=== PATIENT | female | born 1965 | race Caucasian/White ===

== ENCOUNTER 2017-02-09 16:25 | Inpatient (IN) | payer OTHER ==
[2017-02-09 16:36] VITALS: BMI 41.5
--- NOTE | 2017-02-09 17:09 | PDOC ---
History of Present Illness - General History Source: Patient Exam Limitations: No Limitations - History of Present Illness Initial Comments: 02/09/17 17:41 The patient is a 51 year old female, with significant past medical history of DM , chronic lower extremity cellulitis, and gastritis, who presents to the emergency room with 2 days of left lateral thigh redness, warmth and pain, subjective fever, and chills. She explains that she got a sunburn on her legs 2 days ago. She has been putting noxzema on the burn and it started blistering. She noticed that the red area on the lateral portion of her thigh has increased over the past 2 days and has become increasingly painful. She states the pain is throbbing and exacerbated when walking. She also reports that her blood glucose has been abnormally high over the past 2 days around 340-380. She states that she is compliant with her medications and hasn't even been eating much. The patient notes that she is allergic to many antibiotics and not sure which one she can take. Denies chest pain, SOB. Denies nausea, vomiting, diarrhea. Allergies: Penicillin PCP: Dr. Maxwell Vascular: Dr. Wesley Rizzo Infectious Disease: Dr. De Leon 02/09/17 17:55 Patient underwent Doppler studies of bilateral lower extremities on 01/15/17 that were negative. <Chel Bacon - Last Filed: 02/09/17 18:47> <Nadja Zamudio - Last Filed: 02/09/17 19:14> - General Chief Complaint: Pain Stated Complaint: LEG INJURY Time Seen by Provider: 02/09/17 17:08 Past History <Chel Bacon - Last Filed: 02/09/17 18:47> - Past Medical History Anemia: No Asthma: No Cancer: No Cardiac Disorders: No CVA: No COPD: No CHF: No Dementia: No Diabetes: Yes GI Disorders: No Disorders: No HTN: No Hypercholesterolemia: No Liver Disease: No Seizures: No Thyroid Disease: No - Psycho/Social/Smoking Cessation Hx Anxiety: No Suicidal Ideation: No Smoking History: Never smoked Have you smoked in the past 12 months: No Number of Cigarettes Smoked Daily: 0 Information on smoking cessation initiated: No Hx Alcohol Use: No Drug/Substance Use Hx: No Substance Use Type: None Hx Substance Use Treatment: No <Nadja Zamudio - Last Filed: 02/09/17 19:14> - Past Medical History Allergies/Adverse Reactions: Allergies Allergy/AdvReac Type Severity Reaction Status Date / Time nut - unspecified Allergy Verified 02/09/17 16:36 Penicillins Allergy Verified 02/09/17 16:36 Home Medications: Ambulatory Orders Insulin Sliding Scale [Novolog Vial Sliding Scale -] See Protocol SQ ACHS #7 pen 09/19/15 Albuterol Sulfate Inhaler - [Ventolin HFA Inhaler -] 1 - 2 inh PO Q4H #1 inhaler 10/09/15 Bismuth Tribromoph/Petrolatum [Xeroform 5"X9" Gauze Strip] 1 each TP DAILY #10 bandage 10/09/15 Insulin Detemir [Levemir Flextouch] 5 unit SQ HS #0 10/09/15 Nystatin Oral Suspension - [Nystatin Oral Susp 924409 Units/5 ML -] 500,000 units PO Q6HPO 4 Days 10/09/15 Oxycodone HCl [Roxicodone -] 5 mg PO Q6H PRN #10 tablet MDD 4 10/09/15 Pantoprazole Sodium [Protonix -] 40 mg PO BID #60 tablet.ec 10/09/15 Triamcinolone 0.1% Cream [Aristocort 0.1% Cream -] 1 applic TP BID #1 tube 10/08 Clindamycin [Cleocin -] 300 mg PO BID 10/20/15 Review of Systems - Review of Systems Able to Perform ROS?: Yes Comments:: 02/09/17 17:45 GENERAL/CONSTITUTIONAL: +fever, +chills. No weakness. HEAD, EYES, EARS, NOSE AND THROAT: No change in vision. No ear pain or discharge. No sore throat. GASTROINTESTINAL: No nausea, vomiting, diarrhea or constipation. GENITOURINARY: No dysuria, frequency, or change in urination. CARDIOVASCULAR: No chest pain or shortness of breath. RESPIRATORY: No cough, wheezing, or hemoptysis. MUSCULOSKELETAL: No joint or muscle swelling or pain. No neck or back pain. SKIN: +sunburn on the thighs bilaterally with a portion on the lateral left thigh more painful and increasingly warm and red NEUROLOGIC: No headache, vertigo, loss of consciousness, or change in strength/ sensation. ENDOCRINE: No increased thirst. No abnormal weight change. HEMATOLOGIC/LYMPHATIC: No anemia, easy bleeding, or history of blood clots. ALLERGIC/IMMUNOLOGIC: No hives or skin allergy. <Chel Bacon - Last Filed: 02/09/17 18:47> *Physical Exam - Vital Signs Last Vital Signs Temp Pulse Resp BP Pulse Ox 103 F H 111 H 18 167/90 96 02/09/17 16:32 02/09/17 16:32 02/09/17 16:32 02/09/17 16:32 02/09/17 16:32 - Physical Exam Comments: 02/09/17 17:46 Constitutional: Awake, alert, oriented. Obese No acute distress. Head: Normocephalic. Atraumatic Eyes: PERRL. EOMI. Conjunctivae are not pale. Cardiovascular: Tachycardic. Regular rhythm. S1, S2 regular. Distal pulses are 2+ and symmetric. Pulmonary/Chest: Tachypneic. Conversational dyspnea. Worsening dyspnea with exertion. Lung sounds are diminished bilaterally. No wheezing, rales or rhonchi. Abdominal: Soft, obese, non distended. There is no tenderness. No rebound, guarding or rigidity. No organomegaly. No palpable masses. Good bowel sounds. Back: No CVA tenderness. Musculoskeletal: +There wound dressings below the knee bilaterally with foul odor and serous drainage. +On the medial aspect of the left thigh she has a second degree sunburn with blistering and surrounding erythema. On the lateral aspect of the left thigh there is some first degree sunburn with surrounding cellulitis that extends from the knee to hip and is tender with soft tissue swelling. No crepitus. No fluctuance, No drainage. Radial/pedal pulses are intact and 2+ bilaterally Neurological: Alert and oriented to person, place, and time. Cranial nerves II -XII are grossly intact. Normal speech. Strength is grossly symmetric. No sensory deficits. Psychiatric: Good eye contact. Normal interaction, affect and behavior. <Alejandra Baconica - Last Filed: 02/09/17 18:47> - Vital Signs Last Vital Signs Temp Pulse Resp BP Pulse Ox 103 F H 111 H 18 167/90 96 02/09/17 16:32 02/09/17 16:32 02/09/17 16:32 02/09/17 16:32 02/09/17 16:32 <Nadja Zamudio - Last Filed: 02/09/17 19:14> ED Treatment Course - LABORATORY CBC & Chemistry Diagram: 02/09/17 18:15 02/09/17 18:15 <Chel Bacon - Last Filed: 02/09/17 18:47> - LABORATORY CBC & Chemistry Diagram: 02/09/17 18:15 02/09/17 18:15 <Nadja Zamudio - Last Filed: 02/09/17 19:14> Medical Decision Making - Medical Decision Making 02/09/17 18:37 Dr. Maxwell was paged via paging service at 6:33pm for admission. Awaiting call back Dr. Maxwell called back at 6:38pm. Dr. Rizzo was paged via paging service at 6:35pm. Awaiting call back. Dr. Rizzo called back at 6:40pm 02/09/17 18:47 Dr. De Leon was paged via paging service at 6:47pm. Awaiting call back. <Chel Bacon - Last Filed: 02/09/17 18:47> - Medical Decision Making 02/09/17 18:01 a/p: 51yo female with L thigh pain, hx of cellulitis -sunburns now with worsening redness, pain, cellulitis to thigh -also with concern for uncontrolled dm with elevated glucose of 340 at home -labs -vbg -cultures -cxr -acetone -ivf hydration -will discuss with Dr. Maxwell and with Dr. Rizzo. 02/09/17 18:[address] Maxwell who accepts pt to service. Case discussed with dr. rizzo who will see pt in consult -call placed to dr. steel for abx recommendations 02/09/17 19:13 pt pending call back from ID and labs. Pt with elevated WBC. Pt will need admission. Pt pending plan from ID and will be signed out to the oncoming ED physician. <Nadja Zamudio - Last Filed: 02/09/17 19:14> *DC/Admit/Observation/Transfer - Attestations Scribe Attestion: 02/09/17 18:06 Documentation prepared by ISABELLA Abrams, acting as medical assistant internal medicine for Nadja Zamudio DO. <Chel Bacon - Last Filed: 02/09/17 18:47> - Attestations Physician Attestion: 02/09/17 19:14 I, Dr. Nadja Zamudio DO, attest that this document has been prepared under my direction and personally reviewed by me in its entirety. I further attest, that it accurately reflects all work, treatment, procedures and medical decision -making performed by me. <Nadja Zamudio - Last Filed: 02/09/17 19:14> Diagnosis at time of Disposition: Cellulitis, Metabolic acidosis Diagnosis at time of Disposition: (Ruled Out): Cellulitis and abscess of left lower extremity - Referrals Referrals: Onur Maxwell MD [Primary Care Provider] -
[2017-02-09] MEDS ORDERED: SODIUM CHLORIDE 0.9% 1000 ML INFUS.BAG IV ONE (17:32)
[2017-02-09] MEDS ORDERED: morphine CARPU-JECT 4 MG/1 ML DISP.SYRIN IVPUSH ONE (17:32)
[2017-02-09] MEDS ORDERED: ACETAMINOPHEN 325 MG TABLET (FP) PO ONE (17:32)
[2017-02-09 18:28] LABS: MCH 27.4 pg (25.7-33.7); MCHC 32.1 g/dl (32.0-36.0); MEAN CELL VOLUME 85.4 fl (80-96); MEAN PLT VOLUME 9.2 fl (7.5-11.1); PLATELET COUNT 356 K/MM3 (134-434); RDW 15.5 % (11.6-15.6)
[2017-02-09 18:32] LABS: WHITE BLOOD COUNT 29.6 K/mm3 (4.0-10.0)
[2017-02-09] MEDS ORDERED: morphine CARPU-JECT 4 MG/1 ML DISP.SYRIN ONE (18:35)
[2017-02-09 18:37] LABS: VENOUS PH 7.29 (7.32-7.42)
[2017-02-09] MEDS ORDERED: ACETAMINOPHEN 325 MG TABLET (FP) ONE (18:57)
[2017-02-09 19:24] LABS: ALBUMIN 2.7 g/dl (3.4-5.0); ALK PHOS 163 U/L (45-117); ANION GAP 11 (8-16); BILIRUBIN,TOTAL 0.5 mg/dL (0.2-1.0); CO2 20 mmol/L (21-32); CREATININE 1.5 mg/dL (0.55-1.02); GLUCOSE,RANDOM 220 mg/dL (74-106); MAGNESIUM 2.4 mg/dL (1.8-2.4); SGOT/AST 12 U/L (15-37); SGPT/ALT 29 U/L (12-78); TOT PROT 7.2 g/dl (6.4-8.2)
[2017-02-09 19:30] LABS: PLATELET ESTIMATE ADEQUATE (NORMAL); TOTAL CELLS COUNTED 100
[2017-02-09] MEDS ORDERED: ALBUTEROL SO4 2.5/IPRATROPIUM 0.5 INH SOL 3 ML VIAL.NEB. NEB PRN (19:38)
[2017-02-09] MEDS ORDERED: CLINDAMYCIN 600MG PREMIX IVPB 50 ML IVPB ONE ×2 (20:18→20:34)
[2017-02-09] MEDS ORDERED: MEROPENEM 1,000 MG in DEXTROSE 5%-WATER - 100 ML IVPB ONE (20:19)
--- NOTE | 2017-02-09 20:23 | PDOC ---
*Physical Exam - Vital Signs Last Vital Signs Temp Pulse Resp BP Pulse Ox 103 F H 111 H 18 167/90 96 02/09/17 16:32 02/09/17 16:32 02/09/17 16:32 02/09/17 16:32 02/09/17 16:32 <Jer Bruno - Last Filed: 02/09/17 20:26> - Vital Signs Last Vital Signs Temp Pulse Resp BP Pulse Ox 103 F H 111 H 18 167/90 96 02/09/17 16:32 02/09/17 16:32 02/09/17 16:32 02/09/17 16:32 02/09/17 16:32 <Alex De Leon I - Last Filed: 02/09/17 20:59> Heart Score/ECG Review #1 ECG reviewed & interpreted by me at: 20:15 02/09/17 20:27 Vent. rate: 105 bpm ND interval: 164 ms QRS duration: 84 ms QT/QTc: 310/409 ms P-R-T axes: 76 14 15 Poor data quality, interpretation may be adversly affected. Sinus tachycardia Cannot rule out Anterior infarct, age undetermined Abnormal ECG <Jer Bruno - Last Filed: 02/09/17 20:26> ED Treatment Course - LABORATORY CBC & Chemistry Diagram: 02/09/17 18:15 02/09/17 18:15 - ADDITIONAL ORDERS Additional order review: Laboratory Results 02/09/17 02/09/17 02/09/17 18:55 18:18 18:15 VBG pH 7.29 L POC VBG pCO2 42.8 D POC VBG pO2 22.9 L D Mixed VBG HCO3 20.0 Sodium Potassium Chloride Carbon Dioxide Anion Gap BUN Creatinine Creat Clearance w eGFR POC Glucometer [phone] Random Glucose Lactic Acid 2.5 H* Calcium Magnesium Total Bilirubin AST ALT Alkaline Phosphatase Total Protein Albumin Acetone, Qual 02/09/17 02/09/17 18:15 18:15 VBG pH POC VBG pCO2 POC VBG pO2 Mixed VBG HCO3 Sodium 139 Potassium 3.9 Chloride 108 H Carbon Dioxide 20 L Anion Gap 11 BUN 29 H D Creatinine 1.5 H D Creat Clearance w eGFR 36.32 POC Glucometer Random Glucose 220 H D Lactic Acid Calcium 9.0 Magnesium 2.4 D Total Bilirubin 0.5 AST 12 L ALT 29 D Alkaline Phosphatase 163 H D Total Protein 7.2 D Albumin 2.7 L Acetone, Qual Negative L 02/09/17 02/09/17 18:55 18:15 RBC 3.60 MCV 85.4 MCHC 32.1 RDW 15.5 D MPV 9.2 Neutrophils % No Result Required. Lymphocytes % No Result Required. POC Glucometer [phone] - RADIOLOGY Comments: CT to rule out necrotizing fasciitis. - Medications Given in the ED: ED Medications Discontinued Medications Generic Name Dose Route Start Last Admin Trade Name Freq PRN Reason Stop Dose Admin Acetaminophen 975 mg 02/09/17 17:32 02/09/17 18:59 Tylenol - PO 02/09/17 17:33 975 mg ONCE ONE Administration Morphine Sulfate 4 mg 02/09/17 17:32 02/09/17 18:39 Morphine Injection - IVPUSH 02/09/17 17:33 4 mg ONCE ONE Administration Sodium Chloride 1,000 ml 02/09/17 17:32 02/09/17 18:39 Normal Saline - IV 02/09/17 17:33 1,000 ml ONCE ONE Administration - Consult/PCP Time Called: 20:10 Case discussed with consulting physician: Lynda De Leon Consult Reason/Comments: Suggested administration of meropenem, vancomycin, and clindamycin. <Jer Bruno - Last Filed: 02/09/17 20:26> - LABORATORY CBC & Chemistry Diagram: 02/09/17 18:15 02/09/17 18:15 - ADDITIONAL ORDERS Additional order review: Laboratory Results 02/09/17 02/09/17 02/09/17 18:55 18:18 18:15 VBG pH 7.29 L POC VBG pCO2 42.8 D POC VBG pO2 22.9 L D Mixed VBG HCO3 20.0 Sodium Potassium Chloride Carbon Dioxide Anion Gap BUN Creatinine Creat Clearance w eGFR POC Glucometer [phone] Random Glucose Lactic Acid 2.5 H* Calcium Magnesium Total Bilirubin AST ALT Alkaline Phosphatase Total Protein Albumin Acetone, Qual 02/09/17 02/09/17 18:15 18:15 VBG pH POC VBG pCO2 POC VBG pO2 Mixed VBG HCO3 Sodium 139 Potassium 3.9 Chloride 108 H Carbon Dioxide 20 L Anion Gap 11 BUN 29 H D Creatinine 1.5 H D Creat Clearance w eGFR 36.32 POC Glucometer Random Glucose 220 H D Lactic Acid Calcium 9.0 Magnesium 2.4 D Total Bilirubin 0.5 AST 12 L ALT 29 D Alkaline Phosphatase 163 H D Total Protein 7.2 D Albumin 2.7 L Acetone, Qual Negative L 02/09/17 02/09/17 18:55 18:15 RBC 3.60 MCV 85.4 MCHC 32.1 RDW 15.5 D MPV 9.2 Neutrophils % No Result Required. Lymphocytes % No Result Required. POC Glucometer [phone] - Medications Given in the ED: ED Medications Discontinued Medications Generic Name Dose Route Start Last Admin Trade Name Freq PRN Reason Stop Dose Admin Acetaminophen 975 mg 02/09/17 17:32 02/09/17 18:59 Tylenol - PO 02/09/17 17:33 975 mg ONCE ONE Administration Morphine Sulfate 4 mg 02/09/17 17:32 02/09/17 18:39 Morphine Injection - IVPUSH 02/09/17 17:33 4 mg ONCE ONE Administration Sodium Chloride 1,000 ml 02/09/17 17:32 02/09/17 18:39 Normal Saline - IV 02/09/17 17:33 1,000 ml ONCE ONE Administration <Alex De Leon I - Last Filed: 02/09/17 20:59> Progress Note - Progress Note Progress Note: Care of this patient transferred to ne at 7pm. Pt is an insulin dependant diabetic with chronic venous stasis and frequent infections. Pt has a leg cellulites, mkd elevated wbc of 29,000. with big left shift. Pt will get CT to r/o nec. fasc. and start on antibiotics post ID consult. <Alex De Leon I - Last Filed: 02/09/17 20:59> *DC/Admit/Observation/Transfer <Jer Bruno - Last Filed: 02/09/17 20:26> - Discharge Dispostion Admit: Yes <Alex De Leon I - Last Filed: 02/09/17 20:59> Diagnosis at time of Disposition: Cellulitis, Metabolic acidosis - Referrals Referrals: Onur Maxwell MD [Primary Care Provider] - - Patient Instructions - Post Discharge Activity
[2017-02-09] MEDS ORDERED: INSULIN DETEMIR 100 UNITS/ML MDV SQ SCH (22:00)
[2017-02-09] MEDS ORDERED: VANCOMYCIN 1 GRAM (PRE-DOCKED) 1,000 MG/250 ML BAG IVPB ONE (22:30)
[2017-02-09] MEDS: VANCOMYCIN 1 GRAM (PRE-DOCKED) 1,000 MG/250 ML BAG IVPB ONE ×3 (22:45→23:08)
[2017-02-09] MEDS: INSULIN SLIDING SCALE (NOVOLOG) 1 VIAL SQ SCH (22:48)
[2017-02-09] MEDS: INSULIN DETEMIR 100 UNITS/ML MDV SQ SCH (22:48)
[2017-02-09] MEDS: HEPARIN NA (PORCINE) 5,000 UNITS/ML 1ML VIAL SQ SCH (22:49)
[2017-02-09] MEDS: BACITRACIN 15 GM TUBE TOPICAL OINTMENT TP SCH (22:50)
[2017-02-09] MEDS: ACETAMINOPHEN 325 MG TABLET (FP) PO PRN (23:50)
[2017-02-10] MEDS: INSULIN SLIDING SCALE (NOVOLOG) 1 VIAL SQ SCH ×4 (07:05→21:40)
[2017-02-10 07:16] LABS: MCH 27.3 pg (25.7-33.7); MCHC 31.3 g/dl (32.0-36.0); MEAN CELL VOLUME 87.2 fl (80-96); MEAN PLT VOLUME 9.2 fl (7.5-11.1); PLATELET COUNT 404 K/MM3 (134-434); RDW 15.5 % (11.6-15.6)
[2017-02-10 07:25] LABS: WHITE BLOOD COUNT 38.4 K/mm3 (4.0-10.0)
[2017-02-10 07:45] LABS: ALBUMIN 2.4 g/dl (3.4-5.0); ANION GAP 15 (8-16); CALCIUM 8.6 mg/dL (8.5-10.1); CO2 17 mmol/L (21-32); GLUCOSE,RANDOM 275 mg/dL (74-106); SGOT/AST 11 U/L (15-37); SGPT/ALT 24 U/L (12-78)
[2017-02-10 07:47] LABS: ALK PHOS 148 U/L (45-117); BILIRUBIN,TOTAL 1.2 mg/dL (0.2-1.0); CREATININE 2.6 mg/dL (0.55-1.02); TOT PROT 6.1 g/dl (6.4-8.2)
[2017-02-10 08:59] LABS: PLATELET ESTIMATE ADEQUATE (NORMAL); TOTAL CELLS COUNTED 10
[2017-02-10] MEDS: PANTOPRAZOLE 40 MG TABLET (FP) PO SCH (10:29)
[2017-02-10] MEDS: ACETAMINOPHEN 325 MG TABLET (FP) PO PRN ×2 (10:29→21:55)
[2017-02-10] MEDS: HEPARIN NA (PORCINE) 5,000 UNITS/ML 1ML VIAL SQ SCH ×2 (10:29→21:32)
[2017-02-10] MEDS: BACITRACIN 15 GM TUBE TOPICAL OINTMENT TP SCH ×2 (10:30→21:34)
[2017-02-10] MEDS ORDERED: PT OWN MED DRAWER 7, Y5N ONE ×2 (10:50→14:05)
[2017-02-10] MEDS: NYSTATIN POWDER 100,000 UNITS/GM - 15 GM TOPICAL POWDER TP SCH (10:55)
--- NOTE | 2017-02-10 11:20 | HP ---
Admitting History and Physical - Primary Care Physician PCP: Onur Maxwell - Admission Chief Complaint: ACUTE ON CHRONIC CELLULITIS TO LEGS WITH SKIN ULCERS History of Present Illness: The patient is a 51 year old female, with significant past medical history of DM , chronic lower extremity cellulitis, and gastritis, who presents to the emergency room with 2 days of left lateral thigh redness, warmth and pain, subjective fever, and chills. She explains that she got a sunburn on her legs 2 days ago. She has been putting noxzema on the burn and it started blistering. She noticed that the red area on the lateral portion of her thigh has increased over the past 2 days and has become increasingly painful. She states the pain is throbbing and exacerbated when walking. She also reports that her blood glucose has been abnormally high over the past 2 days around 340-380. She states that she is compliant with her medications and hasn't even been eating much. The patient notes that she is allergic to many antibiotics and not sure which one she can take. History Source: Patient, Medical Record Limitations to Obtaining History: Poor Historian - Past Medical History Pulmonary: Yes: Asthma Gastrointestinal: Yes: Other (gallstones) Heme/Onc: Yes: Other Psych: Yes: Bipolar Endocrine: Yes: Diabetes Mellitus Dermatology: Yes: Cellulitis - Smoking History Smoking history: Never smoked Have you smoked in the past 12 months: No Aproximately how many cigarettes per day: 0 - Alcohol/Substance Use Hx Alcohol Use: No History of Substance Use: reports: Prescription (narcotics) Home Medications - Allergies Allergies/Adverse Reactions: Allergies Allergy/AdvReac Type Severity Reaction Status Date / Time nut - unspecified Allergy Verified 02/09/17 16:36 Penicillins Allergy Verified 02/09/17 16:36 - Home Medications Home Medications: Ambulatory Orders Insulin Sliding Scale [Novolog Vial Sliding Scale -] See Protocol SQ ACHS #7 pen 09/19/15 Albuterol Sulfate Inhaler - [Ventolin HFA Inhaler -] 1 - 2 inh PO Q4H #1 inhaler 10/09/15 Insulin Detemir [Levemir Flextouch] 5 unit SQ HS #0 10/09/15 Oxycodone HCl [Roxicodone -] 5 mg PO Q6H PRN #10 tablet MDD 4 10/09/15 Pantoprazole Sodium [Protonix -] 40 mg PO BID #60 tablet.ec 10/09/15 Clindamycin [Cleocin -] 300 mg PO BID 10/20/15 Gabapentin 0 mg PO DAILY 02/09/17 Multivitamin [Poly-Vitamin] 1 each PO DAILY 02/09/17 Family Disease History - Family Disease History Family Disease History: Other: Brother (stomach cancer), Sister (breast cancer) Review of Systems - Review of Systems Constitutional: reports: Fever, Lethargy, Weakness Eyes: reports: No Symptoms HENT: reports: No Symptoms Neck: reports: No Symptoms Cardiovascular: reports: No Symptoms Respiratory: reports: Wheezing Genitourinary: reports: No Symptoms Musculoskeletal: reports: Extremity Pain, Joint Swelling, Muscle Weakness Integumentary: reports: Blister, Erythema, Rash, Wound Neurological: reports: Other Endocrine: reports: No Symptoms Hematology/Lymphatic: reports: No Symptoms Psychiatric: reports: Altered Sleep Pattern, Other Physical Examination Vital Signs: Vital Signs Temperature 100 F H 02/10/17 07:56 Pulse Rate 92 H 02/10/17 07:56 Respiratory Rate 22 02/10/17 07:56 Blood Pressure 98/56 02/10/17 07:56 O2 Sat by Pulse Oximetry (%) 96 02/09/17 22:40 Constitutional: Yes: Moderate Distress Eyes: Yes: WNL HENT: Yes: WNL Neck: Yes: WNL Cardiovascular: Yes: WNL Respiratory: Yes: SOB, Wheezes Gastrointestinal: Yes: WNL Renal/: Yes: WNL Musculoskeletal: Yes: Muscle Weakness Extremities: Yes: Erythema Edema: Yes Edema: LLE: 3+, RLE: 3+ Peripheral Pulses WNL: Yes Integumentary: Yes: Erythema, Pressure Ulcer, Rash, Venous Stasis Changes, Other Wound/Incision: Yes: Dressing Dry and Intact, Draining Neurological: Yes: Pre-Existing Deficit ...Motor Strength: LLE, RLE Psychiatric: Yes: Other Labs: CBC, BMP 02/10/17 06:30 02/10/17 06:30 Problem List - Problems (1) Cellulitis Code(s): L03.90 - CELLULITIS, UNSPECIFIED Qualifiers: Site of cellulitis of extremity: lower extremity Laterality: right (2) Allergic reaction Code(s): T78.40XA - ALLERGY, UNSPECIFIED, INITIAL ENCOUNTER (3) DM2 (diabetes mellitus, type 2) Code(s): E11.9 - TYPE 2 DIABETES MELLITUS WITHOUT COMPLICATIONS Qualifiers: Diabetes mellitus complication detail: with other circulatory complications (4) Sleep apnea Code(s): G47.30 - SLEEP APNEA, UNSPECIFIED Qualifiers: Sleep apnea type: idiopathic sleep related nonobstructive alveolar hypoventilation Qualified Code(s): G47.34 - Idiopathic sleep related nonobstructive alveolar hypoventilation (5) Asthma Code(s): J45.909 - UNSPECIFIED ASTHMA, UNCOMPLICATED Qualifiers: Asthma severity: mild intermittent (6) Obesity Code(s): E66.9 - OBESITY, UNSPECIFIED Qualifiers: Obesity type: due to excess calories Body mass index: BMI 50.0-59.9 Assessment/Plan WOUNDS EXAMINED B/L LEGS WITH MULTIPLES ULCERS ERYTHEMA, SKIN EXCORIATIONS, WEEPING EDEMA. D/W DR JAIN, PATIENT WILL NEED IV ABX WOUND CARE ID CONSULT ASTHMA START NEBS SLEEP STUDY OUTPATIENT PULM F/U COMPLIANCE TO DIET AND MEDICATIONS
--- NOTE | 2017-02-10 11:22 | CONSULT ---
Consult - Past Medical History Gastrointestinal: Yes: Other (gallstones) Psych: Yes: Bipolar Endocrine: Yes: Diabetes Mellitus Dermatology: Yes: Cellulitis - Alcohol/Substance Use Hx Alcohol Use: No History of Substance Use: reports: Prescription (narcotics) - Smoking History Smoking history: Never smoked Have you smoked in the past 12 months: No Aproximately how many cigarettes per day: 0 Home Medications - Allergies Allergies/Adverse Reactions: Allergies Allergy/AdvReac Type Severity Reaction Status Date / Time nut - unspecified Allergy Verified 02/09/17 16:36 Penicillins Allergy Verified 02/09/17 16:36 - Home Medications Home Medications: Ambulatory Orders Insulin Sliding Scale [Novolog Vial Sliding Scale -] See Protocol SQ ACHS #7 pen 09/19/15 Albuterol Sulfate Inhaler - [Ventolin HFA Inhaler -] 1 - 2 inh PO Q4H #1 inhaler 10/09/15 Insulin Detemir [Levemir Flextouch] 5 unit SQ HS #0 10/09/15 Oxycodone HCl [Roxicodone -] 5 mg PO Q6H PRN #10 tablet MDD 4 10/09/15 Pantoprazole Sodium [Protonix -] 40 mg PO BID #60 tablet.ec 10/09/15 Clindamycin [Cleocin -] 300 mg PO BID 10/20/15 Gabapentin 0 mg PO DAILY 02/09/17 Multivitamin [Poly-Vitamin] 1 each PO DAILY 02/09/17 Family Disease History - Family Disease History Family Disease History: Other: Brother (stomach cancer), Sister (breast cancer) Physical Exam Vital Signs: Vital Signs Temperature 100 F H 02/10/17 07:56 Pulse Rate 92 H 02/10/17 07:56 Respiratory Rate 22 02/10/17 07:56 Blood Pressure 98/56 02/10/17 07:56 O2 Sat by Pulse Oximetry (%) 96 02/09/17 22:40 Labs: CBC, BMP 02/10/17 06:30 02/10/17 06:30 Assessment/Plan Vascular Surgery The patient is a 51 year old female, with significant past medical history of DM , chronic lower extremity cellulitis, and gastritis, who presents to the emergency room with 2 days of left lateral thigh redness, warmth and pain, subjective fever, and chills. She explains that she got a sunburn on her legs 2 days ago. She has been putting noxzema on the burn and it started blistering. She noticed that the red area on the lateral portion of her thigh has increased over the past 2 days and has become increasingly painful. She states the pain is throbbing and exacerbated when walking. She also reports that her blood glucose has been abnormally high over the past 2 days around 340-380. She states that she is compliant with her medications and hasn't even been eating much. The patient notes that she is allergic to many antibiotics and not sure which one she can take. Denies chest pain, SOB. Denies nausea, vomiting, diarrhea. Allergies: Penicillin PCP: Dr. Maxwell Vascular: Dr. Wesley Calderon Infectious Disease: Dr. De Leon 02/09/17 17:55 Patient underwent Doppler studies of bilateral lower extremities on 01/15/17 that were negative. PE Head - NC/AT Lung - CTA Heart - RRR abd - soft,nt,nd ext - bilateral lower ext venous stasis ulcers with weeping. Left thigh erythema, tender to touch Palpable pulses. A/P Bilateral lower ext lymphedema with venous stasis ulcers with weeping. Now with cellulitis of left thigh , tender to touch. Dressings changed. Xeroform/ABD pads, MARIS for compression. ID on case for celllulitis Leg elevation. Pt will need to come to wound care clinic for weekly changes. Will follow Wesley Calderon DO
--- NOTE | 2017-02-10 11:51 | CON.ID ---
Consult Consult Specialty:: INFECTIOUS DISEASE - History of Present Illness Chief Complaint: LLE pain History of Present Illness: Asked to evaluate this 51 y.o. female with history of IDDM, LE chronic cellulitis, gastritis, asthma,and obesity who is coming in with LLE severe,pain , warmth, erythema, and fever/chills. States condition has worsened in the last 2 days and her glucose has been elevated, >300. She was noted to have fever ( 100.3F) and elevated wbc. She also states that she believe that Lt upper thigh erythema is due to a sunburn and she has been applying noxema to it. 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: No: Alzheimer's, CVA, Dementia, Migraine, Multiple Sclerosis, Peripheral Neuropathy, Parkinson's, Seizure, Syncope, TIA, Vertigo, Other Cardio/Vascular: No: AFIB, Aneurysm, Aortic Insufficiency, Aortic Stenosis, CAD , CHF, Deep Vein Thrombosis, HTN, Hyperlipdemia, LA, Mitral Insufficiency, Mitral Stenosis, Murmur, Pulmonary Hypertension, Other Pulmonary: Yes: Asthma Gastrointestinal: Yes: Other (gallstones) Hepatobiliary: No: Cirrhosis, Cholelithiasis, Cholecystitis, Choledocholithiasis , Hepatitis A, Hepatitis B, Hepatitis C, Other Reproductive: No: Ectopic , Endometriosis, Fibroids, PID, Polycystic Ovary Syndrome, Postmenopausal, Other Heme/Onc: No: Anemia, B12 Deficiency, Bleeding Disorder, Cancer, Current Chemotherapy, Current Radiation Therapy, Hemochromatosis, Hypercoaguable State, Myeloproliferative Synd, Sickle Cell Disease, Sickle Cell Trait, Thrombocytopenia, Other Infectious Disease: Yes: Other (LE cellulitis) Psych: Yes: Bipolar Musculoskeletal: No: Bursitis, Chronic low back pain, Hemiparesis, Hemiplegia, Osteoarthritis, Paraplegia, Other Rheumatology: No: Fibromyalgia, Gout, Lupus, Rheumatoid Arthritis, Sarcoidosis, Vasculitis, Other Endocrine: Yes: Diabetes Mellitus Dermatology: Yes: Cellulitis (b/l LE with ulcerations) - Past Surgical History Past Surgical History: No: None, AAA Repair, AICD, Amputation, Appendectomy, Arthrosocopy, AV Fistula/Graft, Bariatric Surgery, Breast Biopsy, Bypass, CABG, Carotid Endarterectomy, Cataract Removal, Cholecystectomy, Colectomy, Colonoscopy, Colostomy, Craniotomy, , Cystectomy, Hernia Repair, Hysterectomy, Ileal Conduit, Ileosotomy, Joint Replacement, Kidney Transplant, Laminectomy, Liver Transplant, Mastectomy, Nephrectomy, Oopherectomy, Orchiectomy, Permanent Pacemaker, Prostatectomy, Splenectomy, Stent, Thoracotomy , TURP, Tonsillectomy, Tubal Ligation, Upper Endoscopy, Valve Replacement, Vasectomy, Vein Stripping/Ligation - Alcohol/Substance Use Hx Alcohol Use: No History of Substance Use: reports: Prescription (narcotics) - Smoking History Smoking history: Never smoked Have you smoked in the past 12 months: No Aproximately how many cigarettes per day: 0 Home Medications - Allergies Allergies/Adverse Reactions: Allergies Allergy/AdvReac Type Severity Reaction Status Date / Time nut - unspecified Allergy Verified 02/09/17 16:36 Penicillins Allergy Verified 02/09/17 16:36 - Home Medications Home Medications: Ambulatory Orders Insulin Sliding Scale [Novolog Vial Sliding Scale -] See Protocol SQ ACHS #7 pen 09/19/15 Albuterol Sulfate Inhaler - [Ventolin HFA Inhaler -] 1 - 2 inh PO Q4H #1 inhaler 10/09/15 Insulin Detemir [Levemir Flextouch] 5 unit SQ HS #0 10/09/15 Oxycodone HCl [Roxicodone -] 5 mg PO Q6H PRN #10 tablet MDD 4 10/09/15 Pantoprazole Sodium [Protonix -] 40 mg PO BID #60 tablet.ec 10/09/15 Clindamycin [Cleocin -] 300 mg PO BID 10/20/15 Gabapentin 0 mg PO DAILY 02/09/17 Multivitamin [Poly-Vitamin] 1 each PO DAILY 02/09/17 Family Disease History - Family Disease History Family Disease History: Other: Brother (stomach cancer), Sister (breast cancer) Review of Systems - Review of Systems Constitutional: reports: Chills, Fever Eyes: reports: No Symptoms HENT: reports: No Symptoms Neck: reports: No Symptoms Cardiovascular: reports: No Symptoms Respiratory: reports: No Symptoms Gastrointestinal: reports: No Symptoms Genitourinary: reports: No Symptoms Breasts: reports: No Symptoms Reported Musculoskeletal: reports: No Symptoms Integumentary: reports: Blister, Erythema Neurological: reports: No Symptoms Physical Exam Vital Signs: Vital Signs Temperature 100 F H 02/10/17 07:56 Pulse Rate 92 H 02/10/17 07:56 Respiratory Rate 22 02/10/17 07:56 Blood Pressure 98/56 02/10/17 07:56 O2 Sat by Pulse Oximetry (%) 96 02/09/17 22:40 Constitutional: Yes: No Distress Neck: Yes: Supple Cardiovascular: Yes: Regular Rate and Rhythm Respiratory: Yes: Regular Gastrointestinal: Yes: Normal Bowel Sounds, Soft Renal/: Yes: WNL Musculoskeletal: Yes: WNL Extremities: Yes: Erythema Integumentary: Yes: Erythema, Venous Stasis Changes (B/L LE erythema, LLE ulcerations with green, malodorous discharge. LLE erythema/pain extending to Lt lateral upper thigh) Wound/Incision: Yes: Draining (LLE ulcers weeping) Neurological: Yes: Alert ...Motor Strength: WNL Psychiatric: Yes: Alert Labs: CBC, BMP 02/10/17 06:30 02/10/17 06:30 Problem List - Problems (1) Asthma Code(s): J45.909 - UNSPECIFIED ASTHMA, UNCOMPLICATED Qualifiers: Asthma severity: mild intermittent (2) Cellulitis Code(s): L03.90 - CELLULITIS, UNSPECIFIED Qualifiers: Site of cellulitis of extremity: lower extremity Laterality: right (3) Obesity Code(s): E66.9 - OBESITY, UNSPECIFIED Qualifiers: Obesity type: due to excess calories Body mass index: BMI 50.0-59.9 (4) Acute renal failure Code(s): N17.9 - ACUTE KIDNEY FAILURE, UNSPECIFIED (5) Chronic cellulitis Code(s): L03.90 - CELLULITIS, UNSPECIFIED (6) DM2 (diabetes mellitus, type 2) Code(s): E11.9 - TYPE 2 DIABETES MELLITUS WITHOUT COMPLICATIONS Qualifiers: Diabetes mellitus complication detail: with other circulatory complications (7) Leukocytosis Code(s): D72.829 - ELEVATED WHITE BLOOD CELL COUNT, UNSPECIFIED (8) Sepsis Code(s): A41.9 - SEPSIS, UNSPECIFIED ORGANISM Qualifiers: Sepsis type: sepsis due to unspecified organism Qualified Code(s): A41.9 - Sepsis, unspecified organism (9) Fever Code(s): R50.9 - FEVER, UNSPECIFIED Assessment/Plan B/L LE cellulitis, L>R LLE infected ulcers Febrile Elevated wbc Sepsis - recommend Vancomycin/Meropenem/Clindamycin - monitor closely for signs of allergic reaction to Meropenem (has tolerated before) - suggest LLE Xray - monitor wbc, renal function - wound care, leg elevation
[2017-02-10] MEDS: oxyCODONE HCL 5 MG TABLET PO PRN (13:45)
[2017-02-10] MEDS: SILVER SULFADIAZINE 1% TOP CREAM 50 GM JAR TP SCH (13:55)
[2017-02-10] MEDS: BUDESONIDE/FORMETEROL FUMARATE 80/4.5 mcg INHALER IH SCH ×2 (13:55→21:32)
[2017-02-10] MEDS ORDERED: SODIUM CHLORIDE 0.45% 1,000 ML IV SCH (15:45)
--- NOTE | 2017-02-10 17:51 | CON.NEP ---
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: Alzheimer's, CVA, Dementia, Migraine, Multiple Sclerosis, Peripheral Neuropathy, Parkinson's, Seizure, Syncope, TIA, Vertigo, Other Cardio/Vascular: No: AFIB, Aneurysm, Aortic Insufficiency, Aortic Stenosis, CAD , CHF, Deep Vein Thrombosis, HTN, Hyperlipdemia, PA, Mitral Insufficiency, Mitral Stenosis, Murmur, Pulmonary Hypertension, Other Pulmonary: Yes: Asthma Gastrointestinal: Yes: Other (gallstones) Hepatobiliary: No: Cirrhosis, Cholelithiasis, Cholecystitis, Choledocholithiasis , Hepatitis A, Hepatitis B, Hepatitis C, Other Infectious Disease: Yes: Other (LE cellulitis) Psych: Yes: Bipolar Musculoskeletal: No: Bursitis, Chronic low back pain, Hemiparesis, Hemiplegia, Osteoarthritis, Paraplegia, Other Rheumatology: No: Fibromyalgia, Gout, Lupus, Rheumatoid Arthritis, Sarcoidosis, Vasculitis, Other Endocrine: Yes: Diabetes Mellitus Dermatology: Yes: Cellulitis (b/l LE with ulcerations) - Past Surgical History Past Surgical History: No: None, AAA Repair, AICD, Amputation, Appendectomy, Arthrosocopy, AV Fistula/Graft, Bariatric Surgery, Breast Biopsy, Bypass, CABG, Carotid Endarterectomy, Cataract Removal, Cholecystectomy, Colectomy, Colonoscopy, Colostomy, Craniotomy, , Cystectomy, Hernia Repair, Hysterectomy, Ileal Conduit, Ileosotomy, Joint Replacement, Kidney Transplant, Laminectomy, Liver Transplant, Mastectomy, Nephrectomy, Oopherectomy, Orchiectomy, Permanent Pacemaker, Prostatectomy, Splenectomy, Stent, Thoracotomy , TURP, Tonsillectomy, Tubal Ligation, Upper Endoscopy, Valve Replacement, Vasectomy, Vein Stripping/Ligation - Alcohol/Substance Use Hx Alcohol Use: No History of Substance Use: reports: Prescription (narcotics) - Smoking History Smoking history: Never smoked Have you smoked in the past 12 months: No Aproximately how many cigarettes per day: 0 Home Medications - Allergies Allergies/Adverse Reactions: Allergies Allergy/AdvReac Type Severity Reaction Status Date / Time nut - unspecified Allergy Verified 02/09/17 16:36 Penicillins Allergy Verified 02/09/17 16:36 - Home Medications Home Medications: Ambulatory Orders Insulin Sliding Scale [Novolog Vial Sliding Scale -] See Protocol SQ ACHS #7 pen 09/19/15 Albuterol Sulfate Inhaler - [Ventolin HFA Inhaler -] 1 - 2 inh PO Q4H #1 inhaler 10/09/15 Insulin Detemir [Levemir Flextouch] 5 unit SQ HS #0 10/09/15 Oxycodone HCl [Roxicodone -] 5 mg PO Q6H PRN #10 tablet MDD 4 10/09/15 Pantoprazole Sodium [Protonix -] 40 mg PO BID #60 tablet.ec 10/09/15 Clindamycin [Cleocin -] 300 mg PO BID 10/20/15 Gabapentin 0 mg PO DAILY 02/09/17 Multivitamin [Poly-Vitamin] 1 each PO DAILY 02/09/17 Family Disease History - Family Disease History Family History: Unable to Obtain Family Disease History: Other: Brother (stomach cancer), Sister (breast cancer) Review of Systems - Review of Systems Constitutional: reports: No Symptoms Eyes: denies: No Symptoms, Blind Spots, Blurred Vision, Double Vision, Eye Pain , Floaters, Photophobia, Recent Change in Vision, Other HENT: denies: No Symptoms, Difficult Swallowing, Ear Discharge, Ear Pain, Epistaxis, Gingival Bleeding, Hearing Loss, Mouth Swelling, Nasal Congestion, Ocular Prosthesis, Throat Pain, Toothache, Ringing in Ears, Other Neck: denies: No Symptoms, Decreased ROM, Lumps, Pain on Movement, Stiffness, Swollen Glands, Tenderness, Other Respiratory: denies: No Symptoms, Cough, Exercise Intolerance, Hemoptysis, Orthopnea, PND, Snoring, SOB, SOB on Exertion, Wheezing, Other Genitourinary: denies: No Symptoms, Burning, Discharge, Dysuria, Flank Pain, Frequency, Hematuria, Incontinence, Lesions, Menses, Pain, Testicular Mass, Testicular Pain, Testicular Swelling, Urgency, Vaginal Bleeding, Other Breasts: denies: No Symptoms Reported, See HPI, Breast Implants, Discharge from Nipple, Lumps, Pain, Skin Changes, Other Musculoskeletal: reports: Extremity Pain Integumentary: reports: Erythema, Lesions, Rash Neurological: denies: No Symptoms, Change in LOC, Change in Speech, Confusion, Dizziness, Headache, Incoordination, Numbness, Parasthesia, Pre-Existing Deficit , Seizure, Syncope, Tremors, Unsteady Gait, Weakness, Other Endocrine: denies: No Symptoms, Excessive Sweating, Flushing, Increased Hunger, Increased Thirst, Intolerance to Cold, Intolerance to Heat, Unexplained Weight Gain, Unexplained Weight Loss, Other Hematology/Lymphatic: denies: No Symptoms, Easily Bruised, Excessive Bleeding, Swollen Glands, Other Psychiatric: denies: No Symptoms, Altered Sleep Pattern, Anxiety, Depression, Hallucinations, Panic, Paranoia, Suicidal, Other Nephrology Consult - Height Height: 5 ft 5 in - Weight Weight: 250 lb - BMI Body Mass Index (BMI): 41.5 - Lab Results CBC,BMP: CBC, BMP 02/10/17 06:30 02/10/17 06:30 Anion Gap: Anion Gap Anion Gap 15 (8-16) 02/10/17 06:30 - Physical Examination Vital Signs: Vital Signs Temperature 99.3 F 02/10/17 17:09 Pulse Rate 97 H 02/10/17 17:09 Respiratory Rate 20 02/10/17 17:09 Blood Pressure 98/41 02/10/17 17:09 O2 Sat by Pulse Oximetry (%) 97 02/10/17 09:00 Constitutional: Yes: Obese Eyes: Yes: WNL, Conjunctiva Clear, EOM Intact HENT: Yes: WNL, Atraumatic, Normocephalic Neck: Yes: WNL, Supple, Trachea Midline Cardiovascular: Yes: WNL, Regular Rate and Rhythm Respiratory: Yes: WNL, Regular, CTA Bilaterally Gastrointestinal: Yes: WNL, Normal Bowel Sounds Renal/: Yes: WNL Musculoskeletal: Yes: Muscle Pain, Muscle Weakness Extremities: Yes: Erythema Edema: Yes Edema: LLE: 3+, RLE: 3+ Peripheral Pulses WNL: Yes Integumentary: Yes: Erythema, Rash, Venous Stasis Changes Neurological: Yes: Alert, Oriented Psychiatric: Yes: WNL Assessment/Plan cellulitis sepsis baldo on chronic kidney disease lymphedema Plan- add ivf 1/2 ns ( she had normal lv function and lvef last year)
[2017-02-10] MEDS: CLINDAMYCIN 900 MG PREMIX IVPB 50 ML IVPB SCH (18:26)
[2017-02-10] MEDS: MEROPENEM 1 GM in DEXTROSE 5%-WATER 100 ML IVPB SCH (21:32)
[2017-02-10] MEDS: INSULIN DETEMIR 100 UNITS/ML MDV SQ SCH (21:38)
[2017-02-10] MEDS ORDERED: INSULIN (NOVOLOG) ASPART 100 UNITS/ML 10ML VIAL ONE (21:38)
[2017-02-11] MEDS: CLINDAMYCIN 900 MG PREMIX IVPB 50 ML IVPB SCH ×3 (01:30→17:19)
[2017-02-11] MEDS: INSULIN SLIDING SCALE (NOVOLOG) 1 VIAL SQ SCH ×4 (06:40→21:52)
[2017-02-11 07:27] LABS: MCH 27.3 pg (25.7-33.7); MCHC 32.2 g/dl (32.0-36.0); MEAN CELL VOLUME 84.9 fl (80-96); MEAN PLT VOLUME 9.5 fl (7.5-11.1); PLATELET COUNT 342 K/MM3 (134-434); RDW 15.6 % (11.6-15.6); WHITE BLOOD COUNT 29.7 K/mm3 (4.0-10.0)
[2017-02-11 07:55] LABS: ALBUMIN 1.9 g/dl (3.4-5.0); ALK PHOS 131 U/L (45-117); ANION GAP 15 (8-16); BILIRUBIN,TOTAL 0.7 mg/dL (0.2-1.0); CO2 17 mmol/L (21-32); CREATININE 3.1 mg/dL (0.55-1.02); GLUCOSE,RANDOM 233 mg/dL (74-106); SGOT/AST 13 U/L (15-37); SGPT/ALT 22 U/L (12-78); TOT PROT 5.3 g/dl (6.4-8.2)
[2017-02-11] MEDS ORDERED: VANCOMYCIN 1,000 MG in DEXTROSE 5%-WATER - 250 ML IVPB SCH (10:00)
[2017-02-11] MEDS: HEPARIN NA (PORCINE) 5,000 UNITS/ML 1ML VIAL SQ SCH ×2 (10:11→21:15)
[2017-02-11] MEDS ORDERED: VANCOMYCIN 1 GRAM (PRE-DOCKED) 250 ML IVPB SCH (10:11)
[2017-02-11] MEDS: PANTOPRAZOLE 40 MG TABLET (FP) PO SCH (10:12)
[2017-02-11] MEDS: BACITRACIN 15 GM TUBE TOPICAL OINTMENT TP SCH ×2 (10:12→21:15)
[2017-02-11] MEDS: SILVER SULFADIAZINE 1% TOP CREAM 50 GM JAR TP SCH (10:17)
[2017-02-11] MEDS: NYSTATIN POWDER 100,000 UNITS/GM - 15 GM TOPICAL POWDER TP SCH (10:17)
[2017-02-11] MEDS ORDERED: PT OWN MED DRAWER 7, Y5N ONE (10:17)
[2017-02-11] MEDS: BUDESONIDE/FORMETEROL FUMARATE 80/4.5 mcg INHALER IH SCH ×2 (10:18→21:52)
[2017-02-11] MEDS: MEROPENEM 1 GM in DEXTROSE 5%-WATER 100 ML IVPB SCH ×2 (11:38→21:14)
[2017-02-11] MEDS: oxyCODONE HCL 5 MG TABLET PO PRN ×2 (11:40→21:15)
[2017-02-11] MEDS ORDERED: INSULIN (NOVOLOG) ASPART 100 UNITS/ML 10ML VIAL ONE (12:36)
--- NOTE | 2017-02-11 13:45 | HOSP ---
Physical Examination Vital Signs: Vital Signs Temperature 99.7 F H 02/11/17 07:16 Pulse Rate 85 02/11/17 07:16 Respiratory Rate 20 02/11/17 07:16 Blood Pressure 104/56 02/11/17 07:16 O2 Sat by Pulse Oximetry (%) 97 02/10/17 21:00 Labs: CBC, BMP 02/11/17 06:00 02/11/17 06:00 Hospitalist Encounter Assessment: I was paged by the nurse to evaluate , due to chest pain and congestion. is a 51 year old female, with significant past medical history of DM , chronic lower extremity cellulitis, and gastritis, on Meropenem, vanco, clindamycin, basitracin. Deven Maxwell Primary care physician was contacted by the nurse . EKG and trop was ordered. EKG shows normal sinus rhythm with no St,T wave changes.. will follow trop markers results. Patient reports no chest pain to me. she reports difficulty swallowing and feeling congestion in her chest, she also complains of productive cough of white phlegm. She denies any chills, N/V/D/C. she dens any palpitation, shortness of breath. 02/09/2017 venous sonogram: R/O DVT , CXR :no acute pathology Physical exam: Vital Signs Period Temp Pulse Resp BP Sys/Callahan Pulse Ox Last 24 Hr 99.3 F-101.7 F 85-97 20-22 95-119/41-64 97 General : patient is sitting in her bed in mild distress. head: NC/AT Lung: CTA bilaterally Heart : distant heart sounds . Abdmoen: Obese , non distended non tender. Legs : B/L LE cellulitis, L>R, LLE infected ulcers, erthyma, weeping edema. Will follow the trop markers to r/o CT . if symptoms did not improve will consider CTA to R/o PE. Visit type - Emergency Visit Emergency Visit: No - New Patient This patient is new to me today: Yes Date on this admission: 02/11/17 - Critical Care Critical Care patient: No
--- NOTE | 2017-02-11 14:03 | PN ---
Progress Note, Physician History of Present Illness: Pt seen and examined at bedside. She is awake and alert. She complains of discomfort from her left leg. - Current Medication List Current Medications: Active Medications Acetaminophen (Tylenol -) 650 mg PO Q6H PRN PRN Reason: FEVER OR PAIN Last Admin: 02/10/17 21:55 Dose: 650 mg Albuterol/Ipratropium (Duoneb -) 1 amp NEB Q6H PRN PRN Reason: SHORTNESS OF BREATH Bacitracin (Bacitracin -) 1 applic TP BID [facility] Last Admin: 02/11/17 10:12 Dose: 1 applic Budesonide/Formoterol Fumarate (Symbicort 80/4.5mcg -) 2 puff IH BID LANCE Last Admin: 02/11/17 10:18 Dose: 2 puff Heparin Sodium (Porcine) (Heparin -) 5,000 unit SQ BID LANCE Last Admin: 02/11/17 10:11 Dose: 5,000 unit Clindamycin Phosphate (Cleocin 900 Mg Premix Ivpb -) 50 mls @ 100 mls/hr IVPB Q8H-IV LANCE Last Admin: 02/11/17 10:11 Dose: 100 mls/hr Meropenem 1 gm/ Dextrose 100 mls @ 200 mls/hr IVPB BID LANCE PRN Reason: Protocol Last Admin: 02/11/17 11:38 Dose: 200 mls/hr Sodium Chloride (1/2 Normal Saline) 1,000 mls @ 75 mls/hr IV ASDIR LANCE Last Admin: 02/10/17 18:26 Dose: 75 mls/hr Vancomycin HCl (Vancomycin (Pre-Docked)) 250 mls @ 166.667 mls/hr IVPB DAILY@ 1200 LANCE PRN Reason: Protocol Last Admin: 02/11/17 12:58 Dose: 166.667 mls/hr Insulin Aspart (Novolog Vial Sliding Scale -) 1 vial SQ ACHS LANCE PRN Reason: Protocol Last Admin: 02/11/17 12:45 Dose: 4 unit Insulin Detemir (Levemir Vial) 10 units SQ HS ALNCE Last Admin: 02/10/17 21:38 Dose: 10 unit Nystatin (Nystop Powder -) 1 applic TP DAILY [facility] Last Admin: 02/11/17 10:17 Dose: 1 applic Oxycodone HCl (Roxicodone -) 10 mg PO Q6H PRN PRN Reason: PAIN Last Admin: 02/11/17 11:40 Dose: 10 mg Pantoprazole Sodium (Protonix -) 40 mg PO DAILY LANCE Last Admin: 02/11/17 10:12 Dose: 40 mg Silver Sulfadiazine (Silvadene -) 1 applic TP DAILY LANCE Last Admin: 02/11/17 10:17 Dose: 1 applic - Objective Vital Signs: Vital Signs Temperature 99.7 F H 02/11/17 07:16 Pulse Rate 85 02/11/17 07:16 Respiratory Rate 20 02/11/17 07:16 Blood Pressure 104/56 02/11/17 07:16 O2 Sat by Pulse Oximetry (%) 97 02/10/17 21:00 Constitutional: Yes: Calm Eyes: Yes: Conjunctiva Clear HENT: Yes: Atraumatic Cardiovascular: Yes: S1, S2 Respiratory: Yes: Rhonchi Gastrointestinal: Yes: Soft, Abdomen, Obese Genitourinary: Yes: WNL Musculoskeletal: Yes: WNL Edema: Yes Edema: LLE: 1+, RLE: 1+ Integumentary: Yes: Erythema Neurological: Yes: Oriented Psychiatric: Yes: Oriented Labs: CBC, BMP 02/11/17 06:00 02/11/17 06:00 - ....Imaging Chest X-ray: Report Reviewed Problem List - Problems (1) Cellulitis Code(s): L03.90 - CELLULITIS, UNSPECIFIED Qualifiers: Site of cellulitis of extremity: lower extremity Laterality: right (2) Fever Code(s): R50.9 - FEVER, UNSPECIFIED (3) Obesity Code(s): E66.9 - OBESITY, UNSPECIFIED Qualifiers: Obesity type: due to excess calories Body mass index: BMI 50.0-59.9 (4) Sepsis Code(s): A41.9 - SEPSIS, UNSPECIFIED ORGANISM Qualifiers: Sepsis type: sepsis due to unspecified organism Qualified Code(s): A41.9 - Sepsis, unspecified organism (5) NOVA (acute kidney injury) Code(s): N17.9 - ACUTE KIDNEY FAILURE, UNSPECIFIED Assessment/Plan Current Medications Generic Name Dose Route Start Last Admin Trade Name Freq PRN Reason Stop Dose Admin Acetaminophen 650 mg 02/09/17 19:38 02/10/17 21:55 Tylenol - PO 650 mg Q6H PRN Administration FEVER OR PAIN Albuterol/Ipratropium 1 amp 02/09/17 19:38 Duoneb - NEB Q6H PRN SHORTNESS OF BREATH Bacitracin 1 applic 02/09/17 22:00 02/11/17 10:12 Bacitracin - TP 1 applic BID LANCE Administration Budesonide/Formoterol Fumarate 2 puff 02/10/17 11:45 02/11/17 10:18 Symbicort 80/4.5mcg - IH 2 puff BID LANCE Administration Heparin Sodium (Porcine) 5,000 unit 02/09/17 22:00 02/11/17 10:11 Heparin - SQ 5,000 unit BID LANCE Administration Clindamycin Phosphate 50 mls @ 100 mls/hr 02/10/17 18:00 02/11/17 10:11 Cleocin 900 Mg Premix Ivpb - IVPB 100 mls/hr Q8H-IV LANCE Administration Meropenem 1 gm/ Dextrose 100 mls @ 200 mls/hr 02/10/17 22:00 02/11/17 11:38 IVPB 200 mls/hr BID LANCE Administration Protocol Sodium Chloride 1,000 mls @ 75 mls/hr 02/10/17 15:45 02/10/17 18:26 1/2 Normal Saline IV 75 mls/hr ASDIR LANCE Administration Vancomycin HCl 250 mls @ 166.667 mls/hr 02/11/17 10:11 02/11/17 12:58 Vancomycin (Pre-Docked) IVPB 166.667 mls/hr DAILY@1200 LANCE Administration Protocol Insulin Aspart 1 vial 02/09/17 22:00 02/11/17 12:45 Novolog Vial Sliding Scale - SQ 4 unit ACHS LANCE Administration Protocol Insulin Detemir 10 units 02/09/17 22:00 02/10/17 21:38 Levemir Vial SQ 10 unit HS LANCE Administration Nystatin 1 applic 02/10/17 10:00 02/11/17 10:17 Nystop Powder - TP 1 applic DAILY LANCE Administration Oxycodone HCl 10 mg 02/09/17 19:38 02/11/17 11:40 Roxicodone - PO 10 mg Q6H PRN Administration PAIN Pantoprazole Sodium 40 mg 02/10/17 10:00 02/11/17 10:12 Protonix - PO 40 mg DAILY LANCE Administration Silver Sulfadiazine 1 applic 02/10/17 12:00 02/11/17 10:17 Silvadene - TP 1 applic DAILY LANCE Administration Impression 1. NOVA with worsening creatinine 2. sepsis 3. cellulitis 4. DM Plan - get ultrasound kidneys and bladder - get UA with lytes and creatinine - repeat cxr as she had congestion on her initial cxr - check vanco level - will follow Dr Epstein
[2017-02-11 14:04] LABS: CPK 370 IU/L (26-192); TROPONIN I < 0.02 ng/ml (0.00-0.05)
--- NOTE | 2017-02-11 14:31 | CONSULT ---
Consult Consult Specialty:: PULMONARY/CCM Referred by:: Dr. Epstein Reason for Consultation:: sepsis - History of Present Illness Chief Complaint: leg swelling History of Present Illness: 51yo female with h/o DM, asthma, morbid obesity, lymphedema who was admitted with worsening leg pain, erythema. Reports subjective fevers with rigors. Temp was 103 on admission, currently tachypneic but denies shortness of breath. Has been hyperglycemic with elevated lactate and worsening renal failure. Pt poor historian due to clinical condition. - History Source History Provided By: Patient, Medical Record Limitations to Obtaining History: Clinical Condition - Past Medical History Pulmonary: Yes: Asthma Gastrointestinal: Yes: Other (gallstones) Infectious Disease: Yes: Other (LE cellulitis) Psych: Yes: Bipolar Endocrine: Yes: Diabetes Mellitus Dermatology: Yes: Cellulitis (b/l LE with ulcerations) - Alcohol/Substance Use Hx Alcohol Use: No History of Substance Use: reports: Prescription (narcotics) - Smoking History Smoking history: Never smoked Have you smoked in the past 12 months: No Aproximately how many cigarettes per day: 0 Home Medications - Allergies Allergies/Adverse Reactions: Allergies Allergy/AdvReac Type Severity Reaction Status Date / Time nut - unspecified Allergy Verified 02/09/17 16:36 Penicillins Allergy Verified 02/09/17 16:36 - Home Medications Home Medications: Ambulatory Orders Insulin Sliding Scale [Novolog Vial Sliding Scale -] See Protocol SQ ACHS #7 pen 09/19/15 Albuterol Sulfate Inhaler - [Ventolin HFA Inhaler -] 1 - 2 inh PO Q4H #1 inhaler 10/09/15 Insulin Detemir [Levemir Flextouch] 5 unit SQ HS #0 10/09/15 Oxycodone HCl [Roxicodone -] 5 mg PO Q6H PRN #10 tablet MDD 4 10/09/15 Pantoprazole Sodium [Protonix -] 40 mg PO BID #60 tablet.ec 10/09/15 Clindamycin [Cleocin -] 300 mg PO BID 10/20/15 Gabapentin 0 mg PO DAILY 02/09/17 Multivitamin [Poly-Vitamin] 1 each PO DAILY 02/09/17 Family Disease History - Family Disease History Family Disease History: Other: Brother (stomach cancer), Sister (breast cancer) Review of Systems - Review of Systems Constitutional: reports: Chills, Fever, Weakness Eyes: denies: Recent Change in Vision HENT: denies: Nasal Congestion, Throat Pain Neck: denies: Stiffness, Tenderness Cardiovascular: reports: Edema, Shortness of Breath. denies: Chest Pain, Palpitations Respiratory: denies: Cough, Hemoptysis Gastrointestinal: denies: Abdominal Pain, Nausea, Vomiting Genitourinary: denies: Dysuria, Hematuria Integumentary: reports: Erythema Neurological: denies: Dizziness, Headache Physical Exam Vital Signs: Vital Signs Temperature 99.7 F H 02/11/17 07:16 Pulse Rate 85 02/11/17 07:16 Respiratory Rate 20 02/11/17 07:16 Blood Pressure 104/56 02/11/17 07:16 O2 Sat by Pulse Oximetry (%) 97 02/10/17 21:00 Constitutional: Yes: Moderate Distress Eyes: Yes: Conjunctiva Clear, EOM Intact HENT: Yes: Atraumatic, Normocephalic Neck: Yes: Supple, Trachea Midline Cardiovascular: Yes: Regular Rate and Rhythm Respiratory: Yes: Diminished (distant breath sounds) Gastrointestinal: Yes: Normal Bowel Sounds, Soft, Abdomen, Obese. No: Tenderness Extremities: Yes: Erythema Edema: Yes Neurological: Yes: Alert, Oriented Labs: CBC, BMP 02/11/17 06:00 02/11/17 06:00 Imaging - Results Chest X-ray: Report Reviewed, Image Reviewed Problem List - Problems (1) Cellulitis Code(s): L03.90 - CELLULITIS, UNSPECIFIED Qualifiers: Site of cellulitis of extremity: lower extremity Laterality: right (2) Severe sepsis Code(s): A41.9 - SEPSIS, UNSPECIFIED ORGANISM R65.20 - SEVERE SEPSIS WITHOUT SEPTIC SHOCK (3) NOVA (acute kidney injury) Code(s): N17.9 - ACUTE KIDNEY FAILURE, UNSPECIFIED (4) Lactic acidosis Code(s): E87.2 - ACIDOSIS (5) Morbid obesity Code(s): E66.01 - MORBID (SEVERE) OBESITY DUE TO EXCESS CALORIES (6) DM2 (diabetes mellitus, type 2) Code(s): E11.9 - TYPE 2 DIABETES MELLITUS WITHOUT COMPLICATIONS Qualifiers: Diabetes mellitus complication detail: with other circulatory complications Assessment/Plan Cellulitis Severe Sepsis Acute Kidney Injury Lactic Acidosis Morbid Obesity Uncontrolled Diabetes - IV antibiotics - f/u cultures - IVF - urine lytes, creatinine - bladder/renal ultrasound - monitor urine output, creatinine - trend lactate - check ABG - O2 to keep SpO2 >90% - may need BiPAP to assist in work of breathing - glucose control - transfer to ICU for closer monitoring of worsening sepsis Thank you for this consult Jarrod Kang MD
--- NOTE | 2017-02-11 14:51 | PN ---
Progress Note, Physician History of Present Illness: events noted patient more septic awake and alert in icu - Current Medication List Current Medications: Active Medications Acetaminophen (Tylenol -) 650 mg PO Q6H PRN PRN Reason: FEVER OR PAIN Last Admin: 02/10/17 21:55 Dose: 650 mg Albuterol/Ipratropium (Duoneb -) 1 amp NEB Q6H PRN PRN Reason: SHORTNESS OF BREATH Bacitracin (Bacitracin -) 1 applic TP BID [facility] Last Admin: 02/11/17 10:12 Dose: 1 applic Budesonide/Formoterol Fumarate (Symbicort 80/4.5mcg -) 2 puff IH BID LANCE Last Admin: 02/11/17 10:18 Dose: 2 puff Heparin Sodium (Porcine) (Heparin -) 5,000 unit SQ BID LANCE Last Admin: 02/11/17 10:11 Dose: 5,000 unit Clindamycin Phosphate (Cleocin 900 Mg Premix Ivpb -) 50 mls @ 100 mls/hr IVPB Q8H-IV LANCE Last Admin: 02/11/17 10:11 Dose: 100 mls/hr Meropenem 1 gm/ Dextrose 100 mls @ 200 mls/hr IVPB BID LANCE PRN Reason: Protocol Last Admin: 02/11/17 11:38 Dose: 200 mls/hr Sodium Chloride (1/2 Normal Saline) 1,000 mls @ 75 mls/hr IV ASDIR LANCE Last Admin: 02/10/17 18:26 Dose: 75 mls/hr Vancomycin HCl (Vancomycin (Pre-Docked)) 250 mls @ 166.667 mls/hr IVPB DAILY@ 1200 LANCE PRN Reason: Protocol Last Admin: 02/11/17 12:58 Dose: 166.667 mls/hr Insulin Aspart (Novolog Vial Sliding Scale -) 1 vial SQ ACHS LANCE PRN Reason: Protocol Last Admin: 02/11/17 12:45 Dose: 4 unit Insulin Detemir (Levemir Vial) 10 units SQ HS LANCE Last Admin: 02/10/17 21:38 Dose: 10 unit Nystatin (Nystop Powder -) 1 applic TP DAILY [facility] Last Admin: 02/11/17 10:17 Dose: 1 applic Oxycodone HCl (Roxicodone -) 10 mg PO Q6H PRN PRN Reason: PAIN Last Admin: 02/11/17 11:40 Dose: 10 mg Pantoprazole Sodium (Protonix -) 40 mg PO DAILY LANCE Last Admin: 02/11/17 10:12 Dose: 40 mg Silver Sulfadiazine (Silvadene -) 1 applic TP DAILY [facility] Last Admin: 02/11/17 10:17 Dose: 1 applic - Objective Vital Signs: Vital Signs Temperature 99.7 F H 02/11/17 07:16 Pulse Rate 85 02/11/17 07:16 Respiratory Rate 20 02/11/17 07:16 Blood Pressure 104/56 02/11/17 07:16 O2 Sat by Pulse Oximetry (%) 97 02/10/17 21:00 Constitutional: Yes: Calm, Mild Distress, Obese (morbid) Eyes: Yes: Conjunctiva Clear Cardiovascular: Yes: Regular Rate and Rhythm Respiratory: Yes: Regular, CTA Bilaterally Gastrointestinal: Yes: Normal Bowel Sounds, Soft Musculoskeletal: Yes: Other Extremities: Yes: Other Integumentary: Yes: Other (cellulitis with blebs present on both legs dresing present now) Wound/Incision: Yes: Dressing Dry and Intact Neurological: Yes: Alert Labs: CBC, BMP 02/11/17 06:00 02/11/17 06:00 - ....Imaging Cat Scan: Report Reviewed, Image Reviewed Assessment/Plan Problem List - Problems (1) Asthma Code(s): J45.909 - UNSPECIFIED ASTHMA, UNCOMPLICATED Qualifiers: Asthma severity: mild intermittent (2) Cellulitis Code(s): L03.90 - CELLULITIS, UNSPECIFIED Qualifiers: Site of cellulitis of extremity: lower extremity Laterality: right (3) Obesity Code(s): E66.9 - OBESITY, UNSPECIFIED Qualifiers: Obesity type: due to excess calories Body mass index: BMI 50.0-59.9 (4) Acute renal failure Code(s): N17.9 - ACUTE KIDNEY FAILURE, UNSPECIFIED (5) Chronic cellulitis Code(s): L03.90 - CELLULITIS, UNSPECIFIED (6) DM2 (diabetes mellitus, type 2) Code(s): E11.9 - TYPE 2 DIABETES MELLITUS WITHOUT COMPLICATIONS Qualifiers: Diabetes mellitus complication detail: with other circulatory complications (7) Leukocytosis Code(s): D72.829 - ELEVATED WHITE BLOOD CELL COUNT, UNSPECIFIED (8) Sepsis Code(s): A41.9 - SEPSIS, UNSPECIFIED ORGANISM Qualifiers: Sepsis type: sepsis due to unspecified organism Qualified Code(s): A41.9 - Sepsis, unspecified organism (9) Fever Code(s): R50.9 - FEVER, UNSPECIFIED plan close watch on the patient continue current abx adjust accordingly meds watch for fevers wbc improving very close watch cc time 40 min
[2017-02-11] MEDS ORDERED: guaiFENesin/CODEINE 5 ML UNIT-DOSE CUPS PO PRN (15:29)
--- NOTE | 2017-02-11 16:09 | PN ---
Progress Note, Physician Chief Complaint: AWAKE ALERT FEELING WEAK EVENTS REVIEWED CHEST PAIN - Current Medication List Current Medications: Active Medications Acetaminophen (Tylenol -) 650 mg PO Q6H PRN PRN Reason: FEVER OR PAIN Last Admin: 02/10/17 21:55 Dose: 650 mg Albuterol/Ipratropium (Duoneb -) 1 amp NEB Q6H PRN PRN Reason: SHORTNESS OF BREATH Bacitracin (Bacitracin -) 1 applic TP BID [facility] Last Admin: 02/11/17 10:12 Dose: 1 applic Budesonide/Formoterol Fumarate (Symbicort 80/4.5mcg -) 2 puff IH BID LANCE Last Admin: 02/11/17 10:18 Dose: 2 puff Guaifenesin/Codeine Phosphate (Robitussin Ac -) 5 ml PO BID PRN PRN Reason: COUGHING Heparin Sodium (Porcine) (Heparin -) 5,000 unit SQ BID LANCE Last Admin: 02/11/17 10:11 Dose: 5,000 unit Clindamycin Phosphate (Cleocin 900 Mg Premix Ivpb -) 50 mls @ 100 mls/hr IVPB Q8H-IV LANCE Last Admin: 02/11/17 10:11 Dose: 100 mls/hr Meropenem 1 gm/ Dextrose 100 mls @ 200 mls/hr IVPB BID LANCE PRN Reason: Protocol Last Admin: 02/11/17 11:38 Dose: 200 mls/hr Sodium Chloride (1/2 Normal Saline) 1,000 mls @ 75 mls/hr IV ASDIR [facility] Last Admin: 02/10/17 18:26 Dose: 75 mls/hr Vancomycin HCl (Vancomycin (Pre-Docked)) 250 mls @ 166.667 mls/hr IVPB DAILY@ 1200 LANCE PRN Reason: Protocol Last Admin: 02/11/17 12:58 Dose: 166.667 mls/hr Insulin Aspart (Novolog Vial Sliding Scale -) 1 vial SQ ACHS LANCE PRN Reason: Protocol Last Admin: 02/11/17 12:45 Dose: 4 unit Insulin Detemir (Levemir Vial) 10 units SQ HS LANCE Last Admin: 02/10/17 21:38 Dose: 10 unit Nystatin (Nystop Powder -) 1 applic TP DAILY [facility] Last Admin: 02/11/17 10:17 Dose: 1 applic Oxycodone HCl (Roxicodone -) 10 mg PO Q6H PRN PRN Reason: PAIN Last Admin: 02/11/17 11:40 Dose: 10 mg Pantoprazole Sodium (Protonix -) 40 mg PO DAILY [facility] Last Admin: 02/11/17 10:12 Dose: 40 mg Silver Sulfadiazine (Silvadene -) 1 applic TP DAILY [facility] Last Admin: 02/11/17 10:17 Dose: 1 applic - Objective Vital Signs: Vital Signs Temperature 99.9 F H 02/11/17 15:34 Pulse Rate 94 H 02/11/17 15:34 Respiratory Rate 20 02/11/17 15:34 Blood Pressure 95/52 02/11/17 15:34 O2 Sat by Pulse Oximetry (%) 97 02/10/17 21:00 Constitutional: Yes: Mild Distress Eyes: Yes: WNL HENT: Yes: WNL Neck: Yes: WNL Cardiovascular: Yes: WNL Respiratory: Yes: SOB, Wheezes Gastrointestinal: Yes: WNL Genitourinary: Yes: WNL Musculoskeletal: Yes: Muscle Weakness Extremities: Yes: Deformity, Erythema Edema: Yes Peripheral Pulses WNL: Yes Integumentary: Yes: Erythema, Pressure Ulcer, Rash, Skin Tear, Venous Stasis Changes Wound/Incision: Yes: Dressing Dry and Intact, Unapproximated Neurological: Yes: Pre-Existing Deficit ...Motor Strength: LLE, RLE Psychiatric: Yes: Other Labs: CBC, BMP 02/11/17 06:00 02/11/17 06:00 Problem List - Problems (1) Cellulitis Code(s): L03.90 - CELLULITIS, UNSPECIFIED Qualifiers: Site of cellulitis of extremity: lower extremity Laterality: right (2) Allergic reaction Code(s): T78.40XA - ALLERGY, UNSPECIFIED, INITIAL ENCOUNTER (3) DM2 (diabetes mellitus, type 2) Code(s): E11.9 - TYPE 2 DIABETES MELLITUS WITHOUT COMPLICATIONS Qualifiers: Diabetes mellitus complication detail: with other circulatory complications (4) Sleep apnea Code(s): G47.30 - SLEEP APNEA, UNSPECIFIED Qualifiers: Sleep apnea type: idiopathic sleep related nonobstructive alveolar hypoventilation Qualified Code(s): G47.34 - Idiopathic sleep related nonobstructive alveolar hypoventilation (5) Asthma Code(s): J45.909 - UNSPECIFIED ASTHMA, UNCOMPLICATED Qualifiers: Asthma severity: mild intermittent (6) Obesity Code(s): E66.9 - OBESITY, UNSPECIFIED Qualifiers: Obesity type: due to excess calories Body mass index: BMI 50.0-59.9 (7) NOVA (acute kidney injury) Code(s): N17.9 - ACUTE KIDNEY FAILURE, UNSPECIFIED (8) Sepsis affecting skin Code(s): A41.9 - SEPSIS, UNSPECIFIED ORGANISM Assessment/Plan ACUTE RENAL FAILURE IVF ICU ADMISSION IV ABX ADJUST MEDS TO GFR RENAL EVAL CARDIOLOGY EKG NO ACUTE CHANGES PAIN CONTROL WOUND CARE ID F/U
--- NOTE | 2017-02-11 16:34 | EKG ---
Test Reason : Blood Pressure : / mmHG Vent. Rate : 092 BPM Atrial Rate : 092 BPM P-R Int : 152 ms QRS Dur : 084 ms QT Int : 312 ms P-R-T Axes : 010 026 023 degrees QTc Int : 385 ms NORMAL SINUS RHYTHM LOW VOLTAGE QRS NONSPECIFIC T WAVE ABNORMALITY ABNORMAL ECG WHEN COMPARED WITH ECG OF 09-FEB-2017 19:50, NO SIGNIFICANT CHANGE WAS FOUND Confirmed by SATISH ROMERO MD ([id number]) on 02/11/2017 4:34:07 PM Referred By: DARON DHILLON DR Confirmed By:SATISH ROMERO MD
--- NOTE | 2017-02-11 16:36 | EKG ---
Test Reason : Blood Pressure : / mmHG Vent. Rate : 105 BPM Atrial Rate : 105 BPM P-R Int : 164 ms QRS Dur : 084 ms QT Int : 310 ms P-R-T Axes : 076 014 015 degrees QTc Int : 409 ms SINUS TACHYCARDIA BASELINE ARTIFACT ABNORMAL ECG WHEN COMPARED WITH ECG OF 03-OCT-2015 16:17, NO SIGNIFICANT CHANGE WAS FOUND Confirmed by SATISH ROMERO MD ([id number]) on 02/11/2017 4:36:13 PM Referred By: Confirmed By:SATISH ROMERO MD
[2017-02-11] MEDS ORDERED: ALBUTEROL SO4 2.5/IPRATROPIUM 0.5 INH SOL 3 ML VIAL.NEB. NEB PRN (16:42)
[2017-02-11] MEDS: SODIUM CHLORIDE 0.45% 1,000 ML IV SCH (16:56)
[2017-02-11 17:12] LABS: URINE APPEARANCE SLCLOUDY; URINE BILIRUBIN NEGATIVE (NEGATIVE); URINE BLOOD 1+ (NEGATIVE); URINE COLOR YELLOW; URINE GLUCOSE (UA) NEGATIVE (NEGATIVE); URINE KETONE NEGATIVE (NEGATIVE); URINE LEUK ESTERASE TRACE (NEGATIVE); URINE NITRITE NEGATIVE (NEGATIVE); URINE UROBILINOGEN NEGATIVE mg/dL (0.2-1.0)
[2017-02-11 17:15] LABS: URINE PROTEIN 1+ (NEGATIVE)
[2017-02-11 17:18] LABS: URINE MUCUS RARE; URINE RBC 2 /hpf (0-3); URINE WBC 16 /hpf (3-5)
[2017-02-11] MEDS ORDERED: ACETAMINOPHEN 1000 MG/100 ML VIAL (NON FORMULARY) IVPB PRN (20:44)
[2017-02-11] MEDS: ACETAMINOPHEN 325 MG TABLET (FP) PO PRN (21:15)
[2017-02-11 21:25] LABS: URINE APPEARANCE SLCLOUDY; URINE BILIRUBIN NEGATIVE (NEGATIVE); URINE BLOOD 1+ (NEGATIVE); URINE COLOR YELLOW; URINE GLUCOSE (UA) NEGATIVE (NEGATIVE); URINE KETONE NEGATIVE (NEGATIVE); URINE LEUK ESTERASE NEGATIVE (NEGATIVE); URINE NITRITE NEGATIVE (NEGATIVE); URINE UROBILINOGEN NEGATIVE mg/dL (0.2-1.0)
[2017-02-11 21:28] LABS: URINE PROTEIN 1+ (NEGATIVE)
[2017-02-11 21:29] LABS: URINE RBC 5 /hpf (0-3); URINE WBC 7 /hpf (3-5)
[2017-02-11] MEDS: INSULIN DETEMIR 100 UNITS/ML MDV SQ SCH (21:49)
[2017-02-12] MEDS: CLINDAMYCIN 900 MG PREMIX IVPB 50 ML IVPB SCH ×3 (01:42→17:13)
[2017-02-12] MEDS: ACETAMINOPHEN 325 MG TABLET (FP) PO PRN (06:08)
[2017-02-12] MEDS: oxyCODONE HCL 5 MG TABLET PO PRN ×2 (06:08→15:37)
[2017-02-12 06:30] LABS: MCH 27.9 pg (25.7-33.7); MCHC 32.5 g/dl (32.0-36.0); MEAN CELL VOLUME 85.7 fl (80-96); MEAN PLT VOLUME 9.7 fl (7.5-11.1); PLATELET COUNT 380 K/MM3 (134-434); RDW 15.7 % (11.6-15.6); WHITE BLOOD COUNT 22.7 K/mm3 (4.0-10.0)
[2017-02-12] MEDS: INSULIN SLIDING SCALE (NOVOLOG) 1 VIAL SQ SCH ×4 (06:33→21:45)
[2017-02-12 06:44] LABS: INR 1.54 (0.82-1.09); PROTHROMBIN TIME (PATIENT) 17.1 SEC (9.98-11.88)
[2017-02-12 06:47] LABS: ACTIVATED PTT 31.4 SECONDS (26.9-34.4)
[2017-02-12 06:51] LABS: ALBUMIN 1.9 g/dl (3.4-5.0); GLUCOSE,RANDOM 194 mg/dL (74-106); PHOSPHOROUS 5.2 mg/dL (2.5-4.9); SGOT/AST 32 U/L (15-37)
[2017-02-12 06:53] LABS: ALK PHOS 134 U/L (45-117); ANION GAP 14 (8-16); BILIRUBIN,TOTAL 0.5 mg/dL (0.2-1.0); CALCIUM 8.1 mg/dL (8.5-10.1); CO2 20 mmol/L (21-32); CREATININE 2.1 mg/dL (0.55-1.02); MAGNESIUM 2.4 mg/dL (1.8-2.4); SGPT/ALT 32 U/L (12-78); TOT PROT 5.6 g/dl (6.4-8.2)
[2017-02-12 07:39] LABS: ARTERIAL BLD GAS O2 SATURATION 95.9 % (90-98.9); ARTERIAL BLOOD GAS BASE EXCESS -7.4 meq/l (-2-2); ARTERIAL BLOOD GAS HCO3 16.5 meq/L (22-26); ARTERIAL BLOOD GAS PO2 77.7 mmHg (80-100); ARTERIAL BLOOD GAS pH 7.38 (7.35-7.45)
[2017-02-12 07:40] LABS: ALLENS TEST POSITIVE; ART PUNCT SITE RIGHT RADIAL; LPM/O2% 21%; PT. ON O2? NO; TYPE OF O2 ROOM AIR
[2017-02-12] MEDS ORDERED: PT OWN MED DRAWER 7, Y5N ONE ×3 (07:47→21:50)
--- NOTE | 2017-02-12 08:09 | PN ---
Physical Exam: SUBJECTIVE: Patient seen and examined. Rapid afib this morning OBJECTIVE: Vital Signs Period Temp Pulse Resp BP Sys/Callahan Pulse Ox Last 24 Hr 98.5 F-103.1 F 75-125 19-32 91-117/46-73 92-97 Constitutional: Yes: Moderate Distress Eyes: Yes: Conjunctiva Clear, EOM Intact HENT: Yes: Atraumatic, Normocephalic Neck: Yes: Supple, Trachea Midline Cardiovascular: Yes: irregularly irregular Respiratory: Yes: Diminished (distant breath sounds) Gastrointestinal: Yes: Normal Bowel Sounds, Soft, Abdomen, Obese. No: Tenderness Extremities: Yes: Erythema, boils Edema: Yes Neurological: Yes: Alert, Oriented irritable Laboratory Results - last 24 hr 02/11/17 02/11/17 02/11/17 10:59 13:20 17:01 WBC RBC Hgb Hct MCV MCH MCHC RDW Plt Count MPV Neutrophils % Lymphocytes % PT with INR INR PTT (Actin FS) Puncture Site ABG pH ABG pCO2 at Pt Temp ABG pO2 at Pt Temp ABG HCO3 ABG O2 Sat (Measured) ABG O2 Content ABG Base Excess Kwesi Test O2 Delivery Device Oxygen Flow Rate Sodium Potassium Chloride Carbon Dioxide Anion Gap BUN Creatinine Creat Clearance w eGFR POC Glucometer 297 Random Glucose Lactic Acid Calcium Phosphorus Magnesium Total Bilirubin AST ALT Alkaline Phosphatase Creatine Kinase 370 H Creatine Kinase Index 1.2 CK-MB (CK-2) 4.538 H Troponin I < 0.02 Total Protein Albumin Urine Color Urine Appearance Urine pH Ur Specific [place] Urine Protein Urine Glucose (UA) Urine Ketones Urine Blood Urine Nitrite Urine Bilirubin Urine Urobilinogen Urine RBC Urine WBC Ur Epithelial Cells Urine Mucus Ur Random Sodium 9 Ur Random Potassium 27.5 Ur Random Chloride 11 Ur Random Urea Nitrogn Urine Creatinine 02/11/17 02/11/17 02/11/17 17:01 17:01 17:01 WBC RBC Hgb Hct MCV MCH MCHC RDW Plt Count MPV Neutrophils % Lymphocytes % PT with INR INR PTT (Actin FS) Puncture Site ABG pH ABG pCO2 at Pt Temp ABG pO2 at Pt Temp ABG HCO3 ABG O2 Sat (Measured) ABG O2 Content ABG Base Excess Kwesi Test O2 Delivery Device Oxygen Flow Rate Sodium Potassium Chloride Carbon Dioxide Anion Gap BUN Creatinine Creat Clearance w eGFR POC Glucometer Random Glucose Lactic Acid Calcium Phosphorus Magnesium Total Bilirubin AST ALT Alkaline Phosphatase Creatine Kinase Creatine Kinase Index CK-MB (CK-2) Troponin I Total Protein Albumin Urine Color Yellow Urine Appearance Slcloudy Urine pH 6.0 Ur Specific [place] 1.015 Urine Protein 1+ H Urine Glucose (UA) Negative Urine Ketones Negative Urine Blood 1+ H Urine Nitrite Negative Urine Bilirubin Negative Urine Urobilinogen Negative Urine RBC 2 Urine WBC 16 Ur Epithelial Cells Rare Urine Mucus Rare Ur Random Sodium Ur Random Potassium Ur Random Chloride Ur Random Urea Nitrogn 733 Urine Creatinine 112.0 02/11/17 02/12/17 02/12/17 21:00 05:00 05:00 WBC RBC Hgb Hct MCV MCH MCHC RDW Plt Count MPV Neutrophils % Lymphocytes % PT with INR 17.10 H INR 1.54 H PTT (Actin FS) 31.4 Puncture Site ABG pH ABG pCO2 at Pt Temp ABG pO2 at Pt Temp ABG HCO3 ABG O2 Sat (Measured) ABG O2 Content ABG Base Excess Kwesi Test O2 Delivery Device Oxygen Flow Rate Sodium 137 Potassium 4.0 Chloride 103 Carbon Dioxide 20 L Anion Gap 14 BUN 54 H Creatinine 2.1 H D Creat Clearance w eGFR 24.64 POC Glucometer Random Glucose 194 H Lactic Acid Calcium 8.1 L Phosphorus 5.2 H Magnesium 2.4 Total Bilirubin 0.5 D AST 32 D ALT 32 D Alkaline Phosphatase 134 H Creatine Kinase Creatine Kinase Index CK-MB (CK-2) Troponin I Total Protein 5.6 L Albumin 1.9 L Urine Color Yellow Urine Appearance Slcloudy Urine pH 6.0 Ur Specific [place] 1.015 Urine Protein 1+ H Urine Glucose (UA) Negative Urine Ketones Negative Urine Blood 1+ H Urine Nitrite Negative Urine Bilirubin Negative Urine Urobilinogen Negative Urine RBC 5 Urine WBC 7 Ur Epithelial Cells Rare Urine Mucus Ur Random Sodium Ur Random Potassium Ur Random Chloride Ur Random Urea Nitrogn Urine Creatinine 02/12/17 02/12/17 02/12/17 05:00 05:00 07:20 WBC 22.7 H RBC 3.11 L Hgb 8.7 L Hct 26.7 L MCV 85.7 MCH 27.9 MCHC 32.5 RDW 15.7 H Plt Count 380 MPV 9.7 Neutrophils % No Result Required. Lymphocytes % No Result Required. PT with INR INR PTT (Actin FS) Puncture Site Right radial ABG pH 7.38 ABG pCO2 at Pt Temp 28.9 L D ABG pO2 at Pt Temp 77.7 L D ABG HCO3 16.5 L ABG O2 Sat (Measured) 95.9 ABG O2 Content 10.6 L ABG Base Excess -7.4 L Kwesi Test Positive O2 Delivery Device Room air Oxygen Flow Rate 21% Sodium Potassium Chloride Carbon Dioxide Anion Gap BUN Creatinine Creat Clearance w eGFR POC Glucometer Random Glucose Lactic Acid 1.5 Calcium Phosphorus Magnesium Total Bilirubin AST ALT Alkaline Phosphatase Creatine Kinase Creatine Kinase Index CK-MB (CK-2) Troponin I Total Protein Albumin Urine Color Urine Appearance Urine pH Ur Specific [place] Urine Protein Urine Glucose (UA) Urine Ketones Urine Blood Urine Nitrite Urine Bilirubin Urine Urobilinogen Urine RBC Urine WBC Ur Epithelial Cells Urine Mucus Ur Random Sodium Ur Random Potassium Ur Random Chloride Ur Random Urea Nitrogn Urine Creatinine Active Medications Generic Name Dose Route Start Last Admin Trade Name Freq PRN Reason Stop Dose Admin Acetaminophen 650 mg 02/11/17 16:42 02/12/17 06:08 Tylenol - PO 650 mg Q6H PRN Administration FEVER OR PAIN Acetaminophen 1,000 mg 02/11/17 20:44 02/12/17 06:30 Ofirmev Injection - IVPB 02/12/17 14:45 1,000 mg Q6H PRN Administration FEVER OR PAIN Albuterol/Ipratropium 1 amp 02/11/17 16:42 Duoneb - NEB Q6H PRN SHORTNESS OF BREATH Bacitracin 1 applic 02/11/17 22:00 02/11/17 21:15 Bacitracin - TP 1 applic BID LANCE Administration Budesonide/Formoterol Fumarate 2 puff 02/11/17 22:00 02/11/17 21:52 Symbicort 80/4.5mcg - IH 2 puff BID LANCE Administration Guaifenesin/Codeine Phosphate 5 ml 02/11/17 15:29 Robitussin Ac - PO BID PRN COUGHING Heparin Sodium (Porcine) 5,000 unit 02/11/17 22:00 02/11/17 21:15 Heparin - SQ 5,000 unit BID LANCE Administration Clindamycin Phosphate 50 mls @ 100 mls/hr 02/11/17 18:00 02/12/17 01:42 Cleocin 900 Mg Premix Ivpb - IVPB 100 mls/hr Q8H-IV LANCE Administration Meropenem 1 gm/ Dextrose 100 mls @ 200 mls/hr 02/11/17 22:00 02/11/17 21:14 IVPB 200 mls/hr BID LANCE Administration Protocol Sodium Chloride 1,000 mls @ 75 mls/hr 02/11/17 16:42 02/11/17 16:56 1/2 Normal Saline IV 75 mls/hr ASDIR L[facility] Administration Vancomycin HCl 250 mls @ 166.667 mls/hr 02/12/17 12:00 Vancomycin (Pre-Docked) IVPB DAILY@1200 LANCE Protocol Insulin Aspart 1 vial 02/11/17 22:00 02/12/17 06:33 Novolog Vial Sliding Scale - SQ 2 units ACHS LANCE Administration Protocol Insulin Detemir 10 units 02/11/17 22:00 02/11/17 21:49 Levemir Vial SQ 10 units HS LANCE Administration Nystatin 1 applic 02/12/17 10:00 Nystop Powder - TP DAILY [facility] Oxycodone HCl 10 mg 02/11/17 16:42 02/12/17 06:08 Roxicodone - PO 10 mg Q6H PRN Administration PAIN Pantoprazole Sodium 40 mg 02/12/17 10:00 Protonix - PO DAILY [facility] Silver Sulfadiazine 1 applic 02/12/17 10:00 Silvadene - TP DAILY [facility] ASSESSMENT/PLAN: 51yo female with h/o DM, asthma, morbid obesity, lymphedema who was admitted with worsening leg pain, erythema. Reports subjective fevers with rigors. Temp was 103 on admission, currently tachypneic but denies shortness of breath. Has been hyperglycemic with elevated lactate and worsening renal failure. Pt poor historian due to clinical condition. Severe sepsis - IV clindamycin, meropenem and vanco - 1/2 NS fluids - Follow up on cultures Cellulitis - PLaced Wound care consult with Dr. Calderon New onset Atrial fibrillation - f/u Echocardiography - on heparin protocol - IV cardizem NOVA - Monitor urine output, creatinine DM2 - Glucose control Will need to consider CTA to rule out PE in the context of tachycardia and tachypnea O2 to keep SpO2 >90% Visit type - Emergency Visit Emergency Visit: No - New Patient This patient is new to me today: Yes Date on this admission: 02/12/17 - Critical Care Critical Care patient: Yes Total Critical Care Time (in minutes): 30 Critical Care Statement: The care of this patient involved high complexity decision making to prevent further life threatening deterioration of the patient 's condition and/or to evaluate & treat vital organ system(s) failure or risk of failure.
[2017-02-12 09:09] LABS: TOTAL CELLS COUNTED 100
[2017-02-12] MEDS: PANTOPRAZOLE 40 MG TABLET (FP) PO SCH (09:14)
[2017-02-12] MEDS: BUDESONIDE/FORMETEROL FUMARATE 80/4.5 mcg INHALER IH SCH ×2 (09:15→21:47)
[2017-02-12] MEDS: MEROPENEM 1 GM in DEXTROSE 5%-WATER 100 ML IVPB SCH ×2 (09:16→21:50)
[2017-02-12] MEDS: HEPARIN NA (PORCINE) 5,000 UNITS/ML 1ML VIAL SQ SCH (09:16)
[2017-02-12] MEDS: NYSTATIN POWDER 100,000 UNITS/GM - 15 GM TOPICAL POWDER TP SCH (09:17)
[2017-02-12] MEDS: SILVER SULFADIAZINE 1% TOP CREAM 50 GM JAR TP SCH (09:20)
[2017-02-12] MEDS ORDERED: dilTIAZem HCL 50 MG/10 ML - 10 ML VIAL IVPUSH ONE (09:35)
[2017-02-12] MEDS: BACITRACIN 15 GM TUBE TOPICAL OINTMENT TP SCH ×2 (10:57→21:48)
[2017-02-12] MEDS: VANCOMYCIN 1 GRAM (PRE-DOCKED) 250 ML IVPB SCH (12:40)
--- NOTE | 2017-02-12 12:49 | PN ---
Progress Note, Physician History of Present Illness: Pt seen and examined at bedside. She is awake and alert. She has been moved to the ICU for closer monitoring. - Current Medication List Current Medications: Active Medications Acetaminophen (Tylenol -) 650 mg PO Q6H PRN PRN Reason: FEVER OR PAIN Last Admin: 02/12/17 06:08 Dose: 650 mg Acetaminophen (Ofirmev Injection -) 1,000 mg IVPB Q6H PRN PRN Reason: FEVER OR PAIN Stop: 02/12/17 14:45 Last Admin: 02/12/17 06:30 Dose: 1,000 mg Albuterol/Ipratropium (Duoneb -) 1 amp NEB Q6H PRN PRN Reason: SHORTNESS OF BREATH Bacitracin (Bacitracin -) 1 applic TP BID [facility] Last Admin: 02/12/17 10:57 Dose: 1 applic Budesonide/Formoterol Fumarate (Symbicort 80/4.5mcg -) 2 puff IH BID [facility] Last Admin: 02/12/17 09:15 Dose: 2 puff Guaifenesin/Codeine Phosphate (Robitussin Ac -) 5 ml PO BID PRN PRN Reason: COUGHING Heparin Sodium (Porcine) (Heparin -) 5,000 unit SQ BID LANCE Last Admin: 02/12/17 09:16 Dose: 5,000 unit Clindamycin Phosphate (Cleocin 900 Mg Premix Ivpb -) 50 mls @ 100 mls/hr IVPB Q8H-IV LANCE Last Admin: 02/12/17 09:15 Dose: 100 mls/hr Meropenem 1 gm/ Dextrose 100 mls @ 200 mls/hr IVPB BID LANCE PRN Reason: Protocol Last Admin: 02/12/17 09:16 Dose: 200 mls/hr Sodium Chloride (1/2 Normal Saline) 1,000 mls @ 75 mls/hr IV ASDIR [facility] Last Admin: 02/11/17 16:56 Dose: 75 mls/hr Vancomycin HCl (Vancomycin (Pre-Docked)) 250 mls @ 166.667 mls/hr IVPB DAILY@ 1200 LANCE PRN Reason: Protocol Last Admin: 02/12/17 12:40 Dose: 166.667 mls/hr Insulin Aspart (Novolog Vial Sliding Scale -) 1 vial SQ ACHS LANCE PRN Reason: Protocol Last Admin: 02/12/17 11:06 Dose: Not Given Insulin Detemir (Levemir Vial) 10 units SQ HS [facility] Last Admin: 02/11/17 21:49 Dose: 10 units Nystatin (Nystop Powder -) 1 applic TP DAILY [facility] Last Admin: 02/12/17 09:17 Dose: 1 applic Oxycodone HCl (Roxicodone -) 10 mg PO Q6H PRN PRN Reason: PAIN Last Admin: 02/12/17 06:08 Dose: 10 mg Pantoprazole Sodium (Protonix -) 40 mg PO DAILY [facility] Last Admin: 02/12/17 09:14 Dose: 40 mg Silver Sulfadiazine (Silvadene -) 1 applic TP DAILY [facility] Last Admin: 02/12/17 09:20 Dose: 1 applic - Objective Vital Signs: Vital Signs Temperature 98.7 F 02/12/17 10:00 Pulse Rate 121 H 02/12/17 12:00 Respiratory Rate 21 02/12/17 12:00 Blood Pressure 99/69 02/12/17 12:00 O2 Sat by Pulse Oximetry (%) 92 L 02/12/17 09:00 Constitutional: Yes: Calm Eyes: Yes: Conjunctiva Clear HENT: Yes: Atraumatic Neck: Yes: Supple Cardiovascular: Yes: Pulse Irregular, S1, S2 Respiratory: Yes: CTA Bilaterally Gastrointestinal: Yes: Soft, Abdomen, Obese Genitourinary: Yes: Johnson Present Musculoskeletal: Yes: WNL Edema: Yes Edema: LLE: 1+, RLE: 1+ Integumentary: Yes: Erythema, Venous Stasis Changes Wound/Incision: Yes: Draining, Reddened Neurological: Yes: Oriented Psychiatric: Yes: Oriented Labs: CBC, BMP 02/12/17 05:00 02/12/17 05:00 INR, PTT INR 1.54 (0.82-1.09) H 02/12/17 05:00 - ....Imaging Chest X-ray: Report Reviewed Ultrasound: Report Reviewed Problem List - Problems (1) Cellulitis Code(s): L03.90 - CELLULITIS, UNSPECIFIED Qualifiers: Site of cellulitis of extremity: lower extremity Laterality: right (2) Fever Code(s): R50.9 - FEVER, UNSPECIFIED (3) Obesity Code(s): E66.9 - OBESITY, UNSPECIFIED Qualifiers: Obesity type: due to excess calories Body mass index: BMI 50.0-59.9 (4) Sepsis Code(s): A41.9 - SEPSIS, UNSPECIFIED ORGANISM Qualifiers: Sepsis type: sepsis due to unspecified organism Qualified Code(s): A41.9 - Sepsis, unspecified organism (5) NOAV (acute kidney injury) Code(s): N17.9 - ACUTE KIDNEY FAILURE, UNSPECIFIED Assessment/Plan Current Medications Generic Name Dose Route Start Last Admin Trade Name Freq PRN Reason Stop Dose Admin Acetaminophen 650 mg 02/11/17 16:42 02/12/17 06:08 Tylenol - PO 650 mg Q6H PRN Administration FEVER OR PAIN Acetaminophen 1,000 mg 02/11/17 20:44 02/12/17 06:30 Ofirmev Injection - IVPB 02/12/17 14:45 1,000 mg Q6H PRN Administration FEVER OR PAIN Albuterol/Ipratropium 1 amp 02/11/17 16:42 Duoneb - NEB Q6H PRN SHORTNESS OF BREATH Bacitracin 1 applic 02/11/17 22:00 02/12/17 10:57 Bacitracin - TP 1 applic BID LANCE Administration Budesonide/Formoterol Fumarate 2 puff 02/11/17 22:00 02/12/17 09:15 Symbicort 80/4.5mcg - IH 2 puff BID LANCE Administration Guaifenesin/Codeine Phosphate 5 ml 02/11/17 15:29 Robitussin Ac - PO BID PRN COUGHING Heparin Sodium (Porcine) 5,000 unit 02/11/17 22:00 02/12/17 09:16 Heparin - SQ 5,000 unit BID LANCE Administration Clindamycin Phosphate 50 mls @ 100 mls/hr 02/11/17 18:00 02/12/17 09:15 Cleocin 900 Mg Premix Ivpb - IVPB 100 mls/hr Q8H-IV LANCE Administration Meropenem 1 gm/ Dextrose 100 mls @ 200 mls/hr 02/11/17 22:00 02/12/17 09:16 IVPB 200 mls/hr BID LANCE Administration Protocol Sodium Chloride 1,000 mls @ 75 mls/hr 02/11/17 16:42 02/11/17 16:56 1/2 Normal Saline IV 75 mls/hr ASDIR LANCE Administration Vancomycin HCl 250 mls @ 166.667 mls/hr 02/12/17 12:00 02/12/17 12:40 Vancomycin (Pre-Docked) IVPB 166.667 mls/hr DAILY@1200 LANCE Administration Protocol Insulin Aspart 1 vial 02/11/17 22:00 02/12/17 11:06 Novolog Vial Sliding Scale - SQ Not Given ACHS LANCE Protocol Insulin Detemir 10 units 02/11/17 22:00 02/11/17 21:49 Levemir Vial SQ 10 units HS LANCE Administration Nystatin 1 applic 02/12/17 10:00 02/12/17 09:17 Nystop Powder - TP 1 applic DAILY LANCE Administration Oxycodone HCl 10 mg 02/11/17 16:42 02/12/17 06:08 Roxicodone - PO 10 mg Q6H PRN Administration PAIN Pantoprazole Sodium 40 mg 02/12/17 10:00 02/12/17 09:14 Protonix - PO 40 mg DAILY LANCE Administration Silver Sulfadiazine 1 applic 02/12/17 10:00 02/12/17 09:20 Silvadene - TP 1 applic DAILY LANCE Administration Impression 1. NOVA with worsening creatinine 2. sepsis 3. cellulitis 4. DM 5. 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
[2017-02-12] MEDS ORDERED: HEPARIN NA (PORCINE) 5,000 UNITS/ML 1ML VIAL IVPUSH PRN (13:00)
--- NOTE | 2017-02-12 13:36 | CON.CARD ---
Consult Consult Specialty:: cardiology Referred by:: Alissa Reason for Consultation:: Atrial fibrillation - History of Present Illness Chief Complaint: Leg pains History of Present Illness: The patient is a 51 morbidly obese female, we have a history of diabetes, hypertension, asthma, lymphedema, chronic kidney disease, now admitted with fever, cellulitis, and acute on chronic renal failure. The patient is in atrial fibrillation. Denies chest pains, shortness of breath, palpitations. - History Source History Provided By: Patient, Medical Record Limitations to Obtaining History: Poor Historian - Past Medical History TRAFFIC ENGINEER: No: Alzheimer's, CVA, Dementia, Migraine, Multiple Sclerosis, Peripheral Neuropathy, Parkinson's, Seizure, Syncope, TIA, Vertigo, Other Cardio/Vascular: Yes: AFIB. No: Aneurysm, Aortic Insufficiency, Aortic Stenosis , CAD, CHF, Deep Vein Thrombosis, HTN, Hyperlipdemia, TN, Mitral Insufficiency, Mitral Stenosis, Murmur, Pulmonary Hypertension, Other Pulmonary: Yes: Asthma Gastrointestinal: Yes: Other (gallstones) Hepatobiliary: No: Cirrhosis, Cholelithiasis, Cholecystitis, Choledocholithiasis , Hepatitis A, Hepatitis B, Hepatitis C, Other Infectious Disease: Yes: Other (LE cellulitis) Psych: Yes: Bipolar Musculoskeletal: No: Bursitis, Chronic low back pain, Hemiparesis, Hemiplegia, Osteoarthritis, Paraplegia, Other Rheumatology: No: Fibromyalgia, Gout, Lupus, Rheumatoid Arthritis, Sarcoidosis, Vasculitis, Other Endocrine: Yes: Diabetes Mellitus Dermatology: Yes: Cellulitis (b/l LE with ulcerations) - Past Surgical History Past Surgical History: No: None, AAA Repair, AICD, Amputation, Appendectomy, Arthrosocopy, AV Fistula/Graft, Bariatric Surgery, Breast Biopsy, Bypass, CABG, Carotid Endarterectomy, Cataract Removal, Cholecystectomy, Colectomy, Colonoscopy, Colostomy, Craniotomy, , Cystectomy, Hernia Repair, Hysterectomy, Ileal Conduit, Ileosotomy, Joint Replacement, Kidney Transplant, Laminectomy, Liver Transplant, Mastectomy, Nephrectomy, Oopherectomy, Orchiectomy, Permanent Pacemaker, Prostatectomy, Splenectomy, Stent, Thoracotomy , TURP, Tonsillectomy, Tubal Ligation, Upper Endoscopy, Valve Replacement, Vasectomy, Vein Stripping/Ligation - Alcohol/Substance Use Hx Alcohol Use: No History of Substance Use: reports: Prescription (narcotics) - Smoking History Smoking history: Never smoked Have you smoked in the past 12 months: No Aproximately how many cigarettes per day: 0 Home Medications - Allergies Allergies/Adverse Reactions: Allergies Allergy/AdvReac Type Severity Reaction Status Date / Time nut - unspecified Allergy Verified 02/09/17 16:36 Penicillins Allergy Verified 02/09/17 16:36 - Home Medications Home Medications: Ambulatory Orders Insulin Sliding Scale [Novolog Vial Sliding Scale -] See Protocol SQ ACHS #7 pen 09/19/15 Albuterol Sulfate Inhaler - [Ventolin HFA Inhaler -] 1 - 2 inh PO Q4H #1 inhaler 10/09/15 Insulin Detemir [Levemir Flextouch] 5 unit SQ HS #0 10/09/15 Oxycodone HCl [Roxicodone -] 5 mg PO Q6H PRN #10 tablet MDD 4 10/09/15 Pantoprazole Sodium [Protonix -] 40 mg PO BID #60 tablet.ec 10/09/15 Clindamycin [Cleocin -] 300 mg PO BID 10/20/15 Gabapentin 0 mg PO DAILY 02/09/17 Multivitamin [Poly-Vitamin] 1 each PO DAILY 02/09/17 Family Disease History - Family Disease History Family Disease History: Other: Brother (stomach cancer), Sister (breast cancer) Review of Systems - Review of Systems Constitutional: reports: Fever Eyes: reports: No Symptoms HENT: reports: No Symptoms Neck: reports: No Symptoms Cardiovascular: reports: No Symptoms Respiratory: reports: No Symptoms Gastrointestinal: reports: No Symptoms Genitourinary: reports: No Symptoms Breasts: reports: No Symptoms Reported Musculoskeletal: reports: Back Pain Integumentary: reports: Lesions, Wound Neurological: reports: No Symptoms Endocrine: reports: No Symptoms Hematology/Lymphatic: reports: No Symptoms Psychiatric: reports: No Symptoms Vital Signs: Vital Signs Temperature 98.7 F 02/12/17 10:00 Pulse Rate 121 H 02/12/17 12:00 Respiratory Rate 21 02/12/17 12:00 Blood Pressure 99/69 02/12/17 12:00 O2 Sat by Pulse Oximetry (%) 92 L 02/12/17 09:00 Constitutional: Yes: Obese Eyes: Yes: WNL HENT: Yes: WNL Neck: Yes: WNL Respiratory: Yes: WNL Gastrointestinal: Yes: Normal Bowel Sounds, Soft, Abdomen, Obese Renal/: Yes: WNL Cardiovascular: Yes: Pulse Irregular JVD: No Carotid Bruit: No PMI: Non-Displaced Heart Sounds: Yes: S1, S2 Murmur: Yes: Systolic Murmur, Grade 2 Musculoskeletal: Yes: Muscle Pain Extremities: Yes: Other (Wound draped) Peripheral Pulses WNL: No Peripheral Pulses: 1+ Left Femoral, 1+ Right Femoral, 1+ Left Popliteal, 1+ Right Popliteal, 1+ Left Doralis Pedis, 1+ Right Dorsalis Pedis, 2+ Left Carotid , 2+ Right Carotid Integumentary: Yes: WNL Neurological: Yes: WNL ...Motor Strength: WNL Psychiatric: Yes: WNL - Other Data Labs, Other Data: CBC, BMP 02/12/17 05:00 02/12/17 05:00 INR, PTT INR 1.54 (0.82-1.09) H 02/12/17 05:00 Troponin, BNP 02/11/17 13:20 Troponin I < 0.02 Troponin, BNP 02/11/17 13:20 Troponin I < 0.02 Assessment/Plan 51-year-old female who is morbidly obese, presenting with cellulitis and fever, noted to be in atrial fibrillation. Ventricular rates are well controlled. The patient is septic. The blood pressure is borderline/low. Please arrange for an echocardiogram. Start anticoagulation for atrial fibrillation, unless contraindicated in this setting. If ventricular rates become rapid, and blood pressure remains low, consider a digoxin load. The patient is stable from the cardiac standpoint. We'll continue to follow.
[2017-02-12] MEDS: HEPARIN - 25,000 UNIT in SODIUM CHLORIDE 495 ML IV SCH (13:41)
--- NOTE | 2017-02-12 13:54 | PN ---
Teaching Attending Note Name of Resident: Mariano Orozco ATTENDING PHYSICIAN STATEMENT I saw and evaluated the patient. I reviewed the resident's note and discussed the case with the resident. I agree with the resident's findings and plan as documented. SUBJECTIVE: Patient seen and examined in the ICU. Awake and alert. Developed new onset Afib and was started on IV Cardizem. Denies CP but reports having some palpitations. Intake & Output 02/09/17 02/10/17 02/11/17 02/12/17 23:59 23:59 23:59 23:59 Intake Total 750 1850 1660 950 Output Total 250 700 Balance 750 1850 1410 250 Weight 250 lb 250 lb 245 lb 5 oz Last Vital Signs Temp Pulse Resp BP Pulse Ox 98.7 F 121 H 21 99/69 92 L 02/12/17 10:00 02/12/17 12:00 02/12/17 12:00 02/12/17 12:00 02/12/17 09:00 Active Medications Acetaminophen (Tylenol -) 650 mg PO Q6H PRN PRN Reason: FEVER OR PAIN Last Admin: 02/12/17 06:08 Dose: 650 mg Acetaminophen (Ofirmev Injection -) 1,000 mg IVPB Q6H PRN PRN Reason: FEVER OR PAIN Stop: 02/12/17 14:45 Last Admin: 02/12/17 06:30 Dose: 1,000 mg Albuterol/Ipratropium (Duoneb -) 1 amp NEB Q6H PRN PRN Reason: SHORTNESS OF BREATH Bacitracin (Bacitracin -) 1 applic TP BID [facility] Last Admin: 02/12/17 10:57 Dose: 1 applic Budesonide/Formoterol Fumarate (Symbicort 80/4.5mcg -) 2 puff IH BID [facility] Last Admin: 02/12/17 09:15 Dose: 2 puff Guaifenesin/Codeine Phosphate (Robitussin Ac -) 5 ml PO BID PRN PRN Reason: COUGHING Heparin Sodium (Porcine) (Heparin -) 1,000 unit IVPUSH PRN PRN PRN Reason: Heparin Heparin Sodium (Porcine) (Heparin -) 5,000 unit IVPUSH PRN PRN PRN Reason: Heparin Clindamycin Phosphate (Cleocin 900 Mg Premix Ivpb -) 50 mls @ 100 mls/hr IVPB Q8H-IV LANCE Last Admin: 02/12/17 09:15 Dose: 100 mls/hr Meropenem 1 gm/ Dextrose 100 mls @ 200 mls/hr IVPB BID LANCE PRN Reason: Protocol Last Admin: 02/12/17 09:16 Dose: 200 mls/hr Sodium Chloride (1/2 Normal Saline) 1,000 mls @ 75 mls/hr IV ASDIR LANCE Last Admin: 02/11/17 16:56 Dose: 75 mls/hr Vancomycin HCl (Vancomycin (Pre-Docked)) 250 mls @ 166.667 mls/hr IVPB DAILY@ 1200 LANCE PRN Reason: Protocol Last Admin: 02/12/17 12:40 Dose: 166.667 mls/hr Heparin Sodium (Porcine) 25, (000 unit/ Sodium Chloride) 500 mls @ 20 mls/hr IV TITR LANCE; 1,000 UNIT/HR PRN Reason: Protocol Last Admin: 02/12/17 13:41 Dose: 20 mls/hr Insulin Aspart (Novolog Vial Sliding Scale -) 1 vial SQ ACHS LANCE PRN Reason: Protocol Last Admin: 02/12/17 11:06 Dose: Not Given Insulin Detemir (Levemir Vial) 10 units SQ HS [facility] Last Admin: 02/11/17 21:49 Dose: 10 units Nystatin (Nystop Powder -) 1 applic TP DAILY [facility] Last Admin: 02/12/17 09:17 Dose: 1 applic Oxycodone HCl (Roxicodone -) 10 mg PO Q6H PRN PRN Reason: PAIN Last Admin: 02/12/17 06:08 Dose: 10 mg Pantoprazole Sodium (Protonix -) 40 mg PO DAILY [facility] Last Admin: 02/12/17 09:14 Dose: 40 mg Silver Sulfadiazine (Silvadene -) 1 applic TP DAILY [facility] Last Admin: 02/12/17 09:20 Dose: 1 applic Constitutional: Yes: Awake and alert, Mildly tachypneic at rest Eyes: Yes: Conjunctiva Clear, EOM Intact HENT: Yes: Atraumatic, Normocephalic Neck: Yes: Supple, Trachea Midline Cardiovascular: Yes: Regular Rate and Rhythm Respiratory: Yes: Diminished at the bases Gastrointestinal: Yes: Normal Bowel Sounds, Soft, Abdomen, Obese. No: Tenderness Extremities: Yes: Erythema, open blisters Edema: Yes Neurological: Yes: Alert, Oriented Labs: Laboratory Results - last 24 hr 02/11/17 02/11/17 02/11/17 13:20 16:52 17:01 WBC RBC Hgb Hct MCV MCH MCHC RDW Plt Count MPV Total Counted Neutrophils % Neutrophils % (Manual) Lymphocytes % Lymphocytes % (Manual) Monocytes % (Manual) Eosinophils % (Manual) PT with INR INR PTT (Actin FS) Puncture Site ABG pH ABG pCO2 at Pt Temp ABG pO2 at Pt Temp ABG HCO3 ABG O2 Sat (Measured) ABG O2 Content ABG Base Excess Kwesi Test O2 Delivery Device Oxygen Flow Rate Sodium Potassium Chloride Carbon Dioxide Anion Gap BUN Creatinine Creat Clearance w eGFR POC Glucometer 145.69664 Random Glucose Lactic Acid Calcium Phosphorus Magnesium Total Bilirubin AST ALT Alkaline Phosphatase Creatine Kinase 370 H Creatine Kinase Index 1.2 CK-MB (CK-2) 4.538 H Troponin I < 0.02 Total Protein Albumin Urine Color Urine Appearance Urine pH Ur Specific [place] Urine Protein Urine Glucose (UA) Urine Ketones Urine Blood Urine Nitrite Urine Bilirubin Urine Urobilinogen Urine RBC Urine WBC Ur Epithelial Cells Urine Mucus Ur Random Sodium 9 Ur Random Potassium 27.5 Ur Random Chloride 11 Ur Random Urea Nitrogn Urine Creatinine 02/11/17 02/11/17 02/11/17 17:01 17:01 17:01 WBC RBC Hgb Hct MCV MCH MCHC RDW Plt Count MPV Total Counted Neutrophils % Neutrophils % (Manual) Lymphocytes % Lymphocytes % (Manual) Monocytes % (Manual) Eosinophils % (Manual) PT with INR INR PTT (Actin FS) Puncture Site ABG pH ABG pCO2 at Pt Temp ABG pO2 at Pt Temp ABG HCO3 ABG O2 Sat (Measured) ABG O2 Content ABG Base Excess Kwesi Test O2 Delivery Device Oxygen Flow Rate Sodium Potassium Chloride Carbon Dioxide Anion Gap BUN Creatinine Creat Clearance w eGFR POC Glucometer Random Glucose Lactic Acid Calcium Phosphorus Magnesium Total Bilirubin AST ALT Alkaline Phosphatase Creatine Kinase Creatine Kinase Index CK-MB (CK-2) Troponin I Total Protein Albumin Urine Color Yellow Urine Appearance Slcloudy Urine pH 6.0 Ur Specific [place] 1.015 Urine Protein 1+ H Urine Glucose (UA) Negative Urine Ketones Negative Urine Blood 1+ H Urine Nitrite Negative Urine Bilirubin Negative Urine Urobilinogen Negative Urine RBC 2 Urine WBC 16 Ur Epithelial Cells Rare Urine Mucus Rare Ur Random Sodium Ur Random Potassium Ur Random Chloride Ur Random Urea Nitrogn 733 Urine Creatinine 112.0 02/11/17 02/12/17 02/12/17 21:00 05:00 05:00 WBC RBC Hgb Hct MCV MCH MCHC RDW Plt Count MPV Total Counted Neutrophils % Neutrophils % (Manual) Lymphocytes % Lymphocytes % (Manual) Monocytes % (Manual) Eosinophils % (Manual) PT with INR 17.10 H INR 1.54 H PTT (Actin FS) 31.4 Puncture Site ABG pH ABG pCO2 at Pt Temp ABG pO2 at Pt Temp ABG HCO3 ABG O2 Sat (Measured) ABG O2 Content ABG Base Excess Kwesi Test O2 Delivery Device Oxygen Flow Rate Sodium 137 Potassium 4.0 Chloride 103 Carbon Dioxide 20 L Anion Gap 14 BUN 54 H Creatinine 2.1 H D Creat Clearance w eGFR 24.64 POC Glucometer Random Glucose 194 H Lactic Acid Calcium 8.1 L Phosphorus 5.2 H Magnesium 2.4 Total Bilirubin 0.5 D AST 32 D ALT 32 D Alkaline Phosphatase 134 H Creatine Kinase Creatine Kinase Index CK-MB (CK-2) Troponin I Total Protein 5.6 L Albumin 1.9 L Urine Color Yellow Urine Appearance Slcloudy Urine pH 6.0 Ur Specific [place] 1.015 Urine Protein 1+ H Urine Glucose (UA) Negative Urine Ketones Negative Urine Blood 1+ H Urine Nitrite Negative Urine Bilirubin Negative Urine Urobilinogen Negative Urine RBC 5 Urine WBC 7 Ur Epithelial Cells Rare Urine Mucus Ur Random Sodium Ur Random Potassium Ur Random Chloride Ur Random Urea Nitrogn Urine Creatinine 02/12/17 02/12/17 02/12/17 05:00 05:00 05:54 WBC 22.7 H RBC 3.11 L Hgb 8.7 L Hct 26.7 L MCV 85.7 MCH 27.9 MCHC 32.5 RDW 15.7 H Plt Count 380 MPV 9.7 Total Counted 100 Neutrophils % No Result Required. Neutrophils % (Manual) 95 H* D Lymphocytes % No Result Required. Lymphocytes % (Manual) 2 L Monocytes % (Manual) 1 L Eosinophils % (Manual) 2 D PT with INR INR PTT (Actin FS) Puncture Site ABG pH ABG pCO2 at Pt Temp ABG pO2 at Pt Temp ABG HCO3 ABG O2 Sat (Measured) ABG O2 Content ABG Base Excess Kwesi Test O2 Delivery Device Oxygen Flow Rate Sodium Potassium Chloride Carbon Dioxide Anion Gap BUN Creatinine Creat Clearance w eGFR POC Glucometer 215.62888 Random Glucose Lactic Acid 1.5 Calcium Phosphorus Magnesium Total Bilirubin AST ALT Alkaline Phosphatase Creatine Kinase Creatine Kinase Index CK-MB (CK-2) Troponin I Total Protein Albumin Urine Color Urine Appearance Urine pH Ur Specific [place] Urine Protein Urine Glucose (UA) Urine Ketones Urine Blood Urine Nitrite Urine Bilirubin Urine Urobilinogen Urine RBC Urine WBC Ur Epithelial Cells Urine Mucus Ur Random Sodium Ur Random Potassium Ur Random Chloride Ur Random Urea Nitrogn Urine Creatinine 02/12/17 02/12/17 07:20 11:05 WBC RBC Hgb Hct MCV MCH MCHC RDW Plt Count MPV Total Counted Neutrophils % Neutrophils % (Manual) Lymphocytes % Lymphocytes % (Manual) Monocytes % (Manual) Eosinophils % (Manual) PT with INR INR PTT (Actin FS) Puncture Site Right radial ABG pH 7.38 ABG pCO2 at Pt Temp 28.9 L D ABG pO2 at Pt Temp 77.7 L D ABG HCO3 16.5 L ABG O2 Sat (Measured) 95.9 ABG O2 Content 10.6 L ABG Base Excess -7.4 L Kwesi Test Positive O2 Delivery Device Room air Oxygen Flow Rate 21% Sodium Potassium Chloride Carbon Dioxide Anion Gap BUN Creatinine Creat Clearance w eGFR POC Glucometer 158.57718 Random Glucose Lactic Acid Calcium Phosphorus Magnesium Total Bilirubin AST ALT Alkaline Phosphatase Creatine Kinase Creatine Kinase Index CK-MB (CK-2) Troponin I Total Protein Albumin Urine Color Urine Appearance Urine pH Ur Specific [place] Urine Protein Urine Glucose (UA) Urine Ketones Urine Blood Urine Nitrite Urine Bilirubin Urine Urobilinogen Urine RBC Urine WBC Ur Epithelial Cells Urine Mucus Ur Random Sodium Ur Random Potassium Ur Random Chloride Ur Random Urea Nitrogn Urine Creatinine Problem List - Problems (1) Cellulitis Code(s): L03.90 - CELLULITIS, UNSPECIFIED Qualifiers: Site of cellulitis of extremity: lower extremity Laterality: right (2) Severe sepsis Code(s): A41.9 - SEPSIS, UNSPECIFIED ORGANISM R65.20 - SEVERE SEPSIS WITHOUT SEPTIC SHOCK (3) NOVA (acute kidney injury) Code(s): N17.9 - ACUTE KIDNEY FAILURE, UNSPECIFIED (4) Lactic acidosis Code(s): E87.2 - ACIDOSIS (5) Morbid obesity Code(s): E66.01 - MORBID (SEVERE) OBESITY DUE TO EXCESS CALORIES (6) DM2 (diabetes mellitus, type 2) Code(s): E11.9 - TYPE 2 DIABETES MELLITUS WITHOUT COMPLICATIONS Qualifiers: Diabetes mellitus complication detail: with other circulatory complications Assessment/Plan Cellulitis Severe Sepsis Acute Kidney Injury Lactic Acidosis Morbid Obesity Uncontrolled Diabetes (?) OSAS (?) Acute PE IV Cardizem IV Heparin Will need to consider CTA ECHO Follow cultures IVF Monitor urine output, creatinine O2 to keep SpO2 >90% Glucose control Dr Andre Critical care time spent in reviewing chart, evaluating patient and formulating plan - 35 minutes.
--- NOTE | 2017-02-12 15:23 | PN ---
Progress Note, Physician History of Present Illness: events noted patient slightly lethargic though answering questions says very tired went into afib started on cardizem - Current Medication List Current Medications: Active Medications Acetaminophen (Tylenol -) 650 mg PO Q6H PRN PRN Reason: FEVER OR PAIN Last Admin: 02/12/17 06:08 Dose: 650 mg Albuterol/Ipratropium (Duoneb -) 1 amp NEB Q6H PRN PRN Reason: SHORTNESS OF BREATH Bacitracin (Bacitracin -) 1 applic TP BID LANCE Last Admin: 02/12/17 10:57 Dose: 1 applic Budesonide/Formoterol Fumarate (Symbicort 80/4.5mcg -) 2 puff IH BID LANCE Last Admin: 02/12/17 09:15 Dose: 2 puff Guaifenesin/Codeine Phosphate (Robitussin Ac -) 5 ml PO BID PRN PRN Reason: COUGHING Heparin Sodium (Porcine) (Heparin -) 1,000 unit IVPUSH PRN PRN PRN Reason: Heparin Heparin Sodium (Porcine) (Heparin -) 5,000 unit IVPUSH PRN PRN PRN Reason: Heparin Clindamycin Phosphate (Cleocin 900 Mg Premix Ivpb -) 50 mls @ 100 mls/hr IVPB Q8H-IV LANCE Last Admin: 02/12/17 09:15 Dose: 100 mls/hr Meropenem 1 gm/ Dextrose 100 mls @ 200 mls/hr IVPB BID LANCE PRN Reason: Protocol Last Admin: 02/12/17 09:16 Dose: 200 mls/hr Sodium Chloride (1/2 Normal Saline) 1,000 mls @ 75 mls/hr IV ASDIR LANCE Last Admin: 02/11/17 16:56 Dose: 75 mls/hr Vancomycin HCl (Vancomycin (Pre-Docked)) 250 mls @ 166.667 mls/hr IVPB DAILY@ 1200 LANCE PRN Reason: Protocol Last Admin: 02/12/17 12:40 Dose: 166.667 mls/hr Heparin Sodium (Porcine) 25, (000 unit/ Sodium Chloride) 500 mls @ 20 mls/hr IV TITR LANCE; 1,000 UNIT/HR PRN Reason: Protocol Last Admin: 02/12/17 13:41 Dose: 20 mls/hr Insulin Aspart (Novolog Vial Sliding Scale -) 1 vial SQ ACHS LANCE PRN Reason: Protocol Last Admin: 02/12/17 11:06 Dose: Not Given Insulin Detemir (Levemir Vial) 10 units SQ HS [facility] Last Admin: 02/11/17 21:49 Dose: 10 units Nystatin (Nystop Powder -) 1 applic TP DAILY [facility] Last Admin: 02/12/17 09:17 Dose: 1 applic Oxycodone HCl (Roxicodone -) 10 mg PO Q6H PRN PRN Reason: PAIN Last Admin: 02/12/17 06:08 Dose: 10 mg Pantoprazole Sodium (Protonix -) 40 mg PO DAILY [facility] Last Admin: 02/12/17 09:14 Dose: 40 mg Silver Sulfadiazine (Silvadene -) 1 applic TP DAILY [facility] Last Admin: 02/12/17 09:20 Dose: 1 applic - Objective Vital Signs: Vital Signs Temperature 98.2 F 02/12/17 14:00 Pulse Rate 103 H 02/12/17 14:00 Respiratory Rate 26 H 02/12/17 14:00 Blood Pressure 99/59 02/12/17 14:00 O2 Sat by Pulse Oximetry (%) 92 L 02/12/17 09:00 Constitutional: Yes: Obese, Other Eyes: Yes: Conjunctiva Clear Cardiovascular: Yes: Pulse Irregular, S1, S2 Respiratory: Yes: Regular, On Nasal O2 Gastrointestinal: Yes: Normal Bowel Sounds, Soft Musculoskeletal: Yes: Other Extremities: Yes: Other Integumentary: Yes: Erythema, Other (blebs on the legs) Wound/Incision: Yes: Dressing Dry and Intact Neurological: Yes: Alert, Lethargy Psychiatric: Yes: Alert Labs: CBC, BMP 02/12/17 05:00 02/12/17 05:00 INR, PTT INR 1.54 (0.82-1.09) H 02/12/17 05:00 Assessment/Plan Problem List - Problems (1) Asthma Code(s): J45.909 - UNSPECIFIED ASTHMA, UNCOMPLICATED Qualifiers: Asthma severity: mild intermittent (2) Cellulitis Code(s): L03.90 - CELLULITIS, UNSPECIFIED Qualifiers: Site of cellulitis of extremity: lower extremity Laterality: right (3) Obesity Code(s): E66.9 - OBESITY, UNSPECIFIED Qualifiers: Obesity type: due to excess calories Body mass index: BMI 50.0-59.9 (4) Acute renal failure Code(s): N17.9 - ACUTE KIDNEY FAILURE, UNSPECIFIED (5) Chronic cellulitis Code(s): L03.90 - CELLULITIS, UNSPECIFIED (6) DM2 (diabetes mellitus, type 2) Code(s): E11.9 - TYPE 2 DIABETES MELLITUS WITHOUT COMPLICATIONS Qualifiers: Diabetes mellitus complication detail: with other circulatory complications (7) Leukocytosis Code(s): D72.829 - ELEVATED WHITE BLOOD CELL COUNT, UNSPECIFIED (8) Sepsis Code(s): A41.9 - SEPSIS, UNSPECIFIED ORGANISM Qualifiers: Sepsis type: sepsis due to unspecified organism Qualified Code(s): A41.9 - Sepsis, unspecified organism (9) Fever Code(s): R50.9 - FEVER, UNSPECIFIED patient still not out of rest[place] patient still with toxic looking patient leg still erythematous and has blebs present last spike to 101 plan close watch on the patient continue current abx adjust accordingly meds watch for fevers wbc improving very close watch if patient spikes please repeat blood cx cc time 40 min
[2017-02-12] MEDS ORDERED: ACETAMINOPHEN 1000 MG/100 ML VIAL (NON FORMULARY) IVPB ONE (15:31)
[2017-02-12] MEDS ORDERED: INSULIN (NOVOLOG) ASPART 100 UNITS/ML 10ML VIAL ONE ×2 (15:49→15:51)
--- NOTE | 2017-02-12 15:58 | PN ---
Progress Note, Physician Chief Complaint: AWAKE ALERT FEELING BETTER - Current Medication List Current Medications: Active Medications Acetaminophen (Tylenol -) 650 mg PO Q6H PRN PRN Reason: FEVER OR PAIN Last Admin: 02/12/17 06:08 Dose: 650 mg Albuterol/Ipratropium (Duoneb -) 1 amp NEB Q6H PRN PRN Reason: SHORTNESS OF BREATH Bacitracin (Bacitracin -) 1 applic TP BID LANCE Last Admin: 02/12/17 10:57 Dose: 1 applic Budesonide/Formoterol Fumarate (Symbicort 80/4.5mcg -) 2 puff IH BID LANCE Last Admin: 02/12/17 09:15 Dose: 2 puff Guaifenesin/Codeine Phosphate (Robitussin Ac -) 5 ml PO BID PRN PRN Reason: COUGHING Heparin Sodium (Porcine) (Heparin -) 1,000 unit IVPUSH PRN PRN PRN Reason: Heparin Heparin Sodium (Porcine) (Heparin -) 5,000 unit IVPUSH PRN PRN PRN Reason: Heparin Clindamycin Phosphate (Cleocin 900 Mg Premix Ivpb -) 50 mls @ 100 mls/hr IVPB Q8H-IV [facility] Last Admin: 02/12/17 09:15 Dose: 100 mls/hr Meropenem 1 gm/ Dextrose 100 mls @ 200 mls/hr IVPB BID LANCE PRN Reason: Protocol Last Admin: 02/12/17 09:16 Dose: 200 mls/hr Sodium Chloride (1/2 Normal Saline) 1,000 mls @ 75 mls/hr IV ASDIR LANCE Last Admin: 02/11/17 16:56 Dose: 75 mls/hr Vancomycin HCl (Vancomycin (Pre-Docked)) 250 mls @ 166.667 mls/hr IVPB DAILY@ 1200 LANCE PRN Reason: Protocol Last Admin: 02/12/17 12:40 Dose: 166.667 mls/hr Heparin Sodium (Porcine) 25, (000 unit/ Sodium Chloride) 500 mls @ 20 mls/hr IV TITR LANCE; 1,000 UNIT/HR PRN Reason: Protocol Last Admin: 02/12/17 13:41 Dose: 20 mls/hr Insulin Aspart (Novolog Vial Sliding Scale -) 1 vial SQ ACHS [facility] PRN Reason: Protocol Last Admin: 02/12/17 15:45 Dose: 6 units Insulin Detemir (Levemir Vial) 10 units SQ HS [facility] Last Admin: 02/11/17 21:49 Dose: 10 units Nystatin (Nystop Powder -) 1 applic TP DAILY [facility] Last Admin: 02/12/17 09:17 Dose: 1 applic Oxycodone HCl (Roxicodone -) 10 mg PO Q6H PRN PRN Reason: PAIN Last Admin: 02/12/17 15:37 Dose: 10 mg Pantoprazole Sodium (Protonix -) 40 mg PO DAILY [facility] Last Admin: 02/12/17 09:14 Dose: 40 mg Silver Sulfadiazine (Silvadene -) 1 applic TP DAILY [facility] Last Admin: 02/12/17 09:20 Dose: 1 applic - Objective Vital Signs: Vital Signs Temperature 98.2 F 02/12/17 14:00 Pulse Rate 103 H 02/12/17 14:00 Respiratory Rate 26 H 02/12/17 14:00 Blood Pressure 99/59 02/12/17 14:00 O2 Sat by Pulse Oximetry (%) 92 L 02/12/17 09:00 Constitutional: Yes: Mild Distress Eyes: Yes: WNL HENT: Yes: WNL Neck: Yes: WNL Cardiovascular: Yes: WNL Respiratory: Yes: WNL Gastrointestinal: Yes: WNL Genitourinary: Yes: WNL Musculoskeletal: Yes: Muscle Weakness Extremities: Yes: Deformity Edema: Yes Peripheral Pulses WNL: Yes Integumentary: Yes: Erythema, Pressure Ulcer, Rash, Skin Tear, Venous Stasis Changes Wound/Incision: Yes: Draining, Reddened, Excoriated, Unapproximated Neurological: Yes: Other ...Motor Strength: LLE, RLE Psychiatric: Yes: Other Labs: CBC, BMP 02/12/17 05:00 02/12/17 05:00 INR, PTT INR 1.54 (0.82-1.09) H 02/12/17 05:00 Problem List - Problems (1) Cellulitis Code(s): L03.90 - CELLULITIS, UNSPECIFIED Qualifiers: Site of cellulitis of extremity: lower extremity Laterality: right (2) Allergic reaction Code(s): T78.40XA - ALLERGY, UNSPECIFIED, INITIAL ENCOUNTER (3) DM2 (diabetes mellitus, type 2) Code(s): E11.9 - TYPE 2 DIABETES MELLITUS WITHOUT COMPLICATIONS Qualifiers: Diabetes mellitus complication detail: with other circulatory complications (4) Sleep apnea Code(s): G47.30 - SLEEP APNEA, UNSPECIFIED Qualifiers: Sleep apnea type: idiopathic sleep related nonobstructive alveolar hypoventilation Qualified Code(s): G47.34 - Idiopathic sleep related nonobstructive alveolar hypoventilation (5) Asthma Code(s): J45.909 - UNSPECIFIED ASTHMA, UNCOMPLICATED Qualifiers: Asthma severity: mild intermittent (6) Obesity Code(s): E66.9 - OBESITY, UNSPECIFIED Qualifiers: Obesity type: due to excess calories Body mass index: BMI 50.0-59.9 (7) NOVA (acute kidney injury) Code(s): N17.9 - ACUTE KIDNEY FAILURE, UNSPECIFIED (8) Sepsis affecting skin Code(s): A41.9 - SEPSIS, UNSPECIFIED ORGANISM Assessment/Plan I SPOKE TO THE PATIENT AND HER BROTHER BEDSIDE I EXPLAINED SHE NEEDS TO BE COMPLIANT WITH HER MEDICATIONS AND DIET/LIFESTYLE. SHE WILL NEED CLOSE MONITORING, IV ABX WOUND CARE AND WILL TRANSFER FROM HERE TO [facility] FOR REHAB / CONDITIONING/ WOUND CARE... RENAL EVAL APPRECIATED IMPROVING CREATININE
[2017-02-12] MEDS: SODIUM CHLORIDE 0.45% 1,000 ML IV SCH (17:14)
[2017-02-12] MEDS ORDERED: IBUPROFEN 800 MG/8 ML IJ IVPB ONE (19:42)
[2017-02-12 19:43] LABS: MCH 27.7 pg (25.7-33.7); MCHC 32.5 g/dl (32.0-36.0); MEAN CELL VOLUME 85.1 fl (80-96); MEAN PLT VOLUME 9.8 fl (7.5-11.1); PLATELET COUNT 395 K/MM3 (134-434); WHITE BLOOD COUNT 17.1 K/mm3 (4.0-10.0)
--- NOTE | 2017-02-12 20:53 | EKG ---
Test Reason : Blood Pressure : / mmHG Vent. Rate : 103 BPM Atrial Rate : 115 BPM P-R Int : 000 ms QRS Dur : 082 ms QT Int : 336 ms P-R-T Axes : 000 033 019 degrees QTc Int : 440 ms ATRIAL FIBRILLATION WITH RAPID VENTRICULAR RESPONSE ABNORMAL ECG WHEN COMPARED WITH ECG OF 11-FEB-2017 13:20, ATRIAL FIBRILLATION HAS REPLACED SINUS RHYTHM QT HAS LENGTHENED REPEAT EKG IF CLINICALLY INDICATED Confirmed by REGAN WISDOM MD ([id number] on 02/12/2017 8:52:32 PM Referred By: Kena PADILLA Confirmed By:REGAN WISDOM MD
[2017-02-12] MEDS ORDERED: HEMOQUE TEST 1 EACH EACH ONE (21:36)
[2017-02-12] MEDS: INSULIN DETEMIR 100 UNITS/ML MDV SQ SCH (21:45)
[2017-02-12] MEDS: HEPARIN NA (PORCINE) 5,000 UNITS/ML 1ML VIAL IVPUSH PRN (23:00)
[2017-02-13] MEDS: CLINDAMYCIN 900 MG PREMIX IVPB 50 ML IVPB SCH ×3 (01:52→18:10)
[2017-02-13] MEDS: ACETAMINOPHEN 325 MG TABLET (FP) PO PRN ×3 (03:26→23:01)
[2017-02-13] MEDS: oxyCODONE HCL 5 MG TABLET PO PRN ×4 (03:27→22:36)
[2017-02-13] MEDS ORDERED: LACTATED RINGERS SOLUTION 1,000 ML IV STA (04:16)
[2017-02-13] MEDS ORDERED: HEMOQUE TEST 1 EACH EACH ONE (06:24)
[2017-02-13] MEDS: INSULIN SLIDING SCALE (NOVOLOG) 1 VIAL SQ SCH ×4 (06:34→22:35)
[2017-02-13] MEDS ORDERED: SODIUM CHLORIDE 1,000 ML IV STA (06:45)
[2017-02-13 06:58] LABS: MCH 28.3 pg (25.7-33.7); MCHC 33.3 g/dl (32.0-36.0); MEAN CELL VOLUME 84.9 fl (80-96); MEAN PLT VOLUME 9.5 fl (7.5-11.1); PLATELET COUNT 359 K/MM3 (134-434); RDW 15.4 % (11.6-15.6)
[2017-02-13] MEDS ORDERED: PT OWN MED DRAWER 7, Y5N ONE ×3 (08:56→22:17)
[2017-02-13 08:58] LABS: ANION GAP 13 (8-16); CALCIUM 7.6 mg/dL (8.5-10.1); CO2 20 mmol/L (21-32); CREATININE 1.6 mg/dL (0.55-1.02); GLUCOSE,RANDOM 231 mg/dL (74-106); MAGNESIUM 2.2 mg/dL (1.8-2.4); PHOSPHOROUS 4.1 mg/dL (2.5-4.9)
[2017-02-13] MEDS: BUDESONIDE/FORMETEROL FUMARATE 80/4.5 mcg INHALER IH SCH ×2 (09:25→22:36)
[2017-02-13] MEDS: SILVER SULFADIAZINE 1% TOP CREAM 50 GM JAR TP SCH (09:26)
[2017-02-13] MEDS: MEROPENEM 1 GM in DEXTROSE 5%-WATER 100 ML IVPB SCH ×2 (10:00→22:34)
[2017-02-13] MEDS: VANCOMYCIN 1 GRAM (PRE-DOCKED) 250 ML IVPB SCH (11:57)
[2017-02-13] MEDS: NYSTATIN POWDER 100,000 UNITS/GM - 15 GM TOPICAL POWDER TP SCH (11:58)
[2017-02-13] MEDS: PANTOPRAZOLE 40 MG TABLET (FP) PO SCH (11:59)
[2017-02-13] MEDS: BACITRACIN 15 GM TUBE TOPICAL OINTMENT TP SCH ×2 (12:00→22:33)
[2017-02-13] MEDS: HEPARIN NA (PORCINE) 5,000 UNITS/ML 1ML VIAL IVPUSH PRN (12:04)
[2017-02-13] MEDS ORDERED: INSULIN (NOVOLOG) ASPART 100 UNITS/ML 10ML VIAL ONE (12:30)
--- NOTE | 2017-02-13 13:34 | PN ---
Progress Note, Physician Chief Complaint: AWAKE ALERT MILD DISTRESS - Current Medication List Current Medications: Active Medications Acetaminophen (Tylenol -) 650 mg PO Q6H PRN PRN Reason: FEVER OR PAIN Last Admin: 02/13/17 09:23 Dose: 650 mg Albuterol/Ipratropium (Duoneb -) 1 amp NEB Q6H PRN PRN Reason: SHORTNESS OF BREATH Bacitracin (Bacitracin -) 1 applic TP BID [facility] Last Admin: 02/13/17 12:00 Dose: 1 applic Budesonide/Formoterol Fumarate (Symbicort 80/4.5mcg -) 2 puff IH BID [facility] Last Admin: 02/13/17 09:25 Dose: 2 puff Diltiazem HCl (Cardizem -) 30 mg PO QID [facility] Guaifenesin/Codeine Phosphate (Robitussin Ac -) 5 ml PO BID PRN PRN Reason: COUGHING Heparin Sodium (Porcine) (Heparin -) 1,000 unit IVPUSH PRN PRN PRN Reason: Heparin Heparin Sodium (Porcine) (Heparin -) 5,000 unit IVPUSH PRN PRN PRN Reason: Heparin Last Admin: 02/13/17 12:04 Dose: 5,000 unit Clindamycin Phosphate (Cleocin 900 Mg Premix Ivpb -) 50 mls @ 100 mls/hr IVPB Q8H-IV [facility] Last Admin: 02/13/17 09:12 Dose: 100 mls/hr Meropenem 1 gm/ Dextrose 100 mls @ 200 mls/hr IVPB BID LANCE PRN Reason: Protocol Last Admin: 02/13/17 10:00 Dose: 200 mls/hr Sodium Chloride (1/2 Normal Saline) 1,000 mls @ 75 mls/hr IV ASDIR [facility] Last Admin: 02/12/17 17:14 Dose: 75 mls/hr Vancomycin HCl (Vancomycin (Pre-Docked)) 250 mls @ 166.667 mls/hr IVPB DAILY@ 1200 LANCE PRN Reason: Protocol Last Admin: 02/13/17 11:57 Dose: 166.667 mls/hr Heparin Sodium (Porcine) 25, (000 unit/ Sodium Chloride) 500 mls @ 20 mls/hr IV TITR LANCE; 1,000 UNIT/HR PRN Reason: Protocol Last Titration: 02/13/17 12:05 Dose: 1,300 unit/hr Insulin Aspart (Novolog Vial Sliding Scale -) 1 vial SQ ACHS [facility] PRN Reason: Protocol Last Admin: 02/13/17 11:59 Dose: 4 units Insulin Detemir (Levemir Vial) 15 units SQ HS [facility] Nystatin (Nystop Powder -) 1 applic TP DAILY [facility] Last Admin: 02/13/17 11:58 Dose: 1 applic Oxycodone HCl (Roxicodone -) 10 mg PO Q6H PRN PRN Reason: PAIN Last Admin: 02/13/17 09:10 Dose: 10 mg Pantoprazole Sodium (Protonix -) 40 mg PO DAILY [facility] Last Admin: 02/13/17 11:59 Dose: 40 mg Silver Sulfadiazine (Silvadene -) 1 applic TP DAILY [facility] Last Admin: 02/13/17 09:26 Dose: 1 applic - Objective Vital Signs: Vital Signs Temperature 102.6 F H 02/13/17 10:00 Pulse Rate 87 02/13/17 12:00 Respiratory Rate 02/13/17 12:00 Blood Pressure 136/85 02/13/17 12:00 O2 Sat by Pulse Oximetry (%) 92 L 02/13/17 09:00 Constitutional: Yes: Mild Distress Eyes: Yes: WNL HENT: Yes: WNL Neck: Yes: WNL Cardiovascular: Yes: WNL Respiratory: Yes: WNL Gastrointestinal: Yes: WNL Genitourinary: Yes: WNL Extremities: Yes: Erythema Edema: Yes Peripheral Pulses WNL: Yes Integumentary: Yes: Pressure Ulcer, Skin Tear Wound/Incision: Yes: Dressing Dry and Intact, Excoriated, Unapproximated Neurological: Yes: Pre-Existing Deficit ...Motor Strength: LLE, RLE Psychiatric: Yes: Other Labs: CBC, BMP 02/13/17 05:15 02/13/17 05:30 INR, PTT INR 1.54 (0.82-1.09) H 02/12/17 05:00 Problem List - Problems (1) Cellulitis Code(s): L03.90 - CELLULITIS, UNSPECIFIED Qualifiers: Site of cellulitis of extremity: lower extremity Laterality: right (2) Allergic reaction Code(s): T78.40XA - ALLERGY, UNSPECIFIED, INITIAL ENCOUNTER (3) DM2 (diabetes mellitus, type 2) Code(s): E11.9 - TYPE 2 DIABETES MELLITUS WITHOUT COMPLICATIONS Qualifiers: Diabetes mellitus complication detail: with other circulatory complications (4) Sleep apnea Code(s): G47.30 - SLEEP APNEA, UNSPECIFIED Qualifiers: Sleep apnea type: idiopathic sleep related nonobstructive alveolar hypoventilation Qualified Code(s): G47.34 - Idiopathic sleep related nonobstructive alveolar hypoventilation (5) Asthma Code(s): J45.909 - UNSPECIFIED ASTHMA, UNCOMPLICATED Qualifiers: Asthma severity: mild intermittent (6) Obesity Code(s): E66.9 - OBESITY, UNSPECIFIED Qualifiers: Obesity type: due to excess calories Body mass index: BMI 50.0-59.9 (7) NOVA (acute kidney injury) Code(s): N17.9 - ACUTE KIDNEY FAILURE, UNSPECIFIED (8) Sepsis affecting skin Code(s): A41.9 - SEPSIS, UNSPECIFIED ORGANISM Assessment/Plan IV ABX WOUND CARE BP IMPROVED CONTINUE ICU MONITORING TODAY TRANSFER TOMORROW TO MED/SURG DIETARY CONSULT STRESSED COMPLIANCE TO DIET/MEDICATIONS SNF FOR WOUND CARE AND PHYSICAL THERAPY
--- NOTE | 2017-02-13 13:47 | PN ---
Physical Exam: SUBJECTIVE: Patient seen and examined sitting comfortably comes in bed. denies chest pain, sob, diziness, headache. has couple of spikes of fever overnight. has low tsh. so we will check t3 and t4 her Hb dropped, will get stool for occult and monitor haemoglobin. patinet has high blood sugar, will increase levemir to 15 wbc decreased from 17 to 13 cr 1.6, improving. OBJECTIVE: Vital Signs Period Temp Pulse Resp BP Sys/Callahan Pulse Ox Last 24 Hr 98.2 F-104 F 87-113 17-34 95-136/44-85 92-92 GENERAL: The patient is awake, alert, HEAD: Normal with no signs of trauma. EYES: PERRL, ENT: Ears normal, nares patent, moist mucous membranes. LUNGS: Breath sounds equal, clear to auscultation bilaterally, decrease breath sound at bases HEART: s1s2 normal, irregular ABDOMEN: Soft, nontender, nondistended, normoactive bowel sounds, EXTREMITIES: dressing present on lower limb, wrinkles on dorsal aspect of foot. Laboratory Results - last 24 hr 02/11/17 02/12/17 02/12/17 21:48 05:00 15:44 WBC RBC Hgb Hct MCV MCH MCHC RDW Plt Count MPV PTT (Actin FS) Sodium Potassium Chloride Carbon Dioxide Anion Gap BUN Creatinine POC Glucometer [phone] Random Glucose Calcium Phosphorus Magnesium TSH 0.14 L 02/12/17 02/12/17 02/12/17 19:28 21:41 21:42 WBC 17.1 H RBC 3.38 L Hgb 9.3 L Hct 28.7 L MCV 85.1 MCH 27.7 MCHC 32.5 RDW 16.0 H Plt Count 395 MPV 9.8 PTT (Actin FS) 32.0 Sodium Potassium Chloride Carbon Dioxide Anion Gap BUN Creatinine POC Glucometer [phone] Random Glucose Calcium Phosphorus Magnesium TSH 02/13/17 02/13/17 02/13/17 05:15 05:15 05:30 WBC 13.0 H RBC 2.77 L Hgb 7.8 L D Hct 23.5 L D MCV 84.9 MCH 28.3 MCHC 33.3 RDW 15.4 Plt Count 359 MPV 9.5 PTT (Actin FS) 32.0 Sodium 140 Potassium 4.0 Chloride 107 Carbon Dioxide 20 L Anion Gap 13 BUN 47 H Creatinine 1.6 H D POC Glucometer Random Glucose 231 H Calcium 7.6 L Phosphorus 4.1 D Magnesium 2.2 TSH Active Medications Generic Name Dose Route Start Last Admin Trade Name Freq PRN Reason Stop Dose Admin Acetaminophen 650 mg 02/11/17 16:42 02/13/17 09:23 Tylenol - PO 650 mg Q6H PRN Administration FEVER OR PAIN Albuterol/Ipratropium 1 amp 02/11/17 16:42 Duoneb - NEB Q6H PRN SHORTNESS OF BREATH Bacitracin 1 applic 02/11/17 22:00 02/13/17 12:00 Bacitracin - TP 1 applic BID LANCE Administration Budesonide/Formoterol Fumarate 2 puff 02/11/17 22:00 02/13/17 09:25 Symbicort 80/4.5mcg - IH 2 puff BID LANCE Administration Diltiazem HCl 30 mg 02/13/17 14:00 Cardizem - PO QID LANCE Guaifenesin/Codeine Phosphate 5 ml 02/11/17 15:29 Robitussin Ac - PO BID PRN COUGHING Heparin Sodium (Porcine) 1,000 unit 02/12/17 13:00 Heparin - IVPUSH PRN PRN Heparin Heparin Sodium (Porcine) 5,000 unit 02/12/17 13:00 02/13/17 12:04 Heparin - IVPUSH 5,000 unit PRN PRN Administration Heparin Clindamycin Phosphate 50 mls @ 100 mls/hr 02/11/17 18:00 02/13/17 09:12 Cleocin 900 Mg Premix Ivpb - IVPB 100 mls/hr Q8H-IV LANCE Administration Meropenem 1 gm/ Dextrose 100 mls @ 200 mls/hr 02/11/17 22:00 02/13/17 10:00 IVPB 200 mls/hr BID [facility] Administration Protocol Sodium Chloride 1,000 mls @ 75 mls/hr 02/11/17 16:42 02/12/17 17:14 1/2 Normal Saline IV 75 mls/hr ASDIR LANCE Administration Vancomycin HCl 250 mls @ 166.667 mls/hr 02/12/17 12:00 02/13/17 11:57 Vancomycin (Pre-Docked) IVPB 166.667 mls/hr DAILY@1200 L[facility] Administration Protocol Heparin Sodium (Porcine) 25, 500 mls @ 20 mls/hr 02/12/17 13:30 02/13/17 12:05 000 unit/ Sodium Chloride IV 1,300 unit/hr TITR LANCE Titration Protocol 1,000 UNIT/HR Insulin Aspart 1 vial 02/11/17 22:00 02/13/17 11:59 Novolog Vial Sliding Scale - SQ 4 units ACHS [facility] Administration Protocol Insulin Detemir 15 units 02/13/17 22:00 Levemir Vial SQ HS [facility] Nystatin 1 applic 02/12/17 10:00 02/13/17 11:58 Nystop Powder - TP 1 applic DAILY [facility] Administration Oxycodone HCl 10 mg 02/11/17 16:42 02/13/17 09:10 Roxicodone - PO 10 mg Q6H PRN Administration PAIN Pantoprazole Sodium 40 mg 02/12/17 10:00 02/13/17 11:59 Protonix - PO 40 mg DAILY [facility] Administration Silver Sulfadiazine 1 applic 02/12/17 10:00 02/13/17 09:26 Silvadene - TP 1 applic DAILY [facility] Administration Microbiology 02/10/17 11:45 Leg - Left Lower Gram Stain - Final 02/10/17 11:45 Leg - Left Lower Wound Culture - Final Pseudomonas Aeruginosa Mr S Aureus Enterococcus Faecalis 02/11/17 21:00 Urine - Urine Johnson Urine Culture - Final NO GROWTH OBTAINED 02/11/17 21:30 Blood - Peripheral Venous Blood Culture - Preliminary NO GROWTH OBTAINED AFTER 24 HOURS, INCUBATION TO CONTINUE FOR 4 DAYS. 02/11/17 21:30 Blood - Peripheral Venous Blood Culture - Preliminary NO GROWTH OBTAINED AFTER 24 HOURS, INCUBATION TO CONTINUE FOR 4 DAYS. 02/09/17 18:18 Blood - Peripheral Venous Blood Culture - Preliminary NO GROWTH OBTAINED AFTER 72 HOURS, INCUBATION TO CONTINUE FOR 2 DAYS. 02/09/17 18:18 Blood - Peripheral Venous Blood Culture - Preliminary NO GROWTH OBTAINED AFTER 72 HOURS, INCUBATION TO CONTINUE FOR 2 DAYS. ASSESSMENT/PLAN: Cellulitis Severe Sepsis Acute Kidney Injury Lactic Acidosis Atrial Fibrillation with RVR Morbid Obesity Uncontrolled Diabetes - continue antibiotics - IVF - monitor urine output, - monitor creatinine - O2 to keep SpO2 >90% - glucose control, diabetic diet - rate control with po cardiazem 30 q6h - continue anticoagulation heparin drip - monitor haemoglobin - get t3 and t4 - levemir increased to 15. - get stool for occult blood. - can monitor on telemetry Visit type - Emergency Visit Emergency Visit: Yes ED Registration Date: 02/09/17 Care time: The patient presented to the Emergency Department on the above date and was hospitalized for further evaluation of their emergent condition. - New Patient This patient is new to me today: Yes Date on this admission: 02/13/17 - Critical Care Critical Care patient: Yes Total Critical Care Time (in minutes): 45 Critical Care Statement: The care of this patient involved high complexity decision making to prevent further life threatening deterioration of the patient 's condition and/or to evaluate & treat vital organ system(s) failure or risk of failure.
--- NOTE | 2017-02-13 14:27 | PN ---
Progress Note, Physician History of Present Illness: Pt seen and examined at bedside. She is awake and alert. She complains of cough. - Current Medication List Current Medications: Active Medications Acetaminophen (Tylenol -) 650 mg PO Q6H PRN PRN Reason: FEVER OR PAIN Last Admin: 02/13/17 09:23 Dose: 650 mg Albuterol/Ipratropium (Duoneb -) 1 amp NEB Q6H PRN PRN Reason: SHORTNESS OF BREATH Bacitracin (Bacitracin -) 1 applic TP BID [facility]ANCE Last Admin: 02/13/17 12:00 Dose: 1 applic Budesonide/Formoterol Fumarate (Symbicort 80/4.5mcg -) 2 puff IH BID LANCE Last Admin: 02/13/17 09:25 Dose: 2 puff Diltiazem HCl (Cardizem -) 30 mg PO QID L[facility] Guaifenesin/Codeine Phosphate (Robitussin Ac -) 5 ml PO BID PRN PRN Reason: COUGHING Heparin Sodium (Porcine) (Heparin -) 1,000 unit IVPUSH PRN PRN PRN Reason: Heparin Heparin Sodium (Porcine) (Heparin -) 5,000 unit IVPUSH PRN PRN PRN Reason: Heparin Last Admin: 02/13/17 12:04 Dose: 5,000 unit Clindamycin Phosphate (Cleocin 900 Mg Premix Ivpb -) 50 mls @ 100 mls/hr IVPB Q8H-IV [facility] Last Admin: 02/13/17 09:12 Dose: 100 mls/hr Meropenem 1 gm/ Dextrose 100 mls @ 200 mls/hr IVPB BID L[facility] PRN Reason: Protocol Last Admin: 02/13/17 10:00 Dose: 200 mls/hr Sodium Chloride (1/2 Normal Saline) 1,000 mls @ 75 mls/hr IV ASDIR [facility] Last Admin: 02/12/17 17:14 Dose: 75 mls/hr Vancomycin HCl (Vancomycin (Pre-Docked)) 250 mls @ 166.667 mls/hr IVPB DAILY@ 1200 LANCE PRN Reason: Protocol Last Admin: 02/13/17 11:57 Dose: 166.667 mls/hr Heparin Sodium (Porcine) 25, (000 unit/ Sodium Chloride) 500 mls @ 20 mls/hr IV TITR LANCE; 1,000 UNIT/HR PRN Reason: Protocol Last Titration: 02/13/17 12:05 Dose: 1,300 unit/hr Insulin Aspart (Novolog Vial Sliding Scale -) 1 vial SQ ACHS LANCE PRN Reason: Protocol Last Admin: 02/13/17 11:59 Dose: 4 units Insulin Detemir (Levemir Vial) 15 units SQ HS [facility] Nystatin (Nystop Powder -) 1 applic TP DAILY [facility] Last Admin: 02/13/17 11:58 Dose: 1 applic Oxycodone HCl (Roxicodone -) 10 mg PO Q6H PRN PRN Reason: PAIN Last Admin: 02/13/17 09:10 Dose: 10 mg Pantoprazole Sodium (Protonix -) 40 mg PO DAILY [facility] Last Admin: 02/13/17 11:59 Dose: 40 mg Silver Sulfadiazine (Silvadene -) 1 applic TP DAILY [facility] Last Admin: 02/13/17 09:26 Dose: 1 applic - Objective Vital Signs: Vital Signs Temperature 102.6 F H 02/13/17 10:00 Pulse Rate 87 02/13/17 12:00 Respiratory Rate 02/13/17 12:00 Blood Pressure 136/85 02/13/17 12:00 O2 Sat by Pulse Oximetry (%) 92 L 02/13/17 09:00 Constitutional: Yes: Calm Eyes: Yes: Conjunctiva Clear HENT: Yes: Atraumatic Cardiovascular: Yes: S1, S2 Respiratory: Yes: Wheezes Gastrointestinal: Yes: Soft, Abdomen, Obese Genitourinary: Yes: WNL Musculoskeletal: Yes: WNL Edema: Yes Edema: LLE: 1+, RLE: 1+ Integumentary: Yes: Erythema Neurological: Yes: Oriented Psychiatric: Yes: Oriented Labs: CBC, BMP 02/13/17 05:15 02/13/17 05:30 INR, PTT INR 1.54 (0.82-1.09) H 02/12/17 05:00 Problem List - Problems (1) Cellulitis Code(s): L03.90 - CELLULITIS, UNSPECIFIED Qualifiers: Site of cellulitis of extremity: lower extremity Laterality: right (2) Fever Code(s): R50.9 - FEVER, UNSPECIFIED (3) Obesity Code(s): E66.9 - OBESITY, UNSPECIFIED Qualifiers: Obesity type: due to excess calories Body mass index: BMI 50.0-59.9 (4) Sepsis Code(s): A41.9 - SEPSIS, UNSPECIFIED ORGANISM Qualifiers: Sepsis type: sepsis due to unspecified organism Qualified Code(s): A41.9 - Sepsis, unspecified organism (5) NOVA (acute kidney injury) Code(s): N17.9 - ACUTE KIDNEY FAILURE, UNSPECIFIED Assessment/Plan Current Medications Generic Name Dose Route Start Last Admin Trade Name Freq PRN Reason Stop Dose Admin Acetaminophen 650 mg 02/11/17 16:42 02/13/17 09:23 Tylenol - PO 650 mg Q6H PRN Administration FEVER OR PAIN Albuterol/Ipratropium 1 amp 02/11/17 16:42 Duoneb - NEB Q6H PRN SHORTNESS OF BREATH Bacitracin 1 applic 02/11/17 22:00 02/13/17 12:00 Bacitracin - TP 1 applic BID LANCE Administration Budesonide/Formoterol Fumarate 2 puff 02/11/17 22:00 02/13/17 09:25 Symbicort 80/4.5mcg - IH 2 puff BID LANCE Administration Diltiazem HCl 30 mg 02/13/17 14:00 Cardizem - PO QID LANCE Guaifenesin/Codeine Phosphate 5 ml 02/11/17 15:29 Robitussin Ac - PO BID PRN COUGHING Heparin Sodium (Porcine) 1,000 unit 02/12/17 13:00 Heparin - IVPUSH PRN PRN Heparin Heparin Sodium (Porcine) 5,000 unit 02/12/17 13:00 02/13/17 12:04 Heparin - IVPUSH 5,000 unit PRN PRN Administration Heparin Clindamycin Phosphate 50 mls @ 100 mls/hr 02/11/17 18:00 02/13/17 09:12 Cleocin 900 Mg Premix Ivpb - IVPB 100 mls/hr Q8H-IV LANCE Administration Meropenem 1 gm/ Dextrose 100 mls @ 200 mls/hr 02/11/17 22:00 02/13/17 10:00 IVPB 200 mls/hr BID LANCE Administration Protocol Sodium Chloride 1,000 mls @ 75 mls/hr 02/11/17 16:42 02/12/17 17:14 1/2 Normal Saline IV 75 mls/hr ASDIR LANCE Administration Vancomycin HCl 250 mls @ 166.667 mls/hr 02/12/17 12:00 02/13/17 11:57 Vancomycin (Pre-Docked) IVPB 166.667 mls/hr DAILY@1200 LANCE Administration Protocol Heparin Sodium (Porcine) 25, 500 mls @ 20 mls/hr 02/12/17 13:30 02/13/17 12:05 000 unit/ Sodium Chloride IV 1,300 unit/hr TITR LANCE Titration Protocol 1,000 UNIT/HR Insulin Aspart 1 vial 02/11/17 22:00 02/13/17 11:59 Novolog Vial Sliding Scale - SQ 4 units ACHS LANCE Administration Protocol Insulin Detemir 15 units 02/13/17 22:00 Levemir Vial SQ HS LANCE Nystatin 1 applic 02/12/17 10:00 02/13/17 11:58 Nystop Powder - TP 1 applic DAILY LANCE Administration Oxycodone HCl 10 mg 02/11/17 16:42 02/13/17 14:20 Roxicodone - PO 10 mg Q6H PRN Administration PAIN Pantoprazole Sodium 40 mg 02/12/17 10:00 02/13/17 11:59 Protonix - PO 40 mg DAILY LANCE Administration Silver Sulfadiazine 1 applic 02/12/17 10:00 02/13/17 09:26 Silvadene - TP 1 applic DAILY LANCE Administration Impression 1. NOVA with worsening creatinine 2. sepsis 3. cellulitis 4. DM 5. a-fib Plan - renal function is improving - wbc is improving - can start to decrease rate of fluids - monitor renal function - get cxr in am - monitor vanco levels - discussed with ICU team - con monitor and storage bin tender - will follow Dr Epstein
[2017-02-13] MEDS ORDERED: SODIUM CHLORIDE 0.45% 1,000 ML IV SCH (14:28)
--- NOTE | 2017-02-13 14:46 | PN ---
Teaching Attending Note Name of Resident: Solis Garcia ATTENDING PHYSICIAN STATEMENT I saw and evaluated the patient. I reviewed the resident's note and discussed the case with the resident. I agree with the resident's findings and plan as documented. SUBJECTIVE: Pt seen and examined in the ICU. Remains febrile, tachycardic in rapid atrial fibrillation. Denies shortness of breath. OBJECTIVE: Last Vital Signs Temp Pulse Resp BP Pulse Ox 102.6 F H 87 17 136/85 92 L 02/13/17 10:00 02/13/17 12:00 02/13/17 12:00 02/13/17 12:00 02/13/17 09:00 Intake & Output 02/10/17 02/11/17 02/12/17 02/13/17 23:59 23:59 23:59 23:59 Intake Total 1850 1660 3220 2300 Output Total 250 1700 1700 Balance 1850 1410 1520 600 Weight 250 lb 245 lb 5 oz 244 lb 11.41 oz Gen: less tachypneic Heart: tachycardic, irregular Lung: decreased breath sounds at the bases Abd: soft, nontender, obese Ext: + edema, less erythema CBC, BMP 02/13/17 05:15 02/13/17 05:30 Active Medications Acetaminophen (Tylenol -) 650 mg PO Q6H PRN PRN Reason: FEVER OR PAIN Last Admin: 02/13/17 09:23 Dose: 650 mg Albuterol/Ipratropium (Duoneb -) 1 amp NEB Q6H PRN PRN Reason: SHORTNESS OF BREATH Bacitracin (Bacitracin -) 1 applic TP BID [facility] Last Admin: 02/13/17 12:00 Dose: 1 applic Budesonide/Formoterol Fumarate (Symbicort 80/4.5mcg -) 2 puff IH BID [facility] Last Admin: 02/13/17 09:25 Dose: 2 puff Diltiazem HCl (Cardizem -) 30 mg PO QID [facility] Guaifenesin/Codeine Phosphate (Robitussin Ac -) 5 ml PO BID PRN PRN Reason: COUGHING Heparin Sodium (Porcine) (Heparin -) 1,000 unit IVPUSH PRN PRN PRN Reason: Heparin Heparin Sodium (Porcine) (Heparin -) 5,000 unit IVPUSH PRN PRN PRN Reason: Heparin Last Admin: 02/13/17 12:04 Dose: 5,000 unit Clindamycin Phosphate (Cleocin 900 Mg Premix Ivpb -) 50 mls @ 100 mls/hr IVPB Q8H-IV [facility] Last Admin: 02/13/17 09:12 Dose: 100 mls/hr Meropenem 1 gm/ Dextrose 100 mls @ 200 mls/hr IVPB BID LANCE PRN Reason: Protocol Last Admin: 02/13/17 10:00 Dose: 200 mls/hr Vancomycin HCl (Vancomycin (Pre-Docked)) 250 mls @ 166.667 mls/hr IVPB DAILY@ 1200 LANCE PRN Reason: Protocol Last Admin: 02/13/17 11:57 Dose: 166.667 mls/hr Heparin Sodium (Porcine) 25, (000 unit/ Sodium Chloride) 500 mls @ 20 mls/hr IV TITR LANCE; 1,000 UNIT/HR PRN Reason: Protocol Last Titration: 02/13/17 12:05 Dose: 1,300 unit/hr Sodium Chloride (1/2 Normal Saline) 1,000 mls @ 50 mls/hr IV ASDIR LANCE Insulin Aspart (Novolog Vial Sliding Scale -) 1 vial SQ ACHS LANCE PRN Reason: Protocol Last Admin: 02/13/17 11:59 Dose: 4 units Insulin Detemir (Levemir Vial) 15 units SQ HS LANCE Nystatin (Nystop Powder -) 1 applic TP DAILY [facility] Last Admin: 02/13/17 11:58 Dose: 1 applic Oxycodone HCl (Roxicodone -) 10 mg PO Q6H PRN PRN Reason: PAIN Last Admin: 02/13/17 14:20 Dose: 10 mg Pantoprazole Sodium (Protonix -) 40 mg PO DAILY LANCE Last Admin: 02/13/17 11:59 Dose: 40 mg Silver Sulfadiazine (Silvadene -) 1 applic TP DAILY [facility] Last Admin: 02/13/17 09:26 Dose: 1 applic ASSESSMENT AND PLAN: Cellulitis Severe Sepsis Acute Kidney Injury Lactic Acidosis Atrial Fibrillation with RVR Morbid Obesity Uncontrolled Diabetes - continue antibiotics - IVF - monitor urine output, creatinine - O2 to keep SpO2 >90% - glucose control - rate control - continue anticoagulation - can monitor on telemetry critical care time spent in reviewing chart, evaluating patient and formulating plan 35 min Problem List - Problems (1) Cellulitis Code(s): L03.90 - CELLULITIS, UNSPECIFIED Qualifiers: Qualified Code(s): L03.115 - Cellulitis of right lower limb (2) Severe sepsis Code(s): A41.9 - SEPSIS, UNSPECIFIED ORGANISM R65.20 - SEVERE SEPSIS WITHOUT SEPTIC SHOCK (3) NOVA (acute kidney injury) Code(s): N17.9 - ACUTE KIDNEY FAILURE, UNSPECIFIED (4) Lactic acidosis Code(s): E87.2 - ACIDOSIS (5) Morbid obesity Code(s): E66.01 - MORBID (SEVERE) OBESITY DUE TO EXCESS CALORIES (6) DM2 (diabetes mellitus, type 2) Code(s): E11.9 - TYPE 2 DIABETES MELLITUS WITHOUT COMPLICATIONS
[2017-02-13] MEDS: HEPARIN - 25,000 UNIT in SODIUM CHLORIDE 495 ML IV SCH (15:31)
[2017-02-13] MEDS: dilTIAZem HCL 30 MG TABLET (FP) PO SCH ×3 (15:33→22:34)
[2017-02-13 17:36] LABS: MCH 28.4 pg (25.7-33.7); MCHC 33.3 g/dl (32.0-36.0); MEAN CELL VOLUME 85.1 fl (80-96); MEAN PLT VOLUME 9.7 fl (7.5-11.1); PLATELET COUNT 377 K/MM3 (134-434); RDW 15.5 % (11.6-15.6); WHITE BLOOD COUNT 13.4 K/mm3 (4.0-10.0)
--- NOTE | 2017-02-13 17:45 | PN ---
Progress Note, Physician History of Present Illness: events noted spiked to 104 last night still spiking patient blood pressure is low now spiked to 103 patient is septic looking - Current Medication List Current Medications: Active Medications Acetaminophen (Tylenol -) 650 mg PO Q6H PRN PRN Reason: FEVER OR PAIN Last Admin: 02/13/17 09:23 Dose: 650 mg Albuterol/Ipratropium (Duoneb -) 1 amp NEB Q6H PRN PRN Reason: SHORTNESS OF BREATH Bacitracin (Bacitracin -) 1 applic TP BID [facility] Last Admin: 02/13/17 12:00 Dose: 1 applic Budesonide/Formoterol Fumarate (Symbicort 80/4.5mcg -) 2 puff IH BID [facility] Last Admin: 02/13/17 09:25 Dose: 2 puff Diltiazem HCl (Cardizem -) 30 mg PO QID LANCE Last Admin: 02/13/17 15:33 Dose: Not Given Guaifenesin/Codeine Phosphate (Robitussin Ac -) 5 ml PO BID PRN PRN Reason: COUGHING Heparin Sodium (Porcine) (Heparin -) 1,000 unit IVPUSH PRN PRN PRN Reason: Heparin Heparin Sodium (Porcine) (Heparin -) 5,000 unit IVPUSH PRN PRN PRN Reason: Heparin Last Admin: 02/13/17 12:04 Dose: 5,000 unit Clindamycin Phosphate (Cleocin 900 Mg Premix Ivpb -) 50 mls @ 100 mls/hr IVPB Q8H-IV [facility] Last Admin: 02/13/17 09:12 Dose: 100 mls/hr Meropenem 1 gm/ Dextrose 100 mls @ 200 mls/hr IVPB BID LANCE PRN Reason: Protocol Last Admin: 02/13/17 10:00 Dose: 200 mls/hr Vancomycin HCl (Vancomycin (Pre-Docked)) 250 mls @ 166.667 mls/hr IVPB DAILY@ 1200 LANCE PRN Reason: Protocol Last Admin: 02/13/17 11:57 Dose: 166.667 mls/hr Heparin Sodium (Porcine) 25, (000 unit/ Sodium Chloride) 500 mls @ 20 mls/hr IV TITR LANCE; 1,000 UNIT/HR PRN Reason: Protocol Last Admin: 02/13/17 15:31 Dose: 26 mls/hr Sodium Chloride (1/2 Normal Saline) 1,000 mls @ 50 mls/hr IV ASDIR [facility] Last Admin: 02/13/17 15:38 Dose: 50 mls/hr Insulin Aspart (Novolog Vial Sliding Scale -) 1 vial SQ ACHS LANCE PRN Reason: Protocol Last Admin: 02/13/17 11:59 Dose: 4 units Insulin Detemir (Levemir Vial) 15 units SQ HS [facility] Nystatin (Nystop Powder -) 1 applic TP DAILY [facility] Last Admin: 02/13/17 11:58 Dose: 1 applic Oxycodone HCl (Roxicodone -) 10 mg PO Q6H PRN PRN Reason: PAIN Last Admin: 02/13/17 14:20 Dose: 10 mg Pantoprazole Sodium (Protonix -) 40 mg PO DAILY [facility] Last Admin: 02/13/17 11:59 Dose: 40 mg Silver Sulfadiazine (Silvadene -) 1 applic TP DAILY [facility] Last Admin: 02/13/17 09:26 Dose: 1 applic - Objective Vital Signs: Vital Signs Temperature 100.5 F H 02/13/17 14:00 Pulse Rate 108 H 02/13/17 14:00 Respiratory Rate 02/13/17 14:00 Blood Pressure 83/60 02/13/17 14:00 O2 Sat by Pulse Oximetry (%) 92 L 02/13/17 09:00 Constitutional: Yes: Obese, Other Eyes: Yes: Conjunctiva Clear Cardiovascular: Yes: Regular Rate and Rhythm Respiratory: Yes: Regular, Rhonchi Gastrointestinal: Yes: Normal Bowel Sounds, Soft Musculoskeletal: Yes: Other Extremities: Yes: Other Integumentary: Yes: Erythema, Other (cellulitis marginally better) Wound/Incision: Yes: Dressing Dry and Intact, Reddened, Other Neurological: Yes: Alert, Oriented Psychiatric: Yes: Alert, Oriented Labs: CBC, BMP 02/13/17 05:30 INR, PTT INR 1.54 (0.82-1.09) H 02/12/17 05:00 Assessment/Plan Problem List - Problems (1) Asthma Code(s): J45.909 - UNSPECIFIED ASTHMA, UNCOMPLICATED Qualifiers: Asthma severity: mild intermittent (2) Cellulitis Code(s): L03.90 - CELLULITIS, UNSPECIFIED Qualifiers: Site of cellulitis of extremity: lower extremity Laterality: right (3) Obesity Code(s): E66.9 - OBESITY, UNSPECIFIED Qualifiers: Obesity type: due to excess calories Body mass index: BMI 50.0-59.9 (4) Acute renal failure Code(s): N17.9 - ACUTE KIDNEY FAILURE, UNSPECIFIED (5) Chronic cellulitis Code(s): L03.90 - CELLULITIS, UNSPECIFIED (6) DM2 (diabetes mellitus, type 2) Code(s): E11.9 - TYPE 2 DIABETES MELLITUS WITHOUT COMPLICATIONS Qualifiers: Diabetes mellitus complication detail: with other circulatory complications (7) Leukocytosis Code(s): D72.829 - ELEVATED WHITE BLOOD CELL COUNT, UNSPECIFIED (8) Sepsis Code(s): A41.9 - SEPSIS, UNSPECIFIED ORGANISM Qualifiers: Sepsis type: sepsis due to unspecified organism Qualified Code(s): A41.9 - Sepsis, unspecified organism (9) Fever Code(s): R50.9 - FEVER, UNSPECIFIED patient still not out of restrepo patient still with toxic looking patient leg still erythematous and has blebs present last spike to 101 inspite of abx patient spiking fevers and patient showing all signs being septic with low blood pressure patient s metal status has also fluctuated patient is still very critical wbc had come down to 13 now increasing to 13.4 patient i think is still critical patient is on 3 abx and inspite of that she is spiking patient still critical still the leg is pretty celluitic plan continue abx repeat lactic acid we should get mri or ct scan of the legs again to see if there any abscess or any other changes very close monitoring rest as per icu cc time 45 min
[2017-02-13] MEDS ORDERED: SODIUM CHLORIDE 500 ML IV STA (18:12)
[2017-02-13] MEDS: SODIUM CHLORIDE 1,000 ML IV SCH (18:48)
[2017-02-13] MEDS ORDERED: morphine CARPU-JECT 2 MG/1 ML DISP.SYRIN ONE (22:07)
[2017-02-13] MEDS ORDERED: morphine CARPU-JECT 2 MG/1 ML DISP.SYRIN IVPUSH ONE (22:33)
[2017-02-13] MEDS: INSULIN DETEMIR 100 UNITS/ML MDV SQ SCH (22:34)
[2017-02-14] MEDS: CLINDAMYCIN 900 MG PREMIX IVPB 50 ML IVPB SCH ×3 (02:00→17:46)
[2017-02-14 06:22] LABS: MCH 28.1 pg (25.7-33.7); MCHC 32.9 g/dl (32.0-36.0); MEAN CELL VOLUME 85.4 fl (80-96); MEAN PLT VOLUME 9.7 fl (7.5-11.1); PLATELET COUNT 392 K/MM3 (134-434); RDW 15.5 % (11.6-15.6); WHITE BLOOD COUNT 13.1 K/mm3 (4.0-10.0)
[2017-02-14 06:44] LABS: ALBUMIN 1.7 g/dl (3.4-5.0); ANION GAP 8 (8-16); CALCIUM 7.8 mg/dL (8.5-10.1); CO2 21 mmol/L (21-32); CREATININE 1.2 mg/dL (0.55-1.02); GLUCOSE,RANDOM 199 mg/dL (74-106); MAGNESIUM 2.1 mg/dL (1.8-2.4); PHOSPHOROUS 3.8 mg/dL (2.5-4.9); SGOT/AST 18 U/L (15-37); SGPT/ALT 31 U/L (12-78)
[2017-02-14 06:46] LABS: ALK PHOS 127 U/L (45-117); BILIRUBIN,TOTAL 0.4 mg/dL (0.2-1.0); TOT PROT 5.3 g/dl (6.4-8.2)
[2017-02-14] MEDS: INSULIN SLIDING SCALE (NOVOLOG) 1 VIAL SQ SCH ×4 (07:00→22:48)
[2017-02-14] MEDS ORDERED: PT OWN MED DRAWER 7, Y5N ONE ×2 (07:36→21:24)
--- NOTE | 2017-02-14 08:22 | PN ---
<Mariano Orozco - Last Filed: 02/14/17 08:25> Physical Exam: SUBJECTIVE: Patient seen and examined OBJECTIVE: Vital Signs Period Temp Pulse Resp BP Sys/Callahan Pulse Ox Last 24 Hr 99.6 F-102.6 F 87-111 17-25 83-136/53-85 92-96 Constitutional: Yes: Obese, Other Eyes: Yes: Conjunctiva Clear Cardiovascular: Yes: Regular Rate and Rhythm Respiratory: Yes: Regular, Rhonchi Gastrointestinal: Yes: Normal Bowel Sounds, Soft Musculoskeletal: Yes: Other Extremities: Yes: Other Integumentary: Yes: Erythema, Other (cellulitis marginally better) Wound/Incision: Yes: Dressing Dry and Intact, Reddened, Other Neurological: Yes: Alert, Oriented Psychiatric: Yes: Alert, Oriented Laboratory Results - last 24 hr 02/13/17 02/13/17 02/13/17 05:30 17:00 17:00 WBC 13.4 H RBC 3.23 L Hgb 9.2 L D Hct 27.5 L D MCV 85.1 MCH 28.4 MCHC 33.3 RDW 15.5 Plt Count 377 MPV 9.7 PTT (Actin FS) 34.0 Sodium 140 Potassium 4.0 Chloride 107 Carbon Dioxide 20 L Anion Gap 13 BUN 47 H Creatinine 1.6 H D Creat Clearance w eGFR POC Glucometer Random Glucose 231 H Lactic Acid Calcium 7.6 L Phosphorus 4.1 D Magnesium 2.2 Total Bilirubin AST ALT Alkaline Phosphatase Total Protein Albumin Free T4 02/13/17 02/13/17 02/13/17 18:30 22:27 22:53 WBC RBC Hgb Hct MCV MCH MCHC RDW Plt Count MPV PTT (Actin FS) 41.3 H Sodium Potassium Chloride Carbon Dioxide Anion Gap BUN Creatinine Creat Clearance w eGFR POC Glucometer [phone] Random Glucose Lactic Acid 1.5 Calcium Phosphorus Magnesium Total Bilirubin AST ALT Alkaline Phosphatase Total Protein Albumin Free T4 02/14/17 02/14/17 05:10 05:10 WBC 13.1 H RBC 3.18 L Hgb 8.9 L Hct 27.2 L MCV 85.4 MCH 28.1 MCHC 32.9 RDW 15.5 Plt Count 392 MPV 9.7 PTT (Actin FS) Sodium 139 Potassium 3.7 Chloride 110 H Carbon Dioxide 21 Anion Gap 8 BUN 40 H Creatinine 1.2 H D Creat Clearance w eGFR 46.99 POC Glucometer Random Glucose 199 H Lactic Acid Calcium 7.8 L Phosphorus 3.8 Magnesium 2.1 Total Bilirubin 0.4 AST 18 D ALT 31 Alkaline Phosphatase 127 H Total Protein 5.3 L Albumin 1.7 L Free T4 1.10 Active Medications Generic Name Dose Route Start Last Admin Trade Name Freq PRN Reason Stop Dose Admin Acetaminophen 650 mg 02/11/17 16:42 02/13/17 23:01 Tylenol - PO 650 mg Q6H PRN Administration FEVER OR PAIN Albuterol/Ipratropium 1 amp 02/11/17 16:42 Duoneb - NEB Q6H PRN SHORTNESS OF BREATH Bacitracin 1 applic 02/11/17 22:00 02/13/17 22:33 Bacitracin - TP 1 applic BID LANCE Administration Budesonide/Formoterol Fumarate 2 puff 02/11/17 22:00 02/13/17 22:36 Symbicort 80/4.5mcg - IH 2 puff BID LANCE Administration Diltiazem HCl 30 mg 02/13/17 14:00 02/13/17 22:34 Cardizem - PO Not Given QID LANCE Guaifenesin/Codeine Phosphate 5 ml 02/11/17 15:29 Robitussin Ac - PO BID PRN COUGHING Heparin Sodium (Porcine) 1,000 unit 02/12/17 13:00 Heparin - IVPUSH PRN PRN Heparin Heparin Sodium (Porcine) 5,000 unit 02/12/17 13:00 02/13/17 12:04 Heparin - IVPUSH 5,000 unit PRN PRN Administration Heparin Clindamycin Phosphate 50 mls @ 100 mls/hr 02/11/17 18:00 02/14/17 02:00 Cleocin 900 Mg Premix Ivpb - IVPB 100 mls/hr Q8H-IV LANCE Administration Meropenem 1 gm/ Dextrose 100 mls @ 200 mls/hr 02/11/17 22:00 02/13/17 22:34 IVPB 200 mls/hr BID LANCE Administration Protocol Vancomycin HCl 250 mls @ 166.667 mls/hr 02/12/17 12:00 02/13/17 11:57 Vancomycin (Pre-Docked) IVPB 166.667 mls/hr DAILY@1200 LANCE Administration Protocol Heparin Sodium (Porcine) 25, 500 mls @ 20 mls/hr 02/12/17 13:30 02/13/17 19:00 000 unit/ Sodium Chloride IV 1,450 unit/hr TITR LANCE Titration Protocol 1,000 UNIT/HR Sodium Chloride 1,000 mls @ 100 mls/hr 02/13/17 18:30 02/13/17 18:48 Normal Saline - IV 100 mls/hr ASDIR LANCE Administration Insulin Aspart 1 vial 02/11/17 22:00 02/13/17 22:35 Novolog Vial Sliding Scale - SQ Not Given ACHS LANCE Protocol Insulin Detemir 15 units 02/13/17 22:00 02/13/17 22:34 Levemir Vial SQ 15 units HS LANCE Administration Nystatin 1 applic 02/12/17 10:00 02/13/17 11:58 Nystop Powder - TP 1 applic DAILY LANCE Administration Oxycodone HCl 10 mg 02/11/17 16:42 02/13/17 22:36 Roxicodone - PO 10 mg Q6H PRN Administration PAIN Pantoprazole Sodium 40 mg 02/12/17 10:00 02/13/17 11:59 Protonix - PO 40 mg DAILY LANCE Administration Silver Sulfadiazine 1 applic 02/12/17 10:00 02/13/17 09:26 Silvadene - TP 1 applic DAILY LANCE Administration ASSESSMENT/PLAN: ASSESSMENT AND PLAN: Cellulitis Severe Sepsis Acute Kidney Injury Lactic Acidosis Atrial Fibrillation with RVR Morbid Obesity Uncontrolled Diabetes - continue antibiotics - IVF - monitor urine output, creatinine - O2 to keep SpO2 >90% - glucose control - rate control - continue anticoagulation - can monitor on telemetry <Hazel Perez - Last Filed: 02/14/17 15:32> Physical Exam: SUBJECTIVE: Patient seen and examined OBJECTIVE: Vital Signs Period Temp Pulse Resp BP Sys/Callahan Pulse Ox Last 24 Hr 98.4 F-99.8 F 88-110 20-33 95-132/48-79 96-96 GENERAL: The patient is awake, alert, and fully oriented, in no acute distress. HEAD: Normal with no signs of trauma. EYES: PERRL, extraocular movements intact, sclera anicteric, conjunctiva clear. No ptosis. ENT: Ears normal, nares patent, oropharynx clear without exudates, moist mucous membranes. NECK: Trachea midline, full range of motion, supple. LUNGS: Breath sounds equal, clear to auscultation bilaterally, no wheezes, no crackles, no accessory muscle use. HEART: Regular rate and rhythm, S1, S2 without murmur, rub or gallop. ABDOMEN: Soft, nontender, nondistended, normoactive bowel sounds, no guarding, no rebound, no hepatosplenomegaly, no masses. EXTREMITIES: 2+ pulses, warm, well-perfused, no edema. NEUROLOGICAL: Cranial nerves II through XII grossly intact. Normal speech, gait not observed. PSYCH: Normal mood, normal affect. SKIN: Warm, dry, normal turgor, no rashes or lesions noted Laboratory Results - last 24 hr 02/13/17 02/13/17 02/13/17 17:00 17:00 18:30 WBC 13.4 H RBC 3.23 L Hgb 9.2 L D Hct 27.5 L D MCV 85.1 MCH 28.4 MCHC 33.3 RDW 15.5 Plt Count 377 MPV 9.7 PTT (Actin FS) 34.0 Sodium Potassium Chloride Carbon Dioxide Anion Gap BUN Creatinine Creat Clearance w eGFR POC Glucometer Random Glucose Lactic Acid 1.5 Calcium Phosphorus Magnesium Total Bilirubin AST ALT Alkaline Phosphatase Total Protein Albumin Free T4 02/13/17 02/13/17 02/14/17 22:27 22:53 05:10 WBC RBC Hgb Hct MCV MCH MCHC RDW Plt Count MPV PTT (Actin FS) 41.3 H Sodium 139 Potassium 3.7 Chloride 110 H Carbon Dioxide 21 Anion Gap 8 BUN 40 H Creatinine 1.2 H D Creat Clearance w eGFR 46.99 POC Glucometer [phone] Random Glucose 199 H Lactic Acid Calcium 7.8 L Phosphorus 3.8 Magnesium 2.1 Total Bilirubin 0.4 AST 18 D ALT 31 Alkaline Phosphatase 127 H Total Protein 5.3 L Albumin 1.7 L Free T4 1.10 02/14/17 02/14/17 05:10 09:46 WBC 13.1 H RBC 3.18 L Hgb 8.9 L Hct 27.2 L MCV 85.4 MCH 28.1 MCHC 32.9 RDW 15.5 Plt Count 392 MPV 9.7 PTT (Actin FS) 37.8 H Sodium Potassium Chloride Carbon Dioxide Anion Gap BUN Creatinine Creat Clearance w eGFR POC Glucometer Random Glucose Lactic Acid Calcium Phosphorus Magnesium Total Bilirubin AST ALT Alkaline Phosphatase Total Protein Albumin Free T4 Active Medications Generic Name Dose Route Start Last Admin Trade Name Freq PRN Reason Stop Dose Admin Acetaminophen 650 mg 02/11/17 16:42 02/14/17 14:54 Tylenol - PO 650 mg Q6H PRN Administration FEVER OR PAIN Albuterol/Ipratropium 1 amp 02/11/17 16:42 Duoneb - NEB Q6H PRN SHORTNESS OF BREATH Apixaban 5 mg 02/14/17 14:29 Eliquis - PO BID LANCE Bacitracin 1 applic 02/11/17 22:00 02/14/17 09:13 Bacitracin - TP 1 applic BID LANCE Administration Budesonide/Formoterol Fumarate 2 puff 02/11/17 22:00 02/14/17 09:15 Symbicort 80/4.5mcg - IH 2 puff BID LANCE Administration Diltiazem HCl 30 mg 02/13/17 14:00 02/14/17 14:53 Cardizem - PO 30 mg QID LANCE Administration Guaifenesin/Codeine Phosphate 5 ml 02/11/17 15:29 Robitussin Ac - PO BID PRN COUGHING Clindamycin Phosphate 50 mls @ 100 mls/hr 02/11/17 18:00 02/14/17 09:14 Cleocin 900 Mg Premix Ivpb - IVPB 100 mls/hr Q8H-IV LANCE Administration Meropenem 1 gm/ Dextrose 100 mls @ 200 mls/hr 02/11/17 22:00 02/14/17 09:14 IVPB 200 mls/hr BID LANCE Administration Protocol Vancomycin HCl 250 mls @ 166.667 mls/hr 02/12/17 12:00 02/14/17 12:49 Vancomycin (Pre-Docked) IVPB 166.667 mls/hr DAILY@1200 LANCE Administration Protocol Sodium Chloride 1,000 mls @ 100 mls/hr 02/13/17 18:30 02/13/17 18:48 Normal Saline - IV 100 mls/hr ASDIR LANCE Administration Insulin Aspart 1 vial 02/11/17 22:00 02/14/17 12:48 Novolog Vial Sliding Scale - SQ 8 units ACHS LANCE Administration Protocol Insulin Detemir 15 units 02/13/17 22:00 02/13/17 22:34 Levemir Vial SQ 15 units HS LANCE Administration Nystatin 1 applic 02/12/17 10:00 02/14/17 09:14 Nystop Powder - TP 1 applic DAILY LANCE Administration Oxycodone HCl 10 mg 02/11/17 16:42 02/14/17 14:52 Roxicodone - PO 10 mg Q6H PRN Administration PAIN Pantoprazole Sodium 40 mg 02/12/17 10:00 02/14/17 09:15 Protonix - PO 40 mg DAILY LANCE Administration Silver Sulfadiazine 1 applic 02/12/17 10:00 02/14/17 09:15 Silvadene - TP 1 applic DAILY LANCE Administration ASSESSMENT/PLAN: 51-year-old female who is morbidly obese, presenting with cellulitis and fever, noted to be in atrial fibrillation. Left Leg cellulitis/sepsis - continue vanco/clindamycin/meroponem - IVF NS 100cc/h - monitor urine output, creatinine - O2 to keep SpO2 >90% New onset Afib - rate control with Cardizem - stopped heparin started Eliquis - can monitor on telemetry if temp/bp stable DM2 - glucose control Visit type - Emergency Visit Emergency Visit: No - New Patient This patient is new to me today: No - Critical Care Critical Care patient: Yes Total Critical Care Time (in minutes): 30 Critical Care Statement: The care of this patient involved high complexity decision making to prevent further life threatening deterioration of the patient 's condition and/or to evaluate & treat vital organ system(s) failure or risk of failure.
[2017-02-14] MEDS: oxyCODONE HCL 5 MG TABLET PO PRN ×3 (08:36→19:43)
[2017-02-14] MEDS: ACETAMINOPHEN 325 MG TABLET (FP) PO PRN ×3 (08:38→19:43)
[2017-02-14] MEDS: dilTIAZem HCL 30 MG TABLET (FP) PO SCH ×4 (09:12→22:47)
[2017-02-14] MEDS: BACITRACIN 15 GM TUBE TOPICAL OINTMENT TP SCH ×2 (09:13→22:46)
[2017-02-14] MEDS: NYSTATIN POWDER 100,000 UNITS/GM - 15 GM TOPICAL POWDER TP SCH (09:14)
[2017-02-14] MEDS: MEROPENEM 1 GM in DEXTROSE 5%-WATER 100 ML IVPB SCH ×2 (09:14→22:47)
[2017-02-14] MEDS: BUDESONIDE/FORMETEROL FUMARATE 80/4.5 mcg INHALER IH SCH ×2 (09:15→22:48)
[2017-02-14] MEDS: SILVER SULFADIAZINE 1% TOP CREAM 50 GM JAR TP SCH (09:15)
[2017-02-14] MEDS: PANTOPRAZOLE 40 MG TABLET (FP) PO SCH (09:15)
--- NOTE | 2017-02-14 09:58 | PN ---
Progress Note, Physician - Current Medication List Current Medications: Active Medications Acetaminophen (Tylenol -) 650 mg PO Q6H PRN PRN Reason: FEVER OR PAIN Last Admin: 02/14/17 08:38 Dose: 650 mg Albuterol/Ipratropium (Duoneb -) 1 amp NEB Q6H PRN PRN Reason: SHORTNESS OF BREATH Bacitracin (Bacitracin -) 1 applic TP BID LANCE Last Admin: 02/14/17 09:13 Dose: 1 applic Budesonide/Formoterol Fumarate (Symbicort 80/4.5mcg -) 2 puff IH BID LANCE Last Admin: 02/14/17 09:15 Dose: 2 puff Diltiazem HCl (Cardizem -) 30 mg PO QID LANCE Last Admin: 02/14/17 09:12 Dose: 30 mg Guaifenesin/Codeine Phosphate (Robitussin Ac -) 5 ml PO BID PRN PRN Reason: COUGHING Heparin Sodium (Porcine) (Heparin -) 1,000 unit IVPUSH PRN PRN PRN Reason: Heparin Heparin Sodium (Porcine) (Heparin -) 5,000 unit IVPUSH PRN PRN PRN Reason: Heparin Last Admin: 02/13/17 12:04 Dose: 5,000 unit Clindamycin Phosphate (Cleocin 900 Mg Premix Ivpb -) 50 mls @ 100 mls/hr IVPB Q8H-IV LANCE Last Admin: 02/14/17 09:14 Dose: 100 mls/hr Meropenem 1 gm/ Dextrose 100 mls @ 200 mls/hr IVPB BID LANCE PRN Reason: Protocol Last Admin: 02/14/17 09:14 Dose: 200 mls/hr Vancomycin HCl (Vancomycin (Pre-Docked)) 250 mls @ 166.667 mls/hr IVPB DAILY@ 1200 LANCE PRN Reason: Protocol Last Admin: 02/13/17 11:57 Dose: 166.667 mls/hr Heparin Sodium (Porcine) 25, (000 unit/ Sodium Chloride) 500 mls @ 20 mls/hr IV TITR LANCE; 1,000 UNIT/HR PRN Reason: Protocol Last Titration: 02/13/17 19:00 Dose: 1,450 unit/hr Sodium Chloride (Normal Saline -) 1,000 mls @ 100 mls/hr IV ASDIR LANCE Last Admin: 02/13/17 18:48 Dose: 100 mls/hr Insulin Aspart (Novolog Vial Sliding Scale -) 1 vial SQ ACHS LANCE PRN Reason: Protocol Last Admin: 02/13/17 22:35 Dose: Not Given Insulin Detemir (Levemir Vial) 15 units SQ HS LANCE Last Admin: 02/13/17 22:34 Dose: 15 units Nystatin (Nystop Powder -) 1 applic TP DAILY LANCE Last Admin: 02/14/17 09:14 Dose: 1 applic Oxycodone HCl (Roxicodone -) 10 mg PO Q6H PRN PRN Reason: PAIN Last Admin: 02/14/17 08:36 Dose: 10 mg Pantoprazole Sodium (Protonix -) 40 mg PO DAILY LANCE Last Admin: 02/14/17 09:15 Dose: 40 mg Silver Sulfadiazine (Silvadene -) 1 applic TP DAILY LANCE Last Admin: 02/14/17 09:15 Dose: 1 applic - Objective Vital Signs: Vital Signs Temperature 99.8 F H 02/14/17 02:00 Pulse Rate 104 H 02/14/17 08:00 Respiratory Rate 02/14/17 08:00 Blood Pressure 102/48 02/14/17 08:00 O2 Sat by Pulse Oximetry (%) 96 02/13/17 21:00 Labs: CBC, BMP 02/14/17 05:10 02/14/17 05:10 INR, PTT INR 1.54 (0.82-1.09) H 02/12/17 05:00 Problem List - Problems (1) Cellulitis Code(s): L03.90 - CELLULITIS, UNSPECIFIED Qualifiers: Site of cellulitis of extremity: lower extremity Laterality: right (2) Allergic reaction Code(s): T78.40XA - ALLERGY, UNSPECIFIED, INITIAL ENCOUNTER (3) DM2 (diabetes mellitus, type 2) Code(s): E11.9 - TYPE 2 DIABETES MELLITUS WITHOUT COMPLICATIONS Qualifiers: Diabetes mellitus complication detail: with other circulatory complications (4) Sleep apnea Code(s): G47.30 - SLEEP APNEA, UNSPECIFIED Qualifiers: Sleep apnea type: idiopathic sleep related nonobstructive alveolar hypoventilation Qualified Code(s): G47.34 - Idiopathic sleep related nonobstructive alveolar hypoventilation (5) Asthma Code(s): J45.909 - UNSPECIFIED ASTHMA, UNCOMPLICATED Qualifiers: Asthma severity: mild intermittent (6) Obesity Code(s): E66.9 - OBESITY, UNSPECIFIED Qualifiers: Obesity type: due to excess calories Body mass index: BMI 50.0-59.9 (7) NOVA (acute kidney injury) Code(s): N17.9 - ACUTE KIDNEY FAILURE, UNSPECIFIED (8) Sepsis affecting skin Code(s): A41.9 - SEPSIS, UNSPECIFIED ORGANISM
[2017-02-14] MEDS: HEPARIN - 25,000 UNIT in SODIUM CHLORIDE 495 ML IV SCH (10:49)
[2017-02-14] MEDS: VANCOMYCIN 1 GRAM (PRE-DOCKED) 250 ML IVPB SCH (12:49)
--- NOTE | 2017-02-14 13:06 | PN ---
Progress Note, Physician History of Present Illness: The patient is supine in no apparent distress. Denies chest pains, shortness of breath, palpitations. - Current Medication List Current Medications: Active Medications Acetaminophen (Tylenol -) 650 mg PO Q6H PRN PRN Reason: FEVER OR PAIN Last Admin: 02/14/17 08:38 Dose: 650 mg Albuterol/Ipratropium (Duoneb -) 1 amp NEB Q6H PRN PRN Reason: SHORTNESS OF BREATH Bacitracin (Bacitracin -) 1 applic TP BID [facility] Last Admin: 02/14/17 09:13 Dose: 1 applic Budesonide/Formoterol Fumarate (Symbicort 80/4.5mcg -) 2 puff IH BID LANCE Last Admin: 02/14/17 09:15 Dose: 2 puff Diltiazem HCl (Cardizem -) 30 mg PO QID LANCE Last Admin: 02/14/17 09:12 Dose: 30 mg Guaifenesin/Codeine Phosphate (Robitussin Ac -) 5 ml PO BID PRN PRN Reason: COUGHING Heparin Sodium (Porcine) (Heparin -) 1,000 unit IVPUSH PRN PRN PRN Reason: Heparin Heparin Sodium (Porcine) (Heparin -) 5,000 unit IVPUSH PRN PRN PRN Reason: Heparin Last Admin: 02/13/17 12:04 Dose: 5,000 unit Clindamycin Phosphate (Cleocin 900 Mg Premix Ivpb -) 50 mls @ 100 mls/hr IVPB Q8H-IV LANCE Last Admin: 02/14/17 09:14 Dose: 100 mls/hr Meropenem 1 gm/ Dextrose 100 mls @ 200 mls/hr IVPB BID LANCE PRN Reason: Protocol Last Admin: 02/14/17 09:14 Dose: 200 mls/hr Vancomycin HCl (Vancomycin (Pre-Docked)) 250 mls @ 166.667 mls/hr IVPB DAILY@ 1200 LANCE PRN Reason: Protocol Last Admin: 02/14/17 12:49 Dose: 166.667 mls/hr Heparin Sodium (Porcine) 25, (000 unit/ Sodium Chloride) 500 mls @ 20 mls/hr IV TITR LANCE; 1,000 UNIT/HR PRN Reason: Protocol Last Admin: 02/14/17 10:49 Dose: 29 mls/hr Sodium Chloride (Normal Saline -) 1,000 mls @ 100 mls/hr IV ASDIR [facility] Last Admin: 02/13/17 18:48 Dose: 100 mls/hr Insulin Aspart (Novolog Vial Sliding Scale -) 1 vial SQ ACHS LANCE PRN Reason: Protocol Last Admin: 02/14/17 12:48 Dose: 8 units Insulin Detemir (Levemir Vial) 15 units SQ HS [facility] Last Admin: 02/13/17 22:34 Dose: 15 units Nystatin (Nystop Powder -) 1 applic TP DAILY [facility] Last Admin: 02/14/17 09:14 Dose: 1 applic Oxycodone HCl (Roxicodone -) 10 mg PO Q6H PRN PRN Reason: PAIN Last Admin: 02/14/17 08:36 Dose: 10 mg Pantoprazole Sodium (Protonix -) 40 mg PO DAILY [facility] Last Admin: 02/14/17 09:15 Dose: 40 mg Silver Sulfadiazine (Silvadene -) 1 applic TP DAILY [facility] Last Admin: 02/14/17 09:15 Dose: 1 applic - Objective Vital Signs: Vital Signs Temperature 99.2 F 02/14/17 10:00 Pulse Rate 88 02/14/17 12:00 Respiratory Rate 33 H 02/14/17 12:00 Blood Pressure 99/53 02/14/17 12:00 O2 Sat by Pulse Oximetry (%) 96 02/14/17 09:00 Constitutional: Yes: No Distress, Calm, Obese Eyes: Yes: WNL HENT: Yes: WNL Neck: Yes: WNL, Supple, Trachea Midline Cardiovascular: Yes: Pulse Irregular, S1, S2 Respiratory: Yes: WNL, Regular, CTA Bilaterally Gastrointestinal: Yes: WNL, Normal Bowel Sounds, Soft, Abdomen, Obese ...Rectal Exam: Yes: Deferred Musculoskeletal: Yes: WNL Edema: Yes Edema: LLE: 1+, RLE: 1+ Peripheral Pulses WNL: Yes Integumentary: Yes: WNL Neurological: Yes: WNL Labs: CBC, BMP 02/14/17 05:10 02/14/17 05:10 INR, PTT INR 1.54 (0.82-1.09) H 02/12/17 05:00 Assessment/Plan The patient is quite stable from the cardiac standpoint. Ventricular rates are reasonably well controlled in atrial fibrillation. The patient is on heparin. Would start the relative 20 mg daily. Continue the other medications as currently. There is no need for further cardiac workup at this point. Please do not hesitate to call us PRN
--- NOTE | 2017-02-14 13:07 | PN ---
Teaching Attending Note Name of Resident: Mariano Orozco ATTENDING PHYSICIAN STATEMENT I saw and evaluated the patient. I reviewed the resident's note and discussed the case with the resident. I agree with the resident's findings and plan as documented. SUBJECTIVE: Patient seen and examined in the ICU. Fever curve is improving, but still with intermittent low grade temperature. Denies CP or SOB. AFib. OBJECTIVE: Intake & Output 02/11/17 02/12/17 02/13/17 02/14/17 23:59 23:59 23:59 23:59 Intake Total 1660 3220 4760 864 Output Total 250 1700 3000 Balance 1410 1520 1760 864 Weight 245 lb 5 oz 244 lb 11.41 oz Last Vital Signs Temp Pulse Resp BP Pulse Ox 99.2 F 88 33 H 99/53 96 02/14/17 10:00 02/14/17 12:00 02/14/17 12:00 02/14/17 12:00 02/14/17 09:00 Active Medications Acetaminophen (Tylenol -) 650 mg PO Q6H PRN PRN Reason: FEVER OR PAIN Last Admin: 02/14/17 08:38 Dose: 650 mg Albuterol/Ipratropium (Duoneb -) 1 amp NEB Q6H PRN PRN Reason: SHORTNESS OF BREATH Apixaban (Eliquis -) 5 mg PO BID LANCE Bacitracin (Bacitracin -) 1 applic TP BID ON LICENSE OF [facility] Last Admin: 02/14/17 09:13 Dose: 1 applic Budesonide/Formoterol Fumarate (Symbicort 80/4.5mcg -) 2 puff IH BID ON LICENSE OF [facility] Last Admin: 02/14/17 09:15 Dose: 2 puff Diltiazem HCl (Cardizem -) 30 mg PO QID LANCE Last Admin: 02/14/17 09:12 Dose: 30 mg Guaifenesin/Codeine Phosphate (Robitussin Ac -) 5 ml PO BID PRN PRN Reason: COUGHING Clindamycin Phosphate (Cleocin 900 Mg Premix Ivpb -) 50 mls @ 100 mls/hr IVPB Q8H-IV LANCE Last Admin: 02/14/17 09:14 Dose: 100 mls/hr Meropenem 1 gm/ Dextrose 100 mls @ 200 mls/hr IVPB BID LANCE PRN Reason: Protocol Last Admin: 02/14/17 09:14 Dose: 200 mls/hr Vancomycin HCl (Vancomycin (Pre-Docked)) 250 mls @ 166.667 mls/hr IVPB DAILY@ 1200 LANCE PRN Reason: Protocol Last Admin: 02/14/17 12:49 Dose: 166.667 mls/hr Sodium Chloride (Normal Saline -) 1,000 mls @ 100 mls/hr IV ASDIR ON LICENSE OF [facility] Last Admin: 02/13/17 18:48 Dose: 100 mls/hr Insulin Aspart (Novolog Vial Sliding Scale -) 1 vial SQ ACHS LANCE PRN Reason: Protocol Last Admin: 02/14/17 12:48 Dose: 8 units Insulin Detemir (Levemir Vial) 15 units SQ HS [facility] Last Admin: 02/13/17 22:34 Dose: 15 units Nystatin (Nystop Powder -) 1 applic TP DAILY [facility] Last Admin: 02/14/17 09:14 Dose: 1 applic Oxycodone HCl (Roxicodone -) 10 mg PO Q6H PRN PRN Reason: PAIN Last Admin: 02/14/17 08:36 Dose: 10 mg Pantoprazole Sodium (Protonix -) 40 mg PO DAILY ON [facility] OF [facility] Last Admin: 02/14/17 09:15 Dose: 40 mg Silver Sulfadiazine (Silvadene -) 1 applic TP DAILY ON [facility] OF [facility] Last Admin: 02/14/17 09:15 Dose: 1 applic Gen: less tachypneic Heart: tachycardic, irregular Lung: decreased breath sounds at the bases Abd: soft, nontender, obese Ext: + edema, less erythema Laboratory Results - last 24 hr 02/13/17 02/13/17 02/13/17 17:00 17:00 18:30 WBC 13.4 H RBC 3.23 L Hgb 9.2 L D Hct 27.5 L D MCV 85.1 MCH 28.4 MCHC 33.3 RDW 15.5 Plt Count 377 MPV 9.7 PTT (Actin FS) 34.0 Sodium Potassium Chloride Carbon Dioxide Anion Gap BUN Creatinine Creat Clearance w eGFR POC Glucometer Random Glucose Lactic Acid 1.5 Calcium Phosphorus Magnesium Total Bilirubin AST ALT Alkaline Phosphatase Total Protein Albumin Free T4 02/13/17 02/13/17 02/14/17 22:27 22:53 05:10 WBC RBC Hgb Hct MCV MCH MCHC RDW Plt Count MPV PTT (Actin FS) 41.3 H Sodium 139 Potassium 3.7 Chloride 110 H Carbon Dioxide 21 Anion Gap 8 BUN 40 H Creatinine 1.2 H D Creat Clearance w eGFR 46.99 POC Glucometer 133.28263 Random Glucose 199 H Lactic Acid Calcium 7.8 L Phosphorus 3.8 Magnesium 2.1 Total Bilirubin 0.4 AST 18 D ALT 31 Alkaline Phosphatase 127 H Total Protein 5.3 L Albumin 1.7 L Free T4 1.10 02/14/17 02/14/17 05:10 09:46 WBC 13.1 H RBC 3.18 L Hgb 8.9 L Hct 27.2 L MCV 85.4 MCH 28.1 MCHC 32.9 RDW 15.5 Plt Count 392 MPV 9.7 PTT (Actin FS) 37.8 H Sodium Potassium Chloride Carbon Dioxide Anion Gap BUN Creatinine Creat Clearance w eGFR POC Glucometer Random Glucose Lactic Acid Calcium Phosphorus Magnesium Total Bilirubin AST ALT Alkaline Phosphatase Total Protein Albumin Free T4 Problem List - Problems (1) Cellulitis Code(s): L03.90 - CELLULITIS, UNSPECIFIED Qualifiers: Qualified Code(s): L03.115 - Cellulitis of right lower limb (2) Severe sepsis Code(s): A41.9 - SEPSIS, UNSPECIFIED ORGANISM R65.20 - SEVERE SEPSIS WITHOUT SEPTIC SHOCK (3) NOVA (acute kidney injury) Code(s): N17.9 - ACUTE KIDNEY FAILURE, UNSPECIFIED (4) Lactic acidosis Code(s): E87.2 - ACIDOSIS (5) Morbid obesity Code(s): E66.01 - MORBID (SEVERE) OBESITY DUE TO EXCESS CALORIES (6) DM2 (diabetes mellitus, type 2) Code(s): E11.9 - TYPE 2 DIABETES MELLITUS WITHOUT COMPLICATIONS ASSESSMENT AND PLAN: Cellulitis Severe Sepsis Acute Kidney Injury Lactic Acidosis Atrial Fibrillation with RVR Morbid Obesity Uncontrolled Diabetes - continue antibiotics - IVF - monitor urine output, creatinine - O2 to keep SpO2 >90% - glucose control - rate control - continue anticoagulation - can monitor on telemetry Dr Andre critical care time spent in reviewing chart, evaluating patient and formulating plan 35 min
--- NOTE | 2017-02-14 14:10 | PN ---
Progress Note, Physician Chief Complaint: AWAKE, ALERT MILD DISTRESS - Current Medication List Current Medications: Active Medications Acetaminophen (Tylenol -) 650 mg PO Q6H PRN PRN Reason: FEVER OR PAIN Last Admin: 02/14/17 08:38 Dose: 650 mg Albuterol/Ipratropium (Duoneb -) 1 amp NEB Q6H PRN PRN Reason: SHORTNESS OF BREATH Apixaban (Eliquis -) 5 mg PO BID [facility] Bacitracin (Bacitracin -) 1 applic TP BID [facility] Last Admin: 02/14/17 09:13 Dose: 1 applic Budesonide/Formoterol Fumarate (Symbicort 80/4.5mcg -) 2 puff IH BID [facility] Last Admin: 02/14/17 09:15 Dose: 2 puff Diltiazem HCl (Cardizem -) 30 mg PO QID [facility] Last Admin: 02/14/17 09:12 Dose: 30 mg Guaifenesin/Codeine Phosphate (Robitussin Ac -) 5 ml PO BID PRN PRN Reason: COUGHING Clindamycin Phosphate (Cleocin 900 Mg Premix Ivpb -) 50 mls @ 100 mls/hr IVPB Q8H-IV [facility] Last Admin: 02/14/17 09:14 Dose: 100 mls/hr Meropenem 1 gm/ Dextrose 100 mls @ 200 mls/hr IVPB BID [facility] PRN Reason: Protocol Last Admin: 02/14/17 09:14 Dose: 200 mls/hr Vancomycin HCl (Vancomycin (Pre-Docked)) 250 mls @ 166.667 mls/hr IVPB DAILY@ 1200 [facility] PRN Reason: Protocol Last Admin: 02/14/17 12:49 Dose: 166.667 mls/hr Sodium Chloride (Normal Saline -) 1,000 mls @ 100 mls/hr IV ASDIR [facility] Last Admin: 02/13/17 18:48 Dose: 100 mls/hr Insulin Aspart (Novolog Vial Sliding Scale -) 1 vial SQ ACHS [facility] PRN Reason: Protocol Last Admin: 02/14/17 12:48 Dose: 8 units Insulin Detemir (Levemir Vial) 15 units SQ HS [facility] Last Admin: 02/13/17 22:34 Dose: 15 units Nystatin (Nystop Powder -) 1 applic TP DAILY [facility] Last Admin: 02/14/17 09:14 Dose: 1 applic Oxycodone HCl (Roxicodone -) 10 mg PO Q6H PRN PRN Reason: PAIN Last Admin: 02/14/17 08:36 Dose: 10 mg Pantoprazole Sodium (Protonix -) 40 mg PO DAILY [facility] Last Admin: 02/14/17 09:15 Dose: 40 mg Silver Sulfadiazine (Silvadene -) 1 applic TP DAILY [facility] Last Admin: 02/14/17 09:15 Dose: 1 applic - Objective Vital Signs: Vital Signs Temperature 99.2 F 02/14/17 10:00 Pulse Rate 88 02/14/17 12:00 Respiratory Rate 33 H 02/14/17 12:00 Blood Pressure 99/53 02/14/17 12:00 O2 Sat by Pulse Oximetry (%) 96 02/14/17 09:00 Constitutional: Yes: Mild Distress Eyes: Yes: WNL HENT: Yes: WNL Neck: Yes: WNL Cardiovascular: Yes: WNL Respiratory: Yes: WNL Gastrointestinal: Yes: WNL Genitourinary: Yes: WNL Musculoskeletal: Yes: WNL Extremities: Yes: WNL Edema: Yes Peripheral Pulses WNL: Yes Integumentary: Yes: Pressure Ulcer, Skin Tear, Venous Stasis Changes Wound/Incision: Yes: Draining, Reddened, Excoriated, Unapproximated Neurological: Yes: WNL ...Motor Strength: WNL Psychiatric: Yes: WNL Labs: CBC, BMP 02/14/17 05:10 02/14/17 05:10 INR, PTT INR 1.54 (0.82-1.09) H 02/12/17 05:00 Problem List - Problems (1) Cellulitis Code(s): L03.90 - CELLULITIS, UNSPECIFIED Qualifiers: Site of cellulitis of extremity: lower extremity Laterality: right (2) Allergic reaction Code(s): T78.40XA - ALLERGY, UNSPECIFIED, INITIAL ENCOUNTER (3) DM2 (diabetes mellitus, type 2) Code(s): E11.9 - TYPE 2 DIABETES MELLITUS WITHOUT COMPLICATIONS Qualifiers: Diabetes mellitus complication detail: with other circulatory complications (4) Sleep apnea Code(s): G47.30 - SLEEP APNEA, UNSPECIFIED Qualifiers: Sleep apnea type: idiopathic sleep related nonobstructive alveolar hypoventilation Qualified Code(s): G47.34 - Idiopathic sleep related nonobstructive alveolar hypoventilation (5) Asthma Code(s): J45.909 - UNSPECIFIED ASTHMA, UNCOMPLICATED Qualifiers: Asthma severity: mild intermittent (6) Obesity Code(s): E66.9 - OBESITY, UNSPECIFIED Qualifiers: Obesity type: due to excess calories Body mass index: BMI 50.0-59.9 (7) NOVA (acute kidney injury) Code(s): N17.9 - ACUTE KIDNEY FAILURE, UNSPECIFIED (8) Sepsis affecting skin Code(s): A41.9 - SEPSIS, UNSPECIFIED ORGANISM Assessment/Plan BP STILL RUNNING LOW IV ABX PER ID LABS REVIEWED RENAL FUNCTION IMPROVING OOB TO CHAIR WITH ASSIST
[2017-02-14] MEDS ORDERED: APIXABAN 5 MG TABLET PO SCH ×2 (14:29→22:00)
--- NOTE | 2017-02-14 15:46 | PN ---
Progress Note, Physician History of Present Illness: low grade fevers yesterday today better patient looks better - Current Medication List Current Medications: Active Medications Acetaminophen (Tylenol -) 650 mg PO Q6H PRN PRN Reason: FEVER OR PAIN Last Admin: 02/14/17 14:54 Dose: 650 mg Albuterol/Ipratropium (Duoneb -) 1 amp NEB Q6H PRN PRN Reason: SHORTNESS OF BREATH Apixaban (Eliquis -) 5 mg PO BID [facility] Bacitracin (Bacitracin -) 1 applic TP BID [facility] Last Admin: 02/14/17 09:13 Dose: 1 applic Budesonide/Formoterol Fumarate (Symbicort 80/4.5mcg -) 2 puff IH BID [facility] Last Admin: 02/14/17 09:15 Dose: 2 puff Diltiazem HCl (Cardizem -) 30 mg PO QID [facility] Last Admin: 02/14/17 14:53 Dose: 30 mg Guaifenesin/Codeine Phosphate (Robitussin Ac -) 5 ml PO BID PRN PRN Reason: COUGHING Clindamycin Phosphate (Cleocin 900 Mg Premix Ivpb -) 50 mls @ 100 mls/hr IVPB Q8H-IV [facility] Last Admin: 02/14/17 09:14 Dose: 100 mls/hr Meropenem 1 gm/ Dextrose 100 mls @ 200 mls/hr IVPB BID [facility] PRN Reason: Protocol Last Admin: 02/14/17 09:14 Dose: 200 mls/hr Vancomycin HCl (Vancomycin (Pre-Docked)) 250 mls @ 166.667 mls/hr IVPB DAILY@ 1200 [facility] PRN Reason: Protocol Last Admin: 02/14/17 12:49 Dose: 166.667 mls/hr Sodium Chloride (Normal Saline -) 1,000 mls @ 100 mls/hr IV ASDIR [facility] Last Admin: 02/13/17 18:48 Dose: 100 mls/hr Insulin Aspart (Novolog Vial Sliding Scale -) 1 vial SQ ACHS [facility] PRN Reason: Protocol Last Admin: 02/14/17 12:48 Dose: 8 units Insulin Detemir (Levemir Vial) 15 units SQ HS [facility] Last Admin: 02/13/17 22:34 Dose: 15 units Nystatin (Nystop Powder -) 1 applic TP DAILY [facility] Last Admin: 02/14/17 09:14 Dose: 1 applic Oxycodone HCl (Roxicodone -) 10 mg PO Q6H PRN PRN Reason: PAIN Last Admin: 02/14/17 14:52 Dose: 10 mg Pantoprazole Sodium (Protonix -) 40 mg PO DAILY [facility] Last Admin: 02/14/17 09:15 Dose: 40 mg Silver Sulfadiazine (Silvadene -) 1 applic TP DAILY [facility] Last Admin: 02/14/17 09:15 Dose: 1 applic - Objective Vital Signs: Vital Signs Temperature 98.4 F 02/14/17 14:00 Pulse Rate 105 H 02/14/17 14:00 Respiratory Rate 28 H 02/14/17 14:00 Blood Pressure 132/73 02/14/17 14:00 O2 Sat by Pulse Oximetry (%) 96 02/14/17 09:00 Constitutional: Yes: No Distress, Calm, Obese Cardiovascular: Yes: Regular Rate and Rhythm Respiratory: Yes: Regular, CTA Bilaterally Gastrointestinal: Yes: Normal Bowel Sounds, Soft Musculoskeletal: Yes: WNL Extremities: Yes: Erythema (improving), Other Wound/Incision: Yes: Dressing Dry and Intact Neurological: Yes: Alert, Oriented Labs: CBC, BMP 02/14/17 05:10 02/14/17 05:10 INR, PTT INR 1.54 (0.82-1.09) H 02/12/17 05:00 Assessment/Plan Problem List - Problems (1) Asthma Code(s): J45.909 - UNSPECIFIED ASTHMA, UNCOMPLICATED Qualifiers: Asthma severity: mild intermittent (2) Cellulitis Code(s): L03.90 - CELLULITIS, UNSPECIFIED Qualifiers: Site of cellulitis of extremity: lower extremity Laterality: right (3) Obesity Code(s): E66.9 - OBESITY, UNSPECIFIED Qualifiers: Obesity type: due to excess calories Body mass index: BMI 50.0-59.9 (4) Acute renal failure Code(s): N17.9 - ACUTE KIDNEY FAILURE, UNSPECIFIED (5) Chronic cellulitis Code(s): L03.90 - CELLULITIS, UNSPECIFIED (6) DM2 (diabetes mellitus, type 2) Code(s): E11.9 - TYPE 2 DIABETES MELLITUS WITHOUT COMPLICATIONS Qualifiers: Diabetes mellitus complication detail: with other circulatory complications (7) Leukocytosis Code(s): D72.829 - ELEVATED WHITE BLOOD CELL COUNT, UNSPECIFIED (8) Sepsis Code(s): A41.9 - SEPSIS, UNSPECIFIED ORGANISM Qualifiers: Sepsis type: sepsis due to unspecified organism Qualified Code(s): A41.9 - Sepsis, unspecified organism (9) Fever Code(s): R50.9 - FEVER, UNSPECIFIED patient still not out of restrepo patient still with toxic looking patient leg still erythematous and has blebs present last spike to 101 plan continue abx renal function improving await for imaging studies monitor bp continue wound care rest as per icu cc time 45 min
[2017-02-14] MEDS: APIXABAN 5 MG TABLET PO SCH ×2 (16:42→22:47)
--- NOTE | 2017-02-14 17:49 | PN ---
Progress Note, Physician History of Present Illness: Pt seen and examined at bedside. She is awake and alert. She still has leg pain. - Current Medication List Current Medications: Active Medications Acetaminophen (Tylenol -) 650 mg PO Q6H PRN PRN Reason: FEVER OR PAIN Last Admin: 02/14/17 14:54 Dose: 650 mg Albuterol/Ipratropium (Duoneb -) 1 amp NEB Q6H PRN PRN Reason: SHORTNESS OF BREATH Apixaban (Eliquis -) 5 mg PO BID [facility] Last Admin: 02/14/17 16:42 Dose: 5 mg Bacitracin (Bacitracin -) 1 applic TP BID [facility] Last Admin: 02/14/17 09:13 Dose: 1 applic Budesonide/Formoterol Fumarate (Symbicort 80/4.5mcg -) 2 puff IH BID [facility] Last Admin: 02/14/17 09:15 Dose: 2 puff Diltiazem HCl (Cardizem -) 30 mg PO QID [facility] Last Admin: 02/14/17 14:53 Dose: 30 mg Guaifenesin/Codeine Phosphate (Robitussin Ac -) 5 ml PO BID PRN PRN Reason: COUGHING Clindamycin Phosphate (Cleocin 900 Mg Premix Ivpb -) 50 mls @ 100 mls/hr IVPB Q8H-IV [facility] Last Admin: 02/14/17 09:14 Dose: 100 mls/hr Meropenem 1 gm/ Dextrose 100 mls @ 200 mls/hr IVPB BID [facility] PRN Reason: Protocol Last Admin: 02/14/17 09:14 Dose: 200 mls/hr Vancomycin HCl (Vancomycin (Pre-Docked)) 250 mls @ 166.667 mls/hr IVPB DAILY@ 1200 [facility] PRN Reason: Protocol Last Admin: 02/14/17 12:49 Dose: 166.667 mls/hr Sodium Chloride (Normal Saline -) 1,000 mls @ 100 mls/hr IV ASDIR [facility] Last Admin: 02/13/17 18:48 Dose: 100 mls/hr Insulin Aspart (Novolog Vial Sliding Scale -) 1 vial SQ ACHS [facility] PRN Reason: Protocol Last Admin: 02/14/17 12:48 Dose: 8 units Insulin Detemir (Levemir Vial) 15 units SQ HS [facility] Last Admin: 02/13/17 22:34 Dose: 15 units Nystatin (Nystop Powder -) 1 applic TP DAILY [facility] Last Admin: 02/14/17 09:14 Dose: 1 applic Oxycodone HCl (Roxicodone -) 10 mg PO Q6H PRN PRN Reason: PAIN Pantoprazole Sodium (Protonix -) 40 mg PO DAILY [facility] Last Admin: 02/14/17 09:15 Dose: 40 mg Silver Sulfadiazine (Silvadene -) 1 applic TP DAILY [facility] Last Admin: 02/14/17 09:15 Dose: 1 applic - Objective Vital Signs: Vital Signs Temperature 98.4 F 02/14/17 14:00 Pulse Rate 105 H 02/14/17 14:00 Respiratory Rate 28 H 02/14/17 14:00 Blood Pressure 132/73 02/14/17 14:00 O2 Sat by Pulse Oximetry (%) 96 02/14/17 09:00 Constitutional: Yes: Calm Eyes: Yes: Conjunctiva Clear HENT: Yes: Atraumatic Neck: Yes: Supple Cardiovascular: Yes: S1, S2 Respiratory: Yes: On Nasal O2 Gastrointestinal: Yes: Soft, Abdomen, Obese Genitourinary: Yes: WNL Extremities: Yes: Other (cellulits of leg) Edema: Yes Edema: LLE: 1+, RLE: 1+ Neurological: Yes: Oriented Psychiatric: Yes: Oriented Labs: CBC, BMP 02/14/17 05:10 02/14/17 05:10 INR, PTT INR 1.54 (0.82-1.09) H 02/12/17 05:00 - ....Imaging Chest X-ray: Report Reviewed Problem List - Problems (1) Cellulitis Code(s): L03.90 - CELLULITIS, UNSPECIFIED Qualifiers: Site of cellulitis of extremity: lower extremity Laterality: right (2) Fever Code(s): R50.9 - FEVER, UNSPECIFIED (3) Obesity Code(s): E66.9 - OBESITY, UNSPECIFIED Qualifiers: Obesity type: due to excess calories Body mass index: BMI 50.0-59.9 (4) Sepsis Code(s): A41.9 - SEPSIS, UNSPECIFIED ORGANISM Qualifiers: Sepsis type: sepsis due to unspecified organism Qualified Code(s): A41.9 - Sepsis, unspecified organism (5) NOVA (acute kidney injury) Code(s): N17.9 - ACUTE KIDNEY FAILURE, UNSPECIFIED Assessment/Plan Current Medications Generic Name Dose Route Start Last Admin Trade Name Freq PRN Reason Stop Dose Admin Acetaminophen 650 mg 02/11/17 16:42 02/14/17 14:54 Tylenol - PO 650 mg Q6H PRN Administration FEVER OR PAIN Albuterol/Ipratropium 1 amp 02/11/17 16:42 Duoneb - NEB Q6H PRN SHORTNESS OF BREATH Apixaban 5 mg 02/14/17 16:15 02/14/17 16:42 Eliquis - PO 5 mg BID [facility] Administration Bacitracin 1 applic 02/11/17 22:00 02/14/17 09:13 Bacitracin - TP 1 applic BID [facility] Administration Budesonide/Formoterol Fumarate 2 puff 02/11/17 22:00 02/14/17 09:15 Symbicort 80/4.5mcg - IH 2 puff BID [facility] Administration Diltiazem HCl 30 mg 02/13/17 14:00 02/14/17 17:47 Cardizem - PO 30 mg QID [facility] Administration Guaifenesin/Codeine Phosphate 5 ml 02/11/17 15:29 Robitussin Ac - PO BID PRN COUGHING Clindamycin Phosphate 50 mls @ 100 mls/hr 02/11/17 18:00 02/14/17 17:46 Cleocin 900 Mg Premix Ivpb - IVPB 100 mls/hr Q8H-IV [facility] Administration Meropenem 1 gm/ Dextrose 100 mls @ 200 mls/hr 02/11/17 22:00 02/14/17 09:14 IVPB 200 mls/hr BID [facility] Administration Protocol Vancomycin HCl 250 mls @ 166.667 mls/hr 02/12/17 12:00 02/14/17 12:49 Vancomycin (Pre-Docked) IVPB 166.667 mls/hr DAILY@1200 [facility] Administration Protocol Sodium Chloride 1,000 mls @ 100 mls/hr 02/13/17 18:30 02/13/17 18:48 Normal Saline - IV 100 mls/hr ASDIR [facility] Administration Insulin Aspart 1 vial 02/11/17 22:00 02/14/17 17:46 Novolog Vial Sliding Scale - SQ 2 units ACHS [facility] Administration Protocol Insulin Detemir 15 units 02/13/17 22:00 02/13/17 22:34 Levemir Vial SQ 15 units HS [facility] Administration Nystatin 1 applic 02/12/17 10:00 02/14/17 09:14 Nystop Powder - TP 1 applic DAILY [facility] Administration Oxycodone HCl 10 mg 02/14/17 17:06 Roxicodone - PO Q6H PRN PAIN Pantoprazole Sodium 40 mg 02/12/17 10:00 02/14/17 09:15 Protonix - PO 40 mg DAILY [facility] Administration Silver Sulfadiazine 1 applic 02/12/17 10:00 02/14/17 09:15 Silvadene - TP 1 applic DAILY [facility] Administration Impression 1. NOVA with worsening creatinine 2. sepsis 3. cellulitis 4. DM 5. a-fib Plan - renal function continues to improve - consider decreasing the rate of fluids - repeat labs in am - wound care - abx per ID - monitor vanco levels - con cardiac technologist - will follow Dr Epstein
[2017-02-14] MEDS: SODIUM CHLORIDE 1,000 ML IV SCH (19:42)
[2017-02-14] MEDS: INSULIN DETEMIR 100 UNITS/ML MDV SQ SCH (22:49)
[2017-02-15] MEDS: SODIUM CHLORIDE 1,000 ML IV SCH (02:53)
[2017-02-15] MEDS: CLINDAMYCIN 900 MG PREMIX IVPB 50 ML IVPB SCH ×2 (03:04→10:31)
[2017-02-15 06:06] LABS: APTT 30.3 sec (22.9-30.2); APTT 1:1 NP MIX 60 MIN INCB 27.3 sec (22.9-30.2); APTT NP CONTROL 28.8 sec (22.9-30.2)
[2017-02-15] MEDS: INSULIN SLIDING SCALE (NOVOLOG) 1 VIAL SQ SCH ×4 (06:37→22:01)
[2017-02-15] MEDS ORDERED: PT OWN MED DRAWER 7, Y5N ONE ×4 (06:42→21:55)
[2017-02-15 07:14] LABS: MCH 27.6 pg (25.7-33.7); MCHC 32.5 g/dl (32.0-36.0); MEAN CELL VOLUME 84.8 fl (80-96); MEAN PLT VOLUME 9.5 fl (7.5-11.1); PLATELET COUNT 437 K/MM3 (134-434); RDW 15.8 % (11.6-15.6); WHITE BLOOD COUNT 13.3 K/mm3 (4.0-10.0)
[2017-02-15 07:31] LABS: ANION GAP 11 (8-16); CALCIUM 8.1 mg/dL (8.5-10.1); CO2 20 mmol/L (21-32); GLUCOSE,RANDOM 167 mg/dL (74-106); MAGNESIUM 2.2 mg/dL (1.8-2.4)
[2017-02-15 07:33] LABS: CREATININE 1.1 mg/dL (0.55-1.02); PHOSPHOROUS 3.5 mg/dL (2.5-4.9)
[2017-02-15 09:52] LABS: PLATELET ESTIMATE ADEQUATE (NORMAL); TOTAL CELLS COUNTED 100
[2017-02-15] MEDS: BUDESONIDE/FORMETEROL FUMARATE 80/4.5 mcg INHALER IH SCH ×2 (10:30→22:02)
[2017-02-15] MEDS: SILVER SULFADIAZINE 1% TOP CREAM 50 GM JAR TP SCH (10:30)
[2017-02-15] MEDS: PANTOPRAZOLE 40 MG TABLET (FP) PO SCH (10:31)
[2017-02-15] MEDS: MEROPENEM 1 GM in DEXTROSE 5%-WATER 100 ML IVPB SCH ×2 (10:31→22:02)
[2017-02-15] MEDS: BACITRACIN 15 GM TUBE TOPICAL OINTMENT TP SCH ×2 (10:31→22:01)
[2017-02-15] MEDS: dilTIAZem HCL 30 MG TABLET (FP) PO SCH ×4 (10:31→22:01)
[2017-02-15] MEDS: APIXABAN 5 MG TABLET PO SCH ×2 (10:31→22:01)
[2017-02-15] MEDS: NYSTATIN POWDER 100,000 UNITS/GM - 15 GM TOPICAL POWDER TP SCH (11:00)
--- NOTE | 2017-02-15 12:45 | PN ---
Progress Note, Physician History of Present Illness: has now been afebrile for more than 24 hrs wbc still on the higher side patient starting to look much better - Current Medication List Current Medications: Active Medications Acetaminophen (Tylenol -) 650 mg PO Q6H PRN PRN Reason: FEVER OR PAIN Last Admin: 02/14/17 19:43 Dose: 650 mg Albuterol/Ipratropium (Duoneb -) 1 amp NEB Q6H PRN PRN Reason: SHORTNESS OF BREATH Apixaban (Eliquis -) 5 mg PO BID [facility] Last Admin: 02/15/17 10:31 Dose: 5 mg Bacitracin (Bacitracin -) 1 applic TP BID [facility] Last Admin: 02/15/17 10:31 Dose: 1 applic Budesonide/Formoterol Fumarate (Symbicort 80/4.5mcg -) 2 puff IH BID [facility] Last Admin: 02/15/17 10:30 Dose: 2 puff Diltiazem HCl (Cardizem -) 30 mg PO QID [facility] Last Admin: 02/15/17 10:31 Dose: 30 mg Guaifenesin/Codeine Phosphate (Robitussin Ac -) 5 ml PO BID PRN PRN Reason: COUGHING Clindamycin Phosphate (Cleocin 900 Mg Premix Ivpb -) 50 mls @ 100 mls/hr IVPB Q8H-IV [facility] Last Admin: 02/15/17 10:31 Dose: 100 mls/hr Meropenem 1 gm/ Dextrose 100 mls @ 200 mls/hr IVPB BID [facility] PRN Reason: Protocol Last Admin: 02/15/17 10:31 Dose: 200 mls/hr Vancomycin HCl (Vancomycin (Pre-Docked)) 250 mls @ 166.667 mls/hr IVPB DAILY@ 1200 [facility] PRN Reason: Protocol Last Admin: 02/14/17 12:49 Dose: 166.667 mls/hr Sodium Chloride (Normal Saline -) 1,000 mls @ 100 mls/hr IV ASDIR [facility] Last Admin: 02/15/17 02:53 Dose: 100 mls/hr Insulin Aspart (Novolog Vial Sliding Scale -) 1 vial SQ ACHS [facility] PRN Reason: Protocol Last Admin: 02/15/17 11:49 Dose: Not Given Insulin Detemir (Levemir Vial) 15 units SQ HS [facility] Last Admin: 02/14/17 22:49 Dose: 15 units Nystatin (Nystop Powder -) 1 applic TP DAILY [facility] Last Admin: 02/14/17 09:14 Dose: 1 applic Oxycodone HCl (Roxicodone -) 10 mg PO Q6H PRN PRN Reason: PAIN Last Admin: 02/14/17 19:43 Dose: 10 mg Pantoprazole Sodium (Protonix -) 40 mg PO DAILY [facility] Last Admin: 02/15/17 10:31 Dose: 40 mg Silver Sulfadiazine (Silvadene -) 1 applic TP DAILY [facility] Last Admin: 02/15/17 10:30 Dose: 1 applic - Objective Vital Signs: Vital Signs Temperature 98.4 F 02/15/17 08:00 Pulse Rate 110 H 02/15/17 08:00 Respiratory Rate 20 02/15/17 08:00 Blood Pressure 135/62 02/15/17 08:00 O2 Sat by Pulse Oximetry (%) 96 02/14/17 21:00 Constitutional: Yes: No Distress, Calm Cardiovascular: Yes: Regular Rate and Rhythm Respiratory: Yes: Regular, CTA Bilaterally Gastrointestinal: Yes: Normal Bowel Sounds, Soft Musculoskeletal: Yes: Other Extremities: Yes: Other Wound/Incision: Yes: Dressing Dry and Intact Neurological: Yes: Alert, Oriented Psychiatric: Yes: Alert, Oriented Labs: CBC, BMP 02/15/17 06:15 02/15/17 06:15 INR, PTT INR 1.54 (0.82-1.09) H 02/12/17 05:00 - ....Imaging Cat Scan: Report Reviewed, Image Reviewed Assessment/Plan Problem List - Problems (1) Asthma Code(s): J45.909 - UNSPECIFIED ASTHMA, UNCOMPLICATED Qualifiers: Asthma severity: mild intermittent (2) Cellulitis Code(s): L03.90 - CELLULITIS, UNSPECIFIED Qualifiers: Site of cellulitis of extremity: lower extremity Laterality: right (3) Obesity Code(s): E66.9 - OBESITY, UNSPECIFIED Qualifiers: Obesity type: due to excess calories Body mass index: BMI 50.0-59.9 (4) Acute renal failure Code(s): N17.9 - ACUTE KIDNEY FAILURE, UNSPECIFIED (5) Chronic cellulitis Code(s): L03.90 - CELLULITIS, UNSPECIFIED (6) DM2 (diabetes mellitus, type 2) Code(s): E11.9 - TYPE 2 DIABETES MELLITUS WITHOUT COMPLICATIONS Qualifiers: Diabetes mellitus complication detail: with other circulatory complications (7) Leukocytosis Code(s): D72.829 - ELEVATED WHITE BLOOD CELL COUNT, UNSPECIFIED (8) Sepsis Code(s): A41.9 - SEPSIS, UNSPECIFIED ORGANISM Qualifiers: Sepsis type: sepsis due to unspecified organism Qualified Code(s): A41.9 - Sepsis, unspecified organism (9) Fever Code(s): R50.9 - FEVER, UNSPECIFIED patient still not out of restrepo patient still with toxic looking patient leg still erythematous and has blebs present last spike to 101 patient starting to look better ct scan reviewed plan will stop clinda continue vanco will chack vanco level elevation of leg rest continue current mgmt
--- NOTE | 2017-02-15 14:20 | PN ---
Progress Note, Physician Chief Complaint: AWAKE ALERT MILD DISTRESS +APPETITE +BM - Current Medication List Current Medications: Active Medications Acetaminophen (Tylenol -) 650 mg PO Q6H PRN PRN Reason: FEVER OR PAIN Last Admin: 02/14/17 19:43 Dose: 650 mg Albuterol/Ipratropium (Duoneb -) 1 amp NEB Q6H PRN PRN Reason: SHORTNESS OF BREATH Apixaban (Eliquis -) 5 mg PO BID [facility] Last Admin: 02/15/17 10:31 Dose: 5 mg Bacitracin (Bacitracin -) 1 applic TP BID [facility] Last Admin: 02/15/17 10:31 Dose: 1 applic Budesonide/Formoterol Fumarate (Symbicort 80/4.5mcg -) 2 puff IH BID [facility] Last Admin: 02/15/17 10:30 Dose: 2 puff Diltiazem HCl (Cardizem -) 30 mg PO QID [facility] Last Admin: 02/15/17 10:31 Dose: 30 mg Guaifenesin/Codeine Phosphate (Robitussin Ac -) 5 ml PO BID PRN PRN Reason: COUGHING Meropenem 1 gm/ Dextrose 100 mls @ 200 mls/hr IVPB BID [facility] PRN Reason: Protocol Last Admin: 02/15/17 10:31 Dose: 200 mls/hr Sodium Chloride (Normal Saline -) 1,000 mls @ 100 mls/hr IV ASDIR [facility] Last Admin: 02/15/17 02:53 Dose: 100 mls/hr Vancomycin HCl 1,250 mg/ (Dextrose) 250 mls @ 125 mls/hr IVPB DAILY@1400 [facility] PRN Reason: Protocol Insulin Aspart (Novolog Vial Sliding Scale -) 1 vial SQ ACHS [facility] PRN Reason: Protocol Last Admin: 02/15/17 11:49 Dose: Not Given Insulin Detemir (Levemir Vial) 15 units SQ HS [facility] Last Admin: 02/14/17 22:49 Dose: 15 units Nystatin (Nystop Powder -) 1 applic TP DAILY [facility] Last Admin: 02/14/17 09:14 Dose: 1 applic Oxycodone HCl (Roxicodone -) 10 mg PO Q6H PRN PRN Reason: PAIN Last Admin: 02/14/17 19:43 Dose: 10 mg Pantoprazole Sodium (Protonix -) 40 mg PO DAILY [facility] Last Admin: 02/15/17 10:31 Dose: 40 mg Silver Sulfadiazine (Silvadene -) 1 applic TP DAILY [facility] Last Admin: 02/15/17 10:30 Dose: 1 applic - Objective Vital Signs: Vital Signs Temperature 98.4 F 02/15/17 08:00 Pulse Rate 110 H 02/15/17 08:00 Respiratory Rate 20 02/15/17 08:00 Blood Pressure 135/62 02/15/17 08:00 O2 Sat by Pulse Oximetry (%) 95 02/15/17 09:00 Constitutional: Yes: Mild Distress Eyes: Yes: WNL HENT: Yes: WNL Neck: Yes: WNL Cardiovascular: Yes: WNL Respiratory: Yes: WNL Gastrointestinal: Yes: WNL Genitourinary: Yes: WNL Musculoskeletal: Yes: Muscle Weakness Extremities: Yes: Deformity Edema: Yes Peripheral Pulses WNL: Yes Integumentary: Yes: Pressure Ulcer Wound/Incision: Yes: Dressing Dry and Intact ...Motor Strength: LLE, RLE Psychiatric: Yes: Other Labs: CBC, BMP 02/15/17 06:15 02/15/17 06:15 INR, PTT INR 1.54 (0.82-1.09) H 02/12/17 05:00 Problem List - Problems (1) Cellulitis Code(s): L03.90 - CELLULITIS, UNSPECIFIED Qualifiers: Site of cellulitis of extremity: lower extremity Laterality: right (2) Allergic reaction Code(s): T78.40XA - ALLERGY, UNSPECIFIED, INITIAL ENCOUNTER (3) DM2 (diabetes mellitus, type 2) Code(s): E11.9 - TYPE 2 DIABETES MELLITUS WITHOUT COMPLICATIONS Qualifiers: Diabetes mellitus complication detail: with other circulatory complications (4) Sleep apnea Code(s): G47.30 - SLEEP APNEA, UNSPECIFIED Qualifiers: Sleep apnea type: idiopathic sleep related nonobstructive alveolar hypoventilation Qualified Code(s): G47.34 - Idiopathic sleep related nonobstructive alveolar hypoventilation (5) Asthma Code(s): J45.909 - UNSPECIFIED ASTHMA, UNCOMPLICATED Qualifiers: Asthma severity: mild intermittent (6) Obesity Code(s): E66.9 - OBESITY, UNSPECIFIED Qualifiers: Obesity type: due to excess calories Body mass index: BMI 50.0-59.9 (7) NOVA (acute kidney injury) Code(s): N17.9 - ACUTE KIDNEY FAILURE, UNSPECIFIED (8) Sepsis affecting skin Code(s): A41.9 - SEPSIS, UNSPECIFIED ORGANISM Assessment/Plan IV ABX PER ID LABS REVIEWED RENAL FUNCTION IMPROVING OOB TO CHAIR WITH ASSIST WOUND CARE DRESSING CHANGE
[2017-02-15] MEDS: VANCOMYCIN 1 GRAM (PRE-DOCKED) 250 ML IVPB SCH (14:44)
[2017-02-15] MEDS: VANCOMYCIN 1,250 MG in DEXTROSE 5%-WATER - 250 ML IVPB SCH (14:44)
--- NOTE | 2017-02-15 18:05 | PN ---
Progress Note, Physician History of Present Illness: Pt seen and examined at bedside. She is now in the medical soriano. She denies shortness of breath. - Current Medication List Current Medications: Active Medications Acetaminophen (Tylenol -) 650 mg PO Q6H PRN PRN Reason: FEVER OR PAIN Last Admin: 02/14/17 19:43 Dose: 650 mg Albuterol/Ipratropium (Duoneb -) 1 amp NEB Q6H PRN PRN Reason: SHORTNESS OF BREATH Apixaban (Eliquis -) 5 mg PO BID [facility] Last Admin: 02/15/17 10:31 Dose: 5 mg Bacitracin (Bacitracin -) 1 applic TP BID [facility] Last Admin: 02/15/17 10:31 Dose: 1 applic Budesonide/Formoterol Fumarate (Symbicort 80/4.5mcg -) 2 puff IH BID [facility] Last Admin: 02/15/17 10:30 Dose: 2 puff Diltiazem HCl (Cardizem -) 30 mg PO QID [facility] Last Admin: 02/15/17 17:05 Dose: 30 mg Guaifenesin/Codeine Phosphate (Robitussin Ac -) 5 ml PO BID PRN PRN Reason: COUGHING Meropenem 1 gm/ Dextrose 100 mls @ 200 mls/hr IVPB BID [facility] PRN Reason: Protocol Last Admin: 02/15/17 10:31 Dose: 200 mls/hr Sodium Chloride (Normal Saline -) 1,000 mls @ 100 mls/hr IV ASDIR [facility] Last Admin: 02/15/17 02:53 Dose: 100 mls/hr Vancomycin HCl 1,250 mg/ (Dextrose) 250 mls @ 125 mls/hr IVPB DAILY@1400 [facility] PRN Reason: Protocol Last Admin: 02/15/17 14:44 Dose: 125 mls/hr Insulin Aspart (Novolog Vial Sliding Scale -) 1 vial SQ ACHS [facility] PRN Reason: Protocol Last Admin: 02/15/17 17:08 Dose: Not Given Insulin Detemir (Levemir Vial) 15 units SQ HS [facility] Last Admin: 02/14/17 22:49 Dose: 15 units Nystatin (Nystop Powder -) 1 applic TP DAILY [facility] Last Admin: 02/15/17 11:00 Dose: 1 applic Oxycodone HCl (Roxicodone -) 10 mg PO Q6H PRN PRN Reason: PAIN Last Admin: 02/14/17 19:43 Dose: 10 mg Pantoprazole Sodium (Protonix -) 40 mg PO DAILY [facility] Last Admin: 02/15/17 10:31 Dose: 40 mg Silver Sulfadiazine (Silvadene -) 1 applic TP DAILY [facility] Last Admin: 02/15/17 10:30 Dose: 1 applic - Objective Vital Signs: Vital Signs Temperature 98.2 F 02/15/17 14:43 Pulse Rate 120 H 02/15/17 14:43 Respiratory Rate 20 02/15/17 14:43 Blood Pressure 96/53 02/15/17 14:43 O2 Sat by Pulse Oximetry (%) 95 02/15/17 09:00 Constitutional: Yes: Calm Eyes: Yes: Conjunctiva Clear HENT: Yes: Atraumatic Neck: Yes: Supple Cardiovascular: Yes: S1, S2 Respiratory: Yes: CTA Bilaterally Gastrointestinal: Yes: Soft, Abdomen, Obese Genitourinary: Yes: WNL Musculoskeletal: Yes: WNL Edema: Yes Edema: LLE: 1+, RLE: 1+ Wound/Incision: Yes: Draining Labs: CBC, BMP 02/15/17 06:15 02/15/17 06:15 INR, PTT INR 1.54 (0.82-1.09) H 02/12/17 05:00 Problem List - Problems (1) Cellulitis Code(s): L03.90 - CELLULITIS, UNSPECIFIED Qualifiers: Site of cellulitis of extremity: lower extremity Laterality: right (2) Fever Code(s): R50.9 - FEVER, UNSPECIFIED (3) Obesity Code(s): E66.9 - OBESITY, UNSPECIFIED Qualifiers: Obesity type: due to excess calories Body mass index: BMI 50.0-59.9 (4) Sepsis Code(s): A41.9 - SEPSIS, UNSPECIFIED ORGANISM Qualifiers: Sepsis type: sepsis due to unspecified organism Qualified Code(s): A41.9 - Sepsis, unspecified organism (5) NOVA (acute kidney injury) Code(s): N17.9 - ACUTE KIDNEY FAILURE, UNSPECIFIED Assessment/Plan Current Medications Generic Name Dose Route Start Last Admin Trade Name Freq PRN Reason Stop Dose Admin Acetaminophen 650 mg 02/11/17 16:42 02/14/17 19:43 Tylenol - PO 650 mg Q6H PRN Administration FEVER OR PAIN Albuterol/Ipratropium 1 amp 02/11/17 16:42 Duoneb - NEB Q6H PRN SHORTNESS OF BREATH Apixaban 5 mg 02/14/17 16:15 02/15/17 10:31 Eliquis - PO 5 mg BID [facility] Administration Bacitracin 1 applic 02/11/17 22:00 02/15/17 10:31 Bacitracin - TP 1 applic BID [facility] Administration Budesonide/Formoterol Fumarate 2 puff 02/11/17 22:00 02/15/17 10:30 Symbicort 80/4.5mcg - IH 2 puff BID [facility] Administration Diltiazem HCl 30 mg 02/13/17 14:00 02/15/17 17:05 Cardizem - PO 30 mg QID [facility] Administration Guaifenesin/Codeine Phosphate 5 ml 02/11/17 15:29 Robitussin Ac - PO BID PRN COUGHING Meropenem 1 gm/ Dextrose 100 mls @ 200 mls/hr 02/11/17 22:00 02/15/17 10:31 IVPB 200 mls/hr BID [facility] Administration Protocol Sodium Chloride 1,000 mls @ 100 mls/hr 02/13/17 18:30 02/15/17 02:53 Normal Saline - IV 100 mls/hr ASDIR [facility] Administration Vancomycin HCl 1,250 mg/ 250 mls @ 125 mls/hr 02/15/17 14:00 02/15/17 14:44 Dextrose IVPB 125 mls/hr DAILY@1400 [facility] Administration Protocol Insulin Aspart 1 vial 02/11/17 22:00 02/15/17 17:08 Novolog Vial Sliding Scale - SQ Not Given ACHS [facility] Protocol Insulin Detemir 15 units 02/13/17 22:00 02/14/17 22:49 Levemir Vial SQ 15 units HS [facility] Administration Nystatin 1 applic 02/12/17 10:00 02/15/17 11:00 Nystop Powder - TP 1 applic DAILY [facility] Administration Oxycodone HCl 10 mg 02/14/17 17:06 02/14/17 19:43 Roxicodone - PO 10 mg Q6H PRN Administration PAIN Pantoprazole Sodium 40 mg 02/12/17 10:00 02/15/17 10:31 Protonix - PO 40 mg DAILY [facility] Administration Silver Sulfadiazine 1 applic 02/12/17 10:00 02/15/17 10:30 Silvadene - TP 1 applic DAILY [facility] Administration Impression 1. NOVA with worsening creatinine 2. sepsis 3. cellulitis 4. DM 5. a-fib Plan - monitor renal function off of fluids - repeat labs in am - wound care - abx per ID - monitor vanco levels - NOVA likely from sepsis and prerenal disease - will follow Dr Epstein
[2017-02-15] MEDS: oxyCODONE HCL 5 MG TABLET PO PRN (19:37)
[2017-02-15] MEDS: ACETAMINOPHEN 325 MG TABLET (FP) PO PRN (19:37)
[2017-02-15] MEDS: INSULIN DETEMIR 100 UNITS/ML MDV SQ SCH (22:01)
[2017-02-16] MEDS: INSULIN SLIDING SCALE (NOVOLOG) 1 VIAL SQ SCH ×4 (06:23→21:44)
[2017-02-16] MEDS: ACETAMINOPHEN 325 MG TABLET (FP) PO PRN ×2 (08:35→15:01)
[2017-02-16] MEDS: oxyCODONE HCL 5 MG TABLET PO PRN ×2 (08:36→15:00)
--- NOTE | 2017-02-16 09:19 | PN ---
Progress Note, Physician History of Present Illness: C/O PAIN OF LE - Current Medication List Current Medications: Active Medications Acetaminophen (Tylenol -) 650 mg PO Q6H PRN PRN Reason: FEVER OR PAIN Last Admin: 02/16/17 08:35 Dose: 650 mg Albuterol/Ipratropium (Duoneb -) 1 amp NEB Q6H PRN PRN Reason: SHORTNESS OF BREATH Apixaban (Eliquis -) 5 mg PO BID [facility] Last Admin: 02/15/17 22:01 Dose: 5 mg Bacitracin (Bacitracin -) 1 applic TP BID [facility] Last Admin: 02/15/17 22:01 Dose: 1 applic Budesonide/Formoterol Fumarate (Symbicort 80/4.5mcg -) 2 puff IH BID [facility] Last Admin: 02/15/17 22:02 Dose: 2 puff Diltiazem HCl (Cardizem -) 30 mg PO QID [facility] Last Admin: 02/15/17 22:01 Dose: Not Given Guaifenesin/Codeine Phosphate (Robitussin Ac -) 5 ml PO BID PRN PRN Reason: COUGHING Meropenem 1 gm/ Dextrose 100 mls @ 200 mls/hr IVPB BID [facility] PRN Reason: Protocol Last Admin: 02/15/17 22:02 Dose: 200 mls/hr Vancomycin HCl 1,250 mg/ (Dextrose) 250 mls @ 125 mls/hr IVPB DAILY@1400 [facility] PRN Reason: Protocol Last Admin: 02/15/17 14:44 Dose: 125 mls/hr Insulin Aspart (Novolog Vial Sliding Scale -) 1 vial SQ ACHS [facility] PRN Reason: Protocol Last Admin: 02/16/17 06:23 Dose: Not Given Insulin Detemir (Levemir Vial) 15 units SQ HS [facility] Last Admin: 02/15/17 22:01 Dose: 15 units Nystatin (Nystop Powder -) 1 applic TP DAILY [facility] Last Admin: 02/15/17 11:00 Dose: 1 applic Oxycodone HCl (Roxicodone -) 10 mg PO Q6H PRN PRN Reason: PAIN Last Admin: 02/16/17 08:36 Dose: 10 mg Pantoprazole Sodium (Protonix -) 40 mg PO DAILY [facility] Last Admin: 02/15/17 10:31 Dose: 40 mg Silver Sulfadiazine (Silvadene -) 1 applic TP DAILY [facility] Last Admin: 02/15/17 10:30 Dose: 1 applic - Objective Vital Signs: Vital Signs Temperature 98.2 F 02/16/17 08:00 Pulse Rate 110 H 02/16/17 08:00 Respiratory Rate 18 02/16/17 08:00 Blood Pressure 113/60 02/16/17 08:00 O2 Sat by Pulse Oximetry (%) 95 02/15/17 21:00 Cardiovascular: Yes: S1, S2 Respiratory: Yes: Diminished, Rhonchi Gastrointestinal: Yes: Normal Bowel Sounds, Soft Extremities: Yes: Erythema, Other (BLISTER) Edema: Yes Wound/Incision: Yes: Dressing Removed, Draining Labs: CBC, BMP 02/15/17 06:15 02/15/17 06:15 INR, PTT INR 1.54 (0.82-1.09) H 02/12/17 05:00 Problem List - Problems (1) Cellulitis Assessment/Plan: IV ABX WOUND CARE PLASTIC CONSULT Code(s): L03.90 - CELLULITIS, UNSPECIFIED Qualifiers: Site of cellulitis of extremity: lower extremity Laterality: right (2) Morbid obesity Code(s): E66.01 - MORBID (SEVERE) OBESITY DUE TO EXCESS CALORIES (3) NOVA (acute kidney injury) Assessment/Plan: IMPROVING MONITOR Code(s): N17.9 - ACUTE KIDNEY FAILURE, UNSPECIFIED (4) DM2 (diabetes mellitus, type 2) Assessment/Plan: BGM Code(s): E11.9 - TYPE 2 DIABETES MELLITUS WITHOUT COMPLICATIONS Qualifiers: Diabetes mellitus complication detail: with other circulatory complications (5) Afib Assessment/Plan: ON ELIQUIS Code(s): I48.91 - UNSPECIFIED ATRIAL FIBRILLATION
[2017-02-16] MEDS ORDERED: PT OWN MED DRAWER 7, Y5N ONE (11:08)
[2017-02-16] MEDS: dilTIAZem HCL 30 MG TABLET (FP) PO SCH ×4 (11:10→21:44)
[2017-02-16] MEDS: PANTOPRAZOLE 40 MG TABLET (FP) PO SCH (11:11)
[2017-02-16] MEDS: MEROPENEM 1 GM in DEXTROSE 5%-WATER 100 ML IVPB SCH ×2 (11:11→21:45)
[2017-02-16] MEDS: APIXABAN 5 MG TABLET PO SCH ×2 (11:11→21:44)
[2017-02-16] MEDS: NYSTATIN POWDER 100,000 UNITS/GM - 15 GM TOPICAL POWDER TP SCH (11:12)
[2017-02-16] MEDS: BACITRACIN 15 GM TUBE TOPICAL OINTMENT TP SCH ×2 (11:12→21:44)
[2017-02-16] MEDS: SILVER SULFADIAZINE 1% TOP CREAM 50 GM JAR TP SCH (11:13)
[2017-02-16] MEDS: BUDESONIDE/FORMETEROL FUMARATE 80/4.5 mcg INHALER IH SCH ×2 (11:13→21:45)
[2017-02-16] MEDS ORDERED: INSULIN (NOVOLOG) ASPART 100 UNITS/ML 10ML VIAL ONE (11:19)
--- NOTE | 2017-02-16 12:37 | PN ---
Progress Note, Physician History of Present Illness: patient improving cellulitits much better patient looking much better - Current Medication List Current Medications: Active Medications Acetaminophen (Tylenol -) 650 mg PO Q6H PRN PRN Reason: FEVER OR PAIN Last Admin: 02/16/17 08:35 Dose: 650 mg Albuterol/Ipratropium (Duoneb -) 1 amp NEB Q6H PRN PRN Reason: SHORTNESS OF BREATH Apixaban (Eliquis -) 5 mg PO BID [facility] Last Admin: 02/16/17 11:11 Dose: 5 mg Bacitracin (Bacitracin -) 1 applic TP BID [facility] Last Admin: 02/16/17 11:12 Dose: 1 applic Budesonide/Formoterol Fumarate (Symbicort 80/4.5mcg -) 2 puff IH BID [facility] Last Admin: 02/16/17 11:13 Dose: 2 puff Diltiazem HCl (Cardizem -) 30 mg PO QID [facility] Last Admin: 02/16/17 11:10 Dose: 30 mg Guaifenesin/Codeine Phosphate (Robitussin Ac -) 5 ml PO BID PRN PRN Reason: COUGHING Meropenem 1 gm/ Dextrose 100 mls @ 200 mls/hr IVPB BID [facility] PRN Reason: Protocol Last Admin: 02/16/17 11:11 Dose: 200 mls/hr Vancomycin HCl 1,250 mg/ (Dextrose) 250 mls @ 125 mls/hr IVPB DAILY@1400 [facility] PRN Reason: Protocol Last Admin: 02/15/17 14:44 Dose: 125 mls/hr Insulin Aspart (Novolog Vial Sliding Scale -) 1 vial SQ ACHS [facility] PRN Reason: Protocol Last Admin: 02/16/17 11:23 Dose: 4 units Insulin Detemir (Levemir Vial) 15 units SQ HS [facility] Last Admin: 02/15/17 22:01 Dose: 15 units Nystatin (Nystop Powder -) 1 applic TP DAILY [facility] Last Admin: 02/16/17 11:12 Dose: 1 applic Oxycodone HCl (Roxicodone -) 10 mg PO Q6H PRN PRN Reason: PAIN Last Admin: 02/16/17 08:36 Dose: 10 mg Pantoprazole Sodium (Protonix -) 40 mg PO DAILY [facility] Last Admin: 02/16/17 11:11 Dose: 40 mg Silver Sulfadiazine (Silvadene -) 1 applic TP DAILY [facility] Last Admin: 02/16/17 11:13 Dose: 1 applic - Objective Vital Signs: Vital Signs Temperature 98.2 F 02/16/17 08:00 Pulse Rate 110 H 02/16/17 08:00 Respiratory Rate 18 02/16/17 08:00 Blood Pressure 113/60 02/16/17 08:00 O2 Sat by Pulse Oximetry (%) 98 02/16/17 09:00 Constitutional: Yes: No Distress, Calm, Obese Cardiovascular: Yes: Regular Rate and Rhythm Respiratory: Yes: Regular, CTA Bilaterally Gastrointestinal: Yes: Normal Bowel Sounds, Soft Musculoskeletal: Yes: Other Extremities: Yes: Other Wound/Incision: Yes: Dressing Dry and Intact Neurological: Yes: Alert, Oriented Psychiatric: Yes: Alert, Oriented Labs: CBC, BMP 02/15/17 06:15 02/15/17 06:15 INR, PTT INR 1.54 (0.82-1.09) H 02/12/17 05:00 Assessment/Plan Problem List - Problems (1) Asthma Code(s): J45.909 - UNSPECIFIED ASTHMA, UNCOMPLICATED Qualifiers: Asthma severity: mild intermittent (2) Cellulitis Code(s): L03.90 - CELLULITIS, UNSPECIFIED Qualifiers: Site of cellulitis of extremity: lower extremity Laterality: right (3) Obesity Code(s): E66.9 - OBESITY, UNSPECIFIED Qualifiers: Obesity type: due to excess calories Body mass index: BMI 50.0-59.9 (4) Acute renal failure Code(s): N17.9 - ACUTE KIDNEY FAILURE, UNSPECIFIED (5) Chronic cellulitis Code(s): L03.90 - CELLULITIS, UNSPECIFIED (6) DM2 (diabetes mellitus, type 2) Code(s): E11.9 - TYPE 2 DIABETES MELLITUS WITHOUT COMPLICATIONS Qualifiers: Diabetes mellitus complication detail: with other circulatory complications (7) Leukocytosis Code(s): D72.829 - ELEVATED WHITE BLOOD CELL COUNT, UNSPECIFIED (8) Sepsis Code(s): A41.9 - SEPSIS, UNSPECIFIED ORGANISM Qualifiers: Sepsis type: sepsis due to unspecified organism Qualified Code(s): A41.9 - Sepsis, unspecified organism (9) Fever Code(s): R50.9 - FEVER, UNSPECIFIED patient still not out of restrepo patient still with toxic looking patient leg still erythematous and has blebs present last spike to 101 patient starting to look better ct scan reviewed plan continue abx wound care elevation of legs once better will ask to do physio
--- NOTE | 2017-02-16 13:27 | PN ---
Progress Note (short form) - Note Progress Note: RENAL Pt is awake and alert her main complaint is pain on her left thigh has refused iv since she was making a lot of urine Last Vital Signs Temp Pulse Resp BP Pulse Ox 98.2 F 110 H 18 113/60 98 02/16/17 08:00 02/16/17 08:00 02/16/17 08:00 02/16/17 08:00 02/16/17 09:00 obese lying flat comfortably lungs clear cvs s1s2 rr abd soft, nontender ext +edema, bilaterally, has some dressings, lymphedema neuro a+ox3 CBC, BMP 02/15/17 06:15 02/15/17 06:15 Current Medications Generic Name Dose Route Start Last Admin Trade Name Freq PRN Reason Stop Dose Admin Acetaminophen 650 mg 02/11/17 16:42 02/16/17 08:35 Tylenol - PO 650 mg Q6H PRN Administration FEVER OR PAIN Albuterol/Ipratropium 1 amp 02/11/17 16:42 Duoneb - NEB Q6H PRN SHORTNESS OF BREATH Apixaban 5 mg 02/14/17 16:15 02/16/17 11:11 Eliquis - PO 5 mg BID [facility] Administration Bacitracin 1 applic 02/11/17 22:00 02/16/17 11:12 Bacitracin - TP 1 applic BID [facility] Administration Budesonide/Formoterol Fumarate 2 puff 02/11/17 22:00 02/16/17 11:13 Symbicort 80/4.5mcg - IH 2 puff BID [facility] Administration Diltiazem HCl 30 mg 02/13/17 14:00 02/16/17 11:10 Cardizem - PO 30 mg QID [facility] Administration Guaifenesin/Codeine Phosphate 5 ml 02/11/17 15:29 Robitussin Ac - PO BID PRN COUGHING Meropenem 1 gm/ Dextrose 100 mls @ 200 mls/hr 02/11/17 22:00 02/16/17 11:11 IVPB 200 mls/hr BID [facility] Administration Protocol Vancomycin HCl 1,250 mg/ 250 mls @ 125 mls/hr 02/15/17 14:00 02/15/17 14:44 Dextrose IVPB 125 mls/hr DAILY@1400 [facility] Administration Protocol Insulin Aspart 1 vial 02/11/17 22:00 02/16/17 11:23 Novolog Vial Sliding Scale - SQ 4 units ACHS [facility] Administration Protocol Insulin Detemir 15 units 02/13/17 22:00 02/15/17 22:01 Levemir Vial SQ 15 units HS [facility] Administration Nystatin 1 applic 02/12/17 10:00 02/16/17 11:12 Nystop Powder - TP 1 applic DAILY [facility] Administration Oxycodone HCl 10 mg 02/14/17 17:06 02/16/17 08:36 Roxicodone - PO 10 mg Q6H PRN Administration PAIN Pantoprazole Sodium 40 mg 02/12/17 10:00 02/16/17 11:11 Protonix - PO 40 mg DAILY [facility] Administration Silver Sulfadiazine 1 applic 02/12/17 10:00 02/16/17 11:13 Silvadene - TP 1 applic DAILY [facility] Administration Impression 1. NOVA with improving creatinine 2. sepsis 3. cellulitis 4. DM 5. a-fib 6 significant edema 7. ?sunburn that became infected Plan continue antibiotics follow levels keep off fluids and repeat her labs [facility]
[2017-02-16] MEDS: VANCOMYCIN 1,250 MG in DEXTROSE 5%-WATER - 250 ML IVPB SCH (14:56)
[2017-02-16] MEDS: INSULIN DETEMIR 100 UNITS/ML MDV SQ SCH (21:46)
[2017-02-17] MEDS: ACETAMINOPHEN 325 MG TABLET (FP) PO PRN ×2 (01:45→17:07)
[2017-02-17] MEDS: INSULIN SLIDING SCALE (NOVOLOG) 1 VIAL SQ SCH ×4 (06:13→21:33)
[2017-02-17] MEDS: MEROPENEM 1 GM in DEXTROSE 5%-WATER 100 ML IVPB SCH ×2 (09:45→21:33)
[2017-02-17] MEDS: PANTOPRAZOLE 40 MG TABLET (FP) PO SCH (09:45)
[2017-02-17] MEDS: dilTIAZem HCL 30 MG TABLET (FP) PO SCH ×4 (09:45→21:32)
[2017-02-17] MEDS: APIXABAN 5 MG TABLET PO SCH ×2 (09:45→21:32)
[2017-02-17] MEDS: SILVER SULFADIAZINE 1% TOP CREAM 50 GM JAR TP SCH (09:48)
[2017-02-17] MEDS: BUDESONIDE/FORMETEROL FUMARATE 80/4.5 mcg INHALER IH SCH ×2 (09:48→21:39)
[2017-02-17] MEDS: NYSTATIN POWDER 100,000 UNITS/GM - 15 GM TOPICAL POWDER TP SCH (09:48)
[2017-02-17] MEDS: BACITRACIN 15 GM TUBE TOPICAL OINTMENT TP SCH ×2 (09:49→21:32)
--- NOTE | 2017-02-17 10:25 | PN ---
Progress Note (short form) - Note Progress Note: RENAL Pt is awake and alert had a fever last night but may have been due to high ambient temp Last Vital Signs Temp Pulse Resp BP Pulse Ox 98.3 F 97 H 20 142/99 98 02/17/17 06:12 02/17/17 06:12 02/17/17 06:12 02/17/17 06:12 02/17/17 08:41 obese lying flat comfortably lungs clear cvs s1s2 rr abd soft, nontender ext +edema, bilaterally, has some dressings, lymphedema neuro a+ox3 CBC, BMP 02/15/17 06:15 02/15/17 06:15 Current Medications Generic Name Dose Route Start Last Admin Trade Name Freq PRN Reason Stop Dose Admin Acetaminophen 650 mg 02/11/17 16:42 02/17/17 01:45 Tylenol - PO 650 mg Q6H PRN Administration FEVER OR PAIN Apixaban 5 mg 02/14/17 16:15 02/17/17 09:45 Eliquis - PO 5 mg BID [facility] Administration Bacitracin 1 applic 02/11/17 22:00 02/17/17 09:49 Bacitracin - TP 1 applic BID [facility] Administration Budesonide/Formoterol Fumarate 2 puff 02/11/17 22:00 02/17/17 09:48 Symbicort 80/4.5mcg - IH 2 puff BID [facility] Administration Diltiazem HCl 30 mg 02/13/17 14:00 02/17/17 09:45 Cardizem - PO 30 mg QID [facility] Administration Guaifenesin/Codeine Phosphate 5 ml 02/11/17 15:29 Robitussin Ac - PO BID PRN COUGHING Meropenem 1 gm/ Dextrose 100 mls @ 200 mls/hr 02/11/17 22:00 02/17/17 09:45 IVPB 200 mls/hr BID [facility] Administration Protocol Vancomycin HCl 1,250 mg/ 250 mls @ 125 mls/hr 02/15/17 14:00 02/16/17 14:56 Dextrose IVPB 125 mls/hr DAILY@1400 [facility] Administration Protocol Insulin Aspart 1 vial 02/11/17 22:00 02/17/17 06:13 Novolog Vial Sliding Scale - SQ Not Given ACHS [facility] Protocol Insulin Detemir 15 units 02/13/17 22:00 02/16/17 21:46 Levemir Vial SQ 15 units HS [facility] Administration Nystatin 1 applic 02/12/17 10:00 02/17/17 09:48 Nystop Powder - TP 1 applic DAILY [facility] Administration Oxycodone HCl 10 mg 02/14/17 17:06 02/16/17 15:00 Roxicodone - PO 10 mg Q6H PRN Administration PAIN Pantoprazole Sodium 40 mg 02/12/17 10:00 02/17/17 09:45 Protonix - PO 40 mg DAILY [facility] Administration Silver Sulfadiazine 1 applic 02/12/17 10:00 02/17/17 09:48 Silvadene - TP 1 applic DAILY [facility] Administration Impression 1. NOVA with improving creatinine 2. sepsis 3. cellulitis 4. DM 5. a-fib 6 significant edema 7. ?sunburn that became infected Plan continue antibiotics follow levels keep off fluids and repeat her labs [facility]
[2017-02-17 10:54] LABS: MCH 27.7 pg (25.7-33.7); MCHC 32.3 g/dl (32.0-36.0); MEAN CELL VOLUME 85.7 fl (80-96); MEAN PLT VOLUME 9.1 fl (7.5-11.1); PLATELET COUNT 637 K/MM3 (134-434); WHITE BLOOD COUNT 15.1 K/mm3 (4.0-10.0)
[2017-02-17 11:20] LABS: ALBUMIN 2.3 g/dl (3.4-5.0); ANION GAP 8 (8-16); BILIRUBIN,TOTAL 0.4 mg/dL (0.2-1.0); CALCIUM 8.7 mg/dL (8.5-10.1); CO2 24 mmol/L (21-32); GLUCOSE,RANDOM 238 mg/dL (74-106); SGOT/AST 19 U/L (15-37); SGPT/ALT 34 U/L (12-78); TOT PROT 6.7 g/dl (6.4-8.2)
[2017-02-17 11:21] LABS: ALK PHOS 119 U/L (45-117)
[2017-02-17 11:23] LABS: BASOPHIL %. 1 % (0-2.0); METAMYELOCYTE 1 % (0-2); PLATELET ESTIMATE INCREASED (NORMAL); TOTAL CELLS COUNTED 100
--- NOTE | 2017-02-17 11:56 | PN ---
Progress Note, Physician History of Present Illness: C/O PAIN OF LE - Current Medication List Current Medications: Active Medications Acetaminophen (Tylenol -) 650 mg PO Q6H PRN PRN Reason: FEVER OR PAIN Last Admin: 02/17/17 01:45 Dose: 650 mg Apixaban (Eliquis -) 5 mg PO BID [facility] Last Admin: 02/17/17 09:45 Dose: 5 mg Bacitracin (Bacitracin -) 1 applic TP BID [facility] Last Admin: 02/17/17 09:49 Dose: 1 applic Budesonide/Formoterol Fumarate (Symbicort 80/4.5mcg -) 2 puff IH BID [facility] Last Admin: 02/17/17 09:48 Dose: 2 puff Diltiazem HCl (Cardizem -) 30 mg PO QID [facility] Last Admin: 02/17/17 09:45 Dose: 30 mg Guaifenesin/Codeine Phosphate (Robitussin Ac -) 5 ml PO BID PRN PRN Reason: COUGHING Meropenem 1 gm/ Dextrose 100 mls @ 200 mls/hr IVPB BID [facility] PRN Reason: Protocol Last Admin: 02/17/17 09:45 Dose: 200 mls/hr Vancomycin HCl 1,250 mg/ (Dextrose) 250 mls @ 125 mls/hr IVPB DAILY@1400 [facility] PRN Reason: Protocol Last Admin: 02/16/17 14:56 Dose: 125 mls/hr Insulin Aspart (Novolog Vial Sliding Scale -) 1 vial SQ ACHS [facility] PRN Reason: Protocol Last Admin: 02/17/17 06:13 Dose: Not Given Insulin Detemir (Levemir Vial) 15 units SQ HS [facility] Last Admin: 02/16/17 21:46 Dose: 15 units Nystatin (Nystop Powder -) 1 applic TP DAILY [facility] Last Admin: 02/17/17 09:48 Dose: 1 applic Oxycodone HCl (Roxicodone -) 10 mg PO Q6H PRN PRN Reason: PAIN Last Admin: 02/16/17 15:00 Dose: 10 mg Pantoprazole Sodium (Protonix -) 40 mg PO DAILY [facility] Last Admin: 02/17/17 09:45 Dose: 40 mg Silver Sulfadiazine (Silvadene -) 1 applic TP DAILY [facility] Last Admin: 02/17/17 09:48 Dose: 1 applic - Objective Vital Signs: Vital Signs Temperature 98.3 F 02/17/17 06:12 Pulse Rate 97 H 02/17/17 06:12 Respiratory Rate 20 02/17/17 06:12 Blood Pressure 142/99 02/17/17 06:12 O2 Sat by Pulse Oximetry (%) 98 02/17/17 08:41 Edema: Yes Wound/Incision: Yes: Draining, Bleeding, Excoriated Labs: CBC, BMP 02/17/17 10:49 02/17/17 10:49 INR, PTT INR 1.54 (0.82-1.09) H 02/12/17 05:00 Problem List - Problems (1) Cellulitis Assessment/Plan: IV ABX WOUND CARE PLASTIC CONSULT Code(s): L03.90 - CELLULITIS, UNSPECIFIED Qualifiers: Site of cellulitis of extremity: lower extremity Laterality: right (2) Morbid obesity Code(s): E66.01 - MORBID (SEVERE) OBESITY DUE TO EXCESS CALORIES (3) NOVA (acute kidney injury) Assessment/Plan: IMPROVING MONITOR Code(s): N17.9 - ACUTE KIDNEY FAILURE, UNSPECIFIED (4) DM2 (diabetes mellitus, type 2) Assessment/Plan: BGM Code(s): E11.9 - TYPE 2 DIABETES MELLITUS WITHOUT COMPLICATIONS Qualifiers: Diabetes mellitus complication detail: with other circulatory complications (5) Afib Assessment/Plan: ON ELIQUIS Code(s): I48.91 - UNSPECIFIED ATRIAL FIBRILLATION
[2017-02-17] MEDS ORDERED: INSULIN (NOVOLOG) ASPART 100 UNITS/ML 10ML VIAL ONE ×2 (11:59→21:06)
--- NOTE | 2017-02-17 12:37 | PN ---
Progress Note, Physician History of Present Illness: improving left has improved rt still bad wbc has gone up - Current Medication List Current Medications: Active Medications Acetaminophen (Tylenol -) 650 mg PO Q6H PRN PRN Reason: FEVER OR PAIN Last Admin: 02/17/17 01:45 Dose: 650 mg Apixaban (Eliquis -) 5 mg PO BID [facility] Last Admin: 02/17/17 09:45 Dose: 5 mg Bacitracin (Bacitracin -) 1 applic TP BID [facility] Last Admin: 02/17/17 09:49 Dose: 1 applic Budesonide/Formoterol Fumarate (Symbicort 80/4.5mcg -) 2 puff IH BID [facility] Last Admin: 02/17/17 09:48 Dose: 2 puff Diltiazem HCl (Cardizem -) 30 mg PO QID [facility] Last Admin: 02/17/17 09:45 Dose: 30 mg Guaifenesin/Codeine Phosphate (Robitussin Ac -) 5 ml PO BID PRN PRN Reason: COUGHING Meropenem 1 gm/ Dextrose 100 mls @ 200 mls/hr IVPB BID [facility] PRN Reason: Protocol Last Admin: 02/17/17 09:45 Dose: 200 mls/hr Vancomycin HCl 1,250 mg/ (Dextrose) 250 mls @ 125 mls/hr IVPB DAILY@1400 [facility] PRN Reason: Protocol Last Admin: 02/16/17 14:56 Dose: 125 mls/hr Insulin Aspart (Novolog Vial Sliding Scale -) 1 vial SQ ACHS [facility] PRN Reason: Protocol Last Admin: 02/17/17 12:00 Dose: 2 units Insulin Detemir (Levemir Vial) 15 units SQ HS [facility] Last Admin: 02/16/17 21:46 Dose: 15 units Nystatin (Nystop Powder -) 1 applic TP DAILY [facility] Last Admin: 02/17/17 09:48 Dose: 1 applic Oxycodone HCl (Roxicodone -) 10 mg PO Q6H PRN PRN Reason: PAIN Last Admin: 02/16/17 15:00 Dose: 10 mg Pantoprazole Sodium (Protonix -) 40 mg PO DAILY [facility] Last Admin: 02/17/17 09:45 Dose: 40 mg Silver Sulfadiazine (Silvadene -) 1 applic TP DAILY [facility] Last Admin: 02/17/17 09:48 Dose: 1 applic - Objective Vital Signs: Vital Signs Temperature 98.3 F 02/17/17 06:12 Pulse Rate 97 H 02/17/17 06:12 Respiratory Rate 20 02/17/17 06:12 Blood Pressure 142/99 02/17/17 06:12 O2 Sat by Pulse Oximetry (%) 98 02/17/17 08:41 Constitutional: Yes: No Distress, Calm Cardiovascular: Yes: Regular Rate and Rhythm Respiratory: Yes: Regular, CTA Bilaterally Gastrointestinal: Yes: Normal Bowel Sounds, Soft Musculoskeletal: Yes: Other Extremities: Yes: Other Wound/Incision: Yes: Dressing Dry and Intact Neurological: Yes: Alert, Oriented Psychiatric: Yes: Alert, Oriented Labs: CBC, BMP 02/17/17 10:49 02/17/17 10:49 INR, PTT INR 1.54 (0.82-1.09) H 02/12/17 05:00 Assessment/Plan Problem List - Problems (1) Asthma Code(s): J45.909 - UNSPECIFIED ASTHMA, UNCOMPLICATED Qualifiers: Asthma severity: mild intermittent (2) Cellulitis Code(s): L03.90 - CELLULITIS, UNSPECIFIED Qualifiers: Site of cellulitis of extremity: lower extremity Laterality: right (3) Obesity Code(s): E66.9 - OBESITY, UNSPECIFIED Qualifiers: Obesity type: due to excess calories Body mass index: BMI 50.0-59.9 (4) Acute renal failure Code(s): N17.9 - ACUTE KIDNEY FAILURE, UNSPECIFIED (5) Chronic cellulitis Code(s): L03.90 - CELLULITIS, UNSPECIFIED (6) DM2 (diabetes mellitus, type 2) Code(s): E11.9 - TYPE 2 DIABETES MELLITUS WITHOUT COMPLICATIONS Qualifiers: Diabetes mellitus complication detail: with other circulatory complications (7) Leukocytosis Code(s): D72.829 - ELEVATED WHITE BLOOD CELL COUNT, UNSPECIFIED (8) Sepsis Code(s): A41.9 - SEPSIS, UNSPECIFIED ORGANISM Qualifiers: Sepsis type: sepsis due to unspecified organism Qualified Code(s): A41.9 - Sepsis, unspecified organism (9) Fever Code(s): R50.9 - FEVER, UNSPECIFIED patient still not out of rest[place] patient still with toxic looking patient leg still erythematous and has blebs present last spike to 101 patient starting to look better ct scan reviewed plan continue abx wound care elevation of legs once better will ask to do physio
[2017-02-17] MEDS: VANCOMYCIN 1,250 MG in DEXTROSE 5%-WATER - 250 ML IVPB SCH (14:27)
[2017-02-17] MEDS ORDERED: PT OWN MED DRAWER 7, Y5N ONE ×2 (16:53→21:05)
[2017-02-17] MEDS: oxyCODONE HCL 5 MG TABLET PO PRN (17:08)
[2017-02-17] MEDS: INSULIN DETEMIR 100 UNITS/ML MDV SQ SCH (21:33)
[2017-02-18] MEDS ORDERED: PT OWN MED DRAWER 7, Y5N ONE ×3 (00:14→21:53)
[2017-02-18] MEDS: ACETAMINOPHEN 325 MG TABLET (FP) PO PRN ×2 (04:53→18:04)
[2017-02-18] MEDS: INSULIN SLIDING SCALE (NOVOLOG) 1 VIAL SQ SCH ×4 (06:27→22:05)
[2017-02-18 08:35] LABS: EOSINOPHIL 4.8 % (0-4.5); MCH 27.4 pg (25.7-33.7); MCHC 32.2 g/dl (32.0-36.0); MEAN CELL VOLUME 85.1 fl (80-96); MEAN PLT VOLUME 9.2 fl (7.5-11.1); NEUTROPHILS 81.5 % (42.8-82.8); PLATELET COUNT 530 K/MM3 (134-434); RDW 15.9 % (11.6-15.6); WHITE BLOOD COUNT 13.8 K/mm3 (4.0-10.0)
[2017-02-18 09:06] LABS: ANION GAP 8 (8-16); CALCIUM 8.4 mg/dL (8.5-10.1); CO2 23 mmol/L (21-32); CREATININE 0.8 mg/dL (0.55-1.02); GLUCOSE,RANDOM 197 mg/dL (74-106)
[2017-02-18] MEDS ORDERED: INSULIN (NOVOLOG) ASPART 100 UNITS/ML 10ML VIAL ONE ×2 (10:46→16:39)
[2017-02-18] MEDS: APIXABAN 5 MG TABLET PO SCH ×2 (10:55→22:04)
[2017-02-18] MEDS: dilTIAZem HCL 30 MG TABLET (FP) PO SCH ×4 (10:55→22:04)
[2017-02-18] MEDS: PANTOPRAZOLE 40 MG TABLET (FP) PO SCH (10:55)
[2017-02-18] MEDS: BUDESONIDE/FORMETEROL FUMARATE 80/4.5 mcg INHALER IH SCH ×2 (10:55→22:03)
[2017-02-18] MEDS: NYSTATIN POWDER 100,000 UNITS/GM - 15 GM TOPICAL POWDER TP SCH (10:56)
[2017-02-18] MEDS: BACITRACIN 15 GM TUBE TOPICAL OINTMENT TP SCH ×2 (10:57→22:05)
[2017-02-18] MEDS: SILVER SULFADIAZINE 1% TOP CREAM 50 GM JAR TP SCH (10:58)
[2017-02-18] MEDS: MEROPENEM 1 GM in DEXTROSE 5%-WATER 100 ML IVPB SCH ×2 (11:16→22:04)
--- NOTE | 2017-02-18 11:36 | PN ---
Progress Note (short form) - Note Progress Note: No acute events overnight. No CP or SOB. Still with some LE discomfort. OBJECTIVE: Intake & Output 02/15/17 02/16/17 02/17/17 02/18/17 23:59 23:59 23:59 23:59 Intake Total 6509 007 4093 Output Total 600 Balance 1550 850 598 Weight 309 lb 4.8 oz 248 lb 2 oz 304 lb 9 oz 300 lb 3.2 oz Last Vital Signs Temp Pulse Resp BP Pulse Ox 99.2 F 108 H 18 102/58 98 02/18/17 05:50 02/18/17 05:50 02/18/17 05:50 02/18/17 05:50 02/17/17 21:00 Active Medications Acetaminophen (Tylenol -) 650 mg PO Q6H PRN PRN Reason: FEVER OR PAIN Last Admin: 02/18/17 04:53 Dose: 650 mg Apixaban (Eliquis -) 5 mg PO BID [facility] Last Admin: 02/18/17 10:55 Dose: 5 mg Bacitracin (Bacitracin -) 1 applic TP BID [facility] Last Admin: 02/18/17 10:57 Dose: 1 applic Budesonide/Formoterol Fumarate (Symbicort 80/4.5mcg -) 2 puff IH BID [facility] Last Admin: 02/18/17 10:55 Dose: 2 puff Diltiazem HCl (Cardizem -) 30 mg PO QID [facility] Last Admin: 02/18/17 10:55 Dose: 30 mg Meropenem 1 gm/ Dextrose 100 mls @ 200 mls/hr IVPB BID [facility] PRN Reason: Protocol Last Admin: 02/18/17 11:16 Dose: 200 mls/hr Vancomycin HCl 1,250 mg/ (Dextrose) 250 mls @ 125 mls/hr IVPB DAILY@1400 [facility] PRN Reason: Protocol Last Admin: 02/17/17 14:27 Dose: 125 mls/hr Insulin Aspart (Novolog Vial Sliding Scale -) 1 vial SQ ACHS [facility] PRN Reason: Protocol Last Admin: 02/18/17 11:15 Dose: 2 units Insulin Detemir (Levemir Vial) 15 units SQ HS [facility] Last Admin: 02/17/17 21:33 Dose: 15 units Nystatin (Nystop Powder -) 1 applic TP DAILY [facility] Last Admin: 02/18/17 10:56 Dose: 1 applic Pantoprazole Sodium (Protonix -) 40 mg PO DAILY [facility] Last Admin: 02/18/17 10:55 Dose: 40 mg Silver Sulfadiazine (Silvadene -) 1 applic TP DAILY [facility] Last Admin: 02/18/17 10:58 Dose: 1 applic Gen: NAD Heart: Irregular Lung: decreased breath sounds at the bases Abd: soft, nontender, obese Ext: + edema, less erythema Laboratory Results - last 24 hr 02/17/17 02/17/17 02/17/17 11:56 17:02 21:27 WBC RBC Hgb Hct MCV MCH MCHC RDW Plt Count MPV Neutrophils % Lymphocytes % Monocytes % Eosinophils % Basophils % Sodium Potassium Chloride Carbon Dioxide Anion Gap BUN Creatinine POC Glucometer 237 206 206 Random Glucose Calcium 02/18/17 02/18/17 02/18/17 06:24 07:30 07:30 WBC 13.8 H RBC 3.59 L Hgb 9.8 L D Hct 30.5 L MCV 85.1 MCH 27.4 MCHC 32.2 RDW 15.9 H Plt Count 530 H MPV 9.2 Neutrophils % 81.5 Lymphocytes % 8.0 D Monocytes % 4.7 Eosinophils % 4.8 H Basophils % 1.0 Sodium 140 Potassium 4.6 Chloride 109 H Carbon Dioxide 23 Anion Gap 8 BUN 17 D Creatinine 0.8 POC Glucometer 171 Random Glucose 197 H Calcium 8.4 L Problem List - Problems (1) Cellulitis Code(s): L03.90 - CELLULITIS, UNSPECIFIED Qualifiers: Qualified Code(s): L03.115 - Cellulitis of right lower limb (2) Severe sepsis Code(s): A41.9 - SEPSIS, UNSPECIFIED ORGANISM R65.20 - SEVERE SEPSIS WITHOUT SEPTIC SHOCK (3) NOVA (acute kidney injury) Code(s): N17.9 - ACUTE KIDNEY FAILURE, UNSPECIFIED (4) Lactic acidosis Code(s): E87.2 - ACIDOSIS (5) Morbid obesity Code(s): E66.01 - MORBID (SEVERE) OBESITY DUE TO EXCESS CALORIES (6) DM2 (diabetes mellitus, type 2) Code(s): E11.9 - TYPE 2 DIABETES MELLITUS WITHOUT COMPLICATIONS ASSESSMENT AND PLAN: Cellulitis Severe Sepsis Acute Kidney Injury Lactic Acidosis Atrial Fibrillation with RVR Morbid Obesity Uncontrolled Diabetes - ABX per ID - monitor urine output, creatinine - O2 to keep SpO2 >90% - glucose control - rate control - AC Dr Andre
--- NOTE | 2017-02-18 13:01 | PN ---
Progress Note, Physician History of Present Illness: improving patients rt leg today looks much better left leg still not that good patient was able to bear weight - Current Medication List Current Medications: Active Medications Acetaminophen (Tylenol -) 650 mg PO Q6H PRN PRN Reason: FEVER OR PAIN Last Admin: 02/18/17 04:53 Dose: 650 mg Apixaban (Eliquis -) 5 mg PO BID [facility] Last Admin: 02/18/17 10:55 Dose: 5 mg Bacitracin (Bacitracin -) 1 applic TP BID [facility] Last Admin: 02/18/17 10:57 Dose: 1 applic Budesonide/Formoterol Fumarate (Symbicort 80/4.5mcg -) 2 puff IH BID [facility] Last Admin: 02/18/17 10:55 Dose: 2 puff Diltiazem HCl (Cardizem -) 30 mg PO QID [facility] Last Admin: 02/18/17 10:55 Dose: 30 mg Meropenem 1 gm/ Dextrose 100 mls @ 200 mls/hr IVPB BID [facility] PRN Reason: Protocol Last Admin: 02/18/17 11:16 Dose: 200 mls/hr Vancomycin HCl 1,250 mg/ (Dextrose) 250 mls @ 125 mls/hr IVPB DAILY@1400 [facility] PRN Reason: Protocol Last Admin: 02/17/17 14:27 Dose: 125 mls/hr Insulin Aspart (Novolog Vial Sliding Scale -) 1 vial SQ ACHS [facility] PRN Reason: Protocol Last Admin: 02/18/17 11:15 Dose: 2 units Insulin Detemir (Levemir Vial) 15 units SQ HS [facility] Last Admin: 02/17/17 21:33 Dose: 15 units Nystatin (Nystop Powder -) 1 applic TP DAILY [facility] Last Admin: 02/18/17 10:56 Dose: 1 applic Pantoprazole Sodium (Protonix -) 40 mg PO DAILY [facility] Last Admin: 02/18/17 10:55 Dose: 40 mg Silver Sulfadiazine (Silvadene -) 1 applic TP DAILY [facility] Last Admin: 02/18/17 10:58 Dose: 1 applic - Objective Vital Signs: Vital Signs Temperature 99.2 F 02/18/17 05:50 Pulse Rate 108 H 02/18/17 05:50 Respiratory Rate 18 02/18/17 05:50 Blood Pressure 102/58 02/18/17 05:50 O2 Sat by Pulse Oximetry (%) 98 02/17/17 21:00 Constitutional: Yes: No Distress, Calm, Obese Cardiovascular: Yes: Regular Rate and Rhythm Respiratory: Yes: Regular, CTA Bilaterally Gastrointestinal: Yes: Normal Bowel Sounds, Soft Musculoskeletal: Yes: Other Extremities: Yes: Other (left side still with blebs and erythema) Neurological: Yes: Alert, Oriented Psychiatric: Yes: Alert, Oriented Labs: CBC, BMP 02/18/17 07:30 02/18/17 07:30 INR, PTT INR 1.54 (0.82-1.09) H 02/12/17 05:00 Assessment/Plan Problem List - Problems (1) Asthma Code(s): J45.909 - UNSPECIFIED ASTHMA, UNCOMPLICATED Qualifiers: Asthma severity: mild intermittent (2) Cellulitis Code(s): L03.90 - CELLULITIS, UNSPECIFIED Qualifiers: Site of cellulitis of extremity: lower extremity Laterality: right (3) Obesity Code(s): E66.9 - OBESITY, UNSPECIFIED Qualifiers: Obesity type: due to excess calories Body mass index: BMI 50.0-59.9 (4) Acute renal failure Code(s): N17.9 - ACUTE KIDNEY FAILURE, UNSPECIFIED (5) Chronic cellulitis Code(s): L03.90 - CELLULITIS, UNSPECIFIED (6) DM2 (diabetes mellitus, type 2) Code(s): E11.9 - TYPE 2 DIABETES MELLITUS WITHOUT COMPLICATIONS Qualifiers: Diabetes mellitus complication detail: with other circulatory complications (7) Leukocytosis Code(s): D72.829 - ELEVATED WHITE BLOOD CELL COUNT, UNSPECIFIED (8) Sepsis Code(s): A41.9 - SEPSIS, UNSPECIFIED ORGANISM Qualifiers: Sepsis type: sepsis due to unspecified organism Qualified Code(s): A41.9 - Sepsis, unspecified organism (9) Fever Code(s): R50.9 - FEVER, UNSPECIFIED plan continue abx wound care elevation of legs physio
--- NOTE | 2017-02-18 14:20 | PN ---
Progress Note, Physician History of Present Illness: Pt seen and examined at bedside. She is awake and alert. She says she feels better. - Current Medication List Current Medications: Active Medications Acetaminophen (Tylenol -) 650 mg PO Q6H PRN PRN Reason: FEVER OR PAIN Last Admin: 02/18/17 04:53 Dose: 650 mg Apixaban (Eliquis -) 5 mg PO BID [facility] Last Admin: 02/18/17 10:55 Dose: 5 mg Bacitracin (Bacitracin -) 1 applic TP BID [facility] Last Admin: 02/18/17 10:57 Dose: 1 applic Budesonide/Formoterol Fumarate (Symbicort 80/4.5mcg -) 2 puff IH BID [facility] Last Admin: 02/18/17 10:55 Dose: 2 puff Diltiazem HCl (Cardizem -) 30 mg PO QID [facility] Last Admin: 02/18/17 14:04 Dose: 30 mg Meropenem 1 gm/ Dextrose 100 mls @ 200 mls/hr IVPB BID [facility] PRN Reason: Protocol Last Admin: 02/18/17 11:16 Dose: 200 mls/hr Vancomycin HCl 1,250 mg/ (Dextrose) 250 mls @ 125 mls/hr IVPB DAILY@1400 [facility] PRN Reason: Protocol Last Admin: 02/17/17 14:27 Dose: 125 mls/hr Insulin Aspart (Novolog Vial Sliding Scale -) 1 vial SQ ACHS [facility] PRN Reason: Protocol Last Admin: 02/18/17 11:15 Dose: 2 units Insulin Detemir (Levemir Vial) 15 units SQ HS [facility] Last Admin: 02/17/17 21:33 Dose: 15 units Nystatin (Nystop Powder -) 1 applic TP DAILY [facility] Last Admin: 02/18/17 10:56 Dose: 1 applic Pantoprazole Sodium (Protonix -) 40 mg PO DAILY [facility] Last Admin: 02/18/17 10:55 Dose: 40 mg Silver Sulfadiazine (Silvadene -) 1 applic TP DAILY [facility] Last Admin: 02/18/17 10:58 Dose: 1 applic - Objective Vital Signs: Vital Signs Temperature 99.2 F 02/18/17 05:50 Pulse Rate 108 H 02/18/17 05:50 Respiratory Rate 18 02/18/17 05:50 Blood Pressure 102/58 02/18/17 05:50 O2 Sat by Pulse Oximetry (%) 98 02/17/17 21:00 Constitutional: Yes: Calm Eyes: Yes: Conjunctiva Clear HENT: Yes: Atraumatic Neck: Yes: Supple Cardiovascular: Yes: S1, S2 Respiratory: Yes: CTA Bilaterally Gastrointestinal: Yes: Soft, Abdomen, Obese Genitourinary: Yes: WNL Edema: Yes Edema: LLE: 1+, RLE: 1+ Integumentary: Yes: Erythema Wound/Incision: Yes: Draining Neurological: Yes: Oriented Psychiatric: Yes: Oriented Labs: CBC, BMP 02/18/17 07:30 02/18/17 07:30 INR, PTT INR 1.54 (0.82-1.09) H 02/12/17 05:00 Problem List - Problems (1) Cellulitis Code(s): L03.90 - CELLULITIS, UNSPECIFIED Qualifiers: Site of cellulitis of extremity: lower extremity Laterality: right (2) Fever Code(s): R50.9 - FEVER, UNSPECIFIED (3) Obesity Code(s): E66.9 - OBESITY, UNSPECIFIED Qualifiers: Obesity type: due to excess calories Body mass index: BMI 50.0-59.9 (4) Sepsis Code(s): A41.9 - SEPSIS, UNSPECIFIED ORGANISM Qualifiers: Sepsis type: sepsis due to unspecified organism Qualified Code(s): A41.9 - Sepsis, unspecified organism (5) NOVA (acute kidney injury) Code(s): N17.9 - ACUTE KIDNEY FAILURE, UNSPECIFIED Assessment/Plan Current Medications Generic Name Dose Route Start Last Admin Trade Name Freq PRN Reason Stop Dose Admin Acetaminophen 650 mg 02/11/17 16:42 02/18/17 04:53 Tylenol - PO 650 mg Q6H PRN Administration FEVER OR PAIN Apixaban 5 mg 02/14/17 16:15 02/18/17 10:55 Eliquis - PO 5 mg BID [facility] Administration Bacitracin 1 applic 02/11/17 22:00 02/18/17 10:57 Bacitracin - TP 1 applic BID [facility] Administration Budesonide/Formoterol Fumarate 2 puff 02/11/17 22:00 02/18/17 10:55 Symbicort 80/4.5mcg - IH 2 puff BID [facility] Administration Diltiazem HCl 30 mg 02/13/17 14:00 02/18/17 14:04 Cardizem - PO 30 mg QID [facility] Administration Meropenem 1 gm/ Dextrose 100 mls @ 200 mls/hr 02/11/17 22:00 02/18/17 11:16 IVPB 200 mls/hr BID [facility] Administration Protocol Vancomycin HCl 1,250 mg/ 250 mls @ 125 mls/hr 02/15/17 14:00 02/17/17 14:27 Dextrose IVPB 125 mls/hr DAILY@1400 [facility] Administration Protocol Insulin Aspart 1 vial 02/11/17 22:00 02/18/17 11:15 Novolog Vial Sliding Scale - SQ 2 units ACHS [facility] Administration Protocol Insulin Detemir 15 units 02/13/17 22:00 02/17/17 21:33 Levemir Vial SQ 15 units HS [facility] Administration Nystatin 1 applic 02/12/17 10:00 02/18/17 10:56 Nystop Powder - TP 1 applic DAILY [facility] Administration Pantoprazole Sodium 40 mg 02/12/17 10:00 02/18/17 10:55 Protonix - PO 40 mg DAILY [facility] Administration Silver Sulfadiazine 1 applic 02/12/17 10:00 02/18/17 10:58 Silvadene - TP 1 applic DAILY [facility] Administration Impression 1. NOVA with worsening creatinine 2. sepsis 3. cellulitis 4. DM 5. a-fib Plan - renal function is stable - will need outpt follow up - repeat UA - NOVA likely from sepsis and prerenal disease - will follow Dr Epstein
--- NOTE | 2017-02-18 16:11 | PN ---
Progress Note, Physician Chief Complaint: AWAKE ALERT FEELING BETTER STILL HAS LEG EDEMA WITH DRAINAGE - Current Medication List Current Medications: Active Medications Acetaminophen (Tylenol -) 650 mg PO Q6H PRN PRN Reason: FEVER OR PAIN Last Admin: 02/18/17 04:53 Dose: 650 mg Apixaban (Eliquis -) 5 mg PO BID [facility] Last Admin: 02/18/17 10:55 Dose: 5 mg Bacitracin (Bacitracin -) 1 applic TP BID [facility] Last Admin: 02/18/17 10:57 Dose: 1 applic Budesonide/Formoterol Fumarate (Symbicort 80/4.5mcg -) 2 puff IH BID [facility] Last Admin: 02/18/17 10:55 Dose: 2 puff Diltiazem HCl (Cardizem -) 30 mg PO QID [facility] Last Admin: 02/18/17 14:04 Dose: 30 mg Meropenem 1 gm/ Dextrose 100 mls @ 200 mls/hr IVPB BID [facility] PRN Reason: Protocol Last Admin: 02/18/17 11:16 Dose: 200 mls/hr Vancomycin HCl 1,250 mg/ (Dextrose) 250 mls @ 125 mls/hr IVPB DAILY@1400 [facility] PRN Reason: Protocol Last Admin: 02/17/17 14:27 Dose: 125 mls/hr Insulin Aspart (Novolog Vial Sliding Scale -) 1 vial SQ ACHS [facility] PRN Reason: Protocol Last Admin: 02/18/17 11:15 Dose: 2 units Insulin Detemir (Levemir Vial) 15 units SQ HS [facility] Last Admin: 02/17/17 21:33 Dose: 15 units Nystatin (Nystop Powder -) 1 applic TP DAILY [facility] Last Admin: 02/18/17 10:56 Dose: 1 applic Pantoprazole Sodium (Protonix -) 40 mg PO DAILY [facility] Last Admin: 02/18/17 10:55 Dose: 40 mg Silver Sulfadiazine (Silvadene -) 1 applic TP DAILY [facility] Last Admin: 02/18/17 10:58 Dose: 1 applic - Objective Vital Signs: Vital Signs Temperature 99.8 F H 02/18/17 16:03 Pulse Rate 84 02/18/17 16:03 Respiratory Rate 18 02/18/17 16:03 Blood Pressure 120/63 02/18/17 16:03 O2 Sat by Pulse Oximetry (%) 98 02/18/17 08:00 Constitutional: Yes: Mild Distress Eyes: Yes: WNL HENT: Yes: WNL Neck: Yes: WNL Cardiovascular: Yes: WNL Respiratory: Yes: WNL Gastrointestinal: Yes: WNL Genitourinary: Yes: WNL Musculoskeletal: Yes: Muscle Weakness Extremities: Yes: Deformity, Erythema Edema: Yes Edema: LLE: 2+, RLE: 2+ Peripheral Pulses WNL: Yes Integumentary: Yes: Pressure Ulcer, Rash, Venous Stasis Changes Wound/Incision: Yes: Dressing Dry and Intact, Draining, Excoriated, Unapproximated Neurological: Yes: Pre-Existing Deficit, Unsteady Gait, Weakness ...Motor Strength: LLE, RLE Psychiatric: Yes: Other Labs: CBC, BMP 02/18/17 07:30 02/18/17 07:30 INR, PTT INR 1.54 (0.82-1.09) H 02/12/17 05:00 Problem List - Problems (1) Cellulitis Code(s): L03.90 - CELLULITIS, UNSPECIFIED Qualifiers: Site of cellulitis of extremity: lower extremity Laterality: right (2) Allergic reaction Code(s): T78.40XA - ALLERGY, UNSPECIFIED, INITIAL ENCOUNTER (3) DM2 (diabetes mellitus, type 2) Code(s): E11.9 - TYPE 2 DIABETES MELLITUS WITHOUT COMPLICATIONS Qualifiers: Diabetes mellitus complication detail: with other circulatory complications (4) Sleep apnea Code(s): G47.30 - SLEEP APNEA, UNSPECIFIED Qualifiers: Sleep apnea type: idiopathic sleep related nonobstructive alveolar hypoventilation Qualified Code(s): G47.34 - Idiopathic sleep related nonobstructive alveolar hypoventilation (5) Asthma Code(s): J45.909 - UNSPECIFIED ASTHMA, UNCOMPLICATED Qualifiers: Asthma severity: mild intermittent (6) Obesity Code(s): E66.9 - OBESITY, UNSPECIFIED Qualifiers: Obesity type: due to excess calories Body mass index: BMI 50.0-59.9 (7) NOVA (acute kidney injury) Code(s): N17.9 - ACUTE KIDNEY FAILURE, UNSPECIFIED (8) Sepsis affecting skin Code(s): A41.9 - SEPSIS, UNSPECIFIED ORGANISM Assessment/Plan PLASTIC SURGERY EVAL OF LEGS WOUND CARE IV ABX PT EVAL SNF DIETARY EVAL FOR DIABETES COMPLIANCE
[2017-02-18] MEDS: VANCOMYCIN 1,250 MG in DEXTROSE 5%-WATER - 250 ML IVPB SCH (16:18)
[2017-02-18] MEDS: INSULIN DETEMIR 100 UNITS/ML MDV SQ SCH (22:04)
[2017-02-19] MEDS: INSULIN SLIDING SCALE (NOVOLOG) 1 VIAL SQ SCH ×4 (06:22→21:44)
[2017-02-19] MEDS ORDERED: HEPARIN NA (PORCINE) 5,000 UNITS/ML 1ML VIAL IVPUSH PRN ×2 (07:26)
[2017-02-19] MEDS ORDERED: ACETAMINOPHEN 325 MG TABLET (FP) PO PRN (07:26)
[2017-02-19 09:31] LABS: MCH 27.2 pg (25.7-33.7); MCHC 31.8 g/dl (32.0-36.0); MEAN CELL VOLUME 85.6 fl (80-96); MEAN PLT VOLUME 8.6 fl (7.5-11.1); PLATELET COUNT 597 K/MM3 (134-434); RDW 15.3 % (11.6-15.6); WHITE BLOOD COUNT 13.4 K/mm3 (4.0-10.0)
[2017-02-19] MEDS: dilTIAZem HCL 30 MG TABLET (FP) PO SCH ×4 (10:25→21:43)
[2017-02-19] MEDS: APIXABAN 5 MG TABLET PO SCH ×2 (10:25→21:43)
[2017-02-19] MEDS: PANTOPRAZOLE 40 MG TABLET (FP) PO SCH (10:25)
[2017-02-19] MEDS: BUDESONIDE/FORMETEROL FUMARATE 80/4.5 mcg INHALER IH SCH ×2 (10:27→21:46)
[2017-02-19] MEDS ORDERED: INSULIN (NOVOLOG) ASPART 100 UNITS/ML 10ML VIAL ONE (11:57)
[2017-02-19] MEDS: VANCOMYCIN 1,250 MG in DEXTROSE 5%-WATER - 250 ML IVPB SCH (15:00)
[2017-02-19] MEDS: SILVER SULFADIAZINE 1% TOP CREAM 50 GM JAR TP SCH (15:22)
[2017-02-19] MEDS: NYSTATIN POWDER 100,000 UNITS/GM - 15 GM TOPICAL POWDER TP SCH (15:23)
[2017-02-19] MEDS: BACITRACIN 15 GM TUBE TOPICAL OINTMENT TP SCH ×2 (15:23→21:46)
--- NOTE | 2017-02-19 16:12 | PN ---
Progress Note (short form) - Note Progress Note: No acute events overnight. No CP or SOB. Still with some LE discomfort. OBJECTIVE: Intake & Output 02/16/17 02/17/17 02/18/17 02/19/17 23:59 23:59 23:59 23:59 Intake Total 850 1198 350 400 Output Total 600 Balance 850 598 350 400 Weight 248 lb 2 oz 304 lb 9 oz 300 lb 3.2 oz Last Vital Signs Temp Pulse Resp BP Pulse Ox 98.8 F 97 H 20 142/70 98 02/19/17 13:51 02/19/17 13:51 02/19/17 13:51 02/19/17 13:51 02/18/17 21:00 Active Medications Acetaminophen (Tylenol -) 650 mg PO Q6H PRN PRN Reason: FEVER OR PAIN Apixaban (Eliquis -) 5 mg PO BID [facility] Last Admin: 02/19/17 10:25 Dose: 5 mg Bacitracin (Bacitracin -) 1 applic TP BID [facility] Last Admin: 02/19/17 15:23 Dose: 1 applic Budesonide/Formoterol Fumarate (Symbicort 80/4.5mcg -) 2 puff IH BID [facility] Last Admin: 02/19/17 10:27 Dose: 2 puff Diltiazem HCl (Cardizem -) 30 mg PO QID [facility] Last Admin: 02/19/17 15:00 Dose: 30 mg Vancomycin HCl 1,250 mg/ (Dextrose) 250 mls @ 125 mls/hr IVPB DAILY@1400 [facility] PRN Reason: Protocol Last Admin: 02/19/17 15:00 Dose: 125 mls/hr Insulin Aspart (Novolog Vial Sliding Scale -) 1 vial SQ ACHS [facility] PRN Reason: Protocol Last Admin: 02/19/17 12:00 Dose: Not Given Insulin Detemir (Levemir Vial) 15 units SQ HS [facility] Nystatin (Nystop Powder -) 1 applic TP DAILY [facility] Last Admin: 02/19/17 15:23 Dose: 1 applic Pantoprazole Sodium (Protonix -) 40 mg PO DAILY [facility] Last Admin: 02/19/17 10:25 Dose: 40 mg Silver Sulfadiazine (Silvadene -) 1 applic TP DAILY [facility] Last Admin: 02/19/17 15:22 Dose: 1 applic Gen: NAD Heart: Irregular Lung: decreased breath sounds at the bases Abd: soft, nontender, obese Ext: + edema, less erythema Laboratory Results - last 24 hr 02/18/17 02/18/17 02/19/17 17:42 21:56 06:20 WBC RBC Hgb Hct MCV MCH MCHC RDW Plt Count MPV PTT (Actin FS) POC Glucometer 157 186 164 02/19/17 02/19/17 02/19/17 09:11 09:11 11:59 WBC 13.4 H RBC 3.77 Hgb 10.2 L Hct 32.2 L MCV 85.6 MCH 27.2 MCHC 31.8 L RDW 15.3 Plt Count 597 H MPV 8.6 PTT (Actin FS) 35.2 H POC Glucometer 184 Problem List - Problems (1) Cellulitis Code(s): L03.90 - CELLULITIS, UNSPECIFIED Qualifiers: Qualified Code(s): L03.115 - Cellulitis of right lower limb (2) Severe sepsis Code(s): A41.9 - SEPSIS, UNSPECIFIED ORGANISM R65.20 - SEVERE SEPSIS WITHOUT SEPTIC SHOCK (3) NOVA (acute kidney injury) Code(s): N17.9 - ACUTE KIDNEY FAILURE, UNSPECIFIED (4) Lactic acidosis Code(s): E87.2 - ACIDOSIS (5) Morbid obesity Code(s): E66.01 - MORBID (SEVERE) OBESITY DUE TO EXCESS CALORIES (6) DM2 (diabetes mellitus, type 2) Code(s): E11.9 - TYPE 2 DIABETES MELLITUS WITHOUT COMPLICATIONS ASSESSMENT AND PLAN: Cellulitis Severe Sepsis Acute Kidney Injury Lactic Acidosis Atrial Fibrillation with RVR Morbid Obesity Uncontrolled Diabetes - ABX per ID - monitor urine output, creatinine - O2 to keep SpO2 >90% - glucose control - rate control - AC Dr Andre
--- NOTE | 2017-02-19 17:00 | PN ---
Progress Note, Physician History of Present Illness: much better no new issues - Current Medication List Current Medications: Active Medications Acetaminophen (Tylenol -) 650 mg PO Q6H PRN PRN Reason: FEVER OR PAIN Apixaban (Eliquis -) 5 mg PO BID [facility] Last Admin: 02/19/17 10:25 Dose: 5 mg Bacitracin (Bacitracin -) 1 applic TP BID [facility] Last Admin: 02/19/17 15:23 Dose: 1 applic Budesonide/Formoterol Fumarate (Symbicort 80/4.5mcg -) 2 puff IH BID [facility] Last Admin: 02/19/17 10:27 Dose: 2 puff Diltiazem HCl (Cardizem -) 30 mg PO QID [facility] Last Admin: 02/19/17 15:00 Dose: 30 mg Vancomycin HCl 1,250 mg/ (Dextrose) 250 mls @ 125 mls/hr IVPB DAILY@1400 [facility] PRN Reason: Protocol Last Admin: 02/19/17 15:00 Dose: 125 mls/hr Insulin Aspart (Novolog Vial Sliding Scale -) 1 vial SQ ACHS [facility] PRN Reason: Protocol Last Admin: 02/19/17 12:00 Dose: Not Given Insulin Detemir (Levemir Vial) 15 units SQ HS [facility] Nystatin (Nystop Powder -) 1 applic TP DAILY [facility] Last Admin: 02/19/17 15:23 Dose: 1 applic Pantoprazole Sodium (Protonix -) 40 mg PO DAILY [facility] Last Admin: 02/19/17 10:25 Dose: 40 mg Silver Sulfadiazine (Silvadene -) 1 applic TP DAILY [facility] Last Admin: 02/19/17 15:22 Dose: 1 applic - Objective Vital Signs: Vital Signs Temperature 98.8 F 02/19/17 13:51 Pulse Rate 97 H 02/19/17 13:51 Respiratory Rate 20 02/19/17 13:51 Blood Pressure 142/70 02/19/17 13:51 O2 Sat by Pulse Oximetry (%) 98 02/18/17 21:00 Constitutional: Yes: No Distress, Calm, Obese Cardiovascular: Yes: Regular Rate and Rhythm Respiratory: Yes: Regular, CTA Bilaterally Musculoskeletal: Yes: WNL Extremities: Yes: Other Integumentary: Yes: Other Wound/Incision: Yes: Dressing Dry and Intact Neurological: Yes: Alert, Oriented Psychiatric: Yes: Alert, Oriented Labs: CBC, BMP 02/19/17 09:11 02/18/17 07:30 INR, PTT INR 1.54 (0.82-1.09) H 02/12/17 05:00 Assessment/Plan Problem List - Problems (1) Asthma Code(s): J45.909 - UNSPECIFIED ASTHMA, UNCOMPLICATED Qualifiers: Asthma severity: mild intermittent (2) Cellulitis Code(s): L03.90 - CELLULITIS, UNSPECIFIED Qualifiers: Site of cellulitis of extremity: lower extremity Laterality: right (3) Obesity Code(s): E66.9 - OBESITY, UNSPECIFIED Qualifiers: Obesity type: due to excess calories Body mass index: BMI 50.0-59.9 (4) Acute renal failure Code(s): N17.9 - ACUTE KIDNEY FAILURE, UNSPECIFIED (5) Chronic cellulitis Code(s): L03.90 - CELLULITIS, UNSPECIFIED (6) DM2 (diabetes mellitus, type 2) Code(s): E11.9 - TYPE 2 DIABETES MELLITUS WITHOUT COMPLICATIONS Qualifiers: Diabetes mellitus complication detail: with other circulatory complications (7) Leukocytosis Code(s): D72.829 - ELEVATED WHITE BLOOD CELL COUNT, UNSPECIFIED (8) Sepsis Code(s): A41.9 - SEPSIS, UNSPECIFIED ORGANISM Qualifiers: Sepsis type: sepsis due to unspecified organism Qualified Code(s): A41.9 - Sepsis, unspecified organism (9) Fever Code(s): R50.9 - FEVER, UNSPECIFIED plan continue abx wound care elevation of legs physio will check vanco trough tomorrow
--- NOTE | 2017-02-19 21:13 | PN ---
Progress Note, Physician Chief Complaint: AWAKE ALERT C/O LEG PAIN LEFT > RIGHT - Current Medication List Current Medications: Active Medications Acetaminophen (Tylenol -) 650 mg PO Q6H PRN PRN Reason: FEVER OR PAIN Apixaban (Eliquis -) 5 mg PO BID [facility] Last Admin: 02/19/17 10:25 Dose: 5 mg Bacitracin (Bacitracin -) 1 applic TP BID [facility] Last Admin: 02/19/17 15:23 Dose: 1 applic Budesonide/Formoterol Fumarate (Symbicort 80/4.5mcg -) 2 puff IH BID [facility] Last Admin: 02/19/17 10:27 Dose: 2 puff Diltiazem HCl (Cardizem -) 30 mg PO QID [facility] Last Admin: 02/19/17 18:45 Dose: 30 mg Vancomycin HCl 1,250 mg/ (Dextrose) 250 mls @ 125 mls/hr IVPB DAILY@1400 [facility] PRN Reason: Protocol Last Admin: 02/19/17 15:00 Dose: 125 mls/hr Insulin Aspart (Novolog Vial Sliding Scale -) 1 vial SQ ACHS [facility] PRN Reason: Protocol Last Admin: 02/19/17 17:14 Dose: Not Given Insulin Detemir (Levemir Vial) 15 units SQ HS [facility] Nystatin (Nystop Powder -) 1 applic TP DAILY [facility] Last Admin: 02/19/17 15:23 Dose: 1 applic Pantoprazole Sodium (Protonix -) 40 mg PO DAILY [facility] Last Admin: 02/19/17 10:25 Dose: 40 mg Silver Sulfadiazine (Silvadene -) 1 applic TP DAILY [facility] Last Admin: 02/19/17 15:22 Dose: 1 applic - Objective Vital Signs: Vital Signs Temperature 98.8 F 02/19/17 13:51 Pulse Rate 97 H 02/19/17 13:51 Respiratory Rate 20 02/19/17 13:51 Blood Pressure 142/70 02/19/17 13:51 O2 Sat by Pulse Oximetry (%) 98 02/18/17 21:00 Constitutional: Yes: Mild Distress Eyes: Yes: WNL HENT: Yes: WNL Neck: Yes: WNL Cardiovascular: Yes: WNL Respiratory: Yes: WNL Gastrointestinal: Yes: WNL Genitourinary: Yes: WNL Musculoskeletal: Yes: Back Pain, Joint Swelling, Muscle Weakness Extremities: Yes: Erythema Edema: Yes Edema: LLE: 2+, RLE: 2+ Peripheral Pulses WNL: Yes Integumentary: Yes: Erythema, Pressure Ulcer, Rash, Venous Stasis Changes Wound/Incision: Yes: Dressing Dry and Intact Neurological: Yes: Pre-Existing Deficit, Unsteady Gait ...Motor Strength: LLE, RLE Psychiatric: Yes: Other Labs: CBC, BMP 02/19/17 09:11 02/18/17 07:30 INR, PTT INR 1.54 (0.82-1.09) H 02/12/17 05:00 Problem List - Problems (1) Cellulitis Code(s): L03.90 - CELLULITIS, UNSPECIFIED Qualifiers: Site of cellulitis of extremity: lower extremity Laterality: right (2) Allergic reaction Code(s): T78.40XA - ALLERGY, UNSPECIFIED, INITIAL ENCOUNTER (3) DM2 (diabetes mellitus, type 2) Code(s): E11.9 - TYPE 2 DIABETES MELLITUS WITHOUT COMPLICATIONS Qualifiers: Diabetes mellitus complication detail: with other circulatory complications (4) Sleep apnea Code(s): G47.30 - SLEEP APNEA, UNSPECIFIED Qualifiers: Sleep apnea type: idiopathic sleep related nonobstructive alveolar hypoventilation Qualified Code(s): G47.34 - Idiopathic sleep related nonobstructive alveolar hypoventilation (5) Asthma Code(s): J45.909 - UNSPECIFIED ASTHMA, UNCOMPLICATED Qualifiers: Asthma severity: mild intermittent (6) Obesity Code(s): E66.9 - OBESITY, UNSPECIFIED Qualifiers: Obesity type: due to excess calories Body mass index: BMI 50.0-59.9 (7) NOVA (acute kidney injury) Code(s): N17.9 - ACUTE KIDNEY FAILURE, UNSPECIFIED (8) Sepsis affecting skin Code(s): A41.9 - SEPSIS, UNSPECIFIED ORGANISM Assessment/Plan PLASTIC SURGERY EVAL OF LEGS WOUND CARE IV ABX PT EVAL SNF DIETARY EVAL FOR DIABETES COMPLIANCE
[2017-02-19] MEDS: INSULIN DETEMIR 100 UNITS/ML MDV SQ SCH (21:43)
[2017-02-20] MEDS: INSULIN SLIDING SCALE (NOVOLOG) 1 VIAL SQ SCH ×4 (06:09→22:02)
[2017-02-20 08:10] LABS: MCHC 31.5 g/dl (32.0-36.0); MEAN CELL VOLUME 85.8 fl (80-96); MEAN PLT VOLUME 8.8 fl (7.5-11.1); PLATELET COUNT 478 K/MM3 (134-434); RDW 15.8 % (11.6-15.6); WHITE BLOOD COUNT 12.2 K/mm3 (4.0-10.0)
--- NOTE | 2017-02-20 09:32 | DS ---
Physical Examination Vital Signs: Vital Signs Temperature 98.3 F 02/20/17 06:00 Pulse Rate 104 H 02/20/17 06:00 Respiratory Rate 24 02/20/17 06:00 Blood Pressure 97/62 02/20/17 06:00 O2 Sat by Pulse Oximetry (%) 98 02/18/17 21:00 Constitutional: Yes: Mild Distress Eyes: Yes: WNL HENT: Yes: WNL Neck: Yes: WNL Cardiovascular: Yes: WNL Respiratory: Yes: WNL Gastrointestinal: Yes: WNL Renal/: Yes: WNL Musculoskeletal: Yes: Joint Swelling, Muscle Pain, Muscle Weakness Extremities: Yes: Deformity, Erythema Edema: Yes Peripheral Pulses WNL: Yes Integumentary: Yes: Erythema, Pressure Ulcer, Skin Tear, Venous Stasis Changes Wound/Incision: Yes: Dressing Dry and Intact, Draining Neurological: Yes: Pre-Existing Deficit ...Motor Strength: LLE, RLE Psychiatric: Yes: Other Labs: CBC, BMP 02/20/17 07:30 02/18/17 07:30 Discharge Summary Reason For Visit: CELLULITIS METABOLIC ACIDOSIS Current Active Problems NOVA (acute kidney injury) (Acute) Afib (Acute) Asthma (Acute) Cellulitis (Acute) Fever (Acute) Lactic acidosis (Acute) Metabolic acidosis (Acute) Morbid obesity (Acute) Obesity (Acute) Sepsis (Acute) Sepsis affecting skin (Acute) Severe sepsis (Acute) Sleep apnea (Acute) Procedures: Principal: picc line Other Procedures: labs dopplers Hospital Course: admitted for acute sepsis, arf, severe leg wounds with ulcers, treated with iv abx will need 14-21 days depending on id for snf placement with picc line and wound care. Condition: Fair - Instructions Diet, Activity, Other Instructions: low fat diabetic diet vas surgery dr rizzo wound care Referrals: Onur Maxwell MD [Primary Care Provider] - Disposition: ASSISTED FACILITY - Home Medications Comprehensive Discharge Medication List: Ambulatory Orders Insulin Sliding Scale [Novolog Vial Sliding Scale -] See Protocol SQ ACHS #7 pen 09/19/15 Albuterol Sulfate Inhaler - [Ventolin HFA Inhaler -] 1 - 2 inh PO Q4H #1 inhaler 10/09/15 Insulin Detemir [Levemir Flextouch] 5 unit SQ HS #0 10/09/15 Oxycodone HCl [Roxicodone -] 5 mg PO Q6H PRN #10 tablet MDD 4 10/09/15 Pantoprazole Sodium [Protonix -] 40 mg PO BID #60 tablet.ec 10/09/15 Clindamycin [Cleocin -] 300 mg PO BID 10/20/15 Gabapentin 0 mg PO DAILY 02/09/17 Multivitamin [Poly-Vitamin] 1 each PO DAILY 02/09/17
[2017-02-20] MEDS: dilTIAZem HCL 30 MG TABLET (FP) PO SCH ×4 (10:56→22:05)
[2017-02-20] MEDS: PANTOPRAZOLE 40 MG TABLET (FP) PO SCH (10:56)
[2017-02-20] MEDS: BUDESONIDE/FORMETEROL FUMARATE 80/4.5 mcg INHALER IH SCH ×2 (10:58→22:11)
[2017-02-20] MEDS: SILVER SULFADIAZINE 1% TOP CREAM 50 GM JAR TP SCH (10:59)
[2017-02-20] MEDS: BACITRACIN 15 GM TUBE TOPICAL OINTMENT TP SCH ×2 (10:59→22:02)
[2017-02-20] MEDS: NYSTATIN POWDER 100,000 UNITS/GM - 15 GM TOPICAL POWDER TP SCH (10:59)
[2017-02-20] MEDS ORDERED: INSULIN (NOVOLOG) ASPART 100 UNITS/ML 10ML VIAL ONE (11:06)
--- NOTE | 2017-02-20 14:43 | PN ---
Progress Note, Physician History of Present Illness: much better no new issues patient getting picc line - Current Medication List Current Medications: Active Medications Acetaminophen (Tylenol -) 650 mg PO Q6H PRN PRN Reason: FEVER OR PAIN Last Admin: 02/19/17 21:42 Dose: 650 mg Apixaban (Eliquis -) 5 mg PO BID [facility] Last Admin: 02/19/17 21:43 Dose: 5 mg Bacitracin (Bacitracin -) 1 applic TP BID [facility] Last Admin: 02/20/17 10:59 Dose: 1 applic Budesonide/Formoterol Fumarate (Symbicort 80/4.5mcg -) 2 puff IH BID [facility] Last Admin: 02/20/17 10:58 Dose: 2 puff Diltiazem HCl (Cardizem -) 30 mg PO QID [facility] Last Admin: 02/20/17 10:56 Dose: 30 mg IV Flush (Picc Line Flush) 8 ml IVPUSH PRN PRN PRN Reason: Protocol Vancomycin HCl 1,250 mg/ (Dextrose) 250 mls @ 125 mls/hr IVPB DAILY@1400 [facility] PRN Reason: Protocol Last Admin: 02/19/17 15:00 Dose: 125 mls/hr Insulin Aspart (Novolog Vial Sliding Scale -) 1 vial SQ ACHS [facility] PRN Reason: Protocol Last Admin: 02/20/17 11:44 Dose: Not Given Insulin Detemir (Levemir Vial) 15 units SQ HS [facility] Last Admin: 02/19/17 21:43 Dose: 15 units Nystatin (Nystop Powder -) 1 applic TP DAILY [facility] Last Admin: 02/20/17 10:59 Dose: 1 applic Pantoprazole Sodium (Protonix -) 40 mg PO DAILY [facility] Last Admin: 02/20/17 10:56 Dose: 40 mg Silver Sulfadiazine (Silvadene -) 1 applic TP DAILY [facility] Last Admin: 02/20/17 10:59 Dose: 1 applic - Objective Vital Signs: Vital Signs Temperature 98.9 F 02/20/17 13:31 Pulse Rate 116 H 02/20/17 13:31 Respiratory Rate 18 02/20/17 13:31 Blood Pressure 116/77 02/20/17 13:31 O2 Sat by Pulse Oximetry (%) 97 02/20/17 09:00 Constitutional: Yes: No Distress, Calm, Obese Cardiovascular: Yes: Regular Rate and Rhythm Respiratory: Yes: Regular, CTA Bilaterally Gastrointestinal: Yes: Normal Bowel Sounds, Soft Musculoskeletal: Yes: Other Extremities: Yes: Other Wound/Incision: Yes: Dressing Dry and Intact, Other Neurological: Yes: Alert, Oriented Psychiatric: Yes: Alert, Oriented Labs: CBC, BMP 02/20/17 07:30 02/18/17 07:30 INR, PTT INR 1.54 (0.82-1.09) H 02/12/17 05:00 Assessment/Plan Problem List - Problems (1) Asthma Code(s): J45.909 - UNSPECIFIED ASTHMA, UNCOMPLICATED Qualifiers: Asthma severity: mild intermittent (2) Cellulitis Code(s): L03.90 - CELLULITIS, UNSPECIFIED Qualifiers: Site of cellulitis of extremity: lower extremity Laterality: right (3) Obesity Code(s): E66.9 - OBESITY, UNSPECIFIED Qualifiers: Obesity type: due to excess calories Body mass index: BMI 50.0-59.9 (4) Acute renal failure Code(s): N17.9 - ACUTE KIDNEY FAILURE, UNSPECIFIED (5) Chronic cellulitis Code(s): L03.90 - CELLULITIS, UNSPECIFIED (6) DM2 (diabetes mellitus, type 2) Code(s): E11.9 - TYPE 2 DIABETES MELLITUS WITHOUT COMPLICATIONS Qualifiers: Diabetes mellitus complication detail: with other circulatory complications (7) Leukocytosis Code(s): D72.829 - ELEVATED WHITE BLOOD CELL COUNT, UNSPECIFIED (8) Sepsis Code(s): A41.9 - SEPSIS, UNSPECIFIED ORGANISM Qualifiers: Sepsis type: sepsis due to unspecified organism Qualified Code(s): A41.9 - Sepsis, unspecified organism (9) Fever Code(s): R50.9 - FEVER, UNSPECIFIED plan continue abx patient to get vanco for 10 more days check trough rest as per primary
[2017-02-20] MEDS ORDERED: PT OWN MED DRAWER 7, Y5N ONE (15:58)
[2017-02-20] MEDS: VANCOMYCIN 1,250 MG in DEXTROSE 5%-WATER - 250 ML IVPB SCH (16:04)
[2017-02-20] MEDS: APIXABAN 5 MG TABLET PO SCH ×2 (16:07→22:05)
[2017-02-20] MEDS: PICC LINE 8 ML FLUSH PROTOCOL IVPUSH PRN (18:00)
[2017-02-20] MEDS: INSULIN DETEMIR 100 UNITS/ML MDV SQ SCH (22:06)
[2017-02-21] MEDS: INSULIN SLIDING SCALE (NOVOLOG) 1 VIAL SQ SCH ×3 (06:12→16:46)
[2017-02-21 08:48] LABS: MCH 26.8 pg (25.7-33.7); MCHC 31.5 g/dl (32.0-36.0); MEAN CELL VOLUME 84.9 fl (80-96); MEAN PLT VOLUME 9.1 fl (7.5-11.1); PLATELET COUNT 492 K/MM3 (134-434); RDW 15.9 % (11.6-15.6); WHITE BLOOD COUNT 12.6 K/mm3 (4.0-10.0)
[2017-02-21 09:20] LABS: ALBUMIN 2.3 g/dl (3.4-5.0); ANION GAP 11 (8-16); BILIRUBIN,TOTAL 0.4 mg/dL (0.2-1.0); CALCIUM 8.4 mg/dL (8.5-10.1); CO2 22 mmol/L (21-32); CREATININE 0.8 mg/dL (0.55-1.02); GLUCOSE,RANDOM 138 mg/dL (74-106); SGOT/AST 15 U/L (15-37); SGPT/ALT 25 U/L (12-78); TOT PROT 6.6 g/dl (6.4-8.2)
[2017-02-21 09:23] LABS: ALK PHOS 94 U/L (45-117); CPK 47 IU/L (26-192); TROPONIN I < 0.02 ng/ml (0.00-0.05)
[2017-02-21] MEDS ORDERED: PT OWN MED DRAWER 7, Y5N ONE ×2 (10:27→16:29)
[2017-02-21] MEDS: SILVER SULFADIAZINE 1% TOP CREAM 50 GM JAR TP SCH (10:41)
[2017-02-21] MEDS: NYSTATIN POWDER 100,000 UNITS/GM - 15 GM TOPICAL POWDER TP SCH (10:41)
[2017-02-21] MEDS: dilTIAZem HCL 30 MG TABLET (FP) PO SCH ×3 (10:42→18:11)
[2017-02-21] MEDS: PANTOPRAZOLE 40 MG TABLET (FP) PO SCH (10:42)
[2017-02-21] MEDS: APIXABAN 5 MG TABLET PO SCH (10:42)
[2017-02-21] MEDS: BACITRACIN 15 GM TUBE TOPICAL OINTMENT TP SCH (10:43)
[2017-02-21] MEDS: BUDESONIDE/FORMETEROL FUMARATE 80/4.5 mcg INHALER IH SCH (10:43)
--- NOTE | 2017-02-21 10:48 | PN ---
Progress Note (short form) - Note Progress Note: No acute events overnight. No CP or SOB. Intake & Output 02/18/17 02/19/17 02/20/17 02/21/17 23:59 23:59 23:59 23:59 Intake Total 350 650 750 Balance 350 650 750 Weight 300 lb 3.2 oz 296 lb 4.8 oz 294 lb Last Vital Signs Temp Pulse Resp BP Pulse Ox 98.8 F 118 H 20 97/70 96 02/21/17 08:00 02/21/17 08:00 02/21/17 08:00 02/21/17 08:00 02/20/17 21:00 Active Medications Acetaminophen (Tylenol -) 650 mg PO Q6H PRN PRN Reason: FEVER OR PAIN Last Admin: 02/19/17 21:42 Dose: 650 mg Apixaban (Eliquis -) 5 mg PO BID [facility] Last Admin: 02/21/17 10:42 Dose: 5 mg Bacitracin (Bacitracin -) 1 applic TP BID [facility] Last Admin: 02/21/17 10:43 Dose: 1 applic Budesonide/Formoterol Fumarate (Symbicort 80/4.5mcg -) 2 puff IH BID [facility] Last Admin: 02/21/17 10:43 Dose: 2 puff Diltiazem HCl (Cardizem -) 30 mg PO QID [facility] Last Admin: 02/21/17 10:42 Dose: 30 mg IV Flush (Picc Line Flush) 8 ml IVPUSH PRN PRN PRN Reason: Protocol Last Admin: 02/20/17 18:00 Dose: 8 ml Vancomycin HCl 1,250 mg/ (Dextrose) 250 mls @ 125 mls/hr IVPB DAILY@1400 [facility] PRN Reason: Protocol Last Admin: 02/20/17 16:04 Dose: 125 mls/hr Insulin Aspart (Novolog Vial Sliding Scale -) 1 vial SQ ACHS [facility] PRN Reason: Protocol Last Admin: 02/21/17 06:12 Dose: Not Given Insulin Detemir (Levemir Vial) 15 units SQ HS [facility] Last Admin: 02/20/17 22:06 Dose: 15 units Nystatin (Nystop Powder -) 1 applic TP DAILY [facility] Last Admin: 02/21/17 10:41 Dose: 1 applic Pantoprazole Sodium (Protonix -) 40 mg PO DAILY [facility] Last Admin: 02/21/17 10:42 Dose: 40 mg Silver Sulfadiazine (Silvadene -) 1 applic TP DAILY [facility] Last Admin: 02/21/17 10:41 Dose: 1 applic Gen: NAD Heart: Irregular Lung: decreased breath sounds at the bases Abd: soft, nontender, obese Ext: + edema, less erythema Laboratory Results - last 24 hr 02/20/17 02/20/17 02/20/17 11:43 16:53 22:01 WBC RBC Hgb Hct MCV MCH MCHC RDW Plt Count MPV PTT (Actin FS) Sodium Potassium Chloride Carbon Dioxide Anion Gap BUN Creatinine Creat Clearance w eGFR POC Glucometer 163 206 169 Random Glucose Lactic Acid Calcium Total Bilirubin AST ALT Alkaline Phosphatase Creatine Kinase Troponin I Total Protein Albumin 02/21/17 02/21/17 02/21/17 05:50 06:45 07:40 WBC RBC Hgb Hct MCV MCH MCHC RDW Plt Count MPV PTT (Actin FS) 34.0 Sodium Potassium Chloride Carbon Dioxide Anion Gap BUN Creatinine Creat Clearance w eGFR POC Glucometer 128 Random Glucose Lactic Acid 1.9 Calcium Total Bilirubin AST ALT Alkaline Phosphatase Creatine Kinase Troponin I Total Protein Albumin 02/21/17 02/21/17 07:40 07:40 WBC 12.6 H RBC 3.64 Hgb 9.7 L Hct 30.9 L MCV 84.9 MCH 26.8 MCHC 31.5 L RDW 15.9 H Plt Count 492 H MPV 9.1 PTT (Actin FS) Sodium 139 Potassium 4.3 Chloride 106 Carbon Dioxide 22 Anion Gap 11 BUN 14 Creatinine 0.8 Creat Clearance w eGFR > 60 POC Glucometer Random Glucose 138 H D Lactic Acid Calcium 8.4 L Total Bilirubin 0.4 AST 15 D ALT 25 D Alkaline Phosphatase 94 D Creatine Kinase 47 Troponin I < 0.02 Total Protein 6.6 Albumin 2.3 L Problem List - Problems (1) Cellulitis Code(s): L03.90 - CELLULITIS, UNSPECIFIED Qualifiers: Qualified Code(s): L03.115 - Cellulitis of right lower limb (2) Severe sepsis Code(s): A41.9 - SEPSIS, UNSPECIFIED ORGANISM R65.20 - SEVERE SEPSIS WITHOUT SEPTIC SHOCK (3) NOVA (acute kidney injury) Code(s): N17.9 - ACUTE KIDNEY FAILURE, UNSPECIFIED (4) Lactic acidosis Code(s): E87.2 - ACIDOSIS (5) Morbid obesity Code(s): E66.01 - MORBID (SEVERE) OBESITY DUE TO EXCESS CALORIES (6) DM2 (diabetes mellitus, type 2) Code(s): E11.9 - TYPE 2 DIABETES MELLITUS WITHOUT COMPLICATIONS ASSESSMENT AND PLAN: Cellulitis Severe Sepsis Acute Kidney Injury Lactic Acidosis Atrial Fibrillation with RVR Morbid Obesity Uncontrolled Diabetes - ABX per ID - monitor urine output, creatinine - O2 to keep SpO2 >90% - glucose control - rate control - AC - On D/C, Symbicort dose should be increased to the 160/4.[address] Andre
--- NOTE | 2017-02-21 10:50 | PN ---
Progress Note (short form) - Note Progress Note: FEVER DOCUMENTED ON ABX PICCLINE IN PLACE AFIB CHRONIC ON CARDIZEM AND ELIQUIS CONTINUE WITH DISCHARGE DENIES CHEST PAIN OR SOB Problem List - Problems (1) Cellulitis Code(s): L03.90 - CELLULITIS, UNSPECIFIED Qualifiers: Qualified Code(s): L03.115 - Cellulitis of right lower limb (2) Allergic reaction Code(s): T78.40XA - ALLERGY, UNSPECIFIED, INITIAL ENCOUNTER (3) DM2 (diabetes mellitus, type 2) Code(s): E11.9 - TYPE 2 DIABETES MELLITUS WITHOUT COMPLICATIONS (4) Sleep apnea Code(s): G47.30 - SLEEP APNEA, UNSPECIFIED Qualifiers: Qualified Code(s): G47.34 - Idiopathic sleep related nonobstructive alveolar hypoventilation (5) Asthma Code(s): J45.909 - UNSPECIFIED ASTHMA, UNCOMPLICATED (6) Obesity Code(s): E66.9 - OBESITY, UNSPECIFIED (7) NOVA (acute kidney injury) Code(s): N17.9 - ACUTE KIDNEY FAILURE, UNSPECIFIED (8) Sepsis affecting skin Code(s): A41.9 - SEPSIS, UNSPECIFIED ORGANISM
--- NOTE | 2017-02-21 12:52 | EKG ---
Test Reason : Blood Pressure : / mmHG Vent. Rate : 093 BPM Atrial Rate : 326 BPM P-R Int : 000 ms QRS Dur : 078 ms QT Int : 354 ms P-R-T Axes : 000 025 024 degrees QTc Int : 440 ms ATRIAL FIBRILLATION LOW VOLTAGE QRS ABNORMAL ECG WHEN COMPARED WITH ECG OF 12-FEB-2017 08:56, NO SIGNIFICANT CHANGE WAS FOUND Confirmed by LYDIA GUY MD ([id number]) on 02/21/2017 12:52:29 PM Referred By: DARON DHILLON DR Confirmed By:LYDIA GUY MD
[2017-02-21] MEDS: VANCOMYCIN 1,250 MG in DEXTROSE 5%-WATER - 250 ML IVPB SCH (13:31)
[2017-02-21 14:56] VITALS: BP 109/52; PULSE 95; TEMP 98.3
[2017-02-21] MEDS: PICC LINE 8 ML FLUSH PROTOCOL IVPUSH PRN (15:00)
--- NOTE | 2017-02-21 15:53 | PN ---
Progress Note, Physician History of Present Illness: stable picc line placed spiked a fever currently afebrile - Current Medication List Current Medications: Active Medications Acetaminophen (Tylenol -) 650 mg PO Q6H PRN PRN Reason: FEVER OR PAIN Last Admin: 02/19/17 21:42 Dose: 650 mg Apixaban (Eliquis -) 5 mg PO BID [facility] Last Admin: 02/21/17 10:42 Dose: 5 mg Bacitracin (Bacitracin -) 1 applic TP BID [facility] Last Admin: 02/21/17 10:43 Dose: 1 applic Budesonide/Formoterol Fumarate (Symbicort 80/4.5mcg -) 2 puff IH BID [facility] Last Admin: 02/21/17 10:43 Dose: 2 puff Diltiazem HCl (Cardizem -) 30 mg PO QID [facility] Last Admin: 02/21/17 14:25 Dose: 30 mg IV Flush (Picc Line Flush) 8 ml IVPUSH PRN PRN PRN Reason: Protocol Last Admin: 02/21/17 15:00 Dose: 8 ml Vancomycin HCl 1,250 mg/ (Dextrose) 250 mls @ 125 mls/hr IVPB DAILY@1400 [facility] PRN Reason: Protocol Last Admin: 02/21/17 13:31 Dose: 125 mls/hr Insulin Aspart (Novolog Vial Sliding Scale -) 1 vial SQ ACHS [facility] PRN Reason: Protocol Last Admin: 02/21/17 11:44 Dose: Not Given Insulin Detemir (Levemir Vial) 15 units SQ HS [facility] Last Admin: 02/20/17 22:06 Dose: 15 units Nystatin (Nystop Powder -) 1 applic TP DAILY [facility] Last Admin: 02/21/17 10:41 Dose: 1 applic Pantoprazole Sodium (Protonix -) 40 mg PO DAILY [facility] Last Admin: 02/21/17 10:42 Dose: 40 mg Silver Sulfadiazine (Silvadene -) 1 applic TP DAILY [facility] Last Admin: 02/21/17 10:41 Dose: 1 applic - Objective Vital Signs: Vital Signs Temperature 98.3 F 02/21/17 14:55 Pulse Rate 95 H 02/21/17 14:55 Respiratory Rate 20 02/21/17 14:55 Blood Pressure 109/52 02/21/17 14:55 O2 Sat by Pulse Oximetry (%) 95 02/21/17 09:00 Constitutional: Yes: No Distress, Calm, Obese Cardiovascular: Yes: Regular Rate and Rhythm Respiratory: Yes: Regular, CTA Bilaterally Gastrointestinal: Yes: Normal Bowel Sounds, Soft Musculoskeletal: Yes: WNL Extremities: Yes: Other Neurological: Yes: Alert, Oriented Psychiatric: Yes: Alert, Oriented Labs: CBC, BMP 02/21/17 07:40 02/21/17 07:40 INR, PTT INR 1.54 (0.82-1.09) H 02/12/17 05:00 Assessment/Plan Problem List - Problems (1) Asthma Code(s): J45.909 - UNSPECIFIED ASTHMA, UNCOMPLICATED Qualifiers: Asthma severity: mild intermittent (2) Cellulitis Code(s): L03.90 - CELLULITIS, UNSPECIFIED Qualifiers: Site of cellulitis of extremity: lower extremity Laterality: right (3) Obesity Code(s): E66.9 - OBESITY, UNSPECIFIED Qualifiers: Obesity type: due to excess calories Body mass index: BMI 50.0-59.9 (4) Acute renal failure Code(s): N17.9 - ACUTE KIDNEY FAILURE, UNSPECIFIED (5) Chronic cellulitis Code(s): L03.90 - CELLULITIS, UNSPECIFIED (6) DM2 (diabetes mellitus, type 2) Code(s): E11.9 - TYPE 2 DIABETES MELLITUS WITHOUT COMPLICATIONS Qualifiers: Diabetes mellitus complication detail: with other circulatory complications (7) Leukocytosis Code(s): D72.829 - ELEVATED WHITE BLOOD CELL COUNT, UNSPECIFIED (8) Sepsis Code(s): A41.9 - SEPSIS, UNSPECIFIED ORGANISM Qualifiers: Sepsis type: sepsis due to unspecified organism Qualified Code(s): A41.9 - Sepsis, unspecified organism (9) Fever Code(s): R50.9 - FEVER, UNSPECIFIED plan continue abx patient to get vanco for 10 more days check trough rest as per primary watch for any further fevers
== END 2017-02-21 19:17 | DRG 720 ==
LOC: JER 16:25 → JERBED 20:59 → J8W 22:10 → JICU 02-11 16:25 → J6S 02-14 22:26
PROVIDERS: ADMIT Family Medicine; ATTEND Family Medicine
PROC: 06H033Z Insertion of Infusion Device into Inferior Vena Cava, Percutaneous Approach (ICD-10-PCS; principal; 2017-02-20)
DX: A41.9 Sepsis, unspecified organism (principal); L03.116 Cellulitis of left lower limb; L55.1 Sunburn of second degree; E87.2 Acidosis; R65.20 Severe sepsis without septic shock; E66.01 Morbid (severe) obesity due to excess calories; E11.22 Type 2 diabetes mellitus with diabetic chronic kidney disease; N17.9 Acute kidney failure, unspecified; Z68.42 Body mass index [BMI] 45.0-49.9, adult; I48.91 Unspecified atrial fibrillation; E11.65 Type 2 diabetes mellitus with hyperglycemia; G47.33 Obstructive sleep apnea (adult) (pediatric); Z22.322 Carrier or suspected carrier of Methicillin resistant Staphylococcus aureus; Z79.01 Long term (current) use of anticoagulants; F31.9 Bipolar disorder, unspecified; Z79.4 Long term (current) use of insulin; Z88.0 Allergy status to penicillin; I87.8 Other specified disorders of veins; N18.9 Chronic kidney disease, unspecified; I89.0 Lymphedema, not elsewhere classified; I83.018 Varicose veins of right lower extremity with ulcer other part of lower leg; I83.028 Varicose veins of left lower extremity with ulcer other part of lower leg; Z51.89 Encounter for other specified aftercare
CPT/HCPCS: 36415; 36569; 36600; 71010-TC; 73700-TC-RT; 76775-TC; 76856-TC; 77001-TC; 80048; 80053; 81003; 81015; 82009; 82436; 82553; 82570; 82803; 83036; 83605; 83735; 84100; 84133; 84300; 84439; 84443; 84480; 84484; 84540; 85025; 85027; 85610; 85651; 85730; 87040; 87070; 87086; 87186; 87205; 93005; 93010; 93306-TC; 97116-GP; 97162-GP; 99284-25; C1751; G0480; J1644

== ENCOUNTER → 2017-02-26 | Day surgery (SDC) | payer OTHER | LOC: JRADIR 16:04 | PROVIDERS: ATTEND Family Medicine ==

== ENCOUNTER 2017-06-18 13:01 | Inpatient (IN) | payer OTHER ==
[2017-06-18] MEDS ORDERED: morphine CARPU-JECT 4 MG/1 ML DISP.SYRIN IVPUSH ONE (13:44)
--- NOTE | 2017-06-18 13:44 | PDOC ---
History of Present Illness - General Chief Complaint: Weakness Stated Complaint: WEAKNESS Time Seen by Provider: 06/18/17 13:05 History Source: Patient - History of Present Illness Occurred: reports: other Severity: Yes: severe Lower Extremity Pain Location: bilateral: leg Past History - Past Medical History Allergies/Adverse Reactions: Allergies Allergy/AdvReac Type Severity Reaction Status Date / Time nut - unspecified Allergy Verified 06/18/17 13:56 Penicillins Allergy Verified 06/18/17 13:56 Home Medications: Ambulatory Orders Insulin Sliding Scale [Novolog Vial Sliding Scale -] See Protocol SQ ACHS #7 pen 09/19/15 Albuterol Sulfate Inhaler - [Ventolin HFA Inhaler -] 1 - 2 inh PO Q4H #1 inhaler 10/09/15 Insulin Detemir [Levemir Flextouch] 5 unit SQ HS #0 10/09/15 Oxycodone HCl [Roxicodone -] 5 mg PO Q6H PRN #10 tablet MDD 4 10/09/15 Pantoprazole Sodium [Protonix -] 40 mg PO BID #60 tablet.ec 10/09/15 Clindamycin [Cleocin -] 300 mg PO BID 10/20/15 Gabapentin 0 mg PO DAILY 02/09/17 Multivitamin [Poly-Vitamin] 1 each PO DAILY 02/09/17 Acetaminophen [Tylenol .Regular Strength -] 650 mg PO Q6H PRN #0 tablet Apixaban [Eliquis -] 5 mg PO BID tablet 02/20/17 Bacitracin - [Bacitracin Topical Ointment -] 1 applic TP BID tube 02/20/17 Budesonide/Formeterol Fumarate [SYMBICORT 80/4.5mcg -] 2 puff IH BID inhaler Diltiazem [Cardizem -] 30 mg PO QID tablet 02/20/17 Heparin - 5,000 unit IVPUSH PRN PRN #0 vial 02/20/17 Insulin (Levemir) [Levemir Vial] 15 units SQ HS ml 02/20/17 Insulin Sliding Scale [Novolog Vial Sliding Scale -] 1 vial SQ ACHS units 02/20 Nystatin Powder [Nystop Powder -] 1 applic TP DAILY applic 02/20/17 Picc Line Flush [Picc Line Flush -] 8 ml IVPUSH PRN PRN #0 ml 02/20/17 Silver Sulfadiazine 1% Top Cr [Silvadene -] 1 applic TP DAILY jar 02/20/17 Vancomycin 1,250 mg IVPB DAILY@1400 10 Days vial 02/20/17 Anemia: No Asthma: No COPD: No Diabetes: Yes GI Disorders: (Yes; gastritis) - Suicide/Smoking/Psychosocial Hx Smoking History: Never smoked Have you smoked in the past 12 months: No Number of Cigarettes Smoked Daily: 0 Hx Alcohol Use: No Drug/Substance Use Hx: No Substance Use Type: None Hx Substance Use Treatment: No Review of Systems - Review of Systems Constitutional: No: Chills, Fever Respiratory: No: Shortness of Breath Cardiac (ROS): No: Palpitations *Physical Exam - Physical Exam General Appearance: Yes: Appropriately Dressed, Severe Distress HEENT: positive: Normal Voice Neck: positive: Supple Respiratory/Chest: positive: Lungs Clear, Normal Breath Sounds. negative: Respiratory Distress Cardiovascular: positive: Regular Rate, S1, S2 Extremity: positive: Other (chronic venous stasis ulcers with deep ulcers over left heel and lateral aspect of left leg, no overt signs of cellulitis, skin colder to her right lower extremity compared to left lower extremity with pedal pulses intact) Integumentary: positive: Dry, Warm Neurologic: positive: Fully Oriented, Alert, Normal Mood/Affect ED Treatment Course - LABORATORY CBC & Chemistry Diagram: 06/18/17 14:30 06/18/17 14:30 - RADIOLOGY Radiology Studies Ordered: Category Date Time Status ANKLE & FOOT-LEFT* [RAD] Stat Radiology 06/18/17 13:41 Ordered ANKLE & FOOT-RIGHT* [RAD] Stat Radiology 06/18/17 13:41 Ordered CHEST X-RAY PORTABLE* [RAD] Stat Radiology 06/18/17 13:40 Ordered DUPLEX ART. LOWER COMPL US [US] Stat Ultrasound 06/18/17 13:42 Ordered DUPLEX VASCUL US-2LEGS [US] Stat Ultrasound 06/18/17 13:43 Ordered Medical Decision Making - Medical Decision Making 06/18/17 13:43 52-year-old morbidly obese female, history of diabetes, afin on eliquis and cardizem, gastritis, chronic lower ext venous stasis and ulcers, cellulitis, follows up with Dr. Calderon of vascular but lost to wound care since last month per pt, here with severe pain to bilateral lower extremity that started today per patient. States she has not been able to bear weight for 3 days. Denies fever or chills. See exam Chronic venous stasis with ulcers bilaterally, here with worsening pain and unable to bear weight Appears in significant pain but stable otherwise with bilateral lower extremity venous stasis ulcers with weeping, pedal pulses intact, no obvious cellulitis -pain control -labs -XR -US -admit 06/18/17 14:51 06/18/17 14:54 Wbc 26. Antibiotics in progress. Case discussed with who states patient is no longer his. States patient should be admitted to service *DC/Admit/Observation/Transfer Diagnosis at time of Disposition: Venous stasis, Unable to ambulate Ulcers of both lower extremities Qualifiers: Non-pressure ulcer stage: unspecified non-pressure ulcer stage Qualified Code(s ): L97.919 - Non-pressure chronic ulcer of unspecified part of right lower leg with unspecified severity; L97.929 - Non-pressure chronic ulcer of unspecified part of left lower leg with unspecified severity; L97.929 - Non-pressure chronic ulcer of unspecified part of left lower leg with unspecified severity; L97.929 - Non-pressure chronic ulcer of unspecified part of left lower leg with unspecified severity; L97.929 - Non-pressure chronic ulcer of unspecified part of left lower leg with unspecified severity - Discharge Dispostion Condition at time of disposition: Fair Admit: Yes - Referrals - Patient Instructions - Post Discharge Activity
[2017-06-18] MEDS ORDERED: HYDROmorphone HCL CARPU-JECT 2 MG/1 ML DISP.SYRIN IVPB ONE (14:02)
[2017-06-18] MEDS ORDERED: HYDROmorphone HCL CARPU-JECT 2 MG/1 ML DISP.SYRIN ONE (14:03)
[2017-06-18] MEDS ORDERED: VANCOMYCIN 1,000 MG in DEXTROSE 5%-WATER - 250 ML IVPB ONE (14:26)
[2017-06-18] MEDS ORDERED: AZTREONAM 2 GM in DEXTROSE 5%-WATER - 100 ML IV ONE (14:38)
[2017-06-18 14:44] LABS: HEMOGLOBIN 12.7 GM/dL (10.7-15.3); MCH 26.9 pg (25.7-33.7); MCHC 31.6 g/dl (32.0-36.0); MEAN CELL VOLUME 84.9 fl (80-96); MEAN PLT VOLUME 8.7 fl (7.5-11.1); PLATELET COUNT 597 K/MM3 (134-434); RBC 4.71 M/mm3 (3.60-5.2); RDW 14.5 % (11.6-15.6); WHITE BLOOD COUNT 26.7 K/mm3 (4.0-10.0)
[2017-06-18] MEDS ORDERED: VANCOMYCIN 1 GRAM (PRE-DOCKED) 1,000 MG/250 ML BAG IVPB ONE (15:10)
[2017-06-18 15:25] LABS: ALBUMIN 3.2 g/dl (3.4-5.0); ANION GAP 18 (8-16); BILIRUBIN,TOTAL 0.3 mg/dL (0.2-1.0); CALCIUM 9.9 mg/dL (8.5-10.1); CHLORIDE 95 mmol/L (98-107); CO2 9 mmol/L (21-32); CREATININE 5.6 mg/dL (0.55-1.02); GLUCOSE,RANDOM 236 mg/dL (74-106); SGOT/AST 7 U/L (15-37); SGPT/ALT 29 U/L (12-78); TOT PROT 8.7 g/dl (6.4-8.2)
[2017-06-18 15:26] LABS: ALK PHOS 170 U/L (45-117)
[2017-06-18 16:03] LABS: BLOOD UREA NITROGEN 134 mg/dL (7-18); POTASSIUM 8.5 mmol/L (3.5-5.1); SODIUM 121 mmol/L (136-145)
[2017-06-18] MEDS ORDERED: CALCIUM GLUCONATE 10% - 1,000 MG/10 ML VIAL IVPB ONE (16:10)
[2017-06-18] MEDS ORDERED: SODIUM BICARBONATE 8.4% 50 MEQ/50 ML DISP.SYRIN IVPUSH ONE (16:10)
[2017-06-18] MEDS ORDERED: ALBUTEROL SO4 0.5 % INH SOLN 2.5 MG/0.5 ML VIAL.NEB. NEB ONE ×2 (16:11→16:13)
[2017-06-18] MEDS ORDERED: INSULIN REGULAR HUMAN 100 UNITS/ML *VIAL IVPUSH ONE ×2 (16:11→16:33)
[2017-06-18] MEDS ORDERED: DEXTROSE 50%-WATER - 25 GM/50 ML VIAL IVPUSH ONE ×2 (16:12→16:33)
[2017-06-18] MEDS ORDERED: SODIUM POLYSTYRENE SULFONATE 15 GM/60 ML BOTTLE PO ONE (16:12)
[2017-06-18] MEDS ORDERED: DEXTROSE 50%-WATER 25 GM/50 ML DISP.SYRIN ONE ×2 (16:24→16:36)
[2017-06-18] MEDS ORDERED: CALCIUM GLUCONATE 10% - 1,000 MG/10 ML VIAL ONE (16:24)
[2017-06-18] MEDS ORDERED: SODIUM POLYSTYRENE SULFONATE 15 GM/60 ML BOTTLE ONE (16:24)
[2017-06-18] MEDS ORDERED: SODIUM BICARBONATE 8.4% - 50 ML ONE (16:24)
--- NOTE | 2017-06-18 16:25 | CONSULT ---
Consult Consult Specialty:: Nephrology Reason for Consultation:: NOVA - History of Present Illness Chief Complaint: weakness and fatigue History of Present Illness: Pt is a 52 year old female with pmhx of CKD, obesity, DM, a-fib, chronic lower extremity ulcers, cellulitis, and gastritis who presents with weakness and fatigue. She also complains of lower extremity pain. She has not gone to wound care for about one week. She denies fevers or chills. She is accompanies by her brother. She was found to have elevated potassium and was found to be in renal failure. She denies shortness of breath. She denies palpitations. - Past Medical History Cardio/Vascular: Yes: AFIB Pulmonary: Yes: Asthma Gastrointestinal: Yes: Other (gallstones) Renal/: Yes: Renal Inusuff Infectious Disease: Yes: Other (LE cellulitis) Psych: Yes: Bipolar Endocrine: Yes: Diabetes Mellitus Dermatology: Yes: Cellulitis (b/l LE with ulcerations) - Alcohol/Substance Use Hx Alcohol Use: No History of Substance Use: reports: Prescription (narcotics) - Smoking History Smoking history: Never smoked Have you smoked in the past 12 months: No Aproximately how many cigarettes per day: 0 Home Medications - Allergies Allergies/Adverse Reactions: Allergies Allergy/AdvReac Type Severity Reaction Status Date / Time nut - unspecified Allergy Verified 06/18/17 13:56 Penicillins Allergy Verified 06/18/17 13:56 - Home Medications Home Medications: Ambulatory Orders Insulin Sliding Scale [Novolog Vial Sliding Scale -] See Protocol SQ ACHS #7 pen 09/19/15 Albuterol Sulfate Inhaler - [Ventolin HFA Inhaler -] 1 - 2 inh PO Q4H #1 inhaler 10/09/15 Insulin Detemir [Levemir Flextouch] 5 unit SQ HS #0 10/09/15 Oxycodone HCl [Roxicodone -] 5 mg PO Q6H PRN #10 tablet MDD 4 10/09/15 Pantoprazole Sodium [Protonix -] 40 mg PO BID #60 tablet.ec 10/09/15 Clindamycin [Cleocin -] 300 mg PO BID 10/20/15 Gabapentin 0 mg PO DAILY 02/09/17 Multivitamin [Poly-Vitamin] 1 each PO DAILY 02/09/17 Acetaminophen [Tylenol .Regular Strength -] 650 mg PO Q6H PRN #0 tablet Apixaban [Eliquis -] 5 mg PO BID tablet 02/20/17 Bacitracin - [Bacitracin Topical Ointment -] 1 applic TP BID tube 02/20/17 Budesonide/Formeterol Fumarate [SYMBICORT 80/4.5mcg -] 2 puff IH BID inhaler Diltiazem [Cardizem -] 30 mg PO QID tablet 02/20/17 Heparin - 5,000 unit IVPUSH PRN PRN #0 vial 02/20/17 Insulin (Levemir) [Levemir Vial] 15 units SQ HS ml 02/20/17 Insulin Sliding Scale [Novolog Vial Sliding Scale -] 1 vial SQ ACHS units 02/20 Nystatin Powder [Nystop Powder -] 1 applic TP DAILY applic 02/20/17 Picc Line Flush [Picc Line Flush -] 8 ml IVPUSH PRN PRN #0 ml 02/20/17 Silver Sulfadiazine 1% Top Cr [Silvadene -] 1 applic TP DAILY jar 02/20/17 Vancomycin 1,250 mg IVPB DAILY@1400 10 Days vial 02/20/17 Family Disease History - Family Disease History Family Disease History: Other: Brother (stomach cancer), Sister (breast cancer) Review of Systems - Review of Systems Constitutional: reports: Malaise. denies: Chills Eyes: reports: No Symptoms HENT: reports: No Symptoms Neck: reports: No Symptoms Cardiovascular: reports: Edema Respiratory: reports: No Symptoms Genitourinary: denies: Dysuria Musculoskeletal: reports: No Symptoms Integumentary: reports: Erythema Hematology/Lymphatic: reports: No Symptoms Psychiatric: reports: No Symptoms Physical Exam Vital Signs: Vital Signs Temperature 97.3 F L 06/18/17 13:01 Pulse Rate 90 06/18/17 13:01 Respiratory Rate 18 06/18/17 13:01 Blood Pressure 106/90 06/18/17 13:01 O2 Sat by Pulse Oximetry (%) 100 06/18/17 13:01 Constitutional: Yes: Calm Eyes: Yes: Conjunctiva Clear HENT: Yes: Atraumatic Neck: Yes: Supple Cardiovascular: Yes: S2 Respiratory: Yes: CTA Bilaterally Gastrointestinal: Yes: Soft, Abdomen, Obese Renal/: Yes: Incontinence Musculoskeletal: Yes: Muscle Weakness Edema: Yes Edema: LLE: 2+, RLE: 2+ Wound/Incision: Yes: Open to air, Draining, Reddened Neurological: Yes: Oriented Psychiatric: Yes: Oriented Labs: CBC, BMP 06/18/17 14:30 06/18/17 14:30 Laboratory Tests 02/10/17 02/10/17 02/11/17 06:30 07:00 06:00 WBC Hgb Plt Count Sodium Potassium Chloride Carbon Dioxide Anion Gap BUN 56 H D Creatinine 2.6 H D 3.1 H Random Glucose Lactic Acid 3.3 H* 06/18/17 06/18/17 14:30 14:30 WBC 26.7 H D Hgb 12.7 D Plt Count 597 H D Sodium 121 L* Potassium 8.5 H* Chloride 95 L Carbon Dioxide 9 L Anion Gap 18 H BUN 134 H* Creatinine 5.6 H Random Glucose 236 H Lactic Acid Imaging - Results Ultrasound: Report Reviewed Problem List - Problems (1) Hyperkalemia Code(s): E87.5 - HYPERKALEMIA (2) Ulcers of both lower extremities Code(s): L97.919 - NON-PRS CHRONIC ULC UNSP PRT OF R LOW LEG W UNSP SEVERITY; L97.929 - NON-PRS CHRONIC ULC UNSP PRT OF L LOW LEG W UNSP SEVERITY Qualifiers: Non-pressure ulcer stage: unspecified non-pressure ulcer stage Qualified Code(s): L97.919 - Non-pressure chronic ulcer of unspecified part of right lower leg with unspecified severity; L97.929 - Non-pressure chronic ulcer of unspecified part of left lower leg with unspecified severity; L97.929 - Non- pressure chronic ulcer of unspecified part of left lower leg with unspecified severity; L97.929 - Non-pressure chronic ulcer of unspecified part of left lower leg with unspecified severity; L97.929 - Non-pressure chronic ulcer of unspecified part of left lower leg with unspecified severity (3) Unable to ambulate Code(s): R26.2 - DIFFICULTY IN WALKING, NOT ELSEWHERE CLASSIFIED (4) NOVA (acute kidney injury) Code(s): N17.9 - ACUTE KIDNEY FAILURE, UNSPECIFIED (5) Acute renal failure Code(s): N17.9 - ACUTE KIDNEY FAILURE, UNSPECIFIED (6) Afib Code(s): I48.91 - UNSPECIFIED ATRIAL FIBRILLATION Assessment/Plan Current Medications Generic Name Dose Route Start Last Admin Trade Name Frepato PRN Reason Stop Dose Admin Apixaban 5 mg 06/18/17 22:00 Eliquis - PO BID LANCE Chlorhexidine Gluconate 1 applic 06/18/17 22:00 Hibiclens For Decolonization - TP HS LANCE Diltiazem HCl 30 mg 06/18/17 18:00 Cardizem - PO QID LANCE Gabapentin 300 mg 06/19/17 10:00 Neurontin - PO DAILY LANCE Insulin Aspart 1 vial 06/18/17 16:30 Novolog Vial Sliding Scale - SQ ACHS [facility] Protocol Mupirocin 1 applic 06/18/17 22:00 Bactroban Ointment (For Decolonization) - NS 06/23/17 21:59 BID LANCE Pantoprazole Sodium 40 mg 06/18/17 22:00 Protonix - PO BID [facility] Impression 1. NOVA 2. hyperkalemia with ECG changes 3. obesity 4. DM 5. a-fib 6. HTN 7. chronic lower extremity ulcers 8. gastritis Plan - give insulin, d50, kayexylate, saline, bicarb, albuterol nebs, calcium gluconate - called vascular for access - admit to ICU - will arrange for urgent HD - discussed dialysis with pt and her brother at length - would hydrate pt - place cuevas catheter - check ua and electrolytes - will need to be dialyzed at bedside in ICU with monitor - discussed with ER team Dr Epstein
[2017-06-18] MEDS ORDERED: INSULIN REGULAR HUMAN 100 UNITS/ML *VIAL ONE (16:26)
--- NOTE | 2017-06-18 16:28 | HP ---
CHIEF COMPLAINT: bilateral leg wounds, weakness, altered mental status, poor PO intake, falls PCP: HISTORY OF PRESENT ILLNESS: Patient is a 52 year old morbidly obese female with a significant past medical history of diabetes mellitus, atrial fibrillation on Eliquis 5mg BID at home and cardizem, gastritis, chronic lower extremity venous status ulcers with bilateral cellulitis. Patient follows Dr. Calderon in the wound clinic for her bilateral cellulitis wounds however, she has not followed up with Dr. Calderon for the last few months. Patient seen in the ICU after admission and noted to have altered mental status, and severe electrolyte imbalance. On admission, her creatinine was 5.6, WBC 26, sodium 121, potassium 8.5. Dr. Epstein was consulted for emergent dialysis. A dialysis cathether was placed by Dr. Calderon. Patient's brother was in the room and provided some of the history, however, he is a poor historian. Brother reports that patient has fallen multiple times at home and was incontinent. He reports that she did her own wound care but he cannot recall her current medications or aware if she is complaint with her home meds. He reported that patient was on Clindamycin for her wounds. Brother reports AMS and lethargy for last 3 days at home. Will order head CT for AMS. Bilateral vascular study negative for DVT Patient has AMS likely due to sepsis and unable to take her oral anticoagulant, she is NSR on monitoring analyst. Will place on a heparin drip since she has AMS and unable to take her eliquis 5mg BID at this time. Will consult cardiology. ER course was notable for: (1) wbc 26.7 with chills noted (2) na 121, K. 8.5, bun 134, creat 5.6, gluc 236: given insulin, d50, kayexelate , saline, and calcium gluconate (3) renal consult stat for 8.5K, dialysis today as per renal (4) bp 86/50 in ICU, on venti mask (5) severe bilateral leg wounds with multiple diabetic ulcers, with reddened skin, foul odor on both bilateral lower extremities and yellow slough. The dressing are (6) trialysis catheter put in by Dr Calderon for emergent dialysis Recent Travel: n/a PAST MEDICAL HISTORY: diabetes mellitus, atrial fibrillation on Eliquis 5mg BID at home and cardizem, gastritis, chronic lower extremity venous status ulcers with bilateral cellulitis. PAST SURGICAL HISTORY: Social History: Smoking: n/a Alcohol: n/a Drugs: n/a Family History: Allergies nut - unspecified Allergy (Verified 06/18/17 13:56) Penicillins Allergy (Verified 06/18/17 13:56) HOME MEDICATIONS: Home Medications Medication Instructions Recorded Insulin Sliding Scale [Novolog See Protocol SQ ACHS #7 pen 09/19/15 Vial Sliding Scale -] Albuterol Sulfate Inhaler - 1 - 2 inh PO Q4H #1 inhaler 10/09/15 [Ventolin HFA Inhaler -] Insulin Detemir [Levemir Flextouch] 5 unit SQ HS #0 10/09/15 Oxycodone HCl [Roxicodone -] 5 mg PO Q6H PRN #10 tablet MDD 4 10/09/15 Pantoprazole Sodium [Protonix -] 40 mg PO BID #60 tablet.ec 10/09/15 Clindamycin [Cleocin -] 300 mg PO BID 10/20/15 Gabapentin 0 mg PO DAILY 02/09/17 Multivitamin [Poly-Vitamin] 1 each PO DAILY 02/09/17 Acetaminophen [Tylenol .Regular 650 mg PO Q6H PRN #0 tablet 02/20/17 Strength -] Apixaban [Eliquis -] 5 mg PO BID tablet 02/20/17 Bacitracin - [Bacitracin Topical 1 applic TP BID tube 02/20/17 Ointment -] Budesonide/Formeterol Fumarate 2 puff IH BID inhaler 02/20/17 [SYMBICORT 80/4.5mcg -] Diltiazem [Cardizem -] 30 mg PO QID tablet 02/20/17 Heparin - 5,000 unit IVPUSH PRN PRN #0 vial 02/20/17 Insulin (Levemir) [Levemir Vial] 15 units SQ HS ml 02/20/17 Insulin Sliding Scale [Novolog 1 vial SQ ACHS units 02/20/17 Vial Sliding Scale -] Nystatin Powder [Nystop Powder -] 1 applic TP DAILY applic 02/20/17 Picc Line Flush [Picc Line Flush -] 8 ml IVPUSH PRN PRN #0 ml 02/20/17 Silver Sulfadiazine 1% Top Cr 1 applic TP DAILY jar 02/20/17 [Silvadene -] Vancomycin 1,250 mg IVPB DAILY@1400 10 Days 02/20/17 vial REVIEW OF SYSTEMS CONSTITUTIONAL: Absent: fever, diaphoresis, loss of appetite, weight change HEENT: Absent: rhinorrhea, nasal congestion, throat pain, throat swelling, difficulty swallowing, mouth swelling, ear pain, eye pain, visual changes CARDIOVASCULAR: Absent: chest pain, syncope, palpitations, lightheadedness, peripheral edema RESPIRATORY: Absent: orthopnea, wheezing, stridor, hemoptysis GASTROINTESTINAL: Absent: abdominal pain, abdominal distension, nausea, vomiting, diarrhea, constipation, melena, hematochezia GENITOURINARY: Absent: dysuria, frequency, urgency, hesitancy, hematuria, flank pain, genital pain MUSCULOSKELETAL: Absent: myalgia, arthralgia, joint swelling, back pain, neck pain SKIN: Absent: rash, itching, pallor HEMATOLOGIC/IMMUNOLOGIC: Absent: easy bleeding, easy bruising, lymphadenopathy, frequent infections ENDOCRINE: Absent: unexplained weight gain, unexplained weight loss, heat intolerance, cold intolerance NEUROLOGIC: Absent: headache, focal weakness or paresthesias, dizziness, unsteady gait, seizure, mental status changes, bladder or bowel incontinence PHYSICAL EXAMINATION Vital Signs - 24 hr 06/18/17 13:01 Temperature 97.3 F L Pulse Rate 90 Respiratory 18 Rate Blood Pressure 106/90 O2 Sat by Pulse 100 Oximetry (%) GENERAL: lethargic, ams, CT scan ordered HEAD: Normal with no signs of trauma. EARS, NOSE, THROAT: Ears normal, nares patent, oropharynx clear without exudates. Moist mucous membranes. NECK: Normal range of motion, supple without lymphadenopathy, JVD, or masses. LUNGS: scattered rhonchi bilaterally, on a venti mask HEART: Regular rate and rhythm, hx of afib ABDOMEN: obese abdomen LOWER EXTREMITIES: 2+ pulses, warm, well-perfused. No calf tenderness. No peripheral edema. NEUROLOGICAL: Cranial nerves II-XII intact. Normal speech. Normal gait. PSYCHIATRIC: Cooperative. Good eye contact. Appropriate mood and affect. SKIN: Warm, dry, normal turgor, no rashes or lesions noted, normal capillary refill. Laboratory Results - last 24 hr 06/18/17 06/18/17 06/18/17 14:30 14:30 14:30 WBC 26.7 H D RBC 4.71 D Hgb 12.7 D Hct 40.0 D MCV 84.9 MCH 26.9 MCHC 31.6 L RDW 14.5 Plt Count 597 H D MPV 8.7 Neutrophils % No Result Required. Lymphocytes % No Result Required. ESR Sodium 121 L* Potassium 8.5 H* Chloride 95 L Carbon Dioxide 9 L Anion Gap 18 H BUN 134 H* Creatinine 5.6 H Creat Clearance w eGFR 7.91 Random Glucose 236 H Calcium 9.9 Total Bilirubin 0.3 D AST 7 L ALT 29 Alkaline Phosphatase 170 H C-Reactive Protein 8.0 H Total Protein 8.7 H Albumin 3.2 L 06/18/17 14:30 WBC RBC Hgb Hct MCV MCH MCHC RDW Plt Count MPV Neutrophils % Lymphocytes % ESR 82 H Sodium Potassium Chloride Carbon Dioxide Anion Gap BUN Creatinine Creat Clearance w eGFR Random Glucose Calcium Total Bilirubin AST ALT Alkaline Phosphatase C-Reactive Protein Total Protein Albumin ASSESSMENT/PLAN: Patient is a 52 year old morbidly obese female with a significant past medical history of diabetes mellitus, atrial fibrillation on Eliquis 5mg BID at home and cardizem, gastritis, chronic lower extremity venous status ulcers with bilateral cellulitis. Patient follows Dr. Calderon in the wound clinic for her bilateral cellulitis wounds however, she has not followed up with Dr. Calderon for the last few months. Patient seen in the ICU after admission and noted to have altered mental status, and severe electrolyte imbalance. On admission, her creatinine was 5.6, WBC 26, sodium 121, potassium 8.5. Dr. Epstein was consulted for emergent dialysis. A dialysis cathether was placed by Dr. Calderon. Patient's brother was in the room and provided some of the history, however, he is a poor historian. Brother reports that patient has fallen multiple times at home and was incontinent. He reports that she did her own wound care but he cannot recall her current medications or aware if she is complaint with her home meds. Will order head CT for AMS. Bilateral vascular study negative for DVT Patient has AMS likely due to sepsis and unable to take her oral anticoagulant, she is NSR on monitoring analyst. Will place on a heparin drip since she has AMS and unable to take her eliquis 5mg BID at this time. Will consult cardiology. ID: Severe Sepsis secondary to bilateral lower extremity wounds Given Aztronem 2gram in ED, Vanco 1 gram in ED Antibiotics renally dosed as per ID Lactic acid pending Renal and ID following Neuro: Metabolic encephalopaty secondary to sepsis and electrolyte imbalance CT scan stat Monitor mental status, correct electrolytes na 121, K. 8.5, bun 134, creat 5.6, gluc 236: given insulin, d50, kayexelate, saline, and calcium gluconate Monitor vitals, labs in the setting of sepsis Monitor electrolytes after dialysis Endocrine Diabetes melliltus Novolog sliding scale [id number] in a.m. Cardiology: A.fib, likely prox. afib NSR on monitoring analyst On Eliquis 5mg BID, unable to take PO meds due to AMS Heparin drip initiated Cardiology consult Renal: Renal Disease with severe electrolyte imbalance Creatinine 5.6, K. 8.5, sodium 121 Emergent dialysis today via dialysis catheter Repeat BMP after dialysis F.E.N. Fluids: IVF 100 now to maintain BP Electrolytes: monitor as per renal Nutrition: NPO for AMS Prophylaxis DVT: on heparin drip GI: Protonix iv push Disposition: full code. Visit type - Emergency Visit Emergency Visit: Yes ED Registration Date: 06/18/17 Care time: The patient presented to the Emergency Department on the above date and was hospitalized for further evaluation of their emergent condition. - New Patient This patient is new to me today: Yes Date on this admission: 06/18/17 - Critical Care Critical Care patient: Yes Total Critical Care Time (in minutes): 60 Critical Care Statement: The care of this patient involved high complexity decision making to prevent further life threatening deterioration of the patient 's condition and/or to evaluate & treat vital organ system(s) failure or risk of failure.
[2017-06-18] MEDS ORDERED: ALBUTEROL SO4 0.083% IH SOL 2.5 MG/3 ML VIAL.NEB. NEB ONE (16:30)
[2017-06-18] MEDS ORDERED: SODIUM CHLORIDE 1,000 ML IV STA (17:07)
--- NOTE | 2017-06-18 17:46 | PN ---
Progress Note (short form) - Note Progress Note: Vascular Surgery Pt seen and examined. Trialysis cath placed in left femoral vein. Guidewire removed. All ports flushed. Can use for HD Wesley Calderon DO
[2017-06-18] MEDS ORDERED: dilTIAZem HCL 30 MG TABLET (FP) PO SCH (18:00)
--- NOTE | 2017-06-18 18:06 | CONSULT ---
Consultation: REQUESTING PROVIDER: CONSULT REQUEST: We have been asked to medically evaluate this patient for altered mental status secondary to NOVA for stat dialysis . HISTORY OF PRESENT ILLNESS: Patient is non responsive in ICU and history was obtained from the charts and brother by the bedside. 52-year-old morbidly obese female, PMHx DM, afib on eliquis and cardizem, gastritis, chronic lower ext venous stasis and ulcers, with cellulitis lost to follow up in wound clinic (Dr. Calderon)for 4 months. Per brother, patient had been dressing the wounds by herself at home, and had been on clindamycin at home. Prior to the past week, pt had been ambulating with a walker, but has now been unable to ambulate and fell while bending over more than 3 days ago (refused to be BIBA) and since then has been sleeping upright (in a chair), brother could not say if SOB or not, but altered mental status with increased somnolence for at least 3 days. ED Course: Pt was found to have hyperkalemia with NOVA and EKG changes in ED, received insulin, d50, kayexylate, saline, bicarb, albuterol nebs, calcium gluconate. CXR: Showed right lung infiltrates. Peripheral venous cultures drawn in ED and received aztreonam and vancomycin. Patient also received morphine in the ED ICU: Patient had a trialysis catheter put in by Dr Calderon in the ICU for emergent dialysis, and Dr Epstein is on board . REVIEW OF SYSTEMS: Could not be done because patient was non responsive. PHYSICAL EXAMINATION Vital Signs - 24 hr Vital Signs Temp 97.3 F L 06/18/17 13:01 Pulse 90 06/18/17 13:01 Resp 18 06/18/17 13:01 BP 106/90 06/18/17 13:01 Pulse Ox 100 06/18/17 13:01 Intake & Output 06/17/17 06/18/17 06/18/17 23:59 11:59 23:59 Weight 99.79 kg Other: Height 1.65 m Body Mass Index (BMI) 36.6 GENERAL: Obese, lethargic, not communicating, on ventimask-5L sating 100%. HEAD: Normal with no signs of trauma. EYES: No spontaneous eye opening, bilaterally miosed pupils EARS, NOSE, THROAT: Ears normal, nares patent, oropharynx clear without exudates. Moist mucous membranes. NECK: Normal range of motion, supple without lymphadenopathy, JVD, or masses. LUNGS: reduced breath sounds on L with coarse creps R, HEART: Regular rate and rhythm, normal S1 and S2 ABDOMEN: Obese. MUSCULOSKELETAL: L heel ulcer clean regular base 4x7cm, Bilateral multiple size ulcers both shins and calves, dirty, foul smelling, greenish (previously covered in filthy dressing) UPPER EXTREMITIES: No edema. LOWER EXTREMITIES: Bilateral tinea pedis. Bilateral multiple multi-sized ulcers both shins and calves, NEUROLOGICAL: Miosed pupils bilaterally, non responsive to verbal or painful stimulus PSYCHIATRIC: Unable to assess. Lines: Johnson, Nasal cannular, trialysis catheter Laboratory Results - last 24 hr 06/18/17 06/18/17 06/18/17 14:30 14:30 14:30 WBC 26.7 H D RBC 4.71 D Hgb 12.7 D Hct 40.0 D MCV 84.9 MCH 26.9 MCHC 31.6 L RDW 14.5 Plt Count 597 H D MPV 8.7 Neutrophils % No Result Required. Lymphocytes % No Result Required. ESR Sodium 121 L* Potassium 8.5 H* Chloride 95 L Carbon Dioxide 9 L Anion Gap 18 H BUN 134 H* Creatinine 5.6 H Creat Clearance w eGFR 7.91 Random Glucose 236 H Calcium 9.9 Total Bilirubin 0.3 D AST 7 L ALT 29 Alkaline Phosphatase 170 H C-Reactive Protein 8.0 H Total Protein 8.7 H Albumin 3.2 L 06/18/17 14:30 WBC RBC Hgb Hct MCV MCH MCHC RDW Plt Count MPV Neutrophils % Lymphocytes % ESR 82 H Sodium Potassium Chloride Carbon Dioxide Anion Gap BUN Creatinine Creat Clearance w eGFR Random Glucose Calcium Total Bilirubin AST ALT Alkaline Phosphatase C-Reactive Protein Total Protein Albumin Active Medications Generic Name Dose Route Start Last Admin Trade Name Freq PRN Reason Stop Dose Admin Apixaban 5 mg 06/18/17 22:00 Eliquis - PO BID [facility] Chlorhexidine Gluconate 1 applic 06/18/17 22:00 Hibiclens For Decolonization - TP HS LANCE Diltiazem HCl 30 mg 06/18/17 18:00 Cardizem - PO QID LANCE Gabapentin 300 mg 06/19/17 10:00 Neurontin - PO DAILY LANCE Sodium Chloride 1,000 mls @ 1,000 mls/hr 06/18/17 17:07 Normal Saline - IV 06/18/17 18:06 ASDIR STA Insulin Aspart 1 vial 06/18/17 16:30 Novolog Vial Sliding Scale - SQ ACHS [facility] Protocol Mupirocin 1 applic 06/18/17 22:00 Bactroban Ointment (For Decolonization) - NS 06/23/17 21:59 BID [facility] Pantoprazole Sodium 40 mg 06/18/17 22:00 Protonix - PO BID [facility] ASSESSMENT/PLAN: 52-year-old morbidly obese female, PMHx DM, afib on eliquis and cardizem, gastritis, chronic lower ext venous stasis and ulcers, with cellulitis presented with AMS, hx of falls on eliquis and found to have NOVA, now for emergent dialysis Neuro: Acute Metabolic encephalopathy secondary to sepsis and electrolyte imbalance CT scan head w/o contrast stat na 121, K. 8.5, bun 134, creat 5.6, gluc 236: given insulin, d50, kayexelate , saline, and calcium gluconate Emergent dialysis Repeat electrolytes Respiratory: R lung infiltrate R/O aspiration PNA Acute hypoxic respiratory failure On venturimask-50% Titrate oxygen as needed ABGs Got Aztronem 2gram and Vanco 1 gram in ED ID: Severe Sepsis secondary to bilateral lower extremity wounds R/O aspiration PNA Got Aztronem 2gram and Vanco 1 gram in ED Antibiotics renally dosed as per ID Iv Normal saline 500ml bolus stat Lactic acid pending Blood cultures pending UA, Urine cx CXR- R lung infiltrates ID- Dr De Leon [facility]- with hyperglycemia Novolog sliding scale Cardiology: A.fib, likely paroxysmal afib Now NSR on equipment monitor phototypesetting Hx of home Eliquis 5mg BID, unsure of compliance, Although unable to take PO meds due to AMS, hx of falls at home CT head stat may benefit from anticoagulation- pending coags Monitor pressures- may need pressors to maintain MAP> 65 Cardiology consult Renal: NOVA R/O CKD with severe hyperkalemia Creatinine 5.6, K. 8.5, sodium 121 Emergent dialysis today via dialysis catheter iv Normal saline- received boluses in ED Iv Normal saline 500ml bolus stat Repeat BMP after dialysis F.E.N. Fluids: Iv Normal saline 500ml bolus stat Electrolytes: Follow - per renal Nutrition: NPO for AMS Prophylaxis DVT: May benefit from AC if no evidence of ICH GI: Protonix iv push Disposition: full code Monitor in ICU . We will continue to follow the patient. Thank you for this consultative opportunity. Visit type - Emergency Visit Emergency Visit: Yes ED Registration Date: 06/18/17 Care time: The patient presented to the Emergency Department on the above date and was hospitalized for further evaluation of their emergent condition. - New Patient This patient is new to me today: Yes Date on this admission: 06/18/17 - Critical Care Critical Care patient: Yes Total Critical Care Time (in minutes): 50 Critical Care Statement: The care of this patient involved high complexity decision making to prevent further life threatening deterioration of the patient 's condition and/or to evaluate & treat vital organ system(s) failure or risk of failure.
[2017-06-18] MEDS ORDERED: HEPARIN NA (PORCINE) 5,000 UNITS/ML 1ML VIAL IVPUSH PRN ×2 (18:42)
[2017-06-18] MEDS ORDERED: HEPARIN - 25,000 UNIT in SODIUM CHLORIDE 495 ML IV SCH (18:45)
[2017-06-18] MEDS ORDERED: HEPARIN SOD,PORK IN 0.45% NACL 25,000 UNITS/500 ML INFUS.BAG IVPB SCH (19:00)
[2017-06-18 19:04] VITALS: BMI 38.2
[2017-06-18] MEDS: INSULIN SLIDING SCALE (NOVOLOG) 1 VIAL SQ SCH ×2 (19:42→22:49)
--- NOTE | 2017-06-18 20:19 | CONSULT ---
Consult Consult Specialty:: Pulm/CCM Reason for Consultation:: AMS; Sepsis; Metabolic disarray - History of Present Illness History of Present Illness: 52yow PMHx of morbid obesity , DM, afib on eliquis and cardizem, gastritis, chronic lower ext venous stasis ulcers, with cellulitis who was brought in by brother with altered mental status. As per report pt was lost to follow up in wound clinic (Dr. Calderon)for 4 months. Her brother also reported progressive weakness and recent falls over past week. In the ED she was somnolent, T97.3F, HR 90, RR 18, BP 106/90, 100% O2 sat. On exam BLE with malodorus ulcers with cellulitis. Labs notable for K 8.4, WBC 26.7 , BUN/Creat 134/5.6, Na 121,HCO3 9, H/H 12.7/40. Medically treated hyperK with insulin, D50, kayexalate, saline, bicarb, albuterol nebs and calcium gluconate. Started aztreonam and vancomycin empirically and morphine for pain. Nephrology was consulted. A Rt fem trialysis cath was inserted. CXR notable for right lung infiltrates. She was transferred to ICU for emergent dialysis and further management. - History Source History Provided By: Family Member, Medical Record Limitations to Obtaining History: Unresponsive - Past Medical History Cardio/Vascular: Yes: AFIB Pulmonary: Yes: Asthma Gastrointestinal: Yes: Other (gallstones) Renal/: Yes: Renal Inusuff Infectious Disease: Yes: Other (LE cellulitis) Psych: Yes: Bipolar Endocrine: Yes: Diabetes Mellitus Dermatology: Yes: Cellulitis (b/l LE with ulcerations) - Alcohol/Substance Use Hx Alcohol Use: No History of Substance Use: reports: Prescription (narcotics) - Smoking History Smoking history: Never smoked Have you smoked in the past 12 months: No Aproximately how many cigarettes per day: 0 Home Medications - Allergies Allergies/Adverse Reactions: Allergies Allergy/AdvReac Type Severity Reaction Status Date / Time nut - unspecified Allergy Verified 06/18/17 13:56 Penicillins Allergy Verified 06/18/17 13:56 - Home Medications Home Medications: Ambulatory Orders Insulin Sliding Scale [Novolog Vial Sliding Scale -] See Protocol SQ ACHS #7 pen 09/19/15 Albuterol Sulfate Inhaler - [Ventolin HFA Inhaler -] 1 - 2 inh PO Q4H #1 inhaler 10/09/15 Insulin Detemir [Levemir Flextouch] 5 unit SQ HS #0 10/09/15 Oxycodone HCl [Roxicodone -] 5 mg PO Q6H PRN #10 tablet MDD 4 10/09/15 Pantoprazole Sodium [Protonix -] 40 mg PO BID #60 tablet.ec 10/09/15 Clindamycin [Cleocin -] 300 mg PO BID 10/20/15 Gabapentin 0 mg PO DAILY 02/09/17 Multivitamin [Poly-Vitamin] 1 each PO DAILY 02/09/17 Acetaminophen [Tylenol .Regular Strength -] 650 mg PO Q6H PRN #0 tablet Apixaban [Eliquis -] 5 mg PO BID tablet 02/20/17 Bacitracin - [Bacitracin Topical Ointment -] 1 applic TP BID tube 02/20/17 Budesonide/Formeterol Fumarate [SYMBICORT 80/4.5mcg -] 2 puff IH BID inhaler Diltiazem [Cardizem -] 30 mg PO QID tablet 02/20/17 Heparin - 5,000 unit IVPUSH PRN PRN #0 vial 02/20/17 Insulin (Levemir) [Levemir Vial] 15 units SQ HS ml 02/20/17 Insulin Sliding Scale [Novolog Vial Sliding Scale -] 1 vial SQ ACHS units 02/20 Nystatin Powder [Nystop Powder -] 1 applic TP DAILY applic 02/20/17 Picc Line Flush [Picc Line Flush -] 8 ml IVPUSH PRN PRN #0 ml 02/20/17 Silver Sulfadiazine 1% Top Cr [Silvadene -] 1 applic TP DAILY jar 02/20/17 Vancomycin 1,250 mg IVPB DAILY@1400 10 Days vial 02/20/17 Family Disease History - Family Disease History Family Disease History: Other: Brother (stomach cancer), Sister (breast cancer) Review of Systems Unable to obtain ROS, reason: Pt unresponsive Physical Exam Vital Signs: Vital Signs Temperature 98.5 F 06/18/17 19:38 Pulse Rate 80 06/18/17 19:38 Respiratory Rate 18 06/18/17 19:38 Blood Pressure 89/51 06/18/17 19:38 O2 Sat by Pulse Oximetry (%) 100 06/18/17 18:08 Constitutional: Yes: No Distress, Obese Eyes: Yes: WNL, PERRL HENT: Yes: Atraumatic Neck: Yes: Trachea Midline Cardiovascular: Yes: Pulse Irregular, S1, S2 Respiratory: Yes: CTA Bilaterally, On Venti-Mask Gastrointestinal: Yes: Soft, Abdomen, Obese, Hypoactive Bowel Sounds Extremities: Yes: Erythema, Other (BLE malodorous wounds with purulent drainage , red raw tissue and erythema) Edema: LLE: 1+, RLE: 1+ Wound/Incision: Yes: Open to air, Draining Neurological: Yes: Unresponsive Labs: CBC, BMP 06/18/17 14:30 06/18/17 14:30 CBC,CMP WBC 26.7 K/mm3 (4.0-10.0) H D 06/18/17 14:30 RBC 4.71 M/mm3 (3.60-5.2) D 06/18/17 14:30 Hgb 12.7 GM/dL (10.7-15.3) D 06/18/17 14:30 Hct 40.0 % (32.4-45.2) D 06/18/17 14:30 MCV 84.9 fl (80-96) 06/18/17 14:30 MCH 26.9 pg (25.7-33.7) 06/18/17 14:30 MCHC 31.6 g/dl (32.0-36.0) L 06/18/17 14:30 RDW 14.5 % (11.6-15.6) 06/18/17 14:30 Plt Count 597 K/MM3 (134-434) H D 06/18/17 14:30 MPV 8.7 fl (7.5-11.1) 06/18/17 14:30 Neutrophils % No Result Required. 06/18/17 14:30 Neutrophils % (Manual) 92.0 % (42.8-82.8) H* 06/18/17 14:30 Lymphocytes % No Result Required. 06/18/17 14:30 Lymphocytes % (Manual) 6.0 % (8-40) L D 06/18/17 14:30 Monocytes % (Manual) 2 % (3.8-10.2) L 06/18/17 14:30 Platelet Estimate Significant increase 06/18/17 14:30 Platelet Comment Mod plt clumping 06/18/17 14:30 ESR 82 mm/hr (0-30) H 06/18/17 14:30 Sodium 121 mmol/L (136-145) L* 06/18/17 14:30 Potassium 8.5 mmol/L (3.5-5.1) H* 06/18/17 14:30 Chloride 95 mmol/L (98-107) L 06/18/17 14:30 Carbon Dioxide 9 mmol/L (21-32) L 06/18/17 14:30 Anion Gap 18 (8-16) H 06/18/17 14:30 BUN 134 mg/dL (7-18) H* 06/18/17 14:30 Creatinine 5.6 mg/dL (0.55-1.02) H 06/18/17 14:30 Creat Clearance w eGFR 7.91 (>60) 06/18/17 14:30 Random Glucose 236 mg/dL (74-106) H 06/18/17 14:30 Calcium 9.9 mg/dL (8.5-10.1) 06/18/17 14:30 Total Bilirubin 0.3 mg/dL (0.2-1.0) D 06/18/17 14:30 AST 7 U/L (15-37) L 06/18/17 14:30 ALT 29 U/L (12-78) 06/18/17 14:30 Alkaline Phosphatase 170 U/L (45-117) H 06/18/17 14:30 C-Reactive Protein 8.0 MG/DL (0.00-0.3) H 06/18/17 14:30 Total Protein 8.7 g/dl (6.4-8.2) H 06/18/17 14:30 Albumin 3.2 g/dl (3.4-5.0) L 06/18/17 14:30 Current Medications Chlorhexidine Gluconate (Hibiclens For Decolonization -) 1 applic TP HS LANCE Heparin Sodium (Porcine) (Heparin -) 5,000 unit IVPUSH PRN PRN PRN Reason: Heparin HEPARIN SOD,PORK IN 0.45% NACL (Heparin-1/2ns 25,000 Units/500) 25,000 units in 500 mls @ 20 mls/hr IVPB TITR LANCE; 1,000 UNITS/HR PRN Reason: Protocol Sodium Chloride (Normal Saline -) 500 mls @ 500 mls/hr IV ASDIR STA Stop: 06/18/17 21:35 Insulin Aspart (Novolog Vial Sliding Scale -) 1 vial SQ ACHS LANCE PRN Reason: Protocol Last Admin: 06/18/17 19:42 Dose: 10 units Mupirocin (Bactroban Ointment (For Decolonization) -) 1 applic NS BID LANCE Stop: 06/23/17 21:59 Pantoprazole Sodium (Protonix -) 40 mg PO BID LANCE Initial Vital Signs Temp Pulse Resp BP Pulse Ox 97.3 F L 90 18 106/90 100 06/18/17 13:01 06/18/17 13:01 06/18/17 13:01 06/18/17 13:01 06/18/17 13:01 Imaging - Results X-ray: Report Reviewed Problem List - Problems (1) Altered mental status Code(s): R41.82 - ALTERED MENTAL STATUS, UNSPECIFIED (2) Hyperkalemia Code(s): E87.5 - HYPERKALEMIA (3) Ulcers of both lower extremities Code(s): L97.919 - NON-PRS CHRONIC ULC UNSP PRT OF R LOW LEG W UNSP SEVERITY; L97.929 - NON-PRS CHRONIC ULC UNSP PRT OF L LOW LEG W UNSP SEVERITY Qualifiers: Non-pressure ulcer stage: unspecified non-pressure ulcer stage Qualified Code(s): L97.919 - Non-pressure chronic ulcer of unspecified part of right lower leg with unspecified severity; L97.929 - Non-pressure chronic ulcer of unspecified part of left lower leg with unspecified severity; L97.929 - Non- pressure chronic ulcer of unspecified part of left lower leg with unspecified severity; L97.929 - Non-pressure chronic ulcer of unspecified part of left lower leg with unspecified severity; L97.929 - Non-pressure chronic ulcer of unspecified part of left lower leg with unspecified severity (4) Unable to ambulate Code(s): R26.2 - DIFFICULTY IN WALKING, NOT ELSEWHERE CLASSIFIED (5) Venous stasis Code(s): I87.8 - OTHER SPECIFIED DISORDERS OF VEINS (6) NOVA (acute kidney injury) Code(s): N17.9 - ACUTE KIDNEY FAILURE, UNSPECIFIED (7) Acute renal failure Code(s): N17.9 - ACUTE KIDNEY FAILURE, UNSPECIFIED (8) Cellulitis Code(s): L03.90 - CELLULITIS, UNSPECIFIED Qualifiers: Site of cellulitis of extremity: lower extremity Laterality: right (9) DM2 (diabetes mellitus, type 2) Code(s): E11.9 - TYPE 2 DIABETES MELLITUS WITHOUT COMPLICATIONS Qualifiers: Diabetes mellitus complication detail: with other circulatory complications (10) Dehydration Code(s): E86.0 - DEHYDRATION (11) Morbid obesity Code(s): E66.01 - MORBID (SEVERE) OBESITY DUE TO EXCESS CALORIES Assessment/Plan 52yow PMHx of morbid obesity , DM, afib on eliquis and cardizem, gastritis, chronic lower ext venous stasis ulcers, with cellulitis who was brought in by brother with altered mental status m/l 2/2 to sepsis and severe metabolic disarray 2/2 BLE cellulitis. Wound/ID: BLE cellulitis and open ulcers -Wound and vascular consult for wound care -ID consult -f/u burger and wound cultures -Continue empirc coverage with Aztreonam and vancomycin Neuro: AMS 2/2 sepsis and metabolic encephalopathy -Frequent neuro checks -CT head when stable -iHD for severe uremia -Correct hyponatremia 0.5meq/h with 1/2 NS -Aspiration precautions -Low threshold for intubation for airway protection Resp: Hx Asthma, sleep apnea; Rt lung infiltrate on cxr -CPAP for sleep apnea -ABG -Low threshold for intubation -CXR -Albuterol and atrovent nebs CV: Hypotensive 2/2 sepsis; Hx A-fib unclear if compliant with anticoagulation; Severe Hyperkalemia -Fluid bolus as needed -Low dose Sage for MAP>60 -ECG -Trend lactate -TTE -Trend Troponin Renal:NOVA in setting of sepsis; metabolic disarray -Dr Epstein consulted apprec recs -Hyperkalemia-Emergent iHD- no fluid removed; hyponatremia protocol -Monitor BMP and UOP -Correct Na 0.5-1 meq/hr -Urine electrolyte studies -Renal US Heme: Hx of A-fib on Eliquis-unclear if compliant with med; ?Hx DVT -BLE doppler -Check coags -If CT head w/o lesion consider heparin drip for A-fib Endo: Hx DMII -Fingersticks -Insulin drip as per ICU protocol Proph: DVT and GI prophylaxis Radha Domingo, JOHNP CC time 45mins
[2017-06-18] MEDS ORDERED: SODIUM CHLORIDE 500 ML IV STA (20:36)
[2017-06-18] MEDS ORDERED: PHENYLEPHRINE HCL 10 MG/1 ML SINGLE DOSE VIAL ONE (20:54)
[2017-06-18 21:10] LABS: PLATELET ESTIMATE SIGNIFICANT INCREASE
[2017-06-18 21:30] LABS: MAGNESIUM 4.1 mg/dL (1.8-2.4)
[2017-06-18] MEDS: PHENYLEPHRINE HCL 20,000 MCG in SODIUM CHLORIDE 248 ML IVPB SCH (21:30)
[2017-06-18 21:35] LABS: ARTERIAL BLOOD GAS PCO2 23.6 mmHg (35-45); ARTERIAL BLOOD GAS pH 7.37 (7.35-7.45)
[2017-06-18 21:35] LABS: PHOSPHOROUS 8.3 mg/dL (2.5-4.9)
[2017-06-18 21:36] LABS: ALLENS TEST POSITIVE
[2017-06-18 21:38] LABS: ARTERIAL BLD GAS O2 SATURATION 99.9 % (90-98.9)
[2017-06-18] MEDS ORDERED: MUPIROCIN 2% TOPICAL OINTMENT FOR DECOLONIZATION NS SCH (22:00)
[2017-06-18] MEDS ORDERED: APIXABAN 5 MG TABLET PO SCH (22:00)
[2017-06-18] MEDS ORDERED: CHLORHEXIDINE GLUCONATE 4% CLEANSER FOR DECOLONIZATION TP SCH (22:00)
[2017-06-18] MEDS ORDERED: PANTOPRAZOLE 40 MG TABLET (FP) PO SCH (22:00)
[2017-06-18 22:02] LABS: CALCIUM 9.3 mg/dL (8.5-10.1); CO2 9 mmol/L (21-32); CREATININE 5.4 mg/dL (0.55-1.02)
[2017-06-18] MEDS: CHLORHEXIDINE GLUCONATE 4% CLEANSER FOR DECOLONIZATION TP SCH (22:18)
[2017-06-18] MEDS ORDERED: ALBUTEROL SO4 2.5/IPRATROPIUM 0.5 INH SOL 3 ML VIAL.NEB. NEB PRN (22:25)
[2017-06-18 22:41] LABS: GLUCOSE,RANDOM 306 mg/dL (74-106)
[2017-06-18 22:42] LABS: BLOOD UREA NITROGEN 162 mg/dL (7-18)
[2017-06-18] MEDS: MUPIROCIN 2% TOPICAL OINTMENT FOR DECOLONIZATION NS SCH (22:50)
[2017-06-18] MEDS ORDERED: AZTREONAM 2 GRAM SYRINGE 2 GM/10 ML DISP.SYRIN IVPUSH ONE (23:00)
[2017-06-18 23:02] LABS: INR 1.16 (0.82-1.09); PROTHROMBIN TIME (PATIENT) 13.1 SEC (9.98-11.88)
[2017-06-19 00:27] LABS: ANION GAP 12 (8-16); BLOOD UREA NITROGEN 86 mg/dL (7-18); CALCIUM 8.4 mg/dL (8.5-10.1); CHLORIDE 95 mmol/L (98-107); CO2 25 mmol/L (21-32); CREATININE 2.9 mg/dL (0.55-1.02); GLUCOSE,RANDOM 156 mg/dL (74-106); POTASSIUM 3.7 mmol/L (3.5-5.1); SODIUM 132 mmol/L (136-145)
[2017-06-19 00:38] LABS: URINE APPEARANCE CLEAR; URINE BILIRUBIN NEGATIVE (NEGATIVE); URINE BLOOD NEGATIVE (NEGATIVE); URINE COLOR YELLOW; URINE GLUCOSE (UA) NEGATIVE (NEGATIVE); URINE KETONE NEGATIVE (NEGATIVE); URINE LEUK ESTERASE NEGATIVE (NEGATIVE); URINE NITRITE NEGATIVE (NEGATIVE); URINE UROBILINOGEN NEGATIVE mg/dL (0.2-1.0)
[2017-06-19 00:44] LABS: URINE PROTEIN 1+ (NEGATIVE)
[2017-06-19 00:53] LABS: EPI CELLS RARE /HPF (FEW); GRANULAR CASTS 1 /lpf; URINE BACTERIA RARE /hpf (NONE SEEN); URINE HYALINE CAST 7 /lpf; URINE MUCUS RARE
[2017-06-19 01:14] LABS: ANION GAP 19 (8-16); CHLORIDE 101 mmol/L (98-107); SODIUM 129 mmol/L (136-145)
[2017-06-19 01:24] LABS: POTASSIUM 6.7 mmol/L (3.5-5.1)
[2017-06-19] MEDS ORDERED: PHENYLEPHRINE HCL 10 MG/1 ML SINGLE DOSE VIAL ONE ×6 (01:28→15:35)
[2017-06-19] MEDS: DEXTROSE 5%-WATER - 1,000 ML IV SCH (02:00)
[2017-06-19] MEDS ORDERED: HEMOQUE TEST 1 EACH EACH ONE (02:54)
[2017-06-19] MEDS: INSULIN SLIDING SCALE (NOVOLOG) 1 VIAL SQ SCH (06:13)
--- NOTE | 2017-06-19 08:01 | EKG ---
Test Reason : Blood Pressure : / mmHG Vent. Rate : 000 BPM Atrial Rate : 050 BPM P-R Int : 000 ms QRS Dur : 112 ms QT Int : 214 ms P-R-T Axes : 000 021 -04 degrees QTc Int : 000 ms ATRIAL FIBRILLATION LOW VOLTAGE QRS CANNOT RULE OUT INFERIOR INFARCT , AGE UNDETERMINED ABNORMAL ECG Confirmed by JACQUI GOMEZ, VENKAT ([id number]) on 06/19/2017 8:01:20 AM Referred By: Confirmed By:VENKAT OSMAN MD
[2017-06-19 09:38] LABS: HEMATOCRIT 32.3 % (32.4-45.2); HEMOGLOBIN 10.4 GM/dL (10.7-15.3); MCH 26.4 pg (25.7-33.7); MCHC 32.2 g/dl (32.0-36.0); MEAN CELL VOLUME 81.8 fl (80-96); MEAN PLT VOLUME 8.1 fl (7.5-11.1); PLATELET COUNT 444 K/MM3 (134-434); RBC 3.95 M/mm3 (3.60-5.2); RDW 14.1 % (11.6-15.6)
--- NOTE | 2017-06-19 09:41 | PN ---
Physical Exam: SUBJECTIVE: Patient seen and examined OBJECTIVE: Vital Signs Period Temp Pulse Resp BP Sys/Callahan Pulse Ox Last 24 Hr 97.3 F-100.7 F 72-91 14-20 75-113/40-100 100-100 GENERAL: The patient is awake, alert, and fully oriented, in no acute distress. HEAD: Normal with no signs of trauma. EYES: PERRL, extraocular movements intact, sclera anicteric, conjunctiva clear. No ptosis. ENT: Ears normal, nares patent, oropharynx clear without exudates, moist mucous membranes. NECK: Trachea midline, full range of motion, supple. LUNGS: Breath sounds equal, clear to auscultation bilaterally, no wheezes, no crackles, no accessory muscle use. HEART: Regular rate and rhythm, S1, S2 without murmur, rub or gallop. ABDOMEN: Soft, nontender, nondistended, normoactive bowel sounds, no guarding, no rebound, no hepatosplenomegaly, no masses. EXTREMITIES: 2+ pulses, warm, well-perfused, no edema. NEUROLOGICAL: Cranial nerves II through XII grossly intact. Normal speech, gait not observed. PSYCH: Normal mood, normal affect. SKIN: Warm, dry, normal turgor, no rashes or lesions noted Laboratory Results - last 24 hr 06/18/17 06/18/17 06/18/17 14:30 14:30 14:30 WBC 26.7 H D RBC 4.71 D Hgb 12.7 D Hct 40.0 D MCV 84.9 MCH 26.9 MCHC 31.6 L RDW 14.5 Plt Count 597 H D MPV 8.7 Neutrophils % No Result Required. Neutrophils % (Manual) 92.0 H* Lymphocytes % No Result Required. Lymphocytes % (Manual) 6.0 L D Monocytes % (Manual) 2 L Platelet Estimate Significant increase Platelet Comment Mod plt clumping ESR PT with INR INR PTT (Actin FS) Anticoagulation Therapy Puncture Site ABG pH ABG pCO2 at Pt Temp ABG pO2 at Pt Temp ABG HCO3 ABG O2 Sat (Measured) ABG O2 Content ABG Base Excess Kwesi Test O2 Delivery Device Oxygen Flow Rate Vent Mode Vent Rate Mechanical Rate Pressure Support Vent Sodium 121 L* Potassium 8.5 H* Chloride 95 L Carbon Dioxide 9 L Anion Gap 18 H BUN 134 H* Creatinine 5.6 H Creat Clearance w eGFR 7.91 Random Glucose 236 H Hemoglobin A1c % Lactic Acid Calcium 9.9 Phosphorus Magnesium Total Bilirubin 0.3 D AST 7 L ALT 29 Alkaline Phosphatase 170 H Troponin I C-Reactive Protein 8.0 H Total Protein 8.7 H Albumin 3.2 L Urine Color Urine Appearance Urine pH Ur Specific [place] Urine Protein Urine Glucose (UA) Urine Ketones Urine Blood Urine Nitrite Urine Bilirubin Urine Urobilinogen Ur Leukocyte Esterase Urine WBC (Auto) Urine RBC (Auto) Ur Epithelial Cells Urine Bacteria Hyaline Casts Granular Casts Urine Mucus Urine Osmolality 06/18/17 06/18/17 06/18/17 14:30 20:30 20:30 WBC RBC Hgb Hct MCV MCH MCHC RDW Plt Count MPV Neutrophils % Neutrophils % (Manual) Lymphocytes % Lymphocytes % (Manual) Monocytes % (Manual) Platelet Estimate Platelet Comment ESR 82 H PT with INR INR PTT (Actin FS) Anticoagulation Therapy Puncture Site ABG pH ABG pCO2 at Pt Temp ABG pO2 at Pt Temp ABG HCO3 ABG O2 Sat (Measured) ABG O2 Content ABG Base Excess Kwesi Test O2 Delivery Device Oxygen Flow Rate Vent Mode Vent Rate Mechanical Rate Pressure Support Vent Sodium Potassium Chloride Carbon Dioxide Anion Gap BUN Creatinine Creat Clearance w eGFR Random Glucose Hemoglobin A1c % Lactic Acid 2.1 H Calcium Phosphorus 8.3 H Magnesium 4.1 H Total Bilirubin AST ALT Alkaline Phosphatase Troponin I C-Reactive Protein Total Protein Albumin Urine Color Urine Appearance Urine pH Ur Specific [place] Urine Protein Urine Glucose (UA) Urine Ketones Urine Blood Urine Nitrite Urine Bilirubin Urine Urobilinogen Ur Leukocyte Esterase Urine WBC (Auto) Urine RBC (Auto) Ur Epithelial Cells Urine Bacteria Hyaline Casts Granular Casts Urine Mucus Urine Osmolality 06/18/17 06/18/17 06/18/17 20:30 20:30 20:30 WBC RBC Hgb Hct MCV MCH MCHC RDW Plt Count MPV Neutrophils % Neutrophils % (Manual) Lymphocytes % Lymphocytes % (Manual) Monocytes % (Manual) Platelet Estimate Platelet Comment ESR PT with INR INR PTT (Actin FS) 19.9 L D Anticoagulation Therapy Puncture Site ABG pH ABG pCO2 at Pt Temp ABG pO2 at Pt Temp ABG HCO3 ABG O2 Sat (Measured) ABG O2 Content ABG Base Excess Kwesi Test O2 Delivery Device Oxygen Flow Rate Vent Mode Vent Rate Mechanical Rate Pressure Support Vent Sodium 129 L Potassium 6.7 H* Chloride 101 Carbon Dioxide 9 L Anion Gap 19 H BUN 162 H* D Creatinine 5.4 H Creat Clearance w eGFR Random Glucose 306 H* Hemoglobin A1c % Lactic Acid Calcium 9.3 Phosphorus Magnesium Total Bilirubin AST ALT Alkaline Phosphatase Troponin I < 0.02 C-Reactive Protein Total Protein Albumin Urine Color Urine Appearance Urine pH Ur Specific [place] Urine Protein Urine Glucose (UA) Urine Ketones Urine Blood Urine Nitrite Urine Bilirubin Urine Urobilinogen Ur Leukocyte Esterase Urine WBC (Auto) Urine RBC (Auto) Ur Epithelial Cells Urine Bacteria Hyaline Casts Granular Casts Urine Mucus Urine Osmolality 06/18/17 06/18/17 06/18/17 20:30 21:25 23:40 WBC RBC Hgb Hct MCV MCH MCHC RDW Plt Count MPV Neutrophils % Neutrophils % (Manual) Lymphocytes % Lymphocytes % (Manual) Monocytes % (Manual) Platelet Estimate Platelet Comment ESR PT with INR 13.10 H INR 1.16 H PTT (Actin FS) Anticoagulation Therapy No Result Required. Puncture Site Right radial ABG pH 7.37 ABG pCO2 at Pt Temp 23.6 L ABG pO2 at Pt Temp 154.0 H* ABG HCO3 13.5 L* ABG O2 Sat (Measured) 99.9 H* ABG O2 Content 15.8 ABG Base Excess -10.0 L Kwesi Test Positive O2 Delivery Device Venti mask Oxygen Flow Rate 50% Vent Mode No Result Required. Vent Rate No Result Required. Mechanical Rate No Result Required. Pressure Support Vent No Result Required. Sodium 132 L Potassium 3.7 Chloride 95 L Carbon Dioxide 25 Anion Gap 12 BUN 86 H D Creatinine 2.9 H Creat Clearance w eGFR Random Glucose 156 H Hemoglobin A1c % Lactic Acid Calcium 8.4 L Phosphorus Magnesium Total Bilirubin AST ALT Alkaline Phosphatase Troponin I C-Reactive Protein Total Protein Albumin Urine Color Urine Appearance Urine pH Ur Specific [place] Urine Protein Urine Glucose (UA) Urine Ketones Urine Blood Urine Nitrite Urine Bilirubin Urine Urobilinogen Ur Leukocyte Esterase Urine WBC (Auto) Urine RBC (Auto) Ur Epithelial Cells Urine Bacteria Hyaline Casts Granular Casts Urine Mucus Urine Osmolality 06/18/17 06/18/17 06/19/17 23:45 23:45 06:35 WBC RBC Hgb Hct MCV MCH MCHC RDW Plt Count MPV Neutrophils % Neutrophils % (Manual) Lymphocytes % Lymphocytes % (Manual) Monocytes % (Manual) Platelet Estimate Platelet Comment ESR PT with INR INR PTT (Actin FS) Anticoagulation Therapy Puncture Site ABG pH ABG pCO2 at Pt Temp ABG pO2 at Pt Temp ABG HCO3 ABG O2 Sat (Measured) ABG O2 Content ABG Base Excess Kwesi Test O2 Delivery Device Oxygen Flow Rate Vent Mode Vent Rate Mechanical Rate Pressure Support Vent Sodium Potassium Chloride Carbon Dioxide Anion Gap BUN Creatinine Creat Clearance w eGFR Random Glucose Hemoglobin A1c % 10.6 H Lactic Acid Calcium Phosphorus Magnesium Total Bilirubin AST ALT Alkaline Phosphatase Troponin I C-Reactive Protein Total Protein Albumin Urine Color Yellow Urine Appearance Clear Urine pH 5.0 Ur Specific [place] 1.020 Urine Protein 1+ H Urine Glucose (UA) Negative Urine Ketones Negative Urine Blood Negative Urine Nitrite Negative Urine Bilirubin Negative Urine Urobilinogen Negative Ur Leukocyte Esterase Negative Urine WBC (Auto) 1 Urine RBC (Auto) <1 Ur Epithelial Cells Rare Urine Bacteria Rare Hyaline Casts 7 Granular Casts 1 Urine Mucus Rare Urine Osmolality 390 Active Medications Generic Name Dose Route Start Last Admin Trade Name Freq PRN Reason Stop Dose Admin Acetaminophen 1,000 mg 06/19/17 10:00 Ofirmev Injection - IVPB 06/19/17 10:01 ONCE ONE Albuterol/Ipratropium 1 amp 06/18/17 22:25 Duoneb - NEB Q4H PRN SHORTNESS OF BREATH Chlorhexidine Gluconate 1 applic 06/18/17 22:00 06/18/17 22:18 Hibiclens For Decolonization - TP 1 applic HS LANCE Administration Heparin Sodium (Porcine) 5,000 unit 06/18/17 18:42 Heparin - IVPUSH PRN PRN Heparin HEPARIN SOD,PORK IN 0.45% NACL 25,000 units in 500 mls @ 20 mls/hr 06/18/17 19 :00 06/19/17 01:16 Heparin-1/2ns 25,000 Units/500 IVPB Not Given TITR LANCE Protocol 1,000 UNITS/HR Phenylephrine HCl 20,000 mcg/ 250 mls @ 37.5 mls/hr 06/18/17 21:45 06/18/17 21:30 Sodium Chloride IVPB 50 mcg/min ASDIR LANCE 37.5 mls/hr Protocol Administration 50 MCG/MIN Dextrose 1,000 mls @ 42 mls/hr 06/19/17 02:00 06/19/17 02:00 D5w - IV 42 mls/hr ASDIR LANCE Administration Insulin Aspart 1 vial 06/18/17 16:30 06/19/17 06:13 Novolog Vial Sliding Scale - SQ 4 units ACHS LANCE Administration Protocol Mupirocin 1 applic 06/18/17 22:00 06/18/17 22:50 Bactroban Ointment (For Decolonization) - NS 06/23/17 21:59 1 applic BID LANCE Administration Pantoprazole Sodium 40 mg 06/18/17 22:00 06/18/17 22:51 Protonix - PO Not Given BID [facility] ASSESSMENT/PLAN:
[2017-06-19 09:47] LABS: WHITE BLOOD COUNT 30.2 K/mm3 (4.0-10.0)
[2017-06-19] MEDS: MUPIROCIN 2% TOPICAL OINTMENT FOR DECOLONIZATION NS SCH (09:48)
--- NOTE | 2017-06-19 09:51 | PN ---
Progress Note, Physician - Current Medication List Current Medications: Active Medications Acetaminophen (Ofirmev Injection -) 1,000 mg IVPB ONCE ONE Stop: 06/19/17 10:01 Last Admin: 06/19/17 09:46 Dose: 1,000 mg Albuterol/Ipratropium (Duoneb -) 1 amp NEB Q4H PRN PRN Reason: SHORTNESS OF BREATH Chlorhexidine Gluconate (Hibiclens For Decolonization -) 1 applic TP HS LANCE Last Admin: 06/18/17 22:18 Dose: 1 applic Phenylephrine HCl 20,000 mcg/ (Sodium Chloride) 250 mls @ 37.5 mls/hr IVPB ASDIR LANCE; 50 MCG/MIN PRN Reason: Protocol Last Admin: 06/18/17 21:30 Dose: 50 mcg/min, 37.5 mls/hr Dextrose (D5w -) 1,000 mls @ 42 mls/hr IV ASDIR LANCE Last Admin: 06/19/17 02:00 Dose: 42 mls/hr Insulin Aspart (Novolog Vial Sliding Scale -) 1 vial SQ ACHS LANCE PRN Reason: Protocol Last Admin: 06/19/17 06:13 Dose: 4 units Mupirocin (Bactroban Ointment (For Decolonization) -) 1 applic NS BID LANCE Stop: 06/23/17 21:59 Last Admin: 06/19/17 09:48 Dose: 1 applic - Objective Vital Signs: Vital Signs Temperature 100.7 F H 06/19/17 05:55 Pulse Rate 72 06/19/17 08:00 Respiratory Rate 20 06/19/17 08:00 Blood Pressure 93/49 06/19/17 08:00 O2 Sat by Pulse Oximetry (%) 100 06/19/17 06:28 Labs: CBC, BMP 06/19/17 09:20 INR, PTT INR 1.16 (0.82-1.09) H 06/18/17 20:30 Problem List - Problems (1) Sepsis Assessment/Plan: Severe Sepsis secondary to bilateral lower extremity wounds Given Aztronem 2gram in ED, Vanco 1 gram in ED Antibiotics renally dosed as per ID Lactic acid 2.1 TODAYS PENDING Renal and ID following Code(s): A41.9 - SEPSIS, UNSPECIFIED ORGANISM Qualifiers: Sepsis type: sepsis due to unspecified organism Qualified Code(s): A41.9 - Sepsis, unspecified organism (2) Altered mental status Assessment/Plan: Metabolic encephalopaty secondary to sepsis and electrolyte imbalance CT scan Code(s): R41.82 - ALTERED MENTAL STATUS, UNSPECIFIED (3) Ulcers of both lower extremities Code(s): L97.919 - NON-PRS CHRONIC ULC UNSP PRT OF R LOW LEG W UNSP SEVERITY; L97.929 - NON-PRS CHRONIC ULC UNSP PRT OF L LOW LEG W UNSP SEVERITY Qualifiers: Non-pressure ulcer stage: unspecified non-pressure ulcer stage Qualified Code(s): L97.919 - Non-pressure chronic ulcer of unspecified part of right lower leg with unspecified severity; L97.929 - Non-pressure chronic ulcer of unspecified part of left lower leg with unspecified severity; L97.929 - Non- pressure chronic ulcer of unspecified part of left lower leg with unspecified severity; L97.929 - Non-pressure chronic ulcer of unspecified part of left lower leg with unspecified severity; L97.929 - Non-pressure chronic ulcer of unspecified part of left lower leg with unspecified severity (4) Afib Code(s): I48.91 - UNSPECIFIED ATRIAL FIBRILLATION (5) DM2 (diabetes mellitus, type 2) Assessment/Plan: [facility] Code(s): E11.9 - TYPE 2 DIABETES MELLITUS WITHOUT COMPLICATIONS Qualifiers: Diabetes mellitus complication detail: with other circulatory complications (6) Renal failure (ARF), acute on chronic Assessment/Plan: Monitor mental status, correct electrolytes ON ADMISION na 121, K. 8.5, bun 134, creat 5.6, gluc 236: given insulin, d50, kayexelate, saline, and calcium gluconate Monitor vitals, labs in the setting of sepsis Monitor electrolytes after dialysis CMP IMPROVED Sodium 132 mmol/L (136-145) L 06/18/17 23:40 Potassium 3.7 mmol/L (3.5-5.1) 06/18/17 23:40 Chloride 95 mmol/L (98-107) L 06/18/17 23:40 Carbon Dioxide 25 mmol/L (21-32) 06/18/17 23:40 Anion Gap 12 (8-16) 06/18/17 23:40 BUN 86 mg/dL (7-18) H D 06/18/17 23:40 Creatinine 2.9 mg/dL (0.55-1.02) H 06/18/17 23:40 Creat Clearance w eGFR 7.91 (>60) 06/18/17 14:30 Random Glucose 156 mg/dL (74-106) H 06/18/17 23:40 Hemoglobin A1c % 10.6 % (4.8-6.0) H 06/19/17 06:35 Lactic Acid 2.1 mmol/L (0.0-2.0) H 06/18/17 20:30 Calcium 8.4 mg/dL (8.5-10.1) L 06/18/17 23:40 Phosphorus 8.3 mg/dL (2.5-4.9) H 06/18/17 20:30 Magnesium 4.1 mg/dL (1.8-2.4) H 06/18/17 20:30 Total Bilirubin 0.3 mg/dL (0.2-1.0) D 06/18/17 14:30 AST 7 U/L (15-37) L 06/18/17 14:30 ALT 29 U/L (12-78) 06/18/17 14:30 Alkaline Phosphatase 170 U/L (45-117) H 06/18/17 14:30 Troponin I < 0.02 ng/ml (0.00-0.05) 06/18/17 20:30 C-Reactive Protein 8.0 MG/DL (0.00-0.3) H 06/18/17 14:30 Total Protein 8.7 g/dl (6.4-8.2) H 06/18/17 14:30 Albumin 3.2 g/dl (3.4-5.0) L 06/18/17 14:30 Code(s): N17.9 - ACUTE KIDNEY FAILURE, UNSPECIFIED; N18.9 - CHRONIC KIDNEY DISEASE, UNSPECIFIED
[2017-06-19] MEDS ORDERED: ACETAMINOPHEN 1000 MG/100 ML VIAL (NON FORMULARY) IVPB ONE (10:00)
[2017-06-19] MEDS ORDERED: HEPARIN SOD,PORK IN 0.45% NACL 25,000 UNITS/500 ML INFUS.BAG IVPB SCH (10:00)
[2017-06-19] MEDS ORDERED: GABAPENTIN 300 MG CAPSULE (FP) PO SCH (10:00)
[2017-06-19] MEDS ORDERED: HEPARIN NA (PORCINE) 5,000 UNITS/ML 1ML VIAL IVPUSH PRN ×2 (10:00)
--- NOTE | 2017-06-19 10:24 | EKG ---
Test Reason : Blood Pressure : / mmHG Vent. Rate : 085 BPM Atrial Rate : 085 BPM P-R Int : 196 ms QRS Dur : 070 ms QT Int : 342 ms P-R-T Axes : 023 016 029 degrees QTc Int : 406 ms POOR DATA QUALITY, INTERPRETATION MAY BE ADVERSELY AFFECTED NORMAL SINUS RHYTHM LOW VOLTAGE QRS BORDERLINE ECG WHEN COMPARED WITH ECG OF 18-JUN-2017 13:54, SINUS RHYTHM HAS REPLACED ATRIAL FIBRILLATION [place] [address] B[place] QUESTIONABLE CHANGE IN QRS DURATION MINIMAL CRITERIA FOR INFERIOR INFARCT ARE NO LONGER PRESENT Confirmed by VENKAT OSMAN MD ([id number]) on 06/19/2017 10:24:10 AM Referred By: Confirmed By:VENKAT OSMAN MD
[2017-06-19 10:28] LABS: ALBUMIN 2.3 g/dl (3.4-5.0); ALK PHOS 130 U/L (45-117); ANION GAP 17 (8-16); BILIRUBIN,TOTAL 0.3 mg/dL (0.2-1.0); BLOOD UREA NITROGEN 103 mg/dL (7-18); CALCIUM 8.1 mg/dL (8.5-10.1); CHLORIDE 95 mmol/L (98-107); CO2 18 mmol/L (21-32); CREATININE 3.3 mg/dL (0.55-1.02); GLUCOSE,RANDOM 205 mg/dL (74-106); MAGNESIUM 2.7 mg/dL (1.8-2.4); PHOSPHOROUS 5.6 mg/dL (2.5-4.9); POTASSIUM 4.9 mmol/L (3.5-5.1); SGOT/AST 9 U/L (15-37); SGPT/ALT 19 U/L (12-78); SODIUM 130 mmol/L (136-145); TOT PROT 6.4 g/dl (6.4-8.2)
[2017-06-19] MEDS ORDERED: morphine CARPU-JECT 4 MG/1 ML DISP.SYRIN IVPUSH ONE (10:33)
--- NOTE | 2017-06-19 11:44 | EKG ---
Test Reason : Blood Pressure : / mmHG Vent. Rate : 085 BPM Atrial Rate : 085 BPM P-R Int : 192 ms QRS Dur : 074 ms QT Int : 356 ms P-R-T Axes : 021 018 030 degrees QTc Int : 423 ms NORMAL SINUS RHYTHM LOW VOLTAGE QRS BORDERLINE ECG WHEN COMPARED WITH ECG OF 19-JUN-2017 00:11, NO SIGNIFICANT CHANGE WAS FOUND Confirmed by VENKAT OSMAN MD ([id number]) on 06/19/2017 11:44:03 AM Referred By: Confirmed By:VENKAT OSMAN MD
[2017-06-19 12:10] LABS: ARTERIAL BLD GAS O2 SATURATION 99.5 % (90-98.9); ARTERIAL BLOOD GAS BASE EXCESS -4.8 meq/l (-2-2); ARTERIAL BLOOD GAS PCO2 27.8 mmHg (35-45); ARTERIAL BLOOD GAS pH 7.44 (7.35-7.45)
[2017-06-19 12:17] LABS: ALLENS TEST POSITIVE
--- NOTE | 2017-06-19 12:23 | PN ---
Progress Note, Physician History of Present Illness: more aroused today, c/o chills. says she was unable to follow-up with wound clinic due to transportation issues. c/o of b/l leg pain, worse on the left leg radiates to her thigh. denies chest pain, headache, changes in vision, fever, abdominal pain, palpitations. - Current Medication List Current Medications: Active Medications Albuterol/Ipratropium (Duoneb -) 1 amp NEB Q4H PRN PRN Reason: SHORTNESS OF BREATH Chlorhexidine Gluconate (Hibiclens For Decolonization -) 1 applic TP HS LANCE Last Admin: 06/18/17 22:18 Dose: 1 applic Heparin Sodium (Porcine) (Heparin -) 1,000 unit IVPUSH PRN PRN PRN Reason: Heparin Heparin Sodium (Porcine) (Heparin -) 5,000 unit IVPUSH PRN PRN PRN Reason: Heparin Phenylephrine HCl 20,000 mcg/ (Sodium Chloride) 250 mls @ 37.5 mls/hr IVPB ASDIR LANCE; 50 MCG/MIN PRN Reason: Protocol Last Admin: 06/18/17 21:30 Dose: 50 mcg/min, 37.5 mls/hr Dextrose (D5w -) 1,000 mls @ 42 mls/hr IV ASDIR LANCE Last Admin: 06/19/17 02:00 Dose: 42 mls/hr HEPARIN SOD,PORK IN 0.45% NACL (Heparin-1/2ns 25,000 Units/500) 25,000 units in 500 mls @ 20 mls/hr IVPB TITR LANCE; 1,000 UNITS/HR PRN Reason: Protocol Insulin Aspart (Novolog Vial Sliding Scale -) 1 vial SQ ACHS LANCE PRN Reason: Protocol Last Admin: 06/19/17 06:13 Dose: 4 units Mupirocin (Bactroban Ointment (For Decolonization) -) 1 applic NS BID LANCE Stop: 06/23/17 21:59 Last Admin: 06/19/17 09:48 Dose: 1 applic - Objective Vital Signs: Vital Signs Temperature 99.8 F H 06/19/17 09:51 Pulse Rate 76 06/19/17 11:54 Respiratory Rate 22 06/19/17 11:54 Blood Pressure 98/46 06/19/17 11:54 O2 Sat by Pulse Oximetry (%) 95 01/24/18 11:31 Constitutional: Yes: Calm Eyes: Yes: Conjunctiva Clear, EOM Intact HENT: Yes: Atraumatic, Normocephalic Neck: Yes: Supple, Trachea Midline Cardiovascular: Yes: Regular Rate and Rhythm, Other (distant heart sounds) Respiratory: Yes: On BiPap Gastrointestinal: Yes: Soft, Other (obese) Edema: Yes Peripheral Pulses WNL: Yes Integumentary: Yes: Erythema (b/l lower legs), Rash (b/l lower legs with multiple malodorous purulent ulcers), Venous Stasis Changes Neurological: Yes: Other (oriented to person, easily arousable, lethargic) Labs: CBC, BMP 06/19/17 09:20 06/19/17 06:35 INR, PTT INR 1.16 (0.82-1.09) H 06/18/17 20:30 Assessment/Plan 52 yr old woman with uncontrolled DM, mutiple mucopurelant lower extremity ulcers, dm neuropathy, NOVA, afib on eliquis presents with lethargy, metabolic derangement requiring HD, septic shock requiring pressors likely secondary to cellulitis. #ID Sepsis secondary to cellulitis consult Dr. De Leon - Merrem IV daily - received one dose of aztreonam and vanc in ED - vascular to debride in OR tomorrow, keep NPO tonight, hold heparin at 6AM #CV Septic Shock, with lactic acidosis - phenylephrine titr to maintain MAP >65 - 1/2 NS bolus if needed, avoid LR/NS given hyponatremia - trend lactic acid - hold anti-htn home meds: cardizemm 30mg po QID Afib - heparin drip, monitor Ptt #Pulm - maintain on Bipap prn for increased work of breathing, maintain SpO2 >90% #Renal consult: dr. ramirez Acute renal failure requiring dialysis, hyponatremia/hyperkalemia - hyponatremia improved post-dialysis 06/18, repeat dialysis today - faith for UOP monitoring #Endo consult Dr. Tejeda - uncontrolled DM with anion gap - insulin drip @ .3ccc/kg/hr, BGM q3hr - D5 @42cc/hr Hold home meds: levemir 15units sq HS, NISS #Neuro CT head to r/o hemorrhage as cause of #PPx - on heparin drip for afib, hold prior to OR debridement #Diet: NPO while on bipap, NPO prior to OR #Dispo Continue ICU level of care
[2017-06-19 12:27] LABS: ACANTHOCYTES 0; ANISOCYTOSIS 0; HELMET CELLS 0; HOWELL-JOLLY BODIES 0; MACROCYTOSIS 0; OVALOCYTE 0; PLATELET ESTIMATE INCREASED; ROULEAU 0; SICKELED CELLS 0; TARGET CELLS 0; TEAR DROP CELLS 0; TOXIC GRANULATION 0
--- NOTE | 2017-06-19 12:58 | PN ---
Progress Note, Physician History of Present Illness: Pt seen and examined at bedside. She tolerated HD last night. She remains hypotensive and is on pressors. She is awake and says she feels better than she did yesterday in the ER. - Current Medication List Current Medications: Active Medications Albuterol/Ipratropium (Duoneb -) 1 amp NEB Q4H PRN PRN Reason: SHORTNESS OF BREATH Chlorhexidine Gluconate (Hibiclens For Decolonization -) 1 applic TP HS LANCE Last Admin: 06/18/17 22:18 Dose: 1 applic Heparin Sodium (Porcine) (Heparin -) 1,000 unit IVPUSH PRN PRN PRN Reason: Heparin Heparin Sodium (Porcine) (Heparin -) 5,000 unit IVPUSH PRN PRN PRN Reason: Heparin Phenylephrine HCl 20,000 mcg/ (Sodium Chloride) 250 mls @ 37.5 mls/hr IVPB ASDIR LANCE; 50 MCG/MIN PRN Reason: Protocol Last Admin: 06/18/17 21:30 Dose: 50 mcg/min, 37.5 mls/hr Dextrose (D5w -) 1,000 mls @ 42 mls/hr IV ASDIR LANCE Last Admin: 06/19/17 02:00 Dose: 42 mls/hr HEPARIN SOD,PORK IN 0.45% NACL (Heparin-1/2ns 25,000 Units/500) 25,000 units in 500 mls @ 20 mls/hr IVPB TITR LANCE; 1,000 UNITS/HR PRN Reason: Protocol Insulin Aspart (Novolog Vial Sliding Scale -) 1 vial SQ ACHS LANCE PRN Reason: Protocol Last Admin: 06/19/17 06:13 Dose: 4 units Mupirocin (Bactroban Ointment (For Decolonization) -) 1 applic NS BID LANCE Stop: 06/23/17 21:59 Last Admin: 06/19/17 09:48 Dose: 1 applic - Objective Vital Signs: Vital Signs Temperature 99.8 F H 06/19/17 09:51 Pulse Rate 76 06/19/17 11:54 Respiratory Rate 22 06/19/17 11:54 Blood Pressure 98/46 06/19/17 11:54 O2 Sat by Pulse Oximetry (%) 95 06/19/17 11:31 Constitutional: Yes: Mild Distress Cardiovascular: Yes: S1, S2 Respiratory: Yes: Diminished, On Venti-Mask Gastrointestinal: Yes: Soft, Abdomen, Obese Genitourinary: Yes: Johnson Present Musculoskeletal: Yes: Muscle Weakness Edema: Yes (pt has bilateral ulcers) Edema: LLE: 1+, RLE: 1+ Integumentary: Yes: Erythema Wound/Incision: Yes: Open to air Neurological: Yes: Other (awake) Labs: CBC, BMP 06/19/17 09:20 06/19/17 06:35 INR, PTT INR 1.16 (0.82-1.09) H 06/18/17 20:30 - ....Imaging Chest X-ray: Report Reviewed Ultrasound: Report Reviewed Problem List - Problems (1) Hyperkalemia Code(s): E87.5 - HYPERKALEMIA (2) Ulcers of both lower extremities Code(s): L97.919 - NON-PRS CHRONIC ULC UNSP PRT OF R LOW LEG W UNSP SEVERITY; L97.929 - NON-PRS CHRONIC ULC UNSP PRT OF L LOW LEG W UNSP SEVERITY Qualifiers: Non-pressure ulcer stage: unspecified non-pressure ulcer stage Qualified Code(s): L97.919 - Non-pressure chronic ulcer of unspecified part of right lower leg with unspecified severity; L97.929 - Non-pressure chronic ulcer of unspecified part of left lower leg with unspecified severity; L97.929 - Non- pressure chronic ulcer of unspecified part of left lower leg with unspecified severity; L97.929 - Non-pressure chronic ulcer of unspecified part of left lower leg with unspecified severity; L97.929 - Non-pressure chronic ulcer of unspecified part of left lower leg with unspecified severity (3) Unable to ambulate Code(s): R26.2 - DIFFICULTY IN WALKING, NOT ELSEWHERE CLASSIFIED (4) NOVA (acute kidney injury) Code(s): N17.9 - ACUTE KIDNEY FAILURE, UNSPECIFIED (5) Acute renal failure Code(s): N17.9 - ACUTE KIDNEY FAILURE, UNSPECIFIED (6) Afib Code(s): I48.91 - UNSPECIFIED ATRIAL FIBRILLATION Assessment/Plan Current Medications Generic Name Dose Route Start Last Admin Trade Name Freq PRN Reason Stop Dose Admin Albuterol/Ipratropium 1 amp 06/18/17 22:25 Duoneb - NEB Q4H PRN SHORTNESS OF BREATH Chlorhexidine Gluconate 1 applic 06/18/17 22:00 06/18/17 22:18 Hibiclens For Decolonization - TP 1 applic HS LANCE Administration Heparin Sodium (Porcine) 1,000 unit 06/19/17 10:00 Heparin - IVPUSH PRN PRN Heparin Heparin Sodium (Porcine) 5,000 unit 06/19/17 10:00 Heparin - IVPUSH PRN PRN Heparin Phenylephrine HCl 20,000 mcg/ 250 mls @ 37.5 mls/hr 06/18/17 21:45 06/18/17 21:30 Sodium Chloride IVPB 50 mcg/min ASDIR LANCE 37.5 mls/hr Protocol Administration 50 MCG/MIN Dextrose 1,000 mls @ 42 mls/hr 06/19/17 02:00 06/19/17 02:00 D5w - IV 42 mls/hr ASDIR LANCE Administration HEPARIN SOD,PORK IN 0.45% NACL 25,000 units in 500 mls @ 20 mls/hr 06/19/17 10 :00 Heparin-1/2ns 25,000 Units/500 IVPB TITR LANCE Protocol 1,000 UNITS/HR Insulin Aspart 1 vial 06/18/17 16:30 06/19/17 06:13 Novolog Vial Sliding Scale - SQ 4 units ACHS LANCE Administration Protocol Mupirocin 1 applic 06/18/17 22:00 06/19/17 09:48 Bactroban Ointment (For Decolonization) - NS 06/23/17 21:59 1 applic BID LANCE Administration Impression 1. NOVA 2. hyperkalemia with ECG changes 3. obesity 4. DM 5. a-fib 6. HTN 7. chronic lower extremity ulcers 8. gastritis 9. sepsis 10. hyponatremia Plan - potassium is improved - will dialyze again today - cont with d5w as to decrease the rate of sodium correction - cont pressors to a map of 65 - follow cultures - cont wound care - vascular surgery/wound care follow up - cont abx - keep in ICU - will dialyze again today - monitor urine output - will not take fluids off, pt need volume, use hypotonic fluids - monitor sodium closely - discussed with ICU team Dr Epstein
--- NOTE | 2017-06-19 14:12 | CON.CARD ---
Consult Consult Specialty:: cardiology Referred by:: Mely Reason for Consultation:: Shortness of breath and leg edema - History of Present Illness Chief Complaint: Lower extremity edema with infected ulcers. Acute renal failure History of Present Illness: The patient is a 52-year-old morbidly obese female, noncompliant to medications , history of diabetes, hypertension, hyperlipidemia, atrial fibrillation on Eliquis, chronic kidney disease, chronic venous stasis and cellulitis of both lower extremities, now admitted with infected lower extremity ulcers, shortness of breath and fluid overload. The patient is on a CPAP. She looks fairly comfortable. Began dialysis. - History Source History Provided By: Family Member, Medical Record Limitations to Obtaining History: Other (shortness of breath) - Past Medical History Cardio/Vascular: Yes: AFIB Pulmonary: Yes: Asthma Gastrointestinal: Yes: Other (gallstones) Renal/: Yes: Renal Inusuff Infectious Disease: Yes: Other (LE cellulitis) Psych: Yes: Bipolar Endocrine: Yes: Diabetes Mellitus Dermatology: Yes: Cellulitis (b/l LE with ulcerations) - Alcohol/Substance Use Hx Alcohol Use: No History of Substance Use: reports: Prescription (narcotics) - Smoking History Smoking history: Never smoked Have you smoked in the past 12 months: No Aproximately how many cigarettes per day: 0 Home Medications - Allergies Allergies/Adverse Reactions: Allergies Allergy/AdvReac Type Severity Reaction Status Date / Time nut - unspecified Allergy Verified 06/18/17 13:56 Penicillins Allergy Verified 06/18/17 13:56 - Home Medications Home Medications: Ambulatory Orders Insulin Sliding Scale [Novolog Vial Sliding Scale -] See Protocol SQ ACHS #7 pen 09/19/15 Albuterol Sulfate Inhaler - [Ventolin HFA Inhaler -] 1 - 2 inh PO Q4H #1 inhaler 10/09/15 Insulin Detemir [Levemir Flextouch] 5 unit SQ HS #0 10/09/15 Oxycodone HCl [Roxicodone -] 5 mg PO Q6H PRN #10 tablet MDD 4 10/09/15 Pantoprazole Sodium [Protonix -] 40 mg PO BID #60 tablet.ec 10/09/15 Clindamycin [Cleocin -] 300 mg PO BID 10/20/15 Gabapentin 0 mg PO DAILY 02/09/17 Multivitamin [Poly-Vitamin] 1 each PO DAILY 02/09/17 Acetaminophen [Tylenol .Regular Strength -] 650 mg PO Q6H PRN #0 tablet Apixaban [Eliquis -] 5 mg PO BID tablet 02/20/17 Bacitracin - [Bacitracin Topical Ointment -] 1 applic TP BID tube 02/20/17 Budesonide/Formeterol Fumarate [SYMBICORT 80/4.5mcg -] 2 puff IH BID inhaler Diltiazem [Cardizem -] 30 mg PO QID tablet 02/20/17 Heparin - 5,000 unit IVPUSH PRN PRN #0 vial 02/20/17 Insulin (Levemir) [Levemir Vial] 15 units SQ HS ml 02/20/17 Insulin Sliding Scale [Novolog Vial Sliding Scale -] 1 vial SQ ACHS units 02/20 Nystatin Powder [Nystop Powder -] 1 applic TP DAILY applic 02/20/17 Picc Line Flush [Picc Line Flush -] 8 ml IVPUSH PRN PRN #0 ml 02/20/17 Silver Sulfadiazine 1% Top Cr [Silvadene -] 1 applic TP DAILY jar 02/20/17 Vancomycin 1,250 mg IVPB DAILY@1400 10 Days vial 02/20/17 Family Disease History - Family Disease History Family Disease History: Other: Brother (stomach cancer), Sister (breast cancer) Review of Systems - Review of Systems Constitutional: reports: Lethargy, Malaise, Weakness Eyes: reports: No Symptoms HENT: reports: No Symptoms Neck: reports: No Symptoms Cardiovascular: reports: Edema, Shortness of Breath Respiratory: reports: SOB Gastrointestinal: reports: No Symptoms Genitourinary: reports: No Symptoms Breasts: reports: No Symptoms Reported Musculoskeletal: reports: No Symptoms Integumentary: reports: No Symptoms Neurological: reports: No Symptoms Endocrine: reports: No Symptoms Hematology/Lymphatic: reports: No Symptoms Psychiatric: reports: No Symptoms Vital Signs: Vital Signs Temperature 99.8 F H 06/19/17 09:51 Pulse Rate 76 06/19/17 11:54 Respiratory Rate 22 06/19/17 11:54 Blood Pressure 98/46 06/19/17 11:54 O2 Sat by Pulse Oximetry (%) 95 06/19/17 11:31 Constitutional: Yes: No Distress, Calm, Obese Eyes: Yes: WNL, Conjunctiva Clear HENT: Yes: WNL, Atraumatic, Normocephalic Neck: Yes: WNL, Supple, Trachea Midline Respiratory: Yes: On BiPap, Rhonchi Gastrointestinal: Yes: WNL, Normal Bowel Sounds, Soft Cardiovascular: Yes: WNL, Regular Rate and Rhythm JVD: No Carotid Bruit: No PMI: Non-Displaced Heart Sounds: Yes: S1, S2 Murmur: Yes: Systolic Murmur, Grade 2 Musculoskeletal: Yes: Muscle Weakness Extremities: Yes: Erythema, Other (Infected wounds) Edema: Yes Edema: LLE: 2+, RLE: 2+ Peripheral Pulses WNL: No Peripheral Pulses: 1+ Left Carotid, 1+ Right Carotid, 1+ Left Femoral, 1+ Right Femoral, 1+ Left Popliteal, 1+ Right Popliteal, 1+ Left Doralis Pedis, 1+ Right Dorsalis Pedis Integumentary: Yes: WNL Neurological: Yes: WNL, Alert, Oriented Psychiatric: Yes: WNL, Alert, Oriented - Other Data Labs, Other Data: CBC, BMP 06/19/17 09:20 06/19/17 06:35 INR, PTT INR 1.16 (0.82-1.09) H 06/18/17 20:30 Troponin, BNP 06/18/17 06/19/17 20:30 10:20 Troponin I < 0.02 < 0.02 Troponin, BNP 06/18/17 06/19/17 20:30 10:20 Troponin I < 0.02 < 0.02 Assessment/Plan 52-year-old morbidly obese female presenting with recurrent lower extremity edema with infected wounds. Massively fluid overloaded. Began dialysis. The patient improved clinically after the first dialysis session. There is no evidence of ischemia nor acute coronary syndrome. No chest pains. The patient is in sinus rhythm. Continue CPAP as currently. Continue fluid removal with dialysis. Continue anticoagulation for paroxysmal atrial fibrillation. There is no need for further cardiac workup at this point. Please do not hesitate to call us PRN. The patient is stable from the cardiac standpoint.
[2017-06-19] MEDS ORDERED: INSULIN REGULAR 100 UNITS in SODIUM CHLORIDE 99 ML IVPB SCH ×3 (14:30→14:50)
--- NOTE | 2017-06-19 15:01 | PN ---
Teaching Attending Note Name of Resident: Erlinda Dhaliwal ATTENDING PHYSICIAN STATEMENT I saw and evaluated the patient. I reviewed the resident's note and discussed the case with the resident. I agree with the resident's findings and plan as documented. SUBJECTIVE: Pt seen and examined in the ICU. Remains on BiPAP, lethargic at times but easily arousable. On phenylephrine gtt. OBJECTIVE: Last Vital Signs Temp Pulse Resp BP Pulse Ox 99.6 F 78 22 140/57 95 06/19/17 14:34 06/19/17 14:34 06/19/17 14:34 06/19/17 14:34 06/19/17 11:31 Intake & Output 06/16/17 06/17/17 06/18/17 06/19/17 23:59 23:59 23:59 23:59 Intake Total 1544 Output Total 50 200 Balance -50 1344 Weight 104.326 kg 54.068 kg Gen: mildly tachypneic on BiPAP Heart: RRR Lung: decreased breath sounds at the bases Abd: soft, nontender Ext: + edema, chronic changes, multiple ulcers LLE lateral purulent, RLE medial purulent CBC, BMP 06/19/17 09:20 06/19/17 06:35 Active Medications Albuterol/Ipratropium (Duoneb -) 1 amp NEB Q4H PRN PRN Reason: SHORTNESS OF BREATH Chlorhexidine Gluconate (Hibiclens For Decolonization -) 1 applic TP HS LANCE Last Admin: 06/18/17 22:18 Dose: 1 applic Heparin Sodium (Porcine) (Heparin -) 1,000 unit IVPUSH PRN PRN PRN Reason: Heparin Heparin Sodium (Porcine) (Heparin -) 5,000 unit IVPUSH PRN PRN PRN Reason: Heparin Phenylephrine HCl 20,000 mcg/ (Sodium Chloride) 250 mls @ 37.5 mls/hr IVPB ASDIR LANCE; 50 MCG/MIN PRN Reason: Protocol Last Admin: 06/18/17 21:30 Dose: 50 mcg/min, 37.5 mls/hr Dextrose (D5w -) 1,000 mls @ 42 mls/hr IV ASDIR LANCE Last Admin: 06/19/17 02:00 Dose: 42 mls/hr HEPARIN SOD,PORK IN 0.45% NACL (Heparin-1/2ns 25,000 Units/500) 25,000 units in 500 mls @ 20 mls/hr IVPB TITR LANCE; 1,000 UNITS/HR PRN Reason: Protocol Insulin Human Regular 100 (units/ Sodium Chloride) 100 mls @ 5.4 mls/hr IVPB TITR LANCE; 0.1 UNITS/KG/HR PRN Reason: Protocol Mupirocin (Bactroban Ointment (For Decolonization) -) 1 applic NS BID LANCE Stop: 06/23/17 21:59 Last Admin: 06/19/17 09:48 Dose: 1 applic ASSESSMENT AND PLAN: Cellulitis/r/o Leg Abscesses Septic Shock Acute on Chronic Renal Failure Lactic Acidosis Atrial Fibrillation Uncontrolled DM Hyponatremia - IV antibiotics - f/u cultures, send wound cultures - surgery evaluation for debridement - O2 to keep SpO2 >90% - BiPAP as needed to assist in work of breathing - IVF - monitor urine output, creatinine - titrate pressors to maintain MAP >65 - CT head to r/o bleed - aspiration precautions - NPO - DVT prophylaxis - continue ICU monitoring critical care time spent in reviewing chart, evaluating patient and formulating plan 35 min
[2017-06-19] MEDS ORDERED: ERTAPENEM SODIUM 0.5 GM in SODIUM CHLORIDE 50 ML IVPB ONE (15:37)
--- NOTE | 2017-06-19 15:40 | CON.ID ---
Consult Consult Specialty:: infectious diseases Reason for Consultation:: sepsis infected wounds - History of Present Illness Chief Complaint: ams not feeling well History of Present Illness: Pt is a 52 year old female with pmhx of CKD, obesity, DM, a-fib, chronic lower extremity ulcers, cellulitis, and gastritis who presents with weakness and fatigue. This patient is well known to me and had been treated previously for sever bilateral infected non healing ulcers patient has not been in wound care for some time and now comes in with sepsis and renal failure and plan is to dialyse her She denies fevers or chills. She is accompanies by her brother. She was found to have elevated potassium and was found to be in renal failure. She denies shortness of breath. She denies palpitations. - History Source History Provided By: Patient, Medical Record Limitations to Obtaining History: Poor Historian - Past Medical History Cardio/Vascular: Yes: AFIB Pulmonary: Yes: Asthma Gastrointestinal: Yes: Other (gallstones) Renal/: Yes: Renal Inusuff Infectious Disease: Yes: Other (LE cellulitis) Psych: Yes: Bipolar Endocrine: Yes: Diabetes Mellitus Dermatology: Yes: Cellulitis (b/l LE with ulcerations) - Alcohol/Substance Use Hx Alcohol Use: No History of Substance Use: reports: Prescription (narcotics) - Smoking History Smoking history: Never smoked Have you smoked in the past 12 months: No Aproximately how many cigarettes per day: 0 Home Medications - Allergies Allergies/Adverse Reactions: Allergies Allergy/AdvReac Type Severity Reaction Status Date / Time nut - unspecified Allergy Verified 06/18/17 13:56 Penicillins Allergy Verified 06/18/17 13:56 - Home Medications Home Medications: Ambulatory Orders Insulin Sliding Scale [Novolog Vial Sliding Scale -] See Protocol SQ ACHS #7 pen 09/19/15 Albuterol Sulfate Inhaler - [Ventolin HFA Inhaler -] 1 - 2 inh PO Q4H #1 inhaler 10/09/15 Insulin Detemir [Levemir Flextouch] 5 unit SQ HS #0 10/09/15 Oxycodone HCl [Roxicodone -] 5 mg PO Q6H PRN #10 tablet MDD 4 10/09/15 Pantoprazole Sodium [Protonix -] 40 mg PO BID #60 tablet.ec 10/09/15 Clindamycin [Cleocin -] 300 mg PO BID 10/20/15 Gabapentin 0 mg PO DAILY 02/09/17 Multivitamin [Poly-Vitamin] 1 each PO DAILY 02/09/17 Acetaminophen [Tylenol .Regular Strength -] 650 mg PO Q6H PRN #0 tablet Apixaban [Eliquis -] 5 mg PO BID tablet 02/20/17 Bacitracin - [Bacitracin Topical Ointment -] 1 applic TP BID tube 02/20/17 Budesonide/Formeterol Fumarate [SYMBICORT 80/4.5mcg -] 2 puff IH BID inhaler Diltiazem [Cardizem -] 30 mg PO QID tablet 02/20/17 Heparin - 5,000 unit IVPUSH PRN PRN #0 vial 02/20/17 Insulin (Levemir) [Levemir Vial] 15 units SQ HS ml 02/20/17 Insulin Sliding Scale [Novolog Vial Sliding Scale -] 1 vial SQ ACHS units 02/20 Nystatin Powder [Nystop Powder -] 1 applic TP DAILY applic 02/20/17 Picc Line Flush [Picc Line Flush -] 8 ml IVPUSH PRN PRN #0 ml 02/20/17 Silver Sulfadiazine 1% Top Cr [Silvadene -] 1 applic TP DAILY jar 02/20/17 Vancomycin 1,250 mg IVPB DAILY@1400 10 Days vial 02/20/17 Family Disease History - Family Disease History Family Disease History: Other: Brother (stomach cancer), Sister (breast cancer) Review of Systems - Review of Systems Constitutional: reports: Malaise, Weakness Eyes: reports: No Symptoms HENT: reports: No Symptoms Neck: reports: No Symptoms Cardiovascular: reports: No Symptoms Respiratory: reports: No Symptoms Gastrointestinal: reports: No Symptoms Genitourinary: reports: No Symptoms Musculoskeletal: reports: Muscle Pain, Other Integumentary: reports: Erythema, Wound Neurological: reports: Change in LOC Endocrine: reports: No Symptoms Hematology/Lymphatic: reports: No Symptoms Psychiatric: reports: No Symptoms Physical Exam Vital Signs: Vital Signs Temperature 99.6 F 06/19/17 14:34 Pulse Rate 78 06/19/17 14:34 Respiratory Rate 22 06/19/17 14:34 Blood Pressure 140/57 06/19/17 14:34 O2 Sat by Pulse Oximetry (%) 99 06/19/17 14:55 Constitutional: Yes: Moderate Distress, Obese Eyes: Yes: Conjunctiva Clear Neck: Yes: Supple Cardiovascular: Yes: Pulse Irregular Respiratory: Yes: On BiPap, Poor Air Entry Gastrointestinal: Yes: Normal Bowel Sounds, Soft Extremities: Yes: Erythema, Other (dressing removed multiple non healing ulcers on both legs left worse than the right with post wound containing abscess) Edema: LLE: 2+, RLE: 2+ Integumentary: Yes: Erythema, Other Wound/Incision: Yes: Dressing Removed (wounds looked at), Other Neurological: Yes: Alert, Oriented Psychiatric: Yes: Alert, Oriented Labs: CBC, BMP 06/19/17 09:20 06/19/17 06:35 Imaging - Results Chest X-ray: Report Reviewed, Image Reviewed X-ray: Report Reviewed, Image Reviewed Ultrasound: Report Reviewed, Image Reviewed Assessment/Plan patient examined we removed the dressing and took cx from the wound patient has an abscess pocket on left post part of the leg whose cx are also send i know the cx from previous and i suspect she might have the same now Problem List - Problems (1) Hyperkalemia Code(s): E87.5 - HYPERKALEMIA (2) Ulcers of both lower extremities Code(s): L97.919 - NON-PRS CHRONIC ULC UNSP PRT OF R LOW LEG W UNSP SEVERITY; L97.929 - NON-PRS CHRONIC ULC UNSP PRT OF L LOW LEG W UNSP SEVERITY Qualifiers: Non-pressure ulcer stage: unspecified non-pressure ulcer stage Qualified Code(s): L97.919 - Non-pressure chronic ulcer of unspecified part of right lower leg with unspecified severity; L97.929 - Non-pressure chronic ulcer of unspecified part of left lower leg with unspecified severity; L97.929 - Non- pressure chronic ulcer of unspecified part of left lower leg with unspecified severity; L97.929 - Non-pressure chronic ulcer of unspecified part of left lower leg with unspecified severity; L97.929 - Non-pressure chronic ulcer of unspecified part of left lower leg with unspecified severity (3) Unable to ambulate Code(s): R26.2 - DIFFICULTY IN WALKING, NOT ELSEWHERE CLASSIFIED (4) NOVA (acute kidney injury) Code(s): N17.9 - ACUTE KIDNEY FAILURE, UNSPECIFIED (5) Acute renal failure Code(s): N17.9 - ACUTE KIDNEY FAILURE, UNSPECIFIED (6) Afib Code(s): I48.91 - UNSPECIFIED ATRIAL FIBRILLATION sepsis leukocytosis electrolyte abn plan will start patient on abx nephro on case continue to monitor will need debridement await for all cx reports resp support rest as per icu monitor wbc closely cc 45 min
[2017-06-19] MEDS ORDERED: MEROPENEM 500 MG VIAL (RESTRICTED TO ID) IVPB SCH (16:00)
[2017-06-19 16:24] LABS: BASO % 0.3 % (0-2.0); EOS % 0.7 % (0-4.5); HEMATOCRIT 30.4 % (32.4-45.2); HEMOGLOBIN 10.3 GM/dL (10.7-15.3); LYMPH % 5.3 % (8-40); MCH 27.5 pg (25.7-33.7); MCHC 33.7 g/dl (32.0-36.0); MEAN CELL VOLUME 81.4 fl (80-96); MEAN PLT VOLUME 8.5 fl (7.5-11.1); MONO % 4.7 % (3.8-10.2); PLATELET COUNT 427 K/MM3 (134-434); RBC 3.74 M/mm3 (3.60-5.2); RDW 13.9 % (11.6-15.6); WHITE BLOOD COUNT 28.1 K/mm3 (4.0-10.0)
--- NOTE | 2017-06-19 16:26 | PN ---
Progress Note (short form) - Note Progress Note: Pt seen this am. s/p Left femoral shiley with HD yesterday. Vital Signs Period Temp Pulse Resp BP Sys/Callahan Pulse Ox Last 24 Hr 98.3 F-100.7 F 69-91 14-22 75-140/40-100 95-100 GEN: arrousable and responds to pain LE: b/l lower ext with numberous superficial ulcers on b/l lower ext from above the ankle to below the knee. Left side worse than right and a lateral area with necrotic tissue. Left heel with large ulcer, no calcaneous exposed, grantulation tissue at base. clean. CBC, BMP 06/19/17 06:35 Microbiology 06/18/17 15:00 Blood - Peripheral Venous Blood Culture - Preliminary NO GROWTH OBTAINED AFTER 24 HOURS, INCUBATION TO CONTINUE FOR 4 DAYS. 06/18/17 15:00 Blood - Peripheral Venous Blood Culture - Preliminary NO GROWTH OBTAINED AFTER 24 HOURS, INCUBATION TO CONTINUE FOR 4 DAYS. Laboratory Tests 06/19/17 06:35 Sodium 130 L Potassium 4.9 Chloride 95 L Carbon Dioxide 18 L Anion Gap 17 H BUN 103 H Creatinine 3.3 H Creat Clearance w eGFR 14.57 A/p: 52 yo female with ARF on HD, b/l lower ext wounds D/w Dr. Calderon, will plan for debridment in the am repeat dialysis as needed prior to the OR
[2017-06-19] MEDS ORDERED: ONDANSETRON 4 MG/2 ML VIAL IVPB PRN (16:35)
[2017-06-19] MEDS ORDERED: ONDANSETRON 4 MG/2 ML VIAL ONE (16:36)
[2017-06-19] MEDS ORDERED: INSULIN REGULAR HUMAN 100 UNITS/ML *VIAL ONE ×2 (17:01→17:12)
[2017-06-19] MEDS: MEROPENEM 500 MG PUSH 500 MG/10 ML DISP.SYRIN IVPUSH SCH (17:55)
--- NOTE | 2017-06-19 22:02 | CON.NEURO ---
Consult Consult Specialty:: GENIE GOMEZ-NEUROLOGY - History of Present Illness History of Present Illness: Patient is a 52 year old morbidly obese female with a significant past medical history of diabetes mellitus, atrial fibrillation on Eliquis 5mg BID at home and cardizem, gastritis, chronic lower extremity venous status ulcers with bilateral cellulitis. Patient follows Dr. Calderon in the wound clinic for her bilateral cellulitis wounds however, she has not followed up with Dr. Calderon for the last few months. Patient seen in the ICU after admission and noted to have altered mental status, and severe electrolyte imbalance. On admission, her creatinine was 5.6, WBC 26, sodium 121, potassium 8.5. Dr. Epstein was consulted for emergent dialysis. A dialysis cathether was placed by Dr. Calderon. Patient's brother was in the room and provided some of the history, however, he is a poor historian. Brother reports that patient has fallen multiple times at home and was incontinent. He reports that she did her own wound care but he cannot recall her current medications or aware if she is complaint with her home meds. He reported that patient was on Clindamycin for her wounds. Brother reports AMS and lethargy for last 3 days at home. Will order head CT for AMS. 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 Will place on a heparin drip since she has AMS and unable to take her eliquis 5mg BID at this time. Will consult cardiology. ER course was notable for: (1) wbc 26.7 with chills noted (2) na 121, K. 8.5, bun 134, creat 5.6, gluc 236: given insulin, d50, kayexelate , saline, and calcium gluconate (3) renal consult stat for 8.5K, dialysis today as per renal (4) bp 86/50 in ICU, on venti mask (5) severe bilateral leg wounds with multiple diabetic ulcers, with reddened skin, foul odor on both bilateral lower extremities and yellow slough. The dressing are (6) trialysis catheter put in by Dr Calderon for emergent dialy -CT head not done as yet as she was not stable enough to go down. She only reports she feels better"I am not confused" Denies headache/numbness/tingling, tells me she has difficulty moving legs due to ulcers. - Past Medical History Cardio/Vascular: Yes: AFIB Pulmonary: Yes: Asthma Gastrointestinal: Yes: Other (gallstones) Renal/: Yes: Renal Inusuff Infectious Disease: Yes: Other (LE cellulitis) Psych: Yes: Bipolar Endocrine: Yes: Diabetes Mellitus Dermatology: Yes: Cellulitis (b/l LE with ulcerations) - Alcohol/Substance Use Hx Alcohol Use: No History of Substance Use: reports: Prescription (narcotics) - Smoking History Smoking history: Never smoked Have you smoked in the past 12 months: No Aproximately how many cigarettes per day: 0 Home Medications - Allergies Allergies/Adverse Reactions: Allergies Allergy/AdvReac Type Severity Reaction Status Date / Time nut - unspecified Allergy Verified 06/18/17 13:56 Penicillins Allergy Verified 06/18/17 13:56 - Home Medications Home Medications: Ambulatory Orders Insulin Sliding Scale [Novolog Vial Sliding Scale -] See Protocol SQ ACHS #7 pen 09/19/15 Albuterol Sulfate Inhaler - [Ventolin HFA Inhaler -] 1 - 2 inh PO Q4H #1 inhaler 10/09/15 Insulin Detemir [Levemir Flextouch] 5 unit SQ HS #0 10/09/15 Oxycodone HCl [Roxicodone -] 5 mg PO Q6H PRN #10 tablet MDD 4 10/09/15 Pantoprazole Sodium [Protonix -] 40 mg PO BID #60 tablet.ec 10/09/15 Clindamycin [Cleocin -] 300 mg PO BID 10/20/15 Gabapentin 0 mg PO DAILY 02/09/17 Multivitamin [Poly-Vitamin] 1 each PO DAILY 02/09/17 Acetaminophen [Tylenol .Regular Strength -] 650 mg PO Q6H PRN #0 tablet Apixaban [Eliquis -] 5 mg PO BID tablet 02/20/17 Bacitracin - [Bacitracin Topical Ointment -] 1 applic TP BID tube 02/20/17 Budesonide/Formeterol Fumarate [SYMBICORT 80/4.5mcg -] 2 puff IH BID inhaler Diltiazem [Cardizem -] 30 mg PO QID tablet 02/20/17 Heparin - 5,000 unit IVPUSH PRN PRN #0 vial 02/20/17 Insulin (Levemir) [Levemir Vial] 15 units SQ HS ml 02/20/17 Insulin Sliding Scale [Novolog Vial Sliding Scale -] 1 vial SQ ACHS units 02/20 Nystatin Powder [Nystop Powder -] 1 applic TP DAILY applic 02/20/17 Picc Line Flush [Picc Line Flush -] 8 ml IVPUSH PRN PRN #0 ml 02/20/17 Silver Sulfadiazine 1% Top Cr [Silvadene -] 1 applic TP DAILY jar 02/20/17 Vancomycin 1,250 mg IVPB DAILY@1400 10 Days vial 02/20/17 Family Disease History - Family Disease History Family Disease History: Other: Brother (stomach cancer), Sister (breast cancer) Physical Exam-Neuro Vital Signs: Vital Signs Temperature 97.4 F L 06/19/17 18:10 Pulse Rate 100 H 06/19/17 21:00 Respiratory Rate 18 06/19/17 21:00 Blood Pressure 94/54 06/19/17 21:00 O2 Sat by Pulse Oximetry (%) 98 06/19/17 21:30 Labs: CBC, BMP 06/19/17 15:45 INR, PTT INR 1.16 (0.82-1.09) H 06/18/17 20:30 - Neuro Exam Level Of Consciousness: Yes: Alert (Pt. is easily arousable to voice commands, follows 1 step commands, squeezes hands attempts to move legs.), Oriented to Person, Oriented to Place Eyes: Yes: PERRL Speech: Garbled (hypophonoc) Gag: Present DTR's: 0 Left Achilles, 0 Right Achilles, 1+ Left Bicep, 1+ Right Bicep, 1+ Left Tricep, 1+ Right Tricep, 1+ Left Brachioradialis, 1+ Right Brachioradialis Response to light touch: Normal (withdraws all 4 ext. to pain, unable to test rest of sensation) Coordination: Normal: Finger to Nose (Unable to test coordination) Motor Strength: 2/5: Left Arm, Right Arm, Left Leg, Right Leg (Strength exam is limited due to pt. not being able to exert effort.) Gait: Deferred Assessment/Plan Pt. with improving metabolic/septic encephalopathy. Her exam does not reveal focality. She has improved mental status araiza since dialysis, there appears to be no evidence for a cerebrovascular event as suspected earlier in her hospital course. No indication for imaging brain as she is improving. Please do not hesitate to call for further assistance as needed. Thank you, Wendy Blevins MD [phone]
--- NOTE | 2017-06-19 22:19 | CONSULT ---
Consult Consult Specialty:: endocrine Referred by:: dr.iyad franklin Reason for Consultation:: diabetes mellitus/hyperglycemia - History of Present Illness Chief Complaint: diabetic foot infecition History of Present Illness: 52 year old morbidly obese female with a significant past medical history of diabetes mellitus, atrial fibrillation on Eliquis 5mg BID at home and cardizem, gastritis, chronic lower extremity venous status ulcers with bilateral cellulitis. Patient follows Dr. Calderon in the wound clinic for her bilateral cellulitis wounds however, she has not followed up with Dr. Calderon for the last few months.has taken insulin by pen noting her sugars have been higher no low sugars recently. she feeling has difficulty walking and is severely limited in adl. - History Source History Provided By: Patient - Past Medical History Cardio/Vascular: Yes: AFIB Pulmonary: Yes: Asthma Gastrointestinal: Yes: Other (gallstones) Renal/: Yes: Renal Inusuff Infectious Disease: Yes: Other (LE cellulitis) Psych: Yes: Bipolar Endocrine: Yes: Diabetes Mellitus Dermatology: Yes: Cellulitis (b/l LE with ulcerations) - Alcohol/Substance Use Hx Alcohol Use: No History of Substance Use: reports: Prescription (narcotics) - Smoking History Smoking history: Never smoked Have you smoked in the past 12 months: No Aproximately how many cigarettes per day: 0 Home Medications - Allergies Allergies/Adverse Reactions: Allergies Allergy/AdvReac Type Severity Reaction Status Date / Time nut - unspecified Allergy Verified 06/18/17 13:56 Penicillins Allergy Verified 06/18/17 13:56 - Home Medications Home Medications: Ambulatory Orders Insulin Sliding Scale [Novolog Vial Sliding Scale -] See Protocol SQ ACHS #7 pen 09/19/15 Albuterol Sulfate Inhaler - [Ventolin HFA Inhaler -] 1 - 2 inh PO Q4H #1 inhaler 10/09/15 Insulin Detemir [Levemir Flextouch] 5 unit SQ HS #0 10/09/15 Oxycodone HCl [Roxicodone -] 5 mg PO Q6H PRN #10 tablet MDD 4 10/09/15 Pantoprazole Sodium [Protonix -] 40 mg PO BID #60 tablet.ec 10/09/15 Clindamycin [Cleocin -] 300 mg PO BID 10/20/15 Gabapentin 0 mg PO DAILY 02/09/17 Multivitamin [Poly-Vitamin] 1 each PO DAILY 02/09/17 Acetaminophen [Tylenol .Regular Strength -] 650 mg PO Q6H PRN #0 tablet Apixaban [Eliquis -] 5 mg PO BID tablet 02/20/17 Bacitracin - [Bacitracin Topical Ointment -] 1 applic TP BID tube 02/20/17 Budesonide/Formeterol Fumarate [SYMBICORT 80/4.5mcg -] 2 puff IH BID inhaler Diltiazem [Cardizem -] 30 mg PO QID tablet 02/20/17 Heparin - 5,000 unit IVPUSH PRN PRN #0 vial 02/20/17 Insulin (Levemir) [Levemir Vial] 15 units SQ HS ml 02/20/17 Insulin Sliding Scale [Novolog Vial Sliding Scale -] 1 vial SQ ACHS units 02/20 Nystatin Powder [Nystop Powder -] 1 applic TP DAILY applic 02/20/17 Picc Line Flush [Picc Line Flush -] 8 ml IVPUSH PRN PRN #0 ml 02/20/17 Silver Sulfadiazine 1% Top Cr [Silvadene -] 1 applic TP DAILY jar 02/20/17 Vancomycin 1,250 mg IVPB DAILY@1400 10 Days vial 02/20/17 Family Disease History - Family Disease History Family Disease History: Other: Brother (stomach cancer), Sister (breast cancer) Review of Systems - Review of Systems Constitutional: reports: Lethargy, Weakness Neck: reports: Pain on Movement Cardiovascular: reports: Palpitations, Shortness of Breath Respiratory: reports: Exercise Intolerance, Orthopnea, SOB on Exertion Gastrointestinal: reports: Constipation Genitourinary: reports: No Symptoms Breasts: reports: No Symptoms Reported Musculoskeletal: reports: Extremity Pain, Joint Pain, Joint Swelling, Muscle Pain, Muscle Cramps, Muscle Weakness Integumentary: reports: Blister, Lesions Endocrine: reports: Unexplained Weight Gain Physical Exam Vital Signs: Vital Signs Temperature 97.4 F L 06/19/17 18:10 Pulse Rate 100 H 06/19/17 21:00 Respiratory Rate 18 06/19/17 21:00 Blood Pressure 94/54 06/19/17 21:00 O2 Sat by Pulse Oximetry (%) 98 06/19/17 21:30 Constitutional: Yes: Anxious Eyes: Yes: EOM Intact HENT: Yes: Normocephalic Neck: Yes: Trachea Midline Cardiovascular: Yes: Tachycardia, Murmur Respiratory: Yes: On BiPap, Rales, Rhonchi, SOB, Tachypnea Gastrointestinal: Yes: Abdomen, Obese ...Rectal Exam: Yes: Deferred Renal/: Yes: WNL Musculoskeletal: Yes: Joint Stiffness, Joint Swelling, Muscle Pain, Muscle Weakness Extremities: Yes: Cool Edema: LLE: 2+, RLE: 2+ Peripheral Pulses WNL: No Wound/Incision: Yes: Well Approximated, Draining, Excoriated Neurological: Yes: Alert, Oriented Labs: CBC, BMP 06/19/17 15:45 Assessment/Plan Current Active Problems Altered mental status (Acute) Hyperkalemia (Acute) Renal failure (ARF), acute on chronic (Acute) Ulcers of both lower extremities (Acute) Unable to ambulate (Acute) Venous stasis (Acute) iddm hyperglycemia dka ag 17 Laboratory Results - last 24 hr 06/18/17 06/18/17 06/18/17 20:30 20:30 20:30 WBC RBC Hgb Hct MCV MCH MCHC RDW Plt Count MPV Neutrophils % Neutrophils % (Manual) Band Neutrophils % Lymphocytes % Lymphocytes % (Manual) Monocytes % Monocytes % (Manual) Eosinophils % Eosinophils % (Manual) Basophils % Basophils % (Manual) Myelocytes % (Man) Promyelocytes % (Man) Metamyelocytes Hypochromia Toxic Granulation Dohle Bodies Platelet Estimate Polychromasia Poikilocytosis Basophilic Stippling Anisocytosis Microcytosis Macrocytosis Spherocytes Sickle Cells Target Cells Tear Drop Cells Ovalocytes Stomatocytes Helmet Cells [place] Bodies [place] Rings [place] Cells Acanthocytes (Spur) Rouleaux Fragmented RBCs Schistocytes PT with INR 13.10 H INR 1.16 H PTT (Actin FS) Puncture Site ABG pH ABG pCO2 at Pt Temp ABG pO2 at Pt Temp ABG HCO3 ABG O2 Sat (Measured) ABG O2 Content ABG Base Excess Kwesi Test O2 Delivery Device Oxygen Flow Rate Vent Mode Vent Rate Mechanical Rate PEEP Pressure Support Vent Sodium 129 L Potassium 6.7 H* Chloride 101 Carbon Dioxide 9 L Anion Gap 19 H BUN 162 H* D Creatinine 5.4 H Creat Clearance w eGFR Random Glucose 306 H* Hemoglobin A1c % Lactic Acid 2.1 H Calcium 9.3 Phosphorus Magnesium Total Bilirubin AST ALT Alkaline Phosphatase Creatine Kinase Troponin I Total Protein Albumin Urine Color Urine Appearance Urine pH Ur Specific [place] Urine Protein Urine Glucose (UA) Urine Ketones Urine Blood Urine Nitrite Urine Bilirubin Urine Urobilinogen Ur Leukocyte Esterase Urine WBC (Auto) Urine RBC (Auto) Ur Epithelial Cells Urine Bacteria Hyaline Casts Granular Casts Urine Mucus Urine Osmolality Random Vancomycin 06/18/17 06/18/17 06/18/17 23:40 23:45 23:45 WBC RBC Hgb Hct MCV MCH MCHC RDW Plt Count MPV Neutrophils % Neutrophils % (Manual) Band Neutrophils % Lymphocytes % Lymphocytes % (Manual) Monocytes % Monocytes % (Manual) Eosinophils % Eosinophils % (Manual) Basophils % Basophils % (Manual) Myelocytes % (Man) Promyelocytes % (Man) Metamyelocytes Hypochromia Toxic Granulation Dohle Bodies Platelet Estimate Polychromasia Poikilocytosis Basophilic Stippling Anisocytosis Microcytosis Macrocytosis Spherocytes Sickle Cells Target Cells Tear Drop Cells Ovalocytes Stomatocytes Helmet Cells [place] Bodies [place] Rings Ambreen Cells Acanthocytes (Spur) Rouleaux Fragmented RBCs Schistocytes PT with INR INR PTT (Actin FS) Puncture Site ABG pH ABG pCO2 at Pt Temp ABG pO2 at Pt Temp ABG HCO3 ABG O2 Sat (Measured) ABG O2 Content ABG Base Excess Kwesi Test O2 Delivery Device Oxygen Flow Rate Vent Mode Vent Rate Mechanical Rate PEEP Pressure Support Vent Sodium 132 L Potassium 3.7 Chloride 95 L Carbon Dioxide 25 Anion Gap 12 BUN 86 H D Creatinine 2.9 H Creat Clearance w eGFR Random Glucose 156 H Hemoglobin A1c % Lactic Acid Calcium 8.4 L Phosphorus Magnesium Total Bilirubin AST ALT Alkaline Phosphatase Creatine Kinase Troponin I Total Protein Albumin Urine Color Yellow Urine Appearance Clear Urine pH 5.0 Ur Specific [place] 1.020 Urine Protein 1+ H Urine Glucose (UA) Negative Urine Ketones Negative Urine Blood Negative Urine Nitrite Negative Urine Bilirubin Negative Urine Urobilinogen Negative Ur Leukocyte Esterase Negative Urine WBC (Auto) 1 Urine RBC (Auto) <1 Ur Epithelial Cells Rare Urine Bacteria Rare Hyaline Casts 7 Granular Casts 1 Urine Mucus Rare Urine Osmolality 390 Random Vancomycin 06/19/17 06/19/17 06/19/17 06:35 06:35 09:20 WBC 30.2 H* RBC 3.95 Hgb 10.4 L D Hct 32.3 L D MCV 81.8 MCH 26.4 MCHC 32.2 RDW 14.1 Plt Count 444 H D MPV 8.1 Neutrophils % No Result Required. Neutrophils % (Manual) 84.8 H Band Neutrophils % 0.0 Lymphocytes % No Result Required. Lymphocytes % (Manual) 5.1 L Monocytes % Monocytes % (Manual) 8 D Eosinophils % Eosinophils % (Manual) 1.0 D Basophils % Basophils % (Manual) 0.0 Myelocytes % (Man) 0 Promyelocytes % (Man) 0 Metamyelocytes 1 Hypochromia 0 Toxic Granulation 0 Dohle Bodies 0 Platelet Estimate Increased Polychromasia 0 Poikilocytosis 0 Basophilic Stippling 0 Anisocytosis 0 Microcytosis 0 Macrocytosis 0 Spherocytes 0 Sickle Cells 0 Target Cells 0 Tear Drop Cells 0 Ovalocytes 0 Stomatocytes 0 Helmet Cells 0 [place] Bodies 0 [place] Rings 0 Ambreen Cells 0 Acanthocytes (Spur) 0 Rouleaux 0 Fragmented RBCs 0 Schistocytes 0 PT with INR INR PTT (Actin FS) Puncture Site ABG pH ABG pCO2 at Pt Temp ABG pO2 at Pt Temp ABG HCO3 ABG O2 Sat (Measured) ABG O2 Content ABG Base Excess Kw[place] Test O2 Delivery Device Oxygen Flow Rate Vent Mode Vent Rate Mechanical Rate PEEP Pressure Support Vent Sodium 130 L Potassium 4.9 Chloride 95 L Carbon Dioxide 18 L Anion Gap 17 H BUN 103 H Creatinine 3.3 H Creat Clearance w eGFR 14.57 Random Glucose 205 H Hemoglobin A1c % 10.6 H Lactic Acid Calcium 8.1 L Phosphorus 5.6 H Magnesium 2.7 H Total Bilirubin 0.3 AST 9 L ALT 19 Alkaline Phosphatase 130 H Creatine Kinase Troponin I Total Protein 6.4 Albumin 2.3 L Urine Color Urine Appearance Urine pH Ur Specific [place] Urine Protein Urine Glucose (UA) Urine Ketones Urine Blood Urine Nitrite Urine Bilirubin Urine Urobilinogen Ur Leukocyte Esterase Urine WBC (Auto) Urine RBC (Auto) Ur Epithelial Cells Urine Bacteria Hyaline Casts Granular Casts Urine Mucus Urine Osmolality Random Vancomycin 06/19/17 06/19/17 06/19/17 09:20 09:20 10:20 WBC RBC Hgb Hct MCV MCH MCHC RDW Plt Count MPV Neutrophils % Neutrophils % (Manual) Band Neutrophils % Lymphocytes % Lymphocytes % (Manual) Monocytes % Monocytes % (Manual) Eosinophils % Eosinophils % (Manual) Basophils % Basophils % (Manual) Myelocytes % (Man) Promyelocytes % (Man) Metamyelocytes Hypochromia Toxic Granulation Dohle Bodies Platelet Estimate Polychromasia Poikilocytosis Basophilic Stippling Anisocytosis Microcytosis Macrocytosis Spherocytes Sickle Cells Target Cells Tear Drop Cells Ovalocytes Stomatocytes Helmet Cells [place] Bodies [place] Rings [place] Cells Acanthocytes (Spur) Rouleaux Fragmented RBCs Schistocytes PT with INR INR PTT (Actin FS) 27.9 D Puncture Site ABG pH ABG pCO2 at Pt Temp ABG pO2 at Pt Temp ABG HCO3 ABG O2 Sat (Measured) ABG O2 Content ABG Base Excess Kwesi Test O2 Delivery Device Oxygen Flow Rate Vent Mode Vent Rate Mechanical Rate PEEP Pressure Support Vent Sodium Potassium Chloride Carbon Dioxide Anion Gap BUN Creatinine Creat Clearance w eGFR Random Glucose Hemoglobin A1c % Lactic Acid 2.8 H* Calcium Phosphorus Magnesium Total Bilirubin AST ALT Alkaline Phosphatase Creatine Kinase 131 Troponin I < 0.02 Total Protein Albumin Urine Color Urine Appearance Urine pH Ur Specific [place] Urine Protein Urine Glucose (UA) Urine Ketones Urine Blood Urine Nitrite Urine Bilirubin Urine Urobilinogen Ur Leukocyte Esterase Urine WBC (Auto) Urine RBC (Auto) Ur Epithelial Cells Urine Bacteria Hyaline Casts Granular Casts Urine Mucus Urine Osmolality Random Vancomycin 06/19/17 06/19/17 06/19/17 11:45 15:45 15:45 WBC 28.1 H RBC 3.74 Hgb 10.3 L Hct 30.4 L MCV 81.4 MCH 27.5 MCHC 33.7 RDW 13.9 Plt Count 427 MPV 8.5 Neutrophils % 89.0 H Neutrophils % (Manual) Band Neutrophils % Lymphocytes % 5.3 L D Lymphocytes % (Manual) Monocytes % 4.7 Monocytes % (Manual) Eosinophils % 0.7 D Eosinophils % (Manual) Basophils % 0.3 Basophils % (Manual) Myelocytes % (Man) Promyelocytes % (Man) Metamyelocytes Hypochromia Toxic Granulation Dohle Bodies Platelet Estimate Polychromasia Poikilocytosis Basophilic Stippling Anisocytosis Microcytosis Macrocytosis Spherocytes Sickle Cells Target Cells Tear Drop Cells Ovalocytes Stomatocytes Helmet Cells [place] Bodies [place] Rings Ambreen Cells Acanthocytes (Spur) Rouleaux Fragmented RBCs Schistocytes PT with INR INR PTT (Actin FS) Puncture Site Left radial ABG pH 7.44 ABG pCO2 at Pt Temp 27.8 L ABG pO2 at Pt Temp 149.0 H ABG HCO3 18.4 L ABG O2 Sat (Measured) 99.5 H ABG O2 Content 11.2 L ABG Base Excess -4.8 L Kwesi Test Positive O2 Delivery Device Other Oxygen Flow Rate 40 lpm Vent Mode Cpap +8 Vent Rate 0 Mechanical Rate Bipab PEEP 0.0 Pressure Support Vent 0 Sodium Potassium Chloride Carbon Dioxide Anion Gap BUN Creatinine Creat Clearance w eGFR Random Glucose Hemoglobin A1c % Lactic Acid 2.2 H* Calcium Phosphorus Magnesium Total Bilirubin AST ALT Alkaline Phosphatase Creatine Kinase Troponin I Total Protein Albumin Urine Color Urine Appearance Urine pH Ur Specific [place] Urine Protein Urine Glucose (UA) Urine Ketones Urine Blood Urine Nitrite Urine Bilirubin Urine Urobilinogen Ur Leukocyte Esterase Urine WBC (Auto) Urine RBC (Auto) Ur Epithelial Cells Urine Bacteria Hyaline Casts Granular Casts Urine Mucus Urine Osmolality Random Vancomycin 06/19/17 15:45 WBC RBC Hgb Hct MCV MCH MCHC RDW Plt Count MPV Neutrophils % Neutrophils % (Manual) Band Neutrophils % Lymphocytes % Lymphocytes % (Manual) Monocytes % Monocytes % (Manual) Eosinophils % Eosinophils % (Manual) Basophils % Basophils % (Manual) Myelocytes % (Man) Promyelocytes % (Man) Metamyelocytes Hypochromia Toxic Granulation Dohle Bodies Platelet Estimate Polychromasia Poikilocytosis Basophilic Stippling Anisocytosis Microcytosis Macrocytosis Spherocytes Sickle Cells Target Cells Tear Drop Cells Ovalocytes Stomatocytes Helmet Cells [place] Bodies [place] Rings [place] Cells Acanthocytes (Spur) Rouleaux Fragmented RBCs Schistocytes PT with INR INR PTT (Actin FS) Puncture Site ABG pH ABG pCO2 at Pt Temp ABG pO2 at Pt Temp ABG HCO3 ABG O2 Sat (Measured) ABG O2 Content ABG Base Excess Kwesi Test O2 Delivery Device Oxygen Flow Rate Vent Mode Vent Rate Mechanical Rate PEEP Pressure Support Vent Sodium Potassium Chloride Carbon Dioxide Anion Gap BUN Creatinine Creat Clearance w eGFR Random Glucose Hemoglobin A1c % Lactic Acid Calcium Phosphorus Magnesium Total Bilirubin AST ALT Alkaline Phosphatase Creatine Kinase Troponin I Total Protein Albumin Urine Color Urine Appearance Urine pH Ur Specific [place] Urine Protein Urine Glucose (UA) Urine Ketones Urine Blood Urine Nitrite Urine Bilirubin Urine Urobilinogen Ur Leukocyte Esterase Urine WBC (Auto) Urine RBC (Auto) Ur Epithelial Cells Urine Bacteria Hyaline Casts Granular Casts Urine Mucus Urine Osmolality Random Vancomycin 1.231 plan iv insulin drip for improved control glycemia and morbid condition bgm q1-2 hrs concur with id and iv abx cultures pending for wounds recheck cmp[ follow progress clinically ivfluids correction of volemia
[2017-06-19 22:37] LABS: ALK PHOS 116 U/L (45-117); ANION GAP 12 (8-16); BILIRUBIN,TOTAL 0.8 mg/dL (0.2-1.0); BLOOD UREA NITROGEN 59 mg/dL (7-18); CALCIUM 7.3 mg/dL (8.5-10.1); CHLORIDE 92 mmol/L (98-107); CO2 27 mmol/L (21-32); CREATININE 1.8 mg/dL (0.55-1.02); GLUCOSE,RANDOM 143 mg/dL (74-106); POTASSIUM 3.5 mmol/L (3.5-5.1); SGOT/AST 13 U/L (15-37); SGPT/ALT 18 U/L (12-78); SODIUM 131 mmol/L (136-145); TOT PROT 5.7 g/dl (6.4-8.2)
[2017-06-20] MEDS: PHENYLEPHRINE HCL 20,000 MCG in SODIUM CHLORIDE 248 ML IVPB SCH ×2 (01:36→07:46)
[2017-06-20] MEDS: MUPIROCIN 2% TOPICAL OINTMENT FOR DECOLONIZATION NS SCH ×3 (01:38→23:23)
[2017-06-20] MEDS: MEROPENEM 500 MG PUSH 500 MG/10 ML DISP.SYRIN IVPUSH SCH ×3 (01:40→23:24)
[2017-06-20] MEDS: CHLORHEXIDINE GLUCONATE 4% CLEANSER FOR DECOLONIZATION TP SCH ×2 (01:40→23:24)
[2017-06-20] MEDS: DEXTROSE 5%-WATER - 1,000 ML IV SCH (01:41)
[2017-06-20] MEDS ORDERED: PHENYLEPHRINE HCL 10 MG/1 ML SINGLE DOSE VIAL ONE ×2 (05:48→09:20)
[2017-06-20 07:17] LABS: ALBUMIN 1.9 g/dl (3.4-5.0); ANION GAP 12 (8-16); BLOOD UREA NITROGEN 55 mg/dL (7-18); CHLORIDE 93 mmol/L (98-107); CO2 27 mmol/L (21-32); GLUCOSE,RANDOM 133 mg/dL (74-106); MAGNESIUM 2.4 mg/dL (1.8-2.4); PHOSPHOROUS 3.7 mg/dL (2.5-4.9); POTASSIUM 3.7 mmol/L (3.5-5.1); SGOT/AST 11 U/L (15-37); SODIUM 132 mmol/L (136-145)
[2017-06-20 07:19] LABS: ALK PHOS 118 U/L (45-117); BILIRUBIN,TOTAL 0.4 mg/dL (0.2-1.0); CREATININE 1.5 mg/dL (0.55-1.02); SGPT/ALT 17 U/L (12-78); TOT PROT 5.6 g/dl (6.4-8.2)
[2017-06-20] MEDS: INSULIN SLIDING SCALE (NOVOLOG) 1 VIAL SQ SCH ×3 (07:43→18:28)
[2017-06-20 08:10] LABS: BASO % 0.2 % (0-2.0); EOS % 0.4 % (0-4.5); HEMATOCRIT 31.1 % (32.4-45.2); HEMOGLOBIN 10.2 GM/dL (10.7-15.3); LYMPH % 6.1 % (8-40); MEAN CELL VOLUME 81.8 fl (80-96); MEAN PLT VOLUME 8.5 fl (7.5-11.1); MONO % 5.7 % (3.8-10.2); NEUT % 87.6 % (42.8-82.8); PLATELET COUNT 336 K/MM3 (134-434); RBC 3.79 M/mm3 (3.60-5.2); RDW 14.4 % (11.6-15.6)
--- NOTE | 2017-06-20 08:57 | EKG ---
Test Reason : Blood Pressure : / mmHG Vent. Rate : 068 BPM Atrial Rate : 068 BPM P-R Int : 200 ms QRS Dur : 070 ms QT Int : 376 ms P-R-T Axes : 028 017 014 degrees QTc Int : 399 ms NORMAL SINUS RHYTHM LOW VOLTAGE QRS BORDERLINE ECG WHEN COMPARED WITH ECG OF 19-JUN-2017 00:12, NO SIGNIFICANT CHANGE WAS FOUND Confirmed by VENKAT OSMAN MD ([id number]) on 06/19/2017 2:48:38 PM Referred By: GRECIA BOUDREAUX Confirmed By:VENKAT OSMAN MD
[2017-06-20] MEDS ORDERED: PT OWN MED DRAWER 7, Y5N ONE ×2 (09:20→23:18)
--- NOTE | 2017-06-20 10:41 | PN ---
Progress Note, Physician Chief Complaint: awake alert shiley placed for hD norepineprine for HD support - hypotensive - Current Medication List Current Medications: Active Medications Albuterol/Ipratropium (Duoneb -) 1 amp NEB Q4H PRN PRN Reason: SHORTNESS OF BREATH Chlorhexidine Gluconate (Hibiclens For Decolonization -) 1 applic TP HS LANCE Last Admin: 06/20/17 01:40 Dose: 1 applic Heparin Sodium (Porcine) (Heparin -) 1,000 unit IVPUSH PRN PRN PRN Reason: Heparin Heparin Sodium (Porcine) (Heparin -) 5,000 unit IVPUSH PRN PRN PRN Reason: Heparin Phenylephrine HCl 20,000 mcg/ (Sodium Chloride) 250 mls @ 37.5 mls/hr IVPB ASDIR LANCE; 50 MCG/MIN PRN Reason: Protocol Last Titration: 06/20/17 09:35 Dose: 150 mcg/min, 112.5 mls/hr Dextrose (D5w -) 1,000 mls @ 42 mls/hr IV ASDIR LANCE Last Admin: 06/20/17 01:41 Dose: 42 mls/hr HEPARIN SOD,PORK IN 0.45% NACL (Heparin-1/2ns 25,000 Units/500) 25,000 units in 500 mls @ 20 mls/hr IVPB TITR LANCE; 1,000 UNITS/HR PRN Reason: Protocol Last Admin: 06/19/17 10:00 Dose: Not Given Meropenem (Merrem (Restricted To Id) -) 500 mg in 10 mls @ 120 mls/hr IVPUSH BID [facility] Last Admin: 06/20/17 01:40 Dose: 120 mls/hr Insulin Aspart (Novolog Vial Sliding Scale -) 1 vial SQ ACHS LANCE PRN Reason: Protocol Last Admin: 06/20/17 07:43 Dose: Not Given Mupirocin (Bactroban Ointment (For Decolonization) -) 1 applic NS BID [facility] Stop: 06/23/17 21:59 Last Admin: 06/20/17 01:38 Dose: 1 applic Ondansetron HCl (Zofran Injection) 4 mg IVPB Q6H PRN PRN Reason: NAUSEA - Objective Vital Signs: Vital Signs Temperature 99.3 F 06/20/17 09:58 Pulse Rate 94 H 06/20/17 09:58 Respiratory Rate 22 06/20/17 09:58 Blood Pressure 75/30 06/20/17 09:58 O2 Sat by Pulse Oximetry (%) 100 06/20/17 09:14 Constitutional: Yes: Calm Cardiovascular: Yes: Regular Rate and Rhythm, S1, S2 Respiratory: Yes: CTA Bilaterally Gastrointestinal: Yes: Normal Bowel Sounds, Soft Wound/Incision: Yes: Dressing Removed (left heel ulcer seen and multiple ulcers on the legs) Neurological: Yes: Alert, Oriented Labs: CBC, BMP 06/20/17 06:12 06/20/17 06:12 INR, PTT INR 1.16 (0.82-1.09) H 06/18/17 20:30 Problem List - Problems (1) Leukocytosis Assessment/Plan: ID on board on iv abx culture sent Code(s): D72.829 - ELEVATED WHITE BLOOD CELL COUNT, UNSPECIFIED (2) Ulcers of both lower extremities Assessment/Plan: seen by vascular possible debridement is hypotensive on norepinephrine drip Code(s): L97.919 - NON-PRS CHRONIC ULC UNSP PRT OF R LOW LEG W UNSP SEVERITY; L97.929 - NON-PRS CHRONIC ULC UNSP PRT OF L LOW LEG W UNSP SEVERITY Qualifiers: Non-pressure ulcer stage: unspecified non-pressure ulcer stage Qualified Code(s): L97.919 - Non-pressure chronic ulcer of unspecified part of right lower leg with unspecified severity; L97.929 - Non-pressure chronic ulcer of unspecified part of left lower leg with unspecified severity; L97.929 - Non- pressure chronic ulcer of unspecified part of left lower leg with unspecified severity; L97.929 - Non-pressure chronic ulcer of unspecified part of left lower leg with unspecified severity; L97.929 - Non-pressure chronic ulcer of unspecified part of left lower leg with unspecified severity (3) Hyperkalemia Assessment/Plan: improved Code(s): E87.5 - HYPERKALEMIA (4) NOVA (acute kidney injury) Assessment/Plan: HD per renal Code(s): N17.9 - ACUTE KIDNEY FAILURE, UNSPECIFIED
[2017-06-20] MEDS ORDERED: NOREPINEPHRINE BITARTRATE 4,000 MCG in SODIUM CHLORIDE 496 ML IV SCH (12:15)
[2017-06-20] MEDS ORDERED: SODIUM CHLORIDE 1,000 ML IV SCH (12:15)
[2017-06-20] MEDS: NOREPINEPHRINE BITARTRATE 8,000 MCG in SODIUM CHLORIDE 492 ML IV SCH (12:25)
--- NOTE | 2017-06-20 12:32 | PN ---
Teaching Attending Note Name of Resident: Eder Mullins ATTENDING PHYSICIAN STATEMENT I saw and evaluated the patient. I reviewed the resident's note and discussed the case with the resident. I agree with the resident's findings and plan as documented. SUBJECTIVE: Patient seen and examined in the ICU. Awake and alert. Remains on 150mcq Phenylephrine for hemodynamic support. Denies CP or SOB. Legs are uncomfortable/pain. OBJECTIVE: Intake & Output 06/17/17 06/18/17 06/19/17 06/20/17 23:59 23:59 23:59 23:59 Intake Total 1544 1170 Output Total 50 1400 1400 Balance -50 144 -230 Weight 230 lb 119 lb 3.2 oz 257 lb 9 oz Last Vital Signs Temp Pulse Resp BP Pulse Ox 99.3 F 94 H 22 75/30 99 06/20/17 09:58 06/20/17 09:58 06/20/17 09:58 06/20/17 09:58 06/20/17 11:29 Active Medications Albuterol/Ipratropium (Duoneb -) 1 amp NEB Q4H PRN PRN Reason: SHORTNESS OF BREATH Chlorhexidine Gluconate (Hibiclens For Decolonization -) 1 applic TP HS LANCE Last Admin: 06/20/17 01:40 Dose: 1 applic Heparin Sodium (Porcine) (Heparin -) 1,000 unit IVPUSH PRN PRN PRN Reason: Heparin Heparin Sodium (Porcine) (Heparin -) 5,000 unit IVPUSH PRN PRN PRN Reason: Heparin HEPARIN SOD,PORK IN 0.45% NACL (Heparin-1/2ns 25,000 Units/500) 25,000 units in 500 mls @ 20 mls/hr IVPB TITR LANCE; 1,000 UNITS/HR PRN Reason: Protocol Last Admin: 06/19/17 10:00 Dose: Not Given Meropenem (Merrem (Restricted To Id) -) 500 mg in 10 mls @ 120 mls/hr IVPUSH BID LANCE Last Admin: 06/20/17 10:52 Dose: 120 mls/hr Norepinephrine Bitartrate 4, (000 mcg/ Sodium Chloride) 500 mls @ 37.5 mls/hr IV TITR LANCE; 5 MCG/MIN PRN Reason: Protocol Sodium Chloride (Normal Saline -) 1,000 mls @ 100 mls/hr IV ASDIR LANCE Insulin Aspart (Novolog Vial Sliding Scale -) 1 vial SQ ACHS LANCE PRN Reason: Protocol Last Admin: 06/20/17 11:11 Dose: 4 units Mupirocin (Bactroban Ointment (For Decolonization) -) 1 applic NS BID LANCE Stop: 06/23/17 21:59 Last Admin: 06/20/17 10:51 Dose: 1 applic Ondansetron HCl (Zofran Injection) 4 mg IVPB Q6H PRN PRN Reason: NAUSEA Last Admin: 06/20/17 11:06 Dose: 4 mg Gen: Awake alert, NAD Heart: RRR Lung: decreased breath sounds at the bases Abd: soft, nontender Ext: + edema, chronic changes, multiple ulcers LLE lateral purulent, RLE medial purulent Laboratory Results - last 24 hr 06/18/17 06/19/17 06/19/17 20:30 09:20 10:20 WBC RBC Hgb Hct MCV MCH MCHC RDW Plt Count MPV Neutrophils % Neutrophils % (Manual) 84.8 H Band Neutrophils % 0.0 Lymphocytes % Lymphocytes % (Manual) 5.1 L Monocytes % Monocytes % (Manual) 8 D Eosinophils % Eosinophils % (Manual) 1.0 D Basophils % Basophils % (Manual) 0.0 Myelocytes % (Man) 0 Promyelocytes % (Man) 0 Metamyelocytes 1 Hypochromia 0 Toxic Granulation 0 Dohle Bodies 0 Platelet Estimate Increased Polychromasia 0 Poikilocytosis 0 Basophilic Stippling 0 Anisocytosis 0 Microcytosis 0 Macrocytosis 0 Spherocytes 0 Sickle Cells 0 Target Cells 0 Tear Drop Cells 0 Ovalocytes 0 Stomatocytes 0 Helmet Cells 0 [place] Bodies 0 Marshall Rings 0 Ambreen Cells 0 Acanthocytes (Spur) 0 Rouleaux 0 Fragmented RBCs 0 Schistocytes 0 PTT (Actin FS) Sodium Potassium Chloride Carbon Dioxide Anion Gap BUN Creatinine Creat Clearance w eGFR POC Glucometer Random Glucose Lactic Acid Calcium Phosphorus Magnesium Total Bilirubin AST ALT Alkaline Phosphatase Creatine Kinase 131 Troponin I < 0.02 Total Protein Albumin Random Vancomycin Hepatitis C Antibody 0.1 06/19/17 06/19/17 06/19/17 15:45 15:45 15:45 WBC 28.1 H RBC 3.74 Hgb 10.3 L Hct 30.4 L MCV 81.4 MCH 27.5 MCHC 33.7 RDW 13.9 Plt Count 427 MPV 8.5 Neutrophils % 89.0 H Neutrophils % (Manual) Band Neutrophils % Lymphocytes % 5.3 L D Lymphocytes % (Manual) Monocytes % 4.7 Monocytes % (Manual) Eosinophils % 0.7 D Eosinophils % (Manual) Basophils % 0.3 Basophils % (Manual) Myelocytes % (Man) Promyelocytes % (Man) Metamyelocytes Hypochromia Toxic Granulation Dohle Bodies Platelet Estimate Polychromasia Poikilocytosis Basophilic Stippling Anisocytosis Microcytosis Macrocytosis Spherocytes Sickle Cells Target Cells Tear Drop Cells Ovalocytes Stomatocytes Helmet Cells Gaming-[place] Bodies [place] Rings [place] Cells Acanthocytes (Spur) Rouleaux Fragmented RBCs Schistocytes PTT (Actin FS) Sodium Potassium Chloride Carbon Dioxide Anion Gap BUN Creatinine Creat Clearance w eGFR POC Glucometer Random Glucose Lactic Acid 2.2 H* Calcium Phosphorus Magnesium Total Bilirubin AST ALT Alkaline Phosphatase Creatine Kinase Troponin I Total Protein Albumin Random Vancomycin 1.231 Hepatitis C Antibody 06/19/17 06/19/17 06/20/17 21:00 21:20 06:12 WBC RBC Hgb Hct MCV MCH MCHC RDW Plt Count MPV Neutrophils % Neutrophils % (Manual) Band Neutrophils % Lymphocytes % Lymphocytes % (Manual) Monocytes % Monocytes % (Manual) Eosinophils % Eosinophils % (Manual) Basophils % Basophils % (Manual) Myelocytes % (Man) Promyelocytes % (Man) Metamyelocytes Hypochromia Toxic Granulation Dohle Bodies Platelet Estimate Polychromasia Poikilocytosis Basophilic Stippling Anisocytosis Microcytosis Macrocytosis Spherocytes Sickle Cells Target Cells Tear Drop Cells Ovalocytes Stomatocytes Helmet Cells Gaming-[place] Bodies [place] Rings [place] Cells Acanthocytes (Spur) Rouleaux Fragmented RBCs Schistocytes PTT (Actin FS) 26.5 L Sodium 131 L Potassium 3.5 Chloride 92 L Carbon Dioxide 27 Anion Gap 12 BUN 59 H D Creatinine 1.8 H Creat Clearance w eGFR 29.32 POC Glucometer Random Glucose 143 H Lactic Acid 1.7 Calcium 7.3 L Phosphorus Magnesium Total Bilirubin 0.8 D AST 13 L ALT 18 Alkaline Phosphatase 116 Creatine Kinase Troponin I Total Protein 5.7 L Albumin 2.0 L Random Vancomycin Hepatitis C Antibody 06/20/17 06/20/17 06/20/17 06:12 06:12 06:27 WBC 27.0 H RBC 3.79 Hgb 10.2 L Hct 31.1 L MCV 81.8 MCH 27.0 MCHC 33.0 RDW 14.4 Plt Count 336 D MPV 8.5 Neutrophils % 87.6 H Neutrophils % (Manual) Band Neutrophils % Lymphocytes % 6.1 L Lymphocytes % (Manual) Monocytes % 5.7 Monocytes % (Manual) Eosinophils % 0.4 Eosinophils % (Manual) Basophils % 0.2 Basophils % (Manual) Myelocytes % (Man) Promyelocytes % (Man) Metamyelocytes Hypochromia Toxic Granulation Dohle Bodies Platelet Estimate Polychromasia Poikilocytosis Basophilic Stippling Anisocytosis Microcytosis Macrocytosis Spherocytes Sickle Cells Target Cells Tear Drop Cells Ovalocytes Stomatocytes Helmet Cells Gaming-[place] Bodies [place] Rings [place] Cells Acanthocytes (Spur) Rouleaux Fragmented RBCs Schistocytes PTT (Actin FS) Sodium 132 L Potassium 3.7 Chloride 93 L Carbon Dioxide 27 Anion Gap 12 BUN 55 H Creatinine 1.5 H Creat Clearance w eGFR 36.19 POC Glucometer [id number] Random Glucose 133 H Lactic Acid Calcium 8.0 L Phosphorus 3.7 Magnesium 2.4 Total Bilirubin 0.4 D AST 11 L ALT 17 Alkaline Phosphatase 118 H Creatine Kinase Troponin I Total Protein 5.6 L Albumin 1.9 L Random Vancomycin Hepatitis C Antibody ASSESSMENT AND PLAN: Cellulitis/r/o Leg Abscesses Septic Shock Acute on Chronic Renal Failure Lactic Acidosis Atrial Fibrillation Uncontrolled DM Hyponatremia - IV antibiotics - f/u culturess - surgery evaluation for debridement - O2 to keep SpO2 >90% - NIPPV - IVF - monitor urine output, creatinine - Change pressors to NE and titrate to maintain MAP >65 - Aspiration precautions - NPO - DVT prophylaxis - continue ICU monitoring Dr Andre Critical care time spent in reviewing chart, evaluating patient and formulating plan 35 min
[2017-06-20] MEDS ORDERED: NOREPINEPHRINE BITARTRATE 4 MG/4 ML ML IV ONE ×2 (12:45→18:17)
[2017-06-20] MEDS ORDERED: NOREPINEPHRINE BITARTRATE 8,000 MCG in SODIUM CHLORIDE 492 ML IV SCH (12:45)
[2017-06-20] MEDS ORDERED: ONDANSETRON 4 MG/2 ML VIAL IVPUSH PRN ×2 (13:27→15:01)
[2017-06-20] MEDS ORDERED: LACTATED RINGERS SOLUTION 1,000 ML IV SCH ×2 (13:30→15:01)
--- NOTE | 2017-06-20 13:30 | PN ---
Physical Exam: SUBJECTIVE: Patient seen and examined The patient is a 52 year old female with a history of DM, afib, gastritis, cellulitis who was admitted for AMS secondary to nova with electrolyte derangement for urgent dialysis with associated hypotension. The patient is complaining of lower extremity pain due to her lower extremity wounds. She reports that her breathing is improved. Otherwise no acute events overnight. OBJECTIVE: Vital Signs Period Temp Pulse Resp BP Sys/Callahan Pulse Ox Last 24 Hr 97.4 F-100.4 F 76-120 18-22 66-140/5-84 97-100 GENERAL: The patient is awake, alert, and fully oriented, in no acute distress. HEAD: Normal with no signs of trauma. EYES: sclera anicteric, conjunctiva clear. No ptosis. ENT: oropharynx clear without exudates, moist mucous membranes. NECK: Trachea midline, full range of motion, supple. LUNGS: Breath sounds equal, clear to auscultation bilaterally, no wheezes, no crackles, no accessory muscle use. HEART: Regular rate and rhythm, S1, S2 without murmur, rub or gallop. ABDOMEN: Soft, nontender, nondistended, normoactive bowel sounds, no guarding, no rebound, no hepatosplenomegaly, no masses. EXTREMITIES: 2+ pulses, warm, well-perfused, 2+ edema. Lower extremity erythema and warmth with bilateral lower extremity wounds draining purulent fluid. NEUROLOGICAL: Normal speech, gait not observed. PSYCH: Normal mood, normal affect. SKIN: Warm, dry, normal turgor, no rashes or lesions noted Laboratory Results - last 24 hr 06/18/17 06/19/17 06/19/17 20:30 09:20 15:45 WBC 28.1 H RBC 3.74 Hgb 10.3 L Hct 30.4 L MCV 81.4 MCH 27.5 MCHC 33.7 RDW 13.9 Plt Count 427 MPV 8.5 Neutrophils % 89.0 H Neutrophils % (Manual) 84.8 H Band Neutrophils % 0.0 Lymphocytes % 5.3 L D Lymphocytes % (Manual) 5.1 L Monocytes % 4.7 Monocytes % (Manual) 8 D Eosinophils % 0.7 D Eosinophils % (Manual) 1.0 D Basophils % 0.3 Basophils % (Manual) 0.0 Myelocytes % (Man) 0 Promyelocytes % (Man) 0 Metamyelocytes 1 Hypochromia 0 Toxic Granulation 0 Dohle Bodies 0 Platelet Estimate Increased Polychromasia 0 Poikilocytosis 0 Basophilic Stippling 0 Anisocytosis 0 Microcytosis 0 Macrocytosis 0 Spherocytes 0 Sickle Cells 0 Target Cells 0 Tear Drop Cells 0 Ovalocytes 0 Stomatocytes 0 Helmet Cells 0 [place] Bodies 0 [place] Rings 0 Pierce Cells 0 Acanthocytes (Spur) 0 Rouleaux 0 Fragmented RBCs 0 Schistocytes 0 PTT (Actin FS) Sodium Potassium Chloride Carbon Dioxide Anion Gap BUN Creatinine Creat Clearance w eGFR POC Glucometer Random Glucose Lactic Acid Calcium Phosphorus Magnesium Total Bilirubin AST ALT Alkaline Phosphatase Total Protein Albumin Random Vancomycin Hepatitis C Antibody 0.1 06/19/17 06/19/17 06/19/17 15:45 15:45 21:00 WBC RBC Hgb Hct MCV MCH MCHC RDW Plt Count MPV Neutrophils % Neutrophils % (Manual) Band Neutrophils % Lymphocytes % Lymphocytes % (Manual) Monocytes % Monocytes % (Manual) Eosinophils % Eosinophils % (Manual) Basophils % Basophils % (Manual) Myelocytes % (Man) Promyelocytes % (Man) Metamyelocytes Hypochromia Toxic Granulation Dohle Bodies Platelet Estimate Polychromasia Poikilocytosis Basophilic Stippling Anisocytosis Microcytosis Macrocytosis Spherocytes Sickle Cells Target Cells Tear Drop Cells Ovalocytes Stomatocytes Helmet Cells [place] Bodies [place] Rings Pierce Cells Acanthocytes (Spur) Rouleaux Fragmented RBCs Schistocytes PTT (Actin FS) Sodium 131 L Potassium 3.5 Chloride 92 L Carbon Dioxide 27 Anion Gap 12 BUN 59 H D Creatinine 1.8 H Creat Clearance w eGFR 29.32 POC Glucometer Random Glucose 143 H Lactic Acid 2.2 H* Calcium 7.3 L Phosphorus Magnesium Total Bilirubin 0.8 D AST 13 L ALT 18 Alkaline Phosphatase 116 Total Protein 5.7 L Albumin 2.0 L Random Vancomycin 1.231 Hepatitis C Antibody 06/19/17 06/20/17 06/20/17 21:20 06:12 06:12 WBC 27.0 H RBC 3.79 Hgb 10.2 L Hct 31.1 L MCV 81.8 MCH 27.0 MCHC 33.0 RDW 14.4 Plt Count 336 D MPV 8.5 Neutrophils % 87.6 H Neutrophils % (Manual) Band Neutrophils % Lymphocytes % 6.1 L Lymphocytes % (Manual) Monocytes % 5.7 Monocytes % (Manual) Eosinophils % 0.4 Eosinophils % (Manual) Basophils % 0.2 Basophils % (Manual) Myelocytes % (Man) Promyelocytes % (Man) Metamyelocytes Hypochromia Toxic Granulation Dohle Bodies Platelet Estimate Polychromasia Poikilocytosis Basophilic Stippling Anisocytosis Microcytosis Macrocytosis Spherocytes Sickle Cells Target Cells Tear Drop Cells Ovalocytes Stomatocytes Helmet Cells [place] Bodies [place] Rings Pierce Cells Acanthocytes (Spur) Rouleaux Fragmented RBCs Schistocytes PTT (Actin FS) 26.5 L Sodium Potassium Chloride Carbon Dioxide Anion Gap BUN Creatinine Creat Clearance w eGFR POC Glucometer Random Glucose Lactic Acid 1.7 Calcium Phosphorus Magnesium Total Bilirubin AST ALT Alkaline Phosphatase Total Protein Albumin Random Vancomycin Hepatitis C Antibody 06/20/17 06/20/17 06:12 06:27 WBC RBC Hgb Hct MCV MCH MCHC RDW Plt Count MPV Neutrophils % Neutrophils % (Manual) Band Neutrophils % Lymphocytes % Lymphocytes % (Manual) Monocytes % Monocytes % (Manual) Eosinophils % Eosinophils % (Manual) Basophils % Basophils % (Manual) Myelocytes % (Man) Promyelocytes % (Man) Metamyelocytes Hypochromia Toxic Granulation Dohle Bodies Platelet Estimate Polychromasia Poikilocytosis Basophilic Stippling Anisocytosis Microcytosis Macrocytosis Spherocytes Sickle Cells Target Cells Tear Drop Cells Ovalocytes Stomatocytes Helmet Cells [place] Bodies [place] Rings Pierce Cells Acanthocytes (Spur) Rouleaux Fragmented RBCs Schistocytes PTT (Actin FS) Sodium 132 L Potassium 3.7 Chloride 93 L Carbon Dioxide 27 Anion Gap 12 BUN 55 H Creatinine 1.5 H Creat Clearance w eGFR 36.19 POC Glucometer [id number] Random Glucose 133 H Lactic Acid Calcium 8.0 L Phosphorus 3.7 Magnesium 2.4 Total Bilirubin 0.4 D AST 11 L ALT 17 Alkaline Phosphatase 118 H Total Protein 5.6 L Albumin 1.9 L Random Vancomycin Hepatitis C Antibody Active Medications Generic Name Dose Route Start Last Admin Trade Name Freq PRN Reason Stop Dose Admin Albuterol/Ipratropium 1 amp 06/18/17 22:25 Duoneb - NEB Q4H PRN SHORTNESS OF BREATH Chlorhexidine Gluconate 1 applic 06/18/17 22:00 06/20/17 01:40 Hibiclens For Decolonization - TP 1 applic HS LANCE Administration Heparin Sodium (Porcine) 1,000 unit 06/19/17 10:00 Heparin - IVPUSH PRN PRN Heparin Heparin Sodium (Porcine) 5,000 unit 06/19/17 10:00 Heparin - IVPUSH PRN PRN Heparin HEPARIN SOD,PORK IN 0.45% NACL 25,000 units in 500 mls @ 20 mls/hr 06/19/17 10 :00 06/19/17 10:00 Heparin-1/2ns 25,000 Units/500 IVPB Not Given TITR LANCE Protocol 1,000 UNITS/HR Meropenem 500 mg in 10 mls @ 120 mls/hr 06/19/17 16:00 06/20/17 10:52 Merrem (Restricted To Id) - IVPUSH 120 mls/hr BID LANCE Administration Sodium Chloride 1,000 mls @ 100 mls/hr 06/20/17 12:15 06/20/17 12:52 Normal Saline - IV 100 mls/hr ASDIR LANCE Administration Norepinephrine Bitartrate 8, 500 mls @ 18.75 mls/hr 06/20/17 12:45 06/20/17 13:06 000 mcg/ Sodium Chloride IV 10 mcg/min TITR LANCE 37.5 mls/hr Protocol Titration 5 MCG/MIN Insulin Aspart 1 vial 06/20/17 07:00 06/20/17 11:11 Novolog Vial Sliding Scale - SQ 4 units ACHS LANCE Administration Protocol Mupirocin 1 applic 06/18/17 22:00 06/20/17 10:51 Bactroban Ointment (For Decolonization) - NS 06/23/17 21:59 1 applic BID LANCE Administration Ondansetron HCl 4 mg 06/19/17 16:35 06/20/17 11:06 Zofran Injection IVPB 4 mg Q6H PRN Administration NAUSEA ASSESSMENT/PLAN: The patient is a 52 year old female with a history of DM, afib, gastritis, cellulitis who was admitted for AMS secondary to nova with electrolyte derangement for urgent dialysis with associated hypotension. NEURO Patient is alert and oriented x3 No issues currently. -Will continue to monitor. CV #Septic Shock, with lactic acidosis and hypotension Patient currently requiring pressors for to maintain MAP >65. The patient is likely septic from her lower extremity wounds. - Will switch the patient to levophed and titrate as needed to maintain MAP >65 - Will continue to trend lactic acid - Will hold anti-htn home meds: cardizemm 30mg po QID RESP #Respiratory distress (Improved) The patient is currently off bipap and is resting comfortable. -Will continue to monitor. GI No Issues currently. Heme No issues currently. -Will continue to monitor h/h Renal #NOVA The patient's hyponatremia and hyperkalemia is no improved post dialysis with an improved EKG from admission. - Will switch the patient to NS maintenance fluids per Nephrology recs. - Will continue cuevas for UOP monitoring ID #[email or web address] Likely secondary to the patient's cellulitis and lower extremity wounds. ID has been consulted - Continue Meropenem IV daily - Patient to have debridement of the lower extremity wounds today. MSK No issues currently FEN/GI -Replete electrolytes PRN, will monitor PPX -Heparin drip on hold for OR debridement currently. DISPO: Continue ICU level of care. Visit type - Emergency Visit Emergency Visit: No - New Patient This patient is new to me today: Yes Date on this admission: 06/20/17 - Critical Care Critical Care patient: Yes Total Critical Care Time (in minutes): 35 Critical Care Statement: The care of this patient involved high complexity decision making to prevent further life threatening deterioration of the patient 's condition and/or to evaluate & treat vital organ system(s) failure or risk of failure.
[2017-06-20] MEDS ORDERED: MIDAZOLAM HCL 2 MG/2 ML SINGLE DOSE VIAL ONE (13:43)
[2017-06-20] MEDS ORDERED: PROPOFOL 20 ML ONE (13:53)
[2017-06-20] MEDS ORDERED: LIDOCAINE HCL/PF 2% SDV 5ML VIAL ONE (13:53)
--- NOTE | 2017-06-20 14:43 | OP ---
Operative Note - Note: Operative Date: 06/20/17 Pre-Operative Diagnosis: necrotic calf ulcers bilateral lower ext Operation: Excisional debridement bilateral calf ulcers skin, subcutaneous tissue, muscle. Findings: necrotic tissue Some pus found. Cx taken Post-Operative Diagnosis: Same as Pre-op Surgeon: Wesley Calderon Anesthesia: General Estimated Blood Loss (mls): 75 Operative Report Dictated: Yes
--- NOTE | 2017-06-20 14:57 | EKG ---
Test Reason : Blood Pressure : / mmHG Vent. Rate : 102 BPM Atrial Rate : 159 BPM P-R Int : 000 ms QRS Dur : 072 ms QT Int : 328 ms P-R-T Axes : 000 015 026 degrees QTc Int : 427 ms ATRIAL FIBRILLATION WITH RAPID VENTRICULAR RESPONSE LOW VOLTAGE QRS ABNORMAL ECG WHEN COMPARED WITH ECG OF 19-JUN-2017 13:56, ATRIAL FIBRILLATION HAS REPLACED SINUS RHYTHM VENT. RATE HAS INCREASED BY 34 BPM Confirmed by BROOKS GOMEZ, LYDIA ([id number]) on 06/20/2017 2:56:36 PM Referred By: Confirmed By:LYDIA GUY MD
[2017-06-20] MEDS ORDERED: ONDANSETRON 4 MG/2 ML VIAL IVPB PRN (15:01)
[2017-06-20] MEDS ORDERED: ALBUTEROL SO4 2.5/IPRATROPIUM 0.5 INH SOL 3 ML VIAL.NEB. NEB PRN (15:01)
--- NOTE | 2017-06-20 15:40 | PN ---
Progress Note, Physician History of Present Illness: Pt seen and examined at bedside. She is more awake and alert. Her mental status is markedly improved. - Current Medication List Current Medications: Active Medications Albuterol/Ipratropium (Duoneb -) 1 amp NEB Q4H PRN PRN Reason: SHORTNESS OF BREATH Chlorhexidine Gluconate (Hibiclens For Decolonization -) 1 applic TP HS LANCE Fentanyl (Sublimaze Injection -) 25 mcg IVPUSH [id number] PRN PRN Reason: PAIN-PACU ORDER X 4 DOSES ONLY Lactated Ringer's (Lactated Ringers Solution) 1,000 mls @ 75 mls/hr IV ASDIR LANCE Meropenem (Merrem (Restricted To Id) -) 500 mg in 10 mls @ 120 mls/hr IVPUSH BID LANCE Norepinephrine Bitartrate 8, (000 mcg/ Sodium Chloride) 500 mls @ 18.75 mls/hr IV TITR LANCE; 5 MCG/MIN PRN Reason: Protocol Sodium Chloride (Normal Saline -) 1,000 mls @ 100 mls/hr IV ASDIR LANCE Insulin Aspart (Novolog Vial Sliding Scale -) 1 vial SQ ACHS LANCE PRN Reason: Protocol Mupirocin (Bactroban Ointment (For Decolonization) -) 1 applic NS BID LANCE Stop: 06/23/17 21:59 Ondansetron HCl (Zofran Injection) 4 mg IVPB Q6H PRN PRN Reason: NAUSEA Ondansetron HCl (Zofran Injection) 4 mg IVPUSH Q6H PRN PRN Reason: NAUSEA AND/OR VOMITING - Objective Vital Signs: Vital Signs Temperature 99.3 F 06/20/17 10:00 Pulse Rate 90 06/20/17 13:06 Respiratory Rate 22 06/20/17 13:03 Blood Pressure 125/55 06/20/17 13:06 O2 Sat by Pulse Oximetry (%) 99 06/20/17 11:29 Constitutional: Yes: Calm Eyes: Yes: Conjunctiva Clear HENT: Yes: Atraumatic Neck: Yes: Supple Cardiovascular: Yes: S1, S2 Respiratory: Yes: CTA Bilaterally Gastrointestinal: Yes: Soft, Abdomen, Obese Genitourinary: Yes: Johnson Present Musculoskeletal: Yes: Muscle Weakness Edema: Yes Edema: LLE: 1+, RLE: 1+ Neurological: Yes: Oriented Psychiatric: Yes: Oriented Labs: CBC, BMP 06/20/17 06:12 06/20/17 06:12 INR, PTT INR 1.16 (0.82-1.09) H 06/18/17 20:30 - ....Imaging Chest X-ray: Report Reviewed Problem List - Problems (1) Hyperkalemia Code(s): E87.5 - HYPERKALEMIA (2) Ulcers of both lower extremities Code(s): L97.919 - NON-PRS CHRONIC ULC UNSP PRT OF R LOW LEG W UNSP SEVERITY; L97.929 - NON-PRS CHRONIC ULC UNSP PRT OF L LOW LEG W UNSP SEVERITY Qualifiers: Non-pressure ulcer stage: unspecified non-pressure ulcer stage Qualified Code(s): L97.919 - Non-pressure chronic ulcer of unspecified part of right lower leg with unspecified severity; L97.929 - Non-pressure chronic ulcer of unspecified part of left lower leg with unspecified severity; L97.929 - Non- pressure chronic ulcer of unspecified part of left lower leg with unspecified severity; L97.929 - Non-pressure chronic ulcer of unspecified part of left lower leg with unspecified severity; L97.929 - Non-pressure chronic ulcer of unspecified part of left lower leg with unspecified severity (3) Unable to ambulate Code(s): R26.2 - DIFFICULTY IN WALKING, NOT ELSEWHERE CLASSIFIED (4) NOVA (acute kidney injury) Code(s): N17.9 - ACUTE KIDNEY FAILURE, UNSPECIFIED (5) Acute renal failure Code(s): N17.9 - ACUTE KIDNEY FAILURE, UNSPECIFIED (6) Afib Code(s): I48.91 - UNSPECIFIED ATRIAL FIBRILLATION Assessment/Plan Current Medications Generic Name Dose Route Start Last Admin Trade Name Freq PRN Reason Stop Dose Admin Albuterol/Ipratropium 1 amp 06/20/17 15:01 Duoneb - NEB Q4H PRN SHORTNESS OF BREATH Chlorhexidine Gluconate 1 applic 06/20/17 22:00 Hibiclens For Decolonization - TP HS LANCE Fentanyl 25 mcg 06/20/17 15:01 Sublimaze Injection - IVPUSH [id number] PRN PAIN-PACU ORDER X 4 DOSES ONLY Lactated Ringer's 1,000 mls @ 75 mls/hr 06/20/17 15:01 Lactated Ringers Solution IV ASDIR [facility] Meropenem 500 mg in 10 mls @ 120 mls/hr 06/20/17 22:00 Merrem (Restricted To Id) - IVPUSH BID LANCE Norepinephrine Bitartrate 8, 500 mls @ 18.75 mls/hr 06/20/17 15:01 000 mcg/ Sodium Chloride IV TITR LANCE Protocol 5 MCG/MIN Sodium Chloride 1,000 mls @ 100 mls/hr 06/20/17 15:01 Normal Saline - IV ASDIR [facility] Insulin Aspart 1 vial 06/20/17 16:30 Novolog Vial Sliding Scale - SQ ACHS [facility] Protocol Mupirocin 1 applic 06/20/17 22:00 Bactroban Ointment (For Decolonization) - NS 06/23/17 21:59 BID LANCE Ondansetron HCl 4 mg 06/20/17 15:01 Zofran Injection IVPB Q6H PRN NAUSEA Ondansetron HCl 4 mg 06/20/17 15:01 Zofran Injection IVPUSH Q6H PRN NAUSEA AND/OR VOMITING Impression 1. NOVA 2. hyperkalemia with ECG changes 3. obesity 4. DM 5. a-fib 6. HTN 7. chronic lower extremity ulcers 8. gastritis 9. sepsis 10. hyponatremia Plan - cont with fluids and monitor urine output - repeat labs in am - will assess for HD - will removed HD catheter tomorrow - monitow wbc - monitor bp and maintain a MAP of 65 - sodium is stabilizing - vascular follow of for wound care - discussed with ICU team - neuro input appreciated Dr Epstein
[2017-06-20] MEDS ORDERED: HEPARIN NA (PORCINE) 5,000 UNITS/ML 1ML VIAL IVPUSH ONE ×2 (18:15)
[2017-06-20] MEDS ORDERED: HEPARIN NA (PORCINE) 5,000 UNITS/ML 1ML VIAL IVPUSH PRN ×5 (18:15→20:00)
[2017-06-20] MEDS: SODIUM CHLORIDE 1,000 ML IV SCH (18:25)
[2017-06-20] MEDS ORDERED: HEPARIN SOD,PORK IN 0.45% NACL 25,000 UNITS/500 ML INFUS.BAG IVPB SCH (18:30)
[2017-06-20] MEDS ORDERED: HEPARIN INFUSION - 500 ML IV SCH (20:00)
[2017-06-20] MEDS ORDERED: ACETAMINOPHEN 1000 MG/100 ML VIAL (NON FORMULARY) IVPB ONE (21:03)
[2017-06-20] MEDS ORDERED: HEPARIN NA (PORCINE) 5,000 UNITS/ML 1ML VIAL SQ SCH (22:00)
[2017-06-20 22:04] LABS: HEMATOCRIT 30.7 % (32.4-45.2); LYMPH % 2.9 % (8-40); MCH 26.9 pg (25.7-33.7); MCHC 32.6 g/dl (32.0-36.0); MEAN CELL VOLUME 82.6 fl (80-96); MEAN PLT VOLUME 8.1 fl (7.5-11.1); NEUT % 94.1 % (42.8-82.8); PLATELET COUNT 333 K/MM3 (134-434); RBC 3.72 M/mm3 (3.60-5.2); RDW 13.9 % (11.6-15.6); WHITE BLOOD COUNT 27.9 K/mm3 (4.0-10.0)
[2017-06-20] MEDS: HEPARIN SOD,PORK IN 0.45% NACL 25,000 UNITS/500 ML INFUS.BAG IVPB SCH (23:22)
[2017-06-21 00:11] LABS: HBSAG SCREEN Negative (Negative); HEP B CORE AB, TOT Negative (Negative)
[2017-06-21] MEDS: MEROPENEM 500 MG PUSH 500 MG/10 ML DISP.SYRIN IVPUSH SCH ×3 (00:13→21:34)
[2017-06-21] MEDS: INSULIN SLIDING SCALE (NOVOLOG) 1 VIAL SQ SCH ×5 (00:13→22:07)
[2017-06-21 06:12] LABS: HEMATOCRIT 30.9 % (32.4-45.2); HEMOGLOBIN 10.1 GM/dL (10.7-15.3); MCH 27.1 pg (25.7-33.7); MCHC 32.6 g/dl (32.0-36.0); MEAN CELL VOLUME 83.2 fl (80-96); MEAN PLT VOLUME 8.5 fl (7.5-11.1); PLATELET COUNT 358 K/MM3 (134-434); RBC 3.71 M/mm3 (3.60-5.2); RDW 13.9 % (11.6-15.6)
--- NOTE | 2017-06-21 08:47 | PN ---
Physical Exam: SUBJECTIVE: Patient seen and examined The patient is a 52 year old female with a history of DM, afib, gastritis, cellulitis who was admitted for AMS secondary to nova with electrolyte derangement for urgent dialysis with associated hypotension. The patient is complaining of pain to her lower extremities. Otherwise no acute events overnight. OBJECTIVE: Vital Signs Period Temp Pulse Resp BP Sys/Callahan Pulse Ox Last 24 Hr 98.6 F-99.5 F 80-106 15-23 66-133/5-84 91-100 GENERAL: The patient is awake, alert, and fully oriented, in no acute distress. HEAD: Normal with no signs of trauma. EYES: sclera anicteric, conjunctiva clear. No ptosis. ENT: oropharynx clear without exudates, moist mucous membranes. NECK: Trachea midline, full range of motion, supple. LUNGS: Breath sounds equal, clear to auscultation bilaterally, no wheezes, no crackles, no accessory muscle use. HEART: Regular rate and rhythm, S1, S2 without murmur, rub or gallop. ABDOMEN: Soft, nontender, nondistended, normoactive bowel sounds, no guarding, no rebound, no hepatosplenomegaly, no masses. EXTREMITIES: 2+ pulses, warm, well-perfused, 2+ edema. Lower extremity erythema and warmth with bilateral lower extremity wounds with dry dressings. NEUROLOGICAL: Normal speech, gait not observed. PSYCH: Normal mood, normal affect. SKIN: Warm, dry, normal turgor, no rashes or lesions noted Laboratory Results - last 24 hr 06/18/17 06/20/17 06/20/17 20:30 06:27 21:30 WBC 27.9 H RBC 3.72 Hgb 10.0 L Hct 30.7 L MCV 82.6 MCH 26.9 MCHC 32.6 RDW 13.9 Plt Count 333 MPV 8.1 Neutrophils % 94.1 H Lymphocytes % 2.9 L D Monocytes % 3.0 L Eosinophils % 0.0 D Basophils % 0.0 PTT (Actin FS) POC Glucometer 173.57001 Hepatitis A Ab Total Negative Hep Bs Antigen Negative Hep Bs Antibody Non reactive Hep B Core Total Ab Negative 06/20/17 06/21/17 06/21/17 21:30 05:35 05:35 WBC 27.0 H RBC 3.71 Hgb 10.1 L Hct 30.9 L MCV 83.2 MCH 27.1 MCHC 32.6 RDW 13.9 Plt Count 358 MPV 8.5 Neutrophils % No Result Required. Lymphocytes % No Result Required. Monocytes % Eosinophils % Basophils % PTT (Actin FS) 25.9 L 31.9 POC Glucometer Hepatitis A Ab Total Hep Bs Antigen Hep Bs Antibody Hep B Core Total Ab 06/21/17 06:01 WBC RBC Hgb Hct MCV MCH MCHC RDW Plt Count MPV Neutrophils % Lymphocytes % Monocytes % Eosinophils % Basophils % PTT (Actin FS) POC Glucometer [id number] Hepatitis A Ab Total Hep Bs Antigen Hep Bs Antibody Hep B Core Total Ab Active Medications Generic Name Dose Route Start Last Admin Trade Name Freq PRN Reason Stop Dose Admin Albuterol/Ipratropium 1 amp 06/20/17 15:01 Duoneb - NEB Q4H PRN SHORTNESS OF BREATH Chlorhexidine Gluconate 1 applic 06/20/17 22:00 06/20/17 23:24 Hibiclens For Decolonization - TP 1 applic HS LANCE Administration Fentanyl 25 mcg 06/20/17 15:01 Sublimaze Injection - IVPUSH [id number] PRN PAIN-PACU ORDER X 4 DOSES ONLY Heparin Sodium (Porcine) 1,000 unit 06/20/17 20:00 Heparin - IVPUSH PRN PRN Heparin Heparin Sodium (Porcine) 5,000 unit 06/20/17 20:00 Heparin - IVPUSH PRN PRN Heparin Meropenem 500 mg in 10 mls @ 120 mls/hr 06/20/17 22:00 06/21/17 00:13 Merrem (Restricted To Id) - IVPUSH 120 mls/hr BID LANCE Administration Norepinephrine Bitartrate 8, 500 mls @ 18.75 mls/hr 06/20/17 15:01 06/20/17 12:25 000 mcg/ Sodium Chloride IV 10 mcg/min TITR LANCE 37.5 mls/hr Protocol Administration 5 MCG/MIN Sodium Chloride 1,000 mls @ 100 mls/hr 06/20/17 15:01 06/20/17 18:25 Normal Saline - IV 100 mls/hr ASDIR LANCE Administration HEPARIN SOD,PORK IN 0.45% NACL 25,000 units in 500 mls @ 20 mls/hr 06/20/17 20 :00 06/20/17 23:22 Heparin-1/2ns 25,000 Units/500 IVPB 1,000 units/hr TITR LANCE 20 mls/hr Protocol Administration 1,000 UNITS/HR Insulin Aspart 1 vial 06/20/17 16:30 06/21/17 07:06 Novolog Vial Sliding Scale - SQ 2 units ACHS LANCE Administration Protocol Mupirocin 1 applic 06/20/17 22:00 06/20/17 23:23 Bactroban Ointment (For Decolonization) - NS 06/23/17 21:59 1 applic BID LANCE Administration Ondansetron HCl 4 mg 06/20/17 15:01 Zofran Injection IVPB Q6H PRN NAUSEA Ondansetron HCl 4 mg 06/20/17 15:01 Zofran Injection IVPUSH Q6H PRN NAUSEA AND/OR VOMITING ASSESSMENT/PLAN: The patient is a 52 year old female with a history of DM, afib, gastritis, cellulitis who was admitted for AMS secondary to nova with electrolyte derangement for urgent dialysis with associated hypotension. NEURO Patient is alert and oriented x3 No issues currently. -Will continue to monitor. CV #Septic Shock, with lactic acidosis and hypotension Patient currently requiring pressors for to maintain MAP >65. The patient is likely septic from her lower extremity wounds. - Will continue the patient to levophed and titrate as needed to maintain MAP > 65 with the attempt to wean off. - Will continue to trend lactic acid - Will hold anti-htn home meds: cardizemm 30mg po QID RESP #Respiratory distress (Improved) The patient is currently off bipap and is resting comfortable. -Will continue to monitor. GI No Issues currently. Heme No issues currently. -Will continue to monitor h/h Renal #NOVA The patient's hyponatremia and hyperkalemia is no improved post dialysis with an improved EKG from admission. - Will switch the patient to NS maintenance fluids per Nephrology recs. - Will continue cuevas for UOP monitoring ID #Sepsis Likely secondary to the patient's cellulitis and lower extremity wounds. ID has been consulted - Continue Meropenem IV daily - Patient had debridement of the lower extremity wounds yesterday. MSK No issues currently FEN/GI -Replete electrolytes PRN, will monitor PPX -Heparin DISPO: Continue ICU level of care. Visit type - Emergency Visit Emergency Visit: No - New Patient This patient is new to me today: No - Critical Care Critical Care patient: Yes Total Critical Care Time (in minutes): 35 Critical Care Statement: The care of this patient involved high complexity decision making to prevent further life threatening deterioration of the patient 's condition and/or to evaluate & treat vital organ system(s) failure or risk of failure.
[2017-06-21 09:06] LABS: ALBUMIN 1.9 g/dl (3.4-5.0); ALK PHOS 118 U/L (45-117); ANION GAP 12 (8-16); BILIRUBIN,TOTAL 0.3 mg/dL (0.2-1.0); BLOOD UREA NITROGEN 50 mg/dL (7-18); CALCIUM 8.8 mg/dL (8.5-10.1); CHLORIDE 99 mmol/L (98-107); CO2 23 mmol/L (21-32); CREATININE 1.4 mg/dL (0.55-1.02); GLUCOSE,RANDOM 152 mg/dL (74-106); MAGNESIUM 2.4 mg/dL (1.8-2.4); PHOSPHOROUS 3.9 mg/dL (2.5-4.9); POTASSIUM 3.9 mmol/L (3.5-5.1); SGOT/AST 10 U/L (15-37); SGPT/ALT 16 U/L (12-78); SODIUM 134 mmol/L (136-145); TOT PROT 5.8 g/dl (6.4-8.2)
[2017-06-21] MEDS ORDERED: PT OWN MED DRAWER 7, Y5N ONE ×3 (09:16→21:44)
--- NOTE | 2017-06-21 10:00 | PN ---
Progress Note, Physician - Current Medication List Current Medications: Active Medications Albuterol/Ipratropium (Duoneb -) 1 amp NEB Q4H PRN PRN Reason: SHORTNESS OF BREATH Chlorhexidine Gluconate (Hibiclens For Decolonization -) 1 applic TP HS LANCE Last Admin: 06/20/17 23:24 Dose: 1 applic Fentanyl (Sublimaze Injection -) 25 mcg IVPUSH [id number] PRN PRN Reason: PAIN-PACU ORDER X 4 DOSES ONLY Heparin Sodium (Porcine) (Heparin -) 1,000 unit IVPUSH PRN PRN PRN Reason: Heparin Heparin Sodium (Porcine) (Heparin -) 5,000 unit IVPUSH PRN PRN PRN Reason: Heparin Meropenem (Merrem (Restricted To Id) -) 500 mg in 10 mls @ 120 mls/hr IVPUSH BID [facility] Last Admin: 06/21/17 00:13 Dose: 120 mls/hr Norepinephrine Bitartrate 8, (000 mcg/ Sodium Chloride) 500 mls @ 18.75 mls/hr IV TITR LANCE; 5 MCG/MIN PRN Reason: Protocol Last Admin: 06/20/17 12:25 Dose: 10 mcg/min, 37.5 mls/hr Sodium Chloride (Normal Saline -) 1,000 mls @ 100 mls/hr IV ASDIR LANCE Last Admin: 06/20/17 18:25 Dose: 100 mls/hr HEPARIN SOD,PORK IN 0.45% NACL (Heparin-1/2ns 25,000 Units/500) 25,000 units in 500 mls @ 20 mls/hr IVPB TITR LANCE; 1,000 UNITS/HR PRN Reason: Protocol Last Admin: 06/20/17 23:22 Dose: 1,000 units/hr, 20 mls/hr Insulin Aspart (Novolog Vial Sliding Scale -) 1 vial SQ ACHS LANCE PRN Reason: Protocol Last Admin: 06/21/17 07:06 Dose: 2 units Mupirocin (Bactroban Ointment (For Decolonization) -) 1 applic NS BID [facility] Stop: 06/23/17 21:59 Last Admin: 06/20/17 23:23 Dose: 1 applic Ondansetron HCl (Zofran Injection) 4 mg IVPB Q6H PRN PRN Reason: NAUSEA Ondansetron HCl (Zofran Injection) 4 mg IVPUSH Q6H PRN PRN Reason: NAUSEA AND/OR VOMITING - Objective Vital Signs: Vital Signs Temperature 98.6 F 06/21/17 02:00 Pulse Rate 87 06/21/17 08:28 Respiratory Rate 18 06/21/17 06:00 Blood Pressure 116/83 06/21/17 06:00 O2 Sat by Pulse Oximetry (%) 94 L 06/21/17 08:28 Labs: CBC, BMP 06/21/17 05:35 06/21/17 05:35 INR, PTT INR 1.16 (0.82-1.09) H 06/18/17 20:30 Problem List - Problems (1) Sepsis Assessment/Plan: Severe Sepsis secondary to bilateral lower extremity wounds Given Aztronem 2gram in ED, Vanco 1 gram in ED Antibiotics renally dosed as per ID Renal and ID following Code(s): A41.9 - SEPSIS, UNSPECIFIED ORGANISM Qualifiers: Sepsis type: sepsis due to unspecified organism Qualified Code(s): A41.9 - Sepsis, unspecified organism (2) Altered mental status Assessment/Plan: Improved Metabolic encephalopaty secondary to sepsis and electrolyte imbalance CT scan Code(s): R41.82 - ALTERED MENTAL STATUS, UNSPECIFIED (3) Ulcers of both lower extremities Assessment/Plan: per surgery Code(s): L97.919 - NON-PRS CHRONIC ULC UNSP PRT OF R LOW LEG W UNSP SEVERITY; L97.929 - NON-PRS CHRONIC ULC UNSP PRT OF L LOW LEG W UNSP SEVERITY Qualifiers: Non-pressure ulcer stage: unspecified non-pressure ulcer stage Qualified Code(s): L97.919 - Non-pressure chronic ulcer of unspecified part of right lower leg with unspecified severity; L97.929 - Non-pressure chronic ulcer of unspecified part of left lower leg with unspecified severity; L97.929 - Non- pressure chronic ulcer of unspecified part of left lower leg with unspecified severity; L97.929 - Non-pressure chronic ulcer of unspecified part of left lower leg with unspecified severity; L97.929 - Non-pressure chronic ulcer of unspecified part of left lower leg with unspecified severity (4) Afib Assessment/Plan: on heparin Code(s): I48.91 - UNSPECIFIED ATRIAL FIBRILLATION (5) DM2 (diabetes mellitus, type 2) Assessment/Plan: [facility] Code(s): E11.9 - TYPE 2 DIABETES MELLITUS WITHOUT COMPLICATIONS Qualifiers: Diabetes mellitus complication detail: with other circulatory complications (6) Renal failure (ARF), acute on chronic Assessment/Plan: Monitor mental status, correct electrolytes ON ADMISION na 121, K. 8.5, bun 134, creat 5.6, gluc 236: given insulin, d50, kayexelate, saline, and calcium gluconate Monitor vitals, labs in the setting of sepsis Monitor electrolytes after dialysis hd per renal Code(s): N17.9 - ACUTE KIDNEY FAILURE, UNSPECIFIED; N18.9 - CHRONIC KIDNEY DISEASE, UNSPECIFIED
[2017-06-21] MEDS: MUPIROCIN 2% TOPICAL OINTMENT FOR DECOLONIZATION NS SCH ×2 (10:02→21:35)
[2017-06-21] MEDS: HEPARIN NA (PORCINE) 5,000 UNITS/ML 1ML VIAL IVPUSH PRN (10:04)
[2017-06-21] MEDS: SODIUM CHLORIDE 1,000 ML IV SCH ×2 (10:15→17:06)
--- NOTE | 2017-06-21 10:58 | PN ---
Progress Note (short form) - Note Progress Note: Anesthesiology post-op POD#1 s/p I+D. Pt. stable in ICU. Levophed being weaned. No apparent anesthesia- related issues. Continue management as per ICU team.
[2017-06-21] MEDS ORDERED: MORPHINE SULFATE 10 MG/1 ML *VIAL IVPUSH PRN (11:57)
--- NOTE | 2017-06-21 12:35 | PN ---
Teaching Attending Note Name of Resident: Eder Mullins ATTENDING PHYSICIAN STATEMENT I saw and evaluated the patient. I reviewed the resident's note and discussed the case with the resident. I agree with the resident's findings and plan as documented. SUBJECTIVE: Patient seen and examined in the ICU. Awake and alert. Remains on NE for hemodynamic support. Denies CP or SOB. Legs are uncomfortable/pain. POD # 1 from an Excisional debridement bilateral calf ulcers skin, subcutaneous tissue, muscle. OBJECTIVE: Intake & Output 06/18/17 06/19/17 06/20/17 06/21/17 23:59 23:59 23:59 23:59 Intake Total 1544 3954 920 Output Total 50 1400 3100 200 Balance -50 144 854 720 Weight 230 lb 119 lb 3.2 oz 257 lb 9 oz 261 lb 8 oz Last Vital Signs Temp Pulse Resp BP Pulse Ox 98.6 F 101 H 18 116/83 98 06/21/17 02:00 06/21/17 11:35 06/21/17 06:00 06/21/17 06:00 06/21/17 11:35 Active Medications Albuterol/Ipratropium (Duoneb -) 1 amp NEB Q4H PRN PRN Reason: SHORTNESS OF BREATH Budesonide/Formoterol Fumarate (Symbicort 80/4.5mcg -) 2 puff IH BID LANCE Chlorhexidine Gluconate (Hibiclens For Decolonization -) 1 applic TP HS LANCE Last Admin: 06/20/17 23:24 Dose: 1 applic Fentanyl (Sublimaze Injection -) 25 mcg IVPUSH [id number] PRN PRN Reason: PAIN-PACU ORDER X 4 DOSES ONLY Heparin Sodium (Porcine) (Heparin -) 1,000 unit IVPUSH PRN PRN PRN Reason: Heparin Heparin Sodium (Porcine) (Heparin -) 5,000 unit IVPUSH PRN PRN PRN Reason: Heparin Last Admin: 06/21/17 10:04 Dose: 5,000 unit Meropenem (Merrem (Restricted To Id) -) 500 mg in 10 mls @ 120 mls/hr IVPUSH BID LANCE Last Admin: 06/21/17 10:02 Dose: 120 mls/hr Norepinephrine Bitartrate 8, (000 mcg/ Sodium Chloride) 500 mls @ 18.75 mls/hr IV TITR LANCE; 5 MCG/MIN PRN Reason: Protocol Last Titration: 06/21/17 07:00 Dose: 6.66 mcg/min, 25 mls/hr Sodium Chloride (Normal Saline -) 1,000 mls @ 100 mls/hr IV ASDIR LANCE Last Admin: 06/21/17 10:15 Dose: 100 mls/hr HEPARIN SOD,PORK IN 0.45% NACL (Heparin-1/2ns 25,000 Units/500) 25,000 units in 500 mls @ 20 mls/hr IVPB TITR LANCE; 1,000 UNITS/HR PRN Reason: Protocol Last Titration: 06/21/17 10:04 Dose: 1,150 units/hr, 23 mls/hr Insulin Aspart (Novolog Vial Sliding Scale -) 1 vial SQ ACHS LANCE PRN Reason: Protocol Last Admin: 06/21/17 10:12 Dose: 4 units Morphine Sulfate (Morphine Injection -) 4 mg IVPUSH Q6H PRN PRN Reason: PAIN LEVEL 4 - 6 Mupirocin (Bactroban Ointment (For Decolonization) -) 1 applic NS BID [facility] Stop: 06/23/17 21:59 Last Admin: 06/21/17 10:02 Dose: 1 applic Ondansetron HCl (Zofran Injection) 4 mg IVPB Q6H PRN PRN Reason: NAUSEA Ondansetron HCl (Zofran Injection) 4 mg IVPUSH Q6H PRN PRN Reason: NAUSEA AND/OR VOMITING Tramadol HCl (Ultram -) 50 mg PO Q6H PRN PRN Reason: PAIN LEVEL 6-10 Gen: Awake alert, NAD Heart: RRR Lung: decreased breath sounds at the bases Abd: soft, nontender Ext: + edema, chronic changes, multiple ulcers LLE lateral purulent, RLE medial purulent Laboratory Results - last 24 hr 06/18/17 06/20/17 06/20/17 20:30 21:30 21:30 WBC 27.9 H RBC 3.72 Hgb 10.0 L Hct 30.7 L MCV 82.6 MCH 26.9 MCHC 32.6 RDW 13.9 Plt Count 333 MPV 8.1 Neutrophils % 94.1 H Lymphocytes % 2.9 L D Monocytes % 3.0 L Eosinophils % 0.0 D Basophils % 0.0 PTT (Actin FS) 25.9 L Sodium Potassium Chloride Carbon Dioxide Anion Gap BUN Creatinine Creat Clearance w eGFR POC Glucometer Random Glucose Calcium Phosphorus Magnesium Total Bilirubin AST ALT Alkaline Phosphatase Total Protein Albumin Hepatitis A Ab Total Negative Hep Bs Antigen Negative Hep Bs Antibody Non reactive Hep B Core Total Ab Negative 06/21/17 06/21/17 06/21/17 05:35 05:35 05:35 WBC 27.0 H RBC 3.71 Hgb 10.1 L Hct 30.9 L MCV 83.2 MCH 27.1 MCHC 32.6 RDW 13.9 Plt Count 358 MPV 8.5 Neutrophils % No Result Required. Lymphocytes % No Result Required. Monocytes % Eosinophils % Basophils % PTT (Actin FS) 31.9 Sodium 134 L Potassium 3.9 Chloride 99 Carbon Dioxide 23 Anion Gap 12 BUN 50 H Creatinine 1.4 H Creat Clearance w eGFR 39.19 POC Glucometer Random Glucose 152 H Calcium 8.8 Phosphorus 3.9 Magnesium 2.4 Total Bilirubin 0.3 D AST 10 L ALT 16 Alkaline Phosphatase 118 H Total Protein 5.8 L Albumin 1.9 L Hepatitis A Ab Total Hep Bs Antigen Hep Bs Antibody Hep B Core Total Ab 06/21/17 06/21/17 06:01 10:11 WBC RBC Hgb Hct MCV MCH MCHC RDW Plt Count MPV Neutrophils % Lymphocytes % Monocytes % Eosinophils % Basophils % PTT (Actin FS) Sodium Potassium Chloride Carbon Dioxide Anion Gap BUN Creatinine Creat Clearance w eGFR POC Glucometer 183.03774 215.00765 Random Glucose Calcium Phosphorus Magnesium Total Bilirubin AST ALT Alkaline Phosphatase Total Protein Albumin Hepatitis A Ab Total Hep Bs Antigen Hep Bs Antibody Hep B Core Total Ab ASSESSMENT AND PLAN: POD #1 Excisional debridement bilateral calf ulcers skin, subcutaneous tissue, muscle. Cellulitis R/O Leg Abscesses Septic Shock Acute on Chronic Renal Failure Lactic Acidosis Atrial Fibrillation Uncontrolled DM Hyponatremia - IV antibiotics - f/u cultures - Local wound care per surgery - O2 to keep SpO2 >90% - NIPPV as needed - IVF - monitor urine output, creatinine - Pressors to maintain MAP >65 - Aspiration precautions - PO as tolerated - DVT prophylaxis - continue ICU monitoring Dr Andre Critical care time spent in reviewing chart, evaluating patient and formulating plan 35 min
[2017-06-21 14:12] LABS: PLATELET ESTIMATE NORMAL
[2017-06-21] MEDS: BUDESONIDE/FORMETEROL FUMARATE 80/4.5 mcg INHALER IH SCH ×2 (14:34→21:34)
--- NOTE | 2017-06-21 15:42 | PN ---
Progress Note, Physician History of Present Illness: patient stable still with pain plan to debride the wound clinically remaining stable - Current Medication List Current Medications: Active Medications Albuterol/Ipratropium (Duoneb -) 1 amp NEB Q4H PRN PRN Reason: SHORTNESS OF BREATH Budesonide/Formoterol Fumarate (Symbicort 80/4.5mcg -) 2 puff IH BID [facility] Last Admin: 06/21/17 14:34 Dose: Not Given Chlorhexidine Gluconate (Hibiclens For Decolonization -) 1 applic TP HS [facility] Last Admin: 06/20/17 23:24 Dose: 1 applic Fentanyl (Sublimaze Injection -) 25 mcg IVPUSH [id number] PRN PRN Reason: PAIN-PACU ORDER X 4 DOSES ONLY Heparin Sodium (Porcine) (Heparin -) 1,000 unit IVPUSH PRN PRN PRN Reason: Heparin Heparin Sodium (Porcine) (Heparin -) 5,000 unit IVPUSH PRN PRN PRN Reason: Heparin Last Admin: 06/21/17 10:04 Dose: 5,000 unit Meropenem (Merrem (Restricted To Id) -) 500 mg in 10 mls @ 120 mls/hr IVPUSH BID [facility] Last Admin: 06/21/17 10:02 Dose: 120 mls/hr Norepinephrine Bitartrate 8, (000 mcg/ Sodium Chloride) 500 mls @ 18.75 mls/hr IV TITR LANCE; 5 MCG/MIN PRN Reason: Protocol Last Titration: 06/21/17 13:45 Dose: 8 mcg/min, 30 mls/hr Sodium Chloride (Normal Saline -) 1,000 mls @ 100 mls/hr IV ASDIR [facility] Last Admin: 06/21/17 10:15 Dose: 100 mls/hr HEPARIN SOD,PORK IN 0.45% NACL (Heparin-1/2ns 25,000 Units/500) 25,000 units in 500 mls @ 20 mls/hr IVPB TITR LANCE; 1,000 UNITS/HR PRN Reason: Protocol Last Titration: 06/21/17 10:04 Dose: 1,150 units/hr, 23 mls/hr Insulin Aspart (Novolog Vial Sliding Scale -) 1 vial SQ ACHS LANCE PRN Reason: Protocol Last Admin: 06/21/17 10:12 Dose: 4 units Morphine Sulfate (Morphine Injection -) 4 mg IVPUSH Q6H PRN PRN Reason: PAIN LEVEL 4 - 6 Mupirocin (Bactroban Ointment (For Decolonization) -) 1 applic NS BID LANCE Stop: 06/23/17 21:59 Last Admin: 06/21/17 10:02 Dose: 1 applic Ondansetron HCl (Zofran Injection) 4 mg IVPB Q6H PRN PRN Reason: NAUSEA Ondansetron HCl (Zofran Injection) 4 mg IVPUSH Q6H PRN PRN Reason: NAUSEA AND/OR VOMITING Tramadol HCl (Ultram -) 50 mg PO Q6H PRN PRN Reason: PAIN LEVEL 6-10 - Objective Vital Signs: Vital Signs Temperature 99.0 F 06/21/17 14:00 Pulse Rate 96 H 06/21/17 14:00 Respiratory Rate 25 H 06/21/17 14:00 Blood Pressure 126/77 06/21/17 14:00 O2 Sat by Pulse Oximetry (%) 95 06/21/17 14:31 Constitutional: Yes: Mild Distress, Obese Cardiovascular: Yes: Regular Rate and Rhythm Respiratory: Yes: Regular, Poor Air Entry (bases) Gastrointestinal: Yes: Normal Bowel Sounds, Soft Musculoskeletal: Yes: Other Extremities: Yes: Other Wound/Incision: Yes: Dressing Dry and Intact Neurological: Yes: Alert, Oriented Psychiatric: Yes: Alert, Oriented Labs: CBC, BMP 06/21/17 05:35 06/21/17 05:35 INR, PTT INR 1.16 (0.82-1.09) H 06/18/17 20:30 Assessment/Plan patient examined we removed the dressing and took cx from the wound patient has an abscess pocket on left post part of the leg whose cx are also send i know the cx from previous and i suspect she might have the same now Problem List - Problems (1) Hyperkalemia Code(s): E87.5 - HYPERKALEMIA (2) Ulcers of both lower extremities Code(s): L97.919 - NON-PRS CHRONIC ULC UNSP PRT OF R LOW LEG W UNSP SEVERITY; L97.929 - NON-PRS CHRONIC ULC UNSP PRT OF L LOW LEG W UNSP SEVERITY Qualifiers: Non-pressure ulcer stage: unspecified non-pressure ulcer stage Qualified Code(s): L97.919 - Non-pressure chronic ulcer of unspecified part of right lower leg with unspecified severity; L97.929 - Non-pressure chronic ulcer of unspecified part of left lower leg with unspecified severity; L97.929 - Non- pressure chronic ulcer of unspecified part of left lower leg with unspecified severity; L97.929 - Non-pressure chronic ulcer of unspecified part of left lower leg with unspecified severity; L97.929 - Non-pressure chronic ulcer of unspecified part of left lower leg with unspecified severity (3) Unable to ambulate Code(s): R26.2 - DIFFICULTY IN WALKING, NOT ELSEWHERE CLASSIFIED (4) NOVA (acute kidney injury) Code(s): N17.9 - ACUTE KIDNEY FAILURE, UNSPECIFIED (5) Acute renal failure Code(s): N17.9 - ACUTE KIDNEY FAILURE, UNSPECIFIED (6) Afib Code(s): I48.91 - UNSPECIFIED ATRIAL FIBRILLATION sepsis leukocytosis electrolyte abn plan continue abx await for or to debride continue resp support wiht bipap await for cx reports rest continue current mgmt cc 40 min
--- NOTE | 2017-06-21 15:49 | PN ---
Progress Note, Physician History of Present Illness: patient post debridement feels better breathing well no new issues - Current Medication List Current Medications: Active Medications Albuterol/Ipratropium (Duoneb -) 1 amp NEB Q4H PRN PRN Reason: SHORTNESS OF BREATH Budesonide/Formoterol Fumarate (Symbicort 80/4.5mcg -) 2 puff IH BID [facility] Last Admin: 06/21/17 14:34 Dose: Not Given Chlorhexidine Gluconate (Hibiclens For Decolonization -) 1 applic TP HS [facility] Last Admin: 06/20/17 23:24 Dose: 1 applic Fentanyl (Sublimaze Injection -) 25 mcg IVPUSH [id number] PRN PRN Reason: PAIN-PACU ORDER X 4 DOSES ONLY Heparin Sodium (Porcine) (Heparin -) 1,000 unit IVPUSH PRN PRN PRN Reason: Heparin Heparin Sodium (Porcine) (Heparin -) 5,000 unit IVPUSH PRN PRN PRN Reason: Heparin Last Admin: 06/21/17 10:04 Dose: 5,000 unit Meropenem (Merrem (Restricted To Id) -) 500 mg in 10 mls @ 120 mls/hr IVPUSH BID [facility] Last Admin: 06/21/17 10:02 Dose: 120 mls/hr Norepinephrine Bitartrate 8, (000 mcg/ Sodium Chloride) 500 mls @ 18.75 mls/hr IV TITR LANCE; 5 MCG/MIN PRN Reason: Protocol Last Titration: 06/21/17 13:45 Dose: 8 mcg/min, 30 mls/hr Sodium Chloride (Normal Saline -) 1,000 mls @ 100 mls/hr IV ASDIR [facility] Last Admin: 06/21/17 10:15 Dose: 100 mls/hr HEPARIN SOD,PORK IN 0.45% NACL (Heparin-1/2ns 25,000 Units/500) 25,000 units in 500 mls @ 20 mls/hr IVPB TITR LANCE; 1,000 UNITS/HR PRN Reason: Protocol Last Titration: 06/21/17 10:04 Dose: 1,150 units/hr, 23 mls/hr Vancomycin HCl 750 mg/ (Dextrose) 250 mls @ 250 mls/hr IVPB DAILY LANCE PRN Reason: Protocol Insulin Aspart (Novolog Vial Sliding Scale -) 1 vial SQ ACHS LANCE PRN Reason: Protocol Last Admin: 06/21/17 10:12 Dose: 4 units Morphine Sulfate (Morphine Injection -) 4 mg IVPUSH Q6H PRN PRN Reason: PAIN LEVEL 4 - 6 Mupirocin (Bactroban Ointment (For Decolonization) -) 1 applic NS BID [facility] Stop: 06/23/17 21:59 Last Admin: 06/21/17 10:02 Dose: 1 applic Ondansetron HCl (Zofran Injection) 4 mg IVPB Q6H PRN PRN Reason: NAUSEA Ondansetron HCl (Zofran Injection) 4 mg IVPUSH Q6H PRN PRN Reason: NAUSEA AND/OR VOMITING Tramadol HCl (Ultram -) 50 mg PO Q6H PRN PRN Reason: PAIN LEVEL 6-10 - Objective Vital Signs: Vital Signs Temperature 99.0 F 06/21/17 14:00 Pulse Rate 96 H 06/21/17 14:00 Respiratory Rate 25 H 06/21/17 14:00 Blood Pressure 126/77 06/21/17 14:00 O2 Sat by Pulse Oximetry (%) 95 06/21/17 14:31 Constitutional: Yes: No Distress, Calm, Obese Cardiovascular: Yes: Regular Rate and Rhythm Respiratory: Yes: Regular, CTA Bilaterally Gastrointestinal: Yes: Normal Bowel Sounds, Soft Musculoskeletal: Yes: Other Extremities: Yes: Other Wound/Incision: Yes: Dressing Dry and Intact Neurological: Yes: Alert, Oriented Psychiatric: Yes: Alert, Oriented Labs: CBC, BMP 06/21/17 05:35 06/21/17 05:35 INR, PTT INR 1.16 (0.82-1.09) H 06/18/17 20:30 Assessment/Plan patient examined we removed the dressing and took cx from the wound patient has an abscess pocket on left post part of the leg whose cx are also send i know the cx from previous and i suspect she might have the same now Problem List - Problems (1) Hyperkalemia Code(s): E87.5 - HYPERKALEMIA (2) Ulcers of both lower extremities Code(s): L97.919 - NON-PRS CHRONIC ULC UNSP PRT OF R LOW LEG W UNSP SEVERITY; L97.929 - NON-PRS CHRONIC ULC UNSP PRT OF L LOW LEG W UNSP SEVERITY Qualifiers: Non-pressure ulcer stage: unspecified non-pressure ulcer stage Qualified Code(s): L97.919 - Non-pressure chronic ulcer of unspecified part of right lower leg with unspecified severity; L97.929 - Non-pressure chronic ulcer of unspecified part of left lower leg with unspecified severity; L97.929 - Non- pressure chronic ulcer of unspecified part of left lower leg with unspecified severity; L97.929 - Non-pressure chronic ulcer of unspecified part of left lower leg with unspecified severity; L97.929 - Non-pressure chronic ulcer of unspecified part of left lower leg with unspecified severity (3) Unable to ambulate Code(s): R26.2 - DIFFICULTY IN WALKING, NOT ELSEWHERE CLASSIFIED (4) NOVA (acute kidney injury) Code(s): N17.9 - ACUTE KIDNEY FAILURE, UNSPECIFIED (5) Acute renal failure Code(s): N17.9 - ACUTE KIDNEY FAILURE, UNSPECIFIED (6) Afib Code(s): I48.91 - UNSPECIFIED ATRIAL FIBRILLATION sepsis leukocytosis electrolyte abn culture report noted plan' continue current mgmt await for sensitivities and identification of the bacteria will add vanco to the regimen wound care rest as per icu and primary team cc time 40 min
--- NOTE | 2017-06-21 15:55 | PN ---
Progress Note, Physician History of Present Illness: Pt seen and examined at bedside. She is awake and alert. She denies shortness of breath. - Current Medication List Current Medications: Active Medications Albuterol/Ipratropium (Duoneb -) 1 amp NEB Q4H PRN PRN Reason: SHORTNESS OF BREATH Budesonide/Formoterol Fumarate (Symbicort 80/4.5mcg -) 2 puff IH BID [facility] Last Admin: 06/21/17 14:34 Dose: Not Given Chlorhexidine Gluconate (Hibiclens For Decolonization -) 1 applic TP HS [facility] Last Admin: 06/20/17 23:24 Dose: 1 applic Fentanyl (Sublimaze Injection -) 25 mcg IVPUSH [id number] PRN PRN Reason: PAIN-PACU ORDER X 4 DOSES ONLY Heparin Sodium (Porcine) (Heparin -) 1,000 unit IVPUSH PRN PRN PRN Reason: Heparin Heparin Sodium (Porcine) (Heparin -) 5,000 unit IVPUSH PRN PRN PRN Reason: Heparin Last Admin: 06/21/17 10:04 Dose: 5,000 unit Meropenem (Merrem (Restricted To Id) -) 500 mg in 10 mls @ 120 mls/hr IVPUSH BID [facility] Last Admin: 06/21/17 10:02 Dose: 120 mls/hr Norepinephrine Bitartrate 8, (000 mcg/ Sodium Chloride) 500 mls @ 18.75 mls/hr IV TITR LANCE; 5 MCG/MIN PRN Reason: Protocol Last Titration: 06/21/17 13:45 Dose: 8 mcg/min, 30 mls/hr Sodium Chloride (Normal Saline -) 1,000 mls @ 100 mls/hr IV ASDIR [facility] Last Admin: 06/21/17 10:15 Dose: 100 mls/hr HEPARIN SOD,PORK IN 0.45% NACL (Heparin-1/2ns 25,000 Units/500) 25,000 units in 500 mls @ 20 mls/hr IVPB TITR LANCE; 1,000 UNITS/HR PRN Reason: Protocol Last Titration: 06/21/17 10:04 Dose: 1,150 units/hr, 23 mls/hr Vancomycin HCl 750 mg/ (Dextrose) 250 mls @ 250 mls/hr IVPB Q24H LANCE PRN Reason: Protocol Insulin Aspart (Novolog Vial Sliding Scale -) 1 vial SQ ACHS LANCE PRN Reason: Protocol Last Admin: 06/21/17 10:12 Dose: 4 units Morphine Sulfate (Morphine Injection -) 4 mg IVPUSH Q6H PRN PRN Reason: PAIN LEVEL 4 - 6 Mupirocin (Bactroban Ointment (For Decolonization) -) 1 applic NS BID [facility] Stop: 06/23/17 21:59 Last Admin: 06/21/17 10:02 Dose: 1 applic Ondansetron HCl (Zofran Injection) 4 mg IVPB Q6H PRN PRN Reason: NAUSEA Ondansetron HCl (Zofran Injection) 4 mg IVPUSH Q6H PRN PRN Reason: NAUSEA AND/OR VOMITING Tramadol HCl (Ultram -) 50 mg PO Q6H PRN PRN Reason: PAIN LEVEL 6-10 - Objective Vital Signs: Vital Signs Temperature 99.0 F 06/21/17 14:00 Pulse Rate 96 H 06/21/17 14:00 Respiratory Rate 25 H 06/21/17 14:00 Blood Pressure 126/77 06/21/17 14:00 O2 Sat by Pulse Oximetry (%) 95 06/21/17 14:31 Constitutional: Yes: Calm Eyes: Yes: Conjunctiva Clear HENT: Yes: Atraumatic Neck: Yes: Supple Cardiovascular: Yes: S1, S2 Respiratory: Yes: CTA Bilaterally Gastrointestinal: Yes: Soft, Abdomen, Obese Genitourinary: Yes: Johnson Present Musculoskeletal: Yes: Muscle Weakness Edema: Yes Edema: LLE: 1+, RLE: 1+ Wound/Incision: Yes: Dressing Dry and Intact Neurological: Yes: Oriented Psychiatric: Yes: Oriented Labs: CBC, BMP 06/21/17 05:35 06/21/17 05:35 INR, PTT INR 1.16 (0.82-1.09) H 06/18/17 20:30 Problem List - Problems (1) Hyperkalemia Code(s): E87.5 - HYPERKALEMIA (2) Ulcers of both lower extremities Code(s): L97.919 - NON-PRS CHRONIC ULC UNSP PRT OF R LOW LEG W UNSP SEVERITY; L97.929 - NON-PRS CHRONIC ULC UNSP PRT OF L LOW LEG W UNSP SEVERITY Qualifiers: Non-pressure ulcer stage: unspecified non-pressure ulcer stage Qualified Code(s): L97.919 - Non-pressure chronic ulcer of unspecified part of right lower leg with unspecified severity; L97.929 - Non-pressure chronic ulcer of unspecified part of left lower leg with unspecified severity; L97.929 - Non- pressure chronic ulcer of unspecified part of left lower leg with unspecified severity; L97.929 - Non-pressure chronic ulcer of unspecified part of left lower leg with unspecified severity; L97.929 - Non-pressure chronic ulcer of unspecified part of left lower leg with unspecified severity (3) Unable to ambulate Code(s): R26.2 - DIFFICULTY IN WALKING, NOT ELSEWHERE CLASSIFIED (4) NOVA (acute kidney injury) Code(s): N17.9 - ACUTE KIDNEY FAILURE, UNSPECIFIED (5) Acute renal failure Code(s): N17.9 - ACUTE KIDNEY FAILURE, UNSPECIFIED (6) Afib Code(s): I48.91 - UNSPECIFIED ATRIAL FIBRILLATION Assessment/Plan Current Medications Generic Name Dose Route Start Last Admin Trade Name Freq PRN Reason Stop Dose Admin Albuterol/Ipratropium 1 amp 06/20/17 15:01 Duoneb - NEB Q4H PRN SHORTNESS OF BREATH Budesonide/Formoterol Fumarate 2 puff 06/21/17 11:00 06/21/17 14:34 Symbicort 80/4.5mcg - IH Not Given BID [facility] Chlorhexidine Gluconate 1 applic 06/20/17 22:00 06/20/17 23:24 Hibiclens For Decolonization - TP 1 applic HS [facility] Administration Fentanyl 25 mcg 06/20/17 15:01 Sublimaze Injection - IVPUSH [id number] PRN PAIN-PACU ORDER X 4 DOSES ONLY Heparin Sodium (Porcine) 1,000 unit 06/20/17 20:00 Heparin - IVPUSH PRN PRN Heparin Heparin Sodium (Porcine) 5,000 unit 06/20/17 20:00 06/21/17 10:04 Heparin - IVPUSH 5,000 unit PRN PRN Administration Heparin Meropenem 500 mg in 10 mls @ 120 mls/hr 06/20/17 22:00 06/21/17 10:02 Merrem (Restricted To Id) - IVPUSH 120 mls/hr BID [facility] Administration Norepinephrine Bitartrate 8, 500 mls @ 18.75 mls/hr 06/20/17 15:01 06/21/17 13:45 000 mcg/ Sodium Chloride IV 8 mcg/min TITR LANCE 30 mls/hr Protocol Titration 5 MCG/MIN Sodium Chloride 1,000 mls @ 100 mls/hr 06/20/17 15:01 06/21/17 10:15 Normal Saline - IV 100 mls/hr ASDIR [facility] Administration HEPARIN SOD,PORK IN 0.45% NACL 25,000 units in 500 mls @ 20 mls/hr 06/20/17 20 :00 06/21/17 10:04 Heparin-1/2ns 25,000 Units/500 IVPB 1,150 units/hr TITR LANCE 23 mls/hr Protocol Titration 1,000 UNITS/HR Vancomycin HCl 750 mg/ 250 mls @ 250 mls/hr 06/21/17 16:00 Dextrose IVPB Q24H LANCE Protocol Insulin Aspart 1 vial 06/20/17 16:30 06/21/17 10:12 Novolog Vial Sliding Scale - SQ 4 units ACHS LANCE Administration Protocol Morphine Sulfate 4 mg 06/21/17 11:57 Morphine Injection - IVPUSH Q6H PRN PAIN LEVEL 4 - 6 Mupirocin 1 applic 06/20/17 22:00 06/21/17 10:02 Bactroban Ointment (For Decolonization) - NS 06/23/17 21:59 1 applic BID [facility] Administration Ondansetron HCl 4 mg 06/20/17 15:01 Zofran Injection IVPB Q6H PRN NAUSEA Ondansetron HCl 4 mg 06/20/17 15:01 Zofran Injection IVPUSH Q6H PRN NAUSEA AND/OR VOMITING Tramadol HCl 50 mg 06/21/17 10:01 Ultram - PO Q6H PRN PAIN LEVEL 6-10 Impression 1. NOVA 2. hyperkalemia with ECG changes 3. obesity 4. DM 5. a-fib 6. HTN 7. chronic lower extremity ulcers 8. gastritis 9. sepsis 10. hyponatremia Plan - remove HD catheter - can keep on fluids, can switch to NS - repeat labs in am - NOVA is resolving, will not need more HD - cont abx - monitor wbc - avoid nsaids, pt was taking nsaids heavily before admission - monitor lytes - taper off pressors to map of 65 - pts blood pressure is improving - discussed with ICU team - check vanco level Dr Epstein
[2017-06-21] MEDS: NOREPINEPHRINE BITARTRATE 8,000 MCG in SODIUM CHLORIDE 492 ML IV SCH (17:06)
[2017-06-21] MEDS ORDERED: VASOPRESSIN 20 UNITS/ML VIAL IV ONE (17:11)
[2017-06-21] MEDS: VANCOMYCIN 750 MG in DEXTROSE 5%-WATER - 250 ML IVPB SCH (17:16)
[2017-06-21] MEDS: traMADol HCL 50 MG TABLET PO PRN (17:17)
[2017-06-21] MEDS: HEPARIN SOD,PORK IN 0.45% NACL 25,000 UNITS/500 ML INFUS.BAG IVPB SCH (20:00)
[2017-06-21] MEDS: CHLORHEXIDINE GLUCONATE 4% CLEANSER FOR DECOLONIZATION TP SCH (21:35)
[2017-06-21] MEDS ORDERED: SODIUM CHLORIDE 0.9% 1000 ML INFUS.BAG IV ONE (22:08)
[2017-06-21] MEDS ORDERED: AMIODARONE HCL 150 MG/3 ML VIAL IVPUSH ONE (22:41)
[2017-06-21] MEDS ORDERED: AMIODARONE HCL 150 MG/3 ML VIAL ONE (22:46)
[2017-06-22] MEDS ORDERED: VASOPRESSIN 20 UNITS/ML VIAL IV ONE ×2 (01:09→15:09)
--- NOTE | 2017-06-22 01:14 | PROC ---
Procedure Note Procedure: Rt IJ TLC placement Rt IJ TLC was placed for monitoring and med infusion. Prepped with chlorhexadine. Under sterile field, 20G TLC placed by seldinger technique in rt IJ to 16cm. Pt tolerated procedure well. CXR shows line in place and no pneumothorax. . Lt Fem trialysis cath d/c'd. Heparin for A-fib restarted.
[2017-06-22] MEDS ORDERED: NOREPINEPHRINE BITARTRATE 4 MG/4 ML ML IV ONE ×2 (01:53→19:27)
[2017-06-22] MEDS: traMADol HCL 50 MG TABLET PO PRN ×2 (02:11→16:37)
[2017-06-22] MEDS: VASOPRESSIN 50 UNITS in SODIUM CHLORIDE 97.5 ML IVPB SCH ×2 (02:12→16:30)
[2017-06-22] MEDS: HEPARIN NA (PORCINE) 5,000 UNITS/ML 1ML VIAL IVPUSH PRN ×2 (02:17→09:11)
[2017-06-22 06:28] LABS: EOS % 1.3 % (0-4.5); HEMATOCRIT 27.9 % (32.4-45.2); HEMOGLOBIN 9.1 GM/dL (10.7-15.3); LYMPH % 1.4 % (8-40); MCH 27.4 pg (25.7-33.7); MCHC 32.6 g/dl (32.0-36.0); MEAN PLT VOLUME 8.5 fl (7.5-11.1); MONO % 2.1 % (3.8-10.2); NEUT % 95.2 % (42.8-82.8); PLATELET COUNT 319 K/MM3 (134-434); RBC 3.32 M/mm3 (3.60-5.2); RDW 14.1 % (11.6-15.6); WHITE BLOOD COUNT 27.8 K/mm3 (4.0-10.0)
[2017-06-22] MEDS: INSULIN SLIDING SCALE (NOVOLOG) 1 VIAL SQ SCH ×4 (06:30→21:53)
[2017-06-22 06:52] LABS: ALBUMIN 1.5 g/dl (3.4-5.0); ANION GAP 11 (8-16); BILIRUBIN,TOTAL 0.3 mg/dL (0.2-1.0); BLOOD UREA NITROGEN 36 mg/dL (7-18); CALCIUM 7.4 mg/dL (8.5-10.1); CHLORIDE 102 mmol/L (98-107); CO2 21 mmol/L (21-32); CREATININE 1.2 mg/dL (0.55-1.02); GLUCOSE,RANDOM 207 mg/dL (74-106); MAGNESIUM 1.5 mg/dL (1.8-2.4); PHOSPHOROUS 2.5 mg/dL (2.5-4.9); POTASSIUM 3.9 mmol/L (3.5-5.1); SGOT/AST 9 U/L (15-37); SGPT/ALT 18 U/L (12-78); SODIUM 134 mmol/L (136-145); TOT PROT 4.8 g/dl (6.4-8.2)
[2017-06-22 07:00] LABS: ALK PHOS 96 U/L (45-117)
[2017-06-22] MEDS: HEPARIN SOD,PORK IN 0.45% NACL 25,000 UNITS/500 ML INFUS.BAG IVPB SCH ×3 (09:05→20:00)
[2017-06-22] MEDS ORDERED: PT OWN MED DRAWER 7, Y5N ONE ×2 (09:09→16:27)
[2017-06-22] MEDS: MEROPENEM 500 MG PUSH 500 MG/10 ML DISP.SYRIN IVPUSH SCH ×2 (09:12→21:46)
[2017-06-22] MEDS: MUPIROCIN 2% TOPICAL OINTMENT FOR DECOLONIZATION NS SCH ×2 (09:16→21:46)
[2017-06-22] MEDS: BUDESONIDE/FORMETEROL FUMARATE 80/4.5 mcg INHALER IH SCH ×2 (09:24→23:20)
--- NOTE | 2017-06-22 10:18 | PN ---
Progress Note (short form) - Note Progress Note: PULM/CCM Pt Seen & examined in the ICU. Pt is CA+OX3, denies any SOB, remains on low dose pressors, c/o dry eyes, & requesting a mechanical soft diet, legs are wrapped, notice toes w/ gangrene. Active Medications Albuterol/Ipratropium (Duoneb -) 1 amp NEB Q4H PRN PRN Reason: SHORTNESS OF BREATH Budesonide/Formoterol Fumarate (Symbicort 80/4.5mcg -) 2 puff IH BID [facility] Last Admin: 06/22/17 09:24 Dose: 2 puff Chlorhexidine Gluconate (Hibiclens For Decolonization -) 1 applic TP HS [facility] Last Admin: 06/21/17 21:35 Dose: 1 applic Fentanyl (Sublimaze Injection -) 25 mcg IVPUSH [id number] PRN PRN Reason: PAIN-PACU ORDER X 4 DOSES ONLY Heparin Sodium (Porcine) (Heparin -) 1,000 unit IVPUSH PRN PRN PRN Reason: Heparin Last Admin: 06/22/17 16:30 Dose: 1,000 unit Heparin Sodium (Porcine) (Heparin -) 5,000 unit IVPUSH PRN PRN PRN Reason: Heparin Last Admin: 06/22/17 09:11 Dose: 5,000 unit Meropenem (Merrem (Restricted To Id) -) 500 mg in 10 mls @ 120 mls/hr IVPUSH BID [facility] Last Admin: 06/22/17 09:12 Dose: 120 mls/hr Norepinephrine Bitartrate 8, (000 mcg/ Sodium Chloride) 500 mls @ 18.75 mls/hr IV TITR LANCE; 5 MCG/MIN PRN Reason: Protocol Last Admin: 06/22/17 16:38 Dose: Not Given Sodium Chloride (Normal Saline -) 1,000 mls @ 100 mls/hr IV ASDIR [facility] Last Admin: 06/21/17 17:06 Dose: Not Given HEPARIN SOD,PORK IN 0.45% NACL (Heparin-1/2ns 25,000 Units/500) 25,000 units in 500 mls @ 20 mls/hr IVPB TITR LANCE; 1,000 UNITS/HR PRN Reason: Protocol Last Admin: 06/22/17 16:30 Dose: 1,550 units/hr, 31 mls/hr Vancomycin HCl 750 mg/ (Dextrose) 250 mls @ 250 mls/hr IVPB Q24H LANCE PRN Reason: Protocol Last Admin: 06/22/17 16:29 Dose: 250 mls/hr Vasopressin 50 units/ Sodium (Chloride) 100 mls @ 4.8 mls/hr IVPB ASDIR [facility]; 2.4 UNITS/HR PRN Reason: Protocol Last Admin: 06/22/17 16:30 Dose: 4 units/hr, 8 mls/hr Insulin Aspart (Novolog Vial Sliding Scale -) 1 vial SQ ACHS LANCE PRN Reason: Protocol Last Admin: 06/22/17 17:30 Dose: 6 units Insulin Detemir (Levemir Vial) 20 units SQ AM LANCE Insulin Detemir (Levemir Vial) 10 units SQ HS LANCE Morphine Sulfate (Morphine Injection -) 4 mg IVPUSH Q6H PRN PRN Reason: PAIN LEVEL 4 - 6 Mupirocin (Bactroban Ointment (For Decolonization) -) 1 applic NS BID [facility] Stop: 06/23/17 21:59 Last Admin: 06/22/17 09:16 Dose: 1 applic Ondansetron HCl (Zofran Injection) 4 mg IVPB Q6H PRN PRN Reason: NAUSEA Ondansetron HCl (Zofran Injection) 4 mg IVPUSH Q6H PRN PRN Reason: NAUSEA AND/OR VOMITING Tramadol HCl (Ultram -) 50 mg PO Q6H PRN PRN Reason: PAIN LEVEL 6-10 Last Admin: 06/22/17 16:37 Dose: 50 mg V/S Period Temp Pulse Resp BP Sys/Callahan Pulse Ox Last 24 Hr 99.7 F-100.2 F 76-133 12- 75-120/42-78 94-98 Intake & Output 06/19/17 06/20/17 06/21/17 06/22/17 23:59 23:59 23:59 23:59 Intake Total 1544 3954 3075 3399 Output Total 1400 3100 1000 300 Balance 904 153 0405 3099 Weight 54.068 kg 116.828 kg 118.614 kg 121.608 kg GEN: Morbidly obese middle aged woman in bed, NAD HEENT: PERRL, an-icteric, MMM PULM: CTAB CV: nml S1 S2, RR, unable to appreciate any G/M/R ABD: Obese, + BS, S/S N/T N/D X4Q CBC, BMP 06/22/17 06:10 06/22/17 06:10 MICRO 06/19/17 14:50 Leg - Left Lower Gram Stain - Final 06/19/17 14:50 Leg - Left Lower Wound Culture - Final Klebsiella Oxytoca Enterococcus Faecalis 06/18/17 15:00 Blood - Peripheral Venous Blood Culture - Preliminary NO GROWTH OBTAINED AFTER 96 HOURS, INCUBATION TO CONTINUE FOR 1 DAYS. 06/18/17 15:00 Blood - Peripheral Venous Blood Culture - Preliminary NO GROWTH OBTAINED AFTER 96 HOURS, INCUBATION TO CONTINUE FOR 1 DAYS. 06/19/17 15:10 Abscess Gram Stain - Final 06/19/17 01:14 Urine - Urine Johnson Urine Culture - Final NO GROWTH OBTAINED RECENT STUDIES TO NOTE: CXR 06/22: Since 125 20/10 at 0718 hours, a new right jugular line is been inserted and the tip is at the junction of the SVC and right atrium. There is a slightly widened mediastinum with congestive changes. There is no sign of a pneumothorax. Follow-up recommended. Impression: New right line and no pneumothorax. ASSESS: This is a 52 y/o morbidly obese woman, IDDM, A-Fib on Eliquis, & gastritis, admitted on 06/18 for sepsis 2/2 worsening chronic lower ext venous stasis ulcers & cellulitis. PLAN: -Supp Fio2 prsn for an SpO2 > 92% -Nebs -Symbicort -CPT -IS -Wean Pressors as tolerated -Cont Vanc -F/u Vanc Levels -Cont Nita -Elevate LEs -LE care a/p Sx -FSs -Cont novolog SS -levemir 20U q AM -levemir 10U HS -ENDO -Stict I's & O's -Monitor UOP -Trend BUN/Cr -Replete e-lytes prn -Renal Dose all -HD a/p RENAL -Cont Heparin gtt (A-Fib) -BR -Decolonize skin -PPI DGL, ACNP-BC [facility] ICU PULM / CCM [id number] Critical Care Total Critical Care Time (in minutes): 40 Critical Care Statement: The care of this patient involved high complexity decision making to prevent further life threatening deterioration of the patient 's condition and/or to evaluate & treat vital organ system(s) failure or risk of failure.
--- NOTE | 2017-06-22 11:09 | PN ---
Progress Note (short form) - Note Progress Note: RENAL Pt awake and alert comfortable has a cuevas and is making urine Last Vital Signs Temp Pulse Resp BP Pulse Ox 99.7 F H 89 22 105/71 98 06/22/17 10:22 06/22/17 10:22 06/22/17 10:22 06/22/17 10:22 06/22/17 09:12 lungs clear cvs s1s2 rr abd soft ext +edema neuro a+ox3 can have a conversation CBC, BMP 06/22/17 06:10 06/22/17 06:10 Current Medications Generic Name Dose Route Start Last Admin Trade Name Freq PRN Reason Stop Dose Admin Albuterol/Ipratropium 1 amp 06/20/17 15:01 Duoneb - NEB Q4H PRN SHORTNESS OF BREATH Budesonide/Formoterol Fumarate 2 puff 06/21/17 11:00 06/22/17 09:24 Symbicort 80/4.5mcg - IH 2 puff BID [facility] Administration Chlorhexidine Gluconate 1 applic 06/20/17 22:00 06/21/17 21:35 Hibiclens For Decolonization - TP 1 applic HS [facility] Administration Fentanyl 25 mcg 06/20/17 15:01 Sublimaze Injection - IVPUSH [id number] PRN PAIN-PACU ORDER X 4 DOSES ONLY Heparin Sodium (Porcine) 1,000 unit 06/20/17 20:00 Heparin - IVPUSH PRN PRN Heparin Heparin Sodium (Porcine) 5,000 unit 06/20/17 20:00 06/22/17 09:11 Heparin - IVPUSH 5,000 unit PRN PRN Administration Heparin Meropenem 500 mg in 10 mls @ 120 mls/hr 06/20/17 22:00 06/22/17 09:12 Merrem (Restricted To Id) - IVPUSH 120 mls/hr BID LANCE Administration Norepinephrine Bitartrate 8, 500 mls @ 18.75 mls/hr 06/20/17 15:01 06/22/17 08:30 000 mcg/ Sodium Chloride IV 4 mcg/min TITR LANCE 15 mls/hr Protocol Titration 5 MCG/MIN Sodium Chloride 1,000 mls @ 100 mls/hr 06/20/17 15:01 06/21/17 17:06 Normal Saline - IV Not Given ASDIR [facility]ANCE HEPARIN SOD,PORK IN 0.45% NACL 25,000 units in 500 mls @ 20 mls/hr 06/20/17 20 :00 06/22/17 09:01 Heparin-1/2ns 25,000 Units/500 IVPB 1,450 units/hr TITR LANCE 29 mls/hr Protocol Titration 1,000 UNITS/HR Vancomycin HCl 750 mg/ 250 mls @ 250 mls/hr 06/21/17 16:00 06/21/17 17:16 Dextrose IVPB 250 mls/hr Q24H LANCE Administration Protocol Vasopressin 50 units/ Sodium 100 mls @ 4.8 mls/hr 06/22/17 01:15 06/22/17 06: 00 Chloride IVPB 4 units/hr ASDIR LANCE 8 mls/hr Protocol Titration 2.4 UNITS/HR Insulin Aspart 1 vial 06/20/17 16:30 06/22/17 06:30 Novolog Vial Sliding Scale - SQ 4 units ACHS LANCE Administration Protocol Morphine Sulfate 4 mg 06/21/17 11:57 Morphine Injection - IVPUSH Q6H PRN PAIN LEVEL 4 - 6 Mupirocin 1 applic 06/20/17 22:00 06/22/17 09:16 Bactroban Ointment (For Decolonization) - NS 06/23/17 21:59 1 applic BID LANCE Administration Ondansetron HCl 4 mg 06/20/17 15:01 Zofran Injection IVPB Q6H PRN NAUSEA Ondansetron HCl 4 mg 06/20/17 15:01 Zofran Injection IVPUSH Q6H PRN NAUSEA AND/OR VOMITING Tramadol HCl 50 mg 06/21/17 10:01 06/22/17 02:11 Ultram - PO 50 mg Q6H PRN Administration PAIN LEVEL 6-10 IMPRESSION 1. NOVA 2. hyperkalemia with ECG changes 3. obesity 4. DM 5. a-fib 6. HTN 7. chronic lower extremity ulcers 8. gastritis 9. sepsis 10. hyponatremia Plan -if continues to eat dc fluids altogeteher - repeat labs in am - no hd necessary - cont abx - monitor wbc - avoid nsaids, pt was taking nsaids heavily before admission - monitor lytes - taper off pressors to map of 65 MV
--- NOTE | 2017-06-22 11:55 | PN ---
Progress Note, Physician History of Present Illness: doing much better complaining of dry eyes - Current Medication List Current Medications: Active Medications Albuterol/Ipratropium (Duoneb -) 1 amp NEB Q4H PRN PRN Reason: SHORTNESS OF BREATH Budesonide/Formoterol Fumarate (Symbicort 80/4.5mcg -) 2 puff IH BID [facility] Last Admin: 06/22/17 09:24 Dose: 2 puff Chlorhexidine Gluconate (Hibiclens For Decolonization -) 1 applic TP HS [facility] Last Admin: 06/21/17 21:35 Dose: 1 applic Fentanyl (Sublimaze Injection -) 25 mcg IVPUSH [id number] PRN PRN Reason: PAIN-PACU ORDER X 4 DOSES ONLY Heparin Sodium (Porcine) (Heparin -) 1,000 unit IVPUSH PRN PRN PRN Reason: Heparin Heparin Sodium (Porcine) (Heparin -) 5,000 unit IVPUSH PRN PRN PRN Reason: Heparin Last Admin: 06/22/17 09:11 Dose: 5,000 unit Meropenem (Merrem (Restricted To Id) -) 500 mg in 10 mls @ 120 mls/hr IVPUSH BID [facility] Last Admin: 06/22/17 09:12 Dose: 120 mls/hr Norepinephrine Bitartrate 8, (000 mcg/ Sodium Chloride) 500 mls @ 18.75 mls/hr IV TITR [facility]; 5 MCG/MIN PRN Reason: Protocol Last Titration: 06/22/17 08:30 Dose: 4 mcg/min, 15 mls/hr Sodium Chloride (Normal Saline -) 1,000 mls @ 100 mls/hr IV ASDIR [facility] Last Admin: 06/21/17 17:06 Dose: Not Given HEPARIN SOD,PORK IN 0.45% NACL (Heparin-1/2ns 25,000 Units/500) 25,000 units in 500 mls @ 20 mls/hr IVPB TITR [facility]; 1,000 UNITS/HR PRN Reason: Protocol Last Admin: 06/22/17 11:45 Dose: 1,600 units/hr, 32 mls/hr Vancomycin HCl 750 mg/ (Dextrose) 250 mls @ 250 mls/hr IVPB Q24H [facility] PRN Reason: Protocol Last Admin: 06/21/17 17:16 Dose: 250 mls/hr Vasopressin 50 units/ Sodium (Chloride) 100 mls @ 4.8 mls/hr IVPB ASDIR [facility]; 2.4 UNITS/HR PRN Reason: Protocol Last Titration: 06/22/17 06:00 Dose: 4 units/hr, 8 mls/hr Insulin Aspart (Novolog Vial Sliding Scale -) 1 vial SQ ACHS [facility] PRN Reason: Protocol Last Admin: 06/22/17 06:30 Dose: 4 units Morphine Sulfate (Morphine Injection -) 4 mg IVPUSH Q6H PRN PRN Reason: PAIN LEVEL 4 - 6 Mupirocin (Bactroban Ointment (For Decolonization) -) 1 applic NS BID [facility] Stop: 06/23/17 21:59 Last Admin: 06/22/17 09:16 Dose: 1 applic Ondansetron HCl (Zofran Injection) 4 mg IVPB Q6H PRN PRN Reason: NAUSEA Ondansetron HCl (Zofran Injection) 4 mg IVPUSH Q6H PRN PRN Reason: NAUSEA AND/OR VOMITING Tramadol HCl (Ultram -) 50 mg PO Q6H PRN PRN Reason: PAIN LEVEL 6-10 Last Admin: 06/22/17 02:11 Dose: 50 mg - Objective Vital Signs: Vital Signs Temperature 99.7 F H 06/22/17 10:00 Pulse Rate 92 H 06/22/17 11:25 Respiratory Rate 2 L 06/22/17 11:25 Blood Pressure 116/72 06/22/17 11:25 O2 Sat by Pulse Oximetry (%) 98 06/22/17 09:12 Constitutional: Yes: Calm, Mild Distress, Obese Eyes: Yes: Conjunctiva Clear Neck: Yes: Supple Cardiovascular: Yes: Regular Rate and Rhythm Respiratory: Yes: Regular, Poor Air Entry (bases) Gastrointestinal: Yes: Normal Bowel Sounds, Soft Musculoskeletal: Yes: WNL Extremities: Yes: Other Wound/Incision: Yes: Dressing Dry and Intact Neurological: Yes: Alert, Oriented Psychiatric: Yes: Alert Labs: CBC, BMP 06/22/17 06:10 06/22/17 06:10 INR, PTT INR 1.16 (0.82-1.09) H 06/18/17 20:30 Assessment/Plan Problem List - Problems (1) Hyperkalemia Code(s): E87.5 - HYPERKALEMIA (2) Ulcers of both lower extremities Code(s): L97.919 - NON-PRS CHRONIC ULC UNSP PRT OF R LOW LEG W UNSP SEVERITY; L97.929 - NON-PRS CHRONIC ULC UNSP PRT OF L LOW LEG W UNSP SEVERITY Qualifiers: Non-pressure ulcer stage: unspecified non-pressure ulcer stage Qualified Code(s): L97.919 - Non-pressure chronic ulcer of unspecified part of right lower leg with unspecified severity; L97.929 - Non-pressure chronic ulcer of unspecified part of left lower leg with unspecified severity; L97.929 - Non- pressure chronic ulcer of unspecified part of left lower leg with unspecified severity; L97.929 - Non-pressure chronic ulcer of unspecified part of left lower leg with unspecified severity; L97.929 - Non-pressure chronic ulcer of unspecified part of left lower leg with unspecified severity (3) Unable to ambulate Code(s): R26.2 - DIFFICULTY IN WALKING, NOT ELSEWHERE CLASSIFIED (4) NOVA (acute kidney injury) Code(s): N17.9 - ACUTE KIDNEY FAILURE, UNSPECIFIED (5) Acute renal failure Code(s): N17.9 - ACUTE KIDNEY FAILURE, UNSPECIFIED (6) Afib Code(s): I48.91 - UNSPECIFIED ATRIAL FIBRILLATION sepsis leukocytosis electrolyte abn culture report noted plan' continue current mgmt will check vanco levels continue dressing cx result noted elevation of the leg cc time 40 min
--- NOTE | 2017-06-22 12:10 | EKG ---
Test Reason : Blood Pressure : / mmHG Vent. Rate : 121 BPM Atrial Rate : 136 BPM P-R Int : 000 ms QRS Dur : 070 ms QT Int : 302 ms P-R-T Axes : 000 021 -31 degrees QTc Int : 428 ms ATRIAL FIBRILLATION WITH RAPID VENTRICULAR RESPONSE ABNORMAL ECG WHEN COMPARED WITH ECG OF 20-JUN-2017 10:11, NONSPECIFIC T WAVE ABNORMALITY NOW EVIDENT IN ANTERIOR LEADS Confirmed by MD JACK, SOHAIL ([id number]) on 06/22/2017 12:10:12 PM Referred By: Confirmed By:SOHAIL SANTIAGO MD
--- NOTE | 2017-06-22 12:45 | PN ---
Progress Note, Physician - Current Medication List Current Medications: Active Medications Albuterol/Ipratropium (Duoneb -) 1 amp NEB Q4H PRN PRN Reason: SHORTNESS OF BREATH Budesonide/Formoterol Fumarate (Symbicort 80/4.5mcg -) 2 puff IH BID [facility] Last Admin: 06/22/17 09:24 Dose: 2 puff Chlorhexidine Gluconate (Hibiclens For Decolonization -) 1 applic TP HS [facility] Last Admin: 06/21/17 21:35 Dose: 1 applic Fentanyl (Sublimaze Injection -) 25 mcg IVPUSH [id number] PRN PRN Reason: PAIN-PACU ORDER X 4 DOSES ONLY Heparin Sodium (Porcine) (Heparin -) 1,000 unit IVPUSH PRN PRN PRN Reason: Heparin Heparin Sodium (Porcine) (Heparin -) 5,000 unit IVPUSH PRN PRN PRN Reason: Heparin Last Admin: 06/22/17 09:11 Dose: 5,000 unit Meropenem (Merrem (Restricted To Id) -) 500 mg in 10 mls @ 120 mls/hr IVPUSH BID [facility] Last Admin: 06/22/17 09:12 Dose: 120 mls/hr Norepinephrine Bitartrate 8, (000 mcg/ Sodium Chloride) 500 mls @ 18.75 mls/hr IV TITR [facility]; 5 MCG/MIN PRN Reason: Protocol Last Titration: 06/22/17 08:30 Dose: 4 mcg/min, 15 mls/hr Sodium Chloride (Normal Saline -) 1,000 mls @ 100 mls/hr IV ASDIR [facility] Last Admin: 06/21/17 17:06 Dose: Not Given HEPARIN SOD,PORK IN 0.45% NACL (Heparin-1/2ns 25,000 Units/500) 25,000 units in 500 mls @ 20 mls/hr IVPB TITR [facility]; 1,000 UNITS/HR PRN Reason: Protocol Last Admin: 06/22/17 11:45 Dose: 1,600 units/hr, 32 mls/hr Vancomycin HCl 750 mg/ (Dextrose) 250 mls @ 250 mls/hr IVPB Q24H [facility] PRN Reason: Protocol Last Admin: 06/21/17 17:16 Dose: 250 mls/hr Vasopressin 50 units/ Sodium (Chloride) 100 mls @ 4.8 mls/hr IVPB ASDIR [facility]; 2.4 UNITS/HR PRN Reason: Protocol Last Titration: 06/22/17 06:00 Dose: 4 units/hr, 8 mls/hr Insulin Aspart (Novolog Vial Sliding Scale -) 1 vial SQ ACHS [facility] PRN Reason: Protocol Last Admin: 06/22/17 06:30 Dose: 4 units Morphine Sulfate (Morphine Injection -) 4 mg IVPUSH Q6H PRN PRN Reason: PAIN LEVEL 4 - 6 Mupirocin (Bactroban Ointment (For Decolonization) -) 1 applic NS BID [facility] Stop: 06/23/17 21:59 Last Admin: 06/22/17 09:16 Dose: 1 applic Ondansetron HCl (Zofran Injection) 4 mg IVPB Q6H PRN PRN Reason: NAUSEA Ondansetron HCl (Zofran Injection) 4 mg IVPUSH Q6H PRN PRN Reason: NAUSEA AND/OR VOMITING Tramadol HCl (Ultram -) 50 mg PO Q6H PRN PRN Reason: PAIN LEVEL 6-10 Last Admin: 06/22/17 02:11 Dose: 50 mg - Objective Vital Signs: Vital Signs Temperature 99.7 F H 06/22/17 10:00 Pulse Rate 92 H 06/22/17 12:00 Respiratory Rate 2 L 06/22/17 12:00 Blood Pressure 116/72 06/22/17 12:00 O2 Sat by Pulse Oximetry (%) 98 06/22/17 09:12 Cardiovascular: Yes: S1, S2 Respiratory: Yes: Regular, CTA Bilaterally Gastrointestinal: Yes: Normal Bowel Sounds, Soft Labs: CBC, BMP 06/22/17 06:10 06/22/17 06:10 INR, PTT INR 1.16 (0.82-1.09) H 06/18/17 20:30 Problem List - Problems (1) Sepsis Assessment/Plan: Severe Sepsis secondary to bilateral lower extremity wounds Given Aztronem 2gram in ED, Vanco 1 gram in ED Antibiotics renally dosed as per ID Renal and ID following Code(s): A41.9 - SEPSIS, UNSPECIFIED ORGANISM Qualifiers: Sepsis type: sepsis due to unspecified organism Qualified Code(s): A41.9 - Sepsis, unspecified organism (2) Altered mental status Assessment/Plan: Improved Metabolic encephalopaty secondary to sepsis and electrolyte imbalance CT scan Code(s): R41.82 - ALTERED MENTAL STATUS, UNSPECIFIED (3) Ulcers of both lower extremities Assessment/Plan: per surgery Code(s): L97.919 - NON-PRS CHRONIC ULC UNSP PRT OF R LOW LEG W UNSP SEVERITY; L97.929 - NON-PRS CHRONIC ULC UNSP PRT OF L LOW LEG W UNSP SEVERITY Qualifiers: Non-pressure ulcer stage: unspecified non-pressure ulcer stage Qualified Code(s): L97.919 - Non-pressure chronic ulcer of unspecified part of right lower leg with unspecified severity; L97.929 - Non-pressure chronic ulcer of unspecified part of left lower leg with unspecified severity; L97.929 - Non- pressure chronic ulcer of unspecified part of left lower leg with unspecified severity; L97.929 - Non-pressure chronic ulcer of unspecified part of left lower leg with unspecified severity; L97.929 - Non-pressure chronic ulcer of unspecified part of left lower leg with unspecified severity (4) Afib Assessment/Plan: on heparin Code(s): I48.91 - UNSPECIFIED ATRIAL FIBRILLATION (5) DM2 (diabetes mellitus, type 2) Assessment/Plan: [facility] Code(s): E11.9 - TYPE 2 DIABETES MELLITUS WITHOUT COMPLICATIONS Qualifiers: Diabetes mellitus complication detail: with other circulatory complications (6) Renal failure (ARF), acute on chronic Assessment/Plan: Monitor mental status, correct electrolytes ON ADMISION na 121, K. 8.5, bun 134, creat 5.6, gluc 236: given insulin, d50, kayexelate, saline, and calcium gluconate IMPROVED Laboratory Tests 06/22/17 06:10 Sodium 134 L Potassium 3.9 BUN 36 H Creatinine 1.2 H Monitor vitals, labs in the setting of sepsis Monitor electrolytes after dialysis hd per renal Code(s): N17.9 - ACUTE KIDNEY FAILURE, UNSPECIFIED; N18.9 - CHRONIC KIDNEY DISEASE, UNSPECIFIED
[2017-06-22] MEDS: VANCOMYCIN 750 MG in DEXTROSE 5%-WATER - 250 ML IVPB SCH (16:29)
[2017-06-22] MEDS: NOREPINEPHRINE BITARTRATE 8,000 MCG in SODIUM CHLORIDE 492 ML IV SCH (16:38)
--- NOTE | 2017-06-22 18:56 | PN ---
Progress Note, Physician Chief Complaint: improving breathing better,sugars elevated History of Present Illness: dm,htn,diabetic leg infection,sepsis,wound infection - Current Medication List Current Medications: Active Medications Albuterol/Ipratropium (Duoneb -) 1 amp NEB Q4H PRN PRN Reason: SHORTNESS OF BREATH Budesonide/Formoterol Fumarate (Symbicort 80/4.5mcg -) 2 puff IH BID [facility] Last Admin: 06/22/17 09:24 Dose: 2 puff Chlorhexidine Gluconate (Hibiclens For Decolonization -) 1 applic TP HS [facility] Last Admin: 06/21/17 21:35 Dose: 1 applic Fentanyl (Sublimaze Injection -) 25 mcg IVPUSH [id number] PRN PRN Reason: PAIN-PACU ORDER X 4 DOSES ONLY Heparin Sodium (Porcine) (Heparin -) 1,000 unit IVPUSH PRN PRN PRN Reason: Heparin Last Admin: 06/22/17 16:30 Dose: 1,000 unit Heparin Sodium (Porcine) (Heparin -) 5,000 unit IVPUSH PRN PRN PRN Reason: Heparin Last Admin: 06/22/17 09:11 Dose: 5,000 unit Meropenem (Merrem (Restricted To Id) -) 500 mg in 10 mls @ 120 mls/hr IVPUSH BID [facility] Last Admin: 06/22/17 09:12 Dose: 120 mls/hr Norepinephrine Bitartrate 8, (000 mcg/ Sodium Chloride) 500 mls @ 18.75 mls/hr IV TITR [facility]; 5 MCG/MIN PRN Reason: Protocol Last Admin: 06/22/17 16:38 Dose: Not Given Sodium Chloride (Normal Saline -) 1,000 mls @ 100 mls/hr IV ASDIR [facility] Last Admin: 06/21/17 17:06 Dose: Not Given HEPARIN SOD,PORK IN 0.45% NACL (Heparin-1/2ns 25,000 Units/500) 25,000 units in 500 mls @ 20 mls/hr IVPB TITR [facility]; 1,000 UNITS/HR PRN Reason: Protocol Last Admin: 06/22/17 16:30 Dose: 1,550 units/hr, 31 mls/hr Vancomycin HCl 750 mg/ (Dextrose) 250 mls @ 250 mls/hr IVPB Q24H [facility] PRN Reason: Protocol Last Admin: 06/22/17 16:29 Dose: 250 mls/hr Vasopressin 50 units/ Sodium (Chloride) 100 mls @ 4.8 mls/hr IVPB ASDIR [facility]; 2.4 UNITS/HR PRN Reason: Protocol Last Admin: 06/22/17 16:30 Dose: 4 units/hr, 8 mls/hr Insulin Aspart (Novolog Vial Sliding Scale -) 1 vial SQ ACHS [facility] PRN Reason: Protocol Last Admin: 06/22/17 17:30 Dose: 6 units Morphine Sulfate (Morphine Injection -) 4 mg IVPUSH Q6H PRN PRN Reason: PAIN LEVEL 4 - 6 Mupirocin (Bactroban Ointment (For Decolonization) -) 1 applic NS BID [facility] Stop: 06/23/17 21:59 Last Admin: 06/22/17 09:16 Dose: 1 applic Ondansetron HCl (Zofran Injection) 4 mg IVPB Q6H PRN PRN Reason: NAUSEA Ondansetron HCl (Zofran Injection) 4 mg IVPUSH Q6H PRN PRN Reason: NAUSEA AND/OR VOMITING Tramadol HCl (Ultram -) 50 mg PO Q6H PRN PRN Reason: PAIN LEVEL 6-10 Last Admin: 06/22/17 16:37 Dose: 50 mg - Objective Vital Signs: Vital Signs Temperature 99.9 F H 06/22/17 14:00 Pulse Rate 76 06/22/17 16:30 Respiratory Rate 22 06/22/17 16:00 Blood Pressure 109/55 06/22/17 16:30 O2 Sat by Pulse Oximetry (%) 98 06/22/17 09:12 Constitutional: Yes: Well Nourished Eyes: Yes: EOM Intact HENT: Yes: Normocephalic Neck: Yes: Trachea Midline Cardiovascular: Yes: Regular Rate and Rhythm Respiratory: Yes: CTA Bilaterally Gastrointestinal: Yes: Normal Bowel Sounds ...Rectal Exam: Yes: Deferred Genitourinary: Yes: WNL Breast(s): Yes: WNL Edema: No Peripheral Pulses WNL: Yes Integumentary: Yes: Venous Stasis Changes Wound/Incision: Yes: Draining Neurological: Yes: Alert, Oriented Labs: CBC, BMP 06/22/17 06:10 06/22/17 06:10 INR, PTT INR 1.16 (0.82-1.09) H 06/18/17 20:30 Assessment/Plan Current Active Problems Altered mental status (Acute) Hyperkalemia (Acute) Renal failure (ARF), acute on chronic (Acute) Ulcers of both lower extremities (Acute) Unable to ambulate (Acute) Venous stasis (Acute) Laboratory Results - last 24 hr 06/21/17 06/22/17 06/22/17 20:45 06:10 06:10 WBC 27.8 H RBC 3.32 L Hgb 9.1 L Hct 27.9 L MCV 84.0 MCH 27.4 MCHC 32.6 RDW 14.1 Plt Count 319 MPV 8.5 Neutrophils % 95.2 H Lymphocytes % 1.4 L D Monocytes % 2.1 L Eosinophils % 1.3 D Basophils % 0.0 PTT (Actin FS) 29.5 34.2 Sodium Potassium Chloride Carbon Dioxide Anion Gap BUN Creatinine Creat Clearance w eGFR Random Glucose Calcium Phosphorus Magnesium Total Bilirubin AST ALT Alkaline Phosphatase Total Protein Albumin TSH 06/22/17 06/22/17 06:10 15:25 WBC RBC Hgb Hct MCV MCH MCHC RDW Plt Count MPV Neutrophils % Lymphocytes % Monocytes % Eosinophils % Basophils % PTT (Actin FS) 47.4 H D Sodium 134 L Potassium 3.9 Chloride 102 Carbon Dioxide 21 Anion Gap 11 BUN 36 H Creatinine 1.2 H Creat Clearance w eGFR 46.82 Random Glucose 207 H Calcium 7.4 L Phosphorus 2.5 Magnesium 1.5 L Total Bilirubin 0.3 AST 9 L ALT 18 Alkaline Phosphatase 96 Total Protein 4.8 L Albumin 1.5 L TSH 0.56 Laboratory Tests 06/18/17 06/18/17 06/18/17 14:30 20:30 23:40 POC Glucometer Random Glucose 236 H 306 H* 156 H 06/19/17 06/20/17 06/20/17 06:35 11:10 18:28 POC Glucometer 250.50107 276.93038 Random Glucose 205 H 06/20/17 06/21/17 06/21/17 23:06 06:01 10:11 POC Glucometer 323.10948 183.94469 215.66300 Random Glucose plan:\ novolog sliding scale levemir 20 units am levemir 10 units hs
[2017-06-22] MEDS: ARTIFICIAL TEARS (POLYVINYL ALCOHOL 1.4%) OPTH DROPS OU SCH (21:45)
[2017-06-22] MEDS: CHLORHEXIDINE GLUCONATE 4% CLEANSER FOR DECOLONIZATION TP SCH (21:46)
[2017-06-22] MEDS: INSULIN DETEMIR 100 UNITS/ML MDV SQ SCH (21:53)
[2017-06-23] MEDS ORDERED: VASOPRESSIN 20 UNITS/ML VIAL IV ONE ×2 (01:06→19:25)
[2017-06-23] MEDS: VASOPRESSIN 50 UNITS in SODIUM CHLORIDE 97.5 ML IVPB SCH (01:15)
[2017-06-23] MEDS: ARTIFICIAL TEARS (POLYVINYL ALCOHOL 1.4%) OPTH DROPS OU SCH ×3 (05:07→21:48)
[2017-06-23] MEDS: SODIUM CHLORIDE 1,000 ML IV SCH ×2 (05:07→21:47)
[2017-06-23] MEDS ORDERED: PT OWN MED DRAWER 7, Y5N ONE ×4 (06:01→21:23)
[2017-06-23] MEDS: INSULIN SLIDING SCALE (NOVOLOG) 1 VIAL SQ SCH ×4 (06:04→21:52)
[2017-06-23 06:38] LABS: BASO % 0.4 % (0-2.0); EOS % 4.3 % (0-4.5); HEMOGLOBIN 7.7 GM/dL (10.7-15.3); LYMPH % 4.1 % (8-40); MCH 27.1 pg (25.7-33.7); MCHC 32.1 g/dl (32.0-36.0); MEAN CELL VOLUME 84.3 fl (80-96); MONO % 3.8 % (3.8-10.2); NEUT % 87.4 % (42.8-82.8); PLATELET COUNT 216 K/MM3 (134-434); RBC 2.84 M/mm3 (3.60-5.2); RDW 13.9 % (11.6-15.6); WHITE BLOOD COUNT 11.3 K/mm3 (4.0-10.0)
[2017-06-23] MEDS ORDERED: INSULIN DETEMIR 100 UNITS/ML MDV SQ SCH (07:00)
[2017-06-23 07:11] LABS: CHLORIDE 105 mmol/L (98-107); POTASSIUM 3.5 mmol/L (3.5-5.1); SODIUM 138 mmol/L (136-145)
[2017-06-23 07:18] LABS: ALBUMIN 1.5 g/dl (3.4-5.0); ALK PHOS 73 U/L (45-117); ANION GAP 10 (8-16); BILIRUBIN,TOTAL 0.2 mg/dL (0.2-1.0); BLOOD UREA NITROGEN 28 mg/dL (7-18); CALCIUM 7.7 mg/dL (8.5-10.1); CO2 23 mmol/L (21-32); CREATININE 0.8 mg/dL (0.55-1.02); GLUCOSE,RANDOM 164 mg/dL (74-106); SGOT/AST 12 U/L (15-37); SGPT/ALT 20 U/L (12-78); TOT PROT 4.6 g/dl (6.4-8.2)
[2017-06-23] MEDS: MUPIROCIN 2% TOPICAL OINTMENT FOR DECOLONIZATION NS SCH (10:00)
--- NOTE | 2017-06-23 10:08 | PN ---
Progress Note, Physician History of Present Illness: more comfortable today - Current Medication List Current Medications: Active Medications Albuterol/Ipratropium (Duoneb -) 1 amp NEB Q4H PRN PRN Reason: SHORTNESS OF BREATH Artificial Tears (Artificial Tears) 1 drop OU TID [facility] Last Admin: 06/23/17 05:07 Dose: 1 drop Budesonide/Formoterol Fumarate (Symbicort 80/4.5mcg -) 2 puff IH BID [facility] Last Admin: 06/22/17 23:20 Dose: 2 puff Chlorhexidine Gluconate (Hibiclens For Decolonization -) 1 applic TP HS [facility] Last Admin: 06/22/17 21:46 Dose: 1 applic Fentanyl (Sublimaze Injection -) 25 mcg IVPUSH [id number] PRN PRN Reason: PAIN-PACU ORDER X 4 DOSES ONLY Heparin Sodium (Porcine) (Heparin -) 1,000 unit IVPUSH PRN PRN PRN Reason: Heparin Last Admin: 06/22/17 16:30 Dose: 1,000 unit Heparin Sodium (Porcine) (Heparin -) 5,000 unit IVPUSH PRN PRN PRN Reason: Heparin Last Admin: 06/22/17 09:11 Dose: 5,000 unit Meropenem (Merrem (Restricted To Id) -) 500 mg in 10 mls @ 120 mls/hr IVPUSH BID [facility] Last Admin: 06/22/17 21:46 Dose: 120 mls/hr Norepinephrine Bitartrate 8, (000 mcg/ Sodium Chloride) 500 mls @ 18.75 mls/hr IV TITR LANCE; 5 MCG/MIN PRN Reason: Protocol Last Titration: 06/23/17 06:00 Dose: 7 mcg/min, 26.25 mls/hr Sodium Chloride (Normal Saline -) 1,000 mls @ 100 mls/hr IV ASDIR [facility] Last Admin: 06/23/17 05:07 Dose: 100 mls/hr HEPARIN SOD,PORK IN 0.45% NACL (Heparin-1/2ns 25,000 Units/500) 25,000 units in 500 mls @ 20 mls/hr IVPB TITR [facility]; 1,000 UNITS/HR PRN Reason: Protocol Last Admin: 06/22/17 20:00 Dose: 1,550 units/hr, 31 mls/hr Vancomycin HCl 750 mg/ (Dextrose) 250 mls @ 250 mls/hr IVPB Q24H [facility] PRN Reason: Protocol Last Admin: 06/22/17 16:29 Dose: 250 mls/hr Vasopressin 50 units/ Sodium (Chloride) 100 mls @ 4.8 mls/hr IVPB ASDIR [facility]; 2.4 UNITS/HR PRN Reason: Protocol Last Titration: 06/23/17 07:03 Dose: 4 units/hr, 8 mls/hr Insulin Aspart (Novolog Vial Sliding Scale -) 1 vial SQ ACHS [facility] PRN Reason: Protocol Last Admin: 06/23/17 06:04 Dose: 2 units Insulin Detemir (Levemir Vial) 20 units SQ AM [facility] Last Admin: 06/23/17 06:04 Dose: 20 units Insulin Detemir (Levemir Vial) 10 units SQ HS [facility] Last Admin: 06/22/17 21:53 Dose: 10 units Morphine Sulfate (Morphine Injection -) 4 mg IVPUSH Q6H PRN PRN Reason: PAIN LEVEL 4 - 6 Mupirocin (Bactroban Ointment (For Decolonization) -) 1 applic NS BID [facility] Stop: 06/23/17 21:59 Last Admin: 06/22/17 21:46 Dose: 1 applic Ondansetron HCl (Zofran Injection) 4 mg IVPB Q6H PRN PRN Reason: NAUSEA Ondansetron HCl (Zofran Injection) 4 mg IVPUSH Q6H PRN PRN Reason: NAUSEA AND/OR VOMITING Tramadol HCl (Ultram -) 50 mg PO Q6H PRN PRN Reason: PAIN LEVEL 6-10 Last Admin: 06/22/17 16:37 Dose: 50 mg - Objective Vital Signs: Vital Signs Temperature 98.9 F 06/23/17 06:00 Pulse Rate 94 H 06/23/17 08:00 Respiratory Rate 22 06/23/17 08:00 Blood Pressure 99/63 06/23/17 08:00 O2 Sat by Pulse Oximetry (%) 98 06/22/17 21:00 Cardiovascular: Yes: S1, S2 Respiratory: Yes: Regular, CTA Bilaterally Gastrointestinal: Yes: Normal Bowel Sounds, Soft Labs: CBC, BMP 06/23/17 06:15 06/23/17 06:15 INR, PTT INR 1.16 (0.82-1.09) H 06/18/17 20:30 Problem List - Problems (1) Sepsis Code(s): A41.9 - SEPSIS, UNSPECIFIED ORGANISM Qualifiers: Sepsis type: sepsis due to unspecified organism Qualified Code(s): A41.9 - Sepsis, unspecified organism (2) Altered mental status Code(s): R41.82 - ALTERED MENTAL STATUS, UNSPECIFIED (3) Ulcers of both lower extremities Code(s): L97.919 - NON-PRS CHRONIC ULC UNSP PRT OF R LOW LEG W UNSP SEVERITY; L97.929 - NON-PRS CHRONIC ULC UNSP PRT OF L LOW LEG W UNSP SEVERITY Qualifiers: Non-pressure ulcer stage: unspecified non-pressure ulcer stage Qualified Code(s): L97.919 - Non-pressure chronic ulcer of unspecified part of right lower leg with unspecified severity; L97.929 - Non-pressure chronic ulcer of unspecified part of left lower leg with unspecified severity; L97.929 - Non- pressure chronic ulcer of unspecified part of left lower leg with unspecified severity; L97.929 - Non-pressure chronic ulcer of unspecified part of left lower leg with unspecified severity; L97.929 - Non-pressure chronic ulcer of unspecified part of left lower leg with unspecified severity (4) Afib Code(s): I48.91 - UNSPECIFIED ATRIAL FIBRILLATION (5) DM2 (diabetes mellitus, type 2) Code(s): E11.9 - TYPE 2 DIABETES MELLITUS WITHOUT COMPLICATIONS Qualifiers: Diabetes mellitus complication detail: with other circulatory complications (6) Renal failure (ARF), acute on chronic Code(s): N17.9 - ACUTE KIDNEY FAILURE, UNSPECIFIED; N18.9 - CHRONIC KIDNEY DISEASE, UNSPECIFIED Assessment/Plan - Problems (1) Leukocytosis Assessment/Plan: ID on board on iv abx culture sent Code(s): D72.829 - ELEVATED WHITE BLOOD CELL COUNT, UNSPECIFIED (2) Ulcers of both lower extremities Assessment/Plan: seen by vascular possible debridement iv abx wound care per surgery Code(s): L97.919 - NON-PRS CHRONIC ULC UNSP PRT OF R LOW LEG W UNSP SEVERITY; L97.929 - NON-PRS CHRONIC ULC UNSP PRT OF L LOW LEG W UNSP SEVERITY Qualifiers: Non-pressure ulcer stage: unspecified non-pressure ulcer stage Qualified Code(s): L97.919 - Non-pressure chronic ulcer of unspecified part of right lower leg with unspecified severity; L97.929 - Non-pressure chronic ulcer of unspecified part of left lower leg with unspecified severity; L97.929 - Non- pressure chronic ulcer of unspecified part of left lower leg with unspecified severity; L97.929 - Non-pressure chronic ulcer of unspecified part of left lower leg with unspecified severity; L97.929 - Non-pressure chronic ulcer of unspecified part of left lower leg with unspecified severity (3) Hyperkalemia Assessment/Plan: improved Code(s): E87.5 - HYPERKALEMIA (4) NOVA (acute kidney injury) Assessment/Plan: HD per renal Code(s): N17.9 - ACUTE KIDNEY FAILURE, UNSPECIFIED (4) Anemia Assessment/Plan: --repeat cbc --prbc --hold heparin
[2017-06-23 11:06] LABS: HEMATOCRIT 24.5 % (32.4-45.2); HEMOGLOBIN 7.8 GM/dL (10.7-15.3); MCH 26.9 pg (25.7-33.7); MCHC 31.8 g/dl (32.0-36.0); MEAN CELL VOLUME 84.7 fl (80-96); MEAN PLT VOLUME 8.7 fl (7.5-11.1); PLATELET COUNT 184 K/MM3 (134-434); RBC 2.89 M/mm3 (3.60-5.2); WHITE BLOOD COUNT 11.3 K/mm3 (4.0-10.0)
[2017-06-23] MEDS: BUDESONIDE/FORMETEROL FUMARATE 80/4.5 mcg INHALER IH SCH ×2 (11:23→21:57)
[2017-06-23] MEDS: MEROPENEM 500 MG PUSH 500 MG/10 ML DISP.SYRIN IVPUSH SCH ×2 (11:24→21:48)
--- NOTE | 2017-06-23 11:41 | EKG ---
Test Reason : Blood Pressure : / mmHG Vent. Rate : 081 BPM Atrial Rate : 133 BPM P-R Int : 000 ms QRS Dur : 076 ms QT Int : 348 ms P-R-T Axes : 000 017 002 degrees QTc Int : 404 ms ATRIAL FIBRILLATION LOW VOLTAGE QRS ABNORMAL ECG Confirmed by MD JACK, SOHAIL ([id number]) on 06/23/2017 11:40:47 AM Referred By: Lyle HERNANDEZ Confirmed By:SOHAIL SANTIAGO MD
--- NOTE | 2017-06-23 12:00 | PN ---
Progress Note (short form) - Note Progress Note: RENAL Pt awake and alert comfortable has a cuevas and is making urine still on vasopressin Last Vital Signs Temp Pulse Resp BP Pulse Ox 98.6 F 92 H 22 100/64 98 06/23/17 10:00 06/23/17 10:00 06/23/17 10:00 06/23/17 10:00 06/22/17 21:00 lungs clear cvs s1s2 rr abd soft ext +edema, bilateral dressings neuro a+ox3 can have a conversation CBC, BMP 06/23/17 10:45 06/23/17 06:15 Current Medications Generic Name Dose Route Start Last Admin Trade Name Freq PRN Reason Stop Dose Admin Albuterol/Ipratropium 1 amp 06/20/17 15:01 Duoneb - NEB Q4H PRN SHORTNESS OF BREATH Artificial Tears 1 drop 06/22/17 22:00 06/23/17 05:07 Artificial Tears OU 1 drop TID LANCE Administration Budesonide/Formoterol Fumarate 2 puff 06/21/17 11:00 06/23/17 11:23 Symbicort 80/4.5mcg - IH 2 puff BID LANCE Administration Chlorhexidine Gluconate 1 applic 06/20/17 22:00 06/22/17 21:46 Hibiclens For Decolonization - TP 1 applic HS LANCE Administration Fentanyl 25 mcg 06/20/17 15:01 Sublimaze Injection - IVPUSH [id number] PRN PAIN-PACU ORDER X 4 DOSES ONLY Meropenem 500 mg in 10 mls @ 120 mls/hr 06/20/17 22:00 06/23/17 11:24 Merrem (Restricted To Id) - IVPUSH 120 mls/hr BID LANCE Administration Norepinephrine Bitartrate 8, 500 mls @ 18.75 mls/hr 06/20/17 15:01 06/23/17 06:00 000 mcg/ Sodium Chloride IV 7 mcg/min TITR LANCE 26.25 mls/hr Protocol Titration 5 MCG/MIN Sodium Chloride 1,000 mls @ 100 mls/hr 06/20/17 15:01 06/23/17 05:07 Normal Saline - IV 100 mls/hr ASDIR LANCE Administration Vancomycin HCl 750 mg/ 250 mls @ 250 mls/hr 06/21/17 16:00 06/22/17 16:29 Dextrose IVPB 250 mls/hr Q24H LANCE Administration Protocol Vasopressin 50 units/ Sodium 100 mls @ 4.8 mls/hr 06/22/17 01:15 06/23/17 07: 03 Chloride IVPB 4 units/hr ASDIR LANCE 8 mls/hr Protocol Titration 2.4 UNITS/HR Insulin Aspart 1 vial 06/20/17 16:30 06/23/17 06:04 Novolog Vial Sliding Scale - SQ 2 units ACHS LANCE Administration Protocol Insulin Detemir 20 units 06/23/17 07:00 06/23/17 06:04 Levemir Vial SQ 20 units AM LANCE Administration Insulin Detemir 10 units 06/22/17 22:00 06/22/17 21:53 Levemir Vial SQ 10 units HS LANCE Administration Morphine Sulfate 4 mg 06/21/17 11:57 Morphine Injection - IVPUSH Q6H PRN PAIN LEVEL 4 - 6 Mupirocin 1 applic 06/20/17 22:00 06/22/17 21:46 Bactroban Ointment (For Decolonization) - NS 06/23/17 21:59 1 applic BID LANCE Administration Ondansetron HCl 4 mg 06/20/17 15:01 Zofran Injection IVPB Q6H PRN NAUSEA Ondansetron HCl 4 mg 06/20/17 15:01 Zofran Injection IVPUSH Q6H PRN NAUSEA AND/OR VOMITING Tramadol HCl 50 mg 06/21/17 10:01 06/22/17 16:37 Ultram - PO 50 mg Q6H PRN Administration PAIN LEVEL 6-10 IMPRESSION 1. NOVA much better 2. hyperkalemia with ECG changes resolved 3. obesity 4. DM 5. a-fib 6. HTN 7. chronic lower extremity ulcers 8. gastritis 9. sepsis 10. hyponatremia resolved 11. severe hypoalbuminemia Plan - start midodrine and see if this allows withdrawal of pressors - repeat labs in am - no hd necessary - cont abx - monitor wbc - avoid nsaids, pt was taking nsaids heavily before admission - monitor lytes - taper off pressors to map of 65 MV
--- NOTE | 2017-06-23 15:48 | PN ---
Progress Note, Physician History of Present Illness: feeling better breathing better still requiring pressors - Current Medication List Current Medications: Active Medications Albuterol/Ipratropium (Duoneb -) 1 amp NEB Q4H PRN PRN Reason: SHORTNESS OF BREATH Artificial Tears (Artificial Tears) 1 drop OU TID [facility] Last Admin: 06/23/17 05:07 Dose: 1 drop Budesonide/Formoterol Fumarate (Symbicort 80/4.5mcg -) 2 puff IH BID [facility] Last Admin: 06/23/17 11:23 Dose: 2 puff Chlorhexidine Gluconate (Hibiclens For Decolonization -) 1 applic TP HS [facility] Last Admin: 06/22/17 21:46 Dose: 1 applic Fentanyl (Sublimaze Injection -) 25 mcg IVPUSH [id number] PRN PRN Reason: PAIN-PACU ORDER X 4 DOSES ONLY Meropenem (Merrem (Restricted To Id) -) 500 mg in 10 mls @ 120 mls/hr IVPUSH BID [facility] Last Admin: 06/23/17 11:24 Dose: 120 mls/hr Norepinephrine Bitartrate 8, (000 mcg/ Sodium Chloride) 500 mls @ 18.75 mls/hr IV TITR LANCE; 5 MCG/MIN PRN Reason: Protocol Last Titration: 06/23/17 06:00 Dose: 7 mcg/min, 26.25 mls/hr Sodium Chloride (Normal Saline -) 1,000 mls @ 100 mls/hr IV ASDIR [facility] Last Admin: 06/23/17 05:07 Dose: 100 mls/hr Vancomycin HCl 750 mg/ (Dextrose) 250 mls @ 250 mls/hr IVPB Q24H LANCE PRN Reason: Protocol Last Admin: 06/22/17 16:29 Dose: 250 mls/hr Vasopressin 50 units/ Sodium (Chloride) 100 mls @ 4.8 mls/hr IVPB ASDIR LANCE; 2.4 UNITS/HR PRN Reason: Protocol Last Titration: 06/23/17 07:03 Dose: 4 units/hr, 8 mls/hr Insulin Aspart (Novolog Vial Sliding Scale -) 1 vial SQ ACHS [facility] PRN Reason: Protocol Last Admin: 06/23/17 06:04 Dose: 2 units Insulin Detemir (Levemir Vial) 20 units SQ AM [facility] Last Admin: 06/23/17 06:04 Dose: 20 units Insulin Detemir (Levemir Vial) 10 units SQ HS [facility]ANCE Last Admin: 06/22/17 21:53 Dose: 10 units Morphine Sulfate (Morphine Injection -) 4 mg IVPUSH Q6H PRN PRN Reason: PAIN LEVEL 4 - 6 Mupirocin (Bactroban Ointment (For Decolonization) -) 1 applic NS BID LANCE Stop: 06/23/17 21:59 Last Admin: 06/22/17 21:46 Dose: 1 applic Ondansetron HCl (Zofran Injection) 4 mg IVPB Q6H PRN PRN Reason: NAUSEA Ondansetron HCl (Zofran Injection) 4 mg IVPUSH Q6H PRN PRN Reason: NAUSEA AND/OR VOMITING Tramadol HCl (Ultram -) 50 mg PO Q6H PRN PRN Reason: PAIN LEVEL 6-10 Last Admin: 06/22/17 16:37 Dose: 50 mg - Objective Vital Signs: Vital Signs Temperature 98.6 F 06/23/17 14:00 Pulse Rate 90 06/23/17 14:00 Respiratory Rate 22 06/23/17 14:00 Blood Pressure 102/62 06/23/17 14:00 O2 Sat by Pulse Oximetry (%) 98 06/22/17 21:00 Constitutional: Yes: No Distress, Calm, Obese Cardiovascular: Yes: S1, S2 Respiratory: Yes: Regular, Poor Air Entry Gastrointestinal: Yes: Normal Bowel Sounds, Soft Musculoskeletal: Yes: Other Extremities: Yes: Other Wound/Incision: Yes: Dressing Dry and Intact Neurological: Yes: Alert, Oriented Psychiatric: Yes: Alert, Oriented Labs: CBC, BMP 06/23/17 10:45 06/23/17 06:15 INR, PTT INR 1.16 (0.82-1.09) H 06/18/17 20:30 Assessment/Plan Problem List - Problems (1) Hyperkalemia Code(s): E87.5 - HYPERKALEMIA (2) Ulcers of both lower extremities Code(s): L97.919 - NON-PRS CHRONIC ULC UNSP PRT OF R LOW LEG W UNSP SEVERITY; L97.929 - NON-PRS CHRONIC ULC UNSP PRT OF L LOW LEG W UNSP SEVERITY Qualifiers: Non-pressure ulcer stage: unspecified non-pressure ulcer stage Qualified Code(s): L97.919 - Non-pressure chronic ulcer of unspecified part of right lower leg with unspecified severity; L97.929 - Non-pressure chronic ulcer of unspecified part of left lower leg with unspecified severity; L97.929 - Non- pressure chronic ulcer of unspecified part of left lower leg with unspecified severity; L97.929 - Non-pressure chronic ulcer of unspecified part of left lower leg with unspecified severity; L97.929 - Non-pressure chronic ulcer of unspecified part of left lower leg with unspecified severity (3) Unable to ambulate Code(s): R26.2 - DIFFICULTY IN WALKING, NOT ELSEWHERE CLASSIFIED (4) NOVA (acute kidney injury) Code(s): N17.9 - ACUTE KIDNEY FAILURE, UNSPECIFIED (5) Acute renal failure Code(s): N17.9 - ACUTE KIDNEY FAILURE, UNSPECIFIED (6) Afib Code(s): I48.91 - UNSPECIFIED ATRIAL FIBRILLATION sepsis leukocytosis electrolyte abn plan' continue abx wound care cx reports await for sensitivities will see ow wound behaves rest as per icu cc time 40 min
[2017-06-23] MEDS: VANCOMYCIN 750 MG in DEXTROSE 5%-WATER - 250 ML IVPB SCH (17:18)
[2017-06-23] MEDS: NOREPINEPHRINE BITARTRATE 8,000 MCG in SODIUM CHLORIDE 492 ML IV SCH (17:19)
--- NOTE | 2017-06-23 17:36 | PN ---
Progress Note (short form) - Note Progress Note: PULM/CCM Pt Seen & examined in the ICU. Pt is CA+OX3, denies any SOB, remains on low dose pressors, making urine, legs are wrapped, notice toes w/ gangrene. Active Medications Albuterol/Ipratropium (Duoneb -) 1 amp NEB Q4H PRN PRN Reason: SHORTNESS OF BREATH Artificial Tears (Artificial Tears) 1 drop OU TID [facility] Last Admin: 06/23/17 15:00 Dose: 1 drop Budesonide/Formoterol Fumarate (Symbicort 80/4.5mcg -) 2 puff IH BID [facility] Last Admin: 06/23/17 11:23 Dose: 2 puff Chlorhexidine Gluconate (Hibiclens For Decolonization -) 1 applic TP HS [facility] Last Admin: 06/22/17 21:46 Dose: 1 applic Fentanyl (Sublimaze Injection -) 25 mcg IVPUSH [id number] PRN PRN Reason: PAIN-PACU ORDER X 4 DOSES ONLY Meropenem (Merrem (Restricted To Id) -) 500 mg in 10 mls @ 120 mls/hr IVPUSH BID [facility] Last Admin: 06/23/17 11:24 Dose: 120 mls/hr Norepinephrine Bitartrate 8, (000 mcg/ Sodium Chloride) 500 mls @ 18.75 mls/hr IV TITR LANCE; 5 MCG/MIN PRN Reason: Protocol Last Admin: 06/23/17 17:19 Dose: Not Given Sodium Chloride (Normal Saline -) 1,000 mls @ 100 mls/hr IV ASDIR [facility] Last Admin: 06/23/17 05:07 Dose: 100 mls/hr Vancomycin HCl 750 mg/ (Dextrose) 250 mls @ 250 mls/hr IVPB Q24H LANCE PRN Reason: Protocol Last Admin: 06/23/17 17:18 Dose: 250 mls/hr Vasopressin 50 units/ Sodium (Chloride) 100 mls @ 4.8 mls/hr IVPB ASDIR LANCE; 2.4 UNITS/HR PRN Reason: Protocol Last Titration: 06/23/17 07:03 Dose: 4 units/hr, 8 mls/hr Insulin Aspart (Novolog Vial Sliding Scale -) 1 vial SQ ACHS [facility] PRN Reason: Protocol Last Admin: 06/23/17 17:17 Dose: 2 units Insulin Detemir (Levemir Vial) 20 units SQ AM [facility] Last Admin: 06/23/17 06:04 Dose: 20 units Insulin Detemir (Levemir Vial) 10 units SQ HS [facility] Last Admin: 06/22/17 21:53 Dose: 10 units Morphine Sulfate (Morphine Injection -) 4 mg IVPUSH Q6H PRN PRN Reason: PAIN LEVEL 4 - 6 Mupirocin (Bactroban Ointment (For Decolonization) -) 1 applic NS BID [facility] Stop: 06/23/17 21:59 Last Admin: 06/23/17 10:00 Dose: 1 applic Ondansetron HCl (Zofran Injection) 4 mg IVPB Q6H PRN PRN Reason: NAUSEA Ondansetron HCl (Zofran Injection) 4 mg IVPUSH Q6H PRN PRN Reason: NAUSEA AND/OR VOMITING Tramadol HCl (Ultram -) 50 mg PO Q6H PRN PRN Reason: PAIN LEVEL 6-10 Last Admin: 06/22/17 16:37 Dose: 50 mg Vital Signs Period Temp Pulse Resp BP Sys/Callahan Pulse Ox Last 24 Hr 98.6 F-99.9 F 85-99 12-22 79-113/39-68 98-98 Intake & Output 06/20/17 06/21/17 06/22/17 06/23/17 23:59 23:59 23:59 23:59 Intake Total 3954 3075 3399 2415.6 Output Total 3100 1000 1200 600 Balance 854 2075 2199 1815.6 Weight 116.828 kg 118.614 kg 121.608 kg 122.379 kg GEN: Morbidly obese middle aged woman in bed, NAD HEENT: PERRL, an-icteric, MMM PULM: CTAB CV: nml S1 S2, RR, unable to appreciate any G/M/R ABD: Obese, + BS, S/S N/T N/D X4Q CBC, BMP 06/23/17 10:45 06/23/17 06:15 Microbiology 06/18/17 15:00 Blood - Peripheral Venous Blood Culture - Final NO GROWTH AFTER 5 DAYS INCUBATION 06/18/17 15:00 Blood - Peripheral Venous Blood Culture - Final NO GROWTH AFTER 5 DAYS INCUBATION 06/19/17 15:10 Abscess Gram Stain - Final 06/19/17 15:10 Abscess Wound Culture - Final Klebsiella Oxytoca 06/22/17 01:00 Blood - Central Line Blood Culture - Preliminary NO GROWTH OBTAINED AFTER 24 HOURS, INCUBATION TO CONTINUE FOR 4 DAYS. 06/22/17 00:30 Blood - Central Line Blood Culture - Preliminary NO GROWTH OBTAINED AFTER 24 HOURS, INCUBATION TO CONTINUE FOR 4 DAYS. 06/19/17 14:50 Leg - Left Lower Gram Stain - Final 06/19/17 14:50 Leg - Left Lower Wound Culture - Final Klebsiella Oxytoca Enterococcus Faecalis 06/19/17 01:14 Urine - Urine Johnson Urine Culture - Final NO GROWTH OBTAINED RECENT STUDIES TO NOTE: CXR 06/22: Since 125 20/10 at 0718 hours, a new right jugular line is been inserted and the tip is at the junction of the SVC and right atrium. There is a slightly widened mediastinum with congestive changes. There is no sign of a pneumothorax. Follow-up recommended. Impression: New right line and no pneumothorax. ASSESS: This is a 52 y/o morbidly obese woman, IDDM, A-Fib on Eliquis, & gastritis, admitted on 06/18 for sepsis 2/2 worsening chronic lower ext venous stasis ulcers & cellulitis. PLAN: -Supp Fio2 prsn for an SpO2 > 92% -Nebs -Symbicort -CPT -IS -Start midodrine and wean Pressors as tolerated -Cont Vanc -F/u Vanc Levels -Cont Nita -Elevate LEs -LE care a/p Sx -FSs -Cont novolog SS -levemir 20U q AM -levemir 10U HS -ENDO -Stict I's & O's -Monitor UOP -Trend BUN/Cr -Replete e-lytes prn -Renal Dose all -Absolutely NO MORE NSAIDS (pt was taking nsaids heavily before admission) -HD a/p RENAL -Cont Heparin gtt (A-Fib) -BR -Decolonize skin -PPI DGL, ACNP-[facility] ICU PULM / [facility] [id number] Critical Care Total Critical Care Time (in minutes): 39 Critical Care Statement: The care of this patient involved high complexity decision making to prevent further life threatening deterioration of the patient 's condition and/or to evaluate & treat vital organ system(s) failure or risk of failure.
[2017-06-23] MEDS ORDERED: NOREPINEPHRINE BITARTRATE 4 MG/4 ML ML IV ONE (20:23)
[2017-06-23] MEDS: CHLORHEXIDINE GLUCONATE 4% CLEANSER FOR DECOLONIZATION TP SCH (21:48)
[2017-06-23] MEDS: INSULIN DETEMIR 100 UNITS/ML MDV SQ SCH (21:50)
[2017-06-24] MEDS ORDERED: VASOPRESSIN 20 UNITS/ML VIAL IV ONE (02:10)
[2017-06-24] MEDS: VASOPRESSIN 50 UNITS in SODIUM CHLORIDE 97.5 ML IVPB SCH (02:32)
[2017-06-24 06:06] LABS: HEMATOCRIT 26.9 % (32.4-45.2); HEMOGLOBIN 8.6 GM/dL (10.7-15.3); MEAN CELL VOLUME 84.3 fl (80-96); MEAN PLT VOLUME 8.9 fl (7.5-11.1); PLATELET COUNT 245 K/MM3 (134-434); RBC 3.19 M/mm3 (3.60-5.2); WHITE BLOOD COUNT 19.8 K/mm3 (4.0-10.0)
[2017-06-24] MEDS ORDERED: INSULIN DETEMIR 100 UNITS/ML MDV SQ ONE (06:52)
[2017-06-24] MEDS: INSULIN DETEMIR 100 UNITS/ML MDV SQ SCH ×2 (06:56→21:14)
[2017-06-24] MEDS: INSULIN SLIDING SCALE (NOVOLOG) 1 VIAL SQ SCH ×4 (06:58→21:35)
[2017-06-24] MEDS: ARTIFICIAL TEARS (POLYVINYL ALCOHOL 1.4%) OPTH DROPS OU SCH ×3 (06:59→21:20)
[2017-06-24] MEDS ORDERED: INSULIN (NOVOLOG) ASPART 100 UNITS/ML 10ML VIAL ONE (07:25)
[2017-06-24 08:13] LABS: ALBUMIN 1.8 g/dl (3.4-5.0); ANION GAP 12 (8-16); BILIRUBIN,TOTAL 0.2 mg/dL (0.2-1.0); BLOOD UREA NITROGEN 25 mg/dL (7-18); CALCIUM 8.2 mg/dL (8.5-10.1); CHLORIDE 108 mmol/L (98-107); CO2 21 mmol/L (21-32); CREATININE 0.9 mg/dL (0.55-1.02); GLUCOSE,RANDOM 177 mg/dL (74-106); POTASSIUM 3.5 mmol/L (3.5-5.1); SGOT/AST 10 U/L (15-37); SGPT/ALT 25 U/L (12-78); SODIUM 141 mmol/L (136-145); TOT PROT 5.2 g/dl (6.4-8.2)
[2017-06-24 08:14] LABS: ALK PHOS 95 U/L (45-117)
--- NOTE | 2017-06-24 08:59 | PN ---
Physical Exam: SUBJECTIVE: Patient seen and examined The patient is a 52 year old female with a history of DM, afib, gastritis, cellulitis who was admitted for AMS secondary to nova with electrolyte derangement for urgent dialysis with associated hypotension. The patient reports some continued discomfort in her lower extremities. She was placed on midorine and vasopressin over the weekend for continue pressor support. H/H drop was noted yesterday with the patient's heparin drip being placed on hold. Otherwise no acute events overnight. OBJECTIVE: Vital Signs Period Temp Pulse Resp BP Sys/Callahan Pulse Ox Last 24 Hr 98.6 F-99.5 F 62-92 20-29 70-135/50-95 96-98 GENERAL: The patient is awake, alert, and fully oriented, in no acute distress. HEAD: Normal with no signs of trauma. EYES: sclera anicteric, conjunctiva clear. No ptosis. ENT: oropharynx clear without exudates, moist mucous membranes. NECK: Trachea midline, full range of motion, supple. LUNGS: Breath sounds equal, clear to auscultation bilaterally, no wheezes, no crackles, no accessory muscle use. HEART: Regular rate and rhythm, S1, S2 without murmur, rub or gallop. ABDOMEN: Soft, nontender, nondistended, normoactive bowel sounds, no guarding, no rebound, no hepatosplenomegaly, no masses. EXTREMITIES: 2+ pulses, warm, well-perfused, 2+ edema. Lower extremity erythema and warmth with bilateral lower extremity wounds with dry dressings. NEUROLOGICAL: Normal speech, gait not observed. PSYCH: Normal mood, normal affect. SKIN: Warm, dry, normal turgor, no rashes or lesions noted Laboratory Results - last 24 hr 06/21/17 06/21/17 06/22/17 17:09 22:05 05:37 WBC RBC Hgb Hct MCV MCH MCHC RDW Plt Count MPV PTT (Actin FS) Sodium Potassium Chloride Carbon Dioxide Anion Gap BUN Creatinine Creat Clearance w eGFR POC Glucometer 221.14930 170.61990 [phone] Random Glucose Calcium Total Bilirubin AST ALT Alkaline Phosphatase Creatine Kinase Troponin I Total Protein Albumin Blood Type Antibody Screen 06/22/17 06/22/17 06/22/17 12:06 17:32 21:50 WBC RBC Hgb Hct MCV MCH MCHC RDW Plt Count MPV PTT (Actin FS) Sodium Potassium Chloride Carbon Dioxide Anion Gap BUN Creatinine Creat Clearance w eGFR POC Glucometer 286.46259 290.84139 239.28400 Random Glucose Calcium Total Bilirubin AST ALT Alkaline Phosphatase Creatine Kinase Troponin I Total Protein Albumin Blood Type Antibody Screen 06/23/17 06/23/17 06/23/17 10:45 10:45 20:00 WBC 11.3 H RBC 2.89 L Hgb 7.8 L Hct 24.5 L MCV 84.7 MCH 26.9 MCHC 31.8 L RDW 14.0 Plt Count 184 MPV 8.7 PTT (Actin FS) Sodium Potassium Chloride Carbon Dioxide Anion Gap BUN Creatinine Creat Clearance w eGFR POC Glucometer Random Glucose Calcium Total Bilirubin AST ALT Alkaline Phosphatase Creatine Kinase 15 L Troponin I < 0.02 Total Protein Albumin Blood Type A POSITIVE Antibody Screen Negative 06/24/17 06/24/17 06/24/17 05:35 05:35 05:35 WBC 19.8 H D RBC 3.19 L Hgb 8.6 L D Hct 26.9 L MCV 84.3 MCH 27.0 MCHC 32.0 RDW 14.0 Plt Count 245 D MPV 8.9 PTT (Actin FS) 21.4 L D Sodium 141 Potassium 3.5 Chloride 108 H Carbon Dioxide 21 Anion Gap 12 BUN 25 H Creatinine 0.9 Creat Clearance w eGFR > 60 POC Glucometer Random Glucose 177 H Calcium 8.2 L Total Bilirubin 0.2 AST 10 L ALT 25 Alkaline Phosphatase 95 Creatine Kinase Troponin I Total Protein 5.2 L Albumin 1.8 L Blood Type Antibody Screen Active Medications Generic Name Dose Route Start Last Admin Trade Name Freq PRN Reason Stop Dose Admin Albuterol/Ipratropium 1 amp 06/20/17 15:01 Duoneb - NEB Q4H PRN SHORTNESS OF BREATH Artificial Tears 1 drop 06/22/17 22:00 06/24/17 06:59 Artificial Tears OU 1 drop TID LANCE Administration Budesonide/Formoterol Fumarate 2 puff 06/21/17 11:00 06/23/17 21:57 Symbicort 80/4.5mcg - IH 2 puff BID LANCE Administration Chlorhexidine Gluconate 1 applic 06/20/17 22:00 06/23/17 21:48 Hibiclens For Decolonization - TP 1 applic HS LANCE Administration Fentanyl 25 mcg 06/20/17 15:01 Sublimaze Injection - IVPUSH [id number] PRN PAIN-PACU ORDER X 4 DOSES ONLY Meropenem 500 mg in 10 mls @ 120 mls/hr 06/20/17 22:00 06/23/17 21:48 Merrem (Restricted To Id) - IVPUSH 120 mls/hr BID LANCE Administration Norepinephrine Bitartrate 8, 500 mls @ 18.75 mls/hr 06/20/17 15:01 06/23/17 17:19 000 mcg/ Sodium Chloride IV Not Given TITR LANCE Protocol 5 MCG/MIN Vancomycin HCl 750 mg/ 250 mls @ 250 mls/hr 06/21/17 16:00 06/23/17 17:18 Dextrose IVPB 250 mls/hr Q24H LANCE Administration Protocol Vasopressin 50 units/ Sodium 100 mls @ 4.8 mls/hr 06/22/17 01:15 06/24/17 02: 32 Chloride IVPB 6 units/hr ASDIR LANCE 12 mls/hr Protocol Administration 2.4 UNITS/HR Insulin Aspart 1 vial 06/20/17 16:30 06/24/17 06:58 Novolog Vial Sliding Scale - SQ 2 units ACHS LANCE Administration Protocol Insulin Detemir 10 units 06/22/17 22:00 06/23/17 21:50 Levemir Vial SQ 10 units HS LANCE Administration Insulin Detemir 30 units 06/24/17 07:00 06/24/17 06:56 Levemir Vial SQ 30 units AM LANCE Administration Midodrine 5 mg 06/24/17 10:00 Proamatine - PO TID-MID LANCE Morphine Sulfate 4 mg 06/21/17 11:57 Morphine Injection - IVPUSH Q6H PRN PAIN LEVEL 4 - 6 Ondansetron HCl 4 mg 06/20/17 15:01 Zofran Injection IVPB Q6H PRN NAUSEA Ondansetron HCl 4 mg 06/20/17 15:01 Zofran Injection IVPUSH Q6H PRN NAUSEA AND/OR VOMITING Tramadol HCl 50 mg 06/21/17 10:01 06/22/17 16:37 Ultram - PO 50 mg Q6H PRN Administration PAIN LEVEL 6-10 ASSESSMENT/PLAN: The patient is a 52 year old female with a history of DM, afib, gastritis, cellulitis who was admitted for AMS secondary to nova with electrolyte derangement for urgent dialysis with associated hypotension. NEURO Patient is alert and oriented x3 No issues currently. -Will continue to monitor. CV #Septic Shock, with lactic acidosis and hypotension Patient currently requiring pressors for to maintain MAP >65. The patient is likely septic from her lower extremity wounds. - Patient was started on midorine over the weekend and vasopressin with improvements in her bp. - Will continue the patient on levophed and vasopressin and titrate as needed to maintain MAP >65 with the attempt to wean off. - Will hold anti-htn home meds: cardizemm 30mg po QID RESP #Respiratory distress (Improved) The patient is currently off bipap and is resting comfortable. -Will continue to monitor. GI No Issues currently. Heme Acute drop in H/H 1 day ago. -h/h improving today. -We are comfortable restarting the patient on Eliquis for anticoagulation. -Will continue to monitor h/h Renal #NOVA The patient's hyponatremia and hyperkalemia is no improved post dialysis with an improved EKG from admission. - Will switch the patient to NS maintenance fluids per Nephrology recs. - Will continue cuevas for UOP monitoring ID #[id number] Likely secondary to the patient's cellulitis and lower extremity wounds. ID has been consulted - Continue Vancomycin IV daily - Patient had debridement of the lower extremity wounds. MSK No issues currently FEN/GI -Replete electrolytes PRN, will monitor PPX -Eliquis DISPO: Continue ICU level of care. Visit type - Emergency Visit Emergency Visit: No - New Patient This patient is new to me today: No - Critical Care Critical Care patient: Yes Total Critical Care Time (in minutes): 35 Critical Care Statement: The care of this patient involved high complexity decision making to prevent further life threatening deterioration of the patient 's condition and/or to evaluate & treat vital organ system(s) failure or risk of failure.
[2017-06-24] MEDS: BUDESONIDE/FORMETEROL FUMARATE 80/4.5 mcg INHALER IH SCH ×2 (10:14→21:20)
[2017-06-24] MEDS: MEROPENEM 500 MG PUSH 500 MG/10 ML DISP.SYRIN IVPUSH SCH ×2 (10:15→21:13)
[2017-06-24] MEDS: MIDODRINE HCL 5 MG TABLET PO SCH ×2 (10:15→14:48)
--- NOTE | 2017-06-24 12:34 | PN ---
Progress Note, Physician Chief Complaint: awake alert oriented - Current Medication List Current Medications: Active Medications Albuterol/Ipratropium (Duoneb -) 1 amp NEB Q4H PRN PRN Reason: SHORTNESS OF BREATH Apixaban (Eliquis -) 5 mg PO BID [facility] Artificial Tears (Artificial Tears) 1 drop OU TID [facility] Last Admin: 06/24/17 06:59 Dose: 1 drop Budesonide/Formoterol Fumarate (Symbicort 80/4.5mcg -) 2 puff IH BID [facility] Last Admin: 06/24/17 10:14 Dose: 2 puff Chlorhexidine Gluconate (Hibiclens For Decolonization -) 1 applic TP HS [facility] Last Admin: 06/23/17 21:48 Dose: 1 applic Fentanyl (Sublimaze Injection -) 25 mcg IVPUSH [id number] PRN PRN Reason: PAIN-PACU ORDER X 4 DOSES ONLY Meropenem (Merrem (Restricted To Id) -) 500 mg in 10 mls @ 120 mls/hr IVPUSH BID [facility] Last Admin: 06/24/17 10:15 Dose: 120 mls/hr Norepinephrine Bitartrate 8, (000 mcg/ Sodium Chloride) 500 mls @ 18.75 mls/hr IV TITR [facility]; 5 MCG/MIN PRN Reason: Protocol Last Titration: 06/24/17 10:22 Dose: 2 mcg/min, 7.5 mls/hr Vancomycin HCl 750 mg/ (Dextrose) 250 mls @ 250 mls/hr IVPB Q24H [facility] PRN Reason: Protocol Last Admin: 06/23/17 17:18 Dose: 250 mls/hr Vasopressin 50 units/ Sodium (Chloride) 100 mls @ 4.8 mls/hr IVPB ASDIR [facility]; 2.4 UNITS/HR PRN Reason: Protocol Last Titration: 06/24/17 10:00 Dose: 4 units/hr, 8 mls/hr Insulin Aspart (Novolog Vial Sliding Scale -) 1 vial SQ ACHS [facility] PRN Reason: Protocol Last Admin: 06/24/17 12:00 Dose: 4 units Insulin Detemir (Levemir Vial) 10 units SQ HS [facility] Last Admin: 06/23/17 21:50 Dose: 10 units Insulin Detemir (Levemir Vial) 30 units SQ AM [facility] Last Admin: 06/24/17 06:56 Dose: 30 units Midodrine (Proamatine -) 5 mg PO TID-MID [facility] Last Admin: 06/24/17 10:15 Dose: 5 mg Morphine Sulfate (Morphine Injection -) 4 mg IVPUSH Q6H PRN PRN Reason: PAIN LEVEL 4 - 6 Ondansetron HCl (Zofran Injection) 4 mg IVPB Q6H PRN PRN Reason: NAUSEA Ondansetron HCl (Zofran Injection) 4 mg IVPUSH Q6H PRN PRN Reason: NAUSEA AND/OR VOMITING - Objective Vital Signs: Vital Signs Temperature 98.4 F 06/24/17 10:00 Pulse Rate 72 06/24/17 12:00 Respiratory Rate 18 06/24/17 12:00 Blood Pressure 142/92 06/24/17 12:00 O2 Sat by Pulse Oximetry (%) 98 06/24/17 09:00 Constitutional: Yes: Calm Cardiovascular: Yes: Regular Rate and Rhythm, S1, S2 Respiratory: Yes: CTA Bilaterally Gastrointestinal: Yes: Soft, Abdomen, Obese Edema: Yes Wound/Incision: Yes: Dressing Dry and Intact Labs: CBC, BMP 06/24/17 05:35 06/24/17 05:35 INR, PTT INR 1.16 (0.82-1.09) H 06/18/17 20:30 Problem List - Problems (1) Leukocytosis Assessment/Plan: ID on board on iv abx-meropenem culture sent Microbiology 06/22/17 01:00 Blood - Central Line Blood Culture - Preliminary NO GROWTH OBTAINED AFTER 48 HOURS, INCUBATION TO CONTINUE FOR 3 DAYS. 06/22/17 00:30 Blood - Central Line Blood Culture - Preliminary NO GROWTH OBTAINED AFTER 48 HOURS, INCUBATION TO CONTINUE FOR 3 DAYS. Code(s): D72.829 - ELEVATED WHITE BLOOD CELL COUNT, UNSPECIFIED (2) Ulcers of both lower extremities Assessment/Plan: seen by vascular s/p debridemenmt Code(s): L97.919 - NON-PRS CHRONIC ULC UNSP PRT OF R LOW LEG W UNSP SEVERITY; L97.929 - NON-PRS CHRONIC ULC UNSP PRT OF L LOW LEG W UNSP SEVERITY Qualifiers: Non-pressure ulcer stage: unspecified non-pressure ulcer stage Qualified Code(s): L97.919 - Non-pressure chronic ulcer of unspecified part of right lower leg with unspecified severity; L97.929 - Non-pressure chronic ulcer of unspecified part of left lower leg with unspecified severity; L97.929 - Non- pressure chronic ulcer of unspecified part of left lower leg with unspecified severity; L97.929 - Non-pressure chronic ulcer of unspecified part of left lower leg with unspecified severity; L97.929 - Non-pressure chronic ulcer of unspecified part of left lower leg with unspecified severity (3) Hyperkalemia Assessment/Plan: improved-resolved Code(s): E87.5 - HYPERKALEMIA (4) NOVA (acute kidney injury) Assessment/Plan: resolved making urine no more HD need bun/cr much improved and now normal Code(s): N17.9 - ACUTE KIDNEY FAILURE, UNSPECIFIED (5) Afib Assessment/Plan: on eliquis bid Code(s): I48.91 - UNSPECIFIED ATRIAL FIBRILLATION (6) DM2 (diabetes mellitus, type 2) Assessment/Plan: on insulin dose adjusted by endocrine Code(s): E11.9 - TYPE 2 DIABETES MELLITUS WITHOUT COMPLICATIONS Qualifiers: Diabetes mellitus complication detail: with other circulatory complications Assessment/Plan started on midodrine -still on pressors
--- NOTE | 2017-06-24 12:46 | PN ---
Progress Note, Physician History of Present Illness: Pt seen and examined at bedside. She is awake and alert. She says that she feels better. She denies shortness of breath. She is tolerating diet and has appetite. - Current Medication List Current Medications: Active Medications Albuterol/Ipratropium (Duoneb -) 1 amp NEB Q4H PRN PRN Reason: SHORTNESS OF BREATH Apixaban (Eliquis -) 5 mg PO BID [facility] Artificial Tears (Artificial Tears) 1 drop OU TID [facility] Last Admin: 06/24/17 06:59 Dose: 1 drop Budesonide/Formoterol Fumarate (Symbicort 80/4.5mcg -) 2 puff IH BID [facility] Last Admin: 06/24/17 10:14 Dose: 2 puff Chlorhexidine Gluconate (Hibiclens For Decolonization -) 1 applic TP HS [facility] Last Admin: 06/23/17 21:48 Dose: 1 applic Fentanyl (Sublimaze Injection -) 25 mcg IVPUSH [id number] PRN PRN Reason: PAIN-PACU ORDER X 4 DOSES ONLY Meropenem (Merrem (Restricted To Id) -) 500 mg in 10 mls @ 120 mls/hr IVPUSH BID [facility] Last Admin: 06/24/17 10:15 Dose: 120 mls/hr Norepinephrine Bitartrate 8, (000 mcg/ Sodium Chloride) 500 mls @ 18.75 mls/hr IV TITR [facility]; 5 MCG/MIN PRN Reason: Protocol Last Titration: 06/24/17 10:22 Dose: 2 mcg/min, 7.5 mls/hr Vancomycin HCl 750 mg/ (Dextrose) 250 mls @ 250 mls/hr IVPB Q24H [facility] PRN Reason: Protocol Last Admin: 06/23/17 17:18 Dose: 250 mls/hr Vasopressin 50 units/ Sodium (Chloride) 100 mls @ 4.8 mls/hr IVPB ASDIR [facility]; 2.4 UNITS/HR PRN Reason: Protocol Last Titration: 06/24/17 10:00 Dose: 4 units/hr, 8 mls/hr Insulin Aspart (Novolog Vial Sliding Scale -) 1 vial SQ ACHS [facility] PRN Reason: Protocol Last Admin: 06/24/17 12:00 Dose: 4 units Insulin Detemir (Levemir Vial) 10 units SQ HS [facility] Last Admin: 06/23/17 21:50 Dose: 10 units Insulin Detemir (Levemir Vial) 30 units SQ AM [facility] Last Admin: 06/24/17 06:56 Dose: 30 units Midodrine (Proamatine -) 5 mg PO TID-MID [facility] Last Admin: 06/24/17 10:15 Dose: 5 mg Morphine Sulfate (Morphine Injection -) 4 mg IVPUSH Q6H PRN PRN Reason: PAIN LEVEL 4 - 6 Ondansetron HCl (Zofran Injection) 4 mg IVPB Q6H PRN PRN Reason: NAUSEA Ondansetron HCl (Zofran Injection) 4 mg IVPUSH Q6H PRN PRN Reason: NAUSEA AND/OR VOMITING - Objective Vital Signs: Vital Signs Temperature 98.4 F 06/24/17 10:00 Pulse Rate 72 06/24/17 12:00 Respiratory Rate 18 06/24/17 12:00 Blood Pressure 142/92 06/24/17 12:00 O2 Sat by Pulse Oximetry (%) 98 06/24/17 09:00 Constitutional: Yes: Calm Eyes: Yes: Conjunctiva Clear HENT: Yes: Atraumatic Neck: Yes: Supple Cardiovascular: Yes: S1, S2 Respiratory: Yes: CTA Bilaterally Gastrointestinal: Yes: Soft, Abdomen, Obese Genitourinary: Yes: Johnson Present Musculoskeletal: Yes: WNL Edema: Yes Edema: LLE: 1+, RLE: 1+ Wound/Incision: Yes: Open to air Neurological: Yes: Oriented Psychiatric: Yes: Oriented Labs: CBC, BMP 06/24/17 05:35 06/24/17 05:35 INR, PTT INR 1.16 (0.82-1.09) H 06/18/17 20:30 - ....Imaging Chest X-ray: Report Reviewed Problem List - Problems (1) Hyperkalemia Code(s): E87.5 - HYPERKALEMIA (2) Ulcers of both lower extremities Code(s): L97.919 - NON-PRS CHRONIC ULC UNSP PRT OF R LOW LEG W UNSP SEVERITY; L97.929 - NON-PRS CHRONIC ULC UNSP PRT OF L LOW LEG W UNSP SEVERITY Qualifiers: Non-pressure ulcer stage: unspecified non-pressure ulcer stage Qualified Code(s): L97.919 - Non-pressure chronic ulcer of unspecified part of right lower leg with unspecified severity; L97.929 - Non-pressure chronic ulcer of unspecified part of left lower leg with unspecified severity; L97.929 - Non- pressure chronic ulcer of unspecified part of left lower leg with unspecified severity; L97.929 - Non-pressure chronic ulcer of unspecified part of left lower leg with unspecified severity; L97.929 - Non-pressure chronic ulcer of unspecified part of left lower leg with unspecified severity (3) Unable to ambulate Code(s): R26.2 - DIFFICULTY IN WALKING, NOT ELSEWHERE CLASSIFIED (4) NOVA (acute kidney injury) Code(s): N17.9 - ACUTE KIDNEY FAILURE, UNSPECIFIED (5) Acute renal failure Code(s): N17.9 - ACUTE KIDNEY FAILURE, UNSPECIFIED (6) Afib Code(s): I48.91 - UNSPECIFIED ATRIAL FIBRILLATION Assessment/Plan Current Medications Generic Name Dose Route Start Last Admin Trade Name Freq PRN Reason Stop Dose Admin Albuterol/Ipratropium 1 amp 06/20/17 15:01 Duoneb - NEB Q4H PRN SHORTNESS OF BREATH Apixaban 5 mg 06/24/17 22:00 Eliquis - PO BID [facility] Artificial Tears 1 drop 06/22/17 22:00 06/24/17 06:59 Artificial Tears OU 1 drop TID [facility] Administration Budesonide/Formoterol Fumarate 2 puff 06/21/17 11:00 06/24/17 10:14 Symbicort 80/4.5mcg - IH 2 puff BID [facility] Administration Chlorhexidine Gluconate 1 applic 06/20/17 22:00 06/23/17 21:48 Hibiclens For Decolonization - TP 1 applic HS [facility] Administration Fentanyl 25 mcg 06/20/17 15:01 Sublimaze Injection - IVPUSH [id number] PRN PAIN-PACU ORDER X 4 DOSES ONLY Meropenem 500 mg in 10 mls @ 120 mls/hr 06/20/17 22:00 06/24/17 10:15 Merrem (Restricted To Id) - IVPUSH 120 mls/hr BID [facility] Administration Norepinephrine Bitartrate 8, 500 mls @ 18.75 mls/hr 06/20/17 15:01 06/24/17 10:22 000 mcg/ Sodium Chloride IV 2 mcg/min TITR [facility] 7.5 mls/hr Protocol Titration 5 MCG/MIN Vancomycin HCl 750 mg/ 250 mls @ 250 mls/hr 06/21/17 16:00 06/23/17 17:18 Dextrose IVPB 250 mls/hr Q24H [facility] Administration Protocol Vasopressin 50 units/ Sodium 100 mls @ 4.8 mls/hr 06/22/17 01:15 06/24/17 10: 00 Chloride IVPB 4 units/hr ASDIR [facility] 8 mls/hr Protocol Titration 2.4 UNITS/HR Insulin Aspart 1 vial 06/20/17 16:30 06/24/17 12:00 Novolog Vial Sliding Scale - SQ 4 units ACHS [facility] Administration Protocol Insulin Detemir 10 units 06/22/17 22:00 06/23/17 21:50 Levemir Vial SQ 10 units HS [facility] Administration Insulin Detemir 30 units 06/24/17 07:00 06/24/17 06:56 Levemir Vial SQ 30 units AM [facility] Administration Midodrine 5 mg 06/24/17 10:00 06/24/17 10:15 Proamatine - PO 5 mg TID-MID [facility] Administration Morphine Sulfate 4 mg 06/21/17 11:57 Morphine Injection - IVPUSH Q6H PRN PAIN LEVEL 4 - 6 Ondansetron HCl 4 mg 06/20/17 15:01 Zofran Injection IVPB Q6H PRN NAUSEA Ondansetron HCl 4 mg 06/20/17 15:01 Zofran Injection IVPUSH Q6H PRN NAUSEA AND/OR VOMITING Impression 1. NOVA 2. hyperkalemia with ECG changes 3. obesity 4. DM 5. a-fib 6. HTN 7. chronic lower extremity ulcers 8. gastritis 9. sepsis 10. hyponatremia Plan - renal function is stable - will repeat ua and workup proteinuria once more stable - monitor blood pressure - midodrine trial - cxr reviewed, may need diuretics - will follow - avoid nsaids, pt was taking nsaids heavily before admission Dr Epstein
--- NOTE | 2017-06-24 12:56 | PN ---
Teaching Attending Note Name of Resident: Eder Mullins ATTENDING PHYSICIAN STATEMENT I saw and evaluated the patient. I reviewed the resident's note and discussed the case with the resident. I agree with the resident's findings and plan as documented. SUBJECTIVE: Pt seen and examined in the ICU. Remains on levophed, vasopressin gtts. Good urine output. Denies shortness of breath or chest pain. OBJECTIVE: Last Vital Signs Temp Pulse Resp BP Pulse Ox 98.4 F 72 18 142/92 98 06/24/17 10:00 06/24/17 12:00 06/24/17 12:00 06/24/17 12:00 06/24/17 09:00 Intake & Output 06/21/17 06/22/17 06/23/17 06/24/17 23:59 23:59 23:59 23:59 Intake Total 3075 3399 3187.6 1184 Output Total 1000 1200 1400 300 Balance 2075 2199 1787.6 884 Weight 118.614 kg 121.608 kg 122.379 kg Gen: tachypneic at rest Heart: RRR Lung: scattered rhonchi Abd: soft, nontender Ext: dressings dry CBC, BMP 06/24/17 05:35 06/24/17 05:35 Active Medications Albuterol/Ipratropium (Duoneb -) 1 amp NEB Q4H PRN PRN Reason: SHORTNESS OF BREATH Apixaban (Eliquis -) 5 mg PO BID [facility] Artificial Tears (Artificial Tears) 1 drop OU TID [facility] Last Admin: 06/24/17 06:59 Dose: 1 drop Budesonide/Formoterol Fumarate (Symbicort 80/4.5mcg -) 2 puff IH BID [facility] Last Admin: 06/24/17 10:14 Dose: 2 puff Chlorhexidine Gluconate (Hibiclens For Decolonization -) 1 applic TP HS [facility] Last Admin: 06/23/17 21:48 Dose: 1 applic Fentanyl (Sublimaze Injection -) 25 mcg IVPUSH [id number] PRN PRN Reason: PAIN-PACU ORDER X 4 DOSES ONLY Meropenem (Merrem (Restricted To Id) -) 500 mg in 10 mls @ 120 mls/hr IVPUSH BID [facility] Last Admin: 06/24/17 10:15 Dose: 120 mls/hr Norepinephrine Bitartrate 8, (000 mcg/ Sodium Chloride) 500 mls @ 18.75 mls/hr IV TITR [facility]; 5 MCG/MIN PRN Reason: Protocol Last Titration: 06/24/17 10:22 Dose: 2 mcg/min, 7.5 mls/hr Vancomycin HCl 750 mg/ (Dextrose) 250 mls @ 250 mls/hr IVPB Q24H [facility] PRN Reason: Protocol Last Admin: 06/23/17 17:18 Dose: 250 mls/hr Vasopressin 50 units/ Sodium (Chloride) 100 mls @ 4.8 mls/hr IVPB ASDIR [facility]; 2.4 UNITS/HR PRN Reason: Protocol Last Titration: 06/24/17 10:00 Dose: 4 units/hr, 8 mls/hr Insulin Aspart (Novolog Vial Sliding Scale -) 1 vial SQ ACHS [facility] PRN Reason: Protocol Last Admin: 06/24/17 12:00 Dose: 4 units Insulin Detemir (Levemir Vial) 10 units SQ HS [facility] Last Admin: 06/23/17 21:50 Dose: 10 units Insulin Detemir (Levemir Vial) 30 units SQ AM [facility] Last Admin: 06/24/17 06:56 Dose: 30 units Midodrine (Proamatine -) 5 mg PO TID-MID [facility] Last Admin: 06/24/17 10:15 Dose: 5 mg Morphine Sulfate (Morphine Injection -) 4 mg IVPUSH Q6H PRN PRN Reason: PAIN LEVEL 4 - 6 Ondansetron HCl (Zofran Injection) 4 mg IVPB Q6H PRN PRN Reason: NAUSEA Ondansetron HCl (Zofran Injection) 4 mg IVPUSH Q6H PRN PRN Reason: NAUSEA AND/OR VOMITING ASSESSMENT AND PLAN: Cellulitis/r/o Leg Abscesses s/p Debridement Septic Shock Acute on Chronic Renal Failure Lactic Acidosis Atrial Fibrillation Uncontrolled DM - continue antibiotics - wound care - O2 to keep SpO2 >90% - BiPAP as needed to assist in work of breathing - IVF - monitor urine output, creatinine - titrate pressors to maintain MAP >65 - glucose control - rate control - continue anticoagulation - aspiration precautions - PO as tolerated - DVT prophylaxis - continue ICU monitoring critical care time spent in reviewing chart, evaluating patient and formulating plan 35 min
--- NOTE | 2017-06-24 13:06 | PN ---
Progress Note, Physician History of Present Illness: stable no complaints being weaned of pressors does not like the food - Current Medication List Current Medications: Active Medications Albuterol/Ipratropium (Duoneb -) 1 amp NEB Q4H PRN PRN Reason: SHORTNESS OF BREATH Apixaban (Eliquis -) 5 mg PO BID [facility] Artificial Tears (Artificial Tears) 1 drop OU TID [facility] Last Admin: 06/24/17 06:59 Dose: 1 drop Budesonide/Formoterol Fumarate (Symbicort 80/4.5mcg -) 2 puff IH BID [facility] Last Admin: 06/24/17 10:14 Dose: 2 puff Chlorhexidine Gluconate (Hibiclens For Decolonization -) 1 applic TP HS [facility] Last Admin: 06/23/17 21:48 Dose: 1 applic Fentanyl (Sublimaze Injection -) 25 mcg IVPUSH [id number] PRN PRN Reason: PAIN-PACU ORDER X 4 DOSES ONLY Meropenem (Merrem (Restricted To Id) -) 500 mg in 10 mls @ 120 mls/hr IVPUSH BID [facility] Last Admin: 06/24/17 10:15 Dose: 120 mls/hr Norepinephrine Bitartrate 8, (000 mcg/ Sodium Chloride) 500 mls @ 18.75 mls/hr IV TITR [facility]; 5 MCG/MIN PRN Reason: Protocol Last Titration: 06/24/17 10:22 Dose: 2 mcg/min, 7.5 mls/hr Vancomycin HCl 750 mg/ (Dextrose) 250 mls @ 250 mls/hr IVPB Q24H [facility] PRN Reason: Protocol Last Admin: 06/23/17 17:18 Dose: 250 mls/hr Vasopressin 50 units/ Sodium (Chloride) 100 mls @ 4.8 mls/hr IVPB ASDIR [facility]; 2.4 UNITS/HR PRN Reason: Protocol Last Titration: 06/24/17 10:00 Dose: 4 units/hr, 8 mls/hr Insulin Aspart (Novolog Vial Sliding Scale -) 1 vial SQ ACHS [facility] PRN Reason: Protocol Last Admin: 06/24/17 12:00 Dose: 4 units Insulin Detemir (Levemir Vial) 10 units SQ HS [facility] Last Admin: 06/23/17 21:50 Dose: 10 units Insulin Detemir (Levemir Vial) 30 units SQ AM [facility] Last Admin: 06/24/17 06:56 Dose: 30 units Midodrine (Proamatine -) 5 mg PO TID-MID [facility] Last Admin: 06/24/17 10:15 Dose: 5 mg Morphine Sulfate (Morphine Injection -) 4 mg IVPUSH Q6H PRN PRN Reason: PAIN LEVEL 4 - 6 Ondansetron HCl (Zofran Injection) 4 mg IVPB Q6H PRN PRN Reason: NAUSEA Ondansetron HCl (Zofran Injection) 4 mg IVPUSH Q6H PRN PRN Reason: NAUSEA AND/OR VOMITING - Objective Vital Signs: Vital Signs Temperature 98.4 F 06/24/17 10:00 Pulse Rate 72 06/24/17 12:00 Respiratory Rate 18 06/24/17 12:00 Blood Pressure 142/92 06/24/17 12:00 O2 Sat by Pulse Oximetry (%) 98 06/24/17 09:00 Constitutional: Yes: No Distress, Calm Neck: Yes: Supple Cardiovascular: Yes: S1, S2 Respiratory: Yes: Regular, Poor Air Entry Gastrointestinal: Yes: Normal Bowel Sounds, Soft Musculoskeletal: Yes: Other Extremities: Yes: Other Wound/Incision: Yes: Dressing Dry and Intact Neurological: Yes: Alert, Oriented Labs: CBC, BMP 06/24/17 05:35 06/24/17 05:35 INR, PTT INR 1.16 (0.82-1.09) H 06/18/17 20:30 Assessment/Plan Problem List - Problems (1) Hyperkalemia Code(s): E87.5 - HYPERKALEMIA (2) Ulcers of both lower extremities Code(s): L97.919 - NON-PRS CHRONIC ULC UNSP PRT OF R LOW LEG W UNSP SEVERITY; L97.929 - NON-PRS CHRONIC ULC UNSP PRT OF L LOW LEG W UNSP SEVERITY Qualifiers: Non-pressure ulcer stage: unspecified non-pressure ulcer stage Qualified Code(s): L97.919 - Non-pressure chronic ulcer of unspecified part of right lower leg with unspecified severity; L97.929 - Non-pressure chronic ulcer of unspecified part of left lower leg with unspecified severity; L97.929 - Non- pressure chronic ulcer of unspecified part of left lower leg with unspecified severity; L97.929 - Non-pressure chronic ulcer of unspecified part of left lower leg with unspecified severity; L97.929 - Non-pressure chronic ulcer of unspecified part of left lower leg with unspecified severity (3) Unable to ambulate Code(s): R26.2 - DIFFICULTY IN WALKING, NOT ELSEWHERE CLASSIFIED (4) NOVA (acute kidney injury) Code(s): N17.9 - ACUTE KIDNEY FAILURE, UNSPECIFIED (5) Acute renal failure Code(s): N17.9 - ACUTE KIDNEY FAILURE, UNSPECIFIED (6) Afib Code(s): I48.91 - UNSPECIFIED ATRIAL FIBRILLATION sepsis leukocytosis electrolyte abn plan' continue current mgmt will check vanco levels continue dressing cx result noted await for sensitivities elevation of the leg cc time 40 min
[2017-06-24 13:55] LABS: MAGNESIUM 1.6 mg/dL (1.8-2.4); PHOSPHOROUS 2.9 mg/dL (2.5-4.9)
[2017-06-24] MEDS ORDERED: MAGNESIUM SULF 50% (8.12 MEQ/2 ML-1 GM VIAL) IVPB ONE (14:34)
[2017-06-24] MEDS ORDERED: MAGNESIUM OXIDE 400 MG TABLET (FP) PO ONE (14:35)
--- NOTE | 2017-06-24 15:55 | EKG ---
Test Reason : Blood Pressure : / mmHG Vent. Rate : 093 BPM Atrial Rate : 091 BPM P-R Int : 000 ms QRS Dur : 072 ms QT Int : 336 ms P-R-T Axes : 000 031 005 degrees QTc Int : 417 ms ATRIAL FIBRILLATION NONSPECIFIC T WAVE ABNORMALITY WHEN COMPARED WITH ECG OF 22-JUN-2017 14:18, NO SIGNIFICANT CHANGE WAS FOUND Confirmed by MD VENEGAS MARJORY ([id number]) on 06/24/2017 3:55:12 PM Referred By: Confirmed By:BLACK VENEGAS MD
[2017-06-24] MEDS ORDERED: PT OWN MED DRAWER 7, Y5N ONE ×2 (16:25→21:24)
[2017-06-24] MEDS: VANCOMYCIN 750 MG in DEXTROSE 5%-WATER - 250 ML IVPB SCH (16:26)
[2017-06-24] MEDS: NOREPINEPHRINE BITARTRATE 8,000 MCG in SODIUM CHLORIDE 492 ML IV SCH (16:39)
[2017-06-24] MEDS ORDERED: MAG HYDROX/AL HYDROX/SIMETH 355 ML ORAL.SUSP PO ONE (20:23)
[2017-06-24] MEDS: CHLORHEXIDINE GLUCONATE 4% CLEANSER FOR DECOLONIZATION TP SCH (21:15)
[2017-06-24] MEDS: APIXABAN 5 MG TABLET PO SCH (22:25)
[2017-06-25 06:22] LABS: HEMATOCRIT 24.3 % (32.4-45.2); HEMOGLOBIN 7.9 GM/dL (10.7-15.3); MCH 27.1 pg (25.7-33.7); MCHC 32.3 g/dl (32.0-36.0); MEAN CELL VOLUME 84.1 fl (80-96); MEAN PLT VOLUME 9.4 fl (7.5-11.1); PLATELET COUNT 210 K/MM3 (134-434); RBC 2.89 M/mm3 (3.60-5.2); RDW 13.9 % (11.6-15.6); WHITE BLOOD COUNT 12.7 K/mm3 (4.0-10.0)
[2017-06-25] MEDS: VASOPRESSIN 50 UNITS in SODIUM CHLORIDE 97.5 ML IVPB SCH (06:41)
[2017-06-25] MEDS: INSULIN DETEMIR 100 UNITS/ML MDV SQ SCH (06:42)
[2017-06-25] MEDS: INSULIN SLIDING SCALE (NOVOLOG) 1 VIAL SQ SCH ×4 (06:42→22:00)
[2017-06-25] MEDS: ARTIFICIAL TEARS (POLYVINYL ALCOHOL 1.4%) OPTH DROPS OU SCH ×3 (06:43→22:00)
[2017-06-25 06:53] LABS: CHLORIDE 110 mmol/L (98-107); SODIUM 143 mmol/L (136-145)
[2017-06-25 07:00] LABS: ALBUMIN 1.6 g/dl (3.4-5.0); ALK PHOS 78 U/L (45-117); ANION GAP 9 (8-16); BILIRUBIN,TOTAL 0.3 mg/dL (0.2-1.0); BLOOD UREA NITROGEN 19 mg/dL (7-18); CALCIUM 7.8 mg/dL (8.5-10.1); CO2 24 mmol/L (21-32); CREATININE 0.8 mg/dL (0.55-1.02); GLUCOSE,RANDOM 72 mg/dL (74-106); MAGNESIUM 1.7 mg/dL (1.8-2.4); PHOSPHOROUS 2.2 mg/dL (2.5-4.9); SGOT/AST 8 U/L (15-37); SGPT/ALT 20 U/L (12-78); TOT PROT 4.5 g/dl (6.4-8.2)
[2017-06-25 07:10] LABS: POTASSIUM 2.9 mmol/L (3.5-5.1)
[2017-06-25] MEDS ORDERED: POTASSIUM CHLORIDE TABS 20 MEQ TABLET.ER (FP) PO ONE (07:21)
[2017-06-25] MEDS ORDERED: POTASSIUM CHLORIDE 20 MEQ PREMIX IVPB 100 ML IVPB ONE (07:35)
[2017-06-25] MEDS: KCL 20 MEQ PREMIX BAG 100 ML IVPB SCH ×2 (08:07→09:13)
[2017-06-25] MEDS ORDERED: MAGNESIUM SULF 50% (8.12 MEQ/2 ML-1 GM VIAL) IVPB ONE (08:30)
[2017-06-25] MEDS ORDERED: NAPH,MB-DB/K PH,MBDB POWDER PACKET PO ONE (08:30)
--- NOTE | 2017-06-25 09:01 | PN ---
Physical Exam: SUBJECTIVE: Patient seen and examined The patient is a 52 year old female with a history of DM, afib, gastritis, cellulitis who was admitted for AMS secondary to nova with electrolyte derangement for urgent dialysis with associated hypotension. Patient was noted to be hypokalemic this morning and repleated. The patient was taken off pressors yesterday evening and has been stable since that time. Otherwise no acute events. OBJECTIVE: Vital Signs Period Temp Pulse Resp BP Sys/Callahan Pulse Ox Last 24 Hr 98.4 F-99 F 70-104 18-28 98-146/55-95 98-98 GENERAL: The patient is awake, alert, and fully oriented, in no acute distress. HEAD: Normal with no signs of trauma. EYES: sclera anicteric, conjunctiva clear. No ptosis. ENT: oropharynx clear without exudates, moist mucous membranes. NECK: Trachea midline, full range of motion, supple. LUNGS: Breath sounds equal, clear to auscultation bilaterally, no wheezes, no crackles, no accessory muscle use. HEART: Regular rate and rhythm, S1, S2 without murmur, rub or gallop. ABDOMEN: Soft, nontender, nondistended, normoactive bowel sounds, no guarding, no rebound, no hepatosplenomegaly, no masses. EXTREMITIES: 2+ pulses, warm, well-perfused, 2+ edema. Lower extremity erythema and warmth with bilateral lower extremity wounds with dry dressings. NEUROLOGICAL: Normal speech, gait not observed. PSYCH: Normal mood, normal affect. SKIN: Warm, dry, normal turgor, no rashes or lesions noted Laboratory Results - last 24 hr 06/24/17 06/24/17 06/24/17 05:35 16:22 21:22 WBC RBC Hgb Hct MCV MCH MCHC RDW Plt Count MPV PTT (Actin FS) Sodium 141 Potassium 3.5 Chloride 108 H Carbon Dioxide 21 Anion Gap 12 BUN 25 H Creatinine 0.9 Creat Clearance w eGFR > 60 POC Glucometer 110.68576 111.14728 Random Glucose 177 H Calcium 8.2 L Phosphorus 2.9 Magnesium 1.6 L Total Bilirubin 0.2 AST 10 L ALT 25 Alkaline Phosphatase 95 Total Protein 5.2 L Albumin 1.8 L 06/25/17 06/25/17 06/25/17 05:49 05:50 05:50 WBC 12.7 H D RBC 2.89 L Hgb 7.9 L Hct 24.3 L MCV 84.1 MCH 27.1 MCHC 32.3 RDW 13.9 Plt Count 210 MPV 9.4 PTT (Actin FS) 31.6 D Sodium Potassium Chloride Carbon Dioxide Anion Gap BUN Creatinine Creat Clearance w eGFR POC Glucometer 94.22881 Random Glucose Calcium Phosphorus Magnesium Total Bilirubin AST ALT Alkaline Phosphatase Total Protein Albumin 06/25/17 05:50 WBC RBC Hgb Hct MCV MCH MCHC RDW Plt Count MPV PTT (Actin FS) Sodium 143 Potassium 2.9 L* Chloride 110 H Carbon Dioxide 24 Anion Gap 9 BUN 19 H Creatinine 0.8 Creat Clearance w eGFR > 60 POC Glucometer Random Glucose 72 L Calcium 7.8 L Phosphorus 2.2 L Magnesium 1.7 L Total Bilirubin 0.3 D AST 8 L ALT 20 Alkaline Phosphatase 78 Total Protein 4.5 L Albumin 1.6 L Active Medications Generic Name Dose Route Start Last Admin Trade Name Freq PRN Reason Stop Dose Admin Albuterol/Ipratropium 1 amp 06/20/17 15:01 Duoneb - NEB Q4H PRN SHORTNESS OF BREATH Apixaban 5 mg 06/24/17 22:00 06/24/17 22:25 Eliquis - PO 5 mg BID [facility] Administration Artificial Tears 1 drop 06/22/17 22:00 06/25/17 06:43 Artificial Tears OU 1 drop TID [facility] Administration Budesonide/Formoterol Fumarate 2 puff 06/21/17 11:00 06/24/17 21:20 Symbicort 80/4.5mcg - IH 2 puff BID [facility] Administration Chlorhexidine Gluconate 1 applic 06/20/17 22:00 06/24/17 21:15 Hibiclens For Decolonization - TP 1 applic HS [facility] Administration Fentanyl 25 mcg 06/20/17 15:01 Sublimaze Injection - IVPUSH [id number] PRN PAIN-PACU ORDER X 4 DOSES ONLY Meropenem 500 mg in 10 mls @ 120 mls/hr 06/20/17 22:00 06/24/17 21:13 Merrem (Restricted To Id) - IVPUSH 120 mls/hr BID [facility] Administration Norepinephrine Bitartrate 8, 500 mls @ 18.75 mls/hr 06/20/17 15:01 06/24/17 16:39 000 mcg/ Sodium Chloride IV Not Given TITR [facility] Protocol 5 MCG/MIN Vancomycin HCl 750 mg/ 250 mls @ 250 mls/hr 06/21/17 16:00 06/24/17 16:26 Dextrose IVPB 250 mls/hr Q24H [facility] Administration Protocol Vasopressin 50 units/ Sodium 100 mls @ 4.8 mls/hr 06/22/17 01:15 06/25/17 06: 41 Chloride IVPB Not Given ASDIR [facility] Protocol 2.4 UNITS/HR Potassium Chloride 100 mls @ 50 mls/hr 06/25/17 08:00 06/25/17 08:07 Potassium Chloride 20 Meq Premix Ivpb - IVPB 06/25/17 11:59 50 mls/hr Q2H [facility] Administration Insulin Aspart 1 vial 06/20/17 16:30 06/25/17 06:42 Novolog Vial Sliding Scale - SQ Not Given ACHS [facility] Protocol Insulin Detemir 10 units 06/22/17 22:00 06/24/17 21:14 Levemir Vial SQ 10 units HS [facility] Administration Insulin Detemir 30 units 06/24/17 07:00 06/25/17 06:42 Levemir Vial SQ Not Given AM [facility] Midodrine 5 mg 06/24/17 10:00 06/24/17 14:48 Proamatine - PO 5 mg TID-MID [facility] Administration Morphine Sulfate 4 mg 06/21/17 11:57 Morphine Injection - IVPUSH Q6H PRN PAIN LEVEL 4 - 6 Ondansetron HCl 4 mg 06/20/17 15:01 Zofran Injection IVPB Q6H PRN NAUSEA Ondansetron HCl 4 mg 06/20/17 15:01 Zofran Injection IVPUSH Q6H PRN NAUSEA AND/OR VOMITING ASSESSMENT/PLAN: The patient is a 52 year old female with a history of DM, afib, gastritis, cellulitis who was admitted for AMS secondary to nova with electrolyte derangement for urgent dialysis with associated hypotension. NEURO Patient is alert and oriented x3 No issues currently. -Will continue to monitor. CV #Septic Shock, with lactic acidosis and hypotension - Continue midodrine - Patient now off pressors and stable. - Will hold anti-htn home meds: cardizemm 30mg po QID RESP #Respiratory distress (Improved) The patient is currently off bipap and is resting comfortable. -Will continue to monitor. GI No Issues currently. Heme Acute drop in H/H 1 day ago. -h/h improving today. -We are comfortable restarting the patient on Eliquis for anticoagulation. -Will continue to monitor h/h Renal #NOVA The patient's hyponatremia and hyperkalemia is no improved post dialysis with an improved EKG from admission. - Will switch the patient to NS maintenance fluids per Nephrology recs. - Will continue cuevas for UOP monitoring ID #[email or web address] Likely secondary to the patient's cellulitis and lower extremity wounds. ID has been consulted - Continue Vancomycin IV daily - Patient had debridement of the lower extremity wounds. MSK No issues currently FEN/GI -Replete electrolytes PRN, will monitor PPX -Eliquis DISPO: Stable for floor monitoring tomorrow. Visit type - Emergency Visit Emergency Visit: No - New Patient This patient is new to me today: No - Critical Care Critical Care patient: Yes Total Critical Care Time (in minutes): 35 Critical Care Statement: The care of this patient involved high complexity decision making to prevent further life threatening deterioration of the patient 's condition and/or to evaluate & treat vital organ system(s) failure or risk of failure.
[2017-06-25] MEDS ORDERED: PT OWN MED DRAWER 7, Y5N ONE ×4 (09:05→22:01)
[2017-06-25] MEDS: MEROPENEM 500 MG PUSH 500 MG/10 ML DISP.SYRIN IVPUSH SCH ×2 (09:12→22:12)
[2017-06-25] MEDS: APIXABAN 5 MG TABLET PO SCH ×2 (09:14→22:12)
[2017-06-25] MEDS: MIDODRINE HCL 5 MG TABLET PO SCH ×3 (09:41→18:19)
[2017-06-25] MEDS: BUDESONIDE/FORMETEROL FUMARATE 80/4.5 mcg INHALER IH SCH ×2 (10:00→22:12)
--- NOTE | 2017-06-25 10:39 | PN ---
Progress Note, Physician Chief Complaint: off pressors since morning BGM low 94 patient will not me touch her feet or dressing - Current Medication List Current Medications: Active Medications Albuterol/Ipratropium (Duoneb -) 1 amp NEB Q4H PRN PRN Reason: SHORTNESS OF BREATH Apixaban (Eliquis -) 5 mg PO BID [facility] Last Admin: 06/25/17 09:14 Dose: 5 mg Artificial Tears (Artificial Tears) 1 drop OU TID [facility] Last Admin: 06/25/17 06:43 Dose: 1 drop Budesonide/Formoterol Fumarate (Symbicort 80/4.5mcg -) 2 puff IH BID [facility] Last Admin: 06/24/17 21:20 Dose: 2 puff Chlorhexidine Gluconate (Hibiclens For Decolonization -) 1 applic TP HS [facility] Last Admin: 06/24/17 21:15 Dose: 1 applic Fentanyl (Sublimaze Injection -) 25 mcg IVPUSH [id number] PRN PRN Reason: PAIN-PACU ORDER X 4 DOSES ONLY Meropenem (Merrem (Restricted To Id) -) 500 mg in 10 mls @ 120 mls/hr IVPUSH BID [facility] Last Admin: 06/25/17 09:12 Dose: 120 mls/hr Norepinephrine Bitartrate 8, (000 mcg/ Sodium Chloride) 500 mls @ 18.75 mls/hr IV TITR LANCE; 5 MCG/MIN PRN Reason: Protocol Last Admin: 06/24/17 16:39 Dose: Not Given Vancomycin HCl 750 mg/ (Dextrose) 250 mls @ 250 mls/hr IVPB Q24H [facility] PRN Reason: Protocol Last Admin: 06/24/17 16:26 Dose: 250 mls/hr Vasopressin 50 units/ Sodium (Chloride) 100 mls @ 4.8 mls/hr IVPB ASDIR [facility]; 2.4 UNITS/HR PRN Reason: Protocol Last Admin: 06/25/17 06:41 Dose: Not Given Potassium Chloride (Potassium Chloride 20 Meq Premix Ivpb -) 100 mls @ 50 mls/ hr IVPB Q2H [facility] Stop: 06/25/17 11:59 Last Admin: 06/25/17 09:13 Dose: 50 mls/hr Insulin Aspart (Novolog Vial Sliding Scale -) 1 vial SQ ACHS [facility] PRN Reason: Protocol Last Admin: 06/25/17 06:42 Dose: Not Given Insulin Detemir (Levemir Vial) 10 units SQ HS [facility] Last Admin: 06/24/17 21:14 Dose: 10 units Insulin Detemir (Levemir Vial) 30 units SQ AM [facility] Last Admin: 06/25/17 06:42 Dose: Not Given Midodrine (Proamatine -) 5 mg PO TID-MID [facility] Last Admin: 06/25/17 09:41 Dose: 5 mg Morphine Sulfate (Morphine Injection -) 4 mg IVPUSH Q6H PRN PRN Reason: PAIN LEVEL 4 - 6 Ondansetron HCl (Zofran Injection) 4 mg IVPB Q6H PRN PRN Reason: NAUSEA Ondansetron HCl (Zofran Injection) 4 mg IVPUSH Q6H PRN PRN Reason: NAUSEA AND/OR VOMITING - Objective Vital Signs: Vital Signs Temperature 98.8 F 06/25/17 10:00 Pulse Rate 98 H 06/25/17 10:00 Respiratory Rate 20 06/25/17 10:00 Blood Pressure 88/53 06/25/17 10:00 O2 Sat by Pulse Oximetry (%) 98 06/24/17 21:00 Constitutional: Yes: Calm Cardiovascular: Yes: Regular Rate and Rhythm, S1, S2 Respiratory: Yes: CTA Bilaterally Gastrointestinal: Yes: Soft, Abdomen, Obese Wound/Incision: Yes: Dressing Dry and Intact (both legs) Neurological: Yes: Alert, Oriented Labs: CBC, BMP 06/25/17 05:50 06/25/17 05:50 INR, PTT INR 1.16 (0.82-1.09) H 06/18/17 20:30 Problem List - Problems (1) Electrolyte abnormality Assessment/Plan: K and Mag repleted will recheck in evening again Code(s): E87.8 - OTH DISORDERS OF ELECTROLYTE AND FLUID BALANCE, NEC (2) Leukocytosis Assessment/Plan: ID on board on iv abx-meropenem culture sent Microbiology 06/22/17 01:00 Blood - Central Line Blood Culture - Preliminary NO GROWTH OBTAINED AFTER 48 HOURS, INCUBATION TO CONTINUE FOR 3 DAYS. 06/22/17 00:30 Blood - Central Line Blood Culture - Preliminary NO GROWTH OBTAINED AFTER 48 HOURS, INCUBATION TO CONTINUE FOR 3 DAYS. wbc trending down Code(s): D72.829 - ELEVATED WHITE BLOOD CELL COUNT, UNSPECIFIED (3) Ulcers of both lower extremities Assessment/Plan: seen by vascular s/p debridement wound care per vascular Code(s): L97.919 - NON-PRS CHRONIC ULC UNSP PRT OF R LOW LEG W UNSP SEVERITY; L97.929 - NON-PRS CHRONIC ULC UNSP PRT OF L LOW LEG W UNSP SEVERITY Qualifiers: Non-pressure ulcer stage: unspecified non-pressure ulcer stage Qualified Code(s): L97.919 - Non-pressure chronic ulcer of unspecified part of right lower leg with unspecified severity; L97.929 - Non-pressure chronic ulcer of unspecified part of left lower leg with unspecified severity; L97.929 - Non- pressure chronic ulcer of unspecified part of left lower leg with unspecified severity; L97.929 - Non-pressure chronic ulcer of unspecified part of left lower leg with unspecified severity; L97.929 - Non-pressure chronic ulcer of unspecified part of left lower leg with unspecified severity (4) Hyperkalemia Assessment/Plan: improved-resolved Code(s): E87.5 - HYPERKALEMIA (5) NOVA (acute kidney injury) Assessment/Plan: resolved making urine no more HD need bun/cr much improved and now normal Code(s): N17.9 - ACUTE KIDNEY FAILURE, UNSPECIFIED (6) Afib Assessment/Plan: on eliquis bid Code(s): I48.91 - UNSPECIFIED ATRIAL FIBRILLATION (7) DM2 (diabetes mellitus, type 2) Assessment/Plan: dc night time levemir given the low bgm in AM decrease AM levemir to 20 units Code(s): E11.9 - TYPE 2 DIABETES MELLITUS WITHOUT COMPLICATIONS Qualifiers: Diabetes mellitus complication detail: with other circulatory complications
--- NOTE | 2017-06-25 12:49 | PN ---
Teaching Attending Note Name of Resident: Eder Mullins ATTENDING PHYSICIAN STATEMENT I saw and evaluated the patient. I reviewed the resident's note and discussed the case with the resident. I agree with the resident's findings and plan as documented. SUBJECTIVE: Pt seen and examined in the ICU. Still with leg pain. Off pressors. No fevers or chills. OBJECTIVE: Last Vital Signs Temp Pulse Resp BP Pulse Ox 98.8 F 96 H 20 103/58 98 06/25/17 10:00 06/25/17 11:51 06/25/17 11:51 06/25/17 11:51 06/25/17 09:00 Intake & Output 06/22/17 06/23/17 06/24/17 06/25/17 23:59 23:59 23:59 23:59 Intake Total 3399 3187.6 2384 60 Output Total 1200 1400 1200 800 Balance 2199 1787.6 1184 -740 Weight 121.608 kg 122.379 kg 127.777 kg Gen: less tachypneic Heart: RRR Lung: distant breath sounds Abd: soft, nontender Ext: dressings with drainage CBC, BMP 06/25/17 05:50 06/25/17 05:50 Active Medications Albuterol/Ipratropium (Duoneb -) 1 amp NEB Q4H PRN PRN Reason: SHORTNESS OF BREATH Apixaban (Eliquis -) 5 mg PO BID [facility] Last Admin: 06/25/17 09:14 Dose: 5 mg Artificial Tears (Artificial Tears) 1 drop OU TID [facility] Last Admin: 06/25/17 06:43 Dose: 1 drop Budesonide/Formoterol Fumarate (Symbicort 80/4.5mcg -) 2 puff IH BID [facility] Last Admin: 06/24/17 21:20 Dose: 2 puff Chlorhexidine Gluconate (Hibiclens For Decolonization -) 1 applic TP HS [facility] Last Admin: 06/24/17 21:15 Dose: 1 applic Collagenase (Santyl -) 1 applic TP DAILY [facility] Fentanyl (Sublimaze Injection -) 25 mcg IVPUSH [id number] PRN PRN Reason: PAIN-PACU ORDER X 4 DOSES ONLY Meropenem (Merrem (Restricted To Id) -) 500 mg in 10 mls @ 120 mls/hr IVPUSH BID [facility] Last Admin: 06/25/17 09:12 Dose: 120 mls/hr Norepinephrine Bitartrate 8, (000 mcg/ Sodium Chloride) 500 mls @ 18.75 mls/hr IV TITR LANCE; 5 MCG/MIN PRN Reason: Protocol Last Admin: 06/24/17 16:39 Dose: Not Given Vancomycin HCl 750 mg/ (Dextrose) 250 mls @ 250 mls/hr IVPB Q24H [facility] PRN Reason: Protocol Last Admin: 06/24/17 16:26 Dose: 250 mls/hr Vasopressin 50 units/ Sodium (Chloride) 100 mls @ 4.8 mls/hr IVPB ASDIR [facility]; 2.4 UNITS/HR PRN Reason: Protocol Last Admin: 06/25/17 06:41 Dose: Not Given Insulin Aspart (Novolog Vial Sliding Scale -) 1 vial SQ ACHS [facility] PRN Reason: Protocol Last Admin: 06/25/17 06:42 Dose: Not Given Insulin Detemir (Levemir Vial) 20 units SQ AM [facility] Midodrine (Proamatine -) 5 mg PO TID-MID [facility] Last Admin: 06/25/17 09:41 Dose: 5 mg Morphine Sulfate (Morphine Injection -) 4 mg IVPUSH Q6H PRN PRN Reason: PAIN LEVEL 4 - 6 Ondansetron HCl (Zofran Injection) 4 mg IVPB Q6H PRN PRN Reason: NAUSEA Ondansetron HCl (Zofran Injection) 4 mg IVPUSH Q6H PRN PRN Reason: NAUSEA AND/OR VOMITING ASSESSMENT AND PLAN: Cellulitis/r/o Leg Abscesses s/p Debridement Septic Shock Acute on Chronic Renal Failure Lactic Acidosis Atrial Fibrillation Uncontrolled DM - continue antibiotics - wound care - O2 to keep SpO2 >90% - BiPAP as needed to assist in work of breathing - monitor urine output, creatinine - replete and monitor lytes - off pressors, maintain MAP >65 - glucose control - rate control - continue anticoagulation - aspiration precautions - PO as tolerated - DVT prophylaxis - continue ICU monitoring for now critical care time spent in reviewing chart, evaluating patient and formulating plan 35 min
--- NOTE | 2017-06-25 13:46 | PN ---
Progress Note, Physician History of Present Illness: patient stable c/o food - Current Medication List Current Medications: Active Medications Albuterol/Ipratropium (Duoneb -) 1 amp NEB Q4H PRN PRN Reason: SHORTNESS OF BREATH Apixaban (Eliquis -) 5 mg PO BID [facility] Last Admin: 06/25/17 09:14 Dose: 5 mg Artificial Tears (Artificial Tears) 1 drop OU TID [facility] Last Admin: 06/25/17 06:43 Dose: 1 drop Budesonide/Formoterol Fumarate (Symbicort 80/4.5mcg -) 2 puff IH BID [facility] Last Admin: 06/24/17 21:20 Dose: 2 puff Chlorhexidine Gluconate (Hibiclens For Decolonization -) 1 applic TP HS [facility] Last Admin: 06/24/17 21:15 Dose: 1 applic Collagenase (Santyl -) 1 applic TP DAILY [facility] Fentanyl (Sublimaze Injection -) 25 mcg IVPUSH [id number] PRN PRN Reason: PAIN-PACU ORDER X 4 DOSES ONLY Meropenem (Merrem (Restricted To Id) -) 500 mg in 10 mls @ 120 mls/hr IVPUSH BID [facility] Last Admin: 06/25/17 09:12 Dose: 120 mls/hr Norepinephrine Bitartrate 8, (000 mcg/ Sodium Chloride) 500 mls @ 18.75 mls/hr IV TITR LANCE; 5 MCG/MIN PRN Reason: Protocol Last Admin: 06/24/17 16:39 Dose: Not Given Vancomycin HCl 750 mg/ (Dextrose) 250 mls @ 250 mls/hr IVPB Q24H [facility] PRN Reason: Protocol Last Admin: 06/24/17 16:26 Dose: 250 mls/hr Vasopressin 50 units/ Sodium (Chloride) 100 mls @ 4.8 mls/hr IVPB ASDIR [facility]; 2.4 UNITS/HR PRN Reason: Protocol Last Admin: 06/25/17 06:41 Dose: Not Given Insulin Aspart (Novolog Vial Sliding Scale -) 1 vial SQ ACHS [facility] PRN Reason: Protocol Last Admin: 06/25/17 06:42 Dose: Not Given Insulin Detemir (Levemir Vial) 20 units SQ AM [facility] Midodrine (Proamatine -) 5 mg PO TID-MID [facility] Last Admin: 06/25/17 09:41 Dose: 5 mg Morphine Sulfate (Morphine Injection -) 4 mg IVPUSH Q6H PRN PRN Reason: PAIN LEVEL 4 - 6 Ondansetron HCl (Zofran Injection) 4 mg IVPB Q6H PRN PRN Reason: NAUSEA Ondansetron HCl (Zofran Injection) 4 mg IVPUSH Q6H PRN PRN Reason: NAUSEA AND/OR VOMITING - Objective Vital Signs: Vital Signs Temperature 98.8 F 06/25/17 10:00 Pulse Rate 96 H 06/25/17 11:51 Respiratory Rate 20 06/25/17 11:51 Blood Pressure 103/58 06/25/17 11:51 O2 Sat by Pulse Oximetry (%) 98 06/25/17 09:00 Constitutional: Yes: No Distress, Calm, Obese Eyes: Yes: Conjunctiva Clear Cardiovascular: Yes: S1, S2 Respiratory: Yes: Regular, Poor Air Entry (bases) Gastrointestinal: Yes: Normal Bowel Sounds, Soft Musculoskeletal: Yes: Other Extremities: Yes: Other Wound/Incision: Yes: Dressing Dry and Intact Neurological: Yes: Alert, Oriented Labs: CBC, BMP 06/25/17 05:50 INR, PTT INR 1.16 (0.82-1.09) H 06/18/17 20:30 - ....Imaging Chest X-ray: Report Reviewed, Image Reviewed Assessment/Plan Problem List - Problems (1) Hyperkalemia Code(s): E87.5 - HYPERKALEMIA (2) Ulcers of both lower extremities Code(s): L97.919 - NON-PRS CHRONIC ULC UNSP PRT OF R LOW LEG W UNSP SEVERITY; L97.929 - NON-PRS CHRONIC ULC UNSP PRT OF L LOW LEG W UNSP SEVERITY Qualifiers: Non-pressure ulcer stage: unspecified non-pressure ulcer stage Qualified Code(s): L97.919 - Non-pressure chronic ulcer of unspecified part of right lower leg with unspecified severity; L97.929 - Non-pressure chronic ulcer of unspecified part of left lower leg with unspecified severity; L97.929 - Non- pressure chronic ulcer of unspecified part of left lower leg with unspecified severity; L97.929 - Non-pressure chronic ulcer of unspecified part of left lower leg with unspecified severity; L97.929 - Non-pressure chronic ulcer of unspecified part of left lower leg with unspecified severity (3) Unable to ambulate Code(s): R26.2 - DIFFICULTY IN WALKING, NOT ELSEWHERE CLASSIFIED (4) NOVA (acute kidney injury) Code(s): N17.9 - ACUTE KIDNEY FAILURE, UNSPECIFIED (5) Acute renal failure Code(s): N17.9 - ACUTE KIDNEY FAILURE, UNSPECIFIED (6) Afib Code(s): I48.91 - UNSPECIFIED ATRIAL FIBRILLATION sepsis leukocytosis electrolyte abn plan' continue current mgmt check vanco level toorro continue abx wound care rest as per icu cc time 40 min
[2017-06-25 13:48] LABS: ANION GAP 8 (8-16); BLOOD UREA NITROGEN 19 mg/dL (7-18); CALCIUM 7.9 mg/dL (8.5-10.1); CHLORIDE 110 mmol/L (98-107); CO2 24 mmol/L (21-32); CREATININE 0.7 mg/dL (0.55-1.02); GLUCOSE,RANDOM 81 mg/dL (74-106); POTASSIUM 3.6 mmol/L (3.5-5.1); SODIUM 142 mmol/L (136-145)
[2017-06-25] MEDS: NOREPINEPHRINE BITARTRATE 8,000 MCG in SODIUM CHLORIDE 492 ML IV SCH (14:28)
[2017-06-25] MEDS: COLLAGENASE CLOSTRIDIUM HIST. 30 GRAMS TUBE TP SCH (14:29)
--- NOTE | 2017-06-25 14:46 | PN ---
Progress Note, Physician History of Present Illness: Pt seen and examined at bedside. She is awake and alert. She denies shortness of breath. - Current Medication List Current Medications: Active Medications Albuterol/Ipratropium (Duoneb -) 1 amp NEB Q4H PRN PRN Reason: SHORTNESS OF BREATH Apixaban (Eliquis -) 5 mg PO BID [facility] Last Admin: 06/25/17 09:14 Dose: 5 mg Artificial Tears (Artificial Tears) 1 drop OU TID [facility] Last Admin: 06/25/17 06:43 Dose: 1 drop Budesonide/Formoterol Fumarate (Symbicort 80/4.5mcg -) 2 puff IH BID [facility] Last Admin: 06/24/17 21:20 Dose: 2 puff Chlorhexidine Gluconate (Hibiclens For Decolonization -) 1 applic TP HS [facility] Last Admin: 06/24/17 21:15 Dose: 1 applic Collagenase (Santyl -) 1 applic TP DAILY [facility] Last Admin: 06/25/17 14:29 Dose: 1 applic Fentanyl (Sublimaze Injection -) 25 mcg IVPUSH [id number] PRN PRN Reason: PAIN-PACU ORDER X 4 DOSES ONLY Meropenem (Merrem (Restricted To Id) -) 500 mg in 10 mls @ 120 mls/hr IVPUSH BID [facility] Last Admin: 06/25/17 09:12 Dose: 120 mls/hr Vancomycin HCl 750 mg/ (Dextrose) 250 mls @ 250 mls/hr IVPB Q24H [facility] PRN Reason: Protocol Last Admin: 06/24/17 16:26 Dose: 250 mls/hr Insulin Aspart (Novolog Vial Sliding Scale -) 1 vial SQ ACHS [facility] PRN Reason: Protocol Last Admin: 06/25/17 12:00 Dose: Not Given Insulin Detemir (Levemir Vial) 20 units SQ AM [facility] Midodrine (Proamatine -) 5 mg PO TID-MID [facility] Last Admin: 06/25/17 09:41 Dose: 5 mg Morphine Sulfate (Morphine Injection -) 4 mg IVPUSH Q6H PRN PRN Reason: PAIN LEVEL 4 - 6 Ondansetron HCl (Zofran Injection) 4 mg IVPB Q6H PRN PRN Reason: NAUSEA Ondansetron HCl (Zofran Injection) 4 mg IVPUSH Q6H PRN PRN Reason: NAUSEA AND/OR VOMITING - Objective Vital Signs: Vital Signs Temperature 98.6 F 06/25/17 13:55 Pulse Rate 94 H 06/25/17 13:55 Respiratory Rate 20 06/25/17 13:55 Blood Pressure 105/62 06/25/17 13:55 O2 Sat by Pulse Oximetry (%) 98 06/25/17 09:00 Constitutional: Yes: Calm Eyes: Yes: Conjunctiva Clear HENT: Yes: Atraumatic Cardiovascular: Yes: S1, S2 Respiratory: Yes: CTA Bilaterally Gastrointestinal: Yes: Soft, Abdomen, Obese Genitourinary: Yes: Cuevas Present Musculoskeletal: Yes: Muscle Weakness Edema: Yes Edema: LLE: 1+, RLE: 1+ Neurological: Yes: Oriented Psychiatric: Yes: Oriented Labs: CBC, BMP 06/25/17 05:50 06/25/17 13:00 INR, PTT INR 1.16 (0.82-1.09) H 06/18/17 20:30 - ....Imaging Chest X-ray: Report Reviewed Problem List - Problems (1) Hyperkalemia Code(s): E87.5 - HYPERKALEMIA (2) Ulcers of both lower extremities Code(s): L97.919 - NON-PRS CHRONIC ULC UNSP PRT OF R LOW LEG W UNSP SEVERITY; L97.929 - NON-PRS CHRONIC ULC UNSP PRT OF L LOW LEG W UNSP SEVERITY Qualifiers: Non-pressure ulcer stage: unspecified non-pressure ulcer stage Qualified Code(s): L97.919 - Non-pressure chronic ulcer of unspecified part of right lower leg with unspecified severity; L97.929 - Non-pressure chronic ulcer of unspecified part of left lower leg with unspecified severity; L97.929 - Non- pressure chronic ulcer of unspecified part of left lower leg with unspecified severity; L97.929 - Non-pressure chronic ulcer of unspecified part of left lower leg with unspecified severity; L97.929 - Non-pressure chronic ulcer of unspecified part of left lower leg with unspecified severity (3) Unable to ambulate Code(s): R26.2 - DIFFICULTY IN WALKING, NOT ELSEWHERE CLASSIFIED (4) NOVA (acute kidney injury) Code(s): N17.9 - ACUTE KIDNEY FAILURE, UNSPECIFIED (5) Acute renal failure Code(s): N17.9 - ACUTE KIDNEY FAILURE, UNSPECIFIED (6) Afib Code(s): I48.91 - UNSPECIFIED ATRIAL FIBRILLATION Assessment/Plan Current Medications Generic Name Dose Route Start Last Admin Trade Name Freq PRN Reason Stop Dose Admin Albuterol/Ipratropium 1 amp 06/20/17 15:01 Duoneb - NEB Q4H PRN SHORTNESS OF BREATH Apixaban 5 mg 06/24/17 22:00 06/25/17 09:14 Eliquis - PO 5 mg BID [facility] Administration Artificial Tears 1 drop 06/22/17 22:00 06/25/17 06:43 Artificial Tears OU 1 drop TID [facility] Administration Budesonide/Formoterol Fumarate 2 puff 06/21/17 11:00 06/24/17 21:20 Symbicort 80/4.5mcg - IH 2 puff BID [facility] Administration Chlorhexidine Gluconate 1 applic 06/20/17 22:00 06/24/17 21:15 Hibiclens For Decolonization - TP 1 applic HS [facility] Administration Collagenase 1 applic 06/26/17 10:00 06/25/17 14:29 Santyl - TP 1 applic DAILY [facility] Administration Fentanyl 25 mcg 06/20/17 15:01 Sublimaze Injection - IVPUSH [id number] PRN PAIN-PACU ORDER X 4 DOSES ONLY Meropenem 500 mg in 10 mls @ 120 mls/hr 06/20/17 22:00 06/25/17 09:12 Merrem (Restricted To Id) - IVPUSH 120 mls/hr BID [facility] Administration Vancomycin HCl 750 mg/ 250 mls @ 250 mls/hr 06/21/17 16:00 06/24/17 16:26 Dextrose IVPB 250 mls/hr Q24H [facility] Administration Protocol Insulin Aspart 1 vial 06/20/17 16:30 06/25/17 12:00 Novolog Vial Sliding Scale - SQ Not Given ACHS [facility] Protocol Insulin Detemir 20 units 06/25/17 10:40 Levemir Vial SQ AM [facility] Midodrine 5 mg 06/24/17 10:00 06/25/17 09:41 Proamatine - PO 5 mg TID-MID [facility] Administration Morphine Sulfate 4 mg 06/21/17 11:57 Morphine Injection - IVPUSH Q6H PRN PAIN LEVEL 4 - 6 Ondansetron HCl 4 mg 06/20/17 15:01 Zofran Injection IVPB Q6H PRN NAUSEA Ondansetron HCl 4 mg 06/20/17 15:01 Zofran Injection IVPUSH Q6H PRN NAUSEA AND/OR VOMITING Impression 1. NOVA 2. hyperkalemia resolved 3. obesity 4. DM 5. a-fib 6. HTN 7. chronic lower extremity ulcers 8. gastritis 9. sepsis 10. hyponatremia 11. hypokalemia Plan - monitor renal function - d/c cuevas - d/c fluids - replace potassium - monitor blood pressure - midodrine trial - will follow - avoid nsaids Dr Epstein
[2017-06-25] MEDS: VANCOMYCIN 750 MG in DEXTROSE 5%-WATER - 250 ML IVPB SCH (16:44)
[2017-06-25] MEDS ORDERED: dilTIAZem HCL 50 MG/10 ML - 10 ML VIAL ONE (19:24)
[2017-06-25] MEDS ORDERED: dilTIAZem HCL 30 MG TABLET (FP) PO ONE (19:25)
[2017-06-25] MEDS ORDERED: dilTIAZem HCL 50 MG/10 ML - 10 ML VIAL IVPUSH ONE (19:30)
[2017-06-25] MEDS: CHLORHEXIDINE GLUCONATE 4% CLEANSER FOR DECOLONIZATION TP SCH (22:12)
[2017-06-25] MEDS: PANTOPRAZOLE 40 MG TABLET (FP) PO SCH (22:12)
[2017-06-26] MEDS ORDERED: ACETAMINOPHEN 325 MG TABLET (FP) ONE (02:21)
[2017-06-26] MEDS ORDERED: HEMOQUE CONTROL SOLUTION ONE (04:28)
[2017-06-26] MEDS ORDERED: HEMOQUE TEST 1 EACH EACH ONE (04:30)
[2017-06-26 05:44] LABS: EOS % 4.9 % (0-4.5); HEMATOCRIT 25.5 % (32.4-45.2); HEMOGLOBIN 8.2 GM/dL (10.7-15.3); LYMPH % 6.6 % (8-40); MCH 27.1 pg (25.7-33.7); MEAN CELL VOLUME 84.7 fl (80-96); MEAN PLT VOLUME 9.6 fl (7.5-11.1); MONO % 6.9 % (3.8-10.2); NEUT % 80.6 % (42.8-82.8); PLATELET COUNT 242 K/MM3 (134-434); RBC 3.02 M/mm3 (3.60-5.2); RDW 14.3 % (11.6-15.6); WHITE BLOOD COUNT 10.5 K/mm3 (4.0-10.0)
[2017-06-26] MEDS ORDERED: ACETAMINOPHEN 1000 MG/100 ML VIAL (NON FORMULARY) IVPB PRN (05:59)
[2017-06-26 06:04] LABS: ALBUMIN 1.5 g/dl (3.4-5.0); ALK PHOS 74 U/L (45-117); ANION GAP 8 (8-16); BILIRUBIN,TOTAL 0.2 mg/dL (0.2-1.0); BLOOD UREA NITROGEN 18 mg/dL (7-18); CALCIUM 7.7 mg/dL (8.5-10.1); CHLORIDE 110 mmol/L (98-107); CO2 24 mmol/L (21-32); CREATININE 0.8 mg/dL (0.55-1.02); GLUCOSE,RANDOM 120 mg/dL (74-106); MAGNESIUM 1.8 mg/dL (1.8-2.4); PHOSPHOROUS 2.4 mg/dL (2.5-4.9); POTASSIUM 3.4 mmol/L (3.5-5.1); SGOT/AST 10 U/L (15-37); SGPT/ALT 18 U/L (12-78); SODIUM 142 mmol/L (136-145); TOT PROT 4.5 g/dl (6.4-8.2)
[2017-06-26] MEDS: INSULIN SLIDING SCALE (NOVOLOG) 1 VIAL SQ SCH ×4 (06:20→21:27)
[2017-06-26] MEDS: ARTIFICIAL TEARS (POLYVINYL ALCOHOL 1.4%) OPTH DROPS OU SCH ×3 (06:21→21:21)
[2017-06-26] MEDS ORDERED: ACETAMINOPHEN 325 MG TABLET (FP) PO PRN (07:08)
[2017-06-26] MEDS: INSULIN DETEMIR 100 UNITS/ML MDV SQ SCH (07:30)
[2017-06-26] MEDS ORDERED: PT OWN MED DRAWER 7, Y5N ONE ×3 (09:07→21:26)
[2017-06-26] MEDS: PANTOPRAZOLE 40 MG TABLET (FP) PO SCH (09:09)
[2017-06-26] MEDS: APIXABAN 5 MG TABLET PO SCH ×2 (09:09→21:26)
[2017-06-26] MEDS: MIDODRINE HCL 5 MG TABLET PO SCH ×3 (09:10→17:55)
--- NOTE | 2017-06-26 09:55 | PN ---
Progress Note, Physician - Current Medication List Current Medications: Active Medications Acetaminophen (Tylenol -) 650 mg PO Q6H PRN PRN Reason: PAIN LEVEL 1-5 Last Admin: 06/26/17 07:34 Dose: 650 mg Albuterol/Ipratropium (Duoneb -) 1 amp NEB Q4H PRN PRN Reason: SHORTNESS OF BREATH Apixaban (Eliquis -) 5 mg PO BID [facility] Last Admin: 06/26/17 09:09 Dose: 5 mg Artificial Tears (Artificial Tears) 1 drop OU TID [facility] Last Admin: 06/26/17 06:21 Dose: 1 drop Budesonide/Formoterol Fumarate (Symbicort 80/4.5mcg -) 2 puff IH BID [facility] Last Admin: 06/25/17 22:12 Dose: 2 puff Chlorhexidine Gluconate (Hibiclens For Decolonization -) 1 applic TP HS [facility] Last Admin: 06/25/17 22:12 Dose: 1 applic Collagenase (Santyl -) 1 applic TP DAILY [facility] Last Admin: 06/25/17 14:29 Dose: 1 applic Vancomycin HCl 750 mg/ (Dextrose) 250 mls @ 250 mls/hr IVPB Q24H [facility] PRN Reason: Protocol Last Admin: 06/25/17 16:44 Dose: 250 mls/hr Ertapenem 1 gm/ Sodium (Chloride) 100 mls @ 200 mls/hr IVPB DAILY [facility] PRN Reason: Protocol Insulin Aspart (Novolog Vial Sliding Scale -) 1 vial SQ ACHS [facility] PRN Reason: Protocol Last Admin: 06/26/17 06:20 Dose: Not Given Insulin Detemir (Levemir Vial) 20 units SQ AM [facility] Last Admin: 06/26/17 07:30 Dose: 20 units Midodrine (Proamatine -) 5 mg PO TID-MID [facility] Last Admin: 06/26/17 09:10 Dose: 5 mg Ondansetron HCl (Zofran Injection) 4 mg IVPB Q6H PRN PRN Reason: NAUSEA Ondansetron HCl (Zofran Injection) 4 mg IVPUSH Q6H PRN PRN Reason: NAUSEA AND/OR VOMITING Pantoprazole Sodium (Protonix -) 40 mg PO DAILY [facility] Last Admin: 06/26/17 09:09 Dose: 40 mg Potassium Chloride (K-Dur -) 20 meq PO ONCE ONE Stop: 06/26/17 09:42 - Objective Vital Signs: Vital Signs Temperature 98.8 F 06/26/17 06:00 Pulse Rate 92 H 06/26/17 08:00 Respiratory Rate 21 06/26/17 08:56 Blood Pressure 100/62 06/26/17 08:00 O2 Sat by Pulse Oximetry (%) 98 06/26/17 08:56 Cardiovascular: Yes: S1, S2 Respiratory: Yes: Regular, CTA Bilaterally, On Nasal O2 Gastrointestinal: Yes: Normal Bowel Sounds, Soft Wound/Incision: Yes: Dressing Dry and Intact Labs: CBC, BMP 06/26/17 05:15 06/26/17 05:15 INR, PTT INR 1.16 (0.82-1.09) H 06/18/17 20:30 Problem List - Problems (1) Sepsis Code(s): A41.9 - SEPSIS, UNSPECIFIED ORGANISM Qualifiers: Sepsis type: sepsis due to unspecified organism Qualified Code(s): A41.9 - Sepsis, unspecified organism (2) Altered mental status Code(s): R41.82 - ALTERED MENTAL STATUS, UNSPECIFIED (3) Ulcers of both lower extremities Code(s): L97.919 - NON-PRS CHRONIC ULC UNSP PRT OF R LOW LEG W UNSP SEVERITY; L97.929 - NON-PRS CHRONIC ULC UNSP PRT OF L LOW LEG W UNSP SEVERITY Qualifiers: Non-pressure ulcer stage: unspecified non-pressure ulcer stage Qualified Code(s): L97.919 - Non-pressure chronic ulcer of unspecified part of right lower leg with unspecified severity; L97.929 - Non-pressure chronic ulcer of unspecified part of left lower leg with unspecified severity; L97.929 - Non- pressure chronic ulcer of unspecified part of left lower leg with unspecified severity; L97.929 - Non-pressure chronic ulcer of unspecified part of left lower leg with unspecified severity; L97.929 - Non-pressure chronic ulcer of unspecified part of left lower leg with unspecified severity (4) Afib Code(s): I48.91 - UNSPECIFIED ATRIAL FIBRILLATION (5) DM2 (diabetes mellitus, type 2) Code(s): E11.9 - TYPE 2 DIABETES MELLITUS WITHOUT COMPLICATIONS Qualifiers: Diabetes mellitus complication detail: with other circulatory complications (6) Renal failure (ARF), acute on chronic Code(s): N17.9 - ACUTE KIDNEY FAILURE, UNSPECIFIED; N18.9 - CHRONIC KIDNEY DISEASE, UNSPECIFIED Assessment/Plan - Problems (1) Electrolyte abnormality Assessment/Plan: K and Mag repleted will recheck Code(s): E87.8 - OTH DISORDERS OF ELECTROLYTE AND FLUID BALANCE, NEC (2) Leukocytosis Assessment/Plan: ID on board on iv abx-meropenem culture sent Microbiology 06/22/17 01:00 Blood - Central Line Blood Culture - Preliminary NO GROWTH OBTAINED AFTER 48 HOURS, INCUBATION TO CONTINUE FOR 3 DAYS. 06/22/17 00:30 Blood - Central Line Blood Culture - Preliminary NO GROWTH OBTAINED AFTER 48 HOURS, INCUBATION TO CONTINUE FOR 3 DAYS. wbc trending down Code(s): D72.829 - ELEVATED WHITE BLOOD CELL COUNT, UNSPECIFIED (3) Ulcers of both lower extremities Assessment/Plan: seen by vascular s/p debridement wound care per vascular Code(s): L97.919 - NON-PRS CHRONIC ULC UNSP PRT OF R LOW LEG W UNSP SEVERITY; L97.929 - NON-PRS CHRONIC ULC UNSP PRT OF L LOW LEG W UNSP SEVERITY Qualifiers: Non-pressure ulcer stage: unspecified non-pressure ulcer stage Qualified Code(s): L97.919 - Non-pressure chronic ulcer of unspecified part of right lower leg with unspecified severity; L97.929 - Non-pressure chronic ulcer of unspecified part of left lower leg with unspecified severity; L97.929 - Non- pressure chronic ulcer of unspecified part of left lower leg with unspecified severity; L97.929 - Non-pressure chronic ulcer of unspecified part of left lower leg with unspecified severity; L97.929 - Non-pressure chronic ulcer of unspecified part of left lower leg with unspecified severity (4) Hyperkalemia Assessment/Plan: improved-resolved Code(s): E87.5 - HYPERKALEMIA (5) NOVA (acute kidney injury) Assessment/Plan: resolved making urine no more HD need bun/cr much improved and now normal Code(s): N17.9 - ACUTE KIDNEY FAILURE, UNSPECIFIED (6) Afib Assessment/Plan: on eliquis bid Code(s): I48.91 - UNSPECIFIED ATRIAL FIBRILLATION (7) DM2 (diabetes mellitus, type 2) Assessment/Plan: dc night time levemir given the low bgm in AM decrease AM levemir to 20 units Code(s): E11.9 - TYPE 2 DIABETES MELLITUS WITHOUT COMPLICATIONS Qualifiers: Diabetes mellitus complication detail: with other circulatory complications
[2017-06-26] MEDS: BUDESONIDE/FORMETEROL FUMARATE 80/4.5 mcg INHALER IH SCH ×2 (11:00→21:21)
[2017-06-26] MEDS: COLLAGENASE CLOSTRIDIUM HIST. 30 GRAMS TUBE TP SCH (11:08)
[2017-06-26] MEDS: ERTAPENEM SODIUM 1 GM in SODIUM CHLORIDE 100 ML IVPB SCH (11:08)
[2017-06-26] MEDS: traMADol HCL 50 MG TABLET PO PRN ×2 (11:31→17:00)
--- NOTE | 2017-06-26 11:42 | PN ---
Teaching Attending Note Name of Resident: Hazel Perez ATTENDING PHYSICIAN STATEMENT I saw and evaluated the patient. I reviewed the resident's note and discussed the case with the resident. I agree with the resident's findings and plan as documented. SUBJECTIVE: Pt seen and examined in the ICU. Denies fevers, chills. No shortness of breath or chest pain. Off pressors, blood pressure borderline. Still with leg pain. OBJECTIVE: Last Vital Signs Temp Pulse Resp BP Pulse Ox 98.9 F 90 22 90/66 98 06/26/17 09:56 06/26/17 09:56 06/26/17 09:56 06/26/17 09:56 06/26/17 08:56 Intake & Output 06/23/17 06/24/17 06/25/17 06/26/17 23:59 23:59 23:59 23:59 Intake Total 3187.6 2384 1290 Output Total 1400 1200 1250 400 Balance 1787.6 1184 40 -400 Weight 122.379 kg 127.777 kg 128.2 kg Gen: mildly tachypneic at rest Heart: RRR Lung: decreased breath sounds at the bases Abd: soft, nontender Ext: dressings with drainage CBC, BMP 06/26/17 05:15 06/26/17 05:15 Active Medications Acetaminophen (Tylenol -) 650 mg PO Q6H PRN PRN Reason: PAIN LEVEL 1-5 Last Admin: 06/26/17 07:34 Dose: 650 mg Apixaban (Eliquis -) 5 mg PO BID [facility] Last Admin: 06/26/17 09:09 Dose: 5 mg Artificial Tears (Artificial Tears) 1 drop OU TID [facility] Last Admin: 06/26/17 06:21 Dose: 1 drop Budesonide/Formoterol Fumarate (Symbicort 80/4.5mcg -) 2 puff IH BID [facility] Last Admin: 06/26/17 11:00 Dose: 2 puff Chlorhexidine Gluconate (Hibiclens For Decolonization -) 1 applic TP HS [facility] Last Admin: 06/25/17 22:12 Dose: 1 applic Collagenase (Santyl -) 1 applic TP DAILY [facility] Last Admin: 06/26/17 11:08 Dose: 1 applic Vancomycin HCl 750 mg/ (Dextrose) 250 mls @ 250 mls/hr IVPB Q24H [facility] PRN Reason: Protocol Last Admin: 06/25/17 16:44 Dose: 250 mls/hr Ertapenem 1 gm/ Sodium (Chloride) 100 mls @ 200 mls/hr IVPB DAILY [facility] PRN Reason: Protocol Last Admin: 06/26/17 11:08 Dose: 200 mls/hr Insulin Aspart (Novolog Vial Sliding Scale -) 1 vial SQ ACHS [facility] PRN Reason: Protocol Last Admin: 06/26/17 11:37 Dose: 4 units Insulin Detemir (Levemir Vial) 20 units SQ AM [facility] Last Admin: 06/26/17 07:30 Dose: 20 units Midodrine (Proamatine -) 5 mg PO TID-MID [facility] Last Admin: 06/26/17 09:10 Dose: 5 mg Ondansetron HCl (Zofran Injection) 4 mg IVPB Q6H PRN PRN Reason: NAUSEA Ondansetron HCl (Zofran Injection) 4 mg IVPUSH Q6H PRN PRN Reason: NAUSEA AND/OR VOMITING Pantoprazole Sodium (Protonix -) 40 mg PO DAILY [facility] Last Admin: 06/26/17 09:09 Dose: 40 mg Potassium Chloride (K-Dur -) 20 meq PO ONCE ONE Stop: 06/26/17 11:46 Last Admin: 06/26/17 11:32 Dose: 20 meq Tramadol HCl (Ultram -) 50 mg PO Q6H PRN PRN Reason: PAIN LEVEL 4 - 6 Last Admin: 06/26/17 11:31 Dose: 50 mg ASSESSMENT AND PLAN: Cellulitis/r/o Leg Abscesses s/p Debridement Septic Shock Acute on Chronic Renal Failure Lactic Acidosis resolved Atrial Fibrillation Uncontrolled DM - continue antibiotics - wound care - O2 to keep SpO2 >90% - BiPAP as needed to assist in work of breathing - monitor urine output, creatinine - replete and monitor lytes - off pressors, on midodrine, maintain MAP >65 - glucose control - rate control - continue anticoagulation - aspiration precautions - PO as tolerated - DVT prophylaxis - continue ICU monitoring for now critical care time spent in reviewing chart, evaluating patient and formulating plan 35 min
[2017-06-26] MEDS ORDERED: POTASSIUM CHLORIDE TABS 20 MEQ TABLET.ER (FP) PO ONE (11:45)
--- NOTE | 2017-06-26 13:18 | PN ---
Physical Exam: SUBJECTIVE: Patient seen and examined. She is complaining of pain in the legs. No other complaints. Overnight she had A.Fib recorded on monitor and was given Cardizem pushes. OBJECTIVE: Vital Signs Period Temp Pulse Resp BP Sys/Callahan Pulse Ox Last 24 Hr 98.2 F-98.9 F 90-149 20-27 88-107/42-72 98-98 GENERAL: The patient is awake, alert, and fully oriented, in no acute distress. HEAD: Normal with no signs of trauma. EYES: extraocular movements intact, sclera anicteric, conjunctiva clear ENT: oropharynx clear without exudates, moist mucous membranes NECK: full range of motion, supple. LUNGS: clear to auscultation bilaterally, no wheezes, no crackles, no accessory muscle use HEART: Regular rate and rhythm, S1, S2 without murmur, rub or gallop. ABDOMEN: Soft, nontender, nondistended, normoactive bowel sounds, no guarding, no rebound, no hepatosplenomegaly, no masses. EXTREMITIES: 2+ pulses, warm, no edema. NEUROLOGICAL: Normal speech, no facial asymmetry, gait not observed. PSYCH: Normal mood, normal affect. SKIN: Warm, dry, normal turgor, dressings applied in LE. Laboratory Results - last 24 hr 06/25/17 06/25/17 06/26/17 13:00 17:00 05:15 WBC 10.5 H RBC 3.02 L Hgb 8.2 L Hct 25.5 L MCV 84.7 MCH 27.1 MCHC 32.0 RDW 14.3 Plt Count 242 MPV 9.6 Neutrophils % 80.6 Lymphocytes % 6.6 L D Monocytes % 6.9 D Eosinophils % 4.9 H Basophils % 1.0 Sodium 142 Potassium 3.6 Chloride 110 H Carbon Dioxide 24 Anion Gap 8 BUN 19 H Creatinine 0.7 Creat Clearance w eGFR Random Glucose 81 Calcium 7.9 L Phosphorus Magnesium Total Bilirubin AST ALT Alkaline Phosphatase Total Protein Albumin Stool Occult Blood Negative 06/26/17 05:15 WBC RBC Hgb Hct MCV MCH MCHC RDW Plt Count MPV Neutrophils % Lymphocytes % Monocytes % Eosinophils % Basophils % Sodium 142 Potassium 3.4 L Chloride 110 H Carbon Dioxide 24 Anion Gap 8 BUN 18 Creatinine 0.8 Creat Clearance w eGFR > 60 Random Glucose 120 H Calcium 7.7 L Phosphorus 2.4 L Magnesium 1.8 Total Bilirubin 0.2 D AST 10 L ALT 18 Alkaline Phosphatase 74 Total Protein 4.5 L Albumin 1.5 L Stool Occult Blood Active Medications Generic Name Dose Route Start Last Admin Trade Name Freq PRN Reason Stop Dose Admin Acetaminophen 650 mg 06/26/17 07:08 06/26/17 07:34 Tylenol - PO 650 mg Q6H PRN Administration PAIN LEVEL 1-5 Apixaban 5 mg 06/24/17 22:00 06/26/17 09:09 Eliquis - PO 5 mg BID [facility] Administration Artificial Tears 1 drop 06/22/17 22:00 06/26/17 06:21 Artificial Tears OU 1 drop TID [facility] Administration Budesonide/Formoterol Fumarate 2 puff 06/21/17 11:00 06/26/17 11:00 Symbicort 80/4.5mcg - IH 2 puff BID [facility] Administration Chlorhexidine Gluconate 1 applic 06/20/17 22:00 06/25/17 22:12 Hibiclens For Decolonization - TP 1 applic HS [facility] Administration Collagenase 1 applic 06/26/17 10:00 06/26/17 11:08 Santyl - TP 1 applic DAILY [facility] Administration Vancomycin HCl 750 mg/ 250 mls @ 250 mls/hr 06/21/17 16:00 06/25/17 16:44 Dextrose IVPB 250 mls/hr Q24H [facility] Administration Protocol Ertapenem 1 gm/ Sodium 100 mls @ 200 mls/hr 06/26/17 10:00 06/26/17 11:08 Chloride IVPB 200 mls/hr DAILY [facility] Administration Protocol Insulin Aspart 1 vial 06/20/17 16:30 06/26/17 11:37 Novolog Vial Sliding Scale - SQ 4 units ACHS [facility] Administration Protocol Insulin Detemir 20 units 06/25/17 10:40 06/26/17 07:30 Levemir Vial SQ 20 units AM [facility] Administration Midodrine 5 mg 06/24/17 10:00 06/26/17 09:10 Proamatine - PO 5 mg TID-MID [facility] Administration Ondansetron HCl 4 mg 06/20/17 15:01 Zofran Injection IVPB Q6H PRN NAUSEA Ondansetron HCl 4 mg 06/20/17 15:01 Zofran Injection IVPUSH Q6H PRN NAUSEA AND/OR VOMITING Pantoprazole Sodium 40 mg 06/25/17 19:30 06/26/17 09:09 Protonix - PO 40 mg DAILY [facility] Administration Tramadol HCl 50 mg 06/26/17 10:30 06/26/17 11:31 Ultram - PO 50 mg Q6H PRN Administration PAIN LEVEL 4 - 6 ASSESSMENT/PLAN: The patient is a 52 year old female with a history of DM, afib, gastritis, cellulitis who was admitted for septic shock, acute kidney failure on CKD requiring emergent dialysis, s/p LE wound debridement. NEURO Patient is alert and oriented x3 -continue to monitor CV Septic Shock, with lactic acidosis and hypotension Continue midodrine now off pressors and stable, hypotensive today hold anti BP home meds RESP Respiratory distress currently off bipap, duonebs DC continue to monitor GI No Issues currently diabetic/low sodium, added glucerna today Heme H/H stable, will monitor on Eliquis for anticoagulation Renal NOVA; BUN/Cr 18/0.8, improved, no need for dialysis no fluids, cuevas removed, will continue following Dr Epstein's recommendations hypokalemia 3.4 repleated today ID Sepsis-secondary to the patient's cellulitis and lower extremity wounds, s/p debridement, f/u wound care no fever, pain is well controlled with Tramadol continue Vancomycin daily and Meropenem blood cultures negative FEN no fluids/low K/low Na/diabetic diet PPX -Eliquis DISPO: Stable for floor monitoring tomorrow. Problem List - Problems (1) Altered mental status Code(s): R41.82 - ALTERED MENTAL STATUS, UNSPECIFIED (2) Electrolyte abnormality Code(s): E87.8 - OTH DISORDERS OF ELECTROLYTE AND FLUID BALANCE, NEC (3) Hyperkalemia Code(s): E87.5 - HYPERKALEMIA (4) Renal failure (ARF), acute on chronic Code(s): N17.9 - ACUTE KIDNEY FAILURE, UNSPECIFIED; N18.9 - CHRONIC KIDNEY DISEASE, UNSPECIFIED (5) Ulcers of both lower extremities Code(s): L97.919 - NON-PRS CHRONIC ULC UNSP PRT OF R LOW LEG W UNSP SEVERITY; L97.929 - NON-PRS CHRONIC ULC UNSP PRT OF L LOW LEG W UNSP SEVERITY Qualifiers: Non-pressure ulcer stage: unspecified non-pressure ulcer stage Qualified Code(s): L97.919 - Non-pressure chronic ulcer of unspecified part of right lower leg with unspecified severity; L97.929 - Non-pressure chronic ulcer of unspecified part of left lower leg with unspecified severity; L97.929 - Non- pressure chronic ulcer of unspecified part of left lower leg with unspecified severity; L97.929 - Non-pressure chronic ulcer of unspecified part of left lower leg with unspecified severity; L97.929 - Non-pressure chronic ulcer of unspecified part of left lower leg with unspecified severity (6) Unable to ambulate Code(s): R26.2 - DIFFICULTY IN WALKING, NOT ELSEWHERE CLASSIFIED (7) NOVA (acute kidney injury) Code(s): N17.9 - ACUTE KIDNEY FAILURE, UNSPECIFIED (8) Afib Code(s): I48.91 - UNSPECIFIED ATRIAL FIBRILLATION (9) Cellulitis Code(s): L03.90 - CELLULITIS, UNSPECIFIED Qualifiers: Site of cellulitis of extremity: lower extremity Laterality: right (10) DM2 (diabetes mellitus, type 2) Code(s): E11.9 - TYPE 2 DIABETES MELLITUS WITHOUT COMPLICATIONS Qualifiers: Diabetes mellitus complication detail: with other circulatory complications (11) Electrolyte abnormality Code(s): E87.8 - OTH DISORDERS OF ELECTROLYTE AND FLUID BALANCE, NEC (12) Fever Code(s): R50.9 - FEVER, UNSPECIFIED (13) Hyperglycemia Code(s): R73.9 - HYPERGLYCEMIA, UNSPECIFIED (14) Leukocytosis Code(s): D72.829 - ELEVATED WHITE BLOOD CELL COUNT, UNSPECIFIED Visit type - Emergency Visit Emergency Visit: Yes ED Registration Date: 06/18/17 Care time: The patient presented to the Emergency Department on the above date and was hospitalized for further evaluation of their emergent condition. - New Patient This patient is new to me today: No - Critical Care Critical Care patient: Yes Total Critical Care Time (in minutes): 40 Critical Care Statement: The care of this patient involved high complexity decision making to prevent further life threatening deterioration of the patient 's condition and/or to evaluate & treat vital organ system(s) failure or risk of failure.
--- NOTE | 2017-06-26 13:22 | PN ---
Progress Note, Physician History of Present Illness: Pt seen and examined at bedside. She remains hypotensive. - Current Medication List Current Medications: Active Medications Acetaminophen (Tylenol -) 650 mg PO Q6H PRN PRN Reason: PAIN LEVEL 1-5 Last Admin: 06/26/17 07:34 Dose: 650 mg Apixaban (Eliquis -) 5 mg PO BID [facility] Last Admin: 06/26/17 09:09 Dose: 5 mg Artificial Tears (Artificial Tears) 1 drop OU TID [facility] Last Admin: 06/26/17 06:21 Dose: 1 drop Budesonide/Formoterol Fumarate (Symbicort 80/4.5mcg -) 2 puff IH BID [facility] Last Admin: 06/26/17 11:00 Dose: 2 puff Chlorhexidine Gluconate (Hibiclens For Decolonization -) 1 applic TP HS [facility] Last Admin: 06/25/17 22:12 Dose: 1 applic Collagenase (Santyl -) 1 applic TP DAILY [facility] Last Admin: 06/26/17 11:08 Dose: 1 applic Vancomycin HCl 750 mg/ (Dextrose) 250 mls @ 250 mls/hr IVPB Q24H [facility] PRN Reason: Protocol Last Admin: 06/25/17 16:44 Dose: 250 mls/hr Ertapenem 1 gm/ Sodium (Chloride) 100 mls @ 200 mls/hr IVPB DAILY [facility] PRN Reason: Protocol Last Admin: 06/26/17 11:08 Dose: 200 mls/hr Insulin Aspart (Novolog Vial Sliding Scale -) 1 vial SQ ACHS [facility] PRN Reason: Protocol Last Admin: 06/26/17 11:37 Dose: 4 units Insulin Detemir (Levemir Vial) 20 units SQ AM [facility] Last Admin: 06/26/17 07:30 Dose: 20 units Midodrine (Proamatine -) 5 mg PO TID-MID [facility] Last Admin: 06/26/17 09:10 Dose: 5 mg Ondansetron HCl (Zofran Injection) 4 mg IVPB Q6H PRN PRN Reason: NAUSEA Ondansetron HCl (Zofran Injection) 4 mg IVPUSH Q6H PRN PRN Reason: NAUSEA AND/OR VOMITING Pantoprazole Sodium (Protonix -) 40 mg PO DAILY [facility] Last Admin: 06/26/17 09:09 Dose: 40 mg Tramadol HCl (Ultram -) 50 mg PO Q6H PRN PRN Reason: PAIN LEVEL 4 - 6 Last Admin: 06/26/17 11:31 Dose: 50 mg - Objective Vital Signs: Vital Signs Temperature 98.9 F 06/26/17 09:56 Pulse Rate 98 H 06/26/17 12:00 Respiratory Rate 26 H 06/26/17 12:00 Blood Pressure 101/56 06/26/17 12:00 O2 Sat by Pulse Oximetry (%) 98 06/26/17 08:56 Constitutional: Yes: Calm Eyes: Yes: Conjunctiva Clear HENT: Yes: Atraumatic Neck: Yes: Supple Cardiovascular: Yes: S1, S2 Respiratory: Yes: CTA Bilaterally Gastrointestinal: Yes: Soft, Abdomen, Obese Genitourinary: Yes: Incontinence Musculoskeletal: Yes: Muscle Weakness Edema: Yes Edema: LLE: 1+, RLE: 1+ Neurological: Yes: Oriented Psychiatric: Yes: Oriented Labs: CBC, BMP 06/26/17 05:15 06/26/17 05:15 INR, PTT INR 1.16 (0.82-1.09) H 06/18/17 20:30 Problem List - Problems (1) Hyperkalemia Code(s): E87.5 - HYPERKALEMIA (2) Ulcers of both lower extremities Code(s): L97.919 - NON-PRS CHRONIC ULC UNSP PRT OF R LOW LEG W UNSP SEVERITY; L97.929 - NON-PRS CHRONIC ULC UNSP PRT OF L LOW LEG W UNSP SEVERITY Qualifiers: Non-pressure ulcer stage: unspecified non-pressure ulcer stage Qualified Code(s): L97.919 - Non-pressure chronic ulcer of unspecified part of right lower leg with unspecified severity; L97.929 - Non-pressure chronic ulcer of unspecified part of left lower leg with unspecified severity; L97.929 - Non- pressure chronic ulcer of unspecified part of left lower leg with unspecified severity; L97.929 - Non-pressure chronic ulcer of unspecified part of left lower leg with unspecified severity; L97.929 - Non-pressure chronic ulcer of unspecified part of left lower leg with unspecified severity (3) Unable to ambulate Code(s): R26.2 - DIFFICULTY IN WALKING, NOT ELSEWHERE CLASSIFIED (4) NOVA (acute kidney injury) Code(s): N17.9 - ACUTE KIDNEY FAILURE, UNSPECIFIED (5) Acute renal failure Code(s): N17.9 - ACUTE KIDNEY FAILURE, UNSPECIFIED (6) Afib Code(s): I48.91 - UNSPECIFIED ATRIAL FIBRILLATION Assessment/Plan Current Medications Generic Name Dose Route Start Last Admin Trade Name Freq PRN Reason Stop Dose Admin Acetaminophen 650 mg 06/26/17 07:08 06/26/17 07:34 Tylenol - PO 650 mg Q6H PRN Administration PAIN LEVEL 1-5 Apixaban 5 mg 06/24/17 22:00 06/26/17 09:09 Eliquis - PO 5 mg BID [facility] Administration Artificial Tears 1 drop 06/22/17 22:00 06/26/17 06:21 Artificial Tears OU 1 drop TID [facility] Administration Budesonide/Formoterol Fumarate 2 puff 06/21/17 11:00 06/26/17 11:00 Symbicort 80/4.5mcg - IH 2 puff BID [facility] Administration Chlorhexidine Gluconate 1 applic 06/20/17 22:00 06/25/17 22:12 Hibiclens For Decolonization - TP 1 applic HS [facility] Administration Collagenase 1 applic 06/26/17 10:00 06/26/17 11:08 Santyl - TP 1 applic DAILY [facility] Administration Vancomycin HCl 750 mg/ 250 mls @ 250 mls/hr 06/21/17 16:00 06/25/17 16:44 Dextrose IVPB 250 mls/hr Q24H [facility] Administration Protocol Ertapenem 1 gm/ Sodium 100 mls @ 200 mls/hr 06/26/17 10:00 06/26/17 11:08 Chloride IVPB 200 mls/hr DAILY [facility] Administration Protocol Insulin Aspart 1 vial 06/20/17 16:30 06/26/17 11:37 Novolog Vial Sliding Scale - SQ 4 units ACHS [facility] Administration Protocol Insulin Detemir 20 units 06/25/17 10:40 06/26/17 07:30 Levemir Vial SQ 20 units AM [facility] Administration Midodrine 5 mg 06/24/17 10:00 06/26/17 09:10 Proamatine - PO 5 mg TID-MID [facility] Administration Ondansetron HCl 4 mg 06/20/17 15:01 Zofran Injection IVPB Q6H PRN NAUSEA Ondansetron HCl 4 mg 06/20/17 15:01 Zofran Injection IVPUSH Q6H PRN NAUSEA AND/OR VOMITING Pantoprazole Sodium 40 mg 06/25/17 19:30 06/26/17 09:09 Protonix - PO 40 mg DAILY [facility] Administration Tramadol HCl 50 mg 06/26/17 10:30 06/26/17 11:31 Ultram - PO 50 mg Q6H PRN Administration PAIN LEVEL 4 - 6 Impression 1. NOVA 2. hyperkalemia resolved 3. obesity 4. DM 5. a-fib 6. HTN 7. chronic lower extremity ulcers 8. gastritis 9. sepsis 10. hyponatremia 11. hypokalemia Plan - bp remains low - cont midodrine - check cortisol level - replace potassium - monitor blood pressure - will follow - avoid nsaids Dr Epstein
--- NOTE | 2017-06-26 16:19 | PN ---
Progress Note, Physician History of Present Illness: pain main complaint dressing changed bp still labile rest no issues - Current Medication List Current Medications: Active Medications Acetaminophen (Tylenol -) 650 mg PO Q6H PRN PRN Reason: PAIN LEVEL 1-5 Last Admin: 06/26/17 07:34 Dose: 650 mg Apixaban (Eliquis -) 5 mg PO BID [facility] Last Admin: 06/26/17 09:09 Dose: 5 mg Artificial Tears (Artificial Tears) 1 drop OU TID [facility] Last Admin: 06/26/17 06:21 Dose: 1 drop Budesonide/Formoterol Fumarate (Symbicort 80/4.5mcg -) 2 puff IH BID [facility] Last Admin: 06/26/17 11:00 Dose: 2 puff Chlorhexidine Gluconate (Hibiclens For Decolonization -) 1 applic TP HS [facility] Last Admin: 06/25/17 22:12 Dose: 1 applic Collagenase (Santyl -) 1 applic TP DAILY [facility] Last Admin: 06/26/17 11:08 Dose: 1 applic Vancomycin HCl 750 mg/ (Dextrose) 250 mls @ 250 mls/hr IVPB Q24H [facility] PRN Reason: Protocol Last Admin: 06/25/17 16:44 Dose: 250 mls/hr Ertapenem 1 gm/ Sodium (Chloride) 100 mls @ 200 mls/hr IVPB DAILY [facility] PRN Reason: Protocol Last Admin: 06/26/17 11:08 Dose: 200 mls/hr Insulin Aspart (Novolog Vial Sliding Scale -) 1 vial SQ ACHS [facility] PRN Reason: Protocol Last Admin: 06/26/17 11:37 Dose: 4 units Insulin Detemir (Levemir Vial) 20 units SQ AM [facility] Last Admin: 06/26/17 07:30 Dose: 20 units Midodrine (Proamatine -) 5 mg PO TID-MID [facility] Last Admin: 06/26/17 13:38 Dose: 5 mg Ondansetron HCl (Zofran Injection) 4 mg IVPB Q6H PRN PRN Reason: NAUSEA Ondansetron HCl (Zofran Injection) 4 mg IVPUSH Q6H PRN PRN Reason: NAUSEA AND/OR VOMITING Pantoprazole Sodium (Protonix -) 40 mg PO DAILY [facility] Last Admin: 06/26/17 09:09 Dose: 40 mg Tramadol HCl (Ultram -) 50 mg PO Q6H PRN PRN Reason: PAIN LEVEL 4 - 6 Last Admin: 06/26/17 11:31 Dose: 50 mg - Objective Vital Signs: Vital Signs Temperature 98.9 F 06/26/17 09:56 Pulse Rate 96 H 06/26/17 14:00 Respiratory Rate 24 06/26/17 14:00 Blood Pressure 92/59 06/26/17 14:00 O2 Sat by Pulse Oximetry (%) 98 06/26/17 08:56 Constitutional: Yes: Calm, Mild Distress, Obese Cardiovascular: Yes: S1, S2 Respiratory: Yes: Regular, CTA Bilaterally Gastrointestinal: Yes: Normal Bowel Sounds, Soft Musculoskeletal: Yes: Other Extremities: Yes: Other Wound/Incision: Yes: Dressing Dry and Intact Neurological: Yes: Alert, Oriented Psychiatric: Yes: Alert, Oriented Labs: CBC, BMP 06/26/17 05:15 06/26/17 05:15 INR, PTT INR 1.16 (0.82-1.09) H 06/18/17 20:30 Assessment/Plan Problem List - Problems (1) Hyperkalemia Code(s): E87.5 - HYPERKALEMIA (2) Ulcers of both lower extremities Code(s): L97.919 - NON-PRS CHRONIC ULC UNSP PRT OF R LOW LEG W UNSP SEVERITY; L97.929 - NON-PRS CHRONIC ULC UNSP PRT OF L LOW LEG W UNSP SEVERITY Qualifiers: Non-pressure ulcer stage: unspecified non-pressure ulcer stage Qualified Code(s): L97.919 - Non-pressure chronic ulcer of unspecified part of right lower leg with unspecified severity; L97.929 - Non-pressure chronic ulcer of unspecified part of left lower leg with unspecified severity; L97.929 - Non- pressure chronic ulcer of unspecified part of left lower leg with unspecified severity; L97.929 - Non-pressure chronic ulcer of unspecified part of left lower leg with unspecified severity; L97.929 - Non-pressure chronic ulcer of unspecified part of left lower leg with unspecified severity (3) Unable to ambulate Code(s): R26.2 - DIFFICULTY IN WALKING, NOT ELSEWHERE CLASSIFIED (4) NOVA (acute kidney injury) Code(s): N17.9 - ACUTE KIDNEY FAILURE, UNSPECIFIED (5) Acute renal failure Code(s): N17.9 - ACUTE KIDNEY FAILURE, UNSPECIFIED (6) Afib Code(s): I48.91 - UNSPECIFIED ATRIAL FIBRILLATION sepsis leukocytosis electrolyte abn plan' continue abx wound care cx reports await for plan pain mgmt rest as per icu cc time 40 min
[2017-06-26] MEDS: VANCOMYCIN 750 MG in DEXTROSE 5%-WATER - 250 ML IVPB SCH (16:30)
--- NOTE | 2017-06-26 20:41 | CONS ---
DATE OF CONSULTATION: 06/26/2017 REFERRING PHYSICIAN: Sharmin Mclaughlin MD HISTORY OF PRESENT ILLNESS: The patient is a 52-year-old woman with past medical history of chronic ulcerations of the lower extremities, atrial fibrillation, and diabetes, who was admitted on June 18, 2017, after being found on the floor at home. Patient states she has been struggling with her mobility due to ulcerations in the lower extremities, and was sitting in a chair and fell. She lost consciousness and was brought into the hospital after she was found by her brother. She underwent multiple imaging studies including duplex of the lower extremities, which showed minimal atherosclerotic disease but no occlusion in the lower extremities. She also underwent venous studies which showed no evidence of deep vein thrombosis. Patient diagnosed with sepsis as well as acute renal failure. Her BUN on admission was 134 with a creatinine of 5.6. She had multiple electrolyte abnormalities. Sodium 121, potassium 8.5 on admission, chloride 95, and CO2 9. She had elevated WBCs on admission at 26.7, hemoglobin 12.7, platelet count 597. Her kidney function has gradually improved, and as of today, BUN improved to 18, creatinine 0.8, sodium normalized to 142, her potassium is slightly low at 3.4, chloride 110. Her CBC, WBCs also have improved and are currently 10.5, hemoglobin 8.2, and platelet count 242. Patient continues to complain of pain in the left more than right lower extremity. She is now seen in rehabilitation evaluation. REVIEW OF PAST MEDICAL AND SURGICAL HISTORY: Cellulitis of the lower extremities, chronic ulcers or wounds, atrial fibrillation, on Eliquis, history of gastritis, obesity, diabetes. SOCIAL HISTORY: Per the patient, lives with her brother in multi-family home. She lives on the 1st level, 4 steps to enter. Most recently she had been ambulating short distances with a walker due to the wounds in her lower extremities. CURRENT FUNCTION: At bedrest. REVIEW OF SYSTEMS: No current dizziness, lightheadedness. No chest pain, shortness of breath. No fever or chills. No bowel or bladder change. She has pain in the distal left more than right lower extremity but no complaints of numbness or tingling. No upper extremity numbness, tingling, or pain. EXAMINATION: General: Obese woman seen lying in bed. She is awake, alert, cooperative. HEENT: She is normocephalic and atraumatic. Extraocular muscles appear intact. Neck: Supple. Extremities: Not really able to examine her lower extremities. She has Dave bandages on, and she can move her feet but declines any formal examination due to pain. Neuromuscular: She is awake, alert, oriented x3. Cranial nerves are grossly intact. Good range of motion and strength in the upper extremities. She has weakness in both lower extremities. She cannot elevate her lower extremities off the bed. Hip girdle 2/5. Dorsiflexion on the right is at least 3/5; on the left, 1 to 2, limited by pain. Knee extension 2+/5. Normal sensation to light touch, but again, she declines extensive examination due to pain. OVERALL IMPRESSION: 1. Deficit in mobility, activities of daily living. 2. Ulcerations of the lower extremities, history of cellulitis and chronic wounds, with sepsis. 3. Acute renal failure. 4. Multiple electrolyte abnormalities with currently hypokalemia. 5. Atrial fibrillation, on Eliquis. 6. Anemia. 7. Morbid obesity. 8. Diabetes. 9. Possible diabetic polyneuropathy. PLAN, SUGGESTION: 1. Bedside physical therapy mainly for strengthening of the lower extremities, as well as her upper extremities. Patient will probably decline getting out of bed but could sit up in bed if the pain is managed. 2. On Eliquis. No further DVT prophylaxis needed. 3. Pain management. Consider formal consultation. 4. Wound care. 5. Monitor bowels. 6. May require short-term rehab in a prison facility. Thank you for this referral. HELGA ADAMS M.D. [facility]/[id number]
[2017-06-26] MEDS: CHLORHEXIDINE GLUCONATE 4% CLEANSER FOR DECOLONIZATION TP SCH (21:20)
[2017-06-27] MEDS: ARTIFICIAL TEARS (POLYVINYL ALCOHOL 1.4%) OPTH DROPS OU SCH ×3 (05:59→22:01)
[2017-06-27] MEDS: INSULIN DETEMIR 100 UNITS/ML MDV SQ SCH (05:59)
[2017-06-27] MEDS: INSULIN SLIDING SCALE (NOVOLOG) 1 VIAL SQ SCH ×4 (06:00→22:01)
[2017-06-27 06:18] LABS: HEMATOCRIT 27.7 % (32.4-45.2); HEMOGLOBIN 8.7 GM/dL (10.7-15.3); LYMPH % 8.1 % (8-40); MCH 26.7 pg (25.7-33.7); MCHC 31.4 g/dl (32.0-36.0); MEAN CELL VOLUME 85.1 fl (80-96); MEAN PLT VOLUME 9.7 fl (7.5-11.1); MONO % 6.9 % (3.8-10.2); PLATELET COUNT 324 K/MM3 (134-434); RBC 3.26 M/mm3 (3.60-5.2); RDW 14.5 % (11.6-15.6); WHITE BLOOD COUNT 11.6 K/mm3 (4.0-10.0)
[2017-06-27 06:44] LABS: ALBUMIN 1.6 g/dl (3.4-5.0); ANION GAP 8 (8-16); BLOOD UREA NITROGEN 16 mg/dL (7-18); CALCIUM 7.7 mg/dL (8.5-10.1); CHLORIDE 108 mmol/L (98-107); CO2 25 mmol/L (21-32); GLUCOSE,RANDOM 95 mg/dL (74-106); POTASSIUM 3.9 mmol/L (3.5-5.1); SGPT/ALT 17 U/L (12-78); SODIUM 141 mmol/L (136-145)
[2017-06-27 06:47] LABS: ALK PHOS 79 U/L (45-117); BILIRUBIN,TOTAL 0.4 mg/dL (0.2-1.0); CREATININE 0.7 mg/dL (0.55-1.02); SGOT/AST 7 U/L (15-37); TOT PROT 4.7 g/dl (6.4-8.2)
--- NOTE | 2017-06-27 07:32 | OP ---
DATE OF OPERATION: 06/20/2017 PREOPERATIVE DIAGNOSIS: Necrotic calf ulcers, bilateral lower extremities. POSTOPERATIVE DIAGNOSIS: Necrotic calf ulcers, bilateral lower extremities. PROCEDURE: Excisional debridement, bilateral calf ulcers, skin, subcutaneous tissue, muscle. FINDINGS: Necrotic tissue, pus found and cultures taken. SURGEON: Wesley Jain DO ANESTHESIA: General. ESTIMATED BLOOD LOSS: 75 mL. The patient is a 52-year-old female that comes in in sepsis with high fevers that caused her to go into acute renal failure and needed dialysis access placement bedside in the ICU. After examining her bilateral lower extremities, she had pus draining from her calves and she has wounds on her bilateral calves that have not been seen by her wound care doctor in weeks to months. Patient has been changing her own dressings at home with minimal dressing supplies. She now is probably septic from the area and needs debridement. Patient's family was consented for the procedure, understanding all risks, benefits and alternatives. Then taken to the operating room into the operative suite on the operating table in the supine manner and bilateral lower extremities were prepped and draped with Betadine in a sterile surgical manner. We then went ahead and started on the right calf first and all the necrotic tissue was removed using a No. 15 blade going down through the skin and subcutaneous tissue and muscle. We were able to take a curet and take all the necrotic tissue off the edges. As well, Bovie electrocautery was used to control all hemostasis. We then went ahead and found an area of pus and that was cultured and sent off. We then went ahead and placed 4 x 4 dressings. We then went over to the left calf and in the same manner we were able to use a curet and the skin, subcutaneous tissue were excised using a curet and using a 15 blade we were able to get all the rest of the necrotic tissue off of the muscle as well. The wound was then well irrigated. We then went ahead and placed Xeroform, 4 x 4's, ABD pads, Kerlix and Dave bandages. The patient tolerated the procedure with no complications. Patient transferred back to ICU in a safe manner. The patient did well. WESLEY JAIN DO NP/[id number]
--- NOTE | 2017-06-27 08:30 | PN ---
Progress Note, Physician History of Present Illness: more comfortable today - Current Medication List Current Medications: Active Medications Acetaminophen (Tylenol -) 650 mg PO Q6H PRN PRN Reason: PAIN LEVEL 1-5 Last Admin: 06/26/17 07:34 Dose: 650 mg Apixaban (Eliquis -) 5 mg PO BID [facility] Last Admin: 06/26/17 21:26 Dose: 5 mg Artificial Tears (Artificial Tears) 1 drop OU TID [facility] Last Admin: 06/27/17 05:59 Dose: 1 drop Budesonide/Formoterol Fumarate (Symbicort 80/4.5mcg -) 2 puff IH BID [facility] Last Admin: 06/26/17 21:21 Dose: 2 puff Chlorhexidine Gluconate (Hibiclens For Decolonization -) 1 applic TP HS [facility] Last Admin: 06/26/17 21:20 Dose: 1 applic Collagenase (Santyl -) 1 applic TP DAILY [facility] Last Admin: 06/26/17 11:08 Dose: 1 applic Vancomycin HCl 750 mg/ (Dextrose) 250 mls @ 250 mls/hr IVPB Q24H [facility] PRN Reason: Protocol Last Admin: 06/26/17 16:30 Dose: 250 mls/hr Ertapenem 1 gm/ Sodium (Chloride) 100 mls @ 200 mls/hr IVPB DAILY [facility] PRN Reason: Protocol Last Admin: 06/26/17 11:08 Dose: 200 mls/hr Insulin Aspart (Novolog Vial Sliding Scale -) 1 vial SQ ACHS [facility] PRN Reason: Protocol Last Admin: 06/27/17 06:00 Dose: Not Given Insulin Detemir (Levemir Vial) 20 units SQ AM [facility] Last Admin: 06/27/17 05:59 Dose: 20 units Midodrine (Proamatine -) 5 mg PO TID-MID [facility] Last Admin: 06/26/17 17:55 Dose: 5 mg Ondansetron HCl (Zofran Injection) 4 mg IVPB Q6H PRN PRN Reason: NAUSEA Ondansetron HCl (Zofran Injection) 4 mg IVPUSH Q6H PRN PRN Reason: NAUSEA AND/OR VOMITING Pantoprazole Sodium (Protonix -) 40 mg PO DAILY [facility] Last Admin: 06/26/17 09:09 Dose: 40 mg Tramadol HCl (Ultram -) 50 mg PO Q6H PRN PRN Reason: PAIN LEVEL 4 - 6 Last Admin: 06/26/17 17:00 Dose: 50 mg - Objective Vital Signs: Vital Signs Temperature 98 F 06/27/17 06:00 Pulse Rate 110 H 06/27/17 06:00 Respiratory Rate 26 H 06/27/17 06:00 Blood Pressure 89/55 06/27/17 06:00 O2 Sat by Pulse Oximetry (%) 98 06/26/17 20:02 Cardiovascular: Yes: S1, S2 Respiratory: Yes: Regular, CTA Bilaterally Gastrointestinal: Yes: Normal Bowel Sounds, Soft. No: Tenderness Labs: CBC, BMP 06/27/17 05:35 06/27/17 05:35 INR, PTT INR 1.16 (0.82-1.09) H 06/18/17 20:30 Problem List - Problems (1) Sepsis Code(s): A41.9 - SEPSIS, UNSPECIFIED ORGANISM Qualifiers: Sepsis type: sepsis due to unspecified organism Qualified Code(s): A41.9 - Sepsis, unspecified organism (2) Altered mental status Code(s): R41.82 - ALTERED MENTAL STATUS, UNSPECIFIED (3) Ulcers of both lower extremities Code(s): L97.919 - NON-PRS CHRONIC ULC UNSP PRT OF R LOW LEG W UNSP SEVERITY; L97.929 - NON-PRS CHRONIC ULC UNSP PRT OF L LOW LEG W UNSP SEVERITY Qualifiers: Non-pressure ulcer stage: unspecified non-pressure ulcer stage Qualified Code(s): L97.919 - Non-pressure chronic ulcer of unspecified part of right lower leg with unspecified severity; L97.929 - Non-pressure chronic ulcer of unspecified part of left lower leg with unspecified severity; L97.929 - Non- pressure chronic ulcer of unspecified part of left lower leg with unspecified severity; L97.929 - Non-pressure chronic ulcer of unspecified part of left lower leg with unspecified severity; L97.929 - Non-pressure chronic ulcer of unspecified part of left lower leg with unspecified severity (4) Afib Code(s): I48.91 - UNSPECIFIED ATRIAL FIBRILLATION (5) DM2 (diabetes mellitus, type 2) Code(s): E11.9 - TYPE 2 DIABETES MELLITUS WITHOUT COMPLICATIONS Qualifiers: Diabetes mellitus complication detail: with other circulatory complications (6) Renal failure (ARF), acute on chronic Code(s): N17.9 - ACUTE KIDNEY FAILURE, UNSPECIFIED; N18.9 - CHRONIC KIDNEY DISEASE, UNSPECIFIED Assessment/Plan - Problems (1) Electrolyte abnormality Assessment/Plan: K and Mag repleted will recheck Code(s): E87.8 - OTH DISORDERS OF ELECTROLYTE AND FLUID BALANCE, NEC (2) Leukocytosis Assessment/Plan: ID on board on iv abx-meropenem culture sent Microbiology 06/22/17 01:00 Blood - Central Line Blood Culture - Preliminary NO GROWTH OBTAINED AFTER 48 HOURS, INCUBATION TO CONTINUE FOR 3 DAYS. 06/22/17 00:30 Blood - Central Line Blood Culture - Preliminary NO GROWTH OBTAINED AFTER 48 HOURS, INCUBATION TO CONTINUE FOR 3 DAYS. wbc trending down Code(s): D72.829 - ELEVATED WHITE BLOOD CELL COUNT, UNSPECIFIED (3) Ulcers of both lower extremities Assessment/Plan: seen by vascular s/p debridement wound care per vascular Code(s): L97.919 - NON-PRS CHRONIC ULC UNSP PRT OF R LOW LEG W UNSP SEVERITY; L97.929 - NON-PRS CHRONIC ULC UNSP PRT OF L LOW LEG W UNSP SEVERITY Qualifiers: Non-pressure ulcer stage: unspecified non-pressure ulcer stage Qualified Code(s): L97.919 - Non-pressure chronic ulcer of unspecified part of right lower leg with unspecified severity; L97.929 - Non-pressure chronic ulcer of unspecified part of left lower leg with unspecified severity; L97.929 - Non- pressure chronic ulcer of unspecified part of left lower leg with unspecified severity; L97.929 - Non-pressure chronic ulcer of unspecified part of left lower leg with unspecified severity; L97.929 - Non-pressure chronic ulcer of unspecified part of left lower leg with unspecified severity (4) Hyperkalemia Assessment/Plan: improved-resolved Code(s): E87.5 - HYPERKALEMIA (5) NOVA (acute kidney injury) Assessment/Plan: resolved making urine no more HD need bun/cr much improved and now normal Code(s): N17.9 - ACUTE KIDNEY FAILURE, UNSPECIFIED (6) Afib Assessment/Plan: on eliquis bid Code(s): I48.91 - UNSPECIFIED ATRIAL FIBRILLATION (7) DM2 (diabetes mellitus, type 2) Assessment/Plan: dc night time levemir given the low bgm in AM decrease AM levemir to 20 units Code(s): E11.9 - TYPE 2 DIABETES MELLITUS WITHOUT COMPLICATIONS Qualifiers: Diabetes mellitus complication detail: with other circulatory complications
--- NOTE | 2017-06-27 08:33 | PN ---
Physical Exam: SUBJECTIVE: Patient seen and examined The patient is a 52 year old female with a history of DM, afib, gastritis, cellulitis who was admitted for AMS secondary to nova with electrolyte derangement for urgent dialysis with associated hypotension. Patient complains of pain with dressing changes that is now improved. She has continued to have somewhat lower blood pressures overnight, but continues to be off pressors. Otherwise no acute events overnight. OBJECTIVE: Vital Signs Period Temp Pulse Resp BP Sys/Callahan Pulse Ox Last 24 Hr 98 F-98.9 F 88-110 21-26 89-118/45-82 98-98 GENERAL: The patient is awake, alert, and fully oriented, in no acute distress. HEAD: Normal with no signs of trauma. EYES: sclera anicteric, conjunctiva clear. No ptosis. ENT: oropharynx clear without exudates, moist mucous membranes. NECK: Trachea midline, full range of motion, supple. LUNGS: Breath sounds equal, clear to auscultation bilaterally, no wheezes, no crackles, no accessory muscle use. HEART: Regular rate and rhythm, S1, S2 without murmur, rub or gallop. ABDOMEN: Soft, nontender, nondistended, normoactive bowel sounds, no guarding, no rebound, no hepatosplenomegaly, no masses. EXTREMITIES: 2+ pulses, warm, well-perfused, 2+ edema. Lower extremity erythema and warmth with bilateral lower extremity wounds with dry dressings. NEUROLOGICAL: Normal speech, gait not observed. PSYCH: Normal mood, normal affect. SKIN: Warm, dry, normal turgor, no rashes or lesions noted Laboratory Results - last 24 hr 06/27/17 06/27/17 06/27/17 05:35 05:35 05:35 WBC 11.6 H RBC 3.26 L Hgb 8.7 L Hct 27.7 L MCV 85.1 MCH 26.7 MCHC 31.4 L RDW 14.5 Plt Count 324 D MPV 9.7 Neutrophils % 79.0 Lymphocytes % 8.1 D Monocytes % 6.9 Eosinophils % 5.0 H Basophils % 1.0 Sodium 141 Potassium 3.9 Chloride 108 H Carbon Dioxide 25 Anion Gap 8 BUN 16 Creatinine 0.7 Creat Clearance w eGFR > 60 Random Glucose 95 Calcium 7.7 L Total Bilirubin 0.4 D AST 7 L ALT 17 Alkaline Phosphatase 79 Total Protein 4.7 L Albumin 1.6 L Random Vancomycin 12.150 Active Medications Generic Name Dose Route Start Last Admin Trade Name Freq PRN Reason Stop Dose Admin Acetaminophen 650 mg 06/26/17 07:08 06/26/17 07:34 Tylenol - PO 650 mg Q6H PRN Administration PAIN LEVEL 1-5 Apixaban 5 mg 06/24/17 22:00 06/26/17 21:26 Eliquis - PO 5 mg BID [facility] Administration Artificial Tears 1 drop 06/22/17 22:00 06/27/17 05:59 Artificial Tears OU 1 drop TID [facility] Administration Budesonide/Formoterol Fumarate 2 puff 06/21/17 11:00 06/26/17 21:21 Symbicort 80/4.5mcg - IH 2 puff BID [facility] Administration Chlorhexidine Gluconate 1 applic 06/20/17 22:00 06/26/17 21:20 Hibiclens For Decolonization - TP 1 applic HS [facility] Administration Collagenase 1 applic 06/26/17 10:00 06/26/17 11:08 Santyl - TP 1 applic DAILY [facility] Administration Vancomycin HCl 750 mg/ 250 mls @ 250 mls/hr 06/21/17 16:00 06/26/17 16:30 Dextrose IVPB 250 mls/hr Q24H [facility] Administration Protocol Ertapenem 1 gm/ Sodium 100 mls @ 200 mls/hr 06/26/17 10:00 06/26/17 11:08 Chloride IVPB 200 mls/hr DAILY [facility] Administration Protocol Insulin Aspart 1 vial 06/20/17 16:30 06/27/17 06:00 Novolog Vial Sliding Scale - SQ Not Given ACHS [facility] Protocol Insulin Detemir 20 units 06/25/17 10:40 06/27/17 05:59 Levemir Vial SQ 20 units AM [facility] Administration Midodrine 5 mg 06/24/17 10:00 06/26/17 17:55 Proamatine - PO 5 mg TID-MID [facility] Administration Ondansetron HCl 4 mg 06/20/17 15:01 Zofran Injection IVPB Q6H PRN NAUSEA Ondansetron HCl 4 mg 06/20/17 15:01 Zofran Injection IVPUSH Q6H PRN NAUSEA AND/OR VOMITING Pantoprazole Sodium 40 mg 06/25/17 19:30 06/26/17 09:09 Protonix - PO 40 mg DAILY [facility] Administration Tramadol HCl 50 mg 06/26/17 10:30 06/26/17 17:00 Ultram - PO 50 mg Q6H PRN Administration PAIN LEVEL 4 - 6 ASSESSMENT/PLAN: The patient is a 52 year old female with a history of DM, afib, gastritis, cellulitis who was admitted for AMS secondary to nova with electrolyte derangement for urgent dialysis with associated hypotension. NEURO Patient is alert and oriented x3 No issues currently. -Will continue to monitor. CV #Septic Shock, with lactic acidosis and hypotension - Continue midodrine - Patient now off pressors and stable. - Will check a cortizol level as the patient remains somewhat hypotensive although stable. - Will hold anti-htn home meds: cardizemm 30mg po QID RESP #Respiratory distress (Improved) The patient is currently off bipap and is resting comfortable. -Will continue to monitor. GI No Issues currently. Heme #Anemia -h/h improving today. -We are comfortable restarting the patient on Eliquis for anticoagulation. -Will continue to monitor h/h Renal #NOVA The patient's hyponatremia and hyperkalemia is no improved post dialysis with an improved EKG from admission. - Will switch the patient to NS maintenance fluids per Nephrology recs. - Will continue cuevas for UOP monitoring ID #[email or web address] Likely secondary to the patient's cellulitis and lower extremity wounds. ID has been consulted - Continue Vancomycin and Ertapenem IV daily - Patient had debridement of the lower extremity wounds. MSK No issues currently FEN/GI -Replete electrolytes PRN, will monitor PPX -Eliquis DISPO: Continued ICU monitoring. Visit type - Emergency Visit Emergency Visit: No - New Patient This patient is new to me today: No - Critical Care Critical Care patient: Yes Total Critical Care Time (in minutes): 35 Critical Care Statement: The care of this patient involved high complexity decision making to prevent further life threatening deterioration of the patient 's condition and/or to evaluate & treat vital organ system(s) failure or risk of failure.
[2017-06-27] MEDS ORDERED: PT OWN MED DRAWER 7, Y5N ONE ×3 (09:30→22:03)
[2017-06-27] MEDS: ERTAPENEM SODIUM 1 GM in SODIUM CHLORIDE 100 ML IVPB SCH (09:45)
[2017-06-27] MEDS: PANTOPRAZOLE 40 MG TABLET (FP) PO SCH (09:46)
[2017-06-27] MEDS: APIXABAN 5 MG TABLET PO SCH ×2 (09:46→22:58)
[2017-06-27] MEDS: MIDODRINE HCL 5 MG TABLET PO SCH ×3 (09:46→17:38)
[2017-06-27] MEDS: COLLAGENASE CLOSTRIDIUM HIST. 30 GRAMS TUBE TP SCH (09:47)
[2017-06-27] MEDS: BUDESONIDE/FORMETEROL FUMARATE 80/4.5 mcg INHALER IH SCH ×2 (09:48→22:01)
[2017-06-27] MEDS: traMADol HCL 50 MG TABLET PO PRN (10:09)
--- NOTE | 2017-06-27 12:27 | PN ---
Teaching Attending Note Name of Resident: Eder Mullins ATTENDING PHYSICIAN STATEMENT I saw and evaluated the patient. I reviewed the resident's note and discussed the case with the resident. I agree with the resident's findings and plan as documented. SUBJECTIVE: Pt seen and examined in the ICU. Off pressors but blood pressures remain borderline. No fevers or chills. OBJECTIVE: Last Vital Signs Temp Pulse Resp BP Pulse Ox 98.6 F 110 H 26 H 101/58 99 06/27/17 09:41 06/27/17 09:41 06/27/17 09:41 06/27/17 09:41 06/27/17 09:00 Intake & Output 06/24/17 06/25/17 06/26/17 06/27/17 23:59 23:59 23:59 23:59 Intake Total 2384 1290 670 100 Output Total 1200 1250 400 Balance 1184 40 270 100 Weight 127.777 kg 128.2 kg 129.1 kg Gen: less tachypneic Heart: tachycardic, regular Lung: decreased breath sounds at the bases Abd: soft, nontender Ext: dressings with drainage CBC, BMP 06/27/17 05:35 06/27/17 05:35 Active Medications Acetaminophen (Tylenol -) 650 mg PO Q6H PRN PRN Reason: PAIN LEVEL 1-5 Last Admin: 06/26/17 07:34 Dose: 650 mg Apixaban (Eliquis -) 5 mg PO BID [facility] Last Admin: 06/27/17 09:46 Dose: 5 mg Artificial Tears (Artificial Tears) 1 drop OU TID [facility] Last Admin: 06/27/17 05:59 Dose: 1 drop Budesonide/Formoterol Fumarate (Symbicort 80/4.5mcg -) 2 puff IH BID [facility] Last Admin: 06/27/17 09:48 Dose: 2 puff Chlorhexidine Gluconate (Hibiclens For Decolonization -) 1 applic TP HS [facility] Last Admin: 06/26/17 21:20 Dose: 1 applic Collagenase (Santyl -) 1 applic TP DAILY [facility] Last Admin: 06/27/17 09:47 Dose: 1 applic Diltiazem HCl (Cardizem -) 30 mg PO QID [facility] Vancomycin HCl 750 mg/ (Dextrose) 250 mls @ 250 mls/hr IVPB Q24H [facility] PRN Reason: Protocol Last Admin: 06/26/17 16:30 Dose: 250 mls/hr Ertapenem 1 gm/ Sodium (Chloride) 100 mls @ 200 mls/hr IVPB DAILY [facility] PRN Reason: Protocol Last Admin: 06/27/17 09:45 Dose: 200 mls/hr Insulin Aspart (Novolog Vial Sliding Scale -) 1 vial SQ ACHS [facility] PRN Reason: Protocol Last Admin: 06/27/17 12:06 Dose: Not Given Insulin Detemir (Levemir Vial) 20 units SQ AM [facility] Last Admin: 06/27/17 05:59 Dose: 20 units Midodrine (Proamatine -) 10 mg PO TID-MID [facility] Ondansetron HCl (Zofran Injection) 4 mg IVPB Q6H PRN PRN Reason: NAUSEA Ondansetron HCl (Zofran Injection) 4 mg IVPUSH Q6H PRN PRN Reason: NAUSEA AND/OR VOMITING Pantoprazole Sodium (Protonix -) 40 mg PO DAILY [facility] Last Admin: 06/27/17 09:46 Dose: 40 mg Tramadol HCl (Ultram -) 50 mg PO Q6H PRN PRN Reason: PAIN LEVEL 4 - 6 Last Admin: 06/27/17 10:09 Dose: 50 mg ASSESSMENT AND PLAN: Cellulitis/r/o Leg Abscesses s/p Debridement Septic Shock Acute on Chronic Renal Failure Lactic Acidosis resolved Atrial Fibrillation Uncontrolled DM - continue antibiotics - wound care - O2 to keep SpO2 >90% - BiPAP as needed to assist in work of breathing - monitor urine output, creatinine - replete and monitor lytes - off pressors, maintain MAP >65 - titrate up midodrine - glucose control - rate control - continue anticoagulation - aspiration precautions - PO as tolerated - DVT prophylaxis - continue ICU monitoring for now critical care time spent in reviewing chart, evaluating patient and formulating plan 35 min
[2017-06-27] MEDS: dilTIAZem HCL 30 MG TABLET (FP) PO SCH ×3 (13:16→22:07)
--- NOTE | 2017-06-27 13:40 | PN ---
Progress Note, Physician History of Present Illness: Pt seen and examined at bedside. No new events. - Current Medication List Current Medications: Active Medications Acetaminophen (Tylenol -) 650 mg PO Q6H PRN PRN Reason: PAIN LEVEL 1-5 Last Admin: 06/26/17 07:34 Dose: 650 mg Apixaban (Eliquis -) 5 mg PO BID [facility] Last Admin: 06/27/17 09:46 Dose: 5 mg Artificial Tears (Artificial Tears) 1 drop OU TID [facility] Last Admin: 06/27/17 13:18 Dose: 1 drop Budesonide/Formoterol Fumarate (Symbicort 80/4.5mcg -) 2 puff IH BID [facility] Last Admin: 06/27/17 09:48 Dose: 2 puff Chlorhexidine Gluconate (Hibiclens For Decolonization -) 1 applic TP HS [facility] Last Admin: 06/26/17 21:20 Dose: 1 applic Collagenase (Santyl -) 1 applic TP DAILY [facility] Last Admin: 06/27/17 09:47 Dose: 1 applic Diltiazem HCl (Cardizem -) 30 mg PO QID [facility] Last Admin: 06/27/17 13:16 Dose: 30 mg Vancomycin HCl 750 mg/ (Dextrose) 250 mls @ 250 mls/hr IVPB Q24H [facility] PRN Reason: Protocol Last Admin: 06/26/17 16:30 Dose: 250 mls/hr Ertapenem 1 gm/ Sodium (Chloride) 100 mls @ 200 mls/hr IVPB DAILY [facility] PRN Reason: Protocol Last Admin: 06/27/17 09:45 Dose: 200 mls/hr Insulin Aspart (Novolog Vial Sliding Scale -) 1 vial SQ ACHS [facility] PRN Reason: Protocol Last Admin: 06/27/17 12:06 Dose: Not Given Insulin Detemir (Levemir Vial) 20 units SQ AM [facility] Last Admin: 06/27/17 05:59 Dose: 20 units Midodrine (Proamatine -) 10 mg PO TID-MID [facility] Last Admin: 06/27/17 13:18 Dose: 10 mg Ondansetron HCl (Zofran Injection) 4 mg IVPB Q6H PRN PRN Reason: NAUSEA Ondansetron HCl (Zofran Injection) 4 mg IVPUSH Q6H PRN PRN Reason: NAUSEA AND/OR VOMITING Pantoprazole Sodium (Protonix -) 40 mg PO DAILY [facility] Last Admin: 06/27/17 09:46 Dose: 40 mg Tramadol HCl (Ultram -) 50 mg PO Q6H PRN PRN Reason: PAIN LEVEL 4 - 6 Last Admin: 06/27/17 10:09 Dose: 50 mg - Objective Vital Signs: Vital Signs Temperature 98.6 F 06/27/17 10:00 Pulse Rate 112 H 06/27/17 12:00 Respiratory Rate 25 H 06/27/17 12:00 Blood Pressure 97/61 06/27/17 12:00 O2 Sat by Pulse Oximetry (%) 99 06/27/17 09:00 Constitutional: Yes: Calm Eyes: Yes: Conjunctiva Clear HENT: Yes: Atraumatic Neck: Yes: Supple Cardiovascular: Yes: S1, S2 Respiratory: Yes: CTA Bilaterally Gastrointestinal: Yes: Soft, Abdomen, Obese Genitourinary: Yes: Incontinence Edema: Yes Edema: LLE: 1+, RLE: 1+ Neurological: Yes: Oriented Psychiatric: Yes: Oriented Labs: CBC, BMP 06/27/17 05:35 06/27/17 05:35 INR, PTT INR 1.16 (0.82-1.09) H 06/18/17 20:30 Problem List - Problems (1) Hyperkalemia Code(s): E87.5 - HYPERKALEMIA (2) Ulcers of both lower extremities Code(s): L97.919 - NON-PRS CHRONIC ULC UNSP PRT OF R LOW LEG W UNSP SEVERITY; L97.929 - NON-PRS CHRONIC ULC UNSP PRT OF L LOW LEG W UNSP SEVERITY Qualifiers: Non-pressure ulcer stage: unspecified non-pressure ulcer stage Qualified Code(s): L97.919 - Non-pressure chronic ulcer of unspecified part of right lower leg with unspecified severity; L97.929 - Non-pressure chronic ulcer of unspecified part of left lower leg with unspecified severity; L97.929 - Non- pressure chronic ulcer of unspecified part of left lower leg with unspecified severity; L97.929 - Non-pressure chronic ulcer of unspecified part of left lower leg with unspecified severity; L97.929 - Non-pressure chronic ulcer of unspecified part of left lower leg with unspecified severity (3) Unable to ambulate Code(s): R26.2 - DIFFICULTY IN WALKING, NOT ELSEWHERE CLASSIFIED (4) NOVA (acute kidney injury) Code(s): N17.9 - ACUTE KIDNEY FAILURE, UNSPECIFIED (5) Acute renal failure Code(s): N17.9 - ACUTE KIDNEY FAILURE, UNSPECIFIED (6) Afib Code(s): I48.91 - UNSPECIFIED ATRIAL FIBRILLATION Assessment/Plan Current Medications Generic Name Dose Route Start Last Admin Trade Name Freq PRN Reason Stop Dose Admin Acetaminophen 650 mg 06/26/17 07:08 06/26/17 07:34 Tylenol - PO 650 mg Q6H PRN Administration PAIN LEVEL 1-5 Apixaban 5 mg 06/24/17 22:00 06/27/17 09:46 Eliquis - PO 5 mg BID [facility] Administration Artificial Tears 1 drop 06/22/17 22:00 06/27/17 13:18 Artificial Tears OU 1 drop TID [facility] Administration Budesonide/Formoterol Fumarate 2 puff 06/21/17 11:00 06/27/17 09:48 Symbicort 80/4.5mcg - IH 2 puff BID [facility] Administration Chlorhexidine Gluconate 1 applic 06/20/17 22:00 06/26/17 21:20 Hibiclens For Decolonization - TP 1 applic HS [facility] Administration Collagenase 1 applic 06/26/17 10:00 06/27/17 09:47 Santyl - TP 1 applic DAILY [facility] Administration Diltiazem HCl 30 mg 06/27/17 14:00 06/27/17 13:16 Cardizem - PO 30 mg QID [facility] Administration Vancomycin HCl 750 mg/ 250 mls @ 250 mls/hr 06/21/17 16:00 06/26/17 16:30 Dextrose IVPB 250 mls/hr Q24H [facility] Administration Protocol Ertapenem 1 gm/ Sodium 100 mls @ 200 mls/hr 06/26/17 10:00 06/27/17 09:45 Chloride IVPB 200 mls/hr DAILY [facility] Administration Protocol Insulin Aspart 1 vial 06/20/17 16:30 06/27/17 12:06 Novolog Vial Sliding Scale - SQ Not Given ACHS [facility] Protocol Insulin Detemir 20 units 06/25/17 10:40 06/27/17 05:59 Levemir Vial SQ 20 units AM [facility] Administration Midodrine 10 mg 06/27/17 11:32 06/27/17 13:18 Proamatine - PO 10 mg TID-MID [facility] Administration Ondansetron HCl 4 mg 06/20/17 15:01 Zofran Injection IVPB Q6H PRN NAUSEA Ondansetron HCl 4 mg 06/20/17 15:01 Zofran Injection IVPUSH Q6H PRN NAUSEA AND/OR VOMITING Pantoprazole Sodium 40 mg 06/25/17 19:30 06/27/17 09:46 Protonix - PO 40 mg DAILY [facility] Administration Tramadol HCl 50 mg 06/26/17 10:30 06/27/17 10:09 Ultram - PO 50 mg Q6H PRN Administration PAIN LEVEL 4 - 6 Impression 1. NOVA 2. hyperkalemia resolved 3. obesity 4. DM 5. a-fib 6. HTN 7. chronic lower extremity ulcers 8. gastritis 9. sepsis 10. hyponatremia 11. hypokalemia 12. hypotension Plan - cont with midodrine - follow cortisol level - renal function is stable - discussed with ICU team - avoid nsaids Dr Epstein
--- NOTE | 2017-06-27 16:56 | PN ---
Progress Note, Physician History of Present Illness: stable no new issues wound dressing done wound looks good - Current Medication List Current Medications: Active Medications Acetaminophen (Tylenol -) 650 mg PO Q6H PRN PRN Reason: PAIN LEVEL 1-5 Last Admin: 06/26/17 07:34 Dose: 650 mg Apixaban (Eliquis -) 5 mg PO BID [facility] Last Admin: 06/27/17 09:46 Dose: 5 mg Artificial Tears (Artificial Tears) 1 drop OU TID [facility] Last Admin: 06/27/17 13:18 Dose: 1 drop Budesonide/Formoterol Fumarate (Symbicort 80/4.5mcg -) 2 puff IH BID [facility] Last Admin: 06/27/17 09:48 Dose: 2 puff Chlorhexidine Gluconate (Hibiclens For Decolonization -) 1 applic TP HS [facility] Last Admin: 06/26/17 21:20 Dose: 1 applic Collagenase (Santyl -) 1 applic TP DAILY [facility] Last Admin: 06/27/17 09:47 Dose: 1 applic Diltiazem HCl (Cardizem -) 30 mg PO QID [facility] Last Admin: 06/27/17 13:16 Dose: 30 mg Vancomycin HCl 750 mg/ (Dextrose) 250 mls @ 250 mls/hr IVPB Q24H [facility] PRN Reason: Protocol Last Admin: 06/26/17 16:30 Dose: 250 mls/hr Ertapenem 1 gm/ Sodium (Chloride) 100 mls @ 200 mls/hr IVPB DAILY [facility] PRN Reason: Protocol Last Admin: 06/27/17 09:45 Dose: 200 mls/hr Insulin Aspart (Novolog Vial Sliding Scale -) 1 vial SQ ACHS [facility] PRN Reason: Protocol Last Admin: 06/27/17 12:06 Dose: Not Given Insulin Detemir (Levemir Vial) 20 units SQ AM [facility] Last Admin: 06/27/17 05:59 Dose: 20 units Midodrine (Proamatine -) 10 mg PO TID-MID [facility] Last Admin: 06/27/17 13:18 Dose: 10 mg Ondansetron HCl (Zofran Injection) 4 mg IVPB Q6H PRN PRN Reason: NAUSEA Ondansetron HCl (Zofran Injection) 4 mg IVPUSH Q6H PRN PRN Reason: NAUSEA AND/OR VOMITING Pantoprazole Sodium (Protonix -) 40 mg PO DAILY [facility] Last Admin: 06/27/17 09:46 Dose: 40 mg Tramadol HCl (Ultram -) 50 mg PO Q6H PRN PRN Reason: PAIN LEVEL 4 - 6 Last Admin: 06/27/17 10:09 Dose: 50 mg - Objective Vital Signs: Vital Signs Temperature 98.4 F 06/27/17 14:00 Pulse Rate 76 06/27/17 16:00 Respiratory Rate 26 H 06/27/17 16:00 Blood Pressure 95/50 06/27/17 16:00 O2 Sat by Pulse Oximetry (%) 99 06/27/17 09:00 Constitutional: Yes: No Distress, Calm, Obese Cardiovascular: Yes: S1, S2 Respiratory: Yes: Regular, CTA Bilaterally Gastrointestinal: Yes: Normal Bowel Sounds, Soft Musculoskeletal: Yes: WNL Extremities: Yes: Other Wound/Incision: Yes: Dressing Dry and Intact Neurological: Yes: Alert, Oriented Psychiatric: Yes: Alert, Oriented Labs: CBC, BMP 06/27/17 05:35 06/27/17 05:35 INR, PTT INR 1.16 (0.82-1.09) H 06/18/17 20:30 Assessment/Plan Problem List - Problems (1) Hyperkalemia Code(s): E87.5 - HYPERKALEMIA (2) Ulcers of both lower extremities Code(s): L97.919 - NON-PRS CHRONIC ULC UNSP PRT OF R LOW LEG W UNSP SEVERITY; L97.929 - NON-PRS CHRONIC ULC UNSP PRT OF L LOW LEG W UNSP SEVERITY Qualifiers: Non-pressure ulcer stage: unspecified non-pressure ulcer stage Qualified Code(s): L97.919 - Non-pressure chronic ulcer of unspecified part of right lower leg with unspecified severity; L97.929 - Non-pressure chronic ulcer of unspecified part of left lower leg with unspecified severity; L97.929 - Non- pressure chronic ulcer of unspecified part of left lower leg with unspecified severity; L97.929 - Non-pressure chronic ulcer of unspecified part of left lower leg with unspecified severity; L97.929 - Non-pressure chronic ulcer of unspecified part of left lower leg with unspecified severity (3) Unable to ambulate Code(s): R26.2 - DIFFICULTY IN WALKING, NOT ELSEWHERE CLASSIFIED (4) NOVA (acute kidney injury) Code(s): N17.9 - ACUTE KIDNEY FAILURE, UNSPECIFIED (5) Acute renal failure Code(s): N17.9 - ACUTE KIDNEY FAILURE, UNSPECIFIED (6) Afib Code(s): I48.91 - UNSPECIFIED ATRIAL FIBRILLATION sepsis leukocytosis electrolyte abn vanco trough noted plan' continue abx wound care cx reports await for plan pain mgmt rest as per icu cc time 40 min
[2017-06-27] MEDS: VANCOMYCIN 750 MG in DEXTROSE 5%-WATER - 250 ML IVPB SCH (17:33)
[2017-06-27] MEDS: CHLORHEXIDINE GLUCONATE 4% CLEANSER FOR DECOLONIZATION TP SCH (22:01)
[2017-06-28] MEDS: INSULIN DETEMIR 100 UNITS/ML MDV SQ SCH (06:17)
[2017-06-28] MEDS: ARTIFICIAL TEARS (POLYVINYL ALCOHOL 1.4%) OPTH DROPS OU SCH ×3 (06:18→21:22)
[2017-06-28] MEDS: INSULIN SLIDING SCALE (NOVOLOG) 1 VIAL SQ SCH ×4 (06:18→21:16)
[2017-06-28] MEDS ORDERED: INSULIN DETEMIR 100 UNITS/ML MDV SQ ONE (06:31)
[2017-06-28 06:47] LABS: BASO % 1.1 % (0-2.0); EOS % 4.7 % (0-4.5); HEMATOCRIT 26.3 % (32.4-45.2); HEMOGLOBIN 8.3 GM/dL (10.7-15.3); LYMPH % 9.8 % (8-40); MCH 26.9 pg (25.7-33.7); MCHC 31.6 g/dl (32.0-36.0); MEAN CELL VOLUME 85.1 fl (80-96); MEAN PLT VOLUME 9.6 fl (7.5-11.1); MONO % 6.9 % (3.8-10.2); NEUT % 77.5 % (42.8-82.8); PLATELET COUNT 330 K/MM3 (134-434); RDW 14.4 % (11.6-15.6); WHITE BLOOD COUNT 11.4 K/mm3 (4.0-10.0)
[2017-06-28 07:23] LABS: ALBUMIN 1.5 g/dl (3.4-5.0); ANION GAP 8 (8-16); BLOOD UREA NITROGEN 14 mg/dL (7-18); CALCIUM 7.3 mg/dL (8.5-10.1); CHLORIDE 109 mmol/L (98-107); CO2 24 mmol/L (21-32); GLUCOSE,RANDOM 96 mg/dL (74-106); MAGNESIUM 1.5 mg/dL (1.8-2.4); POTASSIUM 3.7 mmol/L (3.5-5.1); SODIUM 141 mmol/L (136-145)
[2017-06-28 07:27] LABS: ALK PHOS 77 U/L (45-117); BILIRUBIN,TOTAL 0.5 mg/dL (0.2-1.0); CREATININE 0.7 mg/dL (0.55-1.02); PHOSPHOROUS 2.4 mg/dL (2.5-4.9); SGOT/AST 9 U/L (15-37); SGPT/ALT 15 U/L (12-78); TOT PROT 4.5 g/dl (6.4-8.2)
[2017-06-28] MEDS ORDERED: MAGNESIUM SULF 50% (8.12 MEQ/2 ML-1 GM VIAL) IVPB ONE (07:49)
--- NOTE | 2017-06-28 08:46 | PN ---
Physical Exam: SUBJECTIVE: Patient seen and examined The patient is a 52 year old female with a history of DM, afib, gastritis, cellulitis who was admitted for AMS secondary to nova with electrolyte derangement for urgent dialysis with associated hypotension. Patient has remained stable overnight. Otherwise no acute events. OBJECTIVE: Vital Signs Period Temp Pulse Resp BP Sys/Callahan Pulse Ox Last 24 Hr 97.9 F-99.1 F 76-112 24-28 94-107/46-74 99-99 GENERAL: The patient is awake, alert, and fully oriented, in no acute distress. HEAD: Normal with no signs of trauma. EYES: sclera anicteric, conjunctiva clear. No ptosis. ENT: oropharynx clear without exudates, moist mucous membranes. NECK: Trachea midline, full range of motion, supple. LUNGS: Breath sounds equal, clear to auscultation bilaterally, no wheezes, no crackles, no accessory muscle use. HEART: Regular rate and rhythm, S1, S2 without murmur, rub or gallop. ABDOMEN: Soft, nontender, nondistended, normoactive bowel sounds, no guarding, no rebound, no hepatosplenomegaly, no masses. EXTREMITIES: 2+ pulses, warm, well-perfused, 2+ edema. Bilateral lower extremity wounds with dry dressings. NEUROLOGICAL: Normal speech, gait not observed. PSYCH: Normal mood, normal affect. SKIN: Warm, dry, normal turgor, no rashes or lesions noted Laboratory Results - last 24 hr 06/23/17 06/23/17 06/23/17 05:35 12:46 17:07 WBC RBC Hgb Hct MCV MCH MCHC RDW Plt Count MPV Neutrophils % Lymphocytes % Monocytes % Eosinophils % Basophils % Sodium Potassium Chloride Carbon Dioxide Anion Gap BUN Creatinine Creat Clearance w eGFR POC Glucometer 190.28136 175.89506 [phone] Random Glucose Calcium Phosphorus Magnesium Total Bilirubin AST ALT Alkaline Phosphatase Total Protein Albumin Cortisol AM Sample 06/23/17 06/24/17 06/24/17 21:40 06:40 11:52 WBC RBC Hgb Hct MCV MCH MCHC RDW Plt Count MPV Neutrophils % Lymphocytes % Monocytes % Eosinophils % Basophils % Sodium Potassium Chloride Carbon Dioxide Anion Gap BUN Creatinine Creat Clearance w eGFR POC Glucometer 180.24036 188.94939 221.19593 Random Glucose Calcium Phosphorus Magnesium Total Bilirubin AST ALT Alkaline Phosphatase Total Protein Albumin Cortisol AM Sample 06/25/17 06/25/17 06/25/17 11:39 17:16 22:50 WBC RBC Hgb Hct MCV MCH MCHC RDW Plt Count MPV Neutrophils % Lymphocytes % Monocytes % Eosinophils % Basophils % Sodium Potassium Chloride Carbon Dioxide Anion Gap BUN Creatinine Creat Clearance w eGFR POC Glucometer 144.74615 129.72326 138.64697 Random Glucose Calcium Phosphorus Magnesium Total Bilirubin AST ALT Alkaline Phosphatase Total Protein Albumin Cortisol AM Sample 06/26/17 06/26/17 06/26/17 05:28 11:36 16:43 WBC RBC Hgb Hct MCV MCH MCHC RDW Plt Count MPV Neutrophils % Lymphocytes % Monocytes % Eosinophils % Basophils % Sodium Potassium Chloride Carbon Dioxide Anion Gap BUN Creatinine Creat Clearance w eGFR POC Glucometer 148.84255 202.42295 [phone] Random Glucose Calcium Phosphorus Magnesium Total Bilirubin AST ALT Alkaline Phosphatase Total Protein Albumin Cortisol AM Sample 06/26/17 06/27/17 06/27/17 21:24 05:35 11:32 WBC RBC Hgb Hct MCV MCH MCHC RDW Plt Count MPV Neutrophils % Lymphocytes % Monocytes % Eosinophils % Basophils % Sodium Potassium Chloride Carbon Dioxide Anion Gap BUN Creatinine Creat Clearance w eGFR POC Glucometer 135.00862 130.88027 Random Glucose Calcium Phosphorus Magnesium Total Bilirubin AST ALT Alkaline Phosphatase Total Protein Albumin Cortisol AM Sample 15.8 06/27/17 06/27/17 06/28/17 17:36 22:00 06:30 WBC 11.4 H RBC 3.10 L Hgb 8.3 L Hct 26.3 L MCV 85.1 MCH 26.9 MCHC 31.6 L RDW 14.4 Plt Count 330 MPV 9.6 Neutrophils % 77.5 Lymphocytes % 9.8 D Monocytes % 6.9 Eosinophils % 4.7 H Basophils % 1.1 Sodium Potassium Chloride Carbon Dioxide Anion Gap BUN Creatinine Creat Clearance w eGFR POC Glucometer 97.73599 138.96912 Random Glucose Calcium Phosphorus Magnesium Total Bilirubin AST ALT Alkaline Phosphatase Total Protein Albumin Cortisol AM Sample 06/28/17 06:30 WBC RBC Hgb Hct MCV MCH MCHC RDW Plt Count MPV Neutrophils % Lymphocytes % Monocytes % Eosinophils % Basophils % Sodium 141 Potassium 3.7 Chloride 109 H Carbon Dioxide 24 Anion Gap 8 BUN 14 Creatinine 0.7 Creat Clearance w eGFR > 60 POC Glucometer Random Glucose 96 Calcium 7.3 L Phosphorus 2.4 L Magnesium 1.5 L Total Bilirubin 0.5 D AST 9 L ALT 15 Alkaline Phosphatase 77 Total Protein 4.5 L Albumin 1.5 L Cortisol AM Sample Active Medications Generic Name Dose Route Start Last Admin Trade Name Joeq PRN Reason Stop Dose Admin Acetaminophen 650 mg 06/26/17 07:08 06/26/17 07:34 Tylenol - PO 650 mg Q6H PRN Administration PAIN LEVEL 1-5 Apixaban 5 mg 06/24/17 22:00 06/27/17 22:58 Eliquis - PO 5 mg BID [facility] Administration Artificial Tears 1 drop 06/22/17 22:00 06/28/17 06:18 Artificial Tears OU 1 drop TID [facility] Administration Budesonide/Formoterol Fumarate 2 puff 06/21/17 11:00 06/27/17 22:01 Symbicort 80/4.5mcg - IH 2 puff BID [facility] Administration Chlorhexidine Gluconate 1 applic 06/20/17 22:00 06/27/17 22:01 Hibiclens For Decolonization - TP 1 applic HS [facility] Administration Collagenase 1 applic 06/26/17 10:00 06/27/17 09:47 Santyl - TP 1 applic DAILY [facility] Administration Diltiazem HCl 30 mg 06/27/17 14:00 06/27/17 22:07 Cardizem - PO 30 mg QID [facility] Administration Vancomycin HCl 750 mg/ 250 mls @ 250 mls/hr 06/21/17 16:00 06/27/17 17:33 Dextrose IVPB 250 mls/hr Q24H [facility] Administration Protocol Ertapenem 1 gm/ Sodium 100 mls @ 200 mls/hr 06/26/17 10:00 06/27/17 09:45 Chloride IVPB 200 mls/hr DAILY [facility] Administration Protocol Magnesium Sulfate/Dextrose 1 gm in 100 mls @ 100 mls/hr 06/28/17 09:00 Magnesium 1gm/D5w - IVPB 06/28/17 09:59 ONCE ONE Insulin Aspart 1 vial 06/20/17 16:30 06/28/17 06:18 Novolog Vial Sliding Scale - SQ Not Given ACHS [facility] Protocol Insulin Detemir 20 units 06/25/17 10:40 06/28/17 06:17 Levemir Vial SQ 20 units AM [facility] Administration Magnesium Oxide 800 mg 06/28/17 10:00 Mag-Ox - PO 06/28/17 10:01 ONCE ONE Midodrine 10 mg 06/27/17 11:32 06/27/17 17:38 Proamatine - PO 10 mg TID-MID [facility] Administration Ondansetron HCl 4 mg 06/20/17 15:01 Zofran Injection IVPB Q6H PRN NAUSEA Ondansetron HCl 4 mg 06/20/17 15:01 Zofran Injection IVPUSH Q6H PRN NAUSEA AND/OR VOMITING Pantoprazole Sodium 40 mg 06/25/17 19:30 06/27/17 09:46 Protonix - PO 40 mg DAILY [facility] Administration Potassium Phos/Sodium Phos 1 packet 06/28/17 09:00 Phos-Nak Packet - PO 06/28/17 09:01 ONCE ONE Tramadol HCl 50 mg 06/26/17 10:30 06/27/17 10:09 Ultram - PO 50 mg Q6H PRN Administration PAIN LEVEL 4 - 6 ASSESSMENT/PLAN: The patient is a 52 year old female with a history of DM, afib, gastritis, cellulitis who was admitted for AMS secondary to nova with electrolyte derangement for urgent dialysis with associated hypotension. NEURO Patient is alert and oriented x3 No issues currently. -Will continue to monitor. CV #Septic Shock, with lactic acidosis and hypotension - Continue midodrine - Patient now off pressors and stable. - Will check a cortizol level as the patient remains somewhat hypotensive although stable. - Restarted cardizemm 30mg po QID RESP #Respiratory distress (Improved) The patient is currently off bipap and is resting comfortable. -Will continue to monitor. GI No Issues currently. Heme #Anemia -h/h improved. -We are comfortable restarting the patient on Eliquis for anticoagulation. -Will continue to monitor h/h Renal #NOVA The patient's hyponatremia and hyperkalemia is no improved post dialysis with an improved EKG from admission. - Will switch the patient to NS maintenance fluids per Nephrology recs. - Will continue cuevas for UOP monitoring ID #Sepsis Likely secondary to the patient's cellulitis and lower extremity wounds. ID has been consulted - Continue Vancomycin and Ertapenem IV daily - Patient had debridement of the lower extremity wounds. - Wound care per surgical team. MSK No issues currently FEN/GI -Replete electrolytes PRN, will monitor PPX -Eliquis DISPO: Stable for transfer to floor monitoring. Visit type - Emergency Visit Emergency Visit: No - New Patient This patient is new to me today: No - Critical Care Critical Care patient: Yes Total Critical Care Time (in minutes): 35 Critical Care Statement: The care of this patient involved high complexity decision making to prevent further life threatening deterioration of the patient 's condition and/or to evaluate & treat vital organ system(s) failure or risk of failure.
[2017-06-28] MEDS ORDERED: NAPH,MB-DB/K PH,MBDB POWDER PACKET PO ONE (09:00)
[2017-06-28] MEDS ORDERED: MAGNESIUM 1GM/D5W - 1 GM/100 ML IVPB IVPB ONE (09:00)
[2017-06-28] MEDS: traMADol HCL 50 MG TABLET PO PRN ×2 (09:10→15:46)
[2017-06-28] MEDS ORDERED: PT OWN MED DRAWER 7, Y5N ONE ×2 (09:23→21:18)
[2017-06-28] MEDS: BUDESONIDE/FORMETEROL FUMARATE 80/4.5 mcg INHALER IH SCH ×2 (09:30→21:16)
[2017-06-28] MEDS: dilTIAZem HCL 30 MG TABLET (FP) PO SCH ×4 (09:30→21:22)
[2017-06-28] MEDS: PANTOPRAZOLE 40 MG TABLET (FP) PO SCH (09:30)
[2017-06-28] MEDS: APIXABAN 5 MG TABLET PO SCH ×2 (09:31→21:21)
[2017-06-28] MEDS: MIDODRINE HCL 5 MG TABLET PO SCH ×3 (09:33→18:37)
[2017-06-28] MEDS ORDERED: MAGNESIUM OXIDE 400 MG TABLET (FP) PO ONE (10:00)
[2017-06-28] MEDS: ERTAPENEM SODIUM 1 GM in SODIUM CHLORIDE 100 ML IVPB SCH (10:05)
[2017-06-28] MEDS: COLLAGENASE CLOSTRIDIUM HIST. 30 GRAMS TUBE TP SCH (10:06)
[2017-06-28] MEDS ORDERED: HEMOQUE TEST 1 EACH EACH ONE ×2 (11:32→20:31)
--- NOTE | 2017-06-28 13:00 | PN ---
Teaching Attending Note Name of Resident: Eder Mullins ATTENDING PHYSICIAN STATEMENT I saw and evaluated the patient. I reviewed the resident's note and discussed the case with the resident. I agree with the resident's findings and plan as documented. SUBJECTIVE: Patient seen and examined in the ICU. Remains off pressors. Awake and alert. Reports pain in her LE. No CP or SOB. OBJECTIVE: Intake & Output 06/25/17 06/26/17 06/27/17 06/28/17 23:59 23:59 23:59 23:59 Intake Total 1290 670 810 350 Output Total 1250 400 Balance 40 270 810 350 Weight 281 lb 11.2 oz 282 lb 10.122 oz 284 lb 9.868 oz 281 lb 3 oz Last Vital Signs Temp Pulse Resp BP Pulse Ox 98.4 F 105 H 22 88/66 99 06/28/17 10:00 06/28/17 12:00 06/28/17 12:00 06/28/17 12:00 06/28/17 09:00 Active Medications Acetaminophen (Tylenol -) 650 mg PO Q6H PRN PRN Reason: PAIN LEVEL 1-5 Last Admin: 06/26/17 07:34 Dose: 650 mg Apixaban (Eliquis -) 5 mg PO BID [facility] Last Admin: 06/28/17 09:31 Dose: 5 mg Artificial Tears (Artificial Tears) 1 drop OU TID [facility] Last Admin: 06/28/17 06:18 Dose: 1 drop Budesonide/Formoterol Fumarate (Symbicort 80/4.5mcg -) 2 puff IH BID [facility] Last Admin: 06/28/17 09:30 Dose: 2 puff Chlorhexidine Gluconate (Hibiclens For Decolonization -) 1 applic TP HS [facility] Last Admin: 06/27/17 22:01 Dose: 1 applic Collagenase (Santyl -) 1 applic TP DAILY [facility] Last Admin: 06/28/17 10:06 Dose: 1 applic Diltiazem HCl (Cardizem -) 30 mg PO QID [facility] Last Admin: 06/28/17 09:30 Dose: 30 mg Vancomycin HCl 750 mg/ (Dextrose) 250 mls @ 250 mls/hr IVPB Q24H [facility] PRN Reason: Protocol Last Admin: 06/27/17 17:33 Dose: 250 mls/hr Ertapenem 1 gm/ Sodium (Chloride) 100 mls @ 200 mls/hr IVPB DAILY [facility] PRN Reason: Protocol Last Admin: 06/28/17 10:05 Dose: 200 mls/hr Insulin Aspart (Novolog Vial Sliding Scale -) 1 vial SQ ACHS [facility] PRN Reason: Protocol Last Admin: 06/28/17 12:00 Dose: Not Given Insulin Detemir (Levemir Vial) 20 units SQ AM [facility] Last Admin: 06/28/17 06:17 Dose: 20 units Midodrine (Proamatine -) 10 mg PO TID-MID [facility] Last Admin: 06/28/17 09:33 Dose: 10 mg Ondansetron HCl (Zofran Injection) 4 mg IVPB Q6H PRN PRN Reason: NAUSEA Ondansetron HCl (Zofran Injection) 4 mg IVPUSH Q6H PRN PRN Reason: NAUSEA AND/OR VOMITING Pantoprazole Sodium (Protonix -) 40 mg PO DAILY [facility] Last Admin: 06/28/17 09:30 Dose: 40 mg Tramadol HCl (Ultram -) 50 mg PO Q6H PRN PRN Reason: PAIN LEVEL 4 - 6 Last Admin: 06/28/17 09:10 Dose: 50 mg Gen: Awake and alert, less tachypneic Heart: tachycardic, regular Lung: decreased breath sounds at the bases Abd: soft, nontender Ext: dressings with drainage Laboratory Results - last 24 hr 06/23/17 06/23/17 06/23/17 05:35 12:46 17:07 WBC RBC Hgb Hct MCV MCH MCHC RDW Plt Count MPV Neutrophils % Lymphocytes % Monocytes % Eosinophils % Basophils % Sodium Potassium Chloride Carbon Dioxide Anion Gap BUN Creatinine Creat Clearance w eGFR POC Glucometer 190.42740 175.01682 161.68715 Random Glucose Calcium Phosphorus Magnesium Total Bilirubin AST ALT Alkaline Phosphatase Total Protein Albumin Cortisol AM Sample 06/23/17 06/24/17 06/24/17 21:40 06:40 11:52 WBC RBC Hgb Hct MCV MCH MCHC RDW Plt Count MPV Neutrophils % Lymphocytes % Monocytes % Eosinophils % Basophils % Sodium Potassium Chloride Carbon Dioxide Anion Gap BUN Creatinine Creat Clearance w eGFR POC Glucometer 180.89239 188.83142 221.82500 Random Glucose Calcium Phosphorus Magnesium Total Bilirubin AST ALT Alkaline Phosphatase Total Protein Albumin Cortisol AM Sample 06/25/17 06/25/17 06/25/17 11:39 17:16 22:50 WBC RBC Hgb Hct MCV MCH MCHC RDW Plt Count MPV Neutrophils % Lymphocytes % Monocytes % Eosinophils % Basophils % Sodium Potassium Chloride Carbon Dioxide Anion Gap BUN Creatinine Creat Clearance w eGFR POC Glucometer 144.88061 129.52978 138.76393 Random Glucose Calcium Phosphorus Magnesium Total Bilirubin AST ALT Alkaline Phosphatase Total Protein Albumin Cortisol AM Sample 06/26/17 06/26/17 06/26/17 05:28 11:36 16:43 WBC RBC Hgb Hct MCV MCH MCHC RDW Plt Count MPV Neutrophils % Lymphocytes % Monocytes % Eosinophils % Basophils % Sodium Potassium Chloride Carbon Dioxide Anion Gap BUN Creatinine Creat Clearance w eGFR POC Glucometer 148.02569 202.89654 154.88591 Random Glucose Calcium Phosphorus Magnesium Total Bilirubin AST ALT Alkaline Phosphatase Total Protein Albumin Cortisol AM Sample 06/26/17 06/27/17 06/27/17 21:24 05:35 11:32 WBC RBC Hgb Hct MCV MCH MCHC RDW Plt Count MPV Neutrophils % Lymphocytes % Monocytes % Eosinophils % Basophils % Sodium Potassium Chloride Carbon Dioxide Anion Gap BUN Creatinine Creat Clearance w eGFR POC Glucometer 135.66329 130.83472 Random Glucose Calcium Phosphorus Magnesium Total Bilirubin AST ALT Alkaline Phosphatase Total Protein Albumin Cortisol AM Sample 15.8 06/27/17 06/27/17 06/28/17 17:36 22:00 06:30 WBC 11.4 H RBC 3.10 L Hgb 8.3 L Hct 26.3 L MCV 85.1 MCH 26.9 MCHC 31.6 L RDW 14.4 Plt Count 330 MPV 9.6 Neutrophils % 77.5 Lymphocytes % 9.8 D Monocytes % 6.9 Eosinophils % 4.7 H Basophils % 1.1 Sodium Potassium Chloride Carbon Dioxide Anion Gap BUN Creatinine Creat Clearance w eGFR POC Glucometer 97.60868 138.90852 Random Glucose Calcium Phosphorus Magnesium Total Bilirubin AST ALT Alkaline Phosphatase Total Protein Albumin Cortisol AM Sample 06/28/17 06:30 WBC RBC Hgb Hct MCV MCH MCHC RDW Plt Count MPV Neutrophils % Lymphocytes % Monocytes % Eosinophils % Basophils % Sodium 141 Potassium 3.7 Chloride 109 H Carbon Dioxide 24 Anion Gap 8 BUN 14 Creatinine 0.7 Creat Clearance w eGFR > 60 POC Glucometer Random Glucose 96 Calcium 7.3 L Phosphorus 2.4 L Magnesium 1.5 L Total Bilirubin 0.5 D AST 9 L ALT 15 Alkaline Phosphatase 77 Total Protein 4.5 L Albumin 1.5 L Cortisol AM Sample ASSESSMENT AND PLAN: Cellulitis / Abscess s/p Debridement Septic Shock Acute on Chronic Renal Failure Lactic Acidosis resolved Atrial Fibrillation Uncontrolled DM - continue antibiotics per ID - wound care - O2 to keep SpO2 >90% - NIPPV as needed to assist in work of breathing - monitor urine output, creatinine - replete and monitor lytes - glucose control - rate control - AC - Aspiration precautions - PO as tolerated - DVT prophylaxis - Floor Dr Andre Critical care time spent in reviewing chart, evaluating patient and formulating plan 36 min
--- NOTE | 2017-06-28 13:57 | PN ---
Progress Note, Physician Chief Complaint: AWAKE ALERT C/O PAIN WHEN DRESSING CHANGES OCCUR - Current Medication List Current Medications: Active Medications Acetaminophen (Tylenol -) 650 mg PO Q6H PRN PRN Reason: PAIN LEVEL 1-5 Last Admin: 06/26/17 07:34 Dose: 650 mg Apixaban (Eliquis -) 5 mg PO BID [facility] Last Admin: 06/28/17 09:31 Dose: 5 mg Artificial Tears (Artificial Tears) 1 drop OU TID [facility] Last Admin: 06/28/17 06:18 Dose: 1 drop Budesonide/Formoterol Fumarate (Symbicort 80/4.5mcg -) 2 puff IH BID [facility] Last Admin: 06/28/17 09:30 Dose: 2 puff Chlorhexidine Gluconate (Hibiclens For Decolonization -) 1 applic TP HS [facility] Last Admin: 06/27/17 22:01 Dose: 1 applic Collagenase (Santyl -) 1 applic TP DAILY [facility] Last Admin: 06/28/17 10:06 Dose: 1 applic Diltiazem HCl (Cardizem -) 30 mg PO QID [facility] Last Admin: 06/28/17 09:30 Dose: 30 mg Vancomycin HCl 750 mg/ (Dextrose) 250 mls @ 250 mls/hr IVPB Q24H [facility] PRN Reason: Protocol Last Admin: 06/27/17 17:33 Dose: 250 mls/hr Ertapenem 1 gm/ Sodium (Chloride) 100 mls @ 200 mls/hr IVPB DAILY [facility] PRN Reason: Protocol Last Admin: 06/28/17 10:05 Dose: 200 mls/hr Insulin Aspart (Novolog Vial Sliding Scale -) 1 vial SQ ACHS [facility] PRN Reason: Protocol Last Admin: 06/28/17 12:00 Dose: Not Given Insulin Detemir (Levemir Vial) 20 units SQ AM [facility] Last Admin: 06/28/17 06:17 Dose: 20 units Midodrine (Proamatine -) 10 mg PO TID-MID [facility] Last Admin: 06/28/17 09:33 Dose: 10 mg Ondansetron HCl (Zofran Injection) 4 mg IVPB Q6H PRN PRN Reason: NAUSEA Ondansetron HCl (Zofran Injection) 4 mg IVPUSH Q6H PRN PRN Reason: NAUSEA AND/OR VOMITING Pantoprazole Sodium (Protonix -) 40 mg PO DAILY [facility] Last Admin: 06/28/17 09:30 Dose: 40 mg Tramadol HCl (Ultram -) 50 mg PO Q6H PRN PRN Reason: PAIN LEVEL 4 - 6 Last Admin: 06/28/17 09:10 Dose: 50 mg - Objective Vital Signs: Vital Signs Temperature 98.4 F 06/28/17 10:00 Pulse Rate 105 H 06/28/17 12:00 Respiratory Rate 22 06/28/17 12:00 Blood Pressure 88/66 06/28/17 12:00 O2 Sat by Pulse Oximetry (%) 99 06/28/17 09:00 Constitutional: Yes: Mild Distress Eyes: Yes: WNL HENT: Yes: WNL Neck: Yes: WNL Cardiovascular: Yes: WNL Respiratory: Yes: WNL Gastrointestinal: Yes: WNL Musculoskeletal: Yes: Muscle Weakness Extremities: Yes: Deformity, Other Edema: Yes Peripheral Pulses WNL: Yes Integumentary: Yes: Pressure Ulcer, Venous Stasis Changes Wound/Incision: Yes: Dressing Dry and Intact Neurological: Yes: Pre-Existing Deficit, Other ...Motor Strength: LLE, RLE Psychiatric: Yes: Other Labs: CBC, BMP 06/28/17 06:30 06/28/17 06:30 INR, PTT INR 1.16 (0.82-1.09) H 06/18/17 20:30 Problem List - Problems (1) Renal failure (ARF), acute on chronic Code(s): N17.9 - ACUTE KIDNEY FAILURE, UNSPECIFIED; N18.9 - CHRONIC KIDNEY DISEASE, UNSPECIFIED (2) Ulcers of both lower extremities Code(s): L97.919 - NON-PRS CHRONIC ULC UNSP PRT OF R LOW LEG W UNSP SEVERITY; L97.929 - NON-PRS CHRONIC ULC UNSP PRT OF L LOW LEG W UNSP SEVERITY Qualifiers: Non-pressure ulcer stage: unspecified non-pressure ulcer stage Qualified Code(s): L97.919 - Non-pressure chronic ulcer of unspecified part of right lower leg with unspecified severity; L97.929 - Non-pressure chronic ulcer of unspecified part of left lower leg with unspecified severity; L97.929 - Non- pressure chronic ulcer of unspecified part of left lower leg with unspecified severity; L97.929 - Non-pressure chronic ulcer of unspecified part of left lower leg with unspecified severity; L97.929 - Non-pressure chronic ulcer of unspecified part of left lower leg with unspecified severity Assessment/Plan IV ABX PAIN CONTROL DRESSING CHANGE ID AND VASC SX FOLOW UP SN[facility]
--- NOTE | 2017-06-28 15:36 | PN ---
Progress Note, Physician History of Present Illness: main issue pain while changing the dressing otherwise comfortable bp still labile - Current Medication List Current Medications: Active Medications Acetaminophen (Tylenol -) 650 mg PO Q6H PRN PRN Reason: PAIN LEVEL 1-5 Last Admin: 06/26/17 07:34 Dose: 650 mg Amino Acids (Prosource No Carb Liquid Pkt) 30 ml PO BID@0800,1730 [facility] Apixaban (Eliquis -) 5 mg PO BID [facility] Last Admin: 06/28/17 09:31 Dose: 5 mg Artificial Tears (Artificial Tears) 1 drop OU TID [facility] Last Admin: 06/28/17 06:18 Dose: 1 drop Ascorbic Acid (Vitamin C -) 500 mg PO DAILY [facility] Budesonide/Formoterol Fumarate (Symbicort 80/4.5mcg -) 2 puff IH BID [facility] Last Admin: 06/28/17 09:30 Dose: 2 puff Chlorhexidine Gluconate (Hibiclens For Decolonization -) 1 applic TP HS [facility] Last Admin: 06/27/17 22:01 Dose: 1 applic Collagenase (Santyl -) 1 applic TP DAILY [facility] Last Admin: 06/28/17 10:06 Dose: 1 applic Diltiazem HCl (Cardizem -) 30 mg PO QID [facility] Last Admin: 06/28/17 09:30 Dose: 30 mg Vancomycin HCl 750 mg/ (Dextrose) 250 mls @ 250 mls/hr IVPB Q24H [facility] PRN Reason: Protocol Last Admin: 06/27/17 17:33 Dose: 250 mls/hr Ertapenem 1 gm/ Sodium (Chloride) 100 mls @ 200 mls/hr IVPB DAILY [facility] PRN Reason: Protocol Last Admin: 06/28/17 10:05 Dose: 200 mls/hr Insulin Aspart (Novolog Vial Sliding Scale -) 1 vial SQ ACHS [facility] PRN Reason: Protocol Last Admin: 06/28/17 12:00 Dose: Not Given Insulin Detemir (Levemir Vial) 20 units SQ AM [facility] Last Admin: 06/28/17 06:17 Dose: 20 units Lactobacillus Acidophilus (Bacid -) 1 tab PO DAILY [facility] Midodrine (Proamatine -) 10 mg PO TID-MID [facility] Last Admin: 06/28/17 09:33 Dose: 10 mg Ondansetron HCl (Zofran Injection) 4 mg IVPB Q6H PRN PRN Reason: NAUSEA Ondansetron HCl (Zofran Injection) 4 mg IVPUSH Q6H PRN PRN Reason: NAUSEA AND/OR VOMITING Pantoprazole Sodium (Protonix -) 40 mg PO DAILY [facility] Last Admin: 06/28/17 09:30 Dose: 40 mg Tramadol HCl (Ultram -) 50 mg PO Q6H PRN PRN Reason: PAIN LEVEL 4 - 6 Last Admin: 06/28/17 09:10 Dose: 50 mg - Objective Vital Signs: Vital Signs Temperature 98.4 F 06/28/17 10:00 Pulse Rate 90 06/28/17 14:00 Respiratory Rate 21 06/28/17 14:00 Blood Pressure 97/56 06/28/17 14:00 O2 Sat by Pulse Oximetry (%) 99 06/28/17 09:00 Constitutional: Yes: No Distress, Calm Neck: Yes: Supple, Trachea Midline Cardiovascular: Yes: S1, S2 Respiratory: Yes: Regular, CTA Bilaterally Gastrointestinal: Yes: Normal Bowel Sounds, Soft Musculoskeletal: Yes: WNL Extremities: Yes: Other Neurological: Yes: Alert, Oriented Psychiatric: Yes: Alert, Oriented Labs: CBC, BMP 06/28/17 06:30 06/28/17 06:30 INR, PTT INR 1.16 (0.82-1.09) H 06/18/17 20:30 Assessment/Plan Problem List - Problems (1) Hyperkalemia Code(s): E87.5 - HYPERKALEMIA (2) Ulcers of both lower extremities Code(s): L97.919 - NON-PRS CHRONIC ULC UNSP PRT OF R LOW LEG W UNSP SEVERITY; L97.929 - NON-PRS CHRONIC ULC UNSP PRT OF L LOW LEG W UNSP SEVERITY Qualifiers: Non-pressure ulcer stage: unspecified non-pressure ulcer stage Qualified Code(s): L97.919 - Non-pressure chronic ulcer of unspecified part of right lower leg with unspecified severity; L97.929 - Non-pressure chronic ulcer of unspecified part of left lower leg with unspecified severity; L97.929 - Non- pressure chronic ulcer of unspecified part of left lower leg with unspecified severity; L97.929 - Non-pressure chronic ulcer of unspecified part of left lower leg with unspecified severity; L97.929 - Non-pressure chronic ulcer of unspecified part of left lower leg with unspecified severity (3) Unable to ambulate Code(s): R26.2 - DIFFICULTY IN WALKING, NOT ELSEWHERE CLASSIFIED (4) NOVA (acute kidney injury) Code(s): N17.9 - ACUTE KIDNEY FAILURE, UNSPECIFIED (5) Acute renal failure Code(s): N17.9 - ACUTE KIDNEY FAILURE, UNSPECIFIED (6) Afib Code(s): I48.91 - UNSPECIFIED ATRIAL FIBRILLATION sepsis leukocytosis electrolyte abn vanco trough noted plan' continue abx wound care follow vanco levels rest as per icu cc time 40 min
[2017-06-28] MEDS: VANCOMYCIN 750 MG in DEXTROSE 5%-WATER - 250 ML IVPB SCH (17:00)
--- NOTE | 2017-06-28 17:00 | PN ---
Progress Note, Physician History of Present Illness: Pt seen and examined at bedside. She is awake and alert. - Current Medication List Current Medications: Active Medications Acetaminophen (Tylenol -) 650 mg PO Q6H PRN PRN Reason: PAIN LEVEL 1-5 Last Admin: 06/26/17 07:34 Dose: 650 mg Amino Acids (Prosource No Carb Liquid Pkt) 30 ml PO BID@0800,1730 [facility] Apixaban (Eliquis -) 5 mg PO BID [facility] Last Admin: 06/28/17 09:31 Dose: 5 mg Artificial Tears (Artificial Tears) 1 drop OU TID [facility] Last Admin: 06/28/17 06:18 Dose: 1 drop Ascorbic Acid (Vitamin C -) 500 mg PO DAILY [facility] Budesonide/Formoterol Fumarate (Symbicort 80/4.5mcg -) 2 puff IH BID [facility] Last Admin: 06/28/17 09:30 Dose: 2 puff Chlorhexidine Gluconate (Hibiclens For Decolonization -) 1 applic TP HS [facility] Last Admin: 06/27/17 22:01 Dose: 1 applic Collagenase (Santyl -) 1 applic TP DAILY [facility] Last Admin: 06/28/17 10:06 Dose: 1 applic Diltiazem HCl (Cardizem -) 30 mg PO QID [facility] Last Admin: 06/28/17 14:00 Dose: 30 mg Vancomycin HCl 750 mg/ (Dextrose) 250 mls @ 250 mls/hr IVPB Q24H [facility] PRN Reason: Protocol Last Admin: 06/27/17 17:33 Dose: 250 mls/hr Ertapenem 1 gm/ Sodium (Chloride) 100 mls @ 200 mls/hr IVPB DAILY [facility] PRN Reason: Protocol Last Admin: 06/28/17 10:05 Dose: 200 mls/hr Insulin Aspart (Novolog Vial Sliding Scale -) 1 vial SQ ACHS [facility] PRN Reason: Protocol Last Admin: 06/28/17 12:00 Dose: Not Given Insulin Detemir (Levemir Vial) 20 units SQ AM [facility] Last Admin: 06/28/17 06:17 Dose: 20 units Lactobacillus Acidophilus (Bacid -) 1 tab PO DAILY [facility] Midodrine (Proamatine -) 10 mg PO TID-MID [facility] Last Admin: 06/28/17 09:33 Dose: 10 mg Ondansetron HCl (Zofran Injection) 4 mg IVPB Q6H PRN PRN Reason: NAUSEA Ondansetron HCl (Zofran Injection) 4 mg IVPUSH Q6H PRN PRN Reason: NAUSEA AND/OR VOMITING Pantoprazole Sodium (Protonix -) 40 mg PO DAILY [facility] Last Admin: 06/28/17 09:30 Dose: 40 mg Tramadol HCl (Ultram -) 50 mg PO Q6H PRN PRN Reason: PAIN LEVEL 4 - 6 Last Admin: 06/28/17 15:46 Dose: 50 mg - Objective Vital Signs: Vital Signs Temperature 98.4 F 06/28/17 10:00 Pulse Rate 90 06/28/17 14:00 Respiratory Rate 21 06/28/17 14:00 Blood Pressure 97/56 06/28/17 14:00 O2 Sat by Pulse Oximetry (%) 99 06/28/17 09:00 Constitutional: Yes: Calm Eyes: Yes: Conjunctiva Clear HENT: Yes: Atraumatic Cardiovascular: Yes: S1, S2 Respiratory: Yes: CTA Bilaterally Gastrointestinal: Yes: Soft, Abdomen, Obese Genitourinary: Yes: Incontinence Musculoskeletal: Yes: Muscle Weakness Edema: Yes Integumentary: Yes: Erythema, Other (bilateral lower ext ulcers) Neurological: Yes: Oriented Psychiatric: Yes: Oriented Labs: CBC, BMP 06/28/17 06:30 06/28/17 06:30 INR, PTT INR 1.16 (0.82-1.09) H 06/18/17 20:30 Problem List - Problems (1) Hyperkalemia Code(s): E87.5 - HYPERKALEMIA (2) Ulcers of both lower extremities Code(s): L97.919 - NON-PRS CHRONIC ULC UNSP PRT OF R LOW LEG W UNSP SEVERITY; L97.929 - NON-PRS CHRONIC ULC UNSP PRT OF L LOW LEG W UNSP SEVERITY Qualifiers: Non-pressure ulcer stage: unspecified non-pressure ulcer stage Qualified Code(s): L97.919 - Non-pressure chronic ulcer of unspecified part of right lower leg with unspecified severity; L97.929 - Non-pressure chronic ulcer of unspecified part of left lower leg with unspecified severity; L97.929 - Non- pressure chronic ulcer of unspecified part of left lower leg with unspecified severity; L97.929 - Non-pressure chronic ulcer of unspecified part of left lower leg with unspecified severity; L97.929 - Non-pressure chronic ulcer of unspecified part of left lower leg with unspecified severity (3) Unable to ambulate Code(s): R26.2 - DIFFICULTY IN WALKING, NOT ELSEWHERE CLASSIFIED (4) NOVA (acute kidney injury) Code(s): N17.9 - ACUTE KIDNEY FAILURE, UNSPECIFIED (5) Acute renal failure Code(s): N17.9 - ACUTE KIDNEY FAILURE, UNSPECIFIED (6) Afib Code(s): I48.91 - UNSPECIFIED ATRIAL FIBRILLATION Assessment/Plan Current Medications Generic Name Dose Route Start Last Admin Trade Name Freq PRN Reason Stop Dose Admin Acetaminophen 650 mg 06/26/17 07:08 06/26/17 07:34 Tylenol - PO 650 mg Q6H PRN Administration PAIN LEVEL 1-5 Amino Acids 30 ml 06/28/17 17:30 Prosource No Carb Liquid Pkt PO BID@0800,1730 [facility] Apixaban 5 mg 06/24/17 22:00 06/28/17 09:31 Eliquis - PO 5 mg BID [facility] Administration Artificial Tears 1 drop 06/22/17 22:00 06/28/17 06:18 Artificial Tears OU 1 drop TID [facility] Administration Ascorbic Acid 500 mg 06/29/17 10:00 Vitamin C - PO DAILY [facility] Budesonide/Formoterol Fumarate 2 puff 06/21/17 11:00 06/28/17 09:30 Symbicort 80/4.5mcg - IH 2 puff BID [facility] Administration Chlorhexidine Gluconate 1 applic 06/20/17 22:00 06/27/17 22:01 Hibiclens For Decolonization - TP 1 applic HS [facility] Administration Collagenase 1 applic 06/26/17 10:00 06/28/17 10:06 Santyl - TP 1 applic DAILY [facility] Administration Diltiazem HCl 30 mg 06/27/17 14:00 06/28/17 14:00 Cardizem - PO 30 mg QID [facility] Administration Vancomycin HCl 750 mg/ 250 mls @ 250 mls/hr 06/21/17 16:00 06/27/17 17:33 Dextrose IVPB 250 mls/hr Q24H [facility] Administration Protocol Ertapenem 1 gm/ Sodium 100 mls @ 200 mls/hr 06/26/17 10:00 06/28/17 10:05 Chloride IVPB 200 mls/hr DAILY [facility] Administration Protocol Insulin Aspart 1 vial 06/20/17 16:30 06/28/17 12:00 Novolog Vial Sliding Scale - SQ Not Given ACHS [facility] Protocol Insulin Detemir 20 units 06/25/17 10:40 06/28/17 06:17 Levemir Vial SQ 20 units AM [facility] Administration Lactobacillus Acidophilus 1 tab 06/29/17 10:00 Bacid - PO DAILY [facility] Midodrine 10 mg 06/27/17 11:32 06/28/17 09:33 Proamatine - PO 10 mg TID-MID [facility] Administration Ondansetron HCl 4 mg 06/20/17 15:01 Zofran Injection IVPB Q6H PRN NAUSEA Ondansetron HCl 4 mg 06/20/17 15:01 Zofran Injection IVPUSH Q6H PRN NAUSEA AND/OR VOMITING Pantoprazole Sodium 40 mg 06/25/17 19:30 06/28/17 09:30 Protonix - PO 40 mg DAILY [facility] Administration Tramadol HCl 50 mg 06/26/17 10:30 06/28/17 15:46 Ultram - PO 50 mg Q6H PRN Administration PAIN LEVEL 4 - 6 Laboratory Tests 06/27/17 05:35 Cortisol AM Sample 15.8 Impression 1. NOVA 2. hyperkalemia resolved 3. obesity 4. DM 5. a-fib 6. HTN 7. chronic lower extremity ulcers 8. gastritis 9. sepsis 10. hyponatremia 11. hypokalemia 12. hypotension Plan - monitor bp - cont midodrine - replace lytes - discussed with ICU team - avoid nsaids Dr Epstein
[2017-06-28] MEDS: AMINO ACIDS/PROTEIN HYDROLYS 30 ML LIQUID.PKT PO SCH (18:05)
[2017-06-29 06:13] LABS: BASO % 1.4 % (0-2.0); EOS % 4.3 % (0-4.5); HEMATOCRIT 28.4 % (32.4-45.2); HEMOGLOBIN 9.1 GM/dL (10.7-15.3); LYMPH % 8.5 % (8-40); MCH 27.2 pg (25.7-33.7); MEAN CELL VOLUME 85.1 fl (80-96); MEAN PLT VOLUME 9.2 fl (7.5-11.1); MONO % 6.3 % (3.8-10.2); NEUT % 79.5 % (42.8-82.8); PLATELET COUNT 382 K/MM3 (134-434); RBC 3.34 M/mm3 (3.60-5.2); RDW 14.7 % (11.6-15.6); WHITE BLOOD COUNT 12.4 K/mm3 (4.0-10.0)
[2017-06-29] MEDS: INSULIN SLIDING SCALE (NOVOLOG) 1 VIAL SQ SCH ×3 (06:30→22:18)
[2017-06-29] MEDS: ARTIFICIAL TEARS (POLYVINYL ALCOHOL 1.4%) OPTH DROPS OU SCH ×3 (06:30→22:18)
[2017-06-29] MEDS: INSULIN DETEMIR 100 UNITS/ML MDV SQ SCH (06:31)
[2017-06-29 06:51] LABS: ALBUMIN 1.7 g/dl (3.4-5.0); ANION GAP 7 (8-16); BLOOD UREA NITROGEN 17 mg/dL (7-18); CALCIUM 7.5 mg/dL (8.5-10.1); CHLORIDE 110 mmol/L (98-107); CO2 25 mmol/L (21-32); CREATININE 0.7 mg/dL (0.55-1.02); GLUCOSE,RANDOM 113 mg/dL (74-106); MAGNESIUM 1.8 mg/dL (1.8-2.4); POTASSIUM 4.1 mmol/L (3.5-5.1); SGOT/AST 8 U/L (15-37); SGPT/ALT 15 U/L (12-78); SODIUM 142 mmol/L (136-145)
[2017-06-29 06:53] LABS: ALK PHOS 82 U/L (45-117); BILIRUBIN,TOTAL 0.3 mg/dL (0.2-1.0)
[2017-06-29] MEDS ORDERED: PT OWN MED DRAWER 7, Y5N ONE ×2 (09:40→21:41)
[2017-06-29] MEDS: COLLAGENASE CLOSTRIDIUM HIST. 30 GRAMS TUBE TP SCH (10:00)
[2017-06-29] MEDS: AMINO ACIDS/PROTEIN HYDROLYS 30 ML LIQUID.PKT PO SCH ×2 (10:19→19:34)
[2017-06-29] MEDS: dilTIAZem HCL 30 MG TABLET (FP) PO SCH ×4 (10:22→22:17)
[2017-06-29] MEDS: LACTOBACILLUS ACIDOPHILUS 1 EACH TAB (FP) PO SCH (10:22)
[2017-06-29] MEDS: PANTOPRAZOLE 40 MG TABLET (FP) PO SCH (10:22)
[2017-06-29] MEDS: MIDODRINE HCL 5 MG TABLET PO SCH ×3 (10:22→19:35)
[2017-06-29] MEDS: APIXABAN 5 MG TABLET PO SCH ×2 (10:23→22:17)
[2017-06-29] MEDS: ASCORBIC ACID 500 MG TABLET (FP) PO SCH (10:23)
[2017-06-29] MEDS: BUDESONIDE/FORMETEROL FUMARATE 80/4.5 mcg INHALER IH SCH ×3 (10:23→22:51)
--- NOTE | 2017-06-29 10:29 | PN ---
Progress Note (short form) - Note Progress Note: PULMONARY/CCM Pt seen and examined in the ICU. Blood pressure borderline low this AM. Denies shortness of breath or chest pain. No fevers or chills. Last Vital Signs Temp Pulse Resp BP Pulse Ox 98.6 F 87 21 95/56 99 06/29/17 06:00 06/29/17 08:00 06/29/17 08:00 06/29/17 08:00 06/28/17 20:11 Intake & Output 06/26/17 06/27/17 06/28/17 06/29/17 23:59 23:59 23:59 23:59 Intake Total 473 661 4761 Output Total 400 Balance 019 922 2153 Weight 128.2 kg 129.1 kg 127.545 kg 127.051 kg Gen: NAD at rest Heart: RRR Lung: decreased breath sounds at the bases Abd: soft, nontender Ext: dressings with drainage CBC, BMP 06/29/17 05:50 06/29/17 05:50 Active Medications Acetaminophen (Tylenol -) 650 mg PO Q6H PRN PRN Reason: PAIN LEVEL 1-5 Last Admin: 06/26/17 07:34 Dose: 650 mg Amino Acids (Prosource No Carb Liquid Pkt) 30 ml PO BID@0800,1730 [facility] Last Admin: 06/29/17 10:19 Dose: 30 ml Apixaban (Eliquis -) 5 mg PO BID [facility] Last Admin: 06/29/17 10:23 Dose: 5 mg Artificial Tears (Artificial Tears) 1 drop OU TID [facility] Last Admin: 06/29/17 06:30 Dose: 1 drop Ascorbic Acid (Vitamin C -) 500 mg PO DAILY [facility] Last Admin: 06/29/17 10:23 Dose: 500 mg Budesonide/Formoterol Fumarate (Symbicort 80/4.5mcg -) 2 puff IH BID [facility] Last Admin: 06/29/17 10:23 Dose: 2 puff Collagenase (Santyl -) 1 applic TP DAILY [facility] Last Admin: 06/28/17 10:06 Dose: 1 applic Diltiazem HCl (Cardizem -) 30 mg PO QID [facility] Last Admin: 06/29/17 10:22 Dose: 30 mg Vancomycin HCl 750 mg/ (Dextrose) 250 mls @ 250 mls/hr IVPB Q24H [facility] PRN Reason: Protocol Last Admin: 06/28/17 17:00 Dose: 250 mls/hr Ertapenem 1 gm/ Sodium (Chloride) 100 mls @ 200 mls/hr IVPB DAILY [facility] PRN Reason: Protocol Last Admin: 06/28/17 10:05 Dose: 200 mls/hr Insulin Aspart (Novolog Vial Sliding Scale -) 1 vial SQ ACHS [facility] PRN Reason: Protocol Last Admin: 06/29/17 06:30 Dose: 2 units Insulin Detemir (Levemir Vial) 20 units SQ AM [facility] Last Admin: 06/29/17 06:31 Dose: 20 units Lactobacillus Acidophilus (Bacid -) 1 tab PO DAILY [facility] Last Admin: 06/29/17 10:22 Dose: 1 tab Midodrine (Proamatine -) 10 mg PO TID-MID [facility] Last Admin: 06/29/17 10:22 Dose: 10 mg Ondansetron HCl (Zofran Injection) 4 mg IVPB Q6H PRN PRN Reason: NAUSEA Ondansetron HCl (Zofran Injection) 4 mg IVPUSH Q6H PRN PRN Reason: NAUSEA AND/OR VOMITING Pantoprazole Sodium (Protonix -) 40 mg PO DAILY [facility] Last Admin: 06/29/17 10:22 Dose: 40 mg Tramadol HCl (Ultram -) 50 mg PO Q6H PRN PRN Reason: PAIN LEVEL 4 - 6 Last Admin: 06/28/17 15:46 Dose: 50 mg A/P Cellulitis/r/o Leg Abscesses s/p Debridement Septic Shock resolving Acute on Chronic Renal Failure improving Lactic Acidosis resolved Atrial Fibrillation Uncontrolled DM - continue antibiotics - wound care - O2 to keep SpO2 >90% - BiPAP as needed to assist in work of breathing - monitor urine output, creatinine - replete and monitor lytes - off pressors, maintain MAP >65 - continue midodrine - glucose control - rate control - continue anticoagulation - aspiration precautions - PO as tolerated - DVT prophylaxis - continue ICU monitoring for now critical care time spent in reviewing chart, evaluating patient and formulating plan 35 min
[2017-06-29] MEDS: ERTAPENEM SODIUM 1 GM in SODIUM CHLORIDE 100 ML IVPB SCH (11:30)
[2017-06-29] MEDS ORDERED: HEMOQUE TEST 1 EACH EACH ONE (12:40)
--- NOTE | 2017-06-29 14:20 | PN ---
Progress Note, Physician History of Present Illness: Pt seen and examined. Charts/results reviewed. Pt c/o pain in LE especially during leg dressing changes. Otherwise no fever/chills, tolerating antibiotics. Denies abd pain/diarrhea. - Current Medication List Current Medications: Active Medications Acetaminophen (Tylenol -) 650 mg PO Q6H PRN PRN Reason: PAIN LEVEL 1-5 Last Admin: 06/26/17 07:34 Dose: 650 mg Amino Acids (Prosource No Carb Liquid Pkt) 30 ml PO BID@0800,1730 [facility] Last Admin: 06/29/17 10:19 Dose: 30 ml Apixaban (Eliquis -) 5 mg PO BID [facility] Last Admin: 06/29/17 10:23 Dose: 5 mg Artificial Tears (Artificial Tears) 1 drop OU TID [facility] Last Admin: 06/29/17 06:30 Dose: 1 drop Ascorbic Acid (Vitamin C -) 500 mg PO DAILY [facility] Last Admin: 06/29/17 10:23 Dose: 500 mg Budesonide/Formoterol Fumarate (Symbicort 80/4.5mcg -) 2 puff IH BID [facility] Last Admin: 06/29/17 10:23 Dose: 2 puff Collagenase (Santyl -) 1 applic TP DAILY [facility] Last Admin: 06/28/17 10:06 Dose: 1 applic Diltiazem HCl (Cardizem -) 30 mg PO QID [facility] Last Admin: 06/29/17 10:22 Dose: 30 mg Vancomycin HCl 750 mg/ (Dextrose) 250 mls @ 250 mls/hr IVPB Q24H [facility] PRN Reason: Protocol Last Admin: 06/28/17 17:00 Dose: 250 mls/hr Ertapenem 1 gm/ Sodium (Chloride) 100 mls @ 200 mls/hr IVPB DAILY [facility] PRN Reason: Protocol Last Admin: 06/28/17 10:05 Dose: 200 mls/hr Insulin Aspart (Novolog Vial Sliding Scale -) 1 vial SQ ACHS [facility] PRN Reason: Protocol Last Admin: 06/29/17 06:30 Dose: 2 units Insulin Detemir (Levemir Vial) 20 units SQ AM [facility] Last Admin: 06/29/17 06:31 Dose: 20 units Lactobacillus Acidophilus (Bacid -) 1 tab PO DAILY [facility] Last Admin: 06/29/17 10:22 Dose: 1 tab Midodrine (Proamatine -) 10 mg PO TID-MID [facility] Last Admin: 06/29/17 10:22 Dose: 10 mg Ondansetron HCl (Zofran Injection) 4 mg IVPB Q6H PRN PRN Reason: NAUSEA Ondansetron HCl (Zofran Injection) 4 mg IVPUSH Q6H PRN PRN Reason: NAUSEA AND/OR VOMITING Pantoprazole Sodium (Protonix -) 40 mg PO DAILY [facility] Last Admin: 06/29/17 10:22 Dose: 40 mg - Objective Vital Signs: Vital Signs Temperature 98.1 F 06/29/17 10:00 Pulse Rate 98 H 06/29/17 10:00 Respiratory Rate 22 06/29/17 10:00 Blood Pressure 89/49 06/29/17 10:00 O2 Sat by Pulse Oximetry (%) 99 06/29/17 09:00 Constitutional: Yes: No Distress Cardiovascular: Yes: Regular Rate and Rhythm Respiratory: Yes: CTA Bilaterally Gastrointestinal: Yes: Normal Bowel Sounds, Soft Genitourinary: Yes: WNL Integumentary: Yes: Other (b/L LE ulcers with dressings intact, +tenderness, decreased swelling) Neurological: Yes: Alert, Oriented Labs: CBC, BMP 06/29/17 05:50 06/29/17 05:50 INR, PTT INR 1.16 (0.82-1.09) H 06/18/17 20:30 Problem List - Problems (1) Unable to ambulate Code(s): R26.2 - DIFFICULTY IN WALKING, NOT ELSEWHERE CLASSIFIED (2) Venous stasis Code(s): I87.8 - OTHER SPECIFIED DISORDERS OF VEINS (3) NOVA (acute kidney injury) Code(s): N17.9 - ACUTE KIDNEY FAILURE, UNSPECIFIED (4) Cellulitis Code(s): L03.90 - CELLULITIS, UNSPECIFIED Qualifiers: Site of cellulitis of extremity: lower extremity Laterality: right (5) DM2 (diabetes mellitus, type 2) Code(s): E11.9 - TYPE 2 DIABETES MELLITUS WITHOUT COMPLICATIONS Qualifiers: Diabetes mellitus complication detail: with other circulatory complications (6) Sepsis Code(s): A41.9 - SEPSIS, UNSPECIFIED ORGANISM Qualifiers: Sepsis type: sepsis due to unspecified organism Qualified Code(s): A41.9 - Sepsis, unspecified organism Assessment/Plan - LE cellulitis b/l - resolved NOVA s/p sepsis -- continue current antibiotics -- repeat cbc, monitor vancomycin levels - wound care/ pain control cc time 40 min
[2017-06-29] MEDS: traMADol HCL 50 MG TABLET PO PRN (14:43)
--- NOTE | 2017-06-29 15:09 | PN ---
Progress Note, Physician Chief Complaint: AWAKE ALERT C/O PAIN WHEN DRESSING CHANGES OCCUR - Current Medication List Current Medications: Active Medications Acetaminophen (Tylenol -) 650 mg PO Q6H PRN PRN Reason: PAIN LEVEL 1-5 Last Admin: 06/26/17 07:34 Dose: 650 mg Amino Acids (Prosource No Carb Liquid Pkt) 30 ml PO BID@0800,1730 [facility] Last Admin: 06/29/17 10:19 Dose: 30 ml Apixaban (Eliquis -) 5 mg PO BID [facility] Last Admin: 06/29/17 10:23 Dose: 5 mg Artificial Tears (Artificial Tears) 1 drop OU TID [facility] Last Admin: 06/29/17 14:46 Dose: 1 drop Ascorbic Acid (Vitamin C -) 500 mg PO DAILY [facility] Last Admin: 06/29/17 10:23 Dose: 500 mg Budesonide/Formoterol Fumarate (Symbicort 80/4.5mcg -) 2 puff IH BID [facility] Last Admin: 06/29/17 10:23 Dose: 2 puff Collagenase (Santyl -) 1 applic TP DAILY [facility] Last Admin: 06/28/17 10:06 Dose: 1 applic Diltiazem HCl (Cardizem -) 30 mg PO QID [facility] Last Admin: 06/29/17 14:48 Dose: 30 mg Vancomycin HCl 750 mg/ (Dextrose) 250 mls @ 250 mls/hr IVPB Q24H [facility] PRN Reason: Protocol Last Admin: 06/28/17 17:00 Dose: 250 mls/hr Ertapenem 1 gm/ Sodium (Chloride) 100 mls @ 200 mls/hr IVPB DAILY [facility] PRN Reason: Protocol Last Admin: 06/28/17 10:05 Dose: 200 mls/hr Insulin Aspart (Novolog Vial Sliding Scale -) 1 vial SQ ACHS [facility] PRN Reason: Protocol Last Admin: 06/29/17 12:00 Dose: Not Given Insulin Detemir (Levemir Vial) 20 units SQ AM [facility] Last Admin: 06/29/17 06:31 Dose: 20 units Lactobacillus Acidophilus (Bacid -) 1 tab PO DAILY [facility] Last Admin: 06/29/17 10:22 Dose: 1 tab Midodrine (Proamatine -) 10 mg PO TID-MID [facility] Last Admin: 06/29/17 14:45 Dose: 10 mg Ondansetron HCl (Zofran Injection) 4 mg IVPB Q6H PRN PRN Reason: NAUSEA Ondansetron HCl (Zofran Injection) 4 mg IVPUSH Q6H PRN PRN Reason: NAUSEA AND/OR VOMITING Pantoprazole Sodium (Protonix -) 40 mg PO DAILY [facility] Last Admin: 06/29/17 10:22 Dose: 40 mg Tramadol HCl (Ultram -) 50 mg PO Q6H PRN PRN Reason: PAIN LEVEL 4 - 6 Last Admin: 06/29/17 14:43 Dose: 50 mg - Objective Vital Signs: Vital Signs Temperature 99.4 F 06/29/17 14:00 Pulse Rate 85 06/29/17 14:00 Respiratory Rate 26 H 06/29/17 14:00 Blood Pressure 89/61 06/29/17 14:00 O2 Sat by Pulse Oximetry (%) 99 06/29/17 09:00 Constitutional: Yes: Mild Distress Eyes: Yes: WNL HENT: Yes: WNL Neck: Yes: WNL Cardiovascular: Yes: WNL Respiratory: Yes: WNL Gastrointestinal: Yes: WNL Genitourinary: Yes: WNL Musculoskeletal: Yes: Back Pain, Muscle Weakness Extremities: Yes: Other Edema: Yes Peripheral Pulses WNL: Yes Integumentary: Yes: Pressure Ulcer, Venous Stasis Changes Wound/Incision: Yes: Dressing Dry and Intact, Unapproximated Neurological: Yes: Pre-Existing Deficit, Unsteady Gait, Weakness ...Motor Strength: LLE, RLE Psychiatric: Yes: Other Labs: CBC, BMP 06/29/17 05:50 06/29/17 05:50 INR, PTT INR 1.16 (0.82-1.09) H 06/18/17 20:30 Problem List - Problems (1) Renal failure (ARF), acute on chronic Code(s): N17.9 - ACUTE KIDNEY FAILURE, UNSPECIFIED; N18.9 - CHRONIC KIDNEY DISEASE, UNSPECIFIED (2) Ulcers of both lower extremities Code(s): L97.919 - NON-PRS CHRONIC ULC UNSP PRT OF R LOW LEG W UNSP SEVERITY; L97.929 - NON-PRS CHRONIC ULC UNSP PRT OF L LOW LEG W UNSP SEVERITY Qualifiers: Non-pressure ulcer stage: unspecified non-pressure ulcer stage Qualified Code(s): L97.919 - Non-pressure chronic ulcer of unspecified part of right lower leg with unspecified severity; L97.929 - Non-pressure chronic ulcer of unspecified part of left lower leg with unspecified severity; L97.929 - Non- pressure chronic ulcer of unspecified part of left lower leg with unspecified severity; L97.929 - Non-pressure chronic ulcer of unspecified part of left lower leg with unspecified severity; L97.929 - Non-pressure chronic ulcer of unspecified part of left lower leg with unspecified severity Assessment/Plan IV ABX PAIN CONTROL DRESSING CHANGE ID AND VASC SX FOLOW UP SNF DVT PROPHYLAXIS ON ELIQUIS
--- NOTE | 2017-06-29 16:39 | PN ---
Progress Note, Physician History of Present Illness: Pt seen and examined at bedside. She complains of generalized aches. - Current Medication List Current Medications: Active Medications Acetaminophen (Tylenol -) 650 mg PO Q6H PRN PRN Reason: PAIN LEVEL 1-5 Last Admin: 06/26/17 07:34 Dose: 650 mg Amino Acids (Prosource No Carb Liquid Pkt) 30 ml PO BID@0800,1730 [facility] Last Admin: 06/29/17 10:19 Dose: 30 ml Apixaban (Eliquis -) 5 mg PO BID [facility] Last Admin: 06/29/17 10:23 Dose: 5 mg Artificial Tears (Artificial Tears) 1 drop OU TID [facility] Last Admin: 06/29/17 14:46 Dose: 1 drop Ascorbic Acid (Vitamin C -) 500 mg PO DAILY [facility] Last Admin: 06/29/17 10:23 Dose: 500 mg Budesonide/Formoterol Fumarate (Symbicort 80/4.5mcg -) 2 puff IH BID [facility] Last Admin: 06/29/17 10:23 Dose: 2 puff Collagenase (Santyl -) 1 applic TP DAILY [facility] Last Admin: 06/28/17 10:06 Dose: 1 applic Diltiazem HCl (Cardizem -) 30 mg PO QID [facility] Last Admin: 06/29/17 14:48 Dose: 30 mg Vancomycin HCl 750 mg/ (Dextrose) 250 mls @ 250 mls/hr IVPB Q24H [facility] PRN Reason: Protocol Last Admin: 06/28/17 17:00 Dose: 250 mls/hr Ertapenem 1 gm/ Sodium (Chloride) 100 mls @ 200 mls/hr IVPB DAILY [facility] PRN Reason: Protocol Last Admin: 06/28/17 10:05 Dose: 200 mls/hr Insulin Aspart (Novolog Vial Sliding Scale -) 1 vial SQ ACHS [facility] PRN Reason: Protocol Last Admin: 06/29/17 12:00 Dose: Not Given Insulin Detemir (Levemir Vial) 20 units SQ AM [facility] Last Admin: 06/29/17 06:31 Dose: 20 units Lactobacillus Acidophilus (Bacid -) 1 tab PO DAILY [facility] Last Admin: 06/29/17 10:22 Dose: 1 tab Midodrine (Proamatine -) 10 mg PO TID-MID [facility] Last Admin: 06/29/17 14:45 Dose: 10 mg Ondansetron HCl (Zofran Injection) 4 mg IVPB Q6H PRN PRN Reason: NAUSEA Ondansetron HCl (Zofran Injection) 4 mg IVPUSH Q6H PRN PRN Reason: NAUSEA AND/OR VOMITING Pantoprazole Sodium (Protonix -) 40 mg PO DAILY [facility] Last Admin: 06/29/17 10:22 Dose: 40 mg Tramadol HCl (Ultram -) 50 mg PO Q6H PRN PRN Reason: PAIN LEVEL 4 - 6 Last Admin: 06/29/17 14:43 Dose: 50 mg - Objective Vital Signs: Vital Signs Temperature 99.4 F 06/29/17 14:00 Pulse Rate 85 06/29/17 14:00 Respiratory Rate 26 H 06/29/17 14:00 Blood Pressure 89/61 06/29/17 14:00 O2 Sat by Pulse Oximetry (%) 99 06/29/17 09:00 Constitutional: Yes: Calm Eyes: Yes: Conjunctiva Clear Neck: Yes: Supple Cardiovascular: Yes: S1, S2 Gastrointestinal: Yes: Soft, Abdomen, Obese Genitourinary: Yes: Incontinence Edema: Yes Edema: LLE: 1+, RLE: 1+ Wound/Incision: Yes: Open to air, Draining Neurological: Yes: Oriented Psychiatric: Yes: Oriented Labs: CBC, BMP 06/29/17 05:50 06/29/17 05:50 INR, PTT INR 1.16 (0.82-1.09) H 06/18/17 20:30 Problem List - Problems (1) Hyperkalemia Code(s): E87.5 - HYPERKALEMIA (2) Ulcers of both lower extremities Code(s): L97.919 - NON-PRS CHRONIC ULC UNSP PRT OF R LOW LEG W UNSP SEVERITY; L97.929 - NON-PRS CHRONIC ULC UNSP PRT OF L LOW LEG W UNSP SEVERITY Qualifiers: Non-pressure ulcer stage: unspecified non-pressure ulcer stage Qualified Code(s): L97.919 - Non-pressure chronic ulcer of unspecified part of right lower leg with unspecified severity; L97.929 - Non-pressure chronic ulcer of unspecified part of left lower leg with unspecified severity; L97.929 - Non- pressure chronic ulcer of unspecified part of left lower leg with unspecified severity; L97.929 - Non-pressure chronic ulcer of unspecified part of left lower leg with unspecified severity; L97.929 - Non-pressure chronic ulcer of unspecified part of left lower leg with unspecified severity (3) Unable to ambulate Code(s): R26.2 - DIFFICULTY IN WALKING, NOT ELSEWHERE CLASSIFIED (4) NOVA (acute kidney injury) Code(s): N17.9 - ACUTE KIDNEY FAILURE, UNSPECIFIED (5) Acute renal failure Code(s): N17.9 - ACUTE KIDNEY FAILURE, UNSPECIFIED (6) Afib Code(s): I48.91 - UNSPECIFIED ATRIAL FIBRILLATION Assessment/Plan Current Medications Generic Name Dose Route Start Last Admin Trade Name Freq PRN Reason Stop Dose Admin Acetaminophen 650 mg 06/26/17 07:08 06/26/17 07:34 Tylenol - PO 650 mg Q6H PRN Administration PAIN LEVEL 1-5 Amino Acids 30 ml 06/28/17 17:30 06/29/17 10:19 Prosource No Carb Liquid Pkt PO 30 ml BID@0800,1730 [facility] Administration Apixaban 5 mg 06/24/17 22:00 06/29/17 10:23 Eliquis - PO 5 mg BID [facility] Administration Artificial Tears 1 drop 06/22/17 22:00 06/29/17 14:46 Artificial Tears OU 1 drop TID [facility] Administration Ascorbic Acid 500 mg 06/29/17 10:00 06/29/17 10:23 Vitamin C - PO 500 mg DAILY [facility] Administration Budesonide/Formoterol Fumarate 2 puff 06/21/17 11:00 06/29/17 10:23 Symbicort 80/4.5mcg - IH 2 puff BID [facility] Administration Collagenase 1 applic 06/26/17 10:00 06/28/17 10:06 Santyl - TP 1 applic DAILY [facility] Administration Diltiazem HCl 30 mg 06/27/17 14:00 06/29/17 14:48 Cardizem - PO 30 mg QID [facility] Administration Vancomycin HCl 750 mg/ 250 mls @ 250 mls/hr 06/21/17 16:00 06/28/17 17:00 Dextrose IVPB 250 mls/hr Q24H [facility] Administration Protocol Ertapenem 1 gm/ Sodium 100 mls @ 200 mls/hr 06/26/17 10:00 06/28/17 10:05 Chloride IVPB 200 mls/hr DAILY [facility] Administration Protocol Insulin Aspart 1 vial 06/20/17 16:30 06/29/17 12:00 Novolog Vial Sliding Scale - SQ Not Given ACHS [facility] Protocol Insulin Detemir 20 units 06/25/17 10:40 06/29/17 06:31 Levemir Vial SQ 20 units AM [facility] Administration Lactobacillus Acidophilus 1 tab 06/29/17 10:00 06/29/17 10:22 Bacid - PO 1 tab DAILY [facility] Administration Midodrine 10 mg 06/27/17 11:32 06/29/17 14:45 Proamatine - PO 10 mg TID-MID [facility] Administration Ondansetron HCl 4 mg 06/20/17 15:01 Zofran Injection IVPB Q6H PRN NAUSEA Ondansetron HCl 4 mg 06/20/17 15:01 Zofran Injection IVPUSH Q6H PRN NAUSEA AND/OR VOMITING Pantoprazole Sodium 40 mg 06/25/17 19:30 06/29/17 10:22 Protonix - PO 40 mg DAILY [facility] Administration Tramadol HCl 50 mg 06/29/17 14:22 06/29/17 14:43 Ultram - PO 50 mg Q6H PRN Administration PAIN LEVEL 4 - 6 Impression 1. NOVA 2. hyperkalemia resolved 3. obesity 4. DM 5. a-fib 6. HTN 7. chronic lower extremity ulcers 8. gastritis 9. sepsis 10. hyponatremia 11. hypokalemia 12. hypotension Plan - cont current meds - monitor bp - cont abx - wound care - avoid nsaids - will follow PRN Dr Epstein
[2017-06-29] MEDS: VANCOMYCIN 750 MG in DEXTROSE 5%-WATER - 250 ML IVPB SCH (19:23)
[2017-06-30 06:19] LABS: BASO % 2.4 % (0-2.0); EOS % 4.4 % (0-4.5); HEMATOCRIT 26.4 % (32.4-45.2); HEMOGLOBIN 8.5 GM/dL (10.7-15.3); LYMPH % 14.4 % (8-40); MCH 27.3 pg (25.7-33.7); MCHC 32.1 g/dl (32.0-36.0); MEAN CELL VOLUME 85.3 fl (80-96); MONO % 8.1 % (3.8-10.2); NEUT % 70.7 % (42.8-82.8); PLATELET COUNT 414 K/MM3 (134-434); RBC 3.09 M/mm3 (3.60-5.2); RDW 14.2 % (11.6-15.6); WHITE BLOOD COUNT 10.9 K/mm3 (4.0-10.0)
[2017-06-30 07:48] LABS: CHLORIDE 112 mmol/L (98-107); SODIUM 145 mmol/L (136-145)
[2017-06-30 08:05] LABS: ALBUMIN 1.5 g/dl (3.4-5.0); ALK PHOS 77 U/L (45-117); ANION GAP 12 (8-16); BILIRUBIN,TOTAL 0.2 mg/dL (0.2-1.0); BLOOD UREA NITROGEN 19 mg/dL (7-18); CALCIUM 8.2 mg/dL (8.5-10.1); CO2 21 mmol/L (21-32); CREATININE 0.8 mg/dL (0.55-1.02); GLUCOSE,RANDOM 106 mg/dL (74-106); MAGNESIUM 1.8 mg/dL (1.8-2.4); PHOSPHOROUS 3.5 mg/dL (2.5-4.9); SGOT/AST 10 U/L (15-37); SGPT/ALT 14 U/L (12-78); TOT PROT 4.9 g/dl (6.4-8.2)
[2017-06-30] MEDS: INSULIN DETEMIR 100 UNITS/ML MDV SQ SCH (08:21)
[2017-06-30] MEDS: AMINO ACIDS/PROTEIN HYDROLYS 30 ML LIQUID.PKT PO SCH ×2 (08:22→17:21)
[2017-06-30] MEDS: ARTIFICIAL TEARS (POLYVINYL ALCOHOL 1.4%) OPTH DROPS OU SCH ×3 (08:23→22:16)
[2017-06-30] MEDS: INSULIN SLIDING SCALE (NOVOLOG) 1 VIAL SQ SCH ×5 (08:49→23:41)
[2017-06-30] MEDS: dilTIAZem HCL 30 MG TABLET (FP) PO SCH ×4 (09:02→22:15)
[2017-06-30] MEDS: LACTOBACILLUS ACIDOPHILUS 1 EACH TAB (FP) PO SCH (09:02)
[2017-06-30] MEDS: APIXABAN 5 MG TABLET PO SCH ×2 (09:03→22:15)
[2017-06-30] MEDS: MIDODRINE HCL 5 MG TABLET PO SCH ×3 (09:03→17:21)
[2017-06-30] MEDS: ASCORBIC ACID 500 MG TABLET (FP) PO SCH (09:05)
[2017-06-30] MEDS: BUDESONIDE/FORMETEROL FUMARATE 80/4.5 mcg INHALER IH SCH ×2 (09:08→22:15)
[2017-06-30] MEDS: COLLAGENASE CLOSTRIDIUM HIST. 30 GRAMS TUBE TP SCH (09:09)
[2017-06-30] MEDS: traMADol HCL 50 MG TABLET PO PRN ×3 (09:12→20:36)
[2017-06-30] MEDS: PANTOPRAZOLE 40 MG TABLET (FP) PO SCH (09:14)
[2017-06-30] MEDS ORDERED: PT OWN MED DRAWER 7, Y5N ONE ×3 (09:37→22:13)
--- NOTE | 2017-06-30 10:22 | PN ---
Progress Note (short form) - Note Progress Note: PULMONARY/CCM Pt seen and examined in the ICU. Denies shortness of breath or chest pain. No fevers or chills. + leg pain. Last Vital Signs Temp Pulse Resp BP Pulse Ox 98.6 F 89 22 95/63 99 06/30/17 06:00 06/30/17 08:00 06/30/17 06:00 06/30/17 08:00 06/29/17 21:00 Intake & Output 06/27/17 06/28/17 06/29/17 06/30/17 23:59 23:59 23:59 23:59 Intake Total 810 1480 100 50 Output Total 600 Balance 810 1480 -500 50 Weight 129.1 kg 127.545 kg 127.051 kg 125.191 kg Gen: NAD at rest Heart: RRR Lung: decreased breath sounds at the bases Abd: soft, nontender Ext: dressings with drainage CBC, BMP 06/30/17 05:58 06/30/17 05:58 Active Medications Acetaminophen (Tylenol -) 650 mg PO Q6H PRN PRN Reason: PAIN LEVEL 1-5 Last Admin: 06/26/17 07:34 Dose: 650 mg Amino Acids (Prosource No Carb Liquid Pkt) 30 ml PO BID@0800,1730 [facility] Last Admin: 06/30/17 08:22 Dose: 30 ml Apixaban (Eliquis -) 5 mg PO BID [facility] Last Admin: 06/30/17 09:03 Dose: 5 mg Artificial Tears (Artificial Tears) 1 drop OU TID [facility] Last Admin: 06/30/17 08:23 Dose: 1 drop Ascorbic Acid (Vitamin C -) 500 mg PO DAILY [facility] Last Admin: 06/30/17 09:05 Dose: 500 mg Budesonide/Formoterol Fumarate (Symbicort 80/4.5mcg -) 2 puff IH BID [facility] Last Admin: 06/30/17 09:08 Dose: 2 puff Collagenase (Santyl -) 1 applic TP DAILY [facility] Last Admin: 06/30/17 09:09 Dose: 1 applic Diltiazem HCl (Cardizem -) 30 mg PO QID [facility] Last Admin: 06/30/17 09:02 Dose: 30 mg Vancomycin HCl 750 mg/ (Dextrose) 250 mls @ 250 mls/hr IVPB Q24H [facility] PRN Reason: Protocol Last Admin: 06/29/17 19:23 Dose: 250 mls/hr Ertapenem 1 gm/ Sodium (Chloride) 100 mls @ 200 mls/hr IVPB DAILY [facility] PRN Reason: Protocol Last Admin: 06/29/17 11:30 Dose: 200 mls/hr Insulin Aspart (Novolog Vial Sliding Scale -) 1 vial SQ ACHS [facility] PRN Reason: Protocol Last Admin: 06/30/17 08:49 Dose: Not Given Insulin Detemir (Levemir Vial) 20 units SQ AM [facility] Last Admin: 06/30/17 08:21 Dose: 20 units Lactobacillus Acidophilus (Bacid -) 1 tab PO DAILY [facility] Last Admin: 06/30/17 09:02 Dose: 1 tab Midodrine (Proamatine -) 10 mg PO TID-MID [facility] Last Admin: 06/30/17 09:03 Dose: 10 mg Ondansetron HCl (Zofran Injection) 4 mg IVPB Q6H PRN PRN Reason: NAUSEA Ondansetron HCl (Zofran Injection) 4 mg IVPUSH Q6H PRN PRN Reason: NAUSEA AND/OR VOMITING Pantoprazole Sodium (Protonix -) 40 mg PO DAILY [facility] Last Admin: 06/30/17 09:14 Dose: 40 mg Tramadol HCl (Ultram -) 50 mg PO Q6H PRN PRN Reason: PAIN LEVEL 4 - 6 Last Admin: 06/30/17 09:12 Dose: 50 mg A/P Cellulitis/r/o Leg Abscesses s/p Debridement Septic Shock resolving Acute on Chronic Renal Failure improving Lactic Acidosis resolved Atrial Fibrillation Uncontrolled DM - continue antibiotics - wound care - O2 to keep SpO2 >90% - BiPAP as needed to assist in work of breathing - monitor urine output, creatinine - replete and monitor lytes - off pressors, maintain MAP >65 - continue midodrine - glucose control - rate control - continue anticoagulation - aspiration precautions - PO as tolerated - DVT prophylaxis - can monitor on floor critical care time spent in reviewing chart, evaluating patient and formulating plan 35 min
[2017-06-30] MEDS: ERTAPENEM SODIUM 1 GM in SODIUM CHLORIDE 100 ML IVPB SCH (11:45)
--- NOTE | 2017-06-30 11:46 | PN ---
Progress Note, Physician History of Present Illness: Pt seen and examined. Denies any specific complaints other than b/l LE pain. - Current Medication List Current Medications: Active Medications Acetaminophen (Tylenol -) 650 mg PO Q6H PRN PRN Reason: PAIN LEVEL 1-5 Last Admin: 06/26/17 07:34 Dose: 650 mg Amino Acids (Prosource No Carb Liquid Pkt) 30 ml PO BID@0800,1730 [facility] Last Admin: 06/30/17 08:22 Dose: 30 ml Apixaban (Eliquis -) 5 mg PO BID [facility] Last Admin: 06/30/17 09:03 Dose: 5 mg Artificial Tears (Artificial Tears) 1 drop OU TID [facility] Last Admin: 06/30/17 08:23 Dose: 1 drop Ascorbic Acid (Vitamin C -) 500 mg PO DAILY [facility] Last Admin: 06/30/17 09:05 Dose: 500 mg Budesonide/Formoterol Fumarate (Symbicort 80/4.5mcg -) 2 puff IH BID [facility] Last Admin: 06/30/17 09:08 Dose: 2 puff Collagenase (Santyl -) 1 applic TP DAILY [facility] Last Admin: 06/30/17 09:09 Dose: 1 applic Diltiazem HCl (Cardizem -) 30 mg PO QID [facility] Last Admin: 06/30/17 09:02 Dose: 30 mg Vancomycin HCl 750 mg/ (Dextrose) 250 mls @ 250 mls/hr IVPB Q24H [facility] PRN Reason: Protocol Last Admin: 06/29/17 19:23 Dose: 250 mls/hr Ertapenem 1 gm/ Sodium (Chloride) 100 mls @ 200 mls/hr IVPB DAILY [facility] PRN Reason: Protocol Last Admin: 06/29/17 11:30 Dose: 200 mls/hr Insulin Aspart (Novolog Vial Sliding Scale -) 1 vial SQ ACHS [facility] PRN Reason: Protocol Last Admin: 06/30/17 08:49 Dose: Not Given Insulin Detemir (Levemir Vial) 20 units SQ AM [facility] Last Admin: 06/30/17 08:21 Dose: 20 units Lactobacillus Acidophilus (Bacid -) 1 tab PO DAILY [facility] Last Admin: 06/30/17 09:02 Dose: 1 tab Midodrine (Proamatine -) 10 mg PO TID-MID [facility] Last Admin: 06/30/17 09:03 Dose: 10 mg Ondansetron HCl (Zofran Injection) 4 mg IVPB Q6H PRN PRN Reason: NAUSEA Ondansetron HCl (Zofran Injection) 4 mg IVPUSH Q6H PRN PRN Reason: NAUSEA AND/OR VOMITING Pantoprazole Sodium (Protonix -) 40 mg PO DAILY [facility] Last Admin: 06/30/17 09:14 Dose: 40 mg Tramadol HCl (Ultram -) 50 mg PO Q6H PRN PRN Reason: PAIN LEVEL 4 - 6 Last Admin: 06/30/17 09:12 Dose: 50 mg - Objective Vital Signs: Vital Signs Temperature 98.6 F 06/30/17 06:00 Pulse Rate 89 06/30/17 08:00 Respiratory Rate 22 06/30/17 06:00 Blood Pressure 95/63 06/30/17 08:00 O2 Sat by Pulse Oximetry (%) 99 06/29/17 21:00 Constitutional: Yes: No Distress Cardiovascular: Yes: Tachycardia Respiratory: Yes: Regular Gastrointestinal: Yes: Normal Bowel Sounds, Soft Integumentary: Yes: Other (b/l LE with less edema/warmth/erythema) Labs: CBC, BMP 06/30/17 05:58 06/30/17 05:58 INR, PTT INR 1.16 (0.82-1.09) H 06/18/17 20:30 Problem List - Problems (1) Unable to ambulate Code(s): R26.2 - DIFFICULTY IN WALKING, NOT ELSEWHERE CLASSIFIED (2) Venous stasis Code(s): I87.8 - OTHER SPECIFIED DISORDERS OF VEINS (3) NOVA (acute kidney injury) Code(s): N17.9 - ACUTE KIDNEY FAILURE, UNSPECIFIED (4) Cellulitis Code(s): L03.90 - CELLULITIS, UNSPECIFIED Qualifiers: Site of cellulitis of extremity: lower extremity Laterality: right (5) DM2 (diabetes mellitus, type 2) Code(s): E11.9 - TYPE 2 DIABETES MELLITUS WITHOUT COMPLICATIONS Qualifiers: Diabetes mellitus complication detail: with other circulatory complications (6) Sepsis Code(s): A41.9 - SEPSIS, UNSPECIFIED ORGANISM Qualifiers: Sepsis type: sepsis due to unspecified organism Qualified Code(s): A41.9 - Sepsis, unspecified organism Assessment/Plan - bilateral/LE cellulitis/abscess - resolved NOVA s/p sepsis -- continue antibiotics -- repeat cbc, monitor renal function - continue wound care/ pain control cc time 35 min
--- NOTE | 2017-06-30 15:15 | PN ---
Progress Note, Physician Chief Complaint: AWAKE ALERT C/O PAIN WHEN DRESSING CHANGES OCCUR - Current Medication List Current Medications: Active Medications Acetaminophen (Tylenol -) 650 mg PO Q6H PRN PRN Reason: PAIN LEVEL 1-5 Last Admin: 06/26/17 07:34 Dose: 650 mg Amino Acids (Prosource No Carb Liquid Pkt) 30 ml PO BID@0800,1730 [facility] Last Admin: 06/30/17 08:22 Dose: 30 ml Apixaban (Eliquis -) 5 mg PO BID [facility] Last Admin: 06/30/17 09:03 Dose: 5 mg Artificial Tears (Artificial Tears) 1 drop OU TID [facility] Last Admin: 06/30/17 14:24 Dose: 1 drop Ascorbic Acid (Vitamin C -) 500 mg PO DAILY [facility] Last Admin: 06/30/17 09:05 Dose: 500 mg Budesonide/Formoterol Fumarate (Symbicort 80/4.5mcg -) 2 puff IH BID [facility] Last Admin: 06/30/17 09:08 Dose: 2 puff Collagenase (Santyl -) 1 applic TP DAILY [facility] Last Admin: 06/30/17 09:09 Dose: 1 applic Diltiazem HCl (Cardizem -) 30 mg PO QID [facility] Last Admin: 06/30/17 14:24 Dose: 30 mg Vancomycin HCl 750 mg/ (Dextrose) 250 mls @ 250 mls/hr IVPB Q24H [facility] PRN Reason: Protocol Last Admin: 06/29/17 19:23 Dose: 250 mls/hr Ertapenem 1 gm/ Sodium (Chloride) 100 mls @ 200 mls/hr IVPB DAILY [facility] PRN Reason: Protocol Last Admin: 06/30/17 11:45 Dose: 200 mls/hr Insulin Aspart (Novolog Vial Sliding Scale -) 1 vial SQ ACHS [facility] PRN Reason: Protocol Last Admin: 06/30/17 14:20 Dose: 2 units Insulin Detemir (Levemir Vial) 20 units SQ AM [facility] Last Admin: 06/30/17 08:21 Dose: 20 units Lactobacillus Acidophilus (Bacid -) 1 tab PO DAILY [facility] Last Admin: 06/30/17 09:02 Dose: 1 tab Midodrine (Proamatine -) 10 mg PO TID-MID [facility] Last Admin: 06/30/17 14:20 Dose: 10 mg Ondansetron HCl (Zofran Injection) 4 mg IVPB Q6H PRN PRN Reason: NAUSEA Ondansetron HCl (Zofran Injection) 4 mg IVPUSH Q6H PRN PRN Reason: NAUSEA AND/OR VOMITING Pantoprazole Sodium (Protonix -) 40 mg PO DAILY [facility] Last Admin: 06/30/17 09:14 Dose: 40 mg Tramadol HCl (Ultram -) 50 mg PO Q6H PRN PRN Reason: PAIN LEVEL 4 - 6 Last Admin: 06/30/17 14:24 Dose: 50 mg - Objective Vital Signs: Vital Signs Temperature 98.4 F 06/30/17 12:00 Pulse Rate 100 H 06/30/17 14:00 Respiratory Rate 22 06/30/17 14:00 Blood Pressure 99/71 06/30/17 14:00 O2 Sat by Pulse Oximetry (%) 99 06/30/17 09:00 Constitutional: Yes: Mild Distress Eyes: Yes: WNL HENT: Yes: WNL Neck: Yes: WNL Cardiovascular: Yes: WNL Respiratory: Yes: WNL Gastrointestinal: Yes: WNL Genitourinary: Yes: WNL Musculoskeletal: Yes: Muscle Weakness Extremities: Yes: WNL Edema: No Peripheral Pulses WNL: Yes Integumentary: Yes: WNL Wound/Incision: Yes: Clean/Dry Neurological: Yes: Weakness, Other ...Motor Strength: LLE, RLE Psychiatric: Yes: Other Labs: CBC, BMP 06/30/17 05:58 06/30/17 05:58 INR, PTT INR 1.16 (0.82-1.09) H 06/18/17 20:30 Problem List - Problems (1) Renal failure (ARF), acute on chronic Code(s): N17.9 - ACUTE KIDNEY FAILURE, UNSPECIFIED; N18.9 - CHRONIC KIDNEY DISEASE, UNSPECIFIED (2) Ulcers of both lower extremities Code(s): L97.919 - NON-PRS CHRONIC ULC UNSP PRT OF R LOW LEG W UNSP SEVERITY; L97.929 - NON-PRS CHRONIC ULC UNSP PRT OF L LOW LEG W UNSP SEVERITY Qualifiers: Non-pressure ulcer stage: unspecified non-pressure ulcer stage Qualified Code(s): L97.919 - Non-pressure chronic ulcer of unspecified part of right lower leg with unspecified severity; L97.929 - Non-pressure chronic ulcer of unspecified part of left lower leg with unspecified severity; L97.929 - Non- pressure chronic ulcer of unspecified part of left lower leg with unspecified severity; L97.929 - Non-pressure chronic ulcer of unspecified part of left lower leg with unspecified severity; L97.929 - Non-pressure chronic ulcer of unspecified part of left lower leg with unspecified severity Assessment/Plan IV ABX PAIN CONTROL DRESSING CHANGE ID AND VASC SX FOLOW UP SNF DVT PROPHYLAXIS ON ELIQUIS
[2017-06-30] MEDS: VANCOMYCIN 750 MG in DEXTROSE 5%-WATER - 250 ML IVPB SCH (17:21)
--- NOTE | 2017-06-30 17:51 | PN ---
Progress Note, Physician History of Present Illness: Pt seen and examined at bedside. She is awake and alert. - Current Medication List Current Medications: Active Medications Acetaminophen (Tylenol -) 650 mg PO Q6H PRN PRN Reason: PAIN LEVEL 1-5 Last Admin: 06/26/17 07:34 Dose: 650 mg Amino Acids (Prosource No Carb Liquid Pkt) 30 ml PO BID@0800,1730 [facility] Last Admin: 06/30/17 17:21 Dose: 30 ml Apixaban (Eliquis -) 5 mg PO BID [facility] Last Admin: 06/30/17 09:03 Dose: 5 mg Artificial Tears (Artificial Tears) 1 drop OU TID [facility] Last Admin: 06/30/17 14:24 Dose: 1 drop Ascorbic Acid (Vitamin C -) 500 mg PO DAILY [facility] Last Admin: 06/30/17 09:05 Dose: 500 mg Budesonide/Formoterol Fumarate (Symbicort 80/4.5mcg -) 2 puff IH BID [facility] Last Admin: 06/30/17 09:08 Dose: 2 puff Collagenase (Santyl -) 1 applic TP DAILY [facility] Last Admin: 06/30/17 09:09 Dose: 1 applic Diltiazem HCl (Cardizem -) 30 mg PO QID [facility] Last Admin: 06/30/17 17:21 Dose: 30 mg Vancomycin HCl 750 mg/ (Dextrose) 250 mls @ 250 mls/hr IVPB Q24H [facility] PRN Reason: Protocol Last Admin: 06/30/17 17:21 Dose: 250 mls/hr Ertapenem 1 gm/ Sodium (Chloride) 100 mls @ 200 mls/hr IVPB DAILY [facility] PRN Reason: Protocol Last Admin: 06/30/17 11:45 Dose: 200 mls/hr Insulin Aspart (Novolog Vial Sliding Scale -) 1 vial SQ ACHS [facility] PRN Reason: Protocol Last Admin: 06/30/17 14:20 Dose: 2 units Insulin Detemir (Levemir Vial) 20 units SQ AM [facility] Last Admin: 06/30/17 08:21 Dose: 20 units Lactobacillus Acidophilus (Bacid -) 1 tab PO DAILY [facility] Last Admin: 06/30/17 09:02 Dose: 1 tab Midodrine (Proamatine -) 10 mg PO TID-MID [facility] Last Admin: 06/30/17 17:21 Dose: 10 mg Ondansetron HCl (Zofran Injection) 4 mg IVPB Q6H PRN PRN Reason: NAUSEA Ondansetron HCl (Zofran Injection) 4 mg IVPUSH Q6H PRN PRN Reason: NAUSEA AND/OR VOMITING Pantoprazole Sodium (Protonix -) 40 mg PO DAILY [facility] Last Admin: 06/30/17 09:14 Dose: 40 mg Tramadol HCl (Ultram -) 50 mg PO Q6H PRN PRN Reason: PAIN LEVEL 4 - 6 Last Admin: 06/30/17 14:24 Dose: 50 mg - Objective Vital Signs: Vital Signs Temperature 98.4 F 06/30/17 12:00 Pulse Rate 100 H 06/30/17 14:00 Respiratory Rate 22 06/30/17 14:00 Blood Pressure 99/71 06/30/17 14:00 O2 Sat by Pulse Oximetry (%) 99 06/30/17 09:00 Constitutional: Yes: Calm Eyes: Yes: Conjunctiva Clear HENT: Yes: Atraumatic Neck: Yes: Supple Cardiovascular: Yes: S1, S2 Respiratory: Yes: CTA Bilaterally Gastrointestinal: Yes: Soft, Abdomen, Obese Genitourinary: Yes: WNL Edema: Yes Edema: LLE: 1+, RLE: 1+ Wound/Incision: Yes: Open to air, Dressing Dry and Intact Neurological: Yes: Oriented Labs: CBC, BMP 06/30/17 05:58 06/30/17 05:58 INR, PTT INR 1.16 (0.82-1.09) H 06/18/17 20:30 Problem List - Problems (1) Hyperkalemia Code(s): E87.5 - HYPERKALEMIA (2) Ulcers of both lower extremities Code(s): L97.919 - NON-PRS CHRONIC ULC UNSP PRT OF R LOW LEG W UNSP SEVERITY; L97.929 - NON-PRS CHRONIC ULC UNSP PRT OF L LOW LEG W UNSP SEVERITY Qualifiers: Non-pressure ulcer stage: unspecified non-pressure ulcer stage Qualified Code(s): L97.919 - Non-pressure chronic ulcer of unspecified part of right lower leg with unspecified severity; L97.929 - Non-pressure chronic ulcer of unspecified part of left lower leg with unspecified severity; L97.929 - Non- pressure chronic ulcer of unspecified part of left lower leg with unspecified severity; L97.929 - Non-pressure chronic ulcer of unspecified part of left lower leg with unspecified severity; L97.929 - Non-pressure chronic ulcer of unspecified part of left lower leg with unspecified severity (3) Unable to ambulate Code(s): R26.2 - DIFFICULTY IN WALKING, NOT ELSEWHERE CLASSIFIED (4) NOVA (acute kidney injury) Code(s): N17.9 - ACUTE KIDNEY FAILURE, UNSPECIFIED (5) Acute renal failure Code(s): N17.9 - ACUTE KIDNEY FAILURE, UNSPECIFIED (6) Afib Code(s): I48.91 - UNSPECIFIED ATRIAL FIBRILLATION Assessment/Plan Current Medications Generic Name Dose Route Start Last Admin Trade Name Freq PRN Reason Stop Dose Admin Acetaminophen 650 mg 06/26/17 07:08 06/26/17 07:34 Tylenol - PO 650 mg Q6H PRN Administration PAIN LEVEL 1-5 Amino Acids 30 ml 06/28/17 17:30 06/30/17 17:21 Prosource No Carb Liquid Pkt PO 30 ml BID@0800,1730 [facility] Administration Apixaban 5 mg 06/24/17 22:00 06/30/17 09:03 Eliquis - PO 5 mg BID [facility] Administration Artificial Tears 1 drop 06/22/17 22:00 06/30/17 14:24 Artificial Tears OU 1 drop TID [facility] Administration Ascorbic Acid 500 mg 06/29/17 10:00 06/30/17 09:05 Vitamin C - PO 500 mg DAILY [facility] Administration Budesonide/Formoterol Fumarate 2 puff 06/21/17 11:00 06/30/17 09:08 Symbicort 80/4.5mcg - IH 2 puff BID [facility] Administration Collagenase 1 applic 06/26/17 10:00 06/30/17 09:09 Santyl - TP 1 applic DAILY [facility] Administration Diltiazem HCl 30 mg 06/27/17 14:00 06/30/17 17:21 Cardizem - PO 30 mg QID [facility] Administration Vancomycin HCl 750 mg/ 250 mls @ 250 mls/hr 06/21/17 16:00 06/30/17 17:21 Dextrose IVPB 250 mls/hr Q24H [facility] Administration Protocol Ertapenem 1 gm/ Sodium 100 mls @ 200 mls/hr 06/26/17 10:00 06/30/17 11:45 Chloride IVPB 200 mls/hr DAILY [facility] Administration Protocol Insulin Aspart 1 vial 06/20/17 16:30 06/30/17 17:49 Novolog Vial Sliding Scale - SQ Not Given ACHS [facility] Protocol Insulin Detemir 20 units 06/25/17 10:40 06/30/17 08:21 Levemir Vial SQ 20 units AM [facility] Administration Lactobacillus Acidophilus 1 tab 06/29/17 10:00 06/30/17 09:02 Bacid - PO 1 tab DAILY [facility] Administration Midodrine 10 mg 06/27/17 11:32 06/30/17 17:21 Proamatine - PO 10 mg TID-MID [facility] Administration Ondansetron HCl 4 mg 06/20/17 15:01 Zofran Injection IVPB Q6H PRN NAUSEA Ondansetron HCl 4 mg 06/20/17 15:01 Zofran Injection IVPUSH Q6H PRN NAUSEA AND/OR VOMITING Pantoprazole Sodium 40 mg 06/25/17 19:30 06/30/17 09:14 Protonix - PO 40 mg DAILY [facility] Administration Tramadol HCl 50 mg 06/29/17 14:22 06/30/17 14:24 Ultram - PO 50 mg Q6H PRN Administration PAIN LEVEL 4 - 6 Impression 1. NOVA 2. hyperkalemia resolved 3. obesity 4. DM 5. a-fib 6. HTN 7. chronic lower extremity ulcers 8. gastritis 9. sepsis 10. hyponatremia 11. hypokalemia 12. hypotension Plan - cont midodrine - monitor bp - wound care - avoid nsaids - will follow PRN - blood pressure is starting to improve, hopefully can start to come off of the midodrine soon Dr Epstein
[2017-07-01 06:15] LABS: BASO % 1.1 % (0-2.0); EOS % 4.5 % (0-4.5); HEMATOCRIT 26.5 % (32.4-45.2); HEMOGLOBIN 8.5 GM/dL (10.7-15.3); LYMPH % 10.9 % (8-40); MCH 27.4 pg (25.7-33.7); MCHC 32.2 g/dl (32.0-36.0); MEAN CELL VOLUME 85.1 fl (80-96); MEAN PLT VOLUME 9.2 fl (7.5-11.1); MONO % 6.1 % (3.8-10.2); NEUT % 77.4 % (42.8-82.8); PLATELET COUNT 447 K/MM3 (134-434); RBC 3.11 M/mm3 (3.60-5.2); RDW 14.8 % (11.6-15.6); WHITE BLOOD COUNT 9.5 K/mm3 (4.0-10.0)
[2017-07-01] MEDS: INSULIN DETEMIR 100 UNITS/ML MDV SQ SCH (06:33)
[2017-07-01] MEDS: ARTIFICIAL TEARS (POLYVINYL ALCOHOL 1.4%) OPTH DROPS OU SCH ×4 (06:34→21:36)
[2017-07-01] MEDS: INSULIN SLIDING SCALE (NOVOLOG) 1 VIAL SQ SCH ×5 (06:34→21:37)
[2017-07-01 06:48] LABS: ALBUMIN 1.6 g/dl (3.4-5.0); ANION GAP 10 (8-16); BLOOD UREA NITROGEN 21 mg/dL (7-18); CALCIUM 7.9 mg/dL (8.5-10.1); CHLORIDE 110 mmol/L (98-107); CO2 23 mmol/L (21-32); CREATININE 0.8 mg/dL (0.55-1.02); GLUCOSE,RANDOM 117 mg/dL (74-106); MAGNESIUM 1.7 mg/dL (1.8-2.4); PHOSPHOROUS 3.6 mg/dL (2.5-4.9); POTASSIUM 4.1 mmol/L (3.5-5.1); SGOT/AST 7 U/L (15-37); SGPT/ALT 12 U/L (12-78); SODIUM 143 mmol/L (136-145)
[2017-07-01 06:50] LABS: ALK PHOS 83 U/L (45-117); BILIRUBIN,TOTAL 0.4 mg/dL (0.2-1.0); TOT PROT 5.1 g/dl (6.4-8.2)
[2017-07-01] MEDS: traMADol HCL 50 MG TABLET PO PRN ×3 (07:18→21:29)
[2017-07-01] MEDS ORDERED: MAGNESIUM SULF 50% (8.12 MEQ/2 ML-1 GM VIAL) IVPB ONE (07:54)
[2017-07-01] MEDS ORDERED: MAGNESIUM OXIDE 400 MG TABLET (FP) PO ONE (08:30)
--- NOTE | 2017-07-01 08:55 | PN ---
Physical Exam: SUBJECTIVE: Patient seen and examined The patient is a 52 year old female with a history of DM, afib, gastritis, cellulitis who was admitted for AMS secondary to nova with electrolyte derangement for urgent dialysis with associated hypotension. The patient has been stable overnight. Only complaining of pain in her lower extremities secondary to the wound infection. Otherwise no acute events overnight. OBJECTIVE: Vital Signs Period Temp Pulse Resp BP Sys/Callahan Pulse Ox Last 24 Hr 98.4 F-99.4 F 73-100 21-25 81-105/51-71 99-99 GENERAL: The patient is awake, alert, and fully oriented, in no acute distress. HEAD: Normal with no signs of trauma. EYES: sclera anicteric, conjunctiva clear. No ptosis. ENT: oropharynx clear without exudates, moist mucous membranes. NECK: Trachea midline, full range of motion, supple. LUNGS: Breath sounds equal, clear to auscultation bilaterally, no wheezes, no crackles, no accessory muscle use. HEART: Regular rate and rhythm, S1, S2 without murmur, rub or gallop. ABDOMEN: Soft, nontender, nondistended, normoactive bowel sounds, no guarding, no rebound, no hepatosplenomegaly, no masses. EXTREMITIES: 2+ pulses, warm, well-perfused, 2+ edema. Bilateral lower extremity wounds with dry dressings. NEUROLOGICAL: Normal speech, gait not observed. PSYCH: Normal mood, normal affect. SKIN: Warm, dry, normal turgor, no rashes or lesions noted Laboratory Results - last 24 hr 06/28/17 06/28/17 06/29/17 17:00 21:14 05:41 WBC RBC Hgb Hct MCV MCH MCHC RDW Plt Count MPV Neutrophils % Lymphocytes % Monocytes % Eosinophils % Basophils % Sodium Potassium Chloride Carbon Dioxide Anion Gap BUN Creatinine Creat Clearance w eGFR POC Glucometer 157.53027 148.38905 152.73557 Random Glucose Calcium Phosphorus Magnesium Total Bilirubin AST ALT Alkaline Phosphatase Total Protein Albumin 06/29/17 06/29/17 06/29/17 12:46 19:34 22:02 WBC RBC Hgb Hct MCV MCH MCHC RDW Plt Count MPV Neutrophils % Lymphocytes % Monocytes % Eosinophils % Basophils % Sodium Potassium Chloride Carbon Dioxide Anion Gap BUN Creatinine Creat Clearance w eGFR POC Glucometer 157.48623 130.19936 168.71712 Random Glucose Calcium Phosphorus Magnesium Total Bilirubin AST ALT Alkaline Phosphatase Total Protein Albumin 06/30/17 07/01/17 07/01/17 17:32 05:45 05:45 WBC 9.5 RBC 3.11 L Hgb 8.5 L Hct 26.5 L MCV 85.1 MCH 27.4 MCHC 32.2 RDW 14.8 Plt Count 447 H MPV 9.2 Neutrophils % 77.4 Lymphocytes % 10.9 D Monocytes % 6.1 Eosinophils % 4.5 Basophils % 1.1 Sodium 143 Potassium 4.1 Chloride 110 H Carbon Dioxide 23 Anion Gap 10 BUN 21 H Creatinine 0.8 Creat Clearance w eGFR > 60 POC Glucometer [phone] Random Glucose 117 H Calcium 7.9 L Phosphorus 3.6 Magnesium 1.7 L Total Bilirubin 0.4 D AST 7 L ALT 12 Alkaline Phosphatase 83 Total Protein 5.1 L Albumin 1.6 L Active Medications Generic Name Dose Route Start Last Admin Trade Name Freq PRN Reason Stop Dose Admin Acetaminophen 650 mg 06/26/17 07:08 06/26/17 07:34 Tylenol - PO 650 mg Q6H PRN Administration PAIN LEVEL 1-5 Amino Acids 30 ml 06/28/17 17:30 06/30/17 17:21 Prosource No Carb Liquid Pkt PO 30 ml BID@0800,1730 [facility] Administration Apixaban 5 mg 06/24/17 22:00 06/30/17 22:15 Eliquis - PO 5 mg BID [facility] Administration Artificial Tears 1 drop 06/22/17 22:00 07/01/17 06:34 Artificial Tears OU 1 drop TID [facility] Administration Ascorbic Acid 500 mg 06/29/17 10:00 06/30/17 09:05 Vitamin C - PO 500 mg DAILY [facility] Administration Budesonide/Formoterol Fumarate 2 puff 06/21/17 11:00 06/30/17 22:15 Symbicort 80/4.5mcg - IH 2 puff BID [facility] Administration Collagenase 1 applic 06/26/17 10:00 06/30/17 09:09 Santyl - TP 1 applic DAILY [facility] Administration Diltiazem HCl 30 mg 06/27/17 14:00 06/30/17 22:15 Cardizem - PO 30 mg QID [facility] Administration Vancomycin HCl 750 mg/ 250 mls @ 250 mls/hr 06/21/17 16:00 06/30/17 17:21 Dextrose IVPB 250 mls/hr Q24H [facility] Administration Protocol Ertapenem 1 gm/ Sodium 100 mls @ 200 mls/hr 06/26/17 10:00 06/30/17 11:45 Chloride IVPB 200 mls/hr DAILY [facility] Administration Protocol Magnesium Sulfate/Dextrose 1 gm in 100 mls @ 100 mls/hr 07/01/17 09:00 Magnesium 1gm/D5w - IVPB 07/01/17 09:59 ONCE ONE Insulin Aspart 1 vial 06/20/17 16:30 07/01/17 06:34 Novolog Vial Sliding Scale - SQ 2 units ACHS [facility] Administration Protocol Insulin Detemir 20 units 06/25/17 10:40 07/01/17 06:33 Levemir Vial SQ 20 units AM [facility] Administration Lactobacillus Acidophilus 1 tab 06/29/17 10:00 06/30/17 09:02 Bacid - PO 1 tab DAILY [facility] Administration Midodrine 10 mg 06/27/17 11:32 06/30/17 17:21 Proamatine - PO 10 mg TID-MID [facility] Administration Ondansetron HCl 4 mg 06/20/17 15:01 Zofran Injection IVPB Q6H PRN NAUSEA Ondansetron HCl 4 mg 06/20/17 15:01 Zofran Injection IVPUSH Q6H PRN NAUSEA AND/OR VOMITING Pantoprazole Sodium 40 mg 06/25/17 19:30 06/30/17 09:14 Protonix - PO 40 mg DAILY [facility] Administration Tramadol HCl 50 mg 06/29/17 14:22 07/01/17 07:18 Ultram - PO 50 mg Q6H PRN Administration PAIN LEVEL 4 - 6 ASSESSMENT/PLAN: The patient is a 52 year old female with a history of DM, afib, gastritis, cellulitis who was admitted for AMS secondary to nova with electrolyte derangement for urgent dialysis with associated hypotension. NEURO Patient is alert and oriented x3 No issues currently. -Will continue to monitor. CV #Septic Shock, with lactic acidosis and hypotension - Continue midodrine - Patient now off pressors and stable. - Decrease cardizemm 30mg po BID - Will start metoprolol 25mg BID RESP #Respiratory distress (Improved) The patient is currently off bipap and is resting comfortable. -Will continue to monitor. GI No Issues currently. Heme #Anemia -h/h improved. -We are comfortable restarting the patient on Eliquis for anticoagulation. -Will continue to monitor h/h Renal #NOVA The patient's hyponatremia and hyperkalemia is no improved post dialysis with an improved EKG from admission. - Will switch the patient to NS maintenance fluids per Nephrology recs. - Will continue cuevas for UOP monitoring ID #Sepsis Likely secondary to the patient's cellulitis and lower extremity wounds. ID has been consulted - Continue Vancomycin and Ertapenem IV daily - Patient had debridement of the lower extremity wounds. - Wound care per surgical team. MSK No issues currently FEN/GI -Replete electrolytes PRN, will monitor PPX -Eliquis DISPO: Stable for transfer to floor monitoring. Visit type - Emergency Visit Emergency Visit: No - New Patient This patient is new to me today: No - Critical Care Critical Care patient: No
[2017-07-01] MEDS: AMINO ACIDS/PROTEIN HYDROLYS 30 ML LIQUID.PKT PO SCH ×2 (08:58→16:55)
[2017-07-01] MEDS ORDERED: MAGNESIUM 1GM/D5W - 1 GM/100 ML IVPB IVPB ONE (09:00)
[2017-07-01] MEDS: PANTOPRAZOLE 40 MG TABLET (FP) PO SCH (09:56)
[2017-07-01] MEDS: ASCORBIC ACID 500 MG TABLET (FP) PO SCH (09:56)
[2017-07-01] MEDS: LACTOBACILLUS ACIDOPHILUS 1 EACH TAB (FP) PO SCH (09:56)
[2017-07-01] MEDS: BUDESONIDE/FORMETEROL FUMARATE 80/4.5 mcg INHALER IH SCH ×3 (09:57→21:38)
[2017-07-01] MEDS ORDERED: INSULIN DETEMIR 100 UNITS/ML MDV SQ SCH (10:12)
--- NOTE | 2017-07-01 10:12 | PN ---
Progress Note, Physician Chief Complaint: seen and examined in ICU low 80's awake alert complaining of pain in leg wounds - Current Medication List Current Medications: Active Medications Acetaminophen (Tylenol -) 650 mg PO Q6H PRN PRN Reason: PAIN LEVEL 1-5 Last Admin: 06/26/17 07:34 Dose: 650 mg Amino Acids (Prosource No Carb Liquid Pkt) 30 ml PO BID@0800,1730 [facility] Last Admin: 07/01/17 08:58 Dose: 30 ml Apixaban (Eliquis -) 5 mg PO BID [facility] Last Admin: 06/30/17 22:15 Dose: 5 mg Artificial Tears (Artificial Tears) 1 drop OU TID [facility] Last Admin: 07/01/17 06:34 Dose: 1 drop Ascorbic Acid (Vitamin C -) 500 mg PO DAILY [facility] Last Admin: 07/01/17 09:56 Dose: 500 mg Budesonide/Formoterol Fumarate (Symbicort 80/4.5mcg -) 2 puff IH BID [facility] Last Admin: 07/01/17 09:57 Dose: 2 puff Collagenase (Santyl -) 1 applic TP DAILY [facility] Last Admin: 06/30/17 09:09 Dose: 1 applic Vancomycin HCl 750 mg/ (Dextrose) 250 mls @ 250 mls/hr IVPB Q24H [facility] PRN Reason: Protocol Last Admin: 06/30/17 17:21 Dose: 250 mls/hr Ertapenem 1 gm/ Sodium (Chloride) 100 mls @ 200 mls/hr IVPB DAILY [facility] PRN Reason: Protocol Last Admin: 06/30/17 11:45 Dose: 200 mls/hr Insulin Aspart (Novolog Vial Sliding Scale -) 1 vial SQ ACHS [facility] PRN Reason: Protocol Last Admin: 07/01/17 06:34 Dose: 2 units Insulin Detemir (Levemir Vial) 20 units SQ AM [facility] Last Admin: 07/01/17 06:33 Dose: 20 units Lactobacillus Acidophilus (Bacid -) 1 tab PO DAILY [facility] Last Admin: 07/01/17 09:56 Dose: 1 tab Midodrine (Proamatine -) 10 mg PO TID-MID [facility] Last Admin: 06/30/17 17:21 Dose: 10 mg Ondansetron HCl (Zofran Injection) 4 mg IVPB Q6H PRN PRN Reason: NAUSEA Ondansetron HCl (Zofran Injection) 4 mg IVPUSH Q6H PRN PRN Reason: NAUSEA AND/OR VOMITING Pantoprazole Sodium (Protonix -) 40 mg PO DAILY [facility] Last Admin: 07/01/17 09:56 Dose: 40 mg Tramadol HCl (Ultram -) 50 mg PO Q6H PRN PRN Reason: PAIN LEVEL 4 - 6 Last Admin: 07/01/17 07:18 Dose: 50 mg - Objective Vital Signs: Vital Signs Temperature 98.5 F 07/01/17 09:32 Pulse Rate 88 07/01/17 09:32 Respiratory Rate 22 07/01/17 09:32 Blood Pressure 87/67 07/01/17 08:00 O2 Sat by Pulse Oximetry (%) 99 07/01/17 09:00 Constitutional: Yes: Calm Cardiovascular: Yes: Regular Rate and Rhythm, S1, S2 Respiratory: Yes: CTA Bilaterally Gastrointestinal: Yes: Normal Bowel Sounds, Soft Wound/Incision: Yes: Other (wounds open exposed) Labs: CBC, BMP 07/01/17 05:45 07/01/17 05:45 INR, PTT INR 1.16 (0.82-1.09) H 06/18/17 20:30 Problem List - Problems (1) Electrolyte abnormality Assessment/Plan: will replete Mg Code(s): E87.8 - OTH DISORDERS OF ELECTROLYTE AND FLUID BALANCE, NEC (2) Leukocytosis Assessment/Plan: ID on board on iv abx-meropenem culture sent Microbiology 06/22/17 01:00 Blood - Central Line Blood Culture - Preliminary NO GROWTH OBTAINED AFTER 48 HOURS, INCUBATION TO CONTINUE FOR 3 DAYS. 06/22/17 00:30 Blood - Central Line Blood Culture - Preliminary NO GROWTH OBTAINED AFTER 48 HOURS, INCUBATION TO CONTINUE FOR 3 DAYS. wbc trending down now normal Code(s): D72.829 - ELEVATED WHITE BLOOD CELL COUNT, UNSPECIFIED (3) Ulcers of both lower extremities Assessment/Plan: seen by vascular s/p debridement wound care per vascular Code(s): L97.919 - NON-PRS CHRONIC ULC UNSP PRT OF R LOW LEG W UNSP SEVERITY; L97.929 - NON-PRS CHRONIC ULC UNSP PRT OF L LOW LEG W UNSP SEVERITY Qualifiers: Non-pressure ulcer stage: unspecified non-pressure ulcer stage Qualified Code(s): L97.919 - Non-pressure chronic ulcer of unspecified part of right lower leg with unspecified severity; L97.929 - Non-pressure chronic ulcer of unspecified part of left lower leg with unspecified severity; L97.929 - Non- pressure chronic ulcer of unspecified part of left lower leg with unspecified severity; L97.929 - Non-pressure chronic ulcer of unspecified part of left lower leg with unspecified severity; L97.929 - Non-pressure chronic ulcer of unspecified part of left lower leg with unspecified severity (4) Hyperkalemia Assessment/Plan: improved-resolved Code(s): E87.5 - HYPERKALEMIA (5) NOVA (acute kidney injury) Assessment/Plan: resolved making urine no more HD need bun/cr much improved and now normal Code(s): N17.9 - ACUTE KIDNEY FAILURE, UNSPECIFIED (6) Afib Assessment/Plan: on eliquis bid Code(s): I48.91 - UNSPECIFIED ATRIAL FIBRILLATION (7) DM2 (diabetes mellitus, type 2) Assessment/Plan: dc night time levemir given the low bgm in AM decrease AM levemir to 20 units Code(s): E11.9 - TYPE 2 DIABETES MELLITUS WITHOUT COMPLICATIONS Qualifiers: Diabetes mellitus complication detail: with other circulatory complications
[2017-07-01] MEDS ORDERED: PT OWN MED DRAWER 7, Y5N ONE ×3 (10:20→20:02)
[2017-07-01] MEDS: APIXABAN 5 MG TABLET PO SCH ×3 (10:36→21:37)
[2017-07-01] MEDS: MIDODRINE HCL 5 MG TABLET PO SCH ×3 (10:36→17:04)
[2017-07-01] MEDS: COLLAGENASE CLOSTRIDIUM HIST. 30 GRAMS TUBE TP SCH (10:37)
[2017-07-01] MEDS: ERTAPENEM SODIUM 1 GM in SODIUM CHLORIDE 100 ML IVPB SCH (10:39)
[2017-07-01] MEDS ORDERED: METOPROLOL TARTRATE 25 MG TABLET (FP) PO SCH (12:15)
--- NOTE | 2017-07-01 13:14 | PN ---
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 main issue blood pressure still on the lower side - Current Medication List Current Medications: Active Medications Acetaminophen (Tylenol -) 650 mg PO Q6H PRN PRN Reason: PAIN LEVEL 1-5 Last Admin: 06/26/17 07:34 Dose: 650 mg Amino Acids (Prosource No Carb Liquid Pkt) 30 ml PO BID@0800,1730 [facility] Last Admin: 07/01/17 08:58 Dose: 30 ml Apixaban (Eliquis -) 5 mg PO BID [facility] Last Admin: 07/01/17 10:36 Dose: 5 mg Artificial Tears (Artificial Tears) 1 drop OU TID [facility] Last Admin: 07/01/17 06:34 Dose: 1 drop Ascorbic Acid (Vitamin C -) 500 mg PO DAILY [facility] Last Admin: 07/01/17 09:56 Dose: 500 mg Budesonide/Formoterol Fumarate (Symbicort 80/4.5mcg -) 2 puff IH BID [facility] Last Admin: 07/01/17 09:57 Dose: 2 puff Collagenase (Santyl -) 1 applic TP DAILY [facility] Last Admin: 07/01/17 10:37 Dose: Not Given Vancomycin HCl 750 mg/ (Dextrose) 250 mls @ 250 mls/hr IVPB Q24H [facility] PRN Reason: Protocol Last Admin: 06/30/17 17:21 Dose: 250 mls/hr Ertapenem 1 gm/ Sodium (Chloride) 100 mls @ 200 mls/hr IVPB DAILY [facility] PRN Reason: Protocol Last Admin: 07/01/17 10:39 Dose: 200 mls/hr Insulin Aspart (Novolog Vial Sliding Scale -) 1 vial SQ ACHS [facility] PRN Reason: Protocol Last Admin: 07/01/17 11:12 Dose: 2 units Insulin Detemir (Levemir Vial) 15 units SQ AM [facility] Lactobacillus Acidophilus (Bacid -) 1 tab PO DAILY [facility] Last Admin: 07/01/17 09:56 Dose: 1 tab Metoprolol Tartrate (Lopressor -) 25 mg PO BID [facility] Midodrine (Proamatine -) 10 mg PO TID-MID [facility] Last Admin: 07/01/17 10:36 Dose: 10 mg Ondansetron HCl (Zofran Injection) 4 mg IVPB Q6H PRN PRN Reason: NAUSEA Ondansetron HCl (Zofran Injection) 4 mg IVPUSH Q6H PRN PRN Reason: NAUSEA AND/OR VOMITING Pantoprazole Sodium (Protonix -) 40 mg PO DAILY [facility] Last Admin: 07/01/17 09:56 Dose: 40 mg Tramadol HCl (Ultram -) 50 mg PO Q6H PRN PRN Reason: PAIN LEVEL 4 - 6 Last Admin: 07/01/17 11:13 Dose: 50 mg - Objective Vital Signs: Vital Signs Temperature 98.5 F 07/01/17 10:00 Pulse Rate 86 07/01/17 12:00 Respiratory Rate 22 07/01/17 12:00 Blood Pressure 97/66 07/01/17 12:00 O2 Sat by Pulse Oximetry (%) 99 07/01/17 09:00 Constitutional: Yes: No Distress, Calm Cardiovascular: Yes: Pulse Irregular, S1, S2 Respiratory: Yes: Regular, Poor Air Entry Gastrointestinal: Yes: Normal Bowel Sounds, Soft Musculoskeletal: Yes: Other Extremities: Yes: Other Neurological: Yes: Alert, Oriented Psychiatric: Yes: Alert, Oriented Labs: CBC, BMP 07/01/17 05:45 07/01/17 05:45 INR, PTT INR 1.16 (0.82-1.09) H 06/18/17 20:30 Assessment/Plan Problem List - Problems (1) Hyperkalemia Code(s): E87.5 - HYPERKALEMIA (2) Ulcers of both lower extremities Code(s): L97.919 - NON-PRS CHRONIC ULC UNSP PRT OF R LOW LEG W UNSP SEVERITY; L97.929 - NON-PRS CHRONIC ULC UNSP PRT OF L LOW LEG W UNSP SEVERITY Qualifiers: Non-pressure ulcer stage: unspecified non-pressure ulcer stage Qualified Code(s): L97.919 - Non-pressure chronic ulcer of unspecified part of right lower leg with unspecified severity; L97.929 - Non-pressure chronic ulcer of unspecified part of left lower leg with unspecified severity; L97.929 - Non- pressure chronic ulcer of unspecified part of left lower leg with unspecified severity; L97.929 - Non-pressure chronic ulcer of unspecified part of left lower leg with unspecified severity; L97.929 - Non-pressure chronic ulcer of unspecified part of left lower leg with unspecified severity (3) Unable to ambulate Code(s): R26.2 - DIFFICULTY IN WALKING, NOT ELSEWHERE CLASSIFIED (4) NOVA (acute kidney injury) Code(s): N17.9 - ACUTE KIDNEY FAILURE, UNSPECIFIED (5) Acute renal failure Code(s): N17.9 - ACUTE KIDNEY FAILURE, UNSPECIFIED (6) Afib Code(s): I48.91 - UNSPECIFIED ATRIAL FIBRILLATION sepsis leukocytosis electrolyte abn vanco trough noted plan' continue abx wound care vanco levels ordered monitor bp rest as per icu cc time 40 min
--- NOTE | 2017-07-01 13:52 | PN ---
Teaching Attending Note Name of Resident: Eder Mullins ATTENDING PHYSICIAN STATEMENT I saw and evaluated the patient. I reviewed the resident's note and discussed the case with the resident. I agree with the resident's findings and plan as documented. SUBJECTIVE: Patient seen and examined in the ICU. Denies shortness of breath or chest pain. Does report persistent LE pain. No pressors. Intake & Output 06/28/17 06/29/17 06/30/17 07/01/17 23:59 23:59 23:59 23:59 Intake Total 1480 100 850 300 Output Total 600 750 400 Balance 1480 -500 100 -100 Weight 281 lb 3 oz 280 lb 1.6 oz 276 lb 277 lb 5.464 oz Last Vital Signs Temp Pulse Resp BP Pulse Ox 98.5 F 86 22 97/66 99 07/01/17 10:00 07/01/17 12:00 07/01/17 12:00 07/01/17 12:00 07/01/17 09:00 Active Medications Acetaminophen (Tylenol -) 650 mg PO Q6H PRN PRN Reason: PAIN LEVEL 1-5 Last Admin: 06/26/17 07:34 Dose: 650 mg Amino Acids (Prosource No Carb Liquid Pkt) 30 ml PO BID@0800,1730 [facility] Last Admin: 07/01/17 08:58 Dose: 30 ml Apixaban (Eliquis -) 5 mg PO BID [facility] Last Admin: 07/01/17 10:36 Dose: 5 mg Artificial Tears (Artificial Tears) 1 drop OU TID [facility] Last Admin: 07/01/17 06:34 Dose: 1 drop Ascorbic Acid (Vitamin C -) 500 mg PO DAILY [facility] Last Admin: 07/01/17 09:56 Dose: 500 mg Budesonide/Formoterol Fumarate (Symbicort 80/4.5mcg -) 2 puff IH BID [facility] Last Admin: 07/01/17 09:57 Dose: 2 puff Collagenase (Santyl -) 1 applic TP DAILY [facility] Last Admin: 07/01/17 10:37 Dose: Not Given Diltiazem HCl (Cardizem -) 30 mg PO BID [facility] Docusate Sodium (Colace -) 100 mg PO DAILY [facility] Vancomycin HCl 750 mg/ (Dextrose) 250 mls @ 250 mls/hr IVPB Q24H [facility] PRN Reason: Protocol Last Admin: 06/30/17 17:21 Dose: 250 mls/hr Ertapenem 1 gm/ Sodium (Chloride) 100 mls @ 200 mls/hr IVPB DAILY [facility] PRN Reason: Protocol Last Admin: 07/01/17 10:39 Dose: 200 mls/hr Insulin Aspart (Novolog Vial Sliding Scale -) 1 vial SQ ACHS [facility] PRN Reason: Protocol Last Admin: 07/01/17 11:12 Dose: 2 units Insulin Detemir (Levemir Vial) 15 units SQ AM [facility] Lactobacillus Acidophilus (Bacid -) 1 tab PO DAILY [facility] Last Admin: 07/01/17 09:56 Dose: 1 tab Metoprolol Tartrate (Lopressor -) 25 mg PO BID [facility] Midodrine (Proamatine -) 10 mg PO TID-MID [facility] Last Admin: 07/01/17 10:36 Dose: 10 mg Ondansetron HCl (Zofran Injection) 4 mg IVPB Q6H PRN PRN Reason: NAUSEA Ondansetron HCl (Zofran Injection) 4 mg IVPUSH Q6H PRN PRN Reason: NAUSEA AND/OR VOMITING Oxycodone HCl (Roxicodone -) 5 mg PO Q6H PRN PRN Reason: PAIN LEVEL 7 - 10 Pantoprazole Sodium (Protonix -) 40 mg PO DAILY [facility] Last Admin: 07/01/17 09:56 Dose: 40 mg Tramadol HCl (Ultram -) 50 mg PO Q6H PRN PRN Reason: PAIN LEVEL 4 - 6 Last Admin: 07/01/17 11:13 Dose: 50 mg Gen: NAD at rest Heart: RRR Lung: decreased breath sounds at the bases Abd: soft, nontender Ext: dressings with drainage Laboratory Results - last 24 hr 06/28/17 06/28/17 06/29/17 17:00 21:14 05:41 WBC RBC Hgb Hct MCV MCH MCHC RDW Plt Count MPV Neutrophils % Lymphocytes % Monocytes % Eosinophils % Basophils % Sodium Potassium Chloride Carbon Dioxide Anion Gap BUN Creatinine Creat Clearance w eGFR POC Glucometer 157.93831 148.76874 152.38519 Random Glucose Calcium Phosphorus Magnesium Total Bilirubin AST ALT Alkaline Phosphatase Total Protein Albumin 06/29/17 06/29/17 06/29/17 12:46 19:34 22:02 WBC RBC Hgb Hct MCV MCH MCHC RDW Plt Count MPV Neutrophils % Lymphocytes % Monocytes % Eosinophils % Basophils % Sodium Potassium Chloride Carbon Dioxide Anion Gap BUN Creatinine Creat Clearance w eGFR POC Glucometer 157.66639 130.49113 168.70397 Random Glucose Calcium Phosphorus Magnesium Total Bilirubin AST ALT Alkaline Phosphatase Total Protein Albumin 06/30/17 07/01/17 07/01/17 17:32 05:45 05:45 WBC 9.5 RBC 3.11 L Hgb 8.5 L Hct 26.5 L MCV 85.1 MCH 27.4 MCHC 32.2 RDW 14.8 Plt Count 447 H MPV 9.2 Neutrophils % 77.4 Lymphocytes % 10.9 D Monocytes % 6.1 Eosinophils % 4.5 Basophils % 1.1 Sodium 143 Potassium 4.1 Chloride 110 H Carbon Dioxide 23 Anion Gap 10 BUN 21 H Creatinine 0.8 Creat Clearance w eGFR > 60 POC Glucometer [phone] Random Glucose 117 H Calcium 7.9 L Phosphorus 3.6 Magnesium 1.7 L Total Bilirubin 0.4 D AST 7 L ALT 12 Alkaline Phosphatase 83 Total Protein 5.1 L Albumin 1.6 L IMP: Cellulitis / Abscesses S/P Debridement Septic Shock resolving Acute on Chronic Renal Failure improving Lactic Acidosis resolved Atrial Fibrillation Uncontrolled DM - ABX per ID - local wound care - O2 to keep SpO2 >90% - Monitor urine output, creatinine - Replete and monitor lytes - Monitor off pressors - Midodrine - Glucose control - rate control - continue anticoagulation - Aspiration precautions - PO as tolerated - DVT prophylaxis - Cardiac Telemetry monitoring Dr Andre Critical care time spent in reviewing chart, evaluating patient and formulating plan 36 min
--- NOTE | 2017-07-01 15:48 | PN ---
Progress Note, Physician History of Present Illness: Pt seen and examined at bedside. She is awake and alert. She denies shortness of breath. - Current Medication List Current Medications: Active Medications Acetaminophen (Tylenol -) 650 mg PO Q6H PRN PRN Reason: PAIN LEVEL 1-5 Last Admin: 06/26/17 07:34 Dose: 650 mg Amino Acids (Prosource No Carb Liquid Pkt) 30 ml PO BID@0800,1730 [facility] Last Admin: 07/01/17 08:58 Dose: 30 ml Apixaban (Eliquis -) 5 mg PO BID [facility] Last Admin: 07/01/17 10:36 Dose: 5 mg Artificial Tears (Artificial Tears) 1 drop OU TID [facility] Last Admin: 07/01/17 06:34 Dose: 1 drop Ascorbic Acid (Vitamin C -) 500 mg PO DAILY [facility] Last Admin: 07/01/17 09:56 Dose: 500 mg Budesonide/Formoterol Fumarate (Symbicort 80/4.5mcg -) 2 puff IH BID [facility] Last Admin: 07/01/17 09:57 Dose: 2 puff Collagenase (Santyl -) 1 applic TP DAILY [facility] Last Admin: 07/01/17 10:37 Dose: Not Given Diltiazem HCl (Cardizem -) 30 mg PO BID [facility] Docusate Sodium (Colace -) 100 mg PO DAILY [facility] Vancomycin HCl 750 mg/ (Dextrose) 250 mls @ 250 mls/hr IVPB Q24H [facility] PRN Reason: Protocol Last Admin: 06/30/17 17:21 Dose: 250 mls/hr Ertapenem 1 gm/ Sodium (Chloride) 100 mls @ 200 mls/hr IVPB DAILY [facility] PRN Reason: Protocol Last Admin: 07/01/17 10:39 Dose: 200 mls/hr Insulin Aspart (Novolog Vial Sliding Scale -) 1 vial SQ ACHS [facility] PRN Reason: Protocol Last Admin: 07/01/17 11:12 Dose: 2 units Insulin Detemir (Levemir Vial) 15 units SQ AM [facility] Lactobacillus Acidophilus (Bacid -) 1 tab PO DAILY [facility] Last Admin: 07/01/17 09:56 Dose: 1 tab Metoprolol Tartrate (Lopressor -) 25 mg PO DAILY [facility] Midodrine (Proamatine -) 10 mg PO TID-MID [facility] Last Admin: 07/01/17 14:07 Dose: 10 mg Ondansetron HCl (Zofran Injection) 4 mg IVPB Q6H PRN PRN Reason: NAUSEA Ondansetron HCl (Zofran Injection) 4 mg IVPUSH Q6H PRN PRN Reason: NAUSEA AND/OR VOMITING Oxycodone HCl (Roxicodone -) 5 mg PO Q6H PRN PRN Reason: PAIN LEVEL 7 - 10 Pantoprazole Sodium (Protonix -) 40 mg PO DAILY [facility] Last Admin: 07/01/17 09:56 Dose: 40 mg Tramadol HCl (Ultram -) 50 mg PO Q6H PRN PRN Reason: PAIN LEVEL 4 - 6 Last Admin: 07/01/17 11:13 Dose: 50 mg - Objective Vital Signs: Vital Signs Temperature 98.6 F 07/01/17 14:00 Pulse Rate 84 07/01/17 14:00 Respiratory Rate 22 07/01/17 14:00 Blood Pressure 91/55 07/01/17 14:00 O2 Sat by Pulse Oximetry (%) 99 07/01/17 09:00 Constitutional: Yes: Calm Eyes: Yes: Conjunctiva Clear HENT: Yes: Atraumatic Neck: Yes: Supple Cardiovascular: Yes: S1, S2 Respiratory: Yes: CTA Bilaterally Gastrointestinal: Yes: Soft, Abdomen, Obese Genitourinary: Yes: WNL Musculoskeletal: Yes: Muscle Weakness Edema: LLE: Trace, RLE: Trace Neurological: Yes: Oriented Psychiatric: Yes: Oriented Labs: CBC, BMP 07/01/17 05:45 07/01/17 05:45 INR, PTT INR 1.16 (0.82-1.09) H 06/18/17 20:30 Problem List - Problems (1) Hyperkalemia Code(s): E87.5 - HYPERKALEMIA (2) Ulcers of both lower extremities Code(s): L97.919 - NON-PRS CHRONIC ULC UNSP PRT OF R LOW LEG W UNSP SEVERITY; L97.929 - NON-PRS CHRONIC ULC UNSP PRT OF L LOW LEG W UNSP SEVERITY Qualifiers: Non-pressure ulcer stage: unspecified non-pressure ulcer stage Qualified Code(s): L97.919 - Non-pressure chronic ulcer of unspecified part of right lower leg with unspecified severity; L97.929 - Non-pressure chronic ulcer of unspecified part of left lower leg with unspecified severity; L97.929 - Non- pressure chronic ulcer of unspecified part of left lower leg with unspecified severity; L97.929 - Non-pressure chronic ulcer of unspecified part of left lower leg with unspecified severity; L97.929 - Non-pressure chronic ulcer of unspecified part of left lower leg with unspecified severity (3) Unable to ambulate Code(s): R26.2 - DIFFICULTY IN WALKING, NOT ELSEWHERE CLASSIFIED (4) NOVA (acute kidney injury) Code(s): N17.9 - ACUTE KIDNEY FAILURE, UNSPECIFIED (5) Acute renal failure Code(s): N17.9 - ACUTE KIDNEY FAILURE, UNSPECIFIED (6) Afib Code(s): I48.91 - UNSPECIFIED ATRIAL FIBRILLATION Assessment/Plan Current Medications Generic Name Dose Route Start Last Admin Trade Name Freq PRN Reason Stop Dose Admin Acetaminophen 650 mg 06/26/17 07:08 06/26/17 07:34 Tylenol - PO 650 mg Q6H PRN Administration PAIN LEVEL 1-5 Amino Acids 30 ml 06/28/17 17:30 07/01/17 08:58 Prosource No Carb Liquid Pkt PO 30 ml BID@0800,1730 [facility] Administration Apixaban 5 mg 06/24/17 22:00 07/01/17 10:36 Eliquis - PO 5 mg BID [facility] Administration Artificial Tears 1 drop 06/22/17 22:00 07/01/17 06:34 Artificial Tears OU 1 drop TID [facility] Administration Ascorbic Acid 500 mg 06/29/17 10:00 07/01/17 09:56 Vitamin C - PO 500 mg DAILY [facility] Administration Budesonide/Formoterol Fumarate 2 puff 06/21/17 11:00 07/01/17 09:57 Symbicort 80/4.5mcg - IH 2 puff BID [facility] Administration Collagenase 1 applic 06/26/17 10:00 07/01/17 10:37 Santyl - TP Not Given DAILY [facility] Diltiazem HCl 30 mg 07/01/17 22:00 Cardizem - PO BID [facility] Docusate Sodium 100 mg 07/02/17 10:00 Colace - PO DAILY [facility] Vancomycin HCl 750 mg/ 250 mls @ 250 mls/hr 06/21/17 16:00 06/30/17 17:21 Dextrose IVPB 250 mls/hr Q24H [facility] Administration Protocol Ertapenem 1 gm/ Sodium 100 mls @ 200 mls/hr 06/26/17 10:00 07/01/17 10:39 Chloride IVPB 200 mls/hr DAILY [facility] Administration Protocol Insulin Aspart 1 vial 06/20/17 16:30 07/01/17 11:12 Novolog Vial Sliding Scale - SQ 2 units ACHS [facility] Administration Protocol Insulin Detemir 15 units 07/01/17 10:12 Levemir Vial SQ AM [facility] Lactobacillus Acidophilus 1 tab 06/29/17 10:00 07/01/17 09:56 Bacid - PO 1 tab DAILY [facility] Administration Metoprolol Tartrate 25 mg 07/02/17 10:00 Lopressor - PO DAILY [facility] Midodrine 10 mg 06/27/17 11:32 07/01/17 14:07 Proamatine - PO 10 mg TID-MID [facility] Administration Ondansetron HCl 4 mg 06/20/17 15:01 Zofran Injection IVPB Q6H PRN NAUSEA Ondansetron HCl 4 mg 06/20/17 15:01 Zofran Injection IVPUSH Q6H PRN NAUSEA AND/OR VOMITING Oxycodone HCl 5 mg 07/01/17 13:25 Roxicodone - PO Q6H PRN PAIN LEVEL 7 - 10 Pantoprazole Sodium 40 mg 06/25/17 19:30 07/01/17 09:56 Protonix - PO 40 mg DAILY [facility] Administration Tramadol HCl 50 mg 06/29/17 14:22 07/01/17 11:13 Ultram - PO 50 mg Q6H PRN Administration PAIN LEVEL 4 - 6 Impression 1. NOVA 2. hyperkalemia resolved 3. obesity 4. DM 5. a-fib 6. HTN 7. chronic lower extremity ulcers 8. gastritis 9. sepsis 10. hyponatremia 11. hypokalemia 12. hypotension Plan - blood pressure not changed - cont with midodrine - renal function is stable - vascular follow up - monitor bp - wound care - avoid nsaids - will follow Dr Epstein
[2017-07-01] MEDS: VANCOMYCIN 750 MG in DEXTROSE 5%-WATER - 250 ML IVPB SCH (16:55)
[2017-07-01] MEDS: oxyCODONE HCL 5 MG TABLET PO PRN (18:24)
[2017-07-01] MEDS ORDERED: ACETAMINOPHEN 325 MG TABLET (FP) PO PRN (21:15)
[2017-07-01] MEDS ORDERED: ONDANSETRON 4 MG/2 ML VIAL IVPB PRN (21:15)
[2017-07-01] MEDS ORDERED: ONDANSETRON 4 MG/2 ML VIAL IVPUSH PRN (21:15)
[2017-07-01] MEDS: dilTIAZem HCL 30 MG TABLET (FP) PO SCH (21:28)
[2017-07-02] MEDS: ARTIFICIAL TEARS (POLYVINYL ALCOHOL 1.4%) OPTH DROPS OU SCH ×3 (06:22→21:35)
[2017-07-02] MEDS: INSULIN SLIDING SCALE (NOVOLOG) 1 VIAL SQ SCH ×4 (06:22→21:33)
[2017-07-02] MEDS: INSULIN DETEMIR 100 UNITS/ML MDV SQ SCH (06:23)
[2017-07-02 07:42] LABS: BASO % 3.7 % (0-2.0); EOS % 6.3 % (0-4.5); HEMATOCRIT 27.9 % (32.4-45.2); HEMOGLOBIN 8.7 GM/dL (10.7-15.3); LYMPH % 9.6 % (8-40); MCH 27.1 pg (25.7-33.7); MCHC 31.1 g/dl (32.0-36.0); MEAN CELL VOLUME 87.1 fl (80-96); MEAN PLT VOLUME 9.3 fl (7.5-11.1); MONO % 8.4 % (3.8-10.2); PLATELET COUNT 437 K/MM3 (134-434); WHITE BLOOD COUNT 9.2 K/mm3 (4.0-10.0)
[2017-07-02 08:11] LABS: ALBUMIN 1.5 g/dl (3.4-5.0); ANION GAP 7 (8-16); BLOOD UREA NITROGEN 21 mg/dL (7-18); CALCIUM 8.2 mg/dL (8.5-10.1); CHLORIDE 110 mmol/L (98-107); CO2 25 mmol/L (21-32); CREATININE 0.8 mg/dL (0.55-1.02); GLUCOSE,RANDOM 97 mg/dL (74-106); MAGNESIUM 1.9 mg/dL (1.8-2.4); PHOSPHOROUS 3.9 mg/dL (2.5-4.9); POTASSIUM 4.2 mmol/L (3.5-5.1); SGOT/AST 13 U/L (15-37); SGPT/ALT 12 U/L (12-78); SODIUM 142 mmol/L (136-145)
[2017-07-02 08:13] LABS: ALK PHOS 86 U/L (45-117); BILIRUBIN,TOTAL 0.4 mg/dL (0.2-1.0); TOT PROT 5.3 g/dl (6.4-8.2)
--- NOTE | 2017-07-02 08:47 | PN ---
Progress Note, Physician History of Present Illness: more comfortable today - Current Medication List Current Medications: Active Medications Acetaminophen (Tylenol -) 650 mg PO Q6H PRN PRN Reason: PAIN LEVEL 1-5 Amino Acids (Prosource No Carb Liquid Pkt) 30 ml PO BID@0800,1730 [facility] Apixaban (Eliquis -) 5 mg PO BID [facility] Last Admin: 07/01/17 21:37 Dose: 5 mg Artificial Tears (Artificial Tears) 1 drop OU TID [facility] Last Admin: 07/02/17 06:22 Dose: 1 drop Ascorbic Acid (Vitamin C -) 500 mg PO DAILY [facility] Budesonide/Formoterol Fumarate (Symbicort 80/4.5mcg -) 2 puff IH BID [facility] Last Admin: 07/01/17 21:38 Dose: 2 puff Collagenase (Santyl -) 1 applic TP DAILY [facility] Diltiazem HCl (Cardizem -) 30 mg PO BID [facility] Last Admin: 07/01/17 21:28 Dose: 30 mg Docusate Sodium (Colace -) 100 mg PO DAILY [facility] Ertapenem 1 gm/ Sodium (Chloride) 100 mls @ 200 mls/hr IVPB DAILY [facility] PRN Reason: Protocol Vancomycin HCl 750 mg/ (Dextrose) 250 mls @ 250 mls/hr IVPB Q24H [facility] PRN Reason: Protocol Insulin Aspart (Novolog Vial Sliding Scale -) 1 vial SQ ACHS [facility] PRN Reason: Protocol Last Admin: 07/02/17 06:22 Dose: Not Given Insulin Detemir (Levemir Vial) 15 units SQ AM [facility] Last Admin: 07/02/17 06:23 Dose: Not Given Lactobacillus Acidophilus (Bacid -) 1 tab PO DAILY [facility] Metoprolol Tartrate (Lopressor -) 25 mg PO DAILY [facility] Midodrine (Proamatine -) 10 mg PO TID-MID [facility] Ondansetron HCl (Zofran Injection) 4 mg IVPB Q6H PRN PRN Reason: NAUSEA Oxycodone HCl (Roxicodone -) 5 mg PO Q6H PRN PRN Reason: PAIN LEVEL 7 - 10 Last Admin: 07/01/17 18:24 Dose: 5 mg Pantoprazole Sodium (Protonix -) 40 mg PO DAILY [facility] Tramadol HCl (Ultram -) 50 mg PO Q6H PRN PRN Reason: PAIN LEVEL 4 - 6 - Objective Vital Signs: Vital Signs Temperature 98.2 F 07/02/17 06:00 Pulse Rate 67 07/02/17 06:00 Respiratory Rate 20 07/02/17 06:00 Blood Pressure 92/55 07/02/17 06:00 O2 Sat by Pulse Oximetry (%) 98 07/01/17 21:00 Cardiovascular: Yes: Regular Rate and Rhythm Respiratory: Yes: Regular, CTA Bilaterally Gastrointestinal: Yes: Normal Bowel Sounds, Soft Edema: Yes Wound/Incision: Yes: Dressing Dry and Intact Labs: CBC, BMP 07/02/17 06:05 07/02/17 07:00 INR, PTT INR 1.16 (0.82-1.09) H 06/18/17 20:30 Problem List - Problems (1) Sepsis Code(s): A41.9 - SEPSIS, UNSPECIFIED ORGANISM Qualifiers: Sepsis type: sepsis due to unspecified organism Qualified Code(s): A41.9 - Sepsis, unspecified organism (2) Altered mental status Code(s): R41.82 - ALTERED MENTAL STATUS, UNSPECIFIED (3) Ulcers of both lower extremities Code(s): L97.919 - NON-PRS CHRONIC ULC UNSP PRT OF R LOW LEG W UNSP SEVERITY; L97.929 - NON-PRS CHRONIC ULC UNSP PRT OF L LOW LEG W UNSP SEVERITY Qualifiers: Non-pressure ulcer stage: unspecified non-pressure ulcer stage Qualified Code(s): L97.919 - Non-pressure chronic ulcer of unspecified part of right lower leg with unspecified severity; L97.929 - Non-pressure chronic ulcer of unspecified part of left lower leg with unspecified severity; L97.929 - Non- pressure chronic ulcer of unspecified part of left lower leg with unspecified severity; L97.929 - Non-pressure chronic ulcer of unspecified part of left lower leg with unspecified severity; L97.929 - Non-pressure chronic ulcer of unspecified part of left lower leg with unspecified severity (4) Afib Code(s): I48.91 - UNSPECIFIED ATRIAL FIBRILLATION (5) DM2 (diabetes mellitus, type 2) Code(s): E11.9 - TYPE 2 DIABETES MELLITUS WITHOUT COMPLICATIONS Qualifiers: Diabetes mellitus complication detail: with other circulatory complications (6) Renal failure (ARF), acute on chronic Code(s): N17.9 - ACUTE KIDNEY FAILURE, UNSPECIFIED; N18.9 - CHRONIC KIDNEY DISEASE, UNSPECIFIED Assessment/Plan - Problems (1) Electrolyte abnormality Assessment/Plan: K and Mag repleted will recheck Code(s): E87.8 - OTH DISORDERS OF ELECTROLYTE AND FLUID BALANCE, NEC (2) Leukocytosis Assessment/Plan: ID on board on iv abx-meropenem culture sent Microbiology 06/22/17 01:00 Blood - Central Line Blood Culture - Preliminary NO GROWTH OBTAINED AFTER 48 HOURS, INCUBATION TO CONTINUE FOR 3 DAYS. 06/22/17 00:30 Blood - Central Line Blood Culture - Preliminary NO GROWTH OBTAINED AFTER 48 HOURS, INCUBATION TO CONTINUE FOR 3 DAYS. wbc trending down Code(s): D72.829 - ELEVATED WHITE BLOOD CELL COUNT, UNSPECIFIED (3) Ulcers of both lower extremities Assessment/Plan: seen by vascular s/p debridement wound care per vascular ABX PER ID Code(s): L97.919 - NON-PRS CHRONIC ULC UNSP PRT OF R LOW LEG W UNSP SEVERITY; L97.929 - NON-PRS CHRONIC ULC UNSP PRT OF L LOW LEG W UNSP SEVERITY Qualifiers: Non-pressure ulcer stage: unspecified non-pressure ulcer stage Qualified Code(s): L97.919 - Non-pressure chronic ulcer of unspecified part of right lower leg with unspecified severity; L97.929 - Non-pressure chronic ulcer of unspecified part of left lower leg with unspecified severity; L97.929 - Non- pressure chronic ulcer of unspecified part of left lower leg with unspecified severity; L97.929 - Non-pressure chronic ulcer of unspecified part of left lower leg with unspecified severity; L97.929 - Non-pressure chronic ulcer of unspecified part of left lower leg with unspecified severity (4) Hyperkalemia Assessment/Plan: improved-resolved Code(s): E87.5 - HYPERKALEMIA (5) NOVA (acute kidney injury) Assessment/Plan: resolved making urine no more HD need bun/cr much improved and now normal Code(s): N17.9 - ACUTE KIDNEY FAILURE, UNSPECIFIED (6) Afib Assessment/Plan: on eliquis bid Code(s): I48.91 - UNSPECIFIED ATRIAL FIBRILLATION (7) DM2 (diabetes mellitus, type 2) Assessment/Plan: dc night time levemir given the low bgm in AM decrease AM levemir to 20 units Code(s): E11.9 - TYPE 2 DIABETES MELLITUS WITHOUT COMPLICATIONS Qualifiers: Diabetes mellitus complication detail: with other circulatory complications
[2017-07-02] MEDS ORDERED: PT OWN MED DRAWER 7, Y5N ONE (09:08)
[2017-07-02] MEDS: APIXABAN 5 MG TABLET PO SCH ×2 (09:20→21:38)
[2017-07-02] MEDS: ASCORBIC ACID 500 MG TABLET (FP) PO SCH (09:20)
[2017-07-02] MEDS: AMINO ACIDS/PROTEIN HYDROLYS 30 ML LIQUID.PKT PO SCH ×2 (09:20→17:10)
[2017-07-02] MEDS: DOCUSATE SODIUM 100 MG CAPSULE (FP) PO SCH (09:20)
[2017-07-02] MEDS: PANTOPRAZOLE 40 MG TABLET (FP) PO SCH (09:21)
[2017-07-02] MEDS: LACTOBACILLUS ACIDOPHILUS 1 EACH TAB (FP) PO SCH (09:21)
[2017-07-02] MEDS: MIDODRINE HCL 5 MG TABLET PO SCH ×3 (09:22→19:00)
[2017-07-02] MEDS ORDERED: METOPROLOL TARTRATE 25 MG TABLET (FP) PO SCH (10:00)
[2017-07-02] MEDS: oxyCODONE HCL 5 MG TABLET PO PRN ×2 (10:57→20:06)
[2017-07-02] MEDS: ERTAPENEM SODIUM 1 GM in SODIUM CHLORIDE 100 ML IVPB SCH (10:57)
[2017-07-02] MEDS: dilTIAZem HCL 30 MG TABLET (FP) PO SCH ×2 (10:58→21:34)
[2017-07-02] MEDS: BUDESONIDE/FORMETEROL FUMARATE 80/4.5 mcg INHALER IH SCH ×2 (10:58→21:35)
--- NOTE | 2017-07-02 12:31 | PN ---
Progress Note (short form) - Note Progress Note: PULMONARY Denies shortness of breath or chest pain. No fevers or chills. + leg pain improving. Last Vital Signs Temp Pulse Resp BP Pulse Ox 98.2 F 95 H 20 102/56 98 07/02/17 09:25 18 09:25 07/02/17 09:25 07/02/17 11:02 07/01/17 21:00 Gen: NAD at rest Heart: RRR Lung: decreased breath sounds at the bases Abd: soft, nontender Ext: dressings clean CBC, BMP 07/02/17 06:05 07/02/17 07:00 Active Medications Acetaminophen (Tylenol -) 650 mg PO Q6H PRN PRN Reason: PAIN LEVEL 1-5 Amino Acids (Prosource No Carb Liquid Pkt) 30 ml PO BID@0800,1730 [facility] Last Admin: 07/02/17 09:20 Dose: 30 ml Apixaban (Eliquis -) 5 mg PO BID [facility] Last Admin: 07/02/17 09:20 Dose: 5 mg Artificial Tears (Artificial Tears) 1 drop OU TID [facility] Last Admin: 07/02/17 06:22 Dose: 1 drop Ascorbic Acid (Vitamin C -) 500 mg PO DAILY [facility] Last Admin: 07/02/17 09:20 Dose: 500 mg Budesonide/Formoterol Fumarate (Symbicort 80/4.5mcg -) 2 puff IH BID [facility] Last Admin: 07/02/17 10:58 Dose: 2 puff Collagenase (Santyl -) 1 applic TP DAILY [facility] Diltiazem HCl (Cardizem -) 30 mg PO BID [facility] Last Admin: 07/02/17 10:58 Dose: 30 mg Docusate Sodium (Colace -) 100 mg PO DAILY [facility] Last Admin: 07/02/17 09:20 Dose: 100 mg Ertapenem 1 gm/ Sodium (Chloride) 100 mls @ 200 mls/hr IVPB DAILY [facility] PRN Reason: Protocol Last Admin: 07/02/17 10:57 Dose: 200 mls/hr Vancomycin HCl 750 mg/ (Dextrose) 250 mls @ 250 mls/hr IVPB Q24H [facility] PRN Reason: Protocol Insulin Aspart (Novolog Vial Sliding Scale -) 1 vial SQ ACHS [facility] PRN Reason: Protocol Last Admin: 07/02/17 11:01 Dose: Not Given Insulin Detemir (Levemir Vial) 15 units SQ AM [facility] Last Admin: 07/02/17 06:23 Dose: Not Given Lactobacillus Acidophilus (Bacid -) 1 tab PO DAILY [facility] Last Admin: 07/02/17 09:21 Dose: 1 tab Metoprolol Tartrate (Lopressor -) 25 mg PO DAILY [facility] Last Admin: 07/02/17 10:58 Dose: 25 mg Midodrine (Proamatine -) 10 mg PO TID-MID [facility] Last Admin: 07/02/17 09:22 Dose: 10 mg Ondansetron HCl (Zofran Injection) 4 mg IVPB Q6H PRN PRN Reason: NAUSEA Oxycodone HCl (Roxicodone -) 5 mg PO Q6H PRN PRN Reason: PAIN LEVEL 7 - 10 Last Admin: 07/02/17 10:57 Dose: 5 mg Pantoprazole Sodium (Protonix -) 40 mg PO DAILY [facility] Last Admin: 07/02/17 09:21 Dose: 40 mg Tramadol HCl (Ultram -) 50 mg PO Q6H PRN PRN Reason: PAIN LEVEL 4 - 6 A/P Cellulitis/r/o Leg Abscesses s/p Debridement Septic Shock resolving Acute on Chronic Renal Failure improving Lactic Acidosis resolved Atrial Fibrillation Uncontrolled DM - continue antibiotics per ID - wound care - O2 to keep SpO2 >90% - monitor urine output, creatinine - continue midodrine - glucose control - rate control - continue anticoagulation - aspiration precautions - PO as tolerated - DVT prophylaxis
--- NOTE | 2017-07-02 15:19 | PN ---
Progress Note, Physician History of Present Illness: Pt seen and examined at bedside. She is now in the medical soriano. - Current Medication List Current Medications: Active Medications Acetaminophen (Tylenol -) 650 mg PO Q6H PRN PRN Reason: PAIN LEVEL 1-5 Amino Acids (Prosource No Carb Liquid Pkt) 30 ml PO BID@0800,1730 [facility] Last Admin: 07/02/17 09:20 Dose: 30 ml Apixaban (Eliquis -) 5 mg PO BID [facility] Last Admin: 07/02/17 09:20 Dose: 5 mg Artificial Tears (Artificial Tears) 1 drop OU TID [facility] Last Admin: 07/02/17 06:22 Dose: 1 drop Ascorbic Acid (Vitamin C -) 500 mg PO DAILY [facility] Last Admin: 07/02/17 09:20 Dose: 500 mg Budesonide/Formoterol Fumarate (Symbicort 80/4.5mcg -) 2 puff IH BID [facility] Last Admin: 07/02/17 10:58 Dose: 2 puff Collagenase (Santyl -) 1 applic TP DAILY [facility] Diltiazem HCl (Cardizem -) 30 mg PO BID [facility] Last Admin: 07/02/17 10:58 Dose: 30 mg Docusate Sodium (Colace -) 100 mg PO DAILY [facility] Last Admin: 07/02/17 09:20 Dose: 100 mg Ertapenem 1 gm/ Sodium (Chloride) 100 mls @ 200 mls/hr IVPB DAILY [facility] PRN Reason: Protocol Last Admin: 07/02/17 10:57 Dose: 200 mls/hr Vancomycin HCl 750 mg/ (Dextrose) 250 mls @ 250 mls/hr IVPB Q24H [facility] PRN Reason: Protocol Insulin Aspart (Novolog Vial Sliding Scale -) 1 vial SQ ACHS [facility] PRN Reason: Protocol Last Admin: 07/02/17 11:01 Dose: Not Given Insulin Detemir (Levemir Vial) 15 units SQ AM [facility] Last Admin: 07/02/17 06:23 Dose: Not Given Lactobacillus Acidophilus (Bacid -) 1 tab PO DAILY [facility] Last Admin: 07/02/17 09:21 Dose: 1 tab Metoprolol Tartrate (Lopressor -) 25 mg PO DAILY [facility] Last Admin: 07/02/17 10:58 Dose: 25 mg Midodrine (Proamatine -) 10 mg PO TID-MID [facility] Last Admin: 02/06/18 09:22 Dose: 10 mg Ondansetron HCl (Zofran Injection) 4 mg IVPB Q6H PRN PRN Reason: NAUSEA Oxycodone HCl (Roxicodone -) 5 mg PO Q6H PRN PRN Reason: PAIN LEVEL 7 - 10 Last Admin: 07/02/17 10:57 Dose: 5 mg Pantoprazole Sodium (Protonix -) 40 mg PO DAILY [facility] Last Admin: 07/02/17 09:21 Dose: 40 mg Tramadol HCl (Ultram -) 50 mg PO Q6H PRN PRN Reason: PAIN LEVEL 4 - 6 - Objective Vital Signs: Vital Signs Temperature 98.2 F 07/02/17 09:25 Pulse Rate 95 H 07/02/17 09:25 Respiratory Rate 20 07/02/17 10:00 Blood Pressure 102/56 07/02/17 11:02 O2 Sat by Pulse Oximetry (%) 96 07/02/17 10:00 Constitutional: Yes: Calm Eyes: Yes: Conjunctiva Clear HENT: Yes: Atraumatic Neck: Yes: Supple Cardiovascular: Yes: S1, S2 Respiratory: Yes: CTA Bilaterally Gastrointestinal: Yes: Soft, Abdomen, Obese Genitourinary: Yes: Incontinence Edema: Yes Edema: LLE: Trace, RLE: Trace Neurological: Yes: Oriented Psychiatric: Yes: Oriented Labs: CBC, BMP 07/02/17 06:05 07/02/17 07:00 INR, PTT INR 1.16 (0.82-1.09) H 06/18/17 20:30 Problem List - Problems (1) Hyperkalemia Code(s): E87.5 - HYPERKALEMIA (2) Ulcers of both lower extremities Code(s): L97.919 - NON-PRS CHRONIC ULC UNSP PRT OF R LOW LEG W UNSP SEVERITY; L97.929 - NON-PRS CHRONIC ULC UNSP PRT OF L LOW LEG W UNSP SEVERITY Qualifiers: Qualified Code(s): L97.919 - Non-pressure chronic ulcer of unspecified part of right lower leg with unspecified severity; L97.929 - Non-pressure chronic ulcer of unspecified part of left lower leg with unspecified severity; L97.929 - Non-pressure chronic ulcer of unspecified part of left lower leg with unspecified severity; L97.929 - Non-pressure chronic ulcer of unspecified part of left lower leg with unspecified severity; L97.929 - Non-pressure chronic ulcer of unspecified part of left lower leg with unspecified severity (3) Unable to ambulate Code(s): R26.2 - DIFFICULTY IN WALKING, NOT ELSEWHERE CLASSIFIED (4) NOVA (acute kidney injury) Code(s): N17.9 - ACUTE KIDNEY FAILURE, UNSPECIFIED (5) Acute renal failure Code(s): N17.9 - ACUTE KIDNEY FAILURE, UNSPECIFIED (6) Afib Code(s): I48.91 - UNSPECIFIED ATRIAL FIBRILLATION Assessment/Plan Current Medications Generic Name Dose Route Start Last Admin Trade Name Freq PRN Reason Stop Dose Admin Acetaminophen 650 mg 07/01/17 21:15 Tylenol - PO Q6H PRN PAIN LEVEL 1-5 Amino Acids 30 ml 07/02/17 08:00 07/02/17 09:20 [employer] No Carb Liquid Pkt PO 30 ml BID@0800,1730 [facility] Administration Apixaban 5 mg 07/01/17 22:00 07/02/17 09:20 Eliquis - PO 5 mg BID [facility] Administration Artificial Tears 1 drop 07/01/17 22:00 07/02/17 06:22 Artificial Tears OU 1 drop TID [facility] Administration Ascorbic Acid 500 mg 07/02/17 10:00 07/02/17 09:20 Vitamin C - PO 500 mg DAILY [facility] Administration Budesonide/Formoterol Fumarate 2 puff 07/01/17 22:00 07/02/17 10:58 Symbicort 80/4.5mcg - IH 2 puff BID [facility] Administration Collagenase 1 applic 07/02/17 10:00 Santyl - TP DAILY [facility] Diltiazem HCl 30 mg 07/01/17 22:00 07/02/17 10:58 Cardizem - PO 30 mg BID [facility] Administration Docusate Sodium 100 mg 07/02/17 10:00 07/02/17 09:20 Colace - PO 100 mg DAILY [facility] Administration Ertapenem 1 gm/ Sodium 100 mls @ 200 mls/hr 07/02/17 10:00 07/02/17 10:57 Chloride IVPB 200 mls/hr DAILY [facility] Administration Protocol Vancomycin HCl 750 mg/ 250 mls @ 250 mls/hr 07/02/17 16:00 Dextrose IVPB Q24H [facility] Protocol Insulin Aspart 1 vial 07/01/17 22:00 07/02/17 11:01 Novolog Vial Sliding Scale - SQ Not Given ACHS [facility] Protocol Insulin Detemir 15 units 07/02/17 07:00 07/02/17 06:23 Levemir Vial SQ Not Given AM [facility] Lactobacillus Acidophilus 1 tab 07/02/17 10:00 07/02/17 09:21 Bacid - PO 1 tab DAILY [facility] Administration Metoprolol Tartrate 25 mg 07/02/17 10:00 07/02/17 10:58 Lopressor - PO 25 mg DAILY [facility] Administration Midodrine 10 mg 07/02/17 10:00 07/02/17 09:22 Proamatine - PO 10 mg TID-MID [facility] Administration Ondansetron HCl 4 mg 07/01/17 21:15 Zofran Injection IVPB Q6H PRN NAUSEA Oxycodone HCl 5 mg 07/01/17 13:25 07/02/17 10:57 Roxicodone - PO 5 mg Q6H PRN Administration PAIN LEVEL 7 - 10 Pantoprazole Sodium 40 mg 07/02/17 10:00 07/02/17 09:21 Protonix - PO 40 mg DAILY [facility] Administration Tramadol HCl 50 mg 07/01/17 21:15 Ultram - PO Q6H PRN PAIN LEVEL 4 - 6 Impression 1. NOVA 2. hyperkalemia resolved 3. obesity 4. DM 5. a-fib 6. HTN 7. chronic lower extremity ulcers 8. gastritis 9. sepsis 10. hyponatremia 11. hypokalemia 12. hypotension Plan - bp is improving - will try to start titrating down midodrine tomorrow - cardio follow up - wound care - avoid nsaids - will follow Dr Epstein
--- NOTE | 2017-07-02 15:21 | PN ---
Progress Note, Physician Chief Complaint: Cardiology consult follow up. Telemetry with Afib HR 80s. History of Present Illness: Admitted with sepsis, cellulitis and abcess with acute renal failure and atrial fibrillation. Renal function has normalized. The patient denies dizziness. BP relatively low but no orthostatic BP decline. - Current Medication List Current Medications: Active Medications Acetaminophen (Tylenol -) 650 mg PO Q6H PRN PRN Reason: PAIN LEVEL 1-5 Amino Acids (Prosource No Carb Liquid Pkt) 30 ml PO BID@0800,1730 [facility] Last Admin: 07/02/17 09:20 Dose: 30 ml Apixaban (Eliquis -) 5 mg PO BID [facility] Last Admin: 07/02/17 09:20 Dose: 5 mg Artificial Tears (Artificial Tears) 1 drop OU TID [facility] Last Admin: 07/02/17 06:22 Dose: 1 drop Ascorbic Acid (Vitamin C -) 500 mg PO DAILY [facility] Last Admin: 07/02/17 09:20 Dose: 500 mg Budesonide/Formoterol Fumarate (Symbicort 80/4.5mcg -) 2 puff IH BID [facility] Last Admin: 07/02/17 10:58 Dose: 2 puff Collagenase (Santyl -) 1 applic TP DAILY [facility] Diltiazem HCl (Cardizem -) 30 mg PO BID [facility] Last Admin: 07/02/17 10:58 Dose: 30 mg Docusate Sodium (Colace -) 100 mg PO DAILY [facility] Last Admin: 07/02/17 09:20 Dose: 100 mg Ertapenem 1 gm/ Sodium (Chloride) 100 mls @ 200 mls/hr IVPB DAILY [facility] PRN Reason: Protocol Last Admin: 07/02/17 10:57 Dose: 200 mls/hr Vancomycin HCl 750 mg/ (Dextrose) 250 mls @ 250 mls/hr IVPB Q24H [facility] PRN Reason: Protocol Insulin Aspart (Novolog Vial Sliding Scale -) 1 vial SQ ACHS [facility] PRN Reason: Protocol Last Admin: 07/02/17 11:01 Dose: Not Given Insulin Detemir (Levemir Vial) 15 units SQ AM [facility] Last Admin: 07/02/17 06:23 Dose: Not Given Lactobacillus Acidophilus (Bacid -) 1 tab PO DAILY [facility] Last Admin: 07/02/17 09:21 Dose: 1 tab Metoprolol Tartrate (Lopressor -) 25 mg PO DAILY [facility] Last Admin: 07/02/17 10:58 Dose: 25 mg Midodrine (Proamatine -) 10 mg PO TID-MID [facility] Last Admin: 07/02/17 09:22 Dose: 10 mg Ondansetron HCl (Zofran Injection) 4 mg IVPB Q6H PRN PRN Reason: NAUSEA Oxycodone HCl (Roxicodone -) 5 mg PO Q6H PRN PRN Reason: PAIN LEVEL 7 - 10 Last Admin: 07/02/17 10:57 Dose: 5 mg Pantoprazole Sodium (Protonix -) 40 mg PO DAILY [facility] Last Admin: 07/02/17 09:21 Dose: 40 mg Tramadol HCl (Ultram -) 50 mg PO Q6H PRN PRN Reason: PAIN LEVEL 4 - 6 - Objective Vital Signs: Vital Signs Temperature 98.2 F 07/02/17 09:25 Pulse Rate 95 H 07/02/17 09:25 Respiratory Rate 20 07/02/17 10:00 Blood Pressure 102/56 07/02/17 11:02 O2 Sat by Pulse Oximetry (%) 96 07/02/17 10:00 Constitutional: Yes: Well Nourished, No Distress, Calm Eyes: Yes: Conjunctiva Clear, EOM Intact HENT: Yes: Atraumatic, Normocephalic Neck: Yes: Supple, Trachea Midline Cardiovascular: Yes: Pulse Irregular, S1, S2. No: JVD Respiratory: Yes: Regular, CTA Bilaterally Gastrointestinal: Yes: Normal Bowel Sounds, Soft Edema: Yes Edema: LLE: 1+, RLE: 1+ Labs: CBC, BMP 07/02/17 06:05 07/02/17 07:00 INR, PTT INR 1.16 (0.82-1.09) H 06/18/17 20:30 Problem List - Problems (1) Afib Code(s): I48.91 - UNSPECIFIED ATRIAL FIBRILLATION Assessment/Plan Persistent Afib with controlled ventricular response. BP at times relatively low and has been on Midodrine. Rec DC metoprolol Add Digoxin 0.125mg qd Can consider lowering midodrine dose to BID.
[2017-07-02] MEDS: VANCOMYCIN 750 MG in DEXTROSE 5%-WATER - 250 ML IVPB SCH (17:09)
[2017-07-02] MEDS: traMADol HCL 50 MG TABLET PO PRN (17:09)
[2017-07-02] MEDS: COLLAGENASE CLOSTRIDIUM HIST. 30 GRAMS TUBE TP SCH (19:00)
[2017-07-03] MEDS: COLLAGENASE CLOSTRIDIUM HIST. 30 GRAMS TUBE TP SCH ×2 (05:52→11:03)
[2017-07-03] MEDS: ARTIFICIAL TEARS (POLYVINYL ALCOHOL 1.4%) OPTH DROPS OU SCH ×4 (06:23→21:53)
[2017-07-03] MEDS: INSULIN SLIDING SCALE (NOVOLOG) 1 VIAL SQ SCH ×4 (06:23→21:54)
[2017-07-03] MEDS: INSULIN DETEMIR 100 UNITS/ML MDV SQ SCH (06:29)
--- NOTE | 2017-07-03 08:47 | PN ---
Progress Note, Physician - Current Medication List Current Medications: Active Medications Acetaminophen (Tylenol -) 650 mg PO Q6H PRN PRN Reason: PAIN LEVEL 1-5 Amino Acids (Prosource No Carb Liquid Pkt) 30 ml PO BID@0800,1730 [facility] Last Admin: 07/02/17 17:10 Dose: 30 ml Apixaban (Eliquis -) 5 mg PO BID [facility] Last Admin: 07/02/17 21:38 Dose: Not Given Artificial Tears (Artificial Tears) 1 drop OU TID [facility] Last Admin: 07/03/17 06:27 Dose: 1 drop Ascorbic Acid (Vitamin C -) 500 mg PO DAILY [facility] Last Admin: 07/02/17 09:20 Dose: 500 mg Budesonide/Formoterol Fumarate (Symbicort 80/4.5mcg -) 2 puff IH BID [facility] Last Admin: 07/02/17 21:35 Dose: 2 puff Collagenase (Santyl -) 1 applic TP DAILY [facility] Last Admin: 07/02/17 19:00 Dose: 1 applic Digoxin (Lanoxin -) 0.125 mg PO DAILY [facility] Digoxin (Lanoxin -) 0.25 mg PO ONCE ONE Stop: 07/03/17 08:46 Diltiazem HCl (Cardizem -) 30 mg PO BID [facility] Last Admin: 07/02/17 21:34 Dose: 30 mg Docusate Sodium (Colace -) 100 mg PO DAILY [facility] Last Admin: 07/02/17 09:20 Dose: 100 mg Ertapenem 1 gm/ Sodium (Chloride) 100 mls @ 200 mls/hr IVPB DAILY [facility] PRN Reason: Protocol Last Admin: 07/02/17 10:57 Dose: 200 mls/hr Vancomycin HCl 750 mg/ (Dextrose) 250 mls @ 250 mls/hr IVPB Q24H [facility] PRN Reason: Protocol Last Admin: 07/02/17 17:09 Dose: 250 mls/hr Insulin Aspart (Novolog Vial Sliding Scale -) 1 vial SQ ACHS [facility] PRN Reason: Protocol Last Admin: 07/03/17 06:23 Dose: Not Given Insulin Detemir (Levemir Vial) 15 units SQ AM [facility] Last Admin: 07/03/17 06:29 Dose: 15 unit Lactobacillus Acidophilus (Bacid -) 1 tab PO DAILY [facility] Last Admin: 02/06/18 09:21 Dose: 1 tab Midodrine (Proamatine -) 10 mg PO TID-MID [facility] Last Admin: 07/02/17 19:00 Dose: Not Given Ondansetron HCl (Zofran Injection) 4 mg IVPB Q6H PRN PRN Reason: NAUSEA Oxycodone HCl (Roxicodone -) 5 mg PO Q6H PRN PRN Reason: PAIN LEVEL 7 - 10 Last Admin: 07/02/17 20:06 Dose: 5 mg Pantoprazole Sodium (Protonix -) 40 mg PO DAILY [facility] Last Admin: 07/02/17 09:21 Dose: 40 mg Tramadol HCl (Ultram -) 50 mg PO Q6H PRN PRN Reason: PAIN LEVEL 4 - 6 Last Admin: 07/02/17 17:09 Dose: 50 mg - Objective Vital Signs: Vital Signs Temperature 98.1 F 07/03/17 05:00 Pulse Rate 89 07/03/17 05:00 Respiratory Rate 18 07/03/17 05:00 Blood Pressure 117/60 07/03/17 05:00 O2 Sat by Pulse Oximetry (%) 93 L 07/02/17 21:00 Cardiovascular: Yes: Tachycardia, Pulse Irregular, S1, S2 Respiratory: Yes: Regular, CTA Bilaterally Gastrointestinal: Yes: Normal Bowel Sounds, Soft Labs: CBC, BMP 07/02/17 06:05 07/02/17 07:00 INR, PTT INR 1.16 (0.82-1.09) H 06/18/17 20:30 Problem List - Problems (1) Sepsis Code(s): A41.9 - SEPSIS, UNSPECIFIED ORGANISM Qualifiers: Sepsis type: sepsis due to unspecified organism Qualified Code(s): A41.9 - Sepsis, unspecified organism (2) Altered mental status Code(s): R41.82 - ALTERED MENTAL STATUS, UNSPECIFIED (3) Ulcers of both lower extremities Code(s): L97.919 - NON-PRS CHRONIC ULC UNSP PRT OF R LOW LEG W UNSP SEVERITY; L97.929 - NON-PRS CHRONIC ULC UNSP PRT OF L LOW LEG W UNSP SEVERITY Qualifiers: Non-pressure ulcer stage: unspecified non-pressure ulcer stage Qualified Code(s): L97.919 - Non-pressure chronic ulcer of unspecified part of right lower leg with unspecified severity; L97.929 - Non-pressure chronic ulcer of unspecified part of left lower leg with unspecified severity; L97.929 - Non- pressure chronic ulcer of unspecified part of left lower leg with unspecified severity; L97.929 - Non-pressure chronic ulcer of unspecified part of left lower leg with unspecified severity; L97.929 - Non-pressure chronic ulcer of unspecified part of left lower leg with unspecified severity (4) Afib Code(s): I48.91 - UNSPECIFIED ATRIAL FIBRILLATION (5) DM2 (diabetes mellitus, type 2) Code(s): E11.9 - TYPE 2 DIABETES MELLITUS WITHOUT COMPLICATIONS Qualifiers: Diabetes mellitus complication detail: with other circulatory complications (6) Renal failure (ARF), acute on chronic Code(s): N17.9 - ACUTE KIDNEY FAILURE, UNSPECIFIED; N18.9 - CHRONIC KIDNEY DISEASE, UNSPECIFIED Assessment/Plan - Problems (1) Electrolyte abnormality Assessment/Plan: K and Mag repleted will recheck Code(s): E87.8 - OTH DISORDERS OF ELECTROLYTE AND FLUID BALANCE, NEC (2) Leukocytosis Assessment/Plan: ID on board on iv abx-meropenem culture sent Microbiology 06/22/17 01:00 Blood - Central Line Blood Culture - Preliminary NO GROWTH OBTAINED AFTER 48 HOURS, INCUBATION TO CONTINUE FOR 3 DAYS. 06/22/17 00:30 Blood - Central Line Blood Culture - Preliminary NO GROWTH OBTAINED AFTER 48 HOURS, INCUBATION TO CONTINUE FOR 3 DAYS. wbc trending down Code(s): D72.829 - ELEVATED WHITE BLOOD CELL COUNT, UNSPECIFIED (3) Ulcers of both lower extremities Assessment/Plan: seen by vascular s/p debridement wound care per vascular ABX PER ID Code(s): L97.919 - NON-PRS CHRONIC ULC UNSP PRT OF R LOW LEG W UNSP SEVERITY; L97.929 - NON-PRS CHRONIC ULC UNSP PRT OF L LOW LEG W UNSP SEVERITY Qualifiers: Non-pressure ulcer stage: unspecified non-pressure ulcer stage Qualified Code(s): L97.919 - Non-pressure chronic ulcer of unspecified part of right lower leg with unspecified severity; L97.929 - Non-pressure chronic ulcer of unspecified part of left lower leg with unspecified severity; L97.929 - Non- pressure chronic ulcer of unspecified part of left lower leg with unspecified severity; L97.929 - Non-pressure chronic ulcer of unspecified part of left lower leg with unspecified severity; L97.929 - Non-pressure chronic ulcer of unspecified part of left lower leg with unspecified severity (4) Hyperkalemia Assessment/Plan: improved-resolved Code(s): E87.5 - HYPERKALEMIA (5) NOVA (acute kidney injury) Assessment/Plan: resolved making urine no more HD need bun/cr much improved and now normal Code(s): N17.9 - ACUTE KIDNEY FAILURE, UNSPECIFIED (6) Afib Assessment/Plan: on eliquis bid rate high--per cardio dc metoprolol and add dig Code(s): I48.91 - UNSPECIFIED ATRIAL FIBRILLATION (7) DM2 (diabetes mellitus, type 2) Assessment/Plan: dc night time levemir given the low bgm in AM decrease AM levemir to 20 units Code(s): E11.9 - TYPE 2 DIABETES MELLITUS WITHOUT COMPLICATIONS Qualifiers: Diabetes mellitus complication detail: with other circulatory complications
[2017-07-03] MEDS: AMINO ACIDS/PROTEIN HYDROLYS 30 ML LIQUID.PKT PO SCH ×2 (09:00→17:47)
[2017-07-03] MEDS ORDERED: PT OWN MED DRAWER 7, Y5N ONE ×2 (09:19→14:53)
[2017-07-03] MEDS ORDERED: DIGOXIN 0.25 MG TABLET (FP) PO ONE (10:00)
[2017-07-03] MEDS: ERTAPENEM SODIUM 1 GM in SODIUM CHLORIDE 100 ML IVPB SCH (10:08)
[2017-07-03] MEDS: ASCORBIC ACID 500 MG TABLET (FP) PO SCH (10:09)
[2017-07-03] MEDS: APIXABAN 5 MG TABLET PO SCH ×2 (10:09→21:53)
[2017-07-03] MEDS: DOCUSATE SODIUM 100 MG CAPSULE (FP) PO SCH (10:09)
[2017-07-03] MEDS: PANTOPRAZOLE 40 MG TABLET (FP) PO SCH (10:09)
[2017-07-03] MEDS: LACTOBACILLUS ACIDOPHILUS 1 EACH TAB (FP) PO SCH (10:09)
[2017-07-03] MEDS: MIDODRINE HCL 5 MG TABLET PO SCH ×2 (10:12→15:35)
[2017-07-03] MEDS ORDERED: INSULIN (NOVOLOG) ASPART 100 UNITS/ML 10ML VIAL ONE (10:51)
[2017-07-03] MEDS: BUDESONIDE/FORMETEROL FUMARATE 80/4.5 mcg INHALER IH SCH ×2 (11:00→21:54)
[2017-07-03] MEDS: traMADol HCL 50 MG TABLET PO PRN ×2 (11:01→21:55)
[2017-07-03] MEDS: dilTIAZem HCL 30 MG TABLET (FP) PO SCH ×2 (11:03→21:53)
--- NOTE | 2017-07-03 12:52 | PN ---
Progress Note, Physician History of Present Illness: Pt seen and examined at bedside. She is awake and alert. She denies shortness of breath. - Current Medication List Current Medications: Active Medications Acetaminophen (Tylenol -) 650 mg PO Q6H PRN PRN Reason: PAIN LEVEL 1-5 Amino Acids (Prosource No Carb Liquid Pkt) 30 ml PO BID@0800,1730 [facility] Last Admin: 07/03/17 09:00 Dose: 30 ml Apixaban (Eliquis -) 5 mg PO BID [facility] Last Admin: 07/03/17 10:09 Dose: 5 mg Artificial Tears (Artificial Tears) 1 drop OU TID [facility] Last Admin: 07/03/17 06:27 Dose: 1 drop Ascorbic Acid (Vitamin C -) 500 mg PO DAILY [facility] Last Admin: 07/03/17 10:09 Dose: 500 mg Budesonide/Formoterol Fumarate (Symbicort 80/4.5mcg -) 2 puff IH BID [facility] Last Admin: 07/03/17 11:00 Dose: 2 puff Collagenase (Santyl -) 1 applic TP DAILY [facility] Last Admin: 07/03/17 11:03 Dose: Not Given Digoxin (Lanoxin -) 0.125 mg PO DAILY [facility] Diltiazem HCl (Cardizem -) 30 mg PO BID [facility] Last Admin: 07/03/17 11:03 Dose: 30 mg Docusate Sodium (Colace -) 100 mg PO DAILY [facility] Last Admin: 07/03/17 10:09 Dose: 100 mg Ertapenem 1 gm/ Sodium (Chloride) 100 mls @ 200 mls/hr IVPB DAILY [facility] PRN Reason: Protocol Last Admin: 07/03/17 10:08 Dose: 200 mls/hr Vancomycin HCl 750 mg/ (Dextrose) 250 mls @ 250 mls/hr IVPB Q24H [facility] PRN Reason: Protocol Last Admin: 07/02/17 17:09 Dose: 250 mls/hr Insulin Aspart (Novolog Vial Sliding Scale -) 1 vial SQ ACHS [facility] PRN Reason: Protocol Last Admin: 07/03/17 11:07 Dose: 2 units Insulin Detemir (Levemir Vial) 15 units SQ AM [facility] Last Admin: 07/03/17 06:29 Dose: 15 unit Lactobacillus Acidophilus (Bacid -) 1 tab PO DAILY [facility] Last Admin: 07/03/17 10:09 Dose: 1 tab Midodrine (Proamatine -) 10 mg PO TID-MID [facility] Last Admin: 07/03/17 10:12 Dose: 10 mg Ondansetron HCl (Zofran Injection) 4 mg IVPB Q6H PRN PRN Reason: NAUSEA Oxycodone HCl (Roxicodone -) 5 mg PO Q6H PRN PRN Reason: PAIN LEVEL 7 - 10 Last Admin: 07/02/17 20:06 Dose: 5 mg Pantoprazole Sodium (Protonix -) 40 mg PO DAILY [facility] Last Admin: 07/03/17 10:09 Dose: 40 mg Tramadol HCl (Ultram -) 50 mg PO Q6H PRN PRN Reason: PAIN LEVEL 4 - 6 Last Admin: 07/03/17 11:01 Dose: 50 mg - Objective Vital Signs: Vital Signs Temperature 98.3 F 07/03/17 09:00 Pulse Rate 105 H 07/03/17 10:09 Respiratory Rate 22 07/03/17 09:00 Blood Pressure 95/52 07/03/17 09:00 O2 Sat by Pulse Oximetry (%) 95 07/03/17 09:00 Constitutional: Yes: Calm Eyes: Yes: Conjunctiva Clear HENT: Yes: Atraumatic Neck: Yes: Supple Cardiovascular: Yes: S1, S2 Respiratory: Yes: CTA Bilaterally Gastrointestinal: Yes: Normal Bowel Sounds, Soft, Abdomen, Obese Genitourinary: Yes: WNL Musculoskeletal: Yes: Other (lower ext wounds) Edema: Yes Edema: LLE: Trace, RLE: Trace Neurological: Yes: Oriented Psychiatric: Yes: Oriented Labs: CBC, BMP 07/02/17 06:05 07/02/17 07:00 INR, PTT INR 1.16 (0.82-1.09) H 06/18/17 20:30 Problem List - Problems (1) Hyperkalemia Code(s): E87.5 - HYPERKALEMIA (2) Ulcers of both lower extremities Code(s): L97.919 - NON-PRS CHRONIC ULC UNSP PRT OF R LOW LEG W UNSP SEVERITY; L97.929 - NON-PRS CHRONIC ULC UNSP PRT OF L LOW LEG W UNSP SEVERITY Qualifiers: Non-pressure ulcer stage: unspecified non-pressure ulcer stage Qualified Code(s): L97.919 - Non-pressure chronic ulcer of unspecified part of right lower leg with unspecified severity; L97.929 - Non-pressure chronic ulcer of unspecified part of left lower leg with unspecified severity; L97.929 - Non- pressure chronic ulcer of unspecified part of left lower leg with unspecified severity; L97.929 - Non-pressure chronic ulcer of unspecified part of left lower leg with unspecified severity; L97.929 - Non-pressure chronic ulcer of unspecified part of left lower leg with unspecified severity (3) Unable to ambulate Code(s): R26.2 - DIFFICULTY IN WALKING, NOT ELSEWHERE CLASSIFIED (4) NOVA (acute kidney injury) Code(s): N17.9 - ACUTE KIDNEY FAILURE, UNSPECIFIED (5) Acute renal failure Code(s): N17.9 - ACUTE KIDNEY FAILURE, UNSPECIFIED (6) Afib Code(s): I48.91 - UNSPECIFIED ATRIAL FIBRILLATION Assessment/Plan Current Medications Generic Name Dose Route Start Last Admin Trade Name Freq PRN Reason Stop Dose Admin Acetaminophen 650 mg 07/01/17 21:15 Tylenol - PO Q6H PRN PAIN LEVEL 1-5 Amino Acids 30 ml 07/02/17 08:00 07/03/17 09:00 Prosource No Carb Liquid Pkt PO 30 ml BID@0800,1730 [facility] Administration Apixaban 5 mg 07/01/17 22:00 07/03/17 10:09 Eliquis - PO 5 mg BID [facility] Administration Artificial Tears 1 drop 07/01/17 22:00 07/03/17 06:27 Artificial Tears OU 1 drop TID [facility] Administration Ascorbic Acid 500 mg 07/02/17 10:00 07/03/17 10:09 Vitamin C - PO 500 mg DAILY [facility] Administration Budesonide/Formoterol Fumarate 2 puff 07/01/17 22:00 07/03/17 11:00 Symbicort 80/4.5mcg - IH 2 puff BID [facility] Administration Collagenase 1 applic 07/02/17 10:00 07/03/17 11:03 Santyl - TP Not Given DAILY [facility] Digoxin 0.125 mg 07/04/17 10:00 Lanoxin - PO DAILY [facility] Diltiazem HCl 30 mg 07/01/17 22:00 02/07/18 11:03 Cardizem - PO 30 mg BID [facility] Administration Docusate Sodium 100 mg 07/02/17 10:00 07/03/17 10:09 Colace - PO 100 mg DAILY [facility] Administration Ertapenem 1 gm/ Sodium 100 mls @ 200 mls/hr 07/02/17 10:00 07/03/17 10:08 Chloride IVPB 200 mls/hr DAILY [facility] Administration Protocol Vancomycin HCl 750 mg/ 250 mls @ 250 mls/hr 07/02/17 16:00 07/02/17 17:09 Dextrose IVPB 250 mls/hr Q24H [facility] Administration Protocol Insulin Aspart 1 vial 07/01/17 22:00 07/03/17 11:07 Novolog Vial Sliding Scale - SQ 2 units ACHS [facility] Administration Protocol Insulin Detemir 15 units 07/02/17 07:00 07/03/17 06:29 Levemir Vial SQ 15 unit AM [facility] Administration Lactobacillus Acidophilus 1 tab 07/02/17 10:00 07/03/17 10:09 Bacid - PO 1 tab DAILY [facility] Administration Midodrine 10 mg 07/02/17 10:00 07/03/17 10:12 Proamatine - PO 10 mg TID-MID [facility] Administration Ondansetron HCl 4 mg 07/01/17 21:15 Zofran Injection IVPB Q6H PRN NAUSEA Oxycodone HCl 5 mg 07/01/17 13:25 07/02/17 20:06 Roxicodone - PO 5 mg Q6H PRN Administration PAIN LEVEL 7 - 10 Pantoprazole Sodium 40 mg 07/02/17 10:00 07/03/17 10:09 Protonix - PO 40 mg DAILY [facility] Administration Tramadol HCl 50 mg 07/01/17 21:15 07/03/17 11:01 Ultram - PO 50 mg Q6H PRN Administration PAIN LEVEL 4 - 6 Impression 1. NOVA 2. hyperkalemia resolved 3. obesity 4. DM 5. a-fib 6. HTN 7. chronic lower extremity ulcers 8. gastritis 9. sepsis 10. hyponatremia 11. hypokalemia 12. hypotension Plan - bp is improving, will decrease midodrine dose - spoke to cardiology for follow up - renal function is stable - cont abx - ID follow up - wound care - avoid nsaids - will follow Dr Epstein
[2017-07-03] MEDS: VANCOMYCIN 750 MG in DEXTROSE 5%-WATER - 250 ML IVPB SCH (15:01)
--- NOTE | 2017-07-03 15:53 | PN ---
Progress Note, Physician Chief Complaint: Patient is lying comfortably. She has no palpitation, chest pain or SOB at rest. Tele shows persistent atrial fibrillation with average heart rat of 90-100 bpm. History of Present Illness: 52 year-old obese woman admitted with sepsis, cellulitis and abcess with acute renal failure and atrial fibrillation. Renal function has normalized. BP relatively low but no orthostatic BP decline. She still has dizziness/ lightheadedness when sitting. - Current Medication List Current Medications: Active Medications Acetaminophen (Tylenol -) 650 mg PO Q6H PRN PRN Reason: PAIN LEVEL 1-5 Amino Acids (Prosource No Carb Liquid Pkt) 30 ml PO BID@0800,1730 [facility] Last Admin: 07/03/17 09:00 Dose: 30 ml Apixaban (Eliquis -) 5 mg PO BID [facility] Last Admin: 07/03/17 10:09 Dose: 5 mg Artificial Tears (Artificial Tears) 1 drop OU TID [facility] Last Admin: 07/03/17 14:57 Dose: 1 drop Ascorbic Acid (Vitamin C -) 500 mg PO DAILY [facility] Last Admin: 07/03/17 10:09 Dose: 500 mg Budesonide/Formoterol Fumarate (Symbicort 80/4.5mcg -) 2 puff IH BID [facility] Last Admin: 07/03/17 11:00 Dose: 2 puff Collagenase (Santyl -) 1 applic TP DAILY [facility] Last Admin: 07/03/17 11:03 Dose: Not Given Digoxin (Lanoxin -) 0.125 mg PO DAILY [facility] Diltiazem HCl (Cardizem -) 30 mg PO BID [facility] Last Admin: 07/03/17 11:03 Dose: 30 mg Docusate Sodium (Colace -) 100 mg PO DAILY [facility] Last Admin: 07/03/17 10:09 Dose: 100 mg Ertapenem 1 gm/ Sodium (Chloride) 100 mls @ 200 mls/hr IVPB DAILY [facility] PRN Reason: Protocol Last Admin: 07/03/17 10:08 Dose: 200 mls/hr Vancomycin HCl 750 mg/ (Dextrose) 250 mls @ 250 mls/hr IVPB Q24H [facility] PRN Reason: Protocol Last Admin: 07/03/17 15:01 Dose: 250 mls/hr Insulin Aspart (Novolog Vial Sliding Scale -) 1 vial SQ ACHS [facility] PRN Reason: Protocol Last Admin: 07/03/17 11:07 Dose: 2 units Insulin Detemir (Levemir Vial) 15 units SQ AM [facility] Last Admin: 07/03/17 06:29 Dose: 15 unit Lactobacillus Acidophilus (Bacid -) 1 tab PO DAILY [facility] Last Admin: 07/03/17 10:09 Dose: 1 tab Midodrine (Proamatine -) 7.5 mg PO TID-MID [facility] Last Admin: 07/03/17 15:35 Dose: 7.5 mg Ondansetron HCl (Zofran Injection) 4 mg IVPB Q6H PRN PRN Reason: NAUSEA Oxycodone HCl (Roxicodone -) 5 mg PO Q6H PRN PRN Reason: PAIN LEVEL 7 - 10 Last Admin: 07/02/17 20:06 Dose: 5 mg Pantoprazole Sodium (Protonix -) 40 mg PO DAILY [facility] Last Admin: 07/03/17 10:09 Dose: 40 mg Tramadol HCl (Ultram -) 50 mg PO Q6H PRN PRN Reason: PAIN LEVEL 4 - 6 Last Admin: 07/03/17 11:01 Dose: 50 mg - Objective Vital Signs: Vital Signs Temperature 97.7 F 07/03/17 14:00 Pulse Rate 103 H 07/03/17 14:00 Respiratory Rate 22 07/03/17 09:00 Blood Pressure 105/81 07/03/17 14:00 O2 Sat by Pulse Oximetry (%) 95 07/03/17 09:00 Constitutional: Yes: Well Nourished, No Distress, Obese Eyes: Yes: Conjunctiva Clear, EOM Intact HENT: Yes: Atraumatic, Normocephalic Neck: Yes: Supple, Trachea Midline Cardiovascular: Yes: Pulse Irregular Respiratory: Yes: Regular, CTA Bilaterally Gastrointestinal: Yes: Normal Bowel Sounds, Soft, Abdomen, Obese ...Rectal Exam: Yes: Deferred Edema: Yes (Dressing intact. ) Labs: CBC, BMP 07/02/17 06:05 07/02/17 07:00 INR, PTT INR 1.16 (0.82-1.09) H 06/18/17 20:30 Assessment/Plan 52 year-old obese woman admitted with sepsis, cellulitis and abcess with acute renal failure and atrial fibrillation. Renal function has normalized. BP relatively low but no orthostatic BP decline. She still has dizziness/ lightheadedness when sitting. Persistent Afib with mild ventricular response. BP at times relatively low and has been on Midodrine. Metoprolol was discontinued. Increase Digoxin to 0.25mg daily for 4-5 days and check digoxin level at that time. Continue dilt at this time. Continue Eliquis for stroke prevention. May lower midodrine dose to 5 mg BID. We will follow with you.
--- NOTE | 2017-07-03 16:00 | PN ---
Progress Note, Physician History of Present Illness: doing well wound continues to heal - Current Medication List Current Medications: Active Medications Acetaminophen (Tylenol -) 650 mg PO Q6H PRN PRN Reason: PAIN LEVEL 1-5 Amino Acids (Prosource No Carb Liquid Pkt) 30 ml PO BID@0800,1730 [facility] Last Admin: 07/03/17 09:00 Dose: 30 ml Apixaban (Eliquis -) 5 mg PO BID [facility] Last Admin: 07/03/17 10:09 Dose: 5 mg Artificial Tears (Artificial Tears) 1 drop OU TID [facility] Last Admin: 07/03/17 14:57 Dose: 1 drop Ascorbic Acid (Vitamin C -) 500 mg PO DAILY [facility] Last Admin: 07/03/17 10:09 Dose: 500 mg Budesonide/Formoterol Fumarate (Symbicort 80/4.5mcg -) 2 puff IH BID [facility] Last Admin: 07/03/17 11:00 Dose: 2 puff Collagenase (Santyl -) 1 applic TP DAILY [facility] Last Admin: 07/03/17 11:03 Dose: Not Given Digoxin (Lanoxin -) 0.125 mg PO DAILY [facility] Diltiazem HCl (Cardizem -) 30 mg PO BID [facility] Last Admin: 07/03/17 11:03 Dose: 30 mg Docusate Sodium (Colace -) 100 mg PO DAILY [facility] Last Admin: 07/03/17 10:09 Dose: 100 mg Ertapenem 1 gm/ Sodium (Chloride) 100 mls @ 200 mls/hr IVPB DAILY [facility] PRN Reason: Protocol Last Admin: 07/03/17 10:08 Dose: 200 mls/hr Vancomycin HCl 750 mg/ (Dextrose) 250 mls @ 250 mls/hr IVPB Q24H [facility] PRN Reason: Protocol Last Admin: 07/03/17 15:01 Dose: 250 mls/hr Insulin Aspart (Novolog Vial Sliding Scale -) 1 vial SQ ACHS [facility] PRN Reason: Protocol Last Admin: 07/03/17 11:07 Dose: 2 units Insulin Detemir (Levemir Vial) 15 units SQ AM [facility] Last Admin: 07/03/17 06:29 Dose: 15 unit Lactobacillus Acidophilus (Bacid -) 1 tab PO DAILY [facility] Last Admin: 07/03/17 10:09 Dose: 1 tab Midodrine (Proamatine -) 7.5 mg PO TID-MID [facility] Last Admin: 07/03/17 15:35 Dose: 7.5 mg Ondansetron HCl (Zofran Injection) 4 mg IVPB Q6H PRN PRN Reason: NAUSEA Oxycodone HCl (Roxicodone -) 5 mg PO Q6H PRN PRN Reason: PAIN LEVEL 7 - 10 Last Admin: 07/02/17 20:06 Dose: 5 mg Pantoprazole Sodium (Protonix -) 40 mg PO DAILY [facility] Last Admin: 07/03/17 10:09 Dose: 40 mg Tramadol HCl (Ultram -) 50 mg PO Q6H PRN PRN Reason: PAIN LEVEL 4 - 6 Last Admin: 07/03/17 11:01 Dose: 50 mg - Objective Vital Signs: Vital Signs Temperature 97.7 F 07/03/17 14:00 Pulse Rate 103 H 07/03/17 14:00 Respiratory Rate 22 07/03/17 09:00 Blood Pressure 105/81 07/03/17 14:00 O2 Sat by Pulse Oximetry (%) 95 07/03/17 09:00 Constitutional: Yes: No Distress, Calm, Obese Cardiovascular: Yes: Pulse Irregular Respiratory: Yes: Regular, CTA Bilaterally Gastrointestinal: Yes: Normal Bowel Sounds, Soft Musculoskeletal: Yes: WNL Extremities: Yes: Other Wound/Incision: Yes: Dressing Dry and Intact Neurological: Yes: Alert, Oriented Psychiatric: Yes: Alert Labs: CBC, BMP 07/02/17 06:05 07/02/17 07:00 INR, PTT INR 1.16 (0.82-1.09) H 06/18/17 20:30 Assessment/Plan Problem List - Problems (1) Hyperkalemia Code(s): E87.5 - HYPERKALEMIA (2) Ulcers of both lower extremities Code(s): L97.919 - NON-PRS CHRONIC ULC UNSP PRT OF R LOW LEG W UNSP SEVERITY; L97.929 - NON-PRS CHRONIC ULC UNSP PRT OF L LOW LEG W UNSP SEVERITY Qualifiers: Non-pressure ulcer stage: unspecified non-pressure ulcer stage Qualified Code(s): L97.919 - Non-pressure chronic ulcer of unspecified part of right lower leg with unspecified severity; L97.929 - Non-pressure chronic ulcer of unspecified part of left lower leg with unspecified severity; L97.929 - Non- pressure chronic ulcer of unspecified part of left lower leg with unspecified severity; L97.929 - Non-pressure chronic ulcer of unspecified part of left lower leg with unspecified severity; L97.929 - Non-pressure chronic ulcer of unspecified part of left lower leg with unspecified severity (3) Unable to ambulate Code(s): R26.2 - DIFFICULTY IN WALKING, NOT ELSEWHERE CLASSIFIED (4) NOVA (acute kidney injury) Code(s): N17.9 - ACUTE KIDNEY FAILURE, UNSPECIFIED (5) Acute renal failure Code(s): N17.9 - ACUTE KIDNEY FAILURE, UNSPECIFIED (6) Afib Code(s): I48.91 - UNSPECIFIED ATRIAL FIBRILLATION sepsis leukocytosis electrolyte abn vanco trough noted plan' will check wounds tomorrow patient will complete abx course tomorrow wound care rest as per primary team
[2017-07-03] MEDS: oxyCODONE HCL 5 MG TABLET PO PRN (17:47)
[2017-07-04] MEDS: traMADol HCL 50 MG TABLET PO PRN (06:23)
[2017-07-04] MEDS: ARTIFICIAL TEARS (POLYVINYL ALCOHOL 1.4%) OPTH DROPS OU SCH ×2 (06:23→15:00)
[2017-07-04] MEDS: INSULIN DETEMIR 100 UNITS/ML MDV SQ SCH (06:24)
[2017-07-04] MEDS: INSULIN SLIDING SCALE (NOVOLOG) 1 VIAL SQ SCH ×3 (06:26→16:36)
[2017-07-04] MEDS ORDERED: PT OWN MED DRAWER 7, Y5N ONE (08:03)
[2017-07-04 08:48] LABS: CHLORIDE 108 mmol/L (98-107); POTASSIUM 4.1 mmol/L (3.5-5.1); SODIUM 141 mmol/L (136-145)
--- NOTE | 2017-07-04 08:53 | DS ---
Physical Examination Vital Signs: Vital Signs Temperature 98.4 F 07/04/17 05:10 Pulse Rate 97 H 07/04/17 05:10 Respiratory Rate 20 07/04/17 05:10 Blood Pressure 101/53 07/04/17 05:10 O2 Sat by Pulse Oximetry (%) 95 07/03/17 21:00 Cardiovascular: Yes: Pulse Irregular, S1, S2 Respiratory: Yes: Regular, CTA Bilaterally Gastrointestinal: Yes: Normal Bowel Sounds, Soft Edema: Yes Wound/Incision: Yes: Dressing Dry and Intact Labs: CBC, BMP 07/02/17 06:05 07/04/17 05:23 Discharge Summary Reason For Visit: VENOUS STASIS OF BOTH LOWER EXTREMITIES Current Active Problems Altered mental status (Acute) Electrolyte abnormality (Acute) Hyperkalemia (Acute) Renal failure (ARF), acute on chronic (Acute) Ulcers of both lower extremities (Acute) Unable to ambulate (Acute) Venous stasis (Acute) Hospital Course: 52yow PMHx of morbid obesity , DM, afib on eliquis and cardizem, gastritis, chronic lower ext venous stasis ulcers, with cellulitis who was brought in by brother with altered mental status. As per report pt was lost to follow up in wound clinic (Dr. Calderon)for 4 months. Her brother also reported progressive weakness and recent falls over past week. In the ED she was somnolent, T97.3F, HR 90, RR 18, BP 106/90, 100% O2 sat. On exam BLE with malodorus ulcers with cellulitis. Labs notable for K 8.4, WBC 26.7 , BUN/Creat 134/5.6, Na 121,HCO3 9, H/H 12.7/40. Medically treated hyperK with insulin, D50, kayexalate, saline, bicarb, albuterol nebs and calcium gluconate. Started aztreonam and vancomycin empirically and morphine for pain. Nephrology was consulted. A Rt fem trialysis cath was inserted. CXR notable for right lung infiltrates. She was transferred to ICU for emergent dialysis and further management. - History Source History Provided By: Family Member, Medical Record Limitations to Obtaining History: Unresponsive - Past Medical History Cardio/Vascular: Yes: AFIB Pulmonary: Yes: Asthma Gastrointestinal: Yes: Other (gallstones) Renal/: Yes: Renal Inusuff Infectious Disease: Yes: Other (LE cellulitis) Psych: Yes: Bipolar Endocrine: Yes: Diabetes Mellitus Dermatology: Yes: Cellulitis (b/l LE with ulcerations) - Problems (1) Electrolyte abnormality Assessment/Plan: K and Mag repleted will recheck Code(s): E87.8 - OTH DISORDERS OF ELECTROLYTE AND FLUID BALANCE, NEC (2) Leukocytosis Assessment/Plan: ID on board on iv abx-meropenem culture sent Microbiology 06/22/17 01:00 Blood - Central Line Blood Culture - Preliminary NO GROWTH OBTAINED AFTER 48 HOURS, INCUBATION TO CONTINUE FOR 3 DAYS. 06/22/17 00:30 Blood - Central Line Blood Culture - Preliminary NO GROWTH OBTAINED AFTER 48 HOURS, INCUBATION TO CONTINUE FOR 3 DAYS. wbc trending down Code(s): D72.829 - ELEVATED WHITE BLOOD CELL COUNT, UNSPECIFIED (3) Ulcers of both lower extremities Assessment/Plan: seen by vascular s/p debridement wound care per vascular ABX PER ID Code(s): L97.919 - NON-PRS CHRONIC ULC UNSP PRT OF R LOW LEG W UNSP SEVERITY; L97.929 - NON-PRS CHRONIC ULC UNSP PRT OF L LOW LEG W UNSP SEVERITY Qualifiers: Non-pressure ulcer stage: unspecified non-pressure ulcer stage Qualified Code(s): L97.919 - Non-pressure chronic ulcer of unspecified part of right lower leg with unspecified severity; L97.929 - Non-pressure chronic ulcer of unspecified part of left lower leg with unspecified severity; L97.929 - Non- pressure chronic ulcer of unspecified part of left lower leg with unspecified severity; L97.929 - Non-pressure chronic ulcer of unspecified part of left lower leg with unspecified severity; L97.929 - Non-pressure chronic ulcer of unspecified part of left lower leg with unspecified severity (4) Hyperkalemia Assessment/Plan: improved-resolved Code(s): E87.5 - HYPERKALEMIA (5) NOVA (acute kidney injury) Assessment/Plan: resolved making urine no more HD need bun/cr much improved and now normal Code(s): N17.9 - ACUTE KIDNEY FAILURE, UNSPECIFIED (6) Afib Assessment/Plan: on eliquis bid rate high--per cardio dc metoprolol and add dig Code(s): I48.91 - UNSPECIFIED ATRIAL FIBRILLATION (7) DM2 (diabetes mellitus, type 2) Assessment/Plan: dc night time levemir given the low bgm in AM decrease AM levemir to 20 units Code(s): E11.9 - TYPE 2 DIABETES MELLITUS WITHOUT COMPLICATIONS Qualifiers: Diabetes mellitus complication detail: with other circulatory complications Condition: Fair - Instructions Referrals: Onur Maxwell MD [Primary Care Provider] - - Home Medications Comprehensive Discharge Medication List: Ambulatory Orders Budesonide/Formeterol Fumarate [SYMBICORT 80/4.5mcg -] 2 puff IH BID inhaler Insulin Sliding Scale [Novolog Vial Sliding Scale -] 1 vial SQ ACHS units 02/20 Acetaminophen [Tylenol .Regular Strength -] 650 mg PO Q6H PRN tablet 07/04/17 Amino Acids/Protein Hydrolys [Prosource No Carb Liquid Pkt] 30 ml PO BID@0800, 1730 packet 07/04/17 Apixaban [Eliquis -] 5 mg PO BID tablet 07/04/17 Ascorbic Acid [Vitamin C -] 500 mg PO DAILY tablet 07/04/17 Collagenase Clostridium Hist. [Santyl -] 1 applic TP DAILY tube 07/04/17 Digoxin [Lanoxin -] 0.125 mg PO DAILY tablet 07/04/17 Diltiazem [Cardizem -] 30 mg PO BID tablet 07/04/17 Docusate Sodium [Colace -] 100 mg PO DAILY capsule 07/04/17 Ertapenem Sodium [Invanz -] 1 gm IVPB DAILY vial 07/04/17 Insulin (Levemir) [Levemir Vial] 15 units SQ AM ml 07/04/17 Insulin Sliding Scale [Novolog Vial Sliding Scale -] 1 vial SQ ACHS units 07/04 Lactobacillus Acidophilus [Bacid -] 1 tab PO DAILY tab 07/04/17 Metoprolol Tartrate [Lopressor -] 25 mg PO DAILY tablet 07/04/17 Midodrine HCl [Proamatine -] 7.5 mg PO TID-MID tablet 07/04/17 Pantoprazole Sodium [Protonix -] 40 mg PO DAILY tablet.ec 07/04/17 Polyvinyl Alcohol [Artificial Tears] 1 drop OU TID drops 07/04/17 Vancomycin 750 mg IVPB Q24H vial 07/04/17 oxyCODONE HCL [Roxicodone -] 5 mg PO Q6H PRN tablet MDD 4 07/04/17
[2017-07-04 09:06] LABS: ANION GAP 8 (8-16); BLOOD UREA NITROGEN 21 mg/dL (7-18); CALCIUM 7.8 mg/dL (8.5-10.1); CO2 25 mmol/L (21-32); CREATININE 0.8 mg/dL (0.55-1.02); GLUCOSE,RANDOM 91 mg/dL (74-106)
[2017-07-04] MEDS: ASCORBIC ACID 500 MG TABLET (FP) PO SCH (09:22)
[2017-07-04] MEDS: AMINO ACIDS/PROTEIN HYDROLYS 30 ML LIQUID.PKT PO SCH ×2 (09:22→18:12)
[2017-07-04] MEDS: LACTOBACILLUS ACIDOPHILUS 1 EACH TAB (FP) PO SCH (09:22)
[2017-07-04] MEDS: dilTIAZem HCL 30 MG TABLET (FP) PO SCH (09:22)
[2017-07-04] MEDS: APIXABAN 5 MG TABLET PO SCH (09:23)
[2017-07-04] MEDS: PANTOPRAZOLE 40 MG TABLET (FP) PO SCH (09:23)
[2017-07-04] MEDS: DOCUSATE SODIUM 100 MG CAPSULE (FP) PO SCH (09:23)
[2017-07-04] MEDS: MIDODRINE HCL 5 MG TABLET PO SCH ×2 (09:23→15:00)
[2017-07-04] MEDS: BUDESONIDE/FORMETEROL FUMARATE 80/4.5 mcg INHALER IH SCH (09:24)
[2017-07-04] MEDS ORDERED: DIGOXIN 0.125 MG TABLET (FP) PO SCH (10:00)
[2017-07-04] MEDS: ERTAPENEM SODIUM 1 GM in SODIUM CHLORIDE 100 ML IVPB SCH (11:51)
[2017-07-04] MEDS: COLLAGENASE CLOSTRIDIUM HIST. 30 GRAMS TUBE TP SCH (12:58)
--- NOTE | 2017-07-04 13:03 | PN ---
Progress Note, Physician - Current Medication List Current Medications: Active Medications Acetaminophen (Tylenol -) 650 mg PO Q6H PRN PRN Reason: PAIN LEVEL 1-5 Amino Acids (Prosource No Carb Liquid Pkt) 30 ml PO BID@0800,1730 [facility] Last Admin: 07/04/17 09:22 Dose: 30 ml Apixaban (Eliquis -) 5 mg PO BID [facility] Last Admin: 07/04/17 09:23 Dose: 5 mg Artificial Tears (Artificial Tears) 1 drop OU TID [facility] Last Admin: 07/04/17 06:23 Dose: 1 drop Ascorbic Acid (Vitamin C -) 500 mg PO DAILY [facility] Last Admin: 07/04/17 09:22 Dose: 500 mg Budesonide/Formoterol Fumarate (Symbicort 80/4.5mcg -) 2 puff IH BID [facility] Last Admin: 07/04/17 09:24 Dose: 2 puff Collagenase (Santyl -) 1 applic TP DAILY [facility] Last Admin: 07/04/17 12:58 Dose: Not Given Digoxin (Lanoxin -) 0.125 mg PO DAILY [facility] Last Admin: 07/04/17 09:22 Dose: 0.125 mg Diltiazem HCl (Cardizem -) 30 mg PO BID [facility] Last Admin: 07/04/17 09:22 Dose: 30 mg Docusate Sodium (Colace -) 100 mg PO DAILY [facility] Last Admin: 07/04/17 09:23 Dose: 100 mg Ertapenem 1 gm/ Sodium (Chloride) 100 mls @ 200 mls/hr IVPB DAILY [facility] PRN Reason: Protocol Last Admin: 07/04/17 11:51 Dose: 200 mls/hr Vancomycin HCl 750 mg/ (Dextrose) 250 mls @ 250 mls/hr IVPB Q24H [facility] PRN Reason: Protocol Last Admin: 07/03/17 15:01 Dose: 250 mls/hr Insulin Aspart (Novolog Vial Sliding Scale -) 1 vial SQ ACHS [facility] PRN Reason: Protocol Last Admin: 07/04/17 11:53 Dose: Not Given Insulin Detemir (Levemir Vial) 15 units SQ AM [facility] Last Admin: 07/04/17 06:24 Dose: 15 unit Lactobacillus Acidophilus (Bacid -) 1 tab PO DAILY [facility] Last Admin: 07/04/17 09:22 Dose: 1 tab Midodrine (Proamatine -) 7.5 mg PO TID-MID [facility] Last Admin: 07/04/17 09:23 Dose: 7.5 mg Ondansetron HCl (Zofran Injection) 4 mg IVPB Q6H PRN PRN Reason: NAUSEA Oxycodone HCl (Roxicodone -) 5 mg PO Q6H PRN PRN Reason: PAIN LEVEL 7 - 10 Last Admin: 07/03/17 17:47 Dose: 5 mg Pantoprazole Sodium (Protonix -) 40 mg PO DAILY [facility] Last Admin: 07/04/17 09:23 Dose: 40 mg Tramadol HCl (Ultram -) 50 mg PO Q6H PRN PRN Reason: PAIN LEVEL 4 - 6 Last Admin: 07/04/17 06:23 Dose: 50 mg - Objective Vital Signs: Vital Signs Temperature 98.4 F 07/04/17 05:10 Pulse Rate 95 H 07/04/17 09:22 Respiratory Rate 20 07/04/17 05:10 Blood Pressure 101/53 07/04/17 05:10 O2 Sat by Pulse Oximetry (%) 97 07/04/17 09:00 Labs: CBC, BMP 07/02/17 06:05 07/04/17 05:23 INR, PTT INR 1.16 (0.82-1.09) H 06/18/17 20:30
--- NOTE | 2017-07-04 13:17 | PN ---
Progress Note, Physician History of Present Illness: doing well according to wound changes wounds and legs are looking good patient has received abx legs are doing well - Current Medication List Current Medications: Active Medications Acetaminophen (Tylenol -) 650 mg PO Q6H PRN PRN Reason: PAIN LEVEL 1-5 Amino Acids (Prosource No Carb Liquid Pkt) 30 ml PO BID@0800,1730 [facility] Last Admin: 07/04/17 09:22 Dose: 30 ml Apixaban (Eliquis -) 5 mg PO BID [facility] Last Admin: 07/04/17 09:23 Dose: 5 mg Artificial Tears (Artificial Tears) 1 drop OU TID [facility] Last Admin: 07/04/17 06:23 Dose: 1 drop Ascorbic Acid (Vitamin C -) 500 mg PO DAILY [facility] Last Admin: 07/04/17 09:22 Dose: 500 mg Budesonide/Formoterol Fumarate (Symbicort 80/4.5mcg -) 2 puff IH BID [facility] Last Admin: 07/04/17 09:24 Dose: 2 puff Collagenase (Santyl -) 1 applic TP DAILY [facility] Last Admin: 07/04/17 12:58 Dose: Not Given Digoxin (Lanoxin -) 0.125 mg PO DAILY [facility] Last Admin: 07/04/17 09:22 Dose: 0.125 mg Diltiazem HCl (Cardizem -) 30 mg PO BID [facility] Last Admin: 07/04/17 09:22 Dose: 30 mg Docusate Sodium (Colace -) 100 mg PO DAILY [facility] Last Admin: 07/04/17 09:23 Dose: 100 mg Ertapenem 1 gm/ Sodium (Chloride) 100 mls @ 200 mls/hr IVPB DAILY [facility] PRN Reason: Protocol Last Admin: 07/04/17 11:51 Dose: 200 mls/hr Vancomycin HCl 750 mg/ (Dextrose) 250 mls @ 250 mls/hr IVPB Q24H [facility] PRN Reason: Protocol Last Admin: 07/03/17 15:01 Dose: 250 mls/hr Insulin Aspart (Novolog Vial Sliding Scale -) 1 vial SQ ACHS [facility] PRN Reason: Protocol Last Admin: 07/04/17 11:53 Dose: Not Given Insulin Detemir (Levemir Vial) 15 units SQ AM [facility] Last Admin: 07/04/17 06:24 Dose: 15 unit Lactobacillus Acidophilus (Bacid -) 1 tab PO DAILY [facility] Last Admin: 07/04/17 09:22 Dose: 1 tab Midodrine (Proamatine -) 7.5 mg PO TID-MID [facility] Last Admin: 07/04/17 09:23 Dose: 7.5 mg Ondansetron HCl (Zofran Injection) 4 mg IVPB Q6H PRN PRN Reason: NAUSEA Oxycodone HCl (Roxicodone -) 5 mg PO Q6H PRN PRN Reason: PAIN LEVEL 7 - 10 Last Admin: 07/03/17 17:47 Dose: 5 mg Pantoprazole Sodium (Protonix -) 40 mg PO DAILY [facility] Last Admin: 07/04/17 09:23 Dose: 40 mg Tramadol HCl (Ultram -) 50 mg PO Q6H PRN PRN Reason: PAIN LEVEL 4 - 6 Last Admin: 07/04/17 06:23 Dose: 50 mg - Objective Vital Signs: Vital Signs Temperature 98.4 F 07/04/17 05:10 Pulse Rate 95 H 07/04/17 09:22 Respiratory Rate 20 07/04/17 05:10 Blood Pressure 101/53 07/04/17 05:10 O2 Sat by Pulse Oximetry (%) 97 07/04/17 09:00 Constitutional: Yes: No Distress, Calm, Obese Cardiovascular: Yes: S1, S2 Respiratory: Yes: Regular, CTA Bilaterally Musculoskeletal: Yes: WNL Extremities: Yes: Other Wound/Incision: Yes: Dressing Dry and Intact Neurological: Yes: Alert, Oriented Psychiatric: Yes: Alert, Oriented Labs: CBC, BMP 07/02/17 06:05 07/04/17 05:23 INR, PTT INR 1.16 (0.82-1.09) H 06/18/17 20:30 Assessment/Plan Problem List - Problems (1) Hyperkalemia Code(s): E87.5 - HYPERKALEMIA (2) Ulcers of both lower extremities Code(s): L97.919 - NON-PRS CHRONIC ULC UNSP PRT OF R LOW LEG W UNSP SEVERITY; L97.929 - NON-PRS CHRONIC ULC UNSP PRT OF L LOW LEG W UNSP SEVERITY Qualifiers: Non-pressure ulcer stage: unspecified non-pressure ulcer stage Qualified Code(s): L97.919 - Non-pressure chronic ulcer of unspecified part of right lower leg with unspecified severity; L97.929 - Non-pressure chronic ulcer of unspecified part of left lower leg with unspecified severity; L97.929 - Non- pressure chronic ulcer of unspecified part of left lower leg with unspecified severity; L97.929 - Non-pressure chronic ulcer of unspecified part of left lower leg with unspecified severity; L97.929 - Non-pressure chronic ulcer of unspecified part of left lower leg with unspecified severity (3) Unable to ambulate Code(s): R26.2 - DIFFICULTY IN WALKING, NOT ELSEWHERE CLASSIFIED (4) NOVA (acute kidney injury) Code(s): N17.9 - ACUTE KIDNEY FAILURE, UNSPECIFIED (5) Acute renal failure Code(s): N17.9 - ACUTE KIDNEY FAILURE, UNSPECIFIED (6) Afib Code(s): I48.91 - UNSPECIFIED ATRIAL FIBRILLATION sepsis leukocytosis electrolyte abn vanco trough noted plan' will stop all abx now patient will need wound care sugar control rest as per primary
--- NOTE | 2017-07-04 16:38 | PN ---
Progress Note, Physician History of Present Illness: Pt seen and examined at bedside. She is awake and alert. She denies shortness of breath. - Current Medication List Current Medications: Active Medications Acetaminophen (Tylenol -) 650 mg PO Q6H PRN PRN Reason: PAIN LEVEL 1-5 Amino Acids (Prosource No Carb Liquid Pkt) 30 ml PO BID@0800,1730 [facility] Last Admin: 07/04/17 09:22 Dose: 30 ml Apixaban (Eliquis -) 5 mg PO BID [facility] Last Admin: 07/04/17 09:23 Dose: 5 mg Artificial Tears (Artificial Tears) 1 drop OU TID [facility] Last Admin: 07/04/17 06:23 Dose: 1 drop Ascorbic Acid (Vitamin C -) 500 mg PO DAILY [facility] Last Admin: 07/04/17 09:22 Dose: 500 mg Budesonide/Formoterol Fumarate (Symbicort 80/4.5mcg -) 2 puff IH BID [facility] Last Admin: 07/04/17 09:24 Dose: 2 puff Collagenase (Santyl -) 1 applic TP DAILY [facility] Last Admin: 07/04/17 12:58 Dose: Not Given Digoxin (Lanoxin -) 0.125 mg PO DAILY [facility] Last Admin: 07/04/17 09:22 Dose: 0.125 mg Diltiazem HCl (Cardizem -) 30 mg PO BID [facility] Last Admin: 07/04/17 09:22 Dose: 30 mg Docusate Sodium (Colace -) 100 mg PO DAILY [facility] Last Admin: 07/04/17 09:23 Dose: 100 mg Insulin Aspart (Novolog Vial Sliding Scale -) 1 vial SQ ACHS [facility] PRN Reason: Protocol Last Admin: 07/04/17 11:53 Dose: Not Given Insulin Detemir (Levemir Vial) 15 units SQ AM [facility] Last Admin: 07/04/17 06:24 Dose: 15 unit Lactobacillus Acidophilus (Bacid -) 1 tab PO DAILY [facility] Last Admin: 07/04/17 09:22 Dose: 1 tab Midodrine (Proamatine -) 7.5 mg PO TID-MID [facility] Last Admin: 07/04/17 09:23 Dose: 7.5 mg Ondansetron HCl (Zofran Injection) 4 mg IVPB Q6H PRN PRN Reason: NAUSEA Pantoprazole Sodium (Protonix -) 40 mg PO DAILY [facility] Last Admin: 07/04/17 09:23 Dose: 40 mg Tramadol HCl (Ultram -) 50 mg PO Q6H PRN PRN Reason: PAIN LEVEL 4 - 6 Last Admin: 07/04/17 06:23 Dose: 50 mg - Objective Vital Signs: Vital Signs Temperature 98.4 F 07/04/17 05:10 Pulse Rate 95 H 07/04/17 09:22 Respiratory Rate 20 07/04/17 05:10 Blood Pressure 101/53 07/04/17 05:10 O2 Sat by Pulse Oximetry (%) 97 07/04/17 09:00 Constitutional: Yes: Calm Eyes: Yes: Conjunctiva Clear HENT: Yes: Atraumatic Cardiovascular: Yes: S1, S2 Respiratory: Yes: CTA Bilaterally Gastrointestinal: Yes: Soft, Abdomen, Obese Genitourinary: Yes: Incontinence Musculoskeletal: Yes: Muscle Weakness Edema: LLE: Trace, RLE: Trace Neurological: Yes: Oriented Psychiatric: Yes: Oriented Labs: CBC, BMP 07/02/17 06:05 07/04/17 05:23 INR, PTT INR 1.16 (0.82-1.09) H 06/18/17 20:30 Problem List - Problems (1) Hyperkalemia Code(s): E87.5 - HYPERKALEMIA (2) Ulcers of both lower extremities Code(s): L97.919 - NON-PRS CHRONIC ULC UNSP PRT OF R LOW LEG W UNSP SEVERITY; L97.929 - NON-PRS CHRONIC ULC UNSP PRT OF L LOW LEG W UNSP SEVERITY Qualifiers: Non-pressure ulcer stage: unspecified non-pressure ulcer stage Qualified Code(s): L97.919 - Non-pressure chronic ulcer of unspecified part of right lower leg with unspecified severity; L97.929 - Non-pressure chronic ulcer of unspecified part of left lower leg with unspecified severity; L97.929 - Non- pressure chronic ulcer of unspecified part of left lower leg with unspecified severity; L97.929 - Non-pressure chronic ulcer of unspecified part of left lower leg with unspecified severity; L97.929 - Non-pressure chronic ulcer of unspecified part of left lower leg with unspecified severity (3) Unable to ambulate Code(s): R26.2 - DIFFICULTY IN WALKING, NOT ELSEWHERE CLASSIFIED (4) NOVA (acute kidney injury) Code(s): N17.9 - ACUTE KIDNEY FAILURE, UNSPECIFIED (5) Acute renal failure Code(s): N17.9 - ACUTE KIDNEY FAILURE, UNSPECIFIED (6) Afib Code(s): I48.91 - UNSPECIFIED ATRIAL FIBRILLATION Assessment/Plan Current Medications Generic Name Dose Route Start Last Admin Trade Name Freq PRN Reason Stop Dose Admin Acetaminophen 650 mg 07/01/17 21:15 Tylenol - PO Q6H PRN PAIN LEVEL 1-5 Amino Acids 30 ml 07/02/17 08:00 07/04/17 09:22 Prosource No Carb Liquid Pkt PO 30 ml BID@0800,1730 [facility] Administration Apixaban 5 mg 07/01/17 22:00 07/04/17 09:23 Eliquis - PO 5 mg BID [facility] Administration Artificial Tears 1 drop 07/01/17 22:00 07/04/17 06:23 Artificial Tears OU 1 drop TID [facility] Administration Ascorbic Acid 500 mg 07/02/17 10:00 07/04/17 09:22 Vitamin C - PO 500 mg DAILY [facility] Administration Budesonide/Formoterol Fumarate 2 puff 07/01/17 22:00 07/04/17 09:24 Symbicort 80/4.5mcg - IH 2 puff BID [facility] Administration Collagenase 1 applic 07/02/17 10:00 07/04/17 12:58 Santyl - TP Not Given DAILY [facility] Digoxin 0.125 mg 07/04/17 10:00 07/04/17 09:22 Lanoxin - PO 0.125 mg DAILY [facility] Administration Diltiazem HCl 30 mg 07/01/17 22:00 07/04/17 09:22 Cardizem - PO 30 mg BID [facility] Administration Docusate Sodium 100 mg 07/02/17 10:00 07/04/17 09:23 Colace - PO 100 mg DAILY [facility] Administration Insulin Aspart 1 vial 07/01/17 22:00 07/04/17 11:53 Novolog Vial Sliding Scale - SQ Not Given ACHS [facility] Protocol Insulin Detemir 15 units 07/02/17 07:00 07/04/17 06:24 Levemir Vial SQ 15 unit AM [facility] Administration Lactobacillus Acidophilus 1 tab 07/02/17 10:00 07/04/17 09:22 Bacid - PO 1 tab DAILY [facility] Administration Midodrine 7.5 mg 07/03/17 15:15 07/04/17 09:23 Proamatine - PO 7.5 mg TID-MID [facility] Administration Ondansetron HCl 4 mg 07/01/17 21:15 Zofran Injection IVPB Q6H PRN NAUSEA Pantoprazole Sodium 40 mg 07/02/17 10:00 07/04/17 09:23 Protonix - PO 40 mg DAILY [facility] Administration Tramadol HCl 50 mg 07/01/17 21:15 07/04/17 06:23 Ultram - PO 50 mg Q6H PRN Administration PAIN LEVEL 4 - 6 Impression 1. NOVA 2. hyperkalemia resolved 3. obesity 4. DM 5. a-fib 6. HTN 7. chronic lower extremity ulcers 8. gastritis 9. sepsis 10. hyponatremia 11. hypokalemia 12. hypotension Plan - continue to monitor blood pressure - cardio input appreciated - will decrease midodrine dose - renal function is stable - cont abx - ID follow up - wound care - will follow Dr Epstein
--- NOTE | 2017-07-04 16:55 | PN ---
Progress Note, Physician Chief Complaint: Patient appears comfortable at the time exam. She has no palpitation, chest pain or SOB at rest. Tele shows persistent atrial fibrillation with controlled VR. History of Present Illness: 52 year-old obese woman admitted with sepsis, cellulitis and abcess with acute renal failure and atrial fibrillation. Renal function has normalized. BP relatively low but no orthostatic BP decline. She still has dizziness/ lightheadedness when sitting. - Current Medication List Current Medications: Active Medications Acetaminophen (Tylenol -) 650 mg PO Q6H PRN PRN Reason: PAIN LEVEL 1-5 Amino Acids (Prosource No Carb Liquid Pkt) 30 ml PO BID@0800,1730 [facility] Last Admin: 07/04/17 09:22 Dose: 30 ml Apixaban (Eliquis -) 5 mg PO BID [facility] Last Admin: 07/04/17 09:23 Dose: 5 mg Artificial Tears (Artificial Tears) 1 drop OU TID [facility] Last Admin: 07/04/17 06:23 Dose: 1 drop Ascorbic Acid (Vitamin C -) 500 mg PO DAILY [facility] Last Admin: 07/04/17 09:22 Dose: 500 mg Budesonide/Formoterol Fumarate (Symbicort 80/4.5mcg -) 2 puff IH BID [facility] Last Admin: 07/04/17 09:24 Dose: 2 puff Collagenase (Santyl -) 1 applic TP DAILY [facility] Last Admin: 07/04/17 12:58 Dose: Not Given Digoxin (Lanoxin -) 0.125 mg PO DAILY [facility] Last Admin: 07/04/17 09:22 Dose: 0.125 mg Diltiazem HCl (Cardizem -) 30 mg PO BID [facility] Last Admin: 07/04/17 09:22 Dose: 30 mg Docusate Sodium (Colace -) 100 mg PO DAILY [facility] Last Admin: 07/04/17 09:23 Dose: 100 mg Insulin Aspart (Novolog Vial Sliding Scale -) 1 vial SQ ACHS [facility] PRN Reason: Protocol Last Admin: 07/04/17 16:36 Dose: Not Given Insulin Detemir (Levemir Vial) 15 units SQ AM [facility] Last Admin: 07/04/17 06:24 Dose: 15 unit Lactobacillus Acidophilus (Bacid -) 1 tab PO DAILY [facility] Last Admin: 07/04/17 09:22 Dose: 1 tab Midodrine (Proamatine -) 5 mg PO BID-MID [facility] Ondansetron HCl (Zofran Injection) 4 mg IVPB Q6H PRN PRN Reason: NAUSEA Pantoprazole Sodium (Protonix -) 40 mg PO DAILY [facility] Last Admin: 07/04/17 09:23 Dose: 40 mg Tramadol HCl (Ultram -) 50 mg PO Q6H PRN PRN Reason: PAIN LEVEL 4 - 6 Last Admin: 07/04/17 06:23 Dose: 50 mg - Objective Vital Signs: Vital Signs Temperature 98.4 F 07/04/17 05:10 Pulse Rate 95 H 07/04/17 09:22 Respiratory Rate 20 07/04/17 05:10 Blood Pressure 101/53 07/04/17 05:10 O2 Sat by Pulse Oximetry (%) 97 07/04/17 09:00 Constitutional: Yes: Well Nourished, No Distress, Obese Eyes: Yes: Conjunctiva Clear, EOM Intact HENT: Yes: Atraumatic, Normocephalic Neck: Yes: Supple, Trachea Midline Cardiovascular: Yes: Pulse Irregular Respiratory: Yes: Regular, CTA Bilaterally Gastrointestinal: Yes: Normal Bowel Sounds, Soft, Abdomen, Obese ...Rectal Exam: Yes: Deferred Extremities: Yes: Other (Dressing intact.) Edema: Yes Edema: LLE: 1+, RLE: 1+ Labs: CBC, BMP 07/02/17 06:05 07/04/17 05:23 INR, PTT INR 1.16 (0.82-1.09) H 06/18/17 20:30 Assessment/Plan 52 year-old obese woman admitted with sepsis, cellulitis and abcess with acute renal failure and atrial fibrillation. Renal function has normalized. BP relatively low but no orthostatic BP decline. She still has dizziness/ lightheadedness when sitting. Persistent Afib with mild ventricular response. BP at times relatively low and has been on Midodrine. Metoprolol was discontinued. May increase Digoxin to 0.25mg daily for 4-5 days and decrease back to 0.125 mg daily. Check digoxin level at that time. Continue dilt at this time. Continue Eliquis for stroke prevention. Continue midodrine dose to 5 mg BID. Agree to d/c tele. Please call us for reconsult as needed.
[2017-07-04] MEDS ORDERED: MIDODRINE HCL 5 MG TABLET PO SCH (18:00)
[2017-07-04 20:29] VITALS: BP 98/68; PULSE 101; TEMP 98
== END 2017-07-04 21:15 | DRG 710 ==
LOC: JER 13:01 → JERBED 15:26 → JICU 16:55 → J4W 07-01 20:44 → J7W 07-04 14:34
PROVIDERS: ADMIT Internal Medicine; ATTEND Family Medicine
PROC: 5A09357 Assistance with Respiratory Ventilation, Less than 24 Consecutive Hours, Continuous Positive Airway Pressure (ICD-10-PCS; 2017-06-19)
PROC: 0JBP0ZZ Excision of Left Lower Leg Subcutaneous Tissue and Fascia, Open Approach (ICD-10-PCS; 2017-06-20)
PROC: 0KBS0ZZ Excision of Right Lower Leg Muscle, Open Approach (ICD-10-PCS; 2017-06-20)
PROC: 0JBN0ZX Excision of Right Lower Leg Subcutaneous Tissue and Fascia, Open Approach, Diagnostic (ICD-10-PCS; 2017-06-20)
PROC: 5A09357 Assistance with Respiratory Ventilation, Less than 24 Consecutive Hours, Continuous Positive Airway Pressure (ICD-10-PCS; 2017-06-20)
PROC: 0KBT0ZZ Excision of Left Lower Leg Muscle, Open Approach (ICD-10-PCS; principal; 2017-06-20 13:30)
PROC: 05HM33Z Insertion of Infusion Device into Right Internal Jugular Vein, Percutaneous Approach (ICD-10-PCS; 2017-06-22)
DX: A41.9 Sepsis, unspecified organism (principal); J96.01 Acute respiratory failure with hypoxia; J69.0 Pneumonitis due to inhalation of food and vomit; R65.21 Severe sepsis with septic shock; G93.41 Metabolic encephalopathy; E87.2 Acidosis; I95.9 Hypotension, unspecified; E66.01 Morbid (severe) obesity due to excess calories; Z68.41 Body mass index [BMI] 40.0-44.9, adult; L97.429 Non-pressure chronic ulcer of left heel and midfoot with unspecified severity; L97.829 Non-pressure chronic ulcer of other part of left lower leg with unspecified severity; E87.5 Hyperkalemia; R23.2 Flushing; I87.2 Venous insufficiency (chronic) (peripheral); N18.9 Chronic kidney disease, unspecified; L97.819 Non-pressure chronic ulcer of other part of right lower leg with unspecified severity; L03.116 Cellulitis of left lower limb; L03.115 Cellulitis of right lower limb; E11.22 Type 2 diabetes mellitus with diabetic chronic kidney disease; F31.9 Bipolar disorder, unspecified; J45.909 Unspecified asthma, uncomplicated; Z80.3 Family history of malignant neoplasm of breast; Z80.0 Family history of malignant neoplasm of digestive organs; G47.30 Sleep apnea, unspecified; N17.9 Acute kidney failure, unspecified; E11.65 Type 2 diabetes mellitus with hyperglycemia; I48.0 Paroxysmal atrial fibrillation; E11.622 Type 2 diabetes mellitus with other skin ulcer; E87.8 Other disorders of electrolyte and fluid balance, not elsewhere classified; Z79.4 Long term (current) use of insulin
CPT/HCPCS: 36415; 36600; 71045-TC; 73610-TC-LT-FY; 73610-TC-RT-FY; 73630-TC-LT; 73630-TC-RT-FY; 76775-TC; 76856-TC; 80048; 80053; 81003; 81015; 82272; 82533; 82550; 82803; 82962; 83036; 83605; 83735; 83935; 84100; 84443; 84484; 85025; 85027; 85610; 85651; 85730; 86140; 86704; 86706; 86708; 86803; 86850; 86900; 86901; 87040; 87070; 87086; 87186; 87205; 87340; 93005; 93010; 93925-TC; 93970-TC; 94660; 97161-GP; 99284-25; G0480; J1644

== ENCOUNTER 2018-07-15 08:13 | Inpatient (IN) | payer OTHER ==
[2018-07-15] MEDS ORDERED: FAMOTIDINE 20 MG/50 ML IVPB 20 MG/50 ML MG IVPB ONE ×2 (08:33→09:04)
[2018-07-15] MEDS ORDERED: SODIUM CHLORIDE 1,000 ML IV STA (08:33)
[2018-07-15] MEDS ORDERED: morphine CARPU-JECT 4 MG/1 ML DISP.SYRIN IVPUSH ONE ×3 (08:33→15:46)
[2018-07-15] MEDS ORDERED: ONDANSETRON 4 MG/2 ML VIAL IVPUSH ONE (08:33)
--- NOTE | 2018-07-15 08:55 | PDOC ---
Attending Attestation - Resident Resident Name: LowellAris saldivar - ED Attending Attestation I have performed the following: I have examined & evaluated the patient, The case was reviewed & discussed with the resident, I agree w/resident's findings & plan, Exceptions are as noted - HPI HPI: 53 yo F history HTN, DM, afib (eliquis and cardizem) presents iwth 2 day history of abd pain, worse on R abdomen. She states her symptoms started after eating sausage and peppers 3 days ago, however, her brother at bedside ate the same thing and did not get sick. - Physicial Exam PE: GENERAL: Awake, alert, and fully oriented. Tearful, uncomfortable. Morbidly obese. HEAD: No signs of trauma EYES: PERRLA, EOMI, sclera anicteric, conjunctiva clear ENT: Auricles normal inspection, hearing grossly normal, nares patent, oropharynx clear without exudates. Dry mucosa NECK: Normal ROM, supple, no lymphadenopathy, JVD, or masses LUNGS: Breath sounds equal, clear to auscultation bilaterally. No wheezes, and no crackles HEART: Regular rate and rhythm, normal S1 and S2, no murmurs, rubs or gallops ABDOMEN: Soft, diffusely tender, normoactive bowel sounds. +Guarding, no rebound. No masses EXTREMITIES: 4+ pitting edema to BLE with stasis changes and weeping wounds with clear yellow fluid. Normal range of motion. No clubbing or cyanosis. No cords or tenderness NEUROLOGICAL: Cranial nerves II through XII grossly intact. Normal speech. Motor and sensation intact SKIN: Warm, Dry, normal turgor, no rashes or lesions noted. - Medical Decision Making Pt with R-sided abd pain x3 days, nausea and vomiting. Noted to have leukocytosis on labs. US negative for acute taniya, will obtain CT a/p. Will ultimately admit even if the CT is negative in light of the leukocytosis.
[2018-07-15] MEDS ORDERED: ONDANSETRON 4 MG/2 ML VIAL ONE (09:04)
[2018-07-15] MEDS ORDERED: morphine SULFATE 4 MG/ML VIAL ONE ×3 (09:04→15:49)
[2018-07-15 09:08] LABS: BASO % 0.3 % (0-2.0); EOS % 0.1 % (0-4.5); HEMATOCRIT 38.5 % (32.4-45.2); HEMOGLOBIN 13.1 GM/dL (10.7-15.3); LYMPH % 4.9 % (8-40); MCH 29.1 pg (25.7-33.7); MCHC 33.9 g/dl (32.0-36.0); MEAN CELL VOLUME 85.8 fl (80-96); MEAN PLT VOLUME 10.2 fl (7.5-11.1); MONO % 3.8 % (3.8-10.2); NEUT % 90.9 % (42.8-82.8); PLATELET COUNT 277 K/MM3 (134-434); RBC 4.49 M/mm3 (3.60-5.2); RDW 16.2 % (11.6-15.6); WHITE BLOOD COUNT 21.1 K/mm3 (4.0-10.0)
[2018-07-15] MEDS ORDERED: dilTIAZem HCL 50 MG/10 ML - 10 ML VIAL IVPUSH ONE ×2 (09:12→15:31)
--- NOTE | 2018-07-15 09:12 | PDOC ---
History of Present Illness - General Chief Complaint: Pain, Acute Stated Complaint: FOOD POISON Time Seen by Provider: 07/15/18 08:26 History Source: Patient Exam Limitations: No Limitations - History of Present Illness Initial Comments: 07/15/18 10:04 Patient is a 53F with history of HTN, DM, afib (on eliquis and cardizem) here today complaining of 2 days of abdominal pain, located worse on the right side of her abdomen. Endorses associated nausea and multiple episodes of vomiting. Patient attributes her symptoms to sausage that she ate because the pain started right after eating it. Her brother had the same sausage and was not affected. Denies dysuria, diarrhea, constipation. Denies chest pain and shortness of breath. Past History - Past Medical History Allergies/Adverse Reactions: Allergies Allergy/AdvReac Type Severity Reaction Status Date / Time nut - unspecified Allergy Verified 07/15/18 08:18 Penicillins Allergy Verified 07/15/18 08:18 walnut Allergy Verified 07/15/18 08:18 Home Medications: Ambulatory Orders Budesonide/Formeterol Fumarate [SYMBICORT 80/4.5mcg -] 2 puff IH BID inhaler Insulin Sliding Scale [Novolog Vial Sliding Scale -] 1 vial SQ ACHS units 02/20 Acetaminophen [Tylenol .Regular Strength -] 650 mg PO Q6H PRN tablet 07/04/17 Amino Acids/Protein Hydrolys [Prosource No Carb Liquid Pkt] 30 ml PO BID@0800, 1730 packet 07/04/17 Apixaban [Eliquis -] 5 mg PO BID tablet 07/04/17 Ascorbic Acid [Vitamin C -] 500 mg PO DAILY tablet 07/04/17 Collagenase Clostridium Hist. [Santyl -] 1 applic TP DAILY tube 07/04/17 Digoxin [Lanoxin -] 0.125 mg PO DAILY tablet 07/04/17 Diltiazem [Cardizem -] 30 mg PO BID tablet 07/04/17 Docusate Sodium [Colace -] 100 mg PO DAILY capsule 07/04/17 Ertapenem Sodium [Invanz -] 1 gm IVPB DAILY vial 07/04/17 Insulin (Levemir) [Levemir Vial] 15 units SQ AM ml 07/04/17 Insulin Sliding Scale [Novolog Vial Sliding Scale -] 1 vial SQ ACHS units 07/04 Lactobacillus Acidophilus [Bacid -] 1 tab PO DAILY tab 07/04/17 Metoprolol Tartrate [Lopressor -] 25 mg PO DAILY tablet 07/04/17 Midodrine HCl [Proamatine -] 7.5 mg PO TID-MID tablet 07/04/17 Pantoprazole Sodium [Protonix -] 40 mg PO DAILY tablet.ec 07/04/17 Polyvinyl Alcohol [Artificial Tears] 1 drop OU TID drops 07/04/17 Vancomycin 750 mg IVPB Q24H vial 07/04/17 oxyCODONE HCL [Roxicodone -] 5 mg PO Q6H PRN tablet MDD 4 07/04/17 Anemia: No Asthma: No Cardiac Disorders: Yes (AF, PVD) COPD: No DVT: No Diabetes: Yes (on insulin) GI Disorders: (Yes; gastritis) Other medical history: cardiac - Suicide/Smoking/Psychosocial Hx Smoking History: Unknown if ever smoked Have you smoked in the past 12 months: No Number of Cigarettes Smoked Daily: 0 Hx Alcohol Use: No Drug/Substance Use Hx: No Substance Use Type: None Hx Substance Use Treatment: No Review of Systems - Review of Systems Comments:: 07/15/18 10:16 GENERAL/CONSTITUTIONAL: No fever or chills. No weakness. HEAD, EYES, EARS, NOSE AND THROAT: No change in vision. No ear pain or discharge. No sore throat. CARDIOVASCULAR: No chest pain or shortness of breath RESPIRATORY: No cough, wheezing, or hemoptysis. GASTROINTESTINAL: No nausea, +vomiting, no diarrhea or constipation. GENITOURINARY: No dysuria, frequency, or change in urination. MUSCULOSKELETAL: No joint or muscle swelling or pain. No neck or back pain. SKIN: No rash NEUROLOGIC: No headache, vertigo, loss of consciousness, or change in strength/ sensation. ALLERGIC/IMMUNOLOGIC: No hives or skin allergy. *Physical Exam - Vital Signs Last Vital Signs Temp Pulse Resp BP Pulse Ox 98 F 103 H 16 132/82 100 07/15/18 08:21 07/15/18 08:21 07/15/18 08:21 07/15/18 08:21 07/15/18 08:21 - Physical Exam Comments: 07/15/18 10:17 GENERAL: Awake, alert, and fully oriented, HEAD: No signs of trauma, normocephalic, atraumatic EYES: PERRLA, EOMI, sclera anicteric, conjunctiva clear ENT: Auricles normal inspection, hearing grossly normal, nares patent, oropharynx clear without exudates. Moist mucosa NECK: Normal ROM, supple, no lymphadenopathy, JVD, or masses LUNGS: No distress, speaks full sentences, clear to auscultation bilaterally HEART: Regular rate and rhythm, normal S1 and S2, no murmurs, rubs or gallops, peripheral pulses normal and equal bilaterally. ABDOMEN: Diffusely tender, worse in RUQ. +voluntary guarding, no rebound. No masses EXTREMITIES: Edematous lower extremities with weeping from chronic wounds. No clubbing or cyanosis. NEUROLOGICAL: Cranial nerves II through XII grossly intact. Normal speech, no focal sensorimotor deficits SKIN: Warm, Dry, normal turgor, no rashes or lesions noted. Moderate Sedation - Procedure Monitoring Vital Signs: Procedure Monitoring Vital Signs Temperature 98 F 07/15/18 08:21 Pulse Rate 103 H 07/15/18 08:21 Respiratory Rate 16 07/15/18 08:21 Blood Pressure 132/82 07/15/18 08:21 O2 Sat by Pulse Oximetry (%) 100 07/15/18 08:21 ED Treatment Course - LABORATORY CBC & Chemistry Diagram: 07/15/18 08:50 07/15/18 08:33 - RADIOLOGY Radiology Studies Ordered: Category Date Time Status ABDOMEN & PELVIS CT WITH CONTR [CT] Stat CT Scan 07/15/18 08:34 Ordered Medical Decision Making - Medical Decision Making 07/15/18 10:17 Patient is 53F with history of htn, dm, afib here today with RUQ abdominal pain. Vitals notable for tachycardia. DDx includes, but is not limited to: cholecystitis, biliary colic, appendicitis. Given morphine 4mgx2, fluids. Will evaluate with abdominal labs, us. EKG shows afib with RVR, rate of 128. No st elevations/depressions. Normal axis. Normal intervals. No significant t wave abnormalities. HR resolved on own with pain medication administration. Last HR in 80s. 07/15/18 10:19 Trop neg, WBC 20, Cr 1.4. Pending US. 07/15/18 14:28 D/w Dr Dean, will pre-op. Dr De Leon consulted for abx coverage given patient's report of multiple drug allergies and patient's reported prior contact with Dr Haley Maxwell consulted for admission, states his SPRAY TECHNICIAN will see patient. *DC/Admit/Observation/Transfer Diagnosis at time of Disposition: Appendicitis - Discharge Dispostion Disposition: HOME Condition at time of disposition: Good Decision to Admit order: Yes - Referrals Referrals: Onur Maxwell MD [Primary Care Provider] - - Patient Instructions - Post Discharge Activity
[2018-07-15 09:33] LABS: ALBUMIN 2.9 g/dl (3.4-5.0); ALK PHOS 187 U/L (45-117); ANION GAP 8 MMOL/L (8-16); BILIRUBIN,TOTAL 0.4 mg/dL (0.2-1); BLOOD UREA NITROGEN 36 mg/dL (7-18); CALCIUM 8.9 mg/dL (8.5-10.1); CHLORIDE 106 mmol/L (98-107); CO2 20 mmol/L (21-32); CREATININE 1.4 mg/dL (0.55-1.3); GLUCOSE,RANDOM 299 mg/dL (74-106); LIPASE 102 U/L (73-393); POTASSIUM 4.8 mmol/L (3.5-5.1); SGOT/AST 16 U/L (15-37); SGPT/ALT 39 U/L (13-61); SODIUM 133 mmol/L (136-145); TOT PROT 7.4 g/dl (6.4-8.2)
--- NOTE | 2018-07-15 11:04 | EKG ---
Test Reason : Blood Pressure : / mmHG Vent. Rate : 128 BPM Atrial Rate : 300 BPM P-R Int : 000 ms QRS Dur : 080 ms QT Int : 298 ms P-R-T Axes : 000 007 005 degrees QTc Int : 435 ms ATRIAL FIBRILLATION WITH RAPID VENTRICULAR RESPONSE LOW VOLTAGE QRS ABNORMAL ECG WHEN COMPARED WITH ECG OF 23-JUN-2017 19:34, NO SIGNIFICANT CHANGE WAS FOUND Confirmed by MD TRENT, KAITLYN ([id number]) on 07/15/2018 11:03:54 AM Referred By: Confirmed By:KAITLYN NEWMAN MD
[2018-07-15 15:31] LABS: URINE APPEARANCE SLCLOUDY; URINE BILIRUBIN NEGATIVE (<2.0 mg/dL); URINE COLOR YELLOW; URINE GLUCOSE (UA) NEGATIVE (NEGATIVE); URINE KETONE NEGATIVE (NEGATIVE); URINE LEUK ESTERASE NEGATIVE (NEGATIVE); URINE NITRITE NEGATIVE (NEGATIVE); URINE PROTEIN 1+ (NEGATIVE); URINE UROBILINOGEN NEGATIVE mg/dL (0.2-1.0)
[2018-07-15 15:33] LABS: EPI CELLS RARE /HPF (FEW); URINE BACTERIA RARE /hpf (NONE SEEN); URINE MUCUS RARE
[2018-07-15] MEDS ORDERED: dilTIAZem HCL 50 MG/10 ML - 10 ML VIAL ONE (15:33)
[2018-07-15 15:50] LABS: INR 1.27 (0.83-1.09)
[2018-07-15] MEDS ORDERED: ONDANSETRON 4 MG/2 ML VIAL IVPUSH PRN (17:12)
--- NOTE | 2018-07-15 17:21 | CONSULT ---
Consult Consult Specialty:: General Surgery Reason for Consultation:: Acute appendicitis - History of Present Illness Chief Complaint: Abdominal pain History of Present Illness: 53yo female wiht PMH HTN, DM, afib (on eliquis last was 07/13 and cardizem) here today complaining of 2 days of abdominal pain, located worse on the right side of her abdomen. Endorses associated nausea and multiple episodes of vomiting. Patient attributes her symptoms to sausage that she ate because the pain started right after eating it. Her brother had the same sausage and was not affected. Denies dysuria, diarrhea, constipation. Denies chest pain and shortness of breath. Ct scan showed inflamed appendix. We were asked to assess. - History Source History Provided By: Patient, Medical Record Limitations to Obtaining History: No Limitations - Past Medical History Cardio/Vascular: Yes: AFIB Pulmonary: Yes: Asthma Gastrointestinal: Yes: Other (gallstones) Renal/: Yes: Renal Inusuff Infectious Disease: Yes: Other (LE cellulitis) Psych: Yes: Bipolar Endocrine: Yes: Diabetes Mellitus Dermatology: Yes: Cellulitis (b/l LE with ulcerations) Additional Medical History: obesity - Alcohol/Substance Use Hx Alcohol Use: No History of Substance Use: reports: Prescription (narcotics) - Smoking History Smoking history: Unknown if ever smoked Have you smoked in the past 12 months: No Aproximately how many cigarettes per day: 0 Home Medications - Allergies Allergies/Adverse Reactions: Allergies Allergy/AdvReac Type Severity Reaction Status Date / Time nut - unspecified Allergy Verified 07/15/18 08:18 Penicillins Allergy Verified 07/15/18 08:18 walnut Allergy Verified 07/15/18 08:18 - Home Medications Home Medications: Ambulatory Orders Budesonide/Formeterol Fumarate [SYMBICORT 80/4.5mcg -] 2 puff IH BID inhaler Insulin Sliding Scale [Novolog Vial Sliding Scale -] 1 vial SQ ACHS units 02/20 Apixaban [Eliquis -] 5 mg PO BID tablet 07/04/17 Pantoprazole Sodium [Protonix -] 40 mg PO DAILY tablet.ec 07/04/17 Enalapril Maleate 2.5 mg PO DAILY 07/15/18 Furosemide 40 mg PO ASDIR 07/15/18 Gabapentin 300 mg PO DAILY 07/15/18 Meloxicam 15 mg PO DAILY 07/15/18 Naproxen Sodium 550 mg PO DAILY 07/15/18 Potassium Chloride 10 meq PO DAILY 07/15/18 Tramadol HCl 50 mg PO PRN 07/15/18 Family Disease History - Family Disease History Family Disease History: Other: Brother (stomach cancer), Sister (breast cancer) Review of Systems - Review of Systems Constitutional: reports: Fever, Loss of Appetite. denies: Chills, Unintentional Wgt. Loss Eyes: denies: Blind Spots, Recent Change in Vision HENT: denies: Difficult Swallowing, Ear Discharge Neck: denies: Decreased ROM, Pain on Movement Cardiovascular: denies: Chest Pain, Palpitations Respiratory: denies: Cough, SOB Gastrointestinal: reports: Abdominal Pain. denies: Constipation, Diarrhea Genitourinary: denies: Discharge, Dysuria Breasts: reports: No Symptoms Reported. denies: Discharge from Nipple, Lumps, Pain Musculoskeletal: denies: Decreased ROM, Joint Swelling, Muscle Weakness Integumentary: denies: Incision, Lesions, Lump Neurological: denies: Seizure, Syncope Endocrine: denies: Unexplained Weight Gain, Unexplained Weight Loss Hematology/Lymphatic: denies: Easily Bruised, Excessive Bleeding Psychiatric: denies: Anxiety, Depression Physical Exam Vital Signs: Vital Signs Temperature 99.9 F H 07/15/18 15:46 Pulse Rate 93 H 07/15/18 15:46 Respiratory Rate 20 07/15/18 15:46 Blood Pressure 138/77 07/15/18 15:46 O2 Sat by Pulse Oximetry (%) 97 07/15/18 15:46 Constitutional: Yes: No Distress, Calm, Obese, Poor Hygeine Eyes: Yes: Conjunctiva Clear, EOM Intact HENT: Yes: Atraumatic, Normocephalic Neck: Yes: Supple, Trachea Midline Cardiovascular: Yes: Regular Rate and Rhythm, S1, S2 Respiratory: Yes: Regular, CTA Bilaterally Gastrointestinal: Yes: Normal Bowel Sounds, Soft, Abdomen, Obese, Hernia ( umbilical), Tenderness, Tenderness, Rebound. No: Hepatomegaly, Tenderness, Epigastrium ...Rectal Exam: Yes: Deferred Renal/: No: CVA Tenderness - Left, CVA Tenderness - Right Breast(s): No: Breast Implants, Gynecomastia Musculoskeletal: No: Muscle Pain, Muscle Weakness Extremities: Yes: Delayed Capillary Refill. No: Cool, Cyanosis Edema: Yes Edema: LUE: 3+, RUE: 3+, LLE: 3+, RLE: 3+ Peripheral Pulses WNL: Yes Integumentary: Yes: Venous Stasis Changes. No: Jaundice, Petechiae, Onychomycosis Neurological: Yes: Alert, Oriented Psychiatric: Yes: Alert, Oriented Labs: CBC, BMP 07/15/18 08:50 07/15/18 08:33 Imaging - Results Chest X-ray: Report Reviewed, Image Reviewed Cat Scan: Report Reviewed, Image Reviewed (dilated appendix with periappendiceal standing) EKG: Report Reviewed, Image Reviewed Problem List - Problems (1) Appendicitis Assessment/Plan: 53 yo with MMP presents with 2 days RLQ pain, tender on exam, WBC 21K, CT confirms periappendiceal standing, 2 days off eloquis, Afib not rate controlled. Will plan for appenectomy NPO and IVF hydration IV antibitics ID consult Cardiology evaluation for rate control, HR 128-132 on home cardizem continue to hold eloquis, for surgery 07/16 Incentive spirometry Discussed with patient risks, benefits and alternatives of laparoscopic possible open appendectomy, including but not limited to bleeding, infection, injury to adjacent structures, leak or injury, intraabdominal abscess, incisional hernia, need for further procedures, ; alternatives include antibiotics, delayed or no surgery - risks of this include failure of nonoperative therapy, perforation, sepsis, recurrence, . Patient desires to proceed with operation - will take to OR for above. Informed consent signed for same. Thank you for the opportunity to participate in the care of this patient. Code(s): K37 - UNSPECIFIED APPENDICITIS Qualifiers: Appendicitis type: acute appendicitis Acute appendicitis type: with localized peritonitis Appendicitis gangrene presence: without gangrene Appendicitis perforation presence: without perforation Appendicitis abscess presence: without abscess Qualified Code(s): K35.30 - Acute appendicitis with localized peritonitis, without perforation or gangrene (2) NOVA (acute kidney injury) Code(s): N17.9 - ACUTE KIDNEY FAILURE, UNSPECIFIED (3) Afib Code(s): I48.91 - UNSPECIFIED ATRIAL FIBRILLATION Qualifiers: Atrial fibrillation type: paroxysmal Qualified Code(s): I48.0 - Paroxysmal atrial fibrillation (4) Chronic cellulitis Code(s): L03.90 - CELLULITIS, UNSPECIFIED (5) DM2 (diabetes mellitus, type 2) Code(s): E11.9 - TYPE 2 DIABETES MELLITUS WITHOUT COMPLICATIONS Qualifiers: Diabetes mellitus dry curer insulin use: with half-way use Diabetes mellitus complication detail: with other circulatory complications (6) Obesity Code(s): E66.9 - OBESITY, UNSPECIFIED Qualifiers: Obesity type: due to excess calories Obesity classification: adult class 3 (BMI >= 40) Serious obesity comorbidity presence: with serious comorbidity Body mass index: BMI 40.0-44.9 Qualified Code(s): E66.01 - Morbid (severe) obesity due to excess calories; Z68.41 - Body mass index (BMI) 40.0-44.9, adult
[2018-07-15 17:44] VITALS: BMI 50.4
[2018-07-15] MEDS: LACTATED RINGERS SOLUTION 1,000 ML IV SCH (17:46)
--- NOTE | 2018-07-15 19:48 | HP ---
Admitting History and Physical - Primary Care Physician PCP: Onur Maxwell - Admission Chief Complaint: Abdominal pain with vomiting History of Present Illness: Patient is a 53 y/o female with past medical history of A-fib on Eliquis, HTN, DM. Patient presented to [facility] ER with complaints of abdominal pain with vomiting x 2 days. Patient states pain started Saturday morning around 3am. Pain is described as sharp and constant accompanied with vomiting. She states abdominal pain was also accompanied with dizziness. Patient was unable to hold food or liquids down. Abdomen/Pelvic CT scan show mildly dilated tubular structure which appears to be arising to the cecum in the RLQ which may represent a prominent appendix, some periappendiceal graying of the fat. Labs show elevated WBC 21.1 and neutrophils 90.9. History Source: Patient Limitations to Obtaining History: No Limitations - Past Medical History Cardiovascular: Yes: AFIB, HTN Pulmonary: Yes: Asthma Gastrointestinal: Yes: Other (gallstones) Renal/: Yes: Renal Inusuff Heme/Onc: No: Anemia, B12 Deficiency, Bleeding Disorder, Cancer, Current Chemotherapy, Current Radiation Therapy, Hemochromatosis, Hypercoaguable State, Myeloproliferative Synd, Sickle Cell Disease, Sickle Cell Trait, Thrombocytopenia, Other Infectious Disease: Yes: Other (LE cellulitis) Psych: Yes: Bipolar Endocrine: Yes: Diabetes Mellitus Dermatology: Yes: Cellulitis (b/l LE with ulcerations) - Smoking History Smoking history: Former smoker Have you smoked in the past 12 months: No Aproximately how many cigarettes per day: 0 - Alcohol/Substance Use Hx Alcohol Use: No History of Substance Use: reports: Prescription (narcotics) - Social History Usual Living Arrangement: Yes: Other (brother) ADL: Independent Home Medications - Allergies Allergies/Adverse Reactions: Allergies Allergy/AdvReac Type Severity Reaction Status Date / Time nut - unspecified Allergy Verified 07/15/18 08:18 Penicillins Allergy Verified 07/15/18 08:18 walnut Allergy Verified 07/15/18 08:18 - Home Medications Home Medications: Ambulatory Orders Budesonide/Formeterol Fumarate [SYMBICORT 80/4.5mcg -] 2 puff IH BID inhaler Insulin Sliding Scale [Novolog Vial Sliding Scale -] 1 vial SQ ACHS units 02/20 Apixaban [Eliquis -] 5 mg PO BID tablet 07/04/17 Pantoprazole Sodium [Protonix -] 40 mg PO DAILY tablet.ec 07/04/17 Enalapril Maleate 2.5 mg PO DAILY 07/15/18 Furosemide 40 mg PO ASDIR 07/15/18 Gabapentin 300 mg PO DAILY 07/15/18 Meloxicam 15 mg PO DAILY 07/15/18 Naproxen Sodium 550 mg PO DAILY 07/15/18 Potassium Chloride 10 meq PO DAILY 07/15/18 Tramadol HCl 50 mg PO PRN 07/15/18 Family Disease History - Family Disease History Family Disease History: Other: Brother (stomach cancer), Sister (breast cancer) Review of Systems - Review of Systems Constitutional: reports: Weakness Eyes: reports: No Symptoms HENT: reports: No Symptoms Neck: reports: No Symptoms Cardiovascular: reports: No Symptoms Respiratory: reports: SOB Gastrointestinal: reports: Abdominal Pain, Nausea Genitourinary: reports: No Symptoms Breasts: reports: No Symptoms Reported Musculoskeletal: reports: No Symptoms Integumentary: reports: Wound (B/L lower extremity) Neurological: reports: No Symptoms Endocrine: reports: No Symptoms Hematology/Lymphatic: reports: No Symptoms Psychiatric: reports: No Symptoms Physical Examination Vital Signs: Vital Signs Temperature 99.9 F H 07/15/18 15:46 Pulse Rate 93 H 07/15/18 15:46 Respiratory Rate 20 07/15/18 15:46 Blood Pressure 138/77 07/15/18 15:46 O2 Sat by Pulse Oximetry (%) 97 07/15/18 15:46 Constitutional: Yes: Mild Distress, Obese Eyes: Yes: Conjunctiva Clear HENT: Yes: Normocephalic Cardiovascular: Yes: Tachycardia Respiratory: Yes: Regular, CTA Bilaterally Gastrointestinal: Yes: Normal Bowel Sounds, Abdomen, Obese, Tenderness (RUQ, RLQ , epigastric) Extremities: Yes: WNL Edema: Yes (B/L lower extremity) Wound/Incision: Yes: Dressing Dry and Intact Neurological: Yes: Alert, Oriented Psychiatric: Yes: Alert, Oriented Labs: CBC, BMP 07/15/18 08:50 07/15/18 08:33 Laboratory Results - last 24 hr 07/15/18 07/15/18 07/15/18 08:33 08:50 15:00 WBC 21.1 H RBC 4.49 Hgb 13.1 Hct 38.5 D MCV 85.8 MCH 29.1 MCHC 33.9 RDW 16.2 H Plt Count 277 D MPV 10.2 Absolute Neuts (auto) 19.2 H Total Counted 100 Neutrophils % 90.9 H Neutrophils % (Manual) 92.0 H* Band Neutrophils % 0.0 Lymphocytes % 4.9 L D Lymphocytes % (Manual) 5.0 L Monocytes % 3.8 Monocytes % (Manual) 3 L Eosinophils % 0.1 D Basophils % 0.3 Nucleated RBC % 0 Polychromasia 1+ PT with INR 15.00 H INR 1.27 H Sodium 133 L Potassium 4.8 Chloride 106 Carbon Dioxide 20 L Anion Gap 8 BUN 36 H Creatinine 1.4 H Creat Clearance w eGFR 39.04 POC Glucometer Random Glucose 299 H Calcium 8.9 Total Bilirubin 0.4 AST 16 ALT 39 Alkaline Phosphatase 187 H Creatine Kinase 36 Troponin I < 0.02 Total Protein 7.4 Albumin 2.9 L Lipase 102 Urine Color Urine Appearance Urine pH Ur Specific [place] Urine Protein Urine Glucose (UA) Urine Ketones Urine Blood Urine Nitrite Urine Bilirubin Urine Urobilinogen Ur Leukocyte Esterase Urine WBC (Auto) Urine RBC (Auto) Ur Epithelial Cells Urine Bacteria Urine Mucus Blood Type Antibody Screen 07/15/18 07/15/18 07/15/18 15:00 15:10 17:23 WBC RBC Hgb Hct MCV MCH MCHC RDW Plt Count MPV Absolute Neuts (auto) Total Counted Neutrophils % Neutrophils % (Manual) Band Neutrophils % Lymphocytes % Lymphocytes % (Manual) Monocytes % Monocytes % (Manual) Eosinophils % Basophils % Nucleated RBC % Polychromasia PT with INR INR Sodium Potassium Chloride Carbon Dioxide Anion Gap BUN Creatinine Creat Clearance w eGFR POC Glucometer 236 Random Glucose Calcium Total Bilirubin AST ALT Alkaline Phosphatase Creatine Kinase Troponin I Total Protein Albumin Lipase Urine Color Yellow Urine Appearance Slcloudy Urine pH 5.0 Ur Specific [place] 1.024 Urine Protein 1+ H Urine Glucose (UA) Negative Urine Ketones Negative Urine Blood Negative Urine Nitrite Negative Urine Bilirubin Negative Urine Urobilinogen Negative Ur Leukocyte Esterase Negative Urine WBC (Auto) 1 Urine RBC (Auto) 2 Ur Epithelial Cells Rare Urine Bacteria Rare Urine Mucus Rare Blood Type A POSITIVE Antibody Screen Negative Imaging - Results Cat Scan: Report Reviewed Problem List - Problems (1) HTN (hypertension) Assessment/Plan: -continue enalapril PO -low Na diet when resume diet Code(s): I10 - ESSENTIAL (PRIMARY) HYPERTENSION (2) Appendicitis Assessment/Plan: -surgery on board -NPO -LR at 125cc/hr -patient scheduled for OR on 07/16/18 -flagyl IVPB and levaquin IVPB x 1 dose Code(s): K37 - UNSPECIFIED APPENDICITIS Qualifiers: Appendicitis type: acute appendicitis Acute appendicitis type: with localized peritonitis Appendicitis gangrene presence: without gangrene Appendicitis perforation presence: without perforation Appendicitis abscess presence: without abscess Qualified Code(s): K35.30 - Acute appendicitis with localized peritonitis, without perforation or gangrene (3) NOVA (acute kidney injury) Assessment/Plan: -current BUN/Cr 36/1.4 -will monitor renal function -if continue elevation will consult renal Code(s): N17.9 - ACUTE KIDNEY FAILURE, UNSPECIFIED (4) Abdominal pain Assessment/Plan: -surgery on board -pain management -NPO Code(s): R10.9 - UNSPECIFIED ABDOMINAL PAIN (5) Afib Assessment/Plan: -hold Eliquis for surgery on 07/16, will resume after surgery -metoprolol succinate 25mg PO x 1 dose for rate control -heparin sq TID Code(s): I48.91 - UNSPECIFIED ATRIAL FIBRILLATION Qualifiers: Atrial fibrillation type: paroxysmal Qualified Code(s): I48.0 - Paroxysmal atrial fibrillation (6) DM2 (diabetes mellitus, type 2) Assessment/Plan: -HgA1c ordered -will resume lantus and novlog when NPO status removed -BGM ACHS Code(s): E11.9 - TYPE 2 DIABETES MELLITUS WITHOUT COMPLICATIONS Qualifiers: Diabetes mellitus watermelon inspector insulin use: with watermelon inspector use Diabetes mellitus complication detail: with other circulatory complications (7) Leukocytosis Assessment/Plan: -flagyl and levaquin x 1 dose -ID consult -will monitor WBC Code(s): D72.829 - ELEVATED WHITE BLOOD CELL COUNT, UNSPECIFIED (8) Ulcers of both lower extremities Assessment/Plan: -vascular consult -daily dressing changes Code(s): L97.919 - NON-PRS CHRONIC ULC UNSP PRT OF R LOW LEG W UNSP SEVERITY; L97.929 - NON-PRS CHRONIC ULC UNSP PRT OF L LOW LEG W UNSP SEVERITY Qualifiers: Non-pressure ulcer stage: unspecified non-pressure ulcer stage Qualified Code(s): L97.919 - Non-pressure chronic ulcer of unspecified part of right lower leg with unspecified severity; L97.929 - Non-pressure chronic ulcer of unspecified part of left lower leg with unspecified severity; L97.929 - Non- pressure chronic ulcer of unspecified part of left lower leg with unspecified severity; L97.929 - Non-pressure chronic ulcer of unspecified part of left lower leg with unspecified severity; L97.929 - Non-pressure chronic ulcer of unspecified part of left lower leg with unspecified severity Assessment/Plan dvt ppx see problem list
[2018-07-15] MEDS: metoPROLOL SUCCINATE 25 MG TAB.SR.24H (FP) PO ONE ×2 (20:30→20:45)
[2018-07-15] MEDS ORDERED: PT OWN MED DRAWER 7, Y5N ONE (21:54)
[2018-07-15] MEDS: HEPARIN NA (PORCINE) 5,000 UNITS/ML 1ML VIAL SQ SCH (22:16)
[2018-07-15] MEDS: MORPHINE SULFATE 2 MG/ML VIAL IVPUSH PRN (22:59)
[2018-07-16] MEDS: MORPHINE SULFATE 2 MG/ML VIAL IVPUSH PRN ×2 (03:15→11:49)
[2018-07-16] MEDS: HEPARIN NA (PORCINE) 5,000 UNITS/ML 1ML VIAL SQ SCH ×3 (05:55→22:33)
[2018-07-16 06:56] LABS: HEMATOCRIT 33.9 % (32.4-45.2); HEMOGLOBIN 11.4 GM/dL (10.7-15.3); MCHC 33.7 g/dl (32.0-36.0); MEAN PLT VOLUME 9.7 fl (7.5-11.1); PLATELET COUNT 230 K/MM3 (134-434); RBC 3.94 M/mm3 (3.60-5.2); RDW 15.7 % (11.6-15.6); WHITE BLOOD COUNT 15.2 K/mm3 (4.0-10.0)
[2018-07-16 07:28] LABS: ALBUMIN 2.3 g/dl (3.4-5.0); ALK PHOS 153 U/L (45-117); ANION GAP 7 MMOL/L (8-16); BILIRUBIN,TOTAL 0.7 mg/dL (0.2-1); BLOOD UREA NITROGEN 27 mg/dL (7-18); CALCIUM 8.4 mg/dL (8.5-10.1); CHLORIDE 109 mmol/L (98-107); CO2 20 mmol/L (21-32); CREATININE 1.1 mg/dL (0.55-1.3); GLUCOSE,RANDOM 208 mg/dL (74-106); POTASSIUM 4.6 mmol/L (3.5-5.1); SGOT/AST 10 U/L (15-37); SGPT/ALT 26 U/L (13-61); SODIUM 137 mmol/L (136-145); TOT PROT 6.2 g/dl (6.4-8.2)
--- NOTE | 2018-07-16 08:13 | CON.ID ---
Consult Consult Specialty:: infectious diseases Reason for Consultation:: appendicitis,b/l leg infection - History of Present Illness Chief Complaint: abd pain History of Present Illness: 53yo female wiht PMH HTN, DM, afib (on eliquis last was 07/13 and cardizem) admitted be cause of abd pain which has been going on for couple of days patient well known to me from previous admission for which she was treated for the leg wounds and still continues to have infection. according to the staff patients legs still ahve multiple open areas and still with foul smell now with dressing on them . Denies dysuria, diarrhea, constipation. Denies chest pain and shortness of breath. Ct scan showed inflamed appendix. We were asked to assess. patient was seen by surgery and is being taken to the operating room for appendectomy - History Source History Provided By: Patient Limitations to Obtaining History: No Limitations - Past Medical History Cardio/Vascular: Yes: AFIB, HTN Pulmonary: Yes: Asthma Gastrointestinal: Yes: Other (gallstones) Renal/: Yes: Renal Inusuff Infectious Disease: Yes: Other (LE cellulitis) Psych: Yes: Bipolar Endocrine: Yes: Diabetes Mellitus Dermatology: Yes: Cellulitis (b/l LE with ulcerations) Additional Medical History: obesity - Alcohol/Substance Use Hx Alcohol Use: No History of Substance Use: reports: Prescription (narcotics) - Smoking History Smoking history: Former smoker Have you smoked in the past 12 months: No Aproximately how many cigarettes per day: 0 - Social History ADL: Independent Home Medications - Allergies Allergies/Adverse Reactions: Allergies Allergy/AdvReac Type Severity Reaction Status Date / Time nut - unspecified Allergy Verified 07/15/18 08:18 Penicillins Allergy Verified 07/15/18 08:18 walnut Allergy Verified 07/15/18 08:18 - Home Medications Home Medications: Ambulatory Orders Budesonide/Formeterol Fumarate [SYMBICORT 80/4.5mcg -] 2 puff IH BID inhaler Insulin Sliding Scale [Novolog Vial Sliding Scale -] 1 vial SQ ACHS units 02/20 Apixaban [Eliquis -] 5 mg PO BID tablet 07/04/17 Pantoprazole Sodium [Protonix -] 40 mg PO DAILY tablet.ec 07/04/17 Enalapril Maleate 2.5 mg PO DAILY 07/15/18 Furosemide 40 mg PO ASDIR 07/15/18 Gabapentin 300 mg PO DAILY 07/15/18 Meloxicam 15 mg PO DAILY 07/15/18 Naproxen Sodium 550 mg PO DAILY 07/15/18 Potassium Chloride 10 meq PO DAILY 07/15/18 Tramadol HCl 50 mg PO PRN 07/15/18 Family Disease History - Family Disease History Family Disease History: Other: Brother (stomach cancer), Sister (breast cancer) Physical Exam Vital Signs: Vital Signs Temperature 99.3 F 07/16/18 06:19 Pulse Rate 106 H 07/16/18 06:19 Respiratory Rate 20 07/16/18 06:19 Blood Pressure 122/84 07/16/18 06:19 O2 Sat by Pulse Oximetry (%) 97 07/15/18 21:00 Constitutional: Yes: Well Nourished, Obese Eyes: Yes: Conjunctiva Clear HENT: Yes: Atraumatic, Normocephalic Neck: Yes: Supple, Trachea Midline Cardiovascular: Yes: Regular Rate and Rhythm Respiratory: Yes: Regular, CTA Bilaterally Gastrointestinal: Yes: Soft, Hypoactive Bowel Sounds Musculoskeletal: Yes: WNL Extremities: Yes: Other Wound/Incision: Yes: Dressing Dry and Intact Neurological: Yes: Alert, Oriented Psychiatric: Yes: Alert, Oriented Labs: CBC, BMP 07/16/18 05:40 07/16/18 05:40 Imaging - Results Cat Scan: Report Reviewed, Image Reviewed Assessment/Plan Problem List - Problems (1) Appendicitis Code(s): K37 - UNSPECIFIED APPENDICITIS Qualifiers: Appendicitis type: acute appendicitis Acute appendicitis type: with localized peritonitis Appendicitis gangrene presence: without gangrene Appendicitis perforation presence: without perforation Appendicitis abscess presence: without abscess Qualified Code(s): K35.30 - Acute appendicitis with localized peritonitis, without perforation or gangrene (2) NOVA (acute kidney injury) Code(s): N17.9 - ACUTE KIDNEY FAILURE, UNSPECIFIED (3) Afib Code(s): I48.91 - UNSPECIFIED ATRIAL FIBRILLATION Qualifiers: Atrial fibrillation type: paroxysmal Qualified Code(s): I48.0 - Paroxysmal atrial fibrillation (4) Chronic cellulitis Code(s): L03.90 - CELLULITIS, UNSPECIFIED (5) DM2 (diabetes mellitus, type 2) Code(s): E11.9 - TYPE 2 DIABETES MELLITUS WITHOUT COMPLICATIONS Qualifiers: Diabetes mellitus long line teamster insulin use: with long line teamster use Diabetes mellitus complication detail: with other circulatory complications (6) Obesity Code(s): E66.9 - OBESITY, UNSPECIFIED Qualifiers: Obesity type: due to excess calories Obesity classification: adult class 3 (BMI >= 40) Serious obesity comorbidity presence: with serious comorbidity Body mass index: BMI 40.0-44.9 Qualified Code(s): E66.01 - Morbid (severe) obesity due to excess calories; Z68.41 - Body mass index (BMI) 40.0-44.9, adult 7 b/l wound infection of both legs
--- NOTE | 2018-07-16 08:33 | CONSULT ---
- Consultation REQUESTING PROVIDER: Dr. Culp covering for Dr. Calderon CONSULT REQUEST: We have been asked to surgically evaluate this patient for chronic bilateral lower extremity wounds. PCP: Onur Maxwell HPI: Called to eval 53yo female w/ PMHx as noted below. Comes to [facility] ED 2/ to ABD pain x5 days. She had a CT which showed acute appy. Dr. Dean Consulted and plans on taking her to OR today for Lap Appy. During physical exam, ER attending notes chronic LE wounds that appear to be infected/foul smelling. Patient states she is followed by Dr. Calderon in [facility]. Patient administered Flagyl and Levoflxacin in ED. Currently on Meropenem per ID/Bobde. Denies n/v/f/c, CP, palpitations, SOB, [place] or cough. Denies hematuria or dysuria PMHx: Afib, HTN, Asthma, Cholelithiasis, Renal Inusuff, Chronic LE cellulitis, Bipolar, DM, Morbid Obesity, Lymphedema PSHx: Denies. Home Meds: Budesonide/Formeterol Fumarate [SYMBICORT 80/4.5mcg -] 2 puff IH BID inhaler Insulin Sliding Scale [Novolog Vial Sliding Scale -] 1 vial SQ ACHS units 02/20 Apixaban [Eliquis -] 5 mg PO BID tablet 07/04/17 Pantoprazole Sodium [Protonix -] 40 mg PO DAILY tablet.ec 07/04/17 Enalapril Maleate 2.5 mg PO DAILY 07/15/18 Furosemide 40 mg PO ASDIR 07/15/18 Gabapentin 300 mg PO DAILY 07/15/18 Meloxicam 15 mg PO DAILY 07/15/18 Naproxen Sodium 550 mg PO DAILY 07/15/18 Potassium Chloride 10 meq PO DAILY 07/15/18 Tramadol HCl 50 mg PO PRN 07/15/18 Allergies: Walnuts, PCNs ROS: CONSTITUTIONAL: Absent: diaphoresis, generalized weakness, malaise, weight change CARDIOVASCULAR: Absent: syncope, lightheadedness, peripheral edema RESPIRATORY: Absent: wheezing, stridor, hemoptysis GASTROINTESTINAL: ACUTE APPY GENITOURINARY: Absent: frequency, urgency, hesitancy, flank pain, genital pain MUSCULOSKELETAL: Absent: myalgia, arthralgia, joint swelling, back pain, neck pain SKIN: SEE HPI HEMATOLOGIC/IMMUNOLOGIC: Absent: easy bleeding, easy bruising, lymphadenopathy NEUROLOGIC: Absent: headache, focal weakness, paresthesias, dizziness, unsteady gait, seizure, mental status changes, PSYCHIATRIC: Absent: anxiety, suicidal or homicidal ideation, hallucinations. PE: GENERAL: Awake, alert, and fully oriented, in no acute distress. HEAD: Normal with no signs of trauma. EYES: PERRL, sclera anicteric, conjunctiva clear. NECK: Normal ROM, supple, no JVD, or masses. LUNGS: CTA bilat HEART: Afib ABDOMEN: Morbidly obese habitus. + McBurney's point tenderness. MUSCULOSKELETAL: No CVAT bilat UE: 2+ pulses, warm, well-perfused. No cyanosis. Cap refill <2 seconds. No peripheral edema. LE: Venous stasis skin changes from below knee to maleolus. Malodorous. Multiple open lesions stage 1 to anterior & posterior surfaces of tibia/calf. + 2 edema (weeping). Feet warm bilat. Palpable DP. Left hallux dry lesion. Right foot 3rd toe dry lesion. NEURO: Normal speech, gait not observed. PSYCH: Cooperative. Good eye contact. Appropriate mood and affect. Last Vital Signs Temp Pulse Resp BP Pulse Ox 99.3 F 106 H 20 122/84 97 07/16/18 06:19 07/16/18 06:19 07/16/18 06:19 07/16/18 06:19 07/15/18 21:00 CBC, BMP 07/16/18 05:40 07/16/18 05:40 INR, PTT INR 1.27 (0.83-1.09) H 07/15/18 15:00 URINE Urine Color Yellow 07/15/18 15:10 Urine Appearance Slcloudy 07/15/18 15:10 Urine pH 5.0 (5.0-8.0) 07/15/18 15:10 Ur Specific [place] 1.024 (1.010-1.035) 07/15/18 15:10 Urine Protein 1+ (NEGATIVE) H 07/15/18 15:10 Urine Glucose (UA) Negative (NEGATIVE) 07/15/18 15:10 Urine Ketones Negative (NEGATIVE) 07/15/18 15:10 Urine Blood Negative (NEGATIVE) 07/15/18 15:10 Urine Nitrite Negative (NEGATIVE) 07/15/18 15:10 Urine Bilirubin Negative (<2.0 mg/dL) 07/15/18 15:10 Ur Leukocyte Esterase Negative (NEGATIVE) 07/15/18 15:10 Ur Epithelial Cells Rare /HPF (FEW) 07/15/18 15:10 Urine Bacteria Rare /hpf (NONE SEEN) 07/15/18 15:10 Urine Mucus Rare 07/15/18 15:10 Problem List - Problems (1) Chronic cellulitis Assessment/Plan: 53yo female admitted with acute appendicitis. Going to OR today. [facility] to [facility] Dressings changed on rounds: 1. Xeroform 2. 4x4 3. Kerlix 4. Light MARIS compression 5. Elevation Tight glycemic control Tylenol for fever > 100.3F IV ABX as per ID/Bobde Daily wound care orders placed No surgical intervention planned. Above plan discussed with Dr. Culp who is covering for Dr. Calderon in his absence and agrees On behalf of Drs. Culp and Kvng, thank you for the opportunity to participate in your patient's care. Code(s): L03.90 - CELLULITIS, UNSPECIFIED (2) Appendicitis Assessment/Plan: Going to OR today for Lap Appy with Drs. Dean and Daniella Cont NPO IVF Pain Management PRN Code(s): K37 - UNSPECIFIED APPENDICITIS Qualifiers: Appendicitis type: acute appendicitis Acute appendicitis type: with localized peritonitis Appendicitis gangrene presence: without gangrene Appendicitis perforation presence: without perforation Appendicitis abscess presence: without abscess Qualified Code(s): K35.30 - Acute appendicitis with localized peritonitis, without perforation or gangrene (3) Morbid obesity Code(s): E66.01 - MORBID (SEVERE) OBESITY DUE TO EXCESS CALORIES (4) Venous stasis Code(s): I87.8 - OTHER SPECIFIED DISORDERS OF VEINS Visit type - Case Type Case Type: ED Admission - Emergency Emergency Visit: Yes ED Registration Date: 07/15/18 Care time: The patient presented to the Emergency Department on the above date and was hospitalized for further evaluation of their emergent condition. - New patient This patient is new to me today: Yes Date on this admission: 07/16/18
--- NOTE | 2018-07-16 08:37 | PN ---
Progress Note, Physician - Current Medication List Current Medications: Active Medications Heparin Sodium (Porcine) (Heparin -) 5,000 unit SQ TID LANCE Last Admin: 07/16/18 05:55 Dose: Not Given Lactated Ringer's (Lactated Ringers Solution) 1,000 mls @ 125 mls/hr IV ASDIR LANCE Last Admin: 07/15/18 17:46 Dose: 125 mls/hr Metronidazole (Flagyl 500mg Premixed Ivpb -) 500 mg in 100 mls @ 100 mls/hr IVPB Q8H-IV LANCE Last Admin: 07/16/18 01:56 Dose: 100 mls/hr Meropenem 1 gm/ Dextrose 100 mls @ 200 mls/hr IVPB Q8H-IV LANCE Morphine Sulfate (Morphine Sulfate) 4 mg IVPUSH Q4H PRN PRN Reason: PAIN LEVEL 7 - 10 Last Admin: 07/16/18 03:15 Dose: 4 mg Ondansetron HCl (Zofran Injection) 4 mg IVPUSH Q8H PRN PRN Reason: NAUSEA - Objective Vital Signs: Vital Signs Temperature 99.3 F 07/16/18 06:19 Pulse Rate 106 H 07/16/18 06:19 Respiratory Rate 20 07/16/18 06:19 Blood Pressure 122/84 07/16/18 06:19 O2 Sat by Pulse Oximetry (%) 97 07/15/18 21:00 Labs: CBC, BMP 07/16/18 05:40 07/16/18 05:40 INR, PTT INR 1.27 (0.83-1.09) H 07/15/18 15:00
[2018-07-16] MEDS ORDERED: PT OWN MED DRAWER 7, Y5N ONE ×2 (09:59→17:36)
[2018-07-16] MEDS: MEROPENEM 1 GM in DEXTROSE 5%-WATER 100 ML IVPB SCH (11:15)
--- NOTE | 2018-07-16 12:26 | CON.GI ---
Consult Consult Specialty:: Gastroenterology Referred by:: Tez Penn NP Reason for Consultation:: Abdominal pain - History of Present Illness Chief Complaint: Nausea, vomiting and RLQ pain History of Present Illness: 53 diabetic female developed nausea and vomiting after eating take out food 3 days ago. She later developed severe RLQ pain that prompted her to come to the ER. CT reveals a swollen appendix and she is awaiting surgery. The pain is reminiscent of a gallstone that she was told she passed several years ago. No h/ o abdominal surgery , She takes a PPI for acid reflux. She has never had an EGD or a colonoscopy. - History Source History Provided By: Patient Limitations to Obtaining History: No Limitations - Past Medical History Cardio/Vascular: Yes: AFIB, HTN Pulmonary: Yes: Asthma Gastrointestinal: Yes: GERD, Other (gallstone that passed) Hepatobiliary: Yes: Cholelithiasis (passed without surgery), Other (fatty liver) Renal/: Yes: Renal Inusuff Infectious Disease: Yes: Other (LE cellulitis) Psych: Yes: Bipolar Endocrine: Yes: Diabetes Mellitus Dermatology: Yes: Cellulitis (b/l LE with ulcerations) Additional Medical History: Morbid obesity - Past Surgical History Additional Surgical History: lower extremity ulcer debridements - Alcohol/Substance Use Hx Alcohol Use: Yes (only on hoildays) History of Substance Use: reports: Prescription (narcotics) - Smoking History Smoking history: Former smoker Have you smoked in the past 12 months: No Aproximately how many cigarettes per day: 0 If you are a former smoker, when did you quit?: quit age 13 - Social History Usual Living Arrangement: Alone ADL: Independent 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 Place of : [facility] History of Recent Travel: No Home Medications - Allergies Allergies/Adverse Reactions: Allergies Allergy/AdvReac Type Severity Reaction Status Date / Time nut - unspecified Allergy Verified 07/15/18 08:18 Penicillins Allergy Verified 07/15/18 08:18 walnut Allergy Verified 07/15/18 08:18 - Home Medications Home Medications: Ambulatory Orders Budesonide/Formeterol Fumarate [SYMBICORT 80/4.5mcg -] 2 puff IH BID inhaler Insulin Sliding Scale [Novolog Vial Sliding Scale -] 1 vial SQ ACHS units 02/20 Apixaban [Eliquis -] 5 mg PO BID tablet 07/04/17 Pantoprazole Sodium [Protonix -] 40 mg PO DAILY tablet.ec 07/04/17 Enalapril Maleate 2.5 mg PO DAILY 07/15/18 Furosemide 40 mg PO ASDIR 07/15/18 Gabapentin 300 mg PO DAILY 07/15/18 Meloxicam 15 mg PO DAILY 07/15/18 Naproxen Sodium 550 mg PO DAILY 07/15/18 Potassium Chloride 10 meq PO DAILY 07/15/18 Tramadol HCl 50 mg PO PRN 07/15/18 Family Disease History - Family Disease History Family Disease History: Other: Father ( age 50 CVA), Mother ( 82 ), Brother (stomach cancer), Sister (breast cancer) Review of Systems - Review of Systems Constitutional: reports: No Symptoms Eyes: reports: No Symptoms HENT: reports: No Symptoms Neck: reports: No Symptoms Cardiovascular: reports: No Symptoms Respiratory: reports: Exercise Intolerance, SOB on Exertion Gastrointestinal: reports: Abdominal Pain, Nausea, Vomiting Genitourinary: reports: No Symptoms Musculoskeletal: reports: Joint Pain Integumentary: reports: Wound (lower extremity ulcers) Physical Exam-GI Vital Signs: Vital Signs Temperature 98.4 F 07/16/18 09:25 Pulse Rate 110 H 07/16/18 09:25 Respiratory Rate 20 07/16/18 09:25 Blood Pressure 113/76 07/16/18 09:25 O2 Sat by Pulse Oximetry (%) 97 07/15/18 21:00 CBC,CMP WBC 15.2 K/mm3 (4.0-10.0) H 07/16/18 05:40 RBC 3.94 M/mm3 (3.60-5.2) 07/16/18 05:40 Hgb 11.4 GM/dL (10.7-15.3) 07/16/18 05:40 Hct 33.9 % (32.4-45.2) 07/16/18 05:40 MCV 86.0 fl (80-96) 07/16/18 05:40 MCH 29.0 pg (25.7-33.7) 07/16/18 05:40 MCHC 33.7 g/dl (32.0-36.0) 07/16/18 05:40 RDW 15.7 % (11.6-15.6) H 07/16/18 05:40 Plt Count 230 K/MM3 (134-434) 07/16/18 05:40 MPV 9.7 fl (7.5-11.1) 07/16/18 05:40 Absolute Neuts (auto) 19.2 K/mm3 (1.5-8.0) H 07/15/18 08:50 Total Counted 100 07/15/18 08:50 Neutrophils % 90.9 % (42.8-82.8) H 07/15/18 08:50 Neutrophils % (Manual) 92.0 % (42.8-82.8) H* 07/15/18 08:50 Band Neutrophils % 0.0 % 07/15/18 08:50 Lymphocytes % 4.9 % (8-40) L D 07/15/18 08:50 Lymphocytes % (Manual) 5.0 % (8-40) L 07/15/18 08:50 Monocytes % 3.8 % (3.8-10.2) 07/15/18 08:50 Monocytes % (Manual) 3 % (3.8-10.2) L 07/15/18 08:50 Eosinophils % 0.1 % (0-4.5) D 07/15/18 08:50 Basophils % 0.3 % (0-2.0) 07/15/18 08:50 Nucleated RBC % 0 % (0-0) 07/15/18 08:50 Polychromasia 1+ 07/15/18 08:50 Sodium 137 mmol/L (136-145) 07/16/18 05:40 Potassium 4.6 mmol/L (3.5-5.1) 07/16/18 05:40 Chloride 109 mmol/L (98-107) H 07/16/18 05:40 Carbon Dioxide 20 mmol/L (21-32) L 07/16/18 05:40 Anion Gap 7 MMOL/L (8-16) L 07/16/18 05:40 BUN 27 mg/dL (7-18) H 07/16/18 05:40 Creatinine 1.1 mg/dL (0.55-1.3) 07/16/18 05:40 Creat Clearance w eGFR 51.57 (>60) 07/16/18 05:40 POC Glucometer 224 UNITS (80-120) 07/16/18 11:23 Random Glucose 208 mg/dL (74-106) H 07/16/18 05:40 Hemoglobin A1c % 11.0 % (4.2-6.3) H 07/16/18 05:40 Calcium 8.4 mg/dL (8.5-10.1) L 07/16/18 05:40 Total Bilirubin 0.7 mg/dL (0.2-1) 07/16/18 05:40 AST 10 U/L (15-37) L 07/16/18 05:40 ALT 26 U/L (13-61) 07/16/18 05:40 Alkaline Phosphatase 153 U/L (45-117) H 07/16/18 05:40 Creatine Kinase 36 U/L (26-192) 07/15/18 08:33 Troponin I < 0.02 ng/ml (0.00-0.05) 07/15/18 08:33 Total Protein 6.2 g/dl (6.4-8.2) L 07/16/18 05:40 Albumin 2.3 g/dl (3.4-5.0) L 07/16/18 05:40 Lipase 102 U/L (73-393) 07/15/18 08:33 Current Medications Generic Name Dose Route Start Last Admin Trade Name Freq PRN Reason Stop Dose Admin Heparin Sodium (Porcine) 5,000 unit 07/15/18 22:00 07/16/18 05:55 Heparin - SQ Not Given TID LANCE Lactated Ringer's 1,000 mls @ 125 mls/hr 07/15/18 17:15 07/15/18 17:46 Lactated Ringers Solution IV 125 mls/hr ASDIR LANCE Administration Metronidazole 500 mg in 100 mls @ 100 mls/hr 07/15/18 18:00 07/16/18 10:13 Flagyl 500mg Premixed Ivpb - IVPB 100 mls/hr Q8H-IV LANCE Administration Meropenem 1 gm/ Dextrose 100 mls @ 200 mls/hr 07/16/18 10:00 07/16/18 11:15 IVPB 200 mls/hr Q8H-IV LANCE Administration Morphine Sulfate 4 mg 07/15/18 17:12 07/16/18 11:49 Morphine Sulfate IVPUSH 4 mg Q4H PRN Administration PAIN LEVEL 7 - 10 Ondansetron HCl 4 mg 07/15/18 17:12 Zofran Injection IVPUSH Q8H PRN NAUSEA Constitutional: Yes: Anxious Eyes: Yes: Conjunctiva Clear HENT: Yes: Atraumatic Neck: Yes: Trachea Midline Cardiovascular: Yes: Regular Rate and Rhythm Respiratory: Yes: CTA Bilaterally Gastrointestinal Inspection: Yes: Distention ...Auscultate: Yes: Hypoactive Bowel Sounds ...Palpate: Yes: Soft, Tenderness (RLQ) ...Percussion: Yes: Tympanitic ...Rectal Exam: Yes: Deferred (declined as in pain) Extremities: Yes: Erythema (bilateral lower extremities with ulcerations) Edema: Yes Edema: LLE: 1+, RLE: 1+ Neurological: Yes: Alert, Oriented Labs: CBC, BMP 07/16/18 05:40 07/16/18 05:40 INR, PTT INR 1.27 (0.83-1.09) H 07/15/18 15:00 Imaging - Results Cat Scan: Report Reviewed (Mu Delgado Name: [facility] DEPARTMENT OF RADIOLOGY Phys: Aris Funk RESIDENT : 1965 Age: 53 Sex: F [facility] Acct: [id number] Loc: [address] Exam Date: 07/15/18 Status: [place]U [place]A [place] [id number] Unit Number: [id number] EXAM#: TYPE/EXAM: RESULT: [id number] CT/ABDOMEN PELVIS CT W/O CONTR Clinical history: Right upper quadrant pain. Comparison: Ultrasound earlier today. CT abdomen and pelvis . Contiguous transaxial images were obtained from the diaphragmatic domes and pubic symphysis without the administration of oral and IV contrast. Sagittal and coronal reconstructions were performed. There are severe limitations related to body habitus. Lung bases: Increased pleural reaction posterior right lung base. Suggest follow-up. Bone: Osteopenia, scoliosis and degenerative changes. Liver: There is hepatomegaly with a fatty liver. Gallbladder: Negative. Biliary tree: Negative. Spleen: Negative. Small accessory spleens. Pancreas: Negative. Adrenals: Hypodense left adrenal mass measuring 16 x 18 mm and 18 Hounsfield units most likely adenoma. Kidneys: Negative. Pelvis: Negative. Bowel: There is a mildly dilated tubular structure which appears to be arising from the cecum in the right lower quadrant which may represent a prominent appendix. There appears to be some periappendiceal graying of the fat. This needs to be correlated clinically and with surgical consultation. The appendix was normal and filled with contrast on the prior study. Other: Small hiatal hernia. Umbilical hernia with fat. Impression: Severely limited exam due to body habitus with reduced resolution. Question of a prominent appendix with periappendiceal inflammation. It is difficult to evaluate adequately due to the limitations of the study. Clinical correlation and surgical consultation is suggested. There is a fatty liver, adrenal adenoma and increased pleural reactions posterior right lung base. Clinical correlation advised. Reported By: Danie Lawrence MD 07/15/18 141 Ar[address] Fukn Technologist: Tyron Chino Transcribed Date/Time: 07/15/181413 Data Entry Technician: Danie Lawrence Printed Date/Time: By: Signed by: Danie Lawrence Signed on: 15-Jul-2018 14:15) Problem List - Problems (1) Appendicitis Assessment/Plan: I concur with the diagnosis of appendicitis and support proceeding with surgery. Antibiotics already started and has been seen by Dr Dean Code(s): K37 - UNSPECIFIED APPENDICITIS Qualifiers: Appendicitis type: acute appendicitis Acute appendicitis type: with localized peritonitis Appendicitis gangrene presence: without gangrene Appendicitis perforation presence: without perforation Appendicitis abscess presence: without abscess Qualified Code(s): K35.30 - Acute appendicitis with localized peritonitis, without perforation or gangrene (2) Abdominal pain Code(s): R10.9 - UNSPECIFIED ABDOMINAL PAIN (3) Afib Code(s): I48.91 - UNSPECIFIED ATRIAL FIBRILLATION Qualifiers: Atrial fibrillation type: paroxysmal Qualified Code(s): I48.0 - Paroxysmal atrial fibrillation (4) Asthma Code(s): J45.909 - UNSPECIFIED ASTHMA, UNCOMPLICATED Qualifiers: Asthma severity: mild intermittent (5) Chronic cellulitis Code(s): L03.90 - CELLULITIS, UNSPECIFIED (6) DM2 (diabetes mellitus, type 2) Code(s): E11.9 - TYPE 2 DIABETES MELLITUS WITHOUT COMPLICATIONS Qualifiers: Diabetes mellitus fpc insulin use: with terminal press operator use Diabetes mellitus complication detail: with other circulatory complications (7) Morbid obesity Code(s): E66.01 - MORBID (SEVERE) OBESITY DUE TO EXCESS CALORIES (8) Renal failure (ARF), acute on chronic Code(s): N17.9 - ACUTE KIDNEY FAILURE, UNSPECIFIED; N18.9 - CHRONIC KIDNEY DISEASE, UNSPECIFIED (9) Fatty (change of) liver, not elsewhere classified Code(s): K76.0 - FATTY (CHANGE OF) LIVER, NOT ELSEWHERE CLASSIFIED (10) Family history of GI tract cancer Assessment/Plan: Although she denied any FH of GI cancer to me I told her that she is due for colon cancer screening either by colonoscopy or at least by Cologuard. She tells me that she already saw Dr Rivera for this. I gave her my business card and told her she should discuss how to proceed with her PMD , Dr Maxwell after discharge. Code(s): Z80.0 - FAMILY HISTORY OF MALIGNANT NEOPLASM OF DIGESTIVE ORGANS Assessment/Plan Impression: N/V and RLQ due to appendicitiis supported by CT imaging and WBC 21K Possible FH of GI cancer and due for colon cancer screening Fatty liver associated with morbid obesity GERD Plan: Agree with proceeding with surgery Fibrosure Cologuard or colonoscopy as outpatient which she will discuss with Dr Maxwell Resume PPI after surgery
--- NOTE | 2018-07-16 15:02 | CON.CARD ---
Consult Consult Specialty:: Cardiology Referred by:: Onur Maxwell Reason for Consultation:: Afib - History of Present Illness Chief Complaint: Abdominal pain History of Present Illness: 53 year old female with a pmhx of afib on apixaban, dm, htn, and chronic venous insufficiency presenting with abdominal pain and vomiting found to have wbc 21 and concern for appendicitis and started on Abx and planned for surgery. No chest pain or sob. No palpitations. - History Source History Provided By: Patient, Medical Record - Past Medical History Cardio/Vascular: Yes: AFIB, HTN Pulmonary: Yes: Asthma Gastrointestinal: Yes: GERD, Other (gallstone that passed) Hepatobiliary: Yes: Cholelithiasis (passed without surgery), Other (fatty liver) Renal/: Yes: Renal Inusuff Infectious Disease: Yes: Other (LE cellulitis) Psych: Yes: Bipolar Endocrine: Yes: Diabetes Mellitus Dermatology: Yes: Cellulitis (b/l LE with ulcerations) Additional Medical History: Morbid obesity - Past Surgical History Additional Surgical History: lower extremity ulcer debridements - Alcohol/Substance Use Hx Alcohol Use: Yes (only on hoildays) History of Substance Use: reports: Prescription (narcotics) - Smoking History Smoking history: Former smoker Have you smoked in the past 12 months: No Aproximately how many cigarettes per day: 0 If you are a former smoker, when did you quit?: quit age 13 - Social History Usual Living Arrangement: Alone ADL: Independent 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 History of Recent Travel: No Home Medications - Allergies Allergies/Adverse Reactions: Allergies Allergy/AdvReac Type Severity Reaction Status Date / Time nut - unspecified Allergy Verified 07/15/18 08:18 Penicillins Allergy Verified 07/15/18 08:18 walnut Allergy Verified 07/15/18 08:18 - Home Medications Home Medications: Ambulatory Orders Budesonide/Formeterol Fumarate [SYMBICORT 80/4.5mcg -] 2 puff IH BID inhaler Insulin Sliding Scale [Novolog Vial Sliding Scale -] 1 vial SQ ACHS units 02/20 Apixaban [Eliquis -] 5 mg PO BID tablet 07/04/17 Pantoprazole Sodium [Protonix -] 40 mg PO DAILY tablet.ec 07/04/17 Enalapril Maleate 2.5 mg PO DAILY 07/15/18 Furosemide 40 mg PO ASDIR 07/15/18 Gabapentin 300 mg PO DAILY 07/15/18 Meloxicam 15 mg PO DAILY 07/15/18 Naproxen Sodium 550 mg PO DAILY 07/15/18 Potassium Chloride 10 meq PO DAILY 07/15/18 Tramadol HCl 50 mg PO PRN 07/15/18 Family Disease History - Family Disease History Family Disease History: Other: Father ( age 50 CVA), Mother ( 82 ), Brother (stomach cancer), Sister (breast cancer) Vital Signs: Vital Signs Temperature 98.2 F 07/16/18 14:13 Pulse Rate 84 07/16/18 14:13 Respiratory Rate 18 07/16/18 14:13 Blood Pressure 125/78 07/16/18 14:13 O2 Sat by Pulse Oximetry (%) 97 07/15/18 21:00 Constitutional: Yes: Mild Distress Neck: Yes: Supple Respiratory: Yes: CTA Bilaterally Gastrointestinal: Yes: Tenderness Cardiovascular: Yes: Pulse Irregular JVD: No Carotid Bruit: No PMI: Non-Displaced Heart Sounds: Yes: S1, S2 Murmur: No: Systolic Murmur Edema: LLE: 1+, RLE: 1+ - Other Data Labs, Other Data: CBC, BMP 07/16/18 05:40 07/16/18 05:40 INR, PTT INR 1.27 (0.83-1.09) H 07/15/18 15:00 Imaging - Results EKG: Image Reviewed Problem List - Problems (1) Appendicitis Code(s): K37 - UNSPECIFIED APPENDICITIS Qualifiers: Appendicitis type: acute appendicitis Acute appendicitis type: with localized peritonitis Appendicitis gangrene presence: without gangrene Appendicitis perforation presence: without perforation Appendicitis abscess presence: without abscess Qualified Code(s): K35.30 - Acute appendicitis with localized peritonitis, without perforation or gangrene (2) Afib Code(s): I48.91 - UNSPECIFIED ATRIAL FIBRILLATION Qualifiers: Atrial fibrillation type: paroxysmal Qualified Code(s): I48.0 - Paroxysmal atrial fibrillation Assessment/Plan 53 year old female with a pmhx of afib on apixaban, dm, htn, and chronic venous insufficiency presenting with abdominal pain and vomiting found to have wbc 21 and concern for appendicitis and started on Abx and planned for surgery. No chest pain or sob. No palpitations. Mild NOVA on admission 1) Afib Planned for surgery today. NPO. No cardiac complaints Continue metoprolol 12.5mg q12 if patient tolerates. In past had some issues with bp and did not tolerate so would monitor bp. Also HR likely to improve with treatment of appendicitis/infection. Pain control -On apixaban but on hold for surgery and restart when ok with surgical team.
[2018-07-16] MEDS: LACTATED RINGERS SOLUTION 1,000 ML IV SCH ×2 (15:32→21:50)
--- NOTE | 2018-07-16 18:51 | OP ---
Operative Note - Note: Operative Date: 07/16/18 Pre-Operative Diagnosis: acute appendicitis Operation: laparoscopic appendectomy Findings: supperative peel on surface of the colon and appendix. Post-Operative Diagnosis: Other (acute suppaerative appendicitis) Surgeon: Hoang Dean Anesthesiologist/[employer] ENGINEER: Fabian Winn Anesthesia: General, Local Specimens Removed: appendix Estimated Blood Loss (mls): 5 Drains, Volume Out (mls): 100 (UOP (intraoperative cuevas)) Fluid Volume Replaced (mls): 1,000 Operative Report Dictated: Yes
[2018-07-16] MEDS ORDERED: MIDAZOLAM HCL 2 MG/2 ML SINGLE DOSE VIAL ONE (18:54)
[2018-07-16] MEDS ORDERED: DEXAMETHASONE SOD PHOSPHATE 4 MG/1 ML VIAL ONE (18:54)
[2018-07-16] MEDS ORDERED: LIDOCAINE HCL/PF 2% SDV 5ML VIAL ONE (18:55)
[2018-07-16] MEDS ORDERED: PROPOFOL 20 ML ONE (18:55)
[2018-07-16] MEDS ORDERED: ROCURONIUM BROMIDE 50 MG/5 ML VIAL ONE (18:56)
[2018-07-16] MEDS ORDERED: ESMOLOL HCL 100,000 MCG/10 ML VIAL ONE (19:07)
[2018-07-16] MEDS ORDERED: ACETAMINOPHEN INJECTION 100 ML IVPB ONE ×2 (19:20)
[2018-07-16] MEDS ORDERED: MEROPENEM 1 GM VIAL (RESTRICTED TO ID) IVPB ONE (19:25)
[2018-07-16] MEDS ORDERED: METOPROLOL TARTRATE 5 MG/5 ML VIAL ONE (19:37)
[2018-07-16] MEDS ORDERED: NEOSTIGMINE METHYLSULFATE 0.5 MG/ML - 10 ML MDV ONE (20:04)
[2018-07-16] MEDS ORDERED: GLYCOPYRROLATE 0.2 MG/1 ML VIAL ONE (20:04)
[2018-07-16] MEDS ORDERED: BUPIVACAINE HCL/PF (5 MG/ML) 30 ML VIAL IJ ONE (20:08)
[2018-07-16] MEDS ORDERED: ALBUTEROL SO4 0.083% IH SOL 2.5 MG/3 ML VIAL.NEB. NEB ONE (20:25)
[2018-07-16] MEDS ORDERED: ALBUTEROL SO4 0.5 % INH SOLN 2.5 MG/0.5 ML VIAL.NEB. NEB ONE ×2 (20:32→21:00)
[2018-07-16] MEDS ORDERED: ONDANSETRON 4 MG/2 ML VIAL IVPUSH PRN (20:42)
[2018-07-17] MEDS ORDERED: PT OWN MED DRAWER 7, Y5N ONE ×3 (00:42→17:37)
[2018-07-17] MEDS: MEROPENEM 1 GM in DEXTROSE 5%-WATER 100 ML IVPB SCH ×4 (01:16→17:42)
[2018-07-17] MEDS: morphine SULFATE 4 MG/ML VIAL IVPUSH PRN ×4 (02:12→20:33)
[2018-07-17] MEDS: HEPARIN NA (PORCINE) 5,000 UNITS/ML 1ML VIAL SQ SCH (06:06)
[2018-07-17] MEDS: LACTATED RINGERS SOLUTION 1,000 ML IV SCH ×3 (06:12→16:35)
[2018-07-17 08:48] LABS: BASO % 0.3 % (0-2.0); EOS % 0.3 % (0-4.5); HEMATOCRIT 35.2 % (32.4-45.2); HEMOGLOBIN 11.8 GM/dL (10.7-15.3); MCH 29.3 pg (25.7-33.7); MCHC 33.6 g/dl (32.0-36.0); MEAN CELL VOLUME 86.9 fl (80-96); MEAN PLT VOLUME 10.4 fl (7.5-11.1); NEUT % 96.4 % (42.8-82.8); PLATELET COUNT 221 K/MM3 (134-434); RBC 4.04 M/mm3 (3.60-5.2); RDW 15.9 % (11.6-15.6); WHITE BLOOD COUNT 16.3 K/mm3 (4.0-10.0)
[2018-07-17] MEDS: APIXABAN 5 MG TABLET PO SCH ×3 (09:45→21:22)
--- NOTE | 2018-07-17 09:56 | PN ---
Progress Note, Physician Chief Complaint: Appendicitis S/p lap appendectomy History of Present Illness: Previous notes and events reviewed awake and alert tachycardic with HR 120s POD #1 s/p lap appendectomy - Current Medication List Current Medications: Active Medications Apixaban (Eliquis -) 5 mg PO BID [facility]END[facility] TO [facility] Last Admin: 07/17/18 09:45 Dose: 5 mg Metronidazole (Flagyl 500mg Premixed Ivpb -) 500 mg in 100 mls @ 100 mls/hr IVPB Q8H-IV [facility] Last Admin: 07/17/18 09:45 Dose: 100 mls/hr Lactated Ringer's (Lactated Ringers Solution) 1,000 mls @ 125 mls/hr IV ASDIR [facility] Last Admin: 07/17/18 06:12 Dose: 125 mls/hr Meropenem 1 gm/ Dextrose 100 mls @ 200 mls/hr IVPB Q8H-IV [facility] Last Admin: 07/17/18 01:16 Dose: 200 mls/hr Morphine Sulfate (Morphine Sulfate) 4 mg IVPUSH Q4H PRN PRN Reason: PAIN LEVEL 7 - 10 Last Admin: 07/17/18 02:12 Dose: 4 mg Ondansetron HCl (Zofran Injection) 4 mg IVPUSH Q8H PRN PRN Reason: NAUSEA - Objective Vital Signs: Vital Signs Temperature 99.4 F 07/17/18 06:57 Pulse Rate 124 H 07/17/18 06:57 Respiratory Rate 20 07/17/18 06:57 Blood Pressure 90/55 L 07/17/18 06:57 O2 Sat by Pulse Oximetry (%) 98 07/16/18 22:20 Constitutional: Yes: Mild Distress, Obese Eyes: Yes: Conjunctiva Clear HENT: Yes: Normocephalic Cardiovascular: Yes: Tachycardia, Pulse Irregular Respiratory: Yes: Regular, CTA Bilaterally Gastrointestinal: Yes: Abdomen, Obese, Hypoactive Bowel Sounds, Tenderness (RLQ and RUQ) Musculoskeletal: Yes: Muscle Weakness Extremities: Yes: WNL Edema: Yes (b/l lower extremity) Wound/Incision: Yes: Clean/Dry, Open to air Neurological: Yes: Alert, Oriented Psychiatric: Yes: Alert, Oriented Labs: CBC, BMP 07/17/18 05:30 07/16/18 05:40 INR, PTT INR 1.27 (0.83-1.09) H 07/15/18 15:00 <Marlene Gonzales - Last Filed: 07/17/18 09:51> - Current Medication List Current Medications: Active Medications Apixaban (Eliquis -) 5 mg PO BID [facility]END[facility] Last Admin: 07/17/18 20:34 Dose: 5 mg Metronidazole (Flagyl 500mg Premixed Ivpb -) 500 mg in 100 mls @ 100 mls/hr IVPB Q8H-IV [facility] Last Admin: 07/17/18 18:53 Dose: 100 mls/hr Lactated Ringer's (Lactated Ringers Solution) 1,000 mls @ 125 mls/hr IV ASDIR [facility] Last Admin: 07/17/18 16:35 Dose: 125 mls/hr Meropenem 1 gm/ Dextrose 100 mls @ 200 mls/hr IVPB Q8H-IV [facility] Last Admin: 07/17/18 17:42 Dose: 200 mls/hr Insulin Aspart (Novolog Vial Sliding Scale -) 1 vial SQ [facility]; Protocol Last Admin: 07/17/18 17:41 Dose: 6 units Metoprolol Succinate (Toprol Xl -) 12.5 mg PO NOW ONE Stop: 07/18/18 14:59 Metoprolol Succinate (Toprol Xl -) 12.5 mg PO DAILY [facility] Morphine Sulfate (Morphine Sulfate) 4 mg IVPUSH Q4H PRN PRN Reason: PAIN LEVEL 7 - 10 Last Admin: 07/17/18 20:33 Dose: 4 mg Ondansetron HCl (Zofran Injection) 4 mg IVPUSH Q8H PRN PRN Reason: NAUSEA - Objective Vital Signs: Vital Signs Temperature 98.4 F 07/17/18 14:31 Pulse Rate 136 H 07/17/18 14:31 Respiratory Rate 18 07/17/18 14:31 Blood Pressure 108/60 07/17/18 14:31 O2 Sat by Pulse Oximetry (%) 92 L 07/17/18 09:00 Labs: CBC, BMP 07/17/18 05:30 07/16/18 05:40 INR, PTT INR 1.27 (0.83-1.09) H 07/15/18 15:00 <Onur Maxwell - Last Filed: 07/17/18 20:57> Problem List - Problems (1) HTN (hypertension) Assessment/Plan: -continue enalapril PO -low Na diet when resume diet Code(s): I10 - ESSENTIAL (PRIMARY) HYPERTENSION (2) Appendicitis Assessment/Plan: -surgery on board -POD #1 s/p lap appendectomy -continue with flagyl IVPB -pain management Code(s): K37 - UNSPECIFIED APPENDICITIS Qualifiers: Appendicitis type: acute appendicitis Acute appendicitis type: with localized peritonitis Appendicitis gangrene presence: without gangrene Appendicitis perforation presence: without perforation Appendicitis abscess presence: without abscess Qualified Code(s): K35.30 - Acute appendicitis with localized peritonitis, without perforation or gangrene (3) NOVA (acute kidney injury) Assessment/Plan: -current BUN/Cr 22/06.1 -will monitor renal function -if continue elevation will consult renal Code(s): N17.9 - ACUTE KIDNEY FAILURE, UNSPECIFIED (4) Abdominal pain Assessment/Plan: -surgery and GI on board -pain management Code(s): R10.9 - UNSPECIFIED ABDOMINAL PAIN (5) Afib Assessment/Plan: -restarted on Eliquis 5mg BIF -cardiology on board Code(s): I48.91 - UNSPECIFIED ATRIAL FIBRILLATION Qualifiers: Atrial fibrillation type: paroxysmal Qualified Code(s): I48.0 - Paroxysmal atrial fibrillation (6) DM2 (diabetes mellitus, type 2) Assessment/Plan: -HgA1c 11.0% -BGM ACHS, ISS -endo consult -diabetic diet Code(s): E11.9 - TYPE 2 DIABETES MELLITUS WITHOUT COMPLICATIONS Qualifiers: Diabetes mellitus bed bug exterminator insulin use: with bed bug exterminator use Diabetes mellitus complication detail: with other circulatory complications (7) Leukocytosis Assessment/Plan: -flagyl IVPB -ID on board -WBC 16.3, will continue to monitor Code(s): D72.829 - ELEVATED WHITE BLOOD CELL COUNT, UNSPECIFIED (8) Ulcers of both lower extremities Assessment/Plan: -vascular consult -daily dressing changes Code(s): L97.919 - NON-PRS CHRONIC ULC UNSP PRT OF R LOW LEG W UNSP SEVERITY; L97.929 - NON-PRS CHRONIC ULC UNSP PRT OF L LOW LEG W UNSP SEVERITY Qualifiers: Non-pressure ulcer stage: unspecified non-pressure ulcer stage Qualified Code(s): L97.919 - Non-pressure chronic ulcer of unspecified part of right lower leg with unspecified severity; L97.929 - Non-pressure chronic ulcer of unspecified part of left lower leg with unspecified severity; L97.929 - Non- pressure chronic ulcer of unspecified part of left lower leg with unspecified severity; L97.929 - Non-pressure chronic ulcer of unspecified part of left lower leg with unspecified severity; L97.929 - Non-pressure chronic ulcer of unspecified part of left lower leg with unspecified severity <Marlene Gonzales - Last Filed: 07/17/18 09:51> Assessment/Plan dvt ppx see problem list <Marlene Gonzales - Last Filed: 07/17/18 09:51>
--- NOTE | 2018-07-17 10:18 | PN ---
Progress Note, Physician History of Present Illness: stable pain better - Current Medication List Current Medications: Active Medications Apixaban (Eliquis -) 5 mg PO BID [facility] Last Admin: 07/17/18 09:45 Dose: 5 mg Metronidazole (Flagyl 500mg Premixed Ivpb -) 500 mg in 100 mls @ 100 mls/hr IVPB Q8H-IV [facility] Last Admin: 07/17/18 09:45 Dose: 100 mls/hr Lactated Ringer's (Lactated Ringers Solution) 1,000 mls @ 125 mls/hr IV ASDIR [facility] Last Admin: 07/17/18 06:12 Dose: 125 mls/hr Meropenem 1 gm/ Dextrose 100 mls @ 200 mls/hr IVPB Q8H-IV [facility] Last Admin: 07/17/18 01:16 Dose: 200 mls/hr Insulin Aspart (Novolog Vial Sliding Scale -) 1 vial SQ [facility]; Protocol Morphine Sulfate (Morphine Sulfate) 4 mg IVPUSH Q4H PRN PRN Reason: PAIN LEVEL 7 - 10 Last Admin: 07/17/18 02:12 Dose: 4 mg Ondansetron HCl (Zofran Injection) 4 mg IVPUSH Q8H PRN PRN Reason: NAUSEA - Objective Vital Signs: Vital Signs Temperature 99.4 F 07/17/18 06:57 Pulse Rate 124 H 07/17/18 06:57 Respiratory Rate 20 07/17/18 06:57 Blood Pressure 90/55 L 07/17/18 06:57 O2 Sat by Pulse Oximetry (%) 98 07/16/18 22:20 Constitutional: Yes: No Distress, Calm, Obese Cardiovascular: Yes: Regular Rate and Rhythm Respiratory: Yes: Regular, CTA Bilaterally Gastrointestinal: Yes: Normal Bowel Sounds, Soft Musculoskeletal: Yes: WNL Extremities: Yes: Other Wound/Incision: Yes: Dressing Dry and Intact Neurological: Yes: Alert, Oriented Psychiatric: Yes: Alert, Oriented Labs: CBC, BMP 07/17/18 05:30 07/16/18 05:40 INR, PTT INR 1.27 (0.83-1.09) H 07/15/18 15:00 Assessment/Plan Problem List - Problems (1) Appendicitis Code(s): K37 - UNSPECIFIED APPENDICITIS Qualifiers: Appendicitis type: acute appendicitis Acute appendicitis type: with localized peritonitis Appendicitis gangrene presence: without gangrene Appendicitis perforation presence: without perforation Appendicitis abscess presence: without abscess Qualified Code(s): K35.30 - Acute appendicitis with localized peritonitis, without perforation or gangrene (2) NOVA (acute kidney injury) Code(s): N17.9 - ACUTE KIDNEY FAILURE, UNSPECIFIED (3) Afib Code(s): I48.91 - UNSPECIFIED ATRIAL FIBRILLATION Qualifiers: Atrial fibrillation type: paroxysmal Qualified Code(s): I48.0 - Paroxysmal atrial fibrillation (4) Chronic cellulitis Code(s): L03.90 - CELLULITIS, UNSPECIFIED (5) DM2 (diabetes mellitus, type 2) Code(s): E11.9 - TYPE 2 DIABETES MELLITUS WITHOUT COMPLICATIONS Qualifiers: Diabetes mellitus penitentiary insulin use: with penitentiary use Diabetes mellitus complication detail: with other circulatory complications (6) Obesity Code(s): E66.9 - OBESITY, UNSPECIFIED Qualifiers: Obesity type: due to excess calories Obesity classification: adult class 3 (BMI >= 40) Serious obesity comorbidity presence: with serious comorbidity Body mass index: BMI 40.0-44.9 Qualified Code(s): E66.01 - Morbid (severe) obesity due to excess calories; Z68.41 - Body mass index (BMI) 40.0-44.9, adult 7 b/l wound infection of both legs plan continue abx rest as per surgery await for all cx rest as per the team
--- NOTE | 2018-07-17 11:13 | PN ---
Progress Note (short form) - Note Progress Note: Anesthesia postop note 53 y/o F s/p GA for Laparoscopic appendectomy POD#1, aaox3, vss, some abdominal discomfort. No anesthesia complications.
[2018-07-17] MEDS ORDERED: INSULIN (NOVOLOG) ASPART 100 UNITS/ML 10ML VIAL ONE ×2 (12:17→20:29)
[2018-07-17] MEDS: INSULIN SLIDING SCALE (NOVOLOG) 1 VIAL SQ SCH ×3 (12:28→21:22)
--- NOTE | 2018-07-17 13:13 | PN ---
Progress Note, Physician Chief Complaint: abdominal pain History of Present Illness: 53yo female wiht PMH HTN, DM, afib (on eliquis last was 07/13 and cardizem) here today complaining of 2 days of abdominal pain, located worse on the right side of her abdomen. Endorses associated nausea and multiple episodes of vomiting. stable postoperatively. she has been febrile and is non-compliant with diabetic diet (a pint of deniz daaz ice cream was at the bedside) - Current Medication List Current Medications: Active Medications Apixaban (Eliquis -) 5 mg PO BID [facility] Last Admin: 07/17/18 09:45 Dose: 5 mg Metronidazole (Flagyl 500mg Premixed Ivpb -) 500 mg in 100 mls @ 100 mls/hr IVPB Q8H-IV [facility] Last Admin: 07/17/18 09:45 Dose: 100 mls/hr Lactated Ringer's (Lactated Ringers Solution) 1,000 mls @ 125 mls/hr IV ASDIR [facility] Last Admin: 07/17/18 06:12 Dose: 125 mls/hr Meropenem 1 gm/ Dextrose 100 mls @ 200 mls/hr IVPB Q8H-IV [facility] Last Admin: 07/17/18 10:57 Dose: 200 mls/hr Insulin Aspart (Novolog Vial Sliding Scale -) 1 vial SQ [facility]; Protocol Last Admin: 07/17/18 12:28 Dose: 2 units Morphine Sulfate (Morphine Sulfate) 4 mg IVPUSH Q4H PRN PRN Reason: PAIN LEVEL 7 - 10 Last Admin: 07/17/18 11:00 Dose: 4 mg Ondansetron HCl (Zofran Injection) 4 mg IVPUSH Q8H PRN PRN Reason: NAUSEA - Objective Vital Signs: Vital Signs Temperature 99.6 F 07/17/18 10:00 Pulse Rate 119 H 07/17/18 10:00 Respiratory Rate 18 07/17/18 10:00 Blood Pressure 104/48 L 07/17/18 10:00 O2 Sat by Pulse Oximetry (%) 98 07/16/18 22:20 Vital Signs Period Temp Pulse Resp BP Sys/Callahan Pulse Ox Last 24 Hr 97 F-100.7 F 100-136 2-27 13-130/48-88 92-98 Constitutional: Yes: Well Nourished, No Distress, Calm, Obese Eyes: Yes: Conjunctiva Clear, EOM Intact HENT: Yes: Atraumatic, Normocephalic Neck: Yes: Supple, Trachea Midline Cardiovascular: Yes: Tachycardia, S1, S2 Respiratory: Yes: Regular, CTA Bilaterally Gastrointestinal: Yes: Normal Bowel Sounds, Soft, Abdomen, Obese, Tenderness ( incsional). No: Tenderness, Epigastrium, Tenderness, Rebound ...Rectal Exam: Yes: Deferred Genitourinary: No: CVA Tenderness - Left, CVA Tenderness - Right Breast(s): No: Discharge from Nipple, Nipple Inversion Musculoskeletal: No: Muscle Pain, Muscle Weakness Extremities: No: Cool, Cyanosis Edema: No Peripheral Pulses WNL: Yes Peripheral Pulses: Left Radial: 2+, Right Radial: 2+, Left Doralis Pedis: 2+, Right Dorsalis Pedis: 2+, Left Femoral: 2+, Right Femoral: 2+ Integumentary: Yes: Venous Stasis Changes. No: Erythema, Rash, Skin Tear Wound/Incision: Yes: Clean/Dry, Well Approximated, Dressing Dry and Intact Neurological: Yes: Alert, Oriented Psychiatric: Yes: Alert, Oriented Labs: CBC, BMP 07/17/18 05:30 / 05:40 INR, PTT INR 1.27 (0.83-1.09) H 07/15/18 15:00 Problem List - Problems (1) Appendicitis Assessment/Plan: 53 yo with MMP presents with 2 days RLQ pain, tender on exam, WBC 21K, CT confirms periappendiceal standing, 2 days off eloquis, Afib not rate controlled. POD#1 s/p laparoscopic appendectomy for likely a supperative appendicitis. Febrile and tachycardia. She has higher than average potential for intraabdominal abscess. appreciate vascular input for LE wounds. Resume diet as tolerated continue IV antibiotics per ID trend labs OOB and ambulate encourage IS Will follow Code(s): K37 - UNSPECIFIED APPENDICITIS Qualifiers: Appendicitis type: acute appendicitis Acute appendicitis type: with localized peritonitis Appendicitis gangrene presence: without gangrene Appendicitis perforation presence: without perforation Appendicitis abscess presence: without abscess Qualified Code(s): K35.30 - Acute appendicitis with localized peritonitis, without perforation or gangrene (2) NOVA (acute kidney injury) Code(s): N17.9 - ACUTE KIDNEY FAILURE, UNSPECIFIED (3) Afib Code(s): I48.91 - UNSPECIFIED ATRIAL FIBRILLATION Qualifiers: Atrial fibrillation type: paroxysmal Qualified Code(s): I48.0 - Paroxysmal atrial fibrillation (4) Chronic cellulitis Code(s): L03.90 - CELLULITIS, UNSPECIFIED (5) DM2 (diabetes mellitus, type 2) Code(s): E11.9 - TYPE 2 DIABETES MELLITUS WITHOUT COMPLICATIONS Qualifiers: Diabetes mellitus medical terminologist insulin use: with medical terminologist use Diabetes mellitus complication detail: with other circulatory complications (6) Obesity Code(s): E66.9 - OBESITY, UNSPECIFIED Qualifiers: Obesity type: due to excess calories Obesity classification: adult class 3 (BMI >= 40) Serious obesity comorbidity presence: with serious comorbidity Body mass index: BMI 40.0-44.9 Qualified Code(s): E66.01 - Morbid (severe) obesity due to excess calories; Z68.41 - Body mass index (BMI) 40.0-44.9, adult
[2018-07-17 13:39] LABS: ANISOCYTOSIS 2+; MACROCYTOSIS 0; OVALOCYTE 1+; PLATELET ESTIMATE NORMAL
--- NOTE | 2018-07-17 14:08 | PN ---
Progress Note, Physician Chief Complaint: Mild abdominal pain History of Present Illness: 53 year old female with a pmhx of afib on apixaban, dm, htn, and chronic venous insufficiency presenting with abdominal pain and vomiting found to have wbc 21 and concern for appendicitis and started on Abx and planned for surgery. No chest pain or sob. No palpitations. - Current Medication List Current Medications: Active Medications Apixaban (Eliquis -) 5 mg PO BID [facility] Last Admin: 07/17/18 09:45 Dose: 5 mg Metronidazole (Flagyl 500mg Premixed Ivpb -) 500 mg in 100 mls @ 100 mls/hr IVPB Q8H-IV [facility] Last Admin: 07/17/18 09:45 Dose: 100 mls/hr Lactated Ringer's (Lactated Ringers Solution) 1,000 mls @ 125 mls/hr IV ASDIR [facility] Last Admin: 07/17/18 06:12 Dose: 125 mls/hr Meropenem 1 gm/ Dextrose 100 mls @ 200 mls/hr IVPB Q8H-IV [facility] Last Admin: 07/17/18 10:57 Dose: 200 mls/hr Insulin Aspart (Novolog Vial Sliding Scale -) 1 vial SQ [facility]; Protocol Last Admin: 07/17/18 12:28 Dose: 2 units Morphine Sulfate (Morphine Sulfate) 4 mg IVPUSH Q4H PRN PRN Reason: PAIN LEVEL 7 - 10 Last Admin: 07/17/18 11:00 Dose: 4 mg Ondansetron HCl (Zofran Injection) 4 mg IVPUSH Q8H PRN PRN Reason: NAUSEA - Objective Vital Signs: Vital Signs Temperature 99.6 F 07/17/18 10:00 Pulse Rate 119 H 07/17/18 10:00 Respiratory Rate 18 07/17/18 10:00 Blood Pressure 104/48 L 07/17/18 10:00 O2 Sat by Pulse Oximetry (%) 98 07/16/18 22:20 Constitutional: Yes: No Distress Neck: Yes: Supple Cardiovascular: Yes: Pulse Irregular, S1, S2 Respiratory: Yes: CTA Bilaterally Gastrointestinal: Yes: Soft Edema: LLE: Trace, RLE: Trace Labs: CBC, BMP 07/17/18 05:30 07/16/18 05:40 INR, PTT INR 1.27 (0.83-1.09) H 07/15/18 15:00 Problem List - Problems (1) Appendicitis Code(s): K37 - UNSPECIFIED APPENDICITIS Qualifiers: Appendicitis type: acute appendicitis Acute appendicitis type: with localized peritonitis Appendicitis gangrene presence: without gangrene Appendicitis perforation presence: without perforation Appendicitis abscess presence: without abscess Qualified Code(s): K35.30 - Acute appendicitis with localized peritonitis, without perforation or gangrene (2) Afib Code(s): I48.91 - UNSPECIFIED ATRIAL FIBRILLATION Qualifiers: Atrial fibrillation type: paroxysmal Qualified Code(s): I48.0 - Paroxysmal atrial fibrillation Assessment/Plan 53 year old female with a pmhx of afib on apixaban, dm, htn, and chronic venous insufficiency presenting with abdominal pain and vomiting found to have wbc 21 and concern for appendicitis and started on Abx and planned for surgery. No chest pain or sob. No palpitations. Mild NOVA on admission 1) Afib S/p surgery. Allow little elevation in HR given post op and infection. Abx. Pain control IVF's If HR rises than low dose metoprolol 12.5mg q12 -restart apixaban when ok with surgical team.
[2018-07-17] MEDS ORDERED: metoPROLOL SUCCINATE 25 MG TAB.SR.24H (FP) PO SCH (15:00)
[2018-07-18] MEDS ORDERED: PT OWN MED DRAWER 7, Y5N ONE ×3 (01:54→17:17)
[2018-07-18] MEDS: LACTATED RINGERS SOLUTION 1,000 ML IV SCH ×2 (01:58→14:31)
[2018-07-18] MEDS: MEROPENEM 1 GM in DEXTROSE 5%-WATER 100 ML IVPB SCH ×3 (01:58→17:33)
[2018-07-18] MEDS: morphine SULFATE 4 MG/ML VIAL IVPUSH PRN ×4 (02:05→21:27)
[2018-07-18] MEDS: INSULIN SLIDING SCALE (NOVOLOG) 1 VIAL SQ SCH ×4 (06:02→21:26)
--- NOTE | 2018-07-18 07:10 | PN ---
Progress Note, Physician Chief Complaint: abdominal pain History of Present Illness: 53yo female wiht PMH HTN, DM, afib (on eliquis last was 07/13 and cardizem) here today complaining of 2 days of abdominal pain, located worse on the right side of her abdomen. Endorses associated nausea and multiple episodes of vomiting. stable postoperatively. - Current Medication List Current Medications: Active Medications Apixaban (Eliquis -) 5 mg PO BID [facility] Last Admin: 07/17/18 21:22 Dose: Not Given Metronidazole (Flagyl 500mg Premixed Ivpb -) 500 mg in 100 mls @ 100 mls/hr IVPB Q8H-IV [facility] Last Admin: 07/18/18 00:59 Dose: 100 mls/hr Lactated Ringer's (Lactated Ringers Solution) 1,000 mls @ 125 mls/hr IV ASDIR [facility] Last Admin: 07/18/18 01:58 Dose: 125 mls/hr Meropenem 1 gm/ Dextrose 100 mls @ 200 mls/hr IVPB Q8H-IV [facility] Last Admin: 07/18/18 01:58 Dose: 200 mls/hr Insulin Aspart (Novolog Vial Sliding Scale -) 1 vial SQ [facility]; Protocol Last Admin: 07/18/18 06:02 Dose: 2 units Metoprolol Succinate (Toprol Xl -) 12.5 mg PO NOW ONE Stop: 07/18/18 14:59 Metoprolol Succinate (Toprol Xl -) 12.5 mg PO DAILY [facility] Morphine Sulfate (Morphine Sulfate) 4 mg IVPUSH Q4H PRN PRN Reason: PAIN LEVEL 7 - 10 Last Admin: 07/18/18 06:02 Dose: 4 mg Ondansetron HCl (Zofran Injection) 4 mg IVPUSH Q8H PRN PRN Reason: NAUSEA - Objective Vital Signs: Vital Signs Temperature 98.9 F 07/18/18 06:38 Pulse Rate 103 H 07/18/18 06:38 Respiratory Rate 20 07/18/18 06:38 Blood Pressure 91/61 07/18/18 06:38 O2 Sat by Pulse Oximetry (%) 92 L 07/17/18 09:00 Vital Signs Period Temp Pulse Resp BP Sys/Callahan Pulse Ox Last 24 Hr 97.6 F-98.4 F 88-116 18-20 99-115/55-77 94 Constitutional: Yes: Well Nourished, No Distress, Calm, Obese, Other Eyes: Yes: Conjunctiva Clear, EOM Intact HENT: Yes: Atraumatic, Normocephalic Neck: Yes: Supple, Trachea Midline Cardiovascular: Yes: Regular Rate and Rhythm, Tachycardia, S1, S2 Respiratory: Yes: Regular, CTA Bilaterally Gastrointestinal: Yes: Normal Bowel Sounds, Soft, Abdomen, Obese, Tenderness ( incisional). No: Tenderness, Epigastrium, Tenderness, Rebound ...Rectal Exam: Yes: Deferred Genitourinary: No: CVA Tenderness - Left, CVA Tenderness - Right Breast(s): No: Gynecomastia, Nipple Inversion Musculoskeletal: No: Muscle Pain, Muscle Weakness Extremities: No: Cyanosis Edema: No Peripheral Pulses WNL: Yes Peripheral Pulses: Left Radial: 2+, Right Radial: 2+, Left Doralis Pedis: 2+, Right Dorsalis Pedis: 2+, Left Femoral: 2+, Right Femoral: 2+ Integumentary: No: Jaundice, Tattoos Wound/Incision: Yes: Clean/Dry, Well Approximated, Open to air Neurological: Yes: Alert, Oriented Psychiatric: Yes: Alert, Oriented Labs: CBC, BMP / 05:30 / 05:40 INR, PTT INR 1.27 (0.83-1.09) H // 15:00 Problem List - Problems (1) Appendicitis Assessment/Plan: 53 yo with MMP presents with 2 days RLQ pain, tender on exam, WBC 21K, CT confirms periappendiceal standing, 2 days off eloquis, Afib not rate controlled. POD#2 s/p laparoscopic appendectomy for likely a supperative appendicitis. Febrile and tachycardia. She has higher than average potential for intraabdominal abscess. appreciate vascular input for LE wounds. Resume diet as tolerated continue IV antibiotics per ID trend labs OOB and ambulate encourage IS Will follow Code(s): K37 - UNSPECIFIED APPENDICITIS Qualifiers: Appendicitis type: acute appendicitis Acute appendicitis type: with localized peritonitis Appendicitis gangrene presence: without gangrene Appendicitis perforation presence: without perforation Appendicitis abscess presence: without abscess Qualified Code(s): K35.30 - Acute appendicitis with localized peritonitis, without perforation or gangrene (2) NOVA (acute kidney injury) Code(s): N17.9 - ACUTE KIDNEY FAILURE, UNSPECIFIED (3) Afib Code(s): I48.91 - UNSPECIFIED ATRIAL FIBRILLATION Qualifiers: Atrial fibrillation type: paroxysmal Qualified Code(s): I48.0 - Paroxysmal atrial fibrillation (4) Chronic cellulitis Code(s): L03.90 - CELLULITIS, UNSPECIFIED (5) DM2 (diabetes mellitus, type 2) Code(s): E11.9 - TYPE 2 DIABETES MELLITUS WITHOUT COMPLICATIONS Qualifiers: Diabetes mellitus long-term insulin use: with long-term use Diabetes mellitus complication detail: with other circulatory complications (6) Obesity Code(s): E66.9 - OBESITY, UNSPECIFIED Qualifiers: Obesity type: due to excess calories Obesity classification: adult class 3 (BMI >= 40) Serious obesity comorbidity presence: with serious comorbidity Body mass index: BMI 40.0-44.9 Qualified Code(s): E66.01 - Morbid (severe) obesity due to excess calories; Z68.41 - Body mass index (BMI) 40.0-44.9, adult
[2018-07-18 07:31] LABS: BASO % 0.1 % (0-2.0); EOS % 5.1 % (0-4.5); HEMATOCRIT 32.5 % (32.4-45.2); HEMOGLOBIN 10.9 GM/dL (10.7-15.3); LYMPH % 5.8 % (8-40); MCH 28.9 pg (25.7-33.7); MCHC 33.5 g/dl (32.0-36.0); MEAN CELL VOLUME 86.4 fl (80-96); MEAN PLT VOLUME 9.9 fl (7.5-11.1); MONO % 5.1 % (3.8-10.2); NEUT % 83.9 % (42.8-82.8); PLATELET COUNT 230 K/MM3 (134-434); RBC 3.76 M/mm3 (3.60-5.2); RDW 15.7 % (11.6-15.6); WHITE BLOOD COUNT 10.4 K/mm3 (4.0-10.0)
[2018-07-18 08:16] LABS: ALK PHOS 126 U/L (45-117); ANION GAP 8 MMOL/L (8-16); BILIRUBIN,TOTAL 0.4 mg/dL (0.2-1); BLOOD UREA NITROGEN 29 mg/dL (7-18); CALCIUM 8.1 mg/dL (8.5-10.1); CHLORIDE 106 mmol/L (98-107); CO2 21 mmol/L (21-32); CREATININE 1.2 mg/dL (0.55-1.3); GLUCOSE,RANDOM 204 mg/dL (74-106); POTASSIUM 4.3 mmol/L (3.5-5.1); SGOT/AST 30 U/L (15-37); SGPT/ALT 25 U/L (13-61); SODIUM 135 mmol/L (136-145); TOT PROT 5.7 g/dl (6.4-8.2)
[2018-07-18] MEDS: APIXABAN 5 MG TABLET PO SCH ×2 (09:10→21:24)
[2018-07-18] MEDS ORDERED: metoPROLOL SUCCINATE 25 MG TAB.SR.24H (FP) PO SCH (10:00)
--- NOTE | 2018-07-18 10:15 | PN ---
Progress Note, Physician History of Present Illness: feeling better still with some pain - Current Medication List Current Medications: Active Medications Apixaban (Eliquis -) 5 mg PO BID [facility] Last Admin: 07/18/18 09:10 Dose: 5 mg Metronidazole (Flagyl 500mg Premixed Ivpb -) 500 mg in 100 mls @ 100 mls/hr IVPB Q8H-IV [facility] Last Admin: 07/18/18 00:59 Dose: 100 mls/hr Lactated Ringer's (Lactated Ringers Solution) 1,000 mls @ 125 mls/hr IV ASDIR [facility] Last Admin: 07/18/18 01:58 Dose: 125 mls/hr Meropenem 1 gm/ Dextrose 100 mls @ 200 mls/hr IVPB Q8H-IV [facility] Last Admin: 07/18/18 09:10 Dose: 200 mls/hr Insulin Aspart (Novolog Vial Sliding Scale -) 1 vial SQ ACHS [facility]; Protocol Last Admin: 07/18/18 06:02 Dose: 2 units Metoprolol Succinate (Toprol Xl -) 12.5 mg PO NOW ONE Stop: 07/18/18 14:59 Metoprolol Succinate (Toprol Xl -) 12.5 mg PO DAILY [facility] Morphine Sulfate (Morphine Sulfate) 4 mg IVPUSH Q4H PRN PRN Reason: PAIN LEVEL 7 - 10 Last Admin: 07/18/18 06:02 Dose: 4 mg Ondansetron HCl (Zofran Injection) 4 mg IVPUSH Q8H PRN PRN Reason: NAUSEA - Objective Vital Signs: Vital Signs Temperature 98.9 F 07/18/18 06:38 Pulse Rate 103 H 07/18/18 06:38 Respiratory Rate 20 07/18/18 06:38 Blood Pressure 91/61 07/18/18 06:38 O2 Sat by Pulse Oximetry (%) 92 L 07/17/18 09:00 Constitutional: Yes: Calm, Obese Cardiovascular: Yes: Regular Rate and Rhythm Respiratory: Yes: Regular, CTA Bilaterally Gastrointestinal: Yes: Normal Bowel Sounds, Soft Extremities: Yes: Other Integumentary: Yes: Other Wound/Incision: Yes: Dressing Dry and Intact Neurological: Yes: Alert, Oriented Psychiatric: Yes: Alert, Oriented Labs: CBC, BMP 07/18/18 06:10 07/18/18 06:10 INR, PTT INR 1.27 (0.83-1.09) H 07/15/18 15:00 Assessment/Plan Problem List - Problems (1) Appendicitis Code(s): K37 - UNSPECIFIED APPENDICITIS Qualifiers: Appendicitis type: acute appendicitis Acute appendicitis type: with localized peritonitis Appendicitis gangrene presence: without gangrene Appendicitis perforation presence: without perforation Appendicitis abscess presence: without abscess Qualified Code(s): K35.30 - Acute appendicitis with localized peritonitis, without perforation or gangrene (2) NOVA (acute kidney injury) Code(s): N17.9 - ACUTE KIDNEY FAILURE, UNSPECIFIED (3) Afib Code(s): I48.91 - UNSPECIFIED ATRIAL FIBRILLATION Qualifiers: Atrial fibrillation type: paroxysmal Qualified Code(s): I48.0 - Paroxysmal atrial fibrillation (4) Chronic cellulitis Code(s): L03.90 - CELLULITIS, UNSPECIFIED (5) DM2 (diabetes mellitus, type 2) Code(s): E11.9 - TYPE 2 DIABETES MELLITUS WITHOUT COMPLICATIONS Qualifiers: Diabetes mellitus shelter insulin use: with shelter use Diabetes mellitus complication detail: with other circulatory complications (6) Obesity Code(s): E66.9 - OBESITY, UNSPECIFIED Qualifiers: Obesity type: due to excess calories Obesity classification: adult class 3 (BMI >= 40) Serious obesity comorbidity presence: with serious comorbidity Body mass index: BMI 40.0-44.9 Qualified Code(s): E66.01 - Morbid (severe) obesity due to excess calories; Z68.41 - Body mass index (BMI) 40.0-44.9, adult 7 b/l wound infection of both legs plan continue abx wound care rest as per the team and surgery
--- NOTE | 2018-07-18 14:36 | PN ---
Progress Note, Physician Chief Complaint: Appendicitis S/p lap appendectomy History of Present Illness: Previous notes and events reviewed awake and alert tachycardic with HR 115, denies chest pain POD #2 s/p lap appendectomy denies abdominal pain, nausea, vomiting complain of constipation c/o productive cough with yellow sputum - Current Medication List Current Medications: Active Medications Apixaban (Eliquis -) 5 mg PO BID [facility] Last Admin: 07/18/18 09:10 Dose: 5 mg Metronidazole (Flagyl 500mg Premixed Ivpb -) 500 mg in 100 mls @ 100 mls/hr IVPB Q8H-IV [facility] Last Admin: 07/18/18 11:06 Dose: 100 mls/hr Lactated Ringer's (Lactated Ringers Solution) 1,000 mls @ 125 mls/hr IV ASDIR [facility] Last Admin: 07/18/18 01:58 Dose: 125 mls/hr Meropenem 1 gm/ Dextrose 100 mls @ 200 mls/hr IVPB Q8H-IV [facility] Last Admin: 07/18/18 09:10 Dose: 200 mls/hr Insulin Aspart (Novolog Vial Sliding Scale -) 1 vial SQ ACHS [facility]; Protocol Last Admin: 07/18/18 11:32 Dose: 2 units Metoprolol Succinate (Toprol Xl -) 12.5 mg PO NOW ONE Stop: 07/18/18 14:59 Last Admin: 07/18/18 14:29 Dose: Not Given Morphine Sulfate (Morphine Sulfate) 4 mg IVPUSH Q4H PRN PRN Reason: PAIN LEVEL 7 - 10 Last Admin: 07/18/18 06:02 Dose: 4 mg Ondansetron HCl (Zofran Injection) 4 mg IVPUSH Q8H PRN PRN Reason: NAUSEA - Objective Vital Signs: Vital Signs Temperature 98.1 F 07/18/18 10:00 Pulse Rate 115 H 07/18/18 10:00 Respiratory Rate 20 07/18/18 10:00 Blood Pressure 86/44 L 07/18/18 10:00 O2 Sat by Pulse Oximetry (%) 92 L 07/17/18 09:00 Constitutional: Yes: No Distress, Calm, Obese Eyes: Yes: Conjunctiva Clear Cardiovascular: Yes: Tachycardia, Pulse Irregular Respiratory: Yes: Regular, CTA Bilaterally Gastrointestinal: Yes: Normal Bowel Sounds, Soft, Abdomen, Obese, Tenderness ( epigastric) Musculoskeletal: Yes: Muscle Weakness Extremities: Yes: WNL Edema: Yes (B/L lower extremity) Wound/Incision: Yes: Dressing Dry and Intact Neurological: Yes: Alert, Oriented Psychiatric: Yes: Alert, Oriented Labs: CBC, BMP 07/18/18 06:10 07/18/18 06:10 INR, PTT INR 1.27 (0.83-1.09) H 07/15/18 15:00 <Marlene Gonzales - Last Filed: 07/18/18 14:31> - Current Medication List Current Medications: Active Medications Apixaban (Eliquis -) 5 mg PO BID [facility] Last Admin: 07/18/18 21:24 Dose: 5 mg Digoxin (Lanoxin -) 0.125 mg PO DAILY [facility] Metronidazole (Flagyl 500mg Premixed Ivpb -) 500 mg in 100 mls @ 100 mls/hr IVPB Q8H-IV [facility] Last Admin: 07/18/18 18:45 Dose: 100 mls/hr Lactated Ringer's (Lactated Ringers Solution) 1,000 mls @ 125 mls/hr IV ASDIR [facility] Last Admin: 07/18/18 14:31 Dose: 125 mls/hr Meropenem 1 gm/ Dextrose 100 mls @ 200 mls/hr IVPB Q8H-IV [facility] Last Admin: 07/18/18 17:33 Dose: 200 mls/hr Insulin Aspart (Novolog Vial Sliding Scale -) 1 vial SQ [facility]; Protocol Last Admin: 07/18/18 21:26 Dose: 6 units Insulin Detemir (Levemir Vial) 25 units SQ DAILY@0700 [facility] Insulin Detemir (Levemir Vial) 15 units SQ HS [facility] Last Admin: 07/18/18 21:24 Dose: 15 units Morphine Sulfate (Morphine Sulfate) 4 mg IVPUSH Q4H PRN PRN Reason: PAIN LEVEL 7 - 10 Last Admin: 07/18/18 21:27 Dose: 4 mg Ondansetron HCl (Zofran Injection) 4 mg IVPUSH Q8H PRN PRN Reason: NAUSEA Polyethylene Glycol (Miralax (For Daily Use) -) 17 gm PO DAILY [facility] - Objective Vital Signs: Vital Signs Temperature 98.4 F 07/18/18 17:45 Pulse Rate 116 H 07/18/18 17:45 Respiratory Rate 20 07/18/18 17:45 Blood Pressure 111/65 07/18/18 17:45 O2 Sat by Pulse Oximetry (%) 93 L 07/18/18 09:00 Labs: CBC, BMP 07/18/18 06:10 07/18/18 06:10 INR, PTT INR 1.27 (0.83-1.09) H 07/15/18 15:00 <Onur Maxwell - Last Filed: 07/18/18 22:18> Problem List - Problems (1) HTN (hypertension) Assessment/Plan: -low Na diet Code(s): I10 - ESSENTIAL (PRIMARY) HYPERTENSION (2) Appendicitis Assessment/Plan: -surgery on board -POD #2 s/p lap appendectomy -continue with IV flagyl and merapenem -pain management -incentive spirometer -PT order Code(s): K37 - UNSPECIFIED APPENDICITIS Qualifiers: Appendicitis type: acute appendicitis Acute appendicitis type: with localized peritonitis Appendicitis gangrene presence: without gangrene Appendicitis perforation presence: without perforation Appendicitis abscess presence: without abscess Qualified Code(s): K35.30 - Acute appendicitis with localized peritonitis, without perforation or gangrene (3) NOVA (acute kidney injury) Assessment/Plan: -current BUN/Cr 29/1.2 -will monitor renal function -if continue elevation will consult renal Code(s): N17.9 - ACUTE KIDNEY FAILURE, UNSPECIFIED (4) Abdominal pain Assessment/Plan: -surgery and GI on board -pain management Code(s): R10.9 - UNSPECIFIED ABDOMINAL PAIN (5) Afib Assessment/Plan: -restarted on Eliquis 5mg BID -continue to be tachycardic with HR 115, will add digoxin 0.125mg PO QD and discontinue metoprolol 12.5mg -cardiology on board Code(s): I48.91 - UNSPECIFIED ATRIAL FIBRILLATION Qualifiers: Atrial fibrillation type: paroxysmal Qualified Code(s): I48.0 - Paroxysmal atrial fibrillation (6) DM2 (diabetes mellitus, type 2) Assessment/Plan: -HgA1c 11.0% -BGM ACHS, ISS -endo consult -diabetic diet Code(s): E11.9 - TYPE 2 DIABETES MELLITUS WITHOUT COMPLICATIONS Qualifiers: Diabetes mellitus senior living insulin use: with senior living use Diabetes mellitus complication detail: with other circulatory complications (7) Leukocytosis Assessment/Plan: -flagyl and merapenem IVPB -ID on board -WBC 10.4, will continue to monitor Code(s): D72.829 - ELEVATED WHITE BLOOD CELL COUNT, UNSPECIFIED (8) Ulcers of both lower extremities Assessment/Plan: -vascular consult -daily dressing changes Code(s): L97.919 - NON-PRS CHRONIC ULC UNSP PRT OF R LOW LEG W UNSP SEVERITY; L97.929 - NON-PRS CHRONIC ULC UNSP PRT OF L LOW LEG W UNSP SEVERITY Qualifiers: Non-pressure ulcer stage: unspecified non-pressure ulcer stage Qualified Code(s): L97.919 - Non-pressure chronic ulcer of unspecified part of right lower leg with unspecified severity; L97.929 - Non-pressure chronic ulcer of unspecified part of left lower leg with unspecified severity; L97.929 - Non- pressure chronic ulcer of unspecified part of left lower leg with unspecified severity; L97.929 - Non-pressure chronic ulcer of unspecified part of left lower leg with unspecified severity; L97.929 - Non-pressure chronic ulcer of unspecified part of left lower leg with unspecified severity (9) Constipation Assessment/Plan: -will start on miralax daily Code(s): K59.00 - CONSTIPATION, UNSPECIFIED <Marlene Gonzales - Last Filed: 07/18/18 14:31> Assessment/Plan see problem list dvt ppx PT <Marlene Gonzales - Last Filed: 07/18/18 14:31>
--- NOTE | 2018-07-18 14:40 | PN ---
Progress Note, Physician Chief Complaint: Comfortable lying in bed History of Present Illness: 53 year old female with a pmhx of afib on apixaban, dm, htn, and chronic venous insufficiency presenting with abdominal pain and vomiting found to have wbc 21 and concern for appendicitis and started on Abx and planned for surgery. No chest pain or sob. No palpitations. - Current Medication List Current Medications: Active Medications Apixaban (Eliquis -) 5 mg PO BID [facility] Last Admin: 07/18/18 09:10 Dose: 5 mg Digoxin (Lanoxin -) 0.125 mg PO DAILY [facility] Metronidazole (Flagyl 500mg Premixed Ivpb -) 500 mg in 100 mls @ 100 mls/hr IVPB Q8H-IV [facility] Last Admin: 07/18/18 11:06 Dose: 100 mls/hr Lactated Ringer's (Lactated Ringers Solution) 1,000 mls @ 125 mls/hr IV ASDIR [facility] Last Admin: 07/18/18 14:31 Dose: 125 mls/hr Meropenem 1 gm/ Dextrose 100 mls @ 200 mls/hr IVPB Q8H-IV [facility] Last Admin: 07/18/18 09:10 Dose: 200 mls/hr Insulin Aspart (Novolog Vial Sliding Scale -) 1 vial SQ ACHS [facility]; Protocol Last Admin: 07/18/18 11:32 Dose: 2 units Metoprolol Succinate (Toprol Xl -) 12.5 mg PO NOW ONE Stop: 07/18/18 14:59 Last Admin: 07/18/18 14:29 Dose: Not Given Morphine Sulfate (Morphine Sulfate) 4 mg IVPUSH Q4H PRN PRN Reason: PAIN LEVEL 7 - 10 Last Admin: 07/18/18 14:30 Dose: 4 mg Ondansetron HCl (Zofran Injection) 4 mg IVPUSH Q8H PRN PRN Reason: NAUSEA Polyethylene Glycol (Miralax (For Daily Use) -) 17 gm PO DAILY [facility] - Objective Vital Signs: Vital Signs Temperature 98.1 F 07/18/18 10:00 Pulse Rate 115 H 07/18/18 10:00 Respiratory Rate 20 07/18/18 10:00 Blood Pressure 86/44 L 07/18/18 10:00 O2 Sat by Pulse Oximetry (%) 92 L 07/17/18 09:00 Constitutional: Yes: No Distress Neck: Yes: Supple Cardiovascular: Yes: Pulse Irregular, S1, S2 Respiratory: Yes: CTA Bilaterally Gastrointestinal: Yes: Soft Edema: LLE: Trace, RLE: Trace Labs: CBC, BMP 07/18/18 06:10 07/18/18 06:10 INR, PTT INR 1.27 (0.83-1.09) H 07/15/18 15:00 Problem List - Problems (1) Appendicitis Code(s): K37 - UNSPECIFIED APPENDICITIS Qualifiers: Qualified Code(s): K35.30 - Acute appendicitis with localized peritonitis, without perforation or gangrene (2) Afib Code(s): I48.91 - UNSPECIFIED ATRIAL FIBRILLATION Qualifiers: Qualified Code(s): I48.0 - Paroxysmal atrial fibrillation Assessment/Plan 53 year old female with a pmhx of afib on apixaban, dm, htn, and chronic venous insufficiency presenting with abdominal pain and vomiting found to have wbc 21 and concern for appendicitis and started on Abx and planned for surgery. No chest pain or sob. No palpitations. Mild NOVA on admission 1) Afib -post op care Pain control Reviewed old chart and was started on digoxin last admission given difficulty with low bp and metoprolol. Would hold metoprolol Restart digoxin 0.125mg daily On apixaban for AC
[2018-07-18] MEDS ORDERED: metoPROLOL SUCCINATE 25 MG TAB.SR.24H (FP) PO ONE (14:58)
--- NOTE | 2018-07-18 15:03 | EKG ---
Test Reason : Blood Pressure : / mmHG Vent. Rate : 113 BPM Atrial Rate : 110 BPM P-R Int : 000 ms QRS Dur : 080 ms QT Int : 316 ms P-R-T Axes : 000 026 023 degrees QTc Int : 433 ms ATRIAL FIBRILLATION WITH RAPID VENTRICULAR RESPONSE WITH PREMATURE VENTRICULAR OR ABERRANTLY CONDUCTED COMPLEXES LOW VOLTAGE QRS ABNORMAL ECG WHEN COMPARED WITH ECG OF 15-JUL-2018 09:08, NO SIGNIFICANT CHANGE WAS FOUND Confirmed by ISI GOMEZ, GIFTY ([id number]) on 07/18/2018 3:03:32 PM Referred By: Confirmed By:GIFTY SNOWDEN MD
--- NOTE | 2018-07-18 17:11 | CONSULT ---
Consult Consult Specialty:: endocrine Referred by:: ailyn keith Reason for Consultation:: diabetes mellitus hyperglycemia - History of Present Illness Chief Complaint: high sugars History of Present Illness: 53F with history oDM 2,Morbid obesity,HTN afib, admitted for abdominal pain, located worse on the right side of her abdomen. she had nausea and multiple episodes of vomiting. found to have acute appendicitis,sp appendectomy,post op feeling better appetite improved sugars have been high in past despite not eating well. - Past Medical History Cardio/Vascular: Yes: AFIB, HTN Pulmonary: Yes: Asthma Gastrointestinal: Yes: GERD, Other (gallstone that passed) Hepatobiliary: Yes: Cholelithiasis (passed without surgery), Other (fatty liver) Renal/: Yes: Renal Inusuff Infectious Disease: Yes: Other (LE cellulitis) Psych: Yes: Bipolar Endocrine: Yes: Diabetes Mellitus Dermatology: Yes: Cellulitis (b/l LE with ulcerations) Additional Medical History: Morbid obesity - Past Surgical History Additional Surgical History: lower extremity ulcer debridements - Alcohol/Substance Use Hx Alcohol Use: Yes (only on hoildays) History of Substance Use: reports: Prescription (narcotics) - Smoking History Smoking history: Former smoker Have you smoked in the past 12 months: No Aproximately how many cigarettes per day: 0 If you are a former smoker, when did you quit?: quit age 13 - Social History Usual Living Arrangement: Alone ADL: Independent 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 History of Recent Travel: No Home Medications - Allergies Allergies/Adverse Reactions: Allergies Allergy/AdvReac Type Severity Reaction Status Date / Time nut - unspecified Allergy Verified 07/15/18 08:18 Penicillins Allergy Verified 07/15/18 08:18 walnut Allergy Verified 07/15/18 08:18 - Home Medications Home Medications: Ambulatory Orders Budesonide/Formeterol Fumarate [SYMBICORT 80/4.5mcg -] 2 puff IH BID inhaler Insulin Sliding Scale [Novolog Vial Sliding Scale -] 1 vial SQ ACHS units 02/20 Apixaban [Eliquis -] 5 mg PO BID tablet 07/04/17 Pantoprazole Sodium [Protonix -] 40 mg PO DAILY tablet.ec 07/04/17 Enalapril Maleate 2.5 mg PO DAILY 07/15/18 Furosemide 40 mg PO ASDIR 07/15/18 Gabapentin 300 mg PO DAILY 07/15/18 Meloxicam 15 mg PO DAILY 07/15/18 Naproxen Sodium 550 mg PO DAILY 07/15/18 Potassium Chloride 10 meq PO DAILY 07/15/18 Tramadol HCl 50 mg PO PRN 07/15/18 Family Disease History - Family Disease History Family Disease History: Other: Father ( age 50 CVA), Mother ( 82 ), Brother (stomach cancer), Sister (breast cancer) Review of Systems - Review of Systems Constitutional: reports: Lethargy, Weakness Eyes: reports: Blurred Vision HENT: reports: No Symptoms Neck: reports: No Symptoms Cardiovascular: reports: No Symptoms Respiratory: reports: Exercise Intolerance, SOB on Exertion Gastrointestinal: reports: Bloating, Constipation Genitourinary: reports: No Symptoms Musculoskeletal: reports: Joint Pain Neurological: reports: Numbness, Weakness Endocrine: reports: Unexplained Weight Gain Physical Exam Vital Signs: Vital Signs Temperature 98.2 F 07/18/18 14:58 Pulse Rate 108 H 07/18/18 14:58 Respiratory Rate 20 07/18/18 14:58 Blood Pressure 101/55 L 07/18/18 14:58 O2 Sat by Pulse Oximetry (%) 93 L 07/18/18 09:00 Constitutional: Yes: Calm Eyes: Yes: EOM Intact HENT: Yes: Normocephalic Neck: Yes: Trachea Midline Cardiovascular: Yes: Regular Rate and Rhythm Respiratory: Yes: CTA Bilaterally Gastrointestinal: Yes: Abdomen, Obese, Hypoactive Bowel Sounds ...Rectal Exam: Yes: Deferred Renal/: Yes: WNL Extremities: Yes: Delayed Capillary Refill, Erythema Edema: LLE: 1+, RLE: 1+ Integumentary: Yes: Pressure Ulcer, Venous Stasis Changes Wound/Incision: Yes: Dressing Dry and Intact Neurological: Yes: Alert, Oriented Labs: CBC, BMP 07/18/18 06:10 07/18/18 06:10 Assessment/Plan Current Active Problems diabetes mellitus hyperglycemia polyneuropathy Appendicitis (Acute) Constipation (Acute) Family history of GI tract cancer (Acute) Fatty (change of) liver, not elsewhere classified (Acute) HTN (hypertension) (Acute) Suppurative appendicitis (Acute) Abnormal Lab Results 07/18/18 07/18/18 06:10 06:10 WBC 10.4 H RDW 15.7 H Absolute Neuts (auto) 8.7 H Neutrophils % 83.9 H Lymphocytes % 5.8 L D Eosinophils % 5.1 H D Sodium 135 L BUN 29 H Random Glucose 204 H Calcium 8.1 L Alkaline Phosphatase 126 H Total Protein 5.7 L Albumin 2.0 L Laboratory Results - last 24 hr 07/17/18 07/17/18 07/18/18 17:40 20:38 05:27 WBC RBC Hgb Hct MCV MCH MCHC RDW Plt Count MPV Absolute Neuts (auto) Neutrophils % Lymphocytes % Monocytes % Eosinophils % Basophils % Nucleated RBC % Sodium Potassium Chloride Carbon Dioxide Anion Gap BUN Creatinine Creat Clearance w eGFR POC Glucometer 306 222 220 Random Glucose Calcium Total Bilirubin AST ALT Alkaline Phosphatase Total Protein Albumin 07/18/18 07/18/18 07/18/18 06:10 06:10 11:31 WBC 10.4 H RBC 3.76 Hgb 10.9 Hct 32.5 MCV 86.4 MCH 28.9 MCHC 33.5 RDW 15.7 H Plt Count 230 MPV 9.9 Absolute Neuts (auto) 8.7 H Neutrophils % 83.9 H Lymphocytes % 5.8 L D Monocytes % 5.1 D Eosinophils % 5.1 H D Basophils % 0.1 Nucleated RBC % 0 Sodium 135 L Potassium 4.3 Chloride 106 Carbon Dioxide 21 Anion Gap 8 BUN 29 H Creatinine 1.2 Creat Clearance w eGFR 46.64 POC Glucometer 237 Random Glucose 204 H Calcium 8.1 L Total Bilirubin 0.4 AST 30 ALT 25 Alkaline Phosphatase 126 H Total Protein 5.7 L Albumin 2.0 L plan: bgm qid novolog insulin doses levemir bid doses ck hba1c
[2018-07-18] MEDS ORDERED: INSULIN (NOVOLOG) ASPART 100 UNITS/ML 10ML VIAL ONE (17:17)
--- NOTE | 2018-07-18 18:26 | PATH ---
Surgical Pathology Report Patient Name: SANA MARQUIS Med. Rec. #: [id number] /Age/Gender: 1965 (Age: 53) / F Account: [id number] Location: [facility]URG Taken: 07/16/2018 Received: 07/17/2018 Reported: 07/18/2018 Physicians: Roselia Smith M.D. Specimen(s) Received APPENDIX Clinical History Acute appendicitis Final Diagnosis APPENDIX, LAPAROSCOPIC APPENDECTOMY: ACUTE APPENDICITIS. Electronically Signed Renea Hutchinson M.D. Gross Description Received in formalin, labeled "appendix," is a 7.5 cm. in length vermiform appendix with a stapled margin of resection and abundant attached fat. The serosa is ferguson-pink with attached exudate. Sectioning reveals an unremarkable lumen. The wall of the appendix averages 0.1 cm. in thickness. Improvement Specialist sections are submitted in one cassette. /07/17/2018 saudi07/17/2018
[2018-07-18] MEDS: INSULIN (LEVEMIR) 100 UNITS/ML UNITS SQ SCH (21:24)
[2018-07-19] MEDS: LACTATED RINGERS SOLUTION 1,000 ML IV SCH (00:54)
[2018-07-19] MEDS: MEROPENEM 1 GM in DEXTROSE 5%-WATER 100 ML IVPB SCH ×3 (03:14→13:25)
[2018-07-19] MEDS: INSULIN (LEVEMIR) 100 UNITS/ML UNITS SQ SCH ×2 (06:18→21:50)
[2018-07-19] MEDS: INSULIN SLIDING SCALE (NOVOLOG) 1 VIAL SQ SCH ×4 (06:18→21:50)
[2018-07-19] MEDS: morphine SULFATE 4 MG/ML VIAL IVPUSH PRN ×2 (06:19→16:42)
[2018-07-19 08:23] LABS: HEMATOCRIT 34.7 % (32.4-45.2); HEMOGLOBIN 11.4 GM/dL (10.7-15.3); MCH 28.7 pg (25.7-33.7); MEAN CELL VOLUME 86.9 fl (80-96); MEAN PLT VOLUME 10.1 fl (7.5-11.1); PLATELET COUNT 270 K/MM3 (134-434); RBC 3.99 M/mm3 (3.60-5.2); RDW 16.2 % (11.6-15.6); WHITE BLOOD COUNT 9.2 K/mm3 (4.0-10.0)
[2018-07-19 09:07] LABS: ALBUMIN 2.2 g/dl (3.4-5.0); ALK PHOS 126 U/L (45-117); ANION GAP 9 MMOL/L (8-16); BILIRUBIN,TOTAL 0.2 mg/dL (0.2-1); BLOOD UREA NITROGEN 22 mg/dL (7-18); CALCIUM 8.3 mg/dL (8.5-10.1); CHLORIDE 107 mmol/L (98-107); CO2 21 mmol/L (21-32); CREATININE 1.1 mg/dL (0.55-1.3); GLUCOSE,RANDOM 153 mg/dL (74-106); POTASSIUM 4.4 mmol/L (3.5-5.1); SGOT/AST 21 U/L (15-37); SGPT/ALT 23 U/L (13-61); SODIUM 137 mmol/L (136-145); TOT PROT 5.9 g/dl (6.4-8.2)
[2018-07-19 10:13] LABS: ALPHA 2 MACROGLOBULINS,QN 105 mg/dL (110-276); ALT(SGPT)P5P 23 IU/L (0-40); CHOLESTEROL TOTAL 94 mg/dL (100-199); FIBROSIS SCORE 0.05 (0.00-0.21); GGT= 22 IU/L (0-60); GLUCOSE SERUM 242 mg/dL (65-99); HEIGHT 65 in (.); WEIGHT- 303 LBS (.)
[2018-07-19] MEDS ORDERED: PT OWN MED DRAWER 7, Y5N ONE (10:20)
--- NOTE | 2018-07-19 10:56 | PN ---
Progress Note, Physician Chief Complaint: Appendicitis History of Present Illness: Seen by Surgery+ ID On IV abx for supparative appendicitis still some pain - Current Medication List Current Medications: Active Medications Apixaban (Eliquis -) 5 mg PO BID [facility] Last Admin: 07/18/18 21:24 Dose: 5 mg Digoxin (Lanoxin -) 0.125 mg PO DAILY [facility] Metronidazole (Flagyl 500mg Premixed Ivpb -) 500 mg in 100 mls @ 100 mls/hr IVPB Q8H-IV [facility] Last Admin: 07/19/18 01:02 Dose: Not Given Lactated Ringer's (Lactated Ringers Solution) 1,000 mls @ 125 mls/hr IV ASDIR [facility] Last Admin: 07/19/18 00:54 Dose: 125 mls/hr Meropenem 1 gm/ Dextrose 100 mls @ 200 mls/hr IVPB Q8H-IV [facility] Last Admin: 07/19/18 03:14 Dose: 200 mls/hr Insulin Aspart (Novolog Vial Sliding Scale -) 1 vial SQ [facility]; Protocol Last Admin: 07/19/18 06:18 Dose: 5 units Insulin Detemir (Levemir Vial) 25 units SQ DAILY@0700 [facility] Last Admin: 07/19/18 06:18 Dose: 25 units Insulin Detemir (Levemir Vial) 15 units SQ HS [facility] Last Admin: 07/18/18 21:24 Dose: 15 units Morphine Sulfate (Morphine Sulfate) 4 mg IVPUSH Q4H PRN PRN Reason: PAIN LEVEL 7 - 10 Last Admin: 07/19/18 06:19 Dose: 4 mg Ondansetron HCl (Zofran Injection) 4 mg IVPUSH Q8H PRN PRN Reason: NAUSEA Polyethylene Glycol (Miralax (For Daily Use) -) 17 gm PO DAILY [facility] - Objective Vital Signs: Vital Signs Temperature 98.1 F 07/19/18 07:04 Pulse Rate 103 H 07/19/18 07:04 Respiratory Rate 20 07/19/18 07:04 Blood Pressure 112/70 07/19/18 07:04 O2 Sat by Pulse Oximetry (%) 94 L 07/18/18 21:00 Constitutional: Yes: Well Nourished, No Distress, Calm, Obese Cardiovascular: Yes: Regular Rate and Rhythm Respiratory: Yes: Regular Gastrointestinal: Yes: Normal Bowel Sounds, Soft, Abdomen, Obese Musculoskeletal: Yes: WNL Extremities: Yes: WNL Edema: No Peripheral Pulses WNL: Yes Neurological: Yes: Alert, Oriented Psychiatric: Yes: Alert, Oriented Labs: CBC, BMP 07/19/18 05:55 07/19/18 05:55 INR, PTT INR 1.27 (0.83-1.09) H 07/15/18 15:00 Problem List - Problems (1) Constipation Assessment/Plan: -Miralax daily Code(s): K59.00 - CONSTIPATION, UNSPECIFIED (2) Suppurative appendicitis Assessment/Plan: -surgery on board -POD #3 s/p lap appendectomy -continue with IV flagyl and merapenem -pain management -incentive spirometer -PT order Code(s): K35.80 - UNSPECIFIED ACUTE APPENDICITIS (3) NOVA (acute kidney injury) Assessment/Plan: -current BUN/Cr 29/1.2 -will monitor renal function -if continue elevation will consult renal Code(s): N17.9 - ACUTE KIDNEY FAILURE, UNSPECIFIED (4) Afib Assessment/Plan: -Eliquis -Rate better controlled today -Was unable to tolerate metoprolol due to hypotension -Dig Code(s): I48.91 - UNSPECIFIED ATRIAL FIBRILLATION Qualifiers: Atrial fibrillation type: paroxysmal Qualified Code(s): I48.0 - Paroxysmal atrial fibrillation (5) DM2 (diabetes mellitus, type 2) Assessment/Plan: -A1c 11.0 -Endocrinology on board -BGM ACHS -Insulin-Novolog+Levemir -diabetic low sodium diet Code(s): E11.9 - TYPE 2 DIABETES MELLITUS WITHOUT COMPLICATIONS Qualifiers: 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: with ferry terminal supervisor use Diabetes mellitus complication detail: with other circulatory complications (6) Morbid obesity Code(s): E66.01 - MORBID (SEVERE) OBESITY DUE TO EXCESS CALORIES (7) Leukocytosis Assessment/Plan: -flagyl and merapenem IVPB -ID on board -monitor trend Code(s): D72.829 - ELEVATED WHITE BLOOD CELL COUNT, UNSPECIFIED (8) Ulcers of both lower extremities Assessment/Plan: -vascular consult -daily dressing changes Code(s): L97.919 - NON-PRS CHRONIC ULC UNSP PRT OF R LOW LEG W UNSP SEVERITY; L97.929 - NON-PRS CHRONIC ULC UNSP PRT OF L LOW LEG W UNSP SEVERITY Qualifiers: Non-pressure ulcer stage: unspecified non-pressure ulcer stage Qualified Code(s): L97.919 - Non-pressure chronic ulcer of unspecified part of right lower leg with unspecified severity; L97.929 - Non-pressure chronic ulcer of unspecified part of left lower leg with unspecified severity; L97.929 - Non- pressure chronic ulcer of unspecified part of left lower leg with unspecified severity; L97.929 - Non-pressure chronic ulcer of unspecified part of left lower leg with unspecified severity; L97.929 - Non-pressure chronic ulcer of unspecified part of left lower leg with unspecified severity Assessment/Plan See problem list Physical therapy
[2018-07-19] MEDS: APIXABAN 5 MG TABLET PO SCH ×2 (11:01→21:47)
[2018-07-19] MEDS: DIGOXIN 0.125 MG TABLET (FP) PO SCH (11:01)
[2018-07-19] MEDS: POLYETHYLENE GLYCOL 3350 119 GM BTL PO SCH (11:02)
--- NOTE | 2018-07-19 11:06 | PN ---
Progress Note, Physician Chief Complaint: abdominal pain History of Present Illness: 53yo female wiht PMH HTN, DM, afib (on eliquis last was 07/13 and cardizem) here today complaining of 2 days of abdominal pain, located worse on the right side of her abdomen. Endorses associated nausea and multiple episodes of vomiting. stable postoperatively. - Current Medication List Current Medications: Active Medications Apixaban (Eliquis -) 5 mg PO BID [facility] Last Admin: 07/19/18 11:01 Dose: 5 mg Digoxin (Lanoxin -) 0.125 mg PO DAILY [facility] Last Admin: 07/19/18 11:01 Dose: 0.125 mg Metronidazole (Flagyl 500mg Premixed Ivpb -) 500 mg in 100 mls @ 100 mls/hr IVPB Q8H-IV [facility] Last Admin: 07/19/18 11:02 Dose: 100 mls/hr Lactated Ringer's (Lactated Ringers Solution) 1,000 mls @ 125 mls/hr IV ASDIR [facility] Last Admin: 07/19/18 00:54 Dose: 125 mls/hr Meropenem 1 gm/ Dextrose 100 mls @ 200 mls/hr IVPB Q8H-IV [facility] Last Admin: 07/19/18 11:02 Dose: 200 mls/hr Insulin Aspart (Novolog Vial Sliding Scale -) 1 vial SQ [facility]; Protocol Last Admin: 07/19/18 06:18 Dose: 5 units Insulin Detemir (Levemir Vial) 25 units SQ DAILY@0700 [facility] Last Admin: 07/19/18 06:18 Dose: 25 units Insulin Detemir (Levemir Vial) 15 units SQ HS [facility] Last Admin: 07/18/18 21:24 Dose: 15 units Morphine Sulfate (Morphine Sulfate) 4 mg IVPUSH Q4H PRN PRN Reason: PAIN LEVEL 7 - 10 Last Admin: 07/19/18 06:19 Dose: 4 mg Ondansetron HCl (Zofran Injection) 4 mg IVPUSH Q8H PRN PRN Reason: NAUSEA Pantoprazole Sodium (Protonix -) 40 mg PO DAILY [facility] Polyethylene Glycol (Miralax (For Daily Use) -) 17 gm PO DAILY [facility] Last Admin: 07/19/18 11:02 Dose: Not Given - Objective Vital Signs: Vital Signs Temperature 97.7 F 07/19/18 10:59 Pulse Rate 96 H 07/19/18 11:01 Respiratory Rate 18 07/19/18 10:59 Blood Pressure 99/56 L 07/19/18 10:59 O2 Sat by Pulse Oximetry (%) 94 L 07/18/18 21:00 Vital Signs Period Temp Pulse Resp BP Sys/Callahan Pulse Ox Last 24 Hr 97.6 F-98.4 F 88-116 18-20 99-115/55-77 94 Constitutional: Yes: Well Nourished, No Distress, Calm, Obese Eyes: Yes: Conjunctiva Clear, EOM Intact HENT: Yes: Atraumatic, Normocephalic Neck: Yes: Supple, Trachea Midline Cardiovascular: Yes: Regular Rate and Rhythm, S1, S2 Respiratory: Yes: Regular, CTA Bilaterally Gastrointestinal: Yes: Normal Bowel Sounds, Soft, Abdomen, Obese. No: Tenderness, Tenderness, Epigastrium, Tenderness, Rebound ...Rectal Exam: Yes: Deferred Genitourinary: No: CVA Tenderness - Left, CVA Tenderness - Right Breast(s): No: Nipple Inversion, Skin Changes, Other Musculoskeletal: No: Muscle Weakness Extremities: No: Cool, Cyanosis Edema: No Peripheral Pulses WNL: Yes Peripheral Pulses: Left Radial: 2+, Right Radial: 2+, Left Doralis Pedis: 2+, Right Dorsalis Pedis: 2+, Left Femoral: 2+, Right Femoral: 2+ Integumentary: No: Jaundice, Skin Tear Neurological: Yes: Alert, Oriented Psychiatric: Yes: Alert, Oriented Labs: CBC, BMP 07/19/18 05:55 07/19/18 05:55 INR, PTT INR 1.27 (0.83-1.09) H 07/15/18 15:00 Problem List - Problems (1) Appendicitis Assessment/Plan: 53 yo with MMP presents with 2 days RLQ pain, tender on exam, WBC 21K, CT confirms periappendiceal standing, 2 days off eloquis, Afib not rate controlled. POD#3 s/p laparoscopic appendectomy for likely a supperative appendicitis. Febrile and tachycardia improving. Pathology is reviewed and confirms disgnosis. Resume diet as tolerated continue IV antibiotics per ID trend labs OOB and ambulate encourage IS Will follow Code(s): K37 - UNSPECIFIED APPENDICITIS Qualifiers: Appendicitis type: acute appendicitis Acute appendicitis type: with localized peritonitis Appendicitis gangrene presence: without gangrene Appendicitis perforation presence: without perforation Appendicitis abscess presence: without abscess Qualified Code(s): K35.30 - Acute appendicitis with localized peritonitis, without perforation or gangrene (2) NOVA (acute kidney injury) Code(s): N17.9 - ACUTE KIDNEY FAILURE, UNSPECIFIED (3) Afib Code(s): I48.91 - UNSPECIFIED ATRIAL FIBRILLATION Qualifiers: Atrial fibrillation type: paroxysmal Qualified Code(s): I48.0 - Paroxysmal atrial fibrillation (4) Chronic cellulitis Code(s): L03.90 - CELLULITIS, UNSPECIFIED (5) DM2 (diabetes mellitus, type 2) Code(s): E11.9 - TYPE 2 DIABETES MELLITUS WITHOUT COMPLICATIONS Qualifiers: Diabetes mellitus terminal makeup operator insulin use: with terminal makeup operator use Diabetes mellitus complication detail: with other circulatory complications (6) Obesity Code(s): E66.9 - OBESITY, UNSPECIFIED Qualifiers: Obesity type: due to excess calories Obesity classification: adult class 3 (BMI >= 40) Serious obesity comorbidity presence: with serious comorbidity Body mass index: BMI 40.0-44.9 Qualified Code(s): E66.01 - Morbid (severe) obesity due to excess calories; Z68.41 - Body mass index (BMI) 40.0-44.9, adult
--- NOTE | 2018-07-19 13:03 | PN ---
Progress Note, Physician History of Present Illness: Pt seen and examined. Erythematous rash noted on abdomen and b/l LE. Remains afebrile, now eating. - Current Medication List Current Medications: Active Medications Apixaban (Eliquis -) 5 mg PO BID [facility] Last Admin: 07/19/18 11:01 Dose: 5 mg Digoxin (Lanoxin -) 0.125 mg PO DAILY [facility] Last Admin: 07/19/18 11:01 Dose: 0.125 mg Metronidazole (Flagyl 500mg Premixed Ivpb -) 500 mg in 100 mls @ 100 mls/hr IVPB Q8H-IV [facility] Last Admin: 07/19/18 11:02 Dose: 100 mls/hr Lactated Ringer's (Lactated Ringers Solution) 1,000 mls @ 125 mls/hr IV ASDIR [facility] Last Admin: 07/19/18 00:54 Dose: 125 mls/hr Levofloxacin (Levaquin 750 Mg Premixed Ivpb -) 750 mg in 150 mls @ 150 mls/hr IVPB DAILY [facility]; Protocol Insulin Aspart (Novolog Vial Sliding Scale -) 1 vial SQ ACHS [facility]; Protocol Last Admin: 07/19/18 06:18 Dose: 5 units Insulin Detemir (Levemir Vial) 25 units SQ DAILY@0700 [facility] Last Admin: 07/19/18 06:18 Dose: 25 units Insulin Detemir (Levemir Vial) 15 units SQ HS [facility] Last Admin: 07/18/18 21:24 Dose: 15 units Morphine Sulfate (Morphine Sulfate) 4 mg IVPUSH Q4H PRN PRN Reason: PAIN LEVEL 7 - 10 Last Admin: 07/19/18 06:19 Dose: 4 mg Ondansetron HCl (Zofran Injection) 4 mg IVPUSH Q8H PRN PRN Reason: NAUSEA Pantoprazole Sodium (Protonix -) 40 mg PO DAILY [facility] Polyethylene Glycol (Miralax (For Daily Use) -) 17 gm PO DAILY [facility] Last Admin: 07/19/18 11:02 Dose: Not Given - Objective Vital Signs: Vital Signs Temperature 97.7 F 07/19/18 10:59 Pulse Rate 96 H 07/19/18 11:01 Respiratory Rate 18 07/19/18 10:59 Blood Pressure 99/56 L 07/19/18 10:59 O2 Sat by Pulse Oximetry (%) 94 L 07/18/18 21:00 Constitutional: Yes: No Distress, Calm Cardiovascular: Yes: Regular Rate and Rhythm Respiratory: Yes: Regular Gastrointestinal: Yes: Normal Bowel Sounds, Soft, Abdomen, Obese, Tenderness ( Tenderness to deep palpation Rt side abd) Integumentary: Yes: Rash Wound/Incision: Yes: Clean/Dry Neurological: Yes: Alert Labs: CBC, BMP 07/19/18 05:55 07/19/18 05:55 INR, PTT INR 1.27 (0.83-1.09) H 07/15/18 15:00 Problem List - Problems (1) HTN (hypertension) Code(s): I10 - ESSENTIAL (PRIMARY) HYPERTENSION (2) Suppurative appendicitis Code(s): K35.80 - UNSPECIFIED ACUTE APPENDICITIS (3) NOVA (acute kidney injury) Code(s): N17.9 - ACUTE KIDNEY FAILURE, UNSPECIFIED (4) Acute renal failure Code(s): N17.9 - ACUTE KIDNEY FAILURE, UNSPECIFIED (5) Afib Code(s): I48.91 - UNSPECIFIED ATRIAL FIBRILLATION Qualifiers: Atrial fibrillation type: paroxysmal Qualified Code(s): I48.0 - Paroxysmal atrial fibrillation (6) Allergic reaction Code(s): T78.40XA - ALLERGY, UNSPECIFIED, INITIAL ENCOUNTER (7) Cellulitis Code(s): L03.90 - CELLULITIS, UNSPECIFIED Qualifiers: Site of cellulitis of extremity: lower extremity Laterality: right (8) DM2 (diabetes mellitus, type 2) Code(s): E11.9 - TYPE 2 DIABETES MELLITUS WITHOUT COMPLICATIONS Qualifiers: Diabetes mellitus chcf insulin use: with logistics intern use Diabetes mellitus complication detail: with other circulatory complications (9) Leukocytosis Code(s): D72.829 - ELEVATED WHITE BLOOD CELL COUNT, UNSPECIFIED (10) Morbid obesity Code(s): E66.01 - MORBID (SEVERE) OBESITY DUE TO EXCESS CALORIES (11) Ulcers of both lower extremities Code(s): L97.919 - NON-PRS CHRONIC ULC UNSP PRT OF R LOW LEG W UNSP SEVERITY; L97.929 - NON-PRS CHRONIC ULC UNSP PRT OF L LOW LEG W UNSP SEVERITY Qualifiers: Non-pressure ulcer stage: unspecified non-pressure ulcer stage Qualified Code(s): L97.919 - Non-pressure chronic ulcer of unspecified part of right lower leg with unspecified severity; L97.929 - Non-pressure chronic ulcer of unspecified part of left lower leg with unspecified severity; L97.929 - Non- pressure chronic ulcer of unspecified part of left lower leg with unspecified severity; L97.929 - Non-pressure chronic ulcer of unspecified part of left lower leg with unspecified severity; L97.929 - Non-pressure chronic ulcer of unspecified part of left lower leg with unspecified severity Assessment/Plan Suppurative appendicitis s/p appendectomy POD#3 b/l LE cellulitis/ulcers Rash - likely due to Meropenem -- d/c Meropenem, start Levaquin, continue Flagyl -- diet being advanced -- no recent odansetron administered, pt without n/v episodes, eating - will d/ c odansetron, monitor -- continue wound care
[2018-07-19] MEDS: PANTOPRAZOLE 40 MG TABLET (FP) PO SCH (13:24)
[2018-07-19] MEDS ORDERED: hydrOXYzine HCL 25 MG TABLET (FP) PO PRN (13:53)
[2018-07-20] MEDS: LACTATED RINGERS SOLUTION 1,000 ML IV SCH (01:42)
[2018-07-20] MEDS: INSULIN SLIDING SCALE (NOVOLOG) 1 VIAL SQ SCH ×4 (06:15→21:08)
[2018-07-20] MEDS: INSULIN (LEVEMIR) 100 UNITS/ML UNITS SQ SCH ×2 (06:15→21:08)
[2018-07-20 08:14] LABS: BASO % 0.5 % (0-2.0); HEMATOCRIT 35.8 % (32.4-45.2); LYMPH % 9.3 % (8-40); MCH 28.8 pg (25.7-33.7); MCHC 33.6 g/dl (32.0-36.0); MEAN CELL VOLUME 85.7 fl (80-96); MEAN PLT VOLUME 9.6 fl (7.5-11.1); MONO % 6.3 % (3.8-10.2); NEUT % 76.9 % (42.8-82.8); PLATELET COUNT 306 K/MM3 (134-434); RBC 4.18 M/mm3 (3.60-5.2); RDW 15.6 % (11.6-15.6); WHITE BLOOD COUNT 9.5 K/mm3 (4.0-10.0)
[2018-07-20 08:42] LABS: ALBUMIN 2.3 g/dl (3.4-5.0); ALK PHOS 124 U/L (45-117); ANION GAP 6 MMOL/L (8-16); BILIRUBIN,TOTAL 0.4 mg/dL (0.2-1); BLOOD UREA NITROGEN 15 mg/dL (7-18); CHLORIDE 110 mmol/L (98-107); CO2 23 mmol/L (21-32); CREATININE 0.9 mg/dL (0.55-1.3); GLUCOSE,RANDOM 183 mg/dL (74-106); POTASSIUM 4.4 mmol/L (3.5-5.1); SGOT/AST 18 U/L (15-37); SGPT/ALT 22 U/L (13-61); SODIUM 139 mmol/L (136-145); TOT PROT 5.9 g/dl (6.4-8.2)
--- NOTE | 2018-07-20 09:37 | PN ---
Progress Note, Physician Chief Complaint: Appendicitis History of Present Illness: Seen by Surgery+ ID On IV abx for supparative appendicitis still some pain - Current Medication List Current Medications: Active Medications Apixaban (Eliquis -) 5 mg PO BID [facility] Last Admin: 07/19/18 21:47 Dose: 5 mg Digoxin (Lanoxin -) 0.125 mg PO DAILY [facility] Last Admin: 07/19/18 11:01 Dose: 0.125 mg Hydroxyzine HCl (Atarax -) 25 mg PO Q6H PRN PRN Reason: FOR ITCHING Metronidazole (Flagyl 500mg Premixed Ivpb -) 500 mg in 100 mls @ 100 mls/hr IVPB Q8H-IV [facility] Last Admin: 07/20/18 01:41 Dose: 100 mls/hr Lactated Ringer's (Lactated Ringers Solution) 1,000 mls @ 125 mls/hr IV ASDIR [facility] Last Admin: 07/20/18 01:42 Dose: 125 mls/hr Levofloxacin (Levaquin 750 Mg Premixed Ivpb -) 750 mg in 150 mls @ 150 mls/hr IVPB DAILY@1800 [facility]; Protocol Last Admin: 07/19/18 17:20 Dose: 150 mls/hr Insulin Aspart (Novolog Vial Sliding Scale -) 1 vial SQ ACHS [facility]; Protocol Last Admin: 07/20/18 06:15 Dose: Not Given Insulin Detemir (Levemir Vial) 25 units SQ DAILY@0700 [facility] Last Admin: 07/20/18 06:15 Dose: Not Given Insulin Detemir (Levemir Vial) 15 units SQ HS [facility] Last Admin: 07/19/18 21:50 Dose: 15 units Morphine Sulfate (Morphine Sulfate) 4 mg IVPUSH Q4H PRN PRN Reason: PAIN LEVEL 7 - 10 Last Admin: 07/19/18 16:42 Dose: 4 mg Ondansetron HCl (Zofran Injection) 4 mg IVPUSH Q8H PRN PRN Reason: NAUSEA Pantoprazole Sodium (Protonix -) 40 mg PO DAILY [facility] Last Admin: 07/19/18 13:24 Dose: 40 mg Polyethylene Glycol (Miralax (For Daily Use) -) 17 gm PO DAILY [facility] Last Admin: 07/19/18 11:02 Dose: Not Given - Objective Vital Signs: Vital Signs Temperature 97.8 F 07/20/18 06:00 Pulse Rate 92 H 07/20/18 06:00 Respiratory Rate 20 07/20/18 06:00 Blood Pressure 144/92 07/20/18 06:00 O2 Sat by Pulse Oximetry (%) 94 L 07/19/18 21:00 Constitutional: Yes: Well Nourished, No Distress, Calm Cardiovascular: Yes: Regular Rate and Rhythm Respiratory: Yes: Regular Gastrointestinal: Yes: Normal Bowel Sounds, Soft, Abdomen, Obese Musculoskeletal: Yes: WNL Extremities: Yes: WNL Edema: No Peripheral Pulses WNL: Yes Neurological: Yes: Alert, Oriented Psychiatric: Yes: Alert, Oriented Labs: CBC, BMP 07/20/18 07:10 07/20/18 07:10 INR, PTT INR 1.27 (0.83-1.09) H 07/15/18 15:00 Problem List - Problems (1) Constipation Assessment/Plan: -Miralax daily Code(s): K59.00 - CONSTIPATION, UNSPECIFIED (2) Suppurative appendicitis Assessment/Plan: -surgery on board -s/p lap appendectomy -itching 2/2 to meropenem -Seen by ID, abx changed -continue with IV flagyl and levaquin -pain management -incentive spirometer -PT order Code(s): K35.80 - UNSPECIFIED ACUTE APPENDICITIS (3) NOVA (acute kidney injury) Assessment/Plan: -current BUN/Cr 29/1.2 -will monitor renal function -if continue elevation will consult renal Code(s): N17.9 - ACUTE KIDNEY FAILURE, UNSPECIFIED (4) Afib Assessment/Plan: -Eliquis -Rate better controlled today -Was unable to tolerate metoprolol due to hypotension -Dig Code(s): I48.91 - UNSPECIFIED ATRIAL FIBRILLATION Qualifiers: Atrial fibrillation type: paroxysmal Qualified Code(s): I48.0 - Paroxysmal atrial fibrillation (5) DM2 (diabetes mellitus, type 2) Assessment/Plan: -A1c 11.0 -Endocrinology on board -BG ACHS -Insulin-Novolog+Levemir -diabetic low sodium diet Code(s): E11.9 - TYPE 2 DIABETES MELLITUS WITHOUT COMPLICATIONS Qualifiers: Diabetes mellitus residential insulin use: with residential use Diabetes mellitus complication detail: with other circulatory complications (6) Morbid obesity Code(s): E66.01 - MORBID (SEVERE) OBESITY DUE TO EXCESS CALORIES (7) Leukocytosis Assessment/Plan: -flagyl and merapenem IVPB -ID on board -monitor trend Code(s): D72.829 - ELEVATED WHITE BLOOD CELL COUNT, UNSPECIFIED (8) Ulcers of both lower extremities Assessment/Plan: -vascular consult -daily dressing changes Code(s): L97.919 - NON-PRS CHRONIC ULC UNSP PRT OF R LOW LEG W UNSP SEVERITY; L97.929 - NON-PRS CHRONIC ULC UNSP PRT OF L LOW LEG W UNSP SEVERITY Qualifiers: Non-pressure ulcer stage: unspecified non-pressure ulcer stage Qualified Code(s): L97.919 - Non-pressure chronic ulcer of unspecified part of right lower leg with unspecified severity; L97.929 - Non-pressure chronic ulcer of unspecified part of left lower leg with unspecified severity; L97.929 - Non- pressure chronic ulcer of unspecified part of left lower leg with unspecified severity; L97.929 - Non-pressure chronic ulcer of unspecified part of left lower leg with unspecified severity; L97.929 - Non-pressure chronic ulcer of unspecified part of left lower leg with unspecified severity Assessment/Plan See problem list Physical therapy
[2018-07-20] MEDS: PANTOPRAZOLE 40 MG TABLET (FP) PO SCH (11:25)
[2018-07-20] MEDS: DIGOXIN 0.125 MG TABLET (FP) PO SCH (11:25)
[2018-07-20] MEDS: POLYETHYLENE GLYCOL 3350 119 GM BTL PO SCH (11:26)
[2018-07-20] MEDS: APIXABAN 5 MG TABLET PO SCH ×2 (11:26→22:28)
--- NOTE | 2018-07-20 13:54 | PN ---
Progress Note, Physician History of Present Illness: still with some abd pain rash improving still congestion - Current Medication List Current Medications: Active Medications Apixaban (Eliquis -) 5 mg PO BID [facility] Last Admin: 07/20/18 11:26 Dose: 5 mg Digoxin (Lanoxin -) 0.125 mg PO DAILY [facility] Last Admin: 07/20/18 11:25 Dose: 0.125 mg Hydroxyzine HCl (Atarax -) 25 mg PO Q6H PRN PRN Reason: FOR ITCHING Metronidazole (Flagyl 500mg Premixed Ivpb -) 500 mg in 100 mls @ 100 mls/hr IVPB Q8H-IV [facility] Last Admin: 07/20/18 11:25 Dose: 100 mls/hr Lactated Ringer's (Lactated Ringers Solution) 1,000 mls @ 125 mls/hr IV ASDIR [facility] Last Admin: 07/20/18 01:42 Dose: 125 mls/hr Levofloxacin (Levaquin 750 Mg Premixed Ivpb -) 750 mg in 150 mls @ 150 mls/hr IVPB DAILY@1800 [facility]; Protocol Last Admin: 07/19/18 17:20 Dose: 150 mls/hr Insulin Aspart (Novolog Vial Sliding Scale -) 1 vial SQ [facility]; Protocol Last Admin: 07/20/18 11:27 Dose: 6 units Insulin Detemir (Levemir Vial) 25 units SQ DAILY@0700 [facility] Last Admin: 07/20/18 06:15 Dose: Not Given Insulin Detemir (Levemir Vial) 15 units SQ HS [facility] Last Admin: 07/19/18 21:50 Dose: 15 units Morphine Sulfate (Morphine Sulfate) 4 mg IVPUSH Q4H PRN PRN Reason: PAIN LEVEL 7 - 10 Last Admin: 07/19/18 16:42 Dose: 4 mg Ondansetron HCl (Zofran Injection) 4 mg IVPUSH Q8H PRN PRN Reason: NAUSEA Pantoprazole Sodium (Protonix -) 40 mg PO DAILY [facility] Last Admin: 07/20/18 11:25 Dose: 40 mg Polyethylene Glycol (Miralax (For Daily Use) -) 17 gm PO DAILY [facility] Last Admin: 07/20/18 11:26 Dose: Not Given - Objective Vital Signs: Vital Signs Temperature 97.8 F 07/20/18 06:00 Pulse Rate 98 H 07/20/18 11:25 Respiratory Rate 20 07/20/18 06:00 Blood Pressure 144/92 07/20/18 06:00 O2 Sat by Pulse Oximetry (%) 94 L 07/19/18 21:00 Constitutional: Yes: Calm, Mild Distress, Obese Cardiovascular: Yes: Regular Rate and Rhythm Respiratory: Yes: Regular, CTA Bilaterally Gastrointestinal: Yes: Normal Bowel Sounds, Soft, Tenderness Musculoskeletal: Yes: WNL Extremities: Yes: Other Wound/Incision: Yes: Dressing Dry and Intact Neurological: Yes: Alert, Oriented Psychiatric: Yes: Alert, Oriented Labs: CBC, BMP 07/20/18 07:10 07/20/18 07:10 INR, PTT INR 1.27 (0.83-1.09) H 07/15/18 15:00 Assessment/Plan Problem List - Problems (1) Appendicitis Code(s): K37 - UNSPECIFIED APPENDICITIS Qualifiers: Appendicitis type: acute appendicitis Acute appendicitis type: with localized peritonitis Appendicitis gangrene presence: without gangrene Appendicitis perforation presence: without perforation Appendicitis abscess presence: without abscess Qualified Code(s): K35.30 - Acute appendicitis with localized peritonitis, without perforation or gangrene (2) NOVA (acute kidney injury) Code(s): N17.9 - ACUTE KIDNEY FAILURE, UNSPECIFIED (3) Afib Code(s): I48.91 - UNSPECIFIED ATRIAL FIBRILLATION Qualifiers: Atrial fibrillation type: paroxysmal Qualified Code(s): I48.0 - Paroxysmal atrial fibrillation (4) Chronic cellulitis Code(s): L03.90 - CELLULITIS, UNSPECIFIED (5) DM2 (diabetes mellitus, type 2) Code(s): E11.9 - TYPE 2 DIABETES MELLITUS WITHOUT COMPLICATIONS Qualifiers: Diabetes mellitus intermediate card tender insulin use: with intermediate card tender use Diabetes mellitus complication detail: with other circulatory complications (6) Obesity Code(s): E66.9 - OBESITY, UNSPECIFIED Qualifiers: Obesity type: due to excess calories Obesity classification: adult class 3 (BMI >= 40) Serious obesity comorbidity presence: with serious comorbidity Body mass index: BMI 40.0-44.9 Qualified Code(s): E66.01 - Morbid (severe) obesity due to excess calories; Z68.41 - Body mass index (BMI) 40.0-44.9, adult 7 b/l wound infection of both legs plan continue abx will see how patient does tomorrow might change to oral rest as per the team
[2018-07-20] MEDS: METOPROLOL TARTRATE 25 MG TABLET (FP) PO SCH (18:23)
[2018-07-20] MEDS: traMADol HCL 50 MG TABLET PO PRN (23:26)
[2018-07-21] MEDS: INSULIN (LEVEMIR) 100 UNITS/ML UNITS SQ SCH ×2 (06:01→21:31)
[2018-07-21] MEDS: INSULIN SLIDING SCALE (NOVOLOG) 1 VIAL SQ SCH ×4 (06:02→21:24)
[2018-07-21 07:38] LABS: BASO % 0.5 % (0-2.0); EOS % 5.4 % (0-4.5); HEMATOCRIT 32.6 % (32.4-45.2); LYMPH % 13.3 % (8-40); MCHC 33.7 g/dl (32.0-36.0); MEAN PLT VOLUME 9.4 fl (7.5-11.1); MONO % 10.8 % (3.8-10.2); PLATELET COUNT 285 K/MM3 (134-434); RBC 3.79 M/mm3 (3.60-5.2); RDW 15.7 % (11.6-15.6); WHITE BLOOD COUNT 10.1 K/mm3 (4.0-10.0)
[2018-07-21 08:06] LABS: ALBUMIN 2.2 g/dl (3.4-5.0); ALK PHOS 116 U/L (45-117); ANION GAP 5 MMOL/L (8-16); BILIRUBIN,TOTAL 0.2 mg/dL (0.2-1); BLOOD UREA NITROGEN 14 mg/dL (7-18); CHLORIDE 109 mmol/L (98-107); CO2 26 mmol/L (21-32); CREATININE 0.9 mg/dL (0.55-1.3); GLUCOSE,RANDOM 172 mg/dL (74-106); SGOT/AST 18 U/L (15-37); SGPT/ALT 23 U/L (13-61); SODIUM 140 mmol/L (136-145); TOT PROT 5.7 g/dl (6.4-8.2)
--- NOTE | 2018-07-21 09:05 | OP ---
DATE OF OPERATION: 07/16/2018 PREOPERATIVE DIAGNOSIS: Acute appendicitis. POSTOPERATIVE DIAGNOSIS: Acute suppurative appendicitis. PROCEDURE: Laparoscopic appendectomy. ATTENDING SURGEON: Hoang Dean MD LOG MARKER: No one. ANESTHESIOLOGIST: Fabian Winn MD ANESTHESIA TYPE: General with local. Local consisted of 0.5% Marcaine, a total of 10 mL given at port sites. ESTIMATED BLOOD LOSS: 5 mL. INTRAVENOUS FLUID ADMINISTERED: 1000 mL. URINE OUTPUT: During the case was 100 mL of urine, intraoperative Johnson which was removed postoperative. SPECIMEN: Appendix. BRIEF FINDINGS: Patient had a suppurative peel on the surface of the colon and the haustra. She had an inflamed appendix which was also suppurative. Did not appear grossly perforated. All counts were correct at the conclusion of surgery. INDICATION: Patient is a 53-year-old female, multiple medical problems, presenting with acute appendicitis on CAT scan confirmed. She was counseled regarding risks, benefits and alternatives of surgical procedure proposed. Signed informed consent. Was taken for the procedure. PROCEDURE: Patient was brought to the operating room. She was placed in the supine position on the operating table. Lower extremities had SCDs placed to compression. She received intravenous antibiotics prior to surgery. She was induced with general anesthesia, endotracheally intubated at which point we proceeded first with a formal timeout identifying the operative site and the procedure. We began with a prep of the anterior abdominal wall in standard surgical fashion after clipping. After the formal timeout began with a supraumbilical approach for Eliot entry. Incised with a 15-blade scalpel. Deepened and widened through subcutaneous tissue. Care was taken to dissect down to the anterior fascia. The fascia was scored and opened and then bluntly entered into the abdomen. The viscera was cleared with a finger at which point the fascia had a [id number] 0 Vicryl laid in for ablation of the space postoperatively. A Eliot port 12 mm was then installed into the abdomen and pneumoperitoneum was established to 15 mmHg at which point we inspected the abdomen. There appeared to be a purulent peel in the right lower quadrant of the colon and appendix and it was taken down bluntly. Additional operative sites were placed at the suprapubic position as well as the left lower quadrant. Once this was cleared the patient was placed into steep Trendelenburg and the viscera was allowed to slide away from the right lower quadrant. We began by exploring the area, suctioning a small amount of ascitic free fluid as well as taking down some peel. The appendix was then grasped mid body. The base was identified at the termination of the tinea. A plane was created between the appendix and the mesoappendix with a [place]. A stapler was then passed from the Eliot port after the camera was reset into the left lower quadrant to allow it to staple the base of the appendix which was done with a 60-mm Endo-GERSON stapler. When this was done the mesoappendix, the remainder, was taken with LigaSure device to control hemostasis throughout the dissection. When it was free the appendix was then retrieved from the abdomen with an EndoCatch bag 10 mm from the umbilical port as well. Once complete another inspection of the abdomen appeared to be relatively clear. Additional peel was taken from the haustra and the colon which all appeared viable. We began then to remove the reports under direct visualization and ablate the Eliot port entry after pneumoperitoneum was relieved. The specimen was examined and then passed off for pathologic diagnosis. The port sites were closed in subcuticular fashion after irrigating them and applying local anesthetic as detailed. Skin was cleaned. Sterile dressings were placed which in this case included Dermabond. Patient was awoken from general anesthesia having tolerated procedure well, returned to recovery in stable condition. Counts were correct prior to the closure of the abdomen. MD MICHAEL Smith/[id number]
--- NOTE | 2018-07-21 09:50 | PN ---
Progress Note, Physician History of Present Illness: patient doing well no issues mild pain tolerating diet had a bm - Current Medication List Current Medications: Active Medications Apixaban (Eliquis -) 5 mg PO BID [facility] Last Admin: 07/20/18 22:28 Dose: 5 mg Digoxin (Lanoxin -) 0.125 mg PO DAILY [facility] Last Admin: 07/20/18 11:25 Dose: 0.125 mg Hydroxyzine HCl (Atarax -) 25 mg PO Q6H PRN PRN Reason: FOR ITCHING Insulin Aspart (Novolog Vial Sliding Scale -) 1 vial SQ [facility]; Protocol Last Admin: 07/21/18 06:02 Dose: 5 units Insulin Detemir (Levemir Vial) 25 units SQ DAILY@0700 [facility] Last Admin: 07/21/18 06:01 Dose: 25 units Insulin Detemir (Levemir Vial) 15 units SQ HS [facility] Last Admin: 07/20/18 21:08 Dose: 15 units Levofloxacin (Levaquin) 750 mg PO DAILY [facility] Metoprolol Tartrate (Lopressor -) 25 mg PO DAILY [facility] Last Admin: 07/20/18 18:23 Dose: 25 mg Metronidazole (Flagyl -) 500 mg PO TID [facility] Morphine Sulfate (Morphine Sulfate) 4 mg IVPUSH Q4H PRN PRN Reason: PAIN LEVEL 7 - 10 Last Admin: 07/19/18 16:42 Dose: 4 mg Ondansetron HCl (Zofran Injection) 4 mg IVPUSH Q8H PRN PRN Reason: NAUSEA Pantoprazole Sodium (Protonix -) 40 mg PO DAILY [facility] Last Admin: 07/20/18 11:25 Dose: 40 mg Polyethylene Glycol (Miralax (For Daily Use) -) 17 gm PO DAILY [facility] Last Admin: 07/20/18 11:26 Dose: Not Given Tramadol HCl (Ultram -) 50 mg PO Q6H PRN PRN Reason: PAIN LEVEL 6-10 Last Admin: 07/20/18 23:26 Dose: 50 mg - Objective Vital Signs: Vital Signs Temperature 98.2 F 07/20/18 20:52 Pulse Rate 94 H 07/20/18 20:52 Respiratory Rate 20 07/20/18 21:00 Blood Pressure 119/75 07/20/18 20:52 O2 Sat by Pulse Oximetry (%) 94 L 07/20/18 21:00 Constitutional: Yes: No Distress, Calm, Obese Cardiovascular: Yes: Regular Rate and Rhythm Respiratory: Yes: Regular, CTA Bilaterally Gastrointestinal: Yes: Normal Bowel Sounds, Soft Musculoskeletal: Yes: WNL Extremities: Yes: Other Wound/Incision: Yes: Dressing Dry and Intact Neurological: Yes: Alert, Oriented Psychiatric: Yes: Alert, Oriented Labs: CBC, BMP 07/21/18 06:10 07/21/18 06:10 INR, PTT INR 1.27 (0.83-1.09) H 07/15/18 15:00 Assessment/Plan Problem List - Problems (1) Appendicitis Code(s): K37 - UNSPECIFIED APPENDICITIS Qualifiers: Appendicitis type: acute appendicitis Acute appendicitis type: with localized peritonitis Appendicitis gangrene presence: without gangrene Appendicitis perforation presence: without perforation Appendicitis abscess presence: without abscess Qualified Code(s): K35.30 - Acute appendicitis with localized peritonitis, without perforation or gangrene (2) NOVA (acute kidney injury) Code(s): N17.9 - ACUTE KIDNEY FAILURE, UNSPECIFIED (3) Afib Code(s): I48.91 - UNSPECIFIED ATRIAL FIBRILLATION Qualifiers: Atrial fibrillation type: paroxysmal Qualified Code(s): I48.0 - Paroxysmal atrial fibrillation (4) Chronic cellulitis Code(s): L03.90 - CELLULITIS, UNSPECIFIED (5) DM2 (diabetes mellitus, type 2) Code(s): E11.9 - TYPE 2 DIABETES MELLITUS WITHOUT COMPLICATIONS Qualifiers: Diabetes mellitus assisted insulin use: with termite treater helper use Diabetes mellitus complication detail: with other circulatory complications (6) Obesity Code(s): E66.9 - OBESITY, UNSPECIFIED Qualifiers: Obesity type: due to excess calories Obesity classification: adult class 3 (BMI >= 40) Serious obesity comorbidity presence: with serious comorbidity Body mass index: BMI 40.0-44.9 Qualified Code(s): E66.01 - Morbid (severe) obesity due to excess calories; Z68.41 - Body mass index (BMI) 40.0-44.9, adult 7 b/l wound infection of both legs plan changed to oral abx to continue for another 3 days wound care rest as per the team
[2018-07-21] MEDS: APIXABAN 5 MG TABLET PO SCH ×2 (09:51→21:21)
[2018-07-21] MEDS: DIGOXIN 0.125 MG TABLET (FP) PO SCH (09:51)
[2018-07-21] MEDS: PANTOPRAZOLE 40 MG TABLET (FP) PO SCH (09:51)
[2018-07-21] MEDS: METOPROLOL TARTRATE 25 MG TABLET (FP) PO SCH (09:51)
[2018-07-21] MEDS: POLYETHYLENE GLYCOL 3350 119 GM BTL PO SCH (09:58)
--- NOTE | 2018-07-21 11:27 | PN ---
Progress Note, Physician Chief Complaint: Appendicitis S/p lap appendectomy History of Present Illness: Previous notes and events reviewed awake and alert heart rate more controlled POD #5 s/p lap appendectomy denies abdominal pain, nausea, vomiting - Current Medication List Current Medications: Active Medications Apixaban (Eliquis -) 5 mg PO BID [facility] Last Admin: 07/21/18 09:51 Dose: 5 mg Digoxin (Lanoxin -) 0.125 mg PO DAILY [facility] Last Admin: 07/21/18 09:51 Dose: 0.125 mg Hydroxyzine HCl (Atarax -) 25 mg PO Q6H PRN PRN Reason: FOR ITCHING Insulin Aspart (Novolog Vial Sliding Scale -) 1 vial SQ [facility]; Protocol Last Admin: 07/21/18 06:02 Dose: 5 units Insulin Detemir (Levemir Vial) 25 units SQ DAILY@0700 [facility] Last Admin: 07/21/18 06:01 Dose: 25 units Insulin Detemir (Levemir Vial) 15 units SQ HS [facility] Last Admin: 07/20/18 21:08 Dose: 15 units Levofloxacin (Levaquin) 750 mg PO DAILY [facility] Metoprolol Tartrate (Lopressor -) 25 mg PO DAILY [facility] Last Admin: 07/21/18 09:51 Dose: 25 mg Metronidazole (Flagyl -) 500 mg PO TID [facility] Morphine Sulfate (Morphine Sulfate) 4 mg IVPUSH Q4H PRN PRN Reason: PAIN LEVEL 7 - 10 Last Admin: 07/19/18 16:42 Dose: 4 mg Ondansetron HCl (Zofran Injection) 4 mg IVPUSH Q8H PRN PRN Reason: NAUSEA Pantoprazole Sodium (Protonix -) 40 mg PO DAILY [facility] Last Admin: 07/21/18 09:51 Dose: 40 mg Polyethylene Glycol (Miralax (For Daily Use) -) 17 gm PO DAILY [facility] Last Admin: 07/21/18 09:58 Dose: Not Given Tramadol HCl (Ultram -) 50 mg PO Q6H PRN PRN Reason: PAIN LEVEL 6-10 Last Admin: 07/20/18 23:26 Dose: 50 mg - Objective Vital Signs: Vital Signs Temperature 98.2 F 07/20/18 20:52 Pulse Rate 100 H 07/21/18 09:51 Respiratory Rate 20 07/20/18 21:00 Blood Pressure 119/75 07/20/18 20:52 O2 Sat by Pulse Oximetry (%) 94 L 07/20/18 21:00 Constitutional: Yes: No Distress, Calm, Obese Eyes: Yes: Conjunctiva Clear HENT: Yes: Normocephalic Cardiovascular: Yes: Regular Rate and Rhythm Respiratory: Yes: Regular, CTA Bilaterally Gastrointestinal: Yes: Normal Bowel Sounds, Soft, Abdomen, Obese Musculoskeletal: Yes: Muscle Weakness Extremities: Yes: WNL Edema: Yes (b/l lower extremity) Wound/Incision: Yes: Open to air, Dressing Dry and Intact (B/L lower extremity) Neurological: Yes: Alert, Oriented Psychiatric: Yes: Alert, Oriented Labs: CBC, BMP 07/21/18 06:10 07/21/18 06:10 INR, PTT INR 1.27 (0.83-1.09) H 07/15/18 15:00 Problem List - Problems (1) HTN (hypertension) Assessment/Plan: -low Na diet Code(s): I10 - ESSENTIAL (PRIMARY) HYPERTENSION (2) Appendicitis Assessment/Plan: -surgery on board -POD #5 s/p lap appendectomy -started on PO Levaquin -pain management -incentive spirometer -PT Code(s): K37 - UNSPECIFIED APPENDICITIS Qualifiers: Appendicitis type: acute appendicitis Acute appendicitis type: with localized peritonitis Appendicitis gangrene presence: without gangrene Appendicitis perforation presence: without perforation Appendicitis abscess presence: without abscess Qualified Code(s): K35.30 - Acute appendicitis with localized peritonitis, without perforation or gangrene (3) NOVA (acute kidney injury) Assessment/Plan: -current BUN/Cr 14/0.9 -will monitor renal function Code(s): N17.9 - ACUTE KIDNEY FAILURE, UNSPECIFIED (4) Abdominal pain Assessment/Plan: -surgery and GI on board -pain management Code(s): R10.9 - UNSPECIFIED ABDOMINAL PAIN (5) Afib Assessment/Plan: -Eliquis 5mg BID and digoxin 0.125mg daily -cardiology on board Code(s): I48.91 - UNSPECIFIED ATRIAL FIBRILLATION Qualifiers: Atrial fibrillation type: paroxysmal Qualified Code(s): I48.0 - Paroxysmal atrial fibrillation (6) DM2 (diabetes mellitus, type 2) Assessment/Plan: -HgA1c 11.0% -BGM ACHS, ISS -endo consult -diabetic diet Code(s): E11.9 - TYPE 2 DIABETES MELLITUS WITHOUT COMPLICATIONS Qualifiers: Diabetes mellitus 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 insulin use: with mcfp use Diabetes mellitus complication detail: with other circulatory complications (7) Leukocytosis Assessment/Plan: -started on levaquin -ID on board -WBC 10.1 Code(s): D72.829 - ELEVATED WHITE BLOOD CELL COUNT, UNSPECIFIED (8) Ulcers of both lower extremities Assessment/Plan: -vascular consult -daily dressing changes Code(s): L97.919 - NON-PRS CHRONIC ULC UNSP PRT OF R LOW LEG W UNSP SEVERITY; L97.929 - NON-PRS CHRONIC ULC UNSP PRT OF L LOW LEG W UNSP SEVERITY Qualifiers: Non-pressure ulcer stage: unspecified non-pressure ulcer stage Qualified Code(s): L97.919 - Non-pressure chronic ulcer of unspecified part of right lower leg with unspecified severity; L97.929 - Non-pressure chronic ulcer of unspecified part of left lower leg with unspecified severity; L97.929 - Non- pressure chronic ulcer of unspecified part of left lower leg with unspecified severity; L97.929 - Non-pressure chronic ulcer of unspecified part of left lower leg with unspecified severity; L97.929 - Non-pressure chronic ulcer of unspecified part of left lower leg with unspecified severity (9) Constipation Assessment/Plan: -miralax daily Code(s): K59.00 - CONSTIPATION, UNSPECIFIED Assessment/Plan see problem list dvt ppx PT
[2018-07-21] MEDS ORDERED: INSULIN (NOVOLOG) ASPART 100 UNITS/ML 10ML VIAL ONE ×2 (11:41→21:03)
[2018-07-21 11:54] LABS: ANISOCYTOSIS 0; HELMET CELLS 0; HOWELL-JOLLY BODIES 0; MACROCYTOSIS 0; OVALOCYTE 0; PLATELET ESTIMATE NORMAL; ROULEAU 0; SICKELED CELLS 0; TARGET CELLS 0; TEAR DROP CELLS 0; TOXIC GRANULATION 0
--- NOTE | 2018-07-21 12:31 | PN ---
Progress Note, Physician Chief Complaint: abdominal pain History of Present Illness: 53yo female wiht PMH HTN, DM, afib (on eliquis last was 07/13 and cardizem) here today complaining of 2 days of abdominal pain, located worse on the right side of her abdomen. Endorses associated nausea and multiple episodes of vomiting. stable postoperatively. - Current Medication List Current Medications: Active Medications Apixaban (Eliquis -) 5 mg PO BID [facility] Last Admin: 07/21/18 09:51 Dose: 5 mg Digoxin (Lanoxin -) 0.125 mg PO DAILY [facility] Last Admin: 07/21/18 09:51 Dose: 0.125 mg Hydroxyzine HCl (Atarax -) 25 mg PO Q6H PRN PRN Reason: FOR ITCHING Insulin Aspart (Novolog Vial Sliding Scale -) 1 vial SQ [facility]; Protocol Last Admin: 07/21/18 11:56 Dose: 6 units Insulin Detemir (Levemir Vial) 25 units SQ DAILY@0700 [facility] Last Admin: 07/21/18 06:01 Dose: 25 units Insulin Detemir (Levemir Vial) 15 units SQ HS [facility] Last Admin: 07/20/18 21:08 Dose: 15 units Levofloxacin (Levaquin) 750 mg PO DAILY [facility] Metoprolol Tartrate (Lopressor -) 25 mg PO DAILY [facility] Last Admin: 07/21/18 09:51 Dose: 25 mg Metronidazole (Flagyl -) 500 mg PO TID [facility] Morphine Sulfate (Morphine Sulfate) 4 mg IVPUSH Q4H PRN PRN Reason: PAIN LEVEL 7 - 10 Last Admin: 07/19/18 16:42 Dose: 4 mg Ondansetron HCl (Zofran Injection) 4 mg IVPUSH Q8H PRN PRN Reason: NAUSEA Pantoprazole Sodium (Protonix -) 40 mg PO DAILY [facility] Last Admin: 07/21/18 09:51 Dose: 40 mg Polyethylene Glycol (Miralax (For Daily Use) -) 17 gm PO DAILY [facility] Last Admin: 07/21/18 09:58 Dose: Not Given Tramadol HCl (Ultram -) 50 mg PO Q6H PRN PRN Reason: PAIN LEVEL 6-10 Last Admin: 07/20/18 23:26 Dose: 50 mg - Objective Vital Signs: Vital Signs Temperature 98.2 F 07/20/18 20:52 Pulse Rate 100 H 07/21/18 09:51 Respiratory Rate 20 07/20/18 21:00 Blood Pressure 119/75 07/20/18 20:52 O2 Sat by Pulse Oximetry (%) 94 L 07/20/18 21:00 Vital Signs Period Temp Pulse Resp BP Sys/Callahan Pulse Ox Last 24 Hr 98.0 F-98.4 F 90-95 18-88 123-130/78-82 96 Constitutional: Yes: Well Nourished, No Distress, Calm Eyes: Yes: Conjunctiva Clear, EOM Intact HENT: Yes: Atraumatic, Normocephalic Neck: Yes: Supple, Trachea Midline Cardiovascular: Yes: Regular Rate and Rhythm, S1, S2 Respiratory: Yes: Regular, CTA Bilaterally Gastrointestinal: Yes: Normal Bowel Sounds, Soft, Abdomen, Obese. No: Tenderness, Tenderness, Epigastrium, Tenderness, Rebound ...Rectal Exam: Yes: Deferred Genitourinary: No: CVA Tenderness - Left, CVA Tenderness - Right Breast(s): No: Discharge from Nipple, Mass, Nipple Inversion Musculoskeletal: No: Muscle Pain, Muscle Weakness Extremities: No: Cool, Cyanosis Edema: No Peripheral Pulses WNL: Yes Peripheral Pulses: Left Radial: 2+, Right Radial: 2+, Left Doralis Pedis: 2+, Right Dorsalis Pedis: 2+, Left Femoral: 2+, Right Femoral: 2+ Integumentary: Yes: Rash, Venous Stasis Changes Wound/Incision: Yes: Clean/Dry, Well Approximated, Open to air Neurological: Yes: Alert, Oriented Psychiatric: Yes: Alert, Oriented Labs: CBC, BMP 07/21/18 06:10 07/21/18 06:10 INR, PTT INR 1.27 (0.83-1.09) H 07/15/18 15:00 Problem List - Problems (1) Appendicitis Assessment/Plan: 53 yo with MMP presents with 2 days RLQ pain, tender on exam, WBC 21K, CT confirms periappendiceal standing, 2 days off eloquis, Afib not rate controlled. POD#5 s/p laparoscopic appendectomy for likely a supperative appendicitis. improved symptomatically, tolerating diet Resume diet as tolerated continue IV antibiotics per ID trend labs OOB and ambulate encourage IS Will follow Discharge planning Code(s): K37 - UNSPECIFIED APPENDICITIS Qualifiers: Appendicitis type: acute appendicitis Acute appendicitis type: with localized peritonitis Appendicitis gangrene presence: without gangrene Appendicitis perforation presence: without perforation Appendicitis abscess presence: without abscess Qualified Code(s): K35.30 - Acute appendicitis with localized peritonitis, without perforation or gangrene (2) NOVA (acute kidney injury) Code(s): N17.9 - ACUTE KIDNEY FAILURE, UNSPECIFIED (3) Afib Code(s): I48.91 - UNSPECIFIED ATRIAL FIBRILLATION Qualifiers: Atrial fibrillation type: paroxysmal Qualified Code(s): I48.0 - Paroxysmal atrial fibrillation (4) Chronic cellulitis Code(s): L03.90 - CELLULITIS, UNSPECIFIED (5) DM2 (diabetes mellitus, type 2) Code(s): E11.9 - TYPE 2 DIABETES MELLITUS WITHOUT COMPLICATIONS Qualifiers: Diabetes mellitus terminal operator insulin use: with terminal operator use Diabetes mellitus complication detail: with other circulatory complications (6) Obesity Code(s): E66.9 - OBESITY, UNSPECIFIED Qualifiers: Obesity type: due to excess calories Obesity classification: adult class 3 (BMI >= 40) Serious obesity comorbidity presence: with serious comorbidity Body mass index: BMI 40.0-44.9 Qualified Code(s): E66.01 - Morbid (severe) obesity due to excess calories; Z68.41 - Body mass index (BMI) 40.0-44.9, adult
[2018-07-21] MEDS: traMADol HCL 50 MG TABLET PO PRN ×2 (14:32→21:32)
[2018-07-21] MEDS: metroNIDAZOLE 250 MG TABLET PO SCH ×2 (14:32→21:21)
[2018-07-21] MEDS: levoFLOXacin 750 MG TABLET PO SCH (17:07)
[2018-07-22] MEDS: metroNIDAZOLE 250 MG TABLET PO SCH ×2 (05:35→14:07)
[2018-07-22] MEDS: INSULIN SLIDING SCALE (NOVOLOG) 1 VIAL SQ SCH ×3 (06:02→17:32)
[2018-07-22] MEDS: INSULIN (LEVEMIR) 100 UNITS/ML UNITS SQ SCH (06:02)
[2018-07-22 07:48] LABS: BASO % 0.4 % (0-2.0); HEMOGLOBIN 11.3 GM/dL (10.7-15.3); LYMPH % 11.3 % (8-40); MCH 28.8 pg (25.7-33.7); MCHC 33.3 g/dl (32.0-36.0); MEAN CELL VOLUME 86.4 fl (80-96); MEAN PLT VOLUME 9.4 fl (7.5-11.1); MONO % 9.1 % (3.8-10.2); NEUT % 74.2 % (42.8-82.8); PLATELET COUNT 295 K/MM3 (134-434); RBC 3.93 M/mm3 (3.60-5.2); RDW 16.1 % (11.6-15.6); WHITE BLOOD COUNT 8.9 K/mm3 (4.0-10.0)
[2018-07-22 08:15] LABS: ALBUMIN 2.3 g/dl (3.4-5.0); ALK PHOS 116 U/L (45-117); ANION GAP 6 MMOL/L (8-16); BILIRUBIN,TOTAL 0.3 mg/dL (0.2-1); BLOOD UREA NITROGEN 13 mg/dL (7-18); CHLORIDE 108 mmol/L (98-107); CO2 26 mmol/L (21-32); GLUCOSE,RANDOM 131 mg/dL (74-106); POTASSIUM 4.1 mmol/L (3.5-5.1); SGOT/AST 23 U/L (15-37); SGPT/ALT 23 U/L (13-61); SODIUM 140 mmol/L (136-145); TOT PROT 5.9 g/dl (6.4-8.2)
[2018-07-22 10:47] LABS: ANISOCYTOSIS 0; HELMET CELLS 0; HOWELL-JOLLY BODIES 0; MACROCYTOSIS 0; OVALOCYTE 0; PLATELET ESTIMATE NORMAL; ROULEAU 0; SICKELED CELLS 0; TARGET CELLS 0; TEAR DROP CELLS 0; TOXIC GRANULATION 0
[2018-07-22] MEDS ORDERED: PT OWN MED DRAWER 7, Y5N ONE (11:00)
[2018-07-22] MEDS: METOPROLOL TARTRATE 25 MG TABLET (FP) PO SCH (11:03)
[2018-07-22] MEDS: DIGOXIN 0.125 MG TABLET (FP) PO SCH (11:03)
[2018-07-22] MEDS: PANTOPRAZOLE 40 MG TABLET (FP) PO SCH (11:03)
[2018-07-22] MEDS: levoFLOXacin 750 MG TABLET PO SCH (11:04)
[2018-07-22] MEDS: APIXABAN 5 MG TABLET PO SCH (11:04)
[2018-07-22] MEDS: POLYETHYLENE GLYCOL 3350 119 GM BTL PO SCH (11:04)
[2018-07-22] MEDS: traMADol HCL 50 MG TABLET PO PRN (11:10)
[2018-07-22] MEDS ORDERED: INSULIN (NOVOLOG) ASPART 100 UNITS/ML 10ML VIAL ONE (11:33)
--- NOTE | 2018-07-22 12:09 | PN ---
Progress Note, Physician - Current Medication List Current Medications: Active Medications Apixaban (Eliquis -) 5 mg PO BID [facility] Last Admin: 07/22/18 11:04 Dose: 5 mg Digoxin (Lanoxin -) 0.125 mg PO DAILY [facility] Last Admin: 07/22/18 11:03 Dose: 0.125 mg Hydroxyzine HCl (Atarax -) 25 mg PO Q6H PRN PRN Reason: FOR ITCHING Insulin Aspart (Novolog Vial Sliding Scale -) 1 vial SQ [facility]; Protocol Last Admin: 07/22/18 11:50 Dose: 6 units Insulin Detemir (Levemir Vial) 25 units SQ DAILY@0700 [facility] Last Admin: 07/22/18 06:02 Dose: 25 units Insulin Detemir (Levemir Vial) 15 units SQ HS [facility] Last Admin: 07/21/18 21:31 Dose: 15 units Levofloxacin (Levaquin) 750 mg PO DAILY [facility] Last Admin: 07/22/18 11:04 Dose: 750 mg Metoprolol Tartrate (Lopressor -) 25 mg PO DAILY [facility] Last Admin: 07/22/18 11:03 Dose: 25 mg Metronidazole (Flagyl -) 500 mg PO TID [facility] Last Admin: 07/22/18 05:35 Dose: 500 mg Morphine Sulfate (Morphine Sulfate) 4 mg IVPUSH Q4H PRN PRN Reason: PAIN LEVEL 7 - 10 Last Admin: 07/19/18 16:42 Dose: 4 mg Ondansetron HCl (Zofran Injection) 4 mg IVPUSH Q8H PRN PRN Reason: NAUSEA Pantoprazole Sodium (Protonix -) 40 mg PO DAILY [facility] Last Admin: 07/22/18 11:03 Dose: 40 mg Polyethylene Glycol (Miralax (For Daily Use) -) 17 gm PO DAILY [facility] Last Admin: 07/22/18 11:04 Dose: Not Given Tramadol HCl (Ultram -) 50 mg PO Q6H PRN PRN Reason: PAIN LEVEL 6-10 Last Admin: 07/22/18 11:10 Dose: 50 mg - Objective Vital Signs: Vital Signs Temperature 98.0 F 07/21/18 22:00 Pulse Rate 95 H 07/22/18 11:03 Respiratory Rate 88 H 07/21/18 22:00 Blood Pressure 130/82 07/21/18 22:00 O2 Sat by Pulse Oximetry (%) 96 07/21/18 21:00 Labs: CBC, BMP 07/22/18 06:30 07/22/18 06:30 INR, PTT INR 1.27 (0.83-1.09) H 07/15/18 15:00
[2018-07-22] MEDS ORDERED: levoFLOXacin 750 MG TABLET PO SCH (13:47)
--- NOTE | 2018-07-22 15:00 | DS ---
Physical Examination Vital Signs: Vital Signs Temperature 97.7 F 07/22/18 10:00 Pulse Rate 95 H 07/22/18 11:03 Respiratory Rate 99 H 07/22/18 10:00 Blood Pressure 142/73 07/22/18 10:00 O2 Sat by Pulse Oximetry (%) 95 07/22/18 09:00 Constitutional: Yes: No Distress Eyes: Yes: WNL HENT: Yes: WNL Neck: Yes: WNL Cardiovascular: Yes: Pulse Irregular Respiratory: Yes: WNL Gastrointestinal: Yes: Soft Renal/: Yes: WNL Musculoskeletal: Yes: Muscle Weakness Extremities: Yes: WNL Edema: Yes Peripheral Pulses WNL: Yes Integumentary: Yes: Pressure Ulcer, Venous Stasis Changes Wound/Incision: Yes: Dressing Dry and Intact Neurological: Yes: Pre-Existing Deficit, Unsteady Gait, Weakness ...Motor Strength: LLE, RLE Psychiatric: Yes: Other Labs: CBC, BMP 07/22/18 06:30 07/22/18 06:30 Discharge Summary Reason For Visit: APPENDICITIS Current Active Problems Appendicitis (Acute) Constipation (Acute) Family history of GI tract cancer (Acute) Fatty (change of) liver, not elsewhere classified (Acute) HTN (hypertension) (Acute) Suppurative appendicitis (Acute) Procedures: Principal: LAPAPPENDECTOMY Hospital Course: ADMITTED FOR ACUTE APPENDICITIS AND LAPAPPENDECTOMY DONE, PATIENT HAS RECOVERED WELL WILL DC HOME F/U OUTPATIENT Condition: Improved - Instructions Diet, Activity, Other Instructions: Postoperative instructions: You had a laparoscopic appendectomy on 07/16/[address] Hoang Dean of [facility]. Activity: Resume your usual activities gradually, but no heavy exertion or lifting more than 10-15 pounds for 1 month. Remove dressings 48 hours after surgery; sticky tapes underneath will fall off by themselves. You may shower daily starting then, just pat the incision areas dry. No bath or swimming until skin incisions have healed. Eat lightly at first, but advance to your usual diet as tolerated. Pain: For pain, you may use and alternate Tylenol (acetaminophen) 1-2 pills and/ or ibuprofen 200 mg (1-3 pills) every 6 hours each as needed; this means that you can take one OR the other at 3-hour intervals. If you are prescribed a Tylenol/narcotic combination for severe pain, use it instead of plain Tylenol as needed and switch back when your pain starts decreasing. Do not take more than 4000mg of acetaminophen in a day. Take medications as prescribed or indicated on the labeling. Follow-up: Call Dr. Dean' office at [phone] to make your postop appointment (Saturday in approximately 2 weeks after surgery). Clinic is held in the [facility] on the first floor of [facility]. Call the office if you have: * increasing pain not responsive to pain medication * fever of 101F or higher * vomiting * unusual or increasing bleeding or drainage from wounds * increasing redness or swelling at wound sites * inability to urinate Also, see your primary medical doctor within 1-2 weeks. Referrals: Onur Maxwell MD [Primary Care Provider] - Disposition: HOME - Home Medications Comprehensive Discharge Medication List: Ambulatory Orders Budesonide/Formeterol Fumarate [SYMBICORT 80/4.5mcg -] 2 puff IH BID inhaler Insulin Sliding Scale [Novolog Vial Sliding Scale -] 1 vial SQ ACHS units 02/20 Apixaban [Eliquis -] 5 mg PO BID tablet 07/04/17 Pantoprazole Sodium [Protonix -] 40 mg PO DAILY tablet.ec 07/04/17 Enalapril Maleate 2.5 mg PO DAILY 07/15/18 Furosemide 40 mg PO ASDIR 07/15/18 Gabapentin 300 mg PO DAILY 07/15/18 Potassium Chloride 10 meq PO DAILY 07/15/18 Tramadol HCl 50 mg PO PRN 07/15/18 Apixaban [Eliquis -] 5 mg PO BID tablet 07/22/18 Digoxin [Lanoxin -] 0.125 mg PO DAILY #30 tablet 07/22/18 Insulin Glargine,Hum.rec.anlog [Toujeo Max Solostar] 300 unit SQ BID #15 insuln.pen 07/22/18 Metoprolol Tartrate [Lopressor -] 25 mg PO DAILY #30 tablet 07/22/18 Pantoprazole Sodium [Protonix -] 40 mg PO DAILY tablet.ec 07/22/18 Polyethylene Glycol 3350 [Miralax 119 gm Btl -] 17 gm PO DAILY bottle 07/22/18 hydrOXYzine HCL [Atarax -] 25 mg PO Q6H PRN #30 tablet 07/22/18 metroNIDAZOLE [Flagyl -] 500 mg PO TID #15 tablet 07/22/18 traMADol HCL [Ultram -] 50 mg PO Q6H PRN tablet MDD 4 07/22/18
[2018-07-22 15:12] VITALS: BP 141/81; PULSE 79; TEMP 98.8
== END 2018-07-22 17:52 | disposition home or self-care (01) | DRG 225 ==
LOC: JER 08:13 → JERBED 14:29 → J8W 17:30
PROVIDERS: ADMIT Family Medicine; ATTEND Family Medicine
PROC: 0DTJ4ZZ Resection of Appendix, Percutaneous Endoscopic Approach (ICD-10-PCS; principal; 2018-07-16 16:00)
DX: K35.80 Unspecified acute appendicitis (principal); I10 Essential (primary) hypertension; E66.01 Morbid (severe) obesity due to excess calories; Z68.43 Body mass index [BMI] 50.0-59.9, adult; E11.65 Type 2 diabetes mellitus with hyperglycemia; E11.42 Type 2 diabetes mellitus with diabetic polyneuropathy; F31.89 Other bipolar disorder; J45.909 Unspecified asthma, uncomplicated; N17.9 Acute kidney failure, unspecified; D72.829 Elevated white blood cell count, unspecified; K21.9 Gastro-esophageal reflux disease without esophagitis; I48.0 Paroxysmal atrial fibrillation; K59.00 Constipation, unspecified; E11.51 Type 2 diabetes mellitus with diabetic peripheral angiopathy without gangrene; E11.622 Type 2 diabetes mellitus with other skin ulcer; L97.828 Non-pressure chronic ulcer of other part of left lower leg with other specified severity; L97.818 Non-pressure chronic ulcer of other part of right lower leg with other specified severity; I87.8 Other specified disorders of veins; L03.116 Cellulitis of left lower limb; L03.115 Cellulitis of right lower limb; K76.0 Fatty (change of) liver, not elsewhere classified; Z80.0 Family history of malignant neoplasm of digestive organs
CPT/HCPCS: 36415; 71045-TC-FY; 74176-TC; 76705-TC; 80053; 81003; 81015; 82172; 82247; 82465; 82550; 82947; 82962; 82977; 83010; 83036; 83690; 83883; 84450; 84460; 84478; 84484; 85025; 85027; 85610; 85730; 86850; 86900; 86901; 87081; 88304-TC; 93005; 93010; 94760; 97116-GP; 97161-GP; 99284-25; J0131; J1644; J7030

== ENCOUNTER 2018-11-13 17:17 | Inpatient (IN) | payer OTHER ==
[2018-11-13] MEDS ORDERED: SODIUM CHLORIDE 2,000 ML IV STA (17:37)
--- NOTE | 2018-11-13 17:41 | PDOC ---
History of Present Illness - General Stated Complaint: LOW BLOOD PRESSURE Time Seen by Provider: 11/13/18 17:31 History Source: Patient, Family Exam Limitations: Other (altered mental status) - History of Present Illness Initial Comments: 11/13/18 17:42 53YOF with h/o IDDM, active BLE cellulitis x years, A-fib on Eliquis, HTN, asthma, gallstones, renal insufficiency, and bipolar disorder, who p/w altered mental status and hypotension. The patient and her are both poor historians. The patient is states she forgot to take her insulin for the past two days, then she went to the pharmacy about 20 minutes [employer] and picked up insulin and injected 20 U. She also notes BLE wounds and states she dresses them herself with xeroform and last dressing days ago. states he is concerned she took too much tramadol too. He states her mental status has been worsening x2 days and she has been sleeping a lot. Otherwise neither can provide additional information at this time. PCP is Dr. Maxwell and they state she last saw him in May 2018. No wound care provider. Past History - Past Medical History Allergies/Adverse Reactions: Allergies Allergy/AdvReac Type Severity Reaction Status Date / Time nut - unspecified Allergy Verified 11/13/18 21:32 Penicillins Allergy Verified 11/13/18 21:32 walnut Allergy Verified 11/13/18 21:32 Home Medications: Ambulatory Orders Budesonide/Formeterol Fumarate [SYMBICORT 80/4.5mcg -] 2 puff IH BID inhaler Insulin Sliding Scale [Novolog Vial Sliding Scale -] 1 vial SQ ACHS units 02/20 Apixaban [Eliquis -] 5 mg PO BID tablet 07/04/17 Pantoprazole Sodium [Protonix -] 40 mg PO DAILY tablet.ec 07/04/17 Enalapril Maleate 2.5 mg PO DAILY 07/15/18 Furosemide 40 mg PO ASDIR 07/15/18 Gabapentin 300 mg PO DAILY 07/15/18 Potassium Chloride 10 meq PO DAILY 07/15/18 Tramadol HCl 50 mg PO PRN 07/15/18 Apixaban [Eliquis -] 5 mg PO BID tablet 07/22/18 Digoxin [Lanoxin -] 0.125 mg PO DAILY #30 tablet 07/22/18 Insulin Glargine,Hum.rec.anlog [Isabel Styles Solostar] 300 unit SQ BID #15 insuln.pen 07/22/18 Metoprolol Tartrate [Lopressor -] 25 mg PO DAILY #30 tablet 07/22/18 Pantoprazole Sodium [Protonix -] 40 mg PO DAILY tablet.ec 07/22/18 Polyethylene Glycol 3350 [Miralax 119 gm Btl -] 17 gm PO DAILY bottle 07/22/18 hydrOXYzine HCL [Atarax -] 25 mg PO Q6H PRN #30 tablet 07/22/18 metroNIDAZOLE [Flagyl -] 500 mg PO TID #15 tablet 07/22/18 traMADol HCL [Ultram -] 50 mg PO Q6H PRN tablet MDD 4 07/22/18 Anemia: No Asthma: Yes Cardiac Disorders: Yes (AF, cellulitis) COPD: No DVT: No Diabetes: Yes (on insulin) GI Disorders: (Yes; gastritis) - Suicide/Smoking/Psychosocial Hx Smoking History: Former smoker Have you smoked in the past 12 months: No Number of Cigarettes Smoked Daily: 0 If you are a former smoker, when did you quit?: quit age 13 Hx Alcohol Use: No Drug/Substance Use Hx: No Substance Use Type: None Hx Substance Use Treatment: No Review of Systems - Review of Systems Able to Perform ROS?: No (altered mental status) ED Treatment Course - LABORATORY CBC & Chemistry Diagram: 11/13/18 20:40 11/13/18 17:48 - ADDITIONAL ORDERS Additional order review: Laboratory Results 11/13/18 17:24 POC Glucometer 409 11/13/18 17:24 POC Glucometer 409 Medical Decision Making - Critical Care Time Total Critical Care Time (minutes): 60 Critical Care Statement: The care of this patient involved high complexity decision making to prevent further life threatening deterioration of the patient 's condition and/or to evaluate & treat vital organ system(s) failure or risk of failure. - Medical Decision Making 53YOF with IDDM and chronic BLE ulcers/cellulitis non-adherent to medication regimens, p/w AMS and hyperglycemia. Initial Vital Signs Temp Pulse BP Pulse Ox 97.9 F 97 H 157/140 H 95 11/13/18 17:51 11/13/18 17:51 11/13/18 17:51 06/20/19 17:51 Initial fingerstick 409 Exam: As noted in Physical Exam section. DDX IBNLT: DKA, HHS, sepsis, simple hyperglycemia (e.g. stress hyperglycemia), alcoholic ketosis, starvation ketosis, uremic acidosis, possible provoking factors non-adherence, infection/inflammation/sepsis (i.e. UTI/pyelonephritis, PNA, bronchitis, skin infection, pancreatitis, etc), ACS, CVA/TIA, renal failure , other metabolic derangement, etc. 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 RAD/CHEST X-RAY PORTABLE* Chest: Sepsis Single AP view of the chest reveals a prominent mediastinum with some mild congestive changes but no sign of infiltrate. A pneumothorax, pleural fluid or atelectasis is not seen. Correlation recommended. Laboratory Tests 11/13/18 11/13/18 11/13/18 17:24 17:48 17:48 WBC 20.2 H RBC 4.26 Hgb 11.8 Hct 36.5 MCV 85.6 MCH 27.7 MCHC 32.4 RDW 15.7 H Plt Count 287 MPV 10.2 Absolute Neuts (auto) 18.8 H Neutrophils % 92.9 H D Neutrophils % (Manual) 95.0 H Band Neutrophils % 3.0 Lymphocytes % 2.7 L D Lymphocytes % (Manual) 2.0 L D Monocytes % 3.8 Monocytes % (Manual) 0 L D Eosinophils % 0.1 D Eosinophils % (Manual) 0.0 D Basophils % 0.5 Basophils % (Manual) 0.0 Nucleated RBC % 0 Platelet Estimate Adequate PT with INR 14.60 H INR 1.23 H PTT (Actin FS) Puncture Site ABG pH ABG pCO2 at Pt Temp ABG pO2 at Pt Temp ABG HCO3 ABG O2 Sat (Measured) ABG O2 Content ABG Base Excess Kwesi Test VBG pH POC VBG pCO2 POC VBG pO2 VBG HCO3 VBG O2 Sat (Macho) VBG Base Excess Oxygen Flow Rate Sodium Potassium Chloride Carbon Dioxide Anion Gap BUN Creatinine Est GFR (CKD-EPI)AfAm Est GFR (CKD-EPI)NonAf POC Glucometer 409 Random Glucose Lactic Acid Calcium Total Bilirubin AST ALT Alkaline Phosphatase Ammonia Creatine Kinase Creatine Kinase Index CK-MB (CK-2) Troponin I Total Protein Albumin Salicylates Acetaminophen Alcohol, Quantitative Acetone, Qual 11/13/18 11/13/18 11/13/18 17:48 17:48 17:48 WBC RBC Hgb Hct MCV MCH MCHC RDW Plt Count MPV Absolute Neuts (auto) Neutrophils % Neutrophils % (Manual) Band Neutrophils % Lymphocytes % Lymphocytes % (Manual) Monocytes % Monocytes % (Manual) Eosinophils % Eosinophils % (Manual) Basophils % Basophils % (Manual) Nucleated RBC % Platelet Estimate PT with INR INR PTT (Actin FS) 32.3 Puncture Site ABG pH ABG pCO2 at Pt Temp ABG pO2 at Pt Temp ABG HCO3 ABG O2 Sat (Measured) ABG O2 Content ABG Base Excess Kwesi Test VBG pH POC VBG pCO2 POC VBG pO2 VBG HCO3 VBG O2 Sat (Macho) VBG Base Excess Oxygen Flow Rate Sodium 132 L Potassium 6.5 H* Chloride 108 H Carbon Dioxide 12 L Anion Gap 13 BUN 178.3 H* Creatinine 5.5 H Est GFR (CKD-EPI)AfAm 9.35 Est GFR (CKD-EPI)NonAf 8.07 POC Glucometer Random Glucose 435 H* Lactic Acid 1.5 Calcium 9.3 Total Bilirubin 0.2 AST 4 L ALT 15 Alkaline Phosphatase 172 H Ammonia Creatine Kinase 163 Creatine Kinase Index 1.7 CK-MB (CK-2) 2.8 Troponin I < 0.02 Total Protein 8.1 Albumin 3.2 L Salicylates < 1.7 L Acetaminophen < 2.0 L Alcohol, Quantitative < 3.0 Acetone, Qual Negative L 11/13/18 11/13/18 11/13/18 18:25 18:25 18:58 WBC RBC Hgb Hct MCV MCH MCHC RDW Plt Count MPV Absolute Neuts (auto) Neutrophils % Neutrophils % (Manual) Band Neutrophils % Lymphocytes % Lymphocytes % (Manual) Monocytes % Monocytes % (Manual) Eosinophils % Eosinophils % (Manual) Basophils % Basophils % (Manual) Nucleated RBC % Platelet Estimate PT with INR INR PTT (Actin FS) Puncture Site ABG pH ABG pCO2 at Pt Temp ABG pO2 at Pt Temp ABG HCO3 ABG O2 Sat (Measured) ABG O2 Content ABG Base Excess Kwesi Test VBG pH 7.14 L* POC VBG pCO2 32.2 L POC VBG pO2 49.7 H VBG HCO3 10.4 L VBG O2 Sat (Macho) 75.5 VBG Base Excess -17.6 L Oxygen Flow Rate Sodium Potassium Chloride Carbon Dioxide Anion Gap BUN Creatinine Est GFR (CKD-EPI)AfAm Est GFR (CKD-EPI)NonAf POC Glucometer 389 Random Glucose Lactic Acid Calcium Total Bilirubin AST ALT Alkaline Phosphatase Ammonia 48.90 H Creatine Kinase Creatine Kinase Index CK-MB (CK-2) Troponin I Total Protein Albumin Salicylates Acetaminophen Alcohol, Quantitative Acetone, Qual 11/13/18 19:11 WBC RBC Hgb Hct MCV MCH MCHC RDW Plt Count MPV Absolute Neuts (auto) Neutrophils % Neutrophils % (Manual) Band Neutrophils % Lymphocytes % Lymphocytes % (Manual) Monocytes % Monocytes % (Manual) Eosinophils % Eosinophils % (Manual) Basophils % Basophils % (Manual) Nucleated RBC % Platelet Estimate PT with INR INR PTT (Actin FS) Puncture Site Left radial ABG pH 7.20 L ABG pCO2 at Pt Temp 22.8 L ABG pO2 at Pt Temp 99.0 ABG HCO3 8.5 L ABG O2 Sat (Measured) 96.6 ABG O2 Content 8.6 L* ABG Base Excess -18.1 L Kwesi Test Positive VBG pH POC VBG pCO2 POC VBG pO2 VBG HCO3 VBG O2 Sat (Macho) VBG Base Excess Oxygen Flow Rate 21 Sodium Potassium Chloride Carbon Dioxide Anion Gap BUN Creatinine Est GFR (CKD-EPI)AfAm Est GFR (CKD-EPI)NonAf POC Glucometer Random Glucose Lactic Acid Calcium Total Bilirubin AST ALT Alkaline Phosphatase Ammonia Creatine Kinase Creatine Kinase Index CK-MB (CK-2) Troponin I Total Protein Albumin Salicylates Acetaminophen Alcohol, Quantitative Acetone, Qual Reassessment: Patient mentating much better than on arrival, answering questions , inappropriate laughing at times. Repeat VS: Laboratory Tests 11/13/18 11/13/18 11/13/18 17:24 17:48 17:48 WBC 20.2 H RBC 4.26 Hgb 11.8 Hct 36.5 MCV 85.6 MCH 27.7 MCHC 32.4 RDW 15.7 H Plt Count 287 MPV 10.2 Absolute Neuts (auto) 18.8 H Neutrophils % 92.9 H D Lymphocytes % 2.7 L D Monocytes % 3.8 Eosinophils % 0.1 D Basophils % 0.5 Nucleated RBC % 0 PT with INR 14.60 H INR 1.23 H PTT (Actin FS) Puncture Site ABG pH ABG pCO2 at Pt Temp ABG pO2 at Pt Temp ABG HCO3 ABG O2 Sat (Measured) ABG O2 Content ABG Base Excess Kwesi Test VBG pH POC VBG pCO2 POC VBG pO2 VBG HCO3 VBG O2 Sat (Macho) VBG Base Excess Oxygen Flow Rate Sodium Potassium Chloride Carbon Dioxide Anion Gap BUN Creatinine Est GFR (CKD-EPI)AfAm Est GFR (CKD-EPI)NonAf POC Glucometer 409 Random Glucose Lactic Acid Calcium Total Bilirubin AST ALT Alkaline Phosphatase Ammonia Creatine Kinase Creatine Kinase Index CK-MB (CK-2) Troponin I Total Protein Albumin Salicylates Acetaminophen Alcohol, Quantitative Acetone, Qual 11/13/18 11/13/18 11/13/18 17:48 17:48 17:48 WBC RBC Hgb Hct MCV MCH MCHC RDW Plt Count MPV Absolute Neuts (auto) Neutrophils % Lymphocytes % Monocytes % Eosinophils % Basophils % Nucleated RBC % PT with INR INR PTT (Actin FS) 32.3 Puncture Site ABG pH ABG pCO2 at Pt Temp ABG pO2 at Pt Temp ABG HCO3 ABG O2 Sat (Measured) ABG O2 Content ABG Base Excess Kwesi Test VBG pH POC VBG pCO2 POC VBG pO2 VBG HCO3 VBG O2 Sat (Macho) VBG Base Excess Oxygen Flow Rate Sodium 132 L Potassium 6.5 H* Chloride 108 H Carbon Dioxide 12 L Anion Gap 13 BUN 178.3 H* Creatinine 5.5 H Est GFR (CKD-EPI)AfAm 9.35 Est GFR (CKD-EPI)NonAf 8.07 POC Glucometer Random Glucose 435 H* Lactic Acid 1.5 Calcium 9.3 Total Bilirubin 0.2 AST 4 L ALT 15 Alkaline Phosphatase 172 H Ammonia Creatine Kinase 163 Creatine Kinase Index 1.7 CK-MB (CK-2) 2.8 Troponin I < 0.02 Total Protein 8.1 Albumin 3.2 L Salicylates < 1.7 L Acetaminophen < 2.0 L Alcohol, Quantitative < 3.0 Acetone, Qual Negative L 11/13/18 11/13/18 11/13/18 18:25 18:25 18:58 WBC RBC Hgb Hct MCV MCH MCHC RDW Plt Count MPV Absolute Neuts (auto) Neutrophils % Lymphocytes % Monocytes % Eosinophils % Basophils % Nucleated RBC % PT with INR INR PTT (Actin FS) Puncture Site ABG pH ABG pCO2 at Pt Temp ABG pO2 at Pt Temp ABG HCO3 ABG O2 Sat (Measured) ABG O2 Content ABG Base Excess Kwesi Test VBG pH 7.14 L* POC VBG pCO2 32.2 L POC VBG pO2 49.7 H VBG HCO3 10.4 L VBG O2 Sat (Macho) 75.5 VBG Base Excess -17.6 L Oxygen Flow Rate Sodium Potassium Chloride Carbon Dioxide Anion Gap BUN Creatinine Est GFR (CKD-EPI)AfAm Est GFR (CKD-EPI)NonAf POC Glucometer 389 Random Glucose Lactic Acid Calcium Total Bilirubin AST ALT Alkaline Phosphatase Ammonia 48.90 H Creatine Kinase Creatine Kinase Index CK-MB (CK-2) Troponin I Total Protein Albumin Salicylates Acetaminophen Alcohol, Quantitative Acetone, Qual 11/13/18 19:11 WBC RBC Hgb Hct MCV MCH MCHC RDW Plt Count MPV Absolute Neuts (auto) Neutrophils % Lymphocytes % Monocytes % Eosinophils % Basophils % Nucleated RBC % PT with INR INR PTT (Actin FS) Puncture Site Left radial ABG pH 7.20 L ABG pCO2 at Pt Temp 22.8 L ABG pO2 at Pt Temp 99.0 ABG HCO3 8.5 L ABG O2 Sat (Measured) 96.6 ABG O2 Content 8.6 L* ABG Base Excess -18.1 L Kwesi Test Positive VBG pH POC VBG pCO2 POC VBG pO2 VBG HCO3 VBG O2 Sat (Macho) VBG Base Excess Oxygen Flow Rate 21 Sodium Potassium Chloride Carbon Dioxide Anion Gap BUN Creatinine Est GFR (CKD-EPI)AfAm Est GFR (CKD-EPI)NonAf POC Glucometer Random Glucose Lactic Acid Calcium Total Bilirubin AST ALT Alkaline Phosphatase Ammonia Creatine Kinase Creatine Kinase Index CK-MB (CK-2) Troponin I Total Protein Albumin Salicylates Acetaminophen Alcohol, Quantitative Acetone, Qual Insulin drip started as patient is not hypokalemic. IVF continue to run. Vital Signs Temperature 99.4 F 11/13/18 18:30 Pulse Rate 100 H 11/13/18 18:30 Respiratory Rate 18 11/13/18 18:30 Blood Pressure 157/140 H 11/13/18 17:51 O2 Sat by Pulse Oximetry (%) 97 11/13/18 18:30 At about 18:40 we are called into the patient's room for telemetry reading c/f torsade de pointe. This lasted about 20 second sustained, patient briefly lost consciousness. Rhythm self-converted back to a-fib/a-flutter rate in the low 100s with pulses palpable. Patient subsequently talking with us. Intermittent V-tach subsequently without any loss of pulses or consciousness. Patient states asymptomatic. 2 gm magnesium IVPB started immediately. Patient also given 1 amp bicarb. She continues to have intermittent v-tach lasting 5 seconds each with rates in 160s, never pulseless. 11/13/18 19:10 Microblogged [facility] for admission to ICU. Blank Decision to Admit order is placed per ED protocol. I spoke with Eliu Beckman on with ICU and patient will be accepted for placement; he will see patient in the ED. Consult order placed to ICU accepting attending 11/13/18 19:[address] Crawford with [facility] cardiology ([facility] pref). He reviews the story and results, will consult while patient is inpatient. I spoke with Dr. Epstein; reviews labs and history, recommends 1 amp bicarb, continue fluids, recheck BMP. Also place Johnson to monitor UOP, then call him back with the results. 11/13/18 19:[address] Epstein; reviews labs and history, recommends 1 amp bicarb, continue fluids, recheck BMP. Also place Johnson to monitor UOP, then call him back with the results. 11/13/18 19:50 I spoke with Tyrell Casillas who will come see the patient in the ED. If needs emergent HD will need to place catheter in the ED. Vital Signs Temperature 99.4 F 11/13/18 18:30 Pulse Rate 82 11/13/18 20:12 Respiratory Rate 21 H 11/13/18 20:12 Blood Pressure 137/75 11/13/18 20:12 O2 Sat by Pulse Oximetry (%) 100 11/13/18 20:12 11/13/18 21:31 I called Lab, asked for chemistry values MARY, they notify me at this time that BUN>150 and Cr 4.6. 11/13/18 21:55 Repeat chemistries reported and are much improved, BG still in the 300s. UOP from Johnson is >400cc since placed ~[address] Epstein is updated on the labs, in agreement on continued fluid resuscitation and recommends q4h labs. Emergent HD not indicated at this time, patient's BP is well maintained never hypotensive, no CVC required. ICU is updated and on board with plan; she is ready to go to the unit. *DC/Admit/Observation/Transfer Diagnosis at time of Disposition: Ventricular tachyarrhythmia, Hyperglycemia Sepsis Qualifiers: Sepsis type: sepsis due to unspecified organism Qualified Code(s): A41.9 - Sepsis, unspecified organism Cellulitis Qualifiers: Site of cellulitis: unspecified site Qualified Code(s): L03.90 - Cellulitis, unspecified Renal failure Qualifiers: Renal failure chronicity: acute Acute renal failure type: unspecified Qualified Code(s): N17.9 - Acute kidney failure, unspecified - Discharge Dispostion Condition at time of disposition: Guarded Decision to Admit order: Yes - Referrals - Patient Instructions - Post Discharge Activity
[2018-11-13 18:08] LABS: BASO % 0.5 % (0-2.0); EOS % 0.1 % (0-4.5); HEMATOCRIT 36.5 % (32.4-45.2); HEMOGLOBIN 11.8 GM/dL (10.7-15.3); LYMPH % 2.7 % (8-40); MCH 27.7 pg (25.7-33.7); MCHC 32.4 g/dl (32.0-36.0); MEAN CELL VOLUME 85.6 fl (80-96); MEAN PLT VOLUME 10.2 fl (7.5-11.1); MONO % 3.8 % (3.8-10.2); NEUT % 92.9 % (42.8-82.8); PLATELET COUNT 287 K/MM3 (134-434); RBC 4.26 M/mm3 (3.60-5.2); RDW 15.7 % (11.6-15.6); WHITE BLOOD COUNT 20.2 K/mm3 (4.0-10.0)
[2018-11-13] MEDS ORDERED: MEROPENEM 1 GM in DEXTROSE 5%-WATER 100 ML IVPB ONE (18:17)
[2018-11-13] MEDS ORDERED: VANCOMYCIN HCL 1,500 MG in DEXTROSE 5%-WATER - 500 ML IVPB ONE (18:17)
[2018-11-13 18:19] LABS: INR 1.23 (0.83-1.09); PROTHROMBIN TIME (PATIENT) 14.6 SEC (9.7-13.0)
[2018-11-13] MEDS ORDERED: SODIUM CHLORIDE 0.9% 500 ML INFUS.BAG IV ONE ×2 (18:22→21:38)
[2018-11-13] MEDS ORDERED: MEROPENEM 1 GM VIAL (RESTRICTED TO ID) IVPB ONE (18:23)
[2018-11-13] MEDS ORDERED: ACETAMINOPHEN 1000 MG/100 ML VIAL (NON FORMULARY) IVPB ONE (18:36)
[2018-11-13 18:42] LABS: CHLORIDE 108 mmol/L (98-107); CREATININE 5.5 mg/dL (0.55-1.3); SODIUM 132 mmol/L (136-145)
[2018-11-13 18:43] LABS: ALBUMIN 3.2 g/dl (3.4-5.0); ALK PHOS 172 U/L (45-117); ANION GAP 13 MMOL/L (8-16); BILIRUBIN,TOTAL 0.2 mg/dL (0.2-1); CALCIUM 9.3 mg/dL (8.5-10.1); CO2 12 mmol/L (21-32); SGOT/AST 4 U/L (15-37); SGPT/ALT 15 U/L (13-61); TOT PROT 8.1 g/dl (6.4-8.2)
[2018-11-13 18:45] LABS: VENOUS PC02 32.2 mmHg (41-51); VENOUS PO2 49.7 mmHg (30-40)
[2018-11-13 18:47] LABS: BLOOD UREA NITROGEN 178.3 mg/dL (7-18); GLUCOSE,RANDOM 435 mg/dL (74-106); POTASSIUM 6.5 mmol/L (3.5-5.1)
[2018-11-13] MEDS ORDERED: MAGNESIUM 1GM/D5W - 2 GM/200 ML IVPB IVPB ONE ×2 (18:48→19:35)
[2018-11-13] MEDS ORDERED: INSULIN REGULAR HUMAN 100 UNITS/ML *VIAL ONE ×2 (18:48→22:24)
[2018-11-13] MEDS ORDERED: CALCIUM GLUCONATE 10% - 1,000 MG/10 ML VIAL IVPUSH ONE (18:50)
[2018-11-13] MEDS ORDERED: CALCIUM GLUCONATE 10% - 1,000 MG/10 ML VIAL ONE ×2 (18:51→19:35)
[2018-11-13] MEDS ORDERED: MAGNESIUM SULF 50% (8.12 MEQ/2 ML-1 GM VIAL) IVPB ONE (18:51)
[2018-11-13] MEDS ORDERED: INSULIN REGULAR 100 UNITS in SODIUM CHLORIDE 99 ML IVPB SCH ×2 (19:00→19:45)
[2018-11-13 19:20] LABS: ACETONE SERUM NEGATIVE (NEGATIVE)
[2018-11-13 19:34] LABS: ARTERIAL BLD GAS O2 SATURATION 96.6 % (95-98); ARTERIAL BLOOD GAS BASE EXCESS -18.1 meq/l (-2-2); ARTERIAL BLOOD GAS PCO2 22.8 mmHg (35-45)
[2018-11-13] MEDS ORDERED: VANCOMYCIN 500 MG VIAL (RESTRICTED TO ID ONLY) ONE (19:35)
[2018-11-13] MEDS ORDERED: ACETAMINOPHEN INJECTION 100 ML IVPB ONE (19:35)
[2018-11-13] MEDS ORDERED: VANCOMYCIN 1 GRAM (PRE-DOCKED) 1,000 MG/250 ML BAG IVPB ONE (19:35)
[2018-11-13 19:37] LABS: ALLENS TEST POSITIVE
[2018-11-13 19:38] LABS: VENOUS PH 7.14 (7.31-7.41)
[2018-11-13] MEDS ORDERED: SODIUM BICARBONATE 8.4% 50 MEQ/50 ML DISP.SYRIN IVPUSH ONE (19:43)
--- NOTE | 2018-11-13 19:47 | PDOC ---
Documentation entered by Laura Eid SCRIBE, acting as scribe for Nadja Zamudio DO. Nadja Zamudio DO: This documentation has been prepared by the zekeibricki, Laura Eid SCRIBE, under my direction and personally reviewed by me in its entirety. I confirm that the documentation accurately reflects all work, treatment, procedures, and medical decision making performed by me. Attending Attestation - Resident Resident Name: GinnyCherise - ED Attending Attestation I have performed the following: I have examined & evaluated the patient, The case was reviewed & discussed with the resident, I agree w/resident's findings & plan, Exceptions are as noted - HPI HPI: 11/13/18 19:54 The patient is a 53-year-old female with a past medical history significant for IDDM, B/L lower extremity wound (no wound care provider), Afib (on eliquis), HTN , asthma, renal insufficiency, and bipolar disorder presents to the emergency department with AMS and hypotension. At baseline, the patient is a poor historian. History obtained through the brother. The patient finished her insulin several days ago and hasnt been compliant for the past 2 days. The patient was at the pharmacy to get the prescription refilled, and reports taking 20 units of Novolog after refill. The patient is noted to have bilateral wound to the lower extremity, which she reports she self manages. The patient states she changes the dressing every 2 days. Denies wound care or vascular follow up. Last dressing change was yesterday. Denies alcohol use. PCP: Dr. Maxwell (recent follow up was about 2 weeks ago). - Physicial Exam PE: 11/13/18 20:55 Constitutional: +altered. Awake, alert. . Head: Normocephalic. Atraumatic Eyes: PERRL. EOMI. Conjunctivae are not pale. ENT: dry Mucous membranes. posterior pharynx without exudate or erythema. Uvula midline. Neck: Supple. No lymphadenopathy. Cardiovascular: +tachycardia. No rubs or gallops. Pulmonary/Chest: +typenic. Clear to auscultation bilaterally No wheezing, rales or rhonchi. Abdominal: +soft, mild diffused tenderness, obese. No rebound, guarding or rigidity. Back: No CVA tenderness. Musculoskeletal: No edema. No cyanosis. No clubbing. Skin: +cellulitis from knee to ankle b/l ulceration and purulent drainage, foul smelling, and necrotic tissue. Skin is warm. Neurological: +no focal findings. Ambulatory with assistance. Altered, alert. Cranial nerves II-XII are grossly intact. Normal speech Psychiatric: +altered. - Critical Care Time Total Critical Care Time: 90 Critical Care Statement: The care of this patient involved high complexity decision making to prevent further life threatening deterioration of the patient 's condition and/or to evaluate & treat vital organ system(s) failure or risk of failure. - Medical Decision Making 11/13/18 19:39 I, Dr. Nadja Zamudio, DO, attest that this document has been prepared under my direction and personally reviewed by me in its entirety. I further attest, that it accurately reflects all work, treatment, procedures and medical decision -making performed by me. 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 Agee, cardiology, and nephrology pt will be admitted to the ICU hyperkalemia, renal failure, hyperglycemia, toxic metabolic encephalopathy 11/13/18 19:44 pt also with cellulitis and sepsis from her leg wounds 11/13/18 19:46 dr. ramirez recommends amp push of bicarb 11/13/18 21:[address] ramirez again, continue insulin, continue ivf, icu admit, labs q4 Heart Score/ECG Review - ECG Intrepretation Comment:: 11/13/18 19:45 afib at 95, nl axis, st depression with t wave inversions lateral leads
[2018-11-13] MEDS ORDERED: SODIUM BICARBONATE 8.4% 50 MEQ/50 ML VIAL ONE (20:04)
--- NOTE | 2018-11-13 20:05 | CONSULT ---
Consultation: Update 2: Pt's MAPs notable for 50-55 on multiple BP checks. Likely related to unbalanced Starling curve. Held all fluids at this point and noted UOP >50cc/kg/ hr via Johnson collection. Central line consent was obtained by brother over telephone and placed in physical chart. Pt's BP stabilized and MAPs of 65+ now noted on repeat. BMP to be obtained for potassium . UPDATE 1: Pt arrived at unit tremulousness and in moderated distress. When placed on overhead monitor torsade de pointe telemetry was noted. Pads were placed immediately, however upon evaluation of the Zohl monitor it was artifact with underlying Afib with RVR. Pt was bolused 2L, stat labs (CBC, BMP, LA, BNP) were drawn, and pt was given amiodarone 150mg x1. Pt's HR decreased to 80-90's in atrial fibrillation and pt's tremulousness were slowly improved with fluids. Pt BP throughout remained stable and pt remained conscious however as confused upon initial evaluation. Pt was placed on NS@100cc/hr after her boluses for maintenance CONSULT SERVICE: ICU Resident HISTORY OF PRESENT ILLNESS: 53yo F with h/o of morbid obesity, b/l chronic venous stasis ulcerations, Afib (Eliquis), HTN, T2DM, HLD, and noncompliance who presents today with altered mental status and lethargy. Pt is poor historian due to her clinical status and history is obtained via her brother and EMR system. Pt was previously colonized with MRSA and had multiple visit for chronic leg wounds. 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 Pt's brother picked up her insulin and gave the pt 20 units of Novolog due to her confusion and lethargy. EMS was called and she was brought to ED for further evaluation. Pt in the ED was noted to have 30 seconds of polymorphic Vtach (TDP) and reportedly was unconscious for about 1-5 seconds. PT was given IV Mag 2gm, CaGluc, Insulin and Bicarb. Pt regained consciousness and had no further signs of torsades after the administration of her medications. Currently pt is talkative, however still confused and in mild distress. REVIEW OF SYSTEMS: Unable to obtain due to pt's clinical status PHYSICAL EXAMINATION Vital Signs 11/13/18 11/13/18 17:51 18:30 Temperature 97.9 F 99.4 F Pulse Rate 100 H Pulse Rate [ 97 H Right Brachial] Respiratory 18 Rate Blood Pressure 157/140 H [Right Arm] O2 Sat by Pulse 95 97 Oximetry (%) GENERAL: Mild distress, awake, alert, and oriented to self and place and somewhat confused, somnolent HEENT: NC/AT, ISAIAH, sclera anicteric, dry mucosa noted NECK: Excessive soft tissues, no overt JVD however difficult to assess LUNGS: Distant breath sounds, diminished bibasillarly. No wheezes. No accessory muscle use. 2LNC SpO2 95% HEART: Distant cardiac sounds, Irregularly irregular rhythm with normal rate, normal S1 and S2 without murmur ABDOMEN: Soft, obese, nondistended, mild tenderness in RLQ, normoactive BS, no guarding. MUSCULOSKELETAL: No CVA tenderness. EXTREMITIES: 2+ DP pulses, hot, well-perfused. Large erythematous stasis wounds with purulent discharge (R>L) with iodoform and gauze bandage, malodorous PSYCHIATRIC: Cooperative. Good eye contact. Appropriate mood and affect. SKIN: Warm, dry, no rashes, lesions as EXT exam Laboratory Results 11/13/18 11/13/18 11/13/18 17:24 17:48 17:48 WBC 20.2 H RBC 4.26 Hgb 11.8 Hct 36.5 MCV 85.6 MCH 27.7 MCHC 32.4 RDW 15.7 H Plt Count 287 MPV 10.2 Absolute Neuts (auto) 18.8 H Neutrophils % 92.9 H D Lymphocytes % 2.7 L D Monocytes % 3.8 Eosinophils % 0.1 D Basophils % 0.5 Nucleated RBC % 0 PT with INR 14.60 H INR 1.23 H PTT (Actin FS) Puncture Site ABG pH ABG pCO2 at Pt Temp ABG pO2 at Pt Temp ABG HCO3 ABG O2 Sat (Measured) ABG O2 Content ABG Base Excess Kwesi Test VBG pH POC VBG pCO2 POC VBG pO2 VBG HCO3 VBG O2 Sat (Macho) VBG Base Excess Oxygen Flow Rate Sodium Potassium Chloride Carbon Dioxide Anion Gap BUN Creatinine Est GFR (CKD-EPI)AfAm Est GFR (CKD-EPI)NonAf POC Glucometer 409 Random Glucose Lactic Acid Calcium Total Bilirubin AST ALT Alkaline Phosphatase Ammonia Creatine Kinase Creatine Kinase Index CK-MB (CK-2) Troponin I Total Protein Albumin Salicylates Acetaminophen Alcohol, Quantitative Acetone, Qual 11/13/18 11/13/18 11/13/18 17:48 17:48 17:48 WBC RBC Hgb Hct MCV MCH MCHC RDW Plt Count MPV Absolute Neuts (auto) Neutrophils % Lymphocytes % Monocytes % Eosinophils % Basophils % Nucleated RBC % PT with INR INR PTT (Actin FS) 32.3 Puncture Site ABG pH ABG pCO2 at Pt Temp ABG pO2 at Pt Temp ABG HCO3 ABG O2 Sat (Measured) ABG O2 Content ABG Base Excess Kwesi Test VBG pH POC VBG pCO2 POC VBG pO2 VBG HCO3 VBG O2 Sat (Macho) VBG Base Excess Oxygen Flow Rate Sodium 132 L Potassium 6.5 H* Chloride 108 H Carbon Dioxide 12 L Anion Gap 13 BUN 178.3 H* Creatinine 5.5 H Est GFR (CKD-EPI)AfAm 9.35 Est GFR (CKD-EPI)NonAf 8.07 POC Glucometer Random Glucose 435 H* Lactic Acid 1.5 Calcium 9.3 Total Bilirubin 0.2 AST 4 L ALT 15 Alkaline Phosphatase 172 H Ammonia Creatine Kinase 163 Creatine Kinase Index 1.7 CK-MB (CK-2) 2.8 Troponin I < 0.02 Total Protein 8.1 Albumin 3.2 L Salicylates < 1.7 L Acetaminophen < 2.0 L Alcohol, Quantitative < 3.0 Acetone, Qual Negative L 11/13/18 11/13/18 11/13/18 18:25 18:25 18:58 WBC RBC Hgb Hct MCV MCH MCHC RDW Plt Count MPV Absolute Neuts (auto) Neutrophils % Lymphocytes % Monocytes % Eosinophils % Basophils % Nucleated RBC % PT with INR INR PTT (Actin FS) Puncture Site ABG pH ABG pCO2 at Pt Temp ABG pO2 at Pt Temp ABG HCO3 ABG O2 Sat (Measured) ABG O2 Content ABG Base Excess Kwesi Test VBG pH 7.14 L* POC VBG pCO2 32.2 L POC VBG pO2 49.7 H VBG HCO3 10.4 L VBG O2 Sat (Macho) 75.5 VBG Base Excess -17.6 L Oxygen Flow Rate Sodium Potassium Chloride Carbon Dioxide Anion Gap BUN Creatinine Est GFR (CKD-EPI)AfAm Est GFR (CKD-EPI)NonAf POC Glucometer 389 Random Glucose Lactic Acid Calcium Total Bilirubin AST ALT Alkaline Phosphatase Ammonia 48.90 H Creatine Kinase Creatine Kinase Index CK-MB (CK-2) Troponin I Total Protein Albumin Salicylates Acetaminophen Alcohol, Quantitative Acetone, Qual 11/13/18 19:11 WBC RBC Hgb Hct MCV MCH MCHC RDW Plt Count MPV Absolute Neuts (auto) Neutrophils % Lymphocytes % Monocytes % Eosinophils % Basophils % Nucleated RBC % PT with INR INR PTT (Actin FS) Puncture Site Left radial ABG pH 7.20 L ABG pCO2 at Pt Temp 22.8 L ABG pO2 at Pt Temp 99.0 ABG HCO3 8.5 L ABG O2 Sat (Measured) 96.6 ABG O2 Content 8.6 L* ABG Base Excess -18.1 L Kwesi Test Positive VBG pH POC VBG pCO2 POC VBG pO2 VBG HCO3 VBG O2 Sat (Macho) VBG Base Excess Oxygen Flow Rate 21 Sodium Potassium Chloride Carbon Dioxide Anion Gap BUN Creatinine Est GFR (CKD-EPI)AfAm Est GFR (CKD-EPI)NonAf POC Glucometer Random Glucose Lactic Acid Calcium Total Bilirubin AST ALT Alkaline Phosphatase Ammonia Creatine Kinase Creatine Kinase Index CK-MB (CK-2) Troponin I Total Protein Albumin Salicylates Acetaminophen Alcohol, Quantitative Acetone, Qual Active Medications Generic Name Dose Route Start Last Admin Trade Name Freq PRN Reason Stop Dose Admin Vancomycin HCl 1,500 mg/ 500 mls @ 250 mls/hr 11/13/18 18:17 Dextrose IVPB 11/13/18 20:16 ONCE ONE Insulin Human Regular 100 100 mls @ 1 mls/hr 11/13/18 19:00 units/ Sodium Chloride IVPB TITR LANCE Protocol 0.1 UNITS/KG/HR Insulin Human Regular 100 100 mls @ 1 mls/hr 11/13/18 19:45 units/ Sodium Chloride IVPB TITR LANCE Protocol 0.1 UNITS/KG/HR ASSESSMENT/PLAN: Acute toxic metabolic encephalopathy Polymorphic Ventricular Tachycardia Sepsis 2/2 to cellulitis; r/o bacteremia Hyperglycemia Acute kidney failure Uremia Metabolic acidosis Hyperkalemia T2DM Morbid obesity HTN --Multiple factors affecting encephalopathy --Worsening sepsis and acidosis vs. uremia vs. electrolyte abnormalities vs. hyperglycemic state --CT Head negative for acute pathology --Neuro checks --NPO --Fall precautions --Unclear etiology of acute renal failure --? excessive NSAID use vs. uncontrolled HTN/T2DM vs. dehydration/acidemia --Renal and bladder US ordered --Johnson placed for accurate I/O's and UOP monitoring --Urine studies ordered for FeNa --Dr. Epstein consulted for ? emergent dialysis given uremia and hyperkalemia --No emergent dialysis tonight given rpt CMP showing improvement on all fronts; will assess tomorrow AM --BMP q4h --Monitor Potassium and Bicarb dose given in ED --Continue Vancomycin and Meropenem --Will need to renal dose and follow per level --ID consulted --Monitor for fevers and PRN Tylenol --F/u blood cultures --NS@100cc/hr given sepsis picture --Isolation precautions --Closed anion gap, no acetones noted in urine, acidosis likely 2/2 to ARF --Will transition from insulin gtt to ISS and long-acting coverage given improved glucose --BGM q4h --ISS q4h --No evidence of TDP since one episode --Likely 2/2 to abnormal electrolytes --s/p 2gm Mg in ED; MG now 3 (target >2.0) --Keep pads on patient and monitor for arrhythmias via cardiac monitoring --Echocardiogram --Cardiology consulted --Atrial fibrillation rate controlled --Given significant renal failure will hold Eliquis, check coags, and discuss about heparin gtt in AM for AC coverage --Resume home antihypertensives as hemodynamics allow FEN: Fluids: NS@100cc/hr Electrolyte abnormalities: HyperK (as above) Nutrition: NPO except medications until stabilization PPX: DVT - Previously on eliquis, will discuss about heparin gtt for AC GI - Not indicated GOC: Full code dispo: Continue ICU monitoring Case discussed with primary team Danie Casillas DO -IM PGY-2 Visit type - Emergency Visit Emergency Visit: Yes ED Registration Date: 11/13/18 Care time: The patient presented to the Emergency Department on the above date and was hospitalized for further evaluation of their emergent condition. - New Patient This patient is new to me today: Yes Date on this admission: 11/13/18 - Critical Care Critical Care patient: Yes Total Critical Care Time (in minutes): 50 Critical Care Statement: The care of this patient involved high complexity decision making to prevent further life threatening deterioration of the patient 's condition and/or to evaluate & treat vital organ system(s) failure or risk of failure.
[2018-11-13 20:10] LABS: PLATELET ESTIMATE ADEQUATE
[2018-11-13 20:56] LABS: BASO % 0.3 % (0-2.0); EOS % 0.1 % (0-4.5); HEMATOCRIT 34.5 % (32.4-45.2); HEMOGLOBIN 11.1 GM/dL (10.7-15.3); LYMPH % 3.6 % (8-40); MCH 27.6 pg (25.7-33.7); MCHC 32.2 g/dl (32.0-36.0); MEAN CELL VOLUME 85.9 fl (80-96); MEAN PLT VOLUME 9.9 fl (7.5-11.1); MONO % 1.8 % (3.8-10.2); NEUT % 94.2 % (42.8-82.8); PLATELET COUNT 237 K/MM3 (134-434); RBC 4.02 M/mm3 (3.60-5.2); RDW 15.4 % (11.6-15.6); WHITE BLOOD COUNT 15.5 K/mm3 (4.0-10.0)
--- NOTE | 2018-11-13 21:03 | HP ---
Admitting History and Physical - Primary Care Physician PCP: Onur Maxwell - Admission Chief Complaint: Altered mental status History of Present Illness: 53 yrs old F poor historian , multiple Co-morbidities, non compliant, last F/U PCP in May 2018, is bed side information s gathered from Chart , patient and evaluated with ICU team, H/O Morbid obesity, B/L LE chronic Venous stasis ulceration, Chronic Afib on AC, HTN, poorly controlled T2DM, Dyslipedemia, Bipolar , previously admitted in 2018 with NOVA received HD and discharged after prolonged Hospitalization last hospitalization in 06/2018 at [place] Operated for appendectomy, 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 , today present to Ed with altered metal status and letahrgy as per patient didnt take insulin for past few days today picjked up the Insulin and Inhected 20 units of Novalog felt unwell with confusion, lethargy and SOB so 911 was called came to Ed for evaluation, on arrival to Ed somnolent, lethargic , hypotensive recived IV Hydration, lab showed NOVA with BUN 178 Creat 6.5 and K 6.5 with hyperglycemia, elevated TWBC , on monitor developed Polymorphic Vtach lasted for 30 seconds received IV Mag 2gm, calcium Gluconte , Insulin and Bicarb , conveted to Afib at the time of examination, patient is in Afib , stable BP and O2 saturation denies any SOB, chest pain, palpation, vomiting ord diarrhea, c./o pain at Rt LQ but abd is soft , patient is somnolent but answering appropitely no witnesed seizure or fall at home. - Past Medical History Cardiovascular: Yes: AFIB, HTN Pulmonary: Yes: Asthma Gastrointestinal: Yes: Other (gallstones) Hepatobiliary: Yes: Cholelithiasis (passed without surgery), Other (fatty liver) Renal/: Yes: Renal Inusuff Infectious Disease: Yes: Other (LE cellulitis) Psych: Yes: Bipolar Endocrine: Yes: Diabetes Mellitus Dermatology: Yes: Cellulitis (b/l LE with ulcerations) - Smoking History Smoking history: Former smoker Have you smoked in the past 12 months: No Aproximately how many cigarettes per day: 0 If you are a former smoker, when did you quit?: quit age 13 - Alcohol/Substance Use Hx Alcohol Use: No History of Substance Use: reports: Prescription (narcotics) - Social History ADL: Independent 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 History of Recent Travel: No Home Medications - Allergies Allergies/Adverse Reactions: Allergies Allergy/AdvReac Type Severity Reaction Status Date / Time nut - unspecified Allergy Verified 11/13/18 21:32 Penicillins Allergy Verified 11/13/18 21:32 walnut Allergy Verified 11/13/18 21:32 - Home Medications Home Medications: Ambulatory Orders Budesonide/Formeterol Fumarate [SYMBICORT 80/4.5mcg -] 2 puff IH BID inhaler Insulin Sliding Scale [Novolog Vial Sliding Scale -] 1 vial SQ ACHS units 02/20 Apixaban [Eliquis -] 5 mg PO BID tablet 07/04/17 Pantoprazole Sodium [Protonix -] 40 mg PO DAILY tablet.ec 07/04/17 Enalapril Maleate 2.5 mg PO DAILY 07/15/18 Furosemide 40 mg PO ASDIR 07/15/18 Gabapentin 300 mg PO DAILY 07/15/18 Potassium Chloride 10 meq PO DAILY 07/15/18 Tramadol HCl 50 mg PO PRN 07/15/18 Apixaban [Eliquis -] 5 mg PO BID tablet 07/22/18 Digoxin [Lanoxin -] 0.125 mg PO DAILY #30 tablet 07/22/18 Insulin Glargine,Hum.rec.anlog [Toujeo Max Solostar] 300 unit SQ BID #15 insuln.pen 07/22/18 Metoprolol Tartrate [Lopressor -] 25 mg PO DAILY #30 tablet 07/22/18 Pantoprazole Sodium [Protonix -] 40 mg PO DAILY tablet.ec 07/22/18 Polyethylene Glycol 3350 [Miralax 119 gm Btl -] 17 gm PO DAILY bottle 07/22/18 hydrOXYzine HCL [Atarax -] 25 mg PO Q6H PRN #30 tablet 07/22/18 metroNIDAZOLE [Flagyl -] 500 mg PO TID #15 tablet 07/22/18 traMADol HCL [Ultram -] 50 mg PO Q6H PRN tablet MDD 4 07/22/18 Family Disease History - Family Disease History Family Disease History: Other: Father ( age 50 CVA), Mother ( 82 ), Brother (stomach cancer), Sister (breast cancer) Review of Systems - Review of Systems Constitutional: reports: Lethargy. denies: Chills, Diaphoresis, Fever Eyes: denies: Blind Spots, Blurred Vision, Double Vision HENT: denies: Difficult Swallowing, Ear Discharge, Ear Pain Neck: denies: Decreased ROM, Lumps, Pain on Movement Cardiovascular: reports: Edema, Shortness of Breath. denies: Chest Pain, Palpitations Respiratory: reports: Snoring. denies: Cough, Exercise Intolerance, Orthopnea Gastrointestinal: reports: Abdominal Pain, Nausea. denies: Constipation, Diarrhea, Vomiting Genitourinary: denies: Burning, Discharge, Dysuria Integumentary: reports: Wound (B/L LE) Neurological: reports: Change in LOC, Confusion Physical Examination Vital Signs: Vital Signs Temperature 99.4 F 11/13/18 18:30 Pulse Rate 82 11/13/18 20:12 Respiratory Rate 21 H 11/13/18 20:12 Blood Pressure 137/75 11/13/18 20:12 O2 Sat by Pulse Oximetry (%) 100 11/13/18 20:12 Midde aged dishevealed F somnolent not in acute distress HEENT: Mm dry poor hygeine, NECK: No JND No Bruit CHEST: CTA B/L CVS: S1S2 Irr heart sound are audiable ABD: Obese , diffuse tenderness, soft, no rebound or gaurding, Bs + EXT" B/L LE Venous stasis ulcer with exudate and surrounding 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, confused, but answeing appropitely warae that she is in hospital and able to pr Labs: CBC,CMP WBC 11/13/18 20:40 RBC 4.02 M/mm3 (3.60-5.2) 11/13/18 20:40 Hgb 11.1 GM/dL (10.7-15.3) 11/13/18 20:40 Hct 34.5 % (32.4-45.2) 11/13/18 20:40 MCV 85.9 fl (80-96) 11/13/18 20:40 MCH 27.6 pg (25.7-33.7) 11/13/18 20:40 MCHC 32.2 g/dl (32.0-36.0) 11/13/18 20:40 RDW 15.4 % (11.6-15.6) 11/13/18 20:40 Plt Count 237 K/MM3 (134-434) 11/13/18 20:40 MPV 9.9 fl (7.5-11.1) 11/13/18 20:40 Absolute Neuts (auto) 14.6 K/mm3 (1.5-8.0) H 11/13/18 20:40 Neutrophils % 94.2 % (42.8-82.8) H 11/13/18 20:40 Neutrophils % (Manual) 95.0 % (42.8-82.8) H 11/13/18 17:48 Band Neutrophils % 3.0 % 11/13/18 17:48 Lymphocytes % 3.6 % (8-40) L D 11/13/18 20:40 Lymphocytes % (Manual) 2.0 % (8-40) L D 11/13/18 17:48 Monocytes % 1.8 % (3.8-10.2) L 11/13/18 20:40 Monocytes % (Manual) 0 % (3.8-10.2) L D 11/13/18 17:48 Eosinophils % 0.1 % (0-4.5) 11/13/18 20:40 Eosinophils % (Manual) 0.0 % (0-4.5) D 11/13/18 17:48 Basophils % 0.3 % (0-2.0) 11/13/18 20:40 Basophils % (Manual) 0.0 % (0-2.0) 11/13/18 17:48 Nucleated RBC % 0 % (0-0) 11/13/18 20:40 Platelet Estimate Adequate 11/13/18 17:48 Sodium 138 mmol/L (136-145) 11/13/18 20:40 Potassium 5.5 mmol/L (3.5-5.1) H 11/13/18 20:40 Chloride 114 mmol/L (98-107) H 11/13/18 20:40 Carbon Dioxide 14 mmol/L (21-32) L 11/13/18 20:40 Anion Gap 11 MMOL/L (8-16) 11/13/18 20:40 BUN 167.2 mg/dL (7-18) H* 11/13/18 20:40 Creatinine 4.6 mg/dL (0.55-1.3) H 11/13/18 20:40 Est GFR (CKD-EPI)AfAm 11.61 11/13/18 20:40 Est GFR (CKD-EPI)NonAf 10.01 11/13/18 20:40 POC Glucometer 389 UNITS (80-120) 11/13/18 18:58 Random Glucose 316 mg/dL (74-106) H* 11/13/18 20:40 Lactic Acid 1.5 mmol/L (0.4-2.0) 11/13/18 17:48 Calcium 8.7 mg/dL (8.5-10.1) 11/13/18 20:40 Phosphorus 6.3 mg/dL (2.5-4.9) H 11/13/18 20:40 Magnesium 3.4 mg/dL (1.8-2.4) H 11/13/18 20:40 Total Bilirubin 0.3 mg/dL (0.2-1) 11/13/18 20:40 AST 6 U/L (15-37) L 11/13/18 20:40 ALT 14 U/L (13-61) 11/13/18 20:40 Alkaline Phosphatase 155 U/L (45-117) H 11/13/18 20:40 Ammonia 48.90 umol/L (11-32) H 11/13/18 18:25 Creatine Kinase 163 U/L (26-192) 11/13/18 17:48 Creatine Kinase Index 1.7 % (0.0-5.0) 11/13/18 17:48 CK-MB (CK-2) 2.8 ng/mL (0.5-3.6) 11/13/18 17:48 Troponin I < 0.02 ng/ml (0.00-0.05) 11/13/18 17:48 Total Protein 7.2 g/dl (6.4-8.2) 11/13/18 20:40 Albumin 2.8 g/dl (3.4-5.0) L 11/13/18 20:40 ABG Results ABG pH 7.20 (7.35-7.45) L 11/13/18 19:11 ABG pCO2 at Pt Temp 22.8 mmHg (35-45) L 11/13/18 19:11 ABG pO2 at Pt Temp 99.0 mmHg (80-105) 11/13/18 19:11 ABG HCO3 8.5 mmol/L (22-27) L 11/13/18 19:11 ABG O2 Sat (Measured) 96.6 % (95-98) 11/13/18 19:11 ABG O2 Content 8.6 % vol (15-22) L* 11/13/18 19:11 ABG Base Excess -18.1 meq/l (-2-2) L 11/13/18 19:11 Imaging - Results Chest X-ray: Report Reviewed (No infiltrates) EKG: Report Reviewed (Afib low voltage ST -t chnages in lateral leads (same as base line)) Problem List - Problems (1) Encephalopathy due to metabolic factor or toxin Assessment/Plan: Altered mental stasus due to sever uremia as per improving, Ct headd no acute changes, no witnessed seizures at home, NPO, Neuro check, fall precautions , consider Neuro consult if localizing signs or worsening MS Code(s): ZNU0753 - (2) Metabolic acidosis Assessment/Plan: Due to ARF AG closed, Lactic acid normal, acetone negative no BHB are available F/U VBG Q 4 hrs with BMP, receive IV Bicarb and hydration. Code(s): E87.2 - ACIDOSIS (3) ARF (acute renal failure) Assessment/Plan: Due to dehydration possibility of NSAID abuse U Lytes calculate FeNA and Nephrology to evaluate for NOVA BMP Q 4 HRs, IP/OP Daily wt IV Hydration consider Johnson insertion after checking residual urine eventually will needs Renal ultrasound once stable.Hold Nephrotoxic drugs no NSAID use, meds at renal dose. Code(s): N17.9 - ACUTE KIDNEY FAILURE, UNSPECIFIED (4) Hyperkalemia Assessment/Plan: Due to NOVA Hold Code(s): E87.5 - HYPERKALEMIA (5) Polymorphic ventricular tachycardia Assessment/Plan: Due to metabolic , Mag is high now in NSR Target K less 5, target Mag > 2, hold Dig , PO K and ACEI F/U Dig level, cardiology consult, ECHO cardiogram ( low voltage EKG but almost same as base line , good intensity audiable heart sound) Code(s): I47.2 - VENTRICULAR TACHYCARDIA (6) Sepsis Assessment/Plan: Due to lower extermity wounds cont Meropenam and vanco by level. Code(s): A41.9 - SEPSIS, UNSPECIFIED ORGANISM Qualifiers: Sepsis type: sepsis due to unspecified organism Qualified Code(s): A41.9 - Sepsis, unspecified organism (7) Dehydration Assessment/Plan: IV Hydration F/U BMP Code(s): E86.0 - DEHYDRATION (8) Cellulitis Assessment/Plan: B/L LE Cellulitis with sepsis recived vancomycin F/U trough before nex dose, IV Meropenam , F/U wound culture, wound care and ID consult. Code(s): L03.90 - CELLULITIS, UNSPECIFIED Qualifiers: Site of cellulitis: unspecified site Qualified Code(s): L03.90 - Cellulitis , unspecified (9) Afib Assessment/Plan: Chronic rate controlled on apaxiban but now in NOVA Hold apaxiban f/u PT INR , please discuss with cardiology for Heparin bridging can be started in am. Code(s): I48.91 - UNSPECIFIED ATRIAL FIBRILLATION Qualifiers: Atrial fibrillation type: paroxysmal Qualified Code(s): I48.0 - Paroxysmal atrial fibrillation (10) DM2 (diabetes mellitus, type 2) Assessment/Plan: Uncontrolled on high dose of lantus consider starting 50% of home dose if Fs are persistently > 200 and patient is eating, no indication of drip cont correction dose R lispro q 6 hrly. Code(s): E11.9 - TYPE 2 DIABETES MELLITUS WITHOUT COMPLICATIONS Qualifiers: Diabetes mellitus half-way insulin use: with half-way use Diabetes mellitus complication detail: with other circulatory complications (11) Morbid (severe) obesity due to excess calories Assessment/Plan: nutrition consult as out patient. Code(s): E66.01 - MORBID (SEVERE) OBESITY DUE TO EXCESS CALORIES (12) Fatty (change of) liver, not elsewhere classified Assessment/Plan: Chronic Code(s): K76.0 - FATTY (CHANGE OF) LIVER, NOT ELSEWHERE CLASSIFIED (13) HTN (hypertension) Assessment/Plan: Well controlled resume home meds Code(s): I10 - ESSENTIAL (PRIMARY) HYPERTENSION
[2018-11-13 21:44] LABS: ALBUMIN 2.8 g/dl (3.4-5.0); BILIRUBIN,TOTAL 0.3 mg/dL (0.2-1); CALCIUM 8.7 mg/dL (8.5-10.1); CREATININE 4.6 mg/dL (0.55-1.3); MAGNESIUM 3.4 mg/dL (1.8-2.4); PHOSPHOROUS 6.3 mg/dL (2.5-4.9); POTASSIUM 5.5 mmol/L (3.5-5.1); TOT PROT 7.2 g/dl (6.4-8.2)
[2018-11-13 21:47] LABS: BLOOD UREA NITROGEN 167.2 mg/dL (7-18)
[2018-11-13 21:57] LABS: URINE APPEARANCE CLOUDY; URINE BILIRUBIN NEGATIVE (NEGATIVE); URINE COLOR YELLOW; URINE GLUCOSE (UA) NEGATIVE (NEGATIVE); URINE KETONE NEGATIVE (NEGATIVE); URINE LEUK ESTERASE NEGATIVE (NEGATIVE); URINE NITRITE NEGATIVE (NEGATIVE); URINE PROTEIN TRACE (NEGATIVE); URINE UROBILINOGEN 0.2 mg/dL (0.2-1.0)
[2018-11-13 22:17] LABS: PLATELET ESTIMATE ADEQUATE
[2018-11-13] MEDS ORDERED: LORazepam 2 MG/ML SDV VIAL ONE (22:18)
[2018-11-13] MEDS ORDERED: AMIODARONE HCL 150 MG/3 ML VIAL ONE (22:19)
[2018-11-13] MEDS ORDERED: LORazepam 2 MG/ML SDV VIAL IVPUSH ONE (22:20)
[2018-11-13] MEDS ORDERED: AMIODARONE HCL 150 MG/3 ML VIAL IVPUSH ONE (22:25)
[2018-11-13] MEDS ORDERED: SODIUM CHLORIDE 500 ML IV STA (22:30)
[2018-11-13] MEDS ORDERED: ALBUTEROL SO4 2.5/IPRATROPIUM 0.5 INH SOL 3 ML VIAL.NEB. NEB PRN (22:58)
[2018-11-13 23:32] LABS: HEMATOCRIT 38.4 % (32.4-45.2); HEMOGLOBIN 12.3 GM/dL (10.7-15.3); MCH 28.1 pg (25.7-33.7); MCHC 32.2 g/dl (32.0-36.0); MEAN CELL VOLUME 87.2 fl (80-96); PLATELET COUNT 219 K/MM3 (134-434); RDW 15.8 % (11.6-15.6); WHITE BLOOD COUNT 5.1 K/mm3 (4.0-10.0)
[2018-11-13] MEDS ORDERED: SODIUM CHLORIDE 1,000 ML IV SCH (23:45)
[2018-11-14 00:26] LABS: CARBOXYHEMOGLOBIN 1.5 % (0-2)
[2018-11-14 00:34] LABS: CALCIUM 8.9 mg/dL (8.5-10.1); CREATININE 4.3 mg/dL (0.55-1.3); N-TERMINAL BNP 1043.3 pg/ml (5-125); POTASSIUM 5.6 mmol/L (3.5-5.1)
[2018-11-14 00:36] LABS: BLOOD UREA NITROGEN 165.2 mg/dL (7-18)
[2018-11-14] MEDS: INSULIN SLIDING SCALE (NOVOLOG) 1 VIAL SQ SCH ×6 (00:48→20:52)
[2018-11-14] MEDS ORDERED: SODIUM CHLORIDE 1,000 ML IV STA ×4 (01:07→14:10)
[2018-11-14 06:01] LABS: COCAINE, UR NEGATIVE ng/ml (CUTOFF=300); METHADONE, UR NEGATIVE ng/ml (CUTOFF=300); OPIATES, URI NEGATIVE ng/ml (CUTOFF=300); PHENCYCLIDINE,URINE NEGATIVE ng/ml (CUTOFF=25); URINE AMPHETAMINES NEGATIVE ng/ml (CUTOFF=500); URINE BARBITURATES NEGATIVE ng/ml (CUTOFF=200); URINE BENZODIAZEPINES NEGATIVE ng/ml (CUTOFF=200)
[2018-11-14 06:32] LABS: EOS % 0.4 % (0-4.5); HEMOGLOBIN 10.9 GM/dL (10.7-15.3); LYMPH % 0.6 % (8-40); MCH 27.5 pg (25.7-33.7); MEAN PLT VOLUME 10.3 fl (7.5-11.1); MONO % 2.2 % (3.8-10.2); NEUT % 96.8 % (42.8-82.8); PLATELET COUNT 221 K/MM3 (134-434); RBC 3.96 M/mm3 (3.60-5.2); RDW 15.5 % (11.6-15.6); WHITE BLOOD COUNT 25.2 K/mm3 (4.0-10.0)
[2018-11-14 07:03] LABS: ALBUMIN 2.4 g/dl (3.4-5.0); BILIRUBIN,TOTAL 0.4 mg/dL (0.2-1); CALCIUM 8.4 mg/dL (8.5-10.1); CREATININE 4.4 mg/dL (0.55-1.3); MAGNESIUM 2.8 mg/dL (1.8-2.4); PHOSPHOROUS 5.5 mg/dL (2.5-4.9); POTASSIUM 5.3 mmol/L (3.5-5.1); TOT PROT 6.1 g/dl (6.4-8.2)
--- NOTE | 2018-11-14 07:57 | PN ---
Physical Exam: SUBJECTIVE: Patient seen and examined at bedside- patient is very confused; moaning and diaphoretic - overnight she had another possible episode of torsades overnight- she is confused , moaning in pain tremulous- ROS unobtained as she is confused though she is screaming that she wants a sandwich OBJECTIVE: Vital Signs Period Temp Pulse Resp BP Sys/Callahan Pulse Ox Last 24 Hr 97.9 F-99.4 F 67-134 18-33 76-157/40-140 95-100 GENERAL: The patient is awake, diaphoretic on venti mask EYES: PEERLA: EOMI; no scleral icterus . NECK:no JVD: no lymphadenopathy. LUNGS: diminished breath sounds B/L ; no wheezing or rales appreciated HEART: Regular rate and rhythm, S1, S2 without murmur, rub or gallop. ABDOMEN: Soft, nontender, nondistended, normoactive bowel sounds, no guarding, no rebound, no hepatosplenomegaly, no masses. EXTREMITIES: 2+ pulses, warm, well-perfused, no edema B/L ulceers purulent/ weeping/foul-smelling . NEUROLOGICAL: Cranial nerves II through XII grossly intact. Normal speech, gait not observed. PSYCH: Normal mood, normal affect. SKIN: Warm, dry, normal turgor, no rashes or lesions noted Laboratory Results - last 24 hr 11/13/18 11/13/18 11/13/18 17:24 17:48 17:48 WBC 20.2 H RBC 4.26 Hgb 11.8 Hct 36.5 MCV 85.6 MCH 27.7 MCHC 32.4 RDW 15.7 H Plt Count 287 MPV 10.2 Absolute Neuts (auto) 18.8 H Neutrophils % 92.9 H D Neutrophils % (Manual) 95.0 H Band Neutrophils % 3.0 Lymphocytes % 2.7 L D Lymphocytes % (Manual) 2.0 L D Monocytes % 3.8 Monocytes % (Manual) 0 L D Eosinophils % 0.1 D Eosinophils % (Manual) 0.0 D Basophils % 0.5 Basophils % (Manual) 0.0 Nucleated RBC % 0 Platelet Estimate Adequate PT with INR 14.60 H INR 1.23 H PTT (Actin FS) Puncture Site ABG pH ABG pCO2 at Pt Temp ABG pO2 at Pt Temp ABG HCO3 ABG O2 Sat (Measured) ABG O2 Content ABG Base Excess Kwesi Test VBG pH POC VBG pCO2 POC VBG pO2 VBG HCO3 VBG O2 Sat (Macho) VBG Base Excess Carboxyhemoglobin Methemoglobin Oxygen Flow Rate Sodium Potassium Chloride Carbon Dioxide Anion Gap BUN Creatinine Est GFR (CKD-EPI)AfAm Est GFR (CKD-EPI)NonAf POC Glucometer 409 Random Glucose Lactic Acid Calcium Phosphorus Magnesium Total Bilirubin AST ALT Alkaline Phosphatase Ammonia Creatine Kinase Creatine Kinase Index CK-MB (CK-2) Troponin I B-Natriuretic Peptide Total Protein Albumin Urine Color Urine Appearance Urine pH Ur Specific [place] Urine Protein Urine Glucose (UA) Urine Ketones Urine Blood Urine Nitrite Urine Bilirubin Urine Urobilinogen Ur Leukocyte Esterase Digoxin Salicylates Opiates Screen Methadone Screen Acetaminophen Barbiturate Screen Phencyclidine Screen Ur Amphetamines Screen MDMA (Ecstasy) Screen Benzodiazepines Screen Cocaine Screen U Marijuana (THC) Screen Alcohol, Quantitative Acetone, Qual 11/13/18 11/13/18 11/13/18 17:48 17:48 17:48 WBC RBC Hgb Hct MCV MCH MCHC RDW Plt Count MPV Absolute Neuts (auto) Neutrophils % Neutrophils % (Manual) Band Neutrophils % Lymphocytes % Lymphocytes % (Manual) Monocytes % Monocytes % (Manual) Eosinophils % Eosinophils % (Manual) Basophils % Basophils % (Manual) Nucleated RBC % Platelet Estimate PT with INR INR PTT (Actin FS) 32.3 Puncture Site ABG pH ABG pCO2 at Pt Temp ABG pO2 at Pt Temp ABG HCO3 ABG O2 Sat (Measured) ABG O2 Content ABG Base Excess Kwesi Test VBG pH POC VBG pCO2 POC VBG pO2 VBG HCO3 VBG O2 Sat (Macho) VBG Base Excess Carboxyhemoglobin Methemoglobin Oxygen Flow Rate Sodium 132 L Potassium 6.5 H* Chloride 108 H Carbon Dioxide 12 L Anion Gap 13 BUN 178.3 H* Creatinine 5.5 H Est GFR (CKD-EPI)AfAm 9.35 Est GFR (CKD-EPI)NonAf 8.07 POC Glucometer Random Glucose 435 H* Lactic Acid 1.5 Calcium 9.3 Phosphorus Magnesium Total Bilirubin 0.2 AST 4 L ALT 15 Alkaline Phosphatase 172 H Ammonia Creatine Kinase 163 Creatine Kinase Index 1.7 CK-MB (CK-2) 2.8 Troponin I < 0.02 B-Natriuretic Peptide Total Protein 8.1 Albumin 3.2 L Urine Color Urine Appearance Urine pH Ur Specific [place] Urine Protein Urine Glucose (UA) Urine Ketones Urine Blood Urine Nitrite Urine Bilirubin Urine Urobilinogen Ur Leukocyte Esterase Digoxin Salicylates < 1.7 L Opiates Screen Methadone Screen Acetaminophen < 2.0 L Barbiturate Screen Phencyclidine Screen Ur Amphetamines Screen MDMA (Ecstasy) Screen Benzodiazepines Screen Cocaine Screen U Marijuana (THC) Screen Alcohol, Quantitative < 3.0 Acetone, Qual Negative L 11/13/18 11/13/18 11/13/18 18:25 18:25 18:58 WBC RBC Hgb Hct MCV MCH MCHC RDW Plt Count MPV Absolute Neuts (auto) Neutrophils % Neutrophils % (Manual) Band Neutrophils % Lymphocytes % Lymphocytes % (Manual) Monocytes % Monocytes % (Manual) Eosinophils % Eosinophils % (Manual) Basophils % Basophils % (Manual) Nucleated RBC % Platelet Estimate PT with INR INR PTT (Actin FS) Puncture Site ABG pH ABG pCO2 at Pt Temp ABG pO2 at Pt Temp ABG HCO3 ABG O2 Sat (Measured) ABG O2 Content ABG Base Excess Kwesi Test VBG pH 7.14 L* POC VBG pCO2 32.2 L POC VBG pO2 49.7 H VBG HCO3 10.4 L VBG O2 Sat (Macho) 75.5 VBG Base Excess -17.6 L Carboxyhemoglobin Methemoglobin Oxygen Flow Rate Sodium Potassium Chloride Carbon Dioxide Anion Gap BUN Creatinine Est GFR (CKD-EPI)AfAm Est GFR (CKD-EPI)NonAf POC Glucometer 389 Random Glucose Lactic Acid Calcium Phosphorus Magnesium Total Bilirubin AST ALT Alkaline Phosphatase Ammonia 48.90 H Creatine Kinase Creatine Kinase Index CK-MB (CK-2) Troponin I B-Natriuretic Peptide Total Protein Albumin Urine Color Urine Appearance Urine pH Ur Specific [place] Urine Protein Urine Glucose (UA) Urine Ketones Urine Blood Urine Nitrite Urine Bilirubin Urine Urobilinogen Ur Leukocyte Esterase Digoxin Salicylates Opiates Screen Methadone Screen Acetaminophen Barbiturate Screen Phencyclidine Screen Ur Amphetamines Screen MDMA (Ecstasy) Screen Benzodiazepines Screen Cocaine Screen U Marijuana (THC) Screen Alcohol, Quantitative Acetone, Qual 11/13/18 11/13/18 11/13/18 19:11 19:20 20:40 WBC 15.5 H RBC 4.02 Hgb 11.1 Hct 34.5 MCV 85.9 MCH 27.6 MCHC 32.2 RDW 15.4 Plt Count 237 MPV 9.9 Absolute Neuts (auto) 14.6 H Neutrophils % 94.2 H Neutrophils % (Manual) 90.0 H Band Neutrophils % 5.0 Lymphocytes % 3.6 L D Lymphocytes % (Manual) 4.0 L D Monocytes % 1.8 L Monocytes % (Manual) 1 L D Eosinophils % 0.1 Eosinophils % (Manual) 0.0 Basophils % 0.3 Basophils % (Manual) 0.0 Nucleated RBC % 0 Platelet Estimate Adequate PT with INR INR PTT (Actin FS) Puncture Site Left radial ABG pH 7.20 L ABG pCO2 at Pt Temp 22.8 L ABG pO2 at Pt Temp 99.0 ABG HCO3 8.5 L ABG O2 Sat (Measured) 96.6 ABG O2 Content 8.6 L* ABG Base Excess -18.1 L Kwesi Test Positive VBG pH POC VBG pCO2 POC VBG pO2 VBG HCO3 VBG O2 Sat (Macho) VBG Base Excess Carboxyhemoglobin 1.5 Methemoglobin 0.8 Oxygen Flow Rate 21 Sodium Potassium Chloride Carbon Dioxide Anion Gap BUN Creatinine Est GFR (CKD-EPI)AfAm Est GFR (CKD-EPI)NonAf POC Glucometer Random Glucose Lactic Acid Calcium Phosphorus Magnesium Total Bilirubin AST ALT Alkaline Phosphatase Ammonia Creatine Kinase Creatine Kinase Index CK-MB (CK-2) Troponin I B-Natriuretic Peptide Total Protein Albumin Urine Color Urine Appearance Urine pH Ur Specific [place] Urine Protein Urine Glucose (UA) Urine Ketones Urine Blood Urine Nitrite Urine Bilirubin Urine Urobilinogen Ur Leukocyte Esterase Digoxin Salicylates Opiates Screen Methadone Screen Acetaminophen Barbiturate Screen Phencyclidine Screen Ur Amphetamines Screen MDMA (Ecstasy) Screen Benzodiazepines Screen Cocaine Screen U Marijuana (THC) Screen Alcohol, Quantitative Acetone, Qual 11/13/18 11/13/18 11/13/18 20:40 21:45 22:47 WBC RBC Hgb Hct MCV MCH MCHC RDW Plt Count MPV Absolute Neuts (auto) Neutrophils % Neutrophils % (Manual) Band Neutrophils % Lymphocytes % Lymphocytes % (Manual) Monocytes % Monocytes % (Manual) Eosinophils % Eosinophils % (Manual) Basophils % Basophils % (Manual) Nucleated RBC % Platelet Estimate PT with INR INR PTT (Actin FS) Puncture Site ABG pH ABG pCO2 at Pt Temp ABG pO2 at Pt Temp ABG HCO3 ABG O2 Sat (Measured) ABG O2 Content ABG Base Excess Kwesi Test VBG pH POC VBG pCO2 POC VBG pO2 VBG HCO3 VBG O2 Sat (Macho) VBG Base Excess Carboxyhemoglobin Methemoglobin Oxygen Flow Rate Sodium 138 Potassium 5.5 H Chloride 114 H Carbon Dioxide 14 L Anion Gap 11 BUN 167.2 H* Creatinine 4.6 H Est GFR (CKD-EPI)AfAm 11.61 Est GFR (CKD-EPI)NonAf 10.01 POC Glucometer 226 Random Glucose 316 H* Lactic Acid Calcium 8.7 Phosphorus 6.3 H Magnesium 3.4 H Total Bilirubin 0.3 AST 6 L ALT 14 Alkaline Phosphatase 155 H Ammonia Creatine Kinase Creatine Kinase Index CK-MB (CK-2) Troponin I B-Natriuretic Peptide Total Protein 7.2 Albumin 2.8 L Urine Color Yellow Urine Appearance Cloudy Urine pH 5.0 Ur Specific [place] 1.014 Urine Protein Trace Urine Glucose (UA) Negative Urine Ketones Negative Urine Blood Negative Urine Nitrite Negative Urine Bilirubin Negative Urine Urobilinogen 0.2 Ur Leukocyte Esterase Negative Digoxin Salicylates Opiates Screen Methadone Screen Acetaminophen Barbiturate Screen Phencyclidine Screen Ur Amphetamines Screen MDMA (Ecstasy) Screen Benzodiazepines Screen Cocaine Screen U Marijuana (THC) Screen Alcohol, Quantitative Acetone, Qual 11/13/18 11/13/18 11/13/18 23:00 23:00 23:00 WBC 5.1 RBC 4.40 Hgb 12.3 Hct 38.4 MCV 87.2 MCH 28.1 MCHC 32.2 RDW 15.8 H Plt Count 219 MPV 10.0 Absolute Neuts (auto) Neutrophils % Neutrophils % (Manual) Band Neutrophils % Lymphocytes % Lymphocytes % (Manual) Monocytes % Monocytes % (Manual) Eosinophils % Eosinophils % (Manual) Basophils % Basophils % (Manual) Nucleated RBC % Platelet Estimate PT with INR INR PTT (Actin FS) Puncture Site ABG pH ABG pCO2 at Pt Temp ABG pO2 at Pt Temp ABG HCO3 ABG O2 Sat (Measured) ABG O2 Content ABG Base Excess Kwesi Test VBG pH POC VBG pCO2 POC VBG pO2 VBG HCO3 VBG O2 Sat (Macho) VBG Base Excess Carboxyhemoglobin Methemoglobin Oxygen Flow Rate Sodium 138 Potassium 5.6 H Chloride 116 H Carbon Dioxide 10 L Anion Gap 12 BUN 165.2 H* Creatinine 4.3 H Est GFR (CKD-EPI)AfAm 12.59 Est GFR (CKD-EPI)NonAf 10.86 POC Glucometer Random Glucose 223 H Lactic Acid Calcium 8.9 Phosphorus Magnesium Cancelled Total Bilirubin AST ALT Alkaline Phosphatase Ammonia Creatine Kinase Creatine Kinase Index CK-MB (CK-2) Troponin I B-Natriuretic Peptide 1043.3 H Total Protein Albumin Urine Color Urine Appearance Urine pH Ur Specific [place] Urine Protein Urine Glucose (UA) Urine Ketones Urine Blood Urine Nitrite Urine Bilirubin Urine Urobilinogen Ur Leukocyte Esterase Digoxin Cancelled 1.62 Salicylates Opiates Screen Methadone Screen Acetaminophen Barbiturate Screen Phencyclidine Screen Ur Amphetamines Screen MDMA (Ecstasy) Screen Benzodiazepines Screen Cocaine Screen U Marijuana (THC) Screen Alcohol, Quantitative Acetone, Qual 11/13/18 11/13/18 11/14/18 23:00 23:00 04:40 WBC RBC Hgb Hct MCV MCH MCHC RDW Plt Count MPV Absolute Neuts (auto) Neutrophils % Neutrophils % (Manual) Band Neutrophils % Lymphocytes % Lymphocytes % (Manual) Monocytes % Monocytes % (Manual) Eosinophils % Eosinophils % (Manual) Basophils % Basophils % (Manual) Nucleated RBC % Platelet Estimate PT with INR INR PTT (Actin FS) Puncture Site ABG pH ABG pCO2 at Pt Temp ABG pO2 at Pt Temp ABG HCO3 ABG O2 Sat (Measured) ABG O2 Content ABG Base Excess Kwesi Test VBG pH POC VBG pCO2 POC VBG pO2 VBG HCO3 VBG O2 Sat (Macho) VBG Base Excess Carboxyhemoglobin Methemoglobin Oxygen Flow Rate Sodium Potassium Chloride Carbon Dioxide Anion Gap BUN Creatinine Est GFR (CKD-EPI)AfAm Est GFR (CKD-EPI)NonAf POC Glucometer Random Glucose Lactic Acid 2.5 H* Calcium Phosphorus Magnesium Total Bilirubin AST ALT Alkaline Phosphatase Ammonia Creatine Kinase Creatine Kinase Index CK-MB (CK-2) Troponin I B-Natriuretic Peptide Cancelled Total Protein Albumin Urine Color Urine Appearance Urine pH Ur Specific [place] Urine Protein Urine Glucose (UA) Urine Ketones Urine Blood Urine Nitrite Urine Bilirubin Urine Urobilinogen Ur Leukocyte Esterase Digoxin Salicylates Opiates Screen Negative Methadone Screen Negative Acetaminophen Barbiturate Screen Negative Phencyclidine Screen Negative Ur Amphetamines Screen Negative MDMA (Ecstasy) Screen Negative Benzodiazepines Screen Negative Cocaine Screen Negative U Marijuana (THC) Screen Negative Alcohol, Quantitative Acetone, Qual 11/14/18 11/14/18 11/14/18 04:53 05:15 05:15 WBC 25.2 H RBC 3.96 Hgb 10.9 Hct 34.0 MCV 86.0 MCH 27.5 MCHC 32.0 RDW 15.5 Plt Count 221 MPV 10.3 Absolute Neuts (auto) 24.4 H Neutrophils % 96.8 H Neutrophils % (Manual) Band Neutrophils % Lymphocytes % 0.6 L Lymphocytes % (Manual) Monocytes % 2.2 L Monocytes % (Manual) Eosinophils % 0.4 D Eosinophils % (Manual) Basophils % 0.0 Basophils % (Manual) Nucleated RBC % 0 Platelet Estimate PT with INR INR PTT (Actin FS) Puncture Site ABG pH ABG pCO2 at Pt Temp ABG pO2 at Pt Temp ABG HCO3 ABG O2 Sat (Measured) ABG O2 Content ABG Base Excess Kwesi Test VBG pH POC VBG pCO2 POC VBG pO2 VBG HCO3 VBG O2 Sat (Macho) VBG Base Excess Carboxyhemoglobin Methemoglobin Oxygen Flow Rate Sodium 138 Potassium 5.3 H Chloride 118 H Carbon Dioxide 11 L Anion Gap 10 BUN Creatinine 4.4 H Est GFR (CKD-EPI)AfAm 12.25 Est GFR (CKD-EPI)NonAf 10.57 POC Glucometer 235 Random Glucose 246 H Lactic Acid Calcium 8.4 L Phosphorus 5.5 H Magnesium 2.8 H Total Bilirubin 0.4 AST 25 ALT 22 Alkaline Phosphatase 175 H Ammonia Creatine Kinase Creatine Kinase Index CK-MB (CK-2) Troponin I B-Natriuretic Peptide Total Protein 6.1 L Albumin 2.4 L Urine Color Urine Appearance Urine pH Ur Specific [place] Urine Protein Urine Glucose (UA) Urine Ketones Urine Blood Urine Nitrite Urine Bilirubin Urine Urobilinogen Ur Leukocyte Esterase Digoxin Salicylates Opiates Screen Methadone Screen Acetaminophen Barbiturate Screen Phencyclidine Screen Ur Amphetamines Screen MDMA (Ecstasy) Screen Benzodiazepines Screen Cocaine Screen U Marijuana (THC) Screen Alcohol, Quantitative Acetone, Qual Active Medications Generic Name Dose Route Start Last Admin Trade Name Freq PRN Reason Stop Dose Admin Albuterol/Ipratropium 1 amp 11/13/18 22:58 Duoneb - NEB Q6H PRN SHORTNESS OF BREATH Budesonide/Formoterol Fumarate 2 puff 11/14/18 10:00 Symbicort 80/4.5mcg - IH BID LANCE Sodium Chloride 1,000 mls @ 100 mls/hr 11/13/18 23:45 06/21/19 00:15 Normal Saline - IV 100 mls/hr ASDIR LANCE Administration Insulin Aspart 1 vial 11/14/18 00:45 11/14/18 05:00 Novolog Vial Sliding Scale - SQ 2 units Q4H LANCE Administration Protocol Metoprolol Tartrate 25 mg 11/14/18 10:00 Lopressor - PO DAILY LANCE Pantoprazole Sodium 40 mg 11/14/18 10:00 Protonix Iv IVPUSH DAILY LANCE Polyethylene Glycol 17 gm 11/14/18 10:00 Miralax (For Daily Use) - PO DAILY LANCE ASSESSMENT/PLAN: 53 y/o female with PMH of HTN, DM, Afib (on eliquis), B/L chronic venous ulcers who who was brought to the ED by her brother with a few day history of altered mental status, lethargy after not having taken her diabetes medications found to be uremic #Neuro patient is having altered mental status possibly 2/2 uremia -head CT was negative -utox negative -frequent neuro checks #Cardiovascular overnight patient had 1-2 episodes of torsades de pointes that broke with magnesium -patient became hypotenisve and was not responsive to fluids despite receiving ~ 5L of fluids trialysis catheter placed and patient is currently on levophed -holding home anti-hypertensives -daily EKG's -avoid QTc prolonging agents -monitor hemodynamics; maintain MAPS >65 -cardio consulted #Endocrine patient has history of DM and has been noncompliant with medications for the past few days; on arrival BGM was 345 -currently on ISS -monitor BGMS ACHS #ID patient currently on meropenem -ID on board -blood and urine cx pending #Pulmonary patient is currently on ventimask -CXR did not show any signs of acute pathology -c/w duonebs and symbicort #Renal patient came in with BUN/CR 178/6.5 and was hyperkalemic to 6.5 -R trialysis catheter was placed -patient is getting emergent HD -repeat BMP after HD -nephro on board F/E/N 1/ NS @125 monitor electrolytes DVT PPX:SCDS GI PPX: protonix Problem List - Problems (1) ARF (acute renal failure) Code(s): N17.9 - ACUTE KIDNEY FAILURE, UNSPECIFIED (2) Encephalopathy due to metabolic factor or toxin Code(s): DEH0547 - (3) Hyperglycemia Code(s): R73.9 - HYPERGLYCEMIA, UNSPECIFIED (4) Hyperkalemia Code(s): E87.5 - HYPERKALEMIA (5) Polymorphic ventricular tachycardia Code(s): I47.2 - VENTRICULAR TACHYCARDIA Visit type - Emergency Visit Emergency Visit: Yes ED Registration Date: 11/13/18 Care time: The patient presented to the Emergency Department on the above date and was hospitalized for further evaluation of their emergent condition. - New Patient This patient is new to me today: Yes Date on this admission: 11/14/18 - Critical Care Critical Care patient: Yes Total Critical Care Time (in minutes): 35 Critical Care Statement: The care of this patient involved high complexity decision making to prevent further life threatening deterioration of the patient 's condition and/or to evaluate & treat vital organ system(s) failure or risk of failure.
[2018-11-14 08:08] LABS: BLOOD UREA NITROGEN 163.2 mg/dL (7-18)
[2018-11-14 08:27] LABS: ARTERIAL BLD GAS O2 SATURATION 98.8 % (95-98); ARTERIAL BLOOD GAS BASE EXCESS -16.9 meq/l (-2-2); ARTERIAL BLOOD GAS PCO2 21.7 mmHg (35-45); ARTERIAL BLOOD GAS PO2 132 mmHg (80-105); ARTERIAL BLOOD GAS pH 7.24 (7.35-7.45)
[2018-11-14 08:30] LABS: ALLENS TEST POSITIVE
--- NOTE | 2018-11-14 08:36 | PN ---
Progress Note, Physician - Current Medication List Current Medications: Active Medications Albuterol/Ipratropium (Duoneb -) 1 amp NEB Q6H PRN PRN Reason: SHORTNESS OF BREATH Budesonide/Formoterol Fumarate (Symbicort 80/4.5mcg -) 2 puff IH BID LANCE Sodium Chloride (Normal Saline -) 1,000 mls @ 100 mls/hr IV ASDIR LANCE Last Admin: 11/14/18 00:15 Dose: 100 mls/hr Insulin Aspart (Novolog Vial Sliding Scale -) 1 vial SQ Q4H LANCE; Protocol Last Admin: 11/14/18 05:00 Dose: 2 units Metoprolol Tartrate (Lopressor -) 25 mg PO DAILY LANCE Pantoprazole Sodium (Protonix Iv) 40 mg IVPUSH DAILY LANCE Polyethylene Glycol (Miralax (For Daily Use) -) 17 gm PO DAILY [facility] - Objective Vital Signs: Vital Signs Temperature 99.4 F 11/14/18 06:00 Pulse Rate 84 11/14/18 06:00 Respiratory Rate 30 H 11/14/18 06:00 Blood Pressure 90/55 L 11/14/18 06:00 O2 Sat by Pulse Oximetry (%) 100 11/13/18 23:00 Cardiovascular: Yes: S1, S2 Respiratory: Yes: Diminished, On Venti-Mask, Rhonchi Gastrointestinal: Yes: Normal Bowel Sounds, Soft Edema: Yes Wound/Incision: Yes: Dressing Removed, Reddened, Excoriated, Other (ulcer both le -foul smelling) Labs: CBC, BMP 11/14/18 05:15 11/14/18 05:15 INR, PTT INR 1.23 (0.83-1.09) H 11/13/18 17:48 Problem List - Problems (1) ARF (acute renal failure) Assessment/Plan: HYDRATION MONITOR RENAL FUNCTION RENAL CONSULT MONITOR CVP Code(s): N17.9 - ACUTE KIDNEY FAILURE, UNSPECIFIED (2) Cellulitis Assessment/Plan: IV ABX ID AND SURGICAL CONSULTS Code(s): L03.90 - CELLULITIS, UNSPECIFIED Qualifiers: Site of cellulitis: unspecified site Qualified Code(s): L03.90 - Cellulitis , unspecified (3) Encephalopathy due to metabolic factor or toxin Assessment/Plan: MONITOR Code(s): [id number] - (4) Morbid (severe) obesity due to excess calories Code(s): E66.01 - MORBID (SEVERE) OBESITY DUE TO EXCESS CALORIES (5) Ventricular tachyarrhythmia Assessment/Plan: MYRA BUCK TELE CARDIO ECHO Code(s): I47.2 - VENTRICULAR TACHYCARDIA (6) DM2 (diabetes mellitus, type 2) Assessment/Plan: BGM AND SS Code(s): E11.9 - TYPE 2 DIABETES MELLITUS WITHOUT COMPLICATIONS Qualifiers: Diabetes mellitus intermediate accountant insulin use: with fpc use Diabetes mellitus complication detail: with other circulatory complications (7) Severe sepsis Assessment/Plan: IV ABX CULTURES ID Code(s): A41.9 - SEPSIS, UNSPECIFIED ORGANISM; R65.20 - SEVERE SEPSIS WITHOUT SEPTIC SHOCK
[2018-11-14] MEDS ORDERED: ACETAMINOPHEN 1000 MG/100 ML VIAL (NON FORMULARY) IVPB ONE (08:48)
[2018-11-14] MEDS ORDERED: MORPHINE SULFATE 2 MG/ML VIAL IVPUSH ONE (09:03)
[2018-11-14] MEDS ORDERED: MEROPENEM 1 GM in DEXTROSE 5%-WATER 100 ML IVPB ONE (09:09)
[2018-11-14] MEDS ORDERED: MORPHINE SULFATE 2 MG/ML VIAL ONE (09:22)
[2018-11-14] MEDS ORDERED: SODIUM BICARBONATE 8.4% 50 MEQ/50 ML DISP.SYRIN IVPUSH ONE (09:23)
[2018-11-14] MEDS ORDERED: SODIUM CHLORIDE 0.45% 1,000 ML with SODIUM BICARBONATE 8.4% - 75 MEQ IV SCH (09:30)
[2018-11-14] MEDS ORDERED: SODIUM BICARBONATE 8.4% 50 MEQ/50 ML VIAL ONE ×2 (09:33→12:51)
[2018-11-14] MEDS ORDERED: MEROPENEM 1 GM VIAL (RESTRICTED TO ID) IVPB ONE ×2 (09:33→21:04)
[2018-11-14] MEDS ORDERED: DEXTROSE 5%-WATER 100 ML IVPB ONE ×2 (09:33→21:04)
[2018-11-14] MEDS: PANTOPRAZOLE SODIUM 40 MG VIAL IVPUSH SCH (09:46)
[2018-11-14] MEDS: POLYETHYLENE GLYCOL 3350 119 GM BTL PO SCH (10:00)
[2018-11-14] MEDS: BUDESONIDE/FORMETEROL FUMARATE 80/4.5 mcg INHALER IH SCH ×2 (10:00→22:26)
[2018-11-14 10:24] LABS: ANISOCYTOSIS 0; MACROCYTOSIS 0; PLATELET ESTIMATE NORMAL
--- NOTE | 2018-11-14 11:19 | PN ---
Teaching Attending Note Name of Resident: Nehal Valerio ATTENDING PHYSICIAN STATEMENT I saw and evaluated the patient. I reviewed the resident's note and discussed the case with the resident. I agree with the resident's findings and plan as documented. SUBJECTIVE: Patient seen and examined in the ICU. Lethargic but arousable. Not able to provide any history but she is protecting her airway and saturating well on VM O2. Recurrent hypotension despite volume resuscitation. Intake & Output 11/11/18 11/12/18 11/13/18 11/14/18 23:59 23:59 23:59 23:59 Intake Total 700 Output Total 450 250 Balance -450 450 Weight 324 lb 15.734 oz 313 lb 8 oz Last Vital Signs Temp Pulse Resp BP Pulse Ox 101.5 F H 84 23 H 102/53 L 100 11/14/18 08:50 11/14/18 08:50 11/14/18 08:50 11/14/18 08:50 11/14/18 09:00 Active Medications Albuterol/Ipratropium (Duoneb -) 1 amp NEB Q6H PRN PRN Reason: SHORTNESS OF BREATH Budesonide/Formoterol Fumarate (Symbicort 80/4.5mcg -) 2 puff IH BID [facility] Last Admin: 11/14/18 10:00 Dose: Not Given Sodium Chloride (Normal Saline -) 1,000 mls @ 100 mls/hr IV ASDIR LANCE Last Admin: 11/14/18 00:15 Dose: 100 mls/hr Sodium Bicarbonate 75 meq/ (Sodium Chloride) 1,075 mls @ 125 mls/hr IV ASDIR [facility] Insulin Aspart (Novolog Vial Sliding Scale -) 1 vial SQ Q4H [facility]; Protocol Last Admin: 11/14/18 09:52 Dose: 4 units Metoprolol Tartrate (Lopressor -) 25 mg PO DAILY [facility] Pantoprazole Sodium (Protonix Iv) 40 mg IVPUSH DAILY [facility] Last Admin: 11/14/18 09:46 Dose: 40 mg Polyethylene Glycol (Miralax (For Daily Use) -) 17 gm PO DAILY [facility] Last Admin: 11/14/18 10:00 Dose: Not Given GENERAL: Lethargic but arousable. Mildly tachypneic at rest. HEENT: NC/AT, ISAIAH, sclera anicteric, dry mucosa noted NECK: Excessive soft tissues, no overt JVD however difficult to assess LUNGS: Distant breath sounds, diminished bibasillarly. No wheezes. No accessory muscle use. 2LNC SpO2 95% HEART: Distant cardiac sounds, Irregularly irregular rhythm with normal rate, normal S1 and S2 without murmur ABDOMEN: Soft, obese, nondistended, mild tenderness in RLQ, normoactive BS, no guarding. MUSCULOSKELETAL: No CVA tenderness. EXTREMITIES: 2+ DP pulses, hot, well-perfused. Large erythematous stasis wounds with purulent discharge (R>L) with iodoform and gauze bandage, malodorous PSYCHIATRIC: Cooperative. Good eye contact. Appropriate mood and affect. SKIN: Warm, dry, no rashes, lesions as EXT exam Laboratory Results 11/13/18 11/13/18 11/13/18 17:24 17:48 17:48 WBC 20.2 H RBC 4.26 Hgb 11.8 Hct 36.5 MCV 85.6 MCH 27.7 MCHC 32.4 RDW 15.7 H Plt Count 287 MPV 10.2 Absolute Neuts (auto) 18.8 H Neutrophils % 92.9 H D Lymphocytes % 2.7 L D Monocytes % 3.8 Eosinophils % 0.1 D Basophils % 0.5 Nucleated RBC % 0 PT with INR 14.60 H INR 1.23 H PTT (Actin FS) Puncture Site ABG pH ABG pCO2 at Pt Temp ABG pO2 at Pt Temp ABG HCO3 ABG O2 Sat (Measured) ABG O2 Content ABG Base Excess Kwesi Test VBG pH POC VBG pCO2 POC VBG pO2 VBG HCO3 VBG O2 Sat (Macho) VBG Base Excess Oxygen Flow Rate Sodium Potassium Chloride Carbon Dioxide Anion Gap BUN Creatinine Est GFR (CKD-EPI)AfAm Est GFR (CKD-EPI)NonAf POC Glucometer 409 Random Glucose Lactic Acid Calcium Total Bilirubin AST ALT Alkaline Phosphatase Ammonia Creatine Kinase Creatine Kinase Index CK-MB (CK-2) Troponin I Total Protein Albumin Salicylates Acetaminophen Alcohol, Quantitative Acetone, Qual 11/13/18 11/13/18 11/13/18 17:48 17:48 17:48 WBC RBC Hgb Hct MCV MCH MCHC RDW Plt Count MPV Absolute Neuts (auto) Neutrophils % Lymphocytes % Monocytes % Eosinophils % Basophils % Nucleated RBC % PT with INR INR PTT (Actin FS) 32.3 Puncture Site ABG pH ABG pCO2 at Pt Temp ABG pO2 at Pt Temp ABG HCO3 ABG O2 Sat (Measured) ABG O2 Content ABG Base Excess Kwesi Test VBG pH POC VBG pCO2 POC VBG pO2 VBG HCO3 VBG O2 Sat (Macho) VBG Base Excess Oxygen Flow Rate Sodium 132 L Potassium 6.5 H* Chloride 108 H Carbon Dioxide 12 L Anion Gap 13 BUN 178.3 H* Creatinine 5.5 H Est GFR (CKD-EPI)AfAm 9.35 Est GFR (CKD-EPI)NonAf 8.07 POC Glucometer Random Glucose 435 H* Lactic Acid 1.5 Calcium 9.3 Total Bilirubin 0.2 AST 4 L ALT 15 Alkaline Phosphatase 172 H Ammonia Creatine Kinase 163 Creatine Kinase Index 1.7 CK-MB (CK-2) 2.8 Troponin I < 0.02 Total Protein 8.1 Albumin 3.2 L Salicylates < 1.7 L Acetaminophen < 2.0 L Alcohol, Quantitative < 3.0 Acetone, Qual Negative L 11/13/18 11/13/18 11/13/18 18:25 18:25 18:58 WBC RBC Hgb Hct MCV MCH MCHC RDW Plt Count MPV Absolute Neuts (auto) Neutrophils % Lymphocytes % Monocytes % Eosinophils % Basophils % Nucleated RBC % PT with INR INR PTT (Actin FS) Puncture Site ABG pH ABG pCO2 at Pt Temp ABG pO2 at Pt Temp ABG HCO3 ABG O2 Sat (Measured) ABG O2 Content ABG Base Excess Kwesi Test VBG pH 7.14 L* POC VBG pCO2 32.2 L POC VBG pO2 49.7 H VBG HCO3 10.4 L VBG O2 Sat (Macho) 75.5 VBG Base Excess -17.6 L Oxygen Flow Rate Sodium Potassium Chloride Carbon Dioxide Anion Gap BUN Creatinine Est GFR (CKD-EPI)AfAm Est GFR (CKD-EPI)NonAf POC Glucometer 389 Random Glucose Lactic Acid Calcium Total Bilirubin AST ALT Alkaline Phosphatase Ammonia 48.90 H Creatine Kinase Creatine Kinase Index CK-MB (CK-2) Troponin I Total Protein Albumin Salicylates Acetaminophen Alcohol, Quantitative Acetone, Qual 11/13/18 19:11 WBC RBC Hgb Hct MCV MCH MCHC RDW Plt Count MPV Absolute Neuts (auto) Neutrophils % Lymphocytes % Monocytes % Eosinophils % Basophils % Nucleated RBC % PT with INR INR PTT (Actin FS) Puncture Site Left radial ABG pH 7.20 L ABG pCO2 at Pt Temp 22.8 L ABG pO2 at Pt Temp 99.0 ABG HCO3 8.5 L ABG O2 Sat (Measured) 96.6 ABG O2 Content 8.6 L* ABG Base Excess -18.1 L Kwesi Test Positive VBG pH POC VBG pCO2 POC VBG pO2 VBG HCO3 VBG O2 Sat (Macho) VBG Base Excess Oxygen Flow Rate 21 Sodium Potassium Chloride Carbon Dioxide Anion Gap BUN Creatinine Est GFR (CKD-EPI)AfAm Est GFR (CKD-EPI)NonAf POC Glucometer Random Glucose Lactic Acid Calcium Total Bilirubin AST ALT Alkaline Phosphatase Ammonia Creatine Kinase Creatine Kinase Index CK-MB (CK-2) Troponin I Total Protein Albumin Salicylates Acetaminophen Alcohol, Quantitative Acetone, Qual ASSESSMENT/PLAN: Acute toxic metabolic encephalopathy Polymorphic Ventricular Tachycardia Sepsis 2/2 to cellulitis; r/o bacteremia Hyperglycemia Acute kidney failure Uremia Metabolic acidosis Hyperkalemia T2DM Morbid obesity HTN Access inserted via Right IJ for pressors and HD Strict I & O Measure CVP IVF for CVP 8 to 12 ID evaluation for ABX coverage Sampson-culture Cardiology evaluation Renal evaluation called: will initiate acute HD Follow CXR Follow AG Can use HFOT for increased WOB Glycemic control Requires ICU monitoring Dr Andre Critical care time spent in reviewing chart, evaluating patient and formulating plan - 36 minutes.
--- NOTE | 2018-11-14 11:40 | ECHO ---
Name: KANDIS SANA Exam:Adult Echocardiogram Study Date: 11/14/2018 10:36 AM Age: 53 yrs Reason For Study: lvef Height: 62 in Weight: 313 lb BSA: 2.3 m2 MMode/2D Measurements & Calculations IVSd: 1.0 cm Ao root diam: 2.5 cm LVIDd: 4.9 cm LA dimension: 3.7 cm LVIDs: 3.6 cm LVPWd: 0.81 cm EDV(Teich): 113.6 ml LVOT diam: 2.0 cm ESV(Teich): 54.6 ml LAV (MOD-bp): 73.0 ml Doppler Measurements & Calculations MV E max johnny: 73.2 cm/sec Ao V2 max: 281.0 cm/sec MV A max johnny: 34.0 cm/sec Ao max P.6 mmHg MV E/A: 2.2 Ao V2 mean: 195.2 cm/sec MV dec time: 0.21 sec Ao mean P.6 mmHg Ao V2 VTI: 47.4 cm EFRAIN(I,D): 1.9 cm2 EFRAIN(V,D): 1.6 cm2 LV V1 max P.2 mmHg SV(LVOT): 90.6 ml LV V1 mean P.6 mmHg LV V1 max: 143.1 cm/sec LV V1 mean: 99.7 cm/sec LV V1 VTI: 28.8 cm TR max johnny: 314.0 cm/sec PA V2 max: 183.9 cm/sec TR max P.6 mmHg PA max P.5 mmHg Med Peak E' Johnny: 11.4 cm/sec Med E/e': 6.4 Lat Peak E' Johnny: 13.3 cm/sec Lat E/e': 5.5 Procedure The study was technically difficult with many images being suboptimal in quality. Left Ventricle Ejection Fraction = 55-60%. Right Ventricle The right ventricle is borderline dilated. The right ventricular systolic function is grossly normal. Atria The left atrium is moderately dilated. Mitral Valve The mitral valve is normal in structure and function. There is no mitral valve stenosis. There is mil d mitral regurgitation. Tricuspid Valve The tricuspid valve is normal in structure and function. There is mild tricuspid regurgitation. Right ventricular systolic pressure is elevated at 40-50mmHg. Aortic Valve The aortic valve opens well. No hemodynamically significant valvular aortic stenosis. No aortic regur gitation is present. Pulmonic Valve The pulmonic valve is not well seen, but is grossly normal. There is no pulmonic valvular stenosis. T here is no pulmonic valvular regurgitation. Great Vessels The aortic root is normal size. Pericardium/Pleura There is no pericardial effusion. Interpretation Summary The study was technically difficult with many images being suboptimal in quality. Ejection Fraction = 55-60%. The left atrium is moderately dilated. There is mild mitral regurgitation. There is mild tricuspid regurgitation. Right ventricular systolic pressure is elevated at 40-50mmHg. There is no pericardial effusion. MD Herrera *Natasha 11/14/2018 11:40 AM
--- NOTE | 2018-11-14 11:57 | PROC ---
Central Line Insertion Indication: CVP Monitoring, Sepsis, Vasopressor Risks and Benefits Explained: Yes Consent on Chart: Yes Central Line: Dialysis Cath, Tri Lumen Anesthesia: 1% Lidocaine Sterile Technique: Yes Ultrasound Guided Assistance: Yes Position: Right Internal Jugular Post Insertion: Yes: Bilateral Breath Sounds, Bilateral Chest Expansion, Chest X-Ray Ordered Sterile Dressing Applied: Yes
--- NOTE | 2018-11-14 12:30 | CON.ID ---
Consult Consult Specialty:: infectious diseases Referred by:: alvaro chris Reason for Consultation:: sepsis - History of Present Illness Chief Complaint: sepsis,b/l cellulitis of the leg,lethargy leukocytosis History of Present Illness: 53 yrs old F poor historian , multiple Co-morbidities, non compliant, last F/U PCP in May 2018t, B/L LE chronic Venous stasis ulceration, Chronic Afib on AC, HTN, poorly controlled T2DM, Dyslipedemia, Bipolar , previously admitted in 2018 with NOVA received HD and discharged after prolonged Hospitalization last hospitalization in 06/2018 at [facility], 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, today present to Ed with altered metal status and letahrgy as per patient didnt take insulin for past few days today picjked up the Insulin and Inhected 20 units of Novalog felt unwell with confusion, lethargy and SOB so 911 was called came to Ed for evaluation, on arrival to Ed somnolent, lethargic , hypotensive recived IV Hydration, lab showed NOVA with BUN 178 Creat 6.5 and K 6.5 with hyperglycemia, elevated TWBC , on monitor developed Polymorphic Vtach lasted for 30 seconds received IV Mag 2gm, calcium Gluconte , Insulin and Bicarb , conveted to Afib at the time of examination, patient is in Afib , stable BP and O2 saturation denies any SOB, chest pain, palpation, vomiting ord diarrhea, c./o pain at Rt LQ but abd is soft , patient is somnolent but answering appropitely no witnesed seizure or fall at home. patient in icu now still lethargic but slightly beter than yesterday - History Source History Provided By: Medical Record Limitations to Obtaining History: Clinical Condition - Past Medical History Cardio/Vascular: Yes: AFIB, HTN Pulmonary: Yes: Asthma Gastrointestinal: Yes: Other (gallstones) Hepatobiliary: Yes: Cholelithiasis (passed without surgery), Other (fatty liver) Renal/: Yes: Renal Inusuff ...: No Infectious Disease: Yes: Other (LE cellulitis) Psych: Yes: Bipolar Endocrine: Yes: Diabetes Mellitus Dermatology: Yes: Cellulitis (b/l LE with ulcerations) Additional Medical History: obesity - Alcohol/Substance Use Hx Alcohol Use: No History of Substance Use: reports: Prescription (narcotics) - Smoking History Smoking history: Former smoker Have you smoked in the past 12 months: No Aproximately how many cigarettes per day: 0 If you are a former smoker, when did you quit?: quit age 13 - Social History Usual Living Arrangement: Alone ADL: Independent 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 History of Recent Travel: No Home Medications - Allergies Allergies/Adverse Reactions: Allergies Allergy/AdvReac Type Severity Reaction Status Date / Time nut - unspecified Allergy Verified 11/13/18 21:32 Penicillins Allergy Verified 11/13/18 21:32 walnut Allergy Verified 11/13/18 21:32 - Home Medications Home Medications: Ambulatory Orders RX: Budesonide/Formeterol Fumarate [SYMBICORT 80/4.5mcg -] 2 puff IH BID inhaler 02/20/17 RX: Insulin Sliding Scale [Novolog Vial Sliding Scale -] 1 vial SQ ACHS units 02/20/17 RX: Apixaban [Eliquis -] 5 mg PO BID tablet 07/04/17 RX: Pantoprazole Sodium [Protonix -] 40 mg PO DAILY tablet.ec 07/04/17 RX: Enalapril Maleate 2.5 mg PO DAILY 07/15/18 RX: Furosemide 40 mg PO ASDIR 07/15/18 RX: Gabapentin 300 mg PO DAILY 07/15/18 RX: Potassium Chloride 10 meq PO DAILY 07/15/18 Insulin Glargine,Hum.rec.anlog [Toujeo Max Solostar] 300 unit SQ BID #15 insuln.pen 07/22/18 RX: Digoxin [Lanoxin -] 0.125 mg PO DAILY #30 tablet 07/22/18 RX: Metoprolol Tartrate [Lopressor -] 25 mg PO DAILY #30 tablet 07/22/18 RX: Polyethylene Glycol 3350 [Miralax 119 gm Btl -] 17 gm PO DAILY bottle 07/22 RX: hydrOXYzine HCL [Atarax -] 25 mg PO Q6H PRN #30 tablet 07/22/18 RX: traMADol HCL [Ultram -] 50 mg PO Q6H PRN tablet MDD 4 07/22/18 Family Disease History - Family Disease History Family Disease History: Other: Father ( age 50 CVA), Mother ( 82 ), Brother (stomach cancer), Sister (breast cancer) Review of Systems Unable to obtain ROS, reason: unable to obtain Physical Exam Vital Signs: Vital Signs Temperature 100.5 F H 11/14/18 12:00 Pulse Rate 78 11/14/18 12:00 Respiratory Rate 24 H 11/14/18 12:00 Blood Pressure 107/51 L 11/14/18 12:00 O2 Sat by Pulse Oximetry (%) 100 11/14/18 09:00 Constitutional: Yes: Well Nourished, Obese, Other Eyes: Yes: Conjunctiva Clear, EOM Intact HENT: Yes: Atraumatic, Normocephalic Neck: Yes: Supple, Trachea Midline Cardiovascular: Yes: Regular Rate and Rhythm Respiratory: Yes: Regular, CTA Bilaterally Gastrointestinal: Yes: Normal Bowel Sounds, Soft Musculoskeletal: Yes: WNL Extremities: Yes: Other Wound/Incision: Yes: Dressing Removed, Other Neurological: Yes: Lethargy Psychiatric: Yes: Other Labs: CBC, BMP 11/14/18 05:15 11/14/18 05:15 Imaging - Results Chest X-ray: Report Reviewed, Image Reviewed Assessment/Plan Problem List - Problems (1) ARF (acute renal failure) Code(s): N17.9 - ACUTE KIDNEY FAILURE, UNSPECIFIED (2) Cellulitis Code(s): L03.90 - CELLULITIS, UNSPECIFIED Qualifiers: Site of cellulitis: unspecified site Qualified Code(s): L03.90 - Cellulitis , unspecified (3) Encephalopathy due to metabolic factor or toxin Code(s): [id number] - (4) Hyperglycemia Code(s): R73.9 - HYPERGLYCEMIA, UNSPECIFIED (5) Metabolic acidosis Code(s): E87.2 - ACIDOSIS (6) Morbid (severe) obesity due to excess calories Code(s): E66.01 - MORBID (SEVERE) OBESITY DUE TO EXCESS CALORIES (7) Polymorphic ventricular tachycardia Code(s): I47.2 - VENTRICULAR TACHYCARDIA (8) Sepsis Code(s): A41.9 - SEPSIS, UNSPECIFIED ORGANISM Qualifiers: Sepsis type: sepsis due to unspecified organism Qualified Code(s): A41.9 - Sepsis, unspecified organism (9) Afib Code(s): I48.91 - UNSPECIFIED ATRIAL FIBRILLATION Qualifiers: Atrial fibrillation type: paroxysmal Qualified Code(s): I48.0 - Paroxysmal atrial fibrillation (10) DM2 (diabetes mellitus, type 2) Code(s): E11.9 - TYPE 2 DIABETES MELLITUS WITHOUT COMPLICATIONS Qualifiers: Diabetes mellitus poker in insulin use: with alf use Diabetes mellitus complication detail: with other circulatory complications (11) Fever Code(s): R50.9 - FEVER, UNSPECIFIED (12) HTN (hypertension) Code(s): I10 - ESSENTIAL (PRIMARY) HYPERTENSION (13) Ulcers of both lower extremities Code(s): L97.919 - NON-PRS CHRONIC ULC UNSP PRT OF R LOW LEG W UNSP SEVERITY; L97.929 - NON-PRS CHRONIC ULC UNSP PRT OF L LOW LEG W UNSP SEVERITY Qualifiers: Non-pressure ulcer stage: unspecified non-pressure ulcer stage Qualified Code(s): L97.919 - Non-pressure chronic ulcer of unspecified part of right lower leg with unspecified severity; L97.929 - Non-pressure chronic ulcer of unspecified part of left lower leg with unspecified severity; L97.929 - Non- pressure chronic ulcer of unspecified part of left lower leg with unspecified severity; L97.929 - Non-pressure chronic ulcer of unspecified part of left lower leg with unspecified severity; L97.929 - Non-pressure chronic ulcer of unspecified part of left lower leg with unspecified severity (14) Venous stasis Code(s): I87.8 - OTHER SPECIFIED DISORDERS OF VEINS Assessment/Plan Severe Sepsis - improving B/L LE cellulitis/infected ulcers s/p Acute respiratory failure AFIB DM morbid obesity Renal insufficiency NOVA Fever patients sepsis probably coming from her legs patient is not doign well continue icu care continue current mgmt will continue broad spectrum abx wound care rest as per the team cc 40 min
--- NOTE | 2018-11-14 12:44 | CONSULT ---
Consult Consult Specialty:: Nephrology Reason for Consultation:: NOVA - History of Present Illness Chief Complaint: hypotension and altered mental status History of Present Illness: Pt is a 53 year old female with pmhx of nova requiring HD, DM, active cellulitis , a-fib, htn, asthma, and bipolar who presents to the ER with hypotension and altered mental status. She had not taken her insulin for several days before presenting to the ER. she did however pickup her insulin and take 20 units a few hours before coming to the ER. She was found to be hypotensive and in acute renal failure. She was hypoglycemic as well. Pt has been increasingly drowsy over the last few days. She is awake and able to give me some history. Her renal function had recovered after her last episode of NOVA. She was also found to have sepsis. Pt did show a response to initial fluids last night with am improvement in labs. - History Source History Provided By: Patient, Medical Record - Past Medical History Cardio/Vascular: Yes: AFIB, HTN Pulmonary: Yes: Asthma Gastrointestinal: Yes: Other (gallstones) Hepatobiliary: Yes: Cholelithiasis (passed without surgery), Other (fatty liver) Renal/: Yes: Renal Inusuff ...: No Infectious Disease: Yes: Other (LE cellulitis) Psych: Yes: Bipolar Endocrine: Yes: Diabetes Mellitus Dermatology: Yes: Cellulitis (b/l LE with ulcerations) Additional Medical History: obesity - Alcohol/Substance Use Hx Alcohol Use: No History of Substance Use: reports: Prescription (narcotics) - Smoking History Smoking history: Former smoker Have you smoked in the past 12 months: No Aproximately how many cigarettes per day: 0 If you are a former smoker, when did you quit?: quit age 13 - Social History Usual Living Arrangement: Alone ADL: Independent 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 History of Recent Travel: No Home Medications - Allergies Allergies/Adverse Reactions: Allergies Allergy/AdvReac Type Severity Reaction Status Date / Time nut - unspecified Allergy Verified 11/13/18 21:32 Penicillins Allergy Verified 11/13/18 21:32 walnut Allergy Verified 11/13/18 21:32 - Home Medications Home Medications: Ambulatory Orders Budesonide/Formeterol Fumarate [SYMBICORT 80/4.5mcg -] 2 puff IH BID inhaler Insulin Sliding Scale [Novolog Vial Sliding Scale -] 1 vial SQ ACHS units 02/20 Apixaban [Eliquis -] 5 mg PO BID tablet 07/04/17 Pantoprazole Sodium [Protonix -] 40 mg PO DAILY tablet.ec 07/04/17 Enalapril Maleate 2.5 mg PO DAILY 07/15/18 Furosemide 40 mg PO ASDIR 07/15/18 Gabapentin 300 mg PO DAILY 07/15/18 Potassium Chloride 10 meq PO DAILY 07/15/18 Digoxin [Lanoxin -] 0.125 mg PO DAILY #30 tablet 07/22/18 Insulin Glargine,Hum.rec.anlog [Toujeo Max Solostar] 300 unit SQ BID #15 insuln.pen 07/22/18 Metoprolol Tartrate [Lopressor -] 25 mg PO DAILY #30 tablet 07/22/18 Polyethylene Glycol 3350 [Miralax 119 gm Btl -] 17 gm PO DAILY bottle 07/22/18 hydrOXYzine HCL [Atarax -] 25 mg PO Q6H PRN #30 tablet 07/22/18 traMADol HCL [Ultram -] 50 mg PO Q6H PRN tablet MDD 4 07/22/18 Family Disease History - Family Disease History Family Disease History: Other: Father ( age 50 CVA), Mother ( 82 ), Brother (stomach cancer), Sister (breast cancer) Review of Systems - Review of Systems Constitutional: reports: Chills, Lethargy, Loss of Appetite, Malaise Eyes: reports: No Symptoms HENT: reports: No Symptoms Neck: reports: No Symptoms Cardiovascular: reports: No Symptoms Respiratory: reports: SOB on Exertion Gastrointestinal: reports: No Symptoms Genitourinary: reports: No Symptoms Musculoskeletal: reports: Other (lower ext ulcers) Integumentary: reports: Erythema Endocrine: reports: No Symptoms Psychiatric: reports: No Symptoms Physical Exam Vital Signs: Vital Signs Temperature 100.5 F H 11/14/18 12:00 Pulse Rate 78 11/14/18 12:00 Respiratory Rate 24 H 11/14/18 12:00 Blood Pressure 107/51 L 11/14/18 12:00 O2 Sat by Pulse Oximetry (%) 100 11/14/18 09:00 Constitutional: Yes: Mild Distress Eyes: Yes: Conjunctiva Clear Cardiovascular: Yes: S1, S2 Respiratory: Yes: CTA Bilaterally Gastrointestinal: Yes: Soft Renal/: Yes: Johnson Present Musculoskeletal: Yes: Muscle Weakness Edema: Yes Integumentary: Yes: Erythema Wound/Incision: Yes: Dressing Dry and Intact Neurological: Yes: Oriented, Other (drowsy) Labs: CBC, BMP 11/14/18 05:15 11/14/18 05:15 Laboratory Tests 11/13/18 11/13/18 11/13/18 17:48 17:48 20:40 WBC 20.2 H 15.5 H Potassium 6.5 H* Carbon Dioxide BUN Creatinine 11/13/18 11/13/18 11/13/18 20:40 23:00 23:00 WBC 5.1 Potassium 5.5 H 5.6 H Carbon Dioxide BUN Creatinine 11/14/18 11/14/18 11/14/18 05:15 05:15 12:56 WBC 25.2 H Potassium 5.3 H 5.3 H Carbon Dioxide 11 L 11 L BUN 163.2 H* Creatinine 4.4 H Imaging - Results Chest X-ray: Report Reviewed Problem List - Problems (1) ARF (acute renal failure) Code(s): N17.9 - ACUTE KIDNEY FAILURE, UNSPECIFIED (2) Cellulitis Code(s): L03.90 - CELLULITIS, UNSPECIFIED Qualifiers: Site of cellulitis: unspecified site Qualified Code(s): L03.90 - Cellulitis , unspecified (3) Encephalopathy due to metabolic factor or toxin Code(s): [id number] - (4) Hyperkalemia Code(s): E87.5 - HYPERKALEMIA (5) Metabolic acidosis Code(s): E87.2 - ACIDOSIS Assessment/Plan Current Medications Generic Name Dose Route Start Last Admin Trade Name Freq PRN Reason Stop Dose Admin Albuterol/Ipratropium 1 amp 11/13/18 22:58 Duoneb - NEB Q6H PRN SHORTNESS OF BREATH Budesonide/Formoterol Fumarate 2 puff 11/14/18 10:00 11/14/18 10:00 Symbicort 80/4.5mcg - IH Not Given BID LANCE Sodium Chloride 1,000 mls @ 100 mls/hr 11/13/18 23:45 11/14/18 00:15 Normal Saline - IV 100 mls/hr ASDIR LANCE Administration Sodium Bicarbonate 75 meq/ 1,075 mls @ 125 mls/hr 11/14/18 09:30 Sodium Chloride IV ASDIR LANCE Meropenem 1 gm/ Dextrose 100 mls @ 0 mls/hr 11/14/18 12:45 IVPB Q12H LANCE As Directed Insulin Aspart 1 vial 11/14/18 00:45 11/14/18 09:52 Novolog Vial Sliding Scale - SQ 4 units Q4H LANCE Administration Protocol Metoprolol Tartrate 25 mg 11/14/18 10:00 Lopressor - PO DAILY LANCE Pantoprazole Sodium 40 mg 11/14/18 10:00 11/14/18 09:46 Protonix Iv IVPUSH 40 mg DAILY LANCE Administration Polyethylene Glycol 17 gm 11/14/18 10:00 11/14/18 10:00 Miralax (For Daily Use) - PO Not Given DAILY LANCE Impression 1. NOVA 2. hyperkalemia 3. obesity 4. DM 5. a-fib 6. HTN 7. chronic lower extremity ulcers 8. gastritis 9. sepsis 10. hyperglycemia 11. metabolic acidosis Plan - will arrange for HD today - repeat potassium still elevated and pt remains acidotic - scooby placed by ICU - repeat labs post HD - evaluate again for HD in am - cont with fluids - cont abx - follow cultures - monitor in ICU - discussed with ICU - pt agrees with HD, she has had it before Dr Epstein
[2018-11-14] MEDS: METOPROLOL TARTRATE 25 MG TABLET (FP) PO SCH (13:01)
[2018-11-14] MEDS ORDERED: NOREPINEPHRINE BITARTRATE 4 MG/4 ML ML IV ONE (13:40)
--- NOTE | 2018-11-14 13:40 | EKG ---
Test Reason : Blood Pressure : / mmHG Vent. Rate : 095 BPM Atrial Rate : 083 BPM P-R Int : 000 ms QRS Dur : 076 ms QT Int : 276 ms P-R-T Axes : 000 031 255 degrees QTc Int : 346 ms ATRIAL FIBRILLATION LOW VOLTAGE QRS ABNORMAL ECG Confirmed by GIFTY SNOWDEN MD ([id number]) on 11/14/2018 1:40:12 PM Referred By: Confirmed By:GIFTY SNOWDEN MD
[2018-11-14] MEDS: NOREPINEPHRINE BITARTRATE 8,000 MCG in DEXTROSE 5%-WATER - 492 ML IV SCH (13:50)
[2018-11-14 13:59] LABS: ALBUMIN 2.1 g/dl (3.4-5.0); BILIRUBIN,TOTAL 0.3 mg/dL (0.2-1); CALCIUM 7.6 mg/dL (8.5-10.1); CREATININE 4.1 mg/dL (0.55-1.3); POTASSIUM 5.3 mmol/L (3.5-5.1); TOT PROT 5.7 g/dl (6.4-8.2)
[2018-11-14] MEDS ORDERED: SODIUM CHLORIDE 250 ML IV PRN (14:00)
--- NOTE | 2018-11-14 14:16 | CON.CARD ---
Consult Consult Specialty:: cardiology Referred by:: Alissa Reason for Consultation:: Ventricular arrhythmias - History of Present Illness Chief Complaint: Respiratory distress History of Present Illness: The patient is a 53-year-old morbidly obese female, we've a history of diabetes , hypertension, hyperlipidemia, chronic atrial fibrillation on Eliquis, chronic venous stasis and leg ulcers, appendicitis 07/15, admitted 11/13/2018 with mental status changes, confusion, respiratory distress and septic. The patient developed torsade de pointes which broke with magnesium. She is currently intubated on pressors in atrial fibrillation. Ventricular rates are reasonably well controlled. Apparently the patient was not taking her insulin as prescribed. Shows hyperosmolar on admission. Yesterday's echocardiogram was a technically difficult study that showed an ejection fraction to be around 55% with left atrial enlargement, moderately elevated right ventricular systolic pressure 4050 mmHg. - History Source History Provided By: Medical Record Limitations to Obtaining History: Intubated - Past Medical History Cardio/Vascular: Yes: AFIB, CHF, HTN Pulmonary: Yes: Asthma Gastrointestinal: Yes: Other (gallstones) Hepatobiliary: Yes: Cholelithiasis (passed without surgery), Other (fatty liver) Renal/: Yes: Renal Inusuff ...: No Infectious Disease: Yes: Other (LE cellulitis) Psych: Yes: Bipolar Endocrine: Yes: Diabetes Mellitus Dermatology: Yes: Cellulitis (b/l LE with ulcerations) Additional Medical History: obesity - Alcohol/Substance Use Hx Alcohol Use: No History of Substance Use: reports: Prescription (narcotics) - Smoking History Smoking history: Former smoker Have you smoked in the past 12 months: No Aproximately how many cigarettes per day: 0 If you are a former smoker, when did you quit?: quit age 13 - Social History Usual Living Arrangement: Alone ADL: Independent 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 History of Recent Travel: No Home Medications - Allergies Allergies/Adverse Reactions: Allergies Allergy/AdvReac Type Severity Reaction Status Date / Time nut - unspecified Allergy Verified 11/13/18 21:32 Penicillins Allergy Verified 11/13/18 21:32 walnut Allergy Verified 11/13/18 21:32 - Home Medications Home Medications: Ambulatory Orders Budesonide/Formeterol Fumarate [SYMBICORT 80/4.5mcg -] 2 puff IH BID inhaler Insulin Sliding Scale [Novolog Vial Sliding Scale -] 1 vial SQ ACHS units 02/20 Apixaban [Eliquis -] 5 mg PO BID tablet 07/04/17 Pantoprazole Sodium [Protonix -] 40 mg PO DAILY tablet.ec 07/04/17 Enalapril Maleate 2.5 mg PO DAILY 07/15/18 Furosemide 40 mg PO ASDIR 07/15/18 Gabapentin 300 mg PO DAILY 07/15/18 Potassium Chloride 10 meq PO DAILY 07/15/18 Digoxin [Lanoxin -] 0.125 mg PO DAILY #30 tablet 07/22/18 Insulin Glargine,Hum.rec.anlog [Toujeo Max Solostar] 300 unit SQ BID #15 insuln.pen 07/22/18 Metoprolol Tartrate [Lopressor -] 25 mg PO DAILY #30 tablet 07/22/18 Polyethylene Glycol 3350 [Miralax 119 gm Btl -] 17 gm PO DAILY bottle 07/22/18 hydrOXYzine HCL [Atarax -] 25 mg PO Q6H PRN #30 tablet 07/22/18 traMADol HCL [Ultram -] 50 mg PO Q6H PRN tablet MDD 4 07/22/18 Family Disease History - Family Disease History Family Disease History: Other: Father ( age 50 CVA), Mother ( 82 ), Brother (stomach cancer), Sister (breast cancer) Review of Systems - Review of Systems Constitutional: reports: Other (Intubated sedated) Eyes: reports: No Symptoms HENT: reports: No Symptoms Neck: reports: No Symptoms Cardiovascular: reports: Other (Arrhythmias) Respiratory: reports: Other (Respiratory failure) Gastrointestinal: reports: No Symptoms Genitourinary: reports: No Symptoms Breasts: reports: No Symptoms Reported Musculoskeletal: reports: No Symptoms Integumentary: reports: No Symptoms Neurological: reports: Change in LOC, Confusion Endocrine: reports: Other (Hyperosmolar state) Hematology/Lymphatic: reports: No Symptoms Psychiatric: reports: No Symptoms Vital Signs: Vital Signs Temperature 100.5 F H 11/14/18 12:00 Pulse Rate 86 11/14/18 13:00 Respiratory Rate 24 H 11/14/18 13:00 Blood Pressure 119/43 L 11/14/18 13:00 O2 Sat by Pulse Oximetry (%) 100 11/14/18 09:00 Constitutional: Yes: Obese Eyes: Yes: WNL, Conjunctiva Clear HENT: Yes: Atraumatic, Normocephalic Neck: Yes: Other (Intubated) Respiratory: Yes: Mechanically Ventilated Gastrointestinal: Yes: WNL, Normal Bowel Sounds, Soft Cardiovascular: Yes: Pulse Irregular JVD: No Carotid Bruit: No PMI: Non-Displaced Heart Sounds: Yes: S1, S2 Murmur: Yes: Systolic Murmur, Grade 2 (Edema, ulcers) Extremities: Yes: Other (Edema, ulcers) Edema: Yes Edema: LLE: 1+, RLE: 1+ Peripheral Pulses WNL: No Peripheral Pulses: 1+ Left Carotid, 1+ Right Carotid, 1+ Left Femoral, 1+ Right Femoral, 1+ Left Popliteal, 1+ Right Popliteal, 1+ Left Doralis Pedis, 1+ Right Dorsalis Pedis Integumentary: Yes: WNL Neurological: Yes: Other (Sedated) - Other Data Labs, Other Data: CBC, BMP 11/14/18 05:15 11/14/18 12:56 INR, PTT INR 1.23 (0.83-1.09) H 11/13/18 17:48 Troponin, BNP 11/13/18 11/13/18 11/13/18 17:48 23:00 23:00 Troponin I < 0.02 B-Natriuretic Peptide 1043.3 H Cancelled Troponin, BNP 11/13/18 11/13/18 11/13/18 17:48 23:00 23:00 Troponin I < 0.02 B-Natriuretic Peptide 1043.3 H Cancelled Assessment/Plan The patient is a 53-year-old morbidly obese female, we've a history of diabetes , hypertension, hyperlipidemia, chronic atrial fibrillation on Eliquis, chronic venous stasis and leg ulcers, appendicitis 07/15, admitted 11/13/2018 with mental status changes, confusion, respiratory distress and septic. The patient developed torsade de pointes which broke with magnesium. She is currently intubated on pressors in atrial fibrillation. Ventricular rates are reasonably well controlled. The patient is septic on pressors. There's no evidence of ischemia nor acute coronary syndrome. Would continue ventilatory support as currently. There is no need for further cardiac workup at this point. Please keep all electrolytes well repleted. Avoid agents that may cause QT prolongation. Rule out digoxin toxicity. Cardiac stable.
[2018-11-14 19:54] LABS: CALCIUM 7.5 mg/dL (8.5-10.1); POTASSIUM 3.6 mmol/L (3.5-5.1)
[2018-11-14 19:55] LABS: BLOOD UREA NITROGEN 84.3 mg/dL (7-18); CREATININE 2.3 mg/dL (0.55-1.3)
[2018-11-14] MEDS: ACETAMINOPHEN 1000 MG/100 ML VIAL (NON FORMULARY) IVPB PRN (20:06)
[2018-11-14] MEDS: MEROPENEM 1 GM in DEXTROSE 5%-WATER 100 ML IVPB SCH (21:07)
[2018-11-14] MEDS: SODIUM CHLORIDE 0.45% 1,000 ML with SODIUM BICARBONATE 8.4% - 75 MEQ IV SCH (22:27)
[2018-11-15] MEDS: INSULIN SLIDING SCALE (NOVOLOG) 1 VIAL SQ SCH ×6 (00:25→20:59)
[2018-11-15 06:30] LABS: BASO % 0.2 % (0-2.0); EOS % 4.1 % (0-4.5); HEMATOCRIT 30.4 % (32.4-45.2); HEMOGLOBIN 10.2 GM/dL (10.7-15.3); LYMPH % 2.7 % (8-40); MCH 27.8 pg (25.7-33.7); MCHC 33.5 g/dl (32.0-36.0); MEAN CELL VOLUME 83.1 fl (80-96); MEAN PLT VOLUME 10.4 fl (7.5-11.1); MONO % 4.7 % (3.8-10.2); NEUT % 88.3 % (42.8-82.8); PLATELET COUNT 190 K/MM3 (134-434); RBC 3.66 M/mm3 (3.60-5.2); RDW 15.7 % (11.6-15.6); WHITE BLOOD COUNT 14.4 K/mm3 (4.0-10.0)
[2018-11-15 06:54] LABS: ALBUMIN 2.1 g/dl (3.4-5.0); BILIRUBIN,TOTAL 0.4 mg/dL (0.2-1); BLOOD UREA NITROGEN 78.1 mg/dL (7-18); CALCIUM 7.6 mg/dL (8.5-10.1); PHOSPHOROUS 3.5 mg/dL (2.5-4.9); POTASSIUM 3.8 mmol/L (3.5-5.1); TOT PROT 5.6 g/dl (6.4-8.2)
--- NOTE | 2018-11-15 08:41 | PN ---
Progress Note (short form) - Note Progress Note: Renal follow up for NOVA Coverage for Pt seen and examined in the ICU awake on Venti mask s/p HD yesterday making urine denies any sob, cp, abd pain, fever or chills has pain in legs Vital Signs Temperature 99.8 F H 11/15/18 06:00 Pulse Rate 85 11/15/18 06:07 Respiratory Rate 24 H 11/15/18 06:00 Blood Pressure 103/47 L 11/15/18 06:07 O2 Sat by Pulse Oximetry (%) 100 11/14/18 21:00 Intake & Output 11/12/18 11/13/18 11/14/18 11/15/18 23:59 23:59 23:59 23:59 Intake Total 700 1835 Output Total 450 1950 1000 Balance -450 -1250 835 Weight 147.41 kg 142.201 kg 141.974 kg NAD awake and alert RRR Dec BS, no rales obese, NT/ND LE in dressing CBC, BMP 11/15/18 05:30 11/15/18 05:30 Current Medications Acetaminophen (Ofirmev Injection -) 1,000 mg IVPB Q6H PRN PRN Reason: PAIN OR FEVER Last Admin: 11/14/18 20:06 Dose: 1,000 mg Albuterol/Ipratropium (Duoneb -) 1 amp NEB Q6H PRN PRN Reason: SHORTNESS OF BREATH Budesonide/Formoterol Fumarate (Symbicort 80/4.5mcg -) 2 puff IH BID LANCE Last Admin: 11/14/18 22:26 Dose: 2 puff Meropenem 1 gm/ Dextrose 100 mls @ 200 mls/hr IVPB BID LANCE Last Admin: 11/14/18 21:07 Dose: 200 mls/hr Norepinephrine Bitartrate 8, (000 mcg/ Dextrose) 500 mls @ 18.75 mls/hr IV TITR [facility]; Protocol Last Titration: 11/15/18 06:07 Dose: 6 mcg/min, 22.5 mls/hr Sodium Chloride (Normal Saline -) 250 mls @ 3,000 mls/hr IV PRN PRN PRN Reason: Hypotension during Dialysis Stop: 11/15/18 14:00 Sodium Bicarbonate 75 meq/ (Sodium Chloride) 1,075 mls @ 125 mls/hr IV ASDIR [facility] Last Admin: 11/14/18 22:27 Dose: 125 mls/hr Insulin Aspart (Novolog Vial Sliding Scale -) 1 vial SQ Q4H [facility]; Protocol Last Admin: 11/15/18 05:41 Dose: 2 units Metoprolol Tartrate (Lopressor -) 25 mg PO DAILY [facility] Last Admin: 11/14/18 13:01 Dose: Not Given Pantoprazole Sodium (Protonix Iv) 40 mg IVPUSH DAILY [facility] Last Admin: 11/14/18 09:46 Dose: 40 mg Polyethylene Glycol (Miralax (For Daily Use) -) 17 gm PO DAILY [facility] Last Admin: 11/14/18 10:00 Dose: Not Given 53 year old female with pmhx of nova requiring HD, DM, active cellulitis, a-fib, htn, asthma, and bipolar who presents to the ER with hypotension and altered mental status with NOVA. #Acute kidney injury in setting of sepsis #Sepsis/LE wounds #Metabolic acidosis #Septic shock #Anemia tolerated dialysis yesterday No overt electrolyte abnormalities, acid/base status improved and pt is non- oliguric will defer any additional dialysis today, reaccess in AM continue Abx as per ID ICU monitoring Keep MAP > 65 continue 1/2 NS with sodium bicarb Trend urine output Khoa Terry DO
--- NOTE | 2018-11-15 09:02 | PN ---
Progress Note, Physician Chief Complaint: ARF DM Toxic Metabolic Encephalopathy Cellulitis History of Present Illness: Previous notes and events reviewed sleepy but arouseable to verbal and tactile stimuli CVP monitoring BC negative Leukocytosis Venti Mask 50% patient is making urine BUN/Cr beginning to trend down since dialysis started - Current Medication List Current Medications: Active Medications Acetaminophen (Ofirmev Injection -) 1,000 mg IVPB Q6H PRN PRN Reason: PAIN OR FEVER Last Admin: 11/14/18 20:06 Dose: 1,000 mg Albuterol/Ipratropium (Duoneb -) 1 amp NEB Q6H PRN PRN Reason: SHORTNESS OF BREATH Budesonide/Formoterol Fumarate (Symbicort 80/4.5mcg -) 2 puff IH BID [facility] Last Admin: 11/14/18 22:26 Dose: 2 puff Meropenem 1 gm/ Dextrose 100 mls @ 200 mls/hr IVPB BID [facility] Last Admin: 11/14/18 21:07 Dose: 200 mls/hr Norepinephrine Bitartrate 8, (000 mcg/ Dextrose) 500 mls @ 18.75 mls/hr IV TITR [facility]; Protocol Last Titration: 11/15/18 06:07 Dose: 6 mcg/min, 22.5 mls/hr Sodium Chloride (Normal Saline -) 250 mls @ 3,000 mls/hr IV PRN PRN PRN Reason: Hypotension during Dialysis Stop: 11/15/18 14:00 Sodium Bicarbonate 75 meq/ (Sodium Chloride) 1,075 mls @ 125 mls/hr IV ASDIR [facility] Last Admin: 11/14/18 22:27 Dose: 125 mls/hr Insulin Aspart (Novolog Vial Sliding Scale -) 1 vial SQ Q4H [facility]; Protocol Last Admin: 11/15/18 05:41 Dose: 2 units Metoprolol Tartrate (Lopressor -) 25 mg PO DAILY [facility] Last Admin: 11/14/18 13:01 Dose: Not Given Pantoprazole Sodium (Protonix Iv) 40 mg IVPUSH DAILY [facility] Last Admin: 11/14/18 09:46 Dose: 40 mg Polyethylene Glycol (Miralax (For Daily Use) -) 17 gm PO DAILY [facility] Last Admin: 11/14/18 10:00 Dose: Not Given - Objective Vital Signs: Vital Signs Temperature 99.8 F H 11/15/18 06:00 Pulse Rate 85 11/15/18 06:07 Respiratory Rate 24 H 11/15/18 06:00 Blood Pressure 103/47 L 11/15/18 06:07 O2 Sat by Pulse Oximetry (%) 100 11/14/18 21:00 Constitutional: Yes: No Distress, Calm Eyes: Yes: Conjunctiva Clear HENT: Yes: Atraumatic Cardiovascular: Yes: Regular Rate and Rhythm Respiratory: Yes: Regular, Diminished, On Venti-Mask Gastrointestinal: Yes: Normal Bowel Sounds, Soft, Abdomen, Obese, Tenderness ( diffuse) Genitourinary: Yes: Incontinence Musculoskeletal: Yes: Muscle Weakness Edema: Yes (B/L hands) Neurological: Yes: Alert, Oriented Psychiatric: Yes: Alert, Oriented Labs: CBC, BMP 11/15/18 05:30 11/15/18 05:30 INR, PTT INR 1.23 (0.83-1.09) H 11/13/18 17:48 Microbiology 11/13/18 17:48 Blood - Peripheral Venous Blood Culture - Preliminary NO GROWTH OBTAINED AFTER 24 HOURS, INCUBATION TO CONTINUE FOR 4 DAYS. 11/13/18 17:48 Blood - Peripheral Venous Blood Culture - Preliminary NO GROWTH OBTAINED AFTER 24 HOURS, INCUBATION TO CONTINUE FOR 4 DAYS. Problem List - Problems (1) ARF (acute renal failure) Assessment/Plan: -Renal on board -BUN/Cr 78.1/2.0 -shiley R shoulder for dialysis -per renal hold off on dialysis today due to making more urine and BUN/Cr showing downtrend, if need will have dialysis tomorrow morning -CVP monitoring -IV hydration Code(s): N17.9 - ACUTE KIDNEY FAILURE, UNSPECIFIED (2) Cellulitis Assessment/Plan: -ID on board -Leukocytosis -low grade fever -LA 2.5 -BC neg -Meropenem -dressing to B/L lower extremity Code(s): L03.90 - CELLULITIS, UNSPECIFIED Qualifiers: Site of cellulitis: unspecified site Qualified Code(s): L03.90 - Cellulitis , unspecified (3) Encephalopathy due to metabolic factor or toxin Assessment/Plan: -improving Code(s): BKR3369 - (4) Morbid (severe) obesity due to excess calories Code(s): E66.01 - MORBID (SEVERE) OBESITY DUE TO EXCESS CALORIES (5) Sepsis Assessment/Plan: -ID on board -Leukocytosis -low grade fever -LA 2.5 -BC neg -Meropenem -UC pending Code(s): A41.9 - SEPSIS, UNSPECIFIED ORGANISM Qualifiers: Sepsis type: sepsis due to unspecified organism Qualified Code(s): A41.9 - Sepsis, unspecified organism (6) Afib Assessment/Plan: -Eliquis on hold 2/2 ARF -will start Heparin drip -Serial CBCs and Stool OB Code(s): I48.91 - UNSPECIFIED ATRIAL FIBRILLATION Qualifiers: Atrial fibrillation type: paroxysmal Qualified Code(s): I48.0 - Paroxysmal atrial fibrillation (7) DM2 (diabetes mellitus, type 2) Assessment/Plan: -BGM ACHS -ISS Code(s): E11.9 - TYPE 2 DIABETES MELLITUS WITHOUT COMPLICATIONS Qualifiers: Diabetes mellitus prison insulin use: with prison use Diabetes mellitus complication detail: with other circulatory complications (8) HTN (hypertension) Assessment/Plan: -BP meds on hold -Levophed for hypotension Code(s): I10 - ESSENTIAL (PRIMARY) HYPERTENSION Assessment/Plan see problem list
[2018-11-15] MEDS ORDERED: HEPARIN NA (PORCINE) 5,000 UNITS/ML 1ML VIAL IVPUSH PRN ×2 (09:23)
[2018-11-15] MEDS ORDERED: MEROPENEM 1 GM VIAL (RESTRICTED TO ID) IVPB ONE ×2 (09:40→21:17)
[2018-11-15] MEDS ORDERED: DEXTROSE 5%-WATER 100 ML IVPB ONE ×2 (09:41→21:17)
[2018-11-15] MEDS: MEROPENEM 1 GM in DEXTROSE 5%-WATER 100 ML IVPB SCH ×2 (09:45→21:20)
[2018-11-15] MEDS: PANTOPRAZOLE SODIUM 40 MG VIAL IVPUSH SCH (09:45)
[2018-11-15] MEDS: BUDESONIDE/FORMETEROL FUMARATE 80/4.5 mcg INHALER IH SCH ×2 (09:45→21:21)
[2018-11-15] MEDS: HEPARIN - 25,000 UNIT in SODIUM CHLORIDE 495 ML IV SCH (10:27)
--- NOTE | 2018-11-15 10:38 | PN ---
Teaching Attending Note Name of Resident: Danie Myers ATTENDING PHYSICIAN STATEMENT I saw and evaluated the patient. I reviewed the resident's note and discussed the case with the resident. I agree with the resident's findings and plan as documented. SUBJECTIVE: Patient seen and examined in the ICU. More awake and alert. Remains on VM O2 but reports breathing is better. NE @ 5 mcq for hemodynamic support. Intake & Output 11/12/18 11/13/18 11/14/18 11/15/18 23:59 23:59 23:59 23:59 Intake Total 700 1835 Output Total 450 1950 1000 Balance -450 -1250 835 Weight 324 lb 15.734 oz 313 lb 8 oz 313 lb Last Vital Signs Temp Pulse Resp BP Pulse Ox 99.8 F H 80 24 H 94/53 L 100 11/15/18 06:00 11/15/18 08:00 11/15/18 08:00 11/15/18 08:00 11/15/18 09:00 Active Medications Acetaminophen (Ofirmev Injection -) 1,000 mg IVPB Q6H PRN PRN Reason: PAIN OR FEVER Last Admin: 11/14/18 20:06 Dose: 1,000 mg Albuterol/Ipratropium (Duoneb -) 1 amp NEB Q6H PRN PRN Reason: SHORTNESS OF BREATH Budesonide/Formoterol Fumarate (Symbicort 80/4.5mcg -) 2 puff IH BID LANCE Last Admin: 11/15/18 09:45 Dose: Not Given Heparin Sodium (Porcine) (Heparin -) 1,000 unit IVPUSH PRN PRN PRN Reason: Heparin Heparin Sodium (Porcine) (Heparin -) 5,000 unit IVPUSH PRN PRN PRN Reason: Heparin Meropenem 1 gm/ Dextrose 100 mls @ 200 mls/hr IVPB BID [facility] Last Admin: 11/15/18 09:45 Dose: 200 mls/hr Norepinephrine Bitartrate 8, (000 mcg/ Dextrose) 500 mls @ 18.75 mls/hr IV TITR [facility]; Protocol Last Titration: 11/15/18 06:07 Dose: 6 mcg/min, 22.5 mls/hr Sodium Chloride (Normal Saline -) 250 mls @ 3,000 mls/hr IV PRN PRN PRN Reason: Hypotension during Dialysis Stop: 11/15/18 14:00 Sodium Bicarbonate 75 meq/ (Sodium Chloride) 1,075 mls @ 125 mls/hr IV ASDIR [facility] Last Admin: 11/14/18 22:27 Dose: 125 mls/hr Heparin Sodium (Porcine) 25, (000 unit/ Sodium Chloride) 500 mls @ 20 mls/hr IV TITR [facility]; Protocol Last Admin: 11/15/18 10:27 Dose: 1,000 unit/hr, 20 mls/hr Insulin Aspart (Novolog Vial Sliding Scale -) 1 vial SQ Q4H [facility]; Protocol Last Admin: 11/15/18 09:38 Dose: Not Given Metoprolol Tartrate (Lopressor -) 25 mg PO DAILY [facility] Last Admin: 11/14/18 13:01 Dose: Not Given Pantoprazole Sodium (Protonix Iv) 40 mg IVPUSH DAILY [facility] Last Admin: 11/15/18 09:45 Dose: 40 mg Polyethylene Glycol (Miralax (For Daily Use) -) 17 gm PO DAILY [facility] Last Admin: 11/14/18 10:00 Dose: Not Given GENERAL: Drowsy but more awake and alert. Mildly tachypneic at rest. HEENT: NC/AT, ISAIAH, sclera anicteric, dry mucosa noted NECK: Excessive soft tissues, no overt JVD however difficult to assess LUNGS: Distant breath sounds, diminished bibasillarly. No wheezes. No accessory muscle use. 2LNC SpO2 95% HEART: Distant cardiac sounds, Irregularly irregular rhythm with normal rate, normal S1 and S2 without murmur ABDOMEN: Soft, obese, nondistended, mild tenderness in RLQ, normoactive BS, no guarding. MUSCULOSKELETAL: No CVA tenderness. EXTREMITIES: 2+ DP pulses, hot, well-perfused. Large erythematous stasis wounds with purulent discharge (R>L) with iodoform and gauze bandage, malodorous PSYCHIATRIC: Cooperative. Good eye contact. Appropriate mood and affect. SKIN: Warm, dry, no rashes, lesions as EXT exam Laboratory Results - last 24 hr 11/14/18 11/14/18 11/14/18 05:15 12:56 13:21 WBC RBC Hgb Hct MCV MCH MCHC RDW Plt Count MPV Absolute Neuts (auto) Neutrophils % Neutrophils % (Manual) 78.4 Band Neutrophils % 20.6 Lymphocytes % Lymphocytes % (Manual) 1.0 L D Monocytes % Monocytes % (Manual) 0 L D Eosinophils % Eosinophils % (Manual) 0.0 Basophils % Basophils % (Manual) 0.0 Myelocytes % (Man) 0 D Promyelocytes % (Man) 0 Blast Cells % (Manual) 0 Nucleated RBC % 0 Metamyelocytes 0 Hypochromia 0 Platelet Estimate Normal Polychromasia 0 Poikilocytosis 0 Anisocytosis 0 Microcytosis 0 Macrocytosis 0 Sodium 141 Potassium 5.3 H Chloride 122 H Carbon Dioxide 11 L Anion Gap 9 BUN 150.0 H* Creatinine 4.1 H Est GFR (CKD-EPI)AfAm 13.34 Est GFR (CKD-EPI)NonAf 11.51 POC Glucometer 189 Random Glucose 206 H Calcium 7.6 L Phosphorus Magnesium Total Bilirubin 0.3 AST 24 ALT 24 Alkaline Phosphatase 164 H Total Protein 5.7 L Albumin 2.1 L 11/14/18 11/14/18 11/14/18 17:03 17:06 19:00 WBC RBC Hgb Hct MCV MCH MCHC RDW Plt Count MPV Absolute Neuts (auto) Neutrophils % Neutrophils % (Manual) Band Neutrophils % Lymphocytes % Lymphocytes % (Manual) Monocytes % Monocytes % (Manual) Eosinophils % Eosinophils % (Manual) Basophils % Basophils % (Manual) Myelocytes % (Man) Promyelocytes % (Man) Blast Cells % (Manual) Nucleated RBC % Metamyelocytes Hypochromia Platelet Estimate Polychromasia Poikilocytosis Anisocytosis Microcytosis Macrocytosis Sodium 143 Potassium 3.6 Chloride 112 H Carbon Dioxide 19 L Anion Gap 12 BUN 84.3 H Creatinine 2.3 H Est GFR (CKD-EPI)AfAm 26.83 Est GFR (CKD-EPI)NonAf 23.15 POC Glucometer 139 188 Random Glucose 241 H Calcium 7.5 L Phosphorus Magnesium Total Bilirubin AST ALT Alkaline Phosphatase Total Protein Albumin 11/14/18 11/15/18 11/15/18 20:18 00:19 05:30 WBC 14.4 H RBC 3.66 Hgb 10.2 L Hct 30.4 L MCV 83.1 MCH 27.8 MCHC 33.5 RDW 15.7 H Plt Count 190 MPV 10.4 Absolute Neuts (auto) 12.7 H Neutrophils % 88.3 H Neutrophils % (Manual) Band Neutrophils % Lymphocytes % 2.7 L D Lymphocytes % (Manual) Monocytes % 4.7 D Monocytes % (Manual) Eosinophils % 4.1 D Eosinophils % (Manual) Basophils % 0.2 D Basophils % (Manual) Myelocytes % (Man) Promyelocytes % (Man) Blast Cells % (Manual) Nucleated RBC % 0 Metamyelocytes Hypochromia Platelet Estimate Polychromasia Poikilocytosis Anisocytosis Microcytosis Macrocytosis Sodium Potassium Chloride Carbon Dioxide Anion Gap BUN Creatinine Est GFR (CKD-EPI)AfAm Est GFR (CKD-EPI)NonAf POC Glucometer 238 244 Random Glucose Calcium Phosphorus Magnesium Total Bilirubin AST ALT Alkaline Phosphatase Total Protein Albumin 11/15/18 11/15/18 05:30 05:38 WBC RBC Hgb Hct MCV MCH MCHC RDW Plt Count MPV Absolute Neuts (auto) Neutrophils % Neutrophils % (Manual) Band Neutrophils % Lymphocytes % Lymphocytes % (Manual) Monocytes % Monocytes % (Manual) Eosinophils % Eosinophils % (Manual) Basophils % Basophils % (Manual) Myelocytes % (Man) Promyelocytes % (Man) Blast Cells % (Manual) Nucleated RBC % Metamyelocytes Hypochromia Platelet Estimate Polychromasia Poikilocytosis Anisocytosis Microcytosis Macrocytosis Sodium 144 Potassium 3.8 Chloride 113 H Carbon Dioxide 22 Anion Gap 9 BUN 78.1 H Creatinine 2.0 H Est GFR (CKD-EPI)AfAm 31.77 Est GFR (CKD-EPI)NonAf 27.41 POC Glucometer 225 Random Glucose 225 H Calcium 7.6 L Phosphorus 3.5 Magnesium 2.0 Total Bilirubin 0.4 AST 22 ALT 27 Alkaline Phosphatase 150 H Total Protein 5.6 L Albumin 2.1 L ASSESSMENT/PLAN: Acute toxic metabolic encephalopathy Polymorphic Ventricular Tachycardia Septic Shock / Sepsis 2/2 to cellulitis; r/o bacteremia Hyperglycemia Acute kidney failure Uremia Metabolic acidosis Hyperkalemia T2DM Morbid obesity HTN Titrate pressors for MAP > 65 Strict I & O Follow CVP IVF for CVP 8 to 12 ABX coverage per ID Sampson-culture HD per Renal Follow CXR Can use HFOT for increased WOB Glycemic control Requires ICU monitoring Dr Andre Critical care time spent in reviewing chart, evaluating patient and formulating plan - 36 minutes.
[2018-11-15] MEDS ORDERED: INSULIN (NOVOLOG) ASPART 100 UNITS/ML 10ML VIAL ONE (12:00)
[2018-11-15] MEDS: POLYETHYLENE GLYCOL 3350 119 GM BTL PO SCH (12:10)
[2018-11-15] MEDS: METOPROLOL TARTRATE 25 MG TABLET (FP) PO SCH (12:10)
[2018-11-15] MEDS: ACETAMINOPHEN 1000 MG/100 ML VIAL (NON FORMULARY) IVPB PRN (12:13)
--- NOTE | 2018-11-15 12:40 | EKG ---
Test Reason : Blood Pressure : / mmHG Vent. Rate : 091 BPM Atrial Rate : 093 BPM P-R Int : 000 ms QRS Dur : 082 ms QT Int : 326 ms P-R-T Axes : 000 017 -03 degrees QTc Int : 400 ms ATRIAL FIBRILLATION LOW VOLTAGE QRS NONSPECIFIC ST AND T WAVE ABNORMALITY ABNORMAL ECG Confirmed by GIFTY SNOWDEN MD ([id number]) on 11/15/2018 12:40:23 PM Referred By: Confirmed By:GIFTY SNOWDEN MD
--- NOTE | 2018-11-15 13:36 | PN ---
Physical Exam: SUBJECTIVE: Patient seen and examined at bedside. On levo of 5. No acute complaints. A&Ox3. OBJECTIVE: Vital Signs Period Temp Pulse Resp BP Sys/Callahan Pulse Ox Last 24 Hr 98.9 F-100.5 F 75-99 17-28 92-145/40-71 100-100 GENERAL: A&Ox3, no acute distress EYES: PERRLA, EOMI ENT: Moist mucus membranes NECK: No JVD LUNGS: CTA, no wheezes HEART: RRR, no murmurs ABDOMEN: Soft, nontender, BS present MUSCULOSKELETAL: No CVA Tenderness EXTREMITIES: 2+ pulses, no edema. Dialysis catheter in R neck. NEUROLOGICAL: Cranial nerves II-XII intact. Laboratory Results - last 24 hr 11/14/18 11/14/18 11/14/18 12:56 17:03 17:06 WBC RBC Hgb Hct MCV MCH MCHC RDW Plt Count MPV Absolute Neuts (auto) Neutrophils % Lymphocytes % Monocytes % Eosinophils % Basophils % Nucleated RBC % Sodium 141 Potassium 5.3 H Chloride 122 H Carbon Dioxide 11 L Anion Gap 9 BUN 150.0 H* Creatinine 4.1 H Est GFR (CKD-EPI)AfAm 13.34 Est GFR (CKD-EPI)NonAf 11.51 POC Glucometer 139 188 Random Glucose 206 H Calcium 7.6 L Phosphorus Magnesium Total Bilirubin 0.3 AST 24 ALT 24 Alkaline Phosphatase 164 H Total Protein 5.7 L Albumin 2.1 L 11/14/18 11/14/18 11/15/18 19:00 20:18 00:19 WBC RBC Hgb Hct MCV MCH MCHC RDW Plt Count MPV Absolute Neuts (auto) Neutrophils % Lymphocytes % Monocytes % Eosinophils % Basophils % Nucleated RBC % Sodium 143 Potassium 3.6 Chloride 112 H Carbon Dioxide 19 L Anion Gap 12 BUN 84.3 H Creatinine 2.3 H Est GFR (CKD-EPI)AfAm 26.83 Est GFR (CKD-EPI)NonAf 23.15 POC Glucometer 238 244 Random Glucose 241 H Calcium 7.5 L Phosphorus Magnesium Total Bilirubin AST ALT Alkaline Phosphatase Total Protein Albumin 11/15/18 11/15/18 11/15/18 05:30 05:30 05:38 WBC 14.4 H RBC 3.66 Hgb 10.2 L Hct 30.4 L MCV 83.1 MCH 27.8 MCHC 33.5 RDW 15.7 H Plt Count 190 MPV 10.4 Absolute Neuts (auto) 12.7 H Neutrophils % 88.3 H Lymphocytes % 2.7 L D Monocytes % 4.7 D Eosinophils % 4.1 D Basophils % 0.2 D Nucleated RBC % 0 Sodium 144 Potassium 3.8 Chloride 113 H Carbon Dioxide 22 Anion Gap 9 BUN 78.1 H Creatinine 2.0 H Est GFR (CKD-EPI)AfAm 31.77 Est GFR (CKD-EPI)NonAf 27.41 POC Glucometer 225 Random Glucose 225 H Calcium 7.6 L Phosphorus 3.5 Magnesium 2.0 Total Bilirubin 0.4 AST 22 ALT 27 Alkaline Phosphatase 150 H Total Protein 5.6 L Albumin 2.1 L 11/15/18 11:01 WBC RBC Hgb Hct MCV MCH MCHC RDW Plt Count MPV Absolute Neuts (auto) Neutrophils % Lymphocytes % Monocytes % Eosinophils % Basophils % Nucleated RBC % Sodium Potassium Chloride Carbon Dioxide Anion Gap BUN Creatinine Est GFR (CKD-EPI)AfAm Est GFR (CKD-EPI)NonAf POC Glucometer 246 Random Glucose Calcium Phosphorus Magnesium Total Bilirubin AST ALT Alkaline Phosphatase Total Protein Albumin Active Medications Generic Name Dose Route Start Last Admin Trade Name Freq PRN Reason Stop Dose Admin Acetaminophen 1,000 mg 11/14/18 19:48 11/15/18 12:13 Ofirmev Injection - IVPB 1,000 mg Q6H PRN Administration PAIN OR FEVER Albuterol/Ipratropium 1 amp 11/13/18 22:58 Duoneb - NEB Q6H PRN SHORTNESS OF BREATH Budesonide/Formoterol Fumarate 2 puff 11/14/18 10:00 11/15/18 09:45 Symbicort 80/4.5mcg - IH Not Given BID LANCE Heparin Sodium (Porcine) 1,000 unit 11/15/18 09:23 Heparin - IVPUSH PRN PRN Heparin Heparin Sodium (Porcine) 5,000 unit 11/15/18 09:23 Heparin - IVPUSH PRN PRN Heparin Meropenem 1 gm/ Dextrose 100 mls @ 200 mls/hr 11/14/18 22:00 11/15/18 09:45 IVPB 200 mls/hr BID LANCE Administration Norepinephrine Bitartrate 8, 500 mls @ 18.75 mls/hr 11/14/18 13:45 11/15/18 06:07 000 mcg/ Dextrose IV 6 mcg/min TITR LANCE 22.5 mls/hr Titration Protocol 5 MCG/MIN Sodium Chloride 250 mls @ 3,000 mls/hr 11/14/18 14:00 Normal Saline - IV 11/15/18 14:00 PRN PRN Hypotension during Dialysis Sodium Bicarbonate 75 meq/ 1,075 mls @ 125 mls/hr 11/14/18 19:21 11/14/18 22: 27 Sodium Chloride IV 125 mls/hr ASDIR LANCE Administration Heparin Sodium (Porcine) 25, 500 mls @ 20 mls/hr 11/15/18 09:30 11/15/18 10: 27 000 unit/ Sodium Chloride IV 1,000 unit/hr TITR LANCE 20 mls/hr Administration Protocol 1,000 UNIT/HR Insulin Aspart 1 vial 11/14/18 00:45 11/15/18 12:10 Novolog Vial Sliding Scale - SQ 4 units Q4H LANCE Administration Protocol Metoprolol Tartrate 25 mg 11/14/18 10:00 11/15/18 12:10 Lopressor - PO Not Given DAILY LANCE Pantoprazole Sodium 40 mg 11/14/18 10:00 11/15/18 09:45 Protonix Iv IVPUSH 40 mg DAILY LANCE Administration Polyethylene Glycol 17 gm 11/14/18 10:00 11/15/18 12:10 Miralax (For Daily Use) - PO Not Given DAILY LANCE ASSESSMENT/PLAN: 53 y/o female with PMH of HTN, DM, Afib (on eliquis), B/L chronic venous ulcers who who was brought to the ED by her brother with a for altered mental status and lethargy and admitted for likely uremic encephalopathy #Neurologic -altered mental status improved -head CT was negative -utox negative -frequent neuro checks #Cardiovascular -no further cardiac events on tele monitor -patient was hypotensive overnight and has been on levophed of 5, down to 4 currently -holding home anti-hypertensives -daily EKG's -avoid QTc prolonging agents -monitor hemodynamics; maintain MAPS >65 -cardio consulted #Endocrine -currently on ISS -monitor BGMS ACHS #ID -patient currently on meropenem -ID on board -blood and urine cx pending #Pulmonary -CXR did not show any signs of acute pathology -c/w duonebs and symbicort #Renal -renal function improved today, will hold HD today and dialyze tomorrow per renal= -nephro on board DVT PPX:SCDS GI PPX: protonix Visit type - Emergency Visit Emergency Visit: No - New Patient This patient is new to me today: No - Critical Care Critical Care patient: Yes Total Critical Care Time (in minutes): 38 Critical Care Statement: The care of this patient involved high complexity decision making to prevent further life threatening deterioration of the patient 's condition and/or to evaluate & treat vital organ system(s) failure or risk of failure.
--- NOTE | 2018-11-15 15:03 | PN ---
Progress Note, Physician Chief Complaint: Cardiology FU Extubated. On norepinephrine Telem Afib. Echo normal EF no valulopathy. Mild pulm Htn - Current Medication List Current Medications: Active Medications Acetaminophen (Ofirmev Injection -) 1,000 mg IVPB Q6H PRN PRN Reason: PAIN OR FEVER Last Admin: 11/15/18 12:13 Dose: 1,000 mg Albuterol/Ipratropium (Duoneb -) 1 amp NEB Q6H PRN PRN Reason: SHORTNESS OF BREATH Budesonide/Formoterol Fumarate (Symbicort 80/4.5mcg -) 2 puff IH BID LANCE Last Admin: 11/15/18 09:45 Dose: Not Given Heparin Sodium (Porcine) (Heparin -) 1,000 unit IVPUSH PRN PRN PRN Reason: Heparin Heparin Sodium (Porcine) (Heparin -) 5,000 unit IVPUSH PRN PRN PRN Reason: Heparin Meropenem 1 gm/ Dextrose 100 mls @ 200 mls/hr IVPB BID LANCE Last Admin: 11/15/18 09:45 Dose: 200 mls/hr Norepinephrine Bitartrate 8, (000 mcg/ Dextrose) 500 mls @ 18.75 mls/hr IV TITR LANCE; Protocol Last Titration: 11/15/18 06:07 Dose: 6 mcg/min, 22.5 mls/hr Sodium Bicarbonate 75 meq/ (Sodium Chloride) 1,075 mls @ 125 mls/hr IV ASDIR LANCE Last Admin: 11/14/18 22:27 Dose: 125 mls/hr Heparin Sodium (Porcine) 25, (000 unit/ Sodium Chloride) 500 mls @ 20 mls/hr IV TITR LANCE; Protocol Last Admin: 11/15/18 10:27 Dose: 1,000 unit/hr, 20 mls/hr Insulin Aspart (Novolog Vial Sliding Scale -) 1 vial SQ Q4H LANCE; Protocol Last Admin: 11/15/18 12:10 Dose: 4 units Metoprolol Tartrate (Lopressor -) 25 mg PO DAILY LANCE Last Admin: 11/15/18 12:10 Dose: Not Given Pantoprazole Sodium (Protonix Iv) 40 mg IVPUSH DAILY LANCE Last Admin: 11/15/18 09:45 Dose: 40 mg Polyethylene Glycol (Miralax (For Daily Use) -) 17 gm PO DAILY LANCE Last Admin: 11/15/18 12:10 Dose: Not Given - Objective Vital Signs: Vital Signs Temperature 98.8 F 11/15/18 14:00 Pulse Rate 68 11/15/18 14:00 Respiratory Rate 24 H 11/15/18 14:00 Blood Pressure 111/53 L 11/15/18 14:00 O2 Sat by Pulse Oximetry (%) 100 11/15/18 09:00 Constitutional: Yes: Well Nourished, No Distress Eyes: Yes: Conjunctiva Clear HENT: Yes: Atraumatic, Normocephalic Neck: Yes: Supple, Trachea Midline Cardiovascular: Yes: Pulse Irregular, S1, S2. No: JVD Respiratory: Yes: Regular, CTA Bilaterally Gastrointestinal: Yes: Normal Bowel Sounds Edema: Yes Labs: CBC, BMP 11/15/18 05:30 11/15/18 05:30 INR, PTT INR 1.23 (0.83-1.09) H 11/13/18 17:48 Problem List - Problems (1) Hyperglycemia Code(s): R73.9 - HYPERGLYCEMIA, UNSPECIFIED (2) Metabolic acidosis Code(s): E87.2 - ACIDOSIS (3) Afib Code(s): I48.91 - UNSPECIFIED ATRIAL FIBRILLATION Qualifiers: Atrial fibrillation type: paroxysmal Qualified Code(s): I48.0 - Paroxysmal atrial fibrillation Assessment/Plan Hold Metoprolol while pt is septic and on pressor support. If HR poorly controlled in this setting can use Amiodarone IV.
[2018-11-15] MEDS: NOREPINEPHRINE BITARTRATE 8,000 MCG in DEXTROSE 5%-WATER - 492 ML IV SCH (16:49)
--- NOTE | 2018-11-15 20:04 | PN ---
Progress Note, Physician History of Present Illness: Pt seen and examined. Events noted, labs/imaging results reviewed. Pt is now extubated. WBC trending down, low grade fevers persist. On low dose NE. Pt is alert and c/o b/l LE pain, no other specific complaints. - Current Medication List Current Medications: Active Medications Acetaminophen (Ofirmev Injection -) 1,000 mg IVPB Q6H PRN PRN Reason: PAIN OR FEVER Last Admin: 11/15/18 12:13 Dose: 1,000 mg Albuterol/Ipratropium (Duoneb -) 1 amp NEB Q6H PRN PRN Reason: SHORTNESS OF BREATH Budesonide/Formoterol Fumarate (Symbicort 80/4.5mcg -) 2 puff IH BID LANCE Last Admin: 11/15/18 09:45 Dose: Not Given Heparin Sodium (Porcine) (Heparin -) 1,000 unit IVPUSH PRN PRN PRN Reason: Heparin Last Admin: 11/15/18 17:27 Dose: 1,000 unit Heparin Sodium (Porcine) (Heparin -) 5,000 unit IVPUSH PRN PRN PRN Reason: Heparin Meropenem 1 gm/ Dextrose 100 mls @ 200 mls/hr IVPB BID LANCE Last Admin: 11/15/18 09:45 Dose: 200 mls/hr Norepinephrine Bitartrate 8, (000 mcg/ Dextrose) 500 mls @ 18.75 mls/hr IV TITR LANCE; Protocol Last Admin: 11/15/18 16:49 Dose: 4 mcg/min, 15 mls/hr Sodium Bicarbonate 75 meq/ (Sodium Chloride) 1,075 mls @ 125 mls/hr IV ASDIR LANCE Last Admin: 11/14/18 22:27 Dose: 125 mls/hr Heparin Sodium (Porcine) 25, (000 unit/ Sodium Chloride) 500 mls @ 20 mls/hr IV TITR LANCE; Protocol Last Titration: 11/15/18 17:17 Dose: 1,100 unit/hr, 22 mls/hr Insulin Aspart (Novolog Vial Sliding Scale -) 1 vial SQ Q4H LANCE; Protocol Last Admin: 11/15/18 16:42 Dose: 2 units Metoprolol Tartrate (Lopressor -) 25 mg PO DAILY LANCE Last Admin: 11/15/18 12:10 Dose: Not Given Pantoprazole Sodium (Protonix Iv) 40 mg IVPUSH DAILY [facility] Last Admin: 11/15/18 09:45 Dose: 40 mg Polyethylene Glycol (Miralax (For Daily Use) -) 17 gm PO DAILY [facility] Last Admin: 11/15/18 12:10 Dose: Not Given - Objective Vital Signs: Vital Signs Temperature 99.9 F H 11/15/18 17:10 Pulse Rate 74 11/15/18 18:40 Respiratory Rate 24 H 11/15/18 18:40 Blood Pressure 128/54 L 11/15/18 18:40 O2 Sat by Pulse Oximetry (%) 100 11/15/18 09:00 Constitutional: Yes: No Distress, Calm Cardiovascular: Yes: Regular Rate and Rhythm Respiratory: Yes: Regular Gastrointestinal: Yes: Normal Bowel Sounds, Soft, Abdomen, Obese Genitourinary: Yes: WNL Extremities: Yes: Erythema (b/l LE) Integumentary: Yes: WNL Wound/Incision: Yes: Other (b/l LE erythema/warmth/edema, ulcers with mild malodorous drainage) Neurological: Yes: Alert Labs: CBC, BMP 11/15/18 05:30 11/15/18 05:30 INR, PTT INR 1.23 (0.83-1.09) H 11/13/18 17:48 - ....Imaging Chest X-ray: Report Reviewed Problem List - Problems (1) ARF (acute renal failure) Code(s): N17.9 - ACUTE KIDNEY FAILURE, UNSPECIFIED (2) Cellulitis Code(s): L03.90 - CELLULITIS, UNSPECIFIED Qualifiers: Site of cellulitis: unspecified site Qualified Code(s): L03.90 - Cellulitis , unspecified (3) Encephalopathy due to metabolic factor or toxin Code(s): ZVL1694 - (4) Hyperglycemia Code(s): R73.9 - HYPERGLYCEMIA, UNSPECIFIED (5) Metabolic acidosis Code(s): E87.2 - ACIDOSIS (6) Morbid (severe) obesity due to excess calories Code(s): E66.01 - MORBID (SEVERE) OBESITY DUE TO EXCESS CALORIES (7) Polymorphic ventricular tachycardia Code(s): I47.2 - VENTRICULAR TACHYCARDIA (8) Sepsis Code(s): A41.9 - SEPSIS, UNSPECIFIED ORGANISM Qualifiers: Sepsis type: sepsis due to unspecified organism Qualified Code(s): A41.9 - Sepsis, unspecified organism (9) Afib Code(s): I48.91 - UNSPECIFIED ATRIAL FIBRILLATION Qualifiers: Atrial fibrillation type: paroxysmal Qualified Code(s): I48.0 - Paroxysmal atrial fibrillation (10) DM2 (diabetes mellitus, type 2) Code(s): E11.9 - TYPE 2 DIABETES MELLITUS WITHOUT COMPLICATIONS Qualifiers: Diabetes mellitus termite technician insulin use: with skilled nursing use Diabetes mellitus complication detail: with other circulatory complications (11) Fever Code(s): R50.9 - FEVER, UNSPECIFIED (12) HTN (hypertension) Code(s): I10 - ESSENTIAL (PRIMARY) HYPERTENSION (13) Ulcers of both lower extremities Code(s): L97.919 - NON-PRS CHRONIC ULC UNSP PRT OF R LOW LEG W UNSP SEVERITY; L97.929 - NON-PRS CHRONIC ULC UNSP PRT OF L LOW LEG W UNSP SEVERITY Qualifiers: Non-pressure ulcer stage: unspecified non-pressure ulcer stage Qualified Code(s): L97.919 - Non-pressure chronic ulcer of unspecified part of right lower leg with unspecified severity; L97.929 - Non-pressure chronic ulcer of unspecified part of left lower leg with unspecified severity; L97.929 - Non- pressure chronic ulcer of unspecified part of left lower leg with unspecified severity; L97.929 - Non-pressure chronic ulcer of unspecified part of left lower leg with unspecified severity; L97.929 - Non-pressure chronic ulcer of unspecified part of left lower leg with unspecified severity (14) Venous stasis Code(s): I87.8 - OTHER SPECIFIED DISORDERS OF VEINS Assessment/Plan 53 y.o. female with PMH of chronic LE ulcers, venous stasis, AFIB, HTN, Asthma, DM, morbid obesity admitted for AMS, leukocytosis, hypotension, fever, acute respiratory failure and NOVA Severe Sepsis B/L LE cellulitis/infected ulcers s/p Acute respiratory failure AFIB DM morbid obesity Renal insufficiency NOVA Fever -- records/labs/imaging results reviewed -- Pt is alert and feeling a bit better -- Low grade fevers noted, remains on NE for hemodynamic support -- continue current antibiotics -- continue wound care -- monitor wbc/temps - wbc trending down -- renal function improving cc: 40 min
[2018-11-16] MEDS: INSULIN SLIDING SCALE (NOVOLOG) 1 VIAL SQ SCH ×7 (01:30→21:36)
[2018-11-16] MEDS: SODIUM CHLORIDE 0.45% 1,000 ML with SODIUM BICARBONATE 8.4% - 75 MEQ IV SCH (01:31)
[2018-11-16 06:24] LABS: HEMATOCRIT 29.2 % (32.4-45.2); HEMOGLOBIN 9.8 GM/dL (10.7-15.3); MCH 28.2 pg (25.7-33.7); MCHC 33.8 g/dl (32.0-36.0); MEAN CELL VOLUME 83.7 fl (80-96); MEAN PLT VOLUME 10.1 fl (7.5-11.1); PLATELET COUNT 188 K/MM3 (134-434); RBC 3.49 M/mm3 (3.60-5.2); RDW 15.5 % (11.6-15.6); WHITE BLOOD COUNT 9.2 K/mm3 (4.0-10.0)
[2018-11-16 06:41] LABS: HEP B CORE AB, TOT Negative (Negative)
[2018-11-16 06:43] LABS: MAGNESIUM 1.7 mg/dL (1.8-2.4); PHOSPHOROUS 2.3 mg/dL (2.5-4.9)
[2018-11-16 06:54] LABS: BILIRUBIN,TOTAL 0.4 mg/dL (0.2-1); BLOOD UREA NITROGEN 52.6 mg/dL (7-18); CALCIUM 7.8 mg/dL (8.5-10.1); CREATININE 1.3 mg/dL (0.55-1.3); POTASSIUM 3.5 mmol/L (3.5-5.1); TOT PROT 5.5 g/dl (6.4-8.2)
--- NOTE | 2018-11-16 08:18 | PN ---
Progress Note (short form) - Note Progress Note: Renal follow up for NOVA Coverage for Pt seen and examined in the ICU awake on room air feels better denies any sob, cp, abd pain, fever or chills making urine via ucevas BP stable Vital Signs Temperature 99 F 11/16/18 06:00 Pulse Rate 73 11/16/18 06:10 Respiratory Rate 17 11/16/18 06:00 Blood Pressure 129/74 11/16/18 06:10 O2 Sat by Pulse Oximetry (%) 100 11/15/18 21:00 Intake & Output 11/13/18 11/14/18 11/15/18 11/16/18 23:59 23:59 23:59 23:59 Intake Total 700 3915 2006.5 Output Total 450 1950 2600 1000 Balance -450 -1250 1315 1006.5 Weight 147.41 kg 142.201 kg 141.974 kg 138.119 kg NAD awake and alert RRR Dec BS, no rales obese, NT/ND LE in dressing CBC, BMP 11/16/18 05:23 11/16/18 05:23 Current Medications Acetaminophen (Ofirmev Injection -) 1,000 mg IVPB Q6H PRN PRN Reason: PAIN OR FEVER Last Admin: 11/15/18 12:13 Dose: 1,000 mg Albuterol/Ipratropium (Duoneb -) 1 amp NEB Q6H PRN PRN Reason: SHORTNESS OF BREATH Budesonide/Formoterol Fumarate (Symbicort 80/4.5mcg -) 2 puff IH BID LANCE Last Admin: 11/15/18 21:21 Dose: 2 puff Heparin Sodium (Porcine) (Heparin -) 1,000 unit IVPUSH PRN PRN PRN Reason: Heparin Last Admin: 11/15/18 17:27 Dose: 1,000 unit Heparin Sodium (Porcine) (Heparin -) 5,000 unit IVPUSH PRN PRN PRN Reason: Heparin Meropenem 1 gm/ Dextrose 100 mls @ 200 mls/hr IVPB BID LANCE Last Admin: 11/15/18 21:20 Dose: 200 mls/hr Norepinephrine Bitartrate 8, (000 mcg/ Dextrose) 500 mls @ 18.75 mls/hr IV TITR LANCE; Protocol Last Titration: 11/16/18 06:10 Dose: 2 mcg/min, 7.5 mls/hr Sodium Bicarbonate 75 meq/ (Sodium Chloride) 1,075 mls @ 125 mls/hr IV ASDIR LANCE Last Admin: 11/16/18 01:31 Dose: Not Given Heparin Sodium (Porcine) 25, (000 unit/ Sodium Chloride) 500 mls @ 20 mls/hr IV TITR LANCE; Protocol Last Titration: 11/15/18 17:17 Dose: 1,100 unit/hr, 22 mls/hr Insulin Aspart (Novolog Vial Sliding Scale -) 1 vial SQ Q4H LANCE; Protocol Last Admin: 11/16/18 05:44 Dose: 1 units Metoprolol Tartrate (Lopressor -) 25 mg PO DAILY [facility] Last Admin: 11/15/18 12:10 Dose: Not Given Pantoprazole Sodium (Protonix Iv) 40 mg IVPUSH DAILY LANCE Last Admin: 11/15/18 09:45 Dose: 40 mg Polyethylene Glycol (Miralax (For Daily Use) -) 17 gm PO DAILY LANCE Last Admin: 11/15/18 12:10 Dose: Not Given Potassium Phos/Sodium Phos (Phos-Nak Packet -) 1 packet PO TID LANCE Stop: 11/16/18 22:01 53 year old female with pmhx of nova requiring HD, DM, active cellulitis, a-fib, htn, asthma, and bipolar who presents to the ER with hypotension and altered mental status with NOVA. #Acute kidney injury in setting of sepsis #Sepsis/LE wounds #Metabolic acidosis #Septic shock #Anemia #Hypophosphatemia Renal function improving no further indication for dialysis change IVF to LR at 100cc per hour maintain MAP > 65 continue Abx as per ID ICU monitoring Keep MAP > 65 Trend urine output supplement ayanna Terry DO
[2018-11-16] MEDS: LACTATED RINGERS SOLUTION 1,000 ML/1,000 ML INFUS.BAG IV SCH (08:40)
[2018-11-16] MEDS: NAPH,MB-DB/K PH,MBDB POWDER PACKET PO SCH ×3 (08:41→21:13)
[2018-11-16] MEDS ORDERED: DEXTROSE 5%-WATER 100 ML IVPB ONE ×2 (09:43→21:10)
[2018-11-16] MEDS ORDERED: MEROPENEM 1 GM VIAL (RESTRICTED TO ID) IVPB ONE ×2 (09:43→21:10)
[2018-11-16] MEDS ORDERED: PT OWN MED DRAWER 7, Y5N ONE ×2 (09:44→16:09)
[2018-11-16] MEDS: HEPARIN - 25,000 UNIT in SODIUM CHLORIDE 495 ML IV SCH (09:48)
[2018-11-16] MEDS: MEROPENEM 1 GM in DEXTROSE 5%-WATER 100 ML IVPB SCH ×2 (09:48→21:12)
[2018-11-16] MEDS: METOPROLOL TARTRATE 25 MG TABLET (FP) PO SCH (09:48)
[2018-11-16] MEDS: PANTOPRAZOLE SODIUM 40 MG VIAL IVPUSH SCH (09:49)
[2018-11-16] MEDS: POLYETHYLENE GLYCOL 3350 119 GM BTL PO SCH (09:51)
--- NOTE | 2018-11-16 09:57 | PN ---
Teaching Attending Note Name of Resident: Eliu Beckman ATTENDING PHYSICIAN STATEMENT I saw and evaluated the patient. I reviewed the resident's note and discussed the case with the resident. I agree with the resident's findings and plan as documented. SUBJECTIVE: Patient seen and examined in the ICU. Much more awake and alert. NE @ 2 mcq for hemodynamic support. Intake & Output 11/13/18 11/14/18 11/15/18 11/16/18 23:59 23:59 23:59 23:59 Intake Total 700 3915 2006.5 Output Total 450 1950 3300 1000 Balance -450 -7177 578 4202.5 Weight 324 lb 15.734 oz 313 lb 8 oz 313 lb 304 lb 8 oz Last Vital Signs Temp Pulse Resp BP Pulse Ox 99 F 80 26 H 105/82 95 11/16/18 06:00 11/16/18 08:00 11/16/18 09:00 11/16/18 08:00 11/16/18 09:00 Active Medications Acetaminophen (Ofirmev Injection -) 1,000 mg IVPB Q6H PRN PRN Reason: PAIN OR FEVER Last Admin: 11/15/18 12:13 Dose: 1,000 mg Albuterol/Ipratropium (Duoneb -) 1 amp NEB Q6H PRN PRN Reason: SHORTNESS OF BREATH Budesonide/Formoterol Fumarate (Symbicort 80/4.5mcg -) 2 puff IH BID LANCE Last Admin: 11/15/18 21:21 Dose: 2 puff Heparin Sodium (Porcine) (Heparin -) 1,000 unit IVPUSH PRN PRN PRN Reason: Heparin Last Admin: 11/15/18 17:27 Dose: 1,000 unit Heparin Sodium (Porcine) (Heparin -) 5,000 unit IVPUSH PRN PRN PRN Reason: Heparin Last Admin: 11/16/18 08:42 Dose: 5,000 unit Meropenem 1 gm/ Dextrose 100 mls @ 200 mls/hr IVPB BID LANCE Last Admin: 11/15/18 21:20 Dose: 200 mls/hr Norepinephrine Bitartrate 8, (000 mcg/ Dextrose) 500 mls @ 18.75 mls/hr IV TITR LANCE; Protocol Last Titration: 11/16/18 06:10 Dose: 2 mcg/min, 7.5 mls/hr Heparin Sodium (Porcine) 25, (000 unit/ Sodium Chloride) 500 mls @ 20 mls/hr IV TITR [facility]; Protocol Last Titration: 11/16/18 08:37 Dose: 1,250 unit/hr, 25 mls/hr Lactated Ringer's (Lactated Ringers Solution) 1,000 ml in 1,000 mls @ 100 mls/ hr IV ASDIR [facility] Last Admin: 11/16/18 08:40 Dose: 100 mls/hr Insulin Aspart (Novolog Vial Sliding Scale -) 1 vial SQ Q4H [facility]; Protocol Last Admin: 11/16/18 05:44 Dose: 1 units Metoprolol Tartrate (Lopressor -) 25 mg PO DAILY [facility] Last Admin: 11/15/18 12:10 Dose: Not Given Pantoprazole Sodium (Protonix Iv) 40 mg IVPUSH DAILY [facility] Last Admin: 11/15/18 09:45 Dose: 40 mg Polyethylene Glycol (Miralax (For Daily Use) -) 17 gm PO DAILY [facility] Last Admin: 11/15/18 12:10 Dose: Not Given Potassium Phos/Sodium Phos (Phos-Nak Packet -) 1 packet PO TID [facility] Stop: 11/16/18 22:01 Last Admin: 11/16/18 08:41 Dose: 1 packet GENERAL: Awake and alert, Less tachypneic at rest. HEENT: NC/AT, ISAIAH, sclera anicteric NECK: Excessive soft tissues LUNGS: Distant breath sounds, diminished bibasillarly. No wheezes. No accessory muscle use. 2LNC SpO2 95% HEART: Distant cardiac sounds, Irregularly irregular rhythm with normal rate, normal S1 and S2 without murmur ABDOMEN: Soft, obese, nondistended, mild tenderness in RLQ, normoactive BS, no guarding. MUSCULOSKELETAL: No CVA tenderness. EXTREMITIES: 2+ DP pulses, hot, well-perfused. Large erythematous stasis wounds with purulent discharge (R>L) with iodoform and gauze bandage, malodorous PSYCHIATRIC: Cooperative. Good eye contact. Appropriate mood and affect. SKIN: Warm, dry, no rashes, lesions as EXT exam Laboratory Results - last 24 hr 11/14/18 11/15/18 11/15/18 14:50 11:01 16:29 WBC RBC Hgb Hct MCV MCH MCHC RDW Plt Count MPV PTT (Actin FS) Sodium Potassium Chloride Carbon Dioxide Anion Gap BUN Creatinine Est GFR (CKD-EPI)AfAm Est GFR (CKD-EPI)NonAf POC Glucometer 246 276 Random Glucose Calcium Phosphorus Magnesium Total Bilirubin AST ALT Alkaline Phosphatase Total Protein Albumin Hep Bs Antigen Negative Hep Bs Antibody Non reactive Hep B Core Total Ab Negative Hep C Ab Diagnostic <0.1 11/15/18 11/15/18 11/16/18 16:34 20:53 00:29 WBC RBC Hgb Hct MCV MCH MCHC RDW Plt Count MPV PTT (Actin FS) 48.2 H Sodium Potassium Chloride Carbon Dioxide Anion Gap BUN Creatinine Est GFR (CKD-EPI)AfAm Est GFR (CKD-EPI)NonAf POC Glucometer 218 218 Random Glucose Calcium Phosphorus Magnesium Total Bilirubin AST ALT Alkaline Phosphatase Total Protein Albumin Hep Bs Antigen Hep Bs Antibody Hep B Core Total Ab Hep C Ab Diagnostic 11/16/18 11/16/18 11/16/18 01:35 05:23 05:23 WBC 9.2 RBC 3.49 L Hgb 9.8 L Hct 29.2 L MCV 83.7 MCH 28.2 MCHC 33.8 RDW 15.5 Plt Count 188 MPV 10.1 PTT (Actin FS) Sodium 146 H Potassium 3.5 Chloride 111 H Carbon Dioxide 26 Anion Gap 9 BUN 52.6 H Creatinine 1.3 Est GFR (CKD-EPI)AfAm 53.48 Est GFR (CKD-EPI)NonAf 46.15 POC Glucometer 157 Random Glucose 198 H Calcium 7.8 L Phosphorus Magnesium Total Bilirubin 0.4 AST 9 L ALT 23 Alkaline Phosphatase 127 H Total Protein 5.5 L Albumin 2.0 L Hep Bs Antigen Hep Bs Antibody Hep B Core Total Ab Hep C Ab Diagnostic 11/16/18 11/16/18 11/16/18 05:23 05:23 05:43 WBC RBC Hgb Hct MCV MCH MCHC RDW Plt Count MPV PTT (Actin FS) 30.5 Sodium Potassium Chloride Carbon Dioxide Anion Gap BUN Creatinine Est GFR (CKD-EPI)AfAm Est GFR (CKD-EPI)NonAf POC Glucometer 193 Random Glucose Calcium Phosphorus 2.3 L Magnesium 1.7 L Total Bilirubin AST ALT Alkaline Phosphatase Total Protein Albumin Hep Bs Antigen Hep Bs Antibody Hep B Core Total Ab Hep C Ab Diagnostic ASSESSMENT/PLAN: Acute toxic metabolic encephalopathy Polymorphic Ventricular Tachycardia Septic Shock / Sepsis 2/2 to cellulitis; r/o bacteremia Hyperglycemia Acute kidney failure Uremia Metabolic acidosis Hyperkalemia T2DM Morbid obesity HTN Titrate pressors for MAP > 65 Strict I & O Follow CVP IVF for CVP 8 to 12 ABX coverage per ID HD per Renal Follow CXR Glycemic control Requires ICU monitoring for pressors Dr Andre Critical care time spent in reviewing chart, evaluating patient and formulating plan - 36 minutes.
[2018-11-16] MEDS: BUDESONIDE/FORMETEROL FUMARATE 80/4.5 mcg INHALER IH SCH ×2 (10:00→21:13)
--- NOTE | 2018-11-16 11:19 | PN ---
Progress Note, Physician Chief Complaint: ASLEEP, EVENTS AND NOTES REVIEWED DENIES FEVER OR CHILLS TOLERATING MEALS - Current Medication List Current Medications: Active Medications Acetaminophen (Ofirmev Injection -) 1,000 mg IVPB Q6H PRN PRN Reason: PAIN OR FEVER Last Admin: 11/15/18 12:13 Dose: 1,000 mg Albuterol/Ipratropium (Duoneb -) 1 amp NEB Q6H PRN PRN Reason: SHORTNESS OF BREATH Apixaban (Eliquis -) 2.5 mg PO BID [facility] Budesonide/Formoterol Fumarate (Symbicort 80/4.5mcg -) 2 puff IH BID [facility] Last Admin: 11/15/18 21:21 Dose: 2 puff Meropenem 1 gm/ Dextrose 100 mls @ 200 mls/hr IVPB BID [facility] Last Admin: 11/16/18 09:48 Dose: 200 mls/hr Norepinephrine Bitartrate 8, (000 mcg/ Dextrose) 500 mls @ 18.75 mls/hr IV TITR [facility]; Protocol Last Titration: 11/16/18 06:10 Dose: 2 mcg/min, 7.5 mls/hr Lactated Ringer's (Lactated Ringers Solution) 1,000 ml in 1,000 mls @ 100 mls/ hr IV ASDIR [facility] Last Admin: 11/16/18 08:40 Dose: 100 mls/hr Insulin Aspart (Novolog Vial Sliding Scale -) 1 vial SQ Q4H [facility]; Protocol Last Admin: 11/16/18 05:44 Dose: 1 units Metoprolol Tartrate (Lopressor -) 25 mg PO DAILY [facility] Last Admin: 11/16/18 09:48 Dose: 25 mg Nystatin (Mycostatin Cream -) 1 applic TP Q6HPO [facility] Pantoprazole Sodium (Protonix Iv) 40 mg IVPUSH DAILY [facility] Last Admin: 11/16/18 09:49 Dose: 40 mg Polyethylene Glycol (Miralax (For Daily Use) -) 17 gm PO DAILY [facility] Last Admin: 11/16/18 09:51 Dose: 17 grams Potassium Phos/Sodium Phos (Phos-Nak Packet -) 1 packet PO TID [facility] Stop: 11/16/18 22:01 Last Admin: 11/16/18 08:41 Dose: 1 packet - Objective Vital Signs: Vital Signs Temperature 98.7 F 11/16/18 10:00 Pulse Rate 78 11/16/18 10:00 Respiratory Rate 24 H 11/16/18 10:00 Blood Pressure 123/65 11/16/18 10:00 O2 Sat by Pulse Oximetry (%) 95 11/16/18 09:00 Constitutional: Yes: Mild Distress Eyes: Yes: WNL HENT: Yes: WNL Neck: Yes: WNL Cardiovascular: Yes: Pulse Irregular Respiratory: Yes: CTA Bilaterally Gastrointestinal: Yes: Abdomen, Obese Genitourinary: Yes: Johnson Present Musculoskeletal: Yes: Muscle Weakness Extremities: Yes: Deformity Edema: Yes Peripheral Pulses WNL: Yes Integumentary: Yes: Erythema, Pressure Ulcer, Rash, Venous Stasis Changes Wound/Incision: Yes: Dressing Dry and Intact, Excoriated, Unapproximated Neurological: Yes: Pre-Existing Deficit ...Motor Strength: LLE, RLE Psychiatric: Yes: Other Labs: CBC, BMP 11/16/18 05:23 11/16/18 05:23 INR, PTT INR 1.23 (0.83-1.09) H 11/13/18 17:48 Problem List - Problems (1) Toxic metabolic encephalopathy Code(s): G92 - TOXIC ENCEPHALOPATHY (2) ARF (acute renal failure) Code(s): N17.9 - ACUTE KIDNEY FAILURE, UNSPECIFIED (3) Cellulitis Code(s): L03.90 - CELLULITIS, UNSPECIFIED Qualifiers: Site of cellulitis: unspecified site Qualified Code(s): L03.90 - Cellulitis , unspecified (4) Encephalopathy due to metabolic factor or toxin Code(s): [id number] - (5) Hyperglycemia Code(s): R73.9 - HYPERGLYCEMIA, UNSPECIFIED (6) Hyperkalemia Code(s): E87.5 - HYPERKALEMIA (7) Metabolic acidosis Code(s): E87.2 - ACIDOSIS (8) Morbid (severe) obesity due to excess calories Code(s): E66.01 - MORBID (SEVERE) OBESITY DUE TO EXCESS CALORIES (9) Polymorphic ventricular tachycardia Code(s): I47.2 - VENTRICULAR TACHYCARDIA (10) Sepsis Code(s): A41.9 - SEPSIS, UNSPECIFIED ORGANISM Qualifiers: Sepsis type: sepsis due to unspecified organism Qualified Code(s): A41.9 - Sepsis, unspecified organism (11) Ventricular tachyarrhythmia Code(s): I47.2 - VENTRICULAR TACHYCARDIA (12) Afib Code(s): I48.91 - UNSPECIFIED ATRIAL FIBRILLATION Qualifiers: Atrial fibrillation type: paroxysmal Qualified Code(s): I48.0 - Paroxysmal atrial fibrillation (13) Altered mental status Code(s): R41.82 - ALTERED MENTAL STATUS, UNSPECIFIED Assessment/Plan IV BP SUPPORT IV ABX PAIN CONTROL WOUND CARE TO LEGS RENAL F/U OBESITY D/W PATIENT DIET CONTROL TO IMPROVE DM, HTN. LIPIDS, OBESITY NON-COMPLIENT AND HAS NOT FOLLOWED UP REGULARLY IN MY OFFICE.
[2018-11-16] MEDS ORDERED: MAGNESIUM SULF 50% (8.12 MEQ/2 ML-1 GM VIAL) IVPB ONE (12:00)
--- NOTE | 2018-11-16 12:18 | PN ---
Physical Exam: SUBJECTIVE: Patient seen and examined at bedside. No acute events. Low dose pressor support overnight. Status improving. OBJECTIVE: Vital Signs Period Temp Pulse Resp BP Sys/Callahan Pulse Ox Last 24 Hr 98.7 F-99.9 F 54-81 14-26 102-140/48-91 95-100 Gen: comfortable, conversant HEENT: NCAT, EOMI Neck: supple, no jvd Cardio: irregular, normal s1s2, no mrg noted Pulm: limited exam, cta Abd: morbidly obese, soft, nontender Ext: b/l LE dressings cdi Laboratory Results - last 24 hr 11/14/18 11/15/18 11/15/18 14:50 16:29 16:34 WBC RBC Hgb Hct MCV MCH MCHC RDW Plt Count MPV PTT (Actin FS) 48.2 H Sodium Potassium Chloride Carbon Dioxide Anion Gap BUN Creatinine Est GFR (CKD-EPI)AfAm Est GFR (CKD-EPI)NonAf POC Glucometer 276 Random Glucose Calcium Phosphorus Magnesium Total Bilirubin AST ALT Alkaline Phosphatase Total Protein Albumin Hep Bs Antigen Negative Hep Bs Antibody Non reactive Hep B Core Total Ab Negative Hep C Ab Diagnostic <0.1 11/15/18 11/16/18 11/16/18 20:53 00:29 01:35 WBC RBC Hgb Hct MCV MCH MCHC RDW Plt Count MPV PTT (Actin FS) Sodium Potassium Chloride Carbon Dioxide Anion Gap BUN Creatinine Est GFR (CKD-EPI)AfAm Est GFR (CKD-EPI)NonAf POC Glucometer 218 218 157 Random Glucose Calcium Phosphorus Magnesium Total Bilirubin AST ALT Alkaline Phosphatase Total Protein Albumin Hep Bs Antigen Hep Bs Antibody Hep B Core Total Ab Hep C Ab Diagnostic 11/16/18 11/16/18 11/16/18 05:23 05:23 05:23 WBC 9.2 RBC 3.49 L Hgb 9.8 L Hct 29.2 L MCV 83.7 MCH 28.2 MCHC 33.8 RDW 15.5 Plt Count 188 MPV 10.1 PTT (Actin FS) Sodium 146 H Potassium 3.5 Chloride 111 H Carbon Dioxide 26 Anion Gap 9 BUN 52.6 H Creatinine 1.3 Est GFR (CKD-EPI)AfAm 53.48 Est GFR (CKD-EPI)NonAf 46.15 POC Glucometer Random Glucose 198 H Calcium 7.8 L Phosphorus 2.3 L Magnesium 1.7 L Total Bilirubin 0.4 AST 9 L ALT 23 Alkaline Phosphatase 127 H Total Protein 5.5 L Albumin 2.0 L Hep Bs Antigen Hep Bs Antibody Hep B Core Total Ab Hep C Ab Diagnostic 11/16/18 11/16/18 05:23 05:43 WBC RBC Hgb Hct MCV MCH MCHC RDW Plt Count MPV PTT (Actin FS) 30.5 Sodium Potassium Chloride Carbon Dioxide Anion Gap BUN Creatinine Est GFR (CKD-EPI)AfAm Est GFR (CKD-EPI)NonAf POC Glucometer 193 Random Glucose Calcium Phosphorus Magnesium Total Bilirubin AST ALT Alkaline Phosphatase Total Protein Albumin Hep Bs Antigen Hep Bs Antibody Hep B Core Total Ab Hep C Ab Diagnostic Active Medications Generic Name Dose Route Start Last Admin Trade Name Freq PRN Reason Stop Dose Admin Acetaminophen 1,000 mg 11/14/18 19:48 11/15/18 12:13 Ofirmev Injection - IVPB 1,000 mg Q6H PRN Administration PAIN OR FEVER Albuterol/Ipratropium 1 amp 11/13/18 22:58 Duoneb - NEB Q6H PRN SHORTNESS OF BREATH Apixaban 2.5 mg 11/16/18 11:15 Eliquis - PO BID [facility] Budesonide/Formoterol Fumarate 2 puff 11/14/18 10:00 11/15/18 21:21 Symbicort 80/4.5mcg - IH 2 puff BID [facility] Administration Meropenem 1 gm/ Dextrose 100 mls @ 200 mls/hr 11/14/18 22:00 11/16/18 09:48 IVPB 200 mls/hr BID [facility] Administration Norepinephrine Bitartrate 8, 500 mls @ 18.75 mls/hr 11/14/18 13:45 11/16/18 06:10 000 mcg/ Dextrose IV 2 mcg/min TITR [facility] 7.5 mls/hr Titration Protocol 5 MCG/MIN Lactated Ringer's 1,000 ml in 1,000 mls @ 100 mls/hr 11/16/18 08:30 11/16/18 08:40 Lactated Ringers Solution IV 100 mls/hr ASDIR [facility] Administration Insulin Aspart 1 vial 11/14/18 00:45 11/16/18 05:44 Novolog Vial Sliding Scale - SQ 1 units Q4H [facility] Administration Protocol Metoprolol Tartrate 25 mg 11/14/18 10:00 11/16/18 09:48 Lopressor - PO 25 mg DAILY [facility] Administration Nystatin 1 applic 11/16/18 12:00 Mycostatin Cream - TP Q6HPO [facility] Pantoprazole Sodium 40 mg 11/14/18 10:00 11/16/18 09:49 Protonix Iv IVPUSH 40 mg DAILY [facility] Administration Polyethylene Glycol 17 gm 11/14/18 10:00 11/16/18 09:51 Miralax (For Daily Use) - PO 17 grams DAILY [facility] Administration Potassium Phos/Sodium Phos 1 packet 11/16/18 07:30 11/16/18 08:41 Phos-Nak Packet - PO 11/16/18 22:01 1 packet TID [facility] Administration ASSESSMENT/PLAN: 53 y/o female with PMH of HTN, DM, Afib (on eliquis), B/L chronic venous ulcers who who was brought to the ED by her brother with a for altered mental status and lethargy and admitted for likely uremic encephalopathy and torsades siri pointes #Uremic encephalopathy (hx multiple similar episodes) -resolved following HD -BUN improving -monitor bmp #Septic shock 2/2 Cellulitis -initially hypotensive with ams -still on low dose pressor support -b/l LE -on Merropenem #AF -c/w AC -resume eliquis -metoprolol #DM -ISS -hyperglycemic #Torsades siri Pointes -unclear etiology -likely contribution of electrolyte derangement -recent qtc 400 -avoid qtc prolonging agents #Metabolic Acidosis -resolved #hyperkalemia -resolved Visit type - Emergency Visit Emergency Visit: No - New Patient This patient is new to me today: No - Critical Care Critical Care patient: Yes Total Critical Care Time (in minutes): 35 Critical Care Statement: The care of this patient involved high complexity decision making to prevent further life threatening deterioration of the patient 's condition and/or to evaluate & treat vital organ system(s) failure or risk of failure.
[2018-11-16] MEDS: APIXABAN 2.5 MG TABLET PO SCH ×2 (12:24→21:13)
[2018-11-16] MEDS: NYSTATIN 100,000 UNIT/GM TOPICAL CREAM 15 GM TUBE TP SCH ×2 (14:00→17:30)
--- NOTE | 2018-11-16 14:05 | PN ---
Progress Note, Physician History of Present Illness: Pt is alert, without acute distress. Tmax 99.9F, today afebrile. c/o LE pain but without other specific complaints. Tolerating antibiotics. - Current Medication List Current Medications: Active Medications Acetaminophen (Ofirmev Injection -) 1,000 mg IVPB Q6H PRN PRN Reason: PAIN OR FEVER Last Admin: 11/15/18 12:13 Dose: 1,000 mg Albuterol/Ipratropium (Duoneb -) 1 amp NEB Q6H PRN PRN Reason: SHORTNESS OF BREATH Apixaban (Eliquis -) 2.5 mg PO BID [facility] Last Admin: 11/16/18 12:24 Dose: 2.5 mg Budesonide/Formoterol Fumarate (Symbicort 80/4.5mcg -) 2 puff IH BID [facility] Last Admin: 11/15/18 21:21 Dose: 2 puff Meropenem 1 gm/ Dextrose 100 mls @ 200 mls/hr IVPB BID [facility] Last Admin: 11/16/18 09:48 Dose: 200 mls/hr Norepinephrine Bitartrate 8, (000 mcg/ Dextrose) 500 mls @ 18.75 mls/hr IV TITR [facility]; Protocol Last Titration: 11/16/18 11:20 Dose: 0 mcg/min, 0 mls/hr Lactated Ringer's (Lactated Ringers Solution) 1,000 ml in 1,000 mls @ 100 mls/ hr IV ASDIR [facility] Last Admin: 11/16/18 08:40 Dose: 100 mls/hr Insulin Aspart (Novolog Vial Sliding Scale -) 1 vial SQ Q4H [facility]; Protocol Last Admin: 11/16/18 12:23 Dose: 2 units Metoprolol Tartrate (Lopressor -) 25 mg PO DAILY [facility] Last Admin: 11/16/18 09:48 Dose: 25 mg Nystatin (Mycostatin Cream -) 1 applic TP Q6HPO [facility] Pantoprazole Sodium (Protonix Iv) 40 mg IVPUSH DAILY [facility] Last Admin: 11/16/18 09:49 Dose: 40 mg Polyethylene Glycol (Miralax (For Daily Use) -) 17 gm PO DAILY [facility] Last Admin: 11/16/18 09:51 Dose: 17 grams Potassium Phos/Sodium Phos (Phos-Nak Packet -) 1 packet PO TID [facility] Stop: 11/16/18 22:01 Last Admin: 11/16/18 08:41 Dose: 1 packet - Objective Vital Signs: Vital Signs Temperature 98.7 F 11/16/18 10:00 Pulse Rate 76 11/16/18 12:00 Respiratory Rate 22 H 11/16/18 12:00 Blood Pressure 122/72 11/16/18 12:00 O2 Sat by Pulse Oximetry (%) 95 11/16/18 09:00 Constitutional: Yes: No Distress, Calm Cardiovascular: Yes: Regular Rate and Rhythm Respiratory: Yes: Regular Gastrointestinal: Yes: Normal Bowel Sounds, Soft, Abdomen, Obese Genitourinary: Yes: WNL Edema: Yes (b/l LE) Integumentary: Yes: Erythema (legs) Wound/Incision: Yes: Other (b/l LE edema/erythema/mild tenderness, + ulcers with xeroform/gauze) Neurological: Yes: Alert, Oriented Labs: CBC, BMP 11/16/18 05:23 11/16/18 05:23 INR, PTT INR 1.23 (0.83-1.09) H 11/13/18 17:48 Microbiology 11/13/18 17:48 Blood - Peripheral Venous Blood Culture - Preliminary NO GROWTH OBTAINED AFTER 48 HOURS, INCUBATION TO CONTINUE FOR 3 DAYS. 11/13/18 17:48 Blood - Peripheral Venous Blood Culture - Preliminary NO GROWTH OBTAINED AFTER 48 HOURS, INCUBATION TO CONTINUE FOR 3 DAYS. 11/13/18 21:45 Urine - Urine - Catheterized Urine Culture - Final NO GROWTH OBTAINED - ....Imaging Chest X-ray: Report Reviewed Problem List - Problems (1) ARF (acute renal failure) Code(s): N17.9 - ACUTE KIDNEY FAILURE, UNSPECIFIED (2) Cellulitis Code(s): L03.90 - CELLULITIS, UNSPECIFIED Qualifiers: Site of cellulitis: unspecified site Qualified Code(s): L03.90 - Cellulitis , unspecified (3) Encephalopathy due to metabolic factor or toxin Code(s): [id number] - (4) Hyperglycemia Code(s): R73.9 - HYPERGLYCEMIA, UNSPECIFIED (5) Metabolic acidosis Code(s): E87.2 - ACIDOSIS (6) Morbid (severe) obesity due to excess calories Code(s): E66.01 - MORBID (SEVERE) OBESITY DUE TO EXCESS CALORIES (7) Polymorphic ventricular tachycardia Code(s): I47.2 - VENTRICULAR TACHYCARDIA (8) Sepsis Code(s): A41.9 - SEPSIS, UNSPECIFIED ORGANISM Qualifiers: Sepsis type: sepsis due to unspecified organism Qualified Code(s): A41.9 - Sepsis, unspecified organism (9) Afib Code(s): I48.91 - UNSPECIFIED ATRIAL FIBRILLATION Qualifiers: Atrial fibrillation type: paroxysmal Qualified Code(s): I48.0 - Paroxysmal atrial fibrillation (10) DM2 (diabetes mellitus, type 2) Code(s): E11.9 - TYPE 2 DIABETES MELLITUS WITHOUT COMPLICATIONS Qualifiers: Diabetes mellitus fdc insulin use: with terminal system operator use Diabetes mellitus complication detail: with other circulatory complications (11) Fever Code(s): R50.9 - FEVER, UNSPECIFIED (12) HTN (hypertension) Code(s): I10 - ESSENTIAL (PRIMARY) HYPERTENSION (13) Ulcers of both lower extremities Code(s): L97.919 - NON-PRS CHRONIC ULC UNSP PRT OF R LOW LEG W UNSP SEVERITY; L97.929 - NON-PRS CHRONIC ULC UNSP PRT OF L LOW LEG W UNSP SEVERITY Qualifiers: Non-pressure ulcer stage: unspecified non-pressure ulcer stage Qualified Code(s): L97.919 - Non-pressure chronic ulcer of unspecified part of right lower leg with unspecified severity; L97.929 - Non-pressure chronic ulcer of unspecified part of left lower leg with unspecified severity; L97.929 - Non- pressure chronic ulcer of unspecified part of left lower leg with unspecified severity; L97.929 - Non-pressure chronic ulcer of unspecified part of left lower leg with unspecified severity; L97.929 - Non-pressure chronic ulcer of unspecified part of left lower leg with unspecified severity (14) Venous stasis Code(s): I87.8 - OTHER SPECIFIED DISORDERS OF VEINS Assessment/Plan Severe Sepsis - improving B/L LE cellulitis/infected ulcers s/p Acute respiratory failure AFIB DM morbid obesity Renal insufficiency NOVA Fever -- fever resolving, wbc now normal -- remains on NE for hemodynamic support -- continue Meropenem -- continue monitor vitals -- renal function improving cc: 37 min
[2018-11-16] MEDS: NOREPINEPHRINE BITARTRATE 8,000 MCG in DEXTROSE 5%-WATER - 492 ML IV SCH (14:37)
--- NOTE | 2018-11-16 14:41 | PN ---
Progress Note, Physician Chief Complaint: Cardiology FU Telem Afib. rate controlled. Echo normal EF no valulopathy. Mild pulm Htn - Current Medication List Current Medications: Active Medications Acetaminophen (Ofirmev Injection -) 1,000 mg IVPB Q6H PRN PRN Reason: PAIN OR FEVER Last Admin: 11/15/18 12:13 Dose: 1,000 mg Albuterol/Ipratropium (Duoneb -) 1 amp NEB Q6H PRN PRN Reason: SHORTNESS OF BREATH Apixaban (Eliquis -) 2.5 mg PO BID [facility] Last Admin: 11/16/18 12:24 Dose: 2.5 mg Budesonide/Formoterol Fumarate (Symbicort 80/4.5mcg -) 2 puff IH BID [facility] Last Admin: 11/16/18 10:00 Dose: 2 puff Meropenem 1 gm/ Dextrose 100 mls @ 200 mls/hr IVPB BID [facility] Last Admin: 11/16/18 09:48 Dose: 200 mls/hr Norepinephrine Bitartrate 8, (000 mcg/ Dextrose) 500 mls @ 18.75 mls/hr IV TITR [facility]; Protocol Last Admin: 11/16/18 14:37 Dose: Not Given Lactated Ringer's (Lactated Ringers Solution) 1,000 ml in 1,000 mls @ 100 mls/ hr IV ASDIR [facility] Last Admin: 11/16/18 08:40 Dose: 100 mls/hr Insulin Aspart (Novolog Vial Sliding Scale -) 1 vial SQ Q4H [facility]; Protocol Last Admin: 11/16/18 12:23 Dose: 2 units Metoprolol Tartrate (Lopressor -) 25 mg PO DAILY [facility] Last Admin: 11/16/18 09:48 Dose: 25 mg Nystatin (Mycostatin Cream -) 1 applic TP Q6HPO [facility] Pantoprazole Sodium (Protonix Iv) 40 mg IVPUSH DAILY [facility] Last Admin: 11/16/18 09:49 Dose: 40 mg Polyethylene Glycol (Miralax (For Daily Use) -) 17 gm PO DAILY [facility] Last Admin: 11/16/18 09:51 Dose: 17 grams Potassium Phos/Sodium Phos (Phos-Nak Packet -) 1 packet PO TID [facility] Stop: 11/16/18 22:01 Last Admin: 11/16/18 14:37 Dose: 1 packet - Objective Vital Signs: Vital Signs Temperature 98.7 F 11/16/18 10:00 Pulse Rate 76 11/16/18 12:00 Respiratory Rate 22 H 11/16/18 12:00 Blood Pressure 122/72 11/16/18 12:00 O2 Sat by Pulse Oximetry (%) 95 11/16/18 09:00 Constitutional: Yes: Well Nourished, No Distress Eyes: Yes: Conjunctiva Clear HENT: Yes: Atraumatic, Normocephalic Neck: Yes: Supple, Trachea Midline Cardiovascular: Yes: Regular Rate and Rhythm Respiratory: Yes: Regular, CTA Bilaterally Gastrointestinal: Yes: Normal Bowel Sounds Edema: Yes Labs: CBC, BMP 11/16/18 05:23 11/16/18 05:23 INR, PTT INR 1.23 (0.83-1.09) H 11/13/18 17:48 Problem List - Problems (1) Hyperglycemia Code(s): R73.9 - HYPERGLYCEMIA, UNSPECIFIED (2) Metabolic acidosis Code(s): E87.2 - ACIDOSIS (3) Afib Code(s): I48.91 - UNSPECIFIED ATRIAL FIBRILLATION Qualifiers: Atrial fibrillation type: paroxysmal Qualified Code(s): I48.0 - Paroxysmal atrial fibrillation Assessment/Plan HR is controlled in Afib TOlerating Anticoagulation Will sign off.
[2018-11-17] MEDS: NYSTATIN 100,000 UNIT/GM TOPICAL CREAM 15 GM TUBE TP SCH ×5 (00:22→23:45)
[2018-11-17] MEDS: LACTATED RINGERS SOLUTION 1,000 ML/1,000 ML INFUS.BAG IV SCH ×2 (05:30→08:55)
[2018-11-17 05:55] LABS: BASO % 0.4 % (0-2.0); EOS % 5.3 % (0-4.5); HEMOGLOBIN 9.7 GM/dL (10.7-15.3); LYMPH % 8.5 % (8-40); MCH 28.1 pg (25.7-33.7); MCHC 33.5 g/dl (32.0-36.0); MEAN CELL VOLUME 84.1 fl (80-96); MEAN PLT VOLUME 9.7 fl (7.5-11.1); MONO % 7.1 % (3.8-10.2); NEUT % 78.7 % (42.8-82.8); PLATELET COUNT 183 K/MM3 (134-434); RBC 3.45 M/mm3 (3.60-5.2); RDW 15.2 % (11.6-15.6); WHITE BLOOD COUNT 9.3 K/mm3 (4.0-10.0)
[2018-11-17] MEDS: INSULIN SLIDING SCALE (NOVOLOG) 1 VIAL SQ SCH ×4 (06:02→22:41)
[2018-11-17 06:30] LABS: BILIRUBIN,TOTAL 0.8 mg/dL (0.2-1); BLOOD UREA NITROGEN 33.1 mg/dL (7-18); CALCIUM 7.7 mg/dL (8.5-10.1); CREATININE 1.1 mg/dL (0.55-1.3); MAGNESIUM 1.6 mg/dL (1.8-2.4); POTASSIUM 3.6 mmol/L (3.5-5.1); TOT PROT 5.4 g/dl (6.4-8.2)
--- NOTE | 2018-11-17 07:52 | PN ---
Physical Exam: SUBJECTIVE: Patient seen and examined at bedside- no acute events overnight; patient is no longer on levophed - her pressures have remained stable and her mental status is improving- she denies any CP/SOB/N/V OBJECTIVE: Vital Signs Period Temp Pulse Resp BP Sys/Callahan Pulse Ox Last 24 Hr 98.2 F-99.7 F 73-84 20-34 98-154/58-89 95-95 GENERAL: The patient is awake, alert,oriented to self/place/time EYES: PEERLA: EOMI; no scleral icterus NECK: no JVD; no lymphadenopathy. LUNGS: slight wheezes B/L; diminished breath sounds HEART: irregularly irregular, S1, S2 without murmur, rub or gallop. ABDOMEN: Soft, nontender, nondistended, normoactive bowel sounds, no guarding, no rebound, no hepatosplenomegaly, no masses. EXTREMITIES: 2+ pulses, warm, well-perfused, trace edema. NEUROLOGICAL: Cranial nerves II through XII grossly intact. Normal speech, no facial asymmetry; strength 5/5 B/L UE LE sensation intact throughout PSYCH: Normal mood, normal affect. SKIN: Warm, dry, normal turgor, no rashes or lesions noted Laboratory Results - last 24 hr 11/16/18 11/16/18 11/16/18 12:11 17:01 21:32 WBC RBC Hgb Hct MCV MCH MCHC RDW Plt Count MPV Absolute Neuts (auto) Neutrophils % Lymphocytes % Monocytes % Eosinophils % Basophils % Nucleated RBC % PTT (Actin FS) Sodium Potassium Chloride Carbon Dioxide Anion Gap BUN Creatinine Est GFR (CKD-EPI)AfAm Est GFR (CKD-EPI)NonAf POC Glucometer 232 216 208 Random Glucose Hemoglobin A1c % Calcium Phosphorus Magnesium Total Bilirubin AST ALT Alkaline Phosphatase Total Protein Albumin 11/17/18 11/17/18 11/17/18 05:04 05:04 05:04 WBC 9.3 RBC 3.45 L Hgb 9.7 L Hct 29.0 L MCV 84.1 MCH 28.1 MCHC 33.5 RDW 15.2 Plt Count 183 MPV 9.7 Absolute Neuts (auto) 7.3 Neutrophils % 78.7 Lymphocytes % 8.5 D Monocytes % 7.1 Eosinophils % 5.3 H Basophils % 0.4 Nucleated RBC % 0 PTT (Actin FS) 33.1 Sodium 144 Potassium 3.6 Chloride 111 H Carbon Dioxide 27 Anion Gap 6 L BUN 33.1 H Creatinine 1.1 Est GFR (CKD-EPI)AfAm 65.45 Est GFR (CKD-EPI)NonAf 56.47 POC Glucometer Random Glucose 192 H Hemoglobin A1c % Calcium 7.7 L Phosphorus 2.0 L Magnesium 1.6 L Total Bilirubin 0.8 AST 11 L ALT 18 Alkaline Phosphatase 118 H Total Protein 5.4 L Albumin 2.0 L 11/17/18 11/17/18 05:04 06:01 WBC RBC Hgb Hct MCV MCH MCHC RDW Plt Count MPV Absolute Neuts (auto) Neutrophils % Lymphocytes % Monocytes % Eosinophils % Basophils % Nucleated RBC % PTT (Actin FS) Sodium Potassium Chloride Carbon Dioxide Anion Gap BUN Creatinine Est GFR (CKD-EPI)AfAm Est GFR (CKD-EPI)NonAf POC Glucometer 189 Random Glucose Hemoglobin A1c % 11.5 H Calcium Phosphorus Magnesium Total Bilirubin AST ALT Alkaline Phosphatase Total Protein Albumin Active Medications Generic Name Dose Route Start Last Admin Trade Name Freq PRN Reason Stop Dose Admin Acetaminophen 1,000 mg 11/14/18 19:48 11/15/18 12:13 Ofirmev Injection - IVPB 1,000 mg Q6H PRN Administration PAIN OR FEVER Albuterol/Ipratropium 1 amp 11/13/18 22:58 Duoneb - NEB Q6H PRN SHORTNESS OF BREATH Apixaban 2.5 mg 11/16/18 11:15 11/16/18 21:13 Eliquis - PO 2.5 mg BID LANCE Administration Budesonide/Formoterol Fumarate 2 puff 11/14/18 10:00 11/16/18 21:13 Symbicort 80/4.5mcg - IH 2 puff BID LANCE Administration Meropenem 1 gm/ Dextrose 100 mls @ 200 mls/hr 11/14/18 22:00 11/16/18 21:12 IVPB 200 mls/hr BID LANCE Administration Norepinephrine Bitartrate 8, 500 mls @ 18.75 mls/hr 11/14/18 13:45 11/16/18 14:37 000 mcg/ Dextrose IV Not Given TITR LANCE Protocol 5 MCG/MIN Lactated Ringer's 1,000 ml in 1,000 mls @ 100 mls/hr 11/16/18 08:30 11/17/18 05:30 Lactated Ringers Solution IV 100 mls/hr ASDIR LANCE Administration Insulin Aspart 1 vial 11/16/18 17:15 11/17/18 06:02 Novolog Vial Sliding Scale - SQ 1 units ACHS LANCE Administration Protocol Magnesium Oxide 400 mg 11/17/18 07:29 Mag-Ox - PO 11/17/18 07:30 ONCE ONE Metoprolol Tartrate 25 mg 11/14/18 10:00 11/16/18 09:48 Lopressor - PO 25 mg DAILY LANCE Administration Nystatin 1 applic 11/16/18 12:00 11/17/18 06:02 Mycostatin Cream - TP 1 applic Q6HPO LANCE Administration Pantoprazole Sodium 40 mg 11/14/18 10:00 11/16/18 09:49 Protonix Iv IVPUSH 40 mg DAILY LANCE Administration Polyethylene Glycol 17 gm 11/14/18 10:00 11/16/18 09:51 Miralax (For Daily Use) - PO 17 grams DAILY LANCE Administration Potassium Phos/Sodium Phos 1 packet 11/17/18 07:29 Phos-Nak Packet - PO 11/17/18 07:30 ONCE ONE ASSESSMENT/PLAN: 53 y/o female with PMH of HTN, DM, Afib (on eliquis), B/L chronic venous ulcers who who was brought to the ED by her brother with a few day history of altered mental status, lethargy after not having taken her diabetes medications found to be uremic #Neuro patient is no longer having AMS since uremia has since resolved #Cardiovascular patient has not been on levophed in over a day and her MAPS have been in 80's-90 's; she no longer has had anymore episodes of torsades -holding home anti-hypertensives -daily EKG's -avoid QTc prolonging agents -monitor hemodynamics; maintain MAPS >65 -resumed eliquis for Afib #Endocrine patient has history of DM and has been noncompliant with medications for the past few days; on arrival BGM was 345; HbA1c 11 -currently on ISS -monitor BGMS ACHS #ID patient currently on meropenem (day 3) -B/L wound ulcers- dr rizzo on board for wound care -ID on board -blood and urine cx negative #Pulmonary patient is no longer on ventimask -CXR did not show any signs of acute pathology -c/w duonebs and symbicort #Renal patient came in with BUN/CR 178/6.5 and was hyperkalemic to 6.5 -received 2 dialysis sessions and BMP has imporoved - will remove trialsyis catheter as she no longer needs HD F/E/N 1/ NS @125 monitor electrolytes DVT PPX:eliquis GI PPX: protonix dispo: transfer to M/S Problem List - Problems (1) ARF (acute renal failure) Code(s): N17.9 - ACUTE KIDNEY FAILURE, UNSPECIFIED (2) Encephalopathy due to metabolic factor or toxin Code(s): ZBN0695 - (3) Hyperglycemia Code(s): R73.9 - HYPERGLYCEMIA, UNSPECIFIED (4) Hyperkalemia Code(s): E87.5 - HYPERKALEMIA (5) Polymorphic ventricular tachycardia Code(s): I47.2 - VENTRICULAR TACHYCARDIA Visit type - Emergency Visit Emergency Visit: Yes ED Registration Date: 11/13/18 Care time: The patient presented to the Emergency Department on the above date and was hospitalized for further evaluation of their emergent condition. - New Patient This patient is new to me today: No - Critical Care Critical Care patient: Yes Total Critical Care Time (in minutes): 35 Critical Care Statement: The care of this patient involved high complexity decision making to prevent further life threatening deterioration of the patient 's condition and/or to evaluate & treat vital organ system(s) failure or risk of failure.
[2018-11-17] MEDS ORDERED: MAGNESIUM OXIDE 400 MG TABLET (FP) PO ONE (08:15)
[2018-11-17] MEDS ORDERED: NAPH,MB-DB/K PH,MBDB POWDER PACKET PO ONE (08:15)
[2018-11-17] MEDS ORDERED: MEROPENEM 1 GM VIAL (RESTRICTED TO ID) IVPB ONE ×2 (08:53→21:01)
[2018-11-17] MEDS ORDERED: DEXTROSE 5%-WATER 100 ML IVPB ONE ×2 (08:53→21:02)
[2018-11-17] MEDS: METOPROLOL TARTRATE 25 MG TABLET (FP) PO SCH (09:04)
[2018-11-17] MEDS: PANTOPRAZOLE SODIUM 40 MG VIAL IVPUSH SCH (09:04)
[2018-11-17] MEDS: MEROPENEM 1 GM in DEXTROSE 5%-WATER 100 ML IVPB SCH ×2 (09:04→21:47)
[2018-11-17] MEDS: POLYETHYLENE GLYCOL 3350 119 GM BTL PO SCH (09:44)
[2018-11-17] MEDS: APIXABAN 2.5 MG TABLET PO SCH ×2 (09:44→21:47)
[2018-11-17] MEDS: BUDESONIDE/FORMETEROL FUMARATE 80/4.5 mcg INHALER IH SCH ×2 (10:12→22:37)
--- NOTE | 2018-11-17 11:27 | CONSULT ---
- Consultation REQUESTING PROVIDER: CONSULT REQUEST: We have been asked to surgically evaluate this patient for ( venous stasis ulcers). PCP:Onur Maxwell HISTORY OF PRESENT ILLNESS: 53 y/o F w/ PMHx non-compliance, Morbid obesity, B/L LE chronic Venous stasis ulcerations, Chronic Afib on AC, HTN, poorly controlled T2DM, Dyslipedemia, Bipolar disorder, admitted 11/13 with AMS. Vascular consulted for venous stasis ulcers. Pt reports she has had b/l le ulcers for years. Reports they have gotten better since she had a debridement in May [address] Calderon in the OR. Pt states she had a large wound on her Left lateral calf which has improved over the past few months via wound care with granulated sugar. Recently pt has been applying xeroform and kerlix changed daily. Has not seen Dr Calderon since debridement last year. At baseline pt lives home with son/. Ambulates around the house and supermarket via a walker. Is able to complete all adls. Denies fevers/cp/sob, n/ v/d. Reports a remote h/o LE dvt "a few years back", diagnosed and trted at [facility]. PMHx: as above PSHx: appendectomy (Dr Dean, 06/2018) Home Medications Medication Instructions Recorded Budesonide/Formeterol Fumarate 2 puff IH BID inhaler 02/20/17 [SYMBICORT 80/4.5mcg -] Insulin Sliding Scale [Novolog 1 vial SQ ACHS units 02/20/17 Vial Sliding Scale -] Apixaban [Eliquis -] 5 mg PO BID tablet 07/04/17 Pantoprazole Sodium [Protonix -] 40 mg PO DAILY tablet.ec 07/04/17 Enalapril Maleate 2.5 mg PO DAILY 07/15/18 Furosemide 40 mg PO ASDIR 07/15/18 Gabapentin 300 mg PO DAILY 07/15/18 Potassium Chloride 10 meq PO DAILY 07/15/18 Digoxin [Lanoxin -] 0.125 mg PO DAILY #30 tablet 07/22/18 Insulin Glargine,Hum.rec.anlog 300 unit SQ BID #15 insuln.pen 07/22/18 [Toujeo Jensen Solostar] Metoprolol Tartrate [Lopressor -] 25 mg PO DAILY #30 tablet 07/22/18 Polyethylene Glycol 3350 [Miralax 17 gm PO DAILY bottle 07/22/18 119 gm Btl -] hydrOXYzine HCL [Atarax -] 25 mg PO Q6H PRN #30 tablet 07/22/18 traMADol HCL [Ultram -] 50 mg PO Q6H PRN tablet MDD 4 07/22/18 Allergies Allergy/AdvReac Type Severity Reaction Status Date / Time nut - unspecified Allergy Verified 11/13/18 21:32 Penicillins Allergy Verified 11/13/18 21:32 walnut Allergy Verified 11/13/18 21:32 REVIEW OF SYSTEMS: CONSTITUTIONAL: Absent: fever, chills PHYSICAL EXAM: GENERAL: Awake, alert, and fully oriented, in no acute distress. HEAD: Normal with no signs of trauma. LUNGS: Unlabored on RA. LOWER EXTREMITIES: b/l les with 1+ edema, multiple superficial ulcerations by islands of skin RLE >>LLE. All wound bases appear clean with granular tissue present, no erythema, Scant serous drainage. +TTP, Mild erythema over b/l les Vasc: Bounding right dp, left dp with biphasic doppler signal Vital Signs Temperature 97.8 F 11/17/18 10:00 Pulse Rate 83 11/17/18 10:00 Respiratory Rate 28 H 11/17/18 10:00 Blood Pressure 138/73 11/17/18 10:00 O2 Sat by Pulse Oximetry (%) 97 11/17/18 09:00 Lab Results WBC 9.3 K/mm3 (4.0-10.0) 11/17/18 05:04 RBC 3.45 M/mm3 (3.60-5.2) L 11/17/18 05:04 Hgb 9.7 GM/dL (10.7-15.3) L 11/17/18 05:04 Hct 29.0 % (32.4-45.2) L 11/17/18 05:04 MCV 84.1 fl (80-96) 11/17/18 05:04 MCHC 33.5 g/dl (32.0-36.0) 11/17/18 05:04 RDW 15.2 % (11.6-15.6) 11/17/18 05:04 Plt Count 183 K/MM3 (134-434) 11/17/18 05:04 Sodium 144 mmol/L (136-145) 11/17/18 05:04 Potassium 3.6 mmol/L (3.5-5.1) 11/17/18 05:04 Chloride 111 mmol/L (98-107) H 11/17/18 05:04 Carbon Dioxide 27 mmol/L (21-32) 11/17/18 05:04 Anion Gap 6 MMOL/L (8-16) L 11/17/18 05:04 BUN 33.1 mg/dL (7-18) H 11/17/18 05:04 Creatinine 1.1 mg/dL (0.55-1.3) 11/17/18 05:04 Random Glucose 192 mg/dL (74-106) H 11/17/18 05:04 Calcium 7.7 mg/dL (8.5-10.1) L 11/17/18 05:04 INR 1.23 (0.83-1.09) H 11/13/18 17:48 A/P: 53 y/o F w/ PMHx non-compliance, Morbid obesity, B/L LE chronic Venous stasis ulcerations, Chronic Afib on AC, HTN, poorly controlled T2DM, Dyslipedemia, Bipolar disorder, admitted 11/13 with AMS. Vascular consulted for venous stasis ulcers. b/l les with multiple venous stasis ulcers L>>R. Resolving cellulitis -Continue daily dressing changes with xeroform and kerlix -B/L le elevation while at rest -glucose control -abx per ID d/w attending Dr Calderon
--- NOTE | 2018-11-17 12:09 | PN ---
Teaching Attending Note Name of Resident: Nehal Valerio ATTENDING PHYSICIAN STATEMENT I saw and evaluated the patient. I reviewed the resident's note and discussed the case with the resident. I agree with the resident's findings and plan as documented. SUBJECTIVE: Pt seen and examined in the ICU. Not on pressors. Good urine output. OBJECTIVE: Vital Signs Period Temp Pulse Resp BP Sys/Callahan Pulse Ox Last 24 Hr 97.8 F-99.7 F 73-84 20-34 98-154/58-89 95-97 Intake & Output 11/14/18 11/15/18 11/16/18 11/17/18 23:59 23:59 23:59 23:59 Intake Total 700 3915 3849.0 1600 Output Total 1950 3300 2600 1000 Balance -2010 990 7731.0 600 Weight 142.201 kg 141.974 kg 138.119 kg 140.341 kg Gen: NAD at rest Heart: RRR Lung: decreased breath sounds at the bases Abd: soft, nontender Ext: wrapped with drainage CBC, BMP 11/17/18 05:04 11/17/18 05:04 Active Medications Acetaminophen (Ofirmev Injection -) 1,000 mg IVPB Q6H PRN PRN Reason: PAIN OR FEVER Last Admin: 11/15/18 12:13 Dose: 1,000 mg Albuterol/Ipratropium (Duoneb -) 1 amp NEB Q6H PRN PRN Reason: SHORTNESS OF BREATH Last Admin: 11/17/18 07:30 Dose: 1 amp Apixaban (Eliquis -) 2.5 mg PO BID LANCE Last Admin: 11/17/18 09:44 Dose: 2.5 mg Budesonide/Formoterol Fumarate (Symbicort 80/4.5mcg -) 2 puff IH BID LANCE Last Admin: 11/17/18 10:12 Dose: 2 puff Meropenem 1 gm/ Dextrose 100 mls @ 200 mls/hr IVPB BID LANCE Last Admin: 11/17/18 09:04 Dose: 200 mls/hr Norepinephrine Bitartrate 8, (000 mcg/ Dextrose) 500 mls @ 18.75 mls/hr IV TITR LANCE; Protocol Last Admin: 11/16/18 14:37 Dose: Not Given Lactated Ringer's (Lactated Ringers Solution) 1,000 ml in 1,000 mls @ 100 mls/ hr IV ASDIR [facility] Last Admin: 11/17/18 08:55 Dose: 100 mls/hr Insulin Aspart (Novolog Vial Sliding Scale -) 1 vial SQ ACHS [facility]; Protocol Last Admin: 11/17/18 06:02 Dose: 1 units Metoprolol Tartrate (Lopressor -) 25 mg PO DAILY [facility] Last Admin: 11/17/18 09:04 Dose: 25 mg Nystatin (Mycostatin Cream -) 1 applic TP Q6HPO [facility] Last Admin: 11/17/18 06:02 Dose: 1 applic Pantoprazole Sodium (Protonix Iv) 40 mg IVPUSH DAILY [facility] Last Admin: 11/17/18 09:04 Dose: 40 mg Polyethylene Glycol (Miralax (For Daily Use) -) 17 gm PO DAILY [facility] Last Admin: 11/17/18 09:44 Dose: 17 grams ASSESSMENT AND PLAN: Altered Mental Status/Uremic Encephalopathy improved Cellulitis Septic Shock improving Acute Kidney Injury improving Torsades resolved Atrial Fibrillation DM - continue antibiotics - IVF - monitor urine output, creatinine - monitor lytes - rate controlled - continue anticoagulation - remove HD catheter - DVT prophylaxis - can monitor on floor
[2018-11-17] MEDS: BACITRACIN 15 GM TUBE TOPICAL OINTMENT TP SCH ×2 (13:36→22:37)
--- NOTE | 2018-11-17 13:36 | PN ---
Progress Note, Physician History of Present Illness: Pt seen and examined at bedside. She is awake and alert. She denies shortness of breath. She is awake and alert. - Current Medication List Current Medications: Active Medications Acetaminophen (Ofirmev Injection -) 1,000 mg IVPB Q6H PRN PRN Reason: PAIN OR FEVER Last Admin: 11/15/18 12:13 Dose: 1,000 mg Albuterol/Ipratropium (Duoneb -) 1 amp NEB Q6H PRN PRN Reason: SHORTNESS OF BREATH Last Admin: 11/17/18 07:30 Dose: 1 amp Apixaban (Eliquis -) 2.5 mg PO BID [facility] Last Admin: 11/17/18 09:44 Dose: 2.5 mg Bacitracin (Bacitracin -) 1 applic TP BID LANCE Budesonide/Formoterol Fumarate (Symbicort 80/4.5mcg -) 2 puff IH BID [facility] Last Admin: 11/17/18 10:12 Dose: 2 puff Meropenem 1 gm/ Dextrose 100 mls @ 200 mls/hr IVPB BID [facility] Last Admin: 11/17/18 09:04 Dose: 200 mls/hr Lactated Ringer's (Lactated Ringers Solution) 1,000 ml in 1,000 mls @ 100 mls/ hr IV ASDIR [facility] Last Admin: 11/17/18 08:55 Dose: 100 mls/hr Insulin Aspart (Novolog Vial Sliding Scale -) 1 vial SQ ACHS [facility]; Protocol Last Admin: 11/17/18 12:11 Dose: 4 units Metoprolol Tartrate (Lopressor -) 25 mg PO DAILY [facility] Last Admin: 11/17/18 09:04 Dose: 25 mg Nystatin (Mycostatin Cream -) 1 applic TP Q6HPO [facility] Last Admin: 11/17/18 12:11 Dose: 1 applic Pantoprazole Sodium (Protonix -) 40 mg PO DAILY [facility] Polyethylene Glycol (Miralax (For Daily Use) -) 17 gm PO DAILY [facility] Last Admin: 11/17/18 09:44 Dose: 17 grams - Objective Vital Signs: Vital Signs Temperature 97.8 F 11/17/18 10:00 Pulse Rate 83 11/17/18 10:00 Respiratory Rate 28 H 11/17/18 10:00 Blood Pressure 138/73 11/17/18 10:00 O2 Sat by Pulse Oximetry (%) 97 11/17/18 09:00 Constitutional: Yes: Calm Eyes: Yes: Conjunctiva Clear HENT: Yes: Atraumatic Neck: Yes: Supple Cardiovascular: Yes: S1, S2 Respiratory: Yes: CTA Bilaterally Gastrointestinal: Yes: Normal Bowel Sounds, Soft Genitourinary: Yes: WNL Musculoskeletal: Yes: WNL Edema: Yes Edema: LLE: 1+, RLE: 1+ Integumentary: Yes: Venous Stasis Changes Wound/Incision: Yes: Dressing Dry and Intact Neurological: Yes: Oriented Psychiatric: Yes: Oriented Labs: CBC, BMP 11/17/18 05:04 11/17/18 05:04 INR, PTT INR 1.23 (0.83-1.09) H 11/13/18 17:48 Problem List - Problems (1) ARF (acute renal failure) Code(s): N17.9 - ACUTE KIDNEY FAILURE, UNSPECIFIED (2) Cellulitis Code(s): L03.90 - CELLULITIS, UNSPECIFIED Qualifiers: Site of cellulitis: unspecified site Qualified Code(s): L03.90 - Cellulitis , unspecified (3) Encephalopathy due to metabolic factor or toxin Code(s): [id number] - (4) Hyperkalemia Code(s): E87.5 - HYPERKALEMIA (5) Metabolic acidosis Code(s): E87.2 - ACIDOSIS Assessment/Plan Current Medications Generic Name Dose Route Start Last Admin Trade Name Freq PRN Reason Stop Dose Admin Acetaminophen 1,000 mg 11/14/18 19:48 11/15/18 12:13 Ofirmev Injection - IVPB 1,000 mg Q6H PRN Administration PAIN OR FEVER Albuterol/Ipratropium 1 amp 11/13/18 22:58 11/17/18 07:30 Duoneb - NEB 1 amp Q6H PRN Administration SHORTNESS OF BREATH Apixaban 2.5 mg 11/16/18 11:15 11/17/18 09:44 Eliquis - PO 2.5 mg BID LANCE Administration Bacitracin 1 applic 11/17/18 12:15 Bacitracin - TP BID LANCE Budesonide/Formoterol Fumarate 2 puff 11/14/18 10:00 11/17/18 10:12 Symbicort 80/4.5mcg - IH 2 puff BID LANCE Administration Meropenem 1 gm/ Dextrose 100 mls @ 200 mls/hr 11/14/18 22:00 11/17/18 09:04 IVPB 200 mls/hr BID LANCE Administration Lactated Ringer's 1,000 ml in 1,000 mls @ 100 mls/hr 11/16/18 08:30 11/17/18 08:55 Lactated Ringers Solution IV 100 mls/hr ASDIR LANCE Administration Insulin Aspart 1 vial 11/16/18 17:15 11/17/18 12:11 Novolog Vial Sliding Scale - SQ 4 units ACHS LANCE Administration Protocol Metoprolol Tartrate 25 mg 11/14/18 10:00 11/17/18 09:04 Lopressor - PO 25 mg DAILY LANCE Administration Nystatin 1 applic 11/16/18 12:00 11/17/18 12:11 Mycostatin Cream - TP 1 applic Q6HPO LANCE Administration Pantoprazole Sodium 40 mg 11/18/18 10:00 Protonix - PO DAILY LANCE Polyethylene Glycol 17 gm 11/14/18 10:00 11/17/18 09:44 Miralax (For Daily Use) - PO 17 grams DAILY LANCE Administration Laboratory Tests 11/17/18 05:04 Hemoglobin A1c % 11.5 H Impression 1. NOVA 2. hyperkalemia 3. obesity 4. DM 5. a-fib 6. HTN 7. chronic lower extremity ulcers 8. gastritis 9. sepsis 10. hyperglycemia 11. metabolic acidosis Plan - renal function is improved - can d/c shiley - replace lytes - can decrease rate of fluids - discussed with ICU team - a1c is elevated Dr Epstein
[2018-11-17] MEDS ORDERED: LACTATED RINGERS SOLUTION 1,000 ML/1,000 ML INFUS.BAG IV SCH (13:48)
[2018-11-17] MEDS: ACETAMINOPHEN 1000 MG/100 ML VIAL (NON FORMULARY) IVPB PRN (13:54)
[2018-11-17 14:44] VITALS: BMI 51.4
--- NOTE | 2018-11-17 14:48 | PN ---
Progress Note, Physician History of Present Illness: patient stable - Current Medication List Current Medications: Active Medications Acetaminophen (Ofirmev Injection -) 1,000 mg IVPB Q6H PRN PRN Reason: PAIN OR FEVER Last Admin: 11/17/18 13:54 Dose: 1,000 mg Albuterol/Ipratropium (Duoneb -) 1 amp NEB Q6H PRN PRN Reason: SHORTNESS OF BREATH Last Admin: 11/17/18 07:30 Dose: 1 amp Apixaban (Eliquis -) 2.5 mg PO BID [facility] Last Admin: 11/17/18 09:44 Dose: 2.5 mg Bacitracin (Bacitracin -) 1 applic TP BID [facility] Last Admin: 11/17/18 13:36 Dose: 1 applic Budesonide/Formoterol Fumarate (Symbicort 80/4.5mcg -) 2 puff IH BID [facility] Last Admin: 11/17/18 10:12 Dose: 2 puff Meropenem 1 gm/ Dextrose 100 mls @ 200 mls/hr IVPB BID [facility] Last Admin: 11/17/18 09:04 Dose: 200 mls/hr Lactated Ringer's (Lactated Ringers Solution) 1,000 ml in 1,000 mls @ 75 mls/ hr IV ASDIR [facility] Last Admin: 11/17/18 14:13 Dose: 75 mls/hr Insulin Aspart (Novolog Vial Sliding Scale -) 1 vial SQ ACHS [facility]; Protocol Last Admin: 11/17/18 12:11 Dose: 4 units Metoprolol Tartrate (Lopressor -) 25 mg PO DAILY [facility] Last Admin: 11/17/18 09:04 Dose: 25 mg Nystatin (Mycostatin Cream -) 1 applic TP Q6HPO [facility] Last Admin: 11/17/18 12:11 Dose: 1 applic Pantoprazole Sodium (Protonix -) 40 mg PO DAILY [facility] Polyethylene Glycol (Miralax (For Daily Use) -) 17 gm PO DAILY [facility] Last Admin: 11/17/18 09:44 Dose: 17 grams - Objective Vital Signs: Vital Signs Temperature 98.7 F 11/17/18 14:00 Pulse Rate 66 11/17/18 14:00 Respiratory Rate 28 H 11/17/18 14:00 Blood Pressure 134/65 11/17/18 14:00 O2 Sat by Pulse Oximetry (%) 97 11/17/18 09:00 Constitutional: Yes: No Distress, Calm Cardiovascular: Yes: S1, S2 Respiratory: Yes: Regular, CTA Bilaterally Gastrointestinal: Yes: Normal Bowel Sounds, Soft Musculoskeletal: Yes: WNL Extremities: Yes: Other Wound/Incision: Yes: Dressing Dry and Intact Neurological: Yes: Alert, Oriented Psychiatric: Yes: Alert, Oriented Labs: CBC, BMP 11/17/18 05:04 11/17/18 05:04 INR, PTT INR 1.23 (0.83-1.09) H 11/13/18 17:48 Assessment/Plan Problem List - Problems (1) ARF (acute renal failure) Code(s): N17.9 - ACUTE KIDNEY FAILURE, UNSPECIFIED (2) Cellulitis Code(s): L03.90 - CELLULITIS, UNSPECIFIED Qualifiers: Site of cellulitis: unspecified site Qualified Code(s): L03.90 - Cellulitis , unspecified (3) Encephalopathy due to metabolic factor or toxin Code(s): [id number] - (4) Hyperglycemia Code(s): R73.9 - HYPERGLYCEMIA, UNSPECIFIED (5) Metabolic acidosis Code(s): E87.2 - ACIDOSIS (6) Morbid (severe) obesity due to excess calories Code(s): E66.01 - MORBID (SEVERE) OBESITY DUE TO EXCESS CALORIES (7) Polymorphic ventricular tachycardia Code(s): I47.2 - VENTRICULAR TACHYCARDIA (8) Sepsis Code(s): A41.9 - SEPSIS, UNSPECIFIED ORGANISM Qualifiers: Sepsis type: sepsis due to unspecified organism Qualified Code(s): A41.9 - Sepsis, unspecified organism (9) Afib Code(s): I48.91 - UNSPECIFIED ATRIAL FIBRILLATION Qualifiers: Atrial fibrillation type: paroxysmal Qualified Code(s): I48.0 - Paroxysmal atrial fibrillation (10) DM2 (diabetes mellitus, type 2) Code(s): E11.9 - TYPE 2 DIABETES MELLITUS WITHOUT COMPLICATIONS Qualifiers: Diabetes mellitus fdc insulin use: with aquatics coordinator use Diabetes mellitus complication detail: with other circulatory complications (11) Fever Code(s): R50.9 - FEVER, UNSPECIFIED (12) HTN (hypertension) Code(s): I10 - ESSENTIAL (PRIMARY) HYPERTENSION (13) Ulcers of both lower extremities Code(s): L97.919 - NON-PRS CHRONIC ULC UNSP PRT OF R LOW LEG W UNSP SEVERITY; L97.929 - NON-PRS CHRONIC ULC UNSP PRT OF L LOW LEG W UNSP SEVERITY Qualifiers: Non-pressure ulcer stage: unspecified non-pressure ulcer stage Qualified Code(s): L97.919 - Non-pressure chronic ulcer of unspecified part of right lower leg with unspecified severity; L97.929 - Non-pressure chronic ulcer of unspecified part of left lower leg with unspecified severity; L97.929 - Non- pressure chronic ulcer of unspecified part of left lower leg with unspecified severity; L97.929 - Non-pressure chronic ulcer of unspecified part of left lower leg with unspecified severity; L97.929 - Non-pressure chronic ulcer of unspecified part of left lower leg with unspecified severity (14) Venous stasis Code(s): I87.8 - OTHER SPECIFIED DISORDERS OF VEINS Assessment/Plan Severe Sepsis - improving B/L LE cellulitis/infected ulcers s/p Acute respiratory failure AFIB DM morbid obesity Renal insufficiency NOVA Fever plan continue abx wound care as per icu doing well cc 40 min
--- NOTE | 2018-11-17 16:34 | PN ---
Progress Note, Physician Chief Complaint: AWAKE ALERT DENIES CHEST PAIN OR SOB NO FEVER OR CHILLS EVENTS AND NOTES REVIEWED - Current Medication List Current Medications: Active Medications Acetaminophen (Ofirmev Injection -) 1,000 mg IVPB Q6H PRN PRN Reason: PAIN OR FEVER Last Admin: 11/17/18 13:54 Dose: 1,000 mg Albuterol/Ipratropium (Duoneb -) 1 amp NEB Q6H PRN PRN Reason: SHORTNESS OF BREATH Last Admin: 11/17/18 07:30 Dose: 1 amp Apixaban (Eliquis -) 2.5 mg PO BID [facility] Last Admin: 11/17/18 09:44 Dose: 2.5 mg Bacitracin (Bacitracin -) 1 applic TP BID [facility] Last Admin: 11/17/18 13:36 Dose: 1 applic Budesonide/Formoterol Fumarate (Symbicort 80/4.5mcg -) 2 puff IH BID [facility] Last Admin: 11/17/18 10:12 Dose: 2 puff Meropenem 1 gm/ Dextrose 100 mls @ 200 mls/hr IVPB BID [facility] Last Admin: 11/17/18 09:04 Dose: 200 mls/hr Lactated Ringer's (Lactated Ringers Solution) 1,000 ml in 1,000 mls @ 75 mls/ hr IV ASDIR [facility] Last Admin: 11/17/18 14:13 Dose: 75 mls/hr Insulin Aspart (Novolog Vial Sliding Scale -) 1 vial SQ ACHS [facility]; Protocol Last Admin: 11/17/18 12:11 Dose: 4 units Metoprolol Tartrate (Lopressor -) 25 mg PO DAILY [facility] Last Admin: 11/17/18 09:04 Dose: 25 mg Nystatin (Mycostatin Cream -) 1 applic TP Q6HPO [facility] Last Admin: 11/17/18 12:11 Dose: 1 applic Pantoprazole Sodium (Protonix -) 40 mg PO DAILY [facility] Polyethylene Glycol (Miralax (For Daily Use) -) 17 gm PO DAILY [facility] Last Admin: 11/17/18 09:44 Dose: 17 grams - Objective Vital Signs: Vital Signs Temperature 98.7 F 11/17/18 14:00 Pulse Rate 66 11/17/18 14:00 Respiratory Rate 28 H 11/17/18 14:00 Blood Pressure 134/65 11/17/18 14:00 O2 Sat by Pulse Oximetry (%) 97 11/17/18 09:00 Constitutional: Yes: Mild Distress Eyes: Yes: WNL HENT: Yes: WNL Neck: Yes: WNL Cardiovascular: Yes: Regular Rate and Rhythm Respiratory: Yes: WNL Gastrointestinal: Yes: Abdomen, Obese Genitourinary: Yes: Incontinence Musculoskeletal: Yes: Muscle Weakness Extremities: Yes: Deformity Edema: Yes Integumentary: Yes: Pressure Ulcer, Rash Wound/Incision: Yes: Dressing Dry and Intact, Excoriated, Unapproximated Neurological: Yes: Pre-Existing Deficit ...Motor Strength: LLE, RLE Psychiatric: Yes: Other Labs: CBC, BMP 11/17/18 05:04 11/17/18 05:04 INR, PTT INR 1.23 (0.83-1.09) H 11/13/18 17:48 Problem List - Problems (1) Toxic metabolic encephalopathy Code(s): G92 - TOXIC ENCEPHALOPATHY (2) ARF (acute renal failure) Code(s): N17.9 - ACUTE KIDNEY FAILURE, UNSPECIFIED (3) Cellulitis Code(s): L03.90 - CELLULITIS, UNSPECIFIED Qualifiers: Site of cellulitis: unspecified site Qualified Code(s): L03.90 - Cellulitis , unspecified (4) Encephalopathy due to metabolic factor or toxin Code(s): [id number] - (5) Hyperglycemia Code(s): R73.9 - HYPERGLYCEMIA, UNSPECIFIED (6) Hyperkalemia Code(s): E87.5 - HYPERKALEMIA (7) Metabolic acidosis Code(s): E87.2 - ACIDOSIS (8) Morbid (severe) obesity due to excess calories Code(s): E66.01 - MORBID (SEVERE) OBESITY DUE TO EXCESS CALORIES (9) Polymorphic ventricular tachycardia Code(s): I47.2 - VENTRICULAR TACHYCARDIA (10) Sepsis Code(s): A41.9 - SEPSIS, UNSPECIFIED ORGANISM Qualifiers: Sepsis type: sepsis due to unspecified organism Qualified Code(s): A41.9 - Sepsis, unspecified organism (11) Ventricular tachyarrhythmia Code(s): I47.2 - VENTRICULAR TACHYCARDIA (12) Afib Code(s): I48.91 - UNSPECIFIED ATRIAL FIBRILLATION Qualifiers: Atrial fibrillation type: paroxysmal Qualified Code(s): I48.0 - Paroxysmal atrial fibrillation (13) Altered mental status Code(s): R41.82 - ALTERED MENTAL STATUS, UNSPECIFIED Assessment/Plan A1C HIGH ENDOCRINE CONSULT DIETARY CONSULT FOR DM/HTN/RENAL DIET/EDUCATION IV BP SUPPORT CAN STOP TRANSFER MEDSURGE TODAY FROM ICU IV ABX PAIN CONTROL WOUND CARE TO LEGS RENAL F/U OBESITY D/W PATIENT DIET CONTROL TO IMPROVE DM, HTN. LIPIDS, OBESITY NON-COMPLIANT AND HAS NOT FOLLOWED UP REGULARLY IN MY OFFICE.
[2018-11-17] MEDS ORDERED: ALBUTEROL SO4 2.5/IPRATROPIUM 0.5 INH SOL 3 ML VIAL.NEB. NEB PRN (21:10)
[2018-11-17] MEDS ORDERED: ACETAMINOPHEN 1000 MG/100 ML VIAL (NON FORMULARY) IVPB PRN (21:10)
[2018-11-18] MEDS: NYSTATIN 100,000 UNIT/GM TOPICAL CREAM 15 GM TUBE TP SCH ×3 (05:58→17:04)
[2018-11-18] MEDS: INSULIN SLIDING SCALE (NOVOLOG) 1 VIAL SQ SCH ×4 (06:03→22:22)
[2018-11-18] MEDS ORDERED: ACETAMINOPHEN 325 MG TABLET (FP) PO PRN (07:37)
--- NOTE | 2018-11-18 07:43 | PN ---
Progress Note, Physician Chief Complaint: AWAKE ALERT C/O ITCHING ALL NIGHT GENERALIZED NO FEVER NO CHILLS DENIES CP/SOB - Current Medication List Current Medications: Active Medications Acetaminophen (Tylenol -) 650 mg PO Q6H PRN PRN Reason: PAIN OR FEVER Albuterol/Ipratropium (Duoneb -) 1 amp NEB Q6H PRN PRN Reason: SHORTNESS OF BREATH Apixaban (Eliquis -) 2.5 mg PO BID [facility] Last Admin: 11/17/18 21:47 Dose: 2.5 mg Bacitracin (Bacitracin -) 1 applic TP BID [facility] Last Admin: 11/17/18 22:37 Dose: 1 applic Budesonide/Formoterol Fumarate (Symbicort 80/4.5mcg -) 2 puff IH BID [facility] Last Admin: 11/17/18 22:37 Dose: 2 puff Meropenem 1 gm/ Dextrose 100 mls @ 200 mls/hr IVPB BID [facility] Last Admin: 11/17/18 21:47 Dose: 200 mls/hr Insulin Aspart (Novolog Vial Sliding Scale -) 1 vial SQ ACHS [facility]; Protocol Last Admin: 11/18/18 06:03 Dose: 1 units Metoprolol Tartrate (Lopressor -) 25 mg PO DAILY [facility] Nystatin (Mycostatin Cream -) 1 applic TP Q6HPO [facility] Last Admin: 11/18/18 05:58 Dose: 1 applic Pantoprazole Sodium (Protonix -) 40 mg PO DAILY [facility] Polyethylene Glycol (Miralax (For Daily Use) -) 17 gm PO DAILY [facility] - Objective Vital Signs: Vital Signs Temperature 98.7 F 11/18/18 06:00 Pulse Rate 86 11/18/18 06:00 Respiratory Rate 22 H 11/18/18 06:00 Blood Pressure 125/78 11/18/18 06:00 O2 Sat by Pulse Oximetry (%) 97 11/17/18 21:00 Constitutional: Yes: Mild Distress Eyes: Yes: WNL HENT: Yes: WNL Neck: Yes: WNL Cardiovascular: Yes: Regular Rate and Rhythm Respiratory: Yes: On Nasal O2, Poor Air Entry Gastrointestinal: Yes: Soft, Abdomen, Obese Genitourinary: Yes: WNL Musculoskeletal: Yes: Muscle Weakness Extremities: Yes: Deformity Edema: Yes Integumentary: Yes: Rash, Skin Tear Wound/Incision: Yes: Dressing Dry and Intact, Draining, Reddened, Unapproximated Neurological: Yes: Pre-Existing Deficit ...Motor Strength: LLE, RLE (MULTIPLE SKIN ULCERS STAGE 2-3, PURELENT DISCHARGE AND BLOOD) Psychiatric: Yes: Other Labs: CBC, BMP 11/17/18 05:04 11/17/18 05:04 INR, PTT INR 1.23 (0.83-1.09) H 11/13/18 17:48 Problem List - Problems (1) Toxic metabolic encephalopathy Code(s): G92 - TOXIC ENCEPHALOPATHY (2) ARF (acute renal failure) Code(s): N17.9 - ACUTE KIDNEY FAILURE, UNSPECIFIED (3) Cellulitis Code(s): L03.90 - CELLULITIS, UNSPECIFIED Qualifiers: Site of cellulitis: unspecified site Qualified Code(s): L03.90 - Cellulitis , unspecified (4) Encephalopathy due to metabolic factor or toxin Code(s): [id number] - (5) Hyperglycemia Code(s): R73.9 - HYPERGLYCEMIA, UNSPECIFIED (6) Hyperkalemia Code(s): E87.5 - HYPERKALEMIA (7) Metabolic acidosis Code(s): E87.2 - ACIDOSIS (8) Morbid (severe) obesity due to excess calories Code(s): E66.01 - MORBID (SEVERE) OBESITY DUE TO EXCESS CALORIES (9) Polymorphic ventricular tachycardia Code(s): I47.2 - VENTRICULAR TACHYCARDIA (10) Sepsis Code(s): A41.9 - SEPSIS, UNSPECIFIED ORGANISM Qualifiers: Sepsis type: sepsis due to unspecified organism Qualified Code(s): A41.9 - Sepsis, unspecified organism (11) Ventricular tachyarrhythmia Code(s): I47.2 - VENTRICULAR TACHYCARDIA (12) Afib Code(s): I48.91 - UNSPECIFIED ATRIAL FIBRILLATION Qualifiers: Atrial fibrillation type: paroxysmal Qualified Code(s): I48.0 - Paroxysmal atrial fibrillation (13) Altered mental status Code(s): R41.82 - ALTERED MENTAL STATUS, UNSPECIFIED (14) Drug rash Code(s): L27.0 - GEN SKIN ERUPTION DUE TO DRUGS AND MEDS TAKEN INTERNALLY Assessment/Plan VASC SURGERY EVAL LEG ULCERS BENADRYL PRN WILL NEED ID F/U ON ABX POSSIBLY CHANGE TO PO STOP IVF, ENCOURAGED PO INTAKE A1C HIGH ENDOCRINE CONSULT DIETARY CONSULT FOR DM/HTN/RENAL DIET/EDUCATION IV ABX PAIN CONTROL WOUND CARE TO LEGS RENAL F/U OBESITY D/W PATIENT DIET CONTROL TO IMPROVE DM, HTN. LIPIDS, OBESITY NON-COMPLIANT AND HAS NOT FOLLOWED UP REGULARLY IN MY OFFICE.
[2018-11-18 08:28] LABS: HEMATOCRIT 32.2 % (32.4-45.2); HEMOGLOBIN 10.5 GM/dL (10.7-15.3); MCH 27.8 pg (25.7-33.7); MCHC 32.7 g/dl (32.0-36.0); MEAN CELL VOLUME 84.9 fl (80-96); MEAN PLT VOLUME 9.2 fl (7.5-11.1); RBC 3.79 M/mm3 (3.60-5.2); RDW 14.9 % (11.6-15.6); WHITE BLOOD COUNT 10.9 K/mm3 (4.0-10.0)
[2018-11-18 08:37] LABS: BLOOD UREA NITROGEN 19.6 mg/dL (7-18); CREATININE 0.9 mg/dL (0.55-1.3); MAGNESIUM 1.7 mg/dL (1.8-2.4); PHOSPHOROUS 1.6 mg/dL (2.5-4.9); POTASSIUM 3.5 mmol/L (3.5-5.1)
[2018-11-18 09:02] LABS: PLATELET COUNT 211 K/MM3 (134-434)
[2018-11-18] MEDS ORDERED: DEXTROSE 5%-WATER 100 ML IVPB ONE ×2 (09:14→21:12)
[2018-11-18] MEDS ORDERED: MEROPENEM 1 GM VIAL (RESTRICTED TO ID) IVPB ONE ×2 (09:14→21:11)
[2018-11-18] MEDS: PANTOPRAZOLE 40 MG TABLET (FP) PO SCH (09:43)
[2018-11-18] MEDS: METOPROLOL TARTRATE 25 MG TABLET (FP) PO SCH (09:43)
[2018-11-18] MEDS: APIXABAN 2.5 MG TABLET PO SCH ×2 (09:43→22:20)
[2018-11-18] MEDS: MEROPENEM 1 GM in DEXTROSE 5%-WATER 100 ML IVPB SCH ×2 (09:44→22:19)
[2018-11-18] MEDS: BUDESONIDE/FORMETEROL FUMARATE 80/4.5 mcg INHALER IH SCH ×2 (09:45→22:22)
[2018-11-18] MEDS: POLYETHYLENE GLYCOL 3350 119 GM BTL PO SCH (09:45)
[2018-11-18] MEDS: BACITRACIN 15 GM TUBE TOPICAL OINTMENT TP SCH ×2 (09:47→22:20)
--- NOTE | 2018-11-18 10:09 | PN ---
Progress Note (short form) - Note Progress Note: Overall appears better. No CP or SOB. Reports itching. Intake & Output 11/15/18 11/16/18 11/17/18 11/18/18 23:59 23:59 23:59 23:59 Intake Total 3915 3849.0 3485 600 Output Total 3300 2600 1900 Balance 615 1249.0 1585 600 Weight 313 lb 304 lb 8 oz 309 lb 6.4 oz 308 lb Last Vital Signs Temp Pulse Resp BP Pulse Ox 98.7 F 86 22 H 125/78 97 11/18/18 06:00 11/18/18 06:00 11/18/18 06:00 11/18/18 06:00 11/17/18 21:00 Active Medications Acetaminophen (Tylenol -) 650 mg PO Q6H PRN PRN Reason: FEVER Albuterol/Ipratropium (Duoneb -) 1 amp NEB Q6H PRN PRN Reason: SHORTNESS OF BREATH Apixaban (Eliquis -) 2.5 mg PO BID [facility] Last Admin: 11/18/18 09:43 Dose: 2.5 mg Bacitracin (Bacitracin -) 1 applic TP BID [facility] Last Admin: 11/18/18 09:47 Dose: 1 applic Budesonide/Formoterol Fumarate (Symbicort 80/4.5mcg -) 2 puff IH BID [facility] Last Admin: 11/18/18 09:45 Dose: 2 puff Diphenhydramine HCl (Benadryl -) 25 mg PO Q6H PRN PRN Reason: FOR ITCHING Meropenem 1 gm/ Dextrose 100 mls @ 200 mls/hr IVPB BID [facility] Last Admin: 11/18/18 09:44 Dose: 200 mls/hr Insulin Aspart (Novolog Vial Sliding Scale -) 1 vial SQ ACHS [facility]; Protocol Last Admin: 11/18/18 06:03 Dose: 1 units Metoprolol Tartrate (Lopressor -) 25 mg PO DAILY [facility] Last Admin: 11/18/18 09:43 Dose: 25 mg Nystatin (Mycostatin Cream -) 1 applic TP Q6HPO [facility] Last Admin: 11/18/18 05:58 Dose: 1 applic Pantoprazole Sodium (Protonix -) 40 mg PO DAILY [facility] Last Admin: 11/18/18 09:43 Dose: 40 mg Polyethylene Glycol (Miralax (For Daily Use) -) 17 gm PO DAILY [facility] Last Admin: 11/18/18 09:45 Dose: 17 gm Zinc Acetate/Diphenhydramine (Benadryl 2% Cream) 1 applic TP DAILY [facility] Last Admin: 11/18/18 09:44 Dose: 1 applic GENERAL: Awake and alert, NAD HEENT: NC/AT, ISAIAH, sclera anicteric NECK: Excessive soft tissues LUNGS: Distant breath sounds, diminished at the bases. No wheezes. No accessory muscle use. HEART: Distant cardiac sounds, Irregularly irregular rhythm with normal rate, normal S1 and S2 without murmur ABDOMEN: Soft, obese, nondistended, mild tenderness in RLQ, normoactive BS, no guarding. MUSCULOSKELETAL: No CVA tenderness. EXTREMITIES: 2+ DP pulses, Large stasis wounds PSYCHIATRIC: Cooperative. Good eye contact. Appropriate mood and affect. SKIN: Warm, dry, no rashes, lesions as EXT exam Laboratory Results - last 24 hr 11/17/18 11/17/18 11/17/18 12:05 16:29 22:40 WBC RBC Hgb Hct MCV MCH MCHC RDW Plt Count MPV Sodium Potassium Chloride Carbon Dioxide Anion Gap BUN Creatinine Est GFR (CKD-EPI)AfAm Est GFR (CKD-EPI)NonAf POC Glucometer 283 225 208 Random Glucose Calcium Phosphorus Magnesium 11/18/18 11/18/18 11/18/18 05:48 07:51 07:51 WBC 10.9 H RBC 3.79 Hgb 10.5 L Hct 32.2 L MCV 84.9 MCH 27.8 MCHC 32.7 RDW 14.9 Plt Count 211 MPV 9.2 Sodium 145 Potassium 3.5 Chloride 113 H Carbon Dioxide 26 Anion Gap 6 L BUN 19.6 H Creatinine 0.9 Est GFR (CKD-EPI)AfAm 83.43 Est GFR (CKD-EPI)NonAf 71.98 POC Glucometer 190 Random Glucose 184 H Calcium 8.0 L Phosphorus 1.6 L Magnesium 1.7 L ASSESSMENT/PLAN: Resolved Acute toxic metabolic encephalopathy Polymorphic Ventricular Tachycardia Septic Shock / Sepsis 2/2 to cellulitis; r/o bacteremia Hyperglycemia Acute kidney failure Uremia Metabolic acidosis Hyperkalemia T2DM Morbid obesity HTN ABX per ID Local wound care Off HD per Renal Glycemic control O2 as needed Dr Andre
--- NOTE | 2018-11-18 11:41 | PN ---
Progress Note, Physician History of Present Illness: continues to improve c/o itching - Current Medication List Current Medications: Active Medications Acetaminophen (Tylenol -) 650 mg PO Q6H PRN PRN Reason: FEVER Albuterol/Ipratropium (Duoneb -) 1 amp NEB Q6H PRN PRN Reason: SHORTNESS OF BREATH Apixaban (Eliquis -) 2.5 mg PO BID [facility] Last Admin: 11/18/18 09:43 Dose: 2.5 mg Bacitracin (Bacitracin -) 1 applic TP BID [facility] Last Admin: 11/18/18 09:47 Dose: 1 applic Budesonide/Formoterol Fumarate (Symbicort 80/4.5mcg -) 2 puff IH BID [facility] Last Admin: 11/18/18 09:45 Dose: 2 puff Diphenhydramine HCl (Benadryl -) 25 mg PO Q6H PRN PRN Reason: FOR ITCHING Meropenem 1 gm/ Dextrose 100 mls @ 200 mls/hr IVPB BID [facility] Last Admin: 11/18/18 09:44 Dose: 200 mls/hr Insulin Aspart (Novolog Vial Sliding Scale -) 1 vial SQ ACHS [facility]; Protocol Last Admin: 11/18/18 06:03 Dose: 1 units Metoprolol Tartrate (Lopressor -) 25 mg PO DAILY [facility] Last Admin: 11/18/18 09:43 Dose: 25 mg Nystatin (Mycostatin Cream -) 1 applic TP Q6HPO [facility] Last Admin: 11/18/18 05:58 Dose: 1 applic Pantoprazole Sodium (Protonix -) 40 mg PO DAILY [facility] Last Admin: 11/18/18 09:43 Dose: 40 mg Polyethylene Glycol (Miralax (For Daily Use) -) 17 gm PO DAILY [facility] Last Admin: 11/18/18 09:45 Dose: 17 gm Zinc Acetate/Diphenhydramine (Benadryl 2% Cream) 1 applic TP DAILY [facility] Last Admin: 11/18/18 09:44 Dose: 1 applic - Objective Vital Signs: Vital Signs Temperature 98.7 F 11/18/18 06:00 Pulse Rate 86 11/18/18 06:00 Respiratory Rate 18 11/18/18 09:00 Blood Pressure 125/78 11/18/18 06:00 O2 Sat by Pulse Oximetry (%) 97 11/18/18 09:00 Constitutional: Yes: Calm, Mild Distress, Obese Cardiovascular: Yes: S1, S2 Respiratory: Yes: Regular, Poor Air Entry (bases) Gastrointestinal: Yes: Normal Bowel Sounds, Soft Extremities: Yes: Other Wound/Incision: Yes: Dressing Dry and Intact Neurological: Yes: Alert, Oriented Psychiatric: Yes: Alert, Oriented Labs: CBC, BMP 11/18/18 07:51 11/18/18 07:51 INR, PTT INR 1.23 (0.83-1.09) H 11/13/18 17:48 Assessment/Plan Problem List - Problems (1) ARF (acute renal failure) Code(s): N17.9 - ACUTE KIDNEY FAILURE, UNSPECIFIED (2) Cellulitis Code(s): L03.90 - CELLULITIS, UNSPECIFIED Qualifiers: Site of cellulitis: unspecified site Qualified Code(s): L03.90 - Cellulitis , unspecified (3) Encephalopathy due to metabolic factor or toxin Code(s): [id number] - (4) Hyperglycemia Code(s): R73.9 - HYPERGLYCEMIA, UNSPECIFIED (5) Metabolic acidosis Code(s): E87.2 - ACIDOSIS (6) Morbid (severe) obesity due to excess calories Code(s): E66.01 - MORBID (SEVERE) OBESITY DUE TO EXCESS CALORIES (7) Polymorphic ventricular tachycardia Code(s): I47.2 - VENTRICULAR TACHYCARDIA (8) Sepsis Code(s): A41.9 - SEPSIS, UNSPECIFIED ORGANISM Qualifiers: Sepsis type: sepsis due to unspecified organism Qualified Code(s): A41.9 - Sepsis, unspecified organism (9) Afib Code(s): I48.91 - UNSPECIFIED ATRIAL FIBRILLATION Qualifiers: Atrial fibrillation type: paroxysmal Qualified Code(s): I48.0 - Paroxysmal atrial fibrillation (10) DM2 (diabetes mellitus, type 2) Code(s): E11.9 - TYPE 2 DIABETES MELLITUS WITHOUT COMPLICATIONS Qualifiers: 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: with ferry terminal 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 use Diabetes mellitus complication detail: with other circulatory complications (11) Fever Code(s): R50.9 - FEVER, UNSPECIFIED (12) HTN (hypertension) Code(s): I10 - ESSENTIAL (PRIMARY) HYPERTENSION (13) Ulcers of both lower extremities Code(s): L97.919 - NON-PRS CHRONIC ULC UNSP PRT OF R LOW LEG W UNSP SEVERITY; L97.929 - NON-PRS CHRONIC ULC UNSP PRT OF L LOW LEG W UNSP SEVERITY Qualifiers: Non-pressure ulcer stage: unspecified non-pressure ulcer stage Qualified Code(s): L97.919 - Non-pressure chronic ulcer of unspecified part of right lower leg with unspecified severity; L97.929 - Non-pressure chronic ulcer of unspecified part of left lower leg with unspecified severity; L97.929 - Non- pressure chronic ulcer of unspecified part of left lower leg with unspecified severity; L97.929 - Non-pressure chronic ulcer of unspecified part of left lower leg with unspecified severity; L97.929 - Non-pressure chronic ulcer of unspecified part of left lower leg with unspecified severity (14) Venous stasis Code(s): I87.8 - OTHER SPECIFIED DISORDERS OF VEINS Assessment/Plan Severe Sepsis - improving B/L LE cellulitis/infected ulcers s/p Acute respiratory failure AFIB DM morbid obesity Renal insufficiency NOVA Fever plan continue abx wound care physio out of bed
[2018-11-18] MEDS: diphenhydrAMINE HCL 25 MG CAPSULE (FP) PO PRN (18:50)
[2018-11-18] MEDS ORDERED: MAGNESIUM OXIDE 400 MG TABLET (FP) PO ONE (19:06)
[2018-11-18] MEDS ORDERED: diphenhydrAMINE HCL 25 MG CAPSULE (FP) PO ONE (19:07)
--- NOTE | 2018-11-18 19:10 | PN ---
Progress Note, Physician History of Present Illness: Pt seen and examined at bedside. She is awake and alert. She denies shortness of breath. - Current Medication List Current Medications: Active Medications Acetaminophen (Tylenol -) 650 mg PO Q6H PRN PRN Reason: FEVER Albuterol/Ipratropium (Duoneb -) 1 amp NEB Q6H PRN PRN Reason: SHORTNESS OF BREATH Apixaban (Eliquis -) 2.5 mg PO BID [facility] Last Admin: 11/18/18 09:43 Dose: 2.5 mg Bacitracin (Bacitracin -) 1 applic TP BID [facility] Last Admin: 11/18/18 09:47 Dose: 1 applic Budesonide/Formoterol Fumarate (Symbicort 80/4.5mcg -) 2 puff IH BID [facility] Last Admin: 11/18/18 09:45 Dose: 2 puff Diphenhydramine HCl (Benadryl -) 25 mg PO Q6H PRN PRN Reason: FOR ITCHING Last Admin: 11/18/18 18:50 Dose: 25 mg Meropenem 1 gm/ Dextrose 100 mls @ 200 mls/hr IVPB BID [facility] Last Admin: 11/18/18 09:44 Dose: 200 mls/hr Insulin Aspart (Novolog Vial Sliding Scale -) 1 vial SQ ACHS [facility]; Protocol Last Admin: 11/18/18 17:03 Dose: 4 units Magnesium Oxide (Mag-Ox -) 800 mg PO ONCE ONE Stop: 11/18/18 19:07 Metoprolol Tartrate (Lopressor -) 25 mg PO DAILY [facility] Last Admin: 11/18/18 09:43 Dose: 25 mg Nystatin (Mycostatin Cream -) 1 applic TP Q6HPO [facility] Last Admin: 11/18/18 17:04 Dose: 1 applic Pantoprazole Sodium (Protonix -) 40 mg PO DAILY [facility] Last Admin: 11/18/18 09:43 Dose: 40 mg Polyethylene Glycol (Miralax (For Daily Use) -) 17 gm PO DAILY [facility] Last Admin: 11/18/18 09:45 Dose: 17 gm Zinc Acetate/Diphenhydramine (Benadryl 2% Cream) 1 applic TP DAILY [facility] Last Admin: 11/18/18 09:44 Dose: 1 applic - Objective Vital Signs: Vital Signs Temperature 98 F 11/18/18 14:00 Pulse Rate 98 H 11/18/18 14:00 Respiratory Rate 20 11/18/18 14:00 Blood Pressure 134/78 11/18/18 14:00 O2 Sat by Pulse Oximetry (%) 97 11/18/18 09:00 Constitutional: Yes: Calm HENT: Yes: Atraumatic Cardiovascular: Yes: S1, S2 Respiratory: Yes: CTA Bilaterally Gastrointestinal: Yes: Soft, Abdomen, Obese Genitourinary: Yes: WNL Musculoskeletal: Yes: WNL Extremities: Yes: WNL Edema: Yes Edema: LLE: 1+, RLE: 1+ Integumentary: Yes: Venous Stasis Changes Wound/Incision: Yes: Dressing Dry and Intact Neurological: Yes: Oriented Psychiatric: Yes: Oriented Labs: CBC, BMP 11/18/18 07:51 11/18/18 07:51 INR, PTT INR 1.23 (0.83-1.09) H 11/13/18 17:48 Problem List - Problems (1) ARF (acute renal failure) Code(s): N17.9 - ACUTE KIDNEY FAILURE, UNSPECIFIED (2) Cellulitis Code(s): L03.90 - CELLULITIS, UNSPECIFIED Qualifiers: Site of cellulitis: unspecified site Qualified Code(s): L03.90 - Cellulitis , unspecified (3) Encephalopathy due to metabolic factor or toxin Code(s): [id number] - (4) Hyperkalemia Code(s): E87.5 - HYPERKALEMIA (5) Metabolic acidosis Code(s): E87.2 - ACIDOSIS Assessment/Plan Current Medications Generic Name Dose Route Start Last Admin Trade Name Freq PRN Reason Stop Dose Admin Acetaminophen 650 mg 11/18/18 07:37 Tylenol - PO Q6H PRN FEVER Albuterol/Ipratropium 1 amp 11/17/18 21:10 Duoneb - NEB Q6H PRN SHORTNESS OF BREATH Apixaban 2.5 mg 11/17/18 22:00 11/18/18 09:43 Eliquis - PO 2.5 mg BID [facility] Administration Bacitracin 1 applic 11/17/18 12:15 11/18/18 09:47 Bacitracin - TP 1 applic BID [facility] Administration Budesonide/Formoterol Fumarate 2 puff 11/17/18 22:00 11/18/18 09:45 Symbicort 80/4.5mcg - [facility] 2 puff BID [facility] Administration Diphenhydramine HCl 25 mg 11/18/18 07:44 11/18/18 18:50 Benadryl - PO 25 mg Q6H PRN Administration FOR ITCHING Diphenhydramine HCl 25 mg 11/18/18 19:07 Benadryl - PO 11/18/18 19:08 ONCE ONE Meropenem 1 gm/ Dextrose 100 mls @ 200 mls/hr 11/17/18 22:00 11/18/18 09:44 IVPB 200 mls/hr BID [facility] Administration Insulin Aspart 1 vial 11/17/18 22:00 11/18/18 17:03 Novolog Vial Sliding Scale - SQ 4 units ACHS [facility] Administration Protocol Magnesium Oxide 800 mg 11/18/18 19:06 Mag-Ox - PO 11/18/18 19:07 ONCE ONE Metoprolol Tartrate 25 mg 11/18/18 10:00 11/18/18 09:43 Lopressor - PO 25 mg DAILY [facility] Administration Nystatin 1 applic 11/18/18 00:00 11/18/18 17:04 Mycostatin Cream - TP 1 applic Q6HPO [facility] Administration Pantoprazole Sodium 40 mg 11/18/18 10:00 11/18/18 09:43 Protonix - PO 40 mg DAILY [facility] Administration Polyethylene Glycol 17 gm 11/18/18 10:00 11/18/18 09:45 Miralax (For Daily Use) - PO 17 gm DAILY [facility] Administration Potassium Phos/Sodium Phos 1 packet 11/18/18 19:06 Phos-Nak Packet - PO 11/19/18 14:01 TID [facility] Zinc Acetate/Diphenhydramine 1 applic 11/18/18 10:00 11/18/18 09:44 Benadryl 2% Cream TP 1 applic DAILY [facility] Administration Impression 1. NOVA 2. hyperkalemia 3. obesity 4. DM 5. a-fib 6. HTN 7. chronic lower extremity ulcers 8. gastritis 9. sepsis 10. hyperglycemia 11. metabolic acidosis Plan - renal function has stabilized - no need for further HD - replace mag and phos - monitor lytes - can d/c fluids Dr Epstein
[2018-11-18] MEDS: NAPH,MB-DB/K PH,MBDB POWDER PACKET PO SCH ×2 (20:09→22:20)
--- NOTE | 2018-11-18 23:23 | CONSULT ---
Consult Consult Specialty:: endocrine Referred by:: dr.ammir jackson Reason for Consultation:: diabetes mellitus hyperglycemia - History of Present Illness Chief Complaint: high sugars History of Present Illness: 53 yrs female , multiple Co-morbidities, DM2,non compliant , H/O Morbid obesity , B/L LE chronic Venous stasis ulceration, Chronic Afib on AC, HTN, poorly controlled T2DM, Dyslipedemia, Bipolar , previously admitted in 2018 has resolved,admitted with sepsis dehydration and hyperglycemia. has had difficulty controlling blood sugars despite insulin doses.she denies nausea vomiting or hypoglycemia.r - Past Medical History Cardio/Vascular: Yes: AFIB, CHF, HTN Pulmonary: Yes: Asthma Gastrointestinal: Yes: Other (gallstones) Hepatobiliary: Yes: Cholelithiasis (passed without surgery), Other (fatty liver) Renal/: Yes: Renal Inusuff ...: No Infectious Disease: Yes: Other (LE cellulitis) Psych: Yes: Bipolar Endocrine: Yes: Diabetes Mellitus Dermatology: Yes: Cellulitis (b/l LE with ulcerations) Additional Medical History: obesity - Alcohol/Substance Use Hx Alcohol Use: No History of Substance Use: reports: Prescription (narcotics) - Smoking History Smoking history: Former smoker Have you smoked in the past 12 months: No Aproximately how many cigarettes per day: 0 If you are a former smoker, when did you quit?: quit age 13 - Social History Usual Living Arrangement: Alone ADL: Independent 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 History of Recent Travel: No Home Medications - Allergies Allergies/Adverse Reactions: Allergies Allergy/AdvReac Type Severity Reaction Status Date / Time nut - unspecified Allergy Verified 11/13/18 21:32 Penicillins Allergy Verified 11/13/18 21:32 walnut Allergy Verified 11/13/18 21:32 - Home Medications Home Medications: Ambulatory Orders Budesonide/Formeterol Fumarate [SYMBICORT 80/4.5mcg -] 2 puff IH BID inhaler Insulin Sliding Scale [Novolog Vial Sliding Scale -] 1 vial SQ ACHS units 02/20 Apixaban [Eliquis -] 5 mg PO BID tablet 07/04/17 Pantoprazole Sodium [Protonix -] 40 mg PO DAILY tablet.ec 07/04/17 Enalapril Maleate 2.5 mg PO DAILY 07/15/18 Furosemide 40 mg PO ASDIR 07/15/18 Gabapentin 300 mg PO DAILY 07/15/18 Potassium Chloride 10 meq PO DAILY 07/15/18 Digoxin [Lanoxin -] 0.125 mg PO DAILY #30 tablet 07/22/18 Insulin Glargine,Hum.rec.anlog [Isabel Styles Solostar] 300 unit SQ BID #15 insuln.pen 07/22/18 Metoprolol Tartrate [Lopressor -] 25 mg PO DAILY #30 tablet 07/22/18 Polyethylene Glycol 3350 [Miralax 119 gm Btl -] 17 gm PO DAILY bottle 07/22/18 hydrOXYzine HCL [Atarax -] 25 mg PO Q6H PRN #30 tablet 07/22/18 traMADol HCL [Ultram -] 50 mg PO Q6H PRN tablet MDD 4 07/22/18 Family Disease History - Family Disease History Family Disease History: Other: Father ( age 50 CVA), Mother ( 82 ), Brother (stomach cancer), Sister (breast cancer) Review of Systems - Review of Systems Constitutional: reports: Lethargy, Weakness Eyes: reports: No Symptoms HENT: reports: No Symptoms Neck: reports: No Symptoms Cardiovascular: reports: Edema, Shortness of Breath Respiratory: reports: Exercise Intolerance, SOB on Exertion Gastrointestinal: reports: Bloating Genitourinary: reports: No Symptoms Breasts: reports: No Symptoms Reported Musculoskeletal: reports: Joint Pain, Joint Swelling, Muscle Pain, Muscle Cramps , Muscle Weakness Neurological: reports: Numbness, Weakness Endocrine: reports: Unexplained Weight Gain Physical Exam Vital Signs: Vital Signs Temperature 98.6 F 11/18/18 18:00 Pulse Rate 78 11/18/18 18:00 Respiratory Rate 20 11/18/18 18:00 Blood Pressure 130/70 11/18/18 18:00 O2 Sat by Pulse Oximetry (%) 97 11/18/18 09:00 Constitutional: Yes: Calm Eyes: Yes: EOM Intact HENT: Yes: Normocephalic Neck: Yes: Trachea Midline Cardiovascular: Yes: Tachycardia Respiratory: Yes: CTA Bilaterally Gastrointestinal: Yes: Normal Bowel Sounds ...Rectal Exam: Yes: Deferred Renal/: Yes: WNL Musculoskeletal: Yes: Back Pain, Joint Swelling, Muscle Pain, Muscle Weakness Extremities: Yes: Erythema Edema: Yes Integumentary: Yes: Venous Stasis Changes Wound/Incision: Yes: Reddened Neurological: Yes: Alert, Oriented Labs: CBC, BMP 11/18/18 07:51 11/18/18 07:51 Problem List - Problems (1) ARF (acute renal failure) Code(s): N17.9 - ACUTE KIDNEY FAILURE, UNSPECIFIED (2) Cellulitis Code(s): L03.90 - CELLULITIS, UNSPECIFIED Qualifiers: Site of cellulitis: unspecified site Qualified Code(s): L03.90 - Cellulitis , unspecified (3) Encephalopathy due to metabolic factor or toxin Code(s): [id number] - (4) Hyperglycemia Code(s): R73.9 - HYPERGLYCEMIA, UNSPECIFIED (5) Hyperkalemia Code(s): E87.5 - HYPERKALEMIA (6) Metabolic acidosis Code(s): E87.2 - ACIDOSIS (7) Morbid (severe) obesity due to excess calories Code(s): E66.01 - MORBID (SEVERE) OBESITY DUE TO EXCESS CALORIES Assessment/Plan Current Active Problems DIABETES MELLITUS 2 HYPERGLYCEMIA ARF (acute renal failure) (Acute) Cellulitis (Acute) Drug rash (Acute) Encephalopathy due to metabolic factor or toxin (Acute) Hyperglycemia (Acute) Hyperkalemia (Acute) Metabolic acidosis (Acute) Morbid (severe) obesity due to excess calories (Acute) Polymorphic ventricular tachycardia (Acute) Renal failure (Acute) Sepsis (Acute) Toxic metabolic encephalopathy (Acute) Ventricular tachyarrhythmia (Acute) Abnormal Lab Results 11/18/18 11/18/18 07:51 07:51 WBC 10.9 H Hgb 10.5 L Hct 32.2 L Chloride 113 H Anion Gap 6 L BUN 19.6 H Random Glucose 184 H Calcium 8.0 L Phosphorus 1.6 L Magnesium 1.7 L Laboratory Results - last 24 hr 11/14/18 11/18/18 11/18/18 14:50 05:48 07:51 WBC 10.9 H RBC 3.79 Hgb 10.5 L Hct 32.2 L MCV 84.9 MCH 27.8 MCHC 32.7 RDW 14.9 Plt Count 211 MPV 9.2 PTT (Actin FS) Sodium Potassium Chloride Carbon Dioxide Anion Gap BUN Creatinine Est GFR (CKD-EPI)AfAm Est GFR (CKD-EPI)NonAf POC Glucometer 190 Random Glucose Calcium Phosphorus Magnesium Hepatitis A Ab Total Negative 11/18/18 11/18/18 11/18/18 07:51 07:51 11:58 WBC RBC Hgb Hct MCV MCH MCHC RDW Plt Count MPV PTT (Actin FS) 30.9 Sodium 145 Potassium 3.5 Chloride 113 H Carbon Dioxide 26 Anion Gap 6 L BUN 19.6 H Creatinine 0.9 Est GFR (CKD-EPI)AfAm 83.43 Est GFR (CKD-EPI)NonAf 71.98 POC Glucometer 291 Random Glucose 184 H Calcium 8.0 L Phosphorus 1.6 L Magnesium 1.7 L Hepatitis A Ab Total 11/18/18 11/18/18 17:01 21:02 WBC RBC Hgb Hct MCV MCH MCHC RDW Plt Count MPV PTT (Actin FS) Sodium Potassium Chloride Carbon Dioxide Anion Gap BUN Creatinine Est GFR (CKD-EPI)AfAm Est GFR (CKD-EPI)NonAf POC Glucometer 235 211 Random Glucose Calcium Phosphorus Magnesium Hepatitis A Ab Total PLAN: BGM QID NOVOLOG SCALE LEVEMIR DOSES 20 UNITS BID NUTRITION CONSULT
[2018-11-19] MEDS: NYSTATIN 100,000 UNIT/GM TOPICAL CREAM 15 GM TUBE TP SCH ×4 (02:40→18:40)
[2018-11-19] MEDS: diphenhydrAMINE HCL 25 MG CAPSULE (FP) PO PRN ×2 (04:05→10:50)
[2018-11-19] MEDS ORDERED: methylPREDNISolone NA SUCC 40 MG/1 ML VIAL IVPUSH ONE (04:21)
[2018-11-19] MEDS ORDERED: FAMOTIDINE 20 MG/50 ML IVPB 20 MG/50 ML MG IVPB ONE (04:23)
--- NOTE | 2018-11-19 04:28 | HOSP ---
Subjective - Review of Symptoms Events since last encounter: Hospitalist Encounter Notified by RN that the patient reports increased itching, hives and redness to her entire body. Arrived to bedside, patient is asleep but arousable, and oriented. Patient reports worsening pruritus with new symptoms of hives. Patient denies dysphagia, SOB PE- see EMR Assessment: This is a 53 y/o woman with multiple CO-morbidities, DM2,non compliant, H/O Morbid obesity, B/L LE chronic Venous stasis ulceration, Chronic Afib on AC, HTN , poorly controlled T2DM, Dyslipedemia, Bipolar. Admitted for Sepsis, Bilateral LE Cellulitis, AMS, Ventricula Tachycardia. Currently on Meropenem, followed by ID Plan: Benadryl 25mg po Solumdererol 40mg IV Pepcid 20mg IV Icepack prn Monitor vitals Other Systems: Integumentary: Pruritus, Erythema, Uticaria Physical Examination Vital Signs: Vital Signs Temperature 98.6 F 11/18/18 18:00 Pulse Rate 78 11/18/18 18:00 Respiratory Rate 20 11/18/18 18:00 Blood Pressure 130/70 11/18/18 18:00 O2 Sat by Pulse Oximetry (%) 97 11/18/18 21:00 Constitutional: Yes: Well Nourished, Anxious, Mild Distress, Obese Eyes: Yes: Conjunctiva Clear, EOM Intact, PERRL HENT: Yes: WNL, Atraumatic, Normocephalic Neck: Yes: WNL, Supple, Trachea Midline Cardiovascular: Yes: Pulse Irregular, S1, S2 Respiratory: Yes: Diminished, On Nasal O2 Gastrointestinal: Yes: Soft, Abdomen, Obese, Other (uticaria left side of abdomen macular erythematous blotches to right side of abdomen) Edema: Yes Edema: LLE: 1+, RLE: 1+ Integumentary: Yes: Venous Stasis Changes Wound/Incision: Yes: Other (bandages to B/L LE) Neurological: Yes: WNL, Alert, Oriented ...Motor Strength: WNL Psychiatric: Yes: WNL, Alert, Oriented Labs: CBC, BMP 11/18/18 07:51 11/18/18 07:51 Laboratory Results - last 24 hr 11/14/18 11/18/18 11/18/18 14:50 05:48 07:51 WBC 10.9 H RBC 3.79 Hgb 10.5 L Hct 32.2 L MCV 84.9 MCH 27.8 MCHC 32.7 RDW 14.9 Plt Count 211 MPV 9.2 PTT (Actin FS) Sodium Potassium Chloride Carbon Dioxide Anion Gap BUN Creatinine Est GFR (CKD-EPI)AfAm Est GFR (CKD-EPI)NonAf POC Glucometer 190 Random Glucose Calcium Phosphorus Magnesium Stool Occult Blood Hepatitis A Ab Total Negative 11/18/18 11/18/18 11/18/18 07:51 07:51 11:58 WBC RBC Hgb Hct MCV MCH MCHC RDW Plt Count MPV PTT (Actin FS) 30.9 Sodium 145 Potassium 3.5 Chloride 113 H Carbon Dioxide 26 Anion Gap 6 L BUN 19.6 H Creatinine 0.9 Est GFR (CKD-EPI)AfAm 83.43 Est GFR (CKD-EPI)NonAf 71.98 POC Glucometer 291 Random Glucose 184 H Calcium 8.0 L Phosphorus 1.6 L Magnesium 1.7 L Stool Occult Blood Hepatitis A Ab Total 11/18/18 11/18/18 11/18/18 17:01 21:02 22:30 WBC RBC Hgb Hct MCV MCH MCHC RDW Plt Count MPV PTT (Actin FS) Sodium Potassium Chloride Carbon Dioxide Anion Gap BUN Creatinine Est GFR (CKD-EPI)AfAm Est GFR (CKD-EPI)NonAf POC Glucometer 235 211 Random Glucose Calcium Phosphorus Magnesium Stool Occult Blood Negative Hepatitis A Ab Total Intake & Output 11/16/18 11/17/18 11/18/18 11/19/18 23:59 23:59 23:59 23:59 Intake Total 3849.0 3485 2049 Output Total 2600 1900 Balance 1249.0 1585 2049 Weight 138.119 kg 140.341 kg 139.706 kg Current Medications Generic Name Dose Route Start Last Admin Trade Name Freq PRN Reason Stop Dose Admin Acetaminophen 650 mg 11/18/18 07:37 Tylenol - PO Q6H PRN FEVER Albuterol/Ipratropium 1 amp 11/17/18 21:10 Duoneb - NEB Q6H PRN SHORTNESS OF BREATH Apixaban 2.5 mg 11/17/18 22:00 11/18/18 22:20 Eliquis - PO 2.5 mg BID LANCE Administration Bacitracin 1 applic 11/17/18 12:15 06/25/19 22:20 Bacitracin - TP 1 applic BID LANCE Administration Budesonide/Formoterol Fumarate 2 puff 11/17/18 22:00 11/18/18 22:22 Symbicort 80/4.5mcg - IH 2 puff BID LANCE Administration Diphenhydramine HCl 25 mg 11/18/18 07:44 11/19/18 04:05 Benadryl - PO 25 mg Q6H PRN Administration FOR ITCHING Meropenem 1 gm/ Dextrose 100 mls @ 200 mls/hr 11/17/18 22:00 11/18/18 22:19 IVPB 200 mls/hr BID LANCE Administration Famotidine/Sodium Chloride 20 mg in 50 mls @ 100 mls/hr 11/19/18 04:23 Pepcid 20 Mg Premixed Ivpb - IVPB 11/19/18 04:52 ONCE ONE Insulin Aspart 1 vial 11/17/18 22:00 11/18/18 22:22 Novolog Vial Sliding Scale - SQ 2 units ACHS LANCE Administration Protocol Insulin Detemir 20 units 11/19/18 10:00 Levemir Vial SQ BID [facility] Methylprednisolone Sodium Succinate 40 mg 11/19/18 04:21 Solu-Medrol - IVPUSH 11/19/18 04:22 ONCE ONE Metoprolol Tartrate 25 mg 11/18/18 10:00 11/18/18 09:43 Lopressor - PO 25 mg DAILY LANCE Administration Nystatin 1 applic 11/18/18 00:00 11/19/18 02:40 Mycostatin Cream - TP 1 applic Q6HPO LANCE Administration Pantoprazole Sodium 40 mg 11/18/18 10:00 11/18/18 09:43 Protonix - PO 40 mg DAILY LANCE Administration Polyethylene Glycol 17 gm 11/18/18 10:00 11/18/18 09:45 Miralax (For Daily Use) - PO 17 gm DAILY LANCE Administration Potassium Phos/Sodium Phos 1 packet 11/18/18 19:06 11/18/18 22:20 Phos-Nak Packet - PO 11/19/18 14:01 1 packet TID LANCE Administration Zinc Acetate/Diphenhydramine 1 applic 11/18/18 10:00 11/18/18 09:44 Benadryl 2% Cream TP 1 applic DAILY LANCE Administration
[2018-11-19 06:29] LABS: HEMATOCRIT 32.2 % (32.4-45.2); HEMOGLOBIN 10.5 GM/dL (10.7-15.3); MCH 27.8 pg (25.7-33.7); MCHC 32.7 g/dl (32.0-36.0); MEAN CELL VOLUME 85.2 fl (80-96); PLATELET COUNT 218 K/MM3 (134-434); RBC 3.78 M/mm3 (3.60-5.2); RDW 14.9 % (11.6-15.6)
[2018-11-19] MEDS: NAPH,MB-DB/K PH,MBDB POWDER PACKET PO SCH ×2 (06:34→14:06)
[2018-11-19] MEDS: INSULIN SLIDING SCALE (NOVOLOG) 1 VIAL SQ SCH ×4 (06:47→22:01)
--- NOTE | 2018-11-19 10:13 | PN ---
Progress Note, Physician Chief Complaint: AWAKE ALERT FEELING BETTER DENIES FEVER/CHILLS NORMAL BM - Current Medication List Current Medications: Active Medications Acetaminophen (Tylenol -) 650 mg PO Q6H PRN PRN Reason: FEVER Albuterol/Ipratropium (Duoneb -) 1 amp NEB Q6H PRN PRN Reason: SHORTNESS OF BREATH Apixaban (Eliquis -) 2.5 mg PO BID [facility] Last Admin: 11/18/18 22:20 Dose: 2.5 mg Bacitracin (Bacitracin -) 1 applic TP BID [facility] Last Admin: 11/18/18 22:20 Dose: 1 applic Budesonide/Formoterol Fumarate (Symbicort 80/4.5mcg -) 2 puff IH BID [facility] Last Admin: 11/18/18 22:22 Dose: 2 puff Diphenhydramine HCl (Benadryl -) 25 mg PO Q6H PRN PRN Reason: FOR ITCHING Last Admin: 11/19/18 04:05 Dose: 25 mg Meropenem 1 gm/ Dextrose 100 mls @ 200 mls/hr IVPB BID [facility] Last Admin: 11/18/18 22:19 Dose: 200 mls/hr Insulin Aspart (Novolog Vial Sliding Scale -) 1 vial SQ ACHS [facility]; Protocol Last Admin: 11/19/18 06:47 Dose: 2 units Insulin Detemir (Levemir Vial) 20 units SQ BID [facility] Magnesium Oxide (Mag-Ox -) 400 mg PO BID [facility] Metoprolol Tartrate (Lopressor -) 25 mg PO DAILY [facility] Last Admin: 11/18/18 09:43 Dose: 25 mg Nystatin (Mycostatin Cream -) 1 applic TP Q6HPO [facility] Last Admin: 11/19/18 06:35 Dose: 1 applic Pantoprazole Sodium (Protonix -) 40 mg PO DAILY [facility] Last Admin: 11/18/18 09:43 Dose: 40 mg Polyethylene Glycol (Miralax (For Daily Use) -) 17 gm PO DAILY [facility] Last Admin: 11/18/18 09:45 Dose: 17 gm Potassium Phos/Sodium Phos (Phos-Nak Packet -) 1 packet PO TID [facility] Stop: 11/19/18 14:01 Last Admin: 11/19/18 06:34 Dose: 1 packet Zinc Acetate/Diphenhydramine (Benadryl 2% Cream) 1 applic TP DAILY [facility] Last Admin: 11/18/18 09:44 Dose: 1 applic - Objective Vital Signs: Vital Signs Temperature 98.8 F 11/19/18 07:33 Pulse Rate 80 11/19/18 07:33 Respiratory Rate 20 11/19/18 07:33 Blood Pressure 128/84 11/19/18 07:33 O2 Sat by Pulse Oximetry (%) 97 11/18/18 21:00 Constitutional: Yes: Mild Distress Eyes: Yes: WNL HENT: Yes: WNL Neck: Yes: WNL Cardiovascular: Yes: WNL Respiratory: Yes: CTA Bilaterally, On Nasal O2 Gastrointestinal: Yes: Abdomen, Obese Genitourinary: Yes: WNL Musculoskeletal: Yes: Muscle Pain, Muscle Weakness Edema: Yes Integumentary: Yes: Pressure Ulcer, Rash Wound/Incision: Yes: Sutures Removed, Draining, Reddened, Excoriated, Unapproximated Neurological: Yes: Pre-Existing Deficit, Unsteady Gait, Weakness ...Motor Strength: LLE, RLE Psychiatric: Yes: Other Labs: CBC, BMP 11/19/18 05:18 11/18/18 07:51 INR, PTT INR 1.23 (0.83-1.09) H 11/13/18 17:48 Problem List - Problems (1) Toxic metabolic encephalopathy Code(s): G92 - TOXIC ENCEPHALOPATHY (2) ARF (acute renal failure) Code(s): N17.9 - ACUTE KIDNEY FAILURE, UNSPECIFIED (3) Cellulitis Code(s): L03.90 - CELLULITIS, UNSPECIFIED Qualifiers: Site of cellulitis: unspecified site Qualified Code(s): L03.90 - Cellulitis , unspecified (4) Encephalopathy due to metabolic factor or toxin Code(s): [id number] - (5) Hyperglycemia Code(s): R73.9 - HYPERGLYCEMIA, UNSPECIFIED (6) Hyperkalemia Code(s): E87.5 - HYPERKALEMIA (7) Metabolic acidosis Code(s): E87.2 - ACIDOSIS (8) Morbid (severe) obesity due to excess calories Code(s): E66.01 - MORBID (SEVERE) OBESITY DUE TO EXCESS CALORIES (9) Polymorphic ventricular tachycardia Code(s): I47.2 - VENTRICULAR TACHYCARDIA (10) Sepsis Code(s): A41.9 - SEPSIS, UNSPECIFIED ORGANISM Qualifiers: Sepsis type: sepsis due to unspecified organism Qualified Code(s): A41.9 - Sepsis, unspecified organism (11) Ventricular tachyarrhythmia Code(s): I47.2 - VENTRICULAR TACHYCARDIA (12) Afib Code(s): I48.91 - UNSPECIFIED ATRIAL FIBRILLATION Qualifiers: Atrial fibrillation type: paroxysmal Qualified Code(s): I48.0 - Paroxysmal atrial fibrillation (13) Altered mental status Code(s): R41.82 - ALTERED MENTAL STATUS, UNSPECIFIED (14) Drug rash Code(s): L27.0 - GEN SKIN ERUPTION DUE TO DRUGS AND MEDS TAKEN INTERNALLY Assessment/Plan VASC SURGERY EVAL LEG ULCERS APPRECIATED BENADRYL PRN FOR ALLERGHIC RASH WILL NEED ID F/U ON ABX POSSIBLY CHANGE TO PO STOP IVF, ENCOURAGED PO INTAKE A1C HIGH ENDOCRINE CONSULT DIETARY CONSULT FOR DM/HTN/RENAL DIET/EDUCATION IV ABX PAIN CONTROL WOUND CARE TO LEGS RENAL F/U OBESITY D/W PATIENT DIET CONTROL TO IMPROVE DM, HTN. LIPIDS, OBESITY NON-COMPLIANT AND HAS NOT FOLLOWED UP REGULARLY IN MY OFFICE.
[2018-11-19] MEDS ORDERED: MEROPENEM 1 GM VIAL (RESTRICTED TO ID) IVPB ONE ×2 (10:28→21:39)
[2018-11-19] MEDS ORDERED: PT OWN MED DRAWER 7, Y5N ONE (10:28)
[2018-11-19] MEDS ORDERED: DEXTROSE 5%-WATER 100 ML IVPB ONE ×2 (10:28→21:39)
[2018-11-19] MEDS: APIXABAN 2.5 MG TABLET PO SCH ×2 (10:38→21:47)
[2018-11-19] MEDS: METOPROLOL TARTRATE 25 MG TABLET (FP) PO SCH (10:38)
[2018-11-19] MEDS: PANTOPRAZOLE 40 MG TABLET (FP) PO SCH (10:38)
[2018-11-19] MEDS: POLYETHYLENE GLYCOL 3350 119 GM BTL PO SCH (10:38)
[2018-11-19] MEDS: BUDESONIDE/FORMETEROL FUMARATE 80/4.5 mcg INHALER IH SCH ×2 (10:39→21:50)
[2018-11-19] MEDS: INSULIN (LEVEMIR) 100 UNITS/ML UNITS SQ SCH ×2 (10:51→21:49)
[2018-11-19] MEDS: MEROPENEM 1 GM in DEXTROSE 5%-WATER 100 ML IVPB SCH ×2 (11:11→21:48)
--- NOTE | 2018-11-19 12:06 | PN ---
Progress Note, Physician History of Present Illness: continues to improve c/o itching - Current Medication List Current Medications: Active Medications Acetaminophen (Tylenol -) 650 mg PO Q6H PRN PRN Reason: FEVER Albuterol/Ipratropium (Duoneb -) 1 amp NEB Q6H PRN PRN Reason: SHORTNESS OF BREATH Apixaban (Eliquis -) 2.5 mg PO BID [facility] Last Admin: 11/19/18 10:38 Dose: 2.5 mg Bacitracin (Bacitracin -) 1 applic TP BID [facility] Last Admin: 11/18/18 22:20 Dose: 1 applic Budesonide/Formoterol Fumarate (Symbicort 80/4.5mcg -) 2 puff IH BID [facility] Last Admin: 11/19/18 10:39 Dose: 2 puff Diphenhydramine HCl (Benadryl -) 25 mg PO Q6H PRN PRN Reason: FOR ITCHING Last Admin: 11/19/18 10:50 Dose: 25 mg Meropenem 1 gm/ Dextrose 100 mls @ 200 mls/hr IVPB BID [facility] Last Admin: 11/19/18 11:11 Dose: 200 mls/hr Insulin Aspart (Novolog Vial Sliding Scale -) 1 vial SQ ACHS [facility]; Protocol Last Admin: 11/19/18 11:42 Dose: 8 units Insulin Detemir (Levemir Vial) 20 units SQ BID [facility] Last Admin: 11/19/18 10:51 Dose: 20 units Magnesium Oxide (Mag-Ox -) 400 mg PO BID [facility] Metoprolol Tartrate (Lopressor -) 25 mg PO DAILY [facility] Last Admin: 11/19/18 10:38 Dose: 25 mg Nystatin (Mycostatin Cream -) 1 applic TP Q6HPO [facility] Last Admin: 11/19/18 11:46 Dose: 1 applic Pantoprazole Sodium (Protonix -) 40 mg PO DAILY [facility] Last Admin: 11/19/18 10:38 Dose: 40 mg Polyethylene Glycol (Miralax (For Daily Use) -) 17 gm PO DAILY [facility] Last Admin: 11/19/18 10:38 Dose: Not Given Potassium Phos/Sodium Phos (Phos-Nak Packet -) 1 packet PO TID [facility] Stop: 11/19/18 14:01 Last Admin: 11/19/18 06:34 Dose: 1 packet Zinc Acetate/Diphenhydramine (Benadryl 2% Cream) 1 applic TP DAILY [facility] Last Admin: 11/18/18 09:44 Dose: 1 applic - Objective Vital Signs: Vital Signs Temperature 98.8 F 11/19/18 07:33 Pulse Rate 80 11/19/18 07:33 Respiratory Rate 20 11/19/18 07:33 Blood Pressure 128/84 11/19/18 07:33 O2 Sat by Pulse Oximetry (%) 97 11/18/18 21:00 Constitutional: Yes: Calm, Mild Distress, Obese Cardiovascular: Yes: S1, S2 Respiratory: Yes: Regular, CTA Bilaterally Gastrointestinal: Yes: Normal Bowel Sounds, Soft Musculoskeletal: Yes: WNL Extremities: Yes: Other Wound/Incision: Yes: Dressing Dry and Intact Neurological: Yes: Alert, Oriented Psychiatric: Yes: Alert, Oriented Labs: CBC, BMP 11/19/18 05:18 11/18/18 07:51 INR, PTT INR 1.23 (0.83-1.09) H 11/13/18 17:48 Assessment/Plan Problem List - Problems (1) ARF (acute renal failure) Code(s): N17.9 - ACUTE KIDNEY FAILURE, UNSPECIFIED (2) Cellulitis Code(s): L03.90 - CELLULITIS, UNSPECIFIED Qualifiers: Site of cellulitis: unspecified site Qualified Code(s): L03.90 - Cellulitis , unspecified (3) Encephalopathy due to metabolic factor or toxin Code(s): [id number] - (4) Hyperglycemia Code(s): R73.9 - HYPERGLYCEMIA, UNSPECIFIED (5) Metabolic acidosis Code(s): E87.2 - ACIDOSIS (6) Morbid (severe) obesity due to excess calories Code(s): E66.01 - MORBID (SEVERE) OBESITY DUE TO EXCESS CALORIES (7) Polymorphic ventricular tachycardia Code(s): I47.2 - VENTRICULAR TACHYCARDIA (8) Sepsis Code(s): A41.9 - SEPSIS, UNSPECIFIED ORGANISM Qualifiers: Sepsis type: sepsis due to unspecified organism Qualified Code(s): A41.9 - Sepsis, unspecified organism (9) Afib Code(s): I48.91 - UNSPECIFIED ATRIAL FIBRILLATION Qualifiers: Atrial fibrillation type: paroxysmal Qualified Code(s): I48.0 - Paroxysmal atrial fibrillation (10) DM2 (diabetes mellitus, type 2) Code(s): E11.9 - TYPE 2 DIABETES MELLITUS WITHOUT COMPLICATIONS Qualifiers: Diabetes mellitus retirement insulin use: with rodent exterminator use Diabetes mellitus complication detail: with other circulatory complications (11) Fever Code(s): R50.9 - FEVER, UNSPECIFIED (12) HTN (hypertension) Code(s): I10 - ESSENTIAL (PRIMARY) HYPERTENSION (13) Ulcers of both lower extremities Code(s): L97.919 - NON-PRS CHRONIC ULC UNSP PRT OF R LOW LEG W UNSP SEVERITY; L97.929 - NON-PRS CHRONIC ULC UNSP PRT OF L LOW LEG W UNSP SEVERITY Qualifiers: Non-pressure ulcer stage: unspecified non-pressure ulcer stage Qualified Code(s): L97.919 - Non-pressure chronic ulcer of unspecified part of right lower leg with unspecified severity; L97.929 - Non-pressure chronic ulcer of unspecified part of left lower leg with unspecified severity; L97.929 - Non- pressure chronic ulcer of unspecified part of left lower leg with unspecified severity; L97.929 - Non-pressure chronic ulcer of unspecified part of left lower leg with unspecified severity; L97.929 - Non-pressure chronic ulcer of unspecified part of left lower leg with unspecified severity (14) Venous stasis Code(s): I87.8 - OTHER SPECIFIED DISORDERS OF VEINS Assessment/Plan Severe Sepsis - improving B/L LE cellulitis/infected ulcers s/p Acute respiratory failure AFIB DM morbid obesity Renal insufficiency NOVA Fever plan continue abx wound care physio out of bed
--- NOTE | 2018-11-19 13:15 | PN ---
Progress Note, Physician History of Present Illness: Pt seen and examined at bedside. She is awake and alert. She denies shortness of breath. - Current Medication List Current Medications: Active Medications Acetaminophen (Tylenol -) 650 mg PO Q6H PRN PRN Reason: FEVER Albuterol/Ipratropium (Duoneb -) 1 amp NEB Q6H PRN PRN Reason: SHORTNESS OF BREATH Apixaban (Eliquis -) 2.5 mg PO BID [facility] Last Admin: 11/19/18 10:38 Dose: 2.5 mg Bacitracin (Bacitracin -) 1 applic TP BID [facility] Last Admin: 11/18/18 22:20 Dose: 1 applic Budesonide/Formoterol Fumarate (Symbicort 80/4.5mcg -) 2 puff IH BID [facility] Last Admin: 11/19/18 10:39 Dose: 2 puff Diphenhydramine HCl (Benadryl -) 25 mg PO Q6H PRN PRN Reason: FOR ITCHING Last Admin: 11/19/18 10:50 Dose: 25 mg Meropenem 1 gm/ Dextrose 100 mls @ 200 mls/hr IVPB BID [facility] Last Admin: 11/19/18 11:11 Dose: 200 mls/hr Insulin Aspart (Novolog Vial Sliding Scale -) 1 vial SQ ACHS [facility]; Protocol Last Admin: 11/19/18 11:42 Dose: 8 units Insulin Detemir (Levemir Vial) 20 units SQ BID [facility] Last Admin: 11/19/18 10:51 Dose: 20 units Magnesium Oxide (Mag-Ox -) 400 mg PO BID [facility] Metoprolol Tartrate (Lopressor -) 25 mg PO DAILY [facility] Last Admin: 11/19/18 10:38 Dose: 25 mg Nystatin (Mycostatin Cream -) 1 applic TP Q6HPO [facility] Last Admin: 11/19/18 11:46 Dose: 1 applic Pantoprazole Sodium (Protonix -) 40 mg PO DAILY [facility] Last Admin: 11/19/18 10:38 Dose: 40 mg Polyethylene Glycol (Miralax (For Daily Use) -) 17 gm PO DAILY [facility] Last Admin: 11/19/18 10:38 Dose: Not Given Potassium Phos/Sodium Phos (Phos-Nak Packet -) 1 packet PO TID [facility] Stop: 11/19/18 14:01 Last Admin: 11/19/18 06:34 Dose: 1 packet Zinc Acetate/Diphenhydramine (Benadryl 2% Cream) 1 applic TP DAILY [facility] Last Admin: 11/18/18 09:44 Dose: 1 applic - Objective Vital Signs: Vital Signs Temperature 98.8 F 11/19/18 07:33 Pulse Rate 80 11/19/18 07:33 Respiratory Rate 20 11/19/18 07:33 Blood Pressure 128/84 11/19/18 07:33 O2 Sat by Pulse Oximetry (%) 97 11/18/18 21:00 Constitutional: Yes: Calm Eyes: Yes: Conjunctiva Clear HENT: Yes: Atraumatic Neck: Yes: Supple Cardiovascular: Yes: S1, S2 Respiratory: Yes: CTA Bilaterally Gastrointestinal: Yes: Soft, Abdomen, Obese Genitourinary: Yes: WNL Musculoskeletal: Yes: WNL Edema: Yes Edema: LLE: 1+, RLE: 1+ Neurological: Yes: Oriented Psychiatric: Yes: Oriented Labs: CBC, BMP 11/19/18 05:18 11/18/18 07:51 INR, PTT INR 1.23 (0.83-1.09) H 11/13/18 17:48 Problem List - Problems (1) ARF (acute renal failure) Code(s): N17.9 - ACUTE KIDNEY FAILURE, UNSPECIFIED (2) Cellulitis Code(s): L03.90 - CELLULITIS, UNSPECIFIED Qualifiers: Site of cellulitis: unspecified site Qualified Code(s): L03.90 - Cellulitis , unspecified (3) Encephalopathy due to metabolic factor or toxin Code(s): [id number] - (4) Hyperkalemia Code(s): E87.5 - HYPERKALEMIA (5) Metabolic acidosis Code(s): E87.2 - ACIDOSIS Assessment/Plan Current Medications Generic Name Dose Route Start Last Admin Trade Name Freq PRN Reason Stop Dose Admin Acetaminophen 650 mg 11/18/18 07:37 Tylenol - PO Q6H PRN FEVER Albuterol/Ipratropium 1 amp 11/17/18 21:10 Duoneb - NEB Q6H PRN SHORTNESS OF BREATH Apixaban 2.5 mg 11/17/18 22:00 11/19/18 10:38 Eliquis - PO 2.5 mg BID [facility] Administration Bacitracin 1 applic 11/17/18 12:15 11/18/18 22:20 Bacitracin - TP 1 applic BID [facility] Administration Budesonide/Formoterol Fumarate 2 puff 11/17/18 22:00 11/19/18 10:39 Symbicort 80/4.5mcg - IH 2 puff BID [facility] Administration Diphenhydramine HCl 25 mg 11/18/18 07:44 11/19/18 10:50 Benadryl - PO 25 mg Q6H PRN Administration FOR ITCHING Meropenem 1 gm/ Dextrose 100 mls @ 200 mls/hr 11/17/18 22:00 11/19/18 11:11 IVPB 200 mls/hr BID [facility] Administration Insulin Aspart 1 vial 11/17/18 22:00 11/19/18 11:42 Novolog Vial Sliding Scale - SQ 8 units ACHS [facility] Administration Protocol Insulin Detemir 20 units 11/19/18 10:00 11/19/18 10:51 Levemir Vial SQ 20 units BID [facility] Administration Magnesium Oxide 400 mg 11/19/18 22:00 Mag-Ox - PO BID [facility] Metoprolol Tartrate 25 mg 11/18/18 10:00 11/19/18 10:38 Lopressor - PO 25 mg DAILY [facility] Administration Nystatin 1 applic 11/18/18 00:00 11/19/18 11:46 Mycostatin Cream - TP 1 applic Q6HPO [facility] Administration Pantoprazole Sodium 40 mg 11/18/18 10:00 11/19/18 10:38 Protonix - PO 40 mg DAILY [facility] Administration Polyethylene Glycol 17 gm 11/18/18 10:00 11/19/18 10:38 Miralax (For Daily Use) - PO Not Given DAILY [facility] Potassium Phos/Sodium Phos 1 packet 11/18/18 19:06 11/19/18 06:34 Phos-Nak Packet - PO 11/19/18 14:01 1 packet TID [facility] Administration Zinc Acetate/Diphenhydramine 1 applic 11/18/18 10:00 11/18/18 09:44 Benadryl 2% Cream TP 1 applic DAILY [facility] Administration Impression 1. NOAV 2. hyperkalemia 3. obesity 4. DM 5. a-fib 6. HTN 7. chronic lower extremity ulcers 8. gastritis 9. sepsis 10. hyperglycemia 11. metabolic acidosis Plan - check bmp - check lytes - pt tolerating diet - mental status at baseline Dr Epstein
[2018-11-19] MEDS: BACITRACIN 15 GM TUBE TOPICAL OINTMENT TP SCH ×2 (14:05→21:51)
[2018-11-19] MEDS ORDERED: INSULIN (NOVOLOG) ASPART 100 UNITS/ML 10ML VIAL ONE ×2 (18:42→21:53)
[2018-11-19] MEDS ORDERED: INSULIN (LEVEMIR) 100 UNITS/ML UNITS SQ ONE (18:42)
[2018-11-19] MEDS: MAGNESIUM OXIDE 400 MG TABLET (FP) PO SCH (21:47)
--- NOTE | 2018-11-19 23:11 | PN ---
Progress Note, Physician - Current Medication List Current Medications: Active Medications Acetaminophen (Tylenol -) 650 mg PO Q6H PRN PRN Reason: FEVER Albuterol/Ipratropium (Duoneb -) 1 amp NEB Q6H PRN PRN Reason: SHORTNESS OF BREATH Apixaban (Eliquis -) 2.5 mg PO BID [facility] Last Admin: 11/19/18 21:47 Dose: 2.5 mg Bacitracin (Bacitracin -) 1 applic TP BID [facility] Last Admin: 11/19/18 21:51 Dose: 1 applic Budesonide/Formoterol Fumarate (Symbicort 80/4.5mcg -) 2 puff IH BID [facility] Last Admin: 11/19/18 21:50 Dose: 2 puff Diphenhydramine HCl (Benadryl -) 25 mg PO Q6H PRN PRN Reason: FOR ITCHING Last Admin: 11/19/18 10:50 Dose: 25 mg Meropenem 1 gm/ Dextrose 100 mls @ 200 mls/hr IVPB BID [facility] Last Admin: 11/19/18 21:48 Dose: 200 mls/hr Insulin Aspart (Novolog Vial Sliding Scale -) 1 vial SQ ACHS [facility]; Protocol Last Admin: 11/19/18 22:01 Dose: 4 units Insulin Detemir (Levemir Vial) 20 units SQ BID [facility] Last Admin: 11/19/18 21:49 Dose: 20 units Magnesium Oxide (Mag-Ox -) 400 mg PO BID [facility] Last Admin: 11/19/18 21:47 Dose: 400 mg Metoprolol Tartrate (Lopressor -) 25 mg PO DAILY [facility] Last Admin: 11/19/18 10:38 Dose: 25 mg Nystatin (Mycostatin Cream -) 1 applic TP Q6HPO [facility] Last Admin: 11/19/18 18:40 Dose: 1 applic Pantoprazole Sodium (Protonix -) 40 mg PO DAILY [facility] Last Admin: 11/19/18 10:38 Dose: 40 mg Polyethylene Glycol (Miralax (For Daily Use) -) 17 gm PO DAILY [facility] Last Admin: 11/19/18 10:38 Dose: Not Given Zinc Acetate/Diphenhydramine (Benadryl 2% Cream) 1 applic TP DAILY [facility] Last Admin: 11/19/18 14:05 Dose: 1 applic - Objective Vital Signs: Vital Signs Temperature 98.5 F 11/19/18 20:48 Pulse Rate 82 11/19/18 20:48 Respiratory Rate 18 11/19/18 20:48 Blood Pressure 124/75 11/19/18 20:48 O2 Sat by Pulse Oximetry (%) 97 11/18/18 21:00 Labs: CBC, BMP 11/19/18 05:18 11/18/18 07:51 INR, PTT INR 1.23 (0.83-1.09) H 11/13/18 17:48 Problem List - Problems (1) ARF (acute renal failure) Code(s): N17.9 - ACUTE KIDNEY FAILURE, UNSPECIFIED (2) Cellulitis Code(s): L03.90 - CELLULITIS, UNSPECIFIED Qualifiers: Site of cellulitis: unspecified site Qualified Code(s): L03.90 - Cellulitis , unspecified (3) Encephalopathy due to metabolic factor or toxin Code(s): [id number] - (4) Hyperglycemia Code(s): R73.9 - HYPERGLYCEMIA, UNSPECIFIED (5) Hyperkalemia Code(s): E87.5 - HYPERKALEMIA (6) Metabolic acidosis Code(s): E87.2 - ACIDOSIS (7) Morbid (severe) obesity due to excess calories Code(s): E66.01 - MORBID (SEVERE) OBESITY DUE TO EXCESS CALORIES
[2018-11-20] MEDS: NYSTATIN 100,000 UNIT/GM TOPICAL CREAM 15 GM TUBE TP SCH ×4 (00:20→17:53)
[2018-11-20] MEDS: INSULIN SLIDING SCALE (NOVOLOG) 1 VIAL SQ SCH ×4 (06:02→22:32)
[2018-11-20 07:16] LABS: HEMATOCRIT 30.5 % (32.4-45.2); HEMOGLOBIN 9.9 GM/dL (10.7-15.3); MCH 27.8 pg (25.7-33.7); MCHC 32.5 g/dl (32.0-36.0); MEAN CELL VOLUME 85.7 fl (80-96); PLATELET COUNT 232 K/MM3 (134-434); RBC 3.56 M/mm3 (3.60-5.2); RDW 15.1 % (11.6-15.6); WHITE BLOOD COUNT 16.3 K/mm3 (4.0-10.0)
[2018-11-20 07:34] LABS: ALBUMIN 2.4 g/dl (3.4-5.0); BILIRUBIN,TOTAL 0.2 mg/dL (0.2-1); BLOOD UREA NITROGEN 18.4 mg/dL (7-18); CALCIUM 8.3 mg/dL (8.5-10.1); CREATININE 1.1 mg/dL (0.55-1.3); MAGNESIUM 1.5 mg/dL (1.8-2.4); POTASSIUM 3.6 mmol/L (3.5-5.1)
--- NOTE | 2018-11-20 09:51 | PN ---
Progress Note, Physician History of Present Illness: patient is stable no new issues wbc has increased - Current Medication List Current Medications: Active Medications Acetaminophen (Tylenol -) 650 mg PO Q6H PRN PRN Reason: FEVER Albuterol/Ipratropium (Duoneb -) 1 amp NEB Q6H PRN PRN Reason: SHORTNESS OF BREATH Apixaban (Eliquis -) 2.5 mg PO BID [facility] Last Admin: 11/19/18 21:47 Dose: 2.5 mg Bacitracin (Bacitracin -) 1 applic TP BID [facility] Last Admin: 11/19/18 21:51 Dose: 1 applic Budesonide/Formoterol Fumarate (Symbicort 80/4.5mcg -) 2 puff IH BID [facility] Last Admin: 11/19/18 21:50 Dose: 2 puff Diphenhydramine HCl (Benadryl -) 25 mg PO Q6H PRN PRN Reason: FOR ITCHING Last Admin: 11/19/18 10:50 Dose: 25 mg Meropenem 1 gm/ Dextrose 100 mls @ 200 mls/hr IVPB BID [facility] Last Admin: 11/19/18 21:48 Dose: 200 mls/hr Insulin Aspart (Novolog Vial Sliding Scale -) 1 vial SQ ACHS [facility]; Protocol Last Admin: 11/20/18 06:02 Dose: Not Given Insulin Detemir (Levemir Vial) 25 units SQ BID [facility] Magnesium Oxide (Mag-Ox -) 400 mg PO BID [facility] Last Admin: 11/19/18 21:47 Dose: 400 mg Metoprolol Tartrate (Lopressor -) 25 mg PO DAILY [facility] Last Admin: 11/19/18 10:38 Dose: 25 mg Nystatin (Mycostatin Cream -) 1 applic TP Q6HPO [facility] Last Admin: 11/20/18 05:56 Dose: 1 applic Pantoprazole Sodium (Protonix -) 40 mg PO DAILY [facility] Last Admin: 11/19/18 10:38 Dose: 40 mg Polyethylene Glycol (Miralax (For Daily Use) -) 17 gm PO DAILY [facility] Last Admin: 11/19/18 10:38 Dose: Not Given Zinc Acetate/Diphenhydramine (Benadryl 2% Cream) 1 applic TP DAILY [facility] Last Admin: 11/19/18 14:05 Dose: 1 applic - Objective Vital Signs: Vital Signs Temperature 99.8 F H 11/20/18 06:43 Pulse Rate 80 11/20/18 06:43 Respiratory Rate 20 11/20/18 06:43 Blood Pressure 140/78 11/20/18 06:43 O2 Sat by Pulse Oximetry (%) 97 11/19/18 21:00 Constitutional: Yes: No Distress, Calm, Obese Cardiovascular: Yes: S1, S2 Respiratory: Yes: Regular, CTA Bilaterally Gastrointestinal: Yes: Normal Bowel Sounds, Soft Musculoskeletal: Yes: Other Extremities: Yes: Other Wound/Incision: Yes: Dressing Dry and Intact Neurological: Yes: Alert, Oriented Psychiatric: Yes: Alert Labs: CBC, BMP 11/20/18 06:05 11/20/18 06:05 INR, PTT INR 1.23 (0.83-1.09) H 11/13/18 17:48 Assessment/Plan Problem List - Problems (1) ARF (acute renal failure) Code(s): N17.9 - ACUTE KIDNEY FAILURE, UNSPECIFIED (2) Cellulitis Code(s): L03.90 - CELLULITIS, UNSPECIFIED Qualifiers: Site of cellulitis: unspecified site Qualified Code(s): L03.90 - Cellulitis , unspecified (3) Encephalopathy due to metabolic factor or toxin Code(s): [id number] - (4) Hyperglycemia Code(s): R73.9 - HYPERGLYCEMIA, UNSPECIFIED (5) Metabolic acidosis Code(s): E87.2 - ACIDOSIS (6) Morbid (severe) obesity due to excess calories Code(s): E66.01 - MORBID (SEVERE) OBESITY DUE TO EXCESS CALORIES (7) Polymorphic ventricular tachycardia Code(s): I47.2 - VENTRICULAR TACHYCARDIA (8) Sepsis Code(s): A41.9 - SEPSIS, UNSPECIFIED ORGANISM Qualifiers: Sepsis type: sepsis due to unspecified organism Qualified Code(s): A41.9 - Sepsis, unspecified organism (9) Afib Code(s): I48.91 - UNSPECIFIED ATRIAL FIBRILLATION Qualifiers: Atrial fibrillation type: paroxysmal Qualified Code(s): I48.0 - Paroxysmal atrial fibrillation (10) DM2 (diabetes mellitus, type 2) Code(s): E11.9 - TYPE 2 DIABETES MELLITUS WITHOUT COMPLICATIONS Qualifiers: Diabetes mellitus shelter insulin use: with shelter use Diabetes mellitus complication detail: with other circulatory complications (11) Fever Code(s): R50.9 - FEVER, UNSPECIFIED (12) HTN (hypertension) Code(s): I10 - ESSENTIAL (PRIMARY) HYPERTENSION (13) Ulcers of both lower extremities Code(s): L97.919 - NON-PRS CHRONIC ULC UNSP PRT OF R LOW LEG W UNSP SEVERITY; L97.929 - NON-PRS CHRONIC ULC UNSP PRT OF L LOW LEG W UNSP SEVERITY Qualifiers: Non-pressure ulcer stage: unspecified non-pressure ulcer stage Qualified Code(s): L97.919 - Non-pressure chronic ulcer of unspecified part of right lower leg with unspecified severity; L97.929 - Non-pressure chronic ulcer of unspecified part of left lower leg with unspecified severity; L97.929 - Non- pressure chronic ulcer of unspecified part of left lower leg with unspecified severity; L97.929 - Non-pressure chronic ulcer of unspecified part of left lower leg with unspecified severity; L97.929 - Non-pressure chronic ulcer of unspecified part of left lower leg with unspecified severity (14) Venous stasis Code(s): I87.8 - OTHER SPECIFIED DISORDERS OF VEINS Assessment/Plan Severe Sepsis - improving B/L LE cellulitis/infected ulcers s/p Acute respiratory failure AFIB DM morbid obesity Renal insufficiency NOVA Fever plan continue abx wound care physio out of bed
--- NOTE | 2018-11-20 09:53 | PN ---
Progress Note, Physician Chief Complaint: AWAKE ALERT I SPOKE TO HER ABOUT SIGNING OUT AMA SHE HAS AGREED TO STAY IN THE HOSPITAL AND COMPLETE HER MEDICAL CARE. TMAX 99.8 NO N/V +BM - Current Medication List Current Medications: Active Medications Acetaminophen (Tylenol -) 650 mg PO Q6H PRN PRN Reason: FEVER Albuterol/Ipratropium (Duoneb -) 1 amp NEB Q6H PRN PRN Reason: SHORTNESS OF BREATH Apixaban (Eliquis -) 2.5 mg PO BID [facility] Last Admin: 11/19/18 21:47 Dose: 2.5 mg Bacitracin (Bacitracin -) 1 applic TP BID [facility] Last Admin: 11/19/18 21:51 Dose: 1 applic Budesonide/Formoterol Fumarate (Symbicort 80/4.5mcg -) 2 puff IH BID [facility] Last Admin: 11/19/18 21:50 Dose: 2 puff Diphenhydramine HCl (Benadryl -) 25 mg PO Q6H PRN PRN Reason: FOR ITCHING Last Admin: 11/19/18 10:50 Dose: 25 mg Meropenem 1 gm/ Dextrose 100 mls @ 200 mls/hr IVPB BID [facility] Last Admin: 11/19/18 21:48 Dose: 200 mls/hr Insulin Aspart (Novolog Vial Sliding Scale -) 1 vial SQ ACHS [facility]; Protocol Last Admin: 11/20/18 06:02 Dose: Not Given Insulin Detemir (Levemir Vial) 25 units SQ BID [facility] Magnesium Oxide (Mag-Ox -) 400 mg PO BID [facility] Last Admin: 11/19/18 21:47 Dose: 400 mg Metoprolol Tartrate (Lopressor -) 25 mg PO DAILY [facility] Last Admin: 11/19/18 10:38 Dose: 25 mg Nystatin (Mycostatin Cream -) 1 applic TP Q6HPO [facility] Last Admin: 11/20/18 05:56 Dose: 1 applic Pantoprazole Sodium (Protonix -) 40 mg PO DAILY [facility] Last Admin: 11/19/18 10:38 Dose: 40 mg Polyethylene Glycol (Miralax (For Daily Use) -) 17 gm PO DAILY [facility] Last Admin: 11/19/18 10:38 Dose: Not Given Zinc Acetate/Diphenhydramine (Benadryl 2% Cream) 1 applic TP DAILY [facility] Last Admin: 11/19/18 14:05 Dose: 1 applic - Objective Vital Signs: Vital Signs Temperature 99.8 F H 11/20/18 06:43 Pulse Rate 80 11/20/18 06:43 Respiratory Rate 20 11/20/18 06:43 Blood Pressure 140/78 11/20/18 06:43 O2 Sat by Pulse Oximetry (%) 97 11/19/18 21:00 Constitutional: Yes: Mild Distress Eyes: Yes: WNL HENT: Yes: WNL Neck: Yes: WNL Cardiovascular: Yes: Regular Rate and Rhythm Respiratory: Yes: WNL Gastrointestinal: Yes: Abdomen, Obese Genitourinary: Yes: Other Musculoskeletal: Yes: Muscle Weakness Extremities: Yes: Deformity Edema: LLE: 2+, RLE: 2+ Integumentary: Yes: Erythema, Pressure Ulcer, Venous Stasis Changes Wound/Incision: Yes: Excoriated, Unapproximated Neurological: Yes: Unsteady Gait ...Motor Strength: LLE, RLE Psychiatric: Yes: Other Labs: CBC, BMP 11/20/18 06:05 11/20/18 06:05 INR, PTT INR 1.23 (0.83-1.09) H 11/13/18 17:48 Problem List - Problems (1) Toxic metabolic encephalopathy Code(s): G92 - TOXIC ENCEPHALOPATHY (2) ARF (acute renal failure) Code(s): N17.9 - ACUTE KIDNEY FAILURE, UNSPECIFIED (3) Cellulitis Code(s): L03.90 - CELLULITIS, UNSPECIFIED Qualifiers: Site of cellulitis: unspecified site Qualified Code(s): L03.90 - Cellulitis , unspecified (4) Encephalopathy due to metabolic factor or toxin Code(s): [id number] - (5) Hyperglycemia Code(s): R73.9 - HYPERGLYCEMIA, UNSPECIFIED (6) Hyperkalemia Code(s): E87.5 - HYPERKALEMIA (7) Metabolic acidosis Code(s): E87.2 - ACIDOSIS (8) Morbid (severe) obesity due to excess calories Code(s): E66.01 - MORBID (SEVERE) OBESITY DUE TO EXCESS CALORIES (9) Polymorphic ventricular tachycardia Code(s): I47.2 - VENTRICULAR TACHYCARDIA (10) Sepsis Code(s): A41.9 - SEPSIS, UNSPECIFIED ORGANISM Qualifiers: Sepsis type: sepsis due to unspecified organism Qualified Code(s): A41.9 - Sepsis, unspecified organism (11) Ventricular tachyarrhythmia Code(s): I47.2 - VENTRICULAR TACHYCARDIA (12) Afib Code(s): I48.91 - UNSPECIFIED ATRIAL FIBRILLATION Qualifiers: Atrial fibrillation type: paroxysmal Qualified Code(s): I48.0 - Paroxysmal atrial fibrillation (13) Altered mental status Code(s): R41.82 - ALTERED MENTAL STATUS, UNSPECIFIED (14) Drug rash Code(s): L27.0 - GEN SKIN ERUPTION DUE TO DRUGS AND MEDS TAKEN INTERNALLY Assessment/Plan PATIENT HAS AGREED TO STAY, SHE WILL NOT SIGN OUT AMA I EXPLAINED TO HER THE POSSIBILITY OF WORSENING INFECTION WITH SEPSIS AND IF SHE TAKES THE CHANCE TO LEAVE. VASC SURGERY EVAL LEG ULCERS APPRECIATED BENADRYL PRN FOR ALLERGIC RASH WILL NEED ID F/U ON ABX POSSIBLY CHANGE TO PO STOP IVF, ENCOURAGED PO INTAKE A1C HIGH ENDOCRINE CONSULT DIETARY CONSULT FOR DM/HTN/RENAL DIET/EDUCATION IV ABX PAIN CONTROL WOUND CARE TO LEGS RENAL F/U OBESITY D/W PATIENT DIET CONTROL TO IMPROVE DM, HTN. LIPIDS, OBESITY NON-COMPLIANT AND HAS NOT FOLLOWED UP REGULARLY IN MY OFFICE.
[2018-11-20] MEDS ORDERED: MEROPENEM 1 GM VIAL (RESTRICTED TO ID) IVPB ONE ×2 (10:04→22:19)
[2018-11-20] MEDS ORDERED: DEXTROSE 5%-WATER 100 ML IVPB ONE ×2 (10:04→22:19)
[2018-11-20] MEDS ORDERED: MAGNESIUM SULF 50% (8.12 MEQ/2 ML-1 GM VIAL) IVPB ONE (10:05)
[2018-11-20] MEDS: MAGNESIUM OXIDE 400 MG TABLET (FP) PO SCH ×2 (10:07→22:31)
[2018-11-20] MEDS: METOPROLOL TARTRATE 25 MG TABLET (FP) PO SCH (10:07)
[2018-11-20] MEDS: APIXABAN 2.5 MG TABLET PO SCH ×2 (10:07→22:31)
[2018-11-20] MEDS: POLYETHYLENE GLYCOL 3350 119 GM BTL PO SCH (10:08)
[2018-11-20] MEDS: PANTOPRAZOLE 40 MG TABLET (FP) PO SCH (10:09)
[2018-11-20] MEDS: MEROPENEM 1 GM in DEXTROSE 5%-WATER 100 ML IVPB SCH ×2 (10:09→22:31)
[2018-11-20] MEDS: BUDESONIDE/FORMETEROL FUMARATE 80/4.5 mcg INHALER IH SCH ×2 (10:11→22:34)
[2018-11-20] MEDS: INSULIN (LEVEMIR) 100 UNITS/ML UNITS SQ SCH ×2 (10:11→22:31)
[2018-11-20] MEDS: BACITRACIN 15 GM TUBE TOPICAL OINTMENT TP SCH ×2 (10:12→22:31)
--- NOTE | 2018-11-20 16:15 | PN ---
Progress Note, Physician History of Present Illness: Pt seen and examined at bedside. SHe is awake and alert. She denies shortness of breath. - Current Medication List Current Medications: Active Medications Acetaminophen (Tylenol -) 650 mg PO Q6H PRN PRN Reason: FEVER Last Admin: 11/20/18 13:38 Dose: 650 mg Albuterol/Ipratropium (Duoneb -) 1 amp NEB Q6H PRN PRN Reason: SHORTNESS OF BREATH Apixaban (Eliquis -) 2.5 mg PO BID [facility] Last Admin: 11/20/18 10:07 Dose: 2.5 mg Bacitracin (Bacitracin -) 1 applic TP BID [facility] Last Admin: 11/20/18 10:12 Dose: 1 applic Budesonide/Formoterol Fumarate (Symbicort 80/4.5mcg -) 2 puff IH BID [facility] Last Admin: 11/20/18 10:11 Dose: 2 puff Diphenhydramine HCl (Benadryl -) 25 mg PO Q6H PRN PRN Reason: FOR ITCHING Last Admin: 11/19/18 10:50 Dose: 25 mg Meropenem 1 gm/ Dextrose 100 mls @ 200 mls/hr IVPB BID [facility] Last Admin: 11/20/18 10:09 Dose: 200 mls/hr Insulin Aspart (Novolog Vial Sliding Scale -) 1 vial SQ ACHS [facility]; Protocol Last Admin: 11/20/18 11:30 Dose: 5 units Insulin Detemir (Levemir Vial) 25 units SQ BID [facility] Last Admin: 11/20/18 10:11 Dose: 25 units Magnesium Oxide (Mag-Ox -) 400 mg PO BID [facility] Last Admin: 11/20/18 10:07 Dose: 400 mg Metoprolol Tartrate (Lopressor -) 25 mg PO DAILY [facility] Last Admin: 11/20/18 10:07 Dose: 25 mg Nystatin (Mycostatin Cream -) 1 applic TP Q6HPO [facility] Last Admin: 11/20/18 11:31 Dose: 1 applic Pantoprazole Sodium (Protonix -) 40 mg PO DAILY [facility] Last Admin: 11/20/18 10:09 Dose: 40 mg Polyethylene Glycol (Miralax (For Daily Use) -) 17 gm PO DAILY [facility] Last Admin: 11/20/18 10:08 Dose: 17 gm Zinc Acetate/Diphenhydramine (Benadryl 2% Cream) 1 applic TP DAILY [facility] Last Admin: 11/20/18 10:12 Dose: 1 applic - Objective Vital Signs: Vital Signs Temperature 98.6 F 11/20/18 14:00 Pulse Rate 78 11/20/18 14:00 Respiratory Rate 20 11/20/18 14:00 Blood Pressure 122/62 11/20/18 14:00 O2 Sat by Pulse Oximetry (%) 97 11/19/18 21:00 Constitutional: Yes: Calm Eyes: Yes: Conjunctiva Clear HENT: Yes: Atraumatic Neck: Yes: Supple Cardiovascular: Yes: S1, S2 Respiratory: Yes: CTA Bilaterally Gastrointestinal: Yes: Soft, Abdomen, Obese Genitourinary: Yes: WNL Musculoskeletal: Yes: WNL Edema: Yes Edema: LLE: 1+, RLE: 1+ Neurological: Yes: Oriented Psychiatric: Yes: Oriented Labs: CBC, BMP 11/20/18 06:05 11/20/18 06:05 INR, PTT INR 1.23 (0.83-1.09) H 11/13/18 17:48 Problem List - Problems (1) ARF (acute renal failure) Code(s): N17.9 - ACUTE KIDNEY FAILURE, UNSPECIFIED (2) Cellulitis Code(s): L03.90 - CELLULITIS, UNSPECIFIED Qualifiers: Site of cellulitis: unspecified site Qualified Code(s): L03.90 - Cellulitis , unspecified (3) Encephalopathy due to metabolic factor or toxin Code(s): [id number] - (4) Hyperkalemia Code(s): E87.5 - HYPERKALEMIA (5) Metabolic acidosis Code(s): E87.2 - ACIDOSIS Assessment/Plan Current Medications Generic Name Dose Route Start Last Admin Trade Name Freq PRN Reason Stop Dose Admin Acetaminophen 650 mg 11/18/18 07:37 11/20/18 13:38 Tylenol - PO 650 mg Q6H PRN Administration FEVER Albuterol/Ipratropium 1 amp 11/17/18 21:10 Duoneb - NEB Q6H PRN SHORTNESS OF BREATH Apixaban 2.5 mg 11/17/18 22:00 11/20/18 10:07 Eliquis - PO 2.5 mg BID [facility] Administration Bacitracin 1 applic 11/17/18 12:15 11/20/18 10:12 Bacitracin - TP 1 applic BID [facility] Administration Budesonide/Formoterol Fumarate 2 puff 11/17/18 22:00 11/20/18 10:11 Symbicort 80/4.5mcg - IH 2 puff BID [facility] Administration Diphenhydramine HCl 25 mg 11/18/18 07:44 11/19/18 10:50 Benadryl - PO 25 mg Q6H PRN Administration FOR ITCHING Meropenem 1 gm/ Dextrose 100 mls @ 200 mls/hr 11/17/18 22:00 11/20/18 10:09 IVPB 200 mls/hr BID [facility] Administration Insulin Aspart 1 vial 11/19/18 23:16 11/20/18 11:30 Novolog Vial Sliding Scale - SQ 5 units ACHS [facility] Administration Protocol Insulin Detemir 25 units 11/19/18 23:17 11/20/18 10:11 Levemir Vial SQ 25 units BID [facility] Administration Magnesium Oxide 400 mg 11/19/18 22:00 11/20/18 10:07 Mag-Ox - PO 400 mg BID [facility] Administration Metoprolol Tartrate 25 mg 11/18/18 10:00 11/20/18 10:07 Lopressor - PO 25 mg DAILY [facility] Administration Nystatin 1 applic 11/18/18 00:00 11/20/18 11:31 Mycostatin Cream - TP 1 applic Q6HPO [facility]ANCE Administration Pantoprazole Sodium 40 mg 11/18/18 10:00 11/20/18 10:09 Protonix - PO 40 mg DAILY LANCE Administration Polyethylene Glycol 17 gm 11/18/18 10:00 11/20/18 10:08 Miralax (For Daily Use) - PO 17 gm DAILY LANCE Administration Zinc Acetate/Diphenhydramine 1 applic 11/18/18 10:00 11/20/18 10:12 Benadryl 2% Cream TP 1 applic DAILY LANCE Administration Impression 1. NOVA 2. hyperkalemia 3. obesity 4. DM 5. a-fib 6. HTN 7. chronic lower extremity ulcers 8. gastritis 9. sepsis 10. hyperglycemia 11. metabolic acidosis Plan - renal function is stable - discussed importance of outpt follow up - pt tolerating diet - she agrees to stay today Dr Epstein
[2018-11-20] MEDS ORDERED: INSULIN (NOVOLOG) ASPART 100 UNITS/ML 10ML VIAL ONE (16:57)
[2018-11-20] MEDS ORDERED: INSULIN (LEVEMIR) 100 UNITS/ML UNITS SQ ONE (16:57)
[2018-11-21] MEDS: NYSTATIN 100,000 UNIT/GM TOPICAL CREAM 15 GM TUBE TP SCH ×4 (00:30→17:23)
[2018-11-21] MEDS: INSULIN SLIDING SCALE (NOVOLOG) 1 VIAL SQ SCH ×4 (07:09→22:07)
[2018-11-21 07:39] LABS: HEMATOCRIT 31.9 % (32.4-45.2); HEMOGLOBIN 10.3 GM/dL (10.7-15.3); MCH 27.8 pg (25.7-33.7); MCHC 32.2 g/dl (32.0-36.0); MEAN CELL VOLUME 86.4 fl (80-96); MEAN PLT VOLUME 9.7 fl (7.5-11.1); RBC 3.69 M/mm3 (3.60-5.2); RDW 15.3 % (11.6-15.6); WHITE BLOOD COUNT 12.8 K/mm3 (4.0-10.0)
[2018-11-21 07:41] LABS: BLOOD UREA NITROGEN 17.8 mg/dL (7-18); CALCIUM 8.1 mg/dL (8.5-10.1); MAGNESIUM 1.7 mg/dL (1.8-2.4); PHOSPHOROUS 2.6 mg/dL (2.5-4.9)
--- NOTE | 2018-11-21 07:45 | PN ---
Progress Note, Physician History of Present Illness: patient stable no complaints legs looks good - Current Medication List Current Medications: Active Medications Acetaminophen (Tylenol -) 650 mg PO Q6H PRN PRN Reason: FEVER Last Admin: 11/20/18 13:38 Dose: 650 mg Albuterol/Ipratropium (Duoneb -) 1 amp NEB Q6H PRN PRN Reason: SHORTNESS OF BREATH Apixaban (Eliquis -) 2.5 mg PO BID [facility] Last Admin: 11/20/18 22:31 Dose: 2.5 mg Bacitracin (Bacitracin -) 1 applic TP BID [facility] Last Admin: 11/20/18 22:31 Dose: 1 applic Budesonide/Formoterol Fumarate (Symbicort 80/4.5mcg -) 2 puff IH BID [facility] Last Admin: 11/20/18 22:34 Dose: 2 puff Diphenhydramine HCl (Benadryl -) 25 mg PO Q6H PRN PRN Reason: FOR ITCHING Last Admin: 11/19/18 10:50 Dose: 25 mg Meropenem 1 gm/ Dextrose 100 mls @ 200 mls/hr IVPB BID [facility] Last Admin: 11/20/18 22:31 Dose: 200 mls/hr Insulin Aspart (Novolog Vial Sliding Scale -) 1 vial SQ [facility]; Protocol Last Admin: 11/21/18 07:09 Dose: Not Given Insulin Detemir (Levemir Vial) 25 units SQ BID [facility] Last Admin: 11/20/18 22:31 Dose: 25 units Magnesium Oxide (Mag-Ox -) 400 mg PO BID [facility] Last Admin: 11/20/18 22:31 Dose: 400 mg Metoprolol Tartrate (Lopressor -) 25 mg PO DAILY [facility] Last Admin: 11/20/18 10:07 Dose: 25 mg Nystatin (Mycostatin Cream -) 1 applic TP Q6HPO [facility] Last Admin: 11/21/18 06:36 Dose: 1 applic Pantoprazole Sodium (Protonix -) 40 mg PO DAILY [facility] Last Admin: 11/20/18 10:09 Dose: 40 mg Polyethylene Glycol (Miralax (For Daily Use) -) 17 gm PO DAILY [facility] Last Admin: 11/20/18 10:08 Dose: 17 gm Zinc Acetate/Diphenhydramine (Benadryl 2% Cream) 1 applic TP DAILY [facility] Last Admin: 11/20/18 10:12 Dose: 1 applic - Objective Vital Signs: Vital Signs Temperature 96.8 F L 11/21/18 06:00 Pulse Rate 96 H 11/21/18 06:00 Respiratory Rate 20 11/21/18 06:00 Blood Pressure 170/78 11/21/18 06:00 O2 Sat by Pulse Oximetry (%) 97 11/20/18 21:00 Constitutional: Yes: No Distress, Calm, Obese Cardiovascular: Yes: Regular Rate and Rhythm Respiratory: Yes: Regular, CTA Bilaterally Gastrointestinal: Yes: Normal Bowel Sounds, Soft Musculoskeletal: Yes: WNL Extremities: Yes: Other Neurological: Yes: Alert, Oriented Psychiatric: Yes: Alert, Oriented Labs: CBC, BMP 11/21/18 06:35 INR, PTT INR 1.23 (0.83-1.09) H 11/13/18 17:48 Assessment/Plan Problem List - Problems (1) ARF (acute renal failure) Code(s): N17.9 - ACUTE KIDNEY FAILURE, UNSPECIFIED (2) Cellulitis Code(s): L03.90 - CELLULITIS, UNSPECIFIED Qualifiers: Site of cellulitis: unspecified site Qualified Code(s): L03.90 - Cellulitis , unspecified (3) Encephalopathy due to metabolic factor or toxin Code(s): [id number] - (4) Hyperglycemia Code(s): R73.9 - HYPERGLYCEMIA, UNSPECIFIED (5) Metabolic acidosis Code(s): E87.2 - ACIDOSIS (6) Morbid (severe) obesity due to excess calories Code(s): E66.01 - MORBID (SEVERE) OBESITY DUE TO EXCESS CALORIES (7) Polymorphic ventricular tachycardia Code(s): I47.2 - VENTRICULAR TACHYCARDIA (8) Sepsis Code(s): A41.9 - SEPSIS, UNSPECIFIED ORGANISM Qualifiers: Sepsis type: sepsis due to unspecified organism Qualified Code(s): A41.9 - Sepsis, unspecified organism (9) Afib Code(s): I48.91 - UNSPECIFIED ATRIAL FIBRILLATION Qualifiers: Atrial fibrillation type: paroxysmal Qualified Code(s): I48.0 - Paroxysmal atrial fibrillation (10) DM2 (diabetes mellitus, type 2) Code(s): E11.9 - TYPE 2 DIABETES MELLITUS WITHOUT COMPLICATIONS Qualifiers: Diabetes mellitus fpc insulin use: with fpc use Diabetes mellitus complication detail: with other circulatory complications (11) Fever Code(s): R50.9 - FEVER, UNSPECIFIED (12) HTN (hypertension) Code(s): I10 - ESSENTIAL (PRIMARY) HYPERTENSION (13) Ulcers of both lower extremities Code(s): L97.919 - NON-PRS CHRONIC ULC UNSP PRT OF R LOW LEG W UNSP SEVERITY; L97.929 - NON-PRS CHRONIC ULC UNSP PRT OF L LOW LEG W UNSP SEVERITY Qualifiers: Non-pressure ulcer stage: unspecified non-pressure ulcer stage Qualified Code(s): L97.919 - Non-pressure chronic ulcer of unspecified part of right lower leg with unspecified severity; L97.929 - Non-pressure chronic ulcer of unspecified part of left lower leg with unspecified severity; L97.929 - Non- pressure chronic ulcer of unspecified part of left lower leg with unspecified severity; L97.929 - Non-pressure chronic ulcer of unspecified part of left lower leg with unspecified severity; L97.929 - Non-pressure chronic ulcer of unspecified part of left lower leg with unspecified severity (14) Venous stasis Code(s): I87.8 - OTHER SPECIFIED DISORDERS OF VEINS Assessment/Plan Severe Sepsis - improving B/L LE cellulitis/infected ulcers s/p Acute respiratory failure AFIB DM morbid obesity Renal insufficiency NOVA Fever plan continue abx wound care physio out of bed
[2018-11-21 08:10] LABS: PLATELET COUNT 248 K/MM3 (134-434)
[2018-11-21] MEDS ORDERED: MEROPENEM 1 GM VIAL (RESTRICTED TO ID) IVPB ONE ×2 (08:57→21:06)
[2018-11-21] MEDS ORDERED: DEXTROSE 5%-WATER 100 ML IVPB ONE ×2 (08:57→21:07)
[2018-11-21] MEDS: MEROPENEM 1 GM in DEXTROSE 5%-WATER 100 ML IVPB SCH ×2 (09:01→21:59)
[2018-11-21] MEDS: PANTOPRAZOLE 40 MG TABLET (FP) PO SCH (09:01)
[2018-11-21] MEDS: MAGNESIUM OXIDE 400 MG TABLET (FP) PO SCH ×2 (09:02→21:59)
[2018-11-21] MEDS: BACITRACIN 15 GM TUBE TOPICAL OINTMENT TP SCH ×2 (09:02→21:58)
[2018-11-21] MEDS: APIXABAN 2.5 MG TABLET PO SCH ×2 (09:02→21:58)
[2018-11-21] MEDS: METOPROLOL TARTRATE 25 MG TABLET (FP) PO SCH (09:02)
[2018-11-21] MEDS: POLYETHYLENE GLYCOL 3350 119 GM BTL PO SCH (09:03)
[2018-11-21] MEDS: BUDESONIDE/FORMETEROL FUMARATE 80/4.5 mcg INHALER IH SCH ×2 (09:03→22:07)
[2018-11-21] MEDS: INSULIN (LEVEMIR) 100 UNITS/ML UNITS SQ SCH ×2 (09:07→21:58)
--- NOTE | 2018-11-21 10:19 | PN ---
Progress Note, Physician Chief Complaint: AWAKE ALERT DENIES FEVER BUT DOES HAVE CHILLS NO SOB, NO COUGH - Current Medication List Current Medications: Active Medications Acetaminophen (Tylenol -) 650 mg PO Q6H PRN PRN Reason: FEVER Last Admin: 11/20/18 13:38 Dose: 650 mg Albuterol/Ipratropium (Duoneb -) 1 amp NEB Q6H PRN PRN Reason: SHORTNESS OF BREATH Apixaban (Eliquis -) 2.5 mg PO BID [facility] Last Admin: 11/21/18 09:02 Dose: 2.5 mg Bacitracin (Bacitracin -) 1 applic TP BID [facility] Last Admin: 11/21/18 09:02 Dose: 1 applic Budesonide/Formoterol Fumarate (Symbicort 80/4.5mcg -) 2 puff IH BID [facility] Last Admin: 11/21/18 09:03 Dose: 2 puff Diphenhydramine HCl (Benadryl -) 25 mg PO Q6H PRN PRN Reason: FOR ITCHING Last Admin: 11/19/18 10:50 Dose: 25 mg Meropenem 1 gm/ Dextrose 100 mls @ 200 mls/hr IVPB BID [facility] Last Admin: 11/21/18 09:01 Dose: 200 mls/hr Insulin Aspart (Novolog Vial Sliding Scale -) 1 vial SQ ACHS [facility]; Protocol Last Admin: 11/21/18 07:09 Dose: Not Given Insulin Detemir (Levemir Vial) 25 units SQ BID [facility] Last Admin: 11/21/18 09:07 Dose: 25 units Magnesium Oxide (Mag-Ox -) 400 mg PO BID [facility] Last Admin: 11/21/18 09:02 Dose: 400 mg Metoprolol Tartrate (Lopressor -) 25 mg PO DAILY [facility] Last Admin: 11/21/18 09:02 Dose: 25 mg Nystatin (Mycostatin Cream -) 1 applic TP Q6HPO [facility] Last Admin: 11/21/18 06:36 Dose: 1 applic Pantoprazole Sodium (Protonix -) 40 mg PO DAILY [facility] Last Admin: 11/21/18 09:01 Dose: 40 mg Polyethylene Glycol (Miralax (For Daily Use) -) 17 gm PO DAILY [facility] Last Admin: 11/21/18 09:03 Dose: Not Given Zinc Acetate/Diphenhydramine (Benadryl 2% Cream) 1 applic TP DAILY [facility] Last Admin: 11/21/18 09:02 Dose: 1 applic - Objective Vital Signs: Vital Signs Temperature 96.8 F L 11/21/18 06:00 Pulse Rate 96 H 11/21/18 06:00 Respiratory Rate 20 11/21/18 06:00 Blood Pressure 170/78 11/21/18 06:00 O2 Sat by Pulse Oximetry (%) 97 11/20/18 21:00 Constitutional: Yes: Mild Distress Eyes: Yes: WNL HENT: Yes: WNL Neck: Yes: WNL Cardiovascular: Yes: Regular Rate and Rhythm Respiratory: Yes: WNL Gastrointestinal: Yes: Abdomen, Obese Genitourinary: Yes: WNL Musculoskeletal: Yes: Other Extremities: Yes: Deformity Edema: Yes Edema: LLE: 2+, RLE: 2+ Integumentary: Yes: Pressure Ulcer, Venous Stasis Changes Wound/Incision: Yes: Dressing Dry and Intact, Reddened, Excoriated, Unapproximated Neurological: Yes: WNL, Loss of Sensation, Paresthesia ...Motor Strength: LLE, RLE Psychiatric: Yes: Other Labs: CBC, BMP 11/21/18 06:35 11/21/18 06:35 INR, PTT INR 1.23 (0.83-1.09) H 11/13/18 17:48 Problem List - Problems (1) Toxic metabolic encephalopathy Code(s): G92 - TOXIC ENCEPHALOPATHY (2) ARF (acute renal failure) Code(s): N17.9 - ACUTE KIDNEY FAILURE, UNSPECIFIED (3) Cellulitis Code(s): L03.90 - CELLULITIS, UNSPECIFIED Qualifiers: Site of cellulitis: unspecified site Qualified Code(s): L03.90 - Cellulitis , unspecified (4) Encephalopathy due to metabolic factor or toxin Code(s): [id number] - (5) Hyperglycemia Code(s): R73.9 - HYPERGLYCEMIA, UNSPECIFIED (6) Hyperkalemia Code(s): E87.5 - HYPERKALEMIA (7) Metabolic acidosis Code(s): E87.2 - ACIDOSIS (8) Morbid (severe) obesity due to excess calories Code(s): E66.01 - MORBID (SEVERE) OBESITY DUE TO EXCESS CALORIES (9) Polymorphic ventricular tachycardia Code(s): I47.2 - VENTRICULAR TACHYCARDIA (10) Sepsis Code(s): A41.9 - SEPSIS, UNSPECIFIED ORGANISM Qualifiers: Sepsis type: sepsis due to unspecified organism Qualified Code(s): A41.9 - Sepsis, unspecified organism (11) Ventricular tachyarrhythmia Code(s): I47.2 - VENTRICULAR TACHYCARDIA (12) Afib Code(s): I48.91 - UNSPECIFIED ATRIAL FIBRILLATION Qualifiers: Atrial fibrillation type: paroxysmal Qualified Code(s): I48.0 - Paroxysmal atrial fibrillation (13) Altered mental status Code(s): R41.82 - ALTERED MENTAL STATUS, UNSPECIFIED (14) Drug rash Code(s): L27.0 - GEN SKIN ERUPTION DUE TO DRUGS AND MEDS TAKEN INTERNALLY Assessment/Plan PATIENT HAS BEEN IMPROVING HER WBC DOWN TO 12 CONTINUE IV ABX, CHANGE TO PO TOMORROW AND DISCHARGE IF BETTER WOUND CARE WILL NEED OUTPATIENT F/U WITH WOUND CENETER STRICT DIET WITH CONTROL OG BGM, LOW NA+, LOW FAT OUTPATIENT PT REFUSING SNF
[2018-11-21] MEDS ORDERED: MAGNESIUM SULF 50% (8.12 MEQ/2 ML-1 GM VIAL) IVPB ONE (10:50)
--- NOTE | 2018-11-21 13:21 | PN ---
Progress Note, Physician History of Present Illness: Pt seen and examined at bedside. She is awake and alert. She denies fever or chills. - Current Medication List Current Medications: Active Medications Acetaminophen (Tylenol -) 650 mg PO Q6H PRN PRN Reason: FEVER Last Admin: 11/20/18 13:38 Dose: 650 mg Albuterol/Ipratropium (Duoneb -) 1 amp NEB Q6H PRN PRN Reason: SHORTNESS OF BREATH Apixaban (Eliquis -) 2.5 mg PO BID [facility] Last Admin: 11/21/18 09:02 Dose: 2.5 mg Bacitracin (Bacitracin -) 1 applic TP BID [facility] Last Admin: 11/21/18 09:02 Dose: 1 applic Budesonide/Formoterol Fumarate (Symbicort 80/4.5mcg -) 2 puff IH BID [facility] Last Admin: 11/21/18 09:03 Dose: 2 puff Diphenhydramine HCl (Benadryl -) 25 mg PO Q6H PRN PRN Reason: FOR ITCHING Last Admin: 11/19/18 10:50 Dose: 25 mg Meropenem 1 gm/ Dextrose 100 mls @ 200 mls/hr IVPB BID [facility] Last Admin: 11/21/18 09:01 Dose: 200 mls/hr Insulin Aspart (Novolog Vial Sliding Scale -) 1 vial SQ ACHS [facility]; Protocol Last Admin: 11/21/18 12:47 Dose: 4 units Insulin Detemir (Levemir Vial) 25 units SQ BID [facility] Last Admin: 11/21/18 09:07 Dose: 25 units Magnesium Oxide (Mag-Ox -) 400 mg PO BID [facility] Last Admin: 11/21/18 09:02 Dose: 400 mg Metoprolol Tartrate (Lopressor -) 25 mg PO DAILY [facility] Last Admin: 11/21/18 09:02 Dose: 25 mg Nystatin (Mycostatin Cream -) 1 applic TP Q6HPO [facility] Last Admin: 11/21/18 12:49 Dose: 1 applic Pantoprazole Sodium (Protonix -) 40 mg PO DAILY [facility] Last Admin: 11/21/18 09:01 Dose: 40 mg Polyethylene Glycol (Miralax (For Daily Use) -) 17 gm PO DAILY [facility] Last Admin: 11/21/18 09:03 Dose: Not Given Zinc Acetate/Diphenhydramine (Benadryl 2% Cream) 1 applic TP DAILY [facility] Last Admin: 11/21/18 09:02 Dose: 1 applic - Objective Vital Signs: Vital Signs Temperature 98.6 F 11/21/18 10:00 Pulse Rate 88 11/21/18 10:00 Respiratory Rate 18 11/21/18 10:00 Blood Pressure 130/70 11/21/18 10:00 O2 Sat by Pulse Oximetry (%) 97 11/20/18 21:00 Constitutional: Yes: Calm Eyes: Yes: Conjunctiva Clear HENT: Yes: Atraumatic Neck: Yes: Supple Cardiovascular: Yes: S1, S2 Respiratory: Yes: CTA Bilaterally Gastrointestinal: Yes: Soft Genitourinary: Yes: WNL Musculoskeletal: Yes: WNL Edema: Yes Edema: LLE: Trace, RLE: Trace Integumentary: Yes: Venous Stasis Changes Neurological: Yes: Oriented Psychiatric: Yes: Oriented Labs: CBC, BMP 11/21/18 06:35 11/21/18 06:35 INR, PTT INR 1.23 (0.83-1.09) H 11/13/18 17:48 Problem List - Problems (1) ARF (acute renal failure) Code(s): N17.9 - ACUTE KIDNEY FAILURE, UNSPECIFIED (2) Cellulitis Code(s): L03.90 - CELLULITIS, UNSPECIFIED Qualifiers: Site of cellulitis: unspecified site Qualified Code(s): L03.90 - Cellulitis , unspecified (3) Encephalopathy due to metabolic factor or toxin Code(s): [id number] - (4) Hyperkalemia Code(s): E87.5 - HYPERKALEMIA (5) Metabolic acidosis Code(s): E87.2 - ACIDOSIS Assessment/Plan Current Medications Generic Name Dose Route Start Last Admin Trade Name Freq PRN Reason Stop Dose Admin Acetaminophen 650 mg 11/18/18 07:37 11/20/18 13:38 Tylenol - PO 650 mg Q6H PRN Administration FEVER Albuterol/Ipratropium 1 amp 11/17/18 21:10 Duoneb - NEB Q6H PRN SHORTNESS OF BREATH Apixaban 2.5 mg 11/17/18 22:00 11/21/18 09:02 Eliquis - PO 2.5 mg BID [facility] Administration Bacitracin 1 applic 11/17/18 12:15 11/21/18 09:02 Bacitracin - TP 1 applic BID [facility] Administration Budesonide/Formoterol Fumarate 2 puff 11/17/18 22:00 11/21/18 09:03 Symbicort 80/4.5mcg - IH 2 puff BID [facility] Administration Diphenhydramine HCl 25 mg 11/18/18 07:44 11/19/18 10:50 Benadryl - PO 25 mg Q6H PRN Administration FOR ITCHING Meropenem 1 gm/ Dextrose 100 mls @ 200 mls/hr 11/17/18 22:00 11/21/18 09:01 IVPB 200 mls/hr BID [facility] Administration Insulin Aspart 1 vial 11/19/18 23:16 11/21/18 12:47 Novolog Vial Sliding Scale - SQ 4 units ACHS [facility] Administration Protocol Insulin Detemir 25 units 11/19/18 23:17 11/21/18 09:07 Levemir Vial SQ 25 units BID [facility] Administration Magnesium Oxide 400 mg 11/19/18 22:00 11/21/18 09:02 Mag-Ox - PO 400 mg BID [facility] Administration Metoprolol Tartrate 25 mg 11/18/18 10:00 11/21/18 09:02 Lopressor - PO 25 mg DAILY [facility] Administration Nystatin 1 applic 11/18/18 00:00 11/21/18 12:49 Mycostatin Cream - TP 1 applic Q6HPO [facility] Administration Pantoprazole Sodium 40 mg 11/18/18 10:00 11/21/18 09:01 Protonix - PO 40 mg DAILY [facility] Administration Polyethylene Glycol 17 gm 11/18/18 10:00 11/21/18 09:03 Miralax (For Daily Use) - PO Not Given DAILY [facility] Zinc Acetate/Diphenhydramine 1 applic 11/18/18 10:00 11/21/18 09:02 Benadryl 2% Cream TP 1 applic DAILY [facility] Administration Impression 1. NOVA 2. hyperkalemia 3. obesity 4. DM 5. a-fib 6. HTN 7. chronic lower extremity ulcers 8. gastritis 9. sepsis 10. hyperglycemia 11. metabolic acidosis Plan - abx per primary team - renal function improved - outpt follow up - pt tolerating diet Dr Epstein
[2018-11-22] MEDS: NYSTATIN 100,000 UNIT/GM TOPICAL CREAM 15 GM TUBE TP SCH ×3 (00:57→11:42)
[2018-11-22] MEDS: INSULIN SLIDING SCALE (NOVOLOG) 1 VIAL SQ SCH ×2 (06:07→11:11)
[2018-11-22 07:43] LABS: HEMATOCRIT 29.1 % (32.4-45.2); HEMOGLOBIN 9.5 GM/dL (10.7-15.3); MCH 28.4 pg (25.7-33.7); MCHC 32.8 g/dl (32.0-36.0); MEAN CELL VOLUME 86.7 fl (80-96); MEAN PLT VOLUME 10.1 fl (7.5-11.1); RBC 3.36 M/mm3 (3.60-5.2); RDW 15.5 % (11.6-15.6); WHITE BLOOD COUNT 10.4 K/mm3 (4.0-10.0)
[2018-11-22 07:53] LABS: BLOOD UREA NITROGEN 14.9 mg/dL (7-18); CALCIUM 7.9 mg/dL (8.5-10.1); CREATININE 0.9 mg/dL (0.55-1.3); POTASSIUM 4.3 mmol/L (3.5-5.1)
[2018-11-22] MEDS ORDERED: MEROPENEM 1 GM VIAL (RESTRICTED TO ID) IVPB ONE (08:41)
[2018-11-22] MEDS ORDERED: DEXTROSE 5%-WATER 100 ML IVPB ONE (08:42)
[2018-11-22] MEDS ORDERED: PT OWN MED DRAWER 7, Y5N ONE (08:56)
[2018-11-22] MEDS: METOPROLOL TARTRATE 25 MG TABLET (FP) PO SCH (09:00)
[2018-11-22] MEDS: APIXABAN 2.5 MG TABLET PO SCH (09:00)
[2018-11-22] MEDS: MEROPENEM 1 GM in DEXTROSE 5%-WATER 100 ML IVPB SCH (09:00)
[2018-11-22] MEDS: BUDESONIDE/FORMETEROL FUMARATE 80/4.5 mcg INHALER IH SCH (09:01)
[2018-11-22] MEDS: PANTOPRAZOLE 40 MG TABLET (FP) PO SCH (09:01)
[2018-11-22] MEDS: INSULIN (LEVEMIR) 100 UNITS/ML UNITS SQ SCH (09:01)
[2018-11-22] MEDS: MAGNESIUM OXIDE 400 MG TABLET (FP) PO SCH (09:03)
[2018-11-22] MEDS: POLYETHYLENE GLYCOL 3350 119 GM BTL PO SCH (09:03)
[2018-11-22] MEDS ORDERED: INSULIN (LEVEMIR) 100 UNITS/ML UNITS SQ ONE (09:10)
[2018-11-22 09:19] LABS: PLATELET COUNT 236 K/MM3 (134-434)
[2018-11-22] MEDS ORDERED: INSULIN (NOVOLOG) ASPART 100 UNITS/ML 10ML VIAL ONE (11:05)
[2018-11-22] MEDS: BACITRACIN 15 GM TUBE TOPICAL OINTMENT TP SCH (11:42)
--- NOTE | 2018-11-22 12:23 | PN ---
Progress Note, Physician History of Present Illness: patient doing well no issues - Current Medication List Current Medications: Active Medications Acetaminophen (Tylenol -) 650 mg PO Q6H PRN PRN Reason: FEVER Last Admin: 11/20/18 13:38 Dose: 650 mg Albuterol/Ipratropium (Duoneb -) 1 amp NEB Q6H PRN PRN Reason: SHORTNESS OF BREATH Apixaban (Eliquis -) 2.5 mg PO BID [facility] Last Admin: 11/22/18 09:00 Dose: 2.5 mg Bacitracin (Bacitracin -) 1 applic TP BID [facility] Last Admin: 11/22/18 11:42 Dose: 1 applic Budesonide/Formoterol Fumarate (Symbicort 80/4.5mcg -) 2 puff IH BID [facility] Last Admin: 11/22/18 09:01 Dose: 2 puff Diphenhydramine HCl (Benadryl -) 25 mg PO Q6H PRN PRN Reason: FOR ITCHING Last Admin: 11/19/18 10:50 Dose: 25 mg Meropenem 1 gm/ Dextrose 100 mls @ 200 mls/hr IVPB BID [facility] Last Admin: 11/22/18 09:00 Dose: 200 mls/hr Insulin Aspart (Novolog Vial Sliding Scale -) 1 vial SQ ACHS [facility]; Protocol Last Admin: 11/22/18 11:11 Dose: 5 units Insulin Detemir (Levemir Vial) 25 units SQ BID [facility] Last Admin: 11/22/18 09:01 Dose: 25 units Magnesium Oxide (Mag-Ox -) 400 mg PO BID [facility] Last Admin: 11/22/18 09:03 Dose: 400 mg Metoprolol Tartrate (Lopressor -) 25 mg PO DAILY [facility] Last Admin: 11/22/18 09:00 Dose: 25 mg Nystatin (Mycostatin Cream -) 1 applic TP Q6HPO [facility] Last Admin: 11/22/18 11:42 Dose: 1 applic Pantoprazole Sodium (Protonix -) 40 mg PO DAILY [facility] Last Admin: 11/22/18 09:01 Dose: 40 mg Polyethylene Glycol (Miralax (For Daily Use) -) 17 gm PO DAILY [facility] Last Admin: 11/22/18 09:03 Dose: Not Given Zinc Acetate/Diphenhydramine (Benadryl 2% Cream) 1 applic TP DAILY [facility] Last Admin: 11/22/18 09:02 Dose: 1 applic - Objective Vital Signs: Vital Signs Temperature 97.7 F 11/22/18 08:10 Pulse Rate 80 11/22/18 08:10 Respiratory Rate 20 11/22/18 08:10 Blood Pressure 150/91 11/22/18 08:10 O2 Sat by Pulse Oximetry (%) 97 11/20/18 21:00 Constitutional: Yes: No Distress, Calm Cardiovascular: Yes: Regular Rate and Rhythm Respiratory: Yes: Regular, CTA Bilaterally Gastrointestinal: Yes: Normal Bowel Sounds, Soft Musculoskeletal: Yes: Other Extremities: Yes: Other Neurological: Yes: Alert, Oriented Psychiatric: Yes: Alert, Oriented Labs: CBC, BMP 11/22/18 05:30 11/22/18 05:30 INR, PTT INR 1.23 (0.83-1.09) H 11/13/18 17:48 Assessment/Plan Problem List - Problems (1) ARF (acute renal failure) Code(s): N17.9 - ACUTE KIDNEY FAILURE, UNSPECIFIED (2) Cellulitis Code(s): L03.90 - CELLULITIS, UNSPECIFIED Qualifiers: Site of cellulitis: unspecified site Qualified Code(s): L03.90 - Cellulitis , unspecified (3) Encephalopathy due to metabolic factor or toxin Code(s): [id number] - (4) Hyperglycemia Code(s): R73.9 - HYPERGLYCEMIA, UNSPECIFIED (5) Metabolic acidosis Code(s): E87.2 - ACIDOSIS (6) Morbid (severe) obesity due to excess calories Code(s): E66.01 - MORBID (SEVERE) OBESITY DUE TO EXCESS CALORIES (7) Polymorphic ventricular tachycardia Code(s): I47.2 - VENTRICULAR TACHYCARDIA (8) Sepsis Code(s): A41.9 - SEPSIS, UNSPECIFIED ORGANISM Qualifiers: Sepsis type: sepsis due to unspecified organism Qualified Code(s): A41.9 - Sepsis, unspecified organism (9) Afib Code(s): I48.91 - UNSPECIFIED ATRIAL FIBRILLATION Qualifiers: Atrial fibrillation type: paroxysmal Qualified Code(s): I48.0 - Paroxysmal atrial fibrillation (10) DM2 (diabetes mellitus, type 2) Code(s): E11.9 - TYPE 2 DIABETES MELLITUS WITHOUT COMPLICATIONS Qualifiers: Diabetes mellitus shelter insulin use: with shelter use Diabetes mellitus complication detail: with other circulatory complications (11) Fever Code(s): R50.9 - FEVER, UNSPECIFIED (12) HTN (hypertension) Code(s): I10 - ESSENTIAL (PRIMARY) HYPERTENSION (13) Ulcers of both lower extremities Code(s): L97.919 - NON-PRS CHRONIC ULC UNSP PRT OF R LOW LEG W UNSP SEVERITY; L97.929 - NON-PRS CHRONIC ULC UNSP PRT OF L LOW LEG W UNSP SEVERITY Qualifiers: Non-pressure ulcer stage: unspecified non-pressure ulcer stage Qualified Code(s): L97.919 - Non-pressure chronic ulcer of unspecified part of right lower leg with unspecified severity; L97.929 - Non-pressure chronic ulcer of unspecified part of left lower leg with unspecified severity; L97.929 - Non- pressure chronic ulcer of unspecified part of left lower leg with unspecified severity; L97.929 - Non-pressure chronic ulcer of unspecified part of left lower leg with unspecified severity; L97.929 - Non-pressure chronic ulcer of unspecified part of left lower leg with unspecified severity (14) Venous stasis Code(s): I87.8 - OTHER SPECIFIED DISORDERS OF VEINS Assessment/Plan Severe Sepsis - improving B/L LE cellulitis/infected ulcers s/p Acute respiratory failure AFIB DM morbid obesity Renal insufficiency NOVA Fever patient can be switched to clinda 300 mg po every 8 hourly for 5 more days wound care rest as per the team
--- NOTE | 2018-11-22 13:00 | DS ---
Physical Examination Vital Signs: Vital Signs Temperature 97.7 F 11/22/18 08:10 Pulse Rate 80 11/22/18 08:10 Respiratory Rate 20 11/22/18 08:10 Blood Pressure 150/91 11/22/18 08:10 O2 Sat by Pulse Oximetry (%) 97 11/20/18 21:00 Findings/Remarks: wants to go home refuses snf Cardiovascular: Yes: S1, S2 Respiratory: Yes: Regular, CTA Bilaterally Gastrointestinal: Yes: Normal Bowel Sounds, Soft Labs: CBC, BMP 11/22/18 05:30 11/22/18 05:30 Discharge Summary Reason For Visit: ULCERS OF BOTH LOWER EXTREMITIES,SEPSIS Current Active Problems ARF (acute renal failure) (Acute) Cellulitis (Acute) Drug rash (Acute) Encephalopathy due to metabolic factor or toxin (Acute) Hyperglycemia (Acute) Hyperkalemia (Acute) Metabolic acidosis (Acute) Morbid (severe) obesity due to excess calories (Acute) Polymorphic ventricular tachycardia (Acute) Renal failure (Acute) Sepsis (Acute) Toxic metabolic encephalopathy (Acute) Ventricular tachyarrhythmia (Acute) Hospital Course: - Problems (1) ARF (acute renal failure) Assessment/Plan: -Renal on board -IMPROVED--CR 0.9 -OUTPATIENT FOLLOW UP Code(s): N17.9 - ACUTE KIDNEY FAILURE, UNSPECIFIED (2) Cellulitis Assessment/Plan: -ID on board -Leukocytosis Improved -Meropenem to clinda -dressing to B/L lower extremity Code(s): L03.90 - CELLULITIS, UNSPECIFIED Qualifiers: Site of cellulitis: unspecified site Qualified Code(s): L03.90 - Cellulitis , unspecified (3) Encephalopathy due to metabolic factor or toxin Assessment/Plan: -improving Code(s): [id number] - (4) Morbid (severe) obesity due to excess calories Code(s): E66.01 - MORBID (SEVERE) OBESITY DUE TO EXCESS CALORIES (5) Sepsis Assessment/Plan: -ID on board Microbiology 11/13/18 17:48 Blood - Peripheral Venous Blood Culture - Final NO GROWTH AFTER 5 DAYS INCUBATION 11/13/18 17:48 Blood - Peripheral Venous Blood Culture - Final NO GROWTH AFTER 5 DAYS INCUBATION 11/13/18 21:45 Urine - Urine - Catheterized Urine Culture - Final NO GROWTH OBTAINED -Meropenem--Clinda Code(s): A41.9 - SEPSIS, UNSPECIFIED ORGANISM Qualifiers: Sepsis type: sepsis due to unspecified organism Qualified Code(s): A41.9 - Sepsis, unspecified organism (6) Afib Assessment/Plan: -Eliquis 5 bid -Controlled Code(s): I48.91 - UNSPECIFIED ATRIAL FIBRILLATION Qualifiers: Atrial fibrillation type: paroxysmal Qualified Code(s): I48.0 - Paroxysmal atrial fibrillation (7) DM2 (diabetes mellitus, type 2) Assessment/Plan: -BGM ACHS -ISS Code(s): E11.9 - TYPE 2 DIABETES MELLITUS WITHOUT COMPLICATIONS Qualifiers: 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 mellitus 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: with termite exterminator helper use Diabetes mellitus complication detail: with other circulatory complications (8) HTN (hypertension) Assessment/Plan: -Monitor Code(s): I10 - ESSENTIAL (PRIMARY) HYPERTENSION Condition: Improved - Instructions Diet, Activity, Other Instructions: follow up with your pcp this wek for bloods follow up with the wound care center Referrals: Onur Maxwell MD [Primary Care Provider] - 1 Week Disposition: VNS/HOME HEALTH CARE - Home Medications Comprehensive Discharge Medication List: Ambulatory Orders Budesonide/Formeterol Fumarate [SYMBICORT 80/4.5mcg -] 2 puff IH BID inhaler Insulin Sliding Scale [Novolog Vial Sliding Scale -] 1 vial SQ ACHS units 02/20 Pantoprazole Sodium [Protonix -] 40 mg PO DAILY tablet.ec 07/04/17 Gabapentin 300 mg PO DAILY 07/15/18 Insulin Glargine,Hum.rec.anlog [Isabel Webb] 300 unit SQ BID #15 insuln.pen 07/22/18 Metoprolol Tartrate [Lopressor -] 25 mg PO DAILY #30 tablet 07/22/18 Polyethylene Glycol 3350 [Miralax 119 gm Btl -] 17 gm PO DAILY bottle 07/22/18 Apixaban [Eliquis -] 5 mg PO BID #60 tablet 11/22/18 Bacitracin - [Bacitracin Topical Ointment -] 1 applic TP BID tube 11/22/18 Clindamycin [Cleocin -] 300 mg PO TID #15 capsule 11/22/18 Insulin (Levemir) [Levemir Vial] 25 units SQ BID units 11/22/18 Magnesium Oxide [Mag-Ox -] 400 mg PO BID tablet 11/22/18 Nystatin Cream [Mycostatin Cream -] 1 applic TP Q6HPO applic 11/22/18 Pantoprazole Sodium [Protonix -] 40 mg PO DAILY #30 tablet.ec 11/22/18
[2018-11-22] MEDS ORDERED: CLINDAMYCIN HCL 150 MG CAPSULE (FP) PO SCH (14:00)
--- NOTE | 2018-11-22 15:04 | PN ---
Progress Note, Physician History of Present Illness: Pt seen and examined at bedside. She is awake and alert. She denies shortness of breath. - Current Medication List Current Medications: Active Medications Acetaminophen (Tylenol -) 650 mg PO Q6H PRN PRN Reason: FEVER Last Admin: 11/20/18 13:38 Dose: 650 mg Albuterol/Ipratropium (Duoneb -) 1 amp NEB Q6H PRN PRN Reason: SHORTNESS OF BREATH Apixaban (Eliquis -) 5 mg PO BID [facility] Bacitracin (Bacitracin -) 1 applic TP BID [facility] Last Admin: 11/22/18 11:42 Dose: 1 applic Budesonide/Formoterol Fumarate (Symbicort 80/4.5mcg -) 2 puff IH BID [facility] Last Admin: 11/22/18 09:01 Dose: 2 puff Clindamycin HCl (Cleocin -) 300 mg PO TID [facility] Last Admin: 11/22/18 13:07 Dose: 300 mg Diphenhydramine HCl (Benadryl -) 25 mg PO Q6H PRN PRN Reason: FOR ITCHING Last Admin: 11/19/18 10:50 Dose: 25 mg Insulin Aspart (Novolog Vial Sliding Scale -) 1 vial SQ ACHS [facility]; Protocol Last Admin: 11/22/18 11:11 Dose: 5 units Insulin Detemir (Levemir Vial) 25 units SQ BID [facility] Last Admin: 11/22/18 09:01 Dose: 25 units Magnesium Oxide (Mag-Ox -) 400 mg PO BID [facility] Last Admin: 11/22/18 09:03 Dose: 400 mg Metoprolol Tartrate (Lopressor -) 25 mg PO DAILY [facility] Last Admin: 11/22/18 09:00 Dose: 25 mg Nystatin (Mycostatin Cream -) 1 applic TP Q6HPO [facility] Last Admin: 11/22/18 11:42 Dose: 1 applic Pantoprazole Sodium (Protonix -) 40 mg PO DAILY [facility] Last Admin: 11/22/18 09:01 Dose: 40 mg Polyethylene Glycol (Miralax (For Daily Use) -) 17 gm PO DAILY [facility] Last Admin: 11/22/18 09:03 Dose: Not Given Zinc Acetate/Diphenhydramine (Benadryl 2% Cream) 1 applic TP DAILY [facility] Last Admin: 11/22/18 09:02 Dose: 1 applic - Objective Vital Signs: Vital Signs Temperature 97.7 F 11/22/18 08:10 Pulse Rate 80 11/22/18 08:10 Respiratory Rate 20 11/22/18 08:10 Blood Pressure 150/91 11/22/18 08:10 O2 Sat by Pulse Oximetry (%) 97 11/20/18 21:00 Constitutional: Yes: Calm Eyes: Yes: Conjunctiva Clear HENT: Yes: Atraumatic Cardiovascular: Yes: S1, S2 Respiratory: Yes: CTA Bilaterally Gastrointestinal: Yes: Soft, Abdomen, Obese Genitourinary: Yes: WNL Edema: Yes Edema: LLE: Trace, RLE: Trace Neurological: Yes: Oriented Psychiatric: Yes: Oriented Labs: CBC, BMP 11/22/18 05:30 11/22/18 05:30 INR, PTT INR 1.23 (0.83-1.09) H 11/13/18 17:48 Problem List - Problems (1) ARF (acute renal failure) Code(s): N17.9 - ACUTE KIDNEY FAILURE, UNSPECIFIED (2) Cellulitis Code(s): L03.90 - CELLULITIS, UNSPECIFIED Qualifiers: Site of cellulitis: unspecified site Qualified Code(s): L03.90 - Cellulitis , unspecified (3) Encephalopathy due to metabolic factor or toxin Code(s): [id number] - (4) Hyperkalemia Code(s): E87.5 - HYPERKALEMIA (5) Metabolic acidosis Code(s): E87.2 - ACIDOSIS Assessment/Plan Current Medications Generic Name Dose Route Start Last Admin Trade Name Freq PRN Reason Stop Dose Admin Acetaminophen 650 mg 11/18/18 07:37 11/20/18 13:38 Tylenol - PO 650 mg Q6H PRN Administration FEVER Albuterol/Ipratropium 1 amp 11/17/18 21:10 Duoneb - NEB Q6H PRN SHORTNESS OF BREATH Apixaban 5 mg 11/22/18 22:00 Eliquis - PO BID LANCE Bacitracin 1 applic 11/17/18 12:15 11/22/18 11:42 Bacitracin - TP 1 applic BID LANCE Administration Budesonide/Formoterol Fumarate 2 puff 11/17/18 22:00 11/22/18 09:01 Symbicort 80/4.5mcg - IH 2 puff BID LANCE Administration Clindamycin HCl 300 mg 11/22/18 14:00 11/22/18 13:07 Cleocin - PO 300 mg TID LANCE Administration Diphenhydramine HCl 25 mg 11/18/18 07:44 11/19/18 10:50 Benadryl - PO 25 mg Q6H PRN Administration FOR ITCHING Insulin Aspart 1 vial 11/19/18 23:16 11/22/18 11:11 Novolog Vial Sliding Scale - SQ 5 units ACHS LANCE Administration Protocol Insulin Detemir 25 units 11/19/18 23:17 11/22/18 09:01 Levemir Vial SQ 25 units BID LANCE Administration Magnesium Oxide 400 mg 11/19/18 22:00 11/22/18 09:03 Mag-Ox - PO 400 mg BID LANCE Administration Metoprolol Tartrate 25 mg 11/18/18 10:00 11/22/18 09:00 Lopressor - PO 25 mg DAILY LANCE Administration Nystatin 1 applic 11/18/18 00:00 11/22/18 11:42 Mycostatin Cream - TP 1 applic Q6HPO LANCE Administration Pantoprazole Sodium 40 mg 11/18/18 10:00 11/22/18 09:01 Protonix - PO 40 mg DAILY LANCE Administration Polyethylene Glycol 17 gm 11/18/18 10:00 11/22/18 09:03 Miralax (For Daily Use) - PO Not Given DAILY LANCE Zinc Acetate/Diphenhydramine 1 applic 11/18/18 10:00 11/22/18 09:02 Benadryl 2% Cream TP 1 applic DAILY LANCE Administration Impression 1. NOVA 2. hyperkalemia 3. obesity 4. DM 5. a-fib 6. HTN 7. chronic lower extremity ulcers 8. gastritis 9. sepsis 10. hyperglycemia 11. metabolic acidosis Plan - renal function stable - outpt follow up - abx per primary team - pt shows renal recovery - HD was for NOVA, which is resolved - pt tolerating diet Dr Epstein
[2018-11-22 15:32] VITALS: BP 115/77; PULSE 84; TEMP 98.1
[2018-11-22] MEDS ORDERED: APIXABAN 5 MG TABLET PO SCH (22:00)
== END 2018-11-22 15:41 | disposition home health service (06) | DRG 720 ==
LOC: JER 17:17 → JERBED 19:15 → JICU 22:02 → J8W 11-17 20:15
PROVIDERS: ADMIT Internal Medicine; ATTEND Family Medicine
PROC: 02HV33Z Insertion of Infusion Device into Superior Vena Cava, Percutaneous Approach (ICD-10-PCS; principal; 2018-11-14)
PROC: B548ZZA Ultrasonography of Superior Vena Cava, Guidance (ICD-10-PCS; 2018-11-14)
DX: A41.9 Sepsis, unspecified organism (principal); N17.9 Acute kidney failure, unspecified; I47.2 Ventricular tachycardia; R65.21 Severe sepsis with septic shock; E66.01 Morbid (severe) obesity due to excess calories; G92 Toxic encephalopathy; E87.2 Acidosis; E87.5 Hyperkalemia; I48.0 Paroxysmal atrial fibrillation; Z68.43 Body mass index [BMI] 50.0-59.9, adult; E83.39 Other disorders of phosphorus metabolism; E11.65 Type 2 diabetes mellitus with hyperglycemia; L97.818 Non-pressure chronic ulcer of other part of right lower leg with other specified severity; L97.828 Non-pressure chronic ulcer of other part of left lower leg with other specified severity; I27.20 Pulmonary hypertension, unspecified; Z79.01 Long term (current) use of anticoagulants; I10 Essential (primary) hypertension; K76.0 Fatty (change of) liver, not elsewhere classified; E86.0 Dehydration; Z88.0 Allergy status to penicillin; Z79.4 Long term (current) use of insulin; Z91.14 Patient's other noncompliance with medication regimen; L03.116 Cellulitis of left lower limb; L03.115 Cellulitis of right lower limb; K29.60 Other gastritis without bleeding; I87.2 Venous insufficiency (chronic) (peripheral); F31.9 Bipolar disorder, unspecified; J45.909 Unspecified asthma, uncomplicated; L27.0 Generalized skin eruption due to drugs and medicaments taken internally; T50.995A Adverse effect of other drugs, medicaments and biological substances, initial encounter
CPT/HCPCS: 36415; 36600; 71045-TC-FY; 76775-TC; 76856-TC; 80048; 80053; 80162; 80307; 81003; 82009; 82140; 82272; 82375; 82436; 82550; 82553; 82565; 82803; 82962; 83036; 83050; 83605; 83735; 83880; 83930; 83935; 84100; 84300; 84484; 84540; 85025; 85027; 85610; 85730; 86704; 86706; 86803; 87040; 87086; 87340; 93005; 93010; 93306-TC; 94640; 97116-GP; 97161-GP; 99285-25; G0480; J0131; J1644; J7030

== ENCOUNTER 2019-02-07 23:52 | Inpatient (IN) | payer OTHER ==
--- NOTE | 2019-02-08 00:59 | PDOC ---
Attending Attestation - Resident Resident Name: Angely Constantino - ED Attending Attestation I have performed the following: I have examined & evaluated the patient, The case was reviewed & discussed with the resident, I agree w/resident's findings & plan - HPI HPI: 02/09/19 00:27 Lucero Ross is a 53yo woman with a PMH of a-fib on Eliquis, HTn, DM2, HLD , chronic BLE ulcers (not seeing wound care), noncompliance who was brought to the ED by her brother for several days of AMS. Her brother is unable to provide much useful history, stating that she's been confused "for days" and the pt does not provide any information. Pt has chronic wounds on her legs bilaterally and she has flies all over her wounds, currently flying all over our ER. - Physicial Exam PE: 02/09/19 00:28 Agree with resident exam. Pt has extensive wounds on both lower legs; beefy, red, open wounds. Pt has trench foot from the seepage from her legs down to her sock and her feet. Pt is afebrile. She is confused and mumbling. Pt is morbidly obese. - Medical Decision Making 02/08/19 07:[address] Taylor Pt needs ICU eval and admission
--- NOTE | 2019-02-08 01:09 | PDOC ---
History of Present Illness - General Chief Complaint: SIRS, Suspected/Possible Stated Complaint: WEAKNESS TO LEGS BILAT Time Seen by Provider: 02/08/19 00:58 - History of Present Illness Initial Comments: Lucero Ross is a 53yo woman with a PMH of a-fib on Eliquis, HTn, DM2, HLD , chronic BLE ulcers (not seeing wound care), noncompliance who was brought to the ED by her brother for several days of AMS. Her brother is unable to provide much useful history, stating that she's been confused "for days" and the pt does not provide any information. She was noted to have extremely malodorous, wet dressings on both legs with multiple flies. Past History - Past Medical History Allergies/Adverse Reactions: Allergies Allergy/AdvReac Type Severity Reaction Status Date / Time nut - unspecified Allergy Verified 11/13/18 21:32 Penicillins Allergy Verified 11/13/18 21:32 walnut Allergy Verified 11/13/18 21:32 Home Medications: Ambulatory Orders Budesonide/Formeterol Fumarate [SYMBICORT 80/4.5mcg -] 2 puff IH BID inhaler Insulin Sliding Scale [Novolog Vial Sliding Scale -] 1 vial SQ ACHS units 02/20 Pantoprazole Sodium [Protonix -] 40 mg PO DAILY tablet.ec 07/04/17 Gabapentin 300 mg PO DAILY 07/15/18 Insulin Glargine,Hum.rec.anlog [Toujeo Max Solostar] 300 unit SQ BID #15 insuln.pen 07/22/18 Metoprolol Tartrate [Lopressor -] 25 mg PO DAILY #30 tablet 07/22/18 Polyethylene Glycol 3350 [Miralax 119 gm Btl -] 17 gm PO DAILY bottle 07/22/18 Apixaban [Eliquis -] 5 mg PO BID #60 tablet 11/22/18 Bacitracin - [Bacitracin Topical Ointment -] 1 applic TP BID tube 11/22/18 Clindamycin HCl 300 mg PO TID #15 capsule 11/22/18 Insulin (Levemir) [Levemir Vial] 25 units SQ BID units 11/22/18 Magnesium Oxide [Mag-Ox -] 400 mg PO BID tablet 11/22/18 Nystatin Cream [Mycostatin Cream -] 1 applic TP Q6HPO applic 11/22/18 Pantoprazole Sodium [Protonix -] 40 mg PO DAILY #30 tablet.ec 11/22/18 Anemia: No Asthma: Yes Cardiac Disorders: Yes (A-fib) COPD: No DVT: No Diabetes: Yes (on insulin) GI Disorders: Yes (Gallstones, GERD) HTN: Yes Hypercholesterolemia: Yes Psychiatric Problems: Yes (bipolar) - Suicide/Smoking/Psychosocial Hx Smoking History: Former smoker Have you smoked in the past 12 months: No Number of Cigarettes Smoked Daily: 0 If you are a former smoker, when did you quit?: quit age 13 Hx Alcohol Use: No Drug/Substance Use Hx: No Substance Use Type: None Hx Substance Use Treatment: No Review of Systems - Review of Systems Comments:: Pt unresponsive, altered. Could not obtain *Physical Exam - Physical Exam Comments: General: Confused, agitated HEENT: Atraumatic, PERRL, EOMI, dry mouth and lips Cards: Tachycardic, regular, no murmur appreciated Pulm: Comfortable on room air, clear to auscultation on anterior/lateral exam Abd: Soft, nontender, nondistended Ext: BLE w/ malodorous, soaking bandages. Skin mascerated. Circumfrential ulcerated wounds. Skin: Normal color, no rashes or lesions Neuro: A&Ox3, CN grossly intact, normal speech, motor/sensory grossly intact and symmetric Psych: Mood appropriate to situation ED Treatment Course - LABORATORY CBC & Chemistry Diagram: 02/08/19 01:45 02/08/19 04:30 - ADDITIONAL ORDERS Additional order review: Laboratory Results 02/08/19 00:23 POC Glucometer 160 02/08/19 00:23 POC Glucometer 160 - RADIOLOGY Radiology Studies Ordered: Category Date Time Status CHEST X-RAY PORTABLE* [RAD] Stat Radiology 02/08/19 00:59 Ordered Medical Decision Making - Medical Decision Making 02/08/19 01:09 Lucero Ross is a 53yo woman with a PMH of a-fib on Eliquis, HTn, DM2, HLD , chronic BLE ulcers (not seeing wound care), noncompliance who was brought to the ED by her brother for several days of AMS. Her brother is unable to provide much useful history, stating that she's been confused "for days" and the pt does not provide any information. She was noted to have extremely malodorous, wet dressings on both legs with multiple flies. - Septic workup - Pt obviously confused, likely sepsis secondary to LE wounds - Very difficult IV placement. Multple attempts by nurse Emy and Dr Snell - Bandages to be removed w/ team, but pt currently noncompliant. Morphine ordered for pain, will attempt when pain improved 02/08/19 03:19 - Dressings removed. Circumfrential wounds to BLE, L>R. Wounds appear to be moldy. Extremely malodorous - Clean, dry dressings replaced - Labs notable for leukocytosis to 22. - Chemistry grossly hemolized; potassium unreliable. Needs to be repeated. Significant NOVA w/ Cr over 10 reported. Attempting to get repeat sample to verify but very hard stick - Will admit; microblog sent 02/08/19 04:31 - Spoke to GEOSPATIAL TECHNICIAN Meggan Sandoval. Requests that repeat chemistry be sent prior to discussion about admission - 2nd IV placed w/ Dr Uribe, repeat chemistry and ammonia level sent 02/08/19 05:32 - Lab reports additional chemistry also hemolized - Manager Environmental at bedside for repeat draw 02/08/19 05:56 - Lab called, VBG reported as pH 6.9. Inconsistent w/ clinical picture, will order ABG to re-evaluate - Chemistry pending 02/08/19 06:01 - EKG w/ a-fib w/ RVR, HR 107 - No documented a-fib previously - 10mg diltiazem ordered - Page to ICU for evaluation 02/08/19 06:24 - Chemistry w/ potassium 7.4. Insulin, dextrose, calcium ordered - ABG w/ pH 7.006, pCOD 18.5, pO2 122 - BUN 163, Cr 11.0 - Dr Lucian arauz, pt likely to need emergent dialysis 02/08/19 06:58 - Spoke to Dr Terry. Pt will need emergent dialysis. Requesting 3amps bicarb in D5 to be run at 150cc/hr - Second call to ICU for evaluation 02/08/19 07:13 - Spoke to resident Eliu Lazcano in the ICU, will accept. Plan to place trialysis catheter 02/08/19 07:37 - Medicine team at bedside for evaluation. Will be admitted to ICU on Dr Maxwell' s service Discussed with Dr Jojo Constantino PGY2 *DC/Admit/Observation/Transfer Diagnosis at time of Disposition: NOVA (acute kidney injury) Sepsis Qualifiers: Sepsis type: sepsis due to unspecified organism Sepsis acute organ dysfunction status: unspecified Qualified Code(s): A41.9 - Sepsis, unspecified organism - Discharge Dispostion Condition at time of disposition: Guarded Decision to Admit order: Yes - Referrals - Patient Instructions - Post Discharge Activity
[2019-02-08] MEDS ORDERED: morphine CARPU-JECT 4 MG/1 ML DISP.SYRIN IVPUSH ONE (01:40)
[2019-02-08 02:05] LABS: BASO % 0.2 % (0-2.0); EOS % 0.2 % (0-4.5); HEMATOCRIT 39.2 % (32.4-45.2); HEMOGLOBIN 11.9 GM/dL (10.7-15.3); LYMPH % 3.4 % (8-40); MCH 27.6 pg (25.7-33.7); MCHC 30.3 g/dl (32.0-36.0); MEAN CELL VOLUME 91.3 fl (80-96); MEAN PLT VOLUME 10.3 fl (7.5-11.1); MONO % 2.7 % (3.8-10.2); NEUT % 93.5 % (42.8-82.8); PLATELET COUNT 369 K/MM3 (134-434); RBC 4.29 M/mm3 (3.60-5.2); RDW 17.1 % (11.6-15.6); WHITE BLOOD COUNT 21.9 K/mm3 (4.0-10.0)
[2019-02-08] MEDS ORDERED: MORPHINE SULFATE 2 MG/ML VIAL ONE (02:09)
[2019-02-08] MEDS ORDERED: SODIUM CHLORIDE 0.9% 500 ML INFUS.BAG IV ONE ×3 (02:12→18:28)
[2019-02-08] MEDS ORDERED: CLINDAMYCIN 900 MG PREMIX IVPB 900 MG/50 ML BAG IVPB ONE ×2 (02:36→04:34)
[2019-02-08] MEDS ORDERED: VANCOMYCIN 1,000 MG in DEXTROSE 5%-WATER - 250 ML IVPB ONE (02:36)
[2019-02-08 02:46] LABS: ALBUMIN 3.2 g/dl (3.4-5.0); ALK PHOS 170 U/L (45-117); ANION GAP 12 MMOL/L (8-16); BILIRUBIN,TOTAL 0.3 mg/dL (0.2-1); CALCIUM 9.2 mg/dL (8.5-10.1); CHLORIDE 108 mmol/L (98-107); CO2 7 mmol/L (21-32); GLUCOSE,RANDOM 169 mg/dL (74-106); SGOT/AST 86 U/L (15-37); SGPT/ALT 36 U/L (13-61); SODIUM 127 mmol/L (136-145); TOT PROT 9.1 g/dl (6.4-8.2)
[2019-02-08 02:54] LABS: BLOOD UREA NITROGEN 169.8 mg/dL (7-18)
[2019-02-08 02:57] LABS: POTASSIUM > 10.0 mmol/L (3.5-5.1)
[2019-02-08 03:11] LABS: ANISOCYTOSIS 2+; MACROCYTOSIS 0; PLATELET ESTIMATE NORMAL
[2019-02-08] MEDS ORDERED: HALOPERIDOL LACTATE 5 MG/ML ONE (04:23)
[2019-02-08] MEDS ORDERED: LORazepam 2 MG/ML SDV VIAL ONE ×2 (04:23→16:36)
[2019-02-08] MEDS ORDERED: HALOPERIDOL LACTATE 5 MG/ML IM ONE (04:41)
[2019-02-08] MEDS ORDERED: VANCOMYCIN 1 GRAM (PRE-DOCKED) 1,000 MG/250 ML BAG IVPB ONE (04:46)
[2019-02-08] MEDS: IMIPENEM/CILASTATIN SODIUM 500 MG in SODIUM CHLORIDE 100 ML IVPB SCH ×2 (05:01→11:40)
[2019-02-08 05:44] LABS: VENOUS PC02 26.4 mmHg (38-52)
[2019-02-08 05:52] LABS: VENOUS PH 6.99 (7.31-7.41); VENOUS PO2 < 49 mmHg (28-48)
[2019-02-08 06:11] LABS: CALCIUM 8.9 mg/dL (8.5-10.1)
[2019-02-08 06:12] LABS: BLOOD UREA NITROGEN 163.2 mg/dL (7-18)
[2019-02-08 06:12] LABS: ARTERIAL BLD GAS O2 SATURATION 97.3 % (95-98); ARTERIAL BLOOD GAS BASE EXCESS -25.8 meq/l (-2-2); ARTERIAL BLOOD GAS PCO2 18.5 mmHg (35-45); ARTERIAL BLOOD GAS PO2 122 mmHg (80-100); CARBOXYHEMOGLOBIN 0.6 % (0-2)
[2019-02-08 06:13] LABS: POTASSIUM 7.4 mmol/L (3.5-5.1)
[2019-02-08] MEDS ORDERED: INSULIN REGULAR HUMAN 100 UNITS/ML *VIAL IVPUSH ONE (06:13)
[2019-02-08] MEDS ORDERED: DEXTROSE 50%-WATER - 25 GM/50 ML VIAL IVPUSH ONE (06:13)
[2019-02-08] MEDS ORDERED: CALCIUM GLUCONATE 10% - 1,000 MG/10 ML VIAL IVPB ONE (06:13)
[2019-02-08 06:16] LABS: ALLENS TEST POSITIVE; ARTERIAL BLOOD GAS pH 7.01 (7.35-7.45)
[2019-02-08] MEDS ORDERED: CALCIUM GLUCONATE 10% - 1,000 MG/10 ML VIAL ONE (06:19)
[2019-02-08] MEDS ORDERED: DEXTROSE 50%-WATER 25 GM/50 ML DISP.SYRIN ONE (06:20)
[2019-02-08 06:25] LABS: INR 1.32 (0.83-1.09); PROTHROMBIN TIME (PATIENT) 15.6 SEC (9.7-13.0)
[2019-02-08] MEDS ORDERED: SODIUM BICARBONATE 8.4% 50 MEQ/50 ML VIAL IV ONE (06:54)
[2019-02-08] MEDS ORDERED: DEXTROSE 5%-NORMAL SALINE 1,000 ML IV SCH (07:00)
--- NOTE | 2019-02-08 07:58 | HP ---
Admitting History and Physical - Primary Care Physician PCP: Onur Maxwell - Past Medical History Cardiovascular: Yes: AFIB, HTN Pulmonary: Yes: Asthma Gastrointestinal: Yes: Other (gallstones) Hepatobiliary: Yes: Cholelithiasis (passed without surgery), Other (fatty liver) Renal/: Yes: Renal Inusuff Heme/Onc: No: Anemia, B12 Deficiency, Bleeding Disorder, Cancer, Current Chemotherapy, Current Radiation Therapy, Hemochromatosis, Hypercoaguable State, Myeloproliferative Synd, Sickle Cell Disease, Sickle Cell Trait, Thrombocytopenia, Other Infectious Disease: Yes: Other (LE cellulitis) Psych: Yes: Bipolar Endocrine: Yes: Diabetes Mellitus Dermatology: Yes: Cellulitis (b/l LE with ulcerations) - Smoking History Smoking history: Former smoker Have you smoked in the past 12 months: No Aproximately how many cigarettes per day: 0 If you are a former smoker, when did you quit?: quit age 13 - Alcohol/Substance Use Hx Alcohol Use: No History of Substance Use: reports: Prescription (narcotics) - Social History ADL: Independent 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 History of Recent Travel: No Home Medications - Allergies Allergies/Adverse Reactions: Allergies Allergy/AdvReac Type Severity Reaction Status Date / Time nut - unspecified Allergy Verified 11/13/18 21:32 Penicillins Allergy Verified 11/13/18 21:32 walnut Allergy Verified 11/13/18 21:32 - Home Medications Home Medications: Ambulatory Orders Budesonide/Formeterol Fumarate [SYMBICORT 80/4.5mcg -] 2 puff IH BID inhaler Insulin Sliding Scale [Novolog Vial Sliding Scale -] 1 vial SQ ACHS units 02/20 Pantoprazole Sodium [Protonix -] 40 mg PO DAILY tablet.ec 07/04/17 Gabapentin 300 mg PO DAILY 07/15/18 Insulin Glargine,Hum.rec.anlog [Toujeo Max Solostar] 300 unit SQ BID #15 insuln.pen 07/22/18 Metoprolol Tartrate [Lopressor -] 25 mg PO DAILY #30 tablet 07/22/18 Polyethylene Glycol 3350 [Miralax 119 gm Btl -] 17 gm PO DAILY bottle 07/22/18 Apixaban [Eliquis -] 5 mg PO BID #60 tablet 11/22/18 Bacitracin - [Bacitracin Topical Ointment -] 1 applic TP BID tube 11/22/18 Clindamycin HCl 300 mg PO TID #15 capsule 11/22/18 Insulin (Levemir) [Levemir Vial] 25 units SQ BID units 11/22/18 Magnesium Oxide [Mag-Ox -] 400 mg PO BID tablet 11/22/18 Nystatin Cream [Mycostatin Cream -] 1 applic TP Q6HPO applic 11/22/18 Pantoprazole Sodium [Protonix -] 40 mg PO DAILY #30 tablet.ec 11/22/18 Family Disease History - Family Disease History Family Disease History: Other: Father ( age 50 CVA), Mother ( 82 ), Brother (stomach cancer), Sister (breast cancer) Physical Examination Vital Signs: Vital Signs Temperature 97.6 F 02/08/19 01:20 Pulse Rate 110 H 02/08/19 01:20 Respiratory Rate 22 H 02/08/19 01:20 Blood Pressure 125/104 H 02/08/19 01:20 O2 Sat by Pulse Oximetry (%) 95 02/08/19 01:20 Labs: CBC, BMP 02/08/19 01:45 02/08/19 04:30
--- NOTE | 2019-02-08 08:11 | CONSULT ---
Consultation: REQUESTING PROVIDER: Dr Terry CONSULT REQUEST: We have been asked to medically evaluate this patient for ( Emergent Dialysis). HISTORY OF PRESENT ILLNESS: Pt obtunded during exam. Information obtained from previous medical records. Pt is a 53 y/o F w a significant past medical history B/L LE chronic Venous stasis ulcerations, Chronic Afib on AC, HTN, poorly controlled T2DM, Dyslipedemia, Bipolar disorder, CKD (non-compliant with medications) who presented to [facility] via EMS 2/2 altered mental status. Per ED, pt's brother at bedside endorsing pt has been confused for past several days; brother unable to provide further history. No family at bedside at time of examination. ICU team consulted as pt requiring emergent dialysis as pt found to have acute renal failure with hyperkalemia, acidosis and uremia. REVIEW OF SYSTEMS: Unable to obtain secondary to pt's mental status. PHYSICAL EXAMINATION Vital Signs - 24 hr 02/08/19 02/08/19 00:57 01:20 Temperature 97.6 F Pulse Rate 110 H Respiratory 22 H Rate Blood Pressure 125/104 H O2 Sat by Pulse 97 95 Oximetry (%) GENERAL: Obtunded HEAD: Normal with no signs of trauma. EARS, NOSE, THROAT: Dry mucous membranes. LUNGS: Coarse breath sounds b/l. HEART: RRR ABDOMEN: Soft, Obese LOWER EXTREMITIES: b/l venous ulcerations, oozing. NEUROLOGICAL: Obtunded SKIN: Venous stasis ulcers b/l lower extremities. Laboratory Results - last 24 hr 02/08/19 02/08/19 02/08/19 00:23 00:59 01:45 WBC RBC Hgb Hct MCV MCH MCHC RDW Plt Count MPV Absolute Neuts (auto) Neutrophils % Neutrophils % (Manual) Band Neutrophils % Lymphocytes % Lymphocytes % (Manual) Monocytes % Monocytes % (Manual) Eosinophils % Eosinophils % (Manual) Basophils % Basophils % (Manual) Myelocytes % (Man) Promyelocytes % (Man) Blast Cells % (Manual) Nucleated RBC % Metamyelocytes Hypochromia Platelet Estimate Polychromasia Poikilocytosis Anisocytosis Microcytosis Macrocytosis ESR PT with INR INR PTT (Actin FS) Puncture Site ABG pH ABG pCO2 at Pt Temp ABG pO2 at Pt Temp ABG HCO3 ABG O2 Sat (Measured) ABG O2 Content ABG Base Excess Kwesi Test VBG pH POC VBG pCO2 POC VBG pO2 VBG HCO3 VBG O2 Sat (Macho) VBG Base Excess Carboxyhemoglobin Methemoglobin Oxygen Flow Rate Sodium Potassium Chloride Carbon Dioxide Anion Gap BUN Creatinine Est GFR (CKD-EPI)AfAm Est GFR (CKD-EPI)NonAf POC Glucometer 160 Random Glucose Lactic Acid Calcium Total Bilirubin AST ALT Alkaline Phosphatase Ammonia Troponin I < 0.02 C-Reactive Protein 5.0 H B-Natriuretic Peptide Total Protein Albumin 02/08/19 02/08/19 02/08/19 01:45 01:45 01:45 WBC 21.9 H RBC 4.29 Hgb 11.9 Hct 39.2 D MCV 91.3 MCH 27.6 MCHC 30.3 L RDW 17.1 H Plt Count 369 D MPV 10.3 Absolute Neuts (auto) 20.5 H Neutrophils % 93.5 H Neutrophils % (Manual) 84.1 H Band Neutrophils % 6.5 Lymphocytes % 3.4 L D Lymphocytes % (Manual) 6.6 L D Monocytes % 2.7 L Monocytes % (Manual) 0 L Eosinophils % 0.2 D Eosinophils % (Manual) 0.0 Basophils % 0.2 Basophils % (Manual) 0.0 Myelocytes % (Man) 3 H D Promyelocytes % (Man) 0 Blast Cells % (Manual) 0 Nucleated RBC % 0 Metamyelocytes 0 Hypochromia 0 Platelet Estimate Normal Polychromasia 0 Poikilocytosis 1+ Anisocytosis 2+ Microcytosis 2+ Macrocytosis 0 ESR 74 H PT with INR INR PTT (Actin FS) Puncture Site ABG pH ABG pCO2 at Pt Temp ABG pO2 at Pt Temp ABG HCO3 ABG O2 Sat (Measured) ABG O2 Content ABG Base Excess Kwesi Test VBG pH POC VBG pCO2 POC VBG pO2 VBG HCO3 VBG O2 Sat (Macho) VBG Base Excess Carboxyhemoglobin Methemoglobin Oxygen Flow Rate Sodium 127 L Potassium > 10.0 H* Chloride 108 H Carbon Dioxide 7 L Anion Gap 12 BUN 169.8 H* Creatinine 11.0 H* Est GFR (CKD-EPI)AfAm 4.04 Est GFR (CKD-EPI)NonAf 3.49 POC Glucometer Random Glucose 169 H Lactic Acid Calcium 9.2 Total Bilirubin 0.3 AST 86 H ALT 36 Alkaline Phosphatase 170 H Ammonia Troponin I C-Reactive Protein B-Natriuretic Peptide Total Protein 9.1 H Albumin 3.2 L 02/08/19 02/08/19 02/08/19 01:45 01:45 04:30 WBC RBC Hgb Hct MCV MCH MCHC RDW Plt Count MPV Absolute Neuts (auto) Neutrophils % Neutrophils % (Manual) Band Neutrophils % Lymphocytes % Lymphocytes % (Manual) Monocytes % Monocytes % (Manual) Eosinophils % Eosinophils % (Manual) Basophils % Basophils % (Manual) Myelocytes % (Man) Promyelocytes % (Man) Blast Cells % (Manual) Nucleated RBC % Metamyelocytes Hypochromia Platelet Estimate Polychromasia Poikilocytosis Anisocytosis Microcytosis Macrocytosis ESR PT with INR INR PTT (Actin FS) Puncture Site ABG pH ABG pCO2 at Pt Temp ABG pO2 at Pt Temp ABG HCO3 ABG O2 Sat (Measured) ABG O2 Content ABG Base Excess Kwesi Test VBG pH POC VBG pCO2 POC VBG pO2 VBG HCO3 VBG O2 Sat (Macho) VBG Base Excess Carboxyhemoglobin Methemoglobin Oxygen Flow Rate Sodium 136 Potassium 7.4 H* Chloride 112 H Carbon Dioxide 7 L Anion Gap 17 H BUN 163.2 H* Creatinine 11.0 H* Est GFR (CKD-EPI)AfAm 4.04 Est GFR (CKD-EPI)NonAf 3.49 POC Glucometer Random Glucose 177 H Lactic Acid 2.0 Calcium 8.9 Total Bilirubin AST ALT Alkaline Phosphatase Ammonia Troponin I C-Reactive Protein B-Natriuretic Peptide 1479.5 H Total Protein Albumin 02/08/19 02/08/19 02/08/19 04:30 05:30 05:30 WBC RBC Hgb Hct MCV MCH MCHC RDW Plt Count MPV Absolute Neuts (auto) Neutrophils % Neutrophils % (Manual) Band Neutrophils % Lymphocytes % Lymphocytes % (Manual) Monocytes % Monocytes % (Manual) Eosinophils % Eosinophils % (Manual) Basophils % Basophils % (Manual) Myelocytes % (Man) Promyelocytes % (Man) Blast Cells % (Manual) Nucleated RBC % Metamyelocytes Hypochromia Platelet Estimate Polychromasia Poikilocytosis Anisocytosis Microcytosis Macrocytosis ESR PT with INR 15.60 H INR 1.32 H PTT (Actin FS) 35.2 Puncture Site ABG pH ABG pCO2 at Pt Temp ABG pO2 at Pt Temp ABG HCO3 ABG O2 Sat (Measured) ABG O2 Content ABG Base Excess Kwesi Test VBG pH POC VBG pCO2 POC VBG pO2 VBG HCO3 VBG O2 Sat (Macho) VBG Base Excess Carboxyhemoglobin Methemoglobin Oxygen Flow Rate Sodium Potassium Chloride Carbon Dioxide Anion Gap BUN Creatinine Est GFR (CKD-EPI)AfAm Est GFR (CKD-EPI)NonAf POC Glucometer Random Glucose Lactic Acid Calcium Total Bilirubin AST ALT Alkaline Phosphatase Ammonia 54.50 H Troponin I C-Reactive Protein B-Natriuretic Peptide Total Protein Albumin 02/08/19 02/08/19 05:30 05:54 WBC RBC Hgb Hct MCV MCH MCHC RDW Plt Count MPV Absolute Neuts (auto) Neutrophils % Neutrophils % (Manual) Band Neutrophils % Lymphocytes % Lymphocytes % (Manual) Monocytes % Monocytes % (Manual) Eosinophils % Eosinophils % (Manual) Basophils % Basophils % (Manual) Myelocytes % (Man) Promyelocytes % (Man) Blast Cells % (Manual) Nucleated RBC % Metamyelocytes Hypochromia Platelet Estimate Polychromasia Poikilocytosis Anisocytosis Microcytosis Macrocytosis ESR PT with INR INR PTT (Actin FS) Puncture Site Right brachial ABG pH 7.01 L* ABG pCO2 at Pt Temp 18.5 L ABG pO2 at Pt Temp 122 H ABG HCO3 4.4 L ABG O2 Sat (Measured) 97.3 ABG O2 Content 15.2 ABG Base Excess -25.8 L Kewsi Test Positive VBG pH 6.99 L* POC VBG pCO2 26.4 L POC VBG pO2 < 49 H VBG HCO3 6.1 L VBG O2 Sat (Macho) 41.8 L VBG Base Excess -24.4 L Carboxyhemoglobin 0.6 Methemoglobin < 1.0 Oxygen Flow Rate Room air Sodium Potassium Chloride Carbon Dioxide Anion Gap BUN Creatinine Est GFR (CKD-EPI)AfAm Est GFR (CKD-EPI)NonAf POC Glucometer Random Glucose Lactic Acid Calcium Total Bilirubin AST ALT Alkaline Phosphatase Ammonia Troponin I C-Reactive Protein B-Natriuretic Peptide Total Protein Albumin Active Medications Generic Name Dose Route Start Last Admin Trade Name Freq PRN Reason Stop Dose Admin Imipenem/Cilastatin Sodium 500 100 mls @ 100 mls/hr 02/08/19 02:45 02/08/19 05:01 mg/ Sodium Chloride IVPB 100 mls/hr Q8H-IV LANCE Administration Protocol Dextrose/Sodium Chloride 1,000 mls @ 150 mls/hr 02/08/19 07:00 D5-Ns - IV ASDIR LANCE Sodium Bicarbonate 150 meq/ 1,000 mls @ 150 mls/hr 02/08/19 08:15 Dextrose IV ASDIR LANCE ASSESSMENT/PLAN: Pt is a 53 y/o F w a significant past medical history B/L LE chronic Venous stasis ulcerations, Chronic Afib on AC, HTN, poorly controlled T2DM, Dyslipedemia, Bipolar disorder, CKD (non-compliant with medications) who presented to [facility] via EMS 2/2 altered mental status. #RENAL: Acute Renal failure with emergent need for dialysis -Bun/Cr 169.8/11.0 - PH 7.01 - Trialysis Cath inserted by and Dr Andre. Chest XRAY confirms proper placement. - Dr Terry on board- Will dialyze patient today in ICU. -Bicarb gtt per renal - Pt currently on Levophed 30 and Vasopressin #CARDIO: EKG w/ a-fib w/ RVR, HR 107 -Pt given Diltiazem in ED. -On Metoprolol Tartrate 25 Daily -Tele monitoring -Keep MAP > 65 -Repeat labs 2H post Dialysis #ID- Sepsis likely 2/2 LE Wound Ulcers WBC- 21.9, Lactic Acid 2.4 Urine and Blood Cultures Pending -ID on board. Pt received 1 gram Vanco. Now on standing Merrem. Also received 1 dose Capsofungin. #FEN D5 NS@150cc/hr Monitor Electroyltes NPO #DVT px: HEPSQTID #Dispo: ICU Dispo: We will continue to follow the patient. Thank you for this consultative opportunity. Visit type - Emergency Visit Emergency Visit: Yes ED Registration Date: 02/08/19 Care time: The patient presented to the Emergency Department on the above date and was hospitalized for further evaluation of their emergent condition. - New Patient This patient is new to me today: Yes Date on this admission: 02/08/19 - Critical Care Critical Care patient: Yes Total Critical Care Time (in minutes): 35 Critical Care Statement: The care of this patient involved high complexity decision making to prevent further life threatening deterioration of the patient 's condition and/or to evaluate & treat vital organ system(s) failure or risk of failure. ATTENDING PHYSICIAN STATEMENT I saw and evaluated the patient. I reviewed the resident's note and discussed the case with the resident. I agree with the resident's findings and plan as documented. SUBJECTIVE: OBJECTIVE: ASSESSMENT AND PLAN:
[2019-02-08] MEDS ORDERED: SODIUM BICARBONATE IV SCH (08:15)
[2019-02-08] MEDS ORDERED: WATER IV SCH (08:15)
[2019-02-08] MEDS ORDERED: SODIUM BICARBONATE 8.4% - 150 MEQ in DEXTROSE 5%-WATER - 850 ML IV SCH (08:15)
[2019-02-08] MEDS ORDERED: DEXTROSE IV SCH (08:15)
--- NOTE | 2019-02-08 08:21 | HP ---
Admitting History and Physical - Primary Care Physician PCP: Onur Maxwell - Admission Chief Complaint: not able to obtain and information from patient History of Present Illness: 53yo woman with a PMH of a-fib on Eliquis, HTn, DM2, HLD, chronic BLE ulcers ( not seeing wound care), noncompliance who was brought to the ED by her brother for several days of AMS. Her brother is unable to provide much useful history, stating that she's been confused "for days" and the pt does not provide any information. She was noted to have extremely malodorous, wet dressings on both legs with multiple flies. All information received from ED resident-pt not able to provide history and no family is present History Source: Medical Record Limitations to Obtaining History: Unresponsive - Past Medical History Cardiovascular: Yes: AFIB, HTN Pulmonary: Yes: Asthma Gastrointestinal: Yes: Other (gallstones) Hepatobiliary: Yes: Cholelithiasis (passed without surgery), Other (fatty liver) Renal/: Yes: Renal Inusuff Heme/Onc: No: Anemia, B12 Deficiency, Bleeding Disorder, Cancer, Current Chemotherapy, Current Radiation Therapy, Hemochromatosis, Hypercoaguable State, Myeloproliferative Synd, Sickle Cell Disease, Sickle Cell Trait, Thrombocytopenia, Other Infectious Disease: Yes: Other (LE cellulitis) Psych: Yes: Bipolar Endocrine: Yes: Diabetes Mellitus Dermatology: Yes: Cellulitis (b/l LE with ulcerations) - Smoking History Smoking history: Former smoker Have you smoked in the past 12 months: No Aproximately how many cigarettes per day: 0 If you are a former smoker, when did you quit?: quit age 13 - Alcohol/Substance Use Hx Alcohol Use: No History of Substance Use: reports: Prescription (narcotics) - Social History ADL: Independent 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 History of Recent Travel: No Home Medications - Allergies Allergies/Adverse Reactions: Allergies Allergy/AdvReac Type Severity Reaction Status Date / Time nut - unspecified Allergy Verified 02/08/19 09:45 Penicillins Allergy Verified 02/08/19 09:45 walnut Allergy Verified 02/08/19 09:45 - Home Medications Home Medications: Ambulatory Orders Budesonide/Formeterol Fumarate [SYMBICORT 80/4.5mcg -] 2 puff IH BID inhaler Insulin Sliding Scale [Novolog Vial Sliding Scale -] 1 vial SQ ACHS units 02/20 Pantoprazole Sodium [Protonix -] 40 mg PO DAILY tablet.ec 07/04/17 Gabapentin 300 mg PO DAILY 07/15/18 Insulin Glargine,Hum.rec.anlog [Toujuan Max Solostar] 300 unit SQ BID #15 insuln.pen 07/22/18 Metoprolol Tartrate [Lopressor -] 25 mg PO DAILY #30 tablet 07/22/18 Polyethylene Glycol 3350 [Miralax 119 gm Btl -] 17 gm PO DAILY bottle 07/22/18 Apixaban [Eliquis -] 5 mg PO BID #60 tablet 11/22/18 Bacitracin - [Bacitracin Topical Ointment -] 1 applic TP BID tube 11/22/18 Clindamycin HCl 300 mg PO TID #15 capsule 11/22/18 Insulin (Levemir) [Levemir Vial] 25 units SQ BID units 11/22/18 Magnesium Oxide [Mag-Ox -] 400 mg PO BID tablet 11/22/18 Nystatin Cream [Mycostatin Cream -] 1 applic TP Q6HPO applic 11/22/18 Pantoprazole Sodium [Protonix -] 40 mg PO DAILY #30 tablet.ec 11/22/18 Family Disease History - Family Disease History Family History: Unable to Obtain (to obtain from pt/ontained from family) Family Disease History: Other: Father ( age 50 CVA), Mother ( 82 ), Brother (stomach cancer), Sister (breast cancer) Review of Systems Unable to obtain ROS, reason: not able to obtain Physical Examination Vital Signs: Vital Signs Temperature 97.6 F 02/08/19 01:20 Pulse Rate 110 H 02/08/19 01:20 Respiratory Rate 22 H 02/08/19 01:20 Blood Pressure 125/104 H 02/08/19 01:20 O2 Sat by Pulse Oximetry (%) 95 02/08/19 01:20 Constitutional: Yes: Moderate Distress, Obese, Pallor Eyes: Yes: WNL, Conjunctiva Clear, EOM Intact HENT: Yes: WNL, Atraumatic, Normocephalic, Drooling, Other (mucosa dry with white coating around lips) Neck: Yes: WNL, Supple, Trachea Midline Cardiovascular: Yes: WNL, Regular Rate and Rhythm Respiratory: Yes: WNL, Regular, CTA Bilaterally Gastrointestinal: Yes: Normal Bowel Sounds, Soft, Abdomen, Obese ...Rectal Exam: Yes: Deferred Renal/: Yes: WNL Breast(s): Yes: Other (fungal rash under both breasts) Musculoskeletal: Yes: Other Extremities: Yes: Erythema, Other (open wounds to BL LE draining malodorous with flies on skin. Skin flaking off onto bed) Edema: Yes Edema: LUE: 4+, RUE: 4+, LLE: 4+, RLE: 4+ Peripheral Pulses WNL: No Peripheral Pulses: Left Radial: 1+, Right Radial: 1+, Left Doralis Pedis: 1+, Right Dorsalis Pedis: 1+, Left Femoral: 1+, Right Femoral: 1+ Integumentary: Yes: Erythema, Rash, Skin Tear, Other Wound/Incision: Yes: Dressing Removed (malodorus drainage soaked through to several layers of gauze and cling) Neurological: Yes: Confusion, Other (responds tpverbal stimule) ...Motor Strength: WNL Labs: CBC, BMP 02/08/19 01:45 02/08/19 04:30 Imaging - Results Chest X-ray: Image Reviewed (incfreased interstital markings) EKG: Report Reviewed (RBBB, AF Qtc 446), Image Reviewed Problem List - Problems (1) Bilateral leg ulcer Assessment/Plan: chronic leg wounds, draining patient followed in would clinic in the past Code(s): L97.919 - NON-PRS CHRONIC ULC UNSP PRT OF R LOW LEG W UNSP SEVERITY; L97.929 - NON-PRS CHRONIC ULC UNSP PRT OF L LOW LEG W UNSP SEVERITY (2) NOVA (acute kidney injury) Assessment/Plan: Cr 11.5 emergent dialysis planned appreciate consultation w/ Dr Harrison Rodriguez gtt started in ED CMP q 2H until dialysis cuevas placed for strict I&Os avoid nephrotoxic agents Code(s): N17.9 - ACUTE KIDNEY FAILURE, UNSPECIFIED (3) Sepsis Assessment/Plan: WBC 21.9, LA 2.4 ID consultation requested Vanco & meropenem given Code(s): A41.9 - SEPSIS, UNSPECIFIED ORGANISM Qualifiers: Sepsis type: sepsis due to unspecified organism Sepsis acute organ dysfunction status: unspecified Qualified Code(s): A41.9 - Sepsis, unspecified organism (4) Afib Assessment/Plan: c/w metoprolol if BP tolerates Code(s): I48.91 - UNSPECIFIED ATRIAL FIBRILLATION Qualifiers: Atrial fibrillation type: paroxysmal Qualified Code(s): I48.0 - Paroxysmal atrial fibrillation (5) Cellulitis Assessment/Plan: consult wound center Code(s): L03.90 - CELLULITIS, UNSPECIFIED Qualifiers: Site of cellulitis: unspecified site Qualified Code(s): L03.90 - Cellulitis , unspecified (6) DM2 (diabetes mellitus, type 2) Assessment/Plan: BGM AC/qHS with novolog sliding scale Hgb A1C ordered Code(s): E11.9 - TYPE 2 DIABETES MELLITUS WITHOUT COMPLICATIONS Qualifiers: Diabetes mellitus 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 insulin use: with intermediate use Diabetes mellitus complication detail: with other circulatory complications (7) Electrolyte abnormality Assessment/Plan: emergent dialysis planned Code(s): E87.8 - OTH DISORDERS OF ELECTROLYTE AND FLUID BALANCE, NEC (8) HTN (hypertension) Code(s): I10 - ESSENTIAL (PRIMARY) HYPERTENSION (9) Hyperkalemia Assessment/Plan: K 7.5 dextrose, insulin, bicarb given in ED c/w bicarb gtt until dialyzed Code(s): E87.5 - HYPERKALEMIA (10) Morbid obesity Code(s): E66.01 - MORBID (SEVERE) OBESITY DUE TO EXCESS CALORIES (11) Metabolic encephalopathy Assessment/Plan: emergent dialysis Code(s): G93.41 - METABOLIC ENCEPHALOPATHY Visit type - Emergency Visit Emergency Visit: Yes ED Registration Date: 02/08/19 Care time: The patient presented to the Emergency Department on the above date and was hospitalized for further evaluation of their emergent condition. - New Patient This patient is new to me today: Yes Date on this admission: 02/08/19 - Critical Care Critical Care patient: Yes Total Critical Care Time (in minutes): 35 Critical Care Statement: The care of this patient involved high complexity decision making to prevent further life threatening deterioration of the patient 's condition and/or to evaluate & treat vital organ system(s) failure or risk of failure.
--- NOTE | 2019-02-08 08:51 | CONSULT ---
Consult - text type - Consultation Consultation Note: Renal coverage for Dr. Epstein Consult for Acute renal failure and hyperkalemia This is a 53 year old woman with history of Afib on Eliquis, hypertension, hyperlipidemia, LE ulcers, history of acute renal failure requiring dialysis presented to the ED brought in by her family for AMS and found to have acute renal failure with hyperkalemia, acidosis and uremia. Pt is altered and cannot provide any history. Was brought in by her brother. Attempted to contact brother by phone regarding the patient and no answer. Currently in the ICU, lethagic. BP stable. HR is elevated. On bicarb gtt. PMhx: as above Allergies: NKDA Family Hx: NC Social Hx: No T/A/D ROS: as per HPI, all other ros negative Home Medications Medication Instructions Recorded Budesonide/Formeterol Fumarate 2 puff IH BID inhaler 02/20/17 [SYMBICORT 80/4.5mcg -] Insulin Sliding Scale [Novolog 1 vial SQ ACHS units 02/20/17 Vial Sliding Scale -] Pantoprazole Sodium [Protonix -] 40 mg PO DAILY tablet.ec 07/04/17 Gabapentin 300 mg PO DAILY 07/15/18 Insulin Glargine,Hum.rec.anlog 300 unit SQ BID #15 insuln.pen 07/22/18 [Toujeo Max Solostar] Metoprolol Tartrate [Lopressor -] 25 mg PO DAILY #30 tablet 07/22/18 Polyethylene Glycol 3350 [Miralax 17 gm PO DAILY bottle 07/22/18 119 gm Btl -] Apixaban [Eliquis -] 5 mg PO BID #60 tablet 11/22/18 Bacitracin - [Bacitracin Topical 1 applic TP BID tube 11/22/18 Ointment -] Clindamycin HCl 300 mg PO TID #15 capsule 11/22/18 Insulin (Levemir) [Levemir Vial] 25 units SQ BID units 11/22/18 Magnesium Oxide [Mag-Ox -] 400 mg PO BID tablet 11/22/18 Nystatin Cream [Mycostatin Cream -] 1 applic TP Q6HPO applic 11/22/18 Pantoprazole Sodium [Protonix -] 40 mg PO DAILY #30 tablet.ec 11/22/18 Vital Signs Temperature 97.1 F L 02/08/19 08:36 Pulse Rate 118 H 02/08/19 08:36 Respiratory Rate 26 H 02/08/19 08:36 Blood Pressure 154/106 H 02/08/19 08:36 O2 Sat by Pulse Oximetry (%) 100 02/08/19 08:15 Intake & Output 02/05/19 02/06/19 02/07/19 02/08/19 23:59 23:59 23:59 23:59 Weight 142.882 kg Lethargic eyes closed, not responsive to verbal of physical stimuli neck supple tachycardic, no murmur Dec BS, no rales Obese, NT/ND, no overt bladder distension + LE edema, chronic wounds on both legs CBC, BMP 02/08/19 01:45 02/08/19 04:30 Laboratory Tests 11/16/18 11/16/18 02/08/19 05:23 05:23 01:45 Calcium 7.8 L Phosphorus 2.3 L Magnesium 1.7 L Ammonia B-Natriuretic Peptide 1479.5 H 02/08/19 02/08/19 04:30 04:30 Calcium 8.9 Phosphorus Magnesium Ammonia 54.50 H B-Natriuretic Peptide Current Medications Budesonide/Formoterol Fumarate (Symbicort 80/4.5mcg -) 2 puff IH BID LANCE Chlorhexidine Gluconate (Hibiclens For Decolonization -) 1 applic TP HS LANCE Gabapentin (Neurontin -) 300 mg PO DAILY [facility] Imipenem/Cilastatin Sodium 500 (mg/ Sodium Chloride) 100 mls @ 100 mls/hr IVPB Q8H-IV LANCE; Protocol Last Admin: 02/08/19 05:01 Dose: 100 mls/hr Sodium Bicarbonate 150 meq/ (Dextrose) 1,000 mls @ 150 mls/hr IV ASDIR LANCE Last Admin: 02/08/19 08:32 Dose: 150 mls/hr Insulin Aspart (Novolog Vial Sliding Scale -) 1 vial SQ ACHS [facility]; Protocol Metoprolol Tartrate (Lopressor -) 25 mg PO DAILY [facility] Mupirocin (Bactroban Ointment (For Decolonization) -) 1 applic NS BID [facility] Stop: 02/13/19 09:59 Nystatin (Mycostatin Cream -) 1 applic TP Q6HPO [facility] Pantoprazole Sodium (Protonix -) 40 mg PO DAILY LANCE 53 year old woman with history of Afib on Eliquis, hypertension, hyperlipidemia , LE ulcers, history of acute renal failure requiring dialysis presented to the ED brought in by her family for AMS and found to have acute renal failure with hyperkalemia, acidosis and uremia. 1. Acute Renal failure with emergent need for dialysis 2. Hyperkalemia 3. Metabolic acidosis 4. Suspected sepsis 5. Altered Mental status Will need emergent dialysis in the ICU. Continue bicarb gtt at 150cc per hour. Repeat labs Q2h until pt gets dialysis. keep MAP > 65 Trend Ca/Phos levels Insert cuevas for strict I and O ICU monitoing prognosis is guarded Khoa Terry DO
[2019-02-08] MEDS ORDERED: SODIUM CHLORIDE 250 ML IV PRN ×3 (09:39→23:57)
[2019-02-08] MEDS ORDERED: MUPIROCIN 2% TOPICAL OINTMENT FOR DECOLONIZATION NS SCH (10:00)
[2019-02-08] MEDS ORDERED: LORazepam 2 MG/ML SDV VIAL IVPUSH ONE ×2 (10:00→16:39)
[2019-02-08] MEDS: METOPROLOL TARTRATE 25 MG TABLET (FP) PO SCH (10:16)
[2019-02-08] MEDS: GABAPENTIN 300 MG CAPSULE (FP) PO SCH (10:16)
[2019-02-08] MEDS: PANTOPRAZOLE 40 MG TABLET (FP) PO SCH (10:17)
[2019-02-08] MEDS: MUPIROCIN 2% TOPICAL OINTMENT FOR DECOLONIZATION NS SCH ×2 (10:17→22:24)
[2019-02-08] MEDS: BUDESONIDE/FORMETEROL FUMARATE 80/4.5 mcg INHALER IH SCH ×2 (10:17→22:25)
[2019-02-08] MEDS ORDERED: PT OWN MED DRAWER 7, Y5N ONE ×3 (10:19→14:41)
--- NOTE | 2019-02-08 10:20 | PN ---
Teaching Attending Note Name of Resident: Eliu Lazcano ATTENDING PHYSICIAN STATEMENT I saw and evaluated the patient. I reviewed the resident's note and discussed the case with the resident. I agree with the resident's findings and plan as documented. SUBJECTIVE: Patient seen and examined in the ICU. Lethargic and agitated. Not able to provide a history. NOK spoken to and HD catheter will be inserted for access for acute HD due to ARF/severe hyperkalemia. Intake & Output 02/05/19 02/06/19 02/07/19 02/08/19 23:59 23:59 23:59 23:59 Output Total 6 Balance -6 Weight 276 lb 10.882 oz Last Vital Signs Temp Pulse Resp BP Pulse Ox 97.6 F 118 H 26 H 123/92 98 02/08/19 10:08 02/08/19 09:46 02/08/19 09:46 02/08/19 09:46 02/08/19 09:46 Active Medications Budesonide/Formoterol Fumarate (Symbicort 80/4.5mcg -) 2 puff IH BID [facility] Last Admin: 02/08/19 10:17 Dose: Not Given Chlorhexidine Gluconate (Hibiclens For Decolonization -) 1 applic TP HS LANCE Gabapentin (Neurontin -) 300 mg PO DAILY [facility] Last Admin: 02/08/19 10:16 Dose: Not Given Imipenem/Cilastatin Sodium 500 (mg/ Sodium Chloride) 100 mls @ 100 mls/hr IVPB Q8H-IV LANCE; Protocol Last Admin: 02/08/19 05:01 Dose: 100 mls/hr Sodium Bicarbonate 150 meq/ (Dextrose) 1,000 mls @ 150 mls/hr IV ASDIR [facility] Last Admin: 02/08/19 08:32 Dose: 150 mls/hr Sodium Chloride (Normal Saline -) 250 mls @ 3,000 mls/hr IV PRN PRN PRN Reason: Hypotension during Dialysis Stop: 02/09/19 09:39 Insulin Aspart (Novolog Vial Sliding Scale -) 1 vial SQ ACHS [facility]; Protocol Metoprolol Tartrate (Lopressor -) 25 mg PO DAILY [facility] Last Admin: 02/08/19 10:16 Dose: Not Given Mupirocin (Bactroban Ointment (For Decolonization) -) 1 applic NS BID [facility] Stop: 02/13/19 09:59 Last Admin: 02/08/19 10:17 Dose: Not Given Nystatin (Mycostatin Cream -) 1 applic TP Q6HPO [facility] Pantoprazole Sodium (Protonix -) 40 mg PO DAILY [facility] Last Admin: 02/08/19 10:17 Dose: Not Given GENERAL: Lethargic, agitated HEAD: Normal with no signs of trauma. EYES: Pupils equal and reactive to light, sclera anicteric, conjunctiva clear. No lid lag. EARS, NOSE, THROAT: Ears normal, nares patent, oropharynx clear without exudates. Moist mucous membranes. NECK: Normal range of motion, supple without lymphadenopathy, JVD, or masses. LUNGS: Breath sounds equal, clear to auscultation bilaterally. no wheezes, and no crackles. No accessory muscle use. HEART: Regular rate and rhythm, normal S1 and S2 without murmur, rub or gallop. ABDOMEN: Soft, nontender, not distended, normoactive bowel sounds, no guarding, no rebound, no masses. No hepatomegaly or splenomegaly. MUSCULOSKELETAL: Normal range of motion at all joints. No bony deformities or tenderness. No CVA tenderness. UPPER EXTREMITIES: 2+ pulses, warm, well-perfused. No cyanosis. No clubbing. Cap refill <2 seconds. No peripheral edema. LOWER EXTREMITIES: (+) oozing leg wounds NEUROLOGICAL: Lethargic and confused, non-focal PSYCHIATRIC: Confused. SKIN: Warm, dry, normal turgor, no rashes or lesions noted. Laboratory Results - last 24 hr 02/08/19 02/08/19 02/08/19 00:23 00:59 01:45 WBC RBC Hgb Hct MCV MCH MCHC RDW Plt Count MPV Absolute Neuts (auto) Neutrophils % Neutrophils % (Manual) Band Neutrophils % Lymphocytes % Lymphocytes % (Manual) Monocytes % Monocytes % (Manual) Eosinophils % Eosinophils % (Manual) Basophils % Basophils % (Manual) Myelocytes % (Man) Promyelocytes % (Man) Blast Cells % (Manual) Nucleated RBC % Metamyelocytes Hypochromia Platelet Estimate Polychromasia Poikilocytosis Anisocytosis Microcytosis Macrocytosis ESR PT with INR INR PTT (Actin FS) Puncture Site ABG pH ABG pCO2 at Pt Temp ABG pO2 at Pt Temp ABG HCO3 ABG O2 Sat (Measured) ABG O2 Content ABG Base Excess Kwesi Test VBG pH POC VBG pCO2 POC VBG pO2 VBG HCO3 VBG O2 Sat (Macho) VBG Base Excess Carboxyhemoglobin Methemoglobin Oxygen Flow Rate Sodium Potassium Chloride Carbon Dioxide Anion Gap BUN Creatinine Est GFR (CKD-EPI)AfAm Est GFR (CKD-EPI)NonAf POC Glucometer 160 Random Glucose Lactic Acid Calcium Total Bilirubin AST ALT Alkaline Phosphatase Ammonia Troponin I < 0.02 C-Reactive Protein 5.0 H B-Natriuretic Peptide Total Protein Albumin 02/08/19 02/08/19 02/08/19 01:45 01:45 01:45 WBC 21.9 H RBC 4.29 Hgb 11.9 Hct 39.2 D MCV 91.3 MCH 27.6 MCHC 30.3 L RDW 17.1 H Plt Count 369 D MPV 10.3 Absolute Neuts (auto) 20.5 H Neutrophils % 93.5 H Neutrophils % (Manual) 84.1 H Band Neutrophils % 6.5 Lymphocytes % 3.4 L D Lymphocytes % (Manual) 6.6 L D Monocytes % 2.7 L Monocytes % (Manual) 0 L Eosinophils % 0.2 D Eosinophils % (Manual) 0.0 Basophils % 0.2 Basophils % (Manual) 0.0 Myelocytes % (Man) 3 H D Promyelocytes % (Man) 0 Blast Cells % (Manual) 0 Nucleated RBC % 0 Metamyelocytes 0 Hypochromia 0 Platelet Estimate Normal Polychromasia 0 Poikilocytosis 1+ Anisocytosis 2+ Microcytosis 2+ Macrocytosis 0 ESR 74 H PT with INR INR PTT (Actin FS) Puncture Site ABG pH ABG pCO2 at Pt Temp ABG pO2 at Pt Temp ABG HCO3 ABG O2 Sat (Measured) ABG O2 Content ABG Base Excess Kw[place] Test VBG pH POC VBG pCO2 POC VBG pO2 VBG HCO3 VBG O2 Sat (Macho) VBG Base Excess Carboxyhemoglobin Methemoglobin Oxygen Flow Rate Sodium 127 L Potassium > 10.0 H* Chloride 108 H Carbon Dioxide 7 L Anion Gap 12 BUN 169.8 H* Creatinine 11.0 H* Est GFR (CKD-EPI)AfAm 4.04 Est GFR (CKD-EPI)NonAf 3.49 POC Glucometer Random Glucose 169 H Lactic Acid Calcium 9.2 Total Bilirubin 0.3 AST 86 H ALT 36 Alkaline Phosphatase 170 H Ammonia Troponin I C-Reactive Protein B-Natriuretic Peptide Total Protein 9.1 H Albumin 3.2 L 02/08/19 02/08/19 02/08/19 01:45 01:45 04:30 WBC RBC Hgb Hct MCV MCH MCHC RDW Plt Count MPV Absolute Neuts (auto) Neutrophils % Neutrophils % (Manual) Band Neutrophils % Lymphocytes % Lymphocytes % (Manual) Monocytes % Monocytes % (Manual) Eosinophils % Eosinophils % (Manual) Basophils % Basophils % (Manual) Myelocytes % (Man) Promyelocytes % (Man) Blast Cells % (Manual) Nucleated RBC % Metamyelocytes Hypochromia Platelet Estimate Polychromasia Poikilocytosis Anisocytosis Microcytosis Macrocytosis ESR PT with INR INR PTT (Actin FS) Puncture Site ABG pH ABG pCO2 at Pt Temp ABG pO2 at Pt Temp ABG HCO3 ABG O2 Sat (Measured) ABG O2 Content ABG Base Excess Kw[place] Test VBG pH POC VBG pCO2 POC VBG pO2 VBG HCO3 VBG O2 Sat (Macho) VBG Base Excess Carboxyhemoglobin Methemoglobin Oxygen Flow Rate Sodium 136 Potassium 7.4 H* Chloride 112 H Carbon Dioxide 7 L Anion Gap 17 H BUN 163.2 H* Creatinine 11.0 H* Est GFR (CKD-EPI)AfAm 4.04 Est GFR (CKD-EPI)NonAf 3.49 POC Glucometer Random Glucose 177 H Lactic Acid 2.0 Calcium 8.9 Total Bilirubin AST ALT Alkaline Phosphatase Ammonia Troponin I C-Reactive Protein B-Natriuretic Peptide 1479.5 H Total Protein Albumin 02/08/19 02/08/19 02/08/19 04:30 05:30 05:30 WBC RBC Hgb Hct MCV MCH MCHC RDW Plt Count MPV Absolute Neuts (auto) Neutrophils % Neutrophils % (Manual) Band Neutrophils % Lymphocytes % Lymphocytes % (Manual) Monocytes % Monocytes % (Manual) Eosinophils % Eosinophils % (Manual) Basophils % Basophils % (Manual) Myelocytes % (Man) Promyelocytes % (Man) Blast Cells % (Manual) Nucleated RBC % Metamyelocytes Hypochromia Platelet Estimate Polychromasia Poikilocytosis Anisocytosis Microcytosis Macrocytosis ESR PT with INR 15.60 H INR 1.32 H PTT (Actin FS) 35.2 Puncture Site ABG pH ABG pCO2 at Pt Temp ABG pO2 at Pt Temp ABG HCO3 ABG O2 Sat (Measured) ABG O2 Content ABG Base Excess Kwesi Test VBG pH POC VBG pCO2 POC VBG pO2 VBG HCO3 VBG O2 Sat (Macho) VBG Base Excess Carboxyhemoglobin Methemoglobin Oxygen Flow Rate Sodium Potassium Chloride Carbon Dioxide Anion Gap BUN Creatinine Est GFR (CKD-EPI)AfAm Est GFR (CKD-EPI)NonAf POC Glucometer Random Glucose Lactic Acid Calcium Total Bilirubin AST ALT Alkaline Phosphatase Ammonia 54.50 H Troponin I C-Reactive Protein B-Natriuretic Peptide Total Protein Albumin 02/08/19 02/08/19 05:30 05:54 WBC RBC Hgb Hct MCV MCH MCHC RDW Plt Count MPV Absolute Neuts (auto) Neutrophils % Neutrophils % (Manual) Band Neutrophils % Lymphocytes % Lymphocytes % (Manual) Monocytes % Monocytes % (Manual) Eosinophils % Eosinophils % (Manual) Basophils % Basophils % (Manual) Myelocytes % (Man) Promyelocytes % (Man) Blast Cells % (Manual) Nucleated RBC % Metamyelocytes Hypochromia Platelet Estimate Polychromasia Poikilocytosis Anisocytosis Microcytosis Macrocytosis ESR PT with INR INR PTT (Actin FS) Puncture Site Right brachial ABG pH 7.01 L* ABG pCO2 at Pt Temp 18.5 L ABG pO2 at Pt Temp 122 H ABG HCO3 4.4 L ABG O2 Sat (Measured) 97.3 ABG O2 Content 15.2 ABG Base Excess -25.8 L Kwesi Test Positive VBG pH 6.99 L* POC VBG pCO2 26.4 L POC VBG pO2 < 49 H VBG HCO3 6.1 L VBG O2 Sat (Macho) 41.8 L VBG Base Excess -24.4 L Carboxyhemoglobin 0.6 Methemoglobin < 1.0 Oxygen Flow Rate Room air Sodium Potassium Chloride Carbon Dioxide Anion Gap BUN Creatinine Est GFR (CKD-EPI)AfAm Est GFR (CKD-EPI)NonAf POC Glucometer Random Glucose Lactic Acid Calcium Total Bilirubin AST ALT Alkaline Phosphatase Ammonia Troponin I C-Reactive Protein B-Natriuretic Peptide Total Protein Albumin ASSESSMENT/PLAN: Acute Renal failure with emergent need for dialysis Uremia Severe Hyperkalemia Metabolic acidosis Suspected sepsis due to LE wounds Altered Mental status Will need emergent dialysis Access will be inserted Strict I & O. Follow labs Sampson-culture ABX per ID Surgery evaluation for leg wounds ICU monitoring Dr Andre Critical care time spent in reviewing chart, evaluating patient and formulating plan - 36 minutes.
[2019-02-08 10:28] LABS: URINE APPEARANCE TURBID; URINE COLOR YELLOW; URINE GLUCOSE (UA) NEGATIVE (NEGATIVE)
[2019-02-08 10:29] LABS: URINE BILIRUBIN NEGATIVE (NEGATIVE); URINE KETONE TRACE (NEGATIVE); URINE LEUK ESTERASE TRACE (NEGATIVE); URINE NITRITE NEGATIVE (NEGATIVE); URINE PROTEIN TRACE (NEGATIVE); URINE UROBILINOGEN 0.2 mg/dL (0.2-1.0); URINE WBC 16.9 /hpf (0-5)
[2019-02-08 10:30] LABS: EPI CELLS 68.7 /HPF (0-5/HPF)
[2019-02-08 10:58] LABS: URINE BACTERIA 1+ /hpf (NEGATIVE); URINE RBC 10.6 /hpf (0-4)
[2019-02-08 10:59] LABS: URINE CRYSTALS MOD /hpf
[2019-02-08] MEDS ORDERED: PNEUMOC 13-VAL CONJ-DIP CRM/PF 0.5 ML DISP.SYRIN IM ONE (10:59)
[2019-02-08] MEDS ORDERED: INSULIN SLIDING SCALE (NOVOLOG) 1 VIAL SQ SCH (11:00)
--- NOTE | 2019-02-08 11:18 | PROC ---
Procedure Note Procedure: Trialysis Catheter inserted into pt's right IJ via Seldinger Technique. pt was prepped and draped in usual sterile fashion. Lidocaine used to anesthetize area. Chest XRAY ordered. No penumothorax. Catheter in proper place. Supervised by Dr Andre.
[2019-02-08] MEDS: INSULIN SLIDING SCALE (NOVOLOG) 1 VIAL SQ SCH ×3 (11:41→22:50)
[2019-02-08] MEDS: SODIUM BICARBONATE 8.4% - 150 MEQ in DEXTROSE 5%-WATER - 850 ML IV SCH ×3 (12:14→22:14)
[2019-02-08] MEDS: NYSTATIN 100,000 UNIT/GM TOPICAL CREAM 15 GM TUBE TP SCH ×2 (12:15→17:59)
[2019-02-08] MEDS: ALBUMIN HUMAN 25% 12.5 GM/50 ML VIAL IVPB SCH ×4 (12:28→13:52)
[2019-02-08] MEDS ORDERED: PNEUMOCOCCAL 23 VACCINE 0.5 ML VIAL IM ONE (12:30)
[2019-02-08] MEDS ORDERED: NOREPINEPHRINE BITARTRATE 4 MG/4 ML ML IV ONE (12:44)
[2019-02-08] MEDS: NOREPINEPHRINE BITARTRATE 8,000 MCG in DEXTROSE 5%-WATER - 492 ML IV SCH (12:51)
[2019-02-08] MEDS ORDERED: VASOPRESSIN 20 UNITS/ML VIAL IV ONE (13:21)
--- NOTE | 2019-02-08 13:26 | CON.ID ---
Consult - History of Present Illness History of Present Illness: 53 y.o. female with PMH of chronic b/l LE ulcers, cellulitis, IDDM, HTN, HLD, CKD, Anemia, GERD, obesity, AFIB, Asthma, and bipolar disorder brought to the ER by her brother for lethargy/AMS for the last several days. Pt reported to be barely responsive and agitated and not a source of history. Her LE ulcers found to have malodorous drainage with presence of flies and edema/warmth/erythema. Apparently pt has been noncompliant with follow up for wound care. Labs significant for wbc 21.9K, BUN - 163, Creatinine of 11 and lactic acid of 2.4. Pt currently in ICU being dialyzed, remains unresponsive to verbal/physical stimuli, with low BP and was started on Levophed. - History Source History Provided By: Medical Record Limitations to Obtaining History: Unresponsive - Past Medical History Cardio/Vascular: Yes: AFIB, HTN Pulmonary: Yes: Asthma Gastrointestinal: Yes: Other (gallstones) Hepatobiliary: Yes: Cholelithiasis (passed without surgery), Other (fatty liver) Renal/: Yes: Renal Inusuff Infectious Disease: Yes: Other (LE cellulitis) Psych: Yes: Bipolar Endocrine: Yes: Diabetes Mellitus Dermatology: Yes: Cellulitis (b/l LE with ulcerations) Additional Medical History: obesity - Alcohol/Substance Use Hx Alcohol Use: No History of Substance Use: reports: Prescription (narcotics) - Smoking History Smoking history: Former smoker Have you smoked in the past 12 months: No Aproximately how many cigarettes per day: 0 If you are a former smoker, when did you quit?: quit age 13 - Social History Usual Living Arrangement: Alone ADL: Independent 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 History of Recent Travel: No Home Medications - Allergies Allergies/Adverse Reactions: Allergies Allergy/AdvReac Type Severity Reaction Status Date / Time nut - unspecified Allergy Verified 02/08/19 09:45 Penicillins Allergy Verified 02/08/19 09:45 walnut Allergy Verified 02/08/19 09:45 - Home Medications Home Medications: Ambulatory Orders Budesonide/Formeterol Fumarate [SYMBICORT 80/4.5mcg -] 2 puff IH BID inhaler Insulin Sliding Scale [Novolog Vial Sliding Scale -] 1 vial SQ ACHS units 02/20 Pantoprazole Sodium [Protonix -] 40 mg PO DAILY tablet.ec 07/04/17 Gabapentin 300 mg PO DAILY 07/15/18 Insulin Glargine,Hum.rec.anlog [Gordonujuan Styles Solostar] 300 unit SQ BID #15 insuln.pen 07/22/18 Metoprolol Tartrate [Lopressor -] 25 mg PO DAILY #30 tablet 07/22/18 Polyethylene Glycol 3350 [Miralax 119 gm Btl -] 17 gm PO DAILY bottle 07/22/18 Apixaban [Eliquis -] 5 mg PO BID #60 tablet 11/22/18 Bacitracin - [Bacitracin Topical Ointment -] 1 applic TP BID tube 11/22/18 Clindamycin HCl 300 mg PO TID #15 capsule 11/22/18 Insulin (Levemir) [Levemir Vial] 25 units SQ BID units 11/22/18 Magnesium Oxide [Mag-Ox -] 400 mg PO BID tablet 11/22/18 Nystatin Cream [Mycostatin Cream -] 1 applic TP Q6HPO applic 11/22/18 Pantoprazole Sodium [Protonix -] 40 mg PO DAILY #30 tablet.ec 11/22/18 Family Disease History - Family Disease History Family Disease History: Other: Father ( age 50 CVA), Mother ( 82 ), Brother (stomach cancer), Sister (breast cancer) Review of Systems Unable to obtain ROS, reason: Pt unresponsive Physical Exam Vital Signs: Vital Signs Temperature 97.6 F 02/08/19 10:08 Pulse Rate 108 H 02/08/19 13:16 Respiratory Rate 26 H 02/08/19 12:00 Blood Pressure 66/50 L 02/08/19 13:16 O2 Sat by Pulse Oximetry (%) 98 02/08/19 12:30 Constitutional: Yes: Other (unresponsive) Eyes: Yes: Conjunctiva Clear HENT: Yes: Atraumatic Neck: Yes: Supple Cardiovascular: Yes: Pulse Irregular Respiratory: Yes: Rhonchi (scattered anteriorly) Gastrointestinal: Yes: Normal Bowel Sounds, Soft, Abdomen, Obese Renal/: Yes: Johnson Present (no urine noted) Extremities: Yes: Erythema (b/l LE) Edema: LLE: 2+, RLE: 2+ Wound/Incision: Yes: Other (b/l LE ulcers with malodorous drainage, +edema/ erythema/warmth) Neurological: Yes: Unresponsive Labs: CBC, BMP 02/08/19 01:45 02/08/19 04:30 Laboratory Tests 02/08/19 02/08/19 02/08/19 00:23 00:59 01:45 WBC RBC Hgb Hct MCV MCH MCHC RDW Plt Count MPV Absolute Neuts (auto) Neutrophils % Neutrophils % (Manual) Band Neutrophils % Lymphocytes % Lymphocytes % (Manual) Monocytes % Monocytes % (Manual) Eosinophils % Eosinophils % (Manual) Basophils % Basophils % (Manual) Myelocytes % (Man) Promyelocytes % (Man) Blast Cells % (Manual) Nucleated RBC % Metamyelocytes Hypochromia Platelet Estimate Polychromasia Poikilocytosis Anisocytosis Microcytosis Macrocytosis ESR PT with INR INR PTT (Actin FS) Puncture Site ABG pH ABG pCO2 at Pt Temp ABG pO2 at Pt Temp ABG HCO3 ABG O2 Sat (Measured) ABG O2 Content ABG Base Excess Kwesi Test VBG pH POC VBG pCO2 POC VBG pO2 VBG HCO3 VBG O2 Sat (Macho) VBG Base Excess Carboxyhemoglobin Methemoglobin Oxygen Flow Rate Sodium Potassium Chloride Carbon Dioxide Anion Gap BUN Creatinine Est GFR (CKD-EPI)AfAm Est GFR (CKD-EPI)NonAf POC Glucometer 160 Random Glucose Lactic Acid Calcium Total Bilirubin AST ALT Alkaline Phosphatase Ammonia Troponin I < 0.02 C-Reactive Protein 5.0 H B-Natriuretic Peptide Total Protein Albumin Urine Color Urine Appearance Urine pH Ur Specific Katy Urine Protein Urine Glucose (UA) Urine Ketones Urine Blood Urine Nitrite Urine Bilirubin Urine Urobilinogen Ur Leukocyte Esterase Urine WBC (Auto) Urine RBC (Auto) Urine Casts (Auto) U Epithel Cells (Auto) Urine Crystals (Auto) Urine Bacteria (Auto) 02/08/19 02/08/19 02/08/19 01:45 01:45 01:45 WBC 21.9 H RBC 4.29 Hgb 11.9 Hct 39.2 D MCV 91.3 MCH 27.6 MCHC 30.3 L RDW 17.1 H Plt Count 369 D MPV 10.3 Absolute Neuts (auto) 20.5 H Neutrophils % 93.5 H Neutrophils % (Manual) 84.1 H Band Neutrophils % 6.5 Lymphocytes % 3.4 L D Lymphocytes % (Manual) 6.6 L D Monocytes % 2.7 L Monocytes % (Manual) 0 L Eosinophils % 0.2 D Eosinophils % (Manual) 0.0 Basophils % 0.2 Basophils % (Manual) 0.0 Myelocytes % (Man) 3 H D Promyelocytes % (Man) 0 Blast Cells % (Manual) 0 Nucleated RBC % 0 Metamyelocytes 0 Hypochromia 0 Platelet Estimate Normal Polychromasia 0 Poikilocytosis 1+ Anisocytosis 2+ Microcytosis 2+ Macrocytosis 0 ESR 74 H PT with INR INR PTT (Actin FS) Puncture Site ABG pH ABG pCO2 at Pt Temp ABG pO2 at Pt Temp ABG HCO3 ABG O2 Sat (Measured) ABG O2 Content ABG Base Excess Kwesi Test VBG pH POC VBG pCO2 POC VBG pO2 VBG HCO3 VBG O2 Sat (Macho) VBG Base Excess Carboxyhemoglobin Methemoglobin Oxygen Flow Rate Sodium 127 L Potassium > 10.0 H* Chloride 108 H Carbon Dioxide 7 L Anion Gap 12 BUN 169.8 H* Creatinine 11.0 H* Est GFR (CKD-EPI)AfAm 4.04 Est GFR (CKD-EPI)NonAf 3.49 POC Glucometer Random Glucose 169 H Lactic Acid Calcium 9.2 Total Bilirubin 0.3 AST 86 H ALT 36 Alkaline Phosphatase 170 H Ammonia Troponin I C-Reactive Protein B-Natriuretic Peptide Total Protein 9.1 H Albumin 3.2 L Urine Color Urine Appearance Urine pH Ur Specific Katy Urine Protein Urine Glucose (UA) Urine Ketones Urine Blood Urine Nitrite Urine Bilirubin Urine Urobilinogen Ur Leukocyte Esterase Urine WBC (Auto) Urine RBC (Auto) Urine Casts (Auto) U Epithel Cells (Auto) Urine Crystals (Auto) Urine Bacteria (Auto) 02/08/19 02/08/19 02/08/19 01:45 01:45 04:30 WBC RBC Hgb Hct MCV MCH MCHC RDW Plt Count MPV Absolute Neuts (auto) Neutrophils % Neutrophils % (Manual) Band Neutrophils % Lymphocytes % Lymphocytes % (Manual) Monocytes % Monocytes % (Manual) Eosinophils % Eosinophils % (Manual) Basophils % Basophils % (Manual) Myelocytes % (Man) Promyelocytes % (Man) Blast Cells % (Manual) Nucleated RBC % Metamyelocytes Hypochromia Platelet Estimate Polychromasia Poikilocytosis Anisocytosis Microcytosis Macrocytosis ESR PT with INR INR PTT (Actin FS) Puncture Site ABG pH ABG pCO2 at Pt Temp ABG pO2 at Pt Temp ABG HCO3 ABG O2 Sat (Measured) ABG O2 Content ABG Base Excess Kwesi Test VBG pH POC VBG pCO2 POC VBG pO2 VBG HCO3 VBG O2 Sat (Macho) VBG Base Excess Carboxyhemoglobin Methemoglobin Oxygen Flow Rate Sodium 136 Potassium 7.4 H* Chloride 112 H Carbon Dioxide 7 L Anion Gap 17 H BUN 163.2 H* Creatinine 11.0 H* Est GFR (CKD-EPI)AfAm 4.04 Est GFR (CKD-EPI)NonAf 3.49 POC Glucometer Random Glucose 177 H Lactic Acid 2.0 Calcium 8.9 Total Bilirubin AST ALT Alkaline Phosphatase Ammonia Troponin I C-Reactive Protein B-Natriuretic Peptide 1479.5 H Total Protein Albumin Urine Color Urine Appearance Urine pH Ur Specific Katy Urine Protein Urine Glucose (UA) Urine Ketones Urine Blood Urine Nitrite Urine Bilirubin Urine Urobilinogen Ur Leukocyte Esterase Urine WBC (Auto) Urine RBC (Auto) Urine Casts (Auto) U Epithel Cells (Auto) Urine Crystals (Auto) Urine Bacteria (Auto) 02/08/19 02/08/19 02/08/19 04:30 05:30 05:30 WBC RBC Hgb Hct MCV MCH MCHC RDW Plt Count MPV Absolute Neuts (auto) Neutrophils % Neutrophils % (Manual) Band Neutrophils % Lymphocytes % Lymphocytes % (Manual) Monocytes % Monocytes % (Manual) Eosinophils % Eosinophils % (Manual) Basophils % Basophils % (Manual) Myelocytes % (Man) Promyelocytes % (Man) Blast Cells % (Manual) Nucleated RBC % Metamyelocytes Hypochromia Platelet Estimate Polychromasia Poikilocytosis Anisocytosis Microcytosis Macrocytosis ESR PT with INR 15.60 H INR 1.32 H PTT (Actin FS) 35.2 Puncture Site ABG pH ABG pCO2 at Pt Temp ABG pO2 at Pt Temp ABG HCO3 ABG O2 Sat (Measured) ABG O2 Content ABG Base Excess Kwesi Test VBG pH POC VBG pCO2 POC VBG pO2 VBG HCO3 VBG O2 Sat (Macho) VBG Base Excess Carboxyhemoglobin Methemoglobin Oxygen Flow Rate Sodium Potassium Chloride Carbon Dioxide Anion Gap BUN Creatinine Est GFR (CKD-EPI)AfAm Est GFR (CKD-EPI)NonAf POC Glucometer Random Glucose Lactic Acid Calcium Total Bilirubin AST ALT Alkaline Phosphatase Ammonia 54.50 H Troponin I C-Reactive Protein B-Natriuretic Peptide Total Protein Albumin Urine Color Urine Appearance Urine pH Ur Specific Katy Urine Protein Urine Glucose (UA) Urine Ketones Urine Blood Urine Nitrite Urine Bilirubin Urine Urobilinogen Ur Leukocyte Esterase Urine WBC (Auto) Urine RBC (Auto) Urine Casts (Auto) U Epithel Cells (Auto) Urine Crystals (Auto) Urine Bacteria (Auto) 02/08/19 02/08/19 02/08/19 05:30 05:54 09:15 WBC RBC Hgb Hct MCV MCH MCHC RDW Plt Count MPV Absolute Neuts (auto) Neutrophils % Neutrophils % (Manual) Band Neutrophils % Lymphocytes % Lymphocytes % (Manual) Monocytes % Monocytes % (Manual) Eosinophils % Eosinophils % (Manual) Basophils % Basophils % (Manual) Myelocytes % (Man) Promyelocytes % (Man) Blast Cells % (Manual) Nucleated RBC % Metamyelocytes Hypochromia Platelet Estimate Polychromasia Poikilocytosis Anisocytosis Microcytosis Macrocytosis ESR PT with INR INR PTT (Actin FS) Puncture Site Right brachial ABG pH 7.01 L* ABG pCO2 at Pt Temp 18.5 L ABG pO2 at Pt Temp 122 H ABG HCO3 4.4 L ABG O2 Sat (Measured) 97.3 ABG O2 Content 15.2 ABG Base Excess -25.8 L Kwesi Test Positive VBG pH 6.99 L* POC VBG pCO2 26.4 L POC VBG pO2 < 49 H VBG HCO3 6.1 L VBG O2 Sat (Macho) 41.8 L VBG Base Excess -24.4 L Carboxyhemoglobin 0.6 Methemoglobin < 1.0 Oxygen Flow Rate Room air Sodium Potassium Chloride Carbon Dioxide Anion Gap BUN Creatinine Est GFR (CKD-EPI)AfAm Est GFR (CKD-EPI)NonAf POC Glucometer Random Glucose Lactic Acid Calcium Total Bilirubin AST ALT Alkaline Phosphatase Ammonia Troponin I C-Reactive Protein B-Natriuretic Peptide Total Protein Albumin Urine Color Yellow Urine Appearance Turbid Urine pH 5.0 Ur Specific Katy 1.033 Urine Protein Trace Urine Glucose (UA) Negative Urine Ketones Trace H Urine Blood 2+ H Urine Nitrite Negative Urine Bilirubin Negative Urine Urobilinogen 0.2 Ur Leukocyte Esterase Trace Urine WBC (Auto) 16.9 Urine RBC (Auto) 10.6 Urine Casts (Auto) 0 U Epithel Cells (Auto) 68.7 Urine Crystals (Auto) Mod Urine Bacteria (Auto) 1+ 02/08/19 02/08/19 11:08 12:00 WBC RBC Hgb Hct MCV MCH MCHC RDW Plt Count MPV Absolute Neuts (auto) Neutrophils % Neutrophils % (Manual) Band Neutrophils % Lymphocytes % Lymphocytes % (Manual) Monocytes % Monocytes % (Manual) Eosinophils % Eosinophils % (Manual) Basophils % Basophils % (Manual) Myelocytes % (Man) Promyelocytes % (Man) Blast Cells % (Manual) Nucleated RBC % Metamyelocytes Hypochromia Platelet Estimate Polychromasia Poikilocytosis Anisocytosis Microcytosis Macrocytosis ESR PT with INR INR PTT (Actin FS) Puncture Site ABG pH ABG pCO2 at Pt Temp ABG pO2 at Pt Temp ABG HCO3 ABG O2 Sat (Measured) ABG O2 Content ABG Base Excess Kwesi Test VBG pH POC VBG pCO2 POC VBG pO2 VBG HCO3 VBG O2 Sat (Macho) VBG Base Excess Carboxyhemoglobin Methemoglobin Oxygen Flow Rate Sodium Potassium Chloride Carbon Dioxide Anion Gap BUN Creatinine Est GFR (CKD-EPI)AfAm Est GFR (CKD-EPI)NonAf POC Glucometer 162 Random Glucose Lactic Acid 2.4 H* Calcium Total Bilirubin AST ALT Alkaline Phosphatase Ammonia Troponin I C-Reactive Protein B-Natriuretic Peptide Total Protein Albumin Urine Color Urine Appearance Urine pH Ur Specific Katy Urine Protein Urine Glucose (UA) Urine Ketones Urine Blood Urine Nitrite Urine Bilirubin Urine Urobilinogen Ur Leukocyte Esterase Urine WBC (Auto) Urine RBC (Auto) Urine Casts (Auto) U Epithel Cells (Auto) Urine Crystals (Auto) Urine Bacteria (Auto) Imaging - Results Chest X-ray: Report Reviewed Problem List - Problems (1) Bilateral leg ulcer Code(s): L97.919 - NON-PRS CHRONIC ULC UNSP PRT OF R LOW LEG W UNSP SEVERITY; L97.929 - NON-PRS CHRONIC ULC UNSP PRT OF L LOW LEG W UNSP SEVERITY (2) Sepsis Code(s): A41.9 - SEPSIS, UNSPECIFIED ORGANISM Qualifiers: Sepsis type: sepsis due to unspecified organism Sepsis acute organ dysfunction status: unspecified Qualified Code(s): A41.9 - Sepsis, unspecified organism (3) ARF (acute renal failure) Code(s): N17.9 - ACUTE KIDNEY FAILURE, UNSPECIFIED (4) Afib Code(s): I48.91 - UNSPECIFIED ATRIAL FIBRILLATION Qualifiers: Atrial fibrillation type: paroxysmal Qualified Code(s): I48.0 - Paroxysmal atrial fibrillation (5) Altered mental status Code(s): R41.82 - ALTERED MENTAL STATUS, UNSPECIFIED (6) Cellulitis Code(s): L03.90 - CELLULITIS, UNSPECIFIED Qualifiers: Site of cellulitis: unspecified site Qualified Code(s): L03.90 - Cellulitis , unspecified (7) DM2 (diabetes mellitus, type 2) Code(s): E11.9 - TYPE 2 DIABETES MELLITUS WITHOUT COMPLICATIONS Qualifiers: Diabetes mellitus rn long term care insulin use: with rn long term care use Diabetes mellitus complication detail: with other circulatory complications (8) Encephalopathy due to metabolic factor or toxin Code(s): USB9308 - (9) HTN (hypertension) Code(s): I10 - ESSENTIAL (PRIMARY) HYPERTENSION (10) Hyperkalemia Code(s): E87.5 - HYPERKALEMIA (11) Lactic acidosis Code(s): E87.2 - ACIDOSIS (12) Leukocytosis Code(s): D72.829 - ELEVATED WHITE BLOOD CELL COUNT, UNSPECIFIED (13) Metabolic acidosis Code(s): E87.2 - ACIDOSIS (14) Morbid obesity Code(s): E66.01 - MORBID (SEVERE) OBESITY DUE TO EXCESS CALORIES (15) Severe sepsis Code(s): A41.9 - SEPSIS, UNSPECIFIED ORGANISM; R65.20 - SEVERE SEPSIS WITHOUT SEPTIC SHOCK (16) Venous stasis Code(s): I87.8 - OTHER SPECIFIED DISORDERS OF VEINS Assessment/Plan 53 y.o. female with PMH of chronic b/l LE ulcers, cellulitis, T2 DM, HTN, HLD, CKD, Anemia, GERD, obesity, AFIB, Asthma, and bipolar disorder brought to the ER by her brother for lethargy/AMS for the last several days noted to be in ARF , with leukocytosis, and b/l LE ulcers with malodorous drainage/erythema/ warmth. Currently receiving HD and hypotensive on Vasopressors Shock possibly from Sepsis-- on vasopressors AMS/Toxic metabolic encephalopathy/Uremia Infected b/l LE ulcers/cellulitis ARF on CKD - emergent HD started Hyperkalemia Acidosis Uremia Leukocytosis Lactic acidosis AFIB DM Morbid Obesity Asthma Bipolar d.o. HTN HLD -- will Start Meropenem (monitor with administration) , Vancomycin x 1 dose given, check random level in a.m. -- one dose of Caspofungin today, f/u blood cultures to assess need for continued antifungal coverage -- repeat lactic acid -- follow up blood and wound culture results -- monitor wbc trend -- wound care -- rest of care per Critical Care Pt in critical condition cc time: 40 min
[2019-02-08] MEDS: VASOPRESSIN 50 UNITS in SODIUM CHLORIDE 97.5 ML IVPB SCH (13:28)
[2019-02-08] MEDS ORDERED: CASPOFUNGIN ACETATE 70 MG in SODIUM CHLORIDE 250 ML IVPB ONE (14:15)
[2019-02-08 14:59] LABS: HYALINE CASTS 252.7 /lpf (0-8)
--- NOTE | 2019-02-08 16:49 | EKG ---
Test Reason : Blood Pressure : / mmHG Vent. Rate : 110 BPM Atrial Rate : 115 BPM P-R Int : 000 ms QRS Dur : 102 ms QT Int : 330 ms P-R-T Axes : 000 -02 035 degrees QTc Int : 446 ms ATRIAL FIBRILLATION WITH RAPID VENTRICULAR RESPONSE INCOMPLETE RBBB SEPTAL INFARCT ABNORMAL ECG Confirmed by MD SAMIRA, KARIN ([id number]) on 02/08/2019 4:48:43 PM Referred By: Confirmed By:AKRIN HOGAN MD
[2019-02-08 17:12] LABS: ARTERIAL BLD GAS O2 SATURATION 98.9 % (95-98); ARTERIAL BLOOD GAS BASE EXCESS -11.6 meq/l (-2-2); ARTERIAL BLOOD GAS PCO2 34.2 mmHg (35-45); ARTERIAL BLOOD GAS PO2 139 mmHg (80-100); ARTERIAL BLOOD GAS pH 7.25 (7.35-7.45)
[2019-02-08 17:13] LABS: EPI CELLS 34.8 /HPF (0-5/HPF); HYALINE CASTS 121 /lpf (0-8); URINE APPEARANCE TURBID; URINE BACTERIA 5.1 /hpf (NEGATIVE); URINE BILIRUBIN 1+ (NEGATIVE); URINE COLOR RED; URINE GLUCOSE (UA) TRACE (NEGATIVE); URINE KETONE TRACE (NEGATIVE); URINE LEUK ESTERASE 2+ (NEGATIVE); URINE NITRITE NEGATIVE (NEGATIVE); URINE PROTEIN 3+ (NEGATIVE); URINE UROBILINOGEN 0.2 mg/dL (0.2-1.0); URINE WBC 78 /hpf (0-5)
[2019-02-08 17:16] LABS: ALLENS TEST POSITIVE
[2019-02-08 17:19] LABS: URINE RBC 4162.4 /hpf (0-4); YEAST NONE SEEN (NEGATIVE)
[2019-02-08 17:37] LABS: BLOOD UREA NITROGEN 83.2 mg/dL (7-18); CALCIUM 7.7 mg/dL (8.5-10.1); CREATININE 5.8 mg/dL (0.55-1.3)
--- NOTE | 2019-02-08 18:09 | PN ---
Progress Note, Physician Chief Complaint: B/L LE chronic Venous stasis ulcerations Chronic Afib on AC HTN Uncontrolled T2DM Bipolar disorder CKD (non-compliant with medications) History of Present Illness: Lethargic, on Venti mask S/P dialysis On 2 pressors, BP improved post dialysis Seen by Nephrology - Current Medication List Current Medications: Active Medications Budesonide/Formoterol Fumarate (Symbicort 80/4.5mcg -) 2 puff IH BID [facility] Last Admin: 02/08/19 10:17 Dose: Not Given Chlorhexidine Gluconate (Hibiclens For Decolonization -) 1 applic TP HS LANCE Gabapentin (Neurontin -) 300 mg PO DAILY [facility] Last Admin: 02/08/19 10:16 Dose: Not Given Heparin Sodium (Porcine) (Heparin -) 5,000 unit SQ TID LANCE Sodium Chloride (Normal Saline -) 250 mls @ 3,000 mls/hr IV PRN PRN PRN Reason: Hypotension during Dialysis Stop: 02/09/19 09:39 Sodium Bicarbonate 150 meq/ (Dextrose) 1,000 mls @ 150 mls/hr IV Q6H [facility] Last Admin: 02/08/19 15:57 Dose: 150 mls/hr Sodium Chloride (Normal Saline -) 250 mls @ 3,000 mls/hr IV PRN PRN PRN Reason: Hypotension during Dialysis Stop: 02/09/19 12:13 Norepinephrine Bitartrate 8, (000 mcg/ Dextrose) 500 mls @ 18.75 mls/hr IV TITR LANCE; Protocol Last Titration: 02/08/19 17:10 Dose: 15 mcg/min, 56.25 mls/hr Vasopressin 50 units/ Sodium (Chloride) 100 mls @ 4 mls/hr IVPB ASDIR [facility]; Protocol Last Titration: 02/08/19 17:12 Dose: 3 units/hr, 6 mls/hr Meropenem 500 mg/ Dextrose 100 mls @ 200 mls/hr IVPB Q12H [facility] Insulin Aspart (Novolog Vial Sliding Scale -) 1 vial SQ ACHS [facility]; Protocol Last Admin: 02/08/19 16:02 Dose: 8 units Metoprolol Tartrate (Lopressor -) 25 mg PO DAILY [facility] Last Admin: 02/08/19 10:16 Dose: Not Given Mupirocin (Bactroban Ointment (For Decolonization) -) 1 applic NS BID [facility] Stop: 02/13/19 09:59 Last Admin: 02/08/19 10:17 Dose: Not Given Nystatin (Mycostatin Cream -) 1 applic TP Q6HPO [facility] Last Admin: 02/08/19 17:59 Dose: Not Given Pantoprazole Sodium (Protonix -) 40 mg PO DAILY [facility] Last Admin: 02/08/19 10:17 Dose: Not Given - Objective Vital Signs: Vital Signs Temperature 96.6 F L 02/08/19 17:23 Pulse Rate 92 H 02/08/19 17:12 Respiratory Rate 02/08/19 16:06 Blood Pressure 142/78 02/08/19 17:12 O2 Sat by Pulse Oximetry (%) 98 02/08/19 12:30 Constitutional: Yes: Well Nourished, Calm, Mild Distress Cardiovascular: Yes: Regular Rate and Rhythm Respiratory: Yes: On Venti-Mask, Rhonchi (diffuse) Gastrointestinal: Yes: Soft, Abdomen, Obese, Hypoactive Bowel Sounds Genitourinary: Yes: Johnson Present Musculoskeletal: Yes: Muscle Weakness Extremities: Yes: Erythema (BLLE) Edema: Yes (BLLE Non pitting edema) Peripheral Pulses WNL: No Peripheral Pulses: Left Doralis Pedis: 1+, Right Dorsalis Pedis: 1+ Wound/Incision: Yes: Dressing Dry and Intact (BLLE) Neurological: Yes: Other (obtunded) Labs: CBC, BMP 02/08/19 01:45 02/08/19 16:40 INR, PTT INR 1.32 (0.83-1.09) H 02/08/19 05:30 Problem List - Problems (1) Acute metabolic encephalopathy Assessment/Plan: -2/2 to sepsis -ID on board -IV abx -Cultures pending -Febrile -leukocytosis -Lactic acidosis -Continue IVF Code(s): G93.41 - METABOLIC ENCEPHALOPATHY (2) NOVA (acute kidney injury) Code(s): N17.9 - ACUTE KIDNEY FAILURE, UNSPECIFIED (3) Bilateral leg ulcer Code(s): L97.919 - NON-PRS CHRONIC ULC UNSP PRT OF R LOW LEG W UNSP SEVERITY; L97.929 - NON-PRS CHRONIC ULC UNSP PRT OF L LOW LEG W UNSP SEVERITY (4) Sepsis Assessment/Plan: -2/2 to sepsis -ID on board -IV abx -Cultures pending -Febrile -leukocytosis -Lactic acidosis -IVF Code(s): A41.9 - SEPSIS, UNSPECIFIED ORGANISM Qualifiers: Sepsis type: sepsis due to unspecified organism Sepsis acute organ dysfunction status: unspecified Qualified Code(s): A41.9 - Sepsis, unspecified organism (5) ARF (acute renal failure) Assessment/Plan: -much improved -nephrology on board -Dialysis as per renal -monitor trend Code(s): N17.9 - ACUTE KIDNEY FAILURE, UNSPECIFIED (6) Altered mental status Assessment/Plan: -2/2 to sepsis -NPO Code(s): R41.82 - ALTERED MENTAL STATUS, UNSPECIFIED (7) Uncontrolled diabetes mellitus Assessment/Plan: -a1c at 9.3 -BGM ACHS -ISS -endocrine consult Code(s): E11.65 - TYPE 2 DIABETES MELLITUS WITH HYPERGLYCEMIA (8) Lactic acidosis Code(s): E87.2 - ACIDOSIS Assessment/Plan see problem list
[2019-02-08] MEDS ORDERED: RAPID SEQUENCE INTUBATION KIT NR ONE (21:35)
--- NOTE | 2019-02-08 21:54 | PN ---
Progress Note (short form) - Note Progress Note: Called for emergent intubation in an obtunded and progressively dyspneic/ tachypneic patient with multiple comorbidities in ICU. Agreed that it was in patient's best interest to secure the airway in the face of worsening pulmonary function. Pt was preoygenated and suctioned, etomidate 14mg and rocuronium 50mg was given. A MAC3 blade was used - grade 1 view appreciated; ETT sized 7.0 placed to 22cm. Tracheal intubation verified with CO2 detector. VSS, pt tolerated intubation without issue.
[2019-02-08] MEDS ORDERED: CHLORHEXIDINE GLUCONATE 4% CLEANSER FOR DECOLONIZATION TP SCH (22:00)
[2019-02-08] MEDS: PROPOFOL 1,000,000 MCG/100 ML VIAL IVPB SCH (22:08)
[2019-02-08] MEDS: CHLORHEXIDINE GLUCONATE 4% CLEANSER FOR DECOLONIZATION TP SCH (22:24)
[2019-02-08] MEDS: HEPARIN NA (PORCINE) 5,000 UNITS/ML 1ML VIAL SQ SCH (22:24)
[2019-02-08] MEDS: MEROPENEM 500 MG in DEXTROSE 5%-WATER 100 ML IVPB SCH (22:25)
[2019-02-08 22:47] LABS: ARTERIAL BLD GAS O2 SATURATION 99.9 % (95-98); ARTERIAL BLOOD GAS BASE EXCESS -6.4 meq/l (-2-2); ARTERIAL BLOOD GAS PCO2 36.2 mmHg (35-45); ARTERIAL BLOOD GAS PO2 364 mmHg (80-100); ARTERIAL BLOOD GAS pH 7.33 (7.35-7.45)
[2019-02-08 22:49] LABS: ALLENS TEST POSITIVE
[2019-02-09] MEDS ORDERED: ACETAMINOPHEN 1000 MG/100 ML VIAL (NON FORMULARY) IVPB ONE ×2 (00:05→08:15)
[2019-02-09] MEDS ORDERED: MIDAZOLAM IN 0.9 % SOD.CHLORID 1 MG/1 ML PLAST..BAG ONE ×2 (00:08→18:40)
[2019-02-09] MEDS: MIDAZOLAM 100 MG in SODIUM CHLORIDE 100 ML IVPB SCH (00:15)
[2019-02-09] MEDS: NYSTATIN 100,000 UNIT/GM TOPICAL CREAM 15 GM TUBE TP SCH ×4 (01:28→18:50)
[2019-02-09] MEDS: SODIUM BICARBONATE 8.4% - 150 MEQ in DEXTROSE 5%-WATER - 850 ML IV SCH ×3 (01:31→05:47)
[2019-02-09] MEDS ORDERED: VASOPRESSIN 20 UNITS/ML VIAL IV ONE ×3 (03:55→23:27)
[2019-02-09] MEDS: VASOPRESSIN 50 UNITS in SODIUM CHLORIDE 97.5 ML IVPB SCH ×3 (05:00→23:32)
[2019-02-09 05:43] LABS: EOS % 2.3 % (0-4.5); HEMATOCRIT 24.9 % (32.4-45.2); HEMOGLOBIN 8.5 GM/dL (10.7-15.3); MCH 28.3 pg (25.7-33.7); MEAN CELL VOLUME 83.2 fl (80-96); MONO % 1.7 % (3.8-10.2); PLATELET COUNT 225 K/MM3 (134-434); RDW 15.7 % (11.6-15.6); WHITE BLOOD COUNT 15.7 K/mm3 (4.0-10.0)
[2019-02-09] MEDS: PROPOFOL 1,000,000 MCG/100 ML VIAL IVPB SCH ×3 (05:44→23:41)
[2019-02-09] MEDS: HEPARIN NA (PORCINE) 5,000 UNITS/ML 1ML VIAL SQ SCH ×3 (05:46→21:28)
[2019-02-09 05:58] LABS: INR 1.71 (0.83-1.09); PROTHROMBIN TIME (PATIENT) 20.3 SEC (9.7-13.0)
[2019-02-09 06:01] LABS: ACTIVATED PTT 30.3 SECONDS (25.2-36.5)
[2019-02-09] MEDS: INSULIN SLIDING SCALE (NOVOLOG) 1 VIAL SQ SCH ×4 (06:07→22:06)
[2019-02-09 06:23] LABS: ALBUMIN 2.4 g/dl (3.4-5.0); BILIRUBIN,TOTAL 0.4 mg/dL (0.2-1); BLOOD UREA NITROGEN 85.8 mg/dL (7-18); CALCIUM 7.2 mg/dL (8.5-10.1); CREATININE 4.6 mg/dL (0.55-1.3); MAGNESIUM 1.3 mg/dL (1.8-2.4); PHOSPHOROUS 5.7 mg/dL (2.5-4.9); POTASSIUM 3.8 mmol/L (3.5-5.1); TOT PROT 5.3 g/dl (6.4-8.2)
[2019-02-09] MEDS ORDERED: MAGNESIUM SULF 50% (8.12 MEQ/2 ML-1 GM VIAL) IVPB ONE (08:45)
--- NOTE | 2019-02-09 08:58 | PN ---
Progress Note, Physician Chief Complaint: INTUBATED/SEDATED EVENTS AND NOTES REVIEWED - Current Medication List Current Medications: Active Medications Albumin Human (Albumin Human 25%) 12.5 gm IVPB Q30M [facility] Budesonide/Formoterol Fumarate (Symbicort 80/4.5mcg -) 2 puff IH BID [facility] Last Admin: 02/08/19 22:25 Dose: Not Given Chlorhexidine Gluconate (Hibiclens For Decolonization -) 1 applic TP HS [facility] Last Admin: 02/08/19 22:24 Dose: 1 applic Gabapentin (Neurontin -) 300 mg PO DAILY [facility] Last Admin: 02/08/19 10:16 Dose: Not Given Heparin Sodium (Porcine) (Heparin -) 5,000 unit SQ TID [facility] Last Admin: 02/09/19 05:46 Dose: 5,000 unit Sodium Chloride (Normal Saline -) 250 mls @ 3,000 mls/hr IV PRN PRN PRN Reason: Hypotension during Dialysis Stop: 02/09/19 09:39 Sodium Bicarbonate 150 meq/ (Dextrose) 1,000 mls @ 150 mls/hr IV Q6H [facility] Last Admin: 02/09/19 05:47 Dose: Not Given Sodium Chloride (Normal Saline -) 250 mls @ 3,000 mls/hr IV PRN PRN PRN Reason: Hypotension during Dialysis Stop: 02/09/19 12:13 Norepinephrine Bitartrate 8, (000 mcg/ Dextrose) 500 mls @ 18.75 mls/hr IV TITR [facility]; Protocol Last Titration: 02/09/19 06:07 Dose: 6 mcg/min, 22.5 mls/hr Vasopressin 50 units/ Sodium (Chloride) 100 mls @ 4 mls/hr IVPB ASDIR [facility]; Protocol Last Admin: 02/09/19 05:00 Dose: 3 units/hr, 6 mls/hr Meropenem 500 mg/ Dextrose 100 mls @ 200 mls/hr IVPB Q12H [facility] Last Admin: 02/08/19 22:25 Dose: 200 mls/hr Propofol (Diprivan -) 1,000,000 mcg in 100 mls @ 3.765 mls/hr IVPB TITR [facility]; Protocol Last Admin: 02/09/19 05:44 Dose: 30 mcg/kg/min, 22.59 mls/hr Sodium Chloride (Normal Saline -) 250 mls @ 3,000 mls/hr IV PRN PRN PRN Reason: Hypotension during Dialysis Stop: 02/09/19 23:57 Midazolam HCl 100 mg/ Sodium (Chloride) 100 mls @ 1 mls/hr IVPB TITR [facility]; Protocol Last Admin: 02/09/19 00:15 Dose: 3 mg/hr, 3 mls/hr Insulin Aspart (Novolog Vial Sliding Scale -) 1 vial SQ ACHS [facility]; Protocol Last Admin: 02/09/19 06:07 Dose: 6 units Metoprolol Tartrate (Lopressor -) 25 mg PO DAILY [facility] Last Admin: 02/08/19 10:16 Dose: Not Given Mupirocin (Bactroban Ointment (For Decolonization) -) 1 applic NS BID [facility] Stop: 02/13/19 09:59 Last Admin: 02/08/19 22:24 Dose: 1 applic Nystatin (Mycostatin Cream -) 1 applic TP Q6HPO [facility] Last Admin: 02/09/19 05:46 Dose: Not Given Pantoprazole Sodium (Protonix -) 40 mg PO DAILY [facility] Last Admin: 02/08/19 10:17 Dose: Not Given - Objective Vital Signs: Vital Signs Temperature 101.5 F H 02/09/19 06:46 Pulse Rate 92 H 02/09/19 07:54 Respiratory Rate 20 02/09/19 07:54 Blood Pressure 96/53 L 02/09/19 06:46 O2 Sat by Pulse Oximetry (%) 99 02/09/19 07:54 Constitutional: Yes: Moderate Distress Cardiovascular: Yes: Tachycardia Respiratory: Yes: Diminished, Mechanically Ventilated Gastrointestinal: Yes: Abdomen, Obese Genitourinary: Yes: Johnson Present Edema: Yes Integumentary: Yes: Pressure Ulcer, Rash, Venous Stasis Changes Wound/Incision: Yes: Open to air, Excoriated, Unapproximated Neurological: Yes: Pre-Existing Deficit, Weakness ...Motor Strength: LLE, RLE Psychiatric: Yes: Other Labs: CBC, BMP 02/09/19 05:00 02/09/19 05:00 INR, PTT INR 1.71 (0.83-1.09) H 02/09/19 05:00 Problem List - Problems (1) Noncompliance Code(s): Z91.19 - PATIENT'S NONCOMPLIANCE W OTH MEDICAL TREATMENT AND REGIMEN (2) Uncontrolled diabetes mellitus Code(s): E11.65 - TYPE 2 DIABETES MELLITUS WITH HYPERGLYCEMIA (3) NOVA (acute kidney injury) Code(s): N17.9 - ACUTE KIDNEY FAILURE, UNSPECIFIED (4) Acute metabolic encephalopathy Code(s): G93.41 - METABOLIC ENCEPHALOPATHY (5) Bilateral leg ulcer Code(s): L97.919 - NON-PRS CHRONIC ULC UNSP PRT OF R LOW LEG W UNSP SEVERITY; L97.929 - NON-PRS CHRONIC ULC UNSP PRT OF L LOW LEG W UNSP SEVERITY (6) Sepsis Code(s): A41.9 - SEPSIS, UNSPECIFIED ORGANISM Qualifiers: Sepsis type: sepsis due to unspecified organism Sepsis acute organ dysfunction status: unspecified Qualified Code(s): A41.9 - Sepsis, unspecified organism (7) Abdominal lymphadenopathy Code(s): R59.0 - LOCALIZED ENLARGED LYMPH NODES (8) Afib Code(s): I48.91 - UNSPECIFIED ATRIAL FIBRILLATION Qualifiers: Atrial fibrillation type: paroxysmal Qualified Code(s): I48.0 - Paroxysmal atrial fibrillation (9) DM2 (diabetes mellitus, type 2) Code(s): E11.9 - TYPE 2 DIABETES MELLITUS WITHOUT COMPLICATIONS Qualifiers: Diabetes mellitus equipment [employer] insulin use: with [facility] use Diabetes mellitus complication detail: with other circulatory complications (10) Morbid obesity Code(s): E66.01 - MORBID (SEVERE) OBESITY DUE TO EXCESS CALORIES (11) Sleep apnea Code(s): G47.30 - SLEEP APNEA, UNSPECIFIED Qualifiers: Sleep apnea type: idiopathic sleep related nonobstructive alveolar hypoventilation Qualified Code(s): G47.34 - Idiopathic sleep related nonobstructive alveolar hypoventilation (12) Toxic metabolic encephalopathy Code(s): G92 - TOXIC ENCEPHALOPATHY Assessment/Plan PATIENT IS A NON-COMPLIANT DIABETIC WITH CHRONIC LEG ULCERS WITH VENOUS STASIS THAT DOES NOT FOLLOW UP AT MY OFFICE. PATIENT HAS REFUSED CARE AND SIGNED OUTAMA MULTIPLE TIMES. HERE INTUBATED IN SEPTIC SHOCK IV ABX BP SUPPORT ON VASOPRESSIN/NOREPINEPHRINE DVT PROPHYLAXIS NPO WOUND CARE/ID CONSULT ICU CRITICAL CARE TEAM TO MANAGE VENT SETTINGS ARF NEPHROLOGY EVAL APPRECIATED
[2019-02-09 08:59] LABS: ANISOCYTOSIS 1+; MACROCYTOSIS 0; PLATELET ESTIMATE NORMAL
[2019-02-09] MEDS: METOPROLOL TARTRATE 25 MG TABLET (FP) PO SCH (09:29)
[2019-02-09] MEDS: GABAPENTIN 300 MG CAPSULE (FP) PO SCH (09:30)
[2019-02-09] MEDS: BUDESONIDE/FORMETEROL FUMARATE 80/4.5 mcg INHALER IH SCH ×2 (09:30→21:31)
[2019-02-09] MEDS: PANTOPRAZOLE 40 MG TABLET (FP) PO SCH (09:30)
[2019-02-09] MEDS: MUPIROCIN 2% TOPICAL OINTMENT FOR DECOLONIZATION NS SCH ×2 (10:30→21:28)
[2019-02-09] MEDS: MEROPENEM 500 MG in DEXTROSE 5%-WATER 100 ML IVPB SCH ×2 (11:41→21:30)
[2019-02-09] MEDS ORDERED: PANTOPRAZOLE SODIUM 40 MG VIAL IVPUSH SCH (11:45)
--- NOTE | 2019-02-09 12:15 | PN ---
Teaching Attending Note Name of Resident: Hermes Lazcano ATTENDING PHYSICIAN STATEMENT I saw and evaluated the patient. I reviewed the resident's note and discussed the case with the resident. I agree with the resident's findings and plan as documented. SUBJECTIVE: Pt seen and examined in the ICU. Remains intubated, sedated on levophed and vasopressin gtts. OBJECTIVE: Vital Signs Period Temp Pulse Resp BP Sys/Callahan Pulse Ox Last 24 Hr 96 F-101.7 F 84-122 18-29 62-197/34-163 98-100 Intake & Output 02/06/19 02/07/19 02/08/19 02/09/19 23:59 23:59 23:59 23:59 Intake Total 6340 2126.8 Output Total 456 700 Balance 5884 1426.8 Weight 125.5 kg 134.445 kg Gen: intubated, sedated Heart: RRR Lung: decreased breath sounds at the bases Abd: soft, nontender Ext: erythematous, excoriated CBC, BMP 02/09/19 05:00 02/09/19 05:00 Active Medications Albumin Human (Albumin Human 25%) 12.5 gm IVPB Q30M [facility] OF [facility] Budesonide/Formoterol Fumarate (Symbicort 80/4.5mcg -) 2 puff IH BID [facility] Last Admin: 02/09/19 09:30 Dose: Not Given Chlorhexidine Gluconate (Hibiclens For Decolonization -) 1 applic TP HS [facility] Last Admin: 02/08/19 22:24 Dose: 1 applic Gabapentin (Neurontin -) 300 mg PO DAILY [facility] Last Admin: 02/09/19 09:30 Dose: Not Given Heparin Sodium (Porcine) (Heparin -) 5,000 unit SQ TID [facility] Last Admin: 02/09/19 05:46 Dose: 5,000 unit Sodium Chloride (Normal Saline -) 250 mls @ 3,000 mls/hr IV PRN PRN PRN Reason: Hypotension during Dialysis Stop: 02/09/19 09:39 Sodium Chloride (Normal Saline -) 250 mls @ 3,000 mls/hr IV PRN PRN PRN Reason: Hypotension during Dialysis Stop: 02/09/19 12:13 Norepinephrine Bitartrate 8, (000 mcg/ Dextrose) 500 mls @ 18.75 mls/hr IV TITR [facility]; Protocol Last Titration: 02/09/19 09:00 Dose: 8 mcg/min, 30 mls/hr Vasopressin 50 units/ Sodium (Chloride) 100 mls @ 4 mls/hr IVPB ASDIR [facility]; Protocol Last Titration: 02/09/19 09:00 Dose: 4 units/hr, 8 mls/hr Meropenem 500 mg/ Dextrose 100 mls @ 200 mls/hr IVPB Q12H [facility] Last Admin: 02/09/19 11:41 Dose: 200 mls/hr Propofol (Diprivan -) 1,000,000 mcg in 100 mls @ 3.765 mls/hr IVPB TITR [facility]; Protocol Last Admin: 02/09/19 05:44 Dose: 30 mcg/kg/min, 22.59 mls/hr Sodium Chloride (Normal Saline -) 250 mls @ 3,000 mls/hr IV PRN PRN PRN Reason: Hypotension during Dialysis Stop: 02/09/19 23:57 Midazolam HCl 100 mg/ Sodium (Chloride) 100 mls @ 1 mls/hr IVPB TITR [facility]; Protocol Last Admin: 02/09/19 00:15 Dose: 3 mg/hr, 3 mls/hr Insulin Aspart (Novolog Vial Sliding Scale -) 1 vial SQ ACHS [facility]; Protocol Last Admin: 02/09/19 11:34 Dose: 8 units Metoprolol Tartrate (Lopressor -) 25 mg PO DAILY [facility] Last Admin: 02/09/19 09:29 Dose: Not Given Mupirocin (Bactroban Ointment (For Decolonization) -) 1 applic NS BID [facility] Stop: 02/13/19 09:59 Last Admin: 02/09/19 10:30 Dose: 1 applic Nystatin (Mycostatin Cream -) 1 applic TP Q6HPO [facility] Last Admin: 02/09/19 11:45 Dose: 1 applic Pantoprazole Sodium (Protonix -) 40 mg PO DAILY [facility] Last Admin: 02/09/19 09:30 Dose: Not Given ASSESSMENT AND PLAN: Acute Respiratory Failure Cellulitis/Leg Ulcers Septic Shock Acute Kidney Injury requiring emergent HD Hyperkalemia Lactic Acidosis Atrial Fibrillation HTN DM Hyperlipidemia Anemia - continue antibiotics - f/u cultures - IVF - monitor urine output, creatinine - check CVP - titrate pressors to maintain MAP >65 - rate control - HD per renal - sedate for vent synchrony - DVT/GI prophylaxis critical care time spent in reviewing chart, evaluating patient and formulating plan 35 min
--- NOTE | 2019-02-09 13:07 | PN ---
Progress Note, Physician History of Present Illness: Pt seen and examined at bedside. She remains in the ICU. She is currently getting HD. - Current Medication List Current Medications: Active Medications Albumin Human (Albumin Human 25%) 12.5 gm IVPB Q30M [facility] Stop: 02/09/19 14:31 Budesonide/Formoterol Fumarate (Symbicort 80/4.5mcg -) 2 puff IH BID [facility] Last Admin: 02/09/19 09:30 Dose: Not Given Chlorhexidine Gluconate (Hibiclens For Decolonization -) 1 applic TP HS [facility] Last Admin: 02/08/19 22:24 Dose: 1 applic Gabapentin (Neurontin -) 300 mg PO DAILY [facility] Last Admin: 02/09/19 09:30 Dose: Not Given Heparin Sodium (Porcine) (Heparin -) 5,000 unit SQ TID [facility] Last Admin: 02/09/19 05:46 Dose: 5,000 unit Sodium Chloride (Normal Saline -) 250 mls @ 3,000 mls/hr IV PRN PRN PRN Reason: Hypotension during Dialysis Stop: 02/09/19 09:39 Sodium Chloride (Normal Saline -) 250 mls @ 3,000 mls/hr IV PRN PRN PRN Reason: Hypotension during Dialysis Stop: 02/09/19 12:13 Norepinephrine Bitartrate 8, (000 mcg/ Dextrose) 500 mls @ 18.75 mls/hr IV TITR [facility]; Protocol Last Titration: 02/09/19 09:00 Dose: 8 mcg/min, 30 mls/hr Vasopressin 50 units/ Sodium (Chloride) 100 mls @ 4 mls/hr IVPB ASDIR [facility]; Protocol Last Titration: 02/09/19 09:00 Dose: 4 units/hr, 8 mls/hr Meropenem 500 mg/ Dextrose 100 mls @ 200 mls/hr IVPB Q12H [facility] Last Admin: 02/09/19 11:41 Dose: 200 mls/hr Propofol (Diprivan -) 1,000,000 mcg in 100 mls @ 3.765 mls/hr IVPB TITR [facility]; Protocol Last Admin: 02/09/19 05:44 Dose: 30 mcg/kg/min, 22.59 mls/hr Sodium Chloride (Normal Saline -) 250 mls @ 3,000 mls/hr IV PRN PRN PRN Reason: Hypotension during Dialysis Stop: 02/09/19 23:57 Midazolam HCl 100 mg/ Sodium (Chloride) 100 mls @ 1 mls/hr IVPB TITR [facility]; Protocol Last Admin: 02/09/19 00:15 Dose: 3 mg/hr, 3 mls/hr Insulin Aspart (Novolog Vial Sliding Scale -) 1 vial SQ ACHS [facility]; Protocol Last Admin: 02/09/19 11:34 Dose: 8 units Metoprolol Tartrate (Lopressor -) 25 mg PO DAILY [facility] Last Admin: 02/09/19 09:29 Dose: Not Given Mupirocin (Bactroban Ointment (For Decolonization) -) 1 applic NS BID [facility] Stop: 02/13/19 09:59 Last Admin: 02/09/19 10:30 Dose: 1 applic Nystatin (Mycostatin Cream -) 1 applic TP Q6HPO [facility] Last Admin: 02/09/19 11:45 Dose: 1 applic Pantoprazole Sodium (Protonix -) 40 mg PO DAILY [facility] Last Admin: 02/09/19 09:30 Dose: Not Given - Objective Vital Signs: Vital Signs Temperature 101.2 F H 02/09/19 12:10 Pulse Rate 115 H 02/09/19 12:15 Respiratory Rate 26 H 02/09/19 12:15 Blood Pressure 93/57 L 02/09/19 12:15 O2 Sat by Pulse Oximetry (%) 100 02/09/19 10:00 Constitutional: Yes: Calm Eyes: Yes: Conjunctiva Clear HENT: Yes: Atraumatic Neck: Yes: Supple Cardiovascular: Yes: S1, S2 Respiratory: Yes: Mechanically Ventilated Gastrointestinal: Yes: Soft, Abdomen, Obese Genitourinary: Yes: Johnson Present Musculoskeletal: Yes: Muscle Weakness Edema: Yes Edema: LUE: 1+, RUE: 1+, LLE: 2+, RLE: 2+ Integumentary: Yes: Other (cellulitis of lower ext, malodorous wounds) Neurological: Yes: Lethargy Labs: CBC, BMP 02/09/19 05:00 02/09/19 05:00 INR, PTT INR 1.71 (0.83-1.09) H 02/09/19 05:00 - ....Imaging Chest X-ray: Report Reviewed Problem List - Problems (1) NOVA (acute kidney injury) Code(s): N17.9 - ACUTE KIDNEY FAILURE, UNSPECIFIED (2) Acute metabolic encephalopathy Code(s): G93.41 - METABOLIC ENCEPHALOPATHY (3) Sepsis Code(s): A41.9 - SEPSIS, UNSPECIFIED ORGANISM Qualifiers: Sepsis type: sepsis due to unspecified organism Sepsis acute organ dysfunction status: unspecified Qualified Code(s): A41.9 - Sepsis, unspecified organism (4) ARF (acute renal failure) Code(s): N17.9 - ACUTE KIDNEY FAILURE, UNSPECIFIED Assessment/Plan Current Medications Generic Name Dose Route Start Last Admin Trade Name Freq PRN Reason Stop Dose Admin Albumin Human 12.5 gm 02/09/19 13:00 Albumin Human 25% IVPB 02/09/19 14:31 Q30M [facility] Budesonide/Formoterol Fumarate 2 puff 02/08/19 10:00 02/09/19 09:30 Symbicort 80/4.5mcg - IH Not Given BID [facility] Chlorhexidine Gluconate 1 applic 02/08/19 22:00 02/08/19 22:24 Hibiclens For Decolonization - TP 1 applic HS [facility] Administration Gabapentin 300 mg 02/08/19 10:00 02/09/19 09:30 Neurontin - PO Not Given DAILY [facility] Heparin Sodium (Porcine) 5,000 unit 02/08/19 22:00 02/09/19 05:46 Heparin - SQ 5,000 unit TID [facility] Administration Sodium Chloride 250 mls @ 3,000 mls/hr 02/08/19 09:39 Normal Saline - IV 02/09/19 09:39 PRN PRN Hypotension during Dialysis Sodium Chloride 250 mls @ 3,000 mls/hr 02/08/19 12:13 Normal Saline - IV 02/09/19 12:13 PRN PRN Hypotension during Dialysis Norepinephrine Bitartrate 8, 500 mls @ 18.75 mls/hr 02/08/19 13:00 02/09/19 09:00 000 mcg/ Dextrose IV 8 mcg/min TITR [facility] 30 mls/hr Titration Protocol 5 MCG/MIN Vasopressin 50 units/ Sodium 100 mls @ 4 mls/hr 02/08/19 13:30 02/09/19 12:00 Chloride IVPB 3 units/hr ASDIR [facility] 6 mls/hr Titration Protocol 2 UNITS/HR Meropenem 500 mg/ Dextrose 100 mls @ 200 mls/hr 02/08/19 22:00 02/09/19 11:41 IVPB 200 mls/hr Q12H [facility] Administration Propofol 1,000,000 mcg in 100 mls @ 3.765 mls/hr 02/08/19 22:00 02/09/19 12: 30 Diprivan - IVPB 50 mcg/kg/min TITR [facility] 37.65 mls/hr Titration Protocol 5 MCG/KG/MIN Sodium Chloride 250 mls @ 3,000 mls/hr 02/08/19 23:57 Normal Saline - IV 02/09/19 23:57 PRN PRN Hypotension during Dialysis Midazolam HCl 100 mg/ Sodium 100 mls @ 1 mls/hr 02/09/19 00:15 02/09/19 12:40 Chloride IVPB 5 mg/hr TITR [facility] 5 mls/hr Titration Protocol 1 MG/HR Insulin Aspart 1 vial 02/08/19 11:00 02/09/19 11:34 Novolog Vial Sliding Scale - SQ 8 units ACHS [facility] Administration Protocol Metoprolol Tartrate 25 mg 02/08/19 10:00 02/09/19 09:29 Lopressor - PO Not Given DAILY [facility] Mupirocin 1 applic 02/08/19 10:00 02/09/19 10:30 Bactroban Ointment (For Decolonization) - NS 02/13/19 09:59 1 applic BID [facility] Administration Nystatin 1 applic 02/08/19 12:00 02/09/19 11:45 Mycostatin Cream - TP 1 applic Q6HPO [facility] Administration Pantoprazole Sodium 40 mg 02/08/19 10:00 02/09/19 09:30 Protonix - PO Not Given DAILY [facility] Impression 1. NOVA 2. hyperkalemia 3. obesity 4. DM 5. a-fib 6. HTN 7. chronic lower extremity ulcers 8. gastritis 9. sepsis 10. hyperglycemia 11. metabolic acidosis 12. acute resp failure Plan - pt getting second HD today - monitor urine output - monitor renal function - maintain map of 65 - replace mag - potassium is improved - follow cultures - cont wound care
--- NOTE | 2019-02-09 13:15 | PN ---
Progress Note, Physician History of Present Illness: continues to be intubated and sedated being dialysed - Current Medication List Current Medications: Active Medications Albumin Human (Albumin Human 25%) 12.5 gm IVPB Q30M [facility] Stop: 02/09/19 14:31 Budesonide/Formoterol Fumarate (Symbicort 80/4.5mcg -) 2 puff IH BID [facility] Last Admin: 02/09/19 09:30 Dose: Not Given Chlorhexidine Gluconate (Hibiclens For Decolonization -) 1 applic TP HS [facility] Last Admin: 02/08/19 22:24 Dose: 1 applic Gabapentin (Neurontin -) 300 mg PO DAILY [facility] Last Admin: 02/09/19 09:30 Dose: Not Given Heparin Sodium (Porcine) (Heparin -) 5,000 unit SQ TID [facility] Last Admin: 02/09/19 05:46 Dose: 5,000 unit Sodium Chloride (Normal Saline -) 250 mls @ 3,000 mls/hr IV PRN PRN PRN Reason: Hypotension during Dialysis Stop: 02/09/19 09:39 Sodium Chloride (Normal Saline -) 250 mls @ 3,000 mls/hr IV PRN PRN PRN Reason: Hypotension during Dialysis Stop: 02/09/19 12:13 Norepinephrine Bitartrate 8, (000 mcg/ Dextrose) 500 mls @ 18.75 mls/hr IV TITR [facility]; Protocol Last Titration: 02/09/19 09:00 Dose: 8 mcg/min, 30 mls/hr Vasopressin 50 units/ Sodium (Chloride) 100 mls @ 4 mls/hr IVPB ASDIR [facility]; Protocol Last Titration: 02/09/19 12:00 Dose: 3 units/hr, 6 mls/hr Meropenem 500 mg/ Dextrose 100 mls @ 200 mls/hr IVPB Q12H [facility] Last Admin: 02/09/19 11:41 Dose: 200 mls/hr Propofol (Diprivan -) 1,000,000 mcg in 100 mls @ 3.765 mls/hr IVPB TITR [facility]; Protocol Last Titration: 02/09/19 12:30 Dose: 50 mcg/kg/min, 37.65 mls/hr Sodium Chloride (Normal Saline -) 250 mls @ 3,000 mls/hr IV PRN PRN PRN Reason: Hypotension during Dialysis Stop: 02/09/19 23:57 Midazolam HCl 100 mg/ Sodium (Chloride) 100 mls @ 1 mls/hr IVPB TITR [facility]; Protocol Last Titration: 02/09/19 12:40 Dose: 5 mg/hr, 5 mls/hr Insulin Aspart (Novolog Vial Sliding Scale -) 1 vial SQ ACHS [facility]; Protocol Last Admin: 02/09/19 11:34 Dose: 8 units Metoprolol Tartrate (Lopressor -) 25 mg PO DAILY [facility] Last Admin: 02/09/19 09:29 Dose: Not Given Mupirocin (Bactroban Ointment (For Decolonization) -) 1 applic NS BID [facility] Stop: 02/13/19 09:59 Last Admin: 02/09/19 10:30 Dose: 1 applic Nystatin (Mycostatin Cream -) 1 applic TP Q6HPO [facility] Last Admin: 02/09/19 11:45 Dose: 1 applic Pantoprazole Sodium (Protonix -) 40 mg PO DAILY [facility] Last Admin: 02/09/19 09:30 Dose: Not Given - Objective Vital Signs: Vital Signs Temperature 101.2 F H 02/09/19 12:10 Pulse Rate 115 H 02/09/19 12:15 Respiratory Rate 26 H 02/09/19 12:15 Blood Pressure 93/57 L 02/09/19 12:15 O2 Sat by Pulse Oximetry (%) 100 02/09/19 10:00 Constitutional: Yes: Other Cardiovascular: Yes: Regular Rate and Rhythm Respiratory: Yes: Intubated, Mechanically Ventilated Gastrointestinal: Yes: Normal Bowel Sounds, Soft Musculoskeletal: Yes: WNL Extremities: Yes: Other Neurological: Yes: Other Labs: CBC, BMP 02/09/19 05:00 02/09/19 05:00 INR, PTT INR 1.71 (0.83-1.09) H 02/09/19 05:00 Assessment/Plan Problem List - Problems (1) Bilateral leg ulcer Code(s): L97.919 - NON-PRS CHRONIC ULC UNSP PRT OF R LOW LEG W UNSP SEVERITY; L97.929 - NON-PRS CHRONIC ULC UNSP PRT OF L LOW LEG W UNSP SEVERITY (2) Sepsis Code(s): A41.9 - SEPSIS, UNSPECIFIED ORGANISM Qualifiers: Sepsis type: sepsis due to unspecified organism Sepsis acute organ dysfunction status: unspecified Qualified Code(s): A41.9 - Sepsis, unspecified organism (3) ARF (acute renal failure) Code(s): N17.9 - ACUTE KIDNEY FAILURE, UNSPECIFIED (4) Afib Code(s): I48.91 - UNSPECIFIED ATRIAL FIBRILLATION Qualifiers: Atrial fibrillation type: paroxysmal Qualified Code(s): I48.0 - Paroxysmal atrial fibrillation (5) Altered mental status Code(s): R41.82 - ALTERED MENTAL STATUS, UNSPECIFIED (6) Cellulitis Code(s): L03.90 - CELLULITIS, UNSPECIFIED Qualifiers: Site of cellulitis: unspecified site Qualified Code(s): L03.90 - Cellulitis , unspecified (7) DM2 (diabetes mellitus, type 2) Code(s): E11.9 - TYPE 2 DIABETES MELLITUS WITHOUT COMPLICATIONS Qualifiers: Diabetes mellitus equipment [employer] insulin use: with [facility] use Diabetes mellitus complication detail: with other circulatory complications (8) Encephalopathy due to metabolic factor or toxin Code(s): [id number] - (9) HTN (hypertension) Code(s): I10 - ESSENTIAL (PRIMARY) HYPERTENSION (10) Hyperkalemia Code(s): E87.5 - HYPERKALEMIA (11) Lactic acidosis Code(s): E87.2 - ACIDOSIS (12) Leukocytosis Code(s): D72.829 - ELEVATED WHITE BLOOD CELL COUNT, UNSPECIFIED (13) Metabolic acidosis Code(s): E87.2 - ACIDOSIS (14) Morbid obesity Code(s): E66.01 - MORBID (SEVERE) OBESITY DUE TO EXCESS CALORIES (15) Severe sepsis Code(s): A41.9 - SEPSIS, UNSPECIFIED ORGANISM; R65.20 - SEVERE SEPSIS WITHOUT SEPTIC SHOCK (16) Venous stasis Code(s): I87.8 - OTHER SPECIFIED DISORDERS OF VEINS Assessment/Plan 53 y.o. female with PMH of chronic b/l LE ulcers, cellulitis, T2 DM, HTN, HLD, CKD, Anemia, GERD, obesity, AFIB, Asthma, and bipolar disorder brought to the ER by her brother for lethargy/AMS for the last several days noted to be in ARF , with leukocytosis, and b/l LE ulcers with malodorous drainage/erythema/ warmth. Currently receiving HD and hypotensive on Vasopressors Shock possibly from Sepsis-- on vasopressors AMS/Toxic metabolic encephalopathy/Uremia Infected b/l LE ulcers/cellulitis ARF on CKD - emergent HD started Hyperkalemia Acidosis Uremia Leukocytosis Lactic acidosis AFIB DM Morbid Obesity Asthma Bipolar d.o. HTN HLD Meropenem resp failure monitor bp dialysis very close watch cc time: 40 min
[2019-02-09] MEDS: ALBUMIN HUMAN 25% 12.5 GM/50 ML VIAL IVPB SCH ×3 (13:45→16:26)
[2019-02-09] MEDS ORDERED: NOREPINEPHRINE BITARTRATE 4 MG/4 ML ML IV ONE (13:52)
[2019-02-09] MEDS: NOREPINEPHRINE BITARTRATE 8,000 MCG in DEXTROSE 5%-WATER - 492 ML IV SCH (13:57)
--- NOTE | 2019-02-09 16:08 | PN ---
Physical Exam: SUBJECTIVE: Patient seen and examined at bedside in ICU this AM. Pt intubated and sedated on vaso and levo gtt. OBJECTIVE: Vital Signs Period Temp Pulse Resp BP Sys/Callahan Pulse Ox Last 24 Hr 96 F-101.7 F 78-129 18-31 62-197/36-163 99-100 GENERAL: The patient is sedated and intubated. ENT: ET tube in place NECK: Trachea midline, full range of motion, supple. LUNGS: Breath sounds equal, clear to auscultation bilaterally, no wheezes, no crackles, no accessory muscle use. HEART: Regular rate and rhythm, S1, S2 without murmur, rub or gallop. ABDOMEN: Soft, nontender, nondistended, normoactive bowel sounds, no guarding, no rebound. EXTREMITIES: B/L LE venous stasis ulcers without any abscess appreciated. Dressing reapplied b/l. NEUROLOGICAL: RASS -5 on propofol. SKIN: b/l LE venous stasis ulcers with areas of loss of epidermis Laboratory Results - last 24 hr 02/08/19 02/08/19 02/08/19 01:45 16:00 16:40 WBC RBC Hgb Hct MCV MCH MCHC RDW Plt Count MPV Absolute Neuts (auto) Neutrophils % Neutrophils % (Manual) Band Neutrophils % Lymphocytes % Lymphocytes % (Manual) Monocytes % Monocytes % (Manual) Eosinophils % Eosinophils % (Manual) Basophils % Basophils % (Manual) Myelocytes % (Man) Promyelocytes % (Man) Blast Cells % (Manual) Nucleated RBC % Metamyelocytes Hypochromia Platelet Estimate Polychromasia Poikilocytosis Basophilic Stippling Anisocytosis Microcytosis Macrocytosis PT with INR INR PTT (Actin FS) Anticoagulation Therapy Puncture Site ABG pH ABG pCO2 at Pt Temp ABG pO2 at Pt Temp ABG HCO3 ABG O2 Sat (Measured) ABG O2 Content ABG Base Excess Kwesi Test O2 Delivery Device Oxygen Flow Rate Vent Mode Vent Rate Mechanical Rate PEEP Pressure Support Vent Sodium 137 Potassium 4.0 Chloride 103 Carbon Dioxide 17 L Anion Gap 17 H BUN 83.2 H Creatinine 5.8 H Est GFR (CKD-EPI)AfAm 8.77 Est GFR (CKD-EPI)NonAf 7.57 POC Glucometer Random Glucose 345 H Hemoglobin A1c % 8.3 H Lactic Acid Calcium 7.7 L Phosphorus Magnesium Total Bilirubin AST ALT Alkaline Phosphatase Total Protein Albumin Urine Color Red Urine Appearance Turbid Urine pH 5.0 Ur Specific [place] 1.022 Urine Protein 3+ H Urine Glucose (UA) Trace Urine Ketones Trace H Urine Blood 3+ H Urine Nitrite Negative Urine Bilirubin 1+ H Urine Urobilinogen 0.2 Ur Leukocyte Esterase 2+ H Urine WBC (Auto) 78 Urine RBC (Auto) 4162.4 Urine Casts (Auto) 121 U Pathogenic Cast Auto None seen U Epithel Cells (Auto) 34.8 Urine Bacteria (Auto) 5.1 Urine Yeast (Auto) None seen 02/08/19 02/08/19 02/08/19 17:00 22:35 22:48 WBC RBC Hgb Hct MCV MCH MCHC RDW Plt Count MPV Absolute Neuts (auto) Neutrophils % Neutrophils % (Manual) Band Neutrophils % Lymphocytes % Lymphocytes % (Manual) Monocytes % Monocytes % (Manual) Eosinophils % Eosinophils % (Manual) Basophils % Basophils % (Manual) Myelocytes % (Man) Promyelocytes % (Man) Blast Cells % (Manual) Nucleated RBC % Metamyelocytes Hypochromia Platelet Estimate Polychromasia Poikilocytosis Basophilic Stippling Anisocytosis Microcytosis Macrocytosis PT with INR INR PTT (Actin FS) Anticoagulation Therapy No Result Required. Puncture Site Right brachial Left brachial ABG pH 7.25 L 7.33 L ABG pCO2 at Pt Temp 34.2 L 36.2 ABG pO2 at Pt Temp 139 H 364 H ABG HCO3 14.3 L 18.4 L ABG O2 Sat (Measured) 98.9 H 99.9 H ABG O2 Content 13.4 13.7 ABG Base Excess -11.6 L -6.4 L Kwesi Test Positive Positive O2 Delivery Device Ventimask Oxygen Flow Rate 50% Yes Vent Mode No Result Required. A/c Vent Rate No Result Required. Mechanical Rate No Result Required. PEEP 5.0 Pressure Support Vent No Result Required. Sodium Potassium Chloride Carbon Dioxide Anion Gap BUN Creatinine Est GFR (CKD-EPI)AfAm Est GFR (CKD-EPI)NonAf POC Glucometer 277 Random Glucose Hemoglobin A1c % Lactic Acid Calcium Phosphorus Magnesium Total Bilirubin AST ALT Alkaline Phosphatase Total Protein Albumin Urine Color Urine Appearance Urine pH Ur Specific [place] Urine Protein Urine Glucose (UA) Urine Ketones Urine Blood Urine Nitrite Urine Bilirubin Urine Urobilinogen Ur Leukocyte Esterase Urine WBC (Auto) Urine RBC (Auto) Urine Casts (Auto) U Pathogenic Cast Auto U Epithel Cells (Auto) Urine Bacteria (Auto) Urine Yeast (Auto) 02/09/19 02/09/19 02/09/19 05:00 05:00 05:00 WBC 15.7 H RBC 3.00 L Hgb 8.5 L Hct 24.9 L D MCV 83.2 D MCH 28.3 MCHC 34.0 RDW 15.7 H Plt Count 225 D MPV 9.0 D Absolute Neuts (auto) 14.6 H Neutrophils % 93.0 H Neutrophils % (Manual) 95.0 H Band Neutrophils % 0.0 Lymphocytes % 3.0 L Lymphocytes % (Manual) 1.0 L D Monocytes % 1.7 L Monocytes % (Manual) 2 L D Eosinophils % 2.3 D Eosinophils % (Manual) 2.0 D Basophils % 0.0 Basophils % (Manual) 0.0 Myelocytes % (Man) 0 D Promyelocytes % (Man) 0 Blast Cells % (Manual) 0 Nucleated RBC % 0 Metamyelocytes 0 Hypochromia 0 Platelet Estimate Normal Polychromasia 0 Poikilocytosis 0 Basophilic Stippling 1+ Anisocytosis 1+ Microcytosis 1+ Macrocytosis 0 PT with INR 20.30 H INR 1.71 H PTT (Actin FS) 30.3 Anticoagulation Therapy Puncture Site ABG pH ABG pCO2 at Pt Temp ABG pO2 at Pt Temp ABG HCO3 ABG O2 Sat (Measured) ABG O2 Content ABG Base Excess Kwesi Test O2 Delivery Device Oxygen Flow Rate Vent Mode Vent Rate Mechanical Rate PEEP Pressure Support Vent Sodium 140 Potassium 3.8 Chloride 104 Carbon Dioxide 23 Anion Gap 13 BUN 85.8 H Creatinine 4.6 H Est GFR (CKD-EPI)AfAm 11.61 Est GFR (CKD-EPI)NonAf 10.01 POC Glucometer Random Glucose 198 H Hemoglobin A1c % Lactic Acid Calcium 7.2 L Phosphorus 5.7 H Magnesium 1.3 L Total Bilirubin 0.4 AST 23 ALT 28 Alkaline Phosphatase 98 Total Protein 5.3 L Albumin 2.4 L Urine Color Urine Appearance Urine pH Ur Specific [place] Urine Protein Urine Glucose (UA) Urine Ketones Urine Blood Urine Nitrite Urine Bilirubin Urine Urobilinogen Ur Leukocyte Esterase Urine WBC (Auto) Urine RBC (Auto) Urine Casts (Auto) U Pathogenic Cast Auto U Epithel Cells (Auto) Urine Bacteria (Auto) Urine Yeast (Auto) 02/09/19 02/09/19 02/09/19 05:00 05:37 11:29 WBC RBC Hgb Hct MCV MCH MCHC RDW Plt Count MPV Absolute Neuts (auto) Neutrophils % Neutrophils % (Manual) Band Neutrophils % Lymphocytes % Lymphocytes % (Manual) Monocytes % Monocytes % (Manual) Eosinophils % Eosinophils % (Manual) Basophils % Basophils % (Manual) Myelocytes % (Man) Promyelocytes % (Man) Blast Cells % (Manual) Nucleated RBC % Metamyelocytes Hypochromia Platelet Estimate Polychromasia Poikilocytosis Basophilic Stippling Anisocytosis Microcytosis Macrocytosis PT with INR INR PTT (Actin FS) Anticoagulation Therapy Puncture Site ABG pH ABG pCO2 at Pt Temp ABG pO2 at Pt Temp ABG HCO3 ABG O2 Sat (Measured) ABG O2 Content ABG Base Excess Kwesi Test O2 Delivery Device Oxygen Flow Rate Vent Mode Vent Rate Mechanical Rate PEEP Pressure Support Vent Sodium Potassium Chloride Carbon Dioxide Anion Gap BUN Creatinine Est GFR (CKD-EPI)AfAm Est GFR (CKD-EPI)NonAf POC Glucometer 206 260 Random Glucose Hemoglobin A1c % Lactic Acid 1.4 Calcium Phosphorus Magnesium Total Bilirubin AST ALT Alkaline Phosphatase Total Protein Albumin Urine Color Urine Appearance Urine pH Ur Specific [place] Urine Protein Urine Glucose (UA) Urine Ketones Urine Blood Urine Nitrite Urine Bilirubin Urine Urobilinogen Ur Leukocyte Esterase Urine WBC (Auto) Urine RBC (Auto) Urine Casts (Auto) U Pathogenic Cast Auto U Epithel Cells (Auto) Urine Bacteria (Auto) Urine Yeast (Auto) Active Medications Generic Name Dose Route Start Last Admin Trade Name Freq PRN Reason Stop Dose Admin Budesonide/Formoterol Fumarate 2 puff 02/08/19 10:00 02/09/19 09:30 Symbicort 80/4.5mcg - IH Not Given BID LANCE Chlorhexidine Gluconate 1 applic 02/08/19 22:00 02/08/19 22:24 Hibiclens For Decolonization - TP 1 applic HS LANCE Administration Gabapentin 300 mg 02/08/19 10:00 02/09/19 09:30 Neurontin - PO Not Given DAILY LANCE Heparin Sodium (Porcine) 5,000 unit 02/08/19 22:00 02/09/19 13:45 Heparin - SQ 5,000 unit TID LANCE Administration Sodium Chloride 250 mls @ 3,000 mls/hr 02/08/19 09:39 Normal Saline - IV 02/09/19 09:39 PRN PRN Hypotension during Dialysis Sodium Chloride 250 mls @ 3,000 mls/hr 02/08/19 12:13 Normal Saline - IV 02/09/19 12:13 PRN PRN Hypotension during Dialysis Norepinephrine Bitartrate 8, 500 mls @ 18.75 mls/hr 02/08/19 13:00 02/09/19 13:57 000 mcg/ Dextrose IV 9 mcg/min TITR LANCE 33.75 mls/hr Administration Protocol 5 MCG/MIN Vasopressin 50 units/ Sodium 100 mls @ 4 mls/hr 02/08/19 13:30 02/09/19 12:30 Chloride IVPB 3 units/hr ASDIR LANCE 6 mls/hr Titration Protocol 2 UNITS/HR Meropenem 500 mg/ Dextrose 100 mls @ 200 mls/hr 02/08/19 22:00 02/09/19 11:41 IVPB 200 mls/hr Q12H LANCE Administration Propofol 1,000,000 mcg in 100 mls @ 3.765 mls/hr 02/08/19 22:00 02/09/19 12: 30 Diprivan - IVPB 50 mcg/kg/min TITR LANCE 37.65 mls/hr Titration Protocol 5 MCG/KG/MIN Sodium Chloride 250 mls @ 3,000 mls/hr 02/08/19 23:57 Normal Saline - IV 02/09/19 23:57 PRN PRN Hypotension during Dialysis Midazolam HCl 100 mg/ Sodium 100 mls @ 1 mls/hr 02/09/19 00:15 02/09/19 12:40 Chloride IVPB 5 mg/hr TITR LANCE 5 mls/hr Titration Protocol 1 MG/HR Insulin Aspart 1 vial 02/08/19 11:00 02/09/19 11:34 Novolog Vial Sliding Scale - SQ 8 units ACHS LANCE Administration Protocol Metoprolol Tartrate 25 mg 02/08/19 10:00 02/09/19 09:29 Lopressor - PO Not Given DAILY LANCE Mupirocin 1 applic 02/08/19 10:00 02/09/19 10:30 Bactroban Ointment (For Decolonization) - NS 02/13/19 09:59 1 applic BID LANCE Administration Nystatin 1 applic 02/08/19 12:00 09/16/19 11:45 Mycostatin Cream - TP 1 applic Q6HPO LANCE Administration Pantoprazole Sodium 40 mg 02/08/19 10:00 02/09/19 09:30 Protonix - PO Not Given DAILY LANCE ASSESSMENT/PLAN: Vent settings: 100% ->60% FiO2, 450TV, RR 14, PEEP 5. Pt is a 53 y/o F w a significant past medical history B/L LE chronic Venous stasis ulcerations, Chronic Afib on AC, HTN, poorly controlled T2DM, Dyslipedemia, Bipolar disorder, CKD (non-compliant with medications) who presented to [facility] via EMS 2/2 altered mental status. #Neuro-> currently sedated with a RASS of -5. - sedated Respiratory - continue symbicort - maintain SaO2>90% #RENAL: Acute Renal failure with emergent need for dialysis - Bun/Cr 169.8/11.0 - Trialysis Cath in place - Dr Terry on board- pt dialyzed -Bicarb gtt discontinued - Pt currently on Levophed 6mcg and Vasopressin 3, propofol 73and versed. - monitoring U.O./lytes and CVP to assess volume status. - repleted Mg (1.3) #CARDIO -> EKG w/ a-fib w/ RVR/septic shock on pressors - c/w vasopressin, levo -On Metoprolol Tartrate 25 Daily -Tele monitoring -Keep MAP > 65 -Repeat labs 2H post Dialysis #ID -> Sepsis likely 2/2 LE Wound Ulcers/AMS/Toxic metabolic encephalopathy/ Uremia Infected b/l LE ulcers/cellulitis, no abscess seen on exam WBC- 21.9, Lactic Acid 2.4 Urine and Blood Cultures negative, wound culture LLE: N.L.F. gram negative bacilli, MRSA, group D strep or enterococcus, RLE: L.F. G- bacilli, N.L.F, group d strep or enterococcus. -ID on board (Dr. De Leon)- thank you for your recommendations. - continue meropenem Also received 1 dose Capsofungin. #FEN D5 NS@150cc/hr Monitor Electroyltes NPO #DVT px: HEPSQTID GI PPX: pantoprazole 40 IVP #Dispo: We will continue monitoring this patient. Thank you for this consultative opportunity. Visit type - Emergency Visit Emergency Visit: Yes ED Registration Date: 02/08/19 Care time: The patient presented to the Emergency Department on the above date and was hospitalized for further evaluation of their emergent condition. - New Patient This patient is new to me today: Yes Date on this admission: 02/09/19 - Critical Care Critical Care patient: Yes Total Critical Care Time (in minutes): 35 Critical Care Statement: The care of this patient involved high complexity decision making to prevent further life threatening deterioration of the patient 's condition and/or to evaluate & treat vital organ system(s) failure or risk of failure. - Discharge Referral Referred to [facility] Med P.C.: No
[2019-02-09] MEDS: PANTOPRAZOLE SODIUM 40 MG VIAL IVPUSH SCH (17:18)
[2019-02-09] MEDS: CHLORHEXIDINE GLUCONATE 4% CLEANSER FOR DECOLONIZATION TP SCH (21:28)
[2019-02-09] MEDS ORDERED: PT OWN MED DRAWER 7, Y5N ONE (21:30)
[2019-02-09] MEDS: ACETAMINOPHEN 1000 MG/100 ML VIAL (NON FORMULARY) IVPB PRN (23:17)
[2019-02-10] MEDS: PROPOFOL 1,000,000 MCG/100 ML VIAL IVPB SCH ×7 (02:00→22:24)
[2019-02-10] MEDS: NYSTATIN 100,000 UNIT/GM TOPICAL CREAM 15 GM TUBE TP SCH ×4 (02:24→18:17)
[2019-02-10] MEDS: MIDAZOLAM 100 MG in SODIUM CHLORIDE 100 ML IVPB SCH (02:25)
[2019-02-10] MEDS: HEPARIN NA (PORCINE) 5,000 UNITS/ML 1ML VIAL SQ SCH ×2 (05:44→13:40)
[2019-02-10] MEDS: INSULIN SLIDING SCALE (NOVOLOG) 1 VIAL SQ SCH ×4 (05:59→22:18)
[2019-02-10 06:47] LABS: HEMOGLOBIN 8.6 GM/dL (10.7-15.3); MCH 29.1 pg (25.7-33.7); MCHC 34.4 g/dl (32.0-36.0); MEAN CELL VOLUME 84.7 fl (80-96); MEAN PLT VOLUME 9.4 fl (7.5-11.1); PLATELET COUNT 185 K/MM3 (134-434); RBC 2.95 M/mm3 (3.60-5.2); RDW 15.8 % (11.6-15.6); WHITE BLOOD COUNT 9.7 K/mm3 (4.0-10.0)
[2019-02-10 06:53] LABS: IRON SERUM 16 ug/dL (50-175); TOTAL IRON BINDING CAPACITY 168 ug/dL (250-450)
[2019-02-10 07:04] LABS: ALBUMIN 2.3 g/dl (3.4-5.0); BILIRUBIN,TOTAL 0.5 mg/dL (0.2-1); BLOOD UREA NITROGEN 45.9 mg/dL (7-18); CALCIUM 8.9 mg/dL (8.5-10.1); CREATININE 1.9 mg/dL (0.55-1.3); MAGNESIUM 1.9 mg/dL (1.8-2.4); PHOSPHOROUS 4.6 mg/dL (2.5-4.9); POTASSIUM 3.4 mmol/L (3.5-5.1); TOT PROT 5.3 g/dl (6.4-8.2)
[2019-02-10] MEDS ORDERED: PT OWN MED DRAWER 7, Y5N ONE ×3 (09:12→21:57)
[2019-02-10] MEDS: METOPROLOL TARTRATE 25 MG TABLET (FP) PO SCH (09:16)
[2019-02-10] MEDS: MEROPENEM 500 MG in DEXTROSE 5%-WATER 100 ML IVPB SCH ×2 (09:16→22:01)
[2019-02-10] MEDS: PANTOPRAZOLE SODIUM 40 MG VIAL IVPUSH SCH (09:18)
[2019-02-10] MEDS: MUPIROCIN 2% TOPICAL OINTMENT FOR DECOLONIZATION NS SCH ×2 (09:24→22:01)
[2019-02-10] MEDS: GABAPENTIN 300 MG CAPSULE (FP) PO SCH (09:24)
[2019-02-10] MEDS: BUDESONIDE/FORMETEROL FUMARATE 80/4.5 mcg INHALER IH SCH ×2 (09:25→22:07)
--- NOTE | 2019-02-10 10:36 | CONSULT ---
- Consultation REQUESTING PROVIDER: CONSULT REQUEST: We have been asked to surgically evaluate this patient for venous stasis ulcer PCP:Onur Maxwell HISTORY OF PRESENT ILLNESS: 53 y/o F w/ PMHx non-compliance, Morbid obesity, B/L LE chronic Venous stasis ulcerations, Chronic Afib on AC, HTN, poorly controlled T2DM, Dyslipedemia, Bipolar disorder, admitted 11/13 with AMS. Vascular consulted for venous stasis ulcers. Patient seen Dr Calderon at wound care clinic for her b/l LE ulcers for years. She had a debridement in May [address] Calderon in the OR, however she not seen Dr Calderon since her debridement last year. Pt presented to [facility] via EMS 2/ altered mental status. Per ED, pt's brother at bedside endorsing pt has been confused for past several days; brother unable to provide further history. No family at bedside at time of examination. ICU team consulted as pt requiring emergent dialysis as pt found to have acute renal failure with hyperkalemia, acidosis and uremia. Patient was intubated over the 02/08 after becoming obtunded and progressively dyspneic/tachypneic. She is currently on a vent and sedated. PMHx: as above PSHx: appendectomy (Dr Dean, 06/2018) Vital Signs Temp 100.1 F H 02/10/19 06:40 Pulse 95 H 02/10/19 08:30 Resp 26 H 02/10/19 08:19 BP 129/88 02/10/19 08:30 Pulse Ox 99 02/10/19 08:19 Intake & Output 02/09/19 02/09/19 02/10/19 11:59 23:59 11:59 Intake Total 2126.8 2525 1044 Output Total 700 1850 400 Balance 1426.8 675 644 Weight 296 lb 6.4 oz 296 lb Intake: IV 1926.8 2225 844 D5W+ NAHCO3 1450 D5w - 850 ml @ 150 mls/hr 1301 IV ASDIR LANCE with Sodium Bicarbonate 8.4% - 150 Meq Rx#:[id number] DIPRIVAN - 1,000,000 mcg 219 385 502 In 100 ml @ 5 MCG/KG/MIN 3.765 mls/hr IVPB TITR LANCE Rx#:[id number] Levophed - 8,000 Mcg In 347.5 340 216 D5w - 492 ml @ 5 MCG/MIN 18.75 mls/hr IV TITR LANCE Rx#:[id number] Pitressin - 50 Units In 35.3 69 Normal Saline - 97.5 ml @ 2 UNITS/HR 4 mls/hr IVPB ASDIR LANCE Rx#: [id number] Versed - 100 mg In Normal 24 50 57 Saline - 100 ml @ 1 MG/ HR 1 mls/hr IVPB TITR LANCE Rx#:[id number] IVPB 200 300 200 Output: Urine 700 1150 400 Johnson 700 1150 400 Fluid Removed, 700 Hemodialysis Other: Voiding Method Indwelling Catheter Indwelling Catheter Bowel Movement No Weight Measurement Method Built in Bedscale Built in Bedscale CBC, BMP 02/10/19 05:30 02/10/19 05:30 REVIEW OF SYSTEMS: Unable to obtain. PHYSICAL EXAM: GENERAL:Sedated HEAD: Normal with no signs of trauma. Intubated on a vent LOWER EXTREMITIES: b/l les with 2+ edema, multiple superficial ulcerations by islands of skin RLE <<LLE. All wound bases appear clean with granular tissue present, no erythema, Scant serous drainage. Mild erythema over b/l les Vasc: Bounding right dp, left dp with biphasic doppler signal Problem List - Problems (1) Bilateral leg ulcer Assessment/Plan: A/P: 53 y/o F w/ PMHx non-compliance, Morbid obesity, B/L LE chronic Venous stasis ulcerations, Chronic Afib on AC, HTN, poorly controlled T2DM, Dyslipedemia, Bipolar disorder, admitted 11/13 with AMS. Vascular consulted for venous stasis ulcers. b/l les with multiple venous stasis ulcers L>>R. Resolving cellulitis -Continue daily dressing changes with xeroform and kerlix -B/L le elevation while at rest -glucose control -abx per ID d/w attending Dr Calderon Code(s): L97.919 - NON-PRS CHRONIC ULC UNSP PRT OF R LOW LEG W UNSP SEVERITY; L97.929 - NON-PRS CHRONIC ULC UNSP PRT OF L LOW LEG W UNSP SEVERITY
--- NOTE | 2019-02-10 10:56 | PN ---
Progress Note, Physician Chief Complaint: Acute Respiratory Failure Cellulitis/Infected Leg Ulcers Septic Shock Acute Kidney Injury requiring emergent HD Hyperkalemia Lactic Acidosis Atrial Fibrillation HTN DM Hyperlipidemia Anemia History of Present Illness: Remains in ICU Intubated now On pressors, Seen by Nephrology Dialyzed yesterday - Current Medication List Current Medications: Active Medications Acetaminophen (Ofirmev Injection -) 1,000 mg IVPB Q6H PRN PRN Reason: FEVER Last Admin: 02/09/19 23:17 Dose: 1,000 mg Budesonide/Formoterol Fumarate (Symbicort 80/4.5mcg -) 2 puff IH BID LANCE Last Admin: 02/10/19 09:25 Dose: Not Given Chlorhexidine Gluconate (Hibiclens For Decolonization -) 1 applic TP HS LANCE Last Admin: 02/09/19 21:28 Dose: 1 applic Gabapentin (Neurontin -) 300 mg PO DAILY LANCE Last Admin: 02/10/19 09:24 Dose: Not Given Heparin Sodium (Porcine) (Heparin -) 5,000 unit SQ TID LANCE Last Admin: 02/10/19 05:44 Dose: 5,000 unit Norepinephrine Bitartrate 8, (000 mcg/ Dextrose) 500 mls @ 18.75 mls/hr IV TITR LANCE; Protocol Last Titration: 02/10/19 09:25 Dose: 4 mcg/min, 15 mls/hr Vasopressin 50 units/ Sodium (Chloride) 100 mls @ 4 mls/hr IVPB ASDIR LANCE; Protocol Last Titration: 02/10/19 08:30 Dose: 2 units/hr, 4 mls/hr Meropenem 500 mg/ Dextrose 100 mls @ 200 mls/hr IVPB Q12H LANCE Last Admin: 02/10/19 09:16 Dose: 200 mls/hr Propofol (Diprivan -) 1,000,000 mcg in 100 mls @ 3.765 mls/hr IVPB TITR LANCE; Protocol Last Titration: 02/10/19 09:26 Dose: 50 mcg/kg/min, 37.65 mls/hr Midazolam HCl 100 mg/ Sodium (Chloride) 100 mls @ 1 mls/hr IVPB TITR [facility]; Protocol Last Admin: 02/10/19 02:25 Dose: Not Given Insulin Aspart (Novolog Vial Sliding Scale -) 1 vial SQ ACHS LANCE; Protocol Last Admin: 02/10/19 05:59 Dose: 4 units Metoprolol Tartrate (Lopressor -) 25 mg PO DAILY [facility] Last Admin: 02/10/19 09:16 Dose: Not Given Mupirocin (Bactroban Ointment (For Decolonization) -) 1 applic NS BID [facility] Stop: 02/13/19 09:59 Last Admin: 02/10/19 09:24 Dose: 1 applic Nystatin (Mycostatin Cream -) 1 applic TP Q6HPO [facility] Last Admin: 02/10/19 05:42 Dose: Not Given Pantoprazole Sodium (Protonix Iv) 40 mg IVPUSH DAILY [facility] Last Admin: 02/10/19 09:18 Dose: 40 mg - Objective Vital Signs: Vital Signs Temperature 100.1 F H 02/10/19 06:40 Pulse Rate 95 H 02/10/19 08:30 Respiratory Rate 26 H 02/10/19 08:19 Blood Pressure 129/88 02/10/19 08:30 O2 Sat by Pulse Oximetry (%) 99 02/10/19 08:19 Constitutional: Yes: Well Nourished, No Distress, Calm Cardiovascular: Yes: Tachycardia Respiratory: Yes: Intubated, Rhonchi (diffuse) Gastrointestinal: Yes: Soft, Abdomen, Obese, Hypoactive Bowel Sounds Genitourinary: Yes: Johnson Present Musculoskeletal: Yes: Other (sedated) Extremities: Yes: Erythema (BLLE) Edema: Yes (BLLE Non pitting edema) Peripheral Pulses WNL: Yes Integumentary: Yes: Venous Stasis Changes Neurological: Yes: Other (sedated) Labs: CBC, BMP 02/10/19 05:30 02/10/19 05:30 INR, PTT INR 1.71 (0.83-1.09) H 02/09/19 05:00 Problem List - Problems (1) Acute metabolic encephalopathy Assessment/Plan: -2/2 to sepsis -ID on board -IV abx-meropenem+ 1 dose of capsofungin -Cultures: Microbiology 02/08/19 12:20 Leg - Left Lower Gram Stain - Final 02/08/19 12:20 Leg - Left Lower Wound Culture - Preliminary Serratia Marcescens Enterococcus Faecalis Presumptive Mrsa (Pbp2a Pos) 02/08/19 09:15 Leg - Right Lower Gram Stain - Final 02/08/19 09:15 Leg - Right Lower Wound Culture - Preliminary Klebsiella Pneumoniae Morganella Morganii Pseudomonas Aeruginosa Group D Strep Or Entero Coccus Group D Strep Or Entero Coccus#2 -Febrile throughout -leukocytosis improved -Lactic acidosis resolved Code(s): G93.41 - METABOLIC ENCEPHALOPATHY (2) Bilateral leg ulcer Code(s): L97.919 - NON-PRS CHRONIC ULC UNSP PRT OF R LOW LEG W UNSP SEVERITY; L97.929 - NON-PRS CHRONIC ULC UNSP PRT OF L LOW LEG W UNSP SEVERITY (3) Sepsis Assessment/Plan: -2/2 to sepsis -ID on board -IV abx-meropenem+ 1 dose of capsofungin -Cultures: Microbiology 02/08/19 12:20 Leg - Left Lower Gram Stain - Final 02/08/19 12:20 Leg - Left Lower Wound Culture - Preliminary Serratia Marcescens Enterococcus Faecalis Presumptive Mrsa (Pbp2a Pos) 02/08/19 09:15 Leg - Right Lower Gram Stain - Final 02/08/19 09:15 Leg - Right Lower Wound Culture - Preliminary Klebsiella Pneumoniae Morganella Morganii Pseudomonas Aeruginosa Group D Strep Or Entero Coccus Group D Strep Or Entero Coccus#2 -Febrile throughout -leukocytosis improved -Lactic acidosis resolved Code(s): A41.9 - SEPSIS, UNSPECIFIED ORGANISM Qualifiers: Sepsis type: sepsis due to unspecified organism Sepsis acute organ dysfunction status: unspecified Qualified Code(s): A41.9 - Sepsis, unspecified organism (4) ARF (acute renal failure) Assessment/Plan: -much improved -nephrology on board -Dialysis as per renal -monitor trend Code(s): N17.9 - ACUTE KIDNEY FAILURE, UNSPECIFIED (5) Altered mental status Assessment/Plan: -2/2 to sepsis -remains sedated and intubated -NPO Code(s): R41.82 - ALTERED MENTAL STATUS, UNSPECIFIED (6) Uncontrolled diabetes mellitus Assessment/Plan: -a1c at 9.3 -BGM ACHS -ISS Code(s): E11.65 - TYPE 2 DIABETES MELLITUS WITH HYPERGLYCEMIA (7) Hypokalemia Assessment/Plan: -monitor for now -nephrology on board -Dialysis as per renal Code(s): E87.6 - HYPOKALEMIA (8) Anemia Assessment/Plan: -JONAS -H/H drop, likely dilutional -Guaiac + -monitor trend -Venofer when final BC results or Feosol once feeding resumes -Hematology consult Code(s): D64.9 - ANEMIA, UNSPECIFIED Assessment/Plan see problem list
--- NOTE | 2019-02-10 12:50 | PN ---
Teaching Attending Note Name of Resident: Sy Elder ATTENDING PHYSICIAN STATEMENT I saw and evaluated the patient. I reviewed the resident's note and discussed the case with the resident. I agree with the resident's findings and plan as documented. SUBJECTIVE: Pt seen and examined in the ICU. Remains intubated, sedated on levophed and vasopressin gtts. Persistently febrile. Dialyzed yesterday, good urine output. OBJECTIVE: Vital Signs Period Temp Pulse Resp BP Sys/Callahan Pulse Ox Last 24 Hr 99.9 F-101.7 F 78-140 19-32 81-142/50-102 96-100 Intake & Output 02/07/19 02/08/19 02/09/19 02/10/19 23:59 23:59 23:59 23:59 Intake Total 6340 4651.8 1044 Output Total 456 2550 400 Balance 5884 2101.8 644 Weight 125.5 kg 134.445 kg 134.263 kg Gen: intubated, sedated Heart: tachycardic, regular Lung: decreased breath sounds at the bases Abd: soft, obese, nontender Ext: + edema, dressings dry CBC, BMP 02/10/19 05:30 02/10/19 05:30 Active Medications Acetaminophen (Ofirmev Injection -) 1,000 mg IVPB Q6H PRN PRN Reason: FEVER Last Admin: 02/09/19 23:17 Dose: 1,000 mg Budesonide/Formoterol Fumarate (Symbicort 80/4.5mcg -) 2 puff IH BID [facility] Last Admin: 02/10/19 09:25 Dose: Not Given Chlorhexidine Gluconate (Hibiclens For Decolonization -) 1 applic TP HS [facility] Last Admin: 02/09/19 21:28 Dose: 1 applic Gabapentin (Neurontin -) 300 mg PO DAILY [facility] Last Admin: 02/10/19 09:24 Dose: Not Given Heparin Sodium (Porcine) (Heparin -) 5,000 unit SQ TID [facility] Last Admin: 02/10/19 05:44 Dose: 5,000 unit Heparin Sodium (Porcine) (Heparin -) 1,000 unit IVPUSH PRN PRN PRN Reason: Heparin Heparin Sodium (Porcine) (Heparin -) 5,000 unit IVPUSH PRN PRN PRN Reason: Heparin Norepinephrine Bitartrate 8, (000 mcg/ Dextrose) 500 mls @ 18.75 mls/hr IV TITR [facility]; Protocol Last Titration: 02/10/19 11:30 Dose: 3 mcg/min, 11.25 mls/hr Vasopressin 50 units/ Sodium (Chloride) 100 mls @ 4 mls/hr IVPB [facility]; Protocol Last Titration: 02/10/19 10:30 Dose: 0 units/hr, 0 mls/hr Meropenem 500 mg/ Dextrose 100 mls @ 200 mls/hr IVPB Q12H [facility] Last Admin: 02/10/19 09:16 Dose: 200 mls/hr Propofol (Diprivan -) 1,000,000 mcg in 100 mls @ 3.765 mls/hr IVPB TITR [facility]; Protocol Last Titration: 02/10/19 10:45 Dose: 50 mcg/kg/min, 37.65 mls/hr Midazolam HCl 100 mg/ Sodium (Chloride) 100 mls @ 1 mls/hr IVPB TITR [facility]; Protocol Last Titration: 02/10/19 10:45 Dose: 5 mg/hr, 5 mls/hr Heparin Sodium (Porcine) 25, (000 unit/ Sodium Chloride) 500 mls @ 20 mls/hr IV TITR [facility]; Protocol Insulin Aspart (Novolog Vial Sliding Scale -) 1 vial SQ ACHS [facility]; Protocol Last Admin: 02/10/19 12:25 Dose: 4 units Metoprolol Tartrate (Lopressor -) 25 mg PO DAILY [facility] Last Admin: 02/10/19 09:16 Dose: Not Given Mupirocin (Bactroban Ointment (For Decolonization) -) 1 applic NS BID [facility] Stop: 02/13/19 09:59 Last Admin: 02/10/19 09:24 Dose: 1 applic Nystatin (Mycostatin Cream -) 1 applic TP Q6HPO [facility] Last Admin: 02/10/19 12:25 Dose: 1 applic Pantoprazole Sodium (Protonix Iv) 40 mg IVPUSH DAILY [facility] Last Admin: 02/10/19 09:18 Dose: 40 mg ASSESSMENT AND PLAN: Acute Respiratory Failure Cellulitis/Infected Leg Ulcers Septic Shock Acute Kidney Injury requiring emergent HD Hyperkalemia Lactic Acidosis Atrial Fibrillation HTN DM Hyperlipidemia Anemia - continue antibiotics - f/u cultures - wound care - IVF - monitor urine output, creatinine - titrate pressors to maintain MAP >65 - rate control - resume anticoagulation - HD per renal - sedate for vent synchrony - DVT/GI prophylaxis critical care time spent in reviewing chart, evaluating patient and formulating plan 35 min
--- NOTE | 2019-02-10 13:32 | PN ---
Progress Note, Physician History of Present Illness: continues to be intubated improving o2 requirements coming down - Current Medication List Current Medications: Active Medications Acetaminophen (Ofirmev Injection -) 1,000 mg IVPB Q6H PRN PRN Reason: FEVER Last Admin: 02/09/19 23:17 Dose: 1,000 mg Budesonide/Formoterol Fumarate (Symbicort 80/4.5mcg -) 2 puff IH BID [facility] Last Admin: 02/10/19 09:25 Dose: Not Given Chlorhexidine Gluconate (Hibiclens For Decolonization -) 1 applic TP HS [facility] Last Admin: 02/09/19 21:28 Dose: 1 applic Gabapentin (Neurontin -) 300 mg PO DAILY [facility] Last Admin: 02/10/19 09:24 Dose: Not Given Heparin Sodium (Porcine) (Heparin -) 5,000 unit SQ TID [facility] Last Admin: 02/10/19 05:44 Dose: 5,000 unit Heparin Sodium (Porcine) (Heparin -) 1,000 unit IVPUSH PRN PRN PRN Reason: Heparin Heparin Sodium (Porcine) (Heparin -) 5,000 unit IVPUSH PRN PRN PRN Reason: Heparin Norepinephrine Bitartrate 8, (000 mcg/ Dextrose) 500 mls @ 18.75 mls/hr IV TITR [facility]; Protocol Last Titration: 02/10/19 13:04 Dose: 5 mcg/min, 18.75 mls/hr Vasopressin 50 units/ Sodium (Chloride) 100 mls @ 4 mls/hr IVPB [facility]; Protocol Last Titration: 02/10/19 10:30 Dose: 0 units/hr, 0 mls/hr Meropenem 500 mg/ Dextrose 100 mls @ 200 mls/hr IVPB Q12H [facility] Last Admin: 02/10/19 09:16 Dose: 200 mls/hr Propofol (Diprivan -) 1,000,000 mcg in 100 mls @ 3.765 mls/hr IVPB TITR [facility]; Protocol Last Titration: 02/10/19 10:45 Dose: 50 mcg/kg/min, 37.65 mls/hr Midazolam HCl 100 mg/ Sodium (Chloride) 100 mls @ 1 mls/hr IVPB TITR [facility]; Protocol Last Titration: 02/10/19 10:45 Dose: 5 mg/hr, 5 mls/hr Heparin Sodium (Porcine) 25, (000 unit/ Sodium Chloride) 500 mls @ 20 mls/hr IV TITR [facility]; Protocol Vancomycin HCl 1,500 mg/ (Dextrose) 500 mls @ 250 mls/hr IVPB ONCE ONE; Protocol Stop: 02/10/19 15:29 Insulin Aspart (Novolog Vial Sliding Scale -) 1 vial SQ ACHS [facility]; Protocol Last Admin: 02/10/19 12:25 Dose: 4 units Metoprolol Tartrate (Lopressor -) 25 mg PO DAILY [facility] Last Admin: 02/10/19 09:16 Dose: Not Given Mupirocin (Bactroban Ointment (For Decolonization) -) 1 applic NS BID [facility] Stop: 02/13/19 09:59 Last Admin: 02/10/19 09:24 Dose: 1 applic Nystatin (Mycostatin Cream -) 1 applic TP Q6HPO [facility] Last Admin: 02/10/19 12:25 Dose: 1 applic Pantoprazole Sodium (Protonix Iv) 40 mg IVPUSH DAILY [facility] Last Admin: 02/10/19 09:18 Dose: 40 mg - Objective Vital Signs: Vital Signs Temperature 100.2 F H 02/10/19 12:00 Pulse Rate 112 H 02/10/19 12:00 Respiratory Rate 27 H 02/10/19 12:20 Blood Pressure 89/47 L 02/10/19 13:04 O2 Sat by Pulse Oximetry (%) 96 02/10/19 10:00 Constitutional: Yes: Other Cardiovascular: Yes: Regular Rate and Rhythm Respiratory: Yes: Intubated, Mechanically Ventilated Gastrointestinal: Yes: Normal Bowel Sounds, Soft Musculoskeletal: Yes: WNL Extremities: Yes: Other Neurological: Yes: Other Labs: CBC, BMP 02/10/19 05:30 02/10/19 05:30 INR, PTT INR 1.71 (0.83-1.09) H 02/09/19 05:00 Assessment/Plan Problem List - Problems (1) Bilateral leg ulcer Code(s): L97.919 - NON-PRS CHRONIC ULC UNSP PRT OF R LOW LEG W UNSP SEVERITY; L97.929 - NON-PRS CHRONIC ULC UNSP PRT OF L LOW LEG W UNSP SEVERITY (2) Sepsis Code(s): A41.9 - SEPSIS, UNSPECIFIED ORGANISM Qualifiers: Sepsis type: sepsis due to unspecified organism Sepsis acute organ dysfunction status: unspecified Qualified Code(s): A41.9 - Sepsis, unspecified organism (3) ARF (acute renal failure) Code(s): N17.9 - ACUTE KIDNEY FAILURE, UNSPECIFIED (4) Afib Code(s): I48.91 - UNSPECIFIED ATRIAL FIBRILLATION Qualifiers: Atrial fibrillation type: paroxysmal Qualified Code(s): I48.0 - Paroxysmal atrial fibrillation (5) Altered mental status Code(s): R41.82 - ALTERED MENTAL STATUS, UNSPECIFIED (6) Cellulitis Code(s): L03.90 - CELLULITIS, UNSPECIFIED Qualifiers: Site of cellulitis: unspecified site Qualified Code(s): L03.90 - Cellulitis , unspecified (7) DM2 (diabetes mellitus, type 2) Code(s): E11.9 - TYPE 2 DIABETES MELLITUS WITHOUT COMPLICATIONS Qualifiers: Diabetes mellitus watermelon inspector insulin use: with watermelon inspector use Diabetes mellitus complication detail: with other circulatory complications (8) Encephalopathy due to metabolic factor or toxin Code(s): TTV0657 - (9) HTN (hypertension) Code(s): I10 - ESSENTIAL (PRIMARY) HYPERTENSION (10) Hyperkalemia Code(s): E87.5 - HYPERKALEMIA (11) Lactic acidosis Code(s): E87.2 - ACIDOSIS (12) Leukocytosis Code(s): D72.829 - ELEVATED WHITE BLOOD CELL COUNT, UNSPECIFIED (13) Metabolic acidosis Code(s): E87.2 - ACIDOSIS (14) Morbid obesity Code(s): E66.01 - MORBID (SEVERE) OBESITY DUE TO EXCESS CALORIES (15) Severe sepsis Code(s): A41.9 - SEPSIS, UNSPECIFIED ORGANISM; R65.20 - SEVERE SEPSIS WITHOUT SEPTIC SHOCK (16) Venous stasis Code(s): I87.8 - OTHER SPECIFIED DISORDERS OF VEINS Assessment/Plan 53 y.o. female with PMH of chronic b/l LE ulcers, cellulitis, T2 DM, HTN, HLD, CKD, Anemia, GERD, obesity, AFIB, Asthma, and bipolar disorder brought to the ER by her brother for lethargy/AMS for the last several days noted to be in ARF , with leukocytosis, and b/l LE ulcers with malodorous drainage/erythema/ warmth. Currently receiving HD and hypotensive on Vasopressors Shock possibly from Sepsis-- on vasopressors AMS/Toxic metabolic encephalopathy/Uremia Infected b/l LE ulcers/cellulitis ARF on CKD - emergent HD started Hyperkalemia Acidosis Uremia Leukocytosis Lactic acidosis AFIB DM Morbid Obesity Asthma Bipolar d.o. HTN HLD Meropenem resp failure monitor bp dialysis very close watch all wound cx noted will give one dose of vanco cc time: 40 min
[2019-02-10] MEDS: HEPARIN - 25,000 UNIT in SODIUM CHLORIDE 495 ML IV SCH (13:38)
[2019-02-10] MEDS: VASOPRESSIN 50 UNITS in SODIUM CHLORIDE 97.5 ML IVPB SCH ×2 (13:38)
[2019-02-10] MEDS: NOREPINEPHRINE BITARTRATE 8,000 MCG in DEXTROSE 5%-WATER - 492 ML IV SCH ×2 (13:40→20:32)
--- NOTE | 2019-02-10 13:51 | PN ---
Physical Exam: SUBJECTIVE: Patient seen and examined at bedside. No acute events overnight. Patient intubated/sedated unable to ROS. OBJECTIVE: GEN: Intubated, sedated, on pressors HEENT: NC/AT, intubated. CV: S1/S2, RRR, no m/r/g LUNG: CTAB, no wheezes, crackles, rales, rhonchi. mechanically ventilated GI: soft, ndnt, +BS, no guarding, no rebound. EXTREMITIES: b/l leg wounds that are dressed, dressing CDI SKIN: warm, dry, normal turgor PSYCH: intubated, sedated Vital Signs Period Temp Pulse Resp BP Sys/Callahan Pulse Ox Last 24 Hr 99.9 F-101.7 F 82-140 19-32 89-142/47-102 96-100 Laboratory Results - last 24 hr 02/08/19 02/09/19 02/09/19 12:00 12:15 16:38 WBC RBC Hgb Hct MCV MCH MCHC RDW Plt Count MPV Sodium Potassium Chloride Carbon Dioxide Anion Gap BUN Creatinine Est GFR (CKD-EPI)AfAm Est GFR (CKD-EPI)NonAf POC Glucometer 188 Random Glucose Hemoglobin A1c % Calcium Phosphorus Magnesium Iron TIBC Iron Saturation Unsaturated IBC Total Bilirubin AST ALT Alkaline Phosphatase Total Protein Albumin Triglycerides Cholesterol Total LDL Cholesterol HDL Cholesterol Stool Occult Blood Hep Bs Antigen Negative Hep C Ab Diagnostic <0.1 02/09/19 02/09/19 02/10/19 17:00 22:02 05:30 WBC RBC Hgb Hct MCV MCH MCHC RDW Plt Count MPV Sodium Potassium Chloride Carbon Dioxide Anion Gap BUN Creatinine Est GFR (CKD-EPI)AfAm Est GFR (CKD-EPI)NonAf POC Glucometer 202 Random Glucose Hemoglobin A1c % Calcium Phosphorus Magnesium Iron 16 L TIBC 168 L Iron Saturation 9 L Unsaturated IBC 152 L Total Bilirubin AST ALT Alkaline Phosphatase Total Protein Albumin Triglycerides Cholesterol Total LDL Cholesterol HDL Cholesterol Stool Occult Blood Positive Hep Bs Antigen Hep C Ab Diagnostic 02/10/19 02/10/19 02/10/19 05:30 05:30 05:30 WBC 9.7 RBC 2.95 L Hgb 8.6 L Hct 25.0 L MCV 84.7 MCH 29.1 MCHC 34.4 RDW 15.8 H Plt Count 185 MPV 9.4 Sodium 140 Potassium 3.4 L Chloride 101 Carbon Dioxide 28 Anion Gap 11 BUN 45.9 H Creatinine 1.9 H Est GFR (CKD-EPI)AfAm 33.80 Est GFR (CKD-EPI)NonAf 29.17 POC Glucometer Random Glucose 207 H Hemoglobin A1c % 9.3 H Calcium 8.9 Phosphorus 4.6 Magnesium 1.9 Iron TIBC Iron Saturation Unsaturated IBC Total Bilirubin 0.5 AST 16 ALT 25 Alkaline Phosphatase 99 Total Protein 5.3 L Albumin 2.3 L Triglycerides 388 H Cholesterol 86 Total LDL Cholesterol 27 HDL Cholesterol 14 L Stool Occult Blood Hep Bs Antigen Hep C Ab Diagnostic 02/10/19 02/10/19 05:53 12:24 WBC RBC Hgb Hct MCV MCH MCHC RDW Plt Count MPV Sodium Potassium Chloride Carbon Dioxide Anion Gap BUN Creatinine Est GFR (CKD-EPI)AfAm Est GFR (CKD-EPI)NonAf POC Glucometer 198 155 Random Glucose Hemoglobin A1c % Calcium Phosphorus Magnesium Iron TIBC Iron Saturation Unsaturated IBC Total Bilirubin AST ALT Alkaline Phosphatase Total Protein Albumin Triglycerides Cholesterol Total LDL Cholesterol HDL Cholesterol Stool Occult Blood Hep Bs Antigen Hep C Ab Diagnostic Active Medications Generic Name Dose Route Start Last Admin Trade Name Freq PRN Reason Stop Dose Admin Acetaminophen 1,000 mg 02/09/19 21:35 02/09/19 23:17 Ofirmev Injection - IVPB 1,000 mg Q6H PRN Administration FEVER Budesonide/Formoterol Fumarate 2 puff 02/08/19 10:00 02/10/19 09:25 Symbicort 80/4.5mcg - IH Not Given BID [facility] Chlorhexidine Gluconate 1 applic 02/08/19 22:00 02/09/19 21:28 Hibiclens For Decolonization - TP 1 applic HS [facility] Administration Gabapentin 300 mg 02/08/19 10:00 02/10/19 09:24 Neurontin - PO Not Given DAILY [facility] Heparin Sodium (Porcine) 5,000 unit 02/08/19 22:00 02/10/19 13:40 Heparin - SQ Not Given TID [facility] Heparin Sodium (Porcine) 1,000 unit 02/10/19 12:02 Heparin - IVPUSH PRN PRN Heparin Heparin Sodium (Porcine) 5,000 unit 02/10/19 12:02 Heparin - IVPUSH PRN PRN Heparin Norepinephrine Bitartrate 8, 500 mls @ 18.75 mls/hr 02/08/19 13:00 02/10/19 13:40 000 mcg/ Dextrose IV Not Given TITR [facility] Protocol 5 MCG/MIN Vasopressin 50 units/ Sodium 100 mls @ 4 mls/hr 02/08/19 13:30 02/10/19 13:38 Chloride IVPB Not Given ASDIR [facility] Protocol 2 UNITS/HR Meropenem 500 mg/ Dextrose 100 mls @ 200 mls/hr 02/08/19 22:00 02/10/19 09:16 IVPB 200 mls/hr Q12H [facility] Administration Propofol 1,000,000 mcg in 100 mls @ 3.765 mls/hr 02/08/19 22:00 02/10/19 10: 45 Diprivan - IVPB 50 mcg/kg/min TITR [facility] 37.65 mls/hr Titration Protocol 5 MCG/KG/MIN Midazolam HCl 100 mg/ Sodium 100 mls @ 1 mls/hr 02/09/19 00:15 02/10/19 10:45 Chloride IVPB 5 mg/hr TITR [facility] 5 mls/hr Titration Protocol 1 MG/HR Heparin Sodium (Porcine) 25, 500 mls @ 20 mls/hr 02/10/19 12:30 02/10/19 13: 38 000 unit/ Sodium Chloride IV 1,000 unit/hr TITR [facility] 20 mls/hr Administration Protocol 1,000 UNIT/HR Vancomycin HCl 1,500 mg/ 500 mls @ 250 mls/hr 02/10/19 14:00 Dextrose IVPB 02/10/19 15:59 ONCE ONE Protocol Insulin Aspart 1 vial 02/08/19 11:00 02/10/19 12:25 Novolog Vial Sliding Scale - SQ 4 units ACHS [facility] Administration Protocol Metoprolol Tartrate 25 mg 02/08/19 10:00 02/10/19 09:16 Lopressor - PO Not Given DAILY [facility] Mupirocin 1 applic 02/08/19 10:00 02/10/19 09:24 Bactroban Ointment (For Decolonization) - NS 02/13/19 09:59 1 applic BID [facility] Administration Nystatin 1 applic 02/08/19 12:00 02/10/19 12:25 Mycostatin Cream - TP 1 applic Q6HPO [facility] Administration Pantoprazole Sodium 40 mg 02/09/19 16:45 02/10/19 09:18 Protonix Iv IVPUSH 40 mg DAILY [facility] Administration ASSESSMENT/PLAN: 53F PMH B/L LE chronic Venous stasis ulcerations, Chronic Afib on AC, HTN, poorly controlled T2DM, Dyslipedemia, Bipolar disorder, CKD (non-compliant with medications) [facility]IB[facility] to [facility] for altered mental status. ICU admission for emergent HD. #Neuro - currently sedated with a RASS of -5. - sedated w/ propofol and versed - attempted to wean off sedation; patient became tachycardic placed back on sedation Respiratory - continue symbicort - intubated, maintain SaO2>90% RENAL: Acute Renal failure with emergent need for dialysis - Bun/Cr 45.9/1.9 - Trialysis [place] - Dr Terry on board- pt dialyzed - DC'd Bicarb gtt - monitoring U.O./lytes and CVP to assess volume status. - repleted Mg CARDIO -> EKG w/ a-fib w/ RVR/septic shock on pressors - c/w vasopressin, levo; maintain MAP >65 - start lopressor 25 BID after patient off of levophed - Tele monitoring #ID -> Sepsis likely 2/2 LE Wound Ulcers/AMS/Toxic metabolic encephalopathy/ Uremia - Infected b/l LE ulcers/cellulitis, no abscess seen on exam - normalized WBC- 9.7 - Lactic Acid downtrended 2.4 > 1.4 - Urine and Blood Cultures negative, wound culture LLE: N.L.F. gram negative bacilli, MRSA, group D strep or enterococcus, RLE: L.F. G- bacilli, N.L.F, group d strep or enterococcus. - ID recs appreciated - s/p received 1 dose Capsofungin. - continue meropenem - 1 dose vanc. - f/u random vanc level today and next am #FEN D5 NS@150cc/hr Monitor Electroyltes NPO #DVT px: FOBT + switched to Heparin gtt in case of bleeding GI PPX: pantoprazole 40 IVP Visit type - Emergency Visit Emergency Visit: Yes ED Registration Date: 02/08/19 Care time: The patient presented to the Emergency Department on the above date and was hospitalized for further evaluation of their emergent condition. - New Patient This patient is new to me today: No - Critical Care Critical Care patient: Yes Total Critical Care Time (in minutes): 35 Critical Care Statement: The care of this patient involved high complexity decision making to prevent further life threatening deterioration of the patient 's condition and/or to evaluate & treat vital organ system(s) failure or risk of failure.
[2019-02-10] MEDS ORDERED: VANCOMYCIN HCL 1,500 MG in DEXTROSE 5%-WATER - 500 ML IVPB ONE (14:00)
[2019-02-10] MEDS ORDERED: MIDAZOLAM IN 0.9 % SOD.CHLORID 1 MG/1 ML PLAST..BAG ONE (15:06)
--- NOTE | 2019-02-10 16:44 | PN ---
Progress Note, Physician History of Present Illness: Pt seen and examined at bedside. SHe remains in the ICU. She remains intubated. - Current Medication List Current Medications: Active Medications Acetaminophen (Ofirmev Injection -) 1,000 mg IVPB Q6H PRN PRN Reason: FEVER Last Admin: 02/09/19 23:17 Dose: 1,000 mg Budesonide/Formoterol Fumarate (Symbicort 80/4.5mcg -) 2 puff IH BID [facility] Last Admin: 02/10/19 09:25 Dose: Not Given Chlorhexidine Gluconate (Hibiclens For Decolonization -) 1 applic TP HS [facility] Last Admin: 02/09/19 21:28 Dose: 1 applic Gabapentin (Neurontin -) 300 mg PO DAILY [facility] Last Admin: 02/10/19 09:24 Dose: Not Given Heparin Sodium (Porcine) (Heparin -) 1,000 unit IVPUSH PRN PRN PRN Reason: Heparin Heparin Sodium (Porcine) (Heparin -) 5,000 unit IVPUSH PRN PRN PRN Reason: Heparin Norepinephrine Bitartrate 8, (000 mcg/ Dextrose) 500 mls @ 18.75 mls/hr IV TITR [facility]; Protocol Last Admin: 02/10/19 13:40 Dose: Not Given Vasopressin 50 units/ Sodium (Chloride) 100 mls @ 4 mls/hr IVPB [facility]; Protocol Last Admin: 02/10/19 13:38 Dose: Not Given Meropenem 500 mg/ Dextrose 100 mls @ 200 mls/hr IVPB Q12H [facility] Last Admin: 02/10/19 09:16 Dose: 200 mls/hr Propofol (Diprivan -) 1,000,000 mcg in 100 mls @ 3.765 mls/hr IVPB TITR [facility]; Protocol Last Titration: 02/10/19 10:45 Dose: 50 mcg/kg/min, 37.65 mls/hr Midazolam HCl 100 mg/ Sodium (Chloride) 100 mls @ 1 mls/hr IVPB TITR [facility]; Protocol Last Titration: 02/10/19 10:45 Dose: 5 mg/hr, 5 mls/hr Heparin Sodium (Porcine) 25, (000 unit/ Sodium Chloride) 500 mls @ 20 mls/hr IV TITR [facility]; Protocol Last Admin: 02/10/19 13:38 Dose: 1,000 unit/hr, 20 mls/hr Insulin Aspart (Novolog Vial Sliding Scale -) 1 vial SQ ACHS [facility]; Protocol Last Admin: 02/10/19 16:38 Dose: Not Given Metoprolol Tartrate (Lopressor -) 25 mg PO DAILY [facility] Last Admin: 02/10/19 09:16 Dose: Not Given Mupirocin (Bactroban Ointment (For Decolonization) -) 1 applic NS BID [facility] Stop: 02/13/19 09:59 Last Admin: 02/10/19 09:24 Dose: 1 applic Nystatin (Mycostatin Cream -) 1 applic TP Q6HPO [facility] Last Admin: 02/10/19 12:25 Dose: 1 applic Pantoprazole Sodium (Protonix Iv) 40 mg IVPUSH DAILY [facility] Last Admin: 02/10/19 09:18 Dose: 40 mg - Objective Vital Signs: Vital Signs Temperature 100.0 F H 02/10/19 15:00 Pulse Rate 117 H 02/10/19 15:00 Respiratory Rate 29 H 02/10/19 15:57 Blood Pressure 137/57 L 02/10/19 15:00 O2 Sat by Pulse Oximetry (%) 97 02/10/19 10:20 Constitutional: Yes: Calm Eyes: Yes: Conjunctiva Clear HENT: Yes: Atraumatic Neck: Yes: Supple Cardiovascular: Yes: S1, S2 Respiratory: Yes: Intubated, Mechanically Ventilated Gastrointestinal: Yes: Soft, Abdomen, Obese Genitourinary: Yes: Johnson Present Edema: Yes Wound/Incision: Yes: Open to air Neurological: Yes: Lethargy Labs: CBC, BMP 02/10/19 05:30 02/10/19 05:30 INR, PTT INR 1.71 (0.83-1.09) H 02/09/19 05:00 - ....Imaging Chest X-ray: Report Reviewed Problem List - Problems (1) NOVA (acute kidney injury) Code(s): N17.9 - ACUTE KIDNEY FAILURE, UNSPECIFIED (2) Acute metabolic encephalopathy Code(s): G93.41 - METABOLIC ENCEPHALOPATHY (3) Sepsis Code(s): A41.9 - SEPSIS, UNSPECIFIED ORGANISM Qualifiers: Sepsis type: sepsis due to unspecified organism Sepsis acute organ dysfunction status: unspecified Qualified Code(s): A41.9 - Sepsis, unspecified organism (4) ARF (acute renal failure) Code(s): N17.9 - ACUTE KIDNEY FAILURE, UNSPECIFIED Assessment/Plan Current Medications Generic Name Dose Route Start Last Admin Trade Name Freq PRN Reason Stop Dose Admin Acetaminophen 1,000 mg 02/09/19 21:35 02/09/19 23:17 Ofirmev Injection - IVPB 1,000 mg Q6H PRN Administration FEVER Budesonide/Formoterol Fumarate 2 puff 02/08/19 10:00 02/10/19 09:25 Symbicort 80/4.5mcg - IH Not Given BID [facility] Chlorhexidine Gluconate 1 applic 02/08/19 22:00 02/09/19 21:28 Hibiclens For Decolonization - TP 1 applic HS [facility] Administration Gabapentin 300 mg 02/08/19 10:00 02/10/19 09:24 Neurontin - PO Not Given DAILY [facility] Heparin Sodium (Porcine) 1,000 unit 02/10/19 12:02 Heparin - IVPUSH PRN PRN Heparin Heparin Sodium (Porcine) 5,000 unit 02/10/19 12:02 Heparin - IVPUSH PRN PRN Heparin Norepinephrine Bitartrate 8, 500 mls @ 18.75 mls/hr 02/08/19 13:00 02/10/19 13:40 000 mcg/ Dextrose IV Not Given TITR [facility] Protocol 5 MCG/MIN Vasopressin 50 units/ Sodium 100 mls @ 4 mls/hr 02/08/19 13:30 02/10/19 13:38 Chloride IVPB Not Given ASDIR [facility] Protocol 2 UNITS/HR Meropenem 500 mg/ Dextrose 100 mls @ 200 mls/hr 02/08/19 22:00 02/10/19 09:16 IVPB 200 mls/hr Q12H [facility] Administration Propofol 1,000,000 mcg in 100 mls @ 3.765 mls/hr 02/08/19 22:00 02/10/19 10: 45 Diprivan - IVPB 50 mcg/kg/min TITR [facility] 37.65 mls/hr Titration Protocol 5 MCG/KG/MIN Midazolam HCl 100 mg/ Sodium 100 mls @ 1 mls/hr 02/09/19 00:15 02/10/19 10:45 Chloride IVPB 5 mg/hr TITR [facility] 5 mls/hr Titration Protocol 1 MG/HR Heparin Sodium (Porcine) 25, 500 mls @ 20 mls/hr 02/10/19 12:30 02/10/19 13: 38 000 unit/ Sodium Chloride IV 1,000 unit/hr TITR [facility] 20 mls/hr Administration Protocol 1,000 UNIT/HR Insulin Aspart 1 vial 02/08/19 11:00 02/10/19 16:38 Novolog Vial Sliding Scale - SQ Not Given ACHS [facility] Protocol Metoprolol Tartrate 25 mg 02/08/19 10:00 02/10/19 09:16 Lopressor - PO Not Given DAILY [facility] Mupirocin 1 applic 02/08/19 10:00 02/10/19 09:24 Bactroban Ointment (For Decolonization) - NS 02/13/19 09:59 1 applic BID [facility] Administration Nystatin 1 applic 02/08/19 12:00 02/10/19 12:25 Mycostatin Cream - TP 1 applic Q6HPO [facility] Administration Pantoprazole Sodium 40 mg 02/09/19 16:45 02/10/19 09:18 Protonix Iv IVPUSH 40 mg DAILY [facility] Administration Impression 1. NOVA 2. hyperkalemia 3. obesity 4. DM 5. a-fib 6. HTN 7. chronic lower extremity ulcers 8. gastritis 9. sepsis 10. hyperglycemia 11. metabolic acidosis 12. acute resp failure Plan - repeat labs in am - will evaluate for HD tomorrow - urine output is improved - can give lasix if needed - maintain map of 65 - follow cultures - cont wound care - vent support
[2019-02-10] MEDS ORDERED: NOREPINEPHRINE BITARTRATE 4 MG/4 ML ML IV ONE (20:25)
[2019-02-10] MEDS: HEPARIN NA (PORCINE) 5,000 UNITS/ML 1ML VIAL IVPUSH PRN (22:01)
[2019-02-10] MEDS: CHLORHEXIDINE GLUCONATE 4% CLEANSER FOR DECOLONIZATION TP SCH (22:02)
[2019-02-11] MEDS: MIDAZOLAM 100 MG in SODIUM CHLORIDE 100 ML IVPB SCH
[2019-02-11] MEDS: PROPOFOL 1,000,000 MCG/100 ML VIAL IVPB SCH ×3 (01:00→23:25)
[2019-02-11] MEDS: NYSTATIN 100,000 UNIT/GM TOPICAL CREAM 15 GM TUBE TP SCH ×4 (05:48→21:08)
[2019-02-11 06:07] LABS: BASO % 0.5 % (0-2.0); HEMOGLOBIN 9.2 GM/dL (10.7-15.3); LYMPH % 4.1 % (8-40); MEAN PLT VOLUME 9.1 fl (7.5-11.1)
[2019-02-11 06:29] LABS: EOS % 7.4 % (0-4.5); HEMATOCRIT 27.5 % (32.4-45.2); MCH 28.4 pg (25.7-33.7); MCHC 33.3 g/dl (32.0-36.0); MEAN CELL VOLUME 85.2 fl (80-96); PLATELET COUNT 226 K/MM3 (134-434); RBC 3.23 M/mm3 (3.60-5.2); RDW 15.6 % (11.6-15.6); WHITE BLOOD COUNT 11.1 K/mm3 (4.0-10.0)
[2019-02-11] MEDS: INSULIN SLIDING SCALE (NOVOLOG) 1 VIAL SQ SCH ×4 (06:32→21:39)
[2019-02-11 06:46] LABS: ALBUMIN 2.2 g/dl (3.4-5.0); BILIRUBIN,TOTAL 0.5 mg/dL (0.2-1); BLOOD UREA NITROGEN 38.2 mg/dL (7-18); CALCIUM 9.2 mg/dL (8.5-10.1); CREATININE 1.4 mg/dL (0.55-1.3); TOT PROT 5.5 g/dl (6.4-8.2)
[2019-02-11] MEDS: KCL 10 MEQ IVPB 10 MEQ/100 ML INFUS.BAG IVPB SCH ×2 (07:55→10:26)
[2019-02-11] MEDS: MUPIROCIN 2% TOPICAL OINTMENT FOR DECOLONIZATION NS SCH ×2 (10:26→21:08)
[2019-02-11] MEDS: MEROPENEM 500 MG in DEXTROSE 5%-WATER 100 ML IVPB SCH ×2 (10:26→21:34)
[2019-02-11] MEDS: PANTOPRAZOLE SODIUM 40 MG VIAL IVPUSH SCH (10:27)
[2019-02-11] MEDS: BUDESONIDE/FORMETEROL FUMARATE 80/4.5 mcg INHALER IH SCH ×2 (10:27→21:35)
--- NOTE | 2019-02-11 10:42 | CONSULT ---
Consultation: Hematology/Oncology Consultation REQUESTING PROVIDER: CONSULT REQUEST: We have been asked to medically evaluate this patient for anemia HISTORY OF PRESENT ILLNESS: 53 year old female with a history of atrial fibrillation on eliquis, hypertension, diabetes mellitus, hyperlipidemia, chronic kidney disease, chronic bilateral leg ulcers initially came to the hospital for altered mental status. She was noted to have malodorous dressings on her legs with reported "flies" around them. She was found to be in acute renal failure with a BUN/Cre of 179/11 and septic shock 2/2 infected lower extremity wound ulcers. She is currently in the ICU intubated, sedated, and on vasopressors. She received emergent hemodialysis in the ICU. Hematology was consulted for the evaluation of anemia. Patient is unable to answer questions due to mental status and intubation. Patient was admitted multiple times in the past for sepsis 2/2 bilateral wound ulcers. Has been anemic in the past. REVIEW OF SYSTEMS: Unable to obtain. PHYSICAL EXAMINATION Vital Signs - 24 hr 02/10/19 02/10/19 02/10/19 11:00 11:30 12:00 Temperature 100.0 F H 100.2 F H Pulse Rate 121 H 120 H 112 H Respiratory 21 H 28 H Rate Blood Pressure 115/66 118/66 107/61 O2 Sat by Pulse Oximetry (%) 02/10/19 02/10/19 02/10/19 12:20 13:04 13:39 Temperature Pulse Rate Respiratory 27 H Rate Blood Pressure 89/47 L 90/56 L O2 Sat by Pulse Oximetry (%) 02/10/19 02/10/19 02/10/19 15:00 15:57 16:00 Temperature 100.0 F H 99.7 F H Pulse Rate 117 H 99 H Respiratory 26 H 29 H 21 H Rate Blood Pressure 137/57 L 124/67 O2 Sat by Pulse Oximetry (%) 02/10/19 02/10/19 02/10/19 17:00 18:00 19:00 Temperature 99.6 F 99.5 F Pulse Rate 98 H 99 H 98 H Respiratory 21 H 22 H 21 H Rate Blood Pressure 120/69 106/62 O2 Sat by Pulse Oximetry (%) 02/10/19 02/10/19 02/10/19 20:00 20:08 20:54 Temperature 99.5 F Pulse Rate 102 H Respiratory 21 H 21 H Rate Blood Pressure 90/53 L O2 Sat by Pulse 99 Oximetry (%) 02/10/19 02/10/19 02/10/19 21:00 22:00 23:00 Temperature 99.5 F 99.5 F 99.5 F Pulse Rate 98 H 98 H 101 H Respiratory 18 21 H 26 H Rate Blood Pressure 108/62 104/57 L 124/73 O2 Sat by Pulse Oximetry (%) 02/10/19 02/11/19 02/11/19 23:51 00:00 00:06 Temperature Pulse Rate 95 H 95 H Respiratory 24 H 21 H 22 H Rate Blood Pressure 118/74 O2 Sat by Pulse 100 99 Oximetry (%) 02/11/19 02/11/19 02/11/19 01:00 02:00 03:00 Temperature 99.6 F 99.6 F 99.5 F Pulse Rate 94 H 101 H 99 H Respiratory 22 H 22 H 22 H Rate Blood Pressure 125/62 123/63 119/80 O2 Sat by Pulse Oximetry (%) 02/11/19 02/11/19 02/11/19 04:00 04:22 05:00 Temperature 99.6 F 99.6 F Pulse Rate 99 H 101 H Respiratory 18 18 18 Rate Blood Pressure 109/60 108/57 L O2 Sat by Pulse Oximetry (%) 02/11/19 02/11/19 02/11/19 06:00 06:35 08:00 Temperature 99.7 F H 99.7 F H Pulse Rate 96 H 112 H 102 H Respiratory 25 H 22 H Rate Blood Pressure 112/71 128/73 122/74 O2 Sat by Pulse Oximetry (%) 02/11/19 02/11/19 08:22 10:00 Temperature Pulse Rate 92 H 105 H Respiratory 14 Rate Blood Pressure 103/67 O2 Sat by Pulse 100 Oximetry (%) GENERAL: A&Ox0, intubated and sedated ENT: ET tube in place NECK: No lymphadenopathy LUNGS: Mechanical breath sounds, no wheezes HEART: tachycardic and irregular, no murmurs ABDOMEN: Obese, soft, bowel sounds diminished, surgical scars noted on abdomen EXTREMITIES: large extremities with mild edema, b/l lower extremities from the knee down have superficial, circumferential ulcerations that are non-oozing NEUROLOGICAL: unable to assess due to mental status Laboratory Results - last 24 hr 02/10/19 02/10/1902/10/19 12:24 12:30 16:29 WBC RBC Hgb Hct MCV MCH MCHC RDW Plt Count MPV Absolute Neuts (auto) Neutrophils % Lymphocytes % Monocytes % Eosinophils % Basophils % Nucleated RBC % PTT (Actin FS) Fibrinogen Sodium Potassium Chloride Carbon Dioxide Anion Gap BUN Creatinine Est GFR (CKD-EPI)AfAm Est GFR (CKD-EPI)NonAf POC Glucometer 155 127 Random Glucose Calcium Iron TIBC Iron Saturation Unsaturated IBC Ferritin Total Bilirubin AST ALT Alkaline Phosphatase LD Total Total Protein Albumin Vitamin B12 Serum Folate Random Vancomycin 5.7 L 02/10/19 02/10/19 02/11/19 20:20 22:15 04:25 WBC RBC Hgb Hct MCV MCH MCHC RDW Plt Count MPV Absolute Neuts (auto) Neutrophils % Lymphocytes % Monocytes % Eosinophils % Basophils % Nucleated RBC % PTT (Actin FS) 27.7 25.6 Fibrinogen Sodium Potassium Chloride Carbon Dioxide Anion Gap BUN Creatinine Est GFR (CKD-EPI)AfAm Est GFR (CKD-EPI)NonAf POC Glucometer 152 Random Glucose Calcium Iron TIBC Iron Saturation Unsaturated IBC Ferritin Total Bilirubin AST ALT Alkaline Phosphatase LD Total Total Protein Albumin Vitamin B12 Serum Folate Random Vancomycin 02/11/19 02/11/19 02/11/19 05:00 05:00 05:00 WBC 11.1 H RBC 3.23 L Hgb 9.2 L Hct 27.5 L MCV 85.2 MCH 28.4 MCHC 33.3 RDW 15.6 Plt Count 226 D MPV 9.1 Absolute Neuts (auto) 9.3 H Neutrophils % 84.0 H Lymphocytes % 4.1 L D Monocytes % 4.0 D Eosinophils % 7.4 H D Basophils % 0.5 D Nucleated RBC % 0 PTT (Actin FS) Fibrinogen Sodium 144 Potassium 3.0 L Chloride 104 Carbon Dioxide 31 Anion Gap 8 BUN 38.2 H Creatinine 1.4 H Est GFR (CKD-EPI)AfAm 48.90 Est GFR (CKD-EPI)NonAf 42.19 POC Glucometer Random Glucose 149 H Calcium 9.2 Iron 31 L TIBC 131 L Iron Saturation 23 Unsaturated IBC 100 L Ferritin 231.1 Total Bilirubin 0.5 AST 11 L ALT 19 Alkaline Phosphatase 100 LD Total 150 Total Protein 5.5 L Albumin 2.2 L Vitamin B12 1070 H Serum Folate 4 Random Vancomycin 19.5 02/11/19 02/11/19 06:27 08:58 WBC RBC Hgb Hct MCV MCH MCHC RDW Plt Count MPV Absolute Neuts (auto) Neutrophils % Lymphocytes % Monocytes % Eosinophils % Basophils % Nucleated RBC % PTT (Actin FS) Fibrinogen 474.0 Sodium Potassium Chloride Carbon Dioxide Anion Gap BUN Creatinine Est GFR (CKD-EPI)AfAm Est GFR (CKD-EPI)NonAf POC Glucometer 156 Random Glucose Calcium Iron TIBC Iron Saturation Unsaturated IBC Ferritin Total Bilirubin AST ALT Alkaline Phosphatase LD Total Total Protein Albumin Vitamin B12 Serum Folate Random Vancomycin Active Medications Generic Name Dose Route Start Last Admin Trade Name Freq PRN Reason Stop Dose Admin Acetaminophen 1,000 mg 02/09/19 21:35 02/09/19 23:17 Ofirmev Injection - IVPB 1,000 mg Q6H PRN Administration FEVER Budesonide/Formoterol Fumarate 2 puff 02/08/19 10:00 02/11/19 10:27 Symbicort 80/4.5mcg - IH Not Given BID LANCE Chlorhexidine Gluconate 1 applic 02/08/19 22:00 02/10/19 22:02 Hibiclens For Decolonization - TP 1 applic HS LANCE Administration Gabapentin 300 mg 02/08/19 10:00 02/10/19 09:24 Neurontin - PO Not Given DAILY [facility] Heparin Sodium (Porcine) 1,000 unit 02/10/19 12:02 Heparin - IVPUSH PRN PRN Heparin Heparin Sodium (Porcine) 5,000 unit 02/10/19 12:02 02/10/19 22:01 Heparin - IVPUSH 5,000 unit PRN PRN Administration Heparin Norepinephrine Bitartrate 8, 500 mls @ 18.75 mls/hr 02/08/19 13:00 02/11/19 10:00 000 mcg/ Dextrose IV 0 mcg/min TITR [facility] 0 mls/hr Titration Protocol 5 MCG/MIN Vasopressin 50 units/ Sodium 100 mls @ 4 mls/hr 02/08/19 13:30 02/10/19 13:38 Chloride IVPB Not Given ASDIR LANCE Protocol 2 UNITS/HR Meropenem 500 mg/ Dextrose 100 mls @ 200 mls/hr 02/08/19 22:00 02/11/19 10:26 IVPB 200 mls/hr Q12H L[facility] Administration Propofol 1,000,000 mcg in 100 mls @ 3.765 mls/hr 02/08/19 22:00 02/11/19 03: 56 Diprivan - IVPB 50 mcg/kg/min TITR [facility] 37.65 mls/hr Administration Protocol 5 MCG/KG/MIN Midazolam HCl 100 mg/ Sodium 100 mls @ 1 mls/hr 02/09/19 00:15 02/11/19 08:41 Chloride IVPB 5 mg/hr TITR [facility] 5 mls/hr Titration Protocol 1 MG/HR Heparin Sodium (Porcine) 25, 500 mls @ 20 mls/hr 02/10/19 12:30 02/11/19 05: 11 000 unit/ Sodium Chloride IV 1,300 unit/hr TITR [facility] 26 mls/hr Titration Protocol 1,000 UNIT/HR Insulin Aspart 1 vial 02/08/19 11:00 02/11/19 06:32 Novolog Vial Sliding Scale - SQ 4 units ACHS [facility] Administration Protocol Metoprolol Tartrate 25 mg 02/08/19 10:00 02/10/19 09:16 Lopressor - PO Not Given DAILY [facility] Mupirocin 1 applic 02/08/19 10:00 02/11/19 10:26 Bactroban Ointment (For Decolonization) - NS 02/13/19 09:59 1 applic BID [facility] Administration Nystatin 1 applic 02/08/19 12:00 02/11/19 05:48 Mycostatin Cream - TP Not Given Q6HPO [facility] Pantoprazole Sodium 40 mg 02/09/19 16:45 02/11/19 10:27 Protonix Iv IVPUSH 40 mg DAILY [facility] Administration CBC, BMP 02/11/19 05:00 02/11/19 05:00 ASSESSMENT/PLAN: 53 year old female with a history of atrial fibrillation on eliquis, hypertension, diabetes mellitus, hyperlipidemia, chronic kidney disease, chronic bilateral leg ulcers initially came to the hospital for altered mental status admitted for acute renal failure and septic shock 2/2 b/l leg wounds #Anemia #Renal Failure #Septic Shock #Leg Wounds #Anemia: normochromic, normocytic anemia that has been this low before to a hgb of 9.2, this is likely a combination of anemia of chronic inflammation vs renal disease-associated anemia, no overt bleeding to suggest acute/chronic blood loss anemia; unknown if patient has had colonoscopy in the past at this time -ordered reticulocyte count -iron studies -B12/folate levels -EPO level -if above are normal, would check peripheral smear Danie Myers D.O., PGY3 Will Discuss with Dr. Coronel ATTENDING PHYSICIAN STATEMENT I saw and evaluated the patient. I reviewed the resident's note and discussed the case with the resident. I agree with the resident's findings and plan as documented. SUBJECTIVE: OBJECTIVE: ASSESSMENT AND PLAN:
--- NOTE | 2019-02-11 11:32 | PN ---
Progress Note, Physician Chief Complaint: B/L LE chronic Venous stasis ulcerations Chronic Afib on AC HTN Uncontrolled T2DM Bipolar disorder CKD (non-compliant with medications) History of Present Illness: Remains in ICU Intubated now On pressors, Seen by Nephrology, no more HD indicated - Current Medication List Current Medications: Active Medications Acetaminophen (Ofirmev Injection -) 1,000 mg IVPB Q6H PRN PRN Reason: FEVER Last Admin: 02/09/19 23:17 Dose: 1,000 mg Budesonide/Formoterol Fumarate (Symbicort 80/4.5mcg -) 2 puff IH BID LANCE Last Admin: 02/11/19 10:27 Dose: Not Given Chlorhexidine Gluconate (Hibiclens For Decolonization -) 1 applic TP HS LANCE Last Admin: 02/10/19 22:02 Dose: 1 applic Gabapentin (Neurontin -) 300 mg PO DAILY [facility] Last Admin: 02/10/19 09:24 Dose: Not Given Heparin Sodium (Porcine) (Heparin -) 1,000 unit IVPUSH PRN PRN PRN Reason: Heparin Heparin Sodium (Porcine) (Heparin -) 5,000 unit IVPUSH PRN PRN PRN Reason: Heparin Last Admin: 02/10/19 22:01 Dose: 5,000 unit Norepinephrine Bitartrate 8, (000 mcg/ Dextrose) 500 mls @ 18.75 mls/hr IV TITR [facility]; Protocol Last Titration: 02/11/19 10:00 Dose: 0 mcg/min, 0 mls/hr Vasopressin 50 units/ Sodium (Chloride) 100 mls @ 4 mls/hr IVPB ASDIR [facility]; Protocol Last Admin: 02/10/19 13:38 Dose: Not Given Meropenem 500 mg/ Dextrose 100 mls @ 200 mls/hr IVPB Q12H [facility] Last Admin: 02/11/19 10:26 Dose: 200 mls/hr Propofol (Diprivan -) 1,000,000 mcg in 100 mls @ 3.765 mls/hr IVPB TITR [facility]; Protocol Last Admin: 02/11/19 03:56 Dose: 50 mcg/kg/min, 37.65 mls/hr Midazolam HCl 100 mg/ Sodium (Chloride) 100 mls @ 1 mls/hr IVPB TITR [facility]; Protocol Last Titration: 02/11/19 08:41 Dose: 5 mg/hr, 5 mls/hr Heparin Sodium (Porcine) 25, (000 unit/ Sodium Chloride) 500 mls @ 20 mls/hr IV TITR [facility]; Protocol Last Titration: 02/11/19 05:11 Dose: 1,300 unit/hr, 26 mls/hr Insulin Aspart (Novolog Vial Sliding Scale -) 1 vial SQ ACHS [facility]; Protocol Last Admin: 02/11/19 06:32 Dose: 4 units Metoprolol Tartrate (Lopressor -) 25 mg PO DAILY [facility] Last Admin: 02/10/19 09:16 Dose: Not Given Mupirocin (Bactroban Ointment (For Decolonization) -) 1 applic NS BID [facility] Stop: 02/13/19 09:59 Last Admin: 02/11/19 10:26 Dose: 1 applic Nystatin (Mycostatin Cream -) 1 applic TP Q6HPO [facility] Last Admin: 02/11/19 05:48 Dose: Not Given Pantoprazole Sodium (Protonix Iv) 40 mg IVPUSH DAILY [facility] Last Admin: 02/11/19 10:27 Dose: 40 mg - Objective Vital Signs: Vital Signs Temperature 99.5 F 02/11/19 10:00 Pulse Rate 111 H 02/11/19 11:00 Respiratory Rate 20 02/11/19 11:15 Blood Pressure 93/59 L 02/11/19 11:00 O2 Sat by Pulse Oximetry (%) 100 02/11/19 11:15 Constitutional: Yes: Well Nourished, No Distress, Obese Cardiovascular: Yes: Tachycardia Respiratory: Yes: Mechanically Ventilated, Rhonchi (diffuse) Gastrointestinal: Yes: Soft, Abdomen, Obese, Hypoactive Bowel Sounds Genitourinary: Yes: Johnson Present Musculoskeletal: Yes: Other (sedated) Extremities: Yes: Erythema (BLLE cellulitis) Edema: Yes (BLLE Non pitting edema) Peripheral Pulses WNL: No Peripheral Pulses: Left Doralis Pedis: 1+, Right Dorsalis Pedis: 1+ Neurological: Yes: Other (sedated) Labs: CBC, BMP 02/11/19 05:00 02/11/19 05:00 INR, PTT INR 1.71 (0.83-1.09) H 02/09/19 05:00 Fibrinogen 474.0 mg/dL (238-498) 02/11/19 08:58 Problem List - Problems (1) Acute metabolic encephalopathy Assessment/Plan: -2/2 to sepsis -ID on board -IV abx -Cultures: Microbiology 02/08/19 09:15 Leg - Right Lower Gram Stain - Final 02/08/19 09:15 Leg - Right Lower Wound Culture - Final Klebsiella Pneumoniae Morganella Morganii Pseudomonas Aeruginosa Enterococcus Faecalis Enterococcus Avium Prevotella Oralis 02/08/19 12:20 Leg - Left Lower Gram Stain - Final 02/08/19 12:20 Leg - Left Lower Wound Culture - Final Serratia Marcescens Enterococcus Faecalis Mr S Aureus 02/08/19 01:45 Blood - Peripheral Venous Blood Culture - Preliminary NO GROWTH OBTAINED AFTER 72 HOURS, INCUBATION TO CONTINUE FOR 2 DAYS. 02/08/19 01:45 Blood - Peripheral Venous Blood Culture - Preliminary NO GROWTH OBTAINED AFTER 72 HOURS, INCUBATION TO CONTINUE FOR 2 DAYS. 02/08/19 16:00 Urine - Urine Johnson Urine Culture - Final NO GROWTH OBTAINED 02/08/19 09:15 Urine - Urine Johnson Urine Culture - Final NO GROWTH OBTAINED -Afebrile -leukocytosis -Lactic acidosis resolved Code(s): G93.41 - METABOLIC ENCEPHALOPATHY (2) NOVA (acute kidney injury) Code(s): N17.9 - ACUTE KIDNEY FAILURE, UNSPECIFIED (3) Bilateral leg ulcer Code(s): L97.919 - NON-PRS CHRONIC ULC UNSP PRT OF R LOW LEG W UNSP SEVERITY; L97.929 - NON-PRS CHRONIC ULC UNSP PRT OF L LOW LEG W UNSP SEVERITY (4) Sepsis Assessment/Plan: -2/2 to sepsis -ID on board -IV abx -Cultures as above -Afebrile -leukocytosis -Lactic acidosis resolved -Cardiology consult Code(s): A41.9 - SEPSIS, UNSPECIFIED ORGANISM Qualifiers: Sepsis type: sepsis due to unspecified organism Sepsis acute organ dysfunction status: unspecified Qualified Code(s): A41.9 - Sepsis, unspecified organism (5) ARF (acute renal failure) Assessment/Plan: -much improved -nephrology on board Code(s): N17.9 - ACUTE KIDNEY FAILURE, UNSPECIFIED (6) Altered mental status Assessment/Plan: -2/2 to sepsis -NPO Code(s): R41.82 - ALTERED MENTAL STATUS, UNSPECIFIED (7) Uncontrolled diabetes mellitus Assessment/Plan: -a1c at 9.3 -BGM ACHS -ISS -endocrine consult Code(s): E11.65 - TYPE 2 DIABETES MELLITUS WITH HYPERGLYCEMIA (8) Lactic acidosis Code(s): E87.2 - ACIDOSIS (9) Hypokalemia Assessment/Plan: -replace as per nephrology Code(s): E87.6 - HYPOKALEMIA (10) Anemia Assessment/Plan: -JONAS -H/H stable -Guaiac + -monitor trend -Venofer when final BC results or Feosol once feeding resumes -Hematology consult appreciated -B12+ folate normal Code(s): D64.9 - ANEMIA, UNSPECIFIED Assessment/Plan See problem list
[2019-02-11 11:38] LABS: RETICULOCYTES 0.78 % (0.5-1.5)
[2019-02-11] MEDS: METOPROLOL TARTRATE 25 MG TABLET (FP) PO SCH (11:57)
[2019-02-11] MEDS: GABAPENTIN 300 MG CAPSULE (FP) PO SCH (11:57)
[2019-02-11] MEDS ORDERED: METOPROLOL TARTRATE 5 MG/5 ML VIAL IVPUSH PRN (12:11)
--- NOTE | 2019-02-11 12:14 | PN ---
Progress Note, Physician History of Present Illness: continues to be intubated sedated - Current Medication List Current Medications: Active Medications Acetaminophen (Ofirmev Injection -) 1,000 mg IVPB Q6H PRN PRN Reason: FEVER Last Admin: 02/09/19 23:17 Dose: 1,000 mg Budesonide/Formoterol Fumarate (Symbicort 80/4.5mcg -) 2 puff IH BID LANCE Last Admin: 02/11/19 10:27 Dose: Not Given Chlorhexidine Gluconate (Hibiclens For Decolonization -) 1 applic TP HS LANCE Last Admin: 02/10/19 22:02 Dose: 1 applic Chlorhexidine Gluconate (Peridex -) 15 ml MM BID LANCE Gabapentin (Neurontin -) 300 mg PO DAILY [facility] Last Admin: 02/11/19 11:57 Dose: Not Given Heparin Sodium (Porcine) (Heparin -) 1,000 unit IVPUSH PRN PRN PRN Reason: Heparin Heparin Sodium (Porcine) (Heparin -) 5,000 unit IVPUSH PRN PRN PRN Reason: Heparin Last Admin: 02/10/19 22:01 Dose: 5,000 unit Norepinephrine Bitartrate 8, (000 mcg/ Dextrose) 500 mls @ 18.75 mls/hr IV TITR [facility]; Protocol Last Titration: 02/11/19 10:00 Dose: 0 mcg/min, 0 mls/hr Vasopressin 50 units/ Sodium (Chloride) 100 mls @ 4 mls/hr IVPB [facility]; Protocol Last Admin: 02/10/19 13:38 Dose: Not Given Meropenem 500 mg/ Dextrose 100 mls @ 200 mls/hr IVPB Q12H [facility] Last Admin: 02/11/19 10:26 Dose: 200 mls/hr Propofol (Diprivan -) 1,000,000 mcg in 100 mls @ 3.765 mls/hr IVPB TITR [facility]; Protocol Last Admin: 02/11/19 03:56 Dose: 50 mcg/kg/min, 37.65 mls/hr Midazolam HCl 100 mg/ Sodium (Chloride) 100 mls @ 1 mls/hr IVPB TITR [facility]; Protocol Last Titration: 02/11/19 11:00 Dose: 0 mg/hr, 0 mls/hr Heparin Sodium (Porcine) 25, (000 unit/ Sodium Chloride) 500 mls @ 20 mls/hr IV TITR [facility]; Protocol Last Titration: 02/11/19 05:11 Dose: 1,300 unit/hr, 26 mls/hr Insulin Aspart (Novolog Vial Sliding Scale -) 1 vial SQ ACHS [facility]; Protocol Last Admin: 02/11/19 11:59 Dose: Not Given Metoprolol Tartrate (Lopressor Injection -) 25 mg IVPUSH BID [facility] Metoprolol Tartrate (Lopressor Injection -) 5 mg IVPUSH PRN PRN PRN Reason: HYPERTENSION Mupirocin (Bactroban Ointment (For Decolonization) -) 1 applic NS BID [facility] Stop: 02/13/19 09:59 Last Admin: 02/11/19 10:26 Dose: 1 applic Nystatin (Mycostatin Cream -) 1 applic TP Q6HPO [facility] Last Admin: 02/11/19 11:59 Dose: 1 applic Pantoprazole Sodium (Protonix Iv) 40 mg IVPUSH DAILY [facility] Last Admin: 02/11/19 10:27 Dose: 40 mg - Objective Vital Signs: Vital Signs Temperature 99.5 F 02/11/19 10:00 Pulse Rate 111 H 02/11/19 11:00 Respiratory Rate 20 02/11/19 11:15 Blood Pressure 93/59 L 02/11/19 11:00 O2 Sat by Pulse Oximetry (%) 100 02/11/19 11:15 Constitutional: Yes: Other Cardiovascular: Yes: S1, S2 Respiratory: Yes: Intubated, Mechanically Ventilated Gastrointestinal: Yes: Normal Bowel Sounds, Soft Musculoskeletal: Yes: WNL Extremities: Yes: Other Wound/Incision: Yes: Dressing Dry and Intact Neurological: Yes: Other Psychiatric: Yes: Other Labs: CBC, BMP 02/11/19 05:00 02/11/19 05:00 INR, PTT INR 1.71 (0.83-1.09) H 02/09/19 05:00 Fibrinogen 474.0 mg/dL (238-498) 02/11/19 08:58 Assessment/Plan Problem List - Problems (1) Bilateral leg ulcer Code(s): L97.919 - NON-PRS CHRONIC ULC UNSP PRT OF R LOW LEG W UNSP SEVERITY; L97.929 - NON-PRS CHRONIC ULC UNSP PRT OF L LOW LEG W UNSP SEVERITY (2) Sepsis Code(s): A41.9 - SEPSIS, UNSPECIFIED ORGANISM Qualifiers: Sepsis type: sepsis due to unspecified organism Sepsis acute organ dysfunction status: unspecified Qualified Code(s): A41.9 - Sepsis, unspecified organism (3) ARF (acute renal failure) Code(s): N17.9 - ACUTE KIDNEY FAILURE, UNSPECIFIED (4) Afib Code(s): I48.91 - UNSPECIFIED ATRIAL FIBRILLATION Qualifiers: Atrial fibrillation type: paroxysmal Qualified Code(s): I48.0 - Paroxysmal atrial fibrillation (5) Altered mental status Code(s): R41.82 - ALTERED MENTAL STATUS, UNSPECIFIED (6) Cellulitis Code(s): L03.90 - CELLULITIS, UNSPECIFIED Qualifiers: Site of cellulitis: unspecified site Qualified Code(s): L03.90 - Cellulitis , unspecified (7) DM2 (diabetes mellitus, type 2) Code(s): E11.9 - TYPE 2 DIABETES MELLITUS WITHOUT COMPLICATIONS Qualifiers: Diabetes mellitus exterminator helper insulin use: with exterminator helper use Diabetes mellitus complication detail: with other circulatory complications (8) Encephalopathy due to metabolic factor or toxin Code(s): [id number] - (9) HTN (hypertension) Code(s): I10 - ESSENTIAL (PRIMARY) HYPERTENSION (10) Hyperkalemia Code(s): E87.5 - HYPERKALEMIA (11) Lactic acidosis Code(s): E87.2 - ACIDOSIS (12) Leukocytosis Code(s): D72.829 - ELEVATED WHITE BLOOD CELL COUNT, UNSPECIFIED (13) Metabolic acidosis Code(s): E87.2 - ACIDOSIS (14) Morbid obesity Code(s): E66.01 - MORBID (SEVERE) OBESITY DUE TO EXCESS CALORIES (15) Severe sepsis Code(s): A41.9 - SEPSIS, UNSPECIFIED ORGANISM; R65.20 - SEVERE SEPSIS WITHOUT SEPTIC SHOCK (16) Venous stasis Code(s): I87.8 - OTHER SPECIFIED DISORDERS OF VEINS Assessment/Plan 53 y.o. female with PMH of chronic b/l LE ulcers, cellulitis, T2 DM, HTN, HLD, CKD, Anemia, GERD, obesity, AFIB, Asthma, and bipolar disorder brought to the ER by her brother for lethargy/AMS for the last several days noted to be in ARF , with leukocytosis, and b/l LE ulcers with malodorous drainage/erythema/ warmth. Currently receiving HD and hypotensive on Vasopressors Shock possibly from Sepsis-- on vasopressors AMS/Toxic metabolic encephalopathy/Uremia Infected b/l LE ulcers/cellulitis ARF on CKD - emergent HD started Hyperkalemia Acidosis Uremia Leukocytosis Lactic acidosis AFIB DM Morbid Obesity Asthma Bipolar d.o. HTN HLD continue abx will check vanco level will decide on the level rest as per the team cc time: 40 min
--- NOTE | 2019-02-11 12:35 | PN ---
Physical Exam: SUBJECTIVE: Patient seen and examined at bedside this AM. Pt not able to tolerate cpap due to decreased TV, tachypnea/accesorry respiratory muscle use, and tachycardia off sedation most likely 2/2 agitation. OBJECTIVE: Vital Signs Period Temp Pulse Resp BP Sys/Callahan Pulse Ox Last 24 Hr 99.5 F-100.0 F 83-120 14-29 89-137/47-80 99-100 GENERAL: The patient is sedated and intubated. RASS -5. HEAD: Normal with no signs of trauma. NECK: supple. LUNGS: Breath sounds equal, clear to auscultation bilaterally, no wheezes, no crackles, no accessory muscle use. HEART: Regular rate and rhythm, S1, S2 without murmur, rub or gallop. ABDOMEN: Soft, unable to assess for tenderness, globose abdomen. PSYCH: sedated SKIN: b/l LE ulcers, no abscess formation at this time, good pulses b/l Laboratory Results - last 24 hr 02/10/19 02/10/19 02/10/19 12:30 16:29 20:20 WBC RBC Hgb Hct MCV MCH MCHC RDW Plt Count MPV Absolute Neuts (auto) Neutrophils % Lymphocytes % Monocytes % Eosinophils % Basophils % Nucleated RBC % Retic Count PTT (Actin FS) 27.7 Fibrinogen Sodium Potassium Chloride Carbon Dioxide Anion Gap BUN Creatinine Est GFR (CKD-EPI)AfAm Est GFR (CKD-EPI)NonAf POC Glucometer 127 Random Glucose Calcium Iron TIBC Iron Saturation Unsaturated IBC Ferritin Total Bilirubin AST ALT Alkaline Phosphatase LD Total Total Protein Albumin Vitamin B12 Serum Folate Random Vancomycin 5.7 L 02/10/19 02/11/19 02/11/19 22:15 04:25 05:00 WBC RBC Hgb Hct MCV MCH MCHC RDW Plt Count MPV Absolute Neuts (auto) Neutrophils % Lymphocytes % Monocytes % Eosinophils % Basophils % Nucleated RBC % Retic Count PTT (Actin FS) 25.6 Fibrinogen Sodium Potassium Chloride Carbon Dioxide Anion Gap BUN Creatinine Est GFR (CKD-EPI)AfAm Est GFR (CKD-EPI)NonAf POC Glucometer 152 Random Glucose Calcium Iron TIBC Iron Saturation Unsaturated IBC Ferritin Total Bilirubin AST ALT Alkaline Phosphatase LD Total Total Protein Albumin Vitamin B12 Serum Folate Random Vancomycin 19.5 02/11/19 02/11/19 02/11/19 05:00 05:00 06:27 WBC 11.1 H RBC 3.23 L Hgb 9.2 L Hct 27.5 L MCV 85.2 MCH 28.4 MCHC 33.3 RDW 15.6 Plt Count 226 D MPV 9.1 Absolute Neuts (auto) 9.3 H Neutrophils % 84.0 H Lymphocytes % 4.1 L D Monocytes % 4.0 D Eosinophils % 7.4 H D Basophils % 0.5 D Nucleated RBC % 0 Retic Count 0.78 PTT (Actin FS) Fibrinogen Sodium 144 Potassium 3.0 L Chloride 104 Carbon Dioxide 31 Anion Gap 8 BUN 38.2 H Creatinine 1.4 H Est GFR (CKD-EPI)AfAm 48.90 Est GFR (CKD-EPI)NonAf 42.19 POC Glucometer 156 Random Glucose 149 H Calcium 9.2 Iron 31 L TIBC 131 L Iron Saturation 23 Unsaturated IBC 100 L Ferritin 231.1 Total Bilirubin 0.5 AST 11 L ALT 19 Alkaline Phosphatase 100 LD Total 150 Total Protein 5.5 L Albumin 2.2 L Vitamin B12 1070 H Serum Folate 4 Random Vancomycin 02/11/19 02/11/19 08:58 11:34 WBC RBC Hgb Hct MCV MCH MCHC RDW Plt Count MPV Absolute Neuts (auto) Neutrophils % Lymphocytes % Monocytes % Eosinophils % Basophils % Nucleated RBC % Retic Count PTT (Actin FS) Fibrinogen 474.0 Sodium Potassium Chloride Carbon Dioxide Anion Gap BUN Creatinine Est GFR (CKD-EPI)AfAm Est GFR (CKD-EPI)NonAf POC Glucometer 137 Random Glucose Calcium Iron TIBC Iron Saturation Unsaturated IBC Ferritin Total Bilirubin AST ALT Alkaline Phosphatase LD Total Total Protein Albumin Vitamin B12 Serum Folate Random Vancomycin Active Medications Generic Name Dose Route Start Last Admin Trade Name Opal PRN Reason Stop Dose Admin Acetaminophen 1,000 mg 02/09/19 21:35 02/09/19 23:17 Ofirmev Injection - IVPB 1,000 mg Q6H PRN Administration FEVER Budesonide/Formoterol Fumarate 2 puff 02/08/19 10:00 02/11/19 10:27 Symbicort 80/4.5mcg - IH Not Given BID LANCE Chlorhexidine Gluconate 1 applic 02/08/19 22:00 02/10/19 22:02 Hibiclens For Decolonization - TP 1 applic HS LANCE Administration Chlorhexidine Gluconate 15 ml 02/11/19 12:15 Peridex - MM BID LANCE Gabapentin 300 mg 02/08/19 10:00 02/11/19 11:57 Neurontin - PO Not Given DAILY LANCE Heparin Sodium (Porcine) 1,000 unit 02/10/19 12:02 Heparin - IVPUSH PRN PRN Heparin Heparin Sodium (Porcine) 5,000 unit 02/10/19 12:02 02/10/19 22:01 Heparin - IVPUSH 5,000 unit PRN PRN Administration Heparin Norepinephrine Bitartrate 8, 500 mls @ 18.75 mls/hr 02/08/19 13:00 02/11/19 10:00 000 mcg/ Dextrose IV 0 mcg/min TITR LANCE 0 mls/hr Titration Protocol 5 MCG/MIN Vasopressin 50 units/ Sodium 100 mls @ 4 mls/hr 02/08/19 13:30 02/10/19 13:38 Chloride IVPB Not Given ASDIR LANCE Protocol 2 UNITS/HR Meropenem 500 mg/ Dextrose 100 mls @ 200 mls/hr 02/08/19 22:00 02/11/19 10:26 IVPB 200 mls/hr Q12H LANCE Administration Propofol 1,000,000 mcg in 100 mls @ 3.765 mls/hr 02/08/19 22:00 02/11/19 03: 56 Diprivan - IVPB 50 mcg/kg/min TITR LANCE 37.65 mls/hr Administration Protocol 5 MCG/KG/MIN Midazolam HCl 100 mg/ Sodium 100 mls @ 1 mls/hr 02/09/19 00:15 02/11/19 11:00 Chloride IVPB 0 mg/hr TITR LANCE 0 mls/hr Titration Protocol 1 MG/HR Heparin Sodium (Porcine) 25, 500 mls @ 20 mls/hr 02/10/19 12:30 02/11/19 05: 11 000 unit/ Sodium Chloride IV 1,300 unit/hr TITR LANCE 26 mls/hr Titration Protocol 1,000 UNIT/HR Insulin Aspart 1 vial 02/08/19 11:00 02/11/19 11:59 Novolog Vial Sliding Scale - SQ Not Given ACHS LANCE Protocol Metoprolol Tartrate 25 mg 02/11/19 12:15 Lopressor Injection - IVPUSH BID LANCE Metoprolol Tartrate 5 mg 02/11/19 12:11 Lopressor Injection - IVPUSH PRN PRN HYPERTENSION Mupirocin 1 applic 02/08/19 10:00 02/11/19 10:26 Bactroban Ointment (For Decolonization) - NS 02/13/19 09:59 1 applic BID LANCE Administration Nystatin 1 applic 02/08/19 12:00 02/11/19 11:59 Mycostatin Cream - TP 1 applic Q6HPO LANCE Administration Pantoprazole Sodium 40 mg 02/09/19 16:45 02/11/19 10:27 Protonix Iv IVPUSH 40 mg DAILY LANCE Administration ASSESSMENT/PLAN: 53F PMH B/L LE chronic Venous stasis ulcerations, Chronic Afib on AC, HTN, poorly controlled T2DM, Dyslipedemia, Bipolar disorder, CKD (non-compliant with medications) BIBEMS to [facility] for altered mental status. ICU admission for emergent HD. #Neuro - currently sedated with a RASS of -5. - sedated w/ propofol and versed - attempted to wean off sedation; patient became tachycardic/tachypenic not able to breath proper TV's for her size and placed back on sedation. Respiratory - continue symbicort - intubated, maintain SaO2>90% RENAL: Acute Renal failure with emergent need for dialysis - Bun/Cr 38/1.4 - d/c trialysis RIJ once off pressors. - Dr Terry on board- pt non needing dialysis today, renal function is improving - replace potassium today with 20 IV bag and 2 bags of 10mEq. - decent urine output - continuing to monitor U.O./lytes and CVP to assess volume status. Pt CVP is 8 so good volume status at this time. CARDIO -> EKG w/ a-fib w/ RVR/septic shock on pressors - d/c vasopressin, c/w levo - maintain MAP >65 - started lopressor 25 BID, continuing levo, will push lopressor 5 in between if HR >120. - Tele monitoring #ID -> Sepsis likely 2/2 LE Wound Ulcers/AMS/Toxic metabolic encephalopathy/ Uremia - Infected b/l LE ulcers/cellulitis, no abscess seen on exam - Urine and Blood Cultures negative, wound culture LLE: N.L.F. gram negative bacilli, MRSA, group D strep or enterococcus, RLE: L.F. G- bacilli, N.L.F, group d strep or enterococcus. - Dr. De Leon- give vanco if vanco level is low upon draw later today. - continue meropenem #FEN d/c fluids Monitor Electroyltes NPO #DVT px: FOBT + continue heparin gtt Hb today higher than yesterday, no signs of acute blood loss, will continue to monitor. GI PPX: pantoprazole 40 IVP Visit type - Emergency Visit Emergency Visit: No - New Patient This patient is new to me today: No - Critical Care Critical Care patient: Yes Total Critical Care Time (in minutes): 35 Critical Care Statement: The care of this patient involved high complexity decision making to prevent further life threatening deterioration of the patient 's condition and/or to evaluate & treat vital organ system(s) failure or risk of failure. - Discharge Referral Referred to [facility] Med [facility] No
--- NOTE | 2019-02-11 12:36 | PN ---
Progress Note, Physician History of Present Illness: Pt seen and examined at bedside. She remains in the ICU. She remains intubated. - Current Medication List Current Medications: Active Medications Acetaminophen (Ofirmev Injection -) 1,000 mg IVPB Q6H PRN PRN Reason: FEVER Last Admin: 02/09/19 23:17 Dose: 1,000 mg Budesonide/Formoterol Fumarate (Symbicort 80/4.5mcg -) 2 puff IH BID LANCE Last Admin: 02/11/19 10:27 Dose: Not Given Chlorhexidine Gluconate (Hibiclens For Decolonization -) 1 applic TP HS LANCE Last Admin: 02/10/19 22:02 Dose: 1 applic Chlorhexidine Gluconate (Peridex -) 15 ml MM BID LANCE Gabapentin (Neurontin -) 300 mg PO DAILY LANCE Last Admin: 02/11/19 11:57 Dose: Not Given Heparin Sodium (Porcine) (Heparin -) 1,000 unit IVPUSH PRN PRN PRN Reason: Heparin Heparin Sodium (Porcine) (Heparin -) 5,000 unit IVPUSH PRN PRN PRN Reason: Heparin Last Admin: 02/10/19 22:01 Dose: 5,000 unit Norepinephrine Bitartrate 8, (000 mcg/ Dextrose) 500 mls @ 18.75 mls/hr IV TITR [facility], [facility]; Protocol Last Titration: 02/11/19 10:00 Dose: 0 mcg/min, 0 mls/hr Vasopressin 50 units/ Sodium (Chloride) 100 mls @ 4 mls/hr IVPB ASDIR LANCE; Protocol Last Admin: 02/10/19 13:38 Dose: Not Given Meropenem 500 mg/ Dextrose 100 mls @ 200 mls/hr IVPB Q12H [facility] Last Admin: 02/11/19 10:26 Dose: 200 mls/hr Propofol (Diprivan -) 1,000,000 mcg in 100 mls @ 3.765 mls/hr IVPB TITR [facility], [facility]; Protocol Last Admin: 02/11/19 03:56 Dose: 50 mcg/kg/min, 37.65 mls/hr Midazolam HCl 100 mg/ Sodium (Chloride) 100 mls @ 1 mls/hr IVPB TITR LANCE; Protocol Last Titration: 02/11/19 11:00 Dose: 0 mg/hr, 0 mls/hr Heparin Sodium (Porcine) 25, (000 unit/ Sodium Chloride) 500 mls @ 20 mls/hr IV TITR [facility], [facility]; Protocol Last Titration: 02/11/19 05:11 Dose: 1,300 unit/hr, 26 mls/hr Insulin Aspart (Novolog Vial Sliding Scale -) 1 vial SQ ACHS [facility], [facility]1983; Protocol Last Admin: 02/11/19 11:59 Dose: Not Given Metoprolol Tartrate (Lopressor Injection -) 25 mg IVPUSH BID [facility] Metoprolol Tartrate (Lopressor Injection -) 5 mg IVPUSH PRN PRN PRN Reason: HYPERTENSION Mupirocin (Bactroban Ointment (For Decolonization) -) 1 applic NS BID [facility] Stop: 02/13/19 09:59 Last Admin: 02/11/19 10:26 Dose: 1 applic Nystatin (Mycostatin Cream -) 1 applic TP Q6HPO [facility] Last Admin: 02/11/19 11:59 Dose: 1 applic Pantoprazole Sodium (Protonix Iv) 40 mg IVPUSH DAILY [facility] Last Admin: 02/11/19 10:27 Dose: 40 mg - Objective Vital Signs: Vital Signs Temperature 99.5 F 02/11/19 10:00 Pulse Rate 111 H 02/11/19 11:00 Respiratory Rate 26 H 02/11/19 12:17 Blood Pressure 93/59 L 02/11/19 11:00 O2 Sat by Pulse Oximetry (%) 100 02/11/19 11:15 Constitutional: Yes: Calm Eyes: Yes: Conjunctiva Clear Cardiovascular: Yes: S1, S2 Respiratory: Yes: Intubated, Mechanically Ventilated Gastrointestinal: Yes: Soft, Abdomen, Obese Genitourinary: Yes: Johnson Present Musculoskeletal: Yes: Muscle Weakness Edema: Yes Edema: LLE: 2+, RLE: 2+ Integumentary: Yes: Venous Stasis Changes Wound/Incision: Yes: Open to air Neurological: Yes: Lethargy Labs: CBC, BMP 02/11/19 05:00 02/11/19 05:00 INR, PTT INR 1.71 (0.83-1.09) H 02/09/19 05:00 Fibrinogen 474.0 mg/dL (238-498) 02/11/19 08:58 Problem List - Problems (1) NOVA (acute kidney injury) Code(s): N17.9 - ACUTE KIDNEY FAILURE, UNSPECIFIED (2) Acute metabolic encephalopathy Code(s): G93.41 - METABOLIC ENCEPHALOPATHY (3) Sepsis Code(s): A41.9 - SEPSIS, UNSPECIFIED ORGANISM Qualifiers: Sepsis type: sepsis due to unspecified organism Sepsis acute organ dysfunction status: unspecified Qualified Code(s): A41.9 - Sepsis, unspecified organism (4) ARF (acute renal failure) Code(s): N17.9 - ACUTE KIDNEY FAILURE, UNSPECIFIED Assessment/Plan Current Medications Generic Name Dose Route Start Last Admin Trade Name Freq PRN Reason Stop Dose Admin Acetaminophen 1,000 mg 02/09/19 21:35 02/09/19 23:17 Ofirmev Injection - IVPB 1,000 mg Q6H PRN Administration FEVER Budesonide/Formoterol Fumarate 2 puff 02/08/19 10:00 02/11/19 10:27 Symbicort 80/4.5mcg - IH Not Given BID LANCE Chlorhexidine Gluconate 1 applic 02/08/19 22:00 02/10/19 22:02 Hibiclens For Decolonization - TP 1 applic HS LANCE Administration Chlorhexidine Gluconate 15 ml 02/11/19 12:15 Peridex - MM BID LANCE Gabapentin 300 mg 02/08/19 10:00 02/11/19 11:57 Neurontin - PO Not Given DAILY LANCE Heparin Sodium (Porcine) 1,000 unit 02/10/19 12:02 Heparin - IVPUSH PRN PRN Heparin Heparin Sodium (Porcine) 5,000 unit 02/10/19 12:02 02/10/19 22:01 Heparin - IVPUSH 5,000 unit PRN PRN Administration Heparin Norepinephrine Bitartrate 8, 500 mls @ 18.75 mls/hr 02/08/19 13:00 02/11/19 10:00 000 mcg/ Dextrose IV 0 mcg/min TITR LANCE 0 mls/hr Titration Protocol 5 MCG/MIN Vasopressin 50 units/ Sodium 100 mls @ 4 mls/hr 02/08/19 13:30 02/10/19 13:38 Chloride IVPB Not Given ASDIR LANCE Protocol 2 UNITS/HR Meropenem 500 mg/ Dextrose 100 mls @ 200 mls/hr 02/08/19 22:00 02/11/19 10:26 IVPB 200 mls/hr Q12H LANCE Administration Propofol 1,000,000 mcg in 100 mls @ 3.765 mls/hr 02/08/19 22:00 02/11/19 03: 56 Diprivan - IVPB 50 mcg/kg/min TITR LANCE 37.65 mls/hr Administration Protocol 5 MCG/KG/MIN Midazolam HCl 100 mg/ Sodium 100 mls @ 1 mls/hr 02/09/19 00:15 02/11/19 11:00 Chloride IVPB 0 mg/hr TITR LANCE 0 mls/hr Titration Protocol 1 MG/HR Heparin Sodium (Porcine) 25, 500 mls @ 20 mls/hr 02/10/19 12:30 02/11/19 05: 11 000 unit/ Sodium Chloride IV 1,300 unit/hr TITR LANCE 26 mls/hr Titration Protocol 1,000 UNIT/HR Insulin Aspart 1 vial 02/08/19 11:00 02/11/19 11:59 Novolog Vial Sliding Scale - SQ Not Given ACHS LANCE Protocol Metoprolol Tartrate 25 mg 02/11/19 12:15 Lopressor Injection - IVPUSH BID LANCE Metoprolol Tartrate 5 mg 02/11/19 12:11 Lopressor Injection - IVPUSH PRN PRN HYPERTENSION Mupirocin 1 applic 02/08/19 10:00 02/11/19 10:26 Bactroban Ointment (For Decolonization) - NS 02/13/19 09:59 1 applic BID LANCE Administration Nystatin 1 applic 02/08/19 12:00 02/11/19 11:59 Mycostatin Cream - TP 1 applic Q6HPO LANCE Administration Pantoprazole Sodium 40 mg 02/09/19 16:45 02/11/19 10:27 Protonix Iv IVPUSH 40 mg DAILY LANCE Administration Impression 1. NOVA 2. hyperkalemia 3. obesity 4. DM 5. a-fib 6. HTN 7. chronic lower extremity ulcers 8. gastritis 9. sepsis 10. hyperglycemia 11. metabolic acidosis 12. acute resp failure Plan - renal function is improving - replace potassium - d/c shiley cath - monitor urine output - no need for HD today - cont wound care - vent support
--- NOTE | 2019-02-11 13:02 | PN ---
Teaching Attending Note Name of Resident: Hermes Lazcano ATTENDING PHYSICIAN STATEMENT I saw and evaluated the patient. I reviewed the resident's note and discussed the case with the resident. I agree with the resident's findings and plan as documented. SUBJECTIVE: Pt seen and examined in the ICU. Remains intubated, sedated on lower dose levophed gtt. Off vasopressin. Did not tolerate CPAP/PS this AM due to tachypnea/low TV. Fever curve down. Good urine output. OBJECTIVE: Vital Signs Period Temp Pulse Resp BP Sys/Callahan Pulse Ox Last 24 Hr 99.5 F-100.0 F 83-120 14-29 89-137/47-80 99-100 Intake & Output 02/08/19 02/09/19 02/10/19 02/11/19 23:59 23:59 23:59 23:59 Intake Total 6340 4651.8 2265 1055 Output Total 456 2550 2350 1100 Balance 5884 2101.8 -85 -45 Weight 125.5 kg 134.445 kg 134.263 kg 134.309 kg Gen: intubated, sedated Heart: RRR Lung: decreased breath sounds at the bases Abd: soft, nontender Ext: +erythema/excoriations CBC, BMP 02/11/19 05:00 02/11/19 05:00 Active Medications Acetaminophen (Ofirmev Injection -) 1,000 mg IVPB Q6H PRN PRN Reason: FEVER Last Admin: 02/09/19 23:17 Dose: 1,000 mg Budesonide/Formoterol Fumarate (Symbicort 80/4.5mcg -) 2 puff IH BID LANCE Last Admin: 02/11/19 10:27 Dose: Not Given Chlorhexidine Gluconate (Hibiclens For Decolonization -) 1 applic TP HS LANCE Last Admin: 02/10/19 22:02 Dose: 1 applic Chlorhexidine Gluconate (Peridex -) 15 ml MM BID LANCE Gabapentin (Neurontin -) 300 mg PO DAILY LANCE Last Admin: 02/11/19 11:57 Dose: Not Given Heparin Sodium (Porcine) (Heparin -) 1,000 unit IVPUSH PRN PRN PRN Reason: Heparin Heparin Sodium (Porcine) (Heparin -) 5,000 unit IVPUSH PRN PRN PRN Reason: Heparin Last Admin: 02/10/19 22:01 Dose: 5,000 unit Norepinephrine Bitartrate 8, (000 mcg/ Dextrose) 500 mls @ 18.75 mls/hr IV TITR LANCE; Protocol Last Titration: 02/11/19 10:00 Dose: 0 mcg/min, 0 mls/hr Vasopressin 50 units/ Sodium (Chloride) 100 mls @ 4 mls/hr IVPB ASDIR LANCE; Protocol Last Admin: 02/10/19 13:38 Dose: Not Given Meropenem 500 mg/ Dextrose 100 mls @ 200 mls/hr IVPB Q12H LANCE Last Admin: 02/11/19 10:26 Dose: 200 mls/hr Propofol (Diprivan -) 1,000,000 mcg in 100 mls @ 3.765 mls/hr IVPB TITR LANCE; Protocol Last Admin: 02/11/19 03:56 Dose: 50 mcg/kg/min, 37.65 mls/hr Midazolam HCl 100 mg/ Sodium (Chloride) 100 mls @ 1 mls/hr IVPB TITR LANCE; Protocol Last Titration: 02/11/19 11:00 Dose: 0 mg/hr, 0 mls/hr Heparin Sodium (Porcine) 25, (000 unit/ Sodium Chloride) 500 mls @ 20 mls/hr IV TITR LANCE; Protocol Last Titration: 02/11/19 05:11 Dose: 1,300 unit/hr, 26 mls/hr Insulin Aspart (Novolog Vial Sliding Scale -) 1 vial SQ ACHS [facility]; Protocol Last Admin: 02/11/19 11:59 Dose: Not Given Metoprolol Tartrate (Lopressor Injection -) 25 mg IVPUSH BID [facility] Metoprolol Tartrate (Lopressor Injection -) 5 mg IVPUSH PRN PRN PRN Reason: HYPERTENSION Mupirocin (Bactroban Ointment (For Decolonization) -) 1 applic NS BID [facility] Stop: 02/13/19 09:59 Last Admin: 02/11/19 10:26 Dose: 1 applic Nystatin (Mycostatin Cream -) 1 applic TP Q6HPO [facility] Last Admin: 02/11/19 11:59 Dose: 1 applic Pantoprazole Sodium (Protonix Iv) 40 mg IVPUSH DAILY [facility] Last Admin: 02/11/19 10:27 Dose: 40 mg ASSESSMENT AND PLAN: Acute Respiratory Failure Cellulitis/Infected Leg Ulcers Septic Shock Acute Kidney Injury requiring emergent HD Hyperkalemia improved Lactic Acidosis Atrial Fibrillation HTN DM Hyperlipidemia Anemia - continue antibiotics - wound care - monitor urine output, creatinine - titrate pressors to maintain MAP >65 - rate control - continue anticoagulation - daily sedation vacations to assess mental status - spontaneous breathing trials as tolerated when mental status improved - start enteral feeds - DVT/GI prophylaxis critical care time spent in reviewing chart, evaluating patient and formulating plan 35 min
[2019-02-11] MEDS: CHLORHEXIDINE GLUCONATE 0.12% 15ML CUP MM SCH ×2 (13:37→21:29)
[2019-02-11] MEDS: HEPARIN - 25,000 UNIT in SODIUM CHLORIDE 495 ML IV SCH (13:37)
[2019-02-11] MEDS: VASOPRESSIN 50 UNITS in SODIUM CHLORIDE 97.5 ML IVPB SCH (13:38)
[2019-02-11 15:26] LABS: BASO % 0.4 % (0-2.0); EOS % 6.5 % (0-4.5); HEMATOCRIT 27.6 % (32.4-45.2); HEMOGLOBIN 9.3 GM/dL (10.7-15.3); LYMPH % 3.4 % (8-40); MCH 28.8 pg (25.7-33.7); MCHC 33.8 g/dl (32.0-36.0); MEAN CELL VOLUME 85.1 fl (80-96); MONO % 4.3 % (3.8-10.2); NEUT % 85.4 % (42.8-82.8); PLATELET COUNT 205 K/MM3 (134-434); RBC 3.24 M/mm3 (3.60-5.2); RDW 15.7 % (11.6-15.6); WHITE BLOOD COUNT 10.6 K/mm3 (4.0-10.0)
[2019-02-11] MEDS ORDERED: NOREPINEPHRINE BITARTRATE 4 MG/4 ML ML IV ONE (17:03)
[2019-02-11] MEDS ORDERED: LACTATED RINGERS SOLUTION 1000 ML INFUS.BAG IV ONE (17:06)
[2019-02-11] MEDS: METOPROLOL TARTRATE 5 MG/5 ML VIAL IVPUSH SCH ×2 (17:34→21:34)
[2019-02-11] MEDS: NOREPINEPHRINE BITARTRATE 8,000 MCG in DEXTROSE 5%-WATER - 492 ML IV SCH (17:35)
[2019-02-11 18:24] LABS: BLOOD UREA NITROGEN 37.9 mg/dL (7-18); CALCIUM 8.9 mg/dL (8.5-10.1); CREATININE 1.3 mg/dL (0.55-1.3); POTASSIUM 3.3 mmol/L (3.5-5.1)
--- NOTE | 2019-02-11 20:08 | PN ---
Teaching Attending Note Name of Resident: Danie Myers ATTENDING PHYSICIAN STATEMENT I saw and evaluated the patient. I reviewed the resident's note and discussed the case with the resident. I agree with the resident's findings and plan as documented. SUBJECTIVE: Patient seen and examined Septic shock with acute hypoxic respiratory failure, sedated, intubated on pressors. NOVA Cellulitis with chronic leg ulcers atrial fib Last Vital Signs Temp Pulse Resp BP Pulse Ox 98.6 F 102 H 20 131/80 100 02/11/19 19:00 02/11/19 19:00 02/11/19 19:00 02/11/19 19:00 02/11/19 11:15 [place] HEENT: MADY, EOM Intact Oropharynx: intubated Cor: atrial fib Lungs: diminished breath sounds bilaterally Abd: Soft, Normal bowel sounds, No organomegaly Ext:NLE edema; dressing LE Skin: stasis , cellulitis CBC, BMP 02/11/19 14:40 02/11/19 15:00 Current Medications Generic Name Dose Route Start Last Admin Trade Name Freq PRN Reason Stop Dose Admin Acetaminophen 1,000 mg 02/09/19 21:35 02/09/19 23:17 Ofirmev Injection - IVPB 1,000 mg Q6H PRN Administration FEVER Budesonide/Formoterol Fumarate 2 puff 02/08/19 10:00 02/11/19 10:27 Symbicort 80/4.5mcg - IH Not Given BID LANCE Chlorhexidine Gluconate 1 applic 02/08/19 22:00 02/10/19 22:02 Hibiclens For Decolonization - TP 1 applic HS LANCE Administration Chlorhexidine Gluconate 15 ml 02/11/19 12:15 02/11/19 13:37 Peridex - MM 15 ml BID LANCE Administration Gabapentin 300 mg 02/08/19 10:00 02/11/19 11:57 Neurontin - PO Not Given DAILY LANCE Heparin Sodium (Porcine) 1,000 unit 02/10/19 12:02 Heparin - IVPUSH PRN PRN Heparin Heparin Sodium (Porcine) 5,000 unit 02/10/19 12:02 02/10/19 22:01 Heparin - IVPUSH 5,000 unit PRN PRN Administration Heparin Norepinephrine Bitartrate 8, 500 mls @ 18.75 mls/hr 02/08/19 13:00 02/11/19 17:35 000 mcg/ Dextrose IV 4 mcg/min TITR LANCE 15 mls/hr Administration Protocol 5 MCG/MIN Vasopressin 50 units/ Sodium 100 mls @ 4 mls/hr 02/08/19 13:30 02/11/19 13:38 Chloride IVPB Not Given ASDIR LANCE Protocol 2 UNITS/HR Meropenem 500 mg/ Dextrose 100 mls @ 200 mls/hr 02/08/19 22:00 02/11/19 10:26 IVPB 200 mls/hr Q12H LANCE Administration Propofol 1,000,000 mcg in 100 mls @ 3.765 mls/hr 02/08/19 22:00 02/11/19 03: 56 Diprivan - IVPB 50 mcg/kg/min TITR LANCE 37.65 mls/hr Administration Protocol 5 MCG/KG/MIN Midazolam HCl 100 mg/ Sodium 100 mls @ 1 mls/hr 02/09/19 00:15 02/11/19 11:00 Chloride IVPB 0 mg/hr TITR LANCE 0 mls/hr Titration Protocol 1 MG/HR Heparin Sodium (Porcine) 25, 500 mls @ 20 mls/hr 02/10/19 12:30 02/11/19 18: 16 000 unit/ Sodium Chloride IV 1,450 unit/hr TITR LANCE 29 mls/hr Titration Protocol 1,000 UNIT/HR Insulin Aspart 1 vial 02/08/19 11:00 02/11/19 17:37 Novolog Vial Sliding Scale - SQ 2 units ACHS LANCE Administration Protocol Metoprolol Tartrate 25 mg 02/11/19 12:15 02/11/19 17:34 Lopressor Injection - IVPUSH Not Given BID LANCE Metoprolol Tartrate 5 mg 02/11/19 12:11 Lopressor Injection - IVPUSH PRN PRN HYPERTENSION Mupirocin 1 applic 02/08/19 10:00 02/11/19 10:26 Bactroban Ointment (For Decolonization) - NS 02/13/19 09:59 1 applic BID LANCE Administration Nystatin 1 applic 02/08/19 12:00 02/11/19 11:59 Mycostatin Cream - TP 1 applic Q6HPO LANCE Administration Pantoprazole Sodium 40 mg 02/09/19 16:45 02/11/19 10:27 Protonix Iv IVPUSH 40 mg DAILY LANCE Administration IMPRESSION: ANEMIA- CHRONIC DISEASE , ACUTE KIDNEY INJURY Acute Respiratory Failure/INTUBATED PRESSORS Cellulitis/Infected Leg Ulcers Septic Shock Acute Kidney Injury HEMODIALYSIS Lactic Acidosis Atrial Fibrillation HTN DM Hyperlipidemia LITTLE TO ADD - ACUTE /CHRONIC DISEASE ANEMIA OBJECTIVE: ASSESSMENT AND PLAN:
[2019-02-11] MEDS: CHLORHEXIDINE GLUCONATE 4% CLEANSER FOR DECOLONIZATION TP SCH (21:09)
[2019-02-11] MEDS ORDERED: PT OWN MED DRAWER 7, Y5N ONE (21:33)
[2019-02-12] MEDS ORDERED: MIDAZOLAM HCL 2 MG/2 ML SINGLE DOSE VIAL IVPUSH PRN ×2 (00:28→00:50)
[2019-02-12] MEDS: NYSTATIN 100,000 UNIT/GM TOPICAL CREAM 15 GM TUBE TP SCH ×4 (00:36→17:36)
[2019-02-12] MEDS ORDERED: MIDAZOLAM HCL 5 MG/1 ML Single Dose Vial ONE (00:42)
[2019-02-12] MEDS ORDERED: MIDAZOLAM HCL 5 MG/1 ML Single Dose Vial IVPUSH PRN (00:48)
--- NOTE | 2019-02-12 00:51 | CONSULT ---
Consult Consult Specialty:: ENDOCRINE Referred by:: GARRETT AYALA Reason for Consultation:: DM T2 - History of Present Illness Chief Complaint: INTUBATED SEDATED History of Present Illness: 53 y.o. female with PMH of T2 DM,CKD,chronic b/l LE ulcers, cellulitis, HTN, HLD, Anemia, GERD, obesity, AFIB, Asthma, and bipolar disorder brought to the ER by her brother for lethargy/AMS for past several days. Apparently pt has been noncompliant with follow up for wound care. she was found with worsening renal failure,dehydration,sepsis required intubation for hypoxemia and hypotenison.she has required insulin coverage for hyperglycmia and insulin resistance. - Past Medical History Cardio/Vascular: Yes: AFIB, HTN Pulmonary: Yes: Asthma Gastrointestinal: Yes: Other (gallstones) Hepatobiliary: Yes: Cholelithiasis (passed without surgery), Other (fatty liver) Renal/: Yes: Renal Inusuff Infectious Disease: Yes: Other (LE cellulitis) Psych: Yes: Bipolar Endocrine: Yes: Diabetes Mellitus Dermatology: Yes: Cellulitis (b/l LE with ulcerations) Additional Medical History: obesity - Alcohol/Substance Use Hx Alcohol Use: No History of Substance Use: reports: Prescription (narcotics) - Smoking History Smoking history: Former smoker Have you smoked in the past 12 months: No Aproximately how many cigarettes per day: 0 If you are a former smoker, when did you quit?: quit age 13 - Social History Usual Living Arrangement: Alone ADL: Independent 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 History of Recent Travel: No Home Medications - Allergies Allergies/Adverse Reactions: Allergies Allergy/AdvReac Type Severity Reaction Status Date / Time nut - unspecified Allergy Verified 02/08/19 09:45 Penicillins Allergy Verified 02/08/19 09:45 walnut Allergy Verified 02/08/19 09:45 - Home Medications Home Medications: Ambulatory Orders Budesonide/Formeterol Fumarate [SYMBICORT 80/4.5mcg -] 2 puff IH BID inhaler Insulin Sliding Scale [Novolog Vial Sliding Scale -] 1 vial SQ ACHS units 02/20 Pantoprazole Sodium [Protonix -] 40 mg PO DAILY tablet.ec 07/04/17 Gabapentin 300 mg PO DAILY 07/15/18 Insulin Glargine,Hum.rec.anlog [Toujeo Max Solostar] 300 unit SQ BID #15 insuln.pen 07/22/18 Metoprolol Tartrate [Lopressor -] 25 mg PO DAILY #30 tablet 07/22/18 Polyethylene Glycol 3350 [Miralax 119 gm Btl -] 17 gm PO DAILY bottle 07/22/18 Apixaban [Eliquis -] 5 mg PO BID #60 tablet 11/22/18 Bacitracin - [Bacitracin Topical Ointment -] 1 applic TP BID tube 11/22/18 Clindamycin HCl 300 mg PO TID #15 capsule 11/22/18 Insulin (Levemir) [Levemir Vial] 25 units SQ BID units 11/22/18 Magnesium Oxide [Mag-Ox -] 400 mg PO BID tablet 11/22/18 Nystatin Cream [Mycostatin Cream -] 1 applic TP Q6HPO applic 11/22/18 Pantoprazole Sodium [Protonix -] 40 mg PO DAILY #30 tablet.ec 11/22/18 Family Disease History - Family Disease History Family Disease History: Other: Father ( age 50 CVA), Mother ( 82 ), Brother (stomach cancer), Sister (breast cancer) Physical Exam Vital Signs: Vital Signs Temperature 98.7 F 02/11/19 20:00 Pulse Rate 87 02/11/19 21:34 Respiratory Rate 22 H 02/11/19 20:31 Blood Pressure 109/73 02/11/19 21:34 O2 Sat by Pulse Oximetry (%) 99 02/11/19 20:31 Constitutional: Yes: Obese HENT: Yes: Atraumatic, Normocephalic Neck: Yes: Trachea Midline Cardiovascular: Yes: Tachycardia Respiratory: Yes: CTA Bilaterally Gastrointestinal: Yes: Hypoactive Bowel Sounds ...Rectal Exam: Yes: Deferred Extremities: Yes: Cool, Delayed Capillary Refill Edema: Yes Edema: LLE: 2+, RLE: 2+ Wound/Incision: Yes: Draining Neurological: Yes: Unresponsive Labs: CBC, BMP 02/11/19 14:40 02/11/19 15:00 Problem List - Problems (1) Type 2 diabetes mellitus with hyperosmolarity with coma Code(s): E11.01 - TYPE 2 DIABETES MELLITUS WITH HYPEROSMOLARITY WITH COMA Qualifiers: Diabetes mellitus buttermaker continuous churn insulin use: with buttermaker continuous churn use Qualified Code( s): E11.01 - Type 2 diabetes mellitus with hyperosmolarity with coma; Z79.4 - terminal operations supervisor (current) use of insulin (2) NOVA (acute kidney injury) Code(s): N17.9 - ACUTE KIDNEY FAILURE, UNSPECIFIED (3) Acute metabolic encephalopathy Code(s): G93.41 - METABOLIC ENCEPHALOPATHY (4) Bilateral leg ulcer Code(s): L97.919 - NON-PRS CHRONIC ULC UNSP PRT OF R LOW LEG W UNSP SEVERITY; L97.929 - NON-PRS CHRONIC ULC UNSP PRT OF L LOW LEG W UNSP SEVERITY (5) Hypokalemia Code(s): E87.6 - HYPOKALEMIA (6) Sepsis Code(s): A41.9 - SEPSIS, UNSPECIFIED ORGANISM Qualifiers: Sepsis type: sepsis due to unspecified organism Sepsis acute organ dysfunction status: unspecified Qualified Code(s): A41.9 - Sepsis, unspecified organism Assessment/Plan Current Active Problems NOVA (acute kidney injury) (Acute) Acute metabolic encephalopathy (Acute) Anemia (Acute) Bilateral leg ulcer (Acute) Hypokalemia (Acute) Metabolic encephalopathy (Acute) Noncompliance (Acute) Sepsis (Acute) Uncontrolled diabetes mellitus (Acute) Abnormal Lab Results 02/11/19 02/11/19 02/11/19 05:00 05:00 14:40 WBC 11.1 H 10.6 H RBC 3.23 L 3.24 L Hgb 9.2 L 9.3 L Hct 27.5 L 27.6 L RDW 15.7 H Absolute Neuts (auto) 9.3 H 9.0 H Neutrophils % 84.0 H 85.4 H Lymphocytes % 4.1 L D 3.4 L Eosinophils % 7.4 H D 6.5 H PTT (Actin FS) Potassium 3.0 L Anion Gap BUN 38.2 H Creatinine 1.4 H Random Glucose 149 H Iron 31 L TIBC 131 L Unsaturated IBC 100 L AST 11 L Total Protein 5.5 L Albumin 2.2 L Vitamin B12 1070 H Random Vancomycin 02/11/19 02/11/19 02/11/19 14:40 14:40 15:00 WBC RBC Hgb Hct RDW Absolute Neuts (auto) Neutrophils % Lymphocytes % Eosinophils % PTT (Actin FS) 19.1 L Potassium 3.3 L Anion Gap 7 L BUN 37.9 H Creatinine Random Glucose 147 H Iron TIBC Unsaturated IBC AST Total Protein Albumin Vitamin B12 Random Vancomycin 16.2 L Laboratory Results - last 24 hr 02/11/19 02/11/19 02/11/19 04:25 05:00 05:00 WBC 11.1 H RBC 3.23 L Hgb 9.2 L Hct 27.5 L MCV 85.2 MCH 28.4 MCHC 33.3 RDW 15.6 Plt Count 226 D MPV 9.1 Absolute Neuts (auto) 9.3 H Neutrophils % 84.0 H Lymphocytes % 4.1 L D Monocytes % 4.0 D Eosinophils % 7.4 H D Basophils % 0.5 D Nucleated RBC % 0 Retic Count 0.78 PTT (Actin FS) 25.6 Fibrinogen Sodium Potassium Chloride Carbon Dioxide Anion Gap BUN Creatinine Est GFR (CKD-EPI)AfAm Est GFR (CKD-EPI)NonAf POC Glucometer Random Glucose Calcium Iron TIBC Iron Saturation Unsaturated IBC Ferritin Total Bilirubin AST ALT Alkaline Phosphatase LD Total Total Protein Albumin Vitamin B12 Serum Folate Random Vancomycin 19.5 02/11/19 02/11/19 02/11/19 05:00 06:27 08:58 WBC RBC Hgb Hct MCV MCH MCHC RDW Plt Count MPV Absolute Neuts (auto) Neutrophils % Lymphocytes % Monocytes % Eosinophils % Basophils % Nucleated RBC % Retic Count PTT (Actin FS) Fibrinogen 474.0 Sodium 144 Potassium 3.0 L Chloride 104 Carbon Dioxide 31 Anion Gap 8 BUN 38.2 H Creatinine 1.4 H Est GFR (CKD-EPI)AfAm 48.90 Est GFR (CKD-EPI)NonAf 42.19 POC Glucometer 156 Random Glucose 149 H Calcium 9.2 Iron 31 L TIBC 131 L Iron Saturation 23 Unsaturated IBC 100 L Ferritin 231.1 Total Bilirubin 0.5 AST 11 L ALT 19 Alkaline Phosphatase 100 LD Total 150 Total Protein 5.5 L Albumin 2.2 L Vitamin B12 1070 H Serum Folate 4 Random Vancomycin 02/11/19 02/11/19 02/11/19 11:34 14:40 14:40 WBC 10.6 H RBC 3.24 L Hgb 9.3 L Hct 27.6 L MCV 85.1 MCH 28.8 MCHC 33.8 RDW 15.7 H Plt Count 205 MPV 9.0 Absolute Neuts (auto) 9.0 H Neutrophils % 85.4 H Lymphocytes % 3.4 L Monocytes % 4.3 Eosinophils % 6.5 H Basophils % 0.4 Nucleated RBC % 0 Retic Count PTT (Actin FS) 19.1 L Fibrinogen Sodium Potassium Chloride Carbon Dioxide Anion Gap BUN Creatinine Est GFR (CKD-EPI)AfAm Est GFR (CKD-EPI)NonAf POC Glucometer 137 Random Glucose Calcium Iron TIBC Iron Saturation Unsaturated IBC Ferritin Total Bilirubin AST ALT Alkaline Phosphatase LD Total Total Protein Albumin Vitamin B12 Serum Folate Random Vancomycin 02/11/19 02/11/19 02/11/19 14:40 15:00 16:43 WBC RBC Hgb Hct MCV MCH MCHC RDW Plt Count MPV Absolute Neuts (auto) Neutrophils % Lymphocytes % Monocytes % Eosinophils % Basophils % Nucleated RBC % Retic Count PTT (Actin FS) Fibrinogen Sodium 142 Potassium 3.3 L Chloride 106 Carbon Dioxide 29 Anion Gap 7 L BUN 37.9 H Creatinine 1.3 Est GFR (CKD-EPI)AfAm 53.48 Est GFR (CKD-EPI)NonAf 46.15 POC Glucometer 148 Random Glucose 147 H Calcium 8.9 Iron TIBC Iron Saturation Unsaturated IBC Ferritin Total Bilirubin AST ALT Alkaline Phosphatase LD Total Total Protein Albumin Vitamin B12 Serum Folate Random Vancomycin 16.2 L 02/11/19 21:37 WBC RBC Hgb Hct MCV MCH MCHC RDW Plt Count MPV Absolute Neuts (auto) Neutrophils % Lymphocytes % Monocytes % Eosinophils % Basophils % Nucleated RBC % Retic Count PTT (Actin FS) Fibrinogen Sodium Potassium Chloride Carbon Dioxide Anion Gap BUN Creatinine Est GFR (CKD-EPI)AfAm Est GFR (CKD-EPI)NonAf POC Glucometer 138 Random Glucose Calcium Iron TIBC Iron Saturation Unsaturated IBC Ferritin Total Bilirubin AST ALT Alkaline Phosphatase LD Total Total Protein Albumin Vitamin B12 Serum Folate Random Vancomycin Laboratory Tests 06/19/17 11/17/18 11/18/18 06:35 05:04 05:48 POC Glucometer 190 Hemoglobin A1c % 10.6 H 11.5 H 11/18/18 11/18/18 11/18/18 11:58 17:01 21:02 POC Glucometer 291 235 211 Hemoglobin A1c % 02/10/19 05:30 POC Glucometer Hemoglobin A1c % 9.3 H plan: bgm qid coverage novolog iv nutrition once started will add levemir 10 units bid supportive measures
[2019-02-12] MEDS: MIDAZOLAM 100 MG in SODIUM CHLORIDE 100 ML IVPB SCH (01:40)
[2019-02-12] MEDS: HEPARIN NA (PORCINE) 5,000 UNITS/ML 1ML VIAL IVPUSH PRN (01:58)
[2019-02-12] MEDS: PROPOFOL 1,000,000 MCG/100 ML VIAL IVPB SCH ×5 (02:00→22:26)
[2019-02-12] MEDS: INSULIN SLIDING SCALE (NOVOLOG) 1 VIAL SQ SCH ×4 (06:35→21:56)
[2019-02-12 07:20] LABS: HEMATOCRIT 26.7 % (32.4-45.2); MCH 29.3 pg (25.7-33.7); MCHC 33.9 g/dl (32.0-36.0); MEAN CELL VOLUME 86.2 fl (80-96); MEAN PLT VOLUME 9.3 fl (7.5-11.1); PLATELET COUNT 216 K/MM3 (134-434); RBC 3.09 M/mm3 (3.60-5.2); RDW 15.8 % (11.6-15.6); WHITE BLOOD COUNT 9.2 K/mm3 (4.0-10.0)
[2019-02-12 09:09] LABS: ALBUMIN 1.8 g/dl (3.4-5.0); BILIRUBIN,TOTAL 0.4 mg/dL (0.2-1); BLOOD UREA NITROGEN 32.3 mg/dL (7-18); TOT PROT 4.6 g/dl (6.4-8.2)
[2019-02-12 09:10] LABS: POTASSIUM 2.8 mmol/L (3.5-5.1)
[2019-02-12] MEDS ORDERED: PT OWN MED DRAWER 7, Y5N ONE (09:23)
[2019-02-12] MEDS: MEROPENEM 500 MG in DEXTROSE 5%-WATER 100 ML IVPB SCH ×2 (09:29→21:40)
[2019-02-12] MEDS: GABAPENTIN 300 MG CAPSULE (FP) PO SCH (09:30)
[2019-02-12] MEDS: PANTOPRAZOLE SODIUM 40 MG VIAL IVPUSH SCH (09:30)
[2019-02-12] MEDS: BUDESONIDE/FORMETEROL FUMARATE 80/4.5 mcg INHALER IH SCH ×2 (09:30→21:41)
[2019-02-12] MEDS: CHLORHEXIDINE GLUCONATE 0.12% 15ML CUP MM SCH ×2 (09:31→21:43)
[2019-02-12] MEDS: MUPIROCIN 2% TOPICAL OINTMENT FOR DECOLONIZATION NS SCH ×2 (09:31→21:25)
--- NOTE | 2019-02-12 11:12 | PN ---
Progress Note, Physician Chief Complaint: INTUBATED IN ICU AND SEDATED NO ACUTE CHANGES OVER NIGHT - Current Medication List Current Medications: Active Medications Acetaminophen (Ofirmev Injection -) 1,000 mg IVPB Q6H PRN PRN Reason: FEVER Last Admin: 02/09/19 23:17 Dose: 1,000 mg Budesonide/Formoterol Fumarate (Symbicort 80/4.5mcg -) 2 puff IH BID [facility] Last Admin: 02/12/19 09:30 Dose: Not Given Chlorhexidine Gluconate (Hibiclens For Decolonization -) 1 applic TP HS [facility] Last Admin: 02/11/19 21:09 Dose: 1 applic Chlorhexidine Gluconate (Peridex -) 15 ml MM BID [facility] Last Admin: 02/12/19 09:31 Dose: 15 ml Gabapentin (Neurontin -) 300 mg PO DAILY [facility] Last Admin: 02/12/19 09:30 Dose: Not Given Heparin Sodium (Porcine) (Heparin -) 1,000 unit IVPUSH PRN PRN PRN Reason: Heparin Heparin Sodium (Porcine) (Heparin -) 5,000 unit IVPUSH PRN PRN PRN Reason: Heparin Last Admin: 02/12/19 01:58 Dose: 5,000 unit Norepinephrine Bitartrate 8, (000 mcg/ Dextrose) 500 mls @ 18.75 mls/hr IV TITR [facility]; Protocol Last Titration: 02/12/19 01:00 Dose: 3 mcg/min, 11.25 mls/hr Vasopressin 50 units/ Sodium (Chloride) 100 mls @ 4 mls/hr IVPB ASDIR [facility]; Protocol Last Admin: 02/11/19 13:38 Dose: Not Given Meropenem 500 mg/ Dextrose 100 mls @ 200 mls/hr IVPB Q12H [facility] Last Admin: 02/12/19 09:29 Dose: 200 mls/hr Propofol (Diprivan -) 1,000,000 mcg in 100 mls @ 3.765 mls/hr IVPB TITR [facility]; Protocol Last Titration: 02/12/19 04:40 Dose: 50 mcg/kg/min, 37.65 mls/hr Midazolam HCl 100 mg/ Sodium (Chloride) 100 mls @ 1 mls/hr IVPB TITR [facility]; Protocol Last Admin: 02/12/19 01:40 Dose: Not Given Heparin Sodium (Porcine) 25, (000 unit/ Sodium Chloride) 500 mls @ 20 mls/hr IV TITR [facility]; Protocol Last Titration: 02/12/19 07:37 Dose: 1,600 unit/hr, 32 mls/hr Insulin Aspart (Novolog Vial Sliding Scale -) [address] [facility]; Protocol Last Admin: 02/12/19 06:35 Dose: 2 units Metoprolol Tartrate (Lopressor Injection -) 5 mg IVPUSH Q4H PRN PRN Reason: TACHYCARDIA Midazolam HCl (Versed -) 2 mg IVPUSH Q8H PRN PRN Reason: AGITATION Last Admin: 02/12/19 00:59 Dose: 2 mg Mupirocin (Bactroban Ointment (For Decolonization) -) [address] [facility] Stop: 02/13/19 09:59 Last Admin: 02/12/19 09:31 Dose: 1 applic Nystatin (Mycostatin Cream -) [address] [facility] Last Admin: 02/12/19 06:30 Dose: 1 applic Pantoprazole Sodium (Protonix Iv) [address] [facility] Last Admin: 02/12/19 09:30 Dose: 40 mg - Objective Vital Signs: Vital Signs Temperature 98.6 F 02/12/19 10:00 Pulse Rate 102 H 02/12/19 10:00 Respiratory Rate 22 H 02/12/19 10:00 Blood Pressure 102/70 02/12/19 10:00 O2 Sat by Pulse Oximetry (%) 100 02/12/19 09:00 Constitutional: Yes: Other Cardiovascular: Yes: Regular Rate and Rhythm Respiratory: Yes: Diminished, Mechanically Ventilated Gastrointestinal: Yes: Soft, Abdomen, Obese Genitourinary: Yes: Johnson Present Edema: Yes Integumentary: Yes: Pressure Ulcer, Venous Stasis Changes Wound/Incision: Yes: Dressing Dry and Intact, Excoriated, Unapproximated Neurological: Yes: Other Labs: CBC, BMP 02/12/19 05:25 02/12/19 07:55 INR, PTT INR 1.71 (0.83-1.09) H 02/09/19 05:00 Fibrinogen 474.0 mg/dL (238-498) 02/11/19 08:58 Problem List - Problems (1) Noncompliance Code(s): Z91.19 - PATIENT'S NONCOMPLIANCE W OTH MEDICAL TREATMENT AND REGIMEN (2) Uncontrolled diabetes mellitus Code(s): E11.65 - TYPE 2 DIABETES MELLITUS WITH HYPERGLYCEMIA (3) NOVA (acute kidney injury) Code(s): N17.9 - ACUTE KIDNEY FAILURE, UNSPECIFIED (4) Acute metabolic encephalopathy Code(s): G93.41 - METABOLIC ENCEPHALOPATHY (5) Bilateral leg ulcer Code(s): L97.919 - NON-PRS CHRONIC ULC UNSP PRT OF R LOW LEG W UNSP SEVERITY; L97.929 - NON-PRS CHRONIC ULC UNSP PRT OF L LOW LEG W UNSP SEVERITY (6) Sepsis Code(s): A41.9 - SEPSIS, UNSPECIFIED ORGANISM Qualifiers: Sepsis type: sepsis due to unspecified organism Sepsis acute organ dysfunction status: unspecified Qualified Code(s): A41.9 - Sepsis, unspecified organism (7) Abdominal lymphadenopathy Code(s): R59.0 - LOCALIZED ENLARGED LYMPH NODES (8) Afib Code(s): I48.91 - UNSPECIFIED ATRIAL FIBRILLATION Qualifiers: Atrial fibrillation type: paroxysmal Qualified Code(s): I48.0 - Paroxysmal atrial fibrillation (9) DM2 (diabetes mellitus, type 2) Code(s): E11.9 - TYPE 2 DIABETES MELLITUS WITHOUT COMPLICATIONS Qualifiers: Diabetes mellitus land survey technician insulin use: with land survey technician use Diabetes mellitus complication detail: with other circulatory complications (10) Morbid obesity Code(s): E66.01 - MORBID (SEVERE) OBESITY DUE TO EXCESS CALORIES (11) Sleep apnea Code(s): G47.30 - SLEEP APNEA, UNSPECIFIED Qualifiers: Sleep apnea type: idiopathic sleep related nonobstructive alveolar hypoventilation Qualified Code(s): G47.34 - Idiopathic sleep related nonobstructive alveolar hypoventilation (12) Toxic metabolic encephalopathy Code(s): G92 - TOXIC ENCEPHALOPATHY Assessment/Plan IV ABX PER ID CHECKING CULTURES INTUBATED VENT SUPPORT RESP FAILURE/SEPTIC SHOCK WOUND CARE CHRONIC LOWER EXTREMITY ULCERS ADVANCED DIRECTIVES D/W HER BROTHER FULL CODE STATUS TRY TO WEAN OFF VENT POSSIBLE/DECREASE SEDATION CHECK MENTAL STATUS OFF SEDATION DVT PROPHYLAXIS DM CONTROL BGM NGT WITH GLUCERNA FEEDS IVF
--- NOTE | 2019-02-12 11:37 | PN ---
Progress Note, Physician History of Present Illness: continues to be intubated sedation turned off now will see what the mental status shows - Current Medication List Current Medications: Active Medications Acetaminophen (Ofirmev Injection -) 1,000 mg IVPB Q6H PRN PRN Reason: FEVER Last Admin: 02/09/19 23:17 Dose: 1,000 mg Budesonide/Formoterol Fumarate (Symbicort 80/4.5mcg -) 2 puff IH BID [facility] Last Admin: 02/12/19 09:30 Dose: Not Given Chlorhexidine Gluconate (Hibiclens For Decolonization -) 1 applic TP HS [facility] Last Admin: 02/11/19 21:09 Dose: 1 applic Chlorhexidine Gluconate (Peridex -) 15 ml MM BID [facility] Last Admin: 02/12/19 09:31 Dose: 15 ml Gabapentin (Neurontin -) 300 mg PO DAILY [facility] Last Admin: 02/12/19 09:30 Dose: Not Given Heparin Sodium (Porcine) (Heparin -) 1,000 unit IVPUSH PRN PRN PRN Reason: Heparin Heparin Sodium (Porcine) (Heparin -) 5,000 unit IVPUSH PRN PRN PRN Reason: Heparin Last Admin: 02/12/19 01:58 Dose: 5,000 unit Norepinephrine Bitartrate 8, (000 mcg/ Dextrose) 500 mls @ 18.75 mls/hr IV TITR [facility]; Protocol Last Titration: 02/12/19 01:00 Dose: 3 mcg/min, 11.25 mls/hr Vasopressin 50 units/ Sodium (Chloride) 100 mls @ 4 mls/hr IVPB ASDIR [facility]; Protocol Last Admin: 02/11/19 13:38 Dose: Not Given Meropenem 500 mg/ Dextrose 100 mls @ 200 mls/hr IVPB Q12H [facility] Last Admin: 02/12/19 09:29 Dose: 200 mls/hr Propofol (Diprivan -) 1,000,000 mcg in 100 mls @ 3.765 mls/hr IVPB TITR [facility]; Protocol Last Titration: 02/12/19 04:40 Dose: 50 mcg/kg/min, 37.65 mls/hr Midazolam HCl 100 mg/ Sodium (Chloride) 100 mls @ 1 mls/hr IVPB TITR [facility]; Protocol Last Admin: 02/12/19 01:40 Dose: Not Given Heparin Sodium (Porcine) 25, (000 unit/ Sodium Chloride) 500 mls @ 20 mls/hr IV TITR [facility]; Protocol Last Titration: 02/12/19 07:37 Dose: 1,600 unit/hr, 32 mls/hr Insulin Aspart (Novolog Vial Sliding Scale -) 1 vial SQ ACHS [facility]; Protocol Last Admin: 02/12/19 06:35 Dose: 2 units Metoprolol Tartrate (Lopressor Injection -) 5 mg IVPUSH Q4H PRN PRN Reason: TACHYCARDIA Midazolam HCl (Versed -) 2 mg IVPUSH Q8H PRN PRN Reason: AGITATION Last Admin: 02/12/19 00:59 Dose: 2 mg Mupirocin (Bactroban Ointment (For Decolonization) -) 1 applic NS BID [facility] Stop: 02/13/19 09:59 Last Admin: 02/12/19 09:31 Dose: 1 applic Nystatin (Mycostatin Cream -) 1 applic TP Q6HPO [facility] Last Admin: 02/12/19 06:30 Dose: 1 applic Pantoprazole Sodium (Protonix Iv) 40 mg IVPUSH DAILY [facility] Last Admin: 02/12/19 09:30 Dose: 40 mg - Objective Vital Signs: Vital Signs Temperature 98.6 F 02/12/19 10:00 Pulse Rate 102 H 02/12/19 10:00 Respiratory Rate 22 H 02/12/19 10:00 Blood Pressure 102/70 02/12/19 10:00 O2 Sat by Pulse Oximetry (%) 100 02/12/19 09:00 Constitutional: Yes: Other Cardiovascular: Yes: Regular Rate and Rhythm, Tachycardia Respiratory: Yes: Intubated, Mechanically Ventilated Gastrointestinal: Yes: Normal Bowel Sounds, Soft Musculoskeletal: Yes: WNL Extremities: Yes: Other Wound/Incision: Yes: Dressing Dry and Intact Labs: CBC, BMP 02/12/19 05:25 02/12/19 07:55 INR, PTT INR 1.71 (0.83-1.09) H 02/09/19 05:00 Fibrinogen 474.0 mg/dL (238-498) 02/11/19 08:58 - ....Imaging Chest X-ray: Report Reviewed, Image Reviewed Assessment/Plan Problem List - Problems (1) Bilateral leg ulcer Code(s): L97.919 - NON-PRS CHRONIC ULC UNSP PRT OF R LOW LEG W UNSP SEVERITY; L97.929 - NON-PRS CHRONIC ULC UNSP PRT OF L LOW LEG W UNSP SEVERITY (2) Sepsis Code(s): A41.9 - SEPSIS, UNSPECIFIED ORGANISM Qualifiers: Sepsis type: sepsis due to unspecified organism Sepsis acute organ dysfunction status: unspecified Qualified Code(s): A41.9 - Sepsis, unspecified organism (3) ARF (acute renal failure) Code(s): N17.9 - ACUTE KIDNEY FAILURE, UNSPECIFIED (4) Afib Code(s): I48.91 - UNSPECIFIED ATRIAL FIBRILLATION Qualifiers: Atrial fibrillation type: paroxysmal Qualified Code(s): I48.0 - Paroxysmal atrial fibrillation (5) Altered mental status Code(s): R41.82 - ALTERED MENTAL STATUS, UNSPECIFIED (6) Cellulitis Code(s): L03.90 - CELLULITIS, UNSPECIFIED Qualifiers: Site of cellulitis: unspecified site Qualified Code(s): L03.90 - Cellulitis , unspecified (7) DM2 (diabetes mellitus, type 2) Code(s): E11.9 - TYPE 2 DIABETES MELLITUS WITHOUT COMPLICATIONS Qualifiers: Diabetes mellitus terminal operations supervisor insulin use: with terminal operations supervisor use Diabetes mellitus complication detail: with other circulatory complications (8) Encephalopathy due to metabolic factor or toxin Code(s): [id number] - (9) HTN (hypertension) Code(s): I10 - ESSENTIAL (PRIMARY) HYPERTENSION (10) Hyperkalemia Code(s): E87.5 - HYPERKALEMIA (11) Lactic acidosis Code(s): E87.2 - ACIDOSIS (12) Leukocytosis Code(s): D72.829 - ELEVATED WHITE BLOOD CELL COUNT, UNSPECIFIED (13) Metabolic acidosis Code(s): E87.2 - ACIDOSIS (14) Morbid obesity Code(s): E66.01 - MORBID (SEVERE) OBESITY DUE TO EXCESS CALORIES (15) Severe sepsis Code(s): A41.9 - SEPSIS, UNSPECIFIED ORGANISM; R65.20 - SEVERE SEPSIS WITHOUT SEPTIC SHOCK (16) Venous stasis Code(s): I87.8 - OTHER SPECIFIED DISORDERS OF VEINS Assessment/Plan 53 y.o. female with PMH of chronic b/l LE ulcers, cellulitis, T2 DM, HTN, HLD, CKD, Anemia, GERD, obesity, AFIB, Asthma, and bipolar disorder brought to the ER by her brother for lethargy/AMS for the last several days noted to be in ARF , with leukocytosis, and b/l LE ulcers with malodorous drainage/erythema/ warmth. Currently receiving HD and hypotensive on Vasopressors Shock possibly from Sepsis-- on vasopressors AMS/Toxic metabolic encephalopathy/Uremia Infected b/l LE ulcers/cellulitis ARF on CKD - emergent HD started Hyperkalemia Acidosis Uremia Leukocytosis Lactic acidosis AFIB DM Morbid Obesity Asthma Bipolar d.o. HTN HLD continue abx will check vanco level will decide on the level rest as per the team cc time: 40 min
[2019-02-12] MEDS: KCL 10 MEQ IVPB 10 MEQ/100 ML INFUS.BAG IVPB SCH ×6 (12:31→20:18)
[2019-02-12] MEDS: HEPARIN - 25,000 UNIT in SODIUM CHLORIDE 495 ML IV SCH (12:32)
--- NOTE | 2019-02-12 13:19 | PN ---
Teaching Attending Note Name of Resident: Sy Elder ATTENDING PHYSICIAN STATEMENT I saw and evaluated the patient. I reviewed the resident's note and discussed the case with the resident. I agree with the resident's findings and plan as documented. SUBJECTIVE: Pt seen and examined in the ICU. Remains intubated, sedated. Not tolerating CPAP /PS. Good urine output. OBJECTIVE: Vital Signs Period Temp Pulse Resp BP Sys/Callahan Pulse Ox Last 24 Hr 98.3 F-99.2 F 85-125 18-27 81-145/49-107 99-100 Intake & Output 02/09/19 02/10/19 02/11/19 02/12/19 23:59 23:59 23:59 23:59 Intake Total 4651.8 2265 2466 997 Output Total 2550 2350 1950 Balance 2101.8 -85 516 997 Weight 134.445 kg 134.263 kg 134.309 kg 134.037 kg Gen: intubated, sedated Heart: RRR Lung: decreased breath sounds at the bases Abd: soft, nontender Ext: + edema, erythema CBC, BMP 02/12/19 05:25 02/12/19 07:55 Active Medications Acetaminophen (Ofirmev Injection -) 1,000 mg IVPB Q6H PRN PRN Reason: FEVER Last Admin: 02/09/19 23:17 Dose: 1,000 mg Budesonide/Formoterol Fumarate (Symbicort 80/4.5mcg -) 2 puff IH BID [facility] Last Admin: 02/12/19 09:30 Dose: Not Given Chlorhexidine Gluconate (Hibiclens For Decolonization -) 1 applic TP HS [facility] Last Admin: 02/11/19 21:09 Dose: 1 applic Chlorhexidine Gluconate (Peridex -) 15 ml MM BID [facility] Last Admin: 02/12/19 09:31 Dose: 15 ml Gabapentin (Neurontin -) 300 mg PO DAILY [facility] Last Admin: 02/12/19 09:30 Dose: Not Given Heparin Sodium (Porcine) (Heparin -) 1,000 unit IVPUSH PRN PRN PRN Reason: Heparin Heparin Sodium (Porcine) (Heparin -) 5,000 unit IVPUSH PRN PRN PRN Reason: Heparin Last Admin: 02/12/19 01:58 Dose: 5,000 unit Norepinephrine Bitartrate 8, (000 mcg/ Dextrose) 500 mls @ 18.75 mls/hr IV TITR [facility]; Protocol Last Titration: 02/12/19 01:00 Dose: 3 mcg/min, 11.25 mls/hr Vasopressin 50 units/ Sodium (Chloride) 100 mls @ 4 mls/hr IVPB ASDIR [facility]; Protocol Last Admin: 02/11/19 13:38 Dose: Not Given Meropenem 500 mg/ Dextrose 100 mls @ 200 mls/hr IVPB Q12H [facility] Last Admin: 02/12/19 09:29 Dose: 200 mls/hr Propofol (Diprivan -) 1,000,000 mcg in 100 mls @ 3.765 mls/hr IVPB TITR [facility]; Protocol Last Titration: 02/12/19 04:40 Dose: 50 mcg/kg/min, 37.65 mls/hr Midazolam HCl 100 mg/ Sodium (Chloride) 100 mls @ 1 mls/hr IVPB TITR [facility]; Protocol Last Admin: 02/12/19 01:40 Dose: Not Given Heparin Sodium (Porcine) 25, (000 unit/ Sodium Chloride) 500 mls @ 20 mls/hr IV TITR [facility]; Protocol Last Admin: 02/12/19 12:32 Dose: 1,600 unit/hr, 32 mls/hr Potassium Chloride (Potassium Chloride 10 Meq Premix Ivpb -) 10 meq in 100 mls @ 100 mls/hr IVPB Q60M [facility] Stop: 02/12/19 14:44 Last Admin: 02/12/19 12:31 Dose: 100 mls/hr Insulin Aspart (Novolog Vial Sliding Scale -) 1 vial SQ ACHS [facility]; Protocol Last Admin: 02/12/19 12:31 Dose: 2 units Metoprolol Tartrate (Lopressor Injection -) 5 mg IVPUSH Q4H PRN PRN Reason: TACHYCARDIA Midazolam HCl (Versed -) 2 mg IVPUSH Q8H PRN PRN Reason: AGITATION Last Admin: 02/12/19 00:59 Dose: 2 mg Mupirocin (Bactroban Ointment (For Decolonization) -) 1 applic NS BID [facility] Stop: 02/13/19 09:59 Last Admin: 02/12/19 09:31 Dose: 1 applic Nystatin (Mycostatin Cream -) 1 applic TP Q6HPO [facility] Last Admin: 02/12/19 12:32 Dose: 1 applic Pantoprazole Sodium (Protonix Iv) 40 mg IVPUSH DAILY [facility] Last Admin: 02/12/19 09:30 Dose: 40 mg ASSESSMENT AND PLAN: Acute Respiratory Failure Cellulitis/Infected Leg Ulcers Septic Shock Acute Kidney Injury requiring emergent HD Hyperkalemia improved Lactic Acidosis Atrial Fibrillation HTN DM Hyperlipidemia Anemia - continue antibiotics - wound care - monitor urine output, creatinine - free water replacement - replete lytes - titrate pressors to maintain MAP >65 - rate control - continue anticoagulation - daily sedation vacations to assess mental status - spontaneous breathing trials as tolerated when mental status improved - start enteral feeds - DVT/GI prophylaxis critical care time spent in reviewing chart, evaluating patient and formulating plan 35 min
[2019-02-12 14:58] LABS: MAGNESIUM 1.5 mg/dL (1.8-2.4); PHOSPHOROUS 2.2 mg/dL (2.5-4.9)
--- NOTE | 2019-02-12 15:15 | PN ---
Progress Note, Physician History of Present Illness: Pt seen and examined at bedside. She remains intubated. She is making urine. - Current Medication List Current Medications: Active Medications Acetaminophen (Ofirmev Injection -) 1,000 mg IVPB Q6H PRN PRN Reason: FEVER Last Admin: 02/09/19 23:17 Dose: 1,000 mg Budesonide/Formoterol Fumarate (Symbicort 80/4.5mcg -) 2 puff IH BID [facility] Last Admin: 02/12/19 09:30 Dose: Not Given Chlorhexidine Gluconate (Hibiclens For Decolonization -) 1 applic TP HS [facility] Last Admin: 02/11/19 21:09 Dose: 1 applic Chlorhexidine Gluconate (Peridex -) 15 ml MM BID [facility] Last Admin: 02/12/19 09:31 Dose: 15 ml Gabapentin (Neurontin -) 300 mg PO DAILY [facility] Last Admin: 02/12/19 09:30 Dose: Not Given Heparin Sodium (Porcine) (Heparin -) 1,000 unit IVPUSH PRN PRN PRN Reason: Heparin Heparin Sodium (Porcine) (Heparin -) 5,000 unit IVPUSH PRN PRN PRN Reason: Heparin Last Admin: 02/12/19 01:58 Dose: 5,000 unit Norepinephrine Bitartrate 8, (000 mcg/ Dextrose) 500 mls @ 18.75 mls/hr IV TITR [facility]; Protocol Last Titration: 02/12/19 01:00 Dose: 3 mcg/min, 11.25 mls/hr Vasopressin 50 units/ Sodium (Chloride) 100 mls @ 4 mls/hr IVPB ASDIR [facility]; Protocol Last Admin: 02/11/19 13:38 Dose: Not Given Meropenem 500 mg/ Dextrose 100 mls @ 200 mls/hr IVPB Q12H [facility] Last Admin: 02/12/19 09:29 Dose: 200 mls/hr Propofol (Diprivan -) 1,000,000 mcg in 100 mls @ 3.765 mls/hr IVPB TITR [facility]; Protocol Last Titration: 02/12/19 04:40 Dose: 50 mcg/kg/min, 37.65 mls/hr Midazolam HCl 100 mg/ Sodium (Chloride) 100 mls @ 1 mls/hr IVPB TITR [facility]; Protocol Last Admin: 02/12/19 01:40 Dose: Not Given Heparin Sodium (Porcine) 25, (000 unit/ Sodium Chloride) 500 mls @ 20 mls/hr IV TITR [facility]; Protocol Last Admin: 02/12/19 12:32 Dose: 1,600 unit/hr, 32 mls/hr Insulin Aspart (Novolog Vial Sliding Scale -) 1 vial SQ ACHS [facility]; Protocol Last Admin: 02/12/19 12:31 Dose: 2 units Metoprolol Tartrate (Lopressor Injection -) 5 mg IVPUSH Q4H PRN PRN Reason: TACHYCARDIA Midazolam HCl (Versed -) 2 mg IVPUSH Q8H PRN PRN Reason: AGITATION Last Admin: 02/12/19 00:59 Dose: 2 mg Mupirocin (Bactroban Ointment (For Decolonization) -) 1 applic NS BID [facility] Stop: 02/13/19 09:59 Last Admin: 02/12/19 09:31 Dose: 1 applic Nystatin (Mycostatin Cream -) 1 applic TP Q6HPO [facility] Last Admin: 02/12/19 12:32 Dose: 1 applic Pantoprazole Sodium (Protonix Iv) 40 mg IVPUSH DAILY [facility] Last Admin: 02/12/19 09:30 Dose: 40 mg - Objective Vital Signs: Vital Signs Temperature 98.6 F 02/12/19 10:00 Pulse Rate 109 H 02/12/19 12:00 Respiratory Rate 24 H 02/12/19 12:12 Blood Pressure 130/85 02/12/19 12:00 O2 Sat by Pulse Oximetry (%) 100 02/12/19 09:00 Constitutional: Yes: Calm Eyes: Yes: Conjunctiva Clear HENT: Yes: Atraumatic Neck: Yes: Supple Cardiovascular: Yes: S1, S2 Respiratory: Yes: On Venti-Mask Gastrointestinal: Yes: Soft Genitourinary: Yes: Johnson Present Musculoskeletal: Yes: Muscle Weakness Edema: Yes Integumentary: Yes: Erythema Neurological: Yes: Lethargy Labs: CBC, BMP 02/12/19 05:25 02/12/19 07:55 INR, PTT INR 1.71 (0.83-1.09) H 02/09/19 05:00 Fibrinogen 474.0 mg/dL (238-498) 02/11/19 08:58 Problem List - Problems (1) NOVA (acute kidney injury) Code(s): N17.9 - ACUTE KIDNEY FAILURE, UNSPECIFIED (2) Acute metabolic encephalopathy Code(s): G93.41 - METABOLIC ENCEPHALOPATHY (3) Sepsis Code(s): A41.9 - SEPSIS, UNSPECIFIED ORGANISM Qualifiers: Sepsis type: sepsis due to unspecified organism Sepsis acute organ dysfunction status: unspecified Qualified Code(s): A41.9 - Sepsis, unspecified organism (4) ARF (acute renal failure) Code(s): N17.9 - ACUTE KIDNEY FAILURE, UNSPECIFIED Assessment/Plan Current Medications Generic Name Dose Route Start Last Admin Trade Name Freq PRN Reason Stop Dose Admin Acetaminophen 1,000 mg 02/09/19 21:35 02/09/19 23:17 Ofirmev Injection - IVPB 1,000 mg Q6H PRN Administration FEVER Budesonide/Formoterol Fumarate 2 puff 02/08/19 10:00 02/12/19 09:30 Symbicort 80/4.5mcg - IH Not Given BID [facility] Chlorhexidine Gluconate 1 applic 02/08/19 22:00 02/11/19 21:09 Hibiclens For Decolonization - TP 1 applic HS [facility] Administration Chlorhexidine Gluconate 15 ml 02/11/19 12:15 02/12/19 09:31 Peridex - MM 15 ml BID [facility] Administration Gabapentin 300 mg 02/08/19 10:00 02/12/19 09:30 Neurontin - PO Not Given DAILY [facility] Heparin Sodium (Porcine) 1,000 unit 02/10/19 12:02 Heparin - IVPUSH PRN PRN Heparin Heparin Sodium (Porcine) 5,000 unit 02/10/19 12:02 02/12/19 01:58 Heparin - IVPUSH 5,000 unit PRN PRN Administration Heparin Norepinephrine Bitartrate 8, 500 mls @ 18.75 mls/hr 02/08/19 13:00 02/12/19 01:00 000 mcg/ Dextrose IV 3 mcg/min TITR [facility] 11.25 mls/hr Titration Protocol 5 MCG/MIN Vasopressin 50 units/ Sodium 100 mls @ 4 mls/hr 02/08/19 13:30 02/11/19 13:38 Chloride IVPB Not Given ASDIR [facility] Protocol 2 UNITS/HR Meropenem 500 mg/ Dextrose 100 mls @ 200 mls/hr 02/08/19 22:00 09/19/19 09:29 IVPB 200 mls/hr Q12H [facility] Administration Propofol 1,000,000 mcg in 100 mls @ 3.765 mls/hr 02/08/19 22:00 02/12/19 04: 40 Diprivan - IVPB 50 mcg/kg/min TITR [facility] 37.65 mls/hr Titration Protocol 5 MCG/KG/MIN Midazolam HCl 100 mg/ Sodium 100 mls @ 1 mls/hr 02/09/19 00:15 02/12/19 01:40 Chloride IVPB Not Given TITR [facility] Protocol 1 MG/HR Heparin Sodium (Porcine) 25, 500 mls @ 20 mls/hr 02/10/19 12:30 02/12/19 12: 32 000 unit/ Sodium Chloride IV 1,600 unit/hr TITR [facility] 32 mls/hr Administration Protocol 1,000 UNIT/HR Insulin Aspart 1 vial 02/08/19 11:00 02/12/19 12:31 Novolog Vial Sliding Scale - SQ 2 units ACHS [facility] Administration Protocol Metoprolol Tartrate 5 mg 02/11/19 22:22 Lopressor Injection - IVPUSH Q4H PRN TACHYCARDIA Midazolam HCl 2 mg 02/12/19 00:50 02/12/19 00:59 Versed - IVPUSH 2 mg Q8H PRN Administration AGITATION Mupirocin 1 applic 02/08/19 10:00 02/12/19 09:31 Bactroban Ointment (For Decolonization) - NS 02/13/19 09:59 1 applic BID [facility] Administration Nystatin 1 applic 02/08/19 12:00 02/12/19 12:32 Mycostatin Cream - TP 1 applic Q6HPO [facility] Administration Pantoprazole Sodium 40 mg 02/09/19 16:45 02/12/19 09:30 Protonix Iv IVPUSH 40 mg DAILY [facility] Administration Impression 1. NOVA 2. hyperkalemia 3. obesity 4. DM 5. a-fib 6. HTN 7. chronic lower extremity ulcers 8. gastritis 9. sepsis 10. hyperglycemia 11. metabolic acidosis 12. acute resp failure Plan - replace potassium - pts renal function is recovering - monitor urine output and record volume - vent support - wound care to lower ext
--- NOTE | 2019-02-12 15:18 | CON.CARD ---
Consult Consult Specialty:: Cardiology Reason for Consultation:: Sepsis - History of Present Illness History of Present Illness: 53 year old female chronic atrial fibrillation on eliquis, hypertension, diabetes mellitus, hyperlipidemia, chronic kidney disease, chronic bilateral leg ulcers initially came to the hospital for altered mental status. She was noted to have malodorous dressings on her legs. She was in acute renal failure with a BUN/Cre of 179/11 and septic shock 2/2 infected lower extremity wound ulcers. She is currently in the ICU intubated, sedated, and on vasopressors. She received emergent hemodialysis in the ICU. Echocardiogram 10/2018 normal EF no valvular disease PASP moderately elevated. On telemetry she has Afib with HR 70-120s. - History Source History Provided By: Medical Record - Past Medical History Cardio/Vascular: Yes: AFIB, HTN Pulmonary: Yes: Asthma Gastrointestinal: Yes: Other (gallstones) Hepatobiliary: Yes: Cholelithiasis (passed without surgery), Other (fatty liver) Renal/: Yes: Renal Inusuff Infectious Disease: Yes: Other (LE cellulitis) Psych: Yes: Bipolar Endocrine: Yes: Diabetes Mellitus Dermatology: Yes: Cellulitis (b/l LE with ulcerations) Additional Medical History: obesity - Alcohol/Substance Use Hx Alcohol Use: No History of Substance Use: reports: Prescription (narcotics) - Smoking History Smoking history: Former smoker Have you smoked in the past 12 months: No Aproximately how many cigarettes per day: 0 If you are a former smoker, when did you quit?: quit age 13 - Social History Usual Living Arrangement: Alone ADL: Independent 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 History of Recent Travel: No Home Medications - Allergies Allergies/Adverse Reactions: Allergies Allergy/AdvReac Type Severity Reaction Status Date / Time nut - unspecified Allergy Verified 02/08/19 09:45 Penicillins Allergy Verified 02/08/19 09:45 walnut Allergy Verified 02/08/19 09:45 - Home Medications Home Medications: Ambulatory Orders Budesonide/Formeterol Fumarate [SYMBICORT 80/4.5mcg -] 2 puff IH BID inhaler Insulin Sliding Scale [Novolog Vial Sliding Scale -] 1 vial SQ ACHS units 02/20 Pantoprazole Sodium [Protonix -] 40 mg PO DAILY tablet.ec 07/04/17 Gabapentin 300 mg PO DAILY 07/15/18 Insulin Glargine,Hum.rec.anlog [Toujuan Max Solostar] 300 unit SQ BID #15 insuln.pen 07/22/18 Metoprolol Tartrate [Lopressor -] 25 mg PO DAILY #30 tablet 07/22/18 Polyethylene Glycol 3350 [Miralax 119 gm Btl -] 17 gm PO DAILY bottle 07/22/18 Apixaban [Eliquis -] 5 mg PO BID #60 tablet 11/22/18 Bacitracin - [Bacitracin Topical Ointment -] 1 applic TP BID tube 11/22/18 Clindamycin HCl 300 mg PO TID #15 capsule 11/22/18 Insulin (Levemir) [Levemir Vial] 25 units SQ BID units 11/22/18 Magnesium Oxide [Mag-Ox -] 400 mg PO BID tablet 11/22/18 Nystatin Cream [Mycostatin Cream -] 1 applic TP Q6HPO applic 11/22/18 Pantoprazole Sodium [Protonix -] 40 mg PO DAILY #30 tablet.ec 11/22/18 Family Medical History Family History: Unable to Obtain Review of Systems Unable to obtain ROS, reason: Intubated Vital Signs: Vital Signs Temperature 98.6 F 02/12/19 10:00 Pulse Rate 109 H 02/12/19 12:00 Respiratory Rate 24 H 02/12/19 12:12 Blood Pressure 130/85 02/12/19 12:00 O2 Sat by Pulse Oximetry (%) 100 02/12/19 09:00 Constitutional: Yes: Well Nourished, No Distress Eyes: Yes: Conjunctiva Clear, EOM Intact HENT: Yes: Atraumatic, Normocephalic Neck: Yes: Supple, Trachea Midline Respiratory: Yes: Regular, CTA Bilaterally Gastrointestinal: Yes: Normal Bowel Sounds Heart Sounds: Yes: S1, S2 Murmur: No: Systolic Murmur, Diastolic Murmur Edema: Yes Edema: LLE: 1+, RLE: 1+ - Other Data Labs, Other Data: CBC, BMP 02/12/19 05:25 02/12/19 07:55 INR, PTT INR 1.71 (0.83-1.09) H 02/09/19 05:00 Fibrinogen 474.0 mg/dL (238-498) 02/11/19 08:58 Afib low voltage no ST T changes. Assessment/Plan 1. Chronic Afib. 2. Pulmonary HTN 3.Morbid obesity 4. Chronic Lext ulcer and admitted with sepsis and cellulitis. 5. Acute renal failure now improved. 1. Afib with mildly elevated HR 120s. Off Metoprolol due to hypotension and pressor requirement. If HR becomes severely elevated >150bpm will place on Amiodarone drip to control rapid rates. 2. Continue heparin AC. 3. Abx 4. correct electrolyte abnormalities.
[2019-02-12] MEDS ORDERED: POTASSIUM CHLORIDE TABS 20 MEQ TABLET.ER (FP) PO ONE (17:15)
--- NOTE | 2019-02-12 17:16 | PN ---
Physical Exam: SUBJECTIVE: OBJECTIVE: Vital Signs Period Temp Pulse Resp BP Sys/Callahan Pulse Ox Last 24 Hr 98.3 F-99.4 F 85-124 18-27 81-145/55-107 99-100 Laboratory Results - last 24 hr 02/11/19 02/11/19 02/11/19 09:00 15:00 21:37 WBC RBC Hgb Hct MCV MCH MCHC RDW Plt Count MPV Haptoglobin 231 H PTT (Actin FS) Sodium 142 Potassium 3.3 L Chloride 106 Carbon Dioxide 29 Anion Gap 7 L BUN 37.9 H Creatinine 1.3 Est GFR (CKD-EPI)AfAm 53.48 Est GFR (CKD-EPI)NonAf 46.15 POC Glucometer 138 Random Glucose 147 H Calcium 8.9 Phosphorus Magnesium Total Bilirubin AST ALT Alkaline Phosphatase Total Protein Albumin 02/12/19 02/12/19 02/12/19 01:00 05:25 05:25 WBC 9.2 RBC 3.09 L Hgb 9.0 L Hct 26.7 L MCV 86.2 MCH 29.3 MCHC 33.9 RDW 15.8 H Plt Count 216 MPV 9.3 Haptoglobin PTT (Actin FS) 29.6 58.4 H Sodium Potassium Chloride Carbon Dioxide Anion Gap BUN Creatinine Est GFR (CKD-EPI)AfAm Est GFR (CKD-EPI)NonAf POC Glucometer Random Glucose Calcium Phosphorus Magnesium Total Bilirubin AST ALT Alkaline Phosphatase Total Protein Albumin 02/12/19 02/12/19 02/12/19 06:34 07:55 12:12 WBC RBC Hgb Hct MCV MCH MCHC RDW Plt Count MPV Haptoglobin PTT (Actin FS) Sodium 149 H Potassium 2.8 L* Chloride 114 H Carbon Dioxide 29 Anion Gap 5 L BUN 32.3 H Creatinine 1.0 Est GFR (CKD-EPI)AfAm 73.45 Est GFR (CKD-EPI)NonAf 63.37 POC Glucometer 137 148 Random Glucose 122 H Calcium 8.0 L Phosphorus 2.2 L Magnesium 1.5 L Total Bilirubin 0.4 AST 8 L ALT 14 Alkaline Phosphatase 80 Total Protein 4.6 L Albumin 1.8 L 02/12/19 16:02 WBC RBC Hgb Hct MCV MCH MCHC RDW Plt Count MPV Haptoglobin PTT (Actin FS) Sodium Potassium Chloride Carbon Dioxide Anion Gap BUN Creatinine Est GFR (CKD-EPI)AfAm Est GFR (CKD-EPI)NonAf POC Glucometer 156 Random Glucose Calcium Phosphorus Magnesium Total Bilirubin AST ALT Alkaline Phosphatase Total Protein Albumin Active Medications Generic Name Dose Route Start Last Admin Trade Name Freq PRN Reason Stop Dose Admin Acetaminophen 1,000 mg 02/09/19 21:35 02/09/19 23:17 Ofirmev Injection - IVPB 1,000 mg Q6H PRN Administration FEVER Budesonide/Formoterol Fumarate 2 puff 02/08/19 10:00 02/12/19 09:30 Symbicort 80/4.5mcg - IH Not Given BID [facility] Chlorhexidine Gluconate 1 applic 02/08/19 22:00 02/11/19 21:09 Hibiclens For Decolonization - TP 1 applic HS [facility] Administration Chlorhexidine Gluconate 15 ml 02/11/19 12:15 02/12/19 09:31 Peridex - MM 15 ml BID [facility] Administration Gabapentin 300 mg 02/08/19 10:00 02/12/19 09:30 Neurontin - PO Not Given DAILY [facility] Heparin Sodium (Porcine) 1,000 unit 02/10/19 12:02 Heparin - IVPUSH PRN PRN Heparin Heparin Sodium (Porcine) 5,000 unit 02/10/19 12:02 02/12/19 01:58 Heparin - IVPUSH 5,000 unit PRN PRN Administration Heparin Norepinephrine Bitartrate 8, 500 mls @ 18.75 mls/hr 02/08/19 13:00 02/12/19 01:00 000 mcg/ Dextrose IV 3 mcg/min TITR [facility] 11.25 mls/hr Titration Protocol 5 MCG/MIN Vasopressin 50 units/ Sodium 100 mls @ 4 mls/hr 02/08/19 13:30 02/11/19 13:38 Chloride IVPB Not Given ASDIR [facility] Protocol 2 UNITS/HR Meropenem 500 mg/ Dextrose 100 mls @ 200 mls/hr 02/08/19 22:00 02/12/19 09:29 IVPB 200 mls/hr Q12H [facility] Administration Propofol 1,000,000 mcg in 100 mls @ 3.765 mls/hr 02/08/19 22:00 02/12/19 04: 40 Diprivan - IVPB 50 mcg/kg/min TITR [facility] 37.65 mls/hr Titration Protocol 5 MCG/KG/MIN Midazolam HCl 100 mg/ Sodium 100 mls @ 1 mls/hr 02/09/19 00:15 02/12/19 01:40 Chloride IVPB Not Given TITR [facility] Protocol 1 MG/HR Heparin Sodium (Porcine) 25, 500 mls @ 20 mls/hr 02/10/19 12:30 02/12/19 12: 32 000 unit/ Sodium Chloride IV 1,600 unit/hr TITR [facility] 32 mls/hr Administration Protocol 1,000 UNIT/HR Potassium Chloride 10 meq in 100 mls @ 100 mls/hr 02/12/19 15:15 Potassium Chloride 10 Meq Premix Ivpb - IVPB 02/12/19 18:14 Q60M [facility] Insulin Aspart 1 vial 02/08/19 11:00 02/12/19 12:31 Novolog Vial Sliding Scale - SQ 2 units ACHS [facility] Administration Protocol Metoprolol Tartrate 5 mg 02/11/19 22:22 Lopressor Injection - IVPUSH Q4H PRN TACHYCARDIA Midazolam HCl 2 mg 02/12/19 00:50 02/12/19 00:59 Versed - IVPUSH 2 mg Q8H PRN Administration AGITATION Mupirocin 1 applic 02/08/19 10:00 02/12/19 09:31 Bactroban Ointment (For Decolonization) - NS 02/13/19 09:59 1 applic BID [facility] Administration Nystatin 1 applic 02/08/19 12:00 02/12/19 12:32 Mycostatin Cream - TP 1 applic Q6HPO [facility] Administration Pantoprazole Sodium 40 mg 02/09/19 16:45 02/12/19 09:30 Protonix Iv IVPUSH 40 mg DAILY [facility] Administration ASSESSMENT/PLAN: S: pt seen/examined. overnight had low urine output otherwise quiet. intubated and sedated. Exam: GENERAL: sedated and intubated HEENT: NC/AT LUNGS: Mechanically ventilated. CTAB no wheezes rales rhonchi HEART: S1/S2,RRR,no mrg ABDOMEN: soft, globular, +BS PSYCH: sedated SKIN: b/l LE ulcers, no abscess formation at this time A/P: 53F PMH B/L LE chronic Venous stasis ulcerations, Chronic Afib on AC, HTN, poorly controlled T2DM, Dyslipedemia, Bipolar disorder, CKD (non-compliant with medications) BIB[facility]S to [facility] for altered mental status. ICU admission for emergent HD. Neuro - currently sedated with a RASS of -5. - sedated w/ propofol and versed - weaned off sedation, will monitor Respiratory - continue symbicort - intubated, maintain SaO2>90% RENAL: Acute Renal failure with emergent need for dialysis - Bun/Cr 38/1.4 > 32.3/1 - d/c trialysis RIJ once off pressors. - renal recs appreciated - replace potassium today with 20 IV bag and 2 bags of 10mEq. - decent urine output - continuing to monitor U.O./lytes and CVP to assess volume status. Pt CVP is 8 so good volume status at this time. CARDIO - EKG w/ a-fib w/ RVR/septic shock on pressors - d/c vasopressin - wean off levo, was at 1.5 - maintain MAP >65 - lopressor 25 BID, will push lopressor 5 in between if HR >120. - Tele monitoring - cardiology recs appreciated - amio gtt if hr >150s ID - Sepsis likely 2/2 LE Wound Ulcers/AMS/Toxic metabolic encephalopathy/Uremia - Infected b/l LE ulcers/cellulitis, no abscess seen on exam - Urine and Blood Cultures negative, wound culture LLE: N.L.F. gram negative bacilli, MRSA, group D strep or enterococcus, RLE: L.F. G- bacilli, N.L.F, group d strep or enterococcus. - ID recs appreciated; vanc pending levels - c/w meropenem FEN d/c fluids Monitor lytes Replete PRN OG tube placed, confirmed on CXR NPO PPx: DVT: FOBT + continue heparin gtt Hb today higher than yesterday, no signs of acute blood loss, will continue to monitor. GI: pantoprazole 40 IVP Visit type - Emergency Visit Emergency Visit: Yes ED Registration Date: 02/08/19 Care time: The patient presented to the Emergency Department on the above date and was hospitalized for further evaluation of their emergent condition. - New Patient This patient is new to me today: No - Critical Care Critical Care patient: Yes Total Critical Care Time (in minutes): 35 Critical Care Statement: The care of this patient involved high complexity decision making to prevent further life threatening deterioration of the patient 's condition and/or to evaluate & treat vital organ system(s) failure or risk of failure.
[2019-02-12] MEDS: ACETAMINOPHEN 1000 MG/100 ML VIAL (NON FORMULARY) IVPB PRN (18:31)
[2019-02-12] MEDS: NOREPINEPHRINE BITARTRATE 8,000 MCG in DEXTROSE 5%-WATER - 492 ML IV SCH (20:18)
[2019-02-12] MEDS: VASOPRESSIN 50 UNITS in SODIUM CHLORIDE 97.5 ML IVPB SCH (20:19)
[2019-02-12] MEDS: CHLORHEXIDINE GLUCONATE 4% CLEANSER FOR DECOLONIZATION TP SCH (21:40)
[2019-02-12] MEDS: METOPROLOL TARTRATE 5 MG/5 ML VIAL IVPUSH PRN (22:01)
[2019-02-13] MEDS: PROPOFOL 1,000,000 MCG/100 ML VIAL IVPB SCH ×3 (00:50→21:09)
[2019-02-13] MEDS: MIDAZOLAM 100 MG in SODIUM CHLORIDE 100 ML IVPB SCH (02:02)
[2019-02-13] MEDS: NYSTATIN 100,000 UNIT/GM TOPICAL CREAM 15 GM TUBE TP SCH ×4 (03:01→17:58)
[2019-02-13] MEDS: METOPROLOL TARTRATE 5 MG/5 ML VIAL IVPUSH PRN ×3 (03:21→15:57)
[2019-02-13 06:24] LABS: HEMATOCRIT 28.5 % (32.4-45.2); HEMOGLOBIN 9.4 GM/dL (10.7-15.3); MCH 28.7 pg (25.7-33.7); MEAN CELL VOLUME 86.8 fl (80-96); MEAN PLT VOLUME 9.2 fl (7.5-11.1); PLATELET COUNT 224 K/MM3 (134-434); RBC 3.28 M/mm3 (3.60-5.2); RDW 15.7 % (11.6-15.6)
[2019-02-13 06:47] LABS: ALBUMIN 2.1 g/dl (3.4-5.0); BILIRUBIN,TOTAL 0.4 mg/dL (0.2-1); BLOOD UREA NITROGEN 34.4 mg/dL (7-18); CALCIUM 8.7 mg/dL (8.5-10.1); CREATININE 1.2 mg/dL (0.55-1.3); MAGNESIUM 1.7 mg/dL (1.8-2.4); PHOSPHOROUS 2.2 mg/dL (2.5-4.9); TOT PROT 5.5 g/dl (6.4-8.2)
[2019-02-13] MEDS: INSULIN SLIDING SCALE (NOVOLOG) 1 VIAL SQ SCH ×4 (06:57→21:52)
[2019-02-13] MEDS: HEPARIN NA (PORCINE) 5,000 UNITS/ML 1ML VIAL IVPUSH PRN ×2 (07:26→16:02)
[2019-02-13] MEDS ORDERED: PT OWN MED DRAWER 7, Y5N ONE ×2 (09:17→18:08)
[2019-02-13] MEDS: PANTOPRAZOLE SODIUM 40 MG VIAL IVPUSH SCH (09:18)
[2019-02-13] MEDS: GABAPENTIN 300 MG CAPSULE (FP) PO SCH (09:18)
[2019-02-13] MEDS: CHLORHEXIDINE GLUCONATE 0.12% 15ML CUP MM SCH ×2 (09:18→21:11)
[2019-02-13] MEDS: MEROPENEM 500 MG in DEXTROSE 5%-WATER 100 ML IVPB SCH ×2 (09:21→21:11)
--- NOTE | 2019-02-13 10:11 | PN ---
Progress Note, Physician Chief Complaint: INTUBATED STILL SEDATED EVENTS AND NOTES REVIEWED NO DISTRESS - Current Medication List Current Medications: Active Medications Acetaminophen (Ofirmev Injection -) 1,000 mg IVPB Q6H PRN PRN Reason: FEVER Last Admin: 02/12/19 18:31 Dose: 1,000 mg Budesonide/Formoterol Fumarate (Symbicort 80/4.5mcg -) 2 puff IH BID [facility] Last Admin: 02/12/19 21:41 Dose: Not Given Chlorhexidine Gluconate (Hibiclens For Decolonization -) 1 applic TP HS [facility] Last Admin: 02/12/19 21:40 Dose: 1 applic Chlorhexidine Gluconate (Peridex -) 15 ml MM BID [facility] Last Admin: 02/13/19 09:18 Dose: 15 ml Gabapentin (Neurontin -) 300 mg PO DAILY [facility] Last Admin: 02/13/19 09:18 Dose: 300 mg Heparin Sodium (Porcine) (Heparin -) 1,000 unit IVPUSH PRN PRN PRN Reason: Heparin Last Admin: 02/13/19 07:26 Dose: 1,000 unit Heparin Sodium (Porcine) (Heparin -) 5,000 unit IVPUSH PRN PRN PRN Reason: Heparin Last Admin: 02/12/19 01:58 Dose: 5,000 unit Norepinephrine Bitartrate 8, (000 mcg/ Dextrose) 500 mls @ 18.75 mls/hr IV TITR [facility]; Protocol Last Admin: 02/12/19 20:18 Dose: Not Given Vasopressin 50 units/ Sodium (Chloride) 100 mls @ 4 mls/hr IVPB ASDIR [facility]; Protocol Last Admin: 02/12/19 20:19 Dose: Not Given Meropenem 500 mg/ Dextrose 100 mls @ 200 mls/hr IVPB Q12H [facility] Last Admin: 02/13/19 09:21 Dose: 200 mls/hr Propofol (Diprivan -) 1,000,000 mcg in 100 mls @ 3.765 mls/hr IVPB TITR [facility]; Protocol Last Admin: 02/13/19 02:30 Dose: 50 mcg/kg/min, 37.65 mls/hr Midazolam HCl 100 mg/ Sodium (Chloride) 100 mls @ 1 mls/hr IVPB TITR [facility]; Protocol Last Admin: 02/13/19 02:02 Dose: Not Given Heparin Sodium (Porcine) 25, (000 unit/ Sodium Chloride) 500 mls @ 20 mls/hr IV TITR [facility]; Protocol Last Titration: 02/13/19 07:26 Dose: 1,700 unit/hr, 34 mls/hr Insulin Aspart (Novolog Vial Sliding Scale -) 1 vial SQ ACHS [facility]; Protocol Last Admin: 02/13/19 06:57 Dose: 4 units Metoprolol Tartrate (Lopressor Injection -) 5 mg IVPUSH Q4H PRN PRN Reason: TACHYCARDIA Last Admin: 02/13/19 07:56 Dose: 5 mg Midazolam HCl (Versed -) 2 mg IVPUSH Q8H PRN PRN Reason: AGITATION Last Admin: 02/12/19 00:59 Dose: 2 mg Nystatin (Mycostatin Cream -) 1 applic TP Q6HPO [facility] Last Admin: 02/13/19 06:56 Dose: 1 applic Pantoprazole Sodium (Protonix Iv) 40 mg IVPUSH DAILY [facility] Last Admin: 02/13/19 09:18 Dose: 40 mg - Objective Vital Signs: Vital Signs Temperature 99.7 F H 02/13/19 08:31 Pulse Rate 104 H 02/13/19 09:00 Respiratory Rate 24 H 02/13/19 09:00 Blood Pressure 111/77 02/13/19 09:00 O2 Sat by Pulse Oximetry (%) 100 02/13/19 08:31 Constitutional: Yes: Other Cardiovascular: Yes: Regular Rate and Rhythm Respiratory: Yes: Diminished, Mechanically Ventilated Gastrointestinal: Yes: Soft, Abdomen, Obese Genitourinary: Yes: Johnson Present Extremities: Yes: Deformity Edema: Yes Integumentary: Yes: Pressure Ulcer, Venous Stasis Changes Wound/Incision: Yes: Excoriated, Unapproximated, Other Labs: CBC, BMP 02/13/19 05:00 02/13/19 05:00 INR, PTT INR 1.71 (0.83-1.09) H 02/09/19 05:00 Fibrinogen 474.0 mg/dL (238-498) 02/11/19 08:58 Problem List - Problems (1) Noncompliance Code(s): Z91.19 - PATIENT'S NONCOMPLIANCE W OTH MEDICAL TREATMENT AND REGIMEN (2) Uncontrolled diabetes mellitus Code(s): E11.65 - TYPE 2 DIABETES MELLITUS WITH HYPERGLYCEMIA (3) NOVA (acute kidney injury) Code(s): N17.9 - ACUTE KIDNEY FAILURE, UNSPECIFIED (4) Acute metabolic encephalopathy Code(s): G93.41 - METABOLIC ENCEPHALOPATHY (5) Bilateral leg ulcer Code(s): L97.919 - NON-PRS CHRONIC ULC UNSP PRT OF R LOW LEG W UNSP SEVERITY; L97.929 - NON-PRS CHRONIC ULC UNSP PRT OF L LOW LEG W UNSP SEVERITY (6) Sepsis Code(s): A41.9 - SEPSIS, UNSPECIFIED ORGANISM Qualifiers: Sepsis type: sepsis due to unspecified organism Sepsis acute organ dysfunction status: unspecified Qualified Code(s): A41.9 - Sepsis, unspecified organism (7) Abdominal lymphadenopathy Code(s): R59.0 - LOCALIZED ENLARGED LYMPH NODES (8) Afib Code(s): I48.91 - UNSPECIFIED ATRIAL FIBRILLATION Qualifiers: Atrial fibrillation type: paroxysmal Qualified Code(s): I48.0 - Paroxysmal atrial fibrillation (9) DM2 (diabetes mellitus, type 2) Code(s): E11.9 - TYPE 2 DIABETES MELLITUS WITHOUT COMPLICATIONS Qualifiers: Diabetes mellitus jail insulin use: with intermediate accountant use Diabetes mellitus complication detail: with other circulatory complications (10) Morbid obesity Code(s): E66.01 - MORBID (SEVERE) OBESITY DUE TO EXCESS CALORIES (11) Sleep apnea Code(s): G47.30 - SLEEP APNEA, UNSPECIFIED Qualifiers: Sleep apnea type: idiopathic sleep related nonobstructive alveolar hypoventilation Qualified Code(s): G47.34 - Idiopathic sleep related nonobstructive alveolar hypoventilation (12) Toxic metabolic encephalopathy Code(s): G92 - TOXIC ENCEPHALOPATHY Assessment/Plan IV ABX PER ID CHECKING CULTURES INTUBATED VENT SUPPORT RESP FAILURE/SEPTIC SHOCK WOUND CARE CHRONIC LOWER EXTREMITY ULCERS ADVANCED DIRECTIVES D/W HER BROTHER FULL CODE STATUS TRY TO WEAN OFF VENT POSSIBLE/DECREASE SEDATION CHECK MENTAL STATUS OFF SEDATION DVT PROPHYLAXIS DM CONTROL BGM NGT WITH GLUCERNA FEEDS IVF REPLETE ELCTROLYTES BP SUPPORT ON VASOPRESSIN TAPER OFF TOLERATED
[2019-02-13] MEDS: BUDESONIDE/FORMETEROL FUMARATE 80/4.5 mcg INHALER IH SCH ×2 (10:31→21:11)
--- NOTE | 2019-02-13 11:39 | PN ---
Teaching Attending Note Name of Resident: Hermes Lazcano ATTENDING PHYSICIAN STATEMENT I saw and evaluated the patient. I reviewed the resident's note and discussed the case with the resident. I agree with the resident's findings and plan as documented. SUBJECTIVE: Patient seen and examined in the ICU. Remains intubated and sedated on propofol (just stopped). Apparently was not tolerating CPAP/PS yesterday. No acute events overnight. No pressors. Intake & Output 02/10/19 02/11/19 02/12/19 02/13/19 23:59 23:59 23:59 23:59 Intake Total 2265 2466 2023 1080 Output Total 2350 1950 850 450 Balance -85 516 1173 630 Weight 296 lb 296 lb 1.6 oz 295 lb 8 oz 295 lb Last Vital Signs Temp Pulse Resp BP Pulse Ox 99.9 F H 107 H 24 H 119/77 100 02/13/19 10:00 02/13/19 10:00 02/13/19 10:00 02/13/19 10:00 02/13/19 08:31 Active Medications Acetaminophen (Ofirmev Injection -) 1,000 mg IVPB Q6H PRN PRN Reason: FEVER Last Admin: 02/12/19 18:31 Dose: 1,000 mg Budesonide/Formoterol Fumarate (Symbicort 80/4.5mcg -) 2 puff IH BID LANCE Last Admin: 02/13/19 10:31 Dose: Not Given Chlorhexidine Gluconate (Hibiclens For Decolonization -) 1 applic TP HS LANCE Last Admin: 02/12/19 21:40 Dose: 1 applic Chlorhexidine Gluconate (Peridex -) 15 ml MM BID [facility] Last Admin: 02/13/19 09:18 Dose: 15 ml Gabapentin (Neurontin -) 300 mg PO DAILY [facility] Last Admin: 02/13/19 09:18 Dose: 300 mg Heparin Sodium (Porcine) (Heparin -) 1,000 unit IVPUSH PRN PRN PRN Reason: Heparin Last Admin: 02/13/19 07:26 Dose: 1,000 unit Heparin Sodium (Porcine) (Heparin -) 5,000 unit IVPUSH PRN PRN PRN Reason: Heparin Last Admin: 02/12/19 01:58 Dose: 5,000 unit Norepinephrine Bitartrate 8, (000 mcg/ Dextrose) 500 mls @ 18.75 mls/hr IV TITR [facility]; Protocol Last Admin: 02/12/19 20:18 Dose: Not Given Vasopressin 50 units/ Sodium (Chloride) 100 mls @ 4 mls/hr IVPB [facility]IR [facility]; Protocol Last Admin: 02/12/19 20:19 Dose: Not Given Meropenem 500 mg/ Dextrose 100 mls @ 200 mls/hr IVPB Q12H [facility] Last Admin: 02/13/19 09:21 Dose: 200 mls/hr Propofol (Diprivan -) 1,000,000 mcg in 100 mls @ 3.765 mls/hr IVPB TITR [facility]; Protocol Last Admin: 02/13/19 02:30 Dose: 50 mcg/kg/min, 37.65 mls/hr Midazolam HCl 100 mg/ Sodium (Chloride) 100 mls @ 1 mls/hr IVPB TITR [facility]; Protocol Last Admin: 02/13/19 02:02 Dose: Not Given Heparin Sodium (Porcine) 25, (000 unit/ Sodium Chloride) 500 mls @ 20 mls/hr IV TITR [facility]; Protocol Last Titration: 02/13/19 07:26 Dose: 1,700 unit/hr, 34 mls/hr Insulin Aspart (Novolog Vial Sliding Scale -) 1 vial SQ ACHS [facility]; Protocol Last Admin: 02/13/19 10:57 Dose: Not Given Metoprolol Tartrate (Lopressor Injection -) 5 mg IVPUSH Q4H PRN PRN Reason: TACHYCARDIA Last Admin: 02/13/19 07:56 Dose: 5 mg Midazolam HCl (Versed -) 2 mg IVPUSH Q8H PRN PRN Reason: AGITATION Last Admin: 02/12/19 00:59 Dose: 2 mg Nystatin (Mycostatin Cream -) 1 applic TP Q6HPO [facility] Last Admin: 02/13/19 06:56 Dose: 1 applic Pantoprazole Sodium (Protonix Iv) 40 mg IVPUSH DAILY [facility] Last Admin: 02/13/19 09:18 Dose: 40 mg Gen: intubated, sedated Heart: RRR Lung: decreased breath sounds at the bases Abd: soft, nontender Ext: + edema, erythema, legs wrapped Laboratory Results - last 24 hr 02/12/19 02/12/19 02/12/19 07:55 12:12 16:02 WBC RBC Hgb Hct MCV MCH MCHC RDW Plt Count MPV PTT (Actin FS) Sodium 149 H Potassium 2.8 L* Chloride 114 H Carbon Dioxide 29 Anion Gap 5 L BUN 32.3 H Creatinine 1.0 Est GFR (CKD-EPI)AfAm 73.45 Est GFR (CKD-EPI)NonAf 63.37 POC Glucometer 148 156 Random Glucose 122 H Calcium 8.0 L Phosphorus 2.2 L Magnesium 1.5 L Total Bilirubin 0.4 AST 8 L ALT 14 Alkaline Phosphatase 80 Total Protein 4.6 L Albumin 1.8 L 02/12/19 02/13/19 02/13/19 21:54 05:00 05:00 WBC 8.0 RBC 3.28 L Hgb 9.4 L Hct 28.5 L MCV 86.8 MCH 28.7 MCHC 33.0 RDW 15.7 H Plt Count 224 MPV 9.2 PTT (Actin FS) 40.0 H Sodium Potassium Chloride Carbon Dioxide Anion Gap BUN Creatinine Est GFR (CKD-EPI)AfAm Est GFR (CKD-EPI)NonAf POC Glucometer 112 Random Glucose Calcium Phosphorus Magnesium Total Bilirubin AST ALT Alkaline Phosphatase Total Protein Albumin 02/13/19 02/13/19 02/13/19 05:00 06:54 10:48 WBC RBC Hgb Hct MCV MCH MCHC RDW Plt Count MPV PTT (Actin FS) Sodium 144 Potassium 4.0 Chloride 109 H Carbon Dioxide 29 Anion Gap 6 L BUN 34.4 H Creatinine 1.2 Est GFR (CKD-EPI)AfAm 58.92 Est GFR (CKD-EPI)NonAf 50.84 POC Glucometer 163 150 Random Glucose 150 H Calcium 8.7 Phosphorus 2.2 L Magnesium 1.7 L Total Bilirubin 0.4 AST 11 L ALT 14 Alkaline Phosphatase 101 Total Protein 5.5 L Albumin 2.1 L ASSESSMENT AND PLAN: Acute Respiratory Failure Cellulitis/Infected Leg Ulcers Septic Shock Acute Kidney Injury requiring emergent HD Hyperkalemia improved Lactic Acidosis Atrial Fibrillation HTN DM Hyperlipidemia Anemia - continue antibiotics - wound care - monitor urine output, creatinine - free water replacement - replete lytes - rate control - continue anticoagulation - Sedation vacations to assess mental status - spontaneous breathing trials as tolerated when mental status improved - DVT/GI prophylaxis Dr Andre Critical care time spent in reviewing chart, evaluating patient and formulating plan 35 min
--- NOTE | 2019-02-13 12:58 | PN ---
Progress Note, Physician History of Present Illness: continues to be intubated and sedated fever - Current Medication List Current Medications: Active Medications Acetaminophen (Ofirmev Injection -) 1,000 mg IVPB Q6H PRN PRN Reason: FEVER Last Admin: 02/12/19 18:31 Dose: 1,000 mg Budesonide/Formoterol Fumarate (Symbicort 80/4.5mcg -) 2 puff IH BID LANCE Last Admin: 02/13/19 10:31 Dose: Not Given Chlorhexidine Gluconate (Hibiclens For Decolonization -) 1 applic TP HS [facility] Last Admin: 02/12/19 21:40 Dose: 1 applic Chlorhexidine Gluconate (Peridex -) 15 ml MM BID [facility] Last Admin: 02/13/19 09:18 Dose: 15 ml Gabapentin (Neurontin -) 300 mg PO DAILY [facility] Last Admin: 02/13/19 09:18 Dose: 300 mg Heparin Sodium (Porcine) (Heparin -) 1,000 unit IVPUSH PRN PRN PRN Reason: Heparin Last Admin: 02/13/19 07:26 Dose: 1,000 unit Heparin Sodium (Porcine) (Heparin -) 5,000 unit IVPUSH PRN PRN PRN Reason: Heparin Last Admin: 02/12/19 01:58 Dose: 5,000 unit Norepinephrine Bitartrate 8, (000 mcg/ Dextrose) 500 mls @ 18.75 mls/hr IV TITR [facility]; Protocol Last Admin: 02/12/19 20:18 Dose: Not Given Vasopressin 50 units/ Sodium (Chloride) 100 mls @ 4 mls/hr IVPB ASDIR [facility]; Protocol Last Admin: 02/12/19 20:19 Dose: Not Given Meropenem 500 mg/ Dextrose 100 mls @ 200 mls/hr IVPB Q12H [facility] Last Admin: 02/13/19 09:21 Dose: 200 mls/hr Propofol (Diprivan -) 1,000,000 mcg in 100 mls @ 3.765 mls/hr IVPB TITR [facility]; Protocol Last Admin: 02/13/19 02:30 Dose: 50 mcg/kg/min, 37.65 mls/hr Midazolam HCl 100 mg/ Sodium (Chloride) 100 mls @ 1 mls/hr IVPB TITR [facility]; Protocol Last Admin: 02/13/19 02:02 Dose: Not Given Heparin Sodium (Porcine) 25, (000 unit/ Sodium Chloride) 500 mls @ 20 mls/hr IV TITR [facility]; Protocol Last Titration: 02/13/19 07:26 Dose: 1,700 unit/hr, 34 mls/hr Insulin Aspart (Novolog Vial Sliding Scale -) 1 vial SQ ACHS [facility]; Protocol Last Admin: 02/13/19 10:57 Dose: Not Given Metoprolol Tartrate (Lopressor Injection -) 5 mg IVPUSH Q4H PRN PRN Reason: TACHYCARDIA Last Admin: 02/13/19 07:56 Dose: 5 mg Midazolam HCl (Versed -) 2 mg IVPUSH Q8H PRN PRN Reason: AGITATION Last Admin: 02/12/19 00:59 Dose: 2 mg Nystatin (Mycostatin Cream -) 1 applic TP Q6HPO [facility] Last Admin: 02/13/19 06:56 Dose: 1 applic Pantoprazole Sodium (Protonix Iv) 40 mg IVPUSH DAILY [facility] Last Admin: 02/13/19 09:18 Dose: 40 mg - Objective Vital Signs: Vital Signs Temperature 100.3 F H 02/13/19 12:00 Pulse Rate 116 H 02/13/19 12:00 Respiratory Rate 20 02/13/19 12:39 Blood Pressure 117/82 02/13/19 12:00 O2 Sat by Pulse Oximetry (%) 100 02/13/19 08:31 Constitutional: Yes: Obese, Other Cardiovascular: Yes: S1, S2 Respiratory: Yes: Intubated, Mechanically Ventilated Gastrointestinal: Yes: Normal Bowel Sounds, Soft Musculoskeletal: Yes: WNL Extremities: Yes: Other Wound/Incision: Yes: Dressing Dry and Intact Labs: CBC, BMP 02/13/19 05:00 02/13/19 05:00 INR, PTT INR 1.71 (0.83-1.09) H 02/09/19 05:00 Fibrinogen 474.0 mg/dL (238-498) 02/11/19 08:58 - ....Imaging Chest X-ray: Report Reviewed, Image Reviewed Assessment/Plan Problem List - Problems (1) Bilateral leg ulcer Code(s): L97.919 - NON-PRS CHRONIC ULC UNSP PRT OF R LOW LEG W UNSP SEVERITY; L97.929 - NON-PRS CHRONIC ULC UNSP PRT OF L LOW LEG W UNSP SEVERITY (2) Sepsis Code(s): A41.9 - SEPSIS, UNSPECIFIED ORGANISM Qualifiers: Sepsis type: sepsis due to unspecified organism Sepsis acute organ dysfunction status: unspecified Qualified Code(s): A41.9 - Sepsis, unspecified organism (3) ARF (acute renal failure) Code(s): N17.9 - ACUTE KIDNEY FAILURE, UNSPECIFIED (4) Afib Code(s): I48.91 - UNSPECIFIED ATRIAL FIBRILLATION Qualifiers: Atrial fibrillation type: paroxysmal Qualified Code(s): I48.0 - Paroxysmal atrial fibrillation (5) Altered mental status Code(s): R41.82 - ALTERED MENTAL STATUS, UNSPECIFIED (6) Cellulitis Code(s): L03.90 - CELLULITIS, UNSPECIFIED Qualifiers: Site of cellulitis: unspecified site Qualified Code(s): L03.90 - Cellulitis , unspecified (7) DM2 (diabetes mellitus, type 2) Code(s): E11.9 - TYPE 2 DIABETES MELLITUS WITHOUT COMPLICATIONS Qualifiers: Diabetes mellitus long-term insulin use: with ad terminal makeup operator use Diabetes mellitus complication detail: with other circulatory complications (8) Encephalopathy due to metabolic factor or toxin Code(s): [id number] - (9) HTN (hypertension) Code(s): I10 - ESSENTIAL (PRIMARY) HYPERTENSION (10) Hyperkalemia Code(s): E87.5 - HYPERKALEMIA (11) Lactic acidosis Code(s): E87.2 - ACIDOSIS (12) Leukocytosis Code(s): D72.829 - ELEVATED WHITE BLOOD CELL COUNT, UNSPECIFIED (13) Metabolic acidosis Code(s): E87.2 - ACIDOSIS (14) Morbid obesity Code(s): E66.01 - MORBID (SEVERE) OBESITY DUE TO EXCESS CALORIES (15) Severe sepsis Code(s): A41.9 - SEPSIS, UNSPECIFIED ORGANISM; R65.20 - SEVERE SEPSIS WITHOUT SEPTIC SHOCK (16) Venous stasis Code(s): I87.8 - OTHER SPECIFIED DISORDERS OF VEINS Assessment/Plan 53 y.o. female with PMH of chronic b/l LE ulcers, cellulitis, T2 DM, HTN, HLD, CKD, Anemia, GERD, obesity, AFIB, Asthma, and bipolar disorder brought to the ER by her brother for lethargy/AMS for the last several days noted to be in ARF , with leukocytosis, and b/l LE ulcers with malodorous drainage/erythema/ warmth. Currently receiving HD and hypotensive on Vasopressors Shock possibly from Sepsis-- on vasopressors AMS/Toxic metabolic encephalopathy/Uremia Infected b/l LE ulcers/cellulitis ARF on CKD - emergent HD started Hyperkalemia Acidosis Uremia Leukocytosis Lactic acidosis AFIB DM Morbid Obesity Asthma Bipolar d.o. HTN HLD continue abx vanco level noted check vanco level tomorrow if above 15 hold the dose vent support nutrition rest as per icu cc 40 min
--- NOTE | 2019-02-13 14:20 | PN ---
Progress Note, Physician History of Present Illness: Pt seen and examined at bedside. She remains in the ICU. She remains intubated. - Current Medication List Current Medications: Active Medications Acetaminophen (Ofirmev Injection -) 1,000 mg IVPB Q6H PRN PRN Reason: FEVER Last Admin: 02/12/19 18:31 Dose: 1,000 mg Budesonide/Formoterol Fumarate (Symbicort 80/4.5mcg -) 2 puff IH BID [facility] Last Admin: 02/13/19 10:31 Dose: Not Given Chlorhexidine Gluconate (Hibiclens For Decolonization -) 1 applic TP HS [facility] Last Admin: 02/12/19 21:40 Dose: 1 applic Chlorhexidine Gluconate (Peridex -) 15 ml MM BID [facility] Last Admin: 02/13/19 09:18 Dose: 15 ml Gabapentin (Neurontin -) 300 mg PO DAILY [facility] Last Admin: 02/13/19 09:18 Dose: 300 mg Heparin Sodium (Porcine) (Heparin -) 1,000 unit IVPUSH PRN PRN PRN Reason: Heparin Last Admin: 02/13/19 07:26 Dose: 1,000 unit Heparin Sodium (Porcine) (Heparin -) 5,000 unit IVPUSH PRN PRN PRN Reason: Heparin Last Admin: 02/12/19 01:58 Dose: 5,000 unit Norepinephrine Bitartrate 8, (000 mcg/ Dextrose) 500 mls @ 18.75 mls/hr IV TITR [facility]; Protocol Last Admin: 02/12/19 20:18 Dose: Not Given Vasopressin 50 units/ Sodium (Chloride) 100 mls @ 4 mls/hr IVPB [facility]; Protocol Last Admin: 02/12/19 20:19 Dose: Not Given Meropenem 500 mg/ Dextrose 100 mls @ 200 mls/hr IVPB Q12H [facility] Last Admin: 02/13/19 09:21 Dose: 200 mls/hr Propofol (Diprivan -) 1,000,000 mcg in 100 mls @ 3.765 mls/hr IVPB TITR [facility]; Protocol Last Admin: 02/13/19 02:30 Dose: 50 mcg/kg/min, 37.65 mls/hr Midazolam HCl 100 mg/ Sodium (Chloride) 100 mls @ 1 mls/hr IVPB TITR [facility]; Protocol Last Admin: 02/13/19 02:02 Dose: Not Given Heparin Sodium (Porcine) 25, (000 unit/ Sodium Chloride) 500 mls @ 20 mls/hr IV TITR [facility]; Protocol Last Titration: 02/13/19 07:26 Dose: 1,700 unit/hr, 34 mls/hr Insulin Aspart (Novolog Vial Sliding Scale -) 1 vial SQ ACHS [facility]; Protocol Last Admin: 02/13/19 10:57 Dose: Not Given Metoprolol Tartrate (Lopressor Injection -) 5 mg IVPUSH Q4H PRN PRN Reason: TACHYCARDIA Last Admin: 02/13/19 07:56 Dose: 5 mg Midazolam HCl (Versed -) 2 mg IVPUSH Q8H PRN PRN Reason: AGITATION Last Admin: 02/12/19 00:59 Dose: 2 mg Nystatin (Mycostatin Cream -) 1 applic TP Q6HPO [facility] Last Admin: 02/13/19 06:56 Dose: 1 applic Pantoprazole Sodium (Protonix Iv) 40 mg IVPUSH DAILY [facility] Last Admin: 02/13/19 09:18 Dose: 40 mg - Objective Vital Signs: Vital Signs Temperature 100.3 F H 02/13/19 12:00 Pulse Rate 110 H 02/13/19 13:00 Respiratory Rate 02/13/19 13:00 Blood Pressure 126/74 02/13/19 13:00 O2 Sat by Pulse Oximetry (%) 100 02/13/19 08:31 Constitutional: Yes: Calm Eyes: Yes: Conjunctiva Clear HENT: Yes: Atraumatic Cardiovascular: Yes: S1, S2 Respiratory: Yes: Intubated, Mechanically Ventilated Gastrointestinal: Yes: Normal Bowel Sounds, Soft Genitourinary: Yes: Johnson Present Musculoskeletal: Yes: Muscle Weakness Edema: Yes Integumentary: Yes: Erythema Wound/Incision: Yes: Dressing Dry and Intact Neurological: Yes: Lethargy Labs: CBC, BMP 02/13/19 05:00 02/13/19 05:00 INR, PTT INR 1.71 (0.83-1.09) H 02/09/19 05:00 Fibrinogen 474.0 mg/dL (238-498) 02/11/19 08:58 - ....Imaging Chest X-ray: Report Reviewed Problem List - Problems (1) NOVA (acute kidney injury) Code(s): N17.9 - ACUTE KIDNEY FAILURE, UNSPECIFIED (2) Acute metabolic encephalopathy Code(s): G93.41 - METABOLIC ENCEPHALOPATHY (3) Sepsis Code(s): A41.9 - SEPSIS, UNSPECIFIED ORGANISM Qualifiers: Sepsis type: sepsis due to unspecified organism Sepsis acute organ dysfunction status: unspecified Qualified Code(s): A41.9 - Sepsis, unspecified organism (4) ARF (acute renal failure) Code(s): N17.9 - ACUTE KIDNEY FAILURE, UNSPECIFIED Assessment/Plan Current Medications Generic Name Dose Route Start Last Admin Trade Name Freq PRN Reason Stop Dose Admin Acetaminophen 1,000 mg 02/09/19 21:35 02/12/19 18:31 Ofirmev Injection - IVPB 1,000 mg Q6H PRN Administration FEVER Budesonide/Formoterol Fumarate 2 puff 02/08/19 10:00 02/13/19 10:31 Symbicort 80/4.5mcg - IH Not Given BID [facility] Chlorhexidine Gluconate 1 applic 02/08/19 22:00 02/12/19 21:40 Hibiclens For Decolonization - TP 1 applic HS [facility] Administration Chlorhexidine Gluconate 15 ml 02/11/19 12:15 02/13/19 09:18 Peridex - MM 15 ml BID [facility] Administration Gabapentin 300 mg 02/08/19 10:00 02/13/19 09:18 Neurontin - PO 300 mg DAILY [facility] Administration Heparin Sodium (Porcine) 1,000 unit 02/10/19 12:02 02/13/19 07:26 Heparin - IVPUSH 1,000 unit PRN PRN Administration Heparin Heparin Sodium (Porcine) 5,000 unit 02/10/19 12:02 02/12/19 01:58 Heparin - IVPUSH 5,000 unit PRN PRN Administration Heparin Norepinephrine Bitartrate 8, 500 mls @ 18.75 mls/hr 02/08/19 13:00 02/12/19 20:18 000 mcg/ Dextrose IV Not Given TITR [facility] Protocol 5 MCG/MIN Vasopressin 50 units/ Sodium 100 mls @ 4 mls/hr 02/08/19 13:30 02/12/19 20:19 Chloride IVPB Not Given ASDIR [facility] Protocol 2 UNITS/HR Meropenem 500 mg/ Dextrose 100 mls @ 200 mls/hr 02/08/19 22:00 02/13/19 09:21 IVPB 200 mls/hr Q12H [facility] Administration Propofol 1,000,000 mcg in 100 mls @ 3.765 mls/hr 02/08/19 22:00 02/13/19 02: 30 Diprivan - IVPB 50 mcg/kg/min TITR [facility] 37.65 mls/hr Administration Protocol 5 MCG/KG/MIN Midazolam HCl 100 mg/ Sodium 100 mls @ 1 mls/hr 02/09/19 00:15 02/13/19 02:02 Chloride IVPB Not Given TITR [facility] Protocol 1 MG/HR Heparin Sodium (Porcine) 25, 500 mls @ 20 mls/hr 02/10/19 12:30 02/13/19 07: 26 000 unit/ Sodium Chloride IV 1,700 unit/hr TITR [facility] 34 mls/hr Titration Protocol 1,000 UNIT/HR Insulin Aspart 1 vial 02/08/19 11:00 02/13/19 10:57 Novolog Vial Sliding Scale - SQ Not Given ACHS [facility] Protocol Metoprolol Tartrate 5 mg 02/11/19 22:22 02/13/19 07:56 Lopressor Injection - IVPUSH 5 mg Q4H PRN Administration TACHYCARDIA Midazolam HCl 2 mg 02/12/19 00:50 02/12/19 00:59 Versed - IVPUSH 2 mg Q8H PRN Administration AGITATION Nystatin 1 applic 02/08/19 12:00 02/13/19 06:56 Mycostatin Cream - TP 1 applic Q6HPO [facility] Administration Pantoprazole Sodium 40 mg 02/09/19 16:45 02/13/19 09:18 Protonix Iv IVPUSH 40 mg DAILY [facility] Administration Impression 1. NOVA 2. hyperkalemia 3. obesity 4. DM 5. a-fib 6. HTN 7. chronic lower extremity ulcers 8. gastritis 9. sepsis 10. hyperglycemia 11. metabolic acidosis 12. acute resp failure Plan - cont to monitor renal function - vent support - renal function is improved, no more HD - monitor urine output - weaning per pulm - wound care to lower ext
--- NOTE | 2019-02-13 14:25 | PN ---
Physical Exam: SUBJECTIVE: Patient seen and examined in the ICU. Off sedation, still intubated. Pt was not tolerating CPAP/PS yesterday. No acute events overnight. No pressors required at this time. OBJECTIVE: Vital Signs Period Temp Pulse Resp BP Sys/Callahan Pulse Ox Last 24 Hr 99.4 F-102 F 102-141 18-26 101-144/56-101 100-100 General: intubated, sedated Heart: Normal S1,S2 no mrg Lung: decreased breath sounds at the bases, no wheezing or stridor appreciated. Abd: soft, nontender, globose abdomen. Ext: + edema, erythema, legs wrapped, but previously no abscesses yesterday. Laboratory Results - last 24 hr 02/12/19 02/12/19 02/12/19 07:55 16:02 21:54 WBC RBC Hgb Hct MCV MCH MCHC RDW Plt Count MPV PTT (Actin FS) Sodium Potassium Chloride Carbon Dioxide Anion Gap BUN Creatinine Est GFR (CKD-EPI)AfAm Est GFR (CKD-EPI)NonAf POC Glucometer 156 112 Random Glucose Calcium Phosphorus 2.2 L Magnesium 1.5 L Total Bilirubin AST ALT Alkaline Phosphatase Total Protein Albumin 02/13/19 02/13/19 02/13/19 05:00 05:00 05:00 WBC 8.0 RBC 3.28 L Hgb 9.4 L Hct 28.5 L MCV 86.8 MCH 28.7 MCHC 33.0 RDW 15.7 H Plt Count 224 MPV 9.2 PTT (Actin FS) 40.0 H Sodium 144 Potassium 4.0 Chloride 109 H Carbon Dioxide 29 Anion Gap 6 L BUN 34.4 H Creatinine 1.2 Est GFR (CKD-EPI)AfAm 58.92 Est GFR (CKD-EPI)NonAf 50.84 POC Glucometer Random Glucose 150 H Calcium 8.7 Phosphorus 2.2 L Magnesium 1.7 L Total Bilirubin 0.4 AST 11 L ALT 14 Alkaline Phosphatase 101 Total Protein 5.5 L Albumin 2.1 L 02/13/19 02/13/19 02/13/19 06:54 10:48 13:45 WBC RBC Hgb Hct MCV MCH MCHC RDW Plt Count MPV PTT (Actin FS) 45.7 H Sodium Potassium Chloride Carbon Dioxide Anion Gap BUN Creatinine Est GFR (CKD-EPI)AfAm Est GFR (CKD-EPI)NonAf POC Glucometer 163 150 Random Glucose Calcium Phosphorus Magnesium Total Bilirubin AST ALT Alkaline Phosphatase Total Protein Albumin Active Medications Generic Name Dose Route Start Last Admin Trade Name Freq PRN Reason Stop Dose Admin Acetaminophen 1,000 mg 02/09/19 21:35 02/12/19 18:31 Ofirmev Injection - IVPB 1,000 mg Q6H PRN Administration FEVER Budesonide/Formoterol Fumarate 2 puff 02/08/19 10:00 02/13/19 10:31 Symbicort 80/4.5mcg - IH Not Given BID LANCE Chlorhexidine Gluconate 1 applic 02/08/19 22:00 02/12/19 21:40 Hibiclens For Decolonization - TP 1 applic HS LANCE Administration Chlorhexidine Gluconate 15 ml 02/11/19 12:15 02/13/19 09:18 Peridex - MM 15 ml BID LANCE Administration Gabapentin 300 mg 02/08/19 10:00 02/13/19 09:18 Neurontin - PO 300 mg DAILY LANCE Administration Heparin Sodium (Porcine) 1,000 unit 02/10/19 12:02 02/13/19 07:26 Heparin - IVPUSH 1,000 unit PRN PRN Administration Heparin Heparin Sodium (Porcine) 5,000 unit 02/10/19 12:02 02/12/19 01:58 Heparin - IVPUSH 5,000 unit PRN PRN Administration Heparin Norepinephrine Bitartrate 8, 500 mls @ 18.75 mls/hr 02/08/19 13:00 02/12/19 20:18 000 mcg/ Dextrose IV Not Given TITR LANCE Protocol 5 MCG/MIN Vasopressin 50 units/ Sodium 100 mls @ 4 mls/hr 02/08/19 13:30 02/12/19 20:19 Chloride IVPB Not Given ASDIR L[facility] Protocol 2 UNITS/HR Meropenem 500 mg/ Dextrose 100 mls @ 200 mls/hr 02/08/19 22:00 02/13/19 09:21 IVPB 200 mls/hr Q12H LANCE Administration Propofol 1,000,000 mcg in 100 mls @ 3.765 mls/hr 02/08/19 22:00 02/13/19 02: 30 Diprivan - IVPB 50 mcg/kg/min TITR LANCE 37.65 mls/hr Administration Protocol 5 MCG/KG/MIN Midazolam HCl 100 mg/ Sodium 100 mls @ 1 mls/hr 02/09/19 00:15 02/13/19 02:02 Chloride IVPB Not Given TITR LANCE Protocol 1 MG/HR Heparin Sodium (Porcine) 25, 500 mls @ 20 mls/hr 02/10/19 12:30 02/13/19 07: 26 000 unit/ Sodium Chloride IV 1,700 unit/hr TITR [facility]ANCE 34 mls/hr Titration Protocol 1,000 UNIT/HR Insulin Aspart 1 vial 02/08/19 11:00 02/13/19 10:57 Novolog Vial Sliding Scale - SQ Not Given ACHS LANCE Protocol Metoprolol Tartrate 5 mg 02/11/19 22:22 02/13/19 07:56 Lopressor Injection - IVPUSH 5 mg Q4H PRN Administration TACHYCARDIA Midazolam HCl 2 mg 02/12/19 00:50 02/12/19 00:59 Versed - IVPUSH 2 mg Q8H PRN Administration AGITATION Nystatin 1 applic 02/08/19 12:00 02/13/19 06:56 Mycostatin Cream - TP 1 applic Q6HPO LANCE Administration Pantoprazole Sodium 40 mg 02/09/19 16:45 02/13/19 09:18 Protonix Iv IVPUSH 40 mg DAILY LANCE Administration ASSESSMENT/PLAN: 53F PMH B/L LE chronic Venous stasis ulcerations, Chronic Afib on AC, HTN, poorly controlled T2DM, Dyslipedemia, Bipolar disorder, CKD (non-compliant with medications) BIBEMS to [facility] for altered mental status. ICU admission for emergent HD. Neuro - currently off sedation - weaned off sedation, will monitor Respiratory - continue symbicort - intubated, maintain SaO2>90% RENAL: Acute Renal failure with emergent need for dialysis - Bun/Cr 38/1.4 > 32.3/1 - d/c trialysis RIJ today - renal recs appreciated - decent urine output - continuing to monitor U.O./lytes - renal function is improved, no more HD at this time. CARDIO - EKG w/ a-fib w/ RVR/septic shock on pressors - d/c vasopressin - lopressor 25 BID, will push lopressor 5 in between if HR >120. - Tele monitoring - cardiology recs appreciated - amio gtt if hr >150s - heparin gtt. ID -> Sepsis likely 2/2 LE Wound Ulcers/AMS/Toxic metabolic encephalopathy/ Uremia - Infected b/l LE ulcers/cellulitis, no abscess seen on exam - Urine and Blood Cultures negative, wound culture LLE: N.L.F. gram negative bacilli, MRSA, group D strep or enterococcus, RLE: L.F. G- bacilli, N.L.F, group d strep or enterococcus. - vanco level noted - check vanco level tomorrow - if above 15 we will hold the dose of vanco FEN free H2O replacement Monitor lytes Repleted Mg and PO4 through OG tube. NPO PPx: DVT: FOBT + continue heparin gtt Hb today higher than yesterday, no signs of acute blood loss, will continue to monitor. GI: pantoprazole 40 IVP Visit type - Emergency Visit Emergency Visit: No - New Patient This patient is new to me today: No - Critical Care Critical Care patient: Yes Total Critical Care Time (in minutes): 40 Critical Care Statement: The care of this patient involved high complexity decision making to prevent further life threatening deterioration of the patient 's condition and/or to evaluate & treat vital organ system(s) failure or risk of failure. - Discharge Referral Referred to [facility] Med [facility] No
[2019-02-13] MEDS: ACETAMINOPHEN 1000 MG/100 ML VIAL (NON FORMULARY) IVPB PRN ×2 (14:58→21:13)
[2019-02-13] MEDS ORDERED: MAGNESIUM SULF 50% (8.12 MEQ/2 ML-1 GM VIAL) IVPB ONE (15:00)
[2019-02-13] MEDS ORDERED: POTASSIUM PHOSPHATE 20 MM in SODIUM CHLORIDE 250 ML IVPB ONE (15:01)
--- NOTE | 2019-02-13 15:04 | PN ---
Progress Note, Physician Chief Complaint: Intubated. Off pressors. Telem AF HR 90-140 History of Present Illness: 53 year old female chronic atrial fibrillation on eliquis, hypertension, diabetes mellitus, hyperlipidemia, chronic kidney disease, chronic bilateral leg ulcers initially came to the hospital for altered mental status. She was noted to have malodorous dressings on her legs. She was in acute renal failure with a BUN/Cre of 179/11 and septic shock 2/2 infected lower extremity wound ulcers. She is currently in the ICU intubated, sedated, and on vasopressors. She received emergent hemodialysis in the ICU. Echocardiogram 10/2018 normal EF no valvular disease PASP moderately elevated. - Current Medication List Current Medications: Active Medications Acetaminophen (Ofirmev Injection -) 1,000 mg IVPB Q6H PRN PRN Reason: FEVER Last Admin: 02/12/19 18:31 Dose: 1,000 mg Budesonide/Formoterol Fumarate (Symbicort 80/4.5mcg -) 2 puff IH BID LANCE Last Admin: 02/13/19 10:31 Dose: Not Given Chlorhexidine Gluconate (Hibiclens For Decolonization -) 1 applic TP HS LANCE Last Admin: 02/12/19 21:40 Dose: 1 applic Chlorhexidine Gluconate (Peridex -) 15 ml MM BID LANCE Last Admin: 02/13/19 09:18 Dose: 15 ml Gabapentin (Neurontin -) 300 mg PO DAILY LANCE Last Admin: 02/13/19 09:18 Dose: 300 mg Heparin Sodium (Porcine) (Heparin -) 1,000 unit IVPUSH PRN PRN PRN Reason: Heparin Last Admin: 02/13/19 07:26 Dose: 1,000 unit Heparin Sodium (Porcine) (Heparin -) 5,000 unit IVPUSH PRN PRN PRN Reason: Heparin Last Admin: 02/12/19 01:58 Dose: 5,000 unit Norepinephrine Bitartrate 8, (000 mcg/ Dextrose) 500 mls @ 18.75 mls/hr IV TITR [facility]; Protocol Last Admin: 02/12/19 20:18 Dose: Not Given Vasopressin 50 units/ Sodium (Chloride) 100 mls @ 4 mls/hr IVPB ASDIR [facility]; Protocol Last Admin: 02/12/19 20:19 Dose: Not Given Meropenem 500 mg/ Dextrose 100 mls @ 200 mls/hr IVPB Q12H LANCE Last Admin: 02/13/19 09:21 Dose: 200 mls/hr Propofol (Diprivan -) 1,000,000 mcg in 100 mls @ 3.765 mls/hr IVPB TITR [facility]; Protocol Last Admin: 02/13/19 02:30 Dose: 50 mcg/kg/min, 37.65 mls/hr Midazolam HCl 100 mg/ Sodium (Chloride) 100 mls @ 1 mls/hr IVPB TITR [facility]; Protocol Last Admin: 02/13/19 02:02 Dose: Not Given Heparin Sodium (Porcine) 25, (000 unit/ Sodium Chloride) 500 mls @ 20 mls/hr IV TITR [facility]; Protocol Last Titration: 02/13/19 07:26 Dose: 1,700 unit/hr, 34 mls/hr Insulin Aspart (Novolog Vial Sliding Scale -) 1 vial SQ ACHS [facility]; Protocol Last Admin: 02/13/19 10:57 Dose: Not Given Metoprolol Tartrate (Lopressor Injection -) 5 mg IVPUSH Q4H PRN PRN Reason: TACHYCARDIA Last Admin: 02/13/19 07:56 Dose: 5 mg Midazolam HCl (Versed -) 2 mg IVPUSH Q8H PRN PRN Reason: AGITATION Last Admin: 02/12/19 00:59 Dose: 2 mg Nystatin (Mycostatin Cream -) 1 applic TP Q6HPO [facility] Last Admin: 02/13/19 06:56 Dose: 1 applic Pantoprazole Sodium (Protonix Iv) 40 mg IVPUSH DAILY [facility] Last Admin: 02/13/19 09:18 Dose: 40 mg - Objective Vital Signs: Vital Signs Temperature 100.3 F H 02/13/19 12:00 Pulse Rate 110 H 02/13/19 13:00 Respiratory Rate 02/13/19 13:00 Blood Pressure 126/74 02/13/19 13:00 O2 Sat by Pulse Oximetry (%) 100 02/13/19 08:31 Constitutional: Yes: Well Nourished, No Distress Eyes: Yes: Conjunctiva Clear, EOM Intact HENT: Yes: Atraumatic, Normocephalic Neck: Yes: Supple, Trachea Midline Cardiovascular: Yes: Tachycardia, Pulse Irregular, S1, S2. No: JVD Respiratory: Yes: Regular Gastrointestinal: Yes: Normal Bowel Sounds Edema: Yes Edema: LLE: Trace, RLE: Trace Labs: CBC, BMP 02/13/19 05:00 02/13/19 05:00 INR, PTT INR 1.71 (0.83-1.09) H 02/09/19 05:00 Fibrinogen 474.0 mg/dL (238-498) 02/11/19 08:58 Assessment/Plan 1. Chronic Afib. 2. Pulmonary HTN 3.Morbid obesity 4. Chronic Lext ulcer and admitted with sepsis and cellulitis. 5. Acute renal failure now improved. Improving Add metoprolol 25mg bid Add digoxin 0.125mg qd Metoprolol IV prn HR >120
[2019-02-13] MEDS: HEPARIN - 25,000 UNIT in SODIUM CHLORIDE 495 ML IV SCH (15:55)
[2019-02-13] MEDS: NOREPINEPHRINE BITARTRATE 8,000 MCG in DEXTROSE 5%-WATER - 492 ML IV SCH (15:56)
[2019-02-13] MEDS: VASOPRESSIN 50 UNITS in SODIUM CHLORIDE 97.5 ML IVPB SCH (15:56)
[2019-02-13] MEDS: CHLORHEXIDINE GLUCONATE 4% CLEANSER FOR DECOLONIZATION TP SCH (21:10)
[2019-02-13 23:13] LABS: BLOOD UREA NITROGEN 29.2 mg/dL (7-18); CALCIUM 8.7 mg/dL (8.5-10.1); POTASSIUM 4.2 mmol/L (3.5-5.1)
[2019-02-14] MEDS: HEPARIN - 25,000 UNIT in SODIUM CHLORIDE 495 ML IV SCH ×3 (00:11→13:57)
[2019-02-14] MEDS: NYSTATIN 100,000 UNIT/GM TOPICAL CREAM 15 GM TUBE TP SCH ×4 (00:14→17:11)
[2019-02-14] MEDS: MIDAZOLAM 100 MG in SODIUM CHLORIDE 100 ML IVPB SCH (00:15)
[2019-02-14 06:15] LABS: BASO % 0.8 % (0-2.0); HEMATOCRIT 27.2 % (32.4-45.2); HEMOGLOBIN 9.2 GM/dL (10.7-15.3); LYMPH % 12.2 % (8-40); MCH 29.7 pg (25.7-33.7); MCHC 33.9 g/dl (32.0-36.0); MEAN CELL VOLUME 87.5 fl (80-96); MEAN PLT VOLUME 9.1 fl (7.5-11.1); MONO % 8.1 % (3.8-10.2); NEUT % 75.9 % (42.8-82.8); PLATELET COUNT 214 K/MM3 (134-434); RBC 3.11 M/mm3 (3.60-5.2); RDW 15.3 % (11.6-15.6)
[2019-02-14] MEDS: INSULIN SLIDING SCALE (NOVOLOG) 1 VIAL SQ SCH ×4 (06:37→22:19)
[2019-02-14 07:01] LABS: ALBUMIN 1.9 g/dl (3.4-5.0); BILIRUBIN,TOTAL 0.6 mg/dL (0.2-1); BLOOD UREA NITROGEN 26.1 mg/dL (7-18); CALCIUM 8.3 mg/dL (8.5-10.1); POTASSIUM 3.9 mmol/L (3.5-5.1); TOT PROT 5.6 g/dl (6.4-8.2)
[2019-02-14] MEDS ORDERED: PT OWN MED DRAWER 7, Y5N ONE ×3 (09:11→22:11)
[2019-02-14] MEDS: CHLORHEXIDINE GLUCONATE 0.12% 15ML CUP MM SCH ×2 (09:16→22:18)
[2019-02-14] MEDS: GABAPENTIN 300 MG CAPSULE (FP) PO SCH (09:16)
[2019-02-14] MEDS: PANTOPRAZOLE SODIUM 40 MG VIAL IVPUSH SCH (09:16)
[2019-02-14] MEDS: MEROPENEM 500 MG in DEXTROSE 5%-WATER 100 ML IVPB SCH (09:16)
[2019-02-14] MEDS: BUDESONIDE/FORMETEROL FUMARATE 80/4.5 mcg INHALER IH SCH ×2 (09:17→22:18)
--- NOTE | 2019-02-14 10:59 | PN ---
Progress Note (short form) - Note Progress Note: PULM/CRITICAL CARE PROGRESS NOTE: SUBJECTIVE: Patient seen and examined in the ICU. Remains intubated. Sedation is off. Tolerating PSV 5/5 .40 OBJECTIVE: Current Medications Budesonide/Formoterol Fumarate (Symbicort 80/4.5mcg -) 2 puff IH BID LANCE Last Admin: 02/14/19 09:17 Dose: Not Given Chlorhexidine Gluconate (Hibiclens For Decolonization -) 1 applic TP HS LANCE Last Admin: 02/13/19 21:10 Dose: 1 applic Chlorhexidine Gluconate (Peridex -) 15 ml MM BID LANCE Last Admin: 02/14/19 09:16 Dose: 15 ml Gabapentin (Neurontin -) 300 mg PO DAILY [facility] Last Admin: 02/14/19 09:16 Dose: 300 mg Heparin Sodium (Porcine) (Heparin -) 1,000 unit IVPUSH PRN PRN PRN Reason: Heparin Last Admin: 02/13/19 16:02 Dose: 1,000 unit Heparin Sodium (Porcine) (Heparin -) 5,000 unit IVPUSH PRN PRN PRN Reason: Heparin Last Admin: 02/12/19 01:58 Dose: 5,000 unit Norepinephrine Bitartrate 8, (000 mcg/ Dextrose) 500 mls @ 18.75 mls/hr IV TITR [facility]; Protocol Last Admin: 02/13/19 15:56 Dose: Not Given Vasopressin 50 units/ Sodium (Chloride) 100 mls @ 4 mls/hr IVPB ASDIR [facility]; Protocol Last Admin: 02/13/19 15:56 Dose: Not Given Meropenem 500 mg/ Dextrose 100 mls @ 200 mls/hr IVPB Q12H [facility] Last Admin: 02/14/19 09:16 Dose: 200 mls/hr Propofol (Diprivan -) 1,000,000 mcg in 100 mls @ 3.765 mls/hr IVPB TITR [facility]; Protocol Last Titration: 02/14/19 06:39 Dose: 25 mcg/kg/min, 18.825 mls/hr Midazolam HCl 100 mg/ Sodium (Chloride) 100 mls @ 1 mls/hr IVPB TITR [facility]; Protocol Last Admin: 02/14/19 00:15 Dose: Not Given Heparin Sodium (Porcine) 25, (000 unit/ Sodium Chloride) 500 mls @ 20 mls/hr IV TITR [facility]; Protocol Last Titration: 02/14/19 08:49 Dose: 0 unit/hr, 0 mls/hr Insulin Aspart (Novolog Vial Sliding Scale -) 1 vial SQ ACHS [facility]; Protocol Last Admin: 02/14/19 06:37 Dose: 2 units Metoprolol Tartrate (Lopressor Injection -) 5 mg IVPUSH Q4H PRN PRN Reason: TACHYCARDIA Last Admin: 02/13/19 15:57 Dose: 5 mg Midazolam HCl (Versed -) 2 mg IVPUSH Q8H PRN PRN Reason: AGITATION Last Admin: 02/12/19 00:59 Dose: 2 mg Nystatin (Mycostatin Cream -) 1 applic TP Q6HPO [facility] Last Admin: 02/14/19 05:37 Dose: 1 applic Pantoprazole Sodium (Protonix Iv) 40 mg IVPUSH DAILY [facility] Last Admin: 02/14/19 09:16 Dose: 40 mg Vital Signs Temp 99.7 F H 02/14/19 07:35 Pulse 106 H 02/14/19 09:00 Resp 17 02/14/19 09:00 BP 113/89 02/14/19 09:00 Pulse Ox 97 02/14/19 08:32 Intake & Output 02/13/19 02/14/19 02/14/19 18:59 06:59 18:59 Intake Total 884 872 Output Total 400 1000 Balance 484 -128 Weight 134.354 kg Intake: IV 365 672 DIPRIVAN - 1,000,000 mcg 216 In 100 ml @ 5 MCG/KG/MIN 3.765 mls/hr IVPB TITR LANCE Rx#:[id number] Heparin - 25,000 Unit In 365 456 Normal Saline - 495 ml @ 1,000 UNIT/HR 20 mls/hr IV TITR LANCE Rx#: [id number] IVPB 394 200 Tube Feeding 40 Tube Irrigant 85 Output: Urine 400 1000 Johnson 400 1000 Other: Voiding Method Indwelling Catheter Indwelling Catheter Indwelling Catheter Bowel Movement No Yes Body Mass Index (BMI) 49.1 EXAM: Gen: intubated, sedated Heart: RRR Lung: decreased breath sounds at the bases Abd: soft, nontender Ext: + edema, erythema, legs wrapped CBC, BMP 02/14/19 05:45 02/14/19 05:45 ASSESSMENT AND PLAN: Acute Respiratory Failure Cellulitis/Infected Leg Ulcers Septic Shock Acute Kidney Injury requiring emergent HD Hyperkalemia improved Lactic Acidosis Atrial Fibrillation HTN DM Hyperlipidemia Anemia - Hold sedation and extubate when awake; check cuff leak first - continue antibiotics - wound care - monitor urine output, creatinine - free water replacement - replete lytes - rate control - continue anticoagulation - DVT/GI prophylaxis Critical Care Time 45min Danie Soliz Pulm/Critical Care [employer]PER[employer]
[2019-02-14] MEDS: HEPARIN NA (PORCINE) 5,000 UNITS/ML 1ML VIAL IVPUSH PRN (11:21)
[2019-02-14] MEDS: METOPROLOL TARTRATE 5 MG/5 ML VIAL IVPUSH PRN (11:37)
[2019-02-14 11:55] LABS: ANISOCYTOSIS 3+; MACROCYTOSIS 0; PLATELET ESTIMATE NORMAL; TEAR DROP CELLS 2+
--- NOTE | 2019-02-14 13:01 | PN ---
Progress Note, Physician - Current Medication List Current Medications: Active Medications Budesonide/Formoterol Fumarate (Symbicort 80/4.5mcg -) 2 puff IH BID LANCE Last Admin: 02/14/19 09:17 Dose: Not Given Chlorhexidine Gluconate (Hibiclens For Decolonization -) 1 applic TP HS LANCE Last Admin: 02/13/19 21:10 Dose: 1 applic Chlorhexidine Gluconate (Peridex -) 15 ml MM BID LANCE Last Admin: 02/14/19 09:16 Dose: 15 ml Gabapentin (Neurontin -) 300 mg PO DAILY LANCE Last Admin: 02/14/19 09:16 Dose: 300 mg Heparin Sodium (Porcine) (Heparin -) 1,000 unit IVPUSH PRN PRN PRN Reason: Heparin Last Admin: 02/13/19 16:02 Dose: 1,000 unit Heparin Sodium (Porcine) (Heparin -) 5,000 unit IVPUSH PRN PRN PRN Reason: Heparin Last Admin: 02/14/19 11:21 Dose: 5,000 unit Meropenem 500 mg/ Dextrose 100 mls @ 200 mls/hr IVPB Q12H LANCE Last Admin: 02/14/19 09:16 Dose: 200 mls/hr Heparin Sodium (Porcine) 25, (000 unit/ Sodium Chloride) 500 mls @ 20 mls/hr IV TITR [facility]; Protocol Last Admin: 02/14/19 12:28 Dose: 2,050 unit/hr, 41 mls/hr Insulin Aspart (Novolog Vial Sliding Scale -) 1 vial SQ ACHS [facility]; Protocol Last Admin: 02/14/19 11:18 Dose: Not Given Metoprolol Tartrate (Lopressor Injection -) 5 mg IVPUSH Q4H PRN PRN Reason: TACHYCARDIA Last Admin: 02/14/19 11:37 Dose: 5 mg Nystatin (Mycostatin Cream -) 1 applic TP Q6HPO [facility] Last Admin: 02/14/19 12:23 Dose: 1 applic Pantoprazole Sodium (Protonix Iv) 40 mg IVPUSH DAILY [facility] Last Admin: 02/14/19 09:16 Dose: 40 mg - Objective Vital Signs: Vital Signs Temperature 99.5 F 02/14/19 11:00 Pulse Rate 125 H 02/14/19 11:37 Respiratory Rate 21 H 02/14/19 11:59 Blood Pressure 118/76 02/14/19 11:37 O2 Sat by Pulse Oximetry (%) 98 02/14/19 11:59 Labs: CBC, BMP 02/14/19 05:45 02/14/19 05:45 INR, PTT INR 1.71 (0.83-1.09) H 02/09/19 05:00 Fibrinogen 474.0 mg/dL (238-498) 02/11/19 08:58
[2019-02-14] MEDS: PROPOFOL 1,000,000 MCG/100 ML VIAL IVPB SCH ×2 (13:30→22:16)
--- NOTE | 2019-02-14 14:40 | PN ---
Progress Note, Physician Chief Complaint: NO CHANGES OVERNIGHT UNABLE TO EXTUBATE SEDATED - Current Medication List Current Medications: Active Medications Budesonide/Formoterol Fumarate (Symbicort 80/4.5mcg -) 2 puff IH BID LANCE Last Admin: 02/14/19 09:17 Dose: Not Given Chlorhexidine Gluconate (Hibiclens For Decolonization -) 1 applic TP HS LANCE Last Admin: 02/13/19 21:10 Dose: 1 applic Chlorhexidine Gluconate (Peridex -) 15 ml MM BID [facility] Last Admin: 02/14/19 09:16 Dose: 15 ml Gabapentin (Neurontin -) 300 mg PO DAILY [facility] Last Admin: 02/14/19 09:16 Dose: 300 mg Heparin Sodium (Porcine) (Heparin -) 1,000 unit IVPUSH PRN PRN PRN Reason: Heparin Last Admin: 02/13/19 16:02 Dose: 1,000 unit Heparin Sodium (Porcine) (Heparin -) 5,000 unit IVPUSH PRN PRN PRN Reason: Heparin Last Admin: 02/14/19 11:21 Dose: 5,000 unit Meropenem 500 mg/ Dextrose 100 mls @ 200 mls/hr IVPB Q12H [facility] Last Admin: 02/14/19 09:16 Dose: 200 mls/hr Heparin Sodium (Porcine) 25, (000 unit/ Sodium Chloride) 500 mls @ 20 mls/hr IV TITR [facility]; Protocol Last Admin: 02/14/19 13:57 Dose: Not Given Propofol (Diprivan -) 1,000,000 mcg in 100 mls @ 4.031 mls/hr IVPB TITR [facility]; Protocol Last Admin: 02/14/19 13:30 Dose: 25 mcg/kg/min, 20.153 mls/hr Insulin Aspart (Novolog Vial Sliding Scale -) 1 vial SQ ACHS [facility]; Protocol Last Admin: 02/14/19 11:18 Dose: Not Given Metoprolol Tartrate (Lopressor Injection -) 5 mg IVPUSH Q4H PRN PRN Reason: TACHYCARDIA Last Admin: 02/14/19 11:37 Dose: 5 mg Nystatin (Mycostatin Cream -) 1 applic TP Q6HPO [facility] Last Admin: 02/14/19 12:23 Dose: 1 applic Pantoprazole Sodium (Protonix Iv) 40 mg IVPUSH DAILY [facility] Last Admin: 02/14/19 09:16 Dose: 40 mg - Objective Vital Signs: Vital Signs Temperature 99.5 F 02/14/19 11:00 Pulse Rate 102 H 02/14/19 13:00 Respiratory Rate 02/14/19 13:00 Blood Pressure 98/59 L 02/14/19 13:00 O2 Sat by Pulse Oximetry (%) 98 02/14/19 11:59 Constitutional: Yes: Other Cardiovascular: Yes: Regular Rate and Rhythm Respiratory: Yes: Diminished, Mechanically Ventilated Gastrointestinal: Yes: Abdomen, Obese Genitourinary: Yes: Johnson Present Musculoskeletal: Yes: Muscle Weakness Edema: Yes Integumentary: Yes: Pressure Ulcer, Rash, Venous Stasis Changes Wound/Incision: Yes: Open to air, Excoriated, Other Neurological: Yes: Other Labs: CBC, BMP 02/14/19 05:45 02/14/19 05:45 INR, PTT INR 1.71 (0.83-1.09) H 02/09/19 05:00 Fibrinogen 474.0 mg/dL (238-498) 02/11/19 08:58 Problem List - Problems (1) Noncompliance Code(s): Z91.19 - PATIENT'S NONCOMPLIANCE W OTH MEDICAL TREATMENT AND REGIMEN (2) Uncontrolled diabetes mellitus Code(s): E11.65 - TYPE 2 DIABETES MELLITUS WITH HYPERGLYCEMIA (3) NOVA (acute kidney injury) Code(s): N17.9 - ACUTE KIDNEY FAILURE, UNSPECIFIED (4) Acute metabolic encephalopathy Code(s): G93.41 - METABOLIC ENCEPHALOPATHY (5) Bilateral leg ulcer Code(s): L97.919 - NON-PRS CHRONIC ULC UNSP PRT OF R LOW LEG W UNSP SEVERITY; L97.929 - NON-PRS CHRONIC ULC UNSP PRT OF L LOW LEG W UNSP SEVERITY Qualifiers: Non-pressure ulcer stage: limited to breakdown of skin Qualified Code(s): L97.911 - Non-pressure chronic ulcer of unspecified part of right lower leg limited to breakdown of skin; L97.921 - Non-pressure chronic ulcer of unspecified part of left lower leg limited to breakdown of skin (6) Sepsis Code(s): A41.9 - SEPSIS, UNSPECIFIED ORGANISM Qualifiers: Sepsis type: sepsis due to unspecified organism Sepsis acute organ dysfunction status: unspecified Qualified Code(s): A41.9 - Sepsis, unspecified organism (7) Abdominal lymphadenopathy Code(s): R59.0 - LOCALIZED ENLARGED LYMPH NODES (8) Afib Code(s): I48.91 - UNSPECIFIED ATRIAL FIBRILLATION Qualifiers: Atrial fibrillation type: paroxysmal Qualified Code(s): I48.0 - Paroxysmal atrial fibrillation (9) DM2 (diabetes mellitus, type 2) Code(s): E11.9 - TYPE 2 DIABETES MELLITUS WITHOUT COMPLICATIONS Qualifiers: Diabetes mellitus penitentiary insulin use: with supervisor long goods use Diabetes mellitus complication detail: with other circulatory complications (10) Morbid obesity Code(s): E66.01 - MORBID (SEVERE) OBESITY DUE TO EXCESS CALORIES (11) Sleep apnea Code(s): G47.30 - SLEEP APNEA, UNSPECIFIED Qualifiers: Sleep apnea type: idiopathic sleep related nonobstructive alveolar hypoventilation Qualified Code(s): G47.34 - Idiopathic sleep related nonobstructive alveolar hypoventilation (12) Toxic metabolic encephalopathy Code(s): G92 - TOXIC ENCEPHALOPATHY Assessment/Plan IV ABX PER ID CHECKING CULTURES INTUBATED VENT SUPPORT RESP FAILURE/SEPTIC SHOCK WOUND CARE CHRONIC LOWER EXTREMITY ULCERS ADVANCED DIRECTIVES D/W HER BROTHER FULL CODE STATUS TRY TO WEAN OFF VENT POSSIBLE/DECREASE SEDATION CHECK MENTAL STATUS OFF SEDATION DVT PROPHYLAXIS DM CONTROL BGM NGT WITH GLUCERNA FEEDS IVF REPLETE ELCTROLYTES BP SUPPORT ON VASOPRESSIN TAPER OFF TOLERATED
--- NOTE | 2019-02-14 15:08 | PN ---
Progress Note, Physician History of Present Illness: Pt seen and examined at bedside. She remains in the ICU. She remains intubated. - Current Medication List Current Medications: Active Medications Budesonide/Formoterol Fumarate (Symbicort 80/4.5mcg -) 2 puff IH BID [facility] Last Admin: 02/14/19 09:17 Dose: Not Given Chlorhexidine Gluconate (Hibiclens For Decolonization -) 1 applic TP HS [facility] Last Admin: 02/13/19 21:10 Dose: 1 applic Chlorhexidine Gluconate (Peridex -) 15 ml MM BID [facility] Last Admin: 02/14/19 09:16 Dose: 15 ml Gabapentin (Neurontin -) 300 mg PO DAILY [facility] Last Admin: 02/14/19 09:16 Dose: 300 mg Heparin Sodium (Porcine) (Heparin -) 1,000 unit IVPUSH PRN PRN PRN Reason: Heparin Last Admin: 02/13/19 16:02 Dose: 1,000 unit Heparin Sodium (Porcine) (Heparin -) 5,000 unit IVPUSH PRN PRN PRN Reason: Heparin Last Admin: 02/14/19 11:21 Dose: 5,000 unit Meropenem 500 mg/ Dextrose 100 mls @ 200 mls/hr IVPB Q12H [facility] Last Admin: 02/14/19 09:16 Dose: 200 mls/hr Heparin Sodium (Porcine) 25, (000 unit/ Sodium Chloride) 500 mls @ 20 mls/hr IV TITR [facility]; Protocol Last Admin: 02/14/19 13:57 Dose: Not Given Propofol (Diprivan -) 1,000,000 mcg in 100 mls @ 4.031 mls/hr IVPB TITR [facility]; Protocol Last Admin: 02/14/19 13:30 Dose: 25 mcg/kg/min, 20.153 mls/hr Insulin Aspart (Novolog Vial Sliding Scale -) 1 vial SQ ACHS [facility]; Protocol Last Admin: 02/14/19 11:18 Dose: Not Given Metoprolol Tartrate (Lopressor Injection -) 5 mg IVPUSH Q4H PRN PRN Reason: TACHYCARDIA Last Admin: 02/14/19 11:37 Dose: 5 mg Nystatin (Mycostatin Cream -) 1 applic TP Q6HPO [facility] Last Admin: 02/14/19 12:23 Dose: 1 applic Pantoprazole Sodium (Protonix Iv) 40 mg IVPUSH DAILY [facility] Last Admin: 02/14/19 09:16 Dose: 40 mg - Objective Vital Signs: Vital Signs Temperature 99.5 F 02/14/19 11:00 Pulse Rate 102 H 02/14/19 13:00 Respiratory Rate 02/14/19 13:00 Blood Pressure 98/59 L 02/14/19 13:00 O2 Sat by Pulse Oximetry (%) 98 02/14/19 11:59 Constitutional: Yes: Calm Eyes: Yes: Conjunctiva Clear HENT: Yes: Atraumatic Neck: Yes: Supple Cardiovascular: Yes: S1, S2 Respiratory: Yes: Mechanically Ventilated Gastrointestinal: Yes: Soft, Abdomen, Obese Genitourinary: Yes: Johnson Present Musculoskeletal: Yes: Muscle Weakness Edema: Yes Wound/Incision: Yes: Dressing Dry and Intact Neurological: Yes: Lethargy Labs: CBC, BMP 02/14/19 05:45 02/14/19 05:45 INR, PTT INR 1.71 (0.83-1.09) H 02/09/19 05:00 Fibrinogen 474.0 mg/dL (238-498) 02/11/19 08:58 Problem List - Problems (1) NOVA (acute kidney injury) Code(s): N17.9 - ACUTE KIDNEY FAILURE, UNSPECIFIED (2) Acute metabolic encephalopathy Code(s): G93.41 - METABOLIC ENCEPHALOPATHY (3) Sepsis Code(s): A41.9 - SEPSIS, UNSPECIFIED ORGANISM Qualifiers: Sepsis type: sepsis due to unspecified organism Sepsis acute organ dysfunction status: unspecified Qualified Code(s): A41.9 - Sepsis, unspecified organism (4) ARF (acute renal failure) Code(s): N17.9 - ACUTE KIDNEY FAILURE, UNSPECIFIED Assessment/Plan Current Medications Generic Name Dose Route Start Last Admin Trade Name Freq PRN Reason Stop Dose Admin Budesonide/Formoterol Fumarate 2 puff 02/08/19 10:00 02/14/19 09:17 Symbicort 80/4.5mcg - IH Not Given BID [facility] Chlorhexidine Gluconate 1 applic 02/08/19 22:00 02/13/19 21:10 Hibiclens For Decolonization - TP 1 applic HS [facility] Administration Chlorhexidine Gluconate 15 ml 02/11/19 12:15 02/14/19 09:16 Peridex - MM 15 ml BID [facility] Administration Gabapentin 300 mg 02/08/19 10:00 02/14/19 09:16 Neurontin - PO 300 mg DAILY [facility] Administration Heparin Sodium (Porcine) 1,000 unit 02/10/19 12:02 02/13/19 16:02 Heparin - IVPUSH 1,000 unit PRN PRN Administration Heparin Heparin Sodium (Porcine) 5,000 unit 02/10/19 12:02 02/14/19 11:21 Heparin - IVPUSH 5,000 unit PRN PRN Administration Heparin Meropenem 500 mg/ Dextrose 100 mls @ 200 mls/hr 02/08/19 22:00 02/14/19 09:16 IVPB 200 mls/hr Q12H [facility] Administration Heparin Sodium (Porcine) 25, 500 mls @ 20 mls/hr 02/10/19 12:30 02/14/19 13: 57 000 unit/ Sodium Chloride IV Not Given TITR [facility] Protocol 1,000 UNIT/HR Propofol 1,000,000 mcg in 100 mls @ 4.031 mls/hr 02/14/19 13:45 02/14/19 13: 30 Diprivan - IVPB 25 mcg/kg/min TITR [facility] 20.153 mls/hr Administration Protocol 5 MCG/KG/MIN Insulin Aspart 1 vial 02/08/19 11:00 02/14/19 11:18 Novolog Vial Sliding Scale - SQ Not Given ACHS [facility] Protocol Metoprolol Tartrate 5 mg 02/11/19 22:22 02/14/19 11:37 Lopressor Injection - IVPUSH 5 mg Q4H PRN Administration TACHYCARDIA Nystatin 1 applic 02/08/19 12:00 02/14/19 12:23 Mycostatin Cream - TP 1 applic Q6HPO [facility] Administration Pantoprazole Sodium 40 mg 02/09/19 16:45 02/14/19 09:16 Protonix Iv IVPUSH 40 mg DAILY [facility] Administration Impression 1. NOVA 2. hyperkalemia 3. obesity 4. DM 5. a-fib 6. HTN 7. chronic lower extremity ulcers 8. gastritis 9. sepsis 10. hyperglycemia 11. metabolic acidosis 12. acute resp failure Plan - renal function stable - no need for HD - vent support - monitor urine output - weaning per pulm - wound care to lower ext
--- NOTE | 2019-02-14 21:50 | PN ---
Progress Note, Physician Chief Complaint: arousable yet weak - Current Medication List Current Medications: Active Medications Budesonide/Formoterol Fumarate (Symbicort 80/4.5mcg -) 2 puff IH BID [facility] Last Admin: 02/14/19 09:17 Dose: Not Given Chlorhexidine Gluconate (Hibiclens For Decolonization -) 1 applic TP HS [facility] Last Admin: 02/13/19 21:10 Dose: 1 applic Chlorhexidine Gluconate (Peridex -) 15 ml MM BID [facility] Last Admin: 02/14/19 09:16 Dose: 15 ml Gabapentin (Neurontin -) 300 mg PO DAILY [facility] Last Admin: 02/14/19 09:16 Dose: 300 mg Heparin Sodium (Porcine) (Heparin -) 1,000 unit IVPUSH PRN PRN PRN Reason: Heparin Last Admin: 02/13/19 16:02 Dose: 1,000 unit Heparin Sodium (Porcine) (Heparin -) 5,000 unit IVPUSH PRN PRN PRN Reason: Heparin Last Admin: 02/14/19 11:21 Dose: 5,000 unit Meropenem 500 mg/ Dextrose 100 mls @ 200 mls/hr IVPB Q12H [facility] Last Admin: 02/14/19 09:16 Dose: 200 mls/hr Heparin Sodium (Porcine) 25, (000 unit/ Sodium Chloride) 500 mls @ 20 mls/hr IV TITR [facility]; Protocol Last Admin: 02/14/19 13:57 Dose: Not Given Propofol (Diprivan -) 1,000,000 mcg in 100 mls @ 4.031 mls/hr IVPB TITR [facility]; Protocol Last Admin: 02/14/19 13:30 Dose: 25 mcg/kg/min, 20.153 mls/hr Insulin Aspart (Novolog Vial Sliding Scale -) 1 vial SQ ACHS [facility]; Protocol Last Admin: 02/14/19 16:37 Dose: 2 units Metoprolol Tartrate (Lopressor Injection -) 5 mg IVPUSH Q4H PRN PRN Reason: TACHYCARDIA Last Admin: 02/14/19 11:37 Dose: 5 mg Nystatin (Mycostatin Cream -) 1 applic TP Q6HPO [facility] Last Admin: 02/14/19 17:11 Dose: 1 applic Pantoprazole Sodium (Protonix Iv) 40 mg IVPUSH DAILY [facility] Last Admin: 02/14/19 09:16 Dose: 40 mg - Objective Vital Signs: Vital Signs Temperature 99.2 F 02/14/19 15:00 Pulse Rate 108 H 02/14/19 17:00 Respiratory Rate 02/14/19 21:00 Blood Pressure 106/53 L 02/14/19 19:00 O2 Sat by Pulse Oximetry (%) 98 02/14/19 11:59 Constitutional: Yes: Calm Eyes: Yes: EOM Intact HENT: Yes: Normocephalic Neck: Yes: Trachea Midline Cardiovascular: Yes: Regular Rate and Rhythm Respiratory: Yes: Mechanically Ventilated, Rhonchi Gastrointestinal: Yes: Normal Bowel Sounds ...Rectal Exam: Yes: Deferred Genitourinary: Yes: WNL Musculoskeletal: Yes: Joint Swelling, Muscle Pain, Muscle Weakness Extremities: Yes: Cool Edema: LLE: 2+, RLE: 2+ Neurological: Yes: Alert, Weakness Labs: CBC, BMP 02/14/19 05:45 02/14/19 05:45 INR, PTT INR 1.71 (0.83-1.09) H 02/09/19 05:00 Fibrinogen 474.0 mg/dL (238-498) 02/11/19 08:58 Problem List - Problems (1) Type 2 diabetes mellitus with hyperosmolarity with coma Code(s): E11.01 - TYPE 2 DIABETES MELLITUS WITH HYPEROSMOLARITY WITH COMA Qualifiers: 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: with 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 Qualified Code( s): E11.01 - Type 2 diabetes mellitus with hyperosmolarity with coma; Z79.4 - 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 (2) NOVA (acute kidney injury) Code(s): N17.9 - ACUTE KIDNEY FAILURE, UNSPECIFIED (3) Acute metabolic encephalopathy Code(s): G93.41 - METABOLIC ENCEPHALOPATHY (4) Bilateral leg ulcer Code(s): L97.919 - NON-PRS CHRONIC ULC UNSP PRT OF R LOW LEG W UNSP SEVERITY; L97.929 - NON-PRS CHRONIC ULC UNSP PRT OF L LOW LEG W UNSP SEVERITY Qualifiers: Non-pressure ulcer stage: limited to breakdown of skin Qualified Code(s): L97.911 - Non-pressure chronic ulcer of unspecified part of right lower leg limited to breakdown of skin; L97.921 - Non-pressure chronic ulcer of unspecified part of left lower leg limited to breakdown of skin (5) Hypokalemia Code(s): E87.6 - HYPOKALEMIA (6) Sepsis Code(s): A41.9 - SEPSIS, UNSPECIFIED ORGANISM Qualifiers: Sepsis type: sepsis due to unspecified organism Sepsis acute organ dysfunction status: unspecified Qualified Code(s): A41.9 - Sepsis, unspecified organism Assessment/Plan Current Active Problems NOVA (acute kidney injury) (Acute) Acute metabolic encephalopathy (Acute) Anemia (Acute) Bilateral leg ulcer (Acute) Hypokalemia (Acute) Metabolic encephalopathy (Acute) Noncompliance (Acute) Sepsis (Acute) Type 2 diabetes mellitus with hyperosmolarity with coma (Acute) Uncontrolled diabetes mellitus (Acute) Abnormal Lab Results 02/12/19 02/13/19 02/13/19 05:25 22:30 22:30 RBC Hgb Hct PTT (Actin FS) 44.0 H Sodium 146 H Chloride 111 H Anion Gap 5 L BUN 29.2 H Random Glucose 122 H Calcium Erythropoietin 61.2 H Total Protein Albumin 02/14/19 02/14/19 02/14/19 05:45 05:45 05:45 RBC 3.11 L Hgb 9.2 L Hct 27.2 L PTT (Actin FS) > 400.0 H Sodium Chloride 111 H Anion Gap 7 L BUN 26.1 H Random Glucose 136 H Calcium 8.3 L Erythropoietin Total Protein 5.6 L Albumin 1.9 L 02/14/19 16:25 RBC Hgb Hct PTT (Actin FS) 74.3 H Sodium Chloride Anion Gap BUN Random Glucose Calcium Erythropoietin Total Protein Albumin Laboratory Tests 02/13/19 02/13/19 02/13/19 10:48 16:44 21:15 Sodium Potassium Chloride Carbon Dioxide Anion Gap BUN Creatinine POC Glucometer 150 139 122 Random Glucose 02/13/19 02/14/19 02/14/19 22:30 05:13 05:45 Sodium 146 H 145 Potassium 4.2 3.9 Chloride 111 H 111 H Carbon Dioxide 30 27 Anion Gap 5 L 7 L BUN 29.2 H 26.1 H Creatinine 1.0 1.0 POC Glucometer 132 Random Glucose 122 H 136 H 02/14/19 11:16 Sodium Potassium Chloride Carbon Dioxide Anion Gap BUN Creatinine POC Glucometer 130 Random Glucose plan: supportive care condition guarded bgm qid novolog scale calorie count/tube feeding adjustment
[2019-02-14] MEDS ORDERED: FUROSEMIDE 40 MG/4 ML INJECTABLE VIAL IVPUSH ONE (22:08)
[2019-02-14] MEDS: CHLORHEXIDINE GLUCONATE 4% CLEANSER FOR DECOLONIZATION TP SCH (22:19)
[2019-02-15] MEDS: HEPARIN - 25,000 UNIT in SODIUM CHLORIDE 495 ML IV SCH ×2 (00:05→16:11)
[2019-02-15] MEDS: MEROPENEM 500 MG in DEXTROSE 5%-WATER 100 ML IVPB SCH ×3 (00:07→21:26)
[2019-02-15] MEDS: NYSTATIN 100,000 UNIT/GM TOPICAL CREAM 15 GM TUBE TP SCH ×4 (00:07→17:27)
[2019-02-15] MEDS: PROPOFOL 1,000,000 MCG/100 ML VIAL IVPB SCH ×2 (05:54→15:30)
[2019-02-15] MEDS: INSULIN SLIDING SCALE (NOVOLOG) 1 VIAL SQ SCH ×4 (06:02→21:26)
[2019-02-15 06:10] LABS: HEMATOCRIT 29.1 % (32.4-45.2); HEMOGLOBIN 9.2 GM/dL (10.7-15.3); MCH 27.9 pg (25.7-33.7); MCHC 31.6 g/dl (32.0-36.0); MEAN CELL VOLUME 88.3 fl (80-96); MEAN PLT VOLUME 9.2 fl (7.5-11.1); PLATELET COUNT 243 K/MM3 (134-434); RDW 15.8 % (11.6-15.6); WHITE BLOOD COUNT 12.3 K/mm3 (4.0-10.0)
[2019-02-15 06:41] LABS: BLOOD UREA NITROGEN 24.6 mg/dL (7-18); CALCIUM 8.9 mg/dL (8.5-10.1); CREATININE 0.9 mg/dL (0.55-1.3); MAGNESIUM 1.7 mg/dL (1.8-2.4); PHOSPHOROUS 2.7 mg/dL (2.5-4.9); POTASSIUM 3.7 mmol/L (3.5-5.1)
[2019-02-15] MEDS ORDERED: PT OWN MED DRAWER 7, Y5N ONE ×2 (08:57→10:35)
[2019-02-15] MEDS: CHLORHEXIDINE GLUCONATE 0.12% 15ML CUP MM SCH ×2 (09:37→21:23)
[2019-02-15] MEDS: PANTOPRAZOLE SODIUM 40 MG VIAL IVPUSH SCH (09:37)
[2019-02-15] MEDS: BUDESONIDE/FORMETEROL FUMARATE 80/4.5 mcg INHALER IH SCH ×2 (09:37→21:28)
[2019-02-15] MEDS: FUROSEMIDE 40 MG/4 ML INJECTABLE VIAL IVPUSH SCH ×2 (09:37→21:22)
[2019-02-15] MEDS: GABAPENTIN 300 MG CAPSULE (FP) PO SCH (09:37)
[2019-02-15] MEDS ORDERED: VANCOMYCIN HCL 1,250 MG in DEXTROSE 5%-WATER - 250 ML IVPB ONE (13:00)
--- NOTE | 2019-02-15 13:03 | PN ---
Progress Note, Physician History of Present Illness: awake still intubated - Current Medication List Current Medications: Active Medications Budesonide/Formoterol Fumarate (Symbicort 80/4.5mcg -) 2 puff IH BID [facility] Last Admin: 02/15/19 09:37 Dose: Not Given Chlorhexidine Gluconate (Hibiclens For Decolonization -) 1 applic TP HS [facility] Last Admin: 02/14/19 22:19 Dose: 1 applic Chlorhexidine Gluconate (Peridex -) 15 ml MM BID [facility] Last Admin: 02/15/19 09:37 Dose: 15 ml Furosemide (Lasix Injection -) 40 mg IVPUSH BID [facility] Last Admin: 02/15/19 09:37 Dose: 40 mg Gabapentin (Neurontin -) 300 mg PO DAILY [facility] Last Admin: 02/15/19 09:37 Dose: 300 mg Heparin Sodium (Porcine) (Heparin -) 1,000 unit IVPUSH PRN PRN PRN Reason: Heparin Last Admin: 02/13/19 16:02 Dose: 1,000 unit Heparin Sodium (Porcine) (Heparin -) 5,000 unit IVPUSH PRN PRN PRN Reason: Heparin Last Admin: 02/14/19 11:21 Dose: 5,000 unit Meropenem 500 mg/ Dextrose 100 mls @ 200 mls/hr IVPB Q12H [facility] Last Admin: 02/15/19 10:36 Dose: 200 mls/hr Heparin Sodium (Porcine) 25, (000 unit/ Sodium Chloride) 500 mls @ 20 mls/hr IV TITR [facility]; Protocol Last Admin: 02/15/19 00:05 Dose: 2,050 unit/hr, 41 mls/hr Propofol (Diprivan -) 1,000,000 mcg in 100 mls @ 4.031 mls/hr IVPB TITR [facility]; Protocol Last Admin: 02/15/19 05:54 Dose: 25 mcg/kg/min, 20.153 mls/hr Vancomycin HCl 1,250 mg/ (Dextrose) 250 mls @ 250 mls/2 hr IVPB ONCE ONE; Protocol Stop: 02/15/19 14:59 Insulin Aspart (Novolog Vial Sliding Scale -) 1 vial SQ ACHS [facility]; Protocol Last Admin: 02/15/19 10:55 Dose: Not Given Metoprolol Tartrate (Lopressor Injection -) 5 mg IVPUSH Q4H PRN PRN Reason: TACHYCARDIA Last Admin: 02/14/19 11:37 Dose: 5 mg Nystatin (Mycostatin Cream -) 1 applic TP Q6HPO [facility] Last Admin: 02/15/19 06:03 Dose: 1 applic Pantoprazole Sodium (Protonix Iv) 40 mg IVPUSH DAILY [facility] Last Admin: 02/15/19 09:37 Dose: 40 mg - Objective Vital Signs: Vital Signs Temperature 98.8 F 02/15/19 08:22 Pulse Rate 96 H 02/15/19 10:00 Respiratory Rate 18 02/15/19 12:26 Blood Pressure 112/93 02/15/19 10:00 O2 Sat by Pulse Oximetry (%) 100 02/15/19 08:51 Constitutional: Yes: No Distress, Calm Cardiovascular: Yes: Regular Rate and Rhythm Respiratory: Yes: Intubated, Mechanically Ventilated Gastrointestinal: Yes: Normal Bowel Sounds, Soft Musculoskeletal: Yes: WNL Extremities: Yes: Other Wound/Incision: Yes: Dressing Dry and Intact Neurological: Yes: Alert, Other Psychiatric: Yes: Other Labs: CBC, BMP 02/15/19 05:30 02/15/19 05:30 INR, PTT INR 1.71 (0.83-1.09) H 02/09/19 05:00 Fibrinogen 474.0 mg/dL (238-498) 02/11/19 08:58 Assessment/Plan Problem List - Problems (1) Bilateral leg ulcer Code(s): L97.919 - NON-PRS CHRONIC ULC UNSP PRT OF R LOW LEG W UNSP SEVERITY; L97.929 - NON-PRS CHRONIC ULC UNSP PRT OF L LOW LEG W UNSP SEVERITY (2) Sepsis Code(s): A41.9 - SEPSIS, UNSPECIFIED ORGANISM Qualifiers: Sepsis type: sepsis due to unspecified organism Sepsis acute organ dysfunction status: unspecified Qualified Code(s): A41.9 - Sepsis, unspecified organism (3) ARF (acute renal failure) Code(s): N17.9 - ACUTE KIDNEY FAILURE, UNSPECIFIED (4) Afib Code(s): I48.91 - UNSPECIFIED ATRIAL FIBRILLATION Qualifiers: Atrial fibrillation type: paroxysmal Qualified Code(s): I48.0 - Paroxysmal atrial fibrillation (5) Altered mental status Code(s): R41.82 - ALTERED MENTAL STATUS, UNSPECIFIED (6) Cellulitis Code(s): L03.90 - CELLULITIS, UNSPECIFIED Qualifiers: Site of cellulitis: unspecified site Qualified Code(s): L03.90 - Cellulitis , unspecified (7) DM2 (diabetes mellitus, type 2) Code(s): E11.9 - TYPE 2 DIABETES MELLITUS WITHOUT COMPLICATIONS Qualifiers: Diabetes mellitus fci insulin use: with fci use Diabetes mellitus complication detail: with other circulatory complications (8) Encephalopathy due to metabolic factor or toxin Code(s): [id number] - (9) HTN (hypertension) Code(s): I10 - ESSENTIAL (PRIMARY) HYPERTENSION (10) Hyperkalemia Code(s): E87.5 - HYPERKALEMIA (11) Lactic acidosis Code(s): E87.2 - ACIDOSIS (12) Leukocytosis Code(s): D72.829 - ELEVATED WHITE BLOOD CELL COUNT, UNSPECIFIED (13) Metabolic acidosis Code(s): E87.2 - ACIDOSIS (14) Morbid obesity Code(s): E66.01 - MORBID (SEVERE) OBESITY DUE TO EXCESS CALORIES (15) Severe sepsis Code(s): A41.9 - SEPSIS, UNSPECIFIED ORGANISM; R65.20 - SEVERE SEPSIS WITHOUT SEPTIC SHOCK (16) Venous stasis Code(s): I87.8 - OTHER SPECIFIED DISORDERS OF VEINS Assessment/Plan 53 y.o. female with PMH of chronic b/l LE ulcers, cellulitis, T2 DM, HTN, HLD, CKD, Anemia, GERD, obesity, AFIB, Asthma, and bipolar disorder brought to the ER by her brother for lethargy/AMS for the last several days noted to be in ARF , with leukocytosis, and b/l LE ulcers with malodorous drainage/erythema/ warmth. Currently receiving HD and hypotensive on Vasopressors Shock possibly from Sepsis-- on vasopressors AMS/Toxic metabolic encephalopathy/Uremia Infected b/l LE ulcers/cellulitis ARF on CKD - emergent HD started Hyperkalemia Acidosis Uremia Leukocytosis Lactic acidosis AFIB DM Morbid Obesity Asthma Bipolar d.o. HTN HLD continue abx vanco level noted vanco dose ordered vanco level ordered for tomorrow continue current mgmt rest as per icu vent support cc 40 min
--- NOTE | 2019-02-15 13:49 | PN ---
Progress Note, Physician Chief Complaint: PATIENT WELL KNOWN TO OUR SERVICE FROM MULTIPLE HOSPITAL ADMISSIONS FOR EXTREMITY ULCERS AND NON-COMPLIANT TO FOLLOW UP MEDICAL CARE. PATIENT IS INTUBATED AND SEDATED FOR SEPSIS/SHOCK. - Current Medication List Current Medications: Active Medications Budesonide/Formoterol Fumarate (Symbicort 80/4.5mcg -) 2 puff IH BID [facility] Last Admin: 02/15/19 09:37 Dose: Not Given Chlorhexidine Gluconate (Hibiclens For Decolonization -) 1 applic TP HS [facility] Last Admin: 02/14/19 22:19 Dose: 1 applic Chlorhexidine Gluconate (Peridex -) 15 ml MM BID [facility] Last Admin: 02/15/19 09:37 Dose: 15 ml Furosemide (Lasix Injection -) 40 mg IVPUSH BID [facility] Last Admin: 02/15/19 09:37 Dose: 40 mg Gabapentin (Neurontin -) 300 mg PO DAILY [facility] Last Admin: 02/15/19 09:37 Dose: 300 mg Heparin Sodium (Porcine) (Heparin -) 1,000 unit IVPUSH PRN PRN PRN Reason: Heparin Last Admin: 02/13/19 16:02 Dose: 1,000 unit Heparin Sodium (Porcine) (Heparin -) 5,000 unit IVPUSH PRN PRN PRN Reason: Heparin Last Admin: 02/14/19 11:21 Dose: 5,000 unit Meropenem 500 mg/ Dextrose 100 mls @ 200 mls/hr IVPB Q12H [facility] Last Admin: 02/15/19 10:36 Dose: 200 mls/hr Heparin Sodium (Porcine) 25, (000 unit/ Sodium Chloride) 500 mls @ 20 mls/hr IV TITR [facility]; Protocol Last Admin: 02/15/19 00:05 Dose: 2,050 unit/hr, 41 mls/hr Propofol (Diprivan -) 1,000,000 mcg in 100 mls @ 4.031 mls/hr IVPB TITR [facility]; Protocol Last Admin: 02/15/19 05:54 Dose: 25 mcg/kg/min, 20.153 mls/hr Vancomycin HCl 1,250 mg/ (Dextrose) 250 mls @ 250 mls/2 hr IVPB ONCE ONE; Protocol Stop: 02/15/19 14:59 Insulin Aspart (Novolog Vial Sliding Scale -) 1 vial SQ ACHS [facility]; Protocol Last Admin: 02/15/19 10:55 Dose: Not Given Metoprolol Tartrate (Lopressor Injection -) 5 mg IVPUSH Q4H PRN PRN Reason: TACHYCARDIA Last Admin: 02/14/19 11:37 Dose: 5 mg Nystatin (Mycostatin Cream -) 1 applic TP Q6HPO [facility] Last Admin: 02/15/19 06:03 Dose: 1 applic Pantoprazole Sodium (Protonix Iv) 40 mg IVPUSH DAILY [facility] Last Admin: 02/15/19 09:37 Dose: 40 mg - Objective Vital Signs: Vital Signs Temperature 98.8 F 02/15/19 08:22 Pulse Rate 96 H 02/15/19 10:00 Respiratory Rate 18 02/15/19 12:26 Blood Pressure 112/93 02/15/19 10:00 O2 Sat by Pulse Oximetry (%) 100 02/15/19 08:51 Constitutional: Yes: Other Cardiovascular: Yes: Regular Rate and Rhythm Respiratory: Yes: Mechanically Ventilated Gastrointestinal: Yes: Abdomen, Obese Genitourinary: Yes: Johnson Present Musculoskeletal: Yes: Muscle Weakness Extremities: Yes: Other Edema: Yes Integumentary: Yes: Pressure Ulcer, Rash Wound/Incision: Yes: Dressing Dry and Intact, Excoriated, Unapproximated Neurological: Yes: Pre-Existing Deficit Psychiatric: Yes: Other Labs: CBC, BMP 02/15/19 05:30 02/15/19 05:30 INR, PTT INR 1.71 (0.83-1.09) H 02/09/19 05:00 Fibrinogen 474.0 mg/dL (238-498) 02/11/19 08:58 Problem List - Problems (1) Noncompliance Code(s): Z91.19 - PATIENT'S NONCOMPLIANCE W OTH MEDICAL TREATMENT AND REGIMEN (2) Uncontrolled diabetes mellitus Code(s): E11.65 - TYPE 2 DIABETES MELLITUS WITH HYPERGLYCEMIA (3) NOVA (acute kidney injury) Code(s): N17.9 - ACUTE KIDNEY FAILURE, UNSPECIFIED (4) Acute metabolic encephalopathy Code(s): G93.41 - METABOLIC ENCEPHALOPATHY (5) Bilateral leg ulcer Code(s): L97.919 - NON-PRS CHRONIC ULC UNSP PRT OF R LOW LEG W UNSP SEVERITY; L97.929 - NON-PRS CHRONIC ULC UNSP PRT OF L LOW LEG W UNSP SEVERITY Qualifiers: Non-pressure ulcer stage: limited to breakdown of skin Qualified Code(s): L97.911 - Non-pressure chronic ulcer of unspecified part of right lower leg limited to breakdown of skin; L97.921 - Non-pressure chronic ulcer of unspecified part of left lower leg limited to breakdown of skin (6) Sepsis Code(s): A41.9 - SEPSIS, UNSPECIFIED ORGANISM Qualifiers: Sepsis type: sepsis due to unspecified organism Sepsis acute organ dysfunction status: unspecified Qualified Code(s): A41.9 - Sepsis, unspecified organism (7) Abdominal lymphadenopathy Code(s): R59.0 - LOCALIZED ENLARGED LYMPH NODES (8) Afib Code(s): I48.91 - UNSPECIFIED ATRIAL FIBRILLATION Qualifiers: Atrial fibrillation type: paroxysmal Qualified Code(s): I48.0 - Paroxysmal atrial fibrillation (9) DM2 (diabetes mellitus, type 2) Code(s): E11.9 - TYPE 2 DIABETES MELLITUS WITHOUT COMPLICATIONS Qualifiers: Diabetes mellitus intermediate frame tender insulin use: with care home use Diabetes mellitus complication detail: with other circulatory complications (10) Morbid obesity Code(s): E66.01 - MORBID (SEVERE) OBESITY DUE TO EXCESS CALORIES (11) Sleep apnea Code(s): G47.30 - SLEEP APNEA, UNSPECIFIED Qualifiers: Sleep apnea type: idiopathic sleep related nonobstructive alveolar hypoventilation Qualified Code(s): G47.34 - Idiopathic sleep related nonobstructive alveolar hypoventilation (12) Toxic metabolic encephalopathy Code(s): G92 - TOXIC ENCEPHALOPATHY Assessment/Plan WEAN OFF VENT TOLERATED OFF OF VASOPRESSIN FOR BP SUPPORT PULM F/U APPRECIATED IV MERIPENOM BGM CHECKS DVT PROPHYLAXIS WILL NEED PSYCHIATRY EVAL FOR NON-COMPLIANCE
--- NOTE | 2019-02-15 15:15 | PN ---
Progress Note, Physician History of Present Illness: Pt seen and examined at bedside. She is awake but not yet extubated. - Current Medication List Current Medications: Active Medications Budesonide/Formoterol Fumarate (Symbicort 80/4.5mcg -) 2 puff IH BID [facility] Last Admin: 02/15/19 09:37 Dose: Not Given Chlorhexidine Gluconate (Hibiclens For Decolonization -) 1 applic TP HS [facility] Last Admin: 02/14/19 22:19 Dose: 1 applic Chlorhexidine Gluconate (Peridex -) 15 ml MM BID [facility] Last Admin: 02/15/19 09:37 Dose: 15 ml Furosemide (Lasix Injection -) 40 mg IVPUSH BID [facility] Last Admin: 02/15/19 09:37 Dose: 40 mg Gabapentin (Neurontin -) 300 mg PO DAILY [facility] Last Admin: 02/15/19 09:37 Dose: 300 mg Heparin Sodium (Porcine) (Heparin -) 1,000 unit IVPUSH PRN PRN PRN Reason: Heparin Last Admin: 02/13/19 16:02 Dose: 1,000 unit Heparin Sodium (Porcine) (Heparin -) 5,000 unit IVPUSH PRN PRN PRN Reason: Heparin Last Admin: 02/14/19 11:21 Dose: 5,000 unit Meropenem 500 mg/ Dextrose 100 mls @ 200 mls/hr IVPB Q12H [facility] Last Admin: 02/15/19 10:36 Dose: 200 mls/hr Heparin Sodium (Porcine) 25, (000 unit/ Sodium Chloride) 500 mls @ 20 mls/hr IV TITR [facility]; Protocol Last Admin: 02/15/19 00:05 Dose: 2,050 unit/hr, 41 mls/hr Propofol (Diprivan -) 1,000,000 mcg in 100 mls @ 4.031 mls/hr IVPB TITR [facility]; Protocol Last Admin: 02/15/19 05:54 Dose: 25 mcg/kg/min, 20.153 mls/hr Vancomycin HCl 1,250 mg/ (Dextrose) 250 mls @ 250 mls/2 hr IVPB ONCE ONE; Protocol Stop: 02/15/19 14:59 Insulin Aspart (Novolog Vial Sliding Scale -) 1 vial SQ ACHS [facility]; Protocol Last Admin: 02/15/19 10:55 Dose: Not Given Metoprolol Tartrate (Lopressor Injection -) 5 mg IVPUSH Q4H PRN PRN Reason: TACHYCARDIA Last Admin: 02/14/19 11:37 Dose: 5 mg Nystatin (Mycostatin Cream -) 1 applic TP Q6HPO [facility] Last Admin: 02/15/19 06:03 Dose: 1 applic Pantoprazole Sodium (Protonix Iv) 40 mg IVPUSH DAILY [facility] Last Admin: 02/15/19 09:37 Dose: 40 mg - Objective Vital Signs: Vital Signs Temperature 98.8 F 02/15/19 08:22 Pulse Rate 96 H 02/15/19 10:00 Respiratory Rate 18 02/15/19 12:26 Blood Pressure 112/93 02/15/19 10:00 O2 Sat by Pulse Oximetry (%) 100 02/15/19 08:51 Constitutional: Yes: Calm Eyes: Yes: Conjunctiva Clear HENT: Yes: Atraumatic Neck: Yes: Supple Cardiovascular: Yes: S1, S2 Respiratory: Yes: Intubated, Mechanically Ventilated Gastrointestinal: Yes: Soft, Abdomen, Obese Genitourinary: Yes: Johnson Present Musculoskeletal: Yes: Muscle Weakness Edema: Yes Edema: LUE: 1+, RUE: 1+, LLE: 1+, RLE: 1+ Neurological: Yes: Other (awake) Labs: CBC, BMP 02/15/19 05:30 02/15/19 05:30 INR, PTT INR 1.71 (0.83-1.09) H 02/09/19 05:00 Fibrinogen 474.0 mg/dL (238-498) 02/11/19 08:58 - ....Imaging Chest X-ray: Report Reviewed Problem List - Problems (1) NOVA (acute kidney injury) Code(s): N17.9 - ACUTE KIDNEY FAILURE, UNSPECIFIED (2) Acute metabolic encephalopathy Code(s): G93.41 - METABOLIC ENCEPHALOPATHY (3) Sepsis Code(s): A41.9 - SEPSIS, UNSPECIFIED ORGANISM Qualifiers: Sepsis type: sepsis due to unspecified organism Sepsis acute organ dysfunction status: unspecified Qualified Code(s): A41.9 - Sepsis, unspecified organism (4) ARF (acute renal failure) Code(s): N17.9 - ACUTE KIDNEY FAILURE, UNSPECIFIED Assessment/Plan Current Medications Generic Name Dose Route Start Last Admin Trade Name Freq PRN Reason Stop Dose Admin Budesonide/Formoterol Fumarate 2 puff 02/08/19 10:00 02/15/19 09:37 Symbicort 80/4.5mcg - IH Not Given BID [facility] Chlorhexidine Gluconate 1 applic 02/08/19 22:00 02/14/19 22:19 Hibiclens For Decolonization - TP 1 applic HS L[facility] Administration Chlorhexidine Gluconate 15 ml 02/11/19 12:15 02/15/19 09:37 Peridex - MM 15 ml BID [facility] Administration Furosemide 40 mg 02/15/19 10:00 02/15/19 09:37 Lasix Injection - IVPUSH 40 mg BID [facility] Administration Gabapentin 300 mg 02/08/19 10:00 02/15/19 09:37 Neurontin - PO 300 mg DAILY [facility] Administration Heparin Sodium (Porcine) 1,000 unit 02/10/19 12:02 02/13/19 16:02 Heparin - IVPUSH 1,000 unit PRN PRN Administration Heparin Heparin Sodium (Porcine) 5,000 unit 02/10/19 12:02 02/14/19 11:21 Heparin - IVPUSH 5,000 unit PRN PRN Administration Heparin Meropenem 500 mg/ Dextrose 100 mls @ 200 mls/hr 02/08/19 22:00 02/15/19 10:36 IVPB 200 mls/hr Q12H [facility] Administration Heparin Sodium (Porcine) 25, 500 mls @ 20 mls/hr 02/10/19 12:30 02/15/19 00: 05 000 unit/ Sodium Chloride IV 2,050 unit/hr TITR [facility] 41 mls/hr Administration Protocol 1,000 UNIT/HR Propofol 1,000,000 mcg in 100 mls @ 4.031 mls/hr 02/14/19 13:45 02/15/19 05: 54 Diprivan - IVPB 25 mcg/kg/min TITR [facility] 20.153 mls/hr Administration Protocol 5 MCG/KG/MIN Vancomycin HCl 1,250 mg/ 250 mls @ 250 mls/2 hr 02/15/19 13:00 Dextrose IVPB 02/15/19 14:59 ONCE ONE Protocol Insulin Aspart 1 vial 02/08/19 11:00 02/15/19 10:55 Novolog Vial Sliding Scale - SQ Not Given ACHS [facility] Protocol Metoprolol Tartrate 5 mg 02/11/19 22:22 02/14/19 11:37 Lopressor Injection - IVPUSH 5 mg Q4H PRN Administration TACHYCARDIA Nystatin 1 applic 02/08/19 12:00 02/15/19 06:03 Mycostatin Cream - TP 1 applic Q6HPO [facility] Administration Pantoprazole Sodium 40 mg 02/09/19 16:45 02/15/19 09:37 Protonix Iv IVPUSH 40 mg DAILY [facility] Administration Impression 1. NOVA 2. hyperkalemia 3. obesity 4. DM 5. a-fib 6. HTN 7. chronic lower extremity ulcers 8. gastritis 9. sepsis 10. hyperglycemia 11. metabolic acidosis 12. acute resp failure 13. hypernatremia Plan - increase free water with feeds - renal function stable - monitor output - cont lasix - vent support - wound care to lower ext
--- NOTE | 2019-02-15 15:39 | PN ---
Progress Note, Physician Chief Complaint: Was intubated History of Present Illness: This is a 53 year old female with a PMH of chronic AFIB on Eliquis, HTN, DM HLD , CKD, and chronic bilateral leg ulcers. She initially came to the hospital for altered mental status. . She was noted to be in acute renal failure with a BUN/ Cre of 179/11 and septic shock 2/2 infected lower extremity wound ulcers. She is currently in the ICU intubated, sedated, and on vasopressors. She received emergent hemodialysis in the ICU. Echocardiogram 10/2018 normal EF no valvular disease PASP moderately elevated. - Current Medication List Current Medications: Active Medications Budesonide/Formoterol Fumarate (Symbicort 80/4.5mcg -) 2 puff IH BID [facility] Last Admin: 02/15/19 09:37 Dose: Not Given Chlorhexidine Gluconate (Hibiclens For Decolonization -) 1 applic TP HS [facility] Last Admin: 02/14/19 22:19 Dose: 1 applic Chlorhexidine Gluconate (Peridex -) 15 ml MM BID [facility] Last Admin: 02/15/19 09:37 Dose: 15 ml Furosemide (Lasix Injection -) 40 mg IVPUSH BID [facility] Last Admin: 02/15/19 09:37 Dose: 40 mg Gabapentin (Neurontin -) 300 mg PO DAILY [facility] Last Admin: 02/15/19 09:37 Dose: 300 mg Heparin Sodium (Porcine) (Heparin -) 1,000 unit IVPUSH PRN PRN PRN Reason: Heparin Last Admin: 02/13/19 16:02 Dose: 1,000 unit Heparin Sodium (Porcine) (Heparin -) 5,000 unit IVPUSH PRN PRN PRN Reason: Heparin Last Admin: 02/14/19 11:21 Dose: 5,000 unit Meropenem 500 mg/ Dextrose 100 mls @ 200 mls/hr IVPB Q12H [facility] Last Admin: 02/15/19 10:36 Dose: 200 mls/hr Heparin Sodium (Porcine) 25, (000 unit/ Sodium Chloride) 500 mls @ 20 mls/hr IV TITR [facility]; Protocol Last Admin: 02/15/19 00:05 Dose: 2,050 unit/hr, 41 mls/hr Propofol (Diprivan -) 1,000,000 mcg in 100 mls @ 4.031 mls/hr IVPB TITR [facility]; Protocol Last Admin: 02/15/19 15:30 Dose: Not Given Insulin Aspart (Novolog Vial Sliding Scale -) 1 vial SQ ACHS [facility]; Protocol Last Admin: 02/15/19 10:55 Dose: Not Given Metoprolol Tartrate (Lopressor Injection -) 5 mg IVPUSH Q4H PRN PRN Reason: TACHYCARDIA Last Admin: 02/14/19 11:37 Dose: 5 mg Nystatin (Mycostatin Cream -) 1 applic TP Q6HPO [facility] Last Admin: 02/15/19 12:26 Dose: 1 applic Pantoprazole Sodium (Protonix Iv) 40 mg IVPUSH DAILY [facility] Last Admin: 02/15/19 09:37 Dose: 40 mg - Objective Vital Signs: Vital Signs Temperature 98.8 F 02/15/19 08:22 Pulse Rate 96 H 02/15/19 10:00 Respiratory Rate 18 02/15/19 12:26 Blood Pressure 112/93 02/15/19 10:00 O2 Sat by Pulse Oximetry (%) 100 02/15/19 08:51 Constitutional: Yes: No Distress Eyes: Yes: WNL HENT: Yes: WNL Neck: Yes: WNL Cardiovascular: Yes: Pulse Irregular, S1, S2 Respiratory: Yes: Mechanically Ventilated Edema: LLE: Trace, RLE: Trace Neurological: Yes: Other (sedated) Labs: CBC, BMP 02/15/19 05:30 02/15/19 05:30 INR, PTT INR 1.71 (0.83-1.09) H 02/09/19 05:00 Fibrinogen 474.0 mg/dL (238-498) 02/11/19 08:58 Assessment/Plan 53 year old female with a PMH of chronic AFIB on Eliquis, HTN, DM HLD, CKD, and chronic bilateral leg ulcers. She initially came to the hospital for altered mental status. . She was noted to be in acute renal failure with a BUN/Cre of 179/11 and septic shock 2/2 infected lower extremity wound ulcers. She is currently in the ICU intubated, sedated, and on vasopressors. She received emergent hemodialysis in the ICU. Echocardiogram 10/2018 normal EF no valvular disease PASP moderately elevated. Afib Chronic Presently off AC Rates are presently controlled with Metoprolol Tartrate (Lopressor Injection -) 5 mg IVPUSH Q4H PRN Septic shock on Meropenem Continue Lasix 40 mg IVSS BID Creatine was 11, now 0.9
[2019-02-15] MEDS ORDERED: ACETAMINOPHEN 1000 MG/100 ML VIAL (NON FORMULARY) IVPB PRN (18:10)
[2019-02-15] MEDS: CHLORHEXIDINE GLUCONATE 4% CLEANSER FOR DECOLONIZATION TP SCH (21:22)
[2019-02-16] MEDS: NYSTATIN 100,000 UNIT/GM TOPICAL CREAM 15 GM TUBE TP SCH ×4 (01:11→19:00)
[2019-02-16] MEDS: INSULIN SLIDING SCALE (NOVOLOG) 1 VIAL SQ SCH ×4 (06:12→22:02)
[2019-02-16 06:27] LABS: HEMATOCRIT 28.2 % (32.4-45.2); HEMOGLOBIN 9.1 GM/dL (10.7-15.3); MCH 28.2 pg (25.7-33.7); MCHC 32.1 g/dl (32.0-36.0); MEAN CELL VOLUME 87.8 fl (80-96); MEAN PLT VOLUME 9.5 fl (7.5-11.1); PLATELET COUNT 240 K/MM3 (134-434); RBC 3.22 M/mm3 (3.60-5.2); RDW 15.7 % (11.6-15.6); WHITE BLOOD COUNT 11.4 K/mm3 (4.0-10.0)
[2019-02-16 07:43] LABS: MAGNESIUM 1.5 mg/dL (1.8-2.4); PHOSPHOROUS 2.9 mg/dL (2.5-4.9)
[2019-02-16] MEDS: HEPARIN - 25,000 UNIT in SODIUM CHLORIDE 495 ML IV SCH ×2 (07:51→14:22)
[2019-02-16] MEDS ORDERED: MAGNESIUM SULF 50% (8.12 MEQ/2 ML-1 GM VIAL) IVPB ONE (08:12)
--- NOTE | 2019-02-16 08:58 | PN ---
Progress Note, Physician Chief Complaint: EXTUBATED ON BIPAP NAD IN ICU - Current Medication List Current Medications: Active Medications Acetaminophen (Ofirmev Injection -) 1,000 mg IVPB Q6H PRN PRN Reason: FEVER Last Admin: 02/15/19 18:22 Dose: 1,000 mg Budesonide/Formoterol Fumarate (Symbicort 80/4.5mcg -) 2 puff IH BID [facility] Last Admin: 02/15/19 21:28 Dose: 2 puff Chlorhexidine Gluconate (Hibiclens For Decolonization -) 1 applic TP HS [facility] Last Admin: 02/15/19 21:22 Dose: 1 applic Chlorhexidine Gluconate (Peridex -) 15 ml MM BID [facility] Last Admin: 02/15/19 21:23 Dose: 15 ml Furosemide (Lasix Injection -) 40 mg IVPUSH BID [facility] Last Admin: 02/15/19 21:22 Dose: 40 mg Gabapentin (Neurontin -) 300 mg PO DAILY [facility] Last Admin: 02/15/19 09:37 Dose: 300 mg Heparin Sodium (Porcine) (Heparin -) 1,000 unit IVPUSH PRN PRN PRN Reason: Heparin Last Admin: 02/13/19 16:02 Dose: 1,000 unit Heparin Sodium (Porcine) (Heparin -) 5,000 unit IVPUSH PRN PRN PRN Reason: Heparin Last Admin: 02/14/19 11:21 Dose: 5,000 unit Meropenem 500 mg/ Dextrose 100 mls @ 200 mls/hr IVPB Q12H [facility] Last Admin: 02/15/19 21:26 Dose: 200 mls/hr Heparin Sodium (Porcine) 25, (000 unit/ Sodium Chloride) 500 mls @ 20 mls/hr IV TITR [facility]; Protocol Last Admin: 02/16/19 07:51 Dose: 2,050 unit/hr, 41 mls/hr Insulin Aspart (Novolog Vial Sliding Scale -) 1 vial SQ ACHS [facility]; Protocol Last Admin: 02/16/19 06:12 Dose: 2 units Metoprolol Tartrate (Lopressor Injection -) 5 mg IVPUSH Q4H PRN PRN Reason: TACHYCARDIA Last Admin: 02/14/19 11:37 Dose: 5 mg Nystatin (Mycostatin Cream -) 1 applic TP Q6HPO [facility] Last Admin: 02/16/19 05:37 Dose: 1 applic Pantoprazole Sodium (Protonix Iv) 40 mg IVPUSH DAILY [facility] Last Admin: 02/15/19 09:37 Dose: 40 mg - Objective Vital Signs: Vital Signs Temperature 99.6 F 02/16/19 06:00 Pulse Rate 90 02/16/19 08:13 Respiratory Rate 16 02/16/19 06:00 Blood Pressure 96/54 L 02/16/19 06:00 O2 Sat by Pulse Oximetry (%) 100 02/16/19 08:13 Constitutional: Yes: No Distress Cardiovascular: Yes: Regular Rate and Rhythm Respiratory: Yes: On BiPap Gastrointestinal: Yes: Soft, Abdomen, Obese Genitourinary: Yes: Johnson Present Musculoskeletal: Yes: Muscle Weakness Edema: Yes Integumentary: Yes: Erythema, Pressure Ulcer, Rash, Skin Tear, Venous Stasis Changes Wound/Incision: Yes: Dressing Dry and Intact Neurological: Yes: Pre-Existing Deficit Psychiatric: Yes: Other Labs: CBC, BMP 02/16/19 05:00 02/15/19 05:30 INR, PTT INR 1.71 (0.83-1.09) H 02/09/19 05:00 Fibrinogen 474.0 mg/dL (238-498) 02/11/19 08:58 Problem List - Problems (1) Noncompliance Code(s): Z91.19 - PATIENT'S NONCOMPLIANCE W OTH MEDICAL TREATMENT AND REGIMEN (2) Uncontrolled diabetes mellitus Code(s): E11.65 - TYPE 2 DIABETES MELLITUS WITH HYPERGLYCEMIA (3) NOVA (acute kidney injury) Code(s): N17.9 - ACUTE KIDNEY FAILURE, UNSPECIFIED (4) Acute metabolic encephalopathy Code(s): G93.41 - METABOLIC ENCEPHALOPATHY (5) Bilateral leg ulcer Code(s): L97.919 - NON-PRS CHRONIC ULC UNSP PRT OF R LOW LEG W UNSP SEVERITY; L97.929 - NON-PRS CHRONIC ULC UNSP PRT OF L LOW LEG W UNSP SEVERITY Qualifiers: Non-pressure ulcer stage: limited to breakdown of skin Qualified Code(s): L97.911 - Non-pressure chronic ulcer of unspecified part of right lower leg limited to breakdown of skin; L97.921 - Non-pressure chronic ulcer of unspecified part of left lower leg limited to breakdown of skin (6) Sepsis Code(s): A41.9 - SEPSIS, UNSPECIFIED ORGANISM Qualifiers: Sepsis type: sepsis due to unspecified organism Sepsis acute organ dysfunction status: unspecified Qualified Code(s): A41.9 - Sepsis, unspecified organism (7) Abdominal lymphadenopathy Code(s): R59.0 - LOCALIZED ENLARGED LYMPH NODES (8) Afib Code(s): I48.91 - UNSPECIFIED ATRIAL FIBRILLATION Qualifiers: Atrial fibrillation type: paroxysmal Qualified Code(s): I48.0 - Paroxysmal atrial fibrillation (9) DM2 (diabetes mellitus, type 2) Code(s): E11.9 - TYPE 2 DIABETES MELLITUS WITHOUT COMPLICATIONS Qualifiers: Diabetes mellitus detention insulin use: with ferry terminal agent use Diabetes mellitus complication detail: with other circulatory complications (10) Morbid obesity Code(s): E66.01 - MORBID (SEVERE) OBESITY DUE TO EXCESS CALORIES (11) Sleep apnea Code(s): G47.30 - SLEEP APNEA, UNSPECIFIED Qualifiers: Sleep apnea type: idiopathic sleep related nonobstructive alveolar hypoventilation Qualified Code(s): G47.34 - Idiopathic sleep related nonobstructive alveolar hypoventilation (12) Toxic metabolic encephalopathy Code(s): G92 - TOXIC ENCEPHALOPATHY Assessment/Plan RESP SUPPORT BIPAP PULM EVAL AND F/U APPRECIATED IV MEROPENAM CONTINUE MONITOR VITALS IN ICU DVT PROPHYLAXIS WILL NEED EXTENSIVE WOUND CARE AND LIKELY SNF PLACEMENT MAGNESIUM REPLETED ANEMIA MONITOR H/H
[2019-02-16] MEDS ORDERED: PT OWN MED DRAWER 7, Y5N ONE ×2 (10:43→20:24)
[2019-02-16] MEDS: MEROPENEM 500 MG in DEXTROSE 5%-WATER 100 ML IVPB SCH ×2 (10:50→22:01)
[2019-02-16] MEDS: PANTOPRAZOLE SODIUM 40 MG VIAL IVPUSH SCH (10:51)
[2019-02-16] MEDS: FUROSEMIDE 40 MG/4 ML INJECTABLE VIAL IVPUSH SCH ×2 (10:51→22:01)
--- NOTE | 2019-02-16 12:20 | PN ---
Teaching Attending Note Name of Resident: Filiberto Wilson ATTENDING PHYSICIAN STATEMENT I saw and evaluated the patient. I reviewed the resident's note and discussed the case with the resident. I agree with the resident's findings and plan as documented. SUBJECTIVE: Patient seen and examined in the ICU. Remains extubated and now on NIPPV support. No acute events overnight. No pressors. Intake & Output 02/13/19 02/14/19 02/15/19 02/16/19 23:59 23:59 23:59 23:59 Intake Total 1964 1420.2 1250 592 Output Total 1250 1100 3200 1800 Balance 714 320.2 -1950 -1208 Weight 295 lb 296 lb 3.2 oz 295 lb 5 oz 295 lb 5 oz Last Vital Signs Temp Pulse Resp BP Pulse Ox 99.5 F 84 20 111/55 L 100 02/16/19 11:00 02/16/19 11:00 02/16/19 11:00 02/16/19 11:00 02/16/19 09:00 Active Medications Acetaminophen (Ofirmev Injection -) 1,000 mg IVPB Q6H PRN PRN Reason: FEVER Last Admin: 02/15/19 18:22 Dose: 1,000 mg Budesonide/Formoterol Fumarate (Symbicort 80/4.5mcg -) 2 puff IH BID [facility] Last Admin: 02/15/19 21:28 Dose: 2 puff Chlorhexidine Gluconate (Hibiclens For Decolonization -) 1 applic TP HS [facility] Last Admin: 02/15/19 21:22 Dose: 1 applic Chlorhexidine Gluconate (Peridex -) 15 ml MM BID [facility] Last Admin: 02/15/19 21:23 Dose: 15 ml Furosemide (Lasix Injection -) 40 mg IVPUSH BID [facility] Last Admin: 02/16/19 10:51 Dose: 40 mg Gabapentin (Neurontin -) 300 mg PO DAILY [facility] Last Admin: 02/15/19 09:37 Dose: 300 mg Heparin Sodium (Porcine) (Heparin -) 1,000 unit IVPUSH PRN PRN PRN Reason: Heparin Last Admin: 02/13/19 16:02 Dose: 1,000 unit Heparin Sodium (Porcine) (Heparin -) 5,000 unit IVPUSH PRN PRN PRN Reason: Heparin Last Admin: 02/14/19 11:21 Dose: 5,000 unit Meropenem 500 mg/ Dextrose 100 mls @ 200 mls/hr IVPB Q12H [facility] Last Admin: 02/16/19 10:50 Dose: 200 mls/hr Heparin Sodium (Porcine) 25, (000 unit/ Sodium Chloride) 500 mls @ 20 mls/hr IV TITR [facility]; Protocol Last Admin: 02/16/19 07:51 Dose: 2,050 unit/hr, 41 mls/hr Insulin Aspart (Novolog Vial Sliding Scale -) 1 vial SQ ACHS [facility]; Protocol Last Admin: 02/16/19 06:12 Dose: 2 units Metoprolol Tartrate (Lopressor Injection -) 5 mg IVPUSH Q4H PRN PRN Reason: TACHYCARDIA Last Admin: 02/14/19 11:37 Dose: 5 mg Nystatin (Mycostatin Cream -) 1 applic TP Q6HPO [facility] Last Admin: 02/16/19 05:37 Dose: 1 applic Pantoprazole Sodium (Protonix Iv) 40 mg IVPUSH DAILY [facility] Last Admin: 02/16/19 10:51 Dose: 40 mg Gen: Extubated, Drowsy but arousable on NIPPV support Heart: RRR Lung: decreased breath sounds at the bases Abd: soft, nontender Ext: + edema, erythema, legs wrapped Laboratory Results - last 24 hr 02/15/19 02/15/19 02/16/19 16:21 20:48 05:00 WBC RBC Hgb Hct MCV MCH MCHC RDW Plt Count MPV PTT (Actin FS) POC Glucometer 145 150 Phosphorus Magnesium Random Vancomycin 12.4 L 02/16/19 02/16/19 02/16/19 05:00 05:00 05:00 WBC 11.4 H RBC 3.22 L Hgb 9.1 L Hct 28.2 L MCV 87.8 MCH 28.2 MCHC 32.1 RDW 15.7 H Plt Count 240 MPV 9.5 PTT (Actin FS) 56.1 H POC Glucometer Phosphorus 2.9 Magnesium 1.5 L Random Vancomycin 02/16/19 05:19 WBC RBC Hgb Hct MCV MCH MCHC RDW Plt Count MPV PTT (Actin FS) POC Glucometer 127 Phosphorus Magnesium Random Vancomycin ASSESSMENT AND PLAN: Acute Respiratory Failure Cellulitis/Infected Leg Ulcers Septic Shock Acute Kidney Injury requiring emergent HD Hyperkalemia improved Lactic Acidosis Atrial Fibrillation HTN DM Hyperlipidemia Anemia - NIPPV support as needed - continue antibiotics - wound care - monitor urine output, creatinine - free water replacement - replete lytes - rate control - continue anticoagulation - DVT/GI prophylaxis - ICU monitoring for tenuous respiratory status Dr Andre Critical care time spent in reviewing chart, evaluating patient and formulating plan 35 min
[2019-02-16] MEDS: GABAPENTIN 300 MG CAPSULE (FP) PO SCH (12:31)
[2019-02-16] MEDS: CHLORHEXIDINE GLUCONATE 0.12% 15ML CUP MM SCH ×2 (12:32→22:02)
--- NOTE | 2019-02-16 13:00 | PN ---
Physical Exam: SUBJECTIVE: Patient seen and examined at bedside in the ICU. Extubated. Weaned off vent and on 50% venuti mask today. Off pressors. No acute events overnight. OBJECTIVE: Vital Signs Period Temp Pulse Resp BP Sys/Callahan Pulse Ox Last 24 Hr 99.5 F-100.6 F 80-114 16-24 88-126/52-112 95-100 GENERAL: Extubated. The patient is drowsy but arousable and in no acute distress. HEAD: Normal with no signs of trauma. EYES: PERRL, extraocular movements intact, sclera anicteric, conjunctiva clear. No ptosis. NECK: Trachea midline, full range of motion, supple. LUNGS: Decreased breath sounds at bilateral bases, clear to auscultation bilaterally, no wheezes, no crackles, no accessory muscle use. HEART: Regular rate and rhythm, S1, S2 without murmur, rub or gallop. ABDOMEN: Soft, nontender, nondistended, normoactive bowel sounds, no guarding, no rebound, no hepatosplenomegaly, no masses. EXTREMITIES: 2+ pulses, warm, lower extremities wrapped in bandages, erythematous NEUROLOGICAL: Cranial nerves II through XII grossly intact. SKIN: Warm, dry, normal turgor, no rashes or lesions noted Laboratory Results - last 24 hr 02/15/19 02/15/19 02/16/19 16:21 20:48 05:00 WBC RBC Hgb Hct MCV MCH MCHC RDW Plt Count MPV PTT (Actin FS) POC Glucometer 145 150 Phosphorus Magnesium Random Vancomycin 12.4 L 02/16/19 02/16/19 02/16/19 05:00 05:00 05:00 WBC 11.4 H RBC 3.22 L Hgb 9.1 L Hct 28.2 L MCV 87.8 MCH 28.2 MCHC 32.1 RDW 15.7 H Plt Count 240 MPV 9.5 PTT (Actin FS) 56.1 H POC Glucometer Phosphorus 2.9 Magnesium 1.5 L Random Vancomycin 02/16/19 02/16/19 05:19 12:34 WBC RBC Hgb Hct MCV MCH MCHC RDW Plt Count MPV PTT (Actin FS) POC Glucometer 127 138 Phosphorus Magnesium Random Vancomycin Active Medications Generic Name Dose Route Start Last Admin Trade Name Freq PRN Reason Stop Dose Admin Acetaminophen 1,000 mg 02/15/19 18:10 02/15/19 18:22 Ofirmev Injection - IVPB 1,000 mg Q6H PRN Administration FEVER Budesonide/Formoterol Fumarate 2 puff 02/08/19 10:00 02/15/19 21:28 Symbicort 80/4.5mcg - IH 2 puff BID LANCE Administration Chlorhexidine Gluconate 1 applic 02/08/19 22:00 02/15/19 21:22 Hibiclens For Decolonization - TP 1 applic HS LANCE Administration Chlorhexidine Gluconate 15 ml 02/11/19 12:15 02/16/19 12:32 Peridex - MM Not Given BID LANCE Furosemide 40 mg 02/15/19 10:00 02/16/19 10:51 Lasix Injection - IVPUSH 40 mg BID LANCE Administration Gabapentin 300 mg 02/08/19 10:00 02/16/19 12:31 Neurontin - PO Not Given DAILY LANCE Heparin Sodium (Porcine) 1,000 unit 02/10/19 12:02 02/13/19 16:02 Heparin - IVPUSH 1,000 unit PRN PRN Administration Heparin Heparin Sodium (Porcine) 5,000 unit 02/10/19 12:02 02/14/19 11:21 Heparin - IVPUSH 5,000 unit PRN PRN Administration Heparin Meropenem 500 mg/ Dextrose 100 mls @ 200 mls/hr 02/08/19 22:00 02/16/19 10:50 IVPB 200 mls/hr Q12H LANCE Administration Heparin Sodium (Porcine) 25, 500 mls @ 20 mls/hr 02/10/19 12:30 02/16/19 07: 51 000 unit/ Sodium Chloride IV 2,050 unit/hr TITR LANCE 41 mls/hr Administration Protocol 1,000 UNIT/HR Insulin Aspart 1 vial 02/08/19 11:00 02/16/19 12:38 Novolog Vial Sliding Scale - SQ 2 units ACHS LANCE Administration Protocol Metoprolol Tartrate 5 mg 02/11/19 22:22 02/14/19 11:37 Lopressor Injection - IVPUSH 5 mg Q4H PRN Administration TACHYCARDIA Nystatin 1 applic 02/08/19 12:00 02/16/19 05:37 Mycostatin Cream - TP 1 applic Q6HPO LANCE Administration Pantoprazole Sodium 40 mg 02/09/19 16:45 02/16/19 10:51 Protonix Iv IVPUSH 40 mg DAILY LANCE Administration ASSESSMENT/PLAN: 53F PMH B/L LE chronic Venous stasis ulcerations, Chronic Afib on AC, HTN, poorly controlled T2DM, Dyslipedemia, Bipolar disorder, CKD (non-compliant with medications) BIBEMS to [facility] for altered mental status. ICU admission for emergent HD. Neuro - currently off sedation - weaned off sedation, will monitor Respiratory - continue symbicort - weaned off vent, placed on 50% venturi mask, continue to monitor - maintain SaO2>90% RENAL: Acute Renal failure with emergent need for dialysis - Johnson 3200 cc - continuing to monitor U.O./lytes - renal function is improved, no more HD at this time CARDIO - EKG w/ a-fib w/ RVR/septic shock on pressors - off pressors - Tele monitoring - amio gtt if hr >150s - heparin gtt. ID -> Sepsis likely 2/2 LE Wound Ulcers/AMS/Toxic metabolic encephalopathy/ Uremia - Infected b/l LE ulcers/cellulitis, no abscess seen on exam - Urine and Blood Cultures negative, wound culture LLE: N.L.F. gram negative bacilli, MRSA, group D strep or enterococcus, RLE: L.F. G- bacilli, N.L.F, group d strep or enterococcus. - vanco level 12.4 today - meropenem 500 mg BID FEN free H2O replacement Monitor lytes Repleted Mg and PO4 through OG tube. NPO PPx: DVT: continue heparin gtt Hb today higher than yesterday, no signs of acute blood loss, will continue to monitor. GI: pantoprazole 40 IVP Visit type - Emergency Visit Emergency Visit: Yes ED Registration Date: 02/08/19 Care time: The patient presented to the Emergency Department on the above date and was hospitalized for further evaluation of their emergent condition. - New Patient This patient is new to me today: Yes Date on this admission: 02/17/19 - Critical Care Critical Care patient: Yes Total Critical Care Time (in minutes): 35 Critical Care Statement: The care of this patient involved high complexity decision making to prevent further life threatening deterioration of the patient 's condition and/or to evaluate & treat vital organ system(s) failure or risk of failure. ATTENDING PHYSICIAN STATEMENT I saw and evaluated the patient. I reviewed the resident's note and discussed the case with the resident. I agree with the resident's findings and plan as documented. SUBJECTIVE: OBJECTIVE: ASSESSMENT AND PLAN:
--- NOTE | 2019-02-16 14:09 | PN ---
Progress Note, Physician History of Present Illness: Pt seen and examined at bedside. She is awake and alert. She is now extubated. - Current Medication List Current Medications: Active Medications Acetaminophen (Ofirmev Injection -) 1,000 mg IVPB Q6H PRN PRN Reason: FEVER Last Admin: 02/15/19 18:22 Dose: 1,000 mg Budesonide/Formoterol Fumarate (Symbicort 80/4.5mcg -) 2 puff IH BID LANCE Last Admin: 02/15/19 21:28 Dose: 2 puff Chlorhexidine Gluconate (Hibiclens For Decolonization -) 1 applic TP HS LANCE Last Admin: 02/15/19 21:22 Dose: 1 applic Chlorhexidine Gluconate (Peridex -) 15 ml MM BID LANCE Last Admin: 02/16/19 12:32 Dose: Not Given Furosemide (Lasix Injection -) 40 mg IVPUSH BID LANCE Last Admin: 02/16/19 10:51 Dose: 40 mg Gabapentin (Neurontin -) 300 mg PO DAILY [facility] Last Admin: 02/16/19 12:31 Dose: Not Given Heparin Sodium (Porcine) (Heparin -) 1,000 unit IVPUSH PRN PRN PRN Reason: Heparin Last Admin: 02/13/19 16:02 Dose: 1,000 unit Heparin Sodium (Porcine) (Heparin -) 5,000 unit IVPUSH PRN PRN PRN Reason: Heparin Last Admin: 02/14/19 11:21 Dose: 5,000 unit Meropenem 500 mg/ Dextrose 100 mls @ 200 mls/hr IVPB Q12H [facility]ANCE Last Admin: 02/16/19 10:50 Dose: 200 mls/hr Heparin Sodium (Porcine) 25, (000 unit/ Sodium Chloride) 500 mls @ 20 mls/hr IV TITR [facility]; Protocol Last Admin: 02/16/19 07:51 Dose: 2,050 unit/hr, 41 mls/hr Insulin Aspart (Novolog Vial Sliding Scale -) 1 vial SQ ACHS [facility]; Protocol Last Admin: 02/16/19 12:38 Dose: 2 units Metoprolol Tartrate (Lopressor Injection -) 5 mg IVPUSH Q4H PRN PRN Reason: TACHYCARDIA Last Admin: 02/14/19 11:37 Dose: 5 mg Nystatin (Mycostatin Cream -) 1 applic TP Q6HPO [facility]ANCE Last Admin: 02/16/19 05:37 Dose: 1 applic Pantoprazole Sodium (Protonix Iv) 40 mg IVPUSH DAILY [facility] Last Admin: 02/16/19 10:51 Dose: 40 mg - Objective Vital Signs: Vital Signs Temperature 99.5 F 02/16/19 11:00 Pulse Rate 84 02/16/19 11:00 Respiratory Rate 20 02/16/19 11:00 Blood Pressure 111/55 L 02/16/19 11:00 O2 Sat by Pulse Oximetry (%) 100 02/16/19 09:00 Constitutional: Yes: Calm Eyes: Yes: Conjunctiva Clear HENT: Yes: Atraumatic Cardiovascular: Yes: S1, S2 Respiratory: Yes: On Venti-Mask Gastrointestinal: Yes: Soft, Abdomen, Obese Genitourinary: Yes: Johnson Present Musculoskeletal: Yes: Muscle Weakness Edema: Yes Edema: LLE: 2+, RLE: 2+ Neurological: Yes: Oriented Psychiatric: Yes: Oriented Labs: CBC, BMP 02/16/19 05:00 02/15/19 05:30 INR, PTT INR 1.71 (0.83-1.09) H 02/09/19 05:00 Fibrinogen 474.0 mg/dL (238-498) 02/11/19 08:58 Problem List - Problems (1) NOVA (acute kidney injury) Code(s): N17.9 - ACUTE KIDNEY FAILURE, UNSPECIFIED (2) Acute metabolic encephalopathy Code(s): G93.41 - METABOLIC ENCEPHALOPATHY (3) Sepsis Code(s): A41.9 - SEPSIS, UNSPECIFIED ORGANISM Qualifiers: Sepsis type: sepsis due to unspecified organism Sepsis acute organ dysfunction status: unspecified Qualified Code(s): A41.9 - Sepsis, unspecified organism (4) ARF (acute renal failure) Code(s): N17.9 - ACUTE KIDNEY FAILURE, UNSPECIFIED Assessment/Plan Current Medications Generic Name Dose Route Start Last Admin Trade Name Freq PRN Reason Stop Dose Admin Acetaminophen 1,000 mg 02/15/19 18:10 02/15/19 18:22 Ofirmev Injection - IVPB 1,000 mg Q6H PRN Administration FEVER Budesonide/Formoterol Fumarate 2 puff 02/08/19 10:00 02/15/19 21:28 Symbicort 80/4.5mcg - IH 2 puff BID LANCE Administration Chlorhexidine Gluconate 1 applic 02/08/19 22:00 02/15/19 21:22 Hibiclens For Decolonization - TP 1 applic HS LANCE Administration Chlorhexidine Gluconate 15 ml 02/11/19 12:15 02/16/19 12:32 Peridex - MM Not Given BID LANCE Furosemide 40 mg 02/15/19 10:00 02/16/19 10:51 Lasix Injection - IVPUSH 40 mg BID LANCE Administration Gabapentin 300 mg 02/08/19 10:00 02/16/19 12:31 Neurontin - PO Not Given DAILY LANCE Heparin Sodium (Porcine) 1,000 unit 02/10/19 12:02 02/13/19 16:02 Heparin - IVPUSH 1,000 unit PRN PRN Administration Heparin Heparin Sodium (Porcine) 5,000 unit 02/10/19 12:02 02/14/19 11:21 Heparin - IVPUSH 5,000 unit PRN PRN Administration Heparin Meropenem 500 mg/ Dextrose 100 mls @ 200 mls/hr 02/08/19 22:00 02/16/19 10:50 IVPB 200 mls/hr Q12H LANCE Administration Heparin Sodium (Porcine) 25, 500 mls @ 20 mls/hr 02/10/19 12:30 02/16/19 07: 51 000 unit/ Sodium Chloride IV 2,050 unit/hr TITR LANCE 41 mls/hr Administration Protocol 1,000 UNIT/HR Insulin Aspart 1 vial 02/08/19 11:00 02/16/19 12:38 Novolog Vial Sliding Scale - SQ 2 units ACHS LANCE Administration Protocol Metoprolol Tartrate 5 mg 02/11/19 22:22 02/14/19 11:37 Lopressor Injection - IVPUSH 5 mg Q4H PRN Administration TACHYCARDIA Nystatin 1 applic 02/08/19 12:00 02/16/19 05:37 Mycostatin Cream - TP 1 applic Q6HPO LANCE Administration Pantoprazole Sodium 40 mg 02/09/19 16:45 02/16/19 10:51 Protonix Iv IVPUSH 40 mg DAILY LANCE Administration Impression 1. NOVA 2. hyperkalemia 3. obesity 4. DM 5. a-fib 6. HTN 7. chronic lower extremity ulcers 8. gastritis 9. sepsis 10. hyperglycemia 11. metabolic acidosis 12. acute resp failure 13. hypernatremia Plan - pt now extubated - monitor renal function - monitor pulse ox - renal function stable - monitor output - wound care to lower ext
--- NOTE | 2019-02-16 14:30 | PN ---
Progress Note, Physician Chief Complaint: septic shock History of Present Illness: 53 year old female with a PMH of chronic AFIB on Eliquis, HTN, DM HLD, CKD, and chronic bilateral leg ulcers. She initially came to the hospital for altered mental status. . She was noted to be in acute renal failure with a BUN/Cre of 179/11 and septic shock 2/2 infected lower extremity wound ulcers. She is currently in the ICU intubated, sedated, and on vasopressors. She received emergent hemodialysis in the ICU. Echocardiogram 10/2018 normal EF no valvular disease PASP moderately elevated. - Current Medication List Current Medications: Active Medications Acetaminophen (Ofirmev Injection -) 1,000 mg IVPB Q6H PRN PRN Reason: FEVER Last Admin: 02/15/19 18:22 Dose: 1,000 mg Budesonide/Formoterol Fumarate (Symbicort 80/4.5mcg -) 2 puff IH BID LANCE Last Admin: 02/15/19 21:28 Dose: 2 puff Chlorhexidine Gluconate (Hibiclens For Decolonization -) 1 applic TP HS LANCE Last Admin: 02/15/19 21:22 Dose: 1 applic Chlorhexidine Gluconate (Peridex -) 15 ml MM BID LANCE Last Admin: 02/16/19 12:32 Dose: Not Given Furosemide (Lasix Injection -) 40 mg IVPUSH BID LANCE Last Admin: 02/16/19 10:51 Dose: 40 mg Gabapentin (Neurontin -) 300 mg PO DAILY [facility] Last Admin: 02/16/19 12:31 Dose: Not Given Heparin Sodium (Porcine) (Heparin -) 1,000 unit IVPUSH PRN PRN PRN Reason: Heparin Last Admin: 02/13/19 16:02 Dose: 1,000 unit Heparin Sodium (Porcine) (Heparin -) 5,000 unit IVPUSH PRN PRN PRN Reason: Heparin Last Admin: 02/14/19 11:21 Dose: 5,000 unit Meropenem 500 mg/ Dextrose 100 mls @ 200 mls/hr IVPB Q12H LANCE Last Admin: 02/16/19 10:50 Dose: 200 mls/hr Heparin Sodium (Porcine) 25, (000 unit/ Sodium Chloride) 500 mls @ 20 mls/hr IV TITR LANCE; Protocol Last Admin: 02/16/19 14:22 Dose: Not Given Insulin Aspart (Novolog Vial Sliding Scale -) 1 vial SQ ACHS [facility]; Protocol Last Admin: 02/16/19 12:38 Dose: 2 units Metoprolol Tartrate (Lopressor Injection -) 5 mg IVPUSH Q4H PRN PRN Reason: TACHYCARDIA Last Admin: 02/14/19 11:37 Dose: 5 mg Nystatin (Mycostatin Cream -) 1 applic TP Q6HPO [facility] Last Admin: 02/16/19 05:37 Dose: 1 applic Pantoprazole Sodium (Protonix Iv) 40 mg IVPUSH DAILY [facility] Last Admin: 02/16/19 10:51 Dose: 40 mg - Objective Vital Signs: Vital Signs Temperature 99.5 F 02/16/19 11:00 Pulse Rate 84 02/16/19 11:00 Respiratory Rate 20 02/16/19 11:00 Blood Pressure 111/55 L 02/16/19 11:00 O2 Sat by Pulse Oximetry (%) 100 02/16/19 09:00 Constitutional: Yes: Obese, Pallor Eyes: Yes: WNL HENT: Yes: WNL Neck: Yes: WNL Cardiovascular: Yes: Pulse Irregular, S1, S2 Respiratory: Yes: Mechanically Ventilated Gastrointestinal: Yes: WNL ...Rectal Exam: Yes: Deferred Musculoskeletal: Yes: WNL Extremities: Yes: Other (chronic venous stasis) Edema: Yes Edema: LLE: 1+, RLE: 1+ Peripheral Pulses: Left Radial: 1+, Right Radial: 1+, Left Doralis Pedis: 1+, Right Dorsalis Pedis: 1+, Left Femoral: 1+, Right Femoral: 1+ Wound/Incision: Yes: Dressing Dry and Intact (infected wounds) Neurological: Yes: Alert Labs: CBC, BMP 02/16/19 05:00 02/15/19 05:30 INR, PTT INR 1.71 (0.83-1.09) H 02/09/19 05:00 Fibrinogen 474.0 mg/dL (238-498) 02/11/19 08:58 Assessment/Plan 53 year old female with a PMH of chronic AFIB on Eliquis, HTN, DM HLD, CKD, and chronic bilateral leg ulcers. She initially came to the hospital for altered mental status. . She was noted to be in acute renal failure with a BUN/Cre of 179/11 and septic shock 2/2 infected lower extremity wound ulcers. She is currently in the ICU intubated, sedated, and on vasopressors. She received emergent hemodialysis in the ICU. Echocardiogram 10/2018 normal EF no valvular disease PASP moderately elevated. Ventricular rates are reasonably well controlled in atrial fibrillation ontinue respiratory and pressure support as needed. No need for further cardiac workup in this setting. Please do not hesitate to call us PRN
[2019-02-16] MEDS: BUDESONIDE/FORMETEROL FUMARATE 80/4.5 mcg INHALER IH SCH ×2 (14:42→22:02)
[2019-02-16] MEDS: CHLORHEXIDINE GLUCONATE 4% CLEANSER FOR DECOLONIZATION TP SCH (22:01)
[2019-02-17] MEDS: NYSTATIN 100,000 UNIT/GM TOPICAL CREAM 15 GM TUBE TP SCH ×5 (00:50→23:45)
[2019-02-17 05:57] LABS: HEMATOCRIT 29.1 % (32.4-45.2); HEMOGLOBIN 9.5 GM/dL (10.7-15.3); MCH 28.8 pg (25.7-33.7); MCHC 32.8 g/dl (32.0-36.0); MEAN CELL VOLUME 87.8 fl (80-96); MEAN PLT VOLUME 9.5 fl (7.5-11.1); PLATELET COUNT 310 K/MM3 (134-434); RBC 3.32 M/mm3 (3.60-5.2); RDW 15.3 % (11.6-15.6); WHITE BLOOD COUNT 9.1 K/mm3 (4.0-10.0)
[2019-02-17 06:24] LABS: ALBUMIN 2.3 g/dl (3.4-5.0); BILIRUBIN,TOTAL 0.6 mg/dL (0.2-1); BLOOD UREA NITROGEN 17.5 mg/dL (7-18); CALCIUM 9.1 mg/dL (8.5-10.1); CREATININE 0.9 mg/dL (0.55-1.3); MAGNESIUM 1.8 mg/dL (1.8-2.4); POTASSIUM 3.5 mmol/L (3.5-5.1); TOT PROT 6.3 g/dl (6.4-8.2)
[2019-02-17] MEDS: INSULIN SLIDING SCALE (NOVOLOG) 1 VIAL SQ SCH ×4 (07:17→21:12)
--- NOTE | 2019-02-17 08:58 | PN ---
Progress Note, Physician Chief Complaint: awake alert on nc 2l no fevers - Current Medication List Current Medications: Active Medications Acetaminophen (Ofirmev Injection -) 1,000 mg IVPB Q6H PRN PRN Reason: FEVER Last Admin: 02/15/19 18:22 Dose: 1,000 mg Budesonide/Formoterol Fumarate (Symbicort 80/4.5mcg -) 2 puff IH BID [facility] Last Admin: 02/16/19 22:02 Dose: 2 puff Chlorhexidine Gluconate (Hibiclens For Decolonization -) 1 applic TP HS [facility] Last Admin: 02/16/19 22:01 Dose: 1 applic Chlorhexidine Gluconate (Peridex -) 15 ml MM BID [facility] Last Admin: 02/16/19 22:02 Dose: Not Given Furosemide (Lasix Injection -) 40 mg IVPUSH BID [facility] Last Admin: 02/16/19 22:01 Dose: 40 mg Gabapentin (Neurontin -) 300 mg PO DAILY [facility] Last Admin: 02/16/19 12:31 Dose: Not Given Heparin Sodium (Porcine) (Heparin -) 1,000 unit IVPUSH PRN PRN PRN Reason: Heparin Last Admin: 02/13/19 16:02 Dose: 1,000 unit Heparin Sodium (Porcine) (Heparin -) 5,000 unit IVPUSH PRN PRN PRN Reason: Heparin Last Admin: 02/14/19 11:21 Dose: 5,000 unit Meropenem 500 mg/ Dextrose 100 mls @ 200 mls/hr IVPB Q12H [facility] Last Admin: 02/16/19 22:01 Dose: 200 mls/hr Heparin Sodium (Porcine) 25, (000 unit/ Sodium Chloride) 500 mls @ 20 mls/hr IV TITR [facility]; Protocol Last Admin: 02/16/19 14:22 Dose: Not Given Insulin Aspart (Novolog Vial Sliding Scale -) 1 vial SQ ACHS [facility]; Protocol Last Admin: 02/17/19 07:17 Dose: Not Given Metoprolol Tartrate (Lopressor Injection -) 5 mg IVPUSH Q4H PRN PRN Reason: TACHYCARDIA Last Admin: 02/14/19 11:37 Dose: 5 mg Nystatin (Mycostatin Cream -) 1 applic TP Q6HPO [facility] Last Admin: 02/17/19 07:17 Dose: 1 applic Pantoprazole Sodium (Protonix Iv) 40 mg IVPUSH DAILY [facility] Last Admin: 02/16/19 10:51 Dose: 40 mg - Objective Vital Signs: Vital Signs Temperature 99.4 F 02/17/19 05:00 Pulse Rate 93 H 02/17/19 05:00 Respiratory Rate 23 H 02/17/19 05:00 Blood Pressure 110/68 02/17/19 05:00 O2 Sat by Pulse Oximetry (%) 97 02/17/19 04:15 Constitutional: Yes: Mild Distress Cardiovascular: Yes: Regular Rate and Rhythm Respiratory: Yes: Diminished, On Nasal O2 Gastrointestinal: Yes: Soft, Abdomen, Obese Genitourinary: Yes: Johnson Present Musculoskeletal: Yes: Muscle Weakness Edema: Yes Integumentary: Yes: Pressure Ulcer, Venous Stasis Changes Wound/Incision: Yes: Dressing Dry and Intact Neurological: Yes: Pre-Existing Deficit Labs: CBC, BMP 02/17/19 05:40 02/17/19 05:40 INR, PTT INR 1.71 (0.83-1.09) H 02/09/19 05:00 Fibrinogen 474.0 mg/dL (238-498) 02/11/19 08:58 Problem List - Problems (1) Noncompliance Code(s): Z91.19 - PATIENT'S NONCOMPLIANCE W OTH MEDICAL TREATMENT AND REGIMEN (2) Uncontrolled diabetes mellitus Code(s): E11.65 - TYPE 2 DIABETES MELLITUS WITH HYPERGLYCEMIA (3) NOVA (acute kidney injury) Code(s): N17.9 - ACUTE KIDNEY FAILURE, UNSPECIFIED (4) Acute metabolic encephalopathy Code(s): G93.41 - METABOLIC ENCEPHALOPATHY (5) Bilateral leg ulcer Code(s): L97.919 - NON-PRS CHRONIC ULC UNSP PRT OF R LOW LEG W UNSP SEVERITY; L97.929 - NON-PRS CHRONIC ULC UNSP PRT OF L LOW LEG W UNSP SEVERITY Qualifiers: Non-pressure ulcer stage: limited to breakdown of skin Qualified Code(s): L97.911 - Non-pressure chronic ulcer of unspecified part of right lower leg limited to breakdown of skin; L97.921 - Non-pressure chronic ulcer of unspecified part of left lower leg limited to breakdown of skin (6) Sepsis Code(s): A41.9 - SEPSIS, UNSPECIFIED ORGANISM Qualifiers: Sepsis type: sepsis due to unspecified organism Sepsis acute organ dysfunction status: unspecified Qualified Code(s): A41.9 - Sepsis, unspecified organism (7) Abdominal lymphadenopathy Code(s): R59.0 - LOCALIZED ENLARGED LYMPH NODES (8) Afib Code(s): I48.91 - UNSPECIFIED ATRIAL FIBRILLATION Qualifiers: Atrial fibrillation type: paroxysmal Qualified Code(s): I48.0 - Paroxysmal atrial fibrillation (9) DM2 (diabetes mellitus, type 2) Code(s): E11.9 - TYPE 2 DIABETES MELLITUS WITHOUT COMPLICATIONS Qualifiers: Diabetes mellitus 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 exterminator insulin use: with detention use Diabetes mellitus complication detail: with other circulatory complications (10) Morbid obesity Code(s): E66.01 - MORBID (SEVERE) OBESITY DUE TO EXCESS CALORIES (11) Sleep apnea Code(s): G47.30 - SLEEP APNEA, UNSPECIFIED Qualifiers: Sleep apnea type: idiopathic sleep related nonobstructive alveolar hypoventilation Qualified Code(s): G47.34 - Idiopathic sleep related nonobstructive alveolar hypoventilation (12) Toxic metabolic encephalopathy Code(s): G92 - TOXIC ENCEPHALOPATHY Assessment/Plan RESP SUPPORT BIPAP/nc 02 support PULM EVAL AND F/U APPRECIATED IV MEROPENAM CONTINUE MONITOR VITALS IN ICU DVT PROPHYLAXIS WILL NEED EXTENSIVE WOUND CARE AND LIKELY SNF PLACEMENT MAGNESIUM REPLETED ANEMIA MONITOR H/H
[2019-02-17] MEDS: BUDESONIDE/FORMETEROL FUMARATE 80/4.5 mcg INHALER IH SCH ×2 (10:00→21:12)
[2019-02-17] MEDS: PANTOPRAZOLE SODIUM 40 MG VIAL IVPUSH SCH (10:03)
[2019-02-17] MEDS: GABAPENTIN 300 MG CAPSULE (FP) PO SCH (10:03)
[2019-02-17] MEDS: FUROSEMIDE 40 MG/4 ML INJECTABLE VIAL IVPUSH SCH ×2 (10:04→21:11)
[2019-02-17] MEDS: CHLORHEXIDINE GLUCONATE 0.12% 15ML CUP MM SCH ×2 (10:04→21:12)
[2019-02-17] MEDS: MEROPENEM 500 MG in DEXTROSE 5%-WATER 100 ML IVPB SCH ×2 (11:42→21:11)
--- NOTE | 2019-02-17 11:54 | PN ---
Teaching Attending Note Name of Resident: Hermes Lazcano ATTENDING PHYSICIAN STATEMENT I saw and evaluated the patient. I reviewed the resident's note and discussed the case with the resident. I agree with the resident's findings and plan as documented. SUBJECTIVE: Patient seen and examined in the ICU. Remains extubated and now on NC O2. Used NIPPV support overnight. Denies CP or SOB. No pressors. Intake & Output 02/14/19 02/15/19 02/16/19 02/17/19 23:59 23:59 23:59 23:59 Intake Total 1420.2 1250 592 692 Output Total 1100 3200 5300 Balance 320.2 1950 4705 692 Weight 296 lb 3.2 oz 295 lb 5 oz 295 lb 5 oz Last Vital Signs Temp Pulse Resp BP Pulse Ox 98.0 F 108 H 20 102/66 97 02/17/19 10:00 02/17/19 10:00 02/17/19 10:00 02/17/19 10:00 02/17/19 04:15 Active Medications Acetaminophen (Ofirmev Injection -) 1,000 mg IVPB Q6H PRN PRN Reason: FEVER Last Admin: 02/15/19 18:22 Dose: 1,000 mg Budesonide/Formoterol Fumarate (Symbicort 80/4.5mcg -) 2 puff IH BID [facility]ANCE Last Admin: 02/17/19 10:00 Dose: 2 puff Chlorhexidine Gluconate (Hibiclens For Decolonization -) 1 applic TP HS [facility] Last Admin: 02/16/19 22:01 Dose: 1 applic Chlorhexidine Gluconate (Peridex -) 15 ml MM BID LANCE Last Admin: 02/17/19 10:04 Dose: Not Given Furosemide (Lasix Injection -) 40 mg IVPUSH BID [facility] Last Admin: 02/17/19 10:04 Dose: 40 mg Gabapentin (Neurontin -) 300 mg PO DAILY [facility] Last Admin: 02/17/19 10:03 Dose: 300 mg Heparin Sodium (Porcine) (Heparin -) 1,000 unit IVPUSH PRN PRN PRN Reason: Heparin Last Admin: 02/13/19 16:02 Dose: 1,000 unit Heparin Sodium (Porcine) (Heparin -) 5,000 unit IVPUSH PRN PRN PRN Reason: Heparin Last Admin: 02/14/19 11:21 Dose: 5,000 unit Meropenem 500 mg/ Dextrose 100 mls @ 200 mls/hr IVPB Q12H [facility]ANCE Last Admin: 02/17/19 11:42 Dose: 200 mls/hr Heparin Sodium (Porcine) 25, (000 unit/ Sodium Chloride) 500 mls @ 20 mls/hr IV TITR LANCE; Protocol Last Admin: 02/16/19 14:22 Dose: Not Given Insulin Aspart (Novolog Vial Sliding Scale -) 1 vial SQ ACHS LANCE; Protocol Last Admin: 02/17/19 07:17 Dose: Not Given Metoprolol Tartrate (Lopressor Injection -) 5 mg IVPUSH Q4H PRN PRN Reason: TACHYCARDIA Last Admin: 02/14/19 11:37 Dose: 5 mg Nystatin (Mycostatin Cream -) 1 applic TP Q6HPO [facility] Last Admin: 02/17/19 11:48 Dose: 1 applic Pantoprazole Sodium (Protonix Iv) 40 mg IVPUSH DAILY [facility] Last Admin: 02/17/19 10:03 Dose: 40 mg Gen: Awake and alert, NAD on NC O2 Heart: RRR Lung: decreased breath sounds at the bases Abd: soft, nontender Ext: + edema, less erythema, legs wrapped Laboratory Results - last 24 hr 02/16/19 02/16/19 02/16/19 12:34 18:04 21:39 WBC RBC Hgb Hct MCV MCH MCHC RDW Plt Count MPV PTT (Actin FS) Sodium Potassium Chloride Carbon Dioxide Anion Gap BUN Creatinine Est GFR (CKD-EPI)AfAm Est GFR (CKD-EPI)NonAf POC Glucometer 138 118 109 Random Glucose Calcium Phosphorus Magnesium Total Bilirubin AST ALT Alkaline Phosphatase Total Protein Albumin 02/17/19 02/17/19 02/17/19 05:40 05:40 05:40 WBC 9.1 RBC 3.32 L Hgb 9.5 L Hct 29.1 L MCV 87.8 MCH 28.8 MCHC 32.8 RDW 15.3 Plt Count 310 D MPV 9.5 PTT (Actin FS) 49.8 H Sodium 146 H Potassium 3.5 Chloride 105 Carbon Dioxide 32 Anion Gap 8 BUN 17.5 Creatinine 0.9 Est GFR (CKD-EPI)AfAm 83.43 Est GFR (CKD-EPI)NonAf 71.98 POC Glucometer Random Glucose 112 H Calcium 9.1 Phosphorus 3.0 Magnesium 1.8 Total Bilirubin 0.6 AST 31 ALT 35 Alkaline Phosphatase 116 Total Protein 6.3 L Albumin 2.3 L 02/17/19 06:16 WBC RBC Hgb Hct MCV MCH MCHC RDW Plt Count MPV PTT (Actin FS) Sodium Potassium Chloride Carbon Dioxide Anion Gap BUN Creatinine Est GFR (CKD-EPI)AfAm Est GFR (CKD-EPI)NonAf POC Glucometer 114 Random Glucose Calcium Phosphorus Magnesium Total Bilirubin AST ALT Alkaline Phosphatase Total Protein Albumin ASSESSMENT AND PLAN: Acute Respiratory Failure Cellulitis/Infected Leg Ulcers Septic Shock Acute Kidney Injury requiring emergent HD Hyperkalemia improved Lactic Acidosis Atrial Fibrillation HTN DM Hyperlipidemia Anemia - NC O2 as tolerated - NIPPV support QHS and as needed - continue antibiotics - wound care - monitor urine output, creatinine - replete lytes - rate control - continue anticoagulation - DVT/GI prophylaxis - 4W / 4S monitoring Dr Andre
--- NOTE | 2019-02-17 13:08 | PN ---
Physical Exam: SUBJECTIVE: Patient seen and examined at bedside. Pt doing much better, extubated on NC, satting well. Pt hungry and AO X3. OBJECTIVE: Vital Signs Period Temp Pulse Resp BP Sys/Callahan Pulse Ox Last 24 Hr 98.0 F-100.5 F 82-108 17-26 92-127/60-85 96-99 GENERAL: The patient is awake, alert, and fully oriented, in no acute distress. NECK: supple. LUNGS: Breath sounds equal, decreased breath sounds b/l. HEART: Regular rate and rhythm, S1, S2 without murmur, rub or gallop. ABDOMEN: Soft, nontender, nondistended EXTREMITIES: 2+ pulses, warm, well-perfused, no edema. PSYCH: Normal mood, normal affect. SKIN: Warm, dry, no rashes or lesions noted Laboratory Results - last 24 hr 02/16/19 02/16/19 02/17/19 18:04 21:39 05:40 WBC RBC Hgb Hct MCV MCH MCHC RDW Plt Count MPV PTT (Actin FS) 49.8 H Sodium Potassium Chloride Carbon Dioxide Anion Gap BUN Creatinine Est GFR (CKD-EPI)AfAm Est GFR (CKD-EPI)NonAf POC Glucometer 118 109 Random Glucose Calcium Phosphorus Magnesium Total Bilirubin AST ALT Alkaline Phosphatase Total Protein Albumin 02/17/19 02/17/19 02/17/19 05:40 05:40 06:16 WBC 9.1 RBC 3.32 L Hgb 9.5 L Hct 29.1 L MCV 87.8 MCH 28.8 MCHC 32.8 RDW 15.3 Plt Count 310 D MPV 9.5 PTT (Actin FS) Sodium 146 H Potassium 3.5 Chloride 105 Carbon Dioxide 32 Anion Gap 8 BUN 17.5 Creatinine 0.9 Est GFR (CKD-EPI)AfAm 83.43 Est GFR (CKD-EPI)NonAf 71.98 POC Glucometer 114 Random Glucose 112 H Calcium 9.1 Phosphorus 3.0 Magnesium 1.8 Total Bilirubin 0.6 AST 31 ALT 35 Alkaline Phosphatase 116 Total Protein 6.3 L Albumin 2.3 L 02/17/19 11:52 WBC RBC Hgb Hct MCV MCH MCHC RDW Plt Count MPV PTT (Actin FS) Sodium Potassium Chloride Carbon Dioxide Anion Gap BUN Creatinine Est GFR (CKD-EPI)AfAm Est GFR (CKD-EPI)NonAf POC Glucometer 141 Random Glucose Calcium Phosphorus Magnesium Total Bilirubin AST ALT Alkaline Phosphatase Total Protein Albumin Active Medications Generic Name Dose Route Start Last Admin Trade Name Freq PRN Reason Stop Dose Admin Acetaminophen 1,000 mg 02/15/19 18:10 02/15/19 18:22 Ofirmev Injection - IVPB 1,000 mg Q6H PRN Administration FEVER Budesonide/Formoterol Fumarate 2 puff 02/08/19 10:00 02/17/19 10:00 Symbicort 80/4.5mcg - IH 2 puff BID LANCE Administration Chlorhexidine Gluconate 1 applic 02/08/19 22:00 02/16/19 22:01 Hibiclens For Decolonization - TP 1 applic HS LANCE Administration Chlorhexidine Gluconate 15 ml 02/11/19 12:15 02/17/19 10:04 Peridex - MM Not Given BID LANCE Furosemide 40 mg 02/15/19 10:00 02/17/19 10:04 Lasix Injection - IVPUSH 40 mg BID LANCE Administration Gabapentin 300 mg 02/08/19 10:00 02/17/19 10:03 Neurontin - PO 300 mg DAILY LANCE Administration Heparin Sodium (Porcine) 1,000 unit 02/10/19 12:02 02/13/19 16:02 Heparin - IVPUSH 1,000 unit PRN PRN Administration Heparin Heparin Sodium (Porcine) 5,000 unit 02/10/19 12:02 02/14/19 11:21 Heparin - IVPUSH 5,000 unit PRN PRN Administration Heparin Meropenem 500 mg/ Dextrose 100 mls @ 200 mls/hr 02/08/19 22:00 02/17/19 11:42 IVPB 200 mls/hr Q12H LANCE Administration Heparin Sodium (Porcine) 25, 500 mls @ 20 mls/hr 02/10/19 12:30 02/16/19 14: 22 000 unit/ Sodium Chloride IV Not Given TITR [facility] Protocol 1,000 UNIT/HR Insulin Aspart 1 vial 02/08/19 11:00 02/17/19 11:57 Novolog Vial Sliding Scale - SQ Not Given ACHS [facility] Protocol Metoprolol Tartrate 5 mg 02/11/19 22:22 02/14/19 11:37 Lopressor Injection - IVPUSH 5 mg Q4H PRN Administration TACHYCARDIA Nystatin 1 applic 02/08/19 12:00 02/17/19 11:48 Mycostatin Cream - TP 1 applic Q6HPO LANCE Administration Pantoprazole Sodium 40 mg 02/09/19 16:45 02/17/19 10:03 Protonix Iv IVPUSH 40 mg DAILY LANCE Administration ASSESSMENT/PLAN: 53F PMH B/L LE chronic Venous stasis ulcerations, Chronic Afib on AC, HTN, poorly controlled T2DM, Dyslipedemia, Bipolar disorder, CKD (non-compliant with medications) BIBEMS to [facility] for altered mental status. ICU admission for emergent HD. Neuro - currently off sedation - weaned off sedation, will monitor - pt AO X3 Respiratory - continue symbicort - weaned off vent, placed on NC satting 100%, continue to monitor - maintain SaO2>90% - PT consulted will try to get pt out of bed. RENAL: Acute Renal failure with emergent need for dialysis - Johnson 3200 cc - continuing to monitor U.O./lytes - renal function is improved, no more HD at this time CARDIO - EKG w/ a-fib w/ RVR/septic shock on pressors - off pressors - Tele monitoring - amio gtt if hr >150s - on heparin gtt. ID -> Sepsis likely 2/2 LE Wound Ulcers/AMS/Toxic metabolic encephalopathy/ Uremia - Infected b/l LE ulcers/cellulitis, no abscess seen on exam - Urine and Blood Cultures negative, wound culture LLE: N.L.F. gram negative bacilli, MRSA, group D strep or enterococcus, RLE: L.F. G- bacilli, N.L.F, group d strep or enterococcus. - vanco level 12.4 today, will give one dose of vanco per DR. De Leon - c/w meropenem 500 mg BID FEN Monitor lytes low Na, diabetic diet off fluids PPx: DVT: continue heparin gtt Hb today higher than yesterday, no signs of acute blood loss, will continue to monitor. GI: pantoprazole 40 IVP Visit type - Emergency Visit Emergency Visit: Yes ED Registration Date: 02/08/19 Care time: The patient presented to the Emergency Department on the above date and was hospitalized for further evaluation of their emergent condition. - New Patient This patient is new to me today: No - Critical Care Critical Care patient: Yes Total Critical Care Time (in minutes): 40 Critical Care Statement: The care of this patient involved high complexity decision making to prevent further life threatening deterioration of the patient 's condition and/or to evaluate & treat vital organ system(s) failure or risk of failure. - Discharge Referral Referred to [facility] No
--- NOTE | 2019-02-17 13:20 | CONSULT ---
Admitting History and Physical - Primary Care Physician PCP: Onur Maxwell - Admission History of Present Illness: Per EMR 53 year old female chronic atrial fibrillation on eliquis, hypertension, diabetes mellitus, hyperlipidemia, chronic kidney disease, chronic bilateral leg ulcers admitted for altered mental status. She was noted to have malodorous dressings on her legs. She was in acute renal failure in septic shock 2/2 infected lower extremity wound ulcers. Required intubation and emergent hemodialysis in the ICU. Extubated yesterday History Source: Medical Record Limitations to Obtaining History: Clinical Condition - Past Medical History Cardiovascular: Yes: AFIB, HTN Pulmonary: Yes: Asthma Gastrointestinal: Yes: Other (gallstones) Hepatobiliary: Yes: Cholelithiasis (passed without surgery), Other (fatty liver) Renal/: Yes: Renal Inusuff Heme/Onc: No: Anemia, B12 Deficiency, Bleeding Disorder, Cancer, Current Chemotherapy, Current Radiation Therapy, Hemochromatosis, Hypercoaguable State, Myeloproliferative Synd, Sickle Cell Disease, Sickle Cell Trait, Thrombocytopenia, Other Infectious Disease: Yes: Other (LE cellulitis) Psych: Yes: Bipolar Endocrine: Yes: Diabetes Mellitus Dermatology: Yes: Cellulitis (b/l LE with ulcerations) - Smoking History Smoking history: Former smoker Have you smoked in the past 12 months: No Aproximately how many cigarettes per day: 0 If you are a former smoker, when did you quit?: quit age 13 - Alcohol/Substance Use Hx Alcohol Use: No History of Substance Use: reports: Prescription (narcotics) - Social History ADL: Independent 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 I needed to cover her eyes to break her gaze, to refocus on the food.) Ability to Follow Directions: Fair Head/Neck Control: Fair - Hearing Hearing: Functional Hearing Aide: No With Patient: No Speech Evaluation - Communication Primary Language: MONGOLIAN - Speech Production Able to Make Needs Known: Yes: WNL Intelligibility: Yes: WNL - Speech Characteristics Voice Loudness: Normal Voice Pitch: Yes: Normal Voice Phonatory-based Quality: Yes: Dysphonia (mild) Speech Clarity: < 100% Nasal Resonance: Normal Articulation: Yes: Imprecise (mild) - Language/Auditory Comprehension Follows: Yes: 1 Stage Simple Commands - Language/Verbal Expression Functional Communication Status: Yes: Mildly Impaired - Swallow Evaluation/Bedside Assessment Current Nutritional Intake: Regular (downgraded to soft by RD.), Thin Liquids Oral Secretions: Yes: WFL Dentition: Yes: Adequate, Missing Teeth Facial Symmetry at Rest: Symmetrical Against Resistance Opening: Weak Against Resistance Closing: Weak Pucker Lips: Normal Smile: Normal Lingual Movement: Symmetric Lingual Speed of Movement: Reduced Lingual Movement Strgth Against Opposition: Reduced Lingual Movement Characteristics: Normal Velopharyngeal Movement: Normal Laryngeal Movement: Able to Palpate, Labored,delay initiation Rate of Intake: WFL Bolus Size: WFL Chewing: WFL (limited, missing dentition) Oral Prep Time: WFL A-P Transit: WFL Timing of Swallow: Delayed Coughing/Throat Clear: No Change in Voice: No Recommendations - Speech Evaluation, Impression/Plan Impression: Tangential, distractible, completed reg diet/thin liquids without reported difficulty. - Disposition Discharge to: To be Determined - Dysphagia Impressions/Plan Dysphagia Impressions: Mild Impairment *Silent aspiration: cannot be R/O at bedside Dysphagia Treatment Plan: Small Bites, Chin Tuck/Down, Facilitative Feeding, Safe Rate, Elevate HOB during feed - Recommendations Diet Consistency: Other (soft,reg) Medication Administration: Whole with water Liquids: Thin Liquids
--- NOTE | 2019-02-17 13:38 | PN ---
Progress Note, Physician History of Present Illness: extubated stable - Current Medication List Current Medications: Active Medications Acetaminophen (Ofirmev Injection -) 1,000 mg IVPB Q6H PRN PRN Reason: FEVER Last Admin: 02/15/19 18:22 Dose: 1,000 mg Budesonide/Formoterol Fumarate (Symbicort 80/4.5mcg -) 2 puff IH BID [facility] Last Admin: 02/17/19 10:00 Dose: 2 puff Chlorhexidine Gluconate (Hibiclens For Decolonization -) 1 applic TP HS [facility] Last Admin: 02/16/19 22:01 Dose: 1 applic Chlorhexidine Gluconate (Peridex -) 15 ml MM BID [facility] Last Admin: 02/17/19 10:04 Dose: Not Given Furosemide (Lasix Injection -) 40 mg IVPUSH BID [facility] Last Admin: 02/17/19 10:04 Dose: 40 mg Gabapentin (Neurontin -) 300 mg PO DAILY [facility] Last Admin: 02/17/19 10:03 Dose: 300 mg Heparin Sodium (Porcine) (Heparin -) 1,000 unit IVPUSH PRN PRN PRN Reason: Heparin Last Admin: 02/13/19 16:02 Dose: 1,000 unit Heparin Sodium (Porcine) (Heparin -) 5,000 unit IVPUSH PRN PRN PRN Reason: Heparin Last Admin: 02/14/19 11:21 Dose: 5,000 unit Meropenem 500 mg/ Dextrose 100 mls @ 200 mls/hr IVPB Q12H [facility] Last Admin: 02/17/19 11:42 Dose: 200 mls/hr Heparin Sodium (Porcine) 25, (000 unit/ Sodium Chloride) 500 mls @ 20 mls/hr IV TITR LANCE; Protocol Last Admin: 02/16/19 14:22 Dose: Not Given Insulin Aspart (Novolog Vial Sliding Scale -) 1 vial SQ ACHS [facility]; Protocol Last Admin: 02/17/19 11:57 Dose: Not Given Metoprolol Tartrate (Lopressor Injection -) 5 mg IVPUSH Q4H PRN PRN Reason: TACHYCARDIA Last Admin: 02/14/19 11:37 Dose: 5 mg Nystatin (Mycostatin Cream -) 1 applic TP Q6HPO [facility] Last Admin: 02/17/19 11:48 Dose: 1 applic Pantoprazole Sodium (Protonix Iv) 40 mg IVPUSH DAILY [facility] Last Admin: 02/17/19 10:03 Dose: 40 mg - Objective Vital Signs: Vital Signs Temperature 98.0 F 02/17/19 10:00 Pulse Rate 108 H 02/17/19 10:00 Respiratory Rate 20 02/17/19 10:00 Blood Pressure 102/66 02/17/19 10:00 O2 Sat by Pulse Oximetry (%) 97 02/17/19 04:15 Constitutional: Yes: No Distress, Calm Neck: Yes: Supple Cardiovascular: Yes: S1, S2 Respiratory: Yes: Other (on face mask) Gastrointestinal: Yes: Normal Bowel Sounds, Soft Musculoskeletal: Yes: WNL Extremities: Yes: WNL Wound/Incision: Yes: Dressing Dry and Intact Neurological: Yes: Alert Labs: CBC, BMP 02/17/19 05:40 02/17/19 05:40 INR, PTT INR 1.71 (0.83-1.09) H 02/09/19 05:00 Fibrinogen 474.0 mg/dL (238-498) 02/11/19 08:58 Assessment/Plan Problem List - Problems (1) Bilateral leg ulcer Code(s): L97.919 - NON-PRS CHRONIC ULC UNSP PRT OF R LOW LEG W UNSP SEVERITY; L97.929 - NON-PRS CHRONIC ULC UNSP PRT OF L LOW LEG W UNSP SEVERITY (2) Sepsis Code(s): A41.9 - SEPSIS, UNSPECIFIED ORGANISM Qualifiers: Sepsis type: sepsis due to unspecified organism Sepsis acute organ dysfunction status: unspecified Qualified Code(s): A41.9 - Sepsis, unspecified organism (3) ARF (acute renal failure) Code(s): N17.9 - ACUTE KIDNEY FAILURE, UNSPECIFIED (4) Afib Code(s): I48.91 - UNSPECIFIED ATRIAL FIBRILLATION Qualifiers: Atrial fibrillation type: paroxysmal Qualified Code(s): I48.0 - Paroxysmal atrial fibrillation (5) Altered mental status Code(s): R41.82 - ALTERED MENTAL STATUS, UNSPECIFIED (6) Cellulitis Code(s): L03.90 - CELLULITIS, UNSPECIFIED Qualifiers: Site of cellulitis: unspecified site Qualified Code(s): L03.90 - Cellulitis , unspecified (7) DM2 (diabetes mellitus, type 2) Code(s): E11.9 - TYPE 2 DIABETES MELLITUS WITHOUT COMPLICATIONS Qualifiers: Diabetes mellitus longterm insulin use: with long wall mining machine helper use Diabetes mellitus complication detail: with other circulatory complications (8) Encephalopathy due to metabolic factor or toxin Code(s): IGJ8089 - (9) HTN (hypertension) Code(s): I10 - ESSENTIAL (PRIMARY) HYPERTENSION (10) Hyperkalemia Code(s): E87.5 - HYPERKALEMIA (11) Lactic acidosis Code(s): E87.2 - ACIDOSIS (12) Leukocytosis Code(s): D72.829 - ELEVATED WHITE BLOOD CELL COUNT, UNSPECIFIED (13) Metabolic acidosis Code(s): E87.2 - ACIDOSIS (14) Morbid obesity Code(s): E66.01 - MORBID (SEVERE) OBESITY DUE TO EXCESS CALORIES (15) Severe sepsis Code(s): A41.9 - SEPSIS, UNSPECIFIED ORGANISM; R65.20 - SEVERE SEPSIS WITHOUT SEPTIC SHOCK (16) Venous stasis Code(s): I87.8 - OTHER SPECIFIED DISORDERS OF VEINS Assessment/Plan 53 y.o. female with PMH of chronic b/l LE ulcers, cellulitis, T2 DM, HTN, HLD, CKD, Anemia, GERD, obesity, AFIB, Asthma, and bipolar disorder brought to the ER by her brother for lethargy/AMS for the last several days noted to be in ARF , with leukocytosis, and b/l LE ulcers with malodorous drainage/erythema/ warmth. Currently receiving HD and hypotensive on Vasopressors Shock possibly from Sepsis-- on vasopressors AMS/Toxic metabolic encephalopathy/Uremia Infected b/l LE ulcers/cellulitis ARF on CKD - emergent HD started Hyperkalemia Acidosis Uremia Leukocytosis Lactic acidosis AFIB DM Morbid Obesity Asthma Bipolar d.o. HTN HLD continue abx will check vanco rest continue current mgmt wound care rest as per icu cc 40 min
[2019-02-17] MEDS ORDERED: VANCOMYCIN 500 MG in DEXTROSE 5%-WATER - 100 ML IVPB ONE (13:41)
--- NOTE | 2019-02-17 13:41 | PN ---
Progress Note, Physician History of Present Illness: patient stable looks much better awake and alert on nasal canula - Current Medication List Current Medications: Active Medications Acetaminophen (Ofirmev Injection -) 1,000 mg IVPB Q6H PRN PRN Reason: FEVER Last Admin: 02/15/19 18:22 Dose: 1,000 mg Budesonide/Formoterol Fumarate (Symbicort 80/4.5mcg -) 2 puff IH BID [facility] Last Admin: 02/17/19 10:00 Dose: 2 puff Chlorhexidine Gluconate (Hibiclens For Decolonization -) 1 applic TP HS [facility] Last Admin: 02/16/19 22:01 Dose: 1 applic Chlorhexidine Gluconate (Peridex -) 15 ml MM BID [facility] Last Admin: 02/17/19 10:04 Dose: Not Given Furosemide (Lasix Injection -) 40 mg IVPUSH BID [facility] Last Admin: 02/17/19 10:04 Dose: 40 mg Gabapentin (Neurontin -) 300 mg PO DAILY [facility] Last Admin: 02/17/19 10:03 Dose: 300 mg Heparin Sodium (Porcine) (Heparin -) 1,000 unit IVPUSH PRN PRN PRN Reason: Heparin Last Admin: 02/13/19 16:02 Dose: 1,000 unit Heparin Sodium (Porcine) (Heparin -) 5,000 unit IVPUSH PRN PRN PRN Reason: Heparin Last Admin: 02/14/19 11:21 Dose: 5,000 unit Meropenem 500 mg/ Dextrose 100 mls @ 200 mls/hr IVPB Q12H [facility] Last Admin: 02/17/19 11:42 Dose: 200 mls/hr Heparin Sodium (Porcine) 25, (000 unit/ Sodium Chloride) 500 mls @ 20 mls/hr IV TITR [facility]; Protocol Last Admin: 02/16/19 14:22 Dose: Not Given Insulin Aspart (Novolog Vial Sliding Scale -) 1 vial SQ ACHS [facility]; Protocol Last Admin: 02/17/19 11:57 Dose: Not Given Metoprolol Tartrate (Lopressor Injection -) 5 mg IVPUSH Q4H PRN PRN Reason: TACHYCARDIA Last Admin: 02/14/19 11:37 Dose: 5 mg Nystatin (Mycostatin Cream -) 1 applic TP Q6HPO [facility] Last Admin: 02/17/19 11:48 Dose: 1 applic Pantoprazole Sodium (Protonix Iv) 40 mg IVPUSH DAILY [facility] Last Admin: 02/17/19 10:03 Dose: 40 mg - Objective Vital Signs: Vital Signs Temperature 98.0 F 02/17/19 10:00 Pulse Rate 108 H 02/17/19 10:00 Respiratory Rate 20 02/17/19 10:00 Blood Pressure 102/66 02/17/19 10:00 O2 Sat by Pulse Oximetry (%) 97 02/17/19 04:15 Constitutional: Yes: No Distress, Calm Cardiovascular: Yes: S1, S2 Respiratory: Yes: Regular, CTA Bilaterally, On Nasal O2 Gastrointestinal: Yes: Normal Bowel Sounds, Soft Musculoskeletal: Yes: WNL Extremities: Yes: Other Wound/Incision: Yes: Dressing Dry and Intact Neurological: Yes: Alert, Oriented Psychiatric: Yes: Alert, Oriented Labs: CBC, BMP 02/17/19 05:40 02/17/19 05:40 INR, PTT INR 1.71 (0.83-1.09) H 02/09/19 05:00 Fibrinogen 474.0 mg/dL (238-498) 02/11/19 08:58 - ....Imaging Chest X-ray: Report Reviewed, Image Reviewed Assessment/Plan Problem List - Problems (1) Bilateral leg ulcer Code(s): L97.919 - NON-PRS CHRONIC ULC UNSP PRT OF R LOW LEG W UNSP SEVERITY; L97.929 - NON-PRS CHRONIC ULC UNSP PRT OF L LOW LEG W UNSP SEVERITY (2) Sepsis Code(s): A41.9 - SEPSIS, UNSPECIFIED ORGANISM Qualifiers: Sepsis type: sepsis due to unspecified organism Sepsis acute organ dysfunction status: unspecified Qualified Code(s): A41.9 - Sepsis, unspecified organism (3) ARF (acute renal failure) Code(s): N17.9 - ACUTE KIDNEY FAILURE, UNSPECIFIED (4) Afib Code(s): I48.91 - UNSPECIFIED ATRIAL FIBRILLATION Qualifiers: Atrial fibrillation type: paroxysmal Qualified Code(s): I48.0 - Paroxysmal atrial fibrillation (5) Altered mental status Code(s): R41.82 - ALTERED MENTAL STATUS, UNSPECIFIED (6) Cellulitis Code(s): L03.90 - CELLULITIS, UNSPECIFIED Qualifiers: Site of cellulitis: unspecified site Qualified Code(s): L03.90 - Cellulitis , unspecified (7) DM2 (diabetes mellitus, type 2) Code(s): E11.9 - TYPE 2 DIABETES MELLITUS WITHOUT COMPLICATIONS Qualifiers: Diabetes mellitus keno terminal operator insulin use: with alf use Diabetes mellitus complication detail: with other circulatory complications (8) Encephalopathy due to metabolic factor or toxin Code(s): BMP4066 - (9) HTN (hypertension) Code(s): I10 - ESSENTIAL (PRIMARY) HYPERTENSION (10) Hyperkalemia Code(s): E87.5 - HYPERKALEMIA (11) Lactic acidosis Code(s): E87.2 - ACIDOSIS (12) Leukocytosis Code(s): D72.829 - ELEVATED WHITE BLOOD CELL COUNT, UNSPECIFIED (13) Metabolic acidosis Code(s): E87.2 - ACIDOSIS (14) Morbid obesity Code(s): E66.01 - MORBID (SEVERE) OBESITY DUE TO EXCESS CALORIES (15) Severe sepsis Code(s): A41.9 - SEPSIS, UNSPECIFIED ORGANISM; R65.20 - SEVERE SEPSIS WITHOUT SEPTIC SHOCK (16) Venous stasis Code(s): I87.8 - OTHER SPECIFIED DISORDERS OF VEINS Assessment/Plan 53 y.o. female with PMH of chronic b/l LE ulcers, cellulitis, T2 DM, HTN, HLD, CKD, Anemia, GERD, obesity, AFIB, Asthma, and bipolar disorder brought to the ER by her brother for lethargy/AMS for the last several days noted to be in ARF , with leukocytosis, and b/l LE ulcers with malodorous drainage/erythema/ warmth. Currently receiving HD and hypotensive on Vasopressors Shock possibly from Sepsis-- on vasopressors AMS/Toxic metabolic encephalopathy/Uremia Infected b/l LE ulcers/cellulitis ARF on CKD - emergent HD started Hyperkalemia Acidosis Uremia Leukocytosis Lactic acidosis AFIB DM Morbid Obesity Asthma Bipolar d.o. HTN HLD continue abx will give one vanco dose wound care rest as per icu improving resp support cc 40 min
--- NOTE | 2019-02-17 13:54 | PN ---
Progress Note, Physician History of Present Illness: Pt seen and examined at bedside. She is awake and alert. She says she feels hungry. - Current Medication List Current Medications: Active Medications Acetaminophen (Ofirmev Injection -) 1,000 mg IVPB Q6H PRN PRN Reason: FEVER Last Admin: 02/15/19 18:22 Dose: 1,000 mg Budesonide/Formoterol Fumarate (Symbicort 80/4.5mcg -) 2 puff IH BID [facility] Last Admin: 02/17/19 10:00 Dose: 2 puff Chlorhexidine Gluconate (Hibiclens For Decolonization -) 1 applic TP HS [facility] Last Admin: 02/16/19 22:01 Dose: 1 applic Chlorhexidine Gluconate (Peridex -) 15 ml MM BID [facility] Last Admin: 02/17/19 10:04 Dose: Not Given Furosemide (Lasix Injection -) 40 mg IVPUSH BID [facility] Last Admin: 02/17/19 10:04 Dose: 40 mg Gabapentin (Neurontin -) 300 mg PO DAILY [facility] Last Admin: 02/17/19 10:03 Dose: 300 mg Heparin Sodium (Porcine) (Heparin -) 1,000 unit IVPUSH PRN PRN PRN Reason: Heparin Last Admin: 02/13/19 16:02 Dose: 1,000 unit Heparin Sodium (Porcine) (Heparin -) 5,000 unit IVPUSH PRN PRN PRN Reason: Heparin Last Admin: 02/14/19 11:21 Dose: 5,000 unit Meropenem 500 mg/ Dextrose 100 mls @ 200 mls/hr IVPB Q12H [facility] Last Admin: 02/17/19 11:42 Dose: 200 mls/hr Heparin Sodium (Porcine) 25, (000 unit/ Sodium Chloride) 500 mls @ 20 mls/hr IV TITR [facility]; Protocol Last Admin: 02/16/19 14:22 Dose: Not Given Vancomycin HCl 500 mg/ (Dextrose) 100 mls @ 100 mls/hr IVPB ONCE ONE; Protocol Stop: 02/17/19 14:40 Insulin Aspart (Novolog Vial Sliding Scale -) 1 vial SQ ACHS [facility]; Protocol Last Admin: 02/17/19 11:57 Dose: Not Given Metoprolol Tartrate (Lopressor Injection -) 5 mg IVPUSH Q4H PRN PRN Reason: TACHYCARDIA Last Admin: 02/14/19 11:37 Dose: 5 mg Nystatin (Mycostatin Cream -) 1 applic TP Q6HPO [facility] Last Admin: 02/17/19 11:48 Dose: 1 applic Pantoprazole Sodium (Protonix Iv) 40 mg IVPUSH DAILY [facility] Last Admin: 02/17/19 10:03 Dose: 40 mg - Objective Vital Signs: Vital Signs Temperature 98.0 F 02/17/19 10:00 Pulse Rate 108 H 02/17/19 10:00 Respiratory Rate 20 02/17/19 10:00 Blood Pressure 102/66 02/17/19 10:00 O2 Sat by Pulse Oximetry (%) 97 02/17/19 04:15 Constitutional: Yes: Calm Eyes: Yes: Conjunctiva Clear HENT: Yes: Atraumatic Neck: Yes: Supple Cardiovascular: Yes: S1, S2 Respiratory: Yes: CTA Bilaterally Gastrointestinal: Yes: Soft Genitourinary: Yes: Johnson Present Musculoskeletal: Yes: WNL Edema: No Neurological: Yes: Oriented Psychiatric: Yes: Oriented Labs: CBC, BMP 02/17/19 05:40 02/17/19 05:40 INR, PTT INR 1.71 (0.83-1.09) H 02/09/19 05:00 Fibrinogen 474.0 mg/dL (238-498) 02/11/19 08:58 Problem List - Problems (1) NOVA (acute kidney injury) Code(s): N17.9 - ACUTE KIDNEY FAILURE, UNSPECIFIED (2) Acute metabolic encephalopathy Code(s): G93.41 - METABOLIC ENCEPHALOPATHY (3) Sepsis Code(s): A41.9 - SEPSIS, UNSPECIFIED ORGANISM Qualifiers: Sepsis type: sepsis due to unspecified organism Sepsis acute organ dysfunction status: unspecified Qualified Code(s): A41.9 - Sepsis, unspecified organism (4) ARF (acute renal failure) Code(s): N17.9 - ACUTE KIDNEY FAILURE, UNSPECIFIED Assessment/Plan Current Medications Generic Name Dose Route Start Last Admin Trade Name Freq PRN Reason Stop Dose Admin Acetaminophen 1,000 mg 02/15/19 18:10 02/15/19 18:22 Ofirmev Injection - IVPB 1,000 mg Q6H PRN Administration FEVER Budesonide/Formoterol Fumarate 2 puff 02/08/19 10:00 02/17/19 10:00 Symbicort 80/4.5mcg - IH 2 puff BID [facility] Administration Chlorhexidine Gluconate 1 applic 02/08/19 22:00 02/16/19 22:01 Hibiclens For Decolonization - TP 1 applic HS [facility] Administration Chlorhexidine Gluconate 15 ml 02/11/19 12:15 02/17/19 10:04 Peridex - MM Not Given BID [facility] Furosemide 40 mg 02/15/19 10:00 02/17/19 10:04 Lasix Injection - IVPUSH 40 mg BID [facility] Administration Gabapentin 300 mg 02/08/19 10:00 02/17/19 10:03 Neurontin - PO 300 mg DAILY [facility] Administration Heparin Sodium (Porcine) 1,000 unit 02/10/19 12:02 02/13/19 16:02 Heparin - IVPUSH 1,000 unit PRN PRN Administration Heparin Heparin Sodium (Porcine) 5,000 unit 02/10/19 12:02 02/14/19 11:21 Heparin - IVPUSH 5,000 unit PRN PRN Administration Heparin Meropenem 500 mg/ Dextrose 100 mls @ 200 mls/hr 02/08/19 22:00 02/17/19 11:42 IVPB 200 mls/hr Q12H [facility] Administration Heparin Sodium (Porcine) 25, 500 mls @ 20 mls/hr 02/10/19 12:30 02/16/19 14: 22 000 unit/ Sodium Chloride IV Not Given TITR [facility] Protocol 1,000 UNIT/HR Vancomycin HCl 500 mg/ 100 mls @ 100 mls/hr 02/17/19 13:41 Dextrose IVPB 02/17/19 14:40 ONCE ONE Protocol Insulin Aspart 1 vial 02/08/19 11:00 02/17/19 11:57 Novolog Vial Sliding Scale - SQ Not Given ACHS [facility] Protocol Metoprolol Tartrate 5 mg 02/11/19 22:22 02/14/19 11:37 Lopressor Injection - IVPUSH 5 mg Q4H PRN Administration TACHYCARDIA Nystatin 1 applic 02/08/19 12:00 02/17/19 11:48 Mycostatin Cream - TP 1 applic Q6HPO [facility] Administration Pantoprazole Sodium 40 mg 02/09/19 16:45 02/17/19 10:03 Protonix Iv IVPUSH 40 mg DAILY [facility] Administration Impression 1. NOVA 2. hyperkalemia 3. obesity 4. DM 5. a-fib 6. HTN 7. chronic lower extremity ulcers 8. gastritis 9. sepsis 10. hyperglycemia 11. metabolic acidosis 12. acute resp failure 13. hypernatremia Plan - renal function stable - follow swallow eval - wound care - abx per primary team - monitor pulse ox
[2019-02-17] MEDS: HEPARIN - 25,000 UNIT in SODIUM CHLORIDE 495 ML IV SCH (15:30)
[2019-02-17] MEDS ORDERED: PT OWN MED DRAWER 7, Y5N ONE (20:30)
[2019-02-17] MEDS: CHLORHEXIDINE GLUCONATE 4% CLEANSER FOR DECOLONIZATION TP SCH (21:11)
[2019-02-17] MEDS ORDERED: RAPID SEQUENCE INTUBATION KIT NR ONE (22:52)
[2019-02-18] MEDS ORDERED: HEPARIN NA (PORCINE) 5,000 UNITS/ML 1ML VIAL IVPUSH PRN ×2 (05:01)
[2019-02-18] MEDS ORDERED: HEPARIN INFUSION - 25,000 UNITS/500 ML INFUS.BAG IVPB SCH (05:15)
[2019-02-18 06:09] LABS: BASO % 1.4 % (0-2.0); EOS % 4.9 % (0-4.5); HEMOGLOBIN 9.9 GM/dL (10.7-15.3); LYMPH % 15.1 % (8-40); MCH 28.7 pg (25.7-33.7); MCHC 33.1 g/dl (32.0-36.0); MEAN CELL VOLUME 86.6 fl (80-96); MEAN PLT VOLUME 9.6 fl (7.5-11.1); MONO % 7.5 % (3.8-10.2); NEUT % 71.1 % (42.8-82.8); PLATELET COUNT 342 K/MM3 (134-434); RBC 3.46 M/mm3 (3.60-5.2); RDW 15.6 % (11.6-15.6); WHITE BLOOD COUNT 8.2 K/mm3 (4.0-10.0)
[2019-02-18 06:26] LABS: ALBUMIN 2.5 g/dl (3.4-5.0); BILIRUBIN,TOTAL 0.6 mg/dL (0.2-1); BLOOD UREA NITROGEN 17.4 mg/dL (7-18); CALCIUM 9.4 mg/dL (8.5-10.1); MAGNESIUM 1.7 mg/dL (1.8-2.4); POTASSIUM 3.1 mmol/L (3.5-5.1); TOT PROT 6.6 g/dl (6.4-8.2)
[2019-02-18] MEDS: NYSTATIN 100,000 UNIT/GM TOPICAL CREAM 15 GM TUBE TP SCH ×3 (06:45→17:04)
[2019-02-18] MEDS: INSULIN SLIDING SCALE (NOVOLOG) 1 VIAL SQ SCH ×4 (06:45→22:12)
[2019-02-18] MEDS ORDERED: MAGNESIUM OXIDE 400 MG TABLET (FP) PO ONE (07:48)
[2019-02-18] MEDS ORDERED: MEROPENEM 500 MG VIAL (RESTRICTED TO ID) IVPB ONE ×2 (08:01→22:11)
[2019-02-18] MEDS ORDERED: DEXTROSE 5%-WATER 100 ML IVPB ONE ×2 (08:01→22:11)
[2019-02-18] MEDS: KCL 10 MEQ IVPB 10 MEQ/100 ML INFUS.BAG IVPB SCH ×3 (08:03→10:12)
[2019-02-18] MEDS: HEPARIN NA (PORCINE) 5,000 UNITS/ML 1ML VIAL IVPUSH PRN (08:04)
[2019-02-18] MEDS ORDERED: ARTIFICIAL TEARS (POLYVINYL ALCOHOL) OPTH DROPS OU ONE (09:30)
[2019-02-18] MEDS: FUROSEMIDE 40 MG/4 ML INJECTABLE VIAL IVPUSH SCH ×2 (10:11→22:05)
[2019-02-18] MEDS: MEROPENEM 500 MG in DEXTROSE 5%-WATER 100 ML IVPB SCH ×2 (10:12→22:12)
[2019-02-18] MEDS: BUDESONIDE/FORMETEROL FUMARATE 80/4.5 mcg INHALER IH SCH ×2 (10:12→22:17)
[2019-02-18] MEDS: GABAPENTIN 300 MG CAPSULE (FP) PO SCH (10:12)
[2019-02-18] MEDS ORDERED: PT OWN MED DRAWER 7, Y5N ONE ×2 (10:45→17:02)
--- NOTE | 2019-02-18 12:48 | PN ---
Teaching Attending Note Name of Resident: Hermes Lazcano ATTENDING PHYSICIAN STATEMENT I saw and evaluated the patient. I reviewed the resident's note and discussed the case with the resident. I agree with the resident's findings and plan as documented. SUBJECTIVE: Pt seen and examined in the ICU. c/o eye discomfort but no other complaints. Continues to have good urine output. No fevers recorded. OBJECTIVE: Vital Signs Period Temp Pulse Resp BP Sys/Callahan Pulse Ox Last 24 Hr 98.1 F-99.4 F 88-135 20-26 86-127/52-78 95-96 Intake & Output 02/15/19 02/16/19 02/17/19 02/18/19 23:59 23:59 23:59 23:59 Intake Total 6660 398 9088 892 Output Total 3200 5300 1600 Balance -1950 -4708 684 892 Weight 133.951 kg 133.951 kg 134.2 kg 125.101 kg Gen: NAD at rest Heart: RRR Lung: decreased breath sounds at the bases Abd: soft, nontender Ext: legs wrapped CBC, BMP 02/18/19 05:30 02/18/19 05:30 Active Medications Acetaminophen (Ofirmev Injection -) 1,000 mg IVPB Q6H PRN PRN Reason: FEVER Last Admin: 02/15/19 18:22 Dose: 1,000 mg Apixaban (Eliquis -) 5 mg PO BID [facility] Budesonide/Formoterol Fumarate (Symbicort 80/4.5mcg -) 2 puff IH BID [facility] Last Admin: 02/18/19 10:12 Dose: 2 puff Furosemide (Lasix Injection -) 40 mg IVPUSH BID [facility] Last Admin: 02/18/19 10:11 Dose: 40 mg Gabapentin (Neurontin -) 300 mg PO DAILY [facility] Last Admin: 02/18/19 10:12 Dose: 300 mg Heparin Sodium (Porcine) (Heparin -) 1,000 unit IVPUSH PRN PRN PRN Reason: Heparin Last Admin: 02/18/19 08:04 Dose: 1,000 unit Heparin Sodium (Porcine) (Heparin -) 5,000 unit IVPUSH PRN PRN PRN Reason: Heparin Last Admin: 02/14/19 11:21 Dose: 5,000 unit Meropenem 500 mg/ Dextrose 100 mls @ 200 mls/hr IVPB Q12H [facility] Last Admin: 02/18/19 10:12 Dose: 200 mls/hr Insulin Aspart (Novolog Vial Sliding Scale -) 1 vial SQ ACHS [facility]; Protocol Last Admin: 02/18/19 11:21 Dose: 4 units Metoprolol Tartrate (Lopressor Injection -) 5 mg IVPUSH Q4H PRN PRN Reason: TACHYCARDIA Last Admin: 02/14/19 11:37 Dose: 5 mg Nystatin (Mycostatin Cream -) 1 applic TP Q6HPO [facility] Last Admin: 02/18/19 12:42 Dose: 1 applic ASSESSMENT AND PLAN: s/p Acute Respiratory Failure Cellulitis/Infected Leg Ulcers Septic Shock resolving Acute Kidney Injury requiring emergent HD now improving Hyperkalemia improved Lactic Acidosis Atrial Fibrillation HTN DM Hyperlipidemia Anemia - continue antibiotics - wound care - monitor urine output, creatinine - replete lytes - O2 to keep Spo2 >90% - BiPAP at night and PRN during day - rate control - continue anticoagulation - DVT/GI prophylaxis - can monitor on floor
--- NOTE | 2019-02-18 12:55 | PN ---
Progress Note, COFFEE SAMPLER - Note Progress Note: Selected Entries 02/17/19 02/17/19 02/17/19 02:00 04:00 05:00 Temperature 100.4 F H 99.7 F H 99.4 F 02/17/19 02/17/19 02/17/19 10:00 14:00 18:00 Temperature 98.0 F 98.1 F 99.4 F 02/17/19 02/18/19 20:00 10:00 Temperature 98.5 F 98.4 F Laboratory Tests 02/15/19 02/16/19 02/17/19 05:30 05:00 05:40 WBC 12.3 H 11.4 H 9.1 02/18/19 05:30 WBC 8.2
[2019-02-18 13:03] LABS: PLATELET ESTIMATE ADEQUATE
--- NOTE | 2019-02-18 13:46 | PN ---
Physical Exam: SUBJECTIVE: Patient seen and examined at bedside. No acute events. Pt c/o itchy eyes. Gave pt some artificial tears and it improved. OBJECTIVE: Vital Signs Period Temp Pulse Resp BP Sys/Callahan Pulse Ox Last 24 Hr 98.1 F-99.4 F 88-135 20-26 86-127/52-78 95-96 GENERAL: The patient is awake, alert, and fully oriented, in no acute distress. EYES: extraocular movements intact, sclera anicteric, conjunctiva erythematous. NECK: supple. LUNGS: Breath sounds equal, clear to auscultation bilaterally, no wheezes, no crackles, no accessory muscle use. HEART: Regular rate and rhythm, S1, S2 without murmur, rub or gallop. ABDOMEN: Soft, nontender, nondistended, no guarding, no rebound. PSYCH: Normal mood, normal affect. SKIN: b/l wrapped ulcers on LE's. Laboratory Results - last 24 hr 02/17/19 02/17/19 02/18/19 16:38 20:58 05:30 WBC 8.2 RBC 3.46 L Hgb 9.9 L Hct 30.0 L MCV 86.6 MCH 28.7 MCHC 33.1 RDW 15.6 Plt Count 342 MPV 9.6 Absolute Neuts (auto) 5.8 Neutrophils % 71.1 Neutrophils % (Manual) 67.4 Band Neutrophils % 2.0 Lymphocytes % 15.1 D Lymphocytes % (Manual) 14.3 Monocytes % 7.5 Monocytes % (Manual) 6 Eosinophils % 4.9 H Eosinophils % (Manual) 2.1 Basophils % 1.4 Basophils % (Manual) 5.1 H* D Myelocytes % (Man) 0 Promyelocytes % (Man) 0 Blast Cells % (Manual) 0 Nucleated RBC % 0 Metamyelocytes 2 D Platelet Estimate Adequate PTT (Actin FS) Sodium Potassium Chloride Carbon Dioxide Anion Gap BUN Creatinine Est GFR (CKD-EPI)AfAm Est GFR (CKD-EPI)NonAf POC Glucometer 140 150 Random Glucose Calcium Phosphorus Magnesium Total Bilirubin AST ALT Alkaline Phosphatase Total Protein Albumin 02/18/19 02/18/19 02/18/19 05:30 05:30 05:35 WBC RBC Hgb Hct MCV MCH MCHC RDW Plt Count MPV Absolute Neuts (auto) Neutrophils % Neutrophils % (Manual) Band Neutrophils % Lymphocytes % Lymphocytes % (Manual) Monocytes % Monocytes % (Manual) Eosinophils % Eosinophils % (Manual) Basophils % Basophils % (Manual) Myelocytes % (Man) Promyelocytes % (Man) Blast Cells % (Manual) Nucleated RBC % Metamyelocytes Platelet Estimate PTT (Actin FS) 45.7 H Sodium 143 Potassium 3.1 L Chloride 102 Carbon Dioxide 36 H Anion Gap 6 L BUN 17.4 Creatinine 1.0 Est GFR (CKD-EPI)AfAm 73.45 Est GFR (CKD-EPI)NonAf 63.37 POC Glucometer 118 Random Glucose 131 H Calcium 9.4 Phosphorus 3.0 Magnesium 1.7 L Total Bilirubin 0.6 AST 24 ALT 36 Alkaline Phosphatase 120 H Total Protein 6.6 Albumin 2.5 L 02/18/19 11:16 WBC RBC Hgb Hct MCV MCH MCHC RDW Plt Count MPV Absolute Neuts (auto) Neutrophils % Neutrophils % (Manual) Band Neutrophils % Lymphocytes % Lymphocytes % (Manual) Monocytes % Monocytes % (Manual) Eosinophils % Eosinophils % (Manual) Basophils % Basophils % (Manual) Myelocytes % (Man) Promyelocytes % (Man) Blast Cells % (Manual) Nucleated RBC % Metamyelocytes Platelet Estimate PTT (Actin FS) Sodium Potassium Chloride Carbon Dioxide Anion Gap BUN Creatinine Est GFR (CKD-EPI)AfAm Est GFR (CKD-EPI)NonAf POC Glucometer 155 Random Glucose Calcium Phosphorus Magnesium Total Bilirubin AST ALT Alkaline Phosphatase Total Protein Albumin Active Medications Generic Name Dose Route Start Last Admin Trade Name Freq PRN Reason Stop Dose Admin Acetaminophen 1,000 mg 02/15/19 18:10 02/15/19 18:22 Ofirmev Injection - IVPB 1,000 mg Q6H PRN Administration FEVER Apixaban 5 mg 02/18/19 22:00 Eliquis - PO BID [facility] Budesonide/Formoterol Fumarate 2 puff 02/08/19 10:00 02/18/19 10:12 Symbicort 80/4.5mcg - IH 2 puff BID [facility] Administration Furosemide 40 mg 02/15/19 10:00 02/18/19 10:11 Lasix Injection - IVPUSH 40 mg BID [facility] Administration Gabapentin 300 mg 02/08/19 10:00 02/18/19 10:12 Neurontin - PO 300 mg DAILY [facility] Administration Heparin Sodium (Porcine) 1,000 unit 02/10/19 12:02 02/18/19 08:04 Heparin - IVPUSH 1,000 unit PRN PRN Administration Heparin Heparin Sodium (Porcine) 5,000 unit 02/10/19 12:02 02/14/19 11:21 Heparin - IVPUSH 5,000 unit PRN PRN Administration Heparin Meropenem 500 mg/ Dextrose 100 mls @ 200 mls/hr 02/08/19 22:00 02/18/19 10:12 IVPB 200 mls/hr Q12H [facility] Administration Insulin Aspart 1 vial 02/08/19 11:00 02/18/19 11:21 Novolog Vial Sliding Scale - SQ 4 units ACHS [facility] Administration Protocol Metoprolol Tartrate 5 mg 02/11/19 22:22 02/14/19 11:37 Lopressor Injection - IVPUSH 5 mg Q4H PRN Administration TACHYCARDIA Nystatin 1 applic 02/08/19 12:00 02/18/19 12:42 Mycostatin Cream - TP 1 applic Q6HPO [facility] Administration ASSESSMENT/PLAN: 53F PMH B/L LE chronic Venous stasis ulcerations, Chronic Afib on AC, HTN, poorly controlled T2DM, Dyslipedemia, Bipolar disorder, CKD (non-compliant with medications) BIBEMS to [facility] for altered mental status. ICU admission for emergent HD. Neuro - currently off sedation - weaned off sedation, will monitor - pt AO X3 Respiratory - continue symbicort - weaned off vent, placed on NC satting 100%, continue to monitor - maintain SaO2>90% - PT consulted will try to get pt out of bed. RENAL: Acute Renal failure with emergent need for dialysis - Johnson 3200 cc - continuing to monitor U.O./lytes - renal function is improved, no need HD at this time CARDIO - EKG w/ a-fib w/ RVR/septic shock on pressors - off pressors - Tele monitoring - amio gtt if hr >150s - on heparin gtt. ID -> Sepsis likely 2/2 LE Wound Ulcers/AMS/Toxic metabolic encephalopathy/ Uremia - Infected b/l LE ulcers/cellulitis, no abscess seen on exam - Urine and Blood Cultures negative, wound culture LLE: N.L.F. gram negative bacilli, MRSA, group D strep or enterococcus, RLE: L.F. G- bacilli, N.L.F, group d strep or enterococcus. - vanco level 12.4 today, will give one dose of vanco per DR. De Leon and start doxy tomorrow FEN Monitor lytes low Na, diabetic diet off fluids PPx: DVT: continue heparin gtt Hb today higher than yesterday, no signs of acute blood loss, will continue to monitor. GI: pantoprazole 40 IVP Dispo: Patient is stable enough for discharge to [facility]. Thank you for this consultative opportunity. Visit type - Emergency Visit Emergency Visit: Yes ED Registration Date: 02/08/19 Care time: The patient presented to the Emergency Department on the above date and was hospitalized for further evaluation of their emergent condition. - New Patient This patient is new to me today: No - Critical Care Critical Care patient: Yes Total Critical Care Time (in minutes): 40 Critical Care Statement: The care of this patient involved high complexity decision making to prevent further life threatening deterioration of the patient 's condition and/or to evaluate & treat vital organ system(s) failure or risk of failure. - Discharge Referral Referred to [facility] Med [facility].: No
--- NOTE | 2019-02-18 13:49 | PN ---
Progress Note, Physician History of Present Illness: patient stable looks much better awake and alert on nasal canula - Current Medication List Current Medications: Active Medications Acetaminophen (Ofirmev Injection -) 1,000 mg IVPB Q6H PRN PRN Reason: FEVER Last Admin: 02/15/19 18:22 Dose: 1,000 mg Apixaban (Eliquis -) 5 mg PO BID [facility] Budesonide/Formoterol Fumarate (Symbicort 80/4.5mcg -) 2 puff IH BID [facility] Last Admin: 02/18/19 10:12 Dose: 2 puff Furosemide (Lasix Injection -) 40 mg IVPUSH BID [facility] Last Admin: 02/18/19 10:11 Dose: 40 mg Gabapentin (Neurontin -) 300 mg PO DAILY [facility] Last Admin: 02/18/19 10:12 Dose: 300 mg Heparin Sodium (Porcine) (Heparin -) 1,000 unit IVPUSH PRN PRN PRN Reason: Heparin Last Admin: 02/18/19 08:04 Dose: 1,000 unit Heparin Sodium (Porcine) (Heparin -) 5,000 unit IVPUSH PRN PRN PRN Reason: Heparin Last Admin: 02/14/19 11:21 Dose: 5,000 unit Meropenem 500 mg/ Dextrose 100 mls @ 200 mls/hr IVPB Q12H [facility] Last Admin: 02/18/19 10:12 Dose: 200 mls/hr Insulin Aspart (Novolog Vial Sliding Scale -) 1 vial SQ ACHS [facility]; Protocol Last Admin: 02/18/19 11:21 Dose: 4 units Metoprolol Tartrate (Lopressor Injection -) 5 mg IVPUSH Q4H PRN PRN Reason: TACHYCARDIA Last Admin: 02/14/19 11:37 Dose: 5 mg Nystatin (Mycostatin Cream -) 1 applic TP Q6HPO [facility] Last Admin: 02/18/19 12:42 Dose: 1 applic - Objective Vital Signs: Vital Signs Temperature 98.4 F 02/18/19 10:00 Pulse Rate 97 H 02/18/19 10:00 Respiratory Rate 20 02/18/19 10:00 Blood Pressure 113/73 02/18/19 10:00 O2 Sat by Pulse Oximetry (%) 96 02/18/19 09:00 Constitutional: Yes: No Distress, Calm, Obese Cardiovascular: Yes: S1, S2 Respiratory: Yes: Regular, CTA Bilaterally, On Nasal O2 Gastrointestinal: Yes: Normal Bowel Sounds, Soft Musculoskeletal: Yes: WNL Extremities: Yes: Other Wound/Incision: Yes: Dressing Dry and Intact Neurological: Yes: Alert, Oriented Psychiatric: Yes: Alert, Oriented Labs: CBC, BMP 02/18/19 05:30 02/18/19 05:30 INR, PTT INR 1.71 (0.83-1.09) H 02/09/19 05:00 Fibrinogen 474.0 mg/dL (238-498) 02/11/19 08:58 Assessment/Plan Problem List - Problems (1) Bilateral leg ulcer Code(s): L97.919 - NON-PRS CHRONIC ULC UNSP PRT OF R LOW LEG W UNSP SEVERITY; L97.929 - NON-PRS CHRONIC ULC UNSP PRT OF L LOW LEG W UNSP SEVERITY (2) Sepsis Code(s): A41.9 - SEPSIS, UNSPECIFIED ORGANISM Qualifiers: Sepsis type: sepsis due to unspecified organism Sepsis acute organ dysfunction status: unspecified Qualified Code(s): A41.9 - Sepsis, unspecified organism (3) ARF (acute renal failure) Code(s): N17.9 - ACUTE KIDNEY FAILURE, UNSPECIFIED (4) Afib Code(s): I48.91 - UNSPECIFIED ATRIAL FIBRILLATION Qualifiers: Atrial fibrillation type: paroxysmal Qualified Code(s): I48.0 - Paroxysmal atrial fibrillation (5) Altered mental status Code(s): R41.82 - ALTERED MENTAL STATUS, UNSPECIFIED (6) Cellulitis Code(s): L03.90 - CELLULITIS, UNSPECIFIED Qualifiers: Site of cellulitis: unspecified site Qualified Code(s): L03.90 - Cellulitis , unspecified (7) DM2 (diabetes mellitus, type 2) Code(s): E11.9 - TYPE 2 DIABETES MELLITUS WITHOUT COMPLICATIONS Qualifiers: Diabetes mellitus box toe cementer insulin use: with box toe cementer use Diabetes mellitus complication detail: with other circulatory complications (8) Encephalopathy due to metabolic factor or toxin Code(s): FBV3694 - (9) HTN (hypertension) Code(s): I10 - ESSENTIAL (PRIMARY) HYPERTENSION (10) Hyperkalemia Code(s): E87.5 - HYPERKALEMIA (11) Lactic acidosis Code(s): E87.2 - ACIDOSIS (12) Leukocytosis Code(s): D72.829 - ELEVATED WHITE BLOOD CELL COUNT, UNSPECIFIED (13) Metabolic acidosis Code(s): E87.2 - ACIDOSIS (14) Morbid obesity Code(s): E66.01 - MORBID (SEVERE) OBESITY DUE TO EXCESS CALORIES (15) Severe sepsis Code(s): A41.9 - SEPSIS, UNSPECIFIED ORGANISM; R65.20 - SEVERE SEPSIS WITHOUT SEPTIC SHOCK (16) Venous stasis Code(s): I87.8 - OTHER SPECIFIED DISORDERS OF VEINS Assessment/Plan 53 y.o. female with PMH of chronic b/l LE ulcers, cellulitis, T2 DM, HTN, HLD, CKD, Anemia, GERD, obesity, AFIB, Asthma, and bipolar disorder brought to the ER by her brother for lethargy/AMS for the last several days noted to be in ARF , with leukocytosis, and b/l LE ulcers with malodorous drainage/erythema/ warmth. Currently receiving HD and hypotensive on Vasopressors Shock possibly from Sepsis-- on vasopressors AMS/Toxic metabolic encephalopathy/Uremia Infected b/l LE ulcers/cellulitis ARF on CKD - emergent HD started Hyperkalemia Acidosis Uremia Leukocytosis Lactic acidosis AFIB DM Morbid Obesity Asthma Bipolar d.o. HTN HLD continue abx will give one vanco dose will start doxy from tomorrow wound care rest as per icu improving cc 40 min
[2019-02-18] MEDS ORDERED: VANCOMYCIN 500 MG in DEXTROSE 5%-WATER - 100 ML IVPB ONE (16:00)
--- NOTE | 2019-02-18 17:59 | PN ---
Progress Note, Physician Chief Complaint: AWAKE ALERT ON SUPPORT EVENTS AND NOTES REVIEWED - Current Medication List Current Medications: Active Medications Acetaminophen (Ofirmev Injection -) 1,000 mg IVPB Q6H PRN PRN Reason: FEVER Last Admin: 02/15/19 18:22 Dose: 1,000 mg Apixaban (Eliquis -) 5 mg PO BID [facility] Budesonide/Formoterol Fumarate (Symbicort 80/4.5mcg -) 2 puff IH BID [facility] Last Admin: 02/18/19 10:12 Dose: 2 puff Doxycycline Hyclate (Vibramycin -) 100 mg PO BID@1000,1800 [facility] Furosemide (Lasix Injection -) 40 mg IVPUSH BID [facility] Last Admin: 02/18/19 10:11 Dose: 40 mg Gabapentin (Neurontin -) 300 mg PO DAILY [facility] Last Admin: 02/18/19 10:12 Dose: 300 mg Heparin Sodium (Porcine) (Heparin -) 1,000 unit IVPUSH PRN PRN PRN Reason: Heparin Last Admin: 02/18/19 08:04 Dose: 1,000 unit Heparin Sodium (Porcine) (Heparin -) 5,000 unit IVPUSH PRN PRN PRN Reason: Heparin Last Admin: 02/14/19 11:21 Dose: 5,000 unit Meropenem 500 mg/ Dextrose 100 mls @ 200 mls/hr IVPB Q12H [facility] Last Admin: 02/18/19 10:12 Dose: 200 mls/hr Insulin Aspart (Novolog Vial Sliding Scale -) 1 vial SQ ACHS [facility]; Protocol Last Admin: 02/18/19 15:48 Dose: 2 units Metoprolol Tartrate (Lopressor Injection -) 5 mg IVPUSH Q4H PRN PRN Reason: TACHYCARDIA Last Admin: 02/14/19 11:37 Dose: 5 mg Nystatin (Mycostatin Cream -) 1 applic TP Q6HPO [facility] Last Admin: 02/18/19 17:04 Dose: 1 applic - Objective Vital Signs: Vital Signs Temperature 98.6 F 02/18/19 14:00 Pulse Rate 103 H 02/18/19 16:00 Respiratory Rate 22 H 02/18/19 16:00 Blood Pressure 90/62 02/18/19 16:00 O2 Sat by Pulse Oximetry (%) 96 02/18/19 09:00 Constitutional: Yes: Mild Distress Cardiovascular: Yes: Regular Rate and Rhythm Respiratory: Yes: Diminished, On Nasal O2 Gastrointestinal: Yes: Soft, Abdomen, Obese Genitourinary: Yes: Johnson Present Musculoskeletal: Yes: Muscle Weakness Extremities: Yes: Deformity Edema: Yes Edema: LLE: 2+, RLE: 2+ Integumentary: Yes: Erythema, Pressure Ulcer, Rash, Venous Stasis Changes Wound/Incision: Yes: Dressing Dry and Intact, Excoriated, Unapproximated Neurological: Yes: Paresthesia, Pre-Existing Deficit ...Motor Strength: LLE, RLE Psychiatric: Yes: Other Labs: CBC, BMP 02/18/19 05:30 02/18/19 05:30 INR, PTT INR 1.71 (0.83-1.09) H 02/09/19 05:00 Fibrinogen 474.0 mg/dL (238-498) 02/11/19 08:58 Problem List - Problems (1) Noncompliance Code(s): Z91.19 - PATIENT'S NONCOMPLIANCE W OTH MEDICAL TREATMENT AND REGIMEN (2) Uncontrolled diabetes mellitus Code(s): E11.65 - TYPE 2 DIABETES MELLITUS WITH HYPERGLYCEMIA (3) NOVA (acute kidney injury) Code(s): N17.9 - ACUTE KIDNEY FAILURE, UNSPECIFIED (4) Acute metabolic encephalopathy Code(s): G93.41 - METABOLIC ENCEPHALOPATHY (5) Bilateral leg ulcer Code(s): L97.919 - NON-PRS CHRONIC ULC UNSP PRT OF R LOW LEG W UNSP SEVERITY; L97.929 - NON-PRS CHRONIC ULC UNSP PRT OF L LOW LEG W UNSP SEVERITY Qualifiers: Non-pressure ulcer stage: limited to breakdown of skin Qualified Code(s): L97.911 - Non-pressure chronic ulcer of unspecified part of right lower leg limited to breakdown of skin; L97.921 - Non-pressure chronic ulcer of unspecified part of left lower leg limited to breakdown of skin (6) Sepsis Code(s): A41.9 - SEPSIS, UNSPECIFIED ORGANISM Qualifiers: Sepsis type: sepsis due to unspecified organism Sepsis acute organ dysfunction status: unspecified Qualified Code(s): A41.9 - Sepsis, unspecified organism (7) Abdominal lymphadenopathy Code(s): R59.0 - LOCALIZED ENLARGED LYMPH NODES (8) Afib Code(s): I48.91 - UNSPECIFIED ATRIAL FIBRILLATION Qualifiers: Atrial fibrillation type: paroxysmal Qualified Code(s): I48.0 - Paroxysmal atrial fibrillation (9) DM2 (diabetes mellitus, type 2) Code(s): E11.9 - TYPE 2 DIABETES MELLITUS WITHOUT COMPLICATIONS Qualifiers: Diabetes mellitus shelter insulin use: with shelter use Diabetes mellitus complication detail: with other circulatory complications (10) Morbid obesity Code(s): E66.01 - MORBID (SEVERE) OBESITY DUE TO EXCESS CALORIES (11) Sleep apnea Code(s): G47.30 - SLEEP APNEA, UNSPECIFIED Qualifiers: Sleep apnea type: idiopathic sleep related nonobstructive alveolar hypoventilation Qualified Code(s): G47.34 - Idiopathic sleep related nonobstructive alveolar hypoventilation (12) Toxic metabolic encephalopathy Code(s): G92 - TOXIC ENCEPHALOPATHY (13) Metabolic encephalopathy Code(s): G93.41 - METABOLIC ENCEPHALOPATHY (14) Severe sepsis Code(s): A41.9 - SEPSIS, UNSPECIFIED ORGANISM; R65.20 - SEVERE SEPSIS WITHOUT SEPTIC SHOCK Assessment/Plan IV ABX PER ID OOB TO CHAIR WOUND CARE VASX SX FOR LEG ULCERS DEBRIDED VS WOUND SOLUTIONS PT EVAL PATIENT HAS A HISTORY OF NON-COMPLIANCE WITH MEDICATIONS AND FOLLOW-UPS SANA DOES NOT FOLLOW UP IN MY OFFICE AND HER BROTHER IS AN OBSTACLE TO HER MEDICAL CARE. PSYCHIATRY AND NUTRITION EVAL ORDERED CEO AND PRESIDENT [employer] FOR ADULT PROTECTIVE SERVICES
[2019-02-18] MEDS: DOXYCYCLINE HYCLATE 100 MG CAPSULE PO SCH (18:32)
--- NOTE | 2019-02-18 18:45 | PN ---
Progress Note, Physician History of Present Illness: Pt seen and examined at bedside. She is awake and alert. She denies shortness of breath. - Current Medication List Current Medications: Active Medications Acetaminophen (Ofirmev Injection -) 1,000 mg IVPB Q6H PRN PRN Reason: FEVER Last Admin: 02/15/19 18:22 Dose: 1,000 mg Apixaban (Eliquis -) 5 mg PO BID [facility] Budesonide/Formoterol Fumarate (Symbicort 80/4.5mcg -) 2 puff IH BID [facility] Last Admin: 02/18/19 10:12 Dose: 2 puff Doxycycline Hyclate (Vibramycin -) 100 mg PO BID@1000,1800 [facility] Last Admin: 02/18/19 18:32 Dose: 100 mg Furosemide (Lasix Injection -) 40 mg IVPUSH BID [facility] Last Admin: 02/18/19 10:11 Dose: 40 mg Gabapentin (Neurontin -) 300 mg PO DAILY [facility] Last Admin: 02/18/19 10:12 Dose: 300 mg Heparin Sodium (Porcine) (Heparin -) 1,000 unit IVPUSH PRN PRN PRN Reason: Heparin Last Admin: 02/18/19 08:04 Dose: 1,000 unit Heparin Sodium (Porcine) (Heparin -) 5,000 unit IVPUSH PRN PRN PRN Reason: Heparin Last Admin: 02/14/19 11:21 Dose: 5,000 unit Meropenem 500 mg/ Dextrose 100 mls @ 200 mls/hr IVPB Q12H [facility] Last Admin: 02/18/19 10:12 Dose: 200 mls/hr Insulin Aspart (Novolog Vial Sliding Scale -) 1 vial SQ ACHS [facility]; Protocol Last Admin: 02/18/19 15:48 Dose: 2 units Metoprolol Tartrate (Lopressor Injection -) 5 mg IVPUSH Q4H PRN PRN Reason: TACHYCARDIA Last Admin: 02/14/19 11:37 Dose: 5 mg Nystatin (Mycostatin Cream -) 1 applic TP Q6HPO [facility] Last Admin: 02/18/19 17:04 Dose: 1 applic - Objective Vital Signs: Vital Signs Temperature 98.6 F 02/18/19 14:00 Pulse Rate 103 H 02/18/19 16:00 Respiratory Rate 22 H 02/18/19 16:00 Blood Pressure 90/62 02/18/19 16:00 O2 Sat by Pulse Oximetry (%) 96 02/18/19 09:00 Constitutional: Yes: Calm Eyes: Yes: Conjunctiva Clear HENT: Yes: Atraumatic Neck: Yes: Supple Cardiovascular: Yes: S1, S2 Respiratory: Yes: CTA Bilaterally Gastrointestinal: Yes: Soft, Abdomen, Obese Genitourinary: Yes: WNL Musculoskeletal: Yes: WNL Edema: Yes Edema: LLE: 1+, RLE: 1+ Neurological: Yes: Oriented Psychiatric: Yes: Oriented Labs: CBC, BMP 02/18/19 05:30 02/18/19 05:30 INR, PTT INR 1.71 (0.83-1.09) H 02/09/19 05:00 Fibrinogen 474.0 mg/dL (238-498) 02/11/19 08:58 Problem List - Problems (1) NOVA (acute kidney injury) Code(s): N17.9 - ACUTE KIDNEY FAILURE, UNSPECIFIED (2) Acute metabolic encephalopathy Code(s): G93.41 - METABOLIC ENCEPHALOPATHY (3) Sepsis Code(s): A41.9 - SEPSIS, UNSPECIFIED ORGANISM Qualifiers: Sepsis type: sepsis due to unspecified organism Sepsis acute organ dysfunction status: unspecified Qualified Code(s): A41.9 - Sepsis, unspecified organism (4) ARF (acute renal failure) Code(s): N17.9 - ACUTE KIDNEY FAILURE, UNSPECIFIED Assessment/Plan Current Medications Generic Name Dose Route Start Last Admin Trade Name Freq PRN Reason Stop Dose Admin Acetaminophen 1,000 mg 02/15/19 18:10 02/15/19 18:22 Ofirmev Injection - IVPB 1,000 mg Q6H PRN Administration FEVER Apixaban 5 mg 02/18/19 22:00 Eliquis - PO BID [facility] Budesonide/Formoterol Fumarate 2 puff 02/08/19 10:00 02/18/19 10:12 Symbicort 80/4.5mcg - I[facility] 2 puff BID [facility] Administration Doxycycline Hyclate 100 mg 02/18/19 18:00 02/18/19 18:32 Vibramycin - PO 100 mg BID@1000,1800 [facility] Administration Furosemide 40 mg 02/15/19 10:00 02/18/19 10:11 Lasix Injection - IVPUSH 40 mg BID [facility] Administration Gabapentin 300 mg 02/08/19 10:00 02/18/19 10:12 Neurontin - PO 300 mg DAILY [facility] Administration Heparin Sodium (Porcine) 1,000 unit 02/10/19 12:02 02/18/19 08:04 Heparin - IVPUSH 1,000 unit PRN PRN Administration Heparin Heparin Sodium (Porcine) 5,000 unit 02/10/19 12:02 02/14/19 11:21 Heparin - IVPUSH 5,000 unit PRN PRN Administration Heparin Meropenem 500 mg/ Dextrose 100 mls @ 200 mls/hr 02/08/19 22:00 02/18/19 10:12 IVPB 200 mls/hr Q12H [facility] Administration Insulin Aspart 1 vial 02/08/19 11:00 02/18/19 15:48 Novolog Vial Sliding Scale - SQ 2 units ACHS [facility] Administration Protocol Metoprolol Tartrate 5 mg 02/11/19 22:22 02/14/19 11:37 Lopressor Injection - IVPUSH 5 mg Q4H PRN Administration TACHYCARDIA Nystatin 1 applic 02/08/19 12:00 02/18/19 17:04 Mycostatin Cream - TP 1 applic Q6HPO [facility] Administration Impression 1. NOVA 2. hyperkalemia 3. obesity 4. DM 5. a-fib 6. HTN 7. chronic lower extremity ulcers 8. gastritis 9. sepsis 10. hyperglycemia 11. metabolic acidosis 12. acute resp failure 13. hypernatremia Plan - replace potassium - monitor lytes - pt started on diet - wound care - monitor pulse ox
[2019-02-18] MEDS ORDERED: APIXABAN 2.5 MG TABLET PO SCH (22:00)
[2019-02-18] MEDS: APIXABAN 5 MG TABLET PO SCH (22:09)
[2019-02-19] MEDS: NYSTATIN 100,000 UNIT/GM TOPICAL CREAM 15 GM TUBE TP SCH ×4 (00:36→17:20)
[2019-02-19] MEDS: INSULIN SLIDING SCALE (NOVOLOG) 1 VIAL SQ SCH ×3 (06:29→16:53)
[2019-02-19] MEDS ORDERED: MEROPENEM 500 MG VIAL (RESTRICTED TO ID) IVPB ONE ×2 (09:19→21:31)
[2019-02-19] MEDS ORDERED: DEXTROSE 5%-WATER 100 ML IVPB ONE ×2 (09:19→21:32)
[2019-02-19] MEDS ORDERED: PT OWN MED DRAWER 7, Y5N ONE ×2 (09:20→17:17)
[2019-02-19] MEDS: APIXABAN 5 MG TABLET PO SCH ×2 (09:22→22:00)
[2019-02-19] MEDS: GABAPENTIN 300 MG CAPSULE (FP) PO SCH (09:22)
[2019-02-19] MEDS: DOXYCYCLINE HYCLATE 100 MG CAPSULE PO SCH ×2 (09:22→17:19)
[2019-02-19] MEDS: BUDESONIDE/FORMETEROL FUMARATE 80/4.5 mcg INHALER IH SCH ×2 (09:23→22:07)
[2019-02-19] MEDS: MEROPENEM 500 MG in DEXTROSE 5%-WATER 100 ML IVPB SCH ×2 (09:24→22:01)
[2019-02-19 09:28] LABS: HEMATOCRIT 31.4 % (32.4-45.2); MCHC 31.9 g/dl (32.0-36.0); MEAN CELL VOLUME 87.6 fl (80-96); MEAN PLT VOLUME 9.4 fl (7.5-11.1); PLATELET COUNT 394 K/MM3 (134-434); RBC 3.58 M/mm3 (3.60-5.2); RDW 15.4 % (11.6-15.6); WHITE BLOOD COUNT 7.4 K/mm3 (4.0-10.0)
[2019-02-19 09:38] LABS: BLOOD UREA NITROGEN 20.6 mg/dL (7-18); CALCIUM 9.5 mg/dL (8.5-10.1); CREATININE 0.9 mg/dL (0.55-1.3); MAGNESIUM 1.8 mg/dL (1.8-2.4); PHOSPHOROUS 3.6 mg/dL (2.5-4.9); POTASSIUM 3.5 mmol/L (3.5-5.1)
--- NOTE | 2019-02-19 10:34 | PN ---
Progress Note, Physician Chief Complaint: ASLEEP NO ACUTE CHANGES SPEECH/SWALLOW EVAL PENDING - Current Medication List Current Medications: Active Medications Acetaminophen (Ofirmev Injection -) 1,000 mg IVPB Q6H PRN PRN Reason: FEVER Last Admin: 02/15/19 18:22 Dose: 1,000 mg Apixaban (Eliquis -) 5 mg PO BID [facility] Last Admin: 02/19/19 09:22 Dose: 5 mg Budesonide/Formoterol Fumarate (Symbicort 80/4.5mcg -) 2 puff IH BID [facility] Last Admin: 02/19/19 09:23 Dose: 2 puff Doxycycline Hyclate (Vibramycin -) 100 mg PO BID@1000,1800 [facility] Last Admin: 02/19/19 09:22 Dose: 100 mg Furosemide (Lasix Injection -) 40 mg IVPUSH BID [facility] Last Admin: 02/18/19 22:05 Dose: Not Given Gabapentin (Neurontin -) 300 mg PO DAILY [facility] Last Admin: 02/19/19 09:22 Dose: 300 mg Heparin Sodium (Porcine) (Heparin -) 1,000 unit IVPUSH PRN PRN PRN Reason: Heparin Last Admin: 02/18/19 08:04 Dose: 1,000 unit Heparin Sodium (Porcine) (Heparin -) 5,000 unit IVPUSH PRN PRN PRN Reason: Heparin Last Admin: 02/14/19 11:21 Dose: 5,000 unit Meropenem 500 mg/ Dextrose 100 mls @ 200 mls/hr IVPB Q12H [facility] Last Admin: 02/19/19 09:24 Dose: 200 mls/hr Insulin Aspart (Novolog Vial Sliding Scale -) 1 vial SQ ACHS [facility]; Protocol Last Admin: 02/19/19 06:29 Dose: 2 units Metoprolol Tartrate (Lopressor Injection -) 5 mg IVPUSH Q4H PRN PRN Reason: TACHYCARDIA Last Admin: 02/14/19 11:37 Dose: 5 mg Nystatin (Mycostatin Cream -) 1 applic TP Q6HPO [facility] Last Admin: 02/19/19 06:09 Dose: 1 applic - Objective Vital Signs: Vital Signs Temperature 98.3 F 02/19/19 06:00 Pulse Rate 98 H 02/19/19 08:00 Respiratory Rate 22 H 02/19/19 08:00 Blood Pressure 105/61 02/19/19 08:00 O2 Sat by Pulse Oximetry (%) 96 02/18/19 21:00 Constitutional: Yes: Mild Distress Eyes: Yes: WNL HENT: Yes: WNL Neck: Yes: WNL Cardiovascular: Yes: WNL Respiratory: Yes: Diminished, On Nasal O2 Gastrointestinal: Yes: Soft, Abdomen, Obese Genitourinary: Yes: Johnson Present, Incontinence Musculoskeletal: Yes: Muscle Weakness Edema: Yes Integumentary: Yes: Erythema, Pressure Ulcer, Rash, Skin Tear, Venous Stasis Changes Wound/Incision: Yes: Dressing Dry and Intact Neurological: Yes: Pre-Existing Deficit ...Motor Strength: LLE, RLE Psychiatric: Yes: Other Labs: CBC, BMP 02/19/19 08:45 02/19/19 08:45 INR, PTT INR 1.71 (0.83-1.09) H 02/09/19 05:00 Fibrinogen 474.0 mg/dL (238-498) 02/11/19 08:58 Problem List - Problems (1) Noncompliance Code(s): Z91.19 - PATIENT'S NONCOMPLIANCE W OTH MEDICAL TREATMENT AND REGIMEN (2) Uncontrolled diabetes mellitus Code(s): E11.65 - TYPE 2 DIABETES MELLITUS WITH HYPERGLYCEMIA (3) NOVA (acute kidney injury) Code(s): N17.9 - ACUTE KIDNEY FAILURE, UNSPECIFIED (4) Acute metabolic encephalopathy Code(s): G93.41 - METABOLIC ENCEPHALOPATHY (5) Bilateral leg ulcer Code(s): L97.919 - NON-PRS CHRONIC ULC UNSP PRT OF R LOW LEG W UNSP SEVERITY; L97.929 - NON-PRS CHRONIC ULC UNSP PRT OF L LOW LEG W UNSP SEVERITY Qualifiers: Non-pressure ulcer stage: limited to breakdown of skin Qualified Code(s): L97.911 - Non-pressure chronic ulcer of unspecified part of right lower leg limited to breakdown of skin; L97.921 - Non-pressure chronic ulcer of unspecified part of left lower leg limited to breakdown of skin (6) Sepsis Code(s): A41.9 - SEPSIS, UNSPECIFIED ORGANISM Qualifiers: Sepsis type: sepsis due to unspecified organism Sepsis acute organ dysfunction status: unspecified Qualified Code(s): A41.9 - Sepsis, unspecified organism (7) Abdominal lymphadenopathy Code(s): R59.0 - LOCALIZED ENLARGED LYMPH NODES (8) Afib Code(s): I48.91 - UNSPECIFIED ATRIAL FIBRILLATION Qualifiers: Atrial fibrillation type: paroxysmal Qualified Code(s): I48.0 - Paroxysmal atrial fibrillation (9) DM2 (diabetes mellitus, type 2) Code(s): E11.9 - TYPE 2 DIABETES MELLITUS WITHOUT COMPLICATIONS Qualifiers: Diabetes mellitus jail insulin use: with jail use Diabetes mellitus complication detail: with other circulatory complications (10) Morbid obesity Code(s): E66.01 - MORBID (SEVERE) OBESITY DUE TO EXCESS CALORIES (11) Sleep apnea Code(s): G47.30 - SLEEP APNEA, UNSPECIFIED Qualifiers: Sleep apnea type: idiopathic sleep related nonobstructive alveolar hypoventilation Qualified Code(s): G47.34 - Idiopathic sleep related nonobstructive alveolar hypoventilation (12) Toxic metabolic encephalopathy Code(s): G92 - TOXIC ENCEPHALOPATHY (13) Metabolic encephalopathy Code(s): G93.41 - METABOLIC ENCEPHALOPATHY (14) Severe sepsis Code(s): A41.9 - SEPSIS, UNSPECIFIED ORGANISM; R65.20 - SEVERE SEPSIS WITHOUT SEPTIC SHOCK Assessment/Plan IV ABX PER ID OOB TO CHAIR WOUND CARE VASX SX FOR LEG ULCERS DEBRIDED VS WOUND SOLUTIONS PT EVAL PATIENT HAS A HISTORY OF NON-COMPLIANCE WITH MEDICATIONS AND FOLLOW-UPS SANA DOES NOT FOLLOW UP IN MY OFFICE AND HER BROTHER IS AN OBSTACLE TO HER MEDICAL CARE. PSYCHIATRY AND NUTRITION EVAL ORDERED [employer] FOR ADULT PROTECTIVE SERVICES
--- NOTE | 2019-02-19 10:57 | PN ---
Progress Note, [employer] - Note Progress Note: Selected Entries 02/17/19 02/17/19 02/17/19 02:00 04:00 05:00 Temperature 100.4 F H 99.7 F H 99.4 F 02/17/19 02/17/19 02/17/19 10:00 14:00 18:00 Temperature 98.0 F 98.1 F 99.4 F 02/17/19 02/18/19 20:00 10:00 Temperature 98.5 F 98.4 F Laboratory Tests 02/15/19 02/16/19 02/17/19 05:30 05:00 05:40 WBC 12.3 H 11.4 H 9.1 02/18/19 05:30 WBC 8.2 Selected Entries 02/18/19 02/18/19 02/18/19 10:00 14:00 20:00 Breakfast 50% Lunch 50% Temperature 98.4 F 98.6 F 99 F 02/18/19 02/19/19 02/19/19 22:00 02:00 06:00 Breakfast Lunch Temperature 99.1 F 98.4 F 98.3 F Laboratory Tests 02/19/19 08:45 WBC 7.4 Tolerating diet. Fed hherself this am, 100% intake. No further f/u indicated.
--- NOTE | 2019-02-19 12:35 | PN ---
Teaching Attending Note Name of Resident: Sophie Mclaughlin ATTENDING PHYSICIAN STATEMENT I saw and evaluated the patient. I reviewed the resident's note and discussed the case with the resident. I agree with the resident's findings and plan as documented. SUBJECTIVE: Patient seen and examined in the ICU. Awake and alert. Continues to have good urine output. No fevers recorded. OBJECTIVE: Intake & Output 02/16/19 02/17/19 02/18/19 02/19/19 23:59 23:59 23:59 23:59 Intake Total 592 2284 2600 100 Output Total 5300 1600 1200 Balance -4708 684 1400 100 Weight 295 lb 5 oz 295 lb 13.765 oz 275 lb 12.8 oz 271 lb 14.4 oz Last Vital Signs Temp Pulse Resp BP Pulse Ox 98.2 F 94 H 24 H 104/57 L 96 02/19/19 10:00 02/19/19 12:00 02/19/19 12:00 02/19/19 12:00 02/19/19 09:00 Active Medications Acetaminophen (Ofirmev Injection -) 1,000 mg IVPB Q6H PRN PRN Reason: FEVER Last Admin: 02/15/19 18:22 Dose: 1,000 mg Apixaban (Eliquis -) 5 mg PO BID [facility] Last Admin: 02/19/19 09:22 Dose: 5 mg Budesonide/Formoterol Fumarate (Symbicort 80/4.5mcg -) 2 puff IH BID [facility] Last Admin: 02/19/19 09:23 Dose: 2 puff Doxycycline Hyclate (Vibramycin -) 100 mg PO BID@1000,1800 [facility] Last Admin: 02/19/19 09:22 Dose: 100 mg Furosemide (Lasix Injection -) 40 mg IVPUSH BID [facility] Last Admin: 02/18/19 22:05 Dose: Not Given Gabapentin (Neurontin -) 300 mg PO DAILY [facility] Last Admin: 02/19/19 09:22 Dose: 300 mg Heparin Sodium (Porcine) (Heparin -) 1,000 unit IVPUSH PRN PRN PRN Reason: Heparin Last Admin: 02/18/19 08:04 Dose: 1,000 unit Heparin Sodium (Porcine) (Heparin -) 5,000 unit IVPUSH PRN PRN PRN Reason: Heparin Last Admin: 02/14/19 11:21 Dose: 5,000 unit Meropenem 500 mg/ Dextrose 100 mls @ 200 mls/hr IVPB Q12H [facility] Last Admin: 02/19/19 09:24 Dose: 200 mls/hr Insulin Aspart (Novolog Vial Sliding Scale -) 1 vial SQ ACHS [facility]; Protocol Last Admin: 02/19/19 11:11 Dose: 4 units Metoprolol Tartrate (Lopressor Injection -) 5 mg IVPUSH Q4H PRN PRN Reason: TACHYCARDIA Last Admin: 02/14/19 11:37 Dose: 5 mg Nystatin (Mycostatin Cream -) 1 applic TP Q6HPO [facility] Last Admin: 02/19/19 11:38 Dose: 1 applic Gen: NAD at rest Heart: RRR Lung: decreased breath sounds at the bases Abd: soft, nontender Ext: legs wrapped Laboratory Results - last 24 hr 02/18/19 02/18/19 02/18/19 05:30 15:47 21:48 WBC RBC Hgb Hct MCV MCH MCHC RDW Plt Count MPV Neutrophils % (Manual) 67.4 Band Neutrophils % 2.0 Lymphocytes % (Manual) 14.3 Monocytes % (Manual) 6 Eosinophils % (Manual) 2.1 Basophils % (Manual) 5.1 H* D Myelocytes % (Man) 0 Promyelocytes % (Man) 0 Blast Cells % (Manual) 0 Metamyelocytes 2 D Platelet Estimate Adequate Sodium Potassium Chloride Carbon Dioxide Anion Gap BUN Creatinine Est GFR (CKD-EPI)AfAm Est GFR (CKD-EPI)NonAf POC Glucometer 127 163 Random Glucose Calcium Phosphorus Magnesium 02/19/19 02/19/19 02/19/19 06:14 08:45 08:45 WBC 7.4 RBC 3.58 L Hgb 10.0 L Hct 31.4 L MCV 87.6 MCH 28.0 MCHC 31.9 L RDW 15.4 Plt Count 394 MPV 9.4 Neutrophils % (Manual) Band Neutrophils % Lymphocytes % (Manual) Monocytes % (Manual) Eosinophils % (Manual) Basophils % (Manual) Myelocytes % (Man) Promyelocytes % (Man) Blast Cells % (Manual) Metamyelocytes Platelet Estimate Sodium 143 Potassium 3.5 Chloride 100 Carbon Dioxide 37 H Anion Gap 5 L BUN 20.6 H Creatinine 0.9 Est GFR (CKD-EPI)AfAm 83.43 Est GFR (CKD-EPI)NonAf 71.98 POC Glucometer 132 Random Glucose 124 H Calcium 9.5 Phosphorus 3.6 Magnesium 1.8 02/19/19 10:59 WBC RBC Hgb Hct MCV MCH MCHC RDW Plt Count MPV Neutrophils % (Manual) Band Neutrophils % Lymphocytes % (Manual) Monocytes % (Manual) Eosinophils % (Manual) Basophils % (Manual) Myelocytes % (Man) Promyelocytes % (Man) Blast Cells % (Manual) Metamyelocytes Platelet Estimate Sodium Potassium Chloride Carbon Dioxide Anion Gap BUN Creatinine Est GFR (CKD-EPI)AfAm Est GFR (CKD-EPI)NonAf POC Glucometer 161 Random Glucose Calcium Phosphorus Magnesium ASSESSMENT AND PLAN: s/p Acute Respiratory Failure Cellulitis/Infected Leg Ulcers Septic Shock resolving Acute Kidney Injury requiring emergent HD now improving Hyperkalemia improved Lactic Acidosis Atrial Fibrillation HTN DM Hyperlipidemia Anemia - continue antibiotics - wound care - monitor urine output, creatinine - replete lytes - O2 to keep Spo2 >90% - BiPAP at night and PRN during day - rate control - continue anticoagulation - DVT/GI prophylaxis - can monitor on floor Dr Andre
--- NOTE | 2019-02-19 12:50 | CON.PSY ---
Psychiatry Consult Chief Complaint: 53 Ywera old female seen for Psych eval for non compliane with meds. Patient However reports that she is generally com-pliant wioth her meds. She denies feeling depressed or suicvidal. She is eating lunch and watcing tV> in good spirits. - Previous Psychiatric Treatment Outpatient: None Inpatient: None - Previous Substance Abuse Treatment Outpatient: None Inpatient: None - Current Medications Current Medications: Active Medications Acetaminophen (Ofirmev Injection -) 1,000 mg IVPB Q6H PRN PRN Reason: FEVER Last Admin: 02/15/19 18:22 Dose: 1,000 mg Apixaban (Eliquis -) 5 mg PO BID [facility] Last Admin: 02/19/19 09:22 Dose: 5 mg Budesonide/Formoterol Fumarate (Symbicort 80/4.5mcg -) 2 puff IH BID [facility] Last Admin: 02/19/19 09:23 Dose: 2 puff Doxycycline Hyclate (Vibramycin -) 100 mg PO BID@1000,1800 [facility] Last Admin: 02/19/19 09:22 Dose: 100 mg Furosemide (Lasix Injection -) 40 mg IVPUSH BID [facility] Last Admin: 02/18/19 22:05 Dose: Not Given Gabapentin (Neurontin -) 300 mg PO DAILY [facility] Last Admin: 02/19/19 09:22 Dose: 300 mg Heparin Sodium (Porcine) (Heparin -) 1,000 unit IVPUSH PRN PRN PRN Reason: Heparin Last Admin: 02/18/19 08:04 Dose: 1,000 unit Heparin Sodium (Porcine) (Heparin -) 5,000 unit IVPUSH PRN PRN PRN Reason: Heparin Last Admin: 02/14/19 11:21 Dose: 5,000 unit Meropenem 500 mg/ Dextrose 100 mls @ 200 mls/hr IVPB Q12H [facility] Last Admin: 02/19/19 09:24 Dose: 200 mls/hr Insulin Aspart (Novolog Vial Sliding Scale -) 1 vial SQ ACHS [facility]; Protocol Last Admin: 02/19/19 11:11 Dose: 4 units Metoprolol Tartrate (Lopressor Injection -) 5 mg IVPUSH Q4H PRN PRN Reason: TACHYCARDIA Last Admin: 02/14/19 11:37 Dose: 5 mg Nystatin (Mycostatin Cream -) 1 applic TP Q6HPO [facility] Last Admin: 02/19/19 11:38 Dose: 1 applic - Allergies Allergies: Allergies Allergy/AdvReac Type Severity Reaction Status Date / Time nut - unspecified Allergy Verified 02/08/19 09:45 Penicillins Allergy Verified 02/08/19 09:45 walnut Allergy Verified 02/08/19 09:45 caviar Allergy Uncoded 02/17/19 11:35 - Current Living Status Usual Living Arrangement: With Spouse - Current Mental Status Evaluation Appearance: Well Groomed Attitude: Cooperative - Affect Affect: Full Range Appropriateness: Appropriate to Content - Mood Mood: Euthymic - Speech/Language Expressive: Coherent - Psychomotor Activity Psychomotor Activity: Normal - Thought Process Thought Process: Intact - Thought Content Hallucinations: Absent Delusions: Absent - Self Perception Self Perception: No Impairment - Cognition Attention: Alert Orientation: Time Memory, Immediate Recall: Intact Memory, Short Term: 3/3 Memory, Remote with Promptin/3 - Concentration Serial Sevens Intact: Yes Simple Calculations Intact: Yes - Abstraction Proverb Interpretation: Intact Judgement: Intact - Insight Insight: Intact - Suicidal Ideation Suicidal Ideation: No - Homicidal Ideation Homicidal Ideation: No Assessment/Plan 1) Patient has no acute Mental illness thats causing non compliance with her treatment.
--- NOTE | 2019-02-19 13:03 | PN ---
Physical Exam: SUBJECTIVE: Patient seen and examined at bedside. pt is requesting more PT and ankle weights. pt has no acute complaints. OBJECTIVE: Vital Signs Period Temp Pulse Resp BP Sys/Callahan Pulse Ox Last 24 Hr 98.2 F-99.1 F 91-135 20-24 86-108/52-76 96-96 GENERAL: The patient is obese, awake, alert, and fully oriented, in no acute distress. LUNGS: Breath sounds equal, clear to auscultation bilaterally, no accessory muscle use. HEART: Regular rate and rhythm, S1, S2 without murmur, rub or gallop. ABDOMEN: Soft, nontender, nondistended, normoactive bowel sounds, no guarding EXTREMITIES: b/l LE edema and b/l wounds Laboratory Results - last 24 hr 02/19/19 02/19/19 02/19/19 06:14 08:45 08:45 WBC 7.4 RBC 3.58 L Hgb 10.0 L Hct 31.4 L MCV 87.6 MCH 28.0 MCHC 31.9 L RDW 15.4 Plt Count 394 MPV 9.4 Neutrophils % (Manual) Band Neutrophils % Lymphocytes % (Manual) Monocytes % (Manual) Eosinophils % (Manual) Basophils % (Manual) Myelocytes % (Man) Promyelocytes % (Man) Blast Cells % (Manual) Metamyelocytes Platelet Estimate Sodium 143 Potassium 3.5 Chloride 100 Carbon Dioxide 37 H Anion Gap 5 L BUN 20.6 H Creatinine 0.9 Est GFR (CKD-EPI)AfAm 83.43 Est GFR (CKD-EPI)NonAf 71.98 POC Glucometer 132 Random Glucose 124 H Calcium 9.5 Phosphorus 3.6 Magnesium 1.8 Current Medications Acetaminophen (Ofirmev Injection -) 1,000 mg IVPB Q6H PRN PRN Reason: FEVER Last Admin: 02/15/19 18:22 Dose: 1,000 mg Apixaban (Eliquis -) 5 mg PO BID [facility] Last Admin: 02/19/19 09:22 Dose: 5 mg Budesonide/Formoterol Fumarate (Symbicort 80/4.5mcg -) 2 puff IH BID [facility] Last Admin: 02/19/19 09:23 Dose: 2 puff Doxycycline Hyclate (Vibramycin -) 100 mg PO BID@1000,1800 [facility] Last Admin: 02/19/19 09:22 Dose: 100 mg Furosemide (Lasix Injection -) 40 mg IVPUSH BID [facility] Last Admin: 02/18/19 22:05 Dose: Not Given Gabapentin (Neurontin -) 300 mg PO DAILY [facility] Last Admin: 02/19/19 09:22 Dose: 300 mg Meropenem 500 mg/ Dextrose 100 mls @ 200 mls/hr IVPB Q12H [facility] Last Admin: 02/19/19 09:24 Dose: 200 mls/hr Insulin Aspart (Novolog Vial Sliding Scale -) 1 vial SQ ACHS [facility]; Protocol Last Admin: 02/19/19 11:11 Dose: 4 units Metoprolol Tartrate (Lopressor Injection -) 5 mg IVPUSH Q4H PRN PRN Reason: TACHYCARDIA Last Admin: 02/14/19 11:37 Dose: 5 mg Nystatin (Mycostatin Cream -) 1 applic TP Q6HPO [facility] Last Admin: 02/19/19 11:38 Dose: 1 applic ASSESSMENT/PLAN: 53F PMH B/L LE chronic Venous stasis ulcerations, Chronic Afib on AC, HTN, poorly controlled T2DM, Dyslipedemia, Bipolar disorder, CKD (non-compliant with medications) BIBEMS to [facility] for altered mental status. ICU admission for emergent HD. Neuro : - pt AO X3 Respiratory - c/w symbicort - saturating well on NC - maintain SaO2>90% - PT recs appreciated RENAL: NOVA s/p emergent dialysis - renal function is improved, no need HD at this time -avoid nephrotoxic agents CARDIO - a-fib w/ RVR; septic shock s/p pressor support - now vitals stable without pressors. - amio gtt if hr >150s - on eliquis ID -> Sepsis likely 2/2 LE Wound Ulcers/AMS/Toxic metabolic encephalopathy/ Uremia - Infected b/l LE ulcers/cellulitis, no abscess seen on exam - Urine and Blood Cultures negative, wound culture LLE: N.L.F. gram negative bacilli, MRSA, group D strep or enterococcus, RLE: L.F. G- bacilli, N.L.F, group d strep or enterococcus. - c/w merrem day 10, doxy day 2 -ID recs appreciated FEN Monitor lytes low Na, diabetic diet PPx: DVT: on eliquis Dispo: transfer to medicine floors Thank you for this consultative opportunity. Visit type - Emergency Visit Emergency Visit: No - New Patient This patient is new to me today: Yes Date on this admission: 02/19/19 - Critical Care Critical Care patient: Yes Total Critical Care Time (in minutes): 36 Critical Care Statement: The care of this patient involved high complexity decision making to prevent further life threatening deterioration of the patient 's condition and/or to evaluate & treat vital organ system(s) failure or risk of failure. ATTENDING PHYSICIAN STATEMENT I saw and evaluated the patient. I reviewed the resident's note and discussed the case with the resident. I agree with the resident's findings and plan as documented. SUBJECTIVE: OBJECTIVE: ASSESSMENT AND PLAN:
--- NOTE | 2019-02-19 17:26 | PN ---
Progress Note, Physician History of Present Illness: Pt seen and examined. Events noted. She is alert and fully responsive, without specific complaints. Remains afebrile. - Current Medication List Current Medications: Active Medications Acetaminophen (Ofirmev Injection -) 1,000 mg IVPB Q6H PRN PRN Reason: FEVER Last Admin: 02/15/19 18:22 Dose: 1,000 mg Apixaban (Eliquis -) 5 mg PO BID [facility] Last Admin: 02/19/19 09:22 Dose: 5 mg Budesonide/Formoterol Fumarate (Symbicort 80/4.5mcg -) 2 puff IH BID [facility] Last Admin: 02/19/19 09:23 Dose: 2 puff Doxycycline Hyclate (Vibramycin -) 100 mg PO BID@1000,1800 [facility] Last Admin: 02/19/19 17:19 Dose: 100 mg Furosemide (Lasix Injection -) 40 mg IVPUSH BID [facility] Last Admin: 02/18/19 22:05 Dose: Not Given Gabapentin (Neurontin -) 300 mg PO DAILY [facility] Last Admin: 02/19/19 09:22 Dose: 300 mg Meropenem 500 mg/ Dextrose 100 mls @ 200 mls/hr IVPB Q12H [facility] Last Admin: 02/19/19 09:24 Dose: 200 mls/hr Insulin Aspart (Novolog Vial Sliding Scale -) 1 vial SQ ACHS [facility]; Protocol Last Admin: 02/19/19 16:53 Dose: 2 units Metoprolol Tartrate (Lopressor Injection -) 5 mg IVPUSH Q4H PRN PRN Reason: TACHYCARDIA Last Admin: 02/14/19 11:37 Dose: 5 mg Nystatin (Mycostatin Cream -) 1 applic TP Q6HPO [facility] Last Admin: 02/19/19 17:20 Dose: 1 applic - Objective Vital Signs: Vital Signs Temperature 98.2 F 02/19/19 14:00 Pulse Rate 102 H 02/19/19 14:00 Respiratory Rate 22 H 02/19/19 16:00 Blood Pressure 86/56 L 02/19/19 16:00 O2 Sat by Pulse Oximetry (%) 96 02/19/19 09:00 Constitutional: Yes: No Distress, Calm Cardiovascular: Yes: Tachycardia Respiratory: Yes: CTA Bilaterally, On Nasal O2 Gastrointestinal: Yes: Normal Bowel Sounds, Soft, Abdomen, Obese Genitourinary: Yes: WNL Edema: Yes Wound/Incision: Yes: Dressing Dry and Intact Neurological: Yes: Alert Psychiatric: Yes: Alert Labs: CBC, BMP 02/19/19 08:45 02/19/19 08:45 INR, PTT INR 1.71 (0.83-1.09) H 02/09/19 05:00 Fibrinogen 474.0 mg/dL (238-498) 02/11/19 08:58 Microbiology 02/08/19 01:45 Blood - Peripheral Venous Blood Culture - Final NO GROWTH AFTER 5 DAYS INCUBATION 02/08/19 01:45 Blood - Peripheral Venous Blood Culture - Final NO GROWTH AFTER 5 DAYS INCUBATION 02/08/19 09:15 Leg - Right Lower Gram Stain - Final 02/08/19 09:15 Leg - Right Lower Wound Culture - Final Klebsiella Pneumoniae Morganella Morganii Pseudomonas Aeruginosa Enterococcus Faecalis Enterococcus Avium Prevotella Oralis 02/08/19 12:20 Leg - Left Lower Gram Stain - Final 02/08/19 12:20 Leg - Left Lower Wound Culture - Final Serratia Marcescens Enterococcus Faecalis Mr S Aureus 02/08/19 16:00 Urine - Urine Johnson Urine Culture - Final NO GROWTH OBTAINED 02/08/19 09:15 Urine - Urine Johnson Urine Culture - Final NO GROWTH OBTAINED Problem List - Problems (1) Bilateral leg ulcer Code(s): L97.919 - NON-PRS CHRONIC ULC UNSP PRT OF R LOW LEG W UNSP SEVERITY; L97.929 - NON-PRS CHRONIC ULC UNSP PRT OF L LOW LEG W UNSP SEVERITY Qualifiers: Non-pressure ulcer stage: limited to breakdown of skin Qualified Code(s): L97.911 - Non-pressure chronic ulcer of unspecified part of right lower leg limited to breakdown of skin; L97.921 - Non-pressure chronic ulcer of unspecified part of left lower leg limited to breakdown of skin (2) Sepsis Code(s): A41.9 - SEPSIS, UNSPECIFIED ORGANISM Qualifiers: Sepsis type: sepsis due to unspecified organism Sepsis acute organ dysfunction status: unspecified Qualified Code(s): A41.9 - Sepsis, unspecified organism (3) ARF (acute renal failure) Code(s): N17.9 - ACUTE KIDNEY FAILURE, UNSPECIFIED (4) Afib Code(s): I48.91 - UNSPECIFIED ATRIAL FIBRILLATION Qualifiers: Atrial fibrillation type: paroxysmal Qualified Code(s): I48.0 - Paroxysmal atrial fibrillation (5) Altered mental status Code(s): R41.82 - ALTERED MENTAL STATUS, UNSPECIFIED (6) Cellulitis Code(s): L03.90 - CELLULITIS, UNSPECIFIED Qualifiers: Site of cellulitis: unspecified site Qualified Code(s): L03.90 - Cellulitis , unspecified (7) DM2 (diabetes mellitus, type 2) Code(s): E11.9 - TYPE 2 DIABETES MELLITUS WITHOUT COMPLICATIONS Qualifiers: Diabetes mellitus intermediate accountant insulin use: with alf use Diabetes mellitus complication detail: with other circulatory complications (8) Encephalopathy due to metabolic factor or toxin Code(s): [id number] - (9) HTN (hypertension) Code(s): I10 - ESSENTIAL (PRIMARY) HYPERTENSION (10) Hyperkalemia Code(s): E87.5 - HYPERKALEMIA (11) Lactic acidosis Code(s): E87.2 - ACIDOSIS (12) Leukocytosis Code(s): D72.829 - ELEVATED WHITE BLOOD CELL COUNT, UNSPECIFIED (13) Metabolic acidosis Code(s): E87.2 - ACIDOSIS (14) Morbid obesity Code(s): E66.01 - MORBID (SEVERE) OBESITY DUE TO EXCESS CALORIES (15) Severe sepsis Code(s): A41.9 - SEPSIS, UNSPECIFIED ORGANISM; R65.20 - SEVERE SEPSIS WITHOUT SEPTIC SHOCK (16) Venous stasis Code(s): I87.8 - OTHER SPECIFIED DISORDERS OF VEINS Assessment/Plan 53 y.o. female with PMH of chronic b/l LE ulcers, cellulitis, T2 DM, HTN, HLD, CKD, Anemia, GERD, obesity, AFIB, Asthma, and bipolar disorder brought to the ER by her brother for lethargy/AMS for the last several days noted to be in ARF , with leukocytosis, and b/l LE ulcers with malodorous drainage/erythema/warmth s/p Septic shock AMS/Toxic metabolic encephalopathy/Uremia - resolved Infected b/l LE ulcers/cellulitis ARF on CKD - s/p emergent HD , renal function improved Leukocytosis - resolved AFIB DM Morbid Obesity Asthma Bipolar d.o. HTN HLD -- continue current antibiotics -- Pt is afebrile, without leukocytosis, alert -- all culture results noted -- continue wound care cc time: 35 min
--- NOTE | 2019-02-19 19:40 | PN ---
Progress Note, Physician History of Present Illness: Pt seen and examined at bedside. She is awake and alert. She denies shortness of breath however she is not moving around much. - Current Medication List Current Medications: Active Medications Acetaminophen (Ofirmev Injection -) 1,000 mg IVPB Q6H PRN PRN Reason: FEVER Last Admin: 02/15/19 18:22 Dose: 1,000 mg Apixaban (Eliquis -) 5 mg PO BID [facility] Last Admin: 02/19/19 09:22 Dose: 5 mg Budesonide/Formoterol Fumarate (Symbicort 80/4.5mcg -) 2 puff IH BID [facility] Last Admin: 02/19/19 09:23 Dose: 2 puff Doxycycline Hyclate (Vibramycin -) 100 mg PO BID@1000,1800 [facility] Last Admin: 02/19/19 17:19 Dose: 100 mg Furosemide (Lasix Injection -) 40 mg IVPUSH BID [facility] Last Admin: 02/18/19 22:05 Dose: Not Given Gabapentin (Neurontin -) 300 mg PO DAILY [facility] Last Admin: 02/19/19 09:22 Dose: 300 mg Meropenem 500 mg/ Dextrose 100 mls @ 200 mls/hr IVPB Q12H [facility] Last Admin: 02/19/19 09:24 Dose: 200 mls/hr Insulin Aspart (Novolog Vial Sliding Scale -) 1 vial SQ ACHS [facility]; Protocol Last Admin: 02/19/19 16:53 Dose: 2 units Metoprolol Tartrate (Lopressor Injection -) 5 mg IVPUSH Q4H PRN PRN Reason: TACHYCARDIA Last Admin: 02/14/19 11:37 Dose: 5 mg Nystatin (Mycostatin Cream -) 1 applic TP Q6HPO [facility] Last Admin: 02/19/19 17:20 Dose: 1 applic - Objective Vital Signs: Vital Signs Temperature 98.2 F 02/19/19 14:00 Pulse Rate 102 H 02/19/19 18:11 Respiratory Rate 22 H 02/19/19 18:11 Blood Pressure 94/62 02/19/19 18:11 O2 Sat by Pulse Oximetry (%) 96 02/19/19 09:00 Constitutional: Yes: Calm Eyes: Yes: Conjunctiva Clear HENT: Yes: Atraumatic Neck: Yes: Supple Cardiovascular: Yes: S1, S2 Gastrointestinal: Yes: Soft Genitourinary: Yes: Incontinence Musculoskeletal: Yes: WNL Edema: Yes Neurological: Yes: Oriented Psychiatric: Yes: Oriented Labs: CBC, BMP 02/19/19 08:45 02/19/19 08:45 INR, PTT INR 1.71 (0.83-1.09) H 02/09/19 05:00 Fibrinogen 474.0 mg/dL (238-498) 02/11/19 08:58 Problem List - Problems (1) NOVA (acute kidney injury) Code(s): N17.9 - ACUTE KIDNEY FAILURE, UNSPECIFIED (2) Acute metabolic encephalopathy Code(s): G93.41 - METABOLIC ENCEPHALOPATHY (3) Sepsis Code(s): A41.9 - SEPSIS, UNSPECIFIED ORGANISM Qualifiers: Sepsis type: sepsis due to unspecified organism Sepsis acute organ dysfunction status: unspecified Qualified Code(s): A41.9 - Sepsis, unspecified organism (4) ARF (acute renal failure) Code(s): N17.9 - ACUTE KIDNEY FAILURE, UNSPECIFIED Assessment/Plan Current Medications Generic Name Dose Route Start Last Admin Trade Name Freq PRN Reason Stop Dose Admin Acetaminophen 1,000 mg 02/15/19 18:10 02/15/19 18:22 Ofirmev Injection - IVPB 1,000 mg Q6H PRN Administration FEVER Apixaban 5 mg 02/18/19 22:00 02/19/19 09:22 Eliquis - PO 5 mg BID [facility] Administration Budesonide/Formoterol Fumarate 2 puff 02/08/19 10:00 02/19/19 09:23 Symbicort 80/4.5mcg - IH 2 puff BID [facility] Administration Doxycycline Hyclate 100 mg 02/18/19 18:00 02/19/19 17:19 Vibramycin - PO 100 mg BID@1000,1800 [facility] Administration Furosemide 40 mg 02/15/19 10:00 02/18/19 22:05 Lasix Injection - IVPUSH Not Given BID [facility] Gabapentin 300 mg 02/08/19 10:00 02/19/19 09:22 Neurontin - PO 300 mg DAILY [facility] Administration Meropenem 500 mg/ Dextrose 100 mls @ 200 mls/hr 02/08/19 22:00 02/19/19 09:24 IVPB 200 mls/hr Q12H [facility] Administration Insulin Aspart 1 vial 02/08/19 11:00 02/19/19 16:53 Novolog Vial Sliding Scale - SQ 2 units ACHS [facility] Administration Protocol Metoprolol Tartrate 5 mg 02/11/19 22:22 02/14/19 11:37 Lopressor Injection - IVPUSH 5 mg Q4H PRN Administration TACHYCARDIA Nystatin 1 applic 02/08/19 12:00 02/19/19 17:20 Mycostatin Cream - TP 1 applic Q6HPO [facility] Administration Impression 1. NOVA 2. hyperkalemia 3. obesity 4. DM 5. a-fib 6. HTN 7. chronic lower extremity ulcers 8. gastritis 9. sepsis 10. hyperglycemia 11. metabolic acidosis 12. acute resp failure 13. hypernatremia Plan - renal function stable - cont lasix - monitor lytes - 2 gram sodium diabetic diet - wound care - monitor pulse ox
[2019-02-20] MEDS: INSULIN SLIDING SCALE (NOVOLOG) 1 VIAL SQ SCH ×5 (00:06→21:18)
[2019-02-20] MEDS: NYSTATIN 100,000 UNIT/GM TOPICAL CREAM 15 GM TUBE TP SCH ×3 (06:36→17:15)
[2019-02-20 07:18] LABS: BLOOD UREA NITROGEN 23.2 mg/dL (7-18); CREATININE 0.9 mg/dL (0.55-1.3); MAGNESIUM 1.7 mg/dL (1.8-2.4); PHOSPHOROUS 3.7 mg/dL (2.5-4.9); POTASSIUM 3.6 mmol/L (3.5-5.1)
[2019-02-20 07:38] LABS: HEMATOCRIT 28.4 % (32.4-45.2); HEMOGLOBIN 9.5 GM/dL (10.7-15.3); MCH 29.1 pg (25.7-33.7); MCHC 33.5 g/dl (32.0-36.0); MEAN CELL VOLUME 86.8 fl (80-96); MEAN PLT VOLUME 9.5 fl (7.5-11.1); PLATELET COUNT 388 K/MM3 (134-434); RBC 3.27 M/mm3 (3.60-5.2); RDW 15.4 % (11.6-15.6); WHITE BLOOD COUNT 7.7 K/mm3 (4.0-10.0)
[2019-02-20] MEDS ORDERED: MAGNESIUM OXIDE 400 MG TABLET (FP) PO ONE (08:40)
[2019-02-20] MEDS ORDERED: DEXTROSE 5%-WATER 100 ML IVPB ONE (09:40)
[2019-02-20] MEDS ORDERED: MEROPENEM 500 MG VIAL (RESTRICTED TO ID) IVPB ONE (09:40)
[2019-02-20] MEDS ORDERED: PT OWN MED DRAWER 7, Y5N ONE ×3 (09:41→21:12)
[2019-02-20] MEDS: FUROSEMIDE 40 MG/4 ML INJECTABLE VIAL IVPUSH SCH (09:42)
[2019-02-20] MEDS: MEROPENEM 500 MG in DEXTROSE 5%-WATER 100 ML IVPB SCH ×2 (09:48→21:18)
[2019-02-20] MEDS: APIXABAN 5 MG TABLET PO SCH ×2 (09:48→21:18)
[2019-02-20] MEDS: DOXYCYCLINE HYCLATE 100 MG CAPSULE PO SCH ×2 (09:48→17:15)
[2019-02-20] MEDS: GABAPENTIN 300 MG CAPSULE (FP) PO SCH (09:48)
[2019-02-20] MEDS: BUDESONIDE/FORMETEROL FUMARATE 80/4.5 mcg INHALER IH SCH ×2 (09:49→21:20)
--- NOTE | 2019-02-20 10:50 | PN ---
Teaching Attending Note Name of Resident: Hermes Lazcano ATTENDING PHYSICIAN STATEMENT I saw and evaluated the patient. I reviewed the resident's note and discussed the case with the resident. I agree with the resident's findings and plan as documented. SUBJECTIVE: Patient seen and examined in the ICU. Awake and alert. Continues to have good urine output. No fevers recorded. OBJECTIVE: Intake & Output 02/17/19 02/18/19 02/19/19 02/20/19 23:59 23:59 23:59 23:59 Intake Total 2284 2600 800 440 Output Total 1600 1200 Balance 684 1400 800 440 Weight 295 lb 13.765 oz 275 lb 12.8 oz 271 lb 14.4 oz 273 lb 3 oz Last Vital Signs Temp Pulse Resp BP Pulse Ox 98.1 F 106 H 22 H 126/68 96 02/20/19 10:00 02/20/19 10:00 02/20/19 10:00 02/20/19 10:00 02/19/19 20:16 Active Medications Acetaminophen (Ofirmev Injection -) 1,000 mg IVPB Q6H PRN PRN Reason: FEVER Last Admin: 02/15/19 18:22 Dose: 1,000 mg Apixaban (Eliquis -) 5 mg PO BID [facility] Last Admin: 02/20/19 09:48 Dose: 5 mg Budesonide/Formoterol Fumarate (Symbicort 80/4.5mcg -) 2 puff IH BID [facility] Last Admin: 02/20/19 09:49 Dose: 2 puff Doxycycline Hyclate (Vibramycin -) 100 mg PO BID@1000,1800 [facility] Last Admin: 02/20/19 09:48 Dose: 100 mg Furosemide (Lasix Injection -) 40 mg IVPUSH BID [facility] Last Admin: 02/20/19 09:42 Dose: 40 mg Gabapentin (Neurontin -) 300 mg PO DAILY [facility] Last Admin: 02/20/19 09:48 Dose: 300 mg Meropenem 500 mg/ Dextrose 100 mls @ 200 mls/hr IVPB Q12H [facility] Last Admin: 02/20/19 09:48 Dose: 200 mls/hr Insulin Aspart (Novolog Vial Sliding Scale -) 1 vial SQ ACHS [facility]; Protocol Last Admin: 02/20/19 06:36 Dose: Not Given Metoprolol Tartrate (Lopressor Injection -) 5 mg IVPUSH Q4H PRN PRN Reason: TACHYCARDIA Last Admin: 02/14/19 11:37 Dose: 5 mg Nystatin (Mycostatin Cream -) 1 applic TP Q6HPO [facility] Last Admin: 02/20/19 06:36 Dose: Not Given Gen: NAD at rest Heart: RRR Lung: decreased breath sounds at the bases Abd: soft, nontender Ext: legs wrapped Laboratory Results - last 24 hr 02/19/19 02/19/19 02/19/19 10:59 16:51 22:14 WBC RBC Hgb Hct MCV MCH MCHC RDW Plt Count MPV PTT (Actin FS) Sodium Potassium Chloride Carbon Dioxide Anion Gap BUN Creatinine Est GFR (CKD-EPI)AfAm Est GFR (CKD-EPI)NonAf POC Glucometer 161 126 141 Random Glucose Calcium Phosphorus Magnesium 02/20/19 02/20/19 02/20/19 06:05 06:05 06:05 WBC 7.7 RBC 3.27 L Hgb 9.5 L Hct 28.4 L MCV 86.8 MCH 29.1 MCHC 33.5 RDW 15.4 Plt Count 388 MPV 9.5 PTT (Actin FS) 31.6 Sodium 141 Potassium 3.6 Chloride 101 Carbon Dioxide 35 H Anion Gap 6 L BUN 23.2 H Creatinine 0.9 Est GFR (CKD-EPI)AfAm 83.43 Est GFR (CKD-EPI)NonAf 71.98 POC Glucometer Random Glucose 135 H Calcium 9.0 Phosphorus 3.7 Magnesium 1.7 L 02/20/19 06:07 WBC RBC Hgb Hct MCV MCH MCHC RDW Plt Count MPV PTT (Actin FS) Sodium Potassium Chloride Carbon Dioxide Anion Gap BUN Creatinine Est GFR (CKD-EPI)AfAm Est GFR (CKD-EPI)NonAf POC Glucometer 137 Random Glucose Calcium Phosphorus Magnesium ASSESSMENT AND PLAN: s/p Acute Respiratory Failure Cellulitis/Infected Leg Ulcers Septic Shock resolving Acute Kidney Injury requiring emergent HD now improving Hyperkalemia improved Lactic Acidosis Atrial Fibrillation HTN DM Hyperlipidemia Anemia - continue antibiotics per ID - wound care - monitor urine output, creatinine - replete lytes - O2 to keep Spo2 >90% - BiPAP at night and PRN during day - rate control - continue anticoagulation - DVT/GI prophylaxis - can monitor on floor Dr Andre
[2019-02-20] MEDS ORDERED: MAGNESIUM SULF 50% (8.12 MEQ/2 ML-1 GM VIAL) IVPB ONE (12:11)
--- NOTE | 2019-02-20 12:20 | PN ---
Progress Note, Physician Chief Complaint: patient seen and examined she wants to go home and doesnot want to stay her in hospital for antibiotics she is refusing snf and vns and PT - Current Medication List Current Medications: Active Medications Acetaminophen (Ofirmev Injection -) 1,000 mg IVPB Q6H PRN PRN Reason: FEVER Last Admin: 02/15/19 18:22 Dose: 1,000 mg Apixaban (Eliquis -) 5 mg PO BID [facility] Last Admin: 02/20/19 09:48 Dose: 5 mg Budesonide/Formoterol Fumarate (Symbicort 80/4.5mcg -) 2 puff IH BID [facility] Last Admin: 02/20/19 09:49 Dose: 2 puff Doxycycline Hyclate (Vibramycin -) 100 mg PO BID@1000,1800 [facility] Last Admin: 02/20/19 09:48 Dose: 100 mg Furosemide (Lasix Oral Solution -) 80 mg PO BID@0600,1400 [facility] Gabapentin (Neurontin -) 300 mg PO DAILY [facility] Last Admin: 02/20/19 09:48 Dose: 300 mg Meropenem 500 mg/ Dextrose 100 mls @ 200 mls/hr IVPB Q12H [facility] Last Admin: 02/20/19 09:48 Dose: 200 mls/hr Insulin Aspart (Novolog Vial Sliding Scale -) 1 vial SQ ACHS [facility]; Protocol Last Admin: 02/20/19 06:36 Dose: Not Given Metoprolol Tartrate (Lopressor -) 25 mg PO DAILY [facility] Nystatin (Mycostatin Cream -) 1 applic TP Q6HPO [facility] Last Admin: 02/20/19 06:36 Dose: Not Given - Objective Vital Signs: Vital Signs Temperature 98.1 F 02/20/19 10:00 Pulse Rate 100 H 02/20/19 11:53 Respiratory Rate 22 H 02/20/19 11:53 Blood Pressure 126/68 02/20/19 10:00 O2 Sat by Pulse Oximetry (%) 95 02/20/19 11:53 Cardiovascular: Yes: Regular Rate and Rhythm, S1, S2 Respiratory: Yes: CTA Bilaterally Gastrointestinal: Yes: Normal Bowel Sounds, Soft, Abdomen, Obese Extremities: Yes: Other (legs un wrapped and wounds seen) Edema: Yes Neurological: Yes: Alert Labs: CBC, BMP 02/20/19 06:05 02/20/19 06:05 INR, PTT INR 1.71 (0.83-1.09) H 02/09/19 05:00 Fibrinogen 474.0 mg/dL (238-498) 02/11/19 08:58 Problem List - Problems (1) Bilateral leg ulcer Assessment/Plan: iv abx meropenem and doxycyline wound care to legs Code(s): L97.919 - NON-PRS CHRONIC ULC UNSP PRT OF R LOW LEG W UNSP SEVERITY; L97.929 - NON-PRS CHRONIC ULC UNSP PRT OF L LOW LEG W UNSP SEVERITY Qualifiers: Non-pressure ulcer stage: limited to breakdown of skin Qualified Code(s): L97.911 - Non-pressure chronic ulcer of unspecified part of right lower leg limited to breakdown of skin; L97.921 - Non-pressure chronic ulcer of unspecified part of left lower leg limited to breakdown of skin (2) NOVA (acute kidney injury) Assessment/Plan: much improved Code(s): N17.9 - ACUTE KIDNEY FAILURE, UNSPECIFIED (3) Afib Assessment/Plan: eliquis and metoprolol Code(s): I48.91 - UNSPECIFIED ATRIAL FIBRILLATION Qualifiers: Atrial fibrillation type: paroxysmal Qualified Code(s): I48.0 - Paroxysmal atrial fibrillation (4) DM2 (diabetes mellitus, type 2) Assessment/Plan: [id number] 9.3 insulin required Code(s): E11.9 - TYPE 2 DIABETES MELLITUS WITHOUT COMPLICATIONS Qualifiers: Diabetes mellitus nursing home insulin use: with ocean transportation intermediary use Diabetes mellitus complication detail: with other circulatory complications
--- NOTE | 2019-02-20 13:38 | PN ---
Progress Note, Physician History of Present Illness: stable improving no complaints - Current Medication List Current Medications: Active Medications Acetaminophen (Ofirmev Injection -) 1,000 mg IVPB Q6H PRN PRN Reason: FEVER Last Admin: 02/15/19 18:22 Dose: 1,000 mg Apixaban (Eliquis -) 5 mg PO BID [facility] Last Admin: 02/20/19 09:48 Dose: 5 mg Budesonide/Formoterol Fumarate (Symbicort 80/4.5mcg -) 2 puff IH BID [facility] Last Admin: 02/20/19 09:49 Dose: 2 puff Doxycycline Hyclate (Vibramycin -) 100 mg PO BID@1000,1800 [facility] Last Admin: 02/20/19 09:48 Dose: 100 mg Furosemide (Lasix Oral Solution -) 80 mg PO BID@0600,1400 [facility] Gabapentin (Neurontin -) 300 mg PO DAILY [facility] Last Admin: 02/20/19 09:48 Dose: 300 mg Meropenem 500 mg/ Dextrose 100 mls @ 200 mls/hr IVPB Q12H [facility] Last Admin: 02/20/19 09:48 Dose: 200 mls/hr Insulin Aspart (Novolog Vial Sliding Scale -) 1 vial SQ ACHS [facility]; Protocol Last Admin: 02/20/19 12:19 Dose: 2 units Metoprolol Tartrate (Lopressor -) 25 mg PO DAILY [facility] Nystatin (Mycostatin Cream -) 1 applic TP Q6HPO [facility] Last Admin: 02/20/19 12:20 Dose: 1 applic - Objective Vital Signs: Vital Signs Temperature 98.1 F 02/20/19 10:00 Pulse Rate 100 H 02/20/19 11:53 Respiratory Rate 22 H 02/20/19 11:53 Blood Pressure 110/91 02/20/19 11:53 O2 Sat by Pulse Oximetry (%) 95 02/20/19 11:53 Constitutional: Yes: No Distress, Calm Cardiovascular: Yes: S1, S2 Respiratory: Yes: Regular, CTA Bilaterally Gastrointestinal: Yes: Normal Bowel Sounds, Soft Musculoskeletal: Yes: WNL Extremities: Yes: Other Neurological: Yes: Alert, Oriented Psychiatric: Yes: Alert, Oriented Labs: CBC, BMP 02/20/19 06:05 02/20/19 06:05 INR, PTT INR 1.71 (0.83-1.09) H 02/09/19 05:00 Fibrinogen 474.0 mg/dL (238-498) 02/11/19 08:58 Assessment/Plan Problem List - Problems (1) Bilateral leg ulcer Code(s): L97.919 - NON-PRS CHRONIC ULC UNSP PRT OF R LOW LEG W UNSP SEVERITY; L97.929 - NON-PRS CHRONIC ULC UNSP PRT OF L LOW LEG W UNSP SEVERITY (2) Sepsis Code(s): A41.9 - SEPSIS, UNSPECIFIED ORGANISM Qualifiers: Sepsis type: sepsis due to unspecified organism Sepsis acute organ dysfunction status: unspecified Qualified Code(s): A41.9 - Sepsis, unspecified organism (3) ARF (acute renal failure) Code(s): N17.9 - ACUTE KIDNEY FAILURE, UNSPECIFIED (4) Afib Code(s): I48.91 - UNSPECIFIED ATRIAL FIBRILLATION Qualifiers: Atrial fibrillation type: paroxysmal Qualified Code(s): I48.0 - Paroxysmal atrial fibrillation (5) Altered mental status Code(s): R41.82 - ALTERED MENTAL STATUS, UNSPECIFIED (6) Cellulitis Code(s): L03.90 - CELLULITIS, UNSPECIFIED Qualifiers: Site of cellulitis: unspecified site Qualified Code(s): L03.90 - Cellulitis , unspecified (7) DM2 (diabetes mellitus, type 2) Code(s): E11.9 - TYPE 2 DIABETES MELLITUS WITHOUT COMPLICATIONS Qualifiers: Diabetes mellitus frame tender insulin use: with frame tender use Diabetes mellitus complication detail: with other circulatory complications (8) Encephalopathy due to metabolic factor or toxin Code(s): QPO8239 - (9) HTN (hypertension) Code(s): I10 - ESSENTIAL (PRIMARY) HYPERTENSION (10) Hyperkalemia Code(s): E87.5 - HYPERKALEMIA (11) Lactic acidosis Code(s): E87.2 - ACIDOSIS (12) Leukocytosis Code(s): D72.829 - ELEVATED WHITE BLOOD CELL COUNT, UNSPECIFIED (13) Metabolic acidosis Code(s): E87.2 - ACIDOSIS (14) Morbid obesity Code(s): E66.01 - MORBID (SEVERE) OBESITY DUE TO EXCESS CALORIES (15) Severe sepsis Code(s): A41.9 - SEPSIS, UNSPECIFIED ORGANISM; R65.20 - SEVERE SEPSIS WITHOUT SEPTIC SHOCK (16) Venous stasis Code(s): I87.8 - OTHER SPECIFIED DISORDERS OF VEINS Assessment/Plan 53 y.o. female with PMH of chronic b/l LE ulcers, cellulitis, T2 DM, HTN, HLD, CKD, Anemia, GERD, obesity, AFIB, Asthma, and bipolar disorder brought to the ER by her brother for lethargy/AMS for the last several days noted to be in ARF , with leukocytosis, and b/l LE ulcers with malodorous drainage/erythema/ warmth. Currently receiving HD and hypotensive on Vasopressors Shock possibly from Sepsis-- on vasopressors AMS/Toxic metabolic encephalopathy/Uremia Infected b/l LE ulcers/cellulitis ARF on CKD - emergent HD started Hyperkalemia Acidosis Uremia Leukocytosis Lactic acidosis AFIB DM Morbid Obesity Asthma Bipolar d.o. HTN HLD continue abx monitor wound care rest as per the team
[2019-02-20] MEDS: FUROSEMIDE 40 MG/5 ML UNIT-DOSE CUP PO SCH (14:18)
[2019-02-20] MEDS: METOPROLOL TARTRATE 25 MG TABLET (FP) PO SCH (14:19)
--- NOTE | 2019-02-20 14:22 | PN ---
Physical Exam: SUBJECTIVE: Patient seen and examined at bedside this AM. No acute events overnight. Pt is eating fine, and is lying comfortably in bed. OBJECTIVE: Vital Signs Period Temp Pulse Resp BP Sys/Callahan Pulse Ox Last 24 Hr 98.1 F-98.3 F 83-110 19-24 84-126/54-91 95-100 GENERAL: The patient is awake, alert, and fully oriented, in no acute distress. NECK: Trachea midline, full range of motion, supple. LUNGS: Breath sounds equal, no wheezing. HEART: Regular rate and rhythm, S1, S2 without murmur, rub or gallop. ABDOMEN: Soft, nontender, nondistended, no guarding, no rebound. EXTREMITIES: b/l LE ulcer wrapped. PSYCH: Normal mood, normal affect. SKIN: Warm, dry, b/l LE ulcers Laboratory Results - last 24 hr 02/19/19 02/19/19 02/20/19 16:51 22:14 06:05 WBC 7.7 RBC 3.27 L Hgb 9.5 L Hct 28.4 L MCV 86.8 MCH 29.1 MCHC 33.5 RDW 15.4 Plt Count 388 MPV 9.5 PTT (Actin FS) Sodium Potassium Chloride Carbon Dioxide Anion Gap BUN Creatinine Est GFR (CKD-EPI)AfAm Est GFR (CKD-EPI)NonAf POC Glucometer 126 141 Random Glucose Calcium Phosphorus Magnesium 02/20/19 02/20/19 02/20/19 06:05 06:05 06:07 WBC RBC Hgb Hct MCV MCH MCHC RDW Plt Count MPV PTT (Actin FS) 31.6 Sodium 141 Potassium 3.6 Chloride 101 Carbon Dioxide 35 H Anion Gap 6 L BUN 23.2 H Creatinine 0.9 Est GFR (CKD-EPI)AfAm 83.43 Est GFR (CKD-EPI)NonAf 71.98 POC Glucometer 137 Random Glucose 135 H Calcium 9.0 Phosphorus 3.7 Magnesium 1.7 L 02/20/19 12:17 WBC RBC Hgb Hct MCV MCH MCHC RDW Plt Count MPV PTT (Actin FS) Sodium Potassium Chloride Carbon Dioxide Anion Gap BUN Creatinine Est GFR (CKD-EPI)AfAm Est GFR (CKD-EPI)NonAf POC Glucometer 144 Random Glucose Calcium Phosphorus Magnesium Active Medications Generic Name Dose Route Start Last Admin Trade Name Freq PRN Reason Stop Dose Admin Acetaminophen 1,000 mg 02/15/19 18:10 02/15/19 18:22 Ofirmev Injection - IVPB 1,000 mg Q6H PRN Administration FEVER Apixaban 5 mg 02/18/19 22:00 02/20/19 09:48 Eliquis - PO 5 mg BID [facility] Administration Budesonide/Formoterol Fumarate 2 puff 02/08/19 10:00 02/20/19 09:49 Symbicort 80/4.5mcg - IH 2 puff BID [facility] Administration Doxycycline Hyclate 100 mg 02/18/19 18:00 02/20/19 09:48 Vibramycin - PO 100 mg BID@1000,1800 [facility] Administration Furosemide 80 mg 02/20/19 14:00 02/20/19 14:18 Lasix Oral Solution - PO 80 mg BID@0600,1400 [facility] Administration Gabapentin 300 mg 02/08/19 10:00 02/20/19 09:48 Neurontin - PO 300 mg DAILY [facility] Administration Meropenem 500 mg/ Dextrose 100 mls @ 200 mls/hr 02/08/19 22:00 02/20/19 09:48 IVPB 200 mls/hr Q12H [facility] Administration Insulin Aspart 1 vial 02/08/19 11:00 02/20/19 12:19 Novolog Vial Sliding Scale - SQ 2 units ACHS [facility] Administration Protocol Metoprolol Tartrate 25 mg 02/20/19 12:00 02/20/19 14:19 Lopressor - PO 25 mg DAILY [facility] Administration Nystatin 1 applic 02/08/19 12:00 02/20/19 12:20 Mycostatin Cream - TP 1 applic Q6HPO [facility] Administration ASSESSMENT/PLAN: 53F PMH B/L LE chronic Venous stasis ulcerations, Chronic Afib on AC, HTN, poorly controlled T2DM, Dyslipedemia, Bipolar disorder, CKD (non-compliant with medications) BIBEMS to [facility] for altered mental status. ICU admission for emergent HD. Neuro : - pt AO X3 Respiratory - c/w symbicort - saturating well on NC - maintain SaO2>90% - PT recs appreciated RENAL: NOVA s/p emergent dialysis - renal function is improved, no need HD at this time -avoid nephrotoxic agents CARDIO - a-fib w/ RVR; septic shock s/p pressor support - now vitals stable without pressors. - amio gtt if hr >150s - on eliquis ID -> Sepsis likely 2/2 LE Wound Ulcers/AMS/Toxic metabolic encephalopathy/ Uremia - Infected b/l LE ulcers/cellulitis, no abscess seen on exam - Urine and Blood Cultures negative, wound culture LLE: N.L.F. gram negative bacilli, MRSA, group D strep or enterococcus, RLE: L.F. G- bacilli, N.L.F, group d strep or enterococcus. - c/w merropenem day 11 2 more days needed, doxy day 3 9 days more of doxy PO, per Dr De Leon. FEN Monitor lytes, repleted Mg today low Na, diabetic diet PPx: DVT: on eliquis Dispo: Transfer to medicine floors. Thank you for this consultative opportunity. Visit type - Emergency Visit Emergency Visit: Yes ED Registration Date: 02/08/19 Care time: The patient presented to the Emergency Department on the above date and was hospitalized for further evaluation of their emergent condition. - New Patient This patient is new to me today: No - Critical Care Critical Care patient: Yes Total Critical Care Time (in minutes): 35 Critical Care Statement: The care of this patient involved high complexity decision making to prevent further life threatening deterioration of the patient 's condition and/or to evaluate & treat vital organ system(s) failure or risk of failure. - Discharge Referral Referred to [facility] Med [facility] No
--- NOTE | 2019-02-20 15:49 | PN ---
Progress Note, Physician History of Present Illness: Pt seen and examined at bedside. She is awake and alert. She denies shortness of breath. - Current Medication List Current Medications: Active Medications Acetaminophen (Ofirmev Injection -) 1,000 mg IVPB Q6H PRN PRN Reason: FEVER Last Admin: 02/15/19 18:22 Dose: 1,000 mg Apixaban (Eliquis -) 5 mg PO BID [facility] Last Admin: 02/20/19 09:48 Dose: 5 mg Budesonide/Formoterol Fumarate (Symbicort 80/4.5mcg -) 2 puff IH BID [facility] Last Admin: 02/20/19 09:49 Dose: 2 puff Doxycycline Hyclate (Vibramycin -) 100 mg PO BID@1000,1800 [facility] Last Admin: 02/20/19 09:48 Dose: 100 mg Furosemide (Lasix Oral Solution -) 80 mg PO BID@0600,1400 [facility] Last Admin: 02/20/19 14:18 Dose: 80 mg Gabapentin (Neurontin -) 300 mg PO DAILY [facility] Last Admin: 02/20/19 09:48 Dose: 300 mg Meropenem 500 mg/ Dextrose 100 mls @ 200 mls/hr IVPB Q12H [facility] Last Admin: 02/20/19 09:48 Dose: 200 mls/hr Insulin Aspart (Novolog Vial Sliding Scale -) 1 vial SQ ACHS [facility]; Protocol Last Admin: 02/20/19 12:19 Dose: 2 units Metoprolol Tartrate (Lopressor -) 25 mg PO DAILY [facility] Last Admin: 02/20/19 14:19 Dose: 25 mg Nystatin (Mycostatin Cream -) 1 applic TP Q6HPO [facility] Last Admin: 02/20/19 12:20 Dose: 1 applic - Objective Vital Signs: Vital Signs Temperature 98.2 F 02/20/19 14:00 Pulse Rate 110 H 02/20/19 14:00 Respiratory Rate 19 02/20/19 14:00 Blood Pressure 106/67 02/20/19 14:00 O2 Sat by Pulse Oximetry (%) 95 02/20/19 11:53 Constitutional: Yes: Calm Eyes: Yes: Conjunctiva Clear HENT: Yes: Atraumatic Neck: Yes: Supple Cardiovascular: Yes: S1, S2 Respiratory: Yes: CTA Bilaterally Gastrointestinal: Yes: Normal Bowel Sounds, Soft, Abdomen, Obese Genitourinary: Yes: WNL Musculoskeletal: Yes: WNL Edema: Yes Edema: LLE: 1+, RLE: 1+ Neurological: Yes: Oriented Psychiatric: Yes: Oriented Labs: CBC, BMP 02/20/19 06:05 02/20/19 06:05 INR, PTT INR 1.71 (0.83-1.09) H 02/09/19 05:00 Fibrinogen 474.0 mg/dL (238-498) 02/11/19 08:58 Problem List - Problems (1) NOVA (acute kidney injury) Code(s): N17.9 - ACUTE KIDNEY FAILURE, UNSPECIFIED (2) Acute metabolic encephalopathy Code(s): G93.41 - METABOLIC ENCEPHALOPATHY (3) Sepsis Code(s): A41.9 - SEPSIS, UNSPECIFIED ORGANISM Qualifiers: Sepsis type: sepsis due to unspecified organism Sepsis acute organ dysfunction status: unspecified Qualified Code(s): A41.9 - Sepsis, unspecified organism (4) ARF (acute renal failure) Code(s): N17.9 - ACUTE KIDNEY FAILURE, UNSPECIFIED Assessment/Plan Current Medications Generic Name Dose Route Start Last Admin Trade Name Freq PRN Reason Stop Dose Admin Acetaminophen 1,000 mg 02/15/19 18:10 02/15/19 18:22 Ofirmev Injection - IVPB 1,000 mg Q6H PRN Administration FEVER Apixaban 5 mg 02/18/19 22:00 02/20/19 09:48 Eliquis - PO 5 mg BID [facility] Administration Budesonide/Formoterol Fumarate 2 puff 02/08/19 10:00 02/20/19 09:49 Symbicort 80/4.5mcg - IH 2 puff BID [facility] Administration Doxycycline Hyclate 100 mg 02/18/19 18:00 02/20/19 09:48 Vibramycin - PO 100 mg BID@1000,1800 [facility] Administration Furosemide 80 mg 02/20/19 14:00 02/20/19 14:18 Lasix Oral Solution - PO 80 mg BID@0600,1400 [facility] Administration Gabapentin 300 mg 02/08/19 10:00 02/20/19 09:48 Neurontin - PO 300 mg DAILY [facility] Administration Meropenem 500 mg/ Dextrose 100 mls @ 200 mls/hr 02/08/19 22:00 02/20/19 09:48 IVPB 200 mls/hr Q12H [facility] Administration Insulin Aspart 1 vial 02/08/19 11:00 02/20/19 12:19 Novolog Vial Sliding Scale - SQ 2 units ACHS [facility] Administration Protocol Metoprolol Tartrate 25 mg 02/20/19 12:00 02/20/19 14:19 Lopressor - PO 25 mg DAILY [facility] Administration Nystatin 1 applic 02/08/19 12:00 02/20/19 12:20 Mycostatin Cream - TP 1 applic Q6HPO [facility] Administration Impression 1. NOVA 2. hyperkalemia 3. obesity 4. DM 5. a-fib 6. HTN 7. chronic lower extremity ulcers 8. gastritis 9. sepsis 10. hyperglycemia 11. metabolic acidosis 12. acute resp failure 13. hypernatremia Plan - replace mag - cont lasix - monitor volume status - pt/rehab - wound care - 2 gram sodium diabetic diet - monitor pulse ox
[2019-02-20] MEDS ORDERED: ACETAMINOPHEN 1000 MG/100 ML VIAL (NON FORMULARY) IVPB PRN (18:08)
[2019-02-21] MEDS: NYSTATIN 100,000 UNIT/GM TOPICAL CREAM 15 GM TUBE TP SCH ×5 (00:01→23:13)
[2019-02-21] MEDS: FUROSEMIDE 40 MG/5 ML UNIT-DOSE CUP PO SCH ×2 (07:07→13:55)
[2019-02-21] MEDS: INSULIN SLIDING SCALE (NOVOLOG) 1 VIAL SQ SCH ×4 (07:07→22:33)
[2019-02-21 07:28] LABS: HEMATOCRIT 31.2 % (32.4-45.2); HEMOGLOBIN 10.4 GM/dL (10.7-15.3); MCHC 33.2 g/dl (32.0-36.0); MEAN CELL VOLUME 87.3 fl (80-96); MEAN PLT VOLUME 9.8 fl (7.5-11.1); PLATELET COUNT 463 K/MM3 (134-434); RBC 3.57 M/mm3 (3.60-5.2); RDW 15.8 % (11.6-15.6)
[2019-02-21] MEDS: APIXABAN 5 MG TABLET PO SCH ×2 (10:05→22:33)
[2019-02-21] MEDS: GABAPENTIN 300 MG CAPSULE (FP) PO SCH (10:06)
[2019-02-21] MEDS: METOPROLOL TARTRATE 25 MG TABLET (FP) PO SCH (10:06)
[2019-02-21] MEDS: DOXYCYCLINE HYCLATE 100 MG CAPSULE PO SCH ×2 (10:06→18:20)
[2019-02-21] MEDS: MEROPENEM 500 MG in DEXTROSE 5%-WATER 100 ML IVPB SCH ×2 (10:08→21:13)
[2019-02-21] MEDS: BUDESONIDE/FORMETEROL FUMARATE 80/4.5 mcg INHALER IH SCH ×2 (10:29→21:13)
--- NOTE | 2019-02-21 12:57 | PN ---
Progress Note, Physician Chief Complaint: B/L Leg Ulcer DM Afib History of Present Illness: Previous notes and events reviewed awake and alert NAD denies chest pain or SOB no leukocytosis - Current Medication List Current Medications: Active Medications Acetaminophen (Ofirmev Injection -) 1,000 mg IVPB Q6H PRN PRN Reason: FEVER Apixaban (Eliquis -) 5 mg PO BID [facility] Last Admin: 02/21/19 10:05 Dose: 5 mg Budesonide/Formoterol Fumarate (Symbicort 80/4.5mcg -) 2 puff IH BID [facility] Last Admin: 02/21/19 10:29 Dose: 2 puff Doxycycline Hyclate (Vibramycin -) 100 mg PO BID@1000,1800 [facility] Last Admin: 02/21/19 10:06 Dose: 100 mg Furosemide (Lasix Oral Solution -) 80 mg PO BID@0600,1400 [facility] Last Admin: 02/21/19 07:07 Dose: 80 mg Gabapentin (Neurontin -) 300 mg PO DAILY [facility] Last Admin: 02/21/19 10:06 Dose: 300 mg Meropenem 500 mg/ Dextrose 100 mls @ 200 mls/hr IVPB Q12H [facility] Last Admin: 02/21/19 10:08 Dose: 200 mls/hr Insulin Aspart (Novolog Vial Sliding Scale -) 1 vial SQ ACHS [facility]; Protocol Last Admin: 02/21/19 11:45 Dose: 4 unit Metoprolol Tartrate (Lopressor -) 25 mg PO DAILY [facility] Last Admin: 02/21/19 10:06 Dose: 25 mg Nystatin (Mycostatin Cream -) 1 applic TP Q6HPO [facility] Last Admin: 02/21/19 05:46 Dose: 1 applic - Objective Vital Signs: Vital Signs Temperature 98.3 F 02/21/19 08:25 Pulse Rate 99 H 02/21/19 08:25 Respiratory Rate 19 02/21/19 08:25 Blood Pressure 96/56 L 02/21/19 08:25 O2 Sat by Pulse Oximetry (%) 93 L 02/21/19 09:00 Constitutional: Yes: No Distress, Calm Eyes: Yes: Conjunctiva Clear HENT: Yes: Atraumatic Respiratory: Yes: Regular, Diminished Gastrointestinal: Yes: Normal Bowel Sounds, Soft, Abdomen, Obese Genitourinary: Yes: Incontinence Musculoskeletal: Yes: Muscle Weakness Extremities: Yes: WNL Edema: No Neurological: Yes: Alert, Oriented Psychiatric: Yes: Alert, Oriented Labs: CBC, BMP 02/21/19 06:05 02/20/19 06:05 INR, PTT INR 1.71 (0.83-1.09) H 02/09/19 05:00 Fibrinogen 474.0 mg/dL (238-498) 02/11/19 08:58 Microbiology 02/08/19 01:45 Blood - Peripheral Venous Blood Culture - Final NO GROWTH AFTER 5 DAYS INCUBATION 02/08/19 01:45 Blood - Peripheral Venous Blood Culture - Final NO GROWTH AFTER 5 DAYS INCUBATION 02/08/19 09:15 Leg - Right Lower Gram Stain - Final 02/08/19 09:15 Leg - Right Lower Wound Culture - Final Klebsiella Pneumoniae Morganella Morganii Pseudomonas Aeruginosa Enterococcus Faecalis Enterococcus Avium Prevotella Oralis 02/08/19 12:20 Leg - Left Lower Gram Stain - Final 02/08/19 12:20 Leg - Left Lower Wound Culture - Final Serratia Marcescens Enterococcus Faecalis Mr S Aureus 02/08/19 16:00 Urine - Urine Johnson Urine Culture - Final NO GROWTH OBTAINED 02/08/19 09:15 Urine - Urine Johnson Urine Culture - Final NO GROWTH OBTAINED Problem List - Problems (1) NOVA (acute kidney injury) Assessment/Plan: -Renal on board -BUN/Cr 23.2/0.9 -monitor renal function Code(s): N17.9 - ACUTE KIDNEY FAILURE, UNSPECIFIED (2) Acute metabolic encephalopathy Assessment/Plan: -Resolved Code(s): G93.41 - METABOLIC ENCEPHALOPATHY (3) Anemia Assessment/Plan: -Hg 10.4 -monitor Hg daily -transfuse for Hg <7.0 to avoid fluid overload Code(s): D64.9 - ANEMIA, UNSPECIFIED (4) Bilateral leg ulcer Assessment/Plan: -ID on board -no leukocytosis -afebrile -Doxycycline and Meropenem -daily dressing changes -wound culture positive Code(s): L97.919 - NON-PRS CHRONIC ULC UNSP PRT OF R LOW LEG W UNSP SEVERITY; L97.929 - NON-PRS CHRONIC ULC UNSP PRT OF L LOW LEG W UNSP SEVERITY Qualifiers: Non-pressure ulcer stage: limited to breakdown of skin Qualified Code(s): L97.911 - Non-pressure chronic ulcer of unspecified part of right lower leg limited to breakdown of skin; L97.921 - Non-pressure chronic ulcer of unspecified part of left lower leg limited to breakdown of skin (5) DM2 (diabetes mellitus, type 2) Assessment/Plan: -BGM ACHS -ISS -diabetic diet Code(s): E11.9 - TYPE 2 DIABETES MELLITUS WITHOUT COMPLICATIONS Qualifiers: Diabetes mellitus usp insulin use: with usp use Diabetes mellitus complication detail: with other circulatory complications (6) HTN (hypertension) Assessment/Plan: -Metoprolol -low Na diet Code(s): I10 - ESSENTIAL (PRIMARY) HYPERTENSION (7) Afib Assessment/Plan: -Eliquis -tele monitoring Code(s): I48.91 - UNSPECIFIED ATRIAL FIBRILLATION Qualifiers: Atrial fibrillation type: paroxysmal Qualified Code(s): I48.0 - Paroxysmal atrial fibrillation Assessment/Plan see problem list dvt ppx
[2019-02-21] MEDS ORDERED: PT OWN MED DRAWER 7, Y5N ONE ×2 (13:53→21:04)
--- NOTE | 2019-02-21 14:43 | PN ---
Progress Note, Physician History of Present Illness: Pt states she feels better. Was able to ambulate today. Remains afebrile. Has no specific complaints at this time. - Current Medication List Current Medications: Active Medications Acetaminophen (Ofirmev Injection -) 1,000 mg IVPB Q6H PRN PRN Reason: FEVER Apixaban (Eliquis -) 5 mg PO BID [facility] Last Admin: 02/21/19 10:05 Dose: 5 mg Budesonide/Formoterol Fumarate (Symbicort 80/4.5mcg -) 2 puff IH BID [facility] Last Admin: 02/21/19 10:29 Dose: 2 puff Doxycycline Hyclate (Vibramycin -) 100 mg PO BID@1000,1800 [facility] Last Admin: 02/21/19 10:06 Dose: 100 mg Furosemide (Lasix Oral Solution -) 80 mg PO BID@0600,1400 [facility] Last Admin: 02/21/19 13:55 Dose: 80 mg Gabapentin (Neurontin -) 300 mg PO DAILY [facility] Last Admin: 02/21/19 10:06 Dose: 300 mg Meropenem 500 mg/ Dextrose 100 mls @ 200 mls/hr IVPB Q12H [facility] Last Admin: 02/21/19 10:08 Dose: 200 mls/hr Insulin Aspart (Novolog Vial Sliding Scale -) 1 vial SQ ACHS [facility]; Protocol Last Admin: 02/21/19 11:45 Dose: 4 unit Metoprolol Tartrate (Lopressor -) 25 mg PO DAILY [facility] Last Admin: 02/21/19 10:06 Dose: 25 mg Nystatin (Mycostatin Cream -) 1 applic TP Q6HPO [facility] Last Admin: 02/21/19 13:54 Dose: 1 applic - Objective Vital Signs: Vital Signs Temperature 98.9 F 02/21/19 13:15 Pulse Rate 94 H 02/21/19 13:15 Respiratory Rate 20 02/21/19 13:15 Blood Pressure 120/81 02/21/19 13:15 O2 Sat by Pulse Oximetry (%) 93 L 02/21/19 09:00 Constitutional: Yes: No Distress, Calm Cardiovascular: Yes: Regular Rate and Rhythm Respiratory: Yes: Regular Gastrointestinal: Yes: Normal Bowel Sounds, Soft, Abdomen, Obese Extremities: Yes: Erythema (decreased edema/ erythema/warmth tenderness b/l LE) Wound/Incision: Yes: Dressing Dry and Intact Neurological: Yes: Alert Labs: CBC, BMP 02/21/19 06:05 02/20/19 06:05 INR, PTT INR 1.71 (0.83-1.09) H 02/09/19 05:00 Fibrinogen 474.0 mg/dL (238-498) 02/11/19 08:58 Microbiology 02/08/19 01:45 Blood - Peripheral Venous Blood Culture - Final NO GROWTH AFTER 5 DAYS INCUBATION 02/08/19 01:45 Blood - Peripheral Venous Blood Culture - Final NO GROWTH AFTER 5 DAYS INCUBATION 02/08/19 09:15 Leg - Right Lower Gram Stain - Final 02/08/19 09:15 Leg - Right Lower Wound Culture - Final Klebsiella Pneumoniae Morganella Morganii Pseudomonas Aeruginosa Enterococcus Faecalis Enterococcus Avium Prevotella Oralis 02/08/19 12:20 Leg - Left Lower Gram Stain - Final 02/08/19 12:20 Leg - Left Lower Wound Culture - Final Serratia Marcescens Enterococcus Faecalis Mr S Aureus 02/08/19 16:00 Urine - Urine Johnson Urine Culture - Final NO GROWTH OBTAINED 02/08/19 09:15 Urine - Urine Johnson Urine Culture - Final NO GROWTH OBTAINED Problem List - Problems (1) Bilateral leg ulcer Code(s): L97.919 - NON-PRS CHRONIC ULC UNSP PRT OF R LOW LEG W UNSP SEVERITY; L97.929 - NON-PRS CHRONIC ULC UNSP PRT OF L LOW LEG W UNSP SEVERITY Qualifiers: Non-pressure ulcer stage: limited to breakdown of skin Qualified Code(s): L97.911 - Non-pressure chronic ulcer of unspecified part of right lower leg limited to breakdown of skin; L97.921 - Non-pressure chronic ulcer of unspecified part of left lower leg limited to breakdown of skin (2) Sepsis Code(s): A41.9 - SEPSIS, UNSPECIFIED ORGANISM Qualifiers: Sepsis type: sepsis due to unspecified organism Sepsis acute organ dysfunction status: unspecified Qualified Code(s): A41.9 - Sepsis, unspecified organism (3) ARF (acute renal failure) Code(s): N17.9 - ACUTE KIDNEY FAILURE, UNSPECIFIED (4) Afib Code(s): I48.91 - UNSPECIFIED ATRIAL FIBRILLATION Qualifiers: Atrial fibrillation type: paroxysmal Qualified Code(s): I48.0 - Paroxysmal atrial fibrillation (5) Altered mental status Code(s): R41.82 - ALTERED MENTAL STATUS, UNSPECIFIED (6) Cellulitis Code(s): L03.90 - CELLULITIS, UNSPECIFIED Qualifiers: Site of cellulitis: unspecified site Qualified Code(s): L03.90 - Cellulitis , unspecified (7) DM2 (diabetes mellitus, type 2) Code(s): E11.9 - TYPE 2 DIABETES MELLITUS WITHOUT COMPLICATIONS Qualifiers: Diabetes mellitus care home insulin use: with medical terminologist use Diabetes mellitus complication detail: with other circulatory complications (8) Encephalopathy due to metabolic factor or toxin Code(s): [id number] - (9) HTN (hypertension) Code(s): I10 - ESSENTIAL (PRIMARY) HYPERTENSION (10) Hyperkalemia Code(s): E87.5 - HYPERKALEMIA (11) Lactic acidosis Code(s): E87.2 - ACIDOSIS (12) Leukocytosis Code(s): D72.829 - ELEVATED WHITE BLOOD CELL COUNT, UNSPECIFIED (13) Metabolic acidosis Code(s): E87.2 - ACIDOSIS (14) Morbid obesity Code(s): E66.01 - MORBID (SEVERE) OBESITY DUE TO EXCESS CALORIES (15) Severe sepsis Code(s): A41.9 - SEPSIS, UNSPECIFIED ORGANISM; R65.20 - SEVERE SEPSIS WITHOUT SEPTIC SHOCK (16) Venous stasis Code(s): I87.8 - OTHER SPECIFIED DISORDERS OF VEINS Assessment/Plan 53 y.o. female with PMH of chronic b/l LE ulcers, cellulitis, T2 DM, HTN, HLD, CKD, Anemia, GERD, obesity, AFIB, Asthma, and bipolar disorder brought to the ER by her brother for lethargy/AMS for the last several days noted to be in ARF , with leukocytosis, and b/l LE ulcers with malodorous drainage/erythema/warmth s/p Septic shock AMS/Toxic metabolic encephalopathy/Uremia - resolved Infected b/l LE ulcers/cellulitis - improving ARF on CKD - renal function improved Leukocytosis - resolved AFIB DM Morbid Obesity Asthma Bipolar d.o. HTN HLD -- continue current antibiotics as discussed -- Pt is afebrile without leukocytosis, clinically improving -- continue wound care
--- NOTE | 2019-02-21 14:52 | PN ---
Progress Note (short form) - Note Progress Note: PULMONARY Denies shortness of breath or chest pain. Stood with PT today. Vital Signs Period Temp Pulse Resp BP Sys/Callahan Pulse Ox Last 24 Hr 97.9 F-98.9 F 92-99 19-22 89-120/43-81 93-94 Gen: NAD at rest Heart: RRR Lung: decreased breath sounds at the bases Abd: soft, nontender Ext: wrapped CBC, BMP 02/21/19 06:05 02/20/19 06:05 Active Medications Acetaminophen (Ofirmev Injection -) 1,000 mg IVPB Q6H PRN PRN Reason: FEVER Apixaban (Eliquis -) 5 mg PO BID [facility] Last Admin: 02/21/19 10:05 Dose: 5 mg Budesonide/Formoterol Fumarate (Symbicort 80/4.5mcg -) 2 puff IH BID [facility] Last Admin: 02/21/19 10:29 Dose: 2 puff Doxycycline Hyclate (Vibramycin -) 100 mg PO BID@1000,1800 [facility] Last Admin: 02/21/19 10:06 Dose: 100 mg Furosemide (Lasix Oral Solution -) 80 mg PO BID@0600,1400 [facility] Last Admin: 02/21/19 13:55 Dose: 80 mg Gabapentin (Neurontin -) 300 mg PO DAILY [facility] Last Admin: 02/21/19 10:06 Dose: 300 mg Meropenem 500 mg/ Dextrose 100 mls @ 200 mls/hr IVPB Q12H [facility] Last Admin: 02/21/19 10:08 Dose: 200 mls/hr Insulin Aspart (Novolog Vial Sliding Scale -) 1 vial SQ ACHS [facility]; Protocol Last Admin: 02/21/19 11:45 Dose: 4 unit Metoprolol Tartrate (Lopressor -) 25 mg PO DAILY [facility] Last Admin: 02/21/19 10:06 Dose: 25 mg Nystatin (Mycostatin Cream -) 1 applic TP Q6HPO [facility] Last Admin: 02/21/19 13:54 Dose: 1 applic A/P s/p Acute Respiratory Failure Cellulitis/Infected Leg Ulcers Septic Shock resolving Acute Kidney Injury requiring emergent HD now improving Hyperkalemia improved Lactic Acidosis resolved Atrial Fibrillation HTN DM Hyperlipidemia Anemia - continue antibiotics per ID - wound care - monitor urine output, creatinine - replete lytes - O2 to keep Spo2 >90% - BiPAP at night and PRN during day - rate control - continue anticoagulation - DVT/GI prophylaxis
[2019-02-22] MEDS: FUROSEMIDE 40 MG/5 ML UNIT-DOSE CUP PO SCH ×2 (05:42→15:13)
[2019-02-22] MEDS: NYSTATIN 100,000 UNIT/GM TOPICAL CREAM 15 GM TUBE TP SCH ×3 (05:43→17:51)
[2019-02-22] MEDS: INSULIN SLIDING SCALE (NOVOLOG) 1 VIAL SQ SCH ×4 (07:04→21:26)
[2019-02-22 07:24] LABS: HEMATOCRIT 32.5 % (32.4-45.2); HEMOGLOBIN 10.5 GM/dL (10.7-15.3); MCH 28.6 pg (25.7-33.7); MCHC 32.4 g/dl (32.0-36.0); MEAN CELL VOLUME 88.1 fl (80-96); MEAN PLT VOLUME 10.1 fl (7.5-11.1); PLATELET COUNT 486 K/MM3 (134-434); RBC 3.69 M/mm3 (3.60-5.2); RDW 15.9 % (11.6-15.6)
[2019-02-22 07:57] LABS: ALBUMIN 2.6 g/dl (3.4-5.0); BILIRUBIN,TOTAL 0.6 mg/dL (0.2-1); BLOOD UREA NITROGEN 29.7 mg/dL (7-18); CALCIUM 9.4 mg/dL (8.5-10.1); CREATININE 1.2 mg/dL (0.55-1.3); POTASSIUM 3.5 mmol/L (3.5-5.1); TOT PROT 7.2 g/dl (6.4-8.2)
[2019-02-22] MEDS ORDERED: PT OWN MED DRAWER 7, Y5N ONE ×4 (09:13→21:06)
[2019-02-22] MEDS: DOXYCYCLINE HYCLATE 100 MG CAPSULE PO SCH ×2 (09:19→17:51)
[2019-02-22] MEDS: MEROPENEM 500 MG in DEXTROSE 5%-WATER 100 ML IVPB SCH ×2 (09:19→21:25)
[2019-02-22] MEDS: GABAPENTIN 300 MG CAPSULE (FP) PO SCH (09:20)
[2019-02-22] MEDS: METOPROLOL TARTRATE 25 MG TABLET (FP) PO SCH (09:20)
[2019-02-22] MEDS: BUDESONIDE/FORMETEROL FUMARATE 80/4.5 mcg INHALER IH SCH ×2 (09:20→21:26)
[2019-02-22] MEDS: APIXABAN 5 MG TABLET PO SCH ×2 (09:20→21:26)
--- NOTE | 2019-02-22 11:20 | PN ---
Progress Note, Physician Chief Complaint: B/L Leg Ulcer DM Afib History of Present Illness: Previous notes and events reviewed awake and alert NAD denies chest pain or SOB no leukocytosis sts feeling better - Current Medication List Current Medications: Active Medications Acetaminophen (Ofirmev Injection -) 1,000 mg IVPB Q6H PRN PRN Reason: FEVER Apixaban (Eliquis -) 5 mg PO BID [facility] Last Admin: 02/22/19 09:20 Dose: 5 mg Budesonide/Formoterol Fumarate (Symbicort 80/4.5mcg -) 2 puff IH BID [facility] Last Admin: 02/22/19 09:20 Dose: 2 puff Doxycycline Hyclate (Vibramycin -) 100 mg PO BID@1000,1800 [facility] Last Admin: 02/22/19 09:19 Dose: 100 mg Furosemide (Lasix Oral Solution -) 80 mg PO BID@0600,1400 [facility] Last Admin: 02/22/19 05:42 Dose: 80 mg Gabapentin (Neurontin -) 300 mg PO DAILY [facility] Last Admin: 02/22/19 09:20 Dose: 300 mg Meropenem 500 mg/ Dextrose 100 mls @ 200 mls/hr IVPB Q12H [facility] Last Admin: 02/22/19 09:19 Dose: 200 mls/hr Insulin Aspart (Novolog Vial Sliding Scale -) 1 vial SQ ACHS [facility]; Protocol Last Admin: 02/22/19 07:04 Dose: 2 unit Metoprolol Tartrate (Lopressor -) 25 mg PO DAILY [facility] Last Admin: 02/22/19 09:20 Dose: 25 mg Nystatin (Mycostatin Cream -) 1 applic TP Q6HPO [facility] Last Admin: 02/22/19 05:43 Dose: 1 applic - Objective Vital Signs: Vital Signs Temperature 98.3 F 02/22/19 06:00 Pulse Rate 103 H 02/22/19 06:00 Respiratory Rate 20 02/22/19 06:00 Blood Pressure 100/76 02/22/19 06:00 O2 Sat by Pulse Oximetry (%) 90 L 02/21/19 20:24 Constitutional: Yes: No Distress, Calm, Obese Eyes: Yes: Conjunctiva Clear HENT: Yes: Atraumatic Cardiovascular: Yes: Pulse Irregular Respiratory: Yes: Regular, CTA Bilaterally Gastrointestinal: Yes: Normal Bowel Sounds, Soft, Abdomen, Obese Musculoskeletal: Yes: Muscle Weakness Extremities: Yes: WNL Edema: No Neurological: Yes: Alert, Oriented Psychiatric: Yes: Alert, Oriented Labs: CBC, BMP 02/22/19 05:55 02/22/19 06:00 INR, PTT INR 1.71 (0.83-1.09) H 02/09/19 05:00 Fibrinogen 474.0 mg/dL (238-498) 02/11/19 08:58 Microbiology 02/08/19 01:45 Blood - Peripheral Venous Blood Culture - Final NO GROWTH AFTER 5 DAYS INCUBATION 02/08/19 01:45 Blood - Peripheral Venous Blood Culture - Final NO GROWTH AFTER 5 DAYS INCUBATION 02/08/19 09:15 Leg - Right Lower Gram Stain - Final 02/08/19 09:15 Leg - Right Lower Wound Culture - Final Klebsiella Pneumoniae Morganella Morganii Pseudomonas Aeruginosa Enterococcus Faecalis Enterococcus Avium Prevotella Oralis 02/08/19 12:20 Leg - Left Lower Gram Stain - Final 02/08/19 12:20 Leg - Left Lower Wound Culture - Final Serratia Marcescens Enterococcus Faecalis Mr S Aureus 02/08/19 16:00 Urine - Urine Johnson Urine Culture - Final NO GROWTH OBTAINED 02/08/19 09:15 Urine - Urine Johnson Urine Culture - Final NO GROWTH OBTAINED Problem List - Problems (1) NOVA (acute kidney injury) Assessment/Plan: -Renal on board -BUN/Cr 29.7/1.7 -monitor renal function Code(s): N17.9 - ACUTE KIDNEY FAILURE, UNSPECIFIED (2) Acute metabolic encephalopathy Assessment/Plan: -Resolved Code(s): G93.41 - METABOLIC ENCEPHALOPATHY (3) Anemia Assessment/Plan: -Hg 10.5 -monitor Hg daily -transfuse for Hg <7.0 to avoid fluid overload Code(s): D64.9 - ANEMIA, UNSPECIFIED (4) Bilateral leg ulcer Assessment/Plan: -ID on board -no leukocytosis -afebrile -Doxycycline and Meropenem -daily dressing changes -wound culture positive Code(s): L97.919 - NON-PRS CHRONIC ULC UNSP PRT OF R LOW LEG W UNSP SEVERITY; L97.929 - NON-PRS CHRONIC ULC UNSP PRT OF L LOW LEG W UNSP SEVERITY Qualifiers: Non-pressure ulcer stage: limited to breakdown of skin Qualified Code(s): L97.911 - Non-pressure chronic ulcer of unspecified part of right lower leg limited to breakdown of skin; L97.921 - Non-pressure chronic ulcer of unspecified part of left lower leg limited to breakdown of skin (5) DM2 (diabetes mellitus, type 2) Assessment/Plan: -BGM ACHS -ISS -diabetic diet Code(s): E11.9 - TYPE 2 DIABETES MELLITUS WITHOUT COMPLICATIONS Qualifiers: Diabetes mellitus termite helper insulin use: with snf use Diabetes mellitus complication detail: with other circulatory complications (6) HTN (hypertension) Assessment/Plan: -Metoprolol -low Na diet Code(s): I10 - ESSENTIAL (PRIMARY) HYPERTENSION (7) Afib Assessment/Plan: -Eliquis -tele monitoring Code(s): I48.91 - UNSPECIFIED ATRIAL FIBRILLATION Qualifiers: Atrial fibrillation type: paroxysmal Qualified Code(s): I48.0 - Paroxysmal atrial fibrillation Assessment/Plan see problem list dvt ppx discussed with patient the need for PT at time of discharge and recommend benefit of SNF, patient is refusing PT at SNF for discharge
--- NOTE | 2019-02-22 13:35 | PN ---
Progress Note (short form) - Note Progress Note: PULMONARY Denies shortness of breath or chest pain. Stood again with PT today. Vital Signs Period Temp Pulse Resp BP Sys/Callahan Pulse Ox Last 24 Hr 98 F-98.3 F 92-103 18-20 90-100/40-76 90 Gen: NAD at rest Heart: RRR Lung: decreased breath sounds at the bases Abd: soft, nontender Ext: wrapped CBC, BMP 02/22/19 05:55 02/22/19 06:00 Active Medications Acetaminophen (Ofirmev Injection -) 1,000 mg IVPB Q6H PRN PRN Reason: FEVER Apixaban (Eliquis -) 5 mg PO BID [facility] Last Admin: 02/22/19 09:20 Dose: 5 mg Budesonide/Formoterol Fumarate (Symbicort 80/4.5mcg -) 2 puff IH BID [facility] Last Admin: 02/22/19 09:20 Dose: 2 puff Doxycycline Hyclate (Vibramycin -) 100 mg PO BID@1000,1800 [facility] Last Admin: 02/22/19 09:19 Dose: 100 mg Furosemide (Lasix Oral Solution -) 80 mg PO BID@0600,1400 [facility] Last Admin: 02/22/19 05:42 Dose: 80 mg Gabapentin (Neurontin -) 300 mg PO DAILY [facility] Last Admin: 02/22/19 09:20 Dose: 300 mg Meropenem 500 mg/ Dextrose 100 mls @ 200 mls/hr IVPB Q12H [facility] Last Admin: 02/22/19 09:19 Dose: 200 mls/hr Insulin Aspart (Novolog Vial Sliding Scale -) 1 vial SQ ACHS [facility]; Protocol Last Admin: 02/22/19 12:03 Dose: 2 unit Metoprolol Tartrate (Lopressor -) 25 mg PO DAILY [facility] Last Admin: 02/22/19 09:20 Dose: 25 mg Nystatin (Mycostatin Cream -) 1 applic TP Q6HPO [facility] Last Admin: 02/22/19 12:04 Dose: 1 applic A/P s/p Acute Respiratory Failure Cellulitis/Infected Leg Ulcers Septic Shock resolving Acute Kidney Injury requiring emergent HD now improving Hyperkalemia improved Lactic Acidosis resolved Atrial Fibrillation HTN DM Hyperlipidemia Anemia - continue antibiotics per ID - wound care - monitor urine output, creatinine - replete lytes - O2 to keep Spo2 >90% - BiPAP at night and PRN during day - rate control - continue anticoagulation - rehab/PT - DVT/GI prophylaxis
--- NOTE | 2019-02-22 14:15 | PN ---
Progress Note, Physician History of Present Illness: Pt doing well. Has no specific complaints. Was able to stand today. - Current Medication List Current Medications: Active Medications Acetaminophen (Ofirmev Injection -) 1,000 mg IVPB Q6H PRN PRN Reason: FEVER Apixaban (Eliquis -) 5 mg PO BID [facility] Last Admin: 02/22/19 09:20 Dose: 5 mg Budesonide/Formoterol Fumarate (Symbicort 80/4.5mcg -) 2 puff IH BID [facility] Last Admin: 02/22/19 09:20 Dose: 2 puff Doxycycline Hyclate (Vibramycin -) 100 mg PO BID@1000,1800 [facility] Last Admin: 02/22/19 09:19 Dose: 100 mg Furosemide (Lasix Oral Solution -) 80 mg PO BID@0600,1400 [facility] Last Admin: 02/22/19 05:42 Dose: 80 mg Gabapentin (Neurontin -) 300 mg PO DAILY [facility] Last Admin: 02/22/19 09:20 Dose: 300 mg Meropenem 500 mg/ Dextrose 100 mls @ 200 mls/hr IVPB Q12H [facility] Last Admin: 02/22/19 09:19 Dose: 200 mls/hr Insulin Aspart (Novolog Vial Sliding Scale -) 1 vial SQ ACHS [facility]; Protocol Last Admin: 02/22/19 12:03 Dose: 2 unit Metoprolol Tartrate (Lopressor -) 25 mg PO DAILY [facility] Last Admin: 02/22/19 09:20 Dose: 25 mg Nystatin (Mycostatin Cream -) 1 applic TP Q6HPO [facility] Last Admin: 02/22/19 12:04 Dose: 1 applic - Objective Vital Signs: Vital Signs Temperature 97.3 F L 02/22/19 14:06 Pulse Rate 59 L 02/22/19 14:06 Respiratory Rate 18 02/22/19 14:06 Blood Pressure 93/52 L 02/22/19 14:06 O2 Sat by Pulse Oximetry (%) 90 L 02/21/19 20:24 Constitutional: Yes: No Distress, Calm Cardiovascular: Yes: Regular Rate and Rhythm Respiratory: Yes: Regular Gastrointestinal: Yes: Normal Bowel Sounds, Soft, Abdomen, Obese Genitourinary: Yes: WNL Wound/Incision: Yes: Other (b/l LE with resolving erythema/edema, no warmth/ less tender, less drainage from ulcers) Neurological: Yes: Alert, Oriented Labs: CBC, BMP 02/22/19 05:55 02/22/19 06:00 INR, PTT INR 1.71 (0.83-1.09) H 02/09/19 05:00 Fibrinogen 474.0 mg/dL (238-498) 02/11/19 08:58 Microbiology 02/08/19 01:45 Blood - Peripheral Venous Blood Culture - Final NO GROWTH AFTER 5 DAYS INCUBATION 02/08/19 01:45 Blood - Peripheral Venous Blood Culture - Final NO GROWTH AFTER 5 DAYS INCUBATION 02/08/19 09:15 Leg - Right Lower Gram Stain - Final 02/08/19 09:15 Leg - Right Lower Wound Culture - Final Klebsiella Pneumoniae Morganella Morganii Pseudomonas Aeruginosa Enterococcus Faecalis Enterococcus Avium Prevotella Oralis 02/08/19 12:20 Leg - Left Lower Gram Stain - Final 02/08/19 12:20 Leg - Left Lower Wound Culture - Final Serratia Marcescens Enterococcus Faecalis Mr S Aureus 02/08/19 16:00 Urine - Urine Johnson Urine Culture - Final NO GROWTH OBTAINED 02/08/19 09:15 Urine - Urine Johnson Urine Culture - Final NO GROWTH OBTAINED Problem List - Problems (1) Bilateral leg ulcer Code(s): L97.919 - NON-PRS CHRONIC ULC UNSP PRT OF R LOW LEG W UNSP SEVERITY; L97.929 - NON-PRS CHRONIC ULC UNSP PRT OF L LOW LEG W UNSP SEVERITY Qualifiers: Non-pressure ulcer stage: limited to breakdown of skin Qualified Code(s): L97.911 - Non-pressure chronic ulcer of unspecified part of right lower leg limited to breakdown of skin; L97.921 - Non-pressure chronic ulcer of unspecified part of left lower leg limited to breakdown of skin (2) Sepsis Code(s): A41.9 - SEPSIS, UNSPECIFIED ORGANISM Qualifiers: Sepsis type: sepsis due to unspecified organism Sepsis acute organ dysfunction status: unspecified Qualified Code(s): A41.9 - Sepsis, unspecified organism (3) ARF (acute renal failure) Code(s): N17.9 - ACUTE KIDNEY FAILURE, UNSPECIFIED (4) Afib Code(s): I48.91 - UNSPECIFIED ATRIAL FIBRILLATION Qualifiers: Atrial fibrillation type: paroxysmal Qualified Code(s): I48.0 - Paroxysmal atrial fibrillation (5) Altered mental status Code(s): R41.82 - ALTERED MENTAL STATUS, UNSPECIFIED (6) Cellulitis Code(s): L03.90 - CELLULITIS, UNSPECIFIED Qualifiers: Site of cellulitis: unspecified site Qualified Code(s): L03.90 - Cellulitis , unspecified (7) DM2 (diabetes mellitus, type 2) Code(s): E11.9 - TYPE 2 DIABETES MELLITUS WITHOUT COMPLICATIONS Qualifiers: Diabetes mellitus chcf insulin use: with medical terminologist use Diabetes mellitus complication detail: with other circulatory complications (8) Encephalopathy due to metabolic factor or toxin Code(s): [id number] - (9) HTN (hypertension) Code(s): I10 - ESSENTIAL (PRIMARY) HYPERTENSION (10) Hyperkalemia Code(s): E87.5 - HYPERKALEMIA (11) Lactic acidosis Code(s): E87.2 - ACIDOSIS (12) Leukocytosis Code(s): D72.829 - ELEVATED WHITE BLOOD CELL COUNT, UNSPECIFIED (13) Metabolic acidosis Code(s): E87.2 - ACIDOSIS (14) Morbid obesity Code(s): E66.01 - MORBID (SEVERE) OBESITY DUE TO EXCESS CALORIES (15) Severe sepsis Code(s): A41.9 - SEPSIS, UNSPECIFIED ORGANISM; R65.20 - SEVERE SEPSIS WITHOUT SEPTIC SHOCK (16) Venous stasis Code(s): I87.8 - OTHER SPECIFIED DISORDERS OF VEINS Assessment/Plan 53 y.o. female with PMH of chronic b/l LE ulcers, cellulitis, T2 DM, HTN, HLD, CKD, Anemia, GERD, obesity, AFIB, Asthma, and bipolar disorder brought to the ER by her brother for lethargy/AMS for the last several days noted to be in ARF , with leukocytosis, and b/l LE ulcers with malodorous drainage/erythema/warmth s/p Septic shock AMS/Toxic metabolic encephalopathy/Uremia - resolved Infected b/l LE ulcers/cellulitis - improving ARF - resolved Leukocytosis - resolved AFIB DM Morbid Obesity Asthma Bipolar d.o. HTN HLD -- continue antibiotics -- clinically improving -- continue wound care
[2019-02-23] MEDS: NYSTATIN 100,000 UNIT/GM TOPICAL CREAM 15 GM TUBE TP SCH ×4 (00:32→17:21)
[2019-02-23] MEDS ORDERED: PT OWN MED DRAWER 7, Y5N ONE ×4 (01:08→22:08)
[2019-02-23] MEDS: INSULIN SLIDING SCALE (NOVOLOG) 1 VIAL SQ SCH ×4 (06:43→22:27)
[2019-02-23] MEDS: FUROSEMIDE 40 MG/5 ML UNIT-DOSE CUP PO SCH ×2 (06:43→14:45)
[2019-02-23 08:43] LABS: HEMATOCRIT 32.1 % (32.4-45.2); HEMOGLOBIN 10.4 GM/dL (10.7-15.3); MCH 28.8 pg (25.7-33.7); MCHC 32.6 g/dl (32.0-36.0); MEAN CELL VOLUME 88.5 fl (80-96); PLATELET COUNT 460 K/MM3 (134-434); RBC 3.62 M/mm3 (3.60-5.2); RDW 16.3 % (11.6-15.6); WHITE BLOOD COUNT 7.3 K/mm3 (4.0-10.0)
--- NOTE | 2019-02-23 09:21 | PN ---
Progress Note, Physician - Current Medication List Current Medications: Active Medications Acetaminophen (Ofirmev Injection -) 1,000 mg IVPB Q6H PRN PRN Reason: FEVER Apixaban (Eliquis -) 5 mg PO BID [facility] Last Admin: 02/22/19 21:26 Dose: 5 mg Budesonide/Formoterol Fumarate (Symbicort 80/4.5mcg -) 2 puff IH BID [facility] Last Admin: 02/22/19 21:26 Dose: 2 puff Doxycycline Hyclate (Vibramycin -) 100 mg PO BID@1000,1800 [facility] Last Admin: 02/22/19 17:51 Dose: 100 mg Furosemide (Lasix Oral Solution -) 80 mg PO BID@0600,1400 [facility] Last Admin: 02/23/19 06:43 Dose: 80 mg Gabapentin (Neurontin -) 300 mg PO DAILY [facility] Last Admin: 02/22/19 09:20 Dose: 300 mg Meropenem 500 mg/ Dextrose 100 mls @ 200 mls/hr IVPB Q12H [facility] Last Admin: 02/22/19 21:25 Dose: 200 mls/hr Insulin Aspart (Novolog Vial Sliding Scale -) 1 vial SQ ACHS [facility]; Protocol Last Admin: 02/23/19 06:43 Dose: 2 unit Metoprolol Tartrate (Lopressor -) 25 mg PO DAILY [facility] Last Admin: 02/22/19 09:20 Dose: 25 mg Nystatin (Mycostatin Cream -) 1 applic TP Q6HPO [facility] Last Admin: 02/23/19 06:44 Dose: 1 applic - Objective Vital Signs: Vital Signs Temperature 98.1 F 02/23/19 06:00 Pulse Rate 111 H 02/23/19 06:00 Respiratory Rate 18 02/23/19 06:00 Blood Pressure 100/40 L 02/23/19 06:00 O2 Sat by Pulse Oximetry (%) 95 02/22/19 21:00 Labs: CBC, BMP 02/23/19 06:42 02/22/19 06:00 INR, PTT INR 1.71 (0.83-1.09) H 02/09/19 05:00 Fibrinogen 474.0 mg/dL (238-498) 02/11/19 08:58 Assessment/Plan - Problems (1) NOVA (acute kidney injury) Assessment/Plan: -Renal on board -BUN/Cr 29.7/1.7 -monitor renal function Code(s): N17.9 - ACUTE KIDNEY FAILURE, UNSPECIFIED (2) Acute metabolic encephalopathy Assessment/Plan: -Resolved Code(s): G93.41 - METABOLIC ENCEPHALOPATHY (3) Anemia Assessment/Plan: -Hg 10.5 -monitor Hg daily -transfuse for Hg <7.0 to avoid fluid overload Code(s): D64.9 - ANEMIA, UNSPECIFIED (4) Bilateral leg ulcer Assessment/Plan: -ID on board -no leukocytosis -afebrile -Doxycycline and Meropenem -daily dressing changes -wound culture positive Microbiology 02/08/19 01:45 Blood - Peripheral Venous Blood Culture - Final NO GROWTH AFTER 5 DAYS INCUBATION 02/08/19 01:45 Blood - Peripheral Venous Blood Culture - Final NO GROWTH AFTER 5 DAYS INCUBATION 02/08/19 09:15 Leg - Right Lower Gram Stain - Final 02/08/19 09:15 Leg - Right Lower Wound Culture - Final Klebsiella Pneumoniae Morganella Morganii Pseudomonas Aeruginosa Enterococcus Faecalis Enterococcus Avium Prevotella Oralis 02/08/19 12:20 Leg - Left Lower Gram Stain - Final 02/08/19 12:20 Leg - Left Lower Wound Culture - Final Serratia Marcescens Enterococcus Faecalis Mr S Aureus 02/08/19 16:00 Urine - Urine Johnson Urine Culture - Final NO GROWTH OBTAINED 02/08/19 09:15 Urine - Urine Johnson Urine Culture - Final NO GROWTH OBTAINED Code(s): L97.919 - NON-PRS CHRONIC ULC UNSP PRT OF R LOW LEG W UNSP SEVERITY; L97.929 - NON-PRS CHRONIC ULC UNSP PRT OF L LOW LEG W UNSP SEVERITY Qualifiers: Non-pressure ulcer stage: limited to breakdown of skin Qualified Code(s): L97.911 - Non-pressure chronic ulcer of unspecified part of right lower leg limited to breakdown of skin; L97.921 - Non-pressure chronic ulcer of unspecified part of left lower leg limited to breakdown of skin (5) DM2 (diabetes mellitus, type 2) Assessment/Plan: -BGM ACHS -ISS -diabetic diet Code(s): E11.9 - TYPE 2 DIABETES MELLITUS WITHOUT COMPLICATIONS Qualifiers: Diabetes mellitus termite helper insulin use: with termite helper use Diabetes mellitus complication detail: with other circulatory complications (6) HTN (hypertension) Assessment/Plan: -Metoprolol -low Na diet Code(s): I10 - ESSENTIAL (PRIMARY) HYPERTENSION (7) Afib Assessment/Plan: -Eliquis -tele monitoring Code(s): I48.91 - UNSPECIFIED ATRIAL FIBRILLATION Qualifiers: Atrial fibrillation type: paroxysmal Qualified Code(s): I48.0 - Paroxysmal atrial fibrillation
[2019-02-23] MEDS: GABAPENTIN 300 MG CAPSULE (FP) PO SCH (11:02)
[2019-02-23] MEDS: DOXYCYCLINE HYCLATE 100 MG CAPSULE PO SCH ×2 (11:02→17:18)
[2019-02-23] MEDS: APIXABAN 5 MG TABLET PO SCH ×2 (11:02→22:26)
[2019-02-23] MEDS: MEROPENEM 500 MG in DEXTROSE 5%-WATER 100 ML IVPB SCH ×2 (11:02→22:25)
[2019-02-23] MEDS: BUDESONIDE/FORMETEROL FUMARATE 80/4.5 mcg INHALER IH SCH ×2 (11:03→22:28)
--- NOTE | 2019-02-23 11:21 | PN ---
Progress Note, Physician History of Present Illness: PULMONARY ALERT,OOB- CHAIR,COMFORTABLE,-SOB - Current Medication List Current Medications: Active Medications Acetaminophen (Ofirmev Injection -) 1,000 mg IVPB Q6H PRN PRN Reason: FEVER Apixaban (Eliquis -) 5 mg PO BID [facility] Last Admin: 02/23/19 11:02 Dose: 5 mg Budesonide/Formoterol Fumarate (Symbicort 80/4.5mcg -) 2 puff IH BID [facility] Last Admin: 02/23/19 11:03 Dose: 2 puff Doxycycline Hyclate (Vibramycin -) 100 mg PO BID@1000,1800 [facility] Last Admin: 02/23/19 11:02 Dose: 100 mg Furosemide (Lasix Oral Solution -) 80 mg PO BID@0600,1400 [facility] Last Admin: 02/23/19 06:43 Dose: 80 mg Gabapentin (Neurontin -) 300 mg PO DAILY [facility] Last Admin: 02/23/19 11:02 Dose: 300 mg Meropenem 500 mg/ Dextrose 100 mls @ 200 mls/hr IVPB Q12H [facility] Last Admin: 02/23/19 11:02 Dose: 200 mls/hr Insulin Aspart (Novolog Vial Sliding Scale -) 1 vial SQ ACHS [facility]; Protocol Last Admin: 02/23/19 06:43 Dose: 2 unit Metoprolol Tartrate (Lopressor -) 25 mg PO DAILY [facility] Last Admin: 02/22/19 09:20 Dose: 25 mg Nystatin (Mycostatin Cream -) 1 applic TP Q6HPO [facility] Last Admin: 02/23/19 11:03 Dose: 1 applic - Objective Vital Signs: Vital Signs Temperature 98 F 02/23/19 11:00 Pulse Rate 105 H 02/23/19 11:00 Respiratory Rate 18 02/23/19 11:00 Blood Pressure 94/63 02/23/19 11:00 O2 Sat by Pulse Oximetry (%) 95 02/22/19 21:00 Constitutional: Yes: Calm, Obese Eyes: Yes: WNL HENT: Yes: WNL Neck: Yes: WNL Cardiovascular: Yes: Pulse Irregular, S1, S2 Respiratory: Yes: Diminished Gastrointestinal: Yes: Normal Bowel Sounds, Soft, Abdomen, Obese Extremities: Yes: Other (WRAPPED) Labs: CBC, BMP 02/23/19 06:42 02/22/19 06:00 INR, PTT INR 1.71 (0.83-1.09) H 02/09/19 05:00 Fibrinogen 474.0 mg/dL (238-498) 02/11/19 08:58 Problem List - Problems (1) NOVA (acute kidney injury) Code(s): N17.9 - ACUTE KIDNEY FAILURE, UNSPECIFIED (2) Anemia Code(s): D64.9 - ANEMIA, UNSPECIFIED (3) Bilateral leg ulcer Code(s): L97.919 - NON-PRS CHRONIC ULC UNSP PRT OF R LOW LEG W UNSP SEVERITY; L97.929 - NON-PRS CHRONIC ULC UNSP PRT OF L LOW LEG W UNSP SEVERITY Qualifiers: Non-pressure ulcer stage: limited to breakdown of skin Qualified Code(s): L97.911 - Non-pressure chronic ulcer of unspecified part of right lower leg limited to breakdown of skin; L97.921 - Non-pressure chronic ulcer of unspecified part of left lower leg limited to breakdown of skin (4) Sepsis Code(s): A41.9 - SEPSIS, UNSPECIFIED ORGANISM Qualifiers: Sepsis type: sepsis due to unspecified organism Sepsis acute organ dysfunction status: unspecified Qualified Code(s): A41.9 - Sepsis, unspecified organism (5) Afib Code(s): I48.91 - UNSPECIFIED ATRIAL FIBRILLATION Qualifiers: Atrial fibrillation type: paroxysmal Qualified Code(s): I48.0 - Paroxysmal atrial fibrillation (6) Altered mental status Code(s): R41.82 - ALTERED MENTAL STATUS, UNSPECIFIED (7) HTN (hypertension) Code(s): I10 - ESSENTIAL (PRIMARY) HYPERTENSION (8) Lactic acidosis Code(s): E87.2 - ACIDOSIS (9) Morbid (severe) obesity due to excess calories Code(s): E66.01 - MORBID (SEVERE) OBESITY DUE TO EXCESS CALORIES Assessment/Plan A/P s/p Acute Respiratory Failure stable Cellulitis/Infected Leg Ulcers Septic Shock resolving Acute Kidney Injury requiring emergent HD now improving Hyperkalemia improved Lactic Acidosis resolved Atrial Fibrillation HTN DM Hyperlipidemia Anemia - antibiotics per ID - wound care - monitor urine output, creatinine - monitor lytes - O2 to keep Spo2 >90% - BiPAP at night and PRN during day - rate control - continue anticoagulation - rehab/PT - DVT/GI prophylaxis DR VANN
[2019-02-23 11:28] VITALS: BMI 45.4
[2019-02-23] MEDS: METOPROLOL TARTRATE 25 MG TABLET (FP) PO SCH (12:02)
--- NOTE | 2019-02-23 12:35 | PN ---
Progress Note, Physician History of Present Illness: Pt seen and examined at bedside. She is awake and alert. She denies shortness of breath. She complains of lower ext edema. - Current Medication List Current Medications: Active Medications Acetaminophen (Ofirmev Injection -) 1,000 mg IVPB Q6H PRN PRN Reason: FEVER Apixaban (Eliquis -) 5 mg PO BID [facility] Last Admin: 02/23/19 11:02 Dose: 5 mg Budesonide/Formoterol Fumarate (Symbicort 80/4.5mcg -) 2 puff IH BID [facility] Last Admin: 02/23/19 11:03 Dose: 2 puff Doxycycline Hyclate (Vibramycin -) 100 mg PO BID@1000,1800 [facility] Last Admin: 02/23/19 11:02 Dose: 100 mg Furosemide (Lasix Oral Solution -) 80 mg PO BID@0600,1400 [facility] Last Admin: 02/23/19 06:43 Dose: 80 mg Gabapentin (Neurontin -) 300 mg PO DAILY [facility] Last Admin: 02/23/19 11:02 Dose: 300 mg Meropenem 500 mg/ Dextrose 100 mls @ 200 mls/hr IVPB Q12H [facility] Last Admin: 02/23/19 11:02 Dose: 200 mls/hr Insulin Aspart (Novolog Vial Sliding Scale -) 1 vial SQ ACHS [facility]; Protocol Last Admin: 02/23/19 12:03 Dose: 4 unit Metoprolol Tartrate (Lopressor -) 25 mg PO DAILY [facility] Last Admin: 02/23/19 12:02 Dose: 25 mg Nystatin (Mycostatin Cream -) 1 applic TP Q6HPO [facility] Last Admin: 02/23/19 11:03 Dose: 1 applic - Objective Vital Signs: Vital Signs Temperature 98 F 02/23/19 11:00 Pulse Rate 105 H 02/23/19 11:00 Respiratory Rate 18 02/23/19 11:00 Blood Pressure 94/63 02/23/19 11:00 O2 Sat by Pulse Oximetry (%) 95 02/22/19 21:00 Constitutional: Yes: Calm Eyes: Yes: Conjunctiva Clear HENT: Yes: Atraumatic Neck: Yes: Supple Cardiovascular: Yes: S1, S2 Respiratory: Yes: CTA Bilaterally Gastrointestinal: Yes: Normal Bowel Sounds, Soft Genitourinary: Yes: WNL Edema: Yes Edema: LLE: 1+, RLE: 1+ Wound/Incision: Yes: Dressing Dry and Intact Neurological: Yes: Oriented Psychiatric: Yes: Oriented Labs: CBC, BMP 02/23/19 06:42 02/22/19 06:00 INR, PTT INR 1.71 (0.83-1.09) H 02/09/19 05:00 Fibrinogen 474.0 mg/dL (238-498) 02/11/19 08:58 Problem List - Problems (1) NOVA (acute kidney injury) Code(s): N17.9 - ACUTE KIDNEY FAILURE, UNSPECIFIED (2) Acute metabolic encephalopathy Code(s): G93.41 - METABOLIC ENCEPHALOPATHY (3) Sepsis Code(s): A41.9 - SEPSIS, UNSPECIFIED ORGANISM Qualifiers: Sepsis type: sepsis due to unspecified organism Sepsis acute organ dysfunction status: unspecified Qualified Code(s): A41.9 - Sepsis, unspecified organism (4) ARF (acute renal failure) Code(s): N17.9 - ACUTE KIDNEY FAILURE, UNSPECIFIED Assessment/Plan Current Medications Generic Name Dose Route Start Last Admin Trade Name Freq PRN Reason Stop Dose Admin Acetaminophen 1,000 mg 02/20/19 18:08 Ofirmev Injection - IVPB Q6H PRN FEVER Apixaban 5 mg 02/18/19 22:00 02/23/19 11:02 Eliquis - PO 5 mg BID [facility] Administration Budesonide/Formoterol Fumarate 2 puff 02/20/19 22:00 02/23/19 11:03 Symbicort 80/4.5mcg - IH 2 puff BID [facility] Administration Doxycycline Hyclate 100 mg 02/18/19 18:00 02/23/19 11:02 Vibramycin - PO 100 mg BID@1000,1800 [facility] Administration Furosemide 80 mg 02/20/19 14:00 02/23/19 06:43 Lasix Oral Solution - PO 80 mg BID@0600,1400 [facility] Administration Gabapentin 300 mg 02/21/19 10:00 02/23/19 11:02 Neurontin - PO 300 mg DAILY [facility] Administration Meropenem 500 mg/ Dextrose 100 mls @ 200 mls/hr 02/20/19 22:00 02/23/19 11:02 IVPB 200 mls/hr Q12H [facility] Administration Insulin Aspart 1 vial 02/20/19 22:00 02/23/19 12:03 Novolog Vial Sliding Scale - SQ 4 unit ACHS [facility] Administration Protocol Metoprolol Tartrate 25 mg 02/20/19 12:00 02/23/19 12:02 Lopressor - PO 25 mg DAILY [facility] Nystatin 1 applic 02/21/19 00:00 02/23/19 11:03 Mycostatin Cream - TP 1 applic Q6HPO [facility] Administration Impression 1. NOVA 2. hyperkalemia 3. obesity 4. DM 5. a-fib 6. HTN 7. chronic lower extremity ulcers 8. gastritis 9. sepsis 10. hyperglycemia 11. metabolic acidosis 12. acute resp failure 13. hypernatremia Plan - monitor renal function - cont lasix, may need to adjust dose once volume status stabilizes - monitor volume status - pt/rehab - wound care - 2 gram sodium diabetic diet - monitor pulse ox
--- NOTE | 2019-02-23 13:32 | PN ---
Progress Note, Physician History of Present Illness: stable no new issues - Current Medication List Current Medications: Active Medications Acetaminophen (Ofirmev Injection -) 1,000 mg IVPB Q6H PRN PRN Reason: FEVER Apixaban (Eliquis -) 5 mg PO BID [facility] Last Admin: 02/23/19 11:02 Dose: 5 mg Budesonide/Formoterol Fumarate (Symbicort 80/4.5mcg -) 2 puff IH BID [facility] Last Admin: 02/23/19 11:03 Dose: 2 puff Doxycycline Hyclate (Vibramycin -) 100 mg PO BID@1000,1800 [facility] Last Admin: 02/23/19 11:02 Dose: 100 mg Furosemide (Lasix Oral Solution -) 80 mg PO BID@0600,1400 [facility] Last Admin: 02/23/19 06:43 Dose: 80 mg Gabapentin (Neurontin -) 300 mg PO DAILY [facility] Last Admin: 02/23/19 11:02 Dose: 300 mg Meropenem 500 mg/ Dextrose 100 mls @ 200 mls/hr IVPB Q12H [facility] Last Admin: 02/23/19 11:02 Dose: 200 mls/hr Insulin Aspart (Novolog Vial Sliding Scale -) 1 vial SQ ACHS [facility]; Protocol Last Admin: 02/23/19 12:03 Dose: 4 unit Metoprolol Tartrate (Lopressor -) 25 mg PO DAILY [facility] Last Admin: 02/23/19 12:02 Dose: 25 mg Nystatin (Mycostatin Cream -) 1 applic TP Q6HPO [facility] Last Admin: 02/23/19 11:03 Dose: 1 applic - Objective Vital Signs: Vital Signs Temperature 98 F 02/23/19 11:00 Pulse Rate 105 H 02/23/19 11:00 Respiratory Rate 18 02/23/19 11:00 Blood Pressure 94/63 02/23/19 11:00 O2 Sat by Pulse Oximetry (%) 95 02/22/19 21:00 Constitutional: Yes: No Distress, Calm Cardiovascular: Yes: Regular Rate and Rhythm Respiratory: Yes: Regular, CTA Bilaterally Gastrointestinal: Yes: Normal Bowel Sounds, Soft Musculoskeletal: Yes: WNL Extremities: Yes: Other Wound/Incision: Yes: Dressing Dry and Intact Neurological: Yes: Alert, Oriented Psychiatric: Yes: Alert, Oriented Labs: CBC, BMP 02/23/19 06:42 02/22/19 06:00 INR, PTT INR 1.71 (0.83-1.09) H 02/09/19 05:00 Fibrinogen 474.0 mg/dL (238-498) 02/11/19 08:58 Assessment/Plan Problem List - Problems (1) Bilateral leg ulcer Code(s): L97.919 - NON-PRS CHRONIC ULC UNSP PRT OF R LOW LEG W UNSP SEVERITY; L97.929 - NON-PRS CHRONIC ULC UNSP PRT OF L LOW LEG W UNSP SEVERITY (2) Sepsis Code(s): A41.9 - SEPSIS, UNSPECIFIED ORGANISM Qualifiers: Sepsis type: sepsis due to unspecified organism Sepsis acute organ dysfunction status: unspecified Qualified Code(s): A41.9 - Sepsis, unspecified organism (3) ARF (acute renal failure) Code(s): N17.9 - ACUTE KIDNEY FAILURE, UNSPECIFIED (4) Afib Code(s): I48.91 - UNSPECIFIED ATRIAL FIBRILLATION Qualifiers: Atrial fibrillation type: paroxysmal Qualified Code(s): I48.0 - Paroxysmal atrial fibrillation (5) Altered mental status Code(s): R41.82 - ALTERED MENTAL STATUS, UNSPECIFIED (6) Cellulitis Code(s): L03.90 - CELLULITIS, UNSPECIFIED Qualifiers: Site of cellulitis: unspecified site Qualified Code(s): L03.90 - Cellulitis , unspecified (7) DM2 (diabetes mellitus, type 2) Code(s): E11.9 - TYPE 2 DIABETES MELLITUS WITHOUT COMPLICATIONS Qualifiers: Diabetes mellitus exterminator helper insulin use: with [facility] use Diabetes mellitus complication detail: with other circulatory complications (8) Encephalopathy due to metabolic factor or toxin Code(s): [id number] - (9) HTN (hypertension) Code(s): I10 - ESSENTIAL (PRIMARY) HYPERTENSION (10) Hyperkalemia Code(s): E87.5 - HYPERKALEMIA (11) Lactic acidosis Code(s): E87.2 - ACIDOSIS (12) Leukocytosis Code(s): D72.829 - ELEVATED WHITE BLOOD CELL COUNT, UNSPECIFIED (13) Metabolic acidosis Code(s): E87.2 - ACIDOSIS (14) Morbid obesity Code(s): E66.01 - MORBID (SEVERE) OBESITY DUE TO EXCESS CALORIES (15) Severe sepsis Code(s): A41.9 - SEPSIS, UNSPECIFIED ORGANISM; R65.20 - SEVERE SEPSIS WITHOUT SEPTIC SHOCK (16) Venous stasis Code(s): I87.8 - OTHER SPECIFIED DISORDERS OF VEINS Assessment/Plan 53 y.o. female with PMH of chronic b/l LE ulcers, cellulitis, T2 DM, HTN, HLD, CKD, Anemia, GERD, obesity, AFIB, Asthma, and bipolar disorder brought to the ER by her brother for lethargy/AMS for the last several days noted to be in ARF , with leukocytosis, and b/l LE ulcers with malodorous drainage/erythema/ warmth. Currently receiving HD and hypotensive on Vasopressors Shock possibly from Sepsis-- on vasopressors AMS/Toxic metabolic encephalopathy/Uremia Infected b/l LE ulcers/cellulitis ARF on CKD - emergent HD started Hyperkalemia Acidosis Uremia Leukocytosis Lactic acidosis AFIB DM Morbid Obesity Asthma Bipolar d.o. HTN HLD continue abx will see how patient does tomorrow wound care rest as per the team
--- NOTE | 2019-02-23 15:25 | PN ---
Progress Note, Physician History of Present Illness: seen and examined today in nad. sitting in chair. no overnight events. no new complaints. - Current Medication List Current Medications: Active Medications Acetaminophen (Ofirmev Injection -) 1,000 mg IVPB Q6H PRN PRN Reason: FEVER Apixaban (Eliquis -) 5 mg PO BID [facility] Last Admin: 02/23/19 11:02 Dose: 5 mg Budesonide/Formoterol Fumarate (Symbicort 80/4.5mcg -) 2 puff IH BID [facility] Last Admin: 02/23/19 11:03 Dose: 2 puff Doxycycline Hyclate (Vibramycin -) 100 mg PO BID@1000,1800 [facility] Last Admin: 02/23/19 11:02 Dose: 100 mg Furosemide (Lasix Oral Solution -) 80 mg PO BID@0600,1400 [facility] Last Admin: 02/23/19 14:45 Dose: Not Given Gabapentin (Neurontin -) 300 mg PO DAILY [facility] Last Admin: 02/23/19 11:02 Dose: 300 mg Meropenem 500 mg/ Dextrose 100 mls @ 200 mls/hr IVPB Q12H [facility] Last Admin: 02/23/19 11:02 Dose: 200 mls/hr Insulin Aspart (Novolog Vial Sliding Scale -) 1 vial SQ ACHS [facility]; Protocol Last Admin: 02/23/19 12:03 Dose: 4 unit Metoprolol Tartrate (Lopressor -) 12.5 mg PO BID [facility] Nystatin (Mycostatin Cream -) 1 applic TP Q6HPO [facility] Last Admin: 02/23/19 11:03 Dose: 1 applic - Objective Vital Signs: Vital Signs Temperature 98.1 F 02/23/19 14:58 Pulse Rate 95 H 02/23/19 14:58 Respiratory Rate 16 02/23/19 14:58 Blood Pressure 86/61 L 02/23/19 14:58 O2 Sat by Pulse Oximetry (%) 96 02/23/19 09:00 Constitutional: Yes: No Distress, Calm Eyes: Yes: Conjunctiva Clear, EOM Intact HENT: Yes: Atraumatic, Normocephalic Neck: Yes: Supple, Trachea Midline Cardiovascular: Yes: Pulse Irregular, S1, S2. No: Regular Rate and Rhythm, Bradycardia, Tachycardia, Bruit, JVD, Gallop, Murmur, Rub, S3, S4, Varicosities Respiratory: Yes: Regular. No: Rales, Wheezes Neurological: Yes: Alert, Oriented Psychiatric: Yes: Alert, Oriented Labs: CBC, BMP 02/23/19 06:42 02/22/19 06:00 INR, PTT INR 1.71 (0.83-1.09) H 02/09/19 05:00 Fibrinogen 474.0 mg/dL (238-498) 02/11/19 08:58 - ....Imaging Chest X-ray: Report Reviewed, Image Reviewed EKG: Report Reviewed, Image Reviewed Other: Report Reviewed, Image Reviewed (tele-AFib, HR mildly elevated) Assessment/Plan 53 year old female with a PMH of chronic AFIB on Eliquis, HTN, DM HLD, CKD, and chronic bilateral leg ulcers. She initially came to the hospital for altered mental status. . She was noted to be in acute renal failure with a BUN/Cre of 179/11 and septic shock 2/2 infected lower extremity wound ulcers. Treated in the ICU intubated, sedated, and on vasopressors. She received emergent hemodialysis in the ICU. Now on tele, extubated, BUN/creat improving. Echocardiogram 10/2018 normal EF no valvular disease PASP moderately elevated. Afib-HR mildly elevated with low normal BP -issue with rate control as pt's BP does not tolerate uptitration of metoprolol -has been on Lopressor 25mg daily. -Change Lopressor to 12.5mg bid for more even coverage throughout the day -reduce diuretics if possible -if BP does not tolerate metoprolol and if HR above goal can start Digoxin with monitoring given recent JACQUELYN on CKD -cont tele monitoring
[2019-02-23] MEDS ORDERED: METOPROLOL TARTRATE 25 MG TABLET (FP) PO SCH (22:00)
[2019-02-24] MEDS: NYSTATIN 100,000 UNIT/GM TOPICAL CREAM 15 GM TUBE TP SCH ×4 (00:49→17:33)
[2019-02-24] MEDS: FUROSEMIDE 40 MG/5 ML UNIT-DOSE CUP PO SCH ×2 (06:10→13:49)
[2019-02-24] MEDS: INSULIN SLIDING SCALE (NOVOLOG) 1 VIAL SQ SCH ×4 (06:18→21:45)
[2019-02-24] MEDS ORDERED: PT OWN MED DRAWER 7, Y5N ONE ×6 (06:55→21:39)
[2019-02-24] MEDS ORDERED: INSULIN (LEVEMIR) 100 UNITS/ML UNITS SQ ONE (06:56)
[2019-02-24] MEDS ORDERED: INSULIN SLIDING SCALE (NOVOLOG) 1 VIAL SQ ONE (06:56)
[2019-02-24 07:04] LABS: HEMATOCRIT 31.1 % (32.4-45.2); HEMOGLOBIN 10.2 GM/dL (10.7-15.3); MCHC 32.9 g/dl (32.0-36.0); MEAN CELL VOLUME 88.3 fl (80-96); MEAN PLT VOLUME 9.8 fl (7.5-11.1); PLATELET COUNT 503 K/MM3 (134-434); RBC 3.53 M/mm3 (3.60-5.2); RDW 16.9 % (11.6-15.6); WHITE BLOOD COUNT 7.4 K/mm3 (4.0-10.0)
[2019-02-24 07:45] LABS: ALBUMIN 2.6 g/dl (3.4-5.0); BILIRUBIN,TOTAL 0.6 mg/dL (0.2-1); BLOOD UREA NITROGEN 44.6 mg/dL (7-18); CALCIUM 9.8 mg/dL (8.5-10.1); CREATININE 1.8 mg/dL (0.55-1.3); MAGNESIUM 1.6 mg/dL (1.8-2.4); POTASSIUM 3.8 mmol/L (3.5-5.1); TOT PROT 7.1 g/dl (6.4-8.2)
--- NOTE | 2019-02-24 09:14 | PN ---
Progress Note, Physician History of Present Illness: 53 year old female with a PMH of chronic AFIB on Eliquis, HTN, DM HLD, CKD, and chronic bilateral leg ulcers. She initially came to the hospital for altered mental status. . She was noted to be in acute renal failure with a BUN/Cre of 179/11 and septic shock 2/2 infected lower extremity wound ulcers. Treated in the ICU intubated, sedated, and on vasopressors. She received emergent hemodialysis in the ICU. Now on tele, extubated, BUN/creat improving. Echocardiogram 10/2018 normal EF no valvular disease PASP moderately elevated. - Current Medication List Current Medications: Active Medications Acetaminophen (Ofirmev Injection -) 1,000 mg IVPB Q6H PRN PRN Reason: FEVER Apixaban (Eliquis -) 5 mg PO BID [facility] Last Admin: 02/23/19 22:26 Dose: 5 mg Budesonide/Formoterol Fumarate (Symbicort 80/4.5mcg -) 2 puff IH BID [facility] Last Admin: 02/23/19 22:28 Dose: 2 puff Doxycycline Hyclate (Vibramycin -) 100 mg PO BID@1000,1800 [facility] Last Admin: 02/23/19 17:18 Dose: 100 mg Furosemide (Lasix Oral Solution -) 80 mg PO BID@0600,1400 [facility] Last Admin: 02/24/19 06:10 Dose: 80 mg Gabapentin (Neurontin -) 300 mg PO DAILY [facility] Last Admin: 02/23/19 11:02 Dose: 300 mg Meropenem 500 mg/ Dextrose 100 mls @ 200 mls/hr IVPB Q12H [facility] Last Admin: 02/23/19 22:25 Dose: 200 mls/hr Insulin Aspart (Novolog Vial Sliding Scale -) 1 vial SQ ACHS [facility]; Protocol Last Admin: 02/24/19 06:18 Dose: 4 unit Metoprolol Tartrate (Lopressor -) 12.5 mg PO BID [facility] Last Admin: 02/23/19 22:26 Dose: 12.5 mg Nystatin (Mycostatin Cream -) 1 applic TP Q6HPO [facility] Last Admin: 02/24/19 06:10 Dose: 1 applic - Objective Vital Signs: Vital Signs Temperature 98.1 F 02/24/19 06:00 Pulse Rate 98 H 02/24/19 06:00 Respiratory Rate 18 02/24/19 06:00 Blood Pressure 93/63 02/24/19 06:00 O2 Sat by Pulse Oximetry (%) 96 02/23/19 22:00 Constitutional: Yes: No Distress, Calm Eyes: Yes: EOM Intact HENT: Yes: Normocephalic Neck: Yes: Trachea Midline Cardiovascular: Yes: Tachycardia, Pulse Irregular Respiratory: Yes: Poor Air Entry Gastrointestinal: Yes: Normal Bowel Sounds, Soft Extremities: Yes: WNL Labs: CBC, BMP 02/24/19 06:15 02/24/19 06:15 INR, PTT INR 1.71 (0.83-1.09) H 02/09/19 05:00 Fibrinogen 474.0 mg/dL (238-498) 02/11/19 08:58 Assessment/Plan 53 year old female with a PMH of chronic AFIB on Eliquis, HTN, DM HLD, CKD, and chronic bilateral leg ulcers. She initially came to the hospital for altered mental status. . She was noted to be in acute renal failure with a BUN/Cre of 179/11 and septic shock 2/2 infected lower extremity wound ulcers. Treated in the ICU intubated, sedated, and on vasopressors. She received emergent hemodialysis in the ICU. Now on tele, extubated, BUN/creat improving. Echocardiogram 10/2018 normal EF no valvular disease PASP moderately elevated. Afib-HR mildly elevated with low normal BP -issue with rate control as pt's BP does limit up titration of metoprolol -has been on Lopressor 25mg daily. -Change Lopressor to 25mg bid for more even coverage throughout the day -reduce diuretics if possible -if BP does not tolerate metoprolol and if HR above goal can start Digoxin with monitoring given recent JACQUELYN on CKD -cont tele monitoring
[2019-02-24] MEDS ORDERED: METOPROLOL TARTRATE 25 MG TABLET (FP) PO SCH (10:00)
[2019-02-24] MEDS: APIXABAN 5 MG TABLET PO SCH ×2 (10:27→21:44)
[2019-02-24] MEDS: DOXYCYCLINE HYCLATE 100 MG CAPSULE PO SCH ×2 (10:27→17:28)
[2019-02-24] MEDS: GABAPENTIN 300 MG CAPSULE (FP) PO SCH (10:27)
[2019-02-24] MEDS: BUDESONIDE/FORMETEROL FUMARATE 80/4.5 mcg INHALER IH SCH ×2 (10:27→21:45)
[2019-02-24] MEDS: MEROPENEM 500 MG in DEXTROSE 5%-WATER 100 ML IVPB SCH ×2 (10:39→21:45)
--- NOTE | 2019-02-24 10:55 | PN ---
Progress Note, Physician Chief Complaint: B/L LE chronic Venous stasis ulcerations Chronic Afib on AC HTN Uncontrolled T2DM Bipolar disorder CKD (non-compliant with medications) History of Present Illness: hypotensive episode this AM, resolved after pt was placed in trendelenburg - Current Medication List Current Medications: Active Medications Acetaminophen (Ofirmev Injection -) 1,000 mg IVPB Q6H PRN PRN Reason: FEVER Apixaban (Eliquis -) 5 mg PO BID [facility] Last Admin: 02/24/19 10:27 Dose: 5 mg Budesonide/Formoterol Fumarate (Symbicort 80/4.5mcg -) 2 puff IH BID [facility] Last Admin: 02/24/19 10:27 Dose: 2 puff Doxycycline Hyclate (Vibramycin -) 100 mg PO BID@1000,1800 [facility] Last Admin: 02/24/19 10:27 Dose: 100 mg Furosemide (Lasix Oral Solution -) 80 mg PO BID@0600,1400 [facility] Last Admin: 02/24/19 06:10 Dose: 80 mg Gabapentin (Neurontin -) 300 mg PO DAILY [facility] Last Admin: 02/24/19 10:27 Dose: 300 mg Meropenem 500 mg/ Dextrose 100 mls @ 200 mls/hr IVPB Q12H [facility] Last Admin: 02/24/19 10:39 Dose: 200 mls/hr Insulin Aspart (Novolog Vial Sliding Scale -) 1 vial SQ ACHS [facility]; Protocol Last Admin: 02/24/19 06:18 Dose: 4 unit Metoprolol Tartrate (Lopressor -) 25 mg PO BID [facility] Last Admin: 02/24/19 10:27 Dose: 25 mg Nystatin (Mycostatin Cream -) 1 applic TP Q6HPO [facility] Last Admin: 02/24/19 06:10 Dose: 1 applic - Objective Vital Signs: Vital Signs Temperature 98.3 F 02/24/19 10:00 Pulse Rate 109 H 02/24/19 10:00 Respiratory Rate 20 02/24/19 10:00 Blood Pressure 107/54 L 02/24/19 10:00 O2 Sat by Pulse Oximetry (%) 96 02/23/19 22:00 Constitutional: Yes: Well Nourished, No Distress, Calm, Obese Cardiovascular: Yes: Regular Rate and Rhythm Respiratory: Yes: Regular Gastrointestinal: Yes: Normal Bowel Sounds, Soft, Abdomen, Obese Genitourinary: Yes: Incontinence Musculoskeletal: Yes: Muscle Weakness Extremities: Yes: WNL Edema: Yes (BLLE non pitting edema) Peripheral Pulses WNL: Yes Neurological: Yes: Alert, Oriented Psychiatric: Yes: Alert, Oriented Labs: CBC, BMP 02/24/19 06:15 02/24/19 06:15 INR, PTT INR 1.71 (0.83-1.09) H 02/09/19 05:00 Fibrinogen 474.0 mg/dL (238-498) 02/11/19 08:58 Problem List - Problems (1) Acute metabolic encephalopathy Assessment/Plan: -2/2 to sepsis -ID on board -IV abx -Cultures: Microbiology 02/08/19 01:45 Blood - Peripheral Venous Blood Culture - Final NO GROWTH AFTER 5 DAYS INCUBATION 02/08/19 01:45 Blood - Peripheral Venous Blood Culture - Final NO GROWTH AFTER 5 DAYS INCUBATION 02/08/19 09:15 Leg - Right Lower Gram Stain - Final 02/08/19 09:15 Leg - Right Lower Wound Culture - Final Klebsiella Pneumoniae Morganella Morganii Pseudomonas Aeruginosa Enterococcus Faecalis Enterococcus Avium Prevotella Oralis 02/08/19 12:20 Leg - Left Lower Gram Stain - Final 02/08/19 12:20 Leg - Left Lower Wound Culture - Final Serratia Marcescens Enterococcus Faecalis Mr S Aureus 02/08/19 16:00 Urine - Urine Johnson Urine Culture - Final NO GROWTH OBTAINED 02/08/19 09:15 Urine - Urine Johnson Urine Culture - Final NO GROWTH OBTAINED -Afebrile -leukocytosis -Lactic acidosis resolved Problems reviewed: Yes Code(s): G93.41 - METABOLIC ENCEPHALOPATHY (2) NOVA (acute kidney injury) Problems reviewed: Yes Code(s): N17.9 - ACUTE KIDNEY FAILURE, UNSPECIFIED (3) Bilateral leg ulcer Problems reviewed: Yes Code(s): L97.919 - NON-PRS CHRONIC ULC UNSP PRT OF R LOW LEG W UNSP SEVERITY; L97.929 - NON-PRS CHRONIC ULC UNSP PRT OF L LOW LEG W UNSP SEVERITY Qualifiers: Non-pressure ulcer stage: limited to breakdown of skin Qualified Code(s): L97.911 - Non-pressure chronic ulcer of unspecified part of right lower leg limited to breakdown of skin; L97.921 - Non-pressure chronic ulcer of unspecified part of left lower leg limited to breakdown of skin (4) Sepsis Assessment/Plan: -2/2 to sepsis -ID on board -IV abx -Cultures: Microbiology 02/08/19 01:45 Blood - Peripheral Venous Blood Culture - Final NO GROWTH AFTER 5 DAYS INCUBATION 02/08/19 01:45 Blood - Peripheral Venous Blood Culture - Final NO GROWTH AFTER 5 DAYS INCUBATION 02/08/19 09:15 Leg - Right Lower Gram Stain - Final 02/08/19 09:15 Leg - Right Lower Wound Culture - Final Klebsiella Pneumoniae Morganella Morganii Pseudomonas Aeruginosa Enterococcus Faecalis Enterococcus Avium Prevotella Oralis 02/08/19 12:20 Leg - Left Lower Gram Stain - Final 02/08/19 12:20 Leg - Left Lower Wound Culture - Final Serratia Marcescens Enterococcus Faecalis Mr S Aureus 02/08/19 16:00 Urine - Urine Johnson Urine Culture - Final NO GROWTH OBTAINED 02/08/19 09:15 Urine - Urine Johnson Urine Culture - Final NO GROWTH OBTAINED -Afebrile -leukocytosis -Lactic acidosis resolved -Cardiology consult Problems reviewed: Yes Code(s): A41.9 - SEPSIS, UNSPECIFIED ORGANISM Qualifiers: Sepsis type: sepsis due to unspecified organism Sepsis acute organ dysfunction status: unspecified Qualified Code(s): A41.9 - Sepsis, unspecified organism (5) ARF (acute renal failure) Assessment/Plan: -much improved -nephrology on board Code(s): N17.9 - ACUTE KIDNEY FAILURE, UNSPECIFIED (6) Altered mental status Assessment/Plan: -2/2 to sepsis -Diet resumed Problems reviewed: Yes Code(s): R41.82 - ALTERED MENTAL STATUS, UNSPECIFIED (7) Uncontrolled diabetes mellitus Assessment/Plan: -a1c at 9.3 -BGM ACHS -ISS -endocrine consult -Diabetic low sodium diet Problems reviewed: Yes Code(s): E11.65 - TYPE 2 DIABETES MELLITUS WITH HYPERGLYCEMIA (8) Lactic acidosis Problems reviewed: Yes Code(s): E87.2 - ACIDOSIS (9) Hypokalemia Assessment/Plan: -Resolved Problems reviewed: Yes Code(s): E87.6 - HYPOKALEMIA (10) Anemia Assessment/Plan: -JONAS -H/H stable -Repeat Guaiac negative -monitor trend -Hematology consult appreciated -B12+ folate normal Problems reviewed: Yes Code(s): D64.9 - ANEMIA, UNSPECIFIED (11) Afib Assessment/Plan: -Chronic -On Lopressor---> decrease to 12.5 mg po BID -Cardiology on board -May need to add second agent if rate consistently >110bpm -Continue Eliquis Problems reviewed: Yes Code(s): I48.91 - UNSPECIFIED ATRIAL FIBRILLATION Qualifiers: Atrial fibrillation type: paroxysmal Qualified Code(s): I48.0 - Paroxysmal atrial fibrillation Assessment/Plan See problem list
--- NOTE | 2019-02-24 12:38 | PN ---
Progress Note, Physician History of Present Illness: patient hypotensive suddenly slightly lethargic - Current Medication List Current Medications: Active Medications Acetaminophen (Ofirmev Injection -) 1,000 mg IVPB Q6H PRN PRN Reason: FEVER Apixaban (Eliquis -) 5 mg PO BID [facility] Last Admin: 02/24/19 10:27 Dose: 5 mg Budesonide/Formoterol Fumarate (Symbicort 80/4.5mcg -) 2 puff IH BID [facility] Last Admin: 02/24/19 10:27 Dose: 2 puff Doxycycline Hyclate (Vibramycin -) 100 mg PO BID@1000,1800 [facility] Last Admin: 02/24/19 10:27 Dose: 100 mg Furosemide (Lasix Oral Solution -) 80 mg PO BID@0600,1400 [facility] Last Admin: 02/24/19 06:10 Dose: 80 mg Gabapentin (Neurontin -) 300 mg PO DAILY [facility] Last Admin: 02/24/19 10:27 Dose: 300 mg Meropenem 500 mg/ Dextrose 100 mls @ 200 mls/hr IVPB Q12H [facility] Last Admin: 02/24/19 10:39 Dose: 200 mls/hr Insulin Aspart (Novolog Vial Sliding Scale -) 1 vial SQ ACHS [facility]; Protocol Last Admin: 02/24/19 06:18 Dose: 4 unit Metoprolol Tartrate (Lopressor -) 25 mg PO BID [facility] Last Admin: 02/24/19 10:27 Dose: 25 mg Nystatin (Mycostatin Cream -) 1 applic TP Q6HPO [facility] Last Admin: 02/24/19 06:10 Dose: 1 applic - Objective Vital Signs: Vital Signs Temperature 98.3 F 02/24/19 10:00 Pulse Rate 122 H 02/24/19 12:08 Respiratory Rate 24 H 02/24/19 12:08 Blood Pressure 115/65 02/24/19 12:08 O2 Sat by Pulse Oximetry (%) 99 02/24/19 09:00 Constitutional: Yes: Other Cardiovascular: Yes: Regular Rate and Rhythm Respiratory: Yes: Regular, CTA Bilaterally Gastrointestinal: Yes: Normal Bowel Sounds, Soft Musculoskeletal: Yes: WNL Extremities: Yes: Other Wound/Incision: Yes: Dressing Dry and Intact Neurological: Yes: Lethargy Psychiatric: Yes: Other Labs: CBC, BMP 02/24/19 06:15 02/24/19 06:15 INR, PTT INR 1.71 (0.83-1.09) H 02/09/19 05:00 Fibrinogen 474.0 mg/dL (238-498) 02/11/19 08:58 Assessment/Plan Problem List - Problems (1) Bilateral leg ulcer Code(s): L97.919 - NON-PRS CHRONIC ULC UNSP PRT OF R LOW LEG W UNSP SEVERITY; L97.929 - NON-PRS CHRONIC ULC UNSP PRT OF L LOW LEG W UNSP SEVERITY (2) Sepsis Code(s): A41.9 - SEPSIS, UNSPECIFIED ORGANISM Qualifiers: Sepsis type: sepsis due to unspecified organism Sepsis acute organ dysfunction status: unspecified Qualified Code(s): A41.9 - Sepsis, unspecified organism (3) ARF (acute renal failure) Code(s): N17.9 - ACUTE KIDNEY FAILURE, UNSPECIFIED (4) Afib Code(s): I48.91 - UNSPECIFIED ATRIAL FIBRILLATION Qualifiers: Atrial fibrillation type: paroxysmal Qualified Code(s): I48.0 - Paroxysmal atrial fibrillation (5) Altered mental status Code(s): R41.82 - ALTERED MENTAL STATUS, UNSPECIFIED (6) Cellulitis Code(s): L03.90 - CELLULITIS, UNSPECIFIED Qualifiers: Site of cellulitis: unspecified site Qualified Code(s): L03.90 - Cellulitis , unspecified (7) DM2 (diabetes mellitus, type 2) Code(s): E11.9 - TYPE 2 DIABETES MELLITUS WITHOUT COMPLICATIONS Qualifiers: Diabetes mellitus detention insulin use: with detention use Diabetes mellitus complication detail: with other circulatory complications (8) Encephalopathy due to metabolic factor or toxin Code(s): [id number] - (9) HTN (hypertension) Code(s): I10 - ESSENTIAL (PRIMARY) HYPERTENSION (10) Hyperkalemia Code(s): E87.5 - HYPERKALEMIA (11) Lactic acidosis Code(s): E87.2 - ACIDOSIS (12) Leukocytosis Code(s): D72.829 - ELEVATED WHITE BLOOD CELL COUNT, UNSPECIFIED (13) Metabolic acidosis Code(s): E87.2 - ACIDOSIS (14) Morbid obesity Code(s): E66.01 - MORBID (SEVERE) OBESITY DUE TO EXCESS CALORIES (15) Severe sepsis Code(s): A41.9 - SEPSIS, UNSPECIFIED ORGANISM; R65.20 - SEVERE SEPSIS WITHOUT SEPTIC SHOCK (16) Venous stasis Code(s): I87.8 - OTHER SPECIFIED DISORDERS OF VEINS Assessment/Plan 53 y.o. female with PMH of chronic b/l LE ulcers, cellulitis, T2 DM, HTN, HLD, CKD, Anemia, GERD, obesity, AFIB, Asthma, and bipolar disorder brought to the ER by her brother for lethargy/AMS for the last several days noted to be in ARF , with leukocytosis, and b/l LE ulcers with malodorous drainage/erythema/ warmth. Currently receiving HD and hypotensive on Vasopressors Shock possibly from Sepsis-- on vasopressors AMS/Toxic metabolic encephalopathy/Uremia Infected b/l LE ulcers/cellulitis ARF on CKD - emergent HD started Hyperkalemia Acidosis Uremia Leukocytosis Lactic acidosis AFIB DM Morbid Obesity Asthma Bipolar d.o. HTN HLD hypotension continue abx monitor wound care rest as per the team
[2019-02-24] MEDS ORDERED: SODIUM CHLORIDE 500 ML IV STA (13:49)
--- NOTE | 2019-02-24 13:49 | PN ---
Progress Note, Physician History of Present Illness: Pt seen and examined at bedside. SHe is awake and alert. - Current Medication List Current Medications: Active Medications Acetaminophen (Ofirmev Injection -) 1,000 mg IVPB Q6H PRN PRN Reason: FEVER Apixaban (Eliquis -) 5 mg PO BID [facility] Last Admin: 02/24/19 10:27 Dose: 5 mg Budesonide/Formoterol Fumarate (Symbicort 80/4.5mcg -) 2 puff IH BID [facility] Last Admin: 02/24/19 10:27 Dose: 2 puff Doxycycline Hyclate (Vibramycin -) 100 mg PO BID@1000,1800 [facility] Last Admin: 02/24/19 10:27 Dose: 100 mg Furosemide (Lasix Oral Solution -) 80 mg PO BID@0600,1400 [facility] Last Admin: 02/24/19 06:10 Dose: 80 mg Gabapentin (Neurontin -) 300 mg PO DAILY [facility] Last Admin: 02/24/19 10:27 Dose: 300 mg Meropenem 500 mg/ Dextrose 100 mls @ 200 mls/hr IVPB Q12H [facility] Last Admin: 02/24/19 10:39 Dose: 200 mls/hr Insulin Aspart (Novolog Vial Sliding Scale -) 1 vial SQ ACHS [facility]; Protocol Last Admin: 02/24/19 06:18 Dose: 4 unit Metoprolol Tartrate (Lopressor -) 25 mg PO BID [facility] Last Admin: 02/24/19 10:27 Dose: 25 mg Nystatin (Mycostatin Cream -) 1 applic TP Q6HPO [facility] Last Admin: 02/24/19 06:10 Dose: 1 applic - Objective Vital Signs: Vital Signs Temperature 98.3 F 02/24/19 10:00 Pulse Rate 122 H 02/24/19 12:08 Respiratory Rate 24 H 02/24/19 12:08 Blood Pressure 115/65 02/24/19 12:08 O2 Sat by Pulse Oximetry (%) 99 02/24/19 09:00 Constitutional: Yes: Calm Eyes: Yes: Conjunctiva Clear HENT: Yes: Atraumatic Neck: Yes: Supple Cardiovascular: Yes: S1, S2 Respiratory: Yes: CTA Bilaterally Gastrointestinal: Yes: Soft, Abdomen, Obese Genitourinary: Yes: WNL Musculoskeletal: Yes: Muscle Weakness Edema: Yes Edema: LLE: Trace, RLE: Trace Wound/Incision: Yes: Dressing Dry and Intact Neurological: Yes: Oriented Psychiatric: Yes: Oriented Labs: CBC, BMP 02/24/19 06:15 02/24/19 06:15 INR, PTT INR 1.71 (0.83-1.09) H 02/09/19 05:00 Fibrinogen 474.0 mg/dL (238-498) 02/11/19 08:58 Problem List - Problems (1) NOVA (acute kidney injury) Code(s): N17.9 - ACUTE KIDNEY FAILURE, UNSPECIFIED (2) Acute metabolic encephalopathy Code(s): G93.41 - METABOLIC ENCEPHALOPATHY (3) Sepsis Code(s): A41.9 - SEPSIS, UNSPECIFIED ORGANISM Qualifiers: Sepsis type: sepsis due to unspecified organism Sepsis acute organ dysfunction status: unspecified Qualified Code(s): A41.9 - Sepsis, unspecified organism (4) ARF (acute renal failure) Code(s): N17.9 - ACUTE KIDNEY FAILURE, UNSPECIFIED Assessment/Plan Current Medications Generic Name Dose Route Start Last Admin Trade Name Freq PRN Reason Stop Dose Admin Acetaminophen 1,000 mg 02/20/19 18:08 Ofirmev Injection - IVPB Q6H PRN FEVER Apixaban 5 mg 02/18/19 22:00 02/24/19 10:27 Eliquis - PO 5 mg BID [facility] Administration Budesonide/Formoterol Fumarate 2 puff 02/20/19 22:00 02/24/19 10:27 Symbicort 80/4.5mcg - IH 2 puff BID [facility] Administration Doxycycline Hyclate 100 mg 02/18/19 18:00 02/24/19 10:27 Vibramycin - PO 100 mg BID@1000,1800 [facility] Administration Furosemide 80 mg 02/20/19 14:00 02/24/19 06:10 Lasix Oral Solution - PO 80 mg BID@0600,1400 [facility] Administration Gabapentin 300 mg 02/21/19 10:00 02/24/19 10:27 Neurontin - PO 300 mg DAILY [facility] Administration Meropenem 500 mg/ Dextrose 100 mls @ 200 mls/hr 02/20/19 22:00 02/24/19 10:39 IVPB 200 mls/hr Q12H [facility] Administration Insulin Aspart 1 vial 02/20/19 22:00 02/24/19 06:18 Novolog Vial Sliding Scale - SQ 4 unit ACHS [facility] Administration Protocol Metoprolol Tartrate 25 mg 02/24/19 10:00 02/24/19 10:27 Lopressor - PO 25 mg BID [facility] Administration Nystatin 1 applic 02/21/19 00:00 02/24/19 06:10 Mycostatin Cream - TP 1 applic Q6HPO [facility] Administration Impression 1. NOVA 2. hyperkalemia 3. obesity 4. DM 5. a-fib 6. HTN 7. chronic lower extremity ulcers 8. gastritis 9. sepsis 10. hyperglycemia 11. metabolic acidosis 12. acute resp failure 13. hypernatremia Plan - renal function worsening - hold lasix - will give a saline bolus - cxr in am - monitor volume status - pt/rehab - wound care - 2 gram sodium diabetic diet - monitor pulse ox
[2019-02-24] MEDS: MAGNESIUM OXIDE 400 MG TABLET (FP) PO SCH ×2 (17:28→21:44)
[2019-02-24] MEDS: METOPROLOL TARTRATE 25 MG TABLET (FP) PO SCH (21:44)
[2019-02-25] MEDS: NYSTATIN 100,000 UNIT/GM TOPICAL CREAM 15 GM TUBE TP SCH ×4 (00:29→17:15)
[2019-02-25] MEDS: INSULIN SLIDING SCALE (NOVOLOG) 1 VIAL SQ SCH ×3 (06:51→17:11)
[2019-02-25 08:16] LABS: ALBUMIN 2.6 g/dl (3.4-5.0); BILIRUBIN,TOTAL 0.7 mg/dL (0.2-1); BLOOD UREA NITROGEN 53.8 mg/dL (7-18); CALCIUM 9.3 mg/dL (8.5-10.1); CREATININE 1.5 mg/dL (0.55-1.3); POTASSIUM 3.6 mmol/L (3.5-5.1)
[2019-02-25] MEDS ORDERED: PT OWN MED DRAWER 7, Y5N ONE ×2 (10:14→11:12)
[2019-02-25] MEDS: MEROPENEM 500 MG in DEXTROSE 5%-WATER 100 ML IVPB SCH (10:47)
[2019-02-25] MEDS: METOPROLOL TARTRATE 25 MG TABLET (FP) PO SCH (10:48)
[2019-02-25] MEDS: BUDESONIDE/FORMETEROL FUMARATE 80/4.5 mcg INHALER IH SCH (10:49)
[2019-02-25] MEDS: GABAPENTIN 300 MG CAPSULE (FP) PO SCH (10:49)
[2019-02-25] MEDS: APIXABAN 5 MG TABLET PO SCH (10:49)
[2019-02-25] MEDS: MAGNESIUM OXIDE 400 MG TABLET (FP) PO SCH (10:49)
[2019-02-25] MEDS: DOXYCYCLINE HYCLATE 100 MG CAPSULE PO SCH ×2 (10:49→17:11)
--- NOTE | 2019-02-25 11:02 | PN ---
Progress Note, Physician Chief Complaint: B/L LE chronic Venous stasis ulcerations Chronic Afib on AC HTN Uncontrolled T2DM Bipolar disorder CKD (non-compliant with medications) History of Present Illness: hypotensive episode yesterday, resolved after pt was placed in trendelenburg Lopressor dosage decreased to 12.5 mg po BID, tolerating well, although SBP still mildly low Pt with asymptomatic tachycardia - Current Medication List Current Medications: Active Medications Acetaminophen (Ofirmev Injection -) 1,000 mg IVPB Q6H PRN PRN Reason: FEVER Apixaban (Eliquis -) 5 mg PO BID [facility] Last Admin: 02/25/19 10:49 Dose: 5 mg Budesonide/Formoterol Fumarate (Symbicort 80/4.5mcg -) 2 puff IH BID [facility] Last Admin: 02/25/19 10:49 Dose: 2 puff Doxycycline Hyclate (Vibramycin -) 100 mg PO BID@1000,1800 [facility] Last Admin: 02/25/19 10:49 Dose: 100 mg Gabapentin (Neurontin -) 300 mg PO DAILY [facility] Last Admin: 02/25/19 10:49 Dose: 300 mg Meropenem 500 mg/ Dextrose 100 mls @ 200 mls/hr IVPB Q12H [facility] Last Admin: 02/25/19 10:47 Dose: 200 mls/hr Insulin Aspart (Novolog Vial Sliding Scale -) 1 vial SQ ACHS [facility]; Protocol Last Admin: 02/25/19 06:51 Dose: 2 unit Magnesium Oxide (Mag-Ox -) 400 mg PO BID [facility] Last Admin: 02/25/19 10:49 Dose: 400 mg Metoprolol Tartrate (Lopressor -) 12.5 mg PO BID [facility] Last Admin: 02/25/19 10:48 Dose: 12.5 mg Nystatin (Mycostatin Cream -) 1 applic TP Q6HPO [facility] Last Admin: 02/25/19 06:02 Dose: 1 applic - Objective Vital Signs: Vital Signs Temperature 98.5 F 02/25/19 09:06 Pulse Rate 108 H 02/25/19 09:06 Respiratory Rate 19 02/25/19 09:06 Blood Pressure 80/45 L 02/25/19 09:06 O2 Sat by Pulse Oximetry (%) 92 L 02/24/19 21:00 Constitutional: Yes: Well Nourished, No Distress, Calm Cardiovascular: Yes: Regular Rate and Rhythm Respiratory: Yes: Regular Gastrointestinal: Yes: Normal Bowel Sounds, Soft, Abdomen, Obese Musculoskeletal: Yes: Muscle Weakness Extremities: Yes: WNL Edema: Yes (BLLE non pitting edema) Peripheral Pulses WNL: Yes Neurological: Yes: Alert, Oriented Psychiatric: Yes: Alert, Oriented Labs: CBC, BMP 02/24/19 06:15 02/25/19 06:22 INR, PTT INR 1.71 (0.83-1.09) H 02/09/19 05:00 Fibrinogen 474.0 mg/dL (238-498) 02/11/19 08:58 Problem List - Problems (1) Acute metabolic encephalopathy Assessment/Plan: -2/2 to sepsis -ID on board -PO abx upon discharge -Cultures: Microbiology 02/08/19 01:45 Blood - Peripheral Venous Blood Culture - Final NO GROWTH AFTER 5 DAYS INCUBATION 02/08/19 01:45 Blood - Peripheral Venous Blood Culture - Final NO GROWTH AFTER 5 DAYS INCUBATION 02/08/19 09:15 Leg - Right Lower Gram Stain - Final 02/08/19 09:15 Leg - Right Lower Wound Culture - Final Klebsiella Pneumoniae Morganella Morganii Pseudomonas Aeruginosa Enterococcus Faecalis Enterococcus Avium Prevotella Oralis 02/08/19 12:20 Leg - Left Lower Gram Stain - Final 02/08/19 12:20 Leg - Left Lower Wound Culture - Final Serratia Marcescens Enterococcus Faecalis Mr S Aureus 02/08/19 16:00 Urine - Urine Johnson Urine Culture - Final NO GROWTH OBTAINED 02/08/19 09:15 Urine - Urine Johnson Urine Culture - Final NO GROWTH OBTAINED -Afebrile -leukocytosis -Lactic acidosis resolved Problems reviewed: Yes Code(s): G93.41 - METABOLIC ENCEPHALOPATHY (2) NOVA (acute kidney injury) Problems reviewed: Yes Code(s): N17.9 - ACUTE KIDNEY FAILURE, UNSPECIFIED (3) Bilateral leg ulcer Problems reviewed: Yes Code(s): L97.919 - NON-PRS CHRONIC ULC UNSP PRT OF R LOW LEG W UNSP SEVERITY; L97.929 - NON-PRS CHRONIC ULC UNSP PRT OF L LOW LEG W UNSP SEVERITY Qualifiers: Non-pressure ulcer stage: limited to breakdown of skin Qualified Code(s): L97.911 - Non-pressure chronic ulcer of unspecified part of right lower leg limited to breakdown of skin; L97.921 - Non-pressure chronic ulcer of unspecified part of left lower leg limited to breakdown of skin (4) Sepsis Assessment/Plan: -2/2 to sepsis -ID on board -IV abx---> changed to PO -Cultures: Microbiology 02/08/19 01:45 Blood - Peripheral Venous Blood Culture - Final NO GROWTH AFTER 5 DAYS INCUBATION 02/08/19 01:45 Blood - Peripheral Venous Blood Culture - Final NO GROWTH AFTER 5 DAYS INCUBATION 02/08/19 09:15 Leg - Right Lower Gram Stain - Final 02/08/19 09:15 Leg - Right Lower Wound Culture - Final Klebsiella Pneumoniae Morganella Morganii Pseudomonas Aeruginosa Enterococcus Faecalis Enterococcus Avium Prevotella Oralis 02/08/19 12:20 Leg - Left Lower Gram Stain - Final 02/08/19 12:20 Leg - Left Lower Wound Culture - Final Serratia Marcescens Enterococcus Faecalis Mr S Aureus 02/08/19 16:00 Urine - Urine Johnson Urine Culture - Final NO GROWTH OBTAINED 02/08/19 09:15 Urine - Urine Johnson Urine Culture - Final NO GROWTH OBTAINED -Afebrile -leukocytosis -Lactic acidosis resolved -Cardiology consult Problems reviewed: Yes Code(s): A41.9 - SEPSIS, UNSPECIFIED ORGANISM Qualifiers: Sepsis type: sepsis due to unspecified organism Sepsis acute organ dysfunction status: unspecified Qualified Code(s): A41.9 - Sepsis, unspecified organism (5) ARF (acute renal failure) Assessment/Plan: -much improved -nephrology on board Problems reviewed: Yes Code(s): N17.9 - ACUTE KIDNEY FAILURE, UNSPECIFIED (6) Altered mental status Assessment/Plan: -2/2 to sepsis -Diet resumed Problems reviewed: Yes Code(s): R41.82 - ALTERED MENTAL STATUS, UNSPECIFIED (7) Uncontrolled diabetes mellitus Assessment/Plan: -a1c at 9.3 -[facility] -endocrine consult -Diabetic low sodium diet Problems reviewed: Yes Code(s): E11.65 - TYPE 2 DIABETES MELLITUS WITH HYPERGLYCEMIA (8) Lactic acidosis Problems reviewed: Yes Code(s): E87.2 - ACIDOSIS (9) Hypokalemia Assessment/Plan: -Resolved Problems reviewed: Yes Code(s): E87.6 - HYPOKALEMIA (10) Anemia Assessment/Plan: -JONAS -H/H stable -Repeat Guaiac negative -monitor trend -Hematology consult appreciated -B12+ folate normal Problems reviewed: Yes Code(s): D64.9 - ANEMIA, UNSPECIFIED (11) Afib Assessment/Plan: -Chronic -On Lopressor---> decreased to 12.5 mg po BID -Cardiology on board -May need to add second agent if rate consistently >110bpm -Continue Eliquis Problems reviewed: Yes Code(s): I48.91 - UNSPECIFIED ATRIAL FIBRILLATION Qualifiers: Atrial fibrillation type: paroxysmal Qualified Code(s): I48.0 - Paroxysmal atrial fibrillation Assessment/Plan See problem list
[2019-02-25] MEDS ORDERED: METOPROLOL TARTRATE 25 MG TABLET (FP) PO SCH (12:31)
--- NOTE | 2019-02-25 12:31 | PN ---
Progress Note, Physician History of Present Illness: Pt seen and examined at bedside. She is awake and alert. She denies shortness of breath. - Current Medication List Current Medications: Active Medications Acetaminophen (Ofirmev Injection -) 1,000 mg IVPB Q6H PRN PRN Reason: FEVER Apixaban (Eliquis -) 5 mg PO BID COUNTS INCLUDE 234 BEDS AT [facility] Last Admin: 02/25/19 10:49 Dose: 5 mg Budesonide/Formoterol Fumarate (Symbicort 80/4.5mcg -) 2 puff IH BID COUNTS INCLUDE 234 BEDS AT THE [facility] Last Admin: 02/25/19 10:49 Dose: 2 puff Doxycycline Hyclate (Vibramycin -) 100 mg PO BID@1000,1800 COUNTS INCLUDE 234 BEDS AT THE [facility] Last Admin: 02/25/19 10:49 Dose: 100 mg Gabapentin (Neurontin -) 300 mg PO DAILY COUNTS INCLUDE 234 BEDS AT [facility] Last Admin: 02/25/19 10:49 Dose: 300 mg Meropenem 500 mg/ Dextrose 100 mls @ 200 mls/hr IVPB Q12H COUNTS INCLUDE 234 BEDS AT THE [facility] Last Admin: 02/25/19 10:47 Dose: 200 mls/hr Insulin Aspart (Novolog Vial Sliding Scale -) 1 vial SQ ACHS COUNTS INCLUDE 234 BEDS AT THE [facility]; Protocol Last Admin: 02/25/19 11:57 Dose: 4 unit Magnesium Oxide (Mag-Ox -) 400 mg PO BID COUNTS INCLUDE 234 BEDS AT [facility] Last Admin: 02/25/19 10:49 Dose: 400 mg Metoprolol Tartrate (Lopressor -) 12.5 mg PO BID COUNTS INCLUDE 234 BEDS AT [facility] Last Admin: 02/25/19 10:48 Dose: 12.5 mg Nystatin (Mycostatin Cream -) 1 applic TP Q6HPO COUNTS INCLUDE 234 BEDS AT [facility] Last Admin: 02/25/19 11:57 Dose: 1 applic - Objective Vital Signs: Vital Signs Temperature 98.5 F 02/25/19 09:06 Pulse Rate 108 H 02/25/19 09:06 Respiratory Rate 19 02/25/19 09:06 Blood Pressure 80/45 L 02/25/19 09:06 O2 Sat by Pulse Oximetry (%) 92 L 02/24/19 21:00 Constitutional: Yes: Calm Eyes: Yes: Conjunctiva Clear HENT: Yes: Atraumatic Cardiovascular: Yes: S1, S2 Respiratory: Yes: CTA Bilaterally Gastrointestinal: Yes: Soft, Abdomen, Obese Genitourinary: Yes: WNL Musculoskeletal: Yes: WNL Edema: Yes Edema: LLE: 1+, RLE: 1+ Neurological: Yes: Oriented Psychiatric: Yes: Oriented Labs: CBC, BMP 02/24/19 06:15 02/25/19 06:22 INR, PTT INR 1.71 (0.83-1.09) H 02/09/19 05:00 Fibrinogen 474.0 mg/dL (238-498) 02/11/19 08:58 Problem List - Problems (1) NOVA (acute kidney injury) Code(s): N17.9 - ACUTE KIDNEY FAILURE, UNSPECIFIED (2) Acute metabolic encephalopathy Code(s): G93.41 - METABOLIC ENCEPHALOPATHY (3) Sepsis Code(s): A41.9 - SEPSIS, UNSPECIFIED ORGANISM Qualifiers: Sepsis type: sepsis due to unspecified organism Sepsis acute organ dysfunction status: unspecified Qualified Code(s): A41.9 - Sepsis, unspecified organism (4) ARF (acute renal failure) Code(s): N17.9 - ACUTE KIDNEY FAILURE, UNSPECIFIED Assessment/Plan Current Medications Generic Name Dose Route Start Last Admin Trade Name Freq PRN Reason Stop Dose Admin Acetaminophen 1,000 mg 02/20/19 18:08 Ofirmev Injection - IVPB Q6H PRN FEVER Apixaban 5 mg 02/18/19 22:00 02/25/19 10:49 Eliquis - PO 5 mg BID LANCE Administration Budesonide/Formoterol Fumarate 2 puff 02/20/19 22:00 02/25/19 10:49 Symbicort 80/4.5mcg - IH 2 puff BID LANCE Administration Doxycycline Hyclate 100 mg 02/18/19 18:00 02/25/19 10:49 Vibramycin - PO 100 mg BID@1000,1800 LANCE Administration Gabapentin 300 mg 02/21/19 10:00 02/25/19 10:49 Neurontin - PO 300 mg DAILY LANCE Administration Meropenem 500 mg/ Dextrose 100 mls @ 200 mls/hr 02/20/19 22:00 02/25/19 10:47 IVPB 200 mls/hr Q12H LANCE Administration Insulin Aspart 1 vial 02/20/19 22:00 02/25/19 11:57 Novolog Vial Sliding Scale - SQ 4 unit ACHS LANCE Administration Protocol Magnesium Oxide 400 mg 02/24/19 14:00 02/25/19 10:49 Mag-Ox - PO 400 mg BID LANCE Administration Metoprolol Tartrate 12.5 mg 02/24/19 14:12 02/25/19 10:48 Lopressor - PO 12.5 mg BID LANCE Administration Nystatin 1 applic 02/21/19 00:00 02/25/19 11:57 Mycostatin Cream - TP 1 applic Q6HPO LANCE Administration Impression 1. NOVA 2. hyperkalemia 3. obesity 4. DM 5. a-fib 6. HTN 7. chronic lower extremity ulcers 8. gastritis 9. sepsis 10. hyperglycemia 11. metabolic acidosis 12. acute resp failure 13. hypernatremia Plan - hold diuretics as bp is low - renal function improved - hold lopressor for hypotension - follow up cxr - wound care - 2 gram sodium diabetic diet - monitor pulse ox
--- NOTE | 2019-02-25 12:37 | PN ---
Progress Note, Physician History of Present Illness: stable doing well no complaints - Current Medication List Current Medications: Active Medications Acetaminophen (Ofirmev Injection -) 1,000 mg IVPB Q6H PRN PRN Reason: FEVER Apixaban (Eliquis -) 5 mg PO BID [facility] Last Admin: 02/25/19 10:49 Dose: 5 mg Budesonide/Formoterol Fumarate (Symbicort 80/4.5mcg -) 2 puff IH BID [facility] Last Admin: 02/25/19 10:49 Dose: 2 puff Doxycycline Hyclate (Vibramycin -) 100 mg PO BID@1000,1800 [facility] Last Admin: 02/25/19 10:49 Dose: 100 mg Gabapentin (Neurontin -) 300 mg PO DAILY [facility] Last Admin: 02/25/19 10:49 Dose: 300 mg Meropenem 500 mg/ Dextrose 100 mls @ 200 mls/hr IVPB Q12H [facility] Last Admin: 02/25/19 10:47 Dose: 200 mls/hr Insulin Aspart (Novolog Vial Sliding Scale -) 1 vial SQ ACHS [facility]; Protocol Last Admin: 02/25/19 11:57 Dose: 4 unit Magnesium Oxide (Mag-Ox -) 400 mg PO BID [facility] Last Admin: 02/25/19 10:49 Dose: 400 mg Metoprolol Tartrate (Lopressor -) 12.5 mg PO BID [facility] Nystatin (Mycostatin Cream -) 1 applic TP Q6HPO [facility] Last Admin: 02/25/19 11:57 Dose: 1 applic - Objective Vital Signs: Vital Signs Temperature 98.5 F 02/25/19 09:06 Pulse Rate 108 H 02/25/19 09:06 Respiratory Rate 19 02/25/19 09:06 Blood Pressure 80/45 L 02/25/19 09:06 O2 Sat by Pulse Oximetry (%) 92 L 02/24/19 21:00 Constitutional: Yes: No Distress, Calm, Obese Cardiovascular: Yes: S1, S2 Gastrointestinal: Yes: Normal Bowel Sounds, Soft Musculoskeletal: Yes: WNL Extremities: Yes: Other Neurological: Yes: Alert, Oriented Psychiatric: Yes: Alert, Oriented Labs: CBC, BMP 02/24/19 06:15 02/25/19 06:22 INR, PTT INR 1.71 (0.83-1.09) H 02/09/19 05:00 Fibrinogen 474.0 mg/dL (238-498) 02/11/19 08:58 Assessment/Plan Problem List - Problems (1) Bilateral leg ulcer Code(s): L97.919 - NON-PRS CHRONIC ULC UNSP PRT OF R LOW LEG W UNSP SEVERITY; L97.929 - NON-PRS CHRONIC ULC UNSP PRT OF L LOW LEG W UNSP SEVERITY (2) Sepsis Code(s): A41.9 - SEPSIS, UNSPECIFIED ORGANISM Qualifiers: Sepsis type: sepsis due to unspecified organism Sepsis acute organ dysfunction status: unspecified Qualified Code(s): A41.9 - Sepsis, unspecified organism (3) ARF (acute renal failure) Code(s): N17.9 - ACUTE KIDNEY FAILURE, UNSPECIFIED (4) Afib Code(s): I48.91 - UNSPECIFIED ATRIAL FIBRILLATION Qualifiers: Atrial fibrillation type: paroxysmal Qualified Code(s): I48.0 - Paroxysmal atrial fibrillation (5) Altered mental status Code(s): R41.82 - ALTERED MENTAL STATUS, UNSPECIFIED (6) Cellulitis Code(s): L03.90 - CELLULITIS, UNSPECIFIED Qualifiers: Site of cellulitis: unspecified site Qualified Code(s): L03.90 - Cellulitis , unspecified (7) DM2 (diabetes mellitus, type 2) Code(s): E11.9 - TYPE 2 DIABETES MELLITUS WITHOUT COMPLICATIONS Qualifiers: Diabetes mellitus senior care insulin use: with 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 Diabetes mellitus complication detail: with other circulatory complications (8) Encephalopathy due to metabolic factor or toxin Code(s): [id number] - (9) HTN (hypertension) Code(s): I10 - ESSENTIAL (PRIMARY) HYPERTENSION (10) Hyperkalemia Code(s): E87.5 - HYPERKALEMIA (11) Lactic acidosis Code(s): E87.2 - ACIDOSIS (12) Leukocytosis Code(s): D72.829 - ELEVATED WHITE BLOOD CELL COUNT, UNSPECIFIED (13) Metabolic acidosis Code(s): E87.2 - ACIDOSIS (14) Morbid obesity Code(s): E66.01 - MORBID (SEVERE) OBESITY DUE TO EXCESS CALORIES (15) Severe sepsis Code(s): A41.9 - SEPSIS, UNSPECIFIED ORGANISM; R65.20 - SEVERE SEPSIS WITHOUT SEPTIC SHOCK (16) Venous stasis Code(s): I87.8 - OTHER SPECIFIED DISORDERS OF VEINS Assessment/Plan 53 y.o. female with PMH of chronic b/l LE ulcers, cellulitis, T2 DM, HTN, HLD, CKD, Anemia, GERD, obesity, AFIB, Asthma, and bipolar disorder brought to the ER by her brother for lethargy/AMS for the last several days noted to be in ARF , with leukocytosis, and b/l LE ulcers with malodorous drainage/erythema/ warmth. Currently receiving HD and hypotensive on Vasopressors Shock possibly from Sepsis-- on vasopressors AMS/Toxic metabolic encephalopathy/Uremia Infected b/l LE ulcers/cellulitis ARF on CKD - emergent HD started Hyperkalemia Acidosis Uremia Leukocytosis Lactic acidosis AFIB DM Morbid Obesity Asthma Bipolar d.o. HTN HLD hypotension can change abx to 500 mg po bid daily for 7 more days dosyy 100 mg po bid for 7 days
--- NOTE | 2019-02-25 12:52 | PN ---
Progress Note, Physician History of Present Illness: pulmonary alert,oob-chair,feeling better,-sob - Current Medication List Current Medications: Active Medications Acetaminophen (Ofirmev Injection -) 1,000 mg IVPB Q6H PRN PRN Reason: FEVER Apixaban (Eliquis -) 5 mg PO BID [facility] Last Admin: 02/25/19 10:49 Dose: 5 mg Budesonide/Formoterol Fumarate (Symbicort 80/4.5mcg -) 2 puff IH BID [facility] Last Admin: 02/25/19 10:49 Dose: 2 puff Doxycycline Hyclate (Vibramycin -) 100 mg PO BID@1000,1800 [facility] Last Admin: 02/25/19 10:49 Dose: 100 mg Gabapentin (Neurontin -) 300 mg PO DAILY [facility] Last Admin: 02/25/19 10:49 Dose: 300 mg Meropenem 500 mg/ Dextrose 100 mls @ 200 mls/hr IVPB Q12H [facility] Last Admin: 02/25/19 10:47 Dose: 200 mls/hr Insulin Aspart (Novolog Vial Sliding Scale -) 1 vial SQ ACHS [facility]; Protocol Last Admin: 02/25/19 11:57 Dose: 4 unit Magnesium Oxide (Mag-Ox -) 400 mg PO BID [facility] Last Admin: 02/25/19 10:49 Dose: 400 mg Metoprolol Tartrate (Lopressor -) 12.5 mg PO BID [facility] Nystatin (Mycostatin Cream -) 1 applic TP Q6HPO [facility] Last Admin: 02/25/19 11:57 Dose: 1 applic - Objective Vital Signs: Vital Signs Temperature 98.5 F 02/25/19 09:06 Pulse Rate 108 H 02/25/19 09:06 Respiratory Rate 19 02/25/19 09:06 Blood Pressure 80/45 L 02/25/19 09:06 O2 Sat by Pulse Oximetry (%) 92 L 02/24/19 21:00 Constitutional: Yes: Calm, Obese Eyes: Yes: WNL HENT: Yes: WNL Neck: Yes: WNL Cardiovascular: Yes: Pulse Irregular, S1, S2 Respiratory: Yes: Diminished Extremities: Yes: WNL Edema: Yes Labs: CBC, BMP 02/24/19 06:15 02/25/19 06:22 INR, PTT INR 1.71 (0.83-1.09) H 02/09/19 05:00 Fibrinogen 474.0 mg/dL (238-498) 02/11/19 08:58 Problem List - Problems (1) NOVA (acute kidney injury) Code(s): N17.9 - ACUTE KIDNEY FAILURE, UNSPECIFIED (2) Anemia Code(s): D64.9 - ANEMIA, UNSPECIFIED (3) Bilateral leg ulcer Code(s): L97.919 - NON-PRS CHRONIC ULC UNSP PRT OF R LOW LEG W UNSP SEVERITY; L97.929 - NON-PRS CHRONIC ULC UNSP PRT OF L LOW LEG W UNSP SEVERITY Qualifiers: Non-pressure ulcer stage: limited to breakdown of skin Qualified Code(s): L97.911 - Non-pressure chronic ulcer of unspecified part of right lower leg limited to breakdown of skin; L97.921 - Non-pressure chronic ulcer of unspecified part of left lower leg limited to breakdown of skin (4) Sepsis Code(s): A41.9 - SEPSIS, UNSPECIFIED ORGANISM Qualifiers: Sepsis type: sepsis due to unspecified organism Sepsis acute organ dysfunction status: unspecified Qualified Code(s): A41.9 - Sepsis, unspecified organism (5) Afib Code(s): I48.91 - UNSPECIFIED ATRIAL FIBRILLATION Qualifiers: Atrial fibrillation type: paroxysmal Qualified Code(s): I48.0 - Paroxysmal atrial fibrillation (6) Altered mental status Code(s): R41.82 - ALTERED MENTAL STATUS, UNSPECIFIED (7) HTN (hypertension) Code(s): I10 - ESSENTIAL (PRIMARY) HYPERTENSION (8) Lactic acidosis Code(s): E87.2 - ACIDOSIS (9) Morbid (severe) obesity due to excess calories Code(s): E66.01 - MORBID (SEVERE) OBESITY DUE TO EXCESS CALORIES Assessment/Plan A/P s/p Acute Respiratory Failure stable Cellulitis/Infected Leg Ulcers Septic Shock resolving Acute Kidney Injury requiring emergent HD now improving Hyperkalemia improved Lactic Acidosis resolved Atrial Fibrillation HTN DM Hyperlipidemia Anemia Hypotension - antibiotics per ID - wound care - monitor urine output, creatinine - monitor lytes - O2 to keep Spo2 >90% - BiPAP at night and PRN during day - rate control - continue anticoagulation - rehab/PT - DVT/GI prophylaxis - hold diuretics DR VANN
[2019-02-25 13:26] VITALS: PULSE 99
--- NOTE | 2019-02-25 13:40 | DS ---
Physical Examination Vital Signs: Vital Signs Temperature 98.5 F 02/25/19 13:25 Pulse Rate 99 H 02/25/19 13:25 Respiratory Rate 20 02/25/19 13:25 Blood Pressure 91/67 02/25/19 13:25 O2 Sat by Pulse Oximetry (%) 95 02/25/19 09:00 Findings/Remarks: 53yo woman with a PMH of a-fib on Eliquis, HTn, DM2, HLD, chronic BLE ulcers ( not seeing wound care), noncompliance who was brought to the ED by her brother for several days of AMS. Her brother is unable to provide much useful history, stating that she's been confused "for days" and the pt does not provide any information. She was noted to have extremely malodorous, wet dressings on both legs with multiple flies. All information received from ED resident-pt not able to provide history and no family is present During her stay patient was treated for sepsis with IV abx, was dialyzed and intubated. Constitutional: Yes: Well Nourished, No Distress, Calm, Obese Cardiovascular: Yes: Regular Rate and Rhythm Respiratory: Yes: Regular, Diminished (BLL) Gastrointestinal: Yes: Normal Bowel Sounds, Soft, Abdomen, Obese Musculoskeletal: Yes: Muscle Weakness Extremities: Yes: WNL Edema: Yes (BLLE non pitting edema) Neurological: Yes: Alert, Oriented Psychiatric: Yes: Alert, Oriented Labs: CBC, BMP 02/24/19 06:15 02/25/19 06:22 Discharge Summary Problems reviewed: Yes Reason For Visit: ACUTE RENAL FAILURE, ATRIAL FIBRILLATION, SEPSIS Current Active Problems NOVA (acute kidney injury) (Acute) Acute metabolic encephalopathy (Acute) Anemia (Acute) Bilateral leg ulcer (Acute) Hypokalemia (Acute) Metabolic encephalopathy (Acute) Noncompliance (Acute) Sepsis (Acute) Type 2 diabetes mellitus with hyperosmolarity with coma (Acute) Uncontrolled diabetes mellitus (Acute) Laboratory Last Values WBC 7.4 K/mm3 (4.0-10.0) 02/24/19 06:15 RBC 3.53 M/mm3 (3.60-5.2) L 02/24/19 06:15 Hgb 10.2 GM/dL (10.7-15.3) L 02/24/19 06:15 Hct 31.1 % (32.4-45.2) L 02/24/19 06:15 MCV 88.3 fl (80-96) 02/24/19 06:15 MCH 29.0 pg (25.7-33.7) 02/24/19 06:15 MCHC 32.9 g/dl (32.0-36.0) 02/24/19 06:15 RDW 16.9 % (11.6-15.6) H 02/24/19 06:15 Plt Count 503 K/MM3 (134-434) H 02/24/19 06:15 MPV 9.8 fl (7.5-11.1) 02/24/19 06:15 Absolute Neuts (auto) 5.8 K/mm3 (1.5-8.0) 02/18/19 05:30 Neutrophils % 71.1 % (42.8-82.8) 02/18/19 05:30 Neutrophils % (Manual) 67.4 % (42.8-82.8) 02/18/19 05:30 Band Neutrophils % 2.0 % 02/18/19 05:30 Lymphocytes % 15.1 % (8-40) D 02/18/19 05:30 Lymphocytes % (Manual) 14.3 % (8-40) 02/18/19 05:30 Monocytes % 7.5 % (3.8-10.2) 02/18/19 05:30 Monocytes % (Manual) 6 % (3.8-10.2) 02/18/19 05:30 Eosinophils % 4.9 % (0-4.5) H 02/18/19 05:30 Eosinophils % (Manual) 2.1 % (0-4.5) 02/18/19 05:30 Basophils % 1.4 % (0-2.0) 02/18/19 05:30 Basophils % (Manual) 5.1 % (0-2.0) H* D 02/18/19 05:30 Myelocytes % (Man) 0 % (0-2) 02/18/19 05:30 Promyelocytes % (Man) 0 % (0-2) 02/18/19 05:30 Blast Cells % (Manual) 0 % (0-0) 02/18/19 05:30 Nucleated RBC % 0 % (0-0) 02/18/19 05:30 Metamyelocytes 2 % (0-2) D 02/18/19 05:30 Hypochromia 0 02/14/19 05:45 Platelet Estimate Adequate 02/18/19 05:30 Polychromasia 0 02/14/19 05:45 Poikilocytosis 1+ 02/14/19 05:45 Basophilic Stippling 1+ 02/09/19 05:00 Anisocytosis 3+ 02/14/19 05:45 Microcytosis 3+ 02/14/19 05:45 Macrocytosis 0 02/14/19 05:45 Tear Drop Cells 2+ 02/14/19 05:45 ESR 74 mm/hr (0-30) H 02/08/19 01:45 Retic Count 0.78 % (0.5-1.5) 02/11/19 05:00 Haptoglobin 231 mg/dL (34-200) H 02/11/19 09:00 PT with INR 20.30 SEC (9.7-13.0) H 02/09/19 05:00 INR 1.71 (0.83-1.09) H 02/09/19 05:00 PTT (Actin FS) 34.1 SECONDS (25.2-36.5) 02/24/19 06:15 Fibrinogen 474.0 mg/dL (238-498) 02/11/19 08:58 Anticoagulation Therapy No Result Required. 02/08/19 17:00 Puncture Site Left brachial 02/08/19 22:35 ABG pH 7.33 (7.35-7.45) L 02/08/19 22:35 ABG pCO2 at Pt Temp 36.2 mmHg (35-45) 02/08/19 22:35 ABG pO2 at Pt Temp 364 mmHg (80-100) H 02/08/19 22:35 ABG HCO3 18.4 mmol/L (22-27) L 02/08/19 22:35 ABG O2 Sat (Measured) 99.9 % (95-98) H 02/08/19 22:35 ABG O2 Content 13.7 % vol 02/08/19 22:35 ABG Base Excess -6.4 meq/l (-2-2) L 02/08/19 22:35 Kwesi Test Positive 02/08/19 22:35 VBG pH 6.99 (7.31-7.41) L* 02/08/19 05:30 POC VBG pCO2 26.4 mmHg (38-52) L 02/08/19 05:30 POC VBG pO2 < 49 mmHg (28-48) H 02/08/19 05:30 VBG HCO3 6.1 mmol/L (23-29) L 02/08/19 05:30 VBG O2 Sat (Macho) 41.8 % (70-80) L 02/08/19 05:30 VBG Base Excess -24.4 meq/l (-2-2) L 02/08/19 05:30 Carboxyhemoglobin 0.6 % (0-2) 02/08/19 05:54 Methemoglobin < 1.0 % (0-2) 02/08/19 05:54 O2 Delivery Device Ventimask 02/08/19 17:00 Oxygen Flow Rate Yes 02/08/19 22:35 Vent Mode A/c 02/08/19 22:35 Vent Rate No Result Required. 02/08/19 17:00 Mechanical Rate No Result Required. 02/08/19 17:00 PEEP 5.0 cmH2O 02/08/19 22:35 Pressure Support Vent No Result Required. 02/08/19 17:00 Sodium 138 mmol/L (136-145) 02/25/19 06:22 Potassium 3.6 mmol/L (3.5-5.1) 02/25/19 06:22 Chloride 97 mmol/L (98-107) L 02/25/19 06:22 Carbon Dioxide 31 mmol/L (21-32) 02/25/19 06:22 Anion Gap 9 MMOL/L (8-16) 02/25/19 06:22 BUN 53.8 mg/dL (7-18) H 02/25/19 06:22 Creatinine 1.5 mg/dL (0.55-1.3) H 02/25/19 06:22 Est GFR (CKD-EPI)AfAm 44.99 02/25/19 06:22 Est GFR (CKD-EPI)NonAf 38.82 02/25/19 06:22 POC Glucometer 168 UNITS (80-120) 02/25/19 11:52 Random Glucose 132 mg/dL (74-106) H 02/25/19 06:22 Hemoglobin A1c % 9.3 % (4.2-6.3) H 02/10/19 05:30 Lactic Acid 1.4 mmol/L (0.4-2.0) 02/09/19 05:00 Calcium 9.3 mg/dL (8.5-10.1) 02/25/19 06:22 Phosphorus 3.7 mg/dL (2.5-4.9) 02/20/19 06:05 Magnesium 1.6 mg/dL (1.8-2.4) L 02/24/19 06:15 Iron 31 ug/dL (50-175) L 02/11/19 05:00 TIBC 131 ug/dL (250-450) L 02/11/19 05:00 Iron Saturation 23 % (17.5-39) 02/11/19 05:00 Unsaturated IBC 100 ug/dL (200-275) L 02/11/19 05:00 Erythropoietin 61.2 mIU/mL (2.6-18.5) H 02/12/19 05:25 Ferritin 231.1 ng/ml (8-388) 02/11/19 05:00 Total Bilirubin 0.7 mg/dL (0.2-1) 02/25/19 06:22 AST 11 U/L (15-37) L 02/25/19 06:22 ALT 16 U/L (13-61) 02/25/19 06:22 Alkaline Phosphatase 107 U/L (45-117) 02/25/19 06:22 Ammonia 54.50 umol/L (11-32) H 02/08/19 04:30 LD Total 150 U/L (84-246) 02/11/19 05:00 Troponin I < 0.02 ng/ml (0.00-0.05) 02/08/19 01:45 C-Reactive Protein 5.0 MG/DL (0.00-0.3) H 02/08/19 00:59 B-Natriuretic Peptide 1479.5 pg/ml (5-125) H 02/08/19 01:45 Total Protein 7.0 g/dl (6.4-8.2) 02/25/19 06:22 Albumin 2.6 g/dl (3.4-5.0) L 02/25/19 06:22 Triglycerides 388 mg/dL (0-150) H 02/10/19 05:30 Cholesterol 86 mg/dL (50-200) 02/10/19 05:30 Total LDL Cholesterol 27 mg/dL (5-100) 02/10/19 05:30 HDL Cholesterol 14 mg/dL (40-60) L 02/10/19 05:30 Vitamin B12 1070 pg/ml (193-986) H 02/11/19 05:00 Serum Folate 4 ng/mL (3.1-17.5) 02/11/19 05:00 Urine Color Red 02/08/19 16:00 Urine Appearance Turbid 02/08/19 16:00 Urine pH 5.0 (5.0-8.0) 02/08/19 16:00 Ur Specific Cassel 1.022 (1.010-1.035) 02/08/19 16:00 Urine Protein 3+ (NEGATIVE) H 02/08/19 16:00 Urine Glucose (UA) Trace (NEGATIVE) 02/08/19 16:00 Urine Ketones Trace (NEGATIVE) H 02/08/19 16:00 Urine Blood 3+ (NEGATIVE) H 02/08/19 16:00 Urine Nitrite Negative (NEGATIVE) 02/08/19 16:00 Urine Bilirubin 1+ (NEGATIVE) H 02/08/19 16:00 Urine Urobilinogen 0.2 mg/dL (0.2-1.0) 02/08/19 16:00 Ur Leukocyte Esterase 2+ (NEGATIVE) H 02/08/19 16:00 Urine WBC (Auto) 78 /hpf (0-5) 02/08/19 16:00 Urine RBC (Auto) 4162.4 /hpf (0-4) 02/08/19 16:00 Urine Casts (Auto) 121 /lpf (0-8) 02/08/19 16:00 U Pathogenic Cast Auto None seen /lpf (NEGATIVE) 02/08/19 16:00 U Epithel Cells (Auto) 34.8 /HPF (0-5/HPF) 02/08/19 16:00 Urine Crystals (Auto) Mod /hpf 02/08/19 09:15 Urine Bacteria (Auto) 5.1 /hpf (NEGATIVE) 02/08/19 16:00 Urine Yeast (Auto) None seen (NEGATIVE) 02/08/19 16:00 Stool Occult Blood Negative (NEGATIVE) 02/23/19 07:10 Random Vancomycin 12.4 ug/ml (18-26) L 02/16/19 05:00 Hep Bs Antigen Negative (Negative) 02/09/19 12:15 Hep C Ab Diagnostic <0.1 s/co ratio (0.0-0.9) 02/08/19 12:00 Microbiology 02/08/19 01:45 Blood - Peripheral Venous Blood Culture - Final NO GROWTH AFTER 5 DAYS INCUBATION 02/08/19 01:45 Blood - Peripheral Venous Blood Culture - Final NO GROWTH AFTER 5 DAYS INCUBATION 02/08/19 09:15 Leg - Right Lower Gram Stain - Final 02/08/19 09:15 Leg - Right Lower Wound Culture - Final Klebsiella Pneumoniae Morganella Morganii Pseudomonas Aeruginosa Enterococcus Faecalis Enterococcus Avium Prevotella Oralis 02/08/19 12:20 Leg - Left Lower Gram Stain - Final 02/08/19 12:20 Leg - Left Lower Wound Culture - Final Serratia Marcescens Enterococcus Faecalis Mr S Aureus 02/08/19 16:00 Urine - Urine Johnson Urine Culture - Final NO GROWTH OBTAINED 02/08/19 09:15 Urine - Urine Johnson Urine Culture - Final NO GROWTH OBTAINED Vital Signs Temp 98.5 F 02/25/19 13:25 Pulse 99 H 02/25/19 13:25 Resp 20 02/25/19 13:25 BP 91/67 02/25/19 13:25 Pulse Ox 95 02/25/19 09:00 Intake & Output 02/24/19 02/25/19 02/25/19 23:59 11:59 23:59 Intake Total 1190 100 Balance 1190 100 Intake: IV 500 Normal Saline - 500 ml @ 500 500 mls/hr IV ASDIR STA Rx#:[id number] IVPB 100 Oral 590 100 Other: Voiding Method Toilet Toilet # Unmeasured Voids Void 1 Bowel Movement Yes # Bowel Movements 1 Condition: Stable - Instructions Diet, Activity, Other Instructions: Follow up with: Cardiology: Saurav Carson MD at [facility] Nephrology: Silvestre Waddell MD PCP: Onur Delgado MD Infectious disease: Holley Herring MD at the [facility]-[phone] Referrals: Onur Maxwell MD [Primary Care Provider] - Lynda De Leon MD [Staff Physician] - Silvestre Epstein MD [Staff Physician] - Saurav Felix MD [Staff Physician] - Disposition: VNS/HOME HEALTH CARE - Home Medications Comprehensive Discharge Medication List: Ambulatory Orders Budesonide/Formeterol Fumarate [SYMBICORT 80/4.5mcg -] 2 puff IH BID inhaler Insulin Sliding Scale [Novolog Vial Sliding Scale -] 1 vial SQ ACHS units 02/20 Pantoprazole Sodium [Protonix -] 40 mg PO DAILY tablet.ec 07/04/17 Gabapentin 300 mg PO DAILY 07/15/18 Insulin Glargine,Hum.rec.anlog [Toujeo Max Solostar] 300 unit SQ BID #15 insuln.pen 07/22/18 Metoprolol Tartrate [Lopressor -] 25 mg PO DAILY #30 tablet 07/22/18 Polyethylene Glycol 3350 [Miralax 119 gm Btl -] 17 gm PO DAILY bottle 07/22/18 Apixaban [Eliquis -] 5 mg PO BID #60 tablet 11/22/18 Bacitracin - [Bacitracin Topical Ointment -] 1 applic TP BID tube 11/22/18 Clindamycin HCl 300 mg PO TID #15 capsule 11/22/18 Insulin (Levemir) [Levemir Vial] 25 units SQ BID units 11/22/18 Magnesium Oxide [Mag-Ox -] 400 mg PO BID tablet 11/22/18 Nystatin Cream [Mycostatin Cream -] 1 applic TP Q6HPO applic 11/22/18 Pantoprazole Sodium [Protonix -] 40 mg PO DAILY #30 tablet.ec 11/22/18 Prescription Drug Monitoring Program (I-STOP) results: I-STOP reviewed and no issues identified
--- NOTE | 2019-02-25 15:49 | PN ---
Progress Note, Physician History of Present Illness: seen and examined today in [facility]. States she is going home today. states she is feeling well. denies any lightheadedness dizziness, palpitations. she does have dyspnea with walking. - Current Medication List Current Medications: Active Medications Acetaminophen (Ofirmev Injection -) 1,000 mg IVPB Q6H PRN PRN Reason: FEVER Apixaban (Eliquis -) 5 mg PO BID REPLACED BY [facility] Last Admin: 02/25/19 10:49 Dose: 5 mg Budesonide/Formoterol Fumarate (Symbicort 80/4.5mcg -) 2 puff IH BID REPLACED BY [facility] Last Admin: 02/25/19 10:49 Dose: 2 puff Doxycycline Hyclate (Vibramycin -) 100 mg PO BID@1000,1800 REPLACED BY [facility] Last Admin: 02/25/19 10:49 Dose: 100 mg Gabapentin (Neurontin -) 300 mg PO DAILY REPLACED BY [facility] Last Admin: 02/25/19 10:49 Dose: 300 mg Meropenem 500 mg/ Dextrose 100 mls @ 200 mls/hr IVPB Q12H REPLACED BY [facility] Last Admin: 02/25/19 10:47 Dose: 200 mls/hr Insulin Aspart (Novolog Vial Sliding Scale -) 1 vial SQ ACHS REPLACED BY [facility]; Protocol Last Admin: 02/25/19 11:57 Dose: 4 unit Magnesium Oxide (Mag-Ox -) 400 mg PO BID REPLACED BY [facility] Last Admin: 02/25/19 10:49 Dose: 400 mg Metoprolol Tartrate (Lopressor -) 12.5 mg PO BID REPLACED BY [facility] Nystatin (Mycostatin Cream -) 1 applic TP Q6HPO REPLACED BY [facility] Last Admin: 02/25/19 11:57 Dose: 1 applic - Objective Vital Signs: Vital Signs Temperature 98.5 F 02/25/19 13:25 Pulse Rate 99 H 02/25/19 13:25 Respiratory Rate 20 02/25/19 13:25 Blood Pressure 91/67 02/25/19 13:25 O2 Sat by Pulse Oximetry (%) 95 02/25/19 09:00 Constitutional: Yes: No Distress, Calm, Obese Eyes: Yes: Conjunctiva Clear, EOM Intact HENT: Yes: Atraumatic, Normocephalic Neck: Yes: Supple, Trachea Midline Cardiovascular: Yes: Tachycardia, Pulse Irregular, S1, S2. No: Bradycardia, Bruit, JVD, Gallop, Murmur, Rub, S3, S4, Varicosities Respiratory: Yes: Regular. No: Rales, Rhonchi, SOB Gastrointestinal: Yes: Normal Bowel Sounds, Soft Extremities: Yes: WNL Edema: Yes Peripheral Pulses WNL: Yes Neurological: Yes: Alert, Oriented Psychiatric: Yes: Alert, Oriented Labs: CBC, BMP 02/24/19 06:15 02/25/19 06:22 INR, PTT INR 1.71 (0.83-1.09) H 02/09/19 05:00 Fibrinogen 474.0 mg/dL (238-498) 02/11/19 08:58 - ....Imaging Chest X-ray: Report Reviewed, Image Reviewed EKG: Report Reviewed, Image Reviewed Other: Report Reviewed, Image Reviewed (tele-AF, HR mildly elevated intermittently at rest, periods of RVR with exertion.) Assessment/Plan 53 year old female with a PMH of chronic AFIB on Eliquis, HTN, DM HLD, CKD, and chronic bilateral leg ulcers. She initially came to the hospital for altered mental status. . She was noted to be in acute renal failure with a BUN/Cre of 179/11 and septic shock 2/2 infected lower extremity wound ulcers. Treated in the ICU intubated, sedated, and on vasopressors. She received emergent hemodialysis in the ICU. Now on tele, extubated, BUN/creat improving. Echocardiogram 10/2018 normal EF no valvular disease PASP moderately elevated. Afib-HR mildly elevated at rest with periods of RVR with exertion, with low normal BP -issue with rate control as pt's BP does limit up titration of metoprolol -did not tolerate increase of Lopressor to 25mg bid due to hypotension -currently on lopressor 12.5mg bid. -diuretics were stopped -pt insistent on going home -asymptomatic when tachycardic -recc close outpatient fup for further medical management of HR control -digoxin can be considered as outpatient with caution due to CKD -discussed with pt the importance of close outpatient fup.
[2019-02-25 17:20] VITALS: BP 113/60; TEMP 98
== END 2019-02-25 18:10 | disposition home health service (06) | DRG 720 ==
LOC: JER 23:52 → JERBED 02-08 07:04 → JICU 02-08 09:33 → J4S 02-20 17:44
PROVIDERS: ADMIT Family Medicine; ATTEND Family Medicine
PROC: 5A1955Z Respiratory Ventilation, Greater than 96 Consecutive Hours (ICD-10-PCS; principal; 2019-02-08)
PROC: 0BH17EZ Insertion of Endotracheal Airway into Trachea, Via Natural or Artificial Opening (ICD-10-PCS; 2019-02-08)
PROC: 02HV33Z Insertion of Infusion Device into Superior Vena Cava, Percutaneous Approach (ICD-10-PCS; 2019-02-08)
DX: A41.9 Sepsis, unspecified organism (principal); G93.41 Metabolic encephalopathy; E78.5 Hyperlipidemia, unspecified; J96.01 Acute respiratory failure with hypoxia; F31.9 Bipolar disorder, unspecified; E87.5 Hyperkalemia; E87.2 Acidosis; E66.01 Morbid (severe) obesity due to excess calories; Z68.42 Body mass index [BMI] 45.0-49.9, adult; N17.9 Acute kidney failure, unspecified; R65.21 Severe sepsis with septic shock; I12.9 Hypertensive chronic kidney disease with stage 1 through stage 4 chronic kidney disease, or unspecified chronic kidney disease; N18.9 Chronic kidney disease, unspecified; E11.65 Type 2 diabetes mellitus with hyperglycemia; L97.911 Non-pressure chronic ulcer of unspecified part of right lower leg limited to breakdown of skin; L97.921 Non-pressure chronic ulcer of unspecified part of left lower leg limited to breakdown of skin; I48.0 Paroxysmal atrial fibrillation; I95.9 Hypotension, unspecified; D64.9 Anemia, unspecified; D72.829 Elevated white blood cell count, unspecified; R41.82 Altered mental status, unspecified; E87.6 Hypokalemia; E87.0 Hyperosmolality and hypernatremia; I27.20 Pulmonary hypertension, unspecified; K21.9 Gastro-esophageal reflux disease without esophagitis; Z91.14 Patient's other noncompliance with medication regimen
CPT/HCPCS: 31500; 36415; 36600; 70450-TC; 71045-TC-FY; 80048; 80053; 80061; 81003; 82140; 82272; 82375; 82607; 82668; 82728; 82746; 82803; 82962; 83010; 83036; 83050; 83540; 83550; 83605; 83615; 83721; 83735; 83880; 84100; 84484; 85025; 85027; 85044; 85384; 85610; 85651; 85730; 86140; 86803; 87040; 87070; 87076; 87086; 87186; 87205; 87340; 90732; 93005; 93010; 94002; 94660; 94761; 97116-GP; 97162-GP; 99285-25; G0009; G0480; J0131; J1644; P9047

== ENCOUNTER 2019-04-23 20:58 | Inpatient (IN) | payer OTHER ==
--- NOTE | 2019-04-23 21:20 | PDOC ---
History of Present Illness <Sana Lee - Last Filed: 04/23/19 23:59> - History of Present Illness Initial Comments: 04/23/19 22:36 Ms. Ross is a 53 y/o lady with pmhx of afib (on eluqis), HTN, TIIDM, HLD, CKD and chronic BLE ulcers presenting to the ED after being found down and altered at home by her brother who then called EMS. The patient was recently hospitalized 1.5 months ago in the [facility] ICU for a similar presentation. At that time the patient was found to be in acute renal failure with a BUN/Cre of 179/ 11 and septic shock 2/2 infected lower extremity wound ulcers. She was intubated in the ICU, sedated, and placed on vasopressors. She received emergent hemodialysis in the ICU at that time. She was also assessed by vascular surgery who found she had acceptable blood flow to her LE at that time L side was better than R. Today she is presenting with two cold feet, screaming in pain, and altered. The patient is oriented to self and location but not the year. Unable to obtain clear history as the patient 04/23/19 22:46 04/23/19 22:56 04/23/19 22:59 <Rachel Nichols - Last Filed: 04/24/19 00:26> - General Stated Complaint: LEG PAIN Time Seen by Provider: 04/23/19 21:20 Past History <Sana Lee - Last Filed: 04/23/19 23:59> - Past Medical History Anemia: No Asthma: Yes Cardiac Disorders: Yes (A-fib) COPD: No DVT: No Diabetes: Yes (on insulin) GI Disorders: Yes (Gallstones, GERD) HTN: Yes Hypercholesterolemia: Yes Psychiatric Problems: Yes (bipolar) - Immunization History Immunization Up to Date: Yes - Psycho Social/Smoking Cessation Hx Smoking History: Former smoker Have you smoked in the past 12 months: No Number of Cigarettes Smoked Daily: 0 If you are a former smoker, when did you quit?: quit age 13 'Breaking Loose' booklet given: 02/08/19 Hx Alcohol Use: No Drug/Substance Use Hx: No Substance Use Type: None Hx Substance Use Treatment: No <Rachel Nichols - Last Filed: 04/24/19 00:26> - Past Medical History Allergies/Adverse Reactions: Allergies Allergy/AdvReac Type Severity Reaction Status Date / Time nut - unspecified Allergy Verified 02/08/19 09:45 Penicillins Allergy Verified 02/08/19 09:45 walnut Allergy Verified 02/08/19 09:45 caviar Allergy Uncoded 02/17/19 11:35 Home Medications: Ambulatory Orders Budesonide/Formeterol Fumarate [SYMBICORT 80/4.5mcg -] 2 puff IH BID inhaler Insulin Sliding Scale [Novolog Vial Sliding Scale -] 1 vial SQ ACHS units 02/20 Pantoprazole Sodium [Protonix -] 40 mg PO DAILY tablet.ec 07/04/17 Polyethylene Glycol 3350 [Miralax 119 gm Btl -] 17 gm PO DAILY bottle 07/22/18 Apixaban [Eliquis -] 5 mg PO BID #60 tablet 11/22/18 Magnesium Oxide [Mag-Ox -] 400 mg PO BID tablet 11/22/18 Pantoprazole Sodium [Protonix -] 40 mg PO DAILY #30 tablet.ec 11/22/18 Apixaban [Eliquis -] 5 mg PO BID #60 tablet 02/25/19 Blood-Glucose Meter [Blood Glucose Monitoring] 1 each MC BID #1 each 02/25/19 Doxycycline Hyclate [Vibramycin -] 100 mg PO BID@1000,1800 #14 capsule 02/25/19 Gabapentin 300 mg PO DAILY #30 capsule 02/25/19 Insulin Glargine,Hum.rec.anlog [Toujeo Max Solostar] 10 unit SQ BID #1 insuln.pen 02/25/19 Lancets [Lancets Thin] 1 each MC BID #60 each 02/25/19 Magnesium Oxide [Mag-Ox -] 400 mg PO BID #60 tablet 02/25/19 Metoprolol Tartrate [Lopressor -] 12.5 mg PO BID #15 tablet 02/25/19 Nystatin Cream [Mycostatin Cream -] 1 applic TP BID #1 applic 02/25/19 Pen Needle, Diabetic [1St Tier Unifine Pentips Plus] 1 each MC BID #60 dis.needle 02/25/19 ED Treatment Course - LABORATORY CBC & Chemistry Diagram: 04/23/19 22:01 04/23/19 22:01 - ADDITIONAL ORDERS Additional order review: Laboratory Results 04/23/19 04/23/19 04/23/19 23:12 22:26 22:01 Sodium 133 L Potassium 8.9 H* Chloride 109 H Carbon Dioxide 11 L Anion Gap 13 BUN 182.0 H* Creatinine 11.5 H* Est GFR (CKD-EPI)AfAm 3.83 Est GFR (CKD-EPI)NonAf 3.31 POC Glucometer 182 Random Glucose 214 H Lactic Acid 4.0 H* Calcium 9.6 Total Bilirubin 0.2 AST 9 L ALT 11 L Alkaline Phosphatase 190 H Creatine Kinase 41 Troponin I < 0.02 Total Protein 9.0 H Albumin 3.5 04/23/19 04/23/19 23:12 22:01 RBC 4.12 MCV 91.8 MCHC 31.7 L RDW 15.3 MPV 10.7 Neutrophils % 94.8 H D Lymphocytes % 2.8 L D Monocytes % 2.3 L Eosinophils % 0.1 D Basophils % 0.0 POC Glucometer 182 - RADIOLOGY Radiology Studies Ordered: Category Date Time Status HEAD CT WITHOUT CONTRAST [CT] Stat CT Scan 04/23/19 21:30 Ordered CHEST X-RAY PORTABLE* [RAD] Stat Radiology 04/23/19 21:28 Ordered <Sana Lee - Last Filed: 04/23/19 23:59> - LABORATORY CBC & Chemistry Diagram: 04/23/19 22:01 04/23/19 22:01 <Rachel Nichols - Last Filed: 04/24/19 00:26> Medical Decision Making - Medical Decision Making 04/24/19 00:18 Ms. Ross is a 53 y/o lady with pmhx of afib (on eluqis), HTN, TIIDM, HLD, CKD and chronic BLE ulcers presenting to the ED after being found down and altered at home by her brother who then called EMS. will obtain: - CBC - CMP - LA - Blood cx - UA/ Ucx 04/24/19 00:22 - Pt CMP with elevated Cr to 11.5. Pt also hyperkalemic with wide QRS on EKG. Dr. Epstein consulted, appreciate recommendations: - start potassium treatment medically - start bicarb drip - HD catheter placed @ R IJ for urgent bedside dialysis - repeat potassium after HD - Vascular sx consulted, Dr. Calderon, appreciate recommendations - abx for sepsis - IV NS @125cc/h - LA elevated to 4, continue to trend <Rachel Nichols - Last Filed: 04/24/19 00:26> Discharge - Admission Yes <Sana Lee - Last Filed: 04/23/19 23:59> - Discharge Information Problems reviewed: Yes - Admission Yes <Rachel Nichols - Last Filed: 04/24/19 00:26> - Discharge Information Clinical Impression/Diagnosis: Acute renal failure, Electrolyte abnormality, Lactic acidosis, Renal failure ( ARF), acute on chronic Sepsis Qualifiers: Sepsis type: sepsis due to unspecified organism Sepsis acute organ dysfunction status: unspecified Qualified Code(s): A41.9 - Sepsis, unspecified organism
[2019-04-23 22:20] LABS: EOS % 0.1 % (0-4.5); HEMATOCRIT 37.8 % (32.4-45.2); LYMPH % 2.8 % (8-40); MCH 29.1 pg (25.7-33.7); MCHC 31.7 g/dl (32.0-36.0); MEAN CELL VOLUME 91.8 fl (80-96); MEAN PLT VOLUME 10.7 fl (7.5-11.1); MONO % 2.3 % (3.8-10.2); NEUT % 94.8 % (42.8-82.8); PLATELET COUNT 508 K/MM3 (134-434); RBC 4.12 M/mm3 (3.60-5.2); RDW 15.3 % (11.6-15.6)
[2019-04-23 22:24] LABS: WHITE BLOOD COUNT 33.6 K/mm3 (4.0-10.0)
[2019-04-23] MEDS ORDERED: morphine CARPU-JECT 4 MG/1 ML DISP.SYRIN IVPUSH ONE ×2 (22:25→23:30)
--- NOTE | 2019-04-23 22:34 | PDOC ---
Documentation entered by Eder Le SCRIBE, acting as scribe for Sana Lee MD. Sana Lee MD: This documentation has been prepared by the Rey ventura Daniel, SCRIBE, under my direction and personally reviewed by me in its entirety. I confirm that the documentation accurately reflects all work, treatment, procedures, and medical decision making performed by me. Attending Attestation - Resident Resident Name: Rachel Nichols - ED Attending Attestation I have performed the following: I have examined & evaluated the patient, The case was reviewed & discussed with the resident, I agree w/resident's findings & plan, Exceptions are as noted - HPI HPI: 04/23/19 22:30 Does not see this girl has had chest pain 53-year-old female history of hypertension diabetes hyperlipidemia and atrial fibrillation previously admitted in full renal failure requiring dialysis patient states that she is no longer on dialysis however comes in today status post a fall with an unwitnessed fall patient states that she was trying to get to her dog and reached over and suddenly fell and patient states she was found by her brother on the floor is unclear as to how long she was on the floor patient is very poor historian appears to be disoriented story is coming from call via EMS and EMS report patient currently denies any chest pain or shortness of breath but is having bilateral leg pain and knee pain - Physicial Exam PE: 04/23/19 22:31 Patient is awake disheveled malodorous very has dry mucous membranes lungs are clear bilaterally heart is regular without any murmurs rubs or gallops abdomen is obese but nontender extremities show bilateral brawny edema extremities are cold there is a weak but palpable DP pulse on the right the left DP pulse is nonpalpable. There is bilateral excoriation blistering and denuded skin to both anterior and lateral shins dressing is with serosanguineous drainage and there is some signs of necrosis with black drainage as well patient appears to be mottled she is alert and oriented to person only is disoriented to place and date moves all 4 extremities ultrasound detects a dopplerable PT pulse on the left but no DP pulse there is a detectable popliteal and femoral pulse on the left - Medical Decision Making 04/23/19 22:32 53-year-old female history of hypertension hyperlipidemia previous renal disease atrial fibrillation with an unknown fall with unknown downtime apparently altered confused appears mottled with bilateral leg wounds and a nonpalpable pulse in the left leg. Differential includes ischemic leg lactic acidosis severe sepsis head trauma or subsequent ICH other infection such as pneumonia aspiration or UTI. The concerns for renal failure rhabdomyolysis due to the unknown downtime syncope and LA are also considered or dysrhythmia. Plan EKG CBC CMP septic work-up including lactic acid Doppler pulses were detected on the left PT but absent on the DP. Will consult vascular surgery patient will need a CT head to rule out any ICH and possibly an angios the left leg pending her creatinine. IV hydration and pain control dressings were placed on bilateral legs will be given Vanco and aztreonam for concerns for sepsis and severe cellulitis 04/23/19 23:09 Patient with severe renal failure on her labs noted wide-complex on the EKG therefore patient was prophylactically given calcium and sodium bicarb. She was ordered for a liter of fluid the patient was also given a DuoNeb insulin and D50 to treat her hyperkalemia. Discussed with renal as patient will likely need emergent dialysis also placed a call to vascular for concerns for decreased pulses in her left foot and severe sepsis due to leg wounds patient be ordered for vancomycin and aztreonam discussed with the ICU patient will be admitted to the ICU discussed with the patient's brother who states that the patient has not wanted permanent dialysis access to be placed in the past however would like temporizing dialysis was consented for temporary dialysis access to be placed and dialysis to be initiated Critical Care Total Critical Care Time (in minutes): 60 Critical Care Statement: The care of this patient involved high complexity decision making to prevent further life threatening deterioration of the patient 's condition and/or to evaluate & treat vital organ system(s) failure or risk of failure. needed emergency dialysis. d/w patient and her brother. consented. placed trialysis cathetar right IJ under us guidance. pt with widened qrs, hyperkalemia. was given 2 doses of calclium gluconate, bicarb, duoneb. and abx for sepsis. renal consulted. will get emergency dialysis in ICU.
[2019-04-23] MEDS ORDERED: SODIUM CHLORIDE 0.9% 1000 ML INFUS.BAG IV ONE (22:35)
[2019-04-23] MEDS ORDERED: morphine SULFATE 4 MG/ML VIAL ONE ×2 (22:40→23:31)
[2019-04-23] MEDS ORDERED: CALCIUM GLUCONATE 10% - 1,000 MG/10 ML VIAL ONE ×3 (22:43→23:30)
[2019-04-23] MEDS ORDERED: SODIUM BICARBONATE 8.4% 50 MEQ/50 ML VIAL ONE (22:43)
[2019-04-23 22:45] LABS: PLATELET ESTIMATE INCREASED
[2019-04-23 22:51] LABS: ALBUMIN 3.5 g/dl (3.4-5.0); ALK PHOS 190 U/L (45-117); ANION GAP 13 MMOL/L (8-16); BILIRUBIN,TOTAL 0.2 mg/dL (0.2-1); CALCIUM 9.6 mg/dL (8.5-10.1); CHLORIDE 109 mmol/L (98-107); CO2 11 mmol/L (21-32); GLUCOSE,RANDOM 214 mg/dL (74-106); SGOT/AST 9 U/L (15-37); SGPT/ALT 11 U/L (13-61); SODIUM 133 mmol/L (136-145)
[2019-04-23 22:52] LABS: CREATININE 11.5 mg/dL (0.55-1.3)
[2019-04-23] MEDS ORDERED: SODIUM BICARBONATE 4.2% 5 MEQ/10 ML DISP.SYRIN IVPUSH ONE (22:52)
[2019-04-23 22:53] LABS: POTASSIUM 8.9 mmol/L (3.5-5.1)
[2019-04-23] MEDS ORDERED: CALCIUM GLUCONATE 10% - 1,000 MG/10 ML VIAL IVPUSH ONE (22:53)
[2019-04-23] MEDS ORDERED: INSULIN REGULAR HUMAN 100 UNITS/ML *VIAL IVPUSH ONE (22:54)
[2019-04-23] MEDS ORDERED: DEXTROSE 50%-WATER - 25 GM/50 ML VIAL IVPUSH ONE (22:54)
[2019-04-23] MEDS ORDERED: ALBUTEROL SO4 2.5/IPRATROPIUM 0.5 INH SOL 3 ML VIAL.NEB. NEB ONE ×2 (22:55→23:05)
[2019-04-23] MEDS ORDERED: INSULIN REGULAR HUMAN 100 UNITS/ML *VIAL ONE (23:06)
[2019-04-23] MEDS ORDERED: DEXTROSE 50%-WATER 25 GM/50 ML DISP.SYRIN ONE (23:06)
--- NOTE | 2019-04-23 23:11 | CONSULT ---
Consult Consult Specialty:: Nephrology Reason for Consultation:: NOVA - History of Present Illness Chief Complaint: found down by he brother who called ems History of Present Illness: Pt is a 53 year old female with pmhx of NOVA, CKD, a-fib, htn, DM, chronic lower ext ulcers who was found down by her brother and brought to the ER. It is not clear how long she was down. She was found to be in acute renal failure and found to be hyperkalemic. She has presented to the ER several times in the past with the same presentation. She has required emergent HD several times in the past as well. She is confused an unable to give much history. She has lower ext wounds that are malodorous. I was called as a stat consult. - History Source History Provided By: Medical Record - Past Medical History Cardio/Vascular: Yes: AFIB, HTN Pulmonary: Yes: Asthma Gastrointestinal: Yes: Other (gallstones) Hepatobiliary: Yes: Cholelithiasis (passed without surgery), Other (fatty liver) Renal/: Yes: Renal Inusuff Infectious Disease: Yes: Other (LE cellulitis) Psych: Yes: Bipolar Endocrine: Yes: Diabetes Mellitus Dermatology: Yes: Cellulitis (b/l LE with ulcerations) Additional Medical History: obesity - Alcohol/Substance Use Hx Alcohol Use: No History of Substance Use: reports: Prescription (narcotics) - Smoking History Smoking history: Former smoker Have you smoked in the past 12 months: No Aproximately how many cigarettes per day: 0 If you are a former smoker, when did you quit?: quit age 13 - Social History Usual Living Arrangement: With Spouse ADL: Independent 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 History of Recent Travel: No Home Medications - Allergies Allergies/Adverse Reactions: Allergies Allergy/AdvReac Type Severity Reaction Status Date / Time nut - unspecified Allergy Verified 02/08/19 09:45 Penicillins Allergy Verified 02/08/19 09:45 walnut Allergy Verified 02/08/19 09:45 caviar Allergy Uncoded 02/17/19 11:35 - Home Medications Home Medications: Ambulatory Orders Budesonide/Formeterol Fumarate [SYMBICORT 80/4.5mcg -] 2 puff IH BID inhaler Insulin Sliding Scale [Novolog Vial Sliding Scale -] 1 vial SQ ACHS units 02/20 Pantoprazole Sodium [Protonix -] 40 mg PO DAILY tablet.ec 07/04/17 Polyethylene Glycol 3350 [Miralax 119 gm Btl -] 17 gm PO DAILY bottle 07/22/18 Apixaban [Eliquis -] 5 mg PO BID #60 tablet 11/22/18 Magnesium Oxide [Mag-Ox -] 400 mg PO BID tablet 11/22/18 Pantoprazole Sodium [Protonix -] 40 mg PO DAILY #30 tablet.ec 11/22/18 Apixaban [Eliquis -] 5 mg PO BID #60 tablet 02/25/19 Blood-Glucose Meter [Blood Glucose Monitoring] 1 each MC BID #1 each 02/25/19 Doxycycline Hyclate [Vibramycin -] 100 mg PO BID@1000,1800 #14 capsule 02/25/19 Gabapentin 300 mg PO DAILY #30 capsule 02/25/19 Insulin Glargine,Hum.rec.anlog [Toujeo Max Solostar] 10 unit SQ BID #1 insuln.pen 02/25/19 Lancets [Lancets Thin] 1 each MC BID #60 each 02/25/19 Magnesium Oxide [Mag-Ox -] 400 mg PO BID #60 tablet 02/25/19 Metoprolol Tartrate [Lopressor -] 12.5 mg PO BID #15 tablet 02/25/19 Nystatin Cream [Mycostatin Cream -] 1 applic TP BID #1 applic 02/25/19 Pen Needle, Diabetic [1St Tier Unifine Pentips Plus] 1 each MC BID #60 dis.needle 02/25/19 Family Medical History Family History: Denies Review of Systems Unable to obtain ROS, reason: confused Physical Exam Constitutional: Yes: Moderate Distress Eyes: Yes: Conjunctiva Clear HENT: Yes: Atraumatic Cardiovascular: Yes: S1, S2 Respiratory: Yes: On Nasal O2, Rhonchi Gastrointestinal: Yes: Soft, Abdomen, Obese Renal/: Yes: Incontinence Musculoskeletal: Yes: Muscle Weakness Edema: Yes (left leg colder) Edema: LLE: 2+, RLE: 2+ Wound/Incision: Yes: Draining, Reddened, Bleeding Neurological: Yes: Confusion Labs: CBC, BMP 04/23/19 22:01 04/23/19 22:01 Laboratory Tests 02/08/19 02/08/19 02/08/19 04:30 05:54 22:35 WBC Hgb Plt Count ABG pH 7.01 L* 7.33 L Sodium 136 Potassium 7.4 H* Chloride Carbon Dioxide Anion Gap BUN 163.2 H* Creatinine 11.0 H* Est GFR (CKD-EPI)NonAf Random Glucose Lactic Acid Total Protein 04/23/19 04/23/19 04/23/19 22:01 22:01 22:26 WBC 33.6 H* Hgb 12.0 Plt Count 508 H ABG pH Sodium 133 L Potassium 8.9 H* Chloride 109 H Carbon Dioxide 11 L Anion Gap 13 BUN 182.0 H* Creatinine 11.5 H* Est GFR (CKD-EPI)NonAf 3.31 Random Glucose 214 H Lactic Acid 4.0 H* Total Protein 9.0 H Problem List - Problems (1) NOVA (acute kidney injury) Code(s): N17.9 - ACUTE KIDNEY FAILURE, UNSPECIFIED (2) ARF (acute renal failure) Code(s): N17.9 - ACUTE KIDNEY FAILURE, UNSPECIFIED (3) Afib Code(s): I48.91 - UNSPECIFIED ATRIAL FIBRILLATION Qualifiers: Atrial fibrillation type: paroxysmal Qualified Code(s): I48.0 - Paroxysmal atrial fibrillation Assessment/Plan Impression 1. NOVA 2. hyperkalemia 3. obesity 4. DM 5. a-fib 6. HTN 7. chronic lower extremity ulcers 8. gastritis 9. sepsis 10. hyperglycemia 11. metabolic acidosis 12. peripheral vascular disease Plan - start potassium treatment medically - HD catheter being placed for urgent bedside dialysis - start bicarb drip - repeat potassium after HD - follow cxr for placement - vascular eval called by er - abx for sepsis - cont fluids - trend lactic acid
[2019-04-24] MEDS ORDERED: SODIUM BICARBONATE 8.4% 50 MEQ/50 ML DISP.SYRIN IVPUSH ONE (00:03)
[2019-04-24] MEDS ORDERED: CEFEPIME HCL/D5W 1 GM/50 ML BAG IVPB ONE ×2 (00:39→14:18)
[2019-04-24] MEDS ORDERED: AZTREONAM 1 GM VIAL (RESTRICTED TO ID) IVPB ONE (00:44)
[2019-04-24 01:03] LABS: EPI CELLS 26.9 /HPF (0-5/HPF); HYALINE CASTS 69 /lpf (0-8); URINE APPEARANCE TURBID; URINE BACTERIA 202.4 /hpf (NEGATIVE); URINE BILIRUBIN 2+ (NEGATIVE); URINE COLOR DK YELLOW; URINE GLUCOSE (UA) TRACE (NEGATIVE); URINE KETONE TRACE (NEGATIVE); URINE LEUK ESTERASE 2+ (NEGATIVE); URINE NITRITE NEGATIVE (NEGATIVE); URINE PROTEIN 1+ (NEGATIVE); URINE WBC 53 /hpf (0-5)
[2019-04-24 01:07] LABS: URINE RBC 11.8 /hpf (0-4); YEAST NONE SEEN (NEGATIVE)
--- NOTE | 2019-04-24 01:10 | CONSULT ---
Consultation: REQUESTING PROVIDER: CONSULT REQUEST: We have been asked to medically evaluate this patient for ICU admission for acute renal failure and sepsis. HISTORY OF PRESENT ILLNESS: 53 y/o/f with PMHx of afib (on eluqis), HTN, DM, HLD, CKD and chronic BLE ulcers presenting to the ED after being found down for unknown amount of time at home by her brother with altered mental status. Patient is a poor historian, history obtained from chart review. Patient does not recall how long she was on the ground for or what caused her to fall. She has chronic leg wounds on both shins. Patient was admitted to the ICU for similar presentation earlier this year. In the ER patient was found to have WBC of 33.6, K+ of 8.9, BUN/Cr of 182/11.5, Lactic Acid 4.0 with widened QRS complex on EKG. Nephrology consulted, agreed with need for immediate HD. Trialysis catheter placed in RIJ for HD. Patient is talkative but confused in ED. REVIEW OF SYSTEMS: Unable to complete ROS 2/2 patient mental status PHYSICAL EXAMINATION Vital Signs - 24 hr 04/23/19 21:05 Temperature 95.6 F L Pulse Rate 77 Respiratory 28 H Rate Blood Pressure 152/135 H O2 Sat by Pulse 96 Oximetry (%) GENERAL: Awake, alert, oriented to self and place but not to date, confused, shivering HEAD: NC/AT EYES: PERRL, EOMI EARS, NOSE, THROAT: Dry mucous membrane NECK: trachea midline, RIJ trialysis catheter in place LUNGS: decreased breath sounds bilaterally, no accessory muscle use HEART: Tachycardic, irregularly irregular ABDOMEN: soft, obese, nondistended, tenderness to palpation over RLQ EXTREMITIES: 2+ pulses, warm, well-perfused. erythematous statis wounds without drainage on bilateral shins, malodorous NEUROLOGICAL: Patient uncooperative with exam, unable to assess PSYCHIATRIC: Cooperative. Good eye contact. Appropriate mood and affect. SKIN: Warm, dry, lesions on bilateral lower extremities Laboratory Results - last 24 hr 04/23/19 04/23/19 04/23/19 22:01 22:01 22:26 WBC 33.6 H* RBC 4.12 Hgb 12.0 Hct 37.8 D MCV 91.8 MCH 29.1 MCHC 31.7 L RDW 15.3 Plt Count 508 H MPV 10.7 Absolute Neuts (auto) 31.9 H Neutrophils % 94.8 H D Neutrophils % (Manual) 94.1 H Band Neutrophils % 0.0 Lymphocytes % 2.8 L D Lymphocytes % (Manual) 4.9 L D Monocytes % 2.3 L Monocytes % (Manual) 1 L D Eosinophils % 0.1 D Eosinophils % (Manual) 0.0 D Basophils % 0.0 Basophils % (Manual) 0.0 Myelocytes % (Man) 0 Promyelocytes % (Man) 0 Blast Cells % (Manual) 0 Nucleated RBC % 0 Metamyelocytes 0 D Hypochromia 1+ Platelet Estimate Increased Sodium 133 L Potassium 8.9 H* Chloride 109 H Carbon Dioxide 11 L Anion Gap 13 BUN 182.0 H* Creatinine 11.5 H* Est GFR (CKD-EPI)AfAm 3.83 Est GFR (CKD-EPI)NonAf 3.31 POC Glucometer Random Glucose 214 H Lactic Acid 4.0 H* Calcium 9.6 Total Bilirubin 0.2 AST 9 L ALT 11 L Alkaline Phosphatase 190 H Creatine Kinase 41 Troponin I < 0.02 Total Protein 9.0 H Albumin 3.5 Urine Color Urine Appearance Urine pH Ur Specific [place] Urine Protein Urine Glucose (UA) Urine Ketones Urine Blood Urine Nitrite Urine Bilirubin Urine Urobilinogen Ur Leukocyte Esterase Urine WBC (Auto) Urine Casts (Auto) U Epithel Cells (Auto) Urine Bacteria (Auto) 04/23/19 04/24/19 23:12 00:45 WBC RBC Hgb Hct MCV MCH MCHC RDW Plt Count MPV Absolute Neuts (auto) Neutrophils % Neutrophils % (Manual) Band Neutrophils % Lymphocytes % Lymphocytes % (Manual) Monocytes % Monocytes % (Manual) Eosinophils % Eosinophils % (Manual) Basophils % Basophils % (Manual) Myelocytes % (Man) Promyelocytes % (Man) Blast Cells % (Manual) Nucleated RBC % Metamyelocytes Hypochromia Platelet Estimate Sodium Potassium Chloride Carbon Dioxide Anion Gap BUN Creatinine Est GFR (CKD-EPI)AfAm Est GFR (CKD-EPI)NonAf POC Glucometer 182 Random Glucose Lactic Acid Calcium Total Bilirubin AST ALT Alkaline Phosphatase Creatine Kinase Troponin I Total Protein Albumin Urine Color Dk yellow Urine Appearance Turbid Urine pH 5.0 Ur Specific [place] 1.029 Urine Protein 1+ H Urine Glucose (UA) Trace Urine Ketones Trace H Urine Blood 2+ H Urine Nitrite Negative Urine Bilirubin 2+ H Urine Urobilinogen 1.0 Ur Leukocyte Esterase 2+ H Urine WBC (Auto) 53 Urine Casts (Auto) 69 U Epithel Cells (Auto) 26.9 Urine Bacteria (Auto) 202.4 Active Medications Generic Name Dose Route Start Last Admin Trade Name Opal PRN Reason Stop Dose Admin Enoxaparin Sodium 100 mg 04/24/19 10:00 Lovenox - SQ BID [facility] Metronidazole 500 mg in 100 mls @ 100 mls/hr 04/24/19 00:43 Flagyl 500mg Premixed Ivpb - IVPB 04/24/19 01:42 ONCE ONE Mupirocin 1 applic 04/24/19 10:00 Bactroban Ointment (For Decolonization) - NS 04/29/19 09:59 BID LANCE ASSESSMENT/PLAN: 53 y/o/f with PMHx of afib (on eluqis), HTN, DM, HLD, CKD and chronic BLE ulcers presenting to the ED after being found down at home by her brother with altered mental status. Patient found to have hyperkalemia, ARF, and widened QRS on EKG requiring urgent HD. R IJ trialysis catheter placed 04/24. #Neuro - Acute metabolic encephalopathy 2/2 uremia vs. electrolyte imbalances vs. sepsis - AAOx2 (self and place), monitor - CT head w/o contrast negative for acute pathology - Aspiration, fall precautions #Cardio - EKG showing wide QRS complexes with peaked T-waves. Repeat EKG post dialysis - Initial trop negative, will repeat with morning labs - hx of afib on eliquis, will hold eliquis, consider Heparin for AC - Resume home antihypertensives as hemodynamics allows - Start pressors for BP support if needed #Pulm - maintain SpO2 >90% - CXR with mild blunting of Left costophrenic angle, no other acute process noted - Symbicort BID #GI - Diabetic diet - Alk phos 190. AST/ALT 02/04 - Potassium at 8.9 #Renal - ARF of unclear etiology - BUN/Cr at 182/11.5 - Lactic Acid 4, will trend to normal - Right IJ trialysis catheter placed on 04/24 for urgent HD - Repeat potassium, lactic acid levels, EKG post HD - Sodium Bicarb x2, Calcium Gluconate x1, D50 x1 given in ED - follow I&Os - Renal on board, recs appreciated - Johnson placed for accurate I&Os #ID - Follow up Blood Cx, Urine Cx - Vascular Sx consulted for chronic LE wounds - Started on Aztreonam x1, Cefepime x1, Flagyl x1 in ED - ID on board, recs appreciated - Monitor for fevers and PRN Tylenol #Endo - hx DM - ISS - BGMs #Prophylaxis - Heparin - Protonix #FEN - Diabetic Diet with renal modifications - NS @75mls/hr #Disposition - ICU monitoring Visit type - Emergency Visit Emergency Visit: Yes ED Registration Date: 04/24/19 Care time: The patient presented to the Emergency Department on the above date and was hospitalized for further evaluation of their emergent condition. - New Patient This patient is new to me today: Yes Date on this admission: 04/24/19 - Critical Care Critical Care patient: Yes Total Critical Care Time (in minutes): 36 Critical Care Statement: The care of this patient involved high complexity decision making to prevent further life threatening deterioration of the patient 's condition and/or to evaluate & treat vital organ system(s) failure or risk of failure. ATTENDING PHYSICIAN STATEMENT I saw and evaluated the patient. I reviewed the resident's note and discussed the case with the resident. I agree with the resident's findings and plan as documented. SUBJECTIVE: OBJECTIVE: ASSESSMENT AND PLAN:
--- NOTE | 2019-04-24 01:24 | HP ---
CHIEF COMPLAINT: here after being found down and with an altered mental status and cold feet PCP:Dr. Smith HISTORY OF PRESENT ILLNESS: 53 year old obese female with past medical history significant for atrial fibrillation (on eliquis), hypertension, IDDM, hyperlipidemia, chronic kidney disease(not on permananet HD) and chronic BLE open ulcers who presented to the ED after being found down and altered at home by her brother who called EMS. The patient was recently hospitalized 1 1/2 month ago in the [facility] ICU for a similar presentation. At that time the patient was found to be in acute renal failure with a BUN /Creatinine of 179/11 and septic shock 2/2 infected lower extremity wound ulcers. She was intubated in the ICU, sedated, and placed on vasopressors. She received emergent hemodialysis in the ICU at that time. She was also assessed by Vascular Surgery who found she had acceptable blood flow to her left extremity at that time and left side was better than right. Today she presented with two cold feet and with an altered mental status. She is unable to provide a clear history. Currently she is talkative, however still confused. SBP is in the 150's, temperature 95.6, pulse 70's. ER course was notable for: (1)Acute renal failure - BUN 182/creatinine 11.5, sodium 133, cuevas placed with no urine output (2)Hyperkalemia -K+ 8.9, Pt in the ED was noted to have 30 seconds of polymorphic ventricular tacycardia and reportedly was unconscious for about 1-5 seconds. Patient was given IV Mag 2gm, CaGluc, Insulin and Bicarb. (3)EKG changes with widened QRS complex (4)WBC 33,000 with abnormal differential , lactic acidosis of 4. UA abnormal with 2+ leukoesterase and 2+ blood, negative nitrite. Received one dose of IV aztreonam and flagyl- ID consulted- Dr. Nava (5)Bilateral lower extremity open wounds and bilateral cold feet- Vascular consulted- Dr. Calderon (6)Altered mental status - CT scan of head pending (7)Hypothermia Patient was evaluated by Nephrology- Dr. Epstein and had Shyley placed at bedside and going to ICU for emergent dialysis. She is currently maintained on a bicarbonate gtt and IVF. Case was also discussed with Vascular Surgery -Dr. Calderon by ER physician and will evaluate patient. Recent Travel: unable to obtain PAST MEDICAL HISTORY: atrial fibrillation hypertension IDDM hyperlipidemia chronic renal disease chronic bilateral open wounds to lower extremities PAST SURGICAL HISTORY: unable to obtain Social History: Smoking:unable to obtain info from pt Alcohol:unable to obtain info from patient Drugs: unable to obtain info from patient Allergies nut - unspecified Allergy (Verified 04/24/19 00:40) Penicillins Allergy (Verified 04/24/19 00:40) walnut Allergy (Verified 04/24/19 00:40) caviar Allergy (Uncoded 04/24/19 00:40) HOME MEDICATIONS: Home Medications Medication Instructions Recorded Budesonide/Formeterol Fumarate 2 puff IH BID inhaler 02/20/17 [SYMBICORT 80/4.5mcg -] Insulin Sliding Scale [Novolog 1 vial SQ ACHS units 02/20/17 Vial Sliding Scale -] Pantoprazole Sodium [Protonix -] 40 mg PO DAILY tablet.ec 07/04/17 Polyethylene Glycol 3350 [Miralax 17 gm PO DAILY bottle 07/22/18 119 gm Btl -] Apixaban [Eliquis -] 5 mg PO BID #60 tablet 11/22/18 Magnesium Oxide [Mag-Ox -] 400 mg PO BID tablet 11/22/18 Pantoprazole Sodium [Protonix -] 40 mg PO DAILY #30 tablet.ec 11/22/18 Apixaban [Eliquis -] 5 mg PO BID #60 tablet 02/25/19 Blood-Glucose Meter [Blood Glucose 1 each MC BID #1 each 02/25/19 Monitoring] Doxycycline Hyclate [Vibramycin -] 100 mg PO BID@1000,1800 #14 capsule 02/25/19 Gabapentin 300 mg PO DAILY #30 capsule 02/25/19 Insulin Glargine,Hum.rec.anlog 10 unit SQ BID #1 insuln.pen 02/25/19 [Isabel Webb] Lancets [Lancets Thin] 1 each MC BID #60 each 02/25/19 Magnesium Oxide [Mag-Ox -] 400 mg PO BID #60 tablet 02/25/19 Metoprolol Tartrate [Lopressor -] 12.5 mg PO BID #15 tablet 02/25/19 Nystatin Cream [Mycostatin Cream -] 1 applic TP BID #1 applic 02/25/19 Pen Needle, Diabetic [1St Tier 1 each MC BID #60 dis.needle 02/25/19 Unifine Pentips Plus] REVIEW OF SYSTEMS unable to obtain accurate ROS due to patient mental status PHYSICAL EXAMINATION Vital Signs - 24 hr 04/23/19 21:05 Temperature 95.6 F L Pulse Rate 77 Respiratory 28 H Rate Blood Pressure 152/135 H O2 Sat by Pulse 96 Oximetry (%) GENERAL: awake and confused HEAD: normal EYES: pupils equal round EARS, NOSE, THROAT: ears normal LUNGS: breath sounds clear to auscultation bilaterally no wheezes and no crackles no accessory muscle use HEART: regular and bradycardic normal S1 and S2 ABDOMEN: soft nontender no acute abdomen MUSCULOSKELETAL: limited ROM due to bilateral leg wounds UPPER EXTREMITIES: no pitting edema LOWER EXTREMITIES:bilateral feet cold to touch with nonpalpable pulses, bilateral open wounds with odor and pain NEUROLOGICAL:confused SKIN: bilateral lower extremities cold to touch, lips pink Laboratory Results - last 24 hr 04/23/19 04/23/19 04/23/19 22:01 22:01 22:26 WBC 33.6 H* RBC 4.12 Hgb 12.0 Hct 37.8 D MCV 91.8 MCH 29.1 MCHC 31.7 L RDW 15.3 Plt Count 508 H MPV 10.7 Absolute Neuts (auto) 31.9 H Neutrophils % 94.8 H D Neutrophils % (Manual) 94.1 H Band Neutrophils % 0.0 Lymphocytes % 2.8 L D Lymphocytes % (Manual) 4.9 L D Monocytes % 2.3 L Monocytes % (Manual) 1 L D Eosinophils % 0.1 D Eosinophils % (Manual) 0.0 D Basophils % 0.0 Basophils % (Manual) 0.0 Myelocytes % (Man) 0 Promyelocytes % (Man) 0 Blast Cells % (Manual) 0 Nucleated RBC % 0 Metamyelocytes 0 D Hypochromia 1+ Platelet Estimate Increased Sodium 133 L Potassium 8.9 H* Chloride 109 H Carbon Dioxide 11 L Anion Gap 13 BUN 182.0 H* Creatinine 11.5 H* Est GFR (CKD-EPI)AfAm 3.83 Est GFR (CKD-EPI)NonAf 3.31 POC Glucometer Random Glucose 214 H Lactic Acid 4.0 H* Calcium 9.6 Total Bilirubin 0.2 AST 9 L ALT 11 L Alkaline Phosphatase 190 H Creatine Kinase 41 Troponin I < 0.02 Total Protein 9.0 H Albumin 3.5 Urine Color Urine Appearance Urine pH Ur Specific [place] Urine Protein Urine Glucose (UA) Urine Ketones Urine Blood Urine Nitrite Urine Bilirubin Urine Urobilinogen Ur Leukocyte Esterase Urine WBC (Auto) Urine Casts (Auto) U Epithel Cells (Auto) Urine Bacteria (Auto) 04/23/19 04/24/19 23:12 00:45 WBC RBC Hgb Hct MCV MCH MCHC RDW Plt Count MPV Absolute Neuts (auto) Neutrophils % Neutrophils % (Manual) Band Neutrophils % Lymphocytes % Lymphocytes % (Manual) Monocytes % Monocytes % (Manual) Eosinophils % Eosinophils % (Manual) Basophils % Basophils % (Manual) Myelocytes % (Man) Promyelocytes % (Man) Blast Cells % (Manual) Nucleated RBC % Metamyelocytes Hypochromia Platelet Estimate Sodium Potassium Chloride Carbon Dioxide Anion Gap BUN Creatinine Est GFR (CKD-EPI)AfAm Est GFR (CKD-EPI)NonAf POC Glucometer 182 Random Glucose Lactic Acid Calcium Total Bilirubin AST ALT Alkaline Phosphatase Creatine Kinase Troponin I Total Protein Albumin Urine Color Dk yellow Urine Appearance Turbid Urine pH 5.0 Ur Specific [place] 1.029 Urine Protein 1+ H Urine Glucose (UA) Trace Urine Ketones Trace H Urine Blood 2+ H Urine Nitrite Negative Urine Bilirubin 2+ H Urine Urobilinogen 1.0 Ur Leukocyte Esterase 2+ H Urine WBC (Auto) 53 Urine Casts (Auto) 69 U Epithel Cells (Auto) 26.9 Urine Bacteria (Auto) 202.4 ASSESSMENT/PLAN: In summary 53 year old obese female with a past medical history of atrial fibrillation (on eliquis), hypertension, IDDM, hyperlipidemia (not on meds), chronic kidney disease(not on permananet HD) and chronic BLE open ulcers who presented after being found down and with an altered mental status. She was hospitalized 1 1/2 month ago in the [facility] ICU for a similar presentation and at that time the patient was found to be in acute renal failure and septic shock 2/ 2 infected lower extremity wound ulcers. She was intubated in the ICU, sedated, and placed on vasopressors. She received emergent hemodialysis in the ICU at that time. Upon today's presentation she has two cold feet, malodorous bilateral leg wounds and an altered mental status. She has acute renal failure with severe hyperkalemia, with EKG changes with a widened QRS complex by EKG and as reported in the ED was noted to have 30 seconds of polymorphic ventricular tachycardia and was unconscious for about 1-5 seconds. She was given IV magnesium 2gm, Calcium gluconate, insulin and bicarbonate. Nephrology- Dr. Epstein was called STAT and evaluated patient. She had a shyley placement at bedside and she is going to the ICU to undergo emergent hemodialysis. She was also found to have significant leukocytosis (WBC 33,000) and an elevated lactic acid of 4. Bilateral leg wounds are open, malodorous, and painful and appear to be infected. #1 Acute on Chronic Renal Failure BUN 182/creatinine 11.5, sodium 133, has cuevas w/ no urine output, SBP 150's Nephrology- Dr. Epstein evaluated patient- going for emergent hemodialysis by radha which was placed at bedside Repeat BMP and lactic acid level after dialysis #2 Hyperkalemia Patient was given IV Mag 2gm, CaGluc, Insulin and Bicarb Repeat electrolytes after emergent dialysis this morning Monitor on telemetry for ventricular ectopy #3 Sepsis/ Bilateral Lower Extremity Open Malodorous Wounds w/Pain Received one dose of IV aztreonam and flagyl Wound and blood cultures pending Check venous doppler of BLE ID consulted- Dr Nava for antibiotic recommendations with ARF Vascular consulted- Dr. Calderon #4 Atrial Fibrillation On telemetry/EKG with episodes of bradycardia on eliquis which is on hold in setting of ARF Consider adding IV heparin gtt for stroke prophylaxsis, currently on DVT dosage Hold metoprolol for now for bradycardia Continue to monitor on telemetry #5 Hypertension SBP 150's Metoprolol on hold in setting of bradycardia #6 Diabetes Mellitus BGM before meals and at bedtime Novolin insulin sliding scale check hemoglobin a1c FEN IVF NS at 75cc/hr monitor electrolytes closely, repeat BMP after dialysis ADA/renal diet DVT Prophylaxis heparin sq Visit type - Emergency Visit Emergency Visit: Yes ED Registration Date: 04/24/19 Care time: The patient presented to the Emergency Department on the above date and was hospitalized for further evaluation of their emergent condition. - New Patient This patient is new to me today: Yes Date on this admission: 04/24/19 - Critical Care Critical Care patient: Yes Total Critical Care Time (in minutes): 45 Critical Care Statement: The care of this patient involved high complexity decision making to prevent further life threatening deterioration of the patient 's condition and/or to evaluate & treat vital organ system(s) failure or risk of failure.
[2019-04-24] MEDS ORDERED: SODIUM CHLORIDE 1,000 ML IV SCH (02:30)
[2019-04-24] MEDS ORDERED: NOREPINEPHRINE BITARTRATE 4 MG/4 ML ML IV ONE (03:56)
[2019-04-24 04:24] LABS: ARTERIAL BLD GAS O2 SATURATION 96.1 % (95-98); ARTERIAL BLOOD GAS BASE EXCESS -2.7 meq/l (-2-2); ARTERIAL BLOOD GAS PCO2 32.2 mmHg (35-45); ARTERIAL BLOOD GAS PO2 77.3 mmHg (80-100); ARTERIAL BLOOD GAS pH 7.42 (7.35-7.45)
[2019-04-24 04:25] LABS: ALLENS TEST POSITIVE
[2019-04-24] MEDS: NOREPINEPHRINE BITARTRATE 4,000 MCG in DEXTROSE 5%-WATER - 496 ML IV SCH (04:28)
[2019-04-24] MEDS ORDERED: INSULIN SLIDING SCALE (NOVOLOG) 1 VIAL SQ SCH (07:00)
[2019-04-24] MEDS: HEPARIN NA (PORCINE) 5,000 UNITS/ML 1ML VIAL SQ SCH ×3 (07:03→21:54)
[2019-04-24 07:17] LABS: BASO % 0.3 % (0-2.0); HEMATOCRIT 29.2 % (32.4-45.2); HEMOGLOBIN 9.8 GM/dL (10.7-15.3); LYMPH % 2.2 % (8-40); MCH 29.2 pg (25.7-33.7); MCHC 33.6 g/dl (32.0-36.0); MEAN CELL VOLUME 87.1 fl (80-96); MEAN PLT VOLUME 9.9 fl (7.5-11.1); MONO % 3.8 % (3.8-10.2); NEUT % 93.7 % (42.8-82.8); PLATELET COUNT 296 K/MM3 (134-434); RBC 3.36 M/mm3 (3.60-5.2); RDW 14.8 % (11.6-15.6); WHITE BLOOD COUNT 25.9 K/mm3 (4.0-10.0)
[2019-04-24 07:45] LABS: ALBUMIN 2.6 g/dl (3.4-5.0); BILIRUBIN,TOTAL 0.4 mg/dL (0.2-1); BLOOD UREA NITROGEN 86.8 mg/dL (7-18); CALCIUM 8.1 mg/dL (8.5-10.1); CREATININE 6.2 mg/dL (0.55-1.3); MAGNESIUM 1.8 mg/dL (1.8-2.4); PHOSPHOROUS 4.9 mg/dL (2.5-4.9); POTASSIUM 4.7 mmol/L (3.5-5.1); TOT PROT 6.4 g/dl (6.4-8.2)
[2019-04-24] MEDS: INSULIN SLIDING SCALE (NOVOLOG) 1 VIAL SQ SCH ×4 (07:48→21:58)
--- NOTE | 2019-04-24 08:32 | CONSULT ---
Consult Consult Specialty:: Pulm/CCM Reason for Consultation:: septic shock, Acute on chronic renal failure - History of Present Illness Chief Complaint: found down History of Present Illness: 53 y/o woman with CKD, DM, HTN, afib on Eliquis, chronic venous stasis with bilateral LE wounds, apparently poorly compliant with outpt followup was found down by brother, adorek how long on floor. Pt found to be altered, in acute on chronic renal failure with hyperkalemia and EKG changes, also with dirty UA now status post emergent HD, on low dose vasopressors, wbc improving on broad spectrum abx. - History Source History Provided By: Medical Record, Transfer Record Limitations to Obtaining History: Clinical Condition - Past Medical History Cardio/Vascular: Yes: AFIB, HTN Pulmonary: Yes: Asthma Gastrointestinal: Yes: Other (gallstones) Hepatobiliary: Yes: Cholelithiasis (passed without surgery), Other (fatty liver) Renal/: Yes: Renal Inusuff ...: No Infectious Disease: Yes: Other (LE cellulitis) Psych: Yes: Bipolar Endocrine: Yes: Diabetes Mellitus Dermatology: Yes: Cellulitis (b/l LE with ulcerations) Additional Medical History: obesity - Alcohol/Substance Use Hx Alcohol Use: No History of Substance Use: reports: Prescription (narcotics) - Smoking History Smoking history: Former smoker Have you smoked in the past 12 months: No Aproximately how many cigarettes per day: 0 If you are a former smoker, when did you quit?: quit age 13 - Social History Usual Living Arrangement: With Spouse ADL: Independent 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 History of Recent Travel: No Home Medications - Allergies Allergies/Adverse Reactions: Allergies Allergy/AdvReac Type Severity Reaction Status Date / Time nut - unspecified Allergy Verified 04/24/19 00:40 Penicillins Allergy Verified 04/24/19 00:40 walnut Allergy Verified 04/24/19 00:40 caviar Allergy Uncoded 04/24/19 00:40 - Home Medications Home Medications: Ambulatory Orders Budesonide/Formeterol Fumarate [SYMBICORT 80/4.5mcg -] 2 puff IH BID inhaler Insulin Sliding Scale [Novolog Vial Sliding Scale -] 1 vial SQ ACHS units 02/20 Pantoprazole Sodium [Protonix -] 40 mg PO DAILY tablet.ec 07/04/17 Polyethylene Glycol 3350 [Miralax 119 gm Btl -] 17 gm PO DAILY bottle 07/22/18 Apixaban [Eliquis -] 5 mg PO BID #60 tablet 11/22/18 Magnesium Oxide [Mag-Ox -] 400 mg PO BID tablet 11/22/18 Pantoprazole Sodium [Protonix -] 40 mg PO DAILY #30 tablet.ec 11/22/18 Apixaban [Eliquis -] 5 mg PO BID #60 tablet 02/25/19 Blood-Glucose Meter [Blood Glucose Monitoring] 1 each MC BID #1 each 02/25/19 Doxycycline Hyclate [Vibramycin -] 100 mg PO BID@1000,1800 #14 capsule 02/25/19 Gabapentin 300 mg PO DAILY #30 capsule 02/25/19 Insulin Glargine,Hum.rec.anlog [Toujeo Max Solostar] 10 unit SQ BID #1 insuln.pen 02/25/19 Lancets [Lancets Thin] 1 each MC BID #60 each 02/25/19 Magnesium Oxide [Mag-Ox -] 400 mg PO BID #60 tablet 02/25/19 Metoprolol Tartrate [Lopressor -] 12.5 mg PO BID #15 tablet 02/25/19 Nystatin Cream [Mycostatin Cream -] 1 applic TP BID #1 applic 02/25/19 Pen Needle, Diabetic [1St Tier Unifine Pentips Plus] 1 each MC BID #60 dis.needle 02/25/19 Family Medical History Family History: Unable to Obtain Review of Systems Unable to obtain ROS, reason: unable 2/2 clinical condi Physical Exam Vital Signs: Vital Signs Temperature 95.6 F L 04/24/19 02:00 Pulse Rate 91 H 04/24/19 04:28 Respiratory Rate 20 04/24/19 04:09 Blood Pressure 109/41 L 04/24/19 04:28 O2 Sat by Pulse Oximetry (%) 96 04/24/19 02:00 Constitutional: Yes: Mild Distress, Poor Hygeine Eyes: Yes: EOM Intact, PERRL HENT: Yes: Atraumatic, Normocephalic. No: Rhinnorhea Neck: Yes: Supple, Trachea Midline. No: Lymphadenopathy Cardiovascular: Yes: Tachycardia. No: Murmur Respiratory: Yes: CTA Bilaterally, Other (diminished bases). No: Accessory Muscle Use Gastrointestinal: Yes: Normal Bowel Sounds, Soft, Abdomen, Obese ...Rectal Exam: Yes: Deferred Renal/: No: CVA Tenderness - Left, CVA Tenderness - Right Breast(s): Yes: WNL Extremities: Yes: Cool, Delayed Capillary Refill, Other (severe venous stasis, bilateral malodorous carlin wounds and on multiple digits of both feet. doppler present) Edema: LLE: 2+, RLE: 2+ Integumentary: Yes: Venous Stasis Changes Wound/Incision: Yes: Draining, Excoriated Neurological: Yes: Cran Nerves II-XII Intact (still appears altered, follows simple command, c/w toxic metabolic and uremic encephalopathy) Labs: CBC, BMP 04/24/19 06:00 04/24/19 06:00 Imaging - Results Chest X-ray: Image Reviewed Assessment/Plan PULM/CCM Pt seen and examined in ICU A/ 53 y/o woman with CKD, DM, afib and chronic venous stasis wounds now with UTI , septic shock complicated by acute on chronic renal failure and metabolic encephalopathy\ P/ vasopressor for MAP 60-65 HD as per renal, avoid nephrotoxins broad spectrum abx as per ID, vanco post HD, renal dose surgical consult for possible debridement npo--place NGT hold eliquis for now, currently in sinus and may need procedure, can go on heparin gtt if needed Pt is critically ill, on vasopressor and altered.
--- NOTE | 2019-04-24 08:37 | CONSULT ---
- Consultation REQUESTING PROVIDER: CONSULT REQUEST: We have been asked to surgically evaluate this patient for venous stasis ulcers. PCP:Onur Maxwell HISTORY OF PRESENT ILLNESS: 53 y/o F w/ PMHx non-compliance, Morbid obesity, B/ L LE chronic Venous stasis ulcerations, CKD not on permanent HD, Chronic Afib on AC, HTN, poorly controlled T2DM, Dyslipedemia, Bipolar disorder, brought in by EMS for AMS. Patient with multiple similar admissions in the past, last being 1.5months ago. Seen by vascular in the past (October during a similar admission-wound care reccs given). Pt is currently altered and minimally responsive. Pt has followed up with Dr Calderon in the past, however last f/u per EMR appears to be 01/2017. In ER pt hypothermic/unresponsive with Hyperkalemia/ekg changes, +lactic acid, leukocytosis to 33k. Shiley placed for emergent HD. PMHx: as above PSHx: unable to obtain Home Medications Medication Instructions Recorded Budesonide/Formeterol Fumarate 2 puff IH BID inhaler 02/20/17 [SYMBICORT 80/4.5mcg -] Insulin Sliding Scale [Novolog 1 vial SQ ACHS units 02/20/17 Vial Sliding Scale -] Pantoprazole Sodium [Protonix -] 40 mg PO DAILY tablet.ec 07/04/17 Polyethylene Glycol 3350 [Miralax 17 gm PO DAILY bottle 07/22/18 119 gm Btl -] Apixaban [Eliquis -] 5 mg PO BID #60 tablet 11/22/18 Magnesium Oxide [Mag-Ox -] 400 mg PO BID tablet 11/22/18 Pantoprazole Sodium [Protonix -] 40 mg PO DAILY #30 tablet.ec 11/22/18 Apixaban [Eliquis -] 5 mg PO BID #60 tablet 02/25/19 Blood-Glucose Meter [Blood Glucose 1 each MC BID #1 each 02/25/19 Monitoring] Doxycycline Hyclate [Vibramycin -] 100 mg PO BID@1000,1800 #14 capsule 02/25/19 Gabapentin 300 mg PO DAILY #30 capsule 02/25/19 Insulin Glargine,Hum.rec.anlog 10 unit SQ BID #1 insuln.pen 02/25/19 [Isabel Webb] Lancets [Lancets Thin] 1 each MC BID #60 each 02/25/19 Magnesium Oxide [Mag-Ox -] 400 mg PO BID #60 tablet 02/25/19 Metoprolol Tartrate [Lopressor -] 12.5 mg PO BID #15 tablet 02/25/19 Nystatin Cream [Mycostatin Cream -] 1 applic TP BID #1 applic 02/25/19 Pen Needle, Diabetic [1St Tier 1 each MC BID #60 dis.needle 02/25/19 Unifine Pentips Plus] Allergies Allergy/AdvReac Type Severity Reaction Status Date / Time nut - unspecified Allergy Verified 04/24/19 00:40 Penicillins Allergy Verified 04/24/19 00:40 walnut Allergy Verified 04/24/19 00:40 caviar Allergy Uncoded 04/24/19 00:40 REVIEW OF SYSTEMS: unable to obtain, pt minimally resposive to questioning, per RN and ICU team, no significant change since admission PHYSICAL EXAM: GENERAL: Does not respond to questioning, +withdrawal to noxious stimuli, opens eyes when legs are elevated for evaluation. HEAD: Normal with no signs of trauma. LOWER EXTREMITIES: b/l les with 1+ edema, multiple superficial ulcerations by islands of skin over b/l les, circumferential over entirety of b/l calfs. Wounds appear unkept with moderate fibrinous exudate and serous drainage. +foul odor. +erythema b/l les. . Vasc: +biphasic dp/pt b/l les Vital Signs Temperature 95.6 F L 04/24/19 02:00 Pulse Rate 91 H 04/24/19 04:28 Respiratory Rate 20 04/24/19 04:09 Blood Pressure 109/41 L 04/24/19 04:28 O2 Sat by Pulse Oximetry (%) 96 04/24/19 02:00 Lab Results WBC 25.9 K/mm3 (4.0-10.0) H 04/24/19 06:00 RBC 3.36 M/mm3 (3.60-5.2) L 04/24/19 06:00 Hgb 9.8 GM/dL (10.7-15.3) L 04/24/19 06:00 Hct 29.2 % (32.4-45.2) L D 04/24/19 06:00 MCV 87.1 fl (80-96) 04/24/19 06:00 MCHC 33.6 g/dl (32.0-36.0) 04/24/19 06:00 RDW 14.8 % (11.6-15.6) 04/24/19 06:00 Plt Count 296 K/MM3 (134-434) D 04/24/19 06:00 Sodium 139 mmol/L (136-145) 04/24/19 06:00 Potassium 4.7 mmol/L (3.5-5.1) 04/24/19 06:00 Chloride 107 mmol/L (98-107) 04/24/19 06:00 Carbon Dioxide 21 mmol/L (21-32) 04/24/19 06:00 Anion Gap 12 MMOL/L (8-16) 04/24/19 06:00 BUN 86.8 mg/dL (7-18) H 04/24/19 06:00 Creatinine 6.2 mg/dL (0.55-1.3) H 04/24/19 06:00 Random Glucose 140 mg/dL (74-106) H 04/24/19 06:00 Calcium 8.1 mg/dL (8.5-10.1) L 04/24/19 06:00 A/P: 53 y/o F w/ PMHx non-compliance, Morbid obesity, B/L LE chronic Venous stasis ulcerations, Chronic Afib on AC, HTN, poorly controlled T2DM, Dyslipedemia, Bipolar disorder, brought in by EMS after being found down at home. Vascular consulted for venous stasis ulcers. B/L Les unkept with worsening venous stasis ulcers and cellulitis -Recommend damp to dry dressings with 4x4s, cover with kerlix and change daily -Offloading to b/l les while at rest -Abx per ID -glucose control -Venous duplex for r/o dvt (pt has h/o in the past) d/w attending Dr Calderon
[2019-04-24] MEDS ORDERED: ENOXAPARIN NA (PORCINE) 100 MG/1 ML DISP.SYRIN SQ SCH (10:00)
[2019-04-24] MEDS: NYSTATIN 100,000 UNIT/GM TOPICAL CREAM 15 GM TUBE TP SCH ×2 (10:20→21:55)
[2019-04-24] MEDS: PANTOPRAZOLE 40 MG TABLET PO SCH (10:21)
[2019-04-24] MEDS: POLYETHYLENE GLYCOL 3350 119 GM BTL PO SCH (10:21)
[2019-04-24] MEDS: BUDESONIDE/FORMETEROL FUMARATE 80/4.5 mcg INHALER IH SCH ×2 (10:23→21:59)
[2019-04-24] MEDS: MUPIROCIN 2% TOPICAL OINTMENT FOR DECOLONIZATION NS SCH ×2 (10:23→21:54)
[2019-04-24 10:41] LABS: ANISOCYTOSIS 0; MACROCYTOSIS 0; PLATELET ESTIMATE NORMAL
--- NOTE | 2019-04-24 12:27 | PN ---
Progress Note, Physician Chief Complaint: patient seen and examined in ICU on pressors awake in bed - Current Medication List Current Medications: Active Medications Budesonide/Formoterol Fumarate (Symbicort 80/4.5mcg -) 2 puff IH BID [facility] Last Admin: 04/24/19 10:23 Dose: Not Given Heparin Sodium (Porcine) (Heparin -) 5,000 unit SQ TID [facility] Last Admin: 04/24/19 07:03 Dose: 5,000 unit Sodium Chloride (Normal Saline -) 1,000 mls @ 75 mls/hr IV ASDIR [facility] Last Admin: 04/24/19 04:35 Dose: 75 mls/hr Norepinephrine Bitartrate 4, (000 mcg/ Dextrose) 500 mls @ 37.5 mls/hr IV TITR [facility]; Protocol Last Admin: 04/24/19 04:28 Dose: 5 mcg/min, 37.5 mls/hr Insulin Aspart (Novolog Vial Sliding Scale -) 1 vial SQ ACHS [facility]; Protocol Last Admin: 04/24/19 07:48 Dose: Not Given Mupirocin (Bactroban Ointment (For Decolonization) -) 1 applic NS BID [facility] Stop: 04/29/19 09:59 Last Admin: 04/24/19 10:23 Dose: 1 applic Nystatin (Mycostatin Cream -) 1 applic TP BID [facility] Last Admin: 04/24/19 10:20 Dose: 1 applic Pantoprazole Sodium (Protonix -) 40 mg PO DAILY [facility] Last Admin: 04/24/19 10:21 Dose: Not Given Polyethylene Glycol (Miralax (For Daily Use) -) 17 gm PO DAILY [facility] Last Admin: 04/24/19 10:21 Dose: Not Given - Objective Vital Signs: Vital Signs Temperature 99.1 F 04/24/19 09:00 Pulse Rate 97 H 04/24/19 09:00 Respiratory Rate 17 04/24/19 09:00 Blood Pressure 97/44 L 04/24/19 09:00 O2 Sat by Pulse Oximetry (%) 96 04/24/19 09:00 Constitutional: Yes: Calm Cardiovascular: Yes: Regular Rate and Rhythm, S1, S2 Respiratory: Yes: Diminished Gastrointestinal: Yes: Normal Bowel Sounds, Soft Extremities: Yes: Erythema, Other (ulceration open wounds bilaterally) Edema: Yes Labs: CBC, BMP 04/24/19 06:00 04/24/19 06:00 Problem List - Problems (1) NOVA (acute kidney injury) Assessment/Plan: emergent hD done now labs much improved potassium also improved as well bicarbonate level better Code(s): N17.9 - ACUTE KIDNEY FAILURE, UNSPECIFIED (2) Sepsis Assessment/Plan: secondary to LE wounds IV abx ID Eval presors keep MAP > 55 leukocytosis trending down icu monitoring lactic acidosis now improved bgm monitiring Code(s): A41.9 - SEPSIS, UNSPECIFIED ORGANISM (3) DM2 (diabetes mellitus, type 2) Assessment/Plan: sliding scale bgm monitoring hga1c noted Code(s): E11.9 - TYPE 2 DIABETES MELLITUS WITHOUT COMPLICATIONS Qualifiers: Diabetes mellitus snf insulin use: with snf use Diabetes mellitus complication detail: with other circulatory complications
--- NOTE | 2019-04-24 14:03 | PN ---
Progress Note, Physician History of Present Illness: Pt seen and examined at bedside. She tolerated HD early this morning. She is more awake and alert. - Current Medication List Current Medications: Active Medications Budesonide/Formoterol Fumarate (Symbicort 80/4.5mcg -) 2 puff IH BID [facility] Last Admin: 04/24/19 10:23 Dose: Not Given Heparin Sodium (Porcine) (Heparin -) 5,000 unit SQ TID [facility] Last Admin: 04/24/19 07:03 Dose: 5,000 unit Sodium Chloride (Normal Saline -) 1,000 mls @ 75 mls/hr IV [facility]IR [facility] Last Admin: 04/24/19 04:35 Dose: 75 mls/hr Norepinephrine Bitartrate 4, (000 mcg/ Dextrose) 500 mls @ 37.5 mls/hr IV TITR [facility]; Protocol Last Admin: 04/24/19 04:28 Dose: 5 mcg/min, 37.5 mls/hr Insulin Aspart (Novolog Vial Sliding Scale -) 1 vial SQ ACHS [facility]; Protocol Last Admin: 04/24/19 07:48 Dose: Not Given Mupirocin (Bactroban Ointment (For Decolonization) -) 1 applic NS BID [facility] Stop: 04/29/19 09:59 Last Admin: 04/24/19 10:23 Dose: 1 applic Nystatin (Mycostatin Cream -) 1 applic TP BID [facility] Last Admin: 04/24/19 10:20 Dose: 1 applic Pantoprazole Sodium (Protonix -) 40 mg PO DAILY [facility] Last Admin: 04/24/19 10:21 Dose: Not Given Polyethylene Glycol (Miralax (For Daily Use) -) 17 gm PO DAILY [facility] Last Admin: 04/24/19 10:21 Dose: Not Given - Objective Vital Signs: Vital Signs Temperature 99.1 F 04/24/19 09:00 Pulse Rate 97 H 04/24/19 09:00 Respiratory Rate 17 04/24/19 09:00 Blood Pressure 97/44 L 04/24/19 09:00 O2 Sat by Pulse Oximetry (%) 96 04/24/19 09:00 Constitutional: Yes: Calm Eyes: Yes: Conjunctiva Clear HENT: Yes: Atraumatic Cardiovascular: Yes: S1, S2 Respiratory: Yes: On Nasal O2 Gastrointestinal: Yes: Soft, Abdomen, Obese Genitourinary: Yes: Johnson Present, Oliguria Edema: Yes Wound/Incision: Yes: Open to air, Draining Neurological: Yes: Oriented Labs: CBC, BMP 04/24/19 06:00 04/24/19 06:00 - ....Imaging Chest X-ray: Report Reviewed Problem List - Problems (1) NOVA (acute kidney injury) Code(s): N17.9 - ACUTE KIDNEY FAILURE, UNSPECIFIED (2) ARF (acute renal failure) Code(s): N17.9 - ACUTE KIDNEY FAILURE, UNSPECIFIED (3) Afib Code(s): I48.91 - UNSPECIFIED ATRIAL FIBRILLATION Qualifiers: Atrial fibrillation type: paroxysmal Qualified Code(s): I48.0 - Paroxysmal atrial fibrillation Assessment/Plan Current Medications Generic Name Dose Route Start Last Admin Trade Name Freq PRN Reason Stop Dose Admin Budesonide/Formoterol Fumarate 2 puff 04/24/19 10:00 04/24/19 10:23 Symbicort 80/4.5mcg - IH Not Given BID LANCE Heparin Sodium (Porcine) 5,000 unit 04/24/19 06:00 04/24/19 07:03 Heparin - SQ 5,000 unit TID LANCE Administration Sodium Chloride 1,000 mls @ 75 mls/hr 04/24/19 02:30 04/24/19 04:35 Normal Saline - IV 75 mls/hr ASDIR L[facility] Administration Norepinephrine Bitartrate 4, 500 mls @ 37.5 mls/hr 04/24/19 04:00 04/24/19 04 :28 000 mcg/ Dextrose IV 5 mcg/min TITR LANCE 37.5 mls/hr Administration Protocol 5 MCG/MIN Insulin Aspart 1 vial 04/24/19 07:00 04/24/19 07:48 Novolog Vial Sliding Scale - SQ Not Given ACHS [facility] Protocol Mupirocin 1 applic 04/24/19 10:00 04/24/19 10:23 Bactroban Ointment (For Decolonization) - NS 04/29/19 09:59 1 applic BID [facility] Administration Nystatin 1 applic 04/24/19 10:00 04/24/19 10:20 Mycostatin Cream - TP 1 applic BID [facility] Administration Pantoprazole Sodium 40 mg 04/24/19 10:00 04/24/19 10:21 Protonix - PO Not Given DAILY [facility] Polyethylene Glycol 17 gm 04/24/19 10:00 04/24/19 10:21 Miralax (For Daily Use) - PO Not Given DAILY [facility] Impression 1. NOVA 2. hyperkalemia 3. obesity 4. DM 5. a-fib 6. HTN 7. chronic lower extremity ulcers 8. gastritis 9. sepsis 10. hyperglycemia 11. metabolic acidosis 12. peripheral vascular disease Plan - pt tolerated HD - potassium improved - cont with fluids - monitor urine output - evaluate for HD again tomorrow - vascular follow up - abx for sepsis
--- NOTE | 2019-04-24 14:12 | EKG ---
Test Reason : Blood Pressure : / mmHG Vent. Rate : 100 BPM Atrial Rate : 100 BPM P-R Int : 246 ms QRS Dur : 070 ms QT Int : 274 ms P-R-T Axes : 062 031 257 degrees QTc Int : 353 ms SINUS RHYTHM WITH 1ST DEGREE A-V BLOCK LOW VOLTAGE QRS ABNORMAL ECG WHEN COMPARED WITH ECG OF 23-APR-2019 21:50, PREVIOUS ECG HAS UNDETERMINED RHYTHM, NEEDS REVIEW RIGHT BUNDLE BRANCH BLOCK IS NO LONGER PRESENT CRITERIA FOR INFERIOR INFARCT ARE NO LONGER PRESENT Confirmed by GIFTY SNOWDEN MD ([id number]) on 04/24/2019 2:11:47 PM Referred By: Confirmed By:GIFTY SNOWDEN MD
--- NOTE | 2019-04-24 14:16 | EKG ---
Test Reason : Blood Pressure : / mmHG Vent. Rate : 083 BPM Atrial Rate : 083 BPM P-R Int : 000 ms QRS Dur : 162 ms QT Int : 300 ms P-R-T Axes : 000 -73 076 degrees QTc Int : 352 ms LOW JUNCTIONAL VS VENTRICULAR ESCAPE RHYTHM LEFT AXIS DEVIATION INFERIOR INFARCT , AGE UNDETERMINED ABNORMAL ECG Confirmed by GIFTY SNOWDEN MD ([id number]) on 04/24/2019 2:15:46 PM Referred By: Confirmed By:GIFTY SNOWDEN MD
[2019-04-24] MEDS ORDERED: VANCOMYCIN HCL 1,250 MG in DEXTROSE 5%-WATER - 250 ML IVPB ONE (14:20)
[2019-04-24] MEDS: SODIUM CHLORIDE 0.45% 1,000 ML IV SCH (14:43)
--- NOTE | 2019-04-24 16:09 | CON.ID ---
Consult Consult Specialty:: infectious disease Referred by:: dr franklin Reason for Consultation:: septic shock - History of Present Illness Chief Complaint: found on the floor by her brother History of Present Illness: 53 yo female found on the floor by her brother brought to ED found to be in renal failure and confused and hypothermic with elevated WBC potassium 8.9 and lactic acid of 4 on admission she had blood cultures drawn and was given azsctam in the ED she had emergent HD and was admitted to the ICU now with low grade fevers requiring levophed not intubated cpk is normal unknown penicillin allergy has gotten carbapenems in the past - History Source History Provided By: Medical Record Limitations to Obtaining History: Clinical Condition - Past Medical History Cardio/Vascular: Yes: AFIB, HTN Pulmonary: Yes: Asthma Gastrointestinal: Yes: Other (gallstones) Hepatobiliary: Yes: Cholelithiasis (passed without surgery), Other (fatty liver) Renal/: Yes: Renal Inusuff ...: No Infectious Disease: Yes: Other (LE cellulitis) Psych: Yes: Bipolar Endocrine: Yes: Diabetes Mellitus Dermatology: Yes: Cellulitis (b/l LE with ulcerations) Additional Medical History: obesity - Alcohol/Substance Use Hx Alcohol Use: No History of Substance Use: reports: Prescription (narcotics) - Smoking History Smoking history: Former smoker Have you smoked in the past 12 months: No Aproximately how many cigarettes per day: 0 If you are a former smoker, when did you quit?: quit age 13 - Social History Usual Living Arrangement: With Spouse ADL: Independent 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 History of Recent Travel: No Home Medications - Allergies Allergies/Adverse Reactions: Allergies Allergy/AdvReac Type Severity Reaction Status Date / Time nut - unspecified Allergy Verified 04/24/19 00:40 Penicillins Allergy Verified 04/24/19 00:40 walnut Allergy Verified 04/24/19 00:40 caviar Allergy Uncoded 04/24/19 00:40 - Home Medications Home Medications: Ambulatory Orders Budesonide/Formeterol Fumarate [SYMBICORT 80/4.5mcg -] 2 puff IH BID inhaler Insulin Sliding Scale [Novolog Vial Sliding Scale -] 1 vial SQ ACHS units 02/20 Pantoprazole Sodium [Protonix -] 40 mg PO DAILY tablet.ec 07/04/17 Polyethylene Glycol 3350 [Miralax 119 gm Btl -] 17 gm PO DAILY bottle 07/22/18 Apixaban [Eliquis -] 5 mg PO BID #60 tablet 11/22/18 Magnesium Oxide [Mag-Ox -] 400 mg PO BID tablet 11/22/18 Pantoprazole Sodium [Protonix -] 40 mg PO DAILY #30 tablet.ec 11/22/18 Apixaban [Eliquis -] 5 mg PO BID #60 tablet 02/25/19 Blood-Glucose Meter [Blood Glucose Monitoring] 1 each MC BID #1 each 02/25/19 Doxycycline Hyclate [Vibramycin -] 100 mg PO BID@1000,1800 #14 capsule 02/25/19 Gabapentin 300 mg PO DAILY #30 capsule 02/25/19 Insulin Glargine,Hum.rec.anlog [Toujeo Max Solostar] 10 unit SQ BID #1 insuln.pen 02/25/19 Lancets [Lancets Thin] 1 each MC BID #60 each 02/25/19 Magnesium Oxide [Mag-Ox -] 400 mg PO BID #60 tablet 02/25/19 Metoprolol Tartrate [Lopressor -] 12.5 mg PO BID #15 tablet 02/25/19 Nystatin Cream [Mycostatin Cream -] 1 applic TP BID #1 applic 02/25/19 Pen Needle, Diabetic [1St Tier Unifine Pentips Plus] 1 each MC BID #60 dis.needle 02/25/19 Family Medical History Family History: Unable to Obtain Review of Systems Unable to obtain ROS, reason: unable to obtain Physical Exam Vital Signs: Vital Signs Temperature 100.6 F H 04/24/19 15:00 Pulse Rate 98 H 04/24/19 15:00 Respiratory Rate 20 04/24/19 15:00 Blood Pressure 97/47 L 04/24/19 15:00 O2 Sat by Pulse Oximetry (%) 96 04/24/19 09:00 Constitutional: Yes: Mild Distress, Poor Hygeine HENT: Yes: Atraumatic, Normocephalic Neck: Yes: Supple Cardiovascular: Yes: Regular Rate and Rhythm Respiratory: Yes: CTA Bilaterally Gastrointestinal: Yes: Normal Bowel Sounds, Soft Extremities: Yes: Other (bilateral leg ulcers with drainage and erythema, +foul odor, +purulence) Edema: Yes Edema: LLE: 1+, RLE: 1+ Neurological: Yes: Confusion, Lethargy, Other (moans when touched, occasionally answers a question) Labs: CBC, BMP 04/24/19 06:00 04/24/19 06:00 cultures pending Imaging - Results Chest X-ray: Report Reviewed, Image Reviewed Ultrasound: Report Reviewed, Image Reviewed Problem List - Problems (1) Sepsis Code(s): A41.9 - SEPSIS, UNSPECIFIED ORGANISM (2) ARF (acute renal failure) Code(s): N17.9 - ACUTE KIDNEY FAILURE, UNSPECIFIED (3) Bilateral leg ulcer Code(s): L97.919 - NON-PRS CHRONIC ULC UNSP PRT OF R LOW LEG W UNSP SEVERITY; L97.929 - NON-PRS CHRONIC ULC UNSP PRT OF L LOW LEG W UNSP SEVERITY Qualifiers: Non-pressure ulcer stage: limited to breakdown of skin Qualified Code(s): L97.911 - Non-pressure chronic ulcer of unspecified part of right lower leg limited to breakdown of skin; L97.921 - Non-pressure chronic ulcer of unspecified part of left lower leg limited to breakdown of skin (4) DM2 (diabetes mellitus, type 2) Code(s): E11.9 - TYPE 2 DIABETES MELLITUS WITHOUT COMPLICATIONS Qualifiers: Diabetes mellitus alf insulin use: with 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 use Diabetes mellitus complication detail: with other circulatory complications (5) Infected pressure ulcer Code(s): L89.90 - PRESSURE ULCER OF UNSPECIFIED SITE, UNSPECIFIED STAGE; L08.9 - LOCAL INFECTION OF THE SKIN AND SUBCUTANEOUS TISSUE, UNSP (6) UTI (urinary tract infection) Code(s): N39.0 - URINARY TRACT INFECTION, SITE NOT SPECIFIED Assessment/Plan sepsis acute renal failure suspect infected leg ulcers less likley UTI diabetes penicillin allergy- has received carbapenems in the past ivf, cultures renal sonogram vancomycin 1 dose meropenem taper antibiotics in 24 hours over 40 minutes spent in the care of this ICU patient
[2019-04-24] MEDS ORDERED: MEROPENEM 500 MG VIAL (RESTRICTED TO ID) IVPB ONE (17:04)
[2019-04-24] MEDS ORDERED: DEXTROSE 5%-WATER 100 ML IVPB ONE (17:05)
[2019-04-24] MEDS: MEROPENEM 500 MG in DEXTROSE 5%-WATER 100 ML IVPB SCH (17:08)
[2019-04-24] MEDS ORDERED: ACETAMINOPHEN 1000 MG/100 ML VIAL (NON FORMULARY) IVPB ONE (17:17)
[2019-04-24] MEDS ORDERED: CHLORHEXIDINE GLUCONATE 4% CLEANSER FOR DECOLONIZATION TP SCH (22:00)
[2019-04-25] MEDS ORDERED: MEROPENEM 500 MG VIAL (RESTRICTED TO ID) IVPB ONE ×2 (03:27→17:09)
[2019-04-25] MEDS ORDERED: DEXTROSE 5%-WATER 100 ML IVPB ONE ×2 (03:27→17:09)
[2019-04-25] MEDS: MEROPENEM 500 MG in DEXTROSE 5%-WATER 100 ML IVPB SCH ×2 (03:38→17:11)
[2019-04-25] MEDS ORDERED: ACETAMINOPHEN 1000 MG/100 ML VIAL (NON FORMULARY) IVPB ONE (04:58)
[2019-04-25] MEDS: SODIUM CHLORIDE 0.45% 1,000 ML IV SCH (05:18)
[2019-04-25] MEDS: NOREPINEPHRINE BITARTRATE 4,000 MCG in DEXTROSE 5%-WATER - 496 ML IV SCH ×3 (05:39→17:06)
[2019-04-25] MEDS: HEPARIN NA (PORCINE) 5,000 UNITS/ML 1ML VIAL SQ SCH ×2 (06:23→14:57)
[2019-04-25] MEDS: INSULIN SLIDING SCALE (NOVOLOG) 1 VIAL SQ SCH ×4 (06:33→22:31)
[2019-04-25 07:37] LABS: HEMATOCRIT 30.4 % (32.4-45.2); HEMOGLOBIN 9.8 GM/dL (10.7-15.3); MCH 28.4 pg (25.7-33.7); MCHC 32.1 g/dl (32.0-36.0); MEAN CELL VOLUME 88.5 fl (80-96); PLATELET COUNT 288 K/MM3 (134-434); RBC 3.44 M/mm3 (3.60-5.2); RDW 14.7 % (11.6-15.6); WHITE BLOOD COUNT 23.2 K/mm3 (4.0-10.0)
[2019-04-25 07:46] LABS: BLOOD UREA NITROGEN 86.6 mg/dL (7-18); CALCIUM 7.3 mg/dL (8.5-10.1); MAGNESIUM 1.5 mg/dL (1.8-2.4); PHOSPHOROUS 3.8 mg/dL (2.5-4.9)
--- NOTE | 2019-04-25 08:59 | PN ---
Progress Note (short form) - Note Progress Note: Pulm/CCM Pt seen and examined in ICU 24HR; -wbc downtrending -Cr downtrending without further TRANSFER DRIVER -still low grade fever and requiring levo ~8 -awakens to loud voice and follows simple commands but remains toxic appearing -vasc surg saw, no acute plans for debridement, unchanged from outpatient appearance Vital Signs Temp 99.2 F 04/25/19 08:00 Pulse 79 04/25/19 08:00 Resp 23 H 04/25/19 08:00 BP 96/53 L 04/25/19 08:00 Pulse Ox 99 04/24/19 21:00 Intake & Output 04/24/19 04/24/19 04/25/19 11:59 23:59 11:59 Intake Total 2725 2793.5 1779 Output Total 10 575 400 Balance 2715 2218.5 1379 Weight 116.12 kg 116.1 kg Intake: IV 2575 2143.5 1779 1/2 Normal Saline 1,000 900 978 ml @ 100 mls/hr IV ASDIR [facility]ANCE Rx#:[id number] Levophed - 4,000 Mcg In 75 718.5 801 D5w - 496 ml @ 5 MCG/MIN 37.5 mls/hr IV TITR LANCE Rx#:[id number] Normal Saline - 1,000 ml 2500 525 @ 75 mls/hr IV ASDIR LANCE Rx#:[id number] IVPB 150 650 Output: Urine 10 575 400 Johnson 10 575 400 Other: Voiding Method Indwelling Catheter Indwelling Catheter Bowel Movement No No No Height 5 ft 5 in Body Mass Index (BMI) 42.7 Weight Measurement Method Built in [facility] Built in [facility] Home Medications Medication Instructions Recorded Budesonide/Formeterol Fumarate 2 puff IH BID inhaler 02/20/17 [SYMBICORT 80/4.5mcg -] Insulin Sliding Scale [Novolog 1 vial SQ ACHS units 02/20/17 Vial Sliding Scale -] Pantoprazole Sodium [Protonix -] 40 mg PO DAILY tablet.ec 07/04/17 Polyethylene Glycol 3350 [Miralax 17 gm PO DAILY bottle 07/22/18 119 gm Btl -] Apixaban [Eliquis -] 5 mg PO BID #60 tablet 11/22/18 Magnesium Oxide [Mag-Ox -] 400 mg PO BID tablet 11/22/18 Pantoprazole Sodium [Protonix -] 40 mg PO DAILY #30 tablet.ec 11/22/18 Apixaban [Eliquis -] 5 mg PO BID #60 tablet 02/25/19 Blood-Glucose Meter [Blood Glucose 1 each MC BID #1 each 02/25/19 Monitoring] Doxycycline Hyclate [Vibramycin -] 100 mg PO BID@1000,1800 #14 capsule 02/25/19 Gabapentin 300 mg PO DAILY #30 capsule 02/25/19 Insulin Glargine,Hum.rec.anlog 10 unit SQ BID #1 insuln.pen 02/25/19 [Toujeo Max Solostar] Lancets [Lancets Thin] 1 each MC BID #60 each 02/25/19 Magnesium Oxide [Mag-Ox -] 400 mg PO BID #60 tablet 02/25/19 Metoprolol Tartrate [Lopressor -] 12.5 mg PO BID #15 tablet 02/25/19 Nystatin Cream [Mycostatin Cream -] 1 applic TP BID #1 applic 02/25/19 Pen Needle, Diabetic [1St Tier 1 each MC BID #60 dis.needle 02/25/19 Unifine Pentips Plus] Active Medications Budesonide/Formoterol Fumarate (Symbicort 80/4.5mcg -) 2 puff IH BID [facility] Last Admin: 04/24/19 21:59 Dose: Not Given Heparin Sodium (Porcine) (Heparin -) 5,000 unit SQ TID [facility] Last Admin: 04/25/19 06:23 Dose: 5,000 unit Norepinephrine Bitartrate 4, (000 mcg/ Dextrose) 500 mls @ 37.5 mls/hr IV TITR [facility]; Protocol Last Titration: 04/25/19 08:56 Dose: 14 mcg/min, 105 mls/hr Sodium Chloride (1/2 Normal Saline) 1,000 mls @ 100 mls/hr IV ASDIR [facility] Last Admin: 04/25/19 05:18 Dose: 100 mls/hr Metronidazole (Flagyl 500mg Premixed Ivpb -) 500 mg in 100 mls @ 100 mls/hr IVPB Q8H-IV [facility] Last Admin: 04/25/19 01:05 Dose: 100 mls/hr Meropenem 500 mg/ Dextrose 100 mls @ 200 mls/hr IVPB Q12H [facility] Last Admin: 04/25/19 03:38 Dose: 200 mls/hr Insulin Aspart (Novolog Vial Sliding Scale -) 1 vial SQ ACHS [facility]; Protocol Last Admin: 04/25/19 06:33 Dose: Not Given Mupirocin (Bactroban Ointment (For Decolonization) -) 1 applic NS BID [facility] Stop: 04/29/19 09:59 Last Admin: 04/24/19 21:54 Dose: 1 applic Nystatin (Mycostatin Cream -) 1 applic TP BID [facility] Last Admin: 04/24/19 21:55 Dose: 1 applic Pantoprazole Sodium (Protonix -) 40 mg PO DAILY [facility] Last Admin: 04/24/19 10:21 Dose: Not Given Polyethylene Glycol (Miralax (For Daily Use) -) 17 gm PO DAILY [facility] Last Admin: 04/24/19 10:21 Dose: Not Given Microbiology 04/24/19 00:45 Urine - Urine Johnson Urine Culture - Final NO GROWTH OBTAINED 04/23/19 22:35 Blood - Peripheral Venous Blood Culture - Preliminary NO GROWTH OBTAINED AFTER 24 HOURS, INCUBATION TO CONTINUE FOR 4 DAYS. 04/23/19 22:35 Blood - Peripheral Venous Blood Culture - Preliminary NO GROWTH OBTAINED AFTER 24 HOURS, INCUBATION TO CONTINUE FOR 4 DAYS. CBCD WBC 23.2 K/mm3 (4.0-10.0) H 04/25/19 05:48 RBC 3.44 M/mm3 (3.60-5.2) L 04/25/19 05:48 Hgb 9.8 GM/dL (10.7-15.3) L 04/25/19 05:48 Hct 30.4 % (32.4-45.2) L 04/25/19 05:48 MCV 88.5 fl (80-96) 04/25/19 05:48 MCHC 32.1 g/dl (32.0-36.0) 04/25/19 05:48 RDW 14.7 % (11.6-15.6) 04/25/19 05:48 Plt Count 288 K/MM3 (134-434) 04/25/19 05:48 MPV 10.0 fl (7.5-11.1) 04/25/19 05:48 CMP Sodium 135 mmol/L (136-145) L 04/25/19 05:48 Potassium 5.0 mmol/L (3.5-5.1) 04/25/19 05:48 Chloride 105 mmol/L (98-107) 04/25/19 05:48 Carbon Dioxide 22 mmol/L (21-32) 04/25/19 05:48 Anion Gap 8 MMOL/L (8-16) 04/25/19 05:48 BUN 86.6 mg/dL (7-18) H 04/25/19 05:48 Creatinine 4.0 mg/dL (0.55-1.3) H 04/25/19 05:48 Calcium 7.3 mg/dL (8.5-10.1) L 04/25/19 05:48 Total Bilirubin 0.4 mg/dL (0.2-1) 04/24/19 06:00 AST 10 U/L (15-37) L 04/24/19 06:00 ALT 8 U/L (13-61) L 04/24/19 06:00 Alkaline Phosphatase 142 U/L (45-117) H 04/24/19 06:00 Total Protein 6.4 g/dl (6.4-8.2) 04/24/19 06:00 Albumin 2.6 g/dl (3.4-5.0) L 04/24/19 06:00 PE: HEENT: PERRL, NCAT, EOMI, PULM: scattered crackles, diminished bases CV: regular, no m/r/g appreciated ABD: obese, soft, +BS EXT: severe venous stasis, erythema, wounds bilateral carlin and multple toes, excoriation, dressed Neuro: non-focal, awakens to voice, follows simple commands A/ 53 y/o woman with CKD, DM, afib and chronic venous stasis wounds now with UTI , septic shock complicated by acute on chronic renal failure and metabolic encephalopathy\ P/ vasopressor for MAP 60-65, if doesnt downtrend further will add vasopressin HD as per renal, avoid nephrotoxins, making some urine now broad spectrum abx as per ID, vanco post HD, renal dose glycemic control surgical consult for possible debridement, recs appreciated restart kasandra douglas Pt is critically ill, on vasopressor and altered [place] ACNP [id number] 35min CCT evaluating patient and formulating plan
[2019-04-25] MEDS ORDERED: MAGNESIUM SULF 50% (8.12 MEQ/2 ML-1 GM VIAL) IVPB ONE (09:53)
--- NOTE | 2019-04-25 09:57 | PN ---
Progress Note (short form) - Note Progress Note: Renal follow up for NOVA requiring dialysis coverage for Dr. Epstein Seen and examined in the ICU awake but not talking no overnight events remains on vasopressers making urine on IVF Vital Signs Temperature 99.2 F 04/25/19 08:00 Pulse Rate 79 04/25/19 08:56 Respiratory Rate 23 H 04/25/19 08:00 Blood Pressure 87/42 L 04/25/19 08:56 O2 Sat by Pulse Oximetry (%) 100 04/25/19 08:47 Intake & Output 04/22/19 04/23/19 04/24/19 04/25/19 23:59 23:59 23:59 23:59 Intake Total 5518.5 1779 Output Total 10 585 400 Balance -10 4933.5 1379 Weight 113.398 kg 116.12 kg 116.1 kg NAD awake but not talking RRR Dec BS, no rales soft NT/ND lower legs in dressing + trace edema CBC, BMP 04/25/19 05:48 04/25/19 05:48 Current Medications Apixaban (Eliquis -) 5 mg PO BID [facility] Budesonide/Formoterol Fumarate (Symbicort 80/4.5mcg -) 2 puff IH BID [facility] Last Admin: 04/24/19 21:59 Dose: Not Given Heparin Sodium (Porcine) (Heparin -) 5,000 unit SQ TID [facility] Stop: 04/25/19 16:00 Last Admin: 04/25/19 06:23 Dose: 5,000 unit Norepinephrine Bitartrate 4, (000 mcg/ Dextrose) 500 mls @ 37.5 mls/hr IV TITR [facility]; Protocol Last Titration: 04/25/19 08:56 Dose: 14 mcg/min, 105 mls/hr Sodium Chloride (1/2 Normal Saline) 1,000 mls @ 100 mls/hr IV ASDIR [facility]ANCE Last Admin: 04/25/19 05:18 Dose: 100 mls/hr Metronidazole (Flagyl 500mg Premixed Ivpb -) 500 mg in 100 mls @ 100 mls/hr IVPB Q8H-IV [facility] Last Admin: 04/25/19 01:05 Dose: 100 mls/hr Meropenem 500 mg/ Dextrose 100 mls @ 200 mls/hr IVPB Q12H [facility] Last Admin: 04/25/19 03:38 Dose: 200 mls/hr Insulin Aspart (Novolog Vial Sliding Scale -) 1 vial SQ ACHS [facility]; Protocol Last Admin: 04/25/19 06:33 Dose: Not Given Magnesium Sulfate (Magnesium Sulfate) 1 gm IVPB ONCE ONE Stop: 04/25/19 09:54 Mupirocin (Bactroban Ointment (For Decolonization) -) 1 applic NS BID [facility] Stop: 04/29/19 09:59 Last Admin: 04/24/19 21:54 Dose: 1 applic Nystatin (Mycostatin Cream -) 1 applic TP BID [facility] Last Admin: 04/24/19 21:55 Dose: 1 applic Pantoprazole Sodium (Protonix -) 40 mg PO DAILY [facility] Last Admin: 04/24/19 10:21 Dose: Not Given Polyethylene Glycol (Miralax (For Daily Use) -) 17 gm PO DAILY [facility] Last Admin: 04/24/19 10:21 Dose: Not Given Sodium Zirconium Cyclosilicate (Lokelma) 5 gm PO DAILY [facility] Impression 1. NOVA 2. hyperkalemia 3. obesity 4. DM 5. a-fib 6. HTN 7. chronic lower extremity ulcers 8. gastritis 9. sepsis 10. hyperglycemia 11. metabolic acidosis 12. peripheral vascular disease Plan no indication for dialysis today would maintain HD catheter for additional 24 hours continue IVF and vasopressers for hemodynamic support trend renal function and electrolytes start Lokelma daily for potassium management Khoa Terry DO
[2019-04-25] MEDS: SODIUM CHLORIDE 1,000 ML IV SCH (10:21)
[2019-04-25] MEDS ORDERED: PT OWN MED DRAWER 7, Y5N ONE ×2 (10:31→10:52)
[2019-04-25] MEDS: MUPIROCIN 2% TOPICAL OINTMENT FOR DECOLONIZATION NS SCH ×2 (10:39→22:30)
[2019-04-25] MEDS: NYSTATIN 100,000 UNIT/GM TOPICAL CREAM 15 GM TUBE TP SCH ×2 (10:39→22:30)
--- NOTE | 2019-04-25 10:50 | PN ---
Progress Note (short form) - Note Progress Note: more awake ouch don't touch me flinches when touched anywhere remains on levophed cr improving low grade temps Vital Signs Period Temp Pulse Resp BP Sys/Callahan Pulse Ox Last 24 Hr 99.2 F-100.9 F 79-100 17-25 74-145/39-118 94-100 cor-rrr lungs decreased bs at bases abd soft ext dressings intact ulcers unchanged +drainage CBC, BMP 04/25/19 05:48 04/25/19 05:48 Laboratory Tests 04/25/19 05:48 Random Vancomycin 20.2 Microbiology 04/24/19 00:45 Urine - Urine Johnson Urine Culture - Final NO GROWTH OBTAINED 04/23/19 22:35 Blood - Peripheral Venous Blood Culture - Preliminary NO GROWTH OBTAINED AFTER 24 HOURS, INCUBATION TO CONTINUE FOR 4 DAYS. 04/23/19 22:35 Blood - Peripheral Venous Blood Culture - Preliminary NO GROWTH OBTAINED AFTER 24 HOURS, INCUBATION TO CONTINUE FOR 4 DAYS. Current Medications Apixaban (Eliquis -) 5 mg PO BID [facility] Budesonide/Formoterol Fumarate (Symbicort 80/4.5mcg -) 2 puff IH BID [facility] Last Admin: 04/24/19 21:59 Dose: Not Given Heparin Sodium (Porcine) (Heparin -) 5,000 unit SQ TID [facility] Stop: 04/25/19 16:00 Last Admin: 04/25/19 06:23 Dose: 5,000 unit Norepinephrine Bitartrate 4, (000 mcg/ Dextrose) 500 mls @ 37.5 mls/hr IV TITR [facility]; Protocol Last Titration: 04/25/19 10:44 Dose: 13 mcg/min, 97.5 mls/hr Metronidazole (Flagyl 500mg Premixed Ivpb -) 500 mg in 100 mls @ 100 mls/hr IVPB Q8H-IV [facility] Last Admin: 04/25/19 10:38 Dose: 100 mls/hr Meropenem 500 mg/ Dextrose 100 mls @ 200 mls/hr IVPB Q12H [facility] Last Admin: 04/25/19 03:38 Dose: 200 mls/hr Sodium Chloride (Normal Saline -) 1,000 mls @ 83 mls/hr IV ASDIR [facility] Last Admin: 04/25/19 10:21 Dose: 83 mls/hr Insulin Aspart (Novolog Vial Sliding Scale -) 1 vial SQ ACHS [facility]; Protocol Last Admin: 04/25/19 06:33 Dose: Not Given Mupirocin (Bactroban Ointment (For Decolonization) -) 1 applic NS BID [facility] Stop: 04/29/19 09:59 Last Admin: 04/25/19 10:39 Dose: 1 applic Nystatin (Mycostatin Cream -) 1 applic TP BID [facility] Last Admin: 04/25/19 10:39 Dose: 1 applic Pantoprazole Sodium (Protonix -) 40 mg PO DAILY [facility] Last Admin: 04/24/19 10:21 Dose: Not Given Polyethylene Glycol (Miralax (For Daily Use) -) 17 gm PO DAILY [facility] Last Admin: 04/24/19 10:21 Dose: Not Given Sodium Zirconium Cyclosilicate (Lokelma) 5 gm PO DAILY [facility] a/p sepsis continued low graded temps and hypotension requiring levophed unreliable exam consider ct scan abd/pelvis no contrast if she remains hypotensive repeat vancomycin level in am continue meropenem d/c flagyl acute renal failure improving diabetes chronic leg ulcers-prior leg wounds mrsa and gnr penicillin allergy -details not known contact isolation overall prognosis is guarded over 35 min spent in the care of this critically ill ICU patient d/w forms builder Problem List - Problems (1) Sepsis Code(s): A41.9 - SEPSIS, UNSPECIFIED ORGANISM (2) ARF (acute renal failure) Code(s): N17.9 - ACUTE KIDNEY FAILURE, UNSPECIFIED (3) Bilateral leg ulcer Code(s): L97.919 - NON-PRS CHRONIC ULC UNSP PRT OF R LOW LEG W UNSP SEVERITY; L97.929 - NON-PRS CHRONIC ULC UNSP PRT OF L LOW LEG W UNSP SEVERITY Qualifiers: Non-pressure ulcer stage: limited to breakdown of skin Qualified Code(s): L97.911 - Non-pressure chronic ulcer of unspecified part of right lower leg limited to breakdown of skin; L97.921 - Non-pressure chronic ulcer of unspecified part of left lower leg limited to breakdown of skin (4) DM2 (diabetes mellitus, type 2) Code(s): E11.9 - TYPE 2 DIABETES MELLITUS WITHOUT COMPLICATIONS Qualifiers: Diabetes mellitus predatory animal exterminator insulin use: with predatory animal exterminator use Diabetes mellitus complication detail: with other circulatory complications (5) Infected pressure ulcer Code(s): L89.90 - PRESSURE ULCER OF UNSPECIFIED SITE, UNSPECIFIED STAGE; L08.9 - LOCAL INFECTION OF THE SKIN AND SUBCUTANEOUS TISSUE, UNSP (6) UTI (urinary tract infection) Code(s): N39.0 - URINARY TRACT INFECTION, SITE NOT SPECIFIED
[2019-04-25] MEDS ORDERED: LACTATED RINGERS SOLUTION 1000 ML INFUS.BAG IV ONE (11:00)
--- NOTE | 2019-04-25 11:20 | PN ---
Progress Note, Physician - Current Medication List Current Medications: Active Medications Apixaban (Eliquis -) 5 mg PO BID [facility] Budesonide/Formoterol Fumarate (Symbicort 80/4.5mcg -) 2 puff IH BID [facility] Last Admin: 04/24/19 21:59 Dose: Not Given Heparin Sodium (Porcine) (Heparin -) 5,000 unit SQ TID [facility] Stop: 04/25/19 16:00 Last Admin: 04/25/19 06:23 Dose: 5,000 unit Norepinephrine Bitartrate 4, (000 mcg/ Dextrose) 500 mls @ 37.5 mls/hr IV TITR [facility]; Protocol Last Admin: 04/25/19 10:55 Dose: 12 mcg/min, 90 mls/hr Metronidazole (Flagyl 500mg Premixed Ivpb -) 500 mg in 100 mls @ 100 mls/hr IVPB Q8H-IV [facility] Last Admin: 04/25/19 10:38 Dose: 100 mls/hr Meropenem 500 mg/ Dextrose 100 mls @ 200 mls/hr IVPB Q12H [facility] Last Admin: 04/25/19 03:38 Dose: 200 mls/hr Sodium Chloride (Normal Saline -) 1,000 mls @ 83 mls/hr IV ASDIR [facility] Last Admin: 04/25/19 10:21 Dose: 83 mls/hr Insulin Aspart (Novolog Vial Sliding Scale -) 1 vial SQ ACHS [facility]; Protocol Last Admin: 04/25/19 06:33 Dose: Not Given Mupirocin (Bactroban Ointment (For Decolonization) -) 1 applic NS BID [facility] Stop: 04/29/19 09:59 Last Admin: 04/25/19 10:39 Dose: 1 applic Nystatin (Mycostatin Cream -) 1 applic TP BID [facility] Last Admin: 04/25/19 10:39 Dose: 1 applic Pantoprazole Sodium (Protonix -) 40 mg PO DAILY [facility] Last Admin: 04/24/19 10:21 Dose: Not Given Polyethylene Glycol (Miralax (For Daily Use) -) 17 gm PO DAILY [facility] Last Admin: 04/24/19 10:21 Dose: Not Given Sodium Zirconium Cyclosilicate (Lokelma) 5 gm PO DAILY [facility] - Objective Vital Signs: Vital Signs Temperature 99.2 F 04/25/19 08:00 Pulse Rate 82 04/25/19 10:55 Respiratory Rate 23 H 04/25/19 08:00 Blood Pressure 105/53 L 04/25/19 10:55 O2 Sat by Pulse Oximetry (%) 100 04/25/19 08:47 Cardiovascular: Yes: S1, S2 Respiratory: Yes: On Nasal O2, Rhonchi Gastrointestinal: Yes: Normal Bowel Sounds, Soft Neurological: Yes: Alert, Oriented, Weakness Labs: CBC, BMP 04/25/19 05:48 04/25/19 05:48 Assessment/Plan - Problems (1) NOVA (acute kidney injury) Assessment/Plan: emergent hD done now labs much improved potassium also improved as well bicarbonate level better Code(s): N17.9 - ACUTE KIDNEY FAILURE, UNSPECIFIED (2) Sepsis Assessment/Plan: secondary to LE wounds IV abx ID Eval presors keep MAP > 55 leukocytosis trending down icu monitoring lactic acidosis now improved Code(s): A41.9 - SEPSIS, UNSPECIFIED ORGANISM (3) DM2 (diabetes mellitus, type 2) Assessment/Plan: sliding scale bgm monitoring hga1c noted Code(s): E11.9 - TYPE 2 DIABETES MELLITUS WITHOUT COMPLICATIONS Qualifiers: Diabetes mellitus skilled nursing insulin use: with termite control technician use Diabetes mellitus complication detail: with other circulatory complications
[2019-04-25] MEDS: PANTOPRAZOLE 40 MG TABLET PO SCH (11:39)
[2019-04-25] MEDS: SODIUM ZIRCONIUM CYCLOSILICATE (LOKELMA) 5 GM PACKET PO SCH (11:39)
[2019-04-25] MEDS: POLYETHYLENE GLYCOL 3350 119 GM BTL PO SCH (11:40)
[2019-04-25] MEDS: BUDESONIDE/FORMETEROL FUMARATE 80/4.5 mcg INHALER IH SCH ×2 (11:41→22:31)
[2019-04-25] MEDS: MORPHINE SULFATE 2 MG/ML VIAL IVPUSH PRN (16:10)
[2019-04-25] MEDS: APIXABAN 5 MG TABLET PO SCH (22:31)
[2019-04-26] MEDS ORDERED: MEROPENEM 500 MG VIAL (RESTRICTED TO ID) IVPB ONE ×3 (03:45→18:25)
[2019-04-26] MEDS ORDERED: DEXTROSE 5%-WATER 100 ML IVPB ONE ×3 (03:46→18:25)
[2019-04-26] MEDS: MEROPENEM 500 MG in DEXTROSE 5%-WATER 100 ML IVPB SCH ×3 (04:05→18:28)
[2019-04-26] MEDS: NOREPINEPHRINE BITARTRATE 4,000 MCG in DEXTROSE 5%-WATER - 496 ML IV SCH (04:06)
[2019-04-26 07:16] LABS: HEMATOCRIT 30.1 % (32.4-45.2); HEMOGLOBIN 9.8 GM/dL (10.7-15.3); MCH 28.8 pg (25.7-33.7); MCHC 32.5 g/dl (32.0-36.0); MEAN CELL VOLUME 88.5 fl (80-96); MEAN PLT VOLUME 9.7 fl (7.5-11.1); PLATELET COUNT 250 K/MM3 (134-434); RDW 14.6 % (11.6-15.6); WHITE BLOOD COUNT 13.9 K/mm3 (4.0-10.0)
[2019-04-26] MEDS: INSULIN SLIDING SCALE (NOVOLOG) 1 VIAL SQ SCH ×4 (07:25→22:09)
[2019-04-26 07:30] LABS: ALBUMIN 2.1 g/dl (3.4-5.0); BILIRUBIN,TOTAL 0.4 mg/dL (0.2-1); BLOOD UREA NITROGEN 61.9 mg/dL (7-18); CALCIUM 8.6 mg/dL (8.5-10.1); CREATININE 1.8 mg/dL (0.55-1.3); MAGNESIUM 1.6 mg/dL (1.8-2.4); PHOSPHOROUS 3.4 mg/dL (2.5-4.9); TOT PROT 5.7 g/dl (6.4-8.2)
--- NOTE | 2019-04-26 07:45 | PN ---
Progress Note (short form) - Note Progress Note: Pulm/CCM Pt seen and examined in ICU 24HR; -wbc and pressors cont to downtrend nicely -good UOP, possible post ATN diuresis -afebrile Vital Signs Temp 98.4 F 04/25/19 18:00 Pulse 72 04/26/19 07:24 Resp 23 H 04/26/19 04:00 BP 131/64 04/26/19 07:24 Pulse Ox 100 04/25/19 21:00 Intake & Output 04/25/19 04/25/19 04/26/19 11:59 23:59 11:59 Intake Total 1779 2807 Output Total 400 1340 Balance 1379 1467 Weight 116.1 kg Intake: IV 1779 2407 1/2 Normal Saline 1,000 978 200 ml @ 100 mls/hr IV ASDIR [facility] Rx#:[id number] Levophed - 4,000 Mcg In 801 1126 D5w - 496 ml @ 5 MCG/MIN 37.5 mls/hr IV TITR [facility] Rx#:[id number] Normal Saline - 1,000 ml 581 @ 83 mls/hr IV ASDIR [facility] Rx#:[id number] SL1 500 IVPB 400 Output: Urine 400 1340 Johnson 400 1340 Other: Voiding Method Indwelling Catheter Indwelling Catheter Bowel Movement No No Weight Measurement Method Built in Bedscale CBC, BMP 04/26/19 05:30 04/26/19 05:30 Home Medications Medication Instructions Recorded Budesonide/Formeterol Fumarate 2 puff IH BID inhaler 02/20/17 [SYMBICORT 80/4.5mcg -] Insulin Sliding Scale [Novolog 1 vial SQ ACHS units 02/20/17 Vial Sliding Scale -] Pantoprazole Sodium [Protonix -] 40 mg PO DAILY tablet.ec 07/04/17 Polyethylene Glycol 3350 [Miralax 17 gm PO DAILY bottle 07/22/18 119 gm Btl -] Apixaban [Eliquis -] 5 mg PO BID #60 tablet 11/22/18 Magnesium Oxide [Mag-Ox -] 400 mg PO BID tablet 11/22/18 Pantoprazole Sodium [Protonix -] 40 mg PO DAILY #30 tablet.ec 11/22/18 Apixaban [Eliquis -] 5 mg PO BID #60 tablet 02/25/19 Blood-Glucose Meter [Blood Glucose 1 each MC BID #1 each 02/25/19 Monitoring] Doxycycline Hyclate [Vibramycin -] 100 mg PO BID@1000,1800 #14 capsule 02/25/19 Gabapentin 300 mg PO DAILY #30 capsule 02/25/19 Insulin Glargine,Hum.rec.anlog 10 unit SQ BID #1 insuln.pen 02/25/19 [Toujuan Styles Solostar] Lancets [Lancets Thin] 1 each MC BID #60 each 02/25/19 Magnesium Oxide [Mag-Ox -] 400 mg PO BID #60 tablet 02/25/19 Metoprolol Tartrate [Lopressor -] 12.5 mg PO BID #15 tablet 02/25/19 Nystatin Cream [Mycostatin Cream -] 1 applic TP BID #1 applic 02/25/19 Pen Needle, Diabetic [1St Tier 1 each MC BID #60 dis.needle 02/25/19 Unifine Pentips Plus] Active Medications Apixaban (Eliquis -) 5 mg PO BID [facility] Last Admin: 04/25/19 22:31 Dose: 5 mg Budesonide/Formoterol Fumarate (Symbicort 80/4.5mcg -) 2 puff IH BID [facility] Last Admin: 04/25/19 22:31 Dose: 2 puff Norepinephrine Bitartrate 4, (000 mcg/ Dextrose) 500 mls @ 37.5 mls/hr IV TITR [facility]; Protocol Last Titration: 04/26/19 07:24 Dose: 5 mcg/min, 37.5 mls/hr Meropenem 500 mg/ Dextrose 100 mls @ 200 mls/hr IVPB Q12H [facility] Last Admin: 04/26/19 04:05 Dose: 200 mls/hr Sodium Chloride (Normal Saline -) 1,000 mls @ 83 mls/hr IV ASDIR [facility] Last Admin: 04/25/19 10:21 Dose: 83 mls/hr Insulin Aspart (Novolog Vial Sliding Scale -) 1 vial SQ ACHS [facility]; Protocol Last Admin: 04/26/19 07:25 Dose: Not Given Morphine Sulfate (Morphine Sulfate) 2 mg IVPUSH Q3H PRN PRN Reason: PAIN LEVEL 1-5 Last Admin: 04/25/19 16:10 Dose: 2 mg Mupirocin (Bactroban Ointment (For Decolonization) -) 1 applic NS BID [facility] Stop: 04/29/19 09:59 Last Admin: 04/25/19 22:30 Dose: 1 applic Nystatin (Mycostatin Cream -) 1 applic TP BID [facility] Last Admin: 04/25/19 22:30 Dose: 1 applic Pantoprazole Sodium (Protonix -) 40 mg PO DAILY [facility] Last Admin: 04/25/19 11:39 Dose: 40 mg Polyethylene Glycol (Miralax (For Daily Use) -) 17 gm PO DAILY [facility] Last Admin: 04/25/19 11:40 Dose: 17 gm Sodium Zirconium Cyclosilicate (Lokelma) 5 gm PO DAILY [facility] Last Admin: 04/25/19 11:39 Dose: 5 gm Microbiology 04/24/19 00:45 Urine - Urine Johnson Urine Culture - Final NO GROWTH OBTAINED 04/23/19 22:35 Blood - Peripheral Venous Blood Culture - Preliminary NO GROWTH OBTAINED AFTER 24 HOURS, INCUBATION TO CONTINUE FOR 4 DAYS. 04/23/19 22:35 Blood - Peripheral Venous Blood Culture - Preliminary NO GROWTH OBTAINED AFTER 24 HOURS, INCUBATION TO CONTINUE FOR 4 DAYS. Microbiology 04/23/19 22:35 Blood - Peripheral Venous Blood Culture - Preliminary NO GROWTH OBTAINED AFTER 48 HOURS, INCUBATION TO CONTINUE FOR 3 DAYS. 04/23/19 22:35 Blood - Peripheral Venous Blood Culture - Preliminary NO GROWTH OBTAINED AFTER 48 HOURS, INCUBATION TO CONTINUE FOR 3 DAYS. 04/24/19 12:20 Leg - Right Lower Gram Stain - Final 04/24/19 00:45 Urine - Urine Johnson Urine Culture - Final NO GROWTH OBTAINED PE: HEENT: PERRL, NCAT, EOMI, PULM: scattered crackles, diminished bases CV: regular, no m/r/g appreciated ABD: obese, soft, +BS EXT: severe venous stasis, erythema, wounds bilateral carlin and multple toes, excoriation, dressed Neuro: non-focal, awakens to voice, follows simple commands A/ 53 y/o woman with CKD, DM, Pafib and chronic venous stasis wounds now with UTI, septic shock complicated by acute on chronic renal failure and metabolic encephalopathy now improving on broad spectrum abx, required 1 run of HD P/ vasopressor for MAP 60-65, down trending nicely HD as per renal, avoid nephrotoxins, making good urine broad spectrum abx as per ID, vanco post HD, renal dose glycemic control surgical consult for possible debridement, recs appreciated restarted kasandra Pt is critically ill, remains on vasopressors. OK for floor once off Kirti ACNP [id number] 35min CCT evaluating patient and formulating plan
--- NOTE | 2019-04-26 08:53 | PN ---
Progress Note (short form) - Note Progress Note: markedly improved wants to eat no abdominal pain leg pain only Vital Signs Period Temp Pulse Resp BP Sys/Callahan Pulse Ox Last 24 Hr 98.1 F-99.0 F 72-91 15-254 82-140/39-74 100 cor-rrr lungs clear abd soft,nt ext punched out lesions both legs, no drainage, no purulence, no odor cuevas CBC, BMP 04/26/19 05:30 04/26/19 05:30 Microbiology 04/23/19 22:35 Blood - Peripheral Venous Blood Culture - Preliminary NO GROWTH OBTAINED AFTER 48 HOURS, INCUBATION TO CONTINUE FOR 3 DAYS. 04/23/19 22:35 Blood - Peripheral Venous Blood Culture - Preliminary NO GROWTH OBTAINED AFTER 48 HOURS, INCUBATION TO CONTINUE FOR 3 DAYS. 04/24/19 12:20 Leg - Right Lower Gram Stain - Final 04/24/19 00:45 Urine - Urine Cuevas Urine Culture - Final NO GROWTH OBTAINED Current Medications Apixaban (Eliquis -) 5 mg PO BID [facility] Last Admin: 04/25/19 22:31 Dose: 5 mg Budesonide/Formoterol Fumarate (Symbicort 80/4.5mcg -) 2 puff IH BID [facility] Last Admin: 04/25/19 22:31 Dose: 2 puff Norepinephrine Bitartrate 4, (000 mcg/ Dextrose) 500 mls @ 37.5 mls/hr IV TITR [facility]; Protocol Last Titration: 04/26/19 08:10 Dose: 3 mcg/min, 22.5 mls/hr Meropenem 500 mg/ Dextrose 100 mls @ 200 mls/hr IVPB Q12H [facility] Last Admin: 04/26/19 04:05 Dose: 200 mls/hr Sodium Chloride (Normal Saline -) 1,000 mls @ 83 mls/hr IV ASDIR [facility] Last Admin: 04/25/19 10:21 Dose: 83 mls/hr Insulin Aspart (Novolog Vial Sliding Scale -) 1 vial SQ ACHS [facility]; Protocol Last Admin: 04/26/19 07:25 Dose: Not Given Morphine Sulfate (Morphine Sulfate) 2 mg IVPUSH Q3H PRN PRN Reason: PAIN LEVEL 1-5 Last Admin: 04/25/19 16:10 Dose: 2 mg Mupirocin (Bactroban Ointment (For Decolonization) -) 1 applic NS BID [facility] Stop: 04/29/19 09:59 Last Admin: 04/25/19 22:30 Dose: 1 applic Nystatin (Mycostatin Cream -) 1 applic TP BID [facility] Last Admin: 04/25/19 22:30 Dose: 1 applic Pantoprazole Sodium (Protonix -) 40 mg PO DAILY [facility] Last Admin: 04/25/19 11:39 Dose: 40 mg Polyethylene Glycol (Miralax (For Daily Use) -) 17 gm PO DAILY [facility] Last Admin: 04/25/19 11:40 Dose: 17 gm Sodium Zirconium Cyclosilicate (Lokelma) 5 gm PO DAILY [facility] Last Admin: 04/25/19 11:39 Dose: 5 gm a/p sepsis-levophed being tapered suspected source is leg ulcers- denies any kind of wound care f/u as outpt now legs are clean no drainage or odor acute renal failure improving diabetes chronic leg ulcers-prior leg wounds mrsa and gnr penicillin allergy -reports mouth swelling contact isolation continue meropenem redose vancomycin xeroform to legs for now should be seen by wound care in am for dressing instructions Problem List - Problems (1) Sepsis Code(s): A41.9 - SEPSIS, UNSPECIFIED ORGANISM (2) ARF (acute renal failure) Code(s): N17.9 - ACUTE KIDNEY FAILURE, UNSPECIFIED (3) Bilateral leg ulcer Code(s): L97.919 - NON-PRS CHRONIC ULC UNSP PRT OF R LOW LEG W UNSP SEVERITY; L97.929 - NON-PRS CHRONIC ULC UNSP PRT OF L LOW LEG W UNSP SEVERITY Qualifiers: Non-pressure ulcer stage: limited to breakdown of skin Qualified Code(s): L97.911 - Non-pressure chronic ulcer of unspecified part of right lower leg limited to breakdown of skin; L97.921 - Non-pressure chronic ulcer of unspecified part of left lower leg limited to breakdown of skin (4) DM2 (diabetes mellitus, type 2) Code(s): E11.9 - TYPE 2 DIABETES MELLITUS WITHOUT COMPLICATIONS Qualifiers: Diabetes mellitus mcfp insulin use: with terminal computer operator use Diabetes mellitus complication detail: with other circulatory complications (5) Infected pressure ulcer Code(s): L89.90 - PRESSURE ULCER OF UNSPECIFIED SITE, UNSPECIFIED STAGE; L08.9 - LOCAL INFECTION OF THE SKIN AND SUBCUTANEOUS TISSUE, UNSP (6) UTI (urinary tract infection) Code(s): N39.0 - URINARY TRACT INFECTION, SITE NOT SPECIFIED
[2019-04-26] MEDS ORDERED: VANCOMYCIN 1 GM in D5W (PRE-DOCKED) 1,000 MG/250 ML IVPB ONE (09:15)
--- NOTE | 2019-04-26 09:39 | PN ---
Progress Note (short form) - Note Progress Note: Renal follow up for NOVA requiring dialysis coverage for Dr. Epstein Seen and examined in the ICU awake and alert complains of pains in her legs no sob, cp, fever, chills, N/V/D making urine Vital Signs Temperature 98.2 F 04/26/19 08:00 Pulse Rate 74 04/26/19 08:10 Respiratory Rate 22 H 04/26/19 08:00 Blood Pressure 123/57 L 04/26/19 08:10 O2 Sat by Pulse Oximetry (%) 100 04/26/19 08:56 Intake & Output 04/23/19 04/24/19 04/25/19 04/26/19 23:59 23:59 23:59 23:59 Intake Total 5518.5 4586 Output Total 10 585 1740 Balance -10 4933.5 2846 Weight 113.398 kg 116.12 kg 116.1 kg 116.483 kg NAD awake but not talking RRR Dec BS, no rales soft NT/ND lower legs in dressing + trace edema, + wound on bilateral LE CBC, BMP 04/26/19 05:30 04/26/19 05:30 Current Medications Apixaban (Eliquis -) 5 mg PO BID [facility] Last Admin: 04/25/19 22:31 Dose: 5 mg Budesonide/Formoterol Fumarate (Symbicort 80/4.5mcg -) 2 puff IH BID [facility] Last Admin: 04/25/19 22:31 Dose: 2 puff Norepinephrine Bitartrate 4, (000 mcg/ Dextrose) 500 mls @ 37.5 mls/hr IV TITR [facility]; Protocol Last Titration: 04/26/19 08:10 Dose: 3 mcg/min, 22.5 mls/hr Sodium Chloride (Normal Saline -) 1,000 mls @ 83 mls/hr IV ASDIR [facility] Last Admin: 04/25/19 10:21 Dose: 83 mls/hr Meropenem 500 mg/ Dextrose 100 mls @ 200 mls/hr IVPB Q8H-IV [facility] Insulin Aspart (Novolog Vial Sliding Scale -) 1 vial SQ ACHS [facility]; Protocol Last Admin: 04/26/19 07:25 Dose: Not Given Morphine Sulfate (Morphine Sulfate) 2 mg IVPUSH Q3H PRN PRN Reason: PAIN LEVEL 1-5 Last Admin: 04/25/19 16:10 Dose: 2 mg Mupirocin (Bactroban Ointment (For Decolonization) -) 1 applic NS BID [facility] Stop: 04/29/19 09:59 Last Admin: 04/25/19 22:30 Dose: 1 applic Nystatin (Mycostatin Cream -) 1 applic TP BID [facility] Last Admin: 04/25/19 22:30 Dose: 1 applic Pantoprazole Sodium (Protonix -) 40 mg PO DAILY [facility] Last Admin: 04/25/19 11:39 Dose: 40 mg Polyethylene Glycol (Miralax (For Daily Use) -) 17 gm PO DAILY [facility] Last Admin: 04/25/19 11:40 Dose: 17 gm Sodium Zirconium Cyclosilicate (Lokelma) 5 gm PO DAILY [facility] Last Admin: 04/25/19 11:39 Dose: 5 gm Impression 1. NOVA 2. hyperkalemia 3. obesity 4. DM 5. a-fib 6. HTN 7. chronic lower extremity ulcers 8. gastritis 9. sepsis 10. hyperglycemia 11. metabolic acidosis 12. peripheral vascular disease Plan Renal function is improving, no indication for further dialysis can remove dialysis catheter today continue IVF and vasopressers for hemodynamic support trend renal function and electrolytes start Lokelma daily for potassium management continue antibiotics as per BENTLEY Terry DO
[2019-04-26] MEDS ORDERED: diphenhydrAMINE HCL 25 MG CAPSULE (FP) PO ONE (09:54)
[2019-04-26] MEDS ORDERED: PT OWN MED DRAWER 7, Y5N ONE ×2 (09:57→16:55)
[2019-04-26] MEDS: SODIUM ZIRCONIUM CYCLOSILICATE (LOKELMA) 5 GM PACKET PO SCH (10:15)
[2019-04-26] MEDS: PANTOPRAZOLE 40 MG TABLET PO SCH (10:15)
[2019-04-26] MEDS: APIXABAN 5 MG TABLET PO SCH ×2 (10:15→21:57)
[2019-04-26] MEDS: POLYETHYLENE GLYCOL 3350 119 GM BTL PO SCH (10:16)
[2019-04-26] MEDS: NYSTATIN 100,000 UNIT/GM TOPICAL CREAM 15 GM TUBE TP SCH ×2 (10:17→21:57)
[2019-04-26] MEDS: MUPIROCIN 2% TOPICAL OINTMENT FOR DECOLONIZATION NS SCH ×2 (10:17→21:57)
[2019-04-26] MEDS: BUDESONIDE/FORMETEROL FUMARATE 80/4.5 mcg INHALER IH SCH ×2 (10:18→21:58)
--- NOTE | 2019-04-26 10:27 | CON.CARD ---
Consult Consult Specialty:: Cardiology Referred by:: Alissa Reason for Consultation:: afib, sepsis - History of Present Illness Chief Complaint: found on floor History of Present Illness: 53 year old female with a PMH of chronic AFIB on Eliquis, HTN, DM HLD, CKD, and chronic bilateral leg ulcers. she was recently admitted with sepsis requiring pressors and rapid afib, NOVA requiring HD. Now admitted after being found on the floor,found lactic acidosis, sepsis with shock, GNR bacteremia. Echocardiogram 10/2018 normal EF no valvular disease PASP moderately elevated. - History Source History Provided By: Patient, Medical Record - Past Medical History Cardio/Vascular: Yes: AFIB, HTN Pulmonary: Yes: Asthma Gastrointestinal: Yes: Other (gallstones) Hepatobiliary: Yes: Cholelithiasis (passed without surgery), Other (fatty liver) Renal/: Yes: Renal Inusuff ...: No Infectious Disease: Yes: Other (LE cellulitis) Psych: Yes: Bipolar Endocrine: Yes: Diabetes Mellitus Dermatology: Yes: Cellulitis (b/l LE with ulcerations) Additional Medical History: obesity - Alcohol/Substance Use Hx Alcohol Use: No History of Substance Use: reports: Prescription (narcotics) - Smoking History Smoking history: Former smoker Have you smoked in the past 12 months: No Aproximately how many cigarettes per day: 0 If you are a former smoker, when did you quit?: quit age 13 - Social History Usual Living Arrangement: With Spouse ADL: Independent 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 History of Recent Travel: No Home Medications - Allergies Allergies/Adverse Reactions: Allergies Allergy/AdvReac Type Severity Reaction Status Date / Time nut - unspecified Allergy Verified 04/24/19 00:40 Penicillins Allergy Verified 04/24/19 00:40 walnut Allergy Verified 04/24/19 00:40 caviar Allergy Uncoded 04/24/19 00:40 - Home Medications Home Medications: Ambulatory Orders Budesonide/Formeterol Fumarate [SYMBICORT 80/4.5mcg -] 2 puff IH BID inhaler Insulin Sliding Scale [Novolog Vial Sliding Scale -] 1 vial SQ ACHS units 02/20 Pantoprazole Sodium [Protonix -] 40 mg PO DAILY tablet.ec 07/04/17 Polyethylene Glycol 3350 [Miralax 119 gm Btl -] 17 gm PO DAILY bottle 07/22/18 Apixaban [Eliquis -] 5 mg PO BID #60 tablet 11/22/18 Magnesium Oxide [Mag-Ox -] 400 mg PO BID tablet 11/22/18 Pantoprazole Sodium [Protonix -] 40 mg PO DAILY #30 tablet.ec 11/22/18 Apixaban [Eliquis -] 5 mg PO BID #60 tablet 02/25/19 Blood-Glucose Meter [Blood Glucose Monitoring] 1 each MC BID #1 each 02/25/19 Doxycycline Hyclate [Vibramycin -] 100 mg PO BID@1000,1800 #14 capsule 02/25/19 Gabapentin 300 mg PO DAILY #30 capsule 02/25/19 Insulin Glargine,Hum.rec.anlog [Toujuan Styles Solostar] 10 unit SQ BID #1 insuln.pen 02/25/19 Lancets [Lancets Thin] 1 each MC BID #60 each 02/25/19 Magnesium Oxide [Mag-Ox -] 400 mg PO BID #60 tablet 02/25/19 Metoprolol Tartrate [Lopressor -] 12.5 mg PO BID #15 tablet 02/25/19 Nystatin Cream [Mycostatin Cream -] 1 applic TP BID #1 applic 02/25/19 Pen Needle, Diabetic [1St Tier Unifine Pentips Plus] 1 each MC BID #60 dis.needle 02/25/19 Vital Signs: Vital Signs Temperature 98.2 F 04/26/19 08:00 Pulse Rate 83 04/26/19 09:00 Respiratory Rate 22 H 04/26/19 08:00 Blood Pressure 125/57 L 04/26/19 09:00 O2 Sat by Pulse Oximetry (%) 100 04/26/19 08:56 Constitutional: Yes: No Distress, Calm Eyes: Yes: Conjunctiva Clear, EOM Intact HENT: Yes: Atraumatic, Normocephalic Neck: Yes: Trachea Midline Respiratory: Yes: CTA Bilaterally Gastrointestinal: Yes: Normal Bowel Sounds, Soft Cardiovascular: Yes: Regular Rate and Rhythm JVD: No Carotid Bruit: No PMI: Non-Displaced Heart Sounds: Yes: S1, S2 Musculoskeletal: Yes: WNL Extremities: Yes: Erythema Edema: Yes Edema: LLE: 2+, RLE: 2+ Peripheral Pulses WNL: No Peripheral Pulses: 1+ Left Doralis Pedis, 1+ Right Dorsalis Pedis Neurological: Yes: WNL - Other Data Labs, Other Data: CBC, BMP 04/26/19 05:30 04/26/19 05:30 Imaging - Results Chest X-ray: Report Reviewed X-ray: Report Reviewed EKG: Report Reviewed (stach nssttw changes.) Assessment/Plan 53 year old female with a PMH of chronic AFIB on Eliquis, HTN, DM HLD, CKD, and chronic bilateral leg ulcers. she was recently admitted with sepsis requiring pressors and rapid afib, NOVA requiring HD. Now admitted after being found on the floor,found lactic acidosis, sepsis with shock, GNR bacteremia. Echocardiogram 10/2018 normal EF no valvular disease PASP moderately elevated. PAF -she is in nsr at present, continue NOAC -sinus tach on tele due to sepsis. no need for cardiac workup at present Bacteremia -GNR is not an indication for CATRACHITA -Abx and pressors as needed per ICU. -NAVIGATING OFFICER per renal.
[2019-04-26] MEDS: SODIUM CHLORIDE 1,000 ML IV SCH ×2 (10:32→18:30)
[2019-04-26] MEDS ORDERED: HYDROmorphone HCl 2 MG/ML VIAL IVPUSH STA (11:23)
--- NOTE | 2019-04-26 11:28 | PN ---
Progress Note, Physician - Current Medication List Current Medications: Active Medications Apixaban (Eliquis -) 5 mg PO BID [facility] Last Admin: 04/26/19 10:15 Dose: 5 mg Budesonide/Formoterol Fumarate (Symbicort 80/4.5mcg -) 2 puff IH BID [facility] Last Admin: 04/26/19 10:18 Dose: 2 puff Hydromorphone HCl (Dilaudid Injection -) 2 mg IVPUSH ONCE STA Stop: 04/26/19 11:24 Norepinephrine Bitartrate 4, (000 mcg/ Dextrose) 500 mls @ 37.5 mls/hr IV TITR [facility]; Protocol Last Titration: 04/26/19 09:00 Dose: 0 mcg/min, 0 mls/hr Sodium Chloride (Normal Saline -) 1,000 mls @ 83 mls/hr IV ASDIR [facility] Last Admin: 04/26/19 10:32 Dose: Not Given Meropenem 500 mg/ Dextrose 100 mls @ 200 mls/hr IVPB Q8H-IV [facility] Last Admin: 04/26/19 10:19 Dose: 200 mls/hr Insulin Aspart (Novolog Vial Sliding Scale -) 1 vial SQ ACHS [facility]; Protocol Last Admin: 04/26/19 07:25 Dose: Not Given Morphine Sulfate (Morphine Sulfate) 2 mg IVPUSH Q3H PRN PRN Reason: PAIN LEVEL 1-5 Last Admin: 04/25/19 16:10 Dose: 2 mg Mupirocin (Bactroban Ointment (For Decolonization) -) 1 applic NS BID [facility] Stop: 04/29/19 09:59 Last Admin: 04/26/19 10:17 Dose: 1 applic Nystatin (Mycostatin Cream -) 1 applic TP BID [facility] Last Admin: 04/26/19 10:17 Dose: 1 applic Pantoprazole Sodium (Protonix -) 40 mg PO DAILY [facility] Last Admin: 04/26/19 10:15 Dose: 40 mg Polyethylene Glycol (Miralax (For Daily Use) -) 17 gm PO DAILY [facility] Last Admin: 04/26/19 10:16 Dose: 17 gm Sodium Zirconium Cyclosilicate (Lokelma) 5 gm PO DAILY [facility] Last Admin: 04/26/19 10:15 Dose: 5 gm - Objective Vital Signs: Vital Signs Temperature 98.2 F 04/26/19 08:00 Pulse Rate 83 04/26/19 09:00 Respiratory Rate 22 H 04/26/19 08:00 Blood Pressure 125/57 L 04/26/19 09:00 O2 Sat by Pulse Oximetry (%) 100 04/26/19 08:56 Cardiovascular: Yes: S1, S2 Respiratory: Yes: Regular, CTA Bilaterally Gastrointestinal: Yes: Normal Bowel Sounds, Soft Edema: Yes Wound/Incision: Yes: Dressing Removed, Reddened, Excoriated. No: Draining Neurological: Yes: Alert, Oriented Labs: CBC, BMP 04/26/19 05:30 04/26/19 05:30 Problem List - Problems (1) Sepsis Assessment/Plan: secondary to LE wounds IV abx ID Eval presors keep MAP > 55 leukocytosis trending down icu monitoring lactic acidosis now improved Code(s): A41.9 - SEPSIS, UNSPECIFIED ORGANISM (2) NOVA (acute kidney injury) Assessment/Plan: emergent hD done now labs much improved potassium also improved as well bicarbonate level better Code(s): N17.9 - ACUTE KIDNEY FAILURE, UNSPECIFIED (3) Acute renal failure Code(s): N17.9 - ACUTE KIDNEY FAILURE, UNSPECIFIED (4) Afib Code(s): I48.91 - UNSPECIFIED ATRIAL FIBRILLATION Qualifiers: Atrial fibrillation type: paroxysmal Qualified Code(s): I48.0 - Paroxysmal atrial fibrillation (5) Bilateral leg ulcer Assessment/Plan: vascular consult Code(s): L97.919 - NON-PRS CHRONIC ULC UNSP PRT OF R LOW LEG W UNSP SEVERITY; L97.929 - NON-PRS CHRONIC ULC UNSP PRT OF L LOW LEG W UNSP SEVERITY Qualifiers: Non-pressure ulcer stage: limited to breakdown of skin Qualified Code(s): L97.911 - Non-pressure chronic ulcer of unspecified part of right lower leg limited to breakdown of skin; L97.921 - Non-pressure chronic ulcer of unspecified part of left lower leg limited to breakdown of skin (6) Diabetes Assessment/Plan: sliding scale bgm monitoring hga1c noted Code(s): E11.9 - TYPE 2 DIABETES MELLITUS WITHOUT COMPLICATIONS
[2019-04-27] MEDS ORDERED: MEROPENEM 500 MG VIAL (RESTRICTED TO ID) IVPB ONE ×4 (01:10→21:56)
[2019-04-27] MEDS ORDERED: DEXTROSE 5%-WATER 100 ML IVPB ONE ×4 (01:10→21:56)
[2019-04-27] MEDS: MEROPENEM 500 MG in DEXTROSE 5%-WATER 100 ML IVPB SCH ×3 (01:11→18:39)
[2019-04-27] MEDS: SODIUM CHLORIDE 1,000 ML IV SCH ×2 (05:20→17:51)
[2019-04-27] MEDS: INSULIN SLIDING SCALE (NOVOLOG) 1 VIAL SQ SCH ×4 (06:31→22:05)
[2019-04-27] MEDS: NOREPINEPHRINE BITARTRATE 4,000 MCG in DEXTROSE 5%-WATER - 496 ML IV SCH (07:03)
--- NOTE | 2019-04-27 09:00 | PN ---
Progress Note (short form) - Note Progress Note: alert eatig breakfast very poor recall for prior events Vital Signs Period Temp Pulse Resp BP Sys/Callahan Pulse Ox Last 24 Hr 98.1 F-98.7 F 70-91 16-23 86-135/45-72 98-100 cor-rrr llungs clear abd soft,nt ext legs wrapped toes with crusing on the big toes, +purulence fomr the left toe from uncr the crust CBC, BMP 04/26/19 05:30 04/26/19 05:30 Microbiology 04/23/19 22:35 Blood - Peripheral Venous Blood Culture - Preliminary NO GROWTH OBTAINED AFTER 72 HOURS, INCUBATION TO CONTINUE FOR 2 DAYS. 04/23/19 22:35 Blood - Peripheral Venous Blood Culture - Preliminary NO GROWTH OBTAINED AFTER 72 HOURS, INCUBATION TO CONTINUE FOR 2 DAYS. 04/24/19 12:20 Leg - Right Lower Gram Stain - Final 04/24/19 12:20 Leg - Right Lower Wound Culture - Preliminary Non Lactose Fermenting Gnb Non Lactose Fermenting Gnb#2 Non Lactose Fermenting Gnb#3 Lactose Fermenting Neg Bacilli Group D Strep Or Entero Coccus 04/24/19 00:45 Urine - Urine Johnson Urine Culture - Final NO GROWTH OBTAINED Current Medications Apixaban (Eliquis -) 5 mg PO BID [facility] Last Admin: 04/26/19 21:57 Dose: 5 mg Budesonide/Formoterol Fumarate (Symbicort 80/4.5mcg -) 2 puff IH BID [facility] Last Admin: 04/26/19 21:58 Dose: 2 puff Norepinephrine Bitartrate 4, (000 mcg/ Dextrose) 500 mls @ 37.5 mls/hr IV TITR [facility]; Protocol Last Admin: 04/27/19 07:03 Dose: Not Given Sodium Chloride (Normal Saline -) 1,000 mls @ 83 mls/hr IV [facility]IR [facility] Last Admin: 04/27/19 05:20 Dose: 83 mls/hr Meropenem 500 mg/ Dextrose 100 mls @ 200 mls/hr IVPB Q8H-IV [facility] Last Admin: 04/27/19 01:11 Dose: 200 mls/hr Insulin Aspart (Novolog Vial Sliding Scale -) 1 vial SQ ACHS [facility]; Protocol Last Admin: 04/27/19 06:31 Dose: Not Given Morphine Sulfate (Morphine Sulfate) 2 mg IVPUSH Q3H PRN PRN Reason: PAIN LEVEL 1-5 Last Admin: 04/25/19 16:10 Dose: 2 mg Mupirocin (Bactroban Ointment (For Decolonization) -) 1 applic NS BID [facility] Stop: 04/29/19 09:59 Last Admin: 04/26/19 21:57 Dose: 1 applic Nystatin (Mycostatin Cream -) 1 applic TP BID [facility] Last Admin: 04/26/19 21:57 Dose: 1 applic Pantoprazole Sodium (Protonix -) 40 mg PO DAILY [facility] Last Admin: 04/26/19 10:15 Dose: 40 mg Polyethylene Glycol (Miralax (For Daily Use) -) 17 gm PO DAILY [facility] Last Admin: 04/26/19 10:16 Dose: 17 gm Sodium Zirconium Cyclosilicate (Lokelma) 5 gm PO DAILY [facility] Last Admin: 04/26/19 10:15 Dose: 5 gm a/p sepsis-levophed off suspected source is leg ulcers- denies any kind of wound care f/u as outpt now legs are clean no drainage or odor some drainage from the toes acute renal failure improving diabetes chronic leg ulcers- penicillin allergy -reports mouth swelling contact isolation continue meropenem wounds are primarily GNR, no MRSA isolated wound culture from toe drainage sent xeroform to legs for now should be seen by wound care in am for dressing instructions today's labs are pending Problem List - Problems (1) Sepsis Code(s): A41.9 - SEPSIS, UNSPECIFIED ORGANISM (2) ARF (acute renal failure) Code(s): N17.9 - ACUTE KIDNEY FAILURE, UNSPECIFIED (3) Bilateral leg ulcer Code(s): L97.919 - NON-PRS CHRONIC ULC UNSP PRT OF R LOW LEG W UNSP SEVERITY; L97.929 - NON-PRS CHRONIC ULC UNSP PRT OF L LOW LEG W UNSP SEVERITY Qualifiers: Non-pressure ulcer stage: limited to breakdown of skin Qualified Code(s): L97.911 - Non-pressure chronic ulcer of unspecified part of right lower leg limited to breakdown of skin; L97.921 - Non-pressure chronic ulcer of unspecified part of left lower leg limited to breakdown of skin (4) DM2 (diabetes mellitus, type 2) Code(s): E11.9 - TYPE 2 DIABETES MELLITUS WITHOUT COMPLICATIONS Qualifiers: Diabetes mellitus ocean transportation intermediary insulin use: with shelter use Diabetes mellitus complication detail: with other circulatory complications (5) Infected pressure ulcer Code(s): L89.90 - PRESSURE ULCER OF UNSPECIFIED SITE, UNSPECIFIED STAGE; L08.9 - LOCAL INFECTION OF THE SKIN AND SUBCUTANEOUS TISSUE, UNSP (6) UTI (urinary tract infection) Code(s): N39.0 - URINARY TRACT INFECTION, SITE NOT SPECIFIED
[2019-04-27 09:46] LABS: HEMATOCRIT 29.7 % (32.4-45.2); HEMOGLOBIN 9.9 GM/dL (10.7-15.3); MCH 29.1 pg (25.7-33.7); MCHC 33.2 g/dl (32.0-36.0); MEAN CELL VOLUME 87.7 fl (80-96); PLATELET COUNT 215 K/MM3 (134-434); RBC 3.39 M/mm3 (3.60-5.2); RDW 14.6 % (11.6-15.6); WHITE BLOOD COUNT 9.2 K/mm3 (4.0-10.0)
[2019-04-27] MEDS: PANTOPRAZOLE 40 MG TABLET PO SCH (09:54)
[2019-04-27] MEDS: APIXABAN 5 MG TABLET PO SCH ×2 (09:55→22:00)
[2019-04-27] MEDS ORDERED: PT OWN MED DRAWER 7, Y5N ONE (10:04)
[2019-04-27] MEDS: POLYETHYLENE GLYCOL 3350 119 GM BTL PO SCH (10:07)
[2019-04-27 10:10] LABS: BILIRUBIN,TOTAL 0.3 mg/dL (0.2-1); BLOOD UREA NITROGEN 37.4 mg/dL (7-18); CALCIUM 8.3 mg/dL (8.5-10.1); CREATININE 1.1 mg/dL (0.55-1.3); MAGNESIUM 1.4 mg/dL (1.8-2.4); PHOSPHOROUS 1.8 mg/dL (2.5-4.9); TOT PROT 5.5 g/dl (6.4-8.2)
[2019-04-27] MEDS ORDERED: MAGNESIUM SULF 50% (8.12 MEQ/2 ML-1 GM VIAL) IVPB ONE (10:13)
[2019-04-27] MEDS ORDERED: NAPH,MB-DB/K PH,MBDB POWDER PACKET PO ONE (10:15)
--- NOTE | 2019-04-27 10:16 | PN ---
Progress Note, Physician Chief Complaint: patient seen and examined in bed eating breakfast off pressor no more HD needed - Current Medication List Current Medications: Active Medications Apixaban (Eliquis -) 5 mg PO BID [facility] Last Admin: 04/27/19 09:55 Dose: 5 mg Budesonide/Formoterol Fumarate (Symbicort 80/4.5mcg -) 2 puff IH BID [facility] Last Admin: 04/26/19 21:58 Dose: 2 puff Norepinephrine Bitartrate 4, (000 mcg/ Dextrose) 500 mls @ 37.5 mls/hr IV TITR [facility]; Protocol Last Admin: 04/27/19 07:03 Dose: Not Given Sodium Chloride (Normal Saline -) 1,000 mls @ 83 mls/hr IV ASDIR [facility] Last Admin: 04/27/19 05:20 Dose: 83 mls/hr Meropenem 500 mg/ Dextrose 100 mls @ 200 mls/hr IVPB Q8H-IV [facility] Last Admin: 04/27/19 09:58 Dose: 200 mls/hr Insulin Aspart (Novolog Vial Sliding Scale -) 1 vial SQ ACHS [facility]; Protocol Last Admin: 04/27/19 06:31 Dose: Not Given Morphine Sulfate (Morphine Sulfate) 2 mg IVPUSH Q3H PRN PRN Reason: PAIN LEVEL 1-5 Last Admin: 04/25/19 16:10 Dose: 2 mg Mupirocin (Bactroban Ointment (For Decolonization) -) 1 applic NS BID [facility] Stop: 04/29/19 09:59 Last Admin: 04/26/19 21:57 Dose: 1 applic Nystatin (Mycostatin Cream -) 1 applic TP BID [facility] Last Admin: 04/26/19 21:57 Dose: 1 applic Pantoprazole Sodium (Protonix -) 40 mg PO DAILY [facility] Last Admin: 04/27/19 09:54 Dose: 40 mg Polyethylene Glycol (Miralax (For Daily Use) -) 17 gm PO DAILY [facility] Last Admin: 04/27/19 10:07 Dose: 17 gm Sodium Zirconium Cyclosilicate (Lokelma) 5 gm PO DAILY [facility] Last Admin: 04/26/19 10:15 Dose: 5 gm - Objective Vital Signs: Vital Signs Temperature 98.1 F 04/27/19 06:00 Pulse Rate 77 04/27/19 06:00 Respiratory Rate 18 04/27/19 06:00 Blood Pressure 90/49 L 04/27/19 06:00 O2 Sat by Pulse Oximetry (%) 100 04/27/19 01:35 Constitutional: Yes: Calm Cardiovascular: Yes: Regular Rate and Rhythm, S1, S2 Respiratory: Yes: CTA Bilaterally Gastrointestinal: Yes: Normal Bowel Sounds, Soft Edema: Yes (legs wrapped) Labs: CBC, BMP 04/27/19 09:15 Problem List - Problems (1) NOVA (acute kidney injury) Assessment/Plan: renal fucntion improved dialysis catheter removed Code(s): N17.9 - ACUTE KIDNEY FAILURE, UNSPECIFIED (2) Sepsis Assessment/Plan: secondary to LE wounds IV abx leukocytosis imrpoved and off pressors Microbiology 04/24/19 12:20 Leg - Right Lower Gram Stain - Final 04/24/19 12:20 Leg - Right Lower Wound Culture - Preliminary Non Lactose Fermenting Gnb Non Lactose Fermenting Gnb#2 Non Lactose Fermenting Gnb#3 Lactose Fermenting Neg Bacilli Group D Strep Or Entero Coccus PCN allergy on meropenem Code(s): A41.9 - SEPSIS, UNSPECIFIED ORGANISM (3) DM2 (diabetes mellitus, type 2) Assessment/Plan: sliding scale bgm monitoring hga1c noted to be 8.4 Code(s): E11.9 - TYPE 2 DIABETES MELLITUS WITHOUT COMPLICATIONS Qualifiers: Diabetes mellitus retirement insulin use: with middle or intermediate school principal use Diabetes mellitus complication detail: with other circulatory complications
[2019-04-27] MEDS: SODIUM ZIRCONIUM CYCLOSILICATE (LOKELMA) 5 GM PACKET PO SCH ×2 (11:03→19:27)
[2019-04-27] MEDS: BUDESONIDE/FORMETEROL FUMARATE 80/4.5 mcg INHALER IH SCH ×2 (11:03→22:02)
[2019-04-27] MEDS: NYSTATIN 100,000 UNIT/GM TOPICAL CREAM 15 GM TUBE TP SCH ×2 (11:04→22:00)
[2019-04-27] MEDS: MUPIROCIN 2% TOPICAL OINTMENT FOR DECOLONIZATION NS SCH ×2 (11:05→22:00)
--- NOTE | 2019-04-27 11:41 | PN ---
Teaching Attending Note Name of Resident: Kt Agarwal ATTENDING PHYSICIAN STATEMENT I saw and evaluated the patient. I reviewed the resident's note and discussed the case with the resident. I agree with the resident's findings and plan as documented. SUBJECTIVE: Patient seen and examined in the ICU. Awake and alert. Denies CP or SOB. No acute events overnight. Intake & Output 04/24/19 04/25/19 04/26/19 04/27/19 23:59 23:59 23:59 23:59 Intake Total 5518.5 4586 1710 1320 Output Total 585 1740 850 900 Balance 4933.5 2846 860 420 Weight 256 lb 255 lb 15.307 oz 256 lb 257 lb 7.999 oz Last Vital Signs Temp Pulse Resp BP Pulse Ox 98.1 F 77 18 90/49 L 100 04/27/19 06:00 04/27/19 06:00 04/27/19 06:00 04/27/19 06:00 04/27/19 09:00 Active Medications Apixaban (Eliquis -) 5 mg PO BID [facility] Last Admin: 04/27/19 09:55 Dose: 5 mg Budesonide/Formoterol Fumarate (Symbicort 80/4.5mcg -) 2 puff IH BID [facility] Last Admin: 04/27/19 11:03 Dose: 2 puff Norepinephrine Bitartrate 4, (000 mcg/ Dextrose) 500 mls @ 37.5 mls/hr IV TITR [facility]; Protocol Last Admin: 04/27/19 07:03 Dose: Not Given Sodium Chloride (Normal Saline -) 1,000 mls @ 83 mls/hr IV [facility]IR [facility] Last Admin: 04/27/19 05:20 Dose: 83 mls/hr Meropenem 500 mg/ Dextrose 100 mls @ 200 mls/hr IVPB Q8H-IV [facility] Last Admin: 04/27/19 09:58 Dose: 200 mls/hr Insulin Aspart (Novolog Vial Sliding Scale -) 1 vial SQ ACHS [facility]; Protocol Last Admin: 04/27/19 06:31 Dose: Not Given Morphine Sulfate (Morphine Sulfate) 2 mg IVPUSH Q3H PRN PRN Reason: PAIN LEVEL 1-5 Last Admin: 04/25/19 16:10 Dose: 2 mg Mupirocin (Bactroban Ointment (For Decolonization) -) 1 applic NS BID [facility] Stop: 04/29/19 09:59 Last Admin: 04/27/19 11:05 Dose: 1 applic Nystatin (Mycostatin Cream -) 1 applic TP BID [facility] Last Admin: 04/27/19 11:04 Dose: 1 applic Pantoprazole Sodium (Protonix -) 40 mg PO DAILY [facility] Last Admin: 04/27/19 09:54 Dose: 40 mg Polyethylene Glycol (Miralax (For Daily Use) -) 17 gm PO DAILY [facility] Last Admin: 04/27/19 10:07 Dose: 17 gm Sodium Zirconium Cyclosilicate (Lokelma) 5 gm PO DAILY [facility] Last Admin: 04/27/19 11:03 Dose: 5 gm HEENT: PERRL, NCAT, EOMI, PULM: diminished bases CV: regular, no m/r/g appreciated ABD: obese, soft, +BS EXT: severe venous stasis, erythema, wounds bilateral carlin and multiple toes, excoriation, dressed Neuro: non-focal Laboratory Results - last 24 hr 04/26/19 04/26/19 04/26/19 12:25 16:29 22:07 WBC RBC Hgb Hct MCV MCH MCHC RDW Plt Count MPV Sodium Potassium Chloride Carbon Dioxide Anion Gap BUN Creatinine Est GFR (CKD-EPI)AfAm Est GFR (CKD-EPI)NonAf POC Glucometer 181 172 156 Random Glucose Calcium Phosphorus Magnesium Total Bilirubin AST ALT Alkaline Phosphatase Total Protein Albumin Random Vancomycin 04/27/19 04/27/19 04/27/19 05:35 06:24 09:15 WBC 9.2 RBC 3.39 L Hgb 9.9 L Hct 29.7 L MCV 87.7 MCH 29.1 MCHC 33.2 RDW 14.6 Plt Count 215 MPV 9.0 Sodium Potassium Chloride Carbon Dioxide Anion Gap BUN Creatinine Est GFR (CKD-EPI)AfAm Est GFR (CKD-EPI)NonAf POC Glucometer 132 Random Glucose Calcium Phosphorus Magnesium Total Bilirubin AST ALT Alkaline Phosphatase Total Protein Albumin Random Vancomycin 16.9 L 04/27/19 09:15 WBC RBC Hgb Hct MCV MCH MCHC RDW Plt Count MPV Sodium 144 Potassium 4.0 Chloride 114 H Carbon Dioxide 22 Anion Gap 8 BUN 37.4 H Creatinine 1.1 Est GFR (CKD-EPI)AfAm 65.45 Est GFR (CKD-EPI)NonAf 56.47 POC Glucometer Random Glucose 144 H Calcium 8.3 L Phosphorus 1.8 L Magnesium 1.4 L Total Bilirubin 0.3 AST 7 L ALT 8 L Alkaline Phosphatase 105 Total Protein 5.5 L Albumin 2.0 L Random Vancomycin IMP: Resolved Septic Shock Acute on CKD DM PAfib Chronic venous stasis wounds UTI Metabolic encephalopathy PLAN: ABX per ID Local wound care O2 as needed to maintain saturation HD per Renal, if no further HD required-> DC access Glycemic control Eliquis PO as tolerated Floor Dr Andre
--- NOTE | 2019-04-27 13:46 | PN ---
Physical Exam: SUBJECTIVE: Patient seen and examined. No acute events overnight. Patient without complaints. OBJECTIVE: Vital Signs Period Temp Pulse Resp BP Sys/Callahan Pulse Ox Last 24 Hr 98.1 F-98.7 F 70-91 16-23 86-135/49-72 98-100 GENERAL: The patient is awake, alert, and fully oriented, in no acute distress. HEAD: Normal with no signs of trauma. EYES: EOMI, no scleral icterus ENT: dry mucous membranes NECK: Trachea midline LUNGS: Breath sounds equal, clear to auscultation bilaterally, no wheezes, no crackles, no accessory muscle use. HEART: RRR, no murmur ABDOMEN: Soft, nontender, nondistended, normoactive bowel sounds EXTREMITIES: 2+ pulses, warm, well-perfused, no edema. NEUROLOGICAL: Normal speech, gait not observed. Laboratory Results - last 24 hr 04/26/19 04/26/19 04/27/19 16:29 22:07 05:35 WBC RBC Hgb Hct MCV MCH MCHC RDW Plt Count MPV Sodium Potassium Chloride Carbon Dioxide Anion Gap BUN Creatinine Est GFR (CKD-EPI)AfAm Est GFR (CKD-EPI)NonAf POC Glucometer 172 156 Random Glucose Calcium Phosphorus Magnesium Total Bilirubin AST ALT Alkaline Phosphatase Total Protein Albumin Random Vancomycin 16.9 L 04/27/19 04/27/19 04/27/19 06:24 09:15 09:15 WBC 9.2 RBC 3.39 L Hgb 9.9 L Hct 29.7 L MCV 87.7 MCH 29.1 MCHC 33.2 RDW 14.6 Plt Count 215 MPV 9.0 Sodium 144 Potassium 4.0 Chloride 114 H Carbon Dioxide 22 Anion Gap 8 BUN 37.4 H Creatinine 1.1 Est GFR (CKD-EPI)AfAm 65.45 Est GFR (CKD-EPI)NonAf 56.47 POC Glucometer 132 Random Glucose 144 H Calcium 8.3 L Phosphorus 1.8 L Magnesium 1.4 L Total Bilirubin 0.3 AST 7 L ALT 8 L Alkaline Phosphatase 105 Total Protein 5.5 L Albumin 2.0 L Random Vancomycin 04/27/19 12:01 WBC RBC Hgb Hct MCV MCH MCHC RDW Plt Count MPV Sodium Potassium Chloride Carbon Dioxide Anion Gap BUN Creatinine Est GFR (CKD-EPI)AfAm Est GFR (CKD-EPI)NonAf POC Glucometer 191 Random Glucose Calcium Phosphorus Magnesium Total Bilirubin AST ALT Alkaline Phosphatase Total Protein Albumin Random Vancomycin Active Medications Generic Name Dose Route Start Last Admin Trade Name Freq PRN Reason Stop Dose Admin Apixaban 5 mg 04/25/19 22:00 04/27/19 09:55 Eliquis - PO 5 mg BID [facility] Administration Budesonide/Formoterol Fumarate 2 puff 04/24/19 10:00 04/27/19 11:03 Symbicort 80/4.5mcg - IH 2 puff BID [facility] Administration Norepinephrine Bitartrate 4, 500 mls @ 37.5 mls/hr 04/24/19 04:00 04/27/19 07 :03 000 mcg/ Dextrose IV Not Given TITR [facility] Protocol 5 MCG/MIN Sodium Chloride 1,000 mls @ 83 mls/hr 04/25/19 10:15 04/27/19 05:20 Normal Saline - IV 83 mls/hr ASDIR [facility] Administration Meropenem 500 mg/ Dextrose 100 mls @ 200 mls/hr 04/26/19 10:00 04/27/19 09:58 IVPB 200 mls/hr Q8H-IV [facility] Administration Insulin Aspart 1 vial 04/24/19 07:00 04/27/19 12:04 Novolog Vial Sliding Scale - SQ Not Given ACHS [facility] Protocol Morphine Sulfate 2 mg 04/25/19 15:23 04/25/19 16:10 Morphine Sulfate IVPUSH 2 mg Q3H PRN Administration PAIN LEVEL 1-5 Mupirocin 1 applic 04/24/19 10:00 04/27/19 11:05 Bactroban Ointment (For Decolonization) - NS 04/29/19 09:59 1 applic BID [facility] Administration Nystatin 1 applic 04/24/19 10:00 04/27/19 11:04 Mycostatin Cream - TP 1 applic BID [facility] Administration Pantoprazole Sodium 40 mg 04/24/19 10:00 04/27/19 09:54 Protonix - PO 40 mg DAILY [facility] Administration Polyethylene Glycol 17 gm 04/24/19 10:00 04/27/19 10:07 Miralax (For Daily Use) - PO 17 gm DAILY [facility] Administration Sodium Zirconium Cyclosilicate 5 gm 04/25/19 10:00 04/27/19 11:03 Lokelma PO 5 gm DAILY [facility] Administration ASSESSMENT/PLAN: 53 y/o/f with PMHx of afib (on eluqis), HTN, DM, HLD, CKD and chronic BLE ulcers presenting to the ED after being found down at home by her brother with altered mental status. Patient found to have hyperkalemia, ARF, and widened QRS on EKG requiring urgent HD. R IJ trialysis catheter placed 04/24. #Neuro - Acute metabolic encephalopathy 2/2 uremia vs. electrolyte imbalances vs. sepsis. Mental status improved - AAOx3 - CT head w/o contrast negative for acute pathology - Aspiration, fall precautions #Cardio - hx of afib on eliquis - Resume home antihypertensives as hemodynamics allows - Echocardiogram 10/2018 normal EF no valvular disease. PASP moderately elevated. #Pulm - maintain SpO2 >90% - CXR with mild blunting of Left costophrenic angle on admission, no other acute process noted - Symbicort BID #GI - Diabetic diet #Renal - ARF of unclear etiology. Renal function now improved - BUN/Cr at 182/11.5 on admission. Now at 37.4/1.1 - Lactic Acid normalized - Right IJ trialysis catheter placed on 04/24 for urgent HD. Removed now as no further HD needed. - follow I&Os - Renal on board, recs appreciated #ID - Penicillin allergy - Continue Meropenum as per ID - Wounds are primarily GNR, no MRSA isolated - f/u wound cultured from toe drainage - Vascular Sx consulted for chronic LE wounds - ID on board, recs appreciated - Monitor for fevers, PRN Tylenol #Endo - hx DM - ISS - BGMs #Prophylaxis - Eliquis - Protonix #FEN - Diabetic Diet with renal modifications - NS @83mls/hr - Hypo Mg, repleted #Disposition - Stable for transfer to med surg Visit type - Emergency Visit Emergency Visit: Yes ED Registration Date: 04/24/19 Care time: The patient presented to the Emergency Department on the above date and was hospitalized for further evaluation of their emergent condition. - New Patient This patient is new to me today: No - Critical Care Critical Care patient: Yes Total Critical Care Time (in minutes): 36 Critical Care Statement: The care of this patient involved high complexity decision making to prevent further life threatening deterioration of the patient 's condition and/or to evaluate & treat vital organ system(s) failure or risk of failure. ATTENDING PHYSICIAN STATEMENT I saw and evaluated the patient. I reviewed the resident's note and discussed the case with the resident. I agree with the resident's findings and plan as documented. SUBJECTIVE: OBJECTIVE: ASSESSMENT AND PLAN:
--- NOTE | 2019-04-27 14:10 | PN ---
Progress Note, Physician History of Present Illness: Pt seen and examined at bedside. She is awake and alert. She denies shortness of breath. - Current Medication List Current Medications: Active Medications Apixaban (Eliquis -) 5 mg PO BID [facility] Last Admin: 04/27/19 09:55 Dose: 5 mg Budesonide/Formoterol Fumarate (Symbicort 80/4.5mcg -) 2 puff IH BID [facility] Last Admin: 04/27/19 11:03 Dose: 2 puff Norepinephrine Bitartrate 4, (000 mcg/ Dextrose) 500 mls @ 37.5 mls/hr IV TITR [facility]; Protocol Last Admin: 04/27/19 07:03 Dose: Not Given Sodium Chloride (Normal Saline -) 1,000 mls @ 83 mls/hr IV ASDIR [facility] Last Admin: 04/27/19 05:20 Dose: 83 mls/hr Meropenem 500 mg/ Dextrose 100 mls @ 200 mls/hr IVPB Q8H-IV [facility] Last Admin: 04/27/19 09:58 Dose: 200 mls/hr Insulin Aspart (Novolog Vial Sliding Scale -) 1 vial SQ ACHS [facility]; Protocol Last Admin: 04/27/19 12:04 Dose: Not Given Morphine Sulfate (Morphine Sulfate) 2 mg IVPUSH Q3H PRN PRN Reason: PAIN LEVEL 1-5 Last Admin: 04/25/19 16:10 Dose: 2 mg Mupirocin (Bactroban Ointment (For Decolonization) -) 1 applic NS BID [facility] Stop: 04/29/19 09:59 Last Admin: 04/27/19 11:05 Dose: 1 applic Nystatin (Mycostatin Cream -) 1 applic TP BID [facility] Last Admin: 04/27/19 11:04 Dose: 1 applic Pantoprazole Sodium (Protonix -) 40 mg PO DAILY [facility] Last Admin: 04/27/19 09:54 Dose: 40 mg Polyethylene Glycol (Miralax (For Daily Use) -) 17 gm PO DAILY [facility] Last Admin: 04/27/19 10:07 Dose: 17 gm Sodium Zirconium Cyclosilicate (Lokelma) 5 gm PO DAILY [facility] Last Admin: 04/27/19 11:03 Dose: 5 gm - Objective Vital Signs: Vital Signs Temperature 98.1 F 04/27/19 12:00 Pulse Rate 74 04/27/19 12:00 Respiratory Rate 20 04/27/19 12:00 Blood Pressure 105/49 L 04/27/19 12:00 O2 Sat by Pulse Oximetry (%) 100 04/27/19 09:00 Constitutional: Yes: Calm Eyes: Yes: Conjunctiva Clear HENT: Yes: Atraumatic Neck: Yes: Supple Cardiovascular: Yes: S1, S2 Respiratory: Yes: CTA Bilaterally Gastrointestinal: Yes: Soft Genitourinary: Yes: Johnson Present Musculoskeletal: Yes: WNL Edema: Yes Edema: LLE: 1+, RLE: 1+ Neurological: Yes: Oriented Psychiatric: Yes: Oriented Labs: CBC, BMP 04/27/19 09:15 04/27/19 09:15 Problem List - Problems (1) NOVA (acute kidney injury) Code(s): N17.9 - ACUTE KIDNEY FAILURE, UNSPECIFIED (2) ARF (acute renal failure) Code(s): N17.9 - ACUTE KIDNEY FAILURE, UNSPECIFIED (3) Afib Code(s): I48.91 - UNSPECIFIED ATRIAL FIBRILLATION Qualifiers: Atrial fibrillation type: paroxysmal Qualified Code(s): I48.0 - Paroxysmal atrial fibrillation Assessment/Plan Current Medications Generic Name Dose Route Start Last Admin Trade Name Freq PRN Reason Stop Dose Admin Apixaban 5 mg 04/25/19 22:00 04/27/19 09:55 Eliquis - PO 5 mg BID [facility] Administration Budesonide/Formoterol Fumarate 2 puff 04/24/19 10:00 04/27/19 11:03 Symbicort 80/4.5mcg - IH 2 puff BID [facility] Administration Norepinephrine Bitartrate 4, 500 mls @ 37.5 mls/hr 04/24/19 04:00 04/27/19 07 :03 000 mcg/ Dextrose IV Not Given TITR [facility] Protocol 5 MCG/MIN Sodium Chloride 1,000 mls @ 83 mls/hr 04/25/19 10:15 04/27/19 05:20 Normal Saline - IV 83 mls/hr ASDIR [facility] Administration Meropenem 500 mg/ Dextrose 100 mls @ 200 mls/hr 04/26/19 10:00 04/27/19 09:58 IVPB 200 mls/hr Q8H-IV [facility] Administration Insulin Aspart 1 vial 04/24/19 07:00 04/27/19 12:04 Novolog Vial Sliding Scale - SQ Not Given ACHS [facility] Protocol Morphine Sulfate 2 mg 04/25/19 15:23 04/25/19 16:10 Morphine Sulfate IVPUSH 2 mg Q3H PRN Administration PAIN LEVEL 1-5 Mupirocin 1 applic 04/24/19 10:00 04/27/19 11:05 Bactroban Ointment (For Decolonization) - NS 04/29/19 09:59 1 applic BID [facility] Administration Nystatin 1 applic 04/24/19 10:00 04/27/19 11:04 Mycostatin Cream - TP 1 applic BID [facility] Administration Pantoprazole Sodium 40 mg 04/24/19 10:00 04/27/19 09:54 Protonix - PO 40 mg DAILY [facility] Administration Polyethylene Glycol 17 gm 04/24/19 10:00 04/27/19 10:07 Miralax (For Daily Use) - PO 17 gm DAILY [facility] Administration Sodium Zirconium Cyclosilicate 5 gm 04/25/19 10:00 04/27/19 11:03 Lokelma PO 5 gm DAILY [facility] Administration Laboratory Tests 04/27/19 09:15 Potassium 4.0 Creatinine 1.1 Phosphorus 1.8 L Magnesium 1.4 L Impression 1. NOVA 2. hyperkalemia 3. obesity 4. DM 5. a-fib 6. HTN 7. chronic lower extremity ulcers 8. gastritis 9. sepsis 10. hyperglycemia 11. metabolic acidosis 12. peripheral vascular disease Plan - renal function is improved - d/c lokelma - replace mag - replace phos - d/c scooby - discussed with ICU - abx for sepsis
[2019-04-27] MEDS: NAPH,MB-DB/K PH,MBDB POWDER PACKET PO SCH ×2 (15:00→22:00)
[2019-04-27] MEDS: MORPHINE SULFATE 2 MG/ML VIAL IVPUSH PRN (20:42)
[2019-04-27] MEDS: MAGNESIUM OXIDE 400 MG TABLET (FP) PO SCH (22:00)
[2019-04-28] MEDS: MEROPENEM 500 MG in DEXTROSE 5%-WATER 100 ML IVPB SCH ×3 (01:09→17:17)
[2019-04-28] MEDS: MORPHINE SULFATE 2 MG/ML VIAL IVPUSH PRN ×3 (03:32→12:39)
[2019-04-28 06:19] LABS: HEMATOCRIT 29.6 % (32.4-45.2); HEMOGLOBIN 9.8 GM/dL (10.7-15.3); MCH 29.3 pg (25.7-33.7); MCHC 33.1 g/dl (32.0-36.0); MEAN CELL VOLUME 88.7 fl (80-96); MEAN PLT VOLUME 9.1 fl (7.5-11.1); PLATELET COUNT 214 K/MM3 (134-434); RBC 3.34 M/mm3 (3.60-5.2); RDW 14.5 % (11.6-15.6)
[2019-04-28] MEDS: INSULIN SLIDING SCALE (NOVOLOG) 1 VIAL SQ SCH ×4 (06:26→22:53)
[2019-04-28] MEDS ORDERED: SODIUM CHLORIDE 1,000 ML IV SCH (06:26)
[2019-04-28] MEDS: NAPH,MB-DB/K PH,MBDB POWDER PACKET PO SCH ×3 (06:36→22:52)
[2019-04-28 06:59] LABS: ALBUMIN 1.9 g/dl (3.4-5.0); BILIRUBIN,TOTAL 0.3 mg/dL (0.2-1); BLOOD UREA NITROGEN 25.4 mg/dL (7-18); CALCIUM 8.3 mg/dL (8.5-10.1); MAGNESIUM 1.6 mg/dL (1.8-2.4); PHOSPHOROUS 1.6 mg/dL (2.5-4.9); POTASSIUM 3.6 mmol/L (3.5-5.1); TOT PROT 5.4 g/dl (6.4-8.2)
--- NOTE | 2019-04-28 07:47 | PN ---
Physical Exam: SUBJECTIVE: Patient seen and examined. RIJ central line removed yesterday, no complaints of neck pain. LE wound dressings changed today, patient without complaints of leg pain today. No complaints of SOB, chest pain, abd pain. OBJECTIVE: Vital Signs Period Temp Pulse Resp BP Sys/Callahan Pulse Ox Last 24 Hr 98 F-98.9 F 65-98 20-28 99-113/49-63 96-100 GENERAL: The patient is awake, alert, and fully oriented, in no acute distress. HEAD: NC/AT EYES: EOMI ENT: moist mucous membranes. NECK: Trachea midline, full range of motion LUNGS: Breath sounds equal, no wheezes, no crackles, no accessory muscle use. HEART: Regular rate and rhythm, S1, S2 without murmur, rub or gallop. ABDOMEN: Soft, nontender, nondistended, normoactive bowel sounds, no guarding, no rebound EXTREMITIES: 2+ pulses, warm, dressing applied to bilateral lower extremities. + edema Laboratory Results - last 24 hr 04/27/19 04/27/19 04/27/19 09:15 09:15 12:01 WBC 9.2 RBC 3.39 L Hgb 9.9 L Hct 29.7 L MCV 87.7 MCH 29.1 MCHC 33.2 RDW 14.6 Plt Count 215 MPV 9.0 Sodium 144 Potassium 4.0 Chloride 114 H Carbon Dioxide 22 Anion Gap 8 BUN 37.4 H Creatinine 1.1 Est GFR (CKD-EPI)AfAm 65.45 Est GFR (CKD-EPI)NonAf 56.47 POC Glucometer 191 Random Glucose 144 H Calcium 8.3 L Phosphorus 1.8 L Magnesium 1.4 L Total Bilirubin 0.3 AST 7 L ALT 8 L Alkaline Phosphatase 105 Total Protein 5.5 L Albumin 2.0 L 04/27/19 04/28/19 04/28/19 22:04 05:40 05:40 WBC 10.0 RBC 3.34 L Hgb 9.8 L Hct 29.6 L MCV 88.7 MCH 29.3 MCHC 33.1 RDW 14.5 Plt Count 214 MPV 9.1 Sodium 144 Potassium 3.6 Chloride 113 H Carbon Dioxide 23 Anion Gap 8 BUN 25.4 H Creatinine 1.0 Est GFR (CKD-EPI)AfAm 73.45 Est GFR (CKD-EPI)NonAf 63.37 POC Glucometer 197 Random Glucose 159 H Calcium 8.3 L Phosphorus 1.6 L Magnesium 1.6 L Total Bilirubin 0.3 AST 10 L ALT 10 L Alkaline Phosphatase 101 Total Protein 5.4 L Albumin 1.9 L 04/28/19 05:41 WBC RBC Hgb Hct MCV MCH MCHC RDW Plt Count MPV Sodium Potassium Chloride Carbon Dioxide Anion Gap BUN Creatinine Est GFR (CKD-EPI)AfAm Est GFR (CKD-EPI)NonAf POC Glucometer 152 Random Glucose Calcium Phosphorus Magnesium Total Bilirubin AST ALT Alkaline Phosphatase Total Protein Albumin Active Medications Generic Name Dose Route Start Last Admin Trade Name Freq PRN Reason Stop Dose Admin Apixaban 5 mg 04/25/19 22:00 04/27/19 22:00 Eliquis - PO 5 mg BID [facility] Administration Budesonide/Formoterol Fumarate 2 puff 04/24/19 10:00 04/27/19 22:02 Symbicort 80/4.5mcg - IH 2 puff BID [facility] Administration Meropenem 500 mg/ Dextrose 100 mls @ 200 mls/hr 04/26/19 10:00 04/28/19 01:09 IVPB 200 mls/hr Q8H-IV [facility] Administration Sodium Chloride 1,000 mls @ 42 mls/hr 04/28/19 06:26 04/28/19 06:49 Normal Saline - IV 42 mls/hr ASDIR [facility] Administration Insulin Aspart 1 vial 04/24/19 07:00 04/28/19 06:26 Novolog Vial Sliding Scale - SQ Not Given ACHS [facility] Protocol Magnesium Oxide 400 mg 04/27/19 22:00 04/27/19 22:00 Mag-Ox - PO 400 mg BID [facility] Administration Morphine Sulfate 2 mg 04/25/19 15:23 04/28/19 06:36 Morphine Sulfate IVPUSH 2 mg Q3H PRN Administration PAIN LEVEL 1-5 Mupirocin 1 applic 04/24/19 10:00 04/27/19 22:00 Bactroban Ointment (For Decolonization) - NS 04/29/19 09:59 1 applic BID [facility] Administration Nystatin 1 applic 04/24/19 10:00 04/27/19 22:00 Mycostatin Cream - TP 1 applic BID [facility] Administration Pantoprazole Sodium 40 mg 04/24/19 10:00 04/27/19 09:54 Protonix - PO 40 mg DAILY [facility] Administration Polyethylene Glycol 17 gm 04/24/19 10:00 04/27/19 10:07 Miralax (For Daily Use) - PO 17 gm DAILY [facility] Administration Potassium Phos/Sodium Phos 1 packet 04/27/19 14:15 04/28/19 06:36 Phos-Nak Packet - PO 04/28/19 22:01 1 packet TID [facility] Administration ASSESSMENT/PLAN: 53 y/o/f with PMHx of afib (on eluqis), HTN, DM, HLD, CKD and chronic BLE ulcers presenting to the ED after being found down at home by her brother with altered mental status. Patient found to have hyperkalemia, ARF, and widened QRS on EKG requiring urgent HD. R IJ trialysis catheter placed 04/24, now removed. #Neuro - Acute metabolic encephalopathy 2/2 uremia vs. electrolyte imbalances vs. sepsis. Mental status improved - AAOx3 - CT head w/o contrast negative for acute pathology - Aspiration, fall precautions #Cardio - hx of afib on eliquis - Resume home antihypertensives as hemodynamics allows - Echocardiogram 10/2018 normal EF no valvular disease. PASP moderately elevated. #Pulm - maintain SpO2 >90% - Symbicort BID #GI - Diabetic diet #Renal - ARF of unclear etiology. Renal function now improved - BUN/Cr at 182/11.5 on admission. Now at 37.4/1.1 - Lactic Acid normalized - Right IJ trialysis catheter placed on 04/24 for urgent HD. Removed now as no further HD needed. - follow I&Os - Renal on board, recs appreciated #ID - Penicillin allergy - Continue Meropenum as per ID - Wounds are primarily GNR, no MRSA isolated - wound culture for drainage from left toe without growth, follow - Vascular Sx consulted for chronic LE wounds - ID on board, recs appreciated - Monitor for fevers, PRN Tylenol #Endo - hx DM - ISS - BGMs #Prophylaxis - Eliquis - Protonix #FEN - Diabetic Diet with renal modifications. Added Prosource 30ml BID - NS @42mls/hr - Hypo MG, Hypo Phos, replete - monitor and replete lytes as needed #Disposition - Stable for transfer to med surg Visit type - Emergency Visit Emergency Visit: Yes ED Registration Date: 04/24/19 Care time: The patient presented to the Emergency Department on the above date and was hospitalized for further evaluation of their emergent condition. - New Patient This patient is new to me today: No - Critical Care Critical Care patient: Yes Total Critical Care Time (in minutes): 36 Critical Care Statement: The care of this patient involved high complexity decision making to prevent further life threatening deterioration of the patient 's condition and/or to evaluate & treat vital organ system(s) failure or risk of failure. ATTENDING PHYSICIAN STATEMENT I saw and evaluated the patient. I reviewed the resident's note and discussed the case with the resident. I agree with the resident's findings and plan as documented. SUBJECTIVE: OBJECTIVE: ASSESSMENT AND PLAN:
[2019-04-28] MEDS ORDERED: MAGNESIUM SULF 50% (8.12 MEQ/2 ML-1 GM VIAL) IVPB ONE (09:22)
[2019-04-28] MEDS ORDERED: MEROPENEM 500 MG VIAL (RESTRICTED TO ID) IVPB ONE ×2 (09:28→16:07)
[2019-04-28] MEDS ORDERED: DEXTROSE 5%-WATER 100 ML IVPB ONE ×2 (09:28→16:07)
[2019-04-28] MEDS: MAGNESIUM OXIDE 400 MG TABLET (FP) PO SCH ×2 (09:30→22:52)
[2019-04-28] MEDS: APIXABAN 5 MG TABLET PO SCH ×2 (09:30→22:52)
[2019-04-28] MEDS: PANTOPRAZOLE 40 MG TABLET PO SCH (09:30)
[2019-04-28] MEDS: BUDESONIDE/FORMETEROL FUMARATE 80/4.5 mcg INHALER IH SCH ×3 (09:30→22:55)
[2019-04-28] MEDS: MUPIROCIN 2% TOPICAL OINTMENT FOR DECOLONIZATION NS SCH ×2 (09:31→22:54)
[2019-04-28] MEDS: NYSTATIN 100,000 UNIT/GM TOPICAL CREAM 15 GM TUBE TP SCH ×2 (09:31→22:54)
[2019-04-28] MEDS: POLYETHYLENE GLYCOL 3350 119 GM BTL PO SCH (09:32)
--- NOTE | 2019-04-28 09:48 | PN ---
Progress Note, Physician History of Present Illness: seen and examined today in nad. no overnight events. no new complaints. - Current Medication List Current Medications: Active Medications Apixaban (Eliquis -) 5 mg PO BID [facility] Last Admin: 04/28/19 09:30 Dose: 5 mg Budesonide/Formoterol Fumarate (Symbicort 80/4.5mcg -) 2 puff IH BID [facility] Last Admin: 04/28/19 09:30 Dose: 2 puff Meropenem 500 mg/ Dextrose 100 mls @ 200 mls/hr IVPB Q8H-IV [facility] Last Admin: 04/28/19 09:30 Dose: 200 mls/hr Sodium Chloride (Normal Saline -) 1,000 mls @ 42 mls/hr IV ASDIR [facility] Last Admin: 04/28/19 06:49 Dose: 42 mls/hr Insulin Aspart (Novolog Vial Sliding Scale -) 1 vial SQ ACHS [facility]; Protocol Last Admin: 04/28/19 06:26 Dose: Not Given Magnesium Oxide (Mag-Ox -) 400 mg PO BID [facility] Last Admin: 04/28/19 09:30 Dose: 400 mg Morphine Sulfate (Morphine Sulfate) 2 mg IVPUSH Q3H PRN PRN Reason: PAIN LEVEL 1-5 Last Admin: 04/28/19 06:36 Dose: 2 mg Mupirocin (Bactroban Ointment (For Decolonization) -) 1 applic NS BID [facility] Stop: 04/29/19 09:59 Last Admin: 04/28/19 09:31 Dose: 1 applic Nystatin (Mycostatin Cream -) 1 applic TP BID [facility] Last Admin: 04/28/19 09:31 Dose: 1 applic Pantoprazole Sodium (Protonix -) 40 mg PO DAILY [facility] Last Admin: 04/28/19 09:30 Dose: 40 mg Polyethylene Glycol (Miralax (For Daily Use) -) 17 gm PO DAILY [facility] Last Admin: 04/28/19 09:32 Dose: Not Given Potassium Phos/Sodium Phos (Phos-Nak Packet -) 1 packet PO TID [facility] Stop: 04/28/19 22:01 Last Admin: 04/28/19 06:36 Dose: 1 packet - Objective Vital Signs: Vital Signs Temperature 98 F 04/28/19 06:36 Pulse Rate 78 04/28/19 06:36 Respiratory Rate 23 H 04/28/19 06:36 Blood Pressure 113/60 04/28/19 06:36 O2 Sat by Pulse Oximetry (%) 100 04/28/19 04:00 Constitutional: Yes: No Distress, Calm Eyes: Yes: Conjunctiva Clear, EOM Intact HENT: Yes: Atraumatic, Normocephalic Neck: Yes: Supple, Trachea Midline Cardiovascular: Yes: Pulse Irregular, S1, S2. No: Regular Rate and Rhythm, Bradycardia, Tachycardia, Bruit, JVD, Gallop, Murmur, Rub, S3, S4, Varicosities Respiratory: Yes: Regular, CTA Bilaterally. No: Rales, Rhonchi, SOB, Wheezes Gastrointestinal: Yes: Normal Bowel Sounds, Soft. No: Distention, Tenderness Extremities: Yes: WNL Edema: No Peripheral Pulses WNL: Yes Neurological: Yes: Alert, Oriented Psychiatric: Yes: Alert, Oriented Labs: CBC, BMP 04/28/19 05:40 04/28/19 05:40 - ....Imaging Chest X-ray: Report Reviewed, Image Reviewed EKG: Report Reviewed, Image Reviewed Other: Report Reviewed, Image Reviewed (tele-Afib, HR adequately controlled) Assessment/Plan 53 year old female with a PMH of chronic AFIB on Eliquis, HTN, DM HLD, CKD, and chronic bilateral leg ulcers. she was recently admitted with sepsis requiring pressors and rapid afib, NOVA requiring HD. Now admitted after being found on the floor,found lactic acidosis, sepsis with shock, GNR bacteremia. Echocardiogram 10/2018 normal EF no valvular disease PASP moderately elevated. PAF -currently Afib with adequate HR control -does not require AV odalys blockers at this time -cont NOAC -plan to likely resume low dose metoprolol when/if HR requires and if BP tolerates, currently does not require it.
--- NOTE | 2019-04-28 11:40 | PN ---
Progress Note, Physician Chief Complaint: SEEN IN ICU EVENTS AND NOTES REVIEWED AWAKE ALERT FEELING BETTER - Current Medication List Current Medications: Active Medications Apixaban (Eliquis -) 5 mg PO BID [facility] Last Admin: 04/28/19 09:30 Dose: 5 mg Budesonide/Formoterol Fumarate (Symbicort 80/4.5mcg -) 2 puff IH BID [facility] Last Admin: 04/28/19 10:42 Dose: 2 puff Meropenem 500 mg/ Dextrose 100 mls @ 200 mls/hr IVPB Q8H-IV [facility] Last Admin: 04/28/19 09:30 Dose: 200 mls/hr Sodium Chloride (Normal Saline -) 1,000 mls @ 42 mls/hr IV ASDIR [facility] Last Admin: 04/28/19 06:49 Dose: 42 mls/hr Insulin Aspart (Novolog Vial Sliding Scale -) 1 vial SQ ACHS [facility]; Protocol Last Admin: 04/28/19 10:42 Dose: Not Given Magnesium Oxide (Mag-Ox -) 400 mg PO BID [facility] Last Admin: 04/28/19 09:30 Dose: 400 mg Morphine Sulfate (Morphine Sulfate) 2 mg IVPUSH Q3H PRN PRN Reason: PAIN LEVEL 1-5 Last Admin: 04/28/19 06:36 Dose: 2 mg Mupirocin (Bactroban Ointment (For Decolonization) -) 1 applic NS BID [facility] Stop: 04/29/19 09:59 Last Admin: 04/28/19 09:31 Dose: 1 applic Nystatin (Mycostatin Cream -) 1 applic TP BID [facility] Last Admin: 04/28/19 09:31 Dose: 1 applic Pantoprazole Sodium (Protonix -) 40 mg PO DAILY [facility] Last Admin: 04/28/19 09:30 Dose: 40 mg Polyethylene Glycol (Miralax (For Daily Use) -) 17 gm PO DAILY [facility] Last Admin: 04/28/19 09:32 Dose: Not Given Potassium Phos/Sodium Phos (Phos-Nak Packet -) 1 packet PO TID [facility] Stop: 04/28/19 22:01 Last Admin: 04/28/19 06:36 Dose: 1 packet - Objective Vital Signs: Vital Signs Temperature 98 F 04/28/19 06:36 Pulse Rate 66 04/28/19 11:33 Respiratory Rate 28 H 04/28/19 11:33 Blood Pressure 104/39 L 04/28/19 11:33 O2 Sat by Pulse Oximetry (%) 100 04/28/19 09:00 Constitutional: Yes: Mild Distress Cardiovascular: Yes: Regular Rate and Rhythm Respiratory: Yes: WNL Gastrointestinal: Yes: Soft, Abdomen, Obese Genitourinary: Yes: Incontinence Musculoskeletal: Yes: Muscle Weakness Extremities: Yes: Deformity Edema: Yes Integumentary: Yes: Pressure Ulcer, Rash, Venous Stasis Changes Wound/Incision: Yes: Dressing Dry and Intact, Excoriated, Unapproximated Neurological: Yes: Paresthesia, Pre-Existing Deficit, Weakness ...Motor Strength: LLE, RLE Psychiatric: Yes: WNL Labs: CBC, BMP 04/28/19 05:40 04/28/19 05:40 Problem List - Problems (1) Diabetes Code(s): E11.9 - TYPE 2 DIABETES MELLITUS WITHOUT COMPLICATIONS (2) Infected pressure ulcer Code(s): L89.90 - PRESSURE ULCER OF UNSPECIFIED SITE, UNSPECIFIED STAGE; L08.9 - LOCAL INFECTION OF THE SKIN AND SUBCUTANEOUS TISSUE, UNSP (3) Sepsis Code(s): A41.9 - SEPSIS, UNSPECIFIED ORGANISM (4) UTI (urinary tract infection) Code(s): N39.0 - URINARY TRACT INFECTION, SITE NOT SPECIFIED (5) ARF (acute renal failure) Code(s): N17.9 - ACUTE KIDNEY FAILURE, UNSPECIFIED (6) Abdominal lymphadenopathy Code(s): R59.0 - LOCALIZED ENLARGED LYMPH NODES (7) Anemia Code(s): D64.9 - ANEMIA, UNSPECIFIED (8) Bilateral leg ulcer Code(s): L97.919 - NON-PRS CHRONIC ULC UNSP PRT OF R LOW LEG W UNSP SEVERITY; L97.929 - NON-PRS CHRONIC ULC UNSP PRT OF L LOW LEG W UNSP SEVERITY Qualifiers: Non-pressure ulcer stage: limited to breakdown of skin Qualified Code(s): L97.911 - Non-pressure chronic ulcer of unspecified part of right lower leg limited to breakdown of skin; L97.921 - Non-pressure chronic ulcer of unspecified part of left lower leg limited to breakdown of skin (9) Chronic cellulitis Code(s): L03.90 - CELLULITIS, UNSPECIFIED (10) DM2 (diabetes mellitus, type 2) Code(s): E11.9 - TYPE 2 DIABETES MELLITUS WITHOUT COMPLICATIONS Qualifiers: Diabetes mellitus correction insulin 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
[2019-04-28 12:28] VITALS: BMI 43.1
--- NOTE | 2019-04-28 12:45 | PN ---
Teaching Attending Note Name of Resident: Kt Agarwal ATTENDING PHYSICIAN STATEMENT I saw and evaluated the patient. I reviewed the resident's note and discussed the case with the resident. I agree with the resident's findings and plan as documented. SUBJECTIVE: Patient seen and examined in the ICU. Awake and alert. Denies CP or SOB. No acute events overnight. Intake & Output 04/25/19 04/26/19 04/27/19 04/28/19 23:59 23:59 23:59 23:59 Intake Total 4586 1710 3070 754 Output Total 4624 743 9560 450 Balance 2846 860 1170 304 Weight 255 lb 15.307 oz 256 lb 257 lb 7.999 oz 259 lb 3.2 oz Last Vital Signs Temp Pulse Resp BP Pulse Ox 98 F 66 28 H 104/39 L 100 04/28/19 06:36 04/28/19 11:33 04/28/19 11:33 04/28/19 11:33 04/28/19 09:00 Active Medications Amino Acids (Prosource No Carb Liquid Pkt) 30 ml PO BID@0800,1730 [facility] Apixaban (Eliquis -) 5 mg PO BID [facility] Last Admin: 04/28/19 09:30 Dose: 5 mg Budesonide/Formoterol Fumarate (Symbicort 80/4.5mcg -) 2 puff IH BID [facility] Last Admin: 04/28/19 10:42 Dose: 2 puff Meropenem 500 mg/ Dextrose 100 mls @ 200 mls/hr IVPB Q8H-IV [facility] Last Admin: 04/28/19 09:30 Dose: 200 mls/hr Sodium Chloride (Normal Saline -) 1,000 mls @ 42 mls/hr IV ASDIR [facility] Last Admin: 04/28/19 06:49 Dose: 42 mls/hr Insulin Aspart (Novolog Vial Sliding Scale -) 1 vial SQ ACHS [facility]; Protocol Last Admin: 04/28/19 10:42 Dose: Not Given Magnesium Oxide (Mag-Ox -) 400 mg PO BID [facility] Last Admin: 04/28/19 09:30 Dose: 400 mg Morphine Sulfate (Morphine Sulfate) 2 mg IVPUSH Q3H PRN PRN Reason: PAIN LEVEL 1-5 Last Admin: 04/28/19 12:39 Dose: 2 mg Mupirocin (Bactroban Ointment (For Decolonization) -) 1 applic NS BID [facility] Stop: 04/29/19 09:59 Last Admin: 04/28/19 09:31 Dose: 1 applic Nystatin (Mycostatin Cream -) 1 applic TP BID [facility] Last Admin: 04/28/19 09:31 Dose: 1 applic Pantoprazole Sodium (Protonix -) 40 mg PO DAILY [facility] Last Admin: 04/28/19 09:30 Dose: 40 mg Polyethylene Glycol (Miralax (For Daily Use) -) 17 gm PO DAILY [facility] Last Admin: 04/28/19 09:32 Dose: Not Given Potassium Phos/Sodium Phos (Phos-Nak Packet -) 1 packet PO TID [facility] Stop: 04/28/19 22:01 Last Admin: 04/28/19 06:36 Dose: 1 packet HEENT: PERRL, NCAT, EOMI PULM: diminished bases CV: regular, no m/r/g appreciated ABD: obese, soft, +BS EXT: severe venous stasis, erythema, wounds bilateral carlin and multiple toes, excoriation, dressed Neuro: non-focal Laboratory Results - last 24 hr 04/27/19 04/27/19 04/28/19 16:41 22:04 05:40 WBC RBC Hgb Hct MCV MCH MCHC RDW Plt Count MPV Sodium 144 Potassium 3.6 Chloride 113 H Carbon Dioxide 23 Anion Gap 8 BUN 25.4 H Creatinine 1.0 Est GFR (CKD-EPI)AfAm 73.45 Est GFR (CKD-EPI)NonAf 63.37 POC Glucometer 218 197 Random Glucose 159 H Calcium 8.3 L Phosphorus 1.6 L Magnesium 1.6 L Total Bilirubin 0.3 AST 10 L ALT 10 L Alkaline Phosphatase 101 Total Protein 5.4 L Albumin 1.9 L 04/28/19 04/28/19 04/28/19 05:40 05:41 10:34 WBC 10.0 RBC 3.34 L Hgb 9.8 L Hct 29.6 L MCV 88.7 MCH 29.3 MCHC 33.1 RDW 14.5 Plt Count 214 MPV 9.1 Sodium Potassium Chloride Carbon Dioxide Anion Gap BUN Creatinine Est GFR (CKD-EPI)AfAm Est GFR (CKD-EPI)NonAf POC Glucometer 152 166 Random Glucose Calcium Phosphorus Magnesium Total Bilirubin AST ALT Alkaline Phosphatase Total Protein Albumin IMP: Resolved Septic Shock Acute on CKD DM PAfib Chronic venous stasis wounds UTI Metabolic encephalopathy PLAN: ABX per ID Local wound care O2 as needed to maintain saturation Glycemic control Eliquis PO as tolerated Floor Dr Andre
--- NOTE | 2019-04-28 14:24 | PN ---
Progress Note (short form) - Note Progress Note: alert cuevas out Vital Signs Period Temp Pulse Resp BP Sys/Callahan Pulse Ox Last 24 Hr 98 F-98.9 F 65-78 20-28 101-113/39-63 96-100 cor-rrr llungs clear abd soft,nt ext legs are wrapped CBC, BMP 04/28/19 05:40 04/28/19 05:40 Microbiology 04/24/19 12:20 Leg - Right Lower Gram Stain - Final 04/24/19 12:20 Leg - Right Lower Wound Culture - Preliminary Pseudomonas Aeruginosa Non Lactose Fermenting Gnb Alcaligenes Faecalis Escherichia Coli Enterococcus Faecalis Diphtheroid/Corynebacterium Non Lactose Fermenting Gnb#2 04/27/19 11:00 Toe - Left Hallux Gram Stain - Final 04/27/19 11:00 Toe - Left Hallux Wound Culture - Preliminary NO GROWTH OBTAINED AFTER 24 HOURS INCUBATION, REINCUBATED. 04/23/19 22:35 Blood - Peripheral Venous Blood Culture - Preliminary NO GROWTH OBTAINED AFTER 96 HOURS, INCUBATION TO CONTINUE FOR 1 DAYS. 04/23/19 22:35 Blood - Peripheral Venous Blood Culture - Preliminary NO GROWTH OBTAINED AFTER 96 HOURS, INCUBATION TO CONTINUE FOR 1 DAYS. 04/24/19 00:45 Urine - Urine Cuevas Urine Culture - Final NO GROWTH OBTAINED a/p sepsis-levophed off suspected source is leg ulcers- denies any kind of wound care f/u as outpt now legs are clean no drainage or odor some drainage from the toes acute renal failure improving diabetes chronic leg ulcers- penicillin allergy -reports mouth swelling contact isolation continue meropenem day #5 Problem List - Problems (1) Sepsis Code(s): A41.9 - SEPSIS, UNSPECIFIED ORGANISM (2) ARF (acute renal failure) Code(s): N17.9 - ACUTE KIDNEY FAILURE, UNSPECIFIED (3) Bilateral leg ulcer Code(s): L97.919 - NON-PRS CHRONIC ULC UNSP PRT OF R LOW LEG W UNSP SEVERITY; L97.929 - NON-PRS CHRONIC ULC UNSP PRT OF L LOW LEG W UNSP SEVERITY Qualifiers: Non-pressure ulcer stage: limited to breakdown of skin Qualified Code(s): L97.911 - Non-pressure chronic ulcer of unspecified part of right lower leg limited to breakdown of skin; L97.921 - Non-pressure chronic ulcer of unspecified part of left lower leg limited to breakdown of skin (4) DM2 (diabetes mellitus, type 2) Code(s): E11.9 - TYPE 2 DIABETES MELLITUS WITHOUT COMPLICATIONS Qualifiers: Diabetes mellitus fpc insulin use: with terminal 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
[2019-04-28] MEDS: AMINO ACIDS/PROTEIN HYDROLYS 30 ML LIQUID.PKT PO SCH (16:30)
--- NOTE | 2019-04-28 17:38 | PN ---
Progress Note, Physician History of Present Illness: Pt seen and examined at bedside. She is awake and alert. - Current Medication List Current Medications: Active Medications Amino Acids (Prosource No Carb Liquid Pkt) 30 ml PO BID@0800,1730 [facility] Last Admin: 04/28/19 16:30 Dose: 30 ml Apixaban (Eliquis -) 5 mg PO BID [facility] Last Admin: 04/28/19 09:30 Dose: 5 mg Budesonide/Formoterol Fumarate (Symbicort 80/4.5mcg -) 2 puff IH BID [facility] Last Admin: 04/28/19 10:42 Dose: 2 puff Meropenem 500 mg/ Dextrose 100 mls @ 200 mls/hr IVPB Q8H-IV [facility] Last Admin: 04/28/19 17:17 Dose: 200 mls/hr Sodium Chloride (Normal Saline -) 1,000 mls @ 42 mls/hr IV ASDIR [facility] Last Admin: 04/28/19 06:49 Dose: 42 mls/hr Insulin Aspart (Novolog Vial Sliding Scale -) 1 vial SQ ACHS [facility]; Protocol Last Admin: 04/28/19 16:28 Dose: Not Given Magnesium Oxide (Mag-Ox -) 400 mg PO BID [facility] Last Admin: 04/28/19 09:30 Dose: 400 mg Morphine Sulfate (Morphine Sulfate) 2 mg IVPUSH Q3H PRN PRN Reason: PAIN LEVEL 1-5 Last Admin: 04/28/19 12:39 Dose: 2 mg Mupirocin (Bactroban Ointment (For Decolonization) -) 1 applic NS BID [facility] Stop: 04/29/19 09:59 Last Admin: 04/28/19 09:31 Dose: 1 applic Nystatin (Mycostatin Cream -) 1 applic TP BID [facility] Last Admin: 04/28/19 09:31 Dose: 1 applic Pantoprazole Sodium (Protonix -) 40 mg PO DAILY [facility] Last Admin: 04/28/19 09:30 Dose: 40 mg Polyethylene Glycol (Miralax (For Daily Use) -) 17 gm PO DAILY [facility] Last Admin: 04/28/19 09:32 Dose: Not Given Potassium Phos/Sodium Phos (Phos-Nak Packet -) 1 packet PO TID [facility] Stop: 04/28/19 22:01 Last Admin: 04/28/19 12:59 Dose: 1 packet - Objective Vital Signs: Vital Signs Temperature 98 F 04/28/19 06:36 Pulse Rate 66 04/28/19 11:33 Respiratory Rate 28 H 04/28/19 11:33 Blood Pressure 104/39 L 04/28/19 11:33 O2 Sat by Pulse Oximetry (%) 100 04/28/19 09:00 Constitutional: Yes: Calm Eyes: Yes: Conjunctiva Clear HENT: Yes: Atraumatic Neck: Yes: Supple Cardiovascular: Yes: S1, S2 Respiratory: Yes: CTA Bilaterally Gastrointestinal: Yes: Normal Bowel Sounds, Soft Genitourinary: Yes: WNL Musculoskeletal: Yes: WNL Edema: Yes Edema: LLE: 1+, RLE: 1+ Integumentary: Yes: Erythema, Venous Stasis Changes Neurological: Yes: Oriented Labs: CBC, BMP 04/28/19 05:40 04/28/19 05:40 Problem List - Problems (1) NOVA (acute kidney injury) Code(s): N17.9 - ACUTE KIDNEY FAILURE, UNSPECIFIED (2) ARF (acute renal failure) Code(s): N17.9 - ACUTE KIDNEY FAILURE, UNSPECIFIED (3) Afib Code(s): I48.91 - UNSPECIFIED ATRIAL FIBRILLATION Qualifiers: Atrial fibrillation type: paroxysmal Qualified Code(s): I48.0 - Paroxysmal atrial fibrillation Assessment/Plan Current Medications Generic Name Dose Route Start Last Admin Trade Name Freq PRN Reason Stop Dose Admin Amino Acids 30 ml 04/28/19 17:30 04/28/19 16:30 Prosource No Carb Liquid Pkt PO 30 ml BID@0800,1730 [facility] Administration Apixaban 5 mg 04/25/19 22:00 04/28/19 09:30 Eliquis - PO 5 mg BID [facility] Administration Budesonide/Formoterol Fumarate 2 puff 04/24/19 10:00 04/28/19 10:42 Symbicort 80/4.5mcg - IH 2 puff BID [facility] Administration Meropenem 500 mg/ Dextrose 100 mls @ 200 mls/hr 04/26/19 10:00 04/28/19 17:17 IVPB 200 mls/hr Q8H-IV [facility] Administration Sodium Chloride 1,000 mls @ 42 mls/hr 04/28/19 06:26 04/28/19 06:49 Normal Saline - IV 42 mls/hr ASDIR [facility] Administration Insulin Aspart 1 vial 04/24/19 07:00 04/28/19 16:28 Novolog Vial Sliding Scale - SQ Not Given ACHS [facility] Protocol Magnesium Oxide 400 mg 04/27/19 22:00 04/28/19 09:30 Mag-Ox - PO 400 mg BID [facility] Administration Morphine Sulfate 2 mg 04/25/19 15:23 04/28/19 12:39 Morphine Sulfate IVPUSH 2 mg Q3H PRN Administration PAIN LEVEL 1-5 Mupirocin 1 applic 04/24/19 10:00 04/28/19 09:31 Bactroban Ointment (For Decolonization) - NS 04/29/19 09:59 1 applic BID [facility] Administration Nystatin 1 applic 04/24/19 10:00 04/28/19 09:31 Mycostatin Cream - TP 1 applic BID [facility] Administration Pantoprazole Sodium 40 mg 04/24/19 10:00 04/28/19 09:30 Protonix - PO 40 mg DAILY [facility] Administration Polyethylene Glycol 17 gm 04/24/19 10:00 04/28/19 09:32 Miralax (For Daily Use) - PO Not Given DAILY [facility] Potassium Phos/Sodium Phos 1 packet 04/27/19 14:15 04/28/19 12:59 Phos-Nak Packet - PO 04/28/19 22:01 1 packet TID [facility] Administration Impression 1. NOVA 2. hyperkalemia 3. obesity 4. DM 5. a-fib 6. HTN 7. chronic lower extremity ulcers 8. gastritis 9. sepsis 10. hyperglycemia 11. metabolic acidosis 12. peripheral vascular disease Plan - renal function stable - replace lytes - repeat labs in am - replace phos - discussed with ICU - abx for sepsis
[2019-04-28] MEDS ORDERED: SODIUM CHLORIDE NASAL SPRAY 44 ML BOTTLE NS PRN (23:36)
[2019-04-29] MEDS ORDERED: DEXTROSE 5%-WATER 100 ML IVPB ONE ×3 (02:51→17:35)
[2019-04-29] MEDS ORDERED: MEROPENEM 500 MG VIAL (RESTRICTED TO ID) IVPB ONE ×3 (02:51→17:35)
[2019-04-29] MEDS: MEROPENEM 500 MG in DEXTROSE 5%-WATER 100 ML IVPB SCH ×3 (02:55→18:06)
[2019-04-29] MEDS: INSULIN SLIDING SCALE (NOVOLOG) 1 VIAL SQ SCH ×4 (06:21→21:38)
[2019-04-29 06:36] LABS: HEMOGLOBIN 9.5 GM/dL (10.7-15.3); MCH 28.8 pg (25.7-33.7); MCHC 32.8 g/dl (32.0-36.0); MEAN CELL VOLUME 87.8 fl (80-96); MEAN PLT VOLUME 8.9 fl (7.5-11.1); PLATELET COUNT 229 K/MM3 (134-434); RDW 14.5 % (11.6-15.6); WHITE BLOOD COUNT 11.4 K/mm3 (4.0-10.0)
[2019-04-29 07:10] LABS: ALBUMIN 1.9 g/dl (3.4-5.0); BILIRUBIN,TOTAL 0.2 mg/dL (0.2-1); BLOOD UREA NITROGEN 18.3 mg/dL (7-18); CALCIUM 8.3 mg/dL (8.5-10.1); CREATININE 0.9 mg/dL (0.55-1.3); MAGNESIUM 1.5 mg/dL (1.8-2.4); PHOSPHOROUS 1.7 mg/dL (2.5-4.9); POTASSIUM 3.8 mmol/L (3.5-5.1); TOT PROT 5.2 g/dl (6.4-8.2)
[2019-04-29] MEDS ORDERED: NAPH,MB-DB/K PH,MBDB POWDER PACKET PO ONE ×2 (07:46→07:47)
[2019-04-29] MEDS: AMINO ACIDS/PROTEIN HYDROLYS 30 ML LIQUID.PKT PO SCH ×2 (08:30→18:06)
[2019-04-29] MEDS: APIXABAN 5 MG TABLET PO SCH ×2 (11:04→21:32)
[2019-04-29] MEDS: MAGNESIUM OXIDE 400 MG TABLET (FP) PO SCH ×2 (11:04→21:32)
[2019-04-29] MEDS: PANTOPRAZOLE 40 MG TABLET PO SCH (11:05)
[2019-04-29] MEDS: POLYETHYLENE GLYCOL 3350 119 GM BTL PO SCH (11:05)
--- NOTE | 2019-04-29 11:07 | PN ---
Progress Note, Physician Chief Complaint: Sepsis NOVA DM History of Present Illness: Previous notes and events reviewed awake and alert NAD denies complaints of chest pain or SOB leukocytosis afebrile - Current Medication List Current Medications: Active Medications Amino Acids (Prosource No Carb Liquid Pkt) 30 ml PO BID@0800,1730 [facility] Last Admin: 04/29/19 08:30 Dose: 30 ml Apixaban (Eliquis -) 5 mg PO BID [facility] Budesonide/Formoterol Fumarate (Symbicort 80/4.5mcg -) 2 puff IH BID [facility] Meropenem 500 mg/ Dextrose 100 mls @ 200 mls/hr IVPB Q8H-IV [facility] Insulin Aspart (Novolog Vial Sliding Scale -) 1 vial SQ ACHS [facility]; Protocol Magnesium Oxide (Mag-Ox -) 400 mg PO BID [facility] Last Admin: 04/28/19 22:52 Dose: 400 mg Morphine Sulfate (Morphine Sulfate) 2 mg IVPUSH Q3H PRN PRN Reason: PAIN LEVEL 1-5 Nystatin (Mycostatin Cream -) 1 applic TP BID [facility] Pantoprazole Sodium (Protonix -) 40 mg PO DAILY [facility] Polyethylene Glycol (Miralax (For Daily Use) -) 17 gm PO DAILY [facility] Sodium Chloride ([employer] [place] Nasal [place] -) 2 spray NS BID PRN PRN Reason: NASAL CONGESTION - Objective Vital Signs: Vital Signs Temperature 98.2 F 04/29/19 08:00 Pulse Rate 78 04/29/19 08:00 Respiratory Rate 22 H 04/29/19 08:00 Blood Pressure 119/56 L 04/29/19 08:00 O2 Sat by Pulse Oximetry (%) 95 04/29/19 09:00 Constitutional: Yes: No Distress, Calm, Obese Eyes: Yes: Conjunctiva Clear HENT: Yes: Atraumatic Cardiovascular: Yes: Pulse Irregular Respiratory: Yes: Regular, Diminished Gastrointestinal: Yes: Normal Bowel Sounds, Soft, Abdomen, Obese Musculoskeletal: Yes: Muscle Weakness Extremities: Yes: WNL Edema: Yes Wound/Incision: Yes: Dressing Dry and Intact Neurological: Yes: Alert, Oriented Psychiatric: Yes: Alert, Oriented Labs: CBC, BMP 04/29/19 05:40 04/29/19 05:40 Microbiology 04/23/19 22:35 Blood - Peripheral Venous Blood Culture - Final NO GROWTH AFTER 5 DAYS INCUBATION 04/23/19 22:35 Blood - Peripheral Venous Blood Culture - Final NO GROWTH AFTER 5 DAYS INCUBATION 04/24/19 12:20 Leg - Right Lower Gram Stain - Final 04/24/19 12:20 Leg - Right Lower Wound Culture - Preliminary Pseudomonas Aeruginosa Non Lactose Fermenting Gnb Alcaligenes Faecalis Escherichia Coli Enterococcus Faecalis Diphtheroid/Corynebacterium Non Lactose Fermenting Gnb#2 04/27/19 11:00 Toe - Left Hallux Gram Stain - Final 04/27/19 11:00 Toe - Left Hallux Wound Culture - Preliminary NO GROWTH OBTAINED AFTER 24 HOURS INCUBATION, REINCUBATED. 04/24/19 00:45 Urine - Urine Johnson Urine Culture - Final NO GROWTH OBTAINED Problem List - Problems (1) Diabetes Assessment/Plan: -BGM ACHS -ISS -HgA1c 8.4% -Diabetic diet Code(s): E11.9 - TYPE 2 DIABETES MELLITUS WITHOUT COMPLICATIONS (2) Sepsis Assessment/Plan: -ID on board -RLE wound culture positive -leukocytosis -afebrile -Meropenem -BC and UC neg -LA 4.0~1.3 Code(s): A41.9 - SEPSIS, UNSPECIFIED ORGANISM (3) NOVA (acute kidney injury) Assessment/Plan: -Renal on board -BUN/Cr 18.3/0.9 -monitor renal function Code(s): N17.9 - ACUTE KIDNEY FAILURE, UNSPECIFIED (4) Acute metabolic encephalopathy Assessment/Plan: -secondary to infection -resolved Code(s): G93.41 - METABOLIC ENCEPHALOPATHY (5) Afib Assessment/Plan: -Eliquis -Cardiology on board Code(s): I48.91 - UNSPECIFIED ATRIAL FIBRILLATION Qualifiers: Atrial fibrillation type: paroxysmal Qualified Code(s): I48.0 - Paroxysmal atrial fibrillation (6) Cellulitis Assessment/Plan: -ID on board -RLE wound culture positive -leukocytosis -afebrile -Meropenem -BC neg -LA 4.0~1.3 Code(s): L03.90 - CELLULITIS, UNSPECIFIED Qualifiers: Site of cellulitis: unspecified site Qualified Code(s): L03.90 - Cellulitis , unspecified (7) HTN (hypertension) Assessment/Plan: -monitor BP -Metoprolol on hold, will resume if BP show elevation Code(s): I10 - ESSENTIAL (PRIMARY) HYPERTENSION Assessment/Plan see problem list
[2019-04-29] MEDS: BUDESONIDE/FORMETEROL FUMARATE 80/4.5 mcg INHALER IH SCH (11:09)
[2019-04-29] MEDS: NYSTATIN 100,000 UNIT/GM TOPICAL CREAM 15 GM TUBE TP SCH (11:32)
--- NOTE | 2019-04-29 12:20 | PN ---
Progress Note, Physician History of Present Illness: Pt seen and examined at bedside. She is awake and alert. She denies shortness of breath. - Current Medication List Current Medications: Active Medications Amino Acids (Prosource No Carb Liquid Pkt) 30 ml PO BID@0800,1730 [facility] Last Admin: 04/29/19 08:30 Dose: 30 ml Apixaban (Eliquis -) 5 mg PO BID [facility] Last Admin: 04/29/19 11:04 Dose: 5 mg Budesonide/Formoterol Fumarate (Symbicort 80/4.5mcg -) 2 puff IH BID [facility] Last Admin: 04/29/19 11:09 Dose: Not Given Meropenem 500 mg/ Dextrose 100 mls @ 200 mls/hr IVPB Q8H-IV [facility] Last Admin: 04/29/19 11:05 Dose: 200 mls/hr Insulin Aspart (Novolog Vial Sliding Scale -) 1 vial SQ ACHS [facility]; Protocol Last Admin: 04/29/19 11:31 Dose: 2 units Magnesium Oxide (Mag-Ox -) 400 mg PO BID [facility] Last Admin: 04/29/19 11:04 Dose: 400 mg Morphine Sulfate (Morphine Sulfate) 2 mg IVPUSH Q3H PRN PRN Reason: PAIN LEVEL 1-5 Nystatin (Mycostatin Cream -) 1 applic TP BID [facility] Last Admin: 04/29/19 11:32 Dose: Not Given Pantoprazole Sodium (Protonix -) 40 mg PO DAILY [facility] Last Admin: 04/29/19 11:05 Dose: 40 mg Polyethylene Glycol (Miralax (For Daily Use) -) 17 gm PO DAILY [facility] Last Admin: 04/29/19 11:05 Dose: 17 grams Sodium Chloride ([place] Nasal [place] -) 2 spray NS BID PRN PRN Reason: NASAL CONGESTION - Objective Vital Signs: Vital Signs Temperature 98.2 F 04/29/19 08:00 Pulse Rate 78 04/29/19 08:00 Respiratory Rate 22 H 04/29/19 08:00 Blood Pressure 119/56 L 04/29/19 08:00 O2 Sat by Pulse Oximetry (%) 95 04/29/19 09:00 Constitutional: Yes: Calm Eyes: Yes: Conjunctiva Clear HENT: Yes: Atraumatic Neck: Yes: Supple Cardiovascular: Yes: S1, S2 Respiratory: Yes: CTA Bilaterally Gastrointestinal: Yes: Normal Bowel Sounds, Soft Genitourinary: Yes: WNL Musculoskeletal: Yes: WNL Edema: Yes Edema: LLE: Trace, RLE: Trace Neurological: Yes: Oriented Psychiatric: Yes: Oriented Labs: CBC, BMP 04/29/19 05:40 04/29/19 05:40 Problem List - Problems (1) NOVA (acute kidney injury) Code(s): N17.9 - ACUTE KIDNEY FAILURE, UNSPECIFIED (2) ARF (acute renal failure) Code(s): N17.9 - ACUTE KIDNEY FAILURE, UNSPECIFIED (3) Afib Code(s): I48.91 - UNSPECIFIED ATRIAL FIBRILLATION Qualifiers: Atrial fibrillation type: paroxysmal Qualified Code(s): I48.0 - Paroxysmal atrial fibrillation Assessment/Plan Current Medications Generic Name Dose Route Start Last Admin Trade Name Freq PRN Reason Stop Dose Admin Amino Acids 30 ml 04/28/19 17:30 04/29/19 08:30 Prosource No Carb Liquid Pkt PO 30 ml BID@0800,1730 [facility] Administration Apixaban 5 mg 04/29/19 10:00 04/29/19 11:04 Eliquis - PO 5 mg BID [facility] Administration Budesonide/Formoterol Fumarate 2 puff 04/29/19 10:00 04/29/19 11:09 Symbicort 80/4.5mcg - IH Not Given BID [facility] Meropenem 500 mg/ Dextrose 100 mls @ 200 mls/hr 04/29/19 10:00 04/29/19 11:05 IVPB 200 mls/hr Q8H-IV [facility] Administration Insulin Aspart 1 vial 04/29/19 11:00 04/29/19 11:31 Novolog Vial Sliding Scale - SQ 2 units ACHS [facility] Administration Protocol Magnesium Oxide 400 mg 04/27/19 22:00 04/29/19 11:04 Mag-Ox - PO 400 mg BID [facility] Administration Morphine Sulfate 2 mg 04/29/19 09:33 Morphine Sulfate IVPUSH Q3H PRN PAIN LEVEL 1-5 Nystatin 1 applic 04/29/19 10:00 04/29/19 11:32 Mycostatin Cream - TP Not Given BID [facility] Pantoprazole Sodium 40 mg 04/29/19 10:00 04/29/19 11:05 Protonix - PO 40 mg DAILY [facility] Administration Polyethylene Glycol 17 gm 04/29/19 10:00 04/29/19 11:05 Miralax (For Daily Use) - PO 17 grams DAILY [facility] Administration Sodium Chloride 2 spray 04/28/19 23:36 [place] Nasal [place] - NS BID PRN NASAL CONGESTION Impression 1. NOVA 2. hyperkalemia 3. obesity 4. DM 5. a-fib 6. HTN 7. chronic lower extremity ulcers 8. gastritis 9. sepsis 10. hyperglycemia 11. metabolic acidosis 12. 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
--- NOTE | 2019-04-29 16:14 | PN ---
Progress Note (short form) - Note Progress Note: alert reports her legs hurt Vital Signs Period Temp Pulse Resp BP Sys/Callahan Pulse Ox Last 24 Hr 98.2 F-98.7 F 65-84 20-22 102-119/56-68 95-95 cor-rrr lungs clear abd soft,nt ext multile bilateral leg ulcers, clean no purulence +bleeding intermittently CBC, BMP 04/29/19 05:40 04/29/19 05:40 Microbiology 04/27/19 11:00 Toe - Left Hallux Gram Stain - Final 04/27/19 11:00 Toe - Left Hallux Wound Culture - Final NO GROWTH OF AEROBIC ORGANISMS AFTER 48 HOURS INCUBATION 04/23/19 22:35 Blood - Peripheral Venous Blood Culture - Final NO GROWTH AFTER 5 DAYS INCUBATION 04/23/19 22:35 Blood - Peripheral Venous Blood Culture - Final NO GROWTH AFTER 5 DAYS INCUBATION 04/24/19 12:20 Leg - Right Lower Gram Stain - Final 04/24/19 12:20 Leg - Right Lower Wound Culture - Preliminary Pseudomonas Aeruginosa Non Lactose Fermenting Gnb Alcaligenes Faecalis Escherichia Coli Enterococcus Faecalis Diphtheroid/Corynebacterium Non Lactose Fermenting Gnb#2 04/24/19 00:45 Urine - Urine Johnson Urine Culture - Final NO GROWTH OBTAINED a/p sepsis-levophed off suspected source is leg ulcers- denies any kind of wound care f/u as outpt now legs are clean no drainage or odor some drainage from the toes acute renal failure improving diabetes chronic leg ulcers- penicillin allergy -reports mouth swelling contact isolation continue meropenem day #6- would complete 7 days - she needs wound care after discharge- have suggested SNF for shortterm rehab to help with wound care but she is not interested please call back if needed Problem List - Problems (1) Sepsis Code(s): A41.9 - SEPSIS, UNSPECIFIED ORGANISM (2) ARF (acute renal failure) Code(s): N17.9 - ACUTE KIDNEY FAILURE, UNSPECIFIED (3) Bilateral leg ulcer Code(s): L97.919 - NON-PRS CHRONIC ULC UNSP PRT OF R LOW LEG W UNSP SEVERITY; L97.929 - NON-PRS CHRONIC ULC UNSP PRT OF L LOW LEG W UNSP SEVERITY Qualifiers: Non-pressure ulcer stage: limited to breakdown of skin Qualified Code(s): L97.911 - Non-pressure chronic ulcer of unspecified part of right lower leg limited to breakdown of skin; L97.921 - Non-pressure chronic ulcer of unspecified part of left lower leg limited to breakdown of skin (4) DM2 (diabetes mellitus, type 2) Code(s): E11.9 - TYPE 2 DIABETES MELLITUS WITHOUT COMPLICATIONS Qualifiers: Diabetes mellitus terminologist insulin use: with chcf use Diabetes mellitus complication detail: with other circulatory complications (5) Infected pressure ulcer Code(s): L89.90 - PRESSURE ULCER OF UNSPECIFIED SITE, UNSPECIFIED STAGE; L08.9 - LOCAL INFECTION OF THE SKIN AND SUBCUTANEOUS TISSUE, UNSP (6) UTI (urinary tract infection) Code(s): N39.0 - URINARY TRACT INFECTION, SITE NOT SPECIFIED
[2019-04-29] MEDS: NAPH,MB-DB/K PH,MBDB POWDER PACKET PO SCH ×2 (17:22→21:32)
[2019-04-29] MEDS: MORPHINE SULFATE 2 MG/ML VIAL IVPUSH PRN (18:58)
[2019-04-30] MEDS: NYSTATIN 100,000 UNIT/GM TOPICAL CREAM 15 GM TUBE TP SCH ×3 (00:29→22:23)
[2019-04-30] MEDS: BUDESONIDE/FORMETEROL FUMARATE 80/4.5 mcg INHALER IH SCH ×3 (00:30→22:23)
[2019-04-30] MEDS ORDERED: DEXTROSE 5%-WATER 100 ML IVPB ONE ×3 (00:58→17:12)
[2019-04-30] MEDS ORDERED: MEROPENEM 500 MG VIAL (RESTRICTED TO ID) IVPB ONE ×3 (00:58→17:12)
[2019-04-30] MEDS: MEROPENEM 500 MG in DEXTROSE 5%-WATER 100 ML IVPB SCH ×3 (01:26→18:04)
[2019-04-30] MEDS: INSULIN SLIDING SCALE (NOVOLOG) 1 VIAL SQ SCH ×4 (06:02→21:56)
[2019-04-30 09:21] LABS: HEMATOCRIT 32.5 % (32.4-45.2); HEMOGLOBIN 10.5 GM/dL (10.7-15.3); MCH 28.5 pg (25.7-33.7); MCHC 32.4 g/dl (32.0-36.0); MEAN CELL VOLUME 87.9 fl (80-96); MEAN PLT VOLUME 9.2 fl (7.5-11.1); PLATELET COUNT 310 K/MM3 (134-434); RBC 3.69 M/mm3 (3.60-5.2); RDW 14.6 % (11.6-15.6); WHITE BLOOD COUNT 15.2 K/mm3 (4.0-10.0)
[2019-04-30 09:52] LABS: ALBUMIN 2.4 g/dl (3.4-5.0); BILIRUBIN,TOTAL 0.3 mg/dL (0.2-1); BLOOD UREA NITROGEN 15.2 mg/dL (7-18); CALCIUM 8.3 mg/dL (8.5-10.1); CREATININE 0.9 mg/dL (0.55-1.3); POTASSIUM 3.7 mmol/L (3.5-5.1); TOT PROT 6.1 g/dl (6.4-8.2)
[2019-04-30] MEDS: AMINO ACIDS/PROTEIN HYDROLYS 30 ML LIQUID.PKT PO SCH ×2 (11:25→17:23)
[2019-04-30] MEDS: ACETAMINOPHEN 325 MG TABLET (FP) PO PRN (11:25)
[2019-04-30] MEDS: NAPH,MB-DB/K PH,MBDB POWDER PACKET PO SCH ×2 (11:26→21:56)
[2019-04-30] MEDS: MAGNESIUM OXIDE 400 MG TABLET (FP) PO SCH ×2 (11:26→21:55)
[2019-04-30] MEDS: APIXABAN 5 MG TABLET PO SCH ×2 (11:27→21:55)
[2019-04-30] MEDS: POLYETHYLENE GLYCOL 3350 119 GM BTL PO SCH (11:27)
[2019-04-30] MEDS: PANTOPRAZOLE 40 MG TABLET PO SCH (11:27)
[2019-04-30] MEDS: MORPHINE SULFATE 2 MG/ML VIAL IVPUSH PRN ×2 (12:10→16:28)
--- NOTE | 2019-04-30 12:34 | PN ---
Progress Note, Physician Chief Complaint: patient seen and examined and complains her legs hurt on iv meropeenem - Current Medication List Current Medications: Active Medications Acetaminophen (Tylenol -) 650 mg PO Q6H PRN PRN Reason: Fever Or Pain Last Admin: 04/30/19 11:25 Dose: 650 mg Amino Acids (Prosource No Carb Liquid Pkt) 30 ml PO BID@0800,1730 [facility] Last Admin: 04/30/19 11:25 Dose: 30 ml Apixaban (Eliquis -) 5 mg PO BID [facility] Last Admin: 04/30/19 11:27 Dose: 5 mg Budesonide/Formoterol Fumarate (Symbicort 80/4.5mcg -) 2 puff IH BID [facility] Last Admin: 04/30/19 11:40 Dose: Not Given Meropenem 500 mg/ Dextrose 100 mls @ 200 mls/hr IVPB Q8H-IV [facility] Last Admin: 04/30/19 11:25 Dose: 200 mls/hr Insulin Aspart (Novolog Vial Sliding Scale -) 1 vial SQ ACHS [facility]; Protocol Last Admin: 04/30/19 11:39 Dose: 2 units Magnesium Oxide (Mag-Ox -) 400 mg PO BID [facility] Last Admin: 04/30/19 11:26 Dose: 400 mg Morphine Sulfate (Morphine Sulfate) 2 mg IVPUSH Q3H PRN PRN Reason: PAIN LEVEL 1-5 Last Admin: 04/30/19 12:10 Dose: 2 mg Nystatin (Mycostatin Cream -) 1 applic TP BID [facility] Last Admin: 04/30/19 00:29 Dose: Not Given Pantoprazole Sodium (Protonix -) 40 mg PO DAILY [facility] Last Admin: 04/30/19 11:27 Dose: 40 mg Polyethylene Glycol (Miralax (For Daily Use) -) 17 gm PO DAILY [facility] Last Admin: 04/30/19 11:27 Dose: 17 grams Potassium Phos/Sodium Phos (Phos-Nak Packet -) 1 packet PO BID [facility] Last Admin: 04/30/19 11:26 Dose: 1 packet Sodium Chloride ([place] Nasal [place] -) 2 spray NS BID PRN PRN Reason: NASAL CONGESTION - Objective Vital Signs: Vital Signs Temperature 98.3 F 04/30/19 06:00 Pulse Rate 94 H 04/30/19 06:00 Respiratory Rate 20 04/30/19 06:00 Blood Pressure 124/72 04/30/19 06:00 O2 Sat by Pulse Oximetry (%) 95 04/29/19 09:00 Constitutional: Yes: Mild Distress Cardiovascular: Yes: Regular Rate and Rhythm, S1, S2 Respiratory: Yes: CTA Bilaterally, Diminished (atbases) Gastrointestinal: Yes: Normal Bowel Sounds, Soft, Abdomen, Obese Extremities: Yes: Other (multiple ulcers on the legs noted open and bleeding no foul odour chronic venous stasis changes) Edema: Yes Labs: CBC, BMP 04/30/19 08:35 04/30/19 08:35 Problem List - Problems (1) NOVA (acute kidney injury) Assessment/Plan: renal function improved s/p HD now renal function is normal dialysis catheter removed Code(s): N17.9 - ACUTE KIDNEY FAILURE, UNSPECIFIED (2) Sepsis Assessment/Plan: secondary to LE wounds IV abx leukocytosis imrpoved and off pressors Microbiology 04/24/19 12:20 Leg - Right Lower Gram Stain - Final 04/24/19 12:20 Leg - Right Lower Wound Culture - Preliminary Non Lactose Fermenting Gnb Non Lactose Fermenting Gnb#2 Non Lactose Fermenting Gnb#3 Lactose Fermenting Neg Bacilli Group D Strep Or Entero Coccus PCN allergy on meropenem day 7 today vscular follow up for leg wounds today Code(s): A41.9 - SEPSIS, UNSPECIFIED ORGANISM (3) DM2 (diabetes mellitus, type 2) Assessment/Plan: sliding scale bgm monitoring hga1c noted to be 8.4 Code(s): E11.9 - TYPE 2 DIABETES MELLITUS WITHOUT COMPLICATIONS Qualifiers: 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
[2019-04-30 13:30] LABS: MAGNESIUM 1.4 mg/dL (1.8-2.4); PHOSPHOROUS 1.8 mg/dL (2.5-4.9)
[2019-04-30] MEDS ORDERED: POTASSIUM CHLORIDE TABS 20 MEQ TABLET.ER (FP) PO ONE (16:10)
[2019-04-30] MEDS ORDERED: MAGNESIUM SULF 50% (8.12 MEQ/2 ML-1 GM VIAL) IVPB ONE (16:10)
--- NOTE | 2019-04-30 16:10 | PN ---
Progress Note, Physician History of Present Illness: Pt seen and examined at bedside. She is awake and alert. She complains of lower ext edema. - Current Medication List Current Medications: Active Medications Acetaminophen (Tylenol -) 650 mg PO Q6H PRN PRN Reason: Fever Or Pain Last Admin: 04/30/19 11:25 Dose: 650 mg Amino Acids (Prosource No Carb Liquid Pkt) 30 ml PO BID@0800,1730 [facility] Last Admin: 04/30/19 11:25 Dose: 30 ml Apixaban (Eliquis -) 5 mg PO BID [facility] Last Admin: 04/30/19 11:27 Dose: 5 mg Budesonide/Formoterol Fumarate (Symbicort 80/4.5mcg -) 2 puff IH BID [facility] Last Admin: 04/30/19 11:40 Dose: Not Given Meropenem 500 mg/ Dextrose 100 mls @ 200 mls/hr IVPB Q8H-IV [facility] Last Admin: 04/30/19 11:25 Dose: 200 mls/hr Insulin Aspart (Novolog Vial Sliding Scale -) 1 vial SQ ACHS [facility]; Protocol Last Admin: 04/30/19 11:39 Dose: 2 units Magnesium Oxide (Mag-Ox -) 400 mg PO BID [facility] Last Admin: 04/30/19 11:26 Dose: 400 mg Morphine Sulfate (Morphine Sulfate) 2 mg IVPUSH Q3H PRN PRN Reason: PAIN LEVEL 1-5 Last Admin: 04/30/19 12:10 Dose: 2 mg Nystatin (Mycostatin Cream -) 1 applic TP BID [facility] Last Admin: 04/30/19 12:58 Dose: Not Given Pantoprazole Sodium (Protonix -) 40 mg PO DAILY [facility] Last Admin: 04/30/19 11:27 Dose: 40 mg Polyethylene Glycol (Miralax (For Daily Use) -) 17 gm PO DAILY [facility] Last Admin: 04/30/19 11:27 Dose: 17 grams Potassium Phos/Sodium Phos (Phos-Nak Packet -) 1 packet PO BID [facility] Last Admin: 04/30/19 11:26 Dose: 1 packet Sodium Chloride ([place] Nasal [place] -) 2 spray NS BID PRN PRN Reason: NASAL CONGESTION - Objective Vital Signs: Vital Signs Temperature 97.8 F 04/30/19 14:00 Pulse Rate 101 H 04/30/19 14:00 Respiratory Rate 20 04/30/19 14:00 Blood Pressure 117/72 04/30/19 14:00 O2 Sat by Pulse Oximetry (%) 98 04/30/19 09:00 Constitutional: Yes: Calm Eyes: Yes: Conjunctiva Clear HENT: Yes: Atraumatic Neck: Yes: Supple Cardiovascular: Yes: S1, S2 Respiratory: Yes: CTA Bilaterally Gastrointestinal: Yes: Soft, Abdomen, Obese Genitourinary: Yes: WNL Edema: Yes Edema: LLE: 2+, RLE: 2+ Wound/Incision: Yes: Open to air Neurological: Yes: Oriented Psychiatric: Yes: Oriented Labs: CBC, BMP 04/30/19 08:35 04/30/19 08:35 Problem List - Problems (1) NOVA (acute kidney injury) Code(s): N17.9 - ACUTE KIDNEY FAILURE, UNSPECIFIED (2) ARF (acute renal failure) Code(s): N17.9 - ACUTE KIDNEY FAILURE, UNSPECIFIED (3) Afib Code(s): I48.91 - UNSPECIFIED ATRIAL FIBRILLATION Qualifiers: Atrial fibrillation type: paroxysmal Qualified Code(s): I48.0 - Paroxysmal atrial fibrillation Assessment/Plan Current Medications Generic Name Dose Route Start Last Admin Trade Name Freq PRN Reason Stop Dose Admin Acetaminophen 650 mg 04/29/19 18:13 04/30/19 11:25 Tylenol - PO 650 mg Q6H PRN Administration Fever Or Pain Amino Acids 30 ml 04/28/19 17:30 04/30/19 11:25 Prosource No Carb Liquid Pkt PO 30 ml BID@0800,1730 [facility] Administration Apixaban 5 mg 04/29/19 10:00 04/30/19 11:27 Eliquis - PO 5 mg BID [facility] Administration Budesonide/Formoterol Fumarate 2 puff 04/29/19 10:00 04/30/19 11:40 Symbicort 80/4.5mcg - IH Not Given BID [facility] Meropenem 500 mg/ Dextrose 100 mls @ 200 mls/hr 04/29/19 10:00 04/30/19 11:25 IVPB 200 mls/hr Q8H-IV [facility] Administration Insulin Aspart 1 vial 04/29/19 11:00 04/30/19 11:39 Novolog Vial Sliding Scale - SQ 2 units ACHS [facility] Administration Protocol Magnesium Oxide 400 mg 04/27/19 22:00 04/30/19 11:26 Mag-Ox - PO 400 mg BID [facility] Administration Morphine Sulfate 2 mg 04/29/19 09:33 04/30/19 12:10 Morphine Sulfate IVPUSH 2 mg Q3H PRN Administration PAIN LEVEL 1-5 Nystatin 1 applic 04/29/19 10:00 04/30/19 12:58 Mycostatin Cream - TP Not Given BID [facility] Pantoprazole Sodium 40 mg 04/29/19 10:00 04/30/19 11:27 Protonix - PO 40 mg DAILY [facility] Administration Polyethylene Glycol 17 gm 04/29/19 10:00 04/30/19 11:27 Miralax (For Daily Use) - PO 17 grams DAILY [facility] Administration Potassium Phos/Sodium Phos 1 packet 04/29/19 12:30 04/30/19 11:26 Phos-Nak Packet - PO 1 packet BID [facility] Administration Sodium Chloride 2 spray 04/28/19 23:36 [place] Nasal [place] - NS BID PRN NASAL CONGESTION Impression 1. NOVA 2. hyperkalemia 3. obesity 4. DM 5. a-fib 6. HTN 7. chronic lower extremity ulcers 8. gastritis 9. sepsis 10. hyperglycemia 11. metabolic acidosis 12. peripheral vascular disease Plan - will give lasix - monitor renal function - monitor lytes - cont wound care - abx for sepsis
--- NOTE | 2019-04-30 16:26 | PN ---
Progress Note (short form) - Note Progress Note: [facility] Pt seen in the ICU during her stay. Pt seen today bedside. BL lower extremity ulcers that are weeping. Leg elevation. Cont alginate - but please place priscila for compression. Pt feels better. Wesley Calderon DO
[2019-04-30] MEDS: FUROSEMIDE 40 MG TABLET (FP) PO SCH (16:27)
[2019-05-01] MEDS ORDERED: DEXTROSE 5%-WATER 100 ML IVPB ONE ×2 (01:04→09:11)
[2019-05-01] MEDS ORDERED: MEROPENEM 500 MG VIAL (RESTRICTED TO ID) IVPB ONE ×2 (01:04→09:11)
[2019-05-01] MEDS: MEROPENEM 500 MG in DEXTROSE 5%-WATER 100 ML IVPB SCH ×2 (01:43→10:18)
[2019-05-01] MEDS: INSULIN SLIDING SCALE (NOVOLOG) 1 VIAL SQ SCH ×4 (06:04→21:47)
[2019-05-01 09:28] LABS: ALBUMIN 2.1 g/dl (3.4-5.0); BILIRUBIN,TOTAL 0.3 mg/dL (0.2-1); BLOOD UREA NITROGEN 17.9 mg/dL (7-18); CALCIUM 8.4 mg/dL (8.5-10.1); CREATININE 0.9 mg/dL (0.55-1.3); MAGNESIUM 1.6 mg/dL (1.8-2.4); PHOSPHOROUS 2.4 mg/dL (2.5-4.9); POTASSIUM 4.1 mmol/L (3.5-5.1); TOT PROT 5.7 g/dl (6.4-8.2)
[2019-05-01] MEDS: MORPHINE SULFATE 2 MG/ML VIAL IVPUSH PRN ×2 (10:17→13:27)
[2019-05-01] MEDS: AMINO ACIDS/PROTEIN HYDROLYS 30 ML LIQUID.PKT PO SCH ×2 (10:19→17:09)
[2019-05-01] MEDS: NAPH,MB-DB/K PH,MBDB POWDER PACKET PO SCH ×2 (10:19→21:48)
[2019-05-01] MEDS: PANTOPRAZOLE 40 MG TABLET PO SCH (10:19)
[2019-05-01] MEDS: FUROSEMIDE 40 MG TABLET (FP) PO SCH (10:19)
[2019-05-01] MEDS: APIXABAN 5 MG TABLET PO SCH ×2 (10:19→21:46)
[2019-05-01] MEDS: MAGNESIUM OXIDE 400 MG TABLET (FP) PO SCH ×2 (10:19→21:46)
[2019-05-01] MEDS: NYSTATIN 100,000 UNIT/GM TOPICAL CREAM 15 GM TUBE TP SCH ×2 (10:20→21:45)
[2019-05-01] MEDS: BUDESONIDE/FORMETEROL FUMARATE 80/4.5 mcg INHALER IH SCH ×2 (10:21→21:48)
[2019-05-01] MEDS: POLYETHYLENE GLYCOL 3350 119 GM BTL PO SCH (10:30)
--- NOTE | 2019-05-01 11:39 | PN ---
Progress Note (short form) - Note Progress Note: Resting in NAD. No acute events overnight. Denies CP or SOB. = Intake & Output 04/28/19 04/29/19 04/30/19 05/01/19 23:59 23:59 23:59 23:59 Intake Total 1898 978 550 100 Output Total 453 800 Balance 1445 178 550 100 Weight 259 lb 3.2 oz Last Vital Signs Temp Pulse Resp BP Pulse Ox 98.1 F 100 H 20 117/71 100 05/01/19 10:00 05/01/19 10:00 05/01/19 10:00 05/01/19 10:00 05/01/19 09:00 Active Medications Acetaminophen (Tylenol -) 650 mg PO Q6H PRN PRN Reason: Fever Or Pain Last Admin: 04/30/19 11:25 Dose: 650 mg Amino Acids (Prosource No Carb Liquid Pkt) 30 ml PO BID@0800,1730 [facility] Last Admin: 05/01/19 10:19 Dose: 30 ml Apixaban (Eliquis -) 5 mg PO BID [facility] Last Admin: 05/01/19 10:19 Dose: 5 mg Budesonide/Formoterol Fumarate (Symbicort 80/4.5mcg -) 2 puff IH BID [facility] Last Admin: 05/01/19 10:21 Dose: Not Given Furosemide (Lasix -) 40 mg PO DAILY [facility] Last Admin: 05/01/19 10:19 Dose: 40 mg Meropenem 500 mg/ Dextrose 100 mls @ 200 mls/hr IVPB Q8H-IV [facility] Last Admin: 05/01/19 10:18 Dose: 200 mls/hr Insulin Aspart (Novolog Vial Sliding Scale -) 1 vial SQ ACHS [facility]; Protocol Last Admin: 05/01/19 11:30 Dose: 2 units Magnesium Oxide (Mag-Ox -) 400 mg PO BID [facility] Last Admin: 05/01/19 10:19 Dose: 400 mg Morphine Sulfate (Morphine Sulfate) 2 mg IVPUSH Q3H PRN PRN Reason: PAIN LEVEL 1-5 Last Admin: 05/01/19 10:17 Dose: 2 mg Nystatin (Mycostatin Cream -) 1 applic TP BID [facility] Last Admin: 05/01/19 10:20 Dose: Not Given Pantoprazole Sodium (Protonix -) 40 mg PO DAILY [facility] Last Admin: 05/01/19 10:19 Dose: 40 mg Polyethylene Glycol (Miralax (For Daily Use) -) 17 gm PO DAILY [facility] Last Admin: 05/01/19 10:30 Dose: Not Given Potassium Phos/Sodium Phos (Phos-Nak Packet -) 1 packet PO BID [facility] Last Admin: 05/01/19 10:19 Dose: 1 packet Sodium Chloride ([place] Nasal [place] -) 2 spray NS BID PRN PRN Reason: NASAL CONGESTION HEENT: PERRL, NCAT, EOMI PULM: diminished bases CV: regular, no m/r/g appreciated ABD: obese, soft, +BS EXT: severe venous stasis, erythema, wounds bilateral carlin and multiple toes, excoriation, dressed Neuro: non-focal Laboratory Results - last 24 hr 04/30/19 04/30/19 04/30/19 08:35 11:37 16:38 Sodium 141 Potassium 3.7 Chloride 111 H Carbon Dioxide 21 Anion Gap 9 BUN 15.2 Creatinine 0.9 Est GFR (CKD-EPI)AfAm 83.43 Est GFR (CKD-EPI)NonAf 71.98 POC Glucometer 210 257 Random Glucose 172 H Calcium 8.3 L Phosphorus 1.8 L Magnesium 1.4 L Total Bilirubin 0.3 AST 8 L ALT 11 L Alkaline Phosphatase 99 Total Protein 6.1 L Albumin 2.4 L 04/30/19 05/01/19 05/01/19 21:50 05:32 08:20 Sodium 141 Potassium 4.1 Chloride 109 H Carbon Dioxide 23 Anion Gap 8 BUN 17.9 Creatinine 0.9 Est GFR (CKD-EPI)AfAm 83.43 Est GFR (CKD-EPI)NonAf 71.98 POC Glucometer 219 165 Random Glucose 173 H Calcium 8.4 L Phosphorus 2.4 L Magnesium 1.6 L Total Bilirubin 0.3 AST 7 L ALT 11 L Alkaline Phosphatase 94 Total Protein 5.7 L Albumin 2.1 L 05/01/19 11:25 Sodium Potassium Chloride Carbon Dioxide Anion Gap BUN Creatinine Est GFR (CKD-EPI)AfAm Est GFR (CKD-EPI)NonAf POC Glucometer 239 Random Glucose Calcium Phosphorus Magnesium Total Bilirubin AST ALT Alkaline Phosphatase Total Protein Albumin IMP: Resolved Septic Shock Acute on CKD DM PAfib Chronic venous stasis wounds UTI Metabolic encephalopathy PLAN: ABX per ID Local wound care O2 as needed to maintain saturation Glycemic control Eliquis PO as tolerated Dr Andre
--- NOTE | 2019-05-01 14:48 | PN ---
Progress Note, Physician - Current Medication List Current Medications: Active Medications Acetaminophen (Tylenol -) 650 mg PO Q6H PRN PRN Reason: Fever Or Pain Last Admin: 04/30/19 11:25 Dose: 650 mg Amino Acids (Prosource No Carb Liquid Pkt) 30 ml PO BID@0800,1730 [facility] Last Admin: 05/01/19 10:19 Dose: 30 ml Apixaban (Eliquis -) 5 mg PO BID [facility] Last Admin: 05/01/19 10:19 Dose: 5 mg Budesonide/Formoterol Fumarate (Symbicort 80/4.5mcg -) 2 puff IH BID [facility] Last Admin: 05/01/19 10:21 Dose: Not Given Furosemide (Lasix -) 40 mg PO DAILY [facility] Last Admin: 05/01/19 10:19 Dose: 40 mg Meropenem 500 mg/ Dextrose 100 mls @ 200 mls/hr IVPB Q8H-IV [facility] Last Admin: 05/01/19 10:18 Dose: 200 mls/hr Insulin Aspart (Novolog Vial Sliding Scale -) 1 vial SQ ACHS [facility]; Protocol Last Admin: 05/01/19 11:30 Dose: 2 units Magnesium Oxide (Mag-Ox -) 400 mg PO BID [facility] Last Admin: 05/01/19 10:19 Dose: 400 mg Morphine Sulfate (Morphine Sulfate) 2 mg IVPUSH Q3H PRN PRN Reason: PAIN LEVEL 1-5 Last Admin: 05/01/19 13:27 Dose: 2 mg Nystatin (Mycostatin Cream -) 1 applic TP BID [facility] Last Admin: 05/01/19 10:20 Dose: Not Given Pantoprazole Sodium (Protonix -) 40 mg PO DAILY [facility] Last Admin: 05/01/19 10:19 Dose: 40 mg Polyethylene Glycol (Miralax (For Daily Use) -) 17 gm PO DAILY [facility] Last Admin: 05/01/19 10:30 Dose: Not Given Potassium Phos/Sodium Phos (Phos-Nak Packet -) 1 packet PO BID [facility] Last Admin: 05/01/19 10:19 Dose: 1 packet Sodium Chloride ([place] Nasal [place] -) 2 spray NS BID PRN PRN Reason: NASAL CONGESTION - Objective Vital Signs: Vital Signs Temperature 98.1 F 05/01/19 10:00 Pulse Rate 100 H 12/06/19 10:00 Respiratory Rate 20 05/01/19 10:00 Blood Pressure 117/71 05/01/19 10:00 O2 Sat by Pulse Oximetry (%) 100 05/01/19 09:00 Labs: CBC, BMP 04/30/19 08:35 05/01/19 08:20 Problem List - Problems (1) NOVA (acute kidney injury) Code(s): N17.9 - ACUTE KIDNEY FAILURE, UNSPECIFIED (2) Sepsis Code(s): A41.9 - SEPSIS, UNSPECIFIED ORGANISM (3) DM2 (diabetes mellitus, type 2) Code(s): E11.9 - TYPE 2 DIABETES MELLITUS WITHOUT COMPLICATIONS 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
--- NOTE | 2019-05-01 15:03 | PN ---
Progress Note, Physician History of Present Illness: Pt seen and examined at bedside. She is awake and alert. She denies shortness of breath. She complains of lower ext edema. - Current Medication List Current Medications: Active Medications Acetaminophen (Tylenol -) 650 mg PO Q6H PRN PRN Reason: Fever Or Pain Last Admin: 04/30/19 11:25 Dose: 650 mg Amino Acids (Prosource No Carb Liquid Pkt) 30 ml PO BID@0800,1730 [facility] Last Admin: 05/01/19 10:19 Dose: 30 ml Apixaban (Eliquis -) 5 mg PO BID [facility] Last Admin: 05/01/19 10:19 Dose: 5 mg Budesonide/Formoterol Fumarate (Symbicort 80/4.5mcg -) 2 puff IH BID [facility] Last Admin: 05/01/19 10:21 Dose: Not Given Furosemide (Lasix -) 40 mg PO DAILY [facility] Last Admin: 05/01/19 10:19 Dose: 40 mg Meropenem 500 mg/ Dextrose 100 mls @ 200 mls/hr IVPB Q8H-IV [facility] Last Admin: 05/01/19 10:18 Dose: 200 mls/hr Insulin Aspart (Novolog Vial Sliding Scale -) 1 vial SQ ACHS [facility]; Protocol Last Admin: 05/01/19 11:30 Dose: 2 units Magnesium Oxide (Mag-Ox -) 400 mg PO BID [facility] Last Admin: 05/01/19 10:19 Dose: 400 mg Morphine Sulfate (Morphine Sulfate) 2 mg IVPUSH Q3H PRN PRN Reason: PAIN LEVEL 1-5 Last Admin: 05/01/19 13:27 Dose: 2 mg Nystatin (Mycostatin Cream -) 1 applic TP BID [facility] Last Admin: 05/01/19 10:20 Dose: Not Given Pantoprazole Sodium (Protonix -) 40 mg PO DAILY [facility] Last Admin: 05/01/19 10:19 Dose: 40 mg Polyethylene Glycol (Miralax (For Daily Use) -) 17 gm PO DAILY [facility] Last Admin: 05/01/19 10:30 Dose: Not Given Potassium Phos/Sodium Phos (Phos-Nak Packet -) 1 packet PO BID [facility] Last Admin: 05/01/19 10:19 Dose: 1 packet Sodium Chloride ([place] Nasal [place] -) 2 spray NS BID PRN PRN Reason: NASAL CONGESTION - Objective Vital Signs: Vital Signs Temperature 98.1 F 05/01/19 10:00 Pulse Rate 100 H 05/01/19 10:00 Respiratory Rate 20 05/01/19 10:00 Blood Pressure 117/71 05/01/19 10:00 O2 Sat by Pulse Oximetry (%) 100 05/01/19 09:00 Constitutional: Yes: Calm Eyes: Yes: Conjunctiva Clear HENT: Yes: Atraumatic Neck: Yes: Supple Cardiovascular: Yes: S1, S2 Respiratory: Yes: CTA Bilaterally Gastrointestinal: Yes: WNL Genitourinary: Yes: WNL Edema: Yes Edema: LLE: 1+, RLE: 1+ Neurological: Yes: Oriented Psychiatric: Yes: Oriented Labs: CBC, BMP 04/30/19 08:35 05/01/19 08:20 Problem List - Problems (1) NOVA (acute kidney injury) Code(s): N17.9 - ACUTE KIDNEY FAILURE, UNSPECIFIED (2) ARF (acute renal failure) Code(s): N17.9 - ACUTE KIDNEY FAILURE, UNSPECIFIED (3) Afib Code(s): I48.91 - UNSPECIFIED ATRIAL FIBRILLATION Qualifiers: Atrial fibrillation type: paroxysmal Qualified Code(s): I48.0 - Paroxysmal atrial fibrillation Assessment/Plan Current Medications Generic Name Dose Route Start Last Admin Trade Name Freq PRN Reason Stop Dose Admin Acetaminophen 650 mg 04/29/19 18:13 04/30/19 11:25 Tylenol - PO 650 mg Q6H PRN Administration Fever Or Pain Amino Acids 30 ml 04/28/19 17:30 05/01/19 10:19 Prosource No Carb Liquid Pkt PO 30 ml BID@0800,1730 [facility] Administration Apixaban 5 mg 04/29/19 10:00 05/01/19 10:19 Eliquis - PO 5 mg BID [facility] Administration Budesonide/Formoterol Fumarate 2 puff 04/29/19 10:00 05/01/19 10:21 Symbicort 80/4.5mcg - IH Not Given BID [facility] Furosemide 40 mg 04/30/19 16:15 05/01/19 10:19 Lasix - PO 40 mg DAILY [facility] Administration Meropenem 500 mg/ Dextrose 100 mls @ 200 mls/hr 04/29/19 10:00 05/01/19 10:18 IVPB 200 mls/hr Q8H-IV [facility] Administration Insulin Aspart 1 vial 04/29/19 11:00 05/01/19 11:30 Novolog Vial Sliding Scale - SQ 2 units ACHS [facility] Administration Protocol Magnesium Oxide 400 mg 04/27/19 22:00 05/01/19 10:19 Mag-Ox - PO 400 mg BID [facility] Administration Morphine Sulfate 2 mg 04/29/19 09:33 05/01/19 13:27 Morphine Sulfate IVPUSH 2 mg Q3H PRN Administration PAIN LEVEL 1-5 Nystatin 1 applic 04/29/19 10:00 05/01/19 10:20 Mycostatin Cream - TP Not Given BID [facility] Pantoprazole Sodium 40 mg 04/29/19 10:00 05/01/19 10:19 Protonix - PO 40 mg DAILY [facility] Administration Polyethylene Glycol 17 gm 04/29/19 10:00 05/01/19 10:30 Miralax (For Daily Use) - PO Not Given DAILY [facility] Potassium Phos/Sodium Phos 1 packet 04/29/19 12:30 05/01/19 10:19 Phos-Nak Packet - PO 1 packet BID [facility] Administration Sodium Chloride 2 spray 04/28/19 23:36 [place] Nasal [place] - NS BID PRN NASAL CONGESTION Impression 1. NOVA 2. hyperkalemia 3. obesity 4. DM 5. a-fib 6. HTN 7. chronic lower extremity ulcers 8. gastritis 9. sepsis 10. hyperglycemia 11. metabolic acidosis 12. peripheral vascular disease Plan - cont lasix - will give potassium - monitor renal function - discussed diet with pt - will follow PRN
[2019-05-01] MEDS: ACETAMINOPHEN 325 MG TABLET (FP) PO PRN (17:09)
[2019-05-01] MEDS ORDERED: INSULIN (NOVOLOG) ASPART 100 UNITS/ML 10ML VIAL ONE (20:44)
[2019-05-02] MEDS: INSULIN SLIDING SCALE (NOVOLOG) 1 VIAL SQ SCH ×4 (06:25→21:26)
[2019-05-02] MEDS: MORPHINE SULFATE 2 MG/ML VIAL IVPUSH PRN ×2 (07:03→10:03)
[2019-05-02 09:10] LABS: BASO % 0.5 % (0-2.0); EOS % 2.5 % (0-4.5); HEMATOCRIT 30.6 % (32.4-45.2); LYMPH % 6.6 % (8-40); MCH 28.7 pg (25.7-33.7); MCHC 32.5 g/dl (32.0-36.0); MEAN CELL VOLUME 88.4 fl (80-96); MEAN PLT VOLUME 9.8 fl (7.5-11.1); MONO % 4.6 % (3.8-10.2); NEUT % 85.8 % (42.8-82.8); PLATELET COUNT 337 K/MM3 (134-434); RBC 3.46 M/mm3 (3.60-5.2); RDW 14.6 % (11.6-15.6)
[2019-05-02] MEDS: NAPH,MB-DB/K PH,MBDB POWDER PACKET PO SCH ×2 (10:05→21:20)
[2019-05-02] MEDS: APIXABAN 5 MG TABLET PO SCH ×2 (10:05→21:20)
[2019-05-02] MEDS: PANTOPRAZOLE 40 MG TABLET PO SCH (10:05)
[2019-05-02] MEDS: MAGNESIUM OXIDE 400 MG TABLET (FP) PO SCH ×2 (10:05→21:20)
[2019-05-02] MEDS: AMINO ACIDS/PROTEIN HYDROLYS 30 ML LIQUID.PKT PO SCH ×2 (10:06→16:30)
[2019-05-02] MEDS: FUROSEMIDE 20 MG TABLET (FP) PO SCH (10:06)
[2019-05-02] MEDS: POTASSIUM CHLORIDE TABS 10 MEQ TABLET.ER (FP) PO SCH (10:06)
[2019-05-02] MEDS: POLYETHYLENE GLYCOL 3350 119 GM BTL PO SCH (10:12)
[2019-05-02] MEDS: NYSTATIN 100,000 UNIT/GM TOPICAL CREAM 15 GM TUBE TP SCH ×2 (10:12→21:21)
[2019-05-02] MEDS: BUDESONIDE/FORMETEROL FUMARATE 80/4.5 mcg INHALER IH SCH ×2 (11:23→21:21)
--- NOTE | 2019-05-02 12:00 | PN ---
Progress Note, Physician Chief Complaint: AWAKE ALERT REFUSING SNF PLACEMENT FOR WOUND CARE - Current Medication List Current Medications: Active Medications Acetaminophen (Tylenol -) 650 mg PO Q6H PRN PRN Reason: Fever Or Pain Last Admin: 05/01/19 17:09 Dose: 650 mg Amino Acids (Prosource No Carb Liquid Pkt) 30 ml PO BID@0800,1730 [facility] Last Admin: 05/02/19 10:06 Dose: 30 ml Apixaban (Eliquis -) 5 mg PO BID [facility] Last Admin: 05/02/19 10:05 Dose: 5 mg Budesonide/Formoterol Fumarate (Symbicort 80/4.5mcg -) 2 puff IH BID [facility] Last Admin: 05/02/19 11:23 Dose: 2 puff Furosemide (Lasix -) 20 mg PO DAILY [facility] Last Admin: 05/02/19 10:06 Dose: 20 mg Insulin Aspart (Novolog Vial Sliding Scale -) 1 vial SQ ACHS [facility]; Protocol Last Admin: 05/02/19 11:21 Dose: 2 units Magnesium Oxide (Mag-Ox -) 400 mg PO BID [facility] Last Admin: 05/02/19 10:05 Dose: 400 mg Morphine Sulfate (Morphine Sulfate) 2 mg IVPUSH Q3H PRN PRN Reason: PAIN LEVEL 1-5 Last Admin: 05/02/19 10:03 Dose: 2 mg Nystatin (Mycostatin Cream -) 1 applic TP BID [facility] Last Admin: 05/02/19 10:12 Dose: Not Given Pantoprazole Sodium (Protonix -) 40 mg PO DAILY [facility] Last Admin: 05/02/19 10:05 Dose: 40 mg Polyethylene Glycol (Miralax (For Daily Use) -) 17 gm PO DAILY [facility] Last Admin: 05/02/19 10:12 Dose: Not Given Potassium Chloride ([place] -) 10 meq PO DAILY [facility] Last Admin: 05/02/19 10:06 Dose: 10 meq Potassium Phos/Sodium Phos (Phos-Nak Packet -) 1 packet PO BID [facility] Last Admin: 05/02/19 10:05 Dose: 1 packet Sodium Chloride ([place] Nasal [place] -) 2 spray NS BID PRN PRN Reason: NASAL CONGESTION - Objective Vital Signs: Vital Signs Temperature 98.0 F 05/02/19 09:00 Pulse Rate 95 H 05/02/19 09:00 Respiratory Rate 18 05/02/19 09:00 Blood Pressure 99/55 L 05/02/19 09:00 O2 Sat by Pulse Oximetry (%) 100 05/01/19 21:00 Constitutional: Yes: No Distress Cardiovascular: Yes: Regular Rate and Rhythm Respiratory: Yes: WNL Gastrointestinal: Yes: Soft, Abdomen, Obese Genitourinary: Yes: WNL Musculoskeletal: Yes: Other Extremities: Yes: Deformity Edema: Yes Edema: LLE: 3+, RLE: 3+ Integumentary: Yes: Pressure Ulcer, Rash, Venous Stasis Changes Wound/Incision: Yes: Dressing Dry and Intact, Draining, Excoriated, Unapproximated Neurological: Yes: Loss of Sensation, Numbness, Pre-Existing Deficit, Weakness ...Motor Strength: LLE, RLE Psychiatric: Yes: Other Labs: CBC, BMP 05/02/19 08:30 05/01/19 08:20 Problem List - Problems (1) Diabetes Code(s): E11.9 - TYPE 2 DIABETES MELLITUS WITHOUT COMPLICATIONS (2) Infected pressure ulcer Code(s): L89.90 - PRESSURE ULCER OF UNSPECIFIED SITE, UNSPECIFIED STAGE; L08.9 - LOCAL INFECTION OF THE SKIN AND SUBCUTANEOUS TISSUE, UNSP (3) Sepsis Code(s): A41.9 - SEPSIS, UNSPECIFIED ORGANISM (4) UTI (urinary tract infection) Code(s): N39.0 - URINARY TRACT INFECTION, SITE NOT SPECIFIED (5) ARF (acute renal failure) Code(s): N17.9 - ACUTE KIDNEY FAILURE, UNSPECIFIED (6) Abdominal lymphadenopathy Code(s): R59.0 - LOCALIZED ENLARGED LYMPH NODES (7) Anemia Code(s): D64.9 - ANEMIA, UNSPECIFIED (8) Bilateral leg ulcer Code(s): L97.919 - NON-PRS CHRONIC ULC UNSP PRT OF R LOW LEG W UNSP SEVERITY; L97.929 - NON-PRS CHRONIC ULC UNSP PRT OF L LOW LEG W UNSP SEVERITY Qualifiers: Non-pressure ulcer stage: limited to breakdown of skin Qualified Code(s): L97.911 - Non-pressure chronic ulcer of unspecified part of right lower leg limited to breakdown of skin; L97.921 - Non-pressure chronic ulcer of unspecified part of left lower leg limited to breakdown of skin (9) Chronic cellulitis Code(s): L03.90 - CELLULITIS, UNSPECIFIED (10) DM2 (diabetes mellitus, type 2) Code(s): E11.9 - TYPE 2 DIABETES MELLITUS WITHOUT COMPLICATIONS Qualifiers: Diabetes mellitus chcf insulin use: with long term care phlebotomist use Diabetes mellitus complication detail: with other circulatory complications (11) Noncompliance Code(s): Z91.19 - PATIENT'S NONCOMPLIANCE W OTH MEDICAL TREATMENT AND REGIMEN (12) Weight loss, abnormal Code(s): R63.4 - ABNORMAL WEIGHT LOSS Assessment/Plan PATIENT HAS CAPACITY TO MAKE DECISIONS ABOUT HER HEALTH. REFUSING SNF PLACEMENT HOWEVER I CONVINCED HER FOR A HOME HEALTH AID AND SHE WILL FOLLOW UP AT WOUND CENTER AN OUTPATIENT. DM CONTROL/DIET/NUTRITION EVAL ALL DISCUSSED WITH THE PATIENT AND I HAVE DISCUSSED THE RAMIFICATION IF SHE CONTINUED TO IGNORE HER HEALTH AND BE NON-COMPLIANT. SHE DOES NOT FOLLOW UP IN MY OFFICE REGULARLY I EXPLAINED SHE SHOULD SEE ME AND [facility] FOR WOUND CARE.
--- NOTE | 2019-05-02 12:28 | PN ---
Progress Note (short form) - Note Progress Note: Resting in NAD. No acute events overnight. Denies CP or SOB. Intake & Output 04/29/19 04/30/19 05/01/19 05/02/19 23:59 23:59 23:59 23:59 Intake Total 978 550 100 Output Total 800 Balance 178 550 100 Weight 272 lb Last Vital Signs Temp Pulse Resp BP Pulse Ox 98.0 F 95 H 18 99/55 L 100 05/02/19 09:00 05/02/19 09:00 05/02/19 09:00 05/02/19 09:00 05/01/19 21:00 Active Medications Acetaminophen (Tylenol -) 650 mg PO Q6H PRN PRN Reason: Fever Last Admin: 05/01/19 17:09 Dose: 650 mg Amino Acids (Prosource No Carb Liquid Pkt) 30 ml PO BID@0800,1730 [facility] Last Admin: 05/02/19 10:06 Dose: 30 ml Apixaban (Eliquis -) 5 mg PO BID [facility] Last Admin: 05/02/19 10:05 Dose: 5 mg Budesonide/Formoterol Fumarate (Symbicort 80/4.5mcg -) 2 puff IH BID [facility] Last Admin: 05/02/19 11:23 Dose: 2 puff Furosemide (Lasix -) 20 mg PO DAILY [facility] Last Admin: 05/02/19 10:06 Dose: 20 mg Insulin Aspart (Novolog Vial Sliding Scale -) 1 vial SQ ACHS [facility]; Protocol Last Admin: 05/02/19 11:21 Dose: 2 units Magnesium Oxide (Mag-Ox -) 400 mg PO BID [facility] Last Admin: 05/02/19 10:05 Dose: 400 mg Nystatin (Mycostatin Cream -) 1 applic TP BID [facility] Last Admin: 05/02/19 10:12 Dose: Not Given Oxycodone HCl (Roxicodone -) 5 mg PO Q6H PRN PRN Reason: PAIN LEVEL 7 - 10 Pantoprazole Sodium (Protonix -) 40 mg PO DAILY [facility] Last Admin: 05/02/19 10:05 Dose: 40 mg Polyethylene Glycol (Miralax (For Daily Use) -) 17 gm PO DAILY [facility] Last Admin: 05/02/19 10:12 Dose: Not Given Potassium Chloride (K-Dur -) 10 meq PO DAILY [facility] Last Admin: 05/02/19 10:06 Dose: 10 meq Potassium Phos/Sodium Phos (Phos-Nak Packet -) 1 packet PO BID [facility] Last Admin: 05/02/19 10:05 Dose: 1 packet Sodium Chloride ([place] Nasal [place] -) 2 spray NS BID PRN PRN Reason: NASAL CONGESTION HEENT: PERRL, NCAT, EOMI PULM: diminished bases CV: regular, no m/r/g appreciated ABD: obese, soft, +BS EXT: severe venous stasis, erythema, wounds bilateral carlin and multiple toes, excoriation, dressed Neuro: non-focal Laboratory Results - last 24 hr 05/01/19 05/01/19 05/02/19 17:12 21:41 05:51 WBC RBC Hgb Hct MCV MCH MCHC RDW Plt Count MPV Absolute Neuts (auto) Neutrophils % Lymphocytes % Monocytes % Eosinophils % Basophils % Nucleated RBC % POC Glucometer 235 226 181 05/02/19 05/02/19 08:30 11:19 WBC 16.0 H RBC 3.46 L Hgb 10.0 L Hct 30.6 L MCV 88.4 MCH 28.7 MCHC 32.5 RDW 14.6 Plt Count 337 MPV 9.8 Absolute Neuts (auto) 13.7 H Neutrophils % 85.8 H Lymphocytes % 6.6 L D Monocytes % 4.6 Eosinophils % 2.5 D Basophils % 0.5 Nucleated RBC % 0 POC Glucometer 242 IMP: Resolved Septic Shock Acute on CKD DM PAfib Chronic venous stasis wounds UTI Metabolic encephalopathy PLAN: ABX per ID Local wound care O2 as needed to maintain saturation Glycemic control Eliquis PO as tolerated Dr Andre
[2019-05-02] MEDS: oxyCODONE HCL 5 MG TABLET PO PRN (13:24)
[2019-05-02] MEDS: ACETAMINOPHEN 325 MG TABLET (FP) PO PRN (15:29)
[2019-05-03] MEDS: oxyCODONE HCL 5 MG TABLET PO PRN ×2 (00:47→11:16)
[2019-05-03] MEDS: INSULIN SLIDING SCALE (NOVOLOG) 1 VIAL SQ SCH ×2 (06:07→11:21)
[2019-05-03] MEDS ORDERED: INSULIN (NOVOLOG) ASPART 100 UNITS/ML 10ML VIAL ONE (11:05)
[2019-05-03] MEDS: AMINO ACIDS/PROTEIN HYDROLYS 30 ML LIQUID.PKT PO SCH (11:16)
[2019-05-03] MEDS: FUROSEMIDE 20 MG TABLET (FP) PO SCH (11:18)
[2019-05-03] MEDS: MAGNESIUM OXIDE 400 MG TABLET (FP) PO SCH (11:18)
[2019-05-03] MEDS: POTASSIUM CHLORIDE TABS 10 MEQ TABLET.ER (FP) PO SCH (11:18)
[2019-05-03] MEDS: APIXABAN 5 MG TABLET PO SCH (11:18)
[2019-05-03] MEDS: NAPH,MB-DB/K PH,MBDB POWDER PACKET PO SCH (11:18)
[2019-05-03] MEDS: PANTOPRAZOLE 40 MG TABLET PO SCH (11:19)
[2019-05-03] MEDS: POLYETHYLENE GLYCOL 3350 119 GM BTL PO SCH (11:20)
[2019-05-03] MEDS: NYSTATIN 100,000 UNIT/GM TOPICAL CREAM 15 GM TUBE TP SCH (11:20)
[2019-05-03] MEDS: BUDESONIDE/FORMETEROL FUMARATE 80/4.5 mcg INHALER IH SCH (11:21)
--- NOTE | 2019-05-03 12:18 | PN ---
Progress Note (short form) - Note Progress Note: Resting in NAD. No acute events overnight. Denies CP or SOB. Intake & Output 04/30/19 05/01/19 05/02/19 05/03/19 23:59 23:59 23:59 23:59 Intake Total 550 100 Balance 550 100 Weight 272 lb Last Vital Signs Temp Pulse Resp BP Pulse Ox 97.9 F 103 H 18 97/60 98 05/03/19 06:00 05/03/19 06:00 05/03/19 06:00 05/03/19 06:00 05/02/19 18:17 Active Medications Acetaminophen (Tylenol -) 650 mg PO Q6H PRN PRN Reason: Fever Last Admin: 05/02/19 15:29 Dose: 650 mg Amino Acids (Prosource No Carb Liquid Pkt) 30 ml PO BID@0800,1730 [facility] Last Admin: 05/03/19 11:16 Dose: 30 ml Apixaban (Eliquis -) 5 mg PO BID [facility] Last Admin: 05/03/19 11:18 Dose: 5 mg Budesonide/Formoterol Fumarate (Symbicort 80/4.5mcg -) 2 puff IH BID [facility] Last Admin: 05/03/19 11:21 Dose: 2 puff Furosemide (Lasix -) 20 mg PO DAILY [facility] Last Admin: 05/03/19 11:18 Dose: 20 mg Insulin Aspart (Novolog Vial Sliding Scale -) 1 vial SQ ACHS [facility]; Protocol Last Admin: 05/03/19 11:21 Dose: Not Given Magnesium Oxide (Mag-Ox -) 400 mg PO BID [facility] Last Admin: 05/03/19 11:18 Dose: 400 mg Nystatin (Mycostatin Cream -) 1 applic TP BID [facility] Last Admin: 05/03/19 11:20 Dose: Not Given Oxycodone HCl (Roxicodone -) 5 mg PO Q6H PRN PRN Reason: PAIN LEVEL 7 - 10 Last Admin: 05/03/19 11:16 Dose: 5 mg Pantoprazole Sodium (Protonix -) 40 mg PO DAILY [facility] Last Admin: 05/03/19 11:19 Dose: 40 mg Polyethylene Glycol (Miralax (For Daily Use) -) 17 gm PO DAILY [facility] Last Admin: 05/03/19 11:20 Dose: Not Given Potassium Chloride (K-Dur -) 10 meq PO DAILY [facility] Last Admin: 05/03/19 11:18 Dose: 10 meq Potassium Phos/Sodium Phos (Phos-Nak Packet -) 1 packet PO BID [facility] Last Admin: 05/03/19 11:18 Dose: 1 packet Sodium Chloride ([place] Nasal [place] -) 2 spray NS BID PRN PRN Reason: NASAL CONGESTION HEENT: PERRL, NCAT, EOMI PULM: diminished bases CV: regular, no m/r/g appreciated ABD: obese, soft, +BS EXT: severe venous stasis, erythema, wounds bilateral carlin and multiple toes, excoriation, dressed Neuro: non-focal Laboratory Results - last 24 hr 05/02/19 05/02/19 05/03/19 16:21 21:24 05:42 POC Glucometer 214 186 144 05/03/19 11:15 POC Glucometer 199 IMP: Resolved Septic Shock Acute on CKD DM PAfib Chronic venous stasis wounds UTI Metabolic encephalopathy PLAN: ABX per ID Local wound care O2 as needed to maintain saturation Glycemic control Eliquis PO as tolerated Dr Andre
--- NOTE | 2019-05-03 12:20 | DS ---
Physical Examination Vital Signs: Vital Signs Temperature 97.9 F 05/03/19 06:00 Pulse Rate 103 H 05/03/19 06:00 Respiratory Rate 18 05/03/19 06:00 Blood Pressure 97/60 05/03/19 06:00 O2 Sat by Pulse Oximetry (%) 98 05/02/19 18:17 Findings/Remarks: REFUSED SNF OR HOME HEALTH AID, REPORTS SHE CAN CHANGE DRESSINGS HERSELF Constitutional: Yes: Mild Distress Cardiovascular: Yes: Pulse Irregular Respiratory: Yes: WNL Gastrointestinal: Yes: Abdomen, Obese Musculoskeletal: Yes: Joint Swelling, Other Extremities: Yes: Deformity, Erythema Edema: Yes Edema: LLE: 3+, RLE: 3+ Integumentary: Yes: Pressure Ulcer, Rash, Venous Stasis Changes Wound/Incision: Yes: Dressing Dry and Intact, Excoriated Neurological: Yes: Numbness, Paresthesia ...Motor Strength: LLE, RLE Psychiatric: Yes: Other Labs: CBC, BMP 05/02/19 08:30 05/01/19 08:20 Discharge Summary Problems reviewed: Yes Reason For Visit: SEPSIS Current Active Problems Diabetes (Acute) Infected pressure ulcer (Acute) Sepsis (Acute) UTI (urinary tract infection) (Acute) Procedures: Principal: RADIOLOGY/LABS/CX Hospital Course: TREATED FOR CHRONIC B/L LEG EDEMA/ULCERS GIVEN IV ABX, WOUND CARE REFUSED SNF/HOME HEALTH AIDS ON-COMPLIANT Plan of Treatment: FOLLOW WITH WOUND CENTER, DM CONTROL Condition: Stable - Instructions Diet, Activity, Other Instructions: WOUND CENTER OUTPATIENT FOR DRESSING CHANGES AND SURGERY FOLLOW UPS ADA/LOW SODIUM/LOW FAT DIET Disposition: VNS/HOME HEALTH CARE - Home Medications Comprehensive Discharge Medication List: Ambulatory Orders Budesonide/Formeterol Fumarate [SYMBICORT 80/4.5mcg -] 2 puff IH BID inhaler Insulin Sliding Scale [Novolog Vial Sliding Scale -] 1 vial SQ ACHS units 02/20 Pantoprazole Sodium [Protonix -] 40 mg PO DAILY tablet.ec 07/04/17 Polyethylene Glycol 3350 [Miralax 119 gm Btl -] 17 gm PO DAILY bottle 07/22/18 Apixaban [Eliquis -] 5 mg PO BID #60 tablet 11/22/18 Magnesium Oxide [Mag-Ox -] 400 mg PO BID tablet 11/22/18 Pantoprazole Sodium [Protonix -] 40 mg PO DAILY #30 tablet.ec 11/22/18 Apixaban [Eliquis -] 5 mg PO BID #60 tablet 02/25/19 Blood-Glucose Meter [Blood Glucose Monitoring] 1 each MC BID #1 each 02/25/19 Insulin Glargine,Hum.rec.anlog [[place] Max Solostar] 10 unit SQ BID #1 insuln.pen 02/25/19 Lancets [Lancets Thin] 1 each MC BID #60 each 02/25/19 Magnesium Oxide [Mag-Ox -] 400 mg PO BID #60 tablet 02/25/19 Metoprolol Tartrate [Lopressor -] 12.5 mg PO BID #15 tablet 02/25/19 Pen Needle, Diabetic [1St Tier Unifine Pentips Plus] 1 each MC BID #60 dis.needle 02/25/19 Acetaminophen [Tylenol .Regular Strength -] 650 mg PO Q6H PRN tablet 05/03/19 Amino Acids/Protein Hydrolys [Prosource No Carb Liquid Pkt] 30 ml PO BID@0800, 1730 #60 packet 05/03/19 Apixaban [Eliquis -] 5 mg PO BID tablet 05/03/19 Furosemide [Lasix -] 20 mg PO DAILY #30 tablet 05/03/19 Gabapentin 300 mg PO TID #90 capsule 05/03/19 Nystatin Cream [Mycostatin Cream -] 1 applic TP BID 30 Days #1 applic 05/03/19 Potassium Chloride [K-Dur -] 10 meq PO DAILY #30 tablet.er 05/03/19 Sodium Chloride Nasal [place] [[place] Nasal [place] -] 2 spray NS BID PRN spray 05/03/19 oxyCODONE HCL [Roxicodone -] 5 mg PO Q6H PRN tablet MDD 4 05/03/19
[2019-05-03 13:27] VITALS: BP 127/65; PULSE 106; TEMP 98
== END 2019-05-03 14:04 | disposition home health service (06) | DRG 720 ==
LOC: JER 20:58 → JERBED 04-24 → JICU 04-24 01:58 → J5S 04-29 09:27
PROVIDERS: ADMIT Family Medicine; ATTEND Family Medicine
DX: A41.52 Sepsis due to Pseudomonas (principal); E66.01 Morbid (severe) obesity due to excess calories; Z68.41 Body mass index [BMI] 40.0-44.9, adult; E87.5 Hyperkalemia; N17.9 Acute kidney failure, unspecified; L97.929 Non-pressure chronic ulcer of unspecified part of left lower leg with unspecified severity; L97.919 Non-pressure chronic ulcer of unspecified part of right lower leg with unspecified severity; R00.1 Bradycardia, unspecified; E11.622 Type 2 diabetes mellitus with other skin ulcer; E11.51 Type 2 diabetes mellitus with diabetic peripheral angiopathy without gangrene; E87.2 Acidosis; N39.0 Urinary tract infection, site not specified; Z91.19 Patient's noncompliance with other medical treatment and regimen; I48.0 Paroxysmal atrial fibrillation; I47.2 Ventricular tachycardia; R65.21 Severe sepsis with septic shock; G93.41 Metabolic encephalopathy; L03.90 Cellulitis, unspecified; L89.90 Pressure ulcer of unspecified site, unspecified stage; N18.9 Chronic kidney disease, unspecified; E11.65 Type 2 diabetes mellitus with hyperglycemia; I12.9 Hypertensive chronic kidney disease with stage 1 through stage 4 chronic kidney disease, or unspecified chronic kidney disease; E78.5 Hyperlipidemia, unspecified
CPT/HCPCS: 36415; 36600; 70450-TC; 71045-TC-FY; 76937; 80048; 80053; 81003; 82550; 82803; 82962; 83036; 83605; 83735; 84100; 84484; 85025; 85027; 86803; 87040; 87070; 87077; 87086; 87186; 87205; 87340; 93005; 93010; 93970-TC; 97116-GP; 97162-GP; 99285-25; G0480; J0131; J1644; J7030

== ENCOUNTER 2020-01-10 10:12 | Inpatient (IN) | payer OTHER ==
--- NOTE | 2020-01-10 10:33 | PDOC ---
History of Present Illness - General Stated Complaint: SEPSIS Time Seen by Provider: 01/10/20 10:33 History Source: Patient, EMS - History of Present Illness Initial Comments: 01/10/20 12:39 54F w/hx DM, chronic LE wounds, CKD BIBEMS after tripping at home, found to be hypotensive to 70s/40s. Per EMS, the home was unkempt with animal excrement throughout the apartment. She reports that her wounds have been followed by Dr. Maxwell. She reports changing her dressings herself. She is a poor historian and unsure of her medical problems. She reports feeling generalized weakness, chills over the last several days. She denies any head injury, fevers. She is a poor historian and unsure of her medical history. She was recently admitted to our ICU for septic shock with similar presentation two months ago on 10/27/2019. Past History - Medical History Allergies/Adverse Reactions: Allergies Allergy/AdvReac Type Severity Reaction Status Date / Time nut - unspecified Allergy Verified 01/10/20 10:59 Penicillins Allergy Verified 01/10/20 10:59 walnut Allergy Verified 01/10/20 10:59 caviar Allergy Uncoded 01/10/20 10:59 Home Medications: Ambulatory Orders Acetaminophen [Tylenol .Regular Strength -] 650 mg PO Q6H PRN tablet 11/05/19 Albuterol Sulfate Inhaler - [Ventolin HFA Inhaler -] 2 puff IH Q4H PRN #1 inhaler 11/05/19 Apixaban [Eliquis -] 5 mg PO BID #60 tablet 11/05/19 Budesonide/Formeterol Fumarate [SYMBICORT 80/4.5mcg -] 2 puff IH BID #1 inhaler 11/05/19 Doxycycline Hyclate [Vibramycin -] 100 mg PO BID@1000,1800 #14 capsule 11/05/19 Ferrous Sulfate [Iron] 325 mg PO BID #60 tablet 11/05/19 Folic Acid 1 mg PO DAILY #30 tablet 11/05/19 Furosemide [Lasix -] 20 mg PO DAILY #30 tablet 11/05/19 Gabapentin [Neurontin -] 600 mg PO TID #180 capsule 11/05/19 Insulin Glargine,Hum.rec.anlog [Isabel Webb] 10 unit SQ BID #1 insuln.pen 11/05/19 Lancets [Lancets Thin] 1 each ACHS #120 each 11/05/19 Magnesium Oxide [Mag-Ox -] 400 mg PO BID #60 tablet 11/05/19 Nystatin Cream [Mycostatin Cream -] 1 applic TP BID 30 Days #1 applic 11/05/19 Pantoprazole Sodium [Protonix -] 40 mg PO DAILY #60 tablet.ec 11/05/19 Polyethylene Glycol 3350 [Miralax 119 gm Btl -] 17 gm PO DAILY #1 bottle 11/05/19 oxyCODONE HCL [Roxicodone -] 5 mg PO Q6H PRN #120 tablet MDD 4 11/05/19 Insulin Detemir [Levemir Flextouch] 10 unit SQ BID #5 insuln.pen 11/06/19 traMADol HCL [Ultram -] 50 mg PO Q8H 7 Days #21 tablet MDD 3 11/06/19 Anemia: No Asthma: Yes Cardiac Disorders: Yes (A-fib) COPD: No DVT: No Diabetes: Yes (on insulin) GI Disorders: Yes (Gallstones, GERD) HTN: Yes Hypercholesterolemia: Yes Psychiatric Problems: Yes (bipolar) - Immunization History Immunization Up to Date: Yes - Psycho-Social/Smoking History Smoking History: Former smoker Have you smoked in the past 12 months: No Number of Cigarettes Smoked Daily: 0 If you are a former smoker, when did you quit?: quit age 13 'Breaking Loose' booklet given: 02/08/19 Review of Systems - Review of Systems Able to Perform ROS?: Yes Comments:: 01/10/20 16:54 GENERAL/CONSTITUTIONAL: Chills, weakness. No fever HEAD, EYES, EARS, NOSE AND THROAT: No change in vision. No ear pain or discharge. No sore throat. CARDIOVASCULAR: No chest pain or shortness of breath RESPIRATORY: No cough, wheezing, or hemoptysis. GASTROINTESTINAL: No nausea, vomiting, diarrhea or constipation. GENITOURINARY: No dysuria, frequency, or change in urination. MUSCULOSKELETAL: Worsening non-healing wounds. No joint or muscle swelling. No neck or back pain. SKIN: Lower extremity wounds. NEUROLOGIC: No headache, vertigo, loss of consciousness, or change in strength/sensation. ENDOCRINE: No increased thirst. No abnormal weight change HEMATOLOGIC/LYMPHATIC: No anemia, easy bleeding, or history of blood clots. ALLERGIC/IMMUNOLOGIC: No hives or skin allergy. *Physical Exam - Physical Exam 01/10/20 16:56 GENERAL: Awake, alert. Groaning in discomfort. HEAD: No signs of trauma, normocephalic, atraumatic EYES: PERRLA, EOMI, sclera anicteric, conjunctiva clear ENT: Auricles normal inspection, hearing grossly normal, nares patent, oropharynx clear without exudates. Moist mucosa NECK: Normal ROM, supple, no lymphadenopathy, JVD, or masses LUNGS: No distress, speaks full sentences, clear to auscultation bilaterally HEART: Regular rate and rhythm, normal S1 and S2, no murmurs, rubs or gallops, peripheral pulses normal and equal bilaterally. ABDOMEN: Soft, nontender, normoactive bowel sounds. No guarding, no rebound. No masses EXTREMITIES : Bilateral diffuse, foul smelling, weeping ulcerations from mid leg to ankles. NEUROLOGICAL: Cranial nerves II through XII grossly intact. Normal speech, no focal sensorimotor deficits SKIN: Warm, Dry, normal turgor, no rashes or lesions noted Procedures - Central Line Central Line Lumen: double Central Line Position: femoral (L) Complications: none Post Central Line Insertion: sutured, good blood return ED Treatment Course - LABORATORY CBC & Chemistry Diagram: 01/10/20 11:10 01/10/20 16:00 Medical Decision Making - Medical Decision Making 01/10/20 17:04 54F w/hx non-healing wounds, afib, DM, recent ICU admission for septic shock secondary to wounds BIBEMS hypotensive, unkempt, with worsening LE wounds and hypotension with MAP to mid 50s, likely representing septic shock. Plan: EKG CXR Sepsis labs 30cc/kg fluid bolus estimated at 6L. Plan for 1.5L initial bolus, reassessment before additional 1.5L. Meropenem Likely central access pending BP monitoring. Dispo: ICU --- K - 8.8. Specimen reportedly not hemolyzed. Cr - 5.7 Peaked T waves on initial EKG. Plan for IV insulin, D50 push, calcium gluconate. --- BP improved to 100s/60s with fluid boluses. --- Case discussed with Dr. Epstein (Nephrology). Plan for emergent dialysis today. Plan for trialysis catheter placement. --- Trialysis placement complicated by patient movement. Dual lumen dialysis catheter placed in L femoral. --- Patient admitted to ICU. Plan for emergent dialysis. Discharge - Discharge Information Problems reviewed: Yes Clinical Impression/Diagnosis: Septic shock, Diabetic calf ulcer, Hyperkalemia Acute renal failure Qualifiers: Acute renal failure type: unspecified Qualified Code(s): N17.9 - Acute kidney failure, unspecified Condition: Critical - Admission Yes - Follow up/Referral - Patient Discharge Instructions - Post Discharge Activity
[2020-01-10] MEDS ORDERED: VANCOMYCIN HCL 1,500 MG in DEXTROSE 5%-WATER - 500 ML IVPB ONE (11:36)
[2020-01-10] MEDS ORDERED: MEROPENEM 1 GM in DEXTROSE 5%-WATER 100 ML IVPB ONE (11:39)
[2020-01-10 11:43] LABS: BASO % 0.1 % (0-2.0); EOS % 1.1 % (0-4.5); HEMATOCRIT 36.3 % (32.4-45.2); HEMOGLOBIN 11.3 GM/dL (10.7-15.3); LYMPH % 4.3 % (8-40); MCH 28.7 pg (25.7-33.7); MEAN CELL VOLUME 92.6 fl (80-96); MEAN PLT VOLUME 10.1 fl (7.5-11.1); MONO % 2.8 % (3.8-10.2); NEUT % 91.7 % (42.8-82.8); PLATELET COUNT 359 K/MM3 (134-434); RBC 3.92 M/mm3 (3.60-5.2); RDW 16.3 % (11.6-15.6); WHITE BLOOD COUNT 22.4 K/mm3 (4.0-10.0)
[2020-01-10 11:50] LABS: INR 1.23 (0.83-1.09); PROTHROMBIN TIME (PATIENT) 14.5 SEC (9.7-13.0)
[2020-01-10 11:53] LABS: ACTIVATED PTT 34.8 SECONDS (25.2-36.5)
[2020-01-10] MEDS ORDERED: MEROPENEM 1 GM VIAL (RESTRICTED TO ID) IVPB ONE (11:53)
[2020-01-10 12:11] LABS: CALCIUM 9.2 mg/dL (8.5-10.1); CREATININE 5.7 mg/dL (0.55-1.3); TOT PROT 7.5 g/dl (6.4-8.2)
[2020-01-10 12:12] LABS: ANISOCYTOSIS 0; MACROCYTOSIS 1+; PLATELET ESTIMATE NORMAL
[2020-01-10 12:19] LABS: BILIRUBIN,TOTAL 1.3 mg/dL (0.2-1)
[2020-01-10] MEDS ORDERED: LACTATED RINGERS SOLUTION 1000 ML INFUS.BAG IV ONE (12:37)
[2020-01-10 12:51] LABS: BLOOD UREA NITROGEN 129.4 mg/dL (7-18); POTASSIUM 8.8 mmol/L (3.5-5.1)
[2020-01-10] MEDS ORDERED: CALCIUM GLUCONATE 10% - 1,000 MG/10 ML VIAL IVPB ONE (12:59)
[2020-01-10] MEDS ORDERED: INSULIN REGULAR HUMAN 100 UNITS/ML *VIAL IVPUSH ONE ×2 (13:02→14:27)
[2020-01-10] MEDS ORDERED: DEXTROSE 50%-WATER - 25 GM/50 ML VIAL IVPUSH ONE (13:03)
[2020-01-10] MEDS ORDERED: CALCIUM GLUCONATE 10% - 1,000 MG/10 ML VIAL ONE ×3 (13:33→14:31)
[2020-01-10] MEDS ORDERED: INSULIN REGULAR HUMAN 100 UNITS/ML *VIAL ONE (13:34)
[2020-01-10] MEDS ORDERED: DEXTROSE 50%-WATER 25 GM/50 ML DISP.SYRIN ONE (13:34)
[2020-01-10] MEDS ORDERED: DEXTROSE 50%-WATER - 25 GM/50 ML VIAL ONE ×3 (13:35→14:31)
[2020-01-10] MEDS ORDERED: SODIUM BICARBONATE 8.4% 50 MEQ/50 ML DISP.SYRIN IVPUSH ONE ×3 (13:38→16:10)
[2020-01-10] MEDS ORDERED: SODIUM BICARBONATE 8.4% - 50 ML ONE (13:40)
--- NOTE | 2020-01-10 13:42 | PDOC ---
Documentation entered by Imelda Lindo SCRIBE, acting as scribe for Mark Powell MD. Mark Powell MD: This documentation has been prepared by the zekeibeGuicho Ana, SCRIBE, under my direction and personally reviewed by me in its entirety. I confirm that the documentation accurately reflects all work, treatment, procedures, and medical decision making performed by me. Attending Attestation - Resident Resident Name: JaiMainor - ED Attending Attestation I have performed the following: I have examined & evaluated the patient, The case was reviewed & discussed with the resident, I agree w/resident's findings & plan, Exceptions are as noted - HPI HPI: 01/10/20 11:23 Patient is a 54 year old female with a significant past medical history A. fib on Eliquis, diabetes, hypertension, CKD, chronic lower extremity ulcers,. Patient stated that she has been following up with PCP for her wounds and that she changes the dressings herself. Per EMS, patient was found in unsanitary apartment full of animal excrement. HPI is limited to patient being a poor historian. Patient endorses: chills and generalized weakness x a couple days. Patient denies: any head trauma, fevers, or any other related symptoms. Allergies: see nurse's note - Physicial Exam PE: 01/10/20 15:24 Vitals: Triage Vital signs reviewed General Appearance:Mild Distress, unkept, obese Head: Atraumatic, Neck: Supple; no Nucal rigidity Chest Wall: Nontender Cardiac: Tachycardic Lungs: Clear to auscultation bilateral, good air movement bilaterally, Abdomen: Soft, non distended, normal bowel sounds, non tender to palpation Extremities: Full range of motion to all extremities, B/L swollen lower extremities Skin: Bilateral enlarged infected lower extremities foul-smelling, multiple draining ulcers Neuro:cranial Nerves 2-12 grossly intact, strength intact to all extremities, sensation intact to all extremities, Psych: Normal mood, normal affect - Critical Care Time Total Critical Care Time: 65 Critical Care Statement: The care of this patient involved high complexity decision making to prevent further life threatening deterioration of the patient's condition and/or to evaluate & treat vital organ system(s) failure or risk of failure. - Medical Decision Making 01/10/20 16:29 54 years old past medical history significant for A. fib on Eliquis hypertension hyperlipidemia diabetes chronic kidney disease bilateral lower extremity ulcers noncompliant with medications presented today with severely infected bilateral lower extremities noted to be hypotensive upon arrival to the emergency department IV access obtained 2 L normal saline given with improvement in patient's blood pressure Labs notable for renal failure and hyperkalemia EKG demonstrated normal sinus rhythm tachycardic no changes consistent with hyperkalemia Renal consulted Hyperkalemia cocktail given including IV calcium gluconate IV insulin IV dextrose IV sodium bicarbonate Dialysis catheter placed left femoral Ventricular ectopy noted on rhythm monitor Additional round of calcium insulin dextrose and sodium bicarb given Patient accepted to ICU for emergent dialysis and further management Discharge - Discharge Information Problems reviewed: Yes Clinical Impression/Diagnosis: Septic shock, Diabetic calf ulcer, Hyperkalemia Acute renal failure Qualifiers: Acute renal failure type: unspecified Qualified Code(s): N17.9 - Acute kidney failure, unspecified Condition: Critical - Follow up/Referral - Patient Discharge Instructions - Post Discharge Activity
[2020-01-10] MEDS ORDERED: CALCIUM GLUCONATE 10% - 1,000 MG/10 ML VIAL IVPUSH ONE (14:26)
[2020-01-10] MEDS ORDERED: SODIUM BICARBONATE 4.2% 5 MEQ/10 ML DISP.SYRIN IVPUSH ONE (14:31)
[2020-01-10] MEDS ORDERED: MIDAZOLAM HCL 2 MG/2 ML SINGLE DOSE VIAL IVPUSH ONE ×2 (14:54→19:39)
[2020-01-10] MEDS ORDERED: MIDAZOLAM HCL 2 MG/2 ML SINGLE DOSE VIAL ONE ×4 (14:55→19:36)
[2020-01-10 15:02] LABS: MAGNESIUM 2.7 mg/dL (1.8-2.4); PHOSPHOROUS 8.3 mg/dL (2.5-4.9)
--- NOTE | 2020-01-10 16:04 | CONSULT ---
Consult Consult Specialty:: Nephrology Reason for Consultation:: NOVA - History of Present Illness Chief Complaint: fell at home History of Present Illness: Pt is a 54 year old female with pmhx of ckd, multiple bouts of nova requiring hd, dm, chronic lower ext wounds, and non compliance who persented after falling at home. She says she was walking when she tripped. She was found to be in severe renal failure and I was called to evaluate her. She has not followed with me since her last hospitalization. She denies fever or chills but she complains of weakness. She says she has not made much urine. She denies chest pain or shortness of breath. She agrees to HD. - History Source History Provided By: Patient, Medical Record - Past Medical History Cardio/Vascular: Yes: AFIB, HTN Pulmonary: Yes: Asthma Gastrointestinal: Yes: Other (gallstones) Hepatobiliary: Yes: Cholelithiasis (passed without surgery), Other (fatty liver) Renal/: Yes: Renal Inusuff ...LMP: 01/10/20 ...: No Infectious Disease: Yes: Other (LE cellulitis) Psych: Yes: Bipolar Endocrine: Yes: Diabetes Mellitus Dermatology: Yes: Cellulitis (b/l LE with ulcerations) Additional Medical History: obesity - Alcohol/Substance Use Hx Alcohol Use: No History of Substance Use: reports: Prescription (narcotics) - Smoking History Smoking history: Former smoker Have you smoked in the past 12 months: No Aproximately how many cigarettes per day: 0 If you are a former smoker, when did you quit?: quit age 13 - Social History Usual Living Arrangement: With Spouse ADL: Independent 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 History of Recent Travel: No Home Medications - Allergies Allergies/Adverse Reactions: Allergies Allergy/AdvReac Type Severity Reaction Status Date / Time nut - unspecified Allergy Verified 01/10/20 10:59 Penicillins Allergy Verified 01/10/20 10:59 walnut Allergy Verified 01/10/20 10:59 caviar Allergy Uncoded 01/10/20 10:59 - Home Medications Home Medications: Ambulatory Orders Acetaminophen [Tylenol .Regular Strength -] 650 mg PO Q6H PRN tablet 11/05/19 Albuterol Sulfate Inhaler - [Ventolin HFA Inhaler -] 2 puff IH Q4H PRN #1 inhaler 11/05/19 Apixaban [Eliquis -] 5 mg PO BID #60 tablet 11/05/19 Budesonide/Formeterol Fumarate [SYMBICORT 80/4.5mcg -] 2 puff IH BID #1 inhaler 11/05/19 Doxycycline Hyclate [Vibramycin -] 100 mg PO BID@1000,1800 #14 capsule 11/05/19 Ferrous Sulfate [Iron] 325 mg PO BID #60 tablet 11/05/19 Folic Acid 1 mg PO DAILY #30 tablet 11/05/19 Furosemide [Lasix -] 20 mg PO DAILY #30 tablet 11/05/19 Gabapentin [Neurontin -] 600 mg PO TID #180 capsule 11/05/19 Insulin Glargine,Hum.rec.anlog [Isabel Webb] 10 unit SQ BID #1 insuln.pen 11/05/19 Lancets [Lancets Thin] 1 each ACHS #120 each 11/05/19 Magnesium Oxide [Mag-Ox -] 400 mg PO BID #60 tablet 11/05/19 Nystatin Cream [Mycostatin Cream -] 1 applic TP BID 30 Days #1 applic 11/05/19 Pantoprazole Sodium [Protonix -] 40 mg PO DAILY #60 tablet.ec 11/05/19 Polyethylene Glycol 3350 [Miralax 119 gm Btl -] 17 gm PO DAILY #1 bottle 11/05/19 oxyCODONE HCL [Roxicodone -] 5 mg PO Q6H PRN #120 tablet MDD 4 11/05/19 Insulin Detemir [Levemir Flextouch] 10 unit SQ BID #5 insuln.pen 11/06/19 traMADol HCL [Ultram -] 50 mg PO Q8H 7 Days #21 tablet MDD 3 11/06/19 Family Medical History Family History: Denies Review of Systems - Review of Systems Constitutional: reports: Malaise. denies: Chills, Fever Eyes: reports: No Symptoms HENT: reports: No Symptoms Neck: reports: No Symptoms Cardiovascular: reports: No Symptoms Respiratory: reports: No Symptoms Gastrointestinal: reports: No Symptoms Genitourinary: reports: No Symptoms Musculoskeletal: reports: Muscle Weakness Integumentary: reports: Other (chronic wounds) Neurological: reports: No Symptoms Endocrine: reports: No Symptoms Hematology/Lymphatic: reports: No Symptoms Psychiatric: reports: No Symptoms Physical Exam Vital Signs: Vital Signs Temperature Pulse Rate 105 H 01/10/20 14:30 Respiratory Rate 20 01/10/20 14:30 Blood Pressure 119/92 01/10/20 14:30 O2 Sat by Pulse Oximetry (%) 97 01/10/20 14:30 Constitutional: Yes: Calm Eyes: Yes: Conjunctiva Clear HENT: Yes: Atraumatic Cardiovascular: Yes: S1, S2 Respiratory: Yes: On Nasal O2 Gastrointestinal: Yes: Soft, Abdomen, Obese Renal/: Yes: Incontinence Musculoskeletal: Yes: Muscle Weakness Edema: LLE: Trace, RLE: Trace Wound/Incision: Yes: Open to air Neurological: Yes: Oriented Labs: CBC, BMP 01/10/20 11:10 01/10/20 11:10 Laboratory Tests 01/10/20 01/10/20 11:10 11:10 WBC 22.4 H Hgb 11.3 Sodium 136 Potassium 8.8 H* Chloride 117 H Carbon Dioxide 6 L BUN 129.4 H* Creatinine 5.7 H Magnesium 2.7 H Albumin 3.0 L Imaging - Results Chest X-ray: Report Reviewed Problem List - Problems (1) NOVA (acute kidney injury) Code(s): N17.9 - ACUTE KIDNEY FAILURE, UNSPECIFIED (2) DM2 (diabetes mellitus, type 2) Code(s): E11.9 - TYPE 2 DIABETES MELLITUS WITHOUT COMPLICATIONS Qualifiers: Diabetes mellitus [facility] insulin use: with rn long term care use Diabetes mellitus complication detail: with other circulatory complications (3) Hyperkalemia Code(s): E87.5 - HYPERKALEMIA (4) Metabolic acidosis Code(s): E87.2 - ACIDOSIS Assessment/Plan Impression 1. NOVA 2. hyperkalemia 3. obesity 4. DM 5. a-fib 6. HTN 7. chronic lower extremity ulcers 8. gastritis 9. sepsis 10. hyperglycemia 11. metabolic acidosis 12. peripheral vascular disease Plan - potassium treated medically - will arrange for urgent HD - start bicarb drip until HD starts - pt has received about 3 liters saline boluses in er - bp is improved - maintain map 65 - will not uf fluid on hd - will need icu admission - vascular eval for ulcer - send cultures
[2020-01-10] MEDS ORDERED: SODIUM BICARBONATE 8.4% - 150 MEQ in DEXTROSE 5%-WATER - 1,000 ML IV SCH (16:15)
[2020-01-10] MEDS ORDERED: CALCIUM CHLORIDE 1 GM/10 ML *DISP.SYRIN IVPUSH ONE (16:18)
[2020-01-10 16:58] LABS: EPI CELLS >36 /uL (0-25.1); HYALINE CASTS 57 /uL (0-3.1); URINE APPEARANCE TURBID; URINE BILIRUBIN NEGATIVE (NEGATIVE); URINE COLOR DK YELLOW; URINE GLUCOSE (UA) TRACE (NEGATIVE); URINE KETONE TRACE (NEGATIVE); URINE LEUK ESTERASE NEGATIVE (NEGATIVE); URINE NITRITE NEGATIVE (NEGATIVE); URINE PROTEIN 1+ (NEGATIVE); URINE RBC 27 /uL (0-23.9)
[2020-01-10] MEDS ORDERED: SODIUM CHLORIDE 250 ML IV PRN (17:10)
[2020-01-10 17:13] LABS: ALBUMIN 2.9 g/dl (3.4-5.0); BILIRUBIN,TOTAL 0.9 mg/dL (0.2-1); CALCIUM 9.6 mg/dL (8.5-10.1); CREATININE 6.1 mg/dL (0.55-1.3); TOT PROT 7.4 g/dl (6.4-8.2)
[2020-01-10 17:22] LABS: BLOOD UREA NITROGEN 127.7 mg/dL (7-18); POTASSIUM 7.7 mmol/L (3.5-5.1)
[2020-01-10 17:31] LABS: URINE BACTERIA 259.1 /uL (0-1359); URINE WBC 76.2 /uL (0-25.8)
--- NOTE | 2020-01-10 17:51 | EKG ---
Test Reason : Blood Pressure : / mmHG Vent. Rate : 153 BPM Atrial Rate : 081 BPM P-R Int : 228 ms QRS Dur : 042 ms QT Int : 208 ms P-R-T Axes : 072 000 193 degrees QTc Int : 332 ms SINUS TACHYCARDIA INDETERMINATE AXIS PULMONARY DISEASE PATTERN MARKED ST ABNORMALITY, POSSIBLE INFERIOR SUBENDOCARDIAL INJURY MARKED ST ABNORMALITY, POSSIBLE ANTEROLATERAL SUBENDOCARDIAL INJURY ABNORMAL ECG Confirmed by MD SAMIRA, KARIN ([id number]) on 01/10/2020 5:50:46 PM Referred By: Confirmed By:KARIN HOGAN MD
[2020-01-10] MEDS ORDERED: VANCOMYCIN 1 GM in D5W (PRE-DOCKED) 1,000 MG/250 ML IVPB ONE (18:02)
[2020-01-10 19:11] LABS: ARTERIAL BLD GAS O2 SATURATION 98.4 mmHg (95-98); ARTERIAL BLOOD GAS PO2 148.3 mmHg (80-100)
[2020-01-10 19:13] LABS: ALLENS TEST POSITIVE
[2020-01-10] MEDS ORDERED: LORazepam 2 MG/ML SDV VIAL IM ONE (19:41)
--- NOTE | 2020-01-10 19:44 | HP ---
CHIEF COMPLAINT: fall PCP: unable to obtain HISTORY OF PRESENT ILLNESS: 54 year old female w/ PMH CKD, afib (on Eliquis), DM, chronic LE ulcers (dresses them herself) and noncompliance. Upon my examination, pt was responsive to voice. Pt endorses to falling, without head trauma or loss of conciousness. Also endorsed to weakness for several days. Denies fever. History of present illness limited due to pt being poor historian. As per EMS, pt lives in poor living conditions filled with animal excrement. Renal (Dr. Epstein) consulted and present in ED due to worsening renal function. L femoral shiley placed for urgent HD. ER course was notable for: (1) IV calcium gluconate IV insulin IV dextrose (2) Insertion of dialysis catheter in L femoral PAST MEDICAL HISTORY: As per HPI. Allergies nut - unspecified Allergy (Verified 01/10/20 10:59) Penicillins Allergy (Verified 01/10/20 10:59) walnut Allergy (Verified 01/10/20 10:59) caviar Allergy (Uncoded 01/10/20 10:59) HOME MEDICATIONS: Home Medications Medication Instructions Recorded Acetaminophen [Tylenol .Regular 650 mg PO Q6H PRN tablet 11/05/19 Strength -] Albuterol Sulfate Inhaler - 2 puff IH Q4H PRN #1 inhaler 11/05/19 [Ventolin HFA Inhaler -] Apixaban [Eliquis -] 5 mg PO BID #60 tablet 11/05/19 Budesonide/Formeterol Fumarate 2 puff IH BID #1 inhaler 11/05/19 [SYMBICORT 80/4.5mcg -] Doxycycline Hyclate [Vibramycin -] 100 mg PO BID@1000,1800 #14 capsule 11/05/19 Ferrous Sulfate [Iron] 325 mg PO BID #60 tablet 11/05/19 Folic Acid 1 mg PO DAILY #30 tablet 11/05/19 Furosemide [Lasix -] 20 mg PO DAILY #30 tablet 11/05/19 Gabapentin [Neurontin -] 600 mg PO TID #180 capsule 11/05/19 Insulin Glargine,Hum.rec.anlog 10 unit SQ BID #1 insuln.pen 11/05/19 [[employer] Solostmj] Lancets [Lancets Thin] 1 each ACHS #120 each 11/05/19 Magnesium Oxide [Mag-Ox -] 400 mg PO BID #60 tablet 11/05/19 Nystatin Cream [Mycostatin Cream -] 1 applic TP BID 30 Days #1 applic 11/05/19 Pantoprazole Sodium [Protonix -] 40 mg PO DAILY #60 tablet.ec 11/05/19 Polyethylene Glycol 3350 [Miralax 17 gm PO DAILY #1 bottle 11/05/19 119 gm Btl -] oxyCODONE HCL [Roxicodone -] 5 mg PO Q6H PRN #120 tablet MDD 4 11/05/19 Insulin Detemir [Levemir Flextouch] 10 unit SQ BID #5 insuln.pen 11/06/19 traMADol HCL [Ultram -] 50 mg PO Q8H 7 Days #21 tablet MDD 11/06/19 3 REVIEW OF SYSTEMS Unable to obtain PHYSICAL EXAMINATION GENERAL: Responsive, following commands, but disoriented. Tremulousness, moaning in pain. CARDIO: Tachycardic. RESPIRATORY: on 2L NC, cta b/l GI: Obese, soft, non-distended. Non-tender to palpation EXTREMITIES: warm, well-perfused SKIN: b/l chronic venous stasis ulcers. L lower extremity lateral draining serosanguinous fluid. Laboratory Last Values WBC 22.4 K/mm3 (4.0-10.0) H 01/10/20 11:10 RBC 3.92 M/mm3 (3.60-5.2) 01/10/20 11:10 Hgb 11.3 GM/dL (10.7-15.3) 01/10/20 11:10 Hct 36.3 % (32.4-45.2) D 01/10/20 11:10 MCV 92.6 fl (80-96) D 01/10/20 11:10 MCH 28.7 pg (25.7-33.7) 01/10/20 11:10 MCHC 31.0 g/dl (32.0-36.0) L 01/10/20 11:10 RDW 16.3 % (11.6-15.6) H 01/10/20 11:10 Plt Count 359 K/MM3 (134-434) D 01/10/20 11:10 MPV 10.1 fl (7.5-11.1) 01/10/20 11:10 Absolute Neuts (auto) 20.6 K/mm3 (1.5-8.0) H 01/10/20 11:10 Neutrophils % 91.7 % (42.8-82.8) H D 01/10/20 11:10 Neutrophils % (Manual) 90.5 % (42.8-82.8) H 01/10/20 11:10 Band Neutrophils % 0.0 % 01/10/20 11:10 Lymphocytes % 4.3 % (8-40) L D 01/10/20 11:10 Lymphocytes % (Manual) 7.4 % (8-40) L D 01/10/20 11:10 Monocytes % 2.8 % (3.8-10.2) L 01/10/20 11:10 Monocytes % (Manual) 2 % (3.8-10.2) L D 01/10/20 11:10 Eosinophils % 1.1 % (0-4.5) 01/10/20 11:10 Eosinophils % (Manual) 0.0 % (0-4.5) D 01/10/20 11:10 Basophils % 0.1 % (0-2.0) 01/10/20 11:10 Basophils % (Manual) 0.0 % (0-2.0) 01/10/20 11:10 Myelocytes % (Man) 0 % (0-2) D 01/10/20 11:10 Promyelocytes % (Man) 0 % (0-2) 01/10/20 11:10 Blast Cells % (Manual) 0 % (0-0) 01/10/20 11:10 Nucleated RBC % 0 % (0-0) 01/10/20 11:10 Metamyelocytes 0 % (0-2) 01/10/20 11:10 Hypochromia 0 01/10/20 11:10 Platelet Estimate Normal 01/10/20 11:10 Polychromasia 0 01/10/20 11:10 Poikilocytosis 0 01/10/20 11:10 Anisocytosis 0 01/10/20 11:10 Microcytosis 0 01/10/20 11:10 Macrocytosis 1+ 01/10/20 11:10 PT with INR 14.50 SEC (9.7-13.0) H 01/10/20 11:10 INR 1.23 (0.83-1.09) H 01/10/20 11:10 PTT (Actin FS) 34.8 SECONDS (25.2-36.5) 01/10/20 11:10 Anticoagulation Therapy No Result Required. 01/10/20 18:50 Puncture Site Left radial 01/10/20 18:50 Patient Temperature No Result Required. 01/10/20 18:50 ABG pH 7.180 (7.350-7.450) L* 01/10/20 18:50 ABG pCO2 36.80 mmHg (35-45) 01/10/20 18:50 ABG pO2 148.3 mmHg (80-100) H 01/10/20 18:50 ABG HCO3 13.4 mmol/L (22-27) L 01/10/20 18:50 ABG O2 Sat (Measured) 98.4 mmHg (95-98) H 01/10/20 18:50 ABG O2 Content No Result Required. 01/10/20 18:50 ABG Base Excess -14.0 mmol/L (-2-2) L 01/10/20 18:50 Kwesi Test Positive 01/10/20 18:50 Patient On Oxygen Yes 01/10/20 18:50 O2 Delivery Device Ventimask 01/10/20 18:50 Oxygen Flow Rate No Result Required. 01/10/20 18:50 Vent Mode No Result Required. 01/10/20 18:50 Vent Rate No Result Required. 01/10/20 18:50 Mechanical Rate No Result Required. 01/10/20 18:50 PEEP No Result Required. 01/10/20 18:50 Pressure Support Vent No Result Required. 01/10/20 18:50 Sodium 138 mmol/L (136-145) 01/10/20 16:00 Potassium 7.7 mmol/L (3.5-5.1) H* 01/10/20 16:00 Chloride 116 mmol/L (98-107) H 01/10/20 16:00 Carbon Dioxide 10 mmol/L (21-32) L 01/10/20 16:00 Anion Gap 12 MMOL/L (8-16) 01/10/20 16:00 BUN 127.7 mg/dL (7-18) H* 01/10/20 16:00 Creatinine 6.1 mg/dL (0.55-1.3) H 01/10/20 16:00 Est GFR (CKD-EPI)AfAm 8.19 01/10/20 16:00 Est GFR (CKD-EPI)NonAf 7.07 01/10/20 16:00 Random Glucose 153 mg/dL (74-106) H 01/10/20 16:00 Lactic Acid 0.6 mmol/L (0.4-2.0) 01/10/20 11:18 Calcium 9.6 mg/dL (8.5-10.1) 01/10/20 16:00 Phosphorus 8.3 mg/dL (2.5-4.9) H 01/10/20 11:10 Magnesium 2.7 mg/dL (1.8-2.4) H 01/10/20 11:10 Total Bilirubin 0.9 mg/dL (0.2-1) 01/10/20 16:00 AST 20 U/L (15-37) 01/10/20 16:00 ALT 32 U/L (13-61) 01/10/20 16:00 Alkaline Phosphatase 165 U/L (45-117) H 01/10/20 16:00 Troponin I < 0.02 ng/ml (0.00-0.05) 01/10/20 11:10 Total Protein 7.4 g/dl (6.4-8.2) 01/10/20 16:00 Albumin 2.9 g/dl (3.4-5.0) L 01/10/20 16:00 Urine Color Dk yellow 01/10/20 16:00 Urine Appearance Turbid 01/10/20 16:00 Urine pH 5.0 (5.0-8.0) 01/10/20 16:00 Ur Specific [place] 1.027 (1.010-1.035) 01/10/20 16:00 Urine Protein 1+ (NEGATIVE) H 01/10/20 16:00 Urine Glucose (UA) Trace (NEGATIVE) 01/10/20 16:00 Urine Ketones Trace (NEGATIVE) H 01/10/20 16:00 Urine Blood Negative (NEGATIVE) 01/10/20 16:00 Urine Nitrite Negative (NEGATIVE) 01/10/20 16:00 Urine Bilirubin Negative (NEGATIVE) 01/10/20 16:00 Urine Urobilinogen 1.0 mg/dL (0.2-1.0) 01/10/20 16:00 Ur Leukocyte Esterase Negative (NEGATIVE) 01/10/20 16:00 Urine WBC (Auto) 76.2 /uL (0-25.8) 01/10/20 16:00 Urine RBC (Auto) 27 /uL (0-23.9) 01/10/20 16:00 Urine Casts (Auto) 57 /uL (0-3.1) 01/10/20 16:00 U Pathogenic Cast Auto Negative /lpf (NEGATIVE) 01/10/20 16:00 U Epithel Cells (Auto) >36 /uL (0-25.1) 01/10/20 16:00 Urine Bacteria (Auto) 259.1 /uL (0-1359) 01/10/20 16:00 Active Medications Chlorhexidine Gluconate (Hibiclens For Decolonization -) 1 applic TP HS LANCE Sodium Chloride (Normal Saline -) 250 mls @ 3,000 mls/hr IV PRN PRN PRN Reason: Hypotension during Dialysis Stop: 01/10/20 22:00 Sodium Bicarbonate 150 meq/ (Dextrose) 1,150 mls @ 125 mls/hr IV Q10H LANCE Last Admin: 01/10/20 18:59 Dose: Not Given Documented by: Meropenem 500 mg/ Dextrose 100 mls @ 200 mls/hr IVPB Q8H-IV LANCE Insulin Aspart (Novolog Vial Sliding Scale -) 1 vial SQ ACHS LANCE; Protocol Mupirocin (Bactroban Ointment (For Decolonization) -) 1 applic NS BID LANCE Stop: 01/15/20 21:59 ASSESSMENT/PLAN: 54 year old female w/ PMH CKD , afib (on Eliquis), DM, HTN, chronic LE ulcers (dresses them herself). Vitals upon arrival: hypotensive @ BP 84/40, tachycardic HR 124, Afebrile. Pt found to have elevated WBC 22.4, hyperkalemia (7.7), uremia (BUN/Cr: 127/6.1), INR 1.23, ABG pH 7.18, pCO2 36.8, Hco3 13.4. Given the history and laboratory findings, pt likely has septic shock and is admitted to the ICU due to need for vasopressors. Neuro Mildly responsive, disoriented - 0.1 ativan for agitiation secondary to central catheter insertion -c/w neuro checks Cardio Afib hypotensive unresponsive to fluid resuscitation s/p 3L LR HTN -will attempt central venous access for pressor support if needed to maintain MAP >65 -resume eliquis 5 BID -hold home HTN meds due to septic shock Pulmonary -ventimask, maintain O2 sat >90% -unable to assess good waveform on pulse ox, will continue to monitor O2 st atus -ABG showing acidemia -PRN suctioning for oral secretions -CXR possible LLL infiltrates GI no acute issues Endo DM -hold home PO meds implement ISS + BGM ACHS ID septic shock cellulitis - 1 dose meropenem, will continue - 1g vanc given - f/u cultures -Vascular surgeon consulted for LE ulcers. pending reccs. Renal Renal failure CKD -Emergent HD as per Dr. Epstein. Treat potassium medically. -initiate Bicarb drip -s/p hyperkalemia cocktail -Monitor I/O's -F/u CMP FEN - no standing fluids, given1 L bolus w/ HD - monitor and replete electrolytes - NPO LTD -faith almodovar 01/09 Ppx -DVT: SCD Dispo: continue ICU monitoring. Family Medical History Family History: Unable to Obtain Visit type - Emergency Visit Emergency Visit: Yes ED Registration Date: 01/10/20 Care time: The patient presented to the Emergency Department on the above date and was hospitalized for further evaluation of their emergent condition. - New Patient This patient is new to me today: Yes Date on this admission: 01/10/20 - Critical Care Critical Care patient: Yes Total Critical Care Time (in minutes): 37 Critical Care Statement: The care of this patient involved high complexity decision making to prevent further life threatening deterioration of the patient's condition and/or to evaluate & treat vital organ system(s) failure or risk of failure. ATTENDING PHYSICIAN STATEMENT I saw and evaluated the patient. I reviewed the resident's note and discussed the case with the resident. I agree with the resident's findings and plan as documented. SUBJECTIVE: OBJECTIVE: ASSESSMENT AND PLAN:
[2020-01-10] MEDS ORDERED: MEROPENEM 500 MG in DEXTROSE 5%-WATER 100 ML IVPB SCH (20:00)
[2020-01-10] MEDS ORDERED: RAPID SEQUENCE INTUBATION KIT NR ONE (20:41)
[2020-01-10] MEDS ORDERED: PROPOFOL 1,000,000 MCG/100 ML VIAL IVPB SCH (20:45)
[2020-01-10 21:00] LABS: HEMATOCRIT 35.5 % (32.4-45.2); HEMOGLOBIN 11.2 GM/dL (10.7-15.3); MCH 28.7 pg (25.7-33.7); MCHC 31.7 g/dl (32.0-36.0); MEAN CELL VOLUME 90.6 fl (80-96); MEAN PLT VOLUME 9.5 fl (7.5-11.1); PLATELET COUNT 251 K/MM3 (134-434); RBC 3.92 M/mm3 (3.60-5.2); RDW 15.9 % (11.6-15.6); WHITE BLOOD COUNT 13.1 K/mm3 (4.0-10.0)
[2020-01-10 21:22] LABS: ALBUMIN 2.8 g/dl (3.4-5.0); BILIRUBIN,TOTAL 1.2 mg/dL (0.2-1); BLOOD UREA NITROGEN 64.9 mg/dL (7-18); CALCIUM 8.5 mg/dL (8.5-10.1); POTASSIUM 4.7 mmol/L (3.5-5.1)
[2020-01-10] MEDS ORDERED: SODIUM CHLORIDE 1,000 ML IV SCH (21:30)
[2020-01-10] MEDS ORDERED: HEPARIN NA (PORCINE) 5,000 UNITS/ML 1ML VIAL SQ SCH (22:00)
[2020-01-10 22:23] LABS: ARTERIAL BLD GAS O2 SATURATION 97.9 mmHg (95-98); ARTERIAL BLOOD GAS BASE EXCESS -12.5 mmol/L (-2-2); ARTERIAL BLOOD GAS PO2 121.3 mmHg (80-100); ARTERIAL BLOOD GAS pH 7.257 (7.350-7.450)
[2020-01-10 22:27] LABS: VENT MODE A/C; VENT RATE 12
[2020-01-10] MEDS ORDERED: FENTANYL IVPB 500 MCG/100 ML BAG IVPB SCH (22:45)
[2020-01-10] MEDS: CHLORHEXIDINE GLUCONATE 4% CLEANSER FOR DECOLONIZATION TP SCH (23:00)
[2020-01-10] MEDS ORDERED: VASOPRESSIN 40 UNITS in SODIUM CHLORIDE 98 ML IVPB SCH (23:15)
[2020-01-10] MEDS: MUPIROCIN 2% TOPICAL OINTMENT FOR DECOLONIZATION NS SCH (23:45)
[2020-01-11] MEDS ORDERED: MEROPENEM 1 GM in DEXTROSE 5%-WATER 100 ML IVPB SCH (00:01)
[2020-01-11] MEDS ORDERED: PROPOFOL 1,000,000 MCG/100 ML VIAL ONE ×2 (00:01→02:38)
[2020-01-11] MEDS ORDERED: MEROPENEM 1 GM VIAL (RESTRICTED TO ID) IVPB ONE ×3 (02:47→20:32)
[2020-01-11] MEDS ORDERED: SODIUM CHLORIDE 100 ML IVPB ONE ×3 (02:48→20:32)
[2020-01-11] MEDS ORDERED: FENTANYL NS IVPB 500 MCG/100 ML BAG IVPB ONE (02:49)
[2020-01-11 02:55] LABS: BASO % 0.3 % (0-2.0); EOS % 0.6 % (0-4.5); HEMATOCRIT 31.3 % (32.4-45.2); HEMOGLOBIN 9.8 GM/dL (10.7-15.3); LYMPH % 1.3 % (8-40); MCH 28.2 pg (25.7-33.7); MCHC 31.3 g/dl (32.0-36.0); MEAN PLT VOLUME 10.4 fl (7.5-11.1); MONO % 1.4 % (3.8-10.2); NEUT % 96.4 % (42.8-82.8); PLATELET COUNT 257 K/MM3 (134-434); RBC 3.48 M/mm3 (3.60-5.2); RDW 15.9 % (11.6-15.6); WHITE BLOOD COUNT 25.3 K/mm3 (4.0-10.0)
[2020-01-11 03:09] LABS: ALBUMIN 2.2 g/dl (3.4-5.0); BILIRUBIN,TOTAL 1.4 mg/dL (0.2-1); CALCIUM 8.2 mg/dL (8.5-10.1); CREATININE 4.4 mg/dL (0.55-1.3); POTASSIUM 5.7 mmol/L (3.5-5.1); TOT PROT 5.7 g/dl (6.4-8.2)
[2020-01-11] MEDS ORDERED: MIDAZOLAM IN 0.9 % SOD.CHLORID 1 MG/1 ML PLAST..BAG ONE (03:13)
[2020-01-11] MEDS ORDERED: CALCIUM GLUCONATE 10% - 1,000 MG/10 ML VIAL IVPUSH ONE (03:35)
[2020-01-11] MEDS ORDERED: INSULIN REGULAR HUMAN 100 UNITS/ML *VIAL IVPUSH ONE (03:36)
[2020-01-11] MEDS ORDERED: DEXTROSE 50%-WATER - 25 GM/50 ML VIAL IVPUSH ONE (03:36)
[2020-01-11] MEDS ORDERED: SODIUM BICARBONATE 8.4% 50 MEQ/50 ML DISP.SYRIN IVPUSH ONE (03:39)
[2020-01-11] MEDS: APIXABAN 5 MG TABLET PO SCH ×2 (04:45→23:00)
[2020-01-11] MEDS: INSULIN SLIDING SCALE (NOVOLOG) 1 VIAL SQ SCH ×4 (04:47→22:13)
[2020-01-11] MEDS: MIDAZOLAM IN 0.9 % SOD.CHLORID 100 MG/100 ML PLAST..BAG IVPB SCH ×3 (04:48→21:58)
[2020-01-11] MEDS: NOREPINEPHRINE BITARTRATE 8,000 MCG/500 ML BAG IVPB SCH ×2 (04:49→13:27)
[2020-01-11] MEDS: MEROPENEM 1 GM in SODIUM CHLORIDE 100 ML IVPB SCH ×4 (04:49→21:58)
[2020-01-11] MEDS ORDERED: DEXTROSE 50%-WATER 25 GM/50 ML DISP.SYRIN ONE (04:59)
[2020-01-11] MEDS: PHENYLEPHRINE NS PREMIX 50,000 MCG/500 ML BAG CVP SCH (05:00)
[2020-01-11] MEDS: HYDROCORTISONE SOD SUCCINATE 100 MG/2 ML VIAL IVPB SCH ×4 (05:01→21:56)
--- NOTE | 2020-01-11 05:16 | PN ---
Physical Exam: SUBJECTIVE: Patient seen and examined at bedside. Pt was admitted to ICU for s/p fall w/ unknown down time, NOVA (requiring emergent HD). Upon my evaluation, pt had HD today as per Dr. Epstein. Repeat labs show improvement in acidosis and hyperkalemia. However, requires lokelma and hyperkalemia cocktail as per Nephrology. After HD completed, pt noted to be rigoring, gurgling voice, not following commands. Decision made to intubate pt for concern for airway compromise. Pt is currently intubated and sedated. BP noted to be very variable. Multiple attempts for A-line unsuccessful due to clotting. At around 3AM, pt noted to have persistent MAPs ~40s. Emergent central access obtained. Pt placed on Levophed, vasopressin and phenylephrine with hydrocortisone and fludricortisone. Of note: pt reported to have fall w/o LOC or head injury, however, pt on Eliquis, concern for potential CVA. However, pt too unstable for CT head. OBJECTIVE: Vital Signs Period Temp Pulse Resp BP Sys/Callahan Pulse Ox Last 24 Hr 97.2 F-98.1 F 96-148 12-30 75-186/38-168 88-99 GENERAL: intubated and sedated HEENT: NCAT, ETT in place. NG tube in place. Cardiac: tachycardic. S1, S2 present, no murmurs Respiratory: Vent sounds present b/l, decreased breath sounds at bases. GI: Obese, bowel sounds present. Soft, non-distended Extremities: cold extremities, no pitting edema. Skin: b/l chronic venous stasis b/l lower extremities Laboratory Last Values WBC 25.3 K/mm3 (4.0-10.0) H 01/11/20 02:00 RBC 3.48 M/mm3 (3.60-5.2) L 01/11/20 02:00 Hgb 9.8 GM/dL (10.7-15.3) L 01/11/20 02:00 Hct 31.3 % (32.4-45.2) L 01/11/20 02:00 MCV 90.0 fl (80-96) 01/11/20 02:00 MCH 28.2 pg (25.7-33.7) 01/11/20 02:00 MCHC 31.3 g/dl (32.0-36.0) L 01/11/20 02:00 RDW 15.9 % (11.6-15.6) H 01/11/20 02:00 Plt Count 257 K/MM3 (134-434) 01/11/20 02:00 MPV 10.4 fl (7.5-11.1) 01/11/20 02:00 Absolute Neuts (auto) 24.4 K/mm3 (1.5-8.0) H 01/11/20 02:00 Neutrophils % 96.4 % (42.8-82.8) H 01/11/20 02:00 Neutrophils % (Manual) 90.5 % (42.8-82.8) H 01/10/20 11:10 Band Neutrophils % 0.0 % 01/10/20 11:10 Lymphocytes % 1.3 % (8-40) L D 01/11/20 02:00 Lymphocytes % (Manual) 7.4 % (8-40) L D 01/10/20 11:10 Monocytes % 1.4 % (3.8-10.2) L 01/11/20 02:00 Monocytes % (Manual) 2 % (3.8-10.2) L D 01/10/20 11:10 Eosinophils % 0.6 % (0-4.5) 01/11/20 02:00 Eosinophils % (Manual) 0.0 % (0-4.5) D 01/10/20 11:10 Basophils % 0.3 % (0-2.0) 01/11/20 02:00 Basophils % (Manual) 0.0 % (0-2.0) 01/10/20 11:10 Myelocytes % (Man) 0 % (0-2) D 01/10/20 11:10 Promyelocytes % (Man) 0 % (0-2) 01/10/20 11:10 Blast Cells % (Manual) 0 % (0-0) 01/10/20 11:10 Nucleated RBC % 0 % (0-0) 01/11/20 02:00 Metamyelocytes 0 % (0-2) 01/10/20 11:10 Hypochromia 0 01/10/20 11:10 Platelet Estimate Normal 01/10/20 11:10 Polychromasia 0 01/10/20 11:10 Poikilocytosis 0 01/10/20 11:10 Anisocytosis 0 01/10/20 11:10 Microcytosis 0 01/10/20 11:10 Macrocytosis 1+ 01/10/20 11:10 PT with INR 14.50 SEC (9.7-13.0) H 01/10/20 11:10 INR 1.23 (0.83-1.09) H 01/10/20 11:10 PTT (Actin FS) 34.8 SECONDS (25.2-36.5) 01/10/20 11:10 Anticoagulation Therapy No Result Required. 01/10/20 22:12 Puncture Site Right radial 01/10/20 22:12 Patient Temperature No Result Required. 01/10/20 22:12 ABG pH 7.257 (7.350-7.450) L 01/10/20 22:12 ABG pCO2 30.60 mmHg (35-45) L 01/10/20 22:12 ABG pO2 121.3 mmHg (80-100) H 01/10/20 22:12 ABG HCO3 13.3 mmol/L (22-27) L 01/10/20 22:12 ABG O2 Sat (Measured) 97.9 mmHg (95-98) 01/10/20 22:12 ABG O2 Content No Result Required. 01/10/20 22:12 ABG Base Excess -12.5 mmol/L (-2-2) L 01/10/20 22:12 Kwesi Test No Result Required. 01/10/20 22:12 Patient On Oxygen Yes 01/10/20 22:12 O2 Delivery Device Vent 01/10/20 22:12 Oxygen Flow Rate 50% 01/10/20 22:12 Vent Mode A/c 01/10/20 22:12 Vent Rate 12 01/10/20 22:12 Mechanical Rate No Result Required. 01/10/20 22:12 PEEP 5.0 cmH2O 01/10/20 22:12 Pressure Support Vent 500 01/10/20 22:12 Sodium 139 mmol/L (136-145) 01/11/20 02:00 Potassium 5.7 mmol/L (3.5-5.1) H 01/11/20 02:00 Chloride 111 mmol/L (98-107) H 01/11/20 02:00 Carbon Dioxide 15 mmol/L (21-32) L 01/11/20 02:00 Anion Gap 13 MMOL/L (8-16) 01/11/20 02:00 BUN 88.0 mg/dL (7-18) H 01/11/20 02:00 Creatinine 4.4 mg/dL (0.55-1.3) H 01/11/20 02:00 Est GFR (CKD-EPI)AfAm 12.16 01/11/20 02:00 Est GFR (CKD-EPI)NonAf 10.49 01/11/20 02:00 POC Glucometer 171 UNITS (80-120) 01/10/20 22:51 Random Glucose 217 mg/dL (74-106) H 01/11/20 02:00 Lactic Acid 0.6 mmol/L (0.4-2.0) 01/10/20 11:18 Calcium 8.2 mg/dL (8.5-10.1) L 01/11/20 02:00 Phosphorus 8.3 mg/dL (2.5-4.9) H 01/10/20 11:10 Magnesium 2.7 mg/dL (1.8-2.4) H 01/10/20 11:10 Total Bilirubin 1.4 mg/dL (0.2-1) H 01/11/20 02:00 AST 30 U/L (15-37) 01/11/20 02:00 ALT 32 U/L (13-61) 01/11/20 02:00 Alkaline Phosphatase 170 U/L (45-117) H 01/11/20 02:00 Creatine Kinase 53 U/L (26-192) 01/11/20 02:00 Troponin I < 0.02 ng/ml (0.00-0.05) 01/10/20 11:10 Total Protein 5.7 g/dl (6.4-8.2) L 01/11/20 02:00 Albumin 2.2 g/dl (3.4-5.0) L 01/11/20 02:00 Urine Color Dk yellow 01/10/20 16:00 Urine Appearance Turbid 01/10/20 16:00 Urine pH 5.0 (5.0-8.0) 01/10/20 16:00 Ur Specific Hartwick 1.027 (1.010-1.035) 01/10/20 16:00 Urine Protein 1+ (NEGATIVE) H 01/10/20 16:00 Urine Glucose (UA) Trace (NEGATIVE) 01/10/20 16:00 Urine Ketones Trace (NEGATIVE) H 01/10/20 16:00 Urine Blood Negative (NEGATIVE) 01/10/20 16:00 Urine Nitrite Negative (NEGATIVE) 01/10/20 16:00 Urine Bilirubin Negative (NEGATIVE) 01/10/20 16:00 Urine Urobilinogen 1.0 mg/dL (0.2-1.0) 01/10/20 16:00 Ur Leukocyte Esterase Negative (NEGATIVE) 01/10/20 16:00 Urine WBC (Auto) 76.2 /uL (0-25.8) 01/10/20 16:00 Urine RBC (Auto) 27 /uL (0-23.9) 01/10/20 16:00 Urine Casts (Auto) 57 /uL (0-3.1) 01/10/20 16:00 U Pathogenic Cast Auto Negative /lpf (NEGATIVE) 01/10/20 16:00 U Epithel Cells (Auto) >36 /uL (0-25.1) 01/10/20 16:00 Urine Bacteria (Auto) 259.1 /uL (0-1359) 01/10/20 16:00 Active Medications Apixaban (Eliquis -) 5 mg PO BID [facility] Last Admin: 01/11/20 04:45 Dose: Not Given Documented by: Chlorhexidine Gluconate (Hibiclens For Decolonization -) 1 applic TP HS [facility] Last Admin: 01/10/20 23:00 Dose: 1 applic Documented by: Fludrocortisone Acetate (Florinef -) 0.2 mg PO DAILY [facility] Hydrocortisone Sodium Succinate (Solu-Cortef -) 50 mg IVPB Q6H-IV [facility] Last Admin: 01/11/20 05:01 Dose: 50 mg Documented by: Sodium Chloride (Normal Saline -) 1,000 mls @ 125 mls/hr IV ASDIR [facility] Last Admin: 01/11/20 01:00 Dose: 125 mls/hr Documented by: Meropenem 1 gm/ Sodium (Chloride) 100 mls @ 200 mls/hr IVPB Q12H [facility] Fentanyl (Sublimaze Ivpb) 500 mcg in 100 mls @ 1 mls/hr IVPB TITR [facility]; Protocol Midazolam HCl (Midazolam 100mg/100ml-0.9%Nacl) 100 mg in 100 mls @ 1 mls/hr IVPB TITR [facility]; Protocol Last Admin: 01/11/20 04:48 Dose: 10 mg/hr, 10 mls/hr Documented by: Meropenem 1 gm/ Sodium (Chloride) 100 mls @ 200 mls/hr IVPB Q12H [facility] Stop: 01/11/20 12:30 Last Admin: 01/11/20 04:49 Dose: 200 mls/hr Documented by: Norepinephrine Bitartrate (Levophed Bag) 8,000 mcg in 500 mls @ 18.75 mls/hr IVPB TITR [facility]; Protocol Last Admin: 01/11/20 04:49 Dose: 30 mcg/min, 112.5 mls/hr Documented by: Phenylephrine HCl (Sage-Synephrine) 50,000 mcg in 500 mls @ 54 mls/hr CVP ASDIR [facility]; Protocol Last Admin: 01/11/20 05:00 Dose: 90 mcg/min, 54 mls/hr Documented by: Insulin Aspart (Novolog Vial Sliding Scale -) 1 vial SQ ACHS [facility]; Protocol Last Admin: 01/11/20 04:47 Dose: Not Given Documented by: Mupirocin (Bactroban Ointment (For Decolonization) -) 1 applic NS BID [facility] Stop: 01/15/20 21:59 Last Admin: 01/10/20 23:45 Dose: 1 applic Documented by: Sodium Zirconium Cyclosilicate (Lokelma) 10 gm PO DAILY [facility] ASSESSMENT/PLAN: 54 year old female w/ PMH CKD , afib (on Eliquis), DM, HTN, chronic LE ulcers (dresses them herself). Vitals upon arrival: hypotensive @ BP 84/40, tachycardic HR 124, Afebrile. Pt found to have elevated WBC 22.4, hyperkalemia (7.7), uremia (BUN/Cr: 127/6.1), INR 1.23, ABG pH 7.18, pCO2 36.8, Hco3 13.4. Given the history and laboratory findings, pt likely has septic shock and is admitted to the ICU due to need for vasopressors. Neuro Mildly responsive, disoriented - 0.1 ativan for agitiation secondary to central catheter insertion -c/w neuro checks - CT head when pt stable Cardio Afib hypotensive unresponsive to fluid resuscitation s/p 3L LR HTN - c/w levophed, phenylephrine, vasopressin support to maintain MAP >65 -resume eliquis 5 BID -hold home HTN meds due to septic shock Pulmonary -intubated - monitor and maintain Spo2>90% -ABG showing acidemia -PRN suctioning for oral secretions -CXR possible LLL infiltrates GI no acute issues Endo DM -hold home PO meds and initiate ISS + BGM ACHS ID septic shock cellulitis - c/w Meropenem - 1g vanc given - f/u cultures -Vascular surgeon consulted for LE ulcers with pending recommendations Renal Renal failure CKD -Nephro consulted. Emergent HD as per Dr. Epstein. Treat potassium medically. -initiate Bicarb drip -s/p hyperkalemia cocktail -Monitor I/O's -F/u CMP FEN - NS @ 125 - monitor and replete electrolytes - NPO LTD -faith almodovar 01/09 - LISA 01/10 Ppx -DVT: SCD Dispo: continue ICU monitoring. Visit type - Emergency Visit Emergency Visit: Yes ED Registration Date: 01/10/20 Care time: The patient presented to the Emergency Department on the above date and was hospitalized for further evaluation of their emergent condition. - New Patient This patient is new to me today: No - Critical Care Critical Care patient: Yes Total Critical Care Time (in minutes): 38 Critical Care Statement: The care of this patient involved high complexity decision making to prevent further life threatening deterioration of the patient's condition and/or to evaluate & treat vital organ system(s) failure or risk of failure. ATTENDING PHYSICIAN STATEMENT I saw and evaluated the patient. I reviewed the resident's note and discussed the case with the resident. I agree with the resident's findings and plan as documented. SUBJECTIVE: OBJECTIVE: ASSESSMENT AND PLAN:
[2020-01-11 05:34] LABS: PLATELET ESTIMATE ADEQUATE
--- NOTE | 2020-01-11 06:16 | PROC ---
Intubation - Intubation Reason for Intubation: Airway Protection Time of Intubation: 20:00 Intubation Method: orotracheal Blade used: Glidescope Tube Size (cm): 7.5 Tube position @ lip (cm): 20 Tube position confirmed by: Direct visualization, CO2 detector, Chest x-ray, Breath sounds Breath Sounds after Intubation: equal Post Intubation Xray: Yes
--- NOTE | 2020-01-11 06:18 | PROC ---
Central Line Insertion Indication: Vasopressor Risks and Benefits Explained: Yes Consent on Chart: Yes Central Line: Triple Lumen Catheter Anesthesia: other Sterile Technique: Yes Ultrasound Guided Assistance: Yes Position: Left Internal Jugular Post Insertion: Yes: Bilateral Breath Sounds, Bilateral Chest Expansion, Chest X-Ray Ordered Sterile Dressing Applied: Yes
[2020-01-11] MEDS: VASOPRESSIN 40 UNITS in SODIUM CHLORIDE 98 ML IVPB SCH ×2 (08:00→13:28)
--- NOTE | 2020-01-11 08:05 | PN ---
Progress Note, Physician - Current Medication List Current Medications: Active Medications Apixaban (Eliquis -) 5 mg PO BID [facility] Last Admin: 01/11/20 04:45 Dose: Not Given Documented by: Chlorhexidine Gluconate (Hibiclens For Decolonization -) 1 applic TP HS [facility] Last Admin: 01/10/20 23:00 Dose: 1 applic Documented by: Fludrocortisone Acetate (Florinef -) 0.2 mg PO DAILY [facility] Hydrocortisone Sodium Succinate (Solu-Cortef -) 50 mg IVPB Q6H-IV [facility] Last Admin: 01/11/20 05:01 Dose: 50 mg Documented by: Sodium Chloride (Normal Saline -) 1,000 mls @ 125 mls/hr IV ASDIR [facility] Last Admin: 01/11/20 01:00 Dose: 125 mls/hr Documented by: Meropenem 1 gm/ Sodium (Chloride) 100 mls @ 200 mls/hr IVPB Q12H [facility] Midazolam HCl (Midazolam 100mg/100ml-0.9%Nacl) 100 mg in 100 mls @ 1 mls/hr IVPB TITR [facility]; Protocol Last Admin: 01/11/20 04:48 Dose: 10 mg/hr, 10 mls/hr Documented by: Meropenem 1 gm/ Sodium (Chloride) 100 mls @ 200 mls/hr IVPB Q12H [facility] Stop: 01/11/20 12:30 Last Admin: 01/11/20 04:49 Dose: 200 mls/hr Documented by: Norepinephrine Bitartrate (Levophed Bag) 8,000 mcg in 500 mls @ 18.75 mls/hr IVPB TITR [facility]; Protocol Last Admin: 01/11/20 04:49 Dose: 30 mcg/min, 112.5 mls/hr Documented by: Phenylephrine HCl (Sage-Synephrine) 50,000 mcg in 500 mls @ 54 mls/hr CVP ASDIR [facility]; Protocol Last Admin: 01/11/20 05:00 Dose: 90 mcg/min, 54 mls/hr Documented by: Fentanyl (Sublimaze Ivpb) 500 mcg in 100 mls @ 20 mls/hr IVPB TITR [facility]; Protocol Insulin Aspart (Novolog Vial Sliding Scale -) 1 vial SQ ACHS COUNT [facility]CLUD[facility]; Protocol Last Admin: 01/11/20 04:47 Dose: Not Given Documented by: Mupirocin (Bactroban Ointment (For Decolonization) -) 1 applic NS BID [facility]CLUD[facility] Stop: 01/15/20 21:59 Last Admin: 01/10/20 23:45 Dose: 1 applic Documented by: Sodium Zirconium Cyclosilicate (Lokelma) 10 gm PO DAILY [facility]CLUD[facility] - Objective Vital Signs: Vital Signs Temperature 98.2 F 01/11/20 05:00 Pulse Rate 90 01/11/20 05:00 Respiratory Rate 25 H 01/11/20 05:00 Blood Pressure 90/52 L 01/11/20 05:00 O2 Sat by Pulse Oximetry (%) 90 L 01/11/20 05:00 Cardiovascular: Yes: S1, S2 Respiratory: Yes: Mechanically Ventilated Gastrointestinal: Yes: Normal Bowel Sounds, Soft Edema: Yes Wound/Incision: Yes: Dressing Removed, Reddened, Excoriated, Unapproximated Labs: CBC, BMP 01/11/20 02:00 01/11/20 02:00 INR, PTT INR 1.23 (0.83-1.09) H 01/10/20 11:10 Problem List - Problems (1) Septic shock Assessment/Plan: IV ABX ID CONSULT CULTURES Code(s): A41.9 - SEPSIS, UNSPECIFIED ORGANISM; R65.21 - SEVERE SEPSIS WITH SEPTIC SHOCK (2) Respiratory failure Assessment/Plan: VENT ICU CARE PULM CONSULT Code(s): J96.90 - RESPIRATORY FAILURE, UNSP, UNSP W HYPOXIA OR HYPERCAPNIA (3) Diabetic calf ulcer Assessment/Plan: SURGICAL CONSULT IV ABX Code(s): E11.622 - TYPE 2 DIABETES MELLITUS WITH OTHER SKIN ULCER; L97.209 - NON-PRESSURE CHRONIC ULCER OF UNSP CALF WITH UNSP SEVERITY (4) Cellulitis Assessment/Plan: IV ABX WOUND CARE Code(s): L03.90 - CELLULITIS, UNSPECIFIED Qualifiers: Site of cellulitis: unspecified site Qualified Code(s): L03.90 - Cellulitis, unspecified
[2020-01-11] MEDS ORDERED: SODIUM CHLORIDE 250 ML IV PRN (08:07)
[2020-01-11] MEDS: SODIUM CHLORIDE 1,000 ML IV SCH (09:00)
--- NOTE | 2020-01-11 09:47 | CON.ID ---
Consult Consult Specialty:: infectious disease Referred by:: dr franklin Reason for Consultation:: septic shock - History of Present Illness Chief Complaint: weakness History of Present Illness: 54 yo female admitted with weakness, fell at home BIBEMS noted to be hypotensive 75/41 found to be in acute renal failure EMS reports unkempt, dirty apt femoral line placed for HD intubated overnight and left IJ placed now sedated, on 3 pressors intubated denied fever and chills in ED c/o weakness and decreased urine output - History Source History Provided By: Medical Record Limitations to Obtaining History: Clinical Condition - Past Medical History Cardio/Vascular: Yes: AFIB, HTN Pulmonary: Yes: Asthma Gastrointestinal: Yes: Other (gallstones) Hepatobiliary: Yes: Cholelithiasis (passed without surgery), Other (fatty liver) Renal/: Yes: Renal Inusuff ...LMP: 01/10/20 ...: No Infectious Disease: Yes: Other (LE cellulitis) Psych: Yes: Bipolar Endocrine: Yes: Diabetes Mellitus Dermatology: Yes: Cellulitis (b/l LE with ulcerations) Additional Medical History: obesity - Alcohol/Substance Use Hx Alcohol Use: No History of Substance Use: reports: Prescription (narcotics) - Smoking History Smoking history: Former smoker Have you smoked in the past 12 months: No Aproximately how many cigarettes per day: 0 If you are a former smoker, when did you quit?: quit age 13 - Social History Usual Living Arrangement: With Spouse ADL: Independent 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 History of Recent Travel: No Home Medications - Allergies Allergies/Adverse Reactions: Allergies Allergy/AdvReac Type Severity Reaction Status Date / Time nut - unspecified Allergy Verified 01/10/20 10:59 Penicillins Allergy Verified 01/10/20 10:59 walnut Allergy Verified 01/10/20 10:59 caviar Allergy Uncoded 01/10/20 10:59 - Home Medications Home Medications: Ambulatory Orders Acetaminophen [Tylenol .Regular Strength -] 650 mg PO Q6H PRN tablet 11/05/19 Albuterol Sulfate Inhaler - [Ventolin HFA Inhaler -] 2 puff IH Q4H PRN #1 i nhaler 11/05/19 Apixaban [Eliquis -] 5 mg PO BID #60 tablet 11/05/19 Budesonide/Formeterol Fumarate [SYMBICORT 80/4.5mcg -] 2 puff IH BID #1 inhaler 11/05/19 Doxycycline Hyclate [Vibramycin -] 100 mg PO BID@1000,1800 #14 capsule 11/05/19 Ferrous Sulfate [Iron] 325 mg PO BID #60 tablet 11/05/19 Folic Acid 1 mg PO DAILY #30 tablet 11/05/19 Furosemide [Lasix -] 20 mg PO DAILY #30 tablet 11/05/19 Gabapentin [Neurontin -] 600 mg PO TID #180 capsule 11/05/19 Insulin Glargine,Hum.rec.anlog [Toujeo Max Solostar] 10 unit SQ BID #1 insuln.pen 11/05/19 Lancets [Lancets Thin] 1 each ACHS #120 each 11/05/19 Magnesium Oxide [Mag-Ox -] 400 mg PO BID #60 tablet 11/05/19 Nystatin Cream [Mycostatin Cream -] 1 applic TP BID 30 Days #1 applic 11/05/19 Pantoprazole Sodium [Protonix -] 40 mg PO DAILY #60 tablet.ec 11/05/19 Polyethylene Glycol 3350 [Miralax 119 gm Btl -] 17 gm PO DAILY #1 bottle 11/05/19 oxyCODONE HCL [Roxicodone -] 5 mg PO Q6H PRN #120 tablet MDD 4 11/05/19 Insulin Detemir [Levemir Flextouch] 10 unit SQ BID #5 insuln.pen 11/06/19 traMADol HCL [Ultram -] 50 mg PO Q8H 7 Days #21 tablet MDD 3 11/06/19 Family Medical History Family History: Denies Review of Systems - Review of Systems Constitutional: reports: Weakness. denies: Chills, Fever Physical Exam Vital Signs: Vital Signs Temperature 98.2 F 01/11/20 05:00 Pulse Rate 90 01/11/20 09:00 Respiratory Rate 16 01/11/20 09:00 Blood Pressure 106/70 01/11/20 09:00 O2 Sat by Pulse Oximetry (%) 99 01/11/20 08:25 Constitutional: Yes: Well Nourished Eyes: Yes: Conjunctiva Clear HENT: Yes: Atraumatic, Pharyngeal Erythema Neck: Yes: Supple Cardiovascular: Yes: Regular Rate and Rhythm Respiratory: Yes: Regular, Diminished (at bases) Gastrointestinal: Yes: Soft, Abdomen, Obese, Tenderness, Rebound. No: Tenderness Extremities: Yes: Other (bilateral lower extemity ulcers minimal erythema, no drainage) Edema: No Labs: CBC, BMP 01/11/20 02:00 01/11/20 02:00 Microbiology 01/10/20 11:10 Leg - Right Lower Gram Stain - Final 01/10/20 11:10 Leg - Right Lower Wound Culture - Preliminary Lactose Fermenting Neg Bacilli Proteus Species Streptococcus Species Imaging - Results Chest X-ray: Report Reviewed, Image Reviewed Problem List - Problems (1) Septic shock Code(s): A41.9 - SEPSIS, UNSPECIFIED ORGANISM; R65.21 - SEVERE SEPSIS WITH SEPTIC SHOCK (2) ARF (acute renal failure) Code(s): N17.9 - ACUTE KIDNEY FAILURE, UNSPECIFIED Qualifiers: Acute renal failure type: unspecified Qualified Code(s): N17.9 - Acute kidney failure, unspecified (3) Respiratory failure Code(s): J96.90 - RESPIRATORY FAILURE, UNSP, UNSP W HYPOXIA OR HYPERCAPNIA (4) Penicillin allergy Code(s): Z88.0 - ALLERGY STATUS TO PENICILLIN Assessment/Plan s/p HD continue vancomycin by levels- level ordered for today continue meropenem taper pressors HD per renal overall prognosis is critical f/u cultures
[2020-01-11] MEDS ORDERED: FENTANYL IVPB 500 MCG/100 ML BAG IVPB ONE (10:19)
[2020-01-11] MEDS: SODIUM ZIRCONIUM CYCLOSILICATE (LOKELMA) 5 GM PACKET PO SCH (10:58)
[2020-01-11] MEDS: PROPOFOL 1,000,000 MCG/100 ML VIAL IVPB SCH ×2 (10:58→12:15)
[2020-01-11] MEDS: FLUDROCORTISONE ACETATE 0.1 MG TABLET (FP) PO SCH (10:59)
[2020-01-11] MEDS: MUPIROCIN 2% TOPICAL OINTMENT FOR DECOLONIZATION NS SCH ×2 (11:00→21:57)
[2020-01-11 11:19] LABS: BASO % 0.1 % (0-2.0); HEMATOCRIT 33.3 % (32.4-45.2); HEMOGLOBIN 10.6 GM/dL (10.7-15.3); LYMPH % 0.9 % (8-40); MCH 28.4 pg (25.7-33.7); MEAN CELL VOLUME 88.8 fl (80-96); PLATELET COUNT 349 K/MM3 (134-434); RBC 3.75 M/mm3 (3.60-5.2); RDW 15.9 % (11.6-15.6)
[2020-01-11 11:24] LABS: WHITE BLOOD COUNT 39.2 K/mm3 (4.0-10.0)
[2020-01-11 11:41] LABS: INR 1.54 (0.83-1.09); PROTHROMBIN TIME (PATIENT) 18.3 SEC (9.7-13.0)
[2020-01-11 11:43] LABS: ACTIVATED PTT 32.4 SECONDS (25.2-36.5)
--- NOTE | 2020-01-11 11:44 | PN ---
Progress Note, Physician History of Present Illness: Pt seen and examined at bedside. She is now intubated. She remains in the ICU. - Current Medication List Current Medications: Active Medications Apixaban (Eliquis -) 5 mg PO BID [facility] Last Admin: 01/11/20 04:45 Dose: Not Given Documented by: Chlorhexidine Gluconate (Hibiclens For Decolonization -) 1 applic TP HS [facility] Last Admin: 01/10/20 23:00 Dose: 1 applic Documented by: Fludrocortisone Acetate (Florinef -) 0.2 mg PO DAILY [facility] Last Admin: 01/11/20 10:59 Dose: 0.2 mg Documented by: Hydrocortisone Sodium Succinate (Solu-Cortef -) 50 mg IVPB Q6H-IV [facility] Last Admin: 01/11/20 10:58 Dose: 50 mg Documented by: Meropenem 1 gm/ Sodium (Chloride) 100 mls @ 200 mls/hr IVPB BID [facility] Last Admin: 01/11/20 10:59 Dose: 200 mls/hr Documented by: Midazolam HCl (Midazolam 100mg/100ml-0.9%Nacl) 100 mg in 100 mls @ 1 mls/hr IVPB TITR [facility]; Protocol Last Admin: 01/11/20 10:00 Dose: 10 mg/hr, 10 mls/hr Documented by: Meropenem 1 gm/ Sodium (Chloride) 100 mls @ 200 mls/hr IVPB Q12H [facility] Stop: 01/11/20 12:30 Last Admin: 01/11/20 04:49 Dose: 200 mls/hr Documented by: Norepinephrine Bitartrate (Levophed Bag) 8,000 mcg in 500 mls @ 18.75 mls/hr IVPB TITR [facility]; Protocol Last Admin: 01/11/20 04:49 Dose: 30 mcg/min, 112.5 mls/hr Documented by: Phenylephrine HCl (Sage-Synephrine) 50,000 mcg in 500 mls @ 54 mls/hr CVP ASDIR [facility]; Protocol Last Admin: 01/11/20 05:00 Dose: 90 mcg/min, 54 mls/hr Documented by: Fentanyl (Sublimaze Ivpb) 500 mcg in 100 mls @ 20 mls/hr IVPB TITR [facility]; Protocol Sodium Chloride (Normal Saline -) 250 mls @ 3,000 mls/hr IV PRN PRN PRN Reason: Hypotension during Dialysis Stop: 01/12/20 08:07 Propofol (Diprivan -) 1,000,000 mcg in 100 mls @ 7.92 mls/hr IVPB TITR [facility]; Protocol Last Admin: 01/11/20 10:58 Dose: 50 mcg/kg/min, 39.6 mls/hr Documented by: Sodium Chloride (Normal Saline -) 1,000 mls @ 75 mls/hr IV ASDIR [facility] Last Admin: 01/11/20 09:00 Dose: 75 mls/hr Documented by: Vasopressin 40 units/ Sodium (Chloride) 100 mls @ 5 mls/hr IVPB [facility]; Protocol Last Admin: 01/11/20 08:00 Dose: 2 units/hr, 5 mls/hr Documented by: Insulin Aspart (Novolog Vial Sliding Scale -) 1 vial SQ ACHS [facility]; Protocol Last Admin: 01/11/20 04:47 Dose: Not Given Documented by: Mupirocin (Bactroban Ointment (For Decolonization) -) 1 applic NS BID [facility] Stop: 01/15/20 21:59 Last Admin: 01/11/20 11:00 Dose: 1 applic Documented by: Sodium Zirconium Cyclosilicate (Lokelma) 10 gm PO DAILY [facility] Last Admin: 01/11/20 10:58 Dose: 10 gm Documented by: - Objective Vital Signs: Vital Signs Temperature 98.2 F 01/11/20 05:00 Pulse Rate 83 01/11/20 10:20 Respiratory Rate 14 01/11/20 10:20 Blood Pressure 123/53 L 01/11/20 10:20 O2 Sat by Pulse Oximetry (%) 99 01/11/20 09:55 Constitutional: Yes: Calm Eyes: Yes: Conjunctiva Clear HENT: Yes: Atraumatic Neck: Yes: Supple Cardiovascular: Yes: S1, S2 Respiratory: Yes: Mechanically Ventilated Gastrointestinal: Yes: Normal Bowel Sounds, Soft, Abdomen, Obese Genitourinary: Yes: Johnson Present Musculoskeletal: Yes: Muscle Weakness Edema: Yes Edema: LLE: 1+, RLE: 1+ Integumentary: Yes: Other (various ulcers on lower ext) Neurological: Yes: Lethargy Labs: CBC, BMP 01/11/20 10:00 INR, PTT INR 1.54 (0.83-1.09) H 01/11/20 10:00 Problem List - Problems (1) NOVA (acute kidney injury) Code(s): N17.9 - ACUTE KIDNEY FAILURE, UNSPECIFIED (2) DM2 (diabetes mellitus, type 2) Code(s): E11.9 - TYPE 2 DIABETES MELLITUS WITHOUT COMPLICATIONS Qualifiers: Diabetes mellitus intermediate teacher insulin use: with chcf use Diabetes mellitus complication detail: with other circulatory complications (3) Hyperkalemia Code(s): E87.5 - HYPERKALEMIA (4) Metabolic acidosis Code(s): E87.2 - ACIDOSIS Assessment/Plan Current Medications Generic Name Dose Route Start Last Admin Trade Name Freq PRN Reason Stop Dose Admin Apixaban 5 mg 01/10/20 22:00 01/11/20 04:45 Eliquis - PO Not Given BID [facility] Chlorhexidine Gluconate 1 applic 01/10/20 22:00 01/10/20 23:00 Hibiclens For Decolonization - TP 1 applic HS [facility] Administration Fludrocortisone Acetate 0.2 mg 01/11/20 10:00 01/11/20 10:59 Florinef - PO 0.2 mg DAILY [facility] Administration Hydrocortisone Sodium Succinate 50 mg 01/11/20 04:15 01/11/20 10:58 Solu-Cortef - IVPB 50 mg Q6H-IV [facility] Administration Meropenem 1 gm/ Sodium 100 mls @ 200 mls/hr 01/11/20 10:00 01/11/20 10:59 Chloride IVPB 200 mls/hr BID [facility] Administration Midazolam HCl 100 mg in 100 mls @ 1 mls/hr 01/10/20 22:45 01/11/20 10:00 Midazolam 100mg/100ml-0.9%Nacl IVPB 10 mg/hr TITR [facility] 10 mls/hr Administration Protocol 1 MG/HR Meropenem 1 gm/ Sodium 100 mls @ 200 mls/hr 01/11/20 00:01 01/11/20 04:49 Chloride IVPB 01/11/20 12:30 200 mls/hr Q12H [facility] Administration Norepinephrine Bitartrate 8,000 mcg in 500 mls @ 18.75 mls/hr 01/11/20 03:15 01/11/20 04:49 Levophed Bag IVPB 30 mcg/min TITR [facility] 112.5 mls/hr Administration Protocol 5 MCG/MIN Phenylephrine HCl 50,000 mcg in 500 mls @ 54 mls/hr 01/11/20 04:45 01/11/20 05:00 Sage-Synephrine CVP 90 mcg/min ASDIR [facility] 54 mls/hr Administration Protocol 90 MCG/MIN Fentanyl 500 mcg in 100 mls @ 20 mls/hr 01/11/20 06:16 Sublimaze Ivpb IVPB TITR [facility] Protocol Sodium Chloride 250 mls @ 3,000 mls/hr 01/11/20 08:07 Normal Saline - IV 01/12/20 08:07 PRN PRN Hypotension during Dialysis Propofol 1,000,000 mcg in 100 mls @ 7.92 mls/hr 01/11/20 08:30 01/11/20 10:58 Diprivan - IVPB 50 mcg/kg/min TITR [facility] 39.6 mls/hr Administration Protocol 10 MCG/KG/MIN Sodium Chloride 1,000 mls @ 75 mls/hr 01/11/20 08:26 01/11/20 09:00 Normal Saline - IV 75 mls/hr ASDIR [facility] Administration Vasopressin 40 units/ Sodium 100 mls @ 5 mls/hr 01/11/20 10:15 01/11/20 08:00 Chloride IVPB 2 units/hr ASDIR [facility] 5 mls/hr Administration Protocol 2 UNITS/HR Insulin Aspart 1 vial 01/10/20 22:00 01/11/20 04:47 Novolog Vial Sliding Scale - SQ Not Given ACHS [facility] Protocol Mupirocin 1 applic 01/10/20 22:00 01/11/20 11:00 Bactroban Ointment (For Decolonization) - NS 01/15/20 21:59 1 applic BID [facility] Administration Sodium Zirconium Cyclosilicate 10 gm 01/11/20 10:00 01/11/20 10:58 Lokelma PO 10 gm DAILY [facility] Administration Impression 1. NOVA 2. hyperkalemia 3. obesity 4. DM 5. a-fib 6. HTN 7. chronic lower extremity ulcers 8. gastritis 9. sepsis 10. hyperglycemia 11. metabolic acidosis 12. peripheral vascular disease 13. acute resp failure 14. shock Plan - will arrange for HD again today at bedside - cont abx - monitor urine output - will treat potassium with HD - wound care - monitor bicarb - bp is improved - maintain map 65 - will not uf fluid on hd - follow cultures
[2020-01-11 11:48] LABS: ALBUMIN 2.4 g/dl (3.4-5.0); BILIRUBIN,TOTAL 1.2 mg/dL (0.2-1); CALCIUM 7.7 mg/dL (8.5-10.1); CREATININE 3.1 mg/dL (0.55-1.3); MAGNESIUM 1.9 mg/dL (1.8-2.4); PHOSPHOROUS 5.2 mg/dL (2.5-4.9); POTASSIUM 5.5 mmol/L (3.5-5.1); TOT PROT 6.7 g/dl (6.4-8.2)
--- NOTE | 2020-01-11 11:55 | PN ---
Physical Exam: SUBJECTIVE: Patient seen and examined at bedside. pt is intubated and sedated OBJECTIVE: Vital Signs Period Temp Pulse Resp BP Sys/Callahan Pulse Ox Last 24 Hr 97.2 F-98.6 F 83-148 12-30 57-186/23-168 88-99 GENERAL: The patient is intubated and sedated HEAD: Normal with no signs of trauma. LUNGS: vent sounds equal b/l, scattered wheezes, no accessory muscle use. HEART: Regular rate and rhythm, S1, S2 + systolic murmur ABDOMEN: Soft, nondistended, normoactive bowel sounds, no guarding EXTREMITIES: b/l LE wounds, open wounds throughout both legs , w/ drainage Laboratory Last Values WBC 39.2 K/mm3 (4.0-10.0) H* 01/11/20 10:00 RBC 3.75 M/mm3 (3.60-5.2) 01/11/20 10:00 Hgb 10.6 GM/dL (10.7-15.3) L 01/11/20 10:00 Hct 33.3 % (32.4-45.2) 01/11/20 10:00 MCV 88.8 fl (80-96) 01/11/20 10:00 MCH 28.4 pg (25.7-33.7) 01/11/20 10:00 MCHC 32.0 g/dl (32.0-36.0) 01/11/20 10:00 RDW 15.9 % (11.6-15.6) H 01/11/20 10:00 Plt Count 349 K/MM3 (134-434) D 01/11/20 10:00 MPV 10.0 fl (7.5-11.1) 01/11/20 10:00 Absolute Neuts (auto) 38.1 K/mm3 (1.5-8.0) H 01/11/20 10:00 Total Counted 100 01/11/20 02:00 Neutrophils % 97.0 % (42.8-82.8) H 01/11/20 10:00 Neutrophils % (Manual) 88.0 % (42.8-82.8) H 01/11/20 02:00 Band Neutrophils % 4.0 % (0-10) 01/11/20 02:00 Lymphocytes % 0.9 % (8-40) L 01/11/20 10:00 Lymphocytes % (Manual) 5.0 % (8-40) L D 01/11/20 02:00 Monocytes % 2.0 % (3.8-10.2) L 01/11/20 10:00 Monocytes % (Manual) 2 % (3.8-10.2) L 01/11/20 02:00 Eosinophils % 0.0 % (0-4.5) D 01/11/20 10:00 Eosinophils % (Manual) 1.0 % (0-4.5) D 01/11/20 02:00 Basophils % 0.1 % (0-2.0) 01/11/20 10:00 Basophils % (Manual) 0.0 % (0-2.0) 01/10/20 11:10 Myelocytes % (Man) 0 % (0-2) D 01/10/20 11:10 Promyelocytes % (Man) 0 % (0-2) 01/10/20 11:10 Blast Cells % (Manual) 0 % (0-0) 01/10/20 11:10 Nucleated RBC % 0 % (0-0) 01/11/20 10:00 Metamyelocytes 0 % (0-2) 01/10/20 11:10 Hypochromia 0 01/10/20 11:10 Platelet Estimate Adequate 01/11/20 02:00 Platelet Comment No clotting detected 01/11/20 02:00 Platelet Comment No clumping noted 01/11/20 02:00 Polychromasia 0 01/10/20 11:10 Poikilocytosis 0 01/10/20 11:10 Anisocytosis 0 01/10/20 11:10 Microcytosis 0 01/10/20 11:10 Macrocytosis 1+ 01/10/20 11:10 PT with INR 18.30 SEC (9.7-13.0) H 01/11/20 10:00 INR 1.54 (0.83-1.09) H 01/11/20 10:00 PTT (Actin FS) 32.4 SECONDS (25.2-36.5) 01/11/20 10:00 Anticoagulation Therapy No Result Required. 01/10/20 22:12 Puncture Site Right radial 01/10/20 22:12 Patient Temperature No Result Required. 01/10/20 22:12 ABG pH 7.257 (7.350-7.450) L 01/10/20 22:12 ABG pCO2 30.60 mmHg (35-45) L 01/10/20 22:12 ABG pO2 121.3 mmHg (80-100) H 01/10/20 22:12 ABG HCO3 13.3 mmol/L (22-27) L 01/10/20 22:12 ABG O2 Sat (Measured) 97.9 mmHg (95-98) 01/10/20 22:12 ABG O2 Content No Result Required. 01/10/20 22:12 ABG Base Excess -12.5 mmol/L (-2-2) L 01/10/20 22:12 Kwesi Test No Result Required. 01/10/20 22:12 Patient On Oxygen Yes 01/10/20 22:12 O2 Delivery Device Vent 01/10/20 22:12 Oxygen Flow Rate 50% 01/10/20 22:12 Vent Mode A/c 01/10/20 22:12 Vent Rate 12 01/10/20 22:12 Mechanical Rate No Result Required. 01/10/20 22:12 PEEP 5.0 cmH2O 01/10/20 22:12 Pressure Support Vent 500 01/10/20 22:12 Sodium 136 mmol/L (136-145) 01/11/20 10:00 Potassium 5.5 mmol/L (3.5-5.1) H 01/11/20 10:00 Chloride 103 mmol/L (98-107) 01/11/20 10:00 Carbon Dioxide 21 mmol/L (21-32) 01/11/20 10:00 Anion Gap 12 MMOL/L (8-16) 01/11/20 10:00 BUN 88.0 mg/dL (7-18) H 01/11/20 02:00 Creatinine 3.1 mg/dL (0.55-1.3) H 01/11/20 10:00 Est GFR (CKD-EPI)AfAm 18.57 01/11/20 10:00 Est GFR (CKD-EPI)NonAf 16.02 01/11/20 10:00 POC Glucometer 171 UNITS (80-120) 01/10/20 22:51 Random Glucose 354 mg/dL (74-106) H 01/11/20 10:00 Lactic Acid 0.6 mmol/L (0.4-2.0) 01/10/20 11:18 Calcium 7.7 mg/dL (8.5-10.1) L 01/11/20 10:00 Phosphorus 5.2 mg/dL (2.5-4.9) H 01/11/20 10:00 Magnesium 1.9 mg/dL (1.8-2.4) 01/11/20 10:00 Total Bilirubin 1.2 mg/dL (0.2-1) H 01/11/20 10:00 AST 73 U/L (15-37) H 01/11/20 10:00 ALT 52 U/L (13-61) 01/11/20 10:00 Alkaline Phosphatase 170 U/L (45-117) H 01/11/20 02:00 Creatine Kinase 53 U/L (26-192) 01/11/20 02:00 Troponin I < 0.02 ng/ml (0.00-0.05) 01/10/20 11:10 Total Protein 6.7 g/dl (6.4-8.2) 01/11/20 10:00 Albumin 2.4 g/dl (3.4-5.0) L 01/11/20 10:00 Urine Color Dk yellow 01/10/20 16:00 Urine Appearance Turbid 01/10/20 16:00 Urine pH 5.0 (5.0-8.0) 01/10/20 16:00 Ur Specific Covel 1.027 (1.010-1.035) 01/10/20 16:00 Urine Protein 1+ (NEGATIVE) H 01/10/20 16:00 Urine Glucose (UA) Trace (NEGATIVE) 01/10/20 16:00 Urine Ketones Trace (NEGATIVE) H 01/10/20 16:00 Urine Blood Negative (NEGATIVE) 01/10/20 16:00 Urine Nitrite Negative (NEGATIVE) 01/10/20 16:00 Urine Bilirubin Negative (NEGATIVE) 01/10/20 16:00 Urine Urobilinogen 1.0 mg/dL (0.2-1.0) 01/10/20 16:00 Ur Leukocyte Esterase Negative (NEGATIVE) 01/10/20 16:00 Urine WBC (Auto) 76.2 /uL (0-25.8) 01/10/20 16:00 Urine RBC (Auto) 27 /uL (0-23.9) 01/10/20 16:00 Urine Casts (Auto) 57 /uL (0-3.1) 01/10/20 16:00 U Pathogenic Cast Auto Negative /lpf (NEGATIVE) 01/10/20 16:00 U Epithel Cells (Auto) >36 /uL (0-25.1) 01/10/20 16:00 Urine Bacteria (Auto) 259.1 /uL (0-1359) 01/10/20 16:00 Random Vancomycin 10.4 ug/ml (5-26) 01/11/20 10:00 Active Medications Generic Name Dose Route Start Last Admin Trade Name Freq PRN Reason Stop Dose Admin Apixaban 5 mg 01/10/20 22:00 01/11/20 04:45 Eliquis - PO Not Given BID [facility] Chlorhexidine Gluconate 1 applic 01/10/20 22:00 01/10/20 23:00 Hibiclens For Decolonization - TP 1 applic HS [facility] Administration Fludrocortisone Acetate 0.2 mg 01/11/20 10:00 01/11/20 10:59 Florinef - PO 0.2 mg DAILY [facility] Administration Hydrocortisone Sodium Succinate 50 mg 01/11/20 04:15 01/11/20 10:58 Solu-Cortef - IVPB 50 mg Q6H-IV [facility] Administration Meropenem 1 gm/ Sodium 100 mls @ 200 mls/hr 01/11/20 10:00 01/11/20 10:59 Chloride IVPB 200 mls/hr BID [facility] Administration Midazolam HCl 100 mg in 100 mls @ 1 mls/hr 01/10/20 22:45 01/11/20 10:00 Midazolam 100mg/100ml-0.9%Nacl IVPB 10 mg/hr TITR [facility] 10 mls/hr Administration Protocol 1 MG/HR Meropenem 1 gm/ Sodium 100 mls @ 200 mls/hr 01/11/20 00:01 01/11/20 04:49 Chloride IVPB 01/11/20 12:30 200 mls/hr Q12H [facility] Administration Norepinephrine Bitartrate 8,000 mcg in 500 mls @ 18.75 mls/hr 01/11/20 03:15 01/11/20 04:49 Levophed Bag IVPB 30 mcg/min TITR [facility] 112.5 mls/hr Administration Protocol 5 MCG/MIN Phenylephrine HCl 50,000 mcg in 500 mls @ 54 mls/hr 01/11/20 04:45 01/11/20 05:00 Sage-Synephrine CVP 90 mcg/min ASDIR [facility] 54 mls/hr Administration Protocol 90 MCG/MIN Fentanyl 500 mcg in 100 mls @ 20 mls/hr 01/11/20 06:16 Sublimaze Ivpb IVPB TITR [facility] Protocol Sodium Chloride 250 mls @ 3,000 mls/hr 01/11/20 08:07 Normal Saline - IV 01/12/20 08:07 PRN PRN Hypotension during Dialysis Propofol 1,000,000 mcg in 100 mls @ 7.92 mls/hr 01/11/20 08:30 01/11/20 10:58 Diprivan - IVPB 50 mcg/kg/min TITR [facility] 39.6 mls/hr Administration Protocol 10 MCG/KG/MIN Sodium Chloride 1,000 mls @ 75 mls/hr 01/11/20 08:26 01/11/20 09:00 Normal Saline - IV 75 mls/hr ASDIR [facility] Administration Vasopressin 40 units/ Sodium 100 mls @ 5 mls/hr 01/11/20 10:15 01/11/20 08:00 Chloride IVPB 2 units/hr ASDIR [facility] 5 mls/hr Administration Protocol 2 UNITS/HR Insulin Aspart 1 vial 01/10/20 22:00 01/11/20 04:47 Novolog Vial Sliding Scale - SQ Not Given ACHS [facility] Protocol Mupirocin 1 applic 01/10/20 22:00 01/11/20 11:00 Bactroban Ointment (For Decolonization) - NS 01/15/20 21:59 1 applic BID [facility] Administration Sodium Zirconium Cyclosilicate 10 gm 01/11/20 10:00 01/11/20 10:58 Lokelma PO 10 gm DAILY [facility] Administration ASSESSMENT/PLAN: 54 yo F w/ PMH CKD , afib (Eliquis), DM, HTN, chronic LE ulcers . admitted for acute toxic metabolic encephalopathy in icu for septic shock requiring pressor support. Neuro intubated and sedated on propofol pending CT head , as history of fall ( and on eliquis) not clear Cardio Afib hypotensive unresponsive to fluid resuscitation s/p 3L LR HTN - c/w levophed, phenylephrine, vasopressin support to maintain MAP >65 -resume eliquis [address] head neg for bleed -hold home HTN meds due to septic shock Pulmonary -intubated - monitor and maintain Spo2>90% -rpt ABG reviewed, CXR reviewed A/C: GI -no acute issues Endo DM -hold home PO meds -c/w ISS + BGM ACHS ID septic shock likely 2/2 cellulitis - c/w Meropenem , vanc x 1 given - f/u cultures -Vascular surgeon consulted for LE ulcers with pending recommendations -ID , Dr. Jaylon keith appreciated Renal Renal failure CKD -Nephro consulted. s/p emergent dialysis yesterday. will get dialysis again today -c/w Bicarb drip -s/p hyperkalemia cocktail -Monitor I/O's FEN - NS @ 75 - monitor and replete electrolytes - NPO LTD -faith almodovar 01/09 - LISA 01/10 Ppx -DVT: SCDs Dispo: continue ICU monitoring. ATTENDING PHYSICIAN STATEMENT I saw and evaluated the patient. I reviewed the resident's note and discussed the case with the resident. I agree with the resident's findings and plan as documented. SUBJECTIVE: OBJECTIVE: ASSESSMENT AND PLAN:
[2020-01-11 12:04] LABS: BLOOD UREA NITROGEN 61.9 mg/dL (7-18)
[2020-01-11 12:26] LABS: ANISOCYTOSIS 0; MACROCYTOSIS 0; PLATELET ESTIMATE NORMAL
--- NOTE | 2020-01-11 13:18 | PN ---
Teaching Attending Note Name of Resident: Sophie Mclaughlin ATTENDING PHYSICIAN STATEMENT I saw and evaluated the patient. I reviewed the resident's note and discussed the case with the resident. I agree with the resident's findings and plan as documented. SUBJECTIVE: Patient seen and examined at bedside. Events from overnight noted. Now intubated and sedated NE 30mcq / Vasopressin 2 units /Phenylephrine 100mcq for hemodynamic support. Electrolytes improved after HD. OBJECTIVE: Intake & Output 01/08/20 01/09/20 01/10/20 01/11/20 23:59 23:59 23:59 23:59 Intake Total 1300 1364 Output Total 1433 1984 Balance -133 -620 Weight 291 lb 0.163 oz Last Vital Signs Temp Pulse Resp BP Pulse Ox 98.2 F 95 H 12 169/98 99 01/11/20 05:00 01/11/20 12:33 01/11/20 12:33 01/11/20 12:33 01/11/20 12:00 Active Medications Apixaban (Eliquis -) 5 mg PO BID [facility] Last Admin: 01/11/20 04:45 Dose: Not Given Documented by: Chlorhexidine Gluconate (Hibiclens For Decolonization -) 1 applic TP HS [facility] Last Admin: 01/10/20 23:00 Dose: 1 applic Documented by: Fludrocortisone Acetate (Florinef -) 0.2 mg PO DAILY [facility] Last Admin: 01/11/20 10:59 Dose: 0.2 mg Documented by: Hydrocortisone Sodium Succinate (Solu-Cortef -) 50 mg IVPB Q6H-IV [facility] Last Admin: 01/11/20 10:58 Dose: 50 mg Documented by: Meropenem 1 gm/ Sodium (Chloride) 100 mls @ 200 mls/hr IVPB BID [facility] Last Admin: 01/11/20 10:59 Dose: 200 mls/hr Documented by: Midazolam HCl (Midazolam 100mg/100ml-0.9%Nacl) 100 mg in 100 mls @ 1 mls/hr IVPB TITR [facility]; Protocol Last Admin: 01/11/20 10:00 Dose: 10 mg/hr, 10 mls/hr Documented by: Norepinephrine Bitartrate (Levophed Bag) 8,000 mcg in 500 mls @ 18.75 mls/hr IVPB TITR [facility]; Protocol Last Admin: 01/11/20 04:49 Dose: 30 mcg/min, 112.5 mls/hr Documented by: Phenylephrine HCl (Sage-Synephrine) 50,000 mcg in 500 mls @ 54 mls/hr CVP [facility]; Protocol Last Admin: 01/11/20 05:00 Dose: 90 mcg/min, 54 mls/hr Documented by: Fentanyl (Sublimaze Ivpb) 500 mcg in 100 mls @ 20 mls/hr IVPB TITR [facility]; Protocol Sodium Chloride (Normal Saline -) 250 mls @ 3,000 mls/hr IV PRN PRN PRN Reason: Hypotension during Dialysis Stop: 01/12/20 08:07 Propofol (Diprivan -) 1,000,000 mcg in 100 mls @ 7.92 mls/hr IVPB TITR [facility]; Protocol Last Admin: 01/11/20 10:58 Dose: 50 mcg/kg/min, 39.6 mls/hr Documented by: Sodium Chloride (Normal Saline -) 1,000 mls @ 75 mls/hr IV [facility]IR [facility] Last Admin: 01/11/20 09:00 Dose: 75 mls/hr Documented by: Vasopressin 40 units/ Sodium (Chloride) 100 mls @ 5 mls/hr IVPB [facility]; Protocol Last Admin: 01/11/20 08:00 Dose: 2 units/hr, 5 mls/hr Documented by: Insulin Aspart (Novolog Vial Sliding Scale -) 1 vial SQ ACHS [facility]; Protocol Last Admin: 01/11/20 04:47 Dose: Not Given Documented by: Mupirocin (Bactroban Ointment (For Decolonization) -) 1 applic NS BID [facility] Stop: 01/15/20 21:59 Last Admin: 01/11/20 11:00 Dose: 1 applic Documented by: Sodium Zirconium Cyclosilicate (Lokelma) 10 gm PO DAILY [facility] Last Admin: 01/11/20 10:58 Dose: 10 gm Documented by: GENERAL: Intubated and sedated HEAD: Normal with no signs of trauma. LUNGS: vented, diminished throughout, no wheezes HEART: Regular rate and rhythm, S1, S2 + systolic murmur ABDOMEN: Soft, obese, nondistended, normoactive bowel sounds, no guarding EXTREMITIES: b/l LE wounds, open wounds throughout both legs , w/ drainage Laboratory Last Values WBC 39.2 K/mm3 (4.0-10.0) H* 01/11/20 10:00 RBC 3.75 M/mm3 (3.60-5.2) 01/11/20 10:00 Hgb 10.6 GM/dL (10.7-15.3) L 01/11/20 10:00 Hct 33.3 % (32.4-45.2) 01/11/20 10:00 MCV 88.8 fl (80-96) 01/11/20 10:00 MCH 28.4 pg (25.7-33.7) 01/11/20 10:00 MCHC 32.0 g/dl (32.0-36.0) 01/11/20 10:00 RDW 15.9 % (11.6-15.6) H 01/11/20 10:00 Plt Count 349 K/MM3 (134-434) D 01/11/20 10:00 MPV 10.0 fl (7.5-11.1) 01/11/20 10:00 Absolute Neuts (auto) 38.1 K/mm3 (1.5-8.0) H 01/11/20 10:00 Total Counted 100 01/11/20 02:00 Neutrophils % 97.0 % (42.8-82.8) H 01/11/20 10:00 Neutrophils % (Manual) 88.0 % (42.8-82.8) H 01/11/20 02:00 Band Neutrophils % 4.0 % (0-10) 01/11/20 02:00 Lymphocytes % 0.9 % (8-40) L 01/11/20 10:00 Lymphocytes % (Manual) 5.0 % (8-40) L D 01/11/20 02:00 Monocytes % 2.0 % (3.8-10.2) L 01/11/20 10:00 Monocytes % (Manual) 2 % (3.8-10.2) L 01/11/20 02:00 Eosinophils % 0.0 % (0-4.5) D 01/11/20 10:00 Eosinophils % (Manual) 1.0 % (0-4.5) D 01/11/20 02:00 Basophils % 0.1 % (0-2.0) 01/11/20 10:00 Basophils % (Manual) 0.0 % (0-2.0) 01/10/20 11:10 Myelocytes % (Man) 0 % (0-2) D 01/10/20 11:10 Promyelocytes % (Man) 0 % (0-2) 01/10/20 11:10 Blast Cells % (Manual) 0 % (0-0) 01/10/20 11:10 Nucleated RBC % 0 % (0-0) 01/11/20 10:00 Metamyelocytes 0 % (0-2) 01/10/20 11:10 Hypochromia 0 01/10/20 11:10 Platelet Estimate Adequate 01/11/20 02:00 Platelet Comment No clotting detected 01/11/20 02:00 Platelet Comment No clumping noted 01/11/20 02:00 Polychromasia 0 01/10/20 11:10 Poikilocytosis 0 01/10/20 11:10 Anisocytosis 0 01/10/20 11:10 Microcytosis 0 01/10/20 11:10 Macrocytosis 1+ 01/10/20 11:10 PT with INR 18.30 SEC (9.7-13.0) H 01/11/20 10:00 INR 1.54 (0.83-1.09) H 01/11/20 10:00 PTT (Actin FS) 32.4 SECONDS (25.2-36.5) 01/11/20 10:00 Anticoagulation Therapy No Result Required. 01/10/20 22:12 Puncture Site Right radial 01/10/20 22:12 Patient Temperature No Result Required. 01/10/20 22:12 ABG pH 7.257 (7.350-7.450) L 01/10/20 22:12 ABG pCO2 30.60 mmHg (35-45) L 01/10/20 22:12 ABG pO2 121.3 mmHg (80-100) H 01/10/20 22:12 ABG HCO3 13.3 mmol/L (22-27) L 01/10/20 22:12 ABG O2 Sat (Measured) 97.9 mmHg (95-98) 01/10/20 22:12 ABG O2 Content No Result Required. 01/10/20 22:12 ABG Base Excess -12.5 mmol/L (-2-2) L 01/10/20 22:12 Kwesi Test No Result Required. 01/10/20 22:12 Patient On Oxygen Yes 01/10/20 22:12 O2 Delivery Device Vent 01/10/20 22:12 Oxygen Flow Rate 50% 01/10/20 22:12 Vent Mode A/c 01/10/20 22:12 Vent Rate 12 01/10/20 22:12 Mechanical Rate No Result Required. 01/10/20 22:12 PEEP 5.0 cmH2O 01/10/20 22:12 Pressure Support Vent 500 01/10/20 22:12 Sodium 136 mmol/L (136-145) 01/11/20 10:00 Potassium 5.5 mmol/L (3.5-5.1) H 01/11/20 10:00 Chloride 103 mmol/L (98-107) 01/11/20 10:00 Carbon Dioxide 21 mmol/L (21-32) 01/11/20 10:00 Anion Gap 12 MMOL/L (8-16) 01/11/20 10:00 BUN 88.0 mg/dL (7-18) H 01/11/20 02:00 Creatinine 3.1 mg/dL (0.55-1.3) H 01/11/20 10:00 Est GFR (CKD-EPI)AfAm 18.57 01/11/20 10:00 Est GFR (CKD-EPI)NonAf 16.02 01/11/20 10:00 POC Glucometer 171 UNITS (80-120) 01/10/20 22:51 Random Glucose 354 mg/dL (74-106) H 01/11/20 10:00 Lactic Acid 0.6 mmol/L (0.4-2.0) 01/10/20 11:18 Calcium 7.7 mg/dL (8.5-10.1) L 01/11/20 10:00 Phosphorus 5.2 mg/dL (2.5-4.9) H 01/11/20 10:00 Magnesium 1.9 mg/dL (1.8-2.4) 01/11/20 10:00 Total Bilirubin 1.2 mg/dL (0.2-1) H 01/11/20 10:00 AST 73 U/L (15-37) H 01/11/20 10:00 ALT 52 U/L (13-61) 01/11/20 10:00 Alkaline Phosphatase 170 U/L (45-117) H 01/11/20 02:00 Creatine Kinase 53 U/L (26-192) 01/11/20 02:00 Troponin I < 0.02 ng/ml (0.00-0.05) 01/10/20 11:10 Total Protein 6.7 g/dl (6.4-8.2) 01/11/20 10:00 Albumin 2.4 g/dl (3.4-5.0) L 01/11/20 10:00 Urine Color Dk yellow 01/10/20 16:00 Urine Appearance Turbid 01/10/20 16:00 Urine pH 5.0 (5.0-8.0) 01/10/20 16:00 Ur Specific [place] 1.027 (1.010-1.035) 01/10/20 16:00 Urine Protein 1+ (NEGATIVE) H 01/10/20 16:00 Urine Glucose (UA) Trace (NEGATIVE) 01/10/20 16:00 Urine Ketones Trace (NEGATIVE) H 01/10/20 16:00 Urine Blood Negative (NEGATIVE) 01/10/20 16:00 Urine Nitrite Negative (NEGATIVE) 01/10/20 16:00 Urine Bilirubin Negative (NEGATIVE) 01/10/20 16:00 Urine Urobilinogen 1.0 mg/dL (0.2-1.0) 01/10/20 16:00 Ur Leukocyte Esterase Negative (NEGATIVE) 01/10/20 16:00 Urine WBC (Auto) 76.2 /uL (0-25.8) 01/10/20 16:00 Urine RBC (Auto) 27 /uL (0-23.9) 01/10/20 16:00 Urine Casts (Auto) 57 /uL (0-3.1) 01/10/20 16:00 U Pathogenic Cast Auto Negative /lpf (NEGATIVE) 01/10/20 16:00 U Epithel Cells (Auto) >36 /uL (0-25.1) 01/10/20 16:00 Urine Bacteria (Auto) 259.1 /uL (0-1359) 01/10/20 16:00 Random Vancomycin 10.4 ug/ml (5-26) 01/11/20 10:00 Active Medications Generic Name Dose Route Start Last Admin Trade Name Freq PRN Reason Stop Dose Admin Apixaban 5 mg 01/10/20 22:00 01/11/20 04:45 Eliquis - PO Not Given BID [facility] Chlorhexidine Gluconate 1 applic 01/10/20 22:00 01/10/20 23:00 Hibiclens For Decolonization - TP 1 applic HS [facility] Administration Fludrocortisone Acetate 0.2 mg 01/11/20 10:00 01/11/20 10:59 Florinef - PO 0.2 mg DAILY [facility] Administration Hydrocortisone Sodium Succinate 50 mg 01/11/20 04:15 01/11/20 10:58 Solu-Cortef - IVPB 50 mg Q6H-IV [facility] Administration Meropenem 1 gm/ Sodium 100 mls @ 200 mls/hr 01/11/20 10:00 01/11/20 10:59 Chloride IVPB 200 mls/hr BID [facility] Administration Midazolam HCl 100 mg in 100 mls @ 1 mls/hr 01/10/20 22:45 01/11/20 10:00 Midazolam 100mg/100ml-0.9%Nacl IVPB 10 mg/hr TITR [facility] 10 mls/hr Administration Protocol 1 MG/HR Meropenem 1 gm/ Sodium 100 mls @ 200 mls/hr 01/11/20 00:01 01/11/20 04:49 Chloride IVPB 01/11/20 12:30 200 mls/hr Q12H [facility] Administration Norepinephrine Bitartrate 8,000 mcg in 500 mls @ 18.75 mls/hr 01/11/20 03:15 01/11/20 04:49 Levophed Bag IVPB 30 mcg/min TITR [facility] 112.5 mls/hr Administration Protocol 5 MCG/MIN Phenylephrine HCl 50,000 mcg in 500 mls @ 54 mls/hr 01/11/20 04:45 01/11/20 05:00 Sage-Synephrine CVP 90 mcg/min ASDIR [facility] 54 mls/hr Administration Protocol 90 MCG/MIN Fentanyl 500 mcg in 100 mls @ 20 mls/hr 01/11/20 06:16 Sublimaze Ivpb IVPB TITR [facility] Protocol Sodium Chloride 250 mls @ 3,000 mls/hr 01/11/20 08:07 Normal Saline - IV 01/12/20 08:07 PRN PRN Hypotension during Dialysis Propofol 1,000,000 mcg in 100 mls @ 7.92 mls/hr 01/11/20 08:30 01/11/20 10:58 Diprivan - IVPB 50 mcg/kg/min TITR [facility] 39.6 mls/hr Administration Protocol 10 MCG/KG/MIN Sodium Chloride 1,000 mls @ 75 mls/hr 01/11/20 08:26 01/11/20 09:00 Normal Saline - IV 75 mls/hr [facility] Administration Vasopressin 40 units/ Sodium 100 mls @ 5 mls/hr 01/11/20 10:15 01/11/20 08:00 Chloride IVPB 2 units/hr [facility] 5 mls/hr Administration Protocol 2 UNITS/HR Insulin Aspart 1 vial 01/10/20 22:00 01/11/20 04:47 Novolog Vial Sliding Scale - SQ Not Given ACHS [facility] Protocol Mupirocin 1 applic 01/10/20 22:00 01/11/20 11:00 Bactroban Ointment (For Decolonization) - NS 01/15/20 21:59 1 applic BID [facility] Administration Sodium Zirconium Cyclosilicate 10 gm 01/11/20 10:00 01/11/20 10:58 Lokelma PO 10 gm DAILY [facility] Administration ASSESSMENT/PLAN: Acute Respiratory Failure Septic Shock likely due to chronic LE wounds ARF CKD AFib on Eliquis DM HTN Chronic LE ulcers Likely OSAS / OHS Morbid Obesity AC Mode of vent Pressors to maintain MAP > 65 Strict I & O ABX per ID Follow cultures Continue AC Glycemic control GI prophylaxis Requires ICU monitoring Dr Andre Critical care time spent in reviewing chart, evaluating patient and formulating plan - 36 minutes.
[2020-01-11] MEDS ORDERED: INSULIN (NOVOLOG) ASPART 100 UNITS/ML 10ML VIAL ONE (13:39)
--- NOTE | 2020-01-11 14:14 | CONSULT ---
- Consultation REQUESTING PROVIDER: CONSULT REQUEST: We have been asked to surgically evaluate this patient for venous stasis ulcers. PCP:Salvador Andre HISTORY OF PRESENT ILLNESS: 54 y/o F w/ PMHx non-compliance, Morbid obesity, B/L LE chronic Venous stasis ulcerations, CKD not on permanent HD, Chronic Afib on AC (Eliquis), HTN, poorly controlled T2DM, Dyslipedemia, Bipolar disorder, admitted after fall, pt found to be in severe renal failure, now intubate d/sedated after HD due to concern for airway compromise. Vascular consulted for wound care. Patient with multiple similar admissions in the past. Seen by vascular in the past (wound care reccs given). PMHx: see above PSHx: unknown Home Medications Medication Instructions Recorded Acetaminophen [Tylenol .Regular 650 mg PO Q6H PRN tablet 11/05/19 Strength -] Albuterol Sulfate Inhaler - 2 puff IH Q4H PRN #1 inhaler 11/05/19 [Ventolin HFA Inhaler -] Apixaban [Eliquis -] 5 mg PO BID #60 tablet 11/05/19 Budesonide/Formeterol Fumarate 2 puff IH BID #1 inhaler 11/05/19 [SYMBICORT 80/4.5mcg -] Doxycycline Hyclate [Vibramycin -] 100 mg PO BID@1000,1800 #14 capsule 11/05/19 Ferrous Sulfate [Iron] 325 mg PO BID #60 tablet 11/05/19 Folic Acid 1 mg PO DAILY #30 tablet 11/05/19 Furosemide [Lasix -] 20 mg PO DAILY #30 tablet 11/05/19 Gabapentin [Neurontin -] 600 mg PO TID #180 capsule 11/05/19 Insulin Glargine,Hum.rec.anlog 10 unit SQ BID #1 insuln.pen 11/05/19 [[employer] Solostar] Lancets [Lancets Thin] 1 each ACHS #120 each 11/05/19 Magnesium Oxide [Mag-Ox -] 400 mg PO BID #60 tablet 11/05/19 Nystatin Cream [Mycostatin Cream -] 1 applic TP BID 30 Days #1 applic 11/05/19 Pantoprazole Sodium [Protonix -] 40 mg PO DAILY #60 tablet.ec 06/11/20 Polyethylene Glycol 3350 [Miralax 17 gm PO DAILY #1 bottle 11/05/19 119 gm Btl -] oxyCODONE HCL [Roxicodone -] 5 mg PO Q6H PRN #120 tablet MDD 4 11/05/19 Insulin Detemir [Levemir Flextouch] 10 unit SQ BID #5 insuln.pen 11/06/19 traMADol HCL [Ultram -] 50 mg PO Q8H 7 Days #21 tablet MDD 11/06/19 3 Allergies Allergy/AdvReac Type Severity Reaction Status Date / Time nut - unspecified Allergy Verified 01/10/20 10:59 Penicillins Allergy Verified 01/10/20 10:59 walnut Allergy Verified 01/10/20 10:59 caviar Allergy Uncoded 01/10/20 10:59 REVIEW OF SYSTEMS: unable to obtain-intubated, sedated PHYSICAL EXAM: GENERAL: intubated, sedated. HEAD: Normal with no signs of trauma. LOWER EXTREMITIES: b/l les with multiple superficial ulcerations by islands of skin over b/l les, circumferential over entirety of b/l calfs. LLE wounds clean based, rle wounds with moderate fibrinous/li exudate, no foul odo r, moderate serous exudate, trace erythema. No crepitus. No palpable fluid collection. Vasc: +biphasic dp/pt b/l les Vital Signs Temperature 98.2 F 01/11/20 05:00 Pulse Rate 95 H 01/11/20 12:33 Respiratory Rate 12 01/11/20 12:33 Blood Pressure 169/98 01/11/20 12:33 O2 Sat by Pulse Oximetry (%) 99 01/11/20 12:00 Lab Results WBC 39.2 K/mm3 (4.0-10.0) H* 01/11/20 10:00 RBC 3.75 M/mm3 (3.60-5.2) 01/11/20 10:00 Hgb 10.6 GM/dL (10.7-15.3) L 01/11/20 10:00 Hct 33.3 % (32.4-45.2) 01/11/20 10:00 MCV 88.8 fl (80-96) 01/11/20 10:00 MCHC 32.0 g/dl (32.0-36.0) 01/11/20 10:00 RDW 15.9 % (11.6-15.6) H 01/11/20 10:00 Plt Count 349 K/MM3 (134-434) D 01/11/20 10:00 INR 1.54 (0.83-1.09) H 01/11/20 10:00 Sodium 136 mmol/L (136-145) 01/11/20 10:00 Potassium 5.5 mmol/L (3.5-5.1) H 01/11/20 10:00 Chloride 103 mmol/L (98-107) 01/11/20 10:00 Carbon Dioxide 21 mmol/L (21-32) 01/11/20 10:00 Anion Gap 12 MMOL/L (8-16) 01/11/20 10:00 BUN 61.9 mg/dL (7-18) H 01/11/20 10:00 Creatinine 3.1 mg/dL (0.55-1.3) H 01/11/20 10:00 Random Glucose 354 mg/dL (74-106) H 01/11/20 10:00 Calcium 7.7 mg/dL (8.5-10.1) L 01/11/20 10:00 A/P: 54 y/o F w/ PMHx non-compliance, Morbid obesity, B/L LE chronic Venous stasis ulcerations, CKD not on permanent HD, Chronic Afib on AC (Eliquis), HTN, poorly controlled T2DM, Dyslipedemia, Bipolar disorder, admitted after fall, pt found to be in severe renal failure, now intubated/sedated after HD due to concern for airway compromise. Vascular consulted for wound care. B/L Les unkept with worsening venous stasis ulcers on RLE -Recommend santyl to rle wounds, xeroform to lle wounds, cover with 4x4s/kerlix and change daily -Offloading to b/l les while at rest -Abx per ID -glucose control -Venous duplex for r/o dvt (pt has h/o in the past) d/w attending Dr Calderon
--- NOTE | 2020-01-11 15:56 | EKG ---
Test Reason : Blood Pressure : / mmHG Vent. Rate : 103 BPM Atrial Rate : 110 BPM P-R Int : 000 ms QRS Dur : 076 ms QT Int : 328 ms P-R-T Axes : 000 009 018 degrees QTc Int : 429 ms ATRIAL FIBRILLATION WITH RAPID VENTRICULAR RESPONSE LOW VOLTAGE QRS POSSIBLE INFERIOR INFARCT (CITED ON OR BEFORE 10-JAN-2020) ABNORMAL ECG WHEN COMPARED WITH ECG OF 10-JAN-2020 21:56, Confirmed by SATISH ROMERO MD ([id number]) on 01/11/2020 3:56:23 PM Referred By: Confirmed By:SATISH ROMERO MD
--- NOTE | 2020-01-11 15:59 | EKG ---
Test Reason : Blood Pressure : / mmHG Vent. Rate : 135 BPM Atrial Rate : 127 BPM P-R Int : 128 ms QRS Dur : 072 ms QT Int : 296 ms P-R-T Axes : 000 035 -17 degrees QTc Int : 444 ms ATRIAL FIBRILLATION WITH RVR LOW VOLTAGE QRS CANNOT RULE OUT INFERIOR INFARCT , AGE UNDETERMINED ABNORMAL ECG WHEN COMPARED WITH ECG OF 10-JAN-2020 10:49, PROBABLE RHYTHM CHANGE Confirmed by SATISH ROMERO MD ([id number]) on 01/11/2020 3:59:34 PM Referred By: Confirmed By:SATISH ROMERO MD
[2020-01-11] MEDS ORDERED: VANCOMYCIN 1 GRAM (PRE-DOCKED) 1,000 MG/250 ML BAG IVPB ONE (16:25)
[2020-01-11] MEDS: FENTANYL IVPB 500 MCG/100 ML BAG IVPB SCH (19:30)
[2020-01-11] MEDS: COLLAGENASE CLOSTRIDIUM HIST. 30 GRAMS TUBE TP SCH (21:57)
[2020-01-11] MEDS: CHLORHEXIDINE GLUCONATE 4% CLEANSER FOR DECOLONIZATION TP SCH (21:58)
[2020-01-11] MEDS ORDERED: PT OWN MED DRAWER 7, Y5N ONE (22:00)
[2020-01-12] MEDS: HYDROCORTISONE SOD SUCCINATE 100 MG/2 ML VIAL IVPB SCH ×4 (03:50→20:23)
[2020-01-12] MEDS: INSULIN SLIDING SCALE (NOVOLOG) 1 VIAL SQ SCH ×5 (06:16→21:46)
[2020-01-12] MEDS: FENTANYL IVPB 500 MCG/100 ML BAG IVPB SCH (06:49)
[2020-01-12] MEDS: PHENYLEPHRINE NS PREMIX 50,000 MCG/500 ML BAG CVP SCH (06:50)
[2020-01-12] MEDS: NOREPINEPHRINE BITARTRATE 8,000 MCG/500 ML BAG IVPB SCH (06:50)
[2020-01-12 07:32] LABS: BASO % 0.1 % (0-2.0); EOS % 0.1 % (0-4.5); HEMATOCRIT 31.9 % (32.4-45.2); HEMOGLOBIN 10.3 GM/dL (10.7-15.3); LYMPH % 1.3 % (8-40); MCH 28.8 pg (25.7-33.7); MCHC 32.3 g/dl (32.0-36.0); MEAN CELL VOLUME 89.4 fl (80-96); MEAN PLT VOLUME 9.7 fl (7.5-11.1); MONO % 3.3 % (3.8-10.2); NEUT % 95.2 % (42.8-82.8); PLATELET COUNT 149 K/MM3 (134-434); RBC 3.57 M/mm3 (3.60-5.2); RDW 15.8 % (11.6-15.6); WHITE BLOOD COUNT 24.7 K/mm3 (4.0-10.0)
[2020-01-12 08:03] LABS: ALBUMIN 2.3 g/dl (3.4-5.0); BILIRUBIN,TOTAL 0.9 mg/dL (0.2-1); BLOOD UREA NITROGEN 70.4 mg/dL (7-18); CALCIUM 7.4 mg/dL (8.5-10.1); CREATININE 3.9 mg/dL (0.55-1.3); PHOSPHOROUS 8.8 mg/dL (2.5-4.9); TOT PROT 6.4 g/dl (6.4-8.2)
[2020-01-12] MEDS: VASOPRESSIN 40 UNITS in SODIUM CHLORIDE 98 ML IVPB SCH (08:12)
[2020-01-12 08:20] LABS: POTASSIUM 6.3 mmol/L (3.5-5.1)
--- NOTE | 2020-01-12 08:35 | PN ---
Progress Note, Physician - Current Medication List Current Medications: Active Medications Apixaban (Eliquis -) 5 mg PO BID [facility] Last Admin: 01/11/20 23:00 Dose: 5 mg Documented by: Chlorhexidine Gluconate (Hibiclens For Decolonization -) 1 applic TP HS [facility] Last Admin: 01/11/20 21:58 Dose: 1 applic Documented by: Collagenase (Santyl -) 1 applic TP DAILY [facility]; Protocol Last Admin: 01/11/20 21:57 Dose: 1 applic Documented by: Fludrocortisone Acetate (Florinef -) 0.2 mg PO DAILY [facility] Last Admin: 01/11/20 10:59 Dose: 0.2 mg Documented by: Hydrocortisone Sodium Succinate (Solu-Cortef -) 50 mg IVPB Q6H-IV [facility] Last Admin: 01/12/20 03:50 Dose: 50 mg Documented by: Meropenem 1 gm/ Sodium (Chloride) 100 mls @ 200 mls/hr IVPB BID [facility] Last Admin: 01/11/20 21:58 Dose: 200 mls/hr Documented by: Midazolam HCl (Midazolam 100mg/100ml-0.9%Nacl) 100 mg in 100 mls @ 1 mls/hr IVPB TITR [facility]; Protocol Last Admin: 01/11/20 21:58 Dose: 10 mg/hr, 10 mls/hr Documented by: Norepinephrine Bitartrate (Levophed Bag) 8,000 mcg in 500 mls @ 18.75 mls/hr IVPB TITR [facility]; Protocol Last Admin: 01/12/20 06:50 Dose: 25 mcg/min, 93.75 mls/hr Documented by: Phenylephrine HCl (Sage-Synephrine) 50,000 mcg in 500 mls @ 54 mls/hr CVP [facility]IR [facility]; Protocol Last Admin: 01/12/20 06:50 Dose: Not Given Documented by: Fentanyl (Sublimaze Ivpb) 500 mcg in 100 mls @ 20 mls/hr IVPB TITR [facility]; Protocol Last Admin: 01/12/20 06:49 Dose: 50 mcg/hr, 10 mls/hr Documented by: Sodium Chloride (Normal Saline -) 250 mls @ 3,000 mls/hr IV PRN PRN PRN Reason: Hypotension during Dialysis Stop: 01/12/20 08:07 Propofol (Diprivan -) 1,000,000 mcg in 100 mls @ 7.92 mls/hr IVPB TITR [facility]; Protocol Last Titration: 01/11/20 21:59 Dose: 50 mcg/kg/min, 39.6 mls/hr Documented by: Sodium Chloride (Normal Saline -) 1,000 mls @ 75 mls/hr IV ASDIR [facility] Last Admin: 01/11/20 09:00 Dose: 75 mls/hr Documented by: Vasopressin 40 units/ Sodium (Chloride) 100 mls @ 5 mls/hr IVPB [facility]IR [facility]; Protocol Last Titration: 01/11/20 15:00 Dose: 0 units/hr, 0 mls/hr Documented by: Insulin Aspart (Novolog Vial Sliding Scale -) 1 vial SQ ACHS [facility]; Protocol Last Admin: 01/12/20 06:16 Dose: 6 units Documented by: Mupirocin (Bactroban Ointment (For Decolonization) -) 1 applic NS BID [facility] Stop: 01/15/20 21:59 Last Admin: 01/11/20 21:57 Dose: 1 applic Documented by: Sodium Zirconium Cyclosilicate (Lokelma) 10 gm PO DAILY [facility] Last Admin: 01/11/20 10:58 Dose: 10 gm Documented by: - Objective Vital Signs: Vital Signs Temperature 98.7 F 01/12/20 06:00 Pulse Rate 79 01/12/20 06:00 Respiratory Rate 13 01/12/20 08:30 Blood Pressure 131/70 01/12/20 06:00 O2 Sat by Pulse Oximetry (%) 98 01/12/20 08:30 Cardiovascular: Yes: S1, S2 Respiratory: Yes: Mechanically Ventilated Gastrointestinal: Yes: Normal Bowel Sounds, Soft Neurological: Yes: Unresponsive Labs: CBC, BMP 01/12/20 05:00 01/12/20 05:00 INR, PTT INR 1.54 (0.83-1.09) H 01/11/20 10:00 Problem List - Problems (1) Septic shock Assessment/Plan: IV ABX ID CONSULT CULTURES Microbiology 01/10/20 11:10 Leg - Right Lower Gram Stain - Final 01/10/20 11:10 Leg - Right Lower Wound Culture - Preliminary Lactose Fermenting Neg Bacilli Proteus Species Streptococcus Species 01/10/20 11:10 Blood - Peripheral Venous Blood Culture - Preliminary NO GROWTH OBTAINED AFTER 24 HOURS, INCUBATION TO CONTINUE FOR 4 DAYS. 01/10/20 11:10 Blood - Peripheral Venous Blood Culture - Preliminary NO GROWTH OBTAINED AFTER 24 HOURS, INCUBATION TO CONTINUE FOR 4 DAYS. Code(s): A41.9 - SEPSIS, UNSPECIFIED ORGANISM; R65.21 - SEVERE SEPSIS WITH SEPTIC SHOCK (2) Respiratory failure Assessment/Plan: VENT ICU CARE PULM CONSULT Code(s): J96.90 - RESPIRATORY FAILURE, UNSP, UNSP W HYPOXIA OR HYPERCAPNIA (3) Diabetic calf ulcer Assessment/Plan: SURGICAL CONSULT IV ABX Code(s): E11.622 - TYPE 2 DIABETES MELLITUS WITH OTHER SKIN ULCER; L97.209 - NON-PRESSURE CHRONIC ULCER OF UNSP CALF WITH UNSP SEVERITY (4) Cellulitis Assessment/Plan: IV ABX WOUND CARE Code(s): L03.90 - CELLULITIS, UNSPECIFIED Qualifiers: Site of cellulitis: unspecified site Qualified Code(s): L03.90 - Cellulit is, unspecified (5) NOVA (acute kidney injury) Assessment/Plan: high potasium and low na repeat now then assess renal on case ivf--on ns Code(s): N17.9 - ACUTE KIDNEY FAILURE, UNSPECIFIED (6) Acute metabolic encephalopathy Assessment/Plan: ct noted with lesion--unable to do mri neuro consult Code(s): G93.41 - METABOLIC ENCEPHALOPATHY
[2020-01-12] MEDS ORDERED: SODIUM CHLORIDE 250 ML IV PRN (08:46)
[2020-01-12] MEDS ORDERED: INSULIN REGULAR HUMAN 100 UNITS/ML *VIAL IVPUSH ONE (08:53)
[2020-01-12] MEDS ORDERED: DEXTROSE 50%-WATER - 25 GM/50 ML VIAL IVPUSH ONE (08:53)
[2020-01-12] MEDS ORDERED: MEROPENEM 1 GM VIAL (RESTRICTED TO ID) IVPB ONE ×2 (09:28→21:00)
[2020-01-12] MEDS ORDERED: SODIUM CHLORIDE 100 ML IVPB ONE ×2 (09:29→21:00)
[2020-01-12] MEDS ORDERED: PT OWN MED DRAWER 7, Y5N ONE ×2 (09:31→15:00)
[2020-01-12] MEDS: PROPOFOL 1,000,000 MCG/100 ML VIAL IVPB SCH ×4 (09:43→23:55)
[2020-01-12] MEDS: SODIUM CHLORIDE 1,000 ML IV SCH (09:44)
[2020-01-12] MEDS: FLUDROCORTISONE ACETATE 0.1 MG TABLET (FP) PO SCH (09:46)
[2020-01-12] MEDS: SODIUM ZIRCONIUM CYCLOSILICATE (LOKELMA) 5 GM PACKET PO SCH (09:46)
[2020-01-12] MEDS: APIXABAN 5 MG TABLET PO SCH (09:46)
[2020-01-12] MEDS: MEROPENEM 1 GM in SODIUM CHLORIDE 100 ML IVPB SCH ×2 (09:47→21:02)
[2020-01-12] MEDS: MUPIROCIN 2% TOPICAL OINTMENT FOR DECOLONIZATION NS SCH ×2 (09:48→21:02)
[2020-01-12] MEDS: COLLAGENASE CLOSTRIDIUM HIST. 30 GRAMS TUBE TP SCH (09:48)
[2020-01-12] MEDS ORDERED: DEXTROSE 50%-WATER 25 GM/50 ML DISP.SYRIN ONE (09:54)
[2020-01-12] MEDS ORDERED: SODIUM ZIRCONIUM CYCLOSILICATE (LOKELMA) 5 GM PACKET PO SCH (10:00)
--- NOTE | 2020-01-12 12:09 | EKG ---
Test Reason : Blood Pressure : / mmHG Vent. Rate : 094 BPM Atrial Rate : 131 BPM P-R Int : 000 ms QRS Dur : 086 ms QT Int : 342 ms P-R-T Axes : 000 013 026 degrees QTc Int : 427 ms ATRIAL FIBRILLATION WITH PREMATURE VENTRICULAR OR ABERRANTLY CONDUCTED COMPLEXES LOW VOLTAGE QRS ABNORMAL ECG WHEN COMPARED WITH ECG OF 11-JAN-2020 15:06, NONSPECIFIC T WAVE ABNORMALITY, IMPROVED IN INFERIOR LEADS NONSPECIFIC T WAVE ABNORMALITY NO LONGER EVIDENT IN LATERAL LEADS Confirmed by Filiberto Oneil MD ([id number]) on 01/12/2020 12:08:51 PM Referred By: Evelio REYES Confirmed By:Filiberto Oneil MD
[2020-01-12 12:29] LABS: ANISOCYTOSIS 1+; MACROCYTOSIS 0; PLATELET ESTIMATE DECREASED
--- NOTE | 2020-01-12 14:06 | PN ---
Teaching Attending Note Name of Resident: Sophie Mclaughlin ATTENDING PHYSICIAN STATEMENT I saw and evaluated the patient. I reviewed the resident's note and discussed the case with the resident. I agree with the resident's findings and plan as documented. SUBJECTIVE: Patient seen and examined in the ICU. Remains intubated and sedated NE 25mcq / Vasopressin 2.4 units for hemodynamic support. S/P HD yesterday. OBJECTIVE: Intake & Output 01/09/20 01/10/20 01/11/20 01/12/20 23:59 23:59 23:59 23:59 Intake Total 1300 4592 2829 Output Total 1433 2084 75 Balance -133 2508 2754 Weight 291 lb 0.163 oz 291 lb Last Vital Signs Temp Pulse Resp BP Pulse Ox 98.7 F 89 13 108/73 97 01/12/20 06:00 01/12/20 11:50 01/12/20 11:55 01/12/20 11:50 01/12/20 11:55 Active Medications Apixaban (Eliquis -) 5 mg PO BID [facility] Last Admin: 01/12/20 09:46 Dose: 5 mg Documented by: Chlorhexidine Gluconate (Hibiclens For Decolonization -) 1 applic TP HS [facility] Last Admin: 01/11/20 21:58 Dose: 1 applic Documented by: Collagenase (Santyl -) 1 applic TP DAILY [facility]; Protocol Last Admin: 01/12/20 09:48 Dose: 1 applic Documented by: Fludrocortisone Acetate (Florinef -) 0.2 mg PO DAILY [facility] Last Admin: 01/12/20 09:46 Dose: 0.2 mg Documented by: Hydrocortisone Sodium Succinate (Solu-Cortef -) 50 mg IVPB Q6H-IV [facility] Last Admin: 01/12/20 09:45 Dose: 50 mg Documented by: Meropenem 1 gm/ Sodium (Chloride) 100 mls @ 200 mls/hr IVPB BID [facility] Last Admin: 01/12/20 09:47 Dose: 200 mls/hr Documented by: Midazolam HCl (Midazolam 100mg/100ml-0.9%Nacl) 100 mg in 100 mls @ 1 mls/hr IVPB TITR [facility]; Protocol Last Admin: 01/11/20 21:58 Dose: 10 mg/hr, 10 mls/hr Documented by: Norepinephrine Bitartrate (Levophed Bag) 8,000 mcg in 500 mls @ 18.75 mls/hr IVPB TITR [facility]; Protocol Last Admin: 01/12/20 06:50 Dose: 25 mcg/min, 93.75 mls/hr Documented by: Phenylephrine HCl (Sage-Synephrine) 50,000 mcg in 500 mls @ 54 mls/hr CVP [facility]; Protocol Last Admin: 01/12/20 06:50 Dose: Not Given Documented by: Fentanyl (Sublimaze Ivpb) 500 mcg in 100 mls @ 20 mls/hr IVPB TITR [facility]; Protocol Last Admin: 01/12/20 06:49 Dose: 50 mcg/hr, 10 mls/hr Documented by: Sodium Chloride (Normal Saline -) 250 mls @ 3,000 mls/hr IV PRN PRN PRN Reason: Hypotension during Dialysis Stop: 01/12/20 08:07 Propofol (Diprivan -) 1,000,000 mcg in 100 mls @ 7.92 mls/hr IVPB [facility]; Protocol Last Admin: 01/12/20 09:43 Dose: 50 mcg/kg/min, 39.6 mls/hr Documented by: Sodium Chloride (Normal Saline -) 1,000 mls @ 75 mls/hr IV [facility] Last Admin: 01/12/20 09:44 Dose: 75 mls/hr Documented by: Vasopressin 40 units/ Sodium (Chloride) 100 mls @ 5 mls/hr IVPB [facility]; Protocol Last Admin: 01/12/20 08:12 Dose: 2.4 units/hr, 6 mls/hr Documented by: Sodium Chloride (Normal Saline -) 250 mls @ 3,000 mls/hr IV PRN PRN PRN Reason: Hypotension during Dialysis Stop: 01/13/20 08:46 Insulin Aspart (Novolog Vial Sliding Scale -) 1 vial SQ ACHS [facility]; Protocol Last Admin: 01/12/20 12:06 Dose: 4 units Documented by: Mupirocin (Bactroban Ointment (For Decolonization) -) 1 applic NS BID [facility] Stop: 01/15/20 21:59 Last Admin: 01/12/20 09:48 Dose: 1 applic Documented by: Sodium Zirconium Cyclosilicate (Lokelma) 10 gm PO DAILY [facility] Last Admin: 01/12/20 09:46 Dose: 10 gm Documented by: Sodium Zirconium Cyclosilicate (Lokelma) 10 gm PO DAILY [facility] Last Admin: 01/12/20 10:28 Dose: Not Given Documented by: GENERAL: Intubated and sedated HEAD: Normal with no signs of trauma. LUNGS: vented, diminished throughout, no wheezes HEART: Regular rate and rhythm, S1, S2 + systolic murmur ABDOMEN: Soft, obese, nondistended, normoactive bowel sounds, no guarding EXTREMITIES: b/l LE wounds, open wounds throughout both legs , w/ drainage Laboratory Results - last 24 hr 01/10/20 01/11/20 01/11/20 16:00 16:21 22:07 WBC RBC Hgb Hct MCV MCH MCHC RDW Plt Count MPV Absolute Neuts (auto) Neutrophils % Neutrophils % (Manual) Band Neutrophils % Lymphocytes % Lymphocytes % (Manual) Monocytes % Monocytes % (Manual) Eosinophils % Eosinophils % (Manual) Basophils % Basophils % (Manual) Myelocytes % (Man) Promyelocytes % (Man) Blast Cells % (Manual) Nucleated RBC % Metamyelocytes Hypochromia Platelet Estimate Polychromasia Poikilocytosis Anisocytosis Microcytosis Macrocytosis Sodium Potassium Chloride Carbon Dioxide Anion Gap BUN Creatinine Est GFR (CKD-EPI)AfAm Est GFR (CKD-EPI)NonAf POC Glucometer 286 284 Random Glucose Calcium Phosphorus Magnesium Total Bilirubin AST ALT Alkaline Phosphatase Total Protein Albumin Random Vancomycin COVID-19 ([facility]) Not detected 01/12/20 01/12/20 01/12/20 05:00 05:00 05:00 WBC 24.7 H RBC 3.57 L Hgb 10.3 L Hct 31.9 L MCV 89.4 MCH 28.8 MCHC 32.3 RDW 15.8 H Plt Count 149 D MPV 9.7 Absolute Neuts (auto) 23.5 H Neutrophils % 95.2 H Neutrophils % (Manual) 93.4 H Band Neutrophils % 0.0 Lymphocytes % 1.3 L D Lymphocytes % (Manual) 2.2 L D Monocytes % 3.3 L Monocytes % (Manual) 3 L D Eosinophils % 0.1 D Eosinophils % (Manual) 1.1 D Basophils % 0.1 Basophils % (Manual) 0.0 Myelocytes % (Man) 0 Promyelocytes % (Man) 0 Blast Cells % (Manual) 0 Nucleated RBC % 0 Metamyelocytes 0 Hypochromia 0 Platelet Estimate Decreased Polychromasia 1+ Poikilocytosis 1+ Anisocytosis 1+ Microcytosis 1+ Macrocytosis 0 Sodium 128 L Potassium 6.3 H* Chloride 96 L Carbon Dioxide 20 L Anion Gap 13 BUN 70.4 H Creatinine 3.9 H Est GFR (CKD-EPI)AfAm 14.07 Est GFR (CKD-EPI)NonAf 12.14 POC Glucometer Random Glucose 290 H Calcium 7.4 L Phosphorus 8.8 H Magnesium 2.0 Total Bilirubin 0.9 AST 57 H ALT 51 Alkaline Phosphatase 182 H Total Protein 6.4 Albumin 2.3 L Random Vancomycin 21.3 COVID-19 ([facility]) 01/12/20 01/12/20 06:13 11:57 WBC RBC Hgb Hct MCV MCH MCHC RDW Plt Count MPV Absolute Neuts (auto) Neutrophils % Neutrophils % (Manual) Band Neutrophils % Lymphocytes % Lymphocytes % (Manual) Monocytes % Monocytes % (Manual) Eosinophils % Eosinophils % (Manual) Basophils % Basophils % (Manual) Myelocytes % (Man) Promyelocytes % (Man) Blast Cells % (Manual) Nucleated RBC % Metamyelocytes Hypochromia Platelet Estimate Polychromasia Poikilocytosis Anisocytosis Microcytosis Macrocytosis Sodium Potassium Chloride Carbon Dioxide Anion Gap BUN Creatinine Est GFR (CKD-EPI)AfAm Est GFR (CKD-EPI)NonAf POC Glucometer 278 221 Random Glucose Calcium Phosphorus Magnesium Total Bilirubin AST ALT Alkaline Phosphatase Total Protein Albumin Random Vancomycin COVID-19 ([facility]) ASSESSMENT/PLAN: Acute Respiratory Failure Septic Shock likely due to chronic LE wounds ARF CKD AFib on Eliquis DM HTN Chronic LE ulcers Likely OSAS / OHS Morbid Obesity AC Mode of vent Pressors to maintain MAP > 65 Strict I & O ABX per ID Follow cultures Continue AC Glycemic control GI prophylaxis Requires ICU monitoring Dr Andre Critical care time spent in reviewing chart, evaluating patient and formulating plan - 36 minutes.
--- NOTE | 2020-01-12 14:54 | PN ---
Progress Note (short form) - Note Progress Note: pressors being tapered on HD intubated and sedated Vital Signs Period Temp Pulse Resp BP Sys/Callahan Pulse Ox Last 24 Hr 98.7 F 79-111 11-17 83-137/47-80 96-100 cor-rrr lungs decreased bs at bases abd soft,nt ext wrapped CBC, BMP 01/12/20 05:00 01/12/20 05:00 Microbiology 01/10/20 11:10 Leg - Right Lower Gram Stain - Final 01/10/20 11:10 Leg - Right Lower Wound Culture - Preliminary Klebsiella Pneumoniae Proteus Mirabilis Enterococcus Avium Lactose Fermenting Neg Bacilli 01/10/20 11:10 Blood - Peripheral Venous Blood Culture - Preliminary NO GROWTH OBTAINED AFTER 48 HOURS, INCUBATION TO CONTINUE FOR 3 DAYS. 01/10/20 11:10 Blood - Peripheral Venous Blood Culture - Preliminary NO GROWTH OBTAINED AFTER 48 HOURS, INCUBATION TO C ONTINUE FOR 3 DAYS. 01/10/20 16:00 Urine - Urine - Catheterized Urine Culture - Final NO GROWTH OBTAINED a/p sepsis resp failure renal failure pen allergy on HD pressors being tapered continue meropenem given pen allergy Problem List - Problems (1) Septic shock Code(s): A41.9 - SEPSIS, UNSPECIFIED ORGANISM; R65.21 - SEVERE SEPSIS WITH SEPTIC SHOCK (2) ARF (acute renal failure) Code(s): N17.9 - ACUTE KIDNEY FAILURE, UNSPECIFIED Qualifiers: Acute renal failure type: unspecified Qualified Code(s): N17.9 - Acute kidney failure, unspecified (3) Respiratory failure Code(s): J96.90 - RESPIRATORY FAILURE, UNSP, UNSP W HYPOXIA OR HYPERCAPNIA (4) Penicillin allergy Code(s): Z88.0 - ALLERGY STATUS TO PENICILLIN
[2020-01-12] MEDS ORDERED: INSULIN (NOVOLOG) ASPART 100 UNITS/ML 10ML VIAL ONE (14:59)
--- NOTE | 2020-01-12 15:10 | PN ---
Progress Note, Physician History of Present Illness: Pt seen and examined at bedside. She remains in the ICU. She remains intubated. - Current Medication List Current Medications: Active Medications Apixaban (Eliquis -) 5 mg PO BID [facility] Last Admin: 01/12/20 09:46 Dose: 5 mg Documented by: Chlorhexidine Gluconate (Hibiclens For Decolonization -) 1 applic TP HS [facility] Last Admin: 01/11/20 21:58 Dose: 1 applic Documented by: Collagenase (Santyl -) 1 applic TP DAILY [facility]; Protocol Last Admin: 01/12/20 09:48 Dose: 1 applic Documented by: Fludrocortisone Acetate (Florinef -) 0.2 mg PO DAILY [facility] Last Admin: 01/12/20 09:46 Dose: 0.2 mg Documented by: Hydrocortisone Sodium Succinate (Solu-Cortef -) 50 mg IVPB Q6H-IV [facility] Last Admin: 01/12/20 09:45 Dose: 50 mg Documented by: Meropenem 1 gm/ Sodium (Chloride) 100 mls @ 200 mls/hr IVPB BID [facility] Last Admin: 01/12/20 09:47 Dose: 200 mls/hr Documented by: Midazolam HCl (Midazolam 100mg/100ml-0.9%Nacl) 100 mg in 100 mls @ 1 mls/hr IVPB TITR [facility]; Protocol Last Admin: 01/11/20 21:58 Dose: 10 mg/hr, 10 mls/hr Documented by: Norepinephrine Bitartrate (Levophed Bag) 8,000 mcg in 500 mls @ 18.75 mls/hr IVPB TITR [facility]; Protocol Last Admin: 01/12/20 06:50 Dose: 25 mcg/min, 93.75 mls/hr Documented by: Phenylephrine HCl (Sage-Synephrine) 50,000 mcg in 500 mls @ 54 mls/hr CVP [facility]; Protocol Last Admin: 01/12/20 06:50 Dose: Not Given Documented by: Fentanyl (Sublimaze Ivpb) 500 mcg in 100 mls @ 20 mls/hr IVPB TITR [facility]; Protocol Last Admin: 01/12/20 06:49 Dose: 50 mcg/hr, 10 mls/hr Documented by: Sodium Chloride (Normal Saline -) 250 mls @ 3,000 mls/hr IV PRN PRN PRN Reason: Hypotension during Dialysis Stop: 01/12/20 08:07 Propofol (Diprivan -) 1,000,000 mcg in 100 mls @ 7.92 mls/hr IVPB TITR [facility]; Protocol Last Admin: 01/12/20 09:43 Dose: 50 mcg/kg/min, 39.6 mls/hr Documented by: Sodium Chloride (Normal Saline -) 1,000 mls @ 75 mls/hr IV [facility]IR [facility] Last Admin: 01/12/20 09:44 Dose: 75 mls/hr Documented by: Vasopressin 40 units/ Sodium (Chloride) 100 mls @ 5 mls/hr IVPB [facility]; Protocol Last Admin: 01/12/20 08:12 Dose: 2.4 units/hr, 6 mls/hr Documented by: Sodium Chloride (Normal Saline -) 250 mls @ 3,000 mls/hr IV PRN PRN PRN Reason: Hypotension during Dialysis Stop: 01/13/20 08:46 Insulin Aspart (Novolog Vial Sliding Scale -) [facility]; Protocol Last Admin: 01/12/20 12:06 Dose: 4 units Documented by: Mupirocin (Bactroban Ointment (For Decolonization) -) 1 applic NS BID [facility] Stop: 01/15/20 21:59 Last Admin: 01/12/20 09:48 Dose: 1 applic Documented by: Sodium Zirconium Cyclosilicate (Lokelma) 10 gm PO DAILY [facility] Last Admin: 01/12/20 09:46 Dose: 10 gm Documented by: Sodium Zirconium Cyclosilicate (Lokelma) 10 gm PO DAILY [facility] Last Admin: 01/12/20 10:28 Dose: Not Given Documented by: - Objective Vital Signs: Vital Signs Temperature 98.7 F 01/12/20 06:00 Pulse Rate 101 H 01/12/20 15:02 Respiratory Rate 12 01/12/20 15:02 Blood Pressure 150/58 L 01/12/20 15:02 O2 Sat by Pulse Oximetry (%) 97 01/12/20 11:55 Constitutional: Yes: Calm Eyes: Yes: Conjunctiva Clear HENT: Yes: Atraumatic Neck: Yes: Supple Cardiovascular: Yes: S1, S2 Respiratory: Yes: Mechanically Ventilated Gastrointestinal: Yes: Soft, Abdomen, Obese Genitourinary: Yes: Johnson Present Musculoskeletal: Yes: Muscle Weakness Edema: Yes Edema: LLE: 1+, RLE: 1+ Neurological: Yes: Lethargy Labs: CBC, BMP 01/12/20 05:00 01/12/20 05:00 INR, PTT INR 1.54 (0.83-1.09) H 01/11/20 10:00 - ....Imaging Chest X-ray: Report Reviewed Problem List - Problems (1) NOVA (acute kidney injury) Code(s): N17.9 - ACUTE KIDNEY FAILURE, UNSPECIFIED (2) DM2 (diabetes mellitus, type 2) Code(s): E11.9 - TYPE 2 DIABETES MELLITUS WITHOUT COMPLICATIONS Qualifiers: Diabetes mellitus long term care administrator insulin use: with long term care administrator use Diabetes mellitus complication detail: with other circulatory complications (3) Hyperkalemia Code(s): E87.5 - HYPERKALEMIA (4) Metabolic acidosis Code(s): E87.2 - ACIDOSIS Assessment/Plan Current Medications Generic Name Dose Route Start Last Admin Trade Name Opal PRN Reason Stop Dose Admin Apixaban 5 mg 01/10/20 22:00 01/12/20 09:46 Eliquis - PO 5 mg BID [facility] Administration Chlorhexidine Gluconate 1 applic 01/10/20 22:00 01/11/20 21:58 Hibiclens For Decolonization - TP 1 applic HS [facility] Administration Collagenase 1 applic 01/11/20 14:15 01/12/20 09:48 Santyl - TP 1 applic DAILY [facility] Administration Protocol Fludrocortisone Acetate 0.2 mg 01/11/20 10:00 01/12/20 09:46 Florinef - PO 0.2 mg DAILY [facility] Administration Hydrocortisone Sodium Succinate 50 mg 01/11/20 04:15 01/12/20 09:45 Solu-Cortef - IVPB 50 mg Q6H-IV [facility] Administration Meropenem 1 gm/ Sodium 100 mls @ 200 mls/hr 01/11/20 10:00 01/12/20 09:47 Chloride IVPB 200 mls/hr BID [facility] Administration Midazolam HCl 100 mg in 100 mls @ 1 mls/hr 01/10/20 22:45 01/11/20 21:58 Midazolam 100mg/100ml-0.9%Nacl IVPB 10 mg/hr TITR [facility] 10 mls/hr Administration Protocol 1 MG/HR Norepinephrine Bitartrate 8,000 mcg in 500 mls @ 18.75 mls/hr 01/11/20 03:15 01/12/20 06:50 Levophed Bag IVPB 25 mcg/min TITR [facility] 93.75 mls/hr Administration Protocol 5 MCG/MIN Phenylephrine HCl 50,000 mcg in 500 mls @ 54 mls/hr 01/11/20 04:45 01/12/20 06:50 Sage-Synephrine CVP Not Given [facility] Protocol 90 MCG/MIN Fentanyl 500 mcg in 100 mls @ 20 mls/hr 01/11/20 06:16 01/12/20 06:49 Sublimaze Ivpb IVPB 50 mcg/hr TITR [facility] 10 mls/hr Administration Protocol Sodium Chloride 250 mls @ 3,000 mls/hr 01/11/20 08:07 Normal Saline - IV 01/12/20 08:07 PRN PRN Hypotension during Dialysis Propofol 1,000,000 mcg in 100 mls @ 7.92 mls/hr 01/11/20 08:30 01/12/20 09:43 Diprivan - IVPB 50 mcg/kg/min TITR [facility] 39.6 mls/hr Administration Protocol 10 MCG/KG/MIN Sodium Chloride 1,000 mls @ 75 mls/hr 01/11/20 08:26 01/12/20 09:44 Normal Saline - IV 75 mls/hr [facility] Administration Vasopressin 40 units/ Sodium 100 mls @ 5 mls/hr 01/11/20 10:15 01/12/20 08:12 Chloride IVPB 2.4 units/hr [facility] 6 mls/hr Administration Protocol 2 UNITS/HR Sodium Chloride 250 mls @ 3,000 mls/hr 01/12/20 08:46 Normal Saline - IV 01/13/20 08:46 PRN PRN Hypotension during Dialysis Insulin Aspart 1 vial 01/10/20 22:00 01/12/20 12:06 Novolog Vial Sliding Scale - SQ 4 units ACHS [facility] Administration Protocol Mupirocin 1 applic 01/10/20 22:00 01/12/20 09:48 Bactroban Ointment (For Decolonization) - NS 01/15/20 21:59 1 applic BID [facility] Administration Sodium Zirconium Cyclosilicate 10 gm 01/11/20 10:01/12/20 09:46 Lokelma PO 10 gm DAILY [facility] Administration Sodium Zirconium Cyclosilicate 10 gm 01/12/20 10:00 01/12/20 10:28 Lokelma PO Not Given DAILY [facility] Impression 1. NOVA 2. hyperkalemia 3. obesity 4. DM 5. a-fib 6. HTN 7. chronic lower extremity ulcers 8. gastritis 9. sepsis 10. hyperglycemia 11. metabolic acidosis 12. peripheral vascular disease 13. acute resp failure 14. shock Plan - will dialyze again today for hyperkalemia - cont pressors to map 65 - cont vent support - wound care - monitor bicarb - will UF 1 liter with HD - cont abx - follow cultures - discussed with icu team - prognosis guarded
--- NOTE | 2020-01-12 15:11 | PN ---
Physical Exam: SUBJECTIVE: Patient seen and examined at bedside. pt is intubated and sedated OBJECTIVE: Vital Signs Period Temp Pulse Resp BP Sys/Callahan Pulse Ox Last 24 Hr 98.7 F 79-111 11-17 83-150/47-82 96-100 GENERAL: The patient is awake, alert, and fully oriented, in no acute distress. HEAD: Normal with no signs of trauma. EYES: PERRL, extraocular movements intact LUNGS: vent sounds equal, scattered wheezes, no accessory muscle use. HEART: irregular rate and rhythm, S1, S2 systolic murmur ABDOMEN: Soft, nondistended, normoactive bowel sounds, no guarding EXTREMITIES: b/l LE open wounds, erythema Laboratory Last Values WBC 24.7 K/mm3 (4.0-10.0) H 01/12/20 05:00 RBC 3.57 M/mm3 (3.60-5.2) L 01/12/20 05:00 Hgb 10.3 GM/dL (10.7-15.3) L 01/12/20 05:00 Hct 31.9 % (32.4-45.2) L 01/12/20 05:00 MCV 89.4 fl (80-96) 01/12/20 05:00 MCH 28.8 pg (25.7-33.7) 01/12/20 05:00 MCHC 32.3 g/dl (32.0-36.0) 01/12/20 05:00 RDW 15.8 % (11.6-15.6) H 01/12/20 05:00 Plt Count 149 K/MM3 (134-434) D 01/12/20 05:00 MPV 9.7 fl (7.5-11.1) 01/12/20 05:00 Absolute Neuts (auto) 23.5 K/mm3 (1.5-8.0) H 01/12/20 05:00 Total Counted 100 01/11/20 02:00 Neutrophils % 95.2 % (42.8-82.8) H 01/12/20 05:00 Neutrophils % (Manual) 93.4 % (42.8-82.8) H 01/12/20 05:00 Band Neutrophils % 0.0 % 01/12/20 05:00 Lymphocytes % 1.3 % (8-40) L D 01/12/20 05:00 Lymphocytes % (Manual) 2.2 % (8-40) L D 01/12/20 05:00 Monocytes % 3.3 % (3.8-10.2) L 01/12/20 05:00 Monocytes % (Manual) 3 % (3.8-10.2) L D 01/12/20 05:00 Eosinophils % 0.1 % (0-4.5) D 01/12/20 05:00 Eosinophils % (Manual) 1.1 % (0-4.5) D 01/12/20 05:00 Basophils % 0.1 % (0-2.0) 01/12/20 05:00 Basophils % (Manual) 0.0 % (0-2.0) 01/12/20 05:00 Myelocytes % (Man) 0 % (0-2) 01/12/20 05:00 Promyelocytes % (Man) 0 % (0-2) 01/12/20 05:00 Blast Cells % (Manual) 0 % (0-0) 01/12/20 05:00 Nucleated RBC % 0 % (0-0) 01/12/20 05:00 Metamyelocytes 0 % (0-2) 01/12/20 05:00 Hypochromia 0 01/12/20 05:00 Platelet Estimate Decreased 01/12/20 05:00 Platelet Comment No clotting detected 01/11/20 02:00 Platelet Comment No clumping noted 01/11/20 02:00 Polychromasia 1+ 01/12/20 05:00 Poikilocytosis 1+ 01/12/20 05:00 Anisocytosis 1+ 01/12/20 05:00 Microcytosis 1+ 01/12/20 05:00 Macrocytosis 0 01/12/20 05:00 PT with INR 18.30 SEC (9.7-13.0) H 01/11/20 10:00 INR 1.54 (0.83-1.09) H 01/11/20 10:00 PTT (Actin FS) 32.4 SECONDS (25.2-36.5) 01/11/20 10:00 Anticoagulation Therapy No Result Required. 01/10/20 22:12 Puncture Site Right radial 01/10/20 22:12 Patient Temperature No Result Required. 01/10/20 22:12 ABG pH 7.257 (7.350-7.450) L 01/10/20 22:12 ABG pCO2 30.60 mmHg (35-45) L 01/10/20 22:12 ABG pO2 121.3 mmHg (80-100) H 01/10/20 22:12 ABG HCO3 13.3 mmol/L (22-27) L 01/10/20 22:12 ABG O2 Sat (Measured) 97.9 mmHg (95-98) 01/10/20 22:12 ABG O2 Content No Result Required. 01/10/20 22:12 ABG Base Excess -12.5 mmol/L (-2-2) L 01/10/20 22:12 Kwesi Test No Result Required. 01/10/20 22:12 Patient On Oxygen Yes 01/10/20 22:12 O2 Delivery Device Vent 01/10/20 22:12 Oxygen Flow Rate 50% 01/10/20 22:12 Vent Mode A/c 01/10/20 22:12 Vent Rate 12 01/10/20 22:12 Mechanical Rate No Result Required. 01/10/20 22:12 PEEP 5.0 cmH2O 01/10/20 22:12 Pressure Support Vent 500 01/10/20 22:12 Sodium 128 mmol/L (136-145) L 01/12/20 05:00 Potassium 6.3 mmol/L (3.5-5.1) H* 01/12/20 05:00 Chloride 96 mmol/L (98-107) L 01/12/20 05:00 Carbon Dioxide 20 mmol/L (21-32) L 01/12/20 05:00 Anion Gap 13 MMOL/L (8-16) 01/12/20 05:00 BUN 70.4 mg/dL (7-18) H 01/12/20 05:00 Creatinine 3.9 mg/dL (0.55-1.3) H 01/12/20 05:00 Est GFR (CKD-EPI)AfAm 14.07 01/12/20 05:00 Est GFR (CKD-EPI)NonAf 12.14 01/12/20 05:00 POC Glucometer 221 UNITS (80-120) 01/12/20 11:57 Random Glucose 290 mg/dL (74-106) H 01/12/20 05:00 Lactic Acid 0.6 mmol/L (0.4-2.0) 01/10/20 11:18 Calcium 7.4 mg/dL (8.5-10.1) L 01/12/20 05:00 Phosphorus 8.8 mg/dL (2.5-4.9) H 01/12/20 05:00 Magnesium 2.0 mg/dL (1.8-2.4) 01/12/20 05:00 Total Bilirubin 0.9 mg/dL (0.2-1) 01/12/20 05:00 AST 57 U/L (15-37) H 01/12/20 05:00 ALT 51 U/L (13-61) 01/12/20 05:00 Alkaline Phosphatase 182 U/L (45-117) H 01/12/20 05:00 Creatine Kinase 2014 U/L (26-192) H 01/11/20 10:00 Creatine Kinase Index 0.2 % (0.0-5.0) 01/11/20 10:00 CK-MB (CK-2) 5.3 ng/mL (0.5-3.6) H 01/11/20 10:00 Troponin I 0.02 ng/ml (0.00-0.05) 01/11/20 10:00 Total Protein 6.4 g/dl (6.4-8.2) 01/12/20 05:00 Albumin 2.3 g/dl (3.4-5.0) L 01/12/20 05:00 Urine Color Dk yellow 01/10/20 16:00 Urine Appearance Turbid 01/10/20 16:00 Urine pH 5.0 (5.0-8.0) 01/10/20 16:00 Ur Specific [place] 1.027 (1.010-1.035) 01/10/20 16:00 Urine Protein 1+ (NEGATIVE) H 01/10/20 16:00 Urine Glucose (UA) Trace (NEGATIVE) 01/10/20 16:00 Urine Ketones Trace (NEGATIVE) H 01/10/20 16:00 Urine Blood Negative (NEGATIVE) 01/10/20 16:00 Urine Nitrite Negative (NEGATIVE) 01/10/20 16:00 Urine Bilirubin Negative (NEGATIVE) 01/10/20 16:00 Urine Urobilinogen 1.0 mg/dL (0.2-1.0) 01/10/20 16:00 Ur Leukocyte Esterase Negative (NEGATIVE) 01/10/20 16:00 Urine WBC (Auto) 76.2 /uL (0-25.8) 01/10/20 16:00 Urine RBC (Auto) 27 /uL (0-23.9) 01/10/20 16:00 Urine Casts (Auto) 57 /uL (0-3.1) 01/10/20 16:00 U Pathogenic Cast Auto Negative /lpf (NEGATIVE) 01/10/20 16:00 U Epithel Cells (Auto) >36 /uL (0-25.1) 01/10/20 16:00 Urine Bacteria (Auto) 259.1 /uL (0-1359) 01/10/20 16:00 Random Vancomycin 21.3 ug/ml (5-26) 01/12/20 05:00 COVID-19 (AZEEM) Not detected (Not Detected) 01/10/20 16:00 Hep Bs Antigen Negative (Negative) 01/10/20 17:15 Hep C Ab Diagnostic <0.1 s/co ratio (0.0-0.9) 01/10/20 17:15 Active Medications Generic Name Dose Route Start Last Admin Trade Name Freq PRN Reason Stop Dose Admin Apixaban 5 mg 01/10/20 22:00 01/12/20 09:46 Eliquis - PO 5 mg BID LACNE Administration Chlorhexidine Gluconate 1 applic 01/10/20 22:00 01/11/20 21:58 Hibiclens For Decolonization - TP 1 applic HS LANCE Administration Collagenase 1 applic 01/11/20 14:15 01/12/20 09:48 Santyl - TP 1 applic DAILY LANCE Administration Protocol Fludrocortisone Acetate 0.2 mg 01/11/20 10:00 01/12/20 09:46 Florinef - PO 0.2 mg DAILY LANCE Administration Hydrocortisone Sodium Succinate 50 mg 01/11/20 04:15 01/12/20 09:45 Solu-Cortef - IVPB 50 mg Q6H-IV LANCE Administration Meropenem 1 gm/ Sodium 100 mls @ 200 mls/hr 01/11/20 10:00 01/12/20 09:47 Chloride IVPB 200 mls/hr BID LANCE Administration Midazolam HCl 100 mg in 100 mls @ 1 mls/hr 01/10/20 22:45 01/11/20 21:58 Midazolam 100mg/100ml-0.9%Nacl IVPB 10 mg/hr TITR LANCE 10 mls/hr Administration Protocol 1 MG/HR Norepinephrine Bitartrate 8,000 mcg in 500 mls @ 18.75 mls/hr 01/11/20 03:15 01/12/20 06:50 Levophed Bag IVPB 25 mcg/min TITR LANCE 93.75 mls/hr Administration Protocol 5 MCG/MIN Phenylephrine HCl 50,000 mcg in 500 mls @ 54 mls/hr 01/11/20 04:45 01/12/20 06:50 Sage-Synephrine CVP Not Given ASDIR LANCE Protocol 90 MCG/MIN Fentanyl 500 mcg in 100 mls @ 20 mls/hr 01/11/20 06:16 01/12/20 06:49 Sublimaze Ivpb IVPB 50 mcg/hr TITR LANCE 10 mls/hr Administration Protocol Sodium Chloride 250 mls @ 3,000 mls/hr 01/11/20 08:07 Normal Saline - IV 01/12/20 08:07 PRN PRN Hypotension during Dialysis Propofol 1,000,000 mcg in 100 mls @ 7.92 mls/hr 01/11/20 08:30 01/12/20 09:43 Diprivan - IVPB 50 mcg/kg/min TITR LANCE 39.6 mls/hr Administration Protocol 10 MCG/KG/MIN Sodium Chloride 1,000 mls @ 75 mls/hr 01/11/20 08:26 01/12/20 09:44 Normal Saline - IV 75 mls/hr ASDIR LANCE Administration Vasopressin 40 units/ Sodium 100 mls @ 5 mls/hr 01/11/20 10:15 01/12/20 08:12 Chloride IVPB 2.4 units/hr ASDIR LANCE 6 mls/hr Administration Protocol 2 UNITS/HR Sodium Chloride 250 mls @ 3,000 mls/hr 01/12/20 08:46 Normal Saline - IV 01/13/20 08:46 PRN PRN Hypotension during Dialysis Insulin Aspart 1 vial 01/10/20 22:00 01/12/20 12:06 Novolog Vial Sliding Scale - SQ 4 units ACHS LANCE Administration Protocol Mupirocin 1 applic 01/10/20 22:00 01/12/20 09:48 Bactroban Ointment (For Decolonization) - NS 01/15/20 21:59 1 applic BID LANCE Administration Sodium Zirconium Cyclosilicate 10 gm 01/11/20 10:00 01/12/20 09:46 Lokelma PO 10 gm DAILY LANCE Administration Sodium Zirconium Cyclosilicate 10 gm 01/12/20 10:00 01/12/20 10:28 Lokelma PO Not Given DAILY LANCE HeadCT: Allowing for partially obscuring artifact there appears to be interval development of a 4 x 3 cm nonspecific right parieto-occipital hypodense focus in comparison to a prior CT exam of 04/24/2019. This finding could be on the basis of acute or chronic infarction versus possible infectious or neoplastic disease. A component of this appearance could also conceivably be artifactual as discussed above. Correlation with follow-up contrast enhanced CT or MRI is suggested. Cspine CT : No definite fracture is identified. ASSESSMENT/PLAN: 54 yo F w/ PMH CKD , afib (Eliquis), DM, HTN, chronic LE ulcers . admitted for acute toxic metabolic encephalopathy in icu for septic shock requiring pressor support. Neuro intubated and sedated on propofol CT head reviewed, rd above. reviewed with radiology, possible acute ischemic stroke. will start atorvastatin neuro consulted Cardio Afib hypotensive unresponsive to fluid resuscitation s/p 3L LR HTN - c/w levophed, phenylephrine, vasopressin support to maintain MAP >65. c/w fludrocortisone and solu cortef -c/w eliquis 5 BID -hold home HTN meds due to septic shock Pulmonary -intubated - monitor and maintain Spo2>90% -rpt ABG reviewed, CXR reviewed A/C: /04/30/70 GI -no acute issues Endo DM -hold home PO meds -c/w ISS + BGM ACHS - will add levemir 8 U HS . cont to monitor ID septic shock likely 2/2 cellulitis - c/w Meropenem d 2 - f/u cultures -Vascular surgeon consulted for LE ulcers with pending recommendations -ID , Dr. Jaylon keith appreciated Renal Renal failure CKD -Nephro consulted. s/p dialysis today -s/p hyperkalemia cocktail -Monitor I/O's FEN - NS @ 75 - monitor and replete electrolytes - NPO GERMAN GONZALEZ 01/10 Ppx -DVT: on eliquis cont icu level of care. meds confirmed with pharmacy Visit type - Emergency Visit Emergency Visit: No - New Patient This patient is new to me today: Yes Date on this admission: 01/12/20 - Critical Care Critical Care patient: Yes Total Critical Care Time (in minutes): 36 Critical Care Statement: The care of this patient involved high complexity decision making to prevent further life threatening deterioration of the patient's condition and/or to evaluate & treat vital organ system(s) failure or risk of failure. - Discharge Referral Referred to [facility] No ATTENDING PHYSICIAN STATEMENT I saw and evaluated the patient. I reviewed the resident's note and discussed the case with the resident. I agree with the resident's findings and plan as documented. SUBJECTIVE: OBJECTIVE: ASSESSMENT AND PLAN:
[2020-01-12 16:17] LABS: ALBUMIN 2.5 g/dl (3.4-5.0); BILIRUBIN,TOTAL 0.6 mg/dL (0.2-1); CALCIUM 7.5 mg/dL (8.5-10.1); CREATININE 2.1 mg/dL (0.55-1.3); POTASSIUM 3.5 mmol/L (3.5-5.1); TOT PROT 6.9 g/dl (6.4-8.2)
[2020-01-12 16:23] LABS: BLOOD UREA NITROGEN 29.6 mg/dL (7-18)
--- NOTE | 2020-01-12 19:17 | CON.NEURO ---
Consult Consult Specialty:: NEUROLOGY-GENIE GOMEZ - History of Present Illness History of Present Illness: 54 year old female w/ PMH CKD, afib (on Eliquis), DM, chronic LE ulcers (dresses them herself) and noncompliance. Upon my examination, pt was responsive to voice. Pt endorses to falling, without head trauma or loss of conciousness. Also endorsed to weakness for several days. Denies fever. History of present illness limited due to pt being poor historian. As per EMS, pt lives in poor living conditions filled with animal excrement. Renal (Dr. Epstein) consulted and present in ED due to worsening renal function. L femoral shiley placed for urgent HD. ER course was notable for: (1) IV calcium gluconate IV insulin IV dextrose (2) Insertion of dialysis catheter in L femoral -Today given AMS pt. had CT head-noted to have right parieto-occipital hypodensity. - Past Medical History Cardio/Vascular: Yes: AFIB, HTN Pulmonary: Yes: Asthma Gastrointestinal: Yes: Other (gallstones) Hepatobiliary: Yes: Cholelithiasis (passed without surgery), Other (fatty liver) Renal/: Yes: Renal Inusuff ...LMP: 01/10/20 ...: No Infectious Disease: Yes: Other (LE cellulitis) Psych: Yes: Bipolar Endocrine: Yes: Diabetes Mellitus Dermatology: Yes: Cellulitis (b/l LE with ulcerations) Additional Medical History: obesity - Alcohol/Substance Use Hx Alcohol Use: No History of Substance Use: reports: Prescription (narcotics) - Smoking History Smoking history: Former smoker Have you smoked in the past 12 months: No Aproximately how many cigarettes per day: 0 If you are a former smoker, when did you quit?: quit age 13 - Social History Usual Living Arrangement: With Spouse ADL: Independent 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 History of Recent Travel: No Home Medications - Allergies Allergies/Adverse Reactions: Allergies Allergy/AdvReac Type Severity Reaction Status Date / Time nut - unspecified Allergy Verified 01/10/20 10:59 Penicillins Allergy Verified 01/10/20 10:59 walnut Allergy Verified 01/10/20 10:59 caviar Allergy Uncoded 01/10/20 10:59 - Home Medications Home Medications: Ambulatory Orders Apixaban [Eliquis -] 5 mg PO BID #60 tablet 11/05/19 Ferrous Sulfate [Iron] 325 mg PO BID #60 tablet 11/05/19 Folic Acid 1 mg PO DAILY #30 tablet 11/05/19 Furosemide [Lasix -] 20 mg PO DAILY #30 tablet 11/05/19 Gabapentin [Neurontin -] 600 mg PO TID #180 capsule 11/05/19 traMADol HCL [Ultram -] 50 mg PO Q8H 7 Days #21 tablet MDD 3 11/06/19 Enalapril Maleate [Vasotec -] 5 mg PO DAILY 01/12/20 Insulin Glargine,Hum.rec.anlog [Lantus Solostar] 15 unit SQ HS 01/12/20 Metoprolol Succinate [Toprol Xl] 25 mg PO DAILY 01/12/20 Oxycodone HCl/Acetaminophen [Oxycodon-Acetaminophen 7.5-325] 1 tab PO DAILY 01/12/20 Potassium Chloride 10 meq PO DAILY 01/12/20 Family Medical History Family History: Denies Physical Exam-Neuro Vital Signs: Vital Signs Temperature 98.7 F 01/12/20 18:00 Pulse Rate 98 H 01/12/20 18:00 Respiratory Rate 12 01/12/20 18:00 Blood Pressure 99/63 01/12/20 18:00 O2 Sat by Pulse Oximetry (%) 96 01/12/20 18:00 Labs: CBC, BMP 01/12/20 05:00 01/12/20 15:00 INR, PTT INR 1.54 (0.83-1.09) H 01/11/20 10:00 - Neuro Exam Level Of Consciousness: Yes: Sedated Eyes: Yes: SUSIE (Absent Dolls' eye movements) Mini Mental Exam: Sedated Cranial Nerves II-XII Intact: No (+ bilat corneals, absent Doll's eyemovements) Babinski: Absent (bilat silent toes) Motor Strength: 0/5: Left Arm, Right Arm, Left Leg, Right Leg (Unable to test sedated) Gait: Other (sedated) Assessment/Plan Pt. with multiple med. conditions, ESRD/DM/Afib on Eliquis+recent fall?? she was hypotensive on pressors since admission. CT head-large right occipiotal/parietal hypodensity-in post. watershed region, likely infarct 2/2 hypotension, less likely embolic but possibly so. Given size of infarct there is a risk of hemo rrhagic conversion-would hold Eliquis for now and repeat CT head tomorrow or tonight. Would hyperventilate to pCO2=30 in case there is swelling of infarct and increased ICP. Thank you, Wendy Blevins MD
[2020-01-12 20:23] LABS: ARTERIAL BLD GAS O2 SATURATION 92.1 mmHg (95-98); ARTERIAL BLOOD GAS BASE EXCESS -6.1 mmol/L (-2-2); ARTERIAL BLOOD GAS PO2 82.4 mmHg (80-100); ARTERIAL BLOOD GAS pH 7.139 (7.350-7.450)
[2020-01-12 20:25] LABS: ALLENS TEST POSITIVE
[2020-01-12 20:26] LABS: VENT MODE A/C; VENT RATE 12
[2020-01-12] MEDS: CHLORHEXIDINE GLUCONATE 4% CLEANSER FOR DECOLONIZATION TP SCH (21:02)
[2020-01-12] MEDS: ATORVASTATIN CA 80 MG TABLET (FP) PO SCH (21:02)
[2020-01-12 21:20] LABS: ARTERIAL BLD GAS O2 SATURATION 92.9 mmHg (95-98); ARTERIAL BLOOD GAS BASE EXCESS -4.9 mmol/L (-2-2); ARTERIAL BLOOD GAS pH 7.239 (7.350-7.450)
[2020-01-12 21:22] LABS: ALLENS TEST POSITIVE
[2020-01-12 21:23] LABS: VENT MODE A/C; VENT RATE 18
[2020-01-12] MEDS ORDERED: INSULIN (LEVEMIR) 100 UNITS/ML UNITS SQ SCH (22:00)
[2020-01-13] MEDS: FENTANYL IVPB 500 MCG/100 ML BAG IVPB SCH ×4 (01:00→16:55)
[2020-01-13] MEDS: MIDAZOLAM IN 0.9 % SOD.CHLORID 100 MG/100 ML PLAST..BAG IVPB SCH ×2 (01:38→03:23)
[2020-01-13] MEDS: HYDROCORTISONE SOD SUCCINATE 100 MG/2 ML VIAL IVPB SCH (02:23)
[2020-01-13] MEDS: PROPOFOL 1,000,000 MCG/100 ML VIAL IVPB SCH ×4 (02:23→21:00)
[2020-01-13] MEDS: NOREPINEPHRINE BITARTRATE 8,000 MCG/500 ML BAG IVPB SCH (03:19)
[2020-01-13] MEDS ORDERED: FENTANYL NS IVPB 500 MCG/100 ML BAG IVPB ONE (03:21)
[2020-01-13] MEDS ORDERED: MIDAZOLAM IN 0.9 % SOD.CHLORID 1 MG/1 ML PLAST..BAG ONE (03:21)
[2020-01-13 05:31] LABS: ARTERIAL BLD GAS O2 SATURATION 95.3 mmHg (95-98); ARTERIAL BLOOD GAS BASE EXCESS -5.1 mmol/L (-2-2); ARTERIAL BLOOD GAS PO2 84.4 mmHg (80-100); ARTERIAL BLOOD GAS pH 7.296 (7.350-7.450)
[2020-01-13 05:37] LABS: ALLENS TEST POSITIVE
[2020-01-13 05:38] LABS: VENT MODE A/C; VENT RATE 20
[2020-01-13] MEDS: PHENYLEPHRINE NS PREMIX 50,000 MCG/500 ML BAG CVP SCH (05:41)
[2020-01-13] MEDS: INSULIN SLIDING SCALE (NOVOLOG) 1 VIAL SQ SCH ×4 (06:23→21:12)
[2020-01-13 06:48] LABS: BASO % 0.2 % (0-2.0); EOS % 1.2 % (0-4.5); HEMATOCRIT 27.3 % (32.4-45.2); MCH 28.2 pg (25.7-33.7); MCHC 32.9 g/dl (32.0-36.0); MEAN CELL VOLUME 85.8 fl (80-96); MEAN PLT VOLUME 9.3 fl (7.5-11.1); MONO % 4.5 % (3.8-10.2); NEUT % 92.1 % (42.8-82.8); PLATELET COUNT 81 K/MM3 (134-434); RBC 3.18 M/mm3 (3.60-5.2); WHITE BLOOD COUNT 12.8 K/mm3 (4.0-10.0)
[2020-01-13 07:14] LABS: ALBUMIN 1.9 g/dl (3.4-5.0); BILIRUBIN,TOTAL 0.5 mg/dL (0.2-1); CALCIUM 7.5 mg/dL (8.5-10.1); CREATININE 3.7 mg/dL (0.55-1.3); MAGNESIUM 1.8 mg/dL (1.8-2.4); PHOSPHOROUS 8.1 mg/dL (2.5-4.9); POTASSIUM 4.9 mmol/L (3.5-5.1); TOT PROT 5.5 g/dl (6.4-8.2)
[2020-01-13 07:18] LABS: BLOOD UREA NITROGEN 58.8 mg/dL (7-18)
[2020-01-13] MEDS ORDERED: MEROPENEM 1 GM VIAL (RESTRICTED TO ID) IVPB ONE ×2 (09:17→20:27)
[2020-01-13] MEDS ORDERED: SODIUM CHLORIDE 100 ML IVPB ONE ×2 (09:17→20:27)
[2020-01-13] MEDS: SODIUM ZIRCONIUM CYCLOSILICATE (LOKELMA) 5 GM PACKET PO SCH (09:23)
[2020-01-13] MEDS: MEROPENEM 1 GM in SODIUM CHLORIDE 100 ML IVPB SCH ×2 (09:23→21:14)
[2020-01-13] MEDS: PANTOPRAZOLE SODIUM 40 MG VIAL IVPUSH SCH (09:23)
[2020-01-13] MEDS: MUPIROCIN 2% TOPICAL OINTMENT FOR DECOLONIZATION NS SCH ×2 (09:24→21:13)
[2020-01-13 09:47] LABS: ARTERIAL BLD GAS O2 SATURATION 97.1 mmHg (95-98); ARTERIAL BLOOD GAS BASE EXCESS -5.5 mmol/L (-2-2); ARTERIAL BLOOD GAS PO2 96.2 mmHg (80-100); ARTERIAL BLOOD GAS pH 7.348 (7.350-7.450)
[2020-01-13 09:48] LABS: ALLENS TEST POSITIVE
[2020-01-13 09:49] LABS: VENT MODE AC; VENT RATE 22
--- NOTE | 2020-01-13 10:09 | PN ---
Progress Note, Physician - Current Medication List Current Medications: Active Medications Atorvastatin Calcium (Lipitor -) 80 mg PO HS LANCE Last Admin: 01/12/20 21:02 Dose: 80 mg Documented by: Chlorhexidine Gluconate (Hibiclens For Decolonization -) 1 applic TP HS LANCE Last Admin: 01/12/20 21:02 Dose: 1 applic Documented by: Collagenase (Santyl -) 1 applic TP DAILY [facility]; Protocol Last Admin: 01/12/20 09:48 Dose: 1 applic Documented by: Meropenem 1 gm/ Sodium (Chloride) 100 mls @ 200 mls/hr IVPB BID LANCE Last Admin: 01/13/20 09:23 Dose: 200 mls/hr Documented by: Midazolam HCl (Midazolam 100mg/100ml-0.9%Nacl) 100 mg in 100 mls @ 1 mls/hr IVPB TITR [facility]; Protocol Last Admin: 01/13/20 03:23 Dose: 2 mg/hr, 2 mls/hr Documented by: Norepinephrine Bitartrate (Levophed Bag) 8,000 mcg in 500 mls @ 18.75 mls/hr IVPB TITR [facility]; Protocol Last Titration: 01/13/20 09:00 Dose: 4 mcg/min, 15 mls/hr Documented by: Fentanyl (Sublimaze Ivpb) 500 mcg in 100 mls @ 20 mls/hr IVPB TITR [facility]; Protocol Last Admin: 01/13/20 06:22 Dose: Not Given Documented by: Propofol (Diprivan -) 1,000,000 mcg in 100 mls @ 7.92 mls/hr IVPB TITR [facility]; Protocol Last Admin: 01/13/20 09:22 Dose: 35 mcg/kg/min, 27.72 mls/hr Documented by: Sodium Chloride (Normal Saline -) 250 mls @ 3,000 mls/hr IV PRN PRN PRN Reason: Hypotension during Dialysis Stop: 01/13/20 08:46 Insulin Aspart (Novolog Vial Sliding Scale -) 1 vial SQ ACHS [facility]; Protocol Last Admin: 01/13/20 06:23 Dose: 2 units Documented by: Mupirocin (Bactroban Ointment (For Decolonization) -) 1 applic NS BID [facility] Stop: 01/15/20 21:59 Last Admin: 01/13/20 09:24 Dose: 1 applic Documented by: Pantoprazole Sodium (Protonix Iv) 40 mg IVPUSH DAILY [facility] Last Admin: 01/13/20 09:23 Dose: 40 mg Documented by: Sodium Zirconium Cyclosilicate (Lokelma) 10 gm PO DAILY [facility] Last Admin: 01/13/20 09:23 Dose: 10 gm Documented by: - Objective Vital Signs: Vital Signs Temperature 98.2 F 01/13/20 06:00 Pulse Rate 68 01/13/20 08:09 Respiratory Rate 22 H 01/13/20 08:29 Blood Pressure 102/72 01/13/20 08:00 O2 Sat by Pulse Oximetry (%) 98 01/13/20 08:29 Cardiovascular: Yes: S1, S2 Respiratory: Yes: Mechanically Ventilated Gastrointestinal: Yes: Normal Bowel Sounds, Soft Labs: CBC, BMP 01/13/20 05:00 01/13/20 05:00 INR, PTT INR 1.54 (0.83-1.09) H 01/11/20 10:00 Problem List - Problems (1) Septic shock Assessment/Plan: IV ABX ID CONSULT CULTURES Microbiology 01/10/20 11:10 Leg - Right Lower Gram Stain - Final 01/10/20 11:10 Leg - Right Lower Wound Culture - Preliminary Klebsiella Pneumoniae Proteus Mirabilis Enterococcus Avium Lactose Fermenting Neg Bacilli 01/10/20 11:10 Blood - Peripheral Venous Blood Culture - Preliminary NO GROWTH OBTAINED AFTER 48 HOURS, INCUBATION TO CONTINUE FOR 3 DAYS. 01/10/20 11:10 Blood - Peripheral Venous Blood Culture - Preliminary NO GROWTH OBTAINED AFTER 48 HOURS, INCUBATION TO CONTINUE FOR 3 DAYS. 01/10/20 16:00 Urine - Urine - Catheterized Urine Culture - Final NO GROWTH OBTAINED Code(s): A41.9 - SEPSIS, UNSPECIFIED ORGANISM; R65.21 - SEVERE SEPSIS WITH SEPTIC SHOCK (2) Respiratory failure Assessment/Plan: VENT ICU CARE PULM CONSULT Code(s): J96.90 - RESPIRATORY FAILURE, UNSP, UNSP W HYPOXIA OR HYPERCAPNIA (3) Diabetic calf ulcer Assessment/Plan: SURGICAL CONSULT IV ABX Code(s): E11.622 - TYPE 2 DIABETES MELLITUS WITH OTHER SKIN ULCER; L97.209 - NON-PRESSURE CHRONIC ULCER OF UNSP CALF WITH UNSP SEVERITY (4) Cellulitis Assessment/Plan: IV ABX WOUND CARE Code(s): L03.90 - CELLULITIS, UNSPECIFIED Qualifiers: Site of cellulitis: unspecified site Qualified Code(s): L03.90 - Cellulitis, unspecified (5) NOVA (acute kidney injury) Assessment/Plan: high potasium and low na repeat now then assess renal on case ivf--on ns Code(s): N17.9 - ACUTE KIDNEY FAILURE, UNSPECIFIED (6) Acute metabolic encephalopathy Assessment/Plan: ct noted with lesion--unable to do mri neuro consult Code(s): G93.41 - METABOLIC ENCEPHALOPATHY (7) CVA (cerebral vascular accident) Assessment/Plan: ct noted--large with hemorrhage hold ac neuro on case Code(s): I63.9 - CEREBRAL INFARCTION, UNSPECIFIED
[2020-01-13 10:22] LABS: ANISOCYTOSIS 0; MACROCYTOSIS 0; PLATELET ESTIMATE DECREASED
[2020-01-13] MEDS ORDERED: SODIUM ZIRCONIUM CYCLOSILICATE (LOKELMA) 5 GM PACKET PO ONE (12:46)
--- NOTE | 2020-01-13 12:46 | PN ---
Progress Note, Physician History of Present Illness: Pt seen and examined at bedside. She remains in the ICU. SHe remains intubated. - Current Medication List Current Medications: Active Medications Atorvastatin Calcium (Lipitor -) 80 mg PO HS LANCE Last Admin: 01/12/20 21:02 Dose: 80 mg Documented by: Chlorhexidine Gluconate (Hibiclens For Decolonization -) 1 applic TP HS LANCE Last Admin: 01/12/20 21:02 Dose: 1 applic Documented by: Collagenase (Santyl -) 1 applic TP DAILY LANCE; Protocol Last Admin: 01/12/20 09:48 Dose: 1 applic Documented by: Meropenem 1 gm/ Sodium (Chloride) 100 mls @ 200 mls/hr IVPB BID LANCE Last Admin: 01/13/20 09:23 Dose: 200 mls/hr Documented by: Midazolam HCl (Midazolam 100mg/100ml-0.9%Nacl) 100 mg in 100 mls @ 1 mls/hr IVPB TITR LANCE; Protocol Last Admin: 01/13/20 03:23 Dose: 2 mg/hr, 2 mls/hr Documented by: Norepinephrine Bitartrate (Levophed Bag) 8,000 mcg in 500 mls @ 18.75 mls/hr IVPB TITR LANCE; Protocol Last Titration: 01/13/20 09:00 Dose: 4 mcg/min, 15 mls/hr Documented by: Fentanyl (Sublimaze Ivpb) 500 mcg in 100 mls @ 20 mls/hr IVPB TITR LANCE; Protocol Last Admin: 01/13/20 06:22 Dose: Not Given Documented by: Propofol (Diprivan -) 1,000,000 mcg in 100 mls @ 7.92 mls/hr IVPB TITR LANCE; Protocol Last Admin: 01/13/20 09:22 Dose: 35 mcg/kg/min, 27.72 mls/hr Documented by: Sodium Chloride (Normal Saline -) 250 mls @ 3,000 mls/hr IV PRN PRN PRN Reason: Hypotension during Dialysis Stop: 01/13/20 08:46 Insulin Aspart (Novolog Vial Sliding Scale -) 1 vial SQ ACHS LANCE; Protocol Last Admin: 01/13/20 06:23 Dose: 2 units Documented by: Mupirocin (Bactroban Ointment (For Decolonization) -) 1 applic NS BID LANCE Stop: 01/15/20 21:59 Last Admin: 01/13/20 09:24 Dose: 1 applic Documented by: Pantoprazole Sodium (Protonix Iv) 40 mg IVPUSH DAILY [facility] Last Admin: 01/13/20 09:23 Dose: 40 mg Documented by: Sodium Zirconium Cyclosilicate (Lokelma) 10 gm PO DAILY [facility] Last Admin: 01/13/20 09:23 Dose: 10 gm Documented by: - Objective Vital Signs: Vital Signs Temperature 98.1 F 01/13/20 10:09 Pulse Rate 72 01/13/20 10:09 Respiratory Rate 22 H 01/13/20 10:09 Blood Pressure 108/74 01/13/20 10:09 O2 Sat by Pulse Oximetry (%) 99 01/13/20 10:09 Constitutional: Yes: Calm Eyes: Yes: Conjunctiva Clear Cardiovascular: Yes: S1, S2 Respiratory: Yes: Mechanically Ventilated Gastrointestinal: Yes: Soft, Abdomen, Obese Genitourinary: Yes: Johnson Present Musculoskeletal: Yes: Muscle Weakness Edema: Yes Edema: LLE: 1+, RLE: 1+ Wound/Incision: Yes: Dressing Dry and Intact Neurological: Yes: Lethargy Labs: CBC, BMP 01/13/20 05:00 01/13/20 05:00 INR, PTT INR 1.54 (0.83-1.09) H 01/11/20 10:00 - ....Imaging Chest X-ray: Report Reviewed Problem List - Problems (1) NOVA (acute kidney injury) Code(s): N17.9 - ACUTE KIDNEY FAILURE, UNSPECIFIED (2) DM2 (diabetes mellitus, type 2) Code(s): E11.9 - TYPE 2 DIABETES MELLITUS WITHOUT COMPLICATIONS Qualifiers: 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: with [facility] use Diabetes mellitus complication detail: with other circulatory complications (3) Hyperkalemia Code(s): E87.5 - HYPERKALEMIA (4) Metabolic acidosis Code(s): E87.2 - ACIDOSIS Assessment/Plan Current Medications Generic Name Dose Route Start Last Admin Trade Name Freq PRN Reason Stop Dose Admin Atorvastatin Calcium 80 mg 01/12/20 22:00 01/12/20 21:02 Lipitor - PO 80 mg HS [facility] Administration Chlorhexidine Gluconate 1 applic 01/10/20 22:00 01/12/20 21:02 Hibiclens For Decolonization - TP 1 applic HS LANCE Administration Collagenase 1 applic 01/11/20 14:15 01/12/20 09:48 Santyl - TP 1 applic DAILY LANCE Administration Protocol Meropenem 1 gm/ Sodium 100 mls @ 200 mls/hr 01/11/20 10:00 01/13/20 09:23 Chloride IVPB 200 mls/hr BID LANCE Administration Midazolam HCl 100 mg in 100 mls @ 1 mls/hr 01/10/20 22:45 01/13/20 03:23 Midazolam 100mg/100ml-0.9%Nacl IVPB 2 mg/hr TITR LANCE 2 mls/hr Administration Protocol 1 MG/HR Norepinephrine Bitartrate 8,000 mcg in 500 mls @ 18.75 mls/hr 01/11/20 03:15 01/13/20 09:00 Levophed Bag IVPB 4 mcg/min TITR LANCE 15 mls/hr Titration Protocol 5 MCG/MIN Fentanyl 500 mcg in 100 mls @ 20 mls/hr 01/11/20 06:16 01/13/20 06:22 Sublimaze Ivpb IVPB Not Given TITR LANCE Protocol Propofol 1,000,000 mcg in 100 mls @ 7.92 mls/hr 01/11/20 08:30 01/13/20 09:22 Diprivan - IVPB 35 mcg/kg/min TITR LANCE 27.72 mls/hr Administration Protocol 10 MCG/KG/MIN Sodium Chloride 250 mls @ 3,000 mls/hr 01/12/20 08:46 Normal Saline - IV 01/13/20 08:46 PRN PRN Hypotension during Dialysis Insulin Aspart 1 vial 01/10/20 22:00 01/13/20 06:23 Novolog Vial Sliding Scale - SQ 2 units ACHS LANCE Administration Protocol Mupirocin 1 applic 01/10/20 22:00 01/13/20 09:24 Bactroban Ointment (For Decolonization) - NS 01/15/20 21:59 1 applic BID LANCE Administration Pantoprazole Sodium 40 mg 01/13/20 10:00 01/13/20 09:23 Protonix Iv IVPUSH 40 mg DAILY [facility] Administration Sodium Zirconium Cyclosilicate 10 gm 01/11/20 10:00 01/13/20 09:23 Lokelma PO 10 gm DAILY [facility] Administration Impression 1. NOVA 2. hyperkalemia 3. obesity 4. DM 5. a-fib 6. HTN 7. chronic lower extremity ulcers 8. gastritis 9. sepsis 10. hyperglycemia 11. metabolic acidosis 12. peripheral vascular disease 13. acute resp failure 14. shock 15. cva Plan - pt with acute cva - repeat labs in am - will evaluate for HD tomorrow - will give a dose of lokelma today - cont pressors to map 65 - cont vent support - wound care - monitor bicarb - cont abx - discussed with icu team - prognosis guarded
--- NOTE | 2020-01-13 12:56 | PN ---
Physical Exam: SUBJECTIVE: Patient seen and examined at bedside. pt is intubated and sedated OBJECTIVE: Vital Signs Period Temp Pulse Resp BP Sys/Callahan Pulse Ox Last 24 Hr 98.1 F-99.2 F 68-111 12-22 90-155/56-93 94-99 GENERAL: The patient is intubated and sedated . Eyes: PERRL HEAD: Normal with no signs of trauma. LUNGS: vent sounds equal, clear to auscultation bilaterally, no accessory muscle use. HEART: Regular rate and rhythm, S1, S2 ABDOMEN: Soft, nondistended, normoactive bowel sounds, no guarding EXTREMITIES: b/l LE wounds Laboratory Last Values WBC 12.8 K/mm3 (4.0-10.0) H 01/13/20 05:00 RBC 3.18 M/mm3 (3.60-5.2) L 01/13/20 05:00 Hgb 9.0 GM/dL (10.7-15.3) L 01/13/20 05:00 Hct 27.3 % (32.4-45.2) L 01/13/20 05:00 MCV 85.8 fl (80-96) 01/13/20 05:00 MCH 28.2 pg (25.7-33.7) 01/13/20 05:00 MCHC 32.9 g/dl (32.0-36.0) 01/13/20 05:00 RDW 15.0 % (11.6-15.6) 01/13/20 05:00 Plt Count 81 K/MM3 (134-434) L D 01/13/20 05:00 MPV 9.3 fl (7.5-11.1) 01/13/20 05:00 Absolute Neuts (auto) 11.8 K/mm3 (1.5-8.0) H 01/13/20 05:00 Total Counted 100 01/11/20 02:00 Neutrophils % 92.1 % (42.8-82.8) H 01/13/20 05:00 Neutrophils % (Manual) 87.0 % (42.8-82.8) H 01/13/20 05:00 Band Neutrophils % 5.0 % 01/13/20 05:00 Lymphocytes % 2.0 % (8-40) L D 01/13/20 05:00 Lymphocytes % (Manual) 1.0 % (8-40) L D 01/13/20 05:00 Monocytes % 4.5 % (3.8-10.2) 01/13/20 05:00 Monocytes % (Manual) 4 % (3.8-10.2) 01/13/20 05:00 Eosinophils % 1.2 % (0-4.5) D 01/13/20 05:00 Eosinophils % (Manual) 3.0 % (0-4.5) D 01/13/20 05:00 Basophils % 0.2 % (0-2.0) 01/13/20 05:00 Basophils % (Manual) 0.0 % (0-2.0) 01/13/20 05:00 Myelocytes % (Man) 0 % (0-2) 01/13/20 05:00 Promyelocytes % (Man) 0 % (0-2) 01/13/20 05:00 Blast Cells % (Manual) 0 % (0-0) 01/13/20 05:00 Nucleated RBC % 0 % (0-0) 01/13/20 05:00 Metamyelocytes 0 % (0-2) 01/13/20 05:00 Hypochromia 0 01/13/20 05:00 Platelet Estimate Decreased 01/13/20 05:00 Platelet Comment No clotting detected 01/11/20 02:00 Platelet Comment No clumping noted 01/11/20 02:00 Polychromasia 0 01/13/20 05:00 Poikilocytosis 0 01/13/20 05:00 Anisocytosis 0 01/13/20 05:00 Microcytosis 0 01/13/20 05:00 Macrocytosis 0 01/13/20 05:00 PT with INR 18.30 SEC (9.7-13.0) H 01/11/20 10:00 INR 1.54 (0.83-1.09) H 01/11/20 10:00 PTT (Actin FS) 32.4 SECONDS (25.2-36.5) 01/11/20 10:00 Anticoagulation Therapy No Result Required. 01/13/20 08:15 Puncture Site Right radial 01/13/20 08:15 Patient Temperature No Result Required. 01/13/20 08:15 ABG pH 7.348 (7.350-7.450) L 01/13/20 08:15 ABG pCO2 36.40 mmHg (35-45) 01/13/20 08:15 ABG pO2 96.2 mmHg (80-100) 01/13/20 08:15 ABG HCO3 19.6 mmol/L (22-27) L 01/13/20 08:15 ABG O2 Sat (Measured) 97.1 mmHg (95-98) 01/13/20 08:15 ABG O2 Content No Result Required. 01/13/20 08:15 ABG Base Excess -5.5 mmol/L (-2-2) L 01/13/20 08:15 Kwesi Test Positive 01/13/20 08:15 Patient On Oxygen Yes 01/13/20 08:15 O2 Delivery Device V 01/13/20 08:15 Oxygen Flow Rate 60 01/13/20 08:15 Vent Mode Ac 01/13/20 08:15 Vent Rate 22 01/13/20 08:15 Mechanical Rate V 01/13/20 08:15 PEEP 5.0 cmH2O 01/13/20 08:15 Pressure Support Vent 500 01/13/20 08:15 Sodium 129 mmol/L (136-145) L 01/13/20 05:00 Potassium 4.9 mmol/L (3.5-5.1) 01/13/20 05:00 Chloride 94 mmol/L (98-107) L 01/13/20 05:00 Carbon Dioxide 21 mmol/L (21-32) 01/13/20 05:00 Anion Gap 15 MMOL/L (8-16) 01/13/20 05:00 BUN 58.8 mg/dL (7-18) H 01/13/20 05:00 Creatinine 3.7 mg/dL (0.55-1.3) H 01/13/20 05:00 Est GFR (CKD-EPI)AfAm 15.00 01/13/20 05:00 Est GFR (CKD-EPI)NonAf 12.94 01/13/20 05:00 POC Glucometer 134 UNITS (80-120) 01/13/20 12:31 Random Glucose 201 mg/dL (74-106) H 01/13/20 05:00 Lactic Acid 0.6 mmol/L (0.4-2.0) 01/10/20 11:18 Calcium 7.5 mg/dL (8.5-10.1) L 01/13/20 05:00 Phosphorus 8.1 mg/dL (2.5-4.9) H 01/13/20 05:00 Magnesium 1.8 mg/dL (1.8-2.4) 01/13/20 05:00 Total Bilirubin 0.5 mg/dL (0.2-1) 01/13/20 05:00 AST 35 U/L (15-37) 01/13/20 05:00 ALT 41 U/L (13-61) 01/13/20 05:00 Alkaline Phosphatase 133 U/L (45-117) H 01/13/20 05:00 Creatine Kinase 2014 U/L (26-192) H 01/11/20 10:00 Creatine Kinase Index 0.2 % (0.0-5.0) 01/11/20 10:00 CK-MB (CK-2) 5.3 ng/mL (0.5-3.6) H 01/11/20 10:00 Troponin I 0.02 ng/ml (0.00-0.05) 01/11/20 10:00 Total Protein 5.5 g/dl (6.4-8.2) L 01/13/20 05:00 Albumin 1.9 g/dl (3.4-5.0) L 01/13/20 05:00 Urine Color Dk yellow 01/10/20 16:00 Urine Appearance Turbid 01/10/20 16:00 Urine pH 5.0 (5.0-8.0) 01/10/20 16:00 Ur Specific [place] 1.027 (1.010-1.035) 01/10/20 16:00 Urine Protein 1+ (NEGATIVE) H 01/10/20 16:00 Urine Glucose (UA) Trace (NEGATIVE) 01/10/20 16:00 Urine Ketones Trace (NEGATIVE) H 01/10/20 16:00 Urine Blood Negative (NEGATIVE) 01/10/20 16:00 Urine Nitrite Negative (NEGATIVE) 01/10/20 16:00 Urine Bilirubin Negative (NEGATIVE) 01/10/20 16:00 Urine Urobilinogen 1.0 mg/dL (0.2-1.0) 01/10/20 16:00 Ur Leukocyte Esterase Negative (NEGATIVE) 01/10/20 16:00 Urine WBC (Auto) 76.2 /uL (0-25.8) 01/10/20 16:00 Urine RBC (Auto) 27 /uL (0-23.9) 01/10/20 16:00 Urine Casts (Auto) 57 /uL (0-3.1) 01/10/20 16:00 U Pathogenic Cast Auto Negative /lpf (NEGATIVE) 01/10/20 16:00 U Epithel Cells (Auto) >36 /uL (0-25.1) 01/10/20 16:00 Urine Bacteria (Auto) 259.1 /uL (0-1359) 01/10/20 16:00 Random Vancomycin 21.3 ug/ml (5-26) 01/12/20 05:00 COVID-19 (AZEEM) Not detected (Not Detected) 01/10/20 16:00 Hep Bs Antigen Negative (Negative) 01/10/20 17:15 Hep C Ab Diagnostic <0.1 s/co ratio (0.0-0.9) 01/10/20 17:15 Active Medications Generic Name Dose Route Start Last Admin Trade Name Freq PRN Reason Stop Dose Admin Atorvastatin Calcium 80 mg 01/12/20 22:00 01/12/20 21:02 Lipitor - PO 80 mg HS LANCE Administration Chlorhexidine Gluconate 1 applic 01/10/20 22:00 01/12/20 21:02 Hibiclens For Decolonization - TP 1 applic HS LANCE Administration Collagenase 1 applic 01/11/20 14:15 01/12/20 09:48 Santyl - TP 1 applic DAILY [facility]ANCE Administration Protocol Meropenem 1 gm/ Sodium 100 mls @ 200 mls/hr 01/11/20 10:00 01/13/20 09:23 Chloride IVPB 200 mls/hr BID LANCE Administration Midazolam HCl 100 mg in 100 mls @ 1 mls/hr 01/10/20 22:45 01/13/20 03:23 Midazolam 100mg/100ml-0.9%Nacl IVPB 2 mg/hr TITR LANCE 2 mls/hr Administration Protocol 1 MG/HR Norepinephrine Bitartrate 8,000 mcg in 500 mls @ 18.75 mls/hr 01/11/20 03:15 01/13/20 09:00 Levophed Bag IVPB 4 mcg/min TITR LANCE 15 mls/hr Titration Protocol 5 MCG/MIN Fentanyl 500 mcg in 100 mls @ 20 mls/hr 01/11/20 06:16 01/13/20 06:22 Sublimaze Ivpb IVPB Not Given TITR LANCE Protocol Propofol 1,000,000 mcg in 100 mls @ 7.92 mls/hr 01/11/20 08:30 01/13/20 09:22 Diprivan - IVPB 35 mcg/kg/min TITR LANCE 27.72 mls/hr Administration Protocol 10 MCG/KG/MIN Sodium Chloride 250 mls @ 3,000 mls/hr 01/12/20 08:46 Normal Saline - IV 01/13/20 08:46 PRN PRN Hypotension during Dialysis Insulin Aspart 1 vial 01/10/20 22:00 01/13/20 12:47 Novolog Vial Sliding Scale - SQ Not Given ACHS LANCE Protocol Mupirocin 1 applic 01/10/20 22:00 01/13/20 09:24 Bactroban Ointment (For Decolonization) - NS 01/15/20 21:59 1 applic BID LANCE Administration Pantoprazole Sodium 40 mg 01/13/20 10:00 01/13/20 09:23 Protonix Iv IVPUSH 40 mg DAILY [facility] Administration Sodium Zirconium Cyclosilicate 10 gm 01/11/20 10:00 01/13/20 09:23 Lokelma PO 10 gm DAILY [facility] Administration HeadCT: Allowing for partially obscuring artifact there appears to be interval development of a 4 x 3 cm nonspecific right parieto-occipital hypodense focus in comparison to a prior CT exam of 04/24/2019. This finding could be on the basis of acute or chronic infarction versus possible infectious or neoplastic disease. A component of this appearance could also conceivably be artifactual as discussed above. Correlation with follow-up contrast enhanced CT or MRI is suggested. Cspine CT : No definite fracture is identified. RPT HEAD CT:Moderate to large acute/subacute infarct in the right posterior frontal and parietal lobe with suggestion of interval petechial hemorrhagic transformation, as described above. Focal acute/subacute infarct in the left occipital lobe that was not grossly seen on the prior exam. ASSESSMENT/PLAN: 54 yo F w/ PMH CKD , afib (Eliquis), DM, HTN, chronic LE ulcers . admitted for acute toxic metabolic encephalopathy in icu for septic shock requiring pressor support. Neuro intubated and sedated on propofol CT head reviewed, rd above. acute ischemic stroke, now with 2 "tiny" petechial hemorrhage transformation will start atorvastatin neuro consulted maintain SBP <140 Cardio Afib hypotensive unresponsive to fluid resuscitation s/p 3L LR HTN - c/w levophed support to maintain MAP >65. will dc fludrocortisone and solu cortef - eliquis stopped -hold home HTN meds due to septic shock Pulmonary -intubated - monitor and maintain Spo2>90% -rpt ABG reviewed, CXR reviewed A/C: /04/30/70 GI -no acute issues Endo DM -hold home PO meds -c/w ISS + BGM ACHS - will add levemir 8 U HS . cont to monitor ID septic shock likely 2/2 cellulitis - c/w Meropenem d 2 - f/u cultures -Vascular surgeon consulted for LE ulcers with pending recommendations -ID , Dr. Jaylon keith appreciated Renal Renal failure CKD -Nephro consulted. s/p dialysis today -s/p hyperkalemia cocktail -Monitor I/O's FEN - NS @ 75 - monitor and replete electrolytes - NPO [facility] - LISA 01/10 Ppx -DVT: on eliquis cont icu level of care. meds confirmed with pharmacy ATTENDING PHYSICIAN STATEMENT I saw and evaluated the patient. I reviewed the resident's note and discussed the case with the resident. I agree with the resident's findings and plan as documented. SUBJECTIVE: OBJECTIVE: ASSESSMENT AND PLAN:
--- NOTE | 2020-01-13 12:57 | PN ---
Progress Note (short form) - Note Progress Note: pressors being tapered making more urine today ct head with CVA intubated and sedated Vital Signs Period Temp Pulse Resp BP Sys/Callahan Pulse Ox Last 24 Hr 98.1 F-99.2 F 68-111 12-22 90-155/56-93 94-99 cor-rrr lungs decreased bs at bases abd soft,nt ext dressings intack, oozing frome left arm wound as well cuevas CBC, BMP 01/13/20 05:00 01/13/20 05:00 Microbiology 01/10/20 11:10 Leg - Right Lower Gram Stain - Final 01/10/20 11:10 Leg - Right Lower Wound Culture - Final Klebsiella Pneumoniae Proteus Mirabilis Enterococcus Avium Lactose Fermenting Neg Bacilli 01/10/20 11:10 Blood - Peripheral Venous Blood Culture - Preliminary NO GROWTH OBTAINED AFTER 72 HOURS, INCUBATION TO CONTINUE FOR 2 DAYS. 01/10/20 11:10 Blood - Peripheral Venous Blood Culture - Preliminary NO GROWTH OBTAINED AFTER 72 HOURS, INCUBATION TO CONTINUE FOR 2 DAYS. 01/10/20 16:00 Urine - Urine - Catheterized Urine Culture - Final NO GROWTH OBTAINED a/p sepsis resp failure renal failure pen allergy CVA continue meropenem given pen allergy leukoocytosis resolving renal function improving pressors being tapered Problem List - Problems (1) Septic shock Code(s): A41.9 - SEPSIS, UNSPECIFIED ORGANISM; R65.21 - SEVERE SEPSIS WITH SEPTIC SHOCK (2) ARF (acute renal failure) Code(s): N17.9 - ACUTE KIDNEY FAILURE, UNSPECIFIED Qualifiers: Acute renal failure type: unspecified Qualified Code(s): N17.9 - Acute kidn ey failure, unspecified (3) Respiratory failure Code(s): J96.90 - RESPIRATORY FAILURE, UNSP, UNSP W HYPOXIA OR HYPERCAPNIA (4) Penicillin allergy Code(s): Z88.0 - ALLERGY STATUS TO PENICILLIN
[2020-01-13] MEDS: COLLAGENASE CLOSTRIDIUM HIST. 30 GRAMS TUBE TP SCH (14:00)
--- NOTE | 2020-01-13 14:12 | PN ---
Teaching Attending Note Name of Resident: Sophie Mclaughlin ATTENDING PHYSICIAN STATEMENT I saw and evaluated the patient. I reviewed the resident's note and discussed the case with the resident. I agree with the resident's findings and plan as documented. SUBJECTIVE: Patient seen and examined in the ICU. Remains intubated and sedated NE 5 mcq for hemodynamic support. CT : New ischemic CVA with puntacte areas of hemorrhage. OBJECTIVE: Intake & Output 01/10/20 01/11/20 01/12/20 01/13/20 23:59 23:59 23:59 23:59 Intake Total 1300 4592 6056 977 Output Total 1433 2084 8040 250 Balance -133 8 -1983 727 Weight 291 lb 0.163 oz 291 lb 307 lb 15.772 oz Last Vital Signs Temp Pulse Resp BP Pulse Ox 98.1 F 70 22 H 106/66 98 01/13/20 10:09 01/13/20 13:00 01/13/20 13:00 01/13/20 13:00 01/13/20 13:00 Active Medications Atorvastatin Calcium (Lipitor -) 80 mg PO HS LANCE Last Admin: 01/12/20 21:02 Dose: 80 mg Documented by: Chlorhexidine Gluconate (Hibiclens For Decolonization -) 1 applic TP HS LANCE Last Admin: 01/12/20 21:02 Dose: 1 applic Documented by: Collagenase (Santyl -) 1 applic TP DAILY [facility]; Protocol Last Admin: 01/12/20 09:48 Dose: 1 applic Documented by: Meropenem 1 gm/ Sodium (Chloride) 100 mls @ 200 mls/hr IVPB BID LANCE Last Admin: 01/13/20 09:23 Dose: 200 mls/hr Documented by: Midazolam HCl (Midazolam 100mg/100ml-0.9%Nacl) 100 mg in 100 mls @ 1 mls/hr IVPB TITR LANCE; Protocol Last Admin: 01/13/20 03:23 Dose: 2 mg/hr, 2 mls/hr Documented by: Norepinephrine Bitartrate (Levophed Bag) 8,000 mcg in 500 mls @ 18.75 mls/hr IVPB TITR LANCE; Protocol Last Titration: 01/13/20 09:00 Dose: 4 mcg/min, 15 mls/hr Documented by: Fentanyl (Sublimaze Ivpb) 500 mcg in 100 mls @ 20 mls/hr IVPB TITR LANCE; Protocol Last Admin: 01/13/20 06:22 Dose: Not Given Documented by: Propofol (Diprivan -) 1,000,000 mcg in 100 mls @ 7.92 mls/hr IVPB TITR LANCE; Protocol Last Admin: 01/13/20 09:22 Dose: 35 mcg/kg/min, 27.72 mls/hr Documented by: Sodium Chloride (Normal Saline -) 250 mls @ 3,000 mls/hr IV PRN PRN PRN Reason: Hypotension during Dialysis Stop: 01/13/20 08:46 Insulin Aspart (Novolog Vial Sliding Scale -) 1 vial SQ ACHS LANCE; Protocol Last Admin: 01/13/20 12:47 Dose: Not Given Documented by: Mupirocin (Bactroban Ointment (For Decolonization) -) 1 applic NS BID LANCE Stop: 01/15/20 21:59 Last Admin: 01/13/20 09:24 Dose: 1 applic Documented by: Pantoprazole Sodium (Protonix Iv) 40 mg IVPUSH DAILY LANCE Last Admin: 01/13/20 09:23 Dose: 40 mg Documented by: Sodium Zirconium Cyclosilicate (Lokelma) 10 gm PO DAILY [facility]ANCE Last Admin: 01/13/20 09:23 Dose: 10 gm Documented by: GENERAL: Intubated and sedated HEAD: Normal with no signs of trauma. 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
[2020-01-13] MEDS: AMINO ACIDS/PROTEIN HYDROLYS 30 ML LIQUID.PKT PO SCH (21:12)
[2020-01-13] MEDS: ATORVASTATIN CA 80 MG TABLET (FP) PO SCH (21:12)
[2020-01-13] MEDS: CHLORHEXIDINE GLUCONATE 4% CLEANSER FOR DECOLONIZATION TP SCH (21:13)
[2020-01-14] MEDS: MIDAZOLAM IN 0.9 % SOD.CHLORID 100 MG/100 ML PLAST..BAG IVPB SCH ×2 (01:51→22:57)
[2020-01-14] MEDS: PROPOFOL 1,000,000 MCG/100 ML VIAL IVPB SCH ×4 (01:52→14:18)
[2020-01-14] MEDS: FENTANYL IVPB 500 MCG/100 ML BAG IVPB SCH ×2 (02:30→06:21)
[2020-01-14] MEDS: AMINO ACIDS/PROTEIN HYDROLYS 30 ML LIQUID.PKT PO SCH ×3 (06:22→22:57)
[2020-01-14] MEDS: NOREPINEPHRINE BITARTRATE 8,000 MCG/500 ML BAG IVPB SCH (06:22)
[2020-01-14] MEDS: INSULIN SLIDING SCALE (NOVOLOG) 1 VIAL SQ SCH ×4 (06:27→22:55)
[2020-01-14 07:07] LABS: ALBUMIN 1.8 g/dl (3.4-5.0); BLOOD UREA NITROGEN 76.3 mg/dL (7-18); CALCIUM 7.6 mg/dL (8.5-10.1); CREATININE 4.1 mg/dL (0.55-1.3); MAGNESIUM 1.8 mg/dL (1.8-2.4); PHOSPHOROUS 8.7 mg/dL (2.5-4.9); POTASSIUM 3.5 mmol/L (3.5-5.1); TOT PROT 5.2 g/dl (6.4-8.2)
--- NOTE | 2020-01-14 07:12 | PN ---
Progress Note, Physician - Current Medication List Current Medications: Active Medications Amino Acids (Prosource No Carb Liquid Pkt) 30 ml PO TID [facility]ANCE Last Admin: 01/14/20 06:22 Dose: 30 ml Documented by: Atorvastatin Calcium (Lipitor -) 80 mg PO HS [facility] Last Admin: 01/13/20 21:12 Dose: 80 mg Documented by: Chlorhexidine Gluconate (Hibiclens For Decolonization -) 1 applic TP HS [facility] Last Admin: 01/13/20 21:13 Dose: 1 applic Documented by: Collagenase (Santyl -) 1 applic TP DAILY [facility]; Protocol Last Admin: 01/13/20 14:00 Dose: 1 applic Documented by: Meropenem 1 gm/ Sodium (Chloride) 100 mls @ 200 mls/hr IVPB BID [facility] Last Admin: 01/13/20 21:14 Dose: 200 mls/hr Documented by: Midazolam HCl (Midazolam 100mg/100ml-0.9%Nacl) 100 mg in 100 mls @ 1 mls/hr IVPB TITR [facility]; Protocol Last Admin: 01/14/20 01:51 Dose: Not Given Documented by: Norepinephrine Bitartrate (Levophed Bag) 8,000 mcg in 500 mls @ 18.75 mls/hr IVPB TITR [facility]; Protocol Last Admin: 01/14/20 06:22 Dose: 5 mcg/min, 18.75 mls/hr Documented by: Fentanyl (Sublimaze Ivpb) 500 mcg in 100 mls @ 20 mls/hr IVPB TITR [facility]; Protocol Last Admin: 01/14/20 06:21 Dose: Not Given Documented by: Propofol (Diprivan -) 1,000,000 mcg in 100 mls @ 7.92 mls/hr IVPB TITR [facility]; Protocol Last Admin: 01/14/20 02:30 Dose: 30 mcg/kg/min, 23.76 mls/hr Documented by: Sodium Chloride (Normal Saline -) 250 mls @ 3,000 mls/hr IV PRN PRN PRN Reason: Hypotension during Dialysis Stop: 01/13/20 08:46 Insulin Aspart (Novolog Vial Sliding Scale -) 1 vial SQ ACHS [facility]; Protocol Last Admin: 01/14/20 06:27 Dose: Not Given Documented by: Mupirocin (Bactroban Ointment (For Decolonization) -) 1 applic NS BID [facility] Stop: 01/15/20 21:59 Last Admin: 01/13/20 21:13 Dose: 1 applic Documented by: Pantoprazole Sodium (Protonix Iv) 40 mg IVPUSH DAILY [facility] Last Admin: 01/13/20 09:23 Dose: 40 mg Documented by: Sodium Zirconium Cyclosilicate (Lokelma) 10 gm PO DAILY [facility] Last Admin: 01/13/20 09:23 Dose: 10 gm Documented by: - Objective Vital Signs: Vital Signs Temperature 98.7 F 01/14/20 06:00 Pulse Rate 98 H 01/14/20 07:00 Respiratory Rate 22 H 01/14/20 07:00 Blood Pressure 111/64 01/14/20 07:00 O2 Sat by Pulse Oximetry (%) 100 01/14/20 07:00 Cardiovascular: Yes: S1, S2 Respiratory: Yes: Mechanically Ventilated Gastrointestinal: Yes: Normal Bowel Sounds, Soft Neurological: Yes: Unresponsive Labs: CBC, BMP 01/14/20 05:30 INR, PTT INR 1.54 (0.83-1.09) H 01/11/20 10:00 Problem List - Problems (1) Septic shock Assessment/Plan: IV ABX ID CONSULT CULTURES 01/10/20 11:10 Leg - Right Lower Gram Stain - Final 01/10/20 11:10 Leg - Right Lower Wound Culture - Final Klebsiella Pneumoniae Proteus Mirabilis Enterococcus Avium Lactose Fermenting Neg Bacilli 01/10/20 11:10 Blood - Peripheral Venous Blood Culture - Preliminary NO GROWTH OBTAINED AFTER 72 HOURS, INCUBATION TO CONTINUE FOR 2 DAYS. 01/10/20 11:10 Blood - Peripheral Venous Blood Culture - Preliminary NO GROWTH OBTAINED AFTER 72 HOURS, INCUBATION TO CONTINUE FOR 2 DAYS. 01/10/20 16:00 Urine - Urine - Catheterized Urine Culture - Final NO GROWTH OBTAINED Code(s): A41.9 - SEPSIS, UNSPECIFIED ORGANISM; R65.21 - SEVERE SEPSIS WITH SEPTIC SHOCK (2) Respiratory failure Assessment/Plan: VENT ICU CARE PULM CONSULT ABG Results ABG pH 7.348 (7.350-7.450) L 01/13/20 08:15 ABG HCO3 19.6 mmol/L (22-27) L 01/13/20 08:15 ABG O2 Sat (Measured) 97.1 mmHg (95-98) 01/13/20 08:15 ABG O2 Content No Result Required. 01/13/20 08:15 ABG Base Excess -5.5 mmol/L (-2-2) L 01/13/20 08:15 Code(s): J96.90 - RESPIRATORY FAILURE, UNSP, UNSP W HYPOXIA OR HYPERCAPNIA (3) Diabetic calf ulcer Assessment/Plan: SURGICAL CONSULT IV ABX Code(s): E11.622 - TYPE 2 DIABETES MELLITUS WITH OTHER SKIN ULCER; L97.209 - NON-PRESSURE CHRONIC ULCER OF UNSP CALF WITH UNSP SEVERITY (4) Cellulitis Assessment/Plan: IV ABX WOUND CARE Code(s): L03.90 - CELLULITIS, UNSPECIFIED Qualifiers: Site of cellulitis: unspecified site Qualified Code(s): L03.90 - Cellulitis, unspecified (5) NOVA (acute kidney injury) Assessment/Plan: high potasium and low na repeat now then assess renal on case ivf--per renal Abnormal Lab Results 01/13/20 01/13/20 01/14/20 05:00 08:15 05:30 RBC 3.14 L Hgb 8.8 L Hct 26.7 L Plt Count 25 L* D Neutrophils % (Manual) 87.0 H Lymphocytes % (Manual) 1.0 L D ABG pH 7.348 L ABG HCO3 19.6 L ABG Base Excess -5.5 L Sodium Chloride BUN Creatinine Random Glucose Calcium Phosphorus Alkaline Phosphatase Total Protein Albumin 01/14/20 05:30 RBC Hgb Hct Plt Count Neutrophils % (Manual) Lymphocytes % (Manual) ABG pH ABG HCO3 ABG Base Excess Sodium 128 L Chloride 93 L BUN 76.3 H Creatinine 4.1 H Random Glucose 159 H Calcium 7.6 L Phosphorus 8.7 H Alkaline Phosphatase 135 H Total Protein 5.2 L Albumin 1.8 L Code(s): N17.9 - ACUTE KIDNEY FAILURE, UNSPECIFIED (6) Acute metabolic encephalopathy Assessment/Plan: ct noted with lesion--unable to do mri neuro consult Code(s): G93.41 - METABOLIC ENCEPHALOPATHY (7) CVA (cerebral vascular accident) Assessment/Plan: ct noted--large with hemorrhage hold neuro on case Code(s): I63.9 - CEREBRAL INFARCTION, UNSPECIFIED
[2020-01-14 09:03] LABS: HEMATOCRIT 26.7 % (32.4-45.2); HEMOGLOBIN 8.8 GM/dL (10.7-15.3); MCHC 32.9 g/dl (32.0-36.0); MEAN CELL VOLUME 85.1 fl (80-96); MEAN PLT VOLUME 9.2 fl (7.5-11.1); RBC 3.14 M/mm3 (3.60-5.2); RDW 15.1 % (11.6-15.6); WHITE BLOOD COUNT 9.3 K/mm3 (4.0-10.0)
[2020-01-14] MEDS ORDERED: SODIUM CHLORIDE 100 ML IVPB ONE (09:12)
[2020-01-14] MEDS ORDERED: MEROPENEM 1 GM VIAL (RESTRICTED TO ID) IVPB ONE (09:12)
[2020-01-14 09:17] LABS: PLATELET COUNT 25 K/MM3 (134-434)
[2020-01-14] MEDS: MEROPENEM 1 GM in SODIUM CHLORIDE 100 ML IVPB SCH (09:29)
[2020-01-14] MEDS: MUPIROCIN 2% TOPICAL OINTMENT FOR DECOLONIZATION NS SCH ×2 (09:30→22:55)
[2020-01-14] MEDS: PANTOPRAZOLE SODIUM 40 MG VIAL IVPUSH SCH (09:30)
[2020-01-14] MEDS: SODIUM ZIRCONIUM CYCLOSILICATE (LOKELMA) 5 GM PACKET PO SCH (09:30)
[2020-01-14 10:12] LABS: ARTERIAL BLD GAS O2 SATURATION 96.2 mmHg (95-98); ARTERIAL BLOOD GAS BASE EXCESS -6.7 mmol/L (-2-2); ARTERIAL BLOOD GAS PO2 85.6 mmHg (80-100); ARTERIAL BLOOD GAS pH 7.355 (7.350-7.450)
[2020-01-14 10:19] LABS: ALLENS TEST POSITIVE; VENT MODE A/C
[2020-01-14 10:20] LABS: VENT RATE 28
[2020-01-14 11:50] LABS: INR 1.19 (0.83-1.09); PROTHROMBIN TIME (PATIENT) 14.1 SEC (9.7-13.0)
[2020-01-14 11:53] LABS: ACTIVATED PTT 27.6 SECONDS (25.2-36.5)
--- NOTE | 2020-01-14 12:09 | CON.CARD ---
Consult Consult Specialty:: Cardiology Referred by:: Arnoldo Reason for Consultation:: afib, CVA - History of Present Illness Chief Complaint: fall History of Present Illness: 54 year old female with a history of chronic AFIB on Eliquis, HTN, DM HLD, CKD, chronic bilateral leg ulcers, prior admissions for sepsis admitted after a fall found to be hypotensive, in NOVA on CKD, septic with shock, complicated by respiratory failure, thrombocytopenia. Now found with new acute CVA right posterior frontal and parietal lobe with patechial hemorrhage. Intubated and sedated on pressors. Echo 11/14/18: TDS ef 55-60 HeadCT: Allowing for partially obscuring artifact there appears to be interval development of a 4 x 3 cm nonspecific right parieto-occipital hypodense focus in comparison to a prior CT exam of 04/24/2019. This finding could be on the basis of acute or chronic infarction versus possible infectious or neoplastic disease. A component of this appearance could also conceivably be artifactual as discussed above. Correlation with follow-up contrast enhanced CT or MRI is suggested. Cspine CT : No definite fracture is identified. RPT HEAD CT:Moderate to large acute/subacute infarct in the right posterior frontal and parietal lobe with suggestion of interval petechial hemorrhagic transformation, as described above. Focal acute/subacute infarct in the left occipital lobe that was not grossly seen on the prior exam. - History Source History Provided By: Medical Record Limitations to Obtaining History: Intubated - Past Medical History Cardio/Vascular: Yes: AFIB, HTN Pulmonary: Yes: Asthma Gastrointestinal: Yes: Other (gallstones) Hepatobiliary: Yes: Cholelithiasis (passed without surgery), Other (fatty liver) Renal/: Yes: Renal Inusuff ...LMP: 01/10/20 ...: No Infectious Disease: Yes: Other (LE cellulitis) Psych: Yes: Bipolar Endocrine: Yes: Diabetes Mellitus Dermatology: Yes: Cellulitis (b/l LE with ulcerations) Additional Medical History: obesity - Alcohol/Substance Use Hx Alcohol Use: No History of Substance Use: reports: Prescription (narcotics) - Smoking History Smoking history: Former smoker Have you smoked in the past 12 months: No Aproximately how many cigarettes per day: 0 If you are a former smoker, when did you quit?: quit age 13 - Social History Usual Living Arrangement: With Spouse ADL: Independent 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 History of Recent Travel: No Home Medications - Allergies Allergies/Adverse Reactions: Allergies Allergy/AdvReac Type Severity Reaction Status Date / Time nut - unspecified Allergy Verified 01/10/20 10:59 Penicillins Allergy Verified 01/10/20 10:59 walnut Allergy Verified 01/10/20 10:59 caviar Allergy Uncoded 01/10/20 10:59 - Home Medications Home Medications: Ambulatory Orders Apixaban [Eliquis -] 5 mg PO BID #60 tablet 11/05/19 Ferrous Sulfate [Iron] 325 mg PO BID #60 tablet 11/05/19 Folic Acid 1 mg PO DAILY #30 tablet 11/05/19 Furosemide [Lasix -] 20 mg PO DAILY #30 tablet 11/05/19 Gabapentin [Neurontin -] 600 mg PO TID #180 capsule 11/05/19 traMADol HCL [Ultram -] 50 mg PO Q8H 7 Days #21 tablet MDD 3 11/06/19 Enalapril Maleate [Vasotec -] 5 mg PO DAILY 01/12/20 Insulin Glargine,Hum.rec.anlog [Lantus Solostar] 15 unit SQ HS 01/12/20 Metoprolol Succinate [Toprol Xl] 25 mg PO DAILY 01/12/20 Oxycodone HCl/Acetaminophen [Oxycodon-Acetaminophen 7.5-325] 1 tab PO DAILY 01/12/20 Potassium Chloride 10 meq PO DAILY 01/12/20 Family Medical History Family History: Denies Vital Signs: Vital Signs Temperature 99.1 F 01/14/20 10:00 Pulse Rate 102 H 01/14/20 10:00 Respiratory Rate 22 H 01/14/20 10:00 Blood Pressure 101/52 L 01/14/20 10:00 O2 Sat by Pulse Oximetry (%) 100 01/14/20 10:00 Constitutional: Yes: Other (Intubated and sedated) HENT: Yes: Atraumatic, Normocephalic Neck: Yes: Trachea Midline Respiratory: Yes: Mechanically Ventilated Gastrointestinal: Yes: Normal Bowel Sounds, Soft Cardiovascular: Yes: Pulse Irregular JVD: Yes Carotid Bruit: No PMI: Non-Displaced Heart Sounds: Yes: S1, S2 Edema: Yes Peripheral Pulses WNL: Yes - Other Data Labs, Other Data: CBC, BMP 01/14/20 05:30 08/20/20 05:30 INR, PTT INR 1.19 (0.83-1.09) H 01/14/20 10:30 Imaging - Results Chest X-ray: Report Reviewed EKG: Report Reviewed (afib nssttw changes) Assessment/Plan 54 year old female with a history of chronic AFIB on Eliquis, HTN, DM HLD, CKD, chronic bilateral leg ulcers, prior admissions for sepsis admitted after a fall found to be hypotensive, in NOVA on CKD, septic with shock, complicated by respiratory failure, thrombocytopenia. Now found with new acute CVA right posterior frontal and parietal lobe with patechial hemorrhage. Intubated and sedated on pressors. Echo 11/14/18: TDS ef 55-60 HeadCT: Allowing for partially obscuring artifact there appears to be interval development of a 4 x 3 cm nonspecific right parieto-occipital hypodense focus in comparison to a prior CT exam of 04/24/2019. This finding could be on the basis of acute or chronic infarction versus possible infectious or neoplastic disease. A component of this appearance could also conceivably be artifactual as discuss ed above. Correlation with follow-up contrast enhanced CT or MRI is suggested. Cspine CT : No definite fracture is identified. RPT HEAD CT:Moderate to large acute/subacute infarct in the right posterior frontal and parietal lobe with suggestion of interval petechial hemorrhagic transformation, as described above. Focal acute/subacute infarct in the left occipital lobe that was not grossly seen on the prior exam. IMP: -acute CVA, chronic atrial fibrillation, while on low dose eliquis. Possibly embolic or due to hypotension/hypopefusion. -Likely source is leg ulcers. No bacteremia -follow cultures, Abx per ICU and ID. -hold eliquis for now, resume when CT scan confirms stable from hemorrhagic point. Small punctate foci are not a lifelong contraindication, would probably wait at least 14 days off of AC for now. -continue vent and pressor support per ICU team. -HD per renal. -thrombocytopenia pompa per heme. -echo -prognosis is guarded. -will follow with you.
--- NOTE | 2020-01-14 13:04 | CONSULT ---
Consultation: REQUESTING PROVIDER: Dr. Mclaughlin CONSULT REQUEST: We have been asked to medically evaluate this patient for thrombocytopenia. HISTORY OF PRESENT ILLNESS: Patient is a 54 year old female with past medical history of CKD, Afib (on eliquis), DM, chronic LE ulcers, was brought in to the ED after a fall and was found to be in acute respiratory failure and septic shock. Patient is intubated and sedated, history obtained from patient's chart. On admission, patient was found to be hypotensive unresponsive to fluids, and was started on vasopressors. She was also noted to have AMS and was subsequently intubated for airway protection. Patient was also in acute renal failure and had urgent dialysis. She was started on Meropenem for sepsis. Two days ago, head CT was done which revealed hypodense region likely acute infarct. Neurology was consulted and recommended to hold eliquis and repeat head CT as there is a risk of hemorrhagic conversion. Repeat head CT revealed new ischemic changes with petechial hemorrhages. We were consulted for further evaluation of thrombocytopenia. PMHx:CKD, Afib (on eliquis), DM, chronic LE ulcers PSHx: unable to obtain Allergies: penicillins REVIEW OF SYSTEMS: unable to obtain as patient intubated and sedated. PHYSICAL EXAMINATION Vital Signs - 24 hr 01/13/20 01/13/20 01/13/20 13:00 14:00 15:00 Temperature 98.0 F Pulse Rate 70 68 64 Respiratory 22 H 22 H 22 H Rate Blood Pressure 106/66 97/70 95/73 O2 Sat by Pulse 98 98 Oximetry (%) 01/13/20 01/13/20 01/13/20 16:00 16:36 17:00 Temperature Pulse Rate 67 84 Respiratory 22 H 22 H 22 H Rate Blood Pressure 99/65 100/67 O2 Sat by Pulse 98 98 98 Oximetry (%) 01/13/20 01/13/20 01/13/20 18:00 19:00 19:49 Temperature 98.0 F Pulse Rate 74 75 Respiratory 22 H 22 H 22 H Rate Blood Pressure 104/76 112/63 O2 Sat by Pulse 98 98 95 Oximetry (%) 01/13/20 01/13/20 01/13/20 20:00 20:12 21:00 Temperature Pulse Rate 89 87 Respiratory 22 H 22 H 22 H Rate Blood Pressure 102/61 98/62 O2 Sat by Pulse 97 96 99 Oximetry (%) 01/13/20 01/13/20 01/14/20 22:00 23:00 00:00 Temperature 98.8 F Pulse Rate 106 H 85 90 Respiratory 22 H 22 H 22 H Rate Blood Pressure 114/64 105/61 104/64 O2 Sat by Pulse 100 99 99 Oximetry (%) 01/14/20 01/14/20 01/14/20 00:05 01:00 02:00 Temperature 98.9 F Pulse Rate 87 77 Respiratory 22 H 22 H 22 H Rate Blood Pressure 104/61 101/62 O2 Sat by Pulse 99 99 Oximetry (%) 01/14/20 01/14/20 01/14/20 03:00 04:00 04:25 Temperature Pulse Rate 76 73 Respiratory 22 H 22 H 22 H Rate Blood Pressure 102/56 L 108/62 O2 Sat by Pulse 100 100 98 Oximetry (%) 01/14/20 01/14/20 01/14/20 05:00 06:00 07:00 Temperature 98.7 F Pulse Rate 81 100 H 98 H Respiratory 22 H 22 H 22 H Rate Blood Pressure 93/60 103/62 111/64 O2 Sat by Pulse 100 100 100 Oximetry (%) 01/14/20 01/14/20 01/14/20 08:00 08:50 09:00 Temperature Pulse Rate 98 H 89 Respiratory 22 H 22 H 22 H Rate Blood Pressure 105/60 107/53 L O2 Sat by Pulse 100 98 Oximetry (%) 01/14/20 10:00 Temperature 99.1 F Pulse Rate 102 H Respiratory 22 H Rate Blood Pressure 101/52 L O2 Sat by Pulse 100 Oximetry (%) GENERAL: intubated and sedated EARS, NOSE, THROAT: Dry mucous membranes. ET tube in place NECK: supple LUNGS: vented breath sounds, coarse bilaterally HEART: Regular rate and rhythm, normal S1 and S2 ABDOMEN: Soft, does not grimace on palpation, not distended, normoactive bowel sounds LOWER EXTREMITIES: 2+ pulses, warm, well-perfused. No peripheral edema. Bandage b/l LE c/d/i SKIN: Warm, dry, normal turgor Laboratory Results - last 24 hr 01/13/20 01/13/20 01/14/20 16:57 21:11 05:30 WBC 9.3 RBC 3.14 L Hgb 8.8 L Hct 26.7 L MCV 85.1 MCH 28.0 MCHC 32.9 RDW 15.1 Plt Count 25 L* D MPV 9.2 PT with INR INR PTT (Actin FS) Anticoagulation Therapy Puncture Site Patient Temperature ABG pH ABG pCO2 ABG pO2 ABG HCO3 ABG O2 Sat (Measured) ABG O2 Content ABG Base Excess Kwesi Test Patient On Oxygen O2 Delivery Device Oxygen Flow Rate Vent Mode Vent Rate Mechanical Rate PEEP Pressure Support Vent Sodium Potassium Chloride Carbon Dioxide Anion Gap BUN Creatinine Est GFR (CKD-EPI)AfAm Est GFR (CKD-EPI)NonAf POC Glucometer 121 120 Random Glucose Calcium Phosphorus Magnesium Iron TIBC Iron Saturation Unsaturated IBC Ferritin Total Bilirubin AST ALT Alkaline Phosphatase LD Total Total Protein Albumin 01/14/20 01/14/20 01/14/20 05:30 06:23 09:52 WBC RBC Hgb Hct MCV MCH MCHC RDW Plt Count MPV PT with INR INR PTT (Actin FS) Anticoagulation Therapy No Result Required. Puncture Site Right radial Patient Temperature No Result Required. ABG pH 7.355 ABG pCO2 32.90 L ABG pO2 85.6 ABG HCO3 18.0 L ABG O2 Sat (Measured) 96.2 ABG O2 Content No Result Required. ABG Base Excess -6.7 L Kwesi Test Positive Patient On Oxygen Yes O2 Delivery Device Vent Oxygen Flow Rate 50% Vent Mode A/c Vent Rate 28 Mechanical Rate Yes PEEP 5.0 Pressure Support Vent 400 Sodium 128 L Potassium 3.5 Chloride 93 L Carbon Dioxide 21 Anion Gap 13 BUN 76.3 H Creatinine 4.1 H Est GFR (CKD-EPI)AfAm 13.25 Est GFR (CKD-EPI)NonAf 11.43 POC Glucometer 143 Random Glucose 159 H Calcium 7.6 L Phosphorus 8.7 H Magnesium 1.8 Iron 30 L TIBC 215 L Iron Saturation 13 L Unsaturated IBC 185 L Ferritin 244.2 Total Bilirubin 1.0 AST 34 ALT 38 Alkaline Phosphatase 135 H LD Total 160 Total Protein 5.2 L Albumin 1.8 L 01/14/20 01/14/20 10:30 11:35 WBC RBC Hgb Hct MCV MCH MCHC RDW Plt Count MPV PT with INR 14.10 H INR 1.19 H PTT (Actin FS) 27.6 Anticoagulation Therapy Puncture Site Patient Temperature ABG pH ABG pCO2 ABG pO2 ABG HCO3 ABG O2 Sat (Measured) ABG O2 Content ABG Base Excess Kwesi Test Patient On Oxygen O2 Delivery Device Oxygen Flow Rate Vent Mode Vent Rate Mechanical Rate PEEP Pressure Support Vent Sodium Potassium Chloride Carbon Dioxide Anion Gap BUN Creatinine Est GFR (CKD-EPI)AfAm Est GFR (CKD-EPI)NonAf POC Glucometer 144 Random Glucose Calcium Phosphorus Magnesium Iron TIBC Iron Saturation Unsaturated IBC Ferritin Total Bilirubin AST ALT Alkaline Phosphatase LD Total Total Protein Albumin Active Medications Generic Name Dose Route Start Last Admin Trade Name Freq PRN Reason Stop Dose Admin Amino Acids 30 ml 01/13/20 22:00 01/14/20 06:22 Prosource No Carb Liquid Pkt PO 30 ml TID [facility]ANCE Administration Atorvastatin Calcium 80 mg 01/12/20 22:00 01/13/20 21:12 Lipitor - PO 80 mg HS LANCE Administration Chlorhexidine Gluconate 1 applic 01/10/20 22:00 01/13/20 21:13 Hibiclens For Decolonization - TP 1 applic HS LANCE Administration Collagenase 1 applic 01/11/20 14:15 01/13/20 14:00 Santyl - TP 1 applic DAILY [facility] Administration Protocol Meropenem 1 gm/ Sodium 100 mls @ 200 mls/hr 01/11/20 10:00 01/14/20 09:29 Chloride IVPB 200 mls/hr BID LANCE Administration Midazolam HCl 100 mg in 100 mls @ 1 mls/hr 01/10/20 22:45 01/14/20 01:51 Midazolam 100mg/100ml-0.9%Nacl IVPB Not Given TITR [facility] Protocol 1 MG/HR Norepinephrine Bitartrate 8,000 mcg in 500 mls @ 18.75 mls/hr 01/11/20 03:15 01/14/20 06:22 Levophed Bag IVPB 5 mcg/min TITR LANCE 18.75 mls/hr Administration Protocol 5 MCG/MIN Fentanyl 500 mcg in 100 mls @ 20 mls/hr 01/11/20 06:16 01/14/20 06:21 Sublimaze Ivpb IVPB Not Given TITR [facility] Protocol Propofol 1,000,000 mcg in 100 mls @ 7.92 mls/hr 01/11/20 08:30 01/14/20 09:30 Diprivan - IVPB 30 mcg/kg/min TITR LANCE 23.76 mls/hr Administration Protocol 10 MCG/KG/MIN Sodium Chloride 250 mls @ 3,000 mls/hr 01/12/20 08:46 Normal Saline - IV 01/13/20 08:46 PRN PRN Hypotension during Dialysis Insulin Aspart 1 vial 01/10/20 22:00 01/14/20 11:37 Novolog Vial Sliding Scale - SQ Not Given ACHS [facility] Protocol Mupirocin 1 applic 01/10/20 22:00 01/14/20 09:30 Bactroban Ointment (For Decolonization) - NS 01/15/20 21:59 1 applic BID LANCE Administration Pantoprazole Sodium 40 mg 01/13/20 10:00 01/14/20 09:30 Protonix Iv IVPUSH 40 mg DAILY [facility] Administration Polyethylene Glycol 17 gm 01/14/20 11:12 Miralax (For Daily Use) - PO 01/14/20 11:13 ONCE ONE Sodium Zirconium Cyclosilicate 10 gm 01/11/20 10:00 01/14/20 09:30 Lokelma PO 10 gm DAILY LANCE Administration ASSESSMENT/PLAN: Patient is a 54 year old female with past medical history of CKD, Afib (on eliquis), DM, chronic LE ulcers, was brought in to the ED after a fall and was found to be in acute respiratory failure and septic shock. We were consulted for further evaluation of thrombocytopenia. #Thrombocytopenia -platelet ct dropped to 25 today -likely consumptive 2/2 sepsis, unlikely hemolysis -last dose of eliquis 818 AM, may take up to 3-5days to completely clear -haptoglobin, LDH, direct coomb's, coags pending -give 1u platelet and repeat cbc -neurology, Dr. Blevins, made aware. appreciate recs. Dispo: We will continue to follow the patient. Thank you for this consultative opportunity. Visit type - Emergency Visit Emergency Visit: Yes ED Registration Date: 01/10/20 Care time: The patient presented to the Emergency Department on the above date and was hospitalized for further evaluation of their emergent condition. - New Patient This patient is new to me today: No - Critical Care Critical Care patient: No ATTENDING PHYSICIAN STATEMENT I saw and evaluated the patient. I reviewed the resident's note and discussed the case with the resident. I agree with the resident's findings and plan as documented. SUBJECTIVE: OBJECTIVE: ASSESSMENT AND PLAN:
[2020-01-14] MEDS ORDERED: POLYETHYLENE GLYCOL 3350 119 GM BTL PO ONE (13:30)
[2020-01-14] MEDS: COLLAGENASE CLOSTRIDIUM HIST. 30 GRAMS TUBE TP SCH (13:51)
--- NOTE | 2020-01-14 14:45 | PN ---
Progress Note (short form) - Note Progress Note: pressors being tapered fi02 now 505 Vital Signs Period Temp Pulse Resp BP Sys/Callahan Pulse Ox Last 24 Hr 98.0 F-99.1 F 64-121 22-30 93-114/52-76 95-100 cor-rrr lungs decreased bs at bases abd soft nt ext dressing intact CBC, BMP 01/14/20 05:30 01/14/20 05:30 a/p thrombocytopenia=for platelet transfusion sepsis-resolving resp failure renal failure-improved, making urine now pen allergy CVA- f/u with neurology continue meropenem given pen allergy -day #4 Problem List - Problems (1) Septic shock Code(s): A41.9 - SEPSIS, UNSPECIFIED ORGANISM; R65.21 - SEVERE SEPSIS WITH SEPTIC SHOCK (2) ARF (acute renal failure) Code(s): N17.9 - ACUTE KIDNEY FAILURE, UNSPECIFIED Qualifiers: Acute renal failure type: unspecified Qualified Code(s): N17.9 - Acute kidney failure, unspecified (3) Respiratory failure Code(s): J96.90 - RESPIRATORY FAILURE, UNSP, UNSP W HYPOXIA OR HYPERCAPNIA (4) Penicillin allergy Code(s): Z88.0 - ALLERGY STATUS TO PENICILLIN
--- NOTE | 2020-01-14 16:17 | PN ---
Teaching Attending Note Name of Resident: Sophie Mclaughlin ATTENDING PHYSICIAN STATEMENT I saw and evaluated the patient. I reviewed the resident's note and discussed the case with the resident. I agree with the resident's findings and plan as documented. SUBJECTIVE: SUBJECTIVE: Patient seen and examined in the ICU. Remains intubated and sedated NE for hemodynamic support. OBJECTIVE: Intake & Output 01/11/20 01/12/20 01/13/20 01/14/20 23:59 23:59 23:59 23:59 Intake Total 4592 6056 2119 959 Output Total 2084 8040 550 1450 Balance 2507 9123 -563 Weight 291 lb 307 lb 15.772 oz 309 lb 1.409 oz Last Vital Signs Temp Pulse Resp BP Pulse Ox 115 F H 115 H 22 H 112/69 99 01/14/20 15:06 01/14/20 15:06 01/14/20 15:06 01/14/20 15:06 01/14/20 14:00 Active Medications Amino Acids (Prosource No Carb Liquid Pkt) 30 ml PO TID [facility] Last Admin: 01/14/20 13:54 Dose: 30 ml Documented by: Atorvastatin Calcium (Lipitor -) 80 mg PO HS [facility] Last Admin: 01/13/20 21:12 Dose: 80 mg Documented by: Chlorhexidine Gluconate (Hibiclens For Decolonization -) 1 applic TP HS [facility] Last Admin: 01/13/20 21:13 Dose: 1 applic Documented by: Collagenase (Santyl -) 1 applic TP DAILY [facility]; Protocol Last Admin: 01/14/20 13:51 Dose: 1 applic Documented by: Meropenem 1 gm/ Sodium (Chloride) 100 mls @ 200 mls/hr IVPB BID [facility] Last Admin: 01/14/20 09:29 Dose: 200 mls/hr Documented by: Midazolam HCl (Midazolam 100mg/100ml-0.9%Nacl) 100 mg in 100 mls @ 1 mls/hr IVPB TITR [facility]; Protocol Last Infusion: 01/14/20 14:00 Dose: 3 mg/hr, 3 mls/hr Documented by: Norepinephrine Bitartrate (Levophed Bag) 8,000 mcg in 500 mls @ 18.75 mls/hr IVPB TITR [facility]; Protocol Last Admin: 01/14/20 06:22 Dose: 5 mcg/min, 18.75 mls/hr Documented by: Fentanyl (Sublimaze Ivpb) 500 mcg in 100 mls @ 20 mls/hr IVPB TITR [facility]; Protocol Last Titration: 01/14/20 14:18 Dose: 75 mcg/hr, 15 mls/hr Documented by: Propofol (Diprivan -) 1,000,000 mcg in 100 mls @ 7.92 mls/hr IVPB TITR [facility]; Protocol Last Admin: 01/14/20 14:18 Dose: 30 mcg/kg/min, 23.76 mls/hr Documented by: Sodium Chloride (Normal Saline -) 250 mls @ 3,000 mls/hr IV PRN PRN PRN Reason: Hypotension during Dialysis Stop: 01/13/20 08:46 Insulin Aspart (Novolog Vial Sliding Scale -) 1 vial SQ ACHS [facility]; Protocol Last Admin: 01/14/20 11:37 Dose: Not Given Documented by: Mupirocin (Bactroban Ointment (For Decolonization) -) 1 applic NS BID [facility] Stop: 01/15/20 21:59 Last Admin: 01/14/20 09:30 Dose: 1 applic Documented by: Pantoprazole Sodium (Protonix Iv) 40 mg IVPUSH DAILY [facility] Last Admin: 01/14/20 09:30 Dose: 40 mg Documented by: Sodium Zirconium Cyclosilicate (Lokelma) 10 gm PO DAILY [facility] Last Admin: 01/14/20 09:30 Dose: 10 gm Documented by: GENERAL: Intubated and sedated HEAD: Normal with no signs of trauma. LUNGS: vented, diminished throughout, no wheezes HEART: Regular rate and rhythm, S1, S2 + systolic murmur ABDOMEN: Soft, obese, nondistended, normoactive bowel sounds, no guarding EXTREMITIES: b/l LE wounds, open wounds throughout both legs , w/ drainage Laboratory Results - last 24 hr 01/13/20 01/13/20 01/14/20 16:57 21:11 05:30 WBC 9.3 RBC 3.14 L Hgb 8.8 L Hct 26.7 L MCV 85.1 MCH 28.0 MCHC 32.9 RDW 15.1 Plt Count 25 L* D MPV 9.2 PT with INR INR PTT (Actin FS) Anticoagulation Therapy Puncture Site Patient Temperature ABG pH ABG pCO2 ABG pO2 ABG HCO3 ABG O2 Sat (Measured) ABG O2 Content ABG Base Excess Kwesi Test Patient On Oxygen O2 Delivery Device Oxygen Flow Rate Vent Mode Vent Rate Mechanical Rate PEEP Pressure Support Vent Sodium Potassium Chloride Carbon Dioxide Anion Gap BUN Creatinine Est GFR (CKD-EPI)AfAm Est GFR (CKD-EPI)NonAf POC Glucometer 121 120 Random Glucose Calcium Phosphorus Magnesium Iron TIBC Iron Saturation Unsaturated IBC Ferritin Total Bilirubin AST ALT Alkaline Phosphatase LD Total Total Protein Albumin Blood Type Antibody Screen 01/14/20 01/14/20 01/14/20 05:30 06:23 09:52 WBC RBC Hgb Hct MCV MCH MCHC RDW Plt Count MPV PT with INR INR PTT (Actin FS) Anticoagulation Therapy No Result Required. Puncture Site Right radial Patient Temperature No Result Required. ABG pH 7.355 ABG pCO2 32.90 L ABG pO2 85.6 ABG HCO3 18.0 L ABG O2 Sat (Measured) 96.2 ABG O2 Content No Result Required. ABG Base Excess -6.7 L Kwesi Test Positive Patient On Oxygen Yes O2 Delivery Device Vent Oxygen Flow Rate 50% Vent Mode A/c Vent Rate 28 Mechanical Rate Yes PEEP 5.0 Pressure Support Vent 400 Sodium 128 L Potassium 3.5 Chloride 93 L Carbon Dioxide 21 Anion Gap 13 BUN 76.3 H Creatinine 4.1 H Est GFR (CKD-EPI)AfAm 13.25 Est GFR (CKD-EPI)NonAf 11.43 POC Glucometer 143 Random Glucose 159 H Calcium 7.6 L Phosphorus 8.7 H Magnesium 1.8 Iron 30 L TIBC 215 L Iron Saturation 13 L Unsaturated IBC 185 L Ferritin 244.2 Total Bilirubin 1.0 AST 34 ALT 38 Alkaline Phosphatase 135 H LD Total 160 Total Protein 5.2 L Albumin 1.8 L Blood Type Antibody Screen 01/14/20 01/14/20 01/14/20 10:30 11:35 12:30 WBC RBC Hgb Hct MCV MCH MCHC RDW Plt Count MPV PT with INR 14.10 H INR 1.19 H PTT (Actin FS) 27.6 Anticoagulation Therapy Puncture Site Patient Temperature ABG pH ABG pCO2 ABG pO2 ABG HCO3 ABG O2 Sat (Measured) ABG O2 Content ABG Base Excess Kwesi Test Patient On Oxygen O2 Delivery Device Oxygen Flow Rate Vent Mode Vent Rate Mechanical Rate PEEP Pressure Support Vent Sodium Potassium Chloride Carbon Dioxide Anion Gap BUN Creatinine Est GFR (CKD-EPI)AfAm Est GFR (CKD-EPI)NonAf POC Glucometer 144 Random Glucose Calcium Phosphorus Magnesium Iron TIBC Iron Saturation Unsaturated IBC Ferritin Total Bilirubin AST ALT Alkaline Phosphatase LD Total Total Protein Albumin Blood Type A POSITIVE Antibody Screen Negative ASSESSMENT/PLAN: Acute Respiratory Failure Septic Shock likely due to chronic LE wounds ARF CKD AFib on Eliquis DM HTN Chronic LE ulcers Likely OSAS / OHS Morbid Obesity AC Mode of vent Pressors to maintain MAP > 65 Strict I & O ABX per ID Follow final cultures Hold AC HD per Renal Glycemic control GI prophylaxis Requires ICU monitoring Dr Andre Critical care time spent in reviewing chart, evaluating patient and formulating plan - 36 minutes.
--- NOTE | 2020-01-14 16:49 | ECHO ---
Name: KANDIS SANA Exam:Adult Echocardiogram Study Date: 01/14/2020 03:46 PM Age: 54 yrs Height: 65 in Weight: 309 lb BSA: 2.4 m2 MMode/2D Measurements & Calculations RVDd: 3.1 cm Ao root diam: 2.9 cm IVSd: 1.1 cm LA dimension: 4.4 cm LVIDd: 5.8 cm ACS: 1.8 cm LVIDs: 4.0 cm LVPWd: 1.1 cm EDV(Teich): 164.0 ml LVOT diam: 2.0 cm ESV(Teich): 69.3 ml LAV (MOD-bp): 80.0 ml TAPSE: 1.7 cm RV S Johnny: 13.5 cm/sec Doppler Measurements & Calculations MV E max johnny: 90.8 cm/sec Ao V2 max: 137.1 cm/sec MV A max johnny: 51.3 cm/sec Ao max P.5 mmHg MV E/A: 1.8 Ao V2 mean: 94.2 cm/sec MV dec time: 0.14 sec Ao mean P.0 mmHg Ao V2 VTI: 18.2 cm EFRAIN(I,D): 2.8 cm2 EFRAIN(V,D): 2.6 cm2 LV V1 max P.5 mmHg SV(LVOT): 50.6 ml LV V1 mean P.4 mmHg LV V1 max: 117.1 cm/sec LV V1 mean: 70.4 cm/sec LV V1 VTI: 16.6 cm TR max johnny: 283.4 cm/sec PA V2 max: 104.5 cm/sec TR max P.3 mmHg PA max P.4 mmHg PA acc slope: 908.6 cm/sec2 PA acc time: 0.10 sec Med Peak E' Johnny: 8.1 cm/sec PA pr(Accel): 36.2 mmHg Med E/e': 11.2 Lat Peak E' Johnny: 18.6 cm/sec Lat E/e': 4.9 Pulm Sys Johnny: 63.2 cm/sec Pulm Callahan Johnny: 32.5 cm/sec Pulm S/D: 1.9 Tech Comments TDS due to morbid obesity. Patient intubated, scanned in supine position. Procedure A complete two-dimensional transthoracic echocardiogram was performed (2D, M-mode, Doppler and color flow Doppler). Left Ventricle The left ventricular size, thickness and function are normal. Ejection Fraction = 60-65%. The left ve ntricular wall motion is normal. Right Ventricle The right ventricle is normal in size and function. Atria Normal left and right atrial size and function. Mitral Valve There is no mitral regurgitation noted. Tricuspid Valve There is mild tricuspid regurgitation. Right ventricular systolic pressure is elevated at 30-40mmHg. Aortic Valve No hemodynamically significant valvular aortic stenosis. No aortic regurgitation is present. Pulmonic Valve There is no pulmonic valvular regurgitation. Great Vessels The aortic root is normal size. Pericardium/Pleura There is no pericardial effusion. Interpretation Summary The left ventricular size, thickness and function are normal The right ventricle is normal in size and function. There is mild tricuspid regurgitation. Right ventricular systolic pressure is elevated at 30-40mmHg. MD Mark Hamilton 01/14/2020 04:48 PM
--- NOTE | 2020-01-14 17:04 | PN ---
Progress Note, Physician History of Present Illness: Pt seen and examined at bedside. SHe remains in the ICU. She remains intubated. - Current Medication List Current Medications: Active Medications Amino Acids (Prosource No Carb Liquid Pkt) 30 ml PO TID [facility] Last Admin: 01/14/20 13:54 Dose: 30 ml Documented by: Atorvastatin Calcium (Lipitor -) 80 mg PO HS [facility] Last Admin: 01/13/20 21:12 Dose: 80 mg Documented by: Chlorhexidine Gluconate (Hibiclens For Decolonization -) 1 applic TP HS [facility] Last Admin: 01/13/20 21:13 Dose: 1 applic Documented by: Collagenase (Santyl -) 1 applic TP DAILY [facility]; Protocol Last Admin: 01/14/20 13:51 Dose: 1 applic Documented by: Meropenem 1 gm/ Sodium (Chloride) 100 mls @ 200 mls/hr IVPB BID [facility] Last Admin: 01/14/20 09:29 Dose: 200 mls/hr Documented by: Midazolam HCl (Midazolam 100mg/100ml-0.9%Nacl) 100 mg in 100 mls @ 1 mls/hr IVPB TITR [facility]; Protocol Last Infusion: 01/14/20 14:00 Dose: 3 mg/hr, 3 mls/hr Documented by: Norepinephrine Bitartrate (Levophed Bag) 8,000 mcg in 500 mls @ 18.75 mls/hr IVPB TITR [facility]; Protocol Last Admin: 01/14/20 06:22 Dose: 5 mcg/min, 18.75 mls/hr Documented by: Fentanyl (Sublimaze Ivpb) 500 mcg in 100 mls @ 20 mls/hr IVPB TITR [facility]; Protocol Last Titration: 01/14/20 14:18 Dose: 75 mcg/hr, 15 mls/hr Documented by: Propofol (Diprivan -) 1,000,000 mcg in 100 mls @ 7.92 mls/hr IVPB TITR [facility]; Pr otocol Last Admin: 01/14/20 14:18 Dose: 30 mcg/kg/min, 23.76 mls/hr Documented by: Sodium Chloride (Normal Saline -) 250 mls @ 3,000 mls/hr IV PRN PRN PRN Reason: Hypotension during Dialysis Stop: 01/13/20 08:46 Insulin Aspart (Novolog Vial Sliding Scale -) 1 vial SQ ACHS [facility]; Protocol Last Admin: 01/14/20 11:37 Dose: Not Given Documented by: Mupirocin (Bactroban Ointment (For Decolonization) -) 1 applic NS BID [facility] Stop: 01/15/20 21:59 Last Admin: 01/14/20 09:30 Dose: 1 applic Documented by: Pantoprazole Sodium (Protonix Iv) 40 mg IVPUSH DAILY [facility] Last Admin: 01/14/20 09:30 Dose: 40 mg Documented by: Sodium Zirconium Cyclosilicate (Lokelma) 10 gm PO DAILY [facility] Last Admin: 01/14/20 09:30 Dose: 10 gm Documented by: - Objective Vital Signs: Vital Signs Temperature 115 F H 01/14/20 15:06 Pulse Rate 115 H 01/14/20 15:06 Respiratory Rate 23 H 01/14/20 16:45 Blood Pressure 112/69 01/14/20 15:06 O2 Sat by Pulse Oximetry (%) 100 01/14/20 16:45 Constitutional: Yes: Calm Eyes: Yes: Conjunctiva Clear HENT: Yes: Atraumatic Cardiovascular: Yes: S1, S2 Respiratory: Yes: Mechanically Ventilated Gastrointestinal: Yes: Soft, Abdomen, Obese Genitourinary: Yes: Johnson Present Edema: Yes Edema: LLE: Trace, RLE: Trace Wound/Incision: Yes: Dressing Dry and Intact Neurological: Yes: Lethargy Labs: CBC, BMP 01/14/20 05:30 01/14/20 05:30 INR, PTT INR 1.19 (0.83-1.09) H 01/14/20 10:30 Problem List - Problems (1) NOVA (acute kidney injury) Code(s): N17.9 - ACUTE KIDNEY FAILURE, UNSPECIFIED (2) DM2 (diabetes mellitus, type 2) Code(s): E11.9 - TYPE 2 DIABETES MELLITUS WITHOUT COMPLICATIONS Qualifiers: Diabetes mellitus intermediate designer insulin use: with intermediate designer use Diabetes mellitus complication detail: with other circulatory complications (3) Hyperkalemia Code(s): E87.5 - HYPERKALEMIA (4) Metabolic acidosis Code(s): E87.2 - ACIDOSIS Assessment/Plan Current Medications Generic Name Dose Route Start Last Admin Trade Name Freq PRN Reason Stop Dose Admin Amino Acids 30 ml 01/13/20 22:00 01/14/20 13:54 Prosource No Carb Liquid Pkt PO 30 ml TID [facility] Administration Atorvastatin Calcium 80 mg 01/12/20 22:00 01/13/20 21:12 Lipitor - PO 80 mg HS [facility] Administration Chlorhexidine Gluconate 1 applic 01/10/20 22:00 01/13/20 21:13 Hibiclens For Decolonization - TP 1 applic HS [facility] Administration Collagenase 1 applic 01/11/20 14:15 01/14/20 13:51 Santyl - TP 1 applic DAILY [facility] Administration Protocol Meropenem 1 gm/ Sodium 100 mls @ 200 mls/hr 01/11/20 10:00 01/14/20 09:29 Chloride IVPB 200 mls/hr BID [facility] Administration Midazolam HCl 100 mg in 100 mls @ 1 mls/hr 01/10/20 22:45 01/14/20 14:00 Midazolam 100mg/100ml-0.9%Nacl IVPB 3 mg/hr TITR [facility] 3 mls/hr Infusion Protocol 1 MG/HR Norepinephrine Bitartrate 8,000 mcg in 500 mls @ 18.75 mls/hr 01/11/20 03:15 01/14/20 06:22 Levophed Bag IVPB 5 mcg/min TITR [facility] 18.75 mls/hr Administration Protocol 5 MCG/MIN Fentanyl 500 mcg in 100 mls @ 20 mls/hr 01/11/20 06:16 01/14/20 14:18 Sublimaze Ivpb IVPB 75 mcg/hr TITR [facility] 15 mls/hr Titration Protocol Propofol 1,000,000 mcg in 100 mls @ 7.92 mls/hr 01/11/20 08:30 01/14/20 14:18 Diprivan - IVPB 30 mcg/kg/min TITR [facility] 23.76 mls/hr Administration Protocol 10 MCG/KG/MIN Sodium Chloride 250 mls @ 3,000 mls/hr 01/12/20 08:46 Normal Saline - IV 01/13/20 08:46 PRN PRN Hypotension during Dialysis Insulin Aspart 1 vial 01/10/20 22:00 01/14/20 11:37 Novolog Vial Sliding Scale - SQ Not Given ACHS [facility] Protocol Mupirocin 1 applic 01/10/20 22:00 01/14/20 09:30 Bactroban Ointment (For Decolonization) - NS 01/15/20 21:59 1 applic BID [facility] Administration Pantoprazole Sodium 40 mg 01/13/20 10:00 01/14/20 09:30 Protonix Iv IVPUSH 40 mg DAILY [facility] Administration Sodium Zirconium Cyclosilicate 10 gm 01/11/20 10:00 01/14/20 09:30 Lokelma PO 10 gm DAILY [facility] Administration Impression 1. NOVA 2. hyperkalemia 3. obesity 4. DM 5. a-fib 6. HTN 7. chronic lower extremity ulcers 8. gastritis 9. sepsis 10. hyperglycemia 11. metabolic acidosis 12. peripheral vascular disease 13. acute resp failure 14. shock 15. cva 16. thrombocytopenia Plan - reviewed labs - hold off HD today - monitor urine output - maintain map 65 - neuro follow up - will evaluate for HD tomorrow - cont vent support - wound care - cont abx - discussed with icu team - prognosis guarded
--- NOTE | 2020-01-14 17:45 | PN ---
Physical Exam: SUBJECTIVE: Patient seen and examined at bedside. pt is intubated and sedated OBJECTIVE: Vital Signs Period Temp Pulse Resp BP Sys/Callahan Pulse Ox Last 24 Hr 98.0 F-99.1 F 73-110 22-30 93-114/52-76 95-100 GENERAL: The patient is awake, alert, and fully oriented, in no acute distress. HEAD: Normal with no signs of trauma. EYES: PERRL LUNGS: vemt sounds equal b/l, no accessory muscle use. HEART: Regular rate and rhythm, S1, S2 + systolic murmur ABDOMEN: Soft, nondistended, normoactive bowel sounds, no guarding EXTREMITIES: b/l LE wounds. Laboratory Last Values WBC 9.3 K/mm3 (4.0-10.0) 01/14/20 05:30 RBC 3.14 M/mm3 (3.60-5.2) L 01/14/20 05:30 Hgb 8.8 GM/dL (10.7-15.3) L 01/14/20 05:30 Hct 26.7 % (32.4-45.2) L 01/14/20 05:30 MCV 85.1 fl (80-96) 01/14/20 05:30 MCH 28.0 pg (25.7-33.7) 01/14/20 05:30 MCHC 32.9 g/dl (32.0-36.0) 01/14/20 05:30 RDW 15.1 % (11.6-15.6) 01/14/20 05:30 Plt Count 25 K/MM3 (134-434) L* D 01/14/20 05:30 MPV 9.2 fl (7.5-11.1) 01/14/20 05:30 Absolute Neuts (auto) 11.8 K/mm3 (1.5-8.0) H 01/13/20 05:00 Total Counted 100 01/11/20 02:00 Neutrophils % 92.1 % (42.8-82.8) H 01/13/20 05:00 Neutrophils % (Manual) 87.0 % (42.8-82.8) H 01/13/20 05:00 Band Neutrophils % 5.0 % 01/13/20 05:00 Lymphocytes % 2.0 % (8-40) L D 01/13/20 05:00 Lymphocytes % (Manual) 1.0 % (8-40) L D 01/13/20 05:00 Monocytes % 4.5 % (3.8-10.2) 01/13/20 05:00 Monocytes % (Manual) 4 % (3.8-10.2) 01/13/20 05:00 Eosinophils % 1.2 % (0-4.5) D 01/13/20 05:00 Eosinophils % (Manual) 3.0 % (0-4.5) D 01/13/20 05:00 Basophils % 0.2 % (0-2.0) 01/13/20 05:00 Basophils % (Manual) 0.0 % (0-2.0) 01/13/20 05:00 Myelocytes % (Man) 0 % (0-2) 01/13/20 05:00 Promyelocytes % (Man) 0 % (0-2) 01/13/20 05:00 Blast Cells % (Manual) 0 % (0-0) 01/13/20 05:00 Nucleated RBC % 0 % (0-0) 01/13/20 05:00 Metamyelocytes 0 % (0-2) 01/13/20 05:00 Hypochromia 0 01/13/20 05:00 Platelet Estimate Decreased 01/13/20 05:00 Platelet Comment No clotting detected 01/11/20 02:00 Platelet Comment No clumping noted 01/11/20 02:00 Polychromasia 0 01/13/20 05:00 Poikilocytosis 0 01/13/20 05:00 Anisocytosis 0 01/13/20 05:00 Microcytosis 0 01/13/20 05:00 Macrocytosis 0 01/13/20 05:00 PT with INR 14.10 SEC (9.7-13.0) H 01/14/20 10:30 INR 1.19 (0.83-1.09) H 01/14/20 10:30 PTT (Actin FS) 27.6 SECONDS (25.2-36.5) 01/14/20 10:30 Anticoagulation Therapy No Result Required. 01/14/20 09:52 Puncture Site Right radial 01/14/20 09:52 Patient Temperature No Result Required. 01/14/20 09:52 ABG pH 7.355 (7.350-7.450) 01/14/20 09:52 ABG pCO2 32.90 mmHg (35-45) L 01/14/20 09:52 ABG pO2 85.6 mmHg (80-100) 01/14/20 09:52 ABG HCO3 18.0 mmol/L (22-27) L 01/14/20 09:52 ABG O2 Sat (Measured) 96.2 mmHg (95-98) 01/14/20 09:52 ABG O2 Content No Result Required. 01/14/20 09:52 ABG Base Excess -6.7 mmol/L (-2-2) L 01/14/20 09:52 Kwesi Test Positive 01/14/20 09:52 Patient On Oxygen Yes 01/14/20 09:52 O2 Delivery Device Vent 01/14/20 09:52 Oxygen Flow Rate 50% 01/14/20 09:52 Vent Mode A/c 01/14/20 09:52 Vent Rate 28 01/14/20 09:52 Mechanical Rate Yes 01/14/20 09:52 PEEP 5.0 cmH2O 01/14/20 09:52 Pressure Support Vent 400 01/14/20 09:52 Sodium 128 mmol/L (136-145) L 01/14/20 05:30 Potassium 3.5 mmol/L (3.5-5.1) 01/14/20 05:30 Chloride 93 mmol/L (98-107) L 01/14/20 05:30 Carbon Dioxide 21 mmol/L (21-32) 01/14/20 05:30 Anion Gap 13 MMOL/L (8-16) 01/14/20 05:30 BUN 76.3 mg/dL (7-18) H 01/14/20 05:30 Creatinine 4.1 mg/dL (0.55-1.3) H 01/14/20 05:30 Est GFR (CKD-EPI)AfAm 13.25 01/14/20 05:30 Est GFR (CKD-EPI)NonAf 11.43 01/14/20 05:30 POC Glucometer 183 UNITS (80-120) 01/14/20 16:18 Random Glucose 159 mg/dL (74-106) H 01/14/20 05:30 Lactic Acid 0.6 mmol/L (0.4-2.0) 01/10/20 11:18 Calcium 7.6 mg/dL (8.5-10.1) L 01/14/20 05:30 Phosphorus 8.7 mg/dL (2.5-4.9) H 01/14/20 05:30 Magnesium 1.8 mg/dL (1.8-2.4) 01/14/20 05:30 Iron 30 ug/dL (50-175) L 01/14/20 05:30 TIBC 215 ug/dL (250-450) L 01/14/20 05:30 Iron Saturation 13 % (17.5-39) L 01/14/20 05:30 Unsaturated IBC 185 ug/dL (200-275) L 01/14/20 05:30 Ferritin 244.2 ng/ml (8-388) 01/14/20 05:30 Total Bilirubin 1.0 mg/dL (0.2-1) 01/14/20 05:30 AST 34 U/L (15-37) 01/14/20 05:30 ALT 38 U/L (13-61) 01/14/20 05:30 Alkaline Phosphatase 135 U/L (45-117) H 01/14/20 05:30 LD Total 160 U/L (84-246) 01/14/20 05:30 Creatine Kinase 2014 U/L (26-192) H 01/11/20 10:00 Creatine Kinase Index 0.2 % (0.0-5.0) 01/11/20 10:00 CK-MB (CK-2) 5.3 ng/mL (0.5-3.6) H 01/11/20 10:00 Troponin I 0.02 ng/ml (0.00-0.05) 01/11/20 10:00 Total Protein 5.2 g/dl (6.4-8.2) L 01/14/20 05:30 Albumin 1.8 g/dl (3.4-5.0) L 01/14/20 05:30 Urine Color Dk yellow 01/10/20 16:00 Urine Appearance Turbid 01/10/20 16:00 Urine pH 5.0 (5.0-8.0) 01/10/20 16:00 Ur Specific Liberty 1.027 (1.010-1.035) 01/10/20 16:00 Urine Protein 1+ (NEGATIVE) H 01/10/20 16:00 Urine Glucose (UA) Trace (NEGATIVE) 01/10/20 16:00 Urine Ketones Trace (NEGATIVE) H 01/10/20 16:00 Urine Blood Negative (NEGATIVE) 01/10/20 16:00 Urine Nitrite Negative (NEGATIVE) 01/10/20 16:00 Urine Bilirubin Negative (NEGATIVE) 01/10/20 16:00 Urine Urobilinogen 1.0 mg/dL (0.2-1.0) 01/10/20 16:00 Ur Leukocyte Esterase Negative (NEGATIVE) 01/10/20 16:00 Urine WBC (Auto) 76.2 /uL (0-25.8) 01/10/20 16:00 Urine RBC (Auto) 27 /uL (0-23.9) 01/10/20 16:00 Urine Casts (Auto) 57 /uL (0-3.1) 01/10/20 16:00 U Pathogenic Cast Auto Negative /lpf (NEGATIVE) 01/10/20 16:00 U Epithel Cells (Auto) >36 /uL (0-25.1) 01/10/20 16:00 Urine Bacteria (Auto) 259.1 /uL (0-1359) 01/10/20 16:00 Random Vancomycin 21.3 ug/ml (5-26) 01/12/20 05:00 COVID-19 (AZEEM) Not detected (Not Detected) 01/10/20 16:00 Hep Bs Antigen Negative (Negative) 01/10/20 17:15 Hep C Ab Diagnostic <0.1 s/co ratio (0.0-0.9) 01/10/20 17:15 Blood Type A POSITIVE 01/14/20 12:30 Antibody Screen Negative 01/14/20 12:30 Direct Antiglob Test Positive (NEGATIVE) 01/14/20 12:30 Active Medications Generic Name Dose Route Start Last Admin Trade Name Freq PRN Reason Stop Dose Admin Amino Acids 30 ml 01/13/20 22:00 01/14/20 13:54 Prosource No Carb Liquid Pkt PO 30 ml TID [facility] Administration Atorvastatin Calcium 80 mg 01/12/20 22:00 01/13/20 21:12 Lipitor - PO 80 mg HS LANCE Administration Chlorhexidine Gluconate 1 applic 01/10/20 22:00 01/13/20 21:13 Hibiclens For Decolonization - TP 1 applic HS [facility]ANCE Administration Collagenase 1 applic 01/11/20 14:15 01/14/20 13:51 Santyl - TP 1 applic DAILY [facility] Administration Protocol Meropenem 1 gm/ Sodium 100 mls @ 200 mls/hr 01/11/20 10:00 01/14/20 09:29 Chloride IVPB 200 mls/hr BID [facility] Administration Midazolam HCl 100 mg in 100 mls @ 1 mls/hr 01/10/20 22:45 01/14/20 14:00 Midazolam 100mg/100ml-0.9%Nacl IVPB 3 mg/hr TITR LANCE 3 mls/hr Infusion Protocol 1 MG/HR Norepinephrine Bitartrate 8,000 mcg in 500 mls @ 18.75 mls/hr 01/11/20 03:15 01/14/20 06:22 Levophed Bag IVPB 5 mcg/min TITR LANCE 18.75 mls/hr Administration Protocol 5 MCG/MIN Fentanyl 500 mcg in 100 mls @ 20 mls/hr 01/11/20 06:16 01/14/20 14:18 Sublimaze Ivpb IVPB 75 mcg/hr TITR L[facility] 15 mls/hr Titration Protocol Propofol 1,000,000 mcg in 100 mls @ 7.92 mls/hr 01/11/20 08:30 01/14/20 14:18 Diprivan - IVPB 30 mcg/kg/min TITR LANCE 23.76 mls/hr Administration Protocol 10 MCG/KG/MIN Sodium Chloride 250 mls @ 3,000 mls/hr 01/12/20 08:46 Normal Saline - IV 01/13/20 08:46 PRN PRN Hypotension during Dialysis Insulin Aspart 1 vial 01/10/20 22:00 01/14/20 11:37 Novolog Vial Sliding Scale - SQ Not Given ACHS [facility] Protocol Mupirocin 1 applic 01/10/20 22:00 01/14/20 09:30 Bactroban Ointment (For Decolonization) - NS 01/15/20 21:59 1 applic BID LANCE Administration Pantoprazole Sodium 40 mg 01/13/20 10:00 01/14/20 09:30 Protonix Iv IVPUSH 40 mg DAILY [facility] Administration Sodium Zirconium Cyclosilicate 10 gm 01/11/20 10:00 01/14/20 09:30 Lokelma PO 10 gm DAILY [facility] Administration HeadCT: Allowing for partially obscuring artifact there appears to be interval development of a 4 x 3 cm nonspecific right parieto-occipital hypodense focus in comparison to a prior CT exam of 04/24/2019. This finding could be on the basis of acute or chronic infarction versus possible infectious or neoplastic disease. A component of this appearance could also conceivably be artifactual as discussed above. Correlation with follow-up contrast enhanced CT or MRI is suggested. Cspine CT : No definite fracture is identified. RPT HEAD CT:Moderate to large acute/subacute infarct in the right posterior frontal and parietal lobe with suggestion of interval petechial hemorrhagic transformation, as described above. Focal acute/subacute infarct in the left occipital lobe that was not grossly seen on the prior exam. ASSESSMENT/PLAN: 54 yo F w/ PMH CKD , afib (Eliquis), DM, HTN, chronic LE ulcers . admitted for acute toxic metabolic encephalopathy in icu for septic shock requiring pressor support. Neuro intubated and sedated on propofol CT head reviewed, rd above. acute ischemic stroke, now with 2 "tiny" petechial hemorrhage transformation. will rpt today c/w atorvastatin neuro consulted maintain SBP <140 Cardio Afib hypotensive unresponsive to fluid resuscitation s/p 3L LR HTN - c/w levophed support to maintain MAP >65. off fludrocortisone and solu cortef . today levo 5 - eliquis stopped -hold home HTN meds due to septic shock - cardio consulted Pulmonary -intubated - monitor and maintain Spo2>90% -rpt ABG reviewed, CXR reviewed A/C: //50 GI -no acute issues Endo DM -hold home PO meds -c/w ISS + BGM ACHS ID septic shock likely 2/2 cellulitis - wound culture multiple organism - c/w Meropenem d 4 - f/u cultures -Vascular surgeon consulted for LE ulcers with pending recommendations -ID , Dr. Jaylon keith appreciated Renal Renal failure CKD -Nephro consulted. hold off dialysis today -Monitor I/O's Heme / Onc - plt 25 , Hemoglobin 8.8 - heme consulted, Dr. wick - will give 1 plts - rpt CBC reviewed plt 29. rpt another at midnight. - LDH 170, unlikely TTP , HIT FEN - NS @ 75 - monitor and replete electrolytes - feeds running LTD -cuevas - LIJ 01/10 -L fem trialysis 01/09 Ppx -DVT: on eliquis cont icu level of care. meds confirmed with pharmacy ATTENDING PHYSICIAN STATEMENT I saw and evaluated the patient. I reviewed the resident's note and discussed the case with the resident. I agree with the resident's findings and plan as documented. SUBJECTIVE: OBJECTIVE: ASSESSMENT AND PLAN:
--- NOTE | 2020-01-14 18:17 | PN ---
Teaching Attending Note Name of Resident: Meri Reese ATTENDING PHYSICIAN STATEMENT I saw and evaluated the patient. I reviewed the resident's note and discussed the case with the resident. I agree with the resident's findings and plan as documented. ASSESSMENT AND PLAN: Patient is a 54 year old female with past medical history of CKD, Afib (on eliquis), DM, chronic LE ulcers, was brought in to the ED after a fall and was found to be in acute respiratory failure and septic shock. We were consulted for further evaluation of thrombocytopenia. #Thrombocytopenia New onset-- over last 2 days ? consumptive 2/2 sepsis, but hemodynamic parameters iproving ? drug induced --immune mediated Unlikely HIT -- no heparin exposure Unlikely TTP -- no evidence of hemolysis Daria + but LDH nl hence unlikely active hemolysis CT head reviewed --- acute/subacute infarcts with petechial infarcts. Disucssed with neurology No e/o hemorrhagic transformation Eliquis last dose 01/11 in AM Due to NOVA expect it to take 3- 5 days to completely clear /Repeat head CT Transfused 1 unit platelets with platelets showing no major improvement Suspect destruction/consumption Since sepsis improving , dug induced immune destruction a possibility . Also with eosinophilia will d/c meropenem discussed with ID team discussed with house staff
[2020-01-14] MEDS ORDERED: INSULIN (NOVOLOG) ASPART 100 UNITS/ML 10ML VIAL ONE (18:31)
[2020-01-14 18:38] LABS: BASO % 0.4 % (0-2.0); EOS % 6.9 % (0-4.5); HEMATOCRIT 25.7 % (32.4-45.2); HEMOGLOBIN 8.6 GM/dL (10.7-15.3); LYMPH % 3.1 % (8-40); MCH 28.6 pg (25.7-33.7); MCHC 33.6 g/dl (32.0-36.0); MEAN CELL VOLUME 85.2 fl (80-96); MEAN PLT VOLUME 9.9 fl (7.5-11.1); MONO % 4.7 % (3.8-10.2); NEUT % 84.9 % (42.8-82.8); RBC 3.01 M/mm3 (3.60-5.2); RDW 14.8 % (11.6-15.6); WHITE BLOOD COUNT 8.1 K/mm3 (4.0-10.0)
[2020-01-14 18:44] LABS: PLATELET COUNT 29 K/MM3 (134-434)
[2020-01-14] MEDS ORDERED: TIGECYCLINE 100 MG in DEXTROSE 5%-WATER - 100 ML IVPB ONE (21:00)
[2020-01-14] MEDS: CHLORHEXIDINE GLUCONATE 4% CLEANSER FOR DECOLONIZATION TP SCH (22:55)
[2020-01-14] MEDS: ATORVASTATIN CA 80 MG TABLET (FP) PO SCH (22:57)
[2020-01-15] MEDS: AMINO ACIDS/PROTEIN HYDROLYS 30 ML LIQUID.PKT PO SCH ×3 (06:35→22:00)
[2020-01-15] MEDS: NOREPINEPHRINE BITARTRATE 8,000 MCG/500 ML BAG IVPB SCH ×2 (06:36→15:56)
[2020-01-15] MEDS: FENTANYL IVPB 500 MCG/100 ML BAG IVPB SCH ×3 (06:36→15:55)
[2020-01-15] MEDS: INSULIN SLIDING SCALE (NOVOLOG) 1 VIAL SQ SCH ×4 (07:02→22:27)
[2020-01-15 08:07] LABS: BASO % 0.4 % (0-2.0); EOS % 6.9 % (0-4.5); HEMATOCRIT 27.1 % (32.4-45.2); HEMOGLOBIN 9.2 GM/dL (10.7-15.3); MEAN CELL VOLUME 85.3 fl (80-96); MEAN PLT VOLUME 10.5 fl (7.5-11.1); MONO % 5.1 % (3.8-10.2); NEUT % 82.6 % (42.8-82.8); PLATELET COUNT 39 K/MM3 (134-434); RBC 3.17 M/mm3 (3.60-5.2); RDW 14.7 % (11.6-15.6); WHITE BLOOD COUNT 9.8 K/mm3 (4.0-10.0)
[2020-01-15 08:13] LABS: ALBUMIN 1.9 g/dl (3.4-5.0); BILIRUBIN,TOTAL 0.9 mg/dL (0.2-1); CALCIUM 7.8 mg/dL (8.5-10.1); CREATININE 3.9 mg/dL (0.55-1.3); POTASSIUM 3.5 mmol/L (3.5-5.1); TOT PROT 5.4 g/dl (6.4-8.2)
[2020-01-15 08:21] LABS: BLOOD UREA NITROGEN 93.8 mg/dL (7-18)
[2020-01-15 08:50] LABS: INR 1.17 (0.83-1.09); PROTHROMBIN TIME (PATIENT) 13.8 SEC (9.7-13.0)
[2020-01-15 08:51] LABS: ACTIVATED PTT 28.2 SECONDS (25.2-36.5)
[2020-01-15] MEDS: SODIUM ZIRCONIUM CYCLOSILICATE (LOKELMA) 5 GM PACKET PO SCH (09:12)
[2020-01-15] MEDS: PROPOFOL 1,000,000 MCG/100 ML VIAL IVPB SCH ×3 (09:12→18:32)
[2020-01-15] MEDS: PANTOPRAZOLE SODIUM 40 MG VIAL IVPUSH SCH (09:12)
[2020-01-15] MEDS: MUPIROCIN 2% TOPICAL OINTMENT FOR DECOLONIZATION NS SCH (09:15)
[2020-01-15 09:27] LABS: ANISOCYTOSIS 0; MACROCYTOSIS 0; PLATELET ESTIMATE DECREASED
--- NOTE | 2020-01-15 09:32 | PN ---
Progress Note, Physician Chief Complaint: INTUBATED AND SEDATED EVENTS AND NOTE REVIEWED - Current Medication List Current Medications: Active Medications Amino Acids (Prosource No Carb Liquid Pkt) 30 ml PO TID [facility] Last Admin: 01/15/20 06:35 Dose: 30 ml Documented by: Atorvastatin Calcium (Lipitor -) 80 mg PO HS [facility]ANCE Last Admin: 01/14/20 22:57 Dose: 80 mg Documented by: Chlorhexidine Gluconate (Hibiclens For Decolonization -) 1 applic TP HS [facility] Last Admin: 01/14/20 22:55 Dose: 1 applic Documented by: Collagenase (Santyl -) 1 applic TP DAILY [facility]; Protocol Last Admin: 01/14/20 13:51 Dose: 1 applic Documented by: Midazolam HCl (Midazolam 100mg/100ml-0.9%Nacl) 100 mg in 100 mls @ 1 mls/hr IVPB TITR [facility]; Protocol Last Admin: 01/14/20 22:57 Dose: 3 mg/hr, 3 mls/hr Documented by: Norepinephrine Bitartrate (Levophed Bag) 8,000 mcg in 500 mls @ 18.75 mls/hr IVPB TITR [facility]; Protocol Last Admin: 01/15/20 06:36 Dose: 5 mcg/min, 18.75 mls/hr Documented by: Fentanyl (Sublimaze Ivpb) 500 mcg in 100 mls @ 20 mls/hr IVPB TITR [facility]; Protocol Last Admin: 01/15/20 06:36 Dose: 75 mcg/hr, 15 mls/hr Documented by: Propofol (Diprivan -) 1,000,000 mcg in 100 mls @ 7.92 mls/hr IVPB TITR [facility]; Protocol Last Admin: 01/15/20 09:12 Dose: 35 mcg/kg/min, 27.72 mls/hr Documented by: Sodium Chloride (Normal Saline -) 250 mls @ 3,000 mls/hr IV PRN PRN PRN Reason: Hypotension during Dialysis Stop: 01/13/20 08:46 Tigecycline 50 mg/ Dextrose 100 mls @ 100 mls/hr IVPB BID [facility]; Protocol Insulin Aspart (Novolog Vial Sliding Scale -) 1 vial SQ ACHS [facility]; Protocol Last Admin: 01/15/20 07:02 Dose: Not Given Documented by: Mupirocin (Bactroban Ointment (For Decolonization) -) 1 applic NS BID [facility] Stop: 01/15/20 21:59 Last Admin: 01/15/20 09:15 Dose: 1 applic Documented by: Pantoprazole Sodium (Protonix Iv) 40 mg IVPUSH DAILY [facility] Last Admin: 01/15/20 09:12 Dose: 40 mg Documented by: Sodium Zirconium Cyclosilicate (Lokelma) 10 gm PO DAILY [facility] Last Admin: 01/15/20 09:12 Dose: 10 gm Documented by: - Objective Vital Signs: Vital Signs Temperature 98.2 F 01/15/20 01:00 Pulse Rate 85 01/15/20 08:18 Respiratory Rate 22 H 01/15/20 08:18 Blood Pressure 116/84 01/15/20 09:00 O2 Sat by Pulse Oximetry (%) 99 01/15/20 08:18 Constitutional: Yes: Other Cardiovascular: Yes: Regular Rate and Rhythm Respiratory: Yes: Diminished, Mechanically Ventilated Gastrointestinal: Yes: Soft, Abdomen, Obese Genitourinary: Yes: Johnson Present Musculoskeletal: Yes: Muscle Weakness Edema: Yes Peripheral Pulses WNL: Yes Integumentary: Yes: Erythema, Pressure Ulcer, Venous Stasis Changes Wound/Incision: Yes: Dressing Dry and Intact, Excoriated, Unapproximated Neurological: Yes: Pre-Existing Deficit Labs: CBC, BMP 01/15/20 06:30 01/15/20 06:30 INR, PTT INR 1.17 (0.83-1.09) H 01/15/20 06:30 Fibrinogen > 500.0 mg/dL (238-498) H 01/15/20 06:30 Problem List - Problems (1) ARF (acute renal failure) Code(s): N17.9 - ACUTE KIDNEY FAILURE, UNSPECIFIED Qualifiers: Acute renal failure type: unspecified Qualified Code(s): N17.9 - Acute kidney failure, unspecified (2) CVA (cerebral vascular accident) Code(s): I63.9 - CEREBRAL INFARCTION, UNSPECIFIED (3) Diabetic calf ulcer Code(s): E11.622 - TYPE 2 DIABETES MELLITUS WITH OTHER SKIN ULCER; L97.209 - NON-PRESSURE CHRONIC ULCER OF UNSP CALF WITH UNSP SEVERITY (4) Hyperkalemia Code(s): E87.5 - HYPERKALEMIA (5) Respiratory failure Code(s): J96.90 - RESPIRATORY FAILURE, UNSP, UNSP W HYPOXIA OR HYPERCAPNIA (6) Septic shock Code(s): A41.9 - SEPSIS, UNSPECIFIED ORGANISM; R65.21 - SEVERE SEPSIS WITH SEPTIC SHOCK (7) NOVA (acute kidney injury) Code(s): N17.9 - ACUTE KIDNEY FAILURE, UNSPECIFIED (8) Abdominal lymphadenopathy Code(s): R59.0 - LOCALIZED ENLARGED LYMPH NODES (9) Afib Code(s): I48.91 - UNSPECIFIED ATRIAL FIBRILLATION Qualifiers: Atrial fibrillation type: paroxysmal Qualified Code(s): I48.0 - Paroxysmal atrial fibrillation (10) Bilateral leg ulcer Code(s): L97.919 - NON-PRS CHRONIC ULC UNSP PRT OF R LOW LEG W UNSP SEVERITY; L97.929 - NON-PRS CHRONIC ULC UNSP PRT OF L LOW LEG W UNSP SEVERITY Qualifiers: Non-pressure ulcer stage: limited to breakdown of skin Qualified Code(s): L97.911 - Non-pressure chronic ulcer of unspecified part of right lower leg limited to breakdown of skin; L97.921 - Non-pressure chronic ulcer of unspecified part of left lower leg limited to breakdown of skin (11) Chronic cellulitis Code(s): L03.90 - CELLULITIS, UNSPECIFIED (12) Severe sepsis Code(s): A41.9 - SEPSIS, UNSPECIFIED ORGANISM; R65.20 - SEVERE SEPSIS WITHOUT SEPTIC SHOCK Assessment/Plan IV ABX PER ID CHECK WITH RENAL ON HD STATUS RESPIRATORY SUPPORT WEAN OFF VENT PER PULMONARY EXTREMELY NON-COMPLIANT PATIENT NEEDS [employer]OVE FA[employer] SE[employer]ER AND PSYCH FOR F/U AND SUPPORT GROUP DM CONTROL WOUND CARE BACTROBAN DAILY CLEAN WOUNDS APPLY DRESSINGS
[2020-01-15] MEDS: TIGECYCLINE 50 MG in DEXTROSE 5%-WATER 100 ML IVPB SCH ×2 (09:41→22:00)
--- NOTE | 2020-01-15 10:50 | PN ---
Progress Note, Physician Chief Complaint: intubated and sedated tele no events. History of Present Illness: 54 year old female with a history of chronic AFIB on Eliquis, HTN, DM HLD, CKD, chronic bilateral leg ulcers, prior admissions for sepsis admitted after a fall found to be hypotensive, in NOVA on CKD, septic with shock, complicated by respiratory failure, thrombocytopenia. Now found with new acute CVA right po sterior frontal and parietal lobe with patechial hemorrhage. Intubated and sedated on pressors. Echo 11/14/18: TDS ef 55-60 being seen by heme for low plts likely comsumptive. echo 01/14/20 TDS nlef HeadCT: Allowing for partially obscuring artifact there appears to be interval development of a 4 x 3 cm nonspecific right parieto-occipital hypodense focus in comparison to a prior CT exam of 04/24/2019. This finding could be on the basis of acute or chronic infarction versus possible infectious or neoplastic disease. A component of this appearance could also conceivably be artifactual as discussed above. Correlation with follow-up contrast enhanced CT or MRI is suggested. Cspine CT : No definite fracture is identified. RPT HEAD CT:Moderate to large acute/subacute infarct in the right posterior frontal and parietal lobe with suggestion of interval petechial hemorrhagic transformation, as described above. Focal acute/subacute infarct in the left occipital lobe that was not grossly seen on the prior exam. - Current Medication List Current Medications: Active Medications Amino Acids (Prosource No Carb Liquid Pkt) 30 ml PO TID [facility] Last Admin: 01/15/20 06:35 Dose: 30 ml Documented by: Atorvastatin Calcium (Lipitor -) 80 mg PO HS [facility] Last Admin: 01/14/20 22:57 Dose: 80 mg Documented by: Chlorhexidine Gluconate (Hibiclens For Decolonization -) 1 applic TP HS [facility] Last Admin: 01/14/20 22:55 Dose: 1 applic Documented by: Collagenase (Santyl -) 1 applic TP DAILY [facility]; Protocol Last Admin: 01/14/20 13:51 Dose: 1 applic Documented by: Midazolam HCl (Midazolam 100mg/100ml-0.9%Nacl) 100 mg in 100 mls @ 1 mls/hr IVPB TITR [facility]; Protocol Last Admin: 01/14/20 22:57 Dose: 3 mg/hr, 3 mls/hr Documented by: Norepinephrine Bitartrate (Levophed Bag) 8,000 mcg in 500 mls @ 18.75 mls/hr IVPB TITR [facility]; Protocol Last Admin: 01/15/20 06:36 Dose: 5 mcg/min, 18.75 mls/hr Documented by: Fentanyl (Sublimaze Ivpb) 500 mcg in 100 mls @ 20 mls/hr IVPB TITR [facility]; Protocol Last Admin: 01/15/20 06:36 Dose: 75 mcg/hr, 15 mls/hr Documented by: Propofol (Diprivan -) 1,000,000 mcg in 100 mls @ 7.92 mls/hr IVPB TITR [facility]; Protocol Last Admin: 01/15/20 09:12 Dose: 35 mcg/kg/min, 27.72 mls/hr Documented by: Sodium Chloride (Normal Saline -) 250 mls @ 3,000 mls/hr IV PRN PRN PRN Reason: Hypotension during Dialysis Stop: 01/13/20 08:46 Tigecycline 50 mg/ Dextrose 100 mls @ 100 mls/hr IVPB BID [facility]; Protocol Last Admin: 01/15/20 09:41 Dose: 100 mls/hr Documented by: Insulin Aspart (Novolog Vial Sliding Scale -) 1 vial SQ ACHS [facility]; Protocol Last Admin: 01/15/20 07:02 Dose: Not Given Documented by: Mupirocin (Bactroban Ointment (For Decolonization) -) 1 applic NS BID [facility] Stop: 01/15/20 21:59 Last Admin: 01/15/20 09:15 Dose: 1 applic Documented by: Pantoprazole Sodium (Protonix Iv) 40 mg IVPUSH DAILY [facility] Last Admin: 01/15/20 09:12 Dose: 40 mg Documented by: Sodium Zirconium Cyclosilicate (Lokelma) 10 gm PO DAILY [facility] Last Admin: 01/15/20 09:12 Dose: 10 gm Documented by: - Objective Vital Signs: Vital Signs Temperature 99.3 F 01/15/20 10:00 Pulse Rate 103 H 01/15/20 10:00 Respiratory Rate 22 H 01/15/20 10:00 Blood Pressure 124/69 01/15/20 10:00 O2 Sat by Pulse Oximetry (%) 99 01/15/20 10:00 Constitutional: Yes: Obese HENT: Yes: Normocephalic Neck: Yes: Trachea Midline Cardiovascular: Yes: Pulse Irregular Respiratory: Yes: Mechanically Ventilated Gastrointestinal: Yes: Normal Bowel Sounds, Abdomen, Obese Musculoskeletal: Yes: WNL Extremities: Yes: Other (bandage due to ulcers.) Edema: Yes Peripheral Pulses WNL: No Labs: CBC, BMP 01/15/20 06:30 01/15/20 06:30 INR, PTT INR 1.17 (0.83-1.09) H 01/15/20 06:30 Fibrinogen > 500.0 mg/dL (238-498) H 01/15/20 06:30 Assessment/Plan 54 year old female with a history of chronic AFIB on Eliquis, HTN, DM HLD, CKD, chronic bilateral leg ulcers, prior admissions for sepsis admitted after a fall found to be hypotensive, in NOVA on CKD, septic with shock, complicated by respiratory failure, thrombocytopenia. Now found with new acute CVA right posterior frontal and parietal lobe with patechial hemorrhage. Intubated and sedated on pressors. Echo 11/14/18: TDS ef 55-60 HeadCT: Allowing for partially obscuring artifact there appears to be interval development of a 4 x 3 cm nonspecific right parieto-occipital hypodense focus in comparison to a prior CT exam of 04/24/2019. This finding could be on the basis of acute or chronic infarction versus possible infectious or neoplastic disease. A component of this appearance could also conceivably be artifactual as discussed above. Correlation with follow-up contrast enhanced CT or MRI is suggested. Cspine CT : No definite fracture is identified. RPT HEAD CT:Moderate to large acute/subacute infarct in the right posterior frontal and parietal lobe with suggestion of interval petechial hemorrhagic transformation, as described above. Focal acute/subacute infarct in the left occipital lobe that was not grossly seen on the prior exam. IMP: -acute CVA, chronic atrial fibrillation, while on low dose eliquis. Possibly embolic or due to hypotension/hypopefusion. -Likely source is leg ulcers. No bacteremia -follow cultures, Abx per ICU and ID. -hold eliquis for now, resume when CT scan confirms stable from hemorrhagic point. Small punctate foci are not a lifelong contraindication, would probably wait at least 14 days off of AC for now. -continue vent and pressor support per ICU team. -HD per renal. -thrombocytopenia pompa per heme, likely comsumptive. -echo normal EF. -prognosis is guarded. -will follow with you.
[2020-01-15] MEDS ORDERED: INSULIN (NOVOLOG) ASPART 100 UNITS/ML 10ML VIAL ONE (11:18)
[2020-01-15] MEDS: COLLAGENASE CLOSTRIDIUM HIST. 30 GRAMS TUBE TP SCH (13:12)
--- NOTE | 2020-01-15 13:17 | PN ---
Teaching Attending Note Name of Resident: Nehal Valerio ATTENDING PHYSICIAN STATEMENT I saw and evaluated the patient. I reviewed the resident's note and discussed the case with the resident. I agree with the resident's findings and plan as documented. SUBJECTIVE: Patient seen and examined in the ICU. Remains intubated and sedated NE @ 7.5mcq for hemodynamic support. Increasing urine output. OBJECTIVE: Intake & Output 01/12/20 01/13/20 01/14/20 01/15/20 23:59 23:59 23:59 23:59 Intake Total 6056 2119 2791 1007 Output Total 8040 550 2050 800 Balance -1983 1569 741 207 Weight 291 lb 307 lb 15.772 oz 309 lb 1.409 oz 321 lb 6.943 oz Last Vital Signs Temp Pulse Resp BP Pulse Ox 99.3 F 103 H 22 H 108/71 97 01/15/20 10:00 01/15/20 10:00 01/15/20 12:01 01/15/20 11:00 01/15/20 12:12 Active Medications Amino Acids (Prosource No Carb Liquid Pkt) 30 ml PO TID LANCE Last Admin: 01/15/20 13:11 Dose: 30 ml Documented by: Atorvastatin Calcium (Lipitor -) 80 mg PO HS LANCE Last Admin: 01/14/20 22:57 Dose: 80 mg Documented by: Chlorhexidine Gluconate (Hibiclens For Decolonization -) 1 applic TP HS LANCE Last Admin: 01/14/20 22:55 Dose: 1 applic Documented by: Collagenase (Santyl -) 1 applic TP DAILY LANCE; Protocol Last Admin: 01/15/20 13:12 Dose: 1 applic Documented by: Midazolam HCl (Midazolam 100mg/100ml-0.9%Nacl) 100 mg in 100 mls @ 1 mls/hr IVPB TITR LANCE; Protocol Last Admin: 01/14/20 22:57 Dose: 3 mg/hr, 3 mls/hr Documented by: Norepinephrine Bitartrate (Levophed Bag) 8,000 mcg in 500 mls @ 18.75 mls/hr IVPB TITR LANCE; Protocol Last Admin: 01/15/20 06:36 Dose: 5 mcg/min, 18.75 mls/hr Documented by: Fentanyl (Sublimaze Ivpb) 500 mcg in 100 mls @ 20 mls/hr IVPB TITR LANCE; Protocol Last Admin: 01/15/20 10:54 Dose: 75 mcg/hr, 15 mls/hr Documented by: Propofol (Diprivan -) 1,000,000 mcg in 100 mls @ 7.92 mls/hr IVPB TITR LANCE; Protocol Last Admin: 01/15/20 13:11 Dose: 35 mcg/kg/min, 27.72 mls/hr Documented by: Tigecycline 50 mg/ Dextrose 100 mls @ 100 mls/hr IVPB BID LANCE; Protocol Last Admin: 01/15/20 09:41 Dose: 100 mls/hr Documented by: Insulin Aspart (Novolog Vial Sliding Scale -) 1 vial SQ ACHS LANCE; Protocol Last Admin: 01/15/20 11:21 Dose: 2 units Documented by: Mupirocin (Bactroban Ointment (For Decolonization) -) 1 applic NS BID [facility] Stop: 01/15/20 21:59 Last Admin: 01/15/20 09:15 Dose: 1 applic Documented by: Pantoprazole Sodium (Protonix Iv) 40 mg IVPUSH DAILY LANCE Last Admin: 01/15/20 09:12 Dose: 40 mg Documented by: Sodium Zirconium Cyclosilicate (Lokelma) 10 gm PO DAILY LANCE Last Admin: 01/15/20 09:12 Dose: 10 gm Documented by: GENERAL: Intubated and sedated HEAD: Normal with no signs of trauma. LUNGS: vented, diminished throughout, no wheezes HEART: Regular rate and rhythm, S1, S2 + systolic murmur ABDOMEN: Soft, obese, nondistended, normoactive bowel sounds, no guarding EXTREMITIES: b/l LE wounds, open wounds throughout both legs , w/ drainage Laboratory Results - last 24 hr 01/14/20 01/14/20 01/14/20 10:30 12:30 16:18 WBC RBC Hgb Hct MCV MCH MCHC RDW Plt Count MPV Absolute Neuts (auto) Neutrophils % Neutrophils % (Manual) Band Neutrophils % Lymphocytes % Lymphocytes % (Manual) Monocytes % Monocytes % (Manual) Eosinophils % Eosinophils % (Manual) Basophils % Basophils % (Manual) Myelocytes % (Man) Promyelocytes % (Man) Blast Cells % (Manual) Nucleated RBC % Metamyelocytes Hypochromia Platelet Estimate Polychromasia Poikilocytosis Anisocytosis Microcytosis Macrocytosis Haptoglobin 256 PT with INR INR PTT (Actin FS) Fibrinogen Sodium Potassium Chloride Carbon Dioxide Anion Gap BUN Creatinine Est GFR (CKD-EPI)AfAm Est GFR (CKD-EPI)NonAf POC Glucometer 183 Random Glucose Calcium Total Bilirubin AST ALT Alkaline Phosphatase Total Protein Albumin Blood Type A POSITIVE Antibody Screen Negative Direct Antiglob Test Positive 01/14/20 01/14/20 01/15/20 18:00 22:20 06:30 WBC 8.1 9.8 RBC 3.01 L 3.17 L Hgb 8.6 L 9.2 L Hct 25.7 L 27.1 L MCV 85.2 85.3 MCH 28.6 29.0 MCHC 33.6 34.0 RDW 14.8 14.7 Plt Count 29 L* 39 L D MPV 9.9 10.5 Absolute Neuts (auto) 6.9 8.1 H Neutrophils % 84.9 H 82.6 Neutrophils % (Manual) 80.0 Band Neutrophils % 1.0 Lymphocytes % 3.1 L D 5.0 L D Lymphocytes % (Manual) 3.0 L D Monocytes % 4.7 5.1 Monocytes % (Manual) 4 Eosinophils % 6.9 H D 6.9 H Eosinophils % (Manual) 8.0 H D Basophils % 0.4 0.4 Basophils % (Manual) 0.0 Myelocytes % (Man) 2 D Promyelocytes % (Man) 0 Blast Cells % (Manual) 0 Nucleated RBC % 0 0 Metamyelocytes 2 D Hypochromia 0 Platelet Estimate Decreased Polychromasia 0 Poikilocytosis 0 Anisocytosis 0 Microcytosis 0 Macrocytosis 0 Haptoglobin PT with INR INR PTT (Actin FS) Fibrinogen Sodium Potassium Chloride Carbon Dioxide Anion Gap BUN Creatinine Est GFR (CKD-EPI)AfAm Est GFR (CKD-EPI)NonAf POC Glucometer 114 Random Glucose Calcium Total Bilirubin AST ALT Alkaline Phosphatase Total Protein Albumin Blood Type Antibody Screen Direct Antiglob Test 01/15/20 01/15/20 01/15/20 06:30 06:30 06:30 WBC RBC Hgb Hct MCV MCH MCHC RDW Plt Count MPV Absolute Neuts (auto) Neutrophils % Neutrophils % (Manual) Band Neutrophils % Lymphocytes % Lymphocytes % (Manual) Monocytes % Monocytes % (Manual) Eosinophils % Eosinophils % (Manual) Basophils % Basophils % (Manual) Myelocytes % (Man) Promyelocytes % (Man) Blast Cells % (Manual) Nucleated RBC % Metamyelocytes Hypochromia Platelet Estimate Polychromasia Poikilocytosis Anisocytosis Microcytosis Macrocytosis Haptoglobin PT with INR 13.80 H INR 1.17 H PTT (Actin FS) 28.2 Fibrinogen > 500.0 H Sodium 129 L Potassium 3.5 Chloride 94 L Carbon Dioxide 20 L Anion Gap 15 BUN 93.8 H Creatinine 3.9 H Est GFR (CKD-EPI)AfAm 14.07 Est GFR (CKD-EPI)NonAf 12.14 POC Glucometer Random Glucose 132 H Calcium 7.8 L Total Bilirubin 0.9 AST 20 ALT 31 Alkaline Phosphatase 166 H Total Protein 5.4 L Albumin 1.9 L Blood Type Antibody Screen Direct Antiglob Test 01/15/20 01/15/20 07:02 11:13 WBC RBC Hgb Hct MCV MCH MCHC RDW Plt Count MPV Absolute Neuts (auto) Neutrophils % Neutrophils % (Manual) Band Neutrophils % Lymphocytes % Lymphocytes % (Manual) Monocytes % Monocytes % (Manual) Eosinophils % Eosinophils % (Manual) Basophils % Basophils % (Manual) Myelocytes % (Man) Promyelocytes % (Man) Blast Cells % (Manual) Nucleated RBC % Metamyelocytes Hypochromia Platelet Estimate Polychromasia Poikilocytosis Anisocytosis Microcytosis Macrocytosis Haptoglobin PT with INR INR PTT (Actin FS) Fibrinogen Sodium Potassium Chloride Carbon Dioxide Anion Gap BUN Creatinine Est GFR (CKD-EPI)AfAm Est GFR (CKD-EPI)NonAf POC Glucometer 128 173 Random Glucose Calcium Total Bilirubin AST ALT Alkaline Phosphatase Total Protein Albumin Blood Type Antibody Screen Direct Antiglob Test ASSESSMENT/PLAN: Acute Respiratory Failure Septic Shock likely due to chronic LE wounds ARF CKD AFib on Eliquis DM HTN Chronic LE ulcers Likely OSAS / OHS Morbid Obesity DC HD access AC Mode of vent Pressors to maintain MAP > 65 Strict I & O ABX per ID Follow final cultures Hold AC Glycemic control GI prophylaxis Requires ICU monitoring Dr Andre Critical care time spent in reviewing chart, evaluating patient and formulating plan - 36 minutes.
--- NOTE | 2020-01-15 13:37 | PN ---
Physical Exam: SUBJECTIVE: Patient seen and examined at bedside- no acute events overnight; patients pressor requirements are coming down; she is now on levo 7.5; meropenem was stopped yesterday due to thrombocytopenia and she was started on tigecycline; head CT was done yesterday OBJECTIVE: Vital Signs Period Temp Pulse Resp BP Sys/Callahan Pulse Ox Last 24 Hr 98.2 F-99.3 F 85-110 20-30 95-124/48-84 95-100 GENERAL: The patient is intubated; sedated EYES: PEERLA; EOMI; no scleral icterus. NECK:no JVD; no lymphadenoapthy . LUNGS: distant breath sounds b/l HEART: RRR, S1, S2 without murmur, rub or gallop. ABDOMEN: Soft, NT/ND +BS in all 4 quadrants EXTREMITIES: b/l LE wounds, open wounds throughout both legs , w/ drainage NEUROLOGICAL: unable to assess PSYCH: Normal mood, normal affect. SKIN: Warm, dry, normal turgor, no rashes or lesions noted Laboratory Results - last 24 hr 01/14/20 01/14/20 01/14/20 10:30 12:30 16:18 WBC RBC Hgb Hct MCV MCH MCHC RDW Plt Count MPV Absolute Neuts (auto) Neutrophils % Neutrophils % (Manual) Band Neutrophils % Lymphocytes % Lymphocytes % (Manual) Monocytes % Monocytes % (Manual) Eosinophils % Eosinophils % (Manual) Basophils % Basophils % (Manual) Myelocytes % (Man) Promyelocytes % (Man) Blast Cells % (Manual) Nucleated RBC % Metamyelocytes Hypochromia Platelet Estimate Polychromasia Poikilocytosis Anisocytosis Microcytosis Macrocytosis Haptoglobin 256 PT with INR INR PTT (Actin FS) Fibrinogen Sodium Potassium Chloride Carbon Dioxide Anion Gap BUN Creatinine Est GFR (CKD-EPI)AfAm Est GFR (CKD-EPI)NonAf POC Glucometer 183 Random Glucose Calcium Total Bilirubin AST ALT Alkaline Phosphatase Total Protein Albumin Blood Type A POSITIVE Antibody Screen Negative Direct Antiglob Test Positive 01/14/20 01/14/20 01/15/20 18:00 22:20 06:30 WBC 8.1 9.8 RBC 3.01 L 3.17 L Hgb 8.6 L 9.2 L Hct 25.7 L 27.1 L MCV 85.2 85.3 MCH 28.6 29.0 MCHC 33.6 34.0 RDW 14.8 14.7 Plt Count 29 L* 39 L D MPV 9.9 10.5 Absolute Neuts (auto) 6.9 8.1 H Neutrophils % 84.9 H 82.6 Neutrophils % (Manual) 80.0 Band Neutrophils % 1.0 Lymphocytes % 3.1 L D 5.0 L D Lymphocytes % (Manual) 3.0 L D Monocytes % 4.7 5.1 Monocytes % (Manual) 4 Eosinophils % 6.9 H D 6.9 H Eosinophils % (Manual) 8.0 H D Basophils % 0.4 0.4 Basophils % (Manual) 0.0 Myelocytes % (Man) 2 D Promyelocytes % (Man) 0 Blast Cells % (Manual) 0 Nucleated RBC % 0 0 Metamyelocytes 2 D Hypochromia 0 Platelet Estimate Decreased Polychromasia 0 Poikilocytosis 0 Anisocytosis 0 Microcytosis 0 Macrocytosis 0 Haptoglobin PT with INR INR PTT (Actin FS) Fibrinogen Sodium Potassium Chloride Carbon Dioxide Anion Gap BUN Creatinine Est GFR (CKD-EPI)AfAm Est GFR (CKD-EPI)NonAf POC Glucometer 114 Random Glucose Calcium Total Bilirubin AST ALT Alkaline Phosphatase Total Protein Albumin Blood Type Antibody Screen Direct Antiglob Test 01/15/20 01/15/20 01/15/20 06:30 06:30 06:30 WBC RBC Hgb Hct MCV MCH MCHC RDW Plt Count MPV Absolute Neuts (auto) Neutrophils % Neutrophils % (Manual) Band Neutrophils % Lymphocytes % Lymphocytes % (Manual) Monocytes % Monocytes % (Manual) Eosinophils % Eosinophils % (Manual) Basophils % Basophils % (Manual) Myelocytes % (Man) Promyelocytes % (Man) Blast Cells % (Manual) Nucleated RBC % Metamyelocytes Hypochromia Platelet Estimate Polychromasia Poikilocytosis Anisocytosis Microcytosis Macrocytosis Haptoglobin PT with INR 13.80 H INR 1.17 H PTT (Actin FS) 28.2 Fibrinogen > 500.0 H Sodium 129 L Potassium 3.5 Chloride 94 L Carbon Dioxide 20 L Anion Gap 15 BUN 93.8 H Creatinine 3.9 H Est GFR (CKD-EPI)AfAm 14.07 Est GFR (CKD-EPI)NonAf 12.14 POC Glucometer Random Glucose 132 H Calcium 7.8 L Total Bilirubin 0.9 AST 20 ALT 31 Alkaline Phosphatase 166 H Total Protein 5.4 L Albumin 1.9 L Blood Type Antibody Screen Direct Antiglob Test 01/15/20 01/15/20 07:02 11:13 WBC RBC Hgb Hct MCV MCH MCHC RDW Plt Count MPV Absolute Neuts (auto) Neutrophils % Neutrophils % (Manual) Band Neutrophils % Lymphocytes % Lymphocytes % (Manual) Monocytes % Monocytes % (Manual) Eosinophils % Eosinophils % (Manual) Basophils % Basophils % (Manual) Myelocytes % (Man) Promyelocytes % (Man) Blast Cells % (Manual) Nucleated RBC % Metamyelocytes Hypochromia Platelet Estimate Polychromasia Poikilocytosis Anisocytosis Microcytosis Macrocytosis Haptoglobin PT with INR INR PTT (Actin FS) Fibrinogen Sodium Potassium Chloride Carbon Dioxide Anion Gap BUN Creatinine Est GFR (CKD-EPI)AfAm Est GFR (CKD-EPI)NonAf POC Glucometer 128 173 Random Glucose Calcium Total Bilirubin AST ALT Alkaline Phosphatase Total Protein Albumin Blood Type Antibody Screen Direct Antiglob Test Active Medications Generic Name Dose Route Start Last Admin Trade Name Joeq PRN Reason Stop Dose Admin Amino Acids 30 ml 01/13/20 22:00 01/15/20 13:11 Prosource No Carb Liquid Pkt PO 30 ml TID ALNCE Administration Atorvastatin Calcium 80 mg 01/12/20 22:00 01/14/20 22:57 Lipitor - PO 80 mg HS LANCE Administration Chlorhexidine Gluconate 1 applic 01/10/20 22:00 01/14/20 22:55 Hibiclens For Decolonization - TP 1 applic HS LANCE Administration Collagenase 1 applic 01/11/20 14:15 01/15/20 13:12 Santyl - TP 1 applic DAILY LANCE Administration Protocol Midazolam HCl 100 mg in 100 mls @ 1 mls/hr 01/10/20 22:45 01/14/20 22:57 Midazolam 100mg/100ml-0.9%Nacl IVPB 3 mg/hr TITR LANCE 3 mls/hr Administration Protocol 1 MG/HR Norepinephrine Bitartrate 8,000 mcg in 500 mls @ 18.75 mls/hr 01/11/20 03:15 01/15/20 06:36 Levophed Bag IVPB 5 mcg/min TITR LANCE 18.75 mls/hr Administration Protocol 5 MCG/MIN Fentanyl 500 mcg in 100 mls @ 20 mls/hr 01/11/20 06:16 01/15/20 10:54 Sublimaze Ivpb IVPB 75 mcg/hr TITR LANCE 15 mls/hr Administration Protocol Propofol 1,000,000 mcg in 100 mls @ 7.92 mls/hr 01/11/20 08:30 01/15/20 13:11 Diprivan - IVPB 35 mcg/kg/min TITR LANCE 27.72 mls/hr Administration Protocol 10 MCG/KG/MIN Tigecycline 50 mg/ Dextrose 100 mls @ 100 mls/hr 01/15/20 10:00 01/15/20 09:41 IVPB 100 mls/hr BID LANCE Administration Protocol Insulin Aspart 1 vial 01/10/20 22:00 01/15/20 11:21 Novolog Vial Sliding Scale - SQ 2 units ACHS LANCE Administration Protocol Mupirocin 1 applic 01/10/20 22:00 01/15/20 09:15 Bactroban Ointment (For Decolonization) - NS 01/15/20 21:59 1 applic BID LANCE Administration Pantoprazole Sodium 40 mg 01/13/20 10:00 01/15/20 09:12 Protonix Iv IVPUSH 40 mg DAILY LANCE Administration Sodium Zirconium Cyclosilicate 10 gm 01/11/20 10:00 01/15/20 09:12 Lokelma PO 10 gm DAILY LANCE Administration ASSESSMENT/PLAN: 54 yo F w/ PMH CKD , afib (Eliquis), DM, HTN, chronic LE ulcers . admitted for acute toxic metabolic encephalopathy in icu for septic shock requiring pressor support. Neuro intubated and sedated on propofol CT head reviewed, rd above. acute ischemic stroke, now with 2 "tiny" petechial hemorrhage transformation. c/w atorvastatin neuro consulted maintain SBP <140 Cardio Afib hypotensive unresponsive to fluid resuscitation s/p 3L LR HTN - c/w levophed support to maintain MAP >65. off fludrocortisone and solu cortef . today levo 7.5 - eliquis stopped -hold home HTN meds due to septic shock - cardio consulted Pulmonary -intubated - monitor and maintain Spo2>90% -rpt ABG reviewed, CXR reviewed A/C: 500///50 GI -no acute issues Endo DM -hold home PO meds -c/w ISS + BGM ACHS ID septic shock likely 2/2 cellulitis - wound culture multiple organism - dc meropenem yesterday due to thrombocyotpenia; started on tigecycline - f/u cultures -Vascular surgeon consulted for LE ulcers with pending recommendations -ID , Dr. Jaylon keith appreciated Renal Renal failure CKD -Nephro consulted. shiley removed today- no longer needs HD -Monitor I/O's -monitor electrolytes Heme / Onc - plt 25-->37 this AM , - heme consulted, Dr. wick - thrombocytopenia likely 2/2 meropenem - LDH 170, unlikely TTP , HIT FEN - NS @ 75 - monitor and replete electrolytes - feeds running LTD -cuevas - LIJ 01/10 -L fem trialysis 01/09 Ppx -DVT: on eliquClearFlow Problem List - Problems (1) ARF (acute renal failure) Code(s): N17.9 - ACUTE KIDNEY FAILURE, UNSPECIFIED Qualifiers: Acute renal failure type: unspecified Qualified Code(s): N17.9 - Acute kidney failure, unspecified (2) Hyperkalemia Code(s): E87.5 - HYPERKALEMIA (3) Septic shock Code(s): A41.9 - SEPSIS, UNSPECIFIED ORGANISM; R65.21 - SEVERE SEPSIS WITH SEPTIC SHOCK (4) NOVA (acute kidney injury) Code(s): N17.9 - ACUTE KIDNEY FAILURE, UNSPECIFIED Visit type - Emergency Visit Emergency Visit: Yes ED Registration Date: 01/10/20 Care time: The patient presented to the Emergency Department on the above date and was hospitalized for further evaluation of their emergent condition. - New Patient This patient is new to me today: No - Critical Care Critical Care patient: Yes Total Critical Care Time (in minutes): 35 Critical Care Statement: The care of this patient involved high complexity decision making to prevent further life threatening deterioration of the patient's condition and/or to evaluate & treat vital organ system(s) failure or risk of failure. ATTENDING PHYSICIAN STATEMENT I saw and evaluated the patient. I reviewed the resident's note and discussed the case with the resident. I agree with the resident's findings and plan as documented. SUBJECTIVE: OBJECTIVE: ASSESSMENT AND PLAN:
--- NOTE | 2020-01-15 15:45 | PN ---
Progress Note (short form) - Note Progress Note: remains sedated and intubated d/w hematology last night Vital Signs Period Temp Pulse Resp BP Sys/Callahan Pulse Ox Last 24 Hr 98.2 F-99.3 F 85-103 20-24 95-124/48-84 95-100 cor-rrr lungs decreased bs at bases abd soft,nt ext no edema CBC, BMP 01/15/20 06:30 01/15/20 06:30 Microbiology 01/10/20 11:10 Blood - Peripheral Venous Blood Culture - Final NO GROWTH AFTER 5 DAYS INCUBATION 01/10/20 11:10 Blood - Peripheral Venous Blood Culture - Final NO GROWTH AFTER 5 DAYS INCUBATION 01/10/20 11:10 Leg - Right Lower Gram Stain - Final 01/10/20 11:10 Leg - Right Lower Wound Culture - Final Klebsiella Pneumoniae Proteus Mirabilis Enterococcus Avium Lactose Fermenting Neg Bacilli 01/10/20 16:00 Urine - Urine - Catheterized Urine Culture - Final NO GROWTH OBTAINED a/p thrombocytopenia-improving after 1 unit platelet transfusion switched to nonbetalactam antibiotic-tygacil sepsis-resolving resp failure renal failure-improved, making urine now, hd catheter removed pen allergy CVA- f/u with neurology continue meropenem given pen allergy -day #4 Problem List - Problems (1) Septic shock Code(s): A41.9 - SEPSIS, UNSPECIFIED ORGANISM; R65.21 - SEVERE SEPSIS WITH SEPTIC SHOCK (2) ARF (acute renal failure) Code(s): N17.9 - ACUTE KIDNEY FAILURE, UNSPECIFIED Qualifiers: Acute renal failure type: unspecified Qualified Code(s): N17.9 - Acute ki dney failure, unspecified (3) Respiratory failure Code(s): J96.90 - RESPIRATORY FAILURE, UNSP, UNSP W HYPOXIA OR HYPERCAPNIA (4) Penicillin allergy Code(s): Z88.0 - ALLERGY STATUS TO PENICILLIN
--- NOTE | 2020-01-15 16:49 | PN ---
Progress Note, Physician History of Present Illness: Pt seen and examined at bedside. She remains in the ICU. She remains intubated. - Current Medication List Current Medications: Active Medications Amino Acids (Prosource No Carb Liquid Pkt) 30 ml PO TID LANCE Last Admin: 01/15/20 13:11 Dose: 30 ml Documented by: Atorvastatin Calcium (Lipitor -) 80 mg PO HS LANCE Last Admin: 01/14/20 22:57 Dose: 80 mg Documented by: Chlorhexidine Gluconate (Hibiclens For Decolonization -) 1 applic TP HS LANCE Last Admin: 01/14/20 22:55 Dose: 1 applic Documented by: Collagenase (Santyl -) 1 applic TP DAILY LANCE; Protocol Last Admin: 01/15/20 13:12 Dose: 1 applic Documented by: Midazolam HCl (Midazolam 100mg/100ml-0.9%Nacl) 100 mg in 100 mls @ 1 mls/hr IVPB TITR LANCE; Protocol Last Admin: 01/14/20 22:57 Dose: 3 mg/hr, 3 mls/hr Documented by: Norepinephrine Bitartrate (Levophed Bag) 8,000 mcg in 500 mls @ 18.75 mls/hr IVPB TITR LANCE; Protocol Last Admin: 01/15/20 15:56 Dose: 7.5 mcg/min, 28.125 mls/hr Documented by: Fentanyl (Sublimaze Ivpb) 500 mcg in 100 mls @ 20 mls/hr IVPB TITR LANCE; Protocol Last Admin: 01/15/20 15:55 Dose: 75 mcg/hr, 15 mls/hr Documented by: Propofol (Diprivan -) 1,000,000 mcg in 100 mls @ 7.92 mls/hr IVPB TITR LANCE; Protocol Last Admin: 01/15/20 13:11 Dose: 35 mcg/kg/min, 27.72 mls/hr Documented by: Tigecycline 50 mg/ Dextrose 100 mls @ 100 mls/hr IVPB BID LANCE; Protocol Last Admin: 01/15/20 09:41 Dose: 100 mls/hr Documented by: Insulin Aspart (Novolog Vial Sliding Scale -) 1 vial SQ ACHS [facility]; Protocol Last Admin: 01/15/20 11:21 Dose: 2 units Documented by: Mupirocin (Bactroban Ointment (For Decolonization) -) 1 applic NS BID [facility] Stop: 01/15/20 21:59 Last Admin: 01/15/20 09:15 Dose: 1 applic Documented by: Pantoprazole Sodium (Protonix Iv) 40 mg IVPUSH DAILY [facility] Last Admin: 01/15/20 09:12 Dose: 40 mg Documented by: Sodium Zirconium Cyclosilicate (Lokelma) 10 gm PO DAILY [facility] Last Admin: 01/15/20 09:12 Dose: 10 gm Documented by: - Objective Vital Signs: Vital Signs Temperature 99 F 01/15/20 12:00 Pulse Rate 96 H 01/15/20 16:01 Respiratory Rate 22 H 01/15/20 15:57 Blood Pressure 109/65 01/15/20 13:00 O2 Sat by Pulse Oximetry (%) 99 01/15/20 16:01 Constitutional: Yes: Calm Eyes: Yes: Conjunctiva Clear HENT: Yes: Atraumatic Cardiovascular: Yes: S1, S2 Respiratory: Yes: Mechanically Ventilated Gastrointestinal: Yes: Normal Bowel Sounds, Soft, Abdomen, Obese Genitourinary: Yes: Johnson Present Musculoskeletal: Yes: Muscle Weakness Edema: Yes Edema: LLE: 1+, RLE: 1+ Neurological: Yes: Lethargy Labs: CBC, BMP 01/15/20 06:30 01/15/20 06:30 INR, PTT INR 1.17 (0.83-1.09) H 01/15/20 06:30 Fibrinogen > 500.0 mg/dL (238-498) H 01/15/20 06:30 - ....Imaging Chest X-ray: Report Reviewed Problem List - Problems (1) NOVA (acute kidney injury) Code(s): N17.9 - ACUTE KIDNEY FAILURE, UNSPECIFIED (2) DM2 (diabetes mellitus, type 2) Code(s): E11.9 - TYPE 2 DIABETES MELLITUS WITHOUT COMPLICATIONS Qualifiers: Diabetes mellitus termite control representative insulin use: with intermediate use Diabetes mellitus complication detail: with other circulatory complications (3) Hyperkalemia Code(s): E87.5 - HYPERKALEMIA (4) Metabolic acidosis Code(s): E87.2 - ACIDOSIS Assessment/Plan Current Medications Generic Name Dose Route Start Last Admin Trade Name Freq PRN Reason Stop Dose Admin Amino Acids 30 ml 01/13/20 22:00 01/15/20 13:11 Prosource No Carb Liquid Pkt PO 30 ml TID LANCE Administration Atorvastatin Calcium 80 mg 01/12/20 22:00 01/14/20 22:57 Lipitor - PO 80 mg HS LANCE Administration Chlorhexidine Gluconate 1 applic 01/10/20 22:00 01/14/20 22:55 Hibiclens For Decolonization - TP 1 applic HS LANCE Administration Collagenase 1 applic 01/11/20 14:15 01/15/20 13:12 Santyl - TP 1 applic DAILY LANCE Administration Protocol Midazolam HCl 100 mg in 100 mls @ 1 mls/hr 01/10/20 22:45 01/14/20 22:57 Midazolam 100mg/100ml-0.9%Nacl IVPB 3 mg/hr TITR LANCE 3 mls/hr Administration Protocol 1 MG/HR Norepinephrine Bitartrate 8,000 mcg in 500 mls @ 18.75 mls/hr 01/11/20 03:15 01/15/20 15:56 Levophed Bag IVPB 7.5 mcg/min TITR LANCE 28.125 mls/hr Administration Protocol 5 MCG/MIN Fentanyl 500 mcg in 100 mls @ 20 mls/hr 01/11/20 06:16 01/15/20 15:55 Sublimaze Ivpb IVPB 75 mcg/hr TITR LANCE 15 mls/hr Administration Protocol Propofol 1,000,000 mcg in 100 mls @ 7.92 mls/hr 01/11/20 08:30 01/15/20 13:11 Diprivan - IVPB 35 mcg/kg/min TITR LANCE 27.72 mls/hr Administration Protocol 10 MCG/KG/MIN Tigecycline 50 mg/ Dextrose 100 mls @ 100 mls/hr 01/15/20 10:00 01/15/20 09:41 IVPB 100 mls/hr BID LANCE Administration Protocol Insulin Aspart 1 vial 01/10/20 22:00 01/15/20 11:21 Novolog Vial Sliding Scale - SQ 2 units ACHS LANCE Administration Protocol Mupirocin 1 applic 01/10/20 22:00 01/15/20 09:15 Bactroban Ointment (For Decolonization) - NS 01/15/20 21:59 1 applic BID LANCE Administration Pantoprazole Sodium 40 mg 01/13/20 10:00 01/15/20 09:12 Protonix Iv IVPUSH 40 mg DAILY LANCE Administration Sodium Zirconium Cyclosilicate 10 gm 01/11/20 10:00 01/15/20 09:12 Lokelma PO 10 gm DAILY LANCE Administration Impression 1. NOVA 2. hyperkalemia 3. obesity 4. DM 5. a-fib 6. HTN 7. chronic lower extremity ulcers 8. gastritis 9. sepsis 10. hyperglycemia 11. metabolic acidosis 12. peripheral vascular disease 13. acute resp failure 14. shock 15. cva 16. 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
--- NOTE | 2020-01-15 17:52 | PN.HO ---
Progress Note (short form) - Note Progress Note: Intubated/sedated/on pressors Vital Signs Period Temp Pulse Resp BP Sys/Callahan Pulse Ox Last 24 Hr 98.2 F-99.3 F 85-103 20-24 95-124/48-84 95-100 cor-rrr lungs decreased bs at bases abd soft,nt ext wrapped wounds/chronic ed CBC, BMP 01/15/20 06:30 01/15/20 06:30 a/p #Thrombocytopenia New onset-- over last 2 days ? consumptive 2/2 sepsis, but hemodynamic parameters improving ? drug induced --immune mediated Unlikely HIT -- no heparin exposure Unlikely TTP -- no evidence of hemolysis ? DIC -- but sepsis improving and coagulopathy improving Daria + but LDH nl hence unlikely active hemolysis CT head reviewed --- acute/subacute infarcts with petechial infarcts. No e/o hemorrhagic transformation Eliquis last dose 01/11 in AM Due to NOVA expect it to take 3- 5 days to completely clear /Repeat head CT stable , no changes Transfused 1 unit platelets with platelets showing no major improvement after transfusion but improved today at 39 Suspect destruction/consumption Since sepsis improving , dug induced immune destruction a possibility . Also with eosinophilia meropenem was discontinued monitor CBC
[2020-01-15] MEDS ORDERED: VASOPRESSIN 40 UNITS in SODIUM CHLORIDE 98 ML IVPB SCH (21:45)
[2020-01-15] MEDS: ATORVASTATIN CA 80 MG TABLET (FP) PO SCH (22:00)
[2020-01-15] MEDS: CHLORHEXIDINE GLUCONATE 4% CLEANSER FOR DECOLONIZATION TP SCH (22:00)
[2020-01-15] MEDS ORDERED: PT OWN MED DRAWER 7, Y5N ONE (22:22)
[2020-01-16] MEDS: CHLORHEXIDINE GLUCONATE 4% CLEANSER FOR DECOLONIZATION TP SCH (02:20)
[2020-01-16] MEDS: FENTANYL IVPB 500 MCG/100 ML BAG IVPB SCH (07:00)
[2020-01-16] MEDS: AMINO ACIDS/PROTEIN HYDROLYS 30 ML LIQUID.PKT PO SCH ×3 (07:00→22:00)
[2020-01-16] MEDS: NOREPINEPHRINE BITARTRATE 8,000 MCG/500 ML BAG IVPB SCH (07:00)
[2020-01-16 07:04] LABS: HEMATOCRIT 28.1 % (32.4-45.2); HEMOGLOBIN 9.3 GM/dL (10.7-15.3); MCH 27.9 pg (25.7-33.7); MEAN CELL VOLUME 84.7 fl (80-96); MEAN PLT VOLUME 10.5 fl (7.5-11.1); PLATELET COUNT 83 K/MM3 (134-434); RBC 3.32 M/mm3 (3.60-5.2); RDW 14.3 % (11.6-15.6); WHITE BLOOD COUNT 22.5 K/mm3 (4.0-10.0)
[2020-01-16] MEDS: INSULIN SLIDING SCALE (NOVOLOG) 1 VIAL SQ SCH ×3 (07:14→16:30)
[2020-01-16 07:34] LABS: ALBUMIN 1.8 g/dl (3.4-5.0); BILIRUBIN,TOTAL 0.5 mg/dL (0.2-1); CALCIUM 8.1 mg/dL (8.5-10.1); CREATININE 3.7 mg/dL (0.55-1.3); MAGNESIUM 2.2 mg/dL (1.8-2.4); POTASSIUM 3.8 mmol/L (3.5-5.1); TOT PROT 5.6 g/dl (6.4-8.2)
--- NOTE | 2020-01-16 09:15 | PN ---
Progress Note (short form) - Note Progress Note: Pulm/CCM SUBJECTIVE: Patient seen and examined in the ICU. Remains intubated and sedated NE @5mcq for hemodynamic support. Increasing urine output. wbc to 22, repeating blood and sputum plts improving OBJECTIVE: Vital Signs Temp 99.1 F 01/16/20 07:00 Pulse 98 H 01/16/20 08:49 Resp 22 H 01/16/20 08:49 BP 125/86 01/16/20 07:00 Pulse Ox 99 01/16/20 08:49 Intake & Output 01/15/20 01/15/20 01/16/20 11:59 23:59 11:59 Intake Total 1007 1098 1302 Output Total 800 2200 1100 Balance 207 -1102 202 Weight 145.8 kg 146.2 kg Intake: IV 130 373 3472 DIPRIVAN - 1,000,000 mcg 277 198 346 In 100 ml @ 10 MCG/KG/MIN 7.92 mls/hr IVPB TITR [facility] Rx#:[id number] LEVOPHED BAG 8,000 mcg In 270 321 553 500 ml @ 5 MCG/MIN 18.75 mls/hr IVPB TITR [facility] Rx# :[id number] MIDAZOLAM 100MG/100ML-0.9 33 32 39 %NACL 100 mg In 100 ml @ 1 MG/HR 1 mls/hr IVPB TITR [facility] Rx#:[id number] SUBLIMAZE IVPB 500 mcg In 217 209 264 100 ml @ 20 mls/hr IVPB TITR [facility] Rx#:[id number] IVPB 100 Tube Feeding 140 188 Tube Irrigant 70 150 Output: Urine 800 2200 1100 Johnson 800 2200 1100 Other: Voiding Method Indwelling Catheter Indwelling Catheter Weight Measurement Method Built in [facility] Active Medications Amino Acids (Prosource No Carb Liquid Pkt) 30 ml PO TID [facility] Last Admin: 01/16/20 07:00 Dose: 30 ml Documented by: Atorvastatin Calcium (Lipitor -) 80 mg PO [facility] Last Admin: 01/15/20 22:00 Dose: 80 mg Documented by: Chlorhexidine Gluconate (Hibiclens For Decolonization -) 1 applic TP HS [facility] Last Admin: 01/15/20 22:00 Dose: 1 applic Documented by: Collagenase (Santyl -) 1 applic TP DAILY [facility]; Protocol Last Admin: 01/15/20 13:12 Dose: 1 applic Documented by: Midazolam HCl (Midazolam 100mg/100ml-0.9%Nacl) 100 mg in 100 mls @ 1 mls/hr IVPB TITR [facility]; Protocol Last Admin: 01/14/20 22:57 Dose: 3 mg/hr, 3 mls/hr Documented by: Norepinephrine Bitartrate (Levophed Bag) 8,000 mcg in 500 mls @ 18.75 mls/hr IVPB TITR [facility]; Protocol Last Admin: 01/16/20 07:00 Dose: 11 mcg/min, 41.25 mls/hr Documented by: Fentanyl (Sublimaze Ivpb) 500 mcg in 100 mls @ 20 mls/hr IVPB TITR [facility]; Protocol Last Admin: 01/16/20 07:00 Dose: 100 mcg/hr, 20 mls/hr Documented by: Tigecycline 50 mg/ Dextrose 100 mls @ 100 mls/hr IVPB BID [facility]; Protocol Last Admin: 01/15/20 22:00 Dose: 100 mls/hr Documented by: Propofol (Diprivan -) 1,000,000 mcg in 100 mls @ 8.748 mls/hr IVPB TITR [facility]; Protocol Last Titration: 01/15/20 21:57 Dose: 30 mcg/kg/min, 26.244 mls/hr Documented by: Insulin Aspart (Novolog Vial Sliding Scale -) 1 vial SQ ACHS [facility]; Protocol Last Admin: 01/16/20 07:14 Dose: 2 units Documented by: Pantoprazole Sodium (Protonix Iv) 40 mg IVPUSH DAILY [facility] Last Admin: 01/15/20 09:12 Dose: 40 mg Documented by: Sodium Zirconium Cyclosilicate (Lokelma) 10 gm PO DAILY [facility] Last Admin: 01/15/20 09:12 Dose: 10 gm Documented by: GENERAL: Intubated and sedated HEAD: Normal with no signs of trauma. LUNGS: vented, diminished throughout, no wheezes , some paradoxing HEART: Regular rate and rhythm, S1, S2 + systolic murmur ABDOMEN: Soft, obese, nondistended, normoactive bowel sounds, no guarding EXTREMITIES: b/l LE wounds, open wounds throughout both legs , w/ drainage Laboratory Results - last 24 hr 08/21/20 08/21/20 08/21/20 06:30 06:30 11:13 WBC RBC Hgb Hct MCV MCH MCHC RDW Plt Count MPV Neutrophils % (Manual) 80.0 Band Neutrophils % 1.0 Lymphocytes % (Manual) 3.0 L D Monocytes % (Manual) 4 Eosinophils % (Manual) 8.0 H D Basophils % (Manual) 0.0 Myelocytes % (Man) 2 D Promyelocytes % (Man) 0 Blast Cells % (Manual) 0 Nucleated RBC % 0 Metamyelocytes 2 D Hypochromia 0 Platelet Estimate Decreased Polychromasia 0 Poikilocytosis 0 Anisocytosis 0 Microcytosis 0 Macrocytosis 0 Sodium Potassium Chloride Carbon Dioxide Anion Gap BUN Creatinine Est GFR (CKD-EPI)AfAm Est GFR (CKD-EPI)NonAf POC Glucometer 173 Random Glucose Calcium Phosphorus Magnesium Total Bilirubin AST ALT Alkaline Phosphatase Total Protein Albumin Stool Occult Blood Rheumatoid Arth Biomark < 10.0 01/15/20 01/15/20 01/15/20 16:40 22:19 23:50 WBC RBC Hgb Hct MCV MCH MCHC RDW Plt Count MPV Neutrophils % (Manual) Band Neutrophils % Lymphocytes % (Manual) Monocytes % (Manual) Eosinophils % (Manual) Basophils % (Manual) Myelocytes % (Man) Promyelocytes % (Man) Blast Cells % (Manual) Nucleated RBC % Metamyelocytes Hypochromia Platelet Estimate Polychromasia Poikilocytosis Anisocytosis Microcytosis Macrocytosis Sodium Potassium Chloride Carbon Dioxide Anion Gap BUN Creatinine Est GFR (CKD-EPI)AfAm Est GFR (CKD-EPI)NonAf POC Glucometer 133 155 Random Glucose Calcium Phosphorus Magnesium Total Bilirubin AST ALT Alkaline Phosphatase Total Protein Albumin Stool Occult Blood Positive Rheumatoid Arth Biomark 01/16/20 01/16/20 01/16/20 06:00 06:00 07:06 WBC 22.5 H RBC 3.32 L Hgb 9.3 L Hct 28.1 L MCV 84.7 MCH 27.9 MCHC 33.0 RDW 14.3 Plt Count 83 L D MPV 10.5 Neutrophils % (Manual) Band Neutrophils % Lymphocytes % (Manual) Monocytes % (Manual) Eosinophils % (Manual) Basophils % (Manual) Myelocytes % (Man) Promyelocytes % (Man) Blast Cells % (Manual) Nucleated RBC % Metamyelocytes Hypochromia Platelet Estimate Polychromasia Poikilocytosis Anisocytosis Microcytosis Macrocytosis Sodium 128 L Potassium 3.8 Chloride 91 L Carbon Dioxide 19 L Anion Gap 17 H BUN 109.6 H* Creatinine 3.7 H Est GFR (CKD-EPI)AfAm 15.00 Est GFR (CKD-EPI)NonAf 12.94 POC Glucometer 172 Random Glucose 162 H Calcium 8.1 L Phosphorus 10.1 H* Magnesium 2.2 Total Bilirubin 0.5 AST 15 ALT 22 Alkaline Phosphatase 169 H Total Protein 5.6 L Albumin 1.8 L Stool Occult Blood Rheumatoid Arth Biomark ASSESSMENT/PLAN: Acute Respiratory Failure Septic Shock likely due to chronic LE wounds ARF CKD AFib on Eliquis DM HTN Chronic LE ulcers Likely OSAS / OHS Morbid Obesity AC Mode of vent Pressors to maintain MAP > 65 Strict I & O ABX per ID Follow final cultures , wbc tripled, will reculture today, cont current tige Hold AC , cont to follow plts, Heme workup and recs appreciated Glycemic control GI prophylaxis Requires ICU monitoring [place] ACNP Critical care time spent in reviewing chart, evaluating patient and formulating plan - 37 minutes.
[2020-01-16] MEDS: PANTOPRAZOLE SODIUM 40 MG VIAL IVPUSH SCH (09:24)
[2020-01-16] MEDS: SODIUM ZIRCONIUM CYCLOSILICATE (LOKELMA) 5 GM PACKET PO SCH (09:24)
[2020-01-16] MEDS: COLLAGENASE CLOSTRIDIUM HIST. 30 GRAMS TUBE TP SCH (09:25)
[2020-01-16] MEDS: TIGECYCLINE 50 MG in DEXTROSE 5%-WATER 100 ML IVPB SCH ×2 (09:30→22:00)
[2020-01-16] MEDS ORDERED: PT OWN MED DRAWER 7, Y5N ONE ×2 (09:30→23:37)
[2020-01-16 09:40] LABS: BLOOD UREA NITROGEN 109.6 mg/dL (7-18); PHOSPHOROUS 10.1 mg/dL (2.5-4.9)
--- NOTE | 2020-01-16 10:52 | PN ---
Progress Note, Physician Chief Complaint: SEDATED AND INTUBATED NO ACUTE CHANGES OVERNIGHT - Current Medication List Current Medications: Active Medications Amino Acids (Prosource No Carb Liquid Pkt) 30 ml PO TID [facility] Last Admin: 01/16/20 07:00 Dose: 30 ml Documented by: Atorvastatin Calcium (Lipitor -) 80 mg PO HS [facility] Last Admin: 01/15/20 22:00 Dose: 80 mg Documented by: Chlorhexidine Gluconate (Hibiclens For Decolonization -) 1 applic TP HS [facility] Last Admin: 01/15/20 22:00 Dose: 1 applic Documented by: Collagenase (Santyl -) 1 applic TP DAILY [facility]; Protocol Last Admin: 01/16/20 09:25 Dose: 1 applic Documented by: Midazolam HCl (Midazolam 100mg/100ml-0.9%Nacl) 100 mg in 100 mls @ 1 mls/hr IVPB TITR [facility]; Protocol Last Admin: 01/14/20 22:57 Dose: 3 mg/hr, 3 mls/hr Documented by: Norepinephrine Bitartrate (Levophed Bag) 8,000 mcg in 500 mls @ 18.75 mls/hr IVPB TITR [facility]; Protocol Last Admin: 01/16/20 07:00 Dose: 11 mcg/min, 41.25 mls/hr Documented by: Fentanyl (Sublimaze Ivpb) 500 mcg in 100 mls @ 20 mls/hr IVPB TITR [facility]; Protocol Last Admin: 01/16/20 07:00 Dose: 100 mcg/hr, 20 mls/hr Documented by: Tigecycline 50 mg/ Dextrose 100 mls @ 100 mls/hr IVPB BID [facility]; Protocol Last Admin: 01/16/20 09:30 Dose: 100 mls/hr Documented by: Propofol (Diprivan -) 1,000,000 mcg in 100 mls @ 8.748 mls/hr IVPB TITR [facility]; Protocol Last Titration: 01/15/20 21:57 Dose: 30 mcg/kg/min, 26.244 mls/hr Documented by: Insulin Aspart (Novolog Vial Sliding Scale -) 1 vial SQ ACHS [facility]; Protocol Last Admin: 01/16/20 07:14 Dose: 2 units Documented by: Pantoprazole Sodium (Protonix Iv) 40 mg IVPUSH DAILY [facility] Last Admin: 01/16/20 09:24 Dose: 40 mg Documented by: Sodium Zirconium Cyclosilicate (Lokelma) 10 gm PO DAILY [facility] Last Admin: 01/16/20 09:24 Dose: 10 gm Documented by: - Objective Vital Signs: Vital Signs Temperature 99.1 F 01/16/20 07:00 Pulse Rate 98 H 01/16/20 08:49 Respiratory Rate 22 H 01/16/20 09:00 Blood Pressure 125/86 01/16/20 07:00 O2 Sat by Pulse Oximetry (%) 99 01/16/20 09:00 Constitutional: Yes: Obese, Other Cardiovascular: Yes: Pulse Irregular Respiratory: Yes: Diminished, Mechanically Ventilated Gastrointestinal: Yes: Abdomen, Obese Genitourinary: Yes: Johnson Present Edema: Yes Integumentary: Yes: Erythema, Pressure Ulcer, Rash, Venous Stasis Changes Wound/Incision: Yes: Open to air, Dressing Dry and Intact, Excoriated Neurological: Yes: Other Labs: CBC, BMP 01/16/20 06:00 01/16/20 06:00 INR, PTT INR 1.17 (0.83-1.09) H 01/15/20 06:30 Fibrinogen > 500.0 mg/dL (238-498) H 01/15/20 06:30 Problem List - Problems (1) ARF (acute renal failure) Code(s): N17.9 - ACUTE KIDNEY FAILURE, UNSPECIFIED Qualifiers: Acute renal failure type: unspecified Qualified Code(s): N17.9 - Acute kidney failure, unspecified (2) CVA (cerebral vascular accident) Code(s): I63.9 - CEREBRAL INFARCTION, UNSPECIFIED (3) Diabetic calf ulcer Code(s): E11.622 - TYPE 2 DIABETES MELLITUS WITH OTHER SKIN ULCER; L97.209 - NON-PRESSURE CHRONIC ULCER OF UNSP CALF WITH UNSP SEVERITY (4) Hyperkalemia Code(s): E87.5 - HYPERKALEMIA (5) Respiratory failure Code(s): J96.90 - RESPIRATORY FAILURE, UNSP, UNSP W HYPOXIA OR HYPERCAPNIA (6) Septic shock Code(s): A41.9 - SEPSIS, UNSPECIFIED ORGANISM; R65.21 - SEVERE SEPSIS WITH SEPTIC SHOCK (7) NOVA (acute kidney injury) Code(s): N17.9 - ACUTE KIDNEY FAILURE, UNSPECIFIED (8) Abdominal lymphadenopathy Code(s): R59.0 - LOCALIZED ENLARGED LYMPH NODES (9) Afib Code(s): I48.91 - UNSPECIFIED ATRIAL FIBRILLATION Qualifiers: Atrial fibrillation type: paroxysmal Qualified Code(s): I48.0 - Paroxysmal atrial fibrillation (10) Bilateral leg ulcer Code(s): L97.919 - NON-PRS CHRONIC ULC UNSP PRT OF R LOW LEG W UNSP SEVERITY; L97.929 - NON-PRS CHRONIC ULC UNSP PRT OF L LOW LEG W UNSP SEVERITY Qualifiers: Non-pressure ulcer stage: limited to breakdown of skin Qualified Code(s): L97.911 - Non-pressure chronic ulcer of unspecified part of right lower leg limited to breakdown of skin; L97.921 - Non-pressure chronic ulcer of unspecified part of left lower leg limited to breakdown of skin (11) Chronic cellulitis Code(s): L03.90 - CELLULITIS, UNSPECIFIED (12) Severe sepsis Code(s): A41.9 - SEPSIS, UNSPECIFIED ORGANISM; R65.20 - SEVERE SEPSIS WITHOUT SEPTIC SHOCK Assessment/Plan IV ABX PER ID CHECK WITH RENAL ON HD STATUS RESPIRATORY SUPPORT WEAN OFF VENT PER PULMONARY EXTREMELY NON-COMPLIANT PATIENT NEEDS INVESTMENT ADVISOR AND PSYCH FOR F/U AND SUPPORT GROUP DM CONTROL WOUND CARE BACTROBAN DAILY CLEAN WOUNDS APPLY DRESSINGS
--- NOTE | 2020-01-16 13:51 | PN ---
Progress Note, Physician History of Present Illness: seen and examined today. no overnight events. - Current Medication List Current Medications: Active Medications Amino Acids (Prosource No Carb Liquid Pkt) 30 ml PO TID [facility] Last Admin: 01/16/20 07:00 Dose: 30 ml Documented by: Atorvastatin Calcium (Lipitor -) 80 mg PO HS [facility] Last Admin: 01/15/20 22:00 Dose: 80 mg Documented by: Chlorhexidine Gluconate (Hibiclens For Decolonization -) 1 applic TP HS [facility] Last Admin: 01/15/20 22:00 Dose: 1 applic Documented by: Collagenase (Santyl -) 1 applic TP DAILY [facility]; Protocol Last Admin: 01/16/20 09:25 Dose: 1 applic Documented by: Midazolam HCl (Midazolam 100mg/100ml-0.9%Nacl) 100 mg in 100 mls @ 1 mls/hr IVPB TITR [facility]; Protocol Last Admin: 01/14/20 22:57 Dose: 3 mg/hr, 3 mls/hr Documented by: Norepinephrine Bitartrate (Levophed Bag) 8,000 mcg in 500 mls @ 18.75 mls/hr IVPB TITR [facility]; Protocol Last Admin: 01/16/20 07:00 Dose: 11 mcg/min, 41.25 mls/hr Documented by: Fentanyl (Sublimaze Ivpb) 500 mcg in 100 mls @ 20 mls/hr IVPB TITR [facility]; Protocol Last Admin: 01/16/20 07:00 Dose: 100 mcg/hr, 20 mls/hr Documented by: Tigecycline 50 mg/ Dextrose 100 mls @ 100 mls/hr IVPB BID [facility]; Protocol Last Admin: 01/16/20 09:30 Dose: 100 mls/hr Documented by: Propofol (Diprivan -) 1,000,000 mcg in 100 mls @ 8.748 mls/hr IVPB TITR [facility]; Protocol Last Titration: 01/15/20 21:57 Dose: 30 mcg/kg/min, 26.244 mls/hr Documented by: Insulin Aspart (Novolog Vial Sliding Scale -) 1 vial SQ ACHS [facility]; Protocol Last Admin: 01/16/20 10:56 Dose: Not Given Documented by: Pantoprazole Sodium (Protonix Iv) 40 mg IVPUSH DAILY [facility] Last Admin: 01/16/20 09:24 Dose: 40 mg Documented by: Sodium Zirconium Cyclosilicate (Lokelma) 10 gm PO DAILY [facility] Last Admin: 01/16/20 09:24 Dose: 10 gm Documented by: - Objective Vital Signs: Vital Signs Temperature 99.1 F 01/16/20 07:00 Pulse Rate 98 H 01/16/20 08:49 Respiratory Rate 22 H 01/16/20 12:13 Blood Pressure 125/86 01/16/20 07:00 O2 Sat by Pulse Oximetry (%) 100 01/16/20 12:13 Constitutional: Yes: No Distress, Calm Eyes: Yes: Conjunctiva Clear HENT: Yes: Atraumatic Cardiovascular: Yes: Regular Rate and Rhythm, S1, S2. No: Bradycardia, Tachycardia, Pulse Irregular, Bruit, JVD, Gallop, Murmur, Rub, S3, S4, Varicosities Respiratory: Yes: Regular, Diminished, Intubated, Mechanically Ventilated. No: SOB Gastrointestinal: Yes: Normal Bowel Sounds, Soft Extremities: Yes: WNL Edema: LLE: Trace, RLE: Trace Peripheral Pulses: Left Doralis Pedis: 2+, Right Dorsalis Pedis: 2+ Neurological: No: Alert, Oriented Psychiatric: No: Alert, Oriented Labs: CBC, BMP 01/16/20 06:00 01/16/20 06:00 INR, PTT INR 1.17 (0.83-1.09) H 01/15/20 06:30 Fibrinogen > 500.0 mg/dL (238-498) H 01/15/20 06:30 - ....Imaging Chest X-ray: Report Reviewed, Image Reviewed EKG: Report Reviewed, Image Reviewed Other: Report Reviewed, Image Reviewed (tele-no sig arrhythmias) Assessment/Plan 54 year old female with a history of chronic AFIB on Eliquis, HTN, DM HLD, CKD, chronic bilateral leg ulcers, prior admissions for sepsis admitted after a fall found to be hypotensive, in NOVA on CKD, septic with shock, complicated by respiratory failure, thrombocytopenia. Now found with new acute CVA right posterior frontal and parietal lobe with patechial hemorrhage. Intubated and sedated on pressors. Echo 11/14/18: TDS ef 55-60 HeadCT: Allowing for partially obscuring artifact there appears to be interval development of a 4 x 3 cm nonspecific right parieto-occipital hypodense focus in comparison to a prior CT exam of 04/24/2019. This finding could be on the basis of acute or chronic infarction versus possible infectious or neoplastic disease. A component of this appearance could also conceivably be artifactual as discuss ed above. Correlation with follow-up contrast enhanced CT or MRI is suggested. Cspine CT : No definite fracture is identified. RPT HEAD CT:Moderate to large acute/subacute infarct in the right posterior frontal and parietal lobe with suggestion of interval petechial hemorrhagic transformation, as described above. Focal acute/subacute infarct in the left occipital lobe that was not grossly seen on the prior exam. IMP: -acute CVA, chronic atrial fibrillation, while on low dose eliquis. As per neuro likely due to hypotension/hypopefusion less likely embolic. -thrombocytopenia and concern for hemorrhagic conversion thus eliquis on hold for now, resume when safe to do so as per Neurology reccs -Afib, HR adequately controlled, not requiring AV odayls blockers -echo normal EF.
--- NOTE | 2020-01-16 14:03 | PN ---
Progress Note (short form) - Note Progress Note: sedated and intubated Vital Signs Period Temp Pulse Resp BP Sys/Callahan Pulse Ox Last 24 Hr 99.0 F-99.4 F 76-108 - 89-125/52-86 93-100 cor-rrr lungs decreased bs at bases abd soft,nt ext dressings intact CBC, BMP 01/16/20 06:00 01/16/20 06:00 Microbiology 01/10/20 11:10 Blood - Peripheral Venous Blood Culture - Final NO GROWTH AFTER 5 DAYS INCUBATION 01/10/20 11:10 Blood - Peripheral Venous Blood Culture - Final NO GROWTH AFTER 5 DAYS INCUBATION 01/10/20 11:10 Leg - Right Lower Gram Stain - Final 01/10/20 11:10 Leg - Right Lower Wound Culture - Final Klebsiella Pneumoniae Proteus Mirabilis Enterococcus Avium Lactose Fermenting Neg Bacilli 01/10/20 16:00 Urine - Urine - Catheterized Urine Culture - Final NO GROWTH OBTAINED Active Medications Amino Acids (Prosource No Carb Liquid Pkt) 30 ml PO TID [facility] Last Admin: 01/16/20 07:00 Dose: 30 ml Documented by: Atorvastatin Calcium (Lipitor -) 80 mg PO HS [facility] Last Admin: 01/15/20 22:00 Dose: 80 mg Documented by: Chlorhexidine Gluconate (Hibiclens For Decolonization -) 1 applic TP HS [facility] Last Admin: 01/15/20 22:00 Dose: 1 applic Documented by: Collagenase (Santyl -) 1 applic TP DAILY [facility]; Protocol Last Admin: 01/16/20 09:25 Dose: 1 applic Documented by: Midazolam HCl (Midazolam 100mg/100ml-0.9%Nacl) 100 mg in 100 mls @ 1 mls/hr IVPB TITR [facility]; Protocol Last Admin: 01/14/20 22:57 Dose: 3 mg/hr, 3 mls/hr Documented by: Norepinephrine Bitartrate (Levophed Bag) 8,000 mcg in 500 mls @ 18.75 mls/hr IVPB TITR [facility]; Protocol Last Admin: 01/16/20 07:00 Dose: 11 mcg/min, 41.25 mls/hr Documented by: Fentanyl (Sublimaze Ivpb) 500 mcg in 100 mls @ 20 mls/hr IVPB TITR [facility]; Protocol Last Admin: 01/16/20 07:00 Dose: 100 mcg/hr, 20 mls/hr Documented by: Tigecycline 50 mg/ Dextrose 100 mls @ 100 mls/hr IVPB BID [facility]; Protocol Last Admin: 01/16/20 09:30 Dose: 100 mls/hr Documented by: Propofol (Diprivan -) 1,000,000 mcg in 100 mls @ 8.748 mls/hr IVPB TITR [facility]; Protocol Last Titration: 01/15/20 21:57 Dose: 30 mcg/kg/min, 26.244 mls/hr Documented by: Insulin Aspart (Novolog Vial Sliding Scale -) 1 vial SQ ACHS [facility]; Protocol Last Admin: 01/16/20 10:56 Dose: Not Given Documented by: Pantoprazole Sodium (Protonix Iv) 40 mg IVPUSH DAILY [facility] Last Admin: 01/16/20 09:24 Dose: 40 mg Documented by: Sodium Zirconium Cyclosilicate (Lokelma) 10 gm PO DAILY [facility] Last Admin: 01/16/20 09:24 Dose: 10 gm Documented by: a/p thrombocytopenia-improving after 1 unit platelet transfusion switched to nonbetalactam antibiotic-tygacil sepsis-resolving resp failure renal failure-improved, making urine now, hd catheter removed pen allergy CVA- f/u with neurology platelets improving'increasing wbc off steroids , repeat cultures repeat cxray Problem List - Problems (1) Septic shock Code(s): A41.9 - SEPSIS, UNSPECIFIED ORGANISM; R65.21 - SEVERE SEPSIS WITH SEPTIC SHOCK (2) ARF (acute renal failure) Code(s): N17.9 - ACUTE KIDNEY FAILURE, UNSPECIFIED Qualifiers: Acute renal failure type: unspecified Qualified Code(s): N17.9 - Acute kidney failure, unspecified (3) Respiratory failure Code(s): J96.90 - RESPIRATORY FAILURE, UNSP, UNSP W HYPOXIA OR HYPERCAPNIA (4) Penicillin allergy Code(s): Z88.0 - ALLERGY STATUS TO PENICILLIN
[2020-01-16] MEDS ORDERED: NOREPINEPHRINE BITARTRATE 4 MG/4 ML ML IV ONE (14:17)
--- NOTE | 2020-01-16 15:01 | PN ---
Progress Note (short form) - Note Progress Note: Problems 1. NOVA 2. hyperkalemia 3. obesity 4. DM 5. a-fib 6. HTN 7. chronic lower extremity ulcers 8. gastritis 9. sepsis 10. hyperglycemia 11. metabolic acidosis 12. peripheral vascular disease 13. acute resp failure 14. shock 15. cva 16. thrombocytopenia Active Medications Amino Acids (Prosource No Carb Liquid Pkt) 30 ml PO TID [facility] Last Admin: 01/16/20 14:54 Dose: 30 ml Documented by: Atorvastatin Calcium (Lipitor -) 80 mg PO HS [facility] Last Admin: 01/15/20 22:00 Dose: 80 mg Documented by: Chlorhexidine Gluconate (Hibiclens For Decolonization -) 1 applic TP HS [facility] Last Admin: 01/15/20 22:00 Dose: 1 applic Documented by: Collagenase (Santyl -) 1 applic TP DAILY [facility]; Protocol Last Admin: 01/16/20 09:25 Dose: 1 applic Documented by: Midazolam HCl (Midazolam 100mg/100ml-0.9%Nacl) 100 mg in 100 mls @ 1 mls/hr IVPB TITR [facility]; Protocol Last Admin: 01/14/20 22:57 Dose: 3 mg/hr, 3 mls/hr Documented by: Norepinephrine Bitartrate (Levophed Bag) 8,000 mcg in 500 mls @ 18.75 mls/hr IVPB TITR [facility]; Protocol Last Admin: 01/16/20 07:00 Dose: 11 mcg/min, 41.25 mls/hr Documented by: Fentanyl (Sublimaze Ivpb) 500 mcg in 100 mls @ 20 mls/hr IVPB TITR [facility]; Protocol Last Admin: 01/16/20 07:00 Dose: 100 mcg/hr, 20 mls/hr Documented by: Tigecycline 50 mg/ Dextrose 100 mls @ 100 mls/hr IVPB BID [facility]; Protocol Last Admin: 01/16/20 09:30 Dose: 100 mls/hr Documented by: Propofol (Diprivan -) 1,000,000 mcg in 100 mls @ 8.748 mls/hr IVPB TITR [facility]; Protocol Last Titration: 01/15/20 21:57 Dose: 30 mcg/kg/min, 26.244 mls/hr Documented by: Insulin Aspart (Novolog Vial Sliding Scale -) 1 vial SQ ACHS [facility]; Protocol Last Admin: 01/16/20 10:56 Dose: Not Given Documented by: Pantoprazole Sodium (Protonix Iv) 40 mg IVPUSH DAILY [facility] Last Admin: 01/16/20 09:24 Dose: 40 mg Documented by: Sodium Zirconium Cyclosilicate (Lokelma) 10 gm PO DAILY [facility] Last Admin: 01/16/20 09:24 Dose: 10 gm Documented by: Last Vital Signs Temp Pulse Resp BP Pulse Ox 99.1 F 98 H 22 H 125/86 100 01/16/20 07:00 01/16/20 08:49 01/16/20 12:13 01/16/20 07:00 01/16/20 12:13 CBC, BMP 01/16/20 06:00 01/16/20 06:00 IMP- s/p NOVA s/p HD now off Acute Resp Failure Hemodynamically stable today Plan- monitor urine out and renal function
[2020-01-16] MEDS: ATORVASTATIN CA 80 MG TABLET (FP) PO SCH (22:00)
[2020-01-17] MEDS: INSULIN SLIDING SCALE (NOVOLOG) 1 VIAL SQ SCH ×5 (01:40→21:54)
[2020-01-17 05:47] LABS: ARTERIAL BLD GAS O2 SATURATION 94.5 mmHg (95-98); ARTERIAL BLOOD GAS BASE EXCESS -8.5 mmol/L (-2-2); ARTERIAL BLOOD GAS PO2 79.1 mmHg (80-100)
[2020-01-17 05:52] LABS: ALLENS TEST POSITIVE; ARTERIAL BLOOD GAS pH 7.291 (7.350-7.450)
[2020-01-17 05:53] LABS: VENT MODE A/C; VENT RATE 22
[2020-01-17] MEDS: AMINO ACIDS/PROTEIN HYDROLYS 30 ML LIQUID.PKT PO SCH ×3 (05:58→21:43)
[2020-01-17 06:45] LABS: HEMATOCRIT 27.3 % (32.4-45.2); MCH 27.8 pg (25.7-33.7); MEAN CELL VOLUME 84.3 fl (80-96); MEAN PLT VOLUME 10.1 fl (7.5-11.1); PLATELET COUNT 133 K/MM3 (134-434); RBC 3.24 M/mm3 (3.60-5.2); RDW 14.6 % (11.6-15.6); WHITE BLOOD COUNT 25.5 K/mm3 (4.0-10.0)
[2020-01-17] MEDS: FENTANYL IVPB 500 MCG/100 ML BAG IVPB SCH (07:00)
[2020-01-17 07:05] LABS: CALCIUM 7.8 mg/dL (8.5-10.1); CREATININE 3.4 mg/dL (0.55-1.3); POTASSIUM 3.6 mmol/L (3.5-5.1)
[2020-01-17] MEDS: SODIUM ZIRCONIUM CYCLOSILICATE (LOKELMA) 5 GM PACKET PO SCH (09:32)
--- NOTE | 2020-01-17 09:32 | PN ---
Progress Note, Physician Chief Complaint: REQUIRED VENT SUPPORT FULL AC OVERNIGHT LEVOPHED INCREASED - Current Medication List Current Medications: Active Medications Amino Acids (Prosource No Carb Liquid Pkt) 30 ml PO TID [facility] Last Admin: 01/17/20 05:58 Dose: 30 ml Documented by: Atorvastatin Calcium (Lipitor -) 80 mg PO HS [facility] Last Admin: 01/16/20 22:00 Dose: 80 mg Documented by: Chlorhexidine Gluconate (Hibiclens For Decolonization -) 1 applic TP HS [facility] Last Admin: 01/16/20 02:20 Dose: 1 applic Documented by: Collagenase (Santyl -) 1 applic TP DAILY [facility]; Protocol Last Admin: 01/16/20 09:25 Dose: 1 applic Documented by: Midazolam HCl (Midazolam 100mg/100ml-0.9%Nacl) 100 mg in 100 mls @ 1 mls/hr IVPB TITR [facility]; Protocol Last Admin: 01/14/20 22:57 Dose: 3 mg/hr, 3 mls/hr Documented by: Norepinephrine Bitartrate (Levophed Bag) 8,000 mcg in 500 mls @ 18.75 mls/hr IVPB TITR [facility]; Protocol Last Titration: 01/17/20 05:56 Dose: 13 mcg/min, 48.75 mls/hr Documented by: Fentanyl (Sublimaze Ivpb) 500 mcg in 100 mls @ 20 mls/hr IVPB TITR [facility]; Protocol Last Admin: 01/16/20 07:00 Dose: 100 mcg/hr, 20 mls/hr Documented by: Tigecycline 50 mg/ Dextrose 100 mls @ 100 mls/hr IVPB BID [facility]; Protocol Last Admin: 01/16/20 22:00 Dose: 100 mls/hr Documented by: Propofol (Diprivan -) 1,000,000 mcg in 100 mls @ 8.748 mls/hr IVPB TITR [facility]; Protocol Last Titration: 01/17/20 04:45 Dose: 30 mcg/kg/min, 26.244 mls/hr Documented by: Insulin Aspart (Novolog Vial Sliding Scale -) 1 vial SQ ACHS [facility]; Protocol Last Admin: 01/17/20 06:20 Dose: 2 units Documented by: Pantoprazole Sodium (Protonix Iv) 40 mg IVPUSH DAILY [facility] Last Admin: 01/16/20 09:24 Dose: 40 mg Documented by: Sodium Zirconium Cyclosilicate (Lokelma) 10 gm PO DAILY [facility] Last Admin: 01/16/20 09:24 Dose: 10 gm Documented by: - Objective Vital Signs: Vital Signs Temperature 99.8 F H 01/17/20 06:00 Pulse Rate 97 H 01/17/20 08:45 Respiratory Rate 22 H 01/17/20 08:25 Blood Pressure 84/51 L 01/17/20 08:00 O2 Sat by Pulse Oximetry (%) 96 01/17/20 08:45 Constitutional: Yes: Moderate Distress Cardiovascular: Yes: Pulse Irregular Respiratory: Yes: Mechanically Ventilated Gastrointestinal: Yes: Soft Genitourinary: Yes: Johnson Present Musculoskeletal: Yes: Muscle Weakness Integumentary: Yes: Erythema, Pressure Ulcer Wound/Incision: Yes: Dressing Dry and Intact, Excoriated Neurological: Yes: Pre-Existing Deficit Labs: CBC, BMP 01/17/20 06:00 01/17/20 06:00 INR, PTT INR 1.17 (0.83-1.09) H 01/15/20 06:30 Fibrinogen > 500.0 mg/dL (238-498) H 01/15/20 06:30 Problem List - Problems (1) ARF (acute renal failure) Code(s): N17.9 - ACUTE KIDNEY FAILURE, UNSPECIFIED Qualifiers: Acute renal failure type: unspecified Qualified Code(s): N17.9 - Acute kidney failure, unspecified (2) CVA (cerebral vascular accident) Code(s): I63.9 - CEREBRAL INFARCTION, UNSPECIFIED (3) Diabetic calf ulcer Code(s): E11.622 - TYPE 2 DIABETES MELLITUS WITH OTHER SKIN ULCER; L97.209 - NON-PRESSURE CHRONIC ULCER OF UNSP CALF WITH UNSP SEVERITY (4) Hyperkalemia Code(s): E87.5 - HYPERKALEMIA (5) Respiratory failure Code(s): J96.90 - RESPIRATORY FAILURE, UNSP, UNSP W HYPOXIA OR HYPERCAPNIA (6) Septic shock Code(s): A41.9 - SEPSIS, UNSPECIFIED ORGANISM; R65.21 - SEVERE SEPSIS WITH SEPTIC SHOCK (7) NOVA (acute kidney injury) Code(s): N17.9 - ACUTE KIDNEY FAILURE, UNSPECIFIED (8) Abdominal lymphadenopathy Code(s): R59.0 - LOCALIZED ENLARGED LYMPH NODES (9) Afib Code(s): I48.91 - UNSPECIFIED ATRIAL FIBRILLATION Qualifiers: Atrial fibrillation type: paroxysmal Qualified Code(s): I48.0 - Paroxysmal atrial fibrillation (10) Bilateral leg ulcer Code(s): L97.919 - NON-PRS CHRONIC ULC UNSP PRT OF R LOW LEG W UNSP SEVERITY; L97.929 - NON-PRS CHRONIC ULC UNSP PRT OF L LOW LEG W UNSP SEVERITY Qualifiers: Non-pressure ulcer stage: limited to breakdown of skin Qualified Code(s): L97.911 - Non-pressure chronic ulcer of unspecified part of right lower leg limited to breakdown of skin; L97.921 - Non-pressure chronic ulcer of unspecified part of left lower leg limited to breakdown of skin (11) Chronic cellulitis Code(s): L03.90 - CELLULITIS, UNSPECIFIED (12) Severe sepsis Code(s): A41.9 - SEPSIS, UNSPECIFIED ORGANISM; R65.20 - SEVERE SEPSIS WITHOUT SEPTIC SHOCK Assessment/Plan IV ABX PER ID CHECK WITH RENAL ON HD STATUS RESPIRATORY SUPPORT WEAN OFF VENT PER PULMONARY EXTREMELY NON-COMPLIANT PATIENT NEEDS DOCKWORKER AND PSYCH FOR F/U AND SUPPORT GROUP DM CONTROL WOUND CARE BACTROBAN DAILY CLEAN WOUNDS APPLY DRESSINGS
[2020-01-17] MEDS: PANTOPRAZOLE SODIUM 40 MG VIAL IVPUSH SCH (09:33)
[2020-01-17] MEDS: COLLAGENASE CLOSTRIDIUM HIST. 30 GRAMS TUBE TP SCH (09:33)
[2020-01-17] MEDS: TIGECYCLINE 50 MG in DEXTROSE 5%-WATER 100 ML IVPB SCH (09:33)
[2020-01-17 09:56] LABS: BLOOD UREA NITROGEN 130.4 mg/dL (7-18); PHOSPHOROUS 9.9 mg/dL (2.5-4.9)
--- NOTE | 2020-01-17 11:13 | PN ---
Progress Note (short form) - Note Progress Note: sedated and intubated loose stools noted unable to obtain sputum culture yesterday- no sputum production Vital Signs Period Temp Pulse Resp BP Sys/Callahan Pulse Ox Last 24 Hr 98.9 F-99.8 F 78-97 16-22 84-115/51-67 90-100 cor-rrr lungs decreased bs at bases abd soft,nt ext ulcers clean bilateral LE left IJ CBC, BMP 01/17/20 06:00 01/17/20 06:00 Microbiology 01/16/20 10:02 Blood - Peripheral Venous Blood Culture - Preliminary NO GROWTH OBTAINED AFTER 24 HOURS, INCUBATION TO CONTINUE FOR 4 DAYS. 01/16/20 10:02 Blood - Peripheral Venous Blood Culture - Preliminary NO GROWTH OBTAINED AFTER 24 HOURS, INCUBATION TO CONTINUE FOR 4 DAYS. 01/10/20 11:10 Blood - Peripheral Venous Blood Culture - Final NO GROWTH AFTER 5 DAYS INCUBATION 01/10/20 11:10 Blood - Peripheral Venous Blood Culture - Final NO GROWTH AFTER 5 DAYS INCUBATION 01/10/20 11:10 Leg - Right Lower Gram Stain - Final 01/10/20 11:10 Leg - Right Lower Wound Culture - Final Klebsiella Pneumoniae Proteus Mirabilis Enterococcus Avium Lactose Fermenting Neg Bacilli 01/10/20 16:00 Urine - Urine - Catheterized Urine Culture - Final NO GROWTH OBTAINED cxray c/w congestion a/p leukocytosis- despite tygacil, will d/c, check stool cdiff, cputum culture if possible , f/u blood cultures, consider line change thrombocytopenia-resolved resp failure renal failure-improved, making urine now, hd catheter removed pen allergy CVA- f/u with neurology Problem List - Problems (1) Septic shock Code(s): A41.9 - SEPSIS, UNSPECIFIED ORGANISM; R65.21 - SEVERE SEPSIS WITH SE PTIC SHOCK (2) ARF (acute renal failure) Code(s): N17.9 - ACUTE KIDNEY FAILURE, UNSPECIFIED Qualifiers: Acute renal failure type: unspecified Qualified Code(s): N17.9 - Acute kidney failure, unspecified (3) Respiratory failure Code(s): J96.90 - RESPIRATORY FAILURE, UNSP, UNSP W HYPOXIA OR HYPERCAPNIA (4) Penicillin allergy Code(s): Z88.0 - ALLERGY STATUS TO PENICILLIN
[2020-01-17] MEDS ORDERED: NOREPINEPHRINE BITARTRATE 4 MG/4 ML ML IV ONE (13:39)
--- NOTE | 2020-01-17 15:06 | PN ---
Progress Note, Physician History of Present Illness: no overnight events. - Current Medication List Current Medications: Active Medications Amino Acids (Prosource No Carb Liquid Pkt) 30 ml PO TID LANCE Last Admin: 01/17/20 13:52 Dose: 30 ml Documented by: Atorvastatin Calcium (Lipitor -) 80 mg PO HS LANCE Last Admin: 01/16/20 22:00 Dose: 80 mg Documented by: Chlorhexidine Gluconate (Hibiclens For Decolonization -) 1 applic TP HS [facility] Last Admin: 01/16/20 02:20 Dose: 1 applic Documented by: Collagenase (Santyl -) 1 applic TP DAILY [facility]; Protocol Last Admin: 01/17/20 09:33 Dose: 1 applic Documented by: Midazolam HCl (Midazolam 100mg/100ml-0.9%Nacl) 100 mg in 100 mls @ 1 mls/hr IVPB TITR [facility]; Protocol Last Admin: 01/14/20 22:57 Dose: 3 mg/hr, 3 mls/hr Documented by: Norepinephrine Bitartrate (Levophed Bag) 8,000 mcg in 500 mls @ 18.75 mls/hr IVPB TITR [facility]; Protocol Last Titration: 01/17/20 05:56 Dose: 13 mcg/min, 48.75 mls/hr Documented by: Fentanyl (Sublimaze Ivpb) 500 mcg in 100 mls @ 20 mls/hr IVPB TITR [facility]; Protocol Last Admin: 01/17/20 07:00 Dose: 100 mcg/hr, 20 mls/hr Documented by: Propofol (Diprivan -) 1,000,000 mcg in 100 mls @ 8.748 mls/hr IVPB TITR [facility]; Protocol Last Titration: 01/17/20 04:45 Dose: 30 mcg/kg/min, 26.244 mls/hr Documented by: Insulin Aspart (Novolog Vial Sliding Scale -) 1 vial SQ ACHS [facility]; Protocol Last Admin: 01/17/20 12:40 Dose: 4 units Documented by: Pantoprazole Sodium (Protonix Iv) 40 mg IVPUSH DAILY [facility] Last Admin: 01/17/20 09:33 Dose: 40 mg Documented by: Sodium Zirconium Cyclosilicate (Lokelma) 10 gm PO DAILY [facility] Last Admin: 01/17/20 09:32 Dose: 10 gm Documented by: - Objective Vital Signs: Vital Signs Temperature 99.8 F H 08/23/20 06:00 Pulse Rate 95 H 01/17/20 09:00 Respiratory Rate 22 H 01/17/20 11:56 Blood Pressure 103/57 L 01/17/20 09:00 O2 Sat by Pulse Oximetry (%) 98 01/17/20 11:57 Constitutional: Yes: No Distress, Calm HENT: Yes: Atraumatic Cardiovascular: Yes: Pulse Irregular, S1, S2. No: Regular Rate and Rhythm, Bradycardia, Tachycardia, Bruit, JVD, Gallop, Murmur, Rub, S3, S4, Varicosities Respiratory: Yes: Regular, Diminished, Intubated, Mechanically Ventilated. No: Rales, Rhonchi, SOB, Wheezes Gastrointestinal: Yes: Normal Bowel Sounds Peripheral Pulses WNL: Yes Neurological: No: Alert, Oriented Psychiatric: No: Alert, Oriented Labs: CBC, BMP 01/17/20 06:00 01/17/20 06:00 INR, PTT INR 1.17 (0.83-1.09) H 01/15/20 06:30 Fibrinogen > 500.0 mg/dL (238-498) H 01/15/20 06:30 - ....Imaging Chest X-ray: Report Reviewed, Image Reviewed EKG: Report Reviewed, Image Reviewed Other: Report Reviewed, Image Reviewed (tele-AFib, HR adequately controlled) Assessment/Plan 54 year old female with a history of chronic AFIB on Eliquis, HTN, DM HLD, CKD, chronic bilateral leg ulcers, prior admissions for sepsis admitted after a fall found to be hypotensive, in NOVA on CKD, septic with shock, complicated by respiratory failure, thrombocytopenia. Now found with new acute CVA right posterior frontal and parietal lobe with patechial hemorrhage. Intubated and sedated on pressors. Echo 11/14/18: TDS ef 55-60 HeadCT: Allowing for partially obscuring artifact there appears to be interval development of a 4 x 3 cm nonspecific right parieto-occipital hypodense focus in comparison to a prior CT exam of 04/24/2019. This finding could be on the basis of acute or chronic infarction versus possible infectious or neoplastic disease. A component of this appearance could also conceivably be artifactual as discussed above. Correlation with follow-up contrast enhanced CT or MRI is suggested. Cspine CT : No definite fracture is identified. RPT HEAD CT:Moderate to large acute/subacute infarct in the right posterior frontal and parietal lobe with suggestion of interval petechial hemorrhagic transformation, as described above. Focal acute/subacute infarct in the left occipital lobe that was not grossly seen on the prior exam. IMP: -acute CVA, chronic atrial fibrillation, while on low dose eliquis. As per neuro likely due to hypotension/hypopefusion less likely embolic. -thrombocytopenia and concern for hemorrhagic conversion thus eliquis on hold for now, resume when safe to do so as per Neurology reccs -Afib, HR adequately controlled, not requiring AV odalys blockers -echo normal EF -dose Lasix only prn.
[2020-01-17] MEDS: VASOPRESSIN 40 UNITS in SODIUM CHLORIDE 98 ML IVPB SCH (15:40)
[2020-01-17 16:09] LABS: DRVVT - 63.7 sec (0.0-47.0); dRVVT MIX 45.3 sec (0.0-47.0)
[2020-01-17] MEDS ORDERED: FENTANYL NS IVPB 500 MCG/100 ML BAG IVPB ONE (16:14)
--- NOTE | 2020-01-17 17:08 | PN ---
Progress Note (short form) - Note Progress Note: Problems 1. NOVA 2. hyperkalemia 3. obesity 4. DM 5. a-fib 6. HTN 7. chronic lower extremity ulcers 8. gastritis 9. sepsis 10. hyperglycemia 11. metabolic acidosis 12. peripheral vascular disease 13. acute resp failure 14. shock 15. cva 16. thrombocytopenia Active Medications Amino Acids (Prosource No Carb Liquid Pkt) 30 ml PO TID [facility] Last Admin: 01/17/20 13:52 Dose: 30 ml Documented by: Atorvastatin Calcium (Lipitor -) 80 mg PO HS [facility] Last Admin: 01/16/20 22:00 Dose: 80 mg Documented by: Chlorhexidine Gluconate (Hibiclens For Decolonization -) 1 applic TP HS [facility] Last Admin: 01/16/20 02:20 Dose: 1 applic Documented by: Collagenase (Santyl -) 1 applic TP DAILY [facility]; Protocol Last Admin: 01/17/20 09:33 Dose: 1 applic Documented by: Midazolam HCl (Midazolam 100mg/100ml-0.9%Nacl) 100 mg in 100 mls @ 1 mls/hr IVPB TITR [facility]; Protocol Last Admin: 01/14/20 22:57 Dose: 3 mg/hr, 3 mls/hr Documented by: Norepinephrine Bitartrate (Levophed Bag) 8,000 mcg in 500 mls @ 18.75 mls/hr IVPB TITR [facility]; Protocol Last Titration: 01/17/20 05:56 Dose: 13 mcg/min, 48.75 mls/hr Documented by: Fentanyl (Sublimaze Ivpb) 500 mcg in 100 mls @ 20 mls/hr IVPB TITR [facility]; Protocol Last Admin: 01/17/20 07:00 Dose: 100 mcg/hr, 20 mls/hr Documented by: Propofol (Diprivan -) 1,000,000 mcg in 100 mls @ 8.748 mls/hr IVPB TITR [facility]; Protocol Last Titration: 01/17/20 04:45 Dose: 30 mcg/kg/min, 26.244 mls/hr Documented by: Vasopressin 40 units/ Sodium (Chloride) 100 mls @ 5 mls/hr IVPB ASDIR [facility]; Protocol Last Admin: 01/17/20 15:40 Dose: 2 units/hr, 5 mls/hr Documented by: Insulin Aspart (Novolog Vial Sliding Scale -) 1 vial SQ ACHS [facility]; Protocol Last Admin: 01/17/20 12:40 Dose: 4 units Documented by: Pantoprazole Sodium (Protonix Iv) 40 mg IVPUSH DAILY [facility] Last Admin: 01/17/20 09:33 Dose: 40 mg Documented by: Sodium Zirconium Cyclosilicate (Lokelma) 10 gm PO DAILY [facility] Last Admin: 01/17/20 09:32 Dose: 10 gm Documented by: Last Vital Signs Temp Pulse Resp BP Pulse Ox 99.8 F H 84 22 H 113/46 L 97 01/17/20 06:00 01/17/20 15:40 01/17/20 15:58 01/17/20 15:40 01/17/20 15:58 CBC, BMP 01/17/20 06:00 01/17/20 06:00 CBC, BMP 01/16/20 06:00 01/16/20 06:00 IMP- s/p NOVA- renal function improving Hyponatremia improving Metabolic acidosis s/p HD now off Acute Resp Failure Hemodynamically stable today Plan- monitor urine out and renal function
--- NOTE | 2020-01-17 20:08 | PN ---
Progress Note (short form) - Note Progress Note: Pulm/CCM Patient seen and examined in the ICU. Remains intubated and sedated NE for hemodynamic support, now vasopressin added. CXR with worsening in pleural effusions L>R Vital Signs Period Temp Pulse Resp BP Sys/Callahan Pulse Ox Last 24 Hr 98.9 F-99.8 F 74-97 16- 84-147/46-87 89-100 Intake & Output 01/14/20 01/15/20 01/16/20 01/17/20 23:59 23:59 23:59 23:59 Intake Total 2791 2105 2890.8 2822 Output Total 2050 3000 3100 6550 Balance 741 895 -209.2 -3728 Weight 140.2 kg 145.8 kg 146.2 kg 139.2 kg Active Medications Amino Acids (Prosource No Carb Liquid Pkt) 30 ml PO TID [facility] Last Admin: 01/17/20 13:52 Dose: 30 ml Documented by: Atorvastatin Calcium (Lipitor -) 80 mg PO HS [facility] Last Admin: 01/16/20 22:00 Dose: 80 mg Documented by: Chlorhexidine Gluconate (Hibiclens For Decolonization -) 1 applic TP HS [facility] Last Admin: 01/16/20 02:20 Dose: 1 applic Documented by: Collagenase (Santyl -) 1 applic TP DAILY [facility]; Protocol Last Admin: 01/17/20 09:33 Dose: 1 applic Documented by: Midazolam HCl (Midazolam 100mg/100ml-0.9%Nacl) 100 mg in 100 mls @ 1 mls/hr IVPB TITR [facility]; Protocol Last Admin: 01/14/20 22:57 Dose: 3 mg/hr, 3 mls/hr Documented by: Norepinephrine Bitartrate (Levophed Bag) 8,000 mcg in 500 mls @ 18.75 mls/hr IVPB TITR [facility]; Protocol Last Titration: 01/17/20 05:56 Dose: 13 mcg/min, 48.75 mls/hr Documented by: Fentanyl (Sublimaze Ivpb) 500 mcg in 100 mls @ 20 mls/hr IVPB TITR [facility]; Protocol Last Admin: 01/17/20 07:00 Dose: 100 mcg/hr, 20 mls/hr Documented by: Propofol (Diprivan -) 1,000,000 mcg in 100 mls @ 8.748 mls/hr IVPB TITR [facility]; Protocol Last Titration: 01/17/20 04:45 Dose: 30 mcg/kg/min, 26.244 mls/hr Documented by: Vasopressin 40 units/ Sodium (Chloride) 100 mls @ 5 mls/hr IVPB ASDIR [facility]; Protocol Last Admin: 01/17/20 15:40 Dose: 2 units/hr, 5 mls/hr Documented by: Insulin Aspart (Novolog Vial Sliding Scale -) 1 vial SQ ACHS [facility]; Protocol Last Admin: 01/17/20 17:21 Dose: 2 units Documented by: Pantoprazole Sodium (Protonix Iv) 40 mg IVPUSH DAILY [facility] Last Admin: 01/17/20 09:33 Dose: 40 mg Documented by: Sodium Zirconium Cyclosilicate (Lokelma) 10 gm PO DAILY [facility] Last Admin: 01/17/20 09:32 Dose: 10 gm Documented by: GENERAL: Intubated and sedated HEAD: Normal with no signs of trauma. LUNGS: vented, diminished throughout, no wheezes , some paradoxing HEART: Regular rate and rhythm, S1, S2 + systolic murmur ABDOMEN: Soft, obese, nondistended, normoactive bowel sounds, no guarding EXTREMITIES: b/l LE wounds, open wounds throughout both legs , w/ drainage CBC, BMP 01/17/20 06:00 01/17/20 06:00 ASSESSMENT/PLAN: Acute Respiratory Failure Septic Shock likely due to chronic LE wounds ARF CKD AFib on Eliquis DM HTN Chronic LE ulcers Likely OSAS / OHS Morbid Obesity -Afebrile -AC Mode of vent -Pressors to maintain MAP > 65 -Strict I & O -Net negative -Appreciate renal recs -No Abx at this time as per ID -Follow final cultures -Hold AC , cont to follow plts, Heme workup and recs appreciated -Glycemic control -PPI for PUD ppx -Requires ICU monitoring Marlene Crowell ACNP [id number]
[2020-01-17] MEDS ORDERED: FUROSEMIDE 40 MG/4 ML INJECTABLE VIAL IVPUSH ONE (20:59)
[2020-01-17] MEDS: CHLORHEXIDINE GLUCONATE 4% CLEANSER FOR DECOLONIZATION TP SCH (21:42)
[2020-01-17] MEDS: ATORVASTATIN CA 80 MG TABLET (FP) PO SCH (21:42)
--- NOTE | 2020-01-17 22:24 | PN.HO ---
Progress Note (short form) - Note Progress Note: Intubated/sedated/on pressors Vital Signs - 24 hr 01/17/20 01/17/20 01/17/20 07:00 08:00 08:25 Temperature Pulse Rate 97 H 90 Respiratory 22 H 16 22 H Rate Blood Pressure 104/62 84/51 L O2 Sat by Pulse 95 90 L 96 Oximetry (%) 01/17/20 01/17/20 01/17/20 08:45 09:00 10:00 Temperature 99 F Pulse Rate 97 H 95 H 96 H Respiratory 22 H 22 H Rate Blood Pressure 103/57 L 106/62 O2 Sat by Pulse 96 97 97 Oximetry (%) 01/17/20 01/17/20 01/17/20 11:00 11:56 11:57 Temperature 98.9 F Pulse Rate 90 Respiratory 22 H 22 H Rate Blood Pressure 101/56 L O2 Sat by Pulse 98 98 98 Oximetry (%) 01/17/20 01/17/20 01/17/20 12:00 13:00 14:00 Temperature Pulse Rate 89 92 H 88 Respiratory 22 H 22 H 22 H Rate Blood Pressure 97/52 L 102/63 94/46 L O2 Sat by Pulse 89 L 92 L 99 Oximetry (%) 01/17/20 01/17/20 01/17/20 15:00 15:40 15:58 Temperature Pulse Rate 83 84 Respiratory 22 H 22 H Rate Blood Pressure 107/56 L 113/46 L O2 Sat by Pulse 97 97 Oximetry (%) 01/17/20 01/17/20 01/17/20 16:00 17:00 18:00 Temperature Pulse Rate 77 78 74 Respiratory 22 H 22 H 22 H Rate Blood Pressure 129/87 139/86 147/65 O2 Sat by Pulse 98 100 100 Oximetry (%) 01/17/20 01/17/20 01/17/20 19:00 20:00 20:28 Temperature Pulse Rate 72 79 Respiratory 22 H 22 H 22 H Rate Blood Pressure 135/80 145/79 O2 Sat by Pulse 100 100 100 Oximetry (%) 01/17/20 01/17/20 01/17/20 20:34 21:00 22:00 Temperature 99 F Pulse Rate 73 71 Respiratory 22 H 22 H 22 H Rate Blood Pressure 133/51 L 123/70 O2 Sat by Pulse 100 100 99 Oximetry (%) 01/17/20 01/18/20 01/18/20 23:00 00:00 00:30 Temperature Pulse Rate 108 H 80 Respiratory 22 H 22 H 22 H Rate Blood Pressure 79/47 L 97/63 O2 Sat by Pulse 100 100 Oximetry (%) 01/18/20 01/18/20 01/18/20 01:00 02:00 03:00 Temperature 99.4 F Pulse Rate 77 80 80 Respiratory 22 H 22 H 22 H Rate Blood Pressure 109/62 103/70 101/67 O2 Sat by Pulse 100 100 100 Oximetry (%) 01/18/20 01/18/20 01/18/20 04:00 04:30 05:00 Temperature 99.1 F Pulse Rate 78 82 Respiratory 22 H 22 H 22 H Rate Blood Pressure 102/57 L 100/58 L O2 Sat by Pulse 100 100 100 Oximetry (%) 01/18/20 06:00 Temperature Pulse Rate 77 Respiratory 22 H Rate Blood Pressure 103/67 O2 Sat by Pulse 100 Oximetry (%) cor-rrr lungs decreased bs at bases abd soft,nt ext wrapped wounds/chronic stasis dermatitis CBC, BMP 01/15/20 06:30 01/15/20 06:30 a/p #Thrombocytopenia New onset-- over last 2 days ? consumptive 2/2 sepsis, but hemodynamic parameters improving ? drug induced --immune mediated Unlikely HIT -- no heparin exposure Unlikely TTP -- no evidence of hemolysis ? DIC -- but sepsis improving and coagulopathy improving Daria + but LDH nl hence unlikely active hemolysis CT head reviewed --- acute/subacute infarcts with petechial infarcts. No e/o hemorrhagic transformation Eliquis last dose 01/11 in AM Due to NOVA expect it to take 3- 5 days to completely clear /Repeat head CT stable , no changes Transfused 1 unit platelets with platelets showing no major improvement after transfusion but improved today at 39 Suspect destruction/consumption Since sepsis improving , dug induced immune destruction a possibility . Also with eosinophilia meropenem was discontinued LAC/HIT neg. Platelet count much improved continue to moitor
[2020-01-18 06:14] LABS: ARTERIAL BLD GAS O2 SATURATION 99.2 mmHg (95-98); ARTERIAL BLOOD GAS PO2 170.3 mmHg (80-100); ARTERIAL BLOOD GAS pH 7.393 (7.350-7.450)
[2020-01-18 06:23] LABS: ALLENS TEST POSITIVE
[2020-01-18 06:24] LABS: VENT MODE A/C; VENT RATE 22
[2020-01-18] MEDS: INSULIN SLIDING SCALE (NOVOLOG) 1 VIAL SQ SCH ×4 (06:34→21:43)
[2020-01-18] MEDS: AMINO ACIDS/PROTEIN HYDROLYS 30 ML LIQUID.PKT PO SCH ×3 (06:34→21:08)
[2020-01-18 07:13] LABS: BASO % 0.7 % (0-2.0); EOS % 3.2 % (0-4.5); HEMATOCRIT 29.9 % (32.4-45.2); HEMOGLOBIN 9.8 GM/dL (10.7-15.3); LYMPH % 5.5 % (8-40); MCH 27.5 pg (25.7-33.7); MCHC 32.7 g/dl (32.0-36.0); MEAN CELL VOLUME 84.1 fl (80-96); MEAN PLT VOLUME 10.2 fl (7.5-11.1); MONO % 6.9 % (3.8-10.2); NEUT % 83.7 % (42.8-82.8); PLATELET COUNT 214 K/MM3 (134-434); RBC 3.55 M/mm3 (3.60-5.2); RDW 14.4 % (11.6-15.6); WHITE BLOOD COUNT 22.8 K/mm3 (4.0-10.0)
[2020-01-18 07:56] LABS: ALBUMIN 1.8 g/dl (3.4-5.0); CALCIUM 8.6 mg/dL (8.5-10.1); POTASSIUM 3.3 mmol/L (3.5-5.1)
[2020-01-18] MEDS: MIDAZOLAM IN 0.9 % SOD.CHLORID 100 MG/100 ML PLAST..BAG IVPB SCH (08:00)
[2020-01-18 08:02] LABS: BILIRUBIN,TOTAL 0.5 mg/dL (0.2-1); CREATININE 2.8 mg/dL (0.55-1.3)
--- NOTE | 2020-01-18 08:29 | PN ---
Progress Note, Physician Chief Complaint: NO CHANGES OVERNIGHT STILL INTUBATED AND REQUIRING BP SUPPORT - Current Medication List Current Medications: Active Medications Amino Acids (Prosource No Carb Liquid Pkt) 30 ml PO TID LANCE Last Admin: 01/18/20 06:34 Dose: 30 ml Documented by: Atorvastatin Calcium (Lipitor -) 80 mg PO HS LANCE Last Admin: 01/17/20 21:42 Dose: 80 mg Documented by: Chlorhexidine Gluconate (Hibiclens For Decolonization -) 1 applic TP HS LANCE Last Admin: 01/17/20 21:42 Dose: 1 applic Documented by: Collagenase (Santyl -) 1 applic TP DAILY [facility]; Protocol Last Admin: 01/17/20 09:33 Dose: 1 applic Documented by: Norepinephrine Bitartrate (Levophed Bag) 8,000 mcg in 500 mls @ 18.75 mls/hr IVPB TITR [facility]; Protocol Last Titration: 01/17/20 05:56 Dose: 13 mcg/min, 48.75 mls/hr Documented by: Propofol (Diprivan -) 1,000,000 mcg in 100 mls @ 8.748 mls/hr IVPB TITR [facility]; Protocol Last Titration: 01/17/20 04:45 Dose: 30 mcg/kg/min, 26.244 mls/hr Documented by: Vasopressin 40 units/ Sodium (Chloride) 100 mls @ 5 mls/hr IVPB ASDIR [facility]; Protocol Last Admin: 01/17/20 15:40 Dose: 2 units/hr, 5 mls/hr Documented by: Insulin Aspart (Novolog Vial Sliding Scale -) 1 vial SQ ACHS [facility]; Protocol Last Admin: 01/18/20 06:34 Dose: 2 units Documented by: Pantoprazole Sodium (Protonix Iv) 40 mg IVPUSH DAILY [facility] Last Admin: 01/17/20 09:33 Dose: 40 mg Documented by: Sodium Zirconium Cyclosilicate (Lokelma) 10 gm PO DAILY [facility] Last Admin: 01/17/20 09:32 Dose: 10 gm Documented by: - Objective Vital Signs: Vital Signs Temperature 99.1 F 01/18/20 05:00 Pulse Rate 77 01/18/20 06:00 Respiratory Rate 22 H 01/18/20 06:00 Blood Pressure 103/67 01/18/20 06:00 O2 Sat by Pulse Oximetry (%) 100 01/18/20 06:00 Constitutional: Yes: Moderate Distress Cardiovascular: Yes: Tachycardia Respiratory: Yes: Mechanically Ventilated Gastrointestinal: Yes: Abdomen, Obese, Distention Genitourinary: Yes: Johnson Present Musculoskeletal: Yes: Muscle Weakness Edema: Yes Integumentary: Yes: Pressure Ulcer Neurological: Yes: Pre-Existing Deficit Labs: CBC, BMP 01/18/20 06:00 01/18/20 06:00 INR, PTT INR 1.17 (0.83-1.09) H 01/15/20 06:30 Fibrinogen > 500.0 mg/dL (238-498) H 01/15/20 06:30 Problem List - Problems (1) ARF (acute renal failure) Code(s): N17.9 - ACUTE KIDNEY FAILURE, UNSPECIFIED Qualifiers: Acute renal failure type: unspecified Qualified Code(s): N17.9 - Acute kidney failure, unspecified (2) CVA (cerebral vascular accident) Code(s): I63.9 - CEREBRAL INFARCTION, UNSPECIFIED (3) Diabetic calf ulcer Code(s): E11.622 - TYPE 2 DIABETES MELLITUS WITH OTHER SKIN ULCER; L97.209 - NON-PRESSURE CHRONIC ULCER OF UNSP CALF WITH UNSP SEVERITY (4) Hyperkalemia Code(s): E87.5 - HYPERKALEMIA (5) Respiratory failure Code(s): J96.90 - RESPIRATORY FAILURE, UNSP, UNSP W HYPOXIA OR HYPERCAPNIA (6) Septic shock Code(s): A41.9 - SEPSIS, UNSPECIFIED ORGANISM; R65.21 - SEVERE SEPSIS WITH SEPTI C SHOCK (7) NOVA (acute kidney injury) Code(s): N17.9 - ACUTE KIDNEY FAILURE, UNSPECIFIED (8) Abdominal lymphadenopathy Code(s): R59.0 - LOCALIZED ENLARGED LYMPH NODES (9) Afib Code(s): I48.91 - UNSPECIFIED ATRIAL FIBRILLATION Qualifiers: Atrial fibrillation type: paroxysmal Qualified Code(s): I48.0 - Paroxysmal atrial fibrillation (10) Bilateral leg ulcer Code(s): L97.919 - NON-PRS CHRONIC ULC UNSP PRT OF R LOW LEG W UNSP SEVERITY; L97.929 - NON-PRS CHRONIC ULC UNSP PRT OF L LOW LEG W UNSP SEVERITY Qualifiers: Non-pressure ulcer stage: limited to breakdown of skin Qualified Code(s): L97.911 - Non-pressure chronic ulcer of unspecified part of right lower leg limited to breakdown of skin; L97.921 - Non-pressure chronic ulcer of unspecified part of left lower leg limited to breakdown of skin (11) Chronic cellulitis Code(s): L03.90 - CELLULITIS, UNSPECIFIED (12) Severe sepsis Code(s): A41.9 - SEPSIS, UNSPECIFIED ORGANISM; R65.20 - SEVERE SEPSIS WITHOUT SEPTIC SHOCK Assessment/Plan IV ABX PER ID CHECK WITH RENAL ON HD STATUS RESPIRATORY SUPPORT WEAN OFF VENT PER PULMONARY EXTREMELY NON-COMPLIANT PATIENT NEEDS RN ENT AND PSYCH FOR F/U AND SUPPORT GROUP DM CONTROL WOUND CARE BACTROBAN DAILY CLEAN WOUNDS APPLY DRESSINGS
[2020-01-18 08:36] LABS: PHOSPHOROUS 8.8 mg/dL (2.5-4.9)
[2020-01-18 08:40] LABS: BLOOD UREA NITROGEN 119.8 mg/dL (7-18)
[2020-01-18] MEDS ORDERED: KCL 10 MEQ IVPB 10 MEQ/100 ML INFUS.BAG IVPB SCH (09:00)
[2020-01-18] MEDS: SODIUM ZIRCONIUM CYCLOSILICATE (LOKELMA) 5 GM PACKET PO SCH (09:31)
[2020-01-18] MEDS: PANTOPRAZOLE SODIUM 40 MG VIAL IVPUSH SCH (09:31)
[2020-01-18] MEDS: COLLAGENASE CLOSTRIDIUM HIST. 30 GRAMS TUBE TP SCH (09:32)
--- NOTE | 2020-01-18 10:12 | PN ---
Progress Note (short form) - Note Progress Note: remains intubated and sedated Vital Signs Period Temp Pulse Resp BP Sys/Callahan Pulse Ox Last 24 Hr 98.9 F-99.4 F 71-108 22-22 79-147/46-87 89-100 cor-rrr left IJ cvp lungs decreased bs at bases abd soft,nt ext dressings intact CBC, BMP 01/18/20 06:00 01/18/20 06:00 Microbiology 01/17/20 12:50 Sputum - Endotrachea Suction/Ventilator Gram Stain - Final 01/16/20 10:02 Blood - Peripheral Venous Blood Culture - Preliminary NO GROWTH OBTAINED AFTER 24 HOURS, INCUBATION TO CONTINUE FOR 4 DAYS. 01/16/20 10:02 Blood - Peripheral Venous Blood Culture - Preliminary NO GROWTH OBTAINED AFTER 24 HOURS, INCUBATION TO CONTINUE FOR 4 DAYS. 01/10/20 11:10 Blood - Peripheral Venous Blood Culture - Final NO GROWTH AFTER 5 DAYS INCUBATION 01/10/20 11:10 Blood - Peripheral Venous Blood Culture - Final NO GROWTH AFTER 5 DAYS INCUBATION 01/10/20 11:10 Leg - Right Lower Gram Stain - Final 01/10/20 11:10 Leg - Right Lower Wound Culture - Final Klebsiella Pneumoniae Proteus Mirabilis Enterococcus Avium Lactose Fermenting Neg Bacilli 01/10/20 16:00 Urine - Urine - Catheterized Urine Culture - Final NO GROWTH OBTAINED a/p leukocytosis- antibiotics d/ilda yesterday stool cdiff pending resp failure renal failure improved chronic venous stasis ulcers improved d/w 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
--- NOTE | 2020-01-18 12:28 | PN ---
Progress Note, Physician History of Present Illness: This is a 54 year old female with a PMH of AFIB on Eliquis, [place], DM HLD, CKD, chronic bilateral leg ulcers, prior admissions for sepsis admitted after a fall found to be hypotensive, in NOVA on CKD, septic with shock, complicated by respiratory failure, thrombocytopenia. Now found with new acute CVA right posterior frontal and parietal lobe with patechial hemorrhage. Intubated and sedated on pressors. Echo 11/14/18: TDS ef 55-[address]:Moderate to large acute/subacute infarct in the right posterior frontal and parietal lobe with suggestion of interval petechial hemorrhagic transformation, as described above. Focal acute/subacute infarct in the left occipital lobe that was not grossly seen on the prior exam. As per neurology, the CVA was likely due to hypotension/hypopefusion less likely embolic. The AFIB heart rates at adequately controlled. Echocardiogram 01/14/2020 Normal LV size and function EF 60% -65% . - Current Medication List Current Medications: Active Medications Amino Acids (Prosource No Carb Liquid Pkt) 30 ml PO TID LANCE Last Admin: 01/18/20 06:34 Dose: 30 ml Documented by: Atorvastatin Calcium (Lipitor -) 80 mg PO HS LANCE Last Admin: 01/17/20 21:42 Dose: 80 mg Documented by: Chlorhexidine Gluconate (Hibiclens For Decolonization -) 1 applic TP HS LANCE Last Admin: 01/17/20 21:42 Dose: 1 applic Documented by: Collagenase (Santyl -) 1 applic TP DAILY [facility]; Protocol Last Admin: 01/18/20 09:32 Dose: 1 applic Documented by: Norepinephrine Bitartrate (Levophed Bag) 8,000 mcg in 500 mls @ 18.75 mls/hr IVPB TITR [facility]; Protocol Last Titration: 01/18/20 08:00 Dose: 20 mcg/min, 75 mls/hr Documented by: Propofol (Diprivan -) 1,000,000 mcg in 100 mls @ 8.748 mls/hr IVPB TITR [facility]; Protocol Last Titration: 01/18/20 08:00 Dose: 30 mcg/kg/min, 26.244 mls/hr Documented by: Vasopressin 40 units/ Sodium (Chloride) 100 mls @ 5 mls/hr IVPB ASDIR [facility]; Protocol Last Titration: 01/18/20 08:00 Dose: 0 units/hr, 0 mls/hr Documented by: Insulin Aspart (Novolog Vial Sliding Scale -) 1 vial SQ ACHS [facility]; Protocol Last Admin: 01/18/20 06:34 Dose: 2 units Documented by: Pantoprazole Sodium (Protonix Iv) 40 mg IVPUSH DAILY [facility] Last Admin: 01/18/20 09:31 Dose: 40 mg Documented by: Sodium Zirconium Cyclosilicate (Lokelma) 10 gm PO DAILY [facility] Last Admin: 01/18/20 09:31 Dose: 10 gm Documented by: - Objective Vital Signs: Vital Signs Temperature 99.1 F 01/18/20 05:00 Pulse Rate 80 01/18/20 09:00 Respiratory Rate 22 H 01/18/20 09:00 Blood Pressure 99/57 L 01/18/20 09:00 O2 Sat by Pulse Oximetry (%) 99 01/18/20 09:00 Constitutional: Yes: No Distress HENT: Yes: Tonsillar Exudate Cardiovascular: Yes: Pulse Irregular, S1, S2 Respiratory: Yes: Mechanically Ventilated Gastrointestinal: Yes: Soft Extremities: Yes: Other (Venous stasis ulcers) Labs: CBC, BMP 01/18/20 06:00 01/18/20 06:00 INR, PTT INR 1.17 (0.83-1.09) H 01/15/20 06:30 Fibrinogen > 500.0 mg/dL (238-498) H 01/15/20 06:30 Assessment/Plan CVA As per neuro likely due to hypotension/hypopefusion less likely embolic. Holding apixaban secondary to thrombocytopenia and concern for hemorrhagic conversion of the CVA AFIB rates are well controlled EF on echo is normal Continue high intensity statin therapy
[2020-01-18 13:55] LABS: OVALOCYTE 1+
[2020-01-18 13:56] LABS: PLATELET ESTIMATE ADEQUATE
[2020-01-18] MEDS ORDERED: HEPARIN NA (PORCINE) 5,000 UNITS/ML 1ML VIAL SQ SCH (14:00)
[2020-01-18] MEDS: PROPOFOL 1,000,000 MCG/100 ML VIAL IVPB SCH ×2 (14:17→21:03)
--- NOTE | 2020-01-18 14:21 | PN ---
Teaching Attending Note Name of Resident: Terrie Yee ATTENDING PHYSICIAN STATEMENT I saw and evaluated the patient. I reviewed the resident's note and discussed the case with the resident. I agree with the resident's findings and plan as documented. SUBJECTIVE: Pt seen and examined in the ICU. Remains intubated, sedated on levophed gtt. No fevers. Good urine output. OBJECTIVE: Vital Signs Period Temp Pulse Resp BP Sys/Callahan Pulse Ox Last 24 Hr 99 F-99.4 F 71-108 22-22 79-147/46-87 97-100 Intake & Output 01/15/20 01/16/20 01/17/20 01/18/20 23:59 23:59 23:59 23:59 Intake Total 2105 2890.8 2822 1501 Output Total 3000 3100 6550 4000 Balance -895 -209.2 -8350 -2670 Weight 145.8 kg 146.2 kg 139.2 kg 138.7 kg Gen: intubated, sedated Heart: RRR Lung: scattered rhonchi Abd: soft, nontender Ext: wrapped CBC, BMP 01/18/20 06:00 01/18/20 06:00 Active Medications Amino Acids (Prosource No Carb Liquid Pkt) 30 ml PO TID LANCE Last Admin: 01/18/20 06:34 Dose: 30 ml Documented by: Atorvastatin Calcium (Lipitor -) 80 mg PO HS LANCE Last Admin: 01/17/20 21:42 Dose: 80 mg Documented by: Chlorhexidine Gluconate (Hibiclens For Decolonization -) 1 applic TP HS LANCE Last Admin: 01/17/20 21:42 Dose: 1 applic Documented by: Collagenase (Santyl -) 1 applic TP DAILY [facility]; Protocol Last Admin: 01/18/20 09:32 Dose: 1 applic Documented by: Heparin Sodium (Porcine) (Heparin -) 5,000 unit SQ TID LANCE Norepinephrine Bitartrate (Levophed Bag) 8,000 mcg in 500 mls @ 18.75 mls/hr IVPB TITR [facility]; Protocol Last Titration: 01/18/20 08:00 Dose: 20 mcg/min, 75 mls/hr Documented by: Propofol (Diprivan -) 1,000,000 mcg in 100 mls @ 8.748 mls/hr IVPB TITR [facility]; Protocol Last Titration: 01/18/20 08:00 Dose: 30 mcg/kg/min, 26.244 mls/hr Documented by: Vasopressin 40 units/ Sodium (Chloride) 100 mls @ 5 mls/hr IVPB ASDIR [facility]; Protocol Last Titration: 01/18/20 08:00 Dose: 0 units/hr, 0 mls/hr Documented by: Insulin Aspart (Novolog Vial Sliding Scale -) 1 vial SQ ACHS [facility]; Protocol Last Admin: 01/18/20 06:34 Dose: 2 units Documented by: Pantoprazole Sodium (Protonix Iv) 40 mg IVPUSH DAILY [facility] Last Admin: 01/18/20 09:31 Dose: 40 mg Documented by: Sodium Zirconium Cyclosilicate (Lokelma) 10 gm PO DAILY [facility] Last Admin: 01/18/20 09:31 Dose: 10 gm Documented by: ASSESSMENT AND PLAN: Acute Hypoxic Respiratory Failure Cellulitis Septic Shock Acute on Chronic Renal Failure Atrial Fibrillation HTN DM Morbid Obesity BARRY/OHS - monitoring off antibiotics - change central line - titrate pressors to maintain MAP>65 - monitor urine output, creatinine - titrate FiO2, PEEP to keep SpO2 >90% - wound care - daily sedation vacations to assess mental status - enteral feeds - DVT/GI prophylaxis - continue ICU monitoring critical care time spent in reviewing chart, evaluating patient and formulating plan 35 min
[2020-01-18] MEDS ORDERED: PT OWN MED DRAWER 7, Y5N ONE (15:16)
[2020-01-18] MEDS ORDERED: FENTANYL NS IVPB 500 MCG/100 ML BAG IVPB ONE (16:36)
--- NOTE | 2020-01-18 17:18 | PN ---
Progress Note, Physician History of Present Illness: Pt seen and examined at bedside. She remains in the ICU. She remains intubated. - Current Medication List Current Medications: Active Medications Amino Acids (Prosource No Carb Liquid Pkt) 30 ml PO TID LANCE Last Admin: 01/18/20 14:18 Dose: 30 ml Documented by: Atorvastatin Calcium (Lipitor -) 80 mg PO HS LANCE Last Admin: 01/17/20 21:42 Dose: 80 mg Documented by: Chlorhexidine Gluconate (Hibiclens For Decolonization -) 1 applic TP HS [facility] Last Admin: 01/17/20 21:42 Dose: 1 applic Documented by: Collagenase (Santyl -) 1 applic TP DAILY [facility]; Protocol Last Admin: 01/18/20 09:32 Dose: 1 applic Documented by: Heparin Sodium (Porcine) (Heparin -) 5,000 unit SQ TID [facility] Last Admin: 01/18/20 14:19 Dose: 5,000 unit Documented by: Norepinephrine Bitartrate (Levophed Bag) 8,000 mcg in 500 mls @ 18.75 mls/hr IVPB TITR [facility]; Protocol Last Titration: 01/18/20 08:00 Dose: 20 mcg/min, 75 mls/hr Documented by: Propofol (Diprivan -) 1,000,000 mcg in 100 mls @ 8.748 mls/hr IVPB TITR [facility]; Protocol Last Admin: 01/18/20 14:17 Dose: 30 mcg/kg/min, 26.244 mls/hr Documented by: Vasopressin 40 units/ Sodium (Chloride) 100 mls @ 5 mls/hr IVPB ASDIR [facility]; Protocol Last Titration: 01/18/20 08:00 Dose: 0 units/hr, 0 mls/hr Documented by: Insulin Aspart (Novolog Vial Sliding Scale -) 1 vial SQ ACHS [facility]; Protocol Last Admin: 01/18/20 16:59 Dose: 4 units Documented by: Pantoprazole Sodium (Protonix Iv) 40 mg IVPUSH DAILY [facility] Last Admin: 01/18/20 09:31 Dose: 40 mg Documented by: Sodium Zirconium Cyclosilicate (Lokelma) 10 gm PO DAILY [facility] Last Admin: 01/18/20 09:31 Dose: 10 gm Documented by: Vancomycin HCl (Vancomycin Oral Solution) 250 mg PO Q6HPO [facility] - Objective Vital Signs: Vital Signs Temperature 99.1 F 01/18/20 05:00 Pulse Rate 80 01/18/20 09:00 Respiratory Rate 22 H 01/18/20 16:10 Blood Pressure 99/57 L 01/18/20 09:00 O2 Sat by Pulse Oximetry (%) 96 01/18/20 16:10 Constitutional: Yes: Calm Eyes: Yes: Conjunctiva Clear HENT: Yes: Atraumatic Neck: Yes: Supple Cardiovascular: Yes: S1, S2 Respiratory: Yes: Mechanically Ventilated Gastrointestinal: Yes: Soft, Abdomen, Obese Genitourinary: Yes: Johnson Present Musculoskeletal: Yes: Muscle Weakness Edema: Yes Edema: LLE: Trace, RLE: Trace Neurological: Yes: Lethargy Labs: CBC, BMP 01/18/20 06:00 01/18/20 06:00 INR, PTT INR 1.17 (0.83-1.09) H 01/15/20 06:30 Fibrinogen > 500.0 mg/dL (238-498) H 01/15/20 06:30 - ....Imaging Chest X-ray: Report Reviewed Problem List - Problems (1) NOVA (acute kidney injury) Code(s): N17.9 - ACUTE KIDNEY FAILURE, UNSPECIFIED (2) DM2 (diabetes mellitus, type 2) Code(s): E11.9 - TYPE 2 DIABETES MELLITUS WITHOUT COMPLICATIONS Qualifiers: Diabetes mellitus shelter insulin use: with assistant terminal manager use Diabetes [place] itus complication detail: with other circulatory complications (3) Hyperkalemia Code(s): E87.5 - HYPERKALEMIA (4) Metabolic acidosis Code(s): E87.2 - ACIDOSIS Assessment/Plan Current Medications Generic Name Dose Route Start Last Admin Trade Name Freq PRN Reason Stop Dose Admin Amino Acids 30 ml 01/13/20 22:00 01/18/20 14:18 Prosource No Carb Liquid Pkt PO 30 ml TID LANCE Administration Atorvastatin Calcium 80 mg 01/12/20 22:00 01/17/20 21:42 Lipitor - PO 80 mg HS LANCE Administration Chlorhexidine Gluconate 1 applic 01/10/20 22:00 01/17/20 21:42 Hibiclens For Decolonization - TP 1 applic HS LANCE Administration Collagenase 1 applic 01/11/20 14:15 01/18/20 09:32 Santyl - TP 1 applic DAILY [facility] Administration Protocol Heparin Sodium (Porcine) 5,000 unit 01/18/20 14:00 01/18/20 14:19 Heparin - SQ 5,000 unit TID LANCE Administration Norepinephrine Bitartrate 8,000 mcg in 500 mls @ 18.75 mls/hr 01/11/20 03:15 01/18/20 08:00 Levophed Bag IVPB 20 mcg/min TITR LANCE 75 mls/hr Titration Protocol 5 MCG/MIN Propofol 1,000,000 mcg in 100 mls @ 8.748 mls/hr 01/15/20 18:30 01/18/20 14:17 Diprivan - IVPB 30 mcg/kg/min TITR LANCE 26.244 mls/hr Administration Protocol 10 MCG/KG/MIN Vasopressin 40 units/ Sodium 100 mls @ 5 mls/hr 01/17/20 15:15 01/18/20 08:00 Chloride IVPB 0 units/hr ASDIR LANCE 0 mls/hr Titration Protocol 2 UNITS/HR Insulin Aspart 1 vial 01/10/20 22:00 01/18/20 16:59 Novolog Vial Sliding Scale - SQ 4 units ACHS [facility] Administration Protocol Pantoprazole Sodium 40 mg 01/13/20 10:00 01/18/20 09:31 Protonix Iv IVPUSH 40 mg DAILY [facility] Administration Sodium Zirconium Cyclosilicate 10 gm 01/11/20 10:00 01/18/20 09:31 Lokelma PO 10 gm DAILY [facility] Administration Vancomycin HCl 250 mg 01/18/20 18:00 Vancomycin Oral Solution PO Q6HPO [facility] Impression 1. NOVA 2. hyperkalemia 3. obesity 4. DM 5. a-fib 6. HTN 7. chronic lower extremity ulcers 8. gastritis 9. sepsis 10. hyperglycemia 11. metabolic acidosis 12. peripheral vascular disease 13. acute resp failure 14. shock 15. cva 16. thrombocytopenia Plan - d/c lokelma - renal function improving - cont vent support - pt making urine - no indication for hd - cont feeds - monitor volume status - wound care - cont abx - discussed with icu team - prognosis guarded
[2020-01-18] MEDS ORDERED: POTASSIUM CHLORIDE ORAL LIQUID 20 MEQ/15 ML PO ONE (17:19)
[2020-01-18] MEDS: VANCOMYCIN 250 MG/5 ML ORAL SOLUTION PO SCH (17:46)
[2020-01-18] MEDS: VASOPRESSIN 40 UNITS in SODIUM CHLORIDE 98 ML IVPB SCH (17:47)
[2020-01-18] MEDS: NOREPINEPHRINE BITARTRATE 8,000 MCG/500 ML BAG IVPB SCH ×2 (17:54→23:00)
--- NOTE | 2020-01-18 18:58 | PN ---
Physical Exam: SUBJECTIVE: Patient seen and examined bedside. Sedated, intubated. OBJECTIVE: Vital Signs Temperature 99.1 F 01/18/20 05:00 Pulse Rate 80 01/18/20 09:00 Respiratory Rate 22 H 01/18/20 16:10 Blood Pressure 99/57 L 01/18/20 09:00 O2 Sat by Pulse Oximetry (%) 96 01/18/20 16:10 GENERAL: The patient is sedated, intubated HEAD: Normal with no signs of trauma. EYES: PERRL ENT: intubated NECK: L IJ LUNGS: CTA BL HEART: irregularly irregular, S1, S2 ABDOMEN: Obese, soft, nontender, nondistended EXTREMITIES: BL edema NEUROLOGICAL: unable to assess SKIN:BL LE ulcers bandaged Intake & Output 01/15/20 01/16/20 01/17/20 01/18/20 23:59 23:59 23:59 23:59 Intake Total 2105 2890.8 2822 1501 Output Total 3000 3100 6550 5400 Balance -895 -209.2 -1791 -9714 Weight 321 lb 6.943 oz 322 lb 5.053 oz 306 lb 14.135 oz 305 lb 12.498 oz Laboratory Results - last 24 hr 01/16/20 01/17/20 01/18/20 06:00 21:52 05:30 WBC RBC Hgb Hct MCV MCH MCHC RDW Plt Count MPV Absolute Neuts (auto) Total Counted Neutrophils % Neutrophils % (Manual) Band Neutrophils % Lymphocytes % Lymphocytes % (Manual) Monocytes % Monocytes % (Manual) Eosinophils % Eosinophils % (Manual) Basophils % Nucleated RBC % Platelet Estimate Platelet Comment Spherocytes Ovalocytes Anticoagulation Therapy No Result Required. Puncture Site Right radial Patient Temperature No Result Required. ABG pH 7.393 ABG pCO2 30.10 L ABG pO2 170.3 H ABG HCO3 17.9 L ABG O2 Sat (Measured) 99.2 H ABG O2 Content No Result Required. ABG Base Excess -6.0 L Kwesi Test Positive Patient On Oxygen Yes O2 Delivery Device Vent Oxygen Flow Rate 50% Vent Mode A/c Vent Rate 22 Mechanical Rate Yes PEEP 10.0 Pressure Support Vent 500 Sodium Potassium Chloride Carbon Dioxide Anion Gap BUN Creatinine Est GFR (CKD-EPI)AfAm Est GFR (CKD-EPI)NonAf POC Glucometer 207 Random Glucose Calcium Phosphorus Magnesium Total Bilirubin AST ALT Alkaline Phosphatase Total Protein Albumin Anti-Plt GP Ib/IX Negative Anti-Plt GP IV Negative GP Ia/IIa Negative Plasma Anti-Plt IIb/IIIa Negative HLA Class I Antibody Negative 01/18/20 01/18/20 01/18/20 06:00 06:00 06:12 WBC 22.8 H RBC 3.55 L Hgb 9.8 L Hct 29.9 L MCV 84.1 MCH 27.5 MCHC 32.7 RDW 14.4 Plt Count 214 D MPV 10.2 Absolute Neuts (auto) 19.1 H Total Counted 100 Neutrophils % 83.7 H Neutrophils % (Manual) 77.0 Band Neutrophils % 3.0 Lymphocytes % 5.5 L Lymphocytes % (Manual) 8.0 D Monocytes % 6.9 Monocytes % (Manual) 7 Eosinophils % 3.2 Eosinophils % (Manual) 3.0 Basophils % 0.7 Nucleated RBC % 0 Platelet Estimate Adequate Platelet Comment Giant platelets Spherocytes 1+ Ovalocytes 1+ Anticoagulation Therapy Puncture Site Patient Temperature ABG pH ABG pCO2 ABG pO2 ABG HCO3 ABG O2 Sat (Measured) ABG O2 Content ABG Base Excess Kwesi Test Patient On Oxygen O2 Delivery Device Oxygen Flow Rate Vent Mode Vent Rate Mechanical Rate PEEP Pressure Support Vent Sodium 134 L Potassium 3.3 L Chloride 97 L Carbon Dioxide 21 Anion Gap 16 BUN 119.8 H* Creatinine 2.8 H Est GFR (CKD-EPI)AfAm 21.01 Est GFR (CKD-EPI)NonAf 18.12 POC Glucometer 198 Random Glucose 194 H Calcium 8.6 Phosphorus 8.8 H Magnesium 2.0 Total Bilirubin 0.5 AST 12 L ALT 18 Alkaline Phosphatase 184 H Total Protein 6.0 L Albumin 1.8 L Anti-Plt GP Ib/IX Anti-Plt GP IV GP Ia/IIa Plasma Anti-Plt IIb/IIIa HLA Class I Antibody 01/18/20 01/18/20 13:55 16:51 WBC RBC Hgb Hct MCV MCH MCHC RDW Plt Count MPV Absolute Neuts (auto) Total Counted Neutrophils % Neutrophils % (Manual) Band Neutrophils % Lymphocytes % Lymphocytes % (Manual) Monocytes % Monocytes % (Manual) Eosinophils % Eosinophils % (Manual) Basophils % Nucleated RBC % Platelet Estimate Platelet Comment Spherocytes Ovalocytes Anticoagulation Therapy Puncture Site Patient Temperature ABG pH ABG pCO2 ABG pO2 ABG HCO3 ABG O2 Sat (Measured) ABG O2 Content ABG Base Excess Kwesi Test Patient On Oxygen O2 Delivery Device Oxygen Flow Rate Vent Mode Vent Rate Mechanical Rate PEEP Pressure Support Vent Sodium Potassium Chloride Carbon Dioxide Anion Gap BUN Creatinine Est GFR (CKD-EPI)AfAm Est GFR (CKD-EPI)NonAf POC Glucometer 253 244 Random Glucose Calcium Phosphorus Magnesium Total Bilirubin AST ALT Alkaline Phosphatase Total Protein Albumin Anti-Plt GP Ib/IX Anti-Plt GP IV GP Ia/IIa Plasma Anti-Plt IIb/IIIa HLA Class I Antibody Active Medications Generic Name Dose Route Start Last Admin Trade Name Freq PRN Reason Stop Dose Admin Amino Acids 30 ml 01/13/20 22:00 01/18/20 14:18 Prosource No Carb Liquid Pkt PO 30 ml TID [facility] Administration Atorvastatin Calcium 80 mg 01/12/20 22:00 01/17/20 21:42 Lipitor - PO 80 mg HS LANCE Administration Chlorhexidine Gluconate 1 applic 01/10/20 22:00 01/17/20 21:42 Hibiclens For Decolonization - TP 1 applic HS L[facility] Administration Collagenase 1 applic 01/11/20 14:15 01/18/20 09:32 Santyl - TP 1 applic DAILY [facility] Administration Protocol Heparin Sodium (Porcine) 5,000 unit 01/18/20 14:00 01/18/20 14:19 Heparin - SQ 5,000 unit TID [facility] Administration Norepinephrine Bitartrate 8,000 mcg in 500 mls @ 18.75 mls/hr 01/11/20 03:15 01/18/20 17:54 Levophed Bag IVPB 20 mcg/min TITR L[facility] 75 mls/hr Administration Protocol 5 MCG/MIN Propofol 1,000,000 mcg in 100 mls @ 8.748 mls/hr 01/15/20 18:30 01/18/20 14:17 Diprivan - IVPB 30 mcg/kg/min TITR [facility] 26.244 mls/hr Administration Protocol 10 MCG/KG/MIN Vasopressin 40 units/ Sodium 100 mls @ 5 mls/hr 01/17/20 15:15 01/18/20 17:47 Chloride IVPB Not Given ASDIR [facility] Protocol 2 UNITS/HR Insulin Aspart 1 vial 01/10/20 22:00 01/18/20 16:59 Novolog Vial Sliding Scale - SQ 4 units ACHS [facility] Administration Protocol Pantoprazole Sodium 40 mg 01/13/20 10:00 01/18/20 09:31 Protonix Iv IVPUSH 40 mg DAILY [facility] Administration Vancomycin HCl 250 mg 01/18/20 18:00 01/18/20 17:46 Vancomycin Oral Solution PO 250 ml Q6HPO [facility] Administration ASSESSMENT/PLAN: 54 yo F w/ PMH CKD , afib (Eliquis), DM, HTN, chronic LE ulcers . admitted for acute toxic metabolic encephalopathy, admitted to ICU for septic shock requiring pressor support. 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 - maintain SBP <140 - daily sedation vacations to assess mental status Pulmonary - intubated TV 500 FIO2 40 PEEP 8 RR 22 - monitor and maintain Spo2>90% Cardio - in Afib, rate controlled - on vasopressin, levophed - Cardio consulted Echocardiogram 01/14/2020 Normal LV size and function EF 60% -65 - continue statin GI - no acute issues - PPI Endo - DM - hold home PO meds - c/w ISS + BGM ACHS ID - septic shock likely 2/2 cellulitis - wound culture multiple organism - meropenem d/c due to thrombocytopenia - f/u cultures - Vascular surgeon consulted for LE ulcers - ID consulted (Dr. Iyer) leukocytosis: antibiotics d/ilda yesterday cdiff +: started on PO vanc 250 mg q6h Renal Renal failure requiring HD CKD -Nephro consulted (Dr. Epstein) no longer needs HD Monitor I/O's monitor electrolytes Heme / Onc - heme consulted (Dr. Rubio) - thrombocytopenia likely 2/2 meropenem - heparin started today FEN - monitor and replete electrolytes - enteral feeds LTD - cuevas - flexi seal - LIJ 01/10-removed today, RIJ placed 01/17 - L fem trialysis 01/09 DVT Ppx - Heparin TID GI Ppx - IV protonix 40 Visit type - Emergency Visit Emergency Visit: Yes ED Registration Date: 01/10/20 Care time: The patient presented to the Emergency Department on the above date and was hospitalized for further evaluation of their emergent condition. - New Patient This patient is new to me today: Yes Date on this admission: 01/18/20 - Critical Care Critical Care patient: Yes Total Critical Care Time (in minutes): 36 Critical Care Statement: The care of this patient involved high complexity decision making to prevent further life threatening deterioration of the patient's condition and/or to evaluate & treat vital organ system(s) failure or risk of failure. - Discharge Referral Referred to [facility] No ATTENDING PHYSICIAN STATEMENT I saw and evaluated the patient. I reviewed the resident's note and discussed the case with the resident. I agree with the resident's findings and plan as documented. SUBJECTIVE: OBJECTIVE: ASSESSMENT AND PLAN:
[2020-01-18] MEDS ORDERED: PROPOFOL 1,000,000 MCG/100 ML VIAL IVPB SCH (19:30)
[2020-01-18] MEDS ORDERED: FENTANYL NS IVPB 500 MCG/100 ML BAG IVPB SCH ×3 (19:45→19:49)
[2020-01-18] MEDS: FENTANYL NS IVPB 500 MCG/100 ML BAG IVPB SCH (21:04)
[2020-01-18] MEDS: HEPARIN NA (PORCINE) 5,000 UNITS/ML 1ML VIAL SQ SCH (21:06)
[2020-01-18] MEDS: CHLORHEXIDINE GLUCONATE 4% CLEANSER FOR DECOLONIZATION TP SCH (21:06)
[2020-01-18] MEDS: MIDAZOLAM 100 MG in SODIUM CHLORIDE 100 ML IVPB SCH (21:06)
[2020-01-18] MEDS: ATORVASTATIN CA 80 MG TABLET (FP) PO SCH (21:07)
[2020-01-19] MEDS: VANCOMYCIN 250 MG/5 ML ORAL SOLUTION PO SCH ×4 (00:56→17:11)
[2020-01-19] MEDS: FENTANYL NS IVPB 500 MCG/100 ML BAG IVPB SCH ×2 (02:11→22:10)
[2020-01-19] MEDS: PROPOFOL 1,000,000 MCG/100 ML VIAL IVPB SCH (02:11)
[2020-01-19] MEDS: NOREPINEPHRINE BITARTRATE 8,000 MCG/500 ML BAG IVPB SCH (02:11)
[2020-01-19] MEDS: AMINO ACIDS/PROTEIN HYDROLYS 30 ML LIQUID.PKT PO SCH ×3 (02:32→22:09)
[2020-01-19] MEDS: HEPARIN NA (PORCINE) 5,000 UNITS/ML 1ML VIAL SQ SCH ×3 (06:11→22:09)
[2020-01-19 06:33] LABS: ARTERIAL BLD GAS O2 SATURATION 98.9 mmHg (95-98); ARTERIAL BLOOD GAS BASE EXCESS -4.2 mmol/L (-2-2); ARTERIAL BLOOD GAS PO2 140.2 mmHg (80-100); ARTERIAL BLOOD GAS pH 7.423 (7.350-7.450)
[2020-01-19] MEDS: INSULIN SLIDING SCALE (NOVOLOG) 1 VIAL SQ SCH ×4 (06:34→22:09)
[2020-01-19 06:42] LABS: VENT MODE A/C
[2020-01-19 06:43] LABS: ALLENS TEST POSITIVE; PT'S TEMP 98.6; VENT RATE 22
[2020-01-19 07:04] LABS: BASO % 0.6 % (0-2.0); EOS % 3.1 % (0-4.5); HEMATOCRIT 27.9 % (32.4-45.2); LYMPH % 6.7 % (8-40); MCH 27.5 pg (25.7-33.7); MCHC 32.3 g/dl (32.0-36.0); MEAN CELL VOLUME 85.2 fl (80-96); MEAN PLT VOLUME 9.7 fl (7.5-11.1); MONO % 7.5 % (3.8-10.2); NEUT % 82.1 % (42.8-82.8); PLATELET COUNT 247 K/MM3 (134-434); RBC 3.27 M/mm3 (3.60-5.2); RDW 14.4 % (11.6-15.6); WHITE BLOOD COUNT 17.5 K/mm3 (4.0-10.0)
[2020-01-19 07:35] LABS: ALBUMIN 1.6 g/dl (3.4-5.0); BILIRUBIN,TOTAL 0.5 mg/dL (0.2-1); CALCIUM 8.5 mg/dL (8.5-10.1); CREATININE 2.2 mg/dL (0.55-1.3); MAGNESIUM 1.9 mg/dL (1.8-2.4); PHOSPHOROUS 7.8 mg/dL (2.5-4.9); POTASSIUM 3.6 mmol/L (3.5-5.1); TOT PROT 5.9 g/dl (6.4-8.2)
[2020-01-19 08:04] LABS: BLOOD UREA NITROGEN 106.2 mg/dL (7-18)
[2020-01-19 09:31] LABS: ANISOCYTOSIS 0; MACROCYTOSIS 0; PLATELET ESTIMATE NORMAL
[2020-01-19] MEDS ORDERED: PT OWN MED DRAWER 7, Y5N ONE (10:15)
[2020-01-19] MEDS: PANTOPRAZOLE SODIUM 40 MG VIAL IVPUSH SCH (10:50)
[2020-01-19] MEDS: KCL 10 MEQ IVPB 10 MEQ/100 ML INFUS.BAG IVPB SCH ×3 (12:23→16:31)
--- NOTE | 2020-01-19 12:37 | PN ---
Teaching Attending Note Name of Resident: Terrie Yee ATTENDING PHYSICIAN STATEMENT I saw and evaluated the patient. I reviewed the resident's note and discussed the case with the resident. I agree with the resident's findings and plan as documented. SUBJECTIVE: Pt seen and examined in the ICU. Remains intubated, sedated on lower dose levophed gtt. No fevers. Good urine output. OBJECTIVE: Vital Signs Period Temp Pulse Resp BP Sys/Callahan Pulse Ox Last 24 Hr 97.4 F-99.9 F 86-118 22-36 105-133/64-86 96-100 Intake & Output 01/16/20 01/17/20 01/18/20 01/19/20 23:59 23:59 23:59 23:59 Intake Total 2890.8 2822 3359.6 1008 Output Total 3100 6550 8800 1000 Balance -209.2 -3728 -5440.4 8 Weight 146.2 kg 139.2 kg 138.7 kg 132 kg Gen: intubated, sedated Heart: RRR Lung: scattered rhonchi Abd: soft, nontender Ext: wrapped CBC, BMP 01/19/20 05:00 01/19/20 05:00 Active Medications Amino Acids (Prosource No Carb Liquid Pkt) 30 ml PO TID [facility] Last Admin: 01/19/20 06:10 Dose: 30 ml Documented by: Atorvastatin Calcium (Lipitor -) 80 mg PO HS [facility] Last Admin: 01/18/20 21:07 Dose: 80 mg Documented by: Chlorhexidine Gluconate (Hibiclens For Decolonization -) 1 applic TP HS [facility] Last Admin: 01/18/20 21:06 Dose: 1 applic Documented by: Collagenase (Santyl -) 1 applic TP DAILY [facility]; Protocol Last Admin: 01/18/20 09:32 Dose: 1 applic Documented by: Heparin Sodium (Porcine) (Heparin -) 5,000 unit SQ TID [facility] Last Admin: 01/19/20 06:11 Dose: 5,000 unit Documented by: Norepinephrine Bitartrate (Levophed Bag) 8,000 mcg in 500 mls @ 18.75 mls/hr IVPB TITR [facility]; Protocol Last Titration: 01/19/20 06:57 Dose: 4 mcg/min, 15 mls/hr Documented by: Propofol (Diprivan -) 1,000,000 mcg in 100 mls @ 8.748 mls/hr IVPB TITR [facility]; Protocol Last Titration: 01/19/20 10:45 Dose: 0 mcg/kg/min, 0 mls/hr Documented by: Vasopressin 40 units/ Sodium (Chloride) 100 mls @ 5 mls/hr IVPB ASDIR [facility]; Protocol Last Admin: 01/18/20 17:47 Dose: Not Given Documented by: Midazolam HCl 100 mg/ Sodium (Chloride) 100 mls @ 1 mls/hr IVPB TITR [facility]; Protocol Last Titration: 01/19/20 10:45 Dose: 0 mg/hr, 0 mls/hr Documented by: Fentanyl (Sublimaze Ivpb) 500 mcg in 100 mls @ 5 mls/hr IVPB TITR [facility]; Protocol Last Titration: 01/19/20 10:45 Dose: 0 mcg/hr, 0 mls/hr Documented by: Potassium Chloride (Potassium Chloride 10 Meq Premix Ivpb -) 10 meq in 100 mls @ 100 mls/hr IVPB Q60M [facility] Stop: 01/19/20 14:59 Last Admin: 01/19/20 12:23 Dose: 100 mls/hr Documented by: Insulin Aspart (Novolog Vial Sliding Scale -) 1 vial SQ ACHS [facility]; Protocol Last Admin: 01/19/20 06:34 Dose: 4 units Documented by: Pantoprazole Sodium (Protonix Iv) 40 mg IVPUSH DAILY [facility] Last Admin: 01/19/20 10:50 Dose: 40 mg Documented by: Vancomycin HCl (Vancomycin Oral Solution) 250 mg PO Q6HPO [facility] Last Admin: 01/19/20 12:24 Dose: 5 ml Documented by: ASSESSMENT AND PLAN: Acute Hypoxic Respiratory Failure Cellulitis Septic Shock Acute on Chronic Renal Failure Atrial Fibrillation HTN DM Morbid Obesity BARRY/OHS C Diff Colitis - continue antibiotics - titrate pressors to maintain MAP>65 - monitor urine output, creatinine - titrate FiO2, PEEP to keep SpO2 >90% - wound care - daily sedation vacations to assess mental status - enteral feeds - DVT/GI prophylaxis - continue ICU monitoring critical care time spent in reviewing chart, evaluating patient and formulating plan 35 min
--- NOTE | 2020-01-19 13:33 | PN ---
Progress Note, Physician History of Present Illness: Pt seen and examined at bedside. She remains in the ICU. She remains intubated. - Current Medication List Current Medications: Active Medications Amino Acids (Prosource No Carb Liquid Pkt) 30 ml PO TID [facility] Last Admin: 01/19/20 06:10 Dose: 30 ml Documented by: Atorvastatin Calcium (Lipitor -) 80 mg PO HS [facility] Last Admin: 01/18/20 21:07 Dose: 80 mg Documented by: Chlorhexidine Gluconate (Hibiclens For Decolonization -) 1 applic TP HS [facility] Last Admin: 01/18/20 21:06 Dose: 1 applic Documented by: Collagenase (Santyl -) 1 applic TP DAILY [facility]; Protocol Last Admin: 01/18/20 09:32 Dose: 1 applic Documented by: Heparin Sodium (Porcine) (Heparin -) 5,000 unit SQ TID [facility] Last Admin: 01/19/20 06:11 Dose: 5,000 unit Documented by: Norepinephrine Bitartrate (Levophed Bag) 8,000 mcg in 500 mls @ 18.75 mls/hr IVPB TITR [facility]; Protocol Last Titration: 01/19/20 06:57 Dose: 4 mcg/min, 15 mls/hr Documented by: Propofol (Diprivan -) 1,000,000 mcg in 100 mls @ 8.748 mls/hr IVPB TITR [facility]; Protocol Last Titration: 01/19/20 10:45 Dose: 0 mcg/kg/min, 0 mls/hr Documented by: Vasopressin 40 units/ Sodium (Chloride) 100 mls @ 5 mls/hr IVPB ASDIR [facility]; Protocol Last Admin: 01/18/20 17:47 Dose: Not Given Documented by: Midazolam HCl 100 mg/ Sodium (Chloride) 100 mls @ 1 mls/hr IVPB TITR [facility]; Protocol Last Titration: 01/19/20 10:45 Dose: 0 mg/hr, 0 mls/hr Documented by: Fentanyl (Sublimaze Ivpb) 500 mcg in 100 mls @ 5 mls/hr IVPB TITR [facility]; Protocol Last Titration: 01/19/20 10:45 Dose: 0 mcg/hr, 0 mls/hr Documented by: Potassium Chloride (Potassium Chloride 10 Meq Premix Ivpb -) 10 meq in 100 mls @ 100 mls/hr IVPB Q60M [facility] Stop: 01/19/20 14:59 Last Admin: 01/19/20 12:23 Dose: 100 mls/hr Documented by: Insulin Aspart (Novolog Vial Sliding Scale -) 1 vial SQ ACHS [facility]; Protocol Last Admin: 01/19/20 06:34 Dose: 4 units Documented by: Pantoprazole Sodium (Protonix Iv) 40 mg IVPUSH DAILY [facility] Last Admin: 01/19/20 10:50 Dose: 40 mg Documented by: Vancomycin HCl (Vancomycin Oral Solution) 250 mg PO Q6HPO [facility] Last Admin: 01/19/20 12:24 Dose: 5 ml Documented by: - Objective Vital Signs: Vital Signs Temperature 97.4 F L 01/19/20 10:00 Pulse Rate 118 H 01/19/20 12:00 Respiratory Rate 36 H 01/19/20 12:00 Blood Pressure 128/86 01/19/20 12:00 O2 Sat by Pulse Oximetry (%) 98 01/19/20 12:00 Constitutional: Yes: Calm Eyes: Yes: Conjunctiva Clear HENT: Yes: Atraumatic Neck: Yes: Supple Cardiovascular: Yes: S1, S2 Respiratory: Yes: Mechanically Ventilated Gastrointestinal: Yes: Normal Bowel Sounds, Soft, Abdomen, Obese Genitourinary: Yes: Johnson Present Edema: Yes Edema: LLE: Trace, RLE: Trace Neurological: Yes: Lethargy Labs: CBC, BMP 01/19/20 05:00 01/19/20 05:00 INR, PTT INR 1.17 (0.83-1.09) H 01/15/20 06:30 Fibrinogen > 500.0 mg/dL (238-498) H 01/15/20 06:30 - ....Imaging Chest X-ray: Report Reviewed Problem List - Problems (1) NOVA (acute kidney injury) Code(s): N17.9 - ACUTE KIDNEY FAILURE, UNSPECIFIED (2) DM2 (diabetes mellitus, type 2) Code(s): E11.9 - TYPE 2 DIABETES MELLITUS WITHOUT COMPLICATIONS Qualifiers: Diabetes mellitus oysterman insulin use: with chcf use Diabetes mellitus complication detail: with other circulatory complications (3) Hyperkalemia Code(s): E87.5 - HYPERKALEMIA (4) Metabolic acidosis Code(s): E87.2 - ACIDOSIS Assessment/Plan Current Medications Generic Name Dose Route Start Last Admin Trade Name Opal PRN Reason Stop Dose Admin Amino Acids 30 ml 01/13/20 22:00 01/19/20 06:10 Prosource No Carb Liquid Pkt PO 30 ml TID [facility] Administration Atorvastatin Calcium 80 mg 01/12/20 22:00 01/18/20 21:07 Lipitor - PO 80 mg HS LANCE Administration Chlorhexidine Gluconate 1 applic 01/10/20 22:00 01/18/20 21:06 Hibiclens For Decolonization - TP 1 applic HS LANCE Administration Collagenase 1 applic 01/11/20 14:15 01/18/20 09:32 Santyl - TP 1 applic DAILY [facility] Administration Protocol Heparin Sodium (Porcine) 5,000 unit 01/18/20 22:00 01/19/20 06:11 Heparin - SQ 5,000 unit TID LANCE Administration Norepinephrine Bitartrate 8,000 mcg in 500 mls @ 18.75 mls/hr 01/11/20 03:15 01/19/20 06:57 Levophed Bag IVPB 4 mcg/min TITR LANCE 15 mls/hr Titration Protocol 5 MCG/MIN Propofol 1,000,000 mcg in 100 mls @ 8.748 mls/hr 01/15/20 18:30 01/19/20 10:45 Diprivan - IVPB 0 mcg/kg/min TITR LANCE 0 mls/hr Titration Protocol 10 MCG/KG/MIN Vasopressin 40 units/ Sodium 100 mls @ 5 mls/hr 01/17/20 15:15 01/18/20 17:47 Chloride IVPB Not Given ASDIR [facility] Protocol 2 UNITS/HR Midazolam HCl 100 mg/ Sodium 100 mls @ 1 mls/hr 01/18/20 20:15 01/19/20 10:45 Chloride IVPB 0 mg/hr TITR LANCE 0 mls/hr Titration Protocol 1 MG/HR Fentanyl 500 mcg in 100 mls @ 5 mls/hr 01/18/20 19:51 01/19/20 10:45 Sublimaze Ivpb IVPB 0 mcg/hr TITR LANCE 0 mls/hr Titration Protocol 25 MCG/HR Potassium Chloride 10 meq in 100 mls @ 100 mls/hr 01/19/20 12:00 01/19/20 12:23 Potassium Chloride 10 Meq Premix Ivpb - IVPB 01/19/20 14:59 100 mls/hr Q60M LANCE Administration Insulin Aspart 1 vial 01/10/20 22:00 01/19/20 06:34 Novolog Vial Sliding Scale - SQ 4 units ACHS LANCE Administration Protocol Pantoprazole Sodium 40 mg 01/13/20 10:00 01/19/20 10:50 Protonix Iv IVPUSH 40 mg DAILY [facility] Administration Vancomycin HCl 250 mg 01/18/20 18:00 01/19/20 12:24 Vancomycin Oral Solution PO 5 ml Q6HPO L[facility] Administration Impression 1. NOVA 2. hyperkalemia 3. obesity 4. DM 5. a-fib 6. HTN 7. chronic lower extremity ulcers 8. gastritis 9. sepsis 10. hyperglycemia 11. metabolic acidosis 12. peripheral vascular disease 13. acute resp failure 14. shock 15. cva 16. thrombocytopenia Plan - renal function improving - cont to monitor senior ios developer - monitor potassium - vent support - no indication for hd - cont feeds - monitor volume status - wound care - cont abx - discussed with icu team
--- NOTE | 2020-01-19 14:39 | PN ---
Progress Note (short form) - Note Progress Note: remains intubated and sedated pressors stopped Vital Signs Period Temp Pulse Resp BP Sys/Callahan Pulse Ox Last 24 Hr 97.4 F-99.9 F 86-118 22-36 105-133/64-86 96-100 cor-rrr lungs decreased bs at bases abd soft,nt ext dressings intact CBC, BMP 01/19/20 05:00 01/19/20 05:00 Microbiology 01/16/20 10:02 Blood - Peripheral Venous Blood Culture - Preliminary NO GROWTH OBTAINED AFTER 72 HOURS, INCUBATION TO CONTINUE FOR 2 DAYS. 01/16/20 10:02 Blood - Peripheral Venous Blood Culture - Preliminary NO GROWTH OBTAINED AFTER 72 HOURS, INCUBATION TO CONTINUE FOR 2 DAYS. 01/17/20 12:50 Sputum - Endotrachea Suction/Ventilator Gram Stain - Final 01/17/20 12:50 Sputum - Endotrachea Suction/Ventilator Sputum Culture - Final Stenotrophomon.(X.)Maltophilia Yeast Like Organism 01/17/20 15:00 Stool Clostridioides difficile Antigen - Final 01/17/20 15:00 Stool Clostridioides difficile Toxin Assay - Final 01/10/20 11:10 Blood - Peripheral Venous Blood Culture - Final NO GROWTH AFTER 5 DAYS INCUBATION 01/10/20 11:10 Blood - Peripheral Venous Blood Culture - Final NO GROWTH AFTER 5 DAYS INCUBATION 01/10/20 11:10 Leg - Right Lower Gram Stain - Final 01/10/20 11:10 Leg - Right Lower Wound Culture - Final Klebsiella Pneumoniae Proteus Mirabilis Enterococcus Avium Lactose Fermenting Neg Bacilli 01/10/20 16:00 Urine - Urine - Catheterized Urine Culture - Final NO GROWTH OBTAINED a/p leukocytosis- improving +cdiff antigen with diarrhea, po vancomycin started line changed cultures sent resp failure renal failure improved chronic venous stasis ulcers improved new CVA d/w staff cytotechnologist Problem List - Problems (1) Septic shock Code(s): A41.9 - SEPSIS, UNSPECIFIED ORGANISM; R65.21 - SEVERE SEPSIS WITH SEPTIC SHOCK (2) ARF (acute renal failure) Code(s): N17.9 - ACUTE KIDNEY FAILURE, UNSPECIFIED Qualifiers: Acute renal failure type: unspecified Qualified Code(s): N17.9 - Acute kidney failure, unspecified (3) Respiratory failure Code(s): J96.90 - RESPIRATORY FAILURE, UNSP, UNSP W HYPOXIA OR HYPERCAPNIA (4) Penicillin allergy Code(s): Z88.0 - ALLERGY STATUS TO PENICILLIN
[2020-01-19] MEDS: VASOPRESSIN 40 UNITS in SODIUM CHLORIDE 98 ML IVPB SCH (16:32)
[2020-01-19] MEDS: COLLAGENASE CLOSTRIDIUM HIST. 30 GRAMS TUBE TP SCH (16:45)
--- NOTE | 2020-01-19 16:49 | PN ---
Progress Note, Physician Chief Complaint: Acute respiratory failure Acute renal failure Anemia Thrombocytopenia Uncontrolled diabetes - Current Medication List Current Medications: Active Medications Amino Acids (Prosource No Carb Liquid Pkt) 30 ml PO TID [facility] Last Admin: 01/19/20 06:10 Dose: 30 ml Documented by: Atorvastatin Calcium (Lipitor -) 80 mg PO HS [facility] Last Admin: 01/18/20 21:07 Dose: 80 mg Documented by: Chlorhexidine Gluconate (Hibiclens For Decolonization -) 1 applic TP HS [facility] Last Admin: 01/18/20 21:06 Dose: 1 applic Documented by: Collagenase (Santyl -) 1 applic TP DAILY [facility]; Protocol Last Admin: 01/19/20 16:45 Dose: 1 applic Documented by: Heparin Sodium (Porcine) (Heparin -) 5,000 unit SQ TID [facility] Last Admin: 01/19/20 14:30 Dose: 5,000 unit Documented by: Norepinephrine Bitartrate (Levophed Bag) 8,000 mcg in 500 mls @ 18.75 mls/hr IVPB TITR [facility]; Protocol Last Titration: 01/19/20 13:33 Dose: 0 mcg/min, 0 mls/hr Documented by: Propofol (Diprivan -) 1,000,000 mcg in 100 mls @ 8.748 mls/hr IVPB TITR [facility]; Protocol Last Titration: 01/19/20 10:45 Dose: 0 mcg/kg/min, 0 mls/hr Documented by: Vasopressin 40 units/ Sodium (Chloride) 100 mls @ 5 mls/hr IVPB [facility]; Protocol Last Admin: 01/19/20 16:32 Dose: Not Given Documented by: Midazolam HCl 100 mg/ Sodium (Chloride) 100 mls @ 1 mls/hr IVPB TITR [facility]; Protocol Last Titration: 01/19/20 10:45 Dose: 0 mg/hr, 0 mls/hr Documented by: Fentanyl (Sublimaze Ivpb) 500 mcg in 100 mls @ 5 mls/hr IVPB TITR [facility]; Protocol Last Titration: 01/19/20 16:32 Dose: 50 mcg/hr, 10 mls/hr Documented by: Insulin Aspart (Novolog Vial Sliding Scale -) 1 vial SQ ACHS [facility]; Protocol Last Admin: 01/19/20 11:44 Dose: 2 units Documented by: Pantoprazole Sodium (Protonix Iv) 40 mg IVPUSH DAILY [facility] Last Admin: 01/19/20 10:50 Dose: 40 mg Documented by: Vancomycin HCl (Vancomycin Oral Solution) 250 mg PO Q6HPO [facility] Last Admin: 01/19/20 12:24 Dose: 5 ml Documented by: - Objective Vital Signs: Vital Signs Temperature 97.9 F 01/19/20 14:00 Pulse Rate 134 H 01/19/20 14:00 Respiratory Rate 24 H 01/19/20 14:00 Blood Pressure 110/72 01/19/20 14:00 O2 Sat by Pulse Oximetry (%) 98 01/19/20 14:00 Labs: CBC, BMP 01/19/20 05:00 01/19/20 05:00 INR, PTT INR 1.17 (0.83-1.09) H 01/15/20 06:30 Fibrinogen > 500.0 mg/dL (238-498) H 01/15/20 06:30
--- NOTE | 2020-01-19 17:27 | PN ---
Physical Exam: SUBJECTIVE: Patient seen and examined bedside. Intubated, sedated. No events overnight. Stopped sedation this AM. OBJECTIVE: Vital Signs Temp Pulse Resp BP Pulse Ox 97.9 F 134 H 24 H 110/72 98 01/19/20 14:00 01/19/20 14:00 01/19/20 14:00 01/19/20 14:00 01/19/20 14:00 GENERAL: The patient is sedated, intubated HEAD: Normal with no signs of trauma. EYES: PERRL ENT: intubated NECK: L IJ in place LUNGS: front upper lungs breath sounds CTA BL HEART: irregularly irregular, S1, S2 ABDOMEN: Obese, soft, nontender, nondistended EXTREMITIES: BL edema NEUROLOGICAL: unable to assess SKIN:BL LE ulcers bandaged Intake & Output 01/16/20 01/17/20 01/18/20 01/19/20 23:59 23:59 23:59 23:59 Intake Total 2890.8 2822 3359.6 1008 Output Total 3100 6550 8800 1850 Balance -209.2 -3728 -5440.4 -842 Weight 322 lb 5.053 oz 306 lb 14.135 oz 305 lb 12.498 oz 291 lb 0.163 oz Laboratory Results - last 24 hr 01/18/20 01/19/20 01/19/20 21:43 05:00 05:00 WBC 17.5 H RBC 3.27 L Hgb 9.0 L Hct 27.9 L MCV 85.2 MCH 27.5 MCHC 32.3 RDW 14.4 Plt Count 247 MPV 9.7 Absolute Neuts (auto) 14.4 H Neutrophils % 82.1 Neutrophils % (Manual) 76.3 Band Neutrophils % 1.0 Lymphocytes % 6.7 L D Lymphocytes % (Manual) 7.2 L Monocytes % 7.5 Monocytes % (Manual) 3 L Eosinophils % 3.1 Eosinophils % (Manual) 7.2 H D Basophils % 0.6 Basophils % (Manual) 2.1 H D Myelocytes % (Man) 2 Promyelocytes % (Man) 0 Blast Cells % (Manual) 0 Nucleated RBC % 0 Metamyelocytes 1 D Hypochromia 0 Platelet Estimate Normal Polychromasia 0 Poikilocytosis 0 Anisocytosis 0 Microcytosis 0 Macrocytosis 0 Anticoagulation Therapy Puncture Site Patient Temperature ABG pH ABG pCO2 ABG pO2 ABG HCO3 ABG O2 Sat (Measured) ABG O2 Content ABG Base Excess Kwesi Test Patient On Oxygen O2 Delivery Device Oxygen Flow Rate Vent Mode Vent Rate Mechanical Rate PEEP Pressure Support Vent Sodium 138 Potassium 3.6 Chloride 103 Carbon Dioxide 23 Anion Gap 12 BUN 106.2 H* Creatinine 2.2 H Est GFR (CKD-EPI)AfAm 28.12 Est GFR (CKD-EPI)NonAf 24.26 POC Glucometer 193 Random Glucose 215 H Calcium 8.5 Phosphorus 7.8 H Magnesium 1.9 Total Bilirubin 0.5 AST 11 L ALT 14 Alkaline Phosphatase 161 H Total Protein 5.9 L Albumin 1.6 L 01/19/20 01/19/20 01/19/20 05:50 06:33 11:16 WBC RBC Hgb Hct MCV MCH MCHC RDW Plt Count MPV Absolute Neuts (auto) Neutrophils % Neutrophils % (Manual) Band Neutrophils % Lymphocytes % Lymphocytes % (Manual) Monocytes % Monocytes % (Manual) Eosinophils % Eosinophils % (Manual) Basophils % Basophils % (Manual) Myelocytes % (Man) Promyelocytes % (Man) Blast Cells % (Manual) Nucleated RBC % Metamyelocytes Hypochromia Platelet Estimate Polychromasia Poikilocytosis Anisocytosis Microcytosis Macrocytosis Anticoagulation Therapy No Result Required. Puncture Site Right radial Patient Temperature 98.6 ABG pH 7.423 ABG pCO2 30.50 L ABG pO2 140.2 H ABG HCO3 19.5 L ABG O2 Sat (Measured) 98.9 H ABG O2 Content No Result Required. ABG Base Excess -4.2 L Kwesi Test Positive Patient On Oxygen Yes O2 Delivery Device Vent Oxygen Flow Rate 40% Vent Mode A/c Vent Rate 22 Mechanical Rate Yes PEEP 8.0 Pressure Support Vent 500 Sodium Potassium Chloride Carbon Dioxide Anion Gap BUN Creatinine Est GFR (CKD-EPI)AfAm Est GFR (CKD-EPI)NonAf POC Glucometer 212 195 Random Glucose Calcium Phosphorus Magnesium Total Bilirubin AST ALT Alkaline Phosphatase Total Protein Albumin 01/19/20 16:47 WBC RBC Hgb Hct MCV MCH MCHC RDW Plt Count MPV Absolute Neuts (auto) Neutrophils % Neutrophils % (Manual) Band Neutrophils % Lymphocytes % Lymphocytes % (Manual) Monocytes % Monocytes % (Manual) Eosinophils % Eosinophils % (Manual) Basophils % Basophils % (Manual) Myelocytes % (Man) Promyelocytes % (Man) Blast Cells % (Manual) Nucleated RBC % Metamyelocytes Hypochromia Platelet Estimate Polychromasia Poikilocytosis Anisocytosis Microcytosis Macrocytosis Anticoagulation Therapy Puncture Site Patient Temperature ABG pH ABG pCO2 ABG pO2 ABG HCO3 ABG O2 Sat (Measured) ABG O2 Content ABG Base Excess Kwesi Test Patient On Oxygen O2 Delivery Device Oxygen Flow Rate Vent Mode Vent Rate Mechanical Rate PEEP Pressure Support Vent Sodium Potassium Chloride Carbon Dioxide Anion Gap BUN Creatinine Est GFR (CKD-EPI)AfAm Est GFR (CKD-EPI)NonAf POC Glucometer 207 Random Glucose Calcium Phosphorus Magnesium Total Bilirubin AST ALT Alkaline Phosphatase Total Protein Albumin Active Medications Generic Name Dose Route Start Last Admin Trade Name Freq PRN Reason Stop Dose Admin Amino Acids 30 ml 01/13/20 22:00 01/19/20 06:10 Prosource No Carb Liquid Pkt PO 30 ml TID [facility] Administration Atorvastatin Calcium 80 mg 01/12/20 22:00 01/18/20 21:07 Lipitor - PO 80 mg HS LANCE Administration Chlorhexidine Gluconate 1 applic 01/10/20 22:00 01/18/20 21:06 Hibiclens For Decolonization - TP 1 applic HS [facility] Administration Collagenase 1 applic 01/11/20 14:15 01/19/20 16:45 Santyl - TP 1 applic DAILY [facility] Administration Protocol Heparin Sodium (Porcine) 5,000 unit 01/18/20 22:00 01/19/20 14:30 Heparin - SQ 5,000 unit TID L[facility] Administration Norepinephrine Bitartrate 8,000 mcg in 500 mls @ 18.75 mls/hr 01/11/20 03:15 01/19/20 13:33 Levophed Bag IVPB 0 mcg/min TITR LANCE 0 mls/hr Titration Protocol 5 MCG/MIN Propofol 1,000,000 mcg in 100 mls @ 8.748 mls/hr 01/15/20 18:30 01/19/20 10:45 Diprivan - IVPB 0 mcg/kg/min TITR L[facility] 0 mls/hr Titration Protocol 10 MCG/KG/MIN Vasopressin 40 units/ Sodium 100 mls @ 5 mls/hr 01/17/20 15:15 01/19/20 16:32 Chloride IVPB Not Given ASDIR L[facility] Protocol 2 UNITS/HR Midazolam HCl 100 mg/ Sodium 100 mls @ 1 mls/hr 01/18/20 20:15 01/19/20 10:45 Chloride IVPB 0 mg/hr TITR [facility] 0 mls/hr Titration Protocol 1 MG/HR Fentanyl 500 mcg in 100 mls @ 5 mls/hr 01/18/20 19:51 01/19/20 16:32 Sublimaze Ivpb IVPB 50 mcg/hr TITR [facility] 10 mls/hr Titration Protocol 25 MCG/HR Insulin Aspart 1 vial 01/10/20 22:00 01/19/20 17:00 Novolog Vial Sliding Scale - SQ 4 units ACHS L[facility] Administration Protocol Pantoprazole Sodium 40 mg 01/13/20 10:00 01/19/20 10:50 Protonix Iv IVPUSH 40 mg DAILY [facility] Administration Vancomycin HCl 250 mg 01/18/20 18:00 01/19/20 17:11 Vancomycin Oral Solution PO 5 ml Q6HPO [facility] Administration ASSESSMENT/PLAN: 54 yo F w/ PMH CKD , afib (Eliquis), DM, HTN, chronic LE ulcers . admitted for acute toxic metabolic encephalopathy, admitted to ICU for septic shock requiring pressor support. 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 - maintain SBP <140 - daily sedation vacations to assess mental status Pulmonary - intubated TV 500 FIO2 40 PEEP 8 RR 22 - stopped sedation today, trial CPAP breathing patient did not wake up fully started desaturating put back on Vent settings restarted fentanyl, will try to wean off medication tomorrow to try CPAP again - monitor and maintain Spo2>90% Cardio - in Afib, rate controlled - on vasopressin, levophed - Cardio consulted Echocardiogram 01/14/2020 Normal LV size and function EF 60% -65 - continue statin GI - no acute issues - PPI Endo - DM - hold home PO meds - c/w ISS + BGM ACHS ID - septic shock likely 2/2 cellulitis - Vascular surgeon consulted for LE ulcers - ID consulted (Dr. Iyer) leukocytosis: antibiotics d/c 01/17 cdiff +: started on PO vanc 250 mg q6h >> day 2 blood cultures pending Renal - Renal failure requiring HD - Nephro consulted (Dr. Epstein) no longer needs HD Monitor I/O's monitor electrolytes - repleted potassium Heme / Onc - heme consulted (Dr. Rubio) - thrombocytopenia likely 2/2 meropenem - s/q heparin FEN - monitor and replete electrolytes - enteral feeds LTD - cuevas - flexi seal - RIJ placed 01/17 - L fem trialysis 01/09 DVT Ppx - Heparin sq TID GI Ppx - IV protonix 40 Visit type - Emergency Visit Emergency Visit: Yes ED Registration Date: 01/10/20 Care time: The patient presented to the Emergency Department on the above date and was hospitalized for further evaluation of their emergent condition. - New Patient This patient is new to me today: No - Critical Care Critical Care patient: Yes Total Critical Care Time (in minutes): 37 Critical Care Statement: The care of this patient involved high complexity decision making to prevent further life threatening deterioration of the patient's condition and/or to evaluate & treat vital organ system(s) failure or risk of failure. - Discharge Referral Referred to [facility] No ATTENDING PHYSICIAN STATEMENT I saw and evaluated the patient. I reviewed the resident's note and discussed the case with the resident. I agree with the resident's findings and plan as documented. SUBJECTIVE: OBJECTIVE: ASSESSMENT AND PLAN:
[2020-01-19] MEDS: ATORVASTATIN CA 80 MG TABLET (FP) PO SCH (22:09)
[2020-01-19] MEDS: MIDAZOLAM 100 MG in SODIUM CHLORIDE 100 ML IVPB SCH (22:10)
[2020-01-19] MEDS: CHLORHEXIDINE GLUCONATE 4% CLEANSER FOR DECOLONIZATION TP SCH (22:10)
[2020-01-20] MEDS: MIDAZOLAM 100 MG in SODIUM CHLORIDE 100 ML IVPB SCH (02:41)
[2020-01-20] MEDS: METOPROLOL TARTRATE 5 MG/5 ML VIAL IVPUSH PRN ×3 (03:20→21:19)
[2020-01-20] MEDS ORDERED: PT OWN MED DRAWER 7, Y5N ONE (06:06)
[2020-01-20] MEDS: HEPARIN NA (PORCINE) 5,000 UNITS/ML 1ML VIAL SQ SCH ×3 (06:07→21:13)
[2020-01-20] MEDS: AMINO ACIDS/PROTEIN HYDROLYS 30 ML LIQUID.PKT PO SCH ×3 (06:07→21:13)
[2020-01-20] MEDS: VANCOMYCIN 250 MG/5 ML ORAL SOLUTION PO SCH ×4 (06:07→18:08)
[2020-01-20] MEDS: INSULIN SLIDING SCALE (NOVOLOG) 1 VIAL SQ SCH ×4 (06:07→21:14)
[2020-01-20] MEDS: MIDAZOLAM IN 0.9 % SOD.CHLORID 100 MG/100 ML PLAST..BAG IVPB SCH (07:00)
[2020-01-20 07:10] LABS: HEMOGLOBIN 8.6 GM/dL (10.7-15.3); MCH 28.2 pg (25.7-33.7); MCHC 33.1 g/dl (32.0-36.0); MEAN CELL VOLUME 85.1 fl (80-96); MEAN PLT VOLUME 9.8 fl (7.5-11.1); PLATELET COUNT 247 K/MM3 (134-434); RBC 3.05 M/mm3 (3.60-5.2); RDW 14.6 % (11.6-15.6); WHITE BLOOD COUNT 13.7 K/mm3 (4.0-10.0)
--- NOTE | 2020-01-20 07:30 | PN ---
Progress Note, Physician Chief Complaint: SEDATION TAPERING OFF AWAKE MINIMALLY STILL INTUBATED ON VENT SUPPORT - Current Medication List Current Medications: Active Medications Amino Acids (Prosource No Carb Liquid Pkt) 30 ml PO TID [facility] Last Admin: 01/20/20 06:07 Dose: 30 ml Documented by: Atorvastatin Calcium (Lipitor -) 80 mg PO HS [facility] Last Admin: 01/19/20 22:09 Dose: 80 mg Documented by: Chlorhexidine Gluconate (Hibiclens For Decolonization -) 1 applic TP HS [facility] Last Admin: 01/19/20 22:10 Dose: 1 applic Documented by: Collagenase (Santyl -) 1 applic TP DAILY [facility]; Protocol Last Admin: 01/19/20 16:45 Dose: 1 applic Documented by: Heparin Sodium (Porcine) (Heparin -) 5,000 unit SQ TID [facility] Last Admin: 01/20/20 06:07 Dose: 5,000 unit Documented by: Norepinephrine Bitartrate (Levophed Bag) 8,000 mcg in 500 mls @ 18.75 mls/hr IVPB TITR [facility]; Protocol Last Titration: 01/19/20 13:33 Dose: 0 mcg/min, 0 mls/hr Documented by: Midazolam HCl 100 mg/ Sodium (Chloride) 100 mls @ 1 mls/hr IVPB TITR [facility]; Protocol Last Admin: 01/20/20 02:41 Dose: 4 mg/hr, 4 mls/hr Documented by: Fentanyl (Sublimaze Ivpb) 500 mcg in 100 mls @ 5 mls/hr IVPB TITR [facility]; Protocol Last Admin: 01/19/20 22:10 Dose: 50 mcg/hr, 10 mls/hr Documented by: Insulin Aspart (Novolog Vial Sliding Scale -) 1 vial SQ ACHS [facility]; Protocol Last Admin: 01/20/20 06:07 Dose: 4 units Documented by: Metoprolol Tartrate (Lopressor Injection -) 5 mg IVPUSH Q4H PRN PRN Reason: TACHYCARDIA Last Admin: 01/20/20 03:20 Dose: 5 mg Documented by: Pantoprazole Sodium (Protonix Iv) 40 mg IVPUSH DAILY [facility] Last Admin: 01/19/20 10:50 Dose: 40 mg Documented by: Vancomycin HCl (Vancomycin Oral Solution) 250 mg PO Q6HPO [facility] Last Admin: 01/20/20 06:07 Dose: 250 mg Documented by: - Objective Vital Signs: Vital Signs Temperature 97.8 F 01/20/20 05:00 Pulse Rate 109 H 01/20/20 05:00 Respiratory Rate 22 H 01/20/20 05:00 Blood Pressure 101/69 01/20/20 05:00 O2 Sat by Pulse Oximetry (%) 100 01/20/20 05:00 Constitutional: Yes: Other Cardiovascular: Yes: Pulse Irregular Respiratory: Yes: Diminished, Mechanically Ventilated Gastrointestinal: Yes: Abdomen, Obese ...Rectal Exam: Yes: Other (RECTAL TUBE) Genitourinary: Yes: Dc Present Musculoskeletal: Yes: Muscle Weakness Edema: Yes Integumentary: Yes: Erythema, Pressure Ulcer, Rash, Venous Stasis Changes Wound/Incision: Yes: Open to air, Dressing Dry and Intact, Excoriated, Unapproximated Neurological: Yes: Pre-Existing Deficit Psychiatric: Yes: Other Labs: CBC, BMP 01/20/20 06:00 INR, PTT INR 1.17 (0.83-1.09) H 01/15/20 06:30 Fibrinogen > 500.0 mg/dL (238-498) H 01/15/20 06:30 Problem List - Problems (1) ARF (acute renal failure) Code(s): N17.9 - ACUTE KIDNEY FAILURE, UNSPECIFIED Qualifiers: Acute renal failure type: unspecified Qualified Code(s): N17.9 - Acute kidney failure, unspecified (2) CVA (cerebral vascular accident) Code(s): I63.9 - CEREBRAL INFARCTION, UNSPECIFIED (3) Diabetic calf ulcer Code(s): E11.622 - TYPE 2 DIABETES MELLITUS WITH OTHER SKIN ULCER; L97.209 - NON-PRESSURE CHRONIC ULCER OF UNSP CALF WITH UNSP SEVERITY (4) Hyperkalemia Code(s): E87.5 - HYPERKALEMIA (5) Respiratory failure Code(s): J96.90 - RESPIRATORY FAILURE, UNSP, UNSP W HYPOXIA OR HYPERCAPNIA (6) Septic shock Code(s): A41.9 - SEPSIS, UNSPECIFIED ORGANISM; R65.21 - SEVERE SEPSIS WITH SEPTIC SHOCK (7) NOVA (acute kidney injury) Code(s): N17.9 - ACUTE KIDNEY FAILURE, UNSPECIFIED (8) Abdominal lymphadenopathy Code(s): R59.0 - LOCALIZED ENLARGED LYMPH NODES (9) Afib Code(s): I48.91 - UNSPECIFIED ATRIAL FIBRILLATION Qualifiers: Atrial fibrillation type: paroxysmal Qualified Code(s): I48.0 - Paroxysmal atrial fibrillation (10) Bilateral leg ulcer Code(s): L97.919 - NON-PRS CHRONIC ULC UNSP PRT OF R LOW LEG W UNSP SEVERITY; L97.929 - NON-PRS CHRONIC ULC UNSP PRT OF L LOW LEG W UNSP SEVERITY Qualifiers: Non-pressure ulcer stage: limited to breakdown of skin Qualified Code(s): L97.911 - Non-pressure chronic ulcer of unspecified part of right lower leg limited to breakdown of skin; L97.921 - Non-pressure chronic ulcer of unspecified part of left lower leg limited to breakdown of skin (11) Chronic cellulitis Code(s): L03.90 - CELLULITIS, UNSPECIFIED (12) Severe sepsis Code(s): A41.9 - SEPSIS, UNSPECIFIED ORGANISM; R65.20 - SEVERE SEPSIS WITHOUT SEPTIC SHOCK Assessment/Plan IV ABX PER ID CHECK WITH RENAL ON HD STATUS RESPIRATORY SUPPORT WEAN OFF VENT PER PULMONARY NOW OFF SEDATION EXTREMELY NON-COMPLIANT PATIENT NEEDS SALES PLANNING ANALYST AND PSYCH FOR F/U AND SUPPORT GROUP DM CONTROL WOUND CARE BACTROBAN DAILY CLEAN WOUNDS APPLY DRESSINGS RECTAL TUBE INSERTED DC + OUTPUT DVT PROPHYLAXIS
[2020-01-20 07:31] LABS: ALBUMIN 1.7 g/dl (3.4-5.0); BILIRUBIN,TOTAL 0.3 mg/dL (0.2-1); BLOOD UREA NITROGEN 95.9 mg/dL (7-18); CALCIUM 8.7 mg/dL (8.5-10.1); CREATININE 1.8 mg/dL (0.55-1.3); MAGNESIUM 1.8 mg/dL (1.8-2.4); PHOSPHOROUS 5.9 mg/dL (2.5-4.9); POTASSIUM 3.6 mmol/L (3.5-5.1); TOT PROT 6.3 g/dl (6.4-8.2)
[2020-01-20] MEDS: PANTOPRAZOLE SODIUM 40 MG VIAL IVPUSH SCH (10:27)
[2020-01-20] MEDS: KCL 10 MEQ IVPB 10 MEQ/100 ML INFUS.BAG IVPB SCH ×3 (10:28→13:34)
[2020-01-20] MEDS ORDERED: INSULIN (NOVOLOG) ASPART 100 UNITS/ML 10ML VIAL ONE (11:51)
[2020-01-20] MEDS ORDERED: PROPOFOL 1,000,000 MCG/100 ML VIAL ONE (12:18)
--- NOTE | 2020-01-20 12:18 | PN ---
Progress Note (short form) - Note Progress Note: remains intubated and sedated no pressors Vital Signs Period Temp Pulse Resp BP Sys/Callahan Pulse Ox Last 24 Hr 97.6 F-99.6 F 100-136 22-38 91-121/63-80 88-100 cor-rrr lungs decreased bs at bses abd soft,nt ext wrapped CBC, BMP 01/20/20 06:00 01/20/20 06:00 Microbiology 01/16/20 10:02 Blood - Peripheral Venous Blood Culture - Preliminary NO GROWTH OBTAINED AFTER 96 HOURS, INCUBATION TO CONTINUE FOR 1 DAYS. 01/16/20 10:02 Blood - Peripheral Venous Blood Culture - Preliminary NO GROWTH OBTAINED AFTER 96 HOURS, INCUBATION TO CONTINUE FOR 1 DAYS. 01/18/20 18:00 Blood - Central Line Blood Culture - Preliminary NO GROWTH OBTAINED AFTER 24 HOURS, INCUBATION TO CONTINUE FOR 4 DAYS. 01/18/20 18:00 Blood - Central Line Blood Culture - Preliminary NO GROWTH OBTAINED AFTER 24 HOURS, INCUBATION TO CONTINUE FOR 4 DAYS. 01/17/20 12:50 Sputum - Endotrachea Suction/Ventilator Gram Stain - Final 01/17/20 12:50 Sputum - Endotrachea Suction/Ventilator Sputum Culture - Final Stenotrophomon.(X.)Maltophilia Yeast Like Organism 01/17/20 15:00 Stool Clostridioides difficile Antigen - Final 01/17/20 15:00 Stool Clostridioides difficile Toxin Assay - Final 01/10/20 11:10 Blood - Peripheral Venous Blood Culture - Final NO GROWTH AFTER 5 DAYS INCUBATION 01/10/20 11:10 Blood - Peripheral Venous Blood Culture - Final NO GROWTH AFTER 5 DAYS INCUBATION 01/10/20 11:10 Leg - Right Lower Gram Stain - Final 01/10/20 11:10 Leg - Right Lower Wound Culture - Final Klebsiella Pneumoniae Proteus Mirabilis Enterococcus Avium Lactose Fermenting Neg Bacilli 01/10/20 16:00 Urine - Urine - Catheterized Urine Culture - Final NO GROWTH OBTAINED a/p leukocytosis- improving +cdiff antigen with diarrhea, po vancomycin day #2, leukocytosis improved line changed yesterday cultures sent resp failure-weaning trials as tolerated renal failure improved chronic venous stasis ulcers improved new CVA Problem List - Problems (1) Septic shock Code(s): A41.9 - SEPSIS, UNSPECIFIED ORGANISM; R65.21 - SEVERE SEPSIS WITH SEPTIC SHOCK (2) ARF (acute renal failure) Code(s): N17.9 - ACUTE KIDNEY FAILURE, UNSPECIFIED Qualifiers: Acute renal failure type: unspecified Qualified Code(s): N17.9 - Acute kidney failure, unspecified (3) Respiratory failure Code(s): J96.90 - RESPIRATORY FAILURE, UNSP, UNSP W HYPOXIA OR HYPERCAPNIA (4) Penicillin allergy Code(s): Z88.0 - ALLERGY STATUS TO PENICILLIN
[2020-01-20] MEDS: PROPOFOL 1,000,000 MCG/100 ML VIAL IVPB SCH (12:50)
--- NOTE | 2020-01-20 13:27 | PN ---
Teaching Attending Note Name of Resident: Terrie Yee ATTENDING PHYSICIAN STATEMENT I saw and evaluated the patient. I reviewed the resident's note and discussed the case with the resident. I agree with the resident's findings and plan as documented. SUBJECTIVE: Pt seen and examined in the ICU. Remains intubated, sedated. Off pressors. Tachypneic off sedation. OBJECTIVE: Vital Signs Period Temp Pulse Resp BP Sys/Callahan Pulse Ox Last 24 Hr 97.6 F-99.6 F 100-136 22-34 91-129/63-80 92-100 Intake & Output 01/17/20 01/18/20 01/19/20 01/20/20 23:59 23:59 23:59 23:59 Intake Total 2822 3359.6 1635 436 Output Total 6550 8800 1850 1000 Balance -3728 -5440.4 -215 -564 Weight 139.2 kg 138.7 kg 132 kg 129.2 kg Gen: intubated, sedated Heart: RRR Lung: scattered rhonchi Abd: soft, nontender Ext: wrapped CBC, BMP 01/20/20 06:00 01/20/20 06:00 Active Medications Amino Acids (Prosource No Carb Liquid Pkt) 30 ml PO TID [facility] Last Admin: 01/20/20 06:07 Dose: 30 ml Documented by: Atorvastatin Calcium (Lipitor -) 80 mg PO HS [facility] Last Admin: 01/19/20 22:09 Dose: 80 mg Documented by: Chlorhexidine Gluconate (Hibiclens For Decolonization -) 1 applic TP HS [facility] Last Admin: 01/19/20 22:10 Dose: 1 applic Documented by: Collagenase (Santyl -) 1 applic TP DAILY [facility]; Protocol Last Admin: 01/19/20 16:45 Dose: 1 applic Documented by: Heparin Sodium (Porcine) (Heparin -) 5,000 unit SQ TID [facility] Last Admin: 01/20/20 06:07 Dose: 5,000 unit Documented by: Norepinephrine Bitartrate (Levophed Bag) 8,000 mcg in 500 mls @ 18.75 mls/hr IVPB TITR [facility]; Protocol Last Titration: 01/19/20 13:33 Dose: 0 mcg/min, 0 mls/hr Documented by: Midazolam HCl 100 mg/ Sodium (Chloride) 100 mls @ 1 mls/hr IVPB TITR [facility]; Protocol Last Titration: 01/20/20 12:20 Dose: 0 mg/hr, 0 mls/hr Documented by: Fentanyl (Sublimaze Ivpb) 500 mcg in 100 mls @ 5 mls/hr IVPB TITR [facility]; Protocol Last Titration: 01/20/20 12:19 Dose: 0 mcg/hr, 0 mls/hr Documented by: Insulin Aspart (Novolog Vial Sliding Scale -) 1 vial SQ ACHS [facility]; Protocol Last Admin: 01/20/20 11:07 Dose: 4 units Documented by: Metoprolol Tartrate (Lopressor Injection -) 5 mg IVPUSH Q4H PRN PRN Reason: TACHYCARDIA Last Admin: 01/20/20 03:20 Dose: 5 mg Documented by: Pantoprazole Sodium (Protonix Iv) 40 mg IVPUSH DAILY [facility] Last Admin: 01/20/20 10:27 Dose: 40 mg Documented by: Vancomycin HCl (Vancomycin Oral Solution) 250 mg PO Q6HPO [facility] Last Admin: 01/20/20 11:53 Dose: 250 mg Documented by: ASSESSMENT AND PLAN: Acute Hypoxic Respiratory Failure Cellulitis Septic Shock Acute on Chronic Renal Failure Atrial Fibrillation HTN DM Morbid Obesity BARRY/OHS C Diff Colitis - continue antibiotics - off pressors, maintain MAP>65 - monitor urine output, creatinine - titrate FiO2, PEEP to keep SpO2 >90% - wound care - daily sedation vacations to assess mental status - enteral feeds - DVT/GI prophylaxis - continue ICU monitoring critical care time spent in reviewing chart, evaluating patient and formulating plan 35 min
[2020-01-20] MEDS: COLLAGENASE CLOSTRIDIUM HIST. 30 GRAMS TUBE TP SCH (14:00)
--- NOTE | 2020-01-20 15:05 | PN ---
Progress Note, Physician History of Present Illness: Pt seen and examined at bedside. SHe remains in the ICU. She remains intubated. - Current Medication List Current Medications: Active Medications Amino Acids (Prosource No Carb Liquid Pkt) 30 ml PO TID [facility] Last Admin: 01/20/20 13:34 Dose: 30 ml Documented by: Atorvastatin Calcium (Lipitor -) 80 mg PO HS [facility] Last Admin: 01/19/20 22:09 Dose: 80 mg Documented by: Chlorhexidine Gluconate (Hibiclens For Decolonization -) 1 applic TP HS [facility] Last Admin: 01/19/20 22:10 Dose: 1 applic Documented by: Collagenase (Santyl -) 1 applic TP DAILY [facility]; Protocol Last Admin: 01/19/20 16:45 Dose: 1 applic Documented by: Heparin Sodium (Porcine) (Heparin -) 5,000 unit SQ TID [facility] Last Admin: 01/20/20 13:34 Dose: 5,000 unit Documented by: Propofol (Diprivan -) 1,000,000 mcg in 100 mls @ 3.876 mls/hr IVPB TITR [facility]; Protocol Last Titration: 01/20/20 13:15 Dose: 15 mcg/kg/min, 11.628 mls/hr Documented by: Insulin Aspart (Novolog Vial Sliding Scale -) 1 vial SQ ACHS [facility]; Protocol Last Admin: 01/20/20 11:07 Dose: 4 units Documented by: Metoprolol Tartrate (Lopressor Injection -) 5 mg IVPUSH Q4H PRN PRN Reason: TACHYCARDIA Last Admin: 01/20/20 03:20 Dose: 5 mg Documented by: Pantoprazole Sodium (Protonix Iv) 40 mg IVPUSH DAILY [facility] Last Admin: 01/20/20 10:27 Dose: 40 mg Documented by: Vancomycin HCl (Vancomycin Oral Solution) 250 mg PO Q6HPO [facility] Last Admin: 01/20/20 11:53 Dose: 250 mg Documented by: - Objective Vital Signs: Vital Signs Temperature 99.6 F 01/20/20 14:00 Pulse Rate 122 H 01/20/20 14:00 Respiratory Rate 24 H 01/20/20 14:00 Blood Pressure 113/79 01/20/20 14:00 O2 Sat by Pulse Oximetry (%) 100 01/20/20 14:00 Constitutional: Yes: Calm Eyes: Yes: Conjunctiva Clear HENT: Yes: Atraumatic Cardiovascular: Yes: S1, S2 Respiratory: Yes: Accessory Muscle Use Gastrointestinal: Yes: Soft, Abdomen, Obese Genitourinary: Yes: Johnson Present Musculoskeletal: Yes: Muscle Weakness Edema: Yes Edema: LLE: 1+, RLE: 1+ Wound/Incision: Yes: Dressing Dry and Intact Neurological: Yes: Lethargy Labs: CBC, BMP 01/20/20 06:00 01/20/20 06:00 INR, PTT INR 1.17 (0.83-1.09) H 01/15/20 06:30 Fibrinogen > 500.0 mg/dL (238-498) H 01/15/20 06:30 - ....Imaging Chest X-ray: Report Reviewed Problem List - Problems (1) NOVA (acute kidney injury) Code(s): N17.9 - ACUTE KIDNEY FAILURE, UNSPECIFIED (2) DM2 (diabetes mellitus, type 2) Code(s): E11.9 - TYPE 2 DIABETES MELLITUS WITHOUT COMPLICATIONS Qualifiers: Diabetes mellitus banking center manager insulin use: with prison use Diabetes mellitus complication detail: with other circulatory complications (3) Hyperkalemia Code(s): E87.5 - HYPERKALEMIA (4) Metabolic acidosis Code(s): E87.2 - ACIDOSIS Assessment/Plan Current Medications Generic Name Dose Route Start Last Admin Trade Name Joeq PRN Reason Stop Dose Admin Amino Acids 30 ml 01/13/20 22:00 01/20/20 13:34 Prosource No Carb Liquid Pkt PO 30 ml TID [facility] Administration Atorvastatin Calcium 80 mg 01/12/20 22:00 01/19/20 22:09 Lipitor - PO 80 mg HS [facility] Administration Chlorhexidine Gluconate 1 applic 01/10/20 22:00 01/19/20 22:10 Hibiclens For Decolonization - TP 1 applic HS [facility] Administration Collagenase 1 applic 01/11/20 14:15 01/19/20 16:45 Santyl - TP 1 applic DAILY [facility] Administration Protocol Heparin Sodium (Porcine) 5,000 unit 01/18/20 22:00 01/20/20 13:34 Heparin - SQ 5,000 unit TID [facility] Administration Propofol 1,000,000 mcg in 100 mls @ 3.876 mls/hr 01/20/20 14:01 01/20/20 13:15 Diprivan - IVPB 15 mcg/kg/min TITR [facility] 11.628 mls/hr Titration Protocol 5 MCG/KG/MIN Insulin Aspart 1 vial 01/10/20 22:00 01/20/20 11:07 Novolog Vial Sliding Scale - SQ 4 units ACHS [facility] Administration Protocol Metoprolol Tartrate 5 mg 01/20/20 03:09 01/20/20 03:20 Lopressor Injection - IVPUSH 5 mg Q4H PRN Administration TACHYCARDIA Pantoprazole Sodium 40 mg 01/13/20 10:00 01/20/20 10:27 Protonix Iv IVPUSH 40 mg DAILY [facility] Administration Vancomycin HCl 250 mg 01/18/20 18:00 01/20/20 11:53 Vancomycin Oral Solution PO 250 mg Q6HPO [facility] Administration Impression 1. NOVA 2. hyperkalemia 3. obesity 4. DM 5. a-fib 6. HTN 7. chronic lower extremity ulcers 8. gastritis 9. sepsis 10. hyperglycemia 11. metabolic acidosis 12. peripheral vascular disease 13. acute resp failure 14. shock 15. cva 16. thrombocytopenia Plan - cont to monitor renal function - pt shows renal recovery, no indication for further HD - cont vent support - cont feeds - can give lasix as needed - monitor volume status - wound care - cont abx - discussed with icu team
--- NOTE | 2020-01-20 16:31 | PN ---
Physical Exam: SUBJECTIVE: Patient seen and examined bedside. Had to be put back on propofol and midazalem last night. OBJECTIVE: Vital Signs 01/20/20 01/20/20 09:00 10:00 Temperature 99.2 F 99.3 F Pulse Rate 115 H 100 H Respiratory 23 H 22 H Rate Blood Pressure 97/63 91/63 O2 Sat by Pulse 92 L 95 Oximetry (%) 01/20/20 14:00 Temperature 99.6 F Pulse Rate 122 H Respiratory 24 H Rate Blood Pressure 113/79 O2 Sat by Pulse 100 Oximetry (%) GENERAL: The patient is sedated, intubated. HEAD: Normal with no signs of trauma. EYES: PERRL ENT: intubated NECK: L IJ in place LUNGS: front upper lungs breath sounds CTA BL HEART: irregularly irregular, S1, S2 ABDOMEN: Obese, soft, nontender, nondistended EXTREMITIES: BL edema NEUROLOGICAL: Tried to assess when off medication, patient not responsive. SKIN:BL LE ulcers bandaged Laboratory Results - last 24 hr 01/19/20 01/19/20 01/20/20 16:47 21:30 06:00 WBC 13.7 H RBC 3.05 L Hgb 8.6 L Hct 26.0 L MCV 85.1 MCH 28.2 MCHC 33.1 RDW 14.6 Plt Count 247 MPV 9.8 Sodium Potassium Chloride Carbon Dioxide Anion Gap BUN Creatinine Est GFR (CKD-EPI)AfAm Est GFR (CKD-EPI)NonAf POC Glucometer 207 197 Random Glucose Calcium Phosphorus Magnesium Total Bilirubin AST ALT Alkaline Phosphatase Total Protein Albumin 01/20/20 01/20/20 01/20/20 06:00 06:04 11:04 WBC RBC Hgb Hct MCV MCH MCHC RDW Plt Count MPV Sodium 141 Potassium 3.6 Chloride 108 H Carbon Dioxide 23 Anion Gap 10 BUN 95.9 H Creatinine 1.8 H Est GFR (CKD-EPI)AfAm 35.84 Est GFR (CKD-EPI)NonAf 30.92 POC Glucometer 232 217 Random Glucose 232 H Calcium 8.7 Phosphorus 5.9 H Magnesium 1.8 Total Bilirubin 0.3 AST 22 ALT 13 Alkaline Phosphatase 146 H Total Protein 6.3 L Albumin 1.7 L Active Medications Generic Name Dose Route Start Last Admin Trade Name Freq PRN Reason Stop Dose Admin Amino Acids 30 ml 01/13/20 22:00 01/20/20 13:34 Prosource No Carb Liquid Pkt PO 30 ml TID LANCE Administration Atorvastatin Calcium 80 mg 01/12/20 22:00 01/19/20 22:09 Lipitor - PO 80 mg HS LANCE Administration Chlorhexidine Gluconate 1 applic 01/10/20 22:00 01/19/20 22:10 Hibiclens For Decolonization - TP 1 applic HS LANCE Administration Collagenase 1 applic 01/11/20 14:15 01/19/20 16:45 Santyl - TP 1 applic DAILY LANCE Administration Protocol Heparin Sodium (Porcine) 5,000 unit 01/18/20 22:00 01/20/20 13:34 Heparin - SQ 5,000 unit TID LANCE Administration Propofol 1,000,000 mcg in 100 mls @ 3.876 mls/hr 01/20/20 14:01 01/20/20 13:15 Diprivan - IVPB 15 mcg/kg/min TITR LANCE 11.628 mls/hr Titration Protocol 5 MCG/KG/MIN Insulin Aspart 1 vial 01/10/20 22:00 01/20/20 11:07 Novolog Vial Sliding Scale - SQ 4 units ACHS LANCE Administration Protocol Metoprolol Tartrate 5 mg 01/20/20 03:09 01/20/20 03:20 Lopressor Injection - IVPUSH 5 mg Q4H PRN Administration TACHYCARDIA Pantoprazole Sodium 40 mg 01/13/20 10:00 01/20/20 10:27 Protonix Iv IVPUSH 40 mg DAILY LANCE Administration Vancomycin HCl 250 mg 01/18/20 18:00 01/20/20 11:53 Vancomycin Oral Solution PO 250 mg Q6HPO LANCE Administration ASSESSMENT/PLAN: 54 yo F w/ PMH CKD , afib (Eliquis), DM, HTN, chronic LE ulcers . admitted for acute toxic metabolic encephalopathy, admitted to ICU for septic shock requiring pressor support. 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 - maintain SBP <140 - will try to reassess mental status again off propofol tomorrow Pulmonary - intubated - Stopped sedation, patient still did not wake up today did not tolerate CPAP, became tachy and tachypneic patient started on propofol and d/c midazalem and fentanly will try to reassess mental status again off propofol tomorrow - monitor and maintain Spo2>90% Cardio - in Afib, rate controlled - on vasopressin, levophed - Cardio consulted Echocardiogram 01/14/2020 Normal LV size and function EF 60% -65 - continue statin GI - no acute issues - PPI Endo - DM - hold home PO meds - c/w ISS + BGM ACHS ID - septic shock likely 2/2 cellulitis - Vascular surgeon consulted for LE ulcers - ID consulted (Dr. Iyer) leukocytosis: antibiotics d/c 01/17 cdiff +: started on PO vanc 250 mg q6h >> day 3 blood cultures - no growth so far Renal - Renal failure requiring HD - Nephro consulted (Dr. Epstein) no longer needs HD Monitor I/O's monitor electrolytes Heme / Onc - heme consulted (Dr. Rubio) thrombocytopenia likely 2/2 meropenem - s/q heparin FEN - monitor and replete electrolytes - enteral feeds LTD - cuevas - flexi seal - RIJ placed 01/17 DVT Ppx - Heparin sq TID GI Ppx - IV protonix 40 Visit type - Emergency Visit Emergency Visit: Yes ED Registration Date: 01/10/20 Care time: The patient presented to the Emergency Department on the above date and was hospitalized for further evaluation of their emergent condition. - New Patient This patient is new to me today: No - Critical Care Critical Care patient: Yes Total Critical Care Time (in minutes): 35 Critical Care Statement: The care of this patient involved high complexity decision making to prevent further life threatening deterioration of the patient's condition and/or to evaluate & treat vital organ system(s) failure or risk of failure. ATTENDING PHYSICIAN STATEMENT I saw and evaluated the patient. I reviewed the resident's note and discussed the case with the resident. I agree with the resident's findings and plan as documented. SUBJECTIVE: OBJECTIVE: ASSESSMENT AND PLAN:
[2020-01-20] MEDS: ATORVASTATIN CA 80 MG TABLET (FP) PO SCH (21:13)
[2020-01-20] MEDS: CHLORHEXIDINE GLUCONATE 4% CLEANSER FOR DECOLONIZATION TP SCH (21:14)
[2020-01-21] MEDS ORDERED: FENTANYL NS IVPB 0 MCG/0 ML BAG IVPB ONE (01:19)
[2020-01-21] MEDS: VANCOMYCIN 250 MG/5 ML ORAL SOLUTION PO SCH ×4 (06:09→17:43)
[2020-01-21] MEDS: HEPARIN NA (PORCINE) 5,000 UNITS/ML 1ML VIAL SQ SCH (06:09)
[2020-01-21] MEDS: AMINO ACIDS/PROTEIN HYDROLYS 30 ML LIQUID.PKT PO SCH ×3 (06:10→22:16)
[2020-01-21] MEDS: INSULIN SLIDING SCALE (NOVOLOG) 1 VIAL SQ SCH ×4 (06:10→22:21)
[2020-01-21 06:32] LABS: ARTERIAL BLD GAS O2 SATURATION 92.4 mmHg (95-98); ARTERIAL BLOOD GAS BASE EXCESS -3.3 mmol/L (-2-2); ARTERIAL BLOOD GAS PO2 60.8 mmHg (80-100); ARTERIAL BLOOD GAS pH 7.434 (7.350-7.450)
[2020-01-21 06:47] LABS: ALLENS TEST POSITIVE
[2020-01-21 06:48] LABS: VENT MODE A/C; VENT RATE 22
[2020-01-21 07:35] LABS: HEMATOCRIT 27.4 % (32.4-45.2); HEMOGLOBIN 8.7 GM/dL (10.7-15.3); MCH 27.4 pg (25.7-33.7); MCHC 31.8 g/dl (32.0-36.0); MEAN CELL VOLUME 86.4 fl (80-96); MEAN PLT VOLUME 10.1 fl (7.5-11.1); PLATELET COUNT 295 K/MM3 (134-434); RBC 3.18 M/mm3 (3.60-5.2); RDW 14.8 % (11.6-15.6); WHITE BLOOD COUNT 16.9 K/mm3 (4.0-10.0)
[2020-01-21 08:06] LABS: ALBUMIN 1.9 g/dl (3.4-5.0); BILIRUBIN,TOTAL 0.5 mg/dL (0.2-1); BLOOD UREA NITROGEN 76.7 mg/dL (7-18); CALCIUM 9.1 mg/dL (8.5-10.1); CREATININE 1.5 mg/dL (0.55-1.3); MAGNESIUM 1.9 mg/dL (1.8-2.4); PHOSPHOROUS 3.7 mg/dL (2.5-4.9); POTASSIUM 3.6 mmol/L (3.5-5.1)
[2020-01-21] MEDS: METOPROLOL TARTRATE 5 MG/5 ML VIAL IVPUSH PRN ×3 (08:15→19:17)
[2020-01-21] MEDS: PROPOFOL 1,000,000 MCG/100 ML VIAL IVPB SCH ×3 (08:16→17:42)
--- NOTE | 2020-01-21 08:31 | PN ---
Progress Note, Physician Chief Complaint: Today patient is much more alert and following vitals Low grade fever overnight with max 100.4, now 99.8, in a-fib 110-120bpm, off pressors, maintaining a MAP >70mmHg. Remains vented and Sedated-on propofol at 20mcg/kg/min. Tube feeds continue, continues to have diarrhea-flexiseal in place, cuevas in place with good urine output. - Current Medication List Current Medications: Active Medications Amino Acids (Prosource No Carb Liquid Pkt) 30 ml PO TID LANCE Last Admin: 01/21/20 06:10 Dose: 30 ml Documented by: Atorvastatin Calcium (Lipitor -) 80 mg PO HS LANCE Last Admin: 01/20/20 21:13 Dose: 80 mg Documented by: Chlorhexidine Gluconate (Hibiclens For Decolonization -) 1 applic TP HS LANCE Last Admin: 01/20/20 21:14 Dose: 1 applic Documented by: Collagenase (Santyl -) 1 applic TP DAILY [facility]; Protocol Last Admin: 01/20/20 14:00 Dose: 1 applic Documented by: Heparin Sodium (Porcine) (Heparin -) 5,000 unit SQ TID LANCE Last Admin: 01/21/20 06:09 Dose: 5,000 unit Documented by: Propofol (Diprivan -) 1,000,000 mcg in 100 mls @ 3.876 mls/hr IVPB TITR [facility]; Protocol Last Admin: 01/21/20 08:16 Dose: 25 mcg/kg/min, 19.38 mls/hr Documented by: Insulin Aspart (Novolog Vial Sliding Scale -) 1 vial SQ ACHS [facility]; Protocol Last Admin: 01/21/20 06:10 Dose: 4 units Documented by: Metoprolol Tartrate (Lopressor Injection -) 5 mg IVPUSH Q4H PRN PRN Reason: TACHYCARDIA Last Admin: 01/21/20 08:15 Dose: 5 mg Documented by: Pantoprazole Sodium (Protonix Iv) 40 mg IVPUSH DAILY [facility] Last Admin: 01/20/20 10:27 Dose: 40 mg Documented by: Vancomycin HCl (Vancomycin Oral Solution) 250 mg PO Q6HPO [facility] Last Admin: 01/21/20 06:09 Dose: 250 mg Documented by: - Objective Vital Signs: Vital Signs Temperature 99.5 F 01/21/20 08:00 Pulse Rate 122 H 01/21/20 08:15 Respiratory Rate 26 H 01/21/20 08:00 Blood Pressure 141/93 01/21/20 08:15 O2 Sat by Pulse Oximetry (%) 96 01/21/20 08:00 Constitutional: Yes: Mild Distress Cardiovascular: Yes: Tachycardia, Pulse Irregular Respiratory: Yes: Mechanically Ventilated ...Rectal Exam: Yes: Other (rectal tube) Genitourinary: Yes: Cuevas Present Musculoskeletal: Yes: Muscle Weakness Extremities: Yes: Deformity Edema: Yes Integumentary: Yes: Pressure Ulcer, Rash, Skin Tear, Venous Stasis Changes Wound/Incision: Yes: Open to air, Dressing Dry and Intact, Excoriated, U napproximated Labs: CBC, BMP 01/21/20 06:00 01/21/20 06:00 INR, PTT INR 1.17 (0.83-1.09) H 01/15/20 06:30 Fibrinogen > 500.0 mg/dL (238-498) H 01/15/20 06:30 Problem List - Problems (1) ARF (acute renal failure) Code(s): N17.9 - ACUTE KIDNEY FAILURE, UNSPECIFIED Qualifiers: Acute renal failure type: unspecified Qualified Code(s): N17.9 - Acute kidney failure, unspecified (2) CVA (cerebral vascular accident) Code(s): I63.9 - CEREBRAL INFARCTION, UNSPECIFIED (3) Diabetic calf ulcer Code(s): E11.622 - TYPE 2 DIABETES MELLITUS WITH OTHER SKIN ULCER; L97.209 - NON-PRESSURE CHRONIC ULCER OF UNSP CALF WITH UNSP SEVERITY (4) Hyperkalemia Code(s): E87.5 - HYPERKALEMIA (5) Respiratory failure Code(s): J96.90 - RESPIRATORY FAILURE, UNSP, UNSP W HYPOXIA OR HYPERCAPNIA (6) Septic shock Code(s): A41.9 - SEPSIS, UNSPECIFIED ORGANISM; R65.21 - SEVERE SEPSIS WITH SEPTIC SHOCK (7) NOVA (acute kidney injury) Code(s): N17.9 - ACUTE KIDNEY FAILURE, UNSPECIFIED (8) Abdominal lymphadenopathy Code(s): R59.0 - LOCALIZED ENLARGED LYMPH NODES (9) Afib Code(s): I48.91 - UNSPECIFIED ATRIAL FIBRILLATION Qualifiers: Atrial fibrillation type: paroxysmal Qualified Code(s): I48.0 - Paroxysmal atrial fibrillation (10) Bilateral leg ulcer Code(s): L97.919 - NON-PRS CHRONIC ULC UNSP PRT OF R LOW LEG W UNSP SEVERITY; L97.929 - NON-PRS CHRONIC ULC UNSP PRT OF L LOW LEG W UNSP SEVERITY Qualifiers: Non-pressure ulcer stage: limited to breakdown of skin Qualified Code(s): L97.911 - Non-pressure chronic ulcer of unspecified part of right lower leg limited to breakdown of skin; L97.921 - Non-pressure chronic ulcer of unspecified part of left lower leg limited to breakdown of skin (11) Chronic cellulitis Code(s): L03.90 - CELLULITIS, UNSPECIFIED (12) Severe sepsis Code(s): A41.9 - SEPSIS, UNSPECIFIED ORGANISM; R65.20 - SEVERE SEPSIS WITHOUT SEPTIC SHOCK Assessment/Plan IV ABX PER ID CHECK WITH RENAL ON HD STATUS RESPIRATORY SUPPORT WEAN OFF VENT PER PULMONARY NOW OFF SEDATION EXTREMELY NON-COMPLIANT PATIENT NEEDS MEDIA RECONCILIATION SPECIALIST AND PSYCH FOR F/U AND SUPPORT GROUP DM CONTROL WOUND CARE BACTROBAN DAILY CLEAN WOUNDS APPLY DRESSINGS RECTAL TUBE INSERTED CUEVAS + OUTPUT DVT PROPHYLAXIS
[2020-01-21] MEDS: PANTOPRAZOLE SODIUM 40 MG VIAL IVPUSH SCH (09:40)
[2020-01-21] MEDS ORDERED: FUROSEMIDE 40 MG/4 ML INJECTABLE VIAL IVPUSH ONE ×2 (10:49→13:15)
--- NOTE | 2020-01-21 11:16 | PN ---
Physical Exam: SUBJECTIVE: Patient seen and examined at the bedside, intubated and sedated. OBJECTIVE: Vital Signs Period Temp Pulse Resp BP Sys/Callahan Pulse Ox Last 24 Hr 99.2 F-100.6 F 100-136 22-38 99-141/67-93 88-100 GENERAL: The patient is sedated, intubated. HEAD: Normal with no signs of trauma. EYES: PERRL ENT: intubated NECK: L IJ in place LUNGS: front upper lungs breath sounds CTA BL HEART: irregularly irregular, S1, S2 ABDOMEN: Obese, soft, nontender, nondistended EXTREMITIES: BL edema NEUROLOGICAL: Pt unresponsive to noxious stimuli SKIN:BL LE ulcers bandaged Laboratory Results - last 24 hr 01/20/20 01/20/20 01/21/20 16:55 21:03 05:50 WBC RBC Hgb Hct MCV MCH MCHC RDW Plt Count MPV Anticoagulation Therapy No Result Required. Puncture Site Right radial Patient Temperature No Result Required. ABG pH 7.434 ABG pCO2 30.80 L ABG pO2 60.8 L ABG HCO3 20.2 L ABG O2 Sat (Measured) 92.4 L ABG O2 Content No Result Required. ABG Base Excess -3.3 L Kwesi Test Positive Patient On Oxygen Yes O2 Delivery Device Vent Oxygen Flow Rate 70% Vent Mode A/c Vent Rate 22 Mechanical Rate Yes PEEP 8.0 Pressure Support Vent 500 Sodium Potassium Chloride Carbon Dioxide Anion Gap BUN Creatinine Est GFR (CKD-EPI)AfAm Est GFR (CKD-EPI)NonAf POC Glucometer 203 199 Random Glucose Calcium Phosphorus Magnesium Total Bilirubin AST ALT Alkaline Phosphatase Total Protein Albumin 01/21/20 01/21/20 01/21/20 05:53 06:00 06:00 WBC 16.9 H RBC 3.18 L Hgb 8.7 L Hct 27.4 L MCV 86.4 MCH 27.4 MCHC 31.8 L RDW 14.8 Plt Count 295 MPV 10.1 Anticoagulation Therapy Puncture Site Patient Temperature ABG pH ABG pCO2 ABG pO2 ABG HCO3 ABG O2 Sat (Measured) ABG O2 Content ABG Base Excess Kwesi Test Patient On Oxygen O2 Delivery Device Oxygen Flow Rate Vent Mode Vent Rate Mechanical Rate PEEP Pressure Support Vent Sodium 144 Potassium 3.6 Chloride 111 H Carbon Dioxide 24 Anion Gap 8 BUN 76.7 H Creatinine 1.5 H Est GFR (CKD-EPI)AfAm 44.67 Est GFR (CKD-EPI)NonAf 38.54 POC Glucometer 250 Random Glucose 255 H Calcium 9.1 Phosphorus 3.7 Magnesium 1.9 Total Bilirubin 0.5 AST 19 ALT 13 Alkaline Phosphatase 121 H Total Protein 7.0 Albumin 1.9 L Active Medications Generic Name Dose Route Start Last Admin Trade Name Freq PRN Reason Stop Dose Admin Amino Acids 30 ml 01/13/20 22:00 01/21/20 06:10 Prosource No Carb Liquid Pkt PO 30 ml TID LANCE Administration Apixaban 5 mg 01/21/20 22:00 Eliquis - PO BID LANCE Atorvastatin Calcium 80 mg 01/12/20 22:00 01/20/20 21:13 Lipitor - PO 80 mg HS LANCE Administration Chlorhexidine Gluconate 1 applic 01/10/20 22:00 01/20/20 21:14 Hibiclens For Decolonization - TP 1 applic HS LANCE Administration Collagenase 1 applic 01/11/20 14:15 01/20/20 14:00 Santyl - TP 1 applic DAILY LANCE Administration Protocol Propofol 1,000,000 mcg in 100 mls @ 3.876 mls/hr 01/20/20 14:01 01/21/20 08:1 6 Diprivan - IVPB 25 mcg/kg/min TITR LANCE 19.38 mls/hr Administration Protocol 5 MCG/KG/MIN Insulin Aspart 1 vial 01/10/20 22:00 01/21/20 06:10 Novolog Vial Sliding Scale - SQ 4 units ACHS LANCE Administration Protocol Insulin Detemir 5 units 01/21/20 22:00 Levemir Vial SQ HS LANCE Metoprolol Tartrate 5 mg 01/20/20 03:09 01/21/20 08:15 Lopressor Injection - IVPUSH 5 mg Q4H PRN Administration TACHYCARDIA Pantoprazole Sodium 40 mg 01/13/20 10:00 01/21/20 09:40 Protonix Iv IVPUSH 40 mg DAILY LANCE Administration Vancomycin HCl 250 mg 01/18/20 18:00 01/21/20 06:09 Vancomycin Oral Solution PO 250 mg Q6HPO LANCE Administration ASSESSMENT/PLAN: 54 yo F w/ PMH CKD, AF(on Eliquis), DM, HTN, chronic LE ulcers, admitted for acute toxic metabolic encephalopathy, admitted to ICU for septic shock requiring pressor support. #DRYWALL SANDER - Propofol @ 25mcg/kg #Resp - Intubated (01/10) - PEEP 8, FiO2 70%, Peak Press 28, Plat Press 23 - CXR(01/20) increased congestive changes, 40+40mg IV Lasix given #CVS - RIJ (01/17), not currently on any pressor support - AF: resumed home Eliquis since thrombocytopenia has resolved #GI - CDiff positive - Rectal rube in place #Renal - No indication for HD as per Nephro - Lokelaz DCed #ID - CDiff positive, on Vanco PO (01/17) - Sputum culture growing Senotrophomon, will treat with Levaquin 750 daily as per ID #Endo - BGMs, ISS - POC Glucose have been in the 200s, on home Lantus 15mg HS, will start on Levemir 5mg HS #Heme/Onc - Thrombocytopenia resolved after D/Cing Meropenem #FEN - Prosource #Prophylaxis - Protonix, Heparin #Dispo - ICU monitoring ATTENDING PHYSICIAN STATEMENT I saw and evaluated the patient. I reviewed the resident's note and discussed the case with the resident. I agree with the resident's findings and plan as documented. SUBJECTIVE: OBJECTIVE: ASSESSMENT AND PLAN:
--- NOTE | 2020-01-21 11:25 | PN ---
Teaching Attending Note Name of Resident: Fabricio Harrington ATTENDING PHYSICIAN STATEMENT I saw and evaluated the patient. I reviewed the resident's note and discussed the case with the resident. I agree with the resident's findings and plan as documented. SUBJECTIVE: Pt seen and examined in the ICU. Remains intubated, sedated. Remains off presso rs. Low grade fever overnight. Tachypneic off sedation. OBJECTIVE: Vital Signs Period Temp Pulse Resp BP Sys/Callahan Pulse Ox Last 24 Hr 99.2 F-100.6 F 100-136 22-38 99-141/67-93 88-100 Intake & Output 01/18/20 01/19/20 01/20/20 01/21/20 23:59 23:59 23:59 23:59 Intake Total 3359.6 1635 1626 388.5 Output Total 8800 1850 1900 1500 Balance -5440.4 -215 -274 -1111.5 Weight 138.7 kg 132 kg 129.2 kg 128 kg Gen: intubated, sedated Heart: RRR Lung: scattered rhonchi Abd: soft, nontender Ext: wrapped CBC, BMP 01/21/20 06:00 01/21/20 06:00 Active Medications Amino Acids (Prosource No Carb Liquid Pkt) 30 ml PO TID [facility] Last Admin: 01/21/20 06:10 Dose: 30 ml Documented by: Apixaban (Eliquis -) 5 mg PO BID LANCE Atorvastatin Calcium (Lipitor -) 80 mg PO HS [facility] Last Admin: 01/20/20 21:13 Dose: 80 mg Documented by: Chlorhexidine Gluconate (Hibiclens For Decolonization -) 1 applic TP HS [facility] Last Admin: 01/20/20 21:14 Dose: 1 applic Documented by: Collagenase (Santyl -) 1 applic TP DAILY [facility]; Protocol Last Admin: 01/20/20 14:00 Dose: 1 applic Documented by: Propofol (Diprivan -) 1,000,000 mcg in 100 mls @ 3.876 mls/hr IVPB TITR [facility]; Protocol Last Admin: 01/21/20 08:16 Dose: 25 mcg/kg/min, 19.38 mls/hr Documented by: Insulin Aspart (Novolog Vial Sliding Scale -) 1 vial SQ ACHS [facility]; Protocol Last Admin: 01/21/20 06:10 Dose: 4 units Documented by: Insulin Detemir (Levemir Vial) 5 units SQ HS [facility] Metoprolol Tartrate (Lopressor Injection -) 5 mg IVPUSH Q4H PRN PRN Reason: TACHYCARDIA Last Admin: 01/21/20 08:15 Dose: 5 mg Documented by: Pantoprazole Sodium (Protonix Iv) 40 mg IVPUSH DAILY [facility] Last Admin: 01/21/20 09:40 Dose: 40 mg Documented by: Vancomycin HCl (Vancomycin Oral Solution) 250 mg PO Q6HPO [facility] Last Admin: 01/21/20 06:09 Dose: 250 mg Documented by: ASSESSMENT AND PLAN: Acute Hypoxic Respiratory Failure Cellulitis Septic Shock Acute on Chronic Renal Failure Atrial Fibrillation HTN DM Morbid Obesity BARRY/OHS C Diff Colitis - repeat CXR - continue antibiotics - off pressors, maintain MAP>65 - monitor urine output, creatinine - titrate FiO2, PEEP to keep SpO2 >90% - wound care - daily sedation vacations to assess mental status - enteral feeds - DVT/GI prophylaxis - continue ICU monitoring critical care time spent in reviewing chart, evaluating patient and formulating plan 35 min
[2020-01-21] MEDS ORDERED: PT OWN MED DRAWER 7, Y5N ONE (13:12)
[2020-01-21] MEDS ORDERED: PROPOFOL 1,000,000 MCG/100 ML VIAL ONE (14:07)
[2020-01-21] MEDS: COLLAGENASE CLOSTRIDIUM HIST. 30 GRAMS TUBE TP SCH (14:30)
[2020-01-21] MEDS: ACETAMINOPHEN 325 MG TABLET (FP) PO PRN ×2 (15:47→23:11)
--- NOTE | 2020-01-21 17:31 | PN ---
Progress Note (short form) - Note Progress Note: remains intubated and sedated no pressors Vital Signs Period Temp Pulse Resp BP Sys/Callahan Pulse Ox Last 24 Hr 99.2 F-101.1 F 100-134 22-27 107-141/67-93 92-100 cor-rrr lungs decreased bs at bases abd soft,nt ext wounds clean CBC, BMP 01/21/20 06:00 01/21/20 06:00 Microbiology 01/18/20 21:35 Sputum - Endotrachea Suction/Ventilator Gram Stain - Final 01/18/20 21:35 Sputum - Endotrachea Suction/Ventilator Sputum Culture - Preliminary Non Lactose Fermenting Gnb Yeast Like Organism 01/16/20 10:02 Blood - Peripheral Venous Blood Culture - Final NO GROWTH AFTER 5 DAYS INCUBATION 01/16/20 10:02 Blood - Peripheral Venous Blood Culture - Final NO GROWTH AFTER 5 DAYS INCUBATION 01/18/20 18:00 Blood - Central Line Blood Culture - Preliminary NO GROWTH OBTAINED AFTER 48 HOURS, INCUBATION TO CONTINUE FOR 3 DAYS. 01/18/20 18:00 Blood - Central Line Blood Culture - Preliminary NO GROWTH OBTAINED AFTER 48 HOURS, INCUBATION TO CONTINUE FOR 3 DAYS. 01/17/20 12:50 Sputum - Endotrachea Suction/Ventilator Gram Stain - Final 01/17/20 12:50 Sputum - Endotrachea Suction/Ventilator Sputum Culture - Final Stenotrophomon.(X.)Maltophilia Yeast Like Organism 01/17/20 15:00 Stool Clostridioides difficile Antigen - Final 01/17/20 15:00 Stool Clostridioides difficile Toxin Assay - Final 01/10/20 11:10 Blood - Peripheral Venous Blood Culture - Final NO GROWTH AFTER 5 DAYS INCUBATION 01/10/20 11:10 Blood - Peripheral Venous Blood Culture - Final NO GROWTH AFTER 5 DAYS INCUBATION 01/10/20 11:10 Leg - Right Lower Gram Stain - Final 01/10/20 11:10 Leg - Right Lower Wound Culture - Final Klebsiella Pneumoniae Proteus Mirabilis Enterococcus Avium Lactose Fermenting Neg Bacilli 01/10/20 16:00 Urine - Urine - Catheterized Urine Culture - Final NO GROWTH OBTAINED a/p fevers again- worsening leukocytosis +cdiff antigen with diarrhea, po vancomycin day #3 line changed start levaquin after cultures-sputum culture with xanthamonas resistant to fortaz resp failure-weaning trials as tolerated renal failure improved chronic venous stasis ulcers improved new CVA pen allergy d/w resident Problem List - Problems (1) Septic shock Code(s): A41.9 - SEPSIS, UNSPECIFIED ORGANISM; R65.21 - SEVERE SEPSIS WITH SEPTIC SHOCK (2) ARF (acute renal failure) Code(s): N17.9 - ACUTE KIDNEY FAILURE, UNSPECIFIED Qualifiers: Acute renal failure type: unspecified Qualified Code(s): N17.9 - Acute kidney failure, unspecified (3) Respiratory failure Code(s): J96.90 - RESPIRATORY FAILURE, UNSP, UNSP W HYPOXIA OR HYPERCAPNIA (4) Penicillin allergy Code(s): Z88.0 - ALLERGY STATUS TO PENICILLIN
--- NOTE | 2020-01-21 18:12 | PN ---
Progress Note, Physician History of Present Illness: Pt seen and examined at bedside. She remains in the ICU. She remains intubated. - Current Medication List Current Medications: Active Medications Acetaminophen (Tylenol -) 650 mg PO Q6H PRN PRN Reason: FEVER Last Admin: 01/21/20 15:47 Dose: 650 mg Documented by: Amino Acids (Prosource No Carb Liquid Pkt) 30 ml PO TID [facility] Last Admin: 01/21/20 13:19 Dose: 30 ml Documented by: Apixaban (Eliquis -) 5 mg PO BID [facility] Atorvastatin Calcium (Lipitor -) 80 mg PO HS [facility] Last Admin: 01/20/20 21:13 Dose: 80 mg Documented by: Chlorhexidine Gluconate (Hibiclens For Decolonization -) 1 applic TP HS [facility] Last Admin: 01/20/20 21:14 Dose: 1 applic Documented by: Collagenase (Santyl -) 1 applic TP DAILY [facility]; Protocol Last Admin: 01/21/20 14:30 Dose: 1 applic Documented by: Propofol (Diprivan -) 1,000,000 mcg in 100 mls @ 3.876 mls/hr IVPB TITR [facility]; Protocol Last Admin: 01/21/20 17:42 Dose: 25 mcg/kg/min, 19.38 mls/hr Documented by: Insulin Aspart (Novolog Vial Sliding Scale -) 1 vial SQ ACHS [facility]; Protocol Last Admin: 01/21/20 16:35 Dose: 4 units Documented by: Insulin Detemir (Levemir Vial) 5 units SQ HS [facility] Levofloxacin (Levaquin) 750 mg PO DAILY@0600 [facility] Metoprolol Tartrate (Lopressor Injection -) 5 mg IVPUSH Q4H PRN PRN Reason: TACHYCARDIA Last Admin: 01/21/20 13:19 Dose: 5 mg Documented by: Pantoprazole Sodium (Protonix Iv) 40 mg IVPUSH DAILY [facility] Last Admin: 01/21/20 09:40 Dose: 40 mg Documented by: Vancomycin HCl (Vancomycin Oral Solution) 250 mg PO Q6HPO [facility] Last Admin: 01/21/20 17:43 Dose: 250 mg Documented by: - Objective Vital Signs: Vital Signs Temperature 101.1 F H 01/21/20 16:00 Pulse Rate 108 H 01/21/20 14:00 Respiratory Rate 27 H 01/21/20 17:03 Blood Pressure 123/84 01/21/20 16:00 O2 Sat by Pulse Oximetry (%) 98 01/21/20 16:00 Constitutional: Yes: Calm Eyes: Yes: Conjunctiva Clear HENT: Yes: Atraumatic Cardiovascular: Yes: S1, S2 Respiratory: Yes: Mechanically Ventilated Gastrointestinal: Yes: Soft, Abdomen, Obese Genitourinary: Yes: WNL, Johnson Present Edema: Yes Edema: LLE: Trace, RLE: Trace Wound/Incision: Yes: Dressing Dry and Intact Neurological: Yes: Lethargy Labs: CBC, BMP 01/21/20 06:00 01/21/20 06:00 INR, PTT INR 1.17 (0.83-1.09) H 01/15/20 06:30 Fibrinogen > 500.0 mg/dL (238-498) H 01/15/20 06:30 Problem List - Problems (1) NOVA (acute kidney injury) Code(s): N17.9 - ACUTE KIDNEY FAILURE, UNSPECIFIED (2) DM2 (diabetes mellitus, type 2) Code(s): E11.9 - TYPE 2 DIABETES MELLITUS WITHOUT COMPLICATIONS Qualifiers: Diabetes mellitus product assurance engineer insulin use: with nursing home use Diabetes mellitus complication detail: with other circulatory complications (3) Hyperkalemia Code(s): E87.5 - HYPERKALEMIA (4) Metabolic acidosis Code(s): E87.2 - ACIDOSIS Assessment/Plan Current Medications Generic Name Dose Route Start Last Admin Trade Name Freq PRN Reason Stop Dose Admin Acetaminophen 650 mg 01/21/20 15:23 01/21/20 15:47 Tylenol - PO 650 mg Q6H PRN Administration FEVER Amino Acids 30 ml 01/13/20 22:00 01/21/20 13:19 Prosource No Carb Liquid Pkt PO 30 ml TID [facility] Administration Apixaban 5 mg 01/21/20 22:00 Eliquis - PO BID [facility] Atorvastatin Calcium 80 mg 01/12/20 22:00 01/20/20 21:13 Lipitor - PO 80 mg HS [facility] Administration Chlorhexidine Gluconate 1 applic 01/10/20 22:00 01/20/20 21:14 Hibiclens For Decolonization - TP 1 applic HS [facility] Administration Collagenase 1 applic 01/11/20 14:15 01/21/20 14:30 Santyl - TP 1 applic DAILY [facility] Administration Protocol Propofol 1,000,000 mcg in 100 mls @ 3.876 mls/hr 01/20/20 14:01 01/21/20 17:42 Diprivan - IVPB 25 mcg/kg/min TITR [facility] 19.38 mls/hr Administration Protocol 5 MCG/KG/MIN Insulin Aspart 1 vial 01/10/20 22:00 01/21/20 16:35 Novolog Vial Sliding Scale - SQ 4 units ACHS [facility] Administration Protocol Insulin Detemir 5 units 01/21/20 22:00 Levemir Vial SQ HS [facility] Levofloxacin 750 mg 01/22/20 06:00 Levaquin PO DAILY@0600 [facility] Metoprolol Tartrate 5 mg 01/20/20 03:09 01/21/20 13:19 Lopressor Injection - IVPUSH 5 mg Q4H PRN Administration TACHYCARDIA Pantoprazole Sodium 40 mg 01/13/20 10:00 01/21/20 09:40 Protonix Iv IVPUSH 40 mg DAILY [facility] Administration Vancomycin HCl 250 mg 01/18/20 18:00 01/21/20 17:43 Vancomycin Oral Solution PO 250 mg Q6HPO [facility] Administration Impression 1. NOVA 2. hyperkalemia 3. obesity 4. DM 5. a-fib 6. HTN 7. chronic lower extremity ulcers 8. gastritis 9. sepsis 10. hyperglycemia 11. metabolic acidosis 12. peripheral vascular disease 13. acute resp failure 14. shock 15. cva 16. thrombocytopenia Plan - renal function stabilizing - cont to monitor bell attendant - cont vent support - repeat labs in am - monitor bp - avoid nsaids - avoid nephrotoxins - pt shows renal recovery, no indication for further HD
[2020-01-21] MEDS ORDERED: APIXABAN 5 MG TABLET PO SCH (22:00)
[2020-01-21] MEDS: ATORVASTATIN CA 80 MG TABLET (FP) PO SCH (22:16)
[2020-01-21] MEDS: INSULIN (LEVEMIR) 100 UNITS/ML UNITS SQ SCH (22:16)
[2020-01-21] MEDS: CHLORHEXIDINE GLUCONATE 4% CLEANSER FOR DECOLONIZATION TP SCH (22:16)
[2020-01-22] MEDS ORDERED: PT OWN MED DRAWER 7, Y5N ONE ×2 (01:12→05:22)
[2020-01-22] MEDS: VANCOMYCIN 250 MG/5 ML ORAL SOLUTION PO SCH ×5 (01:31→23:55)
[2020-01-22] MEDS: METOPROLOL TARTRATE 5 MG/5 ML VIAL IVPUSH PRN ×2 (02:31→19:42)
[2020-01-22] MEDS: AMINO ACIDS/PROTEIN HYDROLYS 30 ML LIQUID.PKT PO SCH ×3 (05:28→21:46)
[2020-01-22] MEDS ORDERED: levoFLOXacin 750 MG TABLET PO SCH (06:00)
[2020-01-22] MEDS: INSULIN SLIDING SCALE (NOVOLOG) 1 VIAL SQ SCH ×4 (06:11→22:00)
[2020-01-22 07:08] LABS: BASO % 0.8 % (0-2.0); EOS % 1.8 % (0-4.5); HEMOGLOBIN 8.6 GM/dL (10.7-15.3); LYMPH % 7.3 % (8-40); MCH 27.8 pg (25.7-33.7); MCHC 31.7 g/dl (32.0-36.0); MEAN CELL VOLUME 87.7 fl (80-96); MEAN PLT VOLUME 10.2 fl (7.5-11.1); MONO % 6.2 % (3.8-10.2); NEUT % 83.9 % (42.8-82.8); PLATELET COUNT 336 K/MM3 (134-434); RBC 3.08 M/mm3 (3.60-5.2); RDW 14.6 % (11.6-15.6); WHITE BLOOD COUNT 20.7 K/mm3 (4.0-10.0)
[2020-01-22 07:34] LABS: BILIRUBIN,TOTAL 0.3 mg/dL (0.2-1); BLOOD UREA NITROGEN 70.4 mg/dL (7-18); CALCIUM 9.2 mg/dL (8.5-10.1); CREATININE 1.5 mg/dL (0.55-1.3); MAGNESIUM 1.8 mg/dL (1.8-2.4); PHOSPHOROUS 3.8 mg/dL (2.5-4.9); POTASSIUM 3.4 mmol/L (3.5-5.1); TOT PROT 7.2 g/dl (6.4-8.2)
[2020-01-22] MEDS: KCL 10 MEQ IVPB 10 MEQ/100 ML INFUS.BAG IVPB SCH ×3 (08:45→10:59)
[2020-01-22 09:43] LABS: ANISOCYTOSIS 2+; MACROCYTOSIS 0; PLATELET ESTIMATE NORMAL
--- NOTE | 2020-01-22 10:48 | PN ---
Progress Note (short form) - Note Progress Note: remains intubated and sedated no pressors for head ct today Vital Signs Period Temp Pulse Resp BP Sys/Callahan Pulse Ox Last 24 Hr 99.5 F-101.1 F 102-134 22-27 120-134/69-96 91-100 cor-rrr lungs decreased bs at bases abd soft nt ext wounds clean, left forearm blister CBC, BMP 01/22/20 06:00 01/22/20 06:00 Microbiology 01/18/20 18:00 Blood - Central Line Blood Culture - Preliminary NO GROWTH OBTAINED AFTER 72 HOURS, INCUBATION TO CONTINUE FOR 2 DAYS. 01/18/20 18:00 Blood - Central Line Blood Culture - Preliminary NO GROWTH OBTAINED AFTER 72 HOURS, INCUBATION TO CONTINUE FOR 2 DAYS. 01/18/20 21:35 Sputum - Endotrachea Suction/Ventilator Gram Stain - Final 01/18/20 21:35 Sputum - Endotrachea Suction/Ventilator Sputum Culture - Preliminary Non Lactose Fermenting Gnb Yeast Like Organism 01/16/20 10:02 Blood - Peripheral Venous Blood Culture - Final NO GROWTH AFTER 5 DAYS INCUBATION 01/16/20 10:02 Blood - Peripheral Venous Blood Culture - Final NO GROWTH AFTER 5 DAYS INCUBATION 01/17/20 12:50 Sputum - Endotrachea Suction/Ventilator Gram Stain - Final 01/17/20 12:50 Sputum - Endotrachea Suction/Ventilator Sputum Culture - Final Stenotrophomon.(X.)Maltophilia Yeast Like Organism 01/17/20 15:00 Stool Clostridioides difficile Antigen - Final 01/17/20 15:00 Stool Clostridioides difficile Toxin Assay - Final 01/10/20 11:10 Blood - Peripheral Venous Blood Culture - Final NO GROWTH AFTER 5 DAYS INCUBATION 01/10/20 11:10 Blood - Peripheral Venous Blood Culture - Final NO GROWTH AFTER 5 DAYS INCUBATION 01/10/20 11:10 Leg - Right Lower Gram Stain - Final 01/10/20 11:10 Leg - Right Lower Wound Culture - Final Klebsiella Pneumoniae Proteus Mirabilis Enterococcus Avium Lactose Fermenting Neg Bacilli 01/10/20 16:00 Urine - Urine - Catheterized Urine Culture - Final NO GROWTH OBTAINED a/p fevers again- worsening leukocytosis +cdiff antigen with diarrhea, po vancomycin day #3 line changed continue levaquin resp failure-weaning trials as tolerated renal failure improved chronic venous stasis ulcers improved new CVA-repeat head ct today thrombocytopenia resolved pen allergy d/w resident Problem List - Problems (1) Septic shock Code(s): A41.9 - SEPSIS, UNSPECIFIED ORGANISM; R65.21 - SEVERE SEPSIS WITH SEPTIC SHOCK (2) ARF (acute renal failure) Code(s): N17.9 - ACUTE KIDNEY FAILURE, UNSPECIFIED Qualifiers: Acute renal failure type: unspecified Qualified Code(s): N17.9 - Acute kidney failure, unspecified (3) Respiratory failure Code(s): J96.90 - RESPIRATORY FAILURE, UNSP, UNSP W HYPOXIA OR HYPERCAPNIA (4) Penicillin allergy Code(s): Z88.0 - ALLERGY STATUS TO PENICILLIN
--- NOTE | 2020-01-22 10:54 | PN ---
Progress Note, Physician Chief Complaint: OFF PRESSORS STILL SEDATED AND INTUBATED EVENTS AND NOTES REVIEWED - Current Medication List Current Medications: Active Medications Acetaminophen (Tylenol -) 650 mg PO Q6H PRN PRN Reason: FEVER Last Admin: 01/21/20 23:11 Dose: 650 mg Documented by: Amino Acids (Prosource No Carb Liquid Pkt) 30 ml PO TID [facility] Last Admin: 01/22/20 05:28 Dose: 30 ml Documented by: Atorvastatin Calcium (Lipitor -) 80 mg PO HS [facility] Last Admin: 01/21/20 22:16 Dose: 80 mg Documented by: Chlorhexidine Gluconate (Hibiclens For Decolonization -) 1 applic TP HS [facility] Last Admin: 01/21/20 22:16 Dose: 1 applic Documented by: Collagenase (Santyl -) 1 applic TP DAILY [facility]; Protocol Last Admin: 01/21/20 14:30 Dose: 1 applic Documented by: Furosemide (Lasix Injection -) 40 mg IVPUSH ONCE ONE Stop: 01/22/20 10:32 Propofol (Diprivan -) 1,000,000 mcg in 100 mls @ 3.876 mls/hr IVPB TITR [facility]; Protocol Last Titration: 01/21/20 18:00 Dose: 30 mcg/kg/min, 23.256 mls/hr Documented by: Potassium Chloride (Potassium Chloride 10 Meq Premix Ivpb -) 10 meq in 100 mls @ 100 mls/hr IVPB Q60M [facility] Stop: 01/22/20 11:29 Levofloxacin (Levaquin 750 Mg Premixed Ivpb -) 750 mg in 150 mls @ 150 mls/hr IVPB DAILY [facility]; Protocol Insulin Aspart (Novolog Vial Sliding Scale -) 1 vial SQ ACHS [facility]; Protocol Last Admin: 01/22/20 06:11 Dose: 4 units Documented by: Insulin Detemir (Levemir Vial) 5 units SQ [facility] Last Admin: 01/21/20 22:16 Dose: 5 units Documented by: Metoprolol Tartrate (Lopressor Injection -) 5 mg IVPUSH Q4H PRN PRN Reason: TACHYCARDIA Last Admin: 01/22/20 02:31 Dose: 5 mg Documented by: Pantoprazole Sodium (Protonix Iv) 40 mg IVPUSH DAILY [facility] Last Admin: 01/21/20 09:40 Dose: 40 mg Documented by: Vancomycin HCl (Vancomycin Oral Solution) 250 mg PO Q6HPO [facility] Last Admin: 01/22/20 05:28 Dose: 250 mg Documented by: - Objective Vital Signs: Vital Signs Temperature 99.5 F 01/22/20 06:00 Pulse Rate 107 H 01/22/20 08:35 Respiratory Rate 26 H 01/22/20 08:36 Blood Pressure 121/96 01/22/20 06:00 O2 Sat by Pulse Oximetry (%) 98 01/22/20 08:36 Constitutional: Yes: Other Cardiovascular: Yes: Tachycardia, Pulse Irregular Respiratory: Yes: Mechanically Ventilated Gastrointestinal: Yes: Abdomen, Obese Genitourinary: Yes: Dc Present Musculoskeletal: Yes: Muscle Weakness Edema: Yes Wound/Incision: Yes: Dressing Dry and Intact Neurological: Yes: Pre-Existing Deficit Labs: CBC, BMP 01/22/20 06:00 01/22/20 06:00 INR, PTT INR 1.17 (0.83-1.09) H 01/15/20 06:30 Fibrinogen > 500.0 mg/dL (238-498) H 01/15/20 06:30 Problem List - Problems (1) ARF (acute renal failure) Code(s): N17.9 - ACUTE KIDNEY FAILURE, UNSPECIFIED Qualifiers: Acute renal failure type: unspecified Qualified Code(s): N17.9 - Acute kidney failure, unspecified (2) CVA (cerebral vascular accident) Code(s): I63.9 - CEREBRAL INFARCTION, UNSPECIFIED (3) Diabetic calf ulcer Code(s): E11.622 - TYPE 2 DIABETES MELLITUS WITH OTHER SKIN ULCER; L97.209 - NON-PRESSURE CHRONIC ULCER OF UNSP CALF WITH UNSP SEVERITY (4) Hyperkalemia Code(s): E87.5 - HYPERKALEMIA (5) Respiratory failure Code(s): J96.90 - RESPIRATORY FAILURE, UNSP, UNSP W HYPOXIA OR HYPERCAPNIA (6) Septic shock Code(s): A41.9 - SEPSIS, UNSPECIFIED ORGANISM; R65.21 - SEVERE SEPSIS WITH SEPTIC SHOCK (7) NOVA (acute kidney injury) Code(s): N17.9 - ACUTE KIDNEY FAILURE, UNSPECIFIED (8) Abdominal lymphadenopathy Code(s): R59.0 - LOCALIZED ENLARGED LYMPH NODES (9) Afib Code(s): I48.91 - UNSPECIFIED ATRIAL FIBRILLATION Qualifiers: Atrial fibrillation type: paroxysmal Qualified Code(s): I48.0 - Paroxysmal atrial fibrillation (10) Bilateral leg ulcer Code(s): L97.919 - NON-PRS CHRONIC ULC UNSP PRT OF R LOW LEG W UNSP SEVERITY; L97.929 - NON-PRS CHRONIC ULC UNSP PRT OF L LOW LEG W UNSP SEVERITY Qualifiers: Non-pressure ulcer stage: limited to breakdown of skin Qualified Code(s): L97.911 - Non-pressure chronic ulcer of unspecified part of right lower leg limited to breakdown of skin; L97.921 - Non-pressure chronic ulcer of unspecified part of left lower leg limited to breakdown of skin (11) Chronic cellulitis Code(s): L03.90 - CELLULITIS, UNSPECIFIED (12) Severe sepsis Code(s): A41.9 - SEPSIS, UNSPECIFIED ORGANISM; R65.20 - SEVERE SEPSIS WITHOUT SEPTIC SHOCK Assessment/Plan IV ABX PER ID OFF NOREPINEPHRINE CHECK WITH RENAL ON HD STATUS RESPIRATORY SUPPORT WEAN OFF VENT PER PULMONARY NOW OFF SEDATION EXTREMELY NON-COMPLIANT PATIENT NEEDS LEASE OUT MAN AND PSYCH FOR F/U AND SUPPORT GROUP DM CONTROL WOUND CARE BACTROBAN DAILY CLEAN WOUNDS APPLY DRESSINGS RECTAL TUBE INSERTED DC + OUTPUT DVT PROPHYLAXIS
[2020-01-22] MEDS: PANTOPRAZOLE SODIUM 40 MG VIAL IVPUSH SCH (10:59)
[2020-01-22] MEDS: COLLAGENASE CLOSTRIDIUM HIST. 30 GRAMS TUBE TP SCH (10:59)
--- NOTE | 2020-01-22 11:10 | PN ---
Physical Exam: SUBJECTIVE: Patient seen and examined bedside, intubated and sedated on propofol. OBJECTIVE: Vital Signs 01/22/20 01/22/20 04:00 06:00 Temperature 99.5 F Pulse Rate 107 H 111 H Respiratory 23 H 24 H Rate Blood Pressure 127/78 121/96 O2 Sat by Pulse 100 100 Oximetry (%) GENERAL: The patient is sedated, intubated. HEAD: Normal with no signs of trauma. EYES: PERRL ENT: intubated NECK: R IJ in place LUNGS: front upper lungs breath sounds CTA BL HEART: irregularly irregular, S1, S2 ABDOMEN: Obese, soft, nontender, nondistended EXTREMITIES: BL edema NEUROLOGICAL: Pt unresponsive to noxious stimuli SKIN: BL LE ulcers bandaged Intake & Output 01/19/20 01/20/20 01/21/20 01/22/20 23:59 23:59 23:59 23:59 Intake Total 1635 1626 388.5 1227 Output Total 1850 1900 3650 2900 Balance -215 -274 -3261.5 -1673 Weight 291 lb 0.163 oz 284 lb 13.396 oz 282 lb 3.067 oz 278 lb 14.156 oz Laboratory Results - last 24 hr 01/21/20 01/21/20 01/21/20 11:30 16:34 22:20 WBC RBC Hgb Hct MCV MCH MCHC RDW Plt Count MPV Absolute Neuts (auto) Neutrophils % Neutrophils % (Manual) Band Neutrophils % Lymphocytes % Lymphocytes % (Manual) Monocytes % Monocytes % (Manual) Eosinophils % Eosinophils % (Manual) Basophils % Basophils % (Manual) Myelocytes % (Man) Promyelocytes % (Man) Blast Cells % (Manual) Nucleated RBC % Metamyelocytes Hypochromia Platelet Estimate Polychromasia Poikilocytosis Basophilic Stippling Anisocytosis Microcytosis Macrocytosis Sodium Potassium Chloride Carbon Dioxide Anion Gap BUN Creatinine Est GFR (CKD-EPI)AfAm Est GFR (CKD-EPI)NonAf POC Glucometer 257 242 214 Random Glucose Calcium Phosphorus Magnesium Total Bilirubin AST ALT Alkaline Phosphatase Total Protein Albumin 01/22/20 01/22/20 01/22/20 05:30 06:00 06:00 WBC 20.7 H RBC 3.08 L Hgb 8.6 L Hct 27.0 L MCV 87.7 MCH 27.8 MCHC 31.7 L RDW 14.6 Plt Count 336 MPV 10.2 Absolute Neuts (auto) 17.4 H Neutrophils % 83.9 H Neutrophils % (Manual) 82.8 Band Neutrophils % 0.0 Lymphocytes % 7.3 L Lymphocytes % (Manual) 8.1 Monocytes % 6.2 Monocytes % (Manual) 6 D Eosinophils % 1.8 Eosinophils % (Manual) 3.0 Basophils % 0.8 Basophils % (Manual) 0.0 Myelocytes % (Man) 0 D Promyelocytes % (Man) 0 Blast Cells % (Manual) 0 Nucleated RBC % 0 Metamyelocytes 0 D Hypochromia 0 Platelet Estimate Normal Polychromasia 0 Poikilocytosis 0 Basophilic Stippling 1+ Anisocytosis 2+ Microcytosis 2+ Macrocytosis 0 Sodium 146 H Potassium 3.4 L Chloride 112 H Carbon Dioxide 26 Anion Gap 7 L BUN 70.4 H Creatinine 1.5 H Est GFR (CKD-EPI)AfAm 44.67 Est GFR (CKD-EPI)NonAf 38.54 POC Glucometer 244 Random Glucose 262 H Calcium 9.2 Phosphorus 3.8 Magnesium 1.8 Total Bilirubin 0.3 AST 12 L ALT 12 L Alkaline Phosphatase 119 H Total Protein 7.2 Albumin 2.0 L Active Medications Generic Name Dose Route Start Last Admin Trade Name Freq PRN Reason Stop Dose Admin Acetaminophen 650 mg 01/21/20 15:23 01/21/20 23:11 Tylenol - PO 650 mg Q6H PRN Administration FEVER Amino Acids 30 ml 01/13/20 22:00 01/22/20 05:28 Prosource No Carb Liquid Pkt PO 30 ml TID [facility] Administration Atorvastatin Calcium 80 mg 01/12/20 22:00 01/21/20 22:16 Lipitor - PO 80 mg HS [facility] Administration Chlorhexidine Gluconate 1 applic 01/10/20 22:00 01/21/20 22:16 Hibiclens For Decolonization - TP 1 applic HS [facility] Administration Collagenase 1 applic 01/11/20 14:15 01/21/20 14:30 Santyl - TP 1 applic DAILY [facility] Administration Protocol Furosemide 40 mg 01/22/20 10:31 Lasix Injection - IVPUSH 01/22/20 10:32 ONCE ONE Propofol 1,000,000 mcg in 100 mls @ 3.876 mls/hr 01/20/20 14:01 01/21/20 18:00 Diprivan - IVPB 30 mcg/kg/min TITR [facility] 23.256 mls/hr Titration Protocol 5 MCG/KG/MIN Potassium Chloride 10 meq in 100 mls @ 100 mls/hr 01/22/20 08:30 01/22/20 08:45 Potassium Chloride 10 Meq Premix Ivpb - IVPB 01/22/20 11:29 100 mls/hr Q60M [facility] Administration Levofloxacin 750 mg in 150 mls @ 150 mls/hr 01/23/20 10:00 Levaquin 750 Mg Premixed Ivpb - IVPB DAILY [facility] Protocol Insulin Aspart 1 vial 01/10/20 22:00 01/22/20 06:11 Novolog Vial Sliding Scale - SQ 4 units ACHS [facility] Administration Protocol Insulin Detemir 5 units 01/21/20 22:00 01/21/20 22:16 Levemir Vial SQ 5 units HS [facility] Administration Metoprolol Tartrate 5 mg 01/20/20 03:09 01/22/20 02:31 Lopressor Injection - IVPUSH 5 mg Q4H PRN Administration TACHYCARDIA Pantoprazole Sodium 40 mg 01/13/20 10:00 01/21/20 09:40 Protonix Iv IVPUSH 40 mg DAILY [facility] Administration Vancomycin HCl 250 mg 01/18/20 18:00 01/22/20 05:28 Vancomycin Oral Solution PO 250 mg Q6HPO [facility] Administration ASSESSMENT/PLAN: 54 yo F w/ PMH CKD , afib (Eliquis), DM, HTN, chronic LE ulcers . admitted for acute toxic metabolic encephalopathy, admitted to ICU for septic shock requiring pressor support. Neuro - intubated and sedated on propofol - repeat heat CT today - reassess mental status again off propofol Pulmonary - intubated - CXR showed increased pulmonary markings, 40 IV lasixs today repeat CXR tomorrow - attempt trials of CPAP today to wean off vent - monitor and maintain Spo2 > 90% Cardio - in Afib, rate controlled - off pressors - continue statin - no eliquis due to hx CVA GI - no acute issues - PPI Endo - DM - hold home PO meds - c/w ISS + BGM ACHS ID - septic shock likely 2/2 cellulitis - Vascular surgeon consulted for LE ulcers - ID consulted (Dr. Iyer) leukocytosis: antibiotics d/c 01/17 cdiff : po Vanc day 5 Levaquin started Fevers yesterday, new cultures pending Renal - Renal failure requiring HD - Nephro consulted (Dr. Epstein) no longer needs HD Monitor I/O's monitor electrolytes Heme / Onc - heme consulted (Dr. Rubio) thrombocytopenia likely 2/2 meropenem FEN - monitor and replete electrolytes - enteral feeds LTD - cuevas - flexi seal - RIJ placed 01/17 DVT Ppx - holding AC GI Ppx - IV protonix 40 Visit type - Emergency Visit Emergency Visit: Yes ED Registration Date: 01/10/20 Care time: The patient presented to the Emergency Department on the above date and was hospitalized for further evaluation of their emergent condition. - New Patient This patient is new to me today: No - Critical Care Critical Care patient: Yes Total Critical Care Time (in minutes): 37 Critical Care Statement: The care of this patient involved high complexity decision making to prevent further life threatening deterioration of the patient's condition and/or to evaluate & treat vital organ system(s) failure or risk of failure. - Discharge Referral Referred to [facility] No ATTENDING PHYSICIAN STATEMENT I saw and evaluated the patient. I reviewed the resident's note and discussed the case with the resident. I agree with the resident's findings and plan as documented. SUBJECTIVE: OBJECTIVE: ASSESSMENT AND PLAN:
--- NOTE | 2020-01-22 11:13 | PN ---
Teaching Attending Note Name of Resident: Terrie Yee ATTENDING PHYSICIAN STATEMENT I saw and evaluated the patient. I reviewed the resident's note and discussed the case with the resident. I agree with the resident's findings and plan as documented. SUBJECTIVE: Pt seen and examined in the ICU. Remains intubated, sedated. Remains off pressors. Febrile yesterday, restarted on antibiotics. OBJECTIVE: Vital Signs Period Temp Pulse Resp BP Sys/Callahan Pulse Ox Last 24 Hr 99.5 F-101.1 F 102-134 22-27 120-134/69-96 91-100 Intake & Output 01/19/20 01/20/20 01/21/20 01/22/20 23:59 23:59 23:59 23:59 Intake Total 1635 1626 388.5 1227 Output Total 1850 1900 3650 2900 Balance -215 -274 -3261.5 -1673 Weight 132 kg 129.2 kg 128 kg 126.5 kg Gen: intubated, sedated Heart: RRR Lung: scattered rhonchi Abd: soft, nontender Ext: wrapped CBC, BMP 01/22/20 06:00 01/22/20 06:00 Active Medications Acetaminophen (Tylenol -) 650 mg PO Q6H PRN PRN Reason: FEVER Last Admin: 01/21/20 23:11 Dose: 650 mg Documented by: Amino Acids (Prosource No Carb Liquid Pkt) 30 ml PO TID [facility] Last Admin: 01/22/20 05:28 Dose: 30 ml Documented by: Atorvastatin Calcium (Lipitor -) 80 mg PO HS [facility] Last Admin: 01/21/20 22:16 Dose: 80 mg Documented by: Chlorhexidine Gluconate (Hibiclens For Decolonization -) 1 applic TP HS [facility] Last Admin: 01/21/20 22:16 Dose: 1 applic Documented by: Collagenase (Santyl -) 1 applic TP DAILY [facility]; Protocol Last Admin: 01/22/20 10:59 Dose: 1 applic Documented by: Furosemide (Lasix Injection -) 40 mg IVPUSH ONCE ONE Stop: 01/22/20 10:32 Propofol (Diprivan -) 1,000,000 mcg in 100 mls @ 3.876 mls/hr IVPB TITR [facility]; Protocol Last Titration: 01/21/20 18:00 Dose: 30 mcg/kg/min, 23.256 mls/hr Documented by: Potassium Chloride (Potassium Chloride 10 Meq Premix Ivpb -) 10 meq in 100 mls @ 100 mls/hr IVPB Q60M [facility] Stop: 01/22/20 11:29 Last Admin: 01/22/20 10:59 Dose: 100 mls/hr Documented by: Levofloxacin (Levaquin 750 Mg Premixed Ivpb -) 750 mg in 150 mls @ 150 mls/hr IVPB DAILY [facility]; Protocol Insulin Aspart (Novolog Vial Sliding Scale -) 1 vial SQ ACHS [facility]; Protocol Last Admin: 01/22/20 06:11 Dose: 4 units Documented by: Insulin Detemir (Levemir Vial) 5 units SQ HS [facility] Last Admin: 01/21/20 22:16 Dose: 5 units Documented by: Metoprolol Tartrate (Lopressor Injection -) 5 mg IVPUSH Q4H PRN PRN Reason: TACHYCARDIA Last Admin: 01/22/20 02:31 Dose: 5 mg Documented by: Pantoprazole Sodium (Protonix Iv) 40 mg IVPUSH DAILY [facility] Last Admin: 01/22/20 10:59 Dose: 40 mg Documented by: Vancomycin HCl (Vancomycin Oral Solution) 250 mg PO Q6HPO [facility] Last Admin: 01/22/20 05:28 Dose: 250 mg Documented by: ASSESSMENT AND PLAN: Acute Hypoxic Respiratory Failure Cellulitis Pneumonia Septic Shock Acute on Chronic Renal Failure Atrial Fibrillation HTN DM Morbid Obesity BARRY/OHS C Diff Colitis - repeat CXR - continue antibiotics - off pressors, maintain MAP>65 - lasix today - monitor urine output, creatinine - titrate FiO2, PEEP to keep SpO2 >90% - wound care - daily sedation vacations to assess mental status - enteral feeds - DVT/GI prophylaxis - continue ICU monitoring critical care time spent in reviewing chart, evaluating patient and formulating plan 35 min
[2020-01-22] MEDS ORDERED: FUROSEMIDE 40 MG/4 ML INJECTABLE VIAL IVPUSH ONE (11:30)
[2020-01-22] MEDS: PROPOFOL 1,000,000 MCG/100 ML VIAL IVPB SCH (17:43)
--- NOTE | 2020-01-22 18:45 | PN ---
Progress Note, Physician History of Present Illness: Pt seen and examined at bedside. She remains in the ICU. She remains intubated. - Current Medication List Current Medications: Active Medications Acetaminophen (Tylenol -) 650 mg PO Q6H PRN PRN Reason: FEVER Last Admin: 01/21/20 23:11 Dose: 650 mg Documented by: Amino Acids (Prosource No Carb Liquid Pkt) 30 ml PO TID [facility] Last Admin: 01/22/20 14:00 Dose: 30 ml Documented by: Atorvastatin Calcium (Lipitor -) 80 mg PO HS [facility] Last Admin: 01/21/20 22:16 Dose: 80 mg Documented by: Chlorhexidine Gluconate (Hibiclens For Decolonization -) 1 applic TP HS [facility] Last Admin: 01/21/20 22:16 Dose: 1 applic Documented by: Collagenase (Santyl -) 1 applic TP DAILY [facility]; Protocol Last Admin: 01/22/20 10:59 Dose: 1 applic Documented by: Propofol (Diprivan -) 1,000,000 mcg in 100 mls @ 3.876 mls/hr IVPB TITR [facility]; Protocol Last Admin: 01/22/20 17:43 Dose: 30 mcg/kg/min, 23.256 mls/hr Documented by: Levofloxacin (Levaquin 750 Mg Premixed Ivpb -) 750 mg in 150 mls @ 100 mls/hr IVPB DAILY [facility]; Protocol Insulin Aspart (Novolog Vial Sliding Scale -) 1 vial SQ [facility]; Protocol Last Admin: 01/22/20 17:42 Dose: 6 units Documented by: Insulin Detemir (Levemir Vial) 5 units SQ [facility] Last Admin: 01/21/20 22:16 Dose: 5 units Documented by: Metoprolol Tartrate (Lopressor Injection -) 5 mg IVPUSH Q4H PRN PRN Reason: TACHYCARDIA Last Admin: 01/22/20 02:31 Dose: 5 mg Documented by: Pantoprazole Sodium (Protonix Iv) 40 mg IVPUSH DAILY [facility] Last Admin: 01/22/20 10:59 Dose: 40 mg Documented by: Vancomycin HCl (Vancomycin Oral Solution) 250 mg PO Q6HPO [facility] Last Admin: 01/22/20 17:43 Dose: 250 mg Documented by: - Objective Vital Signs: Vital Signs Temperature 98.6 F 01/22/20 08:00 Pulse Rate 134 H 01/22/20 18:00 Respiratory Rate 24 H 01/22/20 18:00 Blood Pressure 121/77 01/22/20 18:00 O2 Sat by Pulse Oximetry (%) 97 01/22/20 18:00 Constitutional: Yes: Calm Eyes: Yes: Conjunctiva Clear HENT: Yes: Atraumatic Cardiovascular: Yes: S1, S2 Respiratory: Yes: Mechanically Ventilated Gastrointestinal: Yes: Soft, Abdomen, Obese Genitourinary: Yes: Johnson Present Edema: Yes Edema: LLE: Trace, RLE: Trace Neurological: Yes: Lethargy Labs: CBC, BMP 01/22/20 06:00 01/22/20 06:00 INR, PTT INR 1.17 (0.83-1.09) H 01/15/20 06:30 Fibrinogen > 500.0 mg/dL (238-498) H 01/15/20 06:30 - ....Imaging Chest X-ray: Report Reviewed Problem List - Problems (1) NOVA (acute kidney injury) Code(s): N17.9 - ACUTE KIDNEY FAILURE, UNSPECIFIED (2) DM2 (diabetes mellitus, type 2) Code(s): E11.9 - TYPE 2 DIABETES MELLITUS WITHOUT COMPLICATIONS Qualifiers: Diabetes mellitus fdc insulin use: with fdc use Diabetes mellitus complication detail: with other circulatory complications (3) Hyperkalemia Code(s): E87.5 - HYPERKALEMIA (4) Metabolic acidosis Code(s): E87.2 - ACIDOSIS Assessment/Plan Current Medications Generic Name Dose Route Start Last Admin Trade Name Freq PRN Reason Stop Dose Admin Acetaminophen 650 mg 01/21/20 15:23 01/21/20 23:11 Tylenol - PO 650 mg Q6H PRN Administration FEVER Amino Acids 30 ml 01/13/20 22:00 01/22/20 14:00 Prosource No Carb Liquid Pkt PO 30 ml TID [facility] Administration Atorvastatin Calcium 80 mg 01/12/20 22:00 01/21/20 22:16 Lipitor - PO 80 mg HS [facility] Administration Chlorhexidine Gluconate 1 applic 01/10/20 22:00 01/21/20 22:16 Hibiclens For Decolonization - TP 1 applic HS [facility] Administration Collagenase 1 applic 01/11/20 14:15 01/22/20 10:59 Santyl - TP 1 applic DAILY [facility] Administration Protocol Propofol 1,000,000 mcg in 100 mls @ 3.876 mls/hr 01/20/20 14:01 01/22/20 17:43 Diprivan - IVPB 30 mcg/kg/min TITR [facility] 23.256 mls/hr Administration Protocol 5 MCG/KG/MIN Levofloxacin 750 mg in 150 mls @ 100 mls/hr 01/23/20 10:00 Levaquin 750 Mg Premixed Ivpb - IVPB DAILY [facility] Protocol Insulin Aspart 1 vial 01/10/20 22:00 01/22/20 17:42 Novolog Vial Sliding Scale - SQ 6 units ACHS [facility] Administration Protocol Insulin Detemir 5 units 01/21/20 22:00 01/21/20 22:16 Levemir Vial SQ 5 units HS [facility] Administration Metoprolol Tartrate 5 mg 01/20/20 03:09 01/22/20 02:31 Lopressor Injection - IVPUSH 5 mg Q4H PRN Administration TACHYCARDIA Pantoprazole Sodium 40 mg 01/13/20 10:00 01/22/20 10:59 Protonix Iv IVPUSH 40 mg DAILY [facility] Administration Vancomycin HCl 250 mg 01/18/20 18:00 01/22/20 17:43 Vancomycin Oral Solution PO 250 mg Q6HPO [facility] Administration Impression 1. NOVA 2. hyperkalemia 3. obesity 4. DM 5. a-fib 6. HTN 7. chronic lower extremity ulcers 8. gastritis 9. sepsis 10. hyperglycemia 11. metabolic acidosis 12. peripheral vascular disease 13. acute resp failure 14. shock 15. cva 16. thrombocytopenia Plan - renal function stable - replace potassium - lasix prn for volume - monitor renal function - cont wound care - abx per ID - follow cultures - avoid nsaids - avoid nephrotoxins
[2020-01-22] MEDS: ATORVASTATIN CA 80 MG TABLET (FP) PO SCH (21:46)
[2020-01-22] MEDS: INSULIN (LEVEMIR) 100 UNITS/ML UNITS SQ SCH (21:46)
[2020-01-22] MEDS: CHLORHEXIDINE GLUCONATE 4% CLEANSER FOR DECOLONIZATION TP SCH (21:47)
[2020-01-22] MEDS: ACETAMINOPHEN 325 MG TABLET (FP) PO PRN (23:54)
[2020-01-23] MEDS: METOPROLOL TARTRATE 5 MG/5 ML VIAL IVPUSH PRN ×3 (00:10→16:06)
[2020-01-23] MEDS: VANCOMYCIN 250 MG/5 ML ORAL SOLUTION PO SCH ×3 (05:52→17:59)
[2020-01-23] MEDS: AMINO ACIDS/PROTEIN HYDROLYS 30 ML LIQUID.PKT PO SCH ×3 (05:52→22:15)
[2020-01-23] MEDS: ACETAMINOPHEN 325 MG TABLET (FP) PO PRN ×3 (05:56→22:15)
[2020-01-23 06:09] LABS: ARTERIAL BLD GAS O2 SATURATION 96.1 mmHg (95-98); ARTERIAL BLOOD GAS BASE EXCESS -4.1 mmol/L (-2-2); ARTERIAL BLOOD GAS PO2 78.1 mmHg (80-100); ARTERIAL BLOOD GAS pH 7.439 (7.350-7.450)
[2020-01-23 06:51] LABS: ALLENS TEST POSITIVE
[2020-01-23 06:52] LABS: VENT MODE A/C; VENT RATE 22
[2020-01-23 08:08] LABS: BLOOD UREA NITROGEN 67.5 mg/dL (7-18); CALCIUM 9.6 mg/dL (8.5-10.1); CREATININE 1.6 mg/dL (0.55-1.3); HEMATOCRIT 27.7 % (32.4-45.2); HEMOGLOBIN 8.7 GM/dL (10.7-15.3); MAGNESIUM 1.5 mg/dL (1.8-2.4); MCH 27.8 pg (25.7-33.7); MCHC 31.4 g/dl (32.0-36.0); MEAN CELL VOLUME 88.3 fl (80-96); MEAN PLT VOLUME 10.8 fl (7.5-11.1); PHOSPHOROUS 3.6 mg/dL (2.5-4.9); PLATELET COUNT 365 K/MM3 (134-434); POTASSIUM 3.6 mmol/L (3.5-5.1); RBC 3.14 M/mm3 (3.60-5.2); WHITE BLOOD COUNT 28.9 K/mm3 (4.0-10.0)
[2020-01-23] MEDS ORDERED: MAGNESIUM 1GM/D5W 100ML - 100 ML IVPB IVPB ONE (09:00)
[2020-01-23] MEDS: FENTANYL IVPB 500 MCG/100 ML BAG IVPB SCH (09:00)
[2020-01-23] MEDS: PROPOFOL 1,000,000 MCG/100 ML VIAL IVPB SCH (09:00)
[2020-01-23] MEDS ORDERED: FENTANYL IVPB 500 MCG/100 ML BAG IVPB ONE (09:12)
--- NOTE | 2020-01-23 09:39 | PN ---
Progress Note (short form) - Note Progress Note: RENAL pt remains intubated appears comfortable Last Vital Signs Temp Pulse Resp BP Pulse Ox 99.3 F 123 H 26 H 116/69 99 01/22/20 20:00 01/23/20 08:00 01/23/20 08:00 01/23/20 08:00 01/23/20 08:00 lungs bilat air entry cvs s1s2 rr abd soft ext dressed, no edema has a rectal tube cuevas in place CBC, BMP 01/23/20 05:45 01/23/20 05:45 Current Medications Generic Name Dose Route Start Last Admin Trade Name Freq PRN Reason Stop Dose Admin Acetaminophen 650 mg 01/21/20 15:23 01/23/20 05:56 Tylenol - PO 650 mg Q6H PRN Administration FEVER Amino Acids 30 ml 01/13/20 22:00 01/23/20 05:52 Prosource No Carb Liquid Pkt PO 30 ml TID [facility] Administration Atorvastatin Calcium 80 mg 01/12/20 22:00 01/22/20 21:46 Lipitor - PO 80 mg HS [facility] Administration Chlorhexidine Gluconate 1 applic 01/10/20 22:00 01/22/20 21:47 Hibiclens For Decolonization - TP 1 applic HS [facility] Administration Collagenase 1 applic 01/11/20 14:15 01/22/20 10:59 Santyl - TP 1 applic DAILY [facility] Administration Protocol Propofol 1,000,000 mcg in 100 mls @ 3.876 mls/hr 01/20/20 14:01 01/22/20 19:50 Diprivan - IVPB 35 mcg/kg/min TITR [facility] 27.132 mls/hr Titration Protocol 5 MCG/KG/MIN Levofloxacin 750 mg in 150 mls @ 100 mls/hr 01/23/20 10:00 Levaquin 750 Mg Premixed Ivpb - IVPB DAILY [facility] Protocol Insulin Aspart 1 vial 01/10/20 22:00 01/22/20 22:00 Novolog Vial Sliding Scale - SQ 2 units ACHS [facility] Administration Protocol Insulin Detemir 5 units 01/21/20 22:00 01/22/20 21:46 Levemir Vial SQ 5 units HS [facility] Administration Metoprolol Tartrate 5 mg 01/20/20 03:09 01/23/20 04:17 Lopressor Injection - IVPUSH 5 mg Q4H PRN Administration TACHYCARDIA Pantoprazole Sodium 40 mg 01/13/20 10:00 01/22/20 10:59 Protonix Iv IVPUSH 40 mg DAILY [facility] Administration Vancomycin HCl 250 mg 01/18/20 18:00 01/23/20 05:52 Vancomycin Oral Solution PO 250 mg Q6HPO [facility] Administration Impression 1. NOVA improved, though not back to baseline 2. hyperkalemia resolved, pt having diarrhea 3. obesity 4. DM 5. a-fib 6. HTN 7. chronic lower extremity ulcers 8. gastritis 9. sepsis- stenotrophomonas maltophilia 10. hyperglycemia 11. metabolic acidosis resolved 12. peripheral vascular disease 13. acute resp failure 14. shock 15. cva 16. thrombocytopenia Plan - renal function stable - replace potassium - lasix prn for volume - monitor renal function - cont wound care - abx per ID - recent cultures are negative - avoid nephrotoxins -avoid hypotension MV
[2020-01-23] MEDS: COLLAGENASE CLOSTRIDIUM HIST. 30 GRAMS TUBE TP SCH (10:32)
[2020-01-23] MEDS: PANTOPRAZOLE SODIUM 40 MG VIAL IVPUSH SCH (10:32)
--- NOTE | 2020-01-23 10:59 | PN ---
Teaching Attending Note Name of Resident: Yves Morgan ATTENDING PHYSICIAN STATEMENT I saw and evaluated the patient. I reviewed the resident's note and discussed the case with the resident. I agree with the resident's findings and plan as documented. SUBJECTIVE: Pt seen and examined in the ICU. Remains intubated, sedated, tachypneic. Remains off pressors. OBJECTIVE: Vital Signs Period Temp Pulse Resp BP Sys/Callahan Pulse Ox Last 24 Hr 99.3 F-100.2 F 103-135 23-31 107-138/66-110 81-99 Intake & Output 01/20/20 01/21/20 01/22/20 01/23/20 23:59 23:59 23:59 23:59 Intake Total 1626 388.5 2213 441.6 Output Total 1900 3650 4700 1400 Balance -274 -3261.5 -2487 -958.4 Weight 129.2 kg 128 kg 126.5 kg Gen: intubated, sedated Heart: RRR Lung: scattered rhonchi Abd: soft, nontender Ext: wrapped CBC, BMP 01/23/20 05:45 01/23/20 05:45 Active Medications Acetaminophen (Tylenol -) 650 mg PO Q6H PRN PRN Reason: FEVER Last Admin: 01/23/20 05:56 Dose: 650 mg Documented by: Amino Acids (Prosource No Carb Liquid Pkt) 30 ml PO TID [facility] Last Admin: 01/23/20 05:52 Dose: 30 ml Documented by: Atorvastatin Calcium (Lipitor -) 80 mg PO [facility] Last Admin: 01/22/20 21:46 Dose: 80 mg Documented by: Chlorhexidine Gluconate (Hibiclens For Decolonization -) 1 applic TP HS [facility] Last Admin: 01/22/20 21:47 Dose: 1 applic Documented by: Collagenase (Santyl -) 1 applic TP DAILY [facility]; Protocol Last Admin: 01/23/20 10:32 Dose: 1 applic Documented by: Propofol (Diprivan -) 1,000,000 mcg in 100 mls @ 3.876 mls/hr IVPB TITR [facility]; Protocol Last Titration: 01/22/20 19:50 Dose: 35 mcg/kg/min, 27.132 mls/hr Documented by: Levofloxacin (Levaquin 750 Mg Premixed Ivpb -) 750 mg in 150 mls @ 100 mls/hr IVPB DAILY [facility]; Protocol Last Admin: 01/23/20 10:31 Dose: 100 mls/hr Documented by: Insulin Aspart (Novolog Vial Sliding Scale -) 1 vial SQ ACHS [facility]; Protocol Last Admin: 01/22/20 22:00 Dose: 2 units Documented by: Insulin Detemir (Levemir Vial) 5 units SQ HS [facility] Last Admin: 01/22/20 21:46 Dose: 5 units Documented by: Metoprolol Tartrate (Lopressor Injection -) 5 mg IVPUSH Q4H PRN PRN Reason: TACHYCARDIA Last Admin: 01/23/20 04:17 Dose: 5 mg Documented by: Pantoprazole Sodium (Protonix Iv) 40 mg IVPUSH DAILY [facility] Last Admin: 01/23/20 10:32 Dose: 40 mg Documented by: Vancomycin HCl (Vancomycin Oral Solution) 250 mg PO Q6HPO [facility] Last Admin: 01/23/20 05:52 Dose: 250 mg Documented by: ASSESSMENT AND PLAN: Acute Hypoxic Respiratory Failure Cellulitis Pneumonia Septic Shock Acute on Chronic Renal Failure Atrial Fibrillation HTN DM Morbid Obesity BARRY/OHS C Diff Colitis - continue antibiotics - repeat sputum, urine cultures - off pressors, maintain MAP>65 - hold lasix today - monitor urine output, creatinine - titrate FiO2, PEEP to keep SpO2 >90% - wound care - daily sedation vacations to assess mental status - enteral feeds - DVT/GI prophylaxis - continue ICU monitoring critical care time spent in reviewing chart, evaluating patient and formulating plan 35 min
[2020-01-23] MEDS ORDERED: FENTANYL NS IVPB 500 MCG/100 ML BAG IVPB ONE ×2 (12:17→17:11)
[2020-01-23] MEDS: INSULIN SLIDING SCALE (NOVOLOG) 1 VIAL SQ SCH ×5 (12:26→22:17)
[2020-01-23] MEDS: APIXABAN 5 MG TABLET PO SCH ×2 (12:26→22:16)
--- NOTE | 2020-01-23 12:39 | PN ---
Physical Exam: SUBJECTIVE: Patient seen and examined OBJECTIVE: Vital Signs Period Temp Pulse Resp BP Sys/Callahan Pulse Ox Last 24 Hr 99.3 F-100.2 F 103-135 23-31 107-138/66-110 81-99 GENERAL: The patient is awake, alert, and fully oriented, in no acute distress. HEAD: Normal with no signs of trauma. EYES: PERRL, extraocular movements intact, sclera anicteric, conjunctiva clear. No ptosis. ENT: Ears normal, nares patent, oropharynx clear without exudates, moist mucous membranes. NECK: Trachea midline, full range of motion, supple. LUNGS: Breath sounds equal, clear to auscultation bilaterally, no wheezes, no crackles, no accessory muscle use. HEART: Regular rate and rhythm, S1, S2 without murmur, rub or gallop. ABDOMEN: Soft, nontender, nondistended, normoactive bowel sounds, no guarding, no rebound, no hepatosplenomegaly, no masses. EXTREMITIES: 2+ pulses, warm, well-perfused, no edema. NEUROLOGICAL: Cranial nerves II through XII grossly intact. Normal speech, gait not observed. PSYCH: Normal mood, normal affect. SKIN: Warm, dry, normal turgor, no rashes or lesions noted Laboratory Results - last 24 hr 01/22/20 01/22/20 01/23/20 16:56 21:59 05:40 WBC RBC Hgb Hct MCV MCH MCHC RDW Plt Count MPV Anticoagulation Therapy No Result Required. Puncture Site Left radial Patient Temperature No Result Required. ABG pH 7.439 ABG pCO2 28.60 L ABG pO2 78.1 L ABG HCO3 18.9 L ABG O2 Sat (Measured) 96.1 ABG O2 Content No Result Required. ABG Base Excess -4.1 L Kwesi Test Positive Patient On Oxygen Yes O2 Delivery Device Vent Oxygen Flow Rate 60% Vent Mode A/c Vent Rate 22 Mechanical Rate Yes PEEP 8.0 Pressure Support Vent 500 Sodium Potassium Chloride Carbon Dioxide Anion Gap BUN Creatinine Est GFR (CKD-EPI)AfAm Est GFR (CKD-EPI)NonAf POC Glucometer 252 164 Random Glucose Calcium Phosphorus Magnesium 01/23/20 01/23/20 01/23/20 05:45 05:45 05:47 WBC 28.9 H RBC 3.14 L Hgb 8.7 L Hct 27.7 L MCV 88.3 MCH 27.8 MCHC 31.4 L RDW 15.0 Plt Count 365 MPV 10.8 Anticoagulation Therapy Puncture Site Patient Temperature ABG pH ABG pCO2 ABG pO2 ABG HCO3 ABG O2 Sat (Measured) ABG O2 Content ABG Base Excess Kwesi Test Patient On Oxygen O2 Delivery Device Oxygen Flow Rate Vent Mode Vent Rate Mechanical Rate PEEP Pressure Support Vent Sodium 145 Potassium 3.6 Chloride 111 H Carbon Dioxide 25 Anion Gap 9 BUN 67.5 H Creatinine 1.6 H Est GFR (CKD-EPI)AfAm 41.32 Est GFR (CKD-EPI)NonAf 35.65 POC Glucometer 249 Random Glucose 248 H Calcium 9.6 Phosphorus 3.6 Magnesium 1.5 L 01/23/20 12:10 WBC RBC Hgb Hct MCV MCH MCHC RDW Plt Count MPV Anticoagulation Therapy Puncture Site Patient Temperature ABG pH ABG pCO2 ABG pO2 ABG HCO3 ABG O2 Sat (Measured) ABG O2 Content ABG Base Excess Kwesi Test Patient On Oxygen O2 Delivery Device Oxygen Flow Rate Vent Mode Vent Rate Mechanical Rate PEEP Pressure Support Vent Sodium Potassium Chloride Carbon Dioxide Anion Gap BUN Creatinine Est GFR (CKD-EPI)AfAm Est GFR (CKD-EPI)NonAf POC Glucometer 257 Random Glucose Calcium Phosphorus Magnesium Active Medications Generic Name Dose Route Start Last Admin Trade Name Freq PRN Reason Stop Dose Admin Acetaminophen 650 mg 01/21/20 15:23 01/23/20 05:56 Tylenol - PO 650 mg Q6H PRN Administration FEVER Amino Acids 30 ml 01/13/20 22:00 01/23/20 05:52 Prosource No Carb Liquid Pkt PO 30 ml TID [facility] Administration Apixaban 5 mg 01/23/20 11:30 01/23/20 12:26 Eliquis - PO 5 mg BID [facility] Administration Atorvastatin Calcium 80 mg 01/12/20 22:00 01/22/20 21:46 Lipitor - PO 80 mg HS [facility] Administration Chlorhexidine Gluconate 1 applic 01/10/20 22:00 01/22/20 21:47 Hibiclens For Decolonization - TP 1 applic HS [facility] Administration Collagenase 1 applic 01/11/20 14:15 01/23/20 10:32 Santyl - TP 1 applic DAILY [facility] Administration Protocol Propofol 1,000,000 mcg in 100 mls @ 3.876 mls/hr 01/20/20 14:01 01/22/20 19:50 Diprivan - IVPB 35 mcg/kg/min TITR [facility] 27.132 mls/hr Titration Protocol 5 MCG/KG/MIN Levofloxacin 750 mg in 150 mls @ 100 mls/hr 01/23/20 10:00 01/23/20 10:31 Levaquin 750 Mg Premixed Ivpb - IVPB 100 mls/hr DAILY [facility] Administration Protocol Insulin Aspart 1 vial 01/10/20 22:00 01/22/20 22:00 Novolog Vial Sliding Scale - SQ 2 units ACHS [facility] Administration Protocol Insulin Detemir 5 units 01/21/20 22:00 01/22/20 21:46 Levemir Vial SQ 5 units HS [facility] Administration Metoprolol Tartrate 5 mg 01/20/20 03:09 01/23/20 04:17 Lopressor Injection - IVPUSH 5 mg Q4H PRN Administration TACHYCARDIA Pantoprazole Sodium 40 mg 01/13/20 10:00 01/23/20 10:32 Protonix Iv IVPUSH 40 mg DAILY [facility] Administration Vancomycin HCl 250 mg 01/18/20 18:00 01/23/20 12:26 Vancomycin Oral Solution PO 250 mg Q6HPO [facility] Administration ASSESSMENT/PLAN: 54 yo F with a hx of CKD, afib, DM, and chronic LE ulcers presented with weakness to the emergency department resulting in emergency HD with hypoxic respiratory failure with suspected septic shock 2/2 cellulitis and PNA Assessment: Acute hypoxic respiratory failure PNA Septic Shock Acute on chronic renal failure Atrial fibrillation HTN DM Plan: Neuro: Patient sedated on fentanyl and propfol for RASS score goal of -3 Continue sedation for comfort on ventilator to improve sychrony Head CT noted to be negative for expansion - eliquis resumed Cardiac: off pressors currently but continues to have borderline MAP ~65. Will restart levophed if MAP <65 to maintain pressures Respiratory: Currently ventilated: 500 mL TV/8 Peep/60% FiO2/22 breaths per minute Continue to keep SpO2 >90% Will hold lasix for today ID: Upward trending leukocytosis; now WBC 28.9 increased from 20.7 yesterday Ordered sputum culture and urine culture and notified nursing staff on oral vanco for cdiff Will adjust abx according to cultures Currently on levofloxaxin (01/21-) Currently on oral vanco (01/17-) Renal: Creatinine 1.6 BUN 67.5 Continue to monitor I/O. 1400 mL thus far FEN: Magnesium noted to be low - repleted Monitor electrolytes daily On feeds currently protonix for prophylaxis Integumentary Wound care daily Lines: Intubated: 01-10 Cuevas: 01/09 (Will have cuevas changed today with urine culture) RIJ: 01/18/2020 placement Visit type - Emergency Visit Emergency Visit: Yes ED Registration Date: 01/10/20 Care time: The patient presented to the Emergency Department on the above date and was hospitalized for further evaluation of their emergent condition. - New Patient This patient is new to me today: No - Critical Care Critical Care patient: Yes Total Critical Care Time (in minutes): 36 Critical Care Statement: The care of this patient involved high complexity decision making to prevent further life threatening deterioration of the patient's condition and/or to evaluate & treat vital organ system(s) failure or risk of failure. ATTENDING PHYSICIAN STATEMENT I saw and evaluated the patient. I reviewed the resident's note and discussed the case with the resident. I agree with the resident's findings and plan as documented. SUBJECTIVE: OBJECTIVE: ASSESSMENT AND PLAN:
[2020-01-23 13:40] VITALS: BMI 46.2
--- NOTE | 2020-01-23 13:49 | PN ---
Progress Note, Physician Chief Complaint: OFF PRESSORS STILL SEDATED AND INTUBATED EVENTS AND NOTES REVIEWED - Current Medication List Current Medications: Active Medications Acetaminophen (Tylenol -) 650 mg PO Q6H PRN PRN Reason: FEVER Last Admin: 01/23/20 05:56 Dose: 650 mg Documented by: Amino Acids (Prosource No Carb Liquid Pkt) 30 ml PO TID [facility] Last Admin: 01/23/20 05:52 Dose: 30 ml Documented by: Apixaban (Eliquis -) 5 mg PO BID [facility] Last Admin: 01/23/20 12:26 Dose: 5 mg Documented by: Atorvastatin Calcium (Lipitor -) 80 mg PO HS [facility] Last Admin: 01/22/20 21:46 Dose: 80 mg Documented by: Chlorhexidine Gluconate (Hibiclens For Decolonization -) 1 applic TP [facility] Last Admin: 01/22/20 21:47 Dose: 1 applic Documented by: Collagenase (Santyl -) 1 applic TP DAILY [facility]; Protocol Last Admin: 01/23/20 10:32 Dose: 1 applic Documented by: Propofol (Diprivan -) 1,000,000 mcg in 100 mls @ 3.876 mls/hr IVPB TITR [facility]; Protocol Last Titration: 01/22/20 19:50 Dose: 35 mcg/kg/min, 27.132 mls/hr Documented by: Levofloxacin (Levaquin 750 Mg Premixed Ivpb -) 750 mg in 150 mls @ 100 mls/hr IVPB DAILY [facility]; Protocol Last Admin: 01/23/20 10:31 Dose: 100 mls/hr Documented by: Insulin Aspart (Novolog Vial Sliding Scale -) 1 vial SQ [facility]; Protocol Last Admin: 01/23/20 12:27 Dose: 6 units Documented by: Insulin Detemir (Levemir Vial) 5 units SQ [facility] Last Admin: 01/22/20 21:46 Dose: 5 units Documented by: Metoprolol Tartrate (Lopressor Injection -) 5 mg IVPUSH Q4H PRN PRN Reason: TACHYCARDIA Last Admin: 01/23/20 04:17 Dose: 5 mg Documented by: Pantoprazole Sodium (Protonix Iv) 40 mg IVPUSH DAILY [facility] Last Admin: 01/23/20 10:32 Dose: 40 mg Documented by: Vancomycin HCl (Vancomycin Oral Solution) 250 mg PO Q6HPO [facility] Last Admin: 01/23/20 12:26 Dose: 250 mg Documented by: - Objective Vital Signs: Vital Signs Temperature 99.8 F H 01/23/20 12:00 Pulse Rate 127 H 01/23/20 12:00 Respiratory Rate 30 H 01/23/20 12:00 Blood Pressure 113/70 01/23/20 12:00 O2 Sat by Pulse Oximetry (%) 98 01/23/20 12:00 Constitutional: Yes: Other Cardiovascular: Yes: Pulse Irregular Respiratory: Yes: Diminished, Mechanically Ventilated Gastrointestinal: Yes: Abdomen, Obese Genitourinary: Yes: Dc Present Musculoskeletal: Yes: Muscle Weakness Edema: Yes Wound/Incision: Yes: Dressing Dry and Intact, Unapproximated Neurological: Yes: Pre-Existing Deficit, Other Labs: CBC, BMP 01/23/20 05:45 01/23/20 05:45 INR, PTT INR 1.17 (0.83-1.09) H 01/15/20 06:30 Fibrinogen > 500.0 mg/dL (238-498) H 01/15/20 06:30 Problem List - Problems (1) ARF (acute renal failure) Code(s): N17.9 - ACUTE KIDNEY FAILURE, UNSPECIFIED Qualifiers: Acute renal failure type: unspecified Qualified Code(s): N17.9 - Acute kidney failure, unspecified (2) CVA (cerebral vascular accident) Code(s): I63.9 - CEREBRAL INFARCTION, UNSPECIFIED (3) Diabetic calf ulcer Code(s): E11.622 - TYPE 2 DIABETES MELLITUS WITH OTHER SKIN ULCER; L97.209 - NON-PRESSURE CHRONIC ULCER OF UNSP CALF WITH UNSP SEVERITY (4) Hyperkalemia Code(s): E87.5 - HYPERKALEMIA (5) Respiratory failure Code(s): J96.90 - RESPIRATORY FAILURE, UNSP, UNSP W HYPOXIA OR HYPERCAPNIA (6) Septic shock Code(s): A41.9 - SEPSIS, UNSPECIFIED ORGANISM; R65.21 - SEVERE SEPSIS WITH SEPTIC SHOCK (7) NOVA (acute kidney injury) Code(s): N17.9 - ACUTE KIDNEY FAILURE, UNSPECIFIED (8) Abdominal lymphadenopathy Code(s): R59.0 - LOCALIZED ENLARGED LYMPH NODES (9) Afib Code(s): I48.91 - UNSPECIFIED ATRIAL FIBRILLATION Qualifiers: Atrial fibrillation type: paroxysmal Qualified Code(s): I48.0 - Paroxysmal atrial fibrillation (10) Bilateral leg ulcer Code(s): L97.919 - NON-PRS CHRONIC ULC UNSP PRT OF R LOW LEG W UNSP SEVERITY; L9 7.929 - NON-PRS CHRONIC ULC UNSP PRT OF L LOW LEG W UNSP SEVERITY Qualifiers: Non-pressure ulcer stage: limited to breakdown of skin Qualified Code(s): L97.911 - Non-pressure chronic ulcer of unspecified part of right lower leg limited to breakdown of skin; L97.921 - Non-pressure chronic ulcer of unspecified part of left lower leg limited to breakdown of skin (11) Chronic cellulitis Code(s): L03.90 - CELLULITIS, UNSPECIFIED (12) Severe sepsis Code(s): A41.9 - SEPSIS, UNSPECIFIED ORGANISM; R65.20 - SEVERE SEPSIS WITHOUT SEPTIC SHOCK Assessment/Plan IV ABX PER ID OFF NOREPINEPHRINE CHECK WITH RENAL ON HD STATUS RESPIRATORY SUPPORT WEAN OFF VENT PER PULMONARY NOW OFF SEDATION EXTREMELY NON-COMPLIANT PATIENT NEEDS EXCHANGE MECHANIC AND PSYCH FOR F/U AND SUPPORT GROUP DM CONTROL WOUND CARE BACTROBAN DAILY CLEAN WOUNDS APPLY DRESSINGS RECTAL TUBE INSERTED DC + OUTPUT DVT PROPHYLAXIS
[2020-01-23] MEDS ORDERED: SODIUM CHLORIDE 1,000 ML IV STA (17:36)
[2020-01-23] MEDS: NOREPINEPHRINE BITARTRATE 8,000 MCG/500 ML BAG IVPB SCH (21:30)
[2020-01-23] MEDS ORDERED: MIDAZOLAM HCL 2 MG/2 ML SINGLE DOSE VIAL IVPUSH ONE (21:39)
[2020-01-23] MEDS: MIDAZOLAM IN 0.9 % SOD.CHLORID 100 MG/100 ML PLAST..BAG IVPB SCH (22:02)
[2020-01-23] MEDS: ATORVASTATIN CA 80 MG TABLET (FP) PO SCH (22:16)
[2020-01-23] MEDS: CHLORHEXIDINE GLUCONATE 4% CLEANSER FOR DECOLONIZATION TP SCH (22:17)
[2020-01-23] MEDS: INSULIN (LEVEMIR) 100 UNITS/ML UNITS SQ SCH (22:17)
--- NOTE | 2020-01-23 23:01 | PN ---
Progress Note, Physician History of Present Illness: SEDATED IN BED LOW GRADE TEMPS WBC 28K - Current Medication List Current Medications: Active Medications Acetaminophen (Tylenol -) 650 mg PO Q6H PRN PRN Reason: FEVER Last Admin: 01/23/20 22:15 Dose: 650 mg Documented by: Amino Acids (Prosource No Carb Liquid Pkt) 30 ml PO TID [facility] Last Admin: 01/23/20 22:15 Dose: 30 ml Documented by: Apixaban (Eliquis -) 5 mg PO BID [facility] Last Admin: 01/23/20 22:16 Dose: 5 mg Documented by: Atorvastatin Calcium (Lipitor -) 80 mg PO HS [facility] Last Admin: 01/23/20 22:16 Dose: 80 mg Documented by: Chlorhexidine Gluconate (Hibiclens For Decolonization -) 1 applic TP HS [facility] Last Admin: 01/23/20 22:17 Dose: 1 applic Documented by: Collagenase (Santyl -) 1 applic TP DAILY [facility]; Protocol Last Admin: 01/23/20 10:32 Dose: 1 applic Documented by: Propofol (Diprivan -) 1,000,000 mcg in 100 mls @ 3.876 mls/hr IVPB TITR [facility]; Protocol Last Titration: 01/23/20 19:26 Dose: 40 mcg/kg/min, 31.008 mls/hr Documented by: Levofloxacin (Levaquin 750 Mg Premixed Ivpb -) 750 mg in 150 mls @ 100 mls/hr IVPB DAILY [facility]; Protocol Last Admin: 01/23/20 10:31 Dose: 100 mls/hr Documented by: Fentanyl (Sublimaze Ivpb) 500 mcg in 100 mls @ 25.3 mls/hr IVPB TITR [facility]; Protocol Stop: 01/24/20 18:59 Last Admin: 01/23/20 09:00 Dose: 100 mcg/kg/hr, 2,530 mls/hr Documented by: Norepinephrine Bitartrate (Levophed Bag) 8,000 mcg in 500 mls @ 18.75 mls/hr IVPB TITR [facility]; Protocol Last Admin: 01/23/20 21:30 Dose: 5 mcg/min, 18.75 mls/hr Documented by: Midazolam HCl (Midazolam 100mg/100ml-0.9%Nacl) 100 mg in 100 mls @ 3 mls/hr IVPB TITR [facility]; Protocol Stop: 01/24/20 21:44 Last Admin: 01/23/20 22:02 Dose: 3 mg/hr, 3 mls/hr Documented by: Insulin Aspart (Novolog Vial Sliding Scale -) 1 vial SQ ACHS [facility]; Protocol Last Admin: 01/23/20 22:17 Dose: 6 units Documented by: Insulin Detemir (Levemir Vial) 5 units SQ HS [facility] Last Admin: 01/23/20 22:17 Dose: 5 units Documented by: Metoprolol Tartrate (Lopressor Injection -) 5 mg IVPUSH Q4H PRN PRN Reason: TACHYCARDIA Last Admin: 01/23/20 16:06 Dose: 5 mg Documented by: Pantoprazole Sodium (Protonix Iv) 40 mg IVPUSH DAILY [facility] Last Admin: 01/23/20 10:32 Dose: 40 mg Documented by: Vancomycin HCl (Vancomycin Oral Solution) 250 mg PO Q6HPO [facility] Last Admin: 01/23/20 17:59 Dose: 250 mg Documented by: - Objective Vital Signs: Vital Signs Temperature 99.9 F H 01/23/20 16:00 Pulse Rate 129 H 01/23/20 18:54 Respiratory Rate 28 H 01/23/20 20:47 Blood Pressure 78/52 L 01/23/20 18:54 O2 Sat by Pulse Oximetry (%) 96 01/23/20 20:47 Constitutional: Yes: No Distress Cardiovascular: Yes: Regular Rate and Rhythm, S1, S2 Respiratory: Yes: Mechanically Ventilated Gastrointestinal: Yes: Soft, Abdomen, Obese Labs: CBC, BMP 01/23/20 05:45 01/23/20 05:45 INR, PTT INR 1.17 (0.83-1.09) H 01/15/20 06:30 Fibrinogen > 500.0 mg/dL (238-498) H 01/15/20 06:30 Assessment/Plan RESP FAILURE FEVER C DIFFICILE AZOTEMIA PCN ALLERGY CONTINUE LEVAQUIN/VANCOMCIN
[2020-01-23] MEDS ORDERED: PROPOFOL 200 MG/20 ML VIAL IVPUSH PRN (23:38)
[2020-01-23] MEDS ORDERED: VECURONIUM BROMIDE 100 MG/100 ML BAG IVPB SCH (23:45)
[2020-01-24 00:16] LABS: ARTERIAL BLD GAS O2 SATURATION 90.2 mmHg (95-98); ARTERIAL BLOOD GAS BASE EXCESS -6.6 mmol/L (-2-2); ARTERIAL BLOOD GAS PO2 59.5 mmHg (80-100)
[2020-01-24 00:19] LABS: ALLENS TEST POSITIVE
[2020-01-24 00:20] LABS: PT'S TEMP 96.9; VENT MODE A/C; VENT RATE 22
[2020-01-24] MEDS: AMINO ACIDS/PROTEIN HYDROLYS 30 ML LIQUID.PKT PO SCH ×3 (06:26→21:58)
[2020-01-24] MEDS: VANCOMYCIN 250 MG/5 ML ORAL SOLUTION PO SCH ×5 (06:27→23:53)
[2020-01-24] MEDS: ACETAMINOPHEN 325 MG TABLET (FP) PO PRN (06:27)
[2020-01-24] MEDS: INSULIN SLIDING SCALE (NOVOLOG) 1 VIAL SQ SCH ×4 (06:28→22:13)
[2020-01-24] MEDS ORDERED: PT OWN MED DRAWER 7, Y5N ONE (07:20)
[2020-01-24] MEDS ORDERED: INSULIN (NOVOLOG) ASPART 100 UNITS/ML 10ML VIAL ONE (07:21)
[2020-01-24] MEDS: FENTANYL IVPB 500 MCG/100 ML BAG IVPB SCH ×2 (07:30→13:56)
--- NOTE | 2020-01-24 08:49 | PN ---
Progress Note, Physician Chief Complaint: OFF PRESSORS STILL SEDATED AND INTUBATED EVENTS AND NOTES REVIEWED - Current Medication List Current Medications: Active Medications Acetaminophen (Tylenol -) 650 mg PO Q6H PRN PRN Reason: FEVER Last Admin: 01/24/20 06:27 Dose: 650 mg Documented by: Acetaminophen (Ofirmev Injection -) 1,000 mg IVPB Q6H PRN PRN Reason: FEVER Stop: 01/25/20 08:36 Amino Acids (Prosource No Carb Liquid Pkt) 30 ml PO TID [facility] Last Admin: 01/24/20 06:26 Dose: 30 ml Documented by: Apixaban (Eliquis -) 5 mg PO BID [facility] Last Admin: 01/23/20 22:16 Dose: 5 mg Documented by: Atorvastatin Calcium (Lipitor -) 80 mg PO HS [facility] Last Admin: 01/23/20 22:16 Dose: 80 mg Documented by: Chlorhexidine Gluconate (Hibiclens For Decolonization -) 1 applic TP HS [facility] Last Admin: 01/23/20 22:17 Dose: 1 applic Documented by: Collagenase (Santyl -) 1 applic TP DAILY [facility]; Protocol Last Admin: 01/23/20 10:32 Dose: 1 applic Documented by: Propofol (Diprivan -) 1,000,000 mcg in 100 mls @ 3.876 mls/hr IVPB TITR [facility]; Protocol Last Titration: 01/23/20 19:26 Dose: 40 mcg/kg/min, 31.008 mls/hr Documented by: Levofloxacin (Levaquin 750 Mg Premixed Ivpb -) 750 mg in 150 mls @ 100 mls/hr IVPB DAILY [facility]; Protocol Last Admin: 01/23/20 10:31 Dose: 100 mls/hr Documented by: Fentanyl (Sublimaze Ivpb) 500 mcg in 100 mls @ 25.3 mls/hr IVPB TITR [facility]; Protocol Stop: 01/24/20 18:59 Last Admin: 01/23/20 09:00 Dose: 100 mcg/kg/hr, 2,530 mls/hr Documented by: Norepinephrine Bitartrate (Levophed Bag) 8,000 mcg in 500 mls @ 18.75 mls/hr IVPB TITR [facility]; Protocol Last Titration: 01/23/20 23:30 Dose: 10 mcg/min, 37.5 mls/hr Documented by: Midazolam HCl (Midazolam 100mg/100ml-0.9%Nacl) 100 mg in 100 mls @ 3 mls/hr IVPB TITR [facility]; Protocol Stop: 01/24/20 21:44 Last Infusion: 01/23/20 23:25 Dose: 10 mg/hr, 10 mls/hr Documented by: Vasopressin 40 units/ Sodium (Chloride) 100 mls @ 5 mls/hr IVPB ASDIR [facility]; Protocol Insulin Aspart (Novolog Vial Sliding Scale -) 1 vial SQ ACHS [facility]; Protocol Last Admin: 01/24/20 06:28 Dose: 6 units Documented by: Insulin Detemir (Levemir Vial) 5 units SQ HS [facility] Last Admin: 01/23/20 22:17 Dose: 5 units Documented by: Metoprolol Tartrate (Lopressor Injection -) 5 mg IVPUSH Q4H PRN PRN Reason: TACHYCARDIA Last Admin: 01/23/20 16:06 Dose: 5 mg Documented by: Pantoprazole Sodium (Protonix Iv) 40 mg IVPUSH DAILY [facility] Last Admin: 01/23/20 10:32 Dose: 40 mg Documented by: Vancomycin HCl (Vancomycin Oral Solution) 250 mg PO Q6HPO [facility] Last Admin: 01/24/20 06:27 Dose: 250 mg Documented by: - Objective Vital Signs: Vital Signs Temperature 100.2 F H 01/24/20 06:00 Pulse Rate 108 H 01/24/20 08:00 Respiratory Rate 28 H 01/24/20 08:33 Blood Pressure 95/49 L 01/24/20 08:00 O2 Sat by Pulse Oximetry (%) 96 01/24/20 08:33 Constitutional: Yes: Moderate Distress Cardiovascular: Yes: Pulse Irregular Respiratory: Yes: Mechanically Ventilated Gastrointestinal: Yes: Abdomen, Obese, Distention Genitourinary: Yes: Dc Present Musculoskeletal: Yes: Muscle Weakness Edema: Yes Integumentary: Yes: Pressure Ulcer Wound/Incision: Yes: Dressing Dry and Intact, Excoriated, Unapproximated Labs: CBC, BMP 01/23/20 05:45 01/23/20 05:45 INR, PTT INR 1.17 (0.83-1.09) H 01/15/20 06:30 Fibrinogen > 500.0 mg/dL (238-498) H 01/15/20 06:30 Problem List - Problems (1) ARF (acute renal failure) Code(s): N17.9 - ACUTE KIDNEY FAILURE, UNSPECIFIED Qualifiers: Acute renal failure type: unspecified Qualified Code(s): N17.9 - Acute kidney failure, unspecified (2) CVA (cerebral vascular accident) Code(s): I63.9 - CEREBRAL INFARCTION, UNSPECIFIED (3) Diabetic calf ulcer Code(s): E11.622 - TYPE 2 DIABETES MELLITUS WITH OTHER SKIN ULCER; L97.209 - NON-PRESSURE CHRONIC ULCER OF UNSP CALF WITH UNSP SEVERITY (4) Hyperkalemia Code(s): E87.5 - HYPERKALEMIA (5) Respiratory failure Code(s): J96.90 - RESPIRATORY FAILURE, UNSP, UNSP W HYPOXIA OR HYPERCAPNIA (6) Septic shock Code(s): A41.9 - SEPSIS, UNSPECIFIED ORGANISM; R65.21 - SEVERE SEPSIS WITH SEPTIC SHOCK (7) NOVA (acute kidney injury) Code(s): N17.9 - ACUTE KIDNEY FAILURE, UNSPECIFIED (8) Abdominal lymphadenopathy Code(s): R59.0 - LOCALIZED ENLARGED LYMPH NODES (9) Afib Code(s): I48.91 - UNSPECIFIED ATRIAL FIBRILLATION Qualifiers: Atrial fibrillation type: paroxysmal Qualified Code(s): I48.0 - Paroxysmal atrial fibrillation (10) Bilateral leg ulcer Code(s): L97.919 - NON-PRS CHRONIC ULC UNSP PRT OF R LOW LEG W UNSP SEVERITY; L97.929 - NON-PRS CHRONIC ULC UNSP PRT OF L LOW LEG W UNSP SEVERITY Qualifiers: Non-pressure ulcer stage: limited to breakdown of skin Qualified Code(s): L97.911 - Non-pressure chronic ulcer of unspecified part of right lower leg limited to breakdown of skin; L97.921 - Non-pressure chronic ulcer of unspecified part of left lower leg limited to breakdown of skin (11) Chronic cellulitis Code(s): L03.90 - CELLULITIS, UNSPECIFIED (12) Severe sepsis Code(s): A41.9 - SEPSIS, UNSPECIFIED ORGANISM; R65.20 - SEVERE SEPSIS WITHOUT SEPTIC SHOCK Assessment/Plan IV ABX PER ID OFF NOREPINEPHRINE CHECK WITH RENAL ON HD STATUS RESPIRATORY SUPPORT WEAN OFF VENT PER PULMONARY NOW OFF SEDATION EXTREMELY NON-COMPLIANT PATIENT NEEDS PIPE FITTER SUPERVISOR AND PSYCH FOR F/U AND SUPPORT GROUP DM CONTROL WOUND CARE BACTROBAN DAILY CLEAN WOUNDS APPLY DRESSINGS RECTAL TUBE INSERTED DC + OUTPUT DVT PROPHYLAXIS
[2020-01-24] MEDS: PROPOFOL 1,000,000 MCG/100 ML VIAL IVPB SCH ×3 (09:00→17:04)
[2020-01-24 09:03] LABS: EPI CELLS >36 /uL (0-25.1); HYALINE CASTS 3 /uL (0-3.1); URINE APPEARANCE CLOUDY; URINE BACTERIA 4 /uL (0-1359); URINE BILIRUBIN NEGATIVE (NEGATIVE); URINE COLOR YELLOW; URINE GLUCOSE (UA) NEGATIVE (NEGATIVE); URINE KETONE NEGATIVE (NEGATIVE); URINE LEUK ESTERASE 1+ (NEGATIVE); URINE NITRITE NEGATIVE (NEGATIVE); URINE PROTEIN 2+ (NEGATIVE); URINE RBC 348 /uL (0-23.9); URINE UROBILINOGEN 0.2 mg/dL (0.2-1.0); URINE WBC 91 /uL (0-25.8)
[2020-01-24] MEDS: VASOPRESSIN 40 UNITS in SODIUM CHLORIDE 98 ML IVPB SCH (09:30)
[2020-01-24] MEDS ORDERED: HYDROCORTISONE SOD SUCCINATE 100 MG/2 ML VIAL IVPB SCH (10:30)
[2020-01-24] MEDS ORDERED: HYDROCORTISONE SOD SUCCINATE 100 MG/2 ML VIAL IVPB ONE (10:31)
--- NOTE | 2020-01-24 10:32 | PN ---
Teaching Attending Note Name of Resident: Scarlett Pagna ATTENDING PHYSICIAN STATEMENT I saw and evaluated the patient. I reviewed the resident's note and discussed the case with the resident. I agree with the resident's findings and plan as documented. SUBJECTIVE: Pt seen and examined in the ICU. Remains intubated, sedated. Low grade temps, back on levophed gtt 30mcgs. OBJECTIVE: Vital Signs Period Temp Pulse Resp BP Sys/Callahan Pulse Ox Last 24 Hr 98.8 F-100.2 F 101-158 22-47 68-117/41-72 90-98 Intake & Output 01/21/20 01/22/20 01/23/20 01/24/20 23:59 23:59 23:59 23:59 Intake Total 388.5 2213 2006.0 2569.4 Output Total 3650 4700 1700 650 Balance -3261.5 -2487 306.0 1919.4 Weight 128 kg 126.5 kg 126.5 kg Gen: intubated, sedated Heart: RRR Lung: scattered rhonchi Abd: soft, nontender Ext: wrapped CBC, BMP 01/23/20 05:45 01/23/20 05:45 Active Medications Acetaminophen (Tylenol -) 650 mg PO Q6H PRN PRN Reason: FEVER Last Admin: 01/24/20 06:27 Dose: 650 mg Documented by: Acetaminophen (Ofirmev Injection -) 1,000 mg IVPB Q6H PRN PRN Reason: FEVER Stop: 01/25/20 08:36 Amino Acids (Prosource No Carb Liquid Pkt) 30 ml PO TID [facility] Last Admin: 01/24/20 06:26 Dose: 30 ml Documented by: Apixaban (Eliquis -) 5 mg PO BID [facility] Last Admin: 01/23/20 22:16 Dose: 5 mg Documented by: Atorvastatin Calcium (Lipitor -) 80 mg PO [facility] Last Admin: 01/23/20 22:16 Dose: 80 mg Documented by: Chlorhexidine Gluconate (Hibiclens For Decolonization -) 1 applic TP HS [facility] Last Admin: 01/23/20 22:17 Dose: 1 applic Documented by: Collagenase (Santyl -) 1 applic TP DAILY [facility]; Protocol Last Admin: 01/23/20 10:32 Dose: 1 applic Documented by: Hydrocortisone Sodium Succinate (Solu-Cortef -) 100 mg IVPB ONCE ONE Stop: 01/24/20 10:32 Propofol (Diprivan -) 1,000,000 mcg in 100 mls @ 3.876 mls/hr IVPB TITR [facility]; Protocol Last Titration: 01/23/20 19:26 Dose: 40 mcg/kg/min, 31.008 mls/hr Documented by: Levofloxacin (Levaquin 750 Mg Premixed Ivpb -) 750 mg in 150 mls @ 100 mls/hr IVPB DAILY [facility]; Protocol Last Admin: 01/23/20 10:31 Dose: 100 mls/hr Documented by: Fentanyl (Sublimaze Ivpb) 500 mcg in 100 mls @ 25.3 mls/hr IVPB TITR [facility]; Protocol Stop: 01/24/20 18:59 Last Admin: 01/23/20 09:00 Dose: 100 mcg/kg/hr, 2,530 mls/hr Documented by: Norepinephrine Bitartrate (Levophed Bag) 8,000 mcg in 500 mls @ 18.75 mls/hr IVPB TITR [facility]; Protocol Last Titration: 01/23/20 23:30 Dose: 10 mcg/min, 37.5 mls/hr Documented by: Midazolam HCl (Midazolam 100mg/100ml-0.9%Nacl) 100 mg in 100 mls @ 3 mls/hr IVPB TITR [facility]; Protocol Stop: 01/24/20 21:44 Last Infusion: 01/23/20 23:25 Dose: 10 mg/hr, 10 mls/hr Documented by: Vasopressin 40 units/ Sodium (Chloride) 100 mls @ 5 mls/hr IVPB [facility]; Protocol Insulin Aspart (Novolog Vial Sliding Scale -) 1 vial SQ ACHS [facility]; Protocol Last Admin: 01/24/20 06:28 Dose: 6 units Documented by: Insulin Detemir (Levemir Vial) 5 units SQ HS [facility] Last Admin: 01/23/20 22:17 Dose: 5 units Documented by: Metoprolol Tartrate (Lopressor Injection -) 5 mg IVPUSH Q4H PRN PRN Reason: TACHYCARDIA Last Admin: 01/23/20 16:06 Dose: 5 mg Documented by: Pantoprazole Sodium (Protonix Iv) 40 mg IVPUSH DAILY [facility] Last Admin: 01/23/20 10:32 Dose: 40 mg Documented by: Vancomycin HCl (Vancomycin Oral Solution) 250 mg PO Q6HPO [facility] Last Admin: 01/24/20 06:27 Dose: 250 mg Documented by: ASSESSMENT AND PLAN: Acute Hypoxic Respiratory Failure Cellulitis Pneumonia Septic Shock Acute on Chronic Renal Failure Atrial Fibrillation HTN DM Morbid Obesity BARRY/OHS C Diff Colitis - continue antibiotics, d/w ID broadening coverage - titrate pressors to maintain MAP>65 - stress dose steroids - hold lasix today - monitor urine output, creatinine - titrate FiO2, PEEP to keep SpO2 >90% - wound care - sedate for vent synchrony - enteral feeds - DVT/GI prophylaxis - continue ICU monitoring critical care time spent in reviewing chart, evaluating patient and formulating plan 35 min
[2020-01-24] MEDS ORDERED: HYDROCORTISONE SOD SUCCINATE 100 MG/2 ML VIAL IVPUSH ONE (10:33)
[2020-01-24] MEDS: APIXABAN 5 MG TABLET PO SCH ×2 (10:56→21:58)
[2020-01-24] MEDS: PANTOPRAZOLE SODIUM 40 MG VIAL IVPUSH SCH (10:56)
[2020-01-24 10:58] LABS: BASO % 0.9 % (0-2.0); EOS % 0.4 % (0-4.5); HEMATOCRIT 26.8 % (32.4-45.2); HEMOGLOBIN 8.3 GM/dL (10.7-15.3); LYMPH % 5.6 % (8-40); MCH 27.7 pg (25.7-33.7); MCHC 30.9 g/dl (32.0-36.0); MEAN CELL VOLUME 89.7 fl (80-96); MEAN PLT VOLUME 10.8 fl (7.5-11.1); MONO % 3.9 % (3.8-10.2); NEUT % 89.2 % (42.8-82.8); PLATELET COUNT 444 K/MM3 (134-434); RBC 2.98 M/mm3 (3.60-5.2); RDW 15.6 % (11.6-15.6)
[2020-01-24] MEDS: COLLAGENASE CLOSTRIDIUM HIST. 30 GRAMS TUBE TP SCH (11:12)
--- NOTE | 2020-01-24 11:13 | PN ---
Progress Note, Physician History of Present Illness: DOING POORLY INTUBATED HYPOTENSIVE ON PRESSORS RECURRENT FEVER MARKED LEUKOCYTOSIS REPEAT BC OBTAINED - Current Medication List Current Medications: Active Medications Acetaminophen (Tylenol -) 650 mg PO Q6H PRN PRN Reason: FEVER Last Admin: 01/24/20 06:27 Dose: 650 mg Documented by: Acetaminophen (Ofirmev Injection -) 1,000 mg IVPB Q6H PRN PRN Reason: FEVER Stop: 01/25/20 08:36 Amino Acids (Prosource No Carb Liquid Pkt) 30 ml PO TID [facility] Last Admin: 01/24/20 06:26 Dose: 30 ml Documented by: Apixaban (Eliquis -) 5 mg PO BID [facility] Last Admin: 01/24/20 10:56 Dose: 5 mg Documented by: Atorvastatin Calcium (Lipitor -) 80 mg PO HS [facility] Last Admin: 01/23/20 22:16 Dose: 80 mg Documented by: Chlorhexidine Gluconate (Hibiclens For Decolonization -) 1 applic TP HS [facility] Last Admin: 01/23/20 22:17 Dose: 1 applic Documented by: Collagenase (Santyl -) 1 applic TP DAILY [facility]; Protocol Last Admin: 01/23/20 10:32 Dose: 1 applic Documented by: Hydrocortisone Sodium Succinate (Solu-Cortef -) 100 mg IVPUSH Q8H-IV [facility] Propofol (Diprivan -) 1,000,000 mcg in 100 mls @ 3.876 mls/hr IVPB TITR [facility]; Protocol Last Admin: 01/24/20 09:00 Dose: 50 mcg/kg/min, 38.76 mls/hr Documented by: Levofloxacin (Levaquin 750 Mg Premixed Ivpb -) 750 mg in 150 mls @ 100 mls/hr IVPB DAILY [facility]; Protocol Last Admin: 01/24/20 10:57 Dose: 100 mls/hr Documented by: Fentanyl (Sublimaze Ivpb) 500 mcg in 100 mls @ 25.3 mls/hr IVPB TITR [facility]; Protocol Stop: 01/24/20 18:59 Last Admin: 01/24/20 07:30 Dose: 0.79 mcg/kg/hr, 20 mls/hr Documented by: Norepinephrine Bitartrate (Levophed Bag) 8,000 mcg in 500 mls @ 18.75 mls/hr IVPB TITR [facility]; Protocol Last Titration: 01/23/20 23:30 Dose: 10 mcg/min, 37.5 mls/hr Documented by: Midazolam HCl (Midazolam 100mg/100ml-0.9%Nacl) 100 mg in 100 mls @ 3 mls/hr IVPB TITR [facility]; Protocol Stop: 01/24/20 21:44 Last Infusion: 01/23/20 23:25 Dose: 10 mg/hr, 10 mls/hr Documented by: Vasopressin 40 units/ Sodium (Chloride) 100 mls @ 5 mls/hr IVPB ASDIR [facility]; Protocol Last Admin: 01/24/20 09:30 Dose: 2.4 units/hr, 6 mls/hr Documented by: Insulin Aspart (Novolog Vial Sliding Scale -) 1 vial SQ ACHS [facility]; Protocol Last Admin: 01/24/20 06:28 Dose: 6 units Documented by: Insulin Detemir (Levemir Vial) 5 units SQ HS [facility] Last Admin: 01/23/20 22:17 Dose: 5 units Documented by: Metoprolol Tartrate (Lopressor Injection -) 5 mg IVPUSH Q4H PRN PRN Reason: TACHYCARDIA Last Admin: 01/23/20 16:06 Dose: 5 mg Documented by: Pantoprazole Sodium (Protonix Iv) 40 mg IVPUSH DAILY [facility] Last Admin: 01/24/20 10:56 Dose: 40 mg Documented by: Vancomycin HCl (Vancomycin Oral Solution) 250 mg PO Q6HPO [facility] Last Admin: 01/24/20 06:27 Dose: 250 mg Documented by: - Objective Vital Signs: Vital Signs Temperature 101.1 F H 01/24/20 10:00 Pulse Rate 128 H 01/24/20 10:00 Respiratory Rate 23 H 01/24/20 10:00 Blood Pressure 73/52 L 01/24/20 10:00 O2 Sat by Pulse Oximetry (%) 94 L 01/24/20 10:00 Constitutional: Yes: No Distress Eyes: Yes: Conjunctiva Clear Cardiovascular: Yes: Regular Rate and Rhythm, S1, S2 Respiratory: Yes: Mechanically Ventilated Gastrointestinal: Yes: Normal Bowel Sounds, Soft, Abdomen, Obese Edema: Yes Integumentary: Yes: Venous Stasis Changes Labs: CBC, BMP 01/24/20 10:00 INR, PTT INR 1.17 (0.83-1.09) H 01/15/20 06:30 Fibrinogen > 500.0 mg/dL (238-498) H 01/15/20 06:30 Assessment/Plan RESP FAILURE SEPSIS R/O SEPTIC SHOCK FEVER/LEUKOCYTOSIS C DIFFICILE AZOTEMIA PCN ALLERGY REPEAT BC OBTAINED EMPIRIC MEROPENEM + STAT DOSE VANOMYCIN CONTINUE PO VANCO VENTILATORY/ HEMODYNAMIC SUPPORT
[2020-01-24] MEDS ORDERED: VANCOMYCIN 1 GRAM (PRE-DOCKED) 1,000 MG/250 ML BAG IVPB ONE (11:14)
[2020-01-24 11:24] LABS: ALBUMIN 1.8 g/dl (3.4-5.0); BILIRUBIN,TOTAL 0.6 mg/dL (0.2-1); BLOOD UREA NITROGEN 78.6 mg/dL (7-18); CALCIUM 9.1 mg/dL (8.5-10.1); CREATININE 2.3 mg/dL (0.55-1.3); MAGNESIUM 1.6 mg/dL (1.8-2.4); PHOSPHOROUS 4.9 mg/dL (2.5-4.9); POTASSIUM 3.8 mmol/L (3.5-5.1); TOT PROT 7.6 g/dl (6.4-8.2)
--- NOTE | 2020-01-24 11:36 | PN ---
Progress Note (short form) - Note Progress Note: RENAL pt remains intubated appears comfortable Last Vital Signs Temp Pulse Resp BP Pulse Ox 101.1 F H 128 H 23 H 73/52 L 94 L 01/24/20 10:00 01/24/20 10:00 01/24/20 10:00 01/24/20 10:00 01/24/20 10:00 lungs bilat air entry cvs s1s2 rr abd soft ext dressed, no edema has a rectal tube cuevas in place CBC, BMP 01/24/20 10:00 01/24/20 10:00 Current Medications Generic Name Dose Route Start Last Admin Trade Name Freq PRN Reason Stop Dose Admin Acetaminophen 650 mg 01/21/20 15:23 01/24/20 06:27 Tylenol - PO 650 mg Q6H PRN Administration FEVER Acetaminophen 1,000 mg 01/24/20 08:36 Ofirmev Injection - IVPB 01/25/20 08:36 Q6H PRN FEVER Amino Acids 30 ml 01/13/20 22:00 01/24/20 06:26 Prosource No Carb Liquid Pkt PO 30 ml TID [facility] Administration Apixaban 5 mg 01/23/20 11:30 01/24/20 10:56 Eliquis - PO 5 mg BID [facility] Administration Atorvastatin Calcium 80 mg 01/12/20 22:00 01/23/20 22:16 Lipitor - PO 80 mg HS [facility] Administration Chlorhexidine Gluconate 1 applic 01/10/20 22:00 01/23/20 22:17 Hibiclens For Decolonization - TP 1 applic HS [facility] Administration Collagenase 1 applic 01/11/20 14:15 01/24/20 11:12 Santyl - TP 1 applic DAILY [facility] Administration Protocol Hydrocortisone Sodium Succinate 100 mg 01/24/20 18:00 Solu-Cortef - IVPUSH Q8H-IV [facility] Propofol 1,000,000 mcg in 100 mls @ 3.876 mls/hr 01/20/20 14:01 01/24/20 09:00 Diprivan - IVPB 50 mcg/kg/min TITR [facility] 38.76 mls/hr Administration Protocol 5 MCG/KG/MIN Fentanyl 500 mcg in 100 mls @ 25.3 mls/hr 01/23/20 19:00 01/24/20 07:30 Sublimaze Ivpb IVPB 01/24/20 18:59 0.79 mcg/kg/hr TITR [facility] 20 mls/hr Administration Protocol 1 MCG/KG/HR Norepinephrine Bitartrate 8,000 mcg in 500 mls @ 18.75 mls/hr 01/23/20 21:30 01/23/20 23:30 Levophed Bag IVPB 10 mcg/min TITR [facility] 37.5 mls/hr Titration Protocol 5 MCG/MIN Midazolam HCl 100 mg in 100 mls @ 3 mls/hr 01/23/20 21:45 01/23/20 23:25 Midazolam 100mg/100ml-0.9%Nacl IVPB 01/24/20 21:44 10 mg/hr TITR [facility] 10 mls/hr Infusion Protocol 3 MG/HR Vasopressin 40 units/ Sodium 100 mls @ 5 mls/hr 01/24/20 08:00 01/24/20 09:30 Chloride IVPB 2.4 units/hr ASDIR [facility] 6 mls/hr Administration Protocol 2 UNITS/HR Meropenem 500 mg/ Dextrose 100 mls @ 200 mls/hr 01/24/20 18:00 IVPB Q8H-IV [facility] Vancomycin HCl 1,000 mg/ 250 mls @ 166.667 mls/hr 01/24/20 11:14 Dextrose IVPB 01/24/20 12:43 ONCE ONE Protocol Insulin Aspart 1 vial 01/10/20 22:00 01/24/20 06:28 Novolog Vial Sliding Scale - SQ 6 units ACHS [facility] Administration Protocol Insulin Detemir 5 units 01/21/20 22:00 01/23/20 22:17 Levemir Vial SQ 5 units HS [facility] Administration Metoprolol Tartrate 5 mg 01/20/20 03:09 01/23/20 16:06 Lopressor Injection - IVPUSH 5 mg Q4H PRN Administration TACHYCARDIA Pantoprazole Sodium 40 mg 01/13/20 10:00 01/24/20 10:56 Protonix Iv IVPUSH 40 mg DAILY [facility] Administration Vancomycin HCl 250 mg 01/18/20 18:00 01/24/20 06:27 Vancomycin Oral Solution PO 250 mg Q6HPO [facility] Administration Impression 1. NOVA improved, though not back to baseline 2. hyperkalemia resolved, pt having diarrhea 3. obesity 4. DM 5. a-fib 6. HTN 7. chronic lower extremity ulcers 8. gastritis 9. sepsis- stenotrophomonas maltophilia 10. hyperglycemia 11. metabolic acidosis resolved 12. peripheral vascular disease 13. acute resp failure 14. shock 15. cva 16 leukocytosis Plan - monitor renal function - cont wound care - abx per ID - avoid nephrotoxins -avoid hypotension -would hydrate, note hypotension and rise in creat urine sodium and creat MV
[2020-01-24] MEDS ORDERED: SODIUM CHLORIDE 1,000 ML IV SCH (12:00)
--- NOTE | 2020-01-24 12:01 | PN ---
Physical Exam: SUBJECTIVE: Patient seen and examined at bedside. Pt still spiking fevers overnight. Intubated and sedated. Continued on on Levophed 30. OBJECTIVE: Vital Signs Period Temp Pulse Resp BP Sys/Callahan Pulse Ox Last 24 Hr 98.8 F-101.1 F 101-158 22-47 68-117/41-72 90-98 GENERAL: The patient is sedated, intubated. HEAD: Normal with no signs of trauma. EYES: PERRL ENT: intubated NECK: R IJ in place LUNGS: front upper lungs breath sounds CTA BL HEART: irregularly irregular, S1, S2 ABDOMEN: Obese, soft, nontender, nondistended EXTREMITIES: BL edema NEUROLOGICAL: Pt unresponsive to noxious stimuli SKIN: BL LE ulcers bandaged Laboratory Results - last 24 hr 01/19/20 01/23/20 01/23/20 05:00 12:10 16:52 WBC RBC Hgb Hct MCV MCH MCHC RDW Plt Count MPV Absolute Neuts (auto) Neutrophils % Lymphocytes % Monocytes % Eosinophils % Basophils % Nucleated RBC % Anticoagulation Therapy Puncture Site Patient Temperature ABG pH ABG pCO2 ABG pO2 ABG HCO3 ABG O2 Sat (Measured) ABG O2 Content ABG Base Excess Kwesi Test Patient On Oxygen O2 Delivery Device Oxygen Flow Rate Vent Mode Vent Rate Mechanical Rate PEEP Pressure Support Vent Sodium Potassium Chloride Carbon Dioxide Anion Gap BUN Creatinine Est GFR (CKD-EPI)AfAm Est GFR (CKD-EPI)NonAf POC Glucometer 257 164 Random Glucose Calcium Phosphorus Magnesium Total Bilirubin AST ALT Alkaline Phosphatase Total Protein Albumin Cortisol AM Sample 17.9 Urine Color Urine Appearance Urine pH Ur Specific [place] Urine Protein Urine Glucose (UA) Urine Ketones Urine Blood Urine Nitrite Urine Bilirubin Urine Urobilinogen Ur Leukocyte Esterase Urine WBC (Auto) Urine RBC (Auto) Urine Casts (Auto) U Epithel Cells (Auto) U Sm Round Cell (Auto) Urine Bacteria (Auto) 01/23/20 01/23/20 01/24/20 16:54 21:49 00:01 WBC RBC Hgb Hct MCV MCH MCHC RDW Plt Count MPV Absolute Neuts (auto) Neutrophils % Lymphocytes % Monocytes % Eosinophils % Basophils % Nucleated RBC % Anticoagulation Therapy No Result Required. Puncture Site Right radial Patient Temperature 96.9 ABG pH 7.360 ABG pCO2 32.10 L ABG pO2 59.5 L ABG HCO3 17.7 L ABG O2 Sat (Measured) 90.2 L ABG O2 Content No Result Required. ABG Base Excess -6.6 L Kwesi Test Positive Patient On Oxygen Yes O2 Delivery Device Vent Oxygen Flow Rate 80% Vent Mode A/c Vent Rate 22 Mechanical Rate No Result Required. PEEP 8.0 Pressure Support Vent 500 Sodium Potassium Chloride Carbon Dioxide Anion Gap BUN Creatinine Est GFR (CKD-EPI)AfAm Est GFR (CKD-EPI)NonAf POC Glucometer 111 252 Random Glucose Calcium Phosphorus Magnesium Total Bilirubin AST ALT Alkaline Phosphatase Total Protein Albumin Cortisol AM Sample Urine Color Urine Appearance Urine pH Ur Specific [place] Urine Protein Urine Glucose (UA) Urine Ketones Urine Blood Urine Nitrite Urine Bilirubin Urine Urobilinogen Ur Leukocyte Esterase Urine WBC (Auto) Urine RBC (Auto) Urine Casts (Auto) U Epithel Cells (Auto) U Sm Round Cell (Auto) Urine Bacteria (Auto) 01/24/20 01/24/20 01/24/20 06:19 06:25 10:00 WBC 46.0 H* RBC 2.98 L Hgb 8.3 L Hct 26.8 L MCV 89.7 MCH 27.7 MCHC 30.9 L RDW 15.6 Plt Count 444 H D MPV 10.8 Absolute Neuts (auto) 41.1 H Neutrophils % 89.2 H Lymphocytes % 5.6 L D Monocytes % 3.9 Eosinophils % 0.4 Basophils % 0.9 Nucleated RBC % 0 Anticoagulation Therapy Puncture Site Patient Temperature ABG pH ABG pCO2 ABG pO2 ABG HCO3 ABG O2 Sat (Measured) ABG O2 Content ABG Base Excess Kwesi Test Patient On Oxygen O2 Delivery Device Oxygen Flow Rate Vent Mode Vent Rate Mechanical Rate PEEP Pressure Support Vent Sodium Potassium Chloride Carbon Dioxide Anion Gap BUN Creatinine Est GFR (CKD-EPI)AfAm Est GFR (CKD-EPI)NonAf POC Glucometer 273 Random Glucose Calcium Phosphorus Magnesium Total Bilirubin AST ALT Alkaline Phosphatase Total Protein Albumin Cortisol AM Sample Urine Color Yellow Urine Appearance Cloudy Urine pH 5.0 Ur Specific [place] 1.020 Urine Protein 2+ H Urine Glucose (UA) Negative Urine Ketones Negative Urine Blood 2+ H Urine Nitrite Negative Urine Bilirubin Negative Urine Urobilinogen 0.2 Ur Leukocyte Esterase 1+ H Urine WBC (Auto) 91 Urine RBC (Auto) 348 Urine Casts (Auto) 3 U Epithel Cells (Auto) >36 U Sm Round Cell (Auto) Non seen Urine Bacteria (Auto) 4 01/24/20 10:00 WBC RBC Hgb Hct MCV MCH MCHC RDW Plt Count MPV Absolute Neuts (auto) Neutrophils % Lymphocytes % Monocytes % Eosinophils % Basophils % Nucleated RBC % Anticoagulation Therapy Puncture Site Patient Temperature ABG pH ABG pCO2 ABG pO2 ABG HCO3 ABG O2 Sat (Measured) ABG O2 Content ABG Base Excess Kwesi Test Patient On Oxygen O2 Delivery Device Oxygen Flow Rate Vent Mode Vent Rate Mechanical Rate PEEP Pressure Support Vent Sodium 139 Potassium 3.8 Chloride 108 H Carbon Dioxide 20 L Anion Gap 11 BUN 78.6 H Creatinine 2.3 H Est GFR (CKD-EPI)AfAm 26.64 Est GFR (CKD-EPI)NonAf 22.99 POC Glucometer Random Glucose 281 H Calcium 9.1 Phosphorus 4.9 Magnesium 1.6 L Total Bilirubin 0.6 AST 20 ALT 19 Alkaline Phosphatase 120 H Total Protein 7.6 Albumin 1.8 L Cortisol AM Sample Urine Color Urine Appearance Urine pH Ur Specific [place] Urine Protein Urine Glucose (UA) Urine Ketones Urine Blood Urine Nitrite Urine Bilirubin Urine Urobilinogen Ur Leukocyte Esterase Urine WBC (Auto) Urine RBC (Auto) Urine Casts (Auto) U Epithel Cells (Auto) U Sm Round Cell (Auto) Urine Bacteria (Auto) Active Medications Generic Name Dose Route Start Last Admin Trade Name Freq PRN Reason Stop Dose Admin Acetaminophen 650 mg 01/21/20 15:23 01/24/20 06:27 Tylenol - PO 650 mg Q6H PRN Administration FEVER Acetaminophen 1,000 mg 01/24/20 08:36 Ofirmev Injection - IVPB 01/25/20 08:36 Q6H PRN FEVER Amino Acids 30 ml 01/13/20 22:00 01/24/20 06:26 Prosource No Carb Liquid Pkt PO 30 ml TID LANCE Administration Apixaban 5 mg 01/23/20 11:30 01/24/20 10:56 Eliquis - PO 5 mg BID LANCE Administration Atorvastatin Calcium 80 mg 01/12/20 22:00 01/23/20 22:16 Lipitor - PO 80 mg HS LANCE Administration Chlorhexidine Gluconate 1 applic 01/10/20 22:00 01/23/20 22:17 Hibiclens For Decolonization - TP 1 applic HS LANCE Administration Collagenase 1 applic 01/11/20 14:15 01/24/20 11:12 Santyl - TP 1 applic DAILY [facility]ANCE Administration Protocol Hydrocortisone Sodium Succinate 100 mg 01/24/20 18:00 Solu-Cortef - IVPUSH Q8H-IV LANCE Propofol 1,000,000 mcg in 100 mls @ 3.876 mls/hr 01/20/20 14:01 01/24/20 09:00 Diprivan - IVPB 50 mcg/kg/min TITR LANCE 38.76 mls/hr Administration Protocol 5 MCG/KG/MIN Fentanyl 500 mcg in 100 mls @ 25.3 mls/hr 01/23/20 19:00 01/24/20 07:30 Sublimaze Ivpb IVPB 01/24/20 18:59 0.79 mcg/kg/hr TITR LANCE 20 mls/hr Administration Protocol 1 MCG/KG/HR Norepinephrine Bitartrate 8,000 mcg in 500 mls @ 18.75 mls/hr 01/23/20 21:30 01/23/20 23:30 Levophed Bag IVPB 10 mcg/min TITR [facility] 37.5 mls/hr Titration Protocol 5 MCG/MIN Midazolam HCl 100 mg in 100 mls @ 3 mls/hr 01/23/20 21:45 01/23/20 23:25 Midazolam 100mg/100ml-0.9%Nacl IVPB 01/24/20 21:44 10 mg/hr TITR LANCE 10 mls/hr Infusion Protocol 3 MG/HR Vasopressin 40 units/ Sodium 100 mls @ 5 mls/hr 01/24/20 08:00 01/24/20 09:30 Chloride IVPB 2.4 units/hr ASDIR [facility] 6 mls/hr Administration Protocol 2 UNITS/HR Meropenem 500 mg/ Dextrose 100 mls @ 200 mls/hr 01/24/20 18:00 IVPB Q8H-IV [facility] Vancomycin HCl 1,000 mg in 250 mls @ 166.667 mls/hr 01/24/20 11:14 Vancomycin (Pre-Docked) IVPB 01/24/20 12:43 ONCE ONE Protocol Insulin Aspart 1 vial 01/10/20 22:00 01/24/20 06:28 Novolog Vial Sliding Scale - SQ 6 units ACHS LANCE Administration Protocol Insulin Detemir 5 units 01/21/20 22:00 01/23/20 22:17 Levemir Vial SQ 5 units HS LANCE Administration Metoprolol Tartrate 5 mg 08/26/20 03:09 01/23/20 16:06 Lopressor Injection - IVPUSH 5 mg Q4H PRN Administration TACHYCARDIA Pantoprazole Sodium 40 mg 01/13/20 10:00 01/24/20 10:56 Protonix Iv IVPUSH 40 mg DAILY [facility] Administration Vancomycin HCl 250 mg 01/18/20 18:00 01/24/20 06:27 Vancomycin Oral Solution PO 250 mg Q6HPO LANCE Administration ASSESSMENT/PLAN: 54 yo F with a hx of CKD, afib, DM, and chronic LE ulcers presented with weakness to the emergency department resulting in emergency HD with hypoxic respiratory failure with suspected septic shock 2/2 cellulitis and PNA Neuro #Acute Metabolic Encephalopathy 2/2 Infection -Intubated and sedated -On Fentanyl and Propofol to improve vent synchrony -Daily weaning trials; assess mental status -Head CT (01/21): Evolving R parietal acute/subacute infarct again seen w/ interval minimal increase tiny foci of hemorrhagic transformation; no shift of midline structures Pulm #Acute Hypoxic Respiratory Failure -Intubated; vent settings: 22/500/60%/8 -Continue to keep SpO2 >90% -Start Hydrocortisone 100 mg Q8H CV #Septic Shock #Atrial Fibrillation #HTN #Chronic Diastolic CHF -Currently rate-controlled -Requiring pressor support; Levophed 30 -Maintain MAP >65 -Atorvastatin 80, Lopressor IVP PRN ID #Pneumonia #C. Diff Infection -Cont to spike fevers, worsening leukocytosis -PO Vanc 250 mg Q6H -Per ID, will treat with IV Meropenem (started 01/23); (previously on Levofloxacin, started 01/21) -Worsening leukocytosis; 28.9 --> 46 today -Repeat BCx and Ucx pending; Sputum Cx ordered. Await final c/s -Cont PO Vanc (started on 01/17) -IV Tylenol for fever PRN Renal #Acute on Chronic Renal Failure -Worse today, Cr 2.3 (from 1.6 yesterday) -Continue to monitor I/O; 2100 cc over past 24 hours -No Lasix needed today -Nephro following -Tamsulosin d/c'd Endo #DM -Levemir 5U HS -BGM/ISS ACHS FEN -no IVf -recheck lytes in AM (Mg 1.6, repleted today) -Tube Feed Nepro Prophylaxis DVT: On home Eliquis 5 BID GI: Protonix 40 IV QD LTD Intubated: 01/10 Johnson: 01/09 RIJ: 01/18/2020 Dispo -cont to monitor in ICU Visit type - Emergency Visit Emergency Visit: Yes ED Registration Date: 01/10/20 Care time: The patient presented to the Emergency Department on the above date and was hospitalized for further evaluation of their emergent condition. - New Patient This patient is new to me today: Yes Date on this admission: 01/24/20 - Critical Care Critical Care patient: Yes Total Critical Care Time (in minutes): 40 Critical Care Statement: The care of this patient involved high complexity decision making to prevent further life threatening deterioration of the patient's condition and/or to evaluate & treat vital organ system(s) failure or risk of failure. ATTENDING PHYSICIAN STATEMENT I saw and evaluated the patient. I reviewed the resident's note and discussed the case with the resident. I agree with the resident's findings and plan as documented. SUBJECTIVE: OBJECTIVE: ASSESSMENT AND PLAN:
[2020-01-24 12:04] LABS: ANISOCYTOSIS 1+; PLATELET ESTIMATE NORMAL
[2020-01-24] MEDS ORDERED: MAGNESIUM 1GM/D5W 100ML - 100 ML IVPB IVPB ONE (12:15)
[2020-01-24] MEDS: ACETAMINOPHEN 1000 MG/100 ML VIAL (NON FORMULARY) IVPB PRN ×2 (13:00→22:02)
[2020-01-24] MEDS: NOREPINEPHRINE BITARTRATE 8,000 MCG/500 ML BAG IVPB SCH (13:54)
[2020-01-24] MEDS: MIDAZOLAM IN 0.9 % SOD.CHLORID 100 MG/100 ML PLAST..BAG IVPB SCH (13:56)
[2020-01-24] MEDS ORDERED: MEROPENEM 500 MG VIAL (RESTRICTED TO ID) IVPB ONE (16:58)
[2020-01-24] MEDS ORDERED: DEXTROSE 5%-WATER 100 ML IVPB ONE (16:58)
[2020-01-24] MEDS: MEROPENEM 500 MG in DEXTROSE 5%-WATER 100 ML IVPB SCH (17:03)
[2020-01-24] MEDS: HYDROCORTISONE SOD SUCCINATE 100 MG/2 ML VIAL IVPUSH SCH (18:00)
[2020-01-24] MEDS: NOREPINEPHRINE BITARTRATE 16,000 MCG in SODIUM CHLORIDE 484 ML IV SCH (18:00)
[2020-01-24] MEDS: FENTANYL NS IVPB 500 MCG/100 ML BAG IVPB SCH (18:04)
[2020-01-24] MEDS ORDERED: INSULIN (LEVEMIR) 100 UNITS/ML UNITS SQ ONE (18:07)
[2020-01-24] MEDS: CHLORHEXIDINE GLUCONATE 4% CLEANSER FOR DECOLONIZATION TP SCH (21:58)
[2020-01-24] MEDS: ATORVASTATIN CA 80 MG TABLET (FP) PO SCH (21:58)
[2020-01-24] MEDS: INSULIN (LEVEMIR) 100 UNITS/ML UNITS SQ SCH (21:59)
[2020-01-25] MEDS ORDERED: DEXTROSE 5%-WATER 100 ML IVPB ONE ×3 (00:49→18:05)
[2020-01-25] MEDS ORDERED: MEROPENEM 500 MG VIAL (RESTRICTED TO ID) IVPB ONE ×3 (00:49→18:05)
[2020-01-25] MEDS: HYDROCORTISONE SOD SUCCINATE 100 MG/2 ML VIAL IVPUSH SCH ×3 (01:38→18:02)
[2020-01-25] MEDS: MEROPENEM 500 MG in DEXTROSE 5%-WATER 100 ML IVPB SCH ×3 (01:38→18:11)
[2020-01-25] MEDS ORDERED: PROPOFOL 1,000,000 MCG/100 ML VIAL ONE (05:06)
[2020-01-25] MEDS ORDERED: PT OWN MED DRAWER 7, Y5N ONE (05:06)
[2020-01-25] MEDS: VANCOMYCIN 250 MG/5 ML ORAL SOLUTION PO SCH ×3 (05:09→18:02)
[2020-01-25] MEDS: AMINO ACIDS/PROTEIN HYDROLYS 30 ML LIQUID.PKT PO SCH ×3 (05:09→21:11)
[2020-01-25] MEDS: INSULIN SLIDING SCALE (NOVOLOG) 1 VIAL SQ SCH ×4 (06:20→21:17)
[2020-01-25 07:32] LABS: BASO % 0.2 % (0-2.0); HEMATOCRIT 24.2 % (32.4-45.2); HEMOGLOBIN 7.5 GM/dL (10.7-15.3); LYMPH % 1.4 % (8-40); MCH 27.2 pg (25.7-33.7); MCHC 30.8 g/dl (32.0-36.0); MEAN CELL VOLUME 88.2 fl (80-96); MEAN PLT VOLUME 10.7 fl (7.5-11.1); MONO % 1.7 % (3.8-10.2); NEUT % 96.7 % (42.8-82.8); PLATELET COUNT 433 K/MM3 (134-434); RBC 2.75 M/mm3 (3.60-5.2); RDW 15.2 % (11.6-15.6)
[2020-01-25 07:34] LABS: ALBUMIN 1.6 g/dl (3.4-5.0); BILIRUBIN,TOTAL 0.6 mg/dL (0.2-1); BLOOD UREA NITROGEN 84.9 mg/dL (7-18); CALCIUM 8.2 mg/dL (8.5-10.1); MAGNESIUM 1.9 mg/dL (1.8-2.4); PHOSPHOROUS 8.8 mg/dL (2.5-4.9); POTASSIUM 5.1 mmol/L (3.5-5.1); TOT PROT 7.2 g/dl (6.4-8.2)
[2020-01-25 07:54] LABS: WHITE BLOOD COUNT 37.9 K/mm3 (4.0-10.0)
--- NOTE | 2020-01-25 08:05 | PN ---
Progress Note, Physician Chief Complaint: EVENTS AND NOTES REVIEWED PATIENT BP LOW ON MULTIPLE BP SUPPORT MEDICATIONS - Current Medication List Current Medications: Active Medications Acetaminophen (Tylenol -) 650 mg PO Q6H PRN PRN Reason: FEVER Last Admin: 01/24/20 06:27 Dose: 650 mg Documented by: Acetaminophen (Ofirmev Injection -) 1,000 mg IVPB Q6H PRN PRN Reason: FEVER Stop: 01/25/20 08:36 Last Admin: 01/24/20 22:02 Dose: 1,000 mg Documented by: Amino Acids (Prosource No Carb Liquid Pkt) 30 ml PO TID LANCE Last Admin: 01/25/20 05:09 Dose: 30 ml Documented by: Apixaban (Eliquis -) 5 mg PO BID LANCE Last Admin: 01/24/20 21:58 Dose: 5 mg Documented by: Atorvastatin Calcium (Lipitor -) 80 mg PO HS LANCE Last Admin: 01/24/20 21:58 Dose: 80 mg Documented by: Chlorhexidine Gluconate (Hibiclens For Decolonization -) 1 applic TP HS LANCE Last Admin: 01/24/20 21:58 Dose: 1 applic Documented by: Collagenase (Santyl -) 1 applic TP DAILY LANCE; Protocol Last Admin: 01/24/20 11:12 Dose: 1 applic Documented by: Hydrocortisone Sodium Succinate (Solu-Cortef -) 100 mg IVPUSH Q8H-IV LANCE Last Admin: 01/25/20 01:38 Dose: 100 mg Documented by: Propofol (Diprivan -) 1,000,000 mcg in 100 mls @ 3.876 mls/hr IVPB TITR LANCE; Protocol Last Admin: 01/24/20 17:04 Dose: 50 mcg/kg/min, 38.76 mls/hr Documented by: Vasopressin 40 units/ Sodium (Chloride) 100 mls @ 5 mls/hr IVPB ASDIR [facility]; Protocol Last Admin: 01/24/20 09:30 Dose: 2.4 units/hr, 6 mls/hr Documented by: Meropenem 500 mg/ Dextrose 100 mls @ 200 mls/hr IVPB Q8H-IV LANCE Last Admin: 01/25/20 01:38 Dose: 200 mls/hr Documented by: Sodium Chloride (Normal Saline -) 1,000 mls @ 75 mls/hr IV ASDIR LANCE Last Admin: 01/24/20 12:45 Dose: 75 mls/hr Documented by: Norepinephrine Bitartrate 16, (000 mcg/ Sodium Chloride) 500 mls @ 9.375 mls/hr IV TITR [facility]; Protocol Last Titration: 01/25/20 06:00 Dose: 10 mcg/min, 18.75 mls/hr Documented by: Fentanyl (Sublimaze Ivpb) 500 mcg in 100 mls @ 1 mls/hr IVPB TITR [facility] Last Admin: 01/24/20 18:04 Dose: 100 mcg/hr, 20 mls/hr Documented by: Insulin Aspart (Novolog Vial Sliding Scale -) 1 vial SQ ACHS [facility]; Protocol Last Admin: 01/25/20 06:20 Dose: 8 units Documented by: Insulin Detemir (Levemir Vial) 5 units SQ HS [facility] Last Admin: 01/24/20 21:59 Dose: 5 units Documented by: Metoprolol Tartrate (Lopressor Injection -) 5 mg IVPUSH Q4H PRN PRN Reason: TACHYCARDIA Last Admin: 01/23/20 16:06 Dose: 5 mg Documented by: Pantoprazole Sodium (Protonix Iv) 40 mg IVPUSH DAILY [facility] Last Admin: 01/24/20 10:56 Dose: 40 mg Documented by: Vancomycin HCl (Vancomycin Oral Solution) 250 mg PO Q6HPO [facility] Last Admin: 01/25/20 05:09 Dose: 250 mg Documented by: - Objective Vital Signs: Vital Signs Temperature 100.5 F H 01/25/20 06:59 Pulse Rate 71 01/25/20 06:00 Respiratory Rate 22 H 01/25/20 06:00 Blood Pressure 131/76 01/25/20 06:00 O2 Sat by Pulse Oximetry (%) 100 01/25/20 06:00 Constitutional: Yes: Other Cardiovascular: Yes: Tachycardia, Pulse Irregular Respiratory: Yes: Diminished, Mechanically Ventilated Gastrointestinal: Yes: Abdomen, Obese, Distention ...Rectal Exam: Yes: Other (RECTAL TUBE WITH BROWN STOOL) Genitourinary: Yes: Incontinence Musculoskeletal: Yes: Muscle Weakness Extremities: Yes: Erythema Edema: Yes Edema: LLE: 4+, RLE: 4+ Integumentary: Yes: Pressure Ulcer, Rash, Skin Tear, Venous Stasis Changes Wound/Incision: Yes: Dressing Dry and Intact, Excoriated, Unapproximated Neurological: Yes: Pre-Existing Deficit Labs: CBC, BMP 01/25/20 06:00 01/25/20 06:00 INR, PTT INR 1.17 (0.83-1.09) H 01/15/20 06:30 Fibrinogen > 500.0 mg/dL (238-498) H 01/15/20 06:30 Problem List - Problems (1) ARF (acute renal failure) Code(s): N17.9 - ACUTE KIDNEY FAILURE, UNSPECIFIED Qualifiers: Acute renal failure type: unspecified Qualified Code(s): N17.9 - Acute kidney failure, unspecified (2) CVA (cerebral vascular accident) Code(s): I63.9 - CEREBRAL INFARCTION, UNSPECIFIED (3) Diabetic calf ulcer Code(s): E11.622 - TYPE 2 DIABETES MELLITUS WITH OTHER SKIN ULCER; L97.209 - NON-PRESSURE CHRONIC ULCER OF UNSP CALF WITH UNSP SEVERITY (4) Hyperkalemia Code(s): E87.5 - HYPERKALEMIA (5) Respiratory failure Code(s): J96.90 - RESPIRATORY FAILURE, UNSP, UNSP W HYPOXIA OR HYPERCAPNIA (6) Septic shock Code(s): A41.9 - SEPSIS, UNSPECIFIED ORGANISM; R65.21 - SEVERE SEPSIS WITH SEPTIC SHOCK (7) NOVA (acute kidney injury) Code(s): N17.9 - ACUTE KIDNEY FAILURE, UNSPECIFIED (8) Abdominal lymphadenopathy Code(s): R59.0 - LOCALIZED ENLARGED LYMPH NODES (9) Afib Code(s): I48.91 - UNSPECIFIED ATRIAL FIBRILLATION Qualifiers: Atrial fibrillation type: paroxysmal Qualified Code(s): I48.0 - Paroxysmal atrial fibrillation (10) Bilateral leg ulcer Code(s): L97.919 - NON-PRS CHRONIC ULC UNSP PRT OF R LOW LEG W UNSP SEVERITY; L97.929 - NON-PRS CHRONIC ULC UNSP PRT OF L LOW LEG W UNSP SEVERITY Qualifiers: Non-pressure ulcer stage: limited to breakdown of skin Qualified Code(s): L97.911 - Non-pressure chronic ulcer of unspecified part of right lower leg limited to breakdown of skin; L97.921 - Non-pressure chronic ulcer of unspecified part of left lower leg limited to breakdown of skin (11) Chronic cellulitis Code(s): L03.90 - CELLULITIS, UNSPECIFIED (12) Severe sepsis Code(s): A41.9 - SEPSIS, UNSPECIFIED ORGANISM; R65.20 - SEVERE SEPSIS WITHOUT SEPTIC SHOCK Assessment/Plan IV ABX PER ID ON MULTIPLE ANTIBIOTICS RESISTANT BLOOD AND URINE CULTURES WITH SOME SENSITIVE ORGANISMS. INTUBATED WITH UNSTABLE BP HYPOTENSIVE ON PRESSURE SUPPORT SEPSIS/HYPOTENSION/SHOCK WORSENING RENAL FUNCTION NEPHROLOGY EVAL AND F/U GOALS OF CARE NEED TO REVIEWED HOWEVER HER NEXT OF KIN IS HER BROTHER WHO IN THE PAST HAS NOT BEEN RELIABLE TO MEET TO DISCUSS CASE. WILL REACHOUT TOMORROW
[2020-01-25 09:16] LABS: ANISOCYTOSIS 1+; MACROCYTOSIS 1+; OVALOCYTE 1+; PLATELET ESTIMATE NORMAL
[2020-01-25] MEDS ORDERED: VECURONIUM BROMIDE 10 MG/10 ML VIAL ONE (09:21)
[2020-01-25] MEDS ORDERED: PHENYLEPHRINE HCL 10 MG/1 ML SINGLE DOSE VIAL ONE (09:26)
[2020-01-25] MEDS ORDERED: DOPAMINE 400 MG/D5W - 400,000 MCG/250 ML INFUS.BAG IVPB ONE (09:27)
[2020-01-25] MEDS: DOPAMINE 400 MG/D5W - 400,000 MCG/250 ML INFUS.BAG IVPB SCH ×2 (09:30→20:15)
[2020-01-25] MEDS ORDERED: SODIUM BICARBONATE 8.4% - 50 ML ONE (09:50)
[2020-01-25] MEDS ORDERED: AMIODARONE IN DEXTROSE,ISO-OSM 360 MG/200 ML BAG ONE ×2 (09:55→15:18)
[2020-01-25] MEDS: APIXABAN 5 MG TABLET PO SCH (10:12)
[2020-01-25] MEDS: PANTOPRAZOLE SODIUM 40 MG VIAL IVPUSH SCH (10:12)
[2020-01-25] MEDS: COLLAGENASE CLOSTRIDIUM HIST. 30 GRAMS TUBE TP SCH (10:12)
[2020-01-25] MEDS ORDERED: NOREPINEPHRINE BITARTRATE 4 MG/4 ML ML IV ONE (10:17)
[2020-01-25] MEDS: NOREPINEPHRINE BITARTRATE 16,000 MCG in SODIUM CHLORIDE 484 ML IV SCH (10:50)
--- NOTE | 2020-01-25 11:45 | PN ---
Progress Note (short form) - Note Progress Note: remains intubated and sedated w/e events noted- fevers, hypotension cultures sent and started on vanco/meropenemand pressors- levophen and vasopressin yesterday this am was hypoxic - became bradycardic and coded, CPR started, developed VT - now on 3 pressors steroids started as well Vital Signs Period Temp Pulse Resp BP Sys/Callahan Pulse Ox Last 24 Hr 100.0 F-101.5 F 71-114 13-25 90-135/49-82 92-100 cor-rrr llungs decreased bs at bases abd soft,nt ext +ecchymoses inner thighs legs with venous stasis ulcers- clean CBC, BMP 01/25/20 06:00 01/25/20 06:00 Microbiology 01/24/20 12:50 Sputum - Endotrachea Suction/Ventilator Gram Stain - Final 01/24/20 12:50 Sputum - Endotrachea Suction/Ventilator Sputum Culture - Preliminary Lactose Fermenting Neg Bacilli 01/24/20 10:00 Urine - Urine Johnson Urine Culture - Final Lactose Fermenting Neg Bacilli 01/23/20 17:30 Blood - Peripheral Venous Blood Culture - Preliminary NO GROWTH OBTAINED AFTER 24 HOURS, INCUBATION TO CONTINUE FOR 4 DAYS. 01/23/20 17:30 Blood - Peripheral Venous Blood Culture - Preliminary NO GROWTH OBTAINED AFTER 24 HOURS, INCUBATION TO CONTINUE FOR 4 DAYS. 01/21/20 17:00 Blood - Peripheral Venous Blood Culture - Preliminary NO GROWTH OBTAINED AFTER 72 HOURS, INCUBATION TO CONTINUE FOR 2 DAYS. 01/21/20 17:00 Blood - Peripheral Venous Blood Culture - Preliminary NO GROWTH OBTAINED AFTER 72 HOURS, INCUBATION TO CONTINUE FOR 2 DAYS. 01/18/20 18:00 Blood - Central Line Blood Culture - Final NO GROWTH AFTER 5 DAYS INCUBATION 01/18/20 18:00 Blood - Central Line Blood Culture - Final NO GROWTH AFTER 5 DAYS INCUBATION 01/18/20 21:35 Sputum - Endotrachea Suction/Ventilator Gram Stain - Final 01/18/20 21:35 Sputum - Endotrachea Suction/Ventilator Sputum Culture - Final Stenotrophomon.(X.)Maltophilia Yeast Like Organism 01/16/20 10:02 Blood - Peripheral Venous Blood Culture - Final NO GROWTH AFTER 5 DAYS INCUBATION 01/16/20 10:02 Blood - Peripheral Venous Blood Culture - Final NO GROWTH AFTER 5 DAYS INCUBATION 01/17/20 12:50 Sputum - Endotrachea Suction/Ventilator Gram Stain - Final 01/17/20 12:50 Sputum - Endotrachea Suction/Ventilator Sputum Culture - Final Stenotrophomon.(X.)Maltophilia Yeast Like Organism 01/17/20 15:00 Stool Clostridioides difficile Antigen - Final 01/17/20 15:00 Stool Clostridioides difficile Toxin Assay - Final 01/10/20 11:10 Blood - Peripheral Venous Blood Culture - Final NO GROWTH AFTER 5 DAYS INCUBATION 01/10/20 11:10 Blood - Peripheral Venous Blood Culture - Final NO GROWTH AFTER 5 DAYS INCUBATION 01/10/20 11:10 Leg - Right Lower Gram Stain - Final 01/10/20 11:10 Leg - Right Lower Wound Culture - Final Klebsiella Pneumoniae Proteus Mirabilis Enterococcus Avium Lactose Fermenting Neg Bacilli 01/10/20 16:00 Urine - Urine - Catheterized Urine Culture - Final NO GROWTH OBTAINED cxray with progressive left lung infiltrates Active Medications Acetaminophen (Tylenol -) 650 mg PO Q6H PRN PRN Reason: FEVER Last Admin: 01/24/20 06:27 Dose: 650 mg Documented by: Amino Acids (Prosource No Carb Liquid Pkt) 30 ml PO TID [facility] Last Admin: 01/25/20 05:09 Dose: 30 ml Documented by: Apixaban (Eliquis -) 5 mg PO BID [facility] Last Admin: 01/25/20 10:12 Dose: Not Given Documented by: Atorvastatin Calcium (Lipitor -) 80 mg PO [facility] Last Admin: 01/24/20 21:58 Dose: 80 mg Documented by: Chlorhexidine Gluconate (Hibiclens For Decolonization -) 1 applic TP HS [facility] Last Admin: 01/24/20 21:58 Dose: 1 applic Documented by: Collagenase (Santyl -) 1 applic TP DAILY [facility]; Protocol Last Admin: 01/25/20 10:12 Dose: Not Given Documented by: Hydrocortisone Sodium Succinate (Solu-Cortef -) 100 mg IVPUSH Q8H-IV [facility] Last Admin: 01/25/20 10:12 Dose: 100 mg Documented by: Propofol (Diprivan -) 1,000,000 mcg in 100 mls @ 3.876 mls/hr IVPB TITR [facility]; Protocol Last Admin: 01/24/20 17:04 Dose: 50 mcg/kg/min, 38.76 mls/hr Documented by: Vasopressin 40 units/ Sodium (Chloride) 100 mls @ 5 mls/hr IVPB [facility]IR [facility]; Protocol Last Admin: 01/24/20 09:30 Dose: 2.4 units/hr, 6 mls/hr Documented by: Meropenem 500 mg/ Dextrose 100 mls @ 200 mls/hr IVPB Q8H-IV [facility] Last Admin: 01/25/20 10:12 Dose: 200 mls/hr Documented by: Norepinephrine Bitartrate 16, (000 mcg/ Sodium Chloride) 500 mls @ 9.375 mls/hr IV TITR [facility]; Protocol Last Titration: 01/25/20 06:00 Dose: 10 mcg/min, 18.75 mls/hr Documented by: Fentanyl (Sublimaze Ivpb) 500 mcg in 100 mls @ 1 mls/hr IVPB TITR [facility] Last Admin: 01/24/20 18:04 Dose: 100 mcg/hr, 20 mls/hr Documented by: Sodium Chloride (Normal Saline -) 1,000 mls @ 100 mls/hr IV ASDIR LANCE Dopamine HCl/Dextrose (Dopamine 400 Mg/D5w -) 400,000 mcg in 250 mls @ 24.001 mls/hr IVPB TITR [facility]; Protocol Last Admin: 01/25/20 09:30 Dose: 15 mcg/kg/min, 72.002 mls/hr Documented by: Insulin Aspart (Novolog Vial Sliding Scale -) 1 vial SQ ACHS [facility]; Protocol Last Admin: 01/25/20 06:20 Dose: 8 units Documented by: Insulin Detemir (Levemir Vial) 5 units SQ HS [facility] Last Admin: 01/24/20 21:59 Dose: 5 units Documented by: Metoprolol Tartrate (Lopressor Injection -) 5 mg IVPUSH Q4H PRN PRN Reason: TACHYCARDIA Last Admin: 01/23/20 16:06 Dose: 5 mg Documented by: Pantoprazole Sodium (Protonix Iv) 40 mg IVPUSH DAILY [facility] Last Admin: 01/25/20 10:12 Dose: 40 mg Documented by: Vancomycin HCl (Vancomycin Oral Solution) 250 mg PO Q6HPO [facility] Last Admin: 01/25/20 05:09 Dose: 250 mg Documented by: a/p s/p cardiac arrest this am septic shock worsening leukocytosis +cdiff antigen with diarrhea, po vancomycin day #6 line changed now on meropenem with GNR in sputum and worsening cxray (LF per micro) resp failure-remains intubated NOVA/CKD-worsening chronic venous stasis ulcers improved new CVA pen allergy continue po vancomycin received iv vanco- blood cultures negative on meropenem- GNR in sputum- over 40 minutes spent in the care of this critically ill ICU patient Problem List - Problems (1) Septic shock Code(s): A41.9 - SEPSIS, UNSPECIFIED ORGANISM; R65.21 - SEVERE SEPSIS WITH SEPTIC SHOCK (2) ARF (acute renal failure) Code(s): N17.9 - ACUTE KIDNEY FAILURE, UNSPECIFIED Qualifiers: Acute renal failure type: unspecified Qualified Code(s): N17.9 - Acute kidney failure, unspecified (3) Respiratory failure Code(s): J96.90 - RESPIRATORY FAILURE, UNSP, UNSP W HYPOXIA OR HYPERCAPNIA (4) Penicillin allergy Code(s): Z88.0 - ALLERGY STATUS TO PENICILLIN
[2020-01-25] MEDS ORDERED: INSULIN (NOVOLOG) ASPART 100 UNITS/ML 10ML VIAL ONE (12:15)
[2020-01-25] MEDS: SODIUM CHLORIDE 1,000 ML IV SCH (12:24)
[2020-01-25] MEDS: PROPOFOL 1,000,000 MCG/100 ML VIAL IVPB SCH ×2 (13:00→21:00)
--- NOTE | 2020-01-25 13:32 | PN ---
Teaching Attending Note Name of Resident: Azam Barriga ATTENDING PHYSICIAN STATEMENT I saw and evaluated the patient. I reviewed the resident's note and discussed the case with the resident. I agree with the resident's findings and plan as documented. SUBJECTIVE: Pt seen and examined in the ICU. Remains intubated, sedated. Persistent hypoxia this AM, went into bradycardic cardiac arrest s/p epinephrine x 2, wide complex tachycardia post arrest now on levophed, vasopressin, dopamine, amiodarone gtts. PEEP 20, FIO2 100%. OBJECTIVE: Vital Signs Period Temp Pulse Resp BP Sys/Callahan Pulse Ox Last 24 Hr 100.0 F-101.1 F 71-114 13-25 101-135/58-82 92-100 Intake & Output 01/22/20 01/23/20 01/24/20 01/25/20 23:59 23:59 23:59 23:59 Intake Total 2213 2006.0 5955.9 2834 Output Total 4700 1700 950 Balance -2487 306.0 5005.9 2834 Weight 126.5 kg 126.5 kg 128.004 kg Gen: intubated, sedated Heart: RRR Lung: scattered rhonchi Abd: soft, nontender Ext: wrapped CBC, BMP 01/25/20 06:00 01/25/20 06:00 Active Medications Acetaminophen (Tylenol -) 650 mg PO Q6H PRN PRN Reason: FEVER Last Admin: 01/24/20 06:27 Dose: 650 mg Documented by: Amino Acids (Prosource No Carb Liquid Pkt) 30 ml PO TID LANCE Last Admin: 01/25/20 05:09 Dose: 30 ml Documented by: Atorvastatin Calcium (Lipitor -) 80 mg PO HS LANCE Last Admin: 01/24/20 21:58 Dose: 80 mg Documented by: Chlorhexidine Gluconate (Hibiclens For Decolonization -) 1 applic TP HS LANCE Last Admin: 01/24/20 21:58 Dose: 1 applic Documented by: Collagenase (Santyl -) 1 applic TP DAILY [facility]; Protocol Last Admin: 01/25/20 10:12 Dose: Not Given Documented by: Hydrocortisone Sodium Succinate (Solu-Cortef -) 100 mg IVPUSH Q8H-IV LANCE Last Admin: 01/25/20 10:12 Dose: 100 mg Documented by: Propofol (Diprivan -) 1,000,000 mcg in 100 mls @ 3.876 mls/hr IVPB TITR [facility]ANCE; Protocol Last Admin: 01/24/20 17:04 Dose: 50 mcg/kg/min, 38.76 mls/hr Documented by: Vasopressin 40 units/ Sodium (Chloride) 100 mls @ 5 mls/hr IVPB ASDIR [facility]; Protocol Last Admin: 01/24/20 09:30 Dose: 2.4 units/hr, 6 mls/hr Documented by: Meropenem 500 mg/ Dextrose 100 mls @ 200 mls/hr IVPB Q8H-IV LANCE Last Admin: 01/25/20 10:12 Dose: 200 mls/hr Documented by: Norepinephrine Bitartrate 16, (000 mcg/ Sodium Chloride) 500 mls @ 9.375 mls/hr IV TITR [facility]ANCE; Protocol Last Titration: 01/25/20 06:00 Dose: 10 mcg/min, 18.75 mls/hr Documented by: Fentanyl (Sublimaze Ivpb) 500 mcg in 100 mls @ 1 mls/hr IVPB TITR LANCE Last Admin: 01/24/20 18:04 Dose: 100 mcg/hr, 20 mls/hr Documented by: Sodium Chloride (Normal Saline -) 1,000 mls @ 100 mls/hr IV ASDIR L[facility] Last Admin: 01/25/20 12:24 Dose: 100 mls/hr Documented by: Dopamine HCl/Dextrose (Dopamine 400 Mg/D5w -) 400,000 mcg in 250 mls @ 24.001 mls/hr IVPB TITR [facility]; Protocol Last Admin: 01/25/20 09:30 Dose: 15 mcg/kg/min, 72.002 mls/hr Documented by: Insulin Aspart (Novolog Vial Sliding Scale -) 1 vial SQ ACHS [facility]; Protocol Last Admin: 01/25/20 12:23 Dose: 10 units Documented by: Insulin Detemir (Levemir Vial) 5 units SQ HS LANCE Last Admin: 01/24/20 21:59 Dose: 5 units Documented by: Metoprolol Tartrate (Lopressor Injection -) 5 mg IVPUSH Q4H PRN PRN Reason: TACHYCARDIA Last Admin: 01/23/20 16:06 Dose: 5 mg Documented by: Pantoprazole Sodium (Protonix Iv) 40 mg IVPUSH DAILY [facility] Last Admin: 01/25/20 10:12 Dose: 40 mg Documented by: Vancomycin HCl (Vancomycin Oral Solution) 250 mg PO Q6HPO [facility] Last Admin: 01/25/20 12:24 Dose: 250 mg Documented by: ASSESSMENT AND PLAN: Acute Hypoxic Respiratory Failure Cellulitis Pneumonia Septic Shock Acute on Chronic Renal Failure Atrial Fibrillation HTN DM Morbid Obesity BARRY/OHS C Diff Colitis - continue antibiotics per ID - f/u cultures - titrate pressors to maintain MAP>65 - stress dose steroids - monitor urine output, creatinine - continue amiodarone gtt - monitor lytes - titrate FiO2, PEEP to keep SpO2 >90% - wound care - sedate for vent synchrony - enteral feeds - DVT/GI prophylaxis - continue ICU monitoring critical care time spent in reviewing chart, evaluating patient and formulating plan 35 min
[2020-01-25 14:28] LABS: ARTERIAL BLD GAS O2 SATURATION 97.9 mmHg (95-98); ARTERIAL BLOOD GAS BASE EXCESS -14.4 mmol/L (-2-2); ARTERIAL BLOOD GAS PO2 134.9 mmHg (80-100); ARTERIAL BLOOD GAS pH 7.144 (7.350-7.450)
[2020-01-25 14:32] LABS: ALLENS TEST POSITIVE; VENT MODE A/C
[2020-01-25 14:33] LABS: VENT RATE 22
--- NOTE | 2020-01-25 14:43 | PN ---
Progress Note, Physician History of Present Illness: Pt seen and examined at bedside. She had a hypoxic episode where she bradied down and arrested this morning. She is now on pressors. - Current Medication List Current Medications: Active Medications Acetaminophen (Tylenol -) 650 mg PO Q6H PRN PRN Reason: FEVER Last Admin: 01/24/20 06:27 Dose: 650 mg Documented by: Amino Acids (Prosource No Carb Liquid Pkt) 30 ml PO TID LANCE Last Admin: 01/25/20 14:12 Dose: Not Given Documented by: Atorvastatin Calcium (Lipitor -) 80 mg PO HS LANCE Last Admin: 01/24/20 21:58 Dose: 80 mg Documented by: Chlorhexidine Gluconate (Hibiclens For Decolonization -) 1 applic TP HS LANCE Last Admin: 01/24/20 21:58 Dose: 1 applic Documented by: Collagenase (Santyl -) 1 applic TP DAILY [facility]; Protocol Last Admin: 01/25/20 10:12 Dose: Not Given Documented by: Hydrocortisone Sodium Succinate (Solu-Cortef -) 100 mg IVPUSH Q8H-IV LANCE Last Admin: 01/25/20 10:12 Dose: 100 mg Documented by: Propofol (Diprivan -) 1,000,000 mcg in 100 mls @ 3.876 mls/hr IVPB TITR [facility]; Protocol Last Admin: 01/24/20 17:04 Dose: 50 mcg/kg/min, 38.76 mls/hr Documented by: Vasopressin 40 units/ Sodium (Chloride) 100 mls @ 5 mls/hr IVPB ASDIR [facility]; Protocol Last Admin: 01/24/20 09:30 Dose: 2.4 units/hr, 6 mls/hr Documented by: Meropenem 500 mg/ Dextrose 100 mls @ 200 mls/hr IVPB Q8H-IV [facility]ANCE Last Admin: 01/25/20 10:12 Dose: 200 mls/hr Documented by: Norepinephrine Bitartrate 16, (000 mcg/ Sodium Chloride) 500 mls @ 9.375 mls/hr IV TITR [facility]; Protocol Last Titration: 01/25/20 06:00 Dose: 10 mcg/min, 18.75 mls/hr Documented by: Fentanyl (Sublimaze Ivpb) 500 mcg in 100 mls @ 1 mls/hr IVPB TITR LANCE Last Admin: 01/24/20 18:04 Dose: 100 mcg/hr, 20 mls/hr Documented by: Sodium Chloride (Normal Saline -) 1,000 mls @ 100 mls/hr IV ASDIR [facility] Last Admin: 01/25/20 12:24 Dose: 100 mls/hr Documented by: Dopamine HCl/Dextrose (Dopamine 400 Mg/D5w -) 400,000 mcg in 250 mls @ 24.001 mls/hr IVPB TITR [facility]; Protocol Last Admin: 01/25/20 09:30 Dose: 15 mcg/kg/min, 72.002 mls/hr Documented by: Insulin Aspart (Novolog Vial Sliding Scale -) 1 vial SQ ACHS [facility]; Protocol Last Admin: 01/25/20 12:23 Dose: 10 units Documented by: Insulin Detemir (Levemir Vial) 5 units SQ HS [facility] Last Admin: 01/24/20 21:59 Dose: 5 units Documented by: Metoprolol Tartrate (Lopressor Injection -) 5 mg IVPUSH Q4H PRN PRN Reason: TACHYCARDIA Last Admin: 01/23/20 16:06 Dose: 5 mg Documented by: Pantoprazole Sodium (Protonix Iv) 40 mg IVPUSH DAILY [facility] Last Admin: 01/25/20 10:12 Dose: 40 mg Documented by: Vancomycin HCl (Vancomycin Oral Solution) 250 mg PO Q6HPO [facility] Last Admin: 01/25/20 12:24 Dose: 250 mg Documented by: - Objective Vital Signs: Vital Signs Temperature 100.5 F H 01/25/20 06:59 Pulse Rate 86 01/25/20 09:08 Respiratory Rate 22 H 01/25/20 12:50 Blood Pressure 131/76 01/25/20 06:00 O2 Sat by Pulse Oximetry (%) 95 01/25/20 12:50 Constitutional: Yes: Calm Eyes: Yes: Conjunctiva Clear Cardiovascular: Yes: S1, S2 Respiratory: Yes: Mechanically Ventilated Gastrointestinal: Yes: Soft, Abdomen, Obese Genitourinary: Yes: Johnson Present Musculoskeletal: Yes: Muscle Weakness Edema: No Neurological: Yes: Lethargy Labs: CBC, BMP 01/25/20 06:00 01/25/20 06:00 INR, PTT INR 1.17 (0.83-1.09) H 01/15/20 06:30 Fibrinogen > 500.0 mg/dL (238-498) H 01/15/20 06:30 - ....Imaging Chest X-ray: Report Reviewed Problem List - Problems (1) NOVA (acute kidney injury) Code(s): N17.9 - ACUTE KIDNEY FAILURE, UNSPECIFIED (2) DM2 (diabetes mellitus, type 2) Code(s): E11.9 - TYPE 2 DIABETES MELLITUS WITHOUT COMPLICATIONS Qualifiers: Diabetes mellitus skilled nursing insulin use: with skilled nursing use Diabetes mellitus complication detail: with other circulatory complications (3) Hyperkalemia Code(s): E87.5 - HYPERKALEMIA (4) Metabolic acidosis Code(s): E87.2 - ACIDOSIS Assessment/Plan Current Medications Generic Name Dose Route Start Last Admin Trade Name Freq PRN Reason Stop Dose Admin Acetaminophen 650 mg 01/21/20 15:23 01/24/20 06:27 Tylenol - PO 650 mg Q6H PRN Administration FEVER Amino Acids 30 ml 01/13/20 22:00 01/25/20 14:12 Prosource No Carb Liquid Pkt PO Not Given TID LANCE Atorvastatin Calcium 80 mg 01/12/20 22:00 01/24/20 21:58 Lipitor - PO 80 mg HS LANCE Administration Chlorhexidine Gluconate 1 applic 01/10/20 22:00 01/24/20 21:58 Hibiclens For Decolonization - TP 1 applic HS LANCE Administration Collagenase 1 applic 01/11/20 14:15 01/25/20 10:12 Santyl - TP Not Given DAILY [facility] Protocol Hydrocortisone Sodium Succinate 100 mg 01/24/20 18:00 01/25/20 10:12 Solu-Cortef - IVPUSH 100 mg Q8H-IV LANCE Administration Propofol 1,000,000 mcg in 100 mls @ 3.876 mls/hr 01/20/20 14:01 01/24/20 17:04 Diprivan - IVPB 50 mcg/kg/min TITR LANCE 38.76 mls/hr Administration Protocol 5 MCG/KG/MIN Vasopressin 40 units/ Sodium 100 mls @ 5 mls/hr 01/24/20 08:00 01/24/20 09:30 Chloride IVPB 2.4 units/hr ASDIR LANCE 6 mls/hr Administration Protocol 2 UNITS/HR Meropenem 500 mg/ Dextrose 100 mls @ 200 mls/hr 01/24/20 18:00 01/25/20 10:12 IVPB 200 mls/hr Q8H-IV LANCE Administration Norepinephrine Bitartrate 16, 500 mls @ 9.375 mls/hr 01/24/20 17:00 01/25/20 06:00 000 mcg/ Sodium Chloride IV 10 mcg/min TITR LANCE 18.75 mls/hr Titration Protocol 5 MCG/MIN Fentanyl 500 mcg in 100 mls @ 1 mls/hr 01/24/20 17:00 01/24/20 18:04 Sublimaze Ivpb IVPB 100 mcg/hr TITR LANCE 20 mls/hr Administration 5 MCG/HR Sodium Chloride 1,000 mls @ 100 mls/hr 01/25/20 08:17 01/25/20 12:24 Normal Saline - IV 100 mls/hr ASDIR [facility] Administration Dopamine HCl/Dextrose 400,000 mcg in 250 mls @ 24.001 mls/hr 01/25/20 09:30 01/25/20 09:30 Dopamine 400 Mg/D5w - IVPB 15 mcg/kg/min TITR LANCE 72.002 mls/hr Administration Protocol 5 MCG/KG/MIN Insulin Aspart 1 vial 01/10/20 22:00 01/25/20 12:23 Novolog Vial Sliding Scale - SQ 10 units ACHS LANCE Administration Protocol Insulin Detemir 5 units 01/21/20 22:00 01/24/20 21:59 Levemir Vial SQ 5 units HS LANCE Administration Metoprolol Tartrate 5 mg 01/20/20 03:09 01/23/20 16:06 Lopressor Injection - IVPUSH 5 mg Q4H PRN Administration TACHYCARDIA Pantoprazole Sodium 40 mg 01/13/20 10:00 01/25/20 10:12 Protonix Iv IVPUSH 40 mg DAILY [facility] Administration Vancomycin HCl 250 mg 01/18/20 18:00 01/25/20 12:24 Vancomycin Oral Solution PO 250 mg Q6HPO LANCE Administration Impression 1. NOVA 2. hyperkalemia 3. obesity 4. DM 5. a-fib 6. HTN 7. chronic lower extremity ulcers 8. gastritis 9. sepsis 10. hyperglycemia 11. metabolic acidosis 12. peripheral vascular disease 13. acute resp failure 14. shock 15. cva 16. thrombocytopenia 17. cardiac arrest Plan - cont vent support - cont pressors - pt s/p cardiac arrest - monitor renal function - concern for atn post arrest - monitor urine output - cont wound care - abx per ID - follow cultures - avoid nsaids - avoid nephrotoxins
[2020-01-25] MEDS ORDERED: MIDAZOLAM IN 0.9 % SOD.CHLORID 1 MG/1 ML PLAST..BAG ONE ×2 (15:22→22:56)
[2020-01-25] MEDS ORDERED: AMIODARONE HCL INJECTION 450 MG in DEXTROSE 5%-WATER - 241 ML IVPB ONE (15:40)
[2020-01-25] MEDS ORDERED: VECURONIUM BROMIDE 50 MG/50 ML VIAL IVPUSH ONE (15:40)
[2020-01-25] MEDS ORDERED: AMIODARONE IN DEXTROSE,ISO-OSM 360 MG/200 ML BAG IVPB ONE (16:46)
[2020-01-25] MEDS ORDERED: VASOPRESSIN 20 UNITS/ML VIAL IV ONE (17:43)
[2020-01-25] MEDS: VASOPRESSIN 40 UNITS in SODIUM CHLORIDE 98 ML IVPB SCH (17:49)
[2020-01-25] MEDS: FENTANYL NS IVPB 500 MCG/100 ML BAG IVPB SCH ×2 (18:02→23:00)
[2020-01-25] MEDS: AMIODARONE IN DEXTROSE,ISO-OSM 360 MG/200 ML BAG IVPB SCH (19:00)
[2020-01-25] MEDS: MIDAZOLAM IN 0.9 % SOD.CHLORID 100 MG/100 ML PLAST..BAG IVPB SCH (19:00)
[2020-01-25] MEDS: CHLORHEXIDINE GLUCONATE 4% CLEANSER FOR DECOLONIZATION TP SCH (21:09)
[2020-01-25] MEDS: ATORVASTATIN CA 80 MG TABLET (FP) PO SCH (21:11)
[2020-01-25] MEDS: INSULIN (LEVEMIR) 100 UNITS/ML UNITS SQ SCH (21:16)
--- NOTE | 2020-01-25 23:54 | PN ---
Physical Exam: SUBJECTIVE: Overnight pt was febrile to 100.9F; pt was given ice packs. Patient seen and examined. During A-line insertion, pt became hypoxic to 65%, and later went into bradycardic arrest, which resolved with 2 of epinephrine. Now on amiodarone, dopamine, vasopressin, and norepi drips. OBJECTIVE: Vital Signs Period Temp Pulse Resp BP Sys/Callahan Pulse Ox Last 24 Hr 100.5 F-100.9 F 45-127 20-38 58-163/35-92 30-100 GENERAL: intubated and sedated HEENT: Normal with no signs of trauma. PERRL, intubated NECK: R IJ LUNGS: Breath sounds equal, clear to auscultation bilaterally, no wheezes, no crackles, no accessory muscle use. HEART: iregularly irregular, S1, S2 without murmur, rub or gallop. ABDOMEN: obese abdomen. Soft, nontender, normoactive bowel sounds, no guarding, no rebound EXTREMITIES: 2+ pulses, warm, well-perfused, 2+ edema LE SKIN: venous stasis changes b/l LE. ulcers b/l LE. Laboratory Results - last 24 hr 01/25/20 01/25/20 01/25/20 04:54 06:00 06:00 WBC 37.9 H* RBC 2.75 L Hgb 7.5 L Hct 24.2 L MCV 88.2 MCH 27.2 MCHC 30.8 L RDW 15.2 Plt Count 433 MPV 10.7 Absolute Neuts (auto) 36.7 H Neutrophils % 96.7 H Neutrophils % (Manual) 94.0 H Band Neutrophils % 2.0 Lymphocytes % 1.4 L D Lymphocytes % (Manual) 2.0 L D Monocytes % 1.7 L Monocytes % (Manual) 1 L Eosinophils % 0.0 D Eosinophils % (Manual) 0.0 Basophils % 0.2 Basophils % (Manual) 0.0 Myelocytes % (Man) 1 D Promyelocytes % (Man) 0 Blast Cells % (Manual) 0 Nucleated RBC % 0 Metamyelocytes 0 Hypochromia 0 Platelet Estimate Normal Polychromasia 0 Poikilocytosis 0 Anisocytosis 1+ Microcytosis 1+ Macrocytosis 1+ Ovalocytes 1+ Anticoagulation Therapy Puncture Site Patient Temperature ABG pH ABG pCO2 ABG pO2 ABG HCO3 ABG O2 Sat (Measured) ABG O2 Content ABG Base Excess Kwesi Test Patient On Oxygen O2 Delivery Device Oxygen Flow Rate Vent Mode Vent Rate Mechanical Rate PEEP Pressure Support Vent Sodium 134 L Potassium 5.1 Chloride 103 Carbon Dioxide 18 L Anion Gap 13 BUN 84.9 H Creatinine 3.0 H Est GFR (CKD-EPI)AfAm 19.32 Est GFR (CKD-EPI)NonAf 16.67 POC Glucometer 329 Random Glucose 344 H Serum Osmolality 329 H Calcium 8.2 L Phosphorus 8.8 H Magnesium 1.9 Total Bilirubin 0.6 AST 20 ALT 21 Alkaline Phosphatase 119 H Total Protein 7.2 Albumin 1.6 L Ur Random Creatinine Ur Random Sodium 01/25/20 01/25/20 01/25/20 06:00 11:41 13:46 WBC RBC Hgb Hct MCV MCH MCHC RDW Plt Count MPV Absolute Neuts (auto) Neutrophils % Neutrophils % (Manual) Band Neutrophils % Lymphocytes % Lymphocytes % (Manual) Monocytes % Monocytes % (Manual) Eosinophils % Eosinophils % (Manual) Basophils % Basophils % (Manual) Myelocytes % (Man) Promyelocytes % (Man) Blast Cells % (Manual) Nucleated RBC % Metamyelocytes Hypochromia Platelet Estimate Polychromasia Poikilocytosis Anisocytosis Microcytosis Macrocytosis Ovalocytes Anticoagulation Therapy No Result Required. Puncture Site Arterial line Patient Temperature No Result Required. ABG pH 7.144 L* ABG pCO2 40.40 ABG pO2 134.9 H ABG HCO3 13.6 L ABG O2 Sat (Measured) 97.9 ABG O2 Content No Result Required. ABG Base Excess -14.4 L Kwesi Test Positive Patient On Oxygen Yes O2 Delivery Device Mec vent Oxygen Flow Rate 100 Vent Mode A/c Vent Rate 22 Mechanical Rate Vent' PEEP 12.0 Pressure Support Vent 500 Sodium Potassium Chloride Carbon Dioxide Anion Gap BUN Creatinine Est GFR (CKD-EPI)AfAm Est GFR (CKD-EPI)NonAf POC Glucometer 376 Random Glucose Serum Osmolality Calcium Phosphorus Magnesium Total Bilirubin AST ALT Alkaline Phosphatase Total Protein Albumin Ur Random Creatinine 68.0 Ur Random Sodium < 18 L 01/25/20 01/25/20 17:02 21:14 WBC RBC Hgb Hct MCV MCH MCHC RDW Plt Count MPV Absolute Neuts (auto) Neutrophils % Neutrophils % (Manual) Band Neutrophils % Lymphocytes % Lymphocytes % (Manual) Monocytes % Monocytes % (Manual) Eosinophils % Eosinophils % (Manual) Basophils % Basophils % (Manual) Myelocytes % (Man) Promyelocytes % (Man) Blast Cells % (Manual) Nucleated RBC % Metamyelocytes Hypochromia Platelet Estimate Polychromasia Poikilocytosis Anisocytosis Microcytosis Macrocytosis Ovalocytes Anticoagulation Therapy Puncture Site Patient Temperature ABG pH ABG pCO2 ABG pO2 ABG HCO3 ABG O2 Sat (Measured) ABG O2 Content ABG Base Excess Kwesi Test Patient On Oxygen O2 Delivery Device Oxygen Flow Rate Vent Mode Vent Rate Mechanical Rate PEEP Pressure Support Vent Sodium Potassium Chloride Carbon Dioxide Anion Gap BUN Creatinine Est GFR (CKD-EPI)AfAm Est GFR (CKD-EPI)NonAf POC Glucometer 378 389 Random Glucose Serum Osmolality Calcium Phosphorus Magnesium Total Bilirubin AST ALT Alkaline Phosphatase Total Protein Albumin Ur Random Creatinine Ur Random Sodium Active Medications Generic Name Dose Route Start Last Admin Trade Name Freq PRN Reason Stop Dose Admin Acetaminophen 650 mg 01/21/20 15:23 01/24/20 06:27 Tylenol - PO 650 mg Q6H PRN Administration FEVER Amino Acids 30 ml 01/13/20 22:00 01/25/20 21:11 Prosource No Carb Liquid Pkt PO 30 ml TID LANCE Administration Atorvastatin Calcium 80 mg 01/12/20 22:00 01/25/20 21:11 Lipitor - PO 80 mg HS LANCE Administration Chlorhexidine Gluconate 1 applic 01/10/20 22:00 01/25/20 21:09 Hibiclens For Decolonization - TP 1 applic HS LANCE Administration Collagenase 1 applic 01/11/20 14:15 01/25/20 10:12 Santyl - TP Not Given DAILY [facility] Protocol Hydrocortisone Sodium Succinate 100 mg 01/24/20 18:00 01/25/20 18:02 Solu-Cortef - IVPUSH 100 mg Q8H-IV [facility]ANCE Administration Propofol 1,000,000 mcg in 100 mls @ 3.876 mls/hr 01/20/20 14:01 01/25/20 21:00 Diprivan - IVPB 50 mcg/kg/min TITR LANCE 38.76 mls/hr Administration Protocol 5 MCG/KG/MIN Vasopressin 40 units/ Sodium 100 mls @ 5 mls/hr 01/24/20 08:00 01/25/20 17:49 Chloride IVPB 2.4 units/hr ASDIR LANCE 6 mls/hr Administration Protocol 2 UNITS/HR Meropenem 500 mg/ Dextrose 100 mls @ 200 mls/hr 01/24/20 18:00 01/25/20 18:11 IVPB 200 mls/hr Q8H-IV [facility]ANCE Administration Norepinephrine Bitartrate 16, 500 mls @ 9.375 mls/hr 01/24/20 17:00 01/25/20 10:50 000 mcg/ Sodium Chloride IV 20 mcg/min TITR LANCE 37.5 mls/hr Administration Protocol 5 MCG/MIN Fentanyl 500 mcg in 100 mls @ 1 mls/hr 01/24/20 17:00 01/25/20 18:02 Sublimaze Ivpb IVPB 100 mcg/hr TITR LANCE 20 mls/hr Administration 5 MCG/HR Sodium Chloride 1,000 mls @ 100 mls/hr 01/25/20 08:17 01/25/20 12:24 Normal Saline - IV 100 mls/hr ASDIR LANCE Administration Dopamine HCl/Dextrose 400,000 mcg in 250 mls @ 24.001 mls/hr 01/25/20 09:30 01/25/20 20:15 Dopamine 400 Mg/D5w - IVPB 12 mcg/kg/min TITR LANCE 57.602 mls/hr Administration Protocol 5 MCG/KG/MIN Insulin Aspart 1 vial 01/10/20 22:00 01/25/20 21:17 Novolog Vial Sliding Scale - SQ 10 units ACHS LANCE Administration Protocol Insulin Detemir 5 units 01/21/20 22:00 01/25/20 21:16 Levemir Vial SQ 5 units HS LANCE Administration Metoprolol Tartrate 5 mg 01/20/20 03:09 01/23/20 16:06 Lopressor Injection - IVPUSH 5 mg Q4H PRN Administration TACHYCARDIA Pantoprazole Sodium 40 mg 01/13/20 10:00 01/25/20 10:12 Protonix Iv IVPUSH 40 mg DAILY [facility] Administration Vancomycin HCl 250 mg 01/18/20 18:00 01/25/20 18:02 Vancomycin Oral Solution PO 250 mg Q6HPO LANCE Administration ASSESSMENT/PLAN: 54 YO F PMH DM, CKD, afib, and chronic LE ulcers presents s/p fall and complained of generalized weakness. Admitted to ICU for acute hypoxic respiratory failure with likely septic shock 2/2 PNA and cellulitis Neuro #Acute Metabolic Encephalopathy 2/2 Infection -Intubated and sedated -Daily weaning trials; assess mental status -CTH: (01/13) moderate acute/subacute R parietal cortical infarct containing 0.5 X0.3 cm focus of acute blood medially -CTH (01/21): Evolving R parietal acute/subacute infarct again seen w/ interval minimal increase tiny foci of hemorrhagic transformation; no shift of midline structures Pulm #Acute Hypoxic Respiratory Failure -Intubated; vent settings: PEEP 15, TV 500, Rate 26, FIO2 100% -Continue to keep SpO2 >90% -Start Hydrocortisone 100 mg Q8H -ABG: pH 7.14, O2 134, HCO3 13.6 CV #Septic Shock #Atrial Fibrillation #HTN #Chronic Diastolic CHF -Currently rate-controlled -Maintain MAP >65 -pt went into bradycardic arrest, which resolved with 2 of epinephrine. Now on amiodarone, dopamine, vasopressin, and norepi drips. -Atorvastatin 80, Lopressor 5 mg IVP PRN ID #Pneumonia #C. Diff Infection -leukocytosis improved from 46 to 37.9. Tmax 101.1 F. -c/w PO vanc 250 mg Q6H (started 01/17) and IV mereopenem (started 01/23); (previously on Levofloxacin, started 01/21) -gram stain sputum culture: lactose fermenting neg bacilli -urine culture (faith). lactose fermenting neg bacilli. Await sensitivities -ofirmev PRN for fever -blood culture neg X3 (01/22) -CXR: b/l pulmonary pleural changes diminished on L, but INCREASED on R. Fluid w/ atlectasis or infiltrates. Renal #Acute on Chronic Renal Failure -Worsened today. BUN/Cr increased 84.9/3 -5955.9 I's. 950 O's. 5005.9 Balance -continue holding lasix for worsening renal status -continue monitoring I's and O's. -renal consult appreciated. concern for ATN s/p bradycardic cardiac arrest. avoid NSAIDs, nephrotoxic agents Endo #DM -Levemir 5U HS -BGM/ISS ACHS FEN -no IVf -monitor lytes -Tube Feed Nepro @30 ml/hr Prophylaxis DVT: On home Eliquis 5 BID GI: Protonix 40 IV QD Lines Intubated: 01/10 Johnson: 01/09 RIJ: 01/18/2020 L axillary A line (01/24) Dispo -maintain ICU ATTENDING PHYSICIAN STATEMENT I saw and evaluated the patient. I reviewed the resident's note and discussed the case with the resident. I agree with the resident's findings and plan as documented. SUBJECTIVE: OBJECTIVE: ASSESSMENT AND PLAN:
[2020-01-26] MEDS ORDERED: MIDAZOLAM 100 MG in SODIUM CHLORIDE 100 ML IVPB SCH (01:00)
[2020-01-26] MEDS ORDERED: MEROPENEM 500 MG VIAL (RESTRICTED TO ID) IVPB ONE ×3 (01:01→17:29)
[2020-01-26] MEDS ORDERED: DEXTROSE 5%-WATER 100 ML IVPB ONE ×3 (01:01→17:29)
[2020-01-26] MEDS: MEROPENEM 500 MG in DEXTROSE 5%-WATER 100 ML IVPB SCH ×3 (01:05→18:19)
[2020-01-26] MEDS: VANCOMYCIN 250 MG/5 ML ORAL SOLUTION PO SCH ×4 (01:13→18:19)
[2020-01-26] MEDS: HYDROCORTISONE SOD SUCCINATE 100 MG/2 ML VIAL IVPUSH SCH ×3 (02:12→18:19)
[2020-01-26] MEDS: AMIODARONE IN DEXTROSE,ISO-OSM 360 MG/200 ML BAG IVPB SCH ×2 (02:13→10:40)
[2020-01-26] MEDS: MIDAZOLAM IN 0.9 % SOD.CHLORID 100 MG/100 ML PLAST..BAG IVPB SCH ×2 (03:00→10:39)
[2020-01-26] MEDS: ACETAMINOPHEN 325 MG TABLET (FP) PO PRN ×2 (05:00→23:07)
[2020-01-26 06:09] LABS: ARTERIAL BLD GAS O2 SATURATION 97.8 mmHg (95-98); ARTERIAL BLOOD GAS BASE EXCESS -15.2 mmol/L (-2-2); ARTERIAL BLOOD GAS PO2 136.1 mmHg (80-100)
[2020-01-26] MEDS: INSULIN SLIDING SCALE (NOVOLOG) 1 VIAL SQ SCH ×4 (06:15→21:29)
[2020-01-26] MEDS: AMINO ACIDS/PROTEIN HYDROLYS 30 ML LIQUID.PKT PO SCH ×3 (06:17→21:17)
[2020-01-26 06:38] LABS: ARTERIAL BLOOD GAS pH 7.126 (7.350-7.450); VENT MODE A/C
[2020-01-26 06:39] LABS: VENT RATE 22
[2020-01-26] MEDS ORDERED: SODIUM BICARBONATE 4.2% 5 MEQ/10 ML DISP.SYRIN IVPUSH ONE (06:44)
[2020-01-26] MEDS ORDERED: SODIUM BICARBONATE 8.4% - 50 ML ONE (06:53)
[2020-01-26] MEDS ORDERED: SODIUM BICARBONATE 8.4% 50 MEQ/50 ML VIAL ONE (06:53)
[2020-01-26] MEDS ORDERED: SODIUM BICARBONATE 8.4% 50 MEQ/50 ML VIAL IVPUSH ONE (07:00)
--- NOTE | 2020-01-26 07:16 | PN ---
Progress Note, Physician Chief Complaint: STILL ON VENT SUPPORT 100% FIO2 AND STILL ON BP SUPPORT LEVOPHED - Current Medication List Current Medications: Active Medications Acetaminophen (Tylenol -) 650 mg PO Q6H PRN PRN Reason: FEVER Last Admin: 01/26/20 05:00 Dose: 650 mg Documented by: Amino Acids (Prosource No Carb Liquid Pkt) 30 ml PO TID LANCE Last Admin: 01/26/20 06:17 Dose: 30 ml Documented by: Atorvastatin Calcium (Lipitor -) 80 mg PO HS LANCE Last Admin: 01/25/20 21:11 Dose: 80 mg Documented by: Chlorhexidine Gluconate (Hibiclens For Decolonization -) 1 applic TP HS LANCE Last Admin: 01/25/20 21:09 Dose: 1 applic Documented by: Collagenase (Santyl -) 1 applic TP DAILY [facility]; Protocol Last Admin: 01/25/20 10:12 Dose: Not Given Documented by: Hydrocortisone Sodium Succinate (Solu-Cortef -) 100 mg IVPUSH Q8H-IV LANCE Last Admin: 01/26/20 02:12 Dose: 100 mg Documented by: Propofol (Diprivan -) 1,000,000 mcg in 100 mls @ 3.876 mls/hr IVPB TITR [facility]; Protocol Last Admin: 01/25/20 21:00 Dose: 50 mcg/kg/min, 38.76 mls/hr Documented by: Vasopressin 40 units/ Sodium (Chloride) 100 mls @ 5 mls/hr IVPB ASDIR [facility]; Protocol Last Admin: 01/25/20 17:49 Dose: 2.4 units/hr, 6 mls/hr Documented by: Meropenem 500 mg/ Dextrose 100 mls @ 200 mls/hr IVPB Q8H-IV LANCE Last Admin: 01/26/20 01:05 Dose: 200 mls/hr Documented by: Norepinephrine Bitartrate 16, (000 mcg/ Sodium Chloride) 500 mls @ 9.375 mls/hr IV TITR LANCE; Protocol Last Admin: 01/26/20 00:00 Dose: 15 mcg/min, 28.125 mls/hr Documented by: Fentanyl (Sublimaze Ivpb) 500 mcg in 100 mls @ 1 mls/hr IVPB TITR LANCE Last Admin: 01/25/20 23:00 Dose: 100 mcg/hr, 20 mls/hr Documented by: Sodium Chloride (Normal Saline -) 1,000 mls @ 100 mls/hr IV ASDIR [facility] Last Admin: 01/25/20 12:24 Dose: 100 mls/hr Documented by: Dopamine HCl/Dextrose (Dopamine 400 Mg/D5w -) 400,000 mcg in 250 mls @ 24.001 mls/hr IVPB TITR [facility]; Protocol Last Admin: 01/26/20 00:00 Dose: 9 mcg/kg/min, 43.201 mls/hr Documented by: Amiodarone HCl/Dextrose (Nexterone 360 Mg/200 Ml Bag) 360 mg in 200 mls @ 16.667 mls/hr IVPB ASDIR [facility] Last Admin: 01/26/20 02:13 Dose: Not Given Documented by: Midazolam HCl (Midazolam 100mg/100ml-0.9%Nacl) 100 mg in 100 mls @ 1 mls/hr IVPB TITR [facility]; Protocol Last Admin: 01/26/20 03:00 Dose: 10 mg/hr, 10 mls/hr Documented by: Insulin Aspart (Novolog Vial Sliding Scale -) 1 vial SQ ACHS [facility]; Protocol Last Admin: 01/26/20 06:15 Dose: 10 units Documented by: Insulin Detemir (Levemir Vial) 5 units SQ HS [facility] Last Admin: 01/25/20 21:16 Dose: 5 units Documented by: Metoprolol Tartrate (Lopressor Injection -) 5 mg IVPUSH Q4H PRN PRN Reason: TACHYCARDIA Last Admin: 01/23/20 16:06 Dose: 5 mg Documented by: Pantoprazole Sodium (Protonix Iv) 40 mg IVPUSH DAILY [facility] Last Admin: 01/25/20 10:12 Dose: 40 mg Documented by: Vancomycin HCl (Vancomycin Oral Solution) 250 mg PO Q6HPO [facility] Last Admin: 01/26/20 06:11 Dose: 250 mg Documented by: - Objective Vital Signs: Vital Signs Temperature 101.5 F H 01/26/20 06:00 Pulse Rate 107 H 01/26/20 06:00 Respiratory Rate 22 H 01/26/20 06:00 Blood Pressure 117/68 01/26/20 06:00 O2 Sat by Pulse Oximetry (%) 100 01/26/20 06:00 Constitutional: Yes: Severe Distress Cardiovascular: Yes: Pulse Irregular Respiratory: Yes: Diminished, Mechanically Ventilated Gastrointestinal: Yes: Soft, Abdomen, Obese, Distention ...Rectal Exam: Yes: Other (RECTAL TUBE) Genitourinary: Yes: Johnson Present Extremities: Yes: Erythema Integumentary: Yes: Pressure Ulcer, Rash, Venous Stasis Changes Wound/Incision: Yes: Dressing Dry and Intact, Excoriated Labs: INR, PTT INR 1.17 (0.83-1.09) H 01/15/20 06:30 Fibrinogen > 500.0 mg/dL (238-498) H 01/15/20 06:30 Problem List - Problems (1) ARF (acute renal failure) Code(s): N17.9 - ACUTE KIDNEY FAILURE, UNSPECIFIED Qualifiers: Acute renal failure type: unspecified Qualified Code(s): N17.9 - Acute kidney failure, unspecified (2) CVA (cerebral vascular accident) Code(s): I63.9 - CEREBRAL INFARCTION, UNSPECIFIED (3) Diabetic calf ulcer Code(s): E11.622 - TYPE 2 DIABETES MELLITUS WITH OTHER SKIN ULCER; L97.209 - NON -PRESSURE CHRONIC ULCER OF UNSP CALF WITH UNSP SEVERITY (4) Hyperkalemia Code(s): E87.5 - HYPERKALEMIA (5) Respiratory failure Code(s): J96.90 - RESPIRATORY FAILURE, UNSP, UNSP W HYPOXIA OR HYPERCAPNIA (6) Septic shock Code(s): A41.9 - SEPSIS, UNSPECIFIED ORGANISM; R65.21 - SEVERE SEPSIS WITH SEPTIC SHOCK (7) NOVA (acute kidney injury) Code(s): N17.9 - ACUTE KIDNEY FAILURE, UNSPECIFIED (8) Abdominal lymphadenopathy Code(s): R59.0 - LOCALIZED ENLARGED LYMPH NODES (9) Afib Code(s): I48.91 - UNSPECIFIED ATRIAL FIBRILLATION Qualifiers: Atrial fibrillation type: paroxysmal Qualified Code(s): I48.0 - Paroxysmal atrial fibrillation (10) Bilateral leg ulcer Code(s): L97.919 - NON-PRS CHRONIC ULC UNSP PRT OF R LOW LEG W UNSP SEVERITY; L97.929 - NON-PRS CHRONIC ULC UNSP PRT OF L LOW LEG W UNSP SEVERITY Qualifiers: Non-pressure ulcer stage: limited to breakdown of skin Qualified Code(s): L97.911 - Non-pressure chronic ulcer of unspecified part of right lower leg limited to breakdown of skin; L97.921 - Non-pressure chronic ulcer of unspecified part of left lower leg limited to breakdown of skin (11) Chronic cellulitis Code(s): L03.90 - CELLULITIS, UNSPECIFIED (12) Severe sepsis Code(s): A41.9 - SEPSIS, UNSPECIFIED ORGANISM; R65.20 - SEVERE SEPSIS WITHOUT SEPTIC SHOCK Assessment/Plan IV ABX PER ID ON MULTIPLE ANTIBIOTICS RESISTANT BLOOD AND URINE CULTURES WITH SOME SENSITIVE ORGANISMS. INTUBATED WITH UNSTABLE BP HYPOTENSIVE ON PRESSURE SUPPORT SEPSIS/HYPOTENSION/SHOCK WORSENING RENAL FUNCTION NEPHROLOGY EVAL AND F/U GOALS OF CARE NEED TO REVIEWED HOWEVER HER NEXT OF KIN IS HER BROTHER WHO IN THE PAST HAS NOT BEEN RELIABLE TO MEET TO DISCUSS CASE. WILL REACHOUT TOMORROW
[2020-01-26 07:31] LABS: BASO % 0.1 % (0-2.0); HEMATOCRIT 23.7 % (32.4-45.2); HEMOGLOBIN 7.7 GM/dL (10.7-15.3); LYMPH % 2.4 % (8-40); MCH 28.6 pg (25.7-33.7); MCHC 32.5 g/dl (32.0-36.0); MEAN CELL VOLUME 87.9 fl (80-96); MEAN PLT VOLUME 11.1 fl (7.5-11.1); MONO % 3.5 % (3.8-10.2); PLATELET COUNT 398 K/MM3 (134-434); RBC 2.69 M/mm3 (3.60-5.2); RDW 15.4 % (11.6-15.6); WHITE BLOOD COUNT 29.4 K/mm3 (4.0-10.0)
[2020-01-26] MEDS ORDERED: DOPAMINE 400 MG/D5W - 400,000 MCG/250 ML INFUS.BAG IVPB ONE (07:41)
[2020-01-26 07:44] LABS: ALBUMIN 1.6 g/dl (3.4-5.0); BILIRUBIN,TOTAL 0.6 mg/dL (0.2-1); BLOOD UREA NITROGEN 99.7 mg/dL (7-18); CALCIUM 7.5 mg/dL (8.5-10.1); CREATININE 4.5 mg/dL (0.55-1.3); MAGNESIUM 1.9 mg/dL (1.8-2.4)
[2020-01-26 08:29] LABS: PHOSPHOROUS 8.9 mg/dL (2.5-4.9)
[2020-01-26] MEDS: VASOPRESSIN 40 UNITS in SODIUM CHLORIDE 98 ML IVPB SCH ×2 (08:34→13:50)
[2020-01-26] MEDS: SODIUM CHLORIDE 1,000 ML IV SCH (08:35)
[2020-01-26] MEDS ORDERED: PT OWN MED DRAWER 7, Y5N ONE (08:55)
[2020-01-26] MEDS ORDERED: INSULIN (NOVOLOG) ASPART 100 UNITS/ML 10ML VIAL ONE (08:56)
[2020-01-26] MEDS: DOPAMINE 400 MG/D5W - 400,000 MCG/250 ML INFUS.BAG IVPB SCH ×2 (09:36)
[2020-01-26] MEDS: PROPOFOL 1,000,000 MCG/100 ML VIAL IVPB SCH ×4 (09:39→18:20)
[2020-01-26] MEDS: FENTANYL NS IVPB 500 MCG/100 ML BAG IVPB SCH ×3 (09:39→18:19)
[2020-01-26 10:30] LABS: ANISOCYTOSIS 2+; MACROCYTOSIS 0; PLATELET ESTIMATE NORMAL
[2020-01-26] MEDS: PANTOPRAZOLE SODIUM 40 MG VIAL IVPUSH SCH (10:37)
[2020-01-26] MEDS: COLLAGENASE CLOSTRIDIUM HIST. 30 GRAMS TUBE TP SCH (10:38)
--- NOTE | 2020-01-26 12:18 | PN ---
Teaching Attending Note Name of Resident: Azam Barriga ATTENDING PHYSICIAN STATEMENT I saw and evaluated the patient. I reviewed the resident's note and discussed the case with the resident. I agree with the resident's findings and plan as documented. SUBJECTIVE: Pt seen and examined in the ICU. Remains intubated, sedated. On levophed, vasopr essin, dopamine, amiodarone gtts. PEEP 15, FIO2 100%. OBJECTIVE: Vital Signs Period Temp Pulse Resp BP Sys/Callahan Pulse Ox Last 24 Hr 100.2 F-103.5 F 98-125 6-38 96-163/51-92 95-100 Intake & Output 01/23/20 01/24/20 01/25/20 01/26/20 23:59 23:59 23:59 23:59 Intake Total 2006.0 5955.9 7510 1987 Output Total 1700 950 200 50 Balance 306.0 5005.9 7310 1938 Weight 126.5 kg 128.004 kg 133.7 kg Gen: intubated, sedated Heart: RRR Lung: scattered rhonchi Abd: soft, nontender Ext: wrapped, left arm purulent ulcer CBC, BMP 01/26/20 06:00 01/26/20 06:00 Active Medications Acetaminophen (Tylenol -) 650 mg PO Q6H PRN PRN Reason: FEVER Last Admin: 01/26/20 05:00 Dose: 650 mg Documented by: Amino Acids (Prosource No Carb Liquid Pkt) 30 ml PO TID LANCE Last Admin: 01/26/20 06:17 Dose: 30 ml Documented by: Atorvastatin Calcium (Lipitor -) 80 mg PO HS LANCE Last Admin: 01/25/20 21:11 Dose: 80 mg Documented by: Chlorhexidine Gluconate (Hibiclens For Decolonization -) 1 applic TP HS LANCE Last Admin: 01/25/20 21:09 Dose: 1 applic Documented by: Collagenase (Santyl -) 1 applic TP DAILY [facility]; Protocol Last Admin: 01/26/20 10:38 Dose: 1 applic Documented by: Hydrocortisone Sodium Succinate (Solu-Cortef -) 100 mg IVPUSH Q8H-IV LANCE Last Admin: 01/26/20 10:37 Dose: 100 mg Documented by: Propofol (Diprivan -) 1,000,000 mcg in 100 mls @ 3.876 mls/hr IVPB TITR [facility]; Protocol Last Admin: 01/26/20 09:39 Dose: 50 mcg/kg/min, 38.76 mls/hr Documented by: Vasopressin 40 units/ Sodium (Chloride) 100 mls @ 5 mls/hr IVPB ASDIR [facility]; Protocol Last Admin: 01/26/20 08:34 Dose: Not Given Documented by: Meropenem 500 mg/ Dextrose 100 mls @ 200 mls/hr IVPB Q8H-IV [facility]ANCE Last Admin: 01/26/20 10:36 Dose: 200 mls/hr Documented by: Norepinephrine Bitartrate 16, (000 mcg/ Sodium Chloride) 500 mls @ 9.375 mls/hr IV TITR [facility]; Protocol Last Admin: 01/26/20 00:00 Dose: 15 mcg/min, 28.125 mls/hr Documented by: Fentanyl (Sublimaze Ivpb) 500 mcg in 100 mls @ 1 mls/hr IVPB TITR LANCE Last Admin: 01/26/20 09:39 Dose: 100 mcg/hr, 20 mls/hr Documented by: Dopamine HCl/Dextrose (Dopamine 400 Mg/D5w -) 400,000 mcg in 250 mls @ 24.001 mls/hr IVPB TITR [facility]; Protocol Last Titration: 01/26/20 10:41 Dose: 5 mcg/kg/min, 24.001 mls/hr Documented by: Amiodarone HCl/Dextrose (Nexterone 360 Mg/200 Ml Bag) 360 mg in 200 mls @ 16.667 mls/hr IVPB ASDIR [facility] Last Admin: 01/26/20 10:40 Dose: 0.5 mg/min, 16.667 mls/hr Documented by: Midazolam HCl (Midazolam 100mg/100ml-0.9%Nacl) 100 mg in 100 mls @ 1 mls/hr IVPB TITR [facility]; Protocol Last Admin: 01/26/20 10:39 Dose: 10 mg/hr, 10 mls/hr Documented by: Insulin Aspart (Novolog Vial Sliding Scale -) 1 vial SQ ACHS [facility]; Protocol Last Admin: 01/26/20 06:15 Dose: 10 units Documented by: Insulin Detemir (Levemir Vial) 5 units SQ HS [facility] Last Admin: 01/25/20 21:16 Dose: 5 units Documented by: Metoprolol Tartrate (Lopressor Injection -) 5 mg IVPUSH Q4H PRN PRN Reason: TACHYCARDIA Last Admin: 01/23/20 16:06 Dose: 5 mg Documented by: Pantoprazole Sodium (Protonix Iv) 40 mg IVPUSH DAILY [facility] Last Admin: 01/26/20 10:37 Dose: 40 mg Documented by: Vancomycin HCl (Vancomycin Oral Solution) 250 mg PO Q6HPO [facility] Last Admin: 01/26/20 06:11 Dose: 250 mg Documented by: ASSESSMENT AND PLAN: Acute Hypoxic Respiratory Failure Cellulitis Pneumonia Septic Shock Acute on Chronic Renal Failure Atrial Fibrillation HTN DM Morbid Obesity BARRY/OHS C Diff Colitis - continue antibiotics per ID - f/u cultures - send wound cultures - surgery eval - titrate pressors to maintain MAP>65 - stress dose steroids - monitor urine output, creatinine - complete amiodarone gtt - monitor lytes - titrate FiO2, PEEP to keep SpO2 >90% - wound care - sedate for vent synchrony - enteral feeds - DVT/GI prophylaxis - continue ICU monitoring critical care time spent in reviewing chart, evaluating patient and formulating plan 35 min
[2020-01-26] MEDS: INSULIN (LEVEMIR) 100 UNITS/ML UNITS SQ SCH ×2 (13:52→21:17)
--- NOTE | 2020-01-26 13:56 | PN ---
Physical Exam: SUBJECTIVE: Patient seen and examined. Given Tylenol for 101.5F. Urine output low at 150 cc/hr. ABG showed patient was acidotic, so overnight team gave bicarb. Pt was on amiodarone, dopamine, vasopressin, and norepi drips in AM. Amiodarone was dc after amiodarone was finished today. OBJECTIVE: Vital Signs Period Temp Pulse Resp BP Sys/Callahan Pulse Ox Last 24 Hr 100.2 F-103.5 F 98-125 6-38 93-163/50-92 95-100 GENERAL: intubated and sedated HEENT: Normal with no signs of trauma. PERRL, intubated NECK: R IJ LUNGS: Breath sounds equal, clear to auscultation bilaterally, no wheezes, no crackles, no accessory muscle use. HEART: iregularly irregular, S1, S2 without murmur, rub or gallop. ABDOMEN: obese abdomen. Soft, nontender, normoactive bowel sounds, no guarding, no rebound EXTREMITIES: 2+ pulses, warm, well-perfused, 2+ edema LE SKIN: venous stasis changes b/l LE. ulcers b/l LE. Laboratory Results - last 24 hr 01/25/20 01/25/20 01/25/20 13:46 17:02 21:14 WBC RBC Hgb Hct MCV MCH MCHC RDW Plt Count MPV Absolute Neuts (auto) Neutrophils % Neutrophils % (Manual) Band Neutrophils % Lymphocytes % Lymphocytes % (Manual) Monocytes % Monocytes % (Manual) Eosinophils % Eosinophils % (Manual) Basophils % Basophils % (Manual) Myelocytes % (Man) Promyelocytes % (Man) Blast Cells % (Manual) Nucleated RBC % Metamyelocytes Hypochromia Platelet Estimate Polychromasia Poikilocytosis Anisocytosis Microcytosis Macrocytosis Anticoagulation Therapy No Result Required. Puncture Site Arterial line Patient Temperature No Result Required. ABG pH 7.144 L* ABG pCO2 40.40 ABG pO2 134.9 H ABG HCO3 13.6 L ABG O2 Sat (Measured) 97.9 ABG O2 Content No Result Required. ABG Base Excess -14.4 L Kwesi Test Positive Patient On Oxygen Yes O2 Delivery Device Mec vent Oxygen Flow Rate 100 Vent Mode A/c Vent Rate 22 Mechanical Rate Vent' PEEP 12.0 Pressure Support Vent 500 Sodium Potassium Chloride Carbon Dioxide Anion Gap BUN Creatinine Est GFR (CKD-EPI)AfAm Est GFR (CKD-EPI)NonAf POC Glucometer 378 389 Random Glucose Calcium Phosphorus Magnesium Total Bilirubin AST ALT Alkaline Phosphatase Total Protein Albumin 01/26/20 01/26/20 01/26/20 05:55 06:00 06:00 WBC 29.4 H RBC 2.69 L Hgb 7.7 L Hct 23.7 L MCV 87.9 MCH 28.6 MCHC 32.5 RDW 15.4 Plt Count 398 MPV 11.1 Absolute Neuts (auto) 27.6 H Neutrophils % 94.0 H Neutrophils % (Manual) 93.6 H Band Neutrophils % 3.2 Lymphocytes % 2.4 L D Lymphocytes % (Manual) 3.2 L D Monocytes % 3.5 L D Monocytes % (Manual) 0 L D Eosinophils % 0.0 Eosinophils % (Manual) 0.0 Basophils % 0.1 Basophils % (Manual) 0.0 Myelocytes % (Man) 0 D Promyelocytes % (Man) 0 Blast Cells % (Manual) 0 Nucleated RBC % 0 Metamyelocytes 0 Hypochromia 0 Platelet Estimate Normal Polychromasia 1+ Poikilocytosis 0 Anisocytosis 2+ Microcytosis 2+ Macrocytosis 0 Anticoagulation Therapy No Result Required. Puncture Site Arterial line Patient Temperature No Result Required. ABG pH 7.126 L* ABG pCO2 40.10 ABG pO2 136.1 H ABG HCO3 12.9 L ABG O2 Sat (Measured) 97.8 ABG O2 Content No Result Required. ABG Base Excess -15.2 L Kwesi Test Not applicable Patient On Oxygen Yes O2 Delivery Device Vent Oxygen Flow Rate 100 Vent Mode A/c Vent Rate 22 Mechanical Rate Yes PEEP 15.0 Pressure Support Vent 500 Sodium 128 L Potassium 5.0 Chloride 96 L Carbon Dioxide 14 L Anion Gap 18 H BUN 99.7 H Creatinine 4.5 H Est GFR (CKD-EPI)AfAm 11.84 Est GFR (CKD-EPI)NonAf 10.21 POC Glucometer Random Glucose 387 H Calcium 7.5 L Phosphorus 8.9 H Magnesium 1.9 Total Bilirubin 0.6 AST 37 ALT 41 Alkaline Phosphatase 167 H Total Protein 7.0 Albumin 1.6 L 01/26/20 01/26/20 06:10 13:14 WBC RBC Hgb Hct MCV MCH MCHC RDW Plt Count MPV Absolute Neuts (auto) Neutrophils % Neutrophils % (Manual) Band Neutrophils % Lymphocytes % Lymphocytes % (Manual) Monocytes % Monocytes % (Manual) Eosinophils % Eosinophils % (Manual) Basophils % Basophils % (Manual) Myelocytes % (Man) Promyelocytes % (Man) Blast Cells % (Manual) Nucleated RBC % Metamyelocytes Hypochromia Platelet Estimate Polychromasia Poikilocytosis Anisocytosis Microcytosis Macrocytosis Anticoagulation Therapy Puncture Site Patient Temperature ABG pH ABG pCO2 ABG pO2 ABG HCO3 ABG O2 Sat (Measured) ABG O2 Content ABG Base Excess Kwesi Test Patient On Oxygen O2 Delivery Device Oxygen Flow Rate Vent Mode Vent Rate Mechanical Rate PEEP Pressure Support Vent Sodium Potassium Chloride Carbon Dioxide Anion Gap BUN Creatinine Est GFR (CKD-EPI)AfAm Est GFR (CKD-EPI)NonAf POC Glucometer 357 257 Random Glucose Calcium Phosphorus Magnesium Total Bilirubin AST ALT Alkaline Phosphatase Total Protein Albumin Active Medications Generic Name Dose Route Start Last Admin Trade Name Freq PRN Reason Stop Dose Admin Acetaminophen 650 mg 01/21/20 15:23 01/26/20 05:00 Tylenol - PO 650 mg Q6H PRN Administration FEVER Amino Acids 30 ml 01/13/20 22:00 01/26/20 06:17 Prosource No Carb Liquid Pkt PO 30 ml TID LANCE Administration Atorvastatin Calcium 80 mg 01/12/20 22:00 01/25/20 21:11 Lipitor - PO 80 mg HS LANCE Administration Chlorhexidine Gluconate 1 applic 01/10/20 22:00 01/25/20 21:09 Hibiclens For Decolonization - TP 1 applic HS [facility] Administration Collagenase 1 applic 01/11/20 14:15 01/26/20 10:38 Santyl - TP 1 applic DAILY [facility] Administration Protocol Hydrocortisone Sodium Succinate 100 mg 01/24/20 18:00 01/26/20 10:37 Solu-Cortef - IVPUSH 100 mg Q8H-IV [facility] Administration Propofol 1,000,000 mcg in 100 mls @ 3.876 mls/hr 01/20/20 14:01 01/26/20 09:39 Diprivan - IVPB 50 mcg/kg/min TITR LANCE 38.76 mls/hr Administration Protocol 5 MCG/KG/MIN Vasopressin 40 units/ Sodium 100 mls @ 5 mls/hr 01/24/20 08:00 01/26/20 08:34 Chloride IVPB Not Given ASDIR LANCE Protocol 2 UNITS/HR Meropenem 500 mg/ Dextrose 100 mls @ 200 mls/hr 01/24/20 18:00 01/26/20 10:36 IVPB 200 mls/hr Q8H-IV [facility] Administration Norepinephrine Bitartrate 16, 500 mls @ 9.375 mls/hr 01/24/20 17:00 01/26/20 00:00 000 mcg/ Sodium Chloride IV 15 mcg/min TITR LANCE 28.125 mls/hr Administration Protocol 5 MCG/MIN Fentanyl 500 mcg in 100 mls @ 1 mls/hr 01/24/20 17:00 01/26/20 09:39 Sublimaze Ivpb IVPB 100 mcg/hr TITR LANCE 20 mls/hr Administration 5 MCG/HR Dopamine HCl/Dextrose 400,000 mcg in 250 mls @ 24.001 mls/hr 01/25/20 09:30 01/26/20 10:41 Dopamine 400 Mg/D5w - IVPB 5 mcg/kg/min TITR [facility] 24.001 mls/hr Titration Protocol 5 MCG/KG/MIN Midazolam HCl 100 mg in 100 mls @ 1 mls/hr 01/26/20 01:30 01/26/20 10:39 Midazolam 100mg/100ml-0.9%Nacl IVPB 10 mg/hr TITR [facility] 10 mls/hr Administration Protocol 1 MG/HR Insulin Aspart 1 vial 01/10/20 22:00 01/26/20 06:15 Novolog Vial Sliding Scale - SQ 10 units ACHS [facility] Administration Protocol Insulin Detemir 10 units 01/26/20 12:20 Levemir Vial SQ BID@0700,2200 [facility] Metoprolol Tartrate 5 mg 01/20/20 03:09 01/23/20 16:06 Lopressor Injection - IVPUSH 5 mg Q4H PRN Administration TACHYCARDIA Pantoprazole Sodium 40 mg 01/13/20 10:00 01/26/20 10:37 Protonix Iv IVPUSH 40 mg DAILY [facility] Administration Vancomycin HCl 250 mg 01/18/20 18:00 01/26/20 06:11 Vancomycin Oral Solution PO 250 mg Q6HPO [facility] Administration ASSESSMENT/PLAN: 54 YO F PMH DM, CKD, afib, and chronic LE ulcers presents s/p fall and complained of generalized weakness. Admitted to ICU for acute hypoxic respiratory failure with likely septic shock 2/2 PNA and cellulitis Neuro #Acute Metabolic Encephalopathy 2/2 Infection -Intubated and sedated -Daily weaning trials; assess mental status -CTH: (01/13) moderate acute/subacute R parietal cortical infarct containing 0.5 X0.3 cm focus of acute blood medially -CTH (01/21): Evolving R parietal acute/subacute infarct again seen w/ interval minimal increase tiny foci of hemorrhagic transformation; no shift of midline structures Pulm #Acute Hypoxic Respiratory Failure -Intubated; vent settings: PEEP 15, TV 500, Rate 22, FIO2 100% -Continue to keep SpO2 >90% -c/w Hydrocortisone 100 mg Q8H -ABG: pH 7.126, O2 136.1, CO2 40.1, HCO3 12.9 CV #Septic Shock #Atrial Fibrillation #HTN #Chronic Diastolic CHF -Currently rate-controlled -Maintain MAP >65 -s/p bradycardic arrest (01/24), which resolved with 2 of epinephrine. on amiodarone, dopamine, vasopressin, and norepi drips in AM. Amiodarone was dc a fter amiodarone was finished today. Will try to come down on dopamine first as it can cause arrhythmias. -Atorvastatin 80, Lopressor 5 mg IVP PRN ID #Pneumonia #C. Diff Infection: +cdiff antigen with diarrhea -leukocytosis improved from 37.9 to 29.4. continuous fevers.Tmax 101.5 F. -c/w PO vanc 250 mg Q6H (started 01/17) and IV mereopenem (started 01/23); (previously on Levofloxacin, started 01/21) -sputum culture: E coli resistant to ampicillin, cefazolin, cefuroxime, levofloxacin -urine culture (cuevas). lactose fermenting neg bacilli. <10,000 CFU. -blood culture neg X3 (01/22) -ofirmev PRN for fever -CXR: b/l congestive changes and pleural fluid w/ atelecatsis or infiltrate has diminished. L is still more affected than the Right -ID consult appreciated. drain small abscess left arm -Blood culture and wound culture ordered today. f/u culture Renal #Acute on Chronic Renal Failure -continues to Worsen. BUN/Cr increased from 84.9/3 to 99.7/4.5 -Phosphorus 8.9 -7510 I's. 200 O's. 7310 Balance -continue holding lasix for worsening renal status -continue monitoring I's and O's. -renal consult appreciated. concern for ATN s/p bradycardic cardiac arrest. avoid NSAIDs, nephrotoxic agents Endo #DM -increased to Levemir 10 -BGM/ISS ACHS FEN -no IVf -monitor lytes -Tube Feed Nepro @30 ml/hr Prophylaxis DVT: On home Eliquis 5 BID GI: Protonix 40 IV QD Lines Intubated: 01/10 Cuevas: 01/09 RIJ: 01/18/2020. new central inserted today on 01/26/20 L axillary A line (01/24) Dispo -maintain ICU ATTENDING PHYSICIAN STATEMENT I saw and evaluated the patient. I reviewed the resident's note and discussed the case with the resident. I agree with the resident's findings and plan as documented. SUBJECTIVE: OBJECTIVE: ASSESSMENT AND PLAN:
--- NOTE | 2020-01-26 14:07 | PN ---
Progress Note, Physician History of Present Illness: Pt seen and examined at bedside. She remains in the ICU. She remains intubated. - Current Medication List Current Medications: Active Medications Acetaminophen (Tylenol -) 650 mg PO Q6H PRN PRN Reason: FEVER Last Admin: 01/26/20 05:00 Dose: 650 mg Documented by: Acetaminophen (Ofirmev Injection -) 1,000 mg IVPB ONCE ONE Stop: 01/26/20 13:51 Amino Acids (Prosource No Carb Liquid Pkt) 30 ml PO TID LANCE Last Admin: 01/26/20 06:17 Dose: 30 ml Documented by: Atorvastatin Calcium (Lipitor -) 80 mg PO HS LANCE Last Admin: 01/25/20 21:11 Dose: 80 mg Documented by: Chlorhexidine Gluconate (Hibiclens For Decolonization -) 1 applic TP HS LANCE Last Admin: 01/25/20 21:09 Dose: 1 applic Documented by: Collagenase (Santyl -) 1 applic TP DAILY LANCE; Protocol Last Admin: 01/26/20 10:38 Dose: 1 applic Documented by: Hydrocortisone Sodium Succinate (Solu-Cortef -) 100 mg IVPUSH Q8H-IV LANCE Last Admin: 01/26/20 10:37 Dose: 100 mg Documented by: Propofol (Diprivan -) 1,000,000 mcg in 100 mls @ 3.876 mls/hr IVPB TITR LANCE; Protocol Last Admin: 01/26/20 13:48 Dose: 50 mcg/kg/min, 38.76 mls/hr Documented by: Vasopressin 40 units/ Sodium (Chloride) 100 mls @ 5 mls/hr IVPB ASDIR LANCE; Protocol Last Admin: 01/26/20 13:50 Dose: 2.4 units/hr, 6 mls/hr Documented by: Meropenem 500 mg/ Dextrose 100 mls @ 200 mls/hr IVPB Q8H-IV LANCE Last Admin: 01/26/20 10:36 Dose: 200 mls/hr Documented by: Norepinephrine Bitartrate 16, (000 mcg/ Sodium Chloride) 500 mls @ 9.375 mls/hr IV TITR LANCE; Protocol Last Admin: 01/26/20 00:00 Dose: 15 mcg/min, 28.125 mls/hr Documented by: Fentanyl (Sublimaze Ivpb) 500 mcg in 100 mls @ 1 mls/hr IVPB TITR [facility] Last Admin: 01/26/20 13:51 Dose: 100 mcg/hr, 20 mls/hr Documented by: Dopamine HCl/Dextrose (Dopamine 400 Mg/D5w -) 400,000 mcg in 250 mls @ 24.001 mls/hr IVPB TITR [facility]; Protocol Last Titration: 01/26/20 10:41 Dose: 5 mcg/kg/min, 24.001 mls/hr Documented by: Midazolam HCl (Midazolam 100mg/100ml-0.9%Nacl) 100 mg in 100 mls @ 1 mls/hr IVPB TITR [facility]; Protocol Last Admin: 01/26/20 10:39 Dose: 10 mg/hr, 10 mls/hr Documented by: Insulin Aspart (Novolog Vial Sliding Scale -) 1 vial SQ ACHS [facility]; Protocol Last Admin: 01/26/20 13:52 Dose: 6 units Documented by: Insulin Detemir (Levemir Vial) 10 units SQ BID@0700,2200 [facility] Last Admin: 01/26/20 13:52 Dose: Not Given Documented by: Metoprolol Tartrate (Lopressor Injection -) 5 mg IVPUSH Q4H PRN PRN Reason: TACHYCARDIA Last Admin: 01/23/20 16:06 Dose: 5 mg Documented by: Pantoprazole Sodium (Protonix Iv) 40 mg IVPUSH DAILY [facility] Last Admin: 01/26/20 10:37 Dose: 40 mg Documented by: Vancomycin HCl (Vancomycin Oral Solution) 250 mg PO Q6HPO [facility] Last Admin: 01/26/20 12:10 Dose: 250 mg Documented by: - Objective Vital Signs: Vital Signs Temperature 103.5 F H 01/26/20 10:00 Pulse Rate 101 H 01/26/20 12:00 Respiratory Rate 27 H 01/26/20 12:25 Blood Pressure 93/50 L 01/26/20 12:00 O2 Sat by Pulse Oximetry (%) 100 01/26/20 12:00 Constitutional: Yes: Calm Eyes: Yes: Conjunctiva Clear HENT: Yes: Atraumatic Neck: Yes: Supple Cardiovascular: Yes: S1, S2 Respiratory: Yes: Mechanically Ventilated Gastrointestinal: Yes: Soft, Abdomen, Obese Genitourinary: Yes: Johnson Present Musculoskeletal: Yes: Muscle Weakness Edema: No Neurological: Yes: Lethargy Labs: CBC, BMP 01/26/20 06:00 01/26/20 06:00 INR, PTT INR 1.17 (0.83-1.09) H 01/15/20 06:30 Fibrinogen > 500.0 mg/dL (238-498) H 01/15/20 06:30 Problem List - Problems (1) NOVA (acute kidney injury) Code(s): N17.9 - ACUTE KIDNEY FAILURE, UNSPECIFIED (2) DM2 (diabetes mellitus, type 2) Code(s): E11.9 - TYPE 2 DIABETES MELLITUS WITHOUT COMPLICATIONS Qualifiers: Diabetes mellitus terminal supervisor insulin use: with terminal supervisor use Diabetes mellitus complication detail: with other circulatory complications (3) Hyperkalemia Code(s): E87.5 - HYPERKALEMIA (4) Metabolic acidosis Code(s): E87.2 - ACIDOSIS Assessment/Plan Current Medications Generic Name Dose Route Start Last Admin Trade Name Freq PRN Reason Stop Dose Admin Acetaminophen 650 mg 01/21/20 15:23 01/26/20 05:00 Tylenol - PO 650 mg Q6H PRN Administration FEVER Acetaminophen 1,000 mg 01/26/20 13:50 Ofirmev Injection - IVPB 01/26/20 13:51 ONCE ONE Amino Acids 30 ml 01/13/20 22:00 01/26/20 06:17 Prosource No Carb Liquid Pkt PO 30 ml TID LANCE Administration Atorvastatin Calcium 80 mg 01/12/20 22:00 01/25/20 21:11 Lipitor - PO 80 mg HS LANCE Administration Chlorhexidine Gluconate 1 applic 01/10/20 22:00 01/25/20 21:09 Hibiclens For Decolonization - TP 1 applic HS LANCE Administration Collagenase 1 applic 01/11/20 14:15 01/26/20 10:38 Santyl - TP 1 applic DAILY LANCE Administration Protocol Hydrocortisone Sodium Succinate 100 mg 01/24/20 18:00 01/26/20 10:37 Solu-Cortef - IVPUSH 100 mg Q8H-IV LANCE Administration Propofol 1,000,000 mcg in 100 mls @ 3.876 mls/hr 01/20/20 14:01 01/26/20 13:48 Diprivan - IVPB 50 mcg/kg/min TITR LANCE 38.76 mls/hr Administration Protocol 5 MCG/KG/MIN Vasopressin 40 units/ Sodium 100 mls @ 5 mls/hr 01/24/20 08:00 01/26/20 13:50 Chloride IVPB 2.4 units/hr ASDIR LANCE 6 mls/hr Administration Protocol 2 UNITS/HR Meropenem 500 mg/ Dextrose 100 mls @ 200 mls/hr 01/24/20 18:00 01/26/20 10:36 IVPB 200 mls/hr Q8H-IV LANCE Administration Norepinephrine Bitartrate 16, 500 mls @ 9.375 mls/hr 01/24/20 17:00 01/26/20 00:00 000 mcg/ Sodium Chloride IV 15 mcg/min TITR LANCE 28.125 mls/hr Administration Protocol 5 MCG/MIN Fentanyl 500 mcg in 100 mls @ 1 mls/hr 01/24/20 17:00 01/26/20 13:51 Sublimaze Ivpb IVPB 100 mcg/hr TITR LANCE 20 mls/hr Administration 5 MCG/HR Dopamine HCl/Dextrose 400,000 mcg in 250 mls @ 24.001 mls/hr 01/25/20 09:30 01/26/20 10:41 Dopamine 400 Mg/D5w - IVPB 5 mcg/kg/min TITR LANCE 24.001 mls/hr Titration Protocol 5 MCG/KG/MIN Midazolam HCl 100 mg in 100 mls @ 1 mls/hr 01/26/20 01:30 01/26/20 10:39 Midazolam 100mg/100ml-0.9%Nacl IVPB 10 mg/hr TITR LANCE 10 mls/hr Administration Protocol 1 MG/HR Insulin Aspart 1 vial 01/10/20 22:00 01/26/20 13:52 Novolog Vial Sliding Scale - SQ 6 units ACHS LANCE Administration Protocol Insulin Detemir 10 units 01/26/20 12:20 01/26/20 13:52 Levemir Vial SQ Not Given BID@0700,2200 [facility] Metoprolol Tartrate 5 mg 01/20/20 03:09 01/23/20 16:06 Lopressor Injection - IVPUSH 5 mg Q4H PRN Administration TACHYCARDIA Pantoprazole Sodium 40 mg 01/13/20 10:00 01/26/20 10:37 Protonix Iv IVPUSH 40 mg DAILY LANCE Administration Vancomycin HCl 250 mg 01/18/20 18:01/26/20 12:10 Vancomycin Oral Solution PO 250 mg Q6HPO LANCE Administration Impression 1. NOVA 2. hyperkalemia 3. obesity 4. DM 5. a-fib 6. HTN 7. chronic lower extremity ulcers 8. gastritis 9. sepsis 10. hyperglycemia 11. metabolic acidosis 12. peripheral vascular disease 13. acute resp failure 14. shock 15. cva 16. thrombocytopenia 17. cardiac arrest Plan - cont pressors - maintain map 65 - will give bicarb - renal function worsening, likely atn - s/p cardiac arrest yesterday - monitor urine output - cont wound care - abx per ID - follow cultures - avoid nsaids - avoid nephrotoxins
[2020-01-26] MEDS: ACETAMINOPHEN 1000 MG/100 ML VIAL (NON FORMULARY) IVPB ONE ×2 (14:11→18:21)
--- NOTE | 2020-01-26 17:58 | PN ---
Progress Note (short form) - Note Progress Note: remains intubated and sedated multiple pressors unchanged Vital Signs Period Temp Pulse Resp BP Sys/Callahan Pulse Ox Last 24 Hr 100.2 F-103.5 F 98-122 18-28 93-152/50-92 95-100 cor-rrr lungs decreased bs at bases abd soft ext venous stsis with shallow ulcers small abscess left forearm CBC, BMP 01/26/20 06:00 01/26/20 06:00 Microbiology 01/21/20 17:00 Blood - Peripheral Venous Blood Culture - Final NO GROWTH AFTER 5 DAYS INCUBATION 01/21/20 17:00 Blood - Peripheral Venous Blood Culture - Final NO GROWTH AFTER 5 DAYS INCUBATION 01/24/20 10:00 Urine - Urine Johnson Urine Culture - Final Lactose Fermenting Neg Bacilli 01/18/20 21:35 Sputum - Endotrachea Suction/Ventilator Gram Stain - Final 01/18/20 21:35 Sputum - Endotrachea Suction/Ventilator Sputum Culture - Final Stenotrophomon.(X.)Maltophilia Yeast Like Organism 01/24/20 12:50 Sputum - Endotrachea Suction/Ventilator Gram Stain - Final 01/24/20 12:50 Sputum - Endotrachea Suction/Ventilator Sputum Culture - Final Escherichia Coli Yeast Like Organism 01/23/20 17:30 Blood - Peripheral Venous Blood Culture - Preliminary NO GROWTH OBTAINED AFTER 48 HOURS, INCUBATION TO CONTINUE FOR 3 DAYS. 01/23/20 17:30 Blood - Peripheral Venous Blood Culture - Preliminary NO GROWTH OBTAINED AFTER 48 HOURS, INCUBATION TO CONTINUE FOR 3 DAYS. 01/18/20 18:00 Blood - Central Line Blood Culture - Final NO GROWTH AFTER 5 DAYS INCUBATION 01/18/20 18:00 Blood - Central Line Blood Culture - Final NO GROWTH AFTER 5 DAYS INCUBATION 01/16/20 10:02 Blood - Peripheral Venous Blood Culture - Final NO GROWTH AFTER 5 DAYS INCUBATION 01/16/20 10:02 Blood - Peripheral Venous Blood Culture - Final NO GROWTH AFTER 5 DAYS INCUBATION 01/17/20 12:50 Sputum - Endotrachea Suction/Ventilator Gram Stain - Final 01/17/20 12:50 Sputum - Endotrachea Suction/Ventilator Sputum Culture - Final Stenotrophomon.(X.)Maltophilia Yeast Like Organism 01/17/20 15:00 Stool Clostridioides difficile Antigen - Final 01/17/20 15:00 Stool Clostridioides difficile Toxin Assay - Final 01/10/20 11:10 Blood - Peripheral Venous Blood Culture - Final NO GROWTH AFTER 5 DAYS INCUBATION 01/10/20 11:10 Blood - Peripheral Venous Blood Culture - Final NO GROWTH AFTER 5 DAYS INCUBATION 01/10/20 11:10 Leg - Right Lower Gram Stain - Final 01/10/20 11:10 Leg - Right Lower Wound Culture - Final Klebsiella Pneumoniae Proteus Mirabilis Enterococcus Avium Lactose Fermenting Neg Bacilli 01/10/20 16:00 Urine - Urine - Catheterized Urine Culture - Final NO GROWTH OBTAINED cxray improved Active Medications Acetaminophen (Tylenol -) 650 mg PO Q6H PRN PRN Reason: FEVER Last Admin: 01/26/20 05:00 Dose: 650 mg Documented by: Amino Acids (Prosource No Carb Liquid Pkt) 30 ml PO TID LANCE Last Admin: 01/26/20 14:12 Dose: 30 ml Documented by: Atorvastatin Calcium (Lipitor -) 80 mg PO HS LANCE Last Admin: 01/25/20 21:11 Dose: 80 mg Documented by: Chlorhexidine Gluconate (Hibiclens For Decolonization -) 1 applic TP HS LANCE Last Admin: 01/25/20 21:09 Dose: 1 applic Documented by: Collagenase (Santyl -) 1 applic TP DAILY LANCE; Protocol Last Admin: 01/26/20 10:38 Dose: 1 applic Documented by: Hydrocortisone Sodium Succinate (Solu-Cortef -) 100 mg IVPUSH Q8H-IV LANCE Last Admin: 01/26/20 10:37 Dose: 100 mg Documented by: Propofol (Diprivan -) 1,000,000 mcg in 100 mls @ 3.876 mls/hr IVPB TITR LANCE; Protocol Last Admin: 01/26/20 14:15 Dose: 50 mcg/kg/min, 38.76 mls/hr Documented by: Vasopressin 40 units/ Sodium (Chloride) 100 mls @ 5 mls/hr IVPB ASDIR LANCE; Protocol Last Admin: 01/26/20 13:50 Dose: 2.4 units/hr, 6 mls/hr Documented by: Meropenem 500 mg/ Dextrose 100 mls @ 200 mls/hr IVPB Q8H-IV LANCE Last Admin: 01/26/20 10:36 Dose: 200 mls/hr Documented by: Norepinephrine Bitartrate 16, (000 mcg/ Sodium Chloride) 500 mls @ 9.375 mls/hr IV TITR LANCE; Protocol Last Admin: 01/26/20 00:00 Dose: 15 mcg/min, 28.125 mls/hr Documented by: Fentanyl (Sublimaze Ivpb) 500 mcg in 100 mls @ 1 mls/hr IVPB TITR LANCE Last Admin: 01/26/20 13:51 Dose: 100 mcg/hr, 20 mls/hr Documented by: Dopamine HCl/Dextrose (Dopamine 400 Mg/D5w -) 400,000 mcg in 250 mls @ 24.001 mls/hr IVPB TITR LANCE; Protocol Last Titration: 01/26/20 10:41 Dose: 5 mcg/kg/min, 24.001 mls/hr Documented by: Midazolam HCl (Midazolam 100mg/100ml-0.9%Nacl) 100 mg in 100 mls @ 1 mls/hr IVPB TITR LANCE; Protocol Last Admin: 01/26/20 10:39 Dose: 10 mg/hr, 10 mls/hr Documented by: Insulin Aspart (Novolog Vial Sliding Scale -) 1 vial SQ ACHS [facility]; Protocol Last Admin: 01/26/20 13:52 Dose: 6 units Documented by: Insulin Detemir (Levemir Vial) 10 units SQ BID@0700,2200 [facility] Last Admin: 01/26/20 13:52 Dose: Not Given Documented by: Metoprolol Tartrate (Lopressor Injection -) 5 mg IVPUSH Q4H PRN PRN Reason: TACHYCARDIA Last Admin: 01/23/20 16:06 Dose: 5 mg Documented by: Pantoprazole Sodium (Protonix Iv) 40 mg IVPUSH DAILY [facility] Last Admin: 01/26/20 10:37 Dose: 40 mg Documented by: Vancomycin HCl (Vancomycin Oral Solution) 250 mg PO Q6HPO [facility] Last Admin: 01/26/20 12:10 Dose: 250 mg Documented by: a/p s/p cardiac arrest septic shock persistent fevers, improving wbc +cdiff antigen with diarrhea, po vancomycin day #7 resp failure worsening renal failure drain small abscess left arm chronic venous stasis ulcers improved new CVA pen allergy continue po vancomycin received iv vanco- blood cultures negative continue meropenem vanco level in am 21 today repeat blood cultures Problem List - Problems (1) Septic shock Code(s): A41.9 - SEPSIS, UNSPECIFIED ORGANISM; R65.21 - SEVERE SEPSIS WITH SEPTIC SHOCK (2) ARF (acute renal failure) Code(s): N17.9 - ACUTE KIDNEY FAILURE, UNSPECIFIED Qualifiers: Acute renal failure type: unspecified Qualified Code(s): N17.9 - Acute kidney failure, unspecified (3) Respiratory failure Code(s): J96.90 - RESPIRATORY FAILURE, UNSP, UNSP W HYPOXIA OR HYPERCAPNIA (4) Penicillin allergy Code(s): Z88.0 - ALLERGY STATUS TO PENICILLIN
[2020-01-26] MEDS: NOREPINEPHRINE BITARTRATE 16,000 MCG in SODIUM CHLORIDE 484 ML IV SCH ×2 (18:19)
[2020-01-26 19:03] VITALS: TEMP 100.2
[2020-01-26] MEDS: ATORVASTATIN CA 80 MG TABLET (FP) PO SCH (21:16)
[2020-01-26] MEDS: CHLORHEXIDINE GLUCONATE 4% CLEANSER FOR DECOLONIZATION TP SCH (21:27)
[2020-01-26] MEDS ORDERED: ATROPINE SULFATE 1 MG/10 ML DISP.SYRIN ONE (23:47)
[2020-01-27] MEDS ORDERED: EPINEPHrine 1:10,000 (P-F SYR) 1 MG/10 ML DISP.SYRIN ONE (01:09)
--- NOTE | 2020-01-27 01:41 | RAPID ---
Physical Examination Vital Signs: Vital Signs Temperature 100.2 F H 01/26/20 18:00 Pulse Rate 94 H 01/26/20 23:30 Respiratory Rate 27 H 01/27/20 00:17 Blood Pressure 91/41 L 01/26/20 23:30 O2 Sat by Pulse Oximetry (%) 100 01/26/20 20:33 Labs: CBC, BMP 01/26/20 06:00 01/26/20 06:00 Rapid Response - Rapid Response Assessment: Patient coded at 12:22 and Code 99 called at 12:22. No pulses were felt, CPR started immediately, epi was given. Floor team and Code team responded promptly. Rosc was achieved at 12:26 Vitals: BP 109/47, HR 61. Patient's brother was contacted during code, he still wanted everything to be done for patient and she remained full code. All teams stayed by in case patient coded again. Patient went into cardiac arrest again at 12:40, compression started immediately, epi x2 &bicarb were given. ACLS was done for 35 minutes, pulse was unable to be regained. Time of was called at 1:15 AM. Patient's brother Harman was notified again during the second code and notified after time of . Outcome: Patient 1:15 AM Primary Physician Notified: Onur Maxwell Time PMD Notified: 01:44 Critical Care Total Critical Care Time (in minutes): 60 Critical Care Statement: The care of this patient involved high complexity decision making to prevent further life threatening deterioration of the pa tient's condition and/or to evaluate & treat vital organ system(s) failure or risk of failure.
[2020-01-27 01:51] VITALS: BP 124/60; PULSE 75
--- NOTE | 2020-01-27 20:53 | DS ---
Physical Exam: SUBJECTIVE: Patient seen and examined OBJECTIVE: Vital Signs Period Temp Pulse Resp BP Sys/Callahan Pulse Ox Last 24 Hr 75-97 27-27 91-124/41-60 80 PHYSICAL EXAM GENERAL: The patient is awake, alert, and fully oriented, in no acute distress. HEAD: Normal with no signs of trauma. EYES: PERRL, extraocular movements intact, sclera anicteric, conjunctiva clear. ENT: Ears normal, nares patent, oropharynx clear without exudates, moist mucous membranes. NECK: Trachea midline, full range of motion, supple. LUNGS: Breath sounds equal, clear to auscultation bilaterally, no wheezes, no crackles, no accessory muscle use. HEART: Regular rate and rhythm, S1, S2 without murmur, rub or gallop. ABDOMEN: Soft, nontender, nondistended, normoactive bowel sounds, no guarding, no rebound, no hepatosplenomegaly, no masses. EXTREMITIES: 2+ pulses, warm, well-perfused, no edema. NEUROLOGICAL: Cranial nerves II through XII grossly intact. Normal speech, gait not observed. PSYCH: Normal mood, normal affect. SKIN: Warm, dry, normal turgor, no rashes or lesions noted. LABS Laboratory Results - last 24 hr 01/26/20 21:25 POC Glucometer 348 HOSPITAL COURSE: Date of Admission:01/10/20 Date of Discharge: 01/27/20 Discharge Summary Problems reviewed: Yes Reason For Visit: ACUTE KIDNEY INJURY Condition: Critical - Instructions Disposition: - Home Medications Comprehensive Discharge Medication List: Ambulatory Orders Apixaban [Eliquis -] 5 mg PO BID #60 tablet 11/05/19 Ferrous Sulfate [Iron] 325 mg PO BID #60 tablet 11/05/19 Folic Acid 1 mg PO DAILY #30 tablet 11/05/19 Furosemide [Lasix -] 20 mg PO DAILY #30 tablet 11/05/19 Gabapentin [Neurontin -] 600 mg PO TID #180 capsule 11/05/19 traMADol HCL [Ultram -] 50 mg PO Q8H 7 Days #21 tablet MDD 3 11/06/19 Enalapril Maleate [Vasotec -] 5 mg PO DAILY 01/12/20 Insulin Glargine,Hum.rec.anlog [Lantus Solostar] 15 unit SQ HS 01/12/20 Metoprolol Succinate [Toprol Xl] 25 mg PO DAILY 01/12/20 Oxycodone HCl/Acetaminophen [Oxycodon-Acetaminophen 7.5-325] 1 tab PO DAILY 01/12/20 Potassium Chloride 10 meq PO DAILY 01/12/20 - Discharge Referral Referred to [facility] No ATTENDING PHYSICIAN STATEMENT I saw and evaluated the patient. I reviewed the resident's note and discussed the case with the resident. I agree with the resident's findings and plan as documented. SUBJECTIVE: OBJECTIVE: ASSESSMENT AND PLAN:
[2020-01-31 15:26] LABS: B2-GLYCOPROTEIN IGA <10; B2-GLYCOPROTEIN IGG <10; B2-GLYCOPROTEIN IGM <10
[2020-01-31 15:27] LABS: CARDIOLIPIN AB IGA <10
[2020-01-31 15:28] LABS: DRVVT CONFIRM SECONDS 47.4
[2020-01-31 15:29] LABS: HEXAGONAL PHOSPHOLIPID NEUTRAL 4
[2020-01-31 15:35] LABS: APTT 32.9
== END 2020-01-27 02:00 | disposition expired | DRG 870 ==
LOC: JER 10:12 → JERBED 15:59 → JICU 18:08
PROVIDERS: ADMIT Internal Medicine Pulmonary Disease; ATTEND Internal Medicine Pulmonary Disease
PROC: 0CHY7BZ Insertion of Airway into Mouth and Throat, Via Natural or Artificial Opening (ICD-10-PCS; principal; 2020-01-11)
PROC: 5A1955Z Respiratory Ventilation, Greater than 96 Consecutive Hours (ICD-10-PCS; 2020-01-11)
PROC: 05HN33Z Insertion of Infusion Device into Left Internal Jugular Vein, Percutaneous Approach (ICD-10-PCS; 2020-01-11)
PROC: B544ZZA Ultrasonography of Left Jugular Veins, Guidance (ICD-10-PCS; 2020-01-11)
PROC: 30233R1 Transfusion of Nonautologous Platelets into Peripheral Vein, Percutaneous Approach (ICD-10-PCS; 2020-01-14)
PROC: 5A12012 Performance of Cardiac Output, Single, Manual (ICD-10-PCS; 2020-01-27)
DX: A41.89 Other specified sepsis (principal); R65.21 Severe sepsis with septic shock; J96.01 Acute respiratory failure with hypoxia; G93.41 Metabolic encephalopathy; I63.9 Cerebral infarction, unspecified; J18.9 Pneumonia, unspecified organism; E87.2 Acidosis; L03.116 Cellulitis of left lower limb; L03.115 Cellulitis of right lower limb; N17.9 Acute kidney failure, unspecified; Z68.42 Body mass index [BMI] 45.0-49.9, adult; L97.828 Non-pressure chronic ulcer of other part of left lower leg with other specified severity; L97.818 Non-pressure chronic ulcer of other part of right lower leg with other specified severity; I48.20 Chronic atrial fibrillation, unspecified; A04.72 Enterocolitis due to Clostridium difficile, not specified as recurrent; L02.414 Cutaneous abscess of left upper limb; E87.5 Hyperkalemia; G47.33 Obstructive sleep apnea (adult) (pediatric); R59.0 Localized enlarged lymph nodes; D72.829 Elevated white blood cell count, unspecified; K76.0 Fatty (change of) liver, not elsewhere classified; R00.0 Tachycardia, unspecified; I46.9 Cardiac arrest, cause unspecified; F31.9 Bipolar disorder, unspecified; E11.65 Type 2 diabetes mellitus with hyperglycemia; E11.51 Type 2 diabetes mellitus with diabetic peripheral angiopathy without gangrene; E11.622 Type 2 diabetes mellitus with other skin ulcer; D69.6 Thrombocytopenia, unspecified; I12.9 Hypertensive chronic kidney disease with stage 1 through stage 4 chronic kidney disease, or unspecified chronic kidney disease; E11.22 Type 2 diabetes mellitus with diabetic chronic kidney disease; N18.9 Chronic kidney disease, unspecified; E66.9 Obesity, unspecified; R00.1 Bradycardia, unspecified; K29.70 Gastritis, unspecified, without bleeding; W18.39XA Other fall on same level, initial encounter; Y92.098 Other place in other non-institutional residence as the place of occurrence of the external cause; Z79.4 Long term (current) use of insulin; Z88.0 Allergy status to penicillin; Z91.14 Patient's other noncompliance with medication regimen
CPT/HCPCS: 36415; 36430; 36511; 36600; 70450-TC; 71045-TC-FY; 72125-TC; 73590-TC-LT-FY; 73590-TC-RT-FY; 80048; 80053; 81003; 82272; 82533; 82542; 82550; 82553; 82565; 82728; 82803; 82962; 83010; 83540; 83550; 83605; 83615; 83735; 83930; 84100; 84300; 84484; 85025; 85027; 85384; 85597; 85610; 85613; 85730; 85732; 86022; 86038; 86146; 86147; 86431; 86803; 86850; 86880; 86900; 86901; 87040; 87070; 87077; 87086; 87106; 87186; 87205; 87324; 87340; 87449; 93005; 93010; 93306-TC; 94002; 99291; G0480; J0131; J1644; J3243; P9034; P9038; U0003